=== PATIENT | male | born 1950 | race Caucasian/White ===

== ENCOUNTER → 2024-09-04 | Outpatient (CLI) | payer MEDICARE, SELFPAY ==
[2024-09-04 12:20] LABS: Absolute Lymphocyte Count 1.51 X10^3/uL (0.83-4.51); Absolute Neutrophil Count 3.3 X10^3/uL (2.0-7.7); Basophil# 0.08 X10^3/uL; Basophil% 1.4 % (0-1); Eosinophil# 0.22 X10^3/uL; Eosinophils% 3.9 % (0-5); Hemoglobin 12.1 g/dL (13.0-16.5); Lymphocyte # 1.51 X10^3/ul (0.83-4.51); Mean Corp Hgb Conc 34.6 g/dL (32-36); Mean Corpuscular Hgb 35.8 pg (27.0-32.0); Mean Corpuscular Volume 103.6 fL (80-94); Mean Platelet Vol. 12.2 fl (6.2-12.0); Monocyte# 0.47 X10^3/uL; Monocyte% 8.4 % (0-10); NRBC Flagged by Analyzer 0 % (0-5); Neutrophil # 3.29 X10^3/uL (2.7-7.7); Neutrophil % 58.8 % (47-70); Platelet Count 220 K/mm3 (150-450); RBC Distribution Width CV 12.1 % (11.6-14.6); RBC Distribution Width SD 45.8 fl (35.1-43.9); Red Blood Count 3.38 M/mm3 (4.6-6.2); White Blood Count 5.6 K/mm3 (4.4-11.0)
[2024-09-04 12:48] LABS: AST(SGOT) 24 U/L (15-37); Alanine Aminotransfer ALT/SGPT 25 U/L (16-61); Albumin, Serum 3.3 g/dL (3.2-5.0); Alkaline Phosphatase 37 U/L (45-117); Anion Gap 5 (5-15); BUN 21 mg/dL (7-18); BUN/Creat Ratio 11.6 RATIO (10-20); Chloride 103 mmol/L (98-107); Creatinine, Serum 1.81 mg/dL (0.70-1.30); EST Glomerular Filtration Rate 39 mL/min (>60); Est Glom Filt Rate - Afr Amer 47 mL/min (>60); Globulin 3.4 g/dL (2.2-4.2); Glucose 246 mg/dL (74-106); Potassium 4.7 mmol/L (3.5-5.1); Protein, Total 6.7 g/dL (6.4-8.2); Sodium Level 133 mmol/L (136-145); T4 Free Direct 0.89 ng/dL (0.76-1.46)
[2024-09-04 13:36] LABS: Hemoglobin A1c 7.5 % (3.8-5.6)
== END | disposition home or self-care (01) ==
PROVIDERS: PCP Internal Medicine
DX: E11.22 Type 2 diabetes mellitus with diabetic chronic kidney disease (principal); Z79.4 Long term (current) use of insulin; N18.32 Chronic kidney disease, stage 3b
CPT/HCPCS: 36415; 80053; 83036; 84439; 84443; 85025

== ENCOUNTER → 2024-12-02 | Outpatient (CLI) | payer MEDICARE, MEDICAID, SELFPAY ==
[2024-12-02 13:22] LABS: Absolute Lymphocyte Count 2.44 X10^3/uL (0.83-4.51); Absolute Neutrophil Count 3.9 X10^3/uL (2.0-7.7); Basophil# 0.05 X10^3/uL; Basophil% 0.7 % (0-1); Eosinophils% 4.1 % (0-5); Hematocrit 35.9 % (40-54); Lymphocyte # 2.44 X10^3/ul (0.83-4.51); Lymphocyte % 33.7 % (19-41); Mean Corp Hgb Conc 33.4 g/dL (32-36); Mean Corpuscular Hgb 33.3 pg (27.0-32.0); Mean Corpuscular Volume 99.7 fL (80-94); Mean Platelet Vol. 11.4 fl (6.2-12.0); Monocyte# 0.55 X10^3/uL; Monocyte% 7.6 % (0-10); NRBC Flagged by Analyzer 0 % (0-5); Neutrophil # 3.87 X10^3/uL (2.7-7.7); Neutrophil % 53.3 % (47-70); Platelet Count 277 K/mm3 (150-450); RBC Distribution Width SD 47.8 fl (35.1-43.9); White Blood Count 7.3 K/mm3 (4.4-11.0)
[2024-12-02 13:50] LABS: Vitamin B12 440 pg/mL (211-911)
[2024-12-02 14:12] LABS: Microalbumin:Creatinine Ratio 491.2 mg/g CRE (<30 mg/g CRE)
[2024-12-02 14:29] LABS: ALB/GLOB Ratio 0.9 RATIO (0.9-2.4); AST(SGOT) 33 U/L (15-37); Alanine Aminotransfer ALT/SGPT 31 U/L (16-61); Albumin, Serum 3.6 g/dL (3.2-5.0); Alkaline Phosphatase 42 U/L (45-117); Anion Gap 7 (5-15); BUN 24 mg/dL (7-18); Calcium,Total 9.4 mg/dL (8.5-10.1); Chloride 107 mmol/L (98-107); Creatinine, Serum 1.85 mg/dL (0.70-1.30); EST Glomerular Filtration Rate 38 mL/min (>60); Est Glom Filt Rate - Afr Amer 46 mL/min (>60); Ferritin 190 ng/mL (26-388); Globulin 3.8 g/dL (2.2-4.2); Glucose 156 mg/dL (74-106); Iron 97 ug/dL (65-175); Iron Binding Capacity,Total 377 ug/dL (250-450); Magnesium 2.1 mg/dL (1.6-2.6); Potassium 4.8 mmol/L (3.5-5.1); Protein, Total 7.4 g/dL (6.4-8.2); Sodium Level 139 mmol/L (136-145); T4 Free Direct 0.94 ng/dL (0.76-1.46)
[2024-12-05 13:07] LABS: Zinc, WHOLE BLOOD 632 ug/dL (440-860)
[2024-12-06 14:08] LABS: Methylmalonic Acid Bld 295 nmol/L (0-378)
== END | disposition home or self-care (01) ==
PROVIDERS: PCP Internal Medicine; Referring Provider Internal Medicine; Visit Provider Internal Medicine
DX: E11.59 Type 2 diabetes mellitus with other circulatory complications (principal); E11.65 Type 2 diabetes mellitus with hyperglycemia; Z79.4 Long term (current) use of insulin; R53.82 Chronic fatigue, unspecified; I15.2 Hypertension secondary to endocrine disorders; D64.9 Anemia, unspecified
CPT/HCPCS: 36415; 80053; 82043; 82570; 82607; 82728; 82746; 83540; 83550; 83735; 83921; 84439; 84443; 84630; 85025

== ENCOUNTER → 2024-12-24 | Outpatient (CLI) | payer MEDICARE, MEDICAID, SELFPAY ==
[2024-12-24 20:32] LABS: BUN 35 mg/dL (4-19); BUN/Creat Ratio 17.5 RATIO (10-20); EST Glomerular Filtration Rate 35 (>60); Glucose 158 mg/dL (70-99); Phosphorus 3.3 mg/dL (2.7-4.5)
[2024-12-24 20:42] LABS: Protein, Urine (Random) 35 mg/dL (<=12); Protein:Creat Ratio 383 mg/g CRE (0-200)
[2024-12-25 03:42] LABS: Carbon Dioxide 20.2 mmol/L (21.0-32.0); Chloride 103 mmol/L (98-107); Potassium 4.8 mmol/L (3.5-5.1); Sodium Level 140 mmol/L (136-145)
== END | disposition home or self-care (01) ==
LOC: LAB 13:00
PROVIDERS: PCP Internal Medicine
DX: N18.32 Chronic kidney disease, stage 3b (principal)
CPT/HCPCS: 36415; 80069; 82570; 84156

== ENCOUNTER → 2025-01-27 | Outpatient (REF) | payer MEDICARE, MEDICAID, SELFPAY ==
[2025-01-27 08:38] LABS: Hematocrit 31.4 % (40-54); Hemoglobin 10.7 g/dL (13.0-16.5); Mean Corp Hgb Conc 34.1 g/dL (32-36); Mean Corpuscular Hgb 33.2 pg (27.0-32.0); Mean Corpuscular Volume 97.5 fL (80-94); Mean Platelet Vol. 11.5 fl (6.2-12.0); Platelet Count 339 K/mm3 (150-450); RBC Distribution Width CV 13.4 % (11.6-14.6); RBC Distribution Width SD 47.8 fl (35.1-43.9); Red Blood Count 3.22 M/mm3 (4.6-6.2); White Blood Count 7.4 K/mm3 (4.4-11.0)
[2025-01-27 09:03] LABS: Magnesium 1.7 mg/dL (1.5-2.2); Vitamin B12 536 pg/mL (180-914); Vitamin D,25 Hydroxy 14.8 ng/mL (30-100)
[2025-01-27 09:12] LABS: Hemoglobin A1c 7.7 % (<=5.6)
[2025-01-27 09:22] LABS: Cholesterol 116 mg/dL (<=200); High Density Lipoprotein 28 mg/dL; Low Density Lipoprotein Calc. 37 mg/dL; Triglycerides 255 mg/dL; Very Low Density Lipoprotein 51 mg/dL (5-40); cholesterol:hdl ratio screen 4.11
[2025-01-27 09:23] LABS: ALB/GLOB Ratio 1.3 RATIO (0.9-2.4); AST(SGOT) 20 U/L (<=37); Alanine Aminotransfer ALT/SGPT 17 U/L (<=46); Albumin, Serum 3.5 g/dL (3.4-4.8); Alkaline Phosphatase 44 U/L (40-129); Anion Gap 12 (5-15); BUN 41 mg/dL (4-19); BUN/Creat Ratio 18.5 RATIO (10-20); Calcium,Total 9.5 mg/dL (7.6-11.0); Carbon Dioxide 17.6 mmol/L (21.0-32.0); Chloride 105 mmol/L (98-108); EST Glomerular Filtration Rate 30 (>60); Globulin 2.7 g/dL (2.2-4.2); Glucose 258 mg/dL (70-99); Potassium 5.1 mmol/L (3.3-5.1); Protein, Total 6.3 g/dL (5.9-8.4); Sodium Level 135 mmol/L (133-145); Total Bilirubin < 0.15 mg/dL (0.00-1.30)
== END ==
LOC: OLS.SWAL 04:00
PROVIDERS: PCP Internal Medicine; Referring Provider Internal Medicine; Visit Provider Internal Medicine
DX: D64.9 Anemia, unspecified (principal); I10 Essential (primary) hypertension; E78.5 Hyperlipidemia, unspecified
CPT/HCPCS: 36415; 80053; 80061; 82306; 82607; 83036; 83735; 84443; 85027

== ENCOUNTER → 2025-02-19 | Outpatient (REF) | payer MEDICARE, MEDICAID, SELFPAY ==
[2025-02-19 09:13] LABS: Hematocrit 26.7 % (40-54); Hemoglobin 9.2 g/dL (13.0-16.5); Mean Corp Hgb Conc 34.5 g/dL (32-36); Mean Corpuscular Hgb 33.1 pg (27.0-32.0); Mean Platelet Vol. 11.7 fl (6.2-12.0); Platelet Count 253 K/mm3 (150-450); RBC Distribution Width CV 12.7 % (11.6-14.6); RBC Distribution Width SD 44.9 fl (35.1-43.9); Red Blood Count 2.78 M/mm3 (4.6-6.2); White Blood Count 8.5 K/mm3 (4.4-11.0)
[2025-02-19 09:37] LABS: Albumin, Serum 3.1 g/dL (3.4-4.8); Anion Gap 11 (5-15); BUN 35 mg/dL (4-19); BUN/Creat Ratio 19.4 RATIO (10-20); Calcium,Total 8.7 mg/dL (7.6-11.0); Carbon Dioxide 19.7 mmol/L (21.0-32.0); Chloride 100 mmol/L (98-108); Creatinine, Serum 1.78 mg/dL (0.70-1.20); EST Glomerular Filtration Rate 39 (>60); Glucose 324 mg/dL (70-99); Phosphorus 3.1 mg/dL (2.7-4.5); Potassium 4.3 mmol/L (3.3-5.1); Sodium Level 131 mmol/L (133-145)
== END ==
LOC: OLS.SWAL 08:10
PROVIDERS: PCP Internal Medicine
DX: D64.9 Anemia, unspecified (principal); N18.32 Chronic kidney disease, stage 3b
CPT/HCPCS: 36415; 80069; 85027

== ENCOUNTER → 2025-02-23 17:50 | Outpatient (REF) | payer MEDICARE, MEDICAID, SELFPAY ==
[2025-02-24 09:03] LABS: Bacteria 0 SEEN /hpf (None Seen); Mucous, Urine 0 SEEN /hpf (<or=2+); Red Blood Cells-Urine 0 SEEN /hpf (0-5); Squamous Epithelial Cells - UA 0 SEEN /hpf (0-5); White Blood Cells 0 SEEN /hpf (0-5)
[2025-02-24 09:32] LABS: Color, Urine Yellow (Yellow); Glucose, Dipstick 250 mg/dl (Normal); Ketone-Dipstick Negative (Negative); Leukocyte Esterase-Dipstick Negative /ul (Negative); Nitrite-Dipstick Negative (Negative); Occult Blood-Urine Negative /ul (Negative); Protein-Dipstick 100 mg/dl (Negative); Specific Gravity, Urine 1.015 (1.002-1.030); Urine Bilirubin Dipstick Negative (Negative); Urine Clarity Clear (Clear); Urine Urobilinogen Normal (Normal)
== END ==
LOC: OLS.SWAL 17:50
PROVIDERS: PCP Internal Medicine; Referring Provider Internal Medicine; Visit Provider Internal Medicine
DX: I10 Essential (primary) hypertension (principal); E11.9 Type 2 diabetes mellitus without complications
CPT/HCPCS: 81001

== ENCOUNTER 2025-04-10 15:16 | Emergency (ER) | payer MEDICARE, MEDICAID, SELFPAY ==
[2025-04-10 15:18] VITALS: BP 72/53; PULSE 72; RESP 16; TEMP 36.2; O2SAT 98
[2025-04-10 15:19] VITALS: BMI 21.7
[2025-04-10 15:32] VITALS: BP 101/61; PULSE 62; RESP 16; O2SAT 97
--- NOTE | 2025-04-10 15:53 | RAD_ITS ---
PROCEDURE: ANKLE MIN 3 VIEWS 04/10/2025 REASON FOR EXAM: PAIN, FALL TECHNIQUE: 3 views of the right ankle COMPARISON: None. RAD/Ankle min 3 Views IMPRESSION: An oblique intra-articular fracture of the distal right fibula is seen, mildly displaced, and also involving a portion of the lateral malleolus. Minimal degenerative changes of the ankle joint are otherwise noted. Mild posterior and inferior calcaneal spurring is seen. Reading Location: [address]
[2025-04-10] MEDS: Acetaminophen 325 MG Tablet 650 MG PO (16:00)
--- NOTE | 2025-04-10 16:00 | RAD_ITS ---
PROCEDURE: KNEE 3 VIEWS 04/10/2025 REASON FOR EXAM: PAIN, FALL TECHNIQUE: Four views of the right knee were performed. COMPARISON: None. FINDINGS: There is no evidence of fracture or dislocation. The patellofemoral joint and the medial and lateral joint space compartments of the knee are maintained. There is no knee joint effusion. There is enthesopathy of the patella. There is chondrocalcinosis of the medial and lateral menisci. There are vascular calcifications in the distal thigh. RAD/Knee 3 Views IMPRESSION: 1. No evidence of acute injury. 2. Chondrocalcinosis consistent with CPPD. 3. Other findings as noted. Reading Location: [place] [id number]
[2025-04-10 16:58] VITALS: BP 142/68; PULSE 64; RESP 16; O2SAT 98
--- NOTE | 2025-04-10 17:01 | ED.VIS.LOWEX ---
HPI <ALLAN Marquez - Last Filed: 04/10/25 17:56> History of Present Illness Chief Complaint: Lower Extremity Injury Narrative Narrative: Patient presenting today with concerns for a right ankle fracture. He had a mechanical fall on Monday, he slipped and twisted his ankle and hit his right knee against something. He did not hit his head, there was no LOC. He lives in an assisted living facility, they did come out and do a x-ray of his right ankle and told him it was broken, he is not sure where. He was not placed in a splint or boot. He was given no follow-up information. He has been walking on his ankle. His daughter came to visit today, he continued to complain of pain to his right knee, they did not do any imaging of his right knee, she became concerned and the facility recommended that she bring him here for evaluation. He otherwise denies any injury. PFSH <ALLAN Marquez - Last Filed: 04/10/25 17:56> [facility] Allergy/AdvReac Type Severity Reaction Status Date / Time No Known Allergies Allergy Verified 04/10/25 15:36 Social History Smoking Status: Former smoker ROS <ALLAN Marquez - Last Filed: 04/10/25 17:56> ROS ED Constitutional Constitutional ED: Denies chills or fever(s) Cardiovascular Cardiovascular: Denies chest pain Respiratory/Chest Respiratory/Chest: Denies dyspnea Gastrointestinal Gastrointestinal: Denies abdominal pain, nausea or vomiting Genitourinary Genitourinary ED: Denies dysuria, hematuria or urinary urgency Musculoskeletal Musculoskeletal: Reports arthralgias Integumentary Denies Abrasions Neurologic Neurologic: Denies paresthesias EXAM <ALLAN Marquez - Last Filed: 04/10/25 17:56> Physical Exam Const Vital Signs: 04/10/25 15:18 04/10/25 15:32 04/10/25 15:33 Temperature 97.2 F L Temperature Source Temporal Pulse Rate 72 62 Respiratory Rate 16 16 Respiratory Effort Normal Respiratory Pattern Normal Blood Pressure 72/53 L 101/61 Blood Pressure Mean 59 74 Pulse Ox 98 97 Oxygen Delivery Method Room Air Room Air 04/10/25 16:58 04/10/25 17:27 Temperature 98.0 F Temperature Source Pulse Rate 64 62 Respiratory Rate 16 17 Respiratory Effort Respiratory Pattern Blood Pressure 142/68 H 151/66 H Blood Pressure Mean 92 94 Pulse Ox 98 98 Oxygen Delivery Method Room Air Positive well nourished, well developed and no apparent distress General Appearance ED: well developed HEENT Reports normocephalic and head/scalp atraumatic Mouth ED: Yes moist mucous membranes normal Eyes PERRL and EOMs intact bilaterally Neck full ROM and supple Chest Wall inspection of chest normal Resp normal respiratory effort and clear to auscultation bilaterally Cardio regular rate and regular rhythm Back/Spine normal ROM and normal to inspection Extremity normal to inspection and full ROM Extremity Narrative: No joint effusion, full range of motion to the right knee, no laxity with varus or valgus stress, negative anterior drawer test. Pain to palpation to the medial aspect of the right knee. Pain to the right lateral malleolus with mild bruising. No significant edema. No tenderness to the right foot, no proximal fibular tenderness. Right DP pulse 2+, good cap refill, sensation intact. Neuro oriented x3, CN's II-XII intact bilaterally, moves all extremities, no focal motor deficits and no sensory deficits noted Sensorium / Orientation: awake and alert Psych mental status grossly normal and thought process normal Skin no rashes or lesions noted and no wounds <Dr. Joel Slaughter DO - Last Filed: 04/11/25 21:12> Physical Exam Const Vital Signs: 04/10/25 15:18 04/10/25 15:32 04/10/25 15:33 Temperature 97.2 F L Temperature Source Temporal Pulse Rate 72 62 Respiratory Rate 16 16 Respiratory Effort Normal Respiratory Pattern Normal Blood Pressure 72/53 L 101/61 Blood Pressure Mean 59 74 Pulse Ox 98 97 Oxygen Delivery Method Room Air Room Air 04/10/25 16:58 04/10/25 17:27 Temperature 98.0 F Temperature Source Pulse Rate 64 62 Respiratory Rate 16 17 Respiratory Effort Respiratory Pattern Blood Pressure 142/68 H 151/66 H Blood Pressure Mean 92 94 Pulse Ox 98 98 Oxygen Delivery Method Room Air MDM <ALLAN Marquez - Last Filed: 04/10/25 17:56> [facility] MDM Narrative Medical decision making narrative: Patient presenting today due to concerns for right knee pain and a right ankle fracture. He had a mechanical fall on Monday causing the right ankle and right knee injury. The facility did x-ray his right ankle and told him it was broken but he was not placed in any splint or boot and has no follow-up information with orthopedics or podiatry. He is wanting to have his right knee examined as well. He initially was labeled as hypotension, however his blood pressure was 151/66. He reports that his blood pressure does run low occasionally. He has no symptoms associated with low blood pressure. X-ray of the right ankle shows a oblique intra-articular fracture of the distal right fibula that is mildly displaced and right knee x-ray shows no acute findings. I did speak with Dr. Badillo, he recommends placing patient in a walking boot and having him follow-up in the office. RICE instructions were discussed. He was given Tylenol here for pain and can continue Tylenol at home as needed. He will be discharged home in stable condition. Radiography X-Ray: Read by ED Physician Diagnostic Testing: Clinical Impression(s) from Imaging Studies Ankle X-Ray 04/10/25 15:53 IMPRESSION: An oblique intra-articular fracture of the distal right fibula is seen, mildly displaced, and also involving a portion of the lateral malleolus. Minimal degenerative changes of the ankle joint are otherwise noted. Mild posterior and inferior calcaneal spurring is seen. Reading Location: [id number] Knee X-Ray 04/10/25 16:00 IMPRESSION: 1. No evidence of acute injury. 2. Chondrocalcinosis consistent with CPPD. 3. Other findings as noted. Reading Location: [id number] <Dr. Jole Dickson-Chela, DO - Last Filed: 04/11/25 21:12> [facility] Narrative Medical decision making narrative: Patient presenting today due to concerns for right knee pain and a right ankle fracture. He had a mechanical fall on Monday causing the right ankle and right knee injury. The facility did x-ray his right ankle and told him it was broken but he was not placed in any splint or boot and has no follow-up information with orthopedics or podiatry. He is wanting to have his right knee examined as well. He initially was labeled as hypotension, however his blood pressure was 151/66. He reports that his blood pressure does run low occasionally. He has no symptoms associated with low blood pressure. X-ray of the right ankle shows a oblique intra-articular fracture of the distal right fibula that is mildly displaced and right knee x-ray shows no acute findings. I did speak with Dr. Badillo, he recommends placing patient in a walking boot and having him follow-up in the office. RICE instructions were discussed. He was given Tylenol here for pain and can continue Tylenol at home as needed. He will be discharged home in stable condition. Supervisory Physician Note Patient was seen and examined with the Advanced Practice Provider. Nursing notes and vital signs have been reviewed. Pertinent old records have been reviewed. I agree with the essential elements of the ELGIN's history, physical exam, assessment, and plan. The differential diagnosis and management options were discussed with the ELGIN. I participated in determining and agree with the management, procedures, final impression and disposition as documented. See changes noted by me. Please see addendum or separate note for any additional details. X-ray of the right knee and right ankle were personally reviewed interpreted by me, ED physician. X-ray of the right knee without dislocation or fracture. X-ray of the right ankle with fracture of the distal right fibula. Patient discussed with orthopedics, agree patient is appropriate for boot. Follow-up in their office. Patient discharged home. Impression: 1. Closed right distal fibula fracture 2. Right knee contusion 3. Mechanical fall Radiography Diagnostic Testing: Clinical Impression(s) from Imaging Studies Ankle X-Ray 04/10/25 15:53 IMPRESSION: An oblique intra-articular fracture of the distal right fibula is seen, mildly displaced, and also involving a portion of the lateral malleolus. Minimal degenerative changes of the ankle joint are otherwise noted. Mild posterior and inferior calcaneal spurring is seen. Reading Location: [id number] Knee X-Ray 04/10/25 16:00 IMPRESSION: 1. No evidence of acute injury. 2. Chondrocalcinosis consistent with CPPD. 3. Other findings as noted. Reading Location: [place] [id number] Discharge Plan Triage Chief Complaint: Lower Extremity Injury Other Complaint: Hypotension ED Midlevel Provider: Rakel Landers ED Provider: Joel Slaughter Dx/Rx/DC Orders Clinical Impression: Closed right ankle fracture, Contusion of knee, right Instructions: ED Ankle Fracture Primary Care Provider: Mickie Mae Referrals: Mickie Mae MD [Primary Care Provider] - Raghav Badillo MD [Med Staff - Active Staff] - 5-7 Days Activity Restrictions/Additional Instructions: Follow-up with orthopedics, you can take the boot off whenever you are sitting/lying down, use it for walking. Ice your ankle and knee, take Tylenol as needed for pain. Print Language: Jamaican Disposition Disposition: Home, Self Care Discharge Date/Time: 04/10/25 17:39
--- NOTE | 2025-04-10 17:03 | ED.RN ---
xray read fx to fibula
[2025-04-10 17:27] VITALS: BP 151/66; PULSE 62; RESP 17; TEMP 36.7; O2SAT 98
== END 2025-04-10 17:39 | disposition home or self-care (01) ==
PROVIDERS: Emergency Provider Surgery; PCP Internal Medicine; Visit Provider Surgery
DX: S82.431A Displaced oblique fracture of shaft of right fibula, initial encounter for closed fracture (principal); S80.01XA Contusion of right knee, initial encounter; W01.10XA Fall on same level from slipping, tripping and stumbling with subsequent striking against unspecified object, initial encounter; Y92.099 Unspecified place in other non-institutional residence as the place of occurrence of the external cause; Z87.891 Personal history of nicotine dependence
CPT/HCPCS: 73562; 73610; 99284; A4216

== ENCOUNTER → 2025-04-16 04:00 | Outpatient (REF) | payer MEDICARE, MEDICAID, SELFPAY ==
[2025-04-16 07:52] LABS: Hematocrit 29.1 % (40-54); Hemoglobin 9.8 g/dL (13.0-16.5); Mean Corp Hgb Conc 33.7 g/dL (32-36); Mean Corpuscular Hgb 32.5 pg (27.0-32.0); Mean Corpuscular Volume 96.4 fL (80-94); Platelet Count 302 K/mm3 (150-450); RBC Distribution Width CV 13.2 % (11.6-14.6); RBC Distribution Width SD 46.5 fl (35.1-43.9); Red Blood Count 3.02 M/mm3 (4.6-6.2); White Blood Count 8.3 K/mm3 (4.4-11.0)
== END ==
LOC: OLS.SWAL 04:00
PROVIDERS: PCP Internal Medicine
DX: E78.5 Hyperlipidemia, unspecified (principal); D64.9 Anemia, unspecified; N18.32 Chronic kidney disease, stage 3b
CPT/HCPCS: 36415; 85027

== ENCOUNTER → 2025-04-22 | Outpatient (REF) | payer MEDICARE, MEDICAID, SELFPAY ==
--- OUTSIDE RECORDS SUMMARY | 2025-04-22 04:58 | XMS RPT_ITS | CCD ---
Author Organization [facility] Care Team Providers Care Special Effects Specialist Name Role Phone Sulove, Saksham Unavailable Kamadana, Rochelle Unavailable Cameron Munguia Unavailable Aquiles Herrera Unavailable Claudio, Nancy-Chiew Unavailable PHYLLIS MAE Attending Unavailable CARMELITA, PHYLLIS Referring Unavailable Sulove, Saksham Primary Care Provider Mattadana, Rochelle Unavailable Cameron Munguia Unavailable Aquiles Herrera Unavailable Claudio, Nancy-Chiew Unavailable Unavailable Primary Care Provider Unavailabl e Sulove, Saksham Attending Unavailable Sulove, Saksham Primary Care Unavailable Davi Nelson Attending Unavailable Sulove, Saksham Primary Care Unavailable Davi Nelson Attending Unavailable Sulove, Saksham Referring Unavailable Sulove, Saksham Primary Care Unavailable Davi Nelson Admitting Unavailable Lola Cruz Admitting Unavailable Lola Cruz Attending Unavailable Sulove, Saksham Primary Care Unavailable Sulove, Saksham Attending Unavailable Sulove, Saksham Primary Care Unavailable Sulove, Saksham Primary Care Unavailable Ivanauskas, Saulius Admitting Unavailable Ivanauskas, Saulius Attending Unavailable Sulove, Saksham Attending Unavailable Sulove, Saksham Primary Care Unavailable Sulove, Saksham Admitting Unavailable Sulove, Saksham Attending Unavailable Sulove, Saksham Primary Care Unavailable Zarrabi, Phyllis Attending Unavailable Sulove, Saksham Primary Care Unavailable Zarrabi, Phyllis Attending Unavailable Sulove, Saksham Primary Care Unavailable Zarrabi, Phyllis Admitting Unavailable Zarrabi, Phyllis Attending Unavailable Sulove, Saksham Primary Care Unavailable Kamadana, Rochelle Admitting Unavailable Kamadana, Rochelle Attending Unavailable Lola Cruz Admitting Unavailable Lola Cruz Attending Unavailable Esdras, Guillermo Admitting Unavailabl e Esdras, Guillermo Attending Unavailabl e Togliatti, Josh J Attending Unavailabl e Togliatti Josh J Admitting Unavailabl e Lenehan Aquiles P Admitting Unavailable Camiloehan Aquiles P Attending Unavailable Lenehan, Aquiles P Admitting Unavailable Lenehan Aquiles P Attending Unavailable Lola Cruz Admitting Unavailable Lola Cruz Attending Unavailable Kamadana, Rochelle Admitting Unavailable Kamadana, Rochelle Attending Unavailable Esdras, Guillermo Admitting Unavailabl e Esdras, Guillermo Attending Unavailabl e Menjivar Tristen A Admitting Unavailable Menjivar, Tristen A Attending Unavailable Esdras, Guillermo Admitting Unavailabl e Esdras, Guillermo Attending Unavailabl e [facility], Phyllis Primary Care Provider Kamadana, Rochelle Unavailable Cameron Munguia Unavailable Aquiles Herrera Unavailable [phone] ZARRABI, PHYLLIS Primary Care Unavailable BRET FUENTES Attending Unavailable Zarrabi, Phyllis Primary Care Provider RAY SCHERER Attending Unavailable SUMAYA BRADLEY Consulting Unavailabl e ZARRABI, PHYLLIS Primary Care Unavailable RAY SCHERER Admitting Unavailable RAY SCHERER Referring Unavailable ZARRABI, PHYLLIS Primary Care Unavailable Zarrabi, Phyllis Unavailable Kamadana, Rochelle Unavailable AQUILES HERRERA Admitting Unavailabl e AQUILES HERRERA Referring Unavailabl e YEFRIRRCLEMENCIA, PHYLLIS Primary Care Unavailable Zarrabi, Phyllis Unavailable Unavailable Zarrabi, Phyllis Unavailable Unavailable Sulove, Saksham Unavailable Unavailable Yefrirrclemencia, Phyllis Primary Care Provider Zarrabi, Phyllis Unavailable Claudio, Nancy-Chiew Unavailable Cameron Munguia Unavailable Aquiles Herrera Unavailable Carmelita WILSON, [facility] [place] Primary Care Provider Phyllis Mae MD Unavailable Jonatan WILSON, Rochelle Unavailable [phone] Felice PICKETT DO W. Don Unavailable [phone] Aquiles Herrera MD Unavailable González WILSON, Nancy-Chiew Unavailable Carmelita WILSON [facility] [place] [facility] Primary Care Provider Phyllis Mae MD Unavailable Jonatan WILSON, Rochelle Unavailable Felice PICKETT DO, W. Don Unavailable Aquiles Herrera MD Unavailable González WILSON, Nancy-Chiew Unavailable Zarrabi, Phyllis Unavailable Unavailable Unavailable Felice PICKETT DO W. Don Unavailable Aquiles Herrera MD Unavailable Phyllis Mae MD Unavailable Unavailable Zarrabi, Phyllis Unavailable Unavailable Sulove, Saksham Unavailable Unavailable Carmelita WILSON, [facility] [place] Primary Care Provider Phyllis Mae MD Unavailable Thao Cheung MDapna Unavailable Felice PICKETT DO, W. Don Unavailable Aquiles Herrera MD Unavailable Ellen Claudio MD Unavailable Unavailable Unavailable Juarez Maeanak Unavailable Christopher Galindo Unavailable Phyllis Mae MD Primary Care Provider Phyllis Mae MD Unavailable Rochelle Cheung MD Unavailable Felice PICKETT DO, W. Don Unavailable [phone] Aquiles Herrera MD Unavailable Ellen Claudio MD Unavailable Carmelita, Dr. Corado Attending Unavailable Zarrabi, Dr. Corado Primary Care Unavailable ЕЛЕНА Galindo Attending Unavai lable Carmelita, Dr. Corado Primary Care Unavailable Zarrabi, Dr. Corado Attending Unavailable Zarrabi, Dr. Corado Primary Care Unavailable Zarrabi, Dr. Corado Primary Care Unavailable Zarrabi, Dr. Corado Attending Unavailable Zarrabi, Dr. Corado Attending Unavailable Zarrabi, Dr. Corado Primary Care Unavailable Zarrabi, Dr. Corado Attending Unavailable Zarrabi, Dr. Corado Primary Care Unavailable Phyllis Mae MD Primary Care Provider Ashlie WILSON [facility] Primary Care Provider [phone] Phyllis Mae Primary Care Unavailable Phyllis Mae Attending Unavailable DarcyabiJuarezPhyllis Referring Unavailable Phyllis Mae Primary Care Unavailable Phyllis Mae Attending Unavailable Joao Maek Referring Unavailable Phyllis Mae Primary Care Unavailable Joao Maek Attending Unavailable Yefrirrabi, Phyllis Referring Unavailable Zarrabi, Phyllis Primary Care Unavailable Zarrabi, Phyllis Attending Unavailable Zarrabi, Phyllis Referring Unavailable Zarrabi, Phyllis Primary Care Unavailable Zarrabi, Phyllis Attending Unavailable Zarrabi, Phyllis Referring Unavailable Zarrabi , Phyllis Primary Care Provider Phyllis Mae MD Unavailable [phone] Marley Velarde RN Unavailable Unavailable ZARRABI, PHYLLIS Primary Care Unavailable SCOTT WARREN Attending Unavailable KAMADANA, ROCHELLE Referring Unavailable ZARRABI, PHYLLIS Primary Care Unavailable ZARRABI, PHYLLIS Primary Care Unavailable ZARRABI, PHYLLIS Primary Care Unavailable MATTADANAXU Referring Unavailable ZARRABI, PHYLLIS Primary Care Unavailable BUDDY LIN II Attending Un available BUDDY LIN II Referring Un available ZARRABI, PHYLLIS Primary Care Unavailable ZARRABI, PHYLLIS Primary Care Unavailable ZARRABI, PHYLLIS Primary Care Unavailable AQUILES HERRERA Referring Unavailabl e AQUILES HERRERA Attending Unavailabl e ZARRABI, PHYLLIS Primary Care Unavailable RICARDO DEJESUS Attending Unavailable AQUILES HERRERA Attending Unavailabl e ZARRABI, PHYLLIS Primary Care Unavailable AQUILES HERRERA Referring Unavailabl e AQUILES HERRERA Attending Unavailabl e ZARRABI, PHYLLIS Primary Care Unavailable AQUILES HERRERA Referring Unavailabl e AQUILES HERRERA Attending Unavailabl e ZARRABI, PHYLLIS Primary Care Unavailable AQUILES HERRERA Referring Unavailabl e ZARRABI, PHYLLIS Referring Unavailable ZARRABI, PHYLLIS Primary Care Unavailable ZARRABI, PHYLLIS Referring Unavailable ZARRABI, PHYLLIS Primary Care Unavailable ZARRABI, PHYLLIS Primary Care Unavailable ZARRABI, PHYLLIS Primary Care Unavailable ZARRABI, PHYLLIS Primary Care Unavailable Felice PICKETT, DO, WVito Don Unavailable Aquiles Herrera MD Unavailable [phone] ZARRABI, PHYLLIS Primary Care Unavailable AQUILES HERRERA Attending Unavailabl e FIOR FORBES Attending Unavailable ZARRABI, PHYLLIS Primary Care Unavailable HASSMANN II, BUDDY HERNANDEZ Attending Un available ZARRABI, PHYLLIS Primary Care Unavailable FIOR FORBES Attending Unavailable ZARRABI, PHYLLIS Primary Care Unavailable WATERSDAVID Attending Unavailab le ZARRABI, PHYLLIS Primary Care Unavailable ZARRABI, PHYLLIS Primary Care Unavailable HASSMANN II, BUDDY HERNANDEZ Referring Un available HASSMANN II, BUDDY HERNANDEZ Admitting Un available ZARRABI, PHYLLIS Primary Care Unavailable HASSMANN II, BUDDY HERNANDEZ Attending Un available ZARRABI, PHYLLIS Primary Care Unavailable DAVID WATERS Attending Unavailab le ZARRABI, PHYLLIS Primary Care Unavailable HASSMANN II, BUDDY HERNANDEZ Attending Un available ZARRABI, PHYLLIS Primary Care Unavailable HASSMANN II, BUDDY HERNANDEZ Attending Un available ZARRABI, PHYLLIS Primary Care Unavailable CRASKE III, W. DON Admitting Unavailable CRASKE III, W. DON Attending Unavailable CRASKE III, W. DON Referring Unavailable ZARRABI, PHYLLIS Primary Care Unavailable HASSMANN II, BUDDY HERNANDEZ Attending Un available Dr. Phyllis Mae MD Primary Care Provider Dr. Phyllis Mae MD Attending Provider Dr. Phyllis Mae MD Referring Provider ROCHELLE CHEUNG Attending Provider ROCHELLE CHEUNG Referring Provider Jenni WILSON, Dr. Doll Attending Provider Unavaila Dr. Sharmila Schfaer MD Referring Provider Unavaila dolly ASIFRRABI, PHYLLIS Attending Unavailable ZARRABI, PHYLLIS Primary Care Unavailable ZARRABI, PHYLLIS Attending Unavailable ZARRABI, PHYLLIS Primary Care Unavailable ZARRABI, PHYLLIS Attending Unavailable ZARRABI, PHYLLIS Primary Care Unavailable ZARRABI, PHYLLIS Attending Unavailable ZARRABI, PHYLLIS Primary Care Unavailable Carmelita WILSON, Dr. Corado Primary Care Provider [phone] Manohar Pablo MD Attending Provider Unavailable Dr. Joel Slaughter DO Emergency Provider Dr. Joel Slaughter DO Attending Provider Manohar Pablo MD Referring Provider Unavailable Dr. Phyllis Mae MD Referring Provider Deshaun Salcedo MD Attending Provider [phone] Zarrabi, Phyllis Referring Unavailable Zarrabi, Phyllis Primary Care Unavailable Deshaun Salcedo Attending Unavailable Zarrabi, Phyllis Primary Care Unavailable Manohar Bartholomew Attending Unavailable Samy OLS, Manohar Referring Unavailable Gudla OLS, Sharmila Attending Unavailable Gudla OLS, Sharmila Referring Unavailable Zarrabi, Phyllis Primary Care Unavailable Zarrabi, Phyllis Primary Care Unavailable Samy LOTT, Manohar Attending Unavailable Gudla OLS, Sharmila Attending Unavailable Gudla OLS, Sharmila Referring Unavailable Zarrabi, Phyllis Primary Care Unavailable Zarrabi, Phyllis Primary Care Unavailable SIDELL, CHEYANNE Referring Unavailable SIDELL, CHEYANNE Attending Unavailable Zarrabi, Phyllis Primary Care Unavailable Zarrabi, Phyllis Attending Unavailable Zarrabi, Phyllis Referring Unavailable SIDELL, CHEYANNE Attending Unavailable SIDELL, CHEYANNE Referring Unavailable Zarrabi, Phyllis Primary Care Unavailable Zarrabi, Phyllis Primary Care Unavailable Joel Slaughter Attending Unavailabl e Allergies Allergy Classification Reported Allergen(s) Allergy Type Date of Onset Reaction(s) Facility Quinolones (antibiotic) (16 sources) levoFLOXacin; 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: [Levaquin] Drug Allergy 1 GI Intolerance [facility] varenicline (16 sources) varenicline; 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: [varenicline] Drug Allergy 8 Swelling [facility] (20 sources) varenicline; 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: [Unknown] Drug Allergy 8 Swelling [facility] (20 sources) levoFLOXacin; 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: [Levaquin] Drug Allergy Vomiting [facility] Work Phone: (20 sources) levoFLOXacin; 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: [LEVOFLOXACIN] Drug Allergy 1 GI Intolerance, Other [facility] Comment on above: vomiting Medications Current Medications Medication Drug Class(es) Dates Sig (Normalized) Sig (Original) acetaminophen 500 mg oral tablet (20 sources) Start: 04-17-2025 take 1 tablet by mouth every six hours as needed for pain Acetaminophen 500 mg tablet Active 500 mg PO EVERY 6 HOURS as needed for pain April 17, 2025 12:00am Start: 04-29-2024 take 1 tablet by silviano th every six hours as needed acetaminophen (Tylenol) 500 mg tablet Take 1 tablet (500 mg) by mouth every 6 hours if needed. 04/29/2024 Active Start: 05-04-2021 End: 05-21-2021 acetaminophen (TYLENOL) 325 MG tablet Take 2 (two) tablets (650 mg total) by mouth as needed for pain . 05/11/2021 Active Start: 04-29-2021 End: 05-11-2021 take 1 tablet by mouth every six hours as needed for headache acetaminophen (TYLENOL) tablet 650 mg Start: 03-12-2021 End: 03-22-2021 take 2 tablets by mouth every four hours as needed acetaminophen (TYLENOL) 325 MG tablet Take 2 (two) tablets (650 mg total) by mouth every 4 (four) hours as needed . 30 tablet 0 03/12/2021 03/22/2021 Active End: 04-29-2021 take 2 tablets by mouth every six hours as needed acetaminophen (TYLENOL) 325 MG tablet Take 650 mg by mouth every 6 (six) hours as needed for pain or fever . 0 04/29/2021 Discontinued [id number] actuat albuterol 0.09 mg/actuat metered dose inhaler (20 sources) beta2-Adrenergic Agonist Start: 04-17-2025 Albut alphonse Sulfate 90 mcg/actuation HFA aerosol inhaler Active INHALATION April 17, 2025 12:00am Start: 05-14-2024 End: 12-05-2024 albuterol 2.5 mg /3 mL (0.08 3 %) nebulizer solution USE 1 UNIT DOSE IN NEBULIZER EVERY 6 HOURS NEEDED. 300 mL 3 12/05/2024 12/05/2024 Discontinued (Reorder) Start: 12-26-2023 albuterol 2.5 mg /3 mL (0.083 %) nebulizer solution Indications: Chronic obstructive pulmonary disease, unspecified (Multi) USE 1 UNIT DOSE IN NEBULIZER EVERY 6 HOURS NEEDED. 150 mL 3 12/26/2023 Active Start: 11-02-2023 take 2 puff(s) by in halation every six hours for wheezing albuterol 90 mcg/actuation inhaler Indications: Pulmonary emphysema, unspecified emphysema type (Multi) USE 2 PUFFS EVERY 6 HOURS FOR SHORTNESS OF BREATH OR WHEEZING. 18 g 11 11/02/2023 Active Start: 10-10-2023 albuterol 2.5 mg /3 mL (0.083 %) nebulizer solution Indications: Chronic obstructive pulmonary disease, unspecified (CMS/HCC) USE 1 UNIT DOSE IN NEBULIZER EVERY 6 HOURS NEEDED. 150 mL 3 10/10/2023 Active Start: 05-15-2023 albuterol 2.5 mg /3 mL (0.083 %) nebulizer solution Indications: Chronic obstructive pulmonary disease, unspecified (CMS/HCC) USE 1 UNIT DOSE IN NEBULIZER EVERY 6 HOURS NEEDED. 150 mL 3 05/15/2023 Active Start: 02-15-2023 take 2 puff(s) by in halation every six hours for wheezing Ventolin HFA 90 mcg/actuation inhaler USE 2 PUFFS EVERY 6 HOURS FOR SHORTNESS OF BREATH OR WHEEZING. 02/15/2023 Active Start: 04-27-2021 End: 05-11-2021 take 2.5 mg by inhalation every four hours as needed for wheezing 2.5 mg, Nebulization, Every 4 hours PRN, wheezing, Starting on Mon04/27/21 at 1718 Start: 02-08-2021 take 2 puff(s) by in halation every six hours for wheezing Ventolin HFA 108 (90 Base) MCG/ACT Inhalation Aerosol Solution USE 2 PUFFS EVERY 6 HOURS FOR SHORTNESS OF BREATH OR WHEEZING. Quantity: 1 Refills: 11 Ordered: 29-Mar-2022 Phyllis Mae MD Start : 08-Feb-2021 Active Start: 01-14-2020 take 2 puff(s) by in halation every four hours as needed albuterol (Ventolin HFA) 90 mcg/actuation inhaler Inhale 2 (two) puffs every 4 (four) hours as needed . 18 Inhaler 11 01/14/2020 Active Start: 01-14-2020 End: 04-29-2021 take 2 puff(s) by inhalation every four hours as needed albuterol (Ventolin HFA) 90 mcg/actuation inhaler Inhale 2 (two) puffs every 4 (four) hours as needed . 18 Inhaler 11 01/14/2020 04/20/2020 Discontinued (Duplicate order (Suppress CancelRx Message to Pharmacy)) Start: 01-22-2019 End: 04-20-2020 take 2.5 mg by inhalation every four hours as needed for wheezing and chronic obstructive pulmonary disease and chronic obstructive pulmonary disease albuterol (PROVENTIL) 2.5 mg /3 mL (0.083 %) nebulizer solution Indications: Chronic obstructive pulmonary disease, unspecified COPD type (HCC) Take 3 mL (2.5 mg total) by nebulization every 4 (four) hours as needed for wheezing . 120 mL 11 01/14/2020 04/20/2020 Discontinued (Duplicate order (Suppress CancelRx Message to Pharmacy)) Start: 11-12-2018 take 2 puff(s) by in halation every four hours as needed VENTOLIN HFA 90 mcg/actuation inhaler INHALE 2 PUFFS EVERY 4 HOURS NEEDED 18 Inhaler 11 11/12/2018 Active Start: 11-12-2018 End: 01-14-2020 take 2 puff(s) by inhalation every four hours as needed VENTOLIN HFA 90 mcg/actuation inhaler INHALE 2 PUFFS EVERY 4 HOURS NEEDED 18 Inhaler 11 11/12/2018 01/14/2020 Discontinued (Reorder (Suppress CancelRx Message to Pharmacy)) End: 01-22-2019 take 2.5 mg by inhalation every four hours as needed for wheezing albuterol (PROVENTIL) 2.5 mg /3 mL (0.083 %) nebulizer solution Take 2.5 mg by nebulization every 4 (four) hours as needed for wheezing. 0 01/22/2019 Discontinued (Reorder (Suppress CancelRx Message to Pharmacy)) Albuterol Sulfat e (2.5 MG/3ML) 0.083% Inhalation Nebulization Solution USE 1 UNIT DOSE IN NEBULIZER EVERY 6 HOURS NEEDED. Quantity: 150 Refills: 3 Ordered: 31-Dec-2021 Phyllis Mae MD Active take 3 mL by inhalat ion every four hours as needed ALBUTEROL SUL 2.5 MG/3 ML SOLN ; 3 milliliter(s) inhaled every 4 hours, As Needed Quantity: 0 Refills: 11 Ordered: 10-Jun-2020 Anya Bustillos Generic Substitution Allowed Comments: Source=[place], Medication=ALBUTEROL SUL 2.5 MG/3 ML SOLN, [id number], OriginatingProvider=NANCY LOLA, Duration=30, [id number], Refills=11, Date Last Modified/Filled=14-May-2020 take 2 puff(s) by in halation every four hours as needed ALBUTEROL HFA 90 MCG INHALER ; 2 puff(s) inhaled every 4 hours, As Needed Quantity: 0 Refills: 11 Ordered: 10-Jun-2020 Anya Bustillos Generic Substitution Allowed Comments: Source=[place], Medication=ALBUTEROL HFA 90 MCG INHALER, [facility]Source[facility]/pharmacy #[id number], OriginatingProvider=LOLA CRUZ, Duration=16, Quantity=6.7, Refills=11, Date Last Modified/Filled=15-Apr-2020 take 1 puff(s) by in halation every four hours Albuterol Sulfate HFA 108 (90 Base) MCG/ACT Inhalation Aerosol Solution INHALE 1 PUFFS Every 4 hours Quantity: 0 Refills: 11 Ordered: 03-Sep-2019 DO Active take 1 puff(s) by in halation every four hours Albuterol Sulfate HFA 108 (90 Base) MCG/ACT Inhalation Aerosol Solution INHALE 1 PUFFS Every 4 hours Refills: 11 DO Active 6.7 GM Inhaler albuterol 90 mcg /actuation inhaler Inhale 2 puffs as needed for wheezing. Active Comment on above: Source=[place], Medication=ALBUTEROL HFA 90 MCG INHALER, [facility]Source[facility]/pharmacy #[id number], OriginatingProvider=NANCY LOLA, Duration=16, Quantity=6.7, Refills=11, Date Last Modified/Filled=15-Apr-2020 Source=[facility], Medication=ALBUTEROL SUL 2.5 MG/3 ML SOLN, Orig[facility]Source[facility]/pharmacy #[id number], OriginatingProvider=LOLA CRUZ, Duration=30, [id number], Refills=11, Date Last Modified/Filled=14-May-2020 albuterol 90 mcg/actuation inhaler (13 sources) take 2 puff(s) by inhalation every four hours as needed for wheezing albuterol 90 mcg/actuation inhaler Inhale 2 puffs every 4 (four) hours as needed for wheezing . 0 Active Albuterol Sulfate 2.5 mg /3 mL (0.083 %) solution for nebulization (1 source) Star t: 03-30 25 Albuterol Sulfate 2.5 mg /3 mL (0.083 %) solution for nebulization Active mg INHALATION As Directed April 17, 2025 12:00am amLODIPine 2.5 mg oral tablet (20 sources) Dihydropyridine Calcium Channel Danny Star t: 02-27 End: 02-28 21 take 2 tablets by mouth once daily amLODIPine (NORVASC) 2.5 MG tablet Take 2 (two) tablets (5 mg total) by mouth daily for 14 days . 28 tablet 0 03/12/2021 Active Start: 08-17-2020 take 1 tablet by silviano once daily amLODIPine Besylate 5 MG Oral Tablet TAKE 1 TABLET DAILY. Quantity: 30 Refills: 11 Phyllis Mae MD Start : 17-Aug-2020 Active Start: 10-24-2019 End: 10-23-2020 take 1 tablet by mouth once daily amLODIPine (NORVASC) 2.5 MG tablet Take 1 (one) tablet (2.5 mg total) by mouth daily . 30 tablet 11 10/24/2019 04/20/2020 Discontinued (Duplicate order (Suppress CancelRx Message to Pharmacy)) End: 04-28-2021 take 2 tablets by mouth once daily amLODIPine (NORVASC) 5 MG tablet Take 10 mg by mouth daily . 0 04/28/2021 Discontinued (Stop Taking at Discharge) Comment on above: Source=[facility], Medication=AMLODIPIN E BESYLATE 2.5 MG TAB, [facility] #[id number], OriginatingProvider=AQUILES HERRERA, Duration=90, Quantity=90, Refills=11, Date Last Modified/Filled=15-Nov-2019 aspirin 81 mg delayed release oral tablet (20 sources) Platelet Aggregation Inhibitor, Nonsteroidal Anti-inflammatory Drug Start: 06-19-2 025 take 1 tablet by mouth once daily Aspirin (Adult Aspirin Regimen) 81 mg tablet,delayed release (DR/EC) Active 81 mg PO daily April 17, 2025 12:00am Start: 06-16-2020 End: 09-09-2024 take 1 tablet by mouth once daily aspirin 81 MG EC tablet Take 1 (one) tablet (81 mg total) by mouth daily . 90 tablet 3 09/09/2024 Active atorvastatin 20 mg oral tablet (20 sources) HMG-CoA Reductase Inhibitor Start: 04-17-2025 take 1 tablet by mouth once daily Atorvastatin 20 mg tablet Active 20 mg PO daily April 17, 2025 12:00am Start: 05-28-2024 take 2 tablets by mo ut once daily atorvastatin (Lipitor) 20 mg tablet Indications: Hyperlipidemia, unspecified hyperlipidemia type Take 2 tablets (40 mg) by mouth once daily. 90 tablet 3 05/28/2024 Active Start: 04-13-2021 End: 09-09-2024 take 1 tablet by mouth once daily atorvastatin (Lipitor) 20 mg tablet Indications: Hyperlipidemia, unspecified hyperlipidemia type TAKE 1 TABLET BY MOUTH EVERY DAY 90 tablet 10/07/2024 Active Start: 04-13-2021 Atorvastatin C alcium 10 MG Oral Tablet Quantity: 30 Refills: 0 Ordered: 13-Apr-2021 DO Start : 13-Apr-2021 Active Start: 04-12-2021 End: 06-02-2022 take 1 tablet by mouth once daily atorvastatin (LIPITOR) 10 MG tablet Take 1 (one) tablet (10 mg total) by mouth nightly . 30 tablet 0 04/12/2021 06/02/2022 Discontinued (Formulary change) benzonatate 100 mg oral capsule (20 sources) Non-narcotic Antitussive Start: 06-03-2019 End: 06-13-2019 take 1 capsule by mouth three times daily as needed for cough benzonatate (TESSALON) 100 MG capsule Take 1 (one) capsule (100 mg total) by mouth 3 (three) times a day as needed for cough . 30 capsule 0 06/03/2019 06/13/2019 Active take 1 capsule by mo uth three times daily as needed for cough benzonatate (TESSALON) 200 MG capsule Ta ke 200 mg by mouth 3 (three) times a day as needed for cough . 0 Active betamethasone 0.5 mg/ml / clotrimazole 10 mg/ml topical cream (20 sources) Azole Antifungal, Corticosteroid Start: 07-12-2021 clotrimazole-betamethasone (Lotrisone) cream Apply 1 Application topically 2 times a day. 07/12/2021 Active Start: 07-12-2021 Clotrimazole-B etamethasone 1-0.05 % External Cream APPLY 1 APPLICATION TO AFFECTED AREA TWICE DAILY NEEDED FOR RASH Quantity: 1 Refills: 5 Ordered: 17-May-2022 Phyllis Mae MD Start : 12-Jul-2021 Active bisacodyl 10 mg rectal suppository (12 sources) Stimulant Laxative take 10 mg rectal route once daily as needed for constipation bisacodyL (DULCOLAX) 10 mg suppository Insert 10 mg into the rectum nightly as needed for constipation If no results from Milk of Magnesia. . 0 Active blood-glucose meter kit (20 sources) Start: 12-19-19 blood-glucose meter kit 1 each by Other route Use as instructed to check BG 2x daily. DX code E11.65 . 1 each 12/19/2023 Active Start: 12-19-2023 blood-glucose meter kit 1 each by Other route Use as instructed to check BG 2x daily. DX code E11.65 . 1 each 0 12/19/2023 Active Start: 08-03-2021 End: 08-03-2022 blood-glucose meter kit Martha cations: Type 2 diabetes mellitus with stage 3b chronic kidney disease, with long-term current use of insulin (HCC) Use as instructed . 1 each 0 08/03/2021 08/03/2022 Active End: 12-19-2023 blood-glucose meter kit 1 ea ch by Other route Use as instructed to check BG 2x daily. DX code E11.65 . 0 12/19/2023 Discontinued (Reorder (Suppress CancelRx Message to Pharmacy)) blood-glucose meter Misc (20 sources) Start: 09-09-2024 blood-glucose meter Misc Indications: Type 2 diabetes mellitus with stage 3b chronic kidney disease, with long-term current use of insulin (HCC) Use to check blood sugar as needed to calibrate CGM . 1 each 09/09/2024 Active Start: 12-27-2019 End: 04-06-2021 blood-glucose meter [facility] [place] Ind ications: IDDM (insulin dependent diabetes mellitus) Accu-chek Elli plus meter. Use as directed 4 times daily. . 1 each 0 12/27/2019 04/06/2021 Discontinued Start: 12-27-2019 blood-glucose meter [facility] [place] Indications: IDDM (insulin dependent diabetes mellitus) Accu-chek Leli plus meter. Use as directed 4 times daily. . 1 each 0 12/27/2019 Active Start: 12-27-2019 blood-glucose meter [facility] [place] Indications: IDDM (insulin dependent diabetes mellitus) (HCC) Accu-chek Elli plus meter. Use as directed 4 times daily. . 1 each 0 12/27/2019 Active blood-glucose meter, wireles s Kit (20 sources) blood-glucose me ter, wireless Kit by Miscellaneous route Use to check BG 2x daily. DXc ode E11.76 . Active blood-glucose me ter, wireless Kit by Miscellaneous route Use to check BG 2x daily. DXc ode E11.76 . 0 Active blood-glucose meter,continuo us (FreeStyle Hung 3 [place]) [facility] [place] (2 sources) Start: 11-25-2024 blood-glucose meter,continuous (FreeStyle Hung 3 [place]) [facility] [place] Indications: Type 2 diabetes mellitus with stage 3b chronic kidney disease, with long-term current use of insulin (HCC) Use to monitor BG . 1 each 11/25/2024 Active blood-glucose sensor (Dexcom G7 Sensor) Jhon (11 sources) Start: 09-09-2024 End: 11-25-2024 blood-glucose sensor (Dexcom G7 Sensor) Jhon Indications: Type 2 diabetes mellitus with stage 3b chronic kidney disease, with long-term current use of insulin (HCC) Use to check blood sugar four times daily . 3 each 09/09/2024 11/25/2024 Discontinued Start: 09-09-2024 blood-glucose sensor (Dexcom G7 Sensor) Jhon Indications: Type 2 diabetes mellitus with stage 3b chronic kidney disease, with long-term current use of insulin (HCC) Use to check blood sugar four times daily . 3 each 09/09/2024 Active blood-glucose sensor (FreeStyle Hung 3 Sensor) Jhon (2 sources) Start: 11-25-2024 blood-glucose sensor (FreeStyle Hung 3 Sensor) Jhon Indications: Type 2 diabetes mellitus with stage 3b chronic kidney disease, with long-term current use of insulin (HCC) Use as directed to monitor BG. Change sensor every 10 days. . 3 each 11/25/2024 Active Blood-Glucose,Receive r,Cont (Freestyle Hung 3 [place]) misc (1 source) Start: 04-17-2025 Blood-Glucose,Rece iver,Cont (Freestyle Hung 3 [place]) [facility] [place] Active NMA .ROUTE .MEDSUPPLY April 17, 2025 12:00am As directed calcium carbonate 1250 mg / cholecalciferol 200 unt oral tablet (20 sources) Vitamin D Start: 04-28-2021 End: 12-05-2024 take 1 tablet by mouth twice daily calcium carbonate-vitamin D3 500 mg-5 mcg (200 unit) tablet Indications: Healthcare maintenance Take 1 tablet by mouth 2 times a day. 60 tablet 11 12/05/2024 Active cephalexin 500 mg oral capsule (7 sources) Cephalosporin Antibacterial Start: 04-28-2021 End: 05-18-2021 take 1 capsule by mouth twice daily cephALEXin (KEFLEX) 500 MG capsule Take 1 (one) capsule (500 mg total) by mouth 2 (two) times a day for 7 days . 14 capsule 0 05/11/2021 05/18/2021 Active Start: 06-10-2020 End: 11-23-2020 cephALEXin (KEFLEX) capsule 250 mg Start: 06-10-2020 End: 06-17-2020 take 1 capsule by mouth four times daily cephALEXin (KEFLEX) 500 MG capsule Take 1 (one) capsule (500 mg total) by mouth 4 (four) times a day for 7 days . 28 capsule 0 06/10/2020 06/17/2020 Active cilostazol 50 mg oral tablet (20 sources) Phosphodiesterase 3 Inhibitor Start: 11-22-2017 End: 08-21-2019 take 1 tablet by mouth twice daily cilostazol (PLETAL) 50 MG tablet TAKE 1 (ONE) TABLET (50 MG TOTAL) BY MOUTH 2 (TWO) TIMES A DAY. 180 tablet 3 08/21/2018 08/21/2019 Active clindamycin 300 mg oral capsule (1 source) Lincosamide Antibacterial Start: 11-09-2022 End: 11-18-2022 take 1 capsule by mouth every six hours clindamycin 300 mg oral capsule ; 1 cap(s) orally every 6 hours Quantity: 40 Refills: 0 Ordered: 09-Nov-2022 Christopher Galindo Start: 09-Nov-2022 End: 18-Nov-2022 Generic Substitution Allowed Comments: Finish all this medication unless otherwise directed by prescriber.Medica tion should be taken with plenty of water. Comment on above: Finish all this medi cation unless otherwise directed by prescriber.Medication should be taken with plenty of water. clopidogrel 75 mg oral tablet (20 sources) P2Y12 Platelet Inhibitor Start: 11-27-2019 End: 09-04-2025 take 1 tablet by mouth once daily Clopidogrel 75 mg tablet Active 75 mg PO daily April 17, 2025 12:00am Comment on above: Source=Alexx, Medication=CLOPIDOGREL 75 MG TABLET, [facility] #[id number], OriginatingProvider=PHYLLIS MAE, Duration=90, Quantity=90, Refills=3, Date Last Modified/Filled=16-Nov-2019 diclofenac sodium 0.01 mg/mg topical gel (20 sources) Nonsteroidal Anti-inflammatory Drug Start: 04-17-2025 Diclofenac Sodium (Arthritis Pain (Diclofenac)) 1 % gel Active 2 g TOPICAL EVERY 6 HOURS as needed April 17, 2025 12:00am apply to single elbow, wrist or hand; for hand includes palm/fingers/back of hand Start: 03-07-2023 diclofenac sod ium (Voltaren) 1 % gel gel Indications: Rib pain Apply 1 Application topically 4 times a day as needed (pain). 45 g 1 03/07/2023 Active Start: 06-01-2021 diclofenac sod ium (Voltaren Arthritis Pain) 1 % Gel Apply topically every 6 (six) hours as needed . 06/01/2021 Active Start: 06-01-2021 End: 02-27-2024 diclofenac sodium 1 % kit Ap ply 1 Application topically once daily. 06/01/2021 02/27/2024 Discontinued (Duplicate order) Start: 06-01-2021 Diclofenac Sod ium 1 % External Gel APPLY 2GM TO SKIN UP TO 4 TIMES DAILY NEEDED Quantity: 1 Refills: 5 Ordered: 28-Dec-2021 Phyllis Mae MD Start : 01-Jun-2021 Active docusate sodium 50 mg / sennosides, jail 8.6 mg oral tablet (6 sources) Start: 03-12-2021 End: 04-11-2021 take 1 tablet by mouth once daily senna-docusate (SENNA-S) 8.6-50 mg Take 1 (one) tablet by mouth nightly . 30 tablet 0 03/12/2021 04/11/2021 Active ergocalciferol 1.25 mg oral capsule (1 source) Provitamin D2 Compound Start: 04-17-2025 Ergocalciferol (Vitamin D2) 1,250 mcg (50,000 unit) capsule Active 1250 ug PO EVERY MONTH April 17, 2025 12:00am famotidine 20 mg oral tablet (20 sources) Histamine-2 Receptor Antagonist Start: 04-17-2025 take 1 tablet by mouth twice daily Famotidine 20 mg tablet Active 20 mg PO TWICE A DAY April 17, 2025 12:00am Start: 03-03-2022 End: 03-07-2023 take 1 tablet by mouth twice daily famotidine (Pepcid) 20 mg tablet Indications: Gastro-esophageal reflux disease without esophagitis TAKE 1 TABLET BY MOUTH TWICE A DAY 180 tablet 3 05/09/2024 Active Start: 03-03-2022 End: 04-20-2020 take 1 tablet by mouth twice daily famotidine (PEPCID) 20 MG tablet Take 20 mg by mouth 2 (two) times a day . 0 03/03/2022 Active End: 03-07-2023 take 1 tablet by mouth twice daily famotidine (Pepcid) 20 mg tablet Take 1 tablet (20 mg) by mouth 2 times a day. 0 03/07/2023 Discontinued (Duplicate order) Comment on above: Source=Surescripts, Medication=FAMOTIDIN E 20 MG TABLET, [facility]Source[facility]/pharmacy #[id number], OriginatingProvider=PHYLLIS MAE, Duration=90, Qclwzpzh=463, Refills=11, Date Last Modified/Filled=02-Apr-2020 fenofibrate 145 mg oral tablet (20 sources) Peroxisome Proliferator Receptor alpha Agonist Star t: 06-30 End: 08-30 take 1 tablet by mouth once daily Fenofibrate Nanocrystallized 145 mg tablet Active 145 mg PO daily April 17, 2025 12:00am Start: 10-04-2021 End: 08-22-2023 take 1 tablet by mouth once daily fenofibrate (Tricor) 54 mg tablet Indications: Pure hyperglyceridemia TAKE 1 TABLET BY MOUTH EVERY DAY 90 tablet 3 03/06/2023 03/07/2023 Discontinued (Duplicate order) Fluticasone Propion-Salmeterol (20 sources) Corticosteroid, beta2-Adrenergic Agonist Start: 04-17-2025 Fluticasone Propion-Salmeterol 500-50 mcg/dose blister with device Active INHALATION April 17, 2025 12:00am Start: 03-18-2024 take 1 puff(s) by mo uth twice daily fluticasone propion-salmeteroL (Advair Diskus) 500-50 mcg/dose diskus inhaler Indications: Chronic obstructive pulmonary disease, unspecified INHALE 1 PUFF BY MOUTH TWICE A DAY 60 each 03/18/2024 Active Start: 03-06-2023 take 1 puff(s) by mo uth twice daily Wixela Inhub 500-50 mcg/dose diskus inhaler Indications: Chronic obstructive pulmonary disease, unspecified (Multi) TAKE 1 PUFF BY MOUTH TWICE A DAY 60 each 11 03/06/2023 Active Start: 01-14-2020 End: 04-20-2020 take 1 puff(s) by inhalation twice daily fluticasone propion-salmeteroL (Advair Diskus) 500-50 mcg/dose diskus inhaler One puff twice daily . 3 each 3 01/14/2020 04/20/2020 Discontinued (Duplicate order (Suppress CancelRx Message to Pharmacy)) Start: 01-14-2020 take 1 puff(s) by in halation twice daily fluticasone propion-salmeteroL (Advair Diskus) 500-50 mcg/dose diskus inhaler One puff twice daily . 3 each 3 01/14/2020 Active Start: 11-26-2018 End: 11-29-2019 ADVAIR DISKUS 500-50 mcg/dos e diskus inhaler INHALE TWICE A DAY 1 Inhaler 11 11/26/2018 11/29/2019 Discontinued take 1 puff(s) by in halation twice daily fluticasone propion-salmeteroL (ADVAIR DISKUS) 500-50 mcg/dose diskus inhaler Inhale 1 (one) puff 2 (two) times a day . Active take 1 puff(s) by in halation twice daily fluticasone propion-salmeteroL (ADVAIR DISKUS) 500-50 mcg/dose diskus inhaler Inhale 1 (one) puff 2 (two) times a day . 0 Active End: 03-07-2023 take 1 puff(s) by inhalation twice daily Wixela Inhub 500-50 mcg/dose diskus inhaler Inhale 1 puff 2 times a day. 0 03/07/2023 Discontinued (Duplicate order) End: 11-25-2018 take 1 puff(s) by inhalation twice daily fluticasone-salmeterol (ADVAIR DISKUS) 500-50 mcg/dose diskus inhaler Inhale 1 puff 2 (two) times a day. 0 11/25/2018 Discontinued (Reorder (Suppress CancelRx Message to Pharmacy)) take 1 puff(s) by in halation twice daily fluticasone propion-salmeteroL (ADVAIR DISKUS) 500-50 mcg/dose diskus inhaler Inhale 1 puff 2 (two) times a day . 0 Active take 1 puff(s) by in halation twice daily fluticasone propion-salmeteroL (Wixela Inhub) 500-50 mcg/dose diskus inhaler Inhale 1 puff 2 (two) times a day . 0 Active fluticasone-salm eterol (ADVAIR DISKUS) 500-50 mcg/dose diskus inhaler Inhale 1 puff 2 (two) times a day. Active Comment on above: Source=Surescripts, Medication=WIXELA 500-50 INHUB, [facility]Source[facility]/pharmacy #[id number], OriginatingProvider=LOLA CRUZ, Duration=90, Cvifkwqa=369, Refills=3, Date Last Modified/Filled=28-May-2020 FreeStyle Hung 3 [place] misc (1 source) Start: 5 FreeStyle Hung 3 [place] misc 1 Device. 11/25/2024 Active 3 ml insulin degludec 100 unt/ml pen injector (12 sources) Insulin Analog Start: insulin degludec (Tresiba FlexTouch U-100) 100 unit/mL (3 mL) InPn Indications: Type 2 diabetes mellitus with stage 3b chronic kidney disease, with long-term current use of insulin (HCC) Inject 16 (sixteen) Units under the skin 2 (two) times a day . 30 mL 3 11/05/2024 Active Start: 11-05-2024 End: 12-05-2024 insulin degludec (Tresiba Fl exTouch U-100) 100 unit/mL (3 mL) InPn INJECT 16 (SIXTEEN) UNITS Q AM . 15 mL 11 11/07/2024 Active 3 ml insulin glargine 100 unt/ml pen injector (20 sources) Insulin Analog Start: 04-17-2025 Insulin Glargi ne (Lantus Solostar U-100 Insulin) 100 unit/mL (3 mL) insulin pen Active 5 U SC EVERY MORNING April 17, 2025 12:00am Start: 10-08-2024 Lantus Solosta r U-100 Insulin 100 unit/mL (3 mL) InPn Indications: Type 2 diabetes mellitus with stage 3b chronic kidney disease, with long-term current use of insulin (HCC) INJECT 16 (SIXTEEN) UNITS UNDER THE SKIN 2 (TWO) TIMES A DAY . 15 mL 11 10/08/2024 Active Start: 09-12-2023 End: 11-05-2024 inject 5 [IU] by subcutaneous injection once daily in the morning Lantus Solostar U-100 Insulin 100 unit/mL (3 mL) pen Indications: Type 2 diabetes mellitus with hyperglycemia, with long-term current use of insulin Inject 5 Units under the skin once daily in the morning. Take as directed per insulin instructions. 3 mL 11 11/05/2024 Active Start: 05-15-2023 End: 10-18-2023 Lantus Solostar U-100 Insuli n 100 unit/mL (3 mL) InPn Indications: Type 2 diabetes mellitus with stage 3b chronic kidney disease, with long-term current use of insulin (HCC) Inject 16 (sixteen) Units under the skin 2 (two) times a day . 15 mL 11 05/15/2023 10/18/2023 Discontinued (Reorder (Suppress CancelRx Message to Pharmacy)) Start: 08-03-2021 End: 05-15-2023 Lantus Solostar U-100 Insuli n 100 unit/mL (3 mL) InPn INJECT 16 (SIXTEEN) UNITS UNDER THE SKIN NIGHTLY . 15 mL 11 09/13/2022 05/15/2023 Discontinued (Reorder (Suppress CancelRx Message to Pharmacy)) Start: 04-16-2021 End: 08-03-2021 insulin glargine (LANTUS) 10 0 unit/mL injection Inject 16 (sixteen) Units under the skin nightly . 4.8 mL 0 04/16/2021 08/03/2021 Discontinued Start: 12-27-2019 End: 04-20-2020 inject 10 [IU] by subcutaneous injection once daily Lantus Solostar U-100 Insulin 100 unit/mL (3 mL) InPn Inject 10 (ten) Units under the skin nightly . 15 mL 11 12/27/2019 04/20/2020 Discontinued (Duplicate order (Suppress CancelRx Message to Pharmacy)) Start: 09-24-2016 End: 12-27-2019 LANTUS SOLOSTAR 100 unit/mL (3 mL) InPn INJECT 30 UNITS SUBCUTANEOUSLY TWICE A DAY 09/24/2016 12/27/2019 Discontinued (Reorder (Suppress CancelRx Message to Pharmacy)) Start: 09-24-2016 LANTUS SOLOSTA R 100 unit/mL (3 mL) InPn INJECT 30 UNITS SUBCUTANEOUSLY TWICE A DAY 09/24/2016 Active Start: 09-24-2016 LANTUS SOLOSTA R 100 unit/mL (3 mL) InPn INJECT 30 UNITS SUBCUTANEOUSLY TWICE A DAY 09/24/2016 Active inject 6 [IU] by sub cutaneous injection once daily Lantus 100 units/mL subcutaneous solution ; 6 unit(s) subcutaneous once a day Quantity: 0 Refills: 0 Ordered: 04-Jan-2021 Hauenstein, Eboni Generic Substitution Allowed inject 30 [IU] by barrera bcutaneous injection twice daily insulin glargine (LANTUS) 100 unit/mL injection Inject 30 Units under the skin 2 (two) times a day . 0 Active 3 ml insulin aspart, human 100 unt/ml pen injector (20 sources) Insulin Analog Start: 04-17-2025 Insulin Aspart U-100 100 unit/mL (3 mL) insulin pen Active SC April 17, 2025 12:00am Start: 09-10-2024 inject 5 [IU] by sub cutaneous injection three times daily before mealtime NovoLOG Flexpen U-100 Insulin 100 unit/mL (3 mL) pen Inject 5 Units under the skin 3 times a day before meals. 09/10/2024 Active Start: 09-09-2024 inject 5 [IU] by sub cutaneous injection once daily at mealtime insulin aspart U-100 (NovoLOG Flexpen U-100 Insulin) 100 unit/mL (3 mL) InPn Indications: Type 2 diabetes mellitus with stage 3b chronic kidney disease, with long-term current use of insulin (HCC) Take 5 units subcutaneous every day at meals, up to three times daily. Dx code E11.65. . 15 mL 1 09/09/2024 Active Start: 12-20-2023 End: 09-09-2024 insulin aspart U-100 (NovoLO G Flexpen U-100 Insulin) 100 unit/mL (3 mL) InPn Indications: Type 2 diabetes mellitus with stage 3b chronic kidney disease, with long-term current use of insulin (HCC) Inject sliding scale at breakfast and supper up to 8 units daily total. Dx code E11.65. Fill for NOVOLOG per insurance. . 15 mL 1 02/21/2024 09/09/2024 Discontinued (Reorder (Suppress CancelRx Message to Pharmacy)) Start: 12-28-2019 End: 04-20-2020 insulin aspart U-100 (NovoLO G Flexpen U-100 Insulin) 100 unit/mL (3 mL) InPn Use as directed approx 15 units per day . 15 mL 6 12/28/2019 04/20/2020 Discontinued (Duplicate order (Suppress CancelRx Message to Pharmacy)) End: 04-28-2021 insulin aspart U-100 (NovoLO G) 100 unit/mL injection Inject under the skin 3 (three) times a day before meals . 0 04/28/2021 Discontinued (Stop Taking at Discharge) 24 hr isosorbide mononitrate 30 mg extended release oral tablet (20 sources) Nitrate Vasodilator Start: 06-19-2025 take 1 tablet by mouth once daily, then take 1 tablet by mouth every twenty-four hours Isosorbide Mononitrate 30 mg tablet extended release 24 hr Active 30 mg PO daily April 17, 2025 12:00am Start: 04-28-2021 End: 04-30-2021 take 60 mg by mouth once daily 60 mg, Oral, Daily, Fir st dose on Mon04/28/21 at 0900 Include a nitrate free period DO NOT CRUSH OR CHEW. Start: 04-13-2021 End: 09-04-2025 take 2 tablets by mouth once daily isosorbide mononitrate (IMDUR) 30 MG 24 hr tablet Take 2 (two) tablets (60 mg total) by mouth daily . 180 tablet 3 09/09/2024 09/04/2025 Active Start: 06-27-2020 Isosorbide Mon onitrate ER 30 MG Oral Tablet Extended Release 24 Hour Quantity: 90 Refills: 0 Ordered: 27-Jun-2020 DO Start : 27-Jun-2020 Active End: 04-20-2020 take 1 tablet by mouth once daily before mealtime isosorbide mononitrate ER (Imdur) 30 mg 24 hr tablet Take 1 tablet (30 mg) by mouth once daily in the morning. Take before meals. Active Comment on above: Source=Surescripts, Medication=ISOSORBIDE MONONIT ER 30 MG TB, [facility]/pharm[facility] #[id number], OriginatingProvider=ROCHELLE CHEUNG, Duration=90, Quantity=90, Refills=1, Date Last Modified/Filled=01-Apr-2020 Lantus Solostar 100 Unit/Ml (3 Ml) Subcutaneous Insulin Pen (4 sources) Star t: 08-31 LANTUS SOLOSTAR 100 unit/mL (3 mL) InPn INJECT 30 UNITS SUBCUTANEOUSLY TWICE A DAY 11 09/24/2016 Active loperamide hydrochloride 2 mg oral capsule (1 source) Opioid Agonist Star t: 03-30 take 1 capsule by mouth twice daily as needed Loperamide 2 mg capsule Active 2 mg PO TWICE A DAY as needed April 17, 2025 12:00am loratadine 10 mg oral tablet (20 sources) Star t: 03-30 take 1 tablet by mouth once daily Loratadine (Claritin) 10 mg tablet Active 10 mg PO daily April 17, 2025 12:00am Start: 04-27-2021 End: 05-11-2021 take 10 mg by mouth once daily as needed 10 mg, Oral, Daily PRN, allergies, Starting on Mon04/27/21 at 1718 lovastatin 10 mg oral tablet (20 sources) HMG-CoA Reductase Inhibitor Start: 09-12-2023 End: 02-27-2024 take 1 tablet by mouth once daily lovastatin (MEVACOR) 10 MG tablet Take 1 (one) tablet (10 mg total) by mouth daily . 12/11/2023 Active Start: 11-22-2017 End: 06-02-2022 take 1 tablet by mouth once lovastatin (MEVACOR) 10 MG tablet Take 1 (one) tablet (10 mg total) by mouth nightly. 90 tablet 3 04/13/2018 Active Comment on above: Source=Surescripts, Medication=LOVASTATIN 10 MG TABLET, [facility]/pharmacy #[id number], OriginatingProvider=PHYLLIS MAE, Duration=90, Quantity=90, Refills=11, Date Last Modified/Filled=07-Nov-2019 magnesium oxide 400 mg oral tablet (16 sources) magnesium oxide 400 mg magnesium Tab Take by mouth 2 (two) times a day . 0 Active rtgbkxzi-cjtw-ZC-sheldon cium-mins 9 mg iron-400 mcg Tab (20 sources) bfvmdykg-ctsz-PP -sheldon cium-mins 9 mg iron-400 mcg Tab Take 1 (one) tablet by mouth daily . Active kmkiqfdz-lrcw-EZ -calcium-mins 9 mg iron-400 mcg Tab Take 1 (one) tablet by mouth daily . 0 Active gmsuaowa-vjgi-EX -calcium-mins 9 mg iron-400 mcg Tab Take 1 tablet by mouth daily . 0 Active multivitamin with minerals (urbmskerosyo-gtxh-cgyup acid) tablet (9 sources) Start: 12-05-2024 take 1 tablet by mouth once daily multivitamin with minerals (pfdlhcxrlqjw-zsfm-gdbhm acid) tablet Indications: Healthcare maintenance Take 1 tablet by mouth once daily. 30 tablet 11 12/05/2024 Active End: 12-05-2024 take 1 tablet by mouth once daily multivitamin with minerals (lddqjgkxublk-oaiy-dqkud acid) tablet Take 1 tablet by mouth once daily. 12/05/2024 Discontinued (Reorder) take 1 tablet by silviano th once daily multivitamin with minerals (wntsafpldesm-gsfs-ixwcc acid) tablet Take 1 tablet by mouth once daily. Active take 1 tablet by silviano th once daily multivitamin with minerals (hsnrgqepqaqy-lakr-yauld acid) tablet Take 1 tablet by mouth once daily. 0 Active Multivitamin With Minerals Tablet (12 sources) take 1 tablet by mouth once daily multivitamin with minerals tablet Take 1 tablet by mouth daily. Active Gmobepkhbhry-Rwd-Etoy-Fa- Vit K ([place]) 18 mg iron-400 mcg-25 mcg tablet (1 source) Start: 04-17-2025 take 1 tablet by mouth once daily Yuzmhzbxmpla-Een-Bprm-Fa-V it K (Central-[place]) 18 mg iron-400 mcg-25 mcg tablet Active 1 {tbl} PO daily April 17, 2025 12:00am nebulizer and compressor device (6 sources) Start: 12-20-2023 nebulizer and compressor device Indications: Centrilobular emphysema (Multi) 1 1e11 Vector Genomes every 4 hours if needed (SOB). 1 each 12/20/2023 Active Start: 12-14-2023 nebulizer and compressor device Indications: Centrilobular emphysema (CMS/HCC) 1 1e11 Vector Genomes every 4 hours if needed (SOB). 1 each 0 12/14/2023 Active nebulizers (VixOne Nebulizer-Adult Mask) misc (6 sources) Start: 12-20-2023 nebulizers (Vi xOne Nebulizer-Adult Mask) misc Indications: Centrilobular emphysema (Multi) 1 1e11 Vector Genomes every 4 hours if needed (SOB). 1 each 11 12/20/2023 Active Start: 12-14-2023 nebulizers (Vi xOne Nebulizer-Adult Mask) misc Indications: Centrilobular emphysema (CMS/HCC) 1 1e11 Vector Genomes every 4 hours if needed (SOB). 1 each 11 12/14/2023 Active 24 hr nicotine 0.583 mg/hr transdermal system (16 sources) Cholinergic Nicotinic Agonist Start: 11-05-2024 End: 12-19-2024 apply 1 dose transdermal route every twenty-four hours nicotine (Nicoderm CQ) 14 mg/24 hr patch Indications: Smoker Place 1 patch over 24 hours on the skin once every 24 hours for 14 days. 14 patch 12/05/2024 12/19/2024 Active Start: 11-05-2024 End: 01-19-2025 apply 1 dose transdermal route every twenty-four hours nicotine (Nicoderm CQ) 7 mg/24 hr patch Indications: Smoker Place 1 patch over 24 hours on the skin once every 24 hours. To START AFTER FINISHING THE 2 WEEKS OF 14 MG /DAY. 45 patch 12/05/2024 01/19/2025 Active Start: 03-03-2023 End: 04-02-2023 apply 1 dose transdermal route once daily nicotine (Nicoderm CQ) 21 mg/[address] 1 patch on the skin once daily. 30 patch 03/03/2023 Active Start: 12-28-2020 apply 1 dose transde rmal route once daily Nicotine 14 MG/24HR Transdermal Patch 24 Hour APPLY 1 PATCH DAILY DIRECTED.X 2 WEEKS Quantity: 14 Refills: 0 Ordered: 28-Dec-2020 Phyllis Mae MD Start : 28-Dec-2020 Active Start: 12-28-2020 apply 1 dose transde rmal route once daily Nicotine 7 MG/24HR Transdermal Patch 24 Hour 1 PATCH DAILY X 4 WEEKS Quantity: 28 Refills: 0 Ordered: 28-Dec-2020 Phyllis Mae MD Start : 28-Dec-2020 Active TO START AFTER FINISHING THE 14 MG PATCH. nitroglycerin 0.4 mg sublingual tablet (20 sources) Nitrate Vasodilator Start: 12-18-2019 End: 06-02-2022 nitroGLYCERIN (NITROSTAT) 0.[address] 1 (one) tablet (0.4 mg total) under the tongue every 5 (five) minutes as needed for chest pain . 25 tablet 3 06/02/2022 Active Start: 12-18-2019 nitroGLYCERIN (NITROSTAT) 0.4 MG SL tablet Comment on above: Source=Surescripts, Medication=nitroglycerin 0.4 mg sublingual tablet, OriginatingSource=[facility] [id number], OriginatingProvider=, , Duration=7, Quantity=25, Refills=5, Date Last Modified/Filled=18-Dec-2019 pantoprazole 40 mg delayed release oral tablet (20 sources) Proton Pump Inhibitor Start : 04-13 End: 11-05 take 1 tablet by mouth once daily pantoprazole (PROTONIX) 40 MG tablet Take 1 (one) tablet (40 mg total) by mouth daily Start: 04/13/21. 30 tablet 04/13/2021 Active PARoxetine hydrochloride 20 mg oral tablet (20 sources) Serotonin Reuptake Inhibitor Start : 04-17 take 1 tablet by mouth once daily Paroxetine Hcl 20 mg tablet Active 20 mg PO daily April 17, 2025 12:00am Start: 11-08-2024 take 1 tablet by silviano th in the morning PARoxetine (Paxil) 20 mg tablet Take 1 tablet (20 mg) by mouth early in the morning.. 11/08/2024 Active Start: 05-28-2024 End: 11-05-2024 take 1 tablet by mouth once daily PARoxetine (Paxil) 20 mg tablet Indications: Major depressive disorder, single episode, in full remission (CMS-HCC) Take 1 tablet (20 mg) by mouth once daily. 90 tablet 3 05/28/2024 11/05/2024 Discontinued (Therapy completed) Start: 04-16-2020 End: 07-12-2023 take 1 tablet by mouth once daily PARoxetine (Paxil) 20 mg tablet Indications: Major depressive disorder, single episode, in full remission (CMS-HCC) TAKE 1 TABLET BY MOUTH EVERY DAY 90 tablet 3 05/15/2023 Active Comment on above: Source=Surescripts, Medication=PAROXETIN E HCL 20 MG TABLET, [id number], OriginatingProvider=PHYLLIS MAE, Duration=90, Quantity=90, Refills=4, Date Last Modified/Filled=16-Apr-2020 pregabalin 50 mg oral capsule (20 sources) Start : 03-13 take 1 capsule by mouth twice daily pregabalin (LYRICA) 50 MG capsule Indications: Claudication of lower extremity (HCC) Take 1 (one) capsule (50 mg total) by mouth 2 (two) times a day . 60 capsule 2 2021 Active End: 2021 pregabalin (LYRICA) 75 MG ca psule Take 50 mg by mouth 2 (two) times a day . 0 2021 Discontinued (Reorder (Suppress CancelRx Message to Pharmacy)) take 1 capsule by mo uth twice daily as needed for pain Lyrica 75 MG Oral Capsule 1 cap BID prn pain Quantity: 0 Refills: 0 Ordered: 03-Sep-2019 DO Active primidone 50 mg oral tablet (20 sources) Anti-epileptic Agent Start: 04-17-2025 take 1 tablet by mouth twice daily Primidone 50 mg tablet Active 50 mg PO TWICE A DAY April 17, 2025 12:00am Start: 05-14-2024 End: 11-05-2024 take 1 tablet by mouth twice daily primidone (Mysoline) 50 mg tablet Indications: Essential tremor Take 1 tablet (50 mg) by mouth 2 times a day. 180 tablet 3 11/05/2024 Active Start: 08-22-2023 End: 08-22-2023 take 1 tablet by mouth twice daily primidone (Mysoline) 50 mg tablet Indications: Essential tremor Take 1 tablet (50 mg) by mouth 2 times a day. 60 tablet 11 08/22/2023 Active Start: 08-13-2022 take 2 tablets by mo [facility] once daily primidone (MYSOLINE) 50 MG tablet Indications: Essential tremor Take 2 (two) tablets (100 mg total) by mouth nightly . 60 tablet 11 08/13/2022 Active Start: 05-19-2020 End: 06-16-2022 take 1 tablet by mouth at bedtime Primidone 50 MG Oral Tablet TAKE 1 TABLET AT BEDTIME. Quantity: 30 Refills: 11 Ordered: 20-Sep-2022 Phyllis Mae MD Start : 19-May-2020 Active Comment on above: Source=Surescripts, Medication=PRIMIDONE 50 MG TABLET, Orig[facility]Source[facility]/pharmacy #[id number], OriginatingProvider=PHYLLIS MAE, Duration=30, Quantity=30, Refills=11, Date Last Modified/Filled=19-May-2020 propranolol hydrochloride 20 mg oral tablet (20 sources) beta-Adrenergic Danny Start : 04-17 take 1 tablet by mouth twice daily Propranolol 20 mg tablet Active 20 mg PO TWICE A DAY April 17, 2025 12:00am Start: 02-27-2024 End: 02-26-2025 take 1 tablet by mouth twice daily propranolol (Inderal) 20 mg tablet Indications: Hypertension associated with type 2 diabetes mellitus (Multi) Take 1 tablet (20 mg) by mouth 2 times a day. 60 tablet 11 02/27/2024 02/26/2025 Active Start: 09-09-2022 take 1 capsule by [facility] every twenty-four hours Propranolol HCl ER 120 MG Oral Capsule Extended Release 24 Hour Quantity: 90 Refills: 0 Ordered: 09-Sep-2022 DO Start : 09-Sep-2022 Active Start: 06-02-2022 End: 09-09-2024 take 1 capsule by mouth once daily propranoloL (INDERAL LA) 120 MG 24 hr capsule Take 1 (one) capsule (120 mg total) by mouth daily . 90 capsule 3 09/09/2024 Active Start: 04-01-2019 End: 06-02-2022 take 1 capsule by mouth once daily propranolol (INDERAL LA) 80 MG 24 hr capsule Take 1 (one) capsule (80 mg total) by mouth daily . 30 capsule 11 04/01/2019 03/01/2020 Discontinued (Reorder (Suppress CancelRx Message to Pharmacy)) End: 04-01-2019 take 1 tablet by mouth twice daily propranolol (INDERAL) 20 MG tablet Take 20 mg by mouth 2 (two) times a day. 0 04/01/2019 Discontinued Comment on above: Source=Surescripts, Medication=PROPRANOLOL ER 80 MG CAPSULE, Orig[facility]Source[facility]/pharmacy #[id number], OriginatingProvider=AQUILES HERRERA, Duration=90, Quantity=90, Refills=3, Date Last Modified/Filled=28-May-2020 sildenafil 50 mg oral tablet (1 source) Phosphodiesterase 5 Inhibitor Start : 10-24 End: 10-23 sildenafil (Viagra) 50 MG tablet Take 1 (one) tablet (50 mg total) by mouth as needed for erectile dysfunction . 5 tablet 3 10/24/2019 10/23/2020 Active sodium bicarbonate 650 mg oral tablet (20 sources) Start : 04-17 take 2 tablets by mouth twice daily Sodium Bicarbonate 650 mg tablet Active 1300 mg PO TWICE A DAY April 17, 2025 12:00am Start: 12-11-2022 take 2 tablets by [facility] twice daily sodium bicarbonate 650 mg tablet Take 2 tablets (1,300 mg) by mouth 2 times a day. 12/11/2022 Active Start: 04-27-2021 End: 05-11-2021 take 1300 mg by mouth twice daily 1,300 mg, Oral, 2 times daily, First dose on Mon04/27/21 at 2100 Start: 04-27-2021 End: 04-27-2021 sodium bicarbonate 1 mEq/mL (8.4 %) injection 50 mEq End: 04-20-2020 take 1 tablet by mouth twice daily sodium bicarbonate 650 MG tablet Take 650 mg by mouth 2 (two) times a day. 0 04/20/2020 Discontinued (Duplicate order (Suppress CancelRx Message to Pharmacy)) take 2 tablets by mo ut in the morning, then take 2 tablets by mouth in the evening Sodium Bicarbonate 325 MG Oral Tablet TAKE 2 TABLET IN AM AND 2 IN THE PM Quantity: 0 Refills: 0 Ordered: 29-Mar-2022 DO Active spironolactone 25 mg oral tablet (14 sources) Aldosterone Antagonist take 1 tablet by mouth once daily SPIRONOLACTONE 25 MG TABLET ; 1 tab(s) orally once a day Quantity: 0 Refills: 1 Ordered: 10-Jun-2020 Anya Bustillos Generic Substitution Allowed Comments: Source=Surescripts, Medication=SPIRONOLACTONE 25 MG TABLET, Orig[facility]Source[facility]/pharmacy #[id number], OriginatingProvider=ROCHELLE CHEUNG, Duration=90, Quantity=90, Refills=1, Date Last Modified/Filled=07-Apr-2020 Comment on above: Source=Surescripts, Medication=SPIRONOLACTONE 25 MG TABLET, OriginatingSource=[facility]/pharmacy #[id number], OriginatingProvider=MARCELLA CHEUNGNA, Duration=90, Quantity=90, Refills=1, Date Last Modified/Filled=07-Apr-2020 sucralfate 1000 mg oral tablet (20 sources) Aluminum Complex Star t: 08-31 End: 05-18 take 1 tablet by mouth four times daily before mealtime sucralfate (CARAFATE) 1 gram tablet Take 1 (one) tablet (1 g total) by mouth 4 (four) times a day before meals and nightly . 09/20/2022 Active tamsulosin hydrochloride 0.4 mg oral capsule (20 sources) alpha-Adrenergic Danny Star t: 03-30 Tamsulosin 0.4 mg capsule Ac tive mg PO April 17, 2025 12:00am Start: 12-20-2023 take 1 capsule by mo [facility] once daily tamsulosin (Flomax) 0.4 mg 24 hr capsule Indications: Benign prostatic hyperplasia with lower urinary tract symptoms , Other obstructive and reflux uropathy TAKE 1 CAPSULE BY MOUTH EVERY DAY 90 capsule 3 12/20/2023 Active Start: 06-01-2021 take 1 tablet by [facility] once daily Tamsulosin HCl - 0.4 MG Oral Capsule 1 TAB DAILY Quantity: 90 Refills: 3 Ordered: 29-Mar-2022 Phyllis Mae MD Start : 01-Jun-2021 Active Start: 06-01-2021 End: 05-07-2021 take 1 tablet by mouth once daily Tamsulosin HCl - 0.4 MG Oral Capsule 1 TAB DAILY Quantity: 90 Refills: 3 Ordered: 01-Jun-2021 Phyllis Mae MD Start : 01-Jun-2021 Active Start: 05-07-2021 End: 06-06-2021 take 2 capsules by mouth at bedtime tamsulosin (FLOMAX) 0.4 mg capsule Take 2 (two) capsules (0.8 mg total) by mouth at bedtime . 60 capsule 0 05/07/2021 06/06/2021 Active take 1 capsule by [facility] once daily tamsulosin (FLOMAX) 0.4 mg capsule Take 1 (one) capsule (0.4 mg total) by mouth daily . Active tiotropium 0.018 mg inhalation powder (20 sources) Anticholinergic Start: 04-17-2025 take 1 capsule by inhalation once daily Tiotropium [place] (Spiriva With Handihaler) 18 mcg capsule, w/inhalation device Active 1 NMA INHALATION daily April 17, 2025 12:00am Start: 12-05-2024 take 1 capsule by in halation once daily tiotropium (Spiriva) 18 mcg inhalation capsule Indications: Chronic obstructive pulmonary disease, unspecified COPD type (Multi) Place 1 capsule (18 mcg) into inhaler and inhale once daily. 90 capsule 3 12/05/2024 Active Start: 12-03-2024 End: 02-06-2025 take 1 capsule by inhalation once daily tiotropium (Spiriva) 18 mcg inhalation capsule Indications: Chronic obstructive pulmonary disease, unspecified COPD type (Multi) inhale THE CONTENTS OF ONE CAPSULE IN THE HANDIHALER once daily AT THE SAME TIME EVERY DAY 90 capsule 3 12/03/2024 12/05/2024 Discontinued (Reorder) Start: 01-04-2024 End: 11-05-2024 take 1 capsule by inhalation once daily tiotropium (Spiriva with HandiHaler) 18 mcg inhalation capsule Indications: Chronic obstructive pulmonary disease, unspecified COPD type (Multi) Place 1 capsule (18 mcg) into inhaler and inhale once daily. AT THE SAME TIME EVERY DAY VIA HANDIHALER 30 capsule 11 11/05/2024 Active Start: 04-28-2021 End: 05-11-2021 take 2 puff(s) by inhalation once daily 2 puff, Inhalation, Daily (RT), First dose on Mon04/28/21 at 0900 Start: 02-11-2020 End: 04-20-2020 take 1 capsule by inhalation once daily Spiriva with HandiHaler 18 mcg inhalation capsule INHALE CONTENTS OF 1 CAPSULE WITH DEVICE DAILY 90 capsule 3 02/11/2020 04/20/2020 Discontinued (Duplicate order (Suppress CancelRx Message to Pharmacy)) Start: 09-05-2017 End: 08-22-2023 take 1 capsule by inhalation once daily Spiriva with HandiHaler 18 mcg inhalation capsule Indications: Chronic obstructive pulmonary disease, unspecified COPD type (CMS/HCC) Place 1 capsule (18 mcg) into inhaler and inhale once daily. AT THE SAME TIME EVERY DAY VIA HANDIHALER 90 capsule 3 08/22/2023 Active Start: 09-05-2017 SPIRIVA WITH H ANDIHALER 18 mcg inhalation capsule Start: 09-05-2017 SPIRIVA WITH H ANDIHALER 18 mcg inhalation capsule Comment on above: Source=Surescripts, Medication=SPIRIVA 18 MCG CP-HANDIHALER, Orig[facility]Source[facility]/pharmacy #[id number], OriginatingProvider=LOLA CRUZ, Duration=90, Quantity=90, Refills=3, Date Last Modified/Filled=05-Apr-2020 traMADol hydrochloride 50 mg oral tablet (9 sources) Opioid Agonist Star t: 04-29 End: 04-30 take 1 tablet by mouth every four hours as needed for pain traMADoL (ULTRAM) 50 mg tablet Indications: Closed displaced intertrochanteric fracture of right femur with routine healing, subsequent encounter Take 1 (one) tablet (50 mg total) by mouth every 4 (four) hours as needed for pain . 45 tablet 0 05/11/2021 05/26/2021 Active Start: 05-04-2021 End: 05-07-2021 traMADoL (ULTRAM) 50 mg tabl et Indications: Neck pain Take 1 (one) tablet (50 mg total) by mouth every 4 (four) hours as needed for pain Take twice as needed . 18 tablet 0 05/04/2021 05/07/2021 Start: 03-12-2021 End: 03-15-2021 traMADoL (ULTRAM) 50 mg tabl et Indications: Closed fracture of right hip, initial encounter (HCC) Take 1 (one) tablet (50 mg total) by mouth every 6 (six) hours as needed (Days supply per fill: 3) . 18 tablet 0 03/12/2021 03/15/2021 triamcinolone acetonide 1 mg/ml topical cream (20 sources) Corticosteroid Start: 12-19-2023 End: 03-26-2025 triamcinolone (KENALOG) 0.1 % cream Apply topically 2 (two) times a day . 30 g 03/26/2024 03/26/2025 Active venlafaxine 37.5 mg oral tablet (1 source) Serotonin and Norepinephrine Reuptake Inhibitor Start: 04-17-2025 Venlafaxine 37.5 mg tablet Active mg PO April 17, 2025 12:00am Completed/Discontinued Medications Medication Drug Class(es) Dates Sig (Normalized) Sig (Original) acetaminophen 325 mg / oxyCODONE hydrochloride 7.5 mg oral tablet (20 sources) Opioid Agonist End: 04-20-2020 take 1 tablet by mouth every eight hours as needed oxyCODONE-acetamino phen (PERCOCET) 7.5-325 mg per tablet Take 1 tablet by mouth every 8 (eight) hours as needed Takes 1/2 tab. 0 04/20/2020 Discontinued (Discontinued by another clinician) End: 05-11-2021 take 1 tablet by mouth every eight hours as needed oxyCODONE-acetaminophen (PERCOCET) 5-325 mg per tablet Take 1 tablet by mouth every 8 (eight) hours as needed for pain . 0 05/11/2021 Discontinued (Stop Taking at Discharge) oxyCODONE-Acetam inophen 7.5-325 MG Oral Tablet Refills: 0 DO Active take 3 tablets by mo uth once daily oxyCODONE-acetaminophen (PERCOCET) 7.5-325 mg per tablet Take 3 tablets by mouth daily. Active 30 actuat aclidinium bromide 0.4 mg/actuat dry powder inhaler (20 sources) End: 12-05-2024 take 1 puff(s) by inhalation twice daily aclidinium (Tudorza Pressair) 400 mcg/actuation inhaler Inhale 1 puff 2 times a day. 12/05/2024 Discontinued (Therapy completed) End: 01-22-2019 aclidinium bromide 400 mcg/actuation AePB Inhale 2 (two) times a day Tudorza. 0 01/22/2019 Discontinued take 1 puff(s) by in halation twice daily Tudorza Pressair 400 MCG/ACT Inhalation Aerosol Powder Breath Activated INHALE 1 PUFFS Twice daily Quantity: 0 Refills: 0 Ordered: 20-Sep-2022 DO Active aclidinium bromi de (TUDORZA PRESSAIR INHL) Inhale . 0 Active aclidinium bromi de 400 mcg/actuation AePB Inhale 2 (two) times a day Tudorza. Active albuterol 0.833 mg/ml / ipratropium bromide 0.167 mg/ml inhalant solution (2 sources) Anticholinergic, beta2-Adrenergic Agonist Start: 06-05-2019 End: 06-05-2019 ipratropium-albuterol (DUO-NEB) 0.5-2.5 mg/3 ml nebulizer solution 3 mL Start: 05-27-2019 End: 05-27-2019 ipratropium-albuterol (DUO-N EB) 0.5-2.5 mg/3 ml nebulizer solution 6 mL atropine sulfate 0.025 mg / diphenoxylate hydrochloride 2.5 mg oral tablet (20 sources) Anticholinergic, Cholinergic Muscarinic Antagonist, Antidiarrheal End: 12-04-2019 take 1 tablet by mouth once as needed for diarrhea diphenoxylate-atropine (LOMOTIL) 2.5-0.025 mg per tablet Take 1 tablet by mouth as needed for diarrhea. 0 12/04/2019 Discontinued (Patient's Request) azithromycin 250 mg oral tablet (11 sources) Macrolide Antimicrobial Start: 08-17-2020 Azithromycin 250 MG Oral Tablet TAKE DIRECTED. Quantity: 6 Refills: 0 Phyllis Mae MD Start : 17-Aug-2020 Active Start: 05-19-2020 Azithromycin 2 50 MG Oral Tablet TAKE DIRECTED. Quantity: 6 Refills: 0 Phyllis Mae MD Start : 19-May-2020 Active Start: 02-13-2020 azithromycin ( ZITHROMAX) 250 MG tablet Take two on day one, then one daily for four more days . 6 tablet 0 02/13/2020 Active blood-glucose meter,continuous (Dexcom G7 Data Deliverables Manager) Misc (1 source) Start: 09-09-2024 End: 09-09-2024 blood-glucose meter,continuous (Dexcom G7 Data Deliverables Manager) Misc Indications: Type 2 diabetes mellitus with stage 3b chronic kidney disease, with long-term current use of insulin (HCC) Use to check blood sugar four times daily . 1 each 09/09/2024 09/09/2024 Discontinued Budesonide / formoterol (1 source) Corticosteroid, beta2-Adrenergic Agonist Start: 04-27-2021 End: 05-11-2021 take 2 puff(s) by inhalation twice daily 2 puff, Inhalation, 2 times daily (RT), First dose on Mon04/27/21 at 2200 12 hr buPROPion hydrochloride 150 mg extended release oral tablet (13 sources) Aminoketone Start: 12-31-2020 take 1 tablet by mouth once daily buPROPion HCl ER (SR) 150 MG Oral Tablet Extended Release 12 Hour TAKE 1 TABLET EVERY 12 HOURS DAILY. Quantity: 60 Refills: 5 Ordered: 31-Dec-2020 Phyllis Mae MD Start : 31-Dec-2020 Active take 1 tablet by mouth twice lata ly buPROPion HCl ER (SR) 150 MG Oral Tablet Extended Release 12 Hour TAKE 1 TABLET TWICE DAILY. Quantity: 0 Refills: 0 Ordered: 03-Sep-2019 DO Active take 1 tablet by silviano th every twelve hours buPROPion (WELLBUTRIN SR, ZYBAN) 150 MG 12 hr tablet Take 150 mg by mouth 2 (two) times a day Take one tablet by mouth every 12 hours . 0 Active busPIRone hydrochloride 10 mg oral tablet (20 sources) Start: 04-16-2020 take 1 tablet by mouth three times daily as needed busPIRone HCl - 10 MG Oral Tablet TAKE 1 TABLET 3 times daily PRN Quantity: 90 Refills: 11 Ordered: 30-Nov-2020 Phyllis Mae MD Start : 16-Apr-2020 Active take 2 tablets by mo uth three times daily as needed busPIRone (BUSPAR) 5 MG tablet Take 10 m g by mouth 3 (three) times a day as needed . 0 Active take 1 tablet by mouth three pratibha es daily busPIRone (BUSPAR) 5 MG tablet Take 5 mg by mouth 3 (three) times a day . 0 Active Comment on above: Source=Surescripts, Medication=BUSPIRONE HCL 10 MG TABLET, [facility]/pharm[facility] #[id number], OriginatingProvider=PHYLLIS MAE, Duration=30, Quantity=90, Refills=5, Date Last Modified/Filled=19-May-2020 10 ml calcium gluconate 100 mg/ml injection (1 source) Start : 04-27 End: 04-27 calcium gluconate 100 mg/mL (10%) injection 1 g cefTRIAXone 1000 mg injection (1 source) Cephalosporin Antibacterial Start : 04-27 End: 04-27 cefTRIAXone (ROCEPHIN) IVPB 1 g (premix) Chantix Continuing Month Joe 1 MG Oral Tablet (1 source) Start : 09-09 take 1 tablet by mouth twice daily Chantix Continuing Month Joe 1 MG Oral Tablet TAKE 1 TABLET TWICE DAILY. Quantity: 60 Refills: 1 Ordered: 07-Oct-2020 Phyllis Mae MD Start : 09-Sep-2020 Active TO START AFTER FINISHING THE STARTER MONTH PACK Chantix Starting Month Joe 0.5 MG X 11 & 1 MG X 42 Oral Tablet (1 source) Start : 09-09 Chantix Starting Month Joe 0.5 MG X 11 & 1 MG X 42 Oral Tablet TAKE ONE 0.5MG TABLET DAILY ON DAYS 1-3, THEN ONE 0.5MG TABLET TWICE DAILY ON DAYS 4-7, THEN ONE 1MG TABLET TWICE DAILY THEREAFTER. Quantity: 1 Refills: 0 Ordered: 09-Sep-2020 Phyllis Mae MD Start : 09-Sep-2020 Active Dexcom G6 Sensor device (6 sources) Start : 12-14 End: 12-05 Dexcom G6 Sensor device Indications: Type 2 diabetes mellitus with other circulatory complication, with long-term current use of insulin To check BS QID 1 each 12/14/2023 12/05/2024 Discontinued (Therapy completed) Start: 12-14-2023 Dexcom G6 Sens or device Indications: Type 2 diabetes mellitus with other circulatory complication, with long-term current use of insulin To check BS QID 1 each 12/14/2023 Active Start: 12-14-2023 Dexcom G6 Sens or device Indications: Type 2 diabetes mellitus with other circulatory complication, with long-term current use of insulin (Multi) To check BS QID 1 each 12/14/2023 Active Start: 12-14-2023 Dexcom G6 Sens or device Indications: Type 2 diabetes mellitus with other circulatory complication, with long-term current use of insulin (CMS/HCC) To check BS QID 1 each 0 12/14/2023 Active Dexcom G6 Transmitter device (6 sources) Start: 12-14-2023 End: 12-05-2024 Dexcom G6 Transmitter device Indications: Type 2 diabetes mellitus with other circulatory complication, with long-term current use of insulin Use as instructed 1 each 12/14/2023 12/05/2024 Discontinued (Therapy completed) Start: 12-14-2023 Dexcom G6 Servin smitter device Indications: Type 2 diabetes mellitus with other circulatory complication, with long-term current use of insulin Use as instructed 1 each 12/14/2023 Active Start: 12-14-2023 Dexcom G6 Servin smitter device Indications: Type 2 diabetes mellitus with other circulatory complication, with long-term current use of insulin (Multi) Use as instructed 1 each 12/14/2023 Active Start: 12-14-2023 Dexcom G6 Servin smitter device Indications: Type 2 diabetes mellitus with other circulatory complication, with long-term current use of insulin (CMS/HCC) Use as instructed 1 each 0 12/14/2023 Active Dexcom G7 Sensor device (1 source) Start: 11-20-2024 End: 12-05-2024 Dexcom G7 Sensor device Martha cations: Type 2 diabetes mellitus with other circulatory complication, with long-term current use of insulin CHANGE EVERY 10 DAYS 3 each 11/20/2024 12/05/2024 Discontinued (Therapy completed) Disability Placard (20 sources) Disability Placa rd Duration lifetime Quantity: 1 Refills: 0 Ordered: 10-Jun-2020 Phyllis Mae MD Active Disability Placa rd Duration lifetime Quantity: 1 Refills: 0 Phyllis Mae MD Active doxycycline hyclate 100 mg oral tablet (12 sources) Tetracycline-class Drug Start: 05-07-2024 End: 12-05-2024 take 1 tablet by mouth every twelve hours doxycycline (Vibra-Tabs) 100 mg tablet Take 1 tablet (100 mg) by mouth every 12 hours. 05/07/2024 12/05/2024 Discontinued (Therapy completed) Start: 05-07-2024 End: 09-09-2024 take 1 tablet by mouth twice daily doxycycline hyclate (VIBRA-TABS) 100 MG tablet Take 1 (one) tablet (100 mg total) by mouth 2 (two) times a day . 14 tablet 05/07/2024 09/09/2024 Discontinued Start: 03-02-2023 End: 07-12-2023 take 1 capsule by mouth twice daily doxycycline hyclate (VIBRAMYCIN) 100 MG capsule Take 1 (one) capsule (100 mg total) by mouth 2 (two) times a day . 6 capsule 0 03/02/2023 07/12/2023 Discontinued Start: 05-27-2019 End: 06-06-2019 take 1 tablet by mouth twice daily doxycycline hyclate (VIBRA-TABS) 100 MG tablet Take 1 (one) tablet (100 mg total) by mouth 2 (two) times a day for 10 days . 20 tablet 0 05/27/2019 06/06/2019 Active Start: 05-27-2019 End: 05-27-2019 doxycycline (VIBRAMYCIN) cap stephanie 100 mg empagliflozin 10 mg oral tablet (20 sources) Sodium-Glucose Cotransporter 2 Inhibitor Start: 08-22-2023 End: 12-05-2024 take 1 tablet by mouth once daily empagliflozin (Jardiance) 10 mg Indications: Type 2 diabetes mellitus with hyperglycemic coma Take 1 tablet (10 mg) by mouth once daily. 90 tablet 3 08/22/2023 12/05/2024 Discontinued (Therapy completed) 100 ml fluconazole 2 mg/ml injection (1 source) Azole Antifungal Start: 04-29-2021 End: 05-01-2021 take 200 mg intravenously every twenty-four hours fluconazole (DIFLUCAN) IVPB 200 mg in NaCl (premix) folic acid 1 mg oral tablet (20 sources) Start: 07-25-2024 End: 07-25-2025 take 1 tablet by mouth once daily folic acid (Folvite) 1 mg tablet Indications: Folate deficiency Take 1 tablet (1 mg) by mouth once daily. 90 tablet 3 07/25/2024 12/05/2024 Discontinued (Therapy completed) End: 04-20-2020 take 1 tablet by mouth once daily folic acid (FOLVITE) 1 MG tablet Take 1 mg by mouth daily. 0 04/20/2020 Discontinued (Duplicate order (Suppress CancelRx Message to Pharmacy)) Comment on above: Source=Surescripts, Medication=FOLIC ACID 1 MG TABLET, [facility] #[id number], OriginatingProvider=LANCE PALACIOS, Duration=90, Quantity=90, Refills=11, Date Last Modified/Filled=19-Apr-2020 gemfibrozil 600 mg oral tablet (20 sources) Peroxisome Proliferator Receptor alpha Agonist End: 12-04 take 1 tablet by mouth twice daily gemfibrozil (LOPID) 600 MG tablet Take 600 mg by mouth 2 (two) times a day. 0 12/04/2019 Discontinued (Patient's Request) 50 ml glucose 500 mg/ml prefilled syringe (4 sources) Start : 04-28 End: 04-28 dextrose 50 % in water (D50W) syringe - ADS Override Pull Start: 04-28-2021 End: 04-28-2021 dextrose 50 % in water (D50W ) syringe 50 mL Start: 04-27-2021 End: 04-27-2021 dextrose 50 % in water (D50W ) syringe 25 mL 1 ml heparin sodium, porcine 5000 unt/ml injection (6 sources) Unfractionated Heparin, Anti-coagulant Start: 04-27-2021 End: 05-11-2021 inject 5000 [IU] by subcutaneous injection every eight hours 5,000 Units, Subcutaneous, Every 8 hours scheduled, First dose on Mon04/27/21 at 2200 Notify physician if patient refuses. Start: 03-08-2021 End: 03-29-2021 inject 1 mL by subcutaneous injection every eight hours heparin sodium,porcine (heparin, porcine,) 5,000 unit/mL injection Inject 1 mL (5,000 Units total) under the skin every 8 (eight) hours for 21 days . 63 mL 0 03/08/2021 03/29/2021 Active hydrALAZINE hydrochloride 50 mg oral tablet (11 sources) Arteriolar Vasodilator Start: 03-02-2023 End: 12-05-2024 take 1 tablet by mouth every eight hours hydrALAZINE (Apresoline) 50 mg tablet Take 1 tablet (50 mg) by mouth every 8 hours. 03/02/2023 12/05/2024 Discontinued (Therapy completed) hydroCHLOROthiazide 12.5 mg oral tablet (10 sources) Thiazide Diuretic Start: 03-03-2023 End: 11-05-2024 take 1 tablet by mouth once daily hydroCHLOROthiazide (HYDRODiuril) 12.5 mg tablet Take 1 tablet (12.5 mg) by mouth once daily. 03/03/2023 11/05/2024 Discontinued (Therapy completed) ibuprofen 600 mg oral tablet (1 source) Nonsteroidal Anti-inflammator y Drug Start: 04-29-2024 End: 12-05-2024 take 1 tablet by mouth every six hours as needed ibuprofen 600 mg tablet Take 1 tablet (600 mg) by mouth every 6 hours if needed. 04/29/2024 12/05/2024 Discontinued (Therapy completed) 3 ml insulin lispro 100 unt/ml pen injector (20 sources) Insulin Analog Start: 12-19-2023 End: 05-07-2024 insulin lispro (HumaLOG KwikPen Insulin) 100 unit/mL InPn Inject sliding scale at breakfast and supper up to 8 units daily total. Dx code E11.65 . 15 mL 1 12/19/2023 05/07/2024 Discontinued (Alternate therapy) Start: 04-28-2021 End: 05-11-2021 insulin lispro (HumaLOG) injection 0-30 Units Start: 04-27-2021 End: 05-11-2021 inject 1 dose by subcutaneous injection once daily 0-15 Units, Subcutaneous, At bedtime, First dose on Mon04/27/21 at 2100 For Nightly Insulin Dose Coverage, use: CORRECTIVE (Only) for BG greater than 300 Nightly CORRECTIVE Dose Method: Specific Corrective Dose Nightly Specific CORRECTIVE dose (units of insulin): 2 For Downtime Calculator, use: Insulin SC NIGHTtime Start: 03-12-2021 End: 04-11-2021 insulin lispro (HumaLOG) 100 unit/mL injection Inject 0 (zero) Units to 30 (thirty) Units under the skin 3 (three) times a day before meals . 27 mL 0 03/12/2021 04/11/2021 Active Start: 12-27-2019 End: 12-27-2019 inject 10 [IU] by subcutaneous injection three times daily, then inject 4-10 [IU] by subcutaneous injection three times daily at mealtime insulin lispro (HumaLOG KwikPen Insulin) 100 unit/mL InPn Inject 10 (ten) Units under the skin 3 (three) times a day Use as directed 4-10 units TID with meals. . 3 mL 11 12/27/2019 12/27/2019 Discontinued (Formulary change) End: 12-19-2023 inject 8 [IU] by subcutaneous injection once daily at breakfast insulin lispro (HumaLOG KwikPen Insulin) 100 unit/mL InPn Inject under the skin Inject sliding scale at breakfast and supper up to 8 units daily total. . 0 12/19/2023 Discontinued (Reorder (Suppress CancelRx Message to Pharmacy)) insulin, regular, human 100 unt/ml injectable solution (2 sources) Insulin Start: 04-27-2021 End: 04-27-2021 insulin regular (HumuLIN R, NovoLIN R) injection 10 Units NovoLIN R 100 un its/mL injectable solution ; sliding scale Quantity: 0 Refills: 0 Ordered: 04-Jan-2021 Eboni Fox Generic Substitution Allowed labetalol hydrochloride 100 mg oral tablet (20 sources) beta-Adrenergic Danny Start: 03-06-2023 End: 03-07-2023 labetalol (Normodyne) 100 mg tablet Indications: Type 2 diabetes mellitus with other circulatory complications (CMS/HCC) , Hypertension secondary to endocrine disorders TAKE 1 TABLET EVERY 12 HOURS DAILY 180 tablet 3 03/06/2023 03/07/2023 Discontinued (Duplicate order) Start: 02-19-2023 End: 02-27-2024 take 1 tablet by mouth twice daily labetaloL (NORMODYNE) 100 MG tablet Take 1 (one) tablet (100 mg total) by mouth 2 (two) times a day . 0 02/19/2023 04/05/2023 Discontinued (Patient's Request) Start: 05-04-2021 End: 06-16-2022 take 1 tablet by mouth once daily Labetalol HCl - 100 MG Oral Tablet TAKE 1 TABLET EVERY 12 HOURS DAILY. Quantity: 180 Refills: 3 Ordered: 29-Mar-2022 Phyllis Mae MD Start : 01-Jun-2021 Active Start: 05-01-2021 End: 05-11-2021 labetaloL (NORMODYNE) tablet 100 mg ammonium lactate 120 mg/ml topical cream (20 sources) Start: 12-19-2023 End: 01-02-2026 ammonium lactate (AMLACTIN) 12 % cream Apply topically 2 (two) times a day . 385 g 10/03/2024 01/02/2025 Discontinued (Reorder (Suppress CancelRx Message to Pharmacy)) levETIRAcetam 500 mg oral tablet (15 sources) Start: 06-21-2022 End: 11-05-2024 take 1 tablet by mouth once daily levETIRAcetam (Keppra) 500 mg tablet Take 1 tablet (500 mg) by mouth once daily. 06/21/2022 11/05/2024 Discontinued (Therapy completed) Start: 06-21-2022 levETIRAcetam 500 MG Oral Tablet Quantity: 60 Refills: 0 Ordered: 21-Jun-2022 DO Start : 21-Jun-2022 Active Start: 05-24-2022 End: 06-23-2022 take 1 tablet by mouth twice daily levETIRAcetam (Keppra) 500 MG tablet Take 1 (one) tablet (500 mg total) by mouth 2 (two) times a day . 60 tablet 0 05/24/2022 06/16/2022 Discontinued (Patient's Request) lisinopril 20 mg oral tablet (20 sources) Angiotensin Converting Enzyme Inhibitor End: 04-01-2019 take 2 tablets by mouth once daily lisinopril (PRINIVIL,ZESTRIL) 20 MG tablet Take 40 mg by mouth daily . 0 04/01/2019 Discontinued (Therapy completed) End: 04-20-2020 take 1 tablet by mouth once daily lisinopril (PRINIVIL,ZESTRIL) 40 MG tablet Take 40 mg by mouth daily . 0 04/20/2020 Discontinued (Duplicate order (Suppress CancelRx Message to Pharmacy)) take 1 tablet by silviano th once daily, then take 1 tablet by mouth lisinopril (PRINIVIL,ZESTRIL) 20 MG tablet Take 20 mg by mouth daily. Active Comment on above: Source=Surescripts, Medication=LISINOPRI L 40 MG TABLET, [facility]Source[facility] #[id number], OriginatingProvider=PHYLLIS MAE, Duration=90, Quantity=90, Refills=11, Date Last Modified/Filled=28-May-2020 losartan potassium 50 mg oral tablet (5 sources) Angiotensin 2 Receptor Danny Start : 04-16 End: 05-16 take 1 tablet by mouth twice daily losartan (COZAAR) 50 MG tablet Take 1 (one) tablet (50 mg total) by mouth 2 (two) times a day . 60 tablet 0 04/16/2021 04/28/2021 Discontinued (Stop Taking at Discharge) Magnesium (20 sources) Start : 12-18 take 2 tablets by mouth once daily Magnesium 400 MG Oral Tablet TAKE 2 TABLET Daily Quantity: 60 Refills: 11 Ordered: 08-Feb-2021 Lance Palacios MD Start : 18-Dec-2019 Active Start: 12-18-2019 take 1 tablet by silviano th once daily Magnesium 400 MG Oral Tablet Take 1 tablet daily Quantity: 30 Refills: 11 Phyllis Mae MD Start : 18-Dec-2019 Active magnesium hydroxide 80 mg/ml oral suspension (1 source) End: 04-29-2021 take 30 mL by mouth once as needed magnesium hydroxide (magnesium hydroxide) 400 mg/5 mL Susp Take 30 mL by mouth every third day as needed If no BM in 3 days . 0 04/29/2021 Discontinued 50 ml magnesium sulfate 40 mg/ml injection (1 source) Start: 04-30-2021 End: 05-01-2021 magnesium sulfate 2 g in sterile water (SW) 50 mL IVPB metFORMIN hydrochloride 500 mg oral tablet (20 sources) Biguanide Start: 12-27-2019 End: 04-28-2021 take 1 tablet by mouth twice daily at mealtime metFORMIN (GLUCOPHAGE) 500 MG tablet Take 1 (one) tablet (500 mg total) by mouth 2 (two) times a day with meals . 60 tablet 11 12/27/2019 04/20/2020 Discontinued (Duplicate order (Suppress CancelRx Message to Pharmacy)) Comment on above: Source=Surescripts, Medication=METFORMIN HCL 500 MG TABLET, Orig[facility]Source[facility]/pharmacy #[id number], OriginatingProvider=PHYLLIS MAE, Duration=90, Pfpuvcnl=318, Refills=11, Date Last Modified/Filled=29-Apr-2020 methylPREDNISolone 4 MG Oral Tablet Therapy Pack (6 sources) Start: 07-12-2021 End: 08-24-2021 methylPREDNISolone 4 MG Oral Tablet Therapy Pack as directed Quantity: 21 Refills: 0 Ordered: 12-Jul-2021 Phyllis Mae MD Start : 12-Jul-2021 End : 24-Aug-2021 Complete Start: 07-12-2021 methylPREDNISo lone 4 MG Oral Tablet Therapy Pack as directed Quantity: 21 Refills: 0 Ordered: 12-Jul-2021 Phyllis Mae MD Start : 12-Jul-2021 Active Multi Vitamin Oral Tablet (4 sources) take 1 tablet by silviaon th once daily Multi Vitamin Oral Tablet TAKE 1 TABLET DAILY. Refills: 0 Active take 1 tablet by mouth once rosa y Multi Vitamin Oral Tablet TAKE 1 TABLET DAILY. Refills: 0 DO Active Multi Vitamin Oral Tablet (20 sources) take 1 tablet by silviano th once daily Multi Vitamin Oral Tablet TAKE 1 TABLET DAILY. Quantity: 0 Refills: 0 Ordered: 03-Sep-2019 DO Active take 1 tablet by mouth once rosa y Multi Vitamin Oral Tablet TAKE 1 TABLET DAILY. Refills: 0 DO Active multivitamin with minerals tablet (20 sources) End: 04-17-2021 take 1 tablet by mouth once daily multivitamin with minerals tablet Take 1 tablet by mouth daily. 0 04/17/2021 Discontinued (Stop Taking at Discharge) take 1 tablet by mouth once rosa y multivitamin with minerals tablet Take 1 tablet by mouth daily. 0 Active take 1 tablet by mouth once rosa y multivitamin with minerals tablet Take 1 tablet by mouth daily. Active naloxone (NARCAN) injection 0.1 mg (1 source) Start: 04-29-2021 End: 05-11-2021 naloxone (NARCAN) injection 0.1 mg 24 hr NIFEdipine 30 mg extended release oral tablet (20 sources) Dihydropyridine Calcium Channel Danny Start: 04-30-2021 End: 06-02-2022 take 1 tablet by mouth once daily NIFEdipine ER 30 MG Oral Tablet Extended Release 24 Hour TAKE 1 TABLET DAILY. Quantity: 90 Refills: 3 Ordered: 25-Jul-2022 Phyllis Mae MD Start : 01-Jun-2021 Active Start: 04-13-2021 End: 05-13-2021 take 60 mg by mouth once daily 60 mg, Oral, Daily, Fir st dose on Madeline 04/29/21 at 1630 DO NOT CRUSH OR CHEW. olopatadine 1 mg/ml ophthalmic solution (20 sources) Histamine-1 Receptor Inhibitor Start: 09-14-2021 take 1 drop(s) into the eye(s) twice daily as needed Olopatadine HCl - 0.1 % Ophthalmic Solution INSTILL 1 DROP INTO BOTH EYES TWICE DAILY NEEDED AT 6-8 HOUR INTERVALS. Quantity: 1 Refills: 1 Ordered: 01-Dec-2021 Phyllis Mae MD Start : 14-Sep-2021 Active omeprazole 20 mg delayed release oral capsule (20 sources) Proton Pump Inhibitor End: 04-20-2020 take 1 capsule by mouth once daily omeprazole (PRILOSEC) 20 MG capsule Take 20 mg by mouth daily . 0 04/20/2020 Discontinued (Discontinued by another clinician) Comment on above: Source=Surescripts, Medication=OMEPRAZOLE DR 20 MG CAPSULE, OriginatingSource=[facility]/pharmacy #[id number], OriginatingProvider=PHYLLIS MAE, Duration=90, Quantity=90, Refills=5, Date Last Modified/Filled=02-Nov-2019 ondansetron 4 mg oral tablet (20 sources) Serotonin-3 Receptor Antagonist End: 12-04-2019 take 1 tablet by mouth every four hours as needed for nausea ondansetron (ZOFRAN) 4 MG tablet Take 4 mg by mouth every 4 (four) hours as needed for nausea . 0 12/04/2019 Discontinued (Patient's Request) ondansetron (ZOFRAN-ODT) disintegrating tablet 4 mg (1 source) Start: 04-27-2021 End: 05-11-2021 take 1 tablet by mouth every six hours as needed ondansetron (ZOFRAN-ODT) disintegrating tablet 4 mg Pen [place] (4 sources) Pen [place] USE BID WITH LANTUS Refills: 0 Active Pen [place] USE BID WITH LANTUS Refills: 0 DO Active Pen [place] (1 source) Pen [place] USE BID WITH LANTUS Refills: 0 DO Active piperacillin 3000 mg / tazobactam 375 mg injection (1 source) Penicillin-class Antibacterial, beta Lactamase Inhibitor Start: 04-27-20 End: 04-30-20 21 take 3.375 g intravenously every eight hours piperacillin-tazob actam (ZOSYN) IVPB 3.375 g (premix) Pneumovax 23 25 MCG/0.5ML Injection Injectable (3 sources) Start: 12-29-19 End: 06-01-20 Pneumovax 23 25 MCG/0.5ML Injection Injectable inject 0.5 mL once Quantity: 1 Refills: 0 Ordered: 28-Dec-2020 Lance Palacios MD Start : 28-Dec-2020 End : 01-Jun-2021 Complete Start: 12-28-2020 Pneumovax 23 2 5 MCG/0.5ML Injection Injectable inject 0.5 mL once Quantity: 1 Refills: 0 Ordered: 28-Dec-2020 Lance Palacios MD Start : 28-Dec-2020 Active predniSONE 10 mg oral tablet (19 sources) Start: 04-12-2023 End: 07-12-2023 take 1 tablet by mouth once daily at breakfast predniSONE (DELTASONE) 10 MG tablet TAKE 1 (ONE) TABLET (10 MG TOTAL) BY MOUTH DAILY WITH BREAKFAST START: 03/03/23. 90 tablet 1 04/12/2023 07/12/2023 Discontinued Start: 03-03-2023 End: 03-07-2023 take 1 tablet by mouth once daily at breakfast predniSONE (DELTASONE) 10 MG tablet Take 1 (one) tablet (10 mg total) by mouth daily with breakfast Start: 03/03/23. 100 tablet 0 03/03/2023 Active Start: 10-15-2020 take 1 tablet by mouth once da ambrosio predniSONE 2.5 MG Oral Tablet Take 1 tablet daily Quantity: 30 Refills: 1 Ordered: 05-Apr-2021 Phyllis Mae MD Start : 15-Oct-2020 Active Start: 04-16-2020 take 1 tablet by silviano th four times daily, then take 1 tablet by mouth three times daily, then take 1 tablet by mouth twice daily, then take 1 tablet by mouth once daily, then take 0.5 tablet by mouth once daily predniSONE 10 MG Oral Tablet 1 TAB PO QID X 4 DAYS , THEN 1 PO TID X 4 DAYS , THEN 1 PO BID X 4 DAYS AND THEN 1 PO DAILY X 4 DAYS 1/2 TAB PO DAILY X 4 DAYS Quantity: 42 Refills: 0 Phyllis Mae MD Start : 19-May-2020 Active Start: 02-13-2020 End: 02-28-2020 predniSONE (DELTASONE) 10 MG tablet 3 TABLETS DAILY FOR 5 DAYS, 2 TABLETS DAILY FOR 5 DAYS, 1 TABLET DAILY FOR 5 DAYS. TAKE WITH FOOD . 30 tablet 0 02/13/2020 02/28/2020 Active Start: 05-27-2019 End: 06-01-2019 take 1 tablet by mouth once daily predniSONE (DELTASON E) 50 MG tablet Take 1 (one) tablet (50 mg total) by mouth daily for 5 days . 5 tablet 0 05/27/2019 06/01/2019 Active regadenoson (LEXISCAN) 0.4 m g/5 mL injection - ADS Override Pull (1 source) Start: 04-28-2020 End: 04-28-2020 regadenoson (LEXISCAN) 0.4 m g/5 mL injection - ADS Override Pull sodium bicarbonate 150 mEq i n dextrose 5% 1000 mL infusion (1 source) Start: 04-27-2021 End: 04-27-2021 125 mL/hr, Intravenous, at 1 25 mL/hr, Continuous, Starting on Mon04/27/21 at 1830 1000 ml sodium chloride 9 mg /ml injection (4 sources) Start: 04-27-2021 End: 04-30-2021 sodium chloride 0.9% (NS) Start: 04-27-2021 End: 04-27-2021 1,000 mL, Intravenous, at 1, 935.5 mL/hr, Once, On Mon04/27/21 at 1720, For 1 dose Start: 04-27-2021 End: 05-11-2021 sodium chloride (PF) (NS) fl ush 5 mL Start: 04-27-2021 End: 04-27-2021 sodium chloride 0.9% (NS) jensen nilam 500 mL sodium phosphate, dibasic 59.3 mg/ml / sodium phosphate, monobasic 161 mg/ml enema (1 source) End: 05-11-2021 take 1 dose rectal route once daily as needed sodium phosphates (FLEETS ADULT) 19-7 gram/118 mL Enem Insert 1 each into the rectum daily as needed If no results from Doculax suppository . 0 05/11/2021 Discontinued (Stop Taking at Discharge) sodium zirconium cyclosilicate 86037 mg powder for oral suspension (1 source) Start: 04-27-2021 End: 04-27-2021 10 g, Oral, Once, On Mon04/27/21 at 1720, For 1 dose Empty entire contents of the packet(s) into a glass with minimum of 3 tablespoons (45 mL) of water. Stir well and drink immediately; if powder remains in the glass, add water, stir and drink immediately; repeat until no powder remains. Administer other oral medications greater than or equal to 2 hours before or 2 hours after dose. "NOT for rectal admininstration" technetium (Tc-99m) tetrofosmin (Tc-MYOVIEW) injection 8-25 millicurie (1 source) Start: 04-28-2020 End: 04-28-2020 technetium (Tc-99m) tetrofosmin (Tc-MYOVIEW) injection 8-25 millicurie traMADoL (ULTRAM) 50 mg, acetaminophen (TYLENOL) 325 mg combo dose (1 source) Start: 04-29-2021 End: 05-11-2021 traMADoL (ULTRAM) 50 mg, acetaminophen (TYLENOL) 325 mg combo dose traZODone hydrochloride 50 mg oral tablet (20 sources) Serotonin Reuptake Inhibitor Start: 08-24-2021 take 1 tablet by mouth at bedtime traZODone HCl - 50 MG Oral Tablet TAKE 1 TABLET AT BEDTIME. Quantity: 30 Refills: 11 Ordered: 24-Aug-2021 Phyllis Mae MD Start : 24-Aug-2021 Active 200 ml vancomycin 5 mg/ml injection (2 sources) Glycopeptide Antibacterial Start: 05-03-2021 End: 05-03-2021 vancomycin (VANCOCIN) 1000 mg in sodium chloride 0.9% (NS) 200 mL IVPB Start: 04-29-2021 End: 05-03-2021 vancomycin (VANCOCIN) 1000 m g in sodium chloride 0.9% (NS) 200 mL IVPB Chantix Starting Month Joe 0.5 MG X 11 & 1 MG X 42 Oral Tablet (2 sources) Partial Cholinergic Nicotinic Agonist Start: 09-09-2020 take 1 tablet by mouth twice daily Chantix Continuing Month Joe 1 MG Oral Tablet TAKE 1 TABLET TWICE DAILY. Quantity: 60 Refills: 1 Phyllis Mae MD Start : 09-Sep-2020 Active Start: 09-09-2020 Chantix Starti ng Month Joe 0.5 MG X 11 & 1 MG X 42 Oral Tablet TAKE ONE 0.5MG TABLET DAILY ON DAYS 1-3, THEN ONE 0.5MG TABLET TWICE DAILY ON DAYS 4-7, THEN ONE 1MG TABLET TWICE DAILY THEREAFTER. Quantity: 1 Refills: 0 Phyllis Mae MD Start : 09-Sep-2020 Active 53 Tablet Pack vitamin b12 1 mg oral tablet (20 sources) Vitamin B12 End: 11-23-2020 take 1 tablet by mouth once daily cyanocobalamin (vitamin B-12) 1000 MCG tablet Take 1,000 mcg by mouth daily. 0 11/23/2020 Discontinued Problems Active Problems Problem Classification Problem Date Documented Date Episodic/Chronic Acute and unspecified renal failure (20 sources) Chronic renal failure; 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: [Chronic kidney disease, Stage III (moderate)] Onset: 03-03-2023 03-07-2023 Chronic Alcohol-related disorders (20 sources) Alcohol intoxication; 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: [Alcohol dependence] Onset: 04-14-2020 04-14-2020 Chronic Anxiety disorders (20 sources) Mixed anxiety and depressive disorder; 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: [Dysthymic disorder] Onset: 03-03-2023 03-03-2023 Chronic Aortic; peripheral; and visceral artery aneurysms (20 sources) Aneurysm of thoracic aorta; 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: [Thoracic aneurysm without mention of rupture] Onset: 03-03-2023 03-03-2023 Chronic Chronic kidney disease (20 sources) Chronic kidney disease; 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: [Anemia in chronic kidney disease] Onset: 12-07-2016 Resolved: 12-05-2024 03-03-2023 Chronic Chronic kidney disease (8 sources) Chronic kidney disease; 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: [Chronic kidney disease, stage 3b] Onset: 02-27-2023 Chronic obstructive pulmonary disease and bronchiectasis (20 sources) Chronic obstructive lung disease; 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: [Acute exacerbation of chronic obstructive airways disease] Onset: 07-25-2018 07-25-2018 Chronic Chronic ulcer of skin (9 sources) Chronic ulcer of skin of lower leg; 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: [Non-pressure chronic ulcer of unspecified part of left lower leg limited to breakdown of skin] Onset: 11-09-2022 Resolved: 11-05-2024 Chronic Coagulation and hemorrhagic disorders (7 sources) Thrombocytopenic disorder; 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: [Thrombocytopenia, unspecified] Onset: 07-25-2024 07-25-2024 Chronic Coronary atherosclerosis and other heart disease (20 sources) Stable angina; 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: [Other and unspecified angina pectoris] Onset: 03-03-2023 03-07-2023 Chronic Deficiency and other anemia (5 sources) Anemia of chronic disease; 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: [Anemia of other chronic disease] Chronic Deficiency and other anemia (20 sources) Anemia co-occurrent and due to chronic kidney disease stage 3; 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: [Anemia due to stage 3a chronic kidney disease (HCC)] Onset: 04-14-2021 Chronic Deficiency and other anemia (6 sources) Anemia, unspecified; 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: [Anemia, unspecified] Onset: 04-10-2023 Episodic Diabetes mellitus with complications (20 sources) Diabetic neuropathy; 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: [Type 2 diabetes mellitus] Onset: 04-21-2016 Chronic Diabetes mellitus without complication (20 sources) Diabetes mellitus; 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: [Type 2 diabetes mellitus] Onset: 04-21-2016 04-21-2016 Chronic Disorders of lipid metabolism (20 sources) Hypertriglyceridemia; 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: [Mixed hyperlipidemia] Onset: 02-27-2023 03-07-2023 Chronic Esophageal disorders (20 sources) Gastroesophageal reflux disease; 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: [Esophageal reflux] Onset: 03-03-2023 03-07-2023 Chronic Essential hypertension (20 sources) Hypertensive disorder; 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: [Benign essential hypertension] Onset: 04-16-2021 Chronic External cause codes: Fall (15 sources) Fall; 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: [Fall down stairs] Onset: 04-14-2020 04-14-2020 Fluid and electrolyte disorders (1 source) Hyperkalemia; 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: [Hyperkalemia] Episodic Fracture of lower limb (3 sources) Closed fracture of ankle; 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: [Other fracture of right lower leg, initial encounter for closed fracture] 04-10-2025 Episodic Gastritis and duodenitis (2 sources) Superficial gastritis; 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: [Chronic superficial gastritis without bleeding] 03-07-2023 Chronic Hyperplasia of prostate (20 sources) Hyperplasia of prostate; 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: [Benign localized hyperplasia of prostate with urinary obstruction and other lower urinary tract symptoms (LUTS)] Onset: 03-03-2023 03-03-2023 Chronic Hypertension with complications and secondary hypertension (2 sources) Hypertension secondary to endocrine disorders; 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: [Hypertension secondary to endocrine disorders] Onset: 03-03-2023 Chronic Malaise and fatigue (3 sources) Fatigue; 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: [Chronic fatigue, unspecified] Onset: 11-05-2024 11-05-2024 Chronic Mood disorders (20 sources) Major depression in remission; 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: [Major depressive affective disorder, single episode, in partial or unspecified remission] Onset: 03-03-2023 03-07-2023 Chronic Neoplasms of unspecified nature or uncertain behavior (5 sources) Monoclonal gammopathy (clinical); 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: [Monoclonal gammopathy] Chronic Nonmalignant breast conditions (3 sources) Pain of breast; 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: [Nipple pain] Episodic Occlusion or stenosis of precerebral arteries (20 sources) Occlusion and stenosis of bilateral carotid arteries; 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: [Left carotid artery stenosis] Onset: 03-30-2016 Resolved: 04-06-2021 03-30-2016 Chronic Occlusion or stenosis of precerebral arteries (2 sources) Bilateral carotid artery stenosis; 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: [Bilateral carotid artery stenosis] Onset: 03-30-2016 03-30-2016 Osteoarthritis (14 sources) Arthritis; 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: [Arthropathy, unspecified, site unspecified] Chronic Other aftercare (1 source) Encounter for other specified aftercare; 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: [Encounter for other specified aftercare] Onset: 11-09-2022 Episodic Other circulatory disease (20 sources) Stricture of artery; 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: [Iliac artery stenosis] Onset: 11-28-2018 11-28-2018 Chronic Other circulatory disease (20 sources) History of hypotension; 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: [Personal history of other diseases of circulatory system] Episodic Other circulatory disease (6 sources) H/O: angina pectoris; 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: [Personal history of other diseases of circulatory system] Episodic Other circulatory disease (1 source) Low blood pressure; 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: [Hypotension, unspecified] 02-22-2024 Episodic Other circulatory disease (1 source) Hypotensive episode; 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: [Hypotension, unspecified] 02-27-2024 Episodic Other connective tissue disease (1 source) Impaired ability to transfer location; 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: [Unspecified symptoms and signs involving the musculoskeletal system] Onset: 03-03-2023 03-03-2023 Episodic Other connective tissue disease (3 sources) Pain of toes of bilateral feet; 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: [Pain in right toe(s)] 12-19-2023 Episodic Other connective tissue disease (2 sources) Bilateral weakness of upper limbs; 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: [Other symptoms and signs involving the musculoskeletal system] 11-05-2024 Episodic Other hematologic conditions (4 sources) Macrocytosis; 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: [Macrocytosis] Episodic Other hereditary and degenerative nervous system conditions (20 sources) Essential tremor; 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: [Essential and other specified forms of tremor] Onset: 06-16-2022 Chronic Other hereditary and degenerative nervous system conditions (2 sources) Impaired cognition; 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: [Mild cognitive impairment, so stated] 04-05-2023 Chronic Other hereditary and degenerative nervous system conditions (1 source) Essential tremor; 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: [Essential tremor] Onset: 03-03-2023 Chronic Other inflammatory condition of skin (20 sources) Itching of skin; 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: [Unspecified pruritic disorder] Onset: 03-03-2023 03-03-2023 Episodic Other injuries and conditions due to external causes (20 sources) H/O: hip fracture; 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: [Personal history of traumatic fracture] Episodic Other injuries and conditions due to external causes (1 source) Unspecified injury of unspecified lower leg, initial encounter; 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: [Unspecified injury of unspecified lower leg, initial encounter] Onset: 04-14-2025 Episodic Other liver diseases (9 sources) Steatosis of liver; 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: [Fatty (change of) liver, not elsewhere classified] Onset: 03-07-2023 03-07-2023 Chronic Other lower respiratory disease (1 source) Rib pain; 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: [Pleurodynia] 03-07-2023 Episodic Other nervous system disorders (20 sources) Neurogenic claudication; 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: [Other vascular myelopathies] Onset: 05-24-2017 05-24-2017 Chronic Other nervous system disorders (20 sources) Chronic pain syndrome; 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: [Chronic pain syndrome] Onset: 03-03-2023 Resolved: 12-05-2024 03-03-2023 Chronic Other nervous system disorders (20 sources) Vascular myelopathy; 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: [Vascular myelopathies] Onset: 03-03-2023 03-07-2023 Chronic Other nervous system disorders (1 source) Numbness of face; 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: [Facial numbness] Episodic Other nervous system disorders (1 source) Loss of sense of smell; 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: [Loss of smell] Episodic Other nervous system disorders (1 source) Loss of taste; 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: [Loss of taste] Episodic Other nutritional; endocrine; and metabolic disorders (20 sources) Dyslipidemia; 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: [Hyperlipidemia, unspecified] Onset: 12-03-2017 12-03-2017 Chronic Other nutritional; endocrine; and metabolic disorders (20 sources) Hypomagnesemia; 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: [Disorders of magnesium metabolism] Onset: 03-03-2023 03-03-2023 Chronic Other nutritional; endocrine; and metabolic disorders (10 sources) Weight loss; 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: [Loss of weight] Episodic Other nutritional; endocrine; and metabolic disorders (9 sources) Decrease in appetite; 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: [Anorexia] Episodic Other skin disorders (5 sources) Asteatosis cutis; 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: [Xerosis cutis] 12-19-2023 Episodic Other skin disorders (5 sources) Dystrophia unguium; 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: [Nail dystrophy] 12-19-2023 Episodic Other skin disorders (1 source) Ingrowing toenail; 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: [Ingrowing nail] 05-14-2024 Episodic Paralysis (1 source) Paraparesis 11-05-2024 Chronic Peripheral and visceral atherosclerosis (20 sources) Peripheral vascular disease; 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: [Claudication] Onset: 05-24-2017 05-24-2017 Chronic Pneumonia (except that caused by tuberculosis or sexually transmitted disease) (1 source) Infective pneumonia; 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: [Pneumonia of left lower lobe due to infectious organism (HCC)] Episodic Residual codes; unclassified (20 sources) General finding of observation of patient; 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: [Unspecified problems with limbs and other problems] Episodic Residual codes; unclassified (9 sources) History of clinical finding in subject; 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: [Personal history of other specified diseases] Episodic Residual codes; unclassified (15 sources) Itching of eye; 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: [Other general symptoms] Episodic Spondylosis; intervertebral disc disorders; other back problems (20 sources) Cervical spondylosis; 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: [Cervical spondylosis without myelopathy] Onset: 05-04-2022 03-03-2023 Chronic Substance-related disorders (4 sources) Nicotine dependence, unspecified, uncomplicated; 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: [Nicotine dependence, unspecified, uncomplicated] Onset: 02-22-2024 Chronic Substance-related disorders (3 sources) Cigarette smoker ; 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: [Cigarette Smoker] Episodic Superficial injury; contusion (2 sources) Contusion of right knee; 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: [Contusion of right knee, initial encounter] 04-10-2025 Episodic Syncope (3 sources) Tussive syncope; 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: [Syncope and collapse] Episodic Unclassified (20 sources) Tobacco user; 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: [Tobacco use] Onset: 07-25-2018 07-25-2018 Chronic Unclassified (15 sources) Spinal stenosis, lumbar region with neurogenic claudication; 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: [Neurogenic claudication] Onset: 05-24-2017 05-24-2017 Unclassified (2 sources) Screening status; 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: [Screening for malignant neoplasm of respiratory organ] Unclassified (8 sources) Patient encounter status; 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: [Screening for malignant neoplasm of respiratory organ] 11-05-2024 Unclassified (1 source) Closed fracture of multiple right ribs; 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: [Closed fracture of multiple ribs of right side, initial encounter] Unclassified (9 sources) Closed fracture of multiple left ribs; 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: [Closed fracture of multiple ribs of left side] Onset: 06-10-2020 06-10-2020 Unclassified (1 source) Closed fracture of multiple left and right ribs; 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: [Closed fracture of multiple ribs of both sides, initial encounter] Unclassified (2 sources) RT FOOT SORE 11-09-2022 Comment on above: RT FOOT SORE Unclassified (1 source) 3 MONTH FU 09-20-2022 Comment on above: 3 MONTH FU Unclassified (2 sources) Nail Care Onset: 06-27-2024 Urinary tract infections (1 source) Acute urinary tract infection; 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: [Urinary tract infection, site not specified] Episodic Past or Other Problems Problem Classification Problem Date Documented Date Episodic/Chronic Abdominal pain (20 sources) Abdominal pain; 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: [Epigastric pain] Onset: 03-03-2023 Resolved: 12-05-2024 03-07-2023 Episodic Acute and unspecified renal failure (20 sources) Acute renal failure syndrome; 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: [[id number]-vo-rzpriob renal failure] Onset: 04-06-2021 Resolved: 04-29-2021 04-06-2021 Episodic Administrative/social admission (20 sources) Advance directive discussed with patient; 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: [Other specified counseling] Onset: 05-04-2022 Resolved: 12-05-2024 03-03-2023 Episodic Biliary tract disease (20 sources) Biliary calculus; 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: [Calculus of gallbladder without mention of cholecystitis, without mention of obstruction] Onset: 03-03-2023 03-03-2023 Episodic Complication of device; implant or graft (20 sources) Urinary tract infectious disease; 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: [Infection and inflammatory reaction due to indwelling urethral catheter, initial encounter] Onset: 04-06-2021 Resolved: 04-19-2023 04-06-2021 Episodic Deficiency and other anemia (20 sources) Anemia; 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: [Anemia, unspecified] Onset: 07-06-2017 Resolved: 05-28-2024 03-15-2021 Episodic Deficiency and other anemia (20 sources) Megaloblastic anemia; 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: [Unspecified deficiency anemia] Onset: 03-03-2023 Resolved: 12-05-2024 03-03-2023 Episodic Deficiency and other anemia (2 sources) Other megaloblastic anemias, not elsewhere classified; 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: [Other megaloblastic anemias, not elsewhere classified] Onset: 03-03-2023 Episodic E Codes: Fall (20 sources) Fall (on) (from) other stairs and steps, initial encounter; 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: [Accidental fall on or from other stairs or steps] Onset: 04-14-2020 Resolved: 04-29-2021 04-14-2020 Episodic Fracture of neck of femur (hip) (20 sources) Closed fracture of hip; 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: [Fracture of unspecified part of neck of unspecified femur, initial encounter for closed fracture] Onset: 03-08-2021 Resolved: 02-27-2023 03-08-2021 Episodic Genitourinary symptoms and ill-defined conditions (20 sources) Retention of urine; 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: [Retention of urine, unspecified] Onset: 04-05-2021 Resolved: 05-28-2024 Episodic Immunizations and screening for infectious disease (20 sources) Patient encounter status; 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: [Other specified vaccination] Onset: 12-05-2024 08-22-2023 Episodic Malaise and fatigue (20 sources) Fatigue; 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: [Other malaise and fatigue] Onset: 03-03-2023 Resolved: 12-05-2024 03-07-2023 Episodic Mood disorders (5 sources) Mood disorders Onset: 04-27-2021 04-27-2021 Mycoses (7 sources) Onychomycosis; 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: [Tinea unguium] Onset: 03-26-2024 12-19-2023 Episodic Nonspecific chest pain (20 sources) Chest pain; 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: [Chest pain, unspecified] Onset: 10-18-2018 Resolved: 04-19-2023 10-18-2018 Episodic Nutritional deficiencies (7 sources) Folic acid deficiency; 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: [Deficiency of other specified B group vitamins] Onset: 07-25-2024 07-25-2024 Episodic Other aftercare (8 sources) senior care (current) use of insulin; 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: [senior care (current) use of insulin] Onset: 02-27-2023 Episodic Other circulatory disease (20 sources) History of carotid endarterectomy; 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: [Cardiovascular stress test abnormal] Onset: 03-30-2016 03-30-2016 Episodic Other circulatory disease (20 sources) Aortic pulsation in abdomen; 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: [Other specified symptoms and signs involving the circulatory and respiratory systems] Onset: 10-18-2018 Resolved: 04-29-2021 10-18-2018 Episodic Other circulatory disease (20 sources) History of cerebrovascular accident; 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: [Personal history of transient ischemic attack (TIA), and cerebral infarction without residual deficits] Onset: 04-05-2021 Episodic Other circulatory disease (20 sources) Carotid bruit; 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: [Other symptoms involving cardiovascular system] Onset: 03-03-2023 03-03-2023 Episodic Other circulatory disease (5 sources) Personal history of transient ischemic attack (TIA), and cerebral infarction without residual deficits; 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: [Prsnl hx of TIA (TIA), and cereb infrc w/o resid deficits] Onset: 05-04-2022 Episodic Other circulatory disease (4 sources) Hypotension, unspecified; 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: [Hypotension, unspecified] Onset: 02-22-2024 Episodic Other connective tissue disease (20 sources) Cramp in lower limb; 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: [Cramp of limb] Onset: 03-03-2023 03-03-2023 Episodic Other connective tissue disease (2 sources) Spasm; 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: [Spasm of muscle] Episodic Other connective tissue disease (3 sources) Biceps tendinitis; 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: [Bicipital tenosynovitis] Episodic Other connective tissue disease (20 sources) Muscle weakness of limb; 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: [Muscle weakness (generalized)] Onset: 03-03-2023 03-03-2023 Episodic Other connective tissue disease (1 source) Calcific tendinitis of right shoulder; 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: [Calcifying tendinitis of shoulder] Episodic Other connective tissue disease (1 source) Muscle weakness (generalized); 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: [Muscle weakness (generalized)] Onset: 05-04-2022 Episodic Other connective tissue disease (20 sources) Neurogenic claudication; 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: [Other symptoms and signs involving the nervous system] Onset: 05-24-2017 03-03-2023 Episodic Other connective tissue disease (6 sources) Recurrent falls ; 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: [Repeated falls] Onset: 02-27-2024 12-14-2023 Episodic Other connective tissue disease (5 sources) Muscle weakness of upper limb; 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: [Other symptoms and signs involving the musculoskeletal system] Onset: 03-03-2023 02-27-2024 Episodic Other connective tissue disease (6 sources) Paraparesis; 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: [Other symptoms and signs involving the musculoskeletal system] Onset: 02-27-2024 02-27-2024 Episodic Other connective tissue disease (2 sources) Other symptoms and signs involving the nervous system; 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: [Other symptoms and signs involving the nervous system] Onset: 02-27-2023 Episodic Other connective tissue disease (2 sources) Pain in right foot; 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: [Pain in right foot] Onset: 05-14-2024 Episodic Other connective tissue disease (2 sources) Pain in right toe(s); 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: [Pain in right toe(s)] Onset: 03-26-2024 Episodic Other connective tissue disease (2 sources) Pain in left toe(s); 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: [Pain in left toe(s)] Onset: 03-26-2024 Episodic Other connective tissue disease (2 sources) Other symptoms and signs involving the musculoskeletal system; 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: [Other symptoms and signs involving the musculoskeletal system] Onset: 11-05-2024 Episodic Other connective tissue disease (2 sources) Calcific tendinitis of right shoulder; 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: [Calcific tendinitis of right shoulder] Other disorders of stomach and duodenum (20 sources) Intestinal metaplasia of gastric mucosa; 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: [Other specified disorders of stomach and duodenum] Onset: 03-03-2023 03-03-2023 Episodic Other eye disorders (20 sources) Scleral discoloration; 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: [Other disorders of sclera] Onset: 03-03-2023 Resolved: 12-05-2024 03-03-2023 Episodic Other fractures (20 sources) Closed fracture of multiple left ribs; 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: [Multiple fractures of ribs, left side, initial encounter for closed fracture] Onset: 06-10-2020 Resolved: 04-29-2021 06-10-2020 Episodic Other hematologic conditions (20 sources) Macrocytosis; 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: [Other specified diseases of blood and blood-forming organs] Onset: 03-03-2023 Resolved: 12-05-2024 03-03-2023 Chronic Other inflammatory condition of skin (7 sources) Pruritus, unspecified; 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: [Unspecified pruritic disorder] Onset: 03-03-2023 Resolved: 12-05-2024 03-03-2023 Episodic Other injuries and conditions due to external causes (20 sources) History of fall; 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: [History of falling] Onset: 04-05-2021 Resolved: 04-29-2021 Episodic Other injuries and conditions due to external causes (1 source) Injury of head; 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: [Head injury, unspecified] Episodic Other lower respiratory disease (20 sources) Dyspnea; 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: [Shortness of breath] Onset: 03-03-2023 03-07-2023 Episodic Other lower respiratory disease (20 sources) Chronic cough; 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: [Cough] Onset: 03-03-2023 03-03-2023 Episodic Other lower respiratory disease (2 sources) Cough; 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: [Cough] Episodic Other lower respiratory disease (20 sources) Hypoxemia; 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: [Hypoxemia] Onset: 03-03-2023 03-03-2023 Episodic Other lower respiratory disease (20 sources) Dyspnea on exertion; 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: [Dyspnea, unspecified] Onset: 06-04-2022 Resolved: 02-27-2023 Episodic Other lower respiratory disease (2 sources) Personal history of other diseases of the respiratory system; 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: [Personal history of other diseases of the respiratory system] Onset: 02-22-2024 Episodic Other nervous system disorders (20 sources) Metabolic encephalopathy; 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: [Metabolic encephalopathy] Onset: 04-06-2021 Resolved: 12-05-2024 04-06-2021 Chronic Other nervous system disorders (20 sources) Tremor; 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: [Abnormal involuntary movements] Onset: 03-03-2023 Resolved: 12-05-2024 03-03-2023 Episodic Other nervous system disorders (20 sources) Abnormal gait; 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: [Abnormality of gait] Onset: 03-03-2023 03-03-2023 Episodic Other nervous system disorders (1 source) Unspecified abnormalities of gait and mobility; 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: [Unspecified abnormalities of gait and mobility] Onset: 05-04-2022 Episodic Other non-traumatic joint disorders (20 sources) Hip pain; 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: [Pain in right hip] Onset: 10-18-2016 Resolved: 05-28-2024 10-18-2016 Episodic Other non-traumatic joint disorders (3 sources) Shoulder pain; 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: [Pain in joint, shoulder region] Episodic Other non-traumatic joint disorders (4 sources) Pain in right hip joint; 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: [Pain in right hip] Onset: 03-12-2021 04-10-2023 Episodic Other nutritional; endocrine; and metabolic disorders (20 sources) Weight gain; 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: [Abnormal weight gain] Onset: 03-03-2023 Resolved: 04-19-2023 03-03-2023 Episodic Other nutritional; endocrine; and metabolic disorders (3 sources) Weight increased; 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: [Abnormal weight gain] Onset: 03-03-2023 Resolved: 04-19-2023 04-19-2023 Episodic Other skin disorders (20 sources) Mass of wrist; 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: [Localized superficial swelling, mass, or lump] Onset: 03-03-2023 Resolved: 12-05-2024 03-03-2023 Episodic Other skin disorders (2 sources) Ingrowing nail; 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: [Ingrowing nail] Onset: 05-14-2024 Episodic Other skin disorders (2 sources) Xerosis cutis; 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: [Xerosis cutis] Onset: 05-14-2024 Episodic Other skin disorders (2 sources) Nail dystrophy; 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: [Nail dystrophy] Onset: 03-26-2024 Episodic Other upper respiratory infections (5 sources) Upper respiratory infection; 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: [Acute upper respiratory infection, unspecified] Onset: 02-22-2024 02-22-2024 Episodic Parkinson`s disease (7 sources) Atypical Parkinsonism; 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] Onset: 02-27-2024 Resolved: 11-05-2024 04-05-2023 Chronic Residual codes; unclassified (20 sources) Other specified health status; 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: [Other drug allergy] Onset: 04-01-2019 Resolved: 04-29-2021 04-01-2019 Episodic Residual codes; unclassified (20 sources) Insomnia; 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: [Insomnia, unspecified] Onset: 03-03-2023 03-03-2023 Episodic Residual codes; unclassified (3 sources) Personal history of other specified conditions; 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: [History of chest pain] Episodic Residual codes; unclassified (8 sources) Tobacco user; 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: [Tobacco use] Onset: 07-25-2018 07-25-2018 Episodic Residual codes; unclassified (20 sources) Early satiety; 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: [Early satiety] Onset: 03-03-2023 Resolved: 11-05-2024 03-03-2023 Episodic Residual codes; unclassified (20 sources) Tobacco use and exposure - finding; 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: [Tobacco use] Onset: 07-25-2018 07-25-2018 Episodic Residual codes; unclassified (2 sources) Other specified postprocedural states; 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: [Other specified postprocedural states] Onset: 03-30-2016 Episodic Residual codes; unclassified (1 source) Tobacco use; 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: [Tobacco use] Onset: 07-25-2018 Episodic Respiratory failure; insufficiency; arrest (adult) (20 sources) Acute hypoxemic respiratory failure; 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: [Acute respiratory failure with hypoxia] Onset: 02-27-2023 02-27-2023 Episodic Septicemia (except in labor) (20 sources) Sepsis; 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: [Sepsis, unspecified organism] Onset: 04-06-2021 Resolved: 02-27-2023 04-06-2021 Episodic Skin and subcutaneous tissue infections (4 sources) Cellulitis of right toe; 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: [Paronychia of toe] Onset: 11-09-2022 05-14-2024 Episodic Skull and face fractures (20 sources) Closed fracture of facial bone; 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: [Closed fracture of orbital floor] Onset: 06-10-2020 Resolved: 03-07-2023 06-10-2020 Episodic Spondylosis; intervertebral disc disorders; other back problems (20 sources) Neck pain; 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: [Chronic low back pain] Onset: 11-04-2016 11-04-2016 Episodic Substance-related disorders (20 sources) Smoker; 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: [Tobacco use and exposure - finding] Onset: 04-21-2016 Resolved: 05-24-2017 05-24-2017 Chronic Unclassified (20 sources) Cardiovascular stress test abnormal; 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: [Abnormal result of other cardiovascular function study] Onset: 04-21-2016 Resolved: 05-28-2024 04-12-2017 Episodic Unclassified (8 sources) Onset: 03-07-2023 Resolved: 12-05-2024 03-07-2023 NEGATED: Highlighted row has not occurred!Residual codes; unclassified (20 sources) Disease Episodic Results Test Name Value Interpretation Reference Range Facility Orthopedic Visit Reporton Orthopedic Visit Report [facility] [address] [place] [address] OFFICE VISIT Date of Service: 04/17/25 MR#: [id number] Acct: [id number] Name: STEVO ELIZALDE Rep #: [id number] : 1950 Provider: Dr. Deshaun alcaraz MD Age/Sex: 75/M Location: [facility] Status: Signed Intake Vital Signs 04/10/25 15:18 Height 5 ft 7 in Intake Visit Reasons: RIGHT FIBULA Accompanied by: Self Is patient in pain?: Yes Pain scale (1-10): 3 Allergies No Known Allergies Allergy (Verified 04/17/25 09:18) Medications ???Medication ???Instructions ???Recorded ???Confirmed ???Type acetaminophen 500 mg tablet 500 mg PO Q6 PRN pain 04/17/25 History albuterol sulfate 2.5 mg/3 mL mg inhalation DIRECTED 04/17/25 04/17/25 History (0.083 %) solution for nebulization albuterol sulfate 90 mcg/actuation inhalation 04/17/25 04/17/25 His tory aerosol inhaler aspirin 81 mg tablet,delayed 81 mg PO QDAY 04/17/25 04/17/25 Hi story release (Adult Aspirin Regimen) atorvastatin 20 mg tablet 20 mg PO QDAY 04/17/25 04/17/25 Hi story blood-glucose,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,c ont #1 ea 04/17/25 04/17/25 History (FreeStyle Hung 3 [place]) clopidogrel 75 mg tablet 75 mg PO QDAY 04/17/25 04/17/25 Hi story diclofenac sodium 1 % topical gel 2 g topical Q6H PRN 04/17/2503/30 History (Arthritis Pain (diclofenac)) ergocalciferol (vitamin D2) 1,250 1,250 mcg PO QMONTH 04/17/2503/30 History mcg (50,000 unit) capsule famotidine 20 mg tablet 20 mg PO BID 04/17/25 04/17/25 His tory fenofibrate nanocrystallized 145 145 mg PO QDAY 04/17/25 04/17/25 H istory mg tablet fluticasone 500 mcg-salmeterol 50 inhalation 04/17/25 04/17/25 Hist ory mcg/dose blistr powdr for inhalation insulin aspart U-100 100 unit/mL subcut 04/17/25 04/17/25 History (3 mL) subcutaneous pen insulin glargine 100 unit/mL (3 5 unit subcut QAM 04/17/25 5 History mL) subcutaneous pen (Lantus Solostar U-100 Insulin) isosorbide mononitrate 30 mg 30 mg PO QDAY 04/17/25 04/17/25 Hi story tablet,extended release 24 hr loperamide 2 mg capsule 2 mg PO BID PRN 04/17/25 04/17/25 History loratadine 10 mg tablet (Claritin) 10 mg PO QDAY 04/17/25 04/17/25 History multivit with minerals-iron 18 1 tab PO QDAY 04/17/25 04/17/25 Hi story mg-folic ac 400 mcg-vit K 25 mcg tablet (Central-Timothy) paroxetine HCl 20 mg tablet 20 mg PO QDAY 04/17/25 04/17/25 Hi story primidone 50 mg tablet 50 mg PO BID 04/17/25 04/17/25 His tory propranolol 20 mg tablet 20 mg PO BID 04/17/25 04/17/25 His tory sodium bicarbonate 650 mg tablet 1,300 mg PO BID 04/17/25 04/17/25 History tamsulosin 0.4 mg capsule mg PO 04/17/25 04/17/25 History tiotropium bromide 18 mcg capsule 1 cap inhalation QDAY 04/17/25 History with inhalation device (Spiriva with HandiHaler) venlafaxine 37.5 mg tablet mg PO 04/17/25 04/17/25 History Have you fallen in the past year?: Yes PFSH Social History Smoking Status: Former smoker HPI RIGHT FIBULA Details: This documentation accurately reflects the service provided and the decisions made by me, Dr. Deshaun Salcedo MD 04/17/25 0832. Part of today???s visit was documented by [ ], acting as scribe. STEVO ELIZALDE is a 75 year old M here today for right distal fibula fracture. Was recently in the emergency department for this. About 2 weeks ago. He tripped. He has some mild pain in the lateral aspect of the ankle. He was walking on this for a week before he got x-rays. He uses a 4 wheeled walker. He is an [employer] fan. He tried the orthosis boot but it was too big and awkward and heavy for him he is just been walking in shoes. per ED "Patient presenting today with concerns for a right ankle fracture. He had a mechanical fall on Monday, he slipped and twisted his ankle and hit his right knee against something. He did not hit his head, there was no LOC. He lives in an assisted living facility, they did come out and do a x-ray of his right ankle and told him it was broken, he is not sure where. He was not placed in a splint or boot. He was given no follow-up information. He has been walking on his ankle. His daughter came to visit today, he continued to complain of pain to his right knee, they did not do any imaging of his right knee, she became concerned and the facility recommended that she bring him here for evaluation. He otherwise denies any injury." Supplemental Info [facility] Imaging Services [address] [place], [place] [id number] Ankle min 3 Views MR#: [id number] Acct: [id number] Name: STEVO ELIZALDE Ana Rosa Rep #: [id number] : (more content not included)... Normal [facility] CBC-Complete Blood Cnt No Di ffon 04-16-2025 Erythrocyte distribution width (RBC) [Ratio] 13.2 % Normal 11.6-14.6 [facility] Comment on above: Order Comment: 111 Performed By: #### L 100.0500 ####[facility] [id number] [place], [place], [phone] Hematocrit (Bld) [Volume fraction] 29.1 % Low 40-54 [facility] Comment on above: Order Comment: 111 Performed By: #### L 100.0500 ####[facility] [id number] [facility] [place], [address] Hemoglobin (Bld) [Mass/Vol] 9.8 g/dL Low 13.0-16.5 [facility] Comment on above: Order Comment: 111 Performed By: #### L 100.0500 ####[facility] [id number] [facility] [place], [address]( MCH (RBC) [Entitic mass] 32.5 pg High 27.0-32.0 [facility] Comment on above: Order Comment: 111 Performed By: #### L 100.0500 ####[facility] [id number] [place], [address] MCHC (RBC) [Mass/Vol] 33.7 g/dL Normal 32-36 [facility] Comment on above: Order Comment: 111 Performed By: #### L 100.0500 ####[facility] [id number] [place], [address] MCV (RBC) [Entitic vol] 96.4 fL High 80-94 [facility] Comment on above: Order Comment: 111 Performed By: #### L 100.0500 ####[facility] [id number] [place], [address] Platelet mean volume (Bld) [Entitic vol] 11.0 fL Normal 6.2-12.0 [facility] Comment on above: Order Comment: 111 Performed By: #### L 100.0500 ####[facility] [address] [place], [address] Platelets (Bld) [#/Vol] 302 10*3/uL Normal 150-450 [facility] Comment on above: Order Comment: 111 Performed By: #### L 100.0500 ####[facility] [address] [place], [address] RBC (Bld) [#/Vol] 3.02 10*6/uL Low 4.6-6.2 [facility] Comment on above: Order Comment: 111 Performed By: #### L 100.0500 ####[facility] [address] [place], [address] RDW SD 46.5 fl High 35.1-43.9 [facility] Comment on above: Order Comment: 111 Performed By: #### L 100.0500 ####[facility] [address] [place], [place], [phone] WBC (Bld) [#/Vol] 8.3 10*3/uL Normal 4.4-11.0 [facility] Comment on above: Order Comment: 111 Performed By: #### L 100.0500 ####[facility] [address] [place], [place], [id number] Erythrocyte distribution wid th ratioOrdered By: Manohar Pablo on 04-16-2025 Erythrocyte distribution width (RBC) [Ratio] 13.2 % 11.6-14.6 [facility] Erythrocyte distribution wid th standard deviationOrdered By: Manohar Pablo on 04-16-2025 Erythrocyte distribution width (RBC) [Ratio] 46.5 fl High 35.1-43.9 [facility] Hematocrit Auto (Bld) [Volum e fraction]Ordered By: Manohar Pablo on 04-16-2025 Hematocrit (Bld) [Volume fraction] 29.1 % Low 40-54 [facility] Hemoglobin measurementOrdere d By: Manohar Pablo on 04-16-2025 Hemoglobin (Bld) [Mass/Vol] 9.8 g/dL Low 13.0-16.5 [facility] MCV (mean corpuscular volume ) determinationOrdered By: Manohar Pablo on 04-16-2025 MCV (RBC) [Entitic vol] 96.4 fL High 80-94 [facility] Mean corpuscular hemoglobin (MCH) determinationOrdered By: Manohar Pablo 04-16-2025 MCH (RBC) [Entitic mass] 32.5 pg High 27.0-32.0 [facility] Mean corpuscular hemoglobin concentration (MCHC) determinationOrdered By: Manohar Pablo 04-16-2025 MCHC (RBC) [Mass/Vol] 33.7 g/dL 32-36 [facility] Mean platelet volume determi nationOrdered By: Manohar Pablo on 04-16-2025 Platelet mean volume (Bld) [Entitic vol] 11.0 fL 6.2-12.0 [facility] Platelet countOrdered By: Liane Pablo on 04-16-2025 Platelets (Bld) [#/Vol] 302 10*3/uL 150-450 [facility] RBC Auto (Bld) [#/Vol]Ordere d By: Manohar Pablo on 04-16-2025 RBC (Bld) [#/Vol] 3.02 10*6/uL Low 4.6-6.2 [facility] White blood cell (WBC) count Ordered By: Manohar aPblo on 04-16-2025 WBC (Bld) [#/Vol] 8.3 10*3/uL 4.4-11.0 [facility] Ankle min 3 Viewson 04-10-20 25 Ankle min [address] [facility] Imaging Services [address] [place] [address] Ankle min 3 Views MR#: [id number] Acct: [id number] Name: STEVO ELIZALDE R Rep #: [id number] : 1950 M 75 From: Bib Mcdowell PCP: PHYLLIS MAE Status: REG ER Study: Ankle min 3 Views Date of Exam: 04/10/25 Exam# [id number] Ordering Dr: Rakel Landers PROCEDURE: ANKLE MIN 3 VIEWS 04/10/2025 REASON FOR EXAM: PAIN, FALL TECHNIQUE: 3 views of the right ankle COMPARISON: None. RAD/Ankle min 3 Views IMPRESSION: An oblique intra-articular fracture of the distal right fibula is seen, mildly displaced, and also involving a portion of the lateral malleolus. Minimal degenerative changes of the ankle joint are otherwise noted. Mild posterior and inferior calcaneal spurring is seen. Reading Location: [address] CC: PHYLLIS MAE; ALLAN Marquez Sat Instructor: Signed Normal [facility] Emergency Department Summary on 04-10-2025 Emergency Department Summary [facility] Medical Records Department [address] [place] [address] Emergency Department Summary 04/10/25 MR#: [id number] Acct: [id number] Name: STEVO ELIZALDE R Rep #: [id number] : 1950 75 From: Rakel LEMUS PCP: PHYLLIS MAE Status:DEP ER Location: ED HPI History of Present Illness Chief Complaint: Lower Extremity Injury Narrative Narrative: Patient presenting today with concerns for a right ankle fracture. He had a mechanical fall on Monday, he slipped and twisted his ankle and hit his right knee against something. He did not hit his head, there was no LOC. He lives in an assisted living facility, they did come out and do a x- ray of his right ankle and told him it was broken, he is not sure where. He was not placed in a splint or boot. He was given no follow-up information. He has been walking on his ankle. His daughter came to visit today, he continued to complain of pain to his right knee, they did not do any imaging of his right knee, she became concerned and the facility recommended that she bring him here for evaluation. He otherwise denies any injury. PFSH PFSH Allergy/AdvReac Type Severity Reaction Status Date / Time No Known Allergies Allergy Verified 04/10/25 15:36 Social History Smoking Status: Former smoker ROS ROS ED Constitutional Constitutional ED: Denies chills or fever(s) Cardiovascular Cardiovascular: Denies chest pain Respiratory/Chest Respiratory/Chest: Denies dyspnea Gastrointestinal Gastrointestinal: Denies abdominal pain, nausea or vomiting Genitourinary Genitourinary ED: Denies dysuria, hematuria or urinary urgency Musculoskeletal Musculoskeletal: Reports arthralgias Integumentary Denies Abrasions Neurologic Neurologic: Denies paresthesias EXAM Physical Exam Const Vital Signs: 04/10/25 15:18 04/10/25 15:32 04/10/25 15:33 Temperature 97.2 F L Temperature Source Temporal Pulse Rate 72 62 Respiratory Rate 16 16 Respiratory Effort Normal Respiratory Pattern Normal Blood Pressure 72/53 L 101/61 Blood Pressure Mean 59 74 Pulse Ox 98 97 Oxygen Delivery Method Room Air Room Air 04/10/25 16:58 04/10/25 17:27 Temperature 98.0 F Temperature Source Pulse Rate 64 62 Respiratory Rate 16 17 Respiratory Effort Respiratory Pattern Blood Pressure 142/68 H 151/66 H Blood Pressure Mean 92 94 Pulse Ox 98 98 Oxygen Delivery Method Room Air Positive well nourished, well developed and no apparent distress General Appearance ED: well developed HEENT Reports normocephalic and head/scalp atraumatic Mouth ED: Yes moist mucous membranes normal Eyes PERRL and EOMs intact bilaterally Neck full ROM and supple Chest Wall inspection of chest normal Resp normal respiratory effort and clear to auscultation bilaterally Cardio regular rate and regular rhythm Back/Spine normal ROM and normal to inspection Extremity normal to inspection and full ROM Extremity Narrative: No joint effusion, full range of motion to the right knee, no laxity with varus or valgus stress, negative anterior drawer test. Pain to palpation to the medial aspect of the right knee. Pain to the right lateral malleolus with mild bruising. No significant edema. No tenderness to the right foot, no proximal fibular tenderness. Right DP pulse 2+, good cap refill, sensation intact. Neuro oriented x3, CN's II-XII intact bilaterally, moves all extremities, no focal motor deficits and no sensory deficits noted Sensorium / Orientation: awake and alert Psych mental status grossly normal and thought process normal Skin no rashes or lesions noted and no wounds Physical Exam Const Vital Signs: 04/10/25 15:18 04/10/25 15:32 04/10/25 15:33 Temperature 97.2 F L Temperature Source Temporal Pulse Rate 72 62 Respiratory Rate 16 16 Respiratory Effort Normal Respiratory Pattern Normal Blood Pressure 72/53 L 101/61 Blood Pressure Mean 59 74 Pulse Ox 98 97 Oxygen Delivery Method Room Air Room Air 04/10/25 16:58 04/10/25 17:27 Temperature 98.0 F Temperature Source Pulse Rate 64 62 Respiratory Rate 16 17 Respiratory Effort Respiratory Pattern Blood Pressure 142/68 H 151/66 H Blood Pressure Mean 92 94 Pulse Ox 98 98 Oxygen Delivery Method Room Air MDM MDM MDM Narrative Medical decision making narrative: Patient presenting today due to concerns for right knee pain and a right ankle fracture. He had a mechanical fall on Monday causing the right ankle and right knee injury. The facility did x-ray his right ankle and told him it was broken but he was not placed in any splint or boot and has no fol (more content not included)... Normal [facility] Knee 3 Viewson 04-10-2025 [address] [facility] Imaging Services [address] [place] [address] Knee 3 Views MR#: [id number] Acct: [id number] Name: STEVO ELIZALDE Rep #: [id number] : 1950 M 75 From: Morris Pope MD PCP: PHYLLIS MAE Status: REG ER Study: Knee 3 Views Date of Exam: 04/10/25 Exam# [id number] Ordering Dr: Rakel Landers PROCEDURE: KNEE 3 VIEWS 04/10/2025 REASON FOR EXAM: PAIN, FALL TECHNIQUE: Four views of the right knee were performed. COMPARISON: None. FINDINGS: There is no evidence of fracture or dislocation. The patellofemoral joint and the medial and lateral joint space compartments of the knee are maintained. There is no knee joint effusion. There is enthesopathy of the patella. There is chondrocalcinosis of the medial and lateral menisci. There are vascular calcifications in the distal thigh. RAD/Knee 3 Views IMPRESSION: 1. No evidence of acute injury. 2. Chondrocalcinosis consistent with CPPD. 3. Other findings as noted. Reading Location: [place] [address] CC: PHYLLIS MAE; ALLAN Marquez Sat Instructor: Signed Normal [facility] Urinalysis, Completeon 02-24 BACTERIA 0 SEEN Normal None Seen [facility] Comment on above: Order Comment: UNKNO WN METHOD OF COLLECTIONCLEAN CATCH Performed By: #### L 400.0001 ####[facility] [address] [place], [address] EPI,SQUAMOUS 0 SEEN Normal 0-5 [facility] Comment on above: Order Comment: UNKNO WN METHOD OF COLLECTIONCLEAN CATCH Performed By: #### L 400.0001 ####[facility] [address] [place], [address] Mucus Ql (Urine sed) 0 SEEN Normal [facility] Comment on above: Order Comment: UNKNO WN METHOD OF COLLECTIONCLEAN CATCH Performed By: #### L 400.0001 ####[facility] [address] [place], [address] RBC 0 SEEN Normal 0-5 [facility] Comment on above: Order Comment: UNKNO WN METHOD OF COLLECTIONCLEAN CATCH Performed By: #### L 400.0001 ####[facility] [address] [place], [address] WBC 0 SEEN Normal 0-5 [facility] Comment on above: Order Comment: UNKNO WN METHOD OF COLLECTIONCLEAN CATCH Performed By: #### L 400.0001 ####[facility] [address] [place], [address] Bilirubin Test strip Ql (U)O rdered By: Sharmila Arteaga on 02-23-2025 Bilirubin Ql (U) Negative Negative [facility] Ketones Test strip Ql (U)Ord ered By: Sharmila Arteaga on 02-23-2025 Ketones Ql (U) Negative Negative [facility] Microscopic analysis of urin e for red blood cells (RBC)Ordered By: Sharmila Arteaga on 02-23-2025 Microscopic analysis of urine for red blood cells (RBC) 0 SEEN /hpf 0-5 [facility] Mucus LM Ql (Urine sed)Order ed By: Sharmila Arteaga on 02-23-2025 Mucus Ql (Urine sed) 0 SEEN /hpf [facility] Nitrite Test strip Ql (U)Ord ered By: Sharmila Arteaga on 02-23-2025 Nitrite Ql (U) Negative Negative [facility] Protein Test strip Ql (U)Ord ered By: Sharmila Arteaga on 02-23-2025 Protein Ql (U) 100 mg/dl High Negative [facility] Squamous epithelial cells de tection in urine sediment by light microscopyOrdered By: Sharmila Arteaga on 02-23-2025 Epithelial cells.squamous LM Ql (Urine sed) 0 SEEN /hpf 0-5 [facility] Urine clarityOrdered By: James Arteaga on 02-23-2025 Clarity (U) Clear Clear [facility] Urine color determinationOrd ered By: Sharmila Arteaga on 02-23-2025 Color (U) Yellow Yellow [facility] Urine glucose detectionOrder ed By: Sharmila Arteaga on 02-23-2025 Glucose Ql (U) 250 mg/dl High Normal [facility] Urine leukocyte esterase det ection by dipstickOrdered By: Sharmila Arteaga on 02-23-2025 Leukocyte esterase Test strip Ql (U) Negative Negative [facility] Urine pHOrdered By: Sharmila Morgan udla on 02-23-2025 pH (U) 6.0 [pH] 5.0 - 8.0 [facility] Urine sediment bacteria coun t by microscopy (number/high power field)Ordered By: Sharmila Arteaga on 02-23-2025 Bacteria LM.HPF (Urine sed) [#/Area] 0 /[HPF] None Seen [facility] Urine specific gravity measu rementOrdered By: Sharmila Arteaga on 02-23-2025 Specific gravity (U) [Rel density] 1.015 1.002-1.030 [facility] Urine urobilinogen measureme ntOrdered By: Sharmila Arteaga on 02-23-2025 Urobilinogen Ql (U) Normal mg/dl Normal [facility] White blood cell countOrdere d By: Sharmila Arteaga on 02-23-2025 White blood cell count 0 SEEN /hpf 0-5 [facility] Anion gap in Serum or Plasma Ordered By: Manohar Pablo on 02-19-2025 Anion gap [Moles/Vol] 11 mmol/L 5-15 [facility] BUN/creatinine ratioOrdered By: Manohar Pablo on 02-19-2025 Urea nitrogen/Creatinine [Mass ratio] 19.4 mg/mg 10-20 [facility] CBC-Complete Blood Cnt No Di ffon 02-19-2025 Erythrocyte distribution width (RBC) [Ratio] 12.7 % Normal 11.6-14.6 [facility] Comment on above: Performed By: #### L 100.0500, L500.3600 ####[facility] [address] [place], [place], [id number] Hematocrit (Bld) [Volume fraction] 26.7 % Low 40-54 [facility] Comment on above: Performed By: #### L 100.0500, L500.3600 ####[facility] [address] [place], [address] Hemoglobin (Bld) [Mass/Vol] 9.2 g/dL Low 13.0-16.5 [facility] Comment on above: Performed By: #### L 100.0500, L500.3600 ####[facility] [address] [place], [address] MCH (RBC) [Entitic mass] 33.1 pg High 27.0-32.0 [facility] Comment on above: Performed By: #### L 100.0500, L500.3600 ####[facility] [address] [place], [address] MCHC (RBC) [Mass/Vol] 34.5 g/dL Normal 32-36 [facility] Comment on above: Performed By: #### L 100.0500, L500.3600 ####[facility] [address] [place], [address] MCV (RBC) [Entitic vol] 96.0 fL High 80-94 [facility] Comment on above: Performed By: #### L 100.0500, L500.3600 ####[facility] [address] [place], [address] Platelet mean volume (Bld) [Entitic vol] 11.7 fL Normal 6.2-12.0 [facility] Comment on above: Performed By: #### L 100.0500, L500.3600 ####[facility] [address] [place], [address] Platelets (Bld) [#/Vol] 253 10*3/uL Normal 150-450 [facility] Comment on above: Performed By: #### L 100.0500, L500.3600 ####[facility] [address] [place], [address] RBC (Bld) [#/Vol] 2.78 10*6/uL Low 4.6-6.2 [facility] Comment on above: Performed By: #### L 100.0500, L500.3600 ####[facility] [address] [place], [address] RDW SD 44.9 fl High 35.1-43.9 [facility] Comment on above: Performed By: #### L 100.0500, L500.3600 ####[facility] [address] [place], [address] WBC (Bld) [#/Vol] 8.5 10*3/uL Normal 4.4-11.0 [facility] Comment on above: Performed By: #### L 100.0500, L500.3600 ####[facility] [address] [place], [address] Carbon dioxide, total [Moles /volume] in Central venous bloodOrdered By: Manohar Pablo on 02-19-2025 CO2 [Moles/Vol] 19.7 mmol/L Low 21.0-32.0 [facility] Chloride assayOrdered By: Liane Pbalo on 02-19-2025 Chloride [Moles/Vol] 100 mmol/L 98-108 [facility] Erythrocyte distribution wid th ratioOrdered By: Manohar Pablo on 02-19-2025 Erythrocyte distribution width (RBC) [Ratio] 12.7 % 11.6-14.6 [facility] Erythrocyte distribution wid th standard deviationOrdered By: Manohar Pablo on 02-19-2025 Erythrocyte distribution width (RBC) [Ratio] 44.9 fl High 35.1-43.9 [facility] Glomerular filtration rate ( GFR) estimation/1.73 sq m using serum, plasma, or whole bOrdered By: Manohar Pablo on 02-19-2025 GFR/1.73 sq M.predicted among non-blacks MDRD (S/P/Bld) [Vol rate/Area] 39 mL/min/{1.73_m2} Low >60 [facility] Comment on above: mL/min/1.73m2 CKD-EP I Creatinine Equation (2020) Hematocrit Auto (Bld) [Volum e fraction]Ordered By: Manohar Pablo on 02-19-2025 Hematocrit (Bld) [Volume fraction] 26.7 % Low 40-54 [facility] Hemoglobin measurementOrdere d By: Manohar Pablo on 02-19-2025 Hemoglobin (Bld) [Mass/Vol] 9.2 g/dL Low 13.0-16.5 [facility] MCV (mean corpuscular volume ) determinationOrdered By: Manohar Pablo on 02-19-2025 MCV (RBC) [Entitic vol] 96.0 fL High 80-94 [facility] Mean corpuscular hemoglobin (MCH) determinationOrdered By: Manohar Pablo on 02-19-2025 MCH (RBC) [Entitic mass] 33.1 pg High 27.0-32.0 [facility] Mean corpuscular hemoglobin concentration (MCHC) determinationOrdered By: Manohar Pablo on 02-19-2025 MCHC (RBC) [Mass/Vol] 34.5 g/dL 32-36 [facility] Mean platelet volume determi nationOrdered By: Manohar Pablo on 02-19-2025 Platelet mean volume (Bld) [Entitic vol] 11.7 fL 6.2-12.0 [facility] Platelet countOrdered By: Liane Pablo on 02-19-2025 Platelets (Bld) [#/Vol] 253 10*3/uL 150-450 [facility] Potassium measurement (mass/ volume)Ordered By: Manohar Pablo on 02-19-2025 Potassium (Unsp spec) [Mass/Vol] 4.3 mmol/L 3.3-5.1 [facility] RBC Auto (Bld) [#/Vol]Ordere d By: Manohar Pablo on 02-19-2025 RBC (Bld) [#/Vol] 2.78 10*6/uL Low 4.6-6.2 [facility] Renal Profileon 02-19-2025 Albumin [Mass/Vol] 3.1 g/dL Low 3.4-4.8 [facility] Comment on above: Performed By: #### L 100.0500, L500.3600 ####[facility] [address] [place], [address] BUN/CRE 19.4 RATIO Normal 10-20 [facility] Comment on above: Performed By: #### L 100.0500, L500.3600 ####[facility] [address] [place], [address] Calcium [Mass/Vol] 8.7 mg/dL Normal 7.6-11.0 [facility] Comment on above: Performed By: #### L 100.0500, L500.3600 ####[facility] [address] [place], [address] Chloride [Moles/Vol] 100 mmol/L Normal 98-108 [facility] Comment on above: Performed By: #### L 100.0500, L500.3600 ####[facility] [address] [place], [address] CO2 [Moles/Vol] 19.7 mmol/L Low 21.0-32.0 [facility] Comment on above: Performed By: #### L 100.0500, L500.3600 ####[facility] [address] [place], [address] Creatinine [Mass/Vol] 1.78 mg/dL High 0.70-1.20 [facility] Comment on above: Performed By: #### L 100.0500, L500.3600 ####[facility] [address] [place], [address] GAP 11 Normal 5-15 [facility] Comment on above: Performed By: #### L 100.0500, L500.3600 ####[facility] [address] [place], [address] GFR/1.73 sq M.predicted among non-blacks MDRD (S/P/Bld) [Vol rate/Area] 39 mL/min/{1.73_m2} Low >60 [facility] Comment on above: Result Comment: mL/m in/1.73m2 CKD-EPI Creatinine Equation (2020) Performed By: #### L 100.0500, L500.3600 ####[facility] [address] [place], [address] Glucose [Mass/Vol] 324 mg/dL High 70-99 [facility] Comment on above: Performed By: #### L 100.0500, L500.3600 ####[facility] [address] [place], [address] Phosphate [Mass/Vol] 3.1 mg/dL Normal 2.7-4.5 [facility] Comment on above: Performed By: #### L 100.0500, L500.3600 ####[facility] [address] [place], [address] Potassium [Moles/Vol] 4.3 mmol/L Normal 3.3-5.1 [facility] Comment on above: Performed By: #### L 100.0500, L500.3600 ####[facility] [address] [place], [address] Sodium [Moles/Vol] 131 mmol/L Low 133-145 [facility] Comment on above: Performed By: #### L 100.0500, L500.3600 ####[facility] [address] [place], [address] Urea nitrogen [Mass/Vol] 35 mg/dL High 4-19 [facility] Comment on above: Performed By: #### L 100.0500, L500.3600 ####[facility] [address] [place], [address] Serum creatinine measurement (mass/volume)Ordered By: Manohar Pablo on 02-19-2025 Creatinine [Mass/Vol] 1.78 mg/dL High 0.70-1.20 [facility] Serum glucose measurement (m ass/volume)Ordered By: Manohar Pablo on 02-19-2025 Glucose [Mass/Vol] 324 mg/dL High 70-99 [facility] Serum or plasma albumin quynh urement (mass/volume)Ordered By: Manohar Pablo on 02-19-2025 Albumin [Mass/Vol] 3.1 g/dL Low 3.4-4.8 [facility] Serum or plasma calcium quynh urement (mass/volume)Ordered By: Manohar Pablo on 02-19-2025 Calcium [Mass/Vol] 8.7 mg/dL 7.6-11.0 [facility] Serum or plasma urea nitroge n measurement (mass/volume)Ordered By: Manohar Pablo on 02-19-2025 Urea nitrogen [Mass/Vol] 35 mg/dL High 4-19 [facility] Sodium levelOrdered By: Caity Pablo on 02-19-2025 Sodium [Moles/Vol] 131 mmol/L Low 133-145 [facility] White blood cell (WBC) count Ordered By: Manohar Pablo on 02-19-2025 WBC (Bld) [#/Vol] 8.5 10*3/uL 4.4-11.0 [facility] Anion gap in Serum or Plasma Ordered By: Sharmila Arteaga on 01-27-2025 Anion gap [Moles/Vol] 12 mmol/L 5-15 [facility] BUN/creatinine ratioOrdered By: Sharmila Arteaga on 01-27-2025 Urea nitrogen/Creatinine [Mass ratio] 18.5 mg/mg 10-20 [facility] Bilirubin, totalOrdered By: Sharmila Arteaga on 01-27-2025 Bilirubin [Mass/Vol] mg/dL 0.00-1.30 [facility] CBC-Complete Blood Cnt No Di ffon 01-27-2025 Erythrocyte distribution width (RBC) [Ratio] 13.4 % Normal 11.6-14.6 [facility] Comment on above: Order Comment: 111 Performed By: #### L 501.9928, L503.0106, L500.4100, L506.1001, L501.9520, L501.5200, L500.4050, L100.0500 ####[facility] [address] [place], [address] Hematocrit (Bld) [Volume fraction] 31.4 % Low 40-54 [facility] Comment on above: Order Comment: 111 Performed By: #### L 501.9985, L503.0106, L500.4100, L506.1001, L501.9520, L501.5200, L500.4050, L100.0500 ####[facility] [address] [facility] [place], [address] Hemoglobin (Bld) [Mass/Vol] 10.7 g/dL Low 13.0-16.5 [facility] Comment on above: Order Comment: 111 Performed By: #### L 501.9985, L503.0106, L500.4100, L506.1001, L501.9520, L501.5200, L500.4050, L100.0500 ####[facility] [address] [facility] [place], [address] MCH (RBC) [Entitic mass] 33.2 pg High 27.0-32.0 [facility] Comment on above: Order Comment: 111 Performed By: #### L 501.9985, L503.0106, L500.4100, L506.1001, L501.9520, L501.5200, L500.4050, L100.0500 ####[facility] [address] [facility] [place], [address] MCHC (RBC) [Mass/Vol] 34.1 g/dL Normal 32-36 [facility] Comment on above: Order Comment: 111 Performed By: #### L 501.9985, L503.0106, L500.4100, L506.1001, L501.9520, L501.5200, L500.4050, L100.0500 ####[facility] [address] [place], [address] MCV (RBC) [Entitic vol] 97.5 fL High 80-94 [facility] Comment on above: Order Comment: 111 Performed By: #### L 501.9985, L503.0106, L500.4100, L506.1001, L501.9520, L501.5200, L500.4050, L100.0500 ####[facility] [address] [place], [address] Platelet mean volume (Bld) [Entitic vol] 11.5 fL Normal 6.2-12.0 [facility] Comment on above: Order Comment: 111 Performed By: #### L 501.9985, L503.0106, L500.4100, L506.1001, L501.9520, L501.5200, L500.4050, L100.0500 ####[facility] [address] [place], [address] Platelets (Bld) [#/Vol] 339 10*3/uL Normal 150-450 [facility] Comment on above: Order Comment: 111 Performed By: #### L 501.9985, L503.0106, L500.4100, L506.1001, L501.9520, L501.5200, L500.4050, L100.0500 ####[facility] [address] [place], [address] RBC (Bld) [#/Vol] 3.22 10*6/uL Low 4.6-6.2 [facility] Comment on above: Order Comment: 111 Performed By: #### L 501.9985, L503.0106, L500.4100, L506.1001, L501.9520, L501.5200, L500.4050, L100.0500 ####[facility] [address] [place], [place], [id number] RDW SD 47.8 fl High 35.1-43.9 [facility] [facility] Comment on above: Order Comment: 111 Performed By: #### L 501.9985, L503.0106, L500.4100, L506.1001, L501.9520, L501.5200, L500.4050, L100.0500 ####[facility] [address] [place], [place], [id number] WBC (Bld) [#/Vol] 7.4 10*3/uL Normal 4.4-11.0 [facility] Comment on above: Order Comment: 111 Performed By: #### L 501.9985, L503.0106, L500.4100, L506.1001, L501.9520, L501.5200, L500.4050, L100.0500 ####[facility] [address] [place], [place], [id number] Calculated very low density lipoprotein (VLDL) cholesterol measurementOrdered By: Sharmila Arteaga on 01-27-2025 Calculated very low density lipoprotein (VLDL) cholesterol measurement 51 mg/dL High 5-40 [facility] VLDL Cholesterol 51 mg/dL High 5-40 [facility] Carbon dioxide, total [Moles /volume] in Central venous bloodOrdered By: Sharmila Arteaga on 01-27-2025 CO2 [Moles/Vol] 17.6 mmol/L Low 21.0-32.0 [facility] Chloride assayOrdered By: Boom Arteaga on 01-27-2025 Chloride [Moles/Vol] 105 mmol/L 98-108 [facility] Comprehensive Metabolic Prof ilon 01-27-2025 Albumin [Mass/Vol] 3.5 g/dL Normal 3.4-4.8 [facility] Comment on above: Order Comment: 111 Performed By: #### L 501.9985, L503.0106, L500.4100, L506.1001, L501.9520, L501.5200, L500.4050, L100.0500 ####[facility] [address] [place], [address] Albumin/Globulin [Mass ratio] 1.3 {ratio} Normal 0.9-2.4 [facility] Comment on above: Order Comment: 111 Performed By: #### L 501.9985, L503.0106, L500.4100, L506.1001, L501.9520, L501.5200, L500.4050, L100.0500 ####[facility] [address] [place], [address] ALK PHOS 44 U/L Normal 40-129 [facility] Comment on above: Order Comment: 111 Performed By: #### L 501.9985, L503.0106, L500.4100, L506.1001, L501.9520, L501.5200, L500.4050, L100.0500 ####[facility] [address] [place], [address] ALT [Catalytic activity/Vol] 17 U/L Normal <=46 [facility] Comment on above: Order Comment: 111 Performed By: #### L 501.9985, L503.0106, L500.4100, L506.1001, L501.9520, L501.5200, L500.4050, L100.0500 ####[facility] [address] [place], [address] AST [Catalytic activity/Vol] 20 U/L Normal <=37 [facility] Comment on above: Order Comment: 111 Performed By: #### L 501.9985, L503.0106, L500.4100, L506.1001, L501.9520, L501.5200, L500.4050, L100.0500 ####[facility] [address] [place], [address] BUN/CRE 18.5 RATIO Normal 10-20 [facility] Comment on above: Order Comment: 111 Performed By: #### L 501.9985, L503.0106, L500.4100, L506.1001, L501.9520, L501.5200, L500.4050, L100.0500 ####[facility] [address] [place], [address] Calcium [Mass/Vol] 9.5 mg/dL Normal 7.6-11.0 [facility] Comment on above: Order Comment: 111 Performed By: #### L 501.9985, L503.0106, L500.4100, L506.1001, L501.9520, L501.5200, L500.4050, L100.0500 ####[facility] [address] [place], [address] Chloride [Moles/Vol] 105 mmol/L Normal 98-108 [facility] Comment on above: Order Comment: 111 Performed By: #### L 501.9985, L503.0106, L500.4100, L506.1001, L501.9520, L501.5200, L500.4050, L100.0500 ####[facility] [address] [place], [address] CO2 [Moles/Vol] 17.6 mmol/L Low 21.0-32.0 [facility] Comment on above: Order Comment: 111 Performed By: #### L 501.9985, L503.0106, L500.4100, L506.1001, L501.9520, L501.5200, L500.4050, L100.0500 ####[facility] [address] [place], [address] Creatinine [Mass/Vol] 2.20 mg/dL High 0.70-1.20 [facility] Comment on above: Order Comment: 111 Performed By: #### L 501.9985, L503.0106, L500.4100, L506.1001, L501.9520, L501.5200, L500.4050, L100.0500 ####[facility] [address] [place], [address] GAP 12 Normal 5-15 [facility] Comment on above: Order Comment: 111 Performed By: #### L 501.9985, L503.0106, L500.4100, L506.1001, L501.9520, L501.5200, L500.4050, L100.0500 ####[facility] [address] [place], [address] GFR/1.73 sq M.predicted among non-blacks MDRD (S/P/Bld) [Vol rate/Area] 30 mL/min/{1.73_m2} Low >60 [facility] Comment on above: Order Comment: 111 Result Comment: mL/m in/1.73m2 CKD-EPI Creatinine Equation (2020) Performed By: #### L 501.9985, L503.0106, L500.4100, L506.1001, L501.9520, L501.5200, L500.4050, L100.0500 ####[facility] [address] [place], [address] Globulin (S) [Mass/Vol] 2.7 g/dL Normal 2.2-4.2 [facility] Comment on above: Order Comment: 111 Performed By: #### L 501.9985, L503.0106, L500.4100, L506.1001, L501.9520, L501.5200, L500.4050, L100.0500 ####[facility] [address] [place], [address] Glucose [Mass/Vol] 258 mg/dL High 70-99 [facility] Comment on above: Order Comment: 111 Performed By: #### L 501.9985, L503.0106, L500.4100, L506.1001, L501.9520, L501.5200, L500.4050, L100.0500 ####[facility] [address] [place], [address] Potassium [Moles/Vol] 5.1 mmol/L Normal 3.3-5.1 [facility] Comment on above: Order Comment: 111 Performed By: #### L 501.9985, L503.0106, L500.4100, L506.1001, L501.9520, L501.5200, L500.4050, L100.0500 ####[facility] [address] [place], [address] Sodium [Moles/Vol] 135 mmol/L Normal 133-145 [facility] Comment on above: Order Comment: 111 Performed By: #### L 501.9985, L503.0106, L500.4100, L506.1001, L501.9520, L501.5200, L500.4050, L100.0500 ####[facility] [address] [place], [address] T BILI < 0.15 Normal 0.00-1.30 [facility] Comment on above: Order Comment: 111 Performed By: #### L 501.9985, L503.0106, L500.4100, L506.1001, L501.9520, L501.5200, L500.4050, L100.0500 ####[facility] [address] [place], [address] T PROT 6.3 g/dL Normal 5.9-8.4 [facility] Comment on above: Order Comment: 111 Performed By: #### L 501.9985, L503.0106, L500.4100, L506.1001, L501.9520, L501.5200, L500.4050, L100.0500 ####[facility] [address] [place], [place], [id number] Urea nitrogen [Mass/Vol] 41 mg/dL High 4-19 [facility] Comment on above: Order Comment: 111 Performed By: #### L 501.9985, L503.0106, L500.4100, L506.1001, L501.9520, L501.5200, L500.4050, L100.0500 ####[facility] [address] [place], [address] Erythrocyte distribution wid th (RBC) [Ratio]Ordered By: Sharmila Arteaga on 01-27-2025 Erythrocyte distribution width (RBC) [Entitic vol] 47.8 fL High 35.1-43.9 [facility] Erythrocyte distribution wid th ratioOrdered By: Sharmila Arteaga on 01-27-2025 Erythrocyte distribution width (RBC) [Ratio] 13.4 % 11.6-14.6 [facility] Erythrocyte distribution wid th standard deviationOrdered By: Sharmila Arteaga on 01-27-2025 Erythrocyte distribution width (RBC) [Ratio] 47.8 fl High 35.1-43.9 [facility] GFR/1.73 sq M.predicted roxann g non-blacks MDRD (S/P/Bld) [Vol rate/Area]Ordered By: Sharmila Arteaga on 01-27-2025 Estimated GFR (MDRD) Non-Af Amer 30 Low >60 [facility] Comment on above: mL/min/1.73m2 CKD-EP I Creatinine Equation (2020) Glomerular filtration rate ( GFR) estimation/1.73 sq m using serum, plasma, or whole bOrdered By: Sharmila Arteaga on 01-27-2025 GFR/1.73 sq M.predicted among non-blacks MDRD (S/P/Bld) [Vol rate/Area] 30 mL/min/{1.73_m2} Low >60 [facility] Comment on above: mL/min/1.73m2 CKD-EP I Creatinine Equation (2020) Hematocrit Auto (Bld) [Volum e fraction]Ordered By: Sharmila Arteaga on 01-27-2025 Hematocrit (Bld) [Volume fraction] 31.4 % Low 40-54 [facility] Hemoglobin A1con 01-27-2025 HbA1c (Bld) [Mass fraction] 7.7 % Normal <=5.6 [facility] Comment on above: Order Comment: 111 Performed By: #### L 501.9985, L503.0106, L500.4100, L506.1001, L501.9520, L501.5200, L500.4050, L100.0500 ####[facility] [address] [place], [address] Hemoglobin A1c percentageOrd ered By: Sharmila Arteaga on 01-27-2025 HbA1c (Bld) [Mass fraction] 7.7 % >5.7 [facility] Hemoglobin measurementOrdere d By: Sharmila Arteaga on 01-27-2025 Hemoglobin (Bld) [Mass/Vol] 10.7 g/dL Low 13.0-16.5 [facility] L503.0106on 01-27-2025 Cobalamin (Vitamin B12) [Mass/Vol] 536 pg/mL Normal 180-914 [facility] Comment on above: Order Comment: 111 Performed By: #### L 501.9985, L503.0106, L500.4100, L506.1001, L501.9520, L501.5200, L500.4050, L100.0500 ####[facility] [address] [place], [address] L506.1001on 01-27-2025 Vitamin D 25-OH 14.8 ng/mL Low 30-100 [facility] Comment on above: Order Comment: 111 Result Comment: Celina min D Status Deficiency: <20 ng/mL (50nmol/L) Insufficiency: 20-30 ng/mL (50-75 nmol/L) Sufficiency: 30-100 ng/mL (75-250 nmol/L) Toxicity: >100 ng/mL (>250 nmol/L) Performed By: #### L 501.9985, L503.0106, L500.4100, L506.1001, L501.9520, L501.5200, L500.4050, L100.0500 ####[facility] [address] [place], [address] LDL calc ser/plasOrdered By: Sharmila Arteaga on 01-27-2025 Cholesterol in LDL [Mass/Vol] 37 mg/dL [facility] Comment on above: Xjzcajkjnq=907-967 m g/dL & Higher Lfkq=845 mg/dL or greater LDL Cholesterol, Calculated 37 mg/dL [facility] Comment on above: Eicnskkoxc=845-411 m g/dL & Higher Wota=040 mg/dL or greater Laboratory - Chemistry and C hemistry - challengeOrdered By: Sharmila Arteaga on 01-27-2025 AST [Catalytic activity/Vol] 20 U/L <38 [facility] Lipid Profileon 01-27-2025 CHOL:HDL 4.11 Normal [facility] Comment on above: Order Comment: 111 Performed By: #### L 501.9985, L503.0106, L500.4100, L506.1001, L501.9520, L501.5200, L500.4050, L100.0500 ####[facility] [address] [place], [address] Cholesterol [Mass/Vol] 116 mg/dL Normal <=200 [facility] Comment on above: Order Comment: 111 Result Comment: Chol esterol level, Desirable <200 mg/dL Borderline high cholesterol 200-239 mg/dL High cholesterol >=240 mg/dL Recommendations of the NCEP Adult Treatment Panel for the following risk-cutoff thresholds for the [place] population. Performed By: #### L 501.9985, L503.0106, L500.4100, L506.1001, L501.9520, L501.5200, L500.4050, L100.0500 ####[facility] [address] [place], [address] Cholesterol in HDL [Mass/Vol] 28 mg/dL Low [facility] Comment on above: Order Comment: 111 Result Comment: [place] on[place] Cholesterol Education Program (NCEP) guidelines: <40 mg/dL: Low HDL-cholesterol (major risk factor for CHD) >= 60 mg/dL: High HDL-cholesterol (negative risk factor for CHD) HDL-cholesterol is affected by a number of factors, e.g. smoking, exercise, hormones, sex and age. Performed By: #### L 501.9985, L503.0106, L500.4100, L506.1001, L501.9520, L501.5200, L500.4050, L100.0500 ####[facility] [address] [place], [address] Cholesterol in LDL [Mass/Vol] 37 mg/dL Normal [facility] Comment on above: Order Comment: 111 Result Comment: Bord kpqvqu=719-454 mg/dL Higher Pqee=995 mg/dL or greater Performed By: #### L 501.9985, L503.0106, L500.4100, L506.1001, L501.9520, L501.5200, L500.4050, L100.0500 ####[facility] [address] [place], [address] Cholesterol in VLDL [Mass/Vol] 51 mg/dL High 5-40 [facility] Comment on above: Order Comment: 111 Performed By: #### L 501.9985, L503.0106, L500.4100, L506.1001, L501.9520, L501.5200, L500.4050, L100.0500 ####[facility] [address] [place], [address] Triglyceride [Mass/Vol] 255 mg/dL High [facility] Comment on above: Order Comment: 111 Result Comment: The drugs N-Acetylcysteine and Metamizole may falsely depress this assay. Normal range: <150 mg/dL Borderline High: 150-199 mg/dL High: 200-499 mg/dL Very High: >500 mg/dL Performed By: #### L 501.9985, L503.0106, L500.4100, L506.1001, L501.9520, L501.5200, L500.4050, L100.0500 ####[facility] [address] [facility] [address] [facility] [place], [place], [id number] MCV (mean corpuscular volume ) determinationOrdered By: Sharmila Arteaga on 01-27-2025 MCV (RBC) [Entitic vol] 97.5 fL High 80-94 [facility] Magnesiumon 01-27-2025 Magnesium [Mass/Vol] 1.7 mg/dL Normal 1.5-2.2 [facility] Comment on above: Order Comment: 111 Performed By: #### L 501.9985, L503.0106, L500.4100, L506.1001, L501.9520, L501.5200, L500.4050, L100.0500 ####[facility] [address] [facility]. [place], [place], [id number] Magnesium (Unsp spec) [Mass/ Vol]Ordered By: Sharmila Arteaga on 01-27-2025 Magnesium [Mass/Vol] 1.7 mg/dL 1.5-2.2 [facility] Magnesium measurement (mass/ volume)Ordered By: Sharmila Arteaga on 01-27-2025 Magnesium (Unsp spec) [Mass/Vol] 1.7 mg/dL 1.5-2.2 [facility] Mean corpuscular hemoglobin (MCH) determinationOrdered By: Sharmila Arteaga on 01-27-2025 MCH (RBC) [Entitic mass] 33.2 pg High 27.0-32.0 [facility] Mean corpuscular hemoglobin concentration (MCHC) determinationOrdered By: Sharmila Arteaga on 01-27-2025 MCHC (RBC) [Mass/Vol] 34.1 g/dL 32-36 [facility] Mean platelet volume determi nationOrdered By: Sharmila Arteaga on 01-27-2025 Platelet mean volume (Bld) [Entitic vol] 11.5 fL 6.2-12.0 [facility] Platelet countOrdered By: Boom Arteaga on 01-27-2025 Platelets (Bld) [#/Vol] 339 10*3/uL 150-450 [facility] Potassium (Unsp spec) [Mass/ Vol]Ordered By: Sharmila Arteaga on 01-27-2025 Potassium [Moles/Vol] 5.1 mmol/L 3.3-5.1 [facility] Potassium measurement (mass/ volume)Ordered By: Sharmila Arteaga on 01-27-2025 Potassium (Unsp spec) [Mass/Vol] 5.1 mmol/L 3.3-5.1 [facility] RBC Auto (Bld) [#/Vol]Ordere d By: Sharmila Arteaga on 01-27-2025 RBC (Bld) [#/Vol] 3.22 10*6/uL Low 4.6-6.2 [facility] Screening total cholesterol/ high density lipoprotein (HDL) cholesterol ratioOrdered By: Sharmila Arteaga on 01-27-2025 Cholesterol.total/Caren sterol in HDL [Mass ratio] 4.11 {ratio} [facility] Serum creatinine measurement (mass/volume)Ordered By: Sharmila Arteaga on 01-27-2025 Creatinine [Mass/Vol] 2.20 mg/dL High 0.70-1.20 [facility] Serum globulin measurementOr dered By: Sharmila Arteaga on 01-27-2025 Globulin (S) [Mass/Vol] 2.7 g/dL 2.2-4.2 [facility] Serum glucose measurement (m ass/volume)Ordered By: Sharmila Arteaga on 01-27-2025 Glucose [Mass/Vol] 258 mg/dL High 70-99 [facility] Serum or plasma alanine hutson otransferase (ALT) measurementOrdered By: Sharmila Arteaga on 01-27-2025 ALT [Catalytic activity/Vol] 17 U/L <47 [facility] Serum or plasma albumin quynh urement (mass/volume)Ordered By: Sharmila Arteaga on 01-27-2025 Albumin [Mass/Vol] 3.5 g/dL 3.4-4.8 [facility] Serum or plasma albumin/glob ulin mass ratioOrdered By: Sharmila Arteaga on 01-27-2025 Albumin/Globulin [Mass ratio] 1.3 {ratio} 0.9-2.4 [facility] Serum or plasma alkaline charito sphatase measurementOrdered By: Sharmila Arteaga on 01-27-2025 ALP [Catalytic activity/Vol] 44 U/L 40-129 [facility] Serum or plasma calcium quynh urement (mass/volume)Ordered By: Sharmila Arteaga on 01-27-2025 Calcium [Mass/Vol] 9.5 mg/dL 7.6-11.0 [facility] Serum or plasma cholesterol in HDL measurement (mass/volume)Ordered By: Sharmila Arteaga on 01-27-2025 Cholesterol in HDL [Mass/Vol] 28 mg/dL Low >40 [facility] Comment on above: National Cholesterol Education Program (NCEP) guidelines:<40 mg/dL: Low HDL-cholesterol (major risk factor for CHD)>= 60 mg/dL: High HDL-cholesterol (negative risk factor for CHD)HDL-cholesterol is affected by a number of factors, e.g. smoking, exercise, hormones, sex and age. Serum or plasma cholesterol measurement (mass/volume)Ordered By: Sharmila Arteaga on 01-27-2025 Cholesterol [Mass/Vol] 116 mg/dL <201 [facility] Comment on above: Cholesterol level, D esirable <200 mg/dLBorderline high cholesterol 200-239 mg/dLHigh cholesterol >=240 mg/dLRecommendations of the NCEP Adult Treatment Panel for the following risk-cutoff thresholds for the [place] population. Serum or plasma urea nitroge n measurement (mass/volume)Ordered By: Sharmila Arteaga on 01-27-2025 Urea nitrogen [Mass/Vol] 41 mg/dL High 4-19 [facility] Sodium levelOrdered By: Angel Arteaga on 01-27-2025 Sodium [Moles/Vol] 135 mmol/L 133-145 [facility] TSH DL <= 0.005 mIU/L QnOrde red By: Sharmila Arteaga on 01-27-2025 Thyroid Stimulating Hormone (TSH) 3.110 uIU/mL 0.300-4.200 [facility] TSH Qn 3.110 uIU/mL 0.300-4.200 [facility] Thyroid Stim Hormone (TSH)on 01-27-2025 TSH 3.110 uIU/mL Normal 0.300-4.200 [facility] Comment on above: Order Comment: 111 Performed By: #### L 501.9985, L503.0106, L500.4100, L506.1001, L501.9520, L501.5200, L500.4050, L100.0500 ####[facility] [address] [place], [address] Total proteinOrdered By: James Arteaga on 01-27-2025 Protein [Mass/Vol] 6.3 g/dL 5.9-8.4 [facility] Triglycerides measurementOrd ered By: Sharmila Arteaga on 01-27-2025 Triglyceride [Mass/Vol] 255 mg/dL High <199 [facility] Comment on above: The drugs N-Acetylcy steine and Metamizole may falsely depress this assay. Normal range: <150 mg/dLBorderline High: 150-199 mg/dLHigh: 200-499 mg/dLVery High: >500 mg/dL Vitamin B12 ser/plasOrdered By: Sharmila Arteaga on 01-27-2025 Cobalamin (Vitamin B12) [Mass/Vol] 536 pg/mL 180-914 [facility] Vitamin D, 25-hydroxyOrdered By: Sharmila Arteaga on 01-27-2025 Vitamin D 25-Hydroxy 14.8 ng/mL Low 30-100 [facility] Comment on above: Vitamin D StatusDefi ciency: <20 ng/mL (50nmol/L)Insufficiency: 20-30 ng/mL (50-75 nmol/L)Sufficiency: 30-100 ng/mL (75-250 nmol/L)Toxicity: >100 ng/mL (>250 nmol/L) White blood cell (WBC) count Ordered By: Sharmila Arteaga on 01-27-2025 WBC (Bld) [#/Vol] 7.4 10*3/uL 4.4-11.0 [facility] Renal Profileon 12-25-2024 Calcium [Mass/Vol] 10.0 mg/dL Normal 7.6-11.0 [facility] Comment on above: Performed By: #### L 501.0900, L500.3600 ####[facility] [address] [place], [address] Chloride [Moles/Vol] 103 mmol/L Normal 98-107 [facility] Comment on above: Performed By: #### L 501.0900, L500.3600 ####[facility] [address] [place], [address] CO2 [Moles/Vol] 20.2 mmol/L Low 21.0-32.0 [facility] Comment on above: Performed By: #### L 501.0900, L500.3600 ####[facility] [address] [place], [address] Potassium [Moles/Vol] 4.8 mmol/L Normal 3.5-5.1 [facility] Comment on above: Performed By: #### L 501.0900, L500.3600 ####[facility] [address] [place], [address] Sodium [Moles/Vol] 140 mmol/L Normal 136-145 [facility] Comment on above: Performed By: #### L 501.0900, L500.3600 ####[facility] [address] [place], [address] BUN/creatinine ratioon 12-24 Urea nitrogen/Creatinine [Mass ratio] 17.5 mg/mg 10-20 [facility] Creatinine Unsp time (U) [Ma ss/Vol]on 12-24-2024 Creatinine (U) [Mass/Vol] 90.10 mg/dL NO RANGE EST. [facility] Creatinine [Moles/Vol]on Creatinine [Mass/Vol] 2.0 mg/dL High 0.8-1.3 [facility] GFR/1.73 sq M.predicted roxann g non-blacks MDRD (S/P/Bld) [Vol rate/Area]on 12-24-2024 Estimated GFR (MDRD) Non-Af Amer 35 Low >60 [facility] Comment on above: mL/min/1.73m2 CKD-EP I Creatinine Equation (2020) Glomerular filtration rate ( GFR) estimation/1.73 sq m using serum, plasma, or whole bon 12-24-2024 GFR/1.73 sq M.predicted among non-blacks MDRD (S/P/Bld) [Vol rate/Area] 35 mL/min/{1.73_m2} Low >60 [facility] Comment on above: mL/min/1.73m2 CKD-EP I Creatinine Equation (2020) Potassium measurementon 12-01 Potassium [Moles/Vol] 4.8 mmol/L 3.5-5.1 [facility] Protein+Creatinine Ratio,Uri neon 12-24-2024 PROT:CRE RATIO 383 mg/g CRE High 0-200 [facility] Comment on above: Performed By: #### L 501.0900, L500.3600 ####[facility] [address] [place], [address] Protein (U) [Mass/Vol] 35 mg/dL Normal <=12 [facility] Comment on above: Performed By: #### L 501.0900, L500.3600 ####[facility] [address] [place], [address] UR CREAT 90.10 mg/dL Normal NO RANGE EST. [facility] Comment on above: Performed By: #### L 501.0900, L500.3600 ####[facility] [address] [place], [address] Protein/Creatinine (U) [Mass ratio]on 12-24-2024 Urine Protein/Creatinine Ratio 383 mg/g CRE High 0-200 [facility] Random urine creatinine quynh urement (mass/volume)on 12-24-2024 Creatinine Unsp time (U) [Mass/Vol] 90.10 mg/dL NO RANGE EST. [facility] Serum glucose measurement (m ass/volume)on 12-24-2024 Glucose [Mass/Vol] 158 mg/dL High 70-99 [facility] Serum or plasma albumin quynh urement (mass/volume)on 12-24-2024 Albumin [Mass/Vol] 4.0 g/dL 3.4-4.8 [facility] Serum or plasma calcium quynh urement (mass/volume)on 12-24-2024 Calcium [Mass/Vol] 10.0 mg/dL 7.6-11.0 [facility] Serum or plasma carbon dioxi de measurement (moles/volume)on 12-24-2024 CO2 [Moles/Vol] 20.2 mmol/L Low 21.0-32.0 [facility] Serum or plasma chloride oanh surement (moles/volume)on 12-24-2024 Chloride [Moles/Vol] 103 mmol/L 98-107 [facility] Serum or plasma creatinine m easurement (moles/volume)on 12-24-2024 Creatinine [Moles/Vol] 2.0 mg/dL High 0.8-1.3 [facility] Serum or plasma urea nitroge n measurement (mass/volume)on 12-24-2024 Urea nitrogen [Mass/Vol] 35 mg/dL High 4-19 [facility] Serum phosphorus measurement on 12-24-2024 Phosphorus Level 3.3 mg/dL 2.7-4.5 [facility] Sodium levelon 12-24-2024 Sodium [Moles/Vol] 140 mmol/L 136-145 [facility] Urine protein measurement (m ass/volume)on 12-24-2024 Protein (U) [Mass/Vol] 35 mg/dL <=12 [facility] Urine protein/creatinine mas s ratioon 12-24-2024 Protein/Creatinine (U) [Mass ratio] 383 mg/g CRE High 0-200 [facility] Methylmalonic Acid [place] METHYLMAL ACID 295 nmol/L Normal 0-378 [facility] Comment on above: Order Comment: Test( s) [id number]-Ohqerxembbdsq Acid, Serumwas developed and its performance characteristicsdetermined by [employer]. It has not been cleared or approvedby the Food and Drug Administration. Result Comment: Perf ormed at: - [address] [id number] [employer] Maker: Dilcia Sloan MD, Phone: [phone] Performed By: #### L 502.0250, L501.5200, L3300.9910, L500.4050, L7400.3000, L503.0105, L503.6150, L503.6550, L503.6075, L100.0100, L501.9520, L506.0250, L506.0400 ####[facility] [address] [place], [address] Zinc, WHOLE BLOODon 12-05-19 25 Zinc Whole Bld 632 ug/dL Normal 440-860 [facility] Comment on above: Order Comment: Test( s) [id number]-[id number], Whole Bloodwas developed and its performance characteristicsdetermined by [employer]. It has not been cleared or approvedby the Food and Drug Administration. Result Comment: Perf ormed at: [address] [id number] [employer] Maker: Dilcia Sloan MD, Phone: [phone] Performed By: #### L 502.0250, L501.5200, L3300.9910, L500.4050, L7400.3000, L503.0105, L503.6150, L503.6550, L503.6075, L100.0100, L501.9520, L506.0250, L506.0400 ####[facility] [id number] [place], [place], [id number] L3410.9998on 12-04-2024 [facility]. COMMENT Normal . [facility] Comment on above: Order Comment: [id number] 3HGB A1C Result Comment: Test Ordered: [id number] Hemoglobin A1c Hemoglobin A1c 7.1 [H ] % CB Reference Range: 4.8-5.6 Prediabetes: 5.7 - 6.4 Diabetes: >6.4 Glycemic control for adults with diabetes: <7.0 Performed at: - [facility] [id number] [employer] Maker: Greg Preciado PhD, Phone: [phone] Performed By: #### L 3410.9998 ####[facility] [id number] [facility] [place], [address] Absolute neutrophil countOrd ered By: PHYLLIS MAE on 12-02-2024 Neutrophils (Bld) [#/Vol] 3.9 10*3/uL 2.0-7.7 [facility] Albumin to globulin ratioOrd ered By: PHYLLIS MAE on 12-02-2024 Albumin/Globulin [Mass ratio] 0.9 {ratio} 0.9-2.4 [facility] Basophil percentageOrdered B y: PHYLLIS MAE on 12-02-2024 Basophils/100 WBC (Bld) 0.7 % 0-1 [facility] Bilirubin, totalOrdered By: PHYLLIS MAE on 12-02-2024 Bilirubin [Mass/Vol] 0.40 mg/dL 0.20-1.00 [facility] Comment on above: For patients on eltr ombopag therapy, use of Dimension [place] TBIL is not recommended. Blood urea nitrogen (BUN)/cr eatinine ratioOrdered By: PHYLLIS MAE on 12-02-2024 Urea nitrogen/Creatinine [Mass ratio] 13.0 mg/mg 10-20 [facility] CBC W/Diff, Automatedon Absolute Lymph 2.44 X10 3/uL Normal 0.83-4.51 [facility] Comment on above: Performed By: #### L 502.0250, L501.5200, L3300.9910, L500.4050, L7400.3000, L503.0105, L503.6150, L503.6550, L503.6075, L100.0100, L501.9520, L506.0250, L506.0400 #### [facility] [address] [place], [address] Absolute Neut 3.9 X10 3/uL Normal 2.0-7.7 [facility] Comment on above: Performed By: #### L 502.0250, L501.5200, L3300.9910, L500.4050, L7400.3000, L503.0105, L503.6150, L503.6550, L503.6075, L100.0100, L501.9520, L506.0250, L506.0400 #### [facility] [address] [facility] [place], [address] Basophils/100 WBC (Bld) 0.7 % Normal 0-1 [facility] Comment on above: Performed By: #### L 502.0250, L501.5200, L3300.9910, L500.4050, L7400.3000, L503.0105, L503.6150, L503.6550, L503.6075, L100.0100, L501.9520, L506.0250, L506.0400 #### [facility] [address] [facility] [place], [address] Eosinophils/100 WBC (Bld) 4.1 % Normal 0-5 [facility] Comment on above: Performed By: #### L 502.0250, L501.5200, L3300.9910, L500.4050, L7400.3000, L503.0105, L503.6150, L503.6550, L503.6075, L100.0100, L501.9520, L506.0250, L506.0400 #### [facility] [address] [facility] [place], [address] Erythrocyte distribution width (RBC) [Ratio] 13.0 % Normal 11.6-14.6 [facility] Comment on above: Performed By: #### L 502.0250, L501.5200, L3300.9910, L500.4050, L7400.3000, L503.0105, L503.6150, L503.6550, L503.6075, L100.0100, L501.9520, L506.0250, L506.0400 #### [facility] [address] [place], [address] Hematocrit (Bld) [Volume fraction] 35.9 % Low 40-54 [facility] Comment on above: Performed By: #### L 502.0250, L501.5200, L3300.9910, L500.4050, L7400.3000, L503.0105, L503.6150, L503.6550, L503.6075, L100.0100, L501.9520, L506.0250, L506.0400 #### [facility] [address] [place], [address] Hemoglobin (Bld) [Mass/Vol] 12.0 g/dL Low 13.0-16.5 [facility] Comment on above: Performed By: #### L 502.0250, L501.5200, L3300.9910, L500.4050, L7400.3000, L503.0105, L503.6150, L503.6550, L503.6075, L100.0100, L501.9520, L506.0250, L506.0400 #### [facility] [address] [place], [address] IG% 0.600 Normal 0.0-0.9 [facility] Comment on above: Result Comment: IG% - Immature Granulocytes (promyelocytes, myelocytes and metamyelocytes) > 1% indicates that a LEFT SHIFT is Present. Performed By: #### L 502.0250, L501.5200, L3300.9910, L500.4050, L7400.3000, L503.0105, L503.6150, L503.6550, L503.6075, L100.0100, L501.9520, L506.0250, L506.0400 #### [facility] [address] [place], [address] Lymphocytes/100 WBC (Bld) 33.7 % Normal 19-41 [facility] Comment on above: Performed By: #### L 502.0250, L501.5200, L3300.9910, L500.4050, L7400.3000, L503.0105, L503.6150, L503.6550, L503.6075, L100.0100, L501.9520, L506.0250, L506.0400 #### [facility] [address] [facility] [address] [place], [address] MCH (RBC) [Entitic mass] 33.3 pg High 27.0-32.0 [facility] Comment on above: Performed By: #### L 502.0250, L501.5200, L3300.9910, L500.4050, L7400.3000, L503.0105, L503.6150, L503.6550, L503.6075, L100.0100, L501.9520, L506.0250, L506.0400 #### [facility] [address] [place], [address] MCHC (RBC) [Mass/Vol] 33.4 g/dL Normal 32-36 [facility] Comment on above: Performed By: #### L 502.0250, L501.5200, L3300.9910, L500.4050, L7400.3000, L503.0105, L503.6150, L503.6550, L503.6075, L100.0100, L501.9520, L506.0250, L506.0400 #### [facility] [address] [place], [address] MCV (RBC) [Entitic vol] 99.7 fL High 80-94 [facility] Comment on above: Performed By: #### L 502.0250, L501.5200, L3300.9910, L500.4050, L7400.3000, L503.0105, L503.6150, L503.6550, L503.6075, L100.0100, L501.9520, L506.0250, L506.0400 #### [facility] [address] [place], [address] Monocytes/100 WBC (Bld) 7.6 % Normal 0-10 [facility] Comment on above: Performed By: #### L 502.0250, L501.5200, L3300.9910, L500.4050, L7400.3000, L503.0105, L503.6150, L503.6550, L503.6075, L100.0100, L501.9520, L506.0250, L506.0400 #### [facility] [address] [place], [address] Neutrophils/100 WBC (Bld) 53.3 % Normal 47-70 [facility] Comment on above: Performed By: #### L 502.0250, L501.5200, L3300.9910, L500.4050, L7400.3000, L503.0105, L503.6150, L503.6550, L503.6075, L100.0100, L501.9520, L506.0250, L506.0400 #### [facility] [address] [facility] [place], [address] Nucleated RBC (Bld) [#/Vol] 0 10*3/uL Normal 0-5 [facility] Comment on above: Performed By: #### L 502.0250, L501.5200, L3300.9910, L500.4050, L7400.3000, L503.0105, L503.6150, L503.6550, L503.6075, L100.0100, L501.9520, L506.0250, L506.0400 #### [facility] [address] [place], [address] Platelet mean volume (Bld) [Entitic vol] 11.4 fL Normal 6.2-12.0 [facility] Comment on above: Performed By: #### L 502.0250, L501.5200, L3300.9910, L500.4050, L7400.3000, L503.0105, L503.6150, L503.6550, L503.6075, L100.0100, L501.9520, L506.0250, L506.0400 #### [facility] [address] [place], [address] Platelets (Bld) [#/Vol] 277 10*3/uL Normal 150-450 [facility] Comment on above: Performed By: #### L 502.0250, L501.5200, L3300.9910, L500.4050, L7400.3000, L503.0105, L503.6150, L503.6550, L503.6075, L100.0100, L501.9520, L506.0250, L506.0400 #### [facility] [address] [place], [address] RBC (Bld) [#/Vol] 3.60 10*6/uL Low 4.6-6.2 [facility] Comment on above: Performed By: #### L 502.0250, L501.5200, L3300.9910, L500.4050, L7400.3000, L503.0105, L503.6150, L503.6550, L503.6075, L100.0100, L501.9520, L506.0250, L506.0400 #### [facility] [address] [place], [address] RDW SD 47.8 fl High 35.1-43.9 [facility] Comment on above: Performed By: #### L 502.0250, L501.5200, L3300.9910, L500.4050, L7400.3000, L503.0105, L503.6150, L503.6550, L503.6075, L100.0100, L501.9520, L506.0250, L506.0400 #### [facility] [address] [place], [address] WBC (Bld) [#/Vol] 7.3 10*3/uL Normal 4.4-11.0 [facility] Comment on above: Performed By: #### L 502.0250, L501.5200, L3300.9910, L500.4050, L7400.3000, L503.0105, L503.6150, L503.6550, L503.6075, L100.0100, L501.9520, L506.0250, L506.0400 #### [facility] [address] [place], [place], [id number] Carbon dioxide measurementOr dered By: PHYLLIS MAE on 12-02-2024 CO2 [Moles/Vol] 25.0 mmol/L 21.0-32.0 [facility] Chloride measurementOrdered By: PHYLLIS MAE on 12-02-2024 Chloride [Moles/Vol] 107 mmol/L 98-107 [facility] Comprehensive Metabolic Prof ilon 12-02-2024 Albumin [Mass/Vol] 3.6 g/dL Normal 3.2-5.0 [facility] Comment on above: Performed By: #### L 502.0250, L501.5200, L3300.9910, L500.4050, L7400.3000, L503.0105, L503.6150, L503.6550, L503.6075, L100.0100, L501.9520, L506.0250, L506.0400 #### [facility] [address] [place], [address] Albumin/Globulin [Mass ratio] 0.9 {ratio} Normal 0.9-2.4 [facility] Comment on above: Performed By: #### L 502.0250, L501.5200, L3300.9910, L500.4050, L7400.3000, L503.0105, L503.6150, L503.6550, L503.6075, L100.0100, L501.9520, L506.0250, L506.0400 #### [facility] [address] [place], [address] ALK P 42 U/L Low 45-117 [facility] Comment on above: Performed By: #### L 502.0250, L501.5200, L3300.9910, L500.4050, L7400.3000, L503.0105, L503.6150, L503.6550, L503.6075, L100.0100, L501.9520, L506.0250, L506.0400 #### [facility] [address] [place], [address] ALT [Catalytic activity/Vol] 31 U/L Normal 16-61 [facility] Comment on above: Performed By: #### L 502.0250, L501.5200, L3300.9910, L500.4050, L7400.3000, L503.0105, L503.6150, L503.6550, L503.6075, L100.0100, L501.9520, L506.0250, L506.0400 #### [facility] [address] [place], [address] AST [Catalytic activity/Vol] 33 U/L Normal 15-37 [facility] Comment on above: Performed By: #### L 502.0250, L501.5200, L3300.9910, L500.4050, L7400.3000, L503.0105, L503.6150, L503.6550, L503.6075, L100.0100, L501.9520, L506.0250, L506.0400 #### [facility] [address] [place], [address] Bilirubin [Mass/Vol] 0.40 mg/dL Normal 0.20-1.00 [facility] Comment on above: Result Comment: For patients on eltrombopag therapy, use of Dimension [place] TBIL is not recommended. Performed By: #### L 502.0250, L501.5200, L3300.9910, L500.4050, L7400.3000, L503.0105, L503.6150, L503.6550, L503.6075, L100.0100, L501.9520, L506.0250, L506.0400 #### [facility] [address] [place], [place], [phone] (324) BUN/CRE 13.0 RATIO Normal 10-20 [facility] Comment on above: Performed By: #### L 502.0250, L501.5200, L3300.9910, L500.4050, L7400.3000, L503.0105, L503.6150, L503.6550, L503.6075, L100.0100, L501.9520, L506.0250, L506.0400 #### [facility] [address] [place], [place], [phone] (340) CA,Total 9.4 mg/dL Normal 8.5-10.1 [facility] Comment on above: Performed By: #### L 502.0250, L501.5200, L3300.9910, L500.4050, L7400.3000, L503.0105, L503.6150, L503.6550, L503.6075, L100.0100, L501.9520, L506.0250, L506.0400 #### [facility] [address] [place], [place], [phone] (823) Chloride [Moles/Vol] 107 mmol/L Normal 98-107 [facility] Comment on above: Performed By: #### L 502.0250, L501.5200, L3300.9910, L500.4050, L7400.3000, L503.0105, L503.6150, L503.6550, L503.6075, L100.0100, L501.9520, L506.0250, L506.0400 #### [facility] [address] [place], [address] CO2 [Moles/Vol] 25.0 mmol/L Normal 21.0-32.0 [facility] Comment on above: Performed By: #### L 502.0250, L501.5200, L3300.9910, L500.4050, L7400.3000, L503.0105, L503.6150, L503.6550, L503.6075, L100.0100, L501.9520, L506.0250, L506.0400 #### [facility] [address] [place], [place], [id number] Creatinine [Mass/Vol] 1.85 mg/dL High 0.70-1.30 [facility] Comment on above: Result Comment: The validity of the calculated GFR GFRAA in patients over 70 years has not been determined. Clinical correlation is essential. Performed By: #### L 502.0250, L501.5200, L3300.9910, L500.4050, L7400.3000, L503.0105, L503.6150, L503.6550, L503.6075, L100.0100, L501.9520, L506.0250, L506.0400 #### [facility] [address] [place], [address] EST GFR - AA 46 mL/min Low >60 [facility] Comment on above: Result Comment: Afri can [place] GFR Calc Performed By: #### L 502.0250, L501.5200, L3300.9910, L500.4050, L7400.3000, L503.0105, L503.6150, L503.6550, L503.6075, L100.0100, L501.9520, L506.0250, L506.0400 #### [facility] [address] [place], [place], [phone] (423) GAP 7 Normal 5-15 [facility] Comment on above: Performed By: #### L 502.0250, L501.5200, L3300.9910, L500.4050, L7400.3000, L503.0105, L503.6150, L503.6550, L503.6075, L100.0100, L501.9520, L506.0250, L506.0400 #### [facility] [address] [facility] [place], [address] GFR/1.73 sq M.predicted among non-blacks MDRD (S/P/Bld) [Vol rate/Area] 38 mL/min/{1.73_m2} Low >60 [facility] Comment on above: Result Comment: Non- GFR Calc Performed By: #### L 502.0250, L501.5200, L3300.9910, L500.4050, L7400.3000, L503.0105, L503.6150, L503.6550, L503.6075, L100.0100, L501.9520, L506.0250, L506.0400 #### [facility] [address] [place], [place], [id number] Globulin (S) [Mass/Vol] 3.8 g/dL Normal 2.2-4.2 [facility] Comment on above: Performed By: #### L 502.0250, L501.5200, L3300.9910, L500.4050, L7400.3000, L503.0105, L503.6150, L503.6550, L503.6075, L100.0100, L501.9520, L506.0250, L506.0400 #### [facility] [address] [place], [address] Glucose [Mass/Vol] 156 mg/dL High 74-106 [facility] Comment on above: Result Comment: Fast ing Glucose result greater than or equal to 126 mg/dL suggests DIABETES MELLITUS per A.D.A. criteria. Performed By: #### L 502.0250, L501.5200, L3300.9910, L500.4050, L7400.3000, L503.0105, L503.6150, L503.6550, L503.6075, L100.0100, L501.9520, L506.0250, L506.0400 #### [facility] [address] [place], [address] Potassium [Moles/Vol] 4.8 mmol/L Normal 3.5-5.1 [facility] Comment on above: Performed By: #### L 502.0250, L501.5200, L3300.9910, L500.4050, L7400.3000, L503.0105, L503.6150, L503.6550, L503.6075, L100.0100, L501.9520, L506.0250, L506.0400 #### [facility] [address] [place], [address] Sodium [Moles/Vol] 139 mmol/L Normal 136-145 [facility] Comment on above: Performed By: #### L 502.0250, L501.5200, L3300.9910, L500.4050, L7400.3000, L503.0105, L503.6150, L503.6550, L503.6075, L100.0100, L501.9520, L506.0250, L506.0400 #### [facility] [address] [place], [address] T PROT 7.4 g/dL Normal 6.4-8.2 [facility] Comment on above: Performed By: #### L 502.0250, L501.5200, L3300.9910, L500.4050, L7400.3000, L503.0105, L503.6150, L503.6550, L503.6075, L100.0100, L501.9520, L506.0250, L506.0400 #### [facility] [address] [facility] [place], [place], [id number] Urea nitrogen [Mass/Vol] 24 mg/dL High 7-18 [facility] Comment on above: Performed By: #### L 502.0250, L501.5200, L3300.9910, L500.4050, L7400.3000, L503.0105, L503.6150, L503.6550, L503.6075, L100.0100, L501.9520, L506.0250, L506.0400 #### [facility] [address] [facility] [place], [place], [id number] Direct serum free thyroxine (FT4) measurementOrdered By: PHYLLIS MAE on 12-02-2024 Free T4 [Mass/Vol] 0.94 ng/dL 0.76-1.46 [facility] Eosinophil percentageOrdered By: PHYLLIS MAE 12-02-2024 Eosinophils/100 WBC (Bld) 4.1 % 0-5 [facility] Erythrocyte distribution wid th ratioOrdered By: PHYLLIS MAE on 12-02-2024 Erythrocyte distribution width (RBC) [Ratio] 13.0 % 11.6-14.6 [facility] Erythrocyte distribution wid th standard deviationOrdered By: PHYLLISAllie MAE on 12-02-2024 Erythrocyte distribution width (RBC) [Entitic vol] 47.8 fL High 35.1-43.9 [facility] Estimated glomerular filtrat ion rate (GFR) AmericanOrdered By: PHYLLIS MAE on 12-02-2024 Estimated GFR (MDRD) Amer 46 mL/min Low >60 [facility] Comment on above: GFR Calc Ferritinon 12-02-2024 Ferritin [Mass/Vol] 190 ng/mL Normal 26-388 [facility] Comment on above: Performed By: #### L 502.0250, L501.5200, L3300.9910, L500.4050, L7400.3000, L503.0105, L503.6150, L503.6550, L503.6075, L100.0100, L501.9520, L506.0250, L506.0400 ####[facility] [address] [place], [place], [id number] Ferritin measurementOrdered By: PHYLLIS MAE on 12-02-2024 Ferritin [Mass/Vol] 190 ng/mL 26-388 [facility] Folates, (Folic Acid)on FOLATES 72.50 ng/mL High 3.1-55.4 [facility] Comment on above: Order Comment: N Performed By: #### L 502.0250, L501.5200, L3300.9910, L500.4050, L7400.3000, L503.0105, L503.6150, L503.6550, L503.6075, L100.0100, L501.9520, L506.0250, L506.0400 ####[facility] [address] [place], [place], [id number] Folic acid measurementOrdere d By: PHYLLIS MAE on 12-02-2024 Folate 72.50 ng/mL High 3.1-55.4 [facility] Glomerular filtration rate ( GFR) estimationOrdered By: PHYLLIS MAE on 12-02-2024 Estimated GFR (MDRD) Non-Af Amer 38 mL/min Low >60 [facility] Comment on above: Non- GFR Calc Glucose measurementOrdered B y: PHYLLIS MAE on 12-02-2024 Glucose [Mass/Vol] 156 mg/dL High 74-106 [facility] Comment on above: Fasting Glucose resu lt greater than or equal to 126 mg/dL suggests DIABETES MELLITUS per A.D.A. criteria. Hematocrit Auto (Bld) [Volum e fraction]Ordered By: PHYLLIS MAE on 12-02-2024 Hematocrit (Bld) [Volume fraction] 35.9 % Low 40-54 [facility] Hemoglobin measurementOrdere d By: PHYLLIS MAE on 12-02-2024 Hemoglobin (Bld) [Mass/Vol] 12.0 g/dL Low 13.0-16.5 [facility] Immature granulocytes/100 WB C Auto (Bld)Ordered By: PHYLLIS MAE on 12-02-2024 Immature granulocytes/100 WBC (Bld) 0.600 % 0.0-0.9 [facility] Comment on above: IG% - Immature Granu locytes (promyelocytes, myelocytes and metamyelocytes) > 1% indicates that a LEFT SHIFT is Present. Ironon 12-02-2024 Iron [Mass/Vol] 97 ug/dL Normal 65-175 [facility] Comment on above: Performed By: #### L 502.0250, L501.5200, L3300.9910, L500.4050, L7400.3000, L503.0105, L503.6150, L503.6550, L503.6075, L100.0100, L501.9520, L506.0250, L506.0400 ####[facility] [address] [place], [address] Iron (Unsp spec) [Mass/Mass] Ordered By: PHYLLIS MAE on 12-02-2024 Iron [Mass/Vol] 97 ug/dL 65-175 [facility] Iron Binding Capacity,Totalo n 12-02-2024 TIBC 377 ug/dL Normal 250-450 [facility] Comment on above: Performed By: #### L 502.0250, L501.5200, L3300.9910, L500.4050, L7400.3000, L503.0105, L503.6150, L503.6550, L503.6075, L100.0100, L501.9520, L506.0250, L506.0400 ####[facility] [address] [place], [place], [id number] Laboratory - Chemistry and C hemistry - challengeOrdered By: PHYLLIS MAE on 12-02-2024 AST [Catalytic activity/Vol] 33 U/L 15-37 [facility] Lymphocytes Auto (Unsp spec) [#/Vol]Ordered By: PHYLLIS MAE on 12-02-2024 Lymphocytes (Bld) [#/Vol] 2.44 10*3/uL 0.83-4.51 [facility] Lymphocytes/100 WBC Auto (Un sp spec)Ordered By: PHYLLIS MAE on 12-02-2024 Lymphocytes/100 WBC (Bld) 33.7 % 19-41 [facility] MCV (mean corpuscular volume ) determinationOrdered By: PHYLLIS MAE on 12-02-2024 MCV (RBC) [Entitic vol] 99.7 fL High 80-94 [facility] Magnesiumon 12-02-2024 Magnesium [Mass/Vol] 2.1 mg/dL Normal 1.6-2.6 [facility] Comment on above: Performed By: #### L 502.0250, L501.5200, L3300.9910, L500.4050, L7400.3000, L503.0105, L503.6150, L503.6550, L503.6075, L100.0100, L501.9520, L506.0250, L506.0400 #### [facility] [address] [place], [place], [address] Magnesium measurementOrdered By: PHYLLIS MAE on 12-02-2024 Magnesium [Mass/Vol] 2.1 mg/dL 1.6-2.6 [facility] Mean corpuscular hemoglobin (MCH) determinationOrdered By: PHYLLIS MAE on 12-02-2024 MCH (RBC) [Entitic mass] 33.3 pg High 27.0-32.0 [facility] Mean corpuscular hemoglobin concentration (MCHC) determinationOrdered By: PHYLLIS MAE on 12-02-2024 MCHC (RBC) [Mass/Vol] 33.4 g/dL 32-36 [facility] Mean platelet volume determi nationOrdered By: PHYLLIS MAE on 12-02-2024 Platelet mean volume (Bld) [Entitic vol] 11.4 fL 6.2-12.0 [facility] Methylmalonate [Moles/Vol]Or dered By: PHYLLIS MAE on 12-02-2024 Methylmalonic Acid 295 nmol/L 0-378 [facility] Comment on above: Performed at: - L [address] [id number] Director: Dilcia Sloan MD, Phone: [phone] Microalb:Creat Ratio,Random URon 12-02-2024 Creatinine [Mass/Vol] 114.00 mg/dL Normal NO RAN GE EST. [facility] Comment on above: Performed By: #### L 502.0250, L501.5200, L3300.9910, L500.4050, L7400.3000, L503.0105, L503.6150, L503.6550, L503.6075, L100.0100, L501.9520, L506.0250, L506.0400 #### [facility] [address]. [place], [place], [id number] MALB:CRE 491.2 mg/g CRE High <30 mg/g CRE [facility] Comment on above: Performed By: #### L 502.0250, L501.5200, L3300.9910, L500.4050, L7400.3000, L503.0105, L503.6150, L503.6550, L503.6075, L100.0100, L501.9520, L506.0250, L506.0400 #### [facility] [address] [place], [place], [id number] MICROALBUMIN,UR 560.0 mg/L Normal NO RANGE EST. [facility] Comment on above: Performed By: #### L 502.0250, L501.5200, L3300.9910, L500.4050, L7400.3000, L503.0105, L503.6150, L503.6550, L503.6075, L100.0100, L501.9520, L506.0250, L506.0400 #### [facility] [place], [address] Monocyte percentageOrdered B y: PHYLLIS MAE on 12-02-2024 Monocytes/100 WBC (Bld) 7.6 % 0-10 [facility] Neutrophil percentageOrdered By: PHYLLIS MAE on 12-02-2024 Neutrophils/100 WBC (Bld) 53.3 % 47-70 [facility] Nucleated red blood cell per centageOrdered By: PHYLLIS MAE on 12-02-2024 Nucleated RBC/100 WBC (Bld) [Ratio] 0 % 0-5 [facility] Platelet countOrdered By: HAYLEY MAE on 12-02-2024 Platelets (Bld) [#/Vol] 277 10*3/uL 150-450 [facility] Potassium measurementOrdered By: PHYLLIS MAE on 12-02-2024 Potassium [Moles/Vol] 4.8 mmol/L 3.5-5.1 [facility] RBC Auto (Bld) [#/Vol]Ordere d By: PHYLLIS MAE on 12-02-2024 RBC (Bld) [#/Vol] 3.60 10*6/uL Low 4.6-6.2 [facility] Random urine microalbumin me asurementOrdered By: PHYLLIS MAE on 12-02-2024 Urine Random Microalbumin 560.0 mg/L NO RANGE EST. [facility] Serum anion gap measurementO rdered By: PHYLLIS MAE on 12-02-2024 Anion gap [Moles/Vol] 7 mmol/L 5-15 [facility] Serum globulin measurementOr dered By: PHYLLIS MAE on 12-02-2024 Globulin (S) [Mass/Vol] 3.8 g/dL 2.2-4.2 [facility] Serum or plasma alanine hutson otransferase (ALT) measurementOrdered By: PHYLLIS MAE on 12-02-2024 ALT [Catalytic activity/Vol] 31 U/L 16-61 [facility] Serum or plasma albumin quynh urement (mass/volume)Ordered By: PHYLLIS MAE on 12-02-2024 Albumin [Mass/Vol] 3.6 g/dL 3.2-5.0 [facility] Serum or plasma alkaline charito sphatase measurementOrdered By: PHYLLIS MAE on 12-02-2024 ALP [Catalytic activity/Vol] 42 U/L Low 45-117 [facility] Serum or plasma calcium quynh urement (mass/volume)Ordered By: PHYLLIS MAE on 12-02-2024 Calcium [Mass/Vol] 9.4 mg/dL 8.5-10.1 [facility] Serum or plasma creatinine m easurement (mass/volume)Ordered By: PHYLLIS MAE on 12-02-2024 Creatinine [Mass/Vol] 1.85 mg/dL High 0.70-1.30 [facility] Comment on above: The validity of the calculated GFR & GFRAA in patients over 70 years has not been determined. Clinical correlation is essential. Serum or plasma urea nitroge n measurement (mass/volume)Ordered By: PHYLLIS MAE on 12-02-2024 Urea nitrogen [Mass/Vol] 24 mg/dL High 7-18 [facility] Sodium levelOrdered By: ANTWAN MAE on 12-02-2024 Sodium [Moles/Vol] 139 mmol/L 136-145 [facility] T4 Free Directon 12-02-2024 T4 FREE DIRECT 0.94 ng/dL Normal 0.76-1.46 [facility] Comment on above: Order Comment: N Performed By: #### L 502.0250, L501.5200, L3300.9910, L500.4050, L7400.3000, L503.0105, L503.6150, L503.6550, L503.6075, L100.0100, L501.9520, L506.0250, L506.0400 ####[facility] [address] [place] [place], [id number] TIBCOrdered By: PHYLLIS KHANNA on 12-02-2024 Total Iron Binding Capacity 377 ug/dL 250-450 [facility] TSH QnOrdered By: PHYLLIS GONG on 12-02-2024 Thyroid Stimulating Hormone (TSH) 2.380 uIU/mL 0.358-3.740 [facility] Thyroid Stim Hormone (TSH)on 12-02-2024 TSH 2.380 uIU/mL Normal 0.358-3.740 [facility] Comment on above: Performed By: #### L 502.0250, L501.5200, L3300.9910, L500.4050, L7400.3000, L503.0105, L503.6150, L503.6550, L503.6075, L100.0100, L501.9520, L506.0250, L506.0400 #### [facility] [address], [place], [id number] Total proteinOrdered By: JUAREZ MAE on 12-02-2024 Protein [Mass/Vol] 7.4 g/dL 6.4-8.2 [facility] Urine albumin/creatinine rat io for detection of microalbuminuriaOrdered By: PHYLLIS MAE on 12-02-2024 Urine Microalbumin/Creatinine Ratio 491.2 mg/g CRE High <30 [facility] Urine creatinine measurement (mass/volume)Ordered By: PHYLLIS MAE on 12-02-2024 Creatinine (U) [Mass/Vol] 114.00 mg/dL NO RANGE EST. [facility] Vitamin B12on 12-02-2024 Cobalamin (Vitamin B12) [Mass/Vol] 440 pg/mL Normal 211-911 [facility] Comment on above: Performed By: #### L 502.0250, L501.5200, L3300.9910, L500.4050, L7400.3000, L503.0105, L503.6150, L503.6550, L503.6075, L100.0100, L501.9520, L506.0250, L506.0400 #### [facility] [place], [address] Vitamin B12 measurementOrder ed By: PHYLLIS MAE on 12-02-2024 Cobalamin (Vitamin B12) [Mass/Vol] 440 pg/mL 211-911 [facility] White blood cell (WBC) count Ordered By: PHYLLIS MAE on 12-02-2024 WBC (Bld) [#/Vol] 7.3 10*3/uL 4.4-11.0 [facility] Zinc WBOrdered By: PHYLLIS PAGE on 12-02-2024 Whole Blood Zinc 632 ug/dL 440-860 [facility] Comment on above: Performed at: [address] [id number] Director: Dilcia Sloan MD, Phone: [phone] NM MYOCARDIAL PERFUSION MULT I SPECTon 09-16-2024 NM MYOCARDIAL PERFUSION MULTI SPECT Patient Info Name: STEVO ELIZALDE Age: 74 years : 1950 Gender: Male Ht: 168 cm Wt: 64 kg BSA: 1.74 m2 HR: 56 bpm BP: 155 / 70 mmHg Heart Rhythm: Bradycardia Exam Date: 09/16/2024 9:00 AM Patient Status: Outpatient Bowl Topper: Joelle Holbrook, RT(N), FAINA, LILLIE, Saurabh Holbrook RT(N), NCT Exam Type: NM MYOCARDIAL PERFUSION MULTI SPECT Study Info Indications - chest pain; history of CVA Nuclear Physician: Clarita Galvez MD Referring Physician: JAIDEN; [id number] Primary Nurse: Felicitas Cline RN Supervising Stress Physician: Clarita Galvez MD BMI: 22.82 kg/m2 Summary 1. Normal pharmacologic nuclear SPECT myocardial perfusion study. 2. No diagnostic ECG changes with regadenoson. 3. Perfusion imaging demonstrates no fixed or reversible defects. 4. Gated imaging demonstrates normal left ventricular size, wall motion, and systolic function with post-stress LVEF 67%, rest LVEF 65%. No evidence of transient ischemic dilatation. History/Risk Factors Hypertension: Yes Dyslipidemia: Yes Peripheral Arterial Disease (PAD): Yes Diabetes Mellitus: Type II COPD: On Meds Tobacco Use: Current - Every Day Cerebrovascular Disease: Yes Family History: Coronary Artery Disease History/Risk Factors Patient off home medications prior to study. Asthma: NO Caffeine in Last 24 Hours: No Seizure Disorder: No Radiopharmaceutical: Tc-99m Tetrofosmin Administration Site: IV - right antecubital Administered By: Joelle Holbrook RT(N), AIRLINE SECURITY REPRESENTATIVE, [facility] Camera Used: Adreima D-SPECT Radiopharmaceutical: Tc-99m Tetrofosmin Administration Site: IV - right antecubital Administered By: Saurabh Holbrook RT(N), NCT Camera Used: Adreima D-SPECT Image Protocol Protocol: Stress/Rest 1 Day Rest Radiopharmaceutical Dose: 15.2 mCi Imaging Date AND Time: 09/16/2024 11:00 AM Patient Position: supine Stress Radiopharmaceutical Dose: 5.4 mCi Imaging Date AND Time: 09/16/2024 10:00 AM Patient Position: upright and supine Total Radiation Dose: 4.6 mSv Injection Date AND Time: 09/16/2024 10:30 AM Injection Date AND Time: 09/16/2024 9:00 AM Procedure(s): Gated SPECT images acquired upright and supine post Tetrofosmin injection at peak stress. Gated SPECT images acquired supine post Tetrofosmin injection at rest. Resting SPECT images and Stress Gated SPECT images obtained post Thallium injection. SPECT Results Perfusion Findings Resting images showed no change in the pattern of perfusion compared to stress. Normal left ventricular size. Summed Difference Score: 0 Summed Stress Score: 0 Summed Rest Score: 0 Functional Results Name Value Normal Stress Stress LV Ejection Fraction 67 % 55-70 Stress LV End Diastolic Volume Index 44.00 ml/m2 Stress LV End Systolic Volume Index 15.60 ml/m2 Nuclear Stress Myocardial Mass 112.00 g Stress LV End Diastolic Volume 75.00 ml Stress LV End Systolic Volume 25.00 ml Transient Ischemic Dilatation 0.98 Functional Results Name Value Normal Rest Resting LV Ejection Fraction 65 % 55-70 Resting LV End Diastolic Volume Index 48.60 ml/m2 Resting LV End Systolic Volume Index 16.20 ml/m2 Resting LV End Diastolic Volume 81.00 ml Resting LV End Systolic Volume 28.00 ml Nuclear Rest Myocardial Mass 121.00 g Functional Findings Overall left ventricular systolic function was normal without regional wall motion abnormalities. Gated SPECT imaging reveals normal myocardial wall thickening. Post stress left ventricular ejection fraction is normal, 67 %. Resting left ventricular ejection fraction is normal, 65 %. Left ventricular cavity size is normal. Stress ECG Details Protocol: LEXISCAN Rest HR: 56 bpm Peak HR: 76 bpm Rest Sys BP: 155 mmHg Peak Sys BP: 155 mmHg Max Pred HR: 145 bpm % Max Pred HR: 52 % Target HR: 123 bpm Max RPP: 11,780 bpm*mmHg BP Response: Normal blood pressure response Termination Reason: PER PROTOCOL Cardiac Symptoms: None Total Time: 5 min : 0 sec Rest Diehl BP: 70 mmHg Peak Diehl BP: 70 mmHg Total Dose: 0.4 mg Resting ECG Sinus bradycardia. Stress ECG No diagnostic ECG changes with regadenoson. Arrhythmias Occasional PACs. Occasional PVCs. Stress Summary No diagnostic ECG changes with regadenoson. Report Signatures MPI SPECT Finalized by Clarita Galvez MD on 09/16/2024 11:44 AM Stress Finalized by Clarita Galvez MD on 09/16/2024 11:44 AM Dic (more content not included)... Normal [facility] Comment on above: Order Comment: Injur y/Trauma or Illness?:Illness/Other How long have you had these symptoms (acute/chronic)?:Unknown Reason for exam?:CP, CVA Type of Exam?:Unknown Additional signs and symptoms?:CP, CVA ECG 12 Leadon 09-09-2024 Atrial Rate [facility] P [place] [facility] P-R Interval [facility] Q-T Interval [facility] Q-T Interval (corrected) [facility] QRS Duration [facility] QTC Calculation (Bezet) [facility] [place] [facility] T [place] [facility] Ventricular Rate [facility] CBC W/Diff, Automatedon 11-0 Absolute Lymph 1.51 X10 3/uL Normal 0.83-4.51 [facility] Comment on above: Performed By: #### L 500.4050, L501.9520, L100.0100, L506.0400, L501.9985 ####[facility] [address] [place], [address] Absolute Neut 3.3 X10 3/uL Normal 2.0-7.7 [facility] Comment on above: Performed By: #### L 500.4050, L501.9520, L100.0100, L506.0400, L501.9985 ####[facility] [address] [place], [address] Basophils/100 WBC (Bld) 1.4 % High 0-1 [facility] Comment on above: Performed By: #### L 500.4050, L501.9520, L100.0100, L506.0400, L501.9985 ####[facility] [address] [place], [address] Eosinophils/100 WBC (Bld) 3.9 % Normal 0-5 [facility] Comment on above: Performed By: #### L 500.4050, L501.9520, L100.0100, L506.0400, L501.9985 ####[facility] [address] [place], [address] Erythrocyte distribution width (RBC) [Ratio] 12.1 % Normal 11.6-14.6 [facility] Comment on above: Performed By: #### L 500.4050, L501.9520, L100.0100, L506.0400, L501.9985 ####[facility] [address] [place], [address] Hematocrit (Bld) [Volume fraction] 35.0 % Low 40-54 [facility] Comment on above: Performed By: #### L 500.4050, L501.9520, L100.0100, L506.0400, L501.9985 ####[facility] [address] [place], [address] Hemoglobin (Bld) [Mass/Vol] 12.1 g/dL Low 13.0-16.5 [facility] Comment on above: Performed By: #### L 500.4050, L501.9520, L100.0100, L506.0400, L501.9985 ####[facility] [address] [place], [address] IG% 0.500 Normal 0.0-0.9 [facility] Comment on above: Result Comment: IG% - Immature Granulocytes (promyelocytes, myelocytes and metamyelocytes) > 1% indicates that a LEFT SHIFT is Present. Performed By: #### L 500.4050, L501.9520, L100.0100, L506.0400, L501.9985 ####[facility] [address] [place], [address] Lymphocytes/100 WBC (Bld) 27.0 % Normal 19-41 [facility] Comment on above: Performed By: #### L 500.4050, L501.9520, L100.0100, L506.0400, L501.9985 ####[facility] [address] [place], [address] MCH (RBC) [Entitic mass] 35.8 pg High 27.0-32.0 [facility] Comment on above: Performed By: #### L 500.4050, L501.9520, L100.0100, L506.0400, L501.9985 ####[facility] [address] [place], [address] MCHC (RBC) [Mass/Vol] 34.6 g/dL Normal 32-36 [facility] Comment on above: Performed By: #### L 500.4050, L501.9520, L100.0100, L506.0400, L501.9985 ####[facility] [address] [place], [address] MCV (RBC) [Entitic vol] 103.6 fL High 80-94 [facility] Comment on above: Performed By: #### L 500.4050, L501.9520, L100.0100, L506.0400, L501.9985 ####[facility] [address] [place], [address] Monocytes/100 WBC (Bld) 8.4 % Normal 0-10 [facility] Comment on above: Performed By: #### L 500.4050, L501.9520, L100.0100, L506.0400, L501.9985 ####[facility] [address] [place], [address] Neutrophils/100 WBC (Bld) 58.8 % Normal 47-70 [facility] Comment on above: Performed By: #### L 500.4050, L501.9520, L100.0100, L506.0400, L501.9985 ####[facility] [address] [place], [address] Nucleated RBC (Bld) [#/Vol] 0 10*3/uL Normal 0-5 [facility] Comment on above: Performed By: #### L 500.4050, L501.9520, L100.0100, L506.0400, L501.9985 ####[facility] [address] [place], [address] Platelet mean volume (Bld) [Entitic vol] 12.2 fL High 6.2-12.0 [facility] Comment on above: Performed By: #### L 500.4050, L501.9520, L100.0100, L506.0400, L501.9985 ####[facility] [address] [place], [address] Platelets (Bld) [#/Vol] 220 10*3/uL Normal 150-450 [facility] Comment on above: Performed By: #### L 500.4050, L501.9520, L100.0100, L506.0400, L501.9985 ####[facility] [address] [place], [address] RBC (Bld) [#/Vol] 3.38 10*6/uL Low 4.6-6.2 [facility] Comment on above: Performed By: #### L 500.4050, L501.9520, L100.0100, L506.0400, L501.9985 ####[facility] [address] [place], [address] RDW SD 45.8 fl High 35.1-43.9 [facility] Comment on above: Performed By: #### L 500.4050, L501.9520, L100.0100, L506.0400, L501.9985 ####[facility] [address] [place], [address] WBC (Bld) [#/Vol] 5.6 10*3/uL Normal 4.4-11.0 [facility] Comment on above: Performed By: #### L 500.4050, L501.9520, L100.0100, L506.0400, L501.9985 ####[facility] [address] [place], [address] Comprehensive Metabolic [facility] 09-04-2024 Albumin [Mass/Vol] 3.3 g/dL Normal 3.2-5.0 [facility] Comment on above: Performed By: #### L 500.4050, L501.9520, L100.0100, L506.0400, L501.9985 ####[facility] [address] [place], [address] Albumin/Globulin [Mass ratio] 1.0 {ratio} Normal 0.9-2.4 [facility] Comment on above: Performed By: #### L 500.4050, L501.9520, L100.0100, L506.0400, L501.9985 ####[facility] [address] [place], [address] ALK P 37 U/L Low 45-117 [facility] Comment on above: Performed By: #### L 500.4050, L501.9520, L100.0100, L506.0400, L501.9985 ####[facility] [address] [place], [address] ALT [Catalytic activity/Vol] 25 U/L Normal 16-61 [facility] Comment on above: Performed By: #### L 500.4050, L501.9520, L100.0100, L506.0400, L501.9985 ####[facility] [address] [place], [address] AST [Catalytic activity/Vol] 24 U/L Normal 15-37 [facility] Comment on above: Result Comment: Slig ht Hemolysis, Result may be falsely increased. Performed By: #### L 500.4050, L501.9520, L100.0100, L506.0400, L501.9985 ####[facility] [address] [place], [address] Bilirubin [Mass/Vol] 0.40 mg/dL Normal 0.20-1.00 [facility] Comment on above: Result Comment: For patients on eltrombopag therapy, use of Dimension [place] TBIL is not recommended. Performed By: #### L 500.4050, L501.9520, L100.0100, L506.0400, L501.9985 ####[facility] [address] [place], [address] BUN/CRE 11.6 RATIO Normal 10-20 [facility] Comment on above: Performed By: #### L 500.4050, L501.9520, L100.0100, L506.0400, L501.9985 ####[facility] [address] [place], [address] CA,Total 9.0 mg/dL Normal 8.5-10.1 [facility] Comment on above: Performed By: #### L 500.4050, L501.9520, L100.0100, L506.0400, L501.9985 ####[facility] [address] [place], [address] Chloride [Moles/Vol] 103 mmol/L Normal 98-107 [facility] Comment on above: Performed By: #### L 500.4050, L501.9520, L100.0100, L506.0400, L501.9985 ####[facility] [address] [place], [address] CO2 [Moles/Vol] 25.0 mmol/L Normal 21.0-32.0 [facility] Comment on above: Performed By: #### L 500.4050, L501.9520, L100.0100, L506.0400, L501.9985 ####[facility] [address] [place], [address] Creatinine [Mass/Vol] 1.81 mg/dL High 0.70-1.30 [facility] Comment on above: Result Comment: The validity of the calculated GFR GFRAA in patients over 70 years has not been determined. Clinical correlation is essential. Performed By: #### L 500.4050, L501.9520, L100.0100, L506.0400, L501.9985 ####[facility] [address] [place], [address] EST GFR - AA 47 mL/min Low >60 [facility] Comment on above: Result Comment: Afri can [place] GFR Calc Performed By: #### L 500.4050, L501.9520, L100.0100, L506.0400, L501.9985 ####[facility] [address] [place], [address] GAP 5 Normal 5-15 [facility] Comment on above: Performed By: #### L 500.4050, L501.9520, L100.0100, L506.0400, L501.9985 ####[facility] [address] [place], [address] GFR/1.73 sq M.predicted among non-blacks MDRD (S/P/Bld) [Vol rate/Area] 39 mL/min/{1.73_m2} Low >60 [facility] Comment on above: Result Comment: Non- GFR Calc Performed By: #### L 500.4050, L501.9520, L100.0100, L506.0400, L501.9985 ####[facility] [address] [place], [address] Globulin (S) [Mass/Vol] 3.4 g/dL Normal 2.2-4.2 [facility] Comment on above: Performed By: #### L 500.4050, L501.9520, L100.0100, L506.0400, L501.9985 ####[facility] [address] [place], [address] Glucose [Mass/Vol] 246 mg/dL High 74-106 [facility] Comment on above: Result Comment: Gluc ose result greater than or equal to 200 mg/dL suggests DIABETES MELLITUS per A.D.A. criteria. Performed By: #### L 500.4050, L501.9520, L100.0100, L506.0400, L501.9985 ####[facility] [address] [place], [address] Potassium [Moles/Vol] 4.7 mmol/L Normal 3.5-5.1 [facility] Comment on above: Result Comment: Slig ht Hemolysis, Result may be falsely increased. Performed By: #### L 500.4050, L501.9520, L100.0100, L506.0400, L501.9985 ####[facility] [address] [place], [address] Sodium [Moles/Vol] 133 mmol/L Low 136-145 [facility] Comment on above: Performed By: #### L 500.4050, L501.9520, L100.0100, L506.0400, L501.9985 ####[facility] [address] [place], [address] T PROT 6.7 g/dL Normal 6.4-8.2 [facility] Comment on above: Performed By: #### L 500.4050, L501.9520, L100.0100, L506.0400, L501.9985 ####[facility] [address] [place], [address] Urea nitrogen [Mass/Vol] 21 mg/dL High 7-18 [facility] Comment on above: Performed By: #### L 500.4050, L501.9520, L100.0100, L506.0400, L501.9985 ####[facility] [address] [place], [address] Hemoglobin A1con 09-04-2024 HbA1c (Bld) [Mass fraction] 7.5 % High 3.8-5.6 [facility] Comment on above: Result Comment: Norm al < 5.7 % Prediabetic 5.7 - 6.4 % Diabetic >or= 6.5 % Please note range changes. Performed By: #### L 500.4050, L501.9520, L100.0100, L506.0400, L501.9985 ####[facility] [address] [place], [address] T4 Free Directon 09-04-2024 T4 FREE DIRECT 0.89 ng/dL Normal 0.76-1.46 [facility] Comment on above: Performed By: #### L 500.4050, L501.9520, L100.0100, L506.0400, L501.9985 ####[facility] [address] [place], [address] Thyroid Stim Hormone (TSH)on 09-04-2024 TSH 1.780 uIU/mL Normal 0.358-3.740 [facility] Comment on above: Performed By: #### L 500.4050, L501.9520, L100.0100, L506.0400, L501.9985 ####[facility] [address] [place], [address] CBC W Auto Differential pane l (Bld)on 08-05-2024 Basophils (Bld) [#/Vol] 0.10 x10*3/uL Normal 0.00-0.10 [facility] Comment on above: Performed By: #### 5 7021-8 #### LAYLA MENDOZA ([id number]) [facility] ([facility]) [address] [place] [address] Basophils/100 WBC (Bld) 1.4 % Normal 0.0-2.0 [facility] Comment on above: Performed By: #### 5 7021-8 #### LAYLA MENDOZA ([id number]) [facility] ([facility]) [address] [place] [address] Eosinophils (Bld) [#/Vol] 0.38 x10*3/uL Normal 0.00-0.40 [facility] Comment on above: Performed By: #### 5 7021-8 #### LAYLA MENDOZA ([id number]) [facility] ([facility]) [address] [place] [address] Eosinophils/100 WBC (Bld) 5.4 % Normal 0.0-6.0 [facility] Comment on above: Performed By: #### 5 7021-8 #### LAYLA MENDOZA ([id number]) [facility] ([facility]) [address] [place] [address] Erythrocyte distribution width (RBC) [Ratio] 12.8 % Normal 11.5-14.5 [facility] Comment on above: Performed By: #### 5 7021-8 #### LAYLA MENDOAZ ([id number]) [facility] ([facility]) [address] [place] [address] Hematocrit (Bld) [Volume fraction] 40.5 % Low 41.0-52.0 [facility] Comment on above: Performed By: #### 5 7021-8 #### LAYLA MENDOZA ([id number]) [facility] ([facility]) [address] [place] [address] Hemoglobin (Bld) [Mass/Vol] 13.8 g/dL Normal 13.5-17.5 [facility] Comment on above: Performed By: #### 5 7021-8 #### LAYLA MENDOZA ([id number]) [facility] ([facility]) [address] [place] [address] Immature granulocytes (Bld) [#/Vol] 0.04 x10*3/uL Normal 0.00-0.50 [facility] Comment on above: Performed By: #### 5 7021-8 #### LAYLA MENDOZA ([id number]) [facility] ([facility]) [address] [place] [address] Immature granulocytes/100 WBC (Bld) 0.6 % Normal 0.0-0.9 [facility] Comment on above: Result Comment: Yaquelin ture Granulocyte Count (IG) includes promyelocytes, myelocytes and metamyelocytes but does not include bands. Percent differential counts (%) should be interpreted in the context of the absolute cell counts (cells/UL). Performed By: #### 5 7021-8 #### LAYLA MENDOZA ([id number]) [facility] ([facility]) [address] [place] [address] Lymphocytes (Bld) [#/Vol] 2.22 x10*3/uL Normal 0.80-3.00 [facility] Comment on above: Performed By: #### 5 7021-8 #### LAYLA MENDOZA ([id number]) [facility] ([facility]) [address] [place] [address] Lymphocytes/100 WBC (Bld) 31.5 % Normal 13.0-44.0 [facility] Comment on above: Performed By: #### 5 7021-8 #### LAYLA MENDOZA ([id number]) [facility] ([facility]) [address] [place] [address] MCH (RBC) [Entitic mass] 35.8 pg High 26.0-34.0 [facility] Comment on above: Performed By: #### 5 7021-8 #### LAYLA MENDOZA ([id number]) [facility] ([facility]) [address] [place] [address] 60226 MCHC (RBC) [Mass/Vol] 34.1 g/dL Normal 32.0-36.0 [facility] Comment on above: Performed By: #### 5 7021-8 #### LAYLA MENDOZA ([id number]) [facility] ([facility]) [address] [place] [address] 48479 MCV (RBC) [Entitic vol] 105 fL High 80-100 [facility] Comment on above: Performed By: #### 5 7021-8 #### LAYLA MENDOZA ([id number]) [facility] ([facility]) [address] [place] [address] 19296 Monocytes (Bld) [#/Vol] 0.48 x10*3/uL Normal 0.05-0.80 [facility] Comment on above: Performed By: #### 5 7021-8 #### LAYLA MENDOZA ([id number]) [facility] ([facility]) [address] [place] [address] 82962 Monocytes/100 WBC (Bld) 6.8 % Normal 2.0-10.0 [facility] Comment on above: Performed By: #### 5 7021-8 #### LAYLA MENDOZA ([id number]) [facility] ([facility]) [address] [place] [address] 89526 Neutrophils (Bld) [#/Vol] 3.82 x10*3/uL Normal 1.60-5.50 [facility] Comment on above: Result Comment: Perc ent differential counts (%) should be interpreted in the context of the absolute cell counts (cells/uL). Performed By: #### 5 7021-8 #### LAYLA MENDOZA ([id number]) [facility] ([facility]) [address] [place] [address] 81421 Neutrophils/100 WBC (Bld) 54.3 % Normal 40.0-80.0 [facility] Comment on above: Performed By: #### 5 7021-8 #### LAYLA MENDOZA ([id number]) [facility] ([facility]) [address] [place] [address] 57475 Nucleated RBC/100 WBC (Bld) [Ratio] 0.0 /100 WBCs Normal 0.0-0.0 [facility] Comment on above: Performed By: #### 5 7021-8 #### LAYLA MENDOZA ([id number]) [facility] ([facility]) [address] [place] [address] 68825 Platelets (Bld) [#/Vol] 298 x10*3/uL Normal 150-450 [facility] Comment on above: Result Comment: Plat elet count verified by smear review. Performed By: #### 5 7021-8 #### LAYLA MENDOZA ([id number]) [facility] ([facility]) [address] [place] [address] 37881 RBC (Bld) [#/Vol] 3.86 x10*6/uL Low 4.50-5.90 [facility] Comment on above: Performed By: #### 5 7021-8 #### LAYLA MENDOZA ([id number]) [facility] ([facility]) [address] [place] [address] 36407 WBC (Bld) [#/Vol] 7.0 x10*3/uL Normal 4.4-11.3 [facility] Comment on above: Performed By: #### 5 7021-8 #### LAYLA MENDOZA ([id number]) [facility] ([facility]) [address] [place] [address] 23873 Comprehensive metabolic 2000 panelon 08-05-2024 Albumin BCP dye [Mass/Vol] 4.2 g/dL Normal 3.4-5.0 [facility] Comment on above: Performed By: #### 2 4323-8 #### LAYLA MENDOZA ([id number]) [facility] ([facility]) [address] [place] [address] 17942 ALP [Catalytic activity/Vol] 37 U/L Normal 33-136 [facility] Comment on above: Performed By: #### 2 4323-8 #### LAYLA MENDOZA ([id number]) [facility] ([facility]) [address] [place] [address] ALT With P-5'-P [Catalytic activity/Vol] 11 U/L Normal 10-52 [facility] Comment on above: Result Comment: Shey ents treated with Sulfasalazine may generate falsely decreased results for ALT. Performed By: #### 2 432-8 #### LAYLA MENDOZA ([id number]) [facility] ([facility]) [address] [place] [address] Anion gap [Moles/Vol] 12 mmol/L Normal 10-20 [facility] Comment on above: Performed By: #### 2 4322-8 #### LAYLA MENDOZA ([id number]) [facility] ([facility]) [address] [place] [address] AST With P-5'-P [Catalytic activity/Vol] 17 U/L Normal 9-39 [facility] Comment on above: Performed By: #### 2 432-8 #### LAYLA MENDOZA ([id number]) [facility] ([facility]) [address] [place] [address] Bilirubin [Mass/Vol] 0.5 mg/dL Normal 0.0-1.2 [facility] Comment on above: Performed By: #### 2 4322-8 #### LAYLA MENDOZA ([id number]) [facility] ([facility]) [address] [place] [address] Calcium [Mass/Vol] 9.7 mg/dL Normal 8.6-10.3 [facility] Comment on above: Performed By: #### 2 432-8 #### LAYLA MENDOZA ([id number]) [facility] ([facility]) [address] [place] [address] Chloride [Moles/Vol] 100 mmol/L Normal 98-107 [facility] Comment on above: Performed By: #### 2 4323-8 #### LAYLA MENDOZA ([id number]) [facility] ([facility]) [address] [place] [address] CO2 [Moles/Vol] 27 mmol/L Normal 21-32 [facility] Comment on above: Performed By: #### 2 4323-8 #### LAYLA MENDOZA ([id number]) [facility] ([facility]) [address] [place] [address] 79353 Creatinine [Mass/Vol] 1.55 mg/dL High 0.50-1.30 [facility] Comment on above: Performed By: #### 2 4323-8 #### LAYLA MENDOZA ([id number]) [facility] ([facility]) [address] [place] [address] 93371 Glomerular filtration rate/1.73 sq M.predicted 46 mL/min/1.73m*2 Low >60 [facility] Comment on above: Result Comment: Calc ulations of estimated GFR are performed using the 2020 CKD-EPI Study Refit equation without the race variable for the IDMS-Traceable creatinine methods. https://jasn.asnjournals.org/content//ASN.2020 395061 Performed By: #### 2 4323-8 #### LAYLA MENDOZA ([id number]) [facility] ([facility]) [address] [place] [address] 89998 Glucose [Mass/Vol] 164 mg/dL High 74-99 [facility] Comment on above: Performed By: #### 2 4323-8 #### LAYLA MENDOZA ([id number]) [facility] ([facility]) [address] [place] [address] 73462 Potassium [Moles/Vol] 4.1 mmol/L Normal 3.5-5.3 [facility] Comment on above: Performed By: #### 2 4323-8 #### LAYLA MENDOZA ([id number]) [facility] ([facility]) [address] [place] [address] 57109 Protein [Mass/Vol] 7.3 g/dL Normal 6.4-8.2 [facility] Comment on above: Performed By: #### 2 4323-8 #### LAYLA MENDOZA ([id number]) [facility] ([facility]) [address] [place] [address] 61421 Sodium [Moles/Vol] 135 mmol/L Low 136-145 [facility] Comment on above: Performed By: #### 2 4323-8 #### LAYLA MENDOZA ([id number]) [facility] ([facility]) [address] [place] [address] 02180 Urea nitrogen [Mass/Vol] 20 mg/dL Normal 6-23 [facility] Comment on above: Performed By: #### 2 4323-8 #### LYALA MENDOZA ([id number]) [facility] ([facility]) [address] [place] [address] 98084 HbA1c (Bld) [Mass fraction]o n 08-05-2024 Average glucose Estimated from glycated hemoglobin (Bld) [Mass/Vol] 174 mg/dL Normal Not Established [facility] Comment on above: Order Comment: Diagn osis of Diabetes-Adults Non-Diabetic: < or = 5.6% Increased risk for developing diabetes: 5.7-6.4% Diagnostic of diabetes: > or = 6.5% Performed By: #### 4 548-4 #### MANOHAR Duenas ([id number]) [facility] ([facility]) [address] [place] [address] 66378 Hemoglobin A1c/Hemoglobin.to ada 08-05-2024 HbA1c (Bld) [Mass fraction] 7.7 % High See comment [facility] Comment on above: Order Comment: Diagn osis of Diabetes-Adults Non-Diabetic: < or = 5.6% Increased risk for developing diabetes: 5.7-6.4% Diagnostic of diabetes: > or = 6.5% Performed By: #### 4 548-4 #### MANOHAR Duenas ([id number]) [facility] ([facility]) [address] [place] [address] 15042 Magnesiumon 08-05-2024 Magnesium [Mass/Vol] 1.63 mg/dL Normal 1.60-2.40 [facility] Comment on above: Performed By: #### 1 9123-9 #### LAYLA MENDOZA ([id number]) [facility] ([facility]) [address] [place] [address] 19480 TSH WITH REFLEX TO FREE T4 I F ABNORMALon 08-05-2024 TSH Qn 2.72 m[IU]/L Normal 0.44-3.98 [facility] Comment on above: Order Comment: TSH t esting is performed using different testing methodology at [facility] than at other [facility]. Direct result comparisons should only be made within the same method. Performed By: #### T ANA MARIA #### LAYLA MENDOZA ([id number]) [facility] ([facility]) [address] [place] [address] 67557 CBC W Auto Differential pane l (Bld)on 07-09-2024 Basophils (Bld) [#/Vol] 0.10 x10*3/uL Normal 0.00-0.10 [facility] Comment on above: Performed By: #### 5 7021-8 #### LAYLA MENDOZA ([id number]) [facility] ([facility]) [address] [place] [address] 61336 Basophils/100 WBC (Bld) 1.6 % Normal 0.0-2.0 U [facility] Comment on above: Performed By: #### 5 7021-8 #### LAYLA MENDOZA ([id number]) [facility] ([facility]) [address] [place] [address] 05919 Eosinophils (Bld) [#/Vol] 0.26 x10*3/uL Normal 0.00-0.40 [facility] Comment on above: Performed By: #### 5 7021-8 #### LAYLA MENDOZA ([id number]) [facility] ([facility]) [address] [place] [address] 13972 Eosinophils/100 WBC (Bld) 4.2 % Normal 0.0-6.0 [facility] Comment on above: Performed By: #### 5 7021-8 #### LAYLA MENDOZA ([id number]) [facility] ([facility]) [address] [place] [address] 98143 Erythrocyte distribution width (RBC) [Ratio] 13.3 % Normal 11.5-14.5 [facility] Comment on above: Performed By: #### 5 7021-8 #### LAYLA MENDOZA ([id number]) [facility] ([facility]) [address] [place] [address] 48668 Hematocrit (Bld) [Volume fraction] 38.5 % Low 41.0-52.0 [facility] Comment on above: Performed By: #### 5 7021-8 #### LAYLA MENDOZA ([id number]) [facility] ([facility]) [address] [place], [place] [address] Hemoglobin (Bld) [Mass/Vol] 12.4 g/dL Low 13.5-17.5 [facility] Comment on above: Performed By: #### 5 7021-8 #### LAYLA MENDOZA ([id number]) [facility] ([facility]) [address] [place] [address] 84794 Immature granulocytes (Bld) [#/Vol] 0.04 x10*3/uL Normal 0.00-0.50 [facility] Comment on above: Performed By: #### 5 7021-8 #### LAYLA MENDOZA ([id number]) [facility] ([facility]) [address] [place] [address] 89821 Immature granulocytes/100 WBC (Bld) 0.7 % Normal 0.0-0.9 [facility] Comment on above: Result Comment: Yaquelin ture Granulocyte Count (IG) includes promyelocytes, myelocytes and metamyelocytes but does not include bands. Percent differential counts (%) should be interpreted in the context of the absolute cell counts (cells/UL). Performed By: #### 5 7021-8 #### LAYLA MENDOZA ([id number]) [facility] ([facility]) [address] [place] [address] 41269 Lymphocytes (Bld) [#/Vol] 2.37 x10*3/uL Normal 0.80-3.00 [facility] Comment on above: Performed By: #### 5 7021-8 #### LAYLA MENDOZA ([id number]) [facility] ([facility]) [address] [place] [address] 97008 Lymphocytes/100 WBC (Bld) 38.5 % Normal 13.0-44.0 [facility] Comment on above: Performed By: #### 5 7021-8 #### LAYLA MENDOZA ([id number]) [facility] ([facility]) [address] [place] [address] 98846 MCH (RBC) [Entitic mass] 35.3 pg High 26.0-34.0 [facility] Comment on above: Performed By: #### 5 7021-8 #### LAYLA MENDOZA ([id number]) [facility] ([facility]) [address] [place] [address] 58793 MCHC (RBC) [Mass/Vol] 32.2 g/dL Normal 32.0-36.0 [facility] Comment on above: Performed By: #### 5 7021-8 #### LAYLA MENDOZA ([id number]) [facility] ([facility]) [address] [place] [address] 96514 MCV (RBC) [Entitic vol] 110 fL High 80-100 [facility] Comment on above: Performed By: #### 5 7021-8 #### LAYLA MENDOZA ([id number]) [facility] ([facility]) [address] [place] [address] 86561 Monocytes (Bld) [#/Vol] 0.47 x10*3/uL Normal 0.05-0.80 [facility] Comment on above: Performed By: #### 5 7021-8 #### LAYLA MENDOZA ([id number]) [facility] ([facility]) [address] [place] [address] 89891 Monocytes/100 WBC (Bld) 7.6 % Normal 2.0-10.0 [facility] Comment on above: Performed By: #### 5 7021-8 #### LAYLA MENDOZA ([id number]) [facility] ([facility]) [address] [place] [address] 87858 Neutrophils (Bld) [#/Vol] 2.91 x10*3/uL Normal 1.60-5.50 [facility] Comment on above: Result Comment: Perc ent differential counts (%) should be interpreted in the context of the absolute cell counts (cells/uL). Performed By: #### 5 7021-8 #### LAYLA MENDOZA ([id number]) [facility] ([facility]) [address] [place] [address] 76036 Neutrophils/100 WBC (Bld) 47.4 % Normal 40.0-80.0 [facility] Comment on above: Performed By: #### 5 7021-8 #### LAYLA MENDOZA ([id number]) [facility] ([facility]) [address] [place] [address] 36521 Nucleated RBC/100 WBC (Bld) [Ratio] 0.0 /100 WBCs Normal 0.0-0.0 [facility] Comment on above: Performed By: #### 5 7021-8 #### LAYLA MENDOZA ([id number]) [facility] ([facility]) [address] [place] [address] 77118 Platelets (Bld) [#/Vol] 53 x10*3/uL Low 150-450 [facility] Comment on above: Performed By: #### 5 7021-8 #### LAYLA MENDOZA ([id number]) [facility] ([facility]) [address] [place] [address] 27466 RBC (Bld) [#/Vol] 3.51 x10*6/uL Low 4.50-5.90 [facility] Comment on above: Performed By: #### 5 7021-8 #### LAYLA MENDOZA ([id number]) [facility] ([facility]) [address] [place] [address] 53441 WBC (Bld) [#/Vol] 6.2 x10*3/uL Normal 4.4-11.3 [facility] Comment on above: Performed By: #### 5 7021-8 #### LAYLA MENDOZA ([id number]) [facility] ([facility]) [address] [place] [address] 58078 Cobalaminson 07-09-2024 Cobalamin (Vitamin B12) [Mass/Vol] 289 pg/mL Normal 211-911 [facility] Comment on above: Performed By: #### 2 132-9 #### LAYLA MENDOZA ([id number]) [facility] ([facility]) [address] [place] [address] 88344 Ferritinon 07-09-2024 Ferritin [Mass/Vol] 331 ng/mL High 20-300 [facility] Comment on above: Performed By: #### 2 276-4 #### LAYLA MENDOZA ([id number]) [facility] ([facility]) [address] [place] [address] 82184 Folateon 07-09-2024 Folate [Mass/Vol] 3.5 ng/mL Low >5.0 [facility] Comment on above: Order Comment: Low < 3.4 Borderline 3.4-5.0 Normal >5.0 Patients receiving more than 5 mg/day of biotin may have interference in test results. A sample should be taken no sooner than eight hours after previous dose. Contact the testing laboratory for additional information. Performed By: #### 2 284-8 #### LAYLA MENDOZA ([id number]) [facility] ([facility]) [address] [place] [address] 99743 Iron and Iron binding capaci ty panelon 07-09-2024 Iron [Mass/Vol] 110 ug/dL Normal 35-150 [facility] Comment on above: Performed By: #### 5 0190-8 #### LAYLA MENDOZA ([id number]) [facility] ([facility]) [address] [place] [address] 22032 Iron binding capacity [Mass/Vol] 397 ug/dL Normal 240-445 [facility] Comment on above: Performed By: #### 5 0190-8 #### LAYLA MENDOZA ([id number]) [facility] ([facility]) [address] [place] [address] 75016 Iron binding capacity.unsaturated [Mass/Vol] 287 ug/dL Normal 110-370 [facility] Comment on above: Performed By: #### 5 0190-8 #### LAYLA MENDOZA ([id number]) [facility] ([facility]) [facility] [place] [address] Iron saturation [Mass fraction] 28 % Normal 25-45 [facility] Comment on above: Performed By: #### 5 0190-8 #### LAYLA MENDOZA ([id number]) [facility] ([facility]) [address] [place] [address] 88057 Methylmalonateon 07-09-2024 Methylmalonate [Moles/Vol] 0.24 umol/L Normal 0.00-0.40 [facility] Comment on above: Result Comment: INTE RPRETIVE INFORMATION: MMA Serum/Plasma, Vitamin B12 Status This test was developed and its performance characteristics determined by [employer]. It has not been cleared or approved by the [place] Food and Drug Administration. This test was performed in a CLIA certified laboratory and is intended for clinical purposes. Performed By: [employer] [address] [place] [address] Senior Facilities Manager: Eric Humphrey MD, PhD CLIA Number: [id number] Performed By: #### 4 548-4 #### LAYLA MENDOZA ([id number]) [facility] ([facility]) [address] [place] [address] 62512 PROTEIN / CREATININE RATIO, URINEon 06-27-2024 CREATININE,UR 152.0 mg/dL Normal [facility] Comment on above: Performed By: #### 4 7136 #### [facility] [address] [place], [place] [address] Eric Moser M.D. [id number] Protein (U) [Mass/Vol] 52.5 mg/dL Normal [facility] Comment on above: Performed By: #### 4 7136 #### [facility] [address] [place], [place] [address] Eric Moser M.D. [id number] PROTEIN CREATININE RATIO 0.3 ratio High 0.0-0.2 [facility] Comment on above: Performed By: #### 4 7136 #### [facility] [address] [place], [place] [address] Eric Moser M.D. [id number] PTH INTACT (PROCESSED AT [facility] )on 06-27-2024 Calcium [Mass/Vol] 9.8 mg/dL Normal 8.4-10.2 [facility] Comment on above: Performed By: #### 4 6413 #### [facility] [address] [place] [address] Eric Moser M.D. [id number] Order Comment: [facility] has implemented the eGFR calculation approach that does not have a coefficient for race that conforms to the NKF-ASN Task Force Recommendations. Performed By: #### 4 6449 #### [facility] [address] [place] [address] Eric Moser M.D. [id number] PTH INTACT 15.7 pg/mL Normal 12.0-65.0 [facility] Comment on above: Performed By: #### 4 6413 #### [facility] [address] [place] [address] Eric Moser M.D. [id number] RENAL FUNCTION PANELon 06-27 Albumin [Mass/Vol] 3.9 g/dL Normal 3.2-5.2 [facility] Comment on above: Order Comment: [facility] has implemented the eGFR calculation approach that does not have a coefficient for race that conforms to the NKF-ASN Task Force Recommendations. Performed By: #### 4 6449 #### [facility] [address] [place] [address] Eric Moser M.D. [id number] Anion gap [Moles/Vol] 16 mmol/L Normal 10-20 [facility] Comment on above: Order Comment: [facility] has implemented the eGFR calculation approach that does not have a coefficient for race that conforms to the NKF-ASN Task Force Recommendations. Performed By: #### 4 6449 #### [facility] [address] [place] [address] Eric Moser M.D. [id number] Chloride [Moles/Vol] 102 mmol/L Normal 98-108 [facility] Comment on above: Order Comment: [facility] has implemented the eGFR calculation approach that does not have a coefficient for race that conforms to the NKF-ASN Task Force Recommendations. Performed By: #### 4 6449 #### [facility] [address] [place], [place] [address] Eric Moser M.D. [id number] Creatinine [Mass/Vol] 1.46 mg/dL High 0.80-1.30 [facility] Comment on above: Order Comment: [facility] has implemented the eGFR calculation approach that does not have a coefficient for race that conforms to the NKF-ASN Task Force Recommendations. Performed By: #### 4 6449 #### [facility] [address] [place] [id number] Eric Moser M.D. [id number] EGFR 50 mL/min/1.73 m2 Low >=60 [facility] Comment on above: Order Comment: [facility] has implemented the eGFR calculation approach that does not have a coefficient for race that conforms to the NKF-ASN Task Force Recommendations. Result Comment: Telma mated GFR was calculated using the 2020 CKD-EPI creatinine equation. Performed By: #### 4 6449 #### [facility] [address] [place] [address] Eric Moser M.D. [id number] Glucose [Mass/Vol] 178 mg/dL High 65-99 [facility] Comment on above: Order Comment: [facility] has implemented the eGFR calculation approach that does not have a coefficient for race that conforms to the NKF-ASN Task Force Recommendations. Performed By: #### 4 6449 #### [facility] [address] [place], [place] [address] Eric Moser M.D. [id number] HCO3 (Bld) [Moles/Vol] 25 mmol/L Normal 21-32 [facility] Comment on above: Order Comment: [facility] has implemented the eGFR calculation approach that does not have a coefficient for race that conforms to the NKF-ASN Task Force Recommendations. Performed By: #### 4 6449 #### [facility] [address] [place], [place] [address] Eric Moser M.D. [id number] Phosphate [Mass/Vol] 2.7 mg/dL Normal 2.3-3.7 [facility] Comment on above: Order Comment: [facility] has implemented the eGFR calculation approach that does not have a coefficient for race that conforms to the NKF-ASN Task Force Recommendations. Performed By: #### [id number] #### [facility] [address] [place] [id number] Eric Moser M.D. [id number] Potassium [Moles/Vol] 5.0 mmol/L Normal 3.5-5.1 [facility] Comment on above: Order Comment: [facility] has implemented the eGFR calculation approach that does not have a coefficient for race that conforms to the NKF-ASN Task Force Recommendations. Performed By: #### [id number] #### [facility] [address] [place] [id number] Eric Moser M.D. [id number] Sodium [Moles/Vol] 138 mmol/L Normal 135-145 [facility] Comment on above: Order Comment: [facility] has implemented the eGFR calculation approach that does not have a coefficient for race that conforms to the NKF-ASN Task Force Recommendations. Performed By: #### 4 6449 #### LAB [address] [place], [place] [address] Eric Moser M.D. [id number] Urea nitrogen [Mass/Vol] 13 mg/dL Normal 8-25 [facility] Comment on above: Order Comment: [facility] has implemented the eGFR calculation approach that does not have a coefficient for race that conforms to the NKF-ASN Task Force Recommendations. Performed By: #### 4 6449 #### LAB [address] [place], [place] [address] Eric Moser M.D. [id number] Urea nitrogen/Creatinine [Mass ratio] 8.9 mg/mg Low 10.0-20.0 [facility] Comment on above: Order Comment: [facility] has implemented the eGFR calculation approach that does not have a coefficient for race that conforms to the NKF-ASN Task Force Recommendations. Performed By: #### 4 6449 #### LAB [address] [place], [place] [id number] Eric Moser M.D. [id number] WOUND AEROBIC CULTUREon 04-29 WOUND AEROBIC CULTURE AEROBIC CULTURE Few Growth Normal Skin [place] GRAM STAIN RESULT No Organisms Seen Few WBC Many RBC Normal [facility] Comment on above: Performed By: #### 4 4060 #### [facility] [address] [place] [address] Bob Curran M.D. [id number] WOUND ANAEROBIC CULTUREon WOUND ANAEROBIC CULTURE ANAEROBE CULTURE No Anaerobic Growth at 5 Days Normal [facility] Comment on above: Performed By: #### 4 4287 #### [address] [address] Bob Curran M.D. [id number] XR ORTHO FOOT RIGHTon 2023 XR ORTHO FOOT RIGHT 3 views of the right foot reviewed today AP MO and lateral. No acute fracture or dislocation of note. No evidence of cortical lysis or subcutaneous emphysema. Stable x-ray. Dictated by: BHUMIKA LIN on [place] May 19, 2024 10:27:10 AM EDT Transcribed by: BHUMIKA LIN on [place] May 19, 2024 10:27:10 AM EDT Finalized by: BHUMIKA LIN on [place] May 19, 2024 10:27:10 AM EDT Normal [facility] Comment on above: Order Comment: Injur y/Trauma or Illness?:Illness/Other How long have you had these symptoms (acute/chronic)?:Unknown Reason for exam?:Right great toe History of cancer?:Unknown Surgeries, chemotherapy, or radiation?:Unknown Type of Exam?:Initial Additional signs and symptoms?:Right great toe CBC W Auto Differential pane l (Bld)on 04-25-2024 Basophils (Bld) [#/Vol] 0.10 x10*3/uL Normal 0.00-0.10 [facility] Comment on above: Performed By: #### 5 7021-8 #### LAYLA MENDOZA ([id number]) [facility] ([facility]) [address] [place] [address] 53956 Basophils/100 WBC (Bld) 1.2 % Normal 0.0-2.0 [facility] Comment on above: Performed By: #### 7021-8 #### LAYLA MENDOZA ([id number]) [facility] ([facility]) [address] [place] [address] 02283 Eosinophils (Bld) [#/Vol] 0.36 x10*3/uL Normal 0.00-0.40 [facility] Comment on above: Performed By: #### 7021-8 #### LAYLA MENDOZA ([id number]) [facility] ([facility]) [address] [place] [address] 45915 Eosinophils/100 WBC (Bld) 4.4 % Normal 0.0-6.0 [facility] Comment on above: Performed By: #### 7021-8 #### LAYLA MENDOZA ([id number]) [facility] ([facility]) [address] [place] [address] 28727 Erythrocyte distribution width (RBC) [Ratio] 14.0 % Normal 11.5-14.5 [facility] Comment on above: Performed By: #### 5 7021-8 #### LAYLA MENDOZA ([id number]) [facility] ([facility]) [address] [place] [address] 87203 Hematocrit (Bld) [Volume fraction] 36.8 % Low 41.0-52.0 [facility] Comment on above: Performed By: #### 5 7021-8 #### LAYLA MENDOZA ([id number]) [facility] ([facility]) [address] [place] [address] 42739 Hemoglobin (Bld) [Mass/Vol] 12.2 g/dL Low 13.5-17.5 [facility] Comment on above: Performed By: #### 5 7021-8 #### LAYLA MENDOZA ([id number]) [facility] ([facility]) [address] [place] [address] 27356 Immature granulocytes (Bld) [#/Vol] 0.02 x10*3/uL Normal 0.00-0.50 [facility] Comment on above: Performed By: #### 5 7021-8 #### LAYLA MENDOZA ([id number]) [facility] ([facility]) [address] [place] [address] 89097 Immature granulocytes/100 WBC (Bld) 0.2 % Normal 0.0-0.9 [facility] Comment on above: Result Comment: Yaquelin ture Granulocyte Count (IG) includes promyelocytes, myelocytes and metamyelocytes but does not include bands. Percent differential counts (%) should be interpreted in the context of the absolute cell counts (cells/UL). Performed By: #### 5 7021-8 #### LAYLA MENDOZA ([id number]) [facility] ([facility]) [address] [place] [address] 68118 Lymphocytes (Bld) [#/Vol] 2.88 x10*3/uL Normal 0.80-3.00 [facility] Comment on above: Performed By: #### 5 7021-8 #### LAYLA MENDOZA ([id number]) [facility] ([facility]) [address] [place] [address] 99906 Lymphocytes/100 WBC (Bld) 35.3 % Normal 13.0-44.0 [facility] Comment on above: Performed By: #### 5 7021-8 #### LAYLA MENDOZA ([id number]) [facility] ([facility]) [address] [place] [address] 88102 MCH (RBC) [Entitic mass] 35.0 pg High 26.0-34.0 [facility] Comment on above: Performed By: #### 5 7021-8 #### LAYLA MENDOZA ([id number]) [facility] ([facility]) [address] [place] [address] 91916 MCHC (RBC) [Mass/Vol] 33.2 g/dL Normal 32.0-36.0 [facility] Comment on above: Performed By: #### 5 7021-8 #### LAYLA MENDOZA ([id number]) [facility] ([facility]) [address] [place] [address] 20594 MCV (RBC) [Entitic vol] 105 fL High 80-100 [facility] Comment on above: Performed By: #### 5 7021-8 #### LAYLA MENDOZA ([id number]) [facility] ([facility]) [address] [place] [address] 92512 Monocytes (Bld) [#/Vol] 0.79 x10*3/uL Normal 0.05-0.80 [facility] Comment on above: Performed By: #### 5 7021-8 #### LAYLA MENDOZA ([id number]) [facility] ([facility]) [address] [place] [address] 10437 Monocytes/100 WBC (Bld) 9.7 % Normal 2.0-10.0 [facility] Comment on above: Performed By: #### 5 7021-8 #### LAYLA MENDOZA ([id number]) [facility] ([facility]) [address] [place] [address] 65445 Neutrophils (Bld) [#/Vol] 4.01 x10*3/uL Normal 1.60-5.50 [facility] Comment on above: Result Comment: Perc ent differential counts (%) should be interpreted in the context of the absolute cell counts (cells/uL). Performed By: #### 5 7021-8 #### LAYLA MENDOZA ([id number]) [facility] ([facility]) [address] [place] [address] 58608 Neutrophils/100 WBC (Bld) 49.2 % Normal 40.0-80.0 [facility] Comment on above: Performed By: #### 5 7021-8 #### LAYLA MENDOZA ([id number]) [facility] ([facility]) [address] [place] [address] 11895 Nucleated RBC/100 WBC (Bld) [Ratio] 0.0 /100 WBCs Normal 0.0-0.0 [facility] Comment on above: Performed By: #### 5 7021-8 #### LAYLA MENDOZA ([id number]) [facility] ([facility]) [address] [place] [address] Platelets (Bld) [#/Vol] 282 x10*3/uL Normal 150-450 [facility] Comment on above: Performed By: #### 5 7021-8 #### LAYLA MENDOZA ([id number]) [facility] ([facility]) [address] [place] [address] RBC (Bld) [#/Vol] 3.49 x10*6/uL Low 4.50-5.90 [facility] Comment on above: Performed By: #### 5 7021-8 #### LAYLA MENDOZA ([id number]) [facility] ([facility]) [address] [place] [address] WBC (Bld) [#/Vol] 8.2 x10*3/uL Normal 4.4-11.3 [facility] Comment on above: Performed By: #### 5 7021-8 #### LAYLA MENDOZA ([id number]) [facility] ([facility]) [address] [place] [address] Comprehensive metabolic 2000 panelon 04-25-2024 Albumin BCP dye [Mass/Vol] 4.2 g/dL Normal 3.4-5.0 [facility] Comment on above: Performed By: #### 2 4323-8 #### LAYLA MENDOZA ([id number]) [facility] ([facility]) [address] [place] [address] ALP [Catalytic activity/Vol] 40 U/L Normal 33-136 [facility] Comment on above: Performed By: #### 2 4323-8 #### LAYLA MENDOZA ([id number]) [facility] ([facility]) [address] [place] [address] 82938 ALT With P-5'-P [Catalytic activity/Vol] 14 U/L Normal 10-52 [facility] Comment on above: Result Comment: Shey ents treated with Sulfasalazine may generate falsely decreased results for ALT. Performed By: #### 2 4323-8 #### LAYLA MENDOZA ([id number]) [facility] ([facility]) [address] [place] [address] Anion gap [Moles/Vol] 14 mmol/L Normal 10-20 [facility] Comment on above: Performed By: #### 2 4323-8 #### LAYLA MENDOZA ([id number]) [facility] ([facility]) [address] [place] [address] AST With P-5'-P [Catalytic activity/Vol] 17 U/L Normal 9-39 [facility] Comment on above: Performed By: #### 2 4323-8 #### LAYLA MENDOZA ([id number]) [facility] ([facility]) [address] [place] [address] Bilirubin [Mass/Vol] 0.4 mg/dL Normal 0.0-1.2 [facility] Comment on above: Performed By: #### 2 4322-8 #### LAYLA MENDOZA ([id number]) [facility] ([facility]) [address] [place] [address] 87186 Calcium [Mass/Vol] 9.5 mg/dL Normal 8.6-10.3 [facility] Comment on above: Performed By: #### 2 4322-8 #### LAYLA MENDOZA ([id number]) [facility] ([facility]) [address] [place] [address] 38013 Chloride [Moles/Vol] 103 mmol/L Normal 98-107 [facility] Comment on above: Performed By: #### 2 432-8 #### LAYLA MENDOZA ([id number]) [facility] ([facility]) [address] [place] [address] 07225 CO2 [Moles/Vol] 21 mmol/L Normal 21-32 [facility] Comment on above: Performed By: #### 2 4323-8 #### LAYLA MENDOZA ([id number]) [facility] ([facility]) [address] [place] [address] 64573 Creatinine [Mass/Vol] 1.44 mg/dL High 0.50-1.30 [facility] Comment on above: Performed By: #### 2 4322-8 #### LAYLA MENDOZA ([id number]) [facility] ([facility]) [facility] [place] [address] Glomerular filtration rate/1.73 sq M.predicted 51 mL/min/1.73m*2 Low >60 [facility] Comment on above: Result Comment: Calc ulations of estimated GFR are performed using the 2020 CKD-EPI Study Refit equation without the race variable for the IDMS-Traceable creatinine methods. https://jasn.asnjournals.org/content/early/ASN.2020 571939 Performed By: #### 2 4323-8 #### LAYLA MENDOZA ([id number]) [facility] ([facility]) [address] [place] [address] 21828 Glucose [Mass/Vol] 192 mg/dL High 74-99 [facility] Comment on above: Performed By: #### 2 4322-8 #### LAYLA MENDOZA (26054) [facility] ([facility]) [address] [place] [address] 49905 Potassium [Moles/Vol] 4.3 mmol/L Normal 3.5-5.3 [facility] Comment on above: Performed By: #### 2 4323-8 #### LAYLA MENDOZA ([id number]) [facility] ([facility]) [address] [place] [address] 94328 Protein [Mass/Vol] 6.9 g/dL Normal 6.4-8.2 [facility] Comment on above: Performed By: #### 2 4323-8 #### LAYLA MENDOZA ([id number]) [facility] ([facility]) [address] [place] [address] 75947 Sodium [Moles/Vol] 134 mmol/L Low 136-145 [facility] Comment on above: Performed By: #### 2 4323-8 #### LAYLA MENDOZA ([id number]) [facility] ([facility]) [address] [place] [address] 84500 Urea nitrogen [Mass/Vol] 22 mg/dL Normal 6-23 [facility] Comment on above: Performed By: #### 2 4323-8 #### LAYLA MENDOZA ([id number]) [facility] ([facility]) [address] [place] [address] HbA1c (Bld) [Mass fraction]o n 04-25-2024 Average glucose Estimated from glycated hemoglobin (Bld) [Mass/Vol] 192 mg/dL Normal Not Established [facility] Comment on above: Order Comment: Diagn osis of Diabetes-Adults Non-Diabetic: < or = 5.6% Increased risk for developing diabetes: 5.7-6.4% Diagnostic of diabetes: > or = 6.5% Performed By: #### 4 548-4 #### LAYLA MENDOZA ([id number]) [facility] ([facility]) [address] [place], [place] [address] Hemoglobin A1c/Hemoglobin.to ada 04-25-2024 HbA1c (Bld) [Mass fraction] 8.3 % High see below [facility] Comment on above: Order Comment: Diagn osis of Diabetes-Adults Non-Diabetic: < or = 5.6% Increased risk for developing diabetes: 5.7-6.4% Diagnostic of diabetes: > or = 6.5% Performed By: #### 4 548-4 #### LAYLA MENDOZA ([id number]) [facility] ([facility]) [address] [place], [place] [address] Lipid 1996 panelon 4 Cholesterol [Mass/Vol] 181 mg/dL Normal 0-199 [facility] above: Result Comment: Age Desirable Borderline High High 0-19 Y 0 - 169 170 - 199 >/= 200 20-24 Y 0 - 189 190 - 224 >/= 225 >24 Y 0 - 199 200 - 239 >/= 240 All ranges are based on fasting samples. Specific therapeutic targets will vary based on patient-specific cardiac risk. Pediatric guidelines reference:Pediatrics 2011, 128(S5).Adult guidelines reference: NCEP ATPIII Guidelines,JE 2001, 258:2486-97 Venipuncture immediately after or during the administration of Metamizole may lead to falsely low results. Testing should be performed immediately prior to Metamizole dosing. Performed By: #### 2 4331-1 #### LAYLA MENDOZA ([id number]) [facility] ([facility]) [facility] [place] [address] Cholesterol in HDL [Mass/Vol] 34.0 mg/dL Normal [facility] Comment on above: Result Comment: Age Very Low Low Normal High 0-19 Y < 35 < 40 40-45 ---- 20-24 Y ---- < 40 >45 ---- >24 Y ---- < 40 40-60 >60 Performed By: #### 2 4331-1 #### LAYLA MENDOZA ([id number]) [facility] ([facility]) [address] [place] [address] 42463 Cholesterol in LDL [Mass/Vol] Normal [facility] Comment on above: Result Comment: The calculation of LDL and VLDL are inaccurate when the Triglycerides are greater than 400 mg/dL or when the patient is non-fasting. If LDL measurement is necessary contact the testing laboratory for an alternative LDL assay. Near Borderline AGE Desirable Optimal High High Very High 0-19 Y 0 - 109 --- 110-129 >/= 130 ---- 20-24 Y 0 - 119 --- 120-159 >/= 160 ---- >24 Y 0 - 99 100-129 130-159 160-189 >/=190 Performed By: #### 2 4331-1 #### LAYLA MENDOZA ([id number]) [facility] ([facility]) [address] [place] [address] 89946 CHOLESTEROL/HDL RATIO 5.3 Normal [facility] Comment on above: Result Comment: Ref Values Desirable < 3.4 High Risk > 5.0 Performed By: #### 2 4331-1 #### LAYLA MENDOZA ([id number]) [facility] ([facility]) [facility] [place] [address] NON HDL CHOLESTEROL 147 mg/dL Normal 0-149 [facility] Comment on above: Result Comment: Age Desirable Borderline High High Very High 0-19 Y 0 - 119 120 - 144 >/= 145 >/= 160 20-24 Y 0 - 149 150 - 189 >/= 190 ---- >24 Y 30 mg/dL above LDL Cholesterol goal Performed By: #### 2 4331-1 #### LAYLA MENDOZA ([id number]) [facility] ([facility]) [facility] [place] [address] Triglyceride [Mass/Vol] 546 mg/dL High 0-149 [facility] Comment on above: Result Comment: Age Desirable Borderline High High Very High 0 D-90 D 19 - 174 ---- ---- ---- 91 D- 9 Y 0 - 74 75 - 99 >/= 100 ---- 10-19 Y 0 - 89 90 - 129 >/= 130 ---- 20-24 Y 0 - 114 115 - 149 >/= 150 ---- >24 Y 0 - 149 150 - 199 200- 499 >/= 500 Venipuncture immediately after or during the administration of Metamizole may lead to falsely low results. Testing should be performed immediately prior to Metamizole dosing. Performed By: #### 2 4331-1 #### LAYLA MENDOZA ([id number]) [facility] ([facility]) [address] [place] [address] VLDL Normal [facility] Comment on above: Result Comment: Unab le to calculate VLDL. Performed By: #### 2 4331-1 #### LAYLA MENDOZA ([id number]) [facility] ([facility]) [address] [place] [address] Prostate specific Agon 04-25 Prostate specific Ag [Mass/Vol] 0.95 ng/mL Normal <=4.00 [facility] Comment on above: Order Comment: The DA requires that the method used for PSA assay be reported to the physician. Values obtained with different assay methods must not be used interchangeably. This test was performed at [facility] using the [employer] PSA assay is a two-site immunoenzymatic sandwich assay. The assay is approved for measurement of prostate-specific antigen (PSA)in serum and may be used in conjunction with a digital rectal examination in men 50 years and older as an aid in detection of prostate cancer. 9-Nptbg-bxnxsyhqa inhibitors (e.g. Proscar, Finasteride, Avodart, Dutasteride and Carmenza) for the treatment of BPH have been shown to lower PSA levels by an average of 50% after 6 months of treatment. Performed By: #### 2 857-1 #### RICH REJI ([id number]) [facility] ([facility]) [address] [place] [address] US DOPPLER SEGMENTAL ARTERIA L LEGS BILATERALon 03-21-2024 US DOPPLER SEGMENTAL ARTERIAL LEGS BILATERAL Patient Info Name: STEVO ELIZALDE Age: 74 years : 1950 Gender: Male Exam Date: 03/21/2024 3:08 PM Patient Status: Outpatient Enrollment Representative: Albert Sandra RVT Referring Physician: BUDDY LIN II ; Indications - non palpable pulses, tobacco use I73.9 - Peripheral vascular disease, unspecified Procedure Description 62540 Limited bilateral noninvasive physiologic studies of upper or lower extremity arteries with bidirectional Doppler/PVR waveform analysis at 1-2 levels. Conclusions * Right. * Right ankle brachial index is normal. CLEMENCIA is 0.94. * No evidence of small vessel disease at the transmetatarsal level in the right foot. * Right toe brachial index is normal. * Left. * Left ankle brachial index indicates mild peripheral artery disease noted at the iliofemoral level(s). CLEMENCIA is 0.78. * Mild small vessel disease at the transmetatarsal level in the left foot. * Left toe brachial index is abnormal. * Previous exam : right CLEMENCIA .99 ; left CLEMENCIA .87. Recommendations * Mild arterial insufficiency at rest on the left. Clinical correlation for signs/symptoms of PAD, further delineation with duplex or angiogram if warranted. . Doppler Rt Common Femoral: Triphasic Rt Popliteal: Triphasic Rt Posterior Tibial: Triphasic Rt Dorsalis Pedis: Triphasic Lt Common Femoral: Biphasic Lt Popliteal: Biphasic Lt Posterior Tibial: Biphasic Lt Dorsalis Pedis: Biphasic PVR Rt Thigh: Normal Rt Calf: Normal Rt Ankle: Normal Lt Thigh: Abnormal Lt Calf: Abnormal Lt Ankle: Abnormal Rt Digit: Normal Lt Digit: Abnormal Rt Brachial: 168 Rt Thigh: 156 Rt Calf: 156 Rt Posterior Tibial: 163 Rt Dorsalis Pedis: 159 Rt Digit: 155 0.90 0.90 0.94 0.91 0.89 Lt Brachial: 174 Lt Thigh: 128 Lt Calf: 122 Lt Posterior Tibial: 135 Lt Dorsalis Pedis: 131 Lt Digit: 111 0.74 0.70 0.78 0.75 0.64 Prior Study Date: 03/17/2022 Risk Factors Patient has a history of hypertension, hyperlipidemia, diabetes, tobacco use-current and PAD. COPD. CKD. . Report Signatures Finalized by Maximino Chaparro MD on 03/21/2024 04:04 PM Normal [facility] COMPREHENSIVE METABOLIC PANE Jer 03-08-2024 Albumin [Mass/Vol] 3.9 g/dL Normal 3.2-5.2 [facility] Comment on above: Order Comment: [facility] has implemented the eGFR calculation approach that does not have a coefficient for race that conforms to the NKF-ASN Task Force Recommendations. Performed By: #### 4 6126 #### [facility] [address] [place] [address] 74377 Bob Curran M.D. [id number] ALP [Catalytic activity/Vol] 53 U/L Normal 40-150 [facility] Comment on above: Order Comment: [facility] has implemented the eGFR calculation approach that does not have a coefficient for race that conforms to the NKF-ASN Task Force Recommendations. Performed By: #### 4 6126 #### [facility] [address] [place], [place] [id number] Bob Curran M.D. [id number] ALT [Catalytic activity/Vol] 12 U/L Normal 0-50 U/L [facility] Comment on above: Order Comment: [facility] has implemented the eGFR calculation approach that does not have a coefficient for race that conforms to the NKF-ASN Task Force Recommendations. Performed By: #### 4 6126 #### [facility] [address] [place] [address] 66379 Bob Curran M.D. [id number] Anion gap [Moles/Vol] 17 mmol/L Normal 10-20 [facility] Comment on above: Order Comment: [facility] has implemented the eGFR calculation approach that does not have a coefficient for race that conforms to the NKF-ASN Task Force Recommendations. Performed By: #### 4 6126 #### [facility] [address] [place] [address] 07965 Bob Curran M.D. [id number] AST [Catalytic activity/Vol] 16 U/L Normal 0-50 U/L [facility] Comment on above: Order Comment: [facility] has implemented the eGFR calculation approach that does not have a coefficient for race that conforms to the NKF-ASN Task Force Recommendations. Performed By: #### 4 6126 #### [facility] [address] [place] [address] 46194 Bob Curran M.D. [id number] Bilirubin [Mass/Vol] 0.3 mg/dL Normal 0.0-1.3 [facility] Comment on above: Order Comment: [facility] has implemented the eGFR calculation approach that does not have a coefficient for race that conforms to the NKF-ASN Task Force Recommendations. Performed By: #### 4 6126 #### [facility] [address] [place] [address] 56050 Bob Curran M.D. [id number] Calcium [Mass/Vol] 9.4 mg/dL Normal 8.4-10.2 [facility] Comment on above: Order Comment: [facility] has implemented the eGFR calculation approach that does not have a coefficient for race that conforms to the NKF-ASN Task Force Recommendations. Performed By: #### 4 [id number] #### [facility] [address] [place] [address] Bob Curran M.D. [id number] Chloride [Moles/Vol] 99 mmol/L Normal 98-108 [facility] Comment on above: Order Comment: [facility] has implemented the eGFR calculation approach that does not have a coefficient for race that conforms to the NKF-ASN Task Force Recommendations. Performed By: #### 4 6126 #### [facility] [address] [place] [address] Bob Curran M.D. [id number] Creatinine [Mass/Vol] 1.33 mg/dL High 0.80-1.30 [facility] Comment on above: Order Comment: [facility] has implemented the eGFR calculation approach that does not have a coefficient for race that conforms to the NKF-ASN Task Force Recommendations. Performed By: #### 4 [id number] #### [facility] [address] [place], [place] [id number] Bob Curran M.D. [id number] EGFR 56 mL/min/1.73 m2 Low >=60 [facility] Comment on above: Order Comment: [facility] has implemented the eGFR calculation approach that does not have a coefficient for race that conforms to the NKF-ASN Task Force Recommendations. Result Comment: Telma mated GFR was calculated using the 2020 CKD-EPI creatinine equation. Performed By: #### 4 [id number] #### [facility] [address] [place], [place] [id number] Bob Curran M.D. [id number] Glucose [Mass/Vol] 201 mg/dL High 65-99 [facility] Comment on above: Order Comment: [facility] has implemented the eGFR calculation approach that does not have a coefficient for race that conforms to the NKF-ASN Task Force Recommendations. Performed By: #### 4 [id number] #### [facility] [address] [place], [place] [id number] Bob Curran M.D. [id number] HCO3 (Bld) [Moles/Vol] 22 mmol/L Normal 21-32 [facility] Comment on above: Order Comment: [facility] has implemented the eGFR calculation approach that does not have a coefficient for race that conforms to the NKF-ASN Task Force Recommendations. Performed By: #### 4 6126 #### [facility] [address] [place], [place] [id number] Bob Curran M.D. [id number] Potassium [Moles/Vol] 4.9 mmol/L Normal 3.5-5.1 [facility] Comment on above: Order Comment: [facility] has implemented the eGFR calculation approach that does not have a coefficient for race that conforms to the NKF-ASN Task Force Recommendations. Performed By: #### 4 6126 #### [facility] [address] [place] [address] Bob Curran M.D. [id number] Protein [Mass/Vol] 7.3 g/dL Normal 6.0-8.0 [facility] Comment on above: Order Comment: [facility] has implemented the eGFR calculation approach that does not have a coefficient for race that conforms to the NKF-ASN Task Force Recommendations. Performed By: #### 4 6126 #### [facility] [address] [place] [address] Bob Curran M.D. [id number] Sodium [Moles/Vol] 133 mmol/L Low 135-145 [facility] Comment on above: Order Comment: [facility] has implemented the eGFR calculation approach that does not have a coefficient for race that conforms to the NKF-ASN Task Force Recommendations. Performed By: #### 4 6126 #### [facility] [address] [place] [address] Bob Curran M.D. [id number] Urea nitrogen [Mass/Vol] 23 mg/dL Normal 8-25 [facility] Comment on above: Order Comment: [facility] has implemented the eGFR calculation approach that does not have a coefficient for race that conforms to the NKF-ASN Task Force Recommendations. Performed By: #### 4 6126 #### [facility] [address] [place] [address] Bob Curran M.D. [id number] Urea nitrogen/Creatinine [Mass ratio] 17.3 mg/mg Normal 10.0-20.0 [facility] Comment on above: Order Comment: [facility] has implemented the eGFR calculation approach that does not have a coefficient for race that conforms to the NKF-ASN Task Force Recommendations. Performed By: #### 4 6126 #### [facility] [address] [place] [address] Bob Curran M.D. [id number] HEMOGLOBIN A1Con 03-08-2024 Glucose [Mass/Vol] 214 mg/dL High 74-114 [facility] Comment on above: Order Comment: Keturah l: 4.2% - 5.6% Increased risk for diabetes: 5.7% - 6.4% Diabetes: >= 6.5% Pediatrics: No established reference range Estimated average glucose: 74-114 mg/dL Performed By: #### 4 8202 #### [facility] [address] [place], [place] [id number] Bob Curran M.D. [id number] HbA1c (Bld) [Mass fraction] 9.1 % High 4.2-5.6 [facility] Comment on above: Order Comment: Keturah l: 4.2% - 5.6% Increased risk for diabetes: 5.7% - 6.4% Diabetes: >= 6.5% Pediatrics: No established reference range Estimated average glucose: 74-114 mg/dL Performed By: #### 4 8202 #### [facility] [address] [place], [place] [id number] Bob Curran M.D. [id number] LIPID PANELon 03-08-2024 Cholesterol [Mass/Vol] 161 mg/dL Normal 100-199 [facility] Comment on above: Performed By: #### 4 6087 #### [facility] [address] [place], [place] [id number] Bob Curran M.D. [id number] Cholesterol in HDL [Mass/Vol] 34 mg/dL Low 40-59 [facility] Comment on above: Performed By: #### 4 6069 #### [facility] [address] [place] [address] 13670 Bob Curran M.D. [id number] Cholesterol.total/Caren sterol in HDL [Mass ratio] 4.7 {ratio} Normal [facility] Comment on above: Result Comment: Male s Cholesterol/HDL Ratio: Average risk: 5.0 1/2 average risk: 3.4 2 x average risk: 9.6 Performed By: #### 4 6087 #### [facility] [address] [place], [place] [id number] Bob Curran M.D. [id number] LDL CHOLESTEROL CALCULATED 68 mg/dL Normal 10-130 [facility] Comment on above: Result Comment: [place] Cholesterol Education Program Guidelines: LDL Cholesterol Optimal: <100 mg/dL Near Optimal/above Optimal: 100-129 mg/dL Borderline High: 130-159 mg/dL High: 160-189 mg/dL Very High: greater than or equal to 190 mg/dL Performed By: #### 4 6087 #### [facility] [address] [place] [address] Bob Curran M.D. [id number] NON HDL CHOL 127 mg/dL Normal [facility] Comment on above: Result Comment: [place] [employer] Cholesterol Education Program Guidelines: NON HDL Cholesterol Desirable: <130 mg/dL Borderline High: 130-159 mg/dL High: 160-189 mg/dL Very High: > or = 190 mg/dL Performed By: #### 4 6087 #### [facility] [address] [place], [place] [id number] Bob Curran M.D. [id number] Triglyceride [Mass/Vol] 294 mg/dL High 30-150 [facility] Comment on above: Performed By: #### 4 [id number] #### [facility] [address] [place], [place] [id number] Bob Curran M.D. [id number] MICROALBUMIN/CREATININE RATI O, UR RANDOMon 03-08-2024 Albumin DL <= 20 mg/L (U) [Mass/Vol] 33.6 mg/dL High 0.0-1.8 [facility] Comment on above: Performed By: #### L [id number] #### [facility] [address] [place] [address] Eric Moser M.D. [id number] CREATININE, URINE, RANDOM 79.5 mg/dL Normal [facility] Comment on above: Performed By: #### L [id number] #### LAB [address] [place], [place] [address] Eric Moser M.D. [id number] MICROALBUMIN/CREATININE RATIO 423 mg/g crea High 0-25 [facility] Comment on above: Performed By: #### L [id number] #### [facility] [address] [place] [address] Eric Moser M.D. [id number] T4, FREEon 03-08-2024 Free T4 [Mass/Vol] 1.1 ng/dL Normal 0.7-1.7 [facility] Comment on above: Performed By: #### 4 6567 #### [facility] [address] [place] [address] Bob Curran M.D. [id number] TSHon 03-08-2024 TSH Qn 1.99 m[IU]/L Normal 0.27-4.20 [facility] Comment on above: Performed By: #### 4 6613 #### [facility] [address] [place] [address] Bob Curran M.D. [id number] COVID-19/INFLUENZA A,B MOLEC ULARon 02-22-2024 SARS-CoV-2 (COVID-19) Ab IA Ql SARS-COV-2 (EDITH): Not Detected INFLUENZA A (EDITH): Not Detected INFLUENZA B (EDITH): Not Detected Normal Not Detected [facility] Comment on above: Performed By: #### L [id number] #### [facility] [address] [place] [id number] Eric Moser M.D. [id number] XR CHEST PA/APon 02-22-2024 XR CHEST PA/AP EXAMINATION: XR CHEST PA/AP 02/22/2024 1:41 pm HISTORY: ORDERING SYSTEM PROVIDED HISTORY: cough, TECHNOLOGIST PROVIDED HISTORY: Illness/Other Reason for exam: cough Cancer History: un Surgery, RadiationHistory: un Encounter Type: Initial Additional signs and symptoms: cough x2 days ORDERING SYSTEM PROVIDED DIAGNOSIS CODES: COMPARISON: 02/27/2023 FINDINGS: Heart and vascularity are unremarkable. There is hyperexpansion of the lungs. Lungs are free of focal infiltrates. Early atherosclerotic changes of the thoracic aorta are noted. There is an old healed rib fracture involving the right 4th rib posteriorly and is unchanged. IMPRESSION: No acute heart or lung disease identified. Workstation ID: [id number] Dictated by: BIB CRUZ on MonFeb 22, 2024 1:57:59 PM EDT Transcribed by: BIB CRUZ on MonFeb 22, 2024 1:57:59 PM EDT Finalized by: BIB CRUZ on MonFeb 22, 2024 1:57:59 PM EDT Normal [facility] Comment on above: Order Comment: Injur y/Trauma or Illness?:Illness/OtherHow long have you had these symptoms (acute/chronic)?:AcuteReason for exam?:coughHistory of cancer?:unSurgeries, chemotherapy, or radiation?:unType of Exam?:InitialAdditional signs and symptoms?:cough x2 days Medicare Annual Wellness Vis iton 12-28-2022 Medicare Annual Wellness Visit *Chief Complaint MEDICARE WELLNESS. NIFEDIPINE STOPPED DUE TO LOW BP (STOPPED BY KIDNEY DR). NEEDS MED REFILLS History of Present Illness The patient is being seen for the subsequent annual wellness visit. Past Medical, Surgical and Family History: reviewed and updated in chart. Medications and Supplements: Review of all medications by a prescribing practitioner or clinical pharmacist (such as prescriptions, OTCs, herbal therapies and supplements) documented in the medical record. No, the patient is not using opioids. Patient Self Assessment of Health Status: good. Tobacco use: User Alcohol use: User Illicit drug use: Non-User Current diet: Heart Healthy Diet and Diabetic Diet. Exercise Frequency: regularly. Depression/Suicide Screening: Patient has a current diagnosis of depression. Hearing Impairment: Patient has slight hearing impairment, bilaterally. Cognitive Impairment: No cognitive impairment observed. Bathing: performs independently. Dressing: performs independently. Walking: needs assistance. Managing Finances: performs independently. Shopping: needs assistance. Managing Medications: needs assistance. Housework / Basic Home Maintenance: dependent. Falls Risk Screening:Vito ZAMORA has not fallen in the last 6 months. Home safety risk factors: none. Advance directives:. Advance Care Planning discussed and documented in the medical record, patient did not wish or was not able to name a surrogate decision maker or provide an advance care plan. LAB F/U (WAS ORDERED BY HAND GRINDER), MED REFILL. SORE THROAT SINCE THIS MORNING, NO COUGH . HASN'T DONE THE COVID TEST..NIFEDIPINE WAS D/C FOR CAUSING HYPOTENSION. B/L LEG WEAKNESS, PHYSICAL TX HELPED IN THE PAST, MEDICARE WELLNESS EXAM.. DM2, HTN, CRF , COPD ,DEPRESSION ,AORTIC ANEURYSM , VASCULAR MYELOPATHY AND DIABETIC NEUROPATHY HAVE BEEN STABLE. Review of Systems Constitutional: not feeling poorly, no fever, no recent weight gain and no recent weight loss. Eyes: no blurred vision and no diplopia. ENT: no hearing loss, no tinnitus, no earache, no sore throat, no hoarseness, no swollen glands in the neck and as noted in HPI. Cardiovascular: no chest pain, no tightness or heavy pressure, no shortness of breath, no palpitations and no lower extremity edema. Respiratory: no cough, not coughing up sputum and no wheezing that is consistent with asthma. Gastrointestinal: no change in bowel habits, no diarrhea, no constipation, no bloody stools, no nausea, no vomiting, no abdominal pain, no signs and symptoms of ulcer disease, no leila colored stools and no intolerance to fatty foods. Genitourinary: no urinary frequency, no dysuria, no hematuria, no burning sensation during urination, urinary stream is not smaller and urinary stream does not start and stop. Musculoskeletal: no arthralgias, no joint stiffness, no muscle weakness, no back pain, no difficulty walking and as noted in HPI. Skin: no rashes, no change in skin color and pigmentation, no skin lesions and no skin lumps. Neurological: no headaches, no dizziness, no seizures, no tingling, no numbness, no signs and symptoms of stroke and no limb weakness. Psychiatric: no confusion, no memory lapses or loss, no depression and no sleep disturbances. Endocrine: no goiter, no thyroid disorder, no diabetes mellitus, no excessive thirst, no dry skin, no cold intolerance, no heat intolerance and no increased urinary frequency. Hematologic/Lymphatic: is not slow to heal, does not bleed easily, does not bruise easily, no thrombophlebitis, no anemia and no history of blood transfusion. All other systems have been reviewed and are negative for complaint. *Active Problems Advance directive discussed with patient (V65.49) (Z71.89) Anemia in CKD (chronic kidney disease) (285.21) (N18.9,D63.1) Anxiety (300.00) (F41.9) Benign prostatic hyperplasia with urinary obstruction and other lower urinary tract symptoms (600.21) (N40.1,N13.8) Bruit of left carotid artery (785.9) (R09.89) Cholelithiasis (574.20) (K80.20) Chronic cough (786.2) (R05.3) Chronic low back pain (724.2,338.29) (M54.50,G89.29) Chronic pain disorder (338.4) (G89.4) Chronic shortness of breath (786.05) (R06.02) Chronic stable angina (413.9) (I20.8) COPD (chronic obstructive pulmonary disease) (496) (J44.9) CRF (chronic renal failure), stage 3 (moderate) (585.3) (N18.30) Debility (799.3) (R53.81) Depression, major, in remission (296.25) (F32.5) Diabetic neuropathy (250.60,357.2) (E11.40) DJD (degenerative joint disease), cervical (721.0) (M47.812) DM2 (diabetes mellitus, type 2) (250.00) (E11.9) Early satiety (780.94) (R68.81) Encounter for immunization (V03.89) (Z23) Encounter for Medicare annual wellness exam (V70.0) (Z00.00) Encounter for screening for lung cancer (V76.0) (Z12.2) Essential tremor (333.1) (G25.0) Fatigue (780.79) (R53.83) Gait difficulty (781.2) (R26.9) GERD (gastroesophageal reflux disease) (530.81) (K21. (more content not included)... Normal [place] BASIC METABOLIC PANELon - Anion gap [Moles/Vol] 15 mmol/L Normal 10 - 20 [facility] Comment on above: Performed By: #### B MP #### [address] [address] Calcium [Mass/Vol] 9.4 mg/dL Normal 8.6 - 10.3 [facility] Comment on above: Performed By: #### B MP #### [address] [address] Chloride [Moles/Vol] 97 mmol/L Low 98 - 107 [facility] Comment on above: Performed By: #### B MP #### [address] [address] Creatinine [Mass/Vol] 2.08 mg/dL High 0.50 - 1.30 [facility] Comment on above: Performed By: #### B MP #### [address] [address] GFR/1.73 sq M.predicted among non-blacks MDRD (S/P/Bld) [Vol rate/Area] 33 mL/min/{1.73_m2} Abnormal >90 [facility] Comment on above: Result Comment: CALC ULATIONS OF ESTIMATED GFR ARE PERFORMED USING THE 2020 CKD-EPI STUDY REFIT EQUATION WITHOUT THE RACE VARIABLE FOR THE IDMS-TRACEABLE CREATININE METHODS. https://jasn.asnjournals.org/content/early/ASN.2020 470851 Performed By: #### B MP #### [address] [address] Glucose [Mass/Vol] 260 mg/dL High 74 - 99 [facility] Comment on above: Performed By: #### B MP #### [address] [address] HCO3 (Bld) [Moles/Vol] 24 mmol/L Normal 21 - 32 [facility] Comment on above: Performed By: #### B MP #### [address] [address] Potassium [Moles/Vol] 5.1 mmol/L Normal 3.5 - 5.3 [facility] Comment on above: Performed By: #### B MP #### [address] [address] Sodium [Moles/Vol] 131 mmol/L Low 136 - 145 [facility] Comment on above: Performed By: #### B MP #### [address] [address] Urea nitrogen [Mass/Vol] 38 mg/dL High 6 - 23 [facility] Comment on above: Performed By: #### B MP #### [address] [address] ANION GAP Canceled Normal [facility] Comment on above: Order Comment: TEST BASIC METABOLIC PANEL WAS CANCELLED, 11/09/2022 19:03 DUPLICATE ORDER. Performed By: #### B MP #### [address] [address] BICARBONATE Canceled Normal [facility] Comment on above: Order Comment: TEST BASIC METABOLIC PANEL WAS CANCELLED, 11/09/2022 19:03 DUPLICATE ORDER. Performed By: #### B MP #### [address] [address] CALCIUM Canceled Normal [facility] Comment on above: Order Comment: TEST BASIC METABOLIC PANEL WAS CANCELLED, 11/09/2022 19:03 DUPLICATE ORDER. Performed By: #### B MP #### [address] [address] CHLORIDE Canceled Normal [facility] Comment on above: Order Comment: TEST BASIC METABOLIC PANEL WAS CANCELLED, 11/09/2022 19:03 DUPLICATE ORDER. Performed By: #### B MP #### [address] [address] CREATININE Canceled Normal [facility] Comment on above: Order Comment: TEST BASIC METABOLIC PANEL WAS CANCELLED, 11/09/2022 19:03 DUPLICATE ORDER. Performed By: #### B MP #### [address] [address] eGFR FEMALE Canceled Normal [facility] Comment on above: Order Comment: TEST BASIC METABOLIC PANEL WAS CANCELLED, 11/09/2022 19:03 DUPLICATE ORDER. Result Comment: CALC ULATIONS OF ESTIMATED GFR ARE PERFORMED USING THE 2020 CKD-EPI STUDY REFIT EQUATION WITHOUT THE RACE VARIABLE FOR THE IDMS-TRACEABLE CREATININE METHODS. https://jasn.asnjournals.org/content/earlyASN.2020 633416 Performed By: #### B MP #### [address] [address] eGFR MALE Canceled Normal [facility] Comment on above: Order Comment: TEST BASIC METABOLIC PANEL WAS CANCELLED, 11/09/2022 19:03 DUPLICATE ORDER. Result Comment: CALC ULATIONS OF ESTIMATED GFR ARE PERFORMED USING THE 2020 CKD-EPI STUDY REFIT EQUATION WITHOUT THE RACE VARIABLE FOR THE IDMS-TRACEABLE CREATININE METHODS. https://jasn.asnjournals.org/content/earlyASN.2020 471570 Performed By: #### B MP #### [address] [address] GLUCOSE Canceled Normal [facility] Comment on above: Order Comment: TEST BASIC METABOLIC PANEL WAS CANCELLED, 11/09/2022 19:03 DUPLICATE ORDER. Performed By: #### B MP #### [address] [address] POTASSIUM Canceled Normal [facility] Comment on above: Order Comment: TEST BASIC METABOLIC PANEL WAS CANCELLED, 11/09/2022 19:03 DUPLICATE ORDER. Performed By: #### B MP #### [address] [address] SODIUM Canceled Normal [facility] Comment on above: Order Comment: TEST BASIC METABOLIC PANEL WAS CANCELLED, 11/09/2022 19:03 DUPLICATE ORDER. Performed By: #### B MP #### [address] [address] UREA NITROGEN Canceled Normal [facility] Comment on above: Order Comment: TEST BASIC METABOLIC PANEL WAS CANCELLED, 11/09/2022 19:03 DUPLICATE ORDER. Performed By: #### B MP #### [address] [address] C Reactive Protein, Serumon 11-09-2022 CRP [Mass/Vol] 1.93 mg/dL Abnormal [facility] Work Phone: Comment on above: REF VALUE< 1.00 C-REACTIVE PROTEINon 023 C-REACTIVE PROTEIN 1.93 mg/dL Abnormal [facility] Comment on above: Result Comment: REF VALUE < 1.00 Performed By: #### C RP #### [address] [address] C-REACTIVE PROTEIN Canceled Normal [facility] Comment on above: Order Comment: TEST C-REACTIVE PROTEIN WAS CANCELLED, 11/09/2022 19:03 DUPLICATE ORDER. Performed By: #### C RP #### [address] [address] CBC AND DIFFERENTIALon 11-09 % AUTOMATED IMMATURE GRAN 3.6 % High 0.0 - 0.9 [facility] Comment on above: Result Comment: Yaquelin ture Granulocyte Count (IG) includes promyelocytes, myelocytes and metamyelocytes but does not include bands. Percent differential counts (%) should be interpreted in the context of the absolute cell counts (cells/L). Performed By: #### C BCDF #### [address] [address] Basophils (Bld) [#/Vol] 0.12 10*3/uL High 0.00 - 0.[address] [facility] Comment on above: Performed By: #### C BCDF #### [address] [address] Basophils/100 WBC (Bld) 1.2 % Normal 0.0 - 2.0 [facility] Comment on above: Performed By: #### C BCDF #### [address] [address] Eosinophils (Bld) [#/Vol] 0.12 10*3/uL Normal 0.00 - 0.40 [facility] Comment on above: Performed By: #### C BCDF #### [address] [address] Eosinophils/100 WBC (Bld) 1.2 % Normal 0.0 - 6.0 [facility] Comment on above: Performed By: #### C BCDF #### [address] [address] Erythrocyte distribution width (RBC) [Ratio] 11.8 % Normal 11.5 - 14.5 [facility] Comment on above: Performed By: #### C BCDF #### [address] [address] Hematocrit (Bld) [Volume fraction] 33.8 % Low 41.0 - 52.0 [facility] Comment on above: Performed By: #### C BCDF #### [address] [address] Hemoglobin (Bld) [Mass/Vol] 11.6 g/dL Low 13.5 - 17.5 [facility] Comment on above: Performed By: #### C BCDF #### [address] [address] Lymphocytes (Bld) [#/Vol] 1.58 10*3/uL Normal 0.80 - 3.00 [facility] Comment on above: Performed By: #### C BCDF #### [address] [address] Lymphocytes/100 WBC (Bld) 16.0 % Normal 13.0 - 44.0 [facility] Comment on above: Performed By: #### C BCDF #### [address] [address] MCHC (RBC) [Mass/Vol] 34.3 g/dL Normal 32.0 - 36.0 [facility] Comment on above: Performed By: #### C BCDF #### [address] [address] MCV (RBC) [Entitic vol] 106 fL High 80 - 100 [facility] Comment on above: Performed By: #### C BCDF #### [address] [address] Monocytes (Bld) [#/Vol] 0.65 10*3/uL Normal 0.05 - 0.[address] [facility] Comment on above: Performed By: #### C BCDF #### [address] [address] Monocytes/100 WBC (Bld) 6.6 % Normal 2.0 - 10.0 [facility] Comment on above: Performed By: #### C BCDF #### [address] [address] Neutrophils (Bld) [#/Vol] 7.04 10*3/uL High 1.60 - 5.50 [facility] Comment on above: Result Comment: Perc ent differential counts (%) should be interpreted in the context of the absolute cell counts (cells/L). Performed By: #### C BCDF #### [address] [address] Neutrophils/100 WBC (Bld) 71.4 % Normal 40.0 - 80.0 [facility] Comment on above: Performed By: #### C BCDF #### [address] [address] Platelets (Bld) [#/Vol] 311 10*3/uL Normal 150 - 450 [facility] Comment on above: Performed By: #### C BCDF #### [address] [address] RBC 3.20 x10E12/L Low 4.50 - 5.90 [facility] Comment on above: Performed By: #### C BCDF #### [address] [address] WBC (Bld) [#/Vol] 9.9 10*3/uL Normal 4.4 - 11.3 [facility] Comment on above: Performed By: #### C BCDF #### [address] [address] % AUTOMATED IMMATURE GRAN Canceled Normal [facility] Comment on above: Order Comment: TEST CBC AND DIFFERENTIAL WAS CANCELLED, 11/09/2022 19:03 DUPLICATE ORDER. Result Comment: Yaquelin ture Granulocyte Count (IG) includes promyelocytes, myelocytes and metamyelocytes but does not include bands. Percent differential counts (%) should be interpreted in the context of the absolute cell counts (cells/L). Performed By: #### C BCDF #### [address] [address] % BASOPHIL Canceled Normal [facility] Comment on above: Order Comment: TEST CBC AND DIFFERENTIAL WAS CANCELLED, 11/09/2022 19:03 DUPLICATE ORDER. Performed By: #### C BCDF #### [address] [address] % EOSINOPHIL Canceled Normal [facility] Comment on above: Order Comment: TEST CBC AND DIFFERENTIAL WAS CANCELLED, 11/09/2022 19:03 DUPLICATE ORDER. Performed By: #### C BCDF #### [address] [address] % LYMPHOCYTE Canceled Normal [facility] Comment on above: Order Comment: TEST CBC AND DIFFERENTIAL WAS CANCELLED, 11/09/2022 19:03 DUPLICATE ORDER. Performed By: #### C BCDF #### [address] [address] % MONOCYTE Canceled Normal [facility] Comment on above: Order Comment: TEST CBC AND DIFFERENTIAL WAS CANCELLED, 11/09/2022 19:03 DUPLICATE ORDER. Performed By: #### C BCDF #### [address] [address] % NEUTROPHIL Canceled Normal [facility] Comment on above: Order Comment: TEST CBC AND DIFFERENTIAL WAS CANCELLED, 11/09/2022 19:03 DUPLICATE ORDER. Performed By: #### C BCDF #### [address] [address] BASOPHIL Canceled Normal [facility] Comment on above: Order Comment: TEST CBC AND DIFFERENTIAL WAS CANCELLED, 11/09/2022 19:03 DUPLICATE ORDER. Performed By: #### C BCDF #### [address] [address] DIFFERENTIAL Canceled Normal [facility] Comment on above: Order Comment: TEST CBC AND DIFFERENTIAL WAS CANCELLED, 11/09/2022 19:03 DUPLICATE ORDER. Performed By: #### C BCDF #### [place] [id number] EOSINOPHIL Canceled Normal [facility] Comment on above: Order Comment: TEST CBC AND DIFFERENTIAL WAS CANCELLED, 11/09/2022 19:03 DUPLICATE ORDER. Performed By: #### C BCDF #### [place] [id number] HCT Canceled Normal [facility] Comment on above: Order Comment: TEST CBC AND DIFFERENTIAL WAS CANCELLED, 11/09/2022 19:03 DUPLICATE ORDER. Performed By: #### C BCDF #### [place] [address] HGB Canceled Normal [facility] Comment on above: Order Comment: TEST CBC AND DIFFERENTIAL WAS CANCELLED, 11/09/2022 19:03 DUPLICATE ORDER. Performed By: #### C BCDF #### [place] [id number] LYMPHOCYTE Canceled Normal [facility] Comment on above: Order Comment: TEST CBC AND DIFFERENTIAL WAS CANCELLED, 11/09/2022 19:03 DUPLICATE ORDER. Performed By: #### C BCDF #### [place] [id number] MCHC Canceled Normal [facility] Comment on above: Order Comment: TEST CBC AND DIFFERENTIAL WAS CANCELLED, 11/09/2022 19:03 DUPLICATE ORDER. Performed By: #### C BCDF #### [place] [id number] MCV Canceled Normal [facility] Comment on above: Order Comment: TEST CBC AND DIFFERENTIAL WAS CANCELLED, 11/09/2022 19:03 DUPLICATE ORDER. Performed By: #### C BCDF #### [place] [id number] MONOCYTE Canceled Normal [facility] Comment on above: Order Comment: TEST CBC AND DIFFERENTIAL WAS CANCELLED, 11/09/2022 19:03 DUPLICATE ORDER. Performed By: #### C BCDF #### [place] [id number] NEUTROPHIL Canceled Normal [facility] Comment on above: Order Comment: TEST CBC AND DIFFERENTIAL WAS CANCELLED, 11/09/2022 19:03 DUPLICATE ORDER. Result Comment: Perc ent differential counts (%) should be interpreted in the context of the absolute cell counts (cells/L). Performed By: #### C BCDF #### [place] [address] PLT Canceled Normal [facility] Comment on above: Order Comment: TEST CBC AND DIFFERENTIAL WAS CANCELLED, 11/09/2022 19:03 DUPLICATE ORDER. Performed By: #### C BCDF #### [place] [address] RBC Canceled Normal [facility] Comment on above: Order Comment: TEST CBC AND DIFFERENTIAL WAS CANCELLED, 11/09/2022 19:03 DUPLICATE ORDER. Performed By: #### C BCDF #### [place] [address] RDW-CV Canceled Normal [facility] Comment on above: Order Comment: TEST CBC AND DIFFERENTIAL WAS CANCELLED, 11/09/2022 19:03 DUPLICATE ORDER. Performed By: #### C BCDF #### [place] [address] WBC Canceled Normal [facility] Comment on above: Order Comment: TEST CBC AND DIFFERENTIAL WAS CANCELLED, 11/09/2022 19:03 DUPLICATE ORDER. Performed By: #### C BCDF #### [place] [id number] Complete Blood Count + Diffe rentialon 11-09-2022 Basophils/100 WBC (Bld) 1.2 % 0.0 - 2.0 M [facility] Internal Medicine Work Phone: Erythrocyte distribution width (RBC) [Ratio] 11.8 % See Below [facility] Internal Medicine Work Phone: Comment on above: Reference Range: 11. 5 - 14.5 Hematocrit (Bld) [Volume fraction] 33.8 % below low threshold See Below [facility] Work Phone: Comment on above: Reference Range: 41. 0 - 52.0 Hemoglobin (Bld) [Mass/Vol] 11.6 g/dL below low threshold See Below [facility] Work Phone: Comment on above: Reference Range: 13. 5 - 17.5 Lymphocytes/100 WBC (Bld) 16.0 % See Below [facility] Work Phone: Comment on above: Reference Range: 13. 0 - 44.0 MCHC (RBC) [Mass/Vol] 34.3 g/dL See Below [facility] Work Phone: Comment on above: Reference Range: 32. 0 - 36.0 MCV (RBC) [Entitic vol] 106 fL above hi gh threshold 80 - 100 [facility] Work Phone: Monocytes/100 WBC (Bld) 6.6 % 2.0 - 10.0 M [facility] Work Phone: Neutrophils/100 WBC (Bld) 71.4 % See Below [facility] Work Phone: Comment on above: Reference Range: 40. 0 - 80.0 Platelets (Bld) [#/Vol] 311 10*3/uL 150 - 450 [facility] Work Phone: RBC (Bld) [#/Vol] 3.20 {x10E12/L} below low threshold See Below [facility] Work Phone: Comment on above: Reference Range: 4.5 0 - 5.90 WBC (Bld) [#/Vol] 9.9 10*3/uL 4.4 - 11.3 [facility] Work Phone: Complete Blood Count + Differential 0.12 {x10E9/L} See Below [facility] Work Phone: Comment on above: Reference Range: 0.0 0 - 0.10 Reference Range: 0.0 0 - 0.40 Complete Blood Count + Differential 0.65 {x10E9/L} See Below [facility] Work Phone: Comment on above: Reference Range: 0.0 5 - 0.80 Complete Blood Count + Differential 1.58 {x10E9/L} See Below [facility] Work Phone: Comment on above: Reference Range: 0.8 0 - 3.00 Complete Blood Count + Differential 7.04 {x10E9/L} above high threshold See Below [facility] Work Phone: Comment on above: Reference Range: 1.6 0 - 5.50 Percent differential counts (%) should be interpreted in the context of the absolute cell counts (cells/L). Complete Blood Count + Differential 1.2 % 0.0 - 6.0 [facility] Work Phone: Complete Blood Count + Differential 3.6 % above high threshold 0.0 - 0.9 [facility] Work Phone: Comment on above: Immature Granulocyte Count (IG) includes promyelocytes, myelocytes and metamyelocytes but does not include bands. Percent differential counts (%) should be interpreted in the context of the absolute cell counts (cells/L). Cult, Misc + smearon 023 Bacteria identified Cx Nom (Unsp spec) Abnormal [facility] Work Phone: FOOT COMPLETE, MIN 3 VIEWSon 11-09-2022 FOOT COMPLETE, MIN 3 VIEWS Patient Name: STEVO ELIZALDE STUDY: FOOT; COMPLETE, MIN 3 VIEWS; Right; 11/09/2022 4:09 pm INDICATION: right 2nd toe infection & heel infection, r/o free air . COMPARISON: None. ACCESSION NUMBER(S): [id number] ORDERING CLINICIAN: CHRISTOPHER GALINDO FINDINGS: Minimal superficial curvilinear lucency lateral to the proximal 5th metatarsal shaft AP view which is indeterminate. Attention to this region recommended on clinical assessment. No definite gas overlying the soft tissues is detected. No radiopaque foreign body. No fracture, or bony erosive changes. No suspicious osseous lesions. IMPRESSION: Minimal asymmetric lucency over the soft tissue adjacent to the lateral aspect of the 5th metatarsal which is indeterminate. Attention to this region recommended on clinical assessment. Otherwise no definite gas. No bony erosive changes. Electronically signed by: FRANSISCA POWELL MD Normal [facility] Laboratory - Chemistry and C hemistry - challengeon 11-09-2022 Anion gap [Moles/Vol] 15 mmol/L 10 - 20 [facility] Internal Medicine Work Phone: Calcium [Mass/Vol] 9.4 mg/dL 8.6 - 10.3 [facility] Internal Medicine Work Phone: Chloride [Moles/Vol] 97 mmol/L below low threshold 98 - 107 [facility] Internal Medicine Work Phone: CO2 [Moles/Vol] 24 mmol/L 21 - 32 [facility] Internal Medicine Work Phone: Creatinine [Mass/Vol] 2.08 mg/dL above high threshold See Below [facility] Work Phone: Comment on above: Reference Range: 0.5 0 - 1.30 Glucose [Mass/Vol] 260 mg/dL above high threshold 74 - 99 [facility] Internal Medicine Work Phone: Potassium [Moles/Vol] 5.1 mmol/L 3.5 - 5.3 [facility] Work Phone: [phone] Sodium [Moles/Vol] 131 mmol/L below low threshold 136 - 145 [facility] Internal [facility] Work Phone: Urea nitrogen [Mass/Vol] 38 mg/dL above high threshold 6 - 23 [facility] Medicine Work Phone: MISCELLANEOUS CULT./SM.BACT. on 11-09-2022 MISCELLANEOUS CULT./SM.BACT. GAS Called- RB to FLYNN WILLS MA, 11/10/2022 16:23 PATIENT: STEVO ELIZALDE LOCATION[place] [facility] [place]ILL#: [id number] : 48 AGE: SEX: M ORDERED BY: CHRISTOPHER GALINDO SOURCE: WOUND/ABSCESS COLLECTED: 11/09/22 15:44 ANTIBIOTICS AT RISSA.: RECEIVED : 11/10/22 00:57 SITE: RT SECOND TOE R E S U L T S GRAM STAIN FINAL 11/10/22 13:16 1+ GRANULOCYTES. 3+ GRAM (+) COCCI MISCELLANEOUS CULT./SM.BACT. FINAL 11/12/22 12:46 ISOLATE1 : Group A streptococcus 4+ Normal [facility] Comment on above: Performed By: #### M [facility] #### [facility] [address] [place] [address] No Panel Informationon 11-09 33 {mL/min/1.73m2} Abnormal >90 [facility] Internal Medicine Work Phone: Comment on above: CALCULATIONS OF TELMA MATED GFR ARE PERFORMED USING THE 2020 CKD-EPI STUDY REFIT EQUATION WITHOUT THE RACE VARIABLE FOR THE IDMS-TRACEABLE CREATININE METHODS.https://jasn.asnjournals.org/content/early/ ASN.3566126101 Provider Note - ED v3on 10-30 Provider Note - ED v3 Provider Note: Chart Review HISTORY OF PRESENTING ILLNESS STEVO is a 72 year old Male and was seen by me at 09-Nov-2022 14:50 for a chief complaint of wound check. The historian is the patientsignificant other. Additional Details: Patient indicates he fell 2 weeks ago in his home injuring his right leg he suffered a right toe and anterior leg abrasion now its continued to fester resulting in discharge and ulceration of the dorsal aspect of the second right toe as well as the anterior distal tibia and the posterior aspect of the lower leg involving the Achilles region. He has some pain, some erythema, granddaughter is here with him states that it is a little bit darker in redness as compared to evaluation on . Patient is an insulin-dependent diabetic, he denies any significant pain with ambulation, he has not been taking care of the wound at home given some restrictions with functional care. Triage Information: Most recent Vital Sign Value Date PAST MEDICAL HISTORY ALLERGIES/INTOLERANCES: Allergy Allergen: varenicline Type: Drug Reaction: Swelling/Edema Allergen: levofloxacin Type: Drug Reaction: Other HEALTH HISTORY: Medical History Name:CVA (cerebral vascular accident) Code:I63.9 Name:Diabetes mellitus Code:E11.9 Name:COPD (chronic obstructive pulmonary disease) Code:J44.9 Name:Chronic renal failure Code:N18.9 Name:Anxiety and depression Code:F41.9 Name:Hypertension Code:I10 Name:Colon polyps Code:K63.5 OUTPATIENT MEDICATIONS: Home Medications Review Status for Reconciliation: Complete Med Status: Patient Currently Takes Medications Drug Name: SPIRIVA 18 MCG CP-HANDIHALER Instructions: INHALE CONTENTS OF 1 CAPSULE WITH DEVICE DAILY Drug Name: ALBUTEROL HFA 90 MCG INHALER Instructions: 2 puff(s) inhaled every 4 hours, As Needed Drug Name: ALBUTEROL SUL 2.5 MG/3 ML SOLN Instructions: 3 milliliter(s) inhaled every 4 hours, As Needed Drug Name: AMLODIPINE BESYLATE 2.5 MG TAB Instructions: 1 tab(s) orally once a day Drug Name: BUSPIRONE HCL 10 MG TABLET Instructions: 1 tab(s) orally 3 times a day, As Needed Drug Name: CLOPIDOGREL 75 MG TABLET Instructions: 1 tab(s) orally once a day Drug Name: FAMOTIDINE 20 MG TABLET Instructions: 1 tab(s) orally 2 times a day Drug Name: FOLIC ACID 1 MG TABLET Instructions: 1 tab(s) orally once a day Drug Name: ISOSORBIDE MONONIT ER 30 MG TB Instructions: 1 tab(s) orally once a day (in the morning) Drug Name: LISINOPRIL 40 MG TABLET Instructions: 1 tab(s) orally once a day Drug Name: LOVASTATIN 10 MG TABLET Instructions: 1 tab(s) orally once a day Drug Name: METFORMIN HCL 500 MG TABLET Instructions: 1 tab(s) orally 2 times a day Drug Name: nitroglycerin 0.4 mg sublingual tablet Instructions: 1 tab(s) sublingual every 5 minutes, As Needed for chest pain Drug Name: OMEPRAZOLE DR 20 MG CAPSULE Instructions: 1 cap(s) orally once a day Drug Name: PAROXETINE HCL 20 MG TABLET Instructions: 1 tab(s) orally once a day Drug Name: PRIMIDONE 50 MG TABLET Instructions: 1 tab(s) orally once a day (at bedtime) Drug Name: PROPRANOLOL ER 80 MG CAPSULE Instructions: 1 cap(s) orally once a day Drug Name: SPIRONOLACTONE 25 MG TABLET Instructions: 1 tab(s) orally once a day Drug Name: WIXELA 500-50 INHUB Instructions: 1 puff(s) inhaled 2 times a day Drug Name: Lantus 100 units/mL subcutaneous solution Instructions: 6 unit(s) subcutaneous once a day Drug Name: NovoLIN R 100 units/mL injectable solution Instructions: sliding scale Drug Name: clindamycin 300 mg oral capsule Instructions: 1 cap(s) orally every 6 hours SIGNIFICANT EVENTS: Immunizations Description:Tdap REVIEW OF SYSTEMS CONSTITUTIONAL: Negative for: chills, fever and malaise ENMTNose: Negative for: congestion and discharge Throat/Neck: Negative for: throat pain RESPIRATORY: Negative for: cough GASTROINTESTINAL: Negative for: diarrhea and vomiting; GENITOURINARY: Negative for: dysuria; INTEGUMENTARY: POSITIVE for: lesions (right lower leg and toe ulcers); ENDOCRINE: POSITIVE for: diabetes PHYSICAL EXAM CONSTITUTIONAL: Well appearing, well nourished, awake, alert, oriented to person, place, time/situation and in no apparent distress. HENMT: Airway patent, ears with clear tympanic membranes bilaterally. Nasal mucosa clear. Mouth with normal mucosa. Throat has no vesicles, no oropharyngeal exudates and uvula is midline. Face with no lymph node enlargement. EYES: Clear bilaterally, pupils equal, round and reactive to light. CARDIOVASCULAR: Normal rate, regular rhythm. Heart sounds S1, S2. No murmurs, rubs or gallops. PMI non-displaced. NEUROLOGICAL: Alert and oriented, no focal deficits, no motor or sensory deficits. SKIN: Skin Color: normal for race Skin Temperature: warm Capillary Refill: less than 2 seconds Signs of Infection: DRAI (more content not included)... Normal [facility] Radiologyon 11-09-2022 XR Foot 3 Views Normal [facility] Work Phone: SEDIMENTATION RATE, ERYTHROC YTEon 11-09-2022 SEDIMENTATION RATE, ERYTHROCYTE 46 mm/h High 0 - 20 [facility] Comment on above: Performed By: #### E SRWS #### [facility] [address] [place] [address] SEDIMENTATION RATE, ERYTHROCYTE Canceled Normal [facility] Comment on above: Order Comment: TEST SEDIMENTATION RATE, ERYTHROCYTE WAS CANCELLED, 11/09/2022 19:03 DUPLICATE ORDER. Performed By: #### E SRWS #### [facility] [address] [place] [address] Sedimentation Rate, Erythroc yteon 11-09-2022 ESR (Bld) [Velocity] 46 mm/h above high threshold 0 - 20 [facility] Internal Medicine Work Phone: Office Visit (Internal Medic ine)on 09-20-2022 Follow-up visit Diagnoses/Problems Assessed Intermittent epigastric abdominal pain (789.06) (R10.13) GERD (gastroesophageal reflux disease) (530.81) (K21.9) Encounter for immunization (V03.89) (Z23) DM2 (diabetes mellitus, type 2) (250.00) (E11.9) CRF (chronic renal failure), stage 3 (moderate) (585.3) (N18.30) Hypertension associated with type 2 diabetes mellitus (250.80,401.9) (E11.59,I15.2) Chest pain (786.50) (R07.9) Orders Chronic cough, COPD (chronic obstructive pulmonary disease) Start: Nebulizer Mask Adult; USE DIRECTED Rx By: Phyllis Mae; Dispense: 0 Days ; #:1 Each; Refill: 0; For: Chronic cough, COPD (chronic obstructive pulmonary disease); BANDAR = N; Sent To: [facility]; Last Updated By: LISNR; 09/20/2022 2:23:32 PM Start: Nebulizer/Tubing/Mouthpi araceli KIT; USE DIRECTED Rx By: Phyllis Mae; Dispense: 0 Days ; #:1 Kit; Refill: 3; For: Chronic cough, COPD (chronic obstructive pulmonary disease); BANDAR = N; Sent To: [facility]; Last Updated By: LISNR; 09/20/2022 2:23:33 PM DM2 (diabetes mellitus, type 2) Comprehensive Metabolic Panel; Status:Active; Requested for:21Dec2022; Perform:Lab Services - Lab To Draw (Blood Test); Due:21Mar2023;Ordered; For:DM2 (diabetes mellitus, type 2); Ordered By:Phyllis Mae; Hemoglobin A1C; Status:Active; Requested for:21Dec2022; Perform:Lab Services - Lab To Draw (Blood Test); Due:[id number];Ordered; For:DM2 (diabetes mellitus, type 2); Ordered By:Phyllis Mae; Encounter for immunization Administered: Fluzone High-Dose Quadrivalent 0.7 ML Intramuscular Suspension Prefilled Syringe For: Encounter for immunization; Ordered By:Phyllis Mae; Effective Date:20Sep2022; Administered by: Daiana Cruz LAB HEAD: 09/20/2022 1:43:00 PM; Last Updated By: Daiana Cruz; 09/20/2022 1:43:45 PM Essential tremor Renew: Primidone 50 MG Oral Tablet; TAKE 1 TABLET AT BEDTIME Rx By: Phyllis Mae; Dispense: 30 Days ; #:30 Tablet; Refill: 11; For: Essential tremor; BANDAR = N; Verified Transmission to [id number]; Last Updated By: Andrew Angel Alerts; 09/20/2022 1:28:13 PM GERD (gastroesophageal reflux disease), Intermittent epigastric abdominal pain Start: Sucralfate 1 GM Oral Tablet; TAKE 1 TABLET 4 TIMES DAILY, BEFORE MEALS AND AT BEDTIME Rx By: Phyllis Mae; Dispense: 30 Days ; #:120 Tablet; Refill: 0; For: GERD (gastroesophageal reflux disease), Intermittent epigastric abdominal pain; BANDAR = N; Verified Transmission to [id number]; Last Updated By: Andrew Angel Alerts; 09/20/2022 1:28:13 PM Mixed hyperlipidemia Renew: Lovastatin 10 MG Oral Tablet; TAKE 1 TABLET DAILY Rx By: Phyllis Mae; Dispense: 90 Days ; #:90 Tablet; Refill: 3; For: Mixed hyperlipidemia; BANDAR = N; Verified Transmission to [id number]; Last Updated By: Platfora Angel Alerts; 09/20/2022 1:28:09 PM Patient Discussion/Summary 1/5 MON FOR ABDOMINAL PAIN. 3 MON FOR LABS. 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 CMP, HGBA1C Provider Impressions OFFERED TO DO EKG, CXR , PT REFUSED . PT WANTS TO WAIT FOR [facility] VISIT NEXT WEEK. ADVISED TO GO TO ER IF CHEST PAIN GETS WORSE. ADVISED TO Avoid highly acid foods such as tomatoes, tomato juice, and citrus juices. Avoid eating for at least 3 hours before going to bed. Avoid lying on your left side. Avoid clothes that are tight around the waist and chest. Eat at regular times. Do not skip meals. Avoid overeating. You may want to eat more often and have smaller amounts at each meal instead of having two or three large meals. Cut down on or quit smoking. Avoid fatty foods. Avoid caffeinated beverages and foods, such as coffee, mumtaz, and chocolate. Tilt the head of your bed up about four inches. ADVISED TO MONITOR THE BP AND TO HAVE LOW SALT DIET, FLU SHOT IS GIVE TODAY AT [facility] . 1 1 Amended By: Phyllis Mae; Sep 20 2022 2:36 PM ESTChief Complaint PT HERE TODAY FOR 3 MO F/U. PT C/O CHEST PAIN. PT STATES THEY HAVE BEEN ONGOING FOR A FEW MONTHS. PT STATES HIS LEGS FEEL WEAK FOR MONTHS History of Present IllnessCHEST PAIN B/L WITH RADIATIONS TO L ARM WITH SEVERITY OF 5/10 LASTING AROUND 5 MINUTES ON AND OFF X SEVERAL WEEKS. NOTHING MAKES THE PAIN BETTER OR WORSE. HAS [facility] IN 1 WEEK WITH [facility] AND WANT TO WAIT UNTIL THAT VISIT FOR CARDIAC EVALUATIONS. HAS EPIGASTRIC ABDOMINAL PAIN 4-5/10 ON AND OFF X SEVERAL WEEKS. NEEDS NEBULIZER MASK AND TUBE. NEEDS FLU SHOT TODAY. Review of Systems Constitutional: not feeling poorly, no fever, no recent weight gain and no recent weight loss. Eyes: no blurred vision and no diplopia. ENT: no hearing loss, no tinnitus, no earache, no sore throat, no hoarseness and no swollen glands in the neck. Cardiovascular: no chest pain, no tightness or heavy pressure, no shortness of breath, no palpitations, no lower extremity edema and as noted in HPI. Respiratory: no cough, not coughing up sputum and no wheezing (more content not included)... Normal [facility] PHQ-2 VITALSon 09-20-2022 Adult depression screening assessment No [facility] Internal Medicine Work Phone: Tobacco Screening.on 022 Fall risk assessment a) No falls within the last year [facility] Internal Medicine Work Phone: Tobacco use status [facility] b) No [facility] Work Phone: Therapy Communicationon 04-29 Therapy Communication Message STEVO ELIZALDE was (D/C)- last seen: 05/04/22. Pt self-discharged from skilled Physical Therapy at this time. Pt attended 4 of his scheduled therapy appointments. He called and left a message for this PT that he was doing much better and didn't feel he needed to continue. Pt was not able to be fully re-assessed due to self-discharging and not attending final re-evaluation appointment. Refer back in future if necessary. Signatures Electronically signed by : Lorena Evangelista, PT; May 10 2022 2:25PM EST (Author) [facility] PT Progress Noteon 2 PT Progress Note No report was sent [facility] Therapy Communicationon 04-29 Therapy Communication Message STEVO ELIZALDE no showed today 05/09/22. Patient did not show for appointment this date, called and spoke with she stated she was not aware of appointment due to it was not on her list, confirmed next two appointments. Signatures Electronically signed by : Quin Li PTA; May 09 2022 12:23PM EST (Author) [facility] PT Progress Noteon 2 PT Progress Note No report was sent [facility] Therapy Communicationon 07 Therapy Communication Message STEVO ELIZALDE canceled today 05/06/22. Patient called to cancel no reason provided per front maker lockstitch. Signatures Electronically signed by : Quin Li PTA; May 06 2022 12:08PM EST (Author) [facility] PT Progress Noteon 2 PT Progress Note Therapy Diagnosis Assessed Muscle weakness of lower extremity (728.87) (M62.81) DJD (degenerative joint disease), cervical (721.0) (M47.812) H/O: CVA (cerebrovascular accident) (V12.54) (Z86.73) Gait difficulty (781.2) (R26.9) Impaired transfers (781.99) (Z74.09) Plan Goals: Goals set and discussed today. Pt will demo and report compliance with HEP in order to augment POC goals and progression toward independence with symptom management for better outcomes once D/C from POC. , by week 2 Activity Limitation: Pt will demo improved standing tolerance to >/= 20 min in order to improve ease with ADL?s and IADL?s. , by week 6 Balance: Pt will demo improved functional balance with TUG score decreasing by >/= 2 sec for improved stability with transfers and ambulation., by week 6 Transfers: Pt will demo improved ease with sit<>stand with min UE A and improved eccentric control for decreased fall risk and improved ease with transfers and demo improved STS test with time decreased by , by week 6 LEFS, Pt will report subjective improvement with score on LEFS improved by >/= 5 points for return to PLOF, improved QOL, and improved ease with ADL?s AND IADL?s. , by week 6 Planned interventions include: education/instruction, gait training, home program, manual therapy, neuromuscular re-education, therapeutic exercises and IASTM. Frequency and duration: for 9 visits . Requesting 8 visits: plan for 2xweek x 3 weeks then decrease to 1xweek x 2 weeks if approved (total of 9 with eval). Potential to achieve rehab goals is good Progress core and LE strengthening and add standing balance when tolerates. Progress with POC, as tolerated. Assessment Patient identified by name and date of . Per patient request treatment time reduced this date due to conflict in schedule. Patient was able to progress with standing exercises this date with addition of reps and step ups. He required seated rest breaks due to LE fatigue. Adult Risk Screening There are no spiritual/cultural practices/values/needs that are important to know Initial Fall Risk Screening: STEVO has fallen in the last 6 months. He has fallen due to got up at night . His fall did not result in injury. STEVO does not have a fear of falling. He needs assistance with . Needs assistance walking in his home. He needs assistance in an unfamiliar setting. The patient is using an assistive device. Fall Risk Screening: Patient is identified as a fall risk. Care Plan: Moderate Risk: Low risk interventions plus: do not leave patient on exam table unattended, supervised activity, educate patient/family on falls prevention, review safety initiatives with patient/family, family at bedside as allowed, yellow falls risk band, focus rounding attention, locate patient in area of high visibility, wheelchair, bed, or personal alarm, bedside commode, elevated toilet seat and pharmacy consult for medication concerns. Please identify location of pain: in R hip. Pain Quality: sharp. Domestic Violence Screen: Does not feel threatened or abused physically, emotionally or sexually. Do you feel UNSAFE? The patient feels safe in the home. Depression/Suicide Screening: During the past 2 weeks, the patient has not felt down, depressed or hopeless. During the past 2 weeks, the patient has not felt little interest or pleasure in doing things. Insurance Insurance reviewed Visit number: 4 Approved number of visits: 8 additional Authorization date range: 04/06/22-05/13/22 Authorization not required after evaluation POC: 4/ [employer]/Medicaid-EVAL ONLY Supervising PT: Lorena Evangelista PT, DPT, Luh DN PT Dx: M47.812; Z86.73; M62.81; Onset Date: 2020 Subjective Patient reports:. Patient reported he tripped on a bathroom rug and feel fwd but was able to catch himself and not fall to the floor. Patient reported he and his had a stomach bug the week prior. Patient reported muscle soreness without pain after treatment. Home program performing as directed: Yes. Precautions: Fall Risk: moderate history of stroke;. Treatment Time in clinic started at 01:57 Time in clinic ended at 02:32 Total time in clinic is 35 minutes. Total timed code time is 29 minutes. Therapeutic exercise (75101): timed minutes 29, units 2 . NuStep Lv 1 x4' Standing hip abd with TrA x10 (P) Standing hip ext with TrA 2x10 (P) Standing heel raises 2x10 (P) Standing marching with TrA x10 (P) Mini squats x10 (N) Step ups 4? fwd (green step) x10 ea LE Lead (N) Step ups 4? lateral x10 (green step) (N) Seated ROW with TrA green band 2 x 10 Seated UE ext with TrA green band 2 x 10 Not this date; Seated Glute set 10x5" holds Seated Tra set 10x5" holds Seated TrA with BLE Hip ABD green 2 x 10 3"(P) Seated TrA with Alt Marches (Held band this date) 2 x 10 3" holds Seated TrA with hip add and LAQ 2 x 10 3" holds Seated TrA with HSC Green band 2 x 10 . Neuromuscular Re-education (more content not included)... [facility] Progress Noteon 2 PT Progress Note No report was sent [facility] Therapy Communicationon 07-0 Therapy Communication Message STEVO ELIZALDE canceled today 04/29/22. Patient called to cancel. Signatures Electronically signed by : Quin Li PTA; Apr 29 2022 2:35PM EST (Author) [facility] Therapy Communication Message STEVO ELIZALDE canceled today 04/29/22. Patient called to cancel. Signatures Electronically signed by : Quin Li PTA; Apr 29 2022 2:34PM EST (Author) [facility] Progress Noteon 2 PT Progress Note No report was sent [facility] Therapy Communicationon 06- Therapy Communication Message STEVO ELIZALDE canceled today 04/25/22. Per front maker lockstitch patient called to cancel due to broke her tooth and needs to go to the dentist. Signatures Electronically signed by : Quin Li PTA; Apr 25 2022 9:09AM EST (Author) [facility] Progress Noteon 2 PT Progress Note Therapy Diagnosis Assessed Muscle weakness of lower extremity (728.87) (M62.81) DJD (degenerative joint disease), cervical (721.0) (M47.812) H/O: CVA (cerebrovascular accident) (V12.54) (Z86.73) Gait difficulty (781.2) (R26.9) Impaired transfers (781.99) (Z74.09) Plan Goals: Goals set and discussed today. Pt will demo and report compliance with HEP in order to augment POC goals and progression toward independence with symptom management for better outcomes once D/C from POC. , by week 2 Activity Limitation: Pt will demo improved standing tolerance to >/= 20 min in order to improve ease with ADL?s and IADL?s. , by week 6 Balance: Pt will demo improved functional balance with TUG score decreasing by >/= 2 sec for improved stability with transfers and ambulation., by week 6 Transfers: Pt will demo improved ease with sit<>stand with min UE A and improved eccentric control for decreased fall risk and improved ease with transfers and demo improved STS test with time decreased by , by week 6 LEFS, Pt will report subjective improvement with score on LEFS improved by >/= 5 points for return to PLOF, improved QOL, and improved ease with ADL?s AND IADL?s. , by week 6 Planned interventions include: education/instruction, gait training, home program, manual therapy, neuromuscular re-education, therapeutic exercises and IASTM. Frequency and duration: for 9 visits . Requesting 8 visits: plan for 2xweek x 3 weeks then decrease to 1xweek x 2 weeks if approved (total of 9 with eval). Potential to achieve rehab goals is good Progress core and LE strengthening and add standing balance when tolerates. Progress with POC, as tolerated. Assessment Patient identified by name and date of . Treatment time reduced secondary to patients 's request due to conflict with treatment time. Held band with marching due to increased hip flexion seated. Patient demonstrated quick fatigue but was able to progress with standing exercises this date. Reviewed with patient to decrease with muscle contraction with hip abd/add exercises to decrease with reported increase in Sx. Adult Risk Screening There are no spiritual/cultural practices/values/needs that are important to know Initial Fall Risk Screening: STEVO has fallen in the last 6 months. He has fallen due to got up at night . His fall did not result in injury. STEVO does not have a fear of falling. He needs assistance with . Needs assistance walking in his home. He needs assistance in an unfamiliar setting. The patient is using an assistive device. Fall Risk Screening: Patient is identified as a fall risk. Care Plan: Moderate Risk: Low risk interventions plus: do not leave patient on exam table unattended, supervised activity, educate patient/family on falls prevention, review safety initiatives with patient/family, family at bedside as allowed, yellow falls risk band, focus rounding attention, locate patient in area of high visibility, wheelchair, bed, or personal alarm, bedside commode, elevated toilet seat and pharmacy consult for medication concerns. Pain Scale: On a scale of 0 to 10, the patient rates the pain at 7. Please identify location of pain: in R hip. Pain Quality: sharp. Domestic Violence Screen: Does not feel threatened or abused physically, emotionally or sexually. Do you feel UNSAFE? The patient feels safe in the home. Depression/Suicide Screening: During the past 2 weeks, the patient has not felt down, depressed or hopeless. During the past 2 weeks, the patient has not felt little interest or pleasure in doing things. Insurance Insurance reviewed Visit number: 3 Approved number of visits: 8 additional Authorization date range: 04/06/22-05/13/22 Authorization not required after evaluation POC: 3/ [employer]/Medicaid-EVAL ONLY Supervising PT: Lorena Evangelista PT, DPT, Cert DN PT Dx: M47.812; Z86.73; M62.81; Onset Date: 2020 Subjective Patient reports:. Patient reported he was preforming his HEP two days prior and started experiencing increased R hip pain that has not ceased since. Patient reported increased pain after treatment. Home program performing as directed: Yes. Precautions: Fall Risk: moderate history of stroke;. Treatment Time in clinic started at 01:15 Time in clinic ended at 01:49 Total time in clinic is 34 minutes. Total timed code time is 30 minutes. Therapeutic exercise (24616): timed minutes 30, units 2 . NuStep Lv 1 x6' Seated Glute set 10x5" holds Seated Tra set 10x5" holds Seated TrA with BLE Hip ABD green 2 x 10 3"(P) Seated TrA with Alt Marches (Held band this date) 2 x 10 3" holds Seated TrA with hip add and LAQ 2 x 10 3" holds Seated TrA with HSC Green band 2 x 10 Seated ROW with TrA green band 2 x 10 Seated UE ext with TrA green band 2 x 10 Standing hip abd with TrA x10 (N) Standing hip ext with TrA x10 (N) Standing heel raises x10 (N) Standing marching with TrA x10 (N) Mini squats (more content not included)... [facility] Progress Noteon 2 PT Progress Note Therapy Diagnosis Assessed Muscle weakness of lower extremity (728.87) (M62.81) DJD (degenerative joint disease), cervical (721.0) (M47.812) H/O: CVA (cerebrovascular accident) (V12.54) (Z86.73) Gait difficulty (781.2) (R26.9) Impaired transfers (781.99) (Z74.09) Plan Goals: Goals set and discussed today. Pt will demo and report compliance with HEP in order to augment POC goals and progression toward independence with symptom management for better outcomes once D/C from POC. , by week 2 Activity Limitation: Pt will demo improved standing tolerance to >/= 20 min in order to improve ease with ADL?s and IADL?s. , by week 6 Balance: Pt will demo improved functional balance with TUG score decreasing by >/= 2 sec for improved stability with transfers and ambulation., by week 6 Transfers: Pt will demo improved ease with sit<>stand with min UE A and improved eccentric control for decreased fall risk and improved ease with transfers and demo improved STS test with time decreased by , by week 6 LEFS, Pt will report subjective improvement with score on LEFS improved by >/= 5 points for return to PLOF, improved QOL, and improved ease with ADL?s AND IADL?s. , by week 6 Planned interventions include: education/instruction, gait training, home program, manual therapy, neuromuscular re-education, therapeutic exercises and IASTM. Frequency and duration: for 9 visits . Requesting 8 visits: plan for 2xweek x 3 weeks then decrease to 1xweek x 2 weeks if approved (total of 9 with eval). Potential to achieve rehab goals is good Progress core and LE strengthening and add standing balance when tolerates. Progress with POC, as tolerated. Assessment Patient identified by name and date of . Patient required rest breaks between sets and exercises due to fatigue. He ambulated into clinic with use of S/C with slow nilda. He verbalized good understanding of HEP with review and additional handouts. Adult Risk Screening There are no spiritual/cultural practices/values/needs that are important to know Initial Fall Risk Screening: STEVO has fallen in the last 6 months. He has fallen due to got up at night . His fall did not result in injury. STEVO does not have a fear of falling. He needs assistance with . Needs assistance walking in his home. He needs assistance in an unfamiliar setting. The patient is using an assistive device. Fall Risk Screening: Patient is identified as a fall risk. Care Plan: Moderate Risk: Low risk interventions plus: do not leave patient on exam table unattended, supervised activity, educate patient/family on falls prevention, review safety initiatives with patient/family, family at bedside as allowed, yellow falls risk band, focus rounding attention, locate patient in area of high visibility, wheelchair, bed, or personal alarm, bedside commode, elevated toilet seat and pharmacy consult for medication concerns. Pain Scale: On a scale of 0 to 10, the patient rates the pain at 6. Please identify location of pain: pain not primary c/o. Domestic Violence Screen: Does not feel threatened or abused physically, emotionally or sexually. Do you feel UNSAFE? The patient feels safe in the home. Depression/Suicide Screening: During the past 2 weeks, the patient has not felt down, depressed or hopeless. During the past 2 weeks, the patient has not felt little interest or pleasure in doing things. Insurance Insurance reviewed Visit number: 2 Approved number of visits: 8 additional Authorization date range: 04/06/22-05/13/22 Authorization not required after evaluation POC: 2/ [employer]/Medicaid-EVAL ONLY Supervising PT: Lorena Evangelista PT, DPT, Cert DN PT Dx: M47.812; Z86.73; M62.81; Onset Date: 2020 Subjective Patient reports:. He reported 7/10 pain after treatment. Home program performing as directed: Yes. Precautions: Fall Risk: moderate history of stroke;. Treatment Time in clinic started at 11:30 Time in clinic ended at 12:18 Total time in clinic is 48 minutes. Total timed code time is 42 minutes. Therapeutic exercise (72088): timed minutes 42, units 3 . NuStep Lv 1 x6' Seated Glute set 10x5" holds Seated Tra set 10x5" holds Seated TrA with BLE Hip ABD Green 2 x 10 3"(P) Seated TrA with Alt Marches Green 2 x 10 3" holds Seated TrA with hip add and LAQ 2 x 10 3" holds Seated TrA with HSC Green band 2 x 10 (N) Seated ROW with TrA green band 2 x 10 (N) Seated UE ext with TrA green band 2 x 10 (N) . Provided today:. 04/18/22 [id number] HEP handout provided and reviewed patient demonstrated good understanding. 'Scores and Scales' Signatures Electronically signed by : Quin Li PTA; Apr 18 2022 12:31PM EST (Author) Electronically signed by : Lorena Evangelista, PT; Apr 18 2022 1:57PM EST [facility] Initial Evaluationon - PT Initial Evaluation Therapy Diagnosis Assessed Muscle weakness of lower extremity (728.87) (M62.81) DJD (degenerative joint disease), cervical (721.0) (M47.812) H/O: CVA (cerebrovascular accident) (V12.54) (Z86.73) Gait difficulty (781.2) (R26.9) Impaired transfers (781.99) (Z74.09) Plan of Care Goals: Goals set and discussed today. Pt will demo and report compliance with HEP in order to augment POC goals and progression toward independence with symptom management for better outcomes once D/C from POC. , by week 2 Activity Limitation: Pt will demo improved standing tolerance to >/= 20 min in order to improve ease with ADL?s and IADL?s. , by week 6 Balance: Pt will demo improved functional balance with TUG score decreasing by >/= 2 sec for improved stability with transfers and ambulation., by week 6 Transfers: Pt will demo improved ease with sit<>stand with min UE A and improved eccentric control for decreased fall risk and improved ease with transfers and demo improved STS test with time decreased by , by week 6 LEFS, Pt will report subjective improvement with score on LEFS improved by >/= 5 points for return to PLOF, improved QOL, and improved ease with ADL?s AND IADL?s. , by week 6 Planned interventions include: education/instruction, gait training, home program, manual therapy, neuromuscular re-education, therapeutic exercises and IASTM. Frequency and duration: for 9 visits . Requesting 8 visits: plan for 2xweek x 3 weeks then decrease to 1xweek x 2 weeks if approved (total of 9 with eval). Potential to achieve rehab goals is good Plan of care was developed with input and agreement by the patient and spouse. Assessment Mr. ELIZALDE presents with signs and symptoms consistent with Generalized weakness, primarily in BLE and proximally in core musculature, as well as gait difficulty and balance impairments causing difficulty with functional transfers. He demonstrates impairments/limitations in functional activities as well as household and community distances with history of falls. Pt demonstrated good MMT of distal musculature in BLE's but was weak in more proximal core musculature as well as ankles with decreased ankle DF with gait noted. Pt wanted to focus on referral for strength/balance and not look at cervical spine this date but may add at future date so still added to POC per referral. Pt and pt's noted good understanding of all edu and pt tolerated/performed HEP well. Given green theraband due to pt noting orange was slightly too easy this date. They would benefit from skilled Physical Therapy with combination of manual therapy techniques to decrease myofascial and joint restrictions, as well as progression of exercises for ROM, flexibility, strength, core stabilization, and glute retraining, and body mechanics education throughout POC to progress towards independence with ADL?s/IADL?s and return to PLOF. Clinical Presentation: Stable and/or uncomplicated characteristics. Level of Complexity: low Problem List: activity limitations, ADLs/IADLs/self care skills, balance, coordination, decreased functional level, fall risk, flexibility, gait/locomotion, motor function/control/tone, pain, participation restrictions, posture, range of motion/joint mobility, strength and transfers. Reason For Visit Initial Evaluation . BLE weakness and history of CVA. Adult Risk Screening There are no spiritual/cultural practices/values/needs that are important to know Initial Fall Risk Screening: STEVO has fallen in the last 6 months. He has fallen due to got up at night . His fall did not result in injury. STEVO has a fear of falling. He needs assistance with . Needs assistance walking in his home. He needs assistance in an unfamiliar setting. The patient is using an assistive device. Fall Risk Screening: Patient is identified as a fall risk. Care Plan: Moderate Risk: Low risk interventions plus: do not leave patient on exam table unattended, supervised activity, educate patient/family on falls prevention, review safety initiatives with patient/family, family at bedside as allowed, yellow falls risk band, focus rounding attention, locate patient in area of high visibility, wheelchair, bed, or personal alarm, bedside commode, elevated toilet seat and pharmacy consult for medication concerns. Please identify location of pain: pain not primary c/o. Domestic Violence Screen: Does not feel threatened or abused physically, emotionally or sexually. Do you feel UNSAFE? The patient feels safe in the home. Depression/Suicide Screening: During the past 2 weeks, the patient has not felt down, depressed or hopeless. During the past 2 weeks, the patient has not felt little interest or pleasure in doing things. Insurance Insurance reviewed Visit number: 1 Authorization not required after evaluation POC: 1/ [employer]/Medicaid-EVAL ONLY Supervising PT: Lorena Evangelista PT, DPT, Cert DN PT Dx: M47.812; Z86.73; M62.81; Onset Date: 2020 (more content not included)... [facility] Visit (Internal Medic ine)on 03-29-2022 Follow-up visit Diagnoses/Problems Assessed H/O ETOH abuse (305.03) (F10.11) Essential tremor (333.1) (G25.0) H/O: CVA (cerebrovascular accident) (V12.54) (Z86.73) CRF (chronic renal failure), stage 3 (moderate) (585.3) (N18.30) Hypertension associated with type 2 diabetes mellitus (250.80,401.9) (E11.59,I15.2) DM2 (diabetes mellitus, type 2) (250.00) (E11.9) Bruit of left carotid artery (785.9) (R09.89) Orders Benign prostatic hyperplasia with urinary obstruction and other lower urinary tract symptoms Renew: Tamsulosin HCl - 0.4 MG Oral Capsule; 1 TAB DAILY Rx By: Phyllis Mae; Dispense: 0 Days ; #:90 Capsule; Refill: 3;For: Benign prostatic hyperplasia with urinary obstruction and other lower urinary tract symptoms; BANDAR = N; Verified Transmission to [id number]; Last Updated By: [employer]; 03/29/2022 11:57:57 AM COPD (chronic obstructive pulmonary disease) Renew: Ventolin HFA 108 (90 Base) MCG/ACT Inhalation Aerosol Solution (Albuterol Sulfate HFA); USE 2 PUFFS EVERY 6 HOURS FOR SHORTNESS OF BREATH OR WHEEZING Rx By: Phyllis Mae; Dispense: 0 Days ; #:1 X 8 GM Inhaler; Refill: 11;For: COPD (chronic obstructive pulmonary disease); BANDAR = N; Verified Transmission to [facility] #[id number]; Last Updated By: [employer]; 03/29/2022 11:57:54 AM Essential tremor, H/O ETOH abuse, H/O: CVA (cerebrovascular accident) Neurology - General Referral Evaluation and Treatment Evaluate AND Treat, PT WANTS TO GO TO [facility] Status: Hold For - Scheduling Requested for: [id number] Ordered;For: Essential tremor, H/O ETOH abuse, H/O: CVA (cerebrovascular accident); Ordered By: Phyllis Mae Performed: Due: [id number] H/O: CVA (cerebrovascular accident) Renew: Clopidogrel Bisulfate 75 MG Oral Tablet; Take 1 tablet daily Rx By: Phyllis Mae; Dispense: 0 Days ; #:90 Tablet; Refill: 3;For: H/O: CVA (cerebrovascular accident); BANDAR = N; Verified Transmission to [facility] #[id number]; Last Updated By: [employer]; 03/29/2022 11:57:50 AM Hypertension associated with type 2 diabetes mellitus Renew: Labetalol HCl - 100 MG Oral Tablet; TAKE 1 TABLET EVERY 12 HOURS DAILY Rx By: Phyllis Mae; Dispense: 90 Days ; #:180 Tablet; Refill: 3;For: Hypertension associated with type 2 diabetes mellitus; BANDAR = N; Verified Transmission to [facility] #[id number]; Last Updated By: [employer]; 03/29/2022 11:57:54 AM Hypertriglyceridemia Renew: Fenofibrate 54 MG Oral Tablet; TAKE 1 TABLET DAILY Rx By: Phyllis Mae; Dispense: 90 Days ; #:90 Tablet; Refill: 3;For: Hypertriglyceridemia; BANDAR = N; Verified Transmission to [facility] #[id number]; Last Updated By: [employer]; 03/29/2022 11:57:54 AM Patient Discussion/Summary 3 MON. CMP, HGBA1C(TO [facility]) Provider Impressions ADVISED FOR FALL PRECAUTION, ADVISED TO FINISH THE PHYSICAL TX.. ADVISED TO FOLLOW THE LOW FAT, LOW CALORIE DIET AND TO EAT SMALLER PORTIONS MORE FREQUENT SERVINGS. EXPLAINED THE DIFFERENTIAL DX OF TREMOR , INCLUDING ETOH INDUCED . ADVISED TO MONITOR THE BP AND TO HAVE LOW SALT DIET, ADVISED TO KEEP THE F/U WITH VASCULAR SURGEON . Chief Complaint F/U VASCULAR. PT WANTS RX FOR ISOSORBIDE - ONE DAILY. NEEDS MED REFILLS History of Present IllnessF/U ON LIMB WEAKNESS . HASN'T STARTED THE PHYSICAL TX YET. 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 STILL DRINKS ETOH,BUT PER PT NOT DAILY( HAD ONE DRINK AFTER SEVERAL FEW MONTHS) . Review of Systems Constitutional: not feeling poorly, no fever, no recent weight gain and no recent weight loss. Eyes: no blurred vision and no diplopia. ENT: no hearing loss, no tinnitus, no earache, no sore throat, no hoarseness and no swollen glands in the neck. Cardiovascular: no chest pain, no tightness or heavy pressure, no shortness of breath, no palpitations and no lower extremity edema. Respiratory: no cough, not coughing up sputum and no wheezing that is consistent with asthma. Gastrointestinal: no change in bowel habits, no diarrhea, no constipation, no bloody stools, no nausea, no vomiting, no abdominal pain, no signs and symptoms of ulcer disease, no leila colored stools and no intolerance to fatty foods. Genitourinary: no urinary frequency, no dysuria, no hematuria, no burning sensation during urination, urinary stream is not smaller and urinary stream does not start and stop. Musculoskeletal: no arthralgias, no joint stiffness, no muscle weakness, no back pain, no difficulty walking and as noted in HPI. Skin: no rashes, no change in skin color and pigmentation, no skin lesions and no skin lumps. Neurological: no headaches, no dizziness, no seizures, no tingling, no numbness, no signs and symptoms of stroke, no limb weakness and as noted in HPI. Psychiatric: no confusion, no memory lapses or loss, no depression and no sleep disturbances. Endocrine: no goiter, no thyroid disorder, no diabetes mellitus, no excessive thirst, no dry skin, no cold intolerance, no heat intolerance and no in (more content not included)... [facility] Tobacco Screening.on 022 Fall risk assessment a) No falls within the last year [facility] Internal Medicine Work Phone: Tobacco use status [facility] a) Yes [facility] Internal Medicine Work Phone: Tobacco Screening. Yes [facility] Internal Medicine Work Phone: Therapy Communicationon 05-1 7-2022 Therapy Communication Message STEVO ELIZALDE canceled today . Reason F. 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) (I65.01) Stenosis of left carotid artery (433.10) (I65.22) Iliac artery stenosis, bilateral (447.1) (I77.1) Hypertension associated with type 2 diabetes mellitus (250.80,401.9) (E11.59,I15.2) COPD (chronic obstructive pulmonary disease) (496) (J44.9)1 Vascular myelopathies (336.1) (G95.19)1 EtOH dependence (303.90) (F10.20)1 1 Amended By: Phyllis Mae; Mar 01 2022 6:37 PM ESTOrders DJD (degenerative joint disease), cervical, H/O: CVA (cerebrovascular accident), Muscle weakness of lower extremity Physical Therapy - General Referral Evaluation and Treatment Evaluate AND Treat, PT WANTS IT AT [facility] Status: Complete Done: [id number] Ordered; For: DJD (degenerative joint disease), cervical, H/O: CVA (cerebrovascular accident), Muscle weakness of lower extremity; Ordered By: Phyllis Mae Performed: Due: [id number]; Last Updated By: Jillian Can; 03/01/2022 2:39:34 PM CALL [facility] AND SET UP PT APPOINTMENT Monday03/15/2022 AT 1130AM ARRIVE AT 1115AM. PT WANTS AT [facility] AND WILL CALL BACK TO SCHEDULE AFTER SHE CHECKS HER SCHEDULE Hyperlipemia Renew: Atorvastatin Calcium 20 MG Oral Tablet; TAKE 1 TABLET DAILY Rx By: Phyllis Mae; Dispense: 90 Days ; #:90 Tablet; Refill: 3; For: Hyperlipemia; BANDAR = N; Verified Transmission [id number]; Last Updated By: Alexx Morales; 03/01/2022 1:38:38 PM Patient Discussion/Summary 1 MON FAX THE RESULT OF CAROTID DOPPLER AND U/S OF ABDOMINAL AORTA DR MARTINEZ AT [facility] Provider Impressions TEST RESULTS WERE DISCUSSED. I HIGHLY ADVISED THE PT TO HAVE VISIT WITH HIS VASCULAR SURGEON WITH HAVING MULTIPLE ARTERIAL OCCLUSION. ADVISED TO FOLLOW THE LOW FAT, LOW CALORIE DIET AND TO EAT SMALLER PORTIONS MORE FREQUENT SERVINGS. ADVISED TO MONITOR THE BP AND TO HAVE LOW SALT DIET, ADVISED FOR FALL PRECAUTION, ADVISED TO APPLY WARM COMPRESSION AND TO USE OTC PAIN CREAM PRN. PT IS STRONGLY ADVISED TO DECREASE AND THE STOP THE ETOH . 1 1 Amended By: Phyllis Mae; Mar 01 2022 6:42 PM ESTChief Complaint FU VISIT U/S AORTA NO CONCERNS TODAY History of Present IllnessF/U ON CAROTID DOPPLER AND U/S OF ABDOMINAL AORTA. . DIDN'T FINISH THE PHYSICAL TX LAST YEAR. HAS B/L LEG WEAKNESS . HAD NO RECENT FALLS.. PT IS ASYMPTOMATIC WITH HAVING VASCULAR MYELOPATHY , COPD HAS BEEN STABLE.. STILL DRINKS ETOH, BUT LESS FREQUENT.1 1 Amended By: Phyllis Mae; Mar 01 2022 6:42 PM ESTReview of Systems Constitutional: not feeling poorly, no fever, no recent weight gain and no recent weight loss. Eyes: no blurred vision and no diplopia. ENT: no hearing loss, no tinnitus, no earache, no sore throat, no hoarseness and no swollen glands in the neck. Cardiovascular: no chest pain, no tightness or heavy pressure, no shortness of breath, no palpitations and no lower extremity edema. Respiratory: no cough, not coughing up sputum and no wheezing that is consistent with asthma. Gastrointestinal: no change in bowel habits, no diarrhea, no constipation, no bloody stools, no nausea, no vomiting, no abdominal pain, no signs and symptoms of ulcer disease, no leila colored stools and no intolerance to fatty foods. Genitourinary: no urinary frequency, no dysuria, no hematuria, no burning sensation during urination, urinary stream is not smaller and urinary stream does not start and stop. Musculoskeletal: no arthralgias, no joint stiffness, no muscle weakness, no back pain, no difficulty walking and as noted in HPI. Skin: no rashes, no change in skin color and pigmentation, no skin lesions and no skin lumps. Neurological: no headaches, no dizziness, no seizures, no tingling, no numbness, no signs and symptoms of stroke and no limb weakness. Psychiatric: no confusion, no memory lapses or loss, no depression and no sleep disturbances. Endocrine: no goiter, no thyroid disorder, no diabetes mellitus, no excessive thirst, no dry skin, no cold intolerance, no heat intolerance and no increased urinary frequency. Hematologic/Lymphatic: is not slow to heal, does not bleed easily, does not bruise easily, no thrombophlebitis, no anemia and no history of blood transfusion. All other systems have been reviewed and are negative for complaint. Active Problems Problems Advance directive discussed with patient (V65.49) (Z71.89) Anemia in CKD (chronic kidney disease) (285.21) (N18.9,D63.1) Anxiety (300.00) (F41.9) Benign prostatic hyperplasia with urinary obstruction and other lower urinary tract symptoms (600.21) (N40.1,N13.8) Bruit of left carotid artery (785.9) (R09.89) Cholelithiasis (574.20) (K80.20) Chroni (more content not included)... Normal Touchworks Tobacco Screening.on 022 Fall risk assessment a) No falls within the last year [facility] Internal Medicine Work Phone: Tobacco use status [facility] a) Yes [facility] Internal Medicine Work Phone: Tobacco Screening. Yes [facility] Internal Medicine Work Phone: Medicare Annual Wellness Vis iton 01-04-2022 Medicare Annual Wellness Visit *Chief Complaint MEDICARE WELLNESS AND F/U. NO COMPLAINTS Adult Risk Screening Living Will. Living Will: No living will on file. Healthcare POA: No healthcare proxy on file. Requested patient bring documents again on next visit. History of Present Illness The patient is being seen for the subsequent annual wellness visit. Past Medical, Surgical and Family History: reviewed and updated in chart. Medications and Supplements: Review of all medications by a prescribing practitioner or clinical pharmacist (such as prescriptions, OTCs, herbal therapies and supplements) documented in the medical record. No, the patient is not using opioids. Patient Self Assessment of Health Status: fair. Tobacco use: User Alcohol use: User Illicit drug use: Non-User Current diet: Diabetic Diet. Exercise Frequency: the patient does not exercise. Depression/Suicide Screening: Patient has a current diagnosis of depression. Hearing Impairment: none. Cognitive Impairment: No cognitive impairment observed. Bathing: performs independently. Dressing: performs independently. Walking: needs assistance. Managing Finances: needs assistance. Shopping: dependent. Managing Medications: needs assistance. Housework / Basic Home Maintenance: needs assistance. Falls Risk Screening:. STEVO has not fallen in the last 6 months. His fall did not result in injury. Care Plan Low/Moderate Risk: Regular physical activity such as walking, water aerobics or dora chi to improve strength, balance, coordination and flexibility. Wear appropriate, sensible shoe wear. Remove fall hazards at home such as loose rugs, obstacles, use non-slip surface in bath or shower. Keep living space well lit. Home safety risk factors: none. LAB F/U (DONE BY HAND GRINDER ) . MEDICARE WELLNESS EXAM.. CRF , CHRONIC ANGINA , DIABETIC NEUROPATHY NEUROPATHY ,HTN AND DM2 HAVE BEEN STABLE.. STILL DRINKS ETOH ,BUT LESS FREQUENT.(PER PT). Review of Systems Constitutional: not feeling poorly, no fever, no recent weight gain and no recent weight loss. Eyes: no blurred vision and no diplopia. ENT: no hearing loss, no tinnitus, no earache, no sore throat, no hoarseness and no swollen glands in the neck. Cardiovascular: no chest pain, no tightness or heavy pressure, no shortness of breath, no palpitations and no lower extremity edema. Respiratory: no cough, not coughing up sputum and no wheezing that is consistent with asthma. Gastrointestinal: no change in bowel habits, no diarrhea, no constipation, no bloody stools, no nausea, no vomiting, no abdominal pain, no signs and symptoms of ulcer disease, no leila colored stools and no intolerance to fatty foods. Genitourinary: no urinary frequency, no dysuria, no hematuria, no burning sensation during urination, urinary stream is not smaller and urinary stream does not start and stop. Musculoskeletal: no arthralgias, no joint stiffness, no muscle weakness, no back pain and no difficulty walking. Skin: no rashes, no change in skin color and pigmentation, no skin lesions and no skin lumps. Neurological: no headaches, no dizziness, no seizures, no tingling, no numbness, no signs and symptoms of stroke and no limb weakness. Psychiatric: no confusion, no memory lapses or loss, no depression and no sleep disturbances. Endocrine: no goiter, no thyroid disorder, no diabetes mellitus, no excessive thirst, no dry skin, no cold intolerance, no heat intolerance and no increased urinary frequency. Hematologic/Lymphatic: is not slow to heal, does not bleed easily, does not bruise easily, no thrombophlebitis, no anemia and no history of blood transfusion. All other systems have been reviewed and are negative for complaint. *Active Problems Anemia in CKD (chronic kidney disease) (285.21) (N18.9,D63.1) Benign prostatic hyperplasia with urinary obstruction and other lower urinary tract symptoms (600.21) (N40.1,N13.8) Cholelithiasis (574.20) (K80.20) Chronic cough (786.2) (R05.3) Chronic low back pain (724.2,338.29) (M54.50,G89.29) Chronic pain disorder (338.4) (G89.4) Chronic shortness of breath (786.05) (R06.02) Chronic stable angina (413.9) (I20.8) COPD (chronic obstructive pulmonary disease) (496) (J44.9) CRF (chronic renal failure), stage 3 (moderate) (585.3) (N18.30) Debility (799.3) (R53.81) Diabetic neuropathy (250.60,357.2) (E11.40) DJD (degenerative joint disease), cervical (721.0) (M47.812) DM2 (diabetes mellitus, type 2) (250.00) (E11.9) Early satiety (780.94) (R68.81) Encounter for immunization (V03.89) (Z23) Encounter for Medicare annual wellness exam (V70.0) (Z00.00) Encounter for screening for lung cancer (V76.0) (Z12.2) Essential tremor (333.1) (G25.0) EtOH dependence (303.90) (F10.20) Fatigue (780.79) (R53.83) GERD (gastroesophageal reflux disease) (530.81) (K21.9) H/O: CVA (cerebrovascular accident) (V12.54) (Z86.73) Hyperlipemia (272.4) (E78.5) Hypertension associated with type 2 diabetes mellitus ( (more content not included)... Normal Touchworks Tobacco Screening.on 022 Fall risk assessment b) One or more fall s in the last year [facility] Work Phone: Tobacco use status CP a) Yes [facility] Work Phone: Tobacco Screening. Yes [facility] Work Phone: Tobacco Screening.on 021 Fall risk assessment b) One or more fall s in the last year [facility] Work Phone: Tobacco use status CP a) Yes [facility] Work Phone: Tobacco Screening. Yes [facility] Work Phone: Complete Blood Count + Diffe ilanaon 09-29-2021 Basophils/100 WBC (Bld) 1.7 % 0.0 - 2.0 [facility] Work Phone: Erythrocyte distribution width (RBC) [Ratio] 13.7 % See Below [facility] Work Phone: Comment on above: Reference Range: 11. 5 - 14.5 Hematocrit (Bld) [Volume fraction] 42.5 % See Below [facility] Work Phone: Comment on above: Reference Range: 41. 0 - 52.0 Hemoglobin (Bld) [Mass/Vol] 14.0 g/dL See Below [facility] Work Phone: Comment on above: Reference Range: 13. 5 - 17.5 Lymphocytes/100 WBC (Bld) 38.5 % See Below [facility] Work Phone: Comment on above: Reference Range: 13. 0 - 44.0 MCHC (RBC) [Mass/Vol] 32.9 g/dL See Below [facility] Work Phone: Comment on above: Reference Range: 32. 0 - 36.0 MCV (RBC) [Entitic vol] 110 fL above hi gh threshold 80 - 100 [facility] Work Phone: Monocytes/100 WBC (Bld) 10.2 % 2.0 - 10.0 [facility] Work Phone: Neutrophils/100 WBC (Bld) 45.4 % See Below [facility] Work Phone: Comment on above: Reference Range: 40. 0 - 80.0 Platelets (Bld) [#/Vol] 235 10*3/uL 150 - 450 [facility] Work Phone: RBC (Bld) [#/Vol] 3.86 {x10E12/L} below low threshold See Below [facility] Work Phone: Comment on above: Reference Range: 4.5 0 - 5.90 WBC (Bld) [#/Vol] 7.1 10*3/uL 4.4 - 11.3 [facility] Work Phone: Complete Blood Count + Differential 0.10 {x10E9/L} See Below [facility] Work Phone: Comment on above: Reference Range: 0.0 0 - 0.10 Complete Blood Count + Differential 0.30 {x10E9/L} See Below [facility] Work Phone: Comment on above: Reference Range: 0.0 0 - 0.40 Complete Blood Count + Differential 0.70 {x10E9/L} See Below [facility] Work Phone: Comment on above: Reference Range: 0.0 5 - 0.80 Complete Blood Count + Differential 2.70 {x10E9/L} See Below [facility] Work Phone: Comment on above: Reference Range: 0.8 0 - 3.00 Complete Blood Count + Differential 3.20 {x10E9/L} See Below [facility] Work Phone: Comment on above: Reference Range: 1.6 0 - 5.50 Percent differential counts (%) should be interpreted in the context of the absolute cell counts (cells/L). Complete Blood Count + Differential 4.2 % 0.0 - 6.0 [facility] Work Phone: Complete Blood Count + Differential 0.1 {/100_WBC} [facility] Work Phone: Laboratory - Chemistry and C hemistry - challengeon 09-29-2021 Albumin BCP dye [Mass/Vol] 4.2 g/dL 3.4 - 5.0 [facility] Work Phone: ALP [Catalytic activity/Vol] 82 U/L 33 - 136 [facility] Work Phone: ALT With P-5'-P [Catalytic activity/Vol] 13 U/L 10 - 52 [facility] Work Phone: Comment on above: Patients treated wit h Sulfasalazine may generate falsely decreased results for ALT. Anion gap [Moles/Vol] 18 mmol/L 10 - 20 [facility] Work Phone: AST With P-5'-P [Catalytic activity/Vol] 16 U/L 9 - 39 [facility] Work Phone: Bilirubin [Mass/Vol] 0.4 mg/dL 0.0 - 1.2 [facility] Work Phone: Calcium [Mass/Vol] 9.7 mg/dL 8.6 - 10.3 [facility] Work Phone: Chloride [Moles/Vol] 104 mmol/L 98 - 107 [facility] Work Phone: CO2 [Moles/Vol] 22 mmol/L 21 - 32 [facility] Internal [facility] Work Phone: Creatinine [Mass/Vol] 1.71 mg/dL above high threshold See Below [facility] Work Phone: Comment on above: Reference Range: 0.5 0 - 1.30 Glucose [Mass/Vol] 149 mg/dL above high threshold 74 - 99 [facility] Work Phone: Potassium [Moles/Vol] 4.4 mmol/L 3.5 - 5.3 [facility] Work Phone: Protein [Mass/Vol] 7.3 g/dL 6.4 - 8.2 [facility] Work Phone: Sodium [Moles/Vol] 140 mmol/L 136 - 145 [facility] Work Phone: Urea nitrogen [Mass/Vol] 24 mg/dL above high threshold 6 - 23 [facility] Work Phone: Lipid Panelon 09-29-2021 Cholesterol [Mass/Vol] 217 mg/dL above hig h threshold 0 - 199 [facility] Work Phone: Comment on above: . AGE DESIRABLE BORD THIERRY HIGH HIGH 0-19 Y 0 - 169 170 - 199 >/= 200 20-24 Y 0 - 189 190 - 224 >/= 225 >24 Y 0 - 199 200 - 239 >/= 240 All ranges are based on fasting samples. Specific therapeutic targets will vary based on patient-specific cardiac risk.. Pediatric guidelines reference:Pediatrics 2011, 128(S5). Adult guidelines reference: NCEP ATPIII Guidelines, JE 2001, 258:2486-97. Venipuncture immediately after or during the administration of Metamizole may lead to falsely low results. Testing should be performed immediately prior to Metamizole dosing. Cholesterol in HDL [Mass/Vol] 47.0 mg/dL [facility] Work Phone: Comment on above: . AGE VERY LOW LOW N ORMAL HIGH 0-19 Y < 35 < 40 40-45 ---- 20-24 Y ---- < 40 >45 ---- >24 Y ---- < 40 40-60 >60. Cholesterol in LDL [Mass/Vol] - 0 - 99 [facility] Work Phone: Comment on above: . NEAR BORD AGE KITTY RABLE OPTIMAL HIGH HIGH VERY HIGH 0-19 Y 0 - 109 --- 110-129 >/= 130 ---- 20-24 Y 0 - 119 --- 120-159 >/= 160 ---- >24 Y 0 - 99 100-129 130-159 160-189 >/=190.THE CALCULATION OF LDL AND VLDL ARE INACCURATEWHEN TRIGLYCERIDES ARE GREATER THAN 400 MG/DLOR WHEN THE PATIENT IS NON-FASTING. IF LDLMEASUREMENT IS NECESSARY CONTACT THE TESTINGLABORATORY FOR AN ALTERNATIVE LDL ASSAY. Cholesterol.total/Caren sterol in HDL [Mass ratio] 4.6 {ratio} [facility] Work Phone: Comment on above: REF VALUESDESIRABLE < 3.4HIGH RISK > 5.0 Triglyceride [Mass/Vol] 582 mg/dL above hi gh threshold 0 - 149 [facility] Work Phone: Comment on above: . AGE DESIRABLE BORD THIERRY HIGH HIGH VERY HIGH 0 D-90 D 19 - 174 ---- ---- ----91 D- 9 Y 0 - 74 75 - 99 >/= 100 ---- 10-19 Y 0 - 89 90 - 129 >/= 130 ---- 20-24 Y 0 - 114 115 - 149 >/= 150 ---- >24 Y 0 - 149 150 - 199 200- 499 >/= 500. Venipuncture immediately after or during the administration of Metamizole may lead to falsely low results. Testing should be performed immediately prior to Metamizole dosing. Lipid Panel SEE COMMENT 0 - 40 [facility] Work Phone: Comment on above: Unable to calculate VLDL. No Panel Informationon 09-29 47 {mL/min/1.73m2} Abnormal >60 [facility] Work Phone: Comment on above: CALCULATIONS OF TELMA MATED GFR ARE PERFORMED USING THE MDRD STUDY EQUATION FOR THE IDMS-TRACEABLE CREATININE METHODS. CLIN CHEM 2007;53:766-72 39 {mL/min/1.73m2} Abnormal >60 [facility] Work Phone: NORMAL [facility] Work Phone: Tobacco Screening.on 021 Fall risk assessment b) One or more fall s in the last year [facility] Work Phone: Tobacco use status CP a) Yes [facility] Work Phone: Tobacco Screening. Yes [facility] Work Phone: Folate, Serumon 09-08-2021 Folate [Mass/Vol] 11.3 ng/mL >5.0 [facility] Work Phone: Comment on above: Low <3.4Borderline 3 .4-5.0Normal >5.0. Patients receiving more than 5 mg/day of biotin may have interference in test results. A sample should be taken no sooner than eight hours after previous dose. Contact the testing laboratory for additional information. Magnesium, Serumon Magnesium [Mass/Vol] 2.03 mg/dL See Below [facility] Work Phone: Comment on above: Reference Range: 1.6 0 - 2.40 Vitamin B12, Serumon Cobalamin (Vitamin B12) [Mass/Vol] 397 pg/mL 211 - 911 [facility] Work Phone: Tobacco Screening.on 021 Fall risk assessment b) One or more fall s in the last year [facility] Work Phone: Tobacco use status CPHS a) Yes [facility] Work Phone: Tobacco Screening. Yes [facility] Work Phone: Albumin, Serumon 08-16-2021 Albumin BCP dye [Mass/Vol] 4.2 g/dL 3.4 - 5.0 [facility] [place] Work Phone: Bicarbonate, Serumon 021 CO2 [Moles/Vol] 21 mmol/L 21 - 32 [facility] [address] [place] Work Phone: Blood Urea Nitrogen, Serumon 08-16-2021 Urea nitrogen [Mass/Vol] 33 mg/dL above high threshold 6 - 23 [facility] [address] [place] Work Phone: Calcium, Serumon 08-16-2021 Calcium [Mass/Vol] 9.4 mg/dL 8.6 - 10.3 [facility] [address] [place] Work Phone: Chloride, Serumon 08-16-2021 Chloride [Moles/Vol] 105 mmol/L 98 - 107 [facility] [address] [place] Work Phone: Creatinine, Serumon 08-16-20 21 Creatinine [Mass/Vol] 1.85 mg/dL above high threshold See Below [facility] [address] [place] Work Phone: Comment on above: Reference Range: 0.5 0 - 1.30 Creatinine, Serum 44 {mL/min/1.73m2} Abnormal >60 [facility] [place] Work Phone: Comment on above: CALCULATIONS OF TELMA MATED GFR ARE PERFORMED USING THE MDRD STUDY EQUATION FOR THE IDMS-TRACEABLE CREATININE METHODS. CLIN CHEM 2007;53:766-72 Creatinine, Serum 36 {mL/min/1.73m2} Abnormal >60 [facility] [address] [place] Work Phone: Laboratory - Chemistry and C hemistry - challengeon 08-16-2021 Anion gap [Moles/Vol] 18 mmol/L 10 - 20 [facility] [address] [place] Work Phone: Potassium [Moles/Vol] 4.9 mmol/L 3.5 - 5.3 [facility] [address] [place] Work Phone: Magnesium, Serumon Magnesium [Mass/Vol] 2.04 mg/dL See Below [facility] [address] [place] Work Phone: Comment on above: Reference Range: 1.6 0 - 2.40 Parathormone Intact, Serumon 08-16-2021 Parathyrin.intact [Mass/Vol] 22.3 pg/mL See Below [facility] [address] [place] Work Phone: Comment on above: Reference Range: 18. 5 - 88.0 Phosphorus, Serumon 08-16-20 21 Phosphate [Mass/Vol] 5.0 mg/dL above high threshold 2.5 - 4.9 [facility] [place] [address] [place] Work Phone: Comment on above: The performance cassi acteristics of phosphorus testing in heparinized plasma have been validated by the individual laboratory site where testing is performed. Testing on heparinized plasma is not approved by the FDA; however, such approval is not necessary. Sodium, Serumon 08-16-2021 Sodium [Moles/Vol] 139 mmol/L 136 - 145 [facility] [address] [place] Work Phone: Total Protein, Urine Spoton 08-16-2021 Creatinine (U) [Mass/Vol] Canceled [facility] [place] [address] [place] Work Phone: Protein (U) [Mass/Vol] Canceled [facility] [place] [address] [place] Work Phone: Protein/Creatinine (U) [Ratio] Canceled [facility] [place] [address] [place] Work Phone: HbA1c (Bld) [Mass fraction]O rdered By: kAila Carroll on 08-03-2021 Interpretation and review of laboratory results Normal [facility] POC Hemoglobin [id number] By : Akila Carroll on 08-03-2021 HbA1c (Bld) [Mass fraction] 5.9 % 4.0 - 6.0 % [facility] Tobacco Screening.on 09-13-2 021 Fall risk assessment a) No falls within the last year [facility] Work Phone: Tobacco use status CPHS a) Yes M [facility] Work Phone: Tobacco Screening. Yes [facility] Work Phone: Laboratory - Drug toxicology on 06-24-2021 Amphetamines Screen Ql Negative Cutoff 20 [facility] Work Phone: Barbiturates Screen Ql Negative Cutoff 50 [facility] Work Phone: Benzodiazepines Screen Ql Negative Cutoff 50 [facility] Work Phone: Cannabinoids Screen Ql Negative Cutoff 20 [facility] Work Phone: Cocaine Screen Ql Negative Cutoff 20 [facility] Work Phone: Methadone Screen Ql Negative Cutoff 25 [facility] Work Phone: Methamphetamine Ql Negative Cutoff 20 MP-[facility]ilio n [facility] Work Phone: Opiates Screen Ql Negative Cutoff 20 [facility] Work Phone: oxyCODONE Ql Negative Cutoff 20 [facility] Work Phone: Phencyclidine Screen Ql Negative Cutoff 10 M P[facility] Work Phone: No Panel Informationon 06-24 Annotation comment [Interpretation] Narrative See Note -[facility] Work Phone: Comment on above: INTERPRETIVE INFORMA TION: Drug Screen 9 Panel, Serum or Plasma - Immunoassay Screen with Reflex to Mass Spectrometry Confirmation/Quantitation1. Methodology: Qualitative Immunoassay Screen2. Drugs/Drug classes reported as "Positive" are automatically reflexed to mass spectrometry confirmation/quantitation testing. An immunoassay unconfirmed positive screen result may be useful for medical purposes but does not meet forensic standards. 3. The absence of expected drug(s) and/or drug metabolite(s) may indicate noncompliance, inappropriate timing of specimen collection relative to drug administration, poor drug absorption, or limitations of testing. The concentration at which the screening test can detect a drug or metabolite varies within a drug class. Specimens for which drugs or drug classes are detected by the screen are automatically reflexed to a second, more specific technology (mass spectrometry). The concentration value must be greater than or equal to the cutoff to be reported as positive. Interpretive questions should be directed to the laboratory.4. For medical purposes only; not valid for forensic use.This test was developed and its performance characteristics determined by [employer]. It has not been cleared or approved by the [place] Food and Drug Administration. This test was performed in a CLIA certified laboratory and is intended for clinical purposes.Performed By: [employer] [place] [id number] Director: Laurie Chavez MD Negative Cutoff 1 [facility] Work Phone: Complete Blood Count + Diffe rentialon 06-21-2021 Basophils/100 WBC (Bld) 2.2 % 0.0 - 2.0 [facility] Work Phone: Erythrocyte distribution width (RBC) [Ratio] 17.3 % above high threshold See Below [facility] Work Phone: Comment on above: Reference Range: 11. 5 - 14.5 Hematocrit (Bld) [Volume fraction] 37.6 % below low threshold See Below [facility] Work Phone: Comment on above: Reference Range: 41. 0 - 52.0 Hemoglobin (Bld) [Mass/Vol] 12.4 g/dL below low threshold See Below [facility] Work Phone: Comment on above: Reference Range: 13. 5 - 17.5 Lymphocytes/100 WBC (Bld) 27.3 % See Below [facility] Work Phone: Comment on above: Reference Range: 13. 0 - 44.0 MCHC (RBC) [Mass/Vol] 32.9 g/dL See Below [facility] Work Phone: Comment on above: Reference Range: 32. 0 - 36.0 MCV (RBC) [Entitic vol] 108 fL above hi gh threshold 80 - 100 [facility] Work Phone: Monocytes/100 WBC (Bld) 7.2 % 2.0 - 10.0 [facility] Work Phone: Neutrophils/100 WBC (Bld) 56.5 % See Below [facility] Work Phone: Comment on above: Reference Range: 40. 0 - 80.0 Platelets (Bld) [#/Vol] 282 10*3/uL 150 - 450 [facility] Work Phone: RBC (Bld) [#/Vol] 3.49 {x10E12/L} below low threshold See Below [facility] Work Phone: Comment on above: Reference Range: 4.5 0 - 5.90 WBC (Bld) [#/Vol] 6.4 10*3/uL 4.4 - 11.3 [facility] Work Phone: Complete Blood Count + Differential 0.10 {x10E9/L} See Below [facility] Work Phone: Comment on above: Reference Range: 0.0 0 - 0.10 Complete Blood Count + Differential 0.40 {x10E9/L} See Below [facility] Work Phone: Comment on above: Reference Range: 0.0 0 - 0.40 Complete Blood Count + Differential 0.50 {x10E9/L} See Below [facility] Work Phone: Comment on above: Reference Range: 0.0 5 - 0.80 Complete Blood Count + Differential 1.80 {x10E9/L} See Below [facility] Work Phone: Comment on above: Reference Range: 0.8 0 - 3.00 Complete Blood Count + Differential 3.60 {x10E9/L} See Below [facility] Work Phone: Comment on above: Reference Range: 1.6 0 - 5.50 Percent differential counts (%) should be interpreted in the context of the absolute cell counts (cells/L). Complete Blood Count + Differential 6.8 % 0.0 - 6.0 [facility] Work Phone: Complete Blood Count + Differential 0.1 {/100_WBC} [facility] Work Phone: Ferritin, Serumon 06-21-2021 Ferritin [Mass/Vol] 183 ug/L 20 - 300 [facility] Work Phone: Folate, Serumon 06-21-2021 Folate [Mass/Vol] 10.2 ng/mL >5.0 [facility] Work Phone: Comment on above: Low <3.4Borderline 3 .4-5.0Normal >5.0. Patients receiving more than 5 mg/day of biotin may have interference in test results. A sample should be taken no sooner than eight hours after previous dose. Contact the testing laboratory for additional information. Laboratory - Chemistry and C hemistry - challengeon 06-21-2021 Albumin BCP dye [Mass/Vol] 3.9 g/dL 3.4 - 5.0 [facility] Work Phone: ALP [Catalytic activity/Vol] 103 U/L 33 - 136 [facility] Work Phone: ALT With P-5'-P [Catalytic activity/Vol] 12 U/L 10 - 52 [facility] Work Phone: Comment on above: Patients treated wit h Sulfasalazine may generate falsely decreased results for ALT. Anion gap [Moles/Vol] 13 mmol/L 10 - 20 [facility] Work Phone: AST With P-5'-P [Catalytic activity/Vol] 14 U/L 9 - 39 [facility] Work Phone: Bilirubin [Mass/Vol] 0.3 mg/dL 0.0 - 1.2 [facility] Work Phone: Calcium [Mass/Vol] 9.5 mg/dL 8.6 - 10.3 [facility] Work Phone: Chloride [Moles/Vol] 105 mmol/L 98 - 107 [facility] Work Phone: CO2 [Moles/Vol] 22 mmol/L 21 - 32 [facility] Work Phone: Creatinine [Mass/Vol] 1.38 mg/dL above high threshold See Below [facility] Work Phone: Comment on above: Reference Range: 0.5 0 - 1.30 Glucose [Mass/Vol] 164 mg/dL above high threshold 74 - 99 [facility] Work Phone: Iron [Mass/Vol] 60 ug/dL 35 - 150 [facility] Work Phone: Iron binding capacity [Mass/Vol] 336 ug/dL 240 - 445 [facility] Work Phone: Potassium [Moles/Vol] 4.5 mmol/L 3.5 - 5.3 [facility] Work Phone: Protein [Mass/Vol] 6.9 g/dL 6.4 - 8.2 [facility] Work Phone: Sodium [Moles/Vol] 135 mmol/L below low threshold 136 - 145 [facility] Work Phone: Urea nitrogen [Mass/Vol] 27 mg/dL above high threshold 6 - 23 [facility] Work Phone: Magnesium, Serumon 1 Magnesium [Mass/Vol] 1.94 mg/dL See Below [facility] Work Phone: Comment on above: Reference Range: 1.6 0 - 2.40 No Panel Informationon 06-21 62 {mL/min/1.73m2} >60 [facility] Work Phone: Comment on above: CALCULATIONS OF TELMA MATED GFR ARE PERFORMED USING THE MDRD STUDY EQUATION FOR THE IDMS-TRACEABLE CREATININE METHODS. CLIN CHEM 2007;[id number] 51 {mL/min/1.73m2} Abnormal >60 [facility] Work Phone: 18 % below low threshold 25 - 45 [facility] Work Phone: NORMAL [facility] Work Phone: Radiologyon 06-21-2021 XR Cervical spine 4 Views Normal [facility] Work Phone: No Panel Informationon 06-14 Normal [facility] Work Phone: Tobacco Screening.on 021 Fall risk assessment b) One or more fall s in the last year [facility] Work Phone: Tobacco use status CPHS a) Yes M [facility] Work Phone: Tobacco Screening. Yes [facility] Work Phone: Glucose (Bld) [Mass/Vol]Orde red By: Bryce Alvarez on 05-11-2021 Glucose [Mass/Vol] 156 mg/dL High 65 - 99 mg/dL [facility] Interpretation and review of laboratory results Abnormal [facility] Glucose [Mass/Vol] 64 mg/dL Low 65 - 99 mg/dL [facility] Interpretation and review of laboratory results Abnormal [facility] Glucose [Mass/Vol] 81 mg/dL 65 - 99 mg/dL [facility] Interpretation and review of laboratory results Normal [facility] Glucose (Bld) [Mass/Vol]Orde red By: Bryce Alvarez on 05-10-2021 Glucose [Mass/Vol] 146 mg/dL High 65 - 99 mg/dL [facility] Interpretation and review of laboratory results Abnormal [facility] Glucose [Mass/Vol] 86 mg/dL 65 - 99 mg/dL [facility] Interpretation and review of laboratory results Normal [facility] Glucose [Mass/Vol] 198 mg/dL High 65 - 99 mg/dL [facility] Interpretation and review of laboratory results Abnormal [facility] Glucose [Mass/Vol] 134 mg/dL High 65 - 99 mg/dL [facility] Interpretation and review of laboratory results Abnormal [facility] Glucose [Mass/Vol] 97 mg/dL 65 - 99 mg/dL [facility] Interpretation and review of laboratory results Normal [facility] Basic metabolic 2000 panelOr dered By: Bryce Alvarez on 05-09-2021 Anion gap [Moles/Vol] 10 mmol/L 10 - 2 0 mmol/L [facility] Calcium [Mass/Vol] 8.5 mg/dL 8.4 - 10. 2 mg/dL [facility] Chloride [Moles/Vol] 110 mmol/L High 98 - 10 8 mmol/L [facility] Creatinine [Mass/Vol] 1.57 mg/dL High 0.80 - 1.30 [facility] GFR/1.73 sq M.predicted CKD-EPI (S/P/Bld) [Vol rate/Area] 43 Low >=60 mL/min/1.73 m2 [facility] Glucose [Mass/Vol] 121 mg/dL High 65 - 99 mg/dL [facility] HCO3 [Moles/Vol] 23 mmol/L 21 - 32 mmol/L [facility] Interpretation and review of laboratory results Abnormal [facility] Potassium [Moles/Vol] 4.4 mmol/L 3.5 - 5.1 mmol/L [facility] Sodium [Moles/Vol] 139 mmol/L 135 - 145 mmol/L [facility] Urea nitrogen [Mass/Vol] 26 mg/dL High 8 - 25 mg/dL [facility] Urea nitrogen/Creatinine [Mass ratio] 16.6 mg/mg [facility] The eGFR should be u sed for monitoring renal function only and not for medication dosing. [facility] CBC WITH AUTO DIFFERENTIALOr dered By: Bryce Alvarez on 05-09-2021 Basophils (Bld) [#/Vol] 0.06 10*3/uL [facility] Basophils/100 WBC (Bld) 0.8 % [facility] (Bld[facility] [#/Vol] 0.31 10*3/uL [facility] Eosinophils/100 WBC (Bld) 4.1 % [facility] Erythrocyte distribution width (RBC) [Entitic vol] 14.1 % 11.6 - 14.8 % [facility] Hematocrit (Bld) [Volume fraction] 26.4 % Low 41.0 - 53.0 % [facility] Hemoglobin (Bld) [Mass/Vol] 8.6 g/dL Low 13.5 - 17.5 g/dL [facility] Immature granulocytes (Bld) [#/Vol] 0.09 10*3/uL [facility] Immature granulocytes/100 WBC (Bld) 1.20 % [facility] Comment on above: The IG parameter is the percentage of metamyelocytes, myelocytes and promyelocytes. An immature granulocyte count (IG) of 1% or more suggests the possibility of infection, an IG count of 3% is very likely related to an infection. Interpretation and review of laboratory results Abnormal [facility] Lymphocytes (Bld) [#/Vol] 2.55 10*3/uL [facility] Lymphocytes/100 WBC (Bld) 33.7 % [facility] MCH (RBC) [Entitic mass] 34.0 pg 26.0 - 34.0 pg [facility] MCHC (RBC) [Mass/Vol] 32.6 g/dL 31.0 - 37.0 g/dL [facility] MCV (RBC) [Entitic vol] 104.3 fL High 80.0 - 100.0 fL [facility] Monocytes (Bld) [#/Vol] 0.92 10*3/uL High [facility] Monocytes/100 WBC (Bld) 12.2 % [facility] Neutrophils (Bld) [#/Vol] 3.63 10*3/uL [facility] Neutrophils/100 WBC (Bld) 48.0 % [facility] Nucleated RBC (Bld) [#/Vol] 0.00 10*3/uL [facility] Nucleated RBC/100 WBC (Bld) [Ratio] 0.0 % [facility] Platelet mean volume (Bld) [Entitic vol] 10.9 fL 9.4 - 12.4 fL [facility] Platelets (Bld) [#/Vol] 265 10*3/uL [facility] RBC (Bld) [#/Vol] 2.53 10*6/uL [facility] WBC (Bld) [#/Vol] 7.56 10*3/uL [facility] Glucose (Bld) [Mass/Vol]Orde red By: Bryce Alvarez on 05-09-2021 Glucose [Mass/Vol] 239 mg/dL High 65 - 99 mg/dL [facility] Interpretation and review of laboratory results Abnormal [facility] Glucose [Mass/Vol] 93 mg/dL 65 - 99 mg/dL [facility] Interpretation and review of laboratory results Normal [facility] Glucose [Mass/Vol] 157 mg/dL High 65 - 99 mg/dL [facility] Interpretation and review of laboratory results Abnormal [facility] Glucose [Mass/Vol] 82 mg/dL 65 - 99 mg/dL [facility] Interpretation and review of laboratory results Normal [facility] Hepatic function 2000 panelO rdered By: Bryce Alvarez on 05-09-2021 Albumin [Mass/Vol] 2.5 g/dL Low 3.2 - 5.2 g/dL [facility] ALP [Catalytic activity/Vol] 156 U/L High 40 - 150 U/L [facility] ALT [Catalytic activity/Vol] 29 U/L 14 - 65 U/L [facility] AST [Catalytic activity/Vol] 21 U/L 0 - 45 U/L [facility] Bilirubin [Mass/Vol] 0.1 mg/dL 0.0 - 1 .3 mg/dL [facility] Bilirubin.conjugated [Mass/Vol] mg/dL 0.0 - 0.4 mg/dL [facility] Interpretation and review of laboratory results Abnormal [facility] Protein [Mass/Vol] 6.3 g/dL 6.0 - 8.0 g/dL [facility] Magnesium LevelOrdered By: Elton Alvarez on 05-09-2021 Magnesium [Mass/Vol] 1.8 mg/dL 1.6 - 2 .4 mg/dL [facility] Magnesium [Mass/Vol]Ordered By: Bryce Alvarez on 05-09-2021 Interpretation and review of laboratory results Normal [facility] Basic metabolic 1999 panelOr dered By: Bryce Alvarez on 05-08-2021 Anion gap [Moles/Vol] 15 mmol/L 10 - 2 0 mmol/L [facility] Calcium [Mass/Vol] 8.6 mg/dL 8.4 - 10. 2 mg/dL [facility] Chloride [Moles/Vol] 111 mmol/L High 98 - 10 8 mmol/L [facility] Creatinine [Mass/Vol] 1.66 mg/dL High 0.80 - 1.30 [facility] GFR/1.73 sq M.predicted CKD-EPI (S/P/Bld) [Vol rate/Area] 41 Low >=60 mL/min/1.73 m2 [facility] Glucose [Mass/Vol] 141 mg/dL High 65 - 99 mg/dL [facility] HCO3 [Moles/Vol] 19 mmol/L Low 21 - 32 mmol/L [facility] Interpretation and review of laboratory results Abnormal [facility] Potassium [Moles/Vol] 4.5 mmol/L 3.5 - 5.1 mmol/L [facility] Sodium [Moles/Vol] 140 mmol/L 135 - 145 mmol/L [facility] Urea nitrogen [Mass/Vol] 28 mg/dL High 8 - 25 mg/dL [facility] Urea nitrogen/Creatinine [Mass ratio] 16.9 mg/mg [facility] The eGFR should be u sed for monitoring renal function only and not for medication dosing. [facility] CBC WITH AUTO DIFFERENTIALOr dered By: Bryce Alvarez on 05-08-2021 Basophils (Bld) [#/Vol] 0.10 10*3/uL [facility] Basophils/100 WBC (Bld) 1.1 % [facility] Eosinophils (Bld) [#/Vol] 0.31 10*3/uL [facility] Eosinophils/100 WBC (Bld) 3.5 % [facility] Erythrocyte distribution width (RBC) [Entitic vol] 14.3 % 11.6 - 14.8 % [facility] Hematocrit (Bld) [Volume fraction] 26.7 % Low 41.0 - 53.0 % [facility] Hemoglobin (Bld) [Mass/Vol] 8.5 g/dL Low 13.5 - 17.5 g/dL [facility] Immature granulocytes (Bld) [#/Vol] 0.06 10*3/uL [facility] Immature granulocytes/100 WBC (Bld) 0.70 % [facility] Comment on above: The IG parameter is the percentage of metamyelocytes, myelocytes and promyelocytes. An immature granulocyte count (IG) of 1% or more suggests the possibility of infection, an IG count of 3% is very likely related to an infection. Interpretation and review of laboratory results Abnormal [facility] Lymphocytes (Bld) [#/Vol] 2.37 10*3/uL [facility] Lymphocytes/100 WBC (Bld) 26.7 % [facility] MCH (RBC) [Entitic mass] 34.0 pg 26.0 - 34.0 pg [facility] MCHC (RBC) [Mass/Vol] 31.8 g/dL 31.0 - 37.0 g/dL [facility] MCV (RBC) [Entitic vol] 106.8 fL High 80.0 - 100.0 fL [facility] Monocytes (Bld) [#/Vol] 1.04 10*3/uL High [facility] Monocytes/100 WBC (Bld) 11.7 % [facility] Neutrophils (Bld) [#/Vol] 5.01 10*3/uL [facility] Neutrophils/100 WBC (Bld) 56.3 % [facility] Nucleated RBC (Bld) [#/Vol] 0.00 10*3/uL [facility] Nucleated RBC/100 WBC (Bld) [Ratio] 0.0 % [facility] Platelet mean volume (Bld) [Entitic vol] 11.3 fL 9.4 - 12.4 fL [facility] Platelets (Bld) [#/Vol] 264 10*3/uL [facility] RBC (Bld) [#/Vol] 2.50 10*6/uL Low [facility] WBC (Bld) [#/Vol] 8.89 10*3/uL [facility] Glucose (Bld) [Mass/Vol]Orde red By: Bryce Alvarez on 05-08-2021 Glucose [Mass/Vol] 145 mg/dL High 65 - 99 mg/dL [facility] Interpretation and review of laboratory results Abnormal [facility] Glucose [Mass/Vol] 163 mg/dL High 65 - 99 mg/dL [facility] Interpretation and review of laboratory results Abnormal [facility] Glucose [Mass/Vol] 92 mg/dL 65 - 99 mg/dL [facility] Interpretation and review of laboratory results Normal [facility] Glucose [Mass/Vol] 83 mg/dL 65 - 99 mg/dL [facility] Interpretation and review of laboratory results Normal [facility] Hepatic function 2000 panelO rdered By: Bryce Alvarez on 05-08-2021 Albumin [Mass/Vol] 2.6 g/dL Low 3.2 - 5.2 g/dL [facility] ALP [Catalytic activity/Vol] 168 U/L High 40 - 150 U/L [facility] ALT [Catalytic activity/Vol] 30 U/L 14 - 65 U/L [facility] AST [Catalytic activity/Vol] 18 U/L 0 - 45 U/L [facility] Bilirubin [Mass/Vol] 0.2 mg/dL 0.0 - 1 .3 mg/dL [facility] Bilirubin.conjugated [Mass/Vol] mg/dL 0.0 - 0.4 mg/dL [facility] Interpretation and review of laboratory results Abnormal [facility] Protein [Mass/Vol] 6.5 g/dL 6.0 - 8.0 g/dL [facility] Magnesium LevelOrdered By: Elton Alvarez on 05-08-2021 Magnesium [Mass/Vol] 1.9 mg/dL 1.6 - 2 .4 mg/dL [facility] Magnesium [Mass/Vol]Ordered By: Bryce Alvarez on 05-08-2021 Interpretation and review of laboratory results Normal [facility] Basic metabolic 2000 panelOr dered By: Bryce Alvarez on 05-07-2021 Anion gap [Moles/Vol] 10 mmol/L 10 - 2 0 mmol/L [facility] Calcium [Mass/Vol] 9.0 mg/dL 8.4 - 10. 2 mg/dL [facility] Chloride [Moles/Vol] 111 mmol/L High 98 - 10 8 mmol/L [facility] Creatinine [Mass/Vol] 1.68 mg/dL High 0.80 - 1.30 [facility] GFR/1.73 sq M.predicted CKD-EPI (S/P/Bld) [Vol rate/Area] 40 Low >=60 mL/min/1.73 m2 [facility] Glucose [Mass/Vol] 62 mg/dL Low 65 - 99 mg/dL [facility] Comment on above: [id number] CALLED ATTENT ION RESULT ON 05/07/2021 @ 0521 TO AND READ BACK BY [id number] in A37 HCO3 [Moles/Vol] 25 mmol/L 21 - 32 mmol/L [facility] Interpretation and review of laboratory results Abnormal [facility] Potassium [Moles/Vol] 4.6 mmol/L 3.5 - 5.1 mmol/L [facility] Sodium [Moles/Vol] 141 mmol/L 135 - 145 mmol/L [facility] Urea nitrogen [Mass/Vol] 27 mg/dL High 8 - 25 mg/dL [facility] Urea nitrogen/Creatinine [Mass ratio] 16.1 mg/mg [facility] The eGFR should be u sed for monitoring renal function only and not for medication dosing. [facility] CBC WITH AUTO DIFFERENTIALOr dered By: Bryce Alvarez on 05-07-2021 Basophils (Bld) [#/Vol] 0.08 10*3/uL [facility] Basophils/100 WBC (Bld) 1.1 % [facility] Eosinophils (Bld) [#/Vol] 0.30 10*3/uL [facility] Eosinophils/100 WBC (Bld) 4.1 % [facility] Erythrocyte distribution width (RBC) [Entitic vol] 14.2 % 11.6 - 14.8 % [facility] Hematocrit (Bld) [Volume fraction] 27.8 % Low 41.0 - 53.0 % [facility] Hemoglobin (Bld) [Mass/Vol] 9.0 g/dL Low 13.5 - 17.5 g/dL [facility] Immature granulocytes (Bld) [#/Vol] 0.10 10*3/uL [facility] Immature granulocytes/100 WBC (Bld) 1.40 % [facility] Comment on above: The IG parameter is the percentage of metamyelocytes, myelocytes and promyelocytes. An immature granulocyte count (IG) of 1% or more suggests the possibility of infection, an IG count of 3% is very likely related to an infection. Interpretation and review of laboratory results Abnormal [facility] Lymphocytes (Bld) [#/Vol] 2.65 10*3/uL [facility] Lymphocytes/100 WBC (Bld) 36.4 % [facility] MCH (RBC) [Entitic mass] 33.6 pg 26.0 - 34.0 pg [facility] MCHC (RBC) [Mass/Vol] 32.4 g/dL 31.0 - 37.0 g/dL [facility] MCV (RBC) [Entitic vol] 103.7 fL High 80.0 - 100.0 fL [facility] Monocytes (Bld) [#/Vol] 0.94 10*3/uL High [facility] Monocytes/100 WBC (Bld) 12.9 % [facility] Neutrophils (Bld) [#/Vol] 3.21 10*3/uL [facility] Neutrophils/100 WBC (Bld) 44.1 % [facility] Nucleated RBC (Bld) [#/Vol] 0.00 10*3/uL [facility] Nucleated RBC/100 WBC (Bld) [Ratio] 0.0 % [facility] Platelet mean volume (Bld) [Entitic vol] 10.6 fL 9.4 - 12.4 fL [facility] Platelets (Bld) [#/Vol] 279 10*3/uL [facility] RBC (Bld) [#/Vol] 2.68 10*6/uL [facility] WBC (Bld) [#/Vol] 7.28 10*3/uL [facility] Glucose (Bld) [Mass/Vol]Orde red By: Bryce Alvarez on 05-07-2021 Glucose [Mass/Vol] 145 mg/dL High 65 - 99 mg/dL [facility] Interpretation and review of laboratory results Abnormal [facility] Glucose [Mass/Vol] 72 mg/dL 65 - 99 mg/dL [facility] Interpretation and review of laboratory results Normal [facility] Glucose [Mass/Vol] 170 mg/dL High 65 - 99 mg/dL [facility] Interpretation and review of laboratory results Abnormal [facility] Glucose [Mass/Vol] 82 mg/dL 65 - 99 mg/dL [facility] Interpretation and review of laboratory results Normal [facility] Glucose [Mass/Vol] 93 mg/dL 65 - 99 mg/dL [facility] Interpretation and review of laboratory results Normal [facility] Hepatic function 2000 panelO rdered By: Bryce Alvarez on 05-07-2021 Albumin [Mass/Vol] 2.7 g/dL Low 3.2 - 5.2 g/dL [facility] ALP [Catalytic activity/Vol] 164 U/L High 40 - 150 U/L [facility] ALT [Catalytic activity/Vol] 30 U/L 14 - 65 U/L [facility] AST [Catalytic activity/Vol] 24 U/L 0 - 45 U/L [facility] Bilirubin [Mass/Vol] 0.2 mg/dL 0.0 - 1 .3 mg/dL [facility] Bilirubin.conjugated [Mass/Vol] 0.1 mg/dL 0.0 - 0.4 mg/dL [facility] Interpretation and review of laboratory results Abnormal [facility] Protein [Mass/Vol] 6.7 g/dL 6.0 - 8.0 g/dL [facility] Magnesium LevelOrdered By: Elton Alvarez on 05-07-2021 Magnesium [Mass/Vol] 2.0 mg/dL 1.6 - 2 .4 mg/dL [facility] Magnesium [Mass/Vol]Ordered By: Bryce Alvarez on 05-07-2021 Interpretation and review of laboratory results Normal [facility] RADIOLOGY SCANSOrdered By: Cyndy Morales on 05-07-2021 Ordered by an unspecified provider. [facility] Glucose (Bld) [Mass/Vol]Orde red By: Bryce Alvarez on 05-06-2021 Glucose [Mass/Vol] 96 mg/dL 65 - 99 mg/dL [facility] Interpretation and review of laboratory results Normal [facility] Glucose [Mass/Vol] 107 mg/dL High 65 - 99 mg/dL [facility] Interpretation and review of laboratory results Abnormal [facility] Glucose [Mass/Vol] 104 mg/dL High 65 - 99 mg/dL [facility] Interpretation and review of laboratory results Abnormal [facility] Glucose [Mass/Vol] 73 mg/dL 65 - 99 mg/dL [facility] Interpretation and review of laboratory results Normal [facility] Basic metabolic 2000 panelOr dered By: Bryce Alvarez on 05-05-2021 Anion gap [Moles/Vol] 10 mmol/L 10 - 2 0 mmol/L [facility] Calcium [Mass/Vol] 8.9 mg/dL 8.4 - 10. 2 mg/dL [facility] Chloride [Moles/Vol] 109 mmol/L High 98 - 10 8 mmol/L [facility] Creatinine [Mass/Vol] 1.52 mg/dL High 0.80 - 1.30 [facility] GFR/1.73 sq M.predicted CKD-EPI (S/P/Bld) [Vol rate/Area] 45 Low >=60 mL/min/1.73 m2 [facility] Glucose [Mass/Vol] 122 mg/dL High 65 - 99 mg/dL [facility] HCO3 [Moles/Vol] 26 mmol/L 21 - 32 mmol/L [facility] Interpretation and review of laboratory results Abnormal [facility] Potassium [Moles/Vol] 4.7 mmol/L 3.5 - 5.1 mmol/L [facility] Sodium [Moles/Vol] 140 mmol/L 135 - 145 mmol/L [facility] Urea nitrogen [Mass/Vol] 19 mg/dL 8 - 25 mg/dL [facility] Urea nitrogen/Creatinine [Mass ratio] 12.5 mg/mg [facility] The eGFR should be u sed for monitoring renal function only and not for medication dosing. [facility] CBC WITH AUTO DIFFERENTIALOr dered By: Bryce Alvarez on 05-05-2021 Basophils (Bld) [#/Vol] 0.06 10*3/uL [facility] Basophils/100 WBC (Bld) 0.7 % [facility] Eosinophils (Bld) [#/Vol] 0.34 10*3/uL [facility] Eosinophils/100 WBC (Bld) 3.9 % [facility] Erythrocyte distribution width (RBC) [Entitic vol] 14.4 % 11.6 - 14.8 % [facility] Hematocrit (Bld) [Volume fraction] 28.9 % Low 41.0 - 53.0 % [facility] Hemoglobin (Bld) [Mass/Vol] 9.2 g/dL Low 13.5 - 17.5 g/dL [facility] Immature granulocytes (Bld) [#/Vol] 0.10 10*3/uL [facility] Immature granulocytes/100 WBC (Bld) 1.10 % [facility] Comment on above: The IG parameter is the percentage of metamyelocytes, myelocytes and promyelocytes. An immature granulocyte count (IG) of 1% or more suggests the possibility of infection, an IG count of 3% is very likely related to an infection. Interpretation and review of laboratory results Abnormal [facility] Lymphocytes (Bld) [#/Vol] 2.30 10*3/uL [facility] Lymphocytes/100 WBC (Bld) 26.3 % [facility] MCH (RBC) [Entitic mass] 33.6 pg 26.0 - 34.0 pg [facility] MCHC (RBC) [Mass/Vol] 31.8 g/dL 31.0 - 37.0 g/dL [facility] MCV (RBC) [Entitic vol] 105.5 fL High 80.0 - 100.0 fL [facility] Monocytes (Bld) [#/Vol] 0.93 10*3/uL High [facility] Monocytes/100 WBC (Bld) 10.7 % [facility] Neutrophils (Bld) [#/Vol] 5.00 10*3/uL [facility] Neutrophils/100 WBC (Bld) 57.3 % [facility] Nucleated RBC (Bld) [#/Vol] 0.00 10*3/uL [facility] Nucleated RBC/100 WBC (Bld) [Ratio] 0.0 % [facility] Platelet mean volume (Bld) [Entitic vol] 11.1 fL 9.4 - 12.4 fL [facility] Platelets (Bld) [#/Vol] 294 10*3/uL [facility] RBC (Bld) [#/Vol] 2.74 10*6/uL [facility] WBC (Bld) [#/Vol] 8.73 10*3/uL [facility] Glucose (Bld) [Mass/Vol]Orde red By: Bryce Alvarez on 05-05-2021 Glucose [Mass/Vol] 90 mg/dL 65 - 99 mg/dL [facility] Interpretation and review of laboratory results Normal [facility] Glucose [Mass/Vol] 149 mg/dL High 65 - 99 mg/dL [facility] Interpretation and review of laboratory results Abnormal [facility] Glucose [Mass/Vol] 98 mg/dL 65 - 99 mg/dL [facility] Interpretation and review of laboratory results Normal [facility] Glucose [Mass/Vol] 128 mg/dL High 65 - 99 mg/dL [facility] Interpretation and review of laboratory results Abnormal [facility] US RENAL AND BLADDEROrdered By: Bryce Alvarez on 05-05-2021 No hydronephrosis or nephrolithiasis. Nonspecific trace perinephric fluid. Moderate postvoid residual volume, 107 mL. [employer] Workstation ID: [id number] [facility] EXAMINATION: US RENAL AND BLADDER HISTORY: ORDERING SYSTEM PROVIDED HISTORY: Obstructive uropathy, TECHNOLOGIST PROVIDED HISTORY: Illness/Other Reason for exam: Obstructive uropathy/patient states renal failure Cancer History: un Surgery, RadiationHistory: un Encounter Type: Subsequent/Follow-up Additional signs and symptoms: no ORDERING SYSTEM PROVIDED DIAGNOSIS CODES: M54.2 Neck pain N17.9 Acute renal failure superimposed on chronic kidney disease, unspecified CKD stage, unspecified acute renal failure type (HCC) N18.9 Acute renal failure superimposed on chronic kidney disease, unspecified CKD stage, unspecified acute renal failure type (HCC) E87.5 Hyperkalemia N39.0 Acute UTI Z86.73 H/O: CVA (cerebrovascular accident) G93.41 Metabolic encephalopathy COMPARISON: 04/06/2021. TECHNIQUE: Ultrasound of the kidneys and bladder. FINDINGS: Right kidney: Normal in size and echogenicity. Measures 9.7 x 4.6 x 5.0 cm. Normal cortical thickness of 1.2 cm. Normal cortical medullary differentiation pattern. No hydronephrosis or renal calculus. Nonspecific small amount of perinephric fluid. Left kidney: Normal in size and echogenicity. Measures 9.7 x 4.6 x 4.6 cm. Normal cortical thickness of 1.1 cm. Normal cortical medullary differentiation pattern. No hydronephrosis or renal calculus. Nonspecific trace perinephric fluid. Bladder: Partially distended with volume of 180 mL. Left ureteral jet is not identified. Normal bladder wall thickness is 0.4 cm. Moderate postvoid residual volume of 107 mL. [facility] Interface, Rad In Fu ji Speechq - 05/05/2021 7:57 PM EDT EXAMINATION: US RENAL AND BLADDER HISTORY: ORDERING SYSTEM PROVIDED HISTORY: Obstructive uropathy, TECHNOLOGIST PROVIDED HISTORY: Illness/Other Reason for exam: Obstructive uropathy/patient states renal failure Cancer History: un Surgery, RadiationHistory: un Encounter Type: Subsequent/Follow-up Additional signs and symptoms: no ORDERING SYSTEM PROVIDED DIAGNOSIS CODES: M54.2 Neck pain N17.9 Acute renal failure superimposed on chronic kidney disease, unspecified CKD stage, unspecified acute renal failure type (HCC) N18.9 Acute renal failure superimposed on chronic kidney disease, unspecified CKD stage, unspecified acute renal failure type (HCC) E87.5 Hyperkalemia N39.0 Acute UTI Z86.73 H/O: CVA (cerebrovascular accident) G93.41 Metabolic encephalopathy COMPARISON: 04/06/2021. TECHNIQUE: Ultrasound of the kidneys and bladder. FINDINGS: Right kidney: Normal in size and echogenicity. Measures 9.7 x 4.6 x 5.0 cm. Normal cortical thickness of 1.2 cm. Normal cortical medullary differentiation pattern. No hydronephrosis or renal calculus. Nonspecific small amount of perinephric fluid. Left kidney: Normal in size and echogenicity. Measures 9.7 x 4.6 x 4.6 cm. Normal cortical thickness of 1.1 cm. Normal cortical medullary differentiation pattern. No hydronephrosis or renal calculus. Nonspecific trace perinephric fluid. Bladder: Partially distended with volume of 180 mL. Left ureteral jet is not identified. Normal bladder wall thickness is 0.4 cm. Moderate postvoid residual volume of 107 mL. IMPRESSION: No hydronephrosis or nephrolithiasis. Nonspecific trace perinephric fluid. Moderate postvoid residual volume, [address] Workstation ID: [id number] [facility] Basic metabolic 2000 panelOr dered By: Bryce Alvarez on 05-04-2021 Anion gap [Moles/Vol] 9 mmol/L Low 10 - 2 0 mmol/L [facility] Calcium [Mass/Vol] 9.0 mg/dL 8.4 - 10. 2 mg/dL [facility] Chloride [Moles/Vol] 112 mmol/L High 98 - 10 8 mmol/L [facility] Creatinine [Mass/Vol] 1.56 mg/dL High 0.80 - 1.30 [facility] GFR/1.73 sq M.predicted CKD-EPI (S/P/Bld) [Vol rate/Area] 44 Low >=60 mL/min/1.73 m2 [facility] Glucose [Mass/Vol] 70 mg/dL 65 - 99 mg/dL [facility] Comment on above: [id number] CALLED ATTENT ION RESULT ON 05/04/2021 @ 0620 TO AND READ BACK BY [id number] in [employer] HCO3 [Moles/Vol] 25 mmol/L 21 - 32 mmol/L [facility] Interpretation and review of laboratory results Abnormal [facility] Potassium [Moles/Vol] 4.5 mmol/L 3.5 - 5.1 mmol/L [facility] Sodium [Moles/Vol] 141 mmol/L 135 - 145 mmol/L [facility] Urea nitrogen [Mass/Vol] 19 mg/dL 8 - 25 mg/dL [facility] Urea nitrogen/Creatinine [Mass ratio] 12.2 mg/mg [facility] The eGFR should be u sed for monitoring renal function only and not for medication dosing. [facility] CBC WITH AUTO DIFFERENTIALOr dered By: Bryce Alvarez on 05-04-2021 Basophils (Bld) [#/Vol] 0.07 10*3/uL [facility] Basophils/100 WBC (Bld) 1.0 % [facility] Eosinophils (Bld) [#/Vol] 0.35 10*3/uL [facility] Eosinophils/100 WBC (Bld) 5.0 % [facility] Erythrocyte distribution width (RBC) [Entitic vol] 14.3 % 11.6 - 14.8 % [facility] Hematocrit (Bld) [Volume fraction] 27.9 % Low 41.0 - 53.0 % [facility] Hemoglobin (Bld) [Mass/Vol] 8.9 g/dL Low 13.5 - 17.5 g/dL [facility] Immature granulocytes (Bld) [#/Vol] 0.10 10*3/uL [facility] Immature granulocytes/100 WBC (Bld) 1.40 % [facility] Comment on above: The IG parameter is the percentage of metamyelocytes, myelocytes and promyelocytes. An immature granulocyte count (IG) of 1% or more suggests the possibility of infection, an IG count of 3% is very likely related to an infection. Interpretation and review of laboratory results Abnormal [facility] Lymphocytes (Bld) [#/Vol] 2.57 10*3/uL [facility] Lymphocytes/100 WBC (Bld) 36.7 % [facility] MCH (RBC) [Entitic mass] 33.6 pg 26.0 - 34.0 pg [facility] MCHC (RBC) [Mass/Vol] 31.9 g/dL 31.0 - 37.0 g/dL [facility] MCV (RBC) [Entitic vol] 105.3 fL High 80.0 - 100.0 fL [facility] Monocytes (Bld) [#/Vol] 0.92 10*3/uL High [facility] Monocytes/100 WBC (Bld) 13.1 % [facility] Neutrophils (Bld) [#/Vol] 2.99 10*3/uL [facility] Neutrophils/100 WBC (Bld) 42.8 % [facility] Nucleated RBC (Bld) [#/Vol] 0.00 10*3/uL [facility] Nucleated RBC/100 WBC (Bld) [Ratio] 0.0 % [facility] Platelet mean volume (Bld) [Entitic vol] 10.9 fL 9.4 - 12.4 fL [facility] Platelets (Bld) [#/Vol] 276 10*3/uL [facility] RBC (Bld) [#/Vol] 2.65 10*6/uL [facility] WBC (Bld) [#/Vol] 7.00 10*3/uL [facility] Glucose (Bld) [Mass/Vol]Orde red By: Bryce Alvarez on 05-04-2021 Glucose [Mass/Vol] 180 mg/dL High 65 - 99 mg/dL [facility] Interpretation and review of laboratory results Abnormal [facility] Glucose [Mass/Vol] 121 mg/dL High 65 - 99 mg/dL [facility] Interpretation and review of laboratory results Abnormal [facility] Glucose [Mass/Vol] 76 mg/dL 65 - 99 mg/dL [facility] Interpretation and review of laboratory results Normal [facility] Basic metabolic 2000 panelOr dered By: Bryce Alvarez on 05-03-2021 Anion gap [Moles/Vol] 15 mmol/L 10 - 2 0 mmol/L [facility] Calcium [Mass/Vol] 9.0 mg/dL 8.4 - 10. 2 mg/dL [facility] Chloride [Moles/Vol] 110 mmol/L High 98 - 10 8 mmol/L [facility] Creatinine [Mass/Vol] 1.56 mg/dL High 0.80 - 1.30 [facility] GFR/1.73 sq M.predicted CKD-EPI (S/P/Bld) [Vol rate/Area] 44 Low >=60 mL/min/1.73 m2 [facility] Glucose [Mass/Vol] 76 mg/dL 65 - 99 mg/dL [facility] HCO3 [Moles/Vol] 21 mmol/L 21 - 32 mmol/L [facility] Interpretation and review of laboratory results Abnormal [facility] Potassium [Moles/Vol] 4.7 mmol/L 3.5 - 5.1 mmol/L [facility] Sodium [Moles/Vol] 141 mmol/L 135 - 145 mmol/L [facility] Urea nitrogen [Mass/Vol] 19 mg/dL 8 - 25 mg/dL [facility] Urea nitrogen/Creatinine [Mass ratio] 12.2 mg/mg [facility] The eGFR should be u sed for monitoring renal function only and not for medication dosing. [facility] Creatinine [Mass/Vol]Ordered By: Melissa Collins on 05-03-2021 GFR/1.73 sq M.predicted CKD-EPI (S/P/Bld) [Vol rate/Area] 44 Low >=60 mL/min/1.73 m2 [facility] Interpretation and review of laboratory results Abnormal [facility] The eGFR should be u sed for monitoring renal function only and not for medication dosing. [facility] Creatinine, serumOrdered By: Melissa Collins on 05-03-2021 Creatinine [Mass/Vol] 1.56 mg/dL High 0.80 - 1.30 [facility] Glucose (Bld) [Mass/Vol]Orde red By: Bryce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 urinalysis may also be positive due to hemoglobinuria and myoglobinuria and if red blood cells are present they are quantified by microscopic examination. [facility] Bilirubin Ql (U) Negative Negative [facility] Hemoglobin Auto test strip Ql (U) Negative Negative [facility] Hyaline casts Auto (Urine sed) [#/Area] 0-2 0 - 2 /lpf [facility] Interpretation and review of laboratory results Abnormal [facility] Mucus Auto (Urine sed) [#/Area] Rare None Seen, Rare /lpf [facility] Nitrite Auto test strip Ql (U) Negative Negative [facility] Protein (U) [Mass/Vol] Negative Negat dequan mg/dL [facility] RBC Auto (Urine sed) [#/Area] 1 [facility] Urobilinogen (U) [Mass/Vol] mg/dL <2.0 mg/dL [facility] WBC Auto (Urine sed) [#/Area] 21 High [facility] Yeast.budding Computer assisted (U) [#/Area] Few Abnormal None Seen /hpf [facility] Yeast.hyphae Computer assisted (U) [#/Area] Rare Abnormal None Seen /hpf [facility] Microscopic examinat ion is performed on all urinalysis samples and only positive findings are reported. The test for blood on the chemical analytic portion of urinalysis may also be positive due to hemoglobinuria and myoglobinuria and if red blood cells are present they are quantified by microscopic examination. [facility] Basic metabolic 1998 panelOr dered By: Lev Desai on 04-27-2021 Anion gap [Moles/Vol] 13 mmol/L 10 - 2 0 mmol/L [facility] Chloride [Moles/Vol] 113 mmol/L High 98 - 10 8 mmol/L [facility] Creatinine [Mass/Vol] 2.71 mg/dL High 0.80 - 1.30 [facility] GFR/1.73 sq M.predicted CKD-EPI (S/P/Bld) [Vol rate/Area] 22 Low >=60 mL/min/1.73 m2 [facility] Glucose [Mass/Vol] 118 mg/dL High 65 - 99 mg/dL [facility] HCO3 [Moles/Vol] 17 mmol/L Low 21 - 32 mmol/L [facility] Interpretation and review of laboratory results Abnormal [facility] Potassium [Moles/Vol] 7.5 mmol/L Critically high 3.5 - 5.1 mmol/L [facility] Sodium [Moles/Vol] 135 mmol/L 135 - 145 mmol/L [facility] Urea nitrogen [Mass/Vol] 47 mg/dL High 8 - 25 mg/dL [facility] Urea nitrogen/Creatinine [Mass ratio] 17.3 mg/mg [facility] The eGFR should be u sed for monitoring renal function only and not for medication dosing. [facility] Basic metabolic 2000 panelOr dered By: Geraldine Reilly on 04-27-2021 Anion gap [Moles/Vol] 10 mmol/L 10 - 2 0 mmol/L [facility] Calcium [Mass/Vol] 9.5 mg/dL 8.4 - 10. 2 mg/dL [facility] Chloride [Moles/Vol] 113 mmol/L High 98 - 10 8 mmol/L [facility] Creatinine [Mass/Vol] 2.55 mg/dL High 0.80 - 1.30 [facility] GFR/1.73 sq M.predicted CKD-EPI (S/P/Bld) [Vol rate/Area] 24 Low >=60 mL/min/1.73 m2 [facility] Glucose [Mass/Vol] 36 mg/dL Critically low 65 - 99 mg/dL [facility] HCO3 [Moles/Vol] 21 mmol/L 21 - 32 mmol/L [facility] Interpretation and review of laboratory results Abnormal [facility] Potassium [Moles/Vol] 5.4 mmol/L High 3.5 - 5.1 mmol/L [facility] Sodium [Moles/Vol] 139 mmol/L 135 - 145 mmol/L [facility] Urea nitrogen [Mass/Vol] 50 mg/dL High 8 - 25 mg/dL [facility] Urea nitrogen/Creatinine [Mass ratio] 19.6 mg/mg [facility] The eGFR should be u sed for monitoring renal function only and not for medication dosing. [facility] Beta hydroxybutyrate [Moles/ Vol]Ordered By: Geraldine Reilly on 04-27-2021 Interpretation and review of laboratory results Normal [facility] Beta-HydroxybutyrateOrdered By: Geraldine Reilly on 04-27-2021 Beta hydroxybutyrate [Moles/Vol] <0.1 0.0 - 0.3 mmol/L [facility] CBC WITH AUTO DIFFERENTIALOr dered By: Lev Desai on 04-27-2021 Basophils (Bld) [#/Vol] 0.05 10*3/uL [facility] Basophils/100 WBC (Bld) 0.4 % [facility] Eosinophils (Bld) [#/Vol] 0.37 10*3/uL [facility] Eosinophils/100 WBC (Bld) 3.3 % [facility] Erythrocyte distribution width (RBC) [Entitic vol] 14.6 % 11.6 - 14.8 % [facility] Hematocrit (Bld) [Volume fraction] 28.5 % Low 41.0 - 53.0 % [facility] Hemoglobin (Bld) [Mass/Vol] 9.1 g/dL Low 13.5 - 17.5 g/dL [facility] Immature granulocytes (Bld) [#/Vol] 0.08 10*3/uL [facility] Immature granulocytes/100 WBC (Bld) 0.70 % [facility] Comment on above: The IG parameter is the percentage of metamyelocytes, myelocytes and promyelocytes. An immature granulocyte count (IG) of 1% or more suggests the possibility of infection, an IG count of 3% is very likely related to an infection. Interpretation and review of laboratory results Abnormal [facility] Lymphocytes (Bld) [#/Vol] 1.89 10*3/uL [facility] Lymphocytes/100 WBC (Bld) 16.9 % [facility] MCH (RBC) [Entitic mass] 33.8 pg 26.0 - 34.0 pg [facility] MCHC (RBC) [Mass/Vol] 31.9 g/dL 31.0 - 37.0 g/dL [facility] MCV (RBC) [Entitic vol] 105.9 fL High 80.0 - 100.0 fL [facility] Monocytes (Bld) [#/Vol] 1.28 10*3/uL High [facility] Monocytes/100 WBC (Bld) 11.4 % [facility] Neutrophils (Bld) [#/Vol] 7.54 10*3/uL High [facility] Neutrophils/100 WBC (Bld) 67.3 % [facility] Nucleated RBC (Bld) [#/Vol] 0.00 10*3/uL [facility] Nucleated RBC/100 WBC (Bld) [Ratio] 0.0 % [facility] Platelet mean volume (Bld) [Entitic vol] 11.4 fL 9.4 - 12.4 fL [facility] Platelets (Bld) [#/Vol] 353 10*3/uL [facility] RBC (Bld) [#/Vol] 2.69 10*6/uL Low [facility] ealth WBC (Bld) [#/Vol] 11.21 10*3/uL High [facility] CK [Catalytic activity/Vol]O rdered By: Geraldine Reilly on 04-27-2021 Interpretation and review of laboratory results Abnormal [facility] CPK NO MBOrdered By: Jozef Reilly on 04-27-2021 CK [Catalytic activity/Vol] 26 U/L Low 60 - 225 U/L [facility] CRITICAL CAREOrdered By: Ildefonso Desai on 04-27-2021 Lev Desai MD 04/27/2021 5:33 PM Critical Care Performed by: Lev Desai MD Authorized by: Lev Desai MD Total critical care time: 45 minutes Critical care was necessary to treat or prevent imminent or life-threatening deterioration of the following conditions: metabolic crisis and renal failure. Critical care was time spent personally by me on the following activities: development of treatment plan with patient or surrogate, evaluation of patient's response to treatment, examination of patient, obtaining history from patient or surrogate, ordering and performing treatments and interventions, ordering and review of laboratory studies, ordering and review of radiographic studies, pulse oximetry, re-evaluation of patient's condition and review of old charts. [facility] ECG 12-LEADOrdered By: Lev Desai on 04-27-2021 Atrial Rate 58 BPM [facility] P [place] 65 degrees [facility] P-R Interval 182 ms [facility] Q-T Interval 398 ms [facility] QRS Duration 84 ms [facility] QTC Calculation (Bezet) 390 ms [facility] R [place] 67 degrees [facility] T [place] 77 degrees [facility] Ventricular Rate 58 BPM [facility] Sinus bradycardia Otherwise normal ECG ECG Cart Interpretation see physician note for interpretation. Confirmed by Marita Cheng ([id number]) on 04/27/2021 5:26:31 PM [facility] Lev Desai MD 04/27/2021 5:33 PM ECG 12 Lead Date/Time: 04/27/2021 3:16 PM Performed by: Lev Desai MD Authorized by: Lev Desai MD Interpreted by ED attending physician Comparison: not compared with previous ECG Rhythm: sinus rhythm and sinus bradycardia BPM: 58 Conduction: conduction normal ST Segments: ST segments normal T Waves: T waves normal MT Interval: 182 QRS Interval: 84 QT Interval: 390 Clinical impression: sinus bradycardia [facility] EKGOrdered By: Provider Syst em on 04-27-2021 Ordered by an unspecified provider. [facility] Glucose (Bld) [Mass/Vol]Orde red By: Geraldine Reilly on 04-27-2021 Glucose [Mass/Vol] 135 mg/dL High 65 - 99 mg/dL [facility] Interpretation and review of laboratory results Abnormal [facility] Glucose (Bld) [Mass/Vol]Orde red By: Lev Desai on 04-27-2021 Glucose [Mass/Vol] 50 mg/dL Low 65 - 99 mg/dL [facility] Interpretation and review of laboratory results Abnormal [facility] Lactate [Moles/Vol]Ordered B y: Geraldine Reilly on 04-27-2021 Interpretation and review of laboratory results Abnormal [facility] Lactic Acid, PlasmaOrdered B y: Geraldine Reilly on 04-27-2021 Lactate [Moles/Vol] 2.1 mmol/L High 0.6 - 2. 0 mmol/L [facility] Lavender TopOrdered By: Isaac Desai on 04-27-2021 Extra Tube Hold for add-ons. [facility] Comment on above: Auto resulted. [facility] Magnesium LevelOrdered By: Allie Reilly on 04-27-2021 Magnesium [Mass/Vol] 1.5 mg/dL Low 1.6 - 2 .4 mg/dL [facility] Magnesium [Mass/Vol]Ordered By: Geraldine Reilly on 04-27-2021 Interpretation and review of laboratory results Abnormal [facility] Obtain venous blood gases an d performOrdered By: Lev Desai on 04-27-2021 [facility] POC Venous Blood Gas Panel-P ulmOrdered By: Lev Desai on 04-27-2021 Base excess Calc (BldV) [Moles/Vol] -8.1000 mmol/L Low [facility] Breath rate setting Ventilator synchronized intermittent mandatory 0 [facility] CO2 (BldV) [Partial pressure] 39.2 mm[Hg] Low [facility] HCO3 (Bld) [Moles/Vol] 18.1 mmol/L Low 24.0 - 28.0 mmol/L [facility] Hematocrit (BldA) [Volume fraction] 29.2 % Low 41.0 - 53.0 % [facility] Hemoglobin (Bld) [Mass/Vol] 9.5 g/dL Low 13.5 - 17.5 g/dL [facility] Inhaled oxygen concentration 21 % [facility] Interpretation and review of laboratory results Abnormal [facility] Oxygen (BldV) [Partial pressure] 22 mm[Hg] Low [facility] Comment on above: Caution: pO2 referen ce ranges for some specimen types are lower than the measuring range of the instrument. Oxygen saturation in Venous blood 29.5 % Low 40.0 - 70.0 % [facility] pH (BldV) 7.27 [pH] Low [facility] Specimen source Nom (Unsp spec) Not specified [facility] Tidal volume setting Ventilator 0 [facility] Phosphate [Mass/Vol]Ordered By: Geraldine Reilly on 04-27-2021 Interpretation and review of laboratory results Abnormal [facility] PhosphorusOrdered By: Sheldon Reilly on 04-27-2021 Phosphate [Mass/Vol] 5.7 mg/dL High 2.3 - 3 .7 mg/dL [facility] Reflex Lactic Acid, PlasmaOr dered By: Geraldine Reilly on 04-27-2021 Interpretation and review of laboratory results Normal [facility] Lactate [Moles/Vol] 1.3 mmol/L 0.6 - 2. 0 mmol/L [facility] SARS-CoV-2 (COVID-19) RdRp g olivia BANDAR+probe Ql (Resp)Ordered By: Lev Desai on 04-27-2021 Interpretation and review of laboratory results Normal [facility] SARS-CoV-2 (COVID-19) RNA BANDAR+probe Ql (Resp) Not detected Not Detected [facility] This test was perfor med under the FDA's Emergency Use Authorization (EUA). Testing was performed using the Merlin Ashley SARS-CoV-2 RT-PCR & Influenza A/B Nucleic Acid Test on the Ashley Edith System. This test has not been approved for use in asymptomatic patients and its performance in this patient population has not been evaluated. Negative results do not rule out the presence of SARS-CoV-2, influenza A, and/or influenza B. Fact sheets for the EUA can be found at the following links: For Healthcare Providers: https://www.fda.gov/medi a/368931/download For Patients: https://www.fda.gov/medi a/609210/download [facility] URINALYSISOrdered By: Lev Desai on 04-27-2021 Bacteria Auto Ql (U) Rare Abnormal None Se en /hpf [facility] Clarity Refractometry automated (U) Cloudy Abnormal Clear [facility] Color (U) Yellow Colorless, Yellow [facility] Glucose Auto test strip (U) [Mass/Vol] 50 Abnormal Negative mg/dL [facility] Ketones (U) [Mass/Vol] Negative Negat dequan mg/dL [facility] Leukocyte esterase Auto test strip Ql (U) Large Abnormal Negative [facility] pH (U) 5.5 [pH] [facility] Specific gravity (U) [Rel density] 1.015 [facility] UrinalysisOrdered By: Lev Desai on 04-27-2021 Bilirubin Ql (U) Negative Negative [facility] th Epithelial cells.squamous Auto (Urine sed) [#/Area] <1 [facility] Hemoglobin Auto test strip Ql (U) Negative Negative [facility] Hyaline casts Auto (Urine sed) [#/Area] 6-10 Abnormal 0 - 2 /lpf [facility] Interpretation and review of laboratory results Abnormal [facility] Leukocyte clumps Auto (Urine sed) [#/Area] Rare Abnormal None Seen /hpf [facility] Mucus Auto (Urine sed) [#/Area] Rare None Seen, Rare /lpf [facility] Nitrite Auto test strip Ql (U) Negative Negative [facility] Protein (U) [Mass/Vol] Negative Negat dequan mg/dL [facility] RBC Auto (Urine sed) [#/Area] 4 High [facility] Urobilinogen (U) [Mass/Vol] mg/dL <2.0 mg/dL [facility] WBC Auto (Urine sed) [#/Area] 102 High [facility] Yeast.budding Computer assisted (U) [#/Area] Few Abnormal None Seen /hpf [facility] Microscopic examinat ion is performed on all urinalysis samples and only positive findings are reported. The test for blood on the chemical analytic portion of urinalysis may also be positive due to hemoglobinuria and myoglobinuria and if red blood cells are present they are quantified by microscopic examination. [facility] XR CHEST AP/PA AND LATon Granulocytes/100 WBC (Bld) Changes of COPD and remote granulomatous disease. No acute process identified. JAR/cdr Workstation ID: [id number] [facility] EXAMINATION: XR CHES T AP/PA AND LAT 01/11/2021 12:29 pm HISTORY: ORDERING SYSTEM PROVIDED HISTORY: wt loss, smoker, TECHNOLOGIST PROVIDED HISTORY: Illness/Other Reason for exam: Tobacco use. Weight loss Cancer History: un Surgery, RadiationHistory: un Encounter Type: Initial Additional signs and symptoms: HX HTN ORDERING SYSTEM PROVIDED DIAGNOSIS CODES: F17.200 Tobacco use disorder R63.4 Loss of weight COMPARISON: Chest x-ray 06/10/2020 and 04/14/2020. TECHNIQUE: Frontal and lateral views of the chest on 3 films. FINDINGS: The lungs are hyperinflated with flattening of the diaphragms consistent with COPD. Lungs are expanded with no airspace consolidation, pneumothorax or sizable pleural effusion. A few small calcified lung nodules again noted consistent with remote granulomatous disease. Cardiac silhouette is within normal limits. No mediastinal widening. No obvious acute osseous abnormality. [facility], Rad In Fu ji Speechq - 01/11/2021 3:54 PM EDT EXAMINATION: XR CHEST AP/PA AND LAT 01/11/2021 12:29 pm HISTORY: ORDERING SYSTEM PROVIDED HISTORY: wt loss, smoker, TECHNOLOGIST PROVIDED HISTORY: Illness/Other Reason for exam: Tobacco use. Weight loss Cancer History: un Surgery, RadiationHistory: un Encounter Type: Initial Additional signs and symptoms: HX HTN ORDERING SYSTEM PROVIDED DIAGNOSIS CODES: F17.200 Tobacco use disorder R63.4 Loss of weight COMPARISON: Chest x-ray 06/10/2020 and 04/14/2020. TECHNIQUE: Frontal and lateral views of the chest on 3 films. FINDINGS: The lungs are hyperinflated with flattening of the diaphragms consistent with COPD. Lungs are expanded with no airspace consolidation, pneumothorax or sizable pleural effusion. A few small calcified lung nodules again noted consistent with remote granulomatous disease. Cardiac silhouette is within normal limits. No mediastinal widening. No obvious acute osseous abnormality. IMPRESSION: Changes of COPD and remote granulomatous disease. No acute process identified. [employer]/cdr Workstation ID: [id number] [facility] Coronavirus 2019 RNA by PCR, Symptomaticon 09-10-2020 EMPLOYED IN HEALTHCARE No [facility] Internal Medicine Work Phone: FIRST COVID NASAL SWAB TEST? No [facility] Internal Medicine Work Phone: ICU? No [facility] Internal Medicine Work Phone: Patient was hospitalized because of this condition No [facility] Internal Medicine Work Phone: RESIDENT IN CONGREGATE CARE SETTING? No [facility] Internal Medicine Work Phone: SYMPTOMATIC DEFINED BY CDC Yes [facility] Internal Medicine Work Phone: When did you start to experience these symptoms [Date and time] [PhenX] [id number] [facility] Internal Medicine Work Phone: Coronavirus 2019 RNA by PCR, Symptomatic NOT DETECTED See Below [facility] Medicine Work Phone: Comment on above: SOURCE: Nasal, Nasop haryngealReference Range: Not Detected.This assay is designed to detect the N, ORF1ab and/or S genes of SARS-CoV-2 via nucleic acid amplification. A Negative (NOT DETECTED) result does not preclude 2019-nCoV infection since the adequacy of sample collection and/or low viral burden may result in presence of viral nucleic acids below the clinical sensitivity of this test method. Negative (NOT DETECTED) result should not be used as the sole basis for treatment or other patient management decisions. Rather negative results should be combined with clinical observations, patient history, and epidemiological information to make patient management decisions.Fact sheet for providers: https://www.fda.gov/media/907593/downloadFact sheet for patients: https://www.fda.gov/media/381135/downloadThis test has received FDA Emergency Use Authorization (EUA) and has been verified by [facility] ([facility]). This test is only authorized for the duration of time that circumstances exist to justify the authorization of the emergency use of in vitro diagnostic tests for the detection of SARS-CoV-2 virus and/or diagnosis of COVID-19 infection under section 564(b)(1) of the Act, 21 U.S.C. 360bbb-3(b)(1), unless the authorization is terminated or revoked sooner. [facility] is certified under CLIA-88 as qualified to perform high complexity testing. Testing is performed in the [facility] laboratories located at [address] [place] [address]. Mammography Diagnostic Bilat grace 08-31-[address] than left proliferated retroareolar fibroglandular markings. The appearance is consistent with gynecomastia. BIRADS: BIRADS - CATEGORY 2 Benign, no evidence of malignancy. OVERALL ASSESSMENT - BENIGN These results were discussed with the patient at the time of study completion. A letter of notification will be sent to the patient regarding the results. [employer] Workstation ID: [id number] [facility] EXAMINATION: MM DIAGNOSTIC BILATERAL HISTORY: Nipple pain. COMPARISON: None. FINDINGS: Bilaterally there appear to be proliferated fibroglandular tissues behind the nipple. There are no signs of high density discrete or irregular mass, or suspicious calcification. Changes are more prominent on the right. [facility] Interface, Rad In Fu ji Speechq - 08/31/2020 4:48 PM EST EXAMINATION: MM DIAGNOSTIC BILATERAL HISTORY: Nipple pain. COMPARISON: None. FINDINGS: Bilaterally there appear to be proliferated fibroglandular tissues behind the nipple. There are no signs of high density discrete or irregular mass, or suspicious calcification. Changes are more prominent on the right. IMPRESSION: Bilateral right greater than left proliferated retroareolar fibroglandular markings. The appearance is consistent with gynecomastia. BIRADS: BIRADS - CATEGORY 2 Benign, no evidence of malignancy. OVERALL ASSESSMENT - BENIGN These results were discussed with the patient at the time of study completion. A letter of notification will be sent to the patient regarding the results. [employer] Workstation ID: [id number] [facility] CT COMPARISON IMPORTon 06-10 This order has been auto-finalized and does not contain a result. [facility] This order has been auto-finalized and does not contain a result. [facility] This order has been auto-finalized and does not contain a result. [facility] POC Glucoseon 06-10-2020 Glucose [Mass/Vol] 259 mg/dL High 65 - 99 mg/dL [facility] Interpretation and review of laboratory results Abnormal [facility] Glucose [Mass/Vol] 259 mg/dL Abnormal 65 - 99 mg/dL [facility] Interpretation and review of laboratory results Abnormal [facility] XR COMPARISON IMPORTon 06-10 This order has been auto-finalized and does not contain a result. [facility] Otheron 04-28-2020 Stress Nuc Stress EF 73 % [facility] Patient Info Name: STEVO ELIZALDE Age: 70 years : 1950 Gender: Male Ht: 170 cm Wt: 67 kg BSA: 1.78 m2 HR: 76 bpm BP: 155 / 85 mmHg Heart Rhythm: Sinus Rhythm Exam Date: 04/28/2020 10:00 AM Patient Status: Outpatient Ordering Physician: AQUILES HERRERA Bowl Topper: Joelle Holbrook, RT(N), AIRLINE SECURITY REPRESENTATIVE, [facility] Exam Type: NM MYOCARDIAL PERFUSION MULTI SPECT Study Info Nuclear Physician: Juanis Dumont MD, RPVI Referring Physician: DR. MAE; [id number] Primary Nurse: Felicitas Cline RN Supervising Stress Physician: Silvia Joshua MD BMI: 0.23 kg/m2 Summary 1. Normal stress pharmacologic nuclear study. 2. Stress and rest SPECT images are normal. No evidence of ischemia or infarct. 3. Overall left ventricular systolic function was normal without regional wall motion abnormalities. Gated SPECT imaging reveals normal myocardial wall thickening. Post stress left ventricular ejection fraction is normal, 73 %. Resting left ventricular ejection fraction is normal, 57 %. Left ventricular cavity size is normal. 4. Normal ECG portion of pharmacologic stress test. History/Risk Factors Hypertension: Yes Dyslipidemia: Yes Diabetes Mellitus: Yes COPD: On Meds Tobacco Use: Current - Every Day Cerebrovascular Disease: Yes Family History: Coronary Artery Disease Stress ECG Details Protocol: LEXISCAN Rest HR: 76 bpm Peak HR: 97 bpm Rest Sys BP: 155 mmHg Peak Sys BP: 156 mmHg Max Pred HR: 149 bpm % Max Pred HR: 65 % Target HR: 127 bpm Max RPP: 15,132 bpm*mmHg BP Response: Normal blood pressure response Termination Reason: PER PROTOCOLS Cardiac Symptoms: None Total Time: 5 min : 0 sec Rest Diehl BP: 85 mmHg Peak Diehl BP: 83 mmHg Total Dose: 0.4 mg Resting ECG SR. Normal sinus rhythm - normal ECG. Stress ECG No abnormal ST/T wave changes with exercise. Arrhythmias No arrhythmias were observed during the examination. ------ Stage: PRETEST SUPINE Duration (min): 21 min : 22 sec HR (bpm): 77 SBP (mmHg): 155 DBP (mmHg): 85 ------ Stage: LEXISCAN 1 MIN Duration (min): 1 min : 0 sec HR (bpm): 85 SBP (mmHg): --- DBP (mmHg): --- ------ Stage: LEXISCAN 2 MIN Duration (min): 1 min : 0 sec HR (bpm): 96 SBP (mmHg): 156 DBP (mmHg): 83 ------ Stage: LEXISCAN 3 MIN Duration (min): 1 min : 0 sec HR (bpm): 95 SBP (mmHg): 156 DBP (mmHg): 83 ------ Stage: LEXISCAN 4 MIN Duration (min): 1 min : 0 sec HR (bpm): 93 SBP (mmHg): --- DBP (mmHg): --- ------ Stage: LEXISCAN 5 MIN Duration (min): 1 min : 0 sec HR (bpm): 93 SBP (mmHg): --- DBP (mmHg): --- ------ Stage: RECOVERY Duration (min): 4 min : 35 sec HR (bpm): 88 SBP (mmHg): 154 DBP (mmHg): 85 Exercise Tolerance Unable to exercise due to difficulty walking. Radiopharmaceutical: Tc-99m Tetrofosmin Administration Site: IV - right hand Administered By: Joelle Holbrook RT(N), FAINA, [facility] Camera Used: [employer] D-SPECT Radiopharmaceutical: Tc-99m Tetrofosmin Administration Site: IV - right hand Administered By: Joelle Holbrook RT(N), FAINA, [facility] Camera Used: [employer] D-SPECT Image Protocol Protocol: Stress/Rest 1 Day Rest Radiopharmaceutical Dose: 23.0 mCi Imaging Date & Time: 04/28/2020 12:45 AM Patient Position: supine Stress Radiopharmaceutical Dose: 7.5 mCi Imaging Date & Time: 04/28/2020 12:00 AM Patient Position: upright and supine Injection to Imaging Time: 15 min Injection to Imaging Time: 60 min Total Radiation Dose: 8 mSv Procedure(s): Gated SPECT images acquired upright and gated SPECT images acquired supine post Tetrofosmin injection at peak stress. Resting images were acquired supine post Tetrofosmin injection. [facility] [employer] application was utilized for processing and interpretation. SPECT Results Perfusion Findings Stress and rest SPECT images are normal. No evidence of ischemia or infarct. Study Limitations: GI Activity Summed Difference Score: 0 Summed Stress Score: 0 Summed Rest Score: 0 Perfusion Quantitative Results Stress Extent Global Stress Extent 1 % Rest Extent Global Rest Extent: 0 % Ischemia Extent Global Ischemia Extent: 1 % Functional Results Name Value Normal Stress Stress LV Ejection Fraction 73 % 55-70 Stress LV End Diastolic Volume Index 38.80 ml/m2 Stress LV End Systolic Volume Index 9.00 ml/m2 Nuclear Stress Myocardial Mass 111.00 g Stress LV End Diastolic Volume 56.00 ml Stress LV End Systolic Volume 15.00 ml Transient Ischemic Dilatation 0.73 Functional Results Name Value Normal Rest Resting LV Ejection Fraction 57 % 55-70 Resting LV End Diastolic Volume Index 45.00 ml/m2 Resting LV End Systolic Volume Index 14.10 ml/m2 Resting LV End Diastolic Volume 72.00 ml Resting LV End Systolic Volume 31.00 ml Nuclear Rest Myocardial Mass 118.00 g Functional Findings Overall left ventricular systolic function was normal without regional wall motion abnormalities. Gated SPECT imaging reveals normal myocardial wall thickening. Post stress left ventricular ejection fraction is normal, 73 %. Resting left ventricular ejection fraction is normal, 57 %. Left ventricular cavity size is normal. Report Signatures Amended by Juanis Dumont MD on 04/28/2020 02:14 PM MPI SPECT Finalized by Juanis Dumont MD on 04/28/2020 02:12 PM Stress Finalized by Juanis Dumont MD on 04/28/2020 02:12 PM [facility] Interface, Rad In Heartlab [employer] - 04/28/2020 2:29 PM EDT Patient Info Name: STEVO ELIZALDE Age: 70 years : 1950 Gender: Male Ht: 170 cm Wt: 67 kg BSA: 1.78 m2 HR: 76 bpm BP: 155 / 85 mmHg Heart Rhythm: Sinus Rhythm Exam Date: 04/28/2020 10:00 AM Patient Status: Outpatient Ordering Physician: AQUILES HERRERA Bowl Topper: Joelle Holbrook, RT(N), AIRLINE SECURITY REPRESENTATIVE, RCS Exam Type: NM MYOCARDIAL PERFUSION MULTI SPECT Study Info Nuclear Physician: Juanis Dumont MD, RPVI Referring Physician: DR. MAE; [id number] Primary Nurse: Felicitas Cline RN Supervising Stress Physician: Silvia Joshua MD BMI: 0.23 kg/m2 Summary 1. Normal stress pharmacologic nuclear study. 2. Stress and rest SPECT images are normal. No evidence of ischemia or infarct. 3. Overall left ventricular systolic function was normal without regional wall motion abnormalities. Gated SPECT imaging reveals normal myocardial wall thickening. Post stress left ventricular ejection fraction is normal, 73 %. Resting left ventricular ejection fraction is normal, 57 %. Left ventricular cavity size is normal. 4. Normal ECG portion of pharmacologic stress test. History/Risk Factors Hypertension: Yes Dyslipidemia: Yes Diabetes Mellitus: Yes COPD: On Meds Tobacco Use: Current - Every Day Cerebrovascular Disease: Yes Family History: Coronary Artery Disease Stress ECG Details Protocol: LEXISCAN Rest HR: 76 bpm Peak HR: 97 bpm Rest Sys BP: 155 mmHg Peak Sys BP: 156 mmHg Max Pred HR: 149 bpm % Max Pred HR: 65 % Target HR: 127 bpm Max RPP: 15,132 bpm*mmHg BP Response: Normal blood pressure response Termination Reason: PER PROTOCOLS Cardiac Symptoms: None Total Time: 5 min : 0 sec Rest Diehl BP: 85 mmHg Peak Diehl BP: 83 mmHg Total Dose: 0.4 mg Resting ECG SR. Normal sinus rhythm - normal ECG. Stress ECG No abnormal ST/T wave changes with exercise. Arrhythmias No arrhythmias were observed during the examination. ------ Stage: PRETEST SUPINE Duration (min): 21 min : 22 sec HR (bpm): 77 SBP (mmHg): 155 DBP (mmHg): 85 ------ Stage: LEXISCAN 1 MIN Duration (min): 1 min : 0 sec HR (bpm): 85 SBP (mmHg): --- DBP (mmHg): --- ------ Stage: LEXISCAN 2 MIN Duration (min): 1 min : 0 sec HR (bpm): 96 SBP (mmHg): 156 DBP (mmHg): 83 ------ Stage: LEXISCAN 3 MIN Duration (min): 1 min : 0 sec HR (bpm): 95 SBP (mmHg): 156 DBP (mmHg): 83 ------ Stage: LEXISCAN 4 MIN Duration (min): 1 min : 0 sec HR (bpm): 93 SBP (mmHg): --- DBP (mmHg): --- ------ Stage: LEXISCAN 5 MIN Duration (min): 1 min : 0 sec HR (bpm): 93 SBP (mmHg): --- DBP (mmHg): --- ------ Stage: RECOVERY Duration (min): 4 min : 35 sec HR (bpm): 88 SBP (mmHg): 154 DBP (mmHg): 85 Exercise Tolerance Unable to exercise due to difficulty walking. Radiopharmaceutical: Tc-99m Tetrofosmin Administration Site: IV - right hand Administered By: Joelle Holbrook RT(N), FAINA, RCS Camera Used: Adreima D-SPECT Radiopharmaceutical: Tc-99m Tetrofosmin Administration Site: IV - right hand Administered By: Joelle Holbrook RT(N), FAINA, RCS Camera Used: Adreima D-SPECT Image Protocol Protocol: Stress/Rest 1 Day Rest Radiopharmaceutical Dose: 23.0 mCi Imaging Date & Time: 04/28/2020 12:45 AM Patient Position: supine Stress Radiopharmaceutical Dose: 7.5 mCi Imaging Date & Time: 04/28/2020 12:00 AM Patient Position: upright and supine Injection to Imaging Time: 15 min Injection to Imaging Time: 60 min Total Radiation Dose: 8 mSv Procedure(s): Gated SPECT images acquired upright and gated SPECT images acquired supine post Tetrofosmin injection at peak stress. Resting images were acquired supine post Tetrofosmin injection. [facility] QGS/QPS application was utilized for processing and interpretation. SPECT Results Perfusion Findings Stress and rest SPECT images are normal. No evidence of ischemia or infarct. Study Limitations: GI Activity Summed Difference Score: 0 Summed Stress Score: 0 Summed Rest Score: 0 Perfusion Quantitative Results Stress Extent Global Stress Extent 1 % Rest Extent Global Rest Extent: 0 % Ischemia Extent Global Ischemia Extent: 1 % Functional Results Name Value Normal Stress Stress LV Ejection Fraction 73 % 55-70 Stress LV End Diastolic Volume Index 38.80 ml/m2 Stress LV End Systolic Volume Index 9.00 ml/m2 Nuclear Stress Myocardial Mass 111.00 g Stress LV End Diastolic Volume 56.00 ml Stress LV End Systolic Volume 15.00 ml Transient Ischemic Dilatation 0.73 Functional Results Name Value Normal Rest Resting LV Ejection Fraction 57 % 55-70 Resting LV End Diastolic Volume Index 45.00 ml/m2 Resting LV End Systolic Volume Index 14.10 ml/m2 Resting LV End Diastolic Volume 72.00 ml Resting LV End Systolic Volume 31.00 ml Nuclear Rest Myocardial Mass 118.00 g Functional Findings Overall left ventricular systolic function was normal without regional wall motion abnormalities. Gated SPECT imaging reveals normal myocardial wall thickening. Post stress left ventricular ejection fraction is normal, 73 %. Resting left ventricular ejection fraction is normal, 57 %. Left ventricular cavity size is normal. Report Signatures Amended by Juanis Dumont MD on 04/28/2020 02:14 PM MPI SPECT Finalized by Juanis Dumont MD on 04/28/2020 02:12 PM Stress Finalized by Juanis Dumont MD on 04/28/2020 02:12 PM [facility] APTTon 04-14-2020 aPTT Coag (Bld) [Time] Therapeutic range for APTT's is 68 - 104 seconds [facility] aPTT Coag (Bld) [Time] 23 s [facility] Alcohol, Medicalon 0 Ethanol [Mass/Vol] 259.70 mg/dL High <10.00 [facility] Interpretation and review of laboratory results Abnormal [facility] CBCon 04-14-2020 Erythrocyte distribution width (RBC) [Entitic vol] 12.5 % 11.6 - 14.8 % [facility] Hematocrit (Bld) [Volume fraction] 35.6 % Low 41 - 53 % [facility] Hemoglobin (Bld) [Mass/Vol] 11.9 g/dL Low 13.5 - 17.5 g/dL [facility] MCH (RBC) [Entitic mass] 37.4 pg High 26 - 34 pg [facility] MCHC (RBC) [Mass/Vol] 33.4 g/dL 31 - 37 g/dL [facility] MCV (RBC) [Entitic vol] 111.9 fL High 80 - 100 fL [facility] Nucleated RBC (Bld) [#/Vol] 0.00 10*3/uL [facility] Nucleated RBC/100 WBC (Bld) [Ratio] 0.0 % [facility] Platelet mean volume (Bld) [Entitic vol] 10.9 fL 9.4 - 12.4 fL [facility] Platelets (Bld) [#/Vol] 161 10*3/uL [facility] RBC (Bld) [#/Vol] 3.18 10*6/uL [facility] ealth WBC (Bld) [#/Vol] 9.35 10*3/uL [facility] ealth COVID-19, Molecularon 2019 SARS-CoV-2 Not Detected Not Detected [facility] Comment on above: This test was perfor med under the FDA's Emergency Use Authorization (EUA). Testing was performed using the iOcul[employer] ID NOW COVID-19 assay on the ID NOW platform. This test has not been approved for use in asymptomatic patients and its performance in this patient population has not been evaluated. Negative results do not rule out the presence of SARS-CoV-2/COVID-19. Fact sheets for the EUA can be found at the following links: For Healthcare Providers: https://www.fda.gov/media/528344/download For Patients: https://www.fda.gov/media/356180/download CT CERVICAL SPINE WITHOUT CO NTRASTon 04-14-2020 No acute fracture or traumatic malalignment. Etcdmzcc-tz-qwkple multilevel degenerative changes. [employer] Workstation ID: [id number] [facility] EXAMINATION: CT CERV ICAL SPINE WITHOUT CONTRAST HISTORY: ORDERING SYSTEM PROVIDED HISTORY: trauma, TECHNOLOGIST PROVIDED HISTORY: Injury/Trauma Reason for exam: left sided weakness and left side facial droop, fell down a flight of stairs Encounter Type: Initial Mechanism of injury: left sided weakness and left side facial droop, fell down a flight of stairs ORDERING SYSTEM PROVIDED DIAGNOSIS CODES: COMPARISON: None TECHNIQUE: CT cervical spine without contrast. Dose reduction techniques were achieved by using automated exposure control and/or adjustment of mA and/or kV according to patient size and/or use of iterative reconstruction technique. FINDINGS: No acute fracture or traumatic malalignment. 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 Grade 1 degenerative anterolisthesis of C4 on C5 measures 3 mm. Vertebral body heights are normal. Craniocervical junction is normal in appearance. Atlantodental distance is not widened. Severe multilevel degenerative disc disease involving the mid and lower cervical spine. Severe facet arthropathy of the upper cervical spine. No prevertebral soft tissue swelling. Scattered atherosclerotic calcifications of the carotid arteries, left greater than right. [facility] Interface, Rad In Fu ji Speechq - 04/14/2020 6:48 PM EDT EXAMINATION: CT CERVICAL SPINE WITHOUT CONTRAST HISTORY: ORDERING SYSTEM PROVIDED HISTORY: trauma, TECHNOLOGIST PROVIDED HISTORY: Injury/Trauma Reason for exam: left sided weakness and left side facial droop, fell down a flight of stairs Encounter Type: Initial Mechanism of injury: left sided weakness and left side facial droop, fell down a flight of stairs ORDERING SYSTEM PROVIDED DIAGNOSIS CODES: COMPARISON: None TECHNIQUE: CT cervical spine without contrast. Dose reduction techniques were achieved by using automated exposure control and/or adjustment of mA and/or kV according to patient size and/or use of iterative reconstruction technique. FINDINGS: No acute fracture or traumatic malalignment. 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 Grade 1 degenerative anterolisthesis of C4 on C5 measures 3 mm. Vertebral body heights are normal. Craniocervical junction is normal in appearance. Atlantodental distance is not widened. Severe multilevel degenerative disc disease involving the mid and lower cervical spine. Severe facet arthropathy of the upper cervical spine. No prevertebral soft tissue swelling. Scattered atherosclerotic calcifications of the carotid arteries, left greater than right. IMPRESSION: No acute fracture or traumatic malalignment. Ylooiphm-lr-ldzuie multilevel degenerative changes. [employer] Workstation ID: [id number] [facility] CT CERVICAL SPINE WITHOUT CONTRAST EXAMINATION: CT CERVICAL SPINE WITHOUT CONTRAST HISTORY: ORDERING SYSTEM PROVIDED HISTORY: trauma, TECHNOLOGIST PROVIDED HISTORY: Injury/Trauma Reason for exam: left sided weakness and left side facial droop, fell down a flight of stairs Encounter Type: Initial Mechanism of injury: left sided weakness and left side facial droop, fell down a flight of stairs ORDERING SYSTEM PROVIDED DIAGNOSIS CODES: COMPARISON: None TECHNIQUE: CT cervical spine without contrast. Dose reduction techniques were achieved by using automated exposure control and/or adjustment of mA and/or kV according to patient size and/or use of iterative reconstruction technique. FINDINGS: No acute fracture or traumatic malalignment. 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 Grade 1 degenerative anterolisthesis of C4 on C5 measures 3 mm. Vertebral body heights are normal. Craniocervical junction is normal in appearance. Atlantodental distance is not widened. Severe multilevel degenerative disc disease involving the mid and lower cervical spine. Severe facet arthropathy of the upper cervical spine. No prevertebral soft tissue swelling. Scattered atherosclerotic calcifications of the carotid arteries, left greater than right. IMPRESSION: No acute fracture or traumatic malalignment. Uqllgoxr-mw-rztjso multilevel degenerative changes. /[facility] Workstation ID: [id number] Dictated by: MARIAJOSE ANDERSON on MonApr 14, 2020 2:01:27 PM EDT Transcribed by: CAMILA ESPINAL on MonApr 14, 2020 2:23:34 PM EDT Finalized by: MARIAJOSE ANDERSON on MonApr 14, 2020 6:45:42 PM EDT Normal [facility] Comment on above: Order Comment: Injur y/Trauma or Illness?:Injury/Trauma How long have you had these symptoms (acute/chronic)?:Acute Reason for exam?:left sided weakness and left side facial droop, fell down a flight of stairs Type of Exam?:Initial Mechanism of injury?:left sided weakness and left side facial droop, fell down a flight of stairs CT CHEST ABDOMEN PELVIS WITH OUT CONTRASTon 04-14-2020 No acute findings. N o acute displaced rib fractures. Multiple chronic bilateral healed rib fractures. No acute fracture of the pelvis. Chronic findings of hepatic steatosis, cholelithiasis, mild pancreatic duct dilatation and moderate pulmonary emphysema. Moderately severe atherosclerotic disease. Stable mild fusiform aneurysmal dilatation of the descending thoracic aorta. [facility] Workstation ID: [id number] [facility] EXAMINATION: CT CHES T ABDOMEN PELVIS WITHOUT CONTRAST HISTORY: ORDERING SYSTEM PROVIDED HISTORY: trauma, TECHNOLOGIST PROVIDED HISTORY: Injury/Trauma Reason for exam: left sided weakness and left side facial droop, fell down a flight of stairs Encounter Type: Initial Mechanism of injury: left sided weakness and left side facial droop, fell down a flight of stairs ORDERING SYSTEM PROVIDED DIAGNOSIS CODES: COMPARISON: 01/21/2019 CT chest. TECHNIQUE: CT of the chest, abdomen and pelvis without contrast. Dose reduction techniques were achieved by using automated exposure control and/or adjustment of mA and/or kV according to patient size and/or use of iterative reconstruction technique. CONTRAST: No contrast administered. FINDINGS: CHEST: Mediastinum: Trachea and central airways are patent. Stable fusiform aneurysmal dilatation of the proximal aspect of the descending thoracic aorta measuring up to 3.8 cm. Remaining portion of the thoracic aorta is normal in caliber. Moderate atherosclerotic changes of the ascending aorta and aortic arch. Heart is normal in size. No pericardial effusion. Three-vessel coronary arterial calcifications. No pathologically enlarged lymph nodes. Scattered small calcified mediastinal and hilar lymph nodes. Pleural cavity: No pneumothorax. No pleural effusion. Lungs: Moderate upper lobe predominant centrilobular emphysematous changes. Scattered calcified granulomas. No focal airspace consolidation. Chest wall/axilla: No axillary lymphadenopathy. Bones: No destructive lesions. Chronic bilateral healed rib fractures. No acute displaced rib fractures. ABDOMEN: Liver: Hepatic steatosis. Bile ducts: Normal caliber. Gallbladder: Mild gallbladder distention with cholelithiasis. Pancreas: Atrophic appearing pancreas mild pancreatic ductal dilatation measuring up to 4 mm. Similar findings seen on 10/03/2017 CT abdomen. Coarse calcifications of the pancreatic head measuring 8 mm and uncinate process measuring 1 cm. Calcifications are favored to be parenchymal in location. Spleen: Scattered calcified granulomata. Adrenals: Normal. Kidneys: Normal. PELVIS: Reproductive organs: Prostatomegaly with central coarse calcifications. Ureters: Normal. Bladder: Partially distended with nonspecific wall thickening. OTHER ABDOMEN AND PELVIS: Bowel: Mild diffuse colonic stool without bowel obstruction. No appendicitis. Peritoneum: No free intraperitoneal air. No ascites or fluid collection. Vessels: Normal caliber abdominal aorta. Extensive atherosclerotic calcification of the aorta and iliac arteries. Lymph nodes: No enlarged lymph nodes. Abdominal wall: Normal. Osseous structures: No destructive lesions. No acute fracture of the pelvis. [facility], Rad In Fu ji Speechq - 04/14/2020 6:48 PM EDT EXAMINATION: CT CHEST ABDOMEN PELVIS WITHOUT CONTRAST HISTORY: ORDERING SYSTEM PROVIDED HISTORY: trauma, TECHNOLOGIST PROVIDED HISTORY: Injury/Trauma Reason for exam: left sided weakness and left side facial droop, fell down a flight of stairs Encounter Type: Initial Mechanism of injury: left sided weakness and left side facial droop, fell down a flight of stairs ORDERING SYSTEM PROVIDED DIAGNOSIS CODES: COMPARISON: 01/21/2019 CT chest. TECHNIQUE: CT of the chest, abdomen and pelvis without contrast. Dose reduction techniques were achieved by using automated exposure control and/or adjustment of mA and/or kV according to patient size and/or use of iterative reconstruction technique. CONTRAST: No contrast administered. FINDINGS: CHEST: Mediastinum: Trachea and central airways are patent. Stable fusiform aneurysmal dilatation of the proximal aspect of the descending thoracic aorta measuring up to 3.8 cm. Remaining portion of the thoracic aorta is normal in caliber. Moderate atherosclerotic changes of the ascending aorta and aortic arch. Heart is normal in size. No pericardial effusion. Three-vessel coronary arterial calcifications. No pathologically enlarged lymph nodes. Scattered small calcified mediastinal and hilar lymph nodes. Pleural cavity: No pneumothorax. No pleural effusion. Lungs: Moderate upper lobe predominant centrilobular emphysematous changes. Scattered calcified granulomas. No focal airspace consolidation. Chest wall/axilla: No axillary lymphadenopathy. Bones: No destructive lesions. Chronic bilateral healed rib fractures. No acute displaced rib fractures. ABDOMEN: Liver: Hepatic steatosis. Bile ducts: Normal caliber. Gallbladder: Mild gallbladder distention with cholelithiasis. Pancreas: Atrophic appearing pancreas mild pancreatic ductal dilatation measuring up to 4 mm. Similar findings seen on 10/03/2017 CT abdomen. Coarse calcifications of the pancreatic head measuring 8 mm and uncinate process measuring 1 cm. Calcifications are favored to be parenchymal in location. Spleen: Scattered calcified granulomata. Adrenals: Normal. Kidneys: Normal. PELVIS: Reproductive organs: Prostatomegaly with central coarse calcifications. Ureters: Normal. Bladder: Partially distended with nonspecific wall thickening. OTHER ABDOMEN AND PELVIS: Bowel: Mild diffuse colonic stool without bowel obstruction. No appendicitis. Peritoneum: No free intraperitoneal air. No ascites or fluid collection. Vessels: Normal caliber abdominal aorta. Extensive atherosclerotic calcification of the aorta and iliac arteries. Lymph nodes: No enlarged lymph nodes. Abdominal wall: Normal. Osseous structures: No destructive lesions. No acute fracture of the pelvis. IMPRESSION: No acute findings. No acute displaced rib fractures. Multiple chronic bilateral healed rib fractures. No acute fracture of the pelvis. Chronic findings of hepatic steatosis, cholelithiasis, mild pancreatic duct dilatation and moderate pulmonary emphysema. Moderately severe atherosclerotic disease. Stable mild fusiform aneurysmal dilatation of the descending thoracic aorta. [employer] Workstation ID: [id number] [facility] CT CHEST ABDOMEN PELVIS WITHOUT CONTRAST EXAMINATION: CT CHEST ABDOMEN PELVIS WITHOUT CONTRAST HISTORY: ORDERING SYSTEM PROVIDED HISTORY: trauma, TECHNOLOGIST PROVIDED HISTORY: Injury/Trauma Reason for exam: left sided weakness and left side facial droop, fell down a flight of stairs Encounter Type: Initial Mechanism of injury: left sided weakness and left side facial droop, fell down a flight of stairs ORDERING SYSTEM PROVIDED DIAGNOSIS CODES: COMPARISON: 01/21/2019 CT chest. TECHNIQUE: CT of the chest, abdomen and pelvis without contrast. Dose reduction techniques were achieved by using automated exposure control and/or adjustment of mA and/or kV according to patient size and/or use of iterative reconstruction technique. CONTRAST: No contrast administered. FINDINGS: CHEST: Mediastinum: Trachea and central airways are patent. Stable fusiform aneurysmal dilatation of the proximal aspect of the descending thoracic aorta measuring up to 3.8 cm. Remaining portion of the thoracic aorta is normal in caliber. Moderate atherosclerotic changes of the ascending aorta and aortic arch. Heart is normal in size. No pericardial effusion. Three-vessel coronary arterial calcifications. No pathologically enlarged lymph nodes. Scattered small calcified mediastinal and hilar lymph nodes. Pleural cavity: No pneumothorax. No pleural effusion. Lungs: Moderate upper lobe predominant centrilobular emphysematous changes. Scattered calcified granulomas. No focal airspace consolidation. Chest wall/axilla: No axillary lymphadenopathy. Bones: No destructive lesions. Chronic bilateral healed rib fractures. No acute displaced rib fractures. ABDOMEN: Liver: Hepatic steatosis. Bile ducts: Normal caliber. Gallbladder: Mild gallbladder distention with cholelithiasis. Pancreas: Atrophic appearing pancreas mild pancreatic ductal dilatation measuring up to 4 mm. Similar findings seen on 10/03/2017 CT abdomen. Coarse calcifications of the pancreatic head measuring 8 mm and uncinate process measuring 1 cm. Calcifications are favored to be parenchymal in location. Spleen: Scattered calcified granulomata. Adrenals: Normal. Kidneys: Normal. PELVIS: Reproductive organs: Prostatomegaly with central coarse calcifications. Ureters: Normal. Bladder: Partially distended with nonspecific wall thickening. OTHER ABDOMEN AND PELVIS: Bowel: Mild diffuse colonic stool without bowel obstruction. No appendicitis. Peritoneum: No free intraperitoneal air. No ascites or fluid collection. Vessels: Normal caliber abdominal aorta. Extensive atherosclerotic calcification of the aorta and iliac arteries. Lymph nodes: No enlarged lymph nodes. Abdominal wall: Normal. Osseous structures: No destructive lesions. No acute fracture of the pelvis. IMPRESSION: No acute findings. No acute displaced rib fractures. Multiple chronic bilateral healed rib fractures. No acute fracture of the pelvis. Chronic findings of hepatic steatosis, cholelithiasis, mild pancreatic duct dilatation and moderate pulmonary emphysema. Moderately severe atherosclerotic disease. Stable mild fusiform aneurysmal dilatation of the descending thoracic aorta. /[facility] Workstation ID: [id number] Dictated by: MARIAJOSE ANDERSON on MonApr 14, 2020 2:33:49 PM EDT Transcribed by: ANDRAE DANIEL on MonApr 14, 2020 3:18:30 PM EDT Finalized by: MARIAJOSE ANDERSON on MonApr 14, 2020 6:45:27 PM EDT [facility] Comment on above: Order Comment: Injur y/Trauma or Illness?:Injury/Trauma How long have you had these symptoms (acute/chronic)?:Acute Reason for exam?:left sided weakness and left side facial droop, fell down a flight of stairs Type of Exam?:Initial Mechanism of injury?:left sided weakness and left side facial droop, fell down a flight of stairs CT HEAD OR BRAIN WITHOUT CON TRASTon 04-14-2020 1. No intracranial hemorrhage or mass effect. 2. No depressed calvarial fracture. [employer] Workstation ID: [id number] [facility] Interface, Rad In Abel Mendes - 04/14/2020 6:48 PM EDT EXAMINATION: CT HEAD OR BRAIN WITHOUT CONTRAST HISTORY: ORDERING SYSTEM PROVIDED HISTORY: trauma, TECHNOLOGIST PROVIDED HISTORY: Injury/Trauma Reason for exam: hx of cva, left sided weakness and left side facial droop, fell down a flight of stairs Encounter Type: Initial Mechanism of injury: left sided weakness and left side facial droop, fell down a flight of stairs ORDERING SYSTEM PROVIDED DIAGNOSIS CODES: COMPARISON: 08/01/2010 TECHNIQUE: CT examination of the head without IV contrast. Dose reduction techniques were achieved by using automated exposure control and/or adjustment of mA and/or kV according to patient size and/or use of iterative reconstruction technique. FINDINGS: Prominence of the cortical sulci is compatible with mild cerebral volume loss. Ventricles are normal in size. No extraaxial collection. No intracranial hemorrhage. No mass effect or edema. Mild periventricular white matter low attenuation likely relates to chronic small-vessel ischemic changes. No CT evidence of large territorial infarction. Visualized paranasal sinuses are well aerated. Mastoids are clear. Calvarium is unremarkable. IMPRESSION: 1. No intracranial hemorrhage or mass effect. 2. No depressed calvarial fracture. [employer] Workstation ID: [id number] [facility] EXAMINATION: CT HEAD OR BRAIN WITHOUT CONTRAST HISTORY: ORDERING SYSTEM PROVIDED HISTORY: trauma, TECHNOLOGIST PROVIDED HISTORY: Injury/Trauma Reason for exam: hx of cva, left sided weakness and left side facial droop, fell down a flight of stairs Encounter Type: Initial Mechanism of injury: left sided weakness and left side facial droop, fell down a flight of stairs ORDERING SYSTEM PROVIDED DIAGNOSIS CODES: COMPARISON: 08/01/2010 TECHNIQUE: CT examination of the head without IV contrast. Dose reduction techniques were achieved by using automated exposure control and/or adjustment of mA and/or kV according to patient size and/or use of iterative reconstruction technique.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 Thigh N N Calf N N Ankle N B Transmet N B Rasmussen --------- N = Normal B = Abnormal Toe PPG Waveforms Right Left 1st Digit N B Rasmussen --------- N = Normal B = Abnormal Doppler Waveforms Right Left Common Femoral T T Popliteal T T Posterior Tibial T B Dorsalis Pedis T B Rasmussen --------- T = Triphasic B = Biphasic Measurements Right Pressures/Ratios Name Value Units Brachial 150 mmHg Thigh 156 mmHg Calf 160 mmHg Ankle (Posterior Tibial) 176 mmHg Ankle (Dorsalis Pedis) 166 mmHg Toe 121 mmHg CLEMENCIA 1.17 ratio TBI 0.81 ratio Left Pressures/Ratios Name Value Units Brachial 150 mmHg Thigh 152 mmHg Calf 144 mmHg Ankle (Posterior Tibial) 121 mmHg Ankle (Dorsalis Pedis) 129 mmHg Toe 72 mmHg CLEMENCIA 0.86 ratio TBI 0.48 ratio History CAD. CVA. Diabetes. Endarterectomy. Hypercoagulability. Hyperlipidemia. PAD. Tobacco Use-Current. History Comments:right endarterectomy Electronically signed at 12/04/2019 15:56:33 by: Cameron Munguia DO, RPVI [facility] Interface, [facility] In [facility] Xper Echopacs - 12/04/2019 4:18 PM EST Non-Invasive Vascular Patient: TONIO ZAMORA [facility] Rec#: [id number] (Age): 1950(69y) Study Date: 12/04/2019 Room#: Type: Sex: M Reading: Cameron Munguia DO, RPVI Reading: BRITTANY Referring: Cameron Munguia D.O. Enrollment Representative: Albert Sandra Forrest Procedure Info: [id number] Study Quality: Lower Arterial Doppler: adequate Diagnosis: I77.1 Stricture of artery Lower Arterial Doppler Conclusions Right ankle brachial index is normal. Toe pressure is 121 mmHg. Left ankle brachial index indicates mild peripheral artery disease. Disease noted at the infrapopliteal level(s). Toe pressure is 72 mmHg. No evidence of small vessel disease noted at the transmetatarsal level in the right foot. Toe brachial index is abnormal. Mild small vessel disease noted at the transmetatarsal level in the left foot. Toe brachial index is abnormal. This study indicates normal resting right leg CLEMENCIA and mild left leg vascular disease. Doppler and PVR waveforms show satisfactory amplitude and triphasic patterns to the right ankle, and mild blunting and dampening suggesting tibial disease in the left leg. Clinical correlation advised. Enrollment Representative's Comments:05/07/18 [place] right CLEMENCIA 1.13 ; left CLEMENCIA .84 Findings Exercise testing was not performed due to patient walks with cane if walking distance d/t loss of balance . The procedure was explained to the patient. The patient voiced understanding. Finding Grids Lower PVR Waveforms Right Left Thigh N N Calf N N Ankle N B Transmet N B Rasmussen --------- N = Normal B = Abnormal Toe PPG Waveforms Right Left 1st Digit N B Rasmussen --------- N = Normal B = Abnormal Doppler Waveforms Right Left Common Femoral T T Popliteal T T Posterior Tibial T B Dorsalis Pedis T B Rasmussen --------- T = Triphasic B = Biphasic Measurements Right Pressures/Ratios Name Value Units Brachial 150 mmHg Thigh 156 mmHg Calf 160 mmHg Ankle (Posterior Tibial) 176 mmHg Ankle (Dorsalis Pedis) 166 mmHg Toe 121 mmHg CLEMENCIA 1.17 ratio TBI 0.81 ratio Left Pressures/Ratios Name Value Units Brachial 150 mmHg Thigh 152 mmHg Calf 144 mmHg Ankle (Posterior Tibial) 121 mmHg Ankle (Dorsalis Pedis) 129 mmHg Toe 72 mmHg CLEMENCIA 0.86 ratio TBI 0.48 ratio History CAD. CVA. Diabetes. Endarterectomy. Hypercoagulability. Hyperlipidemia. PAD. Tobacco Use-Current. History Comments:right endarterectomy Electronically signed at 12/04/2019 15:56:33 by: Cameron Munguia DO, RPVI [facility] ECG 12-LEADon 06-05-2019 Bret Fuentes MD 06/05/2019 1:46 PM EKG 12-lead Date/Time: 06/05/2019 1:21 PM Performed by: Bret Fuentes MD Authorized by: Bret Fuentes MD Interpreted by ED attending physician Comparison: not compared with previous ECG Rhythm: sinus rhythm BPM: 72 Conduction: conduction normal T Waves: T waves normal normal MT interval normal QRS interval Clinical impression: normal ECG [facility] POC B-type natriuretic pepti de (BNP)on 06-05-2019 Interpretation and review of laboratory results Normal [facility] Natriuretic peptide B (Bld) [Mass/Vol] 97.3 pg/mL <100 [facility] POC Basic Metabolic Panelon 06-05-2019 Calcium [Mass/Vol] 8.9 mg/dL 8.4 - 10. 2 mg/dL [facility] Chloride [Moles/Vol] 105 mmol/L 98 - 10 8 mmol/L [facility] CO2 [Moles/Vol] 28 mmol/L 21 - 32 mmol/L [facility] Creatinine [Mass/Vol] 1.1 mg/dL 0.8 - 1.3 mg/dL [facility] Glucose [Mass/Vol] 81 mg/dL 65 - 99 mg/dL [facility] Interpretation and review of laboratory results Abnormal [facility] Potassium [Moles/Vol] 3.4 mmol/L Low 3.5 - 5.1 mmol/L [facility] Sodium [Moles/Vol] 141 mmol/L 135 - 145 mmol/L [facility] Urea nitrogen [Mass/Vol] 16 mg/dL 8 - 25 mg/dL [facility] POC CBC and Differentialon 0 06-05-2019 Comment See Comment Critically abnormal (none) [facility] Comment on above: CRITICAL. CBCD reord ered and sent to . Platelet count non reportable due to clumping. Erythrocyte distribution width (RBC) [Entitic vol] 12.3 % 11.6 - 14.8 % [facility] Comment on above: This is a corrected result. Previous result was 12.2 % on 06/05/2019 at 1312 EDT Hematocrit (Bld) [Volume fraction] 38.1 % Low 41 - 53 % [facility] Comment on above: This is a corrected result. Previous result was 36.7 % on 06/05/2019 at 1312 EDT Hemoglobin (Bld) [Mass/Vol] 13.2 g/dL Low 13.5 - 17.5 g/dL [facility] Comment on above: This is a corrected result. Previous result was 12.9 g/dL on 06/05/2019 at 1312 EDT Interpretation and review of laboratory results Abnormal [facility] Lymphocytes (Bld) [#/Vol] 2.2 10*3/uL [facility] Comment on above: This is a corrected result. Previous result was 2.1 K/mcl on 06/05/2019 at 1312 EDT Lymphocytes/100 WBC (Bld) 23.7 % [facility] Comment on above: This is a corrected result. Previous result was 22.6 % on 06/05/2019 at 1312 EDT MCH (RBC) [Entitic mass] 36.4 pg High 26 - 34 pg [facility] Comment on above: This is a corrected result. Previous result was 36.6 pg on 06/05/2019 at 1312 EDT MCHC (RBC) [Mass/Vol] 34.6 g/dL 31 - 37 g/dL [facility] Comment on above: This is a corrected result. Previous result was 35.1 g/dL on 06/05/2019 at 1312 EDT MCV (RBC) [Entitic vol] 105.0 fL High 80 - 100 fL [facility] Comment on above: This is a corrected result. Previous result was 104.3 fL on 06/05/2019 at 1312 EDT Mixed 2.7 % [facility] Comment on above: This is a corrected result. Previous result was 3.1 % on 06/05/2019 at 1312 EDT Mixed Abs 0.3 K/mcl [facility] Neutrophil Abs 6.9 [facility] Comment on above: This is a corrected result. Previous result was 7.1 K/mcl on 06/05/2019 at 1312 EDT Neutrophils/100 WBC (Bld) 73.6 % [facility] Comment on above: This is a corrected result. Previous result was 74.3 % on 06/05/2019 at 1312 EDT Platelet mean volume (Bld) [Entitic vol] 12.2 fL 9 - 15.5 fL [facility] Comment on above: This is an appended report. These results have been appended to a previously final verified report. Platelets (Bld) [#/Vol] 212 10*3/uL [facility] Comment on above: This is an appended report. These results have been appended to a previously final verified report. RBC (Bld) [#/Vol] 3.63 10*6/uL [facility] ealt Comment on above: This is a corrected result. Previous result was 3.52 M/mcL on 06/05/2019 at 1312 EDT WBC (Bld) [#/Vol] 9.40 10*3/uL [facility] Comment on above: This is a corrected result. Previous result was 9.50 K/mcL on 06/05/2019 at 1312 EDT POC Troponin Ion 06-05-2019 Interpretation and review of laboratory results Normal [facility] Troponin I.cardiac [Mass/Vol] ng/mL <0.05 ng/mL [facility] XR CHEST AP/PA AND LATon XR CHEST AP/PA AND LAT EXAMINATION: XR CHEST AP/PA AND LAT HISTORY: ORDERING SYSTEM PROVIDED HISTORY: sob, TECHNOLOGIST PROVIDED HISTORY: Illness/Other Reason for exam: Pt states cxr on 05-27-19 showed pneumonia and provider wanted to admit him but he had plans with family and declined. Pt presents with same symptoms, directed by pcp to ED Cancer History: un Surgery, RadiationHistory: un Encounter Type: Subsequent/Follow-up Additional signs and symptoms: hx htn ORDERING SYSTEM PROVIDED DIAGNOSIS CODES: COMPARISON: Two-view chest from 05/27/2019. FINDINGS: Trachea, mediastinum and heart size are unremarkable. The lungs are clear and well aerated. No effusion or nodule or pneumothorax or infiltrate is noted. The diaphragm and bony elements are intact, osteopenic degenerative changes are noted diffusely. There is an old rib fracture involving the right 4th rib. IMPRESSION: Nonacute two-view chest with mild chronic degenerative changes. Workstation ID: [id number] Dictated by: DESHAUN LANIER on MonJun 05, 2019 12:57:52 PM EDT Transcribed by: DESHAUN LANIER on MonJun 05, 2019 12:57:52 PM EDT Finalized by: DESHAUN LANIER on MonJun 05, 2019 12:57:52 PM EDT [facility] Comment on above: Order Comment: Injur y/Trauma or Illness?:Illness/Other How long have you had these symptoms (acute/chronic)?:Unknown Reason for exam?:Pt states cxr on 05-27-19 showed pneumonia and provider wanted to admit him but he had plans with family and declined. Pt presents with same symptoms, directed by pcp to ED History of cancer?:un Surgeries, chemotherapy, or radiation?:un Type of Exam?:Subsequent/Follow-up Additional signs and symptoms?:hx htn Interface, Rad In Fu ji Speechq - 06/05/2019 1:00 PM EDT EXAMINATION: XR CHEST AP/PA AND LAT HISTORY: ORDERING SYSTEM PROVIDED HISTORY: sob, TECHNOLOGIST PROVIDED HISTORY: Illness/Other Reason for exam: Pt states cxr on 05-27-19 showed pneumonia and provider wanted to admit him but he had plans with family and declined. Pt presents with same symptoms, directed by pcp to ED Cancer History: un Surgery, RadiationHistory: un Encounter Type: Subsequent/Follow-up Additional signs and symptoms: hx htn ORDERING SYSTEM PROVIDED DIAGNOSIS CODES: COMPARISON: Two-view chest from 05/27/2019. FINDINGS: Trachea, mediastinum and heart size are unremarkable. The lungs are clear and well aerated. No effusion or nodule or pneumothorax or infiltrate is noted. The diaphragm and bony elements are intact, osteopenic degenerative changes are noted diffusely. There is an old rib fracture involving the right 4th rib. IMPRESSION: Nonacute two-view chest with mild chronic degenerative changes. Workstation ID: [id number] [facility] EXAMINATION: XR CHES T AP/PA AND LAT HISTORY: ORDERING SYSTEM PROVIDED HISTORY: sob, TECHNOLOGIST PROVIDED HISTORY: Illness/Other Reason for exam: Pt states cxr on 05-27-19 showed pneumonia and provider wanted to admit him but he had plans with family and declined. Pt presents with same symptoms, directed by pcp to ED Cancer History: un Surgery, RadiationHistory: un Encounter Type: Subsequent/Follow-up Additional signs and symptoms: hx htn ORDERING SYSTEM PROVIDED DIAGNOSIS CODES: COMPARISON: Two-view chest from 05/27/2019. FINDINGS: Trachea, mediastinum and heart size are unremarkable. The lungs are clear and well aerated. No effusion or nodule or pneumothorax or infiltrate is noted. The diaphragm and bony elements are intact, osteopenic degenerative changes are noted diffusely. There is an old rib fracture involving the right 4th rib. [facility] Nonacute two-view ch est with mild chronic degenerative changes. Workstation ID: [id number] [facility] CBC WITH AUTO DIFFERENTIALon 05-27-2019 Basophils (Bld) [#/Vol] 0.06 10*3/uL [facility] Basophils/100 WBC (Bld) 0.6 % [facility] Eosinophils (Bld) [#/Vol] 0.01 10*3/uL [facility] Eosinophils/100 WBC (Bld) 0.1 % [facility] Erythrocyte distribution width (RBC) [Entitic vol] 12.4 % 11.6 - 14.8 % [facility] Hematocrit (Bld) [Volume fraction] 35.5 % Low 41 - 53 % [facility] Hemoglobin (Bld) [Mass/Vol] 12.7 g/dL Low 13.5 - 17.5 g/dL [facility] Immature granulocytes (Bld) [#/Vol] 0.05 10*3/uL [facility] Immature granulocytes/100 WBC (Bld) 0.50 % [facility] Comment on above: The IG parameter is the percentage of metamyelocytes, myelocytes, and promyelocytes. Interpretation and review of laboratory results Abnormal [facility] Lymphocytes (Bld) [#/Vol] 1.78 10*3/uL [facility] Lymphocytes/100 WBC (Bld) 18.9 % [facility] MCH (RBC) [Entitic mass] 37.4 pg High 26 - 34 pg [facility] MCHC (RBC) [Mass/Vol] 35.8 g/dL 31 - 37 g/dL [facility] MCV (RBC) [Entitic vol] 104.4 fL High 80 - 100 fL [facility] Monocytes (Bld) [#/Vol] 0.84 10*3/uL [facility] Monocytes/100 WBC (Bld) 8.9 % [facility] Neutrophils (Bld) [#/Vol] 6.68 10*3/uL [facility] Neutrophils/100 WBC (Bld) 71.0 % [facility] Nucleated RBC (Bld) [#/Vol] 0.00 10*3/uL [facility] Nucleated RBC/100 WBC (Bld) [Ratio] 0.0 % [facility] Platelet mean volume (Bld) [Entitic vol] 11.2 fL 9 - 15.5 fL [facility] Platelets (Bld) [#/Vol] 116 10*3/uL Low [facility] RBC (Bld) [#/Vol] 3.40 10*6/uL Low [facility] WBC (Bld) [#/Vol] 9.42 10*3/uL [facility] CMPon 05-27-2019 Albumin [Mass/Vol] 3.2 g/dL 3.2 - 5.2 g/dL [facility] ALP [Catalytic activity/Vol] 42 U/L 40 - 150 U/L [facility] ALT [Catalytic activity/Vol] 28 U/L 14 - 65 U/L [facility] Anion gap [Moles/Vol] 13 mmol/L 10 - 2 0 mmol/L [facility] AST [Catalytic activity/Vol] 26 U/L 0 - 45 U/L [facility] Bilirubin [Mass/Vol] 0.4 mg/dL 0 - 1.3 mg/dL [facility] Calcium [Mass/Vol] 9.4 mg/dL 8.4 - 10. 2 mg/dL [facility] Chloride [Moles/Vol] 106 mmol/L 98 - 10 8 mmol/L [facility] Creatinine [Mass/Vol] 1.18 mg/dL 0.8 - 1.3 mg/dL [facility] GFR/1.73 sq M predicted among non-blacks MDRD (S/P/Bld) [Vol rate/Area] The eGFR should be used for monitoring renal function only and not for medication dosing. [facility] GFR/1.73 sq M.predicted CKD-EPI (S/P/Bld) [Vol rate/Area] 62 >=60 mL/min/1.73 m2 [facility] Glucose [Mass/Vol] 90 mg/dL 65 - 99 mg/dL [facility] HCO3 [Moles/Vol] 25 mmol/L 21 - 32 mmol/L [facility] Interpretation and review of laboratory results Normal [facility] Potassium [Moles/Vol] 3.9 mmol/L 3.5 - 5.1 mmol/L [facility] Protein [Mass/Vol] 6.8 g/dL 6 - 8 g/dL [facility] Sodium [Moles/Vol] 140 mmol/L 135 - 145 mmol/L [facility] Urea nitrogen [Mass/Vol] 16 mg/dL 8 - 25 mg/dL [facility] Urea nitrogen/Creatinine [Mass ratio] 13.6 mg/mg [facility] Light Blue Topon 05-27-2019 Extra Tube Hold for add-ons. [facility] Comment on above: Auto resulted. ECG 12-LEADon 04-01-2019 Atrial Rate [facility] P [place] [facility] P-R Interval [facility] Q-T Interval [facility] Q-T Interval (corrected) [facility] QRS Duration [facility] QTC Calculation (Bezet) [facility] R [place] [facility] T [place] [facility] Ventricular Rate [facility] CT CHEST LOW DOSE LUNG SCREE ANTHONY - LCSPon 01-21-[address] evidence for developing pulmonary malignancy. Lung-RADs 1 Findings: No lung nodules; nodule(s) with specific calcifications: Complete, central, popcorn, concentric rings and fat containing nodules. Management: Continue annual screening with LDCT in 12 months. [employer] Workstation ID: [id number] [facility] EXAMINATION: CT CHES T LOW DOSE LUNG SCREENING - LCSP HISTORY: ORDERING SYSTEM PROVIDED HISTORY: Screening for malignant neoplasm of respiratory organ, TECHNOLOGIST PROVIDED HISTORY: Reason for exam: lowdose lung screen Illness/Other Encounter Type: Initial Additional signs and symptoms: current smoker 30 py yrs ORDERING SYSTEM PROVIDED DIAGNOSIS CODES: Z12.2 Screening for malignant neoplasm of respiratory organ F17.210 Cigarette Smoker COMPARISON: 01/11/2018 at [facility] in [place] and 09/17/2010 from [place]. TECHNIQUE: Dose reduction techniques were achieved by using automated exposure control and/or adjustment of mA and/or kV according to patient size and/or use of iterative reconstruction technique. 21 mA 110 kVp. FINDINGS: There are a couplet of perifissural nodules posterior left upper lobe measuring up to 2 mm. These are stable since 2009. Multiple calcified granulomata are seen left upper lobe and lingula. There are also calcified granulomata in the right lower lobe and right upper lobe and right middle lobe. No developing ground-glass or solid type pulmonary nodules. There is a background of moderate centrilobular pulmonary emphysema. No central endobronchial obstruction or mass. Extensive atherosclerotic calcification is seen in the coronary arteries and thoracic aorta. Thoracic aortic arch is ectatic measuring up to 3.9 cm although unchanged. No mediastinal or hilar lymphadenopathy. Scan into the upper abdomen shows normal-sized adrenal glands. Partial visualization of radiodense material in the gallbladder suggesting gallstones. [facility] US DOPPLER CAROTIDon 019 Non-Invasive Vascula r Patient: TONIO Oseguera [facility] Rec#: [id number] (Age): 1950(68y) Study Date: 11/26/2018 Room#: Type: Sex: M Reading: Dr. Marv Krause MD, RPVI Reading: BRITTANY Referring: AQUILES HERRERA PAUL Enrollment Representative: ALBERT SANDRA Procedure Info: [id number]... Study Quality: Carotid Duplex: adequate Diagnosis: I65.23 Occlusion and stenosis of bilateral carotid arteries Carotid Duplex Conclusions There was no evidence of stenosis of the right common carotid artery. There was no evidence of stenosis in the right internal carotid artery. There was no evidence of stenosis in the right external carotid artery. There was retrograde flow in the right vertebral artery. Stenosis noted in right subclavian artery with vertebral steal. The site of a previous right endarterectomy was patent without restenosis. There was no evidence of stenosis of the left common carotid artery. There was moderate stenosis (50-69%) of the left internal carotid artery. There was no evidence of stenosis in the left external carotid artery. The left vertebral artery was patent with antegrade flow. There was no evidence of stenosis in the left subclavian artery. Enrollment Representative's Comments:05/07/18 Right ICA 0% ; left ICA 50-69% Findings The right common carotid artery contained a small amount of calcified plaque, heterogeneous in consistency. The right internal carotid artery showed no evidence of plaque. The right external carotid artery showed no evidence of plaque. The left common carotid artery contained a small amount of calcified plaque. The left internal carotid artery contained a moderate amount of calcified plaque, heterogeneous in consistency. The left external carotid artery contained a small amount of calcified plaque. The procedure was explained to the patient. The patient voiced understanding. Measurements Right Carotid PSV Name Value Units PCCA 61.8 cm/sec MCCA 67.7 cm/sec DCCA -57.7 cm/sec PICA -75.1 cm/sec SEBASTIAN -58.1 cm/sec DICA -47.6 cm/sec ECA -74.2 cm/sec Rebecca PSV 63 cm/sec PSCA 229 cm/sec Right Carotid EDV Name Value Units PCCA 15.7 cm/sec MCCA 20.3 cm/sec DCCA -15 cm/sec PICA -20.6 cm/sec SEBASTIAN -21 cm/sec DICA -21.7 cm/sec ECA -15.8 cm/sec Left Carotid PSV Name Value Units PCCA 50 cm/sec MCCA 63.8 cm/sec DCCA -48.2 cm/sec PICA -179 cm/sec SEBASTIAN -152 cm/sec DICA -138 cm/sec ECA -76 cm/sec Vertebral 43.3 cm/sec PSCA 96.9 cm/sec Left Carotid EDV Name Value Units PCCA 20 cm/sec MCCA 25 cm/sec DCCA -18.2 cm/sec PICA -65.9 cm/sec SEBASTIAN -60.5 cm/sec DICA -76 cm/sec ECA -23.3 cm/sec Vertebral 15.9 cm/sec Blood Pressures and Ratios Name Value Units R ICA/CCA 1.1 ratio L ICA/CCA 2.81 ratio History CVA. Diabetes. Endarterectomy. Hyperlipidemia. Hypertension. Tobacco Use-Current. History Comments:right endarterectomy Electronically signed at 11/26/2018 10:09:03 by: Dr. Marv Krause MD, YASMIN [facility] Interface, Rad In [facility] Xper Echopacs - 11/26/2018 10:19 AM EST Non-Invasive Vascular Patient: TONIO Oseguera [facility] Rec#: [id number] (Age): 1950(68y) Study Date: 11/26/2018 Room#: Type: Sex: M Reading: Dr. Marv Krause MD, CORWINVI Reading: BRITTANY Referring: AQUILES HERRERA PAUL Enrollment Representative: ALBERT SANDRA Procedure Info: [id number]... Study Quality: Carotid Duplex: adequate Diagnosis: I65.23 Occlusion and stenosis of bilateral carotid arteries Carotid Duplex Conclusions There was no evidence of stenosis of the right common carotid artery. There was no evidence of stenosis in the right internal carotid artery. There was no evidence of stenosis in the right external carotid artery. There was retrograde flow in the right vertebral artery. Stenosis noted in right subclavian artery with vertebral steal. The site of a previous right endarterectomy was patent without restenosis. There was no evidence of stenosis of the left common carotid artery. There was moderate stenosis (50-69%) of the left internal carotid artery. There was no evidence of stenosis in the left external carotid artery. The left vertebral artery was patent with antegrade flow. There was no evidence of stenosis in the left subclavian artery. Enrollment Representative's Comments:05/07/18 Right ICA 0% ; left ICA 50-69% Findings The right common carotid artery contained a small amount of calcified plaque, heterogeneous in consistency. The right internal carotid artery showed no evidence of plaque. The right external carotid artery showed no evidence of plaque. The left common carotid artery contained a small amount of calcified plaque. The left internal carotid artery contained a moderate amount of calcified plaque, heterogeneous in consistency. The left external carotid artery contained a small amount of calcified plaque. The procedure was explained to the patient. The patient voiced understanding. Measurements Right Carotid PSV Name Value Units PCCA 61.8 cm/sec MCCA 67.7 cm/sec DCCA -57.7 cm/sec PICA -75.1 cm/sec SEBASTIAN -58.1 cm/sec DICA -47.6 cm/sec ECA -74.2 cm/sec Rebecca PSV 63 cm/sec PSCA 229 cm/sec Right Carotid EDV Name Value Units PCCA 15.7 cm/sec MCCA 20.3 cm/sec DCCA -15 cm/sec PICA -20.6 cm/sec SEBASTIAN -21 cm/sec DICA -21.7 cm/sec ECA -15.8 cm/sec Left Carotid PSV Name Value Units PCCA 50 cm/sec MCCA 63.8 cm/sec DCCA -48.2 cm/sec PICA -179 cm/sec SEBASTIAN -152 cm/sec DICA -138 cm/sec ECA -76 cm/sec Vertebral 43.3 cm/sec PSCA 96.9 cm/sec Left Carotid EDV Name Value Units PCCA 20 cm/sec MCCA 25 cm/sec DCCA -18.2 cm/sec PICA -65.9 cm/sec SEBASTIAN -60.5 cm/sec DICA -76 cm/sec ECA -23.3 cm/sec Vertebral 15.9 cm/sec Blood Pressures and Ratios Name Value Units R ICA/CCA 1.1 ratio L ICA/CCA 2.81 ratio History CVA. Diabetes. Endarterectomy. Hyperlipidemia. Hypertension. Tobacco Use-Current. History Comments:right endarterectomy Electronically signed at 11/26/2018 10:09:03 by: Dr. Marv Krause MD, RPVI [facility] Ultrasound abdominal aorta d uplex limitedon 11-26-2018 Non-Invasive Vascula r Patient: TONIO Oseguera [facility] Rec#: [id number] (Age): 1950(68y) Study Date: 11/26/2018 Room#: Type: Sex: M Reading: BRITTANY Reading: Dr. Marv Krause MD, RPVI Referring: AQUILES HERRERA PAUL Enrollment Representative: Soraya Floyd, RVT, RDMS Procedure Info: [id number] Study Quality: Aneurysm Duplex: adequate Diagnosis: R09.89 Other specified symptoms and signs involving the circulatory and respiratory systems Aneurysm Duplex Conclusions No evidence of an abdominal aortic aneurysm. No evidence of right or left common iliac artery aneurysm. Incidental note of a velocity of 438cm/s noted in the left common iliac artery suggestive of a stenosis greater than 50%. The procedure was explained to the patient. The patient voiced understanding. Measurements Aorta Name Value Units AP Prox 2.13 cm AP Mid 2.18 cm AP Dist 1.38 cm TRV Prox 2.2 cm TRV Mid 2.23 cm TRV Dist 1.33 cm Aorta PSV Name Value Units Prox Aorta 77 cm/sec Mid Aorta 44 cm/sec Dist Aorta 66 cm/sec Right Name Value Units AP JAYME 0.87 cm TRV JAYME 0.87 cm Right PSV Name Value Units JAYME 92 cm/sec Left Name Value Units AP JAYME 0.71 cm TRV JAYME 0.67 cm Left PSV Name Value Units JAYME 438 cm/sec History Carotid Artery Stenosis. Diabetes. Endarterectomy. Hyperlipidemia. Hypertension. Tobacco Use-Current. History Comments:RCEA Electronically signed at 11/26/2018 10:10:49 by: Dr. Marv Krause MD, VI [facility] Interface, Rad In Heartlab Xper Echopacs - 11/26/2018 10:19 AM EST Non-Invasive Vascular Patient: TONIO Oseguera [facility] Rec#: [id number] (Age): 1950(68y) Study Date: 11/26/2018 Room#: Type: Sex: M Reading: BRITTANY Reading: Dr. Marv Krause MD, RPVI Referring: AQUILES HERRERA PAUL Enrollment Representative: Soraya Floyd, BRISA, ROSANA Procedure Info: [id number] Study Quality: Aneurysm Duplex: adequate Diagnosis: R09.89 Other specified symptoms and signs involving the circulatory and respiratory systems Aneurysm Duplex Conclusions No evidence of an abdominal aortic aneurysm. No evidence of right or left common iliac artery aneurysm. Incidental note of a velocity of 438cm/s noted in the left common iliac artery suggestive of a stenosis greater than 50%. The procedure was explained to the patient. The patient voiced understanding. Measurements Aorta Name Value Units AP Prox 2.13 cm AP Mid 2.18 cm AP Dist 1.38 cm TRV Prox 2.2 cm TRV Mid 2.23 cm TRV Dist 1.33 cm Aorta PSV Name Value Units Prox Aorta 77 cm/sec Mid Aorta 44 cm/sec Dist Aorta 66 cm/sec Right Name Value Units AP JAYME 0.87 cm TRV JAYME 0.87 cm Right PSV Name Value Units JAYME 92 cm/sec Left Name Value Units AP JAYME 0.71 cm TRV JAYME 0.67 cm Left PSV Name Value Units JAYME 438 cm/sec History Carotid Artery Stenosis. Diabetes. Endarterectomy. Hyperlipidemia. Hypertension. Tobacco Use-Current. History Comments:RCEA Electronically signed at 11/26/2018 10:10:49 by: Dr. Marv Krause MD, RPVI [facility] Dobutamine stress echocardio gramon 11-13-2018 Target HR bpm [facility] Stress Echocardiogra m Patient: TONIO Oseguera [facility] Rec#: [id number] (Age): 1950(68y) Height: 170(cm)/66(in) Study Date: 11/13/2018 Weight: 66.7(kg)/147(lb Room#: BSA: 1.77 Type: Loc: Sex: M Reading: Slivia Joshua M.D. [facility] Enrollment Representative: Faith Richey RN RDCS Supervising - Clarita Galvez MD History: COPD. CVA, history. Summary: The patient was identified (pause and confirm, no wristband). Current HP present on patient chart. Patient instructed of procedure and confirmed understanding of test. Consent obtained for procedure. Medication Reconciliation completed. Conclusions: Graded dobutamine infusion to 30cmg/kg/min and 1mg atropine, achieved 43% APMHR. Patient stated he took his inderal the morning of the test. Resting wall motion normal with LVEF 60% with baseline hypertension. Baseline ECG with NSR, no ST/T abnormalities. Rare PACs. Indeterminant dobutamine stress echo due to failure to reach THR. No change in resting HR or maximal dobutamine and atropine post HR. Significantly blunted HR reponse to stress agents. Baseline HTN with worsening HTN with dobutamine. The patient achieved a maximum heart rate of 64. Findings Rest Reason For Study: Chest pain. Left Ventricle: The left ventricular chamber size is normal. Global left ventricular wall motion and contractility are within normal limits. The LV Ejection Fraction is 60%. Right Ventricle: The right ventricular cavity size is normal. The right ventricular global systolic function is normal. Mitral Valve: The mitral valve leaflets appear normal. Tricuspid Valve: The tricuspid valve leaflets are normal. Findings Peak Stress: The target heart rate is 151 bpm. Patient achieved 43% of their maximum predicted heart rate. Patient cannot exercise due to: Difficulty in walking (719.7) The peak dose of Dobutamine infused was 30 ug/kg/min. The patient was administered 1.0 mg of Atropine. The study was terminated because of inability to reach target heart rate. Patient took morning dose of Inderol. Hypertensive resting blood pressure. The blood pressure response is hypertensive. There were rare atrial premature beats. This is an equivocal electrocardiographic stress test. This was an equivocal echocardiographic stress test. Stage HR BP Rest 59 172/92 Peak 64 205/102 Recovery 62 191/93 Electronically Signed at 11/13/2018 13:09:45 by: Silvia Joshua M.D. [facility], Rad In Heartlab Xper Echopacs - 11/13/2018 1:17 PM EST Stress Echocardiogram Patient: TONIO Oseguera [facility] Rec#: [id number] (Age): 1950(68y) Height: 170(cm)/66(in) Study Date: 11/13/2018 Weight: 66.7(kg)/147(lb Room#: BSA: 1.77 Type: Loc: Sex: M Reading: Silvia Joshua M.D. Ordering ProvidDr. Aquiles eHrrera MD Enrollment Representative: Faith Richey RN RDCS Supervising - Clarita Galvez MD History: COPD. CVA, history. Summary: The patient was identified (pause and confirm, no wristband). Current HP present on patient chart. Patient instructed of procedure and confirmed understanding of test. Consent obtained for procedure. Medication Reconciliation completed. Conclusions: Graded dobutamine infusion to 30cmg/kg/min and 1mg atropine, achieved 43% APMHR. Patient stated he took his inderal the morning of the test. Resting wall motion normal with LVEF 60% with baseline hypertension. Baseline ECG with NSR, no ST/T abnormalities. Rare PACs. Indeterminant dobutamine stress echo due to failure to reach THR. No change in resting HR or maximal dobutamine and atropine post HR. Significantly blunted HR reponse to stress agents. Baseline HTN with worsening HTN with dobutamine. The patient achieved a maximum heart rate of 64. Findings Rest Reason For Study: Chest pain. Left Ventricle: The left ventricular chamber size is normal. Global left ventricular wall motion and contractility are within normal limits. The LV Ejection Fraction is 60%. Right Ventricle: The right ventricular cavity size is normal. The right ventricular global systolic function is normal. Mitral Valve: The mitral valve leaflets appear normal. Tricuspid Valve: The tricuspid valve leaflets are normal. Findings Peak Stress: The target heart rate is 151 bpm. Patient achieved 43% of their maximum predicted heart rate. Patient cannot exercise due to: Difficulty in walking (719.7) The peak dose of Dobutamine infused was 30 ug/kg/min. The patient was administered 1.0 mg of Atropine. The study was terminated because of inability to reach target heart rate. Patient took morning dose of Inderol. Hypertensive resting blood pressure. The blood pressure response is hypertensive. There were rare atrial premature beats. This is an equivocal electrocardiographic stress test. This was an equivocal echocardiographic stress test. Stage HR BP Rest 59 172/92 Peak 64 205/102 Recovery 62 191/93 Electronically Signed at 11/13/2018 13:09:45 by: Silvia Joshua M.D. [facility] FASTINGon 11-12-2018 A:G RATIO 1.3 RATIO Normal 1.3-2.2 [facility] Comment on above: Performed By: #### F X, CMPF, LIP2 #### Testing performed at [address] [address] Albumin mass conc 3.5 G/dl Normal 3.5-5.0 [facility] Comment on above: Performed By: #### F X, CMPF, LIP2 #### Testing performed at [address] [address] ALP enzyme act/vol 49 U/L Normal 38-126 [facility] Comment on above: Performed By: #### F X, CMPF, LIP2 #### Testing performed at [address] [address] ALT enzyme act/vol 20 U/L Normal 17-63 [facility] Comment on above: Performed By: #### F X, CMPF, LIP2 #### Testing performed at [address] [address] AST enzyme act/vol 25 U/L Normal 15-41 [facility] Comment on above: Performed By: #### F X, CMPF, LIP2 #### Testing performed at [address] [address] Bilirubin mass conc 0.6 mg/dL Normal 0.2-1.2 [facility] Comment on above: Performed By: #### F X, CMPF, LIP2 #### Testing performed at [address] [address] Creatinine mass conc 1.3 mg/dL High 0.66-1.25 [facility] Comment on above: Performed By: #### F X, CMPF, LIP2 #### Testing performed at [address] [address] EST. GFR, >60 Normal [facility] Comment on above: Performed By: #### F X, CMPF, LIP2 #### Testing performed at [address] [address] EST. GFR,Non 58 ml/min/1.73sq.m Normal [facility] Comment on above: Performed By: #### F X, CMPF, LIP2 #### Testing performed at [address] [address] GFR/1.73 sq M predicted among non-blacks MDRD vol rate/area (S/P/Bld) Average GFR for 60-69 years old = 85. Normal [facility] Comment on above: Result Comment: Detective Supervisor ulises Kidney disease, GFR = <60. Kidney failure, GFR = <15. The GFR estimate is not adjusted for extreme body surface area or acute process, nor has it been validated for women or ethnic groups other than and . Performed By: #### F X, CMPF, LIP2 #### Testing performed at [address] [address] Protein mass conc 6.3 g/dL Normal 6.3-8.2 [facility] Comment on above: Performed By: #### F X, CMPF, LIP2 #### Testing performed at [address] [address] Urea nitrogen mass conc 28 mg/dL High 7-20 [facility] Comment on above: Performed By: #### F X, CMPF, LIP2 #### Testing performed at [address] [address] Calcium mass conc 9.0 mg/dL Normal 8.4-10.2 [facility] Comment on above: Performed By: #### F X, CMPF, LIP2 #### Testing performed at [address] [address] Chloride molar conc 101 mmol/L Normal 98-107 [facility] Comment on above: Performed By: #### F X, CMPF, LIP2 #### Testing performed at [address] [address] CO2 molar conc 27 mmol/L Normal 22-30 [facility] Comment on above: Performed By: #### F X, CMPF, LIP2 #### Testing performed at [address] [address] Glucose mass conc 111 mg/dL High 70-100 [facility] Comment on above: Result Comment: NORMAL <100 mg/dL PREDIABETES 101-126 mg/dL DIABETES 126 mg/dL or higher Performed By: #### F X, CMPF, LIP2 #### Testing performed at [address] [address] Potassium molar conc 4.0 mmol/L Normal 3.5-5.1 [facility] Comment on above: Performed By: #### F X, CMPF, LIP2 #### Testing performed at [address] [address] Sodium molar conc 138 mmol/L Normal 136-145 [facility] Comment on above: Performed By: #### F X, CMPF, LIP2 #### Testing performed at [address] [address] FAX REQUESTon 11-12-2018 FAX TO FAX TO [facility] Comment on above: Performed By: #### F X, PSA #### Testing performed at [address] [address] FAX TO FAX TO [facility] Comment on above: Performed By: #### F X, HA1CT #### Testing performed at [address] [address] FAX TO FAX TO [facility] Comment on above: Performed By: #### F X, CMPF, LIP2 #### Testing performed at [address] [address] HEMOGLOBIN A1Con 11-12-2018 Hemoglobin A1c/Hemoglobin.total mass fraction (Bld) 105 mg/dL Normal [facility] Comment on above: Performed By: #### F X, HA1CT #### Testing performed at [address] [address] Hemoglobin A1c/Hemoglobin.total mass fraction (Bld) 5.3 % Normal <6 [facility] Comment on above: Result Comment: NORMAL <5.7% PREDIABETES 5.7-6.4% DIABETES 6.5% OR HIGHER Performed By: #### F X, HA1CT #### Testing performed at [address] [address] LIPID PROFILEon 11-12-2018 Cholesterol in HDL mass conc 51 mg/dL Normal 40-60 [facility] Comment on above: Performed By: #### F X, CMPF, LIP2 #### Testing performed at [address] [address] Cholesterol in LDL mass conc 81 mg/dL Normal 0-100 [facility] Comment on above: Performed By: #### F X, CMPF, LIP2 #### Testing performed at [address] [address] Cholesterol in VLDL mass conc 38 mg/dL High 5.0-25.0 [facility] Comment on above: Performed By: #### F X, CMPF, LIP2 #### Testing performed at [address] [address] Cholesterol mass conc 170 mg/dL Normal 100-199 [facility] Comment on above: Performed By: #### F X, CMPF, LIP2 #### Testing performed at [address] [address] Cholesterol.total/Caren sterol in HDL mass ratio 3.33 {ratio} Normal [facility] Comment on above: Result Comment: RISK TOTAL/HDL RATIO MEN WOMEN 1/2 AVERAGE 3.43 3.27 AVERAGE 4.97 4.44 2X AVERAGE 9.55 7.05 3X AVERAGE 23.99 11.04 Performed By: #### F X, CMPF, LIP2 #### Testing performed at [address] [address] Triglyceride mass conc 192 mg/dL High <150 [facility] Comment on above: Performed By: #### F X, CMPF, LIP2 #### Testing performed at [address] [place] [address] PSA,TOTALon 11-12-2018 PSA,TOTAL 0.990 NG/ML Normal 0-4 [facility] Comment on above: Result Comment: OBTAIN BASELINE BETWEEN AGES OF 45-75 LESS THAN 1.0 ng/mL REPEAT TESTING AT 2-4 YEARS 1.0-3.0 ng/mL REPEAT TESTING AT 1-2 YEARS GREATER THAN 3.0 ng/mL REPEAT PSA,DANG, AND WORKUP FOR BENIGN DISEASE AGE GREATER THAN 75, PSA LESS THAN 3 ng/mL REPEAT TESTING IN 1-4 YEARS Performed By: #### F X, PSA #### Testing performed at [address] [place] [address] CBC AND DIFFERENTIALon 09-19 Basophils Auto #/vol (Bld) 0.1 10*3/uL Invalid Interpretation Code [facility] Basophils/100 WBC Auto (Bld) 2.0 % Invalid Interpretation Code [facility] Eosinophils Auto #/vol (Bld) 0.2 10*3/uL Invalid Interpretation Code [facility] Eosinophils/100 WBC Auto (Bld) 3.8 % Invalid Interpretation Code [facility] Erythrocyte distribution width Auto Ratio (RBC) 13.4 % Invalid Interpretation Code 10 - 14.3 % [facility] Hematocrit Auto Volume Fraction (Bld) 43.6 % Invalid Interpretation Code 37.9 - 49.2 % [facility] Hemoglobin mass conc (Bld) 14.8 g/dL Invalid Interpretation Code 12.9 - 16.9 g/dL [facility] Interpretation and review of laboratory results Abnormal Invalid Interpretation Code [facility] Lymphocytes Auto #/vol (Bld) 2.4 10*3/uL Invalid Interpretation Code [facility] Lymphocytes/100 WBC Auto (Bld) 38.9 % Invalid Interpretation Code [facility] MCH Auto Entitic mass (RBC) 37.6 pg High 27.7 - 34.[address] [facility] MCHC Auto mass conc (RBC) 34.0 g/dL Invalid Interpretation Code 32.9 - 35.5 g/dL [facility] MCV Auto Entitic volume (RBC) 110.[address] fL [address] [facility] Monocytes Auto #/vol (Bld) 0.5 10*3/uL Invalid Interpretation Code [facility] Monocytes/100 WBC Auto (Bld) 8.1 % Invalid Interpretation Code [facility] Neutrophils Auto #/vol (Bld) 2.9 10*3/uL Invalid Interpretation Code [facility] Platelet mean volume Auto Entitic volume (Bld) 10.2 fL Invalid Interpretation Code [facility] Platelets Auto #/vol (Bld) 169 10*3/uL Invalid Interpretation Code [facility] RBC Auto #/vol (Bld) 3.94 10*6/uL Low [facility] Segmented Neut 47.2 % Invalid Interpretation Code [facility] WBC Auto #/vol (Bld) 6.1 10*3/uL Invalid Interpretation Code [facility] CBC with Diffon 09-19-2018 Basophils #/vol (Bld) 0.1 K/mcL Normal 0-0.2 [facility] Comment on above: Performed By: #### F ERR, LYTES, CALCM, BUNCR, IRON, TFERR, ALB, PHOS, PTHI #### Unless otherwise noted, all testing performed by [place] [address] CLIA: [id number] Drawer In [employer]: Eric Moser M.D. Basophils/100 WBC (Bld) 2.0 % Normal O [facility] Comment on above: Performed By: #### F ERR, LYTES, CALCM, BUNCR, IRON, TFERR, ALB, PHOS, PTHI #### Unless otherwise noted, all testing performed by [place] [address] CLIA: [id number] Drawer In [employer]: Eric Moser M.D. Eosinophils #/vol (Bld) 0.2 K/mcL Normal 0-0.5 [facility] Comment on above: Performed By: #### F ERR, LYTES, CALCM, BUNCR, IRON, TFERR, ALB, PHOS, PTHI #### Unless otherwise noted, all testing performed by [place] [address] CLIA: [id number] Drawer In [employer]: Eric Moser M.D. Eosinophils/100 WBC (Bld) 3.8 % Normal [facility] Comment on above: Performed By: #### F ERR, LYTES, CALCM, BUNCR, IRON, TFERR, ALB, PHOS, PTHI #### Unless otherwise noted, all testing performed by [place] [address] CLIA: [id number] Drawer In [employer]: Eric Moser M.D. Erythrocyte distribution width Ratio (RBC) 13.4 % Normal 10-14.3 [facility] Comment on above: Performed By: #### F ERR, LYTES, CALCM, BUNCR, IRON, TFERR, ALB, PHOS, PTHI #### Unless otherwise noted, all testing performed by [place] [address] CLIA: [id number] Drawer In [employer]: Eric Moser M.D. Hematocrit Volume Fraction (Bld) 43.6 % Normal 37.9-49.2 [facility] Comment on above: Performed By: #### F ERR, LYTES, CALCM, BUNCR, IRON, TFERR, ALB, PHOS, PTHI #### Unless otherwise noted, all testing performed by [place] [address] CLIA: [id number] Drawer In [employer]: Eric Moser M.D. Hemoglobin mass conc (Bld) 14.8 g/dL Normal 12.9-16.9 [facility] Comment on above: Performed By: #### F ERR, LYTES, CALCM, BUNCR, IRON, TFERR, ALB, PHOS, PTHI #### Unless otherwise noted, all testing performed by [place] [address] CLIA: [id number] Drawer In [employer]: Eric Moser M.D. Lymphocytes #/vol (Bld) 2.4 K/mcL Normal 0.9-3.6 [facility] Comment on above: Performed By: #### F ERR, LYTES, CALCM, BUNCR, IRON, TFERR, ALB, PHOS, PTHI #### Unless otherwise noted, all testing performed by [place] [address] CLIA: [id number] Drawer In [employer]: Eric Moser M.D. Lymphocytes/100 WBC (Bld) 38.9 % Normal [facility] Comment on above: Performed By: #### F ERR, LYTES, CALCM, BUNCR, IRON, TFERR, ALB, PHOS, PTHI #### Unless otherwise noted, all testing performed by [place] [address] CLIA: [id number] Drawer In [employer]: Eric Moser M.D. MCH Entitic mass (RBC) 37.6 pg High 27.7-34.6 [facility] Comment on above: Performed By: #### F ERR, LYTES, CALCM, BUNCR, IRON, TFERR, ALB, PHOS, PTHI #### Unless otherwise noted, all testing performed by [place] [address] CLIA: [id number] Drawer In [employer]: Eric Moser M.D. MCHC mass conc (RBC) 34.0 g/dL Normal 32.9-35.5 [facility] Comment on above: Performed By: #### F ERR, LYTES, CALCM, BUNCR, IRON, TFERR, ALB, PHOS, PTHI #### Unless otherwise noted, all testing performed by [place] [address] CLIA: [id number] Drawer In [employer]: Eric Moser M.D. MCV Entitic volume (RBC) 110.7 fL High 82.8-99.3 [facility] Comment on above: Performed By: #### F ERR, LYTES, CALCM, BUNCR, IRON, TFERR, ALB, PHOS, PTHI #### Unless otherwise noted, all testing performed by [place] [phone] CLIA: [id number] Drawer In [employer]: Eric Moser M.D. Monocytes #/vol (Bld) 0.5 K/mcL Normal 0.2-0.6 [facility] Comment on above: Performed By: #### F ERR, LYTES, CALCM, BUNCR, IRON, TFERR, ALB, PHOS, PTHI #### Unless otherwise noted, all testing performed by [place] [phone] CLIA: [id number] Drawer In [employer]: Eric Moser M.D. Monocytes/100 WBC (Bld) 8.1 % Normal [facility] Comment on above: Performed By: #### F ERR, LYTES, CALCM, BUNCR, IRON, TFERR, ALB, PHOS, PTHI #### Unless otherwise noted, all testing performed by [place] [address] CLIA: [id number] Drawer In [employer]: Eric Moser M.D. Neutrophils #/vol (Bld) 2.9 K/mcL Normal 1.4-6.8 [facility] Comment on above: Performed By: #### F ERR, LYTES, CALCM, BUNCR, IRON, TFERR, ALB, PHOS, PTHI #### Unless otherwise noted, all testing performed by [place] [address] CLIA: [id number] Drawer In Dobby Loom: Eric Moser M.D. Platelet mean volume Entitic volume (Bld) 10.2 fL Normal 6.6-10.8 [facility] Comment on above: Performed By: #### F ERR, LYTES, CALCM, BUNCR, IRON, TFERR, ALB, PHOS, PTHI #### Unless otherwise noted, all testing performed by [place] [address] CLIA: [id number] Drawer In D[employer]oom: Eric Moser M.D. Platelets #/vol (Bld) 169 K/mcL Normal 139-354 [facility] Comment on above: Performed By: #### F ERR, LYTES, CALCM, BUNCR, IRON, TFERR, ALB, PHOS, PTHI #### Unless otherwise noted, all testing performed by [place] [address] CLIA: [id number] Drawer In D[employer]oom: Eric Moser M.D. RBC #/vol (Bld) 3.94 M/mcL Low 4.0-5.5 [facility] Comment on above: Performed By: #### F ERR, LYTES, CALCM, BUNCR, IRON, TFERR, ALB, PHOS, PTHI #### Unless otherwise noted, all testing performed by [place] [address] CLIA: [id number] Drawer In [employer]oom: Eric Moser M.D. Segmented Neut % 47.2 % Normal [facility] Comment on above: Performed By: #### F ERR, LYTES, CALCM, BUNCR, IRON, TFERR, ALB, PHOS, PTHI #### Unless otherwise noted, all testing performed by [place] [address] CLIA: [id number] Drawer In [employer]oom: Eric Moser M.D. WBC #/vol (Bld) 6.1 K/mcL Normal 3.6-10.4 [facility] Comment on above: Performed By: #### F ERR, LYTES, CALCM, BUNCR, IRON, TFERR, ALB, PHOS, PTHI #### Unless otherwise noted, all testing performed by [place] [address] CLIA: [id number] Drawer In D[employer]oom: Eric Moser M.D. [facility] Metabolic [facility] 09-19-2018 Albumin mass conc 3.1 g/dL Low 3.2 - 5.2 g/dL [facility] ALP enzyme act/vol 59 U/L Invalid Interpretation Code 40 - 150 U/L [facility] ALT enzyme act/vol 33 U/L Invalid Interpretation Code 14 - 65 U/L [facility] Comment on above: This test result alfredo ht be falsely depressed or falsely elevated on samples drawn from patients taking Sulfasalazine and Sulfapyridine. Venipuncture should occur prior to taking either of these drugs. AST enzyme act/vol 29 U/L Invalid Interpretation Code 0 - 45 U/L [facility] Comment on above: This test result alfredo ht be falsely depressed or falsely elevated on samples drawn from patients taking Sulfasalazine and Sulfapyridine. Venipuncture should occur prior to taking either of these drugs. Bilirubin mass conc 0.3 mg/dL Invalid Interpretation Code 0.3 - 1.2 mg/dL [facility] Calcium mass conc 9.2 mg/dL Invalid Interpretation Code 8.4 - 10.2 mg/dL [facility] Chloride molar conc 106 mmol/L Invalid Interpretation Code 98 - 108 mmol/L [facility] CO2 molar conc 26 mmol/L Invalid Interpretation Code 21 - 32 mmol/L [facility] Creatinine mass conc 1.14 mg/dL Invalid Interpretation Code 0.8 - 1.3 mg/dL [facility] GFR/1.73 sq M predicted among blacks MDRD vol rate/area (S/P/Bld) mL/min/{1.73_m2} Invalid Interpretation Code ml/min/1.73s q.m [facility] Comment on above: GFR Calc GFR/1.73 sq M predicted among non-blacks MDRD vol rate/area (S/P/Bld) mL/min/{1.73_m2} Invalid Interpretation Code ml/min/1.73s q.m [facility] Comment on above: Non- GFR Calc eGFR is an estimated Glomerular Filtration Rate based on the value of the patient's serum creatinine. In outpatients, eGFR should be used as a helpful tool in screening for CKD. In inpatients or patients with acute renal failure, eGFR represents the GFR at the moment of the draw and should be used with caution. Glucose mass conc 105 mg/dL High 70 - 99 mg/dL [facility] Comment on above: This test result alfredo ht be falsely depressed or falsely elevated on samples drawn from patients taking Sulfasalazine and Sulfapyridine. Venipuncture should occur prior to taking either of these drugs. Interpretation and review of laboratory results Abnormal Invalid Interpretation Code [facility] Potassium molar conc 3.9 mmol/L Invalid Interpretation Code 3.5 - 5.1 mmol/L [facility] Protein mass conc 6.8 g/dL Invalid Interpretation Code 6 - 8 g/dL [facility] Sodium molar conc 139 mmol/L Invalid Interpretation Code 135 - 145 mmol/L [facility] Urea nitrogen mass conc 19 mg/dL Invalid Interpretation Code 8 - 25 mg/dL [facility] Albumin mass conc 3.1 g/dL Low 3.2-5.2 [facility] Comment on above: Performed By: #### F ERR, LYTES, CALCM, BUNCR, IRON, TFERR, ALB, PHOS, PTHI #### Unless otherwise noted, all testing performed by [facility] [place] [address] CLIA: [id number] Drawer In [employer]oom: Eric Moser M.D. ALP enzyme act/vol 59 U/L Normal 40-150 [facility] Comment on above: Performed By: #### F ERR, LYTES, CALCM, BUNCR, IRON, TFERR, ALB, PHOS, PTHI #### Unless otherwise noted, all testing performed by [place] [address] CLIA: [id number] Drawer In [employer]: Eric Moser M.D. ALT enzyme act/vol 33 U/L Normal 14-65 [facility] Comment on above: Result Comment: This test result might be falsely depressed or falsely elevated on samples drawn from patients taking Sulfasalazine and Sulfapyridine. Venipuncture should occur prior to taking either of these drugs. Performed By: #### F ERR, LYTES, CALCM, BUNCR, IRON, TFERR, ALB, PHOS, PTHI #### Unless otherwise noted, all testing performed by [place] [phone] CLIA: [id number] Drawer In [employer]oom: Eric Moser M.D. AST enzyme act/vol 29 U/L Normal 0-45 [facility] Comment on above: Result Comment: This test result might be falsely depressed or falsely elevated on samples drawn from patients taking Sulfasalazine and Sulfapyridine. Venipuncture should occur prior to taking either of these drugs. Performed By: #### F ERR, LYTES, CALCM, BUNCR, IRON, TFERR, ALB, PHOS, PTHI #### Unless otherwise noted, all testing performed by [place] [address] CLIA: [id number] Drawer In [employer]: Eric Shanti, M.D. Bilirubin mass conc 0.3 mg/dL Normal 0.3-1.2 [facility] Comment on above: Performed By: #### F ERR, LYTES, CALCM, BUNCR, IRON, TFERR, ALB, PHOS, PTHI #### Unless otherwise noted, all testing performed by [place] [address] CLIA: [id number] Drawer In [employer]: Eric Moser M.D. Calcium mass conc 9.2 mg/dL Normal 8.4-10.2 [facility] Comment on above: Performed By: #### F ERR, LYTES, CALCM, BUNCR, IRON, TFERR, ALB, PHOS, PTHI #### Unless otherwise noted, all testing performed by [place] [address] CLIA: [id number] Drawer In [employer]: Eric Moser M.D. Chloride molar conc 106 mmol/L Normal 98-108 [facility] Comment on above: Performed By: #### F ERR, LYTES, CALCM, BUNCR, IRON, TFERR, ALB, PHOS, PTHI #### Unless otherwise noted, all testing performed by [place] [address] CLIA: [id number] Drawer In [employer]: Eric Moser M.D. CO2 molar conc 26 mmol/L Normal 21-32 [facility] Comment on above: Performed By: #### F ERR, LYTES, CALCM, BUNCR, IRON, TFERR, ALB, PHOS, PTHI #### Unless otherwise noted, all testing performed by [place] [address] CLIA: [id number] Drawer In [employer]: Eric Moser M.D. Creatinine mass conc 1.14 mg/dL Normal 0.80-1.30 [facility] Comment on above: Performed By: #### F ERR, LYTES, CALCM, BUNCR, IRON, TFERR, ALB, PHOS, PTHI #### Unless otherwise noted, all testing performed by [place] [address] CLIA: [id number] Drawer In [employer]: Eric Moser M.D. GFR/1.73 sq M predicted among blacks MDRD vol rate/area (S/P/Bld) mL/min/{1.73_m2} Normal [facility] Comment on above: Result Comment: Afri can [place] GFR Calc Performed By: #### F ERR, LYTES, CALCM, BUNCR, IRON, TFERR, ALB, PHOS, PTHI #### Unless otherwise noted, all testing performed by [place] [address] CLIA: [id number] Drawer In [employer]: Eric Moser M.D. GFR/1.73 sq M predicted among non-blacks MDRD vol rate/area (S/P/Bld) mL/min/{1.73_m2} Normal [facility] Comment on above: Result Comment: Non- GFR Calc eGFR is an estimated Glomerular Filtration Rate based on the value of the patient's serum creatinine. In outpatients, eGFR should be used as a helpful tool in screening for CKD. In inpatients or patients with acute renal failure, eGFR represents the GFR at the moment of the draw and should be used with caution. Performed By: #### F ERR, LYTES, CALCM, BUNCR, IRON, TFERR, ALB, PHOS, PTHI #### Unless otherwise noted, all testing performed by [place] [address] CLIA: [id number] Drawer In [employer]: Eric Moser M.D. Glucose mass conc 105 mg/dL High 70-99 [facility] Comment on above: Result Comment: This test result might be falsely depressed or falsely elevated on samples drawn from patients taking Sulfasalazine and Sulfapyridine. Venipuncture should occur prior to taking either of these drugs. Performed By: #### F ERR, LYTES, CALCM, BUNCR, IRON, TFERR, ALB, PHOS, PTHI #### Unless otherwise noted, all testing performed by [place] [address] CLIA: [id number] Drawer In [employer]: Eric Moser M.D. Potassium molar conc 3.9 mmol/L Normal 3.5-5.1 [facility] Comment on above: Performed By: #### F ERR, LYTES, CALCM, BUNCR, IRON, TFERR, ALB, PHOS, PTHI #### Unless otherwise noted, all testing performed by [place] [address] CLIA: [id number] Drawer In [employer]: Eric Moser M.D. Protein mass conc 6.8 g/dL Normal 6.0-8.0 [facility] Comment on above: Performed By: #### F ERR, LYTES, CALCM, BUNCR, IRON, TFERR, ALB, PHOS, PTHI #### Unless otherwise noted, all testing performed by [place] [address] CLIA: [id number] Drawer In [employer]: Eric Moser M.D. Sodium molar conc 139 mmol/L Normal 135-145 [facility] Comment on above: Performed By: #### F ERR, LYTES, CALCM, BUNCR, IRON, TFERR, ALB, PHOS, PTHI #### Unless otherwise noted, all testing performed by [place] [address] CLIA: [id number] Drawer In Dobby [employer]oom: Eric Moser M.D. Urea nitrogen mass conc 19 mg/dL Normal 8-25 [facility] Comment on above: Performed By: #### F ERR, LYTES, CALCM, BUNCR, IRON, TFERR, ALB, PHOS, PTHI #### Unless otherwise noted, all testing performed by [place] [address] CLIA: [id number] Drawer In [employer]: Eric Moser M.D. Ferritinon 09-19-2018 Ferritin [Mass/volume] in Serum or Plasma 76 ng/mL Invalid Interpretation Code 30 - 400 ng/mL [facility] Comment on above: Samples from patient s routinely receiving high dose biotin therapy (100-300 mg/day) may show falsely decreased results. Please correlate clinically. Ferritin mass conc 76 ng/mL Normal 30-400 [facility] Comment on above: Result Comment: Samp les from patients routinely receiving high dose biotin therapy (100-300 mg/day) may show falsely decreased results. Please correlate clinically. Performed By: #### F ERR, LYTES, CALCM, BUNCR, IRON, TFERR, ALB, PHOS, PTHI #### Unless otherwise noted, all testing performed by [place] [address] CLIA: [id number] Drawer In [employer]: Eric Moser M.D. Reticulocyteon 09-19-2018 Reticulocytes 1.42 % Invalid Interpretation Code 0.5 - 1.7 % [facility] Reticulocyte 1.42 % Normal 0.5-1.7 [facility] Comment on above: Performed By: #### F ERR, LYTES, CALCM, BUNCR, IRON, TFERR, ALB, PHOS, PTHI #### Unless otherwise noted, all testing performed by [place] [address] CLIA: [id number] Drawer In [employer]: Eric Moser M.D. SPINE LUMBAR 2 OR 3 VIEWSon 09-19-2018 SPINE LUMBAR 2 OR 3 VIEWS Final Report Accession No: [id number] Performed: Sep 19 2018 11:51AM Examination: SPINE LUMBAR 2 OR 3 VIEWS LUMBAR SPINE, 09/19/2018: INDICATION: Pain. No known trauma. COMPARISON: None FINDINGS: AP, lateral, and cone down lateral views of the lumbar spine were obtained. 3 radiographs in total. There are 5 nonrib-bearing lumbar-type vertebral bodies. There is no acute fracture or malalignment. There is mild to moderate multilevel degenerative disc disease and degenerative facet arthropathy with marginal osteophytosis at L3-L4. Osseous structures are slightly demineralized. Sacroiliac joints appear unremarkable. There is atherosclerotic disease of the abdominal aorta. IMPRESSION: 1. No acute fracture or malalignment. 2. Mild to moderate multilevel spondylosis. 3. Atherosclerotic disease of the abdominal aorta. Interpreting Physician: JIGNESH DONALD M.D. Trans: istumb : cc: Normal [facility] Albuminon 07-02-2018 Albumin mass conc 3.4 g/dL Normal 3.2-5.2 [facility] Comment on above: Performed By: #### F ERR, LYTES, CALCM, BUNCR, IRON, TFERR, ALB, PHOS, PTHI #### Unless otherwise noted, all testing performed by [address] [address] CLIA: [id number] Drawer In D[employer]oom: Eric Moser M.D. Albumin mass conc 3.4 g/dL Invalid Interpretation Code 3.2 - 5.2 g/dL [facility] BUN and Creatinineon 018 Creatinine mass conc 1.14 mg/dL Normal 0.80-1.30 [facility] Comment on above: Performed By: #### F ERR, LYTES, CALCM, BUNCR, IRON, TFERR, ALB, PHOS, PTHI #### Unless otherwise noted, all testing performed by [place] [address] CLIA: [id number] Drawer In [employer]: Eric Moser M.D. GFR/1.73 sq M predicted among blacks MDRD vol rate/area (S/P/Bld) mL/min/{1.73_m2} [facility] Comment on above: Result Comment: Afri can [place] GFR Calc Performed By: #### F ERR, LYTES, CALCM, BUNCR, IRON, TFERR, ALB, PHOS, PTHI #### Unless otherwise noted, all testing performed by [place] [address] CLIA: [id number] Drawer In D[employer]oom: Eric Moser M.D. GFR/1.73 sq M predicted among non-blacks MDRD vol rate/area (S/P/Bld) mL/min/{1.73_m2} Normal [facility] Comment on above: Result Comment: Non- GFR Calc eGFR is an estimated Glomerular Filtration Rate based on the value of the patient's serum creatinine. In outpatients, eGFR should be used as a helpful tool in screening for CKD. In inpatients or patients with acute renal failure, eGFR represents the GFR at the moment of the draw and should be used with caution. Performed By: #### F ERR, LYTES, CALCM, BUNCR, IRON, TFERR, ALB, PHOS, PTHI #### Unless otherwise noted, all testing performed by [place] [address] CLIA: [id number] Drawer In [employer]: Eric Moser M.D. Urea nitrogen mass conc 21 mg/dL Normal 8-25 [facility] Comment on above: Performed By: #### F ERR, LYTES, CALCM, BUNCR, IRON, TFERR, ALB, PHOS, PTHI #### Unless otherwise noted, all testing performed by [facility] [place] [address] CLIA: [id number] Drawer In D[employer]: Eric Moser M.D. Calciumon 07-02-2018 Calcium mass conc 8.7 mg/dL Normal 8.4-10.2 [facility] Comment on above: Performed By: #### F ERR, LYTES, CALCM, BUNCR, IRON, TFERR, ALB, PHOS, PTHI #### Unless otherwise noted, all testing performed by [place] [address] CLIA: [id number] Drawer In [employer]: Eric Moser M.D. Calcium Levelon 07-02-2018 Calcium mass conc 8.7 mg/dL Invalid Interpretation Code 8.4 - 10.2 mg/dL [facility] Electrolyte Panelon 07-02-20 18 Chloride molar conc 108 mmol/L Invalid Interpretation Code 98 - 108 mmol/L [facility] CO2 molar conc 16 mmol/L Low 21 - 32 mmol/L [facility] Interpretation and review of laboratory results Abnormal Invalid Interpretation Code [facility] Potassium molar conc 4.2 mmol/L Invalid Interpretation Code 3.5 - 5.1 mmol/L [facility] Sodium molar conc 141 mmol/L Invalid Interpretation Code 135 - 145 mmol/L [facility] Electrolyteson 07-02-2018 Chloride molar conc 108 mmol/L Normal 98-108 [facility] Comment on above: Performed By: #### F ERR, LYTES, CALCM, BUNCR, IRON, TFERR, ALB, PHOS, PTHI #### Unless otherwise noted, all testing performed by [place] [address] CLIA: [id number] Drawer In [employer]: Eric Moser M.D. CO2 molar conc 16 mmol/L Low 21-32 [facility] Comment on above: Performed By: #### F ERR, LYTES, CALCM, BUNCR, IRON, TFERR, ALB, PHOS, PTHI #### Unless otherwise noted, all testing performed by [place] [address] CLIA: [id number] Drawer In D[employer]: Eric Moser M.D. Potassium molar conc 4.2 mmol/L Normal 3.5-5.1 [facility] Comment on above: Performed By: #### F ERR, LYTES, CALCM, BUNCR, IRON, TFERR, ALB, PHOS, PTHI #### Unless otherwise noted, all testing performed by [place] [address] CLIA: [id number] Drawer In D[employer]: Eric Moser M.D. Sodium molar conc 141 mmol/L Normal 135-145 [facility] Comment on above: Performed By: #### F ERR, LYTES, CALCM, BUNCR, IRON, TFERR, ALB, PHOS, PTHI #### Unless otherwise noted, all testing performed by [place] [address] CLIA: [id number] Drawer In [employer]: Eric Moser M.D. Hemoglobin and Hematocriton 07-02-2018 Hematocrit Auto Volume Fraction (Bld) 41.0 % Invalid Interpretation Code 37.9 - 49.2 % [facility] Hemoglobin mass conc (Bld) 13.9 g/dL Invalid Interpretation Code 12.9 - 16.9 g/dL [facility] Hgb and Hcton 07-02-2018 Hematocrit Volume Fraction (Bld) 41.0 % Normal 37.9-49.2 [facility] Comment on above: Performed By: #### F ERR, LYTES, CALCM, BUNCR, IRON, TFERR, ALB, PHOS, PTHI #### Unless otherwise noted, all testing performed by [place] [address] CLIA: [id number] Drawer In [employer]: Eric Moser M.D. Hemoglobin mass conc (Bld) 13.9 g/dL Normal 12.9-16.9 [facility] Comment on above: Performed By: #### F ERR, LYTES, CALCM, BUNCR, IRON, TFERR, ALB, PHOS, PTHI #### Unless otherwise noted, all testing performed by [place] [address] CLIA: [id number] Drawer In [employer]: Eric Moser M.D. Magnesiumon 07-02-2018 Magnesium mass conc 1.7 mg/dL Normal 1.6-2.4 [facility] Comment on above: Performed By: #### F ERR, LYTES, CALCM, BUNCR, IRON, TFERR, ALB, PHOS, PTHI #### Unless otherwise noted, all testing performed by [place] [address] CLIA: [id number] Drawer In [employer]: Eric Moser M.D. Magnesium Levelon 07-02-2018 Magnesium mass conc 1.7 mg/dL Invalid Interpretation Code 1.6 - 2.4 mg/dL [facility] Parathyroid Hormoneon 2017 Parathyroid Hormone 15.9 pg/mL Low 18.4-80.1 [facility] Comment on above: Result Comment: Samp les from patients routinely receiving high dose biotin therapy may show falsely depressed results. Additional information may be required for diagnosis. Performed By: #### F ERR, LYTES, CALCM, BUNCR, IRON, TFERR, ALB, PHOS, PTHI #### Unless otherwise noted, all testing performed by [place] [address] CLIA: [id number] Drawer In [employer]: Eric Moser M.D. Interpretation and review of laboratory results Abnormal Invalid Interpretation Code [facility] Parathyroid Hormone 15.9 pg/mL Low 18.4 - 8 0.1 pg/mL [facility] Comment on above: Samples from patient s routinely receiving high dose biotin therapy may show falsely depressed results. Additional information may be required for diagnosis. Phosphoruson 07-02-2018 Phosphate mass conc 3.7 mg/dL Normal 2.3-3.7 [facility] Comment on above: Performed By: #### F ERR, LYTES, CALCM, BUNCR, IRON, TFERR, ALB, PHOS, PTHI #### Unless otherwise noted, all testing performed by [place] [address] CLIA: [id number] Drawer In D[employer]: Eric Moser M.D. Phosphate mass conc 3.7 mg/dL Invalid Interpretation Code 2.3 - 3.7 mg/dL [facility] Protein Panel, Urineon 07-02 Creatinine, Urine Random 161.00 mg/dL Normal [facility] Comment on above: Result Comment: No e stablished reference range. Performed By: #### F ERR, LYTES, CALCM, BUNCR, IRON, TFERR, ALB, PHOS, PTHI #### Unless otherwise noted, all testing performed by [place] [address] CLIA: [id number] Drawer In [employer]: Eric Moser M.D. Protein Creatinine Ratio 3.66 High 0.0-0.2 [facility] Comment on above: Performed By: #### F ERR, LYTES, CALCM, BUNCR, IRON, TFERR, ALB, PHOS, PTHI #### Unless otherwise noted, all testing performed by [place] [address] CLIA: [id number] Drawer In [employer]: Eric Moser M.D. Protein mass conc (U) 589.2 mg/dL Normal [facility] Comment on above: Performed By: #### F ERR, LYTES, CALCM, BUNCR, IRON, TFERR, ALB, PHOS, PTHI #### Unless otherwise noted, all testing performed by [place] [address] CLIA: [id number] Drawer In D[employer]oom: Eric Moser M.D. Creatinine, Urine Random 161.00 mg/dL Invalid Interpretation Code [facility] Comment on above: No established refer ence range. Interpretation and review of laboratory results Abnormal Invalid Interpretation Code [facility] Protein, Urine Random 589.2 mg/dL Invalid Interpretation Code [facility] Protein/Creatinine Ratio, Urine 3.[address] [facility] CBC and Differentialon 05-10 Basophils Auto #/vol (Bld) 0.1 K/mcL Invalid Interpretation Code 0 - 0.[address] [facility] Basophils/100 WBC Auto (Bld) 1.5 % Invalid Interpretation Code [facility] Eosinophils 0.2 K/mcL Invalid Interpretation Code 0 - 0.[address] [facility] Eosinophils/100 leukocytes 3.1 % Invalid Interpretation Code [facility] Erythrocyte distribution width Auto Ratio (RBC) 14.4 % High 10 - 14.3 % [facility] Erythrocytes (RBC) 3.87 M/mcL Low 4.0 - 5.5 [facility] Hematocrit (HCT) 39.9 % Invalid Interpretation Code 37.9 - 49.2 % [facility] Hemoglobin mass conc (Bld) 13.6 g/dL Normal 12.9-16.[address] [facility] Comment on above: Performed By: #### F ERR, LYTES, CALCM, BUNCR, IRON, TFERR, ALB, PHOS, PTHI #### Unless otherwise noted, all testing performed by [address] [place] [address] CLIA: [id number] Drawer In D[employer]oom: Eric Moser M.D. Interpretation and review of laboratory results Abnormal Invalid Interpretation Code [facility] Lymphocytes 2.3 K/mcL Invalid Interpretation Code 0.9 - 3.[address] [facility] Lymphocytes/100 leukocytes 36.0 % Invalid Interpretation Code [facility] MCH 35.1 pg High 27.7 - 34.[address] [facility] MCHC mass conc (RBC) 34.1 g/dL Invalid Interpretation Code 32.9 - 35.5 g/dL [facility] MCV 103 fL High 82.8 - 99.[address] [facility] Monocytes 0.6 K/mcL Invalid Interpretation Code 0.2 - 0.[address] [facility] Monocytes/100 leukocytes 10.3 % Invalid Interpretation Code [facility] Neutrophils 3.1 K/mcL Invalid Interpretation Code 1.4 - 6.[address] [facility] Platelet mean volume (PMV) 9.8 fL Invalid Interpretation Code 6.6 - 10.[address] [facility] Platelets 159 K/mcL Invalid Interpretation Code 139 - [address] [facility] Segmented Neut 49.1 % Invalid Interpretation Code [facility] WBC (Leukocytes) 6.3 K/mcL Invalid Interpretation Code 3.6 - 10.[address] [facility] [facility] CBC with Diffon 05-10-2018 Basophils #/vol (Bld) 0.1 K/mcL Normal 0-0.2 [facility] Comment on above: Performed By: #### F ERR, LYTES, CALCM, BUNCR, IRON, TFERR, ALB, PHOS, PTHI #### Unless otherwise noted, all testing performed by [place] [address] CLIA: [id number] Drawer In Dobby Loom: Eric Moser M.D. Basophils/100 WBC (Bld) 1.5 % Normal O [facility] Comment on above: Performed By: #### F ERR, LYTES, CALCM, BUNCR, IRON, TFERR, ALB, PHOS, PTHI #### Unless otherwise noted, all testing performed by [place] [address] CLIA: [id number] Drawer In Dobby Loom: Eric Shanti, M.D. Eosinophils #/vol (Bld) 0.2 K/mcL Normal 0-0.5 O [facility] Comment on above: Performed By: #### F ERR, LYTES, CALCM, BUNCR, IRON, TFERR, ALB, PHOS, PTHI #### Unless otherwise noted, all testing performed by [place] [address] CLIA: [id number] Drawer In Dobby Loom: Eric Moser M.D. Eosinophils/100 WBC (Bld) 3.1 % Normal [facility] Comment on above: Performed By: #### F ERR, LYTES, CALCM, BUNCR, IRON, TFERR, ALB, PHOS, PTHI #### Unless otherwise noted, all testing performed by [place] [address] CLIA: [id number] Drawer In Dobby Loom: Eric Moser M.D. Erythrocyte distribution width Ratio (RBC) 14.4 % High 10-14.3 [facility] Comment on above: Performed By: #### F ERR, LYTES, CALCM, BUNCR, IRON, TFERR, ALB, PHOS, PTHI #### Unless otherwise noted, all testing performed by [place] [address] CLIA: [id number] Drawer In D[employer] Loom: Eric Moser M.D. Hematocrit Volume Fraction (Bld) 39.9 % Normal 37.9-49.2 [facility] Comment on above: Performed By: #### F ERR, LYTES, CALCM, BUNCR, IRON, TFERR, ALB, PHOS, PTHI #### Unless otherwise noted, all testing performed by [place] [address] CLIA: [id number] Drawer In Dobby Loom: Eric Moser M.D. Lymphocytes #/vol (Bld) 2.3 K/mcL Normal 0.9-3.6 [facility] Comment on above: Performed By: #### F ERR, LYTES, CALCM, BUNCR, IRON, TFERR, ALB, PHOS, PTHI #### Unless otherwise noted, all testing performed by [place] [address] CLIA: [id number] Drawer In Dobby Loom: Eric Moser M.D. Lymphocytes/100 WBC (Bld) 36.0 % Normal [facility] Comment on above: Performed By: #### F ERR, LYTES, CALCM, BUNCR, IRON, TFERR, ALB, PHOS, PTHI #### Unless otherwise noted, all testing performed by [place] [address] CLIA: [id number] Drawer In Dobby Loom: Eric Moser M.D. MCH Entitic mass (RBC) 35.1 pg High 27.7-34.6 [facility] Comment on above: Performed By: #### F ERR, LYTES, CALCM, BUNCR, IRON, TFERR, ALB, PHOS, PTHI #### Unless otherwise noted, all testing performed by [place] [address] CLIA: [id number] Drawer In Dobby Loom: Eric Moser M.D. MCHC mass conc (RBC) 34.1 g/dL Normal 32.9-35.5 [facility] Comment on above: Performed By: #### F ERR, LYTES, CALCM, BUNCR, IRON, TFERR, ALB, PHOS, PTHI #### Unless otherwise noted, all testing performed by [place] [address] CLIA: [id number] Drawer In Dobby Loom: Eric Moser M.D. MCV Entitic volume (RBC) 103.0 fL High 82.8-99.3 [facility] Comment on above: Performed By: #### F ERR, LYTES, CALCM, BUNCR, IRON, TFERR, ALB, PHOS, PTHI #### Unless otherwise noted, all testing performed by [place] [phone] CLIA: [id number] Drawer In Dobby Loom: Eric Moser M.D. Monocytes #/vol (Bld) 0.6 K/mcL Normal 0.2-0.6 [facility] Comment on above: Performed By: #### F ERR, LYTES, CALCM, BUNCR, IRON, TFERR, ALB, PHOS, PTHI #### Unless otherwise noted, all testing performed by [place] [phone] CLIA: [id number] Drawer In Dobby Loom: Eric Moser M.D. Monocytes/100 WBC (Bld) 10.3 % Normal [facility] Comment on above: Performed By: #### F ERR, LYTES, CALCM, BUNCR, IRON, TFERR, ALB, PHOS, PTHI #### Unless otherwise noted, all testing performed by [place] [phone] CLIA: [id number] Drawer In Dobby Loom: Eric Moser M.D. Neutrophils #/vol (Bld) 3.1 K/mcL Normal 1.4-6.8 [facility] Comment on above: Performed By: #### F ERR, LYTES, CALCM, BUNCR, IRON, TFERR, ALB, PHOS, PTHI #### Unless otherwise noted, all testing performed by [place] [address] CLIA: [id number] Drawer In Dobby Loom: Eric Moser M.D. Platelet mean volume Entitic volume (Bld) 9.8 fL Normal 6.6-10.8 [facility] Comment on above: Performed By: #### F ERR, LYTES, CALCM, BUNCR, IRON, TFERR, ALB, PHOS, PTHI #### Unless otherwise noted, all testing performed by [place] [address] CLIA: [id number] Drawer In Dobby Loom: Eric Moser M.D. Platelets #/vol (Bld) 159 K/mcL Normal 139-354 [facility] Comment on above: Performed By: #### F ERR, LYTES, CALCM, BUNCR, IRON, TFERR, ALB, PHOS, PTHI #### Unless otherwise noted, all testing performed by [place] [address] CLIA: [id number] Drawer In Dobby Loom: Eric Moser M.D. RBC #/vol (Bld) 3.87 M/mcL Low 4.0-5.5 [facility] Comment on above: Performed By: #### F ERR, LYTES, CALCM, BUNCR, IRON, TFERR, ALB, PHOS, PTHI #### Unless otherwise noted, all testing performed by [place] [address] CLIA: [id number] Drawer In Dobby Loom: Eric Moser M.D. Segmented Neut % 49.1 % Normal [facility] Comment on above: Performed By: #### F ERR, LYTES, CALCM, BUNCR, IRON, TFERR, ALB, PHOS, PTHI #### Unless otherwise noted, all testing performed by [address] [address] CLIA: [id number] Drawer In Dobby Loom: Eric Moser M.D. WBC #/vol (Bld) 6.3 K/mcL Normal 3.6-10.4 [facility] Comment on above: Performed By: #### F ERR, LYTES, CALCM, BUNCR, IRON, TFERR, ALB, PHOS, PTHI #### Unless otherwise noted, all testing performed by [place] [address] CLIA: [id number] Drawer In Dobby Loom: Eric Moser M.D. [facility] 05-10-2018 Alanine aminotransferase (ALT) 30 U/L Normal 14-65 [facility] Comment on above: This test result alfredo ht be falsely depressed or falsely elevated on samples drawn from patients taking Sulfasalazine and Sulfapyridine. Venipuncture should occur prior to taking either of these drugs. Result Comment: This test result might be falsely depressed or falsely elevated on samples drawn from patients taking Sulfasalazine and Sulfapyridine. Venipuncture should occur prior to taking either of these drugs. Performed By: #### F ERR, LYTES, CALCM, BUNCR, IRON, TFERR, ALB, PHOS, PTHI #### Unless otherwise noted, all testing performed by [place] [address] CLIA: [id number] Drawer In Dobby Loom: Eric Moser M.D. Albumin 3.4 g/dL Normal 3.2-5.[address] [facility] Comment on above: Performed By: #### F ERR, LYTES, CALCM, BUNCR, IRON, TFERR, ALB, PHOS, PTHI #### Unless otherwise noted, all testing performed by [place] [address] CLIA: [id number] Drawer In Dobby Loom: Eric Moser M.D. Alkaline phosphatase (ALP) 48 U/L Normal 40-[address] [facility] Comment on above: Performed By: #### F ERR, LYTES, CALCM, BUNCR, IRON, TFERR, ALB, PHOS, PTHI #### Unless otherwise noted, all testing performed by [place] [address] CLIA: [id number] Drawer In Dobby Loom: Eric Moser M.D. Aspartate aminotransferase (AST) 26 U/L Normal 0-45 [facility] Comment on above: This test result alfredo ht be falsely depressed or falsely elevated on samples drawn from patients taking Sulfasalazine and Sulfapyridine. Venipuncture should occur prior to taking either of these drugs. Result Comment: This test result might be falsely depressed or falsely elevated on samples drawn from patients taking Sulfasalazine and Sulfapyridine. Venipuncture should occur prior to taking either of these drugs. Performed By: #### F ERR, LYTES, CALCM, BUNCR, IRON, TFERR, ALB, PHOS, PTHI #### Unless otherwise noted, all testing performed by [place] [phone] CLIA: [id number] Drawer In Dobby Loom: Eric Moser M.D. Bilirubin (total) 0.6 mg/dL Normal 0.3-1.2 [facility] Comment on above: Performed By: #### F ERR, LYTES, CALCM, BUNCR, IRON, TFERR, ALB, PHOS, PTHI #### Unless otherwise noted, all testing performed by [place] [phone] CLIA: [id number] Drawer In Dobby Loom: Eric Moser M.D. Calcium 9.2 mg/dL Normal 8.4-10.[address] [facility] Comment on above: Performed By: #### F ERR, LYTES, CALCM, BUNCR, IRON, TFERR, ALB, PHOS, PTHI #### Unless otherwise noted, all testing performed by [place] [address] CLIA: [id number] Drawer In Dobby Loom: Eric Moser M.D. Chloride 106 mmol/L Normal 98-[address] [facility] Comment on above: Performed By: #### F ERR, LYTES, CALCM, BUNCR, IRON, TFERR, ALB, PHOS, PTHI #### Unless otherwise noted, all testing performed by [place] [address] CLIA: [id number] Drawer In Dobby Loom: Eric Moser M.D. CO2 24 mmol/L Normal 21-[address] [facility] Comment on above: Performed By: #### F ERR, LYTES, CALCM, BUNCR, IRON, TFERR, ALB, PHOS, PTHI #### Unless otherwise noted, all testing performed by [place] [address] CLIA: [id number] Drawer In Dobby Loom: Eric Moser M.D. Creatinine 1.26 mg/dL Normal 0.80-1.[address] [facility] Comment on above: Performed By: #### F ERR, LYTES, CALCM, BUNCR, IRON, TFERR, ALB, PHOS, PTHI #### Unless otherwise noted, all testing performed by [place] [address] CLIA: [id number] Drawer In Dobby Loom: Eric Moser M.D. eGFR (black) mL/min/{1.73_m2} Normal [facility] Comment on above: GFR Calc Result Comment: Afri can [place] GFR Calc Performed By: #### F ERR, LYTES, CALCM, BUNCR, IRON, TFERR, ALB, PHOS, PTHI #### Unless otherwise noted, all testing performed by [address] [place] [address] CLIA: [id number] Drawer In Dobby Loom: Eric Moser M.D. eGFR (non-black) 57 mL/min/{1.73_m2} Low >[address] [facility] Comment on above: Non- GFR Calc eGFR is an estimated Glomerular Filtration Rate based on the value of the patient's serum creatinine. In outpatients, eGFR should be used as a helpful tool in screening for CKD. In inpatients or patients with acute renal failure, eGFR represents the GFR at the moment of the draw and should be used with caution. Result Comment: Non- GFR Calc eGFR is an estimated Glomerular Filtration Rate based on the value of the patient's serum creatinine. In outpatients, eGFR should be used as a helpful tool in screening for CKD. In inpatients or patients with acute renal failure, eGFR represents the GFR at the moment of the draw and should be used with caution. Performed By: #### F ERR, LYTES, CALCM, BUNCR, IRON, TFERR, ALB, PHOS, PTHI #### Unless otherwise noted, all testing performed by [place] [address] CLIA: [id number] Drawer In Dobby Loom: Eric Moser M.D. Glucose mass conc 81 mg/dL Normal 70-99 [facility] Comment on above: This test result alfredo ht be falsely depressed or falsely elevated on samples drawn from patients taking Sulfasalazine and Sulfapyridine. Venipuncture should occur prior to taking either of these drugs. Result Comment: This test result might be falsely depressed or falsely elevated on samples drawn from patients taking Sulfasalazine and Sulfapyridine. Venipuncture should occur prior to taking either of these drugs. Performed By: #### F ERR, LYTES, CALCM, BUNCR, IRON, TFERR, ALB, PHOS, PTHI #### Unless otherwise noted, all testing performed by [place] [address] CLIA: [id number] Drawer In Dobby Loom: Eric Moser M.D. Potassium molar conc 4.5 mmol/L Normal 3.5-5.1 [facility] Comment on above: Performed By: #### F ERR, LYTES, CALCM, BUNCR, IRON, TFERR, ALB, PHOS, PTHI #### Unless otherwise noted, all testing performed by [place] [address] CLIA: [id number] Drawer In Dobby Loom: Eric Moser M.D. Protein 7.0 g/dL Normal 6.0-8.[address] [facility] Comment on above: Performed By: #### F ERR, LYTES, CALCM, BUNCR, IRON, TFERR, ALB, PHOS, PTHI #### Unless otherwise noted, all testing performed by [place] [address] CLIA: [id number] Drawer In Dobby Loom: Eric Moser M.D. Sodium 140 mmol/L Normal 135-[address] [facility] Comment on above: Performed By: #### F ERR, LYTES, CALCM, BUNCR, IRON, TFERR, ALB, PHOS, PTHI #### Unless otherwise noted, all testing performed by [place] [address] CLIA: [id number] Drawer In Dobby Loom: Eric Moser M.D. Urea nitrogen 19 mg/dL Normal 8-[address] [facility] Comment on above: Performed By: #### F ERR, LYTES, CALCM, BUNCR, IRON, TFERR, ALB, PHOS, PTHI #### Unless otherwise noted, all testing performed by [place] [address] CLIA: [id number] Drawer In Dobby Loom: Eric Moser M.D. Ferritinon 05-10-2018 Ferritin 58 ng/mL Invalid Interpretation Code 30 - 400 ng/mL [facility] Comment on above: Samples from patient s routinely receiving high dose biotin therapy (100-300 mg/day) may show falsely decreased results. Please correlate clinically. Ferritin mass conc 58 ng/mL Normal 30-400 [facility] Comment on above: Result Comment: Samp les from patients routinely receiving high dose biotin therapy (100-300 mg/day) may show falsely decreased results. Please correlate clinically. Performed By: #### F ERR, LYTES, CALCM, BUNCR, IRON, TFERR, ALB, PHOS, PTHI #### Unless otherwise noted, all testing performed by [place] [address] CLIA: [id number] Drawer In Dobby Loom: Eric Moser M.D. Reticulocyteon 05-10-2018 Reticulocyte 1.72 % High 0.5-1.7 [facility] Comment on above: Performed By: #### F ERR, LYTES, CALCM, BUNCR, IRON, TFERR, ALB, PHOS, PTHI #### Unless otherwise noted, all testing performed by [place] [address] CLIA: [id number] Drawer In Dobby Loom: Eric Moser M.D. Reticulocytes 1.72 % High 0.5 - 1.7 % [facility] Segmental doppler lower extr emity arterialon 05-07-2018 Segmental doppler lower extremity arterial Non-Invasive Vascular Patient: TONIO Oseguera [facility] Rec#: [id number] (Age): 1950(68y) Study Date: 05/07/2018 Room#: Type: Outpatient Sex: M Reading: Tristen Menjivar MD, RPVI Referring: Tristen Menjivar MD Enrollment Representative: Michelle Osei RVT Procedure Info: [id number] Study Quality: Lower Arterial Doppler: adequate Diagnosis: I73.9 Peripheral vascular disease, unspecified Lower Arterial Doppler Conclusions Right ankle brachial index is normal. No evidence of small vessel disease at the digital level in the right foot. Left ankle brachial index indicates mild peripheral artery disease. Disease noted at the femoral popliteal level(s). No evidence of small vessel disease at the digital level in the left foot. No evidence of small vessel disease noted at the transmetatarsal level in the right foot. Toe brachial index is normal. Mild small vessel disease noted at the transmetatarsal level in the left foot. Toe brachial index is normal. The procedure was explained to the patient. The patient voiced understanding. Finding Grids Lower PVR Waveforms Right Left Thigh N N Calf N N Ankle N B Transmet N B Rasmussen --------- N = Normal B = Abnormal Toe PPG Waveforms Right Left 1st Digit N N Rasmussen --------- N = Normal Doppler Waveforms Right Left Common Femoral T B Popliteal T B Posterior Tibial T B Dorsalis Pedis T B Rasmussen --------- T = Triphasic B = Biphasic Measurements Right Pressures/Ratios Name Value Units Brachial 172 mmHg Thigh 218 mmHg Calf 208 mmHg Ankle (Posterior Tibial) 194 mmHg Ankle (Dorsalis Pedis) 189 mmHg Toe 184 mmHg CLEMENCIA 1.13 ratio TBI 1.06 ratio Left Pressures/Ratios Name Value Units Brachial 167 mmHg Thigh 166 mmHg Calf 148 mmHg Ankle (Posterior Tibial) 142 mmHg Ankle (Dorsalis Pedis) 144 mmHg Toe 132 mmHg CLEMENCIA 0.84 ratio TBI 0.76 ratio History Carotid Artery Stenosis. Diabetes. Endarterectomy. Hyperlipidemia. Hypertension. PAD. Tobacco Use-Current. Electronically signed at 05/07/2018 17:26:13 by: Tristen Menjivar MD, YASMIN Invalid Interpretation Code [facility] RAD Segmental doppler lower extremity arterial Interface, Rad In [facility] [place] [facility] - 05/07/2018 5:28 PM EDT Non-Invasive Vascular Patient: TONIO Oseguera [facility] Rec#: [id number] (Age): 1950(68y) Study Date: 05/07/2018 Room#: Type: Outpatient Sex: M Reading: Tristen Menjivar MD, RPVI Referring: Tristen Menjivar MD Enrollment Representative: Michelle Osei RVT Procedure Info: [id number] Study Quality: Lower Arterial Doppler: adequate Diagnosis: I73.9 Peripheral vascular disease, unspecified Lower Arterial Doppler Conclusions Right ankle brachial index is normal. No evidence of small vessel disease at the digital level in the right foot. Left ankle brachial index indicates mild peripheral artery disease. Disease noted at the femoral popliteal level(s). No evidence of small vessel disease at the digital level in the left foot. No evidence of small vessel disease noted at the transmetatarsal level in the right foot. Toe brachial index is normal. Mild small vessel disease noted at the transmetatarsal level in the left foot. Toe brachial index is normal. The procedure was explained to the patient. The patient voiced understanding. Finding Grids Lower PVR Waveforms Right Left Thigh N N Calf N N Ankle N B Transmet N B Rasmussen --------- N = Normal B = Abnormal Toe PPG Waveforms Right Left 1st Digit N N Rasmussen --------- N = Normal Doppler Waveforms Right Left Common Femoral T B Popliteal T B Posterior Tibial T B Dorsalis Pedis T B Rasmussen --------- T = Triphasic B = Biphasic Measurements Right Pressures/Ratios Name Value Units Brachial 172 mmHg Thigh 218 mmHg Calf 208 mmHg Ankle (Posterior Tibial) 194 mmHg Ankle (Dorsalis Pedis) 189 mmHg Toe 184 mmHg CLEMENCIA 1.13 ratio TBI 1.06 ratio Left Pressures/Ratios Name Value Units Brachial 167 mmHg Thigh 166 mmHg Calf 148 mmHg Ankle (Posterior Tibial) 142 mmHg Ankle (Dorsalis Pedis) 144 mmHg Toe 132 mmHg CLEMENCIA 0.84 ratio TBI 0.76 ratio History Carotid Artery Stenosis. Diabetes. Endarterectomy. Hyperlipidemia. Hypertension. PAD. Tobacco Use-Current. Electronically signed at 05/07/2018 17:26:13 by: Tristen Menjivar MD, RPVI Invalid Interpretation Code C RAD Auto Diffon 04-25-2018 Basophils #/vol (Bld) 0.0 E3/mcL Normal 0.0-0.2 [facility] Comment on above: Order Comment: Order Added by Discern Expert. Performed By: #### 2 [id number] #### YENNY RemHemo [address] [place] [address] Basophils/100 WBC (Bld) 0.7 % Normal 0.0-2.0 [facility] Comment on above: Order Comment: Order Added by Discern Expert. Performed By: #### 2 [id number] #### YENNY RemHemo [address] [place] [address] Eos Absolute 0.3 E3/mcL Normal 0.0-0.7 [facility] Comment on above: Order Comment: Order Added by Discern Expert. Performed By: #### 2 [id number] #### YENNY RemHemo [address] [place] [address] Eosinophils/100 WBC (Bld) 4.4 % Normal 0.0-11.0 [facility] Comment on above: Order Comment: Order Added by Discern Expert. Performed By: #### 2 [id number] #### YENNY RemHemo [address] [place] [address] Lymphocytes #/vol (Bld) 1.9 E3/mcL Normal 1.2-3.4 [facility] Comment on above: Order Comment: Order Added by Discern Expert. Performed By: #### 2 514013 #### YENNY RemHemo [address] [place] [address] Lymphocytes/100 WBC (Bld) 30.8 % Normal 20.0-55.0 [facility] Comment on above: Order Comment: Order Added by Discern Expert. Performed By: #### 2 515777 #### YENNY RemHemo [address] [place] [address] Frederick Absolute 0.5 E3/mcL Normal 0.0-0.7 [facility] Comment on above: Order Comment: Order Added by Discern Expert. Performed By: #### 2 290024 #### YENNY MoyaHemo [address] [place] [address] Monocytes/100 WBC (Bld) 8.6 % Normal 0.0-10.0 [facility] Comment on above: Order Comment: Order Added by Discern Expert. Performed By: #### 2 [id number] #### YENNY MoyaHemo [address] [place] [address] Neutro Absolute 3.5 E3/mcL Normal 1.4-6.5 [facility] Comment on above: Order Comment: Order Added by Discern Expert. Performed By: #### 2 302130 #### YENNY MoyaHemo [address] [place] [address] Neutro Auto 55.5 % Normal 37.0-75.0 [facility] Comment on above: Order Comment: Order Added by Discern Expert. Performed By: #### 2 [id number] #### YENNY MoyaHemo [address] [place] [address] CBC w/ Auto Diffon 8 Erythrocyte distribution width Ratio (RBC) 14.4 % Normal 11.5-14.5 [facility] Comment on above: Performed By: #### 2 [id number] #### YENNY MoyaHemo [address] [place] [address] Hematocrit Volume Fraction (Bld) 38.9 % Low 42.0-52.0 [facility] Comment on above: Performed By: #### 2 783921 #### YENNY MoyaHemo [address] [place] [address] Hemoglobin mass conc (Bld) 13.2 g/dL Low 13.5-18.0 [facility] Comment on above: Performed By: #### 2 492321 #### YENNY RemHemo [address] [place] [address] MCH Entitic mass (RBC) 34.4 pg High 27.0-31.0 [facility] Comment on above: Performed By: #### 2 [id number] #### YENNY RemHemo [address] [place] [address] MCHC mass conc (RBC) 34.0 g/dL Normal 33.0-37.0 [facility] Comment on above: Performed By: #### 2 [id number] #### YENNY RemHemo [address] [place] [address] MCV Entitic volume (RBC) 101.2 fL High 78.0-100.0 [facility] Comment on above: Performed By: #### 2 [id number] #### YENNY RemHemo [address] [place] [id number] Platelet mean volume Entitic volume (Bld) 9.7 fL Normal 7.4-11.0 [facility] Comment on above: Performed By: #### 2 [id number] #### YENNY RemHemo [address] [place] [id number] Platelets #/vol (Bld) 169 E3/mcL Normal 130-400 [facility] Comment on above: Performed By: #### 2 713061 #### YENNY RemHemo [address] [place] [id number] RBC #/vol (Bld) 3.84 E6/mcL Low 3.90-6.10 [facility] Comment on above: Performed By: #### 2 [id number] #### YENNY RemHemo [address] [place] [address] WBC #/vol (Bld) 6.2 E3/mcL Normal 3.6-11.0 [facility] Comment on above: Performed By: #### 2 368479 #### YENNY RemHemo [address] [place] [address] CMPon 04-25-2018 Albumin mass conc 3.3 g/dL Normal 3.2-5.0 [facility] Comment on above: Performed By: #### 2 365127 #### YENNY [employer] [address] [place] [address] Albumin/Globulin mass ratio 1.1 {ratio} Normal 1.1-1.9 [facility] Comment on above: Performed By: #### 2 286213 #### YENNY [employer] [address] [place] [address] Alk Phos 45 Int._Unit/L Normal 42-121 [facility] Comment on above: Performed By: #### 2 277146 #### YENNY [employer] [address] [place] [address] ALT enzyme act/vol 21 Int._Unit/L Normal 10-40 [facility] Comment on above: Performed By: #### 2 [id number] #### YENNY [employer] [address] [place] [address] AST enzyme act/vol 24 Int._Unit/L Normal 10-42 [facility] Comment on above: Performed By: #### 2 777449 #### YENNY [employer] [address] [place] [address] Bili Total 0.8 mg/dL Normal 0.2-1.0 [facility] Comment on above: Performed By: #### 2 316199 #### YENNY [address] [address] Creatinine mass conc 1.4 mg/dL High 0.6-1.3 [facility] Comment on above: Performed By: #### 2 [id number] #### YENNY MoyaJAZIO [address] [place] [address] Globulin mass conc (S) 2.9 g/dL Normal 2.0-4.0 [facility] Comment on above: Performed By: #### 2 [id number] #### YENNY MoyaJAZIO [address] [place] [address] Protein mass conc 6.2 g/dL Low 6.4-8.3 [facility] Comment on above: Performed By: #### 2 945692 #### YENNY [employer] [address] [place] [address] Urea nitrogen mass conc 25 mg/dL High 7-18 [facility] Comment on above: Performed By: #### 2 [id number] #### YENNY [employer] [address] [place] [address] Urea nitrogen/Creatinine mass ratio 17.9 ratio Normal 5.4-30.0 [facility] [facility] Comment on above: Performed By: #### 2 [id number] #### Y[facility]NY [employer] [address] [place] [address] Calcium mass conc 8.9 mg/dL Normal 8.4-10.2 [facility] Comment on above: Performed By: #### 2 [id number] #### YENNY [employer] [address] [place] [address] Chloride molar conc 105 mmol/L Normal 98-107 [facility] Comment on above: Performed By: #### 2 [id number] #### [facility] [employer] [address] [place] [address] CO2 molar conc 26.1 mmol/L Normal 24.0-30.0 [facility] Comment on above: Performed By: #### 2 [id number] #### [facility] [employer] [address] [place] [address] Glucose mass conc 62 mg/dL Low 70-99 [facility] Comment on above: Performed By: #### 2 [id number] #### [facility] [employer] [address] [place] [address] Potassium molar conc 4.5 mmol/L Normal 3.5-5.1 [facility] Comment on above: Performed By: #### 2 [id number] #### [facility] [employer] [address] [place] [address] Sodium molar conc 139 mmol/L Normal 136-145 [facility] Comment on above: Performed By: #### 2 [id number] #### [facility] [employer] [address] [place] [address] [id number] 04-25-2018 Hemoglobin A1c/Hemoglobin.total mass fraction (Bld) 6.2 % Normal 4.0-6.3 [facility] Comment on above: Performed By: #### 5 [id number] #### YENNY POC Subsection [address] [place] [address] Lipid Profileon 04-25-2018 Cholesterol in HDL mass conc 47 mg/dL Normal >=41 [facility] Comment on above: Performed By: #### 3 [id number] #### [facility] [employer] [address] [place] [address] Cholesterol in LDL mass conc 115 mg/dL Normal 0-130 [facility] Comment on above: Result Comment: <100 OPTIMAL 100-129 NEAR / ABOVE OPTIMAL 130-159 BORDERLINE HIGH 160-189 HIGH >190 VERY HIGH CALC LDL NOT VALID WHEN TRIGLYCERIDE IS >400 MG/DL Performed By: #### 3 [id number] #### [facility] [address] [place] [address] Cholesterol in VLDL mass conc 24 mg/dL Normal [facility] Comment on above: Performed By: #### 3 [id number] #### [facility] [address] [place] [address] Cholesterol mass conc 186 mg/dL Normal 50-200 [facility] Comment on above: Result Comment: TOTA L CHOLEESTEROL: <200 NORMAL 200 - 239 BORDERLINE HIGH >240 HIGH Performed By: #### 3 [id number] #### [facility] [facility] [place] [address] Triglyceride mass conc 118 mg/dL Normal 35-150 [facility] Comment on above: Result Comment: <150 NORMAL 150-199 BORDERLINE HIGH 200-499 HIGH >500 VERY HIGH Performed By: #### 3 [id number] #### [facility] [employer] [address] [place] [address] Magnesiumon 04-25-2018 Magnesium mass conc 1.7 mg/dL Normal 1.7-2.8 [facility] Comment on above: Performed By: #### 2 [id number] #### [facility] [employer] [address] [place] [address] Microalb/Creat Ratioon 04-25 Creatinine mass conc 110.0 mg/dL Normal 20.0-300.0 [facility] Comment on above: Performed By: #### 5 [id number] #### YENNY POC Subsection [address] [place] [address] Creatinine mass conc 1123 ug/mg High 0-30 [facility] Comment on above: Performed By: #### 5 [id number] #### YENNY POC Subsection [address] [place] [address] Ur Microalbumin 123.5 mg/dL High 0.0-1.9 [facility] Comment on above: Performed By: #### 5 [id number] #### YENNY POC Subsection [address] [place] [address] eGFRon 04-25-2018 GFR/1.73 sq M predicted among non-blacks MDRD vol rate/area (S/P/Bld) mL/min/{1.73_m2} [facility] Comment on above: Order Comment: Order added by Discern Expert. Performed By: #### 1 [id number] #### [facility] [employer] [address] [place] [address] GFR/1.73 sq M predicted among non-blacks MDRD vol rate/area (S/P/Bld) 50 mL/min/1.73 m2 [facility] Comment on above: Order Comment: Order added by Discern Expert. Performed By: #### 1 [id number] #### [place] [address] C Woundon 04-10-2018 C Wound Final Report: Modera te Escherichia coli Moderate growth of anaerobe Peptostreptococcus anaerobius ORGANISM: EC Gram Stain Report: Few White Blood Cells Rare Gram Negative Rods Rare Gram Positive Cocci SUSCEPTIBILITY RESULTS Antibiotic CALIN Dilutn CALIN Interp ORGANISM: EC Amox/Cla : <=8/4 S Amp : <=8 S Amp/Sul : <=8/4 S Cefaz : <=8 S Cefo : <=2 S Cipro : <=1 S Gent : <=4 S Levo : <=2 S Katherine : <=1 S Pip/Reji : <=16 S Tetra : <=4 S Tobra : <=4 S SXT : <=2/38 S [facility] Comment on above: Performed By: #### 2 [id number] #### YENNY Microbiology Subsection [address] [place] [address] CT Thorax w/o Contraston CT Thorax w/o Contrast Exam Date/Time: 01/11/2018 11:03 EDT Reason for Exam: SCREENING FOR MALIGNANT NEOPLASM OF RESPITORY ORGANS CURRENT SMOKER LOW DOSE SCREENING Report EXAM: CT Thorax w/o Contrast - screening study. CLINICAL STATEMENT: Chest pain. Current smoker. COMPARISON: 12/30/2016 CT chest. TECHNIQUE: ?CT examination of the chest?without IV contrast. Coronal and sagittal reformations were performed. ? Dose reduction techniques were achieved by using automated exposure control and/or adjustment of mA and/or kV according to patient size and/or use of iterative reconstruction technique. FINDINGS: Dense calcifications are present, in the proximal LAD and circumflex coronary arteries, as well as in the proximal right coronary artery and posterior descending coronary arteries. These are similar to the previous examination of 12/30/2016. No pericardial effusion is seen. The aorta is normal in size. Note is made of gallstones. No hilar or mediastinal lymphadenopathy is present. There are several calcified nodules present in both lungs, unchanged from the previous examination. No cysts are seen. There is no evidence of interstitial fibrosis. The lungs are hyperinflated. The left main pulmonary artery measures about 3 cm in size unchanged from the previous examination. Right main pulmonary artery measures 2.6 cm. The caliber of the bronchi is normal. No lytic or blastic lesion is seen. IMPRESSION: No lung mass. No significant change from the previous examination. Coronary arterial calcifications. Hyperinflation. FINAL REPORT Dictated: 01/11/2018 4:39 pm Seven Garrido MD Signed (Electronic Signature): 01/11/2018 4:39 pm Signed by: Seven Garrido MD Technologist: MAXIM [facility] Albuminon 12-20-2017 Albumin 3.4 g/dL Normal 3.2-5.[address] [facility] Comment on above: Performed By: #### F ERR, LYTES, CALCM, BUNCR, IRON, TFERR, ALB, PHOS, PTHI #### Unless otherwise noted, all testing performed by [place] [address] CLIA: [id number] Drawer In [employer]: Eric Moser M.D. BUN and Creatinineon 018 Creatinine 1.19 mg/dL Normal 0.80-1.[address] [facility] Comment on above: Performed By: #### F ERR, LYTES, CALCM, BUNCR, IRON, TFERR, ALB, PHOS, PTHI #### Unless otherwise noted, all testing performed by [place] [address] CLIA: [id number] [employer]: Eric Moser M.D. eGFR (black) mL/min/{1.73_m2} Normal [facility] Comment on above: Result Comment: Afri can [place] GFR Calc Performed By: #### F ERR, LYTES, CALCM, BUNCR, IRON, TFERR, ALB, PHOS, PTHI #### Unless otherwise noted, all testing performed by [place] [address] CLIA: [id number] Draw[employer] In [employer]: Eric Moser M.D. eGFR (non-black) mL/min/{1.73_m2} Normal [facility] Comment on above: Result Comment: Non- GFR Calc eGFR is an estimated Glomerular Filtration Rate based on the value of the patient's serum creatinine. In outpatients, eGFR should be used as a helpful tool in screening for CKD. In inpatients or patients with acute renal failure, eGFR represents the GFR at the moment of the draw and should be used with caution. Performed By: #### F ERR, LYTES, CALCM, BUNCR, IRON, TFERR, ALB, PHOS, PTHI #### Unless otherwise noted, all testing performed by [place] [address] CLIA: [id number] [employer]: Eric Moser M.D. Urea nitrogen 15 mg/dL Normal 8-[address] [facility] Comment on above: Performed By: #### F ERR, LYTES, CALCM, BUNCR, IRON, TFERR, ALB, PHOS, PTHI #### Unless otherwise noted, all testing performed by [place] [address] CLIA: [id number] [employer]: Eric Moser M.D. CBC and Differentialon 12-20 Basophils 0.7 % Invalid Interpretation Code [facility] Basophils 0.0 K/mcL Invalid Interpretation Code 0 - 0.[address] [facility] Eosinophils 0.2 K/mcL Invalid Interpretation Code 0 - 0.[address] [facility] Erythrocytes (RBC) 3.41 M/mcL Low 4.0 - 5.5 [facility] Hematocrit (HCT) 35.0 % Low 37.9 - 49.2 % [facility] Hemoglobin (HGB) 12.1 g/dL Low 12.9-16.9 [facility] Comment on above: Performed By: #### R ETIC, ELPRS, IMMFRLTC, CBCDIF, IFIXSI #### Unless otherwise noted, all testing performed by [facility] [address] [place] [place] [address] CLIA: [id number] [employer]: Eric Moser M.D. Lymphocytes 2.0 K/mcL Invalid Interpretation Code 0.9 - 3.[address] [facility] MCH 35.4 pg High 27.7 - 34.[address] [facility] MCHC 34.5 g/dL Invalid Interpretation Code 32.9 - 35.5 g/dL [facility] MCV 102.4 fL High 82.8 - 99.[address] [facility] Monocytes 0.5 K/mcL Invalid Interpretation Code 0.2 - 0.[address] [facility] Neutrophils 4.2 K/mcL Invalid Interpretation Code 1.4 - 6.[address] [facility] Platelet mean volume (PMV) 9.6 fL Invalid Interpretation Code 6.6 - 10.[address] [facility] Platelets 201 K/mcL Invalid Interpretation Code 139 - [address] [facility] RDW-CA 12.5 % Invalid Interpretation Code 10 - 14.3 % [facility] Segmented Neut 60.2 % Invalid Interpretation Code [facility] T8 suppressor/100 cells 2.4 10*3/uL Invalid Interpretation Code [facility] T8 suppressor/100 cells 28.9 10*3/uL Invalid Interpretation Code [facility] T8 suppressor/100 cells 7.8 10*3/uL Invalid Interpretation Code [facility] WBC (Leukocytes) 6.9 K/mcL Invalid Interpretation Code 3.6 - 10.[address] [facility] CBC with Diffon 12-20-2017 Basophils #/vol (Bld) 0.0 K/mcL Normal 0-0.2 [facility] Comment on above: Performed By: #### R ETIC, ELPRS, IMMFRLTC, CBCDIF, IFIXSI #### Unless otherwise noted, all testing performed by [place] [address] CLIA: [id number] [employer]: Eric Moser M.D. Basophils/100 WBC (Bld) 0.7 % Normal [facility] Comment on above: Performed By: #### R ETIC, ELPRS, IMMFRLTC, CBCDIF, IFIXSI #### Unless otherwise noted, all testing performed by [place] [address] CLIA: [id number] [employer]: Eric Moser M.D. Eosinophils #/vol (Bld) 0.2 K/mcL Normal 0-0.5 [facility] Comment on above: Performed By: #### R ETIC, ELPRS, IMMFRLTC, CBCDIF, IFIXSI #### Unless otherwise noted, all testing performed by [place] [address] CLIA: [id number] [employer]: Eric Moser M.D. Eosinophils/100 WBC (Bld) 2.4 % Normal [facility] Comment on above: Performed By: #### R ETIC, ELPRS, IMMFRLTC, CBCDIF, IFIXSI #### Unless otherwise noted, all testing performed by [place] [address] CLIA: [id number] [employer]: Eric Moser M.D. Erythrocyte distribution width Ratio (RBC) 12.5 % Normal 10-14.3 [facility] Comment on above: Performed By: #### R ETIC, ELPRS, IMMFRLTC, CBCDIF, IFIXSI #### Unless otherwise noted, all testing performed by [place] [address] CLIA: [id number] [employer]: Eric Moser M.D. Hematocrit Volume Fraction (Bld) 35.0 % Low 37.9-49.2 [facility] Comment on above: Performed By: #### R ETIC, ELPRS, IMMFRLTC, CBCDIF, IFIXSI #### Unless otherwise noted, all testing performed by [place] [phone] CLIA: [id number] [employer]: Eric Moser M.D. Lymphocytes #/vol (Bld) 2.0 K/mcL Normal 0.9-3.6 [facility] Comment on above: Performed By: #### R ETIC, ELPRS, IMMFRLTC, CBCDIF, IFIXSI #### Unless otherwise noted, all testing performed by [place] [phone] CLIA: [id number] [employer]: Eric Moser M.D. Lymphocytes/100 WBC (Bld) 28.9 % Normal [facility] Comment on above: Performed By: #### R ETIC, ELPRS, IMMFRLTC, CBCDIF, IFIXSI #### Unless otherwise noted, all testing performed by [place] [phone] CLIA: [id number] [employer]: Eric Moser M.D. MCH Entitic mass (RBC) 35.4 pg High 27.7-34.6 [facility] Comment on above: Performed By: #### R ETIC, ELPRS, IMMFRLTC, CBCDIF, IFIXSI #### Unless otherwise noted, all testing performed by [place] [address] CLIA: [id number] Draw[employer]: Eric Moser M.D. MCHC mass conc (RBC) 34.5 g/dL Normal 32.9-35.5 [facility] Comment on above: Performed By: #### R ETIC, ELPRS, IMMFRLTC, CBCDIF, IFIXSI #### Unless otherwise noted, all testing performed by [place] [address] CLIA: [id number] [employer]: Eric Moser M.D. MCV Entitic volume (RBC) 102.4 fL High 82.8-99.3 [facility] Comment on above: Performed By: #### R ETIC, ELPRS, IMMFRLTC, CBCDIF, IFIXSI #### Unless otherwise noted, all testing performed by [place] [address] CLIA: [id number] Draw[employer] In [employer]: Eric Moser M.D. Monocytes #/vol (Bld) 0.5 K/mcL Normal 0.2-0.6 [facility] Comment on above: Performed By: #### R ETIC, ELPRS, IMMFRLTC, CBCDIF, IFIXSI #### Unless otherwise noted, all testing performed by [place] [address] CLIA: [id number] Draw[employer]: Eric Moser M.D. Monocytes/100 WBC (Bld) 7.8 % Normal [facility] Comment on above: Performed By: #### R ETIC, ELPRS, IMMFRLTC, CBCDIF, IFIXSI #### Unless otherwise noted, all testing performed by [place] [address] CLIA: [id number] [employer]: Eric Moser M.D. Neutrophils #/vol (Bld) 4.2 K/mcL Normal 1.4-6.8 [facility] Comment on above: Performed By: #### R ETIC, ELPRS, IMMFRLTC, CBCDIF, IFIXSI #### Unless otherwise noted, all testing performed by [place] [address] CLIA: [id number] [employer]: Eric Moser M.D. Platelet mean volume Entitic volume (Bld) 9.6 fL Normal 6.6-10.8 [facility] Comment on above: Performed By: #### R ETIC, ELPRS, IMMFRLTC, CBCDIF, IFIXSI #### Unless otherwise noted, all testing performed by [place] [address] CLIA: [id number] Draw[employer] In [employer]: Eric Moser M.D. Platelets #/vol (Bld) 201 K/mcL Normal 139-354 [facility] Comment on above: Performed By: #### R ETIC, ELPRS, IMMFRLTC, CBCDIF, IFIXSI #### Unless otherwise noted, all testing performed by [place] [address] CLIA: [id number] Draw[employer] In [employer]: Eric Moser M.D. RBC #/vol (Bld) 3.41 M/mcL Low 4.0-5.5 [facility] Comment on above: Performed By: #### R ETIC, ELPRS, IMMFRLTC, CBCDIF, IFIXSI #### Unless otherwise noted, all testing performed by [place] [address] CLIA: [id number] Drawer In [employer]: Eric Moser M.D. Segmented Neut % 60.2 % Normal [facility] Comment on above: Performed By: #### R ETIC, ELPRS, IMMFRLTC, CBCDIF, IFIXSI #### Unless otherwise noted, all testing performed by [place] [address] CLIA: [id number] Drawer In [employer]: Eric Moser M.D. WBC #/vol (Bld) 6.9 K/mcL Normal 3.6-10.4 [facility] Comment on above: Performed By: #### R ETIC, ELPRS, IMMFRLTC, CBCDIF, IFIXSI #### Unless otherwise noted, all testing performed by [place] [address] CLIA: [id number] Draw[employer] In [employer]: Eric Moser M.D. Calcium Levelon 12-20-2017 Calcium 8.7 mg/dL Normal 8.4-10.[address] [facility] Comment on above: Performed By: #### F ERR, LYTES, CALCM, BUNCR, IRON, TFERR, ALB, PHOS, PTHI #### Unless otherwise noted, all testing performed by [place] [address] CLIA: [id number] Draw[employer]: Eric Moser M.D. Electrolyte Panelon 12-20-19 18 Chloride 108 mmol/L Normal 98-[address] [facility] Comment on above: Performed By: #### F ERR, LYTES, CALCM, BUNCR, IRON, TFERR, ALB, PHOS, PTHI #### Unless otherwise noted, all testing performed by [place] [address] CLIA: [id number] Drawer In [employer]: Eric Moser M.D. CO2 26 mmol/L Normal 21-[address] [facility] Comment on above: Performed By: #### F ERR, LYTES, CALCM, BUNCR, IRON, TFERR, ALB, PHOS, PTHI #### Unless otherwise noted, all testing performed by [place] [address] CLIA: [id number] Drawer In [employer]: Eric Moser M.D. Potassium 3.9 mmol/L Normal 3.5-5.[address] [facility] Comment on above: Performed By: #### F ERR, LYTES, CALCM, BUNCR, IRON, TFERR, ALB, PHOS, PTHI #### Unless otherwise noted, all testing performed by [place] [address] CLIA: [id number] Drawer In [employer]: Eric Moser M.D. Sodium 140 mmol/L Normal 135-[address] [facility] Comment on above: Performed By: #### F ERR, LYTES, CALCM, BUNCR, IRON, TFERR, ALB, PHOS, PTHI #### Unless otherwise noted, all testing performed by [place] [address] CLIA: [id number] Draw[employer]: Eric Moser M.D. Ferritinon 12-20-2017 Ferritin 95 ng/mL Invalid Interpretation Code 30 - 400 ng/mL [facility] Ferritin mass conc 95 ng/mL Normal 30-400 [facility] Comment on above: Result Comment: Samp les from patients routinely receiving high dose biotin therapy (100-300 mg/day) may show falsely decreased results. Please correlate clinically. Performed By: #### F ERR, LYTES, CALCM, BUNCR, IRON, TFERR, ALB, PHOS, PTHI #### Unless otherwise noted, all testing performed by [place] [address] CLIA: [id number] Drawer In [employer]: Eric Moser M.D. Immunofixationon 12-20-2017 Comments (IFIXS) Normal [facility] Comment on above: Result Comment: No p araproteins detected. A negative serum immunofixation and/or serum protein electrophoresis is insufficient to rule out a monoclonal protein. Recommend serum free light chains if clinically indicated. Reviewed by Pathologist: Hayes House MD. Test Performed by [facility] [address] [place] [address] Performed By: #### F ERR, LYTES, CALCM, BUNCR, IRON, TFERR, ALB, PHOS, PTHI #### Unless otherwise noted, all testing performed by [place] [address] CLIA: [id number] Drawer In [employer]: Eric Moser M.D. Immunofixation Normal Normal Normal [facility] Comment on above: Performed By: #### F ERR, LYTES, CALCM, BUNCR, IRON, TFERR, ALB, PHOS, PTHI #### Unless otherwise noted, all testing performed by [place] [phone] CLIA: [id number] Drawer [employer]: Eric Moser M.D. Immunoglobulin Free Lt Chain son 12-20-2017 [place] Free Light Chains 2.57 mg/dL High 0.3300-1.94 [facility] Comment on above: Performed By: #### F ERR, LYTES, CALCM, BUNCR, IRON, TFERR, ALB, PHOS, PTHI #### Unless otherwise noted, all testing performed by [address] [place], [place] [address] CLIA: [id number] Drawer In [employer]: Eric Moser M.D. [place]-Lambda Ratio 1.21 Normal 0.2600-1.65 [facility] Comment on above: Result Comment: Test Performed by: [address] [address] Performed By: #### F ERR, LYTES, CALCM, BUNCR, IRON, TFERR, ALB, PHOS, PTHI #### Unless otherwise noted, all testing performed by [place] [address] CLIA: [id number] Drawer In [employer]: Eric Moser M.D. Lambda Free Light Chain 2.13 mg/dL Normal 0.5700-2.63 [facility] Comment on above: Performed By: #### F ERR, LYTES, CALCM, BUNCR, IRON, TFERR, ALB, PHOS, PTHI #### Unless otherwise noted, all testing performed by [place] [address] CLIA: [id number] Drawer In [employer]: Eric Moser M.D. Ironon 12-20-2017 Interpretation and review of laboratory results Abnormal Invalid Interpretation Code [facility] Iron 64 ug/dL Low 65 - [address] [facility] Iron, Totalon 12-20-2017 Iron, Total 64 mcg/dL Low 65-175 [facility] Comment on above: Performed By: #### F ERR, LYTES, CALCM, BUNCR, IRON, TFERR, ALB, PHOS, PTHI #### Unless otherwise noted, all testing performed by [place] [address] CLIA: [id number] Drawer In [employer]: Eric Moser M.D. Parathyroid Hormoneon 2017 Parathyroid Hormone 25.4 pg/mL Normal 18.4-80.1 [facility] Comment on above: Result Comment: Samp les from patients routinely receiving high dose biotin therapy may show falsely depressed results. Additional information may be required for diagnosis. Performed By: #### F ERR, LYTES, CALCM, BUNCR, IRON, TFERR, ALB, PHOS, PTHI #### Unless otherwise noted, all testing performed by [place] [address] CLIA: [id number] Drawer In [employer]: Eric Moser M.D. Phosphoruson 12-20-2017 Phosphate 2.8 mg/dL Normal 2.3-3.[address] [facility] Comment on above: Performed By: #### F ERR, LYTES, CALCM, BUNCR, IRON, TFERR, ALB, PHOS, PTHI #### Unless otherwise noted, all testing performed by [place] [address] CLIA: [id number] Drawer In [employer]: Eric Moser M.D. Protein Electrophoresis, [facility] 12-20-2017 Albumin mass conc 3.5 g/dL Normal 3.1-5.5 [facility] Comment on above: Performed By: #### F ERR, LYTES, CALCM, BUNCR, IRON, TFERR, ALB, PHOS, PTHI #### Unless otherwise noted, all testing performed by [place] [address] CLIA: [id number] Drawer In [employer]: Eric Moser M.D. Alpha-1 0.3 g/dL Normal 0.2-0.5 [facility] Comment on above: Performed By: #### F ERR, LYTES, CALCM, BUNCR, IRON, TFERR, ALB, PHOS, PTHI #### Unless otherwise noted, all testing performed by [address] [place] [address] CLIA: [id number] Drawer In [employer]: Eric Moser M.D. Alpha-2 0.8 g/dL Normal 0.4-1.1 [facility] Comment on above: Performed By: #### F ERR, LYTES, CALCM, BUNCR, IRON, TFERR, ALB, PHOS, PTHI #### Unless otherwise noted, all testing performed by [place] [address] CLIA: [id number] Drawer In [employer]: Eric Moser M.D. Beta 1.2 g/dL Normal 0.6-1.3 [facility] Comment on above: Performed By: #### F ERR, LYTES, CALCM, BUNCR, IRON, TFERR, ALB, PHOS, PTHI #### Unless otherwise noted, all testing performed by [place] [address] CLIA: [id number] Draw[employer]: Eric Moser M.D. Comment (SPE) Reviewed by patholog ist: Hayes House M.D. [facility] Comment on above: Performed By: #### F ERR, LYTES, CALCM, BUNCR, IRON, TFERR, ALB, PHOS, PTHI #### Unless otherwise noted, all testing performed by [place] [address] CLIA: [id number] Drawer In [employer]: Eric Moser M.D. Gamma 0.9 g/dL Normal 0.6-1.8 [facility] Comment on above: Performed By: #### F ERR, LYTES, CALCM, BUNCR, IRON, TFERR, ALB, PHOS, PTHI #### Unless otherwise noted, all testing performed by [place] [id number] CLIA: [id number] Drawer In [employer]: Eric Moser M.D. Interpretation ([facility]) Normal [facility] Comment on above: Result Comment: Norm al pattern. Serum protein electrophoresis is insufficient to rule out a monoclonal protein. Recommend serum immunofixation and serum free light chains if clinically indicated. Test Performed by [facility] [address] [place] [address] Performed By: #### F ERR, LYTES, CALCM, BUNCR, IRON, TFERR, ALB, PHOS, PTHI #### Unless otherwise noted, all testing performed by [place] [phone] CLIA: [id number] Draw[employer] In [employer]: Eric Moser M.D. Protein mass conc 6.6 g/dL Normal 6.0-8.0 [facility] Comment on above: Performed By: #### F ERR, LYTES, CALCM, BUNCR, IRON, TFERR, ALB, PHOS, PTHI #### Unless otherwise noted, all testing performed by [place] [address] CLIA: [id number] Drawer In [employer]: Eric Moser M.D. Protein Panel, Urineon 12-20 Creatinine, Urine Random 74.00 mg/dL Normal [facility] Comment on above: Result Comment: No e stablished reference range. Performed By: #### F ERR, LYTES, CALCM, BUNCR, IRON, TFERR, ALB, PHOS, PTHI #### Unless otherwise noted, all testing performed by [place] [id number] CLIA: [id number] Drawer In [employer] Loom: Eric Moser M.D. Interpretation and review of laboratory results Abnormal Invalid Interpretation Code [facility] Protein Creatinine Ratio 2.26 High 0.0-0.2 [facility] Comment on above: Performed By: #### F ERR, LYTES, CALCM, BUNCR, IRON, TFERR, ALB, PHOS, PTHI #### Unless otherwise noted, all testing performed by [place] [id number] CLIA: [id number] Drawer In [employer]oom: Eric Moser M.D. Protein mass conc (U) 167.4 mg/dL Normal [facility] Comment on above: Performed By: #### F ERR, LYTES, CALCM, BUNCR, IRON, TFERR, ALB, PHOS, PTHI #### Unless otherwise noted, all testing performed by [place] [id number] CLIA: [id number] Drawer In [employer]oom: Eric Moser M.D. Protein, Urine Random 167.4 mg/dL Invalid Interpretation Code [facility] Protein/Creatinine Ratio, Urine 2.26 1 High 0.0 - 0.[address] [facility] Reticulocyteon 12-20-2017 Interpretation and review of laboratory results Abnormal Invalid Interpretation Code [facility] Reticulocyte 1.85 % High 0.5-1.7 [facility] Comment on above: Performed By: #### F ERR, LYTES, CALCM, BUNCR, IRON, TFERR, ALB, PHOS, PTHI #### Unless otherwise noted, all testing performed by [place] [id number] CLIA: [id number] Drawer In [employer]: Eric Moser M.D. Reticulocytes 1.85 % High 0.5 - 1.7 % [facility] Transferrinon 12-20-2017 Transferrin 257.0 mg/dL Normal 212.0-360.[address] [facility] Comment on above: Performed By: #### F ERR, LYTES, CALCM, BUNCR, IRON, TFERR, ALB, PHOS, PTHI #### Unless otherwise noted, all testing performed by [facility] [address] [place] [address] CLIA: [id number] Drawer In [employer]: Eric Moser M.D. SMITH Teston 12-19-2017 SMITH Test Negative Normal Negative [facility] Comment on above: Performed By: #### [id number] #### YENNY Misc Micro SubSection , Glucose POCon 12-18-2017 Glucose mass conc 99 mg/dL Normal 70-99 [facility] Comment on above: Performed By: #### [id number] #### YENNY POC Subsection [facility] [place] [address] Comprehensive Metabolic Pane jer 08-17-2017 Albumin mass conc 3.6 g/dL Invalid Interpretation Code 3.2 - 5.2 g/dL [facility] ALP enzyme act/vol 77 U/L Invalid Interpretation Code 40 - 150 U/L [facility] ALT enzyme act/vol 28 U/L Invalid Interpretation Code 14 - 65 U/L [facility] Comment on above: This test result alfredo ht be falsely depressed or falsely elevated on samples drawn from patients taking Sulfasalazine and Sulfapyridine. Venipuncture should occur prior to taking either of these drugs. AST enzyme act/vol 22 U/L Invalid Interpretation Code 0 - 45 U/L [facility] Comment on above: This test result alfredo ht be falsely depressed or falsely elevated on samples drawn from patients taking Sulfasalazine and Sulfapyridine. Venipuncture should occur prior to taking either of these drugs. Bilirubin mass conc 0.2 mg/dL Low 0.3 - 1. 2 mg/dL [facility] Calcium mass conc 9.0 mg/dL Invalid Interpretation Code 8.4 - 10.2 mg/dL [facility] Chloride molar conc 113 mmol/L High 98 - 108 mmol/L [facility] CO2 molar conc 17 mmol/L Low 21 - 32 mmol/L [facility] Creatinine mass conc 1.36 mg/dL High 0.8 - 1 .3 mg/dL [facility] GFR/1.73 sq M predicted among blacks MDRD vol rate/area (S/P/Bld) mL/min/{1.73_m2} Invalid Interpretation Code ml/min/1.73s q.m [facility] Comment on above: GFR Calc GFR/1.73 sq M predicted among non-blacks MDRD vol rate/area (S/P/Bld) 52 mL/min/{1.73_m2} Low >60 [facility] Comment on above: Non- GFR Calc eGFR is an estimated Glomerular Filtration Rate based on the value of the patient's serum creatinine. In outpatients, eGFR should be used as a helpful tool in screening for CKD. In inpatients or patients with acute renal failure, eGFR represents the GFR at the moment of the draw and should be used with caution. Glucose mass conc 85 mg/dL Invalid Interpretation Code 70 - 99 mg/dL [facility] Comment on above: This test result alfredo ht be falsely depressed or falsely elevated on samples drawn from patients taking Sulfasalazine and Sulfapyridine. Venipuncture should occur prior to taking either of these drugs. Interpretation and review of laboratory results Abnormal Invalid Interpretation Code [facility] Potassium molar conc 4.4 mmol/L Invalid Interpretation Code 3.5 - 5.1 mmol/L [facility] Protein mass conc 7.7 g/dL Invalid Interpretation Code 6 - 8 g/dL [facility] Sodium molar conc 141 mmol/L Invalid Interpretation Code 135 - 145 mmol/L [facility] Urea nitrogen mass conc 28 mg/dL High 8 - 25 mg/dL [facility] Ferritinon 08-17-2017 Ferritin [Mass/volume] in Serum or Plasma 87 ng/mL Invalid Interpretation Code 30 - 400 ng/mL [facility] Reticulocyteon 08-17-2017 Reticulocytes 1.44 % Invalid Interpretation Code 0.5 - 1.7 % [facility] Vitamin B12 and Folateson Cobalamin (Vitamin B12) mass conc 825 pg/mL Invalid Interpretation Code 193 - 986 pg/mL [facility] Folate >20.0 High 3.1 - 17.5 ng/mL [facility] Vital Signs Date Time Vital Sign Value Performing Clinician Facility 04-10-2025 17:27-0400 Body temperature 98 [degF] Dr. Phyllis Mae MD Work Phone: [facility] 04-10-2025 17:27-0400 Diastolic blood pressure 66 mm[Hg] Dr. Phyllis Mae MD Work Phone: [facility] 04-10-2025 17:27-0400 Heart rate 62 /min Dr. Phyllis Mae MD Work Phone: [facility] 04-10-2025 17:27-0400 Respiratory rate 17 /min Dr. Phyllis Mae MD Work Phone: [facility] 04-10-2025 17:27-0400 SaO2% (BldA) [Mass fraction] 98 % Dr. Phyllis Mae MD Work Phone: [facility] 04-10-2025 17:27-0400 Systolic blood pressure 151 mm[Hg] Dr. Phyllis Mae MD Work Phone: [facility] 04-10-2025 15:19-0400 Body mass index (BMI) [Ratio] 21.7 kg/m2 Dr. Phyllis Mae MD Work Phone: [facility] 04-10-2025 15:19-0400 Body weight 62.[address] Phyllis Mae MD Work Phone: [facility] 04-10-2025 15:18-0400 Body height 170.[address] Phyllis Mae MD Work Phone: [facility] 01-02-2025 13:34-0500 Diastolic blood pressure 50 mm[Hg] BHMUIKA Lin DPM Work Phone: [facility] 01-02-2025 13:34-0500 Heart rate 75 /min BHUMIKA Lin DPM Work Phone: [facility] 01-02-2025 13:34-0500 Systolic blood pressure 95 mm[Hg] BHUMIKA Duquemann DPM Work Phone: [facility] 01-02-2025 13:31-0500 Body height 167.6 cm BHUMIKA Lin DPM Work Phone: [facility] 01-02-2025 13:31-0500 Body mass index (BMI) [Ratio] 22.92 kg/m2 BHUMIKA Lin DPM Work Phone: [facility] 01-02-2025 13:31-0500 Body temperature 97 [degF] CJ Netomann DPM Work Phone: [facility] 01-02-2025 13:31-0500 Body weight 64.41 kg CJ Riley DPM Work Phone: [facility] 01-02-2025 13:31-0500 Respiratory rate 16 /min CJ Netomann DPM Work Phone: [facility] 01-02-2025 13:31-0500 SaO2% (BldA) [Mass fraction] 97 % CJ Riley DPM Work Phone: [facility] 12-05-2024 12:45-0500 Body height 167.6 cm Phyllis Mae MD Work Phone: [facility] 12-05-2024 12:45-0500 Body mass index (BMI) [Ratio] 23.05 kg/m2 Phyllis Mae MD Work Phone: [facility] 12-05-2024 12:45-0500 Body weight 64.77 kg Phyllis Mae MD Work Phone: [facility] 12-05-2024 12:45-0500 Diastolic blood pressure 58 mm[Hg] Phyllis Mae MD Work Phone: [facility] 12-05-2024 12:45-0500 Heart rate 67 /min Phyllis Mae MD Work Phone: [facility] 12-05-2024 12:45-0500 SaO2% (BldA) [Mass fraction] 94 % Phyllis Mae MD Work Phone: [facility] 12-05-2024 12:45-0500 Systolic blood pressure 87 mm[Hg] Phyllis Mae MD Work Phone: [facility] 11-05-2024 13:04-0500 Body height 167.6 cm Phyllis Mae MD Work Phone: [facility] 11-05-2024 13:04-0500 Body mass index (BMI) [Ratio] 23.27 kg/m2 Phyllis Mae MD Work Phone: [facility] 11-05-2024 13:04-0500 Body weight 65.41 kg Phyllis Mae MD Work Phone: [facility] 11-05-2024 13:04-0500 Diastolic blood pressure 74 mm[Hg] Phyllis Mae MD Work Phone: [facility] 11-05-2024 13:04-0500 Heart rate 74 /min Phyllis Mae MD Work Phone: [facility] 11-05-2024 13:04-0500 SaO2% (BldA) [Mass fraction] 93 % Phyllis Mae MD Work Phone: [facility] 11-05-2024 13:04-0500 Systolic blood pressure 136 mm[Hg] Phyllis Mae MD Work Phone: [facility] 10-03-2024 14:48-0500 Diastolic blood pressure 79 mm[Hg] W. Craske III, DO Work Phone: [facility] 10-03-2024 14:48-0500 Heart rate 60 /min W. Pauske III, DO Work Phone: [facility] 10-03-2024 14:48-0500 Systolic blood pressure 155 mm[Hg] W. Craske III, DO Work Phone: [facility] 10-03-2024 14:42-0500 Body height 167.6 cm W. Pauske III, DO Work Phone: [facility] 10-03-2024 14:42-0500 Body mass index (BMI) [Ratio] 22.92 kg/m2 WVito Tiptone III, DO Work Phone: [facility] 10-03-2024 14:42-0500 Body weight 64.41 kg W. Danutae III, DO Work Phone: [facility] 10-03-2024 13:14-0500 Body temperature 98.71 [degF] CJ Hassmann DPM Work Phone: [facility] 10-03-2024 13:14-0500 Diastolic blood pressure 72 mm[Hg] CJ Hassmann DPM Work Phone: [facility] 10-03-2024 13:14-0500 Heart rate 63 /min CJ Hassmann DPM Work Phone: [facility] 10-03-2024 13:14-0500 Systolic blood pressure 115 mm[Hg] CJ Hassmann DPM Work Phone: [facility] 09-09-2024 15:18-0500 Body height 167.6 cm Aquiles Herrera MD Work Phone: [facility] 09-09-2024 15:18-0500 Body mass index (BMI) [Ratio] 22.92 kg/m2 Aquiles Herrera MD Work Phone: [facility] 09-09-2024 15:18-0500 Body weight 64.41 kg Aquiles Herrera MD Work Phone: [facility] 09-09-2024 15:18-0500 Diastolic blood pressure 69 mm[Hg] Aquiles Herrera MD Work Phone: [facility] 09-09-2024 15:18-0500 Heart rate 59 /min Aquiles Herrera MD Work Phone: [facility] 09-09-2024 15:18-0500 SaO2% (BldA) [Mass fraction] 96 % Aquiles Herrera MD Work Phone: [facility] 09-09-2024 15:18-0500 Systolic blood pressure 129 mm[Hg] Aquiles Herrera MD Work Phone: [facility] 09-09-2024 13:51-0500 Body mass index (BMI) [Ratio] 22.92 kg/m2 Fior Forbes CNP Work Phone: [facility] 09-09-2024 13:51-0500 Body weight 64.41 kg Fior Forbes CNP Work Phone: [facility] 09-09-2024 13:51-0500 Diastolic blood pressure 69 mm[Hg] Fior Forbes CNP Work Phone: [facility] 09-09-2024 13:51-0500 Heart rate 59 /min Fior Forbes CNP Work Phone: [facility] 09-09-2024 13:51-0500 Systolic blood pressure 129 mm[Hg] Fior Forbes CNP Work Phone: [facility] 07-25-2024 12:52-0400 Body height 167.6 cm Phyllis Mae MD Work Phone: [facility] 07-25-2024 12:52-0400 Body mass index (BMI) [Ratio] 23.73 kg/m2 Phyllis Mae MD Work Phone: [facility] 07-25-2024 12:52-0400 Body weight 66.68 kg Phyllis Mae MD Work Phone: [facility] 07-25-2024 12:52-0400 Diastolic blood pressure 69 mm[Hg] Phyllis Mae MD Work Phone: [facility] 07-25-2024 12:52-0400 Heart rate 82 /min Phyllis Mae MD Work Phone: [facility] 07-25-2024 12:52-0400 Systolic blood pressure 105 mm[Hg] Phyllis Mae MD Work Phone: [facility] 06-27-2024 14:08-0400 Body temperature 98.4 [degF] CJ Hassmann DPM Work Phone: [facility] 06-27-2024 14:08-0400 Diastolic blood pressure 59 mm[Hg] CJ Hassmann DPM Work Phone: [facility] 06-27-2024 14:08-0400 Heart rate 71 /min CJ Hassmann DPM Work Phone: [facility] 06-27-2024 14:08-0400 SaO2% (BldA) [Mass fraction] 94 % CJ Hassmann DPM Work Phone: [facility] 06-27-2024 14:08-0400 Systolic blood pressure 96 mm[Hg] CJ Hassmann DPM Work Phone: [facility] 05-14-2024 10:25-0400 Body temperature 98.49 [degF] CJ Hassmann DPM Work Phone: [facility] 05-14-2024 10:25-0400 Diastolic blood pressure 71 mm[Hg] CJ Hassmann DPM Work Phone: [facility] 05-14-2024 10:25-0400 Heart rate 93 /min CJ Hassmann DPM Work Phone: [facility] 05-14-2024 10:25-0400 SaO2% (BldA) [Mass fraction] 92 % CJ Hassmann DPM Work Phone: [facility] 05-14-2024 10:25-0400 Systolic blood pressure 108 mm[Hg] CJ Hassmann DPM Work Phone: [facility] 05-07-2024 14:32-0400 Body mass index (BMI) [Ratio] 23.86 kg/m2 David Waters RN INVASIVE Work Phone: [facility] 05-07-2024 14:32-0400 Body weight 67.04 kg David Waters RN INVASIVE Work Phone: [facility] 05-07-2024 14:32-0400 Diastolic blood pressure 71 mm[Hg] David Waters RN INVASIVE Work Phone: [facility] 05-07-2024 14:32-0400 Heart rate 78 /min David Jt RN INVASIVE Work Phone: [facility] 05-07-2024 14:32-0400 SaO2% (BldA) [Mass fraction] 94 % David Waters RN INVASIVE Work Phone: [facility] 05-07-2024 14:32-0400 Systolic blood pressure 121 mm[Hg] David Waters RN INVASIVE Work Phone: [facility] 03-26-2024 13:31-0400 Body temperature 98.4 [degF] CJ Hassmann DPM Work Phone: [facility] 03-26-2024 13:31-0400 Diastolic blood pressure 73 mm[Hg] CJ Hassmann DPM Work Phone: [facility] 03-26-2024 13:31-0400 Heart rate 68 /min CJ Hassmann DPM Work Phone: [facility] 03-26-2024 13:31-0400 SaO2% (BldA) [Mass fraction] 94 % CJ Hassmann DPM Work Phone: [facility] 03-26-2024 13:31-0400 Systolic blood pressure 110 mm[Hg] CJ Hassmann DPM Work Phone: [facility] 02-27-2024 13:37-0400 Body height 167.6 cm Phyllis Mae MD Work Phone: [facility] 02-27-2024 13:37-0400 Body mass index (BMI) [Ratio] 23.57 kg/m2 Phyllis Mae MD Work Phone: [facility] 02-27-2024 13:37-0400 Body weight 66.22 kg Phyllis Mae MD Work Phone: [facility] 02-27-2024 13:37-0400 Diastolic blood pressure 51 mm[Hg] Phyllis Mae MD Work Phone: [facility] 02-27-2024 13:37-0400 Heart rate 70 /min Phyllis Mae MD Work Phone: [facility] 02-27-2024 13:37-0400 Systolic blood pressure 93 mm[Hg] Phyllis Mae MD Work Phone: [facility] 02-22-2024 12:44-0400 Body height 167.6 cm Scott Lambert PA-C Work Phone: [facility] 02-22-2024 12:44-0400 Body mass index (BMI) [Ratio] 22.76 kg/m2 Scott Lambert PA-C Work Phone: [facility] 02-22-2024 12:44-0400 Body temperature 98.01 [degF] Scott Lambert PA-C Work Phone: [phone] [place] [address] 02-22-2024 12:44-0400 Body weight 63.96 kg Scott Lambert PA-C Work Phone: [facility] 02-22-2024 12:44-0400 Diastolic blood pressure 44 mm[Hg] Scott Lambert PA-C Work Phone: [facility] 02-22-2024 12:44-0400 Heart rate 80 /min Scott Lambert PA-C Work Phone: [facility] 02-22-2024 12:44-0400 Respiratory rate 19 /min Scott Lambert PA-C Work Phone: [facility] 02-22-2024 12:44-0400 SaO2% (BldA) [Mass fraction] 96 % Scott Lambert PA-C Work Phone: [facility] 02-22-2024 12:44-0400 Systolic blood pressure 65 mm[Hg] Scott Lambert PA-C Work Phone: [phone] [place] [address] 12-19-2023 14:02-0500 Body temperature 98.4 [degF] CJ Hassmann DPM Work Phone: [facility] 12-19-2023 14:02-0500 Diastolic blood pressure 61 mm[Hg] BHUMIKA Duquemann DPM Work Phone: [facility] 12-19-2023 14:02-0500 Heart rate 79 /min BHUMIKA Lin DPM Work Phone: [facility] 12-19-2023 14:02-0500 Systolic blood pressure 105 mm[Hg] BHUMIKA Lin DPM Work Phone: [facility] 12-14-2023 12:52-0500 Body height 167.6 cm Phyllis Mae MD Work Phone: [facility] 12-14-2023 12:52-0500 Body mass index (BMI) [Ratio] 22.76 kg/m2 Phyllis Mae MD Work Phone: [facility] 12-14-2023 12:52-0500 Body weight 63.96 kg Phyllis Mae MD Work Phone: [facility] 12-14-2023 12:52-0500 Diastolic blood pressure 67 mm[Hg] Phyllis Mae MD Work Phone: [facility] 12-14-2023 12:52-0500 Heart rate 62 /min Phyllis Mae MD Work Phone: [facility] 12-14-2023 12:52-0500 Systolic blood pressure 112 mm[Hg] Phyllis Mae MD Work Phone: [facility] 10-18-2023 12:56-0500 Diastolic blood pressure 83 mm[Hg] Fior Forbes CNP Work Phone: [facility] 10-18-2023 12:56-0500 Heart rate 88 /min Fior Forbes CNP Work Phone: [facility] 10-18-2023 12:56-0500 Systolic blood pressure 135 mm[Hg] Fior Forbes CNP Work Phone: [facility] 10-18-2023 12:49-0500 Body mass index (BMI) [Ratio] 23.98 kg/m2 Fior Forbes RN INVASIVE Work Phone: [facility] 10-18-2023 12:49-0500 Body weight 67.41 kg Fior Forbes RN INVASIVE Work Phone: [facility] 10-11-2023 12:52-0500 Body height 167.6 cm Deshaun Rodrigues MD Work Phone: [facility] 10-11-2023 12:52-0500 Body mass index (BMI) [Ratio] 23.89 kg/m2 Deshaun Rodrigues MD Work Phone: [facility] 10-11-2023 12:52-0500 Body weight 67.13 kg Deshaun Rodrigues MD Work Phone: [facility] 10-11-2023 12:52-0500 Diastolic blood pressure 70 mm[Hg] Deshaun Rodrigues MD Work Phone: [facility] 10-11-2023 12:52-0500 Heart rate 75 /min Deshaun Rodrigues MD Work Phone: [facility] 10-11-2023 12:52-0500 Respiratory rate 16 /min Deshaun Rodrigues MD Work Phone: [facility] 10-11-2023 12:52-0500 SaO2% (BldA) [Mass fraction] 97 % Deshaun Rodrigues MD Work Phone: [facility] 10-11-2023 12:52-0500 Systolic blood pressure 105 mm[Hg] Deshaun Rodrigues MD Work Phone: [facility] 08-22-2023 13:22-0400 Body height 167.6 cm Phyllis Mae MD Work Phone: [facility] 08-22-2023 13:22-0400 Body mass index (BMI) [Ratio] 24.21 kg/m2 Phyllis Mae MD Work Phone: [facility] 08-22-2023 13:22-0400 Body weight 68.04 kg Phyllis Mae MD Work Phone: [facility] 08-22-2023 13:22-0400 Diastolic blood pressure 62 mm[Hg] Phyllis Mae MD Work Phone: [facility] 08-22-2023 13:22-0400 Heart rate 67 /min Phyllis Mae MD Work Phone: [facility] 08-22-2023 13:22-0400 SaO2% (BldA) [Mass fraction] 92 % Phyllis Mae MD Work Phone: [facility] 08-22-2023 13:22-0400 Systolic blood pressure 114 mm[Hg] Phyllis Mae MD Work Phone: [facility] 07-12-2023 12:49-0400 Body height 167.6 cm Arianna Ream RN INVASIVE Work Phone: [facility] 07-12-2023 12:49-0400 Body mass index (BMI) [Ratio] 24.37 kg/m2 Arianna Ream RN INVASIVE Work Phone: [facility] 07-12-2023 12:49-0400 Body weight 68.49 kg Arianna Ream RN INVASIVE Work Phone: [facility] 07-12-2023 12:49-0400 Diastolic blood pressure 65 mm[Hg] Arianna Ream RN INVASIVE Work Phone: [facility] 07-12-2023 12:49-0400 Heart rate 70 /min Arianna Ream RN INVASIVE Work Phone: [facility] 07-12-2023 12:49-0400 SaO2% (BldA) [Mass fraction] 95 % Arianna Ream RN INVASIVE Work Phone: [facility] 07-12-2023 12:49-0400 Systolic blood pressure 119 mm[Hg] Arianna Ream RN INVASIVE Work Phone: [facility] 04-05-2023 14:10-0400 Body height 167.6 cm Deshaun Rodrigues MD Work Phone: [facility] 04-05-2023 14:10-0400 Body mass index (BMI) [Ratio] 25.82 kg/m2 Deshaun Rodrigues MD Work Phone: [facility] 04-05-2023 14:10-0400 Body weight 72.58 kg Deshaun Rodrigues MD Work Phone: [facility] 04-05-2023 14:10-0400 Diastolic blood pressure 58 mm[Hg] Deshaun Rodrigues MD Work Phone: [facility] 04-05-2023 14:10-0400 Heart rate 62 /min Deshaun Rodrigues MD Work Phone: [facility] 04-05-2023 14:10-0400 Respiratory rate 16 /min Deshaun Rodrigues MD Work Phone: [facility] 04-05-2023 14:10-0400 SaO2% (BldA) [Mass fraction] 96 % Deshaun Rodrigues MD Work Phone: [facility] 04-05-2023 14:10-0400 Systolic blood pressure 101 mm[Hg] Deshaun Rodrigues MD Work Phone: [facility] 03-07-2023 13:42-0400 Body height 167.6 cm Phyllis Mae MD Work Phone: [facility] 03-07-2023 13:42-0400 Body mass index (BMI) [Ratio] 23.89 kg/m2 Phyllis Mae MD Work Phone: [facility] 03-07-2023 13:42-0400 Body weight 67.13 kg Phyllis Mae MD Work Phone: [facility] 03-07-2023 13:42-0400 Diastolic blood pressure 78 mm[Hg] Phyllis Mae MD Work Phone: [facility] 03-07-2023 13:42-0400 Heart rate 60 /min Phyllis Mae MD Work Phone: [facility] 03-07-2023 13:42-0400 Systolic blood pressure 132 mm[Hg] Phyllis Mae MD Work Phone: [facility] 11-09-2022 17:01-0500 Body height 170.1 cm Phyllis Mae Other Phone: [facility] 11-09-2022 17:01-0500 Body temperature 98.06 [degF] Phyllis Mae Other Phone: [facility] 11-09-2022 17:01-0500 Diastolic blood pressure 61 mm[Hg] Phyllis Mae Other Phone: [facility] 11-09-2022 17:01-0500 Heart rate 68 /min Phyllis Mae Other Phone: [facility] 11-09-2022 17:01-0500 Respiratory rate 23 /min Phyllis Mae Other Phone: [facility] 11-09-2022 17:01-0500 SaO2% (BldA) [Mass fraction] 96 % Phyllis Mae Other Phone: [facility] 11-09-2022 17:01-0500 Systolic blood pressure 97 mm[Hg] Phyllis Mae Other Phone: [facility] 09-20-2022 12:54-0500 Body height 167.64 cm Phyllis Mae Work Phone: [facility] Work Phone: 09-20-2022 12:54-0500 Body mass index (BMI) [Ratio] 24.37 kg/m2 Phyllis Mae Work Phone: [facility] Work Phone: 09-20-2022 12:54-0500 Body surface area Derived from formula 1.77 m2 Phyllis Mae Work Phone: [facility] Work Phone: 09-20-2022 12:54-0500 Body weight 68.49 kg Phyllis Mae Work Phone: [facility] Work Phone: 09-20-2022 12:54-0500 Diastolic blood pressure 76 mm[Hg] Phyllis Mae Work Phone: [facility] [facility] Work Phone: 09-20-2022 12:54-0500 Heart rate 84 /min Phyllis Mae Work Phone: [facility] Work Phone: 09-20-2022 12:54-0500 Systolic blood pressure 110 mm[Hg] Phyllis Mae Work Phone: [facility] Work Phone: 06-16-2022 12:41-0400 Diastolic blood pressure 72 mm[Hg] Deshaun Rodrigues MD Work Phone: [facility] 06-16-2022 12:41-0400 Heart rate 78 /min Deshaun Rodrigues MD Work Phone: [facility] 06-16-2022 12:41-0400 Respiratory rate 16 /min Deshaun Rodrigues MD Work Phone: [facility] 06-16-2022 12:41-0400 SaO2% (BldA) [Mass fraction] 95 % Deshaun Rodrigues MD Work Phone: [facility] 06-16-2022 12:41-0400 Systolic blood pressure 129 mm[Hg] Deshaun Rodrigues MD Work Phone: [facility] 06-10-2022 11:10-0400 Body height 170.2 cm Erica Gardner PA-C Work Phone: [facility] 06-10-2022 11:10-0400 Body mass index (BMI) [Ratio] 23.96 kg/m2 Erica Gardner PA-C Work Phone: [facility] 06-10-2022 11:10-0400 Body weight 69.4 kg Erica Ajey PA-C Work Phone: [facility] 06-10-2022 11:10-0400 Diastolic blood pressure 66 mm[Hg] Erica Gardner PA-C Work Phone: [facility] 06-10-2022 11:10-0400 Heart rate 79 /min Erica Gardner PA-C Work Phone: [facility] 06-10-2022 11:10-0400 Systolic blood pressure 116 mm[Hg] Erica Kendra PA-C Work Phone: [facility] 06-02-2022 15:31-0400 Body height 170.2 cm Aquiles Herrera MD Work Phone: [facility] 06-02-2022 15:31-0400 Body mass index (BMI) [Ratio] 24.28 kg/m2 Aquiles Herrera MD Work Phone: [facility] 06-02-2022 15:31-0400 Body weight 70.31 kg Aquiles Herrera MD Work Phone: [facility] 06-02-2022 15:31-0400 Diastolic blood pressure 72 mm[Hg] Aquiles Herrera MD Work Phone: [facility] 06-02-2022 15:31-0400 Heart rate 85 /min Aquiles Herrera MD Work Phone: [facility] 06-02-2022 15:31-0400 SaO2% (BldA) [Mass fraction] 93 % Aquiles Herrera MD Work Phone: [facility] 06-02-2022 15:31-0400 Systolic blood pressure 122 mm[Hg] Aquiles Herrera MD Work Phone: [facility] 03-29-2022 11:38-0400 Body height 167.64 cm Phyllis Mae Work Phone: [facility] Work Phone: 03-29-2022 11:38-0400 Body mass index (BMI) [Ratio] 24.37 kg/m2 Phyllis Mae Work Phone: [facility] Work Phone: 03-29-2022 11:38-0400 Body surface area Derived from formula 1.77 m2 Phyllis Mae Work Phone: [facility] Work Phone: 03-29-2022 11:38-0400 Body weight 68.49 kg Phyllisallie Mae Work Phone: [facility] Work Phone: 03-29-2022 11:38-0400 Diastolic blood pressure 74 mm[Hg] Phyllis Mae Work Phone: [facility] Work Phone: 03-29-2022 11:38-0400 Heart rate 79 /min Phyllis Mae Work Phone: [facility] Work Phone: 03-29-2022 11:38-0400 SaO2% (BldA) [Mass fraction] 97 % Phyllisallie Mae Work Phone: [facility] Work Phone: 03-29-2022 11:38-0400 Systolic blood pressure 108 mm[Hg] Phyllis Mae Work Phone: [facility] Work Phone: 03-01-2022 12:58-0400 Body height 167.64 cm Phyllis Mae Work Phone: [facility] Work Phone: 03-01-2022 12:58-0400 Body mass index (BMI) [Ratio] 24.29 kg/m2 Phyllis Taverasabi Work Phone: [facility] Work Phone: 03-01-2022 12:58-0400 Body surface area Derived from formula 1.77 m2 Phyllis Mae Work Phone: [facility] Work Phone: 03-01-2022 12:58-0400 Body weight 68.26 kg Phyllis Mae Work Phone: [facility] Work Phone: 03-01-2022 12:58-0400 Diastolic blood pressure 80 mm[Hg] Phyllis Mae Work Phone: [facility] Work Phone: 03-01-2022 12:58-0400 Heart rate 91 /min Phyllis Mae Work Phone: [facility] Work Phone: 03-01-2022 12:58-0400 Systolic blood pressure 130 mm[Hg] Phyllis Mae Work Phone: [facility] Work Phone: 01-10-2022 11:22-0400 Body height 170.2 cm Santana Orosco PA-C Work Phone: [facility] 01-10-2022 11:22-0400 Body mass index (BMI) [Ratio] 23.18 kg/m2 Santana Orosco PA-C Work Phone: [facility] 01-10-2022 11:22-0400 Body weight 67.13 kg Santana Orosco PA-C Work Phone: [facility] 01-10-2022 11:22-0400 Diastolic blood pressure 78 mm[Hg] Santana Orosco PA-C Work Phone: [facility] 01-10-2022 11:22-0400 Heart rate 81 /min Santana Orosco PA-C Work Phone: [facility] 01-10-2022 11:22-0400 Systolic blood pressure 123 mm[Hg] Santana Orosco PA-C Work Phone: [facility] 01-04-2022 13:46-0500 Body height 167.64 cm Phyllis Mae Work Phone: [facility] Work Phone: 01-04-2022 13:46-0500 Body mass index (BMI) [Ratio] 23.73 kg/m2 Phyllis Taverasabi Work Phone: [facility] Work Phone: 01-04-2022 13:46-0500 Body surface area Derived from formula 1.75 m2 Phyllis Mae Work Phone: [facility] Work Phone: 01-04-2022 13:46-0500 Body weight 66.68 kg Phyllis Mae Work Phone: [facility] Work Phone: 01-04-2022 13:46-0500 Diastolic blood pressure 92 mm[Hg] Phyllis Taverasabi Work Phone: [facility] Work Phone: 01-04-2022 13:46-0500 Heart rate 85 /min Phyllis Mae Work Phone: [facility] Work Phone: 01-04-2022 13:46-0500 Systolic blood pressure 108 mm[Hg] Phyllis Taverasabi Work Phone: [facility] Work Phone: 10-04-2021 11:35-0500 Body height 167.64 cm Phyllis Mae Work Phone: [facility] Work Phone: 10-04-2021 11:35-0500 Body mass index (BMI) [Ratio] 23.43 kg/m2 Phyllis Taverasabi Work Phone: [facility] Work Phone: 10-04-2021 11:35-0500 Body surface area Derived from formula 1.75 m2 Phyllis Taverasabi Work Phone: [facility] Work Phone: 10-04-2021 11:35-0500 Body weight 65.85 kg Phyllis Taverasabi Work Phone: [facility] Work Phone: 10-04-2021 11:35-0500 Diastolic blood pressure 60 mm[Hg] Phyllis Taverasabi Work Phone: [facility] Work Phone: 10-04-2021 11:35-0500 Systolic blood pressure 100 mm[Hg] Phyllis Taverasabi Work Phone: [facility] Work Phone: 09-14-2021 13:55-0500 Body height 167.64 cm Phyllis Taverasabi Work Phone: [facility] Work Phone: 09-14-2021 13:55-0500 Body mass index (BMI) [Ratio] 23.24 kg/m2 Phyllis Taverasabi Work Phone: [facility] Work Phone: 09-14-2021 13:55-0500 Body surface area Derived from formula 1.74 m2 Phyllis Taverasabi Work Phone: [facility] Work Phone: 09-14-2021 13:55-0500 Body weight 65.31 kg Phyllis Taverasabi Work Phone: [facility] Work Phone: 09-14-2021 13:55-0500 Diastolic blood pressure 80 mm[Hg] Phyllis Asifrrabi Work Phone: [facility] Work Phone: 09-14-2021 13:55-0500 Heart rate 80 /min Phyllis Mae Work Phone: [facility] Work Phone: 09-14-2021 13:55-0500 Systolic blood pressure 128 mm[Hg] Phyllis Taverasabi Work Phone: [facility] Work Phone: 08-24-2021 11:15-0400 Body height 167.64 cm Phyllis Mae Work Phone: [facility] Work Phone: 08-24-2021 11:15-0400 Body mass index (BMI) [Ratio] 22.6 kg/m2 Phyllisallie Mae Work Phone: [facility] Work Phone: 08-24-2021 11:15-0400 Body surface area Derived from formula 1.72 m2 Phyllis Mae Work Phone: [facility] Work Phone: 08-24-2021 11:15-0400 Body weight 63.5 kg Phyllis Mae Work Phone: [facility] Work Phone: 08-24-2021 11:15-0400 Diastolic blood pressure 70 mm[Hg] Phyllis Mae Work Phone: [facility] Work Phone: 08-24-2021 11:15-0400 Heart rate 94 /min Phyllis Mae Work Phone: [facility] Work Phone: 08-24-2021 11:15-0400 SaO2% (BldA) [Mass fraction] 97 % Phyllis Taverasabi Work Phone: [facility] Work Phone: 08-24-2021 11:15-0400 Systolic blood pressure 102 mm[Hg] Phyllis Zarrabi Work Phone: [facility] Work Phone: 08-03-2021 11:25-0400 Body height 170.2 cm David Waters RN INVASIVE Work Phone: [facility] 08-03-2021 11:25-0400 Body mass index (BMI) [Ratio] 21.77 kg/m2 David Waters RN INVASIVE Work Phone: [facility] 08-03-2021 11:25-0400 Body weight 63.05 kg David Waters RN INVASIVE Work Phone: [facility] 08-03-2021 11:25-0400 Diastolic blood pressure 81 mm[Hg] David Waters RN INVASIVE Work Phone: [facility] 08-03-2021 11:25-0400 Heart rate 97 /min David Waters RN INVASIVE Work Phone: [facility] 08-03-2021 11:25-0400 Systolic blood pressure 155 mm[Hg] David Waters RN INVASIVE Work Phone: [facility] 07-12-2021 11:30-0400 Body height 167.64 cm Phyllis Mae Work Phone: [facility] Work Phone: 07-12-2021 11:30-0400 Body mass index (BMI) [Ratio] 21.63 kg/m2 Phyllis Mae Work Phone: [facility] Work Phone: 07-12-2021 11:30-0400 Body surface area Derived from formula 1.69 m2 Phyllis Mae Work Phone: [facility] Work Phone: 07-12-2021 11:30-0400 Body weight 60.78 kg Phyllis Taverasabi Work Phone: [facility] Work Phone: 07-12-2021 11:30-0400 Diastolic blood pressure 60 mm[Hg] Phyllis Mae Work Phone: [facility] Work Phone: 07-12-2021 11:30-0400 Heart rate 76 /min Phyllis Mae Work Phone: [facility] Work Phone: 07-12-2021 11:30-0400 Systolic blood pressure 100 mm[Hg] Phyllis Mae Work Phone: [facility] Work Phone: 06-24-2021 11:16-0400 Body height 170.18 cm Phyllis Mae Work Phone: [facility] Work Phone: 06-24-2021 11:16-0400 Body mass index (BMI) [Ratio] 20.36 kg/m2 Phyllis Mae Work Phone: [facility] Work Phone: 06-24-2021 11:16-0400 Body surface area Derived from formula 1.68 m2 Phyllis Mae Work Phone: [facility] Work Phone: 06-24-2021 11:16-0400 Body temperature 98.2 [degF] Phyllis Mae Work Phone: [facility] Work Phone: 06-24-2021 11:16-0400 Body weight 58.97 kg Phyllis Mae Work Phone: [facility] Work Phone: 06-24-2021 11:16-0400 Diastolic blood pressure 55 mm[Hg] Phyllis Mae Work Phone: [facility] Work Phone: 06-24-2021 11:16-0400 Heart rate 87 /min Phyllis Mae Work Phone: [facility] Work Phone: 06-24-2021 11:16-0400 Respiratory rate 16 /min Phyllis Mae Work Phone: [facility] Work Phone: 06-24-2021 11:16-0400 Systolic blood pressure 83 mm[Hg] Phyllis Mae Work Phone: [facility] Work Phone: 06-01-2021 14:11-0400 Body height 170.18 cm Phyllis Mae Work Phone: [facility] Work Phone: 06-01-2021 14:11-0400 Body mass index (BMI) [Ratio] 19.89 kg/m2 Phyllis Mae Work Phone: [facility] Work Phone: 06-01-2021 14:11-0400 Body surface area Derived from formula 1.67 m2 Phyllis Mae Work Phone: [facility] Work Phone: 06-01-2021 14:11-0400 Body weight 57.61 kg Phyllis Mae Work Phone: [facility] Work Phone: 06-01-2021 14:11-0400 Diastolic blood pressure 70 mm[Hg] Phyllis Mae Work Phone: [facility] Work Phone: 06-01-2021 14:11-0400 Heart rate 88 /min Phyllis Mae Work Phone: [facility] Work Phone: 06-01-2021 14:11-0400 Systolic blood pressure 108 mm[Hg] Phyllis Mae Work Phone: [facility] Work Phone: 05-11-2021 07:47-0400 Body temperature 97.3 [degF] Lev Desai MD Work Phone: [facility] 05-11-2021 07:47-0400 Diastolic blood pressure 66 mm[Hg] Lev Desai MD Work Phone: [facility] 05-11-2021 07:47-0400 Heart rate 66 /min Lev Desai MD Work Phone: [facility] 05-11-2021 07:47-0400 Respiratory rate 16 /min Lev Desai MD Work Phone: [facility] 05-11-2021 07:47-0400 SaO2% (BldA) [Mass fraction] 95 % Lev Desai MD Work Phone: [facility] 05-11-2021 07:47-0400 Systolic blood pressure 125 mm[Hg] Lev Desai MD Work Phone: [facility] 05-11-2021 05:00-0400 Body mass index (BMI) [Ratio] 22.76 kg/m2 Lev Desai MD Work Phone: [facility] 05-11-2021 05:00-0400 Body weight 66.9 kg Lev Desai MD Work Phone: [facility] 04-27-2021 16:03-0400 Respiratory rate 0 /min Lev Desai MD Work Phone: [facility] 04-27-2021 15:12-0400 Body height 171.5 cm Lev Desai MD Work Phone: [facility] 03-24-2021 15:28-0400 Body height 154.1 cm Dylon Galindo MD Work Phone: [facility] 03-24-2021 15:28-0400 Body mass index (BMI) [Ratio] 25.42 kg/m2 Dylon Galindo MD Work Phone: [facility] 03-24-2021 15:28-0400 Body weight 60.33 kg Dylon Galindo MD Work Phone: [facility] 11-23-2020 13:51-0500 BP Diastolic 63 mm[Hg] Aquiles Pagenathalie [facility] 11-23-2020 13:51-0500 BP Systolic 122 mm[Hg] [facility] 11-23-2020 13:51-0500 Pulse (Heart Rate) 97 /min [facility] 11-23-2020 13:01-0500 BMI (Body Mass Index) 22.08 kg/m2 [facility] 11-23-2020 13:0500 Body weight 63.96 kg [facility] 11-23-2020 13:0500 Height 170.2 cm [facility] 08-17-2020 12:36-0400 BMI (Body Mass Index) 22.87 kg/m2 Phyllis Mae [facility] Work Phone: 08-17-2020 12:36-0400 Body weight 66.23 kg Phyllischer Mae [facility] Work Phone: 08-17-2020 12:36-0400 BP Diastolic 92 mm[Hg] Phyllischer Mae [facility] Work Phone: 08-17-2020 12:36-0400 BP Systolic 158 mm[Hg] Phyllischer Mae [facility] Work Phone: 08-17-2020 12:36-0400 BSA (Body Surface Area) 1.77 m2 Phyllis Mae [facility] Work Phone: 08-17-2020 12:36-0400 Height 170.18 cm Phyllischer Mae [facility] Work Phone: 08-17-2020 12:36-0400 Pulse (Heart Rate) 64 /min Phyllischer Mae [facility] Work Phone: 08-03-2020 12:54-0400 BMI (Body Mass Index) 22.87 kg/m2 Erica Gardner [facility] 08-03-2020 12:54-0400 Body weight 66.22 kg Erica Gardner [facility] 08-03-2020 12:54-0400 BP Diastolic 78 mm[Hg] Erica Gardner [facility] 08-03-2020 12:54-0400 BP Systolic 135 mm[Hg] Erica Gardner [facility] 08-03-2020 12:54-0400 Height 170.2 cm Erica Gardner [facility] 08-03-2020 12:54-0400 Pulse (Heart Rate) 81 /min Erica Gardner [facility] 07-20-2020 13:19-0400 BMI (Body Mass Index) 22.71 kg/m2 Phyllis Mae [facility] Work Phone: 07-20-2020 13:19-0400 Body weight 65.77 kg Phyllis Mae [facility] Work Phone: 07-20-2020 13:19-0400 BP Diastolic 82 mm[Hg] Phyllis Mae [facility] Work Phone: Comment on above: Location: [facility]; Position: Sitting 07-20-2020 13:19-0400 BP Systolic 144 mm[Hg] Phyllis Mae [facility] Work Phone: Comment on above: Location: [place]; Position: Sitting 07-20-2020 13:19-0400 BSA (Body Surface Area) 1.76 m2 Phyllis Mae [facility] Work Phone: 07-20-2020 13:19-0400 Height 170.18 cm Phyllischer Mae [facility] Work Phone: 07-20-2020 13:19-0400 Pulse (Heart Rate) 84 /min Phyllis Mae [facility] Work Phone: 06-10-2020 19:01-0400 BP Diastolic 81 mm[Hg] Ray Scherer [facility] 06-10-2020 19:01-0400 BP Systolic 176 mm[Hg] Ray Scherer [facility] 06-10-2020 19:01-0400 Pulse (Heart Rate) 74 /min [facility] 06-10-2020 19:01-0400 Pulse Oximetry 97 % Ray [facility] 06-10-2020 17:29-0400 BMI (Body Mass Index) 23.49 kg/m2 Ray [facility] 06-10-2020 17:29-0400 Body Temperature 98.4 [degF] Ray [facility] 06-10-2020 17:29-0400 Body weight 68.04 kg Ray [facility] 06-10-2020 17:29-0400 Height 170.2 cm Ray [facility] 06-10-2020 17:29-0400 Respiratory Rate 16 /min Ray [facility] 05-19-2020 14:42-0400 BMI (Body Mass Index) 23.06 kg/m2 Phyllis Mae [facility] Work Phone: 05-19-2020 14:42-0400 Body weight 66.79 kg Phyllis Mae [facility] Work Phone: 05-19-2020 14:42-0400 BP Diastolic 80 mm[Hg] Phyllis Mae [facility] Work Phone: Comment on above: Location: [facility]; Position: Sitting 05-19-2020 14:42-0400 BP Systolic 140 mm[Hg] Phyllis Mae [facility] Work Phone: Comment on above: Location: [facility]; Position: Sitting 05-19-2020 14:42-0400 BSA (Body Surface Area) 1.78 m2 Phyllis Mae [facility] Work Phone: 05-19-2020 14:42-0400 Height 170.18 cm Phyllis Mae [facility] Work Phone: 05-19-2020 14:42-0400 Pulse (Heart Rate) 82 /min Phyllis Mae [facility] Work Phone: 04-28-2020 14:29-0400 Diastolic blood pressure 56 ml Aquiles Herrera [facility] 04-28-2020 14:29-0400 Systolic blood pressure 15 ml Aquiles Herrera [facility] 04-28-2020 10:25-0400 BMI (Body Mass Index) 23.47 kg/m2 Aquiles Herrera [facility] 04-28-2020 10:25-0400 Body weight 68 kg Aquiles Herrera [facility] 04-28-2020 10:25-0400 BP Diastolic 85 mm[Hg] Aquiles Lennathalie [facility] 04-28-2020 10:25-0400 BP Systolic 155 mm[Hg] Aquiles Pagenathalie [facility] 04-28-2020 10:25-0400 Height 170.2 cm Aquiles Pagenathalie [facility] 04-28-2020 10:25-0400 Pulse (Heart Rate) 76 /min Aquiles Pagenathalie [facility] 04-14-2020 16:00-0400 Pulse (Heart Rate) 72 /min Ray [facility] 04-14-2020 16:00-0400 Pulse Oximetry 93 % [facility] 04-14-2020 15:45-0400 BP Diastolic 59 mm[Hg] [facility] 04-14-2020 15:45-0400 BP Systolic 91 mm[Hg] [facility] 04-14-2020 14:43-0400 Body Temperature 98.8 [degF] [facility] 04-14-2020 13:44-0400 Respiratory Rate 18 /min [facility] 04-14-2020 13:36-0400 Respiratory rate 0 /min [facility] 12-27-2019 10:54-0500 BMI (Body Mass Index) 23.49 kg/m2 David Waters [facility] 12-27-2019 10:54-0500 Body weight 68.04 kg David Waters [facility] 12-27-2019 10:54-0500 BP Diastolic 84 mm[Hg] Davidandrew Waters [facility] 12-27-2019 10:54-0500 BP Systolic 171 mm[Hg] Davidandrew Waters [facility] 12-27-2019 10:54-0500 Height 170.2 cm David Waters [facility] 12-27-2019 10:54-0500 Pulse (Heart Rate) 73 /min David Waters [facility] 12-04-2019 15:20-0500 BP Diastolic 84 mm[Hg] Cameron Munguia [facility] Comment on above: L 12-04-2019 15:20-0500 BP Systolic 163 mm[Hg] Cameron Munguia [facility] Comment on above: 12-04-2019 14:58-0500 BMI (Body Mass Index) 23.02 kg/m2 Cameron Munguia [facility] 12-04-2019 14:58-0500 Body weight 66.68 kg Cameron Munguia [facility] 12-04-2019 14:58-0500 Height 170.2 cm Cameron Maiashish [facility] 12-04-2019 14:58-0500 Pulse (Heart Rate) 56 /min Cameron Munguia [facility] 10-24-2019 15:44-0500 BP Diastolic 93 mm[Hg] Aquiles Herrera [facility] 10-24-2019 15:44-0500 BP Systolic 170 mm[Hg] Aquiles Lennathalie [facility] 10-24-2019 15:42-0500 BMI (Body Mass Index) 23.02 kg/m2 [facility] 10-24-2019 15:42-0500 Body weight 66.68 kg Aquiles Lennathalie [facility] 10-24-2019 15:42-0500 Pulse (Heart Rate) 78 /min Aquiles Lennathalie [facility] 10-24-2019 15:42-0500 Pulse Oximetry 96 % Aquiles Pagenathalie [facility] 06-05-2019 13:30-0400 BP Diastolic 80 mm[Hg] damián [facility] 06-05-2019 13:30-0400 BP Systolic 162 mm[Hg] [facility] 06-05-2019 13:30-0400 Pulse (Heart Rate) 60 /min [facility] 06-05-2019 13:30-0400 Pulse Oximetry 95 % [facility] 06-05-2019 13:30-0400 Respiratory Rate 19 /min [facility] 06-05-2019 12:21-0400 BMI (Body Mass Index) 22.87 kg/m2 [facility] 06-05-2019 12:21-0400 Body Temperature 97.9 [degF] [facility] 06-05-2019 12:21-0400 Body weight 66.22 kg Bret Fuentes [facility] 06-05-2019 12:21-0400 Height 170.2 cm Bret Fuentes [facility] 05-27-2019 12:33-0400 BP Diastolic 97 mm[Hg] Cornelia Martin [facility] 05-27-2019 12:33-0400 BP Systolic 148 mm[Hg] Cornelia Martin [facility] 05-27-2019 12:33-0400 Pulse Oximetry 99 % Cornelia [facility] 05-27-2019 11:25-0400 BMI (Body Mass Index) 22.87 kg/m2 Cornelia Martin [facility] 05-27-2019 11:25-0400 Body Temperature 98.2 [degF] Cornelia Martin [facility] 05-27-2019 11:25-0400 Body weight 66.22 kg Cornelia Martin [facility] 05-27-2019 11:25-0400 Height 170.2 cm Cornelia Martin [facility] 05-27-2019 11:25-0400 Pulse (Heart Rate) 84 /min [facility]elia [facility] 05-27-2019 11:25-0400 Respiratory Rate 18 /min Cornelia [facility] 05-27-2019 10:55-0400 BMI (Body Mass Index) 22.87 kg/m2 [facility] 10:55-0400 Body Temperature 98.29 [degF] Guillermo [facility] 05-27-2019 10:55-0400 Body weight 66.22 kg [facility] 05-27-2019 10:55-0400 BP Diastolic 83 mm[Hg] [facility] 05-27-2019 10:55-0400 BP Systolic 146 mm[Hg] [facility] 05-27-2019 10:55-0400 Pulse (Heart Rate) 92 /min [facility] 05-27-2019 10:55-0400 Pulse Oximetry 84 % [facility]2019 13:19-0400 BMI (Body Mass Index) 23.02 kg/m2 Aquiles Herrera [facility] 04-01-2019 13:19-0400 BP Diastolic 92 mm[Hg] Aquiles Herrera [facility] 04-01-2019 13:19-0400 BP Systolic 165 mm[Hg] Aquiles Herrera [facility] 04-01-2019 13:190400 Height 170.2 cm Aquiles Herrera [facility] 04-01-2019 13:19-0400 Pulse (Heart Rate) 81 /min Aquiles Pagenathalie [facility] 04-01-2019 13:19-0400 Pulse Oximetry 98 % Aquiles Herrera [facility] 04-01-2019 13:19-0400 Weight 66.68 kg Aquiles Pagenathalie [facility] 01-25-2019 09:09-0400 BMI (Body Mass Index) 23.65 kg/m2 [facility]illermo [facility] 01-25-2019 09:09-0400 Body Temperature 97.81 [degF] [facility] 01-25-2019 09:09-0400 Body weight 68.49 kg Guill[facility] 01-25-2019 09:09-0400 BP Diastolic 90 mm[Hg] [facility] 01-25-2019 09:09-0400 BP Systolic 183 mm[Hg] [facility]illermo [facility] 01-25-2019 09:09-0400 Height 170.2 cm [facility] 01-25-2019 09:09-0400 Pulse (Heart Rate) 83 /min [facility] 01-22-2019 13:-0400 BMI (Body Mass Index) 23.15 [facility]-22-2019 13:26-0400 BP Di[facility] 60 mm[Hg[facility] 01-22-2019 13:26-0400 BP Systolic 140 mm[Hg[facility] 01-22-2019 13:26-0400 Pulse (Heart Rate) 92 /[facility] 01-22-2019 13:26-0400 Pulse Oximetry 92 % Lola [facility] 01-22-2019 13:26-0400 Weight 67.04 kg [facility] 11-28-2018 12:53-0500 BP Diastolic 79 mm[Hg] [facility] 11-28-2018 12:53-0500 BP Systolic 121 mm[Hg] [facility] 11-28-2018 12:50-0500 BMI (Body Mass Index) 23.34 kg/m2 [facility] 11-28-2018 12:50-0500 Body weight 67.59 kg [facility] 11-28-2018 12:50-0500 Height 170.2 cm [facility] 11-28-2018 12:50-0500 Pulse (Heart Rate) 83 /min [facility] 09-28-2018 09:25-0500 BMI (Body Mass Index) 23.71 kg/m2 [facility] 09-28-2018 09:25-0500 Body Temperature 97.81 [degF] [facility] 09-28-2018 09:25-0500 BP Diastolic 76 mm[Hg] [facility] 09-28-2018 09:25-0500 BP Systolic 169 mm[Hg] [facility] 09-28-2018 09:25-0500 Height 170.2 cm [facility] 09-28-2018 09:25-0500 Pulse (Heart Rate) 77 /min [facility] 09-28-2018 09:25-0500 Pulse Oximetry 90 % [facility]ill[facility] 09-28-2018 09:25-0500 Weight 68.67 kg [facility]ill[facility] 01-04-2018 10:46-0500 BMI (Body Mass Index) 23.87 kg/m2 [facility] 01-04-2018 10:46-0500 Body Temperature 97.5 [degF] [facility] 01-04-2018 10:46-0500 BP Diastolic 94 mm[Hg] [facility] 01-04-2018 10:46-0500 BP Systolic 154 mm[Hg] [facility] 01-04-2018 10:46-0500 Height 172.7 cm Guillermo Westnathan [facility] 01-04-2018 10:46-0500 Pulse (Heart Rate) 85 /min Guillermo Yipwanathan [facility] 01-04-2018 10:46-0500 Pulse Oximetry 93 % [facility] 01-04-2018 10:46-0500 Weight 71.22 kg [facility] 11-22-2017 10:15-0500 BMI (Body Mass Index) 24.37 kg/m2 Tristen Menjivar [facility] Work Phone: 11-22-2017 10:15-0500 BP Diastolic 76 mm[Hg] Tristenrachid Morganhta [facility] Work Phone: 11-22-2017 10:15-0500 BP Systolic 137 mm[Hg] Tristenrachid Menjivar [facility] Work Phone: 11-22-2017 10:15-0500 Height 167.6 cm Tristen Menjivar [facility] Work Phone: 11-22-2017 10:15-0500 Pulse (Heart Rate) 63 /min Tristen Menjivar [facility] Work Phone: 11-22-2017 10:15-0500 Pulse Oximetry 97 % Tristen Menjivar [facility] Work Phone: 11-22-2017 10:15-0500 Weight 68.49 kg Tristenrachid Menjivar [facility] Work Phone: 10-16-2017 15:35-0500 BMI (Body Mass Index) 24.21 kg/m2 Aquiles Herrera [facility] Work Phone: 10-16-2017 15:35-0500 BP Diastolic 74 mm[Hg] Aquiles Herrera [facility] Work Phone: 10-16-2017 15:35-0500 BP Systolic 135 mm[Hg] Aquiles Herrera [facility] Work Phone: 10-16-2017 15:35-0500 Height 167.6 cm Aquiles Herrera [facility] Work Phone: 10-16-2017 15:35-0500 Pulse (Heart Rate) 65 /min Aquiles Herrera [facility] Work Phone: 10-16-2017 15:35-0500 Pulse Oximetry 94 % Aquiles Herrera [facility] Work Phone: 10-16-2017 15:35-0500 Weight 68.04 kg Aquiles Herrera [facility] Work Phone: 09-07-2017 11:18-0500 BMI (Body Mass Index) 25.29 kg/m2 Guillermo Dweitt [facility] Work Phone: 09-07-2017 11:18-0500 BP Diastolic 85 mm[Hg] Guillermo Dewitt [facility] Work Phone: 09-07-2017 11:18-0500 BP Systolic 117 mm[Hg] Guillermo Dewitt [facility] Work Phone: 09-07-2017 11:18-0500 Height 167.6 cm Guillermo Westnathan [facility] Work Phone: 09-07-2017 11:18-0500 Pulse (Heart Rate) 100 /min Guillermo Dewitt [facility] Work Phone: 09-07-2017 11:18-0500 Weight 71.08 kg Guillermo Dewitt [facility] Work Phone: 08-17-2017 09:01-0400 BMI (Body Mass Index) 26.05 kg/m2 Guillermo Dewitt [facility] Work Phone: 08-17-2017 09:01-0400 BP Diastolic 67 mm[Hg] Guillermo Dewitt [facility] Work Phone: 08-17-2017 09:01-0400 BP Systolic 118 mm[Hg] Guillermo Westnathan [facility] Work Phone: 08-17-2017 09:010400 Height 167.6 cm Guillermo Dewitt [facility] Work Phone: 08-17-2017 09:01-0400 Pulse (Heart Rate) 68 /min Guillermo Dewitt [facility] Work Phone: 08-17-2017 09:010400 Weight 73.21 kg Guillermo Westnathan [facility] Work Phone: Encounters Encounter Date Encounter Type Care Provider Facility Start: 04-17-2025 End: 04-17-[address] Deshaun Salcedo MD -[facility] Work Phone: Start: 04-17-2025 End: 04-17-[address] Phyllis Mae MD Work Phone: [facility] Work Phone: Start: 04-16-2025 [facility] Start: 04-16-2025 Registered Referred Manohar Pablo MD -[facility] Work Phone: Start: 04-10-2025 End: 04-10-2025 Emergency department patient visit Dr. Phyllis Mae MD Work Phone: -Emergency Department Work Phone: Start: 02-23-2025 ambulatory Sharmila Agarwal ty:[facility] Start: 02-23-[address] Sharmila Arteaga MD -[facility] Work Phone: Start: 02-19-2025 End: 02-19-2025 Departed Referred Manohar Pablo MD -[facility] Work Phone: Start: 02-19-2025 End: 02-19-2025 ambulatory Phyllis Mae Facility:[facility] Start: 01-27-2025 End: 01-27-[address] Phyllis Mae MD Work Phone: [facility] Work Phone: Start: 01-27-2025 End: 01-27-[address] Sharmila Arteaga MD [facility] Work Phone: Start: 01-27-2025 End: 01-27-2025 ambulatory Sharmila LOTT Facility:[facility] Start: 01-02-2025 End: 01-02-2025 [facility] Start: 01-02-2025 End: 01-02-2025 Office outpatient visit 15 minutes Etelvina Lin DPM Work Phone: [facility] Comment on above: Onychodystrophy (Linda juanis Dx); Onychomycosis; PVD (peripheral vascular disease); Diabetic foot (HCC); Xerosis of skin Start: 12-24-2024 End: 12-24-[address] Phyllis Mae MD Work Phone: [facility] Work Phone: Start: 12-24-2024 End: 12-24-[address] Phyllis Mae MD Work Phone: -Laboratory Work Phone: Start: 12-24-2024 End: 12-24-2024 ambulatory [facility] Facility:[facility] Start: 12-05-2024 End: 12-05-2024 Office outpatient visit 25 minutes Phyllis Mae MD Work Phone: [facility] Comment on above: Fatigue, unspecified type (Primary Dx); Chronic obstructive pulmonary disease, unspecified COPD type (Multi); Healthcare maintenance; Smoker; Type 2 diabetes mellitus with hyperglycemia, with long-term current use of insulin; Mixed hyperlipidemia; Anemia, unspecified type; Prostate cancer screening; High serum folic acid level; CRF (chronic renal failure), stage 3 (moderate) (Multi); Need for influenza vaccination; Centrilobular emphysema (Multi) Start: 12-05-2024 End: 12-05-2024 Patient encounter status Phyllis Mae MD Work Phone: [facility] Work Phone: Start: 12-05-2024 End: 12-05-2024 ambulatory [facility] Ambulatory Start: 12-02-2024 End: 12-02-2024 [facility] Work Phone: Start: 12-02-2024 End: 12-02-2024 ambulatory [facility] Facility:[facility] Start: 11-25-2024 End: 11-25-2024 Refill Fior Forbes CNP Work Phone: [facility] [place] Comment on above: 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, with long-term current use of insulin (HCC) (Primary Dx) Start: 11-21-2024 End: 11-21-2024 Documentation procedure Fior Forbes CNP Work Phone: [facility] Start: 11-12-2024 End: 11-12-2024 Refill Fior Forbes CNP Work Phone: [facility] Start: 11-07-2024 End: 11-07-2024 Refill Fior Forbes CNP Work Phone: [facility] Start: 11-05-2024 End: 11-05-2024 Assay of hemosiderin, quant Phyllis Mae MD Work Phone: [facility] Work Phone: Start: 11-05-2024 End: 11-05-2024 Patient encounter procedure Phyllis Mae MD Work Phone: [facility] Comment on above: Routine general medi sheldon examination at health care facility (Primary Dx); Chronic obstructive pulmonary disease, unspecified COPD type (Multi); Essential tremor; Type 2 diabetes mellitus with hyperglycemia, with long-term current use of insulin; Hypertension associated with type 2 diabetes mellitus (Multi); Mixed hyperlipidemia; Thrombocytopenia ([facility]); Folate deficiency; CRF (chronic renal failure), stage 3 (moderate) ([facility]); Chronic fatigue; Anemia, unspecified type; Weakness of both arms; Weakness of both legs; Smoker Start: 11-05-2024 End: 11-05-2024 Encounter for general adult medical examination without abnormal findings [facility] Ambulatory Start: 11-05-2024 End: 11-05-2024 Refill Fior Forbes CNP Work Phone: [facility] Comment on above: 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, with long-term current use of insulin (HCC) (Primary Dx) Start: 10-07-2024 End: 10-08-2024 Refill David Waters CNP Work Phone: [facility] Comment on above: 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, with long-term current use of insulin (HCC) Start: 10-03-2024 End: 10-03-2024 Office outpatient visit 25 minutes Cameron Munguia DO Work Phone: [facility] Comment on above: History of carotid e ndarterectomy (Primary Dx); Stenosis of left carotid artery; Neurogenic claudication; PAD (peripheral artery disease) (HCC); Type 2 diabetes mellitus with stage 3b chronic kidney disease, with long-term current use of insulin (HCC); Tobacco use Start: 10-03-2024 End: 10-03-2024 Office outpatient visit 10 minutes BHUMIKA Lin DPM Work Phone: [facility] Comment on above: Onychodystrophy (Linda juanis Dx); Onychomycosis; PVD (peripheral vascular disease) ([facility]); Tobacco use; Diabetic foot (HCC); Xerosis of skin Start: 10-03-2024 End: 10-03-2024 ambulatory [facility] Start: 09-16-2024 End: 09-16-2024 ambulatory [facility] Start: 09-10-2024 End: 09-11-2024 Refill Fior Forbes CNP Work Phone: [facility] Comment on above: 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, with long-term current use of insulin (HCC) (Primary Dx) Start: 09-09-2024 End: 09-09-2024 Office outpatient visit 25 minutes Fior Forbes CNP Work Phone: [facility] Comment on above: 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, with long-term current use of insulin (HCC) (Primary Dx); Dyslipidemia; Essential hypertension Chest pain, unspecif ied type (Primary Dx); History of CVA (cerebrovascular accident); Essential hypertension; PVD (peripheral vascular disease) (HCC) Start: 09-09-2024 End: 09-09-2024 ambulatory [facility] Start: 09-04-2024 End: 09-04-2024 ambulatory [facility] Ambulatory Start: 07-25-2024 End: 07-25-2024 ambulatory [facility] Ambulatory Start: 07-25-2024 End: 07-25-2024 Office outpatient visit 25 minutes Phyllis Mae MD Work Phone: [facility] Comment on above: Thrombocytopenia ([facility] S-HCC) (Primary Dx); Chronic obstructive pulmonary disease, unspecified (Multi); Megaloblastic anemia; Folate deficiency; Fatigue, unspecified type; CRF (chronic renal failure), stage 3 (moderate) (Multi); Type 2 diabetes mellitus with hyperglycemia, with long-term current use of insulin (Multi) Start: 07-09-2024 End: 07-09-2024 ambulatory [facility] Start: 06-27-2024 End: 06-27-2024 Patient encounter procedure BHUMIKA Lin DPM Work Phone: [facility] Comment on above: Onychodystrophy (Linda juanis Dx); Onychomycosis; PVD (peripheral vascular disease) (HCC); Tobacco use; Diabetic foot (HCC); Toe pain, bilateral Start: 06-27-2024 End: 07-01-2024 ambulatory [facility] Start: 05-28-2024 End: 05-28-2024 ambulatory [facility] Ambulatory Start: 05-14-2024 End: 05-18-2024 ambulatory [facility] Start: 05-14-2024 End: 05-14-2024 Office outpatient visit 25 minutes BHUMIKA Lin DPM Work Phone: [facility] Comment on above: Ingrown toenail (Linda juanis Dx); Paronychia of great toe; PVD (peripheral vascular disease) (HCC); Tobacco use; Xerosis of skin; Diabetic foot (HCC) Start: 05-07-2024 End: 05-07-2024 Office outpatient visit 25 minutes David Waters CNP Work Phone: [facility] Comment on above: 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, with long-term current use of insulin (HCC) (Primary Dx) Start: 05-07-2024 End: 05-07-2024 ambulatory [facility] Start: 04-25-2024 End: 04-25-2024 ambulatory [facility] Start: 03-26-2024 End: 03-26-2024 Office outpatient visit 15 minutes BHUMIKA Lin DPM Work Phone: [facility] Comment on above: Diabetic foot (HCC) (Primary Dx); PVD (peripheral vascular disease) (HCC); Type 2 diabetes mellitus with stage 3b chronic kidney disease, with long-term current use of insulin (HCC); Claudication of lower extremity (HCC); Tobacco use; Xerosis of skin; Onychodystrophy; Onychomycosis; Toe pain, bilateral Start: 03-26-2024 End: 03-26-2024 ambulatory [facility] Start: 03-21-2024 End: 03-21-2024 ambulatory [facility] Start: 03-11-2024 ambulatory FIOR FORBES [facility] Start: 03-08-2024 End: 03-12-2024 ambulatory [facility] Start: 02-29-2024 ambulatory [facility] Start: 02-27-2024 End: 02-27-2024 Assay of hemosiderin, quant Phyllis Mae MD Work Phone: [facility] Work Phone: Start: 02-27-2024 End: 02-27-2024 Patient encounter procedure Phyllis Mae MD Work Phone: [facility] Comment on above: Routine general medi sheldon examination at health care facility (Primary Dx); Superficial gastritis without hemorrhage, unspecified chronicity; Weakness of upper extremity; Weakness of both lower extremities; Recurrent falls; Neck pain; H/O: CVA (cerebrovascular accident); Essential tremor; Neurogenic claudication; Stable angina pectoris ([facility]-HCC); Hypertension associated with type 2 diabetes mellitus (Multi); Encounter for vaccination; 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Multi); Hypotensive episode Start: 02-22-2024 End: 02-22-2024 Emergency department patient visit [facility] Start: 02-22-2024 End: 02-22-2024 Patient encounter procedure Scott Warren PA-C Work Phone: [facility] Comment on above: Hypotension, unspeci fied hypotension type (Primary Dx); Upper respiratory tract infection, unspecified type Start: 02-22-2024 End: 02-22-2024 ambulatory [facility] Start: 02-21-2024 Telephone encounter Fior Forbes CNP Work Phone: [facility] Comment on above: Medication Refill 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, with long-term current use of insulin (HCC) Start: 02-14-2024 Refill Fior cee RN INVASIVE Work Phone: [facility] Comment on above: 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, with long-term current use of insulin (HCC) (Primary Dx) Start: 01-04-2024 End: 01-08-2024 Refill Jing Leon RN INVASIVE Work Phone: [facility] Start: 12-25-2023 ambulatory PHYLLIS MAE [facility] Start: 12-20-2023 Refill Fior Gamino ee RN INVASIVE Work Phone: [facility] Start: 12-19-2023 End: 12-19-2023 Office outpatient new 30 minutes BHUMIKA Lin DPM Work Phone: [facility] Comment on above: Diabetic foot (HCC) (Primary Dx); PVD (peripheral vascular disease) (HCC); Type 2 diabetes mellitus with stage 3b chronic kidney disease, with long-term current use of insulin (HCC); Claudication of lower extremity (HCC); Tobacco use; Xerosis of skin; Onychodystrophy; Onychomycosis; Toe pain, bilateral Start: 12-19-2023 End: 12-23-2023 Refill Susan Baptiste MD Work Phone: [facility] Start: 12-19-2023 Refill Susan Burrell MD Work Phone: [facility] Start: 12-14-2023 End: 12-14-2023 Office outpatient visit 25 minutes Phyllis Mae MD Work Phone: [facility] Comment on above: Hypertension associa tray with type 2 diabetes mellitus (CMS/HCC) (Primary Dx); Type 2 diabetes mellitus with other circulatory complication, with long-term current use of insulin (CMS/HCC); Gait difficulty; Muscle weakness of lower extremity; Recurrent falls; Centrilobular emphysema (CMS/HCC); Screening for prostate cancer; Hypertriglyceridemia; Anemia, unspecified type; Non-pressure chronic ulcer of other part of right foot with fat layer exposed (CMS/HCC); Vascular myelopathies (CMS/HCC); Depression, major, in remission (CMS/HCC); Thoracic aortic aneurysm without rupture, unspecified part (CMS/HCC); Stage 3b chronic kidney disease (CMS/HCC); Stable angina pectoris; Calculus of gallbladder without cholecystitis without obstruction Start: 10-18-2023 End: 10-18-2023 Office outpatient visit 25 minutes Fior Forbes RN INVASIVE Work Phone: [facility] Comment on above: 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, with long-term current use of insulin (HCC) (Primary Dx); Dyslipidemia; Essential hypertension Start: 10-11-2023 End: 10-11-2023 Office outpatient visit 40 minutes Deshaun Rodrigues MD Work Phone: [facility] Comment on above: Atypical parkinsonis m (Primary Dx); Diabetic polyneuropathy associated with type 2 diabetes mellitus (HCC); Essential tremor; Mild cognitive impairment Start: 10-11-2023 End: 10-15-2023 [facility] Start: 08-22-2023 End: 08-22-2023 Office outpatient visit 25 minutes Phyllis Mae MD Work Phone: [facility] Comment on above: Type 2 diabetes silvino itus with hyperglycemic coma (CMS/HCC) (Primary Dx); Hyperlipidemia, unspecified hyperlipidemia type; Need for influenza vaccination; Chronic obstructive pulmonary disease, unspecified COPD type (CMS/HCC); H/O: CVA (cerebrovascular accident); Essential tremor; Encounter for vaccination; Hypertriglyceridemia Start: 07-12-2023 End: 07-12-2023 Office outpatient visit 15 minutes Arianna Rayne Lashawn Alfaro RN INVASIVE Work Phone: [facility] Comment on above: Essential hypertensi on (Primary Dx); Tobacco use; Dyslipidemia; History of cerebrovascular accident; Chronic obstructive pulmonary disease, unspecified COPD type (HCC); Musculoskeletal chest pain; Essential tremor Start: 05-15-2023 Refill David Waters RN INVASIVE Work Phone: [facility] Comment on above: 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, with long-term current use of insulin (HCC) (Primary Dx) Start: 04-05-2023 End: 04-05-2023 Office outpatient visit 40 minutes Deshaun Rodrigues MD Work Phone: [facility] Comment on above: Atypical parkinsonis m (HCC) (Primary Dx); Essential tremor; Cough syncope; Mild cognitive impairment Start: 03-26-2023 Tamy Pennington MD Work Phone: [facility] Start: 03-07-2023 End: 03-07-2023 Office outpatient visit 25 minutes Phyllis Mae MD Work Phone: [facility] Comment on above: Rib pain (Primary Dx ); Stenosis of left carotid artery; Hyperlipidemia, unspecified hyperlipidemia type; Gastro-esophageal reflux disease without esophagitis; Superficial gastritis without hemorrhage, unspecified chronicity; Pulmonary emphysema, unspecified emphysema type (CMS/HCC); CRF (chronic renal failure), stage 3 (moderate) ([facility]); Hypertension associated with type 2 diabetes mellitus ([facility]); Type 2 diabetes mellitus without complication, with long-term current use of insulin ([facility]); Other fatigue; Screening for prostate cancer; Vascular myelopathies ([facility]); Depression, major, in remission ([facility]); Chronic stable angina ([facility]); Chronic shortness of breath; Hepatic steatosis; H/O fall; Abdominal pain, LUQ; Abdominal pain, RUQ Start: 12-28-2022 ambulatory Phyllis Mae Facilit [id number] Start: 11-15-2022 Chart Update Phyllis Ho i Work Phone: [facility] Work Phone: Start: 11-10-2022 Transcribe Orders Donovan Chiang [facility] Comment on above: Non-pressure chronic ulcer of left lower leg, limited to breakdown of skin ([facility]) (Primary Dx) Start: 11-09-2022 End: 11-09-2022 Emergency department patient visit Christopher Galindo [facility] 02 Start: 11-07-2022 AUDIT Phyllis Ho i Work Phone: [facility] Work Phone: Start: 09-20-2022 Office outpatient vi sit 25 minutes Phyllis Mae Work Phone: [facility] Work Phone: Start: 09-20-2022 ambulatory Phyllis Mae Facilit [id number] Start: 09-13-2022 Refill David Waters CNP Work Phone: [facility] Start: 06-16-2022 End: 06-16-2022 Office outpatient new 60 minutes Deshaun Rodrigues MD Work Phone: [facility] Neurological Phys[facility] Comment on above: Essential tremor (Pr imary Dx); Cough syncope Start: 06-15-2022 AUDIT Phyllis Taverasab i Work Phone: [facility] Internal Medicine Work Phone: Start: 06-10-2022 End: 06-10-2022 Office outpatient visit 25 minutes Erica Gardner PA-C Work Phone: [facility] Comment on above: 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, with long-term current use of insulin (HCC) (Primary Dx); Essential hypertension Start: 06-02-2022 End: 06-02-2022 Office outpatient visit 25 minutes Aquiles Herrera MD Work Phone: [facility] Comment on above: GREEN (dyspnea on exer tion) (Primary Dx) Start: 05-18-2022 AUDIT Phyllis Taverasab i Work Phone: [facility] Work Phone: Start: 05-16-2022 AUDIT Phyllis Taverasab i Work Phone: [facility] Work Phone: Start: 05-11-2022 PTRECHECKA, Provider : Lorena Evangelista, Status: Pen, Time: 11:15 AM Phyllischer Mae Work Phone: [facility] [address] [place] Work Phone: Start: 05-10-2022 Patient encounter procedure Phyllis Mae Work Phone: [facility] Work Phone: Start: 05-09-2022 Patient encounter procedure Phyllis Yefritommy [facility] Phone: [facility] [address] [place] Work Phone: Start: 05-09-[address] Phyllis Mae Fac ility:[id number] Start: 05-06-2022 PTFUADULT4, Provider : Quin Li, Status: Pen, Time: 2:00 PM Phyllis Yefritommy Work Phone: [facility] [address] [place] Work Phone: Start: 05-06-2022 Patient encounter procedure Phyllischer Mae Work Phone: [facility] [address] [place] Work Phone: Start: 05-04-2022 Patient encounter procedure Phyllis Mae Work Phone: [facility] [address] [place] Work Phone: Start: 05-04-[address] Phyllis Mae Fac ility:[id number] Start: 04-29-2022 Patient encounter procedure Phyllis Yefritommy Work Phone: [facility] [address] [place] Work Phone: Start: 04-25-2022 Patient encounter procedure Phyllis Mae Work Phone: [facility] [address] [place] Work Phone: Start: 04-22-[address] Phyllis Mae Fac ility:[id number] Start: 04-22-2022 Patient encounter procedure Phyllis Mae Work [facility]: [facility] [address] [place] Work Phone: Start: 04-18-2022 Patient encounter procedure Phyllis Mae Work Phone: [facility] [address] [place] Work Phone: Start: 04-18-[address] Phyllis Byrnes ility:[id number] Start: 04-06-2022 Patient encounter procedure [facility]yllis Mae [facility] Work [facility]: Start: 04-06-[address] Phyllis Mae Fac ility:[id number] Start: 03-29-2022 Office outpatient vi sit 25 minutes Phyllis Mae Work Phone: [facility] Work Phone: Start: 03-29-2022 ambulatory Phyllis Taverasabi Facilit [id number] Start: 03-15-2022 Patient encounter procedure [facility] Start: 03-01-2022 Office outpatient vi sit 25 minutes Phyllis Mae Work Phone: [facility] Work Phone: Start: 03-01-2022 ambulatory Phyllis Mae Facilit [id number] Start: 02-16-2022 AUDIT Phyllis Taverasab i Work Phone: [facility] Work Phone: Start: 01-10-2022 End: 01-10-2022 Office outpatient visit 25 minutes Santana Orosco PA-C Work Phone: [facility] Comment on above: 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, with long-term current use of insulin (HCC) (Primary Dx) Start: 01-09-2022 Refill David Waters CNP Work Phone: [facility] Comment on above: Type 2 diabetes silvino itus without complications (HCC) Start: 01-04-2022 Office outpatient vi sit 15 minutes Phyllis Yefrirrabi Work Phone: [facility] Work Phone: Start: 01-04-2022 ambulatory Phyllis Mae Facilit [id number] Start: 12-30-2021 AUDIT Phyllis Taverasab i Work Phone: [facility] Work Phone: Start: 12-28-2021 AUDIT Phyllis Taverasab i Work Phone: [facility] Work Phone: Start: 12-01-2021 AUDIT Phyllis Taverasab i Work Phone: [facility] Work Phone: Start: 10-18-2021 Patient encounter procedure Phyllis Mae Work Phone: [facility] [address] [place] Work Phone: Start: 10-12-2021 AUDIT Phyllis Taverasab i Work Phone: [facility] Work Phone: Start: 10-04-2021 Office outpatient vi sit 25 minutes Phyllis Mae Work Phone: [facility] Work Phone: Start: 09-30-2021 Chart Update Phyllis Taverasab i Work Phone: [facility] Work Phone: Start: 09-29-2021 Patient encounter procedure [facility]yllis [facility]averasabi [facility] [address] [place] Work Phone: Start: 09-20-2021 Patient encounter procedure Phyllis Taverasabi [facility] Phone: [facility] [address] [place] Work Phone: Start: 09-17-2021 Patient encounter procedure Phyllis Asifrrabi Work Phone: [facility] [address] [place] Work Phone: Start: 09-17-2021 PTFUADULT4, Provider : Bib Payne, Status: Pen, Time: 12:30 PM Phyllis Zarrabi Work Phone: [facility] Work Phone: Start: 09-15-2021 AUDIT Phyllis Yefrirrab i Work Phone: [facility] Work Phone: Start: 09-15-2021 PTFUADULT4, Provider : Bib Payne, Status: Pen, Time: 1:15 PM Phyllis Zarrabi Work Phone: [facility] Work Phone: Start: 09-14-2021 Office outpatient vi sit 25 minutes Phyllis Zarrabi Work Phone: [facility] Work Phone: Start: 09-14-2021 Patient encounter procedure Phyllis Zarrabi Work Phone: [facility] Work Phone: Start: 09-10-2021 Patient encounter procedure Phyllis Zarrabi Work Phone: [facility] [address] [place] Work Phone: Start: 09-10-2021 PTFUADULT4, Provider : Bib Payne, Status: Pen, Time: 12:30 PM Phyllis Zarrabi Work Phone: [facility] Work Phone: Start: 09-09-2021 End: 09-09-2021 Office outpatient visit 10 minutes Dylon Galindo MD Work Phone: [facility] Sports Medicine Phys[facility] Comment on above: Closed displaced fra cture of greater trochanter of right femur with routine healing, subsequent encounter (Primary Dx) Start: 09-09-2021 Chart Update Phyllis Zarrab i Work Phone: [facility] Work Phone: Start: 09-08-2021 Patient encounter procedure Phyllis Taverasabi Work Phone: [facility] Work Phone: Start: 09-06-2021 Patient encounter procedure Phyllis Asifrrabi Work Phone: [facility] [address] [place] Work Phone: Start: 09-03-2021 Patient encounter procedure Phyllis Taverasabi Work Phone: [facility] [address] [place] Work Phone: Start: 08-27-2021 Patient encounter procedure Phyllis Asifrrabi Work Phone: [facility] [address] [place] Work Phone: Start: 08-25-2021 PTFUADULT4, Provider : Bib Payne, Status: Pen, Time: 12:30 PM Phyllis Taverasabi Work Phone: [facility] [address] [place] Work Phone: Start: 08-24-2021 EPV, Provider: Phyllis Mae, Status: Pen, Time: 11:15 AM Phyllis Taverasabi Work Phone: [facility] [address] [place] Work Phone: Start: 08-24-2021 Office outpatient vi sit 25 minutes Phyllis Taverasabi Work Phone: [facility] Work Phone: Start: 08-23-2021 Patient encounter procedure Phyllis Asifrrabi Work Phone: [facility] [address] [place] Work Phone: Start: 08-11-2021 Patient encounter procedure Phyllis Asifrrabi Work Phone: [facility] Work Phone: Start: 08-03-2021 End: 08-03-2021 Office outpatient visit 25 minutes David Waters CNP Work Phone: [facility] Comment on above: 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, with long-term current use of insulin (HCC) (Primary Dx); Essential hypertension Start: 07-19-2021 AUDIT Phyllis Darcyab i Work Phone: [facility] Work Phone: Start: 07-12-2021 Office outpatient vi sit 40 minutes Phyllis Zarrabi Work Phone: [facility] Work Phone: Start: 07-01-2021 Chart Update Phyllis Yefrirrab i Work Phone: [facility] Work Phone: Start: 06-17-2021 FUV, Provider: Jin Robbins II, Status: Pen, Time: 11:00 AM Phyllis Yefrirrabi Work Phone: [facility] Work Phone: Start: 06-16-2021 Chart Update Phyllis Asifrrab i Work Phone: [facility] Work Phone: Start: 06-01-2021 Office outpatient vi sit 40 minutes Phyllis Zarrabi Work Phone: [facility] Work Phone: Start: 05-21-2021 End: 05-21-2021 Postop follow up visit related to original px Dylon Galindo MD Work Phone: [facility] Phys[facility] Comment on above: Closed displaced fra cture of greater trochanter of right femur with routine healing, subsequent encounter (Primary Dx) Start: 04-27-2021 Critical care ill/in jured patient init 30-74 min Lev Desai MD Work Phone: [facility] Start: 04-27-2021 End: 05-11-2021 Evaluation and management of inpatient Lev Desai MD Work Phone: [facility] Start: 04-26-2021 End: 04-26-2021 Documentation procedure Kateryna Yeboah RN INVASIVE Work Phone: [facility] Physician [facility] Cardiology [facility] Primary [facility] Start: 04-22-2021 End: 04-22-2021 Orders Only Kateryna Yeboah RN INVASIVE Work Phone: [facility] Cardiology and Primary Care Comment on above: Urinary retention (P rimary Dx) Start: 04-19-2021 End: 04-19-2021 Documentation procedure Kateryna Yeboah RN INVASIVE Work Phone: [facility] Physician [facility] Start: 04-05-2021 End: 04-05-2021 Documentation procedure Kateryna Yeboah RN INVASIVE Work Phone: [facility] Cardiology [facility] Primary [facility] Start: 04-01-2021 AUDIT Phyllis Yefrikita i Work Phone: [facility] Work Phone: Start: 03-24-2021 End: 03-24-2021 Office outpatient visit 10 minutes Dylon Galindo MD Work Phone: [facility] Comment on above: Closed displaced fra cture of greater trochanter of right femur with routine healing, subsequent encounter (Primary Dx) Start: 03-22-2021 End: 03-22-2021 Documentation procedure Kateryna Yebaoh RN INVASIVE Work Phone: [facility] Physician [facility] Start: 03-16-2021 End: 03-16-2021 Orders Only Kateryna Yeboah RN INVASIVE Work Phone: [facility] Start: 03-15-2021 End: 03-15-2021 Documentation procedure Kateryna Yeboah RN INVASIVE Work Phone: [facility] Start: 2021 End: 2021 Orders Only Kateryna Gregorygeorge Yeboah CNP Work Phone: [facility] Cardiology [facility] Primary Care Comment on above: Claudication of lowe r extremity (HCC) (Primary Dx) Start: 01-13-2021 End: 01-13-2021 Refill David Waters Work Phone: [facility]in[facility] Phys[facility] Comment on above: Type 2 diabetes silvino itus without complications (HCC) Start: 01-11-2021 End: 01-11-2021 Subsequent hospital visit by physician Lance Palacios Work Phone: [facility] Comment on above: Arrived Start: 01-01-2021 End: 01-01-2021 Patient encounter procedure Tosha Barreraashish Mosher Work Phone: [facility] Start: 12-05-2020 End: 12-05-2020 Orders Only Tosha Crossmarlin Work Phone: [facility] Start: 11-23-2020 End: 11-23-2020 Phys/qhp telephone evaluation 21-30 min Aquiles Herrera Work Phone: [facility] Comment on above: Abnormal stress test (Primary Dx); PAD (peripheral artery disease) (HCC); PVD (peripheral vascular disease) (HCC) Start: 09-16-2020 Patient encounter procedure Phyllis [facility] Work Phone: Start: 09-09-2020 Patient encounter procedure Phyllis Taverasabi [facility] Work Phone: Start: 09-08-2020 Patient encounter procedure Phyllis Mae [facility] Work Phone: Start: 08-31-2020 End: 08-31-2020 Subsequent hospital visit by physician Phyllis Mae Work Phone: [facility] Comment on above: Nipple pain Start: 08-17-2020 Patient encounter procedure Phyllis Mae [facility] Work Phone: Start: 08-03-2020 End: 08-03-2020 Office outpatient visit 25 minutes Erica Gardner Work Phone: [facility] Comment on above: Inadequately control led diabetes mellitus (HCC) (Primary Dx); Dyslipidemia Start: 07-20-2020 Patient encounter procedure Phyllis Mae [facility] Work Phone: Start: 06-10-2020 End: 06-10-2020 Emergency department patient visit Ray Scherer Work Phone: [facility] Comment on above: Closed fracture of m ultiple ribs of right side, initial encounter (Primary Dx); Closed fracture of multiple ribs of left side, initial encounter; Closed extensive facial fractures, initial encounter (HCC); Closed fracture of multiple ribs of both sides, initial encounter; Closed fracture of left orbital floor, initial encounter (HCC) Start: 06-10-2020 Patient encounter procedure Phyllis Mae MD [facility] Work Phone: Start: 06-08-2020 Patient encounter procedure Phyllis Mae MD [facility] Work Phone: Start: 05-25-2020 End: 05-25-2020 Subsequent hospital visit by physician Lola Cruz Work Phone: [facility] Comment on above: Screening for malign ant neoplasm of respiratory organ; Cigarette Smoker Start: 05-19-2020 Patient encounter procedure Phyllis Mae [facility] Work Phone: Start: 05-18-2020 Patient encounter procedure Phyllis Mae [facility] Work Phone: Start: 05-07-2020 Patient encounter procedure Phyllis Mae [facility] Work Phone: Start: 04-28-2020 End: 04-28-2020 Subsequent hospital visit by physician Aquiles Herrera Work Phone: [facility] Comment on above: Chest pain, unspecif ied type; PVD (peripheral vascular disease) (HCC) Arrived Start: 04-25-2020 End: 04-25-2020 [facility] Start: 04-16-2020 Patient encounter procedure Phyllis Mae [facility] Work Phone: Start: 04-14-2020 End: 04-14-2020 Emergency department patient visit RAY SCHERER [facility] Start: 04-14-2020 End: 04-14-2020 Emergency department patient visit [facility] Work Phone: [facility] Comment on above: Fall, initial encoun ter (Primary Dx); Alcoholic intoxication with complication (HCC) Start: 04-02-2020 Patient encounter procedure Phyllis Mae [facility] Work Phone: Start: 02-17-2020 End: 02-17-2020 Patient encounter procedure Jasmyn Kat [facility] Comment on above: proactive outreach Start: 02-11-2020 Tamy Cruz MD Work Phone: [facility] Phys[facility] Start: 12-27-2019 End: 12-27-2019 Office outpatient new 30 minutes David Waters Work Phone: [facility]in[facility] Comment on above: IDDM (insulin depend ent diabetes mellitus) (HCC) (Primary Dx); Inadequately controlled diabetes mellitus (HCC); Dyslipidemia Start: 12-18-2019 Patient encounter procedure Phyllis Asiftommy [facility] Work Phone: Start: 12-04-2019 End: 12-04-2019 Office outpatient visit 25 minutes Cameron Munguia Work Phone: [facility] Comment on above: Left carotid artery stenosis (Primary Dx); Stenosis of left iliac artery (HCC); History of carotid endarterectomy; Neurogenic claudication Start: 12-04-2019 End: 12-04-2019 Subsequent hospital visit by physician Cameron Munguia Work Phone: [facility] Comment on above: Stenosis of left car otid artery; History of right-sided carotid endarterectomy Stenosis of left lorenzo ac artery (HCC) Start: 10-24-2019 End: 10-24-2019 Office outpatient visit 25 minutes Aquiles Herrera Work Phone: [facility] Comment on above: Abnormal stress test Start: 06-05-2019 End: 06-05-2019 [facility] Start: 06-05-2019 End: 06-05-2019 Emergency department patient visit Bret Feuntes Work Phone: [facility] Emergency Department Comment on above: COPD exacerbation (H CC) (Primary Dx) Start: 05-27-2019 End: 05-27-2019 Emergency department patient visit Cornelia Martin Work Phone: [facility] Emergency Department Comment on above: Pneumonia of left lo wer lobe due to infectious organism (HCC) (Primary Dx) Start: 05-27-2019 End: 05-27-2019 Office outpatient visit 25 minutes Guillermo Dewitt Work Phone: [facility] Physicians Comment on above: Anemia, unspecified type (Primary Dx); Monoclonal gammopathy; Fatigue, unspecified type; SOB (shortness of breath) Start: 05-07-2019 Refill Tristen bray MD Work Phone: [facility] Comment on above: Medication Refill (L ovastatin ) Start: 04-01-2019 End: 04-01-2019 Office outpatient visit 25 minutes Aquiles Herrera Work Phone: [facility] Comment on above: Facial numbness (Linda juanis Dx); Statin intolerance; Abnormal stress test Start: 01-25-2019 End: 01-25-2019 Office outpatient visit 25 minutes CrowdSlingwanathan Work Phone: [facility] Comment on above: Anemia, unspecified type (Primary Dx); Monoclonal gammopathy Start: 01-22-2019 End: 01-22-2019 Office outpatient visit 15 minutes Lola Cruz Work Phone: [facility] Phys[facility] Comment on above: Chronic obstructive pulmonary disease, unspecified COPD type (HCC) (Primary Dx); Cigarette Smoker; Screening for malignant neoplasm of respiratory organ Start: 01-21-2019 End: 01-21-2019 Patient encounter procedure Lola Cruz Facility:[facility] Comment on above: Screening for malign ant neoplasm of respiratory organ; Cigarette Smoker Start: 11-28-2018 End: 11-28-2018 Office outpatient visit 25 minutes Aquiles Herrera Work Phone: [facility] Comment on above: Stenosis of left car otid artery (Primary Dx); History of right-sided carotid endarterectomy; Stenosis of left iliac artery (HCC); Neurogenic claudication Start: 11-26-2018 Patient encounter procedure Aquiles Herrera Facility:[facility] Start: 11-26-2018 End: 11-26-2018 Patient encounter procedure Aquiles Herrera Work Phone: [facility] Comment on above: Bilateral carotid ar francisco stenosis Start: 11-26-2018 End: 11-26-2018 Subsequent hospital visit by physician Aquiles Herrera Work Phone: [facility] Comment on above: Prominent abdominal aortic pulse Start: 11-25-2018 Refill Lola Cruz MD Work Phone: [facility] Start: 11-15-2018 Patient encounter procedure Phyllis Mae Facility:[facility] Start: 11-15-2018 End: 11-16-2018 Patient encounter procedure Phyllis Mae Facility:[facility] Start: 11-13-2018 Patient encounter procedure Aquiles Herrera Facility:[facility] Start: 11-13-2018 End: 11-13-2018 Patient encounter procedure Aquiles Herrera Work Phone: [facility] Comment on above: Chest pain, unspecif ied type Start: 11-12-2018 End: 11-12-2018 Patient encounter procedure PHYLLIS MAE [facility] Start: 10-16-2018 End: 10-17-2018 Patient encounter procedure Phyllis Mae Facility:[facility] Start: 09-28-2018 End: 09-28-2018 Office outpatient visit 25 minutes Guillermo Dewitt Work Phone: [facility] Comment on above: Anemia, unspecified type (Primary Dx); Monoclonal gammopathy; Fatigue, unspecified type Start: 09-19-2018 Patient encounter procedure Josh Moura Facility:[facility] Start: 09-19-2018 End: 09-19-2018 Patient encounter procedure Josh Moura Work Phone: [facility] Start: 07-17-2018 End: 07-18-2018 Patient encounter procedure Latashasham Ashlie Facility:[facility] Start: 07-02-2018 Patient encounter procedure Rochelle Kamadana Facility:[facility] Start: 07-02-2018 End: 07-02-2018 Patient encounter Rochelle Jonatan Work Phone: [facility] Start: 05-10-2018 Patient encounter procedure Guillermo Dewitt Facility:[facility] Start: 05-10-2018 End: 05-10-2018 Patient encounter Guillermo Dewitt Work Phone: [facility] Start: 05-07-2018 Patient encounter procedure Tristenrachid Menjivar Facility:[facility] Start: 05-07-2018 End: 05-07-2018 Ambulatory Tristen Morganhta Work Phone: [facility] Start: 04-25-2018 End: 04-26-2018 Patient encounter procedure Latashashaleks Dailey Facility:[facility] Start: 04-17-2018 End: 04-18-2018 Patient encounter procedure Jose Dailey Facility:[facility] Start: 04-08-2018 End: 04-08-2018 Emergency department patient visit Jose Dailey Facility:[facility] Start: 01-17-2018 Patient encounter procedure Lola Cruz Facility:[facility] Start: 01-17-2018 End: 01-17-2018 Ambulatory Lola Cruz Work Phone: [facility] Start: 01-11-2018 End: 01-12-2018 Patient encounter procedure Lola Cruz Facility:[facility] Start: 01-10-2018 End: 01-11-2018 Patient encounter procedure Davi Nelson Facility:Davi Nelson DO Start: 01-04-2018 Office/outpatient vi sit, est, level 4 Guillermo Esdras Work Phone: [facility] Start: 12-21-2017 End: 12-22-2017 Patient encounter procedure Fletcheraleks Dailey Facility:[facility] Start: 12-20-2017 Patient encounter procedure Guillermo Dewitt Facility:[facility] Start: 12-20-2017 End: 12-20-2017 Ambulatory Rochellenishi Cheung Work Phone: [facility] Start: 12-18-2017 End: 12-18-2017 Patient encounter procedure Davi Nelson Facility:[facility] Start: 11-22-2017 Office/outpatient vi sit, est, level 4 Tristen Menjivar Work Phone: [facility] Start: 10-16-2017 Office/outpatient vi sit, est, level 3 Aquiles Herrera Work Phone: [facility] Start: 09-07-2017 Office outpatient vi sit 25 minutes Guillermo Esdras Work Phone: [facility] Start: 09-06-2017 End: 09-06-2017 Ambulatory Lola Cruz Work Phone: [facility] Start: 08-30-2017 End: 08-30-2017 Ambulatory Guillermo Esdras Work Phone: [facility] Start: 08-17-2017 End: 08-17-2017 Patient encounter procedure Guillermo Esdras Work Phone: [facility] Start: 08-17-2017 Office outpatient ne w 30 minutes Guillermo Esdras Work Phone: [facility] Start: 07-07-2017 Ophthalmic examinati on and evaluation Phyllis Mae Work Phone: [facility] Work Phone: Ophthalmic examinati on and evaluation Phyllis Mae MD [facility] Work Phone: Patient encounter procedure Phyllis Mae Work Phone: [facility] Work Phone: Procedures Date Procedure Procedure Detail Performing Clinician Start: 04-10-2025 XR knee, [address] Phyllis Mae MD Work Phone: Start: 04-10-2025 X-ray of ankle, three or more views Dr. Phyllis Mae MD Work Phone: Start: 02-23-2025 Urnls dip stick/tablet reagent auto microscopy Dr. Phyllis Mae MD Work Phone: Start: 02-19-2025 Serum inorganic phosphate measurement Dr. Phyllis Mae MD Work Phone: Start: 01-27-2025 Vitamin D, 25-hydroxy measurement Dr. Phyllis Mae MD Work Phone: Comment on above: Vitamin D StatusDeficiency: <20 ng/mL (5 0nmol/L)Insufficiency: 20-30 ng/mL (50-75 nmol/L)Sufficiency: 30-100 ng/mL (75-250 nmol/L)Toxicity: >100 ng/mL (>250 nmol/L) Start: 12-24-2024 Serum inorganic phosphate measurement Dr. Phyllis Mae MD Work Phone: Start: 09-09-2024 Ecg routine ecg w/least 12 lds w/i&r Aquiles Herrera MD Work Phone: Start: 06-27-2024 Microalbumin [Mass/volume] in Urine by Test strip BHUMIKA Lin DPM Work Phone: Start: 04-25-2024 Lipid 1996 panel - Serum or Plasma Phyllis Mae MD Work Phone: Start: 03-08-2024 Microalbumin [Mass/volume] in Urine by Test strip BHUMIKA Lin DPM Work Phone: Start: 12-19-2023 Microalbumin [Mass/volume] in Urine by Test strip BHUMIKA Lin DPM Work Phone: Start: 07-11-2023 Microalbumin [Mass/volume] in Urine by Test strip Arianna Askewaleks [facility] Work Phone: Start: 01-31-2023 Ophthalmic examination and evaluation Don Pennington MD Work Phone: Start: 12-01-2022 3 comp foot exam completed Don patterson MD Work Phone: Start: 12-01-2022 Microalbumin [Mass/volume] in Urine by Test strip Don Pennington MD Work Phone: Start: 06-10-2022 3 comp foot exam completed Erica Gardner PA-C Work Phone: Start: 01-10-2022 3 comp foot exam completed Santana goldsmith PA-C Work Phone: Start: 12-14-2021 Microalbumin [Mass/volume] in Urine by Test strip David Waters [facility] Work Phone: Start: 09-29-2021 Lipid 1996 panel - Serum or Plasma Phyllis Mae MD Work Phone: Start: 08-03-2021 Hemoglobin glycosylated a1c David Waters [facility] Work Phone: Start: 08-03-2021 3 comp foot exam completed David vazquez RN INVASIVE Work Phone: Start: 05-11-2021 End: 05-11-2021 Glucose measurement Bryce Alvarez MD Work Phone: Start: 05-11-2021 Glucose measurement Bryce Alvarez MD Work Phone: Start: 05-10-2021 Glucose measurement Bryce Alvarez MD Work Phone: Start: 05-10-2021 Glucose measurement Bryce Alvarez MD Work Phone: Start: 05-10-2021 Glucose measurement Bryce Alvarez MD Work Phone: Start: 05-10-2021 Glucose measurement Bryce Alvarez MD Work Phone: Start: 05-10-2021 Glucose measurement Bryce Alvarez MD Work Phone: Start: 05-09-2021 Glucose measurement Bryce Alvarez MD Work Phone: Start: 05-09-2021 Glucose measurement Bryce Alvarez MD Work Phone: Start: 05-09-2021 Glucose measurement Bryce Alvarez MD Work Phone: Start: 05-09-2021 Glucose measurement Bryce Alvarez MD Work Phone: Start: 05-09-2021 Comprehensive metabolic panel Bryce Alvarez MD Work Phone: Start: 05-09-2021 Hepatic function panel Bryce Alvarez MD Work Phone: Start: 05-08-2021 Glucose measurement Bryce Alvarez MD Work Phone: Start: 05-08-2021 Glucose measurement Bryce Alvarez MD Work Phone: Start: 05-08-2021 Glucose measurement Bryce Alvarez MD Work Phone: Start: 05-08-2021 Glucose measurement Bryce Alvarez MD Work Phone: Start: 05-08-2021 Basic metabolic panel calcium total Bryce Alvarez MD Work Phone: Start: 05-07-2021 Glucose measurement Bryce Alvarez MD Work Phone: Start: 05-07-2021 Glucose measurement Bryce Alvarez MD Work Phone: Start: 05-07-2021 RADIOLOGY SCANS Provider Not In System Start: 05-07-2021 Glucose measurement Bryce Alvarez MD Work Phone: Start: 05-07-2021 Glucose measurement Bryce Alvarez MD Work Phone: Start: 05-07-2021 Glucose measurement Bryce Alvarez MD Work Phone: Start: 05-07-2021 End: 05-07-2021 Basic metabolic panel calcium total Bryce Alvarez MD Work Phone: Start: 05-06-2021 Glucose measurement Bryce Alvarez MD Work Phone: Start: 05-06-2021 Glucose measurement Bryce Alvarez MD Work Phone: Start: 05-06-2021 Glucose measurement Bryce Alvarez MD Work Phone: Start: 05-06-2021 Glucose measurement Bryce Alvarez MD Work Phone: Start: 05-05-2021 Glucose measurement Bryce Alvarez MD Work Phone: Start: 05-05-2021 Glucose measurement Bryce Alvarez MD Work Phone: Start: 05-05-2021 Glucose measurement Bryce Alvarez MD Work Phone: Start: 05-05-2021 Us retroperitoneal real time w/image complete Bryce Alvarez MD Work Phone: Start: 05-05-2021 Glucose measurement Bryce Alvarez MD Work Phone: Start: 05-05-2021 Basic metabolic panel calcium total Bryce Alvarez MD Work Phone: Start: 05-04-2021 Glucose measurement Bryce Alvarez MD Work Phone: Start: 05-04-2021 Glucose measurement Bryce Alvarez MD Work Phone: Start: 05-04-2021 Glucose measurement Bryce Alvarez MD Work Phone: Start: 05-04-2021 Basic metabolic panel calcium total Bryce Alvarez MD Work Phone: Start: 05-03-2021 Glucose measurement Bryce Alvarez MD Work Phone: Start: 05-03-2021 Glucose measurement Bryce Alvarez MD Work Phone: Start: 05-03-2021 Glucose measurement Bryce Alvarez MD Work Phone: Start: 05-03-2021 RADIOLOGY SCANS Provider Not In System Start: 05-03-2021 Glucose measurement Bryce Alvarez MD Work Phone: Start: 05-03-2021 Basic metabolic panel calcium total Bryce Alvarez MD Work Phone: Start: 05-02-2021 Drug screen quantitative vancomycin Manuelito Durand [facility],PharmD Start: 05-02-2021 Glucose measurement Bryce Alvarez MD Work Phone: Start: 07-04-2021 RADIOLOGY SCANS Provider Not In System Start: 05-02-2021 Glucose measurement Bryce Alvarez MD Work Phone: Start: 05-02-2021 Glucose measurement Bryce Alvarez MD Work Phone: Start: 05-02-2021 Glucose measurement Bryce Alvarez MD Work Phone: Start: 05-02-2021 End: 05-02-2021 Radiologic examination femur 1 view Don Pennington MD Work Phone: Start: 05-02-2021 Creatinine blood Kenna uQintero [facility],PharmD Start: 05-01-2021 Glucose measurement Bryce Alvarez MD Work Phone: Start: 05-01-2021 Glucose measurement Bryce Alvarez MD Work Phone: Start: 05-01-2021 Glucose measurement Bryce Alvarez MD Work Phone: Start: 05-01-2021 Glucose measurement Bryce Alvarez MD Work Phone: Start: 05-01-2021 Basic metabolic panel calcium total Bryce Alvarez MD Work Phone: Start: 04-30-2021 End: 04-30-2021 Glucose measurement Bryce Alvarez MD Work Phone: Start: 04-30-2021 Culture bacterial quanttative colony count urine Bryce Alvarez MD Work Phone: Start: 04-30-2021 Glucose measurement Bryce Alvarez MD Work Phone: Start: 04-30-2021 Glucose measurement Bryce Alvarez MD Work Phone: Start: 04-30-2021 Comprehensive metabolic panel Bryce Alvarez MD Work Phone: Start: 04-30-2021 Hepatic function panel Bryce Alvarez MD Work Phone: Start: 04-29-2021 Glucose measurement Bryce Alvarez MD Work Phone: Start: 04-29-2021 Glucose measurement Bryce Alvarez MD Work Phone: Start: 04-29-2021 Glucose measurement Bryce Alvarez MD Work Phone: Start: 04-29-2021 Creatinine blood Melissa Collins MD Work Phone: Start: 04-29-2021 Glucose measurement Geraldine Reilly MD Work Phone: Start: 04-28-2021 End: 04-28-2021 Glucose measurement Geraldine Reilly MD Work Phone: Start: 04-28-2021 Glucose measurement Geraldine Reilly MD Work Phone: Start: 04-28-2021 Glucose measurement Geraldine Reilly MD Work Phone: Start: 04-28-2021 Urnls dip stick/tablet reagent auto microscopy Geraldine Reilly MD Work Phone: Start: 04-28-2021 Glucose measurement Geraldine Reilly MD Work Phone: Start: 04-28-2021 Culture bacterial quanttative colony count urine Geraldine Reilly MD Work Phone: Start: 04-28-2021 Renal function panel Geraldine Reilly MD Work Phone: Start: 04-27-2021 Glucose measurement Geraldine Reilly MD Work Phone: Start: 04-27-2021 Glucose measurement Lev Desai MD Work Phone: Start: 04-27-2021 Basic metabolic panel calcium total Geraldine Reilly MD Work Phone: Start: 04-27-2021 Electrocardiogram Provider Not In System Start: 04-27-2021 End: 04-27-2021 Culture bacterial quanttative colony count urine Lev Desai MD Work Phone: Start: 04-27-2021 SARS-CoV-2 (COVID-19) RdRp gene [Presence] in Respiratory specimen by BANDAR with probe detection Lev Desai MD Work Phone: Start: 04-27-2021 Gases blood ph direct quynh xcpt pulse oximitry Lev Desai MD Work Phone: Start: 04-27-2021 OBTAIN VENOUS BLOOD GASES AND PERFORM Lev Desai MD Work Phone: Start: 04-27-2021 End: 04-27-2021 Ecg routine ecg w/least 12 lds w/i&r Lev Desai MD Work Phone: Start: 04-27-2021 End: 04-27-2021 Assay of magnesium Geraldine Reilly MD Work Phone: Start: 04-27-2021 LAVENDER TOP Lev Desai MD Work Phone: Start: 04-27-2021 MINT GREEN TOP Lev Desai MD Work Phone: Start: 04-27-2021 RAINBOW DRAW Lev Desai MD Work Phone: Start: 04-27-2021 Adult depression screening assessment Dylon Galindo MD Work Phone: Start: 04-06-2021 Microalbumin [Mass/volume] in Urine by Test strip Kateryna Yeboah CNP Work Phone: Start: 03-16-2021 Microalbumin [Mass/volume] in Urine by Test strip Kateryna Yeboah CNP Work Phone: Start: 01-11-2021 Standard chest X-ray External Transcribed Start: 08-31-2020 MG Breast - bilateral diagnostic Externa l Transcribed Start: 08-03-2020 3 comp foot exam completed [facility] Nathen Start: 07-28-2020 Microalbumin [Mass/volume] in Urine by Test strip Eriac Gardner Start: 06-10-2020 Incentive spirometry Amanda Gorman Work Phone: Start: 06-10-2020 Radiographic imaging procedure Ray Scherer Work Phone: Start: 06-10-2020 End: 06-10-2020 Computerized tomography, limited studies Ray Scherer Work Phone: Start: 06-10-2020 End: 06-10-2020 Glucose [Mass/volume] in Blood Amanda Gorman Work Phone: Start: 05-25-2020 Low dose computed tomography of thorax Lola Cruz Work Phone: Start: 05-19-2020 Xray Chest 2 View PA + Lateral Phyllis page Start: 05-07-2020 Ct thorax w/o contrast material Phyllis Mae Start: 05-07-2020 VASC LAB PVR (Arterial Physiologic) w/ Exercise Phyllis Mae Start: 04-28-2020 Radionuclide myocardial perfusion study Aquiles Herrera Work Phone: Start: 04-14-2020 End: 04-14-2020 Ct thoracic spine w/o contrast material Rachel Horowitz Work Phone: Start: 04-14-2020 CT of chest, abdomen and pelvis without contrast Rachel Horowitz Work Phone: Start: 04-14-2020 CT cervical spine without contrast Rachel Horowitz Work Phone: Start: 04-14-2020 CT of head without contrast Rachel Horowitz Work Phone: Start: 04-14-2020 Radiologic exam chest single view Ray Scherer Work Phone: Start: 04-14-2020 Gases blood ph direct quynh xcpt pulse oximitry Ray Scherer Work Phone: Start: 04-14-2020 Prothrombin time [facility] Start: 04-14-2020 COVID-19, MOLECULAR Ray Scherer Work Phone: Start: 04-14-2020 Ethanol [Mass/volume] in Serum or Plasma Ray Scherer Work Phone: Start: 04-14-2020 Activated partial thromboplastin time ratio Ray Scherer Work Phone: Start: 04-14-2020 aPTT in Blood by Coagulation assay Ray Scherer Work Phone: Start: 04-14-2020 Blood type and Indirect antibody screen panel - Blood Ray Scherer Work Phone: Start: 04-14-2020 Complete blood count (hemogram) panel - Blood by Automated count Ray Scherer Work Phone: Start: 04-14-2020 Comprehensive metabolic 2000 panel - Serum or Plasma Ray Scherer Work Phone: Start: 04-14-2020 INR in Platelet poor plasma by Coagulation assay Ray Scherer Work Phone: Start: 04-14-2020 LIGHT GREEN TOP Ray Scherer Work Phone: Start: 04-14-2020 Magnesium [Mass/volume] in Serum or Plasma Ray Scherer Work Phone: Start: 04-14-2020 Phosphate [Mass/volume] in Serum or Plasma Ray Scherer Work Phone: Start: 04-14-2020 RAINBOW DRAW Ray Scherer Work Phone: Start: 12-27-2019 3 comp foot exam completed Jasmyn Kat Start: 12-11-2019 Microalbumin [Mass/volume] in Urine by Test strip David Waters Start: 12-04-2019 Measurement of segmental blood pressure of artery of lower limb using doppler ultrasonography Cameron Munguia Work Phone: Start: 12-04-2019 Carotid artery doppler assessment Cameron Munguia Work Phone: Start: 06-05-2019 Natriuretic peptide [facility] Start: 06-05-2019 Assay of troponin quantitative [facility] Start: 06-05-2019 12 lead ECG Bret Fuentes Work Phone: Start: 06-05-2019 Basic metabolic panel calcium total [facility] Start: 06-05-2019 POC CBC AND DIFFERENTIAL Bret Fuentes Work Phone: Start: 06-05-2019 Standard chest X-ray Bret Fuentes Work Phone: Start: 05-27-2019 Standard chest X-ray Wendy Ernst Work Phone: Start: 05-27-2019 Complete blood count with white cell differential, automated Wendy Ernst Work Phone: Start: 05-27-2019 Complete blood count with white cell differential, manual Wendy Ernst Work Phone: Start: 05-27-2019 Comprehensive metabolic 2000 panel - Serum or Plasma Wendy Ernst Work Phone: Start: 05-27-2019 LIGHT BLUE TOP Cornelia Martin Work Phone: Start: 05-27-2019 RAINBOW DRAW Cornelia Martin Work Phone: Start: 04-01-2019 12 lead ECG Aquiles Arriaga Shanique Work Phone: Start: 01-21-2019 Low dose computed tomography of thorax Lola Cruz Work Phone: Start: 11-26-2018 Carotid artery doppler assessment Aquiles Arriaga Shanique Work Phone: Start: 11-26-2018 Dup-scan aorta ivc iliac vascl/bpgs uni/lmtd Aquiles Arriaga Shanique Work Phone: Start: 11-13-2018 Cv strs tst xers&/or rx cont ecg w/o i&r Aquilse Herrera Work Phone: Start: 11-12-2018 Lipid 1996 panel - Serum or Plasma Historical Provider Start: 11-12-2018 End: 11-12-2018 ORDERS (OUTSIDE) Historical Provider Start: 09-19-2018 End: 09-19-2018 Complete blood count with white cell differential, manual Guillermo Dewitt Work Phone: Start: 09-19-2018 End: 09-19-2018 Comprehensive metabolic 2000 panel - Serum or Plasma Guillermo Dewitt Work Phone: Start: 09-19-2018 End: 09-19-2018 Ferritin [Mass/volume] in Serum or Plasma Guillermo Dewitt Work Phone: Start: 09-19-2018 End: 09-19-2018 Reticulocytes panel - Blood Guillermo Dewitt Work Phone: Start: 07-02-2018 End: 07-02-2018 Albumin serum plasma/whole blood Rochelle Cheung Work Phone: Start: 07-02-2018 End: 07-02-2018 Assay of magnesium Rochelle Jonatan Work Phone: Start: 07-02-2018 End: 07-02-2018 Assay of phosphorus inorganic Rochelle espinosa Work Phone: Start: 07-02-2018 End: 07-02-2018 Calcium total Rochelle Odettena Work Phone: Start: 07-02-2018 End: 07-02-2018 Electrolyte panel Rochelle Odettena Work Phone: Start: 07-02-2018 End: 07-02-2018 Hemoglobin and Hematocrit panel - Blood Rochelle Mattadana Work Phone: Start: 07-02-2018 End: 07-02-2018 [facility] - PARATHYROID HORMONE Rochelle blackburn Work Phone: Start: 07-02-2018 End: 07-02-2018 [facility] - PROTEIN PANEL, URINE Rochelle chavez Work Phone: Start: 07-02-2018 Microalbumin [Mass/volume] in Urine by Test strip Bret Fuentes Start: 04-25-2018 Microalbumin [Mass/volume] in Urine by Test strip Aquiles Herrera Start: 12-18-2017 Colonoscopy Phyllis Mae MD Work Phone: Start: 06-30-2016 Esophagogastroduodenoscopy Phyllis Taverasa bi Work Phone: Start: 03-30-2016 History of carotid endarterectomy History of carotid endarterectomy Kateryna Yeboah CNP Work Phone: Start: 07-10-2015 Repair of musculotendinous cuff of shoulder Phyllis Mae Work Phone: Comment on above: LT; Start: 10-30-2013 Colonoscopy Dylon Galindo MD Work Phone: Start: 10-30-2013 Colonoscopy Phyllis Mae Work Phone: Comment on above: POLYPS; Start: 08-30-2010 Procedure on neck Phyllis Yefrirrabi Work Phone: Start: 10-30-2006 Operative procedure on hand Phyllis Asifrr clemencia Work Phone: Colonoscopy Phyllis Asifrrabi Comment on above: Completed: 2013 End: 06-30-2016 Esophagogastroduodenoscopy Phyllis Sena bi History of carotid endarterectomy History of carotid endarterectomy Cameron Munguia DO Work Phone: Operative procedure on hand Phyllis Zarrabi Comment on above: Completed: 2006 Operative procedure on hip F marinaallie Taverasabi Work Phone: End: 08-30-2010 Procedure on neck Phyllis Zarrabi End: 07-10-2015 Repair of musculotendinous cuff of shoulder Phyllis Zarrabi Plan of Treatment Date Care Activity Detail Author Start: 06-10-2030 DTaP/Tdap/Td Vaccines (2 - Td or Tdap) DTaP/Tdap/Td Vaccines (2 - Td or Tdap) [facility] Start: 06-10-2030 Tetanus vaccination Tetanus: Every 10yrs [facility] Start: 12-18-2027 Screening for malignant neoplasm of colon [facility] Start: 03-08-2026 Glaucoma screening Diabetes: Retinopathy Screening [facility] Start: 11-06-2025 Medicare Annual Wellness Visit Medicare Annual Wellness Visit (AWV) [facility] Start: 11-05-2025 Medicare Wellness Visit Medicare Wellness Visit [facility] Start: 11-05-2025 End: 11-05-2025 Patient encounter procedure 11/05/2025 12:45 PM EST Office Visit [facility] [address] [place] [phone] Phyllis Mae MD [address] [place] [id number] [facility] Start: 09-09-2025 Diabetic foot examination Diabetic Foot Exam [facility] Start: 05-07-2025 Diabetic foot examination Diabetic Foot Exam [facility] Start: 04-25-2025 Lipid panel Lipid Panel [facility] Start: 04-10-2025 [facility] Start: 04-08-2025 End: 04-08-2025 Patient encounter procedure 04/08/2025 1:15 PM EDT Office Visit [facility] [address] [phone] BHUMIKA Lin, DPM [address] [place] [address] [facility] Start: 04-05-2025 Prostate specific antigen measurement PSA Level [facility] Start: 03-08-2025 Glaucoma screening [facility] Start: 03-08-2025 Urine screening for protein [facility] Start: 03-04-2025 Urine screening for protein eGFR Diabetes [facility] Start: 03-04-2025 End: 03-04-2025 Patient encounter procedure 03/04/2025 12:45 PM EDT Office Visit [facility] [address] [place] [phone] Phyllis Mae MD [address] [place] [address] [facility] Start: 02-27-2025 Medicare Annual Wellness Visit Medicare Annual Wellness Visit (AWV) [facility] Start: 02-26-2025 History and physical examination, annual for health maintenance Wellness Visit [facility] Start: 02-26-2025 Medicare Wellness Visit Medicare Wellness Visit [facility] Start: 01-02-2025 End: 01-02-2025 Patient encounter procedure 01/02/2025 1:15 PM EST Office Visit [facility] [address] [place] [phone] BHUMIKA Lin, DPM [address] [place] [address] [facility] Start: 12-27-2024 Urine screening for protein Urine (micro)albumin/creatinine ratio - Diabetes [facility] Start: 12-19-2024 Diabetic foot examination Diabetic Foot Exam [facility] Start: 12-19-2024 Urine screening for protein Urine Microalbumin [facility] Start: 12-11-2024 End: 12-11-2024 Patient encounter procedure 12/11/2024 2:15 PM EST Office Visit [facility] [address] [place] [address] [place] [phone] Fior Forbes, RN INVASIVE [address] [place] [address] [facility] Start: 12-10-2024 End: 09-09-2025 Comprehensive metabolic 2000 panel - Serum or Plasma Comprehensive Metabolic Panel Lab Routine Type 2 diabetes mellitus with stage 3b chronic kidney disease, with long-term current use of insulin (HCC) Expected: 12/10/2024, Expires: 09/09/2025 [facility] Work Phone: Comment on above: Expected: 12/10/2024, Expires: Start: 12-10-2024 End: 09-09-2025 Hemoglobin A1c/Hemoglobin.total in Blood Hemoglobin A1c Lab Routine Type 2 diabetes mellitus with stage 3b chronic kidney disease, with long-term current use of insulin (HCC) Expected: 12/10/2024, Expires: 09/09/2025 [facility] Comment on above: Expected: 12/10/2024, Expires: Start: 12-10-2024 End: 09-09-2025 Lipid 1996 panel - Serum or Plasma Lipid Panel Lab Routine Dyslipidemia Expected: 12/10/2024, Expires: 09/09/2025 [facility] Comment on above: Expected: 12/10/2024, Expires: Start: 12-10-2024 End: 09-09-2025 Microalbumin measurement, urine, quantitative Microalbumin/Creatinine Ratio, UR Random Lab Routine Type 2 diabetes mellitus with stage 3b chronic kidney disease, with long-term current use of insulin (HCC) Expected: 12/10/2024, Expires: 09/09/2025 [facility] Comment on above: Expected: 12/10/2024, Expires: Start: 12-10-2024 End: 09-09-2025 Thyrotropin [Units/volume] in Serum or Plasma TSH Lab Routine Type 2 diabetes mellitus with stage 3b chronic kidney disease, with long-term current use of insulin (HCC) Expected: 12/10/2024, Expires: 09/09/2025 [facility] Comment on above: Expected: 12/10/2024, Expires: Start: 12-10-2024 End: 09-09-2025 Thyroxine (T4) free [Mass/volume] in Serum or Plasma T4, Free Lab Routine Type 2 diabetes mellitus with stage 3b chronic kidney disease, with long-term current use of insulin (HCC) Expected: 12/10/2024, Expires: 09/09/2025 [facility] Comment on above: Expected: 12/10/2024, Expires: Start: 12-05-2024 End: 12-05-2025 Comprehensive metabolic 2000 panel - Serum or Plasma Comprehensive Metabolic Panel Lab Routine Type 2 diabetes mellitus with hyperglycemia, with long-term current use of insulin CRF (chronic renal failure), stage 3 (moderate) (Multi) Expected: 12/05/2024 (Approximate), Expires: 12/05/2025 [facility] Service Area Work Phone: Comment on above: Expected: 12/05/2024 (Approximate), Expi res: 12/05/2025 Start: 12-05-2024 End: 12-05-2025 Folate [Mass/volume] in Serum or Plasma Folate Lab Routine High serum folic acid level Expected: 12/05/2024 (Approximate), Expires: 12/05/2025 [facility] Work Phone: Comment on above: Expected: 12/05/2024 (Approximate), Expi res: 12/05/2025 Start: 12-05-2024 Hemoglobin A1c measurement A1C [facility] Start: 12-05-2024 End: 12-05-2025 Hemoglobin A1c/Hemoglobin.total in Blood Hemoglobin A1C Lab Routine Type 2 diabetes mellitus with hyperglycemia, with long-term current use of insulin Expected: 12/05/2024 (Approximate), Expires: 12/05/2025 [facility] Work Phone: Comment on above: Expected: 12/05/2024 (Approximate), Expi res: 12/05/2025 Start: 12-05-2024 End: 12-05-2025 Lipid 1996 panel - Serum or Plasma Lipid Panel Lab Routine Mixed hyperlipidemia Expected: 12/05/2024 (Approximate), Expires: 12/05/2025 [facility] Work Phone: Comment on above: Expected: 12/05/2024 (Approximate), Expi res: 12/05/2025 Start: 12-05-2024 End: 12-05-2025 Magnesium [Mass/volume] in Serum or Plasma Magnesium Lab Routine Anemia, unspecified type Expected: 12/05/2024 (Approximate), Expires: 12/05/2025 [facility] Work Phone: Comment on above: Expected: 12/05/2024 (Approximate), Expi res: 12/05/2025 Start: 12-05-2024 End: 12-05-2025 Prostate specific Ag [Mass/volume] in Serum or Plasma Prostate Specific Antigen, Screen Lab Routine Prostate cancer screening Expected: 12/05/2024 (Approximate), Expires: 12/05/2025 [facility] Work Phone: Comment on above: Expected: 12/05/2024 (Approximate), Expi res: 12/05/2025 Start: 12-05-2024 End: 12-05-2025 Zinc [Mass/volume] in Serum or Plasma Zinc Lab Routine Anemia, unspecified type Expected: 12/05/2024 (Approximate), Expires: 12/05/2025 [facility] Work Phone: Comment on above: Expected: 12/05/2024 (Approximate), Expi res: 12/05/2025 Start: 12-05-2024 End: 12-05-2024 Patient encounter procedure 12/05/2024 12:45 PM EST Office Visit [facility] [address] [place] [address] Phyllis Mae MD [address] [place] [address] [facility] Start: 11-26-2024 End: 11-26-2024 Patient encounter procedure 11/26/2024 1:15 PM EST Office Visit [facility] [address] [place] [address] [facility] Start: 11-19-2024 End: 11-19-2024 Patient encounter procedure 11/19/2024 10:15 AM EST Office Visit [facility] [address] [place] [address] [facility] Start: 11-05-2024 End: 11-05-2025 CBC W Auto Differential panel - Blood CBC and Auto Differential Lab Routine Anemia, unspecified type Expected: 11/05/2024 (Approximate), Expires: 11/05/2025 [facility] Work Phone: Comment on above: Expected: 11/05/2024 (Approximate), Expi res: 11/05/2025 Start: 11-05-2024 End: 11-05-2025 Cobalamin (Vitamin B12) [Mass/volume] in Serum or Plasma Vitamin B12 Lab Routine Anemia, unspecified type Expected: 11/05/2024 (Approximate), Expires: 11/05/2025 [facility] Work Phone: Comment on above: Expected: 11/05/2024 (Approximate), Expi res: 11/05/2025 Start: 11-05-2024 End: 11-05-2025 Comprehensive metabolic 2000 panel - Serum or Plasma Comprehensive Metabolic Panel Lab Routine Type 2 diabetes mellitus with hyperglycemia, with long-term current use of insulin Hypertension associated with type 2 diabetes mellitus (Multi) Chronic fatigue Expected: 11/05/2024 (Approximate), Expires: 11/05/2025 [facility] Service Area Work Phone: Comment on above: Expected: 11/05/2024 (Approximate), Expi res: 11/05/2025 Start: 11-05-2024 End: 11-05-2025 Ferritin [Mass/volume] in Serum or Plasma Ferritin Lab Routine Anemia, unspecified type Expected: 11/05/2024 (Approximate), Expires: 11/05/2025 [facility] Work Phone: Comment on above: Expected: 11/05/2024 (Approximate), Expi res: 11/05/2025 Start: 11-05-2024 End: 11-05-2025 Folate [Mass/volume] in Serum or Plasma Folate Lab Routine Anemia, unspecified type Expected: 11/05/2024 (Approximate), Expires: 11/05/2025 [facility] Work Phone: Comment on above: Expected: 11/05/2024 (Approximate), Expi res: 11/05/2025 Start: 11-05-2024 Hemoglobin A1c measurement Diabetes: Hemoglobin A1C [facility] Start: 11-05-2024 End: 11-05-2025 Hemoglobin A1c/Hemoglobin.total in Blood Hemoglobin A1C Lab Routine Type 2 diabetes mellitus with hyperglycemia, with long-term current use of insulin Expected: 11/05/2024 (Approximate), Expires: 11/05/2025 [facility] Work Phone: Comment on above: Expected: 11/05/2024 (Approximate), Expi res: 11/05/2025 Start: 11-05-2024 End: 11-05-2025 Iron and Iron binding capacity panel - Serum or Plasma Iron and TIBC Lab Routine Anemia, unspecified type Expected: 11/05/2024 (Approximate), Expires: 11/05/2025 [facility] Work Phone: Comment on above: Expected: 11/05/2024 (Approximate), Expi res: 11/05/2025 Start: 11-05-2024 End: 11-05-2025 Magnesium [Mass/volume] in Serum or Plasma Magnesium Lab Routine Chronic fatigue Expected: 11/05/2024 (Approximate), Expires: 11/05/2025 [facility] Work Phone: Comment on above: Expected: 11/05/2024 (Approximate), Expi res: 11/05/2025 Start: 11-05-2024 End: 11-05-2025 Methylmalonate [Moles/volume] in Serum or Plasma Methylmalonic Acid Lab Routine Anemia, unspecified type Expected: 11/05/2024 (Approximate), Expires: 11/05/2025 [facility] Work Phone: Comment on above: Expected: 11/05/2024 (Approximate), Expi res: 11/05/2025 Start: 11-05-2024 End: 11-05-2025 Microalbumin/Creatini ne [Mass Ratio] in Urine Albumin-Creatinine Ratio, Urine Random Lab Routine Type 2 diabetes mellitus with hyperglycemia, with long-term current use of insulin Expected: 11/05/2024 (Approximate), Expires: 11/05/2025 [facility] Work Phone: Comment on above: Expected: 11/05/2024 (Approximate), Expi res: 11/05/2025 Start: 11-05-2024 End: 11-05-2025 TSH with reflex to Free T4 if abnormal TSH with reflex to Free T4 if abnormal Lab Routine Chronic fatigue Expected: 11/05/2024 (Approximate), Expires: 11/05/2025 [facility] Work Phone: Comment on above: Expected: 11/05/2024 (Approximate), Expi res: 11/05/2025 Start: 11-05-2024 End: 11-05-2025 Zinc [Mass/volume] in Serum or Plasma Zinc Lab Routine Chronic fatigue Expected: 11/05/2024 (Approximate), Expires: 11/05/2025 [facility] Work Phone: Comment on above: Expected: 11/05/2024 (Approximate), Expi res: 11/05/2025 Start: 10-18-2024 Diabetic foot examination Diabetic Foot Exam [facility] Start: 10-03-2024 End: 10-03-2024 Patient encounter procedure 10/03/2024 3:40 PM EST Office Visit [facility] [address] [place] [address], 3rd floor [place] [phone] Cameron Munguia III, DO [address] [place] [address] [facility] Start: 10-03-2024 End: 10-03-2024 Patient encounter procedure [facility] Start: 09-23-2024 End: 09-23-2024 Patient encounter procedure [facility] Start: 09-16-2024 End: 09-16-2024 Patient encounter procedure [facility] Start: 09-09-2024 End: 09-09-2024 Patient encounter procedure 09/09/2024 2:30 PM EST Office Visit [facility] [address] [place] [address] [place] [phone] Fior Forbes, RAQUEL [address] [place] [address] [facility] Start: 09-08-2024 Urine screening for protein Urine (micro)albumin/creatinine ratio - Diabetes [facility] Start: 07-26-2024 Hemoglobin A1c measurement [facility] Start: 07-25-2024 End: 07-25-2025 CBC W Auto Differential panel - Blood CBC and Auto Differential Lab Routine Thrombocytopenia (CMS-HCC) Fatigue, unspecified type Expected: 07/25/2024 (Approximate), Expires: 07/25/2025 [facility] Work Phone: Comment on above: Expected: 07/25/2024 (Approximate), Expi res: 07/25/2025 Start: 07-25-2024 End: 07-25-2025 Comprehensive metabolic 2000 panel - Serum or Plasma Comprehensive Metabolic Panel Lab Routine Fatigue, unspecified type CRF (chronic renal failure), stage 3 (moderate) (Multi) Type 2 diabetes mellitus with hyperglycemia, with long-term current use of insulin (Multi) Expected: 07/25/2024 (Approximate), Expires: 07/25/2025 [facility] Work Phone: Comment on above: Expected: 07/25/2024 (Approximate), Expi res: 07/25/2025 Start: 07-25-2024 End: 07-25-2025 Hemoglobin A1c/Hemoglobin.total in Blood Hemoglobin A1C Lab Routine Type 2 diabetes mellitus with hyperglycemia, with long-term current use of insulin (Multi) Expected: 07/25/2024 (Approximate), Expires: 07/25/2025 [facility] Work Phone: Comment on above: Expected: 07/25/2024 (Approximate), Expi res: 07/25/2025 Start: 07-25-2024 End: 07-25-2025 Magnesium [Mass/volume] in Serum or Plasma Magnesium Lab Routine Fatigue, unspecified type Expected: 07/25/2024 (Approximate), Expires: 07/25/2025 [facility] Work Phone: Comment on above: Expected: 07/25/2024 (Approximate), Expi res: 07/25/2025 Start: 07-25-2024 End: 07-25-2025 TSH with reflex to Free T4 if abnormal TSH with reflex to Free T4 if abnormal Lab Routine Fatigue, unspecified type Expected: 07/25/2024 (Approximate), Expires: 07/25/2025 [facility] Work Phone: Comment on above: Expected: 07/25/2024 (Approximate), Expi res: 07/25/2025 Start: 07-25-2024 End: 07-25-2025 US Liver limited US abdomen limited liver Imaging Routine Thrombocytopenia (CMS-HCC) Expected: 07/25/2024, Expires: 07/25/2025 [facility] Service Area Work Phone: Comment on above: Expected: 07/25/2024, Expires: Start: 07-25-2024 End: 07-25-2025 Zinc [Mass/volume] in Serum or Plasma Zinc Lab Routine Fatigue, unspecified type Expected: 07/25/2024 (Approximate), Expires: 07/25/2025 [facility] Work Phone: Comment on above: Expected: 07/25/2024 (Approximate), Expi res: 07/25/2025 Start: 07-11-2024 Urine screening for protein Urine Microalbumin [facility] Start: 07-09-2024 End: 07-09-2024 Patient encounter procedure 07/09/2024 2:15 PM EDT Office Visit [facility] [address] [place] [address] [facility] Start: 06-30-2024 COVID-19 Vaccine ( season) COVID-19 Vaccine ( season) [facility] Start: 06-30-2024 COVID-19 Vaccine ( season) COVID-19 Vaccine ( season) [facility] Start: 06-30-2024 Influenza vaccination Influenza Vaccine (#1) [facility] Start: 06-27-2024 End: 06-27-2024 Patient encounter procedure 06/27/2024 2:00 PM EDT Office Visit [facility] [address] [place] [address] BHUMIKA Lin, DPM [address] [place] [address] [facility] Start: 06-08-2024 Hemoglobin A1c measurement A1C [facility] Start: 05-21-2024 End: 05-21-2024 Patient encounter procedure 05/21/2024 8:15 AM EDT Office Visit [facility] [address] [place], [place] [address] [phone] BHUMIKA Lin, DPM [address] [place] [address] [facility] Start: 05-14-2024 End: 05-14-2025 Wound Anaerobic Culture Wound Anaerobic Culture Microbiology Routine Ingrown toenail Paronychia of great toe PVD (peripheral vascular disease) ([facility]) Tobacco use Xerosis of skin Diabetic foot ([facility]) Expected: 05/14/2024, Expires: 05/14/2025 [facility] Comment on above: Expected: 05/14/2024, Expires: Start: 03-26-2024 End: 03-26-2024 Patient encounter procedure 03/26/2024 1:30 PM EDT Office Visit [facility] [address] [place] [phone] BHUMIKA Lin, DPM [facility] [place] [address] [facility] Start: 03-19-2024 End: 03-19-2024 Patient encounter procedure 03/19/2024 1:45 PM EDT Office Visit [facility] [address] [place] [address] [place] [address] David Waters, RN INVASIVE [address] [place] [address] [facility] Start: 2024 Respiratory Syncytial Virus Immunization: Risk, 60-74 Risk, or 75+ (1 - 1-dose 75+ series) Respiratory Syncytial Virus Immunization: Risk, 60-74 Risk, or 75+ (1 - 1-dose 75+ series) [facility] Start: 2024 RSV High Risk: (Elderly (60+) or Population) (1 - 1-dose 75+ series) RSV High Risk: (Elderly (60+) or Population) (1 - 1-dose 75+ series) [facility] Start: 02-28-2024 Screening for malignant neoplasm of lung Low-dose CT Lung Cancer Screen [facility] Start: 02-27-2024 End: 02-27-2024 Patient encounter procedure 02/27/2024 1:30 PM EDT Office Visit [facility] [address] [place] [phone] Phyllis Mae MD [address] [place] [address] [facility] Start: 02-21-2024 End: 02-21-2024 Patient encounter procedure 02/21/2024 3:00 PM EDT Appointment [facility] [address] [place] [address] [place] [phone] BHUMIKA Lin, DPM [address] [place] [phone] [facility] Start: 02-17-2024 End: 10-18-2024 Comprehensive metabolic 2000 panel - Serum or Plasma Comprehensive Metabolic Panel Lab Routine Type 2 diabetes mellitus with stage 3b chronic kidney disease, with long-term current use of insulin (HCC) Expected: 02/17/2024, Expires: 10/18/2024 [facility] Work Phone: Comment on above: Expected: 02/17/2024, Expires: Start: 02-17-2024 End: 10-18-2024 Hemoglobin A1c/Hemoglobin.total in Blood Hemoglobin A1c Lab Routine Type 2 diabetes mellitus with stage 3b chronic kidney disease, with long-term current use of insulin (HCC) Expected: 02/17/2024, Expires: 10/18/2024 [facility] Comment on above: Expected: 02/17/2024, Expires: 4 Start: 02-17-2024 End: 10-18-2024 Lipid 1996 panel - Serum or Plasma Lipid Panel Lab Routine Dyslipidemia Expected: 02/17/2024, Expires: 10/18/2024 [facility] Comment on above: Expected: 02/17/2024, Expires: Start: 02-17-2024 End: 10-18-2024 Microalbumin measurement, urine, quantitative Microalbumin/Creatinine Ratio, UR Random Lab Routine Type 2 diabetes mellitus with stage 3b chronic kidney disease, with long-term current use of insulin (HCC) Expected: 02/17/2024, Expires: 10/18/2024 [facility] Comment on above: Expected: 02/17/2024, Expires: Start: 02-17-2024 End: 10-18-2024 Thyrotropin [Units/volume] in Serum or Plasma TSH Lab Routine Type 2 diabetes mellitus with stage 3b chronic kidney disease, with long-term current use of insulin (HCC) Expected: 02/17/2024, Expires: 10/18/2024 [facility] Comment on above: Expected: 02/17/2024, Expires: Start: 02-17-2024 End: 10-18-2024 Thyroxine (T4) free [Mass/volume] in Serum or Plasma T4, Free Lab Routine Type 2 diabetes mellitus with stage 3b chronic kidney disease, with long-term current use of insulin (HCC) Expected: 02/17/2024, Expires: 10/18/2024 [facility] Comment on above: Expected: 02/17/2024, Expires: Start: 02-01-2024 Glaucoma screening [facility] Start: 01-29-2024 End: 01-29-2024 Patient encounter procedure 01/29/2024 3:00 PM EDT Appointment [facility] [address] [place] [address] [place] [address] BHUMIKA Lin, DPM [address] [place] [address] [facility] Start: 01-10-2024 Hemoglobin A1c measurement [facility] Start: 12-30-2023 Medicare Annual Wellness Visit Medicare Annual Wellness Visit (AWV) [facility] Start: 12-14-2023 End: 12-14-2024 CBC W Auto Differential panel - Blood CBC and Auto Differential Lab Routine Anemia, unspecified type Expected: 12/14/2023 (Approximate), Expires: 12/14/2024 [facility] Work Phone: Comment on above: Expected: 12/14/2023 (Approximate), Expi res: 12/14/2024 Start: 12-14-2023 End: 12-14-2024 Comprehensive metabolic 2000 panel - Serum or Plasma Comprehensive Metabolic Panel Lab Routine Type 2 diabetes mellitus with other circulatory complication, with long-term current use of insulin (CMS/HCC) Expected: 12/14/2023 (Approximate), Expires: 12/14/2024 [facility] Service Area Work Phone: Comment on above: Expected: 12/14/2023 (Approximate), Expi res: 12/14/2024 Start: 12-14-2023 End: 12-14-2024 Hemoglobin A1c/Hemoglobin.total in Blood Hemoglobin A1C Lab Routine Type 2 diabetes mellitus with other circulatory complication, with long-term current use of insulin (CMS/HCC) Expected: 12/14/2023 (Approximate), Expires: 12/14/2024 [facility] Work Phone: Comment on above: Expected: 12/14/2023 (Approximate), Expi res: 12/14/2024 Start: 12-14-2023 End: 12-14-2024 Lipid 1996 panel - Serum or Plasma Lipid Panel Lab Routine Hypertriglyceridemia Expected: 12/14/2023 (Approximate), Expires: 12/14/2024 [facility] Work Phone: Comment on above: Expected: 12/14/2023 (Approximate), Expi res: 12/14/2024 Start: 12-14-2023 End: 12-14-2024 Prostate specific Ag [Mass/volume] in Serum or Plasma Prostate Specific Antigen, Screen Lab Routine Screening for prostate cancer Expected: 12/14/2023 (Approximate), Expires: 12/14/2024 [facility] Work Phone: Comment on above: Expected: 12/14/2023 (Approximate), Expi res: 12/14/2024 Start: 12-01-2023 Diabetic foot examination [facility] Start: 12-01-2023 Urine screening for protein Urine Microalbumin [facility] Start: 11-12-2023 Fasting lipid profile LIPID SCREENING [facility] Work Phone: Start: 10-30-2023 Screening for malignant neoplasm of colon [facility] Start: 10-18-2023 End: 10-18-2023 Patient encounter procedure 10/18/2023 1:00 PM EST Office Visit [facility] [address] [facility] [place] [phone] Fior Forbes CNP [address] [place] [address] [facility] Start: 10-11-2023 End: 10-11-2023 Patient encounter procedure 10/11/2023 1:00 PM EST Office Visit [facility] [address] [facility] Office [facility], 2nd [place] [phone] Deshaun Rodrigues MD [address] [address] [facility] Start: 10-09-2023 Hemoglobin A1c measurement [facility] Start: 07-19-2023 End: 07-19-2023 Patient encounter procedure 07/19/2023 3:20 PM EDT Office Visit [facility] [address] [facility] [place] [place] [address] Aquiles Herrera MD [address] [place] [address] [facility] Start: 06-30-2023 COVID-19 Vaccine () COVID-19 Vaccine () [facility] Start: 06-30-2023 Influenza vaccination Sequential Influenza Vaccine (#1) [facility] Start: 06-16-2023 End: 06-16-2023 Patient encounter procedure 06/16/2023 2:15 PM EDT Office Visit [facility] [address] [facility] [place] [place] [phone] Fior Forbes CNP [address] [place], [place] [phone] [facility] Start: 06-10-2023 Diabetic foot examination Foot Exam [facility] Start: 04-21-2023 End: 04-21-2023 Patient encounter procedure 04/21/2023 11:30 AM EDT Office Visit [facility] [address] [place] [address] [place] [phone] Santana Orosco PA-C [address] [place] [address] [facility] Start: 04-05-2023 End: 04-05-2023 Patient encounter procedure 04/05/2023 2:30 PM EDT Office Visit [facility] [address] [place] [address] Office [facility], 2nd [place] [address] Deshaun Rodrigues MD [address] [place] [address] [address] [place] [address] [facility] Start: 03-07-2023 End: 03-07-2024 CBC W Auto Differential panel - Blood CBC and Auto Differential Lab Routine Other fatigue Expected: 03/07/2023 (Approximate), Expires: 03/07/2024 [facility] Work Phone: Comment on above: Expected: 03/07/2023 (Approximate), Expi res: 03/07/2024 Start: 03-07-2023 End: 03-07-2024 Cobalamin (Vitamin B12) [Mass/volume] in Serum or Plasma Vitamin B12 Lab Routine Other fatigue Expected: 03/07/2023 (Approximate), Expires: 03/07/2024 [facility] Work Phone: Comment on above: Expected: 03/07/2023 (Approximate), Expi res: 03/07/2024 Start: 03-07-2023 End: 03-07-2024 Comprehensive metabolic 2000 panel - Serum or Plasma Comprehensive Metabolic Panel Lab Routine Hypertension associated with type 2 diabetes mellitus (CMS/HCC) Type 2 diabetes mellitus without complication, with long-term current use of insulin (CMS/[facility]) Expected: 03/07/2023 (Approximate), Expires: 03/07/2024 [facility] Service Area Work Phone: Comment on above: Expected: 03/07/2023 (Approximate), Expi res: 03/07/2024 Start: 03-07-2023 End: 03-07-2024 Folate [Mass/volume] in Serum or Plasma Folate Lab Routine Other fatigue Expected: 03/07/2023 (Approximate), Expires: 03/07/2024 [facility] Work Phone: Comment on above: Expected: 03/07/2023 (Approximate), Expi res: 03/07/2024 Start: 03-07-2023 End: 03-07-2024 Hemoglobin A1c/Hemoglobin.total in Blood Hemoglobin A1C Lab Routine Type 2 diabetes mellitus without complication, with long-term current use of insulin ([facility]) Expected: 03/07/2023 (Approximate), Expires: 03/07/2024 [facility] Work Phone: Comment on above: Expected: 03/07/2023 (Approximate), Expi res: 03/07/2024 Start: 03-07-2023 End: 03-07-2024 Magnesium [Mass/volume] in Serum or Plasma Magnesium Lab Routine Other fatigue Expected: 03/07/2023 (Approximate), Expires: 03/07/2024 [facility] Work Phone: Comment on above: Expected: 03/07/2023 (Approximate), Expi res: 03/07/2024 Start: 03-07-2023 End: 03-07-2024 Methylmalonate [Moles/volume] in Serum or Plasma Methylmalonic Acid Lab Routine Other fatigue Expected: 03/07/2023 (Approximate), Expires: 03/07/2024 [facility] Work Phone: Comment on above: Expected: 03/07/2023 (Approximate), Expi res: 03/07/2024 Start: 03-07-2023 End: 03-07-2024 Prostate specific Ag [Mass/volume] in Serum or Plasma Prostate Specific Antigen, Screen Lab Routine Screening for prostate cancer Expected: 03/07/2023 (Approximate), Expires: 03/07/2024 [facility] Work Phone: Comment on above: Expected: 03/07/2023 (Approximate), Expi res: 03/07/2024 Start: 01-11-2023 Prostate specific antigen measurement PSA Level [facility] Start: 01-10-2023 Diabetic foot examination Foot Exam [facility] Start: 01-02-2023 Hemoglobin A1c measurement A1C [facility] Start: 12-22-2022 Hemoglobin A1c measurement A1C [facility] Start: 12-20-2022 FUV, Provider: Phyllis Mae, Status: Pen, Time: 1:00 PM FUV, Provider: Phyllis Mae, Status: Pen, Time: 1:00 PM [facility] Internal Medicine Work Phone: Start: 12-20-2022 Patient encounter procedure [facility] Start: 12-14-2022 Microalbumin measurement, urine, quantitative Urine Microalbumin [facility] Start: 12-14-2022 Urine screening for protein Urine Microalbumin [facility] Start: 12-07-2022 End: 12-07-2022 Patient encounter procedure 12/07/2022 Office Visit Neurology Deshaun Rodrigues MD [address] [place] [id number] [facility] Start: 12-05-2022 End: 12-05-2022 Patient encounter procedure 12/05/2022 Office Visit Cardiology Aquiles Herrera MD [address] [place] [id number] [facility] Start: 12-01-2022 End: 12-01-2022 Patient encounter procedure 12/01/2022 Office Visit Endocrinology David Waters, RAQUEL [address] [place] [address] [facility] Start: 11-23-2022 End: 11-23-2022 Patient encounter procedure 11/23/2022 Office Visit Wound Care Maureen Brown MD [address] [facility] [address] [place] [address] [facility] Start: 11-12-2022 Hemoglobin A1c measurement A1C [facility] Start: 11-01-2022 FUV, Provider: Phyllis Mae, Status: Pen, Time: 12:45 PM FUV, Provider: Phyllis Mae, Status: Pen, Time: 12:45 PM [facility] Internal Medicine Work Phone: Start: 10-11-2022 End: 10-11-2022 Patient encounter procedure 10/11/2022 Office Visit Endocrinology David Waters CNP [address] [place] [address] [facility] Start: 10-10-2022 End: 06-10-2023 Complete blood count with white cell differential, manual CBC and Differential Lab Routine Type 2 diabetes mellitus with stage 3b chronic kidney disease, with long-term current use of insulin (HCC) Expected: 10/10/2022 (Approximate), Expires: 06/10/2023 [facility] Comment on above: Expected: 10/10/2022 (Approximate), Expi res: 06/10/2023 Start: 10-10-2022 End: 06-10-2023 Comprehensive metabolic 2000 panel - Serum or Plasma Comprehensive Metabolic Panel Lab Routine Type 2 diabetes mellitus with stage 3b chronic kidney disease, with long-term current use of insulin (HCC) Expected: 10/10/2022 (Approximate), Expires: 06/10/2023 [facility] Comment on above: Expected: 10/10/2022 (Approximate), Expi res: 06/10/2023 Start: 10-10-2022 End: 06-10-2023 Hemoglobin A1c/Hemoglobin.total in Blood Hemoglobin A1c Lab Routine Type 2 diabetes mellitus with stage 3b chronic kidney disease, with long-term current use of insulin (HCC) Expected: 10/10/2022 (Approximate), Expires: 06/10/2023 [facility] Work Phone: Comment on above: Expected: 10/10/2022 (Approximate), Expi res: 06/10/2023 Start: 10-10-2022 End: 06-10-2023 Lipid 1996 panel - Serum or Plasma Lipid Panel Lab Routine Type 2 diabetes mellitus with stage 3b chronic kidney disease, with long-term current use of insulin (HCC) Expected: 10/10/2022 (Approximate), Expires: 06/10/2023 [facility] Comment on above: Expected: 10/10/2022 (Approximate), Expi res: 06/10/2023 Start: 10-10-2022 End: 06-10-2023 Thyrotropin [Units/volume] in Serum or Plasma TSH Lab Routine Type 2 diabetes mellitus with stage 3b chronic kidney disease, with long-term current use of insulin (HCC) Expected: 10/10/2022 (Approximate), Expires: 06/10/2023 [facility] Comment on above: Expected: 10/10/2022 (Approximate), Expi res: 06/10/2023 Start: 10-10-2022 End: 06-10-2023 Thyroxine (T4) free [Mass/volume] in Serum or Plasma T4, Free Lab Routine Type 2 diabetes mellitus with stage 3b chronic kidney disease, with long-term current use of insulin (HCC) Expected: 10/10/2022 (Approximate), Expires: 06/10/2023 [facility] Comment on above: Expected: 10/10/2022 (Approximate), Expi res: 06/10/2023 Start: 10-04-2022 End: 10-04-2022 Patient encounter procedure 10/04/2022 Appointment Cardiology Aquiles Herrera MD [address] [place] [id number] [facility] Start: 09-29-2022 Lipid panel Lipid Panel [facility] Start: 08-15-2022 End: 08-15-2022 Patient encounter procedure 08/15/2022 Appointment Cardiology Aquiles Herrera MD [address] [address] [facility] Start: 08-03-2022 Diabetic foot examination Foot Exam [facility] Start: 07-29-2022 End: 07-29-2022 Patient encounter procedure 07/29/2022 Appointment Cardiology Aquiles Herrera MD [address] [address] [facility] Start: 07-28-2022 Prostate specific antigen measurement PSA Level [facility] Start: 07-05-2022 FUV, Provider: Phyllis Mae, Status: Pen, Time: 1:45 PM FUV, Provider: Phyllis Mae, Status: Pen, Time: 1:45 PM [facility] Work [facility]: Start: 06-30-2022 Influenza vaccination Sequential Influenza Vaccine (#1) [facility] Start: 06-28-2022 FUV, Provider: Phyllis Mae, Status: Pen, Time: 11:30 AM FUV, Provider: Phyllis Mae, Status: Pen, Time: 11:30 AM [facility] Internal Medicine Work Phone: Start: 06-16-2022 End: 06-16-2022 Patient encounter procedure 06/16/2022 Office Visit Neurology Deshaun Rodrigues MD [facility] [address] [address] [facility] Start: 06-13-2022 Hemoglobin A1c measurement A1C [facility] Start: 06-10-2022 End: 06-10-2022 Patient encounter procedure 06/10/2022 Office Visit Endocrinology Erica Gardner PA-C [address] [place] [address] [facility] Start: 05-17-2022 End: 05-17-2022 Patient encounter procedure 05/17/2022 Office Visit Endocrinology David Waters, RAQUEL [address] [place] [address] [facility] Start: 05-13-2022 PTFUADULT4, Provider: Quin Li, Status: Pen, Time: 11:45 AM PTFUADULT4, Provider: Quin Li, Status: Pen, Time: 11:45 AM [facility] [place] [address] [place] Work Phone: Start: 05-11-2022 PTRECHECKA, Provider: Lorena Evangelista, Status: Pen, Time: 11:15 AM PTRECHECKA, Provider: Lorena Evangelista, Status: Pen, Time: 11:15 AM [facility] [place] [address] [place] Work Phone: Start: 05-09-2022 PTFUADULT4, Provider: Quin Li, Status: Pen, Time: 12:15 PM PTFUADULT4, Provider: Quin Li, Status: Pen, Time: 12:15 PM [facility] [place] [address] [place] Work Phone: Start: 05-06-2022 PTFUADULT4, Provider: Quin Li, Status: Pen, Time: 2:00 PM PTFUADULT4, Provider: Quin Li, Status: Pen, Time: 2:00 PM [facility] [place] [address] [place] Work Phone: Start: 05-04-2022 PTFUADULT4, Provider: Quin iL, Status: Pen, Time: 2:00 PM PTFUADULT4, Provider: Quin Li, Status: Pen, Time: 2:00 PM Rehab [address] Work Phone: Start: 04-29-2022 PTFUADULT4, Provider: Quin Li, Status: Pen, Time: 2:00 PM PTFUADULT4, Provider: Quin Li, Status: Pen, Time: 2:00 PM [facility] [address] Work Phone: Start: 04-27-2022 Depression screening using PHQ-9 (Patient Health Questionnaire 9) score [facility] Start: 04-25-2022 End: 04-25-2022 Patient encounter procedure 04/25/2022 Office Visit Cardiology Aquiles Herrera MD [address] [place] [id number] [facility] Start: 04-25-2022 PTFUADULT4, Provider: Quin Li, Status: Pen, Time: 11:30 AM PTFUADULT4, Provider: Quin Li, Status: Pen, Time: 11:30 AM [facility] [address] Work Phone: Start: 04-22-2022 PTFUADULT4, Provider: Quin Li, Status: Pen, Time: 1:15 PM PTFUADULT4, Provider: Quin Li, Status: Pen, Time: 1:15 PM [facility] [address] Work Phone: Start: 04-06-2022 Microalbumin measurement, urine, quantitative Urine Microalbumin [facility] Start: 04-06-2022 PTEVALADUL, Provider: Lorena Evangelista, Status: Pen, Time: 9:30 AM PTEVALADUL, Provider: Lorena Evangelista, Status: Pen, Time: 9:30 AM [facility] Work Phone: Start: 03-16-2022 Microalbumin measurement, urine, quantitative Urine Microalbumin [facility] Start: 03-15-2022 PTEVALADUL, Provider: Rayo Herrera, Status: Pen, Time: 11:30 AM PTEVARIELLE, Provider: Rayo Herrera, Status: Giacomo, Time: 11:30 AM [facility] Internal [facility] Work Phone: Start: 03-12-2022 Pneumococcal vaccination [facility] Start: 03-12-2022 Pneumococcal Vaccine: 65+ Years (2 - PCV) Pneumococcal Vaccine: 65+ Years (2 - PCV) [facility] Start: 03-12-2022 Pneumococcal Vaccine: 65+ Years (2 of 2 - PCV) Pneumococcal Vaccine: 65+ Years (2 of 2 - PCV) [facility] Start: 03-12-2022 Pneumococcal Vaccine: Age 50+ (2 of 2 - PCV) Pneumococcal Vaccine: Age 50+ (2 of 2 - PCV) [facility] Start: 03-12-2022 Pneumococcal Vaccine: Age 65+ (2 - PCV) Pneumococcal Vaccine: Age 65+ (2 - PCV) [facility] Start: 03-12-2022 Pneumococcal Vaccine: Age 65+ (2 of 2 - PCV) Pneumococcal Vaccine: Age 65+ (2 of 2 - PCV) [facility] Start: 03-12-2022 Pneumococcal Vaccine: Age 65+ (2 of 2 - PCV13) Pneumococcal Vaccine: Age 65+ (2 of 2 - PCV13) [facility] Start: 02-01-2022 Hemoglobin A1c measurement A1C [facility] Start: 01-25-2022 FUV, Provider: Phyllis Mae, Status: Giacomo, Time: 1:30 PM FUV, Provider: Phyllis Mae, Status: Giacomo, Time: 1:30 PM [facility] Internal [facility] Work Phone: Start: 01-04-2022 Patient encounter procedure MCRANNUAL, Provider: Phyllis Mae, Status: Giacomo, Time: 1:30 PM [facility] Work Phone: Start: 12-29-2021 COVID-19 Vaccine (3 - Booster for Ryan series) COVID-19 Vaccine (3 - Booster for Ryan series) [facility] Start: 11-03-2021 PTRECHADUL, Provider: Lorena Evangelista, Status: Giacomo, Time: 12:30 PM GURU, Provider: Lorena Evangelista, Status: Giacomo, Time: 12:30 PM [facility] [address] [place] Work Phone: Start: 11-01-2021 End: 11-01-2021 Patient encounter procedure 11/01/2021 Office Visit Endocrinology Santana Orosco PA-C [address] [place], [place] [phone] [facility] Start: 10-28-2021 End: 08-04-2022 Complete blood count with white cell differential, manual CBC and Differential Lab Routine Type 2 diabetes mellitus with stage 3b chronic kidney disease, with long-term current use of insulin (HCC) Expected: 10/28/2021, Expires: 08/04/2022 [facility] Comment on above: Expected: 10/28/2021, Expires: 2 Start: 10-28-2021 End: 08-04-2022 Comprehensive metabolic 2000 panel - Serum or Plasma Comprehensive Metabolic Panel Lab Routine Type 2 diabetes mellitus with stage 3b chronic kidney disease, with long-term current use of insulin (HCC) Expected: 10/28/2021, Expires: 08/04/2022 [facility] Work Phone: Comment on above: Expected: 10/28/2021, Expires: 2 Start: 10-28-2021 Hemoglobin A1c measurement A1C [facility] Start: 10-28-2021 End: 08-04-2022 Hemoglobin A1c/Hemoglobin.total in Blood Hemoglobin A1c Lab Routine Type 2 diabetes mellitus with stage 3b chronic kidney disease, with long-term current use of insulin (HCC) Expected: 10/28/2021, Expires: 08/04/2022 [facility] Comment on above: Expected: 10/28/2021, Expires: 2 Start: 10-28-2021 End: 08-04-2022 Lipid 1996 panel - Serum or Plasma Lipid Panel Lab Routine Type 2 diabetes mellitus with stage 3b chronic kidney disease, with long-term current use of insulin (HCC) Expected: 10/28/2021, Expires: 08/04/2022 [facility] Comment on above: Expected: 10/28/2021, Expires: 2 Start: 10-28-2021 End: 08-03-2022 Microalbumin measurement, urine, quantitative Microalbumin/Creatinine Ratio, UR Random Lab Routine Type 2 diabetes mellitus with stage 3b chronic kidney disease, with long-term current use of insulin (HCC) Expected: 10/28/2021, Expires: 08/03/2022 [facility] Comment on above: Expected: 10/28/2021, Expires: 2 Start: 10-28-2021 End: 08-04-2022 Thyrotropin [Units/volume] in Serum or Plasma TSH Lab Routine Type 2 diabetes mellitus with stage 3b chronic kidney disease, with long-term current use of insulin (HCC) Expected: 10/28/2021, Expires: 08/04/2022 [facility] Comment on above: Expected: 10/28/2021, Expires: 2 Start: 10-28-2021 End: 08-04-2022 Thyroxine (T4) free [Mass/volume] in Serum or Plasma T4, Free Lab Routine Type 2 diabetes mellitus with stage 3b chronic kidney disease, with long-term current use of insulin (HCC) Expected: 10/28/2021, Expires: 08/04/2022 [facility] Comment on above: Expected: 10/28/2021, Expires: 2 Start: 10-26-2021 COVID-19 Vaccine (3 - Booster for Ryan series) COVID-19 Vaccine (3 - Booster for Ryan series) [facility] Start: 10-25-2021 PTFUADULT4, Provider: Bib Payne, Status: Pen, Time: 11:30 AM PTFUADULT4, Provider: Bib Payne, Status: Pen, Time: 11:30 AM [facility] [place] [address] [place] Work Phone: Start: 10-18-2021 PTFUADULT4, Provider: Bib Payne, Status: Pen, Time: 11:30 AM PTFUADULT4, Provider: Bib Payne, Status: Pen, Time: 11:30 AM [place] [address] [place] Work Phone: Start: 10-15-2021 PTFUADULT4, Provider: Bib Payne, Status: Pen, Time: 1:15 PM PTFUADULT4, Provider: Bib Payne, Status: Pen, Time: 1:15 PM [facility] [place] [address] [place] Work Phone: Start: 10-08-2021 PTFUADULT4, Provider: Bib Payne, Status: Pen, Time: 12:30 PM PTFUADULT4, Provider: Bib Payne, Status: Pen, Time: 12:30 PM [facility] [place] [address] [place] Work Phone: Start: 10-04-2021 FUV, Provider: Phyllis Mae, Status: Pen, Time: 11:30 AM FUV, Provider: Phyllis Mae, Status: Pen, Time: 11:30 AM [place] [address] [place] Work Phone: Start: 09-29-2021 PTRECHECKA, Provider: Kirstie Bernal, Status: Pen, Time: 11:15 AM PTRECHECKA, Provider: Kirstie Bernal, Status: Pen, Time: 11:15 AM [facility] [place] [address] [place] Work Phone: Start: 09-27-2021 End: 09-27-2021 Patient encounter procedure 09/27/2021 Office Visit Pulmonology Tosha Prescott, RN INVASIVE [address] [email or web address] [place] [address] [facility] Start: 09-24-2021 PTFUADULT4, Provider: Bbi Payne, Status: Pen, Time: 12:30 PM PTFUADULT4, Provider: Bib Payne, Status: Pen, Time: 12:30 PM [facility] Work Phone: Start: 09-22-2021 PTFUADULT4, Provider: Bib Payne, Status: Pen, Time: 12:30 PM PTFUADULT4, Provider: Bib Payne, Status: Pen, Time: 12:30 PM [facility] Work Phone: Start: 09-20-2021 PTFUADULT4, Provider: Bib Payne, Status: Pen, Time: 12:15 PM PTFUADULT4, Provider: Bib Payne, Status: Pen, Time: 12:15 PM [facility] Work Phone: Start: 09-17-2021 PTFUADULT4, Provider: Bib Payne, Status: Pen, Time: 12:30 PM PTFUADULT4, Provider: Bib Payne, Status: Pen, Time: 12:30 PM [facility] Work Phone: Start: 09-16-2021 Hemoglobin A1c measurement [address] Start: 09-15-2021 PTFUADULT4, Provider: Bib Payne, Status: Pen, Time: 1:15 PM PTFUADULT4, Provider: Bib Payne, Status: Pen, Time: 1:15 PM [facility] Work Phone: Start: 09-14-2021 FUV, Provider: Phyllis Mae, Status: Pen, Time: 1:15 PM FUV, Provider: Phyllis Mae, Status: Pen, Time: 1:15 PM [facility] Work Phone: Start: 09-13-2021 PTFUADULT4, Provider: Bib Payne, Status: Pen, Time: 12:15 PM PTFUADULT4, Provider: Bib Payne, Status: Pen, Time: 12:15 PM [facility] Work Phone: Start: 09-10-2021 PTFUADULT4, Provider: Bib Payne, Status: Pen, Time: 12:30 PM PTFUADULT4, Provider: Bib Payne, Status: Pen, Time: 12:30 PM [facility] Work Phone: Start: 09-08-2021 PTFUADULT4, Provider: Bib Payne, Status: Pen, Time: 1:15 PM PTFUADULT4, Provider: Bib Payne, Status: Pen, Time: 1:15 PM [facility] Work Phone: Start: 09-06-2021 PTFUADULT4, Provider: Bib Payne, Status: Pen, Time: 12:15 PM PTFUADULT4, Provider: Bib Payne, Status: Pen, Time: 12:15 PM [facility] Work Phone: Start: 09-03-2021 PTFUADULT4, Provider: Bib Payne, Status: Pen, Time: 12:30 PM PTFUADULT4, Provider: Bib Payne, Status: Pen, Time: 12:30 PM [facility] Work Phone: Start: 09-01-2021 PTFUADULT4, Provider: Bib Payne, Status: Pen, Time: 12:30 PM PTFUADULT4, Provider: Bib Payne, Status: Pen, Time: 12:30 PM [facility] Work Phone: Start: 08-30-2021 PTFUADULT4, Provider: Bib Payne, Status: Pen, Time: 12:15 PM PTFUADULT4, Provider: Bib Payne, Status: Pen, Time: 12:15 PM [facility] Work Phone: Start: 08-27-2021 PTFUADULT4, Provider: Bib Payne, Status: Pen, Time: 10:45 AM PTFUADULT4, Provider: Bib Payne, Status: Pen, Time: 10:45 AM [facility] Work Phone: Start: 08-25-2021 PTFUADULT4, Provider: Bib Payne, Status: Pen, Time: 12:30 PM PTFUADULT4, Provider: Bib Payne, Status: Pen, Time: 12:30 PM [facility] Work Phone: Start: 08-23-2021 PTFUADULT4, Provider: Bib Payne, Status: Pen, Time: 12:00 PM PTFUADULT4, Provider: Bib Payne, Status: Pen, Time: 12:00 PM [facility] Work Phone: Start: 08-20-2021 PTFUADULT4, Provider: Bib Payne, Status: Pen, Time: 10:00 AM PTFUADULT4, Provider: Bib Payne, Status: Pen, Time: 10:00 AM [facility] Work Phone: Start: 08-17-2021 EPV, Provider: Phyllis Mae, Status: Pen, Time: 12:30 PM EPV, Provider: Phyllis Mae, Status: Pen, Time: 12:30 PM [facility] Work Phone: Start: 08-16-2021 PTFUADULT4, Provider: Bib Payne, Status: Pen, Time: 12:15 PM PTFUADULT4, Provider: Bib Payne, Status: Pen, Time: 12:15 PM [facility] Work Phone: Start: 08-04-2021 PTEVALADUL, Provider: Arturo Galvez, Status: Pen, Time: 1:15 PM PTEVALADUL, Provider: Arturo Galvez, Status: Pen, Time: 1:15 PM [facility] Internal [facility] Work Phone: Start: 08-03-2021 Diabetic foot examination Foot Exam [facility] Start: 07-28-2021 Albumin DL <= 20 mg/L (U) [Mass/Vol] Urine Microalbumin [facility] Start: 07-28-2021 Microalbumin measurement, urine, quantitative Urine Microalbumin [facility] Start: 07-14-2021 HbA1c (Bld) [Mass fraction] A1C [facility] Start: 07-14-2021 Hemoglobin A1c measurement A1C [facility] Start: 07-12-2021 FUV, Provider: Phyllis Mae, Status: Pen, Time: 11:30 AM FUV, Provider: Phyllis Mae, Status: Pen, Time: 11:30 AM [facility] Work Phone: Start: 07-06-2021 FUV, Provider: Phyllis Mae, Status: Pen, Time: 2:00 PM FUV, Provider: Phyllis Mae, Status: Pen, Time: 2:00 PM [facility] Work Phone: Start: 07-01-2021 End: 07-01-2021 Follow-up encounter 07/01/2021 Follow-Up Sports Medicine Dylon Galindo MD [address] [place], [place] [id number] [facility] Start: 06-30-2021 Influenza vaccination Sequential Influenza Vaccine (#1) [facility] Start: 06-24-2021 NPV, Provider: Anya Greenwood, Status: Pen, Time: 11:00 AM NPV, Provider: Anya Greenwood, Status: Pen, Time: 11:[address] [facility] Work Phone: Start: 06-17-2021 FUV, Provider: Jin Robbins II, Status: Pen, Time: 11:00 AM FUV, Provider: Jin Robbins II, Status: Pen, Time: 11:00 AM [facility] Work Phone: Start: 05-25-2021 Low dose computed tomography of chest without contrast Low-dose CT Lung Cancer Screen [facility] Start: 05-25-2021 Screening for malignant neoplasm of lung Low-dose CT Lung Cancer Screen [facility] Start: 05-13-2021 End: 05-13-2021 Follow-up encounter 05/13/2021 Follow-Up Sports Medicine Dylon Galindo MD [address] [place] [address] [place] [address] [phone] [facility] Start: 04-19-2021 NPV, Provider: Jin Robbins II, Status: Pen, Time: 2:45 PM NPV, Provider: Jin Robbins II, Status: Pen, Time: 2:45 PM [facility] Work Phone: Start: 04-19-2021 HbA1c (Bld) [Mass fraction] A1C [facility] Start: 04-14-2021 Screening for malignant neoplasm of lung Low-dose CT Lung Cancer Screen [facility] Start: 03-24-2021 End: 03-24-2021 Patient encounter procedure 03/24/2021 Office Visit Sports Medicine Dylon Galindo MD [address] [place] [address] [phone] [facility] Start: 02-02-2021 End: 02-02-2021 Office Visit 02/02/2021 Office Visit Endocrinology Erica Gardner PA-C [address] [place] [address] [phone] [facility] Start: 01-29-2021 COVID-19 Vaccine (Ryan SARS-CoV-2 Vaccination) COVID-19 Vaccine (Ryan SARS-CoV-2 Vaccination) [facility] Start: 01-25-2021 HbA1c (Bld) [Mass fraction] A1C [facility] Start: 12-27-2020 Diabetic foot examination Foot Exam [facility] Start: 12-11-2020 Albumin DL <= 20 mg/L (U) [Mass/Vol] URINE MICROALBUMIN [facility] Start: 12-08-2020 End: 12-08-2020 Appointment [facility] Start: 11-03-2020 End: 08-03-2021 Comprehensive metabolic 2000 panel Comprehensive Metabolic Panel Lab Routine Inadequately controlled diabetes mellitus (HCC) Expected: 11/03/2020 (Approximate), Expires: 08/03/2021 [facility] Comment on above: Expected: 11/03/2020 (Approximate), Expi res: 08/03/2021 Start: 11-03-2020 End: 08-03-2021 HbA1c (Bld) [Mass fraction] Hemoglobin A1c Lab Routine Inadequately controlled diabetes mellitus (HCC) Expected: 11/03/2020 (Approximate), Expires: 08/03/2021 [facility] Comment on above: Expected: 11/03/2020 (Approximate), Expi res: 08/03/2021 Start: 11-03-2020 End: 08-03-2021 Lipid 1996 panel Lipid Panel Lab Routine Inadequately controlled diabetes mellitus (HCC) Dyslipidemia Expected: 11/03/2020 (Approximate), Expires: 08/03/2021 [facility] Comment on above: Expected: 11/03/2020 (Approximate), Expi res: 08/03/2021 Start: 11-03-2020 End: 11-03-2020 Office Visit 11/03/2020 Office Visit Endocrinology David Waters, RAQUEL [address] Beth Dumont [address] [address] [phone] [facility] Phys[facility] Start: 10-01-2020 HbA1c (Bld) [Mass fraction] A1C [facility] Start: 07-03-2020 End: 07-03-2020 Office Visit 07/03/2020 Office Visit Endocrinology Erica Gardner PA-C [address] [address] [phone] [facility] Start: 06-30-2020 Influenza vaccination given [facility] Start: 06-10-2020 HbA1c (Bld) [Mass fraction] A1C [facility] Start: 05-25-2020 End: 05-25-2020 Appointment 05/25/2020 Appointment Radiology Lola Cruz MD [address] [place] [address] [phone] [facility] CT Scan Start: 05-19-2020 Xray Chest 2 View PA + Lateral [facility] Work Phone: Start: 04-20-2020 End: 04-20-2020 Office Visit 04/20/2020 Office Visit Cardiology Aquiles Herrera MD [address] [address] [phone] [facility] Start: 03-31-2020 End: 03-31-2020 Office Visit 03/31/2020 Office Visit Endocrinology David Waters, RAQUEL [address] [address] [phone] [facility] Start: 02-26-2020 End: 02-26-2020 Office Visit 02/26/2020 Office Visit Cardiology Aquiles Herrera MD [address] [address] [phone] [facility] Start: 01-23-2020 End: 01-23-2020 Low dose computed tomography of thorax CT Lung Cancer Screening Routine Cigarette Smoker Screening for malignant neoplasm of respiratory organ Expected: 01/23/2020, Expires: 01/23/2020 [facility] Comment on above: Expected: 01/23/2020, Expires: 0 Start: 01-23-2020 End: 01-23-2020 Office Visit 01/23/2020 Office Visit Pulmonology Lola Cruz MD [address] Cab[address] [place] [address] [phone] [facility] Start: 01-22-2020 Screening for malignant neoplasm of lung Low-dose CT Lung Cancer Screen [facility] Start: 01-20-2020 End: 01-20-2020 Appointment 01/20/2020 Appointment Radiology Lola Cruz MD [address] [place] [address] [phone] [facility] CT Scan Start: 12-27-2019 End: 12-27-2019 Office Visit 12/27/2019 Office Visit Endocrinology David Waters CNP [address] [address] [phone] [facility] Start: 12-04-2019 End: 12-04-2019 Appointment [facility] Start: 12-03-2019 End: 12-03-2019 Appointment [facility] Start: 11-12-2019 Prostate specific antigen measurement PROSTATE CANCER SCREENING DISCUSSION [facility] Work Phone: Start: 07-25-2019 End: 07-25-2019 Office Visit 07/25/2019 Office Visit Pulmonology Lola Cruz MD [address] [place] [address] [place] [address] [phone] [facility] Start: 07-02-2019 Albumin DL <= 20 mg/L (U) [Mass/Vol] URINE MICROALBUMIN [facility] Start: 06-30-2019 Influenza vaccination given SEQUENTIAL INFLUENZA VACCINE (#1) [facility] Start: 05-27-2019 End: 01-26-2020 Complete blood count with white cell differential, manual CBC and Differential Routine Anemia, unspecified type Monoclonal gammopathy Expected: 05/27/2019 (Approximate), Expires: 01/26/2020 [facility] Comment on above: Expected: 05/27/2019 (Approximate), Expi res: 01/26/2020 Start: 05-27-2019 End: 01-25-2020 Reticulocytes panel - Blood Reticulocyte Routine Anemia, unspecified type Monoclonal gammopathy Expected: 05/27/2019 (Approximate), Expires: 01/25/2020 [facility] Comment on above: Expected: 05/27/2019 (Approximate), Expi res: 01/25/2020 Start: 05-27-2019 End: 05-27-2019 Office Visit 05/27/2019 Office Visit Oncology Guillermo Dewitt MD [facility] [place] [address] [phone] [facility] Cancer Physicians Start: 05-12-2019 Hemoglobin A1c/Hemoglobin.total mass fraction (Bld) [facility] Start: 04-25-2019 Albumin DL <= 20 mg/L mass conc (U) URINE MICROALBUMIN [facility] Start: 01-26-2019 End: 09-29-2019 Cobalamin (Vitamin B12) mass conc Vitamin B12 Routine Anemia, unspecified type Monoclonal gammopathy Fatigue, unspecified type Expected: 01/26/2019 (Approximate), Expires: 09/29/2019 [facility] Comment on above: Expected: 01/26/2019 (Approximate), Expi res: 09/29/2019 Start: 01-26-2019 End: 09-29-2019 Complete blood count with white cell differential, manual CBC and Differential Routine Anemia, unspecified type Monoclonal gammopathy Fatigue, unspecified type Expected: 01/26/2019 (Approximate), Expires: 09/29/2019 [facility] Comment on above: Expected: 01/26/2019 (Approximate), Expi res: 09/29/2019 Start: 01-26-2019 End: 09-28-2019 Reticulocytes panel - Blood Reticulocyte Routine Anemia, unspecified type Monoclonal gammopathy Fatigue, unspecified type Expected: 01/26/2019 (Approximate), Expires: 09/28/2019 [facility] Comment on above: Expected: 01/26/2019 (Approximate), Expi res: 09/28/2019 Start: 01-26-2019 End: 09-29-2019 Thyrotropin Qn TSH Routine Anemia, unspecif ied type Monoclonal gammopathy Fatigue, unspecified type Expected: 01/26/2019 (Approximate), Expires: 09/29/2019 [facility] Comment on above: Expected: 01/26/2019 (Approximate), Expi res: 09/29/2019 Start: 01-25-2019 End: 01-25-2019 Ambulatory 01/25/2019 Office Visit Oncology Guillermo Dewitt MD [facility] [place] [address] [facility] Cancer Physicians Start: 01-22-2019 End: 01-22-2019 Ambulatory 01/22/2019 Office Visit Pulmonology Lola Cruz MD [address] [place] [address] [phone] [facility] Start: 01-21-2019 Hospital Encounter 01/21/2019 [facility] Lola Belcher MD [address] [place] [address] [phone] [facility] Start: 01-14-2019 Ambulatory 01/14/2019 [facility] Lola Belcher MD [address] [place] [address] [phone] [facility] Start: 11-28-2018 End: 11-28-2018 Office Visit 11/28/2018 Office Visit Cardiology Aquiles Herrera MD [address] [address] [phone] Cameron Munguia III, DO [address] [place] [address] [phone] [facility] Start: 11-26-2018 End: 11-26-2018 Appointment 11/26/2018 Appointment Cardiology Aquiles Herrera MD [address] [place] [address] [phone] [facility] Start: 10-18-2018 End: 10-18-2018 Ambulatory 10/18/2018 Office Visit Cardiology Aquiles Herrera MD [address] [place] [address] [phone] [facility] Start: 09-28-2018 End: 09-28-2018 Ambulatory 09/28/2018 Office Visit Oncology Guillermo Dewitt MD [address] [place] [address] [facility] Start: 07-25-2018 End: 07-25-2018 Ambulatory 07/25/2018 Office Visit Pulmonology Lola Cruz MD [facility] [place] [address] [phone] [facility] Start: 07-12-2018 End: 07-12-2018 Ambulatory 07/12/2018 Office Visit Oncology Guillermo Dewitt MD [address] [place] [address] [facility] Start: 06-30-2018 Influenza vaccination SEQUENTIAL INFLUENZA VACCINE (#1) [facility] Start: 05-29-2018 End: 05-29-2018 Ambulatory [facility] Start: 05-10-2018 End: 05-10-2018 Ambulatory 05/10/2018 Office Visit Oncology Guillermo Dewitt MD [address] [place] [address] [facility] Start: 05-06-2018 End: 01-05-2019 CBC and Differential CBC and Differential Routine Anemia, unspecified type Monoclonal gammopathy Expected: 05/06/2018 (Approximate), Expires: 01/05/2019 [facility] Start: 05-06-2018 End: 01-04-2019 Ferritin Ferritin Routine Anemia, unspecified type Monoclonal gammopathy Expected: 05/06/2018 (Approximate), Expires: 01/04/2019 [facility] Start: 05-06-2018 End: 01-04-2019 Reticulocytes panel - Blood Reticulocyte Routine Anemia, unspecified type Monoclonal gammopathy Expected: 05/06/2018 (Approximate), Expires: 01/04/2019 [facility] Start: 01-17-2018 [facility] Start: 01-04-2018 Ambulatory 01/04/2018 Office Visit Oncology Guillermo Dewitt MD [address] [place] [address] [phone] [facility] Phys[facility] Start: 12-08-2017 End: 09-08-2018 CBC and Differential CBC and Differential Routine Monoclonal gammopathy Abdominal pain, unspecified abdominal location Expected: 12/08/2017 (Approximate), Expires: 09/08/2018 [facility] Work Phone: Start: 12-08-2017 End: 09-07-2018 Immunofixation, Serum Immunofixation, Serum Routin e Monoclonal gammopathy Abdominal pain, unspecified abdominal location Expected: 12/08/2017 (Approximate), Expires: 09/07/2018 [facility] Work Phone: Start: 12-08-2017 End: 09-07-2018 Immunoglobulin Free Light Chains,Blood Immunoglobulin Free Light Chains,Blood Routine Monoclonal gammopathy Abdominal pain, unspecified abdominal location Expected: 12/08/2017 (Approximate), Expires: 09/07/2018 [facility] Work Phone: Start: 12-08-2017 End: 09-07-2018 Protein Electrophoresis, Blood Protein Electrophoresis, Blood Routine Monoclonal gammopathy Abdominal pain, unspecified abdominal location Expected: 12/08/2017 (Approximate), Expires: 09/07/2018 [facility] Work Phone: Start: 12-08-2017 End: 09-07-2018 Reticulocytes panel - Blood Reticulocyte Routine Monoclonal gammopathy Abdominal pain, unspecified abdominal location Expected: 12/08/2017 (Approximate), Expires: 09/07/2018 [facility] Work Phone: Start: 12-07-2017 Ambulatory 12/07/2017 Office Visit Oncology Guillermo Dewitt MD [address] [facility] [address] [phone] [facility] Start: 10-16-2017 Ambulatory 10/16/2017 Office Visit Cardiology Aquiles Herrera MD [address] [place] [address] [facility] Start: 09-07-2017 Ambulatory 09/07/2017 Office Visit Oncology Guillermo Dewitt MD [address] [place] [address] [facility] Start: 09-06-2017 Ambulatory 09/06/2017 [facility] Lola Belcher MD [address] [place] [address] [phone] [facility] Start: 08-17-2017 End: 08-18-2018 Cobalamins (Vitamin B12) Vitamin B12 Routine Anemia, unspecified type Monoclonal gammopathy Expected: 08/17/2017, Expires: 08/18/2018 [facility] Work Phone: Start: 08-17-2017 End: 08-18-2018 Comprehensive metabolic panel [AGGREGATE] Comprehensive Metabolic Panel Routine Anemia, unspecified type Monoclonal gammopathy Expected: 08/17/2017, Expires: 08/18/2018 [facility] Work Phone: Start: 08-17-2017 End: 08-17-2018 Ferritin Ferritin Routine Anemia, unspecified type Monoclonal gammopathy Expected: 08/17/2017, Expires: 08/17/2018 [facility] Phone: Start: 08-17-2017 End: 08-18-2018 Folate Folate Routine Anemia, unspecified type Monoclonal gammopathy Expected: 08/17/2017, Expires: 08/18/2018 [facility] Phone: Start: 08-17-2017 End: 08-17-2018 Hemoglobin presence in stool Occult Blood Stool Routine Anemia, unspecified type Monoclonal gammopathy Expected: 08/17/2017, Expires: 08/17/2018 [facility] Phone: Start: 08-17-2017 End: 08-17-2018 Immunofixation, Serum Immunofixation, Serum Routin e Anemia, unspecified type Monoclonal gammopathy Expected: 08/17/2017, Expires: 08/17/2018 [facility] Phone: Start: 08-17-2017 End: 08-17-2018 Immunoglobulin Free Light Chains,Blood Immunoglobulin Free Light Chains,Blood Routine Anemia, unspecified type Monoclonal gammopathy Expected: 08/17/2017, Expires: 08/17/2018 [facility] Phone: Start: 08-17-2017 End: 08-17-2018 Protein Electrophoresis, Blood Protein Electrophoresis, Blood Routine Anemia, unspecified type Monoclonal gammopathy Expected: 08/17/2017, Expires: 08/17/2018 [facility] Phone: Start: 08-17-2017 End: 08-18-2018 Reticulocytes panel - Blood Reticulocyte Routine Anemia, unspecified type Monoclonal gammopathy Expected: 08/17/2017, Expires: 08/18/2018 [facility] Phone: Start: 08-17-2017 End: 08-17-2018 XR Bone Survey Complete XR Bone Survey Complete Routine Anemia, unspecified type Monoclonal gammopathy Expected: 08/17/2017, Expires: 08/17/2018 [facility] Phone: Start: 06-30-2017 Influenza vaccination SEQUENTIAL INFLUENZA VACCINE (#1) [facility] Work Phone: Start: 2014 Abdominal aortic aneurysm screening Abdominal Aortic Aneurysm (AAA) Screening [facility] Start: 2014 Fall risk assessment [facility] Start: 2014 Pneumococcal vaccination [facility] Work Phone: Start: 2014 Ultrasound scan of abdominal aorta ABDOMINAL AORTIC ULTRASOUND [facility] Work Phone: Start: 2009 Hepatitis B Vaccines (1 of 3 - Risk 3-dose series) Hepatitis B Vaccines (1 of 3 - Risk 3-dose series) [facility] Start: 2009 RSV patients and/or patients aged 60+ years (1 - 1-dose 60+ series) RSV patients and/or patients aged 60+ years (1 - 1-dose 60+ series) [facility] Start: 2009 Zoster vacc, sc ZOSTER VACCINE [facility] Work Phone: Start: 1999 Administration of herpes zoster vaccine ZOSTER VACCINES (1 of 2) [facility] Start: 1999 Protein mass conc COLON CANCER SCREENING DISCUSSION [facility] Work Phone: Start: 1999 Screening for malignant neoplasm of colon [facility] Start: 1999 ZOSTER VACCINES (1 of 2) ZOSTER VACCINES (1 of 2) [facility] Start: 1968 Administration of herpes zoster vaccine Zoster Vaccines (1 of 2) [facility] Start: 1968 Hepatitis A Vaccines (1 of 2 - Risk 2-dose series) Hepatitis A Vaccines (1 of 2 - Risk 2-dose series) [facility] Start: 1968 Third diphtheria, tetanus and acellular pertussis (DTaP) vaccination TDAP (ADULT) [facility] Work Phone: Start: 1968 Urine screening for protein Diabetes: Urine Protein Screening [facility] Start: 1968 Zoster Vaccines (1 of 2) Zoster Vaccines (1 of 2) [facility] Start: 1967 Hepatitis C antibody, confirmatory test Hepatitis C Screening [facility] Start: 1967 Hepatitis C screening Hepatitis C Screening [facility] Start: 1967 Tetanus vaccination TETANUS [facility] Work Phone: Start: 1965 COVID-19 Vaccine (1 of 2) COVID-19 Vaccine (1 of 2) [facility] Start: 1961 Adolescent depression screening assessment Depression Screening (PHQ9) [facility] Start: 1961 Depression screening using PHQ-9 (Patient Health Questionnaire 9) score Depression Screening (PHQ9) [facility] Start: 1959 Glaucoma screening [facility] Start: 1959 End: 1959 Diabetic foot examination (regime/therapy) [facility] Start: 1959 End: 1959 Ophthalmic examination and evaluation [facility] Start: 1959 End: 1959 Urine, microalbumin URINE MICROALBUMIN [facility] Work Phone: Start: 1955 Pneumococcal Vaccine: Age 65+ (1 of 4 - PCV13) Pneumococcal Vaccine: Age 65+ (1 of 4 - PCV13) [facility] Start: 1952 History and physical examination, annual for health maintenance Wellness Visit [facility] Start: 1950 Hepatitis A Vaccines (1 of 2 - Risk 2-dose series) Hepatitis A Vaccines (1 of 2 - Risk 2-dose series) [facility] Start: 1949 Colonoscopy COLONOSCOPY [facility] Start: 1949 Depression screening using PHQ-9 (Patient Health Questionnaire 9) score DEPRESSION SCREENING (PHQ9) [facility] Start: 1949 Fall risk assessment Falls Risk Assessment [facility] Start: 1949 Hemoglobin A1c measurement Diabetes: Hemoglobin A1C [facility] Start: 1949 Hepatitis C antibody, confirmatory test [facility] Start: 1949 Medicare Annual Wellness Visit Medicare Annual Wellness Visit (AWV) [facility] Start: 1949 Prostate specific antigen measurement PSA Level [facility] Start: 1949 Protein mass conc COLONOSCOPY [facility] Start: 1949 Screening for malignant neoplasm of colon [facility] Start: 1949 Screening for malignant neoplasm of lung Low-dose CT Lung Cancer Screen [facility] Start: 1949 US scan of abdominal aorta Abdominal Aortic Ultrasound [facility] Start: 1949 End: 1949 HbA1c [facility] Work Phone: Start: 1949 HEPATITIS C SCREENING HEPATITIS C SCREENING [facility] Work Phone: Start: 1949 Low-dose CT Lung Cancer Screen Low-dose CT Lung Cancer Screen [facility] Work Phone: Start: 1949 Screening colonoscopy COLONOSCOPY [facility] Work Phone: Start: 1949 End: 1949 Tetanus vaccination [facility] Work Phone: Aerobic microbial culture Wound Aerobic Culture Microbiology Routine Ingrown toenail Paronychia of great toe PVD (peripheral vascular disease) ([facility]) Tobacco use Xerosis of skin Diabetic foot ([facility]) Ordered: 05/14/2024 [facility] Work Phone: Comment on above: Ordered: 05/14/2024 End: 02-01-2021 Carotid artery doppler assessment Carotid Duplex Vascular Ultrasound Routine Left carotid artery stenosis History of carotid endarterectomy 1 Occurrences starting 12/04/2019 until 02/01/2021 [facility] Comment on above: 1 Occurrences starting 12/04/2019 until 02/01/2021 End: 01-27-2020 Carotid artery doppler assessment Carotid Duplex Routine Stenosis of left carotid artery History of right-sided carotid endarterectomy 1 Occurrences starting 11/28/2018 until 01/27/2020 [facility] Comment on above: 1 Occurrences starting 11/28/2018 until 01/27/2020 End: 12-27-2020 Complete blood count with white cell differential, manual CBC and Differential Lab Routine IDDM (insulin dependent diabetes mellitus) (HCC) 1 Occurrences starting 12/27/2019 until 12/27/2020 [facility] Comment on above: 1 Occurrences starting 12/27/2019 until 12/27/2020 End: 05-08-2025 Complete blood count with white cell differential, manual CBC and Differential Lab Routine Type 2 diabetes mellitus with stage 3b chronic kidney disease, with long-term current use of insulin (HCC) 1 Occurrences starting 05/07/2024 until 05/08/2025 [facility] Work Phone: Comment on above: 1 Occurrences starting 05/07/2024 until 05/08/2025 End: 12-27-2020 Comprehensive metabolic 2000 panel Comprehensive Metabolic Panel Lab Routine IDDM (insulin dependent diabetes mellitus) ([facility]) 1 Occurrences starting 12/27/2019 until 12/27/2020 [facility] Comment on above: 1 Occurrences starting 12/27/2019 until 12/27/2020 End: 01-10-2023 Comprehensive metabolic 2000 panel - Serum or Plasma Comprehensive Metabolic Panel Lab Routine Type 2 diabetes mellitus with stage 3b chronic kidney disease, with long-term current use of insulin ([facility]) 1 Occurrences starting 01/10/2022 until 01/10/2023 [facility] Work Phone: Comment on above: 1 Occurrences starting 01/10/2022 until 01/10/2023 End: 05-08-2025 Comprehensive metabolic 2000 panel - Serum or Plasma Comprehensive Metabolic Panel Lab Routine Type 2 diabetes mellitus with stage 3b chronic kidney disease, with long-term current use of insulin ([facility]) 1 Occurrences starting 05/07/2024 until 05/08/2025 [facility] Comment on above: 1 Occurrences starting 05/07/2024 until 05/08/2025 Doppler ultrasonography of artery of lower limb Segmental Doppler Lower Extremity Arterial Vascular Ultrasound Routine Diabetic foot ([facility]) PVD (peripheral vascular disease) (HCC) Type 2 diabetes mellitus with stage 3b chronic kidney disease, with long-term current use of insulin ([facility]) Claudication of lower extremity ([facility]) Tobacco use Xerosis of skin Onychodystrophy Ordered: 12/19/2023 [facility] Work Phone: Comment on above: Ordered: 12/19/2023 End: 06-03-2023 Echocardiography Echocardiogram complete Echocardiography Routine GREEN (dyspnea on exertion) 1 Occurrences starting 06/02/2022 until 06/03/2023 [facility] Work Phone: Comment on above: 1 Occurrences starting 06/02/2022 until 06/03/2023 End: 12-27-2020 Free T4 [Mass/Vol] T4, Free Lab Routine IDDM (insulin dependent diabetes mellitus) ([facility]) 1 Occurrences starting 12/27/2019 until 12/27/2020 [facility] Comment on above: 1 Occurrences starting 12/27/2019 until 12/27/2020 H/O: surgery History of hand surgery [facility] End: 12-27-2020 HbA1c (Bld) [Mass fraction] Hemoglobin A1c Lab Routine IDDM (insulin dependent diabetes mellitus) (HCC) 1 Occurrences starting 12/27/2019 until 12/27/2020 [facility] Comment on above: 1 Occurrences starting 12/27/2019 until 12/27/2020 End: 01-10-2023 Hemoglobin A1c/Hemoglobin.total in Blood Hemoglobin A1c Lab Routine Type 2 diabetes mellitus with stage 3b chronic kidney disease, with long-term current use of insulin (HCC) 1 Occurrences starting 01/10/2022 until 01/10/2023 [facility] Comment on above: 1 Occurrences starting 01/10/2022 until 01/10/2023 End: 05-08-2025 Hemoglobin A1c/Hemoglobin.total in Blood Hemoglobin A1c Lab Routine Type 2 diabetes mellitus with stage 3b chronic kidney disease, with long-term current use of insulin (HCC) 1 Occurrences starting 05/07/2024 until 05/08/2025 [facility] Comment on above: 1 Occurrences starting 05/07/2024 until 05/08/2025 History of cardiovascular surgery History of endarterectomy [facility] History of colonoscopy History of colonoscopy [facility] History of repair of musculotendinous cuff of shoulder History of repair of rotator cuff [facility] End: 06-10-2021 Incentive spirometry Incentive spirometry Respiratory Care Routine Closed fracture of multiple ribs of left side, initial encounter 1 Occurrences starting 06/10/2020 until 06/10/2021 [facility] Comment on above: 1 Occurrences starting 06/10/2020 until 06/10/2021 End: 12-27-2020 Lipid 1996 panel Lipid Panel Lab Routine IDDM (insulin dependent diabetes mellitus) (HCC) 1 Occurrences starting 12/27/2019 until 12/27/2020 [facility] [facility] Comment on above: 1 Occurrences starting 12/27/2019 until 12/27/2020 Low dose computed tomography of thorax CT Lung Cancer Screening Imaging Routine Screening for malignant neoplasm of respiratory organ Cigarette Smoker 05/25/2020 12:53 PM EDT [facility] End: 01-29-2020 Measurement of segmental blood pressure of artery of lower limb using doppler ultrasonography Segmental Doppler Lower Extremity Arterial W Exercise Routine Stenosis of left iliac artery (HCC) 1 Occurrences starting 11/28/2018 until 01/29/2020 [facility] Comment on above: 1 Occurrences starting 11/28/2018 until 01/29/2020 End: 04-05-2024 NM Brain Datscan SPECT CT Single Area Single Day NM Brain Datscan SPECT CT Single Area Single Day Imaging Routine 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HCC) 1 Occurrences starting 04/05/2023 until 04/05/2024 [facility] Work Phone: Comment on above: 1 Occurrences starting 04/05/2023 until 04/05/2024 Past history of procedure History of esophagogastroduodenoscopy (EGD) [facility] Patient Education ED Ankle Fracture [facility] Work Phone: Patient referral [facility] Work Phone: End: 09-09-2025 SPECT Heart perfusion NM Myocardial Perfusion Multiple SPECT Imaging Routine Chest pain, unspecified type History of CVA (cerebrovascular accident) 1 Occurrences starting 09/09/2024 until 09/09/2025 [facility] Work Phone: Comment on above: 1 Occurrences starting 09/09/2024 until 09/09/2025 Standard chest X-ray XR Chest AP /PA and LAT Imaging APOLINAR 05/27/2019 11:50 AM EDT [facility] End: 05-08-2025 Thyrotropin [Units/volume] in Serum or Plasma TSH Lab Routine Type 2 diabetes mellitus with stage 3b chronic kidney disease, with long-term current use of insulin ([facility]) 1 Occurrences starting 05/07/2024 until 05/08/2025 [facility] Comment on above: 1 Occurrences starting 05/07/2024 until 05/08/2025 End: 05-08-2025 Thyroxine (T4) free [Mass/volume] in Serum or Plasma T4, Free Lab Routine Type 2 diabetes mellitus with stage 3b chronic kidney disease, with long-term current use of insulin ([facility]) 1 Occurrences starting 05/07/2024 until 05/08/2025 [facility] Comment on above: 1 Occurrences starting 05/07/2024 until 05/08/2025 End: 12-27-2020 TSH Qn TSH Lab Routine IDDM (insuli n dependent diabetes mellitus) ([facility]) 1 Occurrences starting 12/27/2019 until 12/27/2020 [facility] Comment on above: 1 Occurrences starting 12/27/2019 until 12/27/2020 Urinalysis Urinalysis Routi ne Anemia, unspecified type Monoclonal gammopathy Ordered: 01/04/2018 [facility] End: 04-14-2020 ED Fast Scan US ED Fast Scan Imaging STAT One time imaging One time imaging for 1 Occurrences starting 04/14/2020 until 04/14/2020 [facility] Comment on above: One time imaging One time imaging for 1 Occurrences starting 04/14/2020 until 04/14/2020 ED Fast Scan US ED Fast Scan Imaging STAT 04/14/2020 1:16 PM EDT [facility] NEGATED: Highlighted row has been ruled out! Planned Goals not documented [facility] Work Phone: Immunizations Immunization Date Immunization Notes Care Provider [facility] 12-05-2024 influenza, high dose seasonal, preservative-free Phyllis Mae MD Work Phone: [facility] Work Phone: 02-27-2024 zoster vaccine-recombinant adjuvanted (Shingrix, PF,) 50 mcg/0.5 mL vaccine Phyllis Mae MD Work Phone: [facility] Work Phone: 02-27-2024 pneumoc 20-chris conj- dip cr,PF, (Prevnar 20, PF,) 0.5 mL vaccine Phyllis Mae MD Work Phone: [facility] Work Phone: 02-27-2024 respiratory syncytia l virus, RSV, vaccine, adjuvanted, age 60y+ (Arexvy, PF,) 120 mcg/0.5 mL suspension for reconstitution Phyllis Mae MD Work Phone: [facility] Work Phone: 08-22-2023 Flu vaccine, quadrivalent, high-dose, preservative free, age 65y+ (FLUZONE) Phyllis Mae MD Work Phone: [facility] Work Phone: 08-22-2023 pneumoc 20-chris conj- dip cr,PF, (Prevnar 20, PF,) 0.5 mL vaccine Phyllis Mae MD Work Phone: [facility] Work Phone: 08-22-2023 influenza virus vacc ine, unspecified formulation David Jt [facility] Work Phone: [facility] 09-20-2022 Fluzone High-Dose Quadrivalent 0.7 ML Intramuscular Suspension Prefilled Syringe; 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: [Fluzone High-Dose Quadrivalent 0.7 ML Intramuscular Suspension Prefilled Syringe] Phyllis Mae Work Phone: [facility] Medicine Work Phone: Comment on above: Series: 09-20-2022 influenza, high dose seasonal, preservative-free Phyllis Mae MD Work Phone: [facility] Work Phone: 08-31-2021 Ryan COVID-19 Vac cine 0.5 ML Intramuscular Suspension Phyllis Mae Work Phone: [facility] Internal [facility] Work Phone: Comment on above: Series: 08-31-2021 Moderna COVID-19 Vac cine 100 MCG/0.5ML Intramuscular Suspension Phyllis Mae Work Phone: [facility] Work Phone: 08-24-2021 Fluzone High-Dose Quadrivalent 0.7 ML Intramuscular Suspension Prefilled Syringe; 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: [Fluzone High-Dose Quadrivalent 0.7 ML Intramuscular Suspension Prefilled Syringe] Phyllis Mae Work Phone: [facility] Work Phone: Comment on above: Series: 08-24-2021 influenza, high dose seasonal, preservative-free Pyhllis Mae MD Work Phone: [facility] Work Phone: 03-22-2021 tuberculin skin test ; purified protein derivative solution, intradermal Phyllis Mae MD Work Phone: [facility] Work Phone: 03-12-2021 pneumococcal polysaccharide vaccine, 23 valent Kateryna Yeboah RN INVASIVE Work Phone: [facility] 03-12-2021 pneumococcal vaccine , unspecified formulation Kateryna Yeboah RN INVASIVE Work Phone: [facility] 03-12-2021 tuberculin skin test ; purified protein derivative solution, intradermal Phyllis Mae MD Work Phone: [facility] Work Phone: 01-01-2021 Ryan SARS-CoV-2 Vaccination Jesus Toribio [facility] 07-20-2020 influenza, injectabl e, quadrivalent, contains preservative Phyllis Mae MD Work Phone: [facility] Work Phone: 07-20-2020 influenza, injectabl e, quadrivalent, preservative free; 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: [Flulaval Quadrivalent 0.5 ML Intramuscular Suspension Prefilled Syringe] Phyllis Mae [facility] Work Phone: Comment on above: Series: 06-10-2020 tetanus toxoid, redu marcelina diphtheria toxoid, and acellular pertussis vaccine, adsorbed Phyllis Mae Work Phone: [facility] Work Phone: 07-25-2019 influenza, high dose seasonal, preservative-free Aquiles Herrera [facility] 11-12-2018 HEMOGLOBIN A1C Aquiles Herrera [facility] 07-25-2018 influenza, injectable,quadrivalent, preservative free, pediatric Josh Togliatti [facility] 11-23-2000 influenza virus vacc ine, whole virus Phyllis Mae Work Phone: [facility] Work Phone: Payers Date Payer Category Payer Dual Eligibility Medicare/Medicaid Organization [employer] DUAL ADVANTAGE [id number] 2024 Medicare HMO [employer]M MEDIBLUE ESSENTIAL/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/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/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 HMO [id number] 2024 Medicare [id number] 2024 Self-pay 2019 Medicare HUMANA MANAGED M EDICARE HUMANA [facility] ADVANTAGE CHOICE PPO xxxxxxxxx 2019-Present xxxxxxxxx [id number] .[id number] 2019 Medicare [id number] 1.2.840.381047.1.13.385.2 .[id number] 2019 Medicare PPO HUMANA M[employer] ADVAN TAGE CHOICE PPO [id number] .[id number] 2019 Unknown 2019 Medicare [id number] 2018 Medicaid [id number] 2.16.840.1.431530.3.249.1 3 2018 Medicaid [id number] 1.2.840.861332.1.13.385.2 .7.3.714930.315 2017 Medicaid 2017 Medicaid [id number] 2.16.840.1.387710.3.249.1 3 2014 Medicare [id number] 2.16.840.1.022463.3.249.1 3 2014 Medicare MEDICARE MEDICAR E PART A & B xxxxxxxxxxx 2014-Present [place] xxxxxxxxxxx 1.2.840.606990.1.13.385.2 .[id number] 2014 Medicare 2014 Medicare [id number] 1950 Unknown [id number] 2.16840.1.601180.3.579.2 1950 Unknown [id number] 2.16.840.1.025665.3.579.2 .1950 Unknown [id number] 2.16.840.1.657641.3.579.2 1950 Unknown [id number] 2.16.840.1.980637.3.579.2 .1950 Unknown [id number] 2.16.840.1.998371.3.579.2 1950 Unknown [id number] 2.16.840.1.956244.3.579.2 .1950 Unknown [id number] 2.16.840.1.221904.3.579.2 .1950 Unknown [id number] 2.16.840.1.030810.3.579.2 .1950 Unknown [id number] 2.16.840.1.387547.3.579.2 .1950 Unknown [id number] 2.16.840.1.457375.3.579.2 .1950 Unknown [id number] 2.16.840.1.378139.3.579.2 .1950 Unknown [id number] 2.16.840.1.346316.3.579.2 .1950 Unknown [id number] 2.16.840.1.939592.3.579.2 .1950 Unknown [id number] 2.16.840.1.378805.3.579.2 .1950 Unknown [id number] 2.16.840.1.954931.3.579.2 .900 1950 Unknown [id number] 2.16.840.1.374723.3.579.2 .1068 1949 Unknown [id number] 2.16.840.1.360540.3.579.2 .1068 1949 Unknown [id number] 2.16.840.1.241070.3.579.2 .1068 1949 Unknown [id number] 2.16.840.1.512199.3.579.2 .1068 1949 Unknown [id number] 2.16.840.1.363495.3.579.2 .1068 1949 Unknown [id number] 2.16.840.1.554017.3.579.2 .1069 1949 Unknown [id number] 2.16.840.1.269217.3.579.2 .356 1949 Unknown [id number] 2.16.840.1.999946.3.579.2 .356 1949 Unknown [id number] 2.16.840.1.220101.3.579.2 .356 1949 Unknown [id number] 2.16.840.1.637255.3.579.2 .356 1949 Unknown [id number] 2.16.840.1.341376.3.579.2 .356 1949 Unknown [id number] 2.16.840.1.478615.3.579.2 .1243 1949 Unknown [id number] 2.16.840.1.515413.3.579.2 .1950 Unknown [id number] 2.16.840.1.279878.3.579.2 .90 1950 Unknown [id number] 2.16.840.1.680319.3.579.2 .1949 Unknown [id number] 2.16.840.1.994627.3.579.2 .903 1949 Unknown [id number] 2.16.840.1.353027.3.579.2 .1949 Unknown [id number] 2.16.840.1.415742.3.579.2 .90 1949 Unknown [id number] 2.16.840.1.492146.3.579.2 .1949 Unknown [id number] 2.16.840.1.202300.3.579.2 .90 1949 Unknown [id number] 2.16.840.1.937365.3.579.2 1949 Unknown [id number] 2.16.840.1.199111.3.579.2 .1950 Unknown [id number] 2.840.1.180698.3.579.2 .1949 Unknown [id number] 2.16840.1.441998.3.579.2 .1244 1949 Unknown [id number] 2.840.1.936581.3.579.2 .1244 1949 Unknown [id number] 2.840.1.226549.3.579.2 .1244 1949 Unknown [id number] 2.840.1.626483.3.579.2 .1244 1949 Unknown [id number] 2.840.1.009926.3.579.2 .1244 1949 Unknown [id number] 2.840.1.154373.3.579.2 1949 Unknown [id number] 2.840.1.310057.3.579.2 1949 Unknown [id number] 2.840.1.953968.3.579.2 1949 Unknown [id number] 2.840.1.988091.3.579.2 1949 Unknown [id number] 2.840.1.049865.3.579.2 .1950 Unknown [id number] 2.16840.1.241275.3.579.2 1949 Unknown [id number] 2.16840.1.792444.3.579.2 1949 Unknown [id number] 2.16840.1.424220.3.579.2 1949 Unknown [id number] 2.840.1.793460.3.579.2 .903 1949 Unknown [id number] .840.1.952942.3.579.2 .90 1949 Unknown [id number] 2.840.1.134763.3.579.2 .1950 Unknown [id number] 840.1.785942.3.579.2 .1949 Unknown [id number] .840.1.866022.3.579.2 .124 1949 Unknown [id number] 12.15.830.1.886715.3.579.2 .1243 1949 Unknown [id number] 12.15.830.1.438766.3.579.2 .1243 1949 Unknown [id number] 12.15.830.1.030952.3.579.2 .1244 Medicare xxxxxxxxxx 84.1.365790.3.249.1 3 Unknown [id number] 12.15.830.1.029777.3.579.2 .462 Unknown [id number] 840.1.956542.3.579.2 .462 Unknown [id number] 840.1.198445.3.579.2 .462 Unknown [id number] 840.1.527303.3.579.2 .462 Unknown [id number] 840.1.395120.3.579.2 .462 Unknown [id number] 840.1.185821.3.579.2 .462 Unknown [id number] 840.1.054047.3.579.2 .462 Unknown [id number] 2840.1.808743.3.579.2 .462 Unknown [id number] 840.1.520341.3.579.2 .462 Social History Date Type Detail Facility Start: 10-30-1954 End: 10-03-2024 Tobacco smoking status NHIS Current every day smoker [facility] Work Phone: Start: 01-04-2018 End: 02-28-2023 Cigarettes smoked current (pack per day) - Reported [facility] Work Phone: Start: 1950 Sex Assigned At Not on file O [facility] Work Phone: Start: 10-30-1954 History of tobacco use Cigarette Smoker [facility] Start: 07-10-2018 End: 03-17-2022 Tobacco Comment Former 3-4 ppd 40 years [facility] Start: 05-24-2017 Alcohol Comment occasional [facility] Start: 10-25-2019 End: 01-02-2025 Alcohol intake Current drinker of alcohol (finding) [facility] Exposure to SARS-CoV-2 (event) Unable to assess [facility] Start: 12-31-2021 End: 12-05-2024 Exposure to SARS-CoV-2 (event) Not sure [facility] Start: 08-31-2020 End: 10-03-2024 Tobacco use and exposure Never used [facility] Tobacco smoking consumption unknown [facility] Start: 04-01-2019 End: 03-07-2023 Alcohol intake Ex-drinker (finding) [facility] Start: 02-28-2023 End: 03-07-2023 Tobacco use panel [facility] Work Phone: Within the last year , have you been afraid of your partner or ex-partner? No [facility] Are you now , , , , never or living with a partner? [facility] How often to you hav e a drink containing alcohol? Monthly or less [facility] How many standard drinks containing alcohol do you have on a typical day? 1 or 2 [facility] How often do you hav e 6 or more drinks on 1 occasion? Never [facility] How hard is it for you to pay for the very basics like food, housing, medical care, and heating Not hard at all [facility] Do you feel stress - tense, restless, nervous, or anxious, or unable to sleep at night because your mind is troubled all the time - these days [OSQ] Only a little [facility] (I/We) worried whether (my/our) food would run out before (I/we) got money to buy more. Never true [facility] Start: 09-28-2018 Gender identity Identifies as male gender (finding) [facility] Start: 09-28-2018 Sexual orientation Heterosexual (fin ding) [facility] Start: 08-22-2023 Alcohol Comment [facility] Work Phone: Start: 01-07-2025 End: 01-29-2025 Sex Male (finding) [facility] Start: 1950 Sex Assigned At Male [facility] Start: 04-10-2025 Tobacco smoking status NHIS Ex-smoker (finding) [facility] NEGATED: Highlighted row - - [facility] Work Phone: Medical Equipment Procedure Code Equipment Code Equipment Origin al Text Equipment Identifier Dates [id number] Start: 10-29-2018 End: 12-05-2024 USE DIRECTED TWICE DAILY WITH LANTUS DX: DMII/E11.9 [id number] Start: 10-28-2018 End: 12-27-2019 1 (one) strip by Miscellaneous route 4 (four) times a day . [id number] Start: 12-27-2019 Use as directed, 4 times daily. . [id number] Start: 12-27-2019 End: 04-06-2021 Use to check BG 3x daily. DX code E11.9 on insulin . [id number] Start: 01-01-2020 End: 01-13-2021 Accu-Chek Elli Plus In Vitro Strip TEST TWICE DAILY. Refills: 0 Active Lancets Ultra Th in use to check glucose bid Refills: 0 Active Accu-Chek Elli Plus In Vitro Strip TEST TWICE DAILY. Refills: 0 DO Active Lancets Ultra Th in use to check glucose bid Refills: 0 DO Active Accu-Chek Elli Plus In Vitro Strip TEST TWICE DAILY. Refills: 0 Active Lancets Ultra Th in use to check glucose bid Refills: 0 Active Accu-Chek Elli Plus In Vitro Strip TEST TWICE DAILY. Refills: 0 DO Active Lancets Ultra Th in use to check glucose bid Refills: 0 DO Active USE TO CHECK BG 3X DAILY. DX CODE E11.9 ON INSULIN . [id number] Start: 01-13-2021 Nail 11 X 170mm 130deg Fem Short Hilaria Ti Sterl Tfna - [id number] Start: 04-07-2021 Screw 105mm Fen Helical Ti Sterl Tfna - [id number], [id number] FDA Start: 04-07-2021 Screw 5 X 36mm T i Locking T25 Strdrv Im Nail - [id number] Start: 04-07-2021 by Miscellaneous route 4 (four) times a day E11.65 on insulin . [id number] Start: 08-03-2021 End: 09-02-2021 Use as directed QID. E11.65 on QID insulin regimen . [id number] Start: 08-03-2021 Use as directed 4 times daily . [id number] Start: 08-03-2021 Accu-Chek Elli Plus In Vitro Strip TEST TWICE DAILY. Refills: 0 DO Active Lancets Ultra Th in use to check glucose bid Refills: 0 DO Active USE TO CHECK BG 3X DAILY. DX CODE E11.9 ON INSULIN . [id number] Start: 01-10-2022 USE DIRECTED TO CHECK BLOOD SUGAR THREE TIMES DAILY [id number] Start: 02-06-2023 USE DIRECTED 4 TIMES A DAY E11.65 ON INSULIN REGIMEN . [id number] Start: 05-22-2022 Check blood gluc ose 4 times daily . [id number] Start: 11-01-2023 Use to check 2 x daily. DX code E11.65 . [id number] Start: 12-19-2023 by Miscellaneous route Use to check 2 x daily. DX code E11.65 . [id number] End: 12-19-2023 Use to check BG 3 x daily. DX code E11.65 inulin dependent DM (Accu-check Guide strips.) . [id number] Start: 01-04-2024 by Miscellaneous route Use to check BG 3 x daily. DX code E11.65 inulin dependent DM Accu-check Guide strips. . [id number] End: 01-04-2024 Use as directed to inject insulin 5 times per day . [id number] Start: 09-11-2024 Functional Status Date Assessment Result Facility NEGATED: Highlighted row Functional performance Functional status health issues are not documented Disease [facility] Work Phone: Mental Status Date Assessment Result Facility 04-10-2025 Cognitive function Level Of Cons ciousness Awake;Alert;Appropriate ;Follows Commands [facility] Work Phone: NEGATED: Highlighted row Cognitive function [Interpretation] Cognitive status health issues are not documented Disease [facility] Work Phone: Clinical Notes 02-01-2010 to 04-10-2025 BHUMIKA Lin, DPM - 01/02/2025 3:22 PM Jeanette Hankins MA - 12/05/2024 12:45 PM Nuha Mae MD - 12/05/2024 12:45 PM Radha Robertson RN - 11/21/2024 3:57 PM ESTPatient Instructions Note Date & Type Note Facility 04-10-2025 Radiology Diagnostic study note [facility] Imaging Services [address] [place] [address] [id number] Ankle min 3 Views MR#: [id number] Acct: [id number] Name: STEVO ELIZALDE Rep #: [id number] : 1950 M 75 From: Bradford Mcarthur MD PCP: PHYLLIS MAE Status: REG ER Study:Ankle min 3 Views Date of Exam: Exam# [id number] Ordering Dr: Rakel Willard PROCEDURE: ANKLE MIN 3 VIEWS 04/10/2025 REASON FOR EXAM: PAIN, FALL TECHNIQUE: 3 views of the right ankle COMPARISON: None. RAD/Ankle min 3 Views IMPRESSION: An oblique intra-articular fracture of the distal right fibula is seen, mildly displaced, and also involving a portion of the lateral malleolus. Minimal degenerative changes of the ankle joint are otherwise noted. Mild posterior and inferior calcaneal spurring is seen. Reading Location: [id number] CC: PHYLLIS MAE; ALLAN Marquez ~ Sat Instructor: Signed [facility] 04-10-2025 Radiology Diagnostic study note [facility] Imaging Services [address] [place] [address] Knee 3 Views MR#: [id number] Acct: [id number] Name: STEVO ELIZALDE Rep #: [id number] : 1950 M 75 From: Pratibha Pope MD PCP: PHYLLIS MAE Status: REG ER Study:Knee 3 Views Date of Exam: 5 Exam# [id number] Ordering Dr: Rakel Willard PROCEDURE: KNEE 3 VIEWS 04/10/2025 REASON FOR EXAM: PAIN, FALL TECHNIQUE: Four views of the right knee were performed. COMPARISON: None. FINDINGS: There is no evidence of fracture or dislocation. The patellofemoral joint and the medial and lateral joint space compartments of the knee are maintained. There is no knee joint effusion. There is enthesopathy of the patella. There is chondrocalcinosis of the medial and lateral menisci. There are vascular calcifications in the distalthigh. RAD/Knee 3 Views IMPRESSION: 1. No evidence of acute injury. 2. Chondrocalcinosis consistent with CPPD. 3. Other findings as noted. Reading Location: [place] [address] CC: PHYLLIS MAE; ALLAN Marquez ~ Sat Instructor: Signed [facility] Work Phone: 01-02-2025 Note Established Patient Visit BHUMIKA Lin DPM Patient Name: Stevo Elizalde. . Date of : 1950, 74 y.o.. Gender: male. Subjective: Patient is a pleasant 74-year-old male who presents to clinic today for high risk nail care . Patient stopped smoking because he moved into an assisted living that does not allow it. He is doing quite well with this and is only been non-smoking for 3 days. Patient relates that nails are thickened elongated and tender for him to cut. They are painful in his shoes when they are elongated. Patient has been using his lotion incision quite well for him. He would like some more as he is running out. He denies any current fever, chills, nausea, vomit, chest pain calf pain or shortness of breath. Patient has no other pedal complaints at this time peer Physical Examination: BP (!) 95/50 (BP Location: Left arm, Patient Position: Sitting, BP Cuff Size: Adult) Pulse 75 Temp 97 degrees F (36.1 degrees C) (Temporal) Resp 16 Ht 5' 6" Wt 64.4 kg (142 lb) SpO2 97% BMI 22.92 kg/m General Appearance: Alert, cooperative, no distress, appears stated age. Podiatric Exam Vascular: DP and PT pulses are nonpalpable. CFT is brisk to exposed digits. Absent hair growth the bilateral feet. Skin temperature is warm to cool from proximal tibial tuberosity to distal digits. Neurological: Epicritic and protopathic sensation intact to bilateral lower extremities. Dermatologic: Skin is diffusely xerotic and flaky, substantially improved. Patient does have superficial abrasions noted to bilateral lower extremities from itching, improved. No erythema discharge or malodor. Nails 1-3 4 5 on the left and 1-3 4 5 on the right are elongated dystrophic with evidence of subungual debris. Upon debridement these are quite brittle as well. Musculoskeletal: Bilateral foot and ankle overall rectus alignment. Muscle strength testing 5 out of 5 all tested muscular. Ankle range of motion limited with knee extended and slightly increased knee flexed. Diagnoses: 1. Onychodystrophy 2. Onychomycosis 3. PVD (peripheral vascular disease) 4. Diabetic foot (HCC) 5. Xerosis of skin Imaging: Reviewed noninvasive vascular studies in detail with patient today. Impression below. Segmental Doppler Lower Extremity Arterial Result Date: 03/21/2024 Patient Info Name: STEVO ELIZALDE Age: 74 years : 1950 Gender: Male Exam Date: 03/21/2024 3:08 PM Patient Status: Outpatient Enrollment Representative: Albert Sandra RVT Referring Physician: BUDDY LIN II ; Indications - non palpable pulses, tobacco use I73.9 - Peripheral vascular disease, unspecified Procedure Description 41408 Limited bilateral noninvasive physiologic studies of upper or lower extremity arteries with bidirectional Doppler/PVR waveform analysis at 1-2 levels. Conclusions * Right. * Right ankle brachial index is normal. CLEMENCIA is 0.94. * No evidence of small vessel disease at the transmetatarsal level in the right foot. * Right toe brachial index is normal. * Left. * Left ankle brachial index indicates mild peripheral artery disease noted at the iliofemoral level(s). CLEMENCIA is 0.78. * Mild small vessel disease at the transmetatarsal level in the left foot. * Left toe brachial index is abnormal. * Previous exam : right CLEMENCIA .99 ; left CLEMENCIA .87. Recommendations * Mild arterial insufficiency at rest on the left. Clinical correlation for signs/symptoms of PAD, further delineation with duplex or angiogram if warranted. . Doppler Rt Common Femoral: Triphasic Rt Popliteal: Triphasic Rt Posterior Tibial: Triphasic Rt Dorsalis Pedis: Triphasic Lt Common Femoral: Biphasic Lt Popliteal: Biphasic Lt Posterior Tibial: Biphasic Lt Dorsalis Pedis: Biphasic PVR Rt Thigh: Normal Rt Calf: Normal Rt Ankle: Normal Lt Thigh: Abnormal Lt Calf: Abnormal Lt Ankle: Abnormal Rt Digit: Normal Lt Digit: Abnormal Rt Brachial: 168 Rt Thigh: 156 Rt Calf: 156 Rt Posterior Tibial: 163 Rt Dorsalis Pedis: 159 Rt Digit: 155 0.90 0.90 0.94 0.91 0.89 Lt Brachial: 174 Lt Thigh: 128 Lt Calf: 122 Lt Posterior Tibial: 135 Lt Dorsalis Pedis: 131 Lt Digit: 111 0.74 0.70 0.78 0.75 0.64 Prior Study Date: 03/17/2022 Risk Factors Patient has a history of hypertension, hyperlipidemia, diabetes, tobacco use-current and PAD. COPD. CKD. . Report Signatures Finalized by Maximino Chaparro MD on 03/21/2024 04:04 PM Assessment/Plan: Patient was seen and evaluated. Discussed all clinical findings Procedure:After timeout consent was performed, and alcohol prep, sharply debrided and debulked in height and length 10 onychomycotic nails with a sharp around nail nippers consistent with a q8 modifier. New Rx for ammonium lactate Low medical complexity decision making based on her arterial disease separate than her nail care. Follow-up in 3 months for nail care This note was partially created using voice (more content not included)... [facility] 01-02-2025 History of Present illness Narrative Images from the original note were not included. Established Patient Visit BHUMIKA Lin DPM Patient Name: Stevo Elizalde. . Date of : 1950, 74 y.o.. Gender: male. Subjective: Patient is a pleasant 74-year-old male who presents to clinic today for high risk nail care . Patient stopped smoking because he moved into an assisted living that does not allow it. He is doing quite well with this and is only been non-smoking for 3 days. Patient relates that nails are thickened elongated and tender for him to cut. They are painful in his shoes when they are elongated. Patient has been using his lotion incision quite well for him. He would like some more as he is running out. He denies any current fever, chills, nausea, vomit, chest pain calf pain or shortness of breath. Patient has no other pedal complaints at this time peer Physical Examination: BP (!) 95/50 (BP Location: Left arm, Patient Position: Sitting, BP Cuff Size: Adult) Pulse 75 Temp 97 F (36.1 C) (Temporal) Resp 16 Ht 5' 6" Wt 64.4 kg (142 lb) SpO2 97% BMI 22.92 kg/m General Appearance: Alert, cooperative, no distress, appears stated age. Podiatric Exam Vascular: DP and PT pulses are nonpalpable. CFT is brisk to exposed digits. Absent hair growth the bilateral feet. Skin temperature is warm to cool from proximal tibial tuberosity to distal digits. Neurological: Epicritic and protopathic sensation intact to bilateral lower extremities. Dermatologic: Skin is diffusely xerotic and flaky, substantially improved. Patient does have superficial abrasions noted to bilateral lower extremities from itching, improved. No erythema discharge or malodor. Nails 1-3 4 5 on the left and 1-3 4 5 on the right are elongated dystrophic with evidence of subungual debris. Upon debridement these are quite brittle as well. Musculoskeletal: Bilateral foot and ankle overall rectus alignment. Muscle strength testing 5 out of 5 all tested muscular. Ankle range of motion limited with knee extended and slightly increased knee flexed. Diagnoses: 1. Onychodystrophy 2. Onychomycosis 3. PVD (peripheral vascular disease) 4. Diabetic foot (HCC) 5. Xerosis of skin Imaging: Reviewed noninvasive vascular studies in detail with patient today. Impression below. Segmental Doppler Lower Extremity Arterial Result Date: 03/21/2024 Patient Info Name: STEVO ELIZALDE Age: 74 years : 1950 Gender: Male Exam Date: 03/21/2024 3:08 PM Patient Status: Outpatient Enrollment Representative: Albert Sandra RVT Referring Physician: BUDDY LIN II ; Indications - non palpable pulses, tobacco use I73.9 - Peripheral vascular disease, unspecified Procedure Description 95341 Limited bilateral noninvasive physiologic studies of upper or lower extremity arteries with bidirectional Doppler/PVR waveform analysis at 1-2 levels. Conclusions * Right. * Right ankle brachial index is normal. CLEMENCIA is 0.94. * No evidence of small vessel disease at the transmetatarsal level in the right foot. * Right toe brachial index is normal. * Left. * Left ankle brachial index indicates mild peripheral artery disease noted at the iliofemoral level(s). CLEMENCIA is 0.78. * Mild small vessel disease at the transmetatarsal level in the left foot. * Left toe brachial index is abnormal. * Previous exam : right CLEMENCIA .99 ; left CLEMENCIA .87. Recommendations * Mild arterial insufficiency at rest on the left. Clinical correlation for signs/symptoms of PAD, further delineation with duplex or angiogram if warranted. . Doppler Rt Common Femoral: Triphasic Rt Popliteal: Triphasic Rt Posterior Tibial: Triphasic Rt Dorsalis Pedis: Triphasic Lt Common Femoral: Biphasic Lt Popliteal: Biphasic Lt Posterior Tibial: Biphasic Lt Dorsalis Pedis: Biphasic PVR Rt Thigh: Normal Rt Calf: Normal Rt Ankle: Normal Lt Thigh: Abnormal Lt Calf: Abnormal Lt Ankle: Abnormal Rt Digit: Normal Lt Digit: Abnormal Rt Brachial: 168 Rt Thigh: 156 Rt Calf: 156 Rt Posterior Tibial: 163 Rt Dorsalis Pedis: 159 Rt Digit: 155 0.90 0.90 0.94 0.91 0.89 Lt Brachial: 174 Lt Thigh: 128 Lt Calf: 122 Lt Posterior Tibial: 135 Lt Dorsalis Pedis: 131 Lt Digit: 111 0.74 0.70 0.78 0.75 0.64 Prior Study Date: 03/17/2022 Risk Factors Patient has a history of hypertension, hyperlipidemia, diabetes, tobacco use-current and PAD. COPD. CKD. . Report Signatures Finalized by Maximino Chaparro MD on 03/21/2024 04:04 PM Assessment/Plan: Patient was seen and evaluated. Discussed all clinical findings Procedure:After timeout consent was performed, and alcohol prep, sharply debrided and debulked in height and length 10 onychomycotic nails with a sharp around nail nippers consistent with a q8 modifier. New Rx for ammonium lactate Low medical complexity decision making based on her arterial disease separate than her nail care. Follow-up in 3 months for nail care This note was partially created using voice recognition software and is inherently subject to errors including those of syntax and "sound-alike" substitutions which may escape proofreading. In such instances, original meaning may be extrapolated by contextual derivation. BHUMIKA Lin DPM Podiatric Foot & Ankle Surgery documented in this encounter [facility] 12-05-2024 History of Present illness Narrative Pt needing refills for nub solution and spiriva Subjective Patient ID: Stevo Elizalde is a 74 y.o. male who presents for Follow-up (Follow up 1 month ). HPI LAB F/U . CURRENTLY IS GETTING PHYSICAL TX WHICH HELPS WITH BALANCE .SMOKES TOBACCO 1/2 PPD ,HASN'T STARTED THE NICOTINE PATCH YET. FORM FOR ASSISTED LIVING TO BE DONE. HYPOTENSIVE EPISODE TODAY, BUT IS ASYMPTOMATIC. NEEDS FLU VACCINE TODAY. Review of Systems Constitutional: Negative for chills and fever. HENT: Negative. Negative for congestion, postnasal drip and rhinorrhea. Eyes: Negative. Negative for visual disturbance. Respiratory: Negative for cough, shortness of breath and wheezing. Cardiovascular: Negative. Negative for chest pain, palpitations and leg swelling. Gastrointestinal: Negative. Negative for abdominal distention, abdominal pain, constipation, diarrhea, nausea and vomiting. Endocrine: Negative. Genitourinary: Negative for dysuria and urgency. Musculoskeletal: Negative. Negative for back pain. Skin: Negative. Negative for rash. Allergic/Immunologic: Negative for immunocompromised state. Neurological: Negative. Negative for dizziness, weakness, light-headedness and headaches. Psychiatric/Behavioral: Negative. Negative for agitation. Objective Physical Exam Constitutional: General: He is not in acute distress. HENT: Head: Normocephalic. Nose: Nose normal. Mouth/Throat: Mouth: Mucous membranes are moist. Eyes: Conjunctiva/sclera: Conjunctivae normal. Pupils: Pupils are equal, round, and reactive to light. Cardiovascular: Rate and Rhythm: Normal rate and regular rhythm. Pulses: Normal pulses. Heart sounds: Normal heart sounds. Pulmonary: Effort: No respiratory distress. Breath sounds: No wheezing. Chest: Chest wall: No tenderness. Abdominal: General: Abdomen is flat. Bowel sounds are normal. Palpations: Abdomen is soft. Tenderness: There is no abdominal tenderness. Musculoskeletal: General: No tenderness. Normal range of motion. Cervical back: Normal range of motion. Lymphadenopathy: Cervical: No cervical adenopathy. Skin: General: Skin is warm and dry. Findings: No rash. Neurological: General: No focal deficit present. Mental Status: He is alert and oriented to person, place, and time. Mental status is at baseline. Psychiatric: Mood and Affect: Mood normal. Behavior: Behavior normal. Assessment/Plan 1. Fatigue, unspecified type 2. Chronic obstructive pulmonary disease, unspecified COPD type (Multi) tiotropium (Spiriva) 18 mcg inhalation capsule 3. Healthcare maintenance calcium carbonate-vitamin D3 500 mg-5 mcg (200 unit) tablet multivitamin with minerals (ynyhrjlsksra-ftws-amgwg acid) tablet 4. Smoker nicotine (Nicoderm CQ) 14 mg/24 hr patch nicotine (Nicoderm CQ) 7 mg/24 hr patch 5. Type 2 diabetes mellitus with hyperglycemia, with long-term current use of insulin Comprehensive Metabolic Panel Hemoglobin A1C Comprehensive Metabolic Panel Hemoglobin A1C 6. Mixed hyperlipidemia Lipid Panel Lipid Panel 7. Anemia, unspecified type Magnesium Zinc Magnesium Zinc 8. Prostate cancer screening Prostate Specific Antigen, Screen Prostate Specific Antigen, Screen 9. High serum folic acid level Folate Folate 10. CRF (chronic renal failure), stage 3 (moderate) (Multi) Comprehensive Metabolic Panel Comprehensive Metabolic Panel 11. Need for influenza vaccination Flu vaccine, trivalent, preservative free, HIGH-DOSE, age 65y+ (Fluzone) 12. Centrilobular emphysema (Multi) albuterol 2.5 mg /3 mL (0.083 %) nebulizer solution ALL ASSESSED CHRONIC CONDITIONS ARE STABLE OR ADDRESSED. TEST RESULTS WERE DISCUSSED. Diabetes Mellitus addressed as follow: [address] HGA1C GOAL LESS THAN 7 LOSE WT EXERCISE DAILY, FALL PRECAUTION. FORM FOR ASSISTED LIVING IS DONE. WILL CONTINUE THE PHYSICAL TX . ADVISED TO QUIT SMOKING AND FINISH THE COURSE OF NICOTINE PATCH. MDM 1) COMPLEXITY: MORE THAN 1 STABLE CHRONIC CONDITION ADDRESSED 2)DATA: TESTS INTERPRETED AND OR ORDERED, TOOK INDEPENDENT HISTORY OR RECORDS REVIEWED 3)RISK: MODERATE RISK DUE TO NATURE OF MEDICAL CONDITIONS/COMORBIDITY OR MEDICATIONS ORDERED OR SURGICAL OR PROCEDURE REFERRAL, . 3 mon documented in this encounter [facility] Work Phone: 11-21-2024 History of Present illness Narrative PA requested for Dexcom G7 Sensor [place]: [id number] Status: Eligibility could not be verified for this patient - patient not found. Please review patient information and re-submit. documented in this encounter [facility] 11-05-2024 Evaluation + Plan note Associated Problem(s): COPD (chronic obstructive pulmonary disease) (Multi) Orders: tiotropium (Spiriva with HandiHaler) 18 mcg inhalation capsule; Place 1 capsule (18 mcg) into inhaler and inhale once daily. AT THE SAME TIME EVERY DAY VIA HANDIHALER [facility] Work Phone: 11-05-2024 Evaluation + Plan note Associated Problem(s): Essential tremor Orders: primidone (Mysoline) 50 mg tablet; Take 1 tablet (50 mg) by mouth 2 times a day. [facility] Work Phone: 11-05-2024 Evaluation + Plan note Associated Problem(s): DM2 (diabetes mellitus, type 2) (Multi) Orders: Lantus Solostar U-100 Insulin 100 unit/mL (3 mL) pen; Inject 5 Units under the skin once daily in the morning. Take as directed per insulin instructions. Comprehensive Metabolic Panel; Future Hemoglobin A1C; Future Albumin-Creatinine Ratio, Urine Random; Future [facility] Work Phone: 11-05-2024 Evaluation + Plan note Associated Problem(s): Hypertension associated with type 2 diabetes mellitus (Multi) Orders: Comprehensive Metabolic Panel; Future [facility] Work Phone: 11-05-2024 Evaluation + Plan note Associated Problem(s): Hyperlipemia [facility] Work Phone: 11-05-2024 Evaluation + Plan note Associated Problem(s): Thrombocytopenia (CMS-HCC) [facility] Work Phone: 11-05-2024 Evaluation + Plan note Associated Problem(s): Folate deficiency [facility] Work Phone: 11-05-2024 Evaluation + Plan note Associated Problem(s): CRF (chronic renal failure), stage 3 (moderate) (Multi) [facility] Work Phone: 11-05-2024 Evaluation + Plan note Associated Problem(s): Fatigue (Resolved 11/05/2024) Orders: Comprehensive Metabolic Panel; Future Magnesium; Future Zinc; Future TSH with reflex to Free T4 if abnormal; Future [facility] Work Phone: 11-05-2024 History of Present illness Narrative Subjective Reason for Visit: Stevo Elizalde is an 74 y.o. male here for a Medicare Wellness visit. Past Medical, Surgical, and Family History reviewed and updated in chart. Reviewed all medications by prescribing practitioner or clinical pharmacist (such as prescriptions, OTCs, herbal therapies and supplements) and documented in the medical record. HPI LAB F/U (DONE 3 MONTHS AGO), MED REFILL. GRIEF , HAD SUDDEN . PT LIVES WITH SON'S FAMILY AND IS PLANNING TO GO TO ASSISTED LIVING . FINISHED THE COURSE OF PHYSICAL TX, WHICH HELPED , WONDERS IF CAN HAVE MORE TX (WITH HAVING WEAKNESS) . IS ON LANTUS 16 UNITS DAILY WITH HYPOGLYCEMIC EPISODES (HAS TO HOLD LANTUS MOST OF THE TIMES) DRINKS ETOH Q HS (FAMILY IS TRYING TO WEAN HIM OFF). CHRONIC FATIGUE, CHRONIC SMOKER (SMOKES TOBACCO 1PPD), FAMILY WANTS HIM TO QUIT. PT IS HERE WITH DAUGHTER IN LAW. MEDICARE WELLNESS EXAM. Patient Care Team: Phyllis Mae MD as PCP - General Phyllis Mae MD as PCP - [employer] PCP Review of Systems Constitutional: Positive for fatigue. Negative for chills and fever. HENT: Negative. Negative for congestion, postnasal drip and rhinorrhea. Eyes: Negative. Negative for visual disturbance. Respiratory: Negative for cough, shortness of breath and wheezing. Cardiovascular: Negative. Negative for chest pain, palpitations and leg swelling. Gastrointestinal: Negative. Negative for abdominal distention, abdominal pain, constipation, diarrhea, nausea and vomiting. Endocrine: Negative. Genitourinary: Negative for dysuria and urgency. Musculoskeletal: Negative. Negative for back pain. Skin: Negative. Negative for rash. Allergic/Immunologic: Negative for immunocompromised state. Neurological: Negative. Negative for dizziness, weakness, light-headedness and headaches. Psychiatric/Behavioral: Negative for agitation. PER HPI Objective Vitals: BP 136/74 Pulse 74 Ht 1.676 m (5' 6") Wt 65.4 kg (144 lb 3.2 oz) SpO2 93% BMI 23.27 kg/m Physical Exam Constitutional: General: He is not in acute distress. HENT: Head: Normocephalic. Nose: Nose normal. Mouth/Throat: Mouth: Mucous membranes are moist. Eyes: Conjunctiva/sclera: Conjunctivae normal. Pupils: Pupils are equal, round, and reactive to light. Cardiovascular: Rate and Rhythm: Normal rate and regular rhythm. Pulses: Normal pulses. Heart sounds: Normal heart sounds. Pulmonary: Effort: No respiratory distress. Breath sounds: No wheezing. Chest: Chest wall: No tenderness. Abdominal: General: Abdomen is flat. Bowel sounds are normal. Palpations: Abdomen is soft. Tenderness: There is no abdominal tenderness. Musculoskeletal: General: No tenderness. Normal range of motion. Cervical back: Normal range of motion. Comments: 4/5 STRENGTH IN BOTH ARMS ,AND L LEG. 3/5 OF R LEG. Lymphadenopathy: Cervical: No cervical adenopathy. Skin: General: Skin is warm and dry. Findings: No rash. Neurological: General: No focal deficit present. Mental Status: He is alert. Mental status is at baseline. Psychiatric: Mood and Affect: Mood normal. Behavior: Behavior normal. Assessment & Plan Chronic obstructive pulmonary disease, unspecified COPD type (Multi) Orders: tiotropium (Spiriva with HandiHaler) 18 mcg inhalation capsule; Place 1 capsule (18 mcg) into inhaler and inhale once daily. AT THE SAME TIME EVERY DAY VIA HANDIHALER Routine general medical examination at health care facility Orders: 1 Year Follow Up In Primary Care - Wellness Exam; Future Essential tremor Orders: primidone (Mysoline) 50 mg tablet; Take 1 tablet (50 mg) by mouth 2 times a day. Type 2 diabetes mellitus with hyperglycemia, with long-term current use of insulin Orders: Lantus Solostar U-100 Insulin 100 unit/mL (3 mL) pen; Inject 5 Units under the skin once daily in the morning. Take as directed per insulin instructions. Comprehensive Metabolic Panel; Future Hemoglobin A1C; Future Albumin-Creatinine Ratio, Urine Random; Future Hypertension associated with type 2 diabetes mellitus (Multi) Orders: Comprehensive Metabolic Panel; Future Mixed hyperlipidemia Thrombocytopenia (CMS-HCC) Folate deficiency CRF (chronic renal failure), stage 3 (moderate) (Multi) Chronic fatigue Orders: Comprehensive Metabolic Panel; Future Magnesium; Future Zinc; Future TSH with reflex to Free T4 if abnormal; Future Anemia, unspecified type Orders: CBC and Auto Differential; Future Vitamin B12; Future Methylmalonic Acid; Future Folate; Future Iron and TIBC; Future Ferritin; Future Weakness of both arms Orders: Referral to Home Health; Future Weakness of both legs Orders: Referral to Home Health; Future Smoker Orders: nicotine (Nicoderm CQ) 14 mg/24 hr patch; Place 1 patch over 24 hours on the skin once every 24 hours for 14 days. nicotine (Nicoderm CQ) 7 mg/24 hr patch; Place 1 patch over 24 hours on the skin once every 24 hours. To START AFTER FINISHING THE 2 WEEKS OF 14 MG /DAY. Advanced Care planning discussed with patient,diagnosis , treatment and prognosis discussed with pt for 16 minutes,pt has capacity to make own decision, pt does not have an AD, advised to set one up and bring a copy for the chart. TEST RESULTS WERE DISCUSSED. ADVISED TO HAVE LOW FAT AND LOW CALORIE DIET , DAILY EXERCISE, FALL PRECAUTION. WILL DO PHYSICAL TX BY HOME HEALTH. Diabetes Mellitus/IFG addressed as follow: [address] HGA1C GOAL LESS THAN 7 EXERCISE DAILY. WILL REDUCE THE LANTUS TO 5 UNITS DAILY ,CONTINUE THE NOVOLOG. MDM 1) COMPLEXITY: 1 UNDIAGNOSED NEW PROBLEM WITH UNCERTAIN PROGNOSIS 2)DATA: TESTS INTERPRETED AND OR ORDERED, TOOK INDEPENDENT HISTORY OR RECORDS REVIEWED 3)RISK: MODERATE RISK DUE TO NATURE OF MEDICAL CONDITIONS/COMORBIDITY OR MEDICATIONS ORDERED OR SURGICAL OR PROCEDURE REFERRAL, . 1 mon Labs to [facility]. documented in this encounter [facility] Work Phone: 11-05-2024 Miscellaneous Notes Associated Problem(s): COPD (chronic obstructive pulmonary disease) (Multi) Orders: tiotropium (Spiriva with HandiHaler) 18 mcg inhalation capsule; Place 1 capsule (18 mcg) into inhaler and inhale once daily. AT THE SAME TIME EVERY DAY VIA HANDIHALER Associated Problem(s): Essential tremor Orders: primidone (Mysoline) 50 mg tablet; Take 1 tablet (50 mg) by mouth 2 times a day. Associated Problem(s): DM2 (diabetes mellitus, type 2) (Multi) Orders: Lantus Solostar U-100 Insulin 100 unit/mL (3 mL) pen; Inject 5 Units under the skin once daily in the morning. Take as directed per insulin instructions. Comprehensive Metabolic Panel; Future Hemoglobin A1C; Future Albumin-Creatinine Ratio, Urine Random; Future Associated Problem(s): Hypertension associated with type 2 diabetes mellitus (Multi) Orders: Comprehensive Metabolic Panel; Future Associated Problem(s): Hyperlipemia Associated Problem(s): Thrombocytopenia (CMS-HCC) Associated Problem(s): Folate deficiency Associated Problem(s): CRF (chronic renal failure), stage 3 (moderate) (Multi) Associated Problem(s): Fatigue (Resolved 11/05/2024) Orders: Comprehensive Metabolic Panel; Future Magnesium; Future Zinc; Future TSH with reflex to Free T4 if abnormal; Future documented in this encounter [facility] Work Phone: 10-03-2024 Instructions Jesus Adkins MA - 10/03/2024 2:43 PM EST How to contact your Care Team: Providers: Cameron Munguia III, RAQUEL Amaro PA Nurse: Lien Zheng To reschedule office appointments call Scheduling [phone] In case of an emergency please call 911. When in need of refills please call the phone number listed above. Please include medication name, pharmacy name and specify 30 or 90 day supply Please check with your pharmacy within 24 hours of your request for refill. You must follow up as directed to continue current refills. Thank you! documented in this encounter [facility] 10-03-2024 Note Assessment & Plan: 1. History of carotid endarterectomy Carotid Duplex 2. Stenosis of left carotid artery Carotid Duplex 3. Neurogenic claudication 4. PAD (peripheral artery disease) ([facility]) 5. Type 2 diabetes mellitus with stage 3b chronic kidney disease, with long-term current use of insulin ([facility]) 6. Tobacco use Plan: At the present time, Mr. Elizalde continues to do well with regards to his carotid disease. His carotid duplex scan today continues to show left ICA stenosis in the 50 to 69% range. The velocities are essentially unchanged compared to his previous study from 2 years ago. As result, I strongly feel that continued conservative course is indicated and follow-up in 2 years is appropriate. His right carotid site is stable and doing well from his previous surgery. He does have some issues with balance, but he is using a rollator and is doing well with his activity level. Overall and pleased with his clinical condition. We will keep you informed after his next visit in 2 years. If you have any questions, please feel free to contact me. Follow Up Ordered: Return in about 2 years (around 10/03/2026) for Recheck with testing. Subjective: Stevo Elizalde is a 74 y.o. male seen in the office today for follow up regarding carotid artery disease. Mr. Elizalde (birthday 1950) was seen in the office on October 03, 2024. It has been approximately 2-1/2 years since he was seen last. He states he is done fairly well over the past timeframe. He does use a walker/rollator for ambulation due to balance disturbances and strength issues. He does have significant diabetes mellitus with neuropathy, but denies any new evidence of strokes or TIAs or amaurosis or active carotid issues. He did undergo carotid duplex scan in the office today prior to seeing me. He continues to tolerate his medications satisfactorily. Unfortunately, he continues to smoke small amounts intermittently during the week. He denies any rest pain or night pain or gangrene or symptoms consistent with critical limb ischemia though his activity level is somewhat diminished secondary to balance and neuropathy issues. Histories: Past Medical History: Diagnosis Date Arthritis Carotid artery occlusion CKD (chronic kidney disease) Stage III Closed displaced intertrochanteric fracture of right femur ([facility]) 03/08/2021 Closed fracture of left orbital floor ([facility]) 06/10/2020 Closed fracture of multiple ribs of left side 06/10/2020 COPD (chronic obstructive pulmonary disease) ([facility]) Diabetes mellitus ([facility]) TYPE 2 Essential tremor Fall down stairs 04/14/2020 History of pneumonia Hyperlipidemia Hypertension Left carotid artery stenosis 03/30/2016 Leg cramps Leg heaviness MGUS (monoclonal gammopathy of unknown significance) Peptic ulcer disease PVD (peripheral vascular disease) ([facility]) Rhabdomyolysis 2009 Statin intolerance 04/01/2019 ??? Rhabdomyolysis in past. Stroke ([facility]) 2010 R side Past Surgical History: Procedure Laterality Date carotid angio 2010 HAND SURGERY Right 2009 IM NAILING FEMUR Right 04/07/2021 Procedure: RIGHT TFN; Surgeon: Dylon Galindo MD; Location: Main OR; Service: Orthopedic MT TEAEC W/PATCH GRF CAROTID VERTB SUBCLAV NECK INC Right 2010 SHOULDER OPEN ROTATOR CUFF REPAIR Left 2015 Family History Problem Relation Age of Onset Heart attack Father Diabetes Sister Heart attack Sister Stroke Sister Hypertension Sister Deep vein thrombosis Sister leg Ovarian cancer Sister Heart attack Brother Other (Old age) Mother Cancer Maternal Grandfather Cancer Paternal Grandmother Cancer Maternal Uncle Heart disease Sister Heart disease Sister Breast cancer Neg Hx Social History Tobacco Use Smoking status: Every Day Current packs/day: 1.00 Average packs/day: 1 pack/day for 69.9 years (69.9 ttl pk-yrs) Types: Cigarettes Start date: 1955 Smokeless tobacco: Never Vaping Use Vaping status: Never Used Substance Use Topics Alcohol use: Yes Comment: occasional Drug use: No Current Outpatient Medications Medication Sig Dispense Refill acetaminophen (TYLENOL) 325 MG tablet Take 2 (two) tablets (650 mg total) by mouth as needed for pain . ammonium lactate (AMLACTIN) 12 % cream Apply topically 2 (two) times a day . 385 g 0 aspirin 81 MG EC tablet Take 1 (one) tablet (81 mg total) by mouth daily . 90 tablet 3 atorvastatin (LIPITOR) 20 MG tablet Take 1 (one) tablet (20 mg total) by mouth daily . 90 tablet 3 calcium-vitamin D (OS-SHELDON +D) 500 mg-5 mcg (200 unit) per tablet Take 1 (one) tablet by mouth 2 (two) times a day with meals . clopidogreL (PLAVIX) 75 mg tablet Take 1 (one) tablet (75 mg total) by mouth daily . 90 tablet 3 diclofenac sodium (Voltaren Arthritis Pain) 1 % Gel Apply topically every 6 (six) hours as needed . famotidine (PEPCID) 20 MG tablet Take 1 (one) tablet (20 mg total) by mouth 2 (two) times a day . fe (more content not included)... [facility] 10-03-2024 History of Present illness Narrative Assessment & Plan: 1. History of carotid endarterectomy Carotid Duplex 2. Stenosis of left carotid artery Carotid Duplex 3. Neurogenic claudication 4. PAD (peripheral artery disease) (HCC) 5. Type 2 diabetes mellitus with stage 3b chronic kidney disease, with long-term current use of insulin ([facility]) 6. Tobacco use Plan: At the present time, Mr. Elizalde continues to do well with regards to his carotid disease. His carotid duplex scan today continues to show left ICA stenosis in the 50 to 69% range. The velocities are essentially unchanged compared to his previous study from 2 years ago. As result, I strongly feel that continued conservative course is indicated and follow-up in 2 years is appropriate. His right carotid site is stable and doing well from his previous surgery. He does have some issues with balance, but he is using a rollator and is doing well with his activity level. Overall and pleased with his clinical condition. We will keep you informed after his next visit in 2 years. If you have any questions, please feel free to contact me. Follow Up Ordered: Return in about 2 years (around 10/03/2026) for Recheck with testing. Subjective: Stevo Elizalde is a 74 y.o. male seen in the office today for follow up regarding carotid artery disease. Mr. Elizalde (birthday 1950) was seen in the office on October 03, 2024. It has been approximately 2-1/2 years since he was seen last. He states he is done fairly well over the past timeframe. He does use a walker/rollator for ambulation due to balance disturbances and strength issues. He does have significant diabetes mellitus with neuropathy, but denies any new evidence of strokes or TIAs or amaurosis or active carotid issues. He did undergo carotid duplex scan in the office today prior to seeing me. He continues to tolerate his medications satisfactorily. Unfortunately, he continues to smoke small amounts intermittently during the week. He denies any rest pain or night pain or gangrene or symptoms consistent with critical limb ischemia though his activity level is somewhat diminished secondary to balance and neuropathy issues. Histories: Past Medical History: Diagnosis Date Arthritis Carotid artery occlusion CKD (chronic kidney disease) Stage III Closed displaced intertrochanteric fracture of right femur ([facility]) 03/08/2021 Closed fracture of left orbital floor ([facility]) 06/10/2020 Closed fracture of multiple ribs of left side 06/10/2020 COPD (chronic obstructive pulmonary disease) ([facility]) Diabetes mellitus ([facility]) TYPE 2 Essential tremor Fall down stairs 04/14/2020 History of pneumonia Hyperlipidemia Hypertension Left carotid artery stenosis 03/30/2016 Leg cramps Leg heaviness MGUS (monoclonal gammopathy of unknown significance) Peptic ulcer disease PVD (peripheral vascular disease) (HCC) Rhabdomyolysis 2009 Statin intolerance 04/01/2019 ??? Rhabdomyolysis in past. Stroke (HCC) 2010 R side Past Surgical History: Procedure Laterality Date carotid angio 2010 HAND SURGERY Right 2009 IM NAILING FEMUR Right 04/07/2021 Procedure: RIGHT TFN; Surgeon: Dylon Galindo MD; Location: Main OR; Service: Orthopedic MT TEAEC W/PATCH GRF CAROTID VERTB SUBCLAV NECK INC Right 2010 SHOULDER OPEN ROTATOR CUFF REPAIR Left 2015 Family History Problem Relation Age of Onset Heart attack Father Diabetes Sister Heart attack Sister Stroke Sister Hypertension Sister Deep vein thrombosis Sister leg Ovarian cancer Sister Heart attack Brother Other (Old age) Mother Cancer Maternal Grandfather Cancer Paternal Grandmother Cancer Maternal Uncle Heart disease Sister Heart disease Sister Breast cancer Neg Hx Social History Tobacco Use Smoking status: Every Day Current packs/day: 1.00 Average packs/day: 1 pack/day for 69.9 years (69.9 ttl pk-yrs) Types: Cigarettes Start date: 1955 Smokeless tobacco: Never Vaping Use Vaping status: Never Used Substance Use Topics Alcohol use: Yes Comment: occasional Drug use: No Current Outpatient Medications Medication Sig Dispense Refill acetaminophen (TYLENOL) 325 MG tablet Take 2 (two) tablets (650 mg total) by mouth as needed for pain . ammonium lactate (AMLACTIN) 12 % cream Apply topically 2 (two) times a day . 385 g 0 aspirin 81 MG EC tablet Take 1 (one) tablet (81 mg total) by mouth daily . 90 tablet 3 atorvastatin (LIPITOR) 20 MG tablet Take 1 (one) tablet (20 mg total) by mouth daily . 90 tablet 3 calcium-vitamin D (OS-SHELDON +D) 500 mg-5 mcg (200 unit) per tablet Take 1 (one) tablet by mouth 2 (two) times a day with meals . clopidogreL (PLAVIX) 75 mg tablet Take 1 (one) tablet (75 mg total) by mouth daily . 90 tablet 3 diclofenac sodium (Voltaren Arthritis Pain) 1 % Gel Apply topically every 6 (six) hours as needed . famotidine (PEPCID) 20 MG tablet Take 1 (one) tablet (20 mg total) by mouth 2 (two) times a day . fenofibrate (TRICOR) 145 MG tablet Take 1 (one) tablet (145 mg total) by mouth daily Give with food . 90 tablet 3 fluticasone propion-salmeteroL (ADVAIR DISKUS) 500-50 mcg/dose diskus inhaler Inhale 1 (one) puff 2 (two) times a day . insulin aspart U-100 (NovoLOG Flexpen U-100 Insulin) 100 unit/mL (3 mL) InPn Take 5 units subcutaneous every day at meals, up to three times daily. Dx code E11.65. . 15 mL 1 isosorbide mononitrate (IMDUR) 30 MG 24 hr tablet Take 2 (two) tablets (60 mg total) by mouth daily . 180 tablet 3 Lantus Solostar U-100 Insulin 100 unit/mL (3 mL) InPn Inject 16 (sixteen) Units under the skin every morning . 15 mL 11 loratadine (CLARITIN) 10 mg tablet Take 1 (one) tablet (10 mg total) by mouth daily as needed for allergies . lovastatin (MEVACOR) 10 MG tablet Take 1 (one) tablet (10 mg total) by mouth daily . thmkmtev-typh-WW-calcium-mins 9 mg iron-400 mcg Tab Take 1 (one) tablet by mouth daily . nitroGLYCERIN (NITROSTAT) 0.[address] 1 (one) tablet (0.4 mg total) under the tongue every 5 (five) minutes as needed for chest pain . 25 tablet 3 PARoxetine (PAXIL) 20 MG tablet Take 1 (one) tablet (20 mg total) by mouth daily . primidone (MYSOLINE) 50 MG tablet Take 2 (two) tablets (100 mg total) by mouth nightly . 60 tablet 11 propranoloL (INDERAL LA) 120 MG 24 hr capsule Take 1 (one) capsule (120 mg total) by mouth daily . 90 capsule 3 sodium bicarbonate 650 MG tablet Take 2 (two) tablets (1,300 mg total) by mouth 2 (two) times a day . sucralfate (CARAFATE) 1 gram tablet Take 1 (one) tablet (1 g total) by mouth 4 (four) times a day before meals and nightly . tamsulosin (FLOMAX) 0.4 mg capsule Take 1 (one) capsule (0.4 mg total) by mouth daily . tiotropium (SPIRIVA) [address] 1 (one) capsule (18 mcg total) into inhaler and inhale daily . triamcinolone (KENALOG) 0.1 % cream Apply topically 2 (two) times a day . 30 g 0 Ventolin HFA 90 mcg/actuation inhaler USE 2 PUFFS EVERY 6 HOURS FOR SHORTNESS OF BREATH OR WHEEZING. blood sugar diagnostic (Accu-Chek Guide test strips) strips Use to check BG 3 x daily. DX code E11.65 inulin dependent DM (Accu-check Guide strips.) . 100 strip 11 blood-glucose meter kit 1 each by Other route Use as instructed to check BG 2x daily. DX code E11.65 . 1 each 0 blood-glucose meter Misc Use to check blood sugar as needed to calibrate CGM . 1 each 0 blood-glucose meter, wireless Kit by Miscellaneous route Use to check BG 2x daily. DXc ode E11.76 . blood-glucose sensor (Dexcom G7 Sensor) Jhon Use to check blood sugar four times daily . 3 each 11 lancets Misc Check blood glucose 4 times daily . 400 each 3 lancing device with lancets (Accu-Chek Soft Dev Lancets) Kit Use to check 2 x daily. DX code E11.65 . 1 kit 0 pantoprazole (PROTONIX) 40 MG tablet Take 1 (one) tablet (40 mg total) by mouth daily Start: 04/13/21. 30 tablet 0 pen needle, diabetic 31 gauge x 5/16" Ndle Use as directed to inject insulin 5 times per day . 150 each 11 No current facility-administered medications for this visit. Allergies Allergen Reactions Levofloxacin GI Intolerance Varenicline Swelling ROS Objective: Vitals: Vitals: 10/03/24 1442 10/03/24 1448 BP: (!) 146/76 (!) 155/79 BP Location: Left arm Right arm Patient Position: Sitting Sitting Pulse: 61 60 Weight: 64.4 kg (142 lb) Height: 5' 6" Physical Exam Vitals reviewed. Constitutional: General: He is awake. Appearance: Normal appearance. He is well-developed and normal weight. He is not diaphoretic. HENT: Head: Normocephalic. Right Ear: External ear normal. Left Ear: External ear normal. Eyes: General: Lids are normal. Neck: Vascular: Normal carotid pulses. No carotid bruit or JVD. Comments: Right neck incision is healed well. No signs of infection or cellulitis is noted. Cardiovascular: Rate and Rhythm: Normal rate and regular rhythm. Pulses: Intact distal pulses. Carotid pulses are 2+ on the right side and 2+ on the left side. Femoral pulses are 2+ on the right side and 1+ on the left side. Popliteal pulses are 2+ on the right side and 1+ on the left side. Dorsalis pedis pulses are 2+ on the right side and 1+ on the left side. Posterior tibial pulses are 2+ on the right side and 0 on the left side. Heart sounds: Normal heart sounds. No murmur heard. Comments: Good capillary filling is noted bilateral feet and toes. Pulmonary: Effort: Pulmonary effort is normal. Abdominal: General: Abdomen is protuberant. Musculoskeletal: Cervical back: Normal range of motion and neck supple. Thoracic back: Decreased range of motion. Lumbar back: Decreased range of motion. Right hip: Tenderness present. Decreased range of motion. Decreased strength. Right foot: Normal capillary refill. Normal pulse. Left foot: Normal capillary refill. Normal pulse. Skin: General: Skin is warm and dry. Capillary Refill: Capillary refill takes 2 to 3 seconds. Comments: Hair loss pattern changes are noted bilateral upper and lower extremities. Neurological: General: No focal deficit present. Mental Status: He is alert and oriented to person, place, and time. He is not disoriented. Sensory: Sensory deficit (Decreased sensations noted bilateral feet and toes consistent with diabetic neuropathy.) present. Motor: Weakness and tremor present. Coordination: Coordination abnormal (Due to significant resting tremor). Gait: Gait abnormal. Psychiatric: Attention and Perception: Attention and perception normal. Mood and Affect: Mood and affect normal. Speech: Speech normal. Behavior: Behavior normal. Behavior is cooperative. Thought Content: Thought content normal. Lab Review: The following labs were reviewed and within the chart Bilateral carotid artery duplex scan performed in the office on October 03, 2024 indicates a widely patent right internal carotid artery with no evidence of restenosis at the endarterectomy site. The left carotid artery shows 50 to 69% narrowing though there is significant calcific shadowing. The left ICA peak systolic velocity is 207 cm/s, and the left ICA peak end-diastolic velocity is 55 cm/s. Left ICA/CCA systolic ratio 3.0. This is essentially unchanged compared to his previous study from January 2022. Bilateral lower extremity arterial Doppler study with segmental pressures, Doppler waveforms and PVR waveforms performed in the office on March 21, 2024 indicate a normal resting right ankle CLEMENCIA of 0.94, and mild left leg arterial disease with an CLEMENCIA of 0.78. Left leg segmental pressures, Doppler waveforms and PVR waveforms suggest iliofemoral stenotic disease. This indicates mild left leg deterioration when compared to previous study from February 2022. Bilateral carotid artery duplex scan performed on February 22, 2022 indicates right carotid endarterectomy site is patent without restenosis. The left carotid artery shows 50 to 69% left ICA stenosis. The left ICA peak systolic velocity is 212 cm/s, left ICA peak end-diastolic velocity 65 cm/s. Left ICA/CCA systolic ratio is 2.9. documented in this encounter [facility] 10-03-2024 Note Established Patient Visit BHUMIKA Lin DPM Patient Name: Stevo Elizalde. . Date of : 1950, 74 y.o.. Gender: male. Subjective: Patient is a pleasant 74-year-old male who presents to clinic today for high risk nail care . Patient is a current half pack a day smoker. Patient relates that nails are thickened elongated and tender for him to cut. They are painful in his shoes when they are elongated. Patient has been using his lotion incision quite well for him. He would like some more as he is running out. He denies any current fever, chills, nausea, vomit, chest pain calf pain or shortness of breath. Patient has no other pedal complaints at this time peer Physical Examination: BP 115/72 (BP Location: Right arm, Patient Position: Sitting, BP Cuff Size: Adult) Pulse 63 Temp 98.7 degrees F (37.1 degrees C) (Infrared) General Appearance: Alert, cooperative, no distress, appears stated age. Podiatric Exam Vascular: DP and PT pulses are nonpalpable. CFT is brisk to exposed digits. Absent hair growth the bilateral feet. Skin temperature is warm to cool from proximal tibial tuberosity to distal digits. Neurological: Epicritic and protopathic sensation intact to bilateral lower extremities. Dermatologic: Skin is diffusely xerotic and flaky, substantially improved. Patient does have superficial abrasions noted to bilateral lower extremities from itching, improved. No erythema discharge or malodor. Nails 1-3 4 5 on the left and 1-3 4 5 on the right are elongated dystrophic with evidence of subungual debris. Upon debridement these are quite brittle as well. Musculoskeletal: Bilateral foot and ankle overall rectus alignment. Muscle strength testing 5 out of 5 all tested muscular. Ankle range of motion limited with knee extended and slightly increased knee flexed. Diagnoses: 1. Onychodystrophy 2. Onychomycosis 3. PVD (peripheral vascular disease) ([facility]) 4. Tobacco use 5. Diabetic foot ([facility]) 6. Xerosis of skin Imaging: Reviewed noninvasive vascular studies in detail with patient today. Impression below. Segmental Doppler Lower Extremity Arterial Result Date: 03/21/2024 Patient Info Name: STEVO ELIZALDE Age: 74 years : 1950 Gender: Male Exam Date: 03/21/2024 3:08 PM Patient Status: Outpatient Enrollment Representative: Albert Sandra RVT Referring Physician: BUDDY LIN II ; Indications - non palpable pulses, tobacco use I73.9 - Peripheral vascular disease, unspecified Procedure Description 36607 Limited bilateral noninvasive physiologic studies of upper or lower extremity arteries with bidirectional Doppler/PVR waveform analysis at 1-2 levels. Conclusions * Right. * Right ankle brachial index is normal. CLEMENCIA is 0.94. * No evidence of small vessel disease at the transmetatarsal level in the right foot. * Right toe brachial index is normal. * Left. * Left ankle brachial index indicates mild peripheral artery disease noted at the iliofemoral level(s). CLEMENCIA is 0.78. * Mild small vessel disease at the transmetatarsal level in the left foot. * Left toe brachial index is abnormal. * Previous exam : right CLEMENCIA .99 ; left CLEMENCIA .87. Recommendations * Mild arterial insufficiency at rest on the left. Clinical correlation for signs/symptoms of PAD, further delineation with duplex or angiogram if warranted. . Doppler Rt Common Femoral: Triphasic Rt Popliteal: Triphasic Rt Posterior Tibial: Triphasic Rt Dorsalis Pedis: Triphasic Lt Common Femoral: Biphasic Lt Popliteal: Biphasic Lt Posterior Tibial: Biphasic Lt Dorsalis Pedis: Biphasic PVR Rt Thigh: Normal Rt Calf: Normal Rt Ankle: Normal Lt Thigh: Abnormal Lt Calf: Abnormal Lt Ankle: Abnormal Rt Digit: Normal Lt Digit: Abnormal Rt Brachial: 168 Rt Thigh: 156 Rt Calf: 156 Rt Posterior Tibial: 163 Rt Dorsalis Pedis: 159 Rt Digit: 155 0.90 0.90 0.94 0.91 0.89 Lt Brachial: 174 Lt Thigh: 128 Lt Calf: 122 Lt Posterior Tibial: 135 Lt Dorsalis Pedis: 131 Lt Digit: 111 0.74 0.70 0.78 0.75 0.64 Prior Study Date: 03/17/2022 Risk Factors Patient has a history of hypertension, hyperlipidemia, diabetes, tobacco use-current and PAD. COPD. CKD. . Report Signatures Finalized by Maximino Chaparro MD on 03/21/2024 04:04 PM Assessment/Plan: Patient was seen and evaluated. Discussed all clinical findings Procedure:After timeout consent was performed, and alcohol prep, sharply debrided and debulked in height and length 10 onychomycotic nails with a sharp around nail nippers consistent with a q8 modifier. New Rx for ammonium lactate Low medical complexity decision making based on her arterial disease separate than her nail care. Follow-up in 3 months for nail care This note was partially created using voice recognition software and is inherently subject to errors including those of syntax and sound-alike substitutions which may escape proofreading. In such instances, [email or web address] (more content not included)... [facility] 10-03-2024 History of Present illness Narrative Images from the original note were not included. Established Patient Visit BHUMIKA Lin DPM Patient Name: Stevo Elizalde. . Date of : 1950, 74 y.o.. Gender: male. Subjective: Patient is a pleasant 74-year-old male who presents to clinic today for high risk nail care . Patient is a current half pack a day smoker. Patient relates that nails are thickened elongated and tender for him to cut. They are painful in his shoes when they are elongated. Patient has been using his lotion incision quite well for him. He would like some more as he is running out. He denies any current fever, chills, nausea, vomit, chest pain calf pain or shortness of breath. Patient has no other pedal complaints at this time peer Physical Examination: BP 115/72 (BP Location: Right arm, Patient Position: Sitting, BP Cuff Size: Adult) Pulse 63 Temp 98.7 F (37.1 C) (Infrared) General Appearance: Alert, cooperative, no distress, appears stated age. Podiatric Exam Vascular: DP and PT pulses are nonpalpable. CFT is brisk to exposed digits. Absent hair growth the bilateral feet. Skin temperature is warm to cool from proximal tibial tuberosity to distal digits. Neurological: Epicritic and protopathic sensation intact to bilateral lower extremities. Dermatologic: Skin is diffusely xerotic and flaky, substantially improved. Patient does have superficial abrasions noted to bilateral lower extremities from itching, improved. No erythema discharge or malodor. Nails 1-3 4 5 on the left and 1-3 4 5 on the right are elongated dystrophic with evidence of subungual debris. Upon debridement these are quite brittle as well. Musculoskeletal: Bilateral foot and ankle overall rectus alignment. Muscle strength testing 5 out of 5 all tested muscular. Ankle range of motion limited with knee extended and slightly increased knee flexed. Diagnoses: 1. Onychodystrophy 2. Onychomycosis 3. PVD (peripheral vascular disease) ([facility]) 4. Tobacco use 5. Diabetic foot ([facility]) 6. Xerosis of skin Imaging: Reviewed noninvasive vascular studies in detail with patient today. Impression below. Segmental Doppler Lower Extremity Arterial Result Date: 03/21/2024 Patient Info Name: STEVO ELIZALDE Age: 74 years : 1950 Gender: Male Exam Date: 03/21/2024 3:08 PM Patient Status: Outpatient Enrollment Representative: Albert Sandra RVT Referring Physician: BUDDY LIN II ; Indications - non palpable pulses, tobacco use I73.9 - Peripheral vascular disease, unspecified Procedure Description 28625 Limited bilateral noninvasive physiologic studies of upper or lower extremity arteries with bidirectional Doppler/PVR waveform analysis at 1-2 levels. Conclusions * Right. * Right ankle brachial index is normal. CLEMENCIA is 0.94. * No evidence of small vessel disease at the transmetatarsal level in the right foot. * Right toe brachial index is normal. * Left. * Left ankle brachial index indicates mild peripheral artery disease noted at the iliofemoral level(s). CLEMENCIA is 0.78. * Mild small vessel disease at the transmetatarsal level in the left foot. * Left toe brachial index is abnormal. * Previous exam : right CLEMENCIA .99 ; left CLEMENCIA .87. Recommendations * Mild arterial insufficiency at rest on the left. Clinical correlation for signs/symptoms of PAD, further delineation with duplex or angiogram if warranted. . Doppler Rt Common Femoral: Triphasic Rt Popliteal: Triphasic Rt Posterior Tibial: Triphasic Rt Dorsalis Pedis: Triphasic Lt Common Femoral: Biphasic Lt Popliteal: Biphasic Lt Posterior Tibial: Biphasic Lt Dorsalis Pedis: Biphasic PVR Rt Thigh: Normal Rt Calf: Normal Rt Ankle: Normal Lt Thigh: Abnormal Lt Calf: Abnormal Lt Ankle: Abnormal Rt Digit: Normal Lt Digit: Abnormal Rt Brachial: 168 Rt Thigh: 156 Rt Calf: 156 Rt Posterior Tibial: 163 Rt Dorsalis Pedis: 159 Rt Digit: 155 0.90 0.90 0.94 0.91 0.89 Lt Brachial: 174 Lt Thigh: 128 Lt Calf: 122 Lt Posterior Tibial: 135 Lt Dorsalis Pedis: 131 Lt Digit: 111 0.74 0.70 0.78 0.75 0.64 Prior Study Date: 03/17/2022 Risk Factors Patient has a history of hypertension, hyperlipidemia, diabetes, tobacco use-current and PAD. COPD. CKD. . Report Signatures Finalized by Maximino Chaparro MD on 03/21/2024 04:04 PM Assessment/Plan: Patient was seen and evaluated. Discussed all clinical findings Procedure:After timeout consent was performed, and alcohol prep, sharply debrided and debulked in height and length 10 onychomycotic nails with a sharp around nail nippers consistent with a q8 modifier. New Rx for ammonium lactate Low medical complexity decision making based on her arterial disease separate than her nail care. Follow-up in 3 months for nail care This note was partially created using voice recognition software and is inherently subject to errors including those of syntax and "sound-alike" substitutions which may escape proofreading. In such instances, original meaning may be extrapolated by contextual derivation. BHUMIKA Lin DPM Podiatric Foot & Ankle Surgery documented in this encounter [facility] 09-10-2024 Evaluation + Plan note Associated Problem(s): PVD (peripheral vascular disease) (HCC) Reviewed. [facility] 09-10-2024 Evaluation + Plan note Associated Problem(s): Essential hypertension Reviewed. [facility] 09-10-2024 Miscellaneous Notes Associated Problem(s): PVD (peripheral vascular disease) (HCC) Reviewed. Associated Problem(s): Essential hypertension Reviewed. documented in this encounter [facility] 09-09-2024 Note [facility] [address] (11) [facility] [address] [facility] [id number] Subjective: Stevo Elizalde is a 74 y.o. male seen in the office today for Chief Complaint Patient presents with Follow-up Yearly/ Ream - chest pain across his chest, last episode this morning. Happens a couple times a day. Patient with history of CVA who continues to smoke a pack of cigarettes a day. History of nonspecific chest pain still complains of that. Have not been seen in a couple years here. History of diabetes. Continues on dual antiplatelet therapy which he tolerates well. Continues to smoke as noted history of CVA. Laboratory reviewed. EKG unremarkable cardiac exam unremarkable. Previous testing ultrasound abdominal aorta noted. Plan will check Lexiscan nuclear stress test patient cannot walk on treadmill history of CVA uses a walker. Seen today with her [id number]. No changes see back in 6 months. No history of SD. Normal nuclear stress test in 2019. Overview of Problems Addressed: Problem Essential Hypertension Chest Pain Pvd (Peripheral Vascular Disease) ([facility]) Assessment & Plan: Reviewed Essential hypertension Reviewed. PVD (peripheral vascular disease) ([facility]) Reviewed. Histories: Past Medical History: Diagnosis Date Arthritis Carotid artery occlusion CKD (chronic kidney disease) Stage III Closed displaced intertrochanteric fracture of right femur ([facility]) 03/08/2021 Closed fracture of left orbital floor ([facility]) 06/10/2020 Closed fracture of multiple ribs of left side 06/10/2020 COPD (chronic obstructive pulmonary disease) ([facility]) Diabetes mellitus ([facility]) TYPE 2 Essential tremor Fall down stairs 04/14/2020 History of pneumonia Hyperlipidemia Hypertension Left carotid artery stenosis 03/30/2016 Leg cramps Leg heaviness MGUS (monoclonal gammopathy of unknown significance) Peptic ulcer disease PVD (peripheral vascular disease) ([facility]) Rhabdomyolysis 2009 Statin intolerance 04/01/2019 ??? Rhabdomyolysis in past. Stroke ([facility]) 2010 R side Past Surgical History: Procedure Laterality Date carotid angio 2010 HAND SURGERY Right 2009 IM NAILING FEMUR Right 04/07/2021 Procedure: RIGHT TFN; Surgeon: Dylon Galindo MD; Location: Main OR; Service: Orthopedic MT TEAEC W/PATCH GRF CAROTID VERTB SUBCLAV NECK INC Right 2009 SHOULDER OPEN ROTATOR CUFF REPAIR Left 2014 Family History Problem Relation Age of Onset Heart attack Father Diabetes Sister Heart attack Sister Stroke Sister Hypertension Sister Deep vein thrombosis Sister leg Ovarian cancer Sister Heart attack Brother Other (Old age) Mother Cancer Maternal Grandfather Cancer Paternal Grandmother Cancer Maternal Uncle Heart disease Sister Heart disease Sister Breast cancer Neg Hx Social History Tobacco Use Smoking status: Every Day Current packs/day: 1.00 Types: Cigarettes Smokeless tobacco: Never Vaping Use Vaping status: Never Used Substance Use Topics Alcohol use: Yes Comment: occasional Drug use: No Patient's Medications New Prescriptions No medications on file Previous Medications ACETAMINOPHEN (TYLENOL) 325 MG TABLET Take 2 (two) tablets (650 mg total) by mouth as needed for pain . AMMONIUM LACTATE (AMLACTIN) 12 % CREAM Apply topically 2 (two) times a day . BLOOD SUGAR DIAGNOSTIC (ACCU-CHEK GUIDE TEST STRIPS) STRIPS Use to check BG 3 x daily. DX code E11.65 inulin dependent DM (Accu-check Guide strips.) . BLOOD-GLUCOSE METER KIT 1 each by Other route Use as instructed to check BG 2x daily. DX code E11.65 . BLOOD-GLUCOSE METER MISC Use to check blood sugar as needed to calibrate CGM . BLOOD-GLUCOSE METER, WIRELESS KIT by Miscellaneous route Use to check BG 2x daily. DXc ode E11.76 . BLOOD-GLUCOSE SENSOR (DEXCOM G7 SENSOR) JHON Use to check blood sugar four times daily . CALCIUM-VITAMIN D (OS-SHELDON +D) 500 MG-5 MCG (200 UNIT) PER TABLET Take 1 (one) tablet by mouth 2 (two) times a day with meals . DICLOFENAC SODIUM (VOLTAREN ARTHRITIS PAIN) 1 % GEL Apply topically every 6 (six) hours as needed . FAMOTIDINE (PEPCID) 20 MG TABLET Take 1 (one) tablet (20 mg total) by mouth 2 (two) times a day . FLUTICASONE PROPION-SALMETEROL (ADVAIR DISKUS) 500-50 MCG/DOSE DISKUS INHALER Inhale 1 (one) puff 2 (two) times a day . INSULIN ASPART U-100 (NOVOLOG FLEXPEN U-100 INSULIN) 100 UNIT/ML (3 ML) INPN Take 5 units subcutaneous every day at meals, up to three times daily. Dx code E11.65. . LANCETS MIS Check blood glucose 4 times daily . LANCING DEVICE WITH LANCETS (ACCU-CHEK SOFT DEV LANCETS) KIT Use to check 2 x daily. DX code E11.65 . LANTUS SOLOSTAR U-100 INSULIN 100 UNIT/ML (3 ML) INPN Inject 16 (sixteen) Units under the skin every morning . LORATADINE (CLARITIN) 10 MG TABLET Take 1 (one) tablet (10 mg total) by mouth daily as needed for allergies . LOVASTATIN (MEVACOR) 10 MG TABLET (more content not included)... [facility] 09-09-2024 History of Present illness Narrative [facility] [address] ([address]) [facility] [address] [facility] [id number] Subjective: Stevo Elizalde is a 74 y.o. male seen in the office today for Chief Complaint Patient presents with Follow-up Yearly/ Ream - chest pain across his chest, last episode this morning. Happens a couple times a day. Patient with history of CVA who continues to smoke a pack of cigarettes a day. History of nonspecific chest pain still complains of that. Have not been seen in a couple years here. History of diabetes. Continues on dual antiplatelet therapy which he tolerates well. Continues to smoke as noted history of CVA. Laboratory reviewed. EKG unremarkable cardiac exam unremarkable. Previous testing ultrasound abdominal aorta noted. Plan will check Lexiscan nuclear stress test patient cannot walk on treadmill history of CVA uses a walker. Seen today with her [id number]. No changes see back in 6 months. No history of SD. Normal nuclear stress test in 2019. Overview of Problems Addressed: Problem Essential Hypertension Chest Pain Pvd (Peripheral Vascular Disease) (Former[facility]) Assessment & Plan: Reviewed Essential hypertension Reviewed. PVD (peripheral vascular disease) ([facility]) Reviewed. Histories: Past Medical History: Diagnosis Date Arthritis Carotid artery occlusion CKD (chronic kidney disease) Stage III Closed displaced intertrochanteric fracture of right femur ([facility]) 03/08/2021 Closed fracture of left orbital floor ([facility]) 06/10/2020 Closed fracture of multiple ribs of left side 06/10/2020 COPD (chronic obstructive pulmonary disease) ([facility]) Diabetes mellitus ([facility]) TYPE 2 Essential tremor Fall down stairs 04/14/2020 History of pneumonia Hyperlipidemia Hypertension Left carotid artery stenosis 03/30/2016 Leg cramps Leg heaviness MGUS (monoclonal gammopathy of unknown significance) Peptic ulcer disease PVD (peripheral vascular disease) ([facility]) Rhabdomyolysis 2010 Statin intolerance 04/01/2019 ??? Rhabdomyolysis in past. Stroke ([facility]) 2010 R side Past Surgical History: Procedure Laterality Date carotid angio 2010 HAND SURGERY Right 2009 IM NAILING FEMUR Right 04/07/2021 Procedure: RIGHT TFN; Surgeon: Dylon Galindo MD; Location: Main OR; Service: Orthopedic MT TEAEC W/PATCH GRF CAROTID VERTB SUBCLAV NECK INC Right 2009 SHOULDER OPEN ROTATOR CUFF REPAIR Left 2014 Family History Problem Relation Age of Onset Heart attack Father Diabetes Sister Heart attack Sister Stroke Sister Hypertension Sister Deep vein thrombosis Sister leg Ovarian cancer Sister Heart attack Brother Other (Old age) Mother Cancer Maternal Grandfather Cancer Paternal Grandmother Cancer Maternal Uncle Heart disease Sister Heart disease Sister Breast cancer Neg Hx Social History Tobacco Use Smoking status: Every Day Current packs/day: 1.00 Types: Cigarettes Smokeless tobacco: Never Vaping Use Vaping status: Never Used Substance Use Topics Alcohol use: Yes Comment: occasional Drug use: No Patient's Medications New Prescriptions No medications on file Previous Medications ACETAMINOPHEN (TYLENOL) 325 MG TABLET Take 2 (two) tablets (650 mg total) by mouth as needed for pain . AMMONIUM LACTATE (AMLACTIN) 12 % CREAM Apply topically 2 (two) times a day . BLOOD SUGAR DIAGNOSTIC (ACCU-CHEK GUIDE TEST STRIPS) STRIPS Use to check BG 3 x daily. DX code E11.65 inulin dependent DM (Accu-check Guide strips.) . BLOOD-GLUCOSE METER KIT 1 each by Other route Use as instructed to check BG 2x daily. DX code E11.65 . BLOOD-GLUCOSE METER [facility] Use to check blood sugar as needed to calibrate CGM . BLOOD-GLUCOSE METER, WIRELESS KIT by Miscellaneous route Use to check BG 2x daily. DXc ode E11.76 . BLOOD-GLUCOSE SENSOR (DEXCOM G7 SENSOR) JHON Use to check blood sugar four times daily . CALCIUM-VITAMIN D (OS-SHELDON +D) 500 MG-5 MCG (200 UNIT) PER TABLET Take 1 (one) tablet by mouth 2 (two) times a day with meals . DICLOFENAC SODIUM (VOLTAREN ARTHRITIS PAIN) 1 % GEL Apply topically every 6 (six) hours as needed . FAMOTIDINE (PEPCID) 20 MG TABLET Take 1 (one) tablet (20 mg total) by mouth 2 (two) times a day . FLUTICASONE PROPION-SALMETEROL (ADVAIR DISKUS) 500-50 MCG/DOSE DISKUS INHALER Inhale 1 (one) puff 2 (two) times a day . INSULIN ASPART U-100 (NOVOLOG FLEXPEN U-100 INSULIN) 100 UNIT/ML (3 ML) INPN Take 5 units subcutaneous every day at meals, up to three times daily. Dx code E11.65. . LANCETS [facility] Check blood glucose 4 times daily . LANCING DEVICE WITH LANCETS (ACCU-CHEK SOFT DEV LANCETS) KIT Use to check 2 x daily. DX code E11.65 . LANTUS SOLOSTAR U-100 INSULIN 100 UNIT/ML (3 ML) INPN Inject 16 (sixteen) Units under the skin every morning . LORATADINE (CLARITIN) 10 MG TABLET Take 1 (one) tablet (10 mg total) by mouth daily as needed for allergies . LOVASTATIN (MEVACOR) 10 MG TABLET Take 1 (one) tablet (10 mg total) by mouth daily . [id number]-ZQLD-EF-CALCIUM-MINS 9 MG IRON-400 MCG TAB Take 1 (one) tablet by mouth daily . NITROGLYCERIN (NITROSTAT) 0.[address] 1 (one) tablet (0.4 mg total) under the tongue every 5 (five) minutes as needed for chest pain . PANTOPRAZOLE (PROTONIX) 40 MG TABLET Take 1 (one) tablet (40 mg total) by mouth daily Start: 04/13/21. PAROXETINE (PAXIL) 20 MG TABLET Take 1 (one) tablet (20 mg total) by mouth daily . PRIMIDONE (MYSOLINE) 50 MG TABLET Take 2 (two) tablets (100 mg total) by mouth nightly . SODIUM BICARBONATE 650 MG TABLET Take 2 (two) tablets (1,300 mg total) by mouth 2 (two) times a day . SUCRALFATE (CARAFATE) 1 GRAM TABLET Take 1 (one) tablet (1 g total) by mouth 4 (four) times a day before meals and nightly . TAMSULOSIN (FLOMAX) 0.4 MG CAPSULE Take 1 (one) capsule (0.4 mg total) by mouth daily . TIOTROPIUM (SPIRIVA) [address] 1 (one) capsule (18 mcg total) into inhaler and inhale daily . TRIAMCINOLONE (KENALOG) 0.1 % CREAM Apply topically 2 (two) times a day . VENTOLIN HFA 90 MCG/ACTUATION INHALER USE 2 PUFFS EVERY 6 HOURS FOR SHORTNESS OF BREATH OR WHEEZING. Modified Medications Modified Medication Previous Medication ASPIRIN 81 MG EC TABLET aspirin 81 MG EC tablet Take 1 (one) tablet (81 mg total) by mouth daily . Take 1 (one) tablet (81 mg total) by mouth daily . ATORVASTATIN (LIPITOR) 20 MG TABLET atorvastatin (LIPITOR) 20 MG tablet Take 1 (one) tablet (20 mg total) by mouth daily . Take 1 (one) tablet (20 mg total) by mouth daily . CLOPIDOGREL (PLAVIX) 75 MG TABLET clopidogreL (PLAVIX) 75 mg tablet Take 1 (one) tablet (75 mg total) by mouth daily . Take 1 (one) tablet (75 mg total) by mouth daily . FENOFIBRATE (TRICOR) 145 MG TABLET fenofibrate (TRICOR) 145 MG tablet Take 1 (one) tablet (145 mg total) by mouth daily Give with food . Take 1 (one) tablet (145 mg total) by mouth daily Give with food . ISOSORBIDE MONONITRATE (IMDUR) 30 MG 24 HR TABLET isosorbide mononitrate (IMDUR) 30 MG 24 hr tablet Take 2 (two) tablets (60 mg total) by mouth daily . Take 2 (two) tablets (60 mg total) by mouth daily . PROPRANOLOL (INDERAL LA) 120 MG 24 HR CAPSULE propranoloL (INDERAL LA) 120 MG 24 hr capsule Take 1 (one) capsule (120 mg total) by mouth daily . Take 1 (one) capsule (120 mg total) by mouth daily . Discontinued Medications No medications on file Allergies Allergen Reactions Levofloxacin GI Intolerance Varenicline Swelling Review of Systems Constitutional: Negative for malaise/fatigue. Cardiovascular: Positive for chest pain. Negative for dyspnea on exertion, leg swelling and palpitations. Atypical features. Neurological: Negative for dizziness. Objective: Physical Exam Vitals and nursing note reviewed. Constitutional: General: He is not in acute distress. Appearance: He is well-developed. He is not diaphoretic. Comments: No acute distress HENT: Head: Normocephalic. Eyes: General: No scleral icterus. Comments: Pupils equal. Neck: Vascular: No JVD. Cardiovascular: Rate and Rhythm: Regular rhythm. Pulses: Radial pulses are 2+ on the right side and 2+ on the left side. Heart sounds: S1 normal and S2 normal. No murmur heard. No gallop. No S3 or S4 sounds. Comments: Feet warm bilateral. No murmur heard today Pulmonary: Effort: No respiratory distress. Breath sounds: Normal breath sounds. No stridor. No wheezing or rales. Abdominal: General: There is no distension. Palpations: Abdomen is soft. Tenderness: There is no abdominal tenderness. There is no guarding. Musculoskeletal: General: No tenderness. Comments: Walking with a walker. Skin: General: Skin is warm and dry. Neurological: Mental Status: He is alert and oriented to person, place, and time. Psychiatric: Behavior: Behavior normal. Vitals: Vitals: 09/09/24 1518 BP: 129/69 BP Location: Left arm Patient Position: Sitting BP Cuff Size: X-large Adult Pulse: (!) 59 SpO2: 96% Weight: 64.4 kg (142 lb) Height: 5' 6" Body mass index is 22.92 kg/m . Orders Placed This Encounter Procedures NM Myocardial Perfusion Multiple SPECT Standing Status: Future Standing Expiration Date: 09/09/2025 Scheduling Instructions: Do Not Schedule more than one Nuc Med procedure for a patient per day!!!! (Contact Nuc Med for exceptions) If it is after 12:00pm and procedure is for tomorrow, contact Nuclear Medicine for approval to schedule the procedure. Fax Order/Script to: [phone] for Central Scheduling scripts [phone] for [place] Scheduling scripts DO NOT USE R/O A DIAGNOSIS Order Specific Question: What type of stressing agent do you want to be used? Answer: Regadenoson (Lexiscan) Order Specific Question: Release to patient Answer: Immediate Order Specific Question: Administer radiopharmaceutical according to [facility] Nuclear Medicine policy? Answer: Yes ECG 12 Lead Order Specific Question: Release to patient Answer: Immediate Follow Up Ordered: Return in about 6 months (around 03/09/2025). Aquiles Herrera MD Review of Systems Constitutional: Negative for malaise/fatigue. Cardiovascular: Positive for chest pain. Negative for dyspnea on exertion, leg swelling and palpitations. Neurological: Negative for dizziness. documented in this encounter [facility] 09-09-2024 Instructions Fior Forbes CNP - 09/09/2024 2:19 PM EST Dose adjustments: Lantus-long acting insulin 16 units every morning Novolog-fast acting 5 units TID with meals Use as directed with Novolog insulin before meals and at bedtime. 151-200: 1 units fast acting insulin 201-250: 2 units fast acting insulin 251-300: 3 units fast acting insulin 301-350: 4 units fast acting insulin 351-400: 5 units fast acting insulin Call the office in 1 week with Blood sugar readings for dose adjustments to your insulin, if needed. The goal hemoglobin A1C is 7%-8%, closer to 7%, which is an average BG of 150 Please call the office sooner for episodes of hypoglycemia, BG < 70. Please remember to check your blood sugar 4x per day. Bring your blood sugar meter with you to appointments for review/download. It is important for us to prove you are checking your blood sugar, in order for us to renew/prescribe testing supplies. *Get updated labs done prior to your follow up appointment with us. If you do not get updated labs done, that are requested, please consider rescheduling your appointment until those are done * If you do not have labs or blood sugar readings for review at your visit please consider rescheduling your appointment as it is difficult for us to make changes to your diabetes regimen without sufficient information. documented in this encounter [facility] 09-09-2024 Note Patient ID: Stevo Elizalde is a 74 y.o. male 1950 Subjective: Stevo Elizalde presents for evaluation of Type 2 diabetes Diagnosed in 2004 Patient has taken Insulin for 10-11 years. Metformin stopped due to CRI. Mr. Elizalde is a 74 year-old male patient that presents today for follow-up in regards to his type 2 diabetes. Patient currently takes basal insulin and novolog sliding scale. They are not exactly sure if they're doing his insulin the correct way. He states that he checks blood sugars approximately once or twice daily. Glucometer was not available today. Hemoglobin A1c is 7.5%. Updated labs were reviewed below. He is now living with family as his . They are trying to get his medications sorted out and help to manage his medical stuff for him now Outpatient Medications Marked as Taking for the 09/09/24 encounter (Office Visit) with Fior Forbes CNP: acetaminophen (TYLENOL) 325 MG tablet, Take 2 (two) tablets (650 mg total) by mouth as needed for pain . ammonium lactate (AMLACTIN) 12 % cream, Apply topically 2 (two) times a day . aspirin 81 MG EC tablet, Take 1 (one) tablet (81 mg total) by mouth daily . atorvastatin (LIPITOR) 20 MG tablet, Take 1 (one) tablet (20 mg total) by mouth daily . blood sugar diagnostic (Accu-Chek Guide test strips) strips, Use to check BG 3 x daily. DX code E11.65 inulin dependent DM (Accu-check Guide strips.) . blood-glucose meter kit, 1 each by Other route Use as instructed to check BG 2x daily. DX code E11.65 . blood-glucose meter, wireless Kit, by Miscellaneous route Use to check BG 2x daily. DXc ode E11.76 . calcium-vitamin D (OS-SHELDON +D) 500 mg-5 mcg (200 unit) per tablet, Take 1 (one) tablet by mouth 2 (two) times a day with meals . clopidogreL (PLAVIX) 75 mg tablet, Take 1 (one) tablet (75 mg total) by mouth daily . diclofenac sodium (Voltaren Arthritis Pain) 1 % Gel, Apply topically every 6 (six) hours as needed . famotidine (PEPCID) 20 MG tablet, Take 1 (one) tablet (20 mg total) by mouth 2 (two) times a day . fenofibrate (TRICOR) 145 MG tablet, Take 1 (one) tablet (145 mg total) by mouth daily Give with food . fluticasone propion-salmeteroL (ADVAIR DISKUS) 500-50 mcg/dose diskus inhaler, Inhale 1 (one) puff 2 (two) times a day . lancets Misc, Check blood glucose 4 times daily . lancing device with lancets (Accu-Chek Soft Dev Lancets) Kit, Use to check 2 x daily. DX code E11.65 . loratadine (CLARITIN) 10 mg tablet, Take 1 (one) tablet (10 mg total) by mouth daily as needed for allergies . lovastatin (MEVACOR) 10 MG tablet, Take 1 (one) tablet (10 mg total) by mouth daily . mawsexgh-bohr-TQ-calcium-mins 9 mg iron-400 mcg Tab, Take 1 (one) tablet by mouth daily . nitroGLYCERIN (NITROSTAT) 0.4 MG SL tablet, Place 1 (one) tablet (0.4 mg total) under the tongue every 5 (five) minutes as needed for chest pain . pantoprazole (PROTONIX) 40 MG tablet, Take 1 (one) tablet (40 mg total) by mouth daily Start: 04/13/21. PARoxetine (PAXIL) 20 MG tablet, Take 1 (one) tablet (20 mg total) by mouth daily . primidone (MYSOLINE) 50 MG tablet, Take 2 (two) tablets (100 mg total) by mouth nightly . propranoloL (INDERAL LA) 120 MG 24 hr capsule, Take 1 (one) capsule (120 mg total) by mouth daily . sodium bicarbonate 650 MG tablet, Take 2 (two) tablets (1,300 mg total) by mouth 2 (two) times a day . sucralfate (CARAFATE) 1 gram tablet, Take 1 (one) tablet (1 g total) by mouth 4 (four) times a day before meals and nightly . tamsulosin (FLOMAX) 0.4 mg capsule, Take 1 (one) capsule (0.4 mg total) by mouth daily . tiotropium (SPIRIVA) 18 mcg inhalation capsule, Place 1 (one) capsule (18 mcg total) into inhaler and inhale daily . triamcinolone (KENALOG) 0.1 % cream, Apply topically 2 (two) times a day . Ventolin HFA 90 mcg/actuation inhaler, USE 2 PUFFS EVERY 6 HOURS FOR SHORTNESS OF BREATH OR WHEEZING. [DISCONTINUED] Lantus Solostar U-100 Insulin 100 unit/mL (3 mL) InPn, Inject 16 (sixteen) Units under the skin every morning . (Patient taking differently: Inject 16 (sixteen) Units under the skin every morning Only takes if BS isn't too low .) Review of Systems: Review of Systems Constitutional: Positive for fatigue. Negative for unexpected weight change. HENT: Negative for trouble swallowing. Eyes: Negative for visual disturbance. Respiratory: Positive for shortness of breath (chronic). Negative for cough. Cardiovascular: Positive for chest pain Negative for leg swelling. Gastrointestinal: Negative for abdominal pain, constipation, diarrhea, nausea and vomiting. Endocrine: Negative for polydipsia, polyphagia and polyuria. Genitourinary: Negative for frequency and urgency. Musculoskeletal: Positive for arthralgias. Negative for back pain. Skin: Negative for wound. No rash, reports generalized pruritis. Legs, arms, feet, etc Neurological: Positive for tremors (per baseline), weakness and nu (more content not included)... [facility] 09-09-2024 History of Present illness Narrative Images from the original note were not included. Patient ID: Stevo Elizalde is a 74 y.o. male 1950 Subjective: Stevo Elizalde presents for evaluation of Type 2 diabetes Diagnosed in 2004 Patient has taken Insulin for 10-11 years. Metformin stopped due to CRI. Mr. Elizalde is a 74 year-old male patient that presents today for follow-up in regards to his type 2 diabetes. Patient currently takes basal insulin and novolog sliding scale. They are not exactly sure if they're doing his insulin the correct way. He states that he checks blood sugars approximately once or twice daily. Glucometer was not available today. Hemoglobin A1c is 7.5%. Updated labs were reviewed below. He is now living with family as his . They are trying to get his medications sorted out and help to manage his medical stuff for him now Outpatient Medications Marked as Taking for the 09/09/24 encounter (Office Visit) with Fior Forbes CNP: acetaminophen (TYLENOL) 325 MG tablet, Take 2 (two) tablets (650 mg total) by mouth as needed for pain . ammonium lactate (AMLACTIN) 12 % cream, Apply topically 2 (two) times a day . aspirin 81 MG EC tablet, Take 1 (one) tablet (81 mg total) by mouth daily . atorvastatin (LIPITOR) 20 MG tablet, Take 1 (one) tablet (20 mg total) by mouth daily . blood sugar diagnostic (Accu-Chek Guide test strips) strips, Use to check BG 3 x daily. DX code E11.65 inulin dependent DM (Accu-check Guide strips.) . blood-glucose meter kit, 1 each by Other route Use as instructed to check BG 2x daily. DX code E11.65 . blood-glucose meter, wireless Kit, by Miscellaneous route Use to check BG 2x daily. DX ode E11.76 . calcium-vitamin D (OS-SHELDON +D) 500 mg-5 mcg (200 unit) per tablet, Take 1 (one) tablet by mouth 2 (two) times a day with meals . clopidogreL (PLAVIX) 75 mg tablet, Take 1 (one) tablet (75 mg total) by mouth daily . diclofenac sodium (Voltaren Arthritis Pain) 1 % Gel, Apply topically every 6 (six) hours as needed . famotidine (PEPCID) 20 MG tablet, Take 1 (one) tablet (20 mg total) by mouth 2 (two) times a day . fenofibrate (TRICOR) 145 MG tablet, Take 1 (one) tablet (145 mg total) by mouth daily Give with food . fluticasone propion-salmeteroL (ADVAIR DISKUS) 500-50 mcg/dose diskus inhaler, Inhale 1 (one) puff 2 (two) times a day . lancets [facility], Check blood glucose 4 times daily . lancing device with lancets (Accu-Chek Soft Dev Lancets) Kit, Use to check 2 x daily. DX code E11.65 . loratadine (CLARITIN) 10 mg tablet, Take 1 (one) tablet (10 mg total) by mouth daily as needed for allergies . lovastatin (MEVACOR) 10 MG tablet, Take 1 (one) tablet (10 mg total) by mouth daily . wzmwumtw-tyur-AY-calcium-mins 9 mg iron-400 mcg Tab, Take 1 (one) tablet by mouth daily . nitroGLYCERIN (NITROSTAT) 0.4 MG SL tablet, Place 1 (one) tablet (0.4 mg total) under the tongue every 5 (five) minutes as needed for chest pain . pantoprazole (PROTONIX) 40 MG tablet, Take 1 (one) tablet (40 mg total) by mouth daily Start: 04/13/21. PARoxetine (PAXIL) 20 MG tablet, Take 1 (one) tablet (20 mg total) by mouth daily . primidone (MYSOLINE) 50 MG tablet, Take 2 (two) tablets (100 mg total) by mouth nightly . propranoloL (INDERAL LA) 120 MG 24 hr capsule, Take 1 (one) capsule (120 mg total) by mouth daily . sodium bicarbonate 650 MG tablet, Take 2 (two) tablets (1,300 mg total) by mouth 2 (two) times a day . sucralfate (CARAFATE) 1 gram tablet, Take 1 (one) tablet (1 g total) by mouth 4 (four) times a day before meals and nightly . tamsulosin (FLOMAX) 0.4 mg capsule, Take 1 (one) capsule (0.4 mg total) by mouth daily . tiotropium (SPIRIVA) [address] m[address] inhalation capsule, Place 1 (one) capsule (18 mcg total) into inhaler and inhale daily . triamcinolone (KENALOG) 0.1 % cream, Apply topically 2 (two) times a day . Ventolin HFA 90 mcg/actuation inhaler, USE 2 PUFFS EVERY 6 HOURS FOR SHORTNESS OF BREATH OR WHEEZING. [DISCONTINUED] Lantus Solostar U-100 Insulin 100 unit/mL (3 mL) InPn, Inject 16 (sixteen) Units under the skin every morning . (Patient taking differently: Inject 16 (sixteen) Units under the skin every morning Only takes if BS isn't too low .) Review of Systems: Review of Systems Constitutional: Positive for fatigue. Negative for unexpected weight change. HENT: Negative for trouble swallowing. Eyes: Negative for visual disturbance. Respiratory: Positive for shortness of breath (chronic). Negative for cough. Cardiovascular: Positive for chest pain Negative for leg swelling. Gastrointestinal: Negative for abdominal pain, constipation, diarrhea, nausea and vomiting. Endocrine: Negative for polydipsia, polyphagia and polyuria. Genitourinary: Negative for frequency and urgency. Musculoskeletal: Positive for arthralgias. Negative for back pain. Skin: Negative for wound. No rash, reports generalized pruritis. Legs, arms, feet, etc Neurological: Positive for tremors (per baseline), weakness and numbness. Negative for headaches. Psychiatric/Behavioral: Negative for agitation and sleep disturbance. The patient is not nervous/anxious. The following portions of the patient's history were reviewed and updated as appropriate: allergies, current medications, past family history, past medical history, past social history, past surgical history and problem list. Objective: BP 129/69 (BP Location: Right arm, Patient Position: Sitting, BP Cuff Size: Adult) Pulse (!) 59 Wt 64.4 kg (142 lb) BMI 22.92 kg/m Wt Readings from Last 3 Encounters: 09/09/24 64.4 kg (142 lb) 05/07/24 67 kg (147 lb 12.8 oz) 10/18/23 67.4 kg (148 lb 9.6 oz) Physical Exam: General: alert, appears stated age and cooperative Eyes: conjunctivae/corneas clear. PERRL, EOM's intact. Neck: no adenopathy, supple, symmetrical, trachea midline. Thyroid: No thyromegaly appreciated Lung: clear to auscultation bilaterally Heart: regular rate and rhythm, S1, S2 normal, no murmur, click, rub or gallop Extremities: extremities normal, atraumatic, no cyanosis or edema Feet: Dry skin, wound to right great toe, below the nail bed. Purulent drainage noted. Bilateral Feet: warm, good capillary refill and normal DP. Monofilament exam Normal , bilateral lower extremities. Neuro: normal without focal findings, mental status, speech normal, alert and oriented x3 and CHERYL Laboratory Review: BP 129/69 (BP Location: Right arm, Patient Position: Sitting, BP Cuff Size: Adult) Pulse (!) 59 Wt 64.4 kg (142 lb) BMI 22.92 kg/m 09/04/2024 Hemoglobin A1C 7.5% Creatinine 1.81 GFR 39 AST 24 ALT 25 TSH 1.780 FT4 0.89 WBC 5.6 Hemoglobin 12.1 hematocrit 35 platelets 220 03/08/24 *labs reviewed 09/09/24 Hgb A1c: 9.1% Creat: 1.33; eGFR: 56 AST: 16; ALT: 12 K: 4.9 Tchol: 161; Tri ; HDL: 34 ; LDL: 68 TSH: 1.99 ; FreeT4: 1.1 Microalbumin/creatinine Ratio: 423 10/11/2023 Hemoglobin A1c 8.6% Creatinine 1.85 GFR 38 AST 14 ALT 27 10/04/22 *labs reviewed 09/09/24 Hgb A1c: 7.9% Creat: 1.91; eGFR: 37 AST: 20; ALT: 28 K: 4.6 CBC: WBC:7.93; Hgb: 11.7; Hct: 33.7; Plt: 262 Tchol: 178; Tri ; HDL: 46 ; LDL: 59 TSH: 2.97 ; FreeT4: 0.8 Microalbumin/creatinine Ratio: 05/12/2022 Hemoglobin A1c 6.9% Creatinine 1.82, estimated GFR 39, K4.6 AST 21, ALT 25 12/14/2021 Hemoglobin A1c 7.2% Creatinine 1.62, estimated GFR 42, K4.3 AST 20, ALT 30 T cholesterol 216, TG 247, HDL 39, LDL 128 TSH 2.51, free T4: 0.9 Microalbumin/creatinine ratio: 213 08/03/21 Hgb A1c: 5.9% 05/09/21 Creat: 1.57; eGFR: 43 K: 4.4 CBC: WBC:7356; Hgb: 8.6; Hct: 26.4.; Plt: 265 07/28/2020 Hemoglobin A1c: 5.9% Creat: 1.68, eGFR: 40 K: 4.6 AST: 20, ALT: 24 Tot chol: 178, T, HDL: 40, LDL: 75 WBC: 5.30, Hgb: 13.6, Hct: 39.6, Plt: 170 TSH: 1.07, Free T4: 1.0 Micro/creat: 380 Assessment/Plan: Dx: 1. Type 2 diabetes mellitus with stage 3b chronic kidney disease, with long-term current use of insulin (HCC) Lantus Solostar U-100 Insulin 100 unit/mL (3 mL) InPn insulin aspart U-100 (NovoLOG Flexpen U-100 Insulin) 100 unit/mL (3 mL) InPn blood-glucose sensor (Dexcom G7 Sensor) Jhon Comprehensive Metabolic Panel Hemoglobin A1c Microalbumin/Creatinine Ratio, UR Random T4, Free TSH blood-glucose meter Misc DISCONTINUED: blood-glucose meter,continuous (Dexcom G7 Data Deliverables Manager) Misc 2. Dyslipidemia Lipid Panel 3. Essential hypertension Type 2 diabetes, under good control Currently taking: Lantus insulin: 18 units at breakfast; 0 units at bedtime Novolog 5 units at meals + SSI at meals Current Hemoglobin A1C= Lab Results Component Value Date HGBA1C 7.5 (H) 09/04/2024 HGBA1C 9.1 (H) 03/08/2024 HGBA1C 8.6 (H) 10/11/2023 Weight trend: is stable Current diet: carb controlled Current exercise: none Current monitoring regimen: home blood tests - 1-2 times daily Home blood sugar records: See scanned readings Any episodes of hypoglycemia? On occasion not often NOTES: Retinopathy: Negative Exam within last 12 months: yes Refund Specialist/Technical Editor: [facility] Other Ophthalmologic Conditions: S/P Right cataract extraction with IOLI and S/P Left cataract extraction with IOLI Nephropathy: Positive -- Creatinine 1.81 GFR 39 09/04/[address] Clif Cheung every 6 months Lab Results Component Value Date CREATININE 1.81 (H) 09/04/2024 EXTEGFR 39 (L) 09/04/2024 EXTEGFRAFAME >=60 09/19/2018 Microalbumin/creatinine ratio: 423 03/08/2024 Is patient on MADELYN inhibitor or angiotensin II receptor danny? no Peripheral Neuropathy: Positive Reports bilateral numbness and tingling in feet, Stable from previous, currently taking Lyrica 75 mg 2 times daily Autonomic Neuropathy: Negative Hypoglycemia unawareness. Senses low BG at <80 mg/dl. Other: not using a sensor but would be a good candidate for one as he is taking QID insulin. Hyperlipidemia: Positive Currently taking: atorvastatin and fenofibrate. LFT's WNL Plan: CPM Hypertension: Positive. Currently taking: propanolol BP: 129/69 Cardiac: Positive on Isosorbide Experiencing chest pain No . Experiencing shortness of breath No History of CAD, PVD Follows routinely with: Dr. Herrera Respiratory: Positive History of COPD Vascular: Positive history of Left carotid endarterectomy History of CVA 2009 Feet: deferred today Follows with Podiatry: Yes Decision Science Analyst: Dr Patel saw 06/27/2024 History of foot ulceration: Yes. Right 4thrd toe. History of amputation: No Thyroid: Lab Results Component Value Date TSH 1.780 09/04/2024 Negative Other: Diagnosed with Parkinsons disease. Chronic tremor and difficulty ambulating. Plan: 1. Rx changes: See insulin dose adjustments below Lantus insulin 16 units every morning Novolog 5 units TID with meals Use as directed with Novolog insulin before meals and at bedtime. 151-200: 1 units fast acting insulin 201-250: 2 units fast acting insulin 251-300: 3 units fast acting insulin 301-350: 4 units fast acting insulin 351-400: 5 units fast acting insulin The patient was provided with a Dexcom G7 sample sensor, and we assisted him on how to put that on. I was able to download the Dexcom ramsey on his phone and set up an account for him to get that started today. I have asked him to call us to download his CGM data in about 1 week so that we can make adjustments to his insulin regimen if needed. We discussed the difference between Lantus and NovoLog insulin. We also briefly discussed how to treat a low blood sugar should that occur with the patient's family. 2. Education: Reviewed ABCs of diabetes management (respective goals in parentheses): A1C (7.0-8.0), blood pressure (<130/80), and cholesterol (LDL <100). 3. Compliance at present is estimated to be good. Efforts to improve compliance (if necessary) will be directed at increased exercise and regular blood sugar monitorin times daily. Also, will be directed at dietary modifications: Limit portion sizes and Limit starches, carbohydrates and concentrated sugar sources 4. Follow up: 4 months 5. Record blood sugar readings as instructed. Call if BG consistently <70 or >250. [phone] 6. Bring blood sugar meter to follow up appointment. Orders Placed This Encounter Procedures Comprehensive Metabolic Panel Hemoglobin A1c Lipid Panel Microalbumin/Creatinine Ratio, UR Random T4, Free TSH Electronically signed by Fior BAIRES 242:18 PM documented in this encounter [facility] 09-05-2024 Instructions Urszula Aragon RN - 09/05/2024 2:54 PM EST How to Contact your Care Team: Provider: Dr. Aquiles Herrera MD [facility]: Urszula Aragon RN NUCLEAR MEDICINE CARDIAC STRESS TEST THIS IS A 3-4 HOUR TEST Instructions: Appointment Time: , ____/____/____ at ____:____ Prep: NO CAFFEINE FOR 24 HOURS prior to your test. This includes drinks labeled decaffeinated. Nothing to eat 4 hours prior to your test. A small snack will be provided (crackers, granola bar, juice), or you may bring your own snack for after your stress test. You may drink fluids leading up to your test as long as they are caffeine-free. Decaffeinated drinks still contain some caffeine, please do not drink anything containing caffeine for 24 hours. NO SMOKING the day of your test. Wear comfortable shoes and clothing for exercising. Please wear short sleeves. No metal buttons or snaps. Procedure: Check-in/Registration. Please bring photo ID, insurance cards, and any physician orders. Test explained in detail and IV started. Stress test performed, nuclear medicine will be injected through your IV during the stress test. Stress test recovery period. Heart scan performed. The doctor will review the pictures of your heart and decide if more pictures are needed before you leave. If more are needed you will get another injection of nuclear medicine and this will take an additional hour. The total time for this test is 3-4 hours. There are medications that interfere with this test. You may be instructed to hold medications. If so that will be listed here: _ If you have any further questions please contact your care team or [phone]. documented in this encounter [facility] 07-25-2024 History of Present illness Narrative Subjective Patient ID: Stevo Elizalde is a 74 y.o. male who presents for Follow-up (F/U LABS; NO COMPLAINTS TODAY). HPI LAB F/U, chronic FATIGUE. WEAKNESS .STILL DRINKS THE ETOH ,BUT IS CUTTING DOWN (NOT DAILY PER ). 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 Review of Systems Constitutional: Positive for fatigue. Negative for chills and fever. HENT: Negative. Negative for congestion, postnasal drip and rhinorrhea. Eyes: Negative. Negative for visual disturbance. Respiratory: Negative for cough, shortness of breath and wheezing. Cardiovascular: Negative. Negative for chest pain, palpitations and leg swelling. Gastrointestinal: Negative. Negative for abdominal distention, abdominal pain, constipation, diarrhea, nausea and vomiting. Endocrine: Negative. Genitourinary: Negative for dysuria and urgency. Musculoskeletal: Negative for back pain. WEAKNESS Skin: Negative. Negative for rash. Allergic/Immunologic: Negative for immunocompromised state. Neurological: Negative. Negative for dizziness, weakness, light-headedness and headaches. Psychiatric/Behavioral: Negative. Negative for agitation. Objective Physical Exam Constitutional: General: He is not in acute distress. HENT: Head: Normocephalic. Nose: Nose normal. Mouth/Throat: Mouth: Mucous membranes are moist. Eyes: Conjunctiva/sclera: Conjunctivae normal. Pupils: Pupils are equal, round, and reactive to light. Cardiovascular: Rate and Rhythm: Normal rate and regular rhythm. Pulses: Normal pulses. Heart sounds: Normal heart sounds. Pulmonary: Effort: No respiratory distress. Breath sounds: No wheezing. Chest: Chest wall: No tenderness. Abdominal: General: Abdomen is flat. Bowel sounds are normal. Palpations: Abdomen is soft. Tenderness: There is no abdominal tenderness. Musculoskeletal: General: No tenderness. Normal range of motion. Cervical back: Normal range of motion. Comments: 3/5 STRENGTH IN ALL LIMBS Lymphadenopathy: Cervical: No cervical adenopathy. Skin: General: Skin is warm and dry. Findings: No rash. Neurological: General: No focal deficit present. Mental Status: He is alert. Mental status is at baseline. Psychiatric: Mood and Affect: Mood normal. Behavior: Behavior normal. Assessment/Plan 1. Thrombocytopenia (CMS-HCC) US abdomen limited liver CBC and Auto Differential Referral to Hematology and Oncology 2. Chronic obstructive pulmonary disease, unspecified (Multi) albuterol 2.5 mg /3 mL (0.083 %) nebulizer solution Referral to Home Health 3. Megaloblastic anemia 4. Folate deficiency folic acid (Folvite) 1 mg tablet 5. Fatigue, unspecified type Comprehensive Metabolic Panel Magnesium Zinc CBC and Auto Differential TSH with reflex to Free T4 if abnormal 6. CRF (chronic renal failure), stage 3 (moderate) (Multi) Comprehensive Metabolic Panel 7. Type 2 diabetes mellitus with hyperglycemia, with long-term current use of insulin (Multi) Comprehensive Metabolic Panel Hemoglobin A1C TEST RESULTS WERE DISCUSSED. ADVISED TO HAVE LOW FAT AND LOW CALORIE , HIGH PROTEIN DIET , FALL PRECAUTION. ADVISED TO CUT DOWN CAFFEINE, TO QUIT ETOH. EXPLAINED ETOH CAN MAKE THE THROMBOCYTOPENIA WORSE. PT HAS LIMITED MOBILITY DUE TO MEDICAL CONDITIONS , IS HOMEBOUND AND APPROPRIATE FOR HOME CARE. MDM 1) COMPLEXITY: 1 UNDIAGNOSED NEW PROBLEM WITH UNCERTAIN PROGNOSIS 2)DATA: TESTS INTERPRETED AND OR ORDERED, TOOK INDEPENDENT HISTORY OR RECORDS REVIEWED 3)RISK: MODERATE RISK DUE TO NATURE OF MEDICAL CONDITIONS/COMORBIDITY OR MEDICATIONS ORDERED OR SURGICAL OR PROCEDURE REFERRAL, . 2 WEEKS Pt's WANTS CENTER [facility]. LABS TO BE DONE BY HOME HEALTH. documented in this encounter [facility] Work Phone: 06-27-2024 Note Established Patient Visit BHUMIKA Lin DPM Patient Name: Stevo Elizalde. . Date of : 1950, 74 y.o.. Gender: male. Subjective: Patient is a pleasant 74-year-old male who presents to clinic today for high risk nail care . Patient is a current half pack a day smoker. Patient relates that nails are thickened elongated and tender for him to cut. They are painful in his shoes when they are elongated. He denies any current fever, chills, nausea, vomit, chest pain calf pain or shortness of breath. Patient has no other pedal complaints at this time peer Physical Examination: BP (!) 96/59 (BP Location: Left arm, Patient Position: Sitting, BP Cuff Size: Adult) Pulse 71 Temp 98.4 degrees F (36.9 degrees C) (Infrared) SpO2 94% General Appearance: Alert, cooperative, no distress, appears stated age. Podiatric Exam Vascular: DP and PT pulses are nonpalpable. CFT is brisk to exposed digits. Absent hair growth the bilateral feet. Skin temperature is warm to cool from proximal tibial tuberosity to distal digits. Neurological: Epicritic and protopathic sensation intact to bilateral lower extremities. Dermatologic: Skin is diffusely xerotic and flaky, substantially improved. Patient does have superficial abrasions noted to bilateral lower extremities from itching, improved. No erythema discharge or malodor. Nails 1-3 4 5 on the left and 1-3 4 5 on the right are elongated dystrophic with evidence of subungual debris. Upon debridement these are quite brittle as well. Musculoskeletal: Bilateral foot and ankle overall rectus alignment. Muscle strength testing 5 out of 5 all tested muscular. Ankle range of motion limited with knee extended and slightly increased knee flexed. Diagnoses: 1. Onychodystrophy 2. Onychomycosis 3. PVD (peripheral vascular disease) ([facility]) 4. Tobacco use 5. Diabetic foot ([facility]) 6. Toe pain, bilateral Imaging: Reviewed noninvasive vascular studies in detail with patient today. Impression below. Segmental Doppler Lower Extremity Arterial Result Date: 03/21/2024 Patient Info Name: STEVO ELIZALDE Age: 74 years : 1950 Gender: Male Exam Date: 03/21/2024 3:08 PM Patient Status: Outpatient Enrollment Representative: Albert Sandra RVT Referring Physician: BUDDY LIN II ; Indications - non palpable pulses, tobacco use I73.9 - Peripheral vascular disease, unspecified Procedure Description 68831 Limited bilateral noninvasive physiologic studies of upper or lower extremity arteries with bidirectional Doppler/PVR waveform analysis at 1-2 levels. Conclusions * Right. * Right ankle brachial index is normal. CLEMENCIA is 0.94. * No evidence of small vessel disease at the transmetatarsal level in the right foot. * Right toe brachial index is normal. * Left. * Left ankle brachial index indicates mild peripheral artery disease noted at the iliofemoral level(s). CLEMENCIA is 0.78. * Mild small vessel disease at the transmetatarsal level in the left foot. * Left toe brachial index is abnormal. * Previous exam : right CLEMENCIA .99 ; left CLEMENCIA .87. Recommendations * Mild arterial insufficiency at rest on the left. Clinical correlation for signs/symptoms of PAD, further delineation with duplex or angiogram if warranted. . Doppler Rt Common Femoral: Triphasic Rt Popliteal: Triphasic Rt Posterior Tibial: Triphasic Rt Dorsalis Pedis: Triphasic Lt Common Femoral: Biphasic Lt Popliteal: Biphasic Lt Posterior Tibial: Biphasic Lt Dorsalis Pedis: Biphasic PVR Rt Thigh: Normal Rt Calf: Normal Rt Ankle: Normal Lt Thigh: Abnormal Lt Calf: Abnormal Lt Ankle: Abnormal Rt Digit: Normal Lt Digit: Abnormal Rt Brachial: 168 Rt Thigh: 156 Rt Calf: 156 Rt Posterior Tibial: 163 Rt Dorsalis Pedis: 159 Rt Digit: 155 0.90 0.90 0.94 0.91 0.89 Lt Brachial: 174 Lt Thigh: 128 Lt Calf: 122 Lt Posterior Tibial: 135 Lt Dorsalis Pedis: 131 Lt Digit: 111 0.74 0.70 0.78 0.75 0.64 Prior Study Date: 03/17/2022 Risk Factors Patient has a history of hypertension, hyperlipidemia, diabetes, tobacco use-current and PAD. COPD. CKD. . Report Signatures Finalized by Maximino Chaparro MD on 03/21/2024 04:04 PM Assessment/Plan: Patient was seen and evaluated. Discussed all clinical findings Procedure:After timeout consent was performed, and alcohol prep, sharply debrided and debulked in height and length 10 onychomycotic nails with a sharp around nail nippers consistent with a q8 modifier. Low medical complexity decision making based on her arterial disease separate than her nail care. Follow-up in 3 months for nail care This note was partially created using voice recognition software and is inherently subject to errors including those of syntax and sound-alike substitutions which may escape proofreading. In such instances, original meaning may be extrapolated by contextual derivation. BHUMIKA Lin DPM Podiatric Foot & Ankle Surgery [facility] (more content not included)... [facility] 06-27-2024 History of Present illness Narrative Images from the original note were not included. Established Patient Visit BHUMIKA Lin DPM Patient Name: Stevo Elizalde. . Date of : 1950, 74 y.o.. Gender: male. Subjective: Patient is a pleasant 74-year-old male who presents to clinic today for high risk nail care . Patient is a current half pack a day smoker. Patient relates that nails are thickened elongated and tender for him to cut. They are painful in his shoes when they are elongated. He denies any current fever, chills, nausea, vomit, chest pain calf pain or shortness of breath. Patient has no other pedal complaints at this time peer Physical Examination: BP (!) 96/59 (BP Location: Left arm, Patient Position: Sitting, BP Cuff Size: Adult) Pulse 71 Temp 98.4 F (36.9 C) (Infrared) SpO2 94% General Appearance: Alert, cooperative, no distress, appears stated age. Podiatric Exam Vascular: DP and PT pulses are nonpalpable. CFT is brisk to exposed digits. Absent hair growth the bilateral feet. Skin temperature is warm to cool from proximal tibial tuberosity to distal digits. Neurological: Epicritic and protopathic sensation intact to bilateral lower extremities. Dermatologic: Skin is diffusely xerotic and flaky, substantially improved. Patient does have superficial abrasions noted to bilateral lower extremities from itching, improved. No erythema discharge or malodor. Nails 1-3 4 5 on the left and 1-3 4 5 on the right are elongated dystrophic with evidence of subungual debris. Upon debridement these are quite brittle as well. Musculoskeletal: Bilateral foot and ankle overall rectus alignment. Muscle strength testing 5 out of 5 all tested muscular. Ankle range of motion limited with knee extended and slightly increased knee flexed. Diagnoses: 1. Onychodystrophy 2. Onychomycosis 3. PVD (peripheral vascular disease) ([facility]) 4. Tobacco use 5. Diabetic foot (HCC) 6. Toe pain, bilateral Imaging: Reviewed noninvasive vascular studies in detail with patient today. Impression below. Segmental Doppler Lower Extremity Arterial Result Date: 03/21/2024 Patient Info Name: STEVO ELIZALDE Age: 74 years : 1950 Gender: Male Exam Date: 03/21/2024 3:08 PM Patient Status: Outpatient Enrollment Representative: Albert Sandra Forrest Referring Physician: BUDDY LIN II ; Indications - non palpable pulses, tobacco use I73.9 - Peripheral vascular disease, unspecified Procedure Description [id number] Limited bilateral noninvasive physiologic studies of upper or lower extremity arteries with bidirectional Doppler/PVR waveform analysis at 1-2 levels. Conclusions * Right. * Right ankle brachial index is normal. CLEMENCIA is 0.94. * No evidence of small vessel disease at the transmetatarsal level in the right foot. * Right toe brachial index is normal. * Left. * Left ankle brachial index indicates mild peripheral artery disease noted at the iliofemoral level(s). CLEMENCIA is 0.78. * Mild small vessel disease at the transmetatarsal level in the left foot. * Left toe brachial index is abnormal. * Previous exam : right CLEMENCIA .99 ; left CLEMENCIA .87. Recommendations * Mild arterial insufficiency at rest on the left. Clinical correlation for signs/symptoms of PAD, further delineation with duplex or angiogram if warranted. . Doppler Rt Common Femoral: Triphasic Rt Popliteal: Triphasic Rt Posterior Tibial: Triphasic Rt Dorsalis Pedis: Triphasic Lt Common Femoral: Biphasic Lt Popliteal: Biphasic Lt Posterior Tibial: Biphasic Lt Dorsalis Pedis: Biphasic PVR Rt Thigh: Normal Rt Calf: Normal Rt Ankle: Normal Lt Thigh: Abnormal Lt Calf: Abnormal Lt Ankle: Abnormal Rt Digit: Normal Lt Digit: Abnormal Rt Brachial: 168 Rt Thigh: 156 Rt Calf: 156 Rt Posterior Tibial: 163 Rt Dorsalis Pedis: 159 Rt Digit: 155 0.90 0.90 0.94 0.91 0.89 Lt Brachial: 174 Lt Thigh: 128 Lt Calf: 122 Lt Posterior Tibial: 135 Lt Dorsalis Pedis: 131 Lt Digit: 111 0.74 0.70 0.78 0.75 0.64 Prior Study Date: 03/17/2022 Risk Factors Patient has a history of hypertension, hyperlipidemia, diabetes, tobacco use-current and PAD. COPD. CKD. . Report Signatures Finalized by Maximino Chaparro MD on 03/21/2024 04:04 PM Assessment/Plan: Patient was seen and evaluated. Discussed all clinical findings Procedure:After timeout consent was performed, and alcohol prep, sharply debrided and debulked in height and length 10 onychomycotic nails with a sharp around nail nippers consistent with a q8 modifier. Low medical complexity decision making based on her arterial disease separate than her nail care. Follow-up in 3 months for nail care This note was partially created using voice recognition software and is inherently subject to errors including those of syntax and "sound-alike" substitutions which may escape proofreading. In such instances, original meaning may be extrapolated by contextual derivation. BHUMIKA Lin DPM Podiatric Foot & Ankle Surgery documented in this encounter [facility] 05-14-2024 Note Established Patient Visit BHUMIKA Lin DPM Patient Name: Stevo Elizalde. . Date of : 1950, 74 y.o.. Gender: male. Subjective: Patient is a pleasant 74-year-old male who presents to clinic today for concerns of right great toe infection. Patient was placed on doxycycline and has been on it for about a week. Patient continues to smoke about a half a pack a day. Patient relates that the drainage is improving but it is still quite tender to the area. Patient denies does not remember any trauma. Patient is a diabetic with last known hemoglobin A1c of 8.32 weeks ago. He denies any current fever, chills, nausea, vomit, chest pain calf pain or shortness of breath. Patient has no other pedal complaints at this time peer Physical Examination: BP 108/71 (BP Location: Left arm, Patient Position: Sitting, BP Cuff Size: Adult) Pulse 93 Temp 98.5 degrees F (36.9 degrees C) (Infrared) SpO2 92% General Appearance: Alert, cooperative, no distress, appears stated age. Podiatric Exam Vascular: DP and PT pulses are nonpalpable. CFT is brisk to exposed digits. Absent hair growth the bilateral feet. Skin temperature is warm to cool from proximal tibial tuberosity to distal digits. Neurological: Epicritic and protopathic sensation intact to bilateral lower extremities. Dermatologic: Skin is diffusely xerotic and flaky, substantially improved. Nails 1 on the right has evidence of paronychia and substantial dry flaky drainage. Upon clearing of this there is small abscess noted to the proximal medial nail fold. There is some incurvation of nail to the lateralmost aspect. No streaking lymphangitis. No malodor. Upon expression there is a small amount of purulence. Musculoskeletal: Bilateral foot and ankle overall rectus alignment. Muscle strength testing 5 out of 5 all tested muscular. Ankle range of motion limited with knee extended and slightly increased knee flexed. Tenderness on palpation to right hallux nail. Diagnoses: 1. Ingrown toenail Wound Aerobic Culture Wound Anaerobic Culture Wound Anaerobic Culture 2. Paronychia of great toe Wound Aerobic Culture Wound Anaerobic Culture Wound Anaerobic Culture 3. PVD (peripheral vascular disease) ([facility]) Wound Aerobic Culture Wound Anaerobic Culture Wound Anaerobic Culture 4. Tobacco use Wound Aerobic Culture Wound Anaerobic Culture Wound Anaerobic Culture 5. Xerosis of skin Wound Aerobic Culture Wound Anaerobic Culture Wound Anaerobic Culture 6. Diabetic foot (HCC) Wound Aerobic Culture Wound Anaerobic Culture Wound Anaerobic Culture Imagin views of the right foot reviewed today AP MO and lateral. No acute fracture or dislocation of note. No evidence of cortical lysis or subcutaneous emphysema. Stable x-ray. Assessment/Plan: Patient was seen and evaluated. Discussed all clinical and radiographic findings Educated patient on etiology and pathophysiology associated with various foot maladies. Discussed various treatment options build patient. Given clinical depiction of wound and toe this necessitates debridement. Upon doing so most of it is superficial slough that is from dried drainage. Overlying is some paronychia. With the sharp podiatric dermal curette the medial nail fold was teased away from the nail plate and a small amount of purulence was expressed. Slant back was performed to the lateral border of the right great toe and appears to have resolved the ingrown. This was irrigated with copious amounts of irrigation aerobic and anaerobic culture was taken today Patient to continue with the doxycycline Patient does have appropriate flow to this right side with little to no deficits secondary to his vascular studies. Patient to soak this toe in Dial antibacterial soap and warm water twice a day for 30 minutes apiece Patient to follow-up in 1 week for reevaluation Discussed with patient secondary to his diabetes he is at risk of loss of this toe. Patient understands this. This note was partially created using voice recognition software and is inherently subject to errors including those of syntax and sound-alike substitutions which may escape proofreading. In such instances, original meaning may be extrapolated by contextual derivation. BHUMIKA Lin DPM Podiatric Foot & Ankle Surgery AUTHENTICATED BY BUDDY LIN [place], [place] 05/14/2024 11:11:59 [facility] 05-14-2024 History of Present illness Narrative Images from the original note were not included. Established Patient Visit BHUMIKA Lin DPM Patient Name: Stevo Elizalde. . Date of : 1950, 74 y.o.. Gender: male. Subjective: Patient is a pleasant 74-year-old male who presents to clinic today for concerns of right great toe infection. Patient was placed on doxycycline and has been on it for about a week. Patient continues to smoke about a half a pack a day. Patient relates that the drainage is improving but it is still quite tender to the area. Patient denies does not remember any trauma. Patient is a diabetic with last known hemoglobin A1c of 8.32 weeks ago. He denies any current fever, chills, nausea, vomit, chest pain calf pain or shortness of breath. Patient has no other pedal complaints at this time peer Physical Examination: BP 108/71 (BP Location: Left arm, Patient Position: Sitting, BP Cuff Size: Adult) Pulse 93 Temp 98.5 F (36.9 C) (Infrared) SpO2 92% General Appearance: Alert, cooperative, no distress, appears stated age. Podiatric Exam Vascular: DP and PT pulses are nonpalpable. CFT is brisk to exposed digits. Absent hair growth the bilateral feet. Skin temperature is warm to cool from proximal tibial tuberosity to distal digits. Neurological: Epicritic and protopathic sensation intact to bilateral lower extremities. Dermatologic: Skin is diffusely xerotic and flaky, substantially improved. Nails 1 on the right has evidence of paronychia and substantial dry flaky drainage. Upon clearing of this there is small abscess noted to the proximal medial nail fold. There is some incurvation of nail to the lateralmost aspect. No streaking lymphangitis. No malodor. Upon expression there is a small amount of purulence. Musculoskeletal: Bilateral foot and ankle overall rectus alignment. Muscle strength testing 5 out of 5 all tested muscular. Ankle range of motion limited with knee extended and slightly increased knee flexed. Tenderness on palpation to right hallux nail. Diagnoses: 1. Ingrown toenail Wound Aerobic Culture Wound Anaerobic Culture Wound Anaerobic Culture 2. Paronychia of great toe Wound Aerobic Culture Wound Anaerobic Culture Wound Anaerobic Culture 3. PVD (peripheral vascular disease) (HCC) Wound Aerobic Culture Wound Anaerobic Culture Wound Anaerobic Culture 4. Tobacco use Wound Aerobic Culture Wound Anaerobic Culture Wound Anaerobic Culture 5. Xerosis of skin Wound Aerobic Culture Wound Anaerobic Culture Wound Anaerobic Culture 6. Diabetic foot (HCC) Wound Aerobic Culture Wound Anaerobic Culture Wound Anaerobic Culture Imagin views of the right foot reviewed today AP MO and lateral. No acute fracture or dislocation of note. No evidence of cortical lysis or subcutaneous emphysema. Stable x-ray. Assessment/Plan: Patient was seen and evaluated. Discussed all clinical and radiographic findings Educated patient on etiology and pathophysiology associated with various foot maladies. Discussed various treatment options build patient. Given clinical depiction of wound and toe this necessitates debridement. Upon doing so most of it is superficial slough that is from dried drainage. Overlying is some paronychia. With the sharp podiatric dermal curette the medial nail fold was teased away from the nail plate and a small amount of purulence was expressed. Slant back was performed to the lateral border of the right great toe and appears to have resolved the ingrown. This was irrigated with copious amounts of irrigation aerobic and anaerobic culture was taken today Patient to continue with the doxycycline Patient does have appropriate flow to this right side with little to no deficits secondary to his vascular studies. Patient to soak this toe in Dial antibacterial soap and warm water twice a day for 30 minutes apiece Patient to follow-up in 1 week for reevaluation Discussed with patient secondary to his diabetes he is at risk of loss of this toe. Patient understands this. This note was partially created using voice recognition software and is inherently subject to errors including those of syntax and "sound-alike" substitutions which may escape proofreading. In such instances, original meaning may be extrapolated by contextual derivation. BHUMIKA Lin DPM Podiatric Foot & Ankle Surgery documented in this encounter [facility] 05-09-2024 Note Patient ID: Stevo Elizalde is a 74 y.o. male 1950 Subjective: Stevo Elizalde presents for evaluation of Type 2 diabetes Patient has had diabetes for 16 years. Diagnosed in 2004 Patient has taken Insulin for 10-11 years. Patient has been following with Dr. Carmelita MD. Metformin stopped due to CRI. Mr. Elizalde is a 74 year-old male patient that presents today for follow-up in regards to his type 2 diabetes. Patient currently takes basal insulin and novolog sliding scale, he states that he checks blood sugars approximately once daily. Glucometer reviewed today. Hemoglobin A1c has remained stable at 9.1%. Outpatient Medications Marked as Taking for the 05/07/24 encounter (Office Visit) with David Waters, RAQUEL: acetaminophen (TYLENOL) 325 MG tablet, Take 2 (two) tablets (650 mg total) by mouth as needed for pain . ammonium lactate (AMLACTIN) 12 % cream, Apply topically 2 (two) times a day . aspirin 81 MG EC tablet, Take 1 (one) tablet (81 mg total) by mouth daily . atorvastatin (LIPITOR) 20 MG tablet, Take 1 (one) tablet (20 mg total) by mouth daily . blood sugar diagnostic (Accu-Chek Guide test strips) strips, Use to check BG 3 x daily. DX code E11.65 inulin dependent DM (Accu-check Guide strips.) . blood-glucose meter kit, 1 each by Other route Use as instructed to check BG 2x daily. DX code E11.65 . blood-glucose meter, wireless Kit, by Miscellaneous route Use to check BG 2x daily. DXc ode E11.76 . calcium-vitamin D (OS-SHELDON +D) 500 mg-5 mcg (200 unit) per tablet, Take 1 (one) tablet by mouth 2 (two) times a day with meals . clopidogreL (PLAVIX) 75 mg tablet, Take 1 (one) tablet (75 mg total) by mouth daily . diclofenac sodium (Voltaren Arthritis Pain) 1 % Gel, Apply topically every 6 (six) hours as needed . famotidine (PEPCID) 20 MG tablet, Take 1 (one) tablet (20 mg total) by mouth 2 (two) times a day . fenofibrate (TRICOR) 145 MG tablet, Take 1 (one) tablet (145 mg total) by mouth daily Give with food . fluticasone propion-salmeteroL (ADVAIR DISKUS) 500-50 mcg/dose diskus inhaler, Inhale 1 (one) puff 2 (two) times a day . insulin aspart U-100 (NovoLOG Flexpen U-100 Insulin) 100 unit/mL (3 mL) InPn, Inject sliding scale at breakfast and supper up to 8 units daily total. Dx code E11.65. Fill for NOVOLOG per insurance. . isosorbide mononitrate (IMDUR) 30 MG 24 hr tablet, Take 2 (two) tablets (60 mg total) by mouth daily . lancets [facility] [place], Check blood glucose 4 times daily . lancing device with lancets (Accu-Chek Soft Dev Lancets) Kit, Use to check 2 x daily. DX code E11.65 . Lantus Solostar U-100 Insulin 100 unit/mL (3 mL) InPn, Inject 16 (sixteen) Units under the skin every morning . loratadine (CLARITIN) 10 mg tablet, Take 1 (one) tablet (10 mg total) by mouth daily as needed for allergies . mcofjrma-xpxy-DN-calcium-mins 9 mg iron-400 mcg Tab, Take 1 (one) tablet by mouth daily . nitroGLYCERIN (NITROSTAT) 0.4 MG SL tablet, Place 1 (one) tablet (0.4 mg total) under the tongue every 5 (five) minutes as needed for chest pain . pantoprazole (PROTONIX) 40 MG tablet, Take 1 (one) tablet (40 mg total) by mouth daily Start: 04/13/21. PARoxetine (PAXIL) 20 MG tablet, Take 1 (one) tablet (20 mg total) by mouth daily . primidone (MYSOLINE) 50 MG tablet, Take 2 (two) tablets (100 mg total) by mouth nightly . propranoloL (INDERAL LA) 120 MG 24 hr capsule, Take 1 (one) capsule (120 mg total) by mouth daily . sodium bicarbonate 650 MG tablet, Take 2 (two) tablets (1,300 mg total) by mouth 2 (two) times a day . sucralfate (CARAFATE) 1 gram tablet, Take 1 (one) tablet (1 g total) by mouth 4 (four) times a day before meals and nightly . tamsulosin (FLOMAX) 0.4 mg capsule, Take 1 (one) capsule (0.4 mg total) by mouth daily . tiotropium (SPIRIVA) 18 mcg inhalation capsule, Place 1 (one) capsule (18 mcg total) into inhaler and inhale daily . triamcinolone (KENALOG) 0.1 % cream, Apply topically 2 (two) times a day . Ventolin HFA 90 mcg/actuation inhaler, USE 2 PUFFS EVERY 6 HOURS FOR SHORTNESS OF BREATH OR WHEEZING. Review of Systems: Review of Systems Constitutional: Positive for fatigue. Negative for unexpected weight change. HENT: Negative for trouble swallowing. Eyes: Negative for visual disturbance. Respiratory: Positive for shortness of breath (chronic). Negative for cough. Cardiovascular: Positive for chest pain (at times.). Negative for leg swelling. Gastrointestinal: Negative for abdominal pain, constipation, diarrhea, nausea and vomiting. Endocrine: Negative for polydipsia, polyphagia and polyuria. Genitourinary: Negative for frequency and urgency. Musculoskeletal: Positive for arthralgias. Negative for back pain. Skin: Negative for wound. No rash, reports generalized pruritis. Legs, arms, feet, etc Neurological: Positive for tremors (per baseline), weakness and numbness. Negative for headaches. Psychiatric/Behavioral: Negative for (more content not included)... [facility] 05-09-2024 History of Present illness Narrative Images from the original note were not included. Patient ID: Stevo Elizalde is a 74 y.o. male 1950 Subjective: Stevo Elizalde presents for evaluation of Type 2 diabetes Patient has had diabetes for 16 years. Diagnosed in 2004 Patient has taken Insulin for 10-11 years. Patient has been following with Dr. Carmelita MD. Metformin stopped due to CRI. Mr. Elizalde is a 74 year-old male patient that presents today for follow-up in regards to his type 2 diabetes. Patient currently takes basal insulin and novolog sliding scale, he states that he checks blood sugars approximately once daily. Glucometer reviewed today. Hemoglobin A1c has remained stable at 9.1%. Outpatient Medications Marked as Taking for the 05/07/24 encounter (Office Visit) with David Waters CNP: acetaminophen (TYLENOL) 325 MG tablet, Take 2 (two) tablets (650 mg total) by mouth as needed for pain . ammonium lactate (AMLACTIN) 12 % cream, Apply topically 2 (two) times a day . aspirin 81 MG EC tablet, Take 1 (one) tablet (81 mg total) by mouth daily . atorvastatin (LIPITOR) 20 MG tablet, Take 1 (one) tablet (20 mg total) by mouth daily . blood sugar diagnostic (Accu-Chek Guide test strips) strips, Use to check BG 3 x daily. DX code E11.65 inulin dependent DM (Accu-check Guide strips.) . blood-glucose meter kit, 1 each by Other route Use as instructed to check BG 2x daily. DX code E11.65 . blood-glucose meter, wireless Kit, by Miscellaneous route Use to check BG 2x daily. DXc ode E11.76 . calcium-vitamin D (OS-SHELDON +D) 500 mg-5 mcg (200 unit) per tablet, Take 1 (one) tablet by mouth 2 (two) times a day with meals . clopidogreL (PLAVIX) 75 mg tablet, Take 1 (one) tablet (75 mg total) by mouth daily . diclofenac sodium (Voltaren Arthritis Pain) 1 % Gel, Apply topically every 6 (six) hours as needed . famotidine (PEPCID) 20 MG tablet, Take 1 (one) tablet (20 mg total) by mouth 2 (two) times a day . fenofibrate (TRICOR) 145 MG tablet, Take 1 (one) tablet (145 mg total) by mouth daily Give with food . fluticasone propion-salmeteroL (ADVAIR DISKUS) 500-50 mcg/dose diskus inhaler, Inhale 1 (one) puff 2 (two) times a day . insulin aspart U-100 (NovoLOG Flexpen U-100 Insulin) 100 unit/mL (3 mL) InPn, Inject sliding scale at breakfast and supper up to 8 units daily total. Dx code E11.65. Fill for NOVOLOG per insurance. . isosorbide mononitrate (IMDUR) 30 MG 24 hr tablet, Take 2 (two) tablets (60 mg total) by mouth daily . lancets Mis, Check blood glucose 4 times daily . lancing device with lancets (Accu-Chek Soft Dev Lancets) Kit, Use to check 2 x daily. DX code E11.65 . Lantus Solostar U-100 Insulin 100 unit/mL (3 mL) InPn, Inject 16 (sixteen) Units under the skin every morning . loratadine (CLARITIN) 10 mg tablet, Take 1 (one) tablet (10 mg total) by mouth daily as needed for allergies . obmbnutl-kbrf-RX-calcium-mins 9 mg iron-400 mcg Tab, Take 1 (one) tablet by mouth daily . nitroGLYCERIN (NITROSTAT) 0.4 MG SL tablet, Place 1 (one) tablet (0.4 mg total) under the tongue every 5 (five) minutes as needed for chest pain . pantoprazole (PROTONIX) 40 MG tablet, Take 1 (one) tablet (40 mg total) by mouth daily Start: 04/13/21. PARoxetine (PAXIL) 20 MG tablet, Take 1 (one) tablet (20 mg total) by mouth daily . primidone (MYSOLINE) 50 MG tablet, Take 2 (two) tablets (100 mg total) by mouth nightly . propranoloL (INDERAL LA) 120 MG 24 hr capsule, Take 1 (one) capsule (120 mg total) by mouth daily . sodium bicarbonate 650 MG tablet, Take 2 (two) tablets (1,300 mg total) by mouth 2 (two) times a day . sucralfate (CARAFATE) 1 gram tablet, Take 1 (one) tablet (1 g total) by mouth 4 (four) times a day before meals and nightly . tamsulosin (FLOMAX) 0.4 mg capsule, Take 1 (one) capsule (0.4 mg total) by mouth daily . tiotropium (SPIRIVA) 18 mcg inhalation capsule, Place 1 (one) capsule (18 mcg total) into inhaler and inhale daily . triamcinolone (KENALOG) 0.1 % cream, Apply topically 2 (two) times a day . Ventolin HFA 90 mcg/actuation inhaler, USE 2 PUFFS EVERY 6 HOURS FOR SHORTNESS OF BREATH OR WHEEZING. Review of Systems: Review of Systems Constitutional: Positive for fatigue. Negative for unexpected weight change. HENT: Negative for trouble swallowing. Eyes: Negative for visual disturbance. Respiratory: Positive for shortness of breath (chronic). Negative for cough. Cardiovascular: Positive for chest pain (at times.). Negative for leg swelling. Gastrointestinal: Negative for abdominal pain, constipation, diarrhea, nausea and vomiting. Endocrine: Negative for polydipsia, polyphagia and polyuria. Genitourinary: Negative for frequency and urgency. Musculoskeletal: Positive for arthralgias. Negative for back pain. Skin: Negative for wound. No rash, reports generalized pruritis. Legs, arms, feet, etc Neurological: Positive for tremors (per baseline), weakness and numbness. Negative for headaches. Psychiatric/Behavioral: Negative for agitation and sleep disturbance. The patient is not nervous/anxious. The following portions of the patient's history were reviewed and updated as appropriate: allergies, current medications, past family history, past medical history, past social history, past surgical history and problem list. Objective: BP 121/71 (BP Location: Right arm) Pulse 78 Wt 67 kg (147 lb 12.8 oz) SpO2 94% BMI 23.86 kg/m Wt Readings from Last 3 Encounters: 05/07/24 67 kg (147 lb 12.8 oz) 10/18/23 67.4 kg (148 lb 9.6 oz) 10/11/23 67.1 kg (148 lb) Physical Exam: General: alert, appears stated age and cooperative Eyes: conjunctivae/corneas clear. PERRL, EOM's intact. Neck: no adenopathy, supple, symmetrical, trachea midline. Thyroid: No thyromegaly appreciated Lung: clear to auscultation bilaterally Heart: regular rate and rhythm, S1, S2 normal, no murmur, click, rub or gallop Extremities: extremities normal, atraumatic, no cyanosis or edema Feet: Dry skin, wound to right great toe, below the nail bed. Purulent drainage noted. Bilateral Feet: warm, good capillary refill and normal DP. Monofilament exam Normal , bilateral lower extremities. Neuro: normal without focal findings, mental status, speech normal, alert and oriented x3 and CHERYL Laboratory Review: BP 121/71 (BP Location: Right arm) Pulse 78 Wt 67 kg (147 lb 12.8 oz) SpO2 94% BMI 23.86 kg/m 03/08/24 *labs reviewed 05/09/24 Hgb A1c: 9.1% Creat: 1.33; eGFR: 56 AST: 16; ALT: 12 K: 4.9 Tchol: 161; Tri ; HDL: 34 ; LDL: 68 TSH: 1.99 ; FreeT4: 1.1 Microalbumin/creatinine Ratio: 423 10/11/2023 Hemoglobin A1c 8.6% Creatinine 1.85 GFR 38 AST 14 ALT 27 10/04/22 *labs reviewed 05/09/24 Hgb A1c: 7.9% Creat: 1.91; eGFR: 37 AST: 20; ALT: 28 K: 4.6 CBC: WBC:7.93; Hgb: 11.7; Hct: 33.7; Plt: 262 Tchol: 178; Tri ; HDL: 46 ; LDL: 59 TSH: 2.97 ; FreeT4: 0.8 Microalbumin/creatinine Ratio: 05/12/2022 Hemoglobin A1c 6.9% Creatinine 1.82, estimated GFR 39, K4.6 AST 21, ALT 25 12/14/2021 Hemoglobin A1c 7.2% Creatinine 1.62, estimated GFR 42, K4.3 AST 20, ALT 30 T cholesterol 216, TG 247, HDL 39, LDL 128 TSH 2.51, free T4: 0.9 Microalbumin/creatinine ratio: 213 08/03/21 Hgb A1c: 5.9% 05/09/21 Creat: 1.57; eGFR: 43 K: 4.4 CBC: WBC:7356; Hgb: 8.6; Hct: 26.4.; Plt: 265 07/28/2020 Hemoglobin A1c: 5.9% Creat: 1.68, eGFR: 40 K: 4.6 AST: 20, ALT: 24 Tot chol: 178, T, HDL: 40, LDL: 75 WBC: 5.30, Hgb: 13.6, Hct: 39.6, Plt: 170 TSH: 1.07, Free T4: 1.0 Micro/creat: 380 Assessment/Plan: Dx: 1. Type 2 diabetes mellitus with stage 3b chronic kidney disease, with long-term current use of insulin ([facility]) CBC and Differential Comprehensive Metabolic Panel Hemoglobin A1c T4, Free TSH Type 2 diabetes, under fair control Currently taking: Lantus insulin: 12 units at breakfast; 0 units at bedtime Jardiance 10 mg oral daily Current Hemoglobin A1C= Lab Results Component Value Date HGBA1C 9.1 (H) 03/08/2024 HGBA1C 8.6 (H) 10/11/2023 HGBA1C 8.8 (H) 07/10/2023 Weight trend: is stable Current diet: carb controlled Current exercise: none Current monitoring regimen: home blood tests - 1 times daily Home blood sugar records: See scanned readings Any episodes of hypoglycemia? None as of recently NOTES: Retinopathy: Negative Exam within last 12 months: yes Refund Specialist/Technical Editor: [facility] Other Ophthalmologic Conditions: S/P Right cataract extraction with IOLI and S/P Left cataract extraction with IOLI Nephropathy: Positive -- Creatinine 1.85 GFR 38 10/11/[address] Clif Cheung every 6 months Lab Results Component Value Date CREATININE 1.33 (H) 03/08/2024 EXTEGFR >=60 09/19/2018 EXTEGFRAFAME >=60 09/19/2018 Microalbumin/creatinine ratio: 213 Is patient on MADELYN inhibitor or angiotensin II receptor danny? no Peripheral Neuropathy: Positive Reports bilateral numbness and tingling in feet, Stable from previous, currently taking Lyrica 75 mg 2 times daily Autonomic Neuropathy: Negative Hypoglycemia unawareness. Senses low BG at <80 mg/dl. Other: Hyperlipidemia: Positive Currently taking: atorvastatin and fenofibrate. LFT's WNL Plan: Patient was instructed to consume a heart healthy low-cholesterol diet Hypertension: Positive. Currently taking: propanolol BP: 121/71 Cardiac: Positive on Isosorbide Experiencing chest pain No . Experiencing shortness of breath No History of CAD, PVD Follows routinely with: Dr. Herrera, Biannual follow-up, saw RESEARCH MICROBIOLOGIST 07/12/2023 Respiratory: Positive History of COPD, continues to smoke 1 ppd. Previously followed with Dr. Jesus Cruz, will be seeing Dr. Michele or [place]. Vascular: Positive History of CVA 2009 Feet: 10/18/2023 Follows with Podiatry: No Decision Science Analyst: History of foot ulceration: Yes. Right 4thrd toe. Will be seeing podiatry soon, going to call with an appointment, with Dr Patel Newly developed lesion to right great toe at the base of the nail. Rx sent to pharmacy for doxycyline 100 mg BID. Instructed to call Dr. Patel [facility] for appointment this week for further evaluation and treatment. Patient offered that our office would call for appointment, however he refused and states they would call later today. History of amputation: No Thyroid: Lab Results Component Value Date TSH 1.99 03/08/2024 Negative Other: Follows with Dr. Dewitt for chronic anemia. Right hip fracture, repair with TFN nail 04/07/21. Diagnosed with Parkinsons disease. Chronic tremor and difficulty ambulating. Plan: 1. Rx changes: See insulin dose adjustments below Lantus insulin 18 units every morning Novolog 5 units TID with meals Use as directed with Novolog insulin before meals and at bedtime. 151-200: 1 units fast acting insulin 201-250: 2 units fast acting insulin 251-300: 3 units fast acting insulin 301-350: 4 units fast acting insulin 351-400: 5 units fast acting insulin Call podiatry office today for earlier follow up. Discussed risks associated with diabetic foot wound and osteomyelitis. Patient was advised to make sure he is checking his blood sugar not only in the morning but in the evening prior to supper. We may need to make some adjustments to his medication regimen based on his evening readings. He was reminded his goal hemoglobin A1c is between 7-8% closer to 7%. 2. Education: Reviewed ABCs of diabetes management (respective goals in parentheses): A1C (7.0-8.0), blood pressure (<130/80), and cholesterol (LDL <100). 3. Compliance at present is estimated to be fair. Efforts to improve compliance (if necessary) will be directed at increased exercise and regular blood sugar monitorin times daily. Also, will be directed at dietary modifications: Limit portion sizes and Limit starches, carbohydrates and concentrated sugar sources 4. Follow up: 4 months 5. Record blood sugar readings as instructed. Call if BG consistently <70 or >250. [phone] Patient has been checking blood glucoses 2 times daily for the past 90 days. Patient needs to continue checking blood glucoses 2 times daily. Blood glucose readings are used to adjust medication or insulin doses for meals, monitor dietary compliance, and adjust for high or low blood glucoses by patient on a daily basis. Blood glucose readings are reviewed at office visits for adjustment in medication regimen and assistance with dietary management, and other self-management issues including exercise, etc. Prognosis: Good. Duration of need for diabetes testing equipment: Permanent #150 strips/month prescribed. 6. Bring blood sugar meter to follow up appointment. Orders Placed This Encounter Procedures CBC and Differential Comprehensive Metabolic Panel Hemoglobin A1c T4, Free TSH Electronically Signed by: David Waters CNP 05/09/24 9:40 AM documented in this encounter [facility] 03-26-2024 Note Established Patient Visit BHUMIKA iLn DPM Patient Name: Stevo Elizalde. . Date of : 1950, 74 y.o.. Gender: male. Subjective: Patient is a pleasant 74-year-old male who presents to clinic today for high risk nail care and reevaluation of EMG/NCV. Patient is a current half pack a day smoker. Patient relates that nails are thickened elongated and tender for him to cut. Patient is here for reevaluation as he had noninvasive vascular studies. He denies any current fever, chills, nausea, vomit, chest pain calf pain or shortness of breath. Patient has no other pedal complaints at this time peer Physical Examination: BP 110/73 (BP Location: Left arm, Patient Position: Sitting, BP Cuff Size: Adult) Pulse 68 Temp 98.4 degrees F (36.9 degrees C) (Infrared) SpO2 94% General Appearance: Alert, cooperative, no distress, appears stated age. Podiatric Exam Vascular: DP and PT pulses are nonpalpable. CFT is brisk to exposed digits. Absent hair growth the bilateral feet. Skin temperature is warm to cool from proximal tibial tuberosity to distal digits. Neurological: Epicritic and protopathic sensation intact to bilateral lower extremities. Dermatologic: Skin is diffusely xerotic and flaky, substantially improved. Patient does have superficial abrasions noted to bilateral lower extremities from itching, improved. No erythema discharge or malodor. Nails 1-3 4 5 on the left and 1-3 4 5 on the right are elongated dystrophic with evidence of subungual debris. Upon debridement these are quite brittle as well. Musculoskeletal: Bilateral foot and ankle overall rectus alignment. Muscle strength testing 5 out of 5 all tested muscular. Ankle range of motion limited with knee extended and slightly increased knee flexed. Diagnoses: 1. Diabetic foot (HCC) 2. PVD (peripheral vascular disease) ([facility]) 3. Type 2 diabetes mellitus with stage 3b chronic kidney disease, with long-term current use of insulin ([facility]) 4. Claudication of lower extremity ([facility]) 5. Tobacco use 6. Xerosis of skin 7. Onychodystrophy 8. Onychomycosis 9. Toe pain, bilateral Imaging: Reviewed noninvasive vascular studies in detail with patient today. Impression below. Segmental Doppler Lower Extremity Arterial Result Date: 03/21/2024 Patient Info Name: STEVO ELIZALDE Age: 74 years : 1950 Gender: Male Exam Date: 03/21/2024 3:08 PM Patient Status: Outpatient Enrollment Representative: Albert Sandra RVT Referring Physician: BUDDY LIN II ; Indications - non palpable pulses, tobacco use I73.9 - Peripheral vascular disease, unspecified Procedure Description 93266 Limited bilateral noninvasive physiologic studies of upper or lower extremity arteries with bidirectional Doppler/PVR waveform analysis at 1-2 levels. Conclusions * Right. * Right ankle brachial index is normal. CLEMENCIA is 0.94. * No evidence of small vessel disease at the transmetatarsal level in the right foot. * Right toe brachial index is normal. * Left. * Left ankle brachial index indicates mild peripheral artery disease noted at the iliofemoral level(s). CLEMENCIA is 0.78. * Mild small vessel disease at the transmetatarsal level in the left foot. * Left toe brachial index is abnormal. * Previous exam : right CLEMENCIA .99 ; left CLEMENCIA .87. Recommendations * Mild arterial insufficiency at rest on the left. Clinical correlation for signs/symptoms of PAD, further delineation with duplex or angiogram if warranted. . Doppler Rt Common Femoral: Triphasic Rt Popliteal: Triphasic Rt Posterior Tibial: Triphasic Rt Dorsalis Pedis: Triphasic Lt Common Femoral: Biphasic Lt Popliteal: Biphasic Lt Posterior Tibial: Biphasic Lt Dorsalis Pedis: Biphasic PVR Rt Thigh: Normal Rt Calf: Normal Rt Ankle: Normal Lt Thigh: Abnormal Lt Calf: Abnormal Lt Ankle: Abnormal Rt Digit: Normal Lt Digit: Abnormal Rt Brachial: 168 Rt Thigh: 156 Rt Calf: 156 Rt Posterior Tibial: 163 Rt Dorsalis Pedis: 159 Rt Digit: 155 0.90 0.90 0.94 0.91 0.89 Lt Brachial: 174 Lt Thigh: 128 Lt Calf: 122 Lt Posterior Tibial: 135 Lt Dorsalis Pedis: 131 Lt Digit: 111 0.74 0.70 0.78 0.75 0.64 Prior Study Date: 03/17/2022 Risk Factors Patient has a history of hypertension, hyperlipidemia, diabetes, tobacco use-current and PAD. COPD. CKD. . Report Signatures Finalized by Maximino Chaparro MD on 03/21/2024 04:04 PM Assessment/Plan: Patient was seen and evaluated. Discussed all clinical findings Reviewed noninvasive vascular studies in detail with patient today. Should patient continue to be symptomatic or worsen we can get him established with vascular. Patient does relate that he already sees Dr. Munguia and will make mention of this to him. Patient would like to have new prescription for ammonium lactate and triamcinolone as this will substantially help with his itching and dryness. Patient has gotten fit for his diabetic shoes with inser (more content not included)... [facility] 03-26-2024 History of Present illness Narrative Images from the original note were not included. Established Patient Visit BHUMIKA Lin DPM Patient Name: Stevo Elizalde. . Date of : 1950, 74 y.o.. Gender: male. Subjective: Patient is a pleasant 74-year-old male who presents to clinic today for high risk nail care and reevaluation of EMG/NCV. Patient is a current half pack a day smoker. Patient relates that nails are thickened elongated and tender for him to cut. Patient is here for reevaluation as he had noninvasive vascular studies. He denies any current fever, chills, nausea, vomit, chest pain calf pain or shortness of breath. Patient has no other pedal complaints at this time peer Physical Examination: BP 110/73 (BP Location: Left arm, Patient Position: Sitting, BP Cuff Size: Adult) Pulse 68 Temp 98.4 F (36.9 C) (Infrared) SpO2 94% General Appearance: Alert, cooperative, no distress, appears stated age. Podiatric Exam Vascular: DP and PT pulses are nonpalpable. CFT is brisk to exposed digits. Absent hair growth the bilateral feet. Skin temperature is warm to cool from proximal tibial tuberosity to distal digits. Neurological: Epicritic and protopathic sensation intact to bilateral lower extremities. Dermatologic: Skin is diffusely xerotic and flaky, substantially improved. Patient does have superficial abrasions noted to bilateral lower extremities from itching, improved. No erythema discharge or malodor. Nails 1-3 4 5 on the left and 1-3 4 5 on the right are elongated dystrophic with evidence of subungual debris. Upon debridement these are quite brittle as well. Musculoskeletal: Bilateral foot and ankle overall rectus alignment. Muscle strength testing 5 out of 5 all tested muscular. Ankle range of motion limited with knee extended and slightly increased knee flexed. Diagnoses: 1. Diabetic foot ([facility]) 2. PVD (peripheral vascular disease) ([facility]) 3. Type 2 diabetes mellitus with stage 3b chronic kidney disease, with long-term current use of insulin ([facility]) 4. Claudication of lower extremity ([facility]) 5. Tobacco use 6. Xerosis of skin 7. Onychodystrophy 8. Onychomycosis 9. Toe pain, bilateral Imaging: Reviewed noninvasive vascular studies in detail with patient today. Impression below. Segmental Doppler Lower Extremity Arterial Result Date: 03/21/2024 Patient Info Name: STEVO ELIZALDE Age: 74 years : 1950 Gender: Male Exam Date: 03/21/2024 3:08 PM Patient Status: Outpatient Enrollment Representative: Albert Sandra Forrest Referring Physician: BUDDY LIN II ; Indications - non palpable pulses, tobacco use I73.9 - Peripheral vascular disease, unspecified Procedure Description 00500 Limited bilateral noninvasive physiologic studies of upper or lower extremity arteries with bidirectional Doppler/PVR waveform analysis at 1-2 levels. Conclusions * Right. * Right ankle brachial index is normal. CLEMENCIA is 0.94. * No evidence of small vessel disease at the transmetatarsal level in the right foot. * Right toe brachial index is normal. * Left. * Left ankle brachial index indicates mild peripheral artery disease noted at the iliofemoral level(s). CLEMENCIA is 0.78. * Mild small vessel disease at the transmetatarsal level in the left foot. * Left toe brachial index is abnormal. * Previous exam : right CLEMENCIA .99 ; left CLEMENCIA .87. Recommendations * Mild arterial insufficiency at rest on the left. Clinical correlation for signs/symptoms of PAD, further delineation with duplex or angiogram if warranted. . Doppler Rt Common Femoral: Triphasic Rt Popliteal: Triphasic Rt Posterior Tibial: Triphasic Rt Dorsalis Pedis: Triphasic Lt Common Femoral: Biphasic Lt Popliteal: Biphasic Lt Posterior Tibial: Biphasic Lt Dorsalis Pedis: Biphasic PVR Rt Thigh: Normal Rt Calf: Normal Rt Ankle: Normal Lt Thigh: Abnormal Lt Calf: Abnormal Lt Ankle: Abnormal Rt Digit: Normal Lt Digit: Abnormal Rt Brachial: 168 Rt Thigh: 156 Rt Calf: 156 Rt Posterior Tibial: 163 Rt Dorsalis Pedis: 159 Rt Digit: 155 0.90 0.90 0.94 0.91 0.89 Lt Brachial: 174 Lt Thigh: 128 Lt Calf: 122 Lt Posterior Tibial: 135 Lt Dorsalis Pedis: 131 Lt Digit: 111 0.74 0.70 0.78 0.75 0.64 Prior Study Date: 03/17/2022 Risk Factors Patient has a history of hypertension, hyperlipidemia, diabetes, tobacco use-current and PAD. COPD. CKD. . Report Signatures Finalized by Maximino Chaparro MD on 03/21/2024 04:04 PM Assessment/Plan: Patient was seen and evaluated. Discussed all clinical findings Reviewed noninvasive vascular studies in detail with patient today. Should patient continue to be symptomatic or worsen we can get him established with vascular. Patient does relate that he already sees Dr. Munguia and will make mention of this to him. Patient would like to have new prescription for ammonium lactate and triamcinolone as this will substantially help with his itching and dryness. Patient has gotten fit for his diabetic shoes with inserts but has not received them yet. Discussed possible treatment options with regards to patient's fungal toenails. Patient will is elected to move forward with mechanical debridement. Procedure:After timeout consent was performed, and alcohol prep, sharply debrided and debulked in height and length 10 onychomycotic nails with a sharp around nail nippers consistent with a q8 modifier. Low medical complexity decision making based on her arterial disease separate than her nail care. Follow-up in 3 months for nail care This note was partially created using voice recognition software and is inherently subject to errors including those of syntax and "sound-alike" substitutions which may escape proofreading. In such instances, original meaning may be extrapolated by contextual derivation. 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 male here for a Medicare Wellness visit. Past Medical, Surgical, and Family History reviewed and updated in chart. Reviewed all medications by prescribing practitioner or clinical pharmacist (such as prescriptions, OTCs, herbal therapies and supplements) and documented in the medical record. HPI Lab F/U WHICH WASN'T DONE .F/U AFTER ER VISIT FOR URI AND HYPOTENSION/ DIZZINESS . UNSTEADY GAIT , WEAKNESS of limbs CLAUDICATION, NECK PAIN 5/10 ON AND OFF ,WONDERS IF CAN HAVE ANOTHER COURSE OF PHYSICAL TX. IS CUTTING DOWN ON ETOH AND TOBACCO. MEDICARE WELLNESS EXAM. Patient Care Team: Phyllis Mae MD as PCP - General Phyllis Mae MD as PCP - [employer] PCP Review of Systems Constitutional: Negative for chills and fever. HENT: Negative. Negative for congestion, postnasal drip and rhinorrhea. Eyes: Negative. Negative for visual disturbance. Respiratory: Negative for cough, shortness of breath and wheezing. Cardiovascular: Negative. Negative for chest pain, palpitations and leg swelling. Gastrointestinal: Negative. Negative for abdominal distention, abdominal pain, constipation, diarrhea, nausea and vomiting. Endocrine: Negative. Genitourinary: Negative for dysuria and urgency. Musculoskeletal: Positive for neck pain. Negative for back pain. WEAKNESS OF LIMBS Skin: Negative. Negative for rash. Allergic/Immunologic: Negative for immunocompromised state. Neurological: Negative for dizziness, weakness, light-headedness and headaches. PER HPI Psychiatric/Behavioral: Negative. Negative for agitation. Objective Vitals: BP 93/51 Pulse 70 Ht 1.676 m (5' 6") Wt 66.2 kg (146 lb) BMI 23.57 kg/m Physical Exam Constitutional: General: He is not in acute distress. HENT: Head: Normocephalic. Nose: Nose normal. Mouth/Throat: Mouth: Mucous membranes are moist. Eyes: Conjunctiva/sclera: Conjunctivae normal. Pupils: Pupils are equal, round, and reactive to light. Cardiovascular: Rate and Rhythm: Normal rate and regular rhythm. Pulses: Normal pulses. Heart sounds: Normal heart sounds. Pulmonary: Effort: No respiratory distress. Breath sounds: No wheezing. Chest: Chest wall: No tenderness. Abdominal: General: Abdomen is flat. Bowel sounds are normal. Palpations: Abdomen is soft. Tenderness: There is no abdominal tenderness. Musculoskeletal: General: Tenderness present. Normal range of motion. Cervical back: Normal range of motion. Comments: 3/5 STRENGTH OF ALL LIMBS. Lymphadenopathy: Cervical: No cervical adenopathy. Skin: General: Skin is warm and dry. Findings: No rash. Neurological: General: No focal deficit present. Mental Status: He is alert. Mental status is at baseline. Psychiatric: Mood and Affect: Mood normal. Behavior: Behavior normal. Assessment/Plan 1. Routine general medical examination at health care facility 2. Superficial gastritis without hemorrhage, unspecified chronicity 3. Weakness of upper extremity Referral to Home Health 4. Weakness of both lower extremities Referral to Home Health 5. Recurrent falls Referral to Home Health 6. Neck pain Referral to Home Health 7. H/O: CVA (cerebrovascular accident) Referral to Home Health 8. Essential tremor Referral to Home Health 9. Neurogenic claudication Referral to Home Health 10. Stable angina pectoris ([facility]) 11. Hypertension associated with type 2 diabetes mellitus (Multi) propranolol (Inderal) 20 mg tablet 12. Encounter for vaccination pneumoc 20-chris conj-dip cr,PF, (Prevnar 20, PF,) 0.5 mL vaccine zoster vaccine-recombinant adjuvanted (Shingrix, PF,) 50 mcg/0.5 mL vaccine respiratory syncytial virus, RSV, vaccine, adjuvanted, age 60y+ (Arexvy, PF,) 120 mcg/0.5 mL suspension for reconstitution 13. 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Multi) Advanced Care Planing discussed, diagnosis , treatment and prognosis discussed with pt for 16 minutes ,pt has capacity to make own decision, pt has a living will, to bring a copy for the chart. ALL ASSESSED CHRONIC CONDITIONS ARE STABLE OR ADDRESSED. ADVISED TO APPLY WARM COMPRESSION AND OTC PAIN CREAM PRN FOR PAIN, FALL PRECAUTION. ADVISED TO QUIT ETOH ND TOBACCO AND TO DO THE LABS FOR NEXT VISIT. HTN addressed as follow: MONITOR BP GOAL BP LOWER THAN 130/80 WILL DECREASE PROPRANOLOL FROM 10 MG DAILY TO 20 MG BID. MDM 1) COMPLEXITY: 1 UNDIAGNOSED NEW PROBLEM WITH UNCERTAIN PROGNOSIS 2)DATA: TESTS INTERPRETED AND OR ORDERED, TOOK INDEPENDENT HISTORY OR RECORDS REVIEWED 3)RISK: MODERATE RISK DUE TO NATURE OF MEDICAL CONDITIONS/COMORBIDITY OR MEDICATIONS ORDERED OR SURGICAL OR PROCEDURE REFERRAL, . 2 weeks. Insert SmartText documented in this encounter [facility] Work Phone: 02-22-2024 History of Present illness Narrative [facility] NOTE: Name: Stevo Elizalde, 73 y.o. CSN:[id number] PCP: Phyllis Mae MD ALL: Allergies Allergen Reactions Levofloxacin Other vomiting Varenicline Swelling History: Chief Complaint: URI (Sore throat, cough, congest) Encounter Date: 02/22/2024 HPI: The history was obtained from the patient and . Stevo is a 73 y.o. male, who presents with a chief complaint of URI (Sore throat, cough, congest). He states his symptoms have been going on for a few days. He is concerned and does not want anything to move further down into his lungs as he states he has a long history. It does appear he does have COPD. He states he has been more fatigued as of lately. Has not taken any gnlr-wvw-eagpvwk medications at this time. Denies fever, nausea, vomiting, chest pain, shortness of breath, abdominal pain. Blood pressure of the right arm was 65/44 with multiple repeats being about the same. Present at the visit I retook his blood pressure and it was 92/58. Patient does state he has been much more fatigued the last few days. States he he does take blood pressure medication and he took his normal doses this morning. They did state that his lathe puller was trying to wean him off some of his blood pressure medications. He denies headache, nausea, vomiting, changes in vision, chest pain, shortness of breath. PMHx: Past Medical History: Diagnosis Date Encounter for examination of eyes and vision without abnormal findings Eye exam, routine Current Outpatient Medications Medication Sig Dispense Refill Accu-Chek Elli Plus test strp strip USE DIRECTED TO CHECK BLOOD SUGAR THREE TIMES DAILY Accu-Chek Softclix Lancets misc USE DIRECTED 4 TIMES A DAY E11.65 ON INSULIN REGIMEN . aclidinium (Tudorza Pressair) 400 mcg/actuation inhaler Inhale 1 puff 2 times a day. albuterol 2.5 mg /3 mL (0.083 %) nebulizer solution USE 1 UNIT DOSE IN NEBULIZER EVERY 6 HOURS NEEDED. 150 mL 3 albuterol 90 mcg/actuation inhaler USE 2 PUFFS EVERY 6 HOURS FOR SHORTNESS OF BREATH OR WHEEZING. 18 g 11 aspirin 81 mg EC tablet Take 1 tablet (81 mg) by mouth once daily. atorvastatin (Lipitor) 20 mg tablet Take 1 tablet (20 mg) by mouth once daily. 90 tablet 3 calcium carbonate-vitamin D3 500 mg-5 mcg (200 unit) tablet Take 1 tablet by mouth 2 times a day. clopidogrel (Plavix) 75 mg tablet Take 1 tablet (75 mg) by mouth once daily. 30 tablet 11 clotrimazole-betamethasone (Lotrisone) cream Apply 1 Application topically 2 times a day. [employer] Software G6 Sensor device To check BS QID 1 each 0 Dexcom G6 Transmitter device Use as instructed 1 each 0 diclofenac sodium (Voltaren) 1 % gel gel Apply 1 Application topically 4 times a day as needed (pain). (Patient not taking: Reported on 04/19/2023) 45 g 1 diclofenac sodium 1 % kit Apply 1 Application topically once daily. empagliflozin (Jardiance) 10 mg Take 1 tablet (10 mg) by mouth once daily. 90 tablet 3 famotidine (Pepcid) 20 mg tablet Take 1 tablet (20 mg) by mouth 2 times a day. 180 tablet 3 fenofibrate (Tricor) 145 mg tablet Take 1 tablet (145 mg) by mouth once daily. hydrALAZINE (Apresoline) 50 mg tablet Take 1 tablet (50 mg) by mouth every 8 hours. hydroCHLOROthiazide (HYDRODiuril) 12.5 mg tablet Take 1 tablet (12.5 mg) by mouth once daily. isosorbide mononitrate ER (Imdur) 30 mg 24 hr tablet Take 1 tablet (30 mg) by mouth once daily in the morning. Take before meals. labetalol (Normodyne) 100 mg tablet Take 1 tablet (100 mg) by mouth 2 times a day. Lantus Solostar U-100 Insulin 100 unit/mL (3 mL) pen INJECT 16 (SIXTEEN) UNITS UNDER THE SKIN NIGHTLY . levETIRAcetam (Keppra) 500 mg tablet Take 1 tablet (500 mg) by mouth once daily. loratadine (Claritin) 10 mg tablet Take 1 tablet (10 mg) by mouth once daily. lovastatin (Mevacor) 10 mg tablet TAKE 1 TABLET BY MOUTH EVERY DAY 90 tablet 3 multivitamin with minerals (ecvdkpjwzsem-woqe-gjiap acid) tablet Take 1 tablet by mouth once daily. nebulizer and compressor device 1 1e11 Vector Genomes every 4 hours if needed (SOB). 1 each 0 nebulizers (VixOne Nebulizer-Adult Mask) misc 1 1e11 Vector Genomes every 4 hours if needed (SOB). 1 each 11 nicotine (Nicoderm CQ) 21 mg/[address] 1 patch on the skin once daily. 30 patch 0 pantoprazole (ProtoNix) 40 mg EC tablet Take 1 tablet (40 mg) by mouth once daily in the morning. Take before meals. Do not crush, chew, or split. PARoxetine (Paxil) 20 mg tablet TAKE 1 TABLET BY MOUTH EVERY DAY 90 tablet 3 primidone (Mysoline) 50 mg tablet Take 1 tablet (50 mg) by mouth 2 times a day. 60 tablet 11 propranolol LA (Inderal LA) 120 mg 24 hr capsule Take 1 capsule (120 mg) by mouth once daily. sodium bicarbonate 650 mg tablet Take 2 tablets (1,300 mg) by mouth 2 times a day. Spiriva with HandiHaler 18 mcg inhalation capsule INHALE 1 CAPSULE VIA HANDIHALER ONCE DAILY AT THE SAME TIME EVERY DAY 30 capsule 11 sucralfate (Carafate) 1 gram tablet TAKE 1 TABLET (1 G) BY MOUTH 4 TIMES A DAY BEFORE MEALS. 120 tablet 0 tamsulosin (Flomax) 0.4 mg 24 hr capsule TAKE 1 CAPSULE BY MOUTH EVERY DAY 90 capsule 3 Wixela Inhub 500-50 mcg/dose diskus inhaler TAKE 1 PUFF BY MOUTH TWICE A DAY 60 each 11 No current facility-administered medications for this visit. PMSx: Past Surgical History: Procedure Laterality Date COLONOSCOPY 12/18/2017 OTHER SURGICAL HISTORY 09/03/2019 Esophagogastroduodenoscopy OTHER SURGICAL HISTORY 09/03/2019 Hand surgery OTHER SURGICAL HISTORY 09/03/2019 Rotator cuff repair OTHER SURGICAL HISTORY 09/03/2019 Neck surgery OTHER SURGICAL HISTORY 06/24/2021 Hip surgery Fam Hx: Family History Problem Relation Name Age of Onset Hypertension Father Heart attack Father Asthma Sister COPD Sister Emphysema Sister Hypertension Sister Diabetes type II Sister Lung cancer Other UNCLE Stomach cancer Other [employer]PAR[employer]. Hx: Social History Socioeconomic History Marital status: Spouse name: Not on file Number of children: Not on file Years of education: Not on file Highest education level: Not on file Occupational History Not on file Tobacco Use Smoking status: Every Day Current packs/day: 1.00 Types: Cigarettes Smokeless tobacco: Never Vaping Use Vaping status: Never Used Substance and Sexual Activity Alcohol use: Yes Comment: RARE Drug use: Never Sexual activity: Not on file Other Topics Concern Not on file Social History Narrative Not on file Social Determinants of Health Financial Resource Strain: Low Risk (02/28/2023) Received from [facility] Overall Financial Resource Strain (CARDIA) Difficulty of Paying Living Expenses: Not hard at all Food Insecurity: No Food Insecurity (02/28/2023) Received from [facility] Hunger Vital Sign Worried About Running Out of Food in the Last Year: Never true Ran Out of Food in the Last Year: Never true Transportation Needs: No Transportation Needs (02/28/2023) Received from [facility] PRAPARE - Transportation Lack of Transportation (Medical): No Lack of Transportation (Non-Medical): No Physical Activity: Inactive (02/28/2023) Received from [facility] Exercise Vital Sign Days of Exercise per Week: 0 days Minutes of Exercise per Session: 0 min Stress: No Stress Concern Present (02/28/2023) Received from [facility] [place] [employer] - Occupational Stress Questionnaire Feeling of Stress : Only a little Social Connections: Moderately Isolated (02/28/2023) Received from [facility] Social Connection and Isolation Panel [NHANES] Frequency of Communication with Friends and Family: More than three times a week Frequency of Social Gatherings with Friends and Family: Once a week Attends Restorationism Services: Never Active Member of Clubs or Organizations: No Attends Club or Organization Meetings: Never Marital Status: Intimate Partner Violence: Not At Risk (02/28/2023) Received from [facility] Humiliation, Afraid, Rape, and Kick questionnaire Fear of Current or Ex-Partner: No Emotionally Abused: No Physically Abused: No Sexually Abused: No Housing Stability: Low Risk (02/28/2023) Received from [facility] Stability Vital Sign Unable to Pay for Housing in the Last Year: No Number of Places Lived in the Last Year: 1 Unstable Housing in the Last Year: No Vitals: 02/22/24 1244 BP: (!) 65/44 Pulse: 80 Resp: 19 Temp: 36.7 C (98 F) SpO2: 96% 64 kg (141 lb) Physical Exam Vitals reviewed. Constitutional: Appearance: Normal appearance. HENT: Right Ear: Tympanic membrane normal. Left Ear: Tympanic membrane normal. Nose: Nose normal. Mouth/Throat: Mouth: Mucous membranes are moist. Pharynx: Oropharynx is clear. Posterior oropharyngeal erythema present. Eyes: Conjunctiva/sclera: Conjunctivae normal. Pupils: Pupils are equal, round, and reactive to light. Cardiovascular: Rate and Rhythm: Normal rate and regular rhythm. Pulses: Normal pulses. Heart sounds: Normal heart sounds. Pulmonary: Effort: Pulmonary effort is normal. Breath sounds: Normal breath sounds. No decreased breath sounds, wheezing, rhonchi or rales. Abdominal: General: Abdomen is flat. Palpations: Abdomen is soft. Skin: General: Skin is warm. Neurological: General: No focal deficit present. Mental Status: He is alert and oriented to person, place, and time. Psychiatric: Mood and Affect: Mood normal. Behavior: Behavior normal. I did personally review Stevo's past medical history, surgical history, social history, as well as family history (when relevant). In this case, I also oversaw the his drug management by reviewing his medication list, allergy list, as well as the medications that I prescribed during the UC course and/or recommended as an out-patient (including possible OTC medications such as acetaminophen, NSAIDs , etc). After reviewing the items above, I did look at previous medical documentation, such as recent hospitalizations, office visits, and/or recent consultations with PCP/specialist. SDOH: Another factor that I considered in Stevo's care was his Social Determinants of Health (SDOH). During this UC encounter, he did not have social determinants of health. Those SDOH influencing Stevo's care are: none LABORATORY @ RADIOLOGICAL IMAGING (if done): No results found for this or any previous visit (from the past 24 hour(s)). UC COURSE/MEDICAL DECISION MAKING: Stevo is a 73 y.o., who presents with a working diagnosis of 1. Hypotension, unspecified hypotension type 2. Upper respiratory tract infection, unspecified type Stevo was seen today for uri. Diagnoses and all orders for this visit: Hypotension, unspecified hypotension type (Primary) Upper respiratory tract infection, unspecified type Due to patient being hypotensive I felt it was best he report to the ER for further workup. Etiology may be from unnecessary blood pressure medication, although I am not able to confirm this. Discussed that he likely needs IV fluids and lab work to attempt to find the etiology. Patient was agreeable to this plan and will report to [facility] immediately. Roberta Warren PA-C Advanced Practice Provider [facility] documented in this encounter [facility] Work Phone: 02-21-2024 Telephone encounter Note Danette could you see the above message and pend me an order for novolog on this patient. Thanks [facility] 02-21-2024 Miscellaneous Notes Danette could you see the above message and pend me an order for novolog on this patient. Thanks Alternative requested for aspart. Insurance prefers Novolog. documented in this encounter [facility] 02-21-2024 Telephone encounter Note Alternative requested for aspart. Insurance prefers Novolog. [facility] 01-04-2024 Telephone encounter Note After conversation with regarding "testing and high BG readings without symptoms." Discovered test strips were out dated by years." New rx for meter and strips given. With instructions to start apolinar for more accurate readings. [facility] 01-04-2024 Miscellaneous Notes After conversation with regarding "testing and high BG readings without symptoms." Discovered test strips were out dated by years." New rx for meter and strips given. With instructions to start apolinar for more accurate readings. documented in this encounter [facility] 12-25-2023 Telephone encounter Note Pt stated that he just picked up insulin and has no readings . Will call office back Monday with readings [facility] 12-25-2023 Miscellaneous Notes Pt stated that he just picked up insulin and has no readings . Will call office back Monday with readings LVM to called office Please call and see if you can get any current BG readings from him Calling with BG of 509 per lab today. Is taking 16 units of Lantus q am and Jardiance. BG was 200-300's for the past few days.Per Dr Baptiste increase Lantus to 20 units and start sliding scale low dose of Humalog with breakfast and supper meal. To call in readings at the end of the week for more adjustments. Explained these changes carefully 2 x to two different ladies. documented in this encounter [facility] 12-25-2023 Telephone encounter Note LVM to called office [facility] 12-25-2023 Telephone encounter Note Please call and see if you can get any current BG readings from him [facility] 12-19-2023 Telephone encounter Note Calling with BG of 509 per lab today. Is taking 16 units of Lantus q am and Jardiance. BG was 200-300's for the past few days.Per Dr Baptiste increase Lantus to 20 units and start sliding scale low dose of Humalog with breakfast and supper meal. To call in readings at the end of the week for more adjustments. Explained these changes carefully 2 x to two different ladies. [facility] 12-19-2023 Miscellaneous Notes Calling with BG of 509 per lab today. Is taking 16 units of Lantus q am and Jardiance. BG was 200-300's for the past few days.Per Dr Baptiste increase Lantus to 20 units and start sliding scale low dose of Humalog with breakfast and supper meal. To call in readings at the end of the week for more adjustments. Explained these changes carefully 2 x to two different ladies. documented in this encounter [facility] 12-19-2023 History of Present illness Narrative Images from the original note were not included. NEW Patient Visit BHUMIKA Lin DPM Patient Name: Stevo Elizalde. . Date of : 1950, 73 y.o.. Gender: male. Subjective: Patient is a pleasant 73-year-old male who presents to clinic today for comprehensive diabetic foot check. Patient has seen a foot doctor many years ago but is not in recent years. Patient has multiple medical comorbidities and has followed with the vascular team some number of years ago. Patient has not had a follow-up in recent years. Patient is a current every day half a pack a day smoker. He is present today in a wheelchair but does relate he is ambulatory. He does admit to some pain in his calves when he walks for duration of time. Patient never had any stenting to his legs but did have a procedure for stenting to his carotid artery. Patient's most recent hemoglobin A1c is 8.6. Patient relates that this is quite high for him. He denies any numbness burning or tingling to his feet. He denies any current fever, chills, nausea, vomiting, chest pain calf pain or shortness of breath outside of his baseline. Patient has no other pedal complaints at this time. Past Medical History: Diagnosis Date Arthritis Carotid artery occlusion CKD (chronic kidney disease) Stage III Closed displaced intertrochanteric fracture of right femur ([facility]) 03/08/2021 Closed fracture of left orbital floor ([facility]) 06/10/2020 Closed fracture of multiple ribs of left side 06/10/2020 COPD (chronic obstructive pulmonary disease) ([facility]) Diabetes mellitus ([facility]) TYPE 2 Essential tremor Fall down stairs 04/14/2020 History of pneumonia Hyperlipidemia Hypertension Left carotid artery stenosis 03/30/2016 Leg cramps Leg heaviness MGUS (monoclonal gammopathy of unknown significance) Peptic ulcer disease PVD (peripheral vascular disease) ([facility]) Rhabdomyolysis 2010 Statin intolerance 04/01/2019 ??? Rhabdomyolysis in past. Stroke ([facility]) 2010 R side Past Surgical History: Procedure Laterality Date carotid angio 2010 HAND SURGERY Right 2009 IM NAILING FEMUR Right 04/07/2021 Procedure: RIGHT TFN; Surgeon: Dylon Galindo MD; Location: Main OR; Service: Orthopedic MT TEAEC W/PATCH GRF CAROTID VERTB SUBCLAV NECK INC Right 2009 SHOULDER OPEN ROTATOR CUFF REPAIR Left 2014 Social History Socioeconomic History Marital status: Occupational History Occupation: Disability Comment: [employer] Tobacco Use Smoking status: Every Day Packs/day: 0.50 Years: 55.00 Additional pack years: 0.00 Total pack years: 27.50 Types: Cigarettes Smokeless tobacco: Never Tobacco comments: Former 3-4 ppd 40 years Vaping Use Vaping Use: Never used Substance and Sexual Activity Alcohol use: Yes Comment: occasional Drug use: No Social History Narrative Pets: cat Positive PPD- 1976 Lives in two story home, takes care of mother in law. All ADL on one story, upstairs to go outside of home. Cane use. Social Determinants of Health Financial Resource Strain: Low Risk (02/28/2023) Overall Financial Resource Strain (CARDIA) Difficulty of Paying Living Expenses: Not hard at all Food Insecurity: No Food Insecurity (02/28/2023) Hunger Vital Sign Worried About Running Out of Food in the Last Year: Never true Ran Out of Food in the Last Year: Never true Transportation Needs: No Transportation Needs (02/28/2023) PRAPARE - Transportation Lack of Transportation (Medical): No Lack of Transportation (Non-Medical): No Physical Activity: Inactive (02/28/2023) Exercise Vital Sign Days of Exercise per Week: 0 days Minutes of Exercise per Session: 0 min Stress: No Stress Concern Present (02/28/2023) [place] [employer] - Occupational Stress Questionnaire Feeling of Stress : Only a little Social Connections: Moderately Isolated (02/28/2023) Social Connection and Isolation Panel [NHANES] Frequency of Communication with Friends and Family: More than three times a week Frequency of Social Gatherings with Friends and Family: Once a week Attends Restorationism Services: Never Active Member of Clubs or Organizations: No Attends Club or Organization Meetings: Never Marital Status: Housing Stability: Low Risk (02/28/2023) Housing Stability Vital Sign Unable to Pay for Housing in the Last Year: No Number of Places Lived in the Last Year: 1 Unstable Housing in the Last Year: No Physical Examination: BP 105/61 (BP Location: Right arm, Patient Position: Sitting, BP Cuff Size: Adult) Pulse 79 Temp 98.4 F (36.9 C) (Infrared) General Appearance: Alert, cooperative, no distress, appears stated age. Podiatric Exam Vascular: DP and PT pulses are nonpalpable. CFT is brisk to exposed digits. Absent hair growth the bilateral feet. Skin temperature is warm to cool from proximal tibial tuberosity to distal digits. Neurological: Epicritic and protopathic sensation intact to bilateral lower extremities. Dermatologic: Skin is diffusely xerotic and flaky. Patient does have superficial abrasions noted to bilateral lower extremities from itching. No erythema discharge or malodor. Nails 1-3 4 5 on the left and 1-3 4 5 on the right are elongated dystrophic with evidence of subungual debris. Upon debridement these are quite brittle as well. Musculoskeletal: Bilateral foot and ankle overall rectus alignment. Muscle strength testing 5 out of 5 all tested muscular. Ankle range of motion limited with knee extended and slightly increased knee flexed. Diagnoses: 1. Diabetic foot ([facility]) Segmental Doppler Lower Extremity Arterial 2. PVD (peripheral vascular disease) ([facility]) Segmental Doppler Lower Extremity Arterial 3. Type 2 diabetes mellitus with stage 3b chronic kidney disease, with long-term current use of insulin ([facility]) Segmental Doppler Lower Extremity Arterial 4. Claudication of lower extremity ([facility]) Segmental Doppler Lower Extremity Arterial 5. Tobacco use Segmental Doppler Lower Extremity Arterial 6. Xerosis of skin Segmental Doppler Lower Extremity Arterial 7. Onychodystrophy Segmental Doppler Lower Extremity Arterial 8. Onychomycosis 9. Toe pain, bilateral Imaging: Not indicated for today's visit. Assessment/Plan: Patient was seen and evaluated. Discussed all clinical findings. Educated patient on etiology and pathophysiology associated with various foot maladies. Discussed various treatment options available to patient. We will acquire updated noninvasive vascular studies as he has had increased intermittent claudication type pain. With regards to diffuse the xerosis and itching to his legs we will order some triamcinolone for patient to use over the course of the next couple weeks and as needed for when her itch. Rx for ammonium lactate for general hydration to the feet. Educated patient on this and not to apply to the interdigital spaces. Rx for diabetic shoes with custom inserts. Given patient's peripheral vascular disease he will greatly benefit from this. Discussed possible treatment options with regards to patient's fungal toenails. Patient will is elected to move forward with mechanical debridement. Procedure:After timeout consent was performed, and alcohol prep, sharply debrided and debulked in height and length 10 onychomycotic nails with a sharp around nail nippers consistent with a q8 modifier. Low medical complexity decision making based on her arterial disease separate than her nail care. Follow-up in 3 months for nail care This note was partially created using voice recognition software and is inherently subject to errors including those of syntax and "sound-alike" substitutions which may escape proofreading. In such instances, original meaning may be extrapolated by contextual derivation. BHUMIKA Lin DPM Podiatric Foot & Ankle Surgery documented in this encounter [facility] 12-14-2023 Evaluation + Plan note Associated Problem(s): Non-pressure chronic ulcer of other part of right foot with fat layer exposed (CMS/HCC) Doing fine and stable with current management, continue same HAS F/U WITH TRAIN DISPATCHER. [facility] Work Phone: 12-14-2023 Evaluation + Plan note Associated Problem(s): Vascular myelopathies (CMS/HCC) stable with current management, continue same [facility] Work Phone: 12-14-2023 Evaluation + Plan note Associated Problem(s): Depression, major, in remission (CMS/HCC) Doing fine and stable with current management, continue same [facility] Work Phone: 12-14-2023 Evaluation + Plan note Associated Problem(s): Thoracic aortic aneurysm (TAA) (CMS/HCC) Doing fine and stable with current management, continue same [facility] Work Phone: 12-14-2023 Evaluation + Plan note Associated Problem(s): Stage 3b chronic kidney disease (CMS/HCC) Doing fine and stable with current management, continue same HAS HAND GRINDER F/U. [facility] Work Phone: 12-14-2023 Miscellaneous Notes Associated Problem(s): Non-pressure chronic ulcer of other part of right foot with fat layer exposed (CMS/HCC) Doing fine and stable with current management, continue same HAS F/U WITH TRAIN DISPATCHER. Associated Problem(s): Vascular myelopathies (CMS/HCC) stable with current management, continue same Associated Problem(s): Depression, major, in remission (CMS/HCC) Doing fine and stable with current management, continue same Associated Problem(s): Thoracic aortic aneurysm (TAA) (CMS/HCC) Doing fine and stable with current management, continue same Associated Problem(s): Stage 3b chronic kidney disease (CMS/HCC) Doing fine and stable with current management, continue same HAS HAND GRINDER F/U. documented in this encounter [facility] Work Phone: 12-14-2023 History of Present illness Narrative Subjective Patient ID: Stevo Elizalde is a 73 y.o. male who presents for Follow-up (GENERAL CHECK UP. WANTS THERAPY). HPI RECURRENT FALLS ,MUSCLE WEAKNESS .WONDERS IF CAN HAVE PHYSICAL TX AT HOME. Review of Systems Constitutional: Positive for fatigue. Negative for chills and fever. HENT: Negative. Negative for congestion, postnasal drip and rhinorrhea. Eyes: Negative. Negative for visual disturbance. Respiratory: Negative for cough, shortness of breath and wheezing. Cardiovascular: Negative. Negative for chest pain, palpitations and leg swelling. Gastrointestinal: Negative. Negative for abdominal distention, abdominal pain, constipation, diarrhea, nausea and vomiting. Endocrine: Negative. Genitourinary: Negative for dysuria and urgency. Musculoskeletal: Negative. Negative for back pain. Skin: Negative. Negative for rash. Allergic/Immunologic: Negative for immunocompromised state. Neurological: Positive for weakness. Negative for dizziness, light-headedness and headaches. Psychiatric/Behavioral: Negative. Negative for agitation. Objective Physical Exam Constitutional: General: He is not in acute distress. HENT: Head: Normocephalic. Nose: Nose normal. Mouth/Throat: Mouth: Mucous membranes are moist. Eyes: Conjunctiva/sclera: Conjunctivae normal. Pupils: Pupils are equal, round, and reactive to light. Cardiovascular: Rate and Rhythm: Normal rate and regular rhythm. Pulses: Normal pulses. Heart sounds: Normal heart sounds. Pulmonary: Effort: No respiratory distress. Breath sounds: No wheezing. Chest: Chest wall: No tenderness. Abdominal: General: Abdomen is flat. Bowel sounds are normal. Palpations: Abdomen is soft. Tenderness: There is no abdominal tenderness. Musculoskeletal: General: No tenderness. Normal range of motion. Cervical back: Normal range of motion. Lymphadenopathy: Cervical: No cervical adenopathy. Skin: General: Skin is warm and dry. Findings: No rash. Neurological: General: No focal deficit present. Mental Status: He is alert. Mental status is at baseline. Comments: 3/5 STRENGTH IN BOTH LEGS Psychiatric: Mood and Affect: Mood normal. Behavior: Behavior normal. Assessment/Plan 1. Hypertension associated with type 2 diabetes mellitus (CMS/HCC) 2. Type 2 diabetes mellitus with other circulatory complication, with long-term current use of insulin (CMS/HCC) Dexcom G6 Sensor device Dexcom G6 Transmitter device Comprehensive Metabolic Panel Hemoglobin A1C 3. Gait difficulty Referral to Home Health 4. Muscle weakness of lower extremity Referral to Home Health 5. Recurrent falls Referral to Home Health 6. Centrilobular emphysema (CMS/HCC) nebulizer and compressor device nebulizers (VixOne Nebulizer-Adult Mask) [facility] [place] 7. Screening for prostate cancer Prostate Specific Antigen, Screen 8. Hypertriglyceridemia Lipid Panel 9. Anemia, unspecified type CBC and Auto Differential 10. Non-pressure chronic ulcer of other part of right foot with fat layer exposed (CMS/HCC) 11. Vascular myelopathies (CMS/HCC) 12. Depression, major, in remission (CMS/HCC) 13. Thoracic aortic aneurysm without rupture, unspecified part (CMS/HCC) 14. Stage 3b chronic kidney disease (CMS/HCC) 15. Stable angina pectoris 16. Calculus of gallbladder without cholecystitis without obstruction ALL ASSESSED CHRONIC CONDITIONS ARE STABLE OR ADDRESSED. 1800 [address] ADA HGA1C GOAL LESS THAN 7 LOSE WT EXERCISE DAILY. ADVISED FOR FALL PRECAUTION. MONITOR BP GOAL BP LOWER THAN 130/80 LOW SALT WILL DO PHYSICAL TX BY HOME HEALTH. MDM 1) COMPLEXITY: 1 UNDIAGNOSED NEW PROBLEM WITH UNCERTAIN PROGNOSIS 2)DATA: TESTS INTERPRETED AND OR ORDERED, TOOK INDEPENDENT HISTORY OR RECORDS REVIEWED 3)RISK: MODERATE RISK DUE TO NATURE OF MEDICAL CONDITIONS/COMORBIDITY OR MEDICATIONS ORDERED OR SURGICAL OR PROCEDURE REFERRAL, . 2 MON documented in this encounter [facility] Work Phone: 10-18-2023 Instructions Fior Forbes CNP - 10/18/2023 1:09 PM EST Call the office with Blood sugar readings in 1 week for dose adjustments to your insulin, if needed. The goal hemoglobin A1C is 7%-8%, closer to 7%, which is an average BG of 150 Please call the office sooner for episodes of hypoglycemia, BG < 70. Please remember to check your blood sugar 2-3x per day. Bring your blood sugar meter with you to appointments for review/download. It is important for us to prove you are checking your blood sugar, in order for us to renew/prescribe testing supplies. *Get updated labs done prior to your follow up appointment with us. If you do not get updated labs done, that are requested, please consider rescheduling your appointment until those are done * Dose adjustments: Lantus insulin 16units every morning Jardiance 10mg oral daily documented in this encounter [facility] 10-18-2023 History of Present illness Narrative Images from the original note were not included. Patient ID: Stevo Elizalde is a 73 y.o. male 1950 Subjective: Stevo Elizalde presents for evaluation of Type 2 diabetes Patient has had diabetes for 16 years. Diagnosed in 2004 Patient has taken Insulin for 10-11 years. Patient has been following with Dr. Carmelita MD. Metformin stopped due to CRI. Mr. Elizalde is a 73-year-old male patient that presents today for follow-up in regards to his type 2 diabetes. Patient currently takes basal insulin, he states that he checks blood sugars approximately once daily. Glucometer reviewed today. Hemoglobin A1c has remained stable at 8.6%. He was started on jardiance by his PCP since his last visit with us. Outpatient Medications Marked as Taking for the 10/18/23 encounter (Office Visit) with Fior Forbes CNP: acetaminophen (TYLENOL) 325 MG tablet, Take 2 (two) tablets (650 mg total) by mouth as needed for pain . aspirin 81 MG EC tablet, Take 1 (one) tablet (81 mg total) by mouth daily . atorvastatin (LIPITOR) 20 MG tablet, Take 1 (one) tablet (20 mg total) by mouth daily . calcium-vitamin D (OS-SHELDON +D) 500 mg-5 mcg (200 unit) per tablet, Take 1 (one) tablet by mouth 2 (two) times a day with meals . clopidogreL (PLAVIX) 75 mg tablet, Take 1 (one) tablet (75 mg total) by mouth daily . famotidine (PEPCID) 20 MG tablet, Take 1 (one) tablet (20 mg total) by mouth 2 (two) times a day . fenofibrate (TRICOR) 145 MG tablet, Take 1 (one) tablet (145 mg total) by mouth daily Give with food . fluticasone propion-salmeteroL (ADVAIR DISKUS) 500-50 mcg/dose diskus inhaler, Inhale 1 (one) puff 2 (two) times a day . isosorbide mononitrate (IMDUR) 30 MG 24 hr tablet, Take 2 (two) tablets (60 mg total) by mouth daily . Jardiance 10 mg Tab, Take 1 (one) tablet (10 mg total) by mouth daily . loratadine (CLARITIN) 10 mg tablet, Take 1 (one) tablet (10 mg total) by mouth daily as needed for allergies . omcyfqrs-hadh-SD-calcium-mins 9 mg iron-400 mcg Tab, Take 1 (one) tablet by mouth daily . nitroGLYCERIN (NITROSTAT) 0.4 MG SL tablet, Place 1 (one) tablet (0.4 mg total) under the tongue every 5 (five) minutes as needed for chest pain . pantoprazole (PROTONIX) 40 MG tablet, Take 1 (one) tablet (40 mg total) by mouth daily Start: 04/13/21. primidone (MYSOLINE) 50 MG tablet, Take 2 (two) tablets (100 mg total) by mouth nightly . propranoloL (INDERAL LA) 120 MG 24 hr capsule, Take 1 (one) capsule (120 mg total) by mouth daily . sodium bicarbonate 650 MG tablet, Take 2 (two) tablets (1,300 mg total) by mouth 2 (two) times a day . tamsulosin (FLOMAX) 0.4 mg capsule, Take 1 (one) capsule (0.4 mg total) by mouth daily . tiotropium (SPIRIVA) [address] capsule, Place 1 (one) capsule (18 mcg total) into inhaler and inhale daily . Ventolin HFA 90 mcg/actuation inhaler, USE 2 PUFFS EVERY 6 HOURS FOR SHORTNESS OF BREATH OR WHEEZING. [DISCONTINUED] Lantus Solostar U-100 Insulin 100 unit/mL (3 mL) InPn, Inject 16 (sixteen) Units under the skin 2 (two) times a day . Review of Systems: Review of Systems Constitutional: Positive for fatigue. Negative for unexpected weight change. HENT: Negative for trouble swallowing. Eyes: Negative for visual disturbance. Respiratory: Positive for shortness of breath (chronic). Negative for cough. Cardiovascular: Negative for chest pain and leg swelling. Gastrointestinal: Negative for abdominal pain, constipation, diarrhea, nausea and vomiting. Endocrine: Negative for polydipsia, polyphagia and polyuria. Genitourinary: Negative for frequency and urgency. Musculoskeletal: Positive for arthralgias. Negative for back pain. Skin: Negative for wound. No rash, reports generalized pruritis. Legs, arms, feet, etc Neurological: Positive for tremors (per baseline), weakness and numbness. Negative for headaches. Psychiatric/Behavioral: Negative for agitation and sleep disturbance. The patient is not nervous/anxious. The following portions of the patient's history were reviewed and updated as appropriate: allergies, current medications, past family history, past medical history, past social history, past surgical history and problem list. Objective: BP 135/83 Pulse 88 Wt 67.4 kg (148 lb 9.6 oz) BMI 23.98 kg/m Wt Readings from Last 3 Encounters: 10/18/23 67.4 kg (148 lb 9.6 oz) 10/11/23 67.1 kg (148 lb) 07/12/23 68.5 kg (151 lb) Physical Exam: General: alert, appears stated age and cooperative Eyes: conjunctivae/corneas clear. PERRL, EOM's intact. Neck: no adenopathy, supple, symmetrical, trachea midline. Thyroid: No thyromegaly appreciated Lung: clear to auscultation bilaterally Heart: regular rate and rhythm, S1, S2 normal, no murmur, click, rub or gallop Extremities: extremities normal, atraumatic, no cyanosis or edema Feet: Dry skin,right 2nd toe with scabbed area noted, previous ulcer to that toe had been healed. No significant redness/drainage or swelling noted. Bilateral Feet: warm, good capillary refill and normal DP. Monofilament exam Normal , bilateral lower extremities. Neuro: normal without focal findings, mental status, speech normal, alert and oriented x3 and CHERYL Laboratory Review: BP 135/83 Pulse 88 Wt 67.4 kg (148 lb 9.6 oz) BMI 23.98 kg/m 10/11/2023 Hemoglobin A1c 8.6% Creatinine 1.85 GFR 38 AST 14 ALT 27 10/04/22 *labs reviewed 10/18/23 Hgb A1c: 7.9% Creat: 1.91; eGFR: 37 AST: 20; ALT: 28 K: 4.6 CBC: WBC:7.93; Hgb: 11.7; Hct: 33.7; Plt: 262 Tchol: 178; Tri ; HDL: 46 ; LDL: 59 TSH: 2.97 ; FreeT4: 0.8 Microalbumin/creatinine Ratio: 05/12/2022 Hemoglobin A1c 6.9% Creatinine 1.82, estimated GFR 39, K4.6 AST 21, ALT 25 12/14/2021 Hemoglobin A1c 7.2% Creatinine 1.62, estimated GFR 42, K4.3 AST 20, ALT 30 T cholesterol 216, TG 247, HDL 39, LDL 128 TSH 2.51, free T4: 0.9 Microalbumin/creatinine ratio: 213 08/03/21 Hgb A1c: 5.9% 05/09/21 Creat: 1.57; eGFR: 43 K: 4.4 CBC: WBC:7356; Hgb: 8.6; Hct: 26.4.; Plt: 265 07/28/2020 Hemoglobin A1c: 5.9% Creat: 1.68, eGFR: 40 K: 4.6 AST: 20, ALT: 24 Tot chol: 178, T, HDL: 40, LDL: 75 WBC: 5.30, Hgb: 13.6, Hct: 39.6, Plt: 170 TSH: 1.07, Free T4: 1.0 Micro/creat: 380 Assessment/Plan: Dx: 1. Type 2 diabetes mellitus with stage 3b chronic kidney disease, with long-term current use of insulin (HCC) Lantus Solostar U-100 Insulin 100 unit/mL (3 mL) InPn Comprehensive Metabolic Panel Hemoglobin A1c Microalbumin/Creatinine Ratio, UR Random T4, Free TSH 2. Dyslipidemia Lipid Panel 3. Essential hypertension Type 2 diabetes, under fair control Currently taking: Lantus insulin: 12 units at breakfast; 0 units at bedtime Jardiance 10 mg oral daily Current Hemoglobin A1C= Lab Results Component Value Date HGBA1C 8.6 (H) 10/11/2023 HGBA1C 8.8 (H) 07/10/2023 HGBA1C 7.9 (H) 10/04/2022 Weight trend: is stable Current diet: carb controlled Current exercise: none Current monitoring regimen: home blood tests - 1 times daily Home blood sugar records: See scanned readings Any episodes of hypoglycemia? None as of recently NOTES: Retinopathy: Negative Exam within last 12 months: yes Refund Specialist/Technical Editor: [facility] Other Ophthalmologic Conditions: S/P Right cataract extraction with IOLI and S/P Left cataract extraction with IOLI Nephropathy: Positive -- Creatinine 1.85 GFR 38 10/11/[address] Clif Cheung every 6 months Lab Results Component Value Date CREATININE 1.85 (H) 10/11/2023 EXTEGFR >=60 09/19/2018 EXTEGFRAFAME >=60 09/19/2018 Microalbumin/creatinine ratio: 213 Is patient on MADELYN inhibitor or angiotensin II receptor danny? no Peripheral Neuropathy: Positive Reports bilateral numbness and tingling in feet, Stable from previous, currently taking Lyrica 75 mg 2 times daily Autonomic Neuropathy: Negative Hypoglycemia unawareness. Senses low BG at <80 mg/dl. Other: Hyperlipidemia: Positive Currently taking: atorvastatin and fenofibrate. LFT's WNL Plan: Patient was instructed to consume a heart healthy low-cholesterol diet Hypertension: Positive. Currently taking: propanolol BP: 135/83 Cardiac: Positive on Isosorbide Experiencing chest pain No . Experiencing shortness of breath No History of CAD, PVD Follows routinely with: Dr. Herrera, Biannual follow-up, saw RESEARCH MICROBIOLOGIST 07/12/2023 Respiratory: Positive History of COPD, continues to smoke 1 ppd. Previously followed with Dr. Jesus Cruz, will be seeing Dr. Michele or [facility]. Vascular: Positive History of CVA 2009 Feet: 10/18/2023 Follows with Podiatry: No Decision Science Analyst: History of foot ulceration: Yes. Right 4thrd toe. Will be seeing podiatry soon, going to call with an appointment, with Dr Patel History of amputation: No right 2nd toe with scabbed area noted, previous ulcer to that toe had been healed. No significant redness/drainage or swelling noted. Thyroid: Lab Results Component Value Date TSH 2.97 10/04/2022 Negative Other: Follows with Dr. Dewitt for chronic anemia. Right hip fracture, repair with TFN nail 04/07/21. Diagnosed with Parkinsons disease. Chronic tremor and difficulty ambulating. Plan: 1. Rx changes: Continue current regimen Lantus insulin 16 units every morning Jardiance 10 mg oral daily Patient was advised to make sure he is checking his blood sugar not only in the morning but in the evening prior to supper. We may need to make some adjustments to his medication regimen based on his evening readings. He was reminded his goal hemoglobin A1c is between 7-8% closer to 7%. 2. Education: Reviewed ABCs of diabetes management (respective goals in parentheses): A1C (7.0-8.0), blood pressure (<130/80), and cholesterol (LDL <100). 3. Compliance at present is estimated to be fair. Efforts to improve compliance (if necessary) will be directed at increased exercise and regular blood sugar monitorin times daily. Also, will be directed at dietary modifications: Limit portion sizes and Limit starches, carbohydrates and concentrated sugar sources 4. Follow up: 4 months 5. Record blood sugar readings as instructed. Call if BG consistently <70 or >250. [phone] Patient has been checking blood glucoses 2 times daily for the past 90 days. Patient needs to continue checking blood glucoses 2 times daily. Blood glucose readings are used to adjust medication or insulin doses for meals, monitor dietary compliance, and adjust for high or low blood glucoses by patient on a daily basis. Blood glucose readings are reviewed at office visits for adjustment in medication regimen and assistance with dietary management, and other self-management issues including exercise, etc. Prognosis: Good. Duration of need for diabetes testing equipment: Permanent #150 strips/month prescribed. 6. Bring blood sugar meter to follow up appointment. Orders Placed This Encounter Procedures Comprehensive Metabolic Panel Lipid Panel Hemoglobin A1c Microalbumin/Creatinine Ratio, UR Random T4, Free TSH Electronically signed by Fior BAIRES 231:00 PM documented in this encounter [facility] 10-11-2023 Instructions Deshaun Rodrigues MD - 10/11/2023 1:23 PM EST Mr. Elizalde, We are going to get that CLIFFORD scan we talked about last time before we make any changes to help the tremors. Keep everything else the same for now. I did put a referral in for a barrel marker here in our office building to check the foot. It was a pleasure taking care of you, and we all wish you the best of health. For concerns regarding medicines, adjusting doses or other questions: Call : [phone] (direct phone line to neurology staff) - leave a message if no one is available. (Note that [phone] is still listed on most of our paperwork and is a general line to the call pool in [place]; the number above is a faster way to get in touch with our staff here in [place]) Marcyt Ramsey - the best way to send messages directly to your doctors, or request Drug Refills. Call [phone] to set up [employer] on your smart phone or computer. Mailing Address: Attn: Dr. Deshaun Rodrigues [id number], [place] [address] Our documented in this encounter [facility] 10-11-2023 History of Present illness Narrative Neurology Follow Up Note [facility] Date of Service: 10/11/23 Service Type: Follow up, neurology Patient: Stevo Elizalde Date of : 1950 (73 y.o.) PCP: Phyllis Mae MD ASSESSMENT: Stevo Elizalde is a 73 y.o. man who presents for follow up of possible seizure episodes, tremor, and memory loss Seizure-like episodes: Reportedly had 2 lifetime possible seizures. One was just after a stroke, 10-15 years ago; the circumstances were unclear but it sounds like he was in severe renal failure at that time and was in the ICU for several weeks on sedation so it could well have been provoked. Was never placed on AED at that time. He was referred to me after another more recent episode where he had intense coughing, followed by transient decreased responsiveness and generalized low-amplitude shaking lasting 20 seconds without any incontinence, oral trauma, or post-ictal period. This sounds much more consistent with cough syncope rather than seizure. He has not had one since he started seeing me so we will just monitor. Tremor: His main concern is tremor. He has tremors of both hands and the head stretching back a few years now. His tremors initially were predominantly essential tremor in pattern but over time he has developed more parkinsonian features. His exam is clouded somewhat by other issues (stroke, prior fractures, peripheral neuropathy, etc) so we are going to obtain a CLIFFORD scan before starting treatment to avoid unnecessary polypharmacy. We opted previously to try using essential tremor meds to help. He has failed propranolol at an adequate dose. Primidone did help the action tremor component which may be why the resting tremor portion is more noticeable now. We could consider gabapentin, which may also help with his chronic pain. Will continue the primidone for now pending CLIFFORD scan results. Mild cognitive impairment: His is concerned about worsening memory. This is likely from combination of polypharmacy, prior heavy alcohol use, and chronic pain, but a component of additional neurodegenerative pathology is not impossible. Testing has thus far been consistent with mild cognitive impairment rather than full dementia; we will continue to monitor. Given concerns for polypharmacy, and lack of impairment in function from the memory issues, holding off on cholinesterase inhibitor for now. History of stroke/carotid stenosis: He has generally recovered from prior stroke. Is on DAPT and statin appropriately. Follows with Dr. Munguia for carotid stenosis. Neuropathy: Mild to moderate painless peripheral neuropathy which is likely multifactorial from prior heavy alcohol use, diabetes, and renal disease. Stable; likely contributes to imbalance. He does note an ulcer on the right 2nd toe which is currently healing but was at one point very swollen and bad enough his took him to the ER thinking it might have gangrene. It is doing better but his requested a referral to podiatry which is reasonable. Problems addressed in this visit: 1. Atypical parkinsonism 2. Diabetic polyneuropathy associated with type 2 diabetes mellitus (HCC) 3. Essential tremor 4. Mild cognitive impairment PLAN: Medication changes: primidone 100mg nightly. No other new meds for now Labs: none Imaging: CLIFFORD scan Other: podiatry referral Follow Up: 6 months in person, will discuss CLIFFORD scan results with them when test is done Attestation: Discussed risks, benefits and alternatives regarding treatment options, and diagnoses with Mr Elizalde and his and daughter. Answered questions and we discussed plan at length. I independently reviewed past history, previous clinic notes, lab results, allergies, medications and radiology images which are summarized in this note with annotations wherever appropriate. Time statement: A total of 41 minutes were spent on this encounter. This includes the following patient-centered activities: 1. Preparation for patient's visit (reviewing previous chart, current medical records, previous history, exam, test, procedure, and medications) 2. Face to face encounter obtaining history from the patient/family/caregivers; performing evaluation and examination; ordering medications, tests, or procedures; referring and communicating with other healthcare professionals; counseling and education of the patient/family/caregiver; independently interpreting results (tests, labs, procedures, imaging) and communicating and explaining results to the patient/family/caregiver 3. Coordination of care; preparing and printing discharge instruction and any educational material for the patient and caregivers. Documenting clinical information in the electronic and other health records. Reviewing OARRS as needed. Deshaun Rodrigues MD Staff Neurologist [facility] [address], [id number], [facility] [address] [facility] Fax: [phone] 10/11/23 Subjective Chief Complaint/Reason for Consult: seizure Informant(s): self, Initial History of Present Illness 06/16/22: Stevo Elizalde is a 73 y.o. man who reports a pertinent history of stroke (2009), prior alcoholism, COPD, CKD, T2DM, ?essential tremor, carotid stenosis, HTN, and HLD, who presents to the office today for seizure-like episode. Spell vs seizure: reports that he had one seizure 10-15 years ago after a small stroke. He cannot recall the circumstances or the semiology exactly, however he was hospitalized at the time for renal failure and was unresponsive for 13 days according to his who says it was a miracle he woke up. I am unclear what the seizure had to do with this exactly but he was never placed on antiepileptics at that time. He was seizure free after this until he had an episode on 05/24/22. He was sitting with family and started coughing severely. He briefly lost awareness and had generalized shaking lasting less than 20 seconds followed by immediate return to full awareness. No incontinence, no oral trauma. He has had similar smaller events, always due to severe coughing, but those previous ones were usually only a couple seconds long. No issues since that episode; he was given Keppra by the ED but never took it. Tremor: major complaint is tremor. He has a tremor of both hands going back several years which is steadily worsening. It also involves the head. It is predominantly bothersome when he is eating or writing; his has to do the writing for him now. He has a history of prior stroke in 2009 or so, with no significant residual deficits. Etiology presumably due to carotid artery disease. He seemed unsure what side the stroke was on. He has a prior R hip fracture which causes significant pain; this limits his walking. He uses a cane now due to this hip pain. He is quite unsteady. Some numbness in both feet consistent with neuropathy. He has a history of prior alcohol use that was heavy at times but none recently. Does not know if alcohol affects the tremor. + tremors - presumably Parkinson's - in mother and sister. Interval history 10/11/23: Memory continues to worsen, mostly just short term/attention things. Not really that much worse, just a little decline. No falls, though balance still not great. Stable low back/neck pain and neuropathy. Tremor seems, if anything, a little better rather than worse. Unable to get CLIFFORD scan due to some insurance issues, they are going to call and set up soon now that those are fixed. No seizure like episodes or syncope. Review of Systems: All systems reviewed and negative except those documented in the History of Present Illness (HPI). Pertinent positives are documented below: See HPI Medical/Surgical/Social/Family Histories: Pertinent Family Hx: + ?Parkinson's disease in his mother and sister Social situation: former smoker and prior heavy alcohol use. Lives with . He has a past medical history of Arthritis, Carotid artery occlusion, CKD (chronic kidney disease), Closed displaced intertrochanteric fracture of right femur ([facility]) (03/08/2021), Closed fracture of left orbital floor ([facility]) (06/10/2020), Closed fracture of multiple ribs of left side (06/10/2020), COPD (chronic obstructive pulmonary disease) ([facility]), Diabetes mellitus ([facility]), Essential tremor, Fall down stairs (04/14/2020), History of pneumonia, Hyperlipidemia, Hypertension, Left carotid artery stenosis (03/30/2016), Leg cramps, Leg heaviness, MGUS (monoclonal gammopathy of unknown significance), Peptic ulcer disease, PVD (peripheral vascular disease) ([facility]), Rhabdomyolysis (2010), Statin intolerance (04/01/2019), and Stroke ([facility]) (2009). He has a past surgical history that includes Hand surgery (Right, 2008); carotid angio (2009); pr teaec w/patch grf carotid vertb subclav neck inc (Right, 2009); Shoulder open rotator cuff repair (Left, 2014); and Im Nailing Femur (Right, 04/07/2021). He family history includes Cancer in his maternal grandfather, maternal uncle, and paternal grandmother; Deep vein thrombosis in his sister; Diabetes in his sister; Heart attack in his brother, father, and sister; Heart disease in his sister and sister; Hypertension in his sister; Old age in his mother; Ovarian cancer in his sister; Stroke in his sister. He reports that he has been smoking cigarettes. He has a 55.00 pack-year smoking history. He has never used smokeless tobacco. He reports current alcohol use. He reports that he does not use drugs. Allergies: Allergies: Levofloxacin and Varenicline HOME Medications: Current Outpatient Medications Medication Instructions acetaminophen (TYLENOL) 650 mg, Oral, As needed aspirin 81 mg, Oral, Daily atorvastatin (LIPITOR) 20 mg, Oral, Daily calcium-vitamin D (OS-SHELDON +D) 500 mg-5 mcg (200 unit) per tablet 1 tablet, Oral, 2 times daily with meals clopidogreL (PLAVIX) 75 mg, Oral, Daily famotidine (PEPCID) 20 mg, Oral, 2 times daily fenofibrate (TRICOR) 145 mg, Oral, Daily, Give with food fluticasone propion-salmeteroL (ADVAIR DISKUS) 500-50 mcg/dose diskus inhaler 1 puff, Inhalation, 2 times daily isosorbide mononitrate (IMDUR) 60 mg, Oral, Daily Jardiance 10 mg Tab 1 tablet, Oral, Daily Lantus Solostar U-100 Insulin 16 Units, Subcutaneous, 2 times daily loratadine (CLARITIN) 10 mg, Oral, Daily PRN efsymxek-ucte-BR-calcium-mins 9 mg iron-400 mcg Tab 1 tablet, Oral, Daily nitroGLYCERIN (NITROSTAT) 0.4 mg, Sublingual, Every 5 min PRN pantoprazole (PROTONIX) 40 mg, Oral, Daily primidone (MYSOLINE) 100 mg, Oral, Nightly propranoloL (INDERAL LA) 120 mg, Oral, Daily sodium bicarbonate 1,300 mg, Oral, 2 times daily tamsulosin (FLOMAX) 0.4 mg, Oral, Daily tiotropium (SPIRIVA) 18 mcg, Inhalation, Daily Ventolin HFA 90 mcg/actuation inhaler USE 2 PUFFS EVERY 6 HOURS FOR SHORTNESS OF BREATH OR WHEEZING. Objective OBJECTIVE: Physical Examination: BP 105/70 (BP Location: Right arm, Patient Position: Sitting, BP Cuff Size: Adult) Pulse 75 Resp 16 Ht 5' 6" Wt 67.1 kg (148 lb) SpO2 97% BMI 23.89 kg/m GENERAL: General Appearance: In NAD HEENT: Normocephalic. No conjunctival injection. Ears appear normal. No substantial sinus drainage. See below for vision/hearing Neck: Supple, no tenderness, preserved ROM. Respiratory Effort: easily winded on exertion Extremities: No edema Skin: No rashes visualized MSK: R hip pain with limited ROM at the hip both active and passive. MENTAL STATUS: Alertness, Attention Span & Concentration: awake, alert. Serial 7s with 1 error. Counts months backward without issues Language: fluent, but with fairly significant difficulty in naming (only 2/6 correct; said "leaf" for feather, "hand" for glove, "porcupine" for cactus, and "hack" for hammock, though he later corrected that last one). Speech: Normal Orientation: Oriented to person, place, time/date, and situation Memory, Recent & Remote: 3/3 recall at 5 minutes this time without prompting. Fund of Knowledge: Normal No apraxia on simple motor tasks. CRANIAL NERVES: II - Visual Murphy: Normal II, III: Pupils: PERRL, no RAPD III, IV, : Eye Movements: Normal (EOMI, No ptosis, No nystagmus) V - Facial Sensation: Normal VII: Face Symmetry & Strength: Normal VIII - Hearing: decreased to finger rub bilaterally IX, X - Palate: Normal, elevates symmetrically XI - Shoulder Shrug: Normal XII - Tongue Protrusion: Normal, symmetric MOTOR: Muscle Strength Right Left 5 Shoulder Abduction (Deltoid) 5 5 Elbow Flexion (Biceps) 5 5 Elbow Extension (Triceps) 5 5 Wrist Flexion 5 5 Wrist Extension 5 4+ Finger Abduction (Interossei) 5 Right Left 4+ Hip Extension 5 4 Hip Flexion (Iliopsoas) 5 4+ Knee Extension (Quads) 5 4+ Knee Flexion (Hamstrings) 5 5 Dorsiflexion (Anterior Tibialis) 5 5 Plantar Flexion (Gastrocnemius) 5 Normal Bulk and Tone, no atrophy MOTOR RASMUSSEN: 5 Normal (Normal Power) 4 Mild Weakness (Movement against moderate resistance over a full range of motion) 3 Moderate Weakness (Movement against gravity only over almost full range of motion) 2 Severe Weakness (Movement with gravity eliminated over almost full range of motion) 1 Trace Movement (Contraction visible or palpable without effective movement of the joint) 0 No Movement (No contraction visible or palpable) NILESH Unable to Assess SENSATION: Fine Touch: Decreased feet bilaterally Pinprick: Decreased feet bilaterally up to ankle Proprioception: Normal Vibration: Decreased near absent at toes and decreased at ankles Temperature: Decreased feet bilaterally REFLEXES: Right Reflexes Left 1+ Biceps 1+ 1+ Triceps 1+ 1+ Brachioradialis 1+ 1+ Patellar 1+ 0 Achilles 0 Down Plantar Response (Babinski) Down REFLEXES RASMUSSEN: 4+ Sustained Clonus 3+ Brisk 2+ Normal 1+ Diminished 0 Absent NILESH Unable to Assess COORDINATION: Coordination Hlumex-qe-Vpsj: No obvious ataxia; possibly some mild intention tremor on top of existing action tremor Valdovinos Finger taps: Slightly clumsy bilaterally but worse on the left Coordination Cccw-Exne-Lbdr: Limited by hip pain STANCE AND GAIT: Base/Stance: Mildly widened base, takes several steps back on pull testing, required me to catch him the first attempt, able to correct the second try. Gait: Very irregular with antalgic gait limited by hip stiffness and weakness. Slightly decreased arm swing bilaterally. Right leg steps are much shorter than left. Gait Aid Used During Exam: Straight cane Gait Assistance Required During Exam: Significant MOVEMENT DISORDERS EXAMINATION: Tremor - The action/postural component is much improved, present in hands and head intermittently. However a pill-rolling resting tremor has become more noticeable in L>R hand. Bradykinesia - Decreased amplitude and speed of fast hand/finger movements bilaterally though without real decrement. Foot tapping and heel movements on the right limited in speed, possibly by hip pain. Rigidity - Some in the neck; the left hand now has some subtle cogwheeling with contralateral activation Dyskinesia/Choreoathetosis - None Dystonia/Myoclonus/Tics - None PRIOR TESTING: Imaging: CT head 05/24/22 shows moderate white matter changes and at least moderate generalized atrophy, well out of proportion to age but consistent with a history of heavy alcohol use. Carotid duplex 02/22/22 shows chronic R vertebral artery occlusion, prior R CEA patent, L ICA 50-69% stenosis, and an occlusion of the ostium of the left ECA with more distal reconstitution. Labs: CMP with stable CKD, Cr 1.7 (GFR 37). CBC with macrocytic anemia (Hgb 13.0), otherwise both studies unremarkable. LDL 67. Trig 509. B12 364. MMA WNL. A1c 8.8. documented in this encounter [facility] 08-22-2023 History of Present illness Narrative Subjective Patient ID: Stevo Elizalde is a 73 y.o. male who presents for Follow-up ( LABS AND REFILLS). HPI Lab (DONE LAST MONTH). MED REFILL. NEEDS FLU VACCINE TODAY. Review of Systems Constitutional: Negative for chills and fever. HENT: Negative. Negative for congestion, postnasal drip and rhinorrhea. Eyes: Negative. Negative for visual disturbance. Respiratory: Negative for cough, shortness of breath and wheezing. Cardiovascular: Negative. Negative for chest pain, palpitations and leg swelling. Gastrointestinal: Negative. Negative for abdominal distention, abdominal pain, constipation, diarrhea, nausea and vomiting. Endocrine: Negative. Genitourinary: Negative for dysuria and urgency. Musculoskeletal: Negative. Negative for back pain. Skin: Negative. Negative for rash. Allergic/Immunologic: Negative for immunocompromised state. Neurological: Negative. Negative for dizziness, weakness, light-headedness and headaches. Psychiatric/Behavioral: Negative. Negative for agitation. Objective Physical Exam Constitutional: General: He is not in acute distress. HENT: Head: Normocephalic. Nose: Nose normal. Mouth/Throat: Mouth: Mucous membranes are moist. Eyes: Conjunctiva/sclera: Conjunctivae normal. Pupils: Pupils are equal, round, and reactive to light. Cardiovascular: Rate and Rhythm: Normal rate and regular rhythm. Pulses: Normal pulses. Heart sounds: Normal heart sounds. Pulmonary: Effort: No respiratory distress. Breath sounds: No wheezing. Chest: Chest wall: No tenderness. Abdominal: General: Abdomen is flat. Bowel sounds are normal. Palpations: Abdomen is soft. Tenderness: There is no abdominal tenderness. Musculoskeletal: General: No tenderness. Normal range of motion. Cervical back: Normal range of motion. Lymphadenopathy: Cervical: No cervical adenopathy. Skin: General: Skin is warm and dry. Findings: No rash. Neurological: General: No focal deficit present. Mental Status: He is alert. Mental status is at baseline. Psychiatric: Mood and Affect: Mood normal. Behavior: Behavior normal. Assessment/Plan 1. Type 2 diabetes mellitus with hyperglycemic coma (CMS/HCC) empagliflozin (Jardiance) 10 mg 2. Hyperlipidemia, unspecified hyperlipidemia type atorvastatin (Lipitor) 20 mg tablet 3. Need for influenza vaccination Flu vaccine, quadrivalent, high-dose, preservative free, age 65y+ (FLUZONE) 4. Chronic obstructive pulmonary disease, unspecified COPD type (CMS/HCC) Spiriva with HandiHaler 18 mcg inhalation capsule DISCONTINUED: Spiriva with HandiHaler 18 mcg inhalation capsule 5. H/O: CVA (cerebrovascular accident) clopidogrel (Plavix) 75 mg tablet 6. Essential tremor primidone (Mysoline) 50 mg tablet 7. Encounter for vaccination pneumoc 20-chris conj-dip cr,PF, (Prevnar 20, PF,) 0.5 mL vaccine 8. Hypertriglyceridemia TEST RESULTS WERE DISCUSSED. 1800 SHELDON ADA HGA1C GOAL LESS THAN 7. ADVISED TO CHECK BS BID AND BRING THE LOG FOR NEXT VISIT. LOSE WT EXERCISE DAILY ADVISED TO HAVE LOW FAT AND LOW CALORIE DIET AND TO LOOSE WEIGHT, DAILY EXERCISE. WILL START JARDIANCE FOR NETTER CONTROL OF DM2. MONITOR BP GOAL BP LOWER THAN 130/80 LOW SALT EXERCISE DAILY ADVISED TO CUT BACK AND STOP THE ETOH. MDM 1) COMPLEXITY: MORE THAN 1 STABLE CHRONIC CONDITION ADDRESSED 2)DATA: TESTS INTERPRETED AND OR ORDERED, TOOK INDEPENDENT HISTORY OR RECORDS REVIEWED 3)RISK: MODERATE RISK DUE TO NATURE OF MEDICAL CONDITIONS/COMORBIDITY OR MEDICATIONS ORDERED OR SURGICAL OR PROCEDURE REFERRAL, . 1 mon documented in this encounter [facility] Work Phone: 07-12-2023 Instructions Katalina Marie MA - 07/12/2023 1:15 PM EDT How to Contact your Care Team: Provider: Dr. Aquiles Herrera MD Farmer General: Urszula Aragon RN documented in this encounter [facility] 07-12-2023 History of Present illness Narrative General Cardiology Clinic Follow up Heart & Vascular [facility] 07/12/2023 Arianna Alfaro, RN INVASIVE [address] [facility] [id number] Patient: Stevo Elizalde Date of : 1950 (73 y.o.) PCP: Phyllis Mae MD Chief Complaint: Routine follow up History of Present Illness: Stevo Elizalde is a 73 y.o. male with a PMH of CVA, seizure, CKD stage III, COPD, DM T2, HLD, HTN, PVD, carotid stenosis who follows with Dr Herrera and last saw him May 2022. At that time he was seen after his eye doctor encouraged him to follow up for noted plaque in his eye. Patient had also c/o GREEN, fatigue, atypical CP. Patient was not a good candidate for treadmill stress for he was in wheelchair and was felt to be high risk for Lexiscan nuclear stress given his recent history of seizure at that time. He had a Lexiscan nuclear back in 2019 which was negative for ischemia. Dr. Herrera increased his propranolol dosing and updated an ECHO which showed EF 59%, normal RV function, normal diastolic function. Moderate aortic valve leaflet thickening without stenosis with trace insufficiency and mild MR. He is being seen in the office today for routine follow up. Today in the office Mike presents with his . He reports doing well from a cardiovascular standpoint. He states he occasionally gets chest discomfort which he attributes to musculoskeletal versus indigestion. He states it is the same pain that he has had for years. Denies any new or worsening chest discomfort. Has not had to use any nitroglycerin. Denies any worsening SOB or GREEN, he does have COPD and unfortunately continues to smoke. He is wheezy on exam, does have a nebulizer and inhalers at home. Does not require any oxygen use. He denies any lightheadedness, dizziness, palpitations, peripheral edema, weight gain or syncope. We reviewed his most recent cardiac testing. Patient denies any acute questions or concerns on exam. Refills were sent to his pharmacy. I opted to make no changes to his regimen. See below for plan/detail. Assessment & Plan Atypical chest pain -Denies c/o significant CP -Has not had to use any Nitroglycerin -Continue Imdur, BB, DAPT, statin therapy without change -We will hold off on further testing at this time however encouraged patient to call our office should he have any new or worsening symptoms for then we could consider updating chemical stress test. Patient and in agreement with this plan. HTN -BP in office today is 119/65 -Continue Imdur, Propranolol dosing without change Mixed HLD -Continue on statin -Lipid panel from June 2023 showed Total cholesterol 150, triglycerides 509, HDL 43, LDL 67 -Increase fenofibrate dose to 145 mg daily -Encourage diet modifications to improve triglyceride level Hx CVA, PVD/carotid artery stenosis -On DAPT and statin therapy -Follows with neuro and vascular -Denies strokelike symptoms Tremors -Being worked up for possible Parkinsonism, may have component of early dementia per neurology's recent office note -On Propranolol -Continue to follow with Neurology Smoking COPD -Patient smokes half a pack to 3/4 pack/day -We discussed smoking cessation -Patient wheezy on exam, is on several inhalers and has a nebulizer at home. Denies feeling short of breath. Management per PCP Follow-up: Dr Herrera 6 months or sooner PRN Review of Systems: All systems reviewed and are negative except for the pertinent positives stated above Physical Examination: BP 119/65 (BP Location: Left arm, Patient Position: Sitting, BP Cuff Size: Adult) Pulse 70 Ht 5' 6" Wt 68.5 kg (151 lb) SpO2 95% BMI 24.37 kg/m Constitutional: Alert in no obvious distress Head: Normocephalic and atraumatic. Eyes: Conjunctivae and EOM are normal. No scleral icterus. Neck: Normal range of motion. Cardiovascular: Normal rate and regular rhythm. Heart sounds distant but no obvious murmur. No peripheral edema. Radial pulses 2+ B/L Pulmonary/Chest: Effort normal, diffuse wheezes on expiration. O2 normal. Does not require oxygen. Abdominal: Soft. Bowel sounds are normal. There is no abdominal tenderness. Musculoskeletal: Normal range of motion. Neurological: AOx3, moving all ext. Tremors noted to upper extremities. Skin: Skin is warm and dry. No rash noted. Psychiatric: Normal mood and affect. Past Medical History: Diagnosis Date Arthritis Carotid artery occlusion CKD (chronic kidney disease) Stage III Closed displaced intertrochanteric fracture of right femur ([facility]) 03/08/2021 Closed fracture of left orbital floor ([facility]) 06/10/2020 Closed fracture of multiple ribs of left side 06/10/2020 COPD (chronic obstructive pulmonary disease) ([facility]) Diabetes mellitus ([facility]) TYPE 2 Essential tremor Fall down stairs 04/14/2020 History of pneumonia Hyperlipidemia Hypertension Left carotid artery stenosis 03/30/2016 Leg cramps Leg heaviness MGUS (monoclonal gammopathy of unknown significance) Peptic ulcer disease PVD (peripheral vascular disease) ([facility]) Rhabdomyolysis 2010 Statin intolerance 04/01/2019 ??? Rhabdomyolysis in past. Stroke ([facility]) 2010 R side Past Surgical History: Procedure Laterality Date carotid angio 2010 HAND SURGERY Right 2009 IM NAILING FEMUR Right 04/07/2021 Procedure: RIGHT TFN; Surgeon: Dylon Galindo MD; Location: Main OR; Service: Orthopedic MT TEAEC W/PATCH GRF CAROTID VERTB SUBCLAV NECK INC Right 2009 SHOULDER OPEN ROTATOR CUFF REPAIR Left 2014 Family History Problem Relation Age of Onset Heart attack Father Diabetes Sister Heart attack Sister Stroke Sister Hypertension Sister Deep vein thrombosis Sister leg Ovarian cancer Sister Heart attack Brother Other (Old age) Mother Cancer Maternal Grandfather Cancer Paternal Grandmother Cancer Maternal Uncle Heart disease Sister Heart disease Sister Breast cancer Neg Hx Social History Tobacco Use Smoking Status Every Day Packs/day: 1.00 Years: 55.00 Additional pack years: 0.00 Total pack years: 55.00 Types: Cigarettes Smokeless Tobacco Never Tobacco Comments Former 3-4 ppd 40 years Allergies: Levofloxacin and Varenicline HOME Medications: Current Outpatient Medications on File Prior to Visit Medication Sig acetaminophen (TYLENOL) 325 MG tablet Take 2 (two) tablets (650 mg total) by mouth as needed for pain . calcium-vitamin D (OS-SHELDON +D) 500 mg-5 mcg (200 unit) per tablet Take 1 (one) tablet by mouth 2 (two) times a day with meals . famotidine (PEPCID) 20 MG tablet Take 1 (one) tablet (20 mg total) by mouth 2 (two) times a day . fluticasone propion-salmeteroL (ADVAIR DISKUS) 500-50 mcg/dose diskus inhaler Inhale 1 (one) puff 2 (two) times a day . Lantus Solostar U-100 Insulin 100 unit/mL (3 mL) InPn Inject 16 (sixteen) Units under the skin 2 (two) times a day . loratadine (CLARITIN) 10 mg tablet Take 1 (one) tablet (10 mg total) by mouth daily as needed for allergies . owxaftpc-yqga-GJ-calcium-mins 9 mg iron-400 mcg Tab Take 1 (one) tablet by mouth daily . nitroGLYCERIN (NITROSTAT) 0.[address] 1 (one) tablet (0.4 mg total) under the tongue every 5 (five) minutes as needed for chest pain . pantoprazole (PROTONIX) 40 MG tablet Take 1 (one) tablet (40 mg total) by mouth daily Start: 04/13/21. primidone (MYSOLINE) 50 MG tablet Take 2 (two) tablets (100 mg total) by mouth nightly . sodium bicarbonate 650 MG tablet Take 2 (two) tablets (1,300 mg total) by mouth 2 (two) times a day . tamsulosin (FLOMAX) 0.4 mg capsule Take 1 (one) capsule (0.4 mg total) by mouth daily . tiotropium (SPIRIVA) [address] 1 (one) capsule (18 mcg total) into inhaler and inhale daily . Ventolin HFA 90 mcg/actuation inhaler USE 2 PUFFS EVERY 6 HOURS FOR SHORTNESS OF BREATH OR WHEEZING. [DISCONTINUED] aspirin 81 MG EC tablet Take 1 (one) tablet (81 mg total) by mouth daily . [DISCONTINUED] atorvastatin (LIPITOR) 20 MG tablet Take 1 (one) tablet (20 mg total) by mouth daily . [DISCONTINUED] clopidogreL (PLAVIX) 75 mg tablet Take 1 (one) tablet (75 mg total) by mouth daily . [DISCONTINUED] fenofibrate 54 MG tablet Take 1 (one) tablet (54 mg total) by mouth daily Give with food . [DISCONTINUED] isosorbide mononitrate (IMDUR) 30 MG 24 hr tablet Take 2 (two) tablets (60 mg total) by mouth daily . [DISCONTINUED] propranoloL (INDERAL LA) 120 MG 24 hr capsule TAKE 1 (ONE) CAPSULE (120 MG TOTAL) BY MOUTH DAILY . [DISCONTINUED] doxycycline hyclate (VIBRAMYCIN) 100 MG capsule Take 1 (one) capsule (100 mg total) by mouth 2 (two) times a day . (Patient not taking: Reported on 07/12/2023 .) [DISCONTINUED] PARoxetine (PAXIL) 20 MG tablet Take 1 (one) tablet (20 mg total) by mouth daily . [DISCONTINUED] predniSONE (DELTASONE) 10 MG tablet TAKE 1 (ONE) TABLET (10 MG TOTAL) BY MOUTH DAILY WITH BREAKFAST START: 03/03/23. (Patient not taking: Reported on 07/12/2023 .) No current facility-administered medications on file prior to visit. documented in this encounter [facility] 04-05-2023 Instructions Deshaun Rodrigues MD - 04/05/2023 2:57 PM EDT Mr. Elizalde, Stop the labetalol. Decrease the Paxil to half tab for 2 weeks, then stop - it can cause a withdrawal syndrome involving anxiety, shaking, confusion, or mood changes, so let me know if that is too fast of a reduction and we can adjust the wean accordingly. We are going to get a scan of your brain called a CLIFFORD scan. This can tell what is affecting people's balance. It is a CT scan, so nothing difficult. It was a pleasure taking care of you, and we all wish you the best of health. For concerns regarding medicines, adjusting doses or other questions: Call : [phone] (direct phone line to neurology staff) - leave a message if no one is available. (Note that [phone] is still listed on most of our paperwork and is a general line to the call pool in [place]; the number above is a faster way to get in touch with our staff here in [place]) [facility] [employer] - the best way to send messages directly to your doctors, or request Drug Refills. Call [phone] to set up [employer] on your smart phone or computer. Mailing Address: Attn: Dr. Deshaun Rodrigues [id number], [place] [address] Our documented in this encounter [facility] 04-05-2023 History of Present illness Narrative Neurology Follow Up Note [facility] Date of Service: 04/05/23 Service Type: Follow up, neurology Patient: Stevo Elizalde Date of : 1950 (73 y.o.) PCP: Phyllis Mae MD ASSESSMENT: Stevo Elizalde is a 73 y.o. man who presents for follow up of possible seizure episodes, tremor, and memory loss Seizure-like episodes: Reportedly had 2 lifetime possible seizures. One was just after a stroke, 10-15 years ago; the circumstances were unclear but it sounds like he was in severe renal failure at that time and was in the ICU for several weeks on sedation so it could well have been provoked. Was never placed on AED at that time. He had another more recent episode where he had intense coughing, followed by transient decreased responsiveness and generalized low-amplitude shaking lasting 20 seconds without any incontinence, oral trauma, or post-ictal period. He has had similar episodes of similar symptoms in the setting of intense coughing before but usually they are not as bad. The recent episode sounds most consistent with cough syncope. In particular the history of similar brief episodes in setting of cough, and the lack of any post-ictal period, makes epileptic seizure very unlikely. He does technically have risk factor for seizures but was not interested in AED and did not really want an MRI or EEG. He has not had one since he started seeing me so we will just monitor. Tremor: His main concern is tremor. He has tremors of both hands and the head stretching back a few years now. On exam he has an action>postural>resting tremor of both hands as well as a no-no pattern head tremor. This appears more consistent with essential tremor. There are some mixed signs of parkinsonism on exam. He has slight slowness and stiffness on the R hand, and has significant imbalance and slow gait. However these could be explained by minor findings from his prior stroke on the right side and by his right hip fracture and resultant hip pain which is clearly causing a severe impairment in his gait. He also has a history of alcoholism and has evidence of a mild peripheral neuropathy (diabetic vs renal vs alcohol-related in etiology) which can be affecting his balance. Given the mixed features we opted to try obtaining a CLIFFORD scan which may help reveal underlying parkinsonism and help guide treatment. We opted previously to try using essential tremor meds to help. He has failed propranolol at an adequate dose. Primidone did help actually. We could consider gabapentin, which may also help with his chronic pain. Will continue the primidone for now. Mild cognitive impairment: His is concerned about worsening memory. This is likely from combination of polypharmacy, prior heavy alcohol use, and chronic pain, but a component of dementia is not impossible. Testing today was consistent with mild cognitive impairment. Somehow he ended up on both labetalol and propranolol at one point, so we are going to stop the labetalol which could be contributing to excess fatigue and cognitive slowing. History of stroke/carotid stenosis: He has generally recovered from prior stroke. Is on DAPT and statin appropriately. Follows with Dr. Munguia for carotid stenosis. Neuropathy: Mild to moderate painless peripheral neuropathy which is likely multifactorial from prior heavy alcohol use, diabetes, and renal disease. Stable; likely contributes to imbalance. Problems addressed in this visit: 1. 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HCC) 2. Essential tremor 3. Cough syncope 4. Mild cognitive impairment PLAN: Medication changes: primidone 50mg nightly. STOP labetalol. Monitor BP at home. Labs: none Imaging: CLIFFORD scan Other: none Follow Up: 6 months in person, call sooner with update Attestation: Discussed risks, benefits and alternatives regarding treatment options, and diagnoses with Mr Elizalde and his and daughter. Answered questions and we discussed plan at length. I independently reviewed past history, previous clinic notes, lab results, allergies, medications and radiology images which are summarized in this note with annotations wherever appropriate. Time statement: A total of 41 minutes were spent on this encounter. This includes the following patient-centered activities: 1. Preparation for patient's visit (reviewing previous chart, current medical records, previous history, exam, test, procedure, and medications) 2. Face to face encounter obtaining history from the patient/family/caregivers; performing evaluation and examination; ordering medications, tests, or procedures; referring and communicating with other healthcare professionals; counseling and education of the patient/family/caregiver; independently interpreting results (tests, labs, procedures, imaging) and communicating and explaining results to the patient/family/caregiver 3. Coordination of care; preparing and printing discharge instruction and any educational material for the patient and caregivers. Documenting clinical information in the electronic and other health records. Reviewing OARRS as needed. Deshaun Rodrigues MD Staff Neurologist [facility] [address] [id number], [place] [phone] Clinic Fax: [phone] 04/05/23 Subjective Chief Complaint/Reason for Consult: seizure Informant(s): self Initial History of Present Illness 06/16/22: Stevo Elizalde is a 73 y.o. man who reports a pertinent history of stroke (2009), prior alcoholism, COPD, CKD, T2DM, ?essential tremor, carotid stenosis, HTN, and HLD, who presents to the office today for seizure-like episode. Spell vs seizure: reports that he had one seizure 10-15 years ago after a small stroke. He cannot recall the circumstances or the semiology exactly, however he was hospitalized at the time for renal failure and was unresponsive for 13 days according to his who says it was a miracle he woke up. I am unclear what the seizure had to do with this exactly but he was never placed on antiepileptics at that time. He was seizure free after this until he had an episode on 05/24/22. He was sitting with family and started coughing severely. He briefly lost awareness and had generalized shaking lasting less than 20 seconds followed by immediate return to full awareness. No incontinence, no oral trauma. He has had similar smaller events, always due to severe coughing, but those previous ones were usually only a couple seconds long. No issues since that episode; he was given Keppra by the ED but never took it. Tremor: major complaint is tremor. He has a tremor of both hands going back several years which is steadily worsening. It also involves the head. It is predominantly bothersome when he is eating or writing; his has to do the writing for him now. He has a history of prior stroke in 2009 or so, with no significant residual deficits. Etiology presumably due to carotid artery disease. He seemed unsure what side the stroke was on. He has a prior R hip fracture which causes significant pain; this limits his walking. He uses a cane now due to this hip pain. He is quite unsteady. Some numbness in both feet consistent with neuropathy. He has a history of prior alcohol use that was heavy at times but none recently. Does not know if alcohol affects the tremor. + tremors - presumably Parkinson's - in mother and sister. Interval history 04/05/23: Tremors improved with primidone. No new stroke or seizure-like episodes. Hip pain is about the same, still impacts the walking. Has had a couple of falls without injury. says memory is worsening. He gets confused easily, forgets short-term issues. No hallucinations. No agitation/aggression. He feels tired a lot, very low energy. concerned he is overmedicated. Review of Systems: All systems reviewed and negative except those documented in the History of Present Illness (HPI). Pertinent positives are documented below: See HPI Medical/Surgical/Social/Family Histories: Pertinent Family Hx: + ?Parkinson's disease in his mother and sister Social situation: former smoker and prior heavy alcohol use. Lives with . He has a past medical history of Arthritis, Carotid artery occlusion, CKD (chronic kidney disease), Closed displaced intertrochanteric fracture of right femur (HCC) (03/08/2021), Closed fracture of left orbital floor ([facility]) (06/10/2020), Closed fracture of multiple ribs of left side (06/10/2020), COPD (chronic obstructive pulmonary disease) ([facility]), Diabetes mellitus ([facility]), Essential tremor, Fall down stairs (04/14/2020), History of pneumonia, Hyperlipidemia, Hypertension, Left carotid artery stenosis (03/30/2016), Leg cramps, Leg heaviness, MGUS (monoclonal gammopathy of unknown significance), Peptic ulcer disease, PVD (peripheral vascular disease) ([facility]), Rhabdomyolysis (2009), Statin intolerance (04/01/2019), and Stroke ([facility]) (2009). He has a past surgical history that includes Hand surgery (Right, 2008); carotid angio (2009); pr teaec w/patch grf carotid vertb subclav neck inc (Right, 2009); Shoulder open rotator cuff repair (Left, 2014); and Im Nailing Femur (Right, 04/07/2021). He family history includes Cancer in his maternal grandfather, maternal uncle, and paternal grandmother; Deep vein thrombosis in his sister; Diabetes in his sister; Heart attack in his brother, father, and sister; Heart disease in his sister and sister; Hypertension in his sister; Old age in his mother; Ovarian cancer in his sister; Stroke in his sister. He reports that he has been smoking cigarettes. He has a 55.00 pack-year smoking history. He has never used smokeless tobacco. He reports current alcohol use. He reports that he does not use drugs. Allergies: Allergies: Levofloxacin and Varenicline HOME Medications: Current Outpatient Medications Medication Instructions acetaminophen (TYLENOL) 650 mg, Oral, As needed aspirin 81 mg, Oral, Daily atorvastatin (LIPITOR) 20 mg, Oral, Daily calcium-vitamin D (OS-SHELDON +D) 500 mg-5 mcg (200 unit) per tablet 1 tablet, Oral, 2 times daily with meals clopidogreL (PLAVIX) 75 mg, Oral, Daily doxycycline hyclate (VIBRAMYCIN) 100 mg, Oral, 2 times daily famotidine (PEPCID) 20 mg, Oral, 2 times daily fenofibrate 54 mg, Oral, Daily, Give with food fluticasone propion-salmeteroL (ADVAIR DISKUS) 500-50 mcg/dose diskus inhaler 1 puff, Inhalation, 2 times daily isosorbide mononitrate (IMDUR) 60 mg, Oral, Daily Lantus Solostar U-100 Insulin 16 Units, Subcutaneous, Nightly loratadine (CLARITIN) 10 mg, Oral, Daily PRN iaozztqp-ictz-AB-calcium-mins 9 mg iron-400 mcg Tab 1 tablet, Oral, Daily nitroGLYCERIN (NITROSTAT) 0.4 mg, Sublingual, Every 5 min PRN pantoprazole (PROTONIX) 40 mg, Oral, Daily PARoxetine (PAXIL) 20 mg, Oral, Daily predniSONE (DELTASONE) 10 mg, Oral, Daily with breakfast primidone (MYSOLINE) 100 mg, Oral, Nightly propranoloL (INDERAL LA) 120 mg, Oral, Daily sodium bicarbonate 1,300 mg, Oral, 2 times daily tamsulosin (FLOMAX) 0.4 mg, Oral, Daily tiotropium (SPIRIVA) 18 mcg, Inhalation, Daily Ventolin HFA 90 mcg/actuation inhaler USE 2 PUFFS EVERY 6 HOURS FOR SHORTNESS OF BREATH OR WHEEZING. Objective OBJECTIVE: Physical Examination: BP (!) 101/58 (BP Location: Right arm, Patient Position: Sitting, BP Cuff Size: Adult) Pulse 62 Resp 16 Ht 5' 6" Wt 72.6 kg (160 lb) SpO2 96% BMI 25.82 kg/m GENERAL: General Appearance: In NAD HEENT: Normocephalic. No conjunctival injection. Ears appear normal. No substantial sinus drainage. See below for vision/hearing Neck: Supple, no tenderness, preserved ROM. Respiratory Effort: easily winded on exertion Extremities: No edema Skin: No rashes visualized MSK: R hip pain with limited ROM at the hip both active and passive. MENTAL STATUS: Alertness, Attention Span & Concentration: awake, alert. Serial 7s with 1 error. Counts months backward quickly, with single error (skipped December). Trails B correct. Struggles somewhat with cube but clock drawing correct. Language: fluent, naming, reading, repetition were normal Speech: Normal Orientation: Oriented to person, place, time/date, and situation Memory, Recent & Remote: 1/3 recall at 5 minutes, gets last 2 with prompts. Fund of Knowledge: Normal CRANIAL NERVES: II - Visual Murphy: Normal II, III: Pupils: PERRL, no RAPD III, IV, : Eye Movements: Normal (EOMI, No ptosis, No nystagmus) V - Facial Sensation: Normal VII: Face Symmetry & Strength: Normal VIII - Hearing: decreased to finger rub bilaterally IX, X - Palate: Normal, elevates symmetrically XI - Shoulder Shrug: Normal XII - Tongue Protrusion: Normal, symmetric MOTOR: Muscle Strength Right Left 5 Shoulder Abduction (Deltoid) 5 5 Elbow Flexion (Biceps) 5 5 Elbow Extension (Triceps) 5 5 Wrist Flexion 5 5 Wrist Extension 5 4+ Finger Abduction (Interossei) 5 Right Left 4+ Hip Extension 5 4 Hip Flexion (Iliopsoas) 5 4+ Knee Extension (Quads) 5 4+ Knee Flexion (Hamstrings) 5 5 Dorsiflexion (Anterior Tibialis) 5 5 Plantar Flexion (Gastrocnemius) 5 Normal Bulk and Tone, no atrophy MOTOR RASMUSSEN: 5 Normal (Normal Power) 4 Mild Weakness (Movement against moderate resistance over a full range of motion) 3 Moderate Weakness (Movement against gravity only over almost full range of motion) 2 Severe Weakness (Movement with gravity eliminated over almost full range of motion) 1 Trace Movement (Contraction visible or palpable without effective movement of the joint) 0 No Movement (No contraction visible or palpable) NILESH Unable to Assess SENSATION: Fine Touch: Decreased feet bilaterally Pinprick: Decreased feet bilaterally up to ankle Proprioception: Normal Vibration: Decreased near absent at toes and decreased at ankles Temperature: Decreased feet bilaterally REFLEXES: Right Reflexes Left 1+ Biceps 1+ 1+ Triceps 1+ 1+ Brachioradialis 1+ 1+ Patellar 1+ 0 Achilles 0 Down Plantar Response (Babinski) Down REFLEXES RASMUSSEN: 4+ Sustained Clonus 3+ Brisk 2+ Normal 1+ Diminished 0 Absent NILESH Unable to Assess COORDINATION: Coordination Xhlmvw-cf-Aqko: No obvious ataxia; possibly some mild intention tremor on top of existing action tremor Valdovinos Finger taps: Slightly clumsy bilaterally but worse on the left Coordination Oumb-Pubo-Bidw: Limited by hip pain STANCE AND GAIT: Base/Stance: Mildly widened base, takes several steps back on pull testing, required me to catch him the first attempt, able to correct the second try. Gait: Very irregular with antalgic gait limited by hip stiffness and weakness. Slightly decreased arm swing bilaterally. Right leg steps are much shorter than left. Gait Aid Used During Exam: Straight cane Gait Assistance Required During Exam: Significant MOVEMENT DISORDERS EXAMINATION: Tremor - Considerable reduction in tremor. Still some action>postural>resting tremor but lower amplitude, present only in hands and not in the head like last time. Bradykinesia - Decreased amplitude with finger movements in both hands, but good speed. Foot tapping and heel movements on the right limited in speed, possibly by hip pain. Rigidity - Some in the neck but no marked rigidity of the hands Dyskinesia/Choreoathetosis - None Dystonia/Myoclonus/Tics - None PRIOR TESTING: Imaging: CT head 05/24/22 shows moderate white matter changes and at least moderate generalized atrophy, well out of proportion to age but consistent with a history of heavy alcohol use. Carotid duplex 02/22/22 shows chronic R vertebral artery occlusion, prior R CEA patent, L ICA 50-69% stenosis, and an occlusion of the ostium of the left ECA with more distal reconstitution. Labs: CMP with stable CKD, Cr 1.9 (GFR 37). CBC with macrocytic anemia (Hgb 11.7), last A1c 6.9. documented in this encounter [facility] 03-07-2023 Evaluation + Plan note Associated Problem(s): Other fracture of base of skull, initial encounter for closed fracture (CMS/HCC) (Resolved 03/07/2023) STABLE. [facility] Work Phone: 03-07-2023 Evaluation + Plan note Associated Problem(s): Vascular myelopathies (CMS/HCC) Doing fine and stable with current management, continue same [facility] Work Phone: 03-07-2023 Evaluation + Plan note Associated Problem(s): Depression, major, in remission (CMS/HCC) Stable, continue same [facility] Work Phone: 03-07-2023 Evaluation + Plan note Associated Problem(s): Chronic stable angina (CMS/HCC) Doing fine and stable with current management, continue same [facility] Work Phone: 03-07-2023 Miscellaneous Notes Associated Problem(s): Other fracture of base of skull, initial encounter for closed fracture (CMS/HCC) (Resolved 03/07/2023) STABLE. Associated Problem(s): Vascular myelopathies (CMS/HCC) Doing fine and stable with current management, continue same Associated Problem(s): Depression, major, in remission (CMS/HCC) Stable, continue same Associated Problem(s): Chronic stable angina (CMS/HCC) Doing fine and stable with current management, continue same documented in this encounter [facility] Work Phone: 03-07-2023 History of Present illness Narrative Subjective Patient ID: Stevo Elizalde is a 72 y.o. male who presents for Hospital Follow-up (F/U HOSPITAL DISCHARGE [facility] 02/27/23 - COPD EXACERBATION, LEFT RIB PAIN. ). HPI F/U AFTER 4 DAYS OF HOSPITAL STAY LAST WEEK FOR COPD EXACERBATIONS, B/L RIB PAIN , S/P FALL (WHILE WAS GOING TO BATHROOM DURING SLEEP). COPD IS IMPROVING BUT STILL HAS B/L RIB PAIN 4-5/10. HAD LABS , CXR , CT ANGIO OF CHEST AND EKG DONE AT ER VISIT. WAS PUT ON PO PREDNISONE 10 MG DAILY FOR 3 MON UPON HOSPITAL DISCHARGE. DM2 IS GETTING WORSE (BS OF 200-300) . CHRONIC FATIGUE. COPD IS IMPROVED AND IS BACK TO BASELINE. PT CUT BACK ON ETOH BUT STILL DRINKS . Review of Systems Constitutional: Positive for fatigue. Negative for chills and fever. HENT: Negative. Negative for congestion, postnasal drip and rhinorrhea. Eyes: Negative. Negative for visual disturbance. Respiratory: Negative for cough, shortness of breath and wheezing. Cardiovascular: Negative. Negative for chest pain, palpitations and leg swelling. Gastrointestinal: Negative. Negative for abdominal distention, abdominal pain, constipation, diarrhea, nausea and vomiting. Endocrine: Negative. Genitourinary: Negative for dysuria and urgency. Musculoskeletal: Negative for back pain. B/L RIB PAIN Skin: Negative. Negative for rash. Allergic/Immunologic: Negative for immunocompromised state. Neurological: Negative. Negative for dizziness, weakness, light-headedness and headaches. Psychiatric/Behavioral: Negative. Negative for agitation. Objective Physical Exam Constitutional: General: He is not in acute distress. HENT: Head: Normocephalic. Nose: Nose normal. Mouth/Throat: Mouth: Mucous membranes are moist. Eyes: Conjunctiva/sclera: Conjunctivae normal. Pupils: Pupils are equal, round, and reactive to light. Cardiovascular: Rate and Rhythm: Normal rate and regular rhythm. Pulses: Normal pulses. Heart sounds: Normal heart sounds. Pulmonary: Effort: No respiratory distress. Breath sounds: No wheezing. Chest: Chest wall: No tenderness. Abdominal: General: Abdomen is flat. Bowel sounds are normal. Palpations: Abdomen is soft. Tenderness: There is abdominal tenderness. Comments: RUQ AND EPIGASTRIC , LUQ TENDERNESS Musculoskeletal: General: No tenderness. Normal range of motion. Cervical back: Normal range of motion. Comments: MILD B/L RIB TENDERNESS , NO BRUISES Lymphadenopathy: Cervical: No cervical adenopathy. Skin: General: Skin is warm and dry. Findings: No rash. Neurological: General: No focal deficit present. Mental Status: He is alert. Mental status is at baseline. Psychiatric: Mood and Affect: Mood normal. Behavior: Behavior normal. Assessment/Plan 1. Rib pain diclofenac sodium (Voltaren) 1 % gel gel 2. Stenosis of left carotid artery 3. Hyperlipidemia, unspecified hyperlipidemia type atorvastatin (Lipitor) 20 mg tablet 4. Gastro-esophageal reflux disease without esophagitis famotidine (Pepcid) 20 mg tablet 5. Superficial gastritis without hemorrhage, unspecified chronicity sucralfate (Carafate) 1 gram tablet 6. Pulmonary emphysema, unspecified emphysema type (CMS/HCC) 7. CRF (chronic renal failure), stage 3 (moderate) (CMS/HCC) 8. Hypertension associated with type 2 diabetes mellitus (CMS/HCC) Comprehensive Metabolic Panel 9. Type 2 diabetes mellitus without complication, with long-term current use of insulin (CMS/HCC) Comprehensive Metabolic Panel Hemoglobin A1C 10. Other fatigue CBC and Auto Differential Vitamin B12 Methylmalonic Acid Folate Magnesium 11. Screening for prostate cancer Prostate Specific Antigen, Screen 12. Vascular myelopathies (CMS/HCC) 13. Depression, major, in remission (CMS/HCC) 14. Chronic stable angina (CMS/HCC) 15. Chronic shortness of breath 16. Hepatic steatosis 17. H/O fall 18. Abdominal pain, LUQ 19. Abdominal pain, RUQ TEST RESULTS WERE DISCUSSED. ALL ASSESSED CHRONIC CONDITIONS ARE STABLE OR ADDRESSED. ADVISED TO STOP THE PREDNISONE SINCE ACUTE SOB AND COPD EXACERBATIONS ARE RESOLVED. ADVISED TO HAVE LOW FAT AND LOW CALORIE DIET AND TO LOOSE WEIGHT, DAILY EXERCISE. ADVISED FOR FALL PRECAUTION. [address] ADA HGA1C GOAL LESS THAN 7 EXERCISE DAILY MDM 1) COMPLEXITY: 1 UNDIAGNOSED NEW PROBLEM WITH UNCERTAIN PROGNOSIS 2)DATA: TESTS INTERPRETED AND OR ORDERED, TOOK INDEPENDENT HISTORY OR RECORDS REVIEWED 3)RISK: MODERATE RISK DUE TO NATURE OF MEDICAL CONDITIONS/COMORBIDITY OR MEDICATIONS ORDERED OR SURGICAL OR PROCEDURE REFERRAL, . 2 WEEKS documented in this encounter [facility] Work Phone: 06-16-2022 Instructions Deshaun Rodrigues MD - 06/16/2022 1:30 PM EDT Mr. Elizalde, We are seeing you for a possible seizure event. This event was unlikely to represent a true seizure, sounding more like what we refer to as "cough syncope", a reaction to heavy coughing. The tremors are most likely what we call essential tremor. This is a benign tremor condition. We will try a medication called primidone. This is initially an anti-seizure medication but is usually used for tremor now. Take 1/2 tablet (25mg) nightly for 1 week or so. If not effective you can increase to 1 tablet (50mg) nightly. Each week you can increase by half a tablet if you need until we find a dose that works. Watch for drowsiness or dizziness on the medication. It was a pleasure taking care of you, and we all wish you the best of health. For concerns regarding medicines, adjusting doses or other questions: Call : [phone] (direct phone line to neurology staff) - leave a message if no one is available. (Note that [phone] is still listed on most of our paperwork and is a general line to the call pool in [place]; the number above is a faster way to get in touch with our staff here in [place]) [employer] [place] - the best way to send messages directly to your doctors, or request Drug Refills. Call [phone] to set up [employer] on your smart phone or computer. Mailing Address: Attn: Dr. Deshaun Rodrigues [address] [place] [address]# [phone], [facility] [address] Our documented in this encounter [facility] 06-16-2022 History of Present illness Narrative Neurology New Consult Note [facility] Date of Service: 06/16/22 Service Type: New Patient consultation Patient: Stevo Elizalde Date of : 1950 (72 y.o.) Referring Provider: Refer to consult order in electronic medical record PCP: Phyllis Mae MD ASSESSMENT: Stevo Elizalde is a 72 y.o. man who presents for possible seizure; primary concern is tremors. Reportedly had 2 lifetime possible seizures. One was just after a stroke, 10-15 years ago; the circumstances were unclear but it sounds like he was in severe renal failure at that time and was in the ICU for several weeks on sedation so it could well have been provoked. Was never placed on AED at that time. He had another more recent episode where he had intense coughing, followed by transient decreased responsiveness and generalized low-amplitude shaking lasting 20 seconds without any incontinence, oral trauma, or post-ictal period. He has had similar episodes of similar symptoms in the setting of intense coughing before but usually they are similar. The recent episode sounds most consistent with cough syncope. In particular the history of similar brief episodes in setting of cough, and the lack of any post-ictal period, makes epileptic seizure very unlikely. He does technically have risk factor for seizures but was not interested in AED and did not really want an MRI or EEG. He does not drive anyway. I would focus on management of his COPD and reduction in coughing. If episodes recur we can pursue the MRI and EEG again at that point. His main concern is tremor. He has tremors of both hands and the head stretching back a few years now. On exam he has an action>postural>resting tremor of both hands as well as a no-no pattern head tremor. This appears more consistent with essential tremor. There are some mixed signs of parkinsonism on exam. He has slight slowness and stiffness on the R hand, and has significant imbalance and slow gait. However these could be explained by minor findings from his prior stroke on the right side and by his right hip fracture and resultant hip pain which is clearly causing a severe impairment in his gait. He also has a history of alcoholism and has evidence of a mild peripheral neuropathy (diabetic vs renal vs alcohol-related in etiology) which can be affecting his balance. Parkinson's disease plus ET is possible but as the tremor is his predominant symptom we will start with a try of treating that. Overall I think based on the pattern of the tremor it is reasonable to start with treatment using primidone, which was ordered at one point in the past but they deny ever trying. Will have to renally dose carefully. He has failed propranolol at an adequate dose. We could consider gabapentin, which may also help with his chronic pain. If these agents fail, it may be reasonable to pursue a CLIFFORD scan given the partial parkinsonian features on exam. This could help avoid unnecessary treatments for him. He has generally recovered from prior stroke. Is on DAPT and statin appropriately. Follows with Dr. Munguia for carotid stenosis. Problems addressed in this visit: 1. Essential tremor 2. Cough syncope PLAN: Medication changes: primidone 25mg nightly x 1 week, then increase to 50mg nightly. Can uptitrate by 25mg weekly after up to 100mg if need be. Labs: none Imaging: none for now Other: none Follow Up: 6 months in person, call sooner with update Attestation: Discussed risks, benefits and alternatives regarding treatment options, and diagnoses with Mr Elizalde and his and daughter. Answered questions and we discussed plan at length. I independently reviewed past history, previous clinic notes, lab results, allergies, medications and radiology images which are summarized in this note with annotations wherever appropriate. Time statement: A total of 66 minutes were spent on this encounter. This includes the following patient-centered activities: 1. Preparation for patient's visit (reviewing previous chart, current medical records, previous history, exam, test, procedure, and medications) 2. Face to face encounter obtaining history from the patient/family/caregivers; performing evaluation and examination; ordering medications, tests, or procedures; referring and communicating with other healthcare professionals; counseling and education of the patient/family/caregiver; independently interpreting results (tests, labs, procedures, imaging) and communicating and explaining results to the patient/family/caregiver 3. Coordination of care; preparing and printing discharge instruction and any educational material for the patient and caregivers. Documenting clinical information in the electronic and other health records. Reviewing OARRS as needed. Deshaun Rodrigues MD Staff Neurologist [facility] [address] [id number], [place] [phone] Clinic Fax: [phone] 06/16/22 Subjective Chief Complaint/Reason for Consult: seizure Informant(s): self History of Present Illness: Stevo Elizalde is a 72 y.o. man who reports a pertinent history of stroke (2009), prior alcoholism, COPD, CKD, T2DM, ?essential tremor, carotid stenosis, HTN, and HLD, who presents to the office today for seizure-like episode. Spell vs seizure: reports that he had one seizure 10-15 years ago after a small stroke. He cannot recall the circumstances or the semiology exactly, however he was hospitalized at the time for renal failure and was unresponsive for 13 days according to his who says it was a miracle he woke up. I am unclear what the seizure had to do with this exactly but he was never placed on antiepileptics at that time. He was seizure free after this until he had an episode on 05/24/22. He was sitting with family and started coughing severely. He briefly lost awareness and had generalized shaking lasting less than 20 seconds followed by immediate return to full awareness. No incontinence, no oral trauma. He has had similar smaller events, always due to severe coughing, but those previous ones were usually only a couple seconds long. No issues since that episode; he was given Keppra by the ED but never took it. Tremor: major complaint is tremor. He has a tremor of both hands going back several years which is steadily worsening. It also involves the head. It is predominantly bothersome when he is eating or writing; his has to do the writing for him now. He has a history of prior stroke in 2009 or so, with no significant residual deficits. Etiology presumably due to carotid artery disease. He seemed unsure what side the stroke was on. He has a prior R hip fracture which causes significant pain; this limits his walking. He uses a cane now due to this hip pain. He is quite unsteady. Some numbness in both feet consistent with neuropathy. He has a history of prior alcohol use that was heavy at times but none recently. Does not know if alcohol affects the tremor. + tremors - presumably Parkinson's - in mother and sister. Review of Systems: All systems reviewed and negative except those documented in the History of Present Illness (HPI). Pertinent positives are documented below: See HPI Medical/Surgical/Social/Family Histories: Pertinent Family Hx: + ?Parkinson's disease in his mother and sister Social situation: former smoker and prior heavy alcohol use. Lives with . He has a past medical history of Arthritis, Carotid artery occlusion, CKD (chronic kidney disease), Closed fracture of left orbital floor ([facility]) (06/10/2020), Closed fracture of multiple ribs of left side (06/10/2020), COPD (chronic obstructive pulmonary disease) ([facility]), Diabetes mellitus ([facility]), Essential tremor, Fall down stairs (04/14/2020), History of pneumonia, Hyperlipidemia, Hypertension, Left carotid artery stenosis (03/30/2016), Leg cramps, Leg heaviness, MGUS (monoclonal gammopathy of unknown significance), Peptic ulcer disease, PVD (peripheral vascular disease) (HCC), Rhabdomyolysis (2009), Statin intolerance (04/01/2019), and Stroke ([facility]) (2009). He has a past surgical history that includes Hand surgery (Right, 2008); carotid angio (2009); pr thromboendartectmy neck,neck incis (Right, 2009); Shoulder open rotator cuff repair (Left, 2014); and Im Nailing Femur (Right, 04/07/2021). He family history includes Cancer in his maternal grandfather, maternal uncle, and paternal grandmother; Deep vein thrombosis in his sister; Diabetes in his sister; Heart attack in his brother, father, and sister; Heart disease in his sister and sister; Hypertension in his sister; Old age in his mother; Ovarian cancer in his sister; Stroke in his sister. He reports that he has been smoking cigarettes. He has a 55.00 pack-year smoking history. He has never used smokeless tobacco. He reports current alcohol use. He reports that he does not use drugs. Allergies: Allergies: Levofloxacin and Varenicline HOME Medications: Current Outpatient Medications Medication Instructions Accu-Chek Elli Plus test strp strips USE TO CHECK BG 3X DAILY. DX CODE E11.9 ON INSULIN . aclidinium bromide (TUDORZA PRESSAIR INHL) Inhalation albuterol (PROVENTIL) 2.5 mg, Nebulization, Every 4 hours PRN aspirin 81 mg, Oral, Daily atorvastatin (LIPITOR) 20 mg, Oral, Daily bisacodyL (DULCOLAX) 10 mg, Rectal, Nightly PRN, If no results from Milk of Magnesia. blood-glucose meter kit Use as instructed calcium-vitamin D (OS-SHELDON +D) 500 mg-5 mcg (200 unit) per tablet 1 tablet, Oral, 2 times daily with meals clopidogreL (PLAVIX) 75 mg, Oral, Daily famotidine (PEPCID) 20 mg, Oral, 2 times daily fenofibrate 54 mg, Oral, Daily, Give with food fluticasone propion-salmeteroL (ADVAIR DISKUS) 500-50 mcg/dose diskus inhaler 1 puff, Inhalation, 2 times daily isosorbide mononitrate (IMDUR) 60 mg, Oral, Daily lancets Misc Use as directed QID. E11.65 on QID insulin regimen Lantus Solostar U-100 Insulin 16 Units, Subcutaneous, Nightly loratadine (CLARITIN) 10 mg, Oral, Daily PRN bqtcxrog-cnzu-FD-calcium-mins 9 mg iron-400 mcg Tab 1 tablet, Oral, Daily nitroGLYCERIN (NITROSTAT) 0.4 mg, Sublingual, Every 5 min PRN pantoprazole (PROTONIX) 40 mg, Oral, Daily PARoxetine (PAXIL) 20 mg, Oral, Daily pen needle, diabetic 31 gauge x 5/16" Ndle Use as directed 4 times daily primidone (MYSOLINE) 50 mg, Oral, Nightly propranoloL (INDERAL LA) 120 mg, Oral, Daily sodium bicarbonate 1,300 mg, Oral, 2 times daily tamsulosin (FLOMAX) 0.4 mg, Oral, Daily tiotropium (SPIRIVA) 18 mcg, Inhalation, Daily Objective OBJECTIVE: Physical Examination: BP 129/72 (BP Location: Right arm, Patient Position: Sitting, BP Cuff Size: Adult) Pulse 78 Resp 16 SpO2 95% GENERAL: General Appearance: In NAD HEENT: Normocephalic. No conjunctival injection. Ears appear normal. No substantial sinus drainage. See below for vision/hearing Neck: Supple, no tenderness, preserved ROM. Respiratory Effort: easily winded on exertion Extremities: No edema Skin: No rashes visualized MSK: R hip pain with limited ROM at the hip both active and passive. MENTAL STATUS: Alertness, Attention Span & Concentration: Normal Language: Normal Speech: Normal Orientation: Oriented to person, place, time/date, and situation Memory, Recent & Remote: 1/3 recall at 5 minutes Fund of Knowledge: Normal CRANIAL NERVES: II - Visual Murphy: Normal II, III: Pupils: PERRL, no RAPD III, IV, : Eye Movements: Normal (EOMI, No ptosis, No nystagmus) V - Facial Sensation: Normal VII: Face Symmetry & Strength: Normal VIII - Hearing: decreased to finger rub bilaterally IX, X - Palate: Normal, elevates symmetrically XI - Shoulder Shrug: Normal XII - Tongue Protrusion: Normal, symmetric MOTOR: Muscle Strength Right Left 5 Shoulder Abduction (Deltoid) 5 5 Elbow Flexion (Biceps) 5 5 Elbow Extension (Triceps) 5 5 Wrist Flexion 5 5 Wrist Extension 5 4+ Finger Abduction (Interossei) 5 Right Left 4+ Hip Extension 5 4 Hip Flexion (Iliopsoas) 5 4+ Knee Extension (Quads) 5 4+ Knee Flexion (Hamstrings) 5 5 Dorsiflexion (Anterior Tibialis) 5 5 Plantar Flexion (Gastrocnemius) 5 Normal Bulk and Tone, no atrophy MOTOR RASMUSSEN: 5 Normal (Normal Power) 4 Mild Weakness (Movement against moderate resistance over a full range of motion) 3 Moderate Weakness (Movement against gravity only over almost full range of motion) 2 Severe Weakness (Movement with gravity eliminated over almost full range of motion) 1 Trace Movement (Contraction visible or palpable without effective movement of the joint) 0 No Movement (No contraction visible or palpable) NILESH Unable to Assess SENSATION: Fine Touch: Decreased feet bilaterally Pinprick: Decreased feet bilaterally up to ankle Proprioception: Normal Vibration: Decreased near absent at toes and decreased at ankles Temperature: Decreased feet bilaterally REFLEXES: Right Reflexes Left 1+ Biceps 1+ 1+ Triceps 1+ 1+ Brachioradialis 1+ 1+ Patellar 1+ 0 Achilles 0 Down Plantar Response (Babinski) Down REFLEXES RASMUSSEN: 4+ Sustained Clonus 3+ Brisk 2+ Normal 1+ Diminished 0 Absent NILESH Unable to Assess COORDINATION: Coordination [id number]-ot-Fmja: No obvious ataxia; possibly some mild intention tremor on top of existing action tremor Valdovinos Finger taps: Slightly clumsy bilaterally Coordination Mdjs-Lhcu-Cokx: Limited by hip pain STANCE AND GAIT: Base/Stance: Mildly widened base, takes several steps back on pull testing, required me to catch him the first attempt, able to correct the second try. Gait: Very irregular with antalgic gait limited by hip stiffness and weakness. Decreased arm movement but had to hold on to me during gait exam. Strides quite short on the right leg but better on the left. Gait Aid Used During Exam: Straight cane Gait Assistance Required During Exam: Significant MOVEMENT DISORDERS EXAMINATION: Tremor - Mixed action and resting tremor, which is amplitude about 1 cm or less, fairly high frequency, roughly symmetric in both hands. There is a frequent no-no head tremor as well. Bradykinesia - Decreased amplitude with finger movements in both hands, but good speed. Foot tapping and heel movements on the right limited in speed, possibly by hip pain. Rigidity - Some in the neck but no marked rigidity of the hands Dyskinesia/Choreoathetosis - None Dystonia/Myoclonus/Tics - None PRIOR TESTING: Imaging: CT head 05/24/22 shows moderate white matter changes and at least moderate generalized atrophy, well out of proportion to age but consistent with a history of heavy alcohol use. Carotid duplex 02/22/22 shows chronic R vertebral artery occlusion, prior R CEA patent, L ICA 50-69% stenosis, and an occlusion of the ostium of the left ECA with more distal reconstitution. Labs: CMP with stable CKD, Cr 1.9 (GFR 37). CBC with macrocytic anemia (Hgb 11.7), last A1c 6.9. documented in this encounter [facility] 06-10-2022 History of Present illness Narrative Images from the original note were not included. Patient ID: Stevo Elizalde is a 72 y.o. male 1950 Subjective: Stevo Elizalde presents for evaluation of Type 2 diabetes Patient has had diabetes for 16 years. Diagnosed in 2004 Patient has taken Insulin for 10-11 years. Patient has been following with Dr. Carmelita MD. Mr. Elizalde is a 72-year-old male patient that presents today for follow-up in regards to his type 2 diabetes. Patient currently takes basal insulin, he states that he checks blood sugars approximately twice daily. Glucometer reviewed today. He denies any blood sugars less than 80 at this time. Patient's hemoglobin A1c has remained stable at 6.9%. Of note, patient states he recently had seizure-like activity that sent him to the ED on 05/24/2022. Patient states they found no acute findings as to what caused the seizure. He states he did previously have a seizure after his CVA but has not had one since. His BG was not low at the time. Patient in ECF in the last year secondary to hip fracture and COPD. Metformin stopped due to CRI. Currently taking: Lantus insulin: 10-16 units at bedtime Outpatient Medications Marked as Taking for the 06/10/22 encounter (Office Visit) with Erica Gardner PA-C: Accu-Chek Elli Plus test strp strips, USE TO CHECK BG 3X DAILY. DX CODE E11.9 ON INSULIN . aclidinium bromide (TUDORZA PRESSAIR INHL), Inhale . albuterol (PROVENTIL) 2.5 mg /3 mL (0.083 %) nebulizer solution, Take 2.5 mg by nebulization every 4 (four) hours as needed for wheezing . aspirin 81 MG EC tablet, Take 81 mg by mouth daily . atorvastatin (LIPITOR) 20 MG tablet, Take 20 mg by mouth daily . bisacodyL (DULCOLAX) 10 mg suppository, Insert 10 mg into the rectum nightly as needed for constipation If no results from Milk of Magnesia. . blood-glucose meter kit, Use as instructed . calcium-vitamin D (OS-SHELDON +D) 500 mg-5 mcg (200 unit) per tablet, Take 1 tablet by mouth 2 (two) times a day with meals . famotidine (PEPCID) 20 MG tablet, Take 20 mg by mouth 2 (two) times a day . fenofibrate 54 MG tablet, Take 54 mg by mouth daily Give with food . fluticasone propion-salmeteroL (ADVAIR DISKUS) 500-50 mcg/dose diskus inhaler, Inhale 1 puff 2 (two) times a day . lancets Misc, Use as directed QID. E11.65 on QID insulin regimen . Lantus Solostar U-100 Insulin 100 unit/mL (3 mL) InPn, Inject 16 (sixteen) Units under the skin nightly . levETIRAcetam (Keppra) 500 MG tablet, Take 1 (one) tablet (500 mg total) by mouth 2 (two) times a day . loratadine (CLARITIN) 10 mg tablet, Take 10 mg by mouth daily as needed for allergies. lnykxfbw-rjfh-EL-calcium-mins 9 mg iron-400 mcg Tab, Take 1 tablet by mouth daily . nitroGLYCERIN (NITROSTAT) 0.4 MG SL tablet, Place 1 (one) tablet (0.4 mg total) under the tongue every 5 (five) minutes as needed for chest pain . PARoxetine (PAXIL) 20 MG tablet, Take 20 mg by mouth daily . pen needle, diabetic 31 gauge x 5/16" Ndle, Use as directed 4 times daily . primidone (MYSOLINE) 50 MG tablet, Take 50 mg by mouth nightly . propranoloL (INDERAL LA) 120 MG 24 hr capsule, Take 1 (one) capsule (120 mg total) by mouth daily . sodium bicarbonate 650 MG tablet, Take 1,300 mg by mouth 2 (two) times a day . tamsulosin (FLOMAX) 0.4 mg capsule, Take 0.4 mg by mouth daily . tiotropium (SPIRIVA) 18 mcg inhalation capsule, Place 18 mcg into inhaler and inhale daily . Review of Systems: Review of Systems Constitutional: Positive for fatigue. Negative for unexpected weight change. HENT: Negative for trouble swallowing. Eyes: Negative for visual disturbance. Respiratory: Positive for shortness of breath (chronic). Negative for cough. Cardiovascular: Negative for chest pain and leg swelling. Gastrointestinal: Negative for abdominal pain, constipation, diarrhea, nausea and vomiting. Endocrine: Negative for polydipsia, polyphagia and polyuria. Genitourinary: Negative for frequency and urgency. Musculoskeletal: Positive for arthralgias. Negative for back pain. Skin: Negative for wound. Neurological: Positive for tremors (per baseline), weakness and numbness. Negative for headaches. Psychiatric/Behavioral: Negative for agitation and sleep disturbance. The patient is not nervous/anxious. The following portions of the patient's history were reviewed and updated as appropriate: allergies, current medications, past family history, past medical history, past social history, past surgical history and problem list. Objective: BP 116/66 Pulse 79 Ht 5' 7" Wt 69.4 kg (153 lb) BMI 23.96 kg/m Wt Readings from Last 3 Encounters: 06/10/22 69.4 kg (153 lb) 06/02/22 70.3 kg (155 lb) 05/24/22 70.3 kg (155 lb) Physical Exam: General: alert, appears stated age and cooperative Eyes: conjunctivae/corneas clear. PERRL, EOM's intact. Neck: no adenopathy, supple, symmetrical, trachea midline. Thyroid: No thyromegaly appreciated Lung: clear to auscultation bilaterally Heart: regular rate and rhythm, S1, S2 normal, no murmur, click, rub or gallop Extremities: extremities normal, atraumatic, no cyanosis or edema Feet: Dry skin, Bilateral Feet: warm, good capillary refill and normal DP. Monofilament exam Normal , bilateral lower extremities. Neuro: normal without focal findings, mental status, speech normal, alert and oriented x3 and CHERYL Laboratory Review: BP 116/66 Pulse 79 Ht 5' 7" Wt 69.4 kg (153 lb) BMI 23.96 kg/m 05/12/2022 Hemoglobin A1c 6.9% Creatinine 1.82, estimated GFR 39, K4.6 AST 21, ALT 25 12/14/2021 Hemoglobin A1c 7.2% Creatinine 1.62, estimated GFR 42, K4.3 AST 20, ALT 30 T cholesterol 216, TG 247, HDL 39, LDL 128 TSH 2.51, free T4: 0.9 Microalbumin/creatinine ratio: 213 08/03/21 Hgb A1c: 5.9% 05/09/21 Creat: 1.57; eGFR: 43 K: 4.4 CBC: WBC:7356; Hgb: 8.6; Hct: 26.4.; Plt: 265 07/28/2020 Hemoglobin A1c: 5.9% Creat: 1.68, eGFR: 40 K: 4.6 AST: 20, ALT: 24 Tot chol: 178, T, HDL: 40, LDL: 75 WBC: 5.30, Hgb: 13.6, Hct: 39.6, Plt: 170 TSH: 1.07, Free T4: 1.0 Micro/creat: 380 Assessment/Plan: Dx: 1. Type 2 diabetes mellitus with stage 3b chronic kidney disease, with long-term current use of insulin ([facility]) Hemoglobin A1c Comprehensive Metabolic Panel TSH T4, Free Lipid Panel CBC and Differential 2. Essential hypertension Type 2 diabetes, under good control Currently taking: Lantus insulin: 10-16 units at bedtime Current Hemoglobin A1C= Lab Results Component Value Date HGBA1C 6.9 (H) 05/12/2022 HGBA1C 7.2 (H) 12/14/2021 HGBA1C 5.9 08/03/2021 Weight trend: is stable Current diet: carb controlled Current exercise: none Current monitoring regimen: home blood tests - 1 times daily Home blood sugar records: See scanned readings Fasting BG: Pre-lunch BG: Pre-supper BG: Bedtime BG: Any episodes of hypoglycemia? None as of recently NOTES: Retinopathy: Negative Exam within last 12 months: yes Refund Specialist/Technical Editor: Dr. Lepe Other Ophthalmologic Conditions: S/P Right cataract extraction with IOLI and S/P Left cataract extraction with IOLI Nephropathy: Positive -- Follows with Dr. Clif Cheung every 6 months, has appointment next week Lab Results Component Value Date CREATININE 1.88 (H) 05/24/2022 CREATININE 1.88 (H) 05/24/2022 EXTEGFR >=60 09/19/2018 EXTEGFRAFAME >=60 09/19/2018 Microalbumin/creatinine ratio: 213 Is patient on MADELYN inhibitor or angiotensin II receptor danny? yes Lisinopril Peripheral Neuropathy: Positive Reports bilateral numbness and tingling in feet, Stable from previous, currently taking Lyrica 75 mg 2 times daily Autonomic Neuropathy: Negative Hypoglycemia unawareness. Senses low BG at <80 mg/dl. Other: Hyperlipidemia: Positive Currently taking: lovastatin (Mevacore). LFT's WNL T cholesterol 216, TG 247, HDL 39, LDL 128 - 11/2021 Plan: Patient was instructed to consume a heart healthy low-cholesterol diet to help with triglycerides at this time. Will avoid high potency statin at this time. Hypertension: Positive. Currently taking: amlodipine (Norvasc) and lisinopril (Prinivil) BP: 116/66 Cardiac: Positive Experiencing chest pain No . Experiencing shortness of breath No History of CAD, PVD Follows routinely with: Dr. Herrera, last seen in 03/2020. Biannual follow-up Respiratory: Positive History of COPD, continues to smoke 1 ppd. Previously followed with Dr. Jesus Cruz, will be seeing Dr. Michele or [place]. Vascular: Positive History of CVA 2009 Feet: Follows with Podiatry: No Decision Science Analyst: History of foot ulceration: No History of amputation: No Thyroid: Lab Results Component Value Date TSH 2.51 12/14/2021 Negative Other: Follows with Dr. Dewitt for chronic anemia. Right hip fracture, repair with TFN nail 04/07/21. Plan: 1. Rx changes: Continue current regimen Lantus insulin: 12 units at bedtime Spoke about utilizing a set dose of basal insulin rather than sliding scale. HgbA1c stable on current regimen otherwise. He was instructed to call in BG should he begin to experience any consistent hyperglycemia or hypoglycemia so that further adjustments can be made as necessary. 2. Education: Reviewed ABCs of diabetes management (respective goals in parentheses): A1C (7.0-8.0), blood pressure (<130/80), and cholesterol (LDL <100). Discussed disease process of type 2 DM Treatment of hypoglycemia Eating plans Insulin administrate, along with sliding scale usage. 3. Compliance at present is estimated to be fair. Efforts to improve compliance (if necessary) will be directed at increased exercise and regular blood sugar monitorin times daily. Also, will be directed at dietary modifications: Limit portion sizes and Limit starches, carbohydrates and concentrated sugar sources 4. Follow up: 4 months 5. Record blood sugar readings as instructed. Call if BG consistently <70 or >250. [phone] Patient has been checking blood glucoses 2 times daily for the past 90 days. Patient needs to continue checking blood glucoses 4 times daily. Blood glucose readings are used to adjust medication or insulin doses for meals, monitor dietary compliance, and adjust for high or low blood glucoses by patient on a daily basis. Blood glucose readings are reviewed at office visits for adjustment in medication regimen and assistance with dietary management, and other self-management issues including exercise, etc. Prognosis: Good. Duration of need for diabetes testing equipment: Permanent #150 strips/month prescribed. 6. Bring blood sugar meter to follow up appointment. Orders Placed This Encounter Procedures Hemoglobin A1c Comprehensive Metabolic Panel TSH T4, Free Lipid Panel CBC and Differential Electronically signed by Erica Gardner PA-C 06/10/22 12:25 PM documented in this encounter [facility] 06-04-2022 Evaluation + Plan note Associated Problem(s): GREEN (dyspnea on exertion) Reviewed. [facility] 06-04-2022 Miscellaneous Notes Associated Problem(s): GREEN (dyspnea on exertion) Reviewed. documented in this encounter [facility] 06-02-2022 History of Present illness Narrative [facility] [address] ([address]) [facility] [address] [facility] [id number] Subjective: Stevo Elizalde is a 72 y.o. male seen in the office today for Chief Complaint Patient presents with Follow-up Overdue -last seen 11/23/20 -Eye Noticed plague in eye Per GREEN/ Fatigue, Chest pain across chest History of somewhat atypical chest discomfort. Seen in a portable wheelchair today history of stroke. Pulse regular recent ER visit reviewed EKG laboratory troponin unremarkable. It was thought that he had a seizure. Has been started back on Keppra apparently had a remote seizures in the past seeing neurology in the near future. Patient alert oriented conversant today. Unable to walk on a treadmill. No history of myocardial infarction carotid Doppler reviewed tells me is on aspirin baby aspirin as well as the Plavix. Overview of Problems Addressed: Problem Green (Dyspnea On Exertion) Assessment & Plan: Patient cannot do a treadmill stress test and is higher risk for a Lexiscan nuclear stress test with his history of recent seizure on seizure medicines. In the past dobutamine stress test was submaximal. At this point we will check echocardiogram and increase his Inderal LA to 120 mg daily heart rate in the 80s today. Regular. Continue other medications see back in 6 months. Recent EKG normal. Troponin negative nuclear stress test with Lexiscan in 2019 negative for ischemia. GREEN (dyspnea on exertion) Reviewed. Histories: Past Medical History: Diagnosis Date Arthritis Carotid artery occlusion CKD (chronic kidney disease) Stage III Closed fracture of left orbital floor ([facility]) 06/10/2020 Closed fracture of multiple ribs of left side 06/10/2020 COPD (chronic obstructive pulmonary disease) ([facility]) Diabetes mellitus ([facility]) TYPE 2 Essential tremor Fall down stairs 04/14/2020 History of pneumonia Hyperlipidemia Hypertension Left carotid artery stenosis 03/30/2016 Leg cramps Leg heaviness MGUS (monoclonal gammopathy of unknown significance) Peptic ulcer disease PVD (peripheral vascular disease) ([facility]) Rhabdomyolysis 2009 Statin intolerance 04/01/2019 ??? Rhabdomyolysis in past. Stroke ([facility]) 2010 R side Past Surgical History: Procedure Laterality Date carotid angio 2010 HAND SURGERY Right 2009 IM NAILING FEMUR Right 04/07/2021 Procedure: RIGHT TFN; Surgeon: Dylon Galindo MD; Location: Main OR; Service: Orthopedic [place] THROMBOENDARTECTMY NECK,NECK INCIS Right 2009 SHOULDER OPEN ROTATOR CUFF REPAIR Left 2015 Family History Problem Relation Age of Onset Heart attack Father Diabetes Sister Heart attack Sister Stroke Sister Hypertension Sister Deep vein thrombosis Sister leg Ovarian cancer Sister Heart attack Brother Other (Old age) Mother Cancer Maternal Grandfather Cancer Paternal Grandmother Cancer Maternal Uncle Heart disease Sister Heart disease Sister Breast cancer Neg Hx Social History Tobacco Use Smoking status: Every Day Packs/day: 1.00 Years: 55.00 Pack years: 55.00 Types: Cigarettes Smokeless tobacco: Never Tobacco comments: Former 3-4 ppd 40 years Vaping Use Vaping Use: Never used Substance Use Topics Alcohol use: Yes Comment: occasional Drug use: No Patient's Medications New Prescriptions No medications on file Previous Medications ACCU-CHEK ELLI PLUS TEST STRP STRIPS USE TO CHECK BG 3X DAILY. DX CODE E11.9 ON INSULIN . ACLIDINIUM BROMIDE (TUDORZA PRESSAIR INHL) Inhale . ALBUTEROL (PROVENTIL) 2.5 MG /3 ML (0.083 %) NEBULIZER SOLUTION Take 2.5 mg by nebulization every 4 (four) hours as needed for wheezing . ASPIRIN 81 MG EC TABLET Take 81 mg by mouth daily . ATORVASTATIN (LIPITOR) 20 MG TABLET Take 20 mg by mouth daily . BISACODYL (DULCOLAX) 10 MG SUPPOSITORY Insert 10 mg into the rectum nightly as needed for constipation If no results from Milk of Magnesia. . BLOOD-GLUCOSE METER KIT Use as instructed . CALCIUM-VITAMIN D (OS-SHELDON +D) 500 MG-5 MCG (200 UNIT) PER TABLET Take 1 tablet by mouth 2 (two) times a day with meals . CLOPIDOGREL (PLAVIX) 75 MG TABLET Take 1 (one) tablet (75 mg total) by mouth daily . FAMOTIDINE (PEPCID) 20 MG TABLET Take 20 mg by mouth 2 (two) times a day . FENOFIBRATE 54 MG TABLET Take 54 mg by mouth daily Give with food . FLUTICASONE PROPION-SALMETEROL (ADVAIR DISKUS) 500-50 MCG/DOSE DISKUS INHALER Inhale 1 puff 2 (two) times a day . ISOSORBIDE MONONITRATE (IMDUR) 30 MG 24 HR TABLET Take 2 (two) tablets (60 mg total) by mouth daily . LABETALOL (NORMODYNE) 100 MG TABLET Take 1 (one) tablet (100 mg total) by mouth every 12 (twelve) hours . LANCETS MISC Use as directed QID. E11.65 on QID insulin regimen . LANTUS SOLOSTAR U-100 INSULIN 100 UNIT/ML (3 ML) INPN Inject 16 (sixteen) Units under the skin nightly . LEVETIRACETAM (KEPPRA) 500 MG TABLET Take 1 (one) tablet (500 mg total) by mouth 2 (two) times a day . LORATADINE (CLARITIN) 10 MG TABLET Take 10 mg by mouth daily as needed for allergies. YZKNLTSN-PYUP-GP-CALCIUM-MINS 9 MG IRON-400 MCG TAB Take 1 tablet by mouth daily . PANTOPRAZOLE (PROTONIX) 40 MG TABLET Take 1 (one) tablet (40 mg total) by mouth daily Start: 04/13/21. PAROXETINE (PAXIL) 20 MG TABLET Take 20 mg by mouth daily . PEN NEEDLE, DIABETIC 31 GAUGE X 5/16" NDLE Use as directed 4 times daily . PRIMIDONE (MYSOLINE) 50 MG TABLET Take 50 mg by mouth nightly . SODIUM BICARBONATE 650 MG TABLET Take 1,300 mg by mouth 2 (two) times a day . TAMSULOSIN (FLOMAX) 0.4 MG CAPSULE Take 0.4 mg by mouth daily . TIOTROPIUM (SPIRIVA) [address] 18 mcg into inhaler and inhale daily . Modified Medications Modified Medication Previous Medication NITROGLYCERIN (NITROSTAT) 0.4 MG SL TABLET nitroGLYCERIN (NITROSTAT) 0.[address] 1 (one) tablet (0.4 mg total) under the tongue every 5 (five) minutes as needed for chest pain . Place 0.4 mg under the tongue every 5 (five) minutes as needed for chest pain . PROPRANOLOL (INDERAL LA) 120 MG 24 HR CAPSULE propranoloL (INDERAL LA) 80 MG 24 hr capsule Take 1 (one) capsule (120 mg total) by mouth daily . Take 1 (one) capsule (80 mg total) by mouth daily . Discontinued Medications ATORVASTATIN (LIPITOR) 10 MG TABLET Take 1 (one) tablet (10 mg total) by mouth nightly . LOVASTATIN (MEVACOR) 10 MG TABLET Take 10 mg by mouth nightly . NIFEDIPINE (ADALAT CC) 30 MG 24 HR TABLET Take 1 (one) tablet (30 mg total) by mouth daily . Allergies Allergen Reactions Levofloxacin GI Intolerance Varenicline Swelling Review of Systems Constitutional: Positive for malaise/fatigue. Cardiovascular: Positive for chest pain and dyspnea on exertion. Negative for leg swelling and palpitations. Sharp atypical. Neurological: Negative for dizziness. Objective: Physical Exam Vitals and nursing note reviewed. Constitutional: General: He is not in acute distress. Appearance: He is well-developed. He is not diaphoretic. Comments: No acute distress HENT: Head: Normocephalic. Eyes: General: No scleral icterus. Comments: Pupils equal. Neck: Vascular: No JVD. Cardiovascular: Rate and Rhythm: Regular rhythm. Pulses: Radial pulses are 2+ on the right side and 2+ on the left side. Heart sounds: S1 normal and S2 normal. No murmur heard. No gallop. No S3 or S4 sounds. Comments: Feet warm bilateral. No murmur heard today Pulmonary: Effort: No respiratory distress. Breath sounds: Normal breath sounds. No stridor. No wheezing or rales. Abdominal: General: There is no distension. Palpations: Abdomen is soft. Tenderness: There is no abdominal tenderness. There is no guarding. Musculoskeletal: General: No tenderness. Comments: Seen in a portable wheelchair. Skin: General: Skin is warm and dry. Neurological: Mental Status: He is alert and oriented to person, place, and time. Psychiatric: Behavior: Behavior normal. Vitals: Vitals: 06/02/22 1531 BP: 122/72 BP Location: Left arm Patient Position: Sitting BP Cuff Size: Adult Pulse: 85 SpO2: 93% Weight: 70.3 kg (155 lb) Height: 5' 7" Body mass index is 24.28 kg/m . Orders Placed This Encounter Procedures Echocardiogram complete Standing Status: Future Standing Expiration Date: 06/03/2023 Order Specific Question: Reason for exam Answer: Dyspnea Order Specific Question: Release to patient Answer: Immediate Follow Up Ordered: Return in about 6 months (around 12/03/2022). Aquiles Herrera MD Review of Systems Constitutional: Positive for malaise/fatigue. Cardiovascular: Positive for chest pain and dyspnea on exertion. Negative for leg swelling and palpitations. Neurological: Negative for dizziness. documented in this encounter [facility] 06-02-2022 Instructions Kiana Cheatham MA - 06/02/2022 3:31 PM EDT How to Contact your Care Team: Provider: Dr. Aquiles Herrera MD Farmer General: Urszula Aragon RN REFILLS: When in need for refills please call your care team or the office at [phone]. Please include medication name, pharmacy name, and specify 30-day or 90-day supply. Please check with your pharmacy within 24 hours of request for your refill. You must follow up as directed to continue current refills. Thank you! documented in this encounter [facility] 01-10-2022 History of Present illness Narrative Images from the original note were not included. Patient ID: Stevo Elizalde is a 71 y.o. male 1950 Subjective: Stevo Elizalde presents for evaluation of Type 2 diabetes Patient has had diabetes for 16 years. Diagnosed in 2004 Patient has taken Insulin for 10-11 years. Patient has been following with Dr. Carmelita MD. Mr. Elizalde is a 71-year-old male patient that presents today for follow-up in regards to his type 2 diabetes. Patient currently takes basal insulin, he states that he checks blood sugars approximately twice daily. Glucometer reviewed today. He denies any blood sugars less than 80 at this time. Patient's hemoglobin A1c has remained stable at 7.2%. Patient in ECF in the last year secondary to hip fracture and COPD. Metformin stopped due to CRI. Currently taking: Lantus insulin: 10-16 units at bedtime Outpatient Medications Marked as Taking for the 01/10/22 encounter (Office Visit) with Santana Orosco PA-C: Accu-Chek Elli Plus test strp strips, USE TO CHECK BG 3X DAILY. DX CODE E11.9 ON INSULIN . albuterol (PROVENTIL) 2.5 mg /3 mL (0.083 %) nebulizer solution, Take 2.5 mg by nebulization every 4 (four) hours as needed for wheezing . atorvastatin (LIPITOR) 10 MG tablet, Take 1 (one) tablet (10 mg total) by mouth nightly . bisacodyL (DULCOLAX) 10 mg suppository, Insert 10 mg into the rectum nightly as needed for constipation If no results from Milk of Magnesia. . blood-glucose meter kit, Use as instructed . calcium-vitamin D (OS-SHELDON +D) 500 mg-5 mcg (200 unit) per tablet, Take 1 tablet by mouth 2 (two) times a day with meals . clopidogreL (PLAVIX) 75 mg tablet, Take 1 (one) tablet (75 mg total) by mouth daily . fluticasone propion-salmeteroL (ADVAIR DISKUS) 500-50 mcg/dose diskus inhaler, Inhale 1 puff 2 (two) times a day . isosorbide mononitrate (IMDUR) 30 MG 24 hr tablet, Take 2 (two) tablets (60 mg total) by mouth daily . labetaloL (NORMODYNE) 100 MG tablet, Take 1 (one) tablet (100 mg total) by mouth every 12 (twelve) hours . lancets Misc, Use as directed QID. E11.65 on QID insulin regimen . Lantus Solostar U-100 Insulin 100 unit/mL (3 mL) InPn, Inject 16 (sixteen) Units under the skin nightly . loratadine (CLARITIN) 10 mg tablet, Take 10 mg by mouth daily as needed for allergies. nygsliox-ovhl-SW-calcium-mins 9 mg iron-400 mcg Tab, Take 1 tablet by mouth daily . nitroGLYCERIN (NITROSTAT) 0.4 MG SL tablet, Place 0.4 mg under the tongue every 5 (five) minutes as needed for chest pain . pantoprazole (PROTONIX) 40 MG tablet, Take 1 (one) tablet (40 mg total) by mouth daily Start: 06/15/21. PARoxetine (PAXIL) 20 MG tablet, Take 20 mg by mouth daily . pen needle, diabetic 31 gauge x 5/16" Ndle, Use as directed 4 times daily . propranoloL (INDERAL LA) 80 MG 24 hr capsule, Take 1 (one) capsule (80 mg total) by mouth daily . sodium bicarbonate 650 MG tablet, Take 1,300 mg by mouth 2 (two) times a day . tamsulosin (FLOMAX) 0.4 mg capsule, Take 0.4 mg by mouth daily . tiotropium (SPIRIVA) 18 mcg inhalation capsule, Place 18 mcg into inhaler and inhale daily . Review of Systems: Review of Systems Constitutional: Positive for fatigue. Negative for unexpected weight change. HENT: Negative for trouble swallowing. Eyes: Negative for visual disturbance. Respiratory: Positive for shortness of breath (chronic). Negative for cough. Cardiovascular: Negative for chest pain and leg swelling. Gastrointestinal: Negative for abdominal pain, constipation, diarrhea, nausea and vomiting. Endocrine: Negative for polydipsia, polyphagia and polyuria. Genitourinary: Negative for frequency and urgency. Musculoskeletal: Positive for arthralgias. Negative for back pain. Skin: Negative for wound. Neurological: Positive for tremors (per baseline), weakness and numbness. Negative for headaches. Psychiatric/Behavioral: Negative for agitation and sleep disturbance. The patient is not nervous/anxious. The following portions of the patient's history were reviewed and updated as appropriate: allergies, current medications, past family history, past medical history, past social history, past surgical history and problem list. Objective: BP 123/78 Pulse 81 Ht 5' 7" Wt 67.1 kg (148 lb) BMI 23.18 kg/m Wt Readings from Last 3 Encounters: 01/10/22 67.1 kg (148 lb) 08/03/21 63 kg (139 lb) 05/11/21 66.9 kg (147 lb 7.8 oz) Physical Exam: General: alert, appears stated age and cooperative Eyes: conjunctivae/corneas clear. PERRL, EOM's intact. Neck: no adenopathy, supple, symmetrical, trachea midline. Thyroid: No thyromegaly appreciated Lung: clear to auscultation bilaterally Heart: regular rate and rhythm, S1, S2 normal, no murmur, click, rub or gallop Extremities: extremities normal, atraumatic, no cyanosis or edema Feet: Dry skin, Bilateral Feet: warm, good capillary refill and normal DP. Monofilament exam Normal , bilateral lower extremities. Neuro: normal without focal findings, mental status, speech normal, alert and oriented x3 and CHERYL Laboratory Review: BP 123/78 Pulse 81 Ht 5' 7" Wt 67.1 kg (148 lb) BMI 23.18 kg/m 12/14/2021 Hemoglobin A1c 7.2% Creatinine 1.62, estimated GFR 42, K4.3 AST 20, ALT 30 T cholesterol 216, TG 247, HDL 39, LDL 128 TSH 2.51, free T4: 0.9 Microalbumin/creatinine ratio: 213 08/03/21 Hgb A1c: 5.9% 05/09/21 Creat: 1.57; eGFR: 43 K: 4.4 CBC: WBC:7356; Hgb: 8.6; Hct: 26.4.; Plt: 265 07/28/2020 Hemoglobin A1c: 5.9% Creat: 1.68, eGFR: 40 K: 4.6 AST: 20, ALT: 24 Tot chol: 178, T, HDL: 40, LDL: 75 WBC: 5.30, Hgb: 13.6, Hct: 39.6, Plt: 170 TSH: 1.07, Free T4: 1.0 Micro/creat: 380 Assessment/Plan: Dx: 1. Type 2 diabetes mellitus with stage 3b chronic kidney disease, with long-term current use of insulin ([facility]) Comprehensive Metabolic Panel Hemoglobin A1c Type 2 diabetes, under good control Currently taking: Lantus insulin: 16 units at bedtime Current Hemoglobin A1C= Lab Results Component Value Date HGBA1C 7.2 (H) 12/14/2021 HGBA1C 5.9 08/03/2021 HGBA1C 6.4 (H) 04/28/2021 Weight trend: is stable Current diet: carb controlled Current exercise: none Current monitoring regimen: home blood tests - 2 times daily Home blood sugar records: See scanned readings Fasting BG: Pre-lunch BG: Pre-supper BG: Bedtime BG: Any episodes of hypoglycemia? None as of recently NOTES: Retinopathy: Negative Exam within last 12 months: yes Refund Specialist/Technical Editor: Dr. Lepe Other Ophthalmologic Conditions: S/P Right cataract extraction with IOLI and S/P Left cataract extraction with IOLI Nephropathy: Positive -- Follows with Dr. Clif Cheung every 6 months. Lab Results Component Value Date CREATININE 1.62 (H) 12/14/2021 EXTEGFR >=60 09/19/2018 EXTEGFRAFAME >=60 09/19/2018 Microalbumin/creatinine ratio: 213 Is patient on MADELYN inhibitor or angiotensin II receptor danny? yes Lisinopril Peripheral Neuropathy: Positive Reports bilateral numbness and tingling in feet, Stable from previous, currently taking Lyrica 75 mg 2 times daily Autonomic Neuropathy: Negative Hypoglycemia unawareness. Senses low BG at <80 mg/dl. Other: Hyperlipidemia: Positive Currently taking: lovastatin (Mevacore). LFT's WNL 06/2020: Tot chol: 178, T, HDL: 40, LDL: 75 Plan: Patient was instructed to consume a heart healthy low-cholesterol diet to help with triglycerides at this time. Will avoid high potency statin at this time. Hypertension: Positive. Currently taking: amlodipine (Norvasc) and lisinopril (Prinivil) BP: 123/78 Cardiac: Positive Experiencing chest pain No . Experiencing shortness of breath No History of CAD, PVD Follows routinely with: Dr. Herrera, last seen in 03/2020. Biannual follow-up Respiratory: Positive History of COPD, continues to smoke 1 ppd. Previously followed with Dr. Jesus Cruz, will be seeing Dr. Michele or [facility]. Vascular: Positive History of CVA 2009 Feet: Follows with Podiatry: No Decision Science Analyst: History of foot ulceration: No History of amputation: No Thyroid: Lab Results Component Value Date TSH 2.51 12/14/2021 Negative Other: Follows with Dr. Dewitt for chronic anemia. Right hip fracture, repair with TFN nail 04/07/21. Plan: 1. Rx changes: Continue current regimen Lantus insulin: 16 units at bedtime Spoke about utilizing a set dose of basal insulin rather than sliding scale. HgbA1c stable on current regimen otherwise. 2. Education: Reviewed ABCs of diabetes management (respective goals in parentheses): A1C (7.0-8.0), blood pressure (<130/80), and cholesterol (LDL <100). Discussed disease process of type 2 DM Treatment of hypoglycemia Eating plans Insulin administrate, along with sliding scale usage. 3. Compliance at present is estimated to be fair. Efforts to improve compliance (if necessary) will be directed at increased exercise and regular blood sugar monitorin times daily. Also, will be directed at dietary modifications: Limit portion sizes and Limit starches, carbohydrates and concentrated sugar sources 4. Follow up: 4 months 5. Record blood sugar readings as instructed. Call if BG consistently <70 or >250. [phone] Patient has been checking blood glucoses 2 times daily for the past 90 days. Patient needs to continue checking blood glucoses 4 times daily. Blood glucose readings are used to adjust medication or insulin doses for meals, monitor dietary compliance, and adjust for high or low blood glucoses by patient on a daily basis. Blood glucose readings are reviewed at office visits for adjustment in medication regimen and assistance with dietary management, and other self-management issues including exercise, etc. Prognosis: Good. Duration of need for diabetes testing equipment: Permanent #150 strips/month prescribed. 6. Bring blood sugar meter to follow up appointment. Orders Placed This Encounter Procedures Comprehensive Metabolic Panel Hemoglobin A1c Electronically signed by: Santana Orosco PA-C, [facility] 01/10/22 12:55 PM documented in this encounter [facility] 09-09-2021 History of Present illness Narrative This note is in progress. Dictation on: 09/09/2021 6:10 PM by: DYLON GALINDO [[id number]] documented in this encounter [facility] 08-03-2021 History of Present illness Narrative Images from the original note were not included. Patient ID: Stevo Elizalde is a 71 y.o. male 1950 Subjective: Stevo Elizalde presents for evaluation of Type 2 diabetes Patient has had diabetes for 16 years. Diagnosed in 2004 Patient has taken Insulin for 10-11 years. Patient has been following with Dr. Carmelita MD. Mr. Elizalde is a 70-year-old male patient that presents today for follow-up in regards to his type 2 diabetes. Patient currently takes basal insulin, He states that he checks blood sugars approximately twice daily but did not bring BG logs in to be reviewed today. He denies any blood sugars less than 80 at this time. Patient states that his appetite has decreased and thus he only checks blood sugars when he is going to eat something. He reports needing sliding scale Humalog approximately once daily. Patient's hemoglobin A1c has remained stable at 5.9%. Patient in ECF in the last year secondary to hip fracture and COPD. Metformin stopped due to CRI. Currently taking: Lantus insulin: 16 units at bedtime Outpatient Medications Marked as Taking for the 08/03/21 encounter (Office Visit) with David Waters CNP: albuterol (PROVENTIL) 2.5 mg /3 mL (0.083 %) nebulizer solution, Take 2.5 mg by nebulization every 4 (four) hours as needed for wheezing . atorvastatin (LIPITOR) 10 MG tablet, Take 1 (one) tablet (10 mg total) by mouth nightly . bisacodyL (DULCOLAX) 10 mg suppository, Insert 10 mg into the rectum nightly as needed for constipation If no results from Milk of Magnesia. . calcium-vitamin D (calcium-vitamin D) 500 mg(1,250mg) -200 unit per tablet, Take 1 tablet by mouth 2 (two) times a day with meals . clopidogreL (PLAVIX) 75 mg tablet, Take 1 (one) tablet (75 mg total) by mouth daily . insulin glargine (LANTUS) 100 unit/mL injection, Inject 16 (sixteen) Units under the skin nightly . isosorbide mononitrate (IMDUR) 30 MG 24 hr tablet, Take 2 (two) tablets (60 mg total) by mouth daily . labetaloL (NORMODYNE) 100 MG tablet, Take 1 (one) tablet (100 mg total) by mouth every 12 (twelve) hours . loratadine (CLARITIN) 10 mg tablet, Take 10 mg by mouth daily as needed for allergies. dvzlqenu-gnnj-ZK-calcium-mins 9 mg iron-400 mcg Tab, Take 1 tablet by mouth daily . NIFEdipine (ADALAT CC) 30 MG 24 hr tablet, Take 1 (one) tablet (30 mg total) by mouth daily . nitroGLYCERIN (NITROSTAT) 0.4 MG SL tablet, Place 0.4 mg under the tongue every 5 (five) minutes as needed for chest pain . pantoprazole (PROTONIX) 40 MG tablet, Take 1 (one) tablet (40 mg total) by mouth daily Start: 04/13/21. PARoxetine (PAXIL) 20 MG tablet, Take 20 mg by mouth daily . propranoloL (INDERAL LA) 80 MG 24 hr capsule, Take 1 (one) capsule (80 mg total) by mouth daily . sodium bicarbonate 650 MG tablet, Take 1,300 mg by mouth 2 (two) times a day . tamsulosin (FLOMAX) 0.4 mg capsule, Take 0.4 mg by mouth daily . tiotropium (SPIRIVA) 18 mcg inhalation capsule, Place 18 mcg into inhaler and inhale daily . traMADoL (ULTRAM) 50 mg tablet, Take 50 mg by mouth every 4 (four) hours as needed for pain prn . Review of Systems: Review of Systems Constitutional: Positive for fatigue. Negative for unexpected weight change. HENT: Negative for trouble swallowing. Eyes: Negative for visual disturbance. Respiratory: Positive for cough (productive ) and shortness of breath (chronic). Cardiovascular: Negative for chest pain and leg swelling. Gastrointestinal: Negative for abdominal pain, constipation, diarrhea, nausea and vomiting. Endocrine: Negative for polydipsia, polyphagia and polyuria. Genitourinary: Negative for frequency and urgency. Musculoskeletal: Positive for arthralgias. Negative for back pain. Skin: Negative for wound. Neurological: Positive for weakness and numbness. Negative for headaches. Psychiatric/Behavioral: Negative for agitation and sleep disturbance. The patient is not nervous/anxious. The following portions of the patient's history were reviewed and updated as appropriate: allergies, current medications, past family history, past medical history, past social history, past surgical history and problem list. Objective: BP (!) 155/81 Pulse 97 Ht 5' 7" Wt 63 kg (139 lb) BMI 21.77 kg/m Wt Readings from Last 3 Encounters: 08/03/21 63 kg (139 lb) 05/11/21 66.9 kg (147 lb 7.8 oz) 04/07/21 57.2 kg (126 lb 1.7 oz) Physical Exam: General: alert, appears stated age and cooperative Eyes: conjunctivae/corneas clear. PERRL, EOM's intact. Neck: no adenopathy, supple, symmetrical, trachea midline. Thyroid: No thyromegaly appreciated Lung: clear to auscultation bilaterally Heart: regular rate and rhythm, S1, S2 normal, no murmur, click, rub or gallop Extremities: extremities normal, atraumatic, no cyanosis or edema Feet: Dry skin, Bilateral Feet: warm, good capillary refill and normal DP. Monofilament exam Normal , bilateral lower extremities. Neuro: normal without focal findings, mental status, speech normal, alert and oriented x3 and CHERYL Laboratory Review: BP (!) 155/81 Pulse 97 Ht 5' 7" Wt 63 kg (139 lb) BMI 21.77 kg/m Lab Results Component Value Date HGBA1C 5.9 08/03/2021 Glucose (mg/dL) Date Value 05/09/2021 121 (H) Creatinine (mg/dL) Date Value 05/09/2021 1.57 (H) 06/05/2019 1.1 09/19/2018 1.14 Lab Results Component Value Date CHOL 109 03/16/2021 TRIG 139 03/16/2021 HDL 37 (L) 03/16/2021 LDLCALC 44 03/16/2021 Lab Results Component Value Date TSH 1.56 04/28/2021 Lab Results Component Value Date WBC 7.56 05/09/2021 HGB 8.6 (L) 05/09/2021 HCT 26.4 (L) 05/09/2021 MCV 104.3 (H) 05/09/2021 PLT 265 05/09/2021 Component Latest Ref Rng & Units 06/12/2019 07/05/2019 12/11/2019 WBC 4.50 - 11.00 K/mcL 6.09 HGB 13.5 - 17.5 g/dL 11.4 (L) 12.2 (L) 12.7 (L) HCT 41.0 - 53.0 % 33.9 (L) 35.6 (L) 36.4 (L) Platelets 150 - 400 K/mcL 193 POTASSIUM 3.5 - 5.1 mmol/L 3.9 4.1 3.8 CREATININE 0.80 - 1.30 mg/dL 1.26 1.12 1.04 eGFR >=60 mL/min/1.73 m2 57 (L) 66 72 AST 0 - 45 U/L 27 31 ALT 14 - 65 U/L 38 33 CHOLESTEROL 100 - 199 mg/dL 181 169 Triglycerides 30 - 150 mg/dL 190 (H) 198 (H) HDL 40 - 59 mg/dL 50 58 CHOL/HDL RATIO ratio 3.6 2.9 LDL Calculated 10 - 130 mg/dL 93 71 Non HDL Chol. (LDL+VLDL) mg/dL 131 111 Creatinine, Ur mg/dL 56.8 64.9 Protein Creatinine Ratio 0.0 - 0.2 ratio 3.3 (H) 3.6 (H) Protein Urine Random mg/dL 185.9 230.8 Microalb, Ur 0.0 - 1.8 mg/dL 209.0 (H) Microalbumin/Creat Ratio 0 - 25 mg/g crea 3,220 (H) Creatinine, Ur, Random mg/dL 64.9 Hemoglobin A1C 4.0 - 5.6 % 5.7 (H) Estimated Average Glucose 68 - 114 mg/dL 117 (H) MAGNESIUM 1.6 - 2.4 mg/dL 1.5 (L) 1.2 (L) PHOSPHORUS 2.3 - 3.7 mg/dL 3.0 3.5 08/03/21 *labs reviewed 08/03/21 Hgb A1c: 5.9% 05/09/21 Creat: 1.57; eGFR: 43 K: 4.4 CBC: WBC:7356; Hgb: 8.6; Hct: 26.4.; Plt: 265 07/28/2020 Hemoglobin A1c: 5.9% Creat: 1.68, eGFR: 40 K: 4.6 AST: 20, ALT: 24 Tot chol: 178, T, HDL: 40, LDL: 75 WBC: 5.30, Hgb: 13.6, Hct: 39.6, Plt: 170 TSH: 1.07, Free T4: 1.0 Micro/creat: 380 Assessment/Plan: Dx: 1. Type 2 diabetes mellitus with stage 3b chronic kidney disease, with long-term current use of insulin ([facility]) 2. Essential hypertension Type 2 diabetes, under fair control Currently taking: Lantus insulin: 16 units at bedtime Current Hemoglobin A1C= Lab Results Component Value Date HGBA1C 5.9 08/03/2021 HGBA1C 6.4 (H) 04/28/2021 HGBA1C 6.2 (H) 03/16/2021 Weight trend: is stable Current diet: carb controlled Current exercise: none Current monitoring regimen: home blood tests - 2 times daily Home blood sugar records: None to be reviewed Fasting B-139 Pre-lunch BG: Pre-supper BG: Bedtime BG: Any episodes of hypoglycemia? None as of recently NOTES: Patient's last hgb A1c was 5.8% on basal insulin, sliding scale with meal, metformin. PLAN: See below Retinopathy: Negative Exam within last 12 months: yes Date: 11/18 Refund Specialist/Technical Editor: Dr. Lepe Other Ophthalmologic Conditions: S/P Right cataract extraction with IOLI and S/P Left cataract extraction with IOLI Nephropathy: Positive Creat: 1.57, eGFR: 43 05/09/21. Follows with Dr. Clif Cheung every 6 months. Lab Results Component Value Date CREATININE 1.57 (H) 05/09/2021 EXTEGFR >=60 09/19/2018 EXTEGFRAFAME >=60 09/19/2018 Microlbumin/creat ratio: No results found for: EXTMICROALBC Is patient on MADELYN inhibitor or angiotensin II receptor danny? yes Lisinopril Peripheral Neuropathy: Positive Reports bilateral numbness and tingling in feet, Stable from previous, currently taking Lyrica 75 mg 2 times daily Autonomic Neuropathy: Negative Hypoglycemia unawareness. Senses low BG at <80 mg/dl. Other: Hyperlipidemia: Positive Currently taking: lovastatin (Mevacore). LFT's WNL 06/2020: Tot chol: 178, T, HDL: 40, LDL: 75 Plan: Patient was instructed to consume a heart healthy low-cholesterol diet to help with triglycerides at this time. We will recheck lipid panel prior to next appointment. Lab Results Component Value Date AST 21 05/09/2021 ALT 29 05/09/2021 No results found for: EXTCHOL, EXTTRIG, EXTHDL, EXTLDLCALC Hypertension: Positive. Currently taking: amlodipine (Norvasc) and lisinopril (Prinivil) BP: (!) 155/81 Cardiac: Positive Experiencing chest pain No . Experiencing shortness of breath No History of CAD, PVD Follows routinely with: Dr. Herrera, last seen in 03/2020. Biannual follow-up Respiratory: Positive History of COPD, continues to smoke 1 ppd. Previously followed with Dr. Jesus Cruz, will be seeing Dr. Michele or [facility]. Vascular: Positive History of CVA 2009 Feet: Last foot exam: 08/03/21 Follows with Podiatry: No Decision Science Analyst: History of foot ulceration: No History of amputation: No Thyroid: Lab Results Component Value Date TSH 1.56 04/28/2021 Negative Other: Follows with Dr. Dewitt for chronic anemia. Right hip fracture, repair with TFN nail 04/07/21. Plan: 1. Rx changes: Continue current regimen Lantus insulin: 16 units at bedtime Patient denies any recent hypoglycemia but based off his hemoglobin A1c I am concerned he is having any without knowing. Patient was instructed to continue to check blood sugars approximately 3-4 times daily and report them to our office once weekly so that further adjustments can be made as necessary. 2. Education: Reviewed ABCs of diabetes management (respective goals in parentheses): A1C (7.0-8.0), blood pressure (<130/80), and cholesterol (LDL <100). Discussed disease process of type 2 DM Treatment of hypoglycemia Eating plans Insulin administrate, along with sliding scale usage. 3. Compliance at present is estimated to be fair. Efforts to improve compliance (if necessary) will be directed at increased exercise and regular blood sugar monitorin times daily. Also, will be directed at dietary modifications: Limit portion sizes and Limit starches, carbohydrates and concentrated sugar sources 4. Follow up: 3 months 5. Record blood sugar readings as instructed. Call if BG consistently <70 or >250. [phone] Patient has been checking blood glucoses 2 times daily for the past 90 days. Patient needs to continue checking blood glucoses 4 times daily. Blood glucose readings are used to adjust medication or insulin doses for meals, monitor dietary compliance, and adjust for high or low blood glucoses by patient on a daily basis. Blood glucose readings are reviewed at office visits for adjustment in medication regimen and assistance with dietary management, and other self-management issues including exercise, etc. Prognosis: Good. Duration of need for diabetes testing equipment: Permanent #150 strips/month prescribed. 6. Bring blood sugar meter to follow up appointment. Orders Placed This Encounter Procedures Comprehensive Metabolic Panel CBC and Differential Hemoglobin A1c Microalbumin/Creatinine Ratio, UR Random Lipid Panel TSH T4, Free POC Hemoglobin A1C Electronically Signed by: David Waters CNP 08/03/21 11:44 AM documented in this encounter [facility] 05-21-2021 History of Present illness Narrative Dictation on: 05/21/2021 6:00 PM by: DYLON GALINDO [[id number]] documented in this encounter [facility] 05-11-2021 Miscellaneous Notes Reviewing AVS and patients . Stated pharmacy incorrect. Called Dr. Alvarez to edit medications and pharmacy. Made adjustments while on the phone with this RN. Will wait for updated AVS and review with patient and . OCCUPATIONAL THERAPY VISIT VARIANCE NOTE Attempted to see patient at this time, but unable secondary to: Refused. Pt reported he was discharging home this date and denied any needs. Will follow up as appropriate. Encouraged patient to sit at side of bed and or get in chair to eat breakfast. Patient declined at this time. Problem: Actual or potential alteration in health Goal: Absence of healthcare acquired conditions Outcome: Partially Met Goal: Knowledge of Interdisciplinary Plan of Care Outcome: Partially Met Goal: Knowledge of Enviroment Outcome: Partially Met Problem: Pressure Ulcer - Risk of Goal: Absence of pressure ulcer Outcome: Partially Met Problem: Pain Goal: Manage acute pain Outcome: Partially Met Goal: Manage chronic pain Outcome: Partially Met Goal: Reduced pain sensation Outcome: Partially Met Goal: Achievement of comfort function goal Outcome: Partially Met Problem: Falls, Risk of Goal: Absence of falls Outcome: Partially Met Problem: Actual or potential alteration in health Goal: Absence of healthcare acquired conditions Outcome: Partially Met Goal: Knowledge of Interdisciplinary Plan of Care Outcome: Partially Met Goal: Knowledge of Enviroment Outcome: Partially Met Problem: Pressure Ulcer - Risk of Goal: Absence of pressure ulcer Outcome: Partially Met Problem: Pain Goal: Manage acute pain Outcome: Partially Met Goal: Manage chronic pain Outcome: Partially Met Goal: Reduced pain sensation Outcome: Partially Met Goal: Achievement of comfort function goal Outcome: Partially Met Problem: Falls, Risk of Goal: Absence of falls Outcome: Partially Met Problem: Actual or potential alteration in health Goal: Knowledge of Interdisciplinary Plan of Care Outcome: Met Goal: Knowledge of Enviroment Outcome: Met Problem: Actual or potential alteration in health Goal: Absence of healthcare acquired conditions Outcome: Partially Met Problem: Pressure Ulcer - Risk of Goal: Absence of pressure ulcer Outcome: Partially Met Problem: Pain Goal: Manage acute pain Outcome: Partially Met Goal: Manage chronic pain Outcome: Partially Met Goal: Reduced pain sensation Outcome: Partially Met Goal: Achievement of comfort function goal Outcome: Partially Met Problem: Falls, Risk of Goal: Absence of falls Outcome: Partially Met Problem: Actual or potential alteration in health Goal: Absence of healthcare acquired conditions Outcome: Partially Met Goal: Knowledge of Interdisciplinary Plan of Care Outcome: Partially Met Goal: Knowledge of Enviroment Outcome: Partially Met Problem: Pressure Ulcer - Risk of Goal: Absence of pressure ulcer Outcome: Partially Met Problem: Pain Goal: Manage acute pain Outcome: Partially Met Goal: Manage chronic pain Outcome: Partially Met Goal: Reduced pain sensation Outcome: Partially Met Goal: Achievement of comfort function goal Outcome: Partially Met Problem: Falls, Risk of Goal: Absence of falls Outcome: Partially Met Problem: Actual or potential alteration in health Goal: Absence of healthcare acquired conditions Outcome: Partially Met Goal: Knowledge of Interdisciplinary Plan of Care Outcome: Partially Met Goal: Knowledge of Enviroment Outcome: Partially Met Problem: Pressure Ulcer - Risk of Goal: Absence of pressure ulcer Outcome: Partially Met Problem: Pain Goal: Manage acute pain Outcome: Partially Met Goal: Manage chronic pain Outcome: Partially Met Goal: Reduced pain sensation Outcome: Partially Met Goal: Achievement of comfort function goal Outcome: Partially Met Problem: Falls, Risk of Goal: Absence of falls Outcome: Partially Met Problem: Actual or potential alteration in health Goal: Absence of healthcare acquired conditions Outcome: Partially Met Goal: Knowledge of Interdisciplinary Plan of Care Outcome: Partially Met Goal: Knowledge of Enviroment Outcome: Partially Met Problem: Pressure Ulcer - Risk of Goal: Absence of pressure ulcer Outcome: Partially Met Problem: Pain Goal: Manage acute pain Outcome: Partially Met Goal: Manage chronic pain Outcome: Partially Met Goal: Reduced pain sensation Outcome: Partially Met Goal: Achievement of comfort function goal Outcome: Partially Met Problem: Falls, Risk of Goal: Absence of falls Outcome: Partially Met Problem: Actual or potential alteration in health Goal: Absence of healthcare acquired conditions Outcome: Partially Met Goal: Knowledge of Interdisciplinary Plan of Care Outcome: Partially Met Goal: Knowledge of Enviroment Outcome: Partially Met Problem: Pressure Ulcer - Risk of Goal: Absence of pressure ulcer Outcome: Partially Met Problem: Pain Goal: Manage acute pain Outcome: Partially Met Goal: Manage chronic pain Outcome: Partially Met Goal: Reduced pain sensation Outcome: Partially Met Goal: Achievement of comfort function goal Outcome: Partially Met Problem: Actual or potential alteration in health Goal: Absence of healthcare acquired conditions Outcome: Partially Met Goal: Knowledge of Interdisciplinary Plan of Care Outcome: Partially Met Goal: Knowledge of Enviroment Outcome: Partially Met Problem: Pressure Ulcer - Risk of Goal: Absence of pressure ulcer Outcome: Partially Met Problem: Pain Goal: Manage acute pain Outcome: Partially Met Goal: Manage chronic pain Outcome: Partially Met Goal: Reduced pain sensation Outcome: Partially Met Goal: Achievement of comfort function goal Outcome: Partially Met Problem: Actual or potential alteration in health Goal: Absence of healthcare acquired conditions Outcome: Partially Met Goal: Knowledge of Interdisciplinary Plan of Care Outcome: Partially Met Goal: Knowledge of Enviroment Outcome: Partially Met Problem: Actual or potential alteration in health Goal: Absence of healthcare acquired conditions Outcome: Met Goal: Knowledge of Interdisciplinary Plan of Care Outcome: Met Problem: Pressure Ulcer - Risk of Goal: Absence of pressure ulcer Outcome: Met Problem: Falls, Risk of Goal: Absence of falls Outcome: Met Problem: Pain Goal: Manage acute pain Outcome: Partially Met Goal: Manage chronic pain Outcome: Partially Met Goal: Reduced pain sensation Outcome: Partially Met Goal: Achievement of comfort function goal Outcome: Partially Met Problem: Actual or potential alteration in health Goal: Absence of healthcare acquired conditions Outcome: Partially Met Goal: Knowledge of Interdisciplinary Plan of Care Outcome: Partially Met Goal: Knowledge of Enviroment Outcome: Partially Met Problem: Pressure Ulcer - Risk of Goal: Absence of pressure ulcer Outcome: Partially Met Problem: Pain Goal: Manage acute pain Outcome: Partially Met Goal: Manage chronic pain Outcome: Partially Met Goal: Reduced pain sensation Outcome: Partially Met Goal: Achievement of comfort function goal Outcome: Partially Met Problem: Actual or potential alteration in health Goal: Absence of healthcare acquired conditions Outcome: Partially Met Goal: Knowledge of Interdisciplinary Plan of Care Outcome: Partially Met Goal: Knowledge of Enviroment Outcome: Partially Met Problem: Pressure Ulcer - Risk of Goal: Absence of pressure ulcer Outcome: Partially Met Problem: Pain Goal: Manage acute pain Outcome: Partially Met Goal: Manage chronic pain Outcome: Partially Met Goal: Reduced pain sensation Outcome: Partially Met Goal: Achievement of comfort function goal Outcome: Partially Met Problem: Falls, Risk of Goal: Absence of falls Outcome: Partially Met Problem: Actual or potential alteration in health Goal: Absence of healthcare acquired conditions Outcome: Partially Met Goal: Knowledge of Interdisciplinary Plan of Care Outcome: Partially Met Goal: Knowledge of Enviroment Outcome: Partially Met Problem: Actual or potential alteration in health Goal: Absence of healthcare acquired conditions Outcome: Met Goal: Knowledge of Interdisciplinary Plan of Care Outcome: Met Goal: Knowledge of Enviroment Outcome: Met Problem: Pressure Ulcer - Risk of Goal: Absence of pressure ulcer Outcome: Met Problem: Pain Goal: Manage acute pain Outcome: Met Goal: Manage chronic pain Outcome: Met Goal: Reduced pain sensation Outcome: Met Goal: Achievement of comfort function goal Outcome: Met Problem: Falls, Risk of Goal: Absence of falls Outcome: Met Problem: Actual or potential alteration in health Goal: Absence of healthcare acquired conditions Outcome: Partially Met Goal: Knowledge of Interdisciplinary Plan of Care Outcome: Partially Met Goal: Knowledge of Enviroment Outcome: Partially Met Problem: Pressure Ulcer - Risk of Goal: Absence of pressure ulcer Outcome: Partially Met Problem: Pain Goal: Manage acute pain Outcome: Partially Met Goal: Manage chronic pain Outcome: Partially Met Goal: Reduced pain sensation Outcome: Partially Met Goal: Achievement of comfort function goal Outcome: Partially Met Problem: Falls, Risk of Goal: Absence of falls Outcome: Partially Met Associated Problem(s): Acute renal failure superimposed on stage 3a chronic kidney disease (HCC) Patient's ultrasound showed only modest post residual urine. Patient's renal functions remained stable potassium is stable Problem: Actual or potential alteration in health Goal: Absence of healthcare acquired conditions Outcome: Partially Met Goal: Knowledge of Interdisciplinary Plan of Care Outcome: Partially Met Goal: Knowledge of Enviroment Outcome: Partially Met Problem: Pressure Ulcer - Risk of Goal: Absence of pressure ulcer Outcome: Partially Met Problem: Pain Goal: Manage acute pain Outcome: Partially Met Goal: Manage chronic pain Outcome: Partially Met Goal: Reduced pain sensation Outcome: Partially Met Goal: Achievement of comfort function goal Outcome: Partially Met Problem: Falls, Risk of Goal: Absence of falls Outcome: Partially Met Encouraged patient to get up in chair. Declines wanting to get in chair. States "maybe later". Problem: Actual or potential alteration in health Goal: Absence of healthcare acquired conditions Outcome: Partially Met Goal: Knowledge of Interdisciplinary Plan of Care Outcome: Partially Met Goal: Knowledge of Enviroment Outcome: Partially Met Problem: Actual or potential alteration in health Goal: Absence of healthcare acquired conditions Outcome: Partially Met Goal: Knowledge of Interdisciplinary Plan of Care Outcome: Partially Met Goal: Knowledge of Enviroment Outcome: Partially Met Problem: Pressure Ulcer - Risk of Goal: Absence of pressure ulcer Outcome: Partially Met Problem: Pain Goal: Manage acute pain Outcome: Partially Met Goal: Manage chronic pain Outcome: Partially Met Goal: Reduced pain sensation Outcome: Partially Met Goal: Achievement of comfort function goal Outcome: Partially Met Problem: Falls, Risk of Goal: Absence of falls Outcome: Partially Met Problem: Actual or potential alteration in health Goal: Absence of healthcare acquired conditions Outcome: Partially Met Goal: Knowledge of Interdisciplinary Plan of Care Outcome: Partially Met Goal: Knowledge of Enviroment Outcome: Partially Met Problem: Pressure Ulcer - Risk of Goal: Absence of pressure ulcer Outcome: Partially Met Problem: Pain Goal: Manage acute pain Outcome: Partially Met Goal: Manage chronic pain Outcome: Partially Met Goal: Reduced pain sensation Outcome: Partially Met Goal: Achievement of comfort function goal Outcome: Partially Met Problem: Falls, Risk of Goal: Absence of falls Outcome: Partially Met Pt's medina removed per order. Associated Problem(s): Chronic obstructive pulmonary disease (HCC) Stable Problem: Actual or potential alteration in health Goal: Absence of healthcare acquired conditions Outcome: Partially Met Goal: Knowledge of Interdisciplinary Plan of Care Outcome: Partially Met Goal: Knowledge of Enviroment Outcome: Partially Met Problem: Pressure Ulcer - Risk of Goal: Absence of pressure ulcer Outcome: Partially Met Problem: Pain Goal: Manage acute pain Outcome: Partially Met Goal: Manage chronic pain Outcome: Partially Met Goal: Reduced pain sensation Outcome: Partially Met Goal: Achievement of comfort function goal Outcome: Partially Met Occupational Therapy Plan of Care Certification Note Coded Admission Diagnosis Metabolic encephalopathy [G93.41] Hyperkalemia [E87.5] Acute UTI [N39.0] ELBA (acute kidney injury) ([facility]) [N17.9] H/O: CVA (cerebrovascular accident) [Z86.73] Acute renal failure superimposed on chronic kidney disease, unspecified CKD stage, unspecified acute renal failure type ([facility]) [N17.9, N18.9] OT Functional Diagnosis: Z73.6 Disability affecting daily living OT Goals Encounter Problems (Active) Problem: Impaired Strength Dates: Start: 04/30/21 Disciplines: OT Goal: OT- Strength Other Dates: Start: 04/30/21 Expected End: 05/07/21 Description: OT-Pt will demonstrate mod I with HEP targeting BUE strengthening for increased independence and safety with I/ADL and mobility tasks. Disciplines: OT Intervention: EDUCATION, THERAPEUTIC EXERCISE Frequency: PRN Dates: Start: 04/30/21 Problem: Mobility - Impaired Dates: Start: 04/30/21 Disciplines: OT Goal: OT- bed mobility Dates: Start: 04/30/21 Expected End: 05/07/21 Description: OT - Patient will complete bed mobility with stand by assist in preparation of ADL's. Disciplines: OT Goal: OT- toilet transfer Dates: Start: 04/30/21 Expected End: 05/07/21 Description: OT - Patient will complete toilet transfer with contact guard in preparation for ADL's. Disciplines: OT Goal: OT- navigation Dates: Start: 04/30/21 Expected End: 05/07/21 Description: OT - Patient will navigate environment with contact guard for safe return to home/community. Disciplines: OT Goal: OT- Mobility Other Dates: Start: 04/30/21 Expected End: 05/07/21 Description: OT- Pt will perform sit to stand with CGA. Disciplines: OT Intervention: EDUCATION, FUNCTIONAL MOBILITY TRAINING Frequency: PRN Dates: Start: 04/30/21 Problem: Self-care Deficit Dates: Start: 04/30/21 Disciplines: OT Goal: OT- LB dressing Dates: Start: 04/30/21 Expected End: 05/07/21 Description: OT - Patient will complete LB dressing with minimal assist to improve self care function. Disciplines: OT Goal: OT- toileting Dates: Start: 04/30/21 Expected End: 05/07/21 Description: OT - Patient will complete toileting with minimal assist to improve self care function. Disciplines: OT Intervention: EDUCATION, ADAPTIVE EQUIPMENT TRAINING Frequency: PRN Dates: Start: 04/30/21 Description: REMINDER(s): Provide instruction on adaptive equipment. Intervention: EDUCATION, ADL/IADL RETRAINING Frequency: PRN Dates: Start: 04/30/21 Intervention: EDUCATION, COMPENSATORY TECHNIQUE TRAINING Frequency: PRN Dates: Start: 04/30/21 Frequency of Treatment (times per week): 5x/week This Occupational Therapy Plan of Care will be carried out until: 1.) The OT plan has been resolved or 2.) The patient is discharged from the acute care hospital Problem: Actual or potential alteration in health Goal: Absence of healthcare acquired conditions Outcome: Partially Met Goal: Knowledge of Interdisciplinary Plan of Care Outcome: Partially Met Goal: Knowledge of Enviroment Outcome: Partially Met Problem: Pressure Ulcer - Risk of Goal: Absence of pressure ulcer Outcome: Partially Met Problem: Pain Goal: Manage acute pain Outcome: Partially Met Goal: Manage chronic pain Outcome: Partially Met Goal: Reduced pain sensation Outcome: Partially Met Goal: Achievement of comfort function goal Outcome: Partially Met Problem: Falls, Risk of Goal: Absence of falls Outcome: Partially Met Physical Therapy Plan of Care Certification Note Coded Admission Diagnosis Metabolic encephalopathy [G93.41] Hyperkalemia [E87.5] Acute UTI [N39.0] ELBA (acute kidney injury) (HCC) [N17.9] H/O: CVA (cerebrovascular accident) [Z86.73] Acute renal failure superimposed on chronic kidney disease, unspecified CKD stage, unspecified acute renal failure type (HCC) [N17.9, N18.9] PT Functional Diagnosis: R26.2 Difficulty in walking, not elsewhere classified PT Goals Encounter Problems (Active) Problem: Impaired Strength Dates: Start: 04/30/21 Disciplines: PT Goal: PT- strengthening Dates: Start: 04/30/21 Expected End: 05/07/21 Description: PT - Pt will increase B LE Strength to 4+/5 to increase safety with gait and transfers Disciplines: PT Problem: Mobility - Impaired Dates: Start: 04/30/21 Disciplines: PT Goal: PT- sit to stand transfer Dates: Start: 04/30/21 Expected End: 05/07/21 Description: PT - Patient will perform sit to/from stand transfer with stand by assist to improve functional mobility and safety. Disciplines: PT Goal: PT- dynamic balance Dates: Start: 04/30/21 Expected End: 05/07/21 Description: PT - Patient will perform standing dynamic balance activities with device with stand by assist to improve functional mobility and safety. Disciplines: PT Goal: PT- ambulation Dates: Start: 04/30/21 Expected End: 05/07/21 Description: PT - Patient will ambulate 25 feet with device with stand by assist to improve functional mobility and safety. Disciplines: PT Intervention: EDUCATION, ASSISTIVE DEVICE TRAINING Frequency: PRN Dates: Start: 04/30/21 Intervention: EDUCATION, BALANCE TRAINING Frequency: PRN Dates: Start: 04/30/21 Description: REMINDER(s): Reinforce education provided by Physical Therapy related to balance training. Intervention: EDUCATION, GAIT TRAINING Frequency: PRN Dates: Start: 04/30/21 Intervention: EDUCATION, THERAPEUTIC EXERCISE Frequency: PRN Dates: Start: 04/30/21 Intervention: EDUCATION, TRANSFER TRAINING Frequency: PRN Dates: Start: 04/30/21 Intervention: EDUCATION, PRECAUTIONS Frequency: PRN Dates: Start: 04/30/21 Frequency of Treatment (times per week): up to 5 day sper week This physical Therapy Plan of Care will be carried out until: 1.) The PT plan has been resolved or 2.) The patient is discharged from the acute care hospital Problem: Actual or potential alteration in health Goal: Absence of healthcare acquired conditions Outcome: Partially Met Goal: Knowledge of Interdisciplinary Plan of Care Outcome: Partially Met Goal: Knowledge of Enviroment Outcome: Partially Met Problem: Pressure Ulcer - Risk of Goal: Absence of pressure ulcer Outcome: Partially Met Problem: Pain Goal: Manage acute pain Outcome: Partially Met Goal: Manage chronic pain Outcome: Partially Met Goal: Reduced pain sensation Outcome: Partially Met Goal: Achievement of comfort function goal Outcome: Partially Met Problem: Falls, Risk of Goal: Absence of falls Outcome: Partially Met Associated Problem(s): Type 2 diabetes mellitus with stage 3b chronic kidney disease, with long-term current use of insulin (HCC) Blood sugar is stable. Associated Problem(s): Urinary retention Confirmed by post void residual. As Medina is out now we will check post residual volume by ultrasound. Associated Problem(s): Urinary tract infection associated with indwelling urethral catheter (HCC) Resolved. Associated Problem(s): Anemia due to stage 3a chronic kidney disease (HCC) Hemoglobin stable. Associated Problem(s): Essential hypertension Blood pressure is better. Associated Problem(s): Sepsis with acute renal failure without septic shock (HCC) Present on admission now resolved. Off of antibiotics. Problem: Actual or potential alteration in health Goal: Absence of healthcare acquired conditions Outcome: Partially Met Goal: Knowledge of Interdisciplinary Plan of Care Outcome: Partially Met Goal: Knowledge of Enviroment Outcome: Partially Met Problem: Pressure Ulcer - Risk of Goal: Absence of pressure ulcer Outcome: Partially Met Problem: Pain Goal: Manage acute pain Outcome: Partially Met Goal: Manage chronic pain Outcome: Partially Met Goal: Reduced pain sensation Outcome: Partially Met Goal: Achievement of comfort function goal Outcome: Partially Met Problem: Falls, Risk of Goal: Absence of falls Outcome: Partially Met Noted urine culture 04/27 growing MRSA- will add vancomycin Continue IV zosyn onemore day till blood and urine cultures finalized Noted patient's PCP is dr Pennington, will notify him to assume care. [facility] state group will sign off. Problem: Actual or potential alteration in health Goal: Absence of healthcare acquired conditions Outcome: Partially Met Goal: Knowledge of Interdisciplinary Plan of Care Outcome: Partially Met Goal: Knowledge of Enviroment Outcome: Partially Met Problem: Pressure Ulcer - Risk of Goal: Absence of pressure ulcer Outcome: Partially Met Problem: Pain Goal: Manage acute pain Outcome: Partially Met Goal: Manage chronic pain Outcome: Partially Met Goal: Reduced pain sensation Outcome: Partially Met Goal: Achievement of comfort function goal Outcome: Partially Met Problem: Falls, Risk of Goal: Absence of falls Outcome: Partially Met Problem: Actual or potential alteration in health Goal: Knowledge of Enviroment Outcome: Met Problem: Actual or potential alteration in health Goal: Absence of healthcare acquired conditions Outcome: Partially Met Goal: Knowledge of Interdisciplinary Plan of Care Outcome: Partially Met Problem: Pressure Ulcer - Risk of Goal: Absence of pressure ulcer Outcome: Partially Met Problem: Pain Goal: Manage acute pain Outcome: Partially Met Goal: Manage chronic pain Outcome: Partially Met Goal: Reduced pain sensation Outcome: Partially Met Goal: Achievement of comfort function goal Outcome: Partially Met VBG handed to dr desai documented in this encounter [facility] 05-11-2021 History of Present illness Narrative COMPLEX DISCHARGE Date: 05/11/2021 Time: 10:46 AM Patient Name: Stevo Elizalde Date of : 1950 Sex: Male Patient Information Primary Caregiver: Other (Comment) ([facility] [place] [facility]) Patient and spouse wanting patient discharged home today with home health care. Set up with [facility] by wash tank tender Anya. Ambulatory orders in and signed, updated nursing Source of Information: Patient, Significant Other Living Arrangements: Facility Support Systems: Spouse/significant other Assistance Needed: Moderate Type of Residence: shelter Care Facility Name: [facility] Prior to Admission Home Care Services: Yes Type of Current Home Care Services: Home health care Patient expects to be discharged to:: [facility] [place] Does the patient need discharge transport arranged?: Yes [facility] Disposition D/C Disposition: Prison Facility Agency/Destination: [facility] Estimated Length of Stay (ELOS): 16 ELOS Discussed with Patient / Family?: Yes Post-Acute Patient Choice 1: [facility] Post-Acute Patient Choice 2: [facility] How did you provide the Post Acute Choices: Electronically sent Regulatory Documentation: Medicare Regulatory Documentation Status: Signed Signed: Self DISCHARGE PLAN PROGRESS NOTE Date: 05/11/2021 Time: 10:16 AM Patient Name: Stevo Elizalde Date of : 1950 Sex: Male Communicated with patient's spouse Isabelle, who chose 1-[facility], 2-[facility]. Referral(s) sent, awaiting follow-up. [employer] Set Staff Fitter communicated with Raegan with [facility] who reports acceptance. No pre-cert required. Elementary School Teacher and Farmer General, JAYDEN Juan and Kiran STACK CM, updated via Secure Chat. [facility] Disposition D/C Disposition: Prison Facility Agency/Destination: [facility] Estimated Length of Stay (ELOS): 16 ELOS Discussed with Patient / Family?: Yes Post-Acute Patient Choice 1: [facility] Post-Acute Patient Choice 2: Your Choice How did you provide the Post Acute Choices: Electronically sent Regulatory Documentation: Medicare Regulatory Documentation Status: Signed Signed: Self Anticipated Discharge Plan Anticipated HME: None Anticipated Home Care Needs: None Anticipated Facility Type[facility] Occupational Therapy OCCUPATIONAL THERAPY TREATMENT NOTE Based on current status, anticipate need for new goal(s) to be created. Will communicate with OTR/L for updated POC. Skilled Therapy Needs After Discharge Anticipate Resolution of Current Assessment Limitations Including: Pain, Mechanical Barriers, Social Support Are Skilled Therapy Services Needed After Discharge: Yes Intensity of Skilled Therapy: Up to 5 days per week (progressing ) Anticipated Duration of Skilled Therapy: Duration 10 - 30 days DME Recommendation: To be determined at next level of care Rehab Potential: Good Family requesting pt to go home with pt demonstrating improvements since OT evaluation. If pt would discharge home 22/05 supervision recommended. Outcomes Measures Prior Function Daily Activity Raw Score: 24 Prior Function Daily Activity % Impaired: 0% AM-PAC Daily Activity Raw Score: 20 AM-PAC Daily Activity % Impaired: 38.32% Therapy Precautions Orthotic Devices: No Weight Bearing Status: WFL General Rehab Precautions: Fall risk Cognition Overall Cognitive Status: Within Functional Limits Arousal/Alertness: Appropriate responses to stimuli Orientation Level: Oriented to person, Oriented to time, Oriented to place, With choices, With cues, Disoriented to situation Executive functioning: Insight, Min impairment Safety Judgment: Decreased awareness of need for safety Problem Solving: Assistance required to implement solutions Attention: Attends to quiet environment Hearing Status: WFL Social Interaction: Appropriate, Cooperative Comments: Followed all commands throughout tx session. ADL Grooming: Stand by assist (standing at sink ) Grooming - Skilled Intervention Provided: monitored patient's safety and tolerance Grooming - For: compensatory strategies Grooming - Resulting In: improved activity tolerance LE Dressing: Stand by assist, Maximal assist (SBA for LLE; Max RLE ) LE Dressing - Skilled Intervention Provided: verbal cues LE Dressing - For: LE management LE Dressing - Resulting In: improved performance with ADLs Bed Mobility Supine to Sit: Stand by assist Sit to Supine: Stand by assist Glass Blower Helper: bedrails Functional Transfers Sit to Stand: Stand by assist Bed to Chair Transfers: Stand by assist Toilet Transfers: Stand by assist Glass Blower Helper: wheeled walker Skilled Intervention Provided: verbal cues, monitoring patient response with activity For: controlled descent Resulting In: improved performance Exercise Supine Exercises: HOB elevated ~15 degrees completed BUE AROM exercises 1x10 in all planes to increase joint ROM and maximize muscle integrity for independence in ADLs and fxl mobility. Education on completing daily with pt and spouse verbalizing understanding. Additional Treatment Details Completed ambulation from EOB to bathroom utilizing w/w. Cues for proper hand placement during descent of transfers. Stood at sink ~3 minutes completing simple grooming tasks. Pt reports utilizing sock aide for RLE to don socks with pt demonstrating difficulty with task. Home Living Obtained Home Living and PLOF info from: Patient Lives With: Spouse Type of Home: House Home Layout: One level, Laundry in basement Steps to enter home: Ramped entrance Bathroom Shower/Tub: Tub/shower unit Bathroom Toilet: Standard Bathroom Equipment: Grab bars in shower, Shower chair, Hand-held showerhead, Grab bars around toilet Mobility Equipment: Cane, Wheelchair - manual, Wheeled walker Additional Objective Details - Home Living: pt was at rehab in [place] for a hip fracture sustained ~ 1 month ago. pt came to [facility] from [facility] Prior Level of Function Receives Help From: Spouse Level of [place] - Transfers/Ambulation/Mobility: Independent with functional transfers, Independent with household ambulation, Independent with community ambulation Level of [place] - ADLs: Independent Level of [place] - Homemaking: Independent Driving: Patient does not drive For complete objective data, detailed plan of care and patient education refer to: OT Evaluation flowsheet, OT Evaluation and Treatment flowsheet, OT Treatment flowsheet, patient Plan of Care, Plan of Care progress note, and Patient Education. This note stands as the current Discharge Summary upon patient discharge from the hospital or completion of Occupational Therapy Plan of Care. Physical Therapy PHYSICAL THERAPY TREATMENT NOTE Skilled Therapy Needs After Discharge Anticipate Resolution of Current Assessment Limitations Including: Mechanical Barriers, Social Support Are Skilled Therapy Services Needed After Discharge: Yes Intensity of Skilled Therapy: Up to 5 days per week Anticipated Duration of Skilled Therapy: Duration 10 - 30 days Rehab Potential: Good PT Caregiver Readiness Working toward discharge home: Yes PT Caregiver Training: Completed Who was trained?: Spouse Provided training for: Assistive device use - completed, Precautions - completed, Overall home safety - completed Outcomes Measures Prior Function - Basic Mobility Raw Score: 24 Points Prior Function - Basic Mobility % Impaired: 0% AM-PAC Basic Mobility Raw Score: 17 Points AM-PAC Basic Mobility % Impaired: 43.83% Activity Tolerance Activity Tolerance: Tolerates 20 - 30 min activity with multiple rests Therapy Precautions Orthotic Devices: No Weight Bearing Status: WFL General Rehab Precautions: Fall risk (up with 1 assist with walker ) Bed Mobility Rolling: Contact guard assist, Minimal assist Supine to Sit: Minimal assist Sit to Supine: Modified independent Skilled Intervention Provided: verbal cues For: UE management, LE positioning, sequencing of movement Resulting in: improved functional independence Transfers Sit to Stand: Contact guard assist Bed to Chair: Contact guard assist Stand Pivot Transfers: Contact guard assist Glass Blower Helper: wheeled walker Pt educated on safe transfer tech with good carryover Gait/Locomotion Gait Assistance: Contact guard assist Assistive Device: wheeled walker Distance: 40 Feet Rest Breaks: Yes Rest Break Position: seated Rest Break Duration: 1-2 mins Additional Gait Trial 2: Yes Gait Assistance Trial 2: Contact guard assist Assistive Device Trial 2: wheeled walker Distance Trial 2: 40 Pattern: step through, R decreased stance time, R impaired heel strike, L impaired heel strike, R decreased step length, L decreased step length, antalgic Weight Bearing Status: able to maintain Environment/Terrain: open/community environment, multiple distractions Skilled Intervention Provided: verbal cues For: gait sequence, gait technique, LE positioning, fall prevention Resulting in: decreased gait impairments, improved performance, improved activity tolerance, improved safety Exercise Additional Treatment Details Home Living Obtained Home Living and PLOF info from: Patient Lives With: Spouse Type of Home: House Home Layout: One level, Laundry in basement Steps to enter home: Ramped entrance Bathroom Shower/Tub: Tub/shower unit Bathroom Toilet: Standard Bathroom Equipment: Grab bars in shower, Shower chair, Hand-held showerhead, Grab bars around toilet Mobility Equipment: Cane, Wheelchair - manual, Wheeled walker Additional Objective Details - Home Living: pt was at rehab in [place] for a hip fracture sustained ~ 1 month ago. pt came to [facility] from [facility] Prior Level of Function Receives Help From: Spouse Level of [place] - Transfers/Ambulation/Mobility: Independent with functional transfers, Independent with household ambulation, Independent with community ambulation Level of [place] - ADLs: Independent Level of [place] - Homemaking: Independent Driving: Patient does not drive For complete objective data, detailed plan of care and patient education refer to: PT Evaluation flowsheet, PT Evaluation and Treatment flowsheet, PT Treatment flowsheet, patient Plan of Care, Plan of Care progress note, and Patient Education. This note stands as the current Discharge Summary upon patient discharge from the hospital or completion of Physical Therapy Plan of Care. DISCHARGE PLAN PROGRESS NOTE Date: 05/10/2021 Time: 12:54 PM Precert remains pending for [facility]. No updated therapy notes to send at this time. [id number]- Spoke with spouse Isabelle. Isabelle confirmed plan will be for home with home health care. Overview of home health care and frequency discussed. Isbaelle stepped out so [facility] list was texted to her. This worker's contact number listed for return call. Secure chat sent to Dr. Alvarez with an update. Updated Kirna, day care home mother, via secure chat. Brii with [facility] notified. Patient Name: Stevo Elizalde Date of : 1950 Sex: Male [facility] Disposition D/C Disposition: [facility] Agency/Destination: [facility] Estimated Length of Stay (ELOS): 16 ELOS Discussed with Patient / Family?: Yes Regulatory Documentation: Medicare IM Regulatory Documentation Status: Certified (LETTER LEFT FOR SLEEPING PT) Anticipated Discharge Plan Anticipated HME: None Anticipated Home Care Needs: None Anticipated Facility Type: [facility] facility Patient was admitted from the local senior care with urinary tract infection treated and stable Waiting to go to back to the senior care for recertification Patient is a posterior right hip fracture repair underwent physical therapy and patient is says he is going to bathroom but uses urinals at the bedside Hypertension under reasonable control on Procardia and labetalol Hyperlipidemia on treatment Physical examination findings unchanged Stable overall no new findings Plan waiting to go to senior care. Internal medicine Inpatient Follow-up 05/09/2021 Bryce Alvarez MD [facility] Patient: Stevo Elizalde Date of : 1950 (71 y.o.) PCP: Phyllis Mae MD ASSESSMENT/PLAN: Stevo Elizalde 71 y.o. male Sepsis with acute renal failure without septic shock ([facility]) Assessment & Plan Present on admission now resolved. Off of antibiotics. * Acute renal failure superimposed on stage 3a chronic kidney disease ([facility]) Assessment & Plan Patient's ultrasound showed only modest post residual urine. Patient's renal functions remained stable potassium is stable Type 2 diabetes mellitus with stage 3b chronic kidney disease, with long-term current use of insulin ([facility]) Assessment & Plan Blood sugar is stable. Essential hypertension Assessment & Plan Blood pressure is better. Anemia due to stage 3a chronic kidney disease ([facility]) Assessment & Plan Hemoglobin stable. Urinary tract infection associated with indwelling urethral catheter ([facility]) Assessment & Plan Resolved. Urinary retention Assessment & Plan Confirmed by post void residual. As [place] is out now we will check post residual volume by ultrasound. Chronic obstructive pulmonary disease ([facility]) Assessment & Plan Stable Summary of assessment and Plan patient's renal functions remained stable overall patient is stable. Plan whenever bed is available/insurance pre-CERT goes through patient will be discharged to senior care for physical therapy. SUBJECTIVE: History Since Last Visit: Patient has no complaints. Review of Systems: Review of Systems Constitutional: Negative for activity change, appetite change, chills, diaphoresis, fatigue, fever and unexpected weight change. HENT: Negative for congestion. Eyes: Negative for visual disturbance. Respiratory: Negative for apnea, cough, choking, chest tightness, shortness of breath, wheezing and stridor. Cardiovascular: Negative for chest pain, palpitations and leg swelling. Gastrointestinal: Negative for abdominal pain, constipation, diarrhea and nausea. Genitourinary: Negative for difficulty urinating. Musculoskeletal: Negative for arthralgias. Skin: Negative for rash. Neurological: Negative for weakness. Psychiatric/Behavioral: The patient is not nervous/anxious. OBJECTIVE: Physical Examination: BP 137/63 (BP Location: Left arm, Patient Position: Lying) Pulse 67 Temp 97.7 F (36.5 C) (Oral) Resp 16 Ht 5' 7.5" Wt 65.4 kg (144 lb 2.9 oz) SpO2 95% BMI 22.25 kg/m Physical Exam Vitals reviewed. Constitutional: Appearance: Normal appearance. He is normal weight. HENT: Head: Normocephalic. Right Ear: External ear normal. Left Ear: External ear normal. Nose: Nose normal. Mouth/Throat: Mouth: Mucous membranes are moist. Pharynx: Oropharynx is clear. Eyes: Extraocular Movements: Extraocular movements intact. Conjunctiva/sclera: Conjunctivae normal. Pupils: Pupils are equal, round, and reactive to light. Cardiovascular: Rate and Rhythm: Normal rate. Pulses: Normal pulses. Heart sounds: Normal heart sounds. Pulmonary: Effort: Pulmonary effort is normal. Breath sounds: Normal breath sounds. Abdominal: General: Bowel sounds are normal. Musculoskeletal: General: Normal range of motion. Cervical back: Neck supple. Skin: General: Skin is warm. Neurological: General: No focal deficit present. Mental Status: He is alert. Psychiatric: Mood and Affect: Mood normal. Laboratory and Additional Data Reviewed: Reviewed 05/09/21 10:27 AM: Laboratory, Medications and Transcriptions Patient was treated for urinary sepsis and remained stable Continues to receive physical therapy able to go to restroom according to his history Has a stage II chronic renal failure Blood sugar being monitored and covered with regular insulin Hypertension under control Hyperlipidemia on treatment Post right hip fracture repair had added physical therapy Subjective no complaints wants to know when he will be able to go back to senior care hopefully by Monday Denies any other issues On examination vital signs blood pressure 126 x 49 mmHg heart rate is 68 temperature normal remains in room air Rest of the examination remained stable and unchanged there is a pallor. Lab works hemoglobin 8.9 creatinine 1.66 Occupational Therapy OCCUPATIONAL THERAPY PROGRESS REPORT Pt's current OT POC is due to be updated this date. Will notify OTR/L of need to review POC and discuss continuation of unmet goals as appropriate. Skilled Therapy Needs After Discharge Anticipate Resolution of Current Assessment Limitations Including: Pain, Mechanical Barriers, Social Support Are Skilled Therapy Services Needed After Discharge: Yes Intensity of Skilled Therapy: Up to 5 days per week Anticipated Duration of Skilled Therapy: Duration 10 - 30 days DME Recommendation: To be determined at next level of care Rehab Potential: Good Outcomes Measures Prior Function Daily Activity Raw Score: 24 Prior Function Daily Activity % Impaired: 0% AM-PAC Daily Activity Raw Score: 18 AM-PAC Daily Activity % Impaired: 46.65% Activity Tolerance Activity Tolerance: Tolerates 20 - 30 min activity with multiple rests Therapy Precautions Orthotic Devices: No Weight Bearing Status: [facility] General Rehab Precautions: Fall risk Cognition Overall Cognitive Status: Within Functional Limits Arousal/Alertness: Appropriate responses to stimuli Orientation Level: Oriented X4 Executive functioning: Insight Safety Judgment: Decreased awareness of need for assistance, Decreased awareness of need for safety Problem Solving: Assistance required to identify errors made Attention: Attends to quiet environment Hearing Status: [facility] Social Interaction: [facility] Comments: Followed all commands during session. ADL Grooming: Minimal assist (standing for face washing) Grooming - Skilled Intervention Provided: monitored patient's safety and tolerance Grooming - For: fall prevention Grooming - Resulting In: improved activity tolerance, improved participation in ADL task, improved performance with ADLs Functional Mobility: Contact guard assist (amb to and from bathroom sink ) Functional Mobility - Skilled Intervention Provided: monitoring patient response with activity Functional Mobility - For: fall prevention, attention to task, LE management Functional Mobility - Resulting In: improved activity tolerance, improved safety, increased initiation/participation in mobility task(s) Bed Mobility Sit to Supine: Stand by assist, Head of bed flat Skilled Intervention Provided: monitoring patient response with activity For: fall prevention, safety during functional task(s) Resulting In: improved activity tolerance, improved performance, improved safety Functional Transfers Sit to Stand: Contact guard assist Bed to Chair Transfers: Contact guard assist Toilet Transfers: (declined to practice) Glass Blower Helper: wheeled walker Skilled Intervention Provided: monitoring patient response with activity For: fall prevention Resulting In: improved activity tolerance, increased initiation/participation in mobility task(s), improved performance, improved safety Exercise Seated Exercises: Participated in 5 B UE light resistive theraband exs x10 reps, while seated in chair. Ther exs addressed to promote increased B UE strength and activity toleracne for I ADL performance. Skilled intervention provided: verbal cues, instruction on proper technique/alignment, monitoring patient response with exercise, demonstration For: frequency of exercise(s), proper positioning of extremity Resulting In: improved activity tolerance, improved functional strength / ROM Balance Treatment Standing Balance - Dynamic: Minimal assist, 1+ to 3 minutes, with device, with unilateral LUE support, with unilateral RUE support, without UE support, retropulsive Glass Blower Helper - Standing Dynamic: wheeled walker Loss of Balance- Standing Dynamic: posterior Standing Balance Treatment: reaching within base of support Skilled Intervention Provided: tactile cues For: fall prevention Resulting in: improved activity tolerance, improved performance Home Living Obtained Home Living and PLOF info from: Patient Lives With: Spouse Type of Home: House Home Layout: One level, Laundry in basement Steps to enter home: Ramped entrance Bathroom Shower/Tub: Tub/shower unit Bathroom Toilet: Standard Bathroom Equipment: Grab bars in shower, Shower chair, Hand-held showerhead, Grab bars around toilet Mobility Equipment: Cane, Wheelchair - manual, Wheeled walker Additional Objective Details - Home Living: pt was at rehab in [place] for a hip fracture sustained ~ 1 month ago. pt came to [facility] from [facility] Prior Level of Function Receives Help From: Spouse Level of [place] - Transfers/Ambulation/Mobility: Independent with functional transfers, Independent with household ambulation, Independent with community ambulation Level of [place] - ADLs: Independent Level of [place] - Homemaking: Independent Driving: Patient does not drive For complete objective data, detailed plan of care and patient education refer to: OT Evaluation flowsheet, OT Evaluation and Treatment flowsheet, OT Treatment flowsheet, patient Plan of Care, Plan of Care progress note, and Patient Education. This note stands as the current Discharge Summary upon patient discharge from the hospital or completion of Occupational Therapy Plan of Care. Physical Therapy PHYSICAL THERAPY TREATMENT NOTE Skilled Therapy Needs After Discharge Anticipate Resolution of Current Assessment Limitations Including: Mechanical Barriers, Social Support Are Skilled Therapy Services Needed After Discharge: Yes Intensity of Skilled Therapy: Up to 5 days per week Anticipated Duration of Skilled Therapy: Duration 10 - 30 days Rehab Potential: Good Outcomes Measures Prior Function - Basic Mobility Raw Score: 24 Points Prior Function - Basic Mobility % Impaired: 0% AM-PAC Basic Mobility Raw Score: 17 Points AM-PAC Basic Mobility % Impaired: 43.83% Activity Tolerance Therapy Precautions General Rehab Precautions: Fall risk (1 person pivot only) Balance Sitting Balance - Static: Stand by assist Loss of Balance - Sitting Static: left Sitting Balance Treatment: weight shifting right Skilled Intervention Provided: verbal cues For: balance recovery Resulting in: improved balance reactions Standing Balance - Static: Contact guard assist Glass Blower Helper - Standing Static: wheeled walker Bed Mobility Rolling: Minimal assist, Modified independent Supine to Sit: Minimal assist Skilled Intervention Provided: verbal cues For: UE management, LE management Transfers Sit to Stand: Stand by assist Bed to Chair: Contact guard assist Stand Pivot Transfers: Contact guard assist Glass Blower Helper: wheeled walker Skilled Intervention Provided: verbal cues For: controlled descent Resulting in: improved safety Gait/Locomotion Gait Assistance: Contact guard assist Assistive Device: wheeled walker Distance: (40' x 2) Rest Breaks: Yes Rest Break Position: seated Rest Break Duration: 2-3 min Pattern: step to, step through, R decreased stance time, L decreased stance time, L decreased step length, R decreased step length Skilled Intervention Provided: verbal cues For: breathing techniques, efficient movement Resulting in: improved performance Exercise Additional Treatment Details Home Living Obtained Home Living and PLOF info from: Patient Lives With: Spouse Type of Home: House Home Layout: One level, Laundry in basement Steps to enter home: Ramped entrance Bathroom Shower/Tub: Tub/shower unit Bathroom Toilet: Standard Bathroom Equipment: Grab bars in shower, Shower chair, Hand-held showerhead, Grab bars around toilet Mobility Equipment: Cane, Wheelchair - manual, Wheeled walker Additional Objective Details - Home Living: pt was at rehab in [place] for a hip fracture sustained ~ 1 month ago. pt came to [facility] from [facility] Prior Level of Function Receives Help From: Spouse Level of [place] - Transfers/Ambulation/Mobility: Independent with functional transfers, Independent with household ambulation, Independent with community ambulation Level of [place] - ADLs: Independent Level of [place] - Homemaking: Independent Driving: Patient does not drive For complete objective data, detailed plan of care and patient education refer to: PT Evaluation flowsheet, PT Evaluation and Treatment flowsheet, PT Treatment flowsheet, patient Plan of Care, Plan of Care progress note, and Patient Education. This note stands as the current Discharge Summary upon patient discharge from the hospital or completion of Physical Therapy Plan of Care. Spiritual Care Progress Note Completed by: Akhil Ventura Person(s) Present During this Visit: Patient, Spouse Time Spent in Direct Patient Care: 30 Narrative: Upon rounding, Stevo's spouse motions decorating equipment setter to come into the room. [employer] Counter Person entered and listened while the spouse shared her concerns with Stevo's eventual departure and discharge from the hospital. The transition piece from the hospital to the senior care gives both spouse and Stevo anxiety. Spouse requested prayer for healing and for a smooth transition once leaving the hospital. [employer] Counter Person provided prayer and emotional/spiritual support while spouse gave her narrative which included her aspirations of travel with Stevo upon his departure. Both expressed their gratitude for the medical team and their hospitality. [employer] Counter Person provided an empathetic ear for Setvo as he also expressed his past medical history in the ED. In that story, Stevo emphasized the strong support system derived from his children. If still present until tomorrow, he looks forward to seeing his son, who has come in the past. The pastoral care team will continue to provide emotional/spiritual support as needed while Stevo is at the hospital. Patient's Response to Pastoral Care: Appeared to be well-engaged, Expressed Gratitude for Visit, Visit said to have been helpful Planning for Future Visits: PRN, Pt aware to contact [employer] Counter Person as needed 05/07/21 1220 Visit Background Visit With Patient;Spouse Visit By Student [employer] Counter Person Visit Progression Follow-Up Visit Requested By [employer] Counter Person Initiated Visit Source [employer] Counter Person Initiated Visit Type Inpatient;Rounding Visit Circumstances and Events Routine Visit;Family Support Visit Length (minutes) 30 Patient's Response to Pastoral Care Appeared to be well-engaged;Expressed Gratitude for Visit;Visit said to have been helpful Visit Planning PRN;Pt aware to contact [employer] Counter Person as needed Spiritual Assessment Not assessed during visit Restorationism Assessment Assessed during this visit Family assessment provided? Assessed during this visit Patient Restorationism Needs Assessment Restorationism Connection Not Discussed Restorationism Home [employer] [facility] Connection Yazdanism Family Assessment Relationship to Patient Spouse Affect at Time of Visit Anxious;Open to Discussion;Tearful;Talkative;Pleas ant;Worried Emotions Expressed During Visit Coping;Hopeful;Overwhelmed;Relies on Pia;Tired;Worried Expressed Concerns Regarding Patient Illness Additional Responsibilities;Concern about Patient/Outcome;[id number];[place] th of Stay;Life Review;Transition in Care Sources of Hope and Strength Comfort;Pia;Praying for Healing;Supportive of One Another Family / Friend's Support and Participation Active (Their children play a considerable part in their support) Grief Assessment Appropriately Coping Spiritual Assessment Seeking Healing/Wholeness Interventions - Family / Friend [employer] Counter Person Support;Affirmation;Empathic Listening;Facilitated Story-Telling;Provided Comfort;Provided Prayer;Provided Spiritual Support Family / Friend Outcomes Expressed Gratitude;Open to [employer] Counter Person Visit;Processed Tearfully;Processed Verbally;Reduced Anxiety;Verbalized Feelings Akhil Ventura [employer] Counter Person Product Sales Representative [facility] 22/05 On-Call DISCHARGE PLAN PROGRESS NOTE Date: 05/07/2021 Time: 10:41 AM Patient is ready for discharge once precert is received. Precert remains pending at this time. Most recent therapy note from 05/06 was sent to [facility]. Patient Name: Stevo Elizalde Date of : 1950 Sex: Male [facility] Disposition D/C Disposition: [facility] Facility Agency/Destination: [facility] Estimated Length of Stay (ELOS): 16 ELOS Discussed with Patient / Family?: Yes Anticipated Discharge Plan Anticipated HME: None Anticipated Home Care Needs: None Anticipated Facility Type[facility] facility Internal medicine Inpatient Follow-up 05/07/2021 Bryce Alvarez MD [facility] Patient: Stevo Elizalde Date of : 1950 (71 y.o.) PCP: Phyllis Mae MD ASSESSMENT/PLAN: Stevo Elizalde 71 y.o. male Sepsis with acute renal failure without septic shock (HCC) Assessment & Plan Present on admission now resolved. Off of antibiotics. * Acute renal failure superimposed on stage 3a chronic kidney disease (HCC) Assessment & Plan Patient's ultrasound showed only modest post residual urine however with increasing creatinine with possible patient may need a Medina placed back and needs to be followed up with urology as outpatient. Will check postvoid residual again today. Type 2 diabetes mellitus with stage 3b chronic kidney disease, with long-term current use of insulin ([facility]) Assessment & Plan Blood sugar is stable. Essential hypertension Assessment & Plan Blood pressure is better. Anemia due to stage 3a chronic kidney disease ([facility]) Assessment & Plan Hemoglobin stable. Urinary tract infection associated with indwelling urethral catheter ([facility]) Assessment & Plan Resolved. Urinary retention Assessment & Plan Confirmed by post void residual. As Medina is out now we will check post residual volume by ultrasound. Chronic obstructive pulmonary disease ([facility]) Assessment & Plan Stable Summary of assessment and Plan patient overall stable after checking post void urine will discharge the patient to senior care. SUBJECTIVE: History Since Last Visit: Patient has no new complaints Review of Systems: Review of Systems Constitutional: Negative for activity change, appetite change, chills, diaphoresis, fatigue, fever and unexpected weight change. HENT: Negative for congestion. Eyes: Negative for visual disturbance. Respiratory: Negative for apnea, cough, choking, chest tightness, shortness of breath, wheezing and stridor. Cardiovascular: Negative for chest pain, palpitations and leg swelling. Gastrointestinal: Negative for abdominal pain, constipation, diarrhea and nausea. Genitourinary: Negative for difficulty urinating. Musculoskeletal: Negative for arthralgias. Skin: Negative for rash. Neurological: Negative for weakness. Psychiatric/Behavioral: The patient is not nervous/anxious. OBJECTIVE: Physical Examination: BP (!) 154/71 Pulse 64 Temp 97.2 F (36.2 C) (Oral) Resp 16 Ht 5' 7.5" Wt 65.5 kg (144 lb 6.4 oz) SpO2 97% BMI 22.28 kg/m Physical Exam Vitals reviewed. Constitutional: Appearance: Normal appearance. He is normal weight. HENT: Head: Normocephalic. Right Ear: External ear normal. Left Ear: External ear normal. Nose: Nose normal. Mouth/Throat: Mouth: Mucous membranes are moist. Pharynx: Oropharynx is clear. Eyes: Extraocular Movements: Extraocular movements intact. Conjunctiva/sclera: Conjunctivae normal. Pupils: Pupils are equal, round, and reactive to light. Cardiovascular: Rate and Rhythm: Normal rate. Pulses: Normal pulses. Heart sounds: Normal heart sounds. Pulmonary: Effort: Pulmonary effort is normal. Breath sounds: Normal breath sounds. Abdominal: General: Bowel sounds are normal. Musculoskeletal: General: Normal range of motion. Cervical back: Neck supple. Skin: General: Skin is warm. Neurological: General: No focal deficit present. Mental Status: He is alert. Psychiatric: Mood and Affect: Mood normal. Laboratory and Additional Data Reviewed: Reviewed 05/07/21 9:15 AM: Laboratory, Medications and Transcriptions Physical Therapy PHYSICAL THERAPY TREATMENT NOTE Skilled Therapy Needs After Discharge Anticipate Resolution of Current Assessment Limitations Including: Mechanical Barriers, Social Support Are Skilled Therapy Services Needed After Discharge: Yes Intensity of Skilled Therapy: Up to 5 days per week Anticipated Duration of Skilled Therapy: Duration 10 - 30 days Rehab Potential: Good Outcomes Measures Prior Function - Basic Mobility Raw Score: 24 Points Prior Function - Basic Mobility % Impaired: 0% AM-PAC Basic Mobility Raw Score: 17 Points AM-PAC Basic Mobility % Impaired: 43.83% Activity Tolerance Activity Tolerance: Tolerates 20 - 30 min activity with multiple rests Therapy Precautions General Rehab Precautions: Fall risk (1 person pivot only) Balance Bed Mobility Rolling: Modified independent Supine to Sit: Modified independent Skilled Intervention Provided: verbal cues, tactile cues, monitoring patient response with activity Transfers Sit to Stand: Stand by assist, Contact guard assist Stand Pivot Transfers: Contact guard assist Glass Blower Helper: wheeled walker Skilled Intervention Provided: verbal cues, monitoring patient response with activity For: UE positioning, LE management, controlled descent Resulting in: improved performance, improved safety Gait/Locomotion Gait Assistance: Contact guard assist Assistive Device: wheeled walker Distance: 50 Feet Rest Breaks: Yes Rest Break Position: seated Rest Break Duration: 2-3 min Additional Gait Trial 2: Yes Gait Assistance Trial 2: Contact guard assist Assistive Device Trial 2: wheeled walker Distance Trial 2: 50 Rest Breaks Trial 2: Yes Rest Break Position Trial 2: seated Rest Break Duration Trial 2: 2-3 min Pattern: antalgic, step to, decreased nilda (steps per minute) Skilled Intervention Provided: verbal cues, monitoring patient response with activity For: breathing techniques Resulting in: improved performance, improved safety Exercise Standing Exercises: sit to stands x5 from armed chair with VCs for UE positioning and controlled descent Breathing Training: Diaphragmatic breathing Skilled Intervention Provided: verbal cues, demonstration, instruction on proper technique/alignment, monitoring patient response with exercise, patient education For: breath control/breathing pattern with exercise, fall prevention Resulting in: improved performance, improved safety Additional Treatment Details Pt c/o SOB with ambulation. SpO2 >93% on room air after walking 50ft x2 with 2 seated rests. Pt education provided for diaphragmatic breathing to decrease feeling of SOB. Encouraged pt to stay sitting up in recliner for at least 30 minutes at end of session to improve breathing with pt agreeable to try. Home Living Obtained Home Living and PLOF info from: Patient Lives With: Spouse Type of Home: House Home Layout: One level, Laundry in basement Steps to enter home: Ramped entrance Bathroom Shower/Tub: Tub/shower unit Bathroom Toilet: Standard Bathroom Equipment: Grab bars in shower, Shower chair, Hand-held showerhead, Grab bars around toilet Mobility Equipment: Cane, Wheelchair - manual, Wheeled walker Additional Objective Details - Home Living: pt was at rehab in [place] for a hip fracture sustained ~ 1 month ago. pt came to [facility] from [facility] Prior Level of Function Receives Help From: Spouse Level of [place] - Transfers/Ambulation/Mobility: Independent with functional transfers, Independent with household ambulation, Independent with community ambulation Level of [place] - ADLs: Independent Level of [place] - Homemaking: Independent Driving: Patient does not drive For complete objective data, detailed plan of care and patient education refer to: PT Evaluation flowsheet, PT Evaluation and Treatment flowsheet, PT Treatment flowsheet, patient Plan of Care, Plan of Care progress note, and Patient Education. This note stands as the current Discharge Summary upon patient discharge from the hospital or completion of Physical Therapy Plan of Care. Patient admitted with a urinary sepsis urine culture growing staph and enterococci received IV antibiotic and completed Patient is waiting to be discharged to senior care and verifying certification Patient is here in bed all the time complains of leg pain patient remains inactive Is supposed recent right hip fracture repaired and physically not motivated to be active Subjective complains of leg pain on pain management No urinary symptoms On examination the HEENT no abnormal finding, pallor noted Neck examination normal Cardiopulmonary examination unremarkable abdominal examination negative There is arthralgia Vital signs stable blood pressure 130 x 66 mmHg at rate 69 sinus rhythm. Waiting discharge DISCHARGE PLAN PROGRESS NOTE Date: 05/05/2021 Time: 1:30 PM Updated therapy notes sent to [facility] for precert. Contacted [facility] and notified Brii that notes were sent. Patient Name: Stevo Elizalde Date of : 1950 Sex: Male [facility] Disposition D/C Disposition: Prison Facility Agency/Destination: [facility] Estimated Length of Stay (ELOS): 16 ELOS Discussed with Patient / Family?: Yes Anticipated Discharge Plan Anticipated HME: None Anticipated Home Care Needs: None Anticipated Facility Type: [facility] facility Occupational Therapy OCCUPATIONAL THERAPY TREATMENT NOTE Skilled Therapy Needs After Discharge Anticipate Resolution of Current Assessment Limitations Including: Pain, Mechanical Barriers, Social Support Are Skilled Therapy Services Needed After Discharge: Yes Intensity of Skilled Therapy: Up to 5 days per week Anticipated Duration of Skilled Therapy: Duration 10 - 30 days DME Recommendation: To be determined at next level of care Rehab Potential: Good Outcomes Measures Prior Function Daily Activity Raw Score: 24 Prior Function Daily Activity % Impaired: 0% AM-PAC Daily Activity Raw Score: 18 AM-PAC Daily Activity % Impaired: 46.65% Activity Tolerance Activity Tolerance: Tolerates 20 - 30 min activity with multiple rests Therapy Precautions Orthotic Devices: No Weight Bearing Status: WFL General Rehab Precautions: Fall risk Cognition Overall Cognitive Status: Within Functional Limits Arousal/Alertness: Appropriate responses to stimuli Orientation Level: Oriented X4 Executive functioning: Insight Safety Judgment: Decreased awareness of need for assistance, Decreased awareness of need for safety Problem Solving: Assistance required to identify errors made Attention: Attends to quiet environment Hearing Status: WFL Social Interaction: WFL Comments: Followed all commands during session. ADL Grooming: Contact guard assist (oral care in standing @ sink for 2 min) Grooming - Skilled Intervention Provided: monitored patient's safety and tolerance Grooming - For: fall prevention Grooming - Resulting In: improved activity tolerance, improved overall self care, improved participation in ADL task, improved performance with ADLs LE Dressing: Contact guard assist, Use of adaptive equipment, Increased time to complete LE Dressing - Skilled Intervention Provided: verbal cues, demonstration LE Dressing - For: LE management, LE positioning, adaptive equipment use, fall prevention, efficient movement LE Dressing - Resulting In: improved participation in ADL task, improved performance with ADLs, improved overall self care Functional Mobility: Contact guard assist (to and from bathroom sink with FWW) Functional Mobility - Skilled Intervention Provided: monitoring patient response with activity, verbal cues Functional Mobility - For: fall prevention, increased participation in mobility task Functional Mobility - Resulting In: improved activity tolerance, improved functional independence, increased initiation/participation in mobility task(s), improved performance, improved safety Bed Mobility Supine to Sit: Contact guard assist, Head of bed elevated Glass Blower Helper: bedrails Skilled Intervention Provided: monitoring patient response with activity For: fall prevention, efficient movement, safe use of bedrails and/or equipment Resulting In: improved activity tolerance, improved performance, improved functional independence, improved safety, increased initiation in mobility task(s) Functional Transfers Sit to Stand: Minimal assist (from EOB) Glass Blower Helper: wheeled walker Skilled Intervention Provided: monitoring patient response with activity For: fall prevention Resulting In: improved activity tolerance, improved functional independence, improved performance Home Living Obtained Home Living and PLOF info from: Patient Lives With: Spouse Type of Home: House Home Layout: One level, Laundry in basement Steps to enter home: Ramped entrance Bathroom Shower/Tub: Tub/shower unit Bathroom Toilet: Standard Bathroom Equipment: Grab bars in shower, Shower chair, Hand-held showerhead, Grab bars around toilet Mobility Equipment: Cane, Wheelchair - manual, Wheeled walker Additional Objective Details - Home Living: pt was at rehab in [place] for a hip fracture sustained ~ 1 month ago. pt came to [facility] from [facility] Prior Level of Function Receives Help From: Spouse Level of [place] - Transfers/Ambulation/Mobility: Independent with functional transfers, Independent with household ambulation, Independent with community ambulation Level of [place] - ADLs: Independent Level of [place] - Homemaking: Independent Driving: Patient does not drive For complete objective data, detailed plan of care and patient education refer to: OT Evaluation flowsheet, OT Evaluation and Treatment flowsheet, OT Treatment flowsheet, patient Plan of Care, Plan of Care progress note, and Patient Education. This note stands as the current Discharge Summary upon patient discharge from the hospital or completion of Occupational Therapy Plan of Care. Spiritual Care Progress Note Completed by: Akhil Ventura Person(s) Present During this Visit: Patient Time Spent in Direct Patient Care: 30 Narrative: While rounding, visited with Steov. He shared the nature of his visit in that he fell on his hip. He further shared his lengthy stay in multiple hospitals as of late (2 months). Still, he applauded and expressed gratitude toward the medical team for their kind hospitality. 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 Stevo explained that he was thankful for the good Lord keeping him during his life. He emphasized that if it had not been for the Lord his medical condition would be worse. Stevo's support system includes: his spouse, and two sons who according to Stevo are very close and still come around. The immediate family has come by to see him multiple times since his stay. Stevo also shared the hobbies he wishes he could return to post his medical stay (fishing). providing a listening ear while Stevo shared his anxiety of the unknown of what was going on with his kidney's. [employer] Counter Person continued to provide emotional/spiritual support while Stevo requested prayer. [employer] Counter Person prayed and let Stevo know that the pastoral care team was ready and available to help with emotional/spiritual support during his visit. Pastoral Care team will remain available to support patient and family PRN. No family was present during the visit. Patient's Response to Pastoral Care: Planning for Future Visits: PRN, Pt aware to contact [employer] Counter Person as needed 05/05/21 1125 Visit Background Visit With Patient Visit By Student [employer] Counter Person Visit Progression Introduction Visit Requested By [employer] Counter Person Initiated Visit Source [employer] Counter Person Initiated Visit Type Inpatient;Rounding Visit Circumstances and Events Routine Visit Visit Length (minutes) 30 Visit Planning PRN;Pt aware to contact [employer] Counter Person as needed Spiritual Assessment Assessed during this visit Restorationism Assessment Unable to Assess during this visit Family assessment provided? Unable to asess during this visit Patient Spiritual Needs Assessment Sources of Connection Son;Spouse (Son(s) - two of them ) Belief Practices Prayer Image of the Quality Assurance Supervisor Body;Love (The Good Lord) Role of the Divine in Pt's Illness Other (Did not fully discuss ) Spiritual Wellness Activies and Resources Prayer Grief Assessment Anticipatory Grief;Life Review Expressed / Stated Feelings Anxiety;Fear;Expressed Hope Attitude Toward Illness Hope;Tentative / Waiting Understanding of (Did not discuss ) Coping Mechanisms Expressing Feelings (Watching TV) Spiritual Diagnosis Awareness of the Sacred Facilitated Interventions Active Listening;Affirmation;Life Review;Meaning Making;Normalized Feelings;Prayer;Use of Storytelling;Validated Emotions/Feelings Spiritual/Emotional Outcomes Acceptance;Encouragement;Spiritual Comfort;Story shared or processed Resources Provided (None Provided ) Bereavement Resources (None Provided ) Spiritual Plan of Care Receive Prayer;Receive Spiritual Support;Receive Comfort;Regain Sense of Normalcy Akhil Ventura [employer] Counter Person Product Sales Representative [facility] 22/05 On-Call Physical Therapy PHYSICAL THERAPY TREATMENT NOTE Skilled Therapy Needs After Discharge Anticipate Resolution of Current Assessment Limitations Including: Mechanical Barriers, Social Support Are Skilled Therapy Services Needed After Discharge: Yes Intensity of Skilled Therapy: Up to 5 days per week Anticipated Duration of Skilled Therapy: Duration 10 - 30 days Rehab Potential: Good Outcomes Measures Prior Function - Basic Mobility Raw Score: 24 Points Prior Function - Basic Mobility % Impaired: 0% AM-PAC Basic Mobility Raw Score: 16 Points AM-PAC Basic Mobility % Impaired: 47.12% Activity Tolerance Activity Tolerance: Tolerates 10 - 20 min activity with multiple rests Therapy Precautions General Rehab Precautions: Fall risk (1 person pivot only.) Balance Standing Balance - Static: Contact guard assist Glass Blower Helper - Standing Static: wheeled walker Standing Balance - Dynamic: Contact guard assist Glass Blower Helper - Standing Dynamic: wheeled walker Standing Balance Treatment: weight shifting anterior, weight shifting posterior, weight shifting left, weight shifting right, reaching across midline, reaching outside base of support Skilled Intervention Provided: verbal cues, tactile cues For: LE management, LE positioning, UE management, UE positioning, balance recovery, efficient movement, fall prevention Resulting in: improved functional independence, improved motor control, improved performance Bed Mobility Rolling: Modified independent Supine to Sit: Modified independent Sit to Supine: Modified independent Transfers Sit to Stand: Contact guard assist Bed to Chair: Contact guard assist Stand Pivot Transfers: Contact guard assist Glass Blower Helper: wheeled walker Skilled Intervention Provided: verbal cues, tactile cues For: LE management, LE positioning, UE management, UE positioning, efficient movement, fall prevention Resulting in: improved functional independence, improved performance, improved safety Gait/Locomotion Gait Assistance: Contact guard assist Assistive Device: wheeled walker Distance: 120 Feet Pattern: step to, step through Skilled Intervention Provided: verbal cues, tactile cues For: efficient movement, fall prevention, gait sequence, gait technique Resulting in: improved performance, improved safety, improved efficiency, improved functional independence Home Living Obtained Home Living and PLOF info from: Patient Lives With: Spouse Type of Home: House Home Layout: One level, Laundry in basement Steps to enter home: Ramped entrance Bathroom Shower/Tub: Tub/shower unit Bathroom Toilet: Standard Bathroom Equipment: Grab bars in shower, Shower chair, Hand-held showerhead, Grab bars around toilet Mobility Equipment: Cane, Wheelchair - manual, Wheeled walker Additional Objective Details - Home Living: pt was at rehab in [place] for a hip fracture sustained ~ 1 month ago. pt came to [facility] from [facility] Prior Level of Function Receives Help From: Spouse Level of [place] - Transfers/Ambulation/Mobility: Independent with functional transfers, Independent with household ambulation, Independent with community ambulation Level of [place] - ADLs: Independent Level of [place] - Homemaking: Independent Driving: Patient does not drive For complete objective data, detailed plan of care and patient education refer to: PT Evaluation flowsheet, PT Evaluation and Treatment flowsheet, PT Treatment flowsheet, patient Plan of Care, Plan of Care progress note, and Patient Education. This note stands as the current Discharge Summary upon patient discharge from the hospital or completion of Physical Therapy Plan of Care. Internal medicine Inpatient Follow-up 05/05/2021 Bryce Alvarez MD [facility] Patient: Stevo Elizalde Date of : 1950 (71 y.o.) PCP: Phyllis Mae MD ASSESSMENT/PLAN: Stevo Elizalde 71 y.o. male Sepsis with acute renal failure without septic shock (HCC) Assessment & Plan Present on admission now resolved. Off of antibiotics. * Acute renal failure superimposed on stage 3a chronic kidney disease (HCC) Assessment & Plan Medina has been removed for last 24 hours. Renal function back to baseline. Plan do ultrasound to check for any post void residual and obstruction. Type 2 diabetes mellitus with stage 3b chronic kidney disease, with long-term current use of insulin ([facility]) Assessment & Plan Blood sugar is stable. Essential hypertension Assessment & Plan Blood pressure is better. Anemia due to stage 3a chronic kidney disease (HCC) Assessment & Plan Hemoglobin stable. Urinary tract infection associated with indwelling urethral catheter (HCC) Assessment & Plan Resolved. Urinary retention Assessment & Plan Confirmed by post void residual. As Medina is out now we will check post residual volume by ultrasound. Chronic obstructive pulmonary disease (HCC) Assessment & Plan Stable Summary of assessment and Plan patient's Medina is out waiting for insurance pre-CERT for discharge. SUBJECTIVE: History Since Last Visit: Patient has no new complaints Review of Systems: Review of Systems Constitutional: Negative for activity change, appetite change, chills, diaphoresis, fatigue, fever and unexpected weight change. HENT: Negative for congestion. Eyes: Negative for visual disturbance. Respiratory: Negative for apnea, cough, choking, chest tightness, shortness of breath, wheezing and stridor. Cardiovascular: Negative for chest pain, palpitations and leg swelling. Gastrointestinal: Negative for abdominal pain, constipation, diarrhea and nausea. Genitourinary: Negative for difficulty urinating. Musculoskeletal: Negative for arthralgias. Skin: Negative for rash. Neurological: Negative for weakness. Psychiatric/Behavioral: The patient is not nervous/anxious. OBJECTIVE: Physical Examination: BP 134/80 (BP Location: Left arm, Patient Position: Lying) Pulse 68 Temp 97.7 F (36.5 C) (Oral) Resp (!) 20 Ht 5' 7.5" Wt 66 kg (145 lb 8.1 oz) SpO2 93% BMI 22.45 kg/m Physical Exam Vitals reviewed. Constitutional: Appearance: Normal appearance. He is normal weight. HENT: Head: Normocephalic. Right Ear: External ear normal. Left Ear: External ear normal. Nose: Nose normal. Mouth/Throat: Mouth: Mucous membranes are moist. Pharynx: Oropharynx is clear. Eyes: Extraocular Movements: Extraocular movements intact. Conjunctiva/sclera: Conjunctivae normal. Pupils: Pupils are equal, round, and reactive to light. Cardiovascular: Rate and Rhythm: Normal rate. Pulses: Normal pulses. Heart sounds: Normal heart sounds. Pulmonary: Effort: Pulmonary effort is normal. Breath sounds: Normal breath sounds. Abdominal: General: Bowel sounds are normal. Musculoskeletal: General: Normal range of motion. Cervical back: Neck supple. Skin: General: Skin is warm. Neurological: General: No focal deficit present. Mental Status: He is alert. Psychiatric: Mood and Affect: Mood normal. Laboratory and Additional Data Reviewed: Reviewed 05/05/21 9:28 AM: Laboratory, Medications and Transcriptions DISCHARGE PLAN PROGRESS NOTE Date: 05/04/2021 Time: 3:10 PM Updated therapy notes sent to [employer]. A message was left for Brii with [facility] at [facility]. Patient Name: Stevo Elizalde Date of : 1950 Sex: Male [facility] Disposition D/C Disposition: Prison Facility Agency/Destination: [facility] Estimated Length of Stay (ELOS): 16 ELOS Discussed with Patient / Family?: Yes Anticipated Discharge Plan Anticipated HME: None Anticipated Home Care Needs: None Anticipated Facility Type: [facility] facility Physical Therapy PHYSICAL THERAPY TREATMENT NOTE Skilled Therapy Needs After Discharge Anticipate Resolution of Current Assessment Limitations Including: Mechanical Barriers, Social Support Are Skilled Therapy Services Needed After Discharge: Yes Intensity of Skilled Therapy: Up to 5 days per week Anticipated Duration of Skilled Therapy: Duration 10 - 30 days Rehab Potential: Good Outcomes Measures Prior Function - Basic Mobility Raw Score: 24 Points Prior Function - Basic Mobility % Impaired: 0% AM-PAC Basic Mobility Raw Score: 16 Points AM-PAC Basic Mobility % Impaired: 47.12% Activity Tolerance Activity Tolerance: Tolerates 10 - 20 min activity with multiple rests Therapy Precautions General Rehab Precautions: Fall risk (1 person pivot only.) Balance Standing Balance - Dynamic: Contact guard assist Glass Blower Helper - Standing Dynamic: wheeled walker Standing Balance Treatment: weight shifting anterior, weight shifting posterior, weight shifting left, weight shifting right, reaching across midline, reaching outside base of support Skilled Intervention Provided: verbal cues, tactile cues For: LE management, LE positioning, UE management, UE positioning, fall prevention, efficient movement Resulting in: improved functional independence, improved motor control, improved performance Bed Mobility Rolling: Modified independent Supine to Sit: Modified independent Sit to Supine: Modified independent Transfers Sit to Stand: Contact guard assist Bed to Chair: Contact guard assist Glass Blower Helper: wheeled walker Skilled Intervention Provided: verbal cues, tactile cues For: fall prevention, efficient movement Resulting in: improved performance, improved functional independence, improved safety Gait/Locomotion Gait Assistance: Contact guard assist Assistive Device: wheeled walker Distance: 60 Feet Pattern: step to, step through Skilled Intervention Provided: verbal cues, tactile cues For: efficient movement, energy conservation techniques, fall prevention, gait sequence, gait technique Resulting in: improved efficiency, improved functional independence, improved performance, improved safety Exercise Seated Exercises: Pt engaged in seated BLE ther ex x20 reps ea with mod cues for technique and form all to improve strength and activity tolerance for improved functional outcomes all to improve transfers and gait. Skilled Intervention Provided: verbal cues, tactile cues For: achieving full ROM as tolerated, frequency of exercise(s), number of repetitions Resulting in: improved functional strength / ROM Home Living Obtained Home Living and PLOF info from: Patient Lives With: Spouse Type of Home: House Home Layout: One level, Laundry in basement Steps to enter home: Ramped entrance Bathroom Shower/Tub: Tub/shower unit Bathroom Toilet: Standard Bathroom Equipment: Grab bars in shower, Shower chair, Hand-held showerhead, Grab bars around toilet Mobility Equipment: Cane, Wheelchair - manual, Wheeled walker Additional Objective Details - Home Living: pt was at rehab in [place] for a hip fracture sustained ~ 1 month ago. pt came to [facility] from [facility] Prior Level of Function Receives Help From: Spouse Level of [place] - Transfers/Ambulation/Mobility: Independent with functional transfers, Independent with household ambulation, Independent with community ambulation Level of [place] - ADLs: Independent Level of [place] - Homemaking: Independent Driving: Patient does not drive For complete objective data, detailed plan of care and patient education refer to: PT Evaluation flowsheet, PT Evaluation and Treatment flowsheet, PT Treatment flowsheet, patient Plan of Care, Plan of Care progress note, and Patient Education. This note stands as the current Discharge Summary upon patient discharge from the hospital or completion of Physical Therapy Plan of Care. COMPLEX DISCHARGE Date: 05/04/2021 Time: 10:04 AM Patient Name: Stevo Elizalde Date of : 1950 Sex: Male Patient Information Primary Caregiver: Other (Comment) ([facility]) Per Dr Alvarez, precert can be started to return to [facility]. Source of Information: Patient, Significant Other Living Arrangements: Facility Support Systems: Spouse/significant other Assistance Needed: Moderate Type of Residence: shelter Care Facility Name: [facility] Prior to Admission Home Care Services: Yes Type of Current Home Care Services: Home health care Patient expects to be discharged to:: [facility] Does the patient need discharge transport arranged?: Yes [facility] Disposition D/C Disposition: Prison Facility Agency/Destination: [facility] Estimated Length of Stay (ELOS): 16 ELOS Discussed with Patient / Family?: Yes Nutrition Care Initial Assessment Reason for visit: Dietitian Screen Nutrition Diagnosis: Inadequate energy intake related to inability to consume sufficient energy as evidenced by variable po intakes recorded. Nutrition Intervention: continue Meal and Snacks Nutrition Prescription: Diet: diabetic, renal, 60 gm/meal Nutrition Goals: PO intake > 75% most meals Start Date:05/04/2021 Expected End Date:05/10/2021 Nutrition Education: No needs at this time Assessment: Pertinent clinical information: patient admit from ECF, ARF, urinary seosis Past Medical History: Diagnosis Date Abnormal stress test 04/21/2016 Dobutamine stress echo October 2018 negative for ischemia at a very low submaximal heart rate reviewed. Normal LV function No history of SD. Stage III renal insufficiency Remote history of CVA Follows with vascular. hospitalized in January of 2017 at [facility] in [place]. He had nausea and some abdominal pain, warm feeling from his head down through his body, perhaps some chest discomfo Arthritis Carotid artery occlusion CKD (chronic kidney disease) Stage III Closed fracture of left orbital floor ([facility]) 06/10/2020 Closed fracture of multiple ribs of left side 06/10/2020 COPD (chronic obstructive pulmonary disease) ([facility]) Diabetes mellitus ([facility]) TYPE 2 Essential tremor Fall down stairs 04/14/2020 History of pneumonia Hyperlipidemia Hypertension Left carotid artery stenosis 03/30/2016 Leg cramps Leg heaviness MGUS (monoclonal gammopathy of unknown significance) Peptic ulcer disease PVD (peripheral vascular disease) ([facility]) Rhabdomyolysis 2009 Statin intolerance 04/01/2019 ??? Rhabdomyolysis in past. Stroke ([facility]) 2009 R side Height: 5' 7.5" Current weight: 66.6 kg (146 lb 13.2 oz) BMI Body mass index is 22.66 kg/m . Weight hx: Wt Readings from Last 5 Encounters: 05/03/21 66.6 kg (146 lb 13.2 oz) 04/07/21 57.2 kg (126 lb 1.7 oz) 03/24/21 60.3 kg (133 lb) 03/08/21 60.3 kg (133 lb) 11/23/20 64 kg (141 lb) Current diet order: Diabetic, renal, ALEXSANDRA 60 gm/meal Recent intake: varies. Current intake Likely does not meet estimated needs. Patient/family comments: able to feed self Difficulty Chewing/Swallowing: No Skin Integrity: Intact GI Function: LBM 05/03/21 Physical Appearance: no signs or symptoms of malnutrition Labs: Recent Labs 05/03/21 0523 05/04/21 0519 NA 141 141 K 4.7 4.5 BICARB 21 25 CL 110* 112* GLUCOSE 76 70 BUN 19 19 CREATININE 1.56* 1.56* 1.56* MG 1.8 -- Scheduled Meds: atorvastatin 10 mg Oral Nightly budesonide-formoteroL 2 puff Inhalation BID calcium-vitamin D 1 tablet Oral BID with meals clopidogreL 75 mg Oral Daily heparin (porcine) 5,000 Units Subcutaneous Q8H GM insulin glargine 16 Units Subcutaneous Nightly lispro insulin 0-15 Units Subcutaneous at bedtime insulin lispro 0-30 Units Subcutaneous TID AC labetalol 100 mg Oral Q12H GM NIFEdipine 30 mg Oral Daily pantoprazole 40 mg Oral Daily PARoxetine 20 mg Oral Daily sodium bicarbonate 1,300 mg Oral BID sodium chloride (PF) 5 mL Intravenous Q8H GM tiotropium bromide 2 puff Inhalation Daily Continuous Infusions: sodium chloride 0.9 % Stopped (05/03/21 0413) Estimated Energy Needs Total Energy Estimated Needs: 1900 kcal Method for Estimating Needs: @ 28 kcal/kg Total Protein Estimated Needs: 65 gm Method for Estimating Needs: @ 1 gm/kg Will continue to follow as needed., while in-house. Patient admitted with urinary sepsis, urine culture grows staph and enterococci received IV vancomycin Patient is a post recent hip fracture repair on the right patient is physically not so active Has remained stable feels he can well ambulate with the walker. Chronic anemia stable at this time, hemoglobin is at 8.9 Subjective no complaints patient has remained inactive Talked about discharge plans and discontinuing Medina Patient feels he can walk or ambulate with assistance or walker On examination the HEENT Except for pallor no abnormal finding Chest is symmetric and clear cardiac examination normal first and second heart sound Abdomen examination negative stable rest of the examination DISCHARGE PLAN PROGRESS NOTE Date: 05/03/2021 Time: 1:03 PM Plan remains in place for patient to return to [facility] at discharge. Patient will require new precert. Patient Name: Stevo Elizalde Date of : 1950 Sex: Male [facility] Disposition D/C Disposition: Prison Facility Agency/Destination: [facility] Estimated Length of Stay (ELOS): 16 ELOS Discussed with Patient / Family?: Yes Internal medicine Inpatient Follow-up 05/03/2021 Bryce Alvarez MD [facility] Patient: Stevo Elizalde Date of : 1950 (71 y.o.) PCP: Phyllis Mae MD ASSESSMENT/PLAN: Stevo Elizalde 71 y.o. male Sepsis with acute renal failure without septic shock (HCC) Assessment & Plan Present on admission now resolved. Repeat urine culture no growth. Will discontinue antibiotics. * Acute renal failure superimposed on stage 3a chronic kidney disease ([facility]) Assessment & Plan Acute component more than likely obstructive. A trial of discontinuing Medina catheter was tried. Patient still could not void much yesterday post void residual was 330 mL. Medina was reinserted noted that creatinine increased after the Medina was discontinued. Repeat lab ordered for tomorrow Type 2 diabetes mellitus with stage 3b chronic kidney disease, with long-term current use of insulin ([facility]) Assessment & Plan Blood sugar is stable. Essential hypertension Assessment & Plan Blood pressure is better. Anemia due to stage 3a chronic kidney disease (HCC) Assessment & Plan Repeat lab ordered for tomorrow Urinary tract infection associated with indwelling urethral catheter ([facility]) Assessment & Plan Resolved. Urinary retention Assessment & Plan Confirmed by post void residual. Chronic obstructive pulmonary disease (HCC) Assessment & Plan Stable Summary of assessment and Plan patient clinically stable patient did have post void residual significant with increased creatinine. Now Medina is placed back will discontinue IV fluids and IV antibiotic if BUN/creatinine is stable will plan discharge to senior care tomorrow. SUBJECTIVE: History Since Last Visit: Patient continues to deny any complaints. Poor historian. Review of Systems: Review of Systems Constitutional: Negative for activity change, appetite change, chills, diaphoresis, fatigue, fever and unexpected weight change. HENT: Negative for congestion. Eyes: Negative for visual disturbance. Respiratory: Negative for apnea, cough, choking, chest tightness, shortness of breath, wheezing and stridor. Cardiovascular: Negative for chest pain, palpitations and leg swelling. Gastrointestinal: Negative for abdominal pain, constipation, diarrhea and nausea. Genitourinary: Negative for difficulty urinating. Musculoskeletal: Negative for arthralgias. Skin: Negative for rash. Neurological: Negative for weakness. Psychiatric/Behavioral: The patient is not nervous/anxious. OBJECTIVE: Physical Examination: BP 139/76 (BP Location: Left arm, Patient Position: Lying) Pulse 68 Temp 97.8 F (36.6 C) (Oral) Resp (!) 20 Ht 5' 7.5" Wt 66.6 kg (146 lb 13.2 oz) SpO2 98% BMI 22.66 kg/m Physical Exam Vitals reviewed. Constitutional: Appearance: Normal appearance. He is normal weight. HENT: Head: Normocephalic. Right Ear: External ear normal. Left Ear: External ear normal. Nose: Nose normal. Mouth/Throat: Mouth: Mucous membranes are moist. Pharynx: Oropharynx is clear. Eyes: Extraocular Movements: Extraocular movements intact. Conjunctiva/sclera: Conjunctivae normal. Pupils: Pupils are equal, round, and reactive to light. Cardiovascular: Rate and Rhythm: Normal rate. Pulses: Normal pulses. Heart sounds: Normal heart sounds. Pulmonary: Effort: Pulmonary effort is normal. Breath sounds: Normal breath sounds. Abdominal: General: Bowel sounds are normal. Genitourinary: Comments: Medina in place. Musculoskeletal: General: Normal range of motion. Cervical back: Neck supple. Skin: General: Skin is warm. Neurological: General: No focal deficit present. Mental Status: He is alert. Psychiatric: Mood and Affect: Mood normal. Laboratory and Additional Data Reviewed: Reviewed 05/03/21 10:26 AM: Laboratory, Microbiology, Cardiology, Medications and Transcriptions PHARMACOTHERAPY NOTE: Antimicrobial Therapy Follow-up Assessment / Plan: Stevo Elizalde is a 71 y.o. male initiated on vancomycin for UTI. Vancomycin trough goal is 10-15 mcg/mL. Based on drug level of 11.6, will continue with q36h interval going forward. Will monitor serum creatinine levels and urine output (if available) daily. Pharmacy will continue to follow, order levels, and make adjustments/recommendations as needed. Subjective: Current antibiotic regimen includes: Vancomycin Objective: Labs include: WBC (K/mcL) Date Value 05/01/2021 5.86 09/19/2018 6.1 Creatinine (mg/dL) Date Value 05/02/2021 1.30 06/05/2019 1.1 09/19/2018 1.14 Estimated Creatinine Clearance: 45.6 mL/min (by C-G formula based on SCr of 1.3 mg/dL). Patient Tmax (last 24 hours): 98.2 F Micro: Therapeutic Drug Monitoring: Date 05/03/21 Vancomycin Serum Concentration 11.6 Vancomycin Dose Administered ch. To q36h Pharmacist: Fransisca Johnson RPh,PharmD Contact Number: [phone] [facility] Medicine Inpatient Follow-up 05/02/2021 Don Pennington MD [facility] Patient: Stevo Elizalde Date of : 1950 (71 y.o.) PCP: Phyllis Mae MD ASSESSMENT/PLAN: Principal Problem: Sepsis with acute renal failure without septic shock (HCC) Active Problems: Type 2 diabetes mellitus with stage 3b chronic kidney disease, with long-term current use of insulin (HCC) Chronic obstructive pulmonary disease (HCC) Urinary retention Urinary tract infection associated with indwelling urethral catheter (HCC) Anemia due to stage 3a chronic kidney disease (HCC) Essential hypertension Admitted with a urinary sepsis urine culture grew staph and enterococci on IV antibiotics Doing stable oriented no further issues Stable vital signs Type 2 diabetes mellitus on treatment and blood sugars being monitored Stable chronic lung disease Patient complains of right hip and right thigh pain want x-rays x-rays ordered Stable overall stable vital signs Blood pressure controlled Chronic anemia stable SUBJECTIVE: History Since Last Visit: Wants an x-ray done on his right hip and right thigh no other issues wants his IV access out Tests results: None new Review of Systems: All systems negative except the following: HEENT no encephalopathy appropriate oriented no issues with speech rest of the system review negative on above Pulmonary stable no issues Cardiovascular stable GI stable no complaints creatinine 1.3 OBJECTIVE: Physical Examination: BP 144/64 Pulse 67 Temp 97.6 F (36.4 C) (Oral) Resp 14 Ht 5' 7.5" Wt 62.7 kg (138 lb 3.7 oz) SpO2 94% BMI 21.33 kg/m On examination the HEENT no abnormal findings chest is clear cardiac examination normal first and second heart sound vital signs as above abdomen soft extremities reveal no edema Laboratory and Additional Data Reviewed: Reviewed 05/02/21 8:34 AM: Abnormal labs: Creatinine 1.3, hemoglobin 8. 7 Patient has been urinating with no issues since removal of medina. Upon post void residual at 3:30am patient had bladder scan done with 118ML left in bladder after urinating 250ml Talked to Dr Alvarez, told him patient had voided. Orders to bladder scan after next void, call him back if patient has post void residual more than 300ml Internal medicine Inpatient Follow-up 05/01/2021 Bryce Alvarez MD [facility] Patient: Stevo Elizalde Date of : 1950 (71 y.o.) PCP: Phyllis Mae MD ASSESSMENT/PLAN: Stevo Elizalde 71 y.o. male * Sepsis with acute renal failure without septic shock (HCC) Assessment & Plan Probable source of infection urinary tract infection. Urine culture growing Staph aureus,yeast and enterococci Plan continue vancomycin and Diflucan. Repeat urine culture sent. Type 2 diabetes mellitus with stage 3b chronic kidney disease, with long-term current use of insulin ([facility]) Assessment & Plan Blood sugar is stable. Essential hypertension Assessment & Plan Blood pressure is better. Anemia due to stage 3a chronic kidney disease ([facility]) Assessment & Plan Monitor hemoglobin. Urinary tract infection associated with indwelling urethral catheter ([facility]) Assessment & Plan Source of sepsis. Plan continue IV antibiotic and antifungal treatment. Urinary retention Assessment & Plan Plan bladder training and discontinue Medina monitor for difficulty in urinating and residual urine. May repeat ultrasound of kidney and bladder without Medina before discharge. Chronic obstructive pulmonary disease ([facility]) Assessment & Plan Stable Summary of assessment and Plan plan continue IV antibiotic and antifungal. DC Medina look for any evidence of obstruction or difficulty urinating if none will do ultrasound of the kidney and bladder before discharging back to senior care. Called his and updated the plan. SUBJECTIVE: History Since Last Visit: Patient is a poor historian denies any complaints denies chest pain no shortness of breath no abdominal pain. Pending Lab and Radiology Results Order Current Status Blood Culture #1 Preliminary result Blood Culture #2 Preliminary result Urine Aerobic Culture Preliminary result Review of Systems: Review of Systems Constitutional: Negative for activity change, appetite change, chills, diaphoresis, fatigue, fever and unexpected weight change. HENT: Negative for congestion. Eyes: Negative for visual disturbance. Respiratory: Negative for apnea, cough, choking, chest tightness, shortness of breath, wheezing and stridor. Cardiovascular: Negative for chest pain, palpitations and leg swelling. Gastrointestinal: Negative for abdominal pain, constipation, diarrhea and nausea. Genitourinary: Negative for difficulty urinating. Musculoskeletal: Negative for arthralgias. Skin: Negative for rash. Neurological: Negative for weakness. Psychiatric/Behavioral: The patient is not nervous/anxious. OBJECTIVE: Physical Examination: BP (!) 152/65 (BP Location: Left arm, Patient Position: Lying) Pulse 79 Temp 97.9 F (36.6 C) (Oral) Resp 14 Ht 5' 7.5" Wt 62.7 kg (138 lb 3.7 oz) SpO2 97% BMI 21.33 kg/m Physical Exam Vitals reviewed. Constitutional: Appearance: Normal appearance. He is normal weight. HENT: Head: Normocephalic. Right Ear: External ear normal. Left Ear: External ear normal. Nose: Nose normal. Mouth/Throat: Mouth: Mucous membranes are moist. Pharynx: Oropharynx is clear. Eyes: Extraocular Movements: Extraocular movements intact. Conjunctiva/sclera: Conjunctivae normal. Pupils: Pupils are equal, round, and reactive to light. Cardiovascular: Rate and Rhythm: Normal rate. Pulses: Normal pulses. Heart sounds: Normal heart sounds. Pulmonary: Effort: Pulmonary effort is normal. Breath sounds: Normal breath sounds. Abdominal: General: Bowel sounds are normal. Musculoskeletal: General: Normal range of motion. Cervical back: Neck supple. Skin: General: Skin is warm. Neurological: General: No focal deficit present. Mental Status: He is alert. Psychiatric: Mood and Affect: Mood normal. Laboratory and Additional Data Reviewed: Reviewed 05/01/21 8:54 AM: Laboratory, Microbiology, Radiology, Cardiology, Medications and Transcriptions [facility] Medicine Inpatient Follow-up 04/30/2021 Don Pennington MD [facility] Patient: Stevo Elizalde Date of : 1950 (71 y.o.) PCP: Phyllis Mae MD ASSESSMENT/PLAN: Principal Problem: Sepsis with acute renal failure without septic shock (HCC) Active Problems: Type 2 diabetes mellitus with stage 3b chronic kidney disease, with long-term current use of insulin (HCC) Chronic obstructive pulmonary disease (HCC) Urinary retention Urinary tract infection associated with indwelling urethral catheter (HCC) Anemia due to stage 3a chronic kidney disease (HCC) Essential hypertension 71-year-old white gentleman admitted with the urinary sepsis urine culture grow 50-100,000 staph aureus and enterococci on IV Zosyn and vancomycin, Blood cultures are negative so far. Patient has mild hyperkalemia corrected Has stage II-III chronic renal failure creatinine is at 1.58 Patient is a status post recent right hip intertrochanteric fracture repair during the hospital stay did he did have urinary sepsis with acute renal failure and released to the senior care. Stable type 2 diabetes mellitus Stable chronic lung disease Patient does not have a proven chronic coronary artery disease last nuclear stress test March 2020 was normal Hypertension under control Chronic anemia hemoglobin at 8.4 Patient denies any complaints we will plan physical therapy SUBJECTIVE: History Since Last Visit: No complaints no issues does not appear confused but usually does not react always normal. Tests results: None done. Review of Systems: All systems negative except the following: HEENT denies any headache any issues no difficulty in swallowing speech appeared normal. Pulmonary has a COPD no cough no shortness of breath Cardiovascular no issues GI no nausea no bowel issues Genitourinary has urinary tract infection OBJECTIVE: Physical Examination: BP 104/63 (BP Location: Left arm, Patient Position: Lying) Pulse 87 Temp 97.3 F (36.3 C) (Oral) Resp 16 Ht 5' 7.5" Wt 62.1 kg (137 lb) SpO2 97% BMI 21.14 kg/m On examination patient is resting well no distress HEENT no abnormal finding Chest is clear anteriorly and lateral chest with mild emphysematous changes cardiac examination normal first and second heart sound abdomen full nontender extremities no edema Laboratory and Additional Data Reviewed: Reviewed 04/30/21 8:18 AM: Abnormal labs: Potassium 3.9. Creatinine 1.58 hemoglobin 8.4 WBC 6.59 04/29/21 1404 General Care Management Assessment completed with: Patient;Spouse or significant other Living arrangement: Facility (currently at [facility]) Support system: Significant other Type of residence: shelter Was Home Health ordered? No Was Durable Medical Equipment (DME) ordered? No Bed or wheelchair confined: No Diet: Diabetic diet Inadequate nutrition: No Medication adherence problem: No Experiencing side effects from current medications: No History of falls in last 6 months: (!) Yes Difficulty keeping appointments: No Family aware of the patient's advance care planning wishes: Yes Restorationism or spiritual beliefs that impact treatment: No Chronic pain: No Symptoms Screening Which of the following symptoms do you have? Weakness ADL/ IADL: Patients can perform the following activities without help: Dressing (!) No Bathing (!) No Toileting (!) No Grooming (!) No Housekeeping (!) No Preparing meals (!) No Climbing a flight of stairs (!) No Walking briskly (!) No Moderate exercise (!) No Met with patient and spouse. Admitted from [facility] [place] where he is currently receiving therapy with plan to return home when stronger. CHART REVIEW Reason for visit: Dietitian Screen d/t BMI of 21.14. Current diet order: ALEXSANDRA, renal Diet Current oral nutrition supplement: n/a Recent intake: 75%-100%X, 25%-50%X1. Dx/Pertinent clinical information: Past Medical History: Diagnosis Date Arthritis Carotid artery occlusion CKD (chronic kidney disease) Stage III COPD (chronic obstructive pulmonary disease) ([facility]) Diabetes mellitus ([facility]) TYPE 2 Essential tremor History of pneumonia Hyperlipidemia Hypertension Left carotid artery stenosis 03/30/2016 Leg cramps Leg heaviness MGUS (monoclonal gammopathy of unknown significance) Peptic ulcer disease PVD (peripheral vascular disease) ([facility]) Rhabdomyolysis 2009 Stroke ([facility]) 2009 R side Height: 5' 7.5" Current weight: 62.1 kg (137 lb) BMI Body mass index is 21.14 kg/m . Weight hx: Pt had a 10# weight gain. ? Fluid related, will monitor weights. NO edema per flowsheet. Wt Readings from Last 5 Encounters: 04/27/21 62.1 kg (137 lb) 04/07/21 57.2 kg (126 lb 1.7 oz) 03/24/21 60.3 kg (133 lb) 03/08/21 60.3 kg (133 lb) 11/23/20 64 kg (141 lb) Labs: Recent Labs 04/28/21 0134 04/29/21 0935 NA 138 142 K 4.8 4.4 BICARB 23 21 CL 109* 113* GLUCOSE 98 83 BUN 41* 25 CREATININE 1.94* 1.77* MG 1.4* -- PHOS 4.2* -- Pt is at moderate nutritional risk at this time. An assessment will be completed within 6 days. GIAN Estrella, RDN, LD PHARMACOTHERAPY NOTE: Antimicrobial Therapy Initiation Assessment / Plan: Stevo Elizalde is a 71 y.o. male initiated on antimicrobial therapy for UTI. Patient initiated on vancomycin 1000mg q48h Vancomycin trough goal is 10-15 mcg/mL. Will obtain level when at steady state or when clinically appropriate. Will monitor serum creatinine levels and urine output (if available) daily. Pharmacy will continue to follow, order levels, and make adjustments as needed. Please call pharmacy with questions. Current antibiotic regimen includes: piperacillin-tazobactam 3.375g q8h vancomycin 1000mg q48h Objective: Ht Readings from Last 1 Encounters: 04/27/21 5' 7.5" (171.5 cm) Wt Readings from Last 1 Encounters: 04/27/21 62.1 kg (137 lb) [place] body weight: 67.2 kg (148 lb 4.1 oz) Labs include: WBC (K/mcL) Date Value 04/28/2021 8.86 09/19/2018 6.1 Creatinine (mg/dL) Date Value 04/28/2021 1.94 (H) 06/05/2019 1.1 09/19/2018 1.14 Estimated Creatinine Clearance: 30.2 mL/min (A) (by C-G formula based on SCr of 1.94 mg/dL (H)). Patient Tmax (last 24 hours): 98 F . Micro: 04/27/21 (Urine - Catheter) - MRSA, Enterococcus, Yeast 04/27/21 (Urine - Clean Catch) = NGTD 04/27/21 (Blood) = NGTD 04/28/21 (Urine) = Pending Pharmacist: Kenna Quintero RPh,PharmD Contact Number: [phone] [facility] Medicine Inpatient Follow-up 04/28/2021 Brenda Peña MD [facility] Patient: Stevo Elizalde Date of : 1950 (71 y.o.) PCP: Phyllis Mae MD ASSESSMENT/PLAN: Stevo Elizalde 71 y.o. male residing in a senior care is known for chronic kidney disease stage III with baseline creatinine of 1.1-1.2 history of peripheral vascular disease and carotid artery occlusion COPD history of diabetes mellitus hypertension the hyperlipidemia essential tremor MGUS and peptic ulcer disease previous stroke and rhabdomyolysis is here due to weakness has chronic Medina catheter, Principal Problem: ELBA (acute kidney injury) ([facility]) PLAN: Urinary tract infection Urine culture growing Staph aureus Continue IV Zosyn awaiting final sensitivity Acute kidney injury Serum creatinine improved continue IV fluidRepeat Chem-7 in the morning SUBJECTIVE: Confused pleasantly denies any certain distress All other systems reviewed and negative other than noted above. OBJECTIVE: Physical Examination: BP (!) 166/84 (BP Location: Right arm, Patient Position: Lying) Pulse 82 Temp 98 F (36.7 C) (Oral) Resp 12 Ht 5' 7.5" Wt 62.1 kg (137 lb) SpO2 97% BMI 21.14 kg/m General Appearance: Alert, well appearing, and in no acute distress. HEENT: Head - Normocephalic, atraumatic. Eyes - CHERYL bilaterally and EOMI. Ears - normal external appearance, hearing intact. Nose - normal, no erythema. Throat - mucous membranes moist, pharynx without lesions. Neck: Supple, trachea midline. Cardiovascular: S1, S2 normal. No murmurs, rubs, clicks or gallops appreciated. No pedal edema. Respiratory: Lungs clear to auscultation, no wheezes, rales or rhonchi heard. Abdomen: Soft, non-tender, normal bowel sounds, non-distended, no masses or organomegaly appreciated. Neurological: Grossly normal motor and sensory exam. No focal deficits. Musculoskeletal: No joint tenderness, deformity or swelling. Skin: Normal coloration and turgor. No rashes. Psych: Alert, oriented x 1. Normal mood and affect. CURRENT MEDICATIONS: atorvastatin 10 mg Oral Nightly budesonide-formoteroL 2 puff Inhalation BID calcium-vitamin D 1 tablet Oral BID with meals clopidogreL 75 mg Oral Daily heparin (porcine) 5,000 Units Subcutaneous Q8H [facility] insulin glargine 16 Units Subcutaneous Nightly lispro insulin 0-15 Units Subcutaneous at bedtime insulin lispro 0-30 Units Subcutaneous TID AC isosorbide mononitrate 60 mg Oral Daily pantoprazole 40 mg Oral Daily PARoxetine 20 mg Oral Daily piperacillin-tazobactam (ZOSYN) extended infusion 3.375 g Intravenous Q8H sodium bicarbonate 1,300 mg Oral BID sodium chloride (PF) 5 mL Intravenous Q8H GM tiotropium bromide 2 puff Inhalation Daily Results/Medications Reviewed 04/28/21 1:42 PM: Results from last 7 days Lab Units 04/28/21 0134 04/27/21 1813 04/27/21 1516 04/27/21 1251 SODIUM mmol/L 138 139 135 136 POTASSIUM mmol/L 4.8 5.4* 7.5* 6.8* CHLORIDE mmol/L 109* 113* 113* 112* BUN mg/dL 41* 50* 47* 47* CREATININE mg/dL 1.94* 2.55* 2.71* 2.42* GLUCOSE mg/dL 98 36* 118* 105* CALCIUM mg/dL 9.0 9.5 -- 9.6 Results from last 7 days Lab Units 04/28/21 0134 04/27/21 1603 04/27/21 1516 04/23/21 0344 WBC K/mcL 8.86 -- 11.21* 9.69 HGB g/dL 9.0* -- 9.1* 9.4* HEMOGLOBIN BG g/dL -- 9.5* -- -- HEMATOCRIT, CALCULATED % -- 29.2* -- -- HCT % 28.0* -- 28.5* 29.9* PLT K/mcL 318 -- 353 408* Results from last 7 days Lab Units 04/27/21 1251 ALK PHOS U/L 188* BILIRUBIN TOTAL mg/dL 0.3 TOTAL PROTEIN g/dL 7.3 ALTR U/L 20 AST U/L 12 CULTURES: Reviewed 1:42 PM IMAGING: Reviewed 1:42 PM documented in this encounter [facility] 05-05-2021 Hospital Discharge instructions Vonda Herrera OTA - 05/05/2021 1:12 PM EDT Please issue sock aid at discharge. documented in this encounter [facility] 04-30-2021 Consult note Occupational Therapy OCCUPATIONAL THERAPY EVALUATION Dx: Sepsis with acute renal failure without septic shock Skilled Therapy Needs After Discharge Anticipate Resolution of Current Assessment Limitations Including: Pain, Mechanical Barriers, Social Support Are Skilled Therapy Services Needed After Discharge: Yes Intensity of Skilled Therapy: Up to 5 days per week Anticipated Duration of Skilled Therapy: Duration 10 - 30 days DME Recommendation: To be determined at next level of care Rehab Potential: Good Outcomes Measures Prior Function Daily Activity Raw Score: 24 Prior Function Daily Activity % Impaired: 0% AM-PAC Daily Activity Raw Score: 17 AM-PAC Daily Activity % Impaired: 50.11% Occupational Therapy Assessment The patient's current functional participation deficits are grooming, UE dressing, LE dressing, bathing, toileting, home management, functional mobility. This reduced independence will limit their life roles of premorbid level individual, spouse. The patient's co morbidities do significantly affect patient performance in the above activities and roles. The performance deficits are a result of musculoskeletal impairment(s) in right, lower extremity, generalized debility including strength, range of motion, balance, acitvity tolerance, pain, insight, safety, and knowledge deficit, pain intolerance. The patient's family / caregiver support is a ar manager for return to prior level of function. The patient's compliance is a ar manager to return to prior level of function. During the assessment, minimal to moderate modification of task was required and several treatment options were identified in the plan of care. This consultation required expanded review of the medical and therapy history. Activity Tolerance Activity Tolerance: Tolerates 10 - 20 min activity with multiple rests Therapy Precautions Orthotic Devices: No Weight Bearing Status: WFL General Rehab Precautions: Fall risk Cognition Overall Cognitive Status: Within Functional Limits Arousal/Alertness: Appropriate responses to stimuli Orientation Level: Oriented X4 Executive functioning: Insight Safety Judgment: Decreased awareness of need for assistance, Decreased awareness of need for safety Problem Solving: Assistance required to identify errors made Attention: Attends to quiet environment Hearing Status: WFL Social Interaction: WFL ADL LE Dressing: Moderate assist (Manages L sock with supervision, dep for R sock) Functional Mobility: Minimal assist, Adaptive equipment, Additional time (Taking a few steps from chair to bed) Bed Mobility Sit to Supine: Minimal assist (To elevate LEs over EOB) Functional Transfers Sit to Stand: Minimal assist (From chair to FWW x2) Bed to Chair Transfers: Minimal assist Glass Blower Helper: wheeled walker Home Living Obtained Home Living and PLOF info from: Patient Lives With: Spouse Type of Home: House Home Layout: One level, Laundry in basement Steps to enter home: Ramped entrance Bathroom Shower/Tub: Tub/shower unit Bathroom Toilet: Standard Bathroom Equipment: Grab bars in shower, Shower chair, Hand-held showerhead, Grab bars around toilet Mobility Equipment: Cane, Wheelchair - manual, Wheeled walker Additional Objective Details - Home Living: pt was at rehab in [place] for a hip fracture sustained ~ 1 month ago. 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 For the past ~1 month, pt has been at [facility] for rehab for hip fx. Past Medical History: Diagnosis Date Abnormal stress test 04/21/2016 Dobutamine stress echo October 2018 negative for ischemia at a very low submaximal heart rate reviewed. Normal LV function No history of SD. Stage III renal insufficiency Remote history of CVA Follows with vascular. hospitalized in January of 2017 at [facility] in [place]. He had nausea and some abdominal pain, warm feeling from his head down through his body, perhaps some chest discomfo Arthritis Carotid artery occlusion CKD (chronic kidney disease) Stage III Closed fracture of left orbital floor ([facility]) 06/10/2020 Closed fracture of multiple ribs of left side 06/10/2020 COPD (chronic obstructive pulmonary disease) ([facility]) Diabetes mellitus ([facility]) TYPE 2 Essential tremor Fall down stairs 04/14/2020 History of pneumonia Hyperlipidemia Hypertension Left carotid artery stenosis 03/30/2016 Leg cramps Leg heaviness MGUS (monoclonal gammopathy of unknown significance) Peptic ulcer disease PVD (peripheral vascular disease) ([facility]) Rhabdomyolysis 2009 Statin intolerance 04/01/2019 ??? Rhabdomyolysis in past. Stroke ([facility]) 2010 R side Past Surgical History: Procedure Laterality Date carotid angio 2010 HAND SURGERY Right 2009 IM NAILING FEMUR Right 04/07/2021 Procedure: RIGHT TFN; Surgeon: Dylon Galindo MD; Location: [facility] Main OR; Service: Orthopedic MT THROMBOENDARTECTMY NECK,NECK INCIS Right 2009 SHOULDER OPEN ROTATOR CUFF REPAIR Left 2014 For complete objective data, detailed plan of care and patient education refer to: OT Evaluation flowsheet, OT Evaluation and Treatment flowsheet, OT Treatment flowsheet, patient Plan of Care, Plan of Care progress note, and Patient Education. This note stands as the current Discharge Summary upon patient discharge from the hospital or completion of Occupational Therapy Plan of Care. Physical Therapy PHYSICAL THERAPY EVALUATION and TREATMENT NOTE PHYSICAL THERAPY EVALUATION Skilled Therapy Needs After Discharge Anticipate Resolution of Current Assessment Limitations Including: Mechanical Barriers, Social Support Are Skilled Therapy Services Needed After Discharge: Yes Intensity of Skilled Therapy: Up to 5 days per week Anticipated Duration of Skilled Therapy: Duration 10 - 30 days Rehab Potential: Good Outcomes Measures Prior Function - Basic Mobility Raw Score: 24 Points Prior Function - Basic Mobility % Impaired: 0% AM-PAC Basic Mobility Raw Score: 16 Points AM-PAC Basic Mobility % Impaired: 47.12% Physical Therapy Assessment History: Stevo Elizalde is a 71 y.o. male presenting from senior care with complaint of decreased level of consciousness and abnormal lab. The following factors influence the patient's participation in the PT plan of care: Personal Factors: Age Environmental Factors: Family unavailable to assist The following co-morbidities (from this admission or prior) influence the patient's participation in this plan of care: fall with hip fracture, DM, HTN, anemia,UTI, unrinary retention Number of History elements affecting this patient's PT plan of care: 3 or more Examination of Body Systems: The patient presents with: Musculoskeletal impairments: Strength, Pain, Functional Endurance Neurologic Impairments: Balance, Coordination, Pain Cardiopulmonary Impairments: Activity Tolerance, Edema Integumentary Impairments: Skin Integrity (pt has a surgical incision that is healing). These impairments result in limitations of Gait, Functional Transfers, Stair-Climbing, Safety, Safety Awareness, Activity Tolerance, Insight. These impairments result in restrictions of Household mobility, Community mobility. Number of Body Systems elements affecting this patient's PT plan of care: 3 or more. Clinical Presentation: The patient's clinical presentation for this PT evaluation is evolving with changing characteristics as evidenced by current PT documentation. Activity Tolerance Activity Tolerance: Tolerates 10 - 20 min activity with multiple rests Therapy Precautions General Rehab Precautions: Fall risk (1 person pivot only.) Balance Assessment Sitting Balance - Static: Modified independent Standing Balance - Static: Contact guard assist Glass Blower Helper - Standing Static: wheeled walker Bed Mobility Rolling: Modified independent Supine to Sit: Modified independent Sit to Supine: Modified independent Transfers Sit to Stand: Minimal assist Bed to Chair: Minimal assist Stand Pivot Transfers: Minimal assist Glass Blower Helper: wheeled walker Gait/Locomotion Gait Assistance: Minimal assist Assistive Device: wheeled walker Distance: 3 Feet Pattern: step to Home Living Obtained Home Living and PLOF info from: Patient Lives With: Spouse Type of Home: House Home Layout: One level, Laundry in basement Steps to enter home: Ramped entrance Additional Objective Details - Home Living: pt was at rehab in [place] for a hip fracture sustained ~ 1 month ago. pt came to [facility] from [facility] Prior Level of Function Receives Help From: Spouse Level of [place] - Transfers/Ambulation/Mobility: Independent with functional transfers, Independent with household ambulation, Independent with community ambulation Level of [place] - ADLs: Independent Level of [place] - Homemaking: Independent Driving: Patient does not drive Subjective Impression - Prior Function: pt ambulates with cane at home PHYSICAL THERAPY TREATMENT NOTE Total Treatment Time (Total Session Time): 25 Minutes Timed Code Treatment Minutes: 8 Minutes Neuromuscular Reeducation Gait Training Skilled Intervention Provided: verbal cues, tactile cues For: device management and safe use of device, LE management Resulting in: decreasing fall risk Therapeutic Activities Bed Mobility Transfers Skilled Intervention Provided: verbal cues, tactile cues For: fall prevention, necessary precautions Resulting in: improved balance Functional Transfers (Car and/or Toilet Transfers) Therapeutic Exercises Additional Treatment DetailsPt. educated on precautions, discharge planning, and mobility through verbal instruction and demonstration. Pt demonstrated understanding of education and billed 1 unit therapeutic activity for education. Past Medical History: Diagnosis Date Abnormal stress test 04/21/2016 Dobutamine stress echo October 2018 negative for ischemia at a very low submaximal heart rate reviewed. Normal LV function No history of SD. Stage III renal insufficiency Remote history of CVA Follows with vascular. hospitalized in January of 2017 at [facility] in [place]. He had nausea and some abdominal pain, warm feeling from his head down through his body, perhaps some chest discomfo Arthritis Carotid artery occlusion CKD (chronic kidney disease) Stage III Closed fracture of left orbital floor ([facility]) 06/10/2020 Closed fracture of multiple ribs of left side 06/10/2020 COPD (chronic obstructive pulmonary disease) ([facility]) Diabetes mellitus ([facility]) TYPE 2 Essential tremor Fall down stairs 04/14/2020 History of pneumonia Hyperlipidemia Hypertension Left carotid artery stenosis 03/30/2016 Leg cramps Leg heaviness MGUS (monoclonal gammopathy of unknown significance) Peptic ulcer disease PVD (peripheral vascular disease) ([facility]) Rhabdomyolysis 2009 Statin intolerance 04/01/2019 ??? Rhabdomyolysis in past. Stroke ([facility]) 2010 R side Past Surgical History: Procedure Laterality Date carotid angio 2010 HAND SURGERY Right 2009 IM NAILING FEMUR Right 04/07/2021 Procedure: RIGHT TFN; Surgeon: Dylon Galindo MD; Location: Main OR; Service: Orthopedic MT THROMBOENDARTECTMY NECK,NECK INCIS Right 2009 SHOULDER OPEN ROTATOR CUFF REPAIR Left 2014 For complete objective data, detailed plan of care and patient education refer to: PT Evaluation flowsheet, PT Evaluation and Treatment flowsheet, PT Treatment flowsheet, patient Plan of Care, Plan of Care progress note, and Patient Education. This note stands as the current Discharge Summary upon patient discharge from the hospital or completion of Physical Therapy Plan. COMPLEX DISCHARGE Date: 04/29/2021 Time: 2:08 PM Patient Name: Stevo Elizalde Date of : 1950 Sex: Male Patient Information Primary Caregiver: Other (Comment) ([facility] [place] [facility]) Admitted from [facility], positive for UTI, started on IV antibiotics. Plan is to return there at discharge. Spoke with admissions at [facility], he will need precert to return. PT/OT ordered. Source of Information: Patient, Significant Other Living Arrangements: Facility Support Systems: Spouse/significant other Assistance Needed: Moderate Type of Residence: shelter Care Facility Name: [facility] Prior to Admission Home Care Services: Yes Type of Current Home Care Services: Home health care Patient expects to be discharged to:: [facility] Does the patient need discharge transport arranged?: Yes [facility] Disposition D/C Disposition: [facility] Agency/Destination: [facility] Estimated Length of Stay (ELOS): 16 ELOS Discussed with Patient / Family?: Yes Associated Order(s): ED 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 Elizalde was recently a patient here at [facility]. He was admitted on 04/05 and returned to [facility] [place] for continued rehab on 04/16. He has been at their facility since March 12. He has a history of a recent hip fracture, peripheral vascular disease, hypertension, diabetes mellitus, stroke, chronic kidney disease and urinary tract infections with a chronic medina that was replaced in the ED. He presented to the emergency department (ED) yesterday with a potassium of 7.5 and BUN of 47 and creatinine of 2.71. Today it is down to 4.8 with a BUN of 41 and creatinine of 1.94. The plan is to send off another urine and discharge him back to his facility. Mr. Elizalde is confused and there is no family at bedside, so a chart review was completed. No other needs identified at this time. Care Coordination will continue to follow while he remains in the ED. documented in this encounter [facility] 04-29-2021 History and physical note Internal Medicine Inpatient H&P 04/29/2021 Bryce Alvarez MD [facility] Patient: Stevo Elizalde Date of : 1950 (71 y.o.) PCP: Phyllis Mae MD ASSESSMENT/PLAN: * Sepsis with acute renal failure without septic shock (HCC) Assessment & Plan Probable source of infection urinary tract infection. Urine culture growing E. coli, East and enterococci Plan continue vancomycin and Zosyn pending the final culture results. Type 2 diabetes mellitus with stage 3b chronic kidney disease, with long-term current use of insulin ([facility]) Assessment & Plan Monitor blood sugar. Essential hypertension Assessment & Plan Blood pressure not under control added nifedipine. Anemia due to stage 3a chronic kidney disease (HCC) Assessment & Plan Monitor hemoglobin. Urinary tract infection associated with indwelling urethral catheter (HCC) Assessment & Plan Source of sepsis. Plan continue IV antibiotic and antifungal treatment. Urinary retention Assessment & Plan Patient has indwelling Medina catheter. Summary of assessment and plan; Stevo Elizalde 71 y.o. male with history of chronic kidney disease admitted for acute on chronic renal failure with severe hyperkalemia. Because of acute renal failure thought to be secondary to urinary tract infection and sepsis. Patient's chart reviewed patient's hyper kalemia resolved. Renal function improving. Patient's urine culture growing multiple organisms as patient has clinical signs of endorgan damage we will treat the patient with antibiotic and antifungal treatment. Follow-up culture results for sensitivity. SUBJECTIVE: Chief Complaint/Reason for Visit: Decreased level of consciousness and abnormal lab. History of Present Illness: Stevo Elizalde is a 71 y.o. male presenting from senior care with complaint of decreased level of consciousness and abnormal lab. Patient recently was discharged after meeting treatment for sepsis secondary to urinary tract infection that admission was complicated by a fall and femur fracture. Patient had surgery for the same and prolonged hospital course. On discharge patient was doing well at the senior care had urology follow-up for urinary obstruction as clinically patient was doing better. Upon his follow-up urology appointment patient Medina catheter were is removed. When he came back to the facility repeat lab did show acute worsening of renal functions Medina was placed back in overnight IV hydration was given even with that creatinine jumped to 2.85 along with severe hyperkalemia in view of hyperkalemia patient was thought to have obstructive uropathy and patient was sent to the emergency room. Patient is confused unable to give any history. Most of the history obtained from the chart. Pending Lab and Radiology Results Order Current Status Blood Culture #1 Preliminary result Blood Culture #2 Preliminary result Urine Aerobic Culture Preliminary result Urine Aerobic Culture Preliminary result Review of Systems: Review of Systems Unable to perform ROS: Mental status change Past Medical History: Diagnosis Date Abnormal stress test 04/21/2016 Dobutamine stress echo October 2018 negative for ischemia at a very low submaximal heart rate reviewed. Normal LV function No history of SD. Stage III renal insufficiency Remote history of CVA Follows with vascular. hospitalized in January of 2017 at [facility] in [place]. He had nausea and some abdominal pain, warm feeling from his head down through his body, perhaps some chest discomfo Arthritis Carotid artery occlusion CKD (chronic kidney disease) Stage III Closed fracture of left orbital floor ([facility]) 06/10/2020 Closed fracture of multiple ribs of left side 06/10/2020 COPD (chronic obstructive pulmonary disease) ([facility]) Diabetes mellitus ([facility]) TYPE 2 Essential tremor Fall down stairs 04/14/2020 History of pneumonia Hyperlipidemia Hypertension Left carotid artery stenosis 03/30/2016 Leg cramps Leg heaviness MGUS (monoclonal gammopathy of unknown significance) Peptic ulcer disease PVD (peripheral vascular disease) ([facility]) Rhabdomyolysis 2009 Statin intolerance 04/01/2019 ??? Rhabdomyolysis in past. Stroke ([facility]) 2009 R side Past Surgical History: Procedure Laterality Date carotid angio 2010 HAND SURGERY Right 2009 IM NAILING FEMUR Right 04/07/2021 Procedure: RIGHT TFN; Surgeon: Dylon Galindo MD; Location: Main OR; Service: Orthopedic MT THROMBOENDARTECTMY NECK,NECK INCIS Right 2009 SHOULDER OPEN ROTATOR CUFF REPAIR Left 2014 Family History Problem Relation Age of Onset Heart attack Father Diabetes Sister Heart attack Sister Stroke Sister Hypertension Sister Deep vein thrombosis Sister leg Ovarian cancer Sister Heart attack Brother Other (Old age) Mother Cancer Maternal Grandfather Cancer Paternal Grandmother Cancer Maternal Uncle Heart disease Sister Heart disease Sister Breast cancer Neg Hx Social History Tobacco Use Smoking Status Current Every Day Smoker Packs/day: 0.50 Years: 55.00 Pack years: 27.50 Types: Cigarettes Smokeless Tobacco Never Used Tobacco Comment Former 3-4 ppd 40 years Additional History Comments: None Allergies: Levofloxacin and Varenicline Current HOME Medications: Outpatient Medications Marked as Taking for the 04/27/21 encounter (Hospital Encounter): albuterol (PROVENTIL) 2.5 mg /3 mL (0.083 %) nebulizer solution, Take 2.5 mg by nebulization every 4 (four) hours as needed for wheezing . atorvastatin (LIPITOR) 10 MG tablet, Take 1 (one) tablet (10 mg total) by mouth nightly . bisacodyL (DULCOLAX) 10 mg suppository, Insert 10 mg into the rectum nightly as needed for constipation If no results from Milk of Magnesia. . calcium-vitamin D (calcium-vitamin D) 500 mg(1,250mg) -200 unit per tablet, Take 1 tablet by mouth 2 (two) times a day with meals . clopidogreL (PLAVIX) 75 mg tablet, Take 1 (one) tablet (75 mg total) by mouth daily . fluticasone propion-salmeteroL (Wixela Inhub) 500-50 mcg/dose diskus inhaler, Inhale 1 puff 2 (two) times a day . insulin glargine (LANTUS) 100 unit/mL injection, Inject 16 (sixteen) Units under the skin nightly . isosorbide mononitrate (IMDUR) 30 MG 24 hr tablet, Take 2 (two) tablets (60 mg total) by mouth daily . ghoeldcp-yvuq-HT-calcium-mins 9 mg iron-400 mcg Tab, Take 1 tablet by mouth daily . NIFEdipine (ADALAT CC) 60 MG 24 hr tablet, Take 1 (one) tablet (60 mg total) by mouth daily . nitroGLYCERIN (NITROSTAT) 0.4 MG SL tablet, Place 0.4 mg under the tongue every 5 (five) minutes as needed for chest pain . oxyCODONE-acetaminophen (PERCOCET) 5-325 mg per tablet, Take 1 tablet by mouth every 8 (eight) hours as needed for pain . pantoprazole (PROTONIX) 40 MG tablet, Take 1 (one) tablet (40 mg total) by mouth daily Start: 04/13/21. PARoxetine (PAXIL) 20 MG tablet, Take 20 mg by mouth daily . propranoloL (INDERAL LA) 80 MG 24 hr capsule, Take 1 (one) capsule (80 mg total) by mouth daily . sodium bicarbonate 650 MG tablet, Take 1,300 mg by mouth 2 (two) times a day . sodium phosphates (FLEETS ADULT) 19-7 gram/118 mL Enem, Insert 1 each into the rectum daily as needed If no results from Doculax suppository . tamsulosin (FLOMAX) 0.4 mg capsule, Take 0.4 mg by mouth at bedtime . tiotropium (SPIRIVA) 18 mcg inhalation capsule, Place 18 mcg into inhaler and inhale daily . [DISCONTINUED] acetaminophen (TYLENOL) 325 MG tablet, Take 650 mg by mouth every 6 (six) hours as needed for pain or fever . [DISCONTINUED] albuterol 90 mcg/actuation inhaler, Inhale 2 puffs every 4 (four) hours as needed for wheezing . [DISCONTINUED] magnesium hydroxide (magnesium hydroxide) 400 mg/5 mL Susp, Take 30 mL by mouth every third day as needed If no BM in 3 days . [DISCONTINUED] metFORMIN (GLUCOPHAGE) 500 MG tablet, Take 500 mg by mouth 2 (two) times a day with meals . Current HOSPITAL Medications: acetaminophen (TYLENOL) tablet 650 mg, 650 mg, Oral, Q6H PRN albuterol (PROVENTIL) 2.5 mg /3 mL (0.083 %) nebulizer solution 2.5 mg, 2.5 mg, Nebulization, Q4H PRN atorvastatin (LIPITOR) tablet 10 mg, 10 mg, Oral, Nightly budesonide-formoteroL (SYMBICORT) 160-4.5 mcg/actuation inhaler 2 puff, 2 puff, Inhalation, BID calcium-vitamin D (OS-SHELDON +D) 500 mg(1,250mg) -200 unit per tablet 1 tablet, 1 tablet, Oral, BID with meals clopidogreL (PLAVIX) tablet 75 mg, 75 mg, Oral, Daily heparin (porcine) injection 5,000 Units, 5,000 Units, Subcutaneous, Q8H GM insulin glargine (LANTUS) injection 16 Units, 16 Units, Subcutaneous, Nightly insulin lispro (HumaLOG) injection 0-15 Units, 0-15 Units, Subcutaneous, at bedtime insulin lispro (HumaLOG) injection 0-30 Units, 0-30 Units, Subcutaneous, TID AC isosorbide mononitrate (IMDUR) 24 hr tablet 60 mg, 60 mg, Oral, Daily loratadine (CLARITIN) tablet 10 mg, 10 mg, Oral, Daily PRN NIFEdipine (ADALAT CC) 24 hr tablet 60 mg, 60 mg, Oral, Daily nitroGLYCERIN (NITROSTAT) SL tablet 0.4 mg, 0.4 mg, Sublingual, Q5 Min PRN ondansetron (ZOFRAN-ODT) disintegrating tablet 4 mg, 4 mg, Oral, Q6H PRN OR ondansetron (ZOFRAN) injection 4 mg, 4 mg, Intravenous, Q6H PRN pantoprazole (PROTONIX) EC tablet 40 mg, 40 mg, Oral, Daily PARoxetine (PAXIL) tablet 20 mg, 20 mg, Oral, Daily piperacillin-tazobactam (ZOSYN) IVPB 3.375 g (premix), 3.375 g, Intravenous, Q8H sodium bicarbonate tablet 1,300 mg, 1,300 mg, Oral, BID Saline lock IV, , , Continuous AND sodium chloride (PF) (NS) flush 5 mL, 5 mL, Intravenous, PRN AND sodium chloride (PF) (NS) flush 5 mL, 5 mL, Intravenous, Q8H GM AND sodium chloride 0.9% (NS), 0-150 mL/hr, Intravenous, PRN sodium chloride 0.9% (NS), 50 mL/hr, Intravenous, Continuous tiotropium bromide (SPIRIVA RESPIMAT) 2.5 mcg/actuation inhaler 2 puff, 2 puff, Inhalation, Daily vancomycin (VANCOCIN) 1000 mg in sodium chloride 0.9% (NS) 200 mL IVPB, 1,000 mg, Intravenous, Q48H vancomycin per pharmacy 1 each, 1 each, Intravenous, as indicated by pharmacokinetics OBJECTIVE: Physical Examination: BP 142/64 (BP Location: Left arm, Patient Position: Lying) Pulse 95 Temp 98 F (36.7 C) (Axillary) Resp 14 Ht 5' 7.5" Wt 62.1 kg (137 lb) SpO2 96% BMI 21.14 kg/m Physical Exam Vitals reviewed. Constitutional: General: He is awake. Appearance: Normal appearance. He is underweight. HENT: Head: Normocephalic. Right Ear: External ear normal. Left Ear: External ear normal. Nose: Nose normal. Mouth/Throat: Mouth: Mucous membranes are moist. Pharynx: Oropharynx is clear. Eyes: Extraocular Movements: Extraocular movements intact. Conjunctiva/sclera: Conjunctivae normal. Pupils: Pupils are equal, round, and reactive to light. Cardiovascular: Rate and Rhythm: Normal rate. Pulses: Normal pulses. Heart sounds: Normal heart sounds. Pulmonary: Effort: Pulmonary effort is normal. Breath sounds: Normal breath sounds. Abdominal: General: Bowel sounds are normal. Musculoskeletal: General: Normal range of motion. Cervical back: Neck supple. Skin: General: Skin is warm. Neurological: General: No focal deficit present. Psychiatric: Attention and Perception: He is inattentive. Mood and Affect: Affect is flat. Behavior: Behavior is cooperative. Cognition and Memory: Cognition is impaired. Memory is impaired. Laboratory and Additional Data Reviewed: Reviewed 04/29/21 6:43 PM: Laboratory, Microbiology, Radiology, Cardiology, Medications and Transcriptions [facility] Medicine Inpatient H&P 04/27/2021 Geraldine Reilly MD [facility] Patient: Stevo Elizalde Date of : 1950 (71 y.o.) PCP: Phyllis Mae MD Assessment Stevo Elizalde is a 71 y.o. male residing in a senior care is known for chronic kidney disease stage III with baseline creatinine of 1.1-1.2 history of peripheral vascular disease and carotid artery occlusion COPD history of diabetes mellitus hypertension the hyperlipidemia essential tremor MGUS and peptic ulcer disease previous stroke and rhabdomyolysis is here due to weakness has chronic Medina catheter, noticed rising creatinine and potassium level concern of UTI low blood pressure and bradycardia -Acute kidney injury prerenal azotemia hemodynamic related -Hyperkalemia of renal failure and acidemia on the top of ARB use -Hypotension hypovolemia and concern of sepsis mediated Has functioning Medina catheter septic work-up in process we will keep the patient broad-spectrum antibiotics for now given IV fluids good responder, we will keep the patient on telemetry given potassium lowering cocktail and we will keep the patient on sodium bicarb drip low potassium diet will hold on propranolol Norvasc nifedipine losartan and Metformin. Check the CK level lactic acid and ketones SUBJECTIVE: Chief Complaint: Weakness History of Presenting Illness: Stevo Elizalde is a 71 y.o. male residing in a senior care is known for chronic kidney disease stage III with baseline creatinine of 1.1-1.2 history of peripheral vascular disease and carotid artery occlusion COPD history of diabetes mellitus hypertension the hyperlipidemia essential tremor MGUS and peptic ulcer disease previous stroke and rhabdomyolysis is here due to weakness has chronic Medina catheter, noticed rising creatinine and potassium level concern of UTI low blood pressure and bradycardia, Patient presents by EMS squad for elevated potassium yesterday was 5.7. Patient did have a liter of fluid today and it declined to 6.5. Patient denies any history of chest pain shortness breath fevers or chills. The patient was recently treated for UTI on an outpatient basis. There is no history of any traumas or falls. The patient denies any abdominal pain or vomiting. Again the patient's at the senior care for rehab. Patient presents with abnormal potassium Review of Systems: 10 systems reviewed and negative other than noted in HPI History: Past Medical History: Diagnosis Date Arthritis Carotid artery occlusion CKD (chronic kidney disease) Stage III COPD (chronic obstructive pulmonary disease) ([facility]) Diabetes mellitus ([facility]) TYPE 2 Essential tremor History of pneumonia Hyperlipidemia Hypertension Left carotid artery stenosis 03/30/2016 Leg cramps Leg heaviness MGUS (monoclonal gammopathy of unknown significance) Peptic ulcer disease PVD (peripheral vascular disease) ([facility]) Rhabdomyolysis 2010 Stroke ([facility]) 2010 R side Past Surgical History: Procedure Laterality Date carotid angio 2010 HAND SURGERY Right 2009 IM NAILING FEMUR Right 04/07/2021 Procedure: RIGHT TFN; Surgeon: Dylon Galindo MD; Location: Main OR; Service: Orthopedic MT THROMBOENDARTECTMY NECK,NECK INCIS Right 2009 SHOULDER OPEN ROTATOR CUFF REPAIR Left 2014 Family History Problem Relation Age of Onset Heart attack Father Diabetes Sister Heart attack Sister Stroke Sister Hypertension Sister Deep vein thrombosis Sister leg Ovarian cancer Sister Heart attack Brother Other (Old age) Mother Cancer Maternal Grandfather Cancer Paternal Grandmother Cancer Maternal Uncle Heart disease Sister Heart disease Sister Breast cancer Neg Hx Social History Tobacco Use Smoking Status Current Every Day Smoker Packs/day: 0.50 Years: 55.00 Pack years: 27.50 Types: Cigarettes Smokeless Tobacco Never Used Tobacco Comment Former 3-4 ppd 40 years Social History Substance and Sexual Activity Alcohol Use Yes Comment: occasional Family and Social History reviewed and non-pertinent to this visit Allergies: Levofloxacin and Varenicline Home Medications: Outpatient Medications as of 04/27/2021 Medication Sig albuterol (PROVENTIL) 2.5 mg /3 mL (0.083 %) nebulizer solution Take 2.5 mg by nebulization every 4 (four) hours as needed for wheezing . atorvastatin (LIPITOR) 10 MG tablet Take 1 (one) tablet (10 mg total) by mouth nightly . calcium-vitamin D (calcium-vitamin D) 500 mg(1,250mg) -200 unit per tablet Take 1 tablet by mouth 2 (two) times a day with meals . clopidogreL (PLAVIX) 75 mg tablet Take 1 (one) tablet (75 mg total) by mouth daily . fluticasone propion-salmeteroL (Wixela Inhub) 500-50 mcg/dose diskus inhaler Inhale 1 puff 2 (two) times a day . insulin glargine (LANTUS) 100 unit/mL injection Inject 16 (sixteen) Units under the skin nightly . isosorbide mononitrate (IMDUR) 30 MG 24 hr tablet Take 2 (two) tablets (60 mg total) by mouth daily . metFORMIN (GLUCOPHAGE) 500 MG tablet Take 500 mg by mouth 2 (two) times a day with meals . dvvvsaex-wosd-WU-calcium-mins 9 mg iron-400 mcg Tab Take 1 tablet by mouth daily . NIFEdipine (ADALAT CC) 60 MG 24 hr tablet Take 1 (one) tablet (60 mg total) by mouth daily . nitroGLYCERIN (NITROSTAT) 0.[address] 0.4 mg under the tongue every 5 (five) minutes as needed for chest pain . pantoprazole (PROTONIX) 40 MG tablet Take 1 (one) tablet (40 mg total) by mouth daily Start: 04/13/21. PARoxetine (PAXIL) 20 MG tablet Take 20 mg by mouth daily . propranoloL (INDERAL LA) 80 MG 24 hr capsule Take 1 (one) capsule (80 mg total) by mouth daily . sodium bicarbonate 650 MG tablet Take 1,300 mg by mouth 2 (two) times a day . tiotropium (SPIRIVA) [address] 18 mcg into inhaler and inhale daily . amLODIPine (NORVASC) 5 MG tablet Take 10 mg by mouth daily . insulin aspart U-100 (NovoLOG) 100 unit/mL injection Inject under the skin 3 (three) times a day before meals . loratadine (CLARITIN) 10 mg tablet Take 10 mg by mouth daily as needed for allergies. losartan (COZAAR) 50 MG tablet Take 1 (one) tablet (50 mg total) by mouth 2 (two) times a day . OBJECTIVE: Physical Examination: BP 141/68 Pulse 76 Temp 98.1 F (36.7 C) (Oral) Resp (!) 96 Ht 5' 7.5" Wt 62.1 kg (137 lb) SpO2 96% BMI 21.14 kg/m General Appearance: Alert, well appearing, and in no acute distress. HEENT: Head - Normocephalic, atraumatic. Eyes - CHERYL bilaterally and EOMI. Ears - normal external appearance, hearing intact. Nose - normal, no erythema. Throat - mucous membranes moist, pharynx without lesions. Neck: Supple, trachea midline. Cardiovascular: S1, S2 normal. No murmurs, rubs, clicks or gallops appreciated. No pedal edema. Respiratory: Lungs clear to auscultation, no wheezes, rales or rhonchi heard. Abdomen: Soft, non-tender, normal bowel sounds, non-distended, no masses or organomegaly appreciated. Neurological: Grossly normal motor and sensory exam. No focal deficits. Musculoskeletal: No joint tenderness, deformity or swelling. Skin: Normal coloration and turgor. No rashes. Psych: Alert, oriented x 3. Normal mood and affect. Laboratory and Additional Data Reviewed: Results/Medications Reviewed 04/27/21 9:48 PM: Results from last 7 days Lab Units 04/27/21 1813 04/27/21 1516 04/27/21 1251 04/23/21 0344 SODIUM mmol/L 139 135 136 140 POTASSIUM mmol/L 5.4* 7.5* 6.8* 5.8* CHLORIDE mmol/L 113* 113* 112* 114* BUN mg/dL 50* 47* 47* 43* CREATININE mg/dL 2.55* 2.71* 2.42* 1.77* GLUCOSE mg/dL 36* 118* 105* 136* CALCIUM mg/dL 9.5 -- 9.6 9.1 Results from last 7 days Lab Units 04/27/21 1603 04/27/21 1516 04/23/21 0344 WBC K/mcL -- 11.21* 9.69 HGB g/dL -- 9.1* 9.4* HEMOGLOBIN BG g/dL 9.5* -- -- HEMATOCRIT, CALCULATED % 29.2* -- -- HCT % -- 28.5* 29.9* PLT K/mcL -- 353 408* Results from last 7 days Lab Units 04/27/21 1251 ALK PHOS U/L 188* BILIRUBIN TOTAL mg/dL 0.3 TOTAL PROTEIN g/dL 7.3 ALTR U/L 20 AST U/L 12 CULTURES: Reviewed 9:48 PM IMAGING: Reviewed 9:48 PM documented in this encounter [facility] 04-28-2021 Emergency department Note Provided update to [facility]. Returned to bed, medina changed per VO Dr. Peña. Emptied 900 ml slightly cloudy yellow urine from cath bag prior to changing. PT RIPPED OUT HIS IV AND TOOK HIMSELF OFF CARDIAC AND V/S MONITORING AGAIN, THIS RN REAPPLIED CARDIAC AND V/S MONITOR, REMINDED PT TO PLEASE LEAVE THAT ON AGAIN REAPPLIED MENTAL HEALTH CONSULTANT PT TOOK OFF, THIS RN AND GORDO RN REPOSITIONED PT ON CART, PT REMAINS WITH ATB INFUSING PER PUMP AND IV FLUIDS PT TOOK HIMSELF OFF CARDIAC AND V/S MONITORING, THIS RN BACK CARTSIDE AND REMINDED PT NEED TO KEEP THAT ON, PT REMAINS RESTING ON CART AT THIS TIME Meal tray provided to patient Associated Order(s): ECG 12 Lead; Critical Care Images from the original note were not included. [facility] EMERGENCY DEPARTMENT PCP - Phyllis Mae MD Please excuse grammar and misspelling secondary to Dragon dictation use Chief Complaint Patient presents with Abnormal Lab HPI Chief complaint abnormal potassium This is a 71-year-old male with past medical history significant for CVA chronic indwelling Medina COPD diabetes kidney disease presenting to the emerge department for concern of abnormal potassium. Patient is residing at the [facility]. Patient presents by EMS squad for elevated potassium yesterday was 5.7. Patient did have a liter of fluid today and it declined to 6.5. Patient denies any history of chest pain shortness breath fevers or chills. The patient was recently treated for UTI on an outpatient basis. There is no history of any traumas or falls. The patient denies any abdominal pain or vomiting. Again the patient's at the senior care for rehab. Patient presents with abnormal potassium MEDICAL DECISION MAKING This is a 71-year-old male from a senior care multiple medical problems including history of CVA chronic kidney disease COPD diabetes chronic kidney problems presents here with hyperkalemia. Potassium repeat in the emerge department it was noted to be 7.5. Patient is given IV calcium sodium bicarbonate insulin and dextrose. The patient is given IV fluids. Patient also ordered for IV antibiotics for recent UTI with Rocephin he has no indication of acute sepsis. He does have underlying confusion likely due to metabolic encephalopathy. The patient at this time will be admitted to stepdown unit I did discuss the case with admitting hospitalist who agrees with current management. He does have a indwelling Medina that is draining at this time. Again the patient does have acute life-threatening hyperkalemia with acute on chronic kidney failure . . Results for orders placed or performed during the hospital encounter of 04/27/21 Chem 7 Result Value Ref Range Sodium 135 135 - 145 mmol/L Potassium 7.5 (CH) 3.5 - 5.1 mmol/L Chloride 113 (H) 98 - 108 mmol/L Bicarbonate 17 (L) 21 - 32 mmol/L Creatinine 2.71 (H) 0.80 - 1.30 mg/dL Glucose 118 (H) 65 - 99 mg/dL BUN 47 (H) 8 - 25 mg/dL eGFR 22 (L) >=60 mL/min/1.73 m2 BUN/Creatinine Ratio 17.3 10.0 - 20.0 Anion Gap 13 10 - 20 mmol/L EKG 12-lead Result Value Ref Range Ventricular Rate 58 BPM Atrial Rate 58 BPM P-R Interval 182 ms QRS Duration 84 ms Q-T Interval 398 ms QTC Calculation (Bezet) 390 ms P [place] 65 degrees R [place] 67 degrees T [place] 77 degrees POC Venous Blood Gas Panel-Pulm Result Value Ref Range pH, Venous 7.27 (L) 7.32 - 7.42 pCO2, Eric 39.2 (L) 41.0 - 51.0 mm Hg pO2, Eric 22 (L) 25 - 40 mm Hg Base Excess, Eric -8.1 (L) -2.0 - 2.0 HCO3, Eric 18.1 (L) 24.0 - 28.0 mmol/L Hemoglobin, Blood Gas 9.5 (L) 13.5 - 17.5 g/dL Hematocrit, Calculated 29.2 (L) 41.0 - 53.0 % O2 Sat, Eric 29.5 (L) 40.0 - 70.0 % FIO2 21 Specimen Source Not specified IMV 0 TIDAL VOLUME 0 RESP RATE 0 CBC Auto Differential Result Value Ref Range WBC 11.21 (H) 4.50 - 11.00 K/mcL RBC 2.69 (L) 4.50 - 5.90 M/mcL Hemoglobin 9.1 (L) 13.5 - 17.5 g/dL Hematocrit 28.5 (L) 41.0 - 53.0 % MCV 105.9 (H) 80.0 - 100.0 fL MCH 33.8 26.0 - 34.0 pg MCHC 31.9 31.0 - 37.0 g/dL Platelets 353 150 - 400 K/mcL RDW - CV 14.6 11.6 - 14.8 % MPV 11.4 9.4 - 12.4 fL Neutrophils 67.3 % Lymphocytes 16.9 % Monocytes 11.4 % Eosinophils 3.3 % Basophils 0.4 % IG Percent 0.70 % Neutrophils Abs 7.54 (H) 1.70 - 7.00 K/mcL Lymphocytes Abs 1.89 0.90 - 4.00 K/mcL Monocytes Abs 1.28 (H) 0.30 - 0.90 K/mcL Eosinophils Abs 0.37 0.00 - 0.50 K/mcL Basophils Abs 0.05 0.00 - 0.30 K/mcL IG Absolute 0.08 0.00 - 0.30 K/mcL Nucleated RBC 0.0 % Nucleated RBC Abs 0.00 0.00 - 0.00 K/mcL Radiographic Imaging (if any) During ED Visit All Radiographic Imaging (if any) were read by Radiologist and reviewed and viewed by myself I have also reviewed narcotic score prior to giving any narcotic pain medications No orders to display Medications Ordered/Given During ED Visit Medications sodium chloride 0.9% (NS) bolus 500 mL (500 mL Intravenous New Bag 04/27/211723) sodium chloride 0.9% (NS) (has no administration in time range) cefTRIAXone (ROCEPHIN) IVPB 1 g (premix) (1,000 mg Intravenous New Bag 04/27/211723) loratadine (CLARITIN) tablet 10 mg (has no administration in time range) nitroGLYCERIN (NITROSTAT) SL tablet 0.4 mg (has no administration in time range) PARoxetine (PAXIL) tablet 20 mg (has no administration in time range) tiotropium bromide (SPIRIVA RESPIMAT) 2.5 mcg/actuation inhaler 2 puff (has no administration in time range) insulin lispro (HumaLOG) injection 3 Units (has no administration in time range) sodium bicarbonate tablet 1,300 mg (has no administration in time range) albuterol (PROVENTIL) 2.5 mg /3 mL (0.083 %) nebulizer solution 2.5 mg (has no administration in time range) budesonide-formoteroL (SYMBICORT) 160-4.5 mcg/actuation inhaler 2 puff (has no administration in time range) clopidogreL (PLAVIX) tablet 75 mg (has no administration in time range) calcium-vitamin D (OS-SHELDON +D) 500 mg(1,250mg) -200 unit per tablet 1 tablet (has no administration in time range) atorvastatin (LIPITOR) tablet 10 mg (has no administration in time range) pantoprazole (PROTONIX) EC tablet 40 mg (has no administration in time range) isosorbide mononitrate (IMDUR) 24 hr tablet 60 mg (has no administration in time range) insulin glargine (LANTUS) injection 16 Units (has no administration in time range) sodium chloride (PF) (NS) flush 5 mL (has no administration in time range) And sodium chloride (PF) (NS) flush 5 mL (has no administration in time range) And sodium chloride 0.9% (NS) (has no administration in time range) insulin lispro (HumaLOG) injection 0-15 Units (has no administration in time range) heparin (porcine) injection 5,000 Units (has no administration in time range) insulin lispro (HumaLOG) injection 0-30 Units (has no administration in time range) ondansetron (ZOFRAN-ODT) disintegrating tablet 4 mg (has no administration in time range) Or ondansetron (ZOFRAN) injection 4 mg (has no administration in time range) sodium bicarbonate 150 mEq in dextrose 5% 1000 mL infusion (has no administration in time range) sodium zirconium cyclosilicate (LOKELMA) packet 10 g (has no administration in time range) sodium chloride 0.9% (NS) bolus 1,000 mL (has no administration in time range) sodium bicarbonate 1 mEq/mL (8.4 %) injection 50 mEq (50 mEq Intravenous Given 04/27/211657) calcium gluconate 100 mg/mL (10%) injection 1 g (1 g Intravenous Given 04/27/211655) dextrose 50 % in water (D50W) syringe 50 mL (50 mL Intravenous Given 04/27/211656) insulin regular (HumuLIN R, NovoLIN R) injection 10 Units (10 Units Intravenous Given 04/27/211657) ECG 12 Lead Date/Time: 04/27/2021 3:16 PM Performed by: Lev Desai MD Authorized by: Lev Desai MD Interpreted by ED attending physician Comparison: not compared with previous ECG Rhythm: sinus rhythm and sinus bradycardia BPM: 58 Conduction: conduction normal ST Segments: ST segments normal T Waves: T waves normal MT Interval: 182 QRS Interval: 84 QT Interval: 390 Clinical impression: sinus bradycardia Critical Care Performed by: Lev Desai MD Authorized by: Lev Desai MD Total critical care time: 45 minutes Critical care was necessary to treat or prevent imminent or life-threatening deterioration of the following conditions: metabolic crisis and renal failure. Critical care was time spent personally by me on the following activities: development of treatment plan with patient or surrogate, evaluation of patient's response to treatment, examination of patient, obtaining history from patient or surrogate, ordering and performing treatments and interventions, ordering and review of laboratory studies, ordering and review of radiographic studies, pulse oximetry, re-evaluation of patient's condition and review of old charts. Review of Systems Review of Systems Unable to perform ROS: Mental status change All systems reviewed negative except as mentioned above. Physical Exam Vital Signs During ED Visit (as charted by nursing) Patient Vitals for the past 24 hrs: BP Temp Temp src Pulse Resp SpO2 Height Weight 04/27/21 1630 119/63 (!) 59 16 95 % 04/27/21 1512 (!) 95/50 98.1 F (36.7 C) Oral (!) 57 16 99 % 5' 7.5" 62.1 kg (137 lb) Physical Exam Vitals and nursing note reviewed. Constitutional: General: He is not in acute distress. Appearance: He is well-developed. He is not diaphoretic. Comments: Somewhat chronically ill 71-year-old male awake alert but confused appears to be in no acute distress HENT: Head: Normocephalic and atraumatic. Right Ear: External ear normal. Left Ear: External ear normal. Nose: Nose normal. Eyes: General: Right eye: No discharge. Left eye: No discharge. Conjunctiva/sclera: Conjunctivae normal. Pupils: Pupils are equal, round, and reactive to light. Neck: Vascular: No JVD. Trachea: Phonation normal. Cardiovascular: Rate and Rhythm: Normal rate and regular rhythm. Heart sounds: Normal heart sounds, S1 normal and S2 normal. No murmur heard. No friction rub. No gallop. Pulmonary: Effort: Pulmonary effort is normal. No respiratory distress. Breath sounds: Normal breath sounds. No wheezing. Chest: Chest wall: No tenderness. Abdominal: General: Bowel sounds are normal. There is no distension. Palpations: Abdomen is soft. Tenderness: There is no abdominal tenderness. There is no guarding or rebound. Negative signs include Newsome's sign and McBurney's sign. Hernia: No hernia is present. There is no hernia in the ventral area. Genitourinary: Comments: Medina catheter is in place and is draining Musculoskeletal: General: Normal range of motion. Cervical back: Neck supple. Lymphadenopathy: Cervical: No cervical adenopathy. Skin: General: Skin is warm and dry. Capillary Refill: Capillary refill takes less than 2 seconds. Neurological: Mental Status: He is alert. He is disoriented. Cranial Nerves: Cranial nerves are intact. No cranial nerve deficit. Past Medical History Past Medical History: Diagnosis Date Arthritis Carotid artery occlusion CKD (chronic kidney disease) Stage III COPD (chronic obstructive pulmonary disease) (HCC) Diabetes mellitus (HCC) TYPE 2 Essential tremor History of pneumonia Hyperlipidemia Hypertension Left carotid artery stenosis 03/30/2016 Leg cramps Leg heaviness MGUS (monoclonal gammopathy of unknown significance) Peptic ulcer disease PVD (peripheral vascular disease) (HCC) Rhabdomyolysis 2010 Stroke (HCC) 2010 R side Past Surgical History Past Surgical History: Procedure Laterality Date carotid angio 2010 HAND SURGERY Right 2009 IM NAILING FEMUR Right 04/07/2021 Procedure: RIGHT TFN; Surgeon: Dylon Galindo MD; Location: Main OR; Service: Orthopedic MT THROMBOENDARTECTMY NECK,NECK INCIS Right 2009 SHOULDER OPEN ROTATOR CUFF REPAIR Left 2014 Family History Family History Problem Relation Age of Onset Heart attack Father Diabetes Sister Heart attack Sister Stroke Sister Hypertension Sister Deep vein thrombosis Sister leg Ovarian cancer Sister Heart attack Brother Other (Old age) Mother Cancer Maternal Grandfather Cancer Paternal Grandmother Cancer Maternal Uncle Heart disease Sister Heart disease Sister Breast cancer Neg Hx Social History Social History Socioeconomic History Marital status: Spouse name: Not on file Number of children: Not on file Years of education: Not on file Highest education level: Not on file Occupational History Occupation: Disability Comment: [employer] Tobacco Use Smoking status: Current Every Day Smoker Packs/day: 0.50 Years: 55.00 Pack years: 27.50 Types: Cigarettes Smokeless tobacco: Never Used Tobacco comment: Former 3-4 ppd 40 years Vaping Use Vaping Use: Never used Substance and Sexual Activity Alcohol use: Yes Comment: occasional Drug use: No Sexual activity: Not on file Other Topics Concern Not on file Social History Narrative Pets: cat Positive PPD- 1976 Lives in two story home, takes care of mother in law. All ADL on one story, upstairs to go outside of home. Cane use. Social Determinants of Health Financial Resource Strain: Difficulty of Paying Living Expenses: Food Insecurity: Worried About Running Out of Food in the Last Year: Ran Out of Food in the Last Year: Transportation Needs: Lack of Transportation (Medical): Lack of Transportation (Non-Medical): Physical Activity: Days of Exercise per Week: Minutes of Exercise per Session: Stress: Feeling of Stress : Social Connections: Frequency of Communication with Friends and Family: Frequency of Social Gatherings with Friends and Family: Attends [employer] Services: Active Member of Clubs or Organizations: Attends Club or Organization Meetings: Marital Status: Allergies Allergies Allergen Reactions Levofloxacin GI Intolerance Varenicline Swelling Medications Patient's Medications New Prescriptions No medications on file Previous Medications ALBUTEROL (PROVENTIL) 2.5 MG /3 ML (0.083 %) NEBULIZER SOLUTION Take 2.5 mg by nebulization every 4 (four) hours as needed for wheezing . AMLODIPINE (NORVASC) 5 MG TABLET Take 5 mg by mouth daily . ATORVASTATIN (LIPITOR) 10 MG TABLET Take 1 (one) tablet (10 mg total) by mouth nightly . CALCIUM-VITAMIN D (CALCIUM-VITAMIN D) 500 MG(1,250MG) -200 UNIT PER TABLET Take 1 tablet by mouth 2 (two) times a day with meals . CLOPIDOGREL (PLAVIX) 75 MG TABLET Take 1 (one) tablet (75 mg total) by mouth daily . FLUTICASONE PROPION-SALMETEROL (WIXELA INHUB) 500-50 MCG/DOSE DISKUS INHALER Inhale 1 puff 2 (two) times a day . INSULIN ASPART U-100 (NOVOLOG) 100 UNIT/ML INJECTION Inject under the skin 3 (three) times a day before meals . INSULIN GLARGINE (LANTUS) 100 UNIT/ML INJECTION Inject 16 (sixteen) Units under the skin nightly . ISOSORBIDE MONONITRATE (IMDUR) 30 MG 24 HR TABLET Take 2 (two) tablets (60 mg total) by mouth daily . LORATADINE (CLARITIN) 10 MG TABLET Take 10 mg by mouth daily as needed for allergies. LOSARTAN (COZAAR) 50 MG TABLET Take 1 (one) tablet (50 mg total) by mouth 2 (two) times a day . METFORMIN (GLUCOPHAGE) 500 MG TABLET Take 500 mg by mouth 2 (two) times a day with meals . NIFEDIPINE (ADALAT CC) 60 MG 24 HR TABLET Take 1 (one) tablet (60 mg total) by mouth daily . NITROGLYCERIN (NITROSTAT) 0.[address] 0.4 mg under the tongue every 5 (five) minutes as needed for chest pain . PANTOPRAZOLE (PROTONIX) 40 MG TABLET Take 1 (one) tablet (40 mg total) by mouth daily Start: 04/13/21. PAROXETINE (PAXIL) 20 MG TABLET Take 20 mg by mouth daily . PROPRANOLOL (INDERAL LA) 80 MG 24 HR CAPSULE Take 1 (one) capsule (80 mg total) by mouth daily . SODIUM BICARBONATE 650 MG TABLET Take 1,300 mg by mouth 2 (two) times a day . TIOTROPIUM (SPIRIVA) [address] 18 mcg into inhaler and inhale daily . Modified Medications No medications on file Discontinued Medications No medications on file Lev Desai MD 04/27/21 1733 Patient presents per EMS for abnormal labs. Per EMS K+ was 5.7 yesterday, had a liter fluid and today level was 6.5. Denies any chest pain or SOB. Bed: 10 Expected date: Expected time: Means of arrival: Comments: [place] documented in this encounter [facility] 04-26-2021 History of Present illness Narrative Images from the original note were not included. Progress Note [facility] [address] [place] [address] [facility] [address] [place] [address] Physician Group 04/26/2021 Kateryna Yeboah CNP Provider Location:[facility] Patient Location Field Mechanic/Site Lead: None Patient Location: [facility] ([place]) Patient: Stevo Elizalde Date of : 1950 (71 y.o. male) PCP: Phyllis Mae MD HPI Stevo is a 71-year-old patient with a history of type 2 diabetes mellitus, stage III chronic kidney disease, long-term current use of insulin, COPD, PVD, hypertension, urinary retention, indwelling urinary catheter, history of ETOH dependence, anemia, history of CVA, history of fall. Stevo is being seen today for abnormal labs. Stevo was seen by urology who completed trial of removal of indwelling urinary catheter with bladder scan. Urinary bladder results as follows: Prevoid volume 416 cc and the postvoid volume is 297 cc. Conclusion markedly increased urinary bladder postvoid residual. Patient had labs obtained on 04/23/2021 which showed elevated creatinine and potassium. Order given to reinsert indwelling medina catheter, notify urology, stop losartan, repeat labs on 04/26/2021. 04/26/2021: Labs reviewed with slight improvement in potassium. Creatinine remains unchanged. New orders given to floor staff; see below. The following portions of the patient's history were reviewed and updated as appropriate: allergies, current medications, past family history, past medical history, past social history, past surgical history and problem list. Past Medical History: Diagnosis Date Arthritis Carotid artery occlusion CKD (chronic kidney disease) Stage III COPD (chronic obstructive pulmonary disease) ([facility]) Diabetes mellitus ([facility]) TYPE 2 Essential tremor History of pneumonia Hyperlipidemia Hypertension Left carotid artery stenosis 03/30/2016 Leg cramps Leg heaviness MGUS (monoclonal gammopathy of unknown significance) Peptic ulcer disease PVD (peripheral vascular disease) ([facility]) Rhabdomyolysis 2010 Stroke ([facility]) 2010 R side Review of Systems Positives and pertinent negatives as per HPI. All other systems were reviewed and are negative. Physical Exam Constitutional: General: He is not in acute distress. Appearance: He is ill-appearing (chronically ill appearing). He is not toxic-appearing or diaphoretic. HENT: Head: Normocephalic and atraumatic. Right Ear: There is no impacted cerumen. Left Ear: There is no impacted cerumen. Nose: Nose normal. No congestion or rhinorrhea. Mouth/Throat: Mouth: Mucous membranes are moist. Pharynx: No oropharyngeal exudate or posterior oropharyngeal erythema. Eyes: General: Right eye: No discharge. Left eye: No discharge. Extraocular Movements: Extraocular movements intact. Conjunctiva/sclera: Conjunctivae normal. Neck: Vascular: No carotid bruit. Cardiovascular: Rate and Rhythm: Normal rate and regular rhythm. Pulses: Normal pulses. Heart sounds: Normal heart sounds. No murmur heard. No friction rub. No gallop. Pulmonary: Effort: Pulmonary effort is normal. No respiratory distress. Breath sounds: Normal breath sounds. No wheezing, rhonchi or rales. Chest: Chest wall: No tenderness. Abdominal: General: Bowel sounds are normal. There is no distension. Palpations: Abdomen is soft. Tenderness: There is no abdominal tenderness. There is no right CVA tenderness, left CVA tenderness, guarding or rebound. Musculoskeletal: General: No swelling or deformity. Normal range of motion. Cervical back: Normal range of motion. No rigidity or tenderness. Right lower leg: No edema. Left lower leg: No edema. Lymphadenopathy: Cervical: No cervical adenopathy. Skin: General: Skin is warm and dry. Coloration: Skin is not jaundiced. Findings: No bruising, erythema, lesion or rash. Neurological: Mental Status: He is alert. Motor: Weakness (generalized muscle weakness) present. Psychiatric: Comments: Patient states he feels intermittently confused. Assessment/Plan: #1 discontinue loratadine #2 discontinue amlodipine #3 Monitor BP readings Q shift #4 Begin 0.9% NS at 50ml/hr x 10 hours #5 Repeat CBC and CMP in AM #6 obtain urinalysis. Staff reports that patient had decrease in intake - Dietary currently looking at patient weekly. Weight from 135 lbs on admission to 131 lbs Problem List Items Addressed This Visit Endocrine Type 2 diabetes mellitus with stage 3b chronic kidney disease, with long-term current use of insulin (HCC) - Primary Genitourinary Urinary retention Other Visit Diagnoses Elevated serum creatinine Patient's allergies, current medications, past family history, past medical history, past social history, past surgical history and problem list have been reviewed on Chart and in [facility]. Kateryna Yeboah CNP This note is created with the assistance of a speech-recognition program. While intending to generate a document that actually reflects the content of the visit, the document can still have some errors including those of syntax and sound a- like substitutions which may escape proofreading. In such instances, actual meaning can be extrapolated by contextual derivation. documented in this encounter [facility] 04-20-2021 History of Present illness Narrative Images from the original note were not included. Progress Note [facility] [address] [place] [address] [facility] [address] [place] [address] Physician Group 04/19/2021 Kateryna Yeboah CNP Provider Location:[facility] Patient Location Field Mechanic/Site Lead: None Patient Location: [facility] ([place]) Patient: Stevo Elizalde Date of : 1950 (71 y.o. male) PCP: Phyllis Mae MD HPI Stevo is a 71-year-old patient with a history of type 2 diabetes mellitus, stage III chronic kidney disease, long-term current use of insulin, COPD, PVD, hypertension, urinary retention, indwelling urinary catheter, history of EtOH dependence, anemia, history of CVA, history of fall. Stevo is being seen today for readmission into the SNF. Patient had fall at facility with acute change in LOC patient was transferred to ER found to have urosepsis, metabolic encephalopathy secondary to renal failure, closed displaced intertrochanteric fracture of right femur. Stevo is sitting up in his wheelchair he is answering all questions appropriately for me. He admits to some discomfort to the right hip. States as needed medication is effective in treating his pain/discomfort. Blood pressures reviewed with good control. Blood sugars reviewed given current blood sugar readings will discontinue Humalog and monitor continue Lantus as ordered. Continue with indwelling Medina catheter secondary to urinary retention patient will need outpatient urology follow-up secondary to urinary retention. The following portions of the patient's history were reviewed and updated as appropriate: allergies, current medications, past family history, past medical history, past social history, past surgical history and problem list. Past Medical History: Diagnosis Date Arthritis Carotid artery occlusion CKD (chronic kidney disease) Stage III COPD (chronic obstructive pulmonary disease) ([facility]) Diabetes mellitus (HCC) TYPE 2 Essential tremor History of pneumonia Hyperlipidemia Hypertension Left carotid artery stenosis 03/30/2016 Leg cramps Leg heaviness MGUS (monoclonal gammopathy of unknown significance) Peptic ulcer disease PVD (peripheral vascular disease) ([facility]) Rhabdomyolysis 2010 Stroke ([facility]) 2010 R side Review of Systems Positives and pertinent negatives as per HPI. All other systems were reviewed and are negative. Physical Exam Constitutional: General: He is not in acute distress. Appearance: He is ill-appearing (chronically ill appearing). He is not toxic-appearing or diaphoretic. HENT: Head: Normocephalic and atraumatic. Right Ear: There is no impacted cerumen. Left Ear: There is no impacted cerumen. Nose: Nose normal. No congestion or rhinorrhea. Mouth/Throat: Mouth: Mucous membranes are moist. Pharynx: No oropharyngeal exudate or posterior oropharyngeal erythema. Eyes: General: Right eye: No discharge. Left eye: No discharge. Extraocular Movements: Extraocular movements intact. Conjunctiva/sclera: Conjunctivae normal. Abdominal: General: Bowel sounds are normal. There is no distension. Palpations: Abdomen is soft. Tenderness: There is no abdominal tenderness. There is no right CVA tenderness, left CVA tenderness, guarding or rebound. Skin: Neurological: Mental Status: He is alert. Mental status is at baseline. Motor: Weakness (generalized muscle weakness) present. Assessment/Plan: Patient will need CBC with differential, CMP, magnesium level, vitamin b12/folate. Discontinue Humalog insulin. Continue Lantus as ordered. Patient needs OP follow up with urology secondary to urinary retention. Blood pressure review with good control noted. Problem List Items Addressed This Visit Endocrine Type 2 diabetes mellitus with stage 3b chronic kidney disease, with long-term current use of insulin (HCC) Respiratory Chronic obstructive pulmonary disease (HCC) Cardiovascular and Mediastinum Essential hypertension Genitourinary Urinary retention Anemia due to stage 3a chronic kidney disease (HCC) - Primary Other History of cerebrovascular accident History of fall Patient's allergies, current medications, past family history, past medical history, past social history, past surgical history and problem list have been reviewed on Chart and in [facility]. Kateryna Yeboah CNP This note is created with the assistance of a speech-recognition program. While intending to generate a document that actually reflects the content of the visit, the document can still have some errors including those of syntax and sound a- like substitutions which may escape proofreading. In such instances, actual meaning can be extrapolated by contextual derivation. documented in this encounter [facility] 04-20-2021 Evaluation note Diagnosis Anemia due to stage 3a chronic kidney disease (HCC)- Primary Type 2 diabetes mellitus with stage 3b chronic kidney disease, with long-term current use of insulin (HCC) Essential hypertension Unspecified essential hypertension Chronic obstructive pulmonary disease, unspecified COPD type (HCC) Urinary retention Unspecified retention of urine History of cerebrovascular accident Transient ischemic attack (TIA), and cerebral infarction without residual deficits History of fall Personal history of fall documented in this encounter [id number] History of Present illness Narrative* Kateryna Yeboah CNP - 04/05/2021 2:18 PM EDT Progress Note [facility] [address] [facility] [address] [place] [phone] [facility] Physician Group 04/05/2021 Kateryna Yeboah CNP Provider Location:[facility] Patient Location Field Mechanic/Site Lead: None Patient Location: [facility] ([place]) Patient: Stevo Elizalde Date of : 1950 (71 y.o. male) PCP: Phyllis Mae MD CODE STATUS full code HPI Stevo is a 71-year-old male with a history of MGUS, PUD, PVD, history of stroke in 2009, COPD, CKD, DM, essential tremor, hyperlipidemia, HTN being seen today per request/routine monthly visit. Staff reports that patient had fall recently without obvious noted injury. Neuro checks are WNL. is concerned today that patient does complain of right hip pain. wanted sent to ER for x-rays - I did explain to family member that x-rays could be obtained at the facility, which she was unaware of and she is in agreement with this plan. Of note patient did admit to the facility for right hip greater trochanter fracture. During last visit with Dr. Galindo his impression of the x-ray showed "2 views of the right hip reveal a minimally displaced greater trochanter fracture. Otherwise, noevidence of a fracture in the femoral neck or lesser trochanter." Right hip discomfort was noted in orthopedic visit on 03/24. Continues as needed tramadol for same. He is able to move right lower extremity, toes, good cap refill noted. Patient was to continue weightbearing as tolerated and he is to follow-up with orthopedics in 1 month for repeat x-rays. I did discuss with today who is [facility] have [facility] completed. X-ray of right hip was ordered patient is tender to to palpation over the right greater trochanter. No gross abnormalities noted to right hip. Aside from above-noted patient currently denies any concerns. He is sitting up in the recliner he follows simple commands. PERRLA intact. He has bilateral equal grasps. Patient was treated previously [facility] for acute rising creatinine. Creatinine elevated to 3.17 was noted that patient was unable to void Medina catheter was placed with greater than 500 mL output. Creatinine has subsequently improved we will continue to monitor. Patient will need referral to urology. Staff did notify later in day patient was pointing at things that were not present. [facility]. Labs and UA C&S ordered stat. - Shortly after orders given son arrived at facility and requested that patient go to ED for further evaluation. The following portions of the patient's history were reviewed and updated as appropriate: allergies, current medications, past family history, past medical history, past social history, past surgicalhistory and problem list. Past Medical History: Diagnosis Date Arthritis Carotid artery occlusion CKD (chronic kidney disease) Stage III COPD (chronic obstructive pulmonary disease) ([facility]) Diabetes mellitus ([facility]) TYPE 2 Essential tremor History of pneumonia Hyperlipidemia Hypertension Leg cramps Leg heaviness MGUS (monoclonal gammopathy of unknown significance) Peptic ulcer disease PVD (peripheral vascular disease) ([facility]) Rhabdomyolysis 2010 Stroke ([facility]) 2010 R side Review of Systems Positives and pertinent negatives as per HPI. All other systems were reviewed and are negative. Physical Exam Constitutional: General: He is not in acute distress. Appearance: He is normal weight. He is ill-appearing (chronically ill appearing). He is not toxic-appearing or diaphoretic. HENT: Head: Normocephalic and atraumatic. Right Ear: External ear normal. Left Ear: External ear normal. Nose: Nose normal. No congestion or rhinorrhea. Mouth/Throat: Mouth: Mucous membranes are moist. Pharynx: Oropharynx is clear. No oropharyngeal exudate or posterior oropharyngeal erythema. Eyes: General: Right eye: No discharge. Left eye: No discharge. Conjunctiva/sclera: Conjunctivae normal. Cardiovascular: Rate and Rhythm: Normal rate and regular rhythm. Pulses: Normal pulses. Heart sounds: Normal heart sounds. No murmur heard. No friction rub. No gallop. Pulmonary: Effort: Pulmonary effort is normal. No respiratory distress. Breath sounds: Normal breath sounds. No stridor. No wheezing, rhonchi or rales. Chest: Chest wall: No tenderness. Abdominal: General: Bowel sounds are normal. There is no distension. Tenderness: There is no abdominal tenderness. There is no right CVA tenderness, left CVA tenderness, guarding or rebound. Genitourinary: Comments: Indwelling medina catheter Musculoskeletal: General: Tenderness (TTP right hip) and signs of injury (right hip) present. No swelling or deformity. Cervical back: Normal range of motion and neck supple. No rigidity or tenderness. Right lower leg: No edema. Left lower leg: No edema. Lymphadenopathy: Cervical: No cervical adenopathy. Skin: Capillary Refill: Capillary refill takes less than 2 seconds. Neurological: Mental Status: He is alert. Psychiatric: Mood and Affect: Mood normal. Behavior: Behavior normal. Assessment/Plan: Patient to have referral to urology secondary to urinary retention/ indwelling medina catheter. Decrease Lantus insulin to 16 units BID. BS checks AC and HS to continue. Place on list to re-evaluation of BS readings in x 1 week CBC and CMP stat. Obtain UA C&S XR right hip as ordered. Okay to send to ED per family request. Problem List Items Addressed This Visit Endocrine Type 2 diabetes mellitus (HCC) - Primary Respiratory Chronic obstructive pulmonary disease (HCC) Musculoskeletal and Integument Closed fracture of hip (HCC) Genitourinary Urinary retention Other History of cerebrovascular accident History of fall Patient's allergies, current medications, past family history, past medical history, past social history, past surgical history and problem list have been reviewed on Chart and in [facility]. Kateryna Yeboah CNP This note is created with the assistance of a speech-recognition program. While intending to generate a document that actually reflects the content of the visit, the document can still have some errors including those of syntax and sound a- like substitutions which may escape proofreading. In such instances, actual meaning can be extrapolated by contextual derivation. documented in this [id number] History of Present illness Narrative* Dylon Galindo MD - 03/24/2021 6:02 PM EDT Dictation on: 03/24/2021 6:02 PM by: DYLON GALIDNO [[id number]] documented in this [id number] History of Present illness Narrative* Kateryna Yeboah CNP - 03/22/2021 3:46 PM EDT Progress Note [facility] [address] [facility] [address] [place], [place] [id number] [place] [address] Physician Group 03/22/2021 Kateryna Yeboah CNP Provider Location:[facility] Patient Location Field Mechanic/Site Lead: None Patient Location: [facility] ([place]) Patient: Stevo Elizalde Date of : 1950 (71 y.o. male) PCP: Phyllis Mae MD CODE STATUS full code HPI Stevo is a 71-year-old male with a history of MGUS, PUD, PVD, history of stroke in 2009, COPD, CKD, DM, essential tremor, hyperlipidemia, HTN being seen today for review of BS since AC HS checks were instituted. 02/27/2021: Upon review of BS readings patient has several BS readings in 80 to 90 range. Given patient age and current guidelines will adjust insulin and re-evaluate. : BS remain below 100 - Insulin decreased will re-evaluate for effectiveness The following portions of the patient's history were reviewed and updated as appropriate: allergies, current medications, past family history, past medical history, past social history, past surgicalhistory and problem list. Past Medical History: Diagnosis Date Arthritis Carotid artery occlusion CKD (chronic kidney disease) Stage III COPD (chronic obstructive pulmonary disease) (HCC) Diabetes mellitus (HCC) TYPE 2 Essential tremor History of pneumonia Hyperlipidemia Hypertension Leg cramps Leg heaviness MGUS (monoclonal gammopathy of unknown significance) Peptic ulcer disease PVD (peripheral vascular disease) ([facility]) Rhabdomyolysis 2010 Stroke ([facility]) 2010 R side Review of Systems Positives and pertinent negatives as per HPI. All other systems were reviewed and are negative. Physical Exam Constitutional: General: He is not in acute distress. Appearance: He is normal weight. He is ill-appearing (chronically ill appearing). He is not toxic-appearing or diaphoretic. HENT: Head: Normocephalic and atraumatic. Right Ear: External ear normal. Left Ear: External ear normal. Nose: Nose normal. No congestion or rhinorrhea. Mouth/Throat: Mouth: Mucous membranes are moist. Pharynx: Oropharynx is clear. No oropharyngeal exudate or posterior oropharyngeal erythema. Eyes: General: Right eye: No discharge. Left eye: No discharge. Conjunctiva/sclera: Conjunctivae normal. Cardiovascular: Rate and Rhythm: Normal rate and regular rhythm. Pulses: Normal pulses. Heart sounds: Normal heart sounds. No murmur heard. No friction rub. No gallop. Pulmonary: Effort: Pulmonary effort is normal. No respiratory distress. Breath sounds: Normal breath sounds. No stridor. No wheezing, rhonchi or rales. Chest: Chest wall: No tenderness. Abdominal: General: Bowel sounds are normal. There is no distension. Tenderness: There is no abdominal tenderness. There is no right CVA tenderness, left CVA tenderness, guarding or rebound. Musculoskeletal: General: Tenderness (TTP right hip) and signs of injury (right hip) present. No swelling or deformity. Cervical back: Normal range of motion and neck supple. No rigidity or tenderness. Right lower leg: No edema. Left lower leg: No edema. Lymphadenopathy: Cervical: No cervical adenopathy. Skin: Capillary Refill: Capillary refill takes less than 2 seconds. Neurological: Mental Status: He is alert. Psychiatric: Mood and Affect: Mood normal. Behavior: Behavior normal. Assessment/Plan: Decrease Lantus insulin to 20 units BID. BS checks AC and HS to continue. Place on list to re-evaluate x 1 week Problem List Items Addressed This Visit Endocrine Type 2 diabetes mellitus (HCC) - Primary Patient's allergies, current medications, past family history, past medical history, past social history, past surgical history and problem list have been reviewed on Chart and in [facility]. Kateryna Yeboah CNP This note is created with the assistance of a speech-recognition program. While intending to generate a document that actually reflects the content of the visit, the document can still have some errors including those of syntax and sound a- like substitutions which may escape proofreading. In such instances, actual meaning can be extrapolated by contextual derivation. documented in this [id number] History of Present illness Narrative* Kateryna Yeboah CNP - 03/15/2021 9:21 PM EDT Progress Note [facility] [address] [facility] [address] [place] [id number] [facility] Physician Group 03/15/2021 Kateryna Yeboah CNP Provider Location:[facility] Patient Location Field Mechanic/Site Lead: None Patient Location: [facility] ([place]) Patient: Stevo Elizalde Date of : 1950 (71 y.o. male) PCP: Phyllis Mae MD CODE STATUS full code HPI Stevo is a 71-year-old male with a history of MGUS, PUD, PVD, history of stroke in 2009, COPD, CKD, DM, essential tremor, hyperlipidemia, HTN being seen today for admission into the SNF. Patient sustained a fall at home and presented to ED 7 to 10 days later. Patient sustained right greater trochanter fracture. Orthopedics consult with recommendations to bear weight as tolerated with a walker and recommendations to proceed with SNF placement if patient is unable to transition home due to pain. Patient is to follow-up with orthopedics in 2 weeks for repeat x-rays. CT exam was completed in ED which showed : FINDINGS: Parenchyma: The brain parenchyma demonstrates normal cash-white differentiation. There is periventricular hypodensity consistent with ischemic changes from small vessel disease. There is no mass or areas of increased density to suggest an acute bleed. Ventricles and extra-axial spaces: The CSF-containing spaces are enlarged, consistent with volume loss. No extraaxial fluid collections are identified. Visualized paranasal sinuses: Clear. Mastoid air cells: Clear. Orbits: Normal. Bones: No focal abnormality. Soft tissues: Normal. IMPRESSION: No acute intracranial abnormality. Speech therapy did stop me upon initial evaluation of patient stating that patient did have some delirium when presenting to senior care. After review of hospital records it does appear as though patient had delirium at hospital as well. Considered multifactorial we will continue to monitor CT head was clear we will repeat lab work. Patient was not confused during my assessment I did not note any delirium acutely while evaluating the patient. The following portions of the patient's history were reviewed and updated as appropriate: allergies, current medications, past family history, past medical history, past social history, past surgicalhistory and problem list. Past Medical History: Diagnosis Date Arthritis Carotid artery occlusion CKD (chronic kidney disease) Stage III COPD (chronic obstructive pulmonary disease) ([facility]) Diabetes mellitus ([facility]) TYPE 2 Essential tremor History of pneumonia Hyperlipidemia Hypertension Leg cramps Leg heaviness MGUS (monoclonal gammopathy of unknown significance) Peptic ulcer disease PVD (peripheral vascular disease) ([facility]) Rhabdomyolysis 2010 Stroke ([facility]) 2010 R side Review of Systems Positives and pertinent negatives as per HPI. All other systems were reviewed and are negative. Physical Exam Constitutional: General: He is not in acute distress. Appearance: He is normal weight. He is ill-appearing (chronically ill appearing). He is not toxic-appearing or diaphoretic. HENT: Head: Normocephalic and atraumatic. Right Ear: External ear normal. Left Ear: External ear normal. Nose: Nose normal. No congestion or rhinorrhea. Mouth/Throat: Mouth: Mucous membranes are moist. Pharynx: Oropharynx is clear. No oropharyngeal exudate or posterior oropharyngeal erythema. Eyes: General: Right eye: No discharge. Left eye: No discharge. Conjunctiva/sclera: Conjunctivae normal. Cardiovascular: Rate and Rhythm: Normal rate and regular rhythm. Pulses: Normal pulses. Heart sounds: Normal heart sounds. No murmur heard. No friction rub. No gallop. Pulmonary: Effort: Pulmonary effort is normal. No respiratory distress. Breath sounds: Normal breath sounds. No stridor. No wheezing, rhonchi or rales. Chest: Chest wall: No tenderness. Abdominal: General: Bowel sounds are normal. There is no distension. Tenderness: There is no abdominal tenderness. There is no right CVA tenderness, left CVA tenderness, guarding or rebound. Musculoskeletal: General: Tenderness (TTP right hip) and signs of injury (right hip) present. No swelling or deformity. Cervical back: Normal range of motion and neck supple. No rigidity or tenderness. Right lower leg: No edema. Left lower leg: No edema. Lymphadenopathy: Cervical: No cervical adenopathy. Skin: Capillary Refill: Capillary refill takes less than 2 seconds. Neurological: Mental Status: He is alert. Psychiatric: Mood and Affect: Mood normal. Behavior: Behavior normal. Assessment/Plan: Blood pressure reviewed with overall stable findings. X 1 outlier on 03/14 - Continue to monitor andnotify if BP below 100/60. Patient's labs from hospital reviewed. Baseline creatinine around 1.3-1.6. Per hospital notes patient did have delirium in the hospital. Heparin stop date is 21 days after admission into half-way facility. Obtain CBC, CMP, magnesium, hemoglobin A1c, fasting lipids with next lab draw. Blood sugars to be checked AC and HS. Problem List Items Addressed This Visit Endocrine Type 2 diabetes mellitus (HCC) Respiratory Chronic obstructive pulmonary disease (HCC) - Primary Cardiovascular and Mediastinum PVD (peripheral vascular disease) (HCC) PAD (peripheral artery disease) (HCC) Musculoskeletal and Integument Closed fracture of hip (HCC) Other Tobacco use Patient's allergies, current medications, past family history, past medical history, past social history, past surgical history and problem list have been reviewed on Chart and in [facility]. Kateryna Yeboah CNP This note is created with the assistance of a speech-recognition program. While intending to generate a document that actually reflects the content of the visit, the document can still have some errors including those of syntax and sound a- like substitutions which may escape proofreading. In such instances, actual meaning can be extrapolated by contextual derivation. documented in this [id number] History of Present illness NarrativeMED REFILL. F/U AFTER HOSPITAL STAY ([facility] , 4 TIMES WITHIN LAST 3 MONTHS ) AND HAD NH STAY BETWEEN HOSPITAL STAYS . S/P R HIP REPLACEMENT ( HAD R HIP FRACTURE ,RECURRENT FALLS ). MEDICATIONS WERE CHANGED DURING THE HOSPITAL STAY. COMPLAINS OF LOW BACK PAIN 6/10 ,WITH RADICULOPATHY . STILL HAS R HIP PAIN 4/10 ON AND OFF AND NECK PAIN 5/10 .WONDERS IF CAN HAVE PERCOCET OR TRAMADOL FOR PAIN .HAS F/U WITH [facility] [employer] AND ENDO AND ORTHOPEDICS . .PER PT AND HE QUIT ETOH SINCE HOSPITAL STAY.AND CUT BACK ON SMOKING . HAS POOR APPETITE, WEIGHT LOSS , CHRONIC FATIGUE. STOPPED USING THE O2FOR HYPOXEMIA HOME HEALTH EVALUATIONS (WAS D/C FROM [place] [facility]) .CURRENTLY HAS HOME HEALTH AND GETS PHYSICAL TX AT HOME. AORTIC ANEURYSM AND DEPRESSION/ ANXIETY HAVE BEEN STABLE. [employer] Work Phone: [phone]) 379-675305-04-2021 History of Present illness NarrativeMED REFILL. F/U AFTER HOSPITAL STAY ([facility] , 4 TIMES WITHIN LAST 3 MONTHS ) AND HAD NH STAY BETWEEN HOSPITAL STAYS . S/P R HIP REPLACEMENT ( HAD R HIP FRACTURE ,RECURRENT FALLS ). MEDICATIONS WERE CHANGED DURING THE HOSPITAL STAY. COMPLAINS OF LOW BACK PAIN 6/10 ,WITH RADICULOPATHY . STILL HAS R HIP PAIN 4/10 ON AND OFF AND NECK PAIN 5/10 .WONDERS IF CAN HAVE PERCOCET OR TRAMADOL FOR PAIN .HAS F/U WITH [employer] [facility] AND ENDO AND ORTHOPEDICS . .PER PT AND HE QUIT ETOH SINCE HOSPITAL STAY.AND CUT BACK ON SMOKING . HAS POOR APPETITE, WEIGHT LOSS , CHRONIC FATIGUE. STOPPED USING THE O2FOR HYPOXEMIA HOME HEALTH EVALUATIONS (WAS D/C FROM [place] [facility]) .CURRENTLY HAS HOME HEALTH AND GETS PHYSICAL TX AT HOME. AORTIC ANEURYSM AND DEPRESSION/ ANXIETY HAVE BEEN STABLE. [facility] Internal [facility] Work Phone: [phone] 110-850805-03-2021 History of Present illness NarrativeF/U ON CAROTID DOPPLER AND U/S OF ABDOMINAL AORTA. . DIDN'T FINISH THE PHYSICAL TX LAST YEAR. HAS B/L LEG WEAKNESS . HAD NO RECENT FALLS.. PT IS ASYMPTOMATIC WITH HAVING VASCULAR MYELOPATHY , COPD HAS BEEN STABLE.. STILL DRINKS ETOH, BUT LESS FREQUENT.[facility] Medicine Work Phone: [phone] Telephone encounter Note* Telephone Encounter - Armand Can MA - 05/07/2019 8:05 AM EDT This medication was d/c 10/2017. Refused this medication. [id number] Miscellaneous Notes* Telephone Encounter - Armand Can MA - 05/07/2019 8:05 AM EDT This medication was d/c 10/2017. Refused this medication. documented in this [id number] History of Present illness NarrativeXR AND LAB F/U. HAS CHRONIC LOW BACK PAIN AND NECK PAIN 6-7/10 ON AND OFF.(WAS REFERRED TO PAIN SPECIALIST EARLIER). PRURITUS OF SKIN OF LEGS X SEVERAL WEEKS . WEAKNESS OF LEGS . LIMPS OF R WRIST ANDR FOREARM W/O PAIN (PT NOTICED HAVING THEM SEVERAL WEEKS AGO). CHRONIC FATIGUE .HAS F/U WITH CARDIOL OGIST FOR CHRONIC STABLE ANGINA AND WITH VASCULAR SURGEON FOR THORACIC ARTERY ANEURYSM ,WHICH HAVE BEEN STABLE .HAS H/O ETOH ABUSE , QUIT SINCE LAST HOSPITAL STAY.[facility] Internal Medicine Work Phone: [phone] History of Present illness Narrative INSOMNIA , OTC MELATONIN DOESN'T HELP.. TREMOR OF HANDS .CHRONIC LOW BACK PAIN 5-6/10 , WAS REFERRED TO PAIN SPECIALIST EARLIER . CURRENTLY GETS PHYSICAL TX . WEIGHT GAIN, APPETITE IS IMPROVING .PT FEELS MUCH BETTER COMPARED TO LAST VISIT. HAS CHRONIC STABLE ANGINA AND HAS CARDIO F/U. THORACIC ARTERY ANEURYSM AND PVD HAVE BEEN STABLE . CLAUDICATION IS IMPROVING. 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 PT CUT BACK ON ETOH AND SMOKING , BUT HASN'T COMPLETELY STOPPED THEM YET .PT IS HERE WITH .[facility] Internal [facility] Work Phone: [phone] History of Present illness NarrativeCHEST PAIN B/L WITH RADIATIONS TO L ARM WITH SEVERITY OF 5/10 LASTING AROUND 5 MINUTES ON AND OFF XSEVERAL WEEKS. NOTHING MAKES THE PAIN BETTER OR WORSE. HAS OC IN 1 WEEK WITH [employer] AND WANT TO WAIT UNTIL THAT VISIT FOR CARDIAC EVALUATIONS. HAS EPIGASTRIC ABDOMINAL PAIN 4-5/10 ON AND OFF X SEVERAL WEEKS. NEEDS NEBULIZER MASK AND TUBE. NEEDS FLU SHOT TODAY.[facility] Internal Medicine Work Phone: Evaluation note* Diagnosis Claudication of lower extremity (HCC)- [facility] Diagnosis Chronic obstructive pulmonary disease, unspecified COPD type ([facility])- Primary PVD (peripheral vascular disease) ([facility]) Unspecified peripheral vascular disease PAD (peripheral artery disease) ([facility]) Unspecified peripheral vascular disease Closed fracture of right hip with routine healing, subsequent encounter Tobacco use Type 2 diabetes mellitus with other specified complication, with long-term current use of insulin ([facility]) [facility]* Diagnosis Type 2 diabetes mellitus with other specified complication, with long-term current use of insulin ([facility])- Primary [facility]* Diagnosis Closed displaced fracture of greater trochanter of right femur with routine healing, subsequent encounter- Primary [facility] Type 2 diabetes mellitus with other specified complication, with long-term current use of insulin ([facility])- Primary Chronic obstructive pulmonary disease, unspecified COPD type ([facility]) Closed fracture of right hip with routine healing, subsequent encounter Urinary retention Unspecified retention of urine History of fall Personal history of fall History of cerebrovascular accident Transient ischemic attack (TIA), and cerebral infarction without residual deficits [facility]* Diagnosis Urinary retention- Primary Unspecified retention of urine [facility] Diagnosis Type 2 diabetes mellitus with stage 3b chronic kidney disease, with long-term current use of insulin ([facility])- Primary Elevated serum creatinine Other nonspecific findings on examination of blood Urinary retention Unspecified retention of urine [facility] Diagnosis Acute renal failure superimposed on chronic kidney disease, unspecified CKD stage, unspecified acute renal failure type ([facility]) Hyperkalemia Hyperpotassemia Acute UTI Urinary tract infection, site not specified H/O: CVA (cerebrovascular accident) Metabolic encephalopathy Neck pain Cervicalgia PAD (peripheral artery disease) ([facility]) Unspecified peripheral vascular disease PVD (peripheral vascular disease) ([facility]) Unspecified peripheral vascular disease Type 2 diabetes mellitus with stage 3b chronic kidney disease, with long-term current use of insulin ([facility]) Essential hypertension Unspecified essential hypertension ELBA (acute kidney injury) ([facility]) Closed displaced intertrochanteric fracture of right femur with routine healing, subsequent encounter Sepsis with acute renal failure without septic shock ([facility]) Anemia due to stage 3a chronic kidney disease ([facility]) Urinary tract infection associated with indwelling urethral catheter ([facility]) Urinary retention Unspecified retention of urine Chronic obstructive pulmonary disease ([facility]) [facility] Diagnosis Closed displaced fracture of greater trochanter of right femur with routine healing, subsequent encounter- Primary [facility] Diagnosis Type 2 diabetes mellitus with stage 3b chronic kidney disease, with long-term current use of insulin ([facility])- Primary Essential hypertension Unspecified essential hypertension [facility]* Diagnosis Closed displaced fracture of greater trochanter of right femur with routine healing, subsequent encounter- Primary [facility]* Diagnosis Type 2 diabetes mellitus without complications (HCC) [facility] Diagnosis Type 2 diabetes mellitus with stage 3b chronic kidney disease, with long-term current use of insulin (HCC)- Primary [facility]* Diagnosis GREEN (dyspnea on exertion)- Primary Other dyspnea and respiratory abnormality [facility]* Diagnosis Type 2 diabetes mellitus with stage 3b chronic kidney disease, with long-term current use of insulin (HCC)- Primary Essential hypertension Unspecified essential hypertension [facility]* Diagnosis Essential tremor- Primary Cough syncope Cough [facility]* Diagnosis Non-pressure chronic ulcer of left lower leg, 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)- Primary [facility]* Diagnosis Rib pain- Primary Unspecified chest pain Stenosis of left carotid artery Occlusion and stenosis of carotid artery without mention of cerebral infarction Hyperlipidemia, unspecified hyperlipidemia type Gastro-esophageal reflux disease without esophagitis Superficial gastritis without hemorrhage, unspecified chronicity Pulmonary emphysema, unspecified emphysema type (CMS/HCC) CRF (chronic renal failure), stage 3 (moderate) (CMS/HCC) Hypertension associated with type 2 diabetes mellitus (CMS/HCC) Type 2 diabetes mellitus without complication, with long-term current use of insulin (CMS/HCC) Other fatigue Screening for prostate cancer Special screening for malignant neoplasm of prostate Vascular myelopathies (CMS/HCC) Vascular myelopathies Depression, major, in remission (CMS/HCC) Chronic stable angina (CMS/HCC) Chronic shortness of breath Hepatic steatosis Other chronic nonalcoholic liver disease H/O fall Abdominal pain, LUQ Abdominal pain, RUQ documented in this encounter [facility] Work Phone: Evaluation note* Diagnosis 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HCC)- Primary Essential tremor Cough syncope Cough Mild cognitive impairment Mild cognitive impairment, so stated [facility] Diagnosis Type 2 diabetes mellitus with stage 3b chronic kidney disease, with long-term current use of insulin (HCC)- Primary [facility] Diagnosis Essential hypertension- Primary Unspecified essential hypertension Tobacco use Dyslipidemia Other and unspecified hyperlipidemia History of cerebrovascular accident Transient ischemic attack (TIA), and cerebral infarction without residual deficits Chronic obstructive pulmonary disease, unspecified COPD type (HCC) Musculoskeletal chest pain Other chest pain Essential tremor [facility] Diagnosis Type 2 diabetes mellitus with hyperglycemic coma ([facility])- Primary Hyperlipidemia, unspecified hyperlipidemia type Need for influenza vaccination Need for prophylactic vaccination and inoculation against influenza Chronic obstructive pulmonary disease, unspecified COPD type ([facility]) H/O: CVA (cerebrovascular accident) Essential tremor Encounter for vaccination Hypertriglyceridemia Pure hyperglyceridemia documented in this encounter [facility] Work Phone: Evaluation note* Diagnosis Atypical parkinsonism- Primary Diabetic polyneuropathy associated with type 2 diabetes mellitus ([facility]) Essential tremor Mild cognitive impairment Mild cognitive impairment, so stated [facility] Diagnosis Type 2 diabetes mellitus with stage 3b chronic kidney disease, with long-term current use of insulin ([facility])- Primary Dyslipidemia Other and unspecified hyperlipidemia Essential hypertension Unspecified essential hypertension [facility] Diagnosis Hypertension associated with type 2 diabetes mellitus ([facility])- Primary Type 2 diabetes mellitus with other circulatory complication, with long-term current use of insulin ([facility]) Gait difficulty Abnormality of gait Muscle weakness of lower extremity Muscle weakness (generalized) Recurrent falls Centrilobular emphysema ([facility]) Screening for prostate cancer Special screening for malignant neoplasm of prostate Hypertriglyceridemia Pure hyperglyceridemia Anemia, unspecified type Non-pressure chronic ulcer of other part of right foot with fat layer exposed ([facility]) Vascular myelopathies ([facility]) Vascular myelopathies Depression, major, in remission ([facility]) Thoracic aortic aneurysm without rupture, unspecified part ([facility]) Stage 3b chronic kidney disease ([facility]) Stable angina pectoris Calculus of gallbladder without cholecystitis without obstruction documented in this encounter [facility] Work Phone: Evaluation note* Diagnosis Diabetic foot ([facility])- Primary Type II or unspecified type diabetes mellitus with other specified manifestations, not stated as uncontrolled PVD (peripheral vascular disease) ([facility]) Unspecified peripheral vascular disease Type 2 diabetes mellitus with stage 3b chronic kidney disease, with long-term current use of insulin ([facility]) Claudication of lower extremity ([facility]) Tobacco use Xerosis of skin Onychodystrophy Other specified disease of nail Onychomycosis Dermatophytosis of nail Toe pain, bilateral [facility] Diagnosis Type 2 diabetes mellitus with stage 3b chronic kidney disease, with long-term current use of insulin (HCC)- Primary [facility] Diagnosis Type 2 diabetes mellitus with stage 3b chronic kidney disease, with long-term current use of insulin (HCC) [facility] Diagnosis Hypotension, unspecified hypotension type- Primary Upper respiratory tract infection, unspecified type documented in this encounter [facility] Work Phone: Evaluation note* Diagnosis Routine general medical examination at health care facility- Primary Routine general medical examination at a health care facility Superficial gastritis without hemorrhage, unspecified chronicity Weakness of upper extremity Weakness of both lower extremities Recurrent falls Neck pain Cervicalgia H/O: CVA (cerebrovascular accident) Essential tremor Neurogenic claudication Spinal stenosis of lumbar region Stable angina pectoris ([facility]) Hypertension associated with type 2 diabetes mellitus (Multi) Encounter for vaccination 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Multi) Hypotensive episode documented in this encounter [facility] Work Phone: Evaluation note* Diagnosis Diabetic foot (HCC)- Primary Type II or unspecified type diabetes mellitus with other specified manifestations, not stated as uncontrolled PVD (peripheral vascular disease) ([facility]) Unspecified peripheral vascular disease Type 2 diabetes mellitus with stage 3b chronic kidney disease, with long-term current use of insulin (HCC) Claudication of lower extremity (HCC) Tobacco use Xerosis of skin Onychodystrophy Other specified disease of nail Onychomycosis Dermatophytosis of nail Toe pain, bilateral [facility] Diagnosis Type 2 diabetes mellitus with stage 3b chronic kidney disease, with long-term current use of insulin (HCC)- Primary [facility] Diagnosis Ingrown toenail- Primary Ingrowing nail Paronychia of great toe PVD (peripheral vascular disease) (HCC) Unspecified peripheral vascular disease Tobacco use Xerosis of skin Diabetic foot (HCC) Type II or unspecified type diabetes mellitus with other specified manifestations, not stated as uncontrolled [facility] Diagnosis Onychodystrophy- Primary Other specified disease of nail Onychomycosis Dermatophytosis of nail PVD (peripheral vascular disease) (HCC) Unspecified peripheral vascular disease Tobacco use Diabetic foot ([facility]) Type II or unspecified type diabetes mellitus with other specified manifestations, not stated as uncontrolled Toe pain, bilateral documented in this encounter [facility] note* Diagnosis Bilateral carotid artery stenosis- Primary Occlusion and stenosis of carotid artery without mention of cerebral infarction PAD (peripheral artery disease) ([facility]) Unspecified peripheral vascular disease History of carotid endarterectomy Other postprocedural status Dyslipidemia Other and unspecified hyperlipidemia Claudication of lower extremity ([facility]) Neurogenic claudication- Primary Spinal stenosis of lumbar region PAD (peripheral artery disease) ([facility]) Unspecified peripheral vascular disease Claudication of lower extremity ([facility]) Bilateral carotid artery stenosis Occlusion and stenosis of carotid artery without mention of cerebral infarction History of carotid endarterectomy Other postprocedural status Occlusion and stenosis of right carotid artery Dyslipidemia Other and unspecified hyperlipidemia Fall, initial encounter- Primary Alcoholic intoxication with complication ([facility]) EtOH dependence ([facility]) Hyperkalemia Hyperpotassemia Acute renal failure superimposed on stage 4 chronic kidney disease, unspecified acute renal failure type ([facility]) Acute UTI Urinary tract infection, site not specified Closed displaced intertrochanteric fracture of right femur with routine healing, subsequent encounter Type 2 diabetes mellitus with stage 3b chronic kidney disease, with long-term current use of insulin ([facility]) Bilateral hip pain Pain in joint, pelvic region and thigh PVD (peripheral vascular disease) ([facility]) Unspecified peripheral vascular disease PAD (peripheral artery disease) ([facility]) Unspecified peripheral vascular disease Chronic obstructive pulmonary disease, unspecified COPD type ([facility]) Alcohol dependence with unspecified alcohol-induced disorder ([facility]) History of cerebrovascular accident Transient ischemic attack (TIA), and cerebral infarction without residual deficits History of fall Personal history of fall Acute renal failure superimposed on chronic kidney disease, unspecified CKD stage, unspecified acute renal failure type Hyperkalemia Hyperpotassemia Acute UTI Urinary tract infection, site not specified H/O: CVA (cerebrovascular accident) Metabolic encephalopathy Neck pain Cervicalgia PAD (peripheral artery disease) ([facility]) Unspecified peripheral vascular disease PVD (peripheral vascular disease) ([facility]) Unspecified peripheral vascular disease Type 2 diabetes mellitus with stage 3b chronic kidney disease, with long-term current use of insulin ([facility]) Essential hypertension Unspecified essential hypertension ELBA (acute kidney injury) ([facility]) Closed displaced intertrochanteric fracture of right femur with routine healing, subsequent encounter ELBA (acute kidney injury) (HCC) Urinary tract infection associated with indwelling urethral catheter (HCC) Urinary retention Unspecified retention of urine COPD exacerbation (HCC)- Primary Obstructive chronic bronchitis with exacerbation Acute exacerbation of chronic obstructive pulmonary disease (COPD) (HCC) Obstructive chronic bronchitis with exacerbation Chronic kidney disease, unspecified CKD stage Fall Unspecified fall Rib pain on left side Acute hypoxemic respiratory failure (HCC) Stage 3b chronic kidney disease (HCC) Type 2 diabetes mellitus with stage 3b chronic kidney disease, with long-term current use of insulin ([facility]) PVD (peripheral vascular disease) ([facility]) Unspecified peripheral vascular disease Neurogenic claudication Spinal stenosis of lumbar region Dyslipidemia Other and unspecified hyperlipidemia Anemia due to stage 3a chronic kidney disease (HCC) Essential hypertension Unspecified essential hypertension Essential tremor Musculoskeletal chest pain Other chest pain Type 2 diabetes mellitus with stage 3b chronic kidney disease, with long-term current use of insulin ([facility])- Primary Dyslipidemia Other and unspecified hyperlipidemia Essential hypertension Unspecified essential hypertension [facility] Bilateral carotid artery stenosis- Primary Occlusion and stenosis of carotid artery without mention of cerebral infarction PAD (peripheral artery disease) ([facility]) Unspecified peripheral vascular disease History of carotid endarterectomy Other postprocedural status Dyslipidemia Other and unspecified hyperlipidemia Claudication of lower extremity ([facility]) Neurogenic claudication- Primary Spinal stenosis of lumbar region PAD (peripheral artery disease) ([facility]) Unspecified peripheral vascular disease Claudication of lower extremity ([facility]) Bilateral carotid artery stenosis Occlusion and stenosis of carotid artery without mention of cerebral infarction History of carotid endarterectomy Other postprocedural status Occlusion and stenosis of right carotid artery Dyslipidemia Other and unspecified hyperlipidemia Fall, initial encounter- Primary Alcoholic intoxication with complication ([facility]) EtOH dependence ([facility]) Hyperkalemia Hyperpotassemia Acute renal failure superimposed on stage 4 chronic kidney disease, unspecified acute renal failure type ([facility]) Acute UTI Urinary tract infection, site not specified Closed displaced intertrochanteric fracture of right femur with routine healing, subsequent encounter Type 2 diabetes mellitus with stage 3b chronic kidney disease, with long-term current use of insulin (HCC) Bilateral hip pain Pain in joint, pelvic region and thigh PVD (peripheral vascular disease) ([facility]) Unspecified peripheral vascular disease PAD (peripheral artery disease) ([facility]) Unspecified peripheral vascular disease Chronic obstructive pulmonary disease, unspecified COPD type ([facility]) Alcohol dependence with unspecified alcohol-induced disorder ([facility]) History of cerebrovascular accident Transient ischemic attack (TIA), and cerebral infarction without residual deficits History of fall Personal history of fall Acute renal failure superimposed on chronic kidney disease, unspecified CKD stage, unspecified acute renal failure type Hyperkalemia Hyperpotassemia Acute UTI Urinary tract infection, site not specified H/O: CVA (cerebrovascular accident) Metabolic encephalopathy Neck pain Cervicalgia PAD (peripheral artery disease) ([facility]) Unspecified peripheral vascular disease PVD (peripheral vascular disease) ([facility]) Unspecified peripheral vascular disease Type 2 diabetes mellitus with stage 3b chronic kidney disease, with long-term current use of insulin ([facility]) Essential hypertension Unspecified essential hypertension ELBA (acute kidney injury) ([facility]) Closed displaced intertrochanteric fracture of right femur with routine healing, subsequent encounter ELBA (acute kidney injury) ([facility]) Urinary tract infection associated with indwelling urethral catheter ([facility]) Urinary retention Unspecified retention of urine COPD exacerbation ([facility])- Primary Obstructive chronic bronchitis with exacerbation Acute exacerbation of chronic obstructive pulmonary disease (COPD) ([facility]) Obstructive chronic bronchitis with exacerbation Chronic kidney disease, unspecified CKD stage Fall Unspecified fall Rib pain on left side Acute hypoxemic respiratory failure ([facility]) Stage 3b chronic kidney disease ([facility]) Type 2 diabetes mellitus with stage 3b chronic kidney disease, with long-term current use of insulin ([facility]) PVD (peripheral vascular disease) ([facility]) Unspecified peripheral vascular disease Neurogenic claudication Spinal stenosis of lumbar region Dyslipidemia Other and unspecified hyperlipidemia Anemia due to stage 3a chronic kidney disease ([facility]) Essential hypertension Unspecified essential hypertension Essential tremor Chest pain, unspecified type- Primary History of CVA (cerebrovascular accident) Transient ischemic attack (TIA), and cerebral infarction without residual deficits Essential hypertension Unspecified essential hypertension PVD (peripheral vascular disease) ([facility]) Unspecified peripheral vascular disease documented in this encounter [facility] note* Diagnosis Bilateral carotid artery stenosis- Primary Occlusion and stenosis of carotid artery without mention of cerebral infarction PAD (peripheral artery disease) ([facility]) Unspecified peripheral vascular disease History of carotid endarterectomy Other postprocedural status Dyslipidemia Other and unspecified hyperlipidemia Claudication of lower extremity ([facility]) Neurogenic claudication- Primary Spinal stenosis of lumbar region PAD (peripheral artery disease) ([facility]) Unspecified peripheral vascular disease Claudication of lower extremity ([facility]) Bilateral carotid artery stenosis Occlusion and stenosis of carotid artery without mention of cerebral infarction History of carotid endarterectomy Other postprocedural status Occlusion and stenosis of right carotid artery Dyslipidemia Other and unspecified hyperlipidemia Fall, initial encounter- Primary Alcoholic intoxication with complication ([facility]) EtOH dependence ([facility]) Hyperkalemia Hyperpotassemia Acute renal failure superimposed on stage 4 chronic kidney disease, unspecified acute renal failure type ([facility]) Acute UTI Urinary tract infection, site not specified Closed displaced intertrochanteric fracture of right femur with routine healing, subsequent encounter Type 2 diabetes mellitus with stage 3b chronic kidney disease, with long-term current use of insulin ([facility]) Bilateral hip pain Pain in joint, pelvic region and thigh PVD (peripheral vascular disease) ([facility]) Unspecified peripheral vascular disease PAD (peripheral artery disease) ([facility]) Unspecified peripheral vascular disease Chronic obstructive pulmonary disease, unspecified COPD type ([facility]) Alcohol dependence with unspecified alcohol-induced disorder ([facility]) History of cerebrovascular accident Transient ischemic attack (TIA), and cerebral infarction without residual deficits History of fall Personal history of fall Acute renal failure superimposed on chronic kidney disease, unspecified CKD stage, unspecified acute renal failure type Hyperkalemia Hyperpotassemia Acute UTI Urinary tract infection, site not specified H/O: CVA (cerebrovascular accident) Metabolic encephalopathy Neck pain Cervicalgia PAD (peripheral artery disease) ([facility]) Unspecified peripheral vascular disease PVD (peripheral vascular disease) ([facility]) Unspecified peripheral vascular disease Type 2 diabetes mellitus with stage 3b chronic kidney disease, with long-term current use of insulin ([facility]) Essential hypertension Unspecified essential hypertension ELBA (acute kidney injury) ([facility]) Closed displaced intertrochanteric fracture of right femur with routine healing, subsequent encounter ELBA (acute kidney injury) ([facility]) Urinary tract infection associated with indwelling urethral catheter ([facility]) Urinary retention Unspecified retention of urine COPD exacerbation ([facility])- Primary Obstructive chronic bronchitis with exacerbation Acute exacerbation of chronic obstructive pulmonary disease (COPD) ([facility]) Obstructive chronic bronchitis with exacerbation Chronic kidney disease, unspecified CKD stage Fall Unspecified fall Rib pain on left side Acute hypoxemic respiratory failure ([facility]) Stage 3b chronic kidney disease ([facility]) Type 2 diabetes mellitus with stage 3b chronic kidney disease, with long-term current use of insulin ([facility]) PVD (peripheral vascular disease) ([facility]) Unspecified peripheral vascular disease Neurogenic claudication Spinal stenosis of lumbar region Dyslipidemia Other and unspecified hyperlipidemia Anemia due to stage 3a chronic kidney disease ([facility]) Essential hypertension Unspecified essential hypertension Essential tremor Chest pain, unspecified type- Primary History of CVA (cerebrovascular accident) Transient ischemic attack (TIA), and cerebral infarction without residual deficits Essential hypertension Unspecified essential hypertension PVD (peripheral vascular disease) ([facility]) Unspecified peripheral vascular disease Type 2 diabetes mellitus with stage 3b chronic kidney disease, with long-term current use of insulin ([facility])- Primary documented in this encounter [facility] note* Diagnosis Bilateral carotid artery stenosis- Primary Occlusion and stenosis of carotid artery without mention of cerebral infarction PAD (peripheral artery disease) ([facility]) Unspecified peripheral vascular disease History of carotid endarterectomy Other postprocedural status Dyslipidemia Other and unspecified hyperlipidemia Claudication of lower extremity ([facility]) Neurogenic claudication- Primary Spinal stenosis of lumbar region PAD (peripheral artery disease) ([facility]) Unspecified peripheral vascular disease Claudication of lower extremity ([facility]) Bilateral carotid artery stenosis Occlusion and stenosis of carotid artery without mention of cerebral infarction History of carotid endarterectomy Other postprocedural status Occlusion and stenosis of right carotid artery Dyslipidemia Other and unspecified hyperlipidemia Fall, initial encounter- Primary Alcoholic intoxication with complication ([facility]) EtOH dependence ([facility]) Hyperkalemia Hyperpotassemia Acute renal failure superimposed on stage 4 chronic kidney disease, unspecified acute renal failure type ([facility]) Acute UTI Urinary tract infection, site not specified Closed displaced intertrochanteric fracture of right femur with routine healing, subsequent encounter Type 2 diabetes mellitus with stage 3b chronic kidney disease, with long-term current use of insulin ([facility]) Bilateral hip pain Pain in joint, pelvic region and thigh PVD (peripheral vascular disease) ([facility]) Unspecified peripheral vascular disease PAD (peripheral artery disease) ([facility]) Unspecified peripheral vascular disease Chronic obstructive pulmonary disease, unspecified COPD type ([facility]) Alcohol dependence with unspecified alcohol-induced disorder ([facility]) History of cerebrovascular accident Transient ischemic attack (TIA), and cerebral infarction without residual deficits History of fall Personal history of fall Acute renal failure superimposed on chronic kidney disease, unspecified CKD stage, unspecified acute renal failure type Hyperkalemia Hyperpotassemia Acute UTI Urinary tract infection, site not specified H/O: CVA (cerebrovascular accident) Metabolic encephalopathy Neck pain Cervicalgia PAD (peripheral artery disease) ([facility]) Unspecified peripheral vascular disease PVD (peripheral vascular disease) ([facility]) Unspecified peripheral vascular disease Type 2 diabetes mellitus with stage 3b chronic kidney disease, with long-term current use of insulin ([facility]) Essential hypertension Unspecified essential hypertension ELBA (acute kidney injury) ([facility]) Closed displaced intertrochanteric fracture of right femur with routine healing, subsequent encounter ELBA (acute kidney injury) ([facility]) Urinary tract infection associated with indwelling urethral catheter ([facility]) Urinary retention Unspecified retention of urine COPD exacerbation ([facility])- Primary Obstructive chronic bronchitis with exacerbation Acute exacerbation of chronic obstructive pulmonary disease (COPD) ([facility]) Obstructive chronic bronchitis with exacerbation Chronic kidney disease, unspecified CKD stage Fall Unspecified fall Rib pain on left side Acute hypoxemic respiratory failure ([facility]) Stage 3b chronic kidney disease ([facility]) Type 2 diabetes mellitus with stage 3b chronic kidney disease, with long-term current use of insulin ([facility]) PVD (peripheral vascular disease) ([facility]) Unspecified peripheral vascular disease Neurogenic claudication Spinal stenosis of lumbar region Dyslipidemia Other and unspecified hyperlipidemia Anemia due to stage 3a chronic kidney disease ([facility]) Essential hypertension Unspecified essential hypertension Essential tremor Chest pain, unspecified type- Primary History of CVA (cerebrovascular accident) Transient ischemic attack (TIA), and cerebral infarction without residual deficits Essential hypertension Unspecified essential hypertension PVD (peripheral vascular disease) ([facility]) Unspecified peripheral vascular disease Onychodystrophy- Primary Other specified disease of nail Onychomycosis Dermatophytosis of nail PVD (peripheral vascular disease) ([facility]) Unspecified peripheral vascular disease Tobacco use Diabetic foot ([facility]) Type II or unspecified type diabetes mellitus with other specified manifestations, not stated as uncontrolled Xerosis of skin documented in this encounter [facility]* Diagnosis Bilateral carotid artery stenosis- Primary Occlusion and stenosis of carotid artery without mention of cerebral infarction PAD (peripheral artery disease) ([facility]) Unspecified peripheral vascular disease History of carotid endarterectomy Other postprocedural status Dyslipidemia Other and unspecified hyperlipidemia Claudication of lower extremity ([facility]) Neurogenic claudication- Primary Spinal stenosis of lumbar region PAD (peripheral artery disease) ([facility]) Unspecified peripheral vascular disease Claudication of lower extremity ([facility]) Bilateral carotid artery stenosis Occlusion and stenosis of carotid artery without mention of cerebral infarction History of carotid endarterectomy Other postprocedural status Occlusion and stenosis of right carotid artery Dyslipidemia Other and unspecified hyperlipidemia Fall, initial encounter- Primary Alcoholic intoxication with complication ([facility]) EtOH dependence ([facility]) Hyperkalemia Hyperpotassemia Acute renal failure superimposed on stage 4 chronic kidney disease, unspecified acute renal failure type ([facility]) Acute UTI Urinary tract infection, site not specified Closed displaced intertrochanteric fracture of right femur with routine healing, subsequent encounter Type 2 diabetes mellitus with stage 3b chronic kidney disease, with long-term current use of insulin ([facility]) Bilateral hip pain Pain in joint, pelvic region and thigh PVD (peripheral vascular disease) ([facility]) Unspecified peripheral vascular disease PAD (peripheral artery disease) ([facility]) Unspecified peripheral vascular disease Chronic obstructive pulmonary disease, unspecified COPD type ([facility]) Alcohol dependence with unspecified alcohol-induced disorder ([facility]) History of cerebrovascular accident Transient ischemic attack (TIA), and cerebral infarction without residual deficits History of fall Personal history of fall Acute renal failure superimposed on chronic kidney disease, unspecified CKD stage, unspecified acute renal failure type Hyperkalemia Hyperpotassemia Acute UTI Urinary tract infection, site not specified H/O: CVA (cerebrovascular accident) Metabolic encephalopathy Neck pain Cervicalgia PAD (peripheral artery disease) ([facility]) Unspecified peripheral vascular disease PVD (peripheral vascular disease) ([facility]) Unspecified peripheral vascular disease Type 2 diabetes mellitus with stage 3b chronic kidney disease, with long-term current use of insulin ([facility]) Essential hypertension Unspecified essential hypertension ELBA (acute kidney injury) ([facility]) Closed displaced intertrochanteric fracture of right femur with routine healing, subsequent encounter ELBA (acute kidney injury) ([facility]) Urinary tract infection associated with indwelling urethral catheter ([facility]) Urinary retention Unspecified retention of urine COPD exacerbation ([facility])- Primary Obstructive chronic bronchitis with exacerbation Acute exacerbation of chronic obstructive pulmonary disease (COPD) ([facility]) Obstructive chronic bronchitis with exacerbation Chronic kidney disease, unspecified CKD stage Fall Unspecified fall Rib pain on left side Acute hypoxemic respiratory failure ([facility]) Stage 3b chronic kidney disease ([facility]) Type 2 diabetes mellitus with stage 3b chronic kidney disease, with long-term current use of insulin ([facility]) PVD (peripheral vascular disease) ([facility]) Unspecified peripheral vascular disease Neurogenic claudication Spinal stenosis of lumbar region Dyslipidemia Other and unspecified hyperlipidemia Anemia due to stage 3a chronic kidney disease ([facility]) Essential hypertension Unspecified essential hypertension Essential tremor Chest pain, unspecified type- Primary History of CVA (cerebrovascular accident) Transient ischemic attack (TIA), and cerebral infarction without residual deficits Essential hypertension Unspecified essential hypertension PVD (peripheral vascular disease) ([facility]) Unspecified peripheral vascular disease History of carotid endarterectomy- Primary Other postprocedural status Stenosis of left carotid artery Occlusion and stenosis of carotid artery without mention of cerebral infarction Neurogenic claudication Spinal stenosis of lumbar region PAD (peripheral artery disease) ([facility]) Unspecified peripheral vascular disease Type 2 diabetes mellitus with stage 3b chronic kidney disease, with long-term current use of insulin ([facility]) Tobacco use documented in this encounter [facility] note* Diagnosis Bilateral carotid artery stenosis- Primary Occlusion and stenosis of carotid artery without mention of cerebral infarction PAD (peripheral artery disease) ([facility]) Unspecified peripheral vascular disease History of carotid endarterectomy Other postprocedural status Dyslipidemia Other and unspecified hyperlipidemia Claudication of lower extremity ([facility]) Neurogenic claudication- Primary Spinal stenosis of lumbar region PAD (peripheral artery disease) ([facility]) Unspecified peripheral vascular disease Claudication of lower extremity ([facility]) Bilateral carotid artery stenosis Occlusion and stenosis of carotid artery without mention of cerebral infarction History of carotid endarterectomy Other postprocedural status Occlusion and stenosis of right carotid artery Dyslipidemia Other and unspecified hyperlipidemia Fall, initial encounter- Primary Alcoholic intoxication with complication ([facility]) EtOH dependence ([facility]) Hyperkalemia Hyperpotassemia Acute renal failure superimposed on stage 4 chronic kidney disease, unspecified acute renal failure type ([facility]) Acute UTI Urinary tract infection, site not specified Closed displaced intertrochanteric fracture of right femur with routine healing, subsequent encounter Type 2 diabetes mellitus with stage 3b chronic kidney disease, with long-term current use of insulin ([facility]) Bilateral hip pain Pain in joint, pelvic region and thigh PVD (peripheral vascular disease) ([facility]) Unspecified peripheral vascular disease PAD (peripheral artery disease) ([facility]) Unspecified peripheral vascular disease Chronic obstructive pulmonary disease, unspecified COPD type ([facility]) Alcohol dependence with unspecified alcohol-induced disorder ([facility]) History of cerebrovascular accident Transient ischemic attack (TIA), and cerebral infarction without residual deficits History of fall Personal history of fall Acute renal failure superimposed on chronic kidney disease, unspecified CKD stage, unspecified acute renal failure type Hyperkalemia Hyperpotassemia Acute UTI Urinary tract infection, site not specified H/O: CVA (cerebrovascular accident) Metabolic encephalopathy Neck pain Cervicalgia PAD (peripheral artery disease) ([facility]) Unspecified peripheral vascular disease PVD (peripheral vascular disease) ([facility]) Unspecified peripheral vascular disease Type 2 diabetes mellitus with stage 3b chronic kidney disease, with long-term current use of insulin ([facility]) Essential hypertension Unspecified essential hypertension ELBA (acute kidney injury) ([facility]) Closed displaced intertrochanteric fracture of right femur with routine healing, subsequent encounter ELBA (acute kidney injury) ([facility]) Urinary tract infection associated with indwelling urethral catheter (HCC) Urinary retention Unspecified retention of urine COPD exacerbation (HCC)- Primary Obstructive chronic bronchitis with exacerbation Acute exacerbation of chronic obstructive pulmonary disease (COPD) (HCC) Obstructive chronic bronchitis with exacerbation Chronic kidney disease, unspecified CKD stage Fall Unspecified fall Rib pain on left side Acute hypoxemic respiratory failure (HCC) Stage 3b chronic kidney disease (HCC) Type 2 diabetes mellitus with stage 3b chronic kidney disease, with long-term current use of insulin (HCC) PVD (peripheral vascular disease) (HCC) Unspecified peripheral vascular disease Neurogenic claudication Spinal stenosis of lumbar region Dyslipidemia Other and unspecified hyperlipidemia Anemia due to stage 3a chronic kidney disease (HCC) Essential hypertension Unspecified essential hypertension Essential tremor Chest pain, unspecified type- Primary History of CVA (cerebrovascular accident) Transient ischemic attack (TIA), and cerebral infarction without residual deficits Essential hypertension Unspecified essential hypertension PVD (peripheral vascular disease) (HCC) Unspecified peripheral vascular disease Type 2 diabetes mellitus with stage 3b chronic kidney disease, with long-term current use of insulin (HCC) [facility] Diagnosis Rib pain- Primary Unspecified chest pain Stenosis of left carotid artery Occlusion and stenosis of carotid artery without mention of cerebral infarction Hyperlipidemia, unspecified hyperlipidemia type Gastro-esophageal reflux disease without esophagitis Superficial gastritis without hemorrhage, unspecified chronicity Pulmonary emphysema, unspecified emphysema type ([facility]) CRF (chronic renal failure), stage 3 (moderate) ([facility]) Hypertension associated with type 2 diabetes mellitus (Multi) Type 2 diabetes mellitus without complication, with long-term current use of insulin ([facility]) Other fatigue Screening for prostate cancer Special screening for malignant neoplasm of prostate Vascular myelopathies Depression, major, in remission (CMS-HCC) Chronic stable angina (CMS-HCC) Chronic shortness of breath Hepatic steatosis Other chronic nonalcoholic liver disease H/O fall Abdominal pain, LUQ Abdominal pain, RUQ Hypertension associated with type 2 diabetes mellitus (Multi)- Primary Type 2 diabetes mellitus with other circulatory complication, with long-term current use of insulin Gait difficulty Abnormality of gait Muscle weakness of lower extremity Muscle weakness (generalized) Recurrent falls Centrilobular emphysema ([facility]) Screening for prostate cancer Special screening for malignant neoplasm of prostate Hypertriglyceridemia Pure hyperglyceridemia Anemia, unspecified type Non-pressure chronic ulcer of other part of right foot with fat layer exposed Vascular myelopathies Depression, major, in remission (CMS-HCC) Thoracic aortic aneurysm without rupture, unspecified part ([facility]) Stage 3b chronic kidney disease ([facility]) Stable angina pectoris ([facility]) Calculus of gallbladder without cholecystitis without obstruction Routine general medical examination at health care facility- Primary Routine general medical examination at a health care facility Superficial gastritis without hemorrhage, unspecified chronicity Weakness of upper extremity Weakness of both lower extremities Recurrent falls Neck pain Cervicalgia H/O: CVA (cerebrovascular accident) Essential tremor Neurogenic claudication Spinal stenosis of lumbar region Stable angina pectoris ([facility]) Hypertension associated with type 2 diabetes mellitus (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) Hypotensive episode Thrombocytopenia ([facility])- Primary Unspecified thrombocytopenia Chronic obstructive pulmonary disease, unspecified Megaloblastic anemia Unspecified deficiency anemia Folate deficiency Other B-complex deficiencies Fatigue, unspecified type CRF (chronic renal failure), stage 3 (moderate) ([facility]) Type 2 diabetes mellitus with hyperglycemia, with long-term current use of insulin documented in this encounter [facility] Work Phone: Evaluation note* Diagnosis Bilateral carotid artery stenosis- Primary Occlusion and stenosis of carotid artery without mention of cerebral infarction PAD (peripheral artery disease) ([facility]) Unspecified peripheral vascular disease History of carotid endarterectomy Other postprocedural status Dyslipidemia Other and unspecified hyperlipidemia Claudication of lower extremity ([facility]) Neurogenic claudication- Primary Spinal stenosis of lumbar region PAD (peripheral artery disease) ([facility]) Unspecified peripheral vascular disease Claudication of lower extremity ([facility]) Bilateral carotid artery stenosis Occlusion and stenosis of carotid artery without mention of cerebral infarction History of carotid endarterectomy Other postprocedural status Occlusion and stenosis of right carotid artery Dyslipidemia Other and unspecified hyperlipidemia Fall, initial encounter- Primary Alcoholic intoxication with complication ([facility]) EtOH dependence ([facility]) Hyperkalemia Hyperpotassemia Acute renal failure superimposed on stage 4 chronic kidney disease, unspecified acute renal failure type ([facility]) Acute UTI Urinary tract infection, site not specified Closed displaced intertrochanteric fracture of right femur with routine healing, subsequent encounter Type 2 diabetes mellitus with stage 3b chronic kidney disease, with long-term current use of insulin ([facility]) Bilateral hip pain Pain in joint, pelvic region and thigh PVD (peripheral vascular disease) Unspecified peripheral vascular disease PAD (peripheral artery disease) ([facility]) Unspecified peripheral vascular disease Chronic obstructive pulmonary disease, unspecified COPD type (HCC) Alcohol dependence with unspecified alcohol-induced disorder (HCC) History of cerebrovascular accident Transient ischemic attack (TIA), and cerebral infarction without residual deficits History of fall Personal history of fall Acute renal failure superimposed on chronic kidney disease, unspecified CKD stage, unspecified acute renal failure type Hyperkalemia Hyperpotassemia Acute UTI Urinary tract infection, site not specified H/O: CVA (cerebrovascular accident) Metabolic encephalopathy Neck pain Cervicalgia PAD (peripheral artery disease) (HCC) Unspecified peripheral vascular disease PVD (peripheral vascular disease) Unspecified peripheral vascular disease Type 2 diabetes mellitus with stage 3b chronic kidney disease, with long-term current use of insulin (HCC) Essential hypertension Unspecified essential hypertension ELBA (acute kidney injury) Closed displaced intertrochanteric fracture of right femur with routine healing, subsequent encounter ELBA (acute kidney injury) Urinary tract infection associated with indwelling urethral catheter ([facility]) Urinary retention Unspecified retention of urine COPD exacerbation ([facility])- Primary Obstructive chronic bronchitis with exacerbation Acute exacerbation of chronic obstructive pulmonary disease (COPD) (HCC) Obstructive chronic bronchitis with exacerbation Chronic kidney disease, unspecified CKD stage Fall Unspecified fall Rib pain on left side Acute hypoxemic respiratory failure (HCC) Stage 3b chronic kidney disease (HCC) Type 2 diabetes mellitus with stage 3b chronic kidney disease, with long-term current use of insulin (HCC) PVD (peripheral vascular disease) Unspecified peripheral vascular disease Neurogenic claudication Spinal stenosis of lumbar region Dyslipidemia Other and unspecified hyperlipidemia Anemia due to stage 3a chronic kidney disease (HCC) Essential hypertension Unspecified essential hypertension Essential tremor Chest pain, unspecified type- Primary History of CVA (cerebrovascular accident) Transient ischemic attack (TIA), and cerebral infarction without residual deficits Essential hypertension Unspecified essential hypertension PVD (peripheral vascular disease) Unspecified peripheral vascular disease Type 2 diabetes mellitus with stage 3b chronic kidney disease, with long-term current use of insulin (HCC)- Primary documented in this encounter [facility] note* Diagnosis Rib pain- Primary Unspecified chest pain Stenosis of left carotid artery Occlusion and stenosis of carotid artery without mention of cerebral infarction Hyperlipidemia, unspecified hyperlipidemia type Gastro-esophageal reflux disease without esophagitis Superficial gastritis without hemorrhage, unspecified chronicity Pulmonary emphysema, unspecified emphysema type ([facility]) CRF (chronic renal failure), stage 3 (moderate) ([facility]) Hypertension associated with type 2 diabetes mellitus ([facility]) Type 2 diabetes mellitus without complication, with long-term current use of insulin ([facility]) Other fatigue Screening for prostate cancer Special screening for malignant neoplasm of prostate Vascular myelopathies Depression, major, in remission ([facility]) Chronic stable angina ([facility]) Chronic shortness of breath Hepatic steatosis Other chronic nonalcoholic liver disease H/O fall Abdominal pain, LUQ Abdominal pain, RUQ Hypertension associated with type 2 diabetes mellitus ([facility])- Primary Type 2 diabetes mellitus with other circulatory complication, with long-term current use of insulin Gait difficulty Abnormality of gait Muscle weakness of lower extremity Muscle weakness (generalized) Recurrent falls Centrilobular emphysema ([facility]) Screening for prostate cancer Special screening for malignant neoplasm of prostate Hypertriglyceridemia Pure hyperglyceridemia Anemia, unspecified type Non-pressure chronic ulcer of other part of right foot with fat layer exposed Vascular myelopathies Depression, major, in remission ([facility]) Thoracic aortic aneurysm without rupture, unspecified part ([facility]) Stage 3b chronic kidney disease ([facility]) Stable angina pectoris ([facility]) Calculus of gallbladder without cholecystitis without obstruction Routine general medical examination at health care facility- Primary Routine general medical examination at a health care facility Superficial gastritis without hemorrhage, unspecified chronicity Weakness of upper extremity Weakness of both lower extremities Recurrent falls Neck pain Cervicalgia H/O: CVA (cerebrovascular accident) Essential tremor Neurogenic claudication Spinal stenosis of lumbar region Stable angina pectoris ([facility]) Hypertension associated with type 2 diabetes mellitus (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) Hypotensive episode Routine general medical examination at health care facility- Primary Routine general medical examination at a health care facility Chronic obstructive pulmonary disease, unspecified COPD type ([facility]) Essential tremor Type 2 diabetes mellitus with hyperglycemia, with long-term current use of insulin Hypertension associated with type 2 diabetes mellitus ([facility]) Mixed hyperlipidemia Thrombocytopenia ([facility]) Unspecified thrombocytopenia Folate deficiency Other B-complex deficiencies CRF (chronic renal failure), stage 3 (moderate) ([facility]) Chronic fatigue Other malaise and fatigue Anemia, unspecified type Weakness of both arms Other musculoskeletal symptoms referable to limbs Weakness of both legs Muscle weakness (generalized) Smoker Tobacco use disorder documented in this encounter [facility] Work Phone: Evaluation note* Diagnosis Bilateral carotid artery stenosis- Primary Occlusion and stenosis of carotid artery without mention of cerebral infarction PAD (peripheral artery disease) (HCC) Unspecified peripheral vascular disease History of carotid endarterectomy Other postprocedural status Dyslipidemia Other and unspecified hyperlipidemia Claudication of lower extremity ([facility]) Neurogenic claudication- Primary Spinal stenosis of lumbar region PAD (peripheral artery disease) ([facility]) Unspecified peripheral vascular disease Claudication of lower extremity ([facility]) Bilateral carotid artery stenosis Occlusion and stenosis of carotid artery without mention of cerebral infarction History of carotid endarterectomy Other postprocedural status Occlusion and stenosis of right carotid artery Dyslipidemia Other and unspecified hyperlipidemia Fall, initial encounter- Primary Alcoholic intoxication with complication ([facility]) EtOH dependence ([facility]) Hyperkalemia Hyperpotassemia Acute renal failure superimposed on stage 4 chronic kidney disease, unspecified acute renal failure type ([facility]) Acute UTI Urinary tract infection, site not specified Closed displaced intertrochanteric fracture of right femur with routine healing, subsequent encounter Type 2 diabetes mellitus with stage 3b chronic kidney disease, with long-term current use of insulin ([facility]) Bilateral hip pain Pain in joint, pelvic region and thigh PVD (peripheral vascular disease) Unspecified peripheral vascular disease PAD (peripheral artery disease) ([facility]) Unspecified peripheral vascular disease Chronic obstructive pulmonary disease, unspecified COPD type ([facility]) Alcohol dependence with unspecified alcohol-induced disorder ([facility]) History of cerebrovascular accident Transient ischemic attack (TIA), and cerebral infarction without residual deficits History of fall Personal history of fall Acute renal failure superimposed on chronic kidney disease, unspecified CKD stage, unspecified acute renal failure type Hyperkalemia Hyperpotassemia Acute UTI Urinary tract infection, site not specified H/O: CVA (cerebrovascular accident) Metabolic encephalopathy Neck pain Cervicalgia PAD (peripheral artery disease) ([facility]) Unspecified peripheral vascular disease PVD (peripheral vascular disease) Unspecified peripheral vascular disease Type 2 diabetes mellitus with stage 3b chronic kidney disease, with long-term current use of insulin ([facility]) Essential hypertension Unspecified essential hypertension ELBA (acute kidney injury) Closed displaced intertrochanteric fracture of right femur with routine healing, subsequent encounter ELBA (acute kidney injury) Urinary tract infection associated with indwelling urethral catheter ([facility]) Urinary retention Unspecified retention of urine COPD exacerbation ([facility])- Primary Obstructive chronic bronchitis with exacerbation Acute exacerbation of chronic obstructive pulmonary disease (COPD) ([facility]) Obstructive chronic bronchitis with exacerbation Chronic kidney disease, unspecified CKD stage Fall Unspecified fall Rib pain on left side Acute hypoxemic respiratory failure ([facility] [facility] Stage 3b chronic kidney disease ([facility]) Type 2 diabetes mellitus with stage 3b chronic kidney disease, with long-term current use of insulin (HCC) PVD (peripheral vascular disease) Unspecified peripheral vascular disease Neurogenic claudication Spinal stenosis of lumbar region Dyslipidemia Other and unspecified hyperlipidemia Anemia due to stage 3a chronic kidney disease (HCC) Essential hypertension Unspecified essential hypertension Essential tremor Chest pain, unspecified type- Primary History of CVA (cerebrovascular accident) Transient ischemic attack (TIA), and cerebral infarction without residual deficits Essential hypertension Unspecified essential hypertension PVD (peripheral vascular disease) Unspecified peripheral vascular disease Type 2 diabetes mellitus with stage 3b chronic kidney disease, with long-term current use of insulin (HCC)- Primary [facility]* Diagnosis Rib pain- Primary Unspecified chest pain Stenosis of left carotid artery Occlusion and stenosis of carotid artery without mention of cerebral infarction Hyperlipidemia, unspecified hyperlipidemia type Gastro-esophageal reflux disease without esophagitis Superficial gastritis without hemorrhage, unspecified chronicity Pulmonary emphysema, unspecified emphysema type (Multi) CRF (chronic renal failure), stage 3 (moderate) (Multi) Hypertension associated with type 2 diabetes mellitus (Multi) Type 2 diabetes mellitus without complication, with long-term current use of insulin (Multi) Other fatigue Screening for prostate cancer Special screening for malignant neoplasm of prostate Vascular myelopathies Depression, major, in remission ([facility]) Chronic stable angina ([facility]) Chronic shortness of breath Hepatic steatosis Other chronic nonalcoholic liver disease H/O fall Abdominal pain, LUQ Abdominal pain, RUQ Hypertension associated with type 2 diabetes mellitus (Multi)- Primary Type 2 diabetes mellitus with other circulatory complication, with long-term current use of insulin Gait difficulty Abnormality of gait Muscle weakness of lower extremity Muscle weakness (generalized) Recurrent falls Centrilobular emphysema (Multi) Screening for prostate cancer Special screening for malignant neoplasm of prostate Hypertriglyceridemia Pure hyperglyceridemia Anemia, unspecified type Non-pressure chronic ulcer of other part of right foot with fat layer exposed Vascular myelopathies Depression, major, in remission ([facility]) Thoracic aortic aneurysm without rupture, unspecified part ([facility] Stage 3b chronic kidney disease (Multi) Stable angina pectoris ([facility]) Calculus of gallbladder without cholecystitis without obstruction Routine general medical examination at health care facility- Primary Routine general medical examination at a health care facility Chronic obstructive pulmonary disease, unspecified COPD type (Multi) Essential tremor Type 2 diabetes mellitus with hyperglycemia, with long-term current use of insulin Hypertension associated with type 2 diabetes mellitus (Multi) Mixed hyperlipidemia Thrombocytopenia ([facility]) Unspecified thrombocytopenia Folate deficiency Other B-complex deficiencies CRF (chronic renal failure), stage 3 (moderate) (Multi) Chronic fatigue Other malaise and fatigue Anemia, unspecified type Weakness of both arms Other musculoskeletal symptoms referable to limbs Weakness of both legs Muscle weakness (generalized) Smoker Tobacco use disorder Alcohol dependence, in remission Vascular myelopathies Stage 3b chronic kidney disease (Multi) Fatigue, unspecified type- Primary Chronic obstructive pulmonary disease, unspecified COPD type (Multi) Healthcare maintenance Smoker Tobacco use disorder Type 2 diabetes mellitus with hyperglycemia, with long-term current use of insulin Mixed hyperlipidemia Anemia, unspecified type Prostate cancer screening Special screening for malignant neoplasm of prostate High serum folic acid level CRF (chronic renal failure), stage 3 (moderate) (Multi) Need for influenza vaccination Need for prophylactic vaccination and inoculation against influenza Centrilobular emphysema (Multi) documented in this encounter [facility] Work Phone: Evaluation note* Diagnosis Bilateral carotid artery stenosis- Primary Occlusion and stenosis of carotid artery without mention of cerebral infarction PAD (peripheral artery disease) (HCC) Unspecified peripheral vascular disease History of carotid endarterectomy Other postprocedural status Dyslipidemia Other and unspecified hyperlipidemia Claudication of lower extremity (HCC) Neurogenic claudication- Primary Spinal stenosis of lumbar region PAD (peripheral artery disease) (HCC) Unspecified peripheral vascular disease Claudication of lower extremity (HCC) Bilateral carotid artery stenosis Occlusion and stenosis of carotid artery without mention of cerebral infarction History of carotid endarterectomy Other postprocedural status Occlusion and stenosis of right carotid artery Dyslipidemia Other and unspecified hyperlipidemia Fall, initial encounter- Primary Alcoholic intoxication with complication (HCC) EtOH dependence (HCC) Hyperkalemia Hyperpotassemia Acute renal failure superimposed on stage 4 chronic kidney disease, unspecified acute renal failure type (HCC) Acute UTI Urinary tract infection, site not specified Closed displaced intertrochanteric fracture of right femur with routine healing, subsequent encounter Type 2 diabetes mellitus with stage 3b chronic kidney disease, with long-term current use of insulin (HCC) Bilateral hip pain Pain in joint, pelvic region and thigh PVD (peripheral vascular disease) Unspecified peripheral vascular disease PAD (peripheral artery disease) (HCC) Unspecified peripheral vascular disease Chronic obstructive pulmonary disease, unspecified COPD type (HCC) Alcohol dependence with unspecified alcohol-induced disorder (HCC) History of cerebrovascular accident Transient ischemic attack (TIA), and cerebral infarction without residual deficits History of fall Personal history of fall Acute renal failure superimposed on chronic kidney disease, unspecified CKD stage, unspecified acute renal failure type Hyperkalemia Hyperpotassemia Acute UTI Urinary tract infection, site not specified H/O: CVA (cerebrovascular accident) Metabolic encephalopathy Neck pain Cervicalgia PAD (peripheral artery disease) (HCC) Unspecified peripheral vascular disease PVD (peripheral vascular disease) Unspecified peripheral vascular disease Type 2 diabetes mellitus with stage 3b chronic kidney disease, with long-term current use of insulin (HCC) Essential hypertension Unspecified essential hypertension ELBA (acute kidney injury) Closed displaced intertrochanteric fracture of right femur with routine healing, subsequent encounter ELBA (acute kidney injury) Urinary tract infection associated with indwelling urethral catheter ([facility]) Urinary retention Unspecified retention of urine COPD exacerbation ([facility])- Primary Obstructive chronic bronchitis with exacerbation Acute exacerbation of chronic obstructive pulmonary disease (COPD) ([facility]) Obstructive chronic bronchitis with exacerbation Chronic kidney disease, unspecified CKD stage Fall Unspecified fall Rib pain on left side Acute hypoxemic respiratory failure ([facility]) Stage 3b chronic kidney disease (HCC) Type 2 diabetes mellitus with stage 3b chronic kidney disease, with long-term current use of insulin ([facility]) PVD (peripheral vascular disease) Unspecified peripheral vascular disease Neurogenic claudication Spinal stenosis of lumbar region Dyslipidemia Other and unspecified hyperlipidemia Anemia due to stage 3a chronic kidney disease (HCC) Essential hypertension Unspecified essential hypertension Essential tremor Chest pain, unspecified type- Primary History of CVA (cerebrovascular accident) Transient ischemic attack (TIA), and cerebral infarction without residual deficits Essential hypertension Unspecified essential hypertension PVD (peripheral vascular disease) Unspecified peripheral vascular disease Onychodystrophy- Primary Other specified disease of nail Onychomycosis Dermatophytosis of nail PVD (peripheral vascular disease) Unspecified peripheral vascular disease Diabetic foot (HCC) Type II or unspecified type diabetes mellitus with other specified manifestations, not stated as uncontrolled Xerosis of skin documented in this encounter [facility] noteNo assessment information availableWWVUMedicine [facility] Work Phone: Evaluation note* Diagnosis Onset Date Resolution Status Admit Date Closed right ankle fracture acute April 17, 2025 9:12am [place] [facility] Work Phone: History of Present illness Narrative* STEVO ELIZALDE was seen for PT initial evaluation today s/p R hip fracture and weakness of lower extremities. Patient demonstrates significant pain with active movement and functional mobility, R knee and hip ROM limited, weakness in R hip and knee with poor quad and gluteal strength, gait and balance deficits. Patient appears appropriate for continued skilled PT at 3x/week for 6 weeks to improve R knee/hip ROM, R hip/knee strength as well as core and LLE strength to improve gait and functionalmobility and reduce recurrent falls. * Clinical Presentation: Stable and/or uncomplicated characteristics. * Level of Complexity: low * Problem List: activity limitations, ADLs/IADLs/self care skills, balance, decreased functional level, decreased knowledge of HEP, fall risk, flexibility, gait/locomotion, motor function/control/tone,pain, participation restrictions, posture, range of motion/joint mobility, strength and transfers. [facility]: History of Present illness NarrativeSBA with ambulation into clinic. Weakness noted with LE strengthening. Continued STM to decrease muscular tightness. SOB following sci-fit stepper. Fair quad eccentric control with STS transfers. 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 [place] [place] [id number] [place] Work Phone: History of Present illness NarrativeCGA with added neuro re-ed. Breaks and quick fatigue noted with Ambulation with cane in clinic. Continued palpable tenderness along R glute and hip flexor. Reviewed HEP. [facility] [place] [address] [place] Work Phone: History of Present illness NarrativeWeakness noted with quad and hip strengthening. Breaks required with standing ther ex d/t fatigue and SOB. continued tightness R knee ext. Ambulated with cane through out Tx. C/o fatigue at end of Tx. [facility] [place] [address] [place] Work Phone: History of Present illness NarrativePt. arrived 12 mins late to appt. Held neuro re-ed this visit. Fair quad eccentric control with step ups and STS. Quick fatigue with standing ther ex. LOB with tandem stance. Palpable tenderness R glute and hip flexor. [facility] [address] [place] Work Phone: History of Present illness NarrativeFair tolerance to ther ex. Weakness noted with hip strengthening. Continued lacking full R knee extension AROM. Palpable tenderness along R glute and hip flexor. Increased fatigue and SOB with all ofther ex compared to previous visits. Reviewed HEP. [facility] [address] [place] Work Phone: History of Present illness NarrativeLAB F/U.. CLEAR WATERY EYES WITH ITCHY EYES X SEVERAL WEEKS , NO CHANGE IN VISION. , WORSENING CHRONIC TREMOR . HASN'T BEEN TAKING THE PRIMIDONE ( FORGET TO TAKE IT) . HAS F/U WITH ENDO FOR DM2 .[facility] Work Phone: History of Present illness Narrative* Fair tolerance to ther ex. Weakness noted with step ups requiring B UE assist. SOB and fatigue noted with standing ther ex. Continued Difficulty with ambulation sing cane with CGA. * Lorena Evangelista, PT, DPT, Cert DN updated goals this date with pt making good progress towards all stated POC goals. [facility] Work Phone: History of Present illness NarrativePt continues to have tightness with knee ext. Fair quad control wth step ups using UE assist. SBA with ambulation in clinic with cane. Improved gait pattern with cane this visit. No time for neuro re-ed this visit. Increased SOB this visit. [facility] [address] [place] Work Phone: History of Present illness NarrativeBreaks required with all standing ther ex. SOB following step ups. LOB with tandem stance. Continued tightness with L knee ext. Improved gait pattern with cane. Reviewed HEP. [facility] [address] [place] Work Phone: History of Present illness Narrative* Patient has made significant improvement in R hip AROM and strength, and has progressed towards more independent mobility. He is now using a cane for most household mobility, is able to get up and down independently without 's supervision. 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 * He would benefit from continued skilled PT, will continue with remaining 1 visit next week; then will recommend 1x/week for 4 more weeks to focus on balance and gait training to improve independence and safety with functional mobility within his home and progression to community mobility. * Response to treatment: no change in pain, improved flexibility and improved gait. * Patient was able to complete today's treatment with some difficulty. [facility] [address] [place] Work Phone: History of Present illness NarrativeLAB F/U. PT QUIT ETOH AFTER HOSPITAL AND NH DISCHARGE, BUT STARTED TO DRINK AGAIN . ITCHY EYES , OLOPATADINE EYE DROP HELPED WITH CLEAR DISCHARGE FROM EYES , BUT NOT MUCH FOR ITCHY EYES . CAN'T AFFORD TO SEE THE BOARD CERTIFIED ARTS THERAPIST SOONER THAN ONE YEAR.. HAS ROUTINE F/U WITH ENDO FOR DM2. HAD NO ANGINASINCE LAST VISIT WITH H/O ANGINA PECTORIS. PVD HAS BEEN STABLE.[facility] Work Phone: History of Present illness Narrative* The patient is being seen for the subsequent annual wellness visit. * Past Medical, Surgical and Family History: reviewed and updated in chart. * Medications and Supplements: Review of all medications by a prescribing practitioner or clinical pharmacist (such as prescriptions, OTCs, herbal therapies and supplements) documented in the medical record. * No, the patient is not using opioids. * Patient Self Assessment of Health Status: fair. * Tobacco use: User * Alcohol use: User * Illicit drug use: Non-User * Current diet: Diabetic Diet. * Exercise Frequency: the patient does not exercise. * Depression/Suicide Screening: Patient has a current diagnosis of depression. * Hearing Impairment: none. * Cognitive Impairment: No cognitive impairment observed. * Bathing: performs independently. * Dressing: performs independently. * Walking: needs assistance. * Managing Finances: needs assistance. * Shopping: dependent. * Managing Medications: needs assistance. * Housework / Basic Home Maintenance: needs assistance. * Falls Risk Screening:. STEVO has not fallen in the last 6 months. His fall did not result in injury. * Care Plan Low/Moderate Risk: Regular physical activity such as walking, water aerobics or dora chi to improve strength, balance, coordination and flexibility. Wear appropriate, sensible shoe wear. Remove fall hazards at home such as loose rugs, obstacles, use non-slip surface in bath or shower. Keep living space well lit. * Home safety risk factors: none. * LAB F/U (DONE BY HAND GRINDER ) . MEDICARE WELLNESS EXAM.. CRF , CHRONIC ANGINA , DIABETIC NEUROPATHY NEUROPATHY ,HTN AND DM2 HAVE BEEN STABLE.. STILL DRINKS ETOH ,BUT LESS FREQUENT.(PER PT). [facility] Work Phone: History of Present illness Narrative* The patient is being seen for the subsequent annual wellness visit. * Past Medical, Surgical and Family History: reviewed and updated in chart. * Medications and Supplements: Review of all medications by a prescribing practitioner or clinical pharmacist (such as prescriptions, OTCs, herbal therapies and supplements) documented in the medical record. * No, the patient is not using opioids. * Patient Self Assessment of Health Status: fair. * Tobacco use: User * Alcohol use: User * Illicit drug use: Non-User * Current diet: Diabetic Diet. * Exercise Frequency: the patient does not exercise. * Depression/Suicide Screening: Patient has a current diagnosis of depression. * Hearing Impairment: none. * Cognitive Impairment: No cognitive impairment observed. * Bathing: performs independently. * Dressing: performs independently. * Walking: needs assistance. * Managing Finances: needs assistance. * Shopping: dependent. * Managing Medications: needs assistance. * Housework / Basic Home Maintenance: needs assistance. * Falls Risk Screening:. STEVO has not fallen in the last 6 months. His fall did not result in injury. * Care Plan Low/Moderate Risk: Regular physical activity such as walking, water aerobics or dora chi to improve strength, balance, coordination and flexibility. Wear appropriate, sensible shoe wear. Remove fall hazards at home such as loose rugs, obstacles, use non-slip surface in bath or shower. Keep living space well lit. * Home safety risk factors: none. * LAB F/U (DONE BY HAND GRINDER ) . MEDICARE WELLNESS EXAM.. CRF , CHRONIC ANGINA , DIABETIC NEUROPATHY NEUROPATHY ,HTN AND DM2 HAVE BEEN STABLE.. STILL DRINKS ETOH ,BUT LESS FREQUENT.(PER PT). [facility] Work Phone: History of Present illness NarrativeF/U ON LIMB WEAKNESS . HASN'T STARTED THE PHYSICAL TX YET. 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 STILL DRINKS ETOH,BUT PER PT NOT DAILY( HAD ONE DRINK AFTER SEVERAL FEW MONTHS) .[facility] Work Phone: History of Present illness NarrativeF/U ON LIMB WEAKNESS . HASN'T STARTED THE PHYSICAL TX YET. 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 STILL DRINKS ETOH,BUT PER PT NOT DAILY( HAD ONE DRINK AFTER SEVERAL FEW MONTHS) .[facility] Work Phone: History of Present illness NarrativePatient identified by name and date of . Patient required rest breaks between sets and exercises due to fatigue. He ambulated into clinic with use of S/C with slow nilda. He verbalized good understanding of HEP with review and additional handouts. [facility]-[address] Work Phone: History of Present illness NarrativePatient identified by name and date of . Treatment time reduced secondary to patients 's request due to conflict with treatment time. Held band with marching due to increased hip flexion seated. Patient demonstrated quick fatigue but was able to progress with standing exercises this date. Reviewed with patient to decrease with muscle contraction with hip abd/add exercises to decrease with reported increase in Sx. [facility] Work Phone: History of Present illness NarrativePatient identified by name and date of . [facility]-[address] Work Phone: History of Present illness NarrativePatient identified by name and date of . Per patient request treatment time reduced this date due to conflict in schedule. Patient was able to progress with standing exercises this date with addition of reps and step ups. He required seated rest breaks due to LE fatigue. [facility] Work Phone: History of Present illness Narrative* Mr. ELIZALDE presents with signs and symptoms consistent with Generalized weakness, primarily in BLE and proximally in core musculature, as well as gait difficulty and balance impairments causing difficulty with functional transfers. He demonstrates impairments/limitations in functional activities as well as household and community distances with history of falls. Pt demonstrated good MMT of distalmusculature in BLE's but was weak in more proximal core musculature as well as ankles with decreased ankle DF with gait noted. Pt wanted to focus on referral for strength/balance and not look at cervical spine this date but may add at future date so still added to POC per referral. Pt and pt's wifenoted good understanding of all edu and pt tolerated/performed HEP well. Given green theraband due to pt noting orange was slightly too easy this date. They would benefit from skilled Physical Therapy with combination of manual therapy techniques to decrease myofascial and joint restrictions, as well as progression of exercises for ROM, flexibility, strength, core stabilization, and glute retraining, and body mechanics education throughout POC to progress towards independence with ADL s/IADL s and return to PLOF. * Clinical Presentation: Stable and/or uncomplicated characteristics. * Level of Complexity: low * Problem List: activity limitations, ADLs/IADLs/self care skills, balance, coordination, decreased functional level, fall risk, flexibility, gait/locomotion, motor function/control/tone, pain, participation restrictions, posture, range of motion/joint mobility, strength and transfers. [facility] Work Phone: Hospital Discharge instructions Additional Instructions Follow-up with orthopedics, you can take the boot off whenever you are sitting/lying down, use it for walking. Ice your ankle and knee, take Tylenol as needed for pain.[facility] Work Phone: Instructions* Name Dates Details Instructions not documented [facility] Work Phone: Instructions* Attachments The following attachments cannot be sent through Care Everywhere. * Diabetes: Foot Care ([place]i) documented in this encounterOhioHealthReason for referral (narrative)No reason for referral information availableWWVUMedicine [facility] Work Phone: Reason for visit Narrative* Initial Evaluation . muscle weakness of lower extremity M62.81, s/p R hip fracture Z87.81. * Referred by: Phyllis Mae MD [facility] Work Phone: Reason for visit NarrativeInitial Evaluation . BLE weakness and history of CVA. [facility] Work Phone: Instructions Name Dates Details Instructions not documented Name Dates Details Instructions not documented Name Dates Details Instructions not documented Name Dates Details Instructions not documented Assessments Diagnosis Anemia, unspecified type - P rimary Monoclonal gammopathy Monoclonal paraproteinemia Diagnosis Bilateral carotid artery rick nosis - Primary Occlusion and stenosis of carotid artery without mention of cerebral infarction PAD (peripheral artery disea se) ([facility]) Unspecified peripheral vascular disease History of carotid endartere ctomy Other postprocedural status Dyslipidemia Other and unspecified hyperlipidemia Claudication of lower extrem ity ([facility]) Diagnosis Abnormal stress test Other nonspecific abnormal cardiovascular system function study Diagnosis Anemia, unspecified type - P rimary Monoclonal gammopathy Monoclonal paraproteinemia Abdominal pain, unspecified abdominal location Diagnosis Anemia, unspecified type - P rimary Monoclonal gammopathy Monoclonal paraproteinemia Tobacco use disorder Diagnosis Neurogenic claudication Spinal stenosis of lumbar region PAD (peripheral artery disea se) ([facility]) Unspecified peripheral vascular disease Claudication of lower extrem ity ([facility]) Diagnosis Anemia, unspecified type - P rimary Monoclonal gammopathy Monoclonal paraproteinemia Fatigue, unspecified type Diagnosis Chest pain, unspecified type Diagnosis Bilateral carotid artery stenosis Occlusion and stenosis of carotid artery without mention of cerebral infarction Diagnosis Screening for malignant neoplasm of respiratory organ Special screening for malignant neoplasm of the respiratory organs Cigarette Smoker Tobacco use disorder Diagnosis Chronic obstructive pulmonary disease, unspecified COPD type ([facility])- Primary Cigarette Smoker Tobacco use disorder Screening for malignant neoplasm of respiratory organ Special screening for malignant neoplasm of the respiratory organs Diagnosis Facial numbness- Primary Disturbance of skin sensation Statin intolerance Abnormal stress test Other nonspecific abnormal cardiovascular system function study Diagnosis Pneumonia of left lower lobe due to infectious organism ([facility])- Primary Diagnosis Anemia, unspecified type- Primary Monoclonal gammopathy Monoclonal paraproteinemia Fatigue, unspecified type SOB (shortness of breath) Shortness of breath Diagnosis COPD exacerbation ([facility])- Primary Obstructive chronic bronchitis with exacerbation Diagnosis Abnormal stress test Other nonspecific abnormal cardiovascular system function study Diagnosis Stenosis of left carotid artery Occlusion and stenosis of carotid artery without mention of cerebral infarction History of right-sided carotid endarterectomy Diagnosis Stenosis of left iliac artery ([facility]) Atherosclerosis of [place] arteries of the extremities, unspecified Diagnosis Inadequately controlled diabetes mellitus ([facility]) Type II or unspecified type diabetes mellitus without mention of complication, not stated as uncontrolled IDDM (insulin dependent diabetes mellitus) ([facility]) Dyslipidemia Other and unspecified hyperlipidemia Diagnosis Fall, initial encounter Alcoholic intoxication with complication ([facility]) Fall down stairs Accidental fall on or from other stairs or steps EtOH dependence ([facility]) Diagnosis Chest pain, unspecified type PVD (peripheral vascular disease) ([facility]) Unspecified peripheral vascular disease Diagnosis Screening for malignant neoplasm of respiratory organ Special screening for malignant neoplasm of the respiratory organs Cigarette Smoker Tobacco use disorder Diagnosis Closed fracture of multiple ribs of right side, initial encounter Closed fracture of multiple ribs of left side, initial encounter Closed extensive facial fractures, initial encounter ([facility]) Closed fracture of multiple ribs of both sides, initial encounter Closed fracture of left orbital floor, initial encounter ([facility]) Diagnosis Nipple pain Other sign and symptom in breast Diagnosis Abnormal stress test- Primary Other nonspecific abnormal cardiovascular system function study PAD (peripheral artery disease) ([facility]) Unspecified peripheral vascular disease PVD (peripheral vascular disease) ([facility]) Unspecified peripheral vascular disease Diagnosis Inadequately controlled diabetes mellitus ([facility])- Primary Type II or unspecified type diabetes mellitus without mention of complication, not stated as uncontrolled Dyslipidemia Other and unspecified hyperlipidemia Diagnosis Left carotid artery stenosis Stenosis of left iliac artery ([facility]) Atherosclerosis of [place] arteries of the extremities, unspecified History of carotid endarterectomy Other postprocedural status Neurogenic claudication Spinal stenosis of lumbar region Diagnosis Tobacco use disorder Loss of weight Diagnosis Stenosis of left carotid artery- Primary Occlusion and stenosis of carotid artery without mention of cerebral infarction History of right-sided carotid endarterectomy Stenosis of left iliac artery ([facility]) Atherosclerosis of [place] arteries of the extremities, unspecified Neurogenic claudication Spinal stenosis of lumbar region Diagnosis Type 2 diabetes mellitus without complications ([facility]) Diagnosis Anemia, unspecified type- Primary Monoclonal gammopathy Monoclonal paraproteinemia Diagnosis Prominent abdominal aortic pulse History of Present Illness * Guillermo Dewitt MD - 09/28/2018 9:42 AM EST Formatting of this note may be different from the original. CLINIC FOLLOW UP PATIENT: Stevo Elizalde : 1950 AGE: 68 y.o. SEX: male RACE: [1] PCP: Jose Dailey MD REFERRAL: No ref. provider found HPI Reports anxiety secondary to recent diagnosis of ovarian malignancy in a sister who is being discharged to hospice and another sister post PEA/ hypoxic encephalopathy both at [facility]. HEMATOLOGIC HX Has been a diabetic for 10 years, under control for the most part ,followed by Dr Rochelle Cheung for chronic renal insufficiency. Has also been noted to have anemia with macrocytosis. 08/17/2017 BUN/creatinine 28/1.36 calcium 9 vitamin B12 825, folate more than 20, serum free light chains elevated however ratio is completely normal, normal serum protein electrophoresis pattern noted, serum immunofixation is normal. Reticulocyte count 1.44 08/30/2017 skeletal survey indicates healed fractures involving the bilateral ribs. ( h/o remote trauma) 12/18/2017 endoscopy performed at [facility] by indicates no abnormality, colonoscopy demonstrates the prostate to be 2+ non nodular, sessile 3 mm polyp within the proximal ascending colon. 12/20/2017 H&H is 12.1/35, MCV is 102.4, serum protein electrophoresis demonstrates a normal pattern, serum kappa free light chain is elevated however ratio is normal, serum immunofixation does not demonstrate any evidence of paraprotein. ALLERGIES Allergies Allergen Reactions Chantix [Varenicline] [facility] has a current medication list which includes the following prescription(s): aclidinium bromide, albuterol, albuterol, clopidogrel, cyanocobalamin, famotidine, fluticasone-salmeterol, folic acid,gemfibrozil, lantus solostar u- 100 insulin, lisinopril, loratadine, metformin, multivitamin with minerals, ondansetron, pantoprazole, pregabalin, propranolol, sodium bicarbonate, spiriva with handihaler, cilostazol, diphenoxylate-atropine, lovastatin, and oxycodone-acetaminophen. PMH/PSH Past Medical History: Diagnosis Date Arthritis Carotid artery occlusion CKD (chronic kidney disease) Stage III Claudication ([facility]) COPD (chronic obstructive pulmonary disease) ([facility]) Diabetes mellitus (HCC) Essential tremor History of pneumonia Hyperlipidemia Hypertension Leg cramps MGUS (monoclonal gammopathy of unknown significance) Peptic ulcer disease PVD (peripheral vascular disease) ([facility]) Rhabdomyolysis 2010 Stroke (HCC) 2010 R side Past Surgical History: Procedure Laterality Date carotid angio 2010 HAND SURGERY Right 2009 MT THROMBOENDARTECTMY NECK,NECK INCIS Right 2009 SHOULDER OPEN ROTATOR CUFF REPAIR Left 2014 FH Family History Problem Relation Age of Onset Heart attack Father Diabetes Sister Heart attack Sister Stroke Sister Hypertension Sister Deep vein thrombosis Sister leg Heart attack Brother Cancer Maternal Grandfather Cancer Paternal Grandmother Cancer Maternal Uncle Heart disease Sister SH Social History Social History Marital status: Spouse name: N/A Number of children: N/A Years of education: N/A Occupational History Disability [employer] Social History Main Topics Smoking status: Current Every Day Smoker Packs/day: 1.00 Years: 55.00 Types: Cigarettes Smokeless tobacco: Never Used Comment: Former 3-4 ppd 40 years Alcohol use Yes Comment: occasional Drug use: No Sexual activity: Not Asked Other Topics Concern None Social History Narrative Pets: cat Positive PPD ROS Review of Systems Constitutional: Negative. HENT: Negative. Eyes: Negative. Cardiovascular: Negative. Endocrine: Negative. Genitourinary: Negative. Musculoskeletal: Negative. Skin: Negative. Neurological: Negative. Hematological: Negative. Psychiatric/Behavioral: Negative. Depressed mood EXAM BP (!) 169/76 (BP Location: Right arm, Patient Position: Sitting) Pulse 77 Temp 97.8 F (36.6 C) (Oral) Ht 5' 7" Wt 68.7 kg (151 lb 6.4 oz) SpO2 90% BMI 23.71 kg/m Physical Exam Constitutional: He is oriented to person, place, and time. He appears well- developed and well-nourished. HENT: Head: Normocephalic and atraumatic. Eyes: Pupils are equal, round, and reactive to light. Conjunctivae and EOM are normal. Neck: Normal range of motion. Neck supple. Cardiovascular: Normal rate and regular rhythm. Pulmonary/Chest: Effort normal and breath sounds normal. Abdominal: Soft. Bowel sounds are normal. Musculoskeletal: Normal range of motion. Neurological: He is alert and oriented to person, place, and time. He has normal reflexes. Skin: Skin is warm and dry. Psychiatric: He has a normal mood and affect. His behavior is normal. Judgment and thought content normal. LABS / IMAGING Reviewed labs obtained after the visit- anemia resolved, persistent progressive macrocytosis IMPRESSION 67-year-old male with history of chronic renal insufficiency, diabetes mellitus, noted to have macrocytosis. ASSESSMENT / PLAN Anemia with macrocytosis : Noted counts normalised, persistent macrocytosis, on vitamin B12 and folate supplementation, asymptomatic, rule out evolving myelodysplastic syndrome or hypothyroidism, recommend reevaluation in 4 months with counts prior to visit. I became aware regarding his sister's conditions today, have followed his sister for the ovarian carcinoma at the hospital, emotional support was provided. Thank you for the privilege of allowing me to participate in the care of Stevo Elizalde. GUILLERMO DEWITT MD [employer] in this encounter* Lola Cruz MD - 01/22/2019 2:41 PM EDT HPI: Stevo Elizalde is a 68 y.o. male [id number] smoker currently smoking half pack a day with COPD, peripheral artery disease, diabetes, hypertension, chronic kidney disease, MGUS and history ofstroke who presents today for follow- up of his low-dose chest CT. His imaging does not show any evidence of malignancy. From a respiratory standpoint has been doing fairly well. For some reason he has been using both Spiriva and Tudorza Pressair. I explained to Mr. Elizalde that he can only use 1 form of anticholinergic inhaler. He chooses Spiriva. He has not had any upper respiratory infections nor required hospitalization. He has been unable to quit smoking. He is somewhat depressed today due to numerous deaths within his family in the last few months. EXAMINATION: CT CHEST LOW DOSE LUNG SCREENING - [facility]SP HISTORY: ORDERING SYSTEM PROVIDED HISTORY: Screening for malignant neoplasm of respiratory organ, TECHNOLOGIST PROVIDED HISTORY: Reason for exam: lowdose lung screen ORDERING SYSTEM PROVIDED DIAGNOSIS CODES: Z12.2 Screening for malignant neoplasm of respiratory organ F17.210 Cigarette Smoker COMPARISON: 01/11/2018 at [facility] in [place] and 09/17/2010 from [place]. FINDINGS: There are a couplet of perifissural nodules posterior left upper lobe measuring up to 2 mm. These are stable since 2009. Multiple calcified granulomata are seen left upper lobe and lingula. There arealso calcified granulomata in the right lower lobe and right upper lobe and right middle lobe. No developing ground- glass or solid type pulmonary nodules. There is a background of moderate centrilobular pulmonary emphysema. No central endobronchial obstruction or mass. Extensive atherosclerotic calcification is seen in the coronary arteries and thoracic aorta. Thoracic aortic arch is ectatic measuring up to 3.9 cm although unchanged. No mediastinal or hilar lymphadenopathy. Scan into the upper abdomen shows normal-sized adrenal glands. Partial visualization of radiodense material in the gallbladder suggesting gallstones. IMPRESSION: No CT evidence for developing pulmonary malignancy. Lung-RADs 1 Management: Continue annual screening with LDCT in 12 months. Current Outpatient Medications Medication Sig Dispense Refill ADVAIR DISKUS 500-50 mcg/dose diskus inhaler INHALE TWICE A DAY 1 Inhaler 11 albuterol (PROVENTIL) 2.5 mg /3 mL (0.083 %) nebulizer solution Take 3 mL (2.5 mg total) by nebulization every 4 (four) hours as needed for wheezing . 120 mL 11 calcium-vitamin D (calcium-vitamin D) 500 mg(1,250mg) -200 unit per tablet Take 1 tablet by mouth 2(two) times a day with meals . clopidogrel (PLAVIX) 75 mg tablet Take 75 mg by mouth daily. cyanocobalamin (vitamin B-12) 1000 MCG tablet Take 1,000 mcg by mouth daily. diphenoxylate-atropine (LOMOTIL) 2.5-0.025 mg per tablet Take 1 tablet by mouth as needed for diarrhea. famotidine (PEPCID) 20 MG tablet Take 20 mg by mouth 2 (two) times a day. folic acid (FOLVITE) 1 MG tablet Take 1 mg by mouth daily. gemfibrozil (LOPID) 600 MG tablet Take 600 mg by mouth 2 (two) times a day. LANTUS SOLOSTAR 100 unit/mL (3 mL) InPn INJECT 30 UNITS SUBCUTANEOUSLY TWICE A DAY 11 lisinopril (PRINIVIL,ZESTRIL) 20 MG tablet Take 40 mg by mouth daily . loratadine (CLARITIN) 10 mg tablet Take 10 mg by mouth daily as needed for allergies. metFORMIN (GLUCOPHAGE) 500 MG tablet Take 500 mg by mouth 2 (two) times a day with meals. multivitamin with minerals tablet Take 1 tablet by mouth daily. ondansetron (ZOFRAN) 4 MG tablet Take 4 mg by mouth every 4 (four) hours as needed for nausea . oxyCODONE-acetaminophen (PERCOCET) 7.5-325 mg per tablet Take 1 tablet by mouth every 8 (eight) hours as needed Takes 1/2 tab. pantoprazole (PROTONIX) 40 MG tablet Take 40 mg by mouth daily. pregabalin (LYRICA) 75 MG capsule Take 50 mg by mouth 2 (two) times a day . propranolol (INDERAL) 20 MG tablet Take 20 mg by mouth 2 (two) times a day. sodium bicarbonate 650 MG tablet Take 650 mg by mouth 2 (two) times a day. SPIRIVA WITH HANDIHALER 18 mcg inhalation capsule VENTOLIN HFA 90 mcg/actuation inhaler INHALE 2 PUFFS EVERY 4 HOURS NEEDED 18 Inhaler 11 No current facility-administered medications for this visit. PMH, surgical history, family history, social history: Reviewed, unchanged except where noted. Review of Systems - History obtained from the patient General ROS: negative for - chills, fatigue, fever or weight loss ENT ROS: negative Respiratory ROS: positive for - shortness of breath negative for - cough, hemoptysis, pleuritic pain, sputum changes or wheezing Cardiovascular ROS: positive for - dyspnea on exertion negative for - chest pain, edema or palpitations Gastrointestinal ROS: no abdominal pain, change in bowel habits, or black or bloody stools BP 140/60 Pulse 92 Wt 67 kg (147 lb 12.8 oz) SpO2 92% BMI 23.15 kg/m General appearance: alert, appears stated age, cooperative and no distress Head: Normocephalic, without obvious abnormality Nose: Lesion on nose may be basal cell Throat: no thrush Neck: no adenopathy, no JVD and thyroid not enlarged, symmetric, no tenderness/mass/nodules Lungs: diminished breath sounds Heart: regular rate and rhythm, S1, S2 normal, no murmur, click, rub or gallop Extremities: extremities normal, atraumatic, no cyanosis or edema or clubbing Neurologic: tremor ASSESMENT/PLAN: COPD Tobacco use His inhaled regimen will consist of Spiriva and Advair. He absolutely needs to stop smoking. He will be due for low-dose chest CT in 1 year. I will see him back for routine follow-up in 6 months or sooner if he develops problems. in this encounter* Aquiles Herrera MD - 04/01/2019 1:48 PM EDT [facility] [address] ([address]) [facility] [address] [facility] [id number] Subjective: Stevo Elizalde is a 69 y.o. male seen in the office today for Chief Complaint Patient presents with Follow-up pt states he has had numbness on the Left side of his face for 3 months Chest Pain Overview of Problems Addressed: Problem Statin Intolerance ??? Rhabdomyolysis in past. Abnormal Stress Test Dobutamine stress echo October 2018- for ischemia at a very low submaximal heart rate reviewed. Normal LV function No history of SD. Stage III-IV renal insufficiency Remote history of CVA Follows with vascular hospitalized in January of 2017 at [facility] in [place]. He had nausea and some abdominal pain, warm feeling from his head down through his body, perhaps some chest discomfort. Difficult historian. Troponins were negative. Underwent a nuclear stress test in [place] on February 22, 2017. Again noted was a medium size mild intensity partially reversible defect involving the apical mid and basalinferior wall thought probably due to a secondary diaphragmatic attenuation artifact. Ejection fraction was intact 72%. Some septal hypokinesis was noted. This is similar to the nuclear stress test he had back in 2014 at [facility]. History of CVA, ambulates slowly. History of insulin diabetes and right carotid endarterectomy following a CVA remotely. History of atypical chest discomfort underwent a nuclear stress test in December 2014 which was mildly abnormal small reversible proximal inferior defect cannot ask ischemia with significant artifact was noted. Global left ventricular systolic function was normal. At that time recommended continued medical therapy holding off a left heart catheterization. Smoker History of COPD. Assessment & Plan: Abnormal stress test Chronic dyspnea on exertion continues to smoke. Follows with nephrology, pulmonary hematology. Is on Lyrica per PCP complains of chronic numbness left side of his body. No clear-cut anginal symptoms.Very atypical chest discomfort at times. Heart rate 81 blood pressure 165/92 we will try to get him on a long-acting beta-danny instead ofthe short acting propranolol 20 mg twice a day try Inderal LA 80 mg daily if not approved by pharmacy we will go with metoprolol XL. Otherwise continues on dual antiplatelet therapy apparently came back to his history of stroke. No history of any coronary intervention. Continue to follow. Certainly he had clear-cut progressive anginal symptoms would consider repeat nuclear stress testing now little over 2 years we will hold off on at present time. Histories: Past Medical History: Diagnosis Date Arthritis Carotid artery occlusion CKD (chronic kidney disease) Stage III Claudication (HCC) COPD (chronic obstructive pulmonary disease) (HCC) Diabetes mellitus (HCC) Essential tremor History of pneumonia Hyperlipidemia Hypertension Leg cramps MGUS (monoclonal gammopathy of unknown significance) Peptic ulcer disease PVD (peripheral vascular disease) (HCC) Rhabdomyolysis 2010 Stroke (HCC) 2010 R side Past Surgical History: Procedure Laterality Date carotid angio 2010 HAND SURGERY Right 2009 MT THROMBOENDARTECTMY NECK,NECK INCIS Right 2010 SHOULDER OPEN ROTATOR CUFF REPAIR Left 2015 Family History Problem Relation Age of Onset Heart attack Father Diabetes Sister Heart attack Sister Stroke Sister Hypertension Sister Deep vein thrombosis Sister leg Ovarian cancer Sister Heart attack Brother Cancer Maternal Grandfather Cancer Paternal Grandmother Cancer Maternal Uncle Heart disease Sister Heart disease Sister Social History Tobacco Use Smoking status: Current Every Day Smoker Packs/day: 1.00 Years: 55.00 Pack years: 55.00 Types: Cigarettes Smokeless tobacco: Never Used Tobacco comment: Former 3-4 ppd 40 years Substance Use Topics Alcohol use: Not Currently Comment: occasional Drug use: No Patient's Medications New Prescriptions PROPRANOLOL (INDERAL LA) 80 MG 24 HR CAPSULE Take 1 (one) capsule (80 mg total) by mouth daily . Previous Medications ACCU-CHEK ELLI PLUS TEST STRP STRIPS by Miscellaneous route 2 (two) times a day TEST BLOOD SUGAR TWICE A DAY . ADVAIR DISKUS 500-50 MCG/DOSE DISKUS INHALER INHALE TWICE A DAY ALBUTEROL (PROVENTIL) 2.5 MG /3 ML (0.083 %) NEBULIZER SOLUTION Take 3 mL (2.5 mg total) by nebulization every 4 (four) hours as needed for wheezing . ASPIRIN 81 MG EC TABLET Take 81 mg by mouth daily . BD ULTRA-FINE SHORT PEN NEEDLE 31 GAUGE X 5/16" NDLE USE DIRECTED TWICE DAILY WITH LANTUS DX: DMII/E11.9 CALCIUM-VITAMIN D (CALCIUM-VITAMIN D) 500 MG(1,250MG) -200 UNIT PER TABLET Take 1 tablet by mouth 2(two) times a day with meals . CLOPIDOGREL (PLAVIX) 75 MG TABLET Take 75 mg by mouth daily. CYANOCOBALAMIN (VITAMIN B-12) 1000 MCG TABLET Take 1,000 mcg by mouth daily. DIPHENOXYLATE-ATROPINE (LOMOTIL) 2.5-0.025 MG PER TABLET Take 1 tablet by mouth as needed for diarrhea. FAMOTIDINE (PEPCID) 20 MG TABLET Take 20 mg by mouth 2 (two) times a day. FOLIC ACID (FOLVITE) 1 MG TABLET Take 1 mg by mouth daily. GEMFIBROZIL (LOPID) 600 MG TABLET Take 600 mg by mouth 2 (two) times a day. LANTUS SOLOSTAR 100 UNIT/ML (3 ML) INPN INJECT 30 UNITS SUBCUTANEOUSLY TWICE A DAY LISINOPRIL (PRINIVIL,ZESTRIL) 40 MG TABLET Take 40 mg by mouth daily . LORATADINE (CLARITIN) 10 MG TABLET Take 10 mg by mouth daily as needed for allergies. METFORMIN (GLUCOPHAGE) 500 MG TABLET Take 500 mg by mouth 2 (two) times a day with meals. MULTIVITAMIN WITH MINERALS TABLET Take 1 tablet by mouth daily. ONDANSETRON (ZOFRAN) 4 MG TABLET Take 4 mg by mouth every 4 (four) hours as needed for nausea . OXYCODONE-ACETAMINOPHEN (PERCOCET) 7.5-325 MG PER TABLET Take 1 tablet by mouth every 8 (eight) hours as needed Takes 1/2 tab. PANTOPRAZOLE (PROTONIX) 40 MG TABLET Take 40 mg by mouth daily. PREGABALIN (LYRICA) 75 MG CAPSULE Take 50 mg by mouth 2 (two) times a day . SODIUM BICARBONATE 650 MG TABLET Take 650 mg by mouth 2 (two) times a day. SPIRIVA WITH HANDIHALER 18 MCG INHALATION CAPSULE VENTOLIN HFA 90 MCG/ACTUATION INHALER INHALE 2 PUFFS EVERY 4 HOURS NEEDED Modified Medications No medications on file Discontinued Medications LISINOPRIL (PRINIVIL,ZESTRIL) 20 MG TABLET Take 40 mg by mouth daily . PROPRANOLOL (INDERAL) 20 MG TABLET Take 20 mg by mouth 2 (two) times a day. Allergies Allergen Reactions Chantix [Varenicline] Swelling Review of Systems Constitution: Negative for diaphoresis, malaise/fatigue, weight gain and weight loss. HENT: Negative for hearing loss, nosebleeds and tinnitus. Eyes: Negative for blurred vision and visual disturbance. Cardiovascular: Positive for chest pain and dyspnea on exertion. Negative for claudication, cyanosis, irregular heartbeat, leg swelling, near-syncope, orthopnea, palpitations, paroxysmal nocturnal dyspnea and syncope. Atypical chest discomfort Respiratory: Negative for hemoptysis, shortness of breath and snoring. Endocrine: Negative for cold intolerance and heat intolerance. Hematologic/Lymphatic: Does not bruise/bleed easily. Skin: Negative for flushing, poor wound healing and rash. Musculoskeletal: Negative for back pain, muscle weakness and myalgias. Gastrointestinal: Negative for abdominal pain, change in bowel habit, melena, nausea and vomiting. Genitourinary: Negative for decreased libido and hematuria. Neurological: Negative for loss of balance and numbness. Psychiatric/Behavioral: Negative for memory loss. The patient is not nervous/anxious. Objective: Physical Exam Constitutional: He is oriented to person, place, and time. He appears well- developed. No distress. HENT: Head: Normocephalic. Eyes: Pupils are equal, round, and reactive to light. No scleral icterus. Neck: No JVD present. Cardiovascular: Regular rhythm, S1 normal and S2 normal. Exam reveals decreased pulses. Exam reveals no gallop, no S3 and no S4. No murmur heard. Pulses: Radial pulses are 2+ on the right side, and 2+ on the left side. Pulmonary/Chest: Breath sounds normal. No stridor. No respiratory distress. He has no wheezes. He has no rales. Abdominal: Soft. He exhibits no distension. There is no tenderness. There is no guarding. Musculoskeletal: He exhibits no edema or tenderness. Neurological: He is alert and oriented to person, place, and time. Coordination normal. Walks with cane. Skin: Skin is warm and dry. He is not diaphoretic. Psychiatric: He has a normal mood and affect. Nursing note and vitals reviewed. Vitals: Vitals: 04/01/19 1319 BP: (!) 165/92 BP Location: Left arm Patient Position: Sitting BP Cuff Size: X-large Adult Pulse: 81 SpO2: 98% Weight: 66.7 kg (147 lb) Height: 5' 7" Body mass index is 23.02 kg/m . Orders Placed This Encounter Procedures ECG 12 Lead Follow Up Ordered: Return in about 6 months (around 10/01/2019). Aquiles Herrera MD * Kiana Cheatham MA - 04/01/2019 1:26 PM EDT Review of Systems Constitution: Negative for diaphoresis, malaise/fatigue, weight gain and weight loss. HENT: Negative for hearing loss, nosebleeds and tinnitus. Eyes: Negative for blurred vision and visual disturbance. Cardiovascular: Positive for chest pain. Negative for claudication, cyanosis, dyspnea on exertion, irregular heartbeat, leg swelling, near-syncope, orthopnea, palpitations, paroxysmal nocturnal dyspnea and syncope. Respiratory: Negative for hemoptysis, shortness of breath and snoring. Endocrine: Negative for cold intolerance and heat intolerance. Hematologic/Lymphatic: Does not bruise/bleed easily. Skin: Negative for flushing, poor wound healing and rash. Musculoskeletal: Negative for back pain, muscle weakness and myalgias. Gastrointestinal: Negative for abdominal pain, change in bowel habit, melena, nausea and vomiting. Genitourinary: Negative for decreased libido and hematuria. Neurological: Negative for loss of balance and numbness. Psychiatric/Behavioral: Negative for memory loss. The patient is not nervous/anxious. documented in this encounter* Guillermo Dewitt MD - 05/27/2019 11:23 AM EDT CLINIC FOLLOW UP PATIENT: Stevo Elizalde : 1950 AGE: 69 y.o. SEX: male RACE: [1] PCP: Phyllis Mae MD REFERRAL: No ref. provider found HPI Returns in f/u. Has not been feeling well for several days now, increasing cough with mucoid sputum, multiple family members sick, felt feverish last night. Shortness of breath on exertion no pain on deep inspiration. Chronic smoker. HEMATOLOGIC HX Has been a diabetic for 10 years, under control for the most part ,followed by Dr Rochelle Cheung for chronic renal insufficiency. Has also been noted to have anemia with macrocytosis. 08/17/2017 BUN/creatinine 28/1.36 calcium 9 vitamin B12 825, folate more than 20, serum free light chains elevated however ratio is completely normal, normal serum protein electrophoresis pattern noted, serum immunofixation is normal. Reticulocyte count 1.44 08/30/2017 skeletal survey indicates healed fractures involving the bilateral ribs. ( h/o remote trauma) 12/18/2017 endoscopy performed at [facility] by indicates no abnormality, colonoscopy demonstrates the prostate to be 2+ non nodular, sessile 3 mm polyp within the proximal ascending colon. 12/20/2017 H&H is 12.1/35, MCV is 102.4, serum protein electrophoresis demonstrates a normal pattern, serum kappa free light chain is elevated however ratio is normal, serum immunofixation does not demonstrate any evidence of paraprotein. ALLERGIES Allergies Allergen Reactions Chantix [Varenicline] [facility] has a current medication list which includes the following prescription(s): accu-chek elli plus test strp, advair diskus, albuterol, aspirin, bd ultra- fine short pen needle, calcium-vitamin d, clopidogrel, cyanocobalamin, diphenoxylate-atropine, famotidine, folic acid, gemfibrozil, lantus solostar u- 100 insulin, lisinopril, loratadine, metformin, multivitamin with minerals, ondansetron, oxycodone-acetaminophen, pantoprazole, pregabalin, propranolol, sodium bicarbonate, spiriva with handihaler, and ventolin hfa. PMH/PSH Past Medical History: Diagnosis Date Arthritis Carotid artery occlusion CKD (chronic kidney disease) Stage III Claudication ([facility]) COPD (chronic obstructive pulmonary disease) ([facility]) Diabetes mellitus ([facility]) Essential tremor History of pneumonia Hyperlipidemia Hypertension Leg cramps MGUS (monoclonal gammopathy of unknown significance) Peptic ulcer disease PVD (peripheral vascular disease) ([facility]) Rhabdomyolysis 2010 Stroke ([facility]) 2010 R side Past Surgical History: Procedure Laterality Date carotid angio 2010 HAND SURGERY Right 2009 MT THROMBOENDARTECTMY NECK,NECK INCIS Right 2009 SHOULDER OPEN ROTATOR CUFF REPAIR Left 2014 FH Family History Problem Relation Age of Onset Heart attack Father Diabetes Sister Heart attack Sister Stroke Sister Hypertension Sister Deep vein thrombosis Sister leg Ovarian cancer Sister Heart attack Brother Cancer Maternal Grandfather Cancer Paternal Grandmother Cancer Maternal Uncle Heart disease Sister Heart disease Sister SH Social History Socioeconomic History Marital status: Spouse name: Not on file Number of children: Not on file Years of education: Not on file Highest education level: Not on file Occupational History Occupation: Disability Comment: [employer] Social Needs Financial resource strain: Not on file Food insecurity: Worry: Not on file Inability: Not on file Transportation needs: Medical: Not on file Non-medical: Not on file Tobacco Use Smoking status: Current Every Day Smoker Packs/day: 1.00 Years: 55.00 Pack years: 55.00 Types: Cigarettes Smokeless tobacco: Never Used Tobacco comment: Former 3-4 ppd 40 years Substance and Sexual Activity Alcohol use: Not Currently Comment: occasional Drug use: No Sexual activity: Not on file Lifestyle Physical activity: Days per week: Not on file Minutes per session: Not on file Stress: Not on file Relationships Social connections: Talks on phone: Not on file Gets together: Not on file Attends mormonism service: Not on file Active member of club or organization: Not on file Attends meetings of clubs or organizations: Not on file Relationship status: Not on file Other Topics Concern Not on file Social History Narrative Pets: cat Positive PPD ROS Review of Systems Constitutional: Negative. HENT: Negative. Eyes: Negative. Respiratory: Positive for cough and shortness of breath. Cardiovascular: Negative. Endocrine: Negative. Genitourinary: Negative. Skin: Negative. Neurological: Negative. Insomnia Hematological: Negative. Psychiatric/Behavioral: Negative. Depressed mood EXAM BP 146/83 (BP Location: Right arm) Pulse 92 Temp 98.3 F (36.8 C) (Oral) Wt 66.2 kg (146 lb) SpO2 (!) 84% BMI 22.87 kg/m Physical Exam Constitutional: He is oriented to person, place, and time. He appears well- developed and well-nourished. HENT: Head: Normocephalic and atraumatic. Eyes: Pupils are equal, round, and reactive to light. Conjunctivae and EOM are normal. Neck: Normal range of motion. Neck supple. Cardiovascular: Normal rate and regular rhythm. Pulmonary/Chest: Effort normal and breath sounds normal. Crackles over the left base with occasional expiratory wheeze. Abdominal: Soft. Bowel sounds are normal. Musculoskeletal: Normal range of motion. Neurological: He is alert and oriented to person, place, and time. He has normal reflexes. Skin: Skin is warm and dry. Psychiatric: He has a normal mood and affect. His behavior is normal. Judgment and thought content normal. LABS / IMAGING Reviewed labs obtained after the visit- anemia mild, persistent macrocytosis IMPRESSION 69-year-old male with history of chronic renal insufficiency, diabetes mellitus, noted to have macrocytosis. ASSESSMENT / PLAN Anemia with macrocytosis : Noted mild anemia, persistent macrocytosis. Reviewed the recent extensive workup, no evidence of nutritional deficiency, thyroid functions within normal limits, no evidence of reticulocytosis. Differential diagnosis includes macrocytosis secondary to alco hol use versus evolving myelodysplastic syndrome, encouraged to consider quitting use of alcohol, H&H very stable, continue to monitor counts Rule out pneumonia, sent to ER for further evaluation and management. Thank you for the privilege of allowing me to participate in the care of Stevo Elizalde. GUILLERMO DEWITT MD [employer] [place] documented in this encounter* Aquiles Herrera MD - 10/24/2019 4:11 PM EST [facility] [address] ([address]) [facility] [address] [facility] [id number] Subjective: Stevo Elizalde is a 69 y.o. male seen in the office today for Chief Complaint Patient presents with Follow-up 6 mo ov Overview of Problems Addressed: Problem Abnormal Stress Test Dobutamine stress echo October 2018 negative for ischemia at a very low submaximal heart rate reviewed. Normal LV function No history of SD. Stage III renal insufficiency Remote history of CVA Follows with vascular. hospitalized in January of 2017 at [facility] in [place]. He had nausea and some abdominal pain, warm feeling from his head down through his body, perhaps some chest discomfort. Difficult historian. Troponins were negative. Underwent a nuclear stress test in [place] on February 22, 2017. Again noted was a medium size mild intensity partially reversible defect involving the apical mid and basalinferior wall thought probably due to a secondary diaphragmatic attenuation artifact. Ejection fraction was intact 72%. Some septal hypokinesis was noted. This is similar to the nuclear stress test he had back in 2014 at [facility]. History of CVA, ambulates slowly. History of insulin diabetes and right carotid endarterectomy following a CVA remotely. History of atypical chest discomfort underwent a nuclear stress test in December 2014 which was mildly abnormal small reversible proximal inferior defect cannot ask ischemia with significant artifact was noted. Global left ventricular systolic function was normal. At that time recommended continued medical therapy holding off a left heart catheterization. Smoker History of COPD. Assessment & Plan: Abnormal stress test Denies any significant chest pains. Said he recently stated a cecilia [place] had to walk up 2 flights of stairs on a regular basis. Denies significant shortness of breath with that. Does have some discomfort in his legs calves bilaterally polyneuropathy no clear-cut claudication symptoms will be following up with vascular near future cardiac exam unremarkable. Blood pressure is elevated [id number] pulse 78 and regular O2 sat 96%. We will go ahead and add amlodipine 2.5 mg daily for his blood pressure. Previous stress testing reviewed no history of SD no history of heart catheterization. History of PAD and history of stroke. Patient is asking for Viagra he is on no nitroglycerin products trial of the 50 mg size if no ill effects and poor response could go with the 100 mg total. Reviewed that he cannot take nitroglycerin which he is not been on or have available with that medication. Histories: Past Medical History: Diagnosis Date Arthritis Carotid artery occlusion CKD (chronic kidney disease) Stage III Claudication ([facility]) COPD (chronic obstructive pulmonary disease) ([facility]) Diabetes mellitus ([facility]) Essential tremor History of pneumonia Hyperlipidemia Hypertension Leg cramps MGUS (monoclonal gammopathy of unknown significance) Peptic ulcer disease PVD (peripheral vascular disease) ([facility]) Rhabdomyolysis 2010 Stroke ([facility]) 2010 R side Past Surgical History: Procedure Laterality Date carotid angio 2010 HAND SURGERY Right 2009 MT THROMBOENDARTECTMY NECK,NECK INCIS Right 2009 SHOULDER OPEN ROTATOR CUFF REPAIR Left 2014 Family History Problem Relation Age of Onset Heart attack Father Diabetes Sister Heart attack Sister Stroke Sister Hypertension Sister Deep vein thrombosis Sister leg Ovarian cancer Sister Heart attack Brother Cancer Maternal Grandfather Cancer Paternal Grandmother Cancer Maternal Uncle Heart disease Sister Heart disease Sister Social History Tobacco Use Smoking status: Current Every Day Smoker Packs/day: 1.00 Years: 55.00 Pack years: 55.00 Types: Cigarettes Smokeless tobacco: Never Used Tobacco comment: Former 3-4 ppd 40 years Substance Use Topics Alcohol use: Yes Comment: occasional Drug use: No Patient's Medications New Prescriptions AMLODIPINE (NORVASC) 2.5 MG TABLET Take 1 (one) tablet (2.5 mg total) by mouth daily . SILDENAFIL (VIAGRA) 50 MG TABLET Take 1 (one) tablet (50 mg total) by mouth as needed for erectile dysfunction . Previous Medications ACCU-CHEK ELLI PLUS TEST STRP STRIPS by Miscellaneous route 2 (two) times a day TEST BLOOD SUGAR TWICE A DAY . ADVAIR DISKUS 500-50 MCG/DOSE DISKUS INHALER INHALE TWICE A DAY ALBUTEROL (PROVENTIL) 2.5 MG /3 ML (0.083 %) NEBULIZER SOLUTION Take 3 mL (2.5 mg total) by nebulization every 4 (four) hours as needed for wheezing . ASPIRIN 81 MG EC TABLET Take 81 mg by mouth daily . BD ULTRA-FINE SHORT PEN NEEDLE 31 GAUGE X 5/16" NDLE USE DIRECTED TWICE DAILY WITH LANTUS DX: DMII/E11.9 CALCIUM-VITAMIN D (CALCIUM-VITAMIN D) 500 MG(1,250MG) -200 UNIT PER TABLET Take 1 tablet by mouth 2(two) times a day with meals . CLOPIDOGREL (PLAVIX) 75 MG TABLET Take 75 mg by mouth daily. CYANOCOBALAMIN (VITAMIN B-12) 1000 MCG TABLET Take 1,000 mcg by mouth daily. DIPHENOXYLATE-ATROPINE (LOMOTIL) 2.5-0.025 MG PER TABLET Take 1 tablet by mouth as needed for diarrhea. FAMOTIDINE (PEPCID) 20 MG TABLET Take 20 mg by mouth 2 (two) times a day. FOLIC ACID (FOLVITE) 1 MG TABLET Take 1 mg by mouth daily. GEMFIBROZIL (LOPID) 600 MG TABLET Take 600 mg by mouth 2 (two) times a day. LANTUS SOLOSTAR 100 UNIT/ML (3 ML) INPN INJECT 30 UNITS SUBCUTANEOUSLY TWICE A DAY LISINOPRIL (PRINIVIL,ZESTRIL) 40 MG TABLET Take 40 mg by mouth daily . LORATADINE (CLARITIN) 10 MG TABLET Take 10 mg by mouth daily as needed for allergies. METFORMIN (GLUCOPHAGE) 500 MG TABLET Take 500 mg by mouth 2 (two) times a day with meals. MULTIVITAMIN WITH MINERALS TABLET Take 1 tablet by mouth daily. ONDANSETRON (ZOFRAN) 4 MG TABLET Take 4 mg by mouth every 4 (four) hours as needed for nausea . OXYCODONE-ACETAMINOPHEN (PERCOCET) 7.5-325 MG PER TABLET Take 1 tablet by mouth every 8 (eight) hours as needed Takes 1/2 tab. PANTOPRAZOLE (PROTONIX) 40 MG TABLET Take 40 mg by mouth daily. PREGABALIN (LYRICA) 75 MG CAPSULE Take 50 mg by mouth 2 (two) times a day . PROPRANOLOL (INDERAL LA) 80 MG 24 HR CAPSULE Take 1 (one) capsule (80 mg total) by mouth daily . SODIUM BICARBONATE 650 MG TABLET Take 650 mg by mouth 2 (two) times a day. SPIRIVA WITH HANDIHALER 18 MCG INHALATION CAPSULE VENTOLIN HFA 90 MCG/ACTUATION INHALER INHALE 2 PUFFS EVERY 4 HOURS NEEDED Modified Medications No medications on file Discontinued Medications No medications on file Allergies Allergen Reactions Chantix [Varenicline] Swelling Review of Systems Constitution: Negative for diaphoresis, malaise/fatigue, weight gain and weight loss. HENT: Negative for hearing loss, nosebleeds and tinnitus. Eyes: Negative for blurred vision and visual disturbance. Cardiovascular: Negative for chest pain, claudication, cyanosis, dyspnea on exertion, irregular heartbeat, leg swelling, near-syncope, orthopnea, palpitations, paroxysmal nocturnal dyspnea and syncope. Respiratory: Negative for hemoptysis, shortness of breath and snoring. Endocrine: Negative for cold intolerance and heat intolerance. Hematologic/Lymphatic: Does not bruise/bleed easily. Skin: Negative for flushing, poor wound healing and rash. Musculoskeletal: Negative for back pain, muscle weakness and myalgias. Gastrointestinal: Negative for abdominal pain, change in bowel habit, melena, nausea and vomiting. Genitourinary: Negative for decreased libido and hematuria. Neurological: Negative for loss of balance and numbness. Psychiatric/Behavioral: Negative for memory loss. The patient is not nervous/anxious. Objective: Physical Exam Constitutional: He is oriented to person, place, and time. He appears well- developed. No distress. HENT: Head: Normocephalic. Eyes: Pupils are equal, round, and reactive to light. No scleral icterus. Neck: No JVD present. Cardiovascular: Regular rhythm, S1 normal and S2 normal. Exam reveals decreased pulses. Exam reveals no gallop, no S3 and no S4. No murmur heard. Pulses: Radial pulses are 2+ on the right side and 2+ on the left side. Pulmonary/Chest: Breath sounds normal. No stridor. No respiratory distress. He has no wheezes. He has no rales. Abdominal: Soft. He exhibits no distension. There is no abdominal tenderness. There is no guarding. Musculoskeletal: General: No tenderness or edema. Neurological: He is alert and oriented to person, place, and time. Coordination normal. Walks with cane. Skin: Skin is warm and dry. He is not diaphoretic. Psychiatric: He has a normal mood and affect. Nursing note and vitals reviewed. Vitals: Vitals: 10/24/19 1542 10/24/19 1544 BP: (!) 165/87 (!) 170/93 BP Location: Right arm Right arm Patient Position: Sitting Sitting BP Cuff Size: Adult Adult Pulse: 78 SpO2: 96% Weight: 66.7 kg (147 lb) Body mass index is 23.02 kg/m . No orders of the defined types were placed in this encounter. Follow Up Ordered: Return in about 4 months (around 02/23/2020). Aquiles Herrera MD * Katalina Marie MA - 10/24/2019 3:37 PM EST Review of Systems Constitution: Negative for diaphoresis, malaise/fatigue, weight gain and weight loss. HENT: Negative for hearing loss, nosebleeds and tinnitus. Eyes: Negative for blurred vision and visual disturbance. Cardiovascular: Negative for chest pain, claudication, cyanosis, dyspnea on exertion, irregular heartbeat, leg swelling, near-syncope, orthopnea, palpitations, paroxysmal nocturnal dyspnea and syncope. Respiratory: Negative for hemoptysis, shortness of breath and snoring. Endocrine: Negative for cold intolerance and heat intolerance. Hematologic/Lymphatic: Does not bruise/bleed easily. Skin: Negative for flushing, poor wound healing and rash. Musculoskeletal: Negative for back pain, muscle weakness and myalgias. Gastrointestinal: Negative for abdominal pain, change in bowel habit, melena, nausea and vomiting. Genitourinary: Negative for decreased libido and hematuria. Neurological: Negative for loss of balance and numbness. Psychiatric/Behavioral: Negative for memory loss. The patient is not nervous/anxious. documented in this encounter* David Waters CNP - 12/27/2019 11:03 AM EST Patient ID: Stevo Elizalde is a 69 y.o. male 1950 Subjective: Stevo Elizalde presents for evaluation of Type 2 diabetes Patient has had diabetes for 15 years. Diagnosed in 2004 Patient has taken Insulin for 10 years. Patient has been following with Dr. Carmelita MD. Patient has been taking Lantus 10-30 units 1-3 times daily. He reports his blood sugars increase and decrease throughout the day. Patient reports hyperglycemia and hypoglycemia due to oral intake andtaking doses of lantus between 0-30 units 1-3 times daily. Outpatient Medications Marked as Taking for the 12/27/19 encounter (Office Visit) with David Waters CNP: ACCU-CHEK ELLI PLUS TEST STRP strips, by Miscellaneous route 2 (two) times a day TEST BLOOD SUGAR TWICE A DAY . albuterol (PROVENTIL) 2.5 mg /3 mL (0.083 %) nebulizer solution, Take 3 mL (2.5 mg total) by nebulization every 4 (four) hours as needed for wheezing . amLODIPine (NORVASC) 2.5 MG tablet, Take 1 (one) tablet (2.5 mg total) by mouth daily . aspirin 81 MG EC tablet, Take 81 mg by mouth daily . BD ULTRA-FINE SHORT PEN NEEDLE 31 gauge x 5/16" Ndle, USE DIRECTED TWICE DAILY WITH LANTUS DX: DMII/E11.9 calcium-vitamin D (calcium-vitamin D) 500 mg(1,250mg) -200 unit per tablet, Take 1 tablet by mouth 2 (two) times a day with meals . clopidogrel (PLAVIX) 75 mg tablet, Take 75 mg by mouth daily. cyanocobalamin (vitamin B-12) 1000 MCG tablet, Take 1,000 mcg by mouth daily. famotidine (PEPCID) 20 MG tablet, Take 20 mg by mouth 2 (two) times a day. fluticasone propion-salmeterol (Advair Diskus) 500-50 mcg/dose diskus inhaler, INHALE TWICE A DAY folic acid (FOLVITE) 1 MG tablet, Take 1 mg by mouth daily. isosorbide mononitrate (IMDUR) 30 MG 24 hr tablet, Take 30 mg by mouth daily . LANTUS SOLOSTAR 100 unit/mL (3 mL) InPn, INJECT 30 UNITS SUBCUTANEOUSLY TWICE A DAY lisinopril (PRINIVIL,ZESTRIL) 40 MG tablet, Take 40 mg by mouth daily . loratadine (CLARITIN) 10 mg tablet, Take 10 mg by mouth daily as needed for allergies. lovastatin (MEVACOR) 10 MG tablet, Take 10 mg by mouth nightly . metFORMIN (GLUCOPHAGE) 500 MG tablet, Take 500 mg by mouth 2 (two) times a day with meals. multivitamin with minerals tablet, Take 1 tablet by mouth daily. nitroGLYCERIN (NITROSTAT) 0.4 MG SL tablet, omeprazole (PRILOSEC) 20 MG capsule, Take 20 mg by mouth daily . oxyCODONE-acetaminophen (PERCOCET) 7.5-325 mg per tablet, Take 1 tablet by mouth every 8 (eight) hours as needed Takes 1/2 tab. pregabalin (LYRICA) 75 MG capsule, Take 50 mg by mouth 2 (two) times a day . propranolol (INDERAL LA) 80 MG 24 hr capsule, Take 1 (one) capsule (80 mg total) by mouth daily . sodium bicarbonate 650 MG tablet, Take 650 mg by mouth 2 (two) times a day. SPIRIVA WITH HANDIHALER 18 mcg inhalation capsule, Place 18 mcg into inhaler and inhale daily . VENTOLIN HFA 90 mcg/actuation inhaler, INHALE 2 PUFFS EVERY 4 HOURS NEEDED Review of Systems: Review of Systems Constitutional: Positive for fatigue. Negative for unexpected weight change. HENT: Negative for trouble swallowing. Eyes: Negative for visual disturbance. Respiratory: Negative for cough and shortness of breath. Cardiovascular: Negative for chest pain and leg swelling. Gastrointestinal: Negative for abdominal pain, constipation, diarrhea, nausea and vomiting. Endocrine: Negative for polydipsia, polyphagia and polyuria. Genitourinary: Negative for frequency and urgency. Musculoskeletal: Negative for arthralgias and back pain. Skin: Negative for wound. Neurological: Positive for weakness and numbness. Negative for headaches. Psychiatric/Behavioral: Negative for agitation and sleep disturbance. The patient is not nervous/anxious. The following portions of the patient's history were reviewed and updated as appropriate: allergies, current medications, past family history, past medical history, past social history, past surgicalhistory and problem list. Objective: BP (!) 171/84 Pulse 73 Ht 5' 7" Wt 68 kg (150 lb) BMI 23.49 kg/m Wt Readings from Last 3 Encounters: 12/27/19 68 kg (150 lb) 12/04/19 66.7 kg (147 lb) 10/24/19 66.7 kg (147 lb) Physical Exam: General: alert, appears stated age and cooperative Eyes: conjunctivae/corneas clear. PERRL, EOM's intact. Neck: no adenopathy, supple, symmetrical, trachea midline. Thyroid: No thyromegaly appreciated Lung: clear to auscultation bilaterally Heart: regular rate and rhythm, S1, S2 normal, no murmur, click, rub or gallop Extremities: extremities normal, atraumatic, no cyanosis or edema Feet: Dry skin, Bilateral Feet: warm, good capillary refill and normal DP. Monofilament exam Normal, bilateral lower extremities. Neuro: normal without focal findings, mental status, speech normal, alert and oriented x3 and HCERYL Laboratory Review: BP (!) 171/84 Pulse 73 Ht 5' 7" Wt 68 kg (150 lb) BMI 23.49 kg/m Lab Results Component Value Date HGBA1C 5.7 (H) 12/11/2019 Glucose (mg/dL) Date Value 12/11/2019 111 (H) Creatinine (mg/dL) Date Value 12/11/2019 1.04 06/05/2019 1.1 09/19/2018 1.14 Lab Results Component Value Date CHOL 169 12/11/2019 TRIG 198 (H) 12/11/2019 HDL 58 12/11/2019 LDLCALC 71 12/11/2019 Lab Results Component Value Date TSH 1.77 01/17/2019 Lab Results Component Value Date WBC 6.09 06/12/2019 HGB 12.7 (L) 12/11/2019 HCT 36.4 (L) 12/11/2019 MCV 106.3 (H) 06/12/2019 PLT 193 06/12/2019 Component Latest Ref Rng & Units 06/12/2019 07/05/2019 12/11/2019 WBC 4.50 - 11.00 K/mcL 6.09 HGB 13.5 - 17.5 g/dL 11.4 (L) 12.2 (L) 12.7 (L) HCT 41.0 - 53.0 % 33.9 (L) 35.6 (L) 36.4 (L) Platelets 150 - 400 K/mcL 193 POTASSIUM 3.5 - 5.1 mmol/L 3.9 4.1 3.8 CREATININE 0.80 - 1.30 mg/dL 1.26 1.12 1.04 eGFR >=60 mL/min/1.73 m2 57 (L) 66 72 BUN/Creatinine Ratio 10.0 - 20.0 15.9 9.6 (L) AST 0 - 45 U/L 27 31 ALT 14 - 65 U/L 38 33 CHOLESTEROL 100 - 199 mg/dL 181 169 Triglycerides 30 - 150 mg/dL 190 (H) 198 (H) HDL 40 - 59 mg/dL 50 58 CHOL/HDL RATIO ratio 3.6 2.9 LDL Calculated 10 - 130 mg/dL 93 71 Non HDL Chol. (LDL+VLDL) mg/dL 131 111 Creatinine, Ur mg/dL 56.8 64.9 Protein Creatinine Ratio 0.0 - 0.2 ratio 3.3 (H) 3.6 (H) Protein Urine Random mg/dL 185.9 230.8 Microalb, Ur 0.0 - 1.8 mg/dL 209.0 (H) Microalbumin/Creat Ratio 0 - 25 mg/g crea 3,220 (H) Creatinine, Ur, Random mg/dL 64.9 Hemoglobin A1C 4.0 - 5.6 % 5.7 (H) Estimated Average Glucose 68 - 114 mg/dL 117 (H) MAGNESIUM 1.6 - 2.4 mg/dL 1.5 (L) 1.2 (L) PHOSPHORUS 2.3 - 3.7 mg/dL 3.0 3.5 Assessment/Plan: Dx: 1. IDDM (insulin dependent diabetes mellitus) (HCC) BD Ultra-Fine Short Pen Needle 31 gauge x 5/16"Ndle Accu-Chek Elli Plus test strp strips blood-glucose meter Misc Comprehensive Metabolic Panel Hemoglobin A1c CBC and Differential Lipid Panel TSH T4, Free 2. Inadequately controlled diabetes mellitus (HCC) Ambulatory referral to Endocrinology 3. Dyslipidemia Type 2 diabetes, under fair control Currently taking: Metformin 500 mg twice daily Lantus insulin: 0-30 units at breakfast; 10-30 units at bedtime Current Hemoglobin A1C= Lab Results Component Value Date HGBA1C 5.7 (H) 12/11/2019 Weight trend: is stable Current diet: carb controlled Current exercise: none Current monitoring regimen: home blood tests - 2 times daily Home blood sugar records: Fasting B-412 Pre-lunch BG: Pre-supper B-400 Bedtime BG: Any episodes of hypoglycemia? yes - intermittently, especially if taking lantus >30 units daily. NOTES: Patient's last hgb A1c was 5.7%. Patient is currently on lantus he misses some doses. He takes between 10-30 units 1-3 times daily. PLAN: See below Retinopathy: Negative Exam within last 12 months: yes Date: 11/18 Refund Specialist/Technical Editor: Dr. Lepe Other Ophthalmologic Conditions: S/P Right cataract extraction with IOLI and S/P Left cataract extraction with IOLI Nephropathy: Positive Creat: 1.04 12/11/19. Follows with Dr. Clif Cheung every 6 months. Lab Results Component Value Date CREATININE 1.04 12/11/2019 EXTEGFR >=60 09/19/2018 EXTEGFRAFAME >=60 09/19/2018 Microlbumin/creat ratio: No results found for: EXTMICROALBC Is patient on MADELYN inhibitor or angiotensin II receptor danny? yes Lisinopril Peripheral Neuropathy: Positive Reports bilateral numbness and tingling in feet, Stable from previous, currently taking Lyrica 75 mg 2 times daily Autonomic Neuropathy: Negative Hypoglycemia unawareness. Senses low BG at <80 mg/dl. Other: Hyperlipidemia: Positive Currently taking: lovastatin (Mevacore). LFT's WNL Lab Results Component Value Date AST 31 12/11/2019 ALT 33 12/11/2019 No results found for: EXTCHOL, EXTTRIG, EXTHDL, EXTLDLCALC Hypertension: Positive. Currently taking: amlodipine (Norvasc) and lisinopril (Prinivil) BP: (!) 171/84 Cardiac: Positive Experiencing chest pain No . Experiencing shortness of breath No History of CAD, PVD Follows routinely with: Dr. Herrera Respiratory: Positive History of COPD, continues to smoke [address] Jesus Cruz. Vascular: Positive History of CVA 2009 Feet: Last foot exam: 12/27/19 Follows with Podiatry: No Decision Science Analyst: History of foot ulceration: No History of amputation: No Thyroid: Lab Results Component Value Date TSH 1.77 01/17/2019 Negative Other: Follows with Dr. Dewitt for chronic anemia. Plan: 1. Rx changes: Adjust medications as below Humalog insulin: 4 units at breakfast; 0 units at lunch; 4 units at supper Lantus insulin: 10 units at bedtime Sliding scale: Use as directed with humalog insulin before meals and at bedtime. 151-200: 1 units fast acting insulin 201-250: 2 units fast acting insulin 251-300: 3 units fast acting insulin 301-350: 4 units fast acting insulin 351-400: 5 units fast acting insulin above 400: 5 units fast acting insulin Metformin 500 mg twice daily 2. Education: Reviewed ABCs of diabetes management (respective goals in parentheses): A1C (7.0-8.0), blood pressure (<130/80), and cholesterol (LDL <100). Discussed disease process of type 2 DM Treatment of hypoglycemia Eating plans Insulin administrate, along with sliding scale usage. 3. Compliance at present is estimated to be fair. Efforts to improve compliance (if necessary) willbe directed at increased exercise and regular blood sugar monitorin times daily. Also, will be directed at dietary modifications: Limit portion sizes and Limit starches, carbohydrates and concentrated sugar sources 4. Follow up: 3 months 5. Record blood sugar readings as instructed. Call if BG consistently <70 or >250. [phone] Patient has been checking blood glucoses 2 times daily for the past 90 days. Patient needs to continue checking blood glucoses 4 times daily. Blood glucose readings are used to adjust medication or insulin doses for meals, monitor dietary compliance, and adjust for high or low blood glucoses by patient on a daily basis. Blood glucose readings are reviewed at office visits for adjustment in medication regimen and assistance with dietary management, and other self- management issues including exercise, etc. Prognosis: Good. Duration of need for diabetes testing equipment: Permanent #150 strips/month prescribed. 6. Bring blood sugar meter to follow up appointment. Orders Placed This Encounter Procedures Comprehensive Metabolic Panel Hemoglobin A1c CBC and Differential Lipid Panel TSH T4, Free documented in this encounter* Clair Joaquin - 04/14/2020 1:10 PM EDT [employer]otive [employer] Counter Person Care Note: [employer]otive [employer] Counter Person responded to Level 2 Trauma. Medical staff attending to patient upon arrival. No family present. Pastoral Care Team will remain available to support patient and family PRN. Chaplain Clair Joaquin MDiv [facility] Pastoral Care Department [phone] office [phone] pager [phone] on-call pager (after 5pm and weekends) 04/14/20 1310 Clinical Encounter Type Visit Type Crisis Crisis Visit Trauma 2;Stroke Alert Visited With Patient not available Visited By Other (comment) () Visit Length (minutes) 5 Referral From Trauma documented in this encounter* Aquiles Herrera MD - 11/23/2020 1:43 PM EST Telephone Visit Via Phone Call [facility] [address] ([address]) [facility] [address] [facility] [id number] Telephone Visit [facility] 11/23/2020 Aquiles Herrera MD Provider Location: [place] Patient Location Field Mechanic/Site Lead: None Patient Location: Patient's Home Patient: Stevo Elizalde Date of : 1950 (70 y.o. male) PCP: Phyllis Mae MD I discussed risks, benefits and alternatives of a telephone visit telemedicine consultation with the patient (and any accompanying persons) including the risks that the patient's personal health details and medical records will be discussed over real-time, synchronous, interactive audio technology,the visit will not be recorded without the express consent of both the provider and the patient, and that there are inherent diagnostic limitations compared to [id number] evaluations. We elected toproceed with the telephone visit telemedicine consultation. HPI Patient generally doing well. Unclear what his blood pressure and pulse are doing at home usually 140/79 heart rate of 70 today. Recheck to get 137/79 with a pulse of 109 shortly later. Denies any palpitations denies any chest pain sounds legs not getting much activity was due to the Covid. But no obvious chest pains. Medications reviewed. Did discuss caffeine try limited to 1 caffeinated beverage per day. Recent GFR improved to 55. Other laboratory reviewed. We will renew the Plavix. Continueson a very low-dose of a statin. Unclear if he could tolerate other statins. Cholesterol has gone up some since the Covid pandemic. We will continue the Mevacor for now. Certainly the future may consider more intense cholesterol medication. No known allergies listed. No change medication denies any chest pain stress test was normal in summer 2019. Repeat heart ratedown to 97. [place] any palpitation tachycardia repeat blood pressure 122/63. No changes follow-up in 6 months. The following portions of the patient's history were reviewed and updated as appropriate: He has a past medical history of Arthritis, Carotid artery occlusion, CKD (chronic kidney disease), COPD (chronic obstructive pulmonary disease) ([facility]), Diabetes mellitus ([facility]), Essential tremor, History of pneumonia, Hyperlipidemia, Hypertension, Leg cramps, Leg heaviness, MGUS (monoclonal gammopathy of unknown significance), Peptic ulcer disease, PVD (peripheral vascular disease) ([facility]), Rhabdomyolysis (2009), and Stroke ([facility]) (2009). He has a past surgical history that includes Hand surgery (Right, 2008); carotid angio (2009); pr thromboendartectmy neck,neck incis (Right, 2009); and Shoulder open rotator cuff repair (Left, 2014). He reports that he has been smoking cigarettes. He has a 27.50 pack-year smoking history. He has never used smokeless tobacco. He reports current alcohol use. He reports that he does not use drugs.. Review of Systems Patient's Medications New Prescriptions No medications on file Previous Medications ACCU-CHEK ELLI PLUS TEST STRP STRIPS Use to check BG 3x daily. DX code E11.9 on insulin . ALBUTEROL (PROVENTIL) 2.5 MG /3 ML (0.083 %) NEBULIZER SOLUTION Take 2.5 mg by nebulization every 4(four) hours as needed for wheezing . ALBUTEROL 90 MCG/ACTUATION INHALER Inhale 2 puffs every 4 (four) hours as needed for wheezing . AMLODIPINE (NORVASC) 2.5 MG TABLET Take 2.5 mg by mouth daily . BD ULTRA-FINE SHORT PEN NEEDLE 31 GAUGE X 5/16" NDLE Use as directed, 4 times daily. . BENZONATATE (TESSALON) 200 MG CAPSULE Take 200 mg by mouth 3 (three) times a day as needed for cough . BLOOD-GLUCOSE METER [facility] Accu-chek Elli plus meter. Use as directed 4 times daily. . BUSPIRONE (BUSPAR) 5 MG TABLET Take 5 mg by mouth 3 (three) times a day . CALCIUM-VITAMIN D (CALCIUM-VITAMIN D) 500 MG(1,250MG) -200 UNIT PER TABLET Take 1 tablet by mouth 2(two) times a day with meals . FAMOTIDINE (PEPCID) 20 MG TABLET Take 20 mg by mouth 2 (two) times a day . FLUTICASONE PROPION-SALMETEROL (WIXELA INHUB) 500-50 MCG/DOSE DISKUS INHALER Inhale 1 puff 2 (two) times a day . FOLIC ACID (FOLVITE) 1 MG TABLET Take 1 mg by mouth daily . INSULIN ASPART U-100 (NOVOLOG) 100 UNIT/ML INJECTION Inject under the skin 3 (three) times a day before meals . INSULIN GLARGINE (LANTUS) 100 UNIT/ML INJECTION Inject 30 Units under the skin 2 (two) times a day . ISOSORBIDE MONONITRATE (IMDUR) 30 MG 24 HR TABLET Take 30 mg by mouth daily . LISINOPRIL (PRINIVIL,ZESTRIL) 40 MG TABLET Take 40 mg by mouth daily . LORATADINE (CLARITIN) 10 MG TABLET Take 10 mg by mouth daily as needed for allergies. LOVASTATIN (MEVACOR) 10 MG TABLET Take 10 mg by mouth nightly . MAGNESIUM OXIDE 400 MG MAGNESIUM TAB Take by mouth 2 (two) times a day . METFORMIN (GLUCOPHAGE) 500 MG TABLET Take 500 mg by mouth 2 (two) times a day with meals . MULTIVITAMIN WITH MINERALS TABLET Take 1 tablet by mouth daily. NITROGLYCERIN (NITROSTAT) 0.4 MG SL TABLET OMEPRAZOLE (PRILOSEC) 20 MG CAPSULE Take 20 mg by mouth daily . PAROXETINE (PAXIL) 20 MG TABLET Take 20 mg by mouth daily . PREGABALIN (LYRICA) 75 MG CAPSULE Take 50 mg by mouth 2 (two) times a day . SODIUM BICARBONATE 650 MG TABLET Take 1,300 mg by mouth 2 (two) times a day . SPIRONOLACTONE (ALDACTONE) 25 MG TABLET Take 25 mg by mouth daily . TIOTROPIUM (SPIRIVA) [address] 18 mcg into inhaler and inhale daily . Modified Medications Modified Medication Previous Medication CLOPIDOGREL (PLAVIX) 75 MG TABLET clopidogreL (PLAVIX) 75 mg tablet Take 1 (one) tablet (75 mg total) by mouth daily . Take 1 (one) tablet (75 mg total) by mouth dailyStart: 06/16/20. PROPRANOLOL (INDERAL LA) 80 MG 24 HR CAPSULE propranoloL (INDERAL LA) 80 MG 24 hr capsule Take 1 (one) capsule (80 mg total) by mouth daily . Take 80 mg by mouth daily . Discontinued Medications CYANOCOBALAMIN (VITAMIN B-12) 1000 MCG TABLET Take 1,000 mcg by mouth daily. Assessment/Plan: Diagnoses and all orders for this visit: Abnormal stress test PAD (peripheral artery disease) ([facility]) PVD (peripheral vascular disease) ([facility]) Other orders - clopidogreL (PLAVIX) 75 mg tablet; Take 1 (one) tablet (75 mg total) by mouth daily . - propranoloL (INDERAL LA) 80 MG 24 hr capsule; Take 1 (one) capsule (80 mg total) by mouth daily . We have spent 21 minutes with the patient reviewing the HPI and Plan of Care. documented in this encounter* Erica Gardner PA-C - 08/03/2020 11:15 AM EDT Patient ID: Stevo Elizalde is a 70 y.o. male 1950 Subjective: Stevo Elizalde presents for evaluation of Type 2 diabetes Patient has had diabetes for 15 years. Diagnosed in 2004 Patient has taken Insulin for 10 years. Patient has been following with Dr. Carmelita MD. Mr. Elizalde is a 70-year-old male patient that presents today for follow-up in regards to his type 2diabetes. Patient was last seen in our office in November 2019 where his hemoglobin A1c was 5.7%. Patient did have a telehealth appointment with our office in March 2020. Patient currently takes basalinsulin, SS with meals, and metformin. He reports that BG are higher when he eats something high incarbohydrates. However, he states that they typically run within goal range. He states that he checks blood sugars approximately twice daily but did not bring BG logs in to be reviewed today. He denies any blood sugars less than 80 at this time. Patient states that his appetite has decreased and thus he only checks blood sugars when he is going to eat something. He reports needing sliding scale Humalog approximately once daily. Patient's hemoglobin A1c has remained stable at 5.9%. Currently taking: Metformin 500 mg twice daily Lantus insulin: 10 units at bedtime Sliding scale: Use as directed with Humalog insulin before meals and at bedtime. 151-200: 1 units fast acting insulin 201-250: 2 units fast acting insulin 251-300: 3 units fast acting insulin 301-350: 4 units fast acting insulin 351-400: 5 units fast acting insulin above 400: 5 units fast acting insulin *Patient only takes meal time insulin approx once a day. Outpatient Medications Marked as Taking for the 08/03/20 encounter (Office Visit) with Erica Gardner PA-C: Accu-Chek Elli Plus test strp strips, Use to check BG 3x daily. DX code E11.9 on insulin . albuterol (PROVENTIL) 2.5 mg /3 mL (0.083 %) nebulizer solution, Take 2.5 mg by nebulization every 4 (four) hours as needed for wheezing . albuterol 90 mcg/actuation inhaler, Inhale 2 puffs every 4 (four) hours as needed for wheezing . amLODIPine (NORVASC) 2.5 MG tablet, Take 2.5 mg by mouth daily . azithromycin (ZITHROMAX) 250 MG tablet, Take two on day one, then one daily for four more days . BD Ultra-Fine Short Pen Needle 31 gauge x 5/16" Ndle, Use as directed, 4 times daily. . blood-glucose meter Misc, Accu-chek Elli plus meter. Use as directed 4 times daily. . busPIRone (BUSPAR) 5 MG tablet, Take 5 mg by mouth 3 (three) times a day . clopidogreL (PLAVIX) 75 mg tablet, Take 1 (one) tablet (75 mg total) by mouth daily Start: 06/16/20. cyanocobalamin (vitamin B-12) 1000 MCG tablet, Take 1,000 mcg by mouth daily. famotidine (PEPCID) 20 MG tablet, Take 20 mg by mouth 2 (two) times a day . fluticasone propion-salmeteroL (Wixela Inhub) 500-50 mcg/dose diskus inhaler, Inhale 1 puff 2 (two)times a day . folic acid (FOLVITE) 1 MG tablet, Take 1 mg by mouth daily . insulin aspart U-100 (NovoLOG) 100 unit/mL injection, Inject under the skin 3 (three) times a day before meals . insulin glargine (LANTUS) 100 unit/mL injection, Inject 30 Units under the skin 2 (two) times a day. isosorbide mononitrate (IMDUR) 30 MG 24 hr tablet, Take 30 mg by mouth daily . lisinopriL (PRINIVIL,ZESTRIL) 40 MG tablet, Take 40 mg by mouth daily . loratadine (CLARITIN) 10 mg tablet, Take 10 mg by mouth daily as needed for allergies. lovastatin (MEVACOR) 10 MG tablet, Take 10 mg by mouth nightly . magnesium oxide 400 mg magnesium Tab, Take by mouth 2 (two) times a day . metFORMIN (GLUCOPHAGE) 500 MG tablet, Take 500 mg by mouth 2 (two) times a day with meals . multivitamin with minerals tablet, Take 1 tablet by mouth daily. nitroGLYCERIN (NITROSTAT) 0.4 MG SL tablet, omeprazole (PRILOSEC) 20 MG capsule, Take 20 mg by mouth daily . PARoxetine (PAXIL) 20 MG tablet, Take 20 mg by mouth daily . pregabalin (LYRICA) 75 MG capsule, Take 50 mg by mouth 2 (two) times a day . propranoloL (INDERAL LA) 80 MG 24 hr capsule, Take 80 mg by mouth daily . sodium bicarbonate 650 MG tablet, Take 1,300 mg by mouth 2 (two) times a day . spironolactone (ALDACTONE) 25 MG tablet, Take 25 mg by mouth daily . tiotropium (SPIRIVA) 18 mcg inhalation capsule, Place 18 mcg into inhaler and inhale daily . Review of Systems: Review of Systems Constitutional: Positive for fatigue. Negative for unexpected weight change. HENT: Negative for trouble swallowing. Eyes: Negative for visual disturbance. Respiratory: Negative for cough and shortness of breath. Cardiovascular: Negative for chest pain and leg swelling. Gastrointestinal: Negative for abdominal pain, constipation, diarrhea, nausea and vomiting. Endocrine: Negative for polydipsia, polyphagia and polyuria. Genitourinary: Negative for frequency and urgency. Musculoskeletal: Negative for arthralgias and back pain. Skin: Negative for wound. Neurological: Positive for weakness and numbness. Negative for headaches. Psychiatric/Behavioral: Negative for agitation and sleep disturbance. The patient is not nervous/anxious. The following portions of the patient's history were reviewed and updated as appropriate: allergies, current medications, past family history, past medical history, past social history, past surgicalhistory and problem list. Objective: BP 135/78 Pulse 81 Ht 5' 7" Wt 66.2 kg (146 lb) BMI 22.87 kg/m Wt Readings from Last 3 Encounters: 08/03/20 66.2 kg (146 lb) 06/10/20 68 kg (150 lb) 04/28/20 68 kg (149 lb 14.6 oz) Physical Exam: General: alert, appears stated age and cooperative Eyes: conjunctivae/corneas clear. PERRL, EOM's intact. Neck: no adenopathy, supple, symmetrical, trachea midline. Thyroid: No thyromegaly appreciated Lung: clear to auscultation bilaterally Heart: regular rate and rhythm, S1, S2 normal, no murmur, click, rub or gallop Extremities: extremities normal, atraumatic, no cyanosis or edema Feet: Dry skin, Bilateral Feet: warm, good capillary refill and normal DP. Monofilament exam Normal, bilateral lower extremities. Neuro: normal without focal findings, mental status, speech normal, alert and oriented x3 and CHERYL Laboratory Review: BP 135/78 Pulse 81 Ht 5' 7" Wt 66.2 kg (146 lb) BMI 22.87 kg/m Lab Results Component Value Date HGBA1C 5.9 (H) 07/28/2020 Glucose (mg/dL) Date Value 07/28/2020 116 (H) Creatinine (mg/dL) Date Value 07/28/2020 1.68 (H) 06/05/2019 1.1 09/19/2018 1.14 Lab Results Component Value Date CHOL 178 07/28/2020 TRIG 317 (H) 07/28/2020 HDL 40 07/28/2020 LDLCALC 75 07/28/2020 Lab Results Component Value Date TSH 1.07 07/28/2020 Lab Results Component Value Date WBC 5.30 07/28/2020 HGB 13.6 07/28/2020 HCT 39.6 (L) 07/28/2020 MCV 111.5 (H) 07/28/2020 PLT 170 07/28/2020 Component Latest Ref Rng & Units 06/12/2019 07/05/2019 12/11/2019 WBC 4.50 - 11.00 K/mcL 6.09 HGB 13.5 - 17.5 g/dL 11.4 (L) 12.2 (L) 12.7 (L) HCT 41.0 - 53.0 % 33.9 (L) 35.6 (L) 36.4 (L) Platelets 150 - 400 K/mcL 193 POTASSIUM 3.5 - 5.1 mmol/L 3.9 4.1 3.8 CREATININE 0.80 - 1.30 mg/dL 1.26 1.12 1.04 eGFR >=60 mL/min/1.73 m2 57 (L) 66 72 BUN/Creatinine Ratio 10.0 - 20.0 15.9 9.6 (L) AST 0 - 45 U/L 27 31 ALT 14 - 65 U/L 38 33 CHOLESTEROL 100 - 199 mg/dL 181 169 Triglycerides 30 - 150 mg/dL 190 (H) 198 (H) HDL 40 - 59 mg/dL 50 58 CHOL/HDL RATIO ratio 3.6 2.9 LDL Calculated 10 - 130 mg/dL 93 71 Non HDL Chol. (LDL+VLDL) mg/dL 131 111 Creatinine, Ur mg/dL 56.8 64.9 Protein Creatinine Ratio 0.0 - 0.2 ratio 3.3 (H) 3.6 (H) Protein Urine Random mg/dL 185.9 230.8 Microalb, Ur 0.0 - 1.8 mg/dL 209.0 (H) Microalbumin/Creat Ratio 0 - 25 mg/g crea 3,220 (H) Creatinine, Ur, Random mg/dL 64.9 Hemoglobin A1C 4.0 - 5.6 % 5.7 (H) Estimated Average Glucose 68 - 114 mg/dL 117 (H) MAGNESIUM 1.6 - 2.4 mg/dL 1.5 (L) 1.2 (L) PHOSPHORUS 2.3 - 3.7 mg/dL 3.0 3.5 07/28/2020 Hemoglobin A1c: 5.9% Creat: 1.68, eGFR: 40 K: 4.6 AST: 20, ALT: 24 Tot chol: 178, T, HDL: 40, LDL: 75 WBC: 5.30, Hgb: 13.6, Hct: 39.6, Plt: 170 TSH: 1.07, Free T4: 1.0 Micro/creat: 380 Assessment/Plan: Dx: 1. Inadequately controlled diabetes mellitus (HCC) Hemoglobin A1c Comprehensive Metabolic Panel Lipid Panel 2. Dyslipidemia Lipid Panel Type 2 diabetes, under fair control Currently taking: Metformin 500 mg twice daily Lantus insulin: 10 units at bedtime Sliding scale: Use as directed with Humalog insulin before meals and at bedtime. 151-200: 1 units fast acting insulin 201-250: 2 units fast acting insulin 251-300: 3 units fast acting insulin 301-350: 4 units fast acting insulin 351-400: 5 units fast acting insulin above 400: 5 units fast acting insulin *Patient only takes meal time insulin approx once a day. Current Hemoglobin A1C= Lab Results Component Value Date HGBA1C 5.9 (H) 07/28/2020 HGBA1C 5.9 (H) 04/01/2020 HGBA1C 5.7 (H) 12/11/2019 Weight trend: is stable Current diet: carb controlled Current exercise: none Current monitoring regimen: home blood tests - 2 times daily Home blood sugar records: None to be reviewed Fasting BG: Pre-lunch BG: Pre-supper BG: Bedtime BG: Any episodes of hypoglycemia? None as of recently NOTES: Patient's last hgb A1c was 5.9% on basal insulin, sliding scale with meal, metformin. PLAN: See below Retinopathy: Negative Exam within last 12 months: yes Date: 11/18 Refund Specialist/Technical Editor: Dr. Lepe Other Ophthalmologic Conditions: S/P Right cataract extraction with IOLI and S/P Left cataract extraction with IOLI Nephropathy: Positive Creat: 1.68, eGFR: 40 06/2020. Follows with Dr. Clif Cheung every 6 months. Lab Results Component Value Date CREATININE 1.68 (H) 07/28/2020 EXTEGFR >=60 09/19/2018 EXTEGFRAFAME >=60 09/19/2018 Microlbumin/creat ratio: No results found for: EXTMICROALBC Is patient on MADELYN inhibitor or angiotensin II receptor danny? yes Lisinopril Peripheral Neuropathy: Positive Reports bilateral numbness and tingling in feet, Stable from previous, currently taking Lyrica 75 mg 2 times daily Autonomic Neuropathy: Negative Hypoglycemia unawareness. Senses low BG at <80 mg/dl. Other: Hyperlipidemia: Positive Currently taking: lovastatin (Mevacore). LFT's WNL 06/2020: Tot chol: 178, T, HDL: 40, LDL: 75 Plan: Patient was instructed to consume a heart healthy low-cholesterol diet to help with triglycerides at this time. We will recheck lipid panel prior to next appointment. Lab Results Component Value Date AST 07/28/2020 ALT 24 07/28/2020 No results found for: EXTCHOL, EXTTRIG, EXTHDL, EXTLDLCALC Hypertension: Positive. Currently taking: amlodipine (Norvasc) and lisinopril (Prinivil) BP: 135/78 Cardiac: Positive Experiencing chest pain No . Experiencing shortness of breath No History of CAD, PVD Follows routinely with: Dr. Herrera, last seen in 03/2020. Biannual follow-up Respiratory: Positive History of COPD, continues to smoke [address] Jesus Cruz. Vascular: Positive History of CVA 2009 Feet: Last foot exam: 08/03/20 Follows with Podiatry: No Decision Science Analyst: History of foot ulceration: No History of amputation: No Thyroid: Lab Results Component Value Date TSH 1.07 07/28/2020 Negative Other: Follows with Dr. Dewitt for chronic anemia. Plan: 1. Rx changes: Adjust medications as below Lantus insulin: 6 units at bedtime Sliding scale: Use as directed with humalog insulin before meals and at bedtime. 151-200: 1 units fast acting insulin 201-250: 2 units fast acting insulin 251-300: 3 units fast acting insulin 301-350: 4 units fast acting insulin 351-400: 5 units fast acting insulin Metformin 500 mg twice daily The above changes were made to patient's current insulin regimen as his hemoglobin A1c is 5.9%. Patient denies any recent hypoglycemia but based off his hemoglobin A1c I am concerned he is having anywithout knowing. Patient was instructed to continue to check blood sugars approximately 3-4 times daily and report them to our office once weekly so that further adjustments can be made as necessary. 2. Education: Reviewed ABCs of diabetes management (respective goals in parentheses): A1C (7.0-8.0), blood pressure (<130/80), and cholesterol (LDL <100). Discussed disease process of type 2 DM Treatment of hypoglycemia Eating plans Insulin administrate, along with sliding scale usage. 3. Compliance at present is estimated to be fair. Efforts to improve compliance (if necessary) willbe directed at increased exercise and regular blood sugar monitorin times daily. Also, will be directed at dietary modifications: Limit portion sizes and Limit starches, carbohydrates and concentrated sugar sources 4. Follow up: 3 months 5. Record blood sugar readings as instructed. Call if BG consistently <70 or >250. [phone] Patient has been checking blood glucoses 2 times daily for the past 90 days. Patient needs to continue checking blood glucoses 4 times daily. Blood glucose readings are used to adjust medication or insulin doses for meals, monitor dietary compliance, and adjust for high or low blood glucoses by patient on a daily basis. Blood glucose readings are reviewed at office visits for adjustment in medication regimen and assistance with dietary management, and other self- management issues including exercise, etc. Prognosis: Good. Duration of need for diabetes testing equipment: Permanent #150 strips/month prescribed. 6. Bring blood sugar meter to follow up appointment. Orders Placed This Encounter Procedures Hemoglobin A1c Comprehensive Metabolic Panel Lipid Panel Electronically signed by Erica Gardner PA-C 08/03/2020 1:45 PM documented in this encounter* Cameron Munguia III, - 12/04/2019 12:59 PM EST Assessment & Plan: 1. Left carotid artery stenosis Carotid Duplex 2. Stenosis of left iliac artery (HCC) 3. History of carotid endarterectomy Carotid Duplex 4. Neurogenic claudication Plan: At the present time, Mr. Elizalde is stable regarding his carotid disease and lower extremity arterial (left iliac) stenosis. I think his symptomatology of claudication is much more attributable to neurogenic etiology since his Doppler study shows only minimal left-sided disease. His left carotid stenosis is stable from his previous study, and I feel continued follow-up in 1 year is appropriate. Abiola keep you informed and see him after his next visit in 1 year with carotid duplex scans at thattime. If there are any questions or problems, he is to contact us. We will keep you informed, and we appreciate the opportunity to participate in his care. Follow Up Ordered: Return in about 1 year (around 12/04/2020) for Recheck with testing with Jo Montenegro NP. Subjective: Stevo Elizalde is a 69 y.o. male seen in the office today for follow up regarding carotid artery disease and left iliac artery stenosis. Mr. Elizalde (birthday 1950) was seen in the office on December 04, 2019. It has been approximately 1 year since he was seen last. He has a known history of carotid disease. He underwent right carotid endarterectomy in 2009, and has had moderate left carotid disease is since that time. He deniesany TIAs or amaurosis or evidence of neurologic symptoms. He does complain of occasional leg cramping in both legs. He says both legs seem to be heavy especially during the day. He denies any ulcers or tissue loss or gangrene of the lower extremities. He does have a known history of left iliac artery stenosis identified on aortic duplex scan which showed no evidence of aneurysmal disease. He did undergo carotid duplex scan in the office today prior to seeing me, as well as undergoing a lower extremity arterial Doppler study for baseline vascular evaluation prior to seeing me today. He continues to tolerate his medication satisfactorily (including statins and antiplatelet therapy). Histories: Past Medical History: Diagnosis Date Arthritis Carotid artery occlusion CKD (chronic kidney disease) Stage III Claudication ([facility]) COPD (chronic obstructive pulmonary disease) ([facility]) Diabetes mellitus ([facility]) Essential tremor History of pneumonia Hyperlipidemia Hypertension Leg cramps Leg heaviness MGUS (monoclonal gammopathy of unknown significance) Peptic ulcer disease PVD (peripheral vascular disease) ([facility]) Rhabdomyolysis 2010 Stroke ([facility]) 2010 R side Past Surgical History: Procedure Laterality Date carotid angio 2010 HAND SURGERY Right 2009 MT THROMBOENDARTECTMY NECK,NECK INCIS Right 2009 SHOULDER OPEN ROTATOR CUFF REPAIR Left 2015 Family History Problem Relation Age of Onset Heart attack Father Diabetes Sister Heart attack Sister Stroke Sister Hypertension Sister Deep vein thrombosis Sister leg Ovarian cancer Sister Heart attack Brother Cancer Maternal Grandfather Cancer Paternal Grandmother Cancer Maternal Uncle Heart disease Sister Heart disease Sister Social History Tobacco Use Smoking status: Current Every Day Smoker Packs/day: 1.00 Years: 55.00 Pack years: 55.00 Types: Cigarettes Smokeless tobacco: Never Used Tobacco comment: Former 3-4 ppd 40 years Substance Use Topics Alcohol use: Yes Comment: occasional Drug use: No Current Outpatient Medications Medication Sig Dispense Refill ACCU-CHEK ELLI PLUS TEST STRP strips by Miscellaneous route 2 (two) times a day TEST BLOOD SUGAR TWICE A DAY . 11 albuterol (PROVENTIL) 2.5 mg /3 mL (0.083 %) nebulizer solution Take 3 mL (2.5 mg total) by nebulization every 4 (four) hours as needed for wheezing . 120 mL 11 amLODIPine (NORVASC) 2.5 MG tablet Take 1 (one) tablet (2.5 mg total) by mouth daily . 30 tablet 11 aspirin 81 MG EC tablet Take 81 mg by mouth daily . BD ULTRA-FINE SHORT PEN NEEDLE 31 gauge x 5/16" Ndle USE DIRECTED TWICE DAILY WITH LANTUS DX: DMII/E11.9 11 calcium-vitamin D (calcium-vitamin D) 500 mg(1,250mg) -200 unit per tablet Take 1 tablet by mouth 2(two) times a day with meals . clopidogrel (PLAVIX) 75 mg tablet Take 75 mg by mouth daily. cyanocobalamin (vitamin B-12) 1000 MCG tablet Take 1,000 mcg by mouth daily. famotidine (PEPCID) 20 MG tablet Take 20 mg by mouth 2 (two) times a day. fluticasone propion-salmeterol (Advair Diskus) 500-50 mcg/dose diskus inhaler INHALE TWICE A DAY 3 each 3 folic acid (FOLVITE) 1 MG tablet Take 1 mg by mouth daily. isosorbide mononitrate (IMDUR) 30 MG 24 hr tablet Take 30 mg by mouth daily . LANTUS SOLOSTAR 100 unit/mL (3 mL) InPn INJECT 30 UNITS SUBCUTANEOUSLY TWICE A DAY 11 lisinopril (PRINIVIL,ZESTRIL) 40 MG tablet Take 40 mg by mouth daily . loratadine (CLARITIN) 10 mg tablet Take 10 mg by mouth daily as needed for allergies. lovastatin (MEVACOR) 10 MG tablet Take 10 mg by mouth nightly . metFORMIN (GLUCOPHAGE) 500 MG tablet Take 500 mg by mouth 2 (two) times a day with meals. multivitamin with minerals tablet Take 1 tablet by mouth daily. omeprazole (PRILOSEC) 20 MG capsule Take 20 mg by mouth daily . oxyCODONE-acetaminophen (PERCOCET) 7.5-325 mg per tablet Take 1 tablet by mouth every 8 (eight) hours as needed Takes 1/2 tab. pregabalin (LYRICA) 75 MG capsule Take 50 mg by mouth 2 (two) times a day . propranolol (INDERAL LA) 80 MG 24 hr capsule Take 1 (one) capsule (80 mg total) by mouth daily . 30capsule 11 sodium bicarbonate 650 MG tablet Take 650 mg by mouth 2 (two) times a day. SPIRIVA WITH HANDIHALER [address] 18 mcg into inhaler and inhale daily . VENTOLIN HFA 90 mcg/actuation inhaler INHALE 2 PUFFS EVERY 4 HOURS NEEDED 18 Inhaler 11 No current facility-administered medications for this visit. Allergies Allergen Reactions Chantix [Varenicline] Swelling ROS Objective: Vitals: Vitals: 12/04/19 1458 12/04/19 1511 12/04/19 1520 BP: (!) 173/84 (!) 180/83 (!) 163/84 BP Location: Right arm Patient Position: Sitting Pulse: (!) 56 Weight: 66.7 kg (147 lb) Height: 5' 7" Physical Exam Constitutional: He is oriented to person, place, and time. He appears well- developed and well-nourished. He is cooperative. HENT: Head: Normocephalic and atraumatic. Right Ear: External ear normal. Left Ear: External ear normal. Eyes: Lids are normal. Neck: Normal range of motion. Neck supple. Normal carotid pulses and no JVD present. Carotid bruit is not present. Right neck incision is healed well. No signs of infection or cellulitis is noted. Cardiovascular: Normal rate, regular rhythm and normal heart sounds. No murmur heard. Pulses: Carotid pulses are 2+ on the right side and 2+ on the left side. Femoral pulses are 2+ on the right side and 1+ on the left side. Popliteal pulses are 2+ on the right side and 1+ on the left side. Dorsalis pedis pulses are 2+ on the right side and 1+ on the left side. Posterior tibial pulses are 2+ on the right side and 0 on the left side. Good capillary filling is noted bilateral feet and toes. Pulmonary/Chest: Effort normal. Chest wall is not dull to percussion. He exhibits no mass. Abdominal: Soft. Normal appearance and bowel sounds are normal. Musculoskeletal: Thoracic back: He exhibits decreased range of motion. Lumbar back: He exhibits decreased range of motion. Neurological: He is alert and oriented to person, place, and time. He has normal strength. He is not disoriented. A sensory deficit (Decreased sensations noted bilateral feet and toes consistent withdiabetic neuropathy.) is present. No cranial nerve deficit. Gait normal. Skin: Skin is warm, dry and intact. He is not diaphoretic. No cyanosis. No pallor. Nails show no clubbing. Hair loss pattern changes are noted bilateral extremities. Psychiatric: He has a normal mood and affect. His speech is normal and behavior is normal. Thought content normal. Lab Review: The following labs were reviewed and within the chart Carotid duplex scan performed in the office on December 04, 2019 indicates no evidence of right carotid artery stenosis (0%) and moderate left carotid artery stenosis (50-69%). The left ICA peak systolic velocity is 162 cm/s, in the left ICA peak end-diastolic velocity is 57 cm/s. The left ICA/CCA systolic ratio 2.22. This is essentially unchanged from his previous study in October 2018. Lower extremity arterial Doppler study with segmental pressures and PVR waveforms performed in the office on December 04, 2019 indicates normal resting right leg CLEMENCIA (1.17) and mild left leg arterial disease with an CLEMENCIA of 0.86. Waveform patterns suggest left iliofemoral stenotic disease, with normal right leg waveforms to the foot.. documented in this encounter* Cameron Munguia III, DO - 11/28/2018 12:54 PM EST Assessment & Plan: SNOMED CT(R) 1. Stenosis of left carotid artery LEFT CAROTID ARTERY STENOSIS Ambulatory referral to Vascular Surgery 2. History of right-sided carotid endarterectomy HISTORY OF CAROTID ENDARTERECTOMY Ambulatory referral to Vascular Surgery 3. Claudication of lower extremity (HCC) INTERMITTENT CLAUDICATION Segmental Doppler Lower Extremity Arterial W Exercise 4. Stenosis of left iliac artery (HCC) ILIAC ARTERY STENOSIS Segmental Doppler Lower Extremity Arterial W Exercise Plan: At the present time, Mr. Elizalde is stable with regards to his carotid disease as well as lower extremity arterial disease. I reviewed the carotid duplex scan and abdominal duplex scan results with him today. From my perspective his biggest effort needs to be working towards quitting smoking. I think his symptoms of claudication are more attributable neurologic and musculoskeletal issues (bilateral hip symptoms) rather than unilateral iliac disease. There is no evidence of critical limb ischemia. He is lifestyle is not significantly limited based upon his claudication symptoms. Therefore, (since he is still smoking) we will hold off any aggressive surgical or interventional therapies at the present time. We will see him back in 1 year with a carotid duplex scan at that time. We will also obtain lower extremity atrial Doppler study to help monitor his vascular status. If symptoms deteriorate, or he has questions or he wants to pursue a more aggressive approach, he is to contact us. We will keep you informed after his next visit in 1 year (my PA (Lashonda Jules)). If you have any questions please contact us. We appreciate the opportunity to participate in his care. Follow Up Ordered: Return in about 1 year (around 11/28/2019) for Recheck with testing. Subjective: Stevo Elizalde is a 68 y.o. male seen in the office today for follow up regarding carotid artery disease. Mr. Elizalde (birthday 1950) was seen in the office today on November 28, 2018. 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 Herrera). He had undergone a carotid duplex scan and abdominal aortic duplex scan on November 18, 2018. Mr. Elizalde had been seen in our office in the past. He was last seen in April 2017. He was scheduled to be seen in March 2018, but canceled that visit. He is a long-term smoker (1 pack a day). He had been seen by Dr. Menjivar in the [place] office, but that is been several months if not years since he was last seen by the physician. He is approximately 9 years status post right carotid endarterectomy. He denies any new TIAs or amaurosis. He does state that both h ips bother him when he walks distances (equally). He does have a history of back and degenerative disc disease as well as arthritis. He states that if he thinks about it and looks that his ambulationsymptoms more closely, he feels that his left leg is probably slightly more severe than his right leg. He denies any ulcers, tissue loss, gangrene, evidence of critical limb ischemia. He denies any significant limitations of his lifestyle or activities. Histories: Past Medical History: Diagnosis Date Arthritis Carotid artery occlusion CKD (chronic kidney disease) Stage III Claudication ([facility]) COPD (chronic obstructive pulmonary disease) ([facility]) Diabetes mellitus ([facility]) Essential tremor History of pneumonia Hyperlipidemia Hypertension Leg cramps MGUS (monoclonal gammopathy of unknown significance) Peptic ulcer disease PVD (peripheral vascular disease) ([facility]) Rhabdomyolysis 2010 Stroke ([facility]) 2010 R side Past Surgical History: Procedure Laterality Date carotid angio 2010 HAND SURGERY Right 2009 MT THROMBOENDARTECTMY NECK,NECK INCIS Right 2009 SHOULDER OPEN ROTATOR CUFF REPAIR Left 2014 Family History Problem Relation Age of Onset Heart attack Father Diabetes Sister Heart attack Sister Stroke Sister Hypertension Sister Deep vein thrombosis Sister leg Heart attack Brother Cancer Maternal Grandfather Cancer Paternal Grandmother Cancer Maternal Uncle Heart disease Sister Social History Tobacco Use Smoking status: Current Every Day Smoker Packs/day: 1.00 Years: 55.00 Pack years: 55.00 Types: Cigarettes Smokeless tobacco: Never Used Tobacco comment: Former 3-4 ppd 40 years Substance Use Topics Alcohol use: Yes Comment: occasional Drug use: No Current Outpatient Medications Medication Sig Dispense Refill aclidinium bromide 400 mcg/actuation AePB Inhale 2 (two) times a day Ozzy. ADVAIR DISKUS 500-50 mcg/dose diskus inhaler INHALE TWICE A DAY 1 Inhaler 11 albuterol (PROVENTIL) 2.5 mg /3 mL (0.083 %) nebulizer solution Take 2.5 mg by nebulization every 4(four) hours as needed for wheezing. calcium-vitamin D (calcium-vitamin D) 500 mg(1,250mg) -200 unit per tablet Take 1 tablet by mouth 2(two) times a day with meals . clopidogrel (PLAVIX) 75 mg tablet Take 75 mg by mouth daily. cyanocobalamin (vitamin B-12) 1000 MCG tablet Take 1,000 mcg by mouth daily. diphenoxylate-atropine (LOMOTIL) 2.5-0.025 mg per tablet Take 1 tablet by mouth as needed for diarrhea. famotidine (PEPCID) 20 MG tablet Take 20 mg by mouth 2 (two) times a day. folic acid (FOLVITE) 1 MG tablet Take 1 mg by mouth daily. gemfibrozil (LOPID) 600 MG tablet Take 600 mg by mouth 2 (two) times a day. LANTUS SOLOSTAR 100 unit/mL (3 mL) InPn INJECT 30 UNITS SUBCUTANEOUSLY TWICE A DAY 11 lisinopril (PRINIVIL,ZESTRIL) 20 MG tablet Take 40 mg by mouth daily . loratadine (CLARITIN) 10 mg tablet Take 10 mg by mouth daily as needed for allergies. metFORMIN (GLUCOPHAGE) 500 MG tablet Take 500 mg by mouth 2 (two) times a day with meals. multivitamin with minerals tablet Take 1 tablet by mouth daily. ondansetron (ZOFRAN) 4 MG tablet Take 4 mg by mouth every 4 (four) hours as needed for nausea . oxyCODONE-acetaminophen (PERCOCET) 7.5-325 mg per tablet Take 1 tablet by mouth every 8 (eight) hours as needed Takes 1/2 tab. pantoprazole (PROTONIX) 40 MG tablet Take 40 mg by mouth daily. pregabalin (LYRICA) 75 MG capsule Take 50 mg by mouth 2 (two) times a day . propranolol (INDERAL) 20 MG tablet Take 20 mg by mouth 2 (two) times a day. sodium bicarbonate 650 MG tablet Take 650 mg by mouth 2 (two) times a day. SPIRIVA WITH HANDIHALER 18 mcg inhalation capsule VENTOLIN HFA 90 mcg/actuation inhaler INHALE 2 PUFFS EVERY 4 HOURS NEEDED 18 Inhaler 11 No current facility-administered medications for this visit. Allergies Allergen Reactions Chantix [Varenicline] Swelling ROS Objective: Vitals: Vitals: 11/28/18 1250 11/28/18 1253 BP: 132/82 121/79 BP Location: Right arm Left arm Patient Position: Sitting Sitting BP Cuff Size: Adult Pulse: 83 Weight: 67.6 kg (149 lb) Height: 5' 7" Physical Exam Constitutional: He is oriented to person, place, and time. Vital signs are normal. He appears well-developed and well-nourished. He is cooperative. No distress. HENT: Head: Normocephalic and atraumatic. Right Ear: External ear normal. Left Ear: External ear normal. Eyes: Lids are normal. Neck: Normal range of motion. Neck supple. Normal carotid pulses and no JVD present. Carotid bruit is not present. Right neck incision is healed well. No signs of infection or cellulitis is noted. Cardiovascular: Normal rate, regular rhythm and normal heart sounds. No murmur heard. Pulses: Carotid pulses are 2+ on the right side, and 2+ on the left side. Femoral pulses are 2+ on the right side, and 1+ on the left side. Popliteal pulses are 2+ on the right side, and 0 on the left side. Dorsalis pedis pulses are 2+ on the right side, and 0 on the left side. Posterior tibial pulses are 2+ on the right side, and 0 on the left side. Good capillary filling is noted bilateral feet and toes. Pulmonary/Chest: Effort normal. He has decreased breath sounds in the right lower field and the left lower field. He has no wheezes. He has no rhonchi. He has no rales. Chest wall is not dull to percussion. He exhibits no mass. Abdominal: Soft. Normal appearance and bowel sounds are normal. Musculoskeletal: Thoracic back: He exhibits decreased range of motion. Lumbar back: He exhibits decreased range of motion. Neurological: He is alert and oriented to person, place, and time. He has normal strength. He is not disoriented. A sensory deficit (Decreased sensations noted bilateral feet and toes consistent withdiabetic neuropathy.) is present. No cranial nerve deficit. Skin: Skin is warm, dry and intact. He is not diaphoretic. No cyanosis. No pallor. Nails show no clubbing. Hair loss pattern changes are noted bilateral extremities. Psychiatric: He has a normal mood and affect. His speech is normal and behavior is normal. Thought content normal. Lab Review: The following labs were reviewed and within the chart Carotid duplex scan performed on November 18, 2018 indicates no evidence of right internal carotid stenosis (0%) and moderate left carotid artery stenosis (50- 69%). This is unchanged from his previousstudy in April 2018. Abdominal aortic duplex scan performed on November 18, 2018 shows no evidence of infrarenal abdominal aortic aneurysm or iliac aneurysm (bilaterally). Incidental finding of high-grade left common iliac stenosis is identified (greater than 50%) with a peak systolic velocity of 438 cm/s. in this encounter* Guillermo Dewitt MD - 01/25/2019 9:17 AM EDT CLINIC FOLLOW UP PATIENT: Stevo Elizalde : 1950 AGE: 68 y.o. SEX: male RACE: [1] PCP: Phyllis Mae MD REFERRAL: No ref. provider found HPI Returns in f/u. Reports multiple joint pains especially neck and lower back and is being evaluated by Dr Moura and has received epidural shots. Reports continuing to smoke cigarettes , uses alcohol several times a week. Denies any evidence of blood in the stool or black stool HEMATOLOGIC HX Has been a diabetic for 10 years, under control for the most part ,followed by Dr Rochelle Cheung for chronic renal insufficiency. Has also been noted to have anemia with macrocytosis. 08/17/2017 BUN/creatinine 28/1.36 calcium 9 vitamin B12 825, folate more than 20, serum free light chains elevated however ratio is completely normal, normal serum protein electrophoresis pattern noted, serum immunofixation is normal. Reticulocyte count 1.44 08/30/2017 skeletal survey indicates healed fractures involving the bilateral ribs. ( h/o remote trauma) 12/18/2017 endoscopy performed at [facility] by indicates no abnormality, colonoscopy demonstrates the prostate to be 2+ non nodular, sessile 3 mm polyp within the proximal ascending colon. 12/20/2017 H&H is 12.1/35, MCV is 102.4, serum protein electrophoresis demonstrates a normal pattern, serum kappa free light chain is elevated however ratio is normal, serum immunofixation does not demonstrate any evidence of paraprotein. ALLERGIES Allergies Allergen Reactions Chantix [Varenicline] Swelling MEDS has a current medication list which includes the following prescription(s): accu-chek elli plus test strp, advair diskus, albuterol, bd ultra-fine short pen needle, calcium-vitamin d, clopidogrel, cyanocobalamin, diphenoxylate- atropine, famotidine, folic acid, gemfibrozil, lantus solostar u-100 insulin, lisinopril, loratadine, metformin, multivitamin with minerals, ondansetron, oxycodone-acetaminophen, pantoprazole, pregabalin, propranolol, sodium bicarbonate, spiriva with handihaler, andventolin hfa. PMH/PSH Past Medical History: Diagnosis Date Arthritis Carotid artery occlusion CKD (chronic kidney disease) Stage III Claudication (HCC) COPD (chronic obstructive pulmonary disease) (HCC) Diabetes mellitus (HCC) Essential tremor History of pneumonia Hyperlipidemia Hypertension Leg cramps MGUS (monoclonal gammopathy of unknown significance) Peptic ulcer disease PVD (peripheral vascular disease) (HCC) Rhabdomyolysis 2010 Stroke (HCC) 2010 R side Past Surgical History: Procedure Laterality Date carotid angio 2010 HAND SURGERY Right 2009 MT THROMBOENDARTECTMY NECK,NECK INCIS Right 2009 SHOULDER OPEN ROTATOR CUFF REPAIR Left 2014 FH Family History Problem Relation Age of Onset Heart attack Father Diabetes Sister Heart attack Sister Stroke Sister Hypertension Sister Deep vein thrombosis Sister leg Ovarian cancer Sister Heart attack Brother Cancer Maternal Grandfather Cancer Paternal Grandmother Cancer Maternal Uncle Heart disease Sister Heart disease Sister SH Social History Socioeconomic History Marital status: Spouse name: None Number of children: None Years of education: None Highest education level: None Social Needs Financial resource strain: None Food insecurity - worry: None Food insecurity - inability: None Transportation needs - medical: None Transportation needs - non-medical: None Occupational History Occupation: Disability Comment: [employer] Tobacco Use Smoking status: Current Every Day Smoker Packs/day: 1.00 Years: 55.00 Pack years: 55.00 Types: Cigarettes Smokeless tobacco: Never Used Tobacco comment: Former 3-4 ppd 40 years Substance and Sexual Activity Alcohol use: Yes Comment: occasional Drug use: No Sexual activity: None Other Topics Concern None Social History Narrative Pets: cat Positive PPD ROS Review of Systems Constitutional: Negative. HENT: Negative. Eyes: Negative. Respiratory: Positive for shortness of breath. Cardiovascular: Negative. Endocrine: Negative. Genitourinary: Negative. Musculoskeletal: Positive for back pain and neck pain. Skin: Negative. Neurological: Negative. Insomnia Hematological: Negative. Psychiatric/Behavioral: Negative. Depressed mood EXAM BP (!) 183/90 (BP Location: Left arm) Pulse 83 Temp 97.8 F (36.6 C) (Oral) Ht 5' 7" Wt68.5 kg (151 lb) BMI 23.65 kg/m Physical Exam Constitutional: He is oriented to person, place, and time. He appears well- developed and well-nourished. HENT: Head: Normocephalic and atraumatic. Eyes: Pupils are equal, round, and reactive to light. Conjunctivae and EOM are normal. Neck: Normal range of motion. Neck supple. Cardiovascular: Normal rate and regular rhythm. Pulmonary/Chest: Effort normal and breath sounds normal. Abdominal: Soft. Bowel sounds are normal. Musculoskeletal: Normal range of motion. Neurological: He is alert and oriented to person, place, and time. He has normal reflexes. Skin: Skin is warm and dry. Psychiatric: He has a normal mood and affect. His behavior is normal. Judgment and thought content normal. LABS / IMAGING Reviewed labs obtained after the visit- anemia mild, persistent progressive macrocytosis IMPRESSION 67-year-old male with history of chronic renal insufficiency, diabetes mellitus, noted to have macrocytosis. ASSESSMENT / PLAN Anemia with macrocytosis : Noted mild anemia, persistent macrocytosis. Reviewed the recent extensive workup, no evidence of nutritional deficiency, thyroid functions within normal limits, no evidence of reticulocytosis. Differential diagnosis includes macrocytosis secondary to alco hol use versus evolving myelodysplastic syndrome, encouraged to consider quitting use of alcohol moreover concerned about drug interactions with alcohol, recommend continuing to monitor counts. Thank you for the privilege of allowing me to participate in the care of Stevo Elizalde. GUILLERMO DEWITT MD [employer] [place] in this encounter* Jasmyn Kat MSW LSW - 02/17/2020 2:16 PM EDT SW proactive outreach call this date. Result of Contact: Spoke via phone 1. Do you have any NEW concerns about your health at this time?: No If yes, list needs: 2. Have you been able to obtain necessary medications?: Yes If no, list needs: 3. Do you have essentials needed to remain in your home at this time? e.g. food: Yes If no, list needs: Resources Recommended: none Further Action Completed: none KRISTI Callahan, [employer] Teacher Primary Care [facility] documented in this encounter Summary Purpose Family History No Family History Records Found Grandparent Name Dates Details Family history of malignant neoplasm of stomach(V16.0, Z80.0) Status:Active uncle Name Dates Details Family history of lung cance r(V16.1, Z80.1) Status:Active Father Name Dates Details Family history of hypertensi on(V17.49, Z82.49) Status:Active Family history of myocardial infarction(V17.3, Z82.49) Status:Active Sister Name Dates Details Family history of hypertensi on(V17.49, Z82.49) Status:Active Family history of chronic ob structive pulmonary disease(V17.6, Z82.5) Status:Active Family history of asthma(V17 .5, Z82.5) Status:Active Family history of type 2 sunshine betes mellitus(V18.0, Z83.3) Status:Active Family history of emphysema( V17.6, Z82.5) Status:Active Grandparent Name Dates Details Family history of malignant neoplasm of stomach(V16.0, Z80.0) Status:Active uncle Name Dates Details Family history of lung cance r(V16.1, Z80.1) Status:Active Father Name Dates Details Family history of hypertensi on(V17.49, Z82.49) Status:Active Family history of myocardial infarction(V17.3, Z82.49) Status:Active Sister Name Dates Details Family history of hypertensi on(V17.49, Z82.49) Status:Active Family history of chronic ob structive pulmonary disease(V17.6, Z82.5) Status:Active Family history of asthma(V17 .5, Z82.5) Status:Active Family history of type 2 sunshine betes mellitus(V18.0, Z83.3) Status:Active Family history of emphysema( V17.6, Z82.5) Status:Active Grandparent Name Dates Details Family history of malignant neoplasm of stomach(V16.0, Z80.0) Status:Active uncle Name Dates Details Family history of lung cance r(V16.1, Z80.1) Status:Active Father Name Dates Details Family history of hypertensi on(V17.49, Z82.49) Status:Active Family history of myocardial infarction(V17.3, Z82.49) Status:Active Sister Name Dates Details Family history of hypertensi on(V17.49, Z82.49) Status:Active Family history of chronic ob structive pulmonary disease(V17.6, Z82.5) Status:Active Family history of asthma(V17 .5, Z82.5) Status:Active Family history of type 2 sunshine betes mellitus(V18.0, Z83.3) Status:Active Family history of emphysema( V17.6, Z82.5) Status:Active Grandparent Name Dates Details Family history of malignant neoplasm of stomach(V16.0, Z80.0) Status:Active uncle Name Dates Details Family history of lung cance r(V16.1, Z80.1) Status:Active Father Name Dates Details Family history of hypertensi on(V17.49, Z82.49) Status:Active Family history of myocardial infarction(V17.3, Z82.49) Status:Active Sister Name Dates Details Family history of hypertensi on(V17.49, Z82.49) Status:Active Family history of chronic ob structive pulmonary disease(V17.6, Z82.5) Status:Active Family history of asthma(V17 .5, Z82.5) Status:Active Family history of type 2 sunshine betes mellitus(V18.0, Z83.3) Status:Active Family history of emphysema( V17.6, Z82.5) Status:Active Unknown Family Member Name Dates Details Family history of hypertensi on: Father, Sister(V17.49, Z82.49) Status:Active Family history of myocardial infarction: Father(V17.3, Z82.49) Status:Active Family history of chronic ob structive pulmonary disease: Sister(V17.6, Z82.5) Status:Active Family history of asthma: Si ster(V17.5, Z82.5) Status:Active Family history of type 2 sunshine betes mellitus: Sister(V18.0, Z83.3) Status:Active Family history of emphysema: Sister(V17.6, Z82.5) Status:Active Family history of malignant neoplasm of stomach: Grandparent(V16.0, Z80.0) Status:Active Family history of lung cance r: Uncle(V16.1, Z80.1) Status:Active Unknown Family Member Name Dates Details Family history of hypertensi on: Father, Sister(V17.49, Z82.49) Status:Active Family history of myocardial infarction: Father(V17.3, Z82.49) Status:Active Family history of chronic ob structive pulmonary disease: Sister(V17.6, Z82.5) Status:Active Family history of asthma: Si ster(V17.5, Z82.5) Status:Active Family history of type 2 sunshine betes mellitus: Sister(V18.0, Z83.3) Status:Active Family history of emphysema: Sister(V17.6, Z82.5) Status:Active Family history of malignant neoplasm of stomach: Grandparent(V16.0, Z80.0) Status:Active Family history of lung cance r: Uncle(V16.1, Z80.1) Status:Active Unknown Family Member Name Dates Details Family history of hypertensi on: Father, Sister(V17.49, Z82.49) Status:Active Family history of myocardial infarction: Father(V17.3, Z82.49) Status:Active Family history of chronic ob structive pulmonary disease: Sister(V17.6, Z82.5) Status:Active Family history of asthma: Si ster(V17.5, Z82.5) Status:Active Family history of type 2 sunshine betes mellitus: Sister(V18.0, Z83.3) Status:Active Family history of emphysema: Sister(V17.6, Z82.5) Status:Active Family history of malignant neoplasm of stomach: Grandparent(V16.0, Z80.0) Status:Active Family history of lung cance r: Uncle(V16.1, Z80.1) Status:Active Unknown Family Member Name Dates Details Family history of hypertensi on: Father, Sister(V17.49, Z82.49) Status:Active Family history of myocardial infarction: Father(V17.3, Z82.49) Status:Active Family history of chronic ob structive pulmonary disease: Sister(V17.6, Z82.5) Status:Active Family history of asthma: Si ster(V17.5, Z82.5) Status:Active Family history of type 2 sunshine betes mellitus: Sister(V18.0, Z83.3) Status:Active Family history of emphysema: Sister(V17.6, Z82.5) Status:Active Family history of malignant neoplasm of stomach: Grandparent(V16.0, Z80.0) Status:Active Family history of lung cance r: Uncle(V16.1, Z80.1) Status:Active Unknown Family Member Name Dates Details Family history of hypertensi on: Father, Sister(V17.49, Z82.49) Status:Active Family history of myocardial infarction: Father(V17.3, Z82.49) Status:Active Family history of chronic ob structive pulmonary disease: Sister(V17.6, Z82.5) Status:Active Family history of asthma: Si ster(V17.5, Z82.5) Status:Active Family history of type 2 sunshine betes mellitus: Sister(V18.0, Z83.3) Status:Active Family history of emphysema: Sister(V17.6, Z82.5) Status:Active Family history of malignant neoplasm of stomach: Grandparent(V16.0, Z80.0) Status:Active Family history of lung cance r: Uncle(V16.1, Z80.1) Status:Active Unknown Family Member Name Dates Details Family history of hypertensi on: Father, Sister(V17.49, Z82.49) Status:Active Family history of myocardial infarction: Father(V17.3, Z82.49) Status:Active Family history of chronic ob structive pulmonary disease: Sister(V17.6, Z82.5) Status:Active Family history of asthma: Si ster(V17.5, Z82.5) Status:Active Family history of type 2 sunshine betes mellitus: Sister(V18.0, Z83.3) Status:Active Family history of emphysema: Sister(V17.6, Z82.5) Status:Active Family history of malignant neoplasm of stomach: Grandparent(V16.0, Z80.0) Status:Active Family history of lung cance r: Uncle(V16.1, Z80.1) Status:Active Unknown Family Member Name Dates Details Family history of hypertensi on: Father, Sister(V17.49, Z82.49) Status:Active Family history of myocardial infarction: Father(V17.3, Z82.49) Status:Active Family history of chronic ob structive pulmonary disease: Sister(V17.6, Z82.5) Status:Active Family history of asthma: Si ster(V17.5, Z82.5) Status:Active Family history of type 2 sunshine betes mellitus: Sister(V18.0, Z83.3) Status:Active Family history of emphysema: Sister(V17.6, Z82.5) Status:Active Family history of malignant neoplasm of stomach: Grandparent(V16.0, Z80.0) Status:Active Family history of lung cance r: Uncle(V16.1, Z80.1) Status:Active Unknown Family Member Name Dates Details Family history of hypertensi on: Father, Sister(V17.49, Z82.49) Status:Active Family history of myocardial infarction: Father(V17.3, Z82.49) Status:Active Family history of chronic ob structive pulmonary disease: Sister(V17.6, Z82.5) Status:Active Family history of asthma: Si ster(V17.5, Z82.5) Status:Active Family history of type 2 sunshine betes mellitus: Sister(V18.0, Z83.3) Status:Active Family history of emphysema: Sister(V17.6, Z82.5) Status:Active Family history of malignant neoplasm of stomach: Grandparent(V16.0, Z80.0) Status:Active Family history of lung cance r: Uncle(V16.1, Z80.1) Status:Active Unknown Family Member Name Dates Details Family history of hypertensi on: Father, Sister(V17.49, Z82.49) Status:Active Family history of myocardial infarction: Father(V17.3, Z82.49) Status:Active Family history of chronic ob structive pulmonary disease: Sister(V17.6, Z82.5) Status:Active Family history of asthma: Si ster(V17.5, Z82.5) Status:Active Family history of type 2 sunshine betes mellitus: Sister(V18.0, Z83.3) Status:Active Family history of emphysema: Sister(V17.6, Z82.5) Status:Active Family history of malignant neoplasm of stomach: Grandparent(V16.0, Z80.0) Status:Active Family history of lung cance r: Uncle(V16.1, Z80.1) Status:Active Unknown Family Member Name Dates Details Family history of hypertensi on: Father, Sister(V17.49, Z82.49) Status:Active Family history of myocardial infarction: Father(V17.3, Z82.49) Status:Active Family history of chronic ob structive pulmonary disease: Sister(V17.6, Z82.5) Status:Active Family history of asthma: Si ster(V17.5, Z82.5) Status:Active Family history of type 2 sunshine betes mellitus: Sister(V18.0, Z83.3) Status:Active Family history of emphysema: Sister(V17.6, Z82.5) Status:Active Family history of malignant neoplasm of stomach: Grandparent(V16.0, Z80.0) Status:Active Family history of lung cance r: Uncle(V16.1, Z80.1) Status:Active Unknown Family Member Name Dates Details Family history of hypertensi on: Father, Sister(V17.49, Z82.49) Status:Active Family history of myocardial infarction: Father(V17.3, Z82.49) Status:Active Family history of chronic ob structive pulmonary disease: Sister(V17.6, Z82.5) Status:Active Family history of asthma: Si ster(V17.5, Z82.5) Status:Active Family history of type 2 sunshine betes mellitus: Sister(V18.0, Z83.3) Status:Active Family history of emphysema: Sister(V17.6, Z82.5) Status:Active Family history of malignant neoplasm of stomach: Grandparent(V16.0, Z80.0) Status:Active Family history of lung cance r: Uncle(V16.1, Z80.1) Status:Active Unknown Family Member Name Dates Details Family history of hypertensi on: Father, Sister(V17.49, Z82.49) Status:Active Family history of myocardial infarction: Father(V17.3, Z82.49) Status:Active Family history of chronic ob structive pulmonary disease: Sister(V17.6, Z82.5) Status:Active Family history of asthma: Si ster(V17.5, Z82.5) Status:Active Family history of type 2 sunshine betes mellitus: Sister(V18.0, Z83.3) Status:Active Family history of emphysema: Sister(V17.6, Z82.5) Status:Active Family history of malignant neoplasm of stomach: Grandparent(V16.0, Z80.0) Status:Active Family history of lung cance r: Uncle(V16.1, Z80.1) Status:Active Unknown Family Member Name Dates Details Family history of hypertensi on: Father, Sister(V17.49, Z82.49) Status:Active Family history of myocardial infarction: Father(V17.3, Z82.49) Status:Active Family history of chronic ob structive pulmonary disease: Sister(V17.6, Z82.5) Status:Active Family history of asthma: Si ster(V17.5, Z82.5) Status:Active Family history of type 2 sunshine betes mellitus: Sister(V18.0, Z83.3) Status:Active Family history of emphysema: Sister(V17.6, Z82.5) Status:Active Family history of malignant neoplasm of stomach: Grandparent(V16.0, Z80.0) Status:Active Family history of lung cance r: Uncle(V16.1, Z80.1) Status:Active Unknown Family Member Name Dates Details Family history of hypertensi on: Father, Sister(V17.49, Z82.49) Status:Active Family history of myocardial infarction: Father(V17.3, Z82.49) Status:Active Family history of chronic ob structive pulmonary disease: Sister(V17.6, Z82.5) Status:Active Family history of asthma: Si ster(V17.5, Z82.5) Status:Active Family history of type 2 sus[place] betes mellitus: Sister(V18.0, Z83.3) Status:Active Family history of emphysema: Sister(V17.6, Z82.5) Status:Active Family history of malignant neoplasm of stomach: Grandparent(V16.0, Z80.0) Status:Active Family history of lung cance r: Uncle(V16.1, Z80.1) Status:Active Unknown Family Member Name Dates Details Family history of hypertensi on: Father, Sister(V17.49, Z82.49) Status:Active Family history of myocardial infarction: Father(V17.3, Z82.49) Status:Active Family history of chronic ob structive pulmonary disease: Sister(V17.6, Z82.5) Status:Active Family history of asthma: Si ster(V17.5, Z82.5) Status:Active Family history of type 2 sunshine betes mellitus: Sister(V18.0, Z83.3) Status:Active Family history of emphysema: Sister(V17.6, Z82.5) Status:Active Family history of malignant neoplasm of stomach: Grandparent(V16.0, Z80.0) Status:Active Family history of lung cance r: Uncle(V16.1, Z80.1) Status:Active Unknown Family Member Name Dates Details Family history of hypertensi on: Father, Sister(V17.49, Z82.49) Status:Active Family history of myocardial infarction: Father(V17.3, Z82.49) Status:Active Family history of chronic ob structive pulmonary disease: Sister(V17.6, Z82.5) Status:Active Family history of asthma: Si ster(V17.5, Z82.5) Status:Active Family history of type 2 sunshine betes mellitus: Sister(V18.0, Z83.3) Status:Active Family history of emphysema: Sister(V17.6, Z82.5) Status:Active Family history of malignant neoplasm of stomach: Grandparent(V16.0, Z80.0) Status:Active Family history of lung cance r: Uncle(V16.1, Z80.1) Status:Active Unknown Family Member Name Dates Details Family history of hypertensi on: Father, Sister(V17.49, Z82.49) Status:Active Family history of myocardial infarction: Father(V17.3, Z82.49) Status:Active Family history of chronic ob structive pulmonary disease: Sister(V17.6, Z82.5) Status:Active Family history of asthma: Si ster(V17.5, Z82.5) Status:Active Family history of type 2 sunshine betes mellitus: Sister(V18.0, Z83.3) Status:Active Family history of emphysema: Sister(V17.6, Z82.5) Status:Active Family history of malignant neoplasm of stomach: Grandparent(V16.0, Z80.0) Status:Active Family history of lung cance r: Uncle(V16.1, Z80.1) Status:Active Unknown Family Member Name Dates Details Family history of hypertensi on: Father, Sister(V17.49, Z82.49) Status:Active Family history of myocardial infarction: Father(V17.3, Z82.49) Status:Active Family history of chronic ob structive pulmonary disease: Sister(V17.6, Z82.5) Status:Active Family history of asthma: Si ster(V17.5, Z82.5) Status:Active Family history of type 2 sunshine betes mellitus: Sister(V18.0, Z83.3) Status:Active Family history of emphysema: Sister(V17.6, Z82.5) Status:Active Family history of malignant neoplasm of stomach: Grandparent(V16.0, Z80.0) Status:Active Family history of lung cance r: Uncle(V16.1, Z80.1) Status:Active Unknown Family Member Name Dates Details Family history of hypertensi on: Father, Sister(V17.49, Z82.49) Status:Active Family history of myocardial infarction: Father(V17.3, Z82.49) Status:Active Family history of chronic ob structive pulmonary disease: Sister(V17.6, Z82.5) Status:Active Family history of asthma: Si ster(V17.5, Z82.5) Status:Active Family history of type 2 sunshine betes mellitus: Sister(V18.0, Z83.3) Status:Active Family history of emphysema: Sister(V17.6, Z82.5) Status:Active Family history of malignant neoplasm of stomach: Grandparent(V16.0, Z80.0) Status:Active Family history of lung cance r: Uncle(V16.1, Z80.1) Status:Active Unknown Family Member Name Dates Details Family history of hypertensi on: Father, Sister(V17.49, Z82.49) Status:Active Family history of myocardial infarction: Father(V17.3, Z82.49) Status:Active Family history of chronic ob structive pulmonary disease: Sister(V17.6, Z82.5) Status:Active Family history of asthma: Si ster(V17.5, Z82.5) Status:Active Family history of type 2 sunshine betes mellitus: Sister(V18.0, Z83.3) Status:Active Family history of emphysema: Sister(V17.6, Z82.5) Status:Active Family history of malignant neoplasm of stomach: Grandparent(V16.0, Z80.0) Status:Active Family history of lung cance r: Uncle(V16.1, Z80.1) Status:Active Unknown Family Member Name Dates Details Family history of hypertensi on: Father, Sister(V17.49, Z82.49) Status:Active Family history of myocardial infarction: Father(V17.3, Z82.49) Status:Active Family history of chronic ob structive pulmonary disease: Sister(V17.6, Z82.5) Status:Active Family history of asthma: Si ster(V17.5, Z82.5) Status:Active Family history of type 2 sunshine betes mellitus: Sister(V18.0, Z83.3) Status:Active Family history of emphysema: Sister(V17.6, Z82.5) Status:Active Family history of malignant neoplasm of stomach: Grandparent(V16.0, Z80.0) Status:Active Family history of lung cance r: Uncle(V16.1, Z80.1) Status:Active Unknown Family Member Name Dates Details Family history of lung cance r: Uncle(V16.1, Z80.1) Status:Active Family history of malignant neoplasm of stomach: Grandparent(V16.0, Z80.0) Status:Active Family history of emphysema: Sister(V17.6, Z82.5) Status:Active Family history of type 2 sunshine betes mellitus: Sister(V18.0, Z83.3) Status:Active Family history of asthma: Si ster(V17.5, Z82.5) Status:Active Family history of chronic ob structive pulmonary disease: Sister(V17.6, Z82.5) Status:Active Family history of myocardial infarction: Father(V17.3, Z82.49) Status:Active Family history of hypertensi on: Father, Sister(V17.49, Z82.49) Status:Active Unknown Family Member Name Dates Details Family history of hypertensi on: Father, Sister(V17.49, Z82.49) Status:Active Family history of myocardial infarction: Father(V17.3, Z82.49) Status:Active Family history of chronic ob structive pulmonary disease: Sister(V17.6, Z82.5) Status:Active Family history of asthma: Si ster(V17.5, Z82.5) Status:Active Family history of type 2 sunshine betes mellitus: Sister(V18.0, Z83.3) Status:Active Family history of emphysema: Sister(V17.6, Z82.5) Status:Active Family history of malignant neoplasm of stomach: Grandparent(V16.0, Z80.0) Status:Active Family history of lung cance r: Uncle(V16.1, Z80.1) Status:Active Unknown Family Member Name Dates Details Family history of hypertensi on: Father, Sister(V17.49, Z82.49) Status:Active Family history of myocardial infarction: Father(V17.3, Z82.49) Status:Active Family history of chronic ob structive pulmonary disease: Sister(V17.6, Z82.5) Status:Active Family history of asthma: Si ster(V17.5, Z82.5) Status:Active Family history of type 2 sunshine betes mellitus: Sister(V18.0, Z83.3) Status:Active Family history of emphysema: Sister(V17.6, Z82.5) Status:Active Family history of malignant neoplasm of stomach: Grandparent(V16.0, Z80.0) Status:Active Family history of lung cance r: Uncle(V16.1, Z80.1) Status:Active Unknown Family Member Name Dates Details Family history of lung cance r: Uncle(V16.1, Z80.1) Status:Active Family history of malignant neoplasm of stomach: Grandparent(V16.0, Z80.0) Status:Active Family history of emphysema: Sister(V17.6, Z82.5) Status:Active Family history of type 2 sunshine betes mellitus: Sister(V18.0, Z83.3) Status:Active Family history of asthma: Si ster(V17.5, Z82.5) Status:Active Family history of chronic ob structive pulmonary disease: Sister(V17.6, Z82.5) Status:Active Family history of myocardial infarction: Father(V17.3, Z82.49) Status:Active Family history of hypertensi on: Father, Sister(V17.49, Z82.49) Status:Active Unknown Family Member Name Dates Details Family history of hypertensi on: Father, Sister(V17.49, Z82.49) Status:Active Family history of myocardial infarction: Father(V17.3, Z82.49) Status:Active Family history of chronic ob structive pulmonary disease: Sister(V17.6, Z82.5) Status:Active Family history of asthma: Si ster(V17.5, Z82.5) Status:Active Family history of type 2 sunshine betes mellitus: Sister(V18.0, Z83.3) Status:Active Family history of emphysema: Sister(V17.6, Z82.5) Status:Active Family history of malignant neoplasm of stomach: Grandparent(V16.0, Z80.0) Status:Active Family history of lung cance r: Uncle(V16.1, Z80.1) Status:Active Grandparent Name Dates Details Family history of malignant neoplasm of stomach(V16.0, Z80.0) Status:Active uncle Name Dates Details Family history of lung cance r(V16.1, Z80.1) Status:Active Father Name Dates Details Family history of hypertensi on(V17.49, Z82.49) Status:Active Family history of myocardial infarction(V17.3, Z82.49) Status:Active Sister Name Dates Details Family history of hypertensi on(V17.49, Z82.49) Status:Active Family history of chronic ob structive pulmonary disease(V17.6, Z82.5) Status:Active Family history of asthma(V17 .5, Z82.5) Status:Active Family history of type 2 sunshine betes mellitus(V18.0, Z83.3) Status:Active Family history of emphysema( V17.6, Z82.5) Status:Active Unknown Family Member Name Dates Details Family history of lung cance r: Uncle(V16.1, Z80.1) Status:Active Family history of malignant neoplasm of stomach: Grandparent(V16.0, Z80.0) Status:Active Family history of emphysema: Sister(V17.6, Z82.5) Status:Active Family history of type 2 sunshine betes mellitus: Sister(V18.0, Z83.3) Status:Active Family history of asthma: Si ster(V17.5, Z82.5) Status:Active Family history of chronic ob structive pulmonary disease: Sister(V17.6, Z82.5) Status:Active Family history of myocardial infarction: Father(V17.3, Z82.49) Status:Active Family history of hypertensi on: Father, Sister(V17.49, Z82.49) Status:Active Unknown Family Member Name Dates Details Family history of hypertensi on: Father, Sister(V17.49, Z82.49) Status:Active Family history of myocardial infarction: Father(V17.3, Z82.49) Status:Active Family history of chronic ob structive pulmonary disease: Sister(V17.6, Z82.5) Status:Active Family history of asthma: Si ster(V17.5, Z82.5) Status:Active Family history of type 2 sunshine betes mellitus: Sister(V18.0, Z83.3) Status:Active Family history of emphysema: Sister(V17.6, Z82.5) Status:Active Family history of malignant neoplasm of stomach: Grandparent(V16.0, Z80.0) Status:Active Family history of lung cance r: Uncle(V16.1, Z80.1) Status:Active Unknown Family Member Name Dates Details Family history of hypertensi on: Father, Sister(V17.49, Z82.49) Status:Active Family history of myocardial infarction: Father(V17.3, Z82.49) Status:Active Family history of chronic ob structive pulmonary disease: Sister(V17.6, Z82.5) Status:Active Family history of asthma: Si ster(V17.5, Z82.5) Status:Active Family history of type 2 sunshine betes mellitus: Sister(V18.0, Z83.3) Status:Active Family history of emphysema: Sister(V17.6, Z82.5) Status:Active Family history of malignant neoplasm of stomach: Grandparent(V16.0, Z80.0) Status:Active Family history of lung cance r: Uncle(V16.1, Z80.1) Status:Active Unknown Family Member Name Dates Details Family history of hypertensi on: Father, Sister(V17.49, Z82.49) Status:Active Family history of myocardial infarction: Father(V17.3, Z82.49) Status:Active Family history of chronic ob structive pulmonary disease: Sister(V17.6, Z82.5) Status:Active Family history of asthma: Si ster(V17.5, Z82.5) Status:Active Family history of type 2 sunshine betes mellitus: Sister(V18.0, Z83.3) Status:Active Family history of emphysema: Sister(V17.6, Z82.5) Status:Active Family history of malignant neoplasm of stomach: Grandparent(V16.0, Z80.0) Status:Active Family history of lung cance r: Uncle(V16.1, Z80.1) Status:Active Unknown Family Member Name Dates Details Family history of hypertensi on: Father, Sister(V17.49, Z82.49) Status:Active Family history of myocardial infarction: Father(V17.3, Z82.49) Status:Active Family history of chronic ob structive pulmonary disease: Sister(V17.6, Z82.5) Status:Active Family history of asthma: Si ster(V17.5, Z82.5) Status:Active Family history of type 2 sunshine betes mellitus: Sister(V18.0, Z83.3) Status:Active Family history of emphysema: Sister(V17.6, Z82.5) Status:Active Family history of malignant neoplasm of stomach: Grandparent(V16.0, Z80.0) Status:Active Family history of lung cance r: Uncle(V16.1, Z80.1) Status:Active Unknown Family Member Name Dates Details Family history of hypertensi on: Father, Sister(V17.49, Z82.49) Status:Active Family history of myocardial infarction: Father(V17.3, Z82.49) Status:Active Family history of chronic ob structive pulmonary disease: Sister(V17.6, Z82.5) Status:Active Family history of asthma: Si ster(V17.5, Z82.5) Status:Active Family history of type 2 sunshine betes mellitus: Sister(V18.0, Z83.3) Status:Active Family history of emphysema: Sister(V17.6, Z82.5) Status:Active Family history of malignant neoplasm of stomach: Grandparent(V16.0, Z80.0) Status:Active Family history of lung cance r: Uncle(V16.1, Z80.1) Status:Active Unknown Family Member Name Dates Details Family history of hypertensi on: Father, Sister(V17.49, Z82.49) Status:Active Family history of myocardial infarction: Father(V17.3, Z82.49) Status:Active Family history of chronic ob structive pulmonary disease: Sister(V17.6, Z82.5) Status:Active Family history of asthma: Si ster(V17.5, Z82.5) Status:Active Family history of type 2 sunshine betes mellitus: Sister(V18.0, Z83.3) Status:Active Family history of emphysema: Sister(V17.6, Z82.5) Status:Active Family history of malignant neoplasm of stomach: Grandparent(V16.0, Z80.0) Status:Active Family history of lung cance r: Uncle(V16.1, Z80.1) Status:Active Unknown Family Member Name Dates Details Family history of hypertensi on: Father, Sister(V17.49, Z82.49) Status:Active Family history of myocardial infarction: Father(V17.3, Z82.49) Status:Active Family history of chronic ob structive pulmonary disease: Sister(V17.6, Z82.5) Status:Active Family history of asthma: Si ster(V17.5, Z82.5) Status:Active Family history of type 2 sunshine betes mellitus: Sister(V18.0, Z83.3) Status:Active Family history of emphysema: Sister(V17.6, Z82.5) Status:Active Family history of malignant neoplasm of stomach: Grandparent(V16.0, Z80.0) Status:Active Family history of lung cance r: Uncle(V16.1, Z80.1) Status:Active Unknown Family Member Name Dates Details Family history of hypertensi on: Father, Sister(V17.49, Z82.49) Status:Active Family history of myocardial infarction: Father(V17.3, Z82.49) Status:Active Family history of chronic ob structive pulmonary disease: Sister(V17.6, Z82.5) Status:Active Family history of asthma: Si ster(V17.5, Z82.5) Status:Active Family history of type 2 sunshine betes mellitus: Sister(V18.0, Z83.3) Status:Active Family history of emphysema: Sister(V17.6, Z82.5) Status:Active Family history of malignant neoplasm of stomach: Grandparent(V16.0, Z80.0) Status:Active Family history of lung cance r: Uncle(V16.1, Z80.1) Status:Active Unknown Family Member Name Dates Details Family history of hypertensi on: Father, Sister(V17.49, Z82.49) Status:Active Family history of myocardial infarction: Father(V17.3, Z82.49) Status:Active Family history of chronic ob structive pulmonary disease: Sister(V17.6, Z82.5) Status:Active Family history of asthma: Si ster(V17.5, Z82.5) Status:Active Family history of type 2 sunshine betes mellitus: Sister(V18.0, Z83.3) Status:Active Family history of emphysema: Sister(V17.6, Z82.5) Status:Active Family history of malignant neoplasm of stomach: Grandparent(V16.0, Z80.0) Status:Active Family history of lung cance r: Uncle(V16.1, Z80.1) Status:Active Unknown Family Member Name Dates Details Family history of hypertensi on: Father, Sister(V17.49, Z82.49) Status:Active Family history of myocardial infarction: Father(V17.3, Z82.49) Status:Active Family history of chronic ob structive pulmonary disease: Sister(V17.6, Z82.5) Status:Active Family history of asthma: Si ster(V17.5, Z82.5) Status:Active Family history of type 2 sunshine betes mellitus: Sister(V18.0, Z83.3) Status:Active Family history of emphysema: Sister(V17.6, Z82.5) Status:Active Family history of malignant neoplasm of stomach: Grandparent(V16.0, Z80.0) Status:Active Family history of lung cance r: Uncle(V16.1, Z80.1) Status:Active Unknown Family Member Name Dates Details Family history of hypertensi on: Father, Sister(V17.49, Z82.49) Status:Active Family history of myocardial infarction: Father(V17.3, Z82.49) Status:Active Family history of chronic ob structive pulmonary disease: Sister(V17.6, Z82.5) Status:Active Family history of asthma: Si ster(V17.5, Z82.5) Status:Active Family history of type 2 sunshine betes mellitus: Sister(V18.0, Z83.3) Status:Active Family history of emphysema: Sister(V17.6, Z82.5) Status:Active Family history of malignant neoplasm of stomach: Grandparent(V16.0, Z80.0) Status:Active Family history of lung cance r: Uncle(V16.1, Z80.1) Status:Active Unknown Family Member Name Dates Details Family history of hypertensi on: Father, Sister(V17.49, Z82.49) Status:Active Family history of myocardial infarction: Father(V17.3, Z82.49) Status:Active Family history of chronic ob structive pulmonary disease: Sister(V17.6, Z82.5) Status:Active Family history of asthma: Si ster(V17.5, Z82.5) Status:Active Family history of type 2 sunshine betes mellitus: Sister(V18.0, Z83.3) Status:Active Family history of emphysema: Sister(V17.6, Z82.5) Status:Active Family history of malignant neoplasm of stomach: Grandparent(V16.0, Z80.0) Status:Active Family history of lung cance r: Uncle(V16.1, Z80.1) Status:Active Unknown Family Member Name Dates Details Family history of hypertensi on: Father, Sister(V17.49, Z82.49) Status:Active Family history of myocardial infarction: Father(V17.3, Z82.49) Status:Active Family history of chronic ob structive pulmonary disease: Sister(V17.6, Z82.5) Status:Active Family history of asthma: Si ster(V17.5, Z82.5) Status:Active Family history of type 2 sunshine betes mellitus: Sister(V18.0, Z83.3) Status:Active Family history of emphysema: Sister(V17.6, Z82.5) Status:Active Family history of malignant neoplasm of stomach: Grandparent(V16.0, Z80.0) Status:Active Family history of lung cance r: Uncle(V16.1, Z80.1) Status:Active Unknown Family Member Name Dates Details Family history of hypertensi on: Father, Sister(V17.49, Z82.49) Status:Active Family history of myocardial infarction: Father(V17.3, Z82.49) Status:Active Family history of chronic ob structive pulmonary disease: Sister(V17.6, Z82.5) Status:Active Family history of asthma: Si ster(V17.5, Z82.5) Status:Active Family history of type 2 sunshine betes mellitus: Sister(V18.0, Z83.3) Status:Active Family history of emphysema: Sister(V17.6, Z82.5) Status:Active Family history of malignant neoplasm of stomach: Grandparent(V16.0, Z80.0) Status:Active Family history of lung cance r: Uncle(V16.1, Z80.1) Status:Active Unknown Family Member Name Dates Details Family history of lung cance r: Uncle(V16.1, Z80.1) Status:Active Family history of malignant neoplasm of stomach: Grandparent(V16.0, Z80.0) Status:Active Family history of emphysema: Sister(V17.6, Z82.5) Status:Active Family history of type 2 sunshine betes mellitus: Sister(V18.0, Z83.3) Status:Active Family history of asthma: Si ster(V17.5, Z82.5) Status:Active Family history of chronic ob structive pulmonary disease: Sister(V17.6, Z82.5) Status:Active Family history of myocardial infarction: Father(V17.3, Z82.49) Status:Active Family history of hypertensi on: Father, Sister(V17.49, Z82.49) Status:Active Unknown Family Member Name Dates Details Family history of lung cance r: Uncle(V16.1, Z80.1) Status:Active Family history of malignant neoplasm of stomach: Grandparent(V16.0, Z80.0) Status:Active Family history of emphysema: Sister(V17.6, Z82.5) Status:Active Family history of type 2 sunshine betes mellitus: Sister(V18.0, Z83.3) Status:Active Family history of asthma: Si ster(V17.5, Z82.5) Status:Active Family history of chronic ob structive pulmonary disease: Sister(V17.6, Z82.5) Status:Active Family history of myocardial infarction: Father(V17.3, Z82.49) Status:Active Family history of hypertensi on: Father, Sister(V17.49, Z82.49) Status:Active Unknown Family Member Name Dates Details Family history of lung cance r: Uncle(V16.1, Z80.1) Status:Active Family history of malignant neoplasm of stomach: Grandparent(V16.0, Z80.0) Status:Active Family history of emphysema: Sister(V17.6, Z82.5) Status:Active Family history of type 2 sunshine betes mellitus: Sister(V18.0, Z83.3) Status:Active Family history of asthma: Si ster(V17.5, Z82.5) Status:Active Family history of chronic ob structive pulmonary disease: Sister(V17.6, Z82.5) Status:Active Family history of myocardial infarction: Father(V17.3, Z82.49) Status:Active Family history of hypertensi on: Father, Sister(V17.49, Z82.49) Status:Active Unknown Family Member Name Dates Details Family history of hypertensi on: Father, Sister(V17.49, Z82.49) Status:Active Family history of myocardial infarction: Father(V17.3, Z82.49) Status:Active Family history of chronic ob structive pulmonary disease: Sister(V17.6, Z82.5) Status:Active Family history of asthma: Si ster(V17.5, Z82.5) Status:Active Family history of type 2 sunshine betes mellitus: Sister(V18.0, Z83.3) Status:Active Family history of emphysema: Sister(V17.6, Z82.5) Status:Active Family history of malignant neoplasm of stomach: Grandparent(V16.0, Z80.0) Status:Active Family history of lung cance r: Uncle(V16.1, Z80.1) Status:Active Unknown Family Member Name Dates Details Family history of malignant neoplasm of stomach: Grandparent(V16.0, Z80.0) Status:Active Family history of lung cance r: Uncle(V16.1, Z80.1) Status:Active Family history of emphysema: Sister(V17.6, Z82.5) Status:Active Family history of type 2 sunshine betes mellitus: Sister(V18.0, Z83.3) Status:Active Family history of asthma: Si ster(V17.5, Z82.5) Status:Active Family history of chronic ob structive pulmonary disease: Sister(V17.6, Z82.5) Status:Active Family history of myocardial infarction: Father(V17.3, Z82.49) Status:Active Family history of hypertensi on: Father, Sister(V17.49, Z82.49) Status:Active Unknown Family Member Name Dates Details Family history of malignant neoplasm of stomach: Grandparent(V16.0, Z80.0) Status:Active Family history of lung cance r: Uncle(V16.1, Z80.1) Status:Active Family history of emphysema: Sister(V17.6, Z82.5) Status:Active Family history of type 2 sunshine betes mellitus: Sister(V18.0, Z83.3) Status:Active Family history of asthma: Si ster(V17.5, Z82.5) Status:Active Family history of chronic ob structive pulmonary disease: Sister(V17.6, Z82.5) Status:Active Family history of myocardial infarction: Father(V17.3, Z82.49) Status:Active Family history of hypertensi on: Father, Sister(V17.49, Z82.49) Status:Active Unknown Family Member Name Dates Details Family history of hypertensi on: Father, Sister(V17.49, Z82.49) Status:Active Family history of myocardial infarction: Father(V17.3, Z82.49) Status:Active Family history of chronic ob structive pulmonary disease: Sister(V17.6, Z82.5) Status:Active Family history of asthma: Si ster(V17.5, Z82.5) Status:Active Family history of type 2 sunshine betes mellitus: Sister(V18.0, Z83.3) Status:Active Family history of emphysema: Sister(V17.6, Z82.5) Status:Active Family history of malignant neoplasm of stomach: Grandparent(V16.0, Z80.0) Status:Active Family history of lung cance r: Uncle(V16.1, Z80.1) Status:Active Unknown Family Member Name Dates Details Family history of malignant neoplasm of stomach: Grandparent(V16.0, Z80.0) Status:Active Family history of lung cance r: Uncle(V16.1, Z80.1) Status:Active Family history of emphysema: Sister(V17.6, Z82.5) Status:Active Family history of type 2 sunshine betes mellitus: Sister(V18.0, Z83.3) Status:Active Family history of asthma: Si ster(V17.5, Z82.5) Status:Active Family history of chronic ob structive pulmonary disease: Sister(V17.6, Z82.5) Status:Active Family history of myocardial infarction: Father(V17.3, Z82.49) Status:Active Family history of hypertensi on: Father, Sister(V17.49, Z82.49) Status:Active Unknown Family Member Name Dates Details Family history of hypertensi on: Father, Sister(V17.49, Z82.49) Status:Active Family history of myocardial infarction: Father(V17.3, Z82.49) Status:Active Family history of chronic ob structive pulmonary disease: Sister(V17.6, Z82.5) Status:Active Family history of asthma: Si ster(V17.5, Z82.5) Status:Active Family history of type 2 sunshine betes mellitus: Sister(V18.0, Z83.3) Status:Active Family history of emphysema: Sister(V17.6, Z82.5) Status:Active Family history of malignant neoplasm of stomach: Grandparent(V16.0, Z80.0) Status:Active Family history of lung cance r: Uncle(V16.1, Z80.1) Status:Active Advance Directives No Advanced Directives Records FoundDocuments on File Type Date Recorded Patient Senior Regulatory Affairs Specialist Expl anation Advance Directives and Livin g Will 11/13/2018 12:00 AM Documents on File Type Date Recorded Patient Senior Regulatory Affairs Specialist Expl anation Advance Directives and Livin g Will 05/27/2019 11:55 AM Documents on File Type Date Recorded Patient Senior Regulatory Affairs Specialist Expl anation Advance Directives and Livin g Will 06/05/2019 12:41 PM Documents on File Type Date Recorded Patient Senior Regulatory Affairs Specialist Expl anation Advance Directives and Livin g Will 12/04/2019 12:47 PM Documents on File Type Date Recorded Patient Senior Regulatory Affairs Specialist Expl anation Advance Directives and Livin g Will 12/04/2019 12:47 PM Documents on File Type Date Recorded Patient Senior Regulatory Affairs Specialist Expl anation Advance Directives and Livin g Will 04/14/2020 1:37 PM Documents on File Type Date Recorded Patient Senior Regulatory Affairs Specialist Expl anation Advance Directives and Livin g Will 12/04/2019 12:47 PM Advance Directives and Livin g Will 04/14/2020 1:37 PM Documents on File Type Date Recorded Patient Senior Regulatory Affairs Specialist Expl anation Advance Directives and Livin g Will 12/04/2019 12:47 PM Advance Directives and Livin g Will 05/25/2020 12:00 AM Documents on File Type Date Recorded Patient Senior Regulatory Affairs Specialist Expl anation Advance Directives and Livin g Will 12/04/2019 12:47 PM Advance Directives and Livin g Will 06/10/2020 6:41 PM Documents on File Type Date Recorded Patient Senior Regulatory Affairs Specialist Expl anation Advance Directives and Livin g Will 12/04/2019 12:47 PM Advance Directives and Livin g Will 08/31/2020 6:41 PM Documents on File Type Date Recorded Patient Senior Regulatory Affairs Specialist Expl anation Advance Directives and Livin g Will 12/04/2019 12:47 PM Advance Directives and Livin g Will 08/31/2020 6:41 PM Documents on File Type Date Recorded Patient Senior Regulatory Affairs Specialist Expl anation Advance Directives and Livin g Will 12/04/2019 12:47 PM Advance Directives and Livin g Will 01/11/2021 12:23 PM Documents on File Type Date Recorded Patient Senior Regulatory Affairs Specialist Expl anation Advance Directives and Livin g Will 12/04/2019 12:47 PM Advance Directives and Livin g Will 03/08/2021 12:23 PM Latest Code Status on File Code Status Date Activated Date Inactivated Comments Full Code 03/08/2021 5:11 PM 03/12/2021 8:19 PM Documents on File Type Date Recorded Patient Senior Regulatory Affairs Specialist Expl anation Advance Directives and Livin g Will 03/08/2021 12:23 PM Advance Directives and Livin g Will 12/04/2019 12:47 PM Documents on File Type Date Recorded Patient Senior Regulatory Affairs Specialist Expl anation Advance Directives and Livin g Will 04/05/2021 6:57 PM Advance Directives and Livin g Will 12/04/2019 12:47 PM Latest Code Status on File Code Status Date Activated Date Inactivated Comments Full Code 04/06/2021 8:19 AM 04/17/2021 3:27 PM Full Code 04/06/2021 12:08 AM 04/06/2021 8:18 AM Full Code 04/05/2021 11:54 PM 04/06/2021 12:08 AM Full Code 03/08/2021 5:11 PM 03/12/2021 8:19 PM Documents on File Type Date Recorded Patient Senior Regulatory Affairs Specialist Expl anation Advance Directives and Livin g Will 04/27/2021 4:07 PM Advance Directives and Livin g Will 12/04/2019 12:47 PM Latest Code Status on File Code Status Date Activated Date Inactivated Comments Full Code - Unverified 04/27/2021 5:18 PM 05/11/2021 5:4 0 PM Full Code 04/06/2021 8:19 AM 04/17/2021 3:27 PM Full Code 04/06/2021 12:08 AM 04/06/2021 8:18 AM Full Code 04/05/2021 11:54 PM 04/06/2021 12:08 AM Full Code 03/08/2021 5:11 PM 03/12/2021 8:19 PM Documents on File Type Date Recorded Patient Senior Regulatory Affairs Specialist Expl anation Advance Directives and Livin g Will 04/27/2021 4:07 PM Advance Directives and Livin g Will 12/04/2019 12:47 PM Latest Code Status on File Code Status Date Activated Date Inactivated Comments Full Code - Unverified 04/27/2021 5:18 PM 05/11/2021 5:4 0 PM Full Code 04/06/2021 8:19 AM 04/17/2021 3:27 PM Latest Code Status on File Date Activated Date Inactivated Comments 04/27/2021 5:18 PM 05/11/2021 5:40 PM Full Code Date Activated Date Inactivated Comments 04/06/2021 8:19 AM 04/17/2021 3:27 PM Full Code Date Activated Date Inactivated Comments 04/06/2021 12:08 AM 04/06/2021 8:18 AM Full Code Date Activated Date Inactivated Comments 04/05/2021 11:54 PM 04/06/2021 12:08 AM Full Code Date Activated Date Inactivated Comments 03/08/2021 5:11 PM 03/12/2021 8:19 PM Latest Code Status on File Code Status Date Activated Date Inactivated Comments Full Code - Unverified 04/27/2021 5:18 PM 05/11/2021 5:4 0 PM Code Status History Code Status Date Activated Date Inactivated Comments Full Code 04/06/2021 8:19 AM 04/17/2021 3:27 PM Full Code 04/06/2021 12:08 AM 04/06/2021 8:18 AM Full Code 04/05/2021 11:54 PM 04/06/2021 12:08 AM Full Code 03/08/2021 5:11 PM 03/12/2021 8:19 PM Latest Code Status on File Code Status Date Activated Date Inactivated Comments Full Code - Unverified 04/27/2021 5:18 PM 05/11/2021 5:4 0 PM Code Status History Code Status Date Activated Date Inactivated Comments Full Code 04/06/2021 8:19 AM 04/17/2021 3:27 PM Full Code 04/06/2021 12:08 AM 04/06/2021 8:18 AM Full Code 04/05/2021 11:54 PM 04/06/2021 12:08 AM Full Code 03/08/2021 5:11 PM 03/12/2021 8:19 PM Latest Code Status on File Code Status Date Activated Date Inactivated Comments Full Code 02/27/2023 4:02 PM 03/02/2023 7:40 PM Code Status History Code Status Date Activated Date Inactivated Comments Full Code - Unverified 04/27/2021 5:18 PM 05/11/2021 5:4 0 PM Full Code 04/06/2021 8:19 AM 04/17/2021 3:27 PM Full Code 04/06/2021 12:08 AM 04/06/2021 8:18 AM Full Code 04/05/2021 11:54 PM 04/06/2021 12:08 AM Latest Code Status on File Code Status Date Activated Date Inactivated Comments Full Code 02/27/2023 4:02 PM 03/02/2023 7:40 PM Code Status History Code Status Date Activated Date Inactivated Comments Full Code - Unverified 04/27/2021 5:18 PM 05/11/2021 5:4 0 PM Full Code 04/06/2021 8:19 AM 04/17/2021 3:27 PM Full Code 04/06/2021 12:08 AM 04/06/2021 8:18 AM Full Code 04/05/2021 11:54 PM 04/06/2021 12:08 AM Date Activated Date Inactivated Comments 02/27/2023 4:02 PM 03/02/2023 7:40 PM Date Activated Date Inactivated Comments 04/27/2021 5:18 PM 05/11/2021 5:40 PM Date Activated Date Inactivated Comments 04/06/2021 8:19 AM 04/17/2021 3:27 PM Date Activated Date Inactivated Comments 04/06/2021 12:08 AM 04/06/2021 8:18 AM Date Activated Date Inactivated Comments 04/05/2021 11:54 PM 04/06/2021 12:08 AM Date Activated Date Inactivated Comments 02/27/2023 4:02 PM 03/02/2023 7:40 PM Date Activated Date Inactivated Comments 04/27/2021 5:18 PM 05/11/2021 5:40 PM Date Activated Date Inactivated Comments 04/06/2021 8:19 AM 04/17/2021 3:27 PM Date Activated Date Inactivated Comments 04/06/2021 12:08 AM 04/06/2021 8:18 AM Date Activated Date Inactivated Comments 04/05/2021 11:54 PM 04/06/2021 12:08 AM Healthcare Agents on File Name Relationship Healthcare Agent Abigail p Communication Isabelle Dunham Spouse Health Care Agent Healthcare Agents on File Name Relationship Healthcare Agent Abigail p Communication Isabelle Dunham Spouse Health Care Agent Advance Directive Response Recorded Date/ Time Do you have a Healthcare Power of Reinforced Ironworker? Yes April 10, 2025 3:33pm Name of Medical Power of Reinforced Ironworker DAUGHTER ANIKET April 10, 2025 3:33pm Reason for Referral Status Reason Specialty Diagnoses / Procedures Re ferred By Contact Referred To Contact Closed Cardiology Diagnoses Chest pain, unspecified type Procedures Dobutamine stress echocardiogram Aquiles Herrera MD [address] [address] Status Reason Specialty Diagnoses / Procedures Referre d By Contact Referred To Contact Closed Cardiology Diagnoses Bilateral carotid artery stenosis Procedures Carotid Duplex Aquiles Herrera MD [address] [address] Status Reason Specialty Diagnoses / Procedures Referre d By Contact Referred To Contact Closed Radiology Diagnoses Screening for malignant neoplasm of respiratory organ Cigarette Smoker Procedures CT Lung Cancer Screening Lola Cruz MD [address] [place] [address] Status Reason Specialty Diagnoses / Procedures Referred By Contact Referred To Contact Pending Review Radiology Diagnoses Cigarette Smoker Screening for malignant neoplasm of respiratory organ Procedures CT Lung Cancer Screening Lola Cruz MD [address] [place] [id number] Status Reason Specialty Diagnoses / Procedures Re ferred By Contact Referred To Contact Closed Cardiology Diagnoses Stenosis of left carotid artery History of right-sided carotid endarterectomy Procedures Carotid Duplex Cameron Munguia III, DO [address] [place] [address] Status Reason Specialty Diagnoses / Procedures Referre d By Contact Referred To Contact Closed Cardiology Diagnoses Stenosis of left iliac artery (HCC) Procedures Segmental Doppler Lower Extremity Arterial W Exercise Cameron Munguia III, DO [address] [place] [address] Status Reason Specialty Diagnoses / Procedures Referre d By Contact Referred To Contact Closed Radiology Diagnoses Chest pain, unspecified type PVD (peripheral vascular disease) (HCC) Procedures NM Myocardial Perfusion Multiple SPECT Aquiles Herrera MD [address] [address] Status Reason Specialty Diagnoses / Procedures Referre d By Contact Referred To Contact Closed Radiology Diagnoses Screening for malignant neoplasm of respiratory organ Cigarette Smoker Procedures CT Lung Cancer Screening Lola Cruz MD [address] [place] [id number] Status Reason Specialty Diagnoses / Procedures Referre d By Contact Referred To Contact Closed Radiology Diagnoses Nipple pain Procedures Mammography Diagnostic Bilateral Phyllis Mae MD [address] [place] [address] Status Reason Specialty Diagnoses / Procedures Re ferred By Contact Referred To Contact Pending Review Cardiology Diagnoses Left carotid artery stenosis History of carotid endarterectomy Procedures Carotid Duplex Cameron Munguia III, DO [address] [place] [address] Status Reason Specialty Diagnoses / Procedures Re ferred By Contact Referred To Contact Authorized Cardiology Diagnoses Stenosis of left carotid artery History of right-sided carotid endarterectomy Procedures Carotid Duplex Cameron Munguia III, DO [address] [place] [address] Status Reason Specialty Diagnoses / Procedures Referred By Contact Referred To Contact Authorized Cardiology Diagnoses Stenosis of left iliac artery (HCC) Procedures Segmental Doppler Lower Extremity Arterial W Exercise Cameron Munguia III, DO [address] [place] [address] Status Reason Specialty Diagnoses / Procedures Referred By Contact Referred To Contact Closed Vascular Surgery / Cardiology Diagnoses Chest pain, unspecified type Bilateral carotid artery stenosis Aquiles Herrera MD [address] [address] Cameron Munguia III, DO [address] [place] [address] Status Reason Specialty Diagnoses / Procedures Referre d By Contact Referred To Contact Closed Cardiology Diagnoses Prominent abdominal aortic pulse Procedures Ultrasound abdominal aorta duplex limited Aquiles Herrera MD [address] [place] [phone] Status Reason Specialty Diagnoses / Procedures Referred By Contact Referred To Contact Pending Review Patient Preference Home Health Services Diagnoses Acute UTI Metabolic encephalopathy Neck pain PAD (peripheral artery disease) ([facility]) PVD (peripheral vascular disease) ([facility]) Type 2 diabetes mellitus with stage 3b chronic kidney disease, with long-term current use of insulin ([facility]) Essential hypertension ELBA (acute kidney injury) ([facility]) Bryce Alvarez MD [address] [place] [address] Specialty Diagnoses / Procedures Referred By Contac t Referred To Contact Cardiology Diagnoses GREEN (dyspnea on exertion) Procedures Echocardiogram complete Aquiles Herrera MD [address] [address] Referral ID Status Reason Start Date Expiration Date V isits Requested Visits Authorized [id number] Pending Review 06/02/2022 06/02/2023 1 1 Specialty Diagnoses / Procedures Referred By Contac t Referred To Contact Wound Care Diagnoses Non-pressure chronic ulcer of left lower leg, 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) Christopher Galindo PA-C [address] [place] [address] Maureen Brown MD [address] [email or web address] [address] [place] [address] Referral ID Status Reason Start Date Expiration Date Visits Requested Visits Authorized [id number] Authorized Specialty Services Required/Pat jose ramonzeus's Best Interest 11/10/2022 11/10/2023 1 1 Specialty Diagnoses / Procedures Referred By Contac t Referred To Contact Radiology Diagnoses 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HCC) Procedures NM Brain Datscan SPECT CT Single Area Single Day Deshaun Rodrigues MD [address] [address] Nuclear Medicine [address] [place] [phone] Referral ID Status Reason Start Date Expiration Date V isits Requested Visits Authorized [id number] New Request 04/05/2023 04/04/2024 4 4 Specialty Diagnoses / Procedures Referred By Contac t Referred To Contact Podiatry Diagnoses Diabetic polyneuropathy associated with type 2 diabetes mellitus (HCC) Deshaun Rodrigues MD [address] [place] [phone] BHUMIKA Lin, DPM [address] [facility] [address] [place] [phone] Referral ID Status Reason Start Date Expiration Date V isits Requested Visits Authorized [id number] Pending Review 10/11/2023 10/10/2024 1 1 Specialty Diagnoses / Procedures Referred By Contac t Referred To Contact Home Health Services Diagnoses Gait difficulty Muscle weakness of lower extremity Recurrent falls Phyllis Mae MD [address] [place] [address] [place] [phone] [place] [address] Referral ID Status Reason Start Date Expiration Date Visits Requested Visits Authorized [id number] Pending Review Specialty Services Required 12/14/2023 12/13/2024 [id number] Specialty Diagnoses / Procedures Referred By Contac t Referred To Contact Cardiology Diagnoses Diabetic foot (HCC) PVD (peripheral vascular disease) (HCC) Type 2 diabetes mellitus with stage 3b chronic kidney disease, with long-term current use of insulin (HCC) Claudication of lower extremity (HCC) Tobacco use Xerosis of skin Onychodystrophy Procedures Segmental Doppler Lower Extremity Arterial BHUMIKA Lin, DPM [address] [place] [address] [facility] 335 [facility] [place] [address] Referral ID Status Reason Start Date Expiration Date V isits Requested Visits Authorized [id number] Authorized 12/19/2023 12/18/2024 1 1 Specialty Diagnoses / Procedures Referred By Contac t Referred To Contact Home Health Services Diagnoses Weakness of upper extremity Weakness of both lower extremities Recurrent falls Neck pain H/O: CVA (cerebrovascular accident) Essential tremor Neurogenic claudication Phyllis Mae MD [address] [place] [address] [phone] Referral ID Status Reason Start Date Expiration Date Visits Requested Visits Authorized [id number] Pending Review Specialty Services Required 02/27/2024 02/26/2025 [id number] Specialty Diagnoses / Procedures Referred By Contac t Referred To Contact Hematology and Oncology Diagnoses Thrombocytopenia ([facility]) Phyllis Mae MD [address] [place] [address] Referral ID Status Reason Start Date Expiration Date Visits Requested Visits Authorized [id number] Authorized Specialty Services Required 07/25/2024 07/25/2025 1 1 Specialty Diagnoses / Procedures Referred By Contac t Referred To Contact Radiology Diagnoses Thrombocytopenia ([facility]) Procedures US abdomen limited liver Phyllis Mae MD [address] [place] [address] Referral ID Status Reason Start Date Expiration Date Visits Requested Visits Authorized [id number] Authorized Perform Procedure 07/25/2024 07/25/2025 1 1 Specialty Diagnoses / Procedures Referred By Adrianna iqbal Referred To Contact Home Health Services Diagnoses Chronic obstructive pulmonary disease, unspecified Phyllis Mae MD [address] [place] [address] Referral ID Status Reason Start Date Expiration Date Visits Requested Visits Authorized [id number] Authorized Specialty Services Required 07/25/2024 07/25/2025 [id number] Discharge Instructions * Discharge Instr - Other Orders* Faith Richey RN - 11/13/2018 1:[address] Galvez assessed the IV site post Dobutamine infusion. Patient had no complaints. Patient instructed to watch the site and return to the ER or call the office if symptoms occur. Jeremias Richey RN in this encounter* Instructions* Wendy Ernst PA-C - 05/27/2019 Please take medication as prescribed. Recommend doing your breathing treatments throughout the day.Follow-up with your primary care doctor within 1 to 2 days. If symptoms worsen or persist please present back to the emergency department. * Attachments The following attachments cannot be sent through Care Everywhere. * Pneumonia (Israeli) documented in this encounter* Instructions* Silvia Ken RN - 06/05/2019 Using a Metered-Dose Inhaler: Care Instructions Your Care Instructions A metered-dose inhaler lets you breathe medicine into your lungs quickly. Inhaled medicine works faster than the same medicine in a pill. An inhaler allows you to take less medicine than you would need if you took it as a pill. "Metered-dose" means that the inhaler gives a measured amount of medicine each time you use it. A metered-dose inhaler gives medicine in the form of a liquid mist. Your doctor may want you to use a spacer with your inhaler. A spacer is a chamber that you attach to the inhaler. The chamber holds the medicine before you inhale it. That way, you can inhale the medicine in as many breaths as you need. Doctors recommend using a spacer with most metered-dose inhalers, especially those with corticosteroid medicines. Follow-up care is a rasmussen part of your treatment and safety. Be sure to make and go to all appointments, and call your doctor if you are having problems. It's also a good idea to know your test resultsand keep a list of the medicines you take. How can you care for yourself at home? To get started using your inhaler Talk with your health care provider to be sure you are using your inhaler the right way. It might help if you practice using it in front of a mirror. Use the inhaler exactly as prescribed. Check that you have the correct medicine. If you use more than one inhaler, put a label on each one. This will let you know which one to use at the right time. Keep track of how much medicine is in the inhaler. Check the label to see how many doses are in thecontainer. If you know how many puffs you can take, you can replace the inhaler before you run out.Ask your health care provider how you can keep track of how much medicine is left. Use a spacer if you have problems pressing the inhaler and breathing in at the same time. You also may need a spacer if you are using corticosteroid medicines. If you are using a corticosteroid inhaler, gargle and rinse out your mouth with water after use. Donot swallow the water. Swallowing the water will increase the chance that the medicine will get into your bloodstream. This may make it more likely that you will have side effects. To use a spacer with an inhaler 1. Shake the inhaler. Remove the inhaler cap, and place the mouthpiece of the inhaler into the spacer. Check the inhaler instructions to see if you need to prime your inhaler before you use it. If itneeds priming, follow the instructions on how to prime your inhaler. 2. Remove the cap from the spacer. 3. Hold the inhaler upright with the mouthpiece at the bottom. 4. Tilt your head back a little, and breathe out slowly and completely. 5. Place the spacer's mouthpiece in your mouth. 6. Press down on the inhaler to spray one puff of medicine into the spacer, and then start breathing in slowly. Wait to inhale until after you have pressed down on the inhaler. Some spacers have a whistle. If you hear it, you should breathe in more slowly. 7. Hold your breath for 10 seconds. This will let the medicine settle in your lungs. 8. If you need to take a second dose, wait 30 to 60 seconds to allow the inhaler valve to refill. To use an inhaler without a spacer 1. Shake the inhaler as directed. Remove the cap. Check the instructions to see if you need to prime your inhaler before you use it. If it needs priming, follow the instructions on how to prime your inhaler. 2. Hold the inhaler upright with the mouthpiece at the bottom. 3. Tilt your head back a little, and breathe out slowly and completely. 4. Position the inhaler in one of two ways: ? You can place the inhaler in your mouth. This is easier for most people. And it lowers the risk that any of the medicine will get into your eyes. ? Or you can place the inhaler 1 to 2 inches in front of your open mouth, without closing your lipsover it. Try to open your mouth as wide as you can. Placing the inhaler in front of your open mouthmay be better for getting the medicine into your lungs. But some people may find this too hard to do. 5. Start taking slow, even breaths through your mouth. Press down on the inhaler once, then inhale fully. 6. Hold your breath for 10 seconds. This will let the medicine settle in your lungs. 7. If you need to take a second dose, wait 30 to 60 seconds to allow the inhaler valve to refill. Where can you learn more? Log into your personal health record on [email or web address] and enter K111 in the "Education" box to learn more about "Using a Metered-Dose Inhaler: Care Instructions." Current as of: July 04, 2018 Content Version: [id number] [employer]. Care instructions adapted under license by your healthcare professional. If you have questions about a medical condition or this instruction, always ask your healthcare professional. [employer] disclaims any warranty or liability for your use of this information. Avoiding COPD Triggers (01:49) Your health professional recommends that you watch this short online health video. Learn how to avoid the things that make your COPD symptoms worse. How to watch the video Scan the QR code OR Visit the website [email or web address]://[email or web address] Current as of: July 04, 2018 Content Version: . [employer]. Care instructions adapted under license by your healthcare professional. If you have questions about a medical condition or this instruction, always ask your healthcare professional. [employer] disclaims any warranty or liability for your use of this information. Breathing treatments as prescribed. Continue antibiotics. * Attachments The following attachments cannot be sent through Care Everywhere. * COPD Exacerbation Plan (Israeli) documented in this encounter* Attachments The following attachments cannot be sent through Care Everywhere. * Alcohol Use Disorder: General Info (Israeli) * Fall Prevention (Israeli) documented in this encounter* Instructions* Ray Scherer MD - 06/10/2020 Hold ASA and Plavix til the * Attachments The following attachments cannot be sent through Care Everywhere. * Rib Fracture (Israeli) * Facial Fracture (Israeli) documented in this encounter Chief Complaint F/U HOSPITAL/CARE HOME. HAS BEEN B/P MEDS X [address] AT HOSPITAL CALLED IN TRAMADOL BUT IT ISNOT CONTROLLING THE PAIN. THE HOSPITAL D/C A LOT OF HIS MEDS AND PT AND HIS WANTS TO DISCUSS TO YOU.F/U HOSPITAL/CARE HOME. HAS BEEN B/P MEDS X 2 WEEKS. AT HOSPITAL CALLED IN TRAMADOL BUT IT ISNOT CONTROLLING THE PAIN. THE HOSPITAL D/C A LOT OF HIS MEDS AND PT AND HIS WANTS TO DISCUSS TO YOU.1 MO FU SPINE AND NECK XRAYS1 MONTH F/U. DOING PT 3 TIMES A WEEK1 MONTH F/U. DOING PT 3 TIMES A WEEK3 WEEK F/U WITH LABS. HAND GRINDER D/C NIFEDIPINE LAST WEEK DUE TO LOW B/P. PATIENT CONTINUES PHYSICAL THERAPY FOR LOW BACK PAIN WHICH HAS BEEN BENEFICIAL. STILL HAS TROUBLE SLEEPING AT NIGHT BUT TRAZODONE DOES HELP. C/O ITCHY AND WATERY EYES FOR THE LAST COUPLE WEEKS - VISINE TX WITH NO RELIEF.3 WEEK F/U WITH LABS. HAND GRINDER D/C NIFEDIPINE LAST WEEK DUE TO LOW B/P. PATIENT CONTINUES PHYSICAL THERAPY FOR LOW BACK PAIN WHICH HAS BEEN BENEFICIAL. STILL HAS TROUBLE SLEEPING AT NIGHT BUT TRAZODONE DOES HELP. C/O ITCHY AND WATERY EYES FOR THE LAST COUPLE WEEKS - VISINE TX WITH NO RELIEF.3 WEEK F/U WITH LABS. HAND GRINDER D/C NIFEDIPINE LAST WEEK DUE TO LOW B/P. PATIENT CONTINUES PHYSICAL THERAPY FOR LOW BACK PAIN WHICH HAS BEEN BENEFICIAL. STILL HAS TROUBLE SLEEPING AT NIGHT BUT TRAZODONE DOES HELP. C/O ITCHY AND WATERY EYES FOR THE LAST COUPLE WEEKS - VISINE TX WITH NO RELIEF. F/U LABS.MEDICARE WELLNESS AND F/U. NO COMPLAINTSMEDICARE WELLNESS AND F/U. NO COMPLAINTSMEDICARE WELLNESS AND F/U. NO COMPLAINTSFU VISIT U/S AORTA NO CONCERNS TODAYF/U VASCULAR. PT WANTS RX FOR ISOSORBIDE - ONE DAILY. NEEDS MED REFILLSF/U VASCULAR. PT WANTS RX FOR ISOSORBIDE - ONE DAILY. NEEDS MED REFILLSPT HERE TODAY FOR 3 MO F/U. PT C/O CHEST PAIN. PT STATES THEY HAVE BEEN ONGOING FOR A FEW MONTHS. PT STATES HIS LEGS FEEL WEAK FOR MONTHS Chief Complaint and Reason for Visit Chief Complaint Admit Date CARE HOME LAB WORK January 27, 2025 4 :00am Chief Complaint Admit Date CARE HOME LAB WORK January 27, 2025 4 :00am CARE HOME LAB WORK February 19, 2025 8 :10am CARE HOME LAB WORK February 23, 2025 5 :50pm R KNEE AND ANKLE PAIN, HYPOTENSION April 10, 2025 3:16pm Chief Complaint Admit Date CARE HOME LAB WORK January 27, 2025 4 :00am CARE HOME LAB WORK February 19, 2025 8 :10am CARE HOME LAB WORK February 23, 2025 5 :50pm R KNEE AND ANKLE PAIN, HYPOTENSION April 10, 2025 3:16pm CARE HOME LAB WORK April 16, 2025 4: 00am RIGHT FIBULA April 17, 2025 9:12 am Reason for Visit Admit Date Closed right ankle fracture April 17, 2 025 9:12am Additional Source Comments Assessment & Plan Note - Tristen Menjivar MD - 12/03/2017 11:55 AM ESTAssessment & Plan Note - Tristen Menjivar MD - 12/03/2017 11:54 AM EST Miscellaneous Notes (unrecog nized section and content) Associated Problem(s): Claudication of lower extremity (HCC) He has complaints of leg pain that are a mixed bag. I do think he has some sort of neurologic cause but he also has symptoms that may be related to peripheral arterial disease given the fact that his left leg is worse with exertion and this correlates with his noninvasive testing. I will have him continue Plavix 75 mg daily and start a statin as well as a trial of Pletal 50 mg twice daily. I will see him back in 3 months to see how he responds Associated Problem(s): Dyslipidemia He is a diabetic and a smoker with multiple beds vascular disease, regardless of his LDL, he should be on a statin with a target LDL of 70, I started him on lovastatin 10 mg daily and we will see how his lipids respond to this Associated Problem(s): PAD (peripheral artery disease) (HCC) Abnormal lower extremity arterial duplex with symptoms suggestive of left calf claudication, continue antiplatelet therapy and I will add lovastatin 10 mg daily as well as a trial of Pletal 50 mg twice daily. Associated Problem(s): Bilateral carotid artery stenosis History of right carotid endarterectomy, continue antiplatelet therapy. Last carotid duplex was March 2016 which shows patent endarterectomy and mild disease in the left. Surprisingly he is not on statin so I will add that today.in this encounter Associated Problem(s): Abnormal stress test Atypical left lateral chest pain beneath the left breast. Nonexertional no change. Certainly when he had for the last few years. No particular shortness of breath. He is bothered by claudication lower extremities continue to follow with vascular. History of known peripheral vascular disease per forcing continues to smoke we discussed that. No change medication to cardiac standpoint. Keep regular follow-up 1 year. Told him to let us know he has any change or progression in his chest pain pattern.in this encounter Associated Problem(s): Abnormal stress test Chronic dyspnea on exertion continues to smoke. Follows with nephrology, pulmonary hematology. Is on Lyrica per PCP complains of chronic numbness left side of his body. No clear-cut anginal symptoms. Very atypical chest discomfort at times. Heart rate 81 blood pressure 165/92 we will try to get him on a long-acting beta-danny instead of the short acting propranolol 20 mg twice a day try Inderal LA 80 mg daily if not approved by pharmacy we will go with metoprolol XL. Otherwise continues on dual antiplatelet therapy apparently came back to his history of stroke. No history of any coronary intervention. Continue to follow. Certainly he had clear-cut progressive anginal symptoms would consider repeat nuclear stress testing now little over 2 years we will hold off on at present time. documented in this encounter Associated Problem(s): Abnormal stress test Denies any significant chest pains. Said he recently stated a [place] had to walk up 2 flights of stairs on a regular basis. Denies significant shortness of breath with that. Does have some discomfort in his legs calves bilaterally polyneuropathy no clear-cut claudication symptoms will be following up with vascular near future cardiac exam unremarkable. Blood pressure is elevated today 170/93 pulse 78 and regular O2 sat 96%. We will go ahead and add amlodipine 2.5 mg daily for his blood pressure. Previous stress testing reviewed no history of SD no history of heart catheterization. History of PAD and history of stroke. Patient is asking for Viagra he is on no nitroglycerin products trial of the 50 mg size if no ill effects and poor response could go with the 100 mg total. Reviewed that he cannot take nitroglycerin which he is not been on or have available with that medication. documented in this encounter Associated Problem(s): EtOH dependence (HCC) See note Associated Problem(s): Fall down stairs Intoxication Trauma quick Note: CT images reviewed without traumatic injury. Patient reassessed, tertiary assessment completed. Verified that the patient only takes Plavix at home. Patient is clinically sober, c-collar cleared per protocol. Has f/u appointment scheduled with his PCP . 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 documented in this encounter Associated Problem(s): Closed fracture of multiple ribs of left side Left rib 7 and 8 fracture noted on chest xray. RA, pain well controlled. IS Associated Problem(s): Closed fracture of left orbital floor (HCC) Impacted comminuted fracture lateral and anterior wall of left maxillary sinus, latter extending to the infraorbital rim Minimally displaced fracture of orbit floor. Left lateral wall of orbit. Left maxillary air cell attenuation consistent with hemorrhage. Transfer from [place] for Trauma tertiary evaluation. Loading CT head, maxface, cervical spine. Left eye edema and ecchymosis, no visual deficit, no noted entrapment. Consult to ENT Will discuss antibiotics with ENT. documented in this encounter Reason for Visit (unrecogniz ed section and content) Reason Comments Anemia Status Reason Specialty Diagnoses / Procedures Re ferred By Contact Referred To Contact Closed Cardiology Diagnoses Chest pain, unspecified type Procedures Dobutamine stress echocardiogram Aquiles Herrera MD [address] [address] Status Reason Specialty Diagnoses / Procedures Referre d By Contact Referred To Contact Closed Cardiology Diagnoses Bilateral carotid artery stenosis Procedures Carotid Duplex Aquiles Herrera MD [address] [address] Status Reason Specialty Diagnoses / Procedures Referre d By Contact Referred To Contact Closed Radiology Diagnoses Screening for malignant neoplasm of respiratory organ Cigarette Smoker Procedures CT Lung Cancer Screening Lola Cruz MD [facility] [place] [address] Reason Comments Follow-up LDCT chest Reason Comments Follow-up pt states he has had numbness on the Left side of his face for 3 months Chest Pain Reason Comments Cough Nasal Congestion Reason Comments monoclonal gammopathy Reason Comments Pneumonia Diagnosed w/PNA. Wan ts to be checked to make sure he is getting better. Reason Comments Follow-up 6 mo ov Reason Comments Diabetes Mellitus Status Reason Specialty Diagnoses / Procedures Referred By Contact Referred To Contact Closed Specialty Services Required/Patient 's Best Interest Endocrinology Diagnoses Inadequately controlled diabetes mellitus (HCC) Phyllis Mae MD [address] [place] [phone] Susan Baptiste MD [address] [address] Reason Comments Trauma Stroke Alert Status Reason Specialty Diagnoses / Procedures Referre d By Contact Referred To Contact Closed Radiology Diagnoses Chest pain, unspecified type PVD (peripheral vascular disease) (HCC) Procedures NM Myocardial Perfusion Multiple SPECT Aquiles Herrera MD [address] [place] [phone] Status Reason Specialty Diagnoses / Procedures Referre d By Contact Referred To Contact Closed Radiology Diagnoses Screening for malignant neoplasm of respiratory organ Cigarette Smoker Procedures CT Lung Cancer Screening Lola Cruz MD [address] [place], [place] [phone] Reason Comments Trauma Status Reason Specialty Diagnoses / Procedures Referre d By Contact Referred To Contact Closed Radiology Diagnoses Nipple pain Procedures Mammography Diagnostic Bilateral Phyllis Mae MD [address] [place] [phone] Reason Comments TELEHEALTH PH. [phone] -6M O Shortness of Breath W/ EXERTION lightheaded upon standing Fatigue Reason Comments Follow-up seg, car Reason Comments Follow-up review abd/carotid Status Reason Specialty Diagnoses / Procedures Referred By Contact Referred To Contact Closed Vascular Surgery / Cardiology Diagnoses Chest pain, unspecified type Bilateral carotid artery stenosis Aquiles Herrera MD [address] [address] Cameron Munguia III, DO [address] [place] [id number] Reason Comments Medication Refill Reason Comments proactive outreach Status Reason Specialty Diagnoses / Procedures Referre d By Contact Referred To Contact Closed Cardiology Diagnoses Prominent abdominal aortic pulse Procedures Ultrasound abdominal aorta duplex limited Aquiles Herrera MD [address] [address] Reason Comments Follow-up Reason Comments Abnormal Lab Status Reason Specialty Diagnoses / Procedures Referre d By Contact Referred To Contact Diagnoses ELBA (acute kidney injury) (HCC) Reason Comments Follow-up Suture / Staple Removal Reason Comments Follow-up Overdue -last seen -Eye Noticed 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 Hi s states his mom and sister shakes pretty bad with parkinson. She states she is unsure he had a seizure. stated she has not been giving him the seizure medication for she was unsure if he needs it. Reason Comments Medication Refill Lovastatin Reason Comments Hospital Follow-up F/U HOSPITAL DISCHAR [facility] 02/27/23 - COPD EXACERBATION, LEFT RIB PAIN. Reason Comments Tremors Patient states that his tremors are doing okay. states that they are doing better. Reason Onset Date Comments Medication Refill 05/15/2023 Reason Comments Follow-up Overdue ov Reason Comments Follow-up LABS AND REFILLS Reason Comments Tremors Patient states that things have been going well. states that he has not had any falls, but she is concerned about his memory. Reason Comments Diabetes Mellitus There are no prevent dequan care reminders to display for this patient. Reason Comments Follow-up GENERAL CHECK UP. WA NTS THERAPY Reason Onset Date Comments Hyperglycemia 12/19/2023 Medication Refill 12/19/2023 Reason Comments Diabetic Foot Exam A1c: 8.6DLS: 10/11/ 3 Wound Check Right foot wound clement ck on toes. They state he also has dry feet bad. Reason Onset Date Comments Medication Refill 12/20/2023 Reason Onset Date Comments Medication Refill 01/04/2024 Reason Comments Med Change Request Reason Onset Date Comments Medication Refill 02/14/2024 Reason Onset Date Comments Medication Refill 02/21/2024 Reason Comments URI Sore throat, cough, congest Reason Comments Medicare Annual Wellness Visit Subsequen t Medicare wellness. Did not do labs Reason Comments Nail Care Go over doppler resu lts Reason Comments Diabetes Mellitus Gap Closure (Health Maintenance) There a re no preventive care reminders to display for this patient. Reason Comments Foot Problem Right great toe pain ful sore at base of the great toenail Reason Comments Nail Care Reason Comments Diabetes Mellitus Gap Closure (Health Maintenance) There a re no preventive care reminders to display for this patient. Reason Comments Follow-up Yearly/ Ream - chest pain across his chest, last episode this morning. Happens a couple times a day. Reason Onset Date Comments Medication Refill 09/10/2024 Reason Comments Nail Care Diabetic Nail CareDL S: 09/04/2024A1C: 7.6 Medication Refill Ammonium Lactate cre am Reason Comments Follow-up Reason Comments Follow-up F/U LABS; NO COMPLAI NTS TODAY Reason Onset Date Comments Medication Refill 11/05/2024 Reason Comments Medicare Annual Wellness Visit Subsequen t MEDICARE WELLNESS. PATIENT'S IN JULY 2024 AND HE HAS BEEN LIVING WITH SON AND [id number] BUT ATTEMPTED ADMISSION TO [facility]. C/O EPISODES OF HYPOGLYCEMIA - DOESN'T TAKE LANTUS EVERY MORNING IF GLUCOSE IS LOW. REQUESTING NICOTINE PATCH FOR SMOKING CESSATION. Reason Onset Date Comments Medication Refill 11/07/2024 Reason Onset Date Comments Medication Refill 11/12/2024 Reason Onset Date Comments Medication Refill 11/25/2024 Reason Comments Follow-up Follow up 1 month Reason Comments Nail Care nail care (unrecognized sect ion and content) No Status Records FoundNo Status Records FoundNo Status Records FoundNo Status Records FoundNo Status Records FoundNo Status Records FoundNo Status Records FoundNo Status Records FoundNo Status Records FoundNo Status Records FoundNo Status Records FoundNo Status Records FoundNo Status Records FoundNo Status Records FoundNo Status Records Found INFORMATION SOURCE (unrecogn ized section and content) DATE CREATED AUTHOR 11/16/2018 [facility] DATE CREATED AUTHOR AUTHOR'S ORGANIZ ATION 11/23/2018 [facility] DATE CREATED AUTHOR AUTHOR'S ORGANIZ ATION 12/11/2018 [facility] DATE CREATED AUTHOR AUTHOR'S ORGANIZ ATION 07/05/2019 [facility] DATE CREATED AUTHOR AUTHOR'S ORGANIZ ATION 04/14/2020 [facility] DATE CREATED AUTHOR AUTHOR'S ORGANIZ ATION 05/21/2020 [facility] DATE CREATED AUTHOR AUTHOR'S ORGANIZ ATION 11/11/2022 [facility] DATE CREATED AUTHOR AUTHOR'S ORGANIZ ATION 12/30/2022 [facility] DATE CREATED AUTHOR AUTHOR'S ORGANIZ ATION 12/30/2022 [facility] DATE CREATED AUTHOR AUTHOR'S ORGANIZ ATION 08/07/2024 [facility] DATE CREATED AUTHOR AUTHOR'S ORGANIZ ATION 09/27/2024 [facility] DATE CREATED AUTHOR AUTHOR'S ORGANIZ ATION 11/15/2024 [facility] DATE CREATED AUTHOR AUTHOR'S ORGANIZ ATION 01/04/2025 [facility] DATE CREATED AUTHOR AUTHOR'S ORGANIZ ATION 03/11/2025 [facility] DATE CREATED AUTHOR AUTHOR'S ORGANIZ ATION 04/20/2025 [facility] Esmer Cheng RN - 05/27/2019 12:40 PM Esmer Ramirez RN - 05/27/2019 12:31 PM Esmer Ramirez RN - 05/27/2019 12:27 PM Esmer Ramirez RN - 05/27/2019 12:20 PM EDT ED Notes (unrecognized secti on and content) Pt 96% on room air, pt denies wheelchair out to waiting room, pt ambulatory with cane, no s/s of distress, resp =/unlabored, pt instructed to finish atbx as prescribed and follow up with PCP, pt encouraged to come back here if new or worsening s/s occur, pt verbalizes understanding RT AT BEDSIDE FOR BREATHING TREATMENT Wendy LEMUS states she talked to pt recommending admission, pt states he does not want to stay, risks and benefits of staying vs leaving discussed by pt and Wendy LEMUS, pt still wants to leave, agrees to sign out AMA, pt A&Ox4 Called RT for breathing treatment ED PROVIDER NOTE [facility] EMERGENCY DEPARTMENT NAME: Stevo Elizalde AGE: 69 y.o. : 1950 VISIT DATE: 05/27/2019 CSN: [id number] PCP: Phyllis Mae MD Chief Complaint Patient presents with Cough Nasal Congestion Patient with a history of COPD presents to the emergency department for complaint of cough and congestion started yesterday. States that cough is productive and producing yellow sputum. Denies fever and chills. Explains that his chest only hurts when he is coughing or taking a really deep breath. Denies shortness of breath. Patient explains that he did not even take his breathing treatment this morning. States that he was at Dr. Dewitt's office for a follow-up for his anemia they noted that his oxygen was low at 89% on room air. Patient is on 2 L of oxygen here but does not wear oxygen at home. Patient is a current smoker. Denies history of blood clots. Denies recent hospital admissions. Past Medical History: Diagnosis Date Arthritis Carotid artery occlusion CKD (chronic kidney disease) Stage III Claudication (HCC) COPD (chronic obstructive pulmonary disease) (HCC) Diabetes mellitus (HCC) Essential tremor History of pneumonia Hyperlipidemia Hypertension Leg cramps MGUS (monoclonal gammopathy of unknown significance) Peptic ulcer disease PVD (peripheral vascular disease) (HCC) Rhabdomyolysis 2010 Stroke (HCC) 2010 R side Past Surgical History: Procedure Laterality Date carotid angio 2010 HAND SURGERY Right 2009 MT THROMBOENDARTECTMY NECK,NECK INCIS Right 2010 SHOULDER OPEN ROTATOR CUFF REPAIR Left 2015 Family History Problem Relation Age of Onset Heart attack Father Diabetes Sister Heart attack Sister Stroke Sister Hypertension Sister Deep vein thrombosis Sister leg Ovarian cancer Sister Heart attack Brother Cancer Maternal Grandfather Cancer Paternal Grandmother Cancer Maternal Uncle Heart disease Sister Heart disease Sister Social History Socioeconomic History Marital status: Spouse name: Not on file Number of children: Not on file Years of education: Not on file Highest education level: Not on file Occupational History Occupation: Disability Comment: [employer] Social Needs Financial resource strain: Not on file Food insecurity: Worry: Not on file Inability: Not on file Transportation needs: Medical: Not on file Non-medical: Not on file Tobacco Use Smoking status: Current Every Day Smoker Packs/day: 1.00 Years: 55.00 Pack years: 55.00 Types: Cigarettes Smokeless tobacco: Never Used Tobacco comment: Former 3-4 ppd 40 years Substance and Sexual Activity Alcohol use: Yes Comment: occasional Drug use: No Sexual activity: Not on file Lifestyle Physical activity: Days per week: Not on file Minutes per session: Not on file Stress: Not on file Relationships Social connections: Talks on phone: Not on file Gets together: Not on file Attends mormonism service: Not on file Active member of club or organization: Not on file Attends meetings of clubs or organizations: Not on file Relationship status: Not on file Other Topics Concern Not on file Social History Narrative Pets: cat Positive PPD Previous Medications Medication Sig ACCU-CHEK ELLI PLUS TEST STRP strips by Miscellaneous route 2 (two) times a day TEST BLOOD SUGAR TWICE A DAY . ADVAIR DISKUS 500-50 mcg/dose diskus inhaler INHALE TWICE A DAY albuterol (PROVENTIL) 2.5 mg /3 mL (0.083 %) nebulizer solution Take 3 mL (2.5 mg total) by nebulization every 4 (four) hours as needed for wheezing . aspirin 81 MG EC tablet Take 81 mg by mouth daily . BD ULTRA-FINE SHORT PEN NEEDLE 31 gauge x 5/16" Ndle USE DIRECTED TWICE DAILY WITH LANTUS DX: DMII/E11.9 calcium-vitamin D (calcium-vitamin D) 500 mg(1,250mg) -200 unit per tablet Take 1 tablet by mouth 2 (two) times a day with meals . clopidogrel (PLAVIX) 75 mg tablet Take 75 mg by mouth daily. cyanocobalamin (vitamin B-12) 1000 MCG tablet Take 1,000 mcg by mouth daily. diphenoxylate-atropine (LOMOTIL) 2.5-0.025 mg per tablet Take 1 tablet by mouth as needed for diarrhea. famotidine (PEPCID) 20 MG tablet Take 20 mg by mouth 2 (two) times a day. folic acid (FOLVITE) 1 MG tablet Take 1 mg by mouth daily. gemfibrozil (LOPID) 600 MG tablet Take 600 mg by mouth 2 (two) times a day. LANTUS SOLOSTAR 100 unit/mL (3 mL) InPn INJECT 30 UNITS SUBCUTANEOUSLY TWICE A DAY lisinopril (PRINIVIL,ZESTRIL) 40 MG tablet Take 40 mg by mouth daily . loratadine (CLARITIN) 10 mg tablet Take 10 mg by mouth daily as needed for allergies. metFORMIN (GLUCOPHAGE) 500 MG tablet Take 500 mg by mouth 2 (two) times a day with meals. multivitamin with minerals tablet Take 1 tablet by mouth daily. ondansetron (ZOFRAN) 4 MG tablet Take 4 mg by mouth every 4 (four) hours as needed for nausea . oxyCODONE-acetaminophen (PERCOCET) 7.5-325 mg per tablet Take 1 tablet by mouth every 8 (eight) hours as needed Takes 1/2 tab. pantoprazole (PROTONIX) 40 MG tablet Take 40 mg by mouth daily. pregabalin (LYRICA) 75 MG capsule Take 50 mg by mouth 2 (two) times a day . propranolol (INDERAL LA) 80 MG 24 hr capsule Take 1 (one) capsule (80 mg total) by mouth daily . sodium bicarbonate 650 MG tablet Take 650 mg by mouth 2 (two) times a day. SPIRIVA WITH HANDIHALER 18 mcg inhalation capsule VENTOLIN HFA 90 mcg/actuation inhaler INHALE 2 PUFFS EVERY 4 HOURS NEEDED Allergies Allergen Reactions Chantix [Varenicline] Swelling Review of Systems Constitutional: Negative for activity change, chills, fatigue and fever. HENT: Positive for congestion. Negative for ear pain, hearing loss, postnasal drip, rhinorrhea, sore throat and trouble swallowing. Eyes: Negative for photophobia, pain, redness and visual disturbance. Respiratory: Positive for cough. Negative for chest tightness, shortness of breath and wheezing. Cardiovascular: Negative for chest pain, palpitations and leg swelling. Gastrointestinal: Negative for abdominal pain, constipation, diarrhea, nausea and vomiting. Genitourinary: Negative for difficulty urinating, dysuria, hematuria and urgency. Musculoskeletal: Negative for arthralgias, back pain, myalgias, neck pain and neck stiffness. Skin: Negative for color change and rash. Neurological: Negative for dizziness, speech difficulty, weakness, numbness and headaches. Psychiatric/Behavioral: Negative for agitation and suicidal ideas. The patient is not nervous/anxious. Patient Vitals for the past 24 hrs: BP Temp Temp src Pulse Resp SpO2 Height Weight 05/27/19 1224 95 % 07/29/19 1128 94 % 05/27/19 1125 145/87 98.2 F (36.8 C) Oral 84 18 (!) 89 % 5' 7" 66.2 kg (146 lb) Physical Exam Constitutional: He is oriented to person, place, and time. He appears well- developed and well-nourished. HENT: Head: Normocephalic and atraumatic. Mouth/Throat: Oropharynx is clear and moist. Eyes: Conjunctivae and EOM are normal. Pupils are equal, round, and reactive to light. Neck: Normal range of motion. Neck supple. Cardiovascular: Normal rate, regular rhythm, normal heart sounds and intact distal pulses. Pulmonary/Chest: Effort normal. He has wheezes. He exhibits tenderness. Abdominal: Soft. Bowel sounds are normal. He exhibits no distension. There is no tenderness. Musculoskeletal: Normal range of motion. He exhibits no edema or tenderness. Neurological: He is alert and oriented to person, place, and time. Skin: Skin is warm and dry. Capillary refill takes less than 2 seconds. No rash noted. Psychiatric: He has a normal mood and affect. Nursing note and vitals reviewed. Laboratory & Radiographic Imaging (if done): Results for orders placed or performed during the hospital encounter of 05/27/19 CMP Result Value Ref Range Sodium 140 135 - 145 mmol/L Potassium 3.9 3.5 - 5.1 mmol/L Chloride 106 98 - 108 mmol/L Bicarbonate 25 21 - 32 mmol/L Anion Gap 13 10 - 20 mmol/L Glucose 90 65 - 99 mg/dL BUN 16 8 - 25 mg/dL Creatinine 1.18 0.80 - 1.30 mg/dL eGFR 62 >=60 mL/min/1.73 m2 BUN/Creatinine Ratio 13.6 10.0 - 20.0 Total Protein 6.8 6.0 - 8.0 g/dL Albumin 3.2 3.2 - 5.2 g/dL Calcium 9.4 8.4 - 10.2 mg/dL Alkaline Phosphatase 42 40 - 150 U/L AST 26 0 - 45 U/L Total Bilirubin 0.4 0.0 - 1.3 mg/dL ALT 28 14 - 65 U/L CBC Auto Differential Result Value Ref Range WBC 9.42 4.50 - 11.00 K/mcL RBC 3.40 (L) 4.50 - 5.90 M/mcL Hemoglobin 12.7 (L) 13.5 - 17.5 g/dL Hematocrit 35.5 (L) 41.0 - 53.0 % MCV 104.4 (H) 80.0 - 100.0 fL MCH 37.4 (H) 26.0 - 34.0 pg MCHC 35.8 31.0 - 37.0 g/dL Platelets 116 (L) 150 - 400 K/mcL RDW - CV 12.4 11.6 - 14.8 % MPV 11.2 9.0 - 15.5 fL Neutrophils 71.0 % Lymphocytes 18.9 % Monocytes 8.9 % Eosinophils 0.1 % Basophils 0.6 % IG Percent 0.50 % Neutrophils Abs 6.68 1.70 - 7.00 K/mcL Lymphocytes Abs 1.78 0.90 - 4.00 K/mcL Monocytes Abs 0.84 0.30 - 0.90 K/mcL Eosinophils Abs 0.01 0.00 - 0.50 K/mcL Basophils Abs 0.06 0.00 - 0.30 K/mcL IG Absolute 0.05 0.00 - 0.30 K/mcL Nucleated RBC 0.0 % Nucleated RBC Abs 0.00 0.00 - 0.00 K/mcL XR Chest AP/PA and LAT Preliminary Result 1. New faint opacity in the left lower lobe concerning for early pneumonia/pneumonitis versus some atelectasis. 2. Minimal blunting of the left posterior costophrenic sulcus may be due to a tiny left pleural effusion. 3. Evidence of old granulomas disease redemonstrated. Lungs otherwise clear. 4. Normal heart size. 5. Multilevel degenerative changes of the [id number] thoracic spine are redemonstrated. [facility] Workstation ID: [id number] Procedures MDM Number of Diagnoses or Management Options Pneumonia of left lower lobe due to infectious organism (HCC): Diagnosis management comments: Patient's chest x-ray reveals early lower lobe pneumonia. This in addition to patient's pulse ox being low, I did recommend admission for further evaluation and treatment. Patient refuses and states that he would like to go home as he states that he is fine and is only the cough that is bothering him. I did explain risks versus benefits and discuss patient with Dr. Martin. Patient states that he will sign out AGAINST MEDICAL ADVICE. Amount and/or Complexity of Data Reviewed Clinical lab tests: ordered and reviewed Tests in the radiology section of CPT : ordered and reviewed Risk of Complications, Morbidity, and/or Mortality Presenting problems: moderate Diagnostic procedures: moderate Management options: low Patient Progress Patient progress: stable . Clinical Impression: SNOMED CT(R) 1. Pneumonia of left lower lobe due to infectious organism (HCC) INFECTIVE PNEUMONIA ED Disposition ED Disposition Condition Comment Discharge Stable Stevo Elizalde discharged to home/self care in stable condition. Follow-up Information 1. Phyllis Mae MD. Specialty: Internal Medicine [address] [facility] [id number] Contact information for after-discharge care Follow-up information has not been specified. New Prescriptions doxycycline hyclate (VIBRA-TABS) 100 MG tablet Take 1 (one) tablet (100 mg total) by mouth 2 (two) times a day for 10 days . predniSONE (DELTASONE) 50 MG tablet Take 1 (one) tablet (50 mg total) by mouth daily for 5 days . Wendy Ernst PA-C 05/27/19 1233 Xray at bedside Wendy LEMUS at bedside to evaluate pt Pt c/o cough that started yesterday, states the cough is productive, clear and sometimes yellowish, pt states CP with deep breathing, pt 89% on room air, pt placed on 2 L O2 at this time documented in this encounter Associated Order(s): EKG 12-lead ED PROVIDER NOTE [facility] EMERGENCY DEPARTMENT NAME: Stevo Elizalde AGE: 69 y.o. : 1950 VISIT DATE: 06/05/2019 CSN: [id number] PCP: Phyllis Mae MD Chief Complaint Patient presents with Pneumonia Diagnosed w/PNA. Wants to be checked to make sure he is getting better. Patient is here because of cough and congestion. Recently diagnosed with pneumonia. Went to be reevaluated to make sure he is not getting worse. Patient does have some cough and shortness of breath. However this is not significantly worse than his baseline. Patient says he does have COPD. Patient continues to improve in the ED. Once he was told he did not have pneumonia he feels much better. Patient is already on doxycycline will be discharged home in stable condition. Patient has recently completed a course of prednisone. Past Medical History: Diagnosis Date Arthritis Carotid artery occlusion CKD (chronic kidney disease) Stage III Claudication ([facility]) COPD (chronic obstructive pulmonary disease) ([facility]) Diabetes mellitus ([facility]) Essential tremor History of pneumonia Hyperlipidemia Hypertension Leg cramps MGUS (monoclonal gammopathy of unknown significance) Peptic ulcer disease PVD (peripheral vascular disease) ([facility]) Rhabdomyolysis 2010 Stroke ([facility]) 2010 R side Past Surgical History: Procedure Laterality Date carotid angio 2010 HAND SURGERY Right 2009 MT THROMBOENDARTECTMY NECK,NECK INCIS Right 2009 SHOULDER OPEN ROTATOR CUFF REPAIR Left 2015 Family History Problem Relation Age of Onset Heart attack Father Diabetes Sister Heart attack Sister Stroke Sister Hypertension Sister Deep vein thrombosis Sister leg Ovarian cancer Sister Heart attack Brother Cancer Maternal Grandfather Cancer Paternal Grandmother Cancer Maternal Uncle Heart disease Sister Heart disease Sister Social History Socioeconomic History Marital status: Spouse name: Not on file Number of children: Not on file Years of education: Not on file Highest education level: Not on file Occupational History Occupation: Disability Comment: [employer] Social Needs Financial resource strain: Not on file Food insecurity: Worry: Not on file Inability: Not on file Transportation needs: Medical: Not on file Non-medical: Not on file Tobacco Use Smoking status: Current Every Day Smoker Packs/day: 1.00 Years: 55.00 Pack years: 55.00 Types: Cigarettes Smokeless tobacco: Never Used Tobacco comment: Former 3-4 ppd 40 years Substance and Sexual Activity Alcohol use: Yes Comment: occasional Drug use: No Sexual activity: Not on file Lifestyle Physical activity: Days per week: Not on file Minutes per session: Not on file Stress: Not on file Relationships Social connections: Talks on phone: Not on file Gets together: Not on file Attends mormonism service: Not on file Active member of club or organization: Not on file Attends meetings of clubs or organizations: Not on file Relationship status: Not on file Other Topics Concern Not on file Social History Narrative Pets: cat Positive PPD Previous Medications Medication Sig predniSONE (DELTASONE) 50 MG tablet Take 50 mg by mouth daily . ACCU-CHEK ELLI PLUS TEST STRP strips by Miscellaneous route 2 (two) times a day TEST BLOOD SUGAR TWICE A DAY . ADVAIR DISKUS 500-50 mcg/dose diskus inhaler INHALE TWICE A DAY albuterol (PROVENTIL) 2.5 mg /3 mL (0.083 %) nebulizer solution Take 3 mL (2.5 mg total) by nebulization every 4 (four) hours as needed for wheezing . aspirin 81 MG EC tablet Take 81 mg by mouth daily . BD ULTRA-FINE SHORT PEN NEEDLE 31 gauge x 5/16" Ndle USE DIRECTED TWICE DAILY WITH LANTUS DX: DMII/E11.9 benzonatate (TESSALON) 100 MG capsule Take 1 (one) capsule (100 mg total) by mouth 3 (three) times a day as needed for cough . calcium-vitamin D (calcium-vitamin D) 500 mg(1,250mg) -200 unit per tablet Take 1 tablet by mouth 2 (two) times a day with meals . clopidogrel (PLAVIX) 75 mg tablet Take 75 mg by mouth daily. cyanocobalamin (vitamin B-12) 1000 MCG tablet Take 1,000 mcg by mouth daily. diphenoxylate-atropine (LOMOTIL) 2.5-0.025 mg per tablet Take 1 tablet by mouth as needed for diarrhea. doxycycline hyclate (VIBRA-TABS) 100 MG tablet Take 1 (one) tablet (100 mg total) by mouth 2 (two) times a day for 10 days . famotidine (PEPCID) 20 MG tablet Take 20 mg by mouth 2 (two) times a day. folic acid (FOLVITE) 1 MG tablet Take 1 mg by mouth daily. gemfibrozil (LOPID) 600 MG tablet Take 600 mg by mouth 2 (two) times a day. LANTUS SOLOSTAR 100 unit/mL (3 mL) InPn INJECT 30 UNITS SUBCUTANEOUSLY TWICE A DAY lisinopril (PRINIVIL,ZESTRIL) 40 MG tablet Take 40 mg by mouth daily . loratadine (CLARITIN) 10 mg tablet Take 10 mg by mouth daily as needed for allergies. metFORMIN (GLUCOPHAGE) 500 MG tablet Take 500 mg by mouth 2 (two) times a day with meals. multivitamin with minerals tablet Take 1 tablet by mouth daily. ondansetron (ZOFRAN) 4 MG tablet Take 4 mg by mouth every 4 (four) hours as needed for nausea . oxyCODONE-acetaminophen (PERCOCET) 7.5-325 mg per tablet Take 1 tablet by mouth every 8 (eight) hours as needed Takes 1/2 tab. pantoprazole (PROTONIX) 40 MG tablet Take 40 mg by mouth daily. pregabalin (LYRICA) 75 MG capsule Take 50 mg by mouth 2 (two) times a day . propranolol (INDERAL LA) 80 MG 24 hr capsule Take 1 (one) capsule (80 mg total) by mouth daily . sodium bicarbonate 650 MG tablet Take 650 mg by mouth 2 (two) times a day. SPIRIVA WITH HANDIHALER 18 mcg inhalation capsule VENTOLIN HFA 90 mcg/actuation inhaler INHALE 2 PUFFS EVERY 4 HOURS NEEDED Allergies Allergen Reactions Chantix [Varenicline] Swelling Review of Systems HENT: Positive for congestion, sinus pressure and sneezing. Respiratory: Positive for cough and shortness of breath. All other systems reviewed and are negative. Patient Vitals for the past 24 hrs: BP Temp Temp src Pulse Resp SpO2 Height Weight 06/05/19 1330 (!) 162/80 60 (!) 19 95 % 06/05/19 1232 (!) 175/93 06/05/19 1221 (!) 192/93 97.9 F (36.6 C) Oral 70 18 96 % 5' 7" 66.2 kg (146 lb) Physical Exam Constitutional: He appears well-developed. HENT: Head: Normocephalic. Eyes: Pupils are equal, round, and reactive to light. Neck: Normal range of motion. Cardiovascular: Regular rhythm and normal heart sounds. Pulmonary/Chest: Effort normal and breath sounds normal. Abdominal: Soft. Bowel sounds are normal. Musculoskeletal: Normal range of motion. Neurological: He is alert. Skin: Skin is warm. Capillary refill takes less than 2 seconds. Psychiatric: His behavior is normal. Thought content normal. Laboratory & Radiographic Imaging (if done): Results for orders placed or performed during the hospital encounter of 06/05/19 POC CBC and Differential Result Value Ref Range WBC 9.50 4.50 - 11.00 K/mcL RBC 3.52 (L) 4.50 - 5.90 M/mcL Hemoglobin 12.9 (L) 13.5 - 17.5 g/dL Hematocrit 36.7 (L) 41.0 - 53.0 % MCV 104.3 (H) 80.0 - 100.0 fL MCH 36.6 (H) 26.0 - 34.0 pg MCHC 35.1 31.0 - 37.0 g/dL RDW - CV 12.2 11.6 - 14.8 % Neutrophils 74.3 % Lymphocytes 22.6 % Mixed 3.1 % Neutrophil Abs 7.1 (H) 1.7 - 7.0 K/mcl Lymphocyte Abs 2.1 0.9 - 4.0 K/mcl Mixed Abs 0.3 K/mcl Comment See Comment (CR) (none) POC Basic Metabolic Panel Result Value Ref Range Glucose 81 65 - 99 mg/dL BUN 16 8 - 25 mg/dL Creatinine 1.1 0.8 - 1.3 mg/dL Sodium 141 135 - 145 mmol/L Potassium 3.4 (L) 3.5 - 5.1 mmol/L Chloride 105 98 - 108 mmol/L TCO2 28 21 - 32 mmol/L Calcium 8.9 8.4 - 10.2 mg/dL POC Troponin I Result Value Ref Range Troponin I <0.05 <0.05 ng/mL POC B-type natriuretic peptide (BNP) Result Value Ref Range BNP 97.3 <100 pg/mL XR Chest AP/PA and LAT Final Result Nonacute two-view chest with mild chronic degenerative changes. Workstation ID: [id number] EKG 12-lead Date/Time: 06/05/2019 1:21 PM Performed by: Bret Fuentes MD Authorized by: Bret Fuentes MD Interpreted by ED attending physician Comparison: not compared with previous ECG Rhythm: sinus rhythm BPM: 72 Conduction: conduction normal T Waves: T waves normal normal MT interval normal QRS interval Clinical impression: normal ECG MDM Number of Diagnoses or Management Options Diagnosis management comments: We will evaluate patient for pneumonia and see. Clinically the patient looks fairly good. . Clinical Impression: SNOMED CT(R) 1. COPD exacerbation (HCC) ACUTE EXACERBATION OF CHRONIC OBSTRUCTIVE AIRWAYS DISEASE ED Disposition ED Disposition Condition Comment Discharge Stable Stevo Elizalde discharged to home/self care in stable condition. Follow-up Information 1. Phyllis Mae MD. Specialty: Internal Medicine Why: If symptoms worsen [address] [place] [address] Contact information for after-discharge care Follow-up information has not been specified. Bret Fuentes MD 06/05/19 1346 Patient to room from x-ray. Patient to x-ray. Diagnosed w/PNA. Wants to do a follow-up to make sure it is getting better. Physician at bedside. documented in this encounter Bed: 17 Expected date: Expected time: Means of arrival: Comments: First pt when clean bedside provided update, pt stable at this time awaiting test results Ems reports that pt had left sided weakness on scene after fall, pt is now reporting bilateral weakness for dr mathis Back to room form ct, dr mathis is on stroke network monitor [facility] ED Attending Note: NAME: Stevo Elizalde 70 y.o. CSN: [id number] PCP: Phyllis Mae MD History: Chief Complaint: Trauma and Stroke Alert HPI: The history was obtained from the EMS. Stevo is a 70 y.o. male who presents with a chief complaint of Trauma and Stroke Alert. Patient fell down an entire flight of stairs into the basement at home. EMS noted left facial drooping and weakness on left side. Family and patient unable to verify onset of drooping or weakness. Patient complains of pain in back. Trauma team present airway intact. PMHx: No past medical history on file. PMSx: No past surgical history on file. FAM. Hx: No family history on file. SOC. Hx: Social History Socioeconomic History Marital status: Spouse name: Not on file Number of children: Not on file Years of education: Not on file Highest education level: Not on file Occupational History Not on file Social Needs Financial resource strain: Not on file Food insecurity Worry: Not on file Inability: Not on file Transportation needs Medical: Not on file Non-medical: Not on file Tobacco Use Smoking status: Not on file Substance and Sexual Activity Alcohol use: Not on file Drug use: Not on file Sexual activity: Not on file Lifestyle Physical activity Days per week: Not on file Minutes per session: Not on file Stress: Not on file Relationships Social connections Talks on phone: Not on file Gets together: Not on file Attends mormonism service: Not on file Active member of club or organization: Not on file Attends meetings of clubs or organizations: Not on file Relationship status: Not on file Other Topics Concern Not on file Social History Narrative Not on file MEDs: Previous Medications Medication Sig albuterol (PROVENTIL) 2.5 mg /3 mL (0.083 %) nebulizer solution Take 2.5 mg by nebulization every 4 (four) hours as needed for wheezing . albuterol 90 mcg/actuation inhaler Inhale 2 puffs every 4 (four) hours as needed for wheezing . amLODIPine (NORVASC) 2.5 MG tablet Take 2.5 mg by mouth daily . benzonatate (TESSALON) 200 MG capsule Take 200 mg by mouth 3 (three) times a day as needed for cough . clopidogreL (PLAVIX) 75 mg tablet Take 75 mg by mouth daily . famotidine (PEPCID) 20 MG tablet Take 20 mg by mouth 2 (two) times a day . fluticasone propion-salmeteroL (Wixela Inhub) 500-50 mcg/dose diskus inhaler Inhale 1 puff 2 (two) times a day . folic acid (FOLVITE) 1 MG tablet Take 1 mg by mouth daily . insulin aspart U-100 (NovoLOG) 100 unit/mL injection Inject under the skin 3 (three) times a day before meals . insulin glargine (LANTUS) 100 unit/mL injection Inject 30 Units under the skin 2 (two) times a day . isosorbide mononitrate (IMDUR) 30 MG 24 hr tablet Take 30 mg by mouth daily . lisinopriL (PRINIVIL,ZESTRIL) 40 MG tablet Take 40 mg by mouth daily . lovastatin (MEVACOR) 10 MG tablet Take 10 mg by mouth nightly . metFORMIN (GLUCOPHAGE) 500 MG tablet Take 500 mg by mouth 2 (two) times a day with meals . omeprazole (PRILOSEC) 20 MG capsule Take 20 mg by mouth daily . propranoloL (INDERAL LA) 80 MG 24 hr capsule Take 80 mg by mouth daily . sodium bicarbonate 650 MG tablet Take 1,300 mg by mouth 2 (two) times a day . spironolactone (ALDACTONE) 25 MG tablet Take 25 mg by mouth daily . tiotropium (SPIRIVA) [address] 18 mcg into inhaler and inhale daily . ALL: Allergies not on file ROS: Positives and pertinent negatives as per HPI. All other systems were reviewed and are negative. Physical Exam: Patient Vitals for the past 24 hrs: BP Temp Temp src Pulse Resp SpO2 04/14/20 1515 (!) 95/50 74 92 % 04/14/20 1500 (!) 162/82 (!) 102 99 % 04/14/20 1445 (!) 102/57 70 90 % 04/14/20 1443 98.8 F (37.1 C) Oral 04/14/20 1430 (!) 97/53 69 93 % 04/14/20 1415 (!) 91/43 66 93 % 04/14/20 1400 (!) 92/47 65 96 % 04/14/20 1345 106/62 65 04/14/20 1345 106/62 99 % 04/14/20 1344 65 18 04/14/20 1325 64 04/14/20 1324 (!) 133/109 04/14/20 1324 (!) 133/109 64 04/14/20 1322 64 18 95 % 04/14/20 1319 64 04/14/20 1315 106/64 66 18 95 % 04/14/20 1315 106/64 67 Physical Exam Constitutional: Appearance: He is well-developed. HENT: Head: Normocephalic and atraumatic. Nose: Nose normal. Eyes: General: No scleral icterus. Conjunctiva/sclera: Conjunctivae normal. Cardiovascular: Rate and Rhythm: Regular rhythm. Heart sounds: No murmur. Pulmonary: Effort: Pulmonary effort is normal. No respiratory distress. Musculoskeletal: Comments: No obvious long bone fractures Skin: General: Skin is warm. Findings: No rash. Neurological: Mental Status: He is alert and oriented to person, place, and time. Comments: No focal deficit noted Psychiatric: Behavior: Behavior normal. Laboratory & Radiological Imaging (if done): Labs Reviewed CBC - Abnormal; Notable for the following components: Result Value RBC 3.18 (*) Hemoglobin 11.9 (*) Hematocrit 35.6 (*) MCV 111.9 (*) MCH 37.4 (*) All other components within normal limits COMPREHENSIVE METABOLIC PANEL - Abnormal; Notable for the following components: Bicarbonate 18 (*) BUN 37 (*) Creatinine 1.66 (*) eGFR 41 (*) BUN/Creatinine Ratio 22.3 (*) All other components within normal limits Narrative: The eGFR should be used for monitoring renal function only and not for medication dosing. PHOSPHORUS - Abnormal; Notable for the following components: Phosphorus 3.9 (*) All other components within normal limits ALCOHOL, MEDICAL - Abnormal; Notable for the following components: Alcohol (Medical) 259.70 (*) All other components within normal limits POC VENOUS BLOOD GAS PANEL-PULM - RALS - Abnormal; Notable for the following components: pH, Venous 7.26 (*) pO2, Eric 43 (*) Base Excess, Eric -8.1 (*) HCO3, Eric 18.6 (*) Hemoglobin, Blood Gas 12.1 (*) Hematocrit, Calculated 37.2 (*) O2 Sat, Eric 73.7 (*) All other components within normal limits COVID-19, MOLECULAR - Normal MAGNESIUM LEVEL - Normal PT/INR - Normal Narrative: During the induction phase of oral anticoagulation, the INR may not reflect the anticoagulation status of the patient. Therapeutic ranges for INR's are: Most clinical situations: INR 2.0-3.0 Mechanical Prosthetic Valve: INR 2.5-3.5 Critical: INR >5.0 APTT - Normal Narrative: Therapeutic range for APTT's is 68 - 104 seconds POC PT-INR - RALS - Normal PT/INR AND APTT Narrative: The following orders were created for panel order PT/INR and APTT. Procedure Abnormality Status --------- ------ PT/INR[[id number]] Normal Final result APTT[[id number]] Normal Final result Please view results for these tests on the individual orders. OBTAIN VENOUS BLOOD GASES AND PERFORM TYPE AND SCREEN CT Lumbar Spine Without Contrast Reconstructed Preliminary Result No acute fracture or traumatic malalignment. /jd Workstation ID: [id number] CT Thoracic Spine Without Contrast Reconstructed Preliminary Result No acute fracture or traumatic malalignment. ST/rachid Workstation ID: [id number] CT Chest Abdomen Pelvis Without Contrast Preliminary Result No acute findings. No acute displaced rib fractures. Multiple chronic bilateral healed rib fractures. No acute fracture of the pelvis. Chronic findings of hepatic steatosis, cholelithiasis, mild pancreatic duct dilatation and moderate pulmonary emphysema. Moderately severe atherosclerotic disease. Stable mild fusiform aneurysmal dilatation of the descending thoracic aorta. ST/rachid Workstation ID: [id number] CT Cervical Spine Without Contrast Preliminary Result No acute fracture or traumatic malalignment. [id number] multilevel degenerative changes. ST/s Workstation ID: [id number] CT Head Or Brain Without Contrast Preliminary Result 1. No intracranial hemorrhage or mass effect. 2. No depressed calvarial fracture. ST/[facility] Workstation ID: [id number] XR Chest 1 View Preliminary Result 1. No acute cardiopulmonary process. 2. No acute displaced rib fractures. ST/[facility] Workstation ID: [id number] US ED Fast Scan (Results Pending) Indicates that patient unharmed by fall. to take him home. Clinical Impression: 1. Fall, initial encounter 2. Alcoholic intoxication with complication (HCC) Disposition: Patient is being discharged to home BRANDIE SCHERER MD [facility] (Please note that portions of this note have been completed with a voice recognition software. Efforts were made to correct any errors, but occasionally words are mis-transcribed.) Ray Scherer MD 04/14/[address] XRAY CARTSIDE ROLLED TO EVAL BACK, C SPINE MAINTAINED BY MARIANO STACK Alert called to Stroke Network to activate Cart at this time documented in this encounter [facility] ED Attending Note: NAME: Stevo Elizalde 70 y.o. CSN: [id number] PCP: Phyllis Mae MD History: Chief Complaint: Trauma HPI: The history was obtained from the patient. Stevo is a 70 y.o. male who presents with a chief complaint of Trauma. Very pleasant 70-year-old white male transfe Masha he has broken ribs and some facial fractures and is on blood thinner .denies loss of consciousness denies inability to walk .rred from another facility for trauma evaluation after a fall last night. PMHx: Past Medical History: Diagnosis Date Arthritis Carotid artery occlusion CKD (chronic kidney disease) Stage III COPD (chronic obstructive pulmonary disease) ([facility]) Diabetes mellitus ([facility]) TYPE 2 Essential tremor History of pneumonia Hyperlipidemia Hypertension Leg cramps Leg heaviness MGUS (monoclonal gammopathy of unknown significance) Peptic ulcer disease PVD (peripheral vascular disease) ([facility]) Rhabdomyolysis 2010 Stroke ([facility]) 2010 R side PMSx: Past Surgical History: Procedure Laterality Date carotid angio 2010 HAND SURGERY Right 2009 MT THROMBOENDARTECTMY NECK,NECK INCIS Right 2010 SHOULDER OPEN ROTATOR CUFF REPAIR Left 2014 FAM. Hx: Family History Problem Relation Age of Onset Heart attack Father Diabetes Sister Heart attack Sister Stroke Sister Hypertension Sister Deep vein thrombosis Sister leg Ovarian cancer Sister Heart attack Brother Other (Old age) Mother Cancer Maternal Grandfather Cancer Paternal Grandmother Cancer Maternal Uncle Heart disease Sister Heart disease Sister SOC. Hx: Social History Socioeconomic History Marital status: Spouse name: Not on file Number of children: Not on file Years of education: Not on file Highest education level: Not on file Occupational History Occupation: Disability Comment: [employer] Social Needs Financial resource strain: Not on file Food insecurity Worry: Not on file Inability: Not on file Transportation needs Medical: Not on file Non-medical: Not on file Tobacco Use Smoking status: Current Every Day Smoker Packs/day: 1.00 Years: 55.00 Pack years: 55.00 Types: Cigarettes Smokeless tobacco: Never Used Tobacco comment: Former 3-4 ppd 40 years Substance and Sexual Activity Alcohol use: Yes Comment: occasional Drug use: No Sexual activity: Not on file Lifestyle Physical activity Days per week: Not on file Minutes per session: Not on file Stress: Not on file Relationships Social connections Talks on phone: Not on file Gets together: Not on file Attends mormonism service: Not on file Active member of club or organization: Not on file Attends meetings of clubs or organizations: Not on file Relationship status: Not on file Other Topics Concern Not on file Social History Narrative Pets: cat Positive PPD- 1976 Lives in two story home, takes care of mother in law. All ADL on one story, upstairs to go outside of home. Cane use. MEDs: Previous Medications Medication Sig Accu-Chek Elli Plus test strp strips Use to check BG 3x daily. DX code E11.9 on insulin . albuterol (PROVENTIL) 2.5 mg /3 mL (0.083 %) nebulizer solution Take 2.5 mg by nebulization every 4 (four) hours as needed for wheezing . albuterol 90 mcg/actuation inhaler Inhale 2 puffs every 4 (four) hours as needed for wheezing . amLODIPine (NORVASC) 2.5 MG tablet Take 2.5 mg by mouth daily . azithromycin (ZITHROMAX) 250 MG tablet Take two on day one, then one daily for four more days . BD Ultra-Fine Short Pen Needle 31 gauge x 5/16" Ndle Use as directed, 4 times daily. . benzonatate (TESSALON) 200 MG capsule Take 200 mg by mouth 3 (three) times a day as needed for cough . blood-glucose meter Misc Accu-chek Elli plus meter. Use as directed 4 times daily. . busPIRone (BUSPAR) 5 MG tablet Take 5 mg by mouth 3 (three) times a day . calcium-vitamin D (calcium-vitamin D) 500 mg(1,250mg) -200 unit per tablet Take 1 tablet by mouth 2 (two) times a day with meals . cyanocobalamin (vitamin B-12) 1000 MCG tablet Take 1,000 mcg by mouth daily. famotidine (PEPCID) 20 MG tablet Take 20 mg by mouth 2 (two) times a day . fluticasone propion-salmeteroL (Wixela Inhub) 500-50 mcg/dose diskus inhaler Inhale 1 puff 2 (two) times a day . folic acid (FOLVITE) 1 MG tablet Take 1 mg by mouth daily . insulin aspart U-100 (NovoLOG) 100 unit/mL injection Inject under the skin 3 (three) times a day before meals . insulin glargine (LANTUS) 100 unit/mL injection Inject 30 Units under the skin 2 (two) times a day . isosorbide mononitrate (IMDUR) 30 MG 24 hr tablet Take 30 mg by mouth daily . lisinopriL (PRINIVIL,ZESTRIL) 40 MG tablet Take 40 mg by mouth daily . loratadine (CLARITIN) 10 mg tablet Take 10 mg by mouth daily as needed for allergies. lovastatin (MEVACOR) 10 MG tablet Take 10 mg by mouth nightly . magnesium oxide 400 mg magnesium Tab Take by mouth 2 (two) times a day . metFORMIN (GLUCOPHAGE) 500 MG tablet Take 500 mg by mouth 2 (two) times a day with meals . multivitamin with minerals tablet Take 1 tablet by mouth daily. nitroGLYCERIN (NITROSTAT) 0.4 MG SL tablet omeprazole (PRILOSEC) 20 MG capsule Take 20 mg by mouth daily . PARoxetine (PAXIL) 20 MG tablet Take 20 mg by mouth daily . pregabalin (LYRICA) 75 MG capsule Take 50 mg by mouth 2 (two) times a day . propranoloL (INDERAL LA) 80 MG 24 hr capsule Take 80 mg by mouth daily . sodium bicarbonate 650 MG tablet Take 1,300 mg by mouth 2 (two) times a day . spironolactone (ALDACTONE) 25 MG tablet Take 25 mg by mouth daily . tiotropium (SPIRIVA) [address] 18 mcg into inhaler and inhale daily . [DISCONTINUED] aspirin 81 MG EC tablet Take 81 mg by mouth daily . [DISCONTINUED] clopidogreL (PLAVIX) 75 mg tablet Take 75 mg by mouth daily . ALL: Allergies Allergen Reactions Chantix [Varenicline] Swelling ROS: Positives and pertinent negatives as per HPI. All other systems were reviewed and are negative. Physical Exam: Patient Vitals for the past 24 hrs: BP Temp Pulse Resp SpO2 Height Weight 06/10/20 1730 (!) 160/99 95 % 06/10/20 1729 (!) 160/99 98.4 F (36.9 C) 87 16 93 % 5' 7" 68 kg (150 lb) Physical Exam Constitutional: Appearance: He is well-developed. HENT: Head: Comments: Ecchymosis around left eye Nose: Nose normal. Eyes: General: No scleral icterus. Conjunctiva/sclera: Conjunctivae normal. Cardiovascular: Rate and Rhythm: Regular rhythm. Heart sounds: No murmur. Pulmonary: Effort: Pulmonary effort is normal. No respiratory distress. Musculoskeletal: Comments: No obvious long bone fractures Skin: General: Skin is warm. Findings: No rash. Neurological: Mental Status: He is alert and oriented to person, place, and time. Psychiatric: Behavior: Behavior normal. GCS 15 Laboratory & Radiological Imaging (if done): Labs Reviewed POC GLUCOSE - Abnormal; Notable for the following components: Result Value Glucose 259 (*) All other components within normal limits POC GLUCOSE - RALS - Abnormal; Notable for the following components: Glucose 259 (*) All other components within normal limits CT Comparison Import Final Result XR Comparison Import Final Result CT Comparison Import Final Result CT Comparison Import Final Result Trauma is aware of patient and has already seen him Clinical Impression: 1. Closed fracture of multiple ribs of right side, initial encounter 2. Closed fracture of multiple ribs of left side, initial encounter 3. Closed extensive facial fractures, initial encounter ([facility]) 4. Closed fracture of multiple ribs of both sides, initial encounter Disposition: Patient is being discharged to home These Medications Have Changed Change Disp Refills Start End Stop aspirin 81 MG EC tablet (Discontinued) 06/10/2020 Class: Historical Med Reason for Discontinue: Reorder Start aspirin 81 MG EC tablet 30 tablet 0 06/16/2020 07/16/2020 Sig: Take 1 (one) tablet (81 mg total) by mouth daily Start: 06/16/20. Route: Oral Stop clopidogreL (PLAVIX) 75 mg tablet (Discontinued) 06/10/2020 Class: Historical Med Reason for Discontinue: Reorder Start clopidogreL (PLAVIX) 75 mg tablet 30 tablet 0 06/16/2020 07/16/2020 Sig: Take 1 (one) tablet (75 mg total) by mouth daily Start: 06/16/20. Route: Oral BRANDIE SCHERER MD [facility] (Please note that portions of this note have been completed with a voice recognition software. Efforts were made to correct any errors, but occasionally words are mis-transcribed.) Ray Scherer MD 06/10/201851 [facility] TRAUMA RESEARCH MICROBIOLOGIST, COMPLETING [facility]. documented in this encounter Amanda Gorman, RAQUEL - 06/10/2020 5:57 PM EDT H&P Notes (unrecognized sect ion and content) [facility] [place] TRAUMA TRAUMA EVALUATION / HISTORY AND PHYSICAL Closed fracture of multiple ribs of left side Assessment & Plan Left rib 7 and 8 fracture noted on chest xray. RA, pain well controlled. IS Closed fracture of left orbital floor (HCC) Assessment & Plan Impacted comminuted fracture lateral and anterior wall of left maxillary sinus, latter extending to the infra-orbital rim Minimally displaced fracture of orbit floor. Left lateral wall of orbit. Left maxillary air cell attenuation consistent with hemorrhage. Transfer from [place] for Trauma tertiary evaluation. Loading CT head, maxface, cervical spine. Left eye edema and ecchymosis, no visual deficit, no noted entrapment. Consult to ENT Spoke with Dr. Minaya, will see in office on Friday 06/15, start Keflex, hold aspirin and plavix till follow up with ENT. MECHANISM OF INJURY: Fall 2 days ago. LOC (yes/no?): Denies Anticoagulant / Anti-platelet Rx? (for what dx?): Daily aspirin and Plavix. CHIEF COMPLAINT: Fall with mild left chest discomfort with deep breath and left eye edema and ecchymosis HISTORY OF PRESENT ILLNESS / INJURY (HPI): [include Pain, Quality, Radiation, Severity, Duration, Timing] Mr. Elizalde is a 70 year old male with significant medical history of CKD, COPD, DM type 2, HTN, Stroke with right sided deficit and surgical history of carotid endarterectomy that was transferred from [facility] after being evaluated s/p fall 2 days ago with noted facial fracture and rib fracture. Pt states 2 nights ago he got out of bed and tripped and fell onto his left face and side. Today he had a yearly PCP appointment and his PCP felt he needed to be evaluated for fracture. [place] completed a CT head and cervical spine that was negative and CT max face showed fractures with max sinus hemorrhage, xray chest notes rib 7-8 fractures. On exam pt GCS of 15, lung sounds bilaterally clear, chest wall and pelvis are stable, pulses + 2 throughout. Left orbit with + edema and ecchymosis with scleral hemorrhage, no visual deficit, no entrapment. Spoke with ENT, plan as above. Will discharge to home. PAST MEDICAL HISTORY (PMH): Past Medical History: Diagnosis Date Arthritis Carotid artery occlusion CKD (chronic kidney disease) Stage III COPD (chronic obstructive pulmonary disease) ([facility]) Diabetes mellitus ([facility]) TYPE 2 Essential tremor History of pneumonia Hyperlipidemia Hypertension Leg cramps Leg heaviness MGUS (monoclonal gammopathy of unknown significance) Peptic ulcer disease PVD (peripheral vascular disease) ([facility]) Rhabdomyolysis 2010 Stroke ([facility]) 2010 R side Past Surgical History: Procedure Laterality Date carotid angio 2010 HAND SURGERY Right 2009 [place] THROMBOENDARTECTMY NECK,NECK INCIS Right 2010 SHOULDER OPEN ROTATOR CUFF REPAIR Left 2015 Social History Pt lives on the first floor of a two story home, steps to exit home. Uses a cane for LDA. Tobacco Use Smoking status: Current Every Day Smoker Packs/day: 1.00 Years: 55.00 Pack years: 55.00 Types: Cigarettes Smokeless tobacco: Never Used Tobacco comment: Former 3-4 ppd 40 years Substance Use Topics Alcohol use: Yes Comment: occasional Drug use: No Family History Problem Relation Age of Onset Heart attack Father Diabetes Sister Heart attack Sister Stroke Sister Hypertension Sister Deep vein thrombosis Sister leg Ovarian cancer Sister Heart attack Brother Other (Old age) Mother Cancer Maternal Grandfather Cancer Paternal Grandmother Cancer Maternal Uncle Heart disease Sister Heart disease Sister MEDICATIONS: Outpatient Medications as of 06/10/2020 Medication Sig Accu-Chek Elli Plus test strp strips Use to check BG 3x daily. DX code E11.9 on insulin . albuterol (PROVENTIL) 2.5 mg /3 mL (0.083 %) nebulizer solution Take 2.5 mg by nebulization every 4 (four) hours as needed for wheezing . albuterol 90 mcg/actuation inhaler Inhale 2 puffs every 4 (four) hours as needed for wheezing . amLODIPine (NORVASC) 2.5 MG tablet Take 2.5 mg by mouth daily . aspirin 81 MG EC tablet Take 81 mg by mouth daily . azithromycin (ZITHROMAX) 250 MG tablet Take two on day one, then one daily for four more days . BD Ultra-Fine Short Pen Needle 31 gauge x 5/16" Ndle Use as directed, 4 times daily. . benzonatate (TESSALON) 200 MG capsule Take 200 mg by mouth 3 (three) times a day as needed for cough . blood-glucose meter Misc Accu-chek Elli plus meter. Use as directed 4 times daily. . busPIRone (BUSPAR) 5 MG tablet Take 5 mg by mouth 3 (three) times a day . calcium-vitamin D (calcium-vitamin D) 500 mg(1,250mg) -200 unit per tablet Take 1 tablet by mouth 2 (two) times a day with meals . clopidogreL (PLAVIX) 75 mg tablet Take 75 mg by mouth daily . cyanocobalamin (vitamin B-12) 1000 MCG tablet Take 1,000 mcg by mouth daily. famotidine (PEPCID) 20 MG tablet Take 20 mg by mouth 2 (two) times a day . fluticasone propion-salmeteroL (Wixela Inhub) 500-50 mcg/dose diskus inhaler Inhale 1 puff 2 (two) times a day . folic acid (FOLVITE) 1 MG tablet Take 1 mg by mouth daily . insulin aspart U-100 (NovoLOG) 100 unit/mL injection Inject under the skin 3 (three) times a day before meals . insulin glargine (LANTUS) 100 unit/mL injection Inject 30 Units under the skin 2 (two) times a day . isosorbide mononitrate (IMDUR) 30 MG 24 hr tablet Take 30 mg by mouth daily . lisinopriL (PRINIVIL,ZESTRIL) 40 MG tablet Take 40 mg by mouth daily . loratadine (CLARITIN) 10 mg tablet Take 10 mg by mouth daily as needed for allergies. lovastatin (MEVACOR) 10 MG tablet Take 10 mg by mouth nightly . magnesium oxide 400 mg magnesium Tab Take by mouth 2 (two) times a day . metFORMIN (GLUCOPHAGE) 500 MG tablet Take 500 mg by mouth 2 (two) times a day with meals . multivitamin with minerals tablet Take 1 tablet by mouth daily. nitroGLYCERIN (NITROSTAT) 0.4 MG SL tablet omeprazole (PRILOSEC) 20 MG capsule Take 20 mg by mouth daily . PARoxetine (PAXIL) 20 MG tablet Take 20 mg by mouth daily . pregabalin (LYRICA) 75 MG capsule Take 50 mg by mouth 2 (two) times a day . propranoloL (INDERAL LA) 80 MG 24 hr capsule Take 80 mg by mouth daily . sodium bicarbonate 650 MG tablet Take 1,300 mg by mouth 2 (two) times a day . spironolactone (ALDACTONE) 25 MG tablet Take 25 mg by mouth daily . tiotropium (SPIRIVA) [address] 18 mcg into inhaler and inhale daily . ALLERGIES: Allergies Allergen Reactions Chantix [Varenicline] Swelling REVIEW OF SYSTEMS is normal as below YES [] NO [] Constitutional Symptoms: Negative for unexplained falls, weight loss COVID19 Screen: Negative for fever, cough, SOB, exposure. Eyes: Negative for eye pain or vision changes Ears, Nose, Mouth, Throat: Negative for rhinorrhea, nasal pain, dysphagia, hoarseness Cardiovascular: Negative for chest pain, orthopnea, edema Respiratory: Negative for cough, shortness of breath Gastrointestinal: Negative for abdominal pain, nausea, vomiting, diarrhea Genitourinary: Negative for dysuria, hematuria Musculoskeletal: Negative for pain, joint edema Skin/Breast: Negative for rash, itching, lesions Neurological: Negative for paresthesia, paralysis, loss of bowel or bladder control, loss of consciousness Psychiatric: Negative for depression, anxiety, or suicidal ideations Endocrine: Negative for heat/cold intolerance, polydipsia, polyphagia, polyuria Hematologic/Lymphatic: Negative for anticoagulant use, family hx of clotting or bleeding disorders. Daily Plavix and aspirin dosing. Allergic/Immunologic: Allergies reviewed, no use of immunosuppressants or active chemotherapy Other than the above items, the remainder of a complete review of systems is otherwise negative. [must have at least one positive or negative to validate this statement] PHYSICAL EXAM: BP (!) 160/99 Pulse 87 Temp 98.4 F (36.9 C) Resp 16 Ht 5' 7" Wt 68 kg (150 lb) SpO2 95% BMI 23.49 kg/m Body mass index is 23.49 kg/m . PRIMARY SURVEY Airway Patent, trachea midline. Phonation is normal. Breathing Symmetric chest rise and fall. Breath sounds present bilaterally. Circulation Pulses 2+ throughout. Disability Moves extremities normally x 4. No lateralizing neurologic signs. Pupils 3 mm equal and reactive bilaterally. Gilchrist Coma Scale EYES (4-spont, 3-to verb stim, 2-to pain, 1-none) 4 VERBAL (5-oriented, 4-confused, 3-inappropriate, 2-incomprehensible, 1-none) 5 MOTOR (6-follows, 5-localizes, 4-withdraws, 3-flexion, 2-extension, 1-none) 6 GCS: 15 SECONDARY SURVEY General Appears age appropriate. In distress, complaining of fall 2 days ago. HEENT Left eye edema with ecchymosis, scleral hemorrage, PERRL, EOMI, mid face stable, tympanic membranes intact, no subconjunctival hemorrhage, nares patent bilaterally, no epistaxis, mouth clear of foreign bodies, no lacerations or abrasions. Neck No midline tenderness to palpation, no step offs, crepitus, or deformities. Chest/Respiratory Lungs clear bilaterally. Breathing is non-labored. Chest wall with mild tenderness to palpation to left side. No crepitus, deformities, lacerations, or abrasions. Cardiovascular RRR. No murmur, rub, gallop. Abdomen Soft, nontender to palpation, non-peritoneal. No lacerations, abrasions or ecchymosis. Pelvis Stable, no crepitance. Non-tender. Rectal No gross blood. No signs of trauma. Genitalia normal for age. No lesions noted. No blood at meatus. Back/Spine TLS spine non-tender to palpation. No step-offs, deformities, lacerations or abrasions. Musculoskeletal Extremities without clubbing, cyanosis, edema. No obvious bony deformity, full ROM. Skin Warm and dry. No lesions of concern. Not jaundiced. No abrasions/contusions. Neurologic A&Ox3. Strength, sensation, proprioception normal. No cerebellar signs. Psychiatric Normal mood. Normal affect. Appropriate insight into current situation. FAST Exam: Pericardial: Negative RUQ: Negative LUQ: Negative Pelvic: Negative EFAST (PTX): N/A FAST Completed and Interpreted by: Jaz Garza CNP IMAGING STUDIES: [brief summary of results, in your own words] CXR: Awaiting import Pelvis Xray: Did not perform CT Head: Awaiting import CT C-Spine: Awaiting import. CT T&L-Spine: Did not perform CTA Neck: Did not perform CTA Chest/Abd/Pelvis: Did not perform CT Maxillofacial: Did not perform Other: Did not perform LABORATORY STUDIES: Results from trauma bay labs were reviewed. Pertinent findings may be listed below, no dot phrases. No labs, POC glucose ordered. TRAUMA [place] / ED PROCEDURES: [requires separate procedure note/dication] Procedure Provider Location/Site/Description Suture closure of laceration: N/A Chest Tube: N/A Intubation: N/A CVC: N/A Arterial catheter: N/A Diagnostic Peritoneal Aspiration: N/A The evaluation was completed according to ATLS guidelines the attending physician, Dr. Nichole was briefed on my assessment findings, plan, and medical decision management of this patient. documented in this encounter Felicitas Cline RN - 04/28/2020 10:00 AM EDT Nursing Notes (unrecognized section and content) C/o nausea with Lexiscan, but subsided at 4min after Kylee given. SR. HR/BP appropriate. Pt denied cp. documented in this encounter Scheduled Active and Recently Administ ered Medications (unrecognized section and content) Medication Order 05/09/2021 05/10/2021 05/11/2021 atorvastatin (LIPITOR) tablet 10 mg 10 mg, Oral, Nightly, First dose on Mon04/27/21 at 2099 2025 (Given - Provider: Radha Cruz RN) 2051 (Given - Provider: Rocío Matthews RN) budesonide-formoteroL (SYMBICORT) 160-4.5 mcg/actuation inhaler 2 puff 2 puff, Inhalation, 2 times daily (RT), First dose on Mon04/27/21 at 2200 0824 (Given - Provider: Judi Sorto, RN)2024 (Given - Provider: Radha Cruz RN) 0900 (Given - Provider: Rachel Cash, RN)1999 (Not Given - Provider: Rocío Matthews RN - Reason: Patient/family refused) 0944 (Given - Provider: Richardson Lema, RN) calcium-vitamin D (OS-SHELDON +D) 500 mg(1,250mg) -200 unit per tablet 1 tablet 1 tablet, Oral, 2 times daily with meals, First dose on Mon04/28/21 at 0800, Give with Food 0824 (Given - Provider: Judi Sorto, SEDA)1735 (Given - Provider: Judi Sorto RN) 0928 (Given - Provider: Rachel Cash RN)1743 (Given - Provider: Rachel Cash, SEDA) 0944 (Given - Provider: Richardson Lema, RN) clopidogreL (PLAVIX) tablet 75 mg 75 mg, Oral, Daily, First dose on Mon04/28/21 at 0900 0824 (Given - Provider: Judi Sorto RN) 0928 (Given - Provider: Rachel Cash, SEDA) 0944 (Given - Provider: Richardson Lema, RN) heparin (porcine) injection 5,000 Units 5,000 Units, Subcutaneous, Every 8 hours scheduled, First dose on Mon04/27/21 at 2200, Notify physician if patient refuses. 0600 (Given - Provider: Radha Cruz RN)1437 (Given - Provider: Judi Sorto RN)2200 (Given - Provider: Radha Cruz RN) 0600 (Given - Provider: Radha Cruz RN)1743 (Given - Provider: Rachel Cash RN)2101 (Given - Provider: Rocío Matthews, RN) 0533 (Given - Provider: Rocío Matthews, RN)1400 (Due) insulin glargine (LANTUS) injection 16 Units 16 Units, Subcutaneous, Nightly, First dose on Mon04/27/21 at 2230, Do not mix with other insulins in a syringe. Do NOT hold basal insulin without notifying physician" 2027 (Given - Provider: Radha Cruz RN) 2257 (Given - Provider: Rocío Matthews, SEDA) insulin lispro (HumaLOG) injection 0-15 Units 0-15 Units, Subcutaneous, At bedtime, First dose on Mon04/27/21 at 2100, For Nightly Insulin Dose Coverage, use: CORRECTIVE (Only) for BG greater than 300, Nightly CORRECTIVE Dose Method: Specific Corrective Dose, Nightly Specific CORRECTIVE dose (units of insulin): 2, For Downtime Calculator, use: "Insulin SC NIGHTtime" 2027 (Not Given - Provider: Radha Cruz RN - Reason: Order parameters not met - Comment: sugar 239) 2099 (Not Given - Provider: Rocío Matthews RN - Reason: Order parameters not met) insulin lispro (HumaLOG) injection 0-30 Units 0-30 Units, Subcutaneous, 3 times daily before meals, First dose (after last modification) on Mon04/28/21 at 1830, Dose should be given 10-15 minutes before a meal. If poor oral intake, nausea or blood glucose value < 80 before meal, give of the dose (rounded up to nearest unit) immediately after meal completed. If patient skipping meal, hold base prandial dose and continue to use corrective insulin as ordered. Once diet resumed, total base prandial + corrective doses may be given., Prandial Insulin Dosing Method: Specific Prandial Doses, Specific Prandial Dose (units of Insulin): 3, Corrective Insulin Regimen (select desired scale to cover BG result): Normal Sensitivity Scale, For Downtime Calculator, use: "Insulin SC MEALtime PREprandial" 0730 (Not Given - Provider: Judi Sorto, SEDA - Reason: Order parameters not met)1434 (Given - Provider: Judi Sorto RN)1735 (Given - Provider: Judi Sorto RN) 0928 (Given - Provider: Rachel Cash, RN)1130 (Given - Provider: Rachel Cash, RN)1743 (Given - Provider: Rachel Cash, RN) 0944 (Given - Provider: Richardson Lema RN)1130 (Not Given - Provider: Richardson Lema RN - Reason: Order parameters not met) labetaloL (NORMODYNE) tablet 100 mg 100 mg, Oral, Every 12 hours scheduled, First dose on Mon05/01/21 at 1100 0824 (Given - Provider: Judi Sorto RN)2025 (Given - Provider: Radha Cruz, RN) 927 (Given - Provider: Rachel Cash, RN)2050 (Given - Provider: Rocío Matthews, RN) 943 (Given - Provider: Richardson Lema, SEDA) NIFEdipine 24 hr tablet 30 mg 30 mg, Oral, Daily, First dose (after last modification) on Mon04/30/21 at 0915 0823 (Given - Provider: Judi Sorto RN) 926 (Given - Provider: Rachel Cash RN) 943 (Given - Provider: Richardson Lema, SEDA) pantoprazole (PROTONIX) EC tablet 40 mg 40 mg, Oral, Daily, First dose on Mon04/28/21 at 0900, DO NOT CRUSH OR CHEW. 08 (Given - Provider: Judi Sorto RN) 926 (Given - Provider: Rachel Cash RN) 942 (Given - Provider: Richardson Lema, SEDA) PARoxetine (PAXIL) tablet 20 mg 20 mg, Oral, Daily, First dose on Mon04/28/21 at 0900, CATEGORY D HAZARDOUS DRUG use safe handling precautions. Use reference link to view PPE guidelines. Minimize crushing/splitting only to situations where clinically necessary. 0826 (Given - Provider: Judi Sorto RN) 926 (Given - Provider: Rachel Cash RN) 943 (Given - Provider: Richardson Lema, SEDA) sodium bicarbonate tablet 1,300 mg 1,300 mg, Oral, 2 times daily, First dose on Mon04/27/21 at 2100 0823 (Given - Provider: Judi Sorto RN)2025 (Given - Provider: Radha Curz, RN) 926 (Given - Provider: Rachel Cash RN)2050 (Given - Provider: Rocío Matthews, RN) 09 (Given - Provider: Richardson Lema, SEDA) sodium chloride (PF) (NS) flush 5 mL(Linked Group 1) 5 mL, Intravenous, Every 8 hours scheduled, First dose on Mon04/27/21 at 1720, Saline lock 0600 (Given - Provider: Radha Cruz RN)1400 (Not Given - Provider: Judi Sorto RN - Reason: Order parameters not met)2200 (Given - Provider: Radha Cruz RN) 0600 (Not Given - Provider: Radha Cruz RN - Reason: Other - Comment: pt okay to DC IV)1400 (Given - Provider: Rachel Cash RN)2103 (Given - Provider: Rocío Matthews RN) 0533 (Given - Provider: Rocío Matthews RN)1400 (Not Given - Provider: Richardson Lema, SEDA - Reason: Loss of IV access) tiotropium bromide (SPIRIVA RESPIMAT) 2.5 mcg/actuation inhaler 2 puff 2 puff, Inhalation, Daily (RT), First dose on Mon04/28/21 at 0900 0829 (Given - Provider: Judi Sorto RN) 0927 (Given - Provider: Rachel Cash RN) 0944 (Given - Provider: Richardson Lema, RN) PRN Medication Order 05/09/2021 05/10/2021 05/11/2021 acetaminophen (TYLENOL) tablet 650 mg 650 mg, Oral, Every 6 hours PRN, headaches, Starting on Mon04/29/21 at 1747 0407 (Return to Cabinet - Provider: Radha Cruz RN) 0213 (Given - Provider: Rayo Jara, RN) 1354 (Due) albuterol (PROVENTIL) 2.5 mg /3 mL (0.083 %) nebulizer solution 2.5 mg 2.5 mg, Nebulization, Every 4 hours PRN, wheezing, Starting on Mon04/27/21 at 1718 loratadine (CLARITIN) tablet 10 mg 10 mg, Oral, Daily PRN, allergies, Starting on Mon04/27/21 at 1718 naloxone (NARCAN) injection 0.1 mg(Linked Group 2) 0.1 mg, Intravenous, As needed, opioid reversal, For respiratory rate less than or equal to 8 per minute., Starting on Mon04/29/21 at 2128, Mix nalOXone (NARCAN) 0.4 mg (1ml) with 9 mL of Normal Saline to total 10 mL. Administer 0.1 mg (2.5ml) IV Push every 2 minutes until respiratory rate is 10 or greater. naloxone (NARCAN) injection 0.4 mg(Linked Group 2) 0.4 mg, Intravenous, As needed, opioid reversal, patient is pulseless, breathless, and unresponsive, Starting on Madeline 04/29/21 at 2128, Call a code first, then administer naloxone dose undiluted IV Push over 30 seconds. nitroGLYCERIN (NITROSTAT) SL tablet 0.4 mg 0.4 mg, Sublingual, Every 5 min PRN, chest pain, Starting on 04/27/21 at 1718, Anginal pain, may repeat [id number] x3, then notify physician. DO NOT CRUSH OR CHEW. ondansetron (ZOFRAN) injection 4 mg(Linked Group 3) 4 mg, Intravenous, Every 6 hours PRN, nausea, vomiting, Starting on 04/27/21 at 1718, Use oral route first, if tolerated. ondansetron (ZOFRAN-ODT) disintegrating tablet 4 mg(Linked Group 3) 4 mg, Oral, Every 6 hours PRN, nausea, vomiting, Starting on 04/27/21 at 1718, Use oral route first, if tolerated. Formulation requires tablet remain in sealed package until immediately prior to dose being administered. sodium chloride (PF) (NS) flush 5 mL(Linked Group 1) 5 mL, Intravenous, As needed, line care, Starting on 04/27/21 at 1718 sodium chloride 0.9% (NS)(Linked Group 1) 0-150 mL/hr, Intravenous, As needed, To flush line after IV infusions when no maintenance IV ordered or a compatibility issue. Infuse 20ml at the same rate as the secondary infusion, Starting on 04/27/21 at 1718, Run as Primary IV. NOT intended for KVO. traMADoL (ULTRAM) 50 mg, acetaminophen (TYLENOL) 325 mg combo dose Oral, Every 6 hours PRN, pain, Starting on Madeline 04/29/21 at 2128 0417 (Given - Provider: Radha Cruz RN)1107 (Given - Provider: Judi Sorto RN)1746 (Given - Provider: Judi Sorto RN) 0213 (Given - Provider: Rayo Jara RN)1038 (Given - Provider: Rachel Cash RN)2056 (Given - Provider: Rocío Matthews, SEDA) 0538 (Given - Provider: Rocío Matthews RN)1356 (Given - Provider: Darrin Thompson RN) Linked Groups Order Group 1: Saline lock IV (CANCELED) Routine, Continuous, Starting on Mon04/27/21 at 1719, Until Specified And sodium chloride (PF) (NS) flush 5 mLJump to med 5 mL, Intravenous, As needed, line care, Starting on Mon04/27/21 at 1718 And sodium chloride (PF) (NS) flush 5 mLJump to med 5 mL, Intravenous, Every 8 hours scheduled, First dose on Mon04/27/21 at 1720
Saline lock
And sodium chloride 0.9% (NS)Jump to med 0-150 mL/hr, Intravenous, As needed, To flush line after IV infusions when no maintenance IV ordered or a compatibility issue. Infuse 20ml at the same rate as the secondary infusion, Starting on Mon04/27/21 at 1718
Run as Primary IV. NOT intended for KVO.
Group 2: naloxone (NARCAN) injection 0.1 mgJump to med 0.1 mg, Intravenous, As needed, opioid reversal, For respiratory rate less than or equal to 8 per minute., Starting on Madeline 04/29/21 at 2128
Mix nalOXone (NARCAN) 0.4 mg (1ml) with 9 mL of Normal Saline to total 10 mL. Administer 0.1 mg (2.5ml) IV Push every 2 minutes until respiratory rate is 10 or greater.
And Notify physician (CANCELED) STAT, Until discontinued, Starting on Madeline 04/29/21 at 2129, Until Specified
Respiratory rate less than: 8
For respiratory rate less than or equal to 8, notify physician and/or appropriate staff for additional orders. And naloxone (NARCAN) injection 0.4 mgJump to med 0.4 mg, Intravenous, As needed, opioid reversal, patient is pulseless, breathless, and unresponsive, Starting on Madeline 04/29/21 at 2128
Call a code first, then administer naloxone dose undiluted IV Push over 30 seconds.
Group 3: ondansetron (ZOFRAN-ODT) disintegrating tablet 4 mgJump to med 4 mg, Oral, Every 6 hours PRN, nausea, vomiting, Starting on Mon04/27/21 at 1718
Use oral route first, if tolerated. Formulation requires tablet remain in sealed package until immediately prior to dose being administered.
Or ondansetron (ZOFRAN) injection 4 mgJump to med 4 mg, Intravenous, Every 6 hours PRN, nausea, vomiting, Starting on Mon04/27/21 at 1718
Use oral route first, if tolerated.
Care Teams (unrecognized sec tion and content) Special Effects Specialist Relationship Specialty Start Date End Date Phyllis Mae MD [address] [place] [address] PCP - General Internal Medicine 04/14/20 Phyllis Mae MD [address] [place] [address] Internal Medicine 04/14/20 Rochelle Cheung MD [address] [place] [address] Consulting Physician Nephrology 04/12/17 Cameron Munugia III, DO [address] [place] [address] Consulting Physician Vascular Surgery 05/24/17 Aquiles Herrera MD [address] [address] Consulting Physician Cardiovascular Disease 05/24/17 Ellen Claudio MD [address] [place] [address] Consulting Physician Physical Medicine/Rehabilitation 05/24/17 Special Effects Specialist Relationship Specialty Start Date End Date Phyllis Mae MD [address] [place] [address] PCP - General Internal Medicine 04/14/20 Phyllis Mae MD [address] [place] [address] Internal Medicine 04/14/20 Rochelle Cheung MD [address] [place] [address] Consulting Physician Nephrology 04/12/17 Cameron Munguia III, DO [address] [place] [address] Consulting Physician Vascular Surgery 05/24/17 Aquiles Herrera MD [address] [phone] Consulting Physician Cardiovascular Disease 05/24/17 Ellen Claudio MD [address] [place] [address] [phone] Consulting Physician Physical Medicine/Rehabilitation 05/24/17 Special Effects Specialist Relationship Specialty Start Date End Date Phyllis Mae MD [address] [place] [address] PCP - General Internal Medicine 04/14/20 Phyllis Mae MD [address] [place] [address] Internal Medicine 04/14/20 Rochelle Cheung MD [address] [place] [address] Consulting Physician Nephrology 04/12/17 Cameron Munguia III, DO [address] [facility] [place] [address] Consulting Physician Vascular Surgery 05/24/17 Aquiles Herrera MD [address] [address] Consulting Physician Cardiovascular Disease 05/24/17 Ellen Claudio MD [address] [place] [address] Consulting Physician Physical Medicine/Rehabilitation 05/24/17 Special Effects Specialist Relationship Specialty Start Date End Date Phyllis Mea MD [address] [place] [address] PCP - General Internal Medicine 04/14/20 Phyllis Mae MD [address] [place] [address] Internal Medicine 04/14/20 Rochelle Cheung MD [address] [place] [address] Consulting Physician Nephrology 04/12/17 Cameron Munguia III, DO [address] [place] [address] Consulting Physician Vascular Surgery 05/24/17 Aquiles Herrera MD [address] [address] Consulting Physician Cardiovascular Disease 05/24/17 Ellen Claudio MD 293 [facility] [place] [address] Consulting Physician Physical Medicine/Rehabilitation 05/24/17 Special Effects Specialist Relationship Specialty Start Date End Date Phyllis Mae MD [address] [place] [address] PCP - General Internal Medicine 04/14/20 Phyllis Mae MD [address] [place] [address] Internal Medicine 04/14/20 Rochelle Cheung MD [address] [place] [address] Consulting Physician Nephrology 04/12/17 Cameron Munguia III, DO [address] [place] [address] Consulting Physician Vascular Surgery 05/24/17 Aquiles Herrera MD [address] [address] Consulting Physician Cardiovascular Disease 05/24/17 Ellen Claudio MD [address] [place] [address] Consulting Physician Physical Medicine/Rehabilitation 05/24/17 Special Effects Specialist Relationship Specialty Start Date End Date Phyllis Mae MD [address] [place] [address] PCP - General Internal Medicine 04/14/20 Phyllis Mae MD [address] [place] [address] Internal Medicine 04/14/20 Rochelle Cheung MD [address] [place] [address] Consulting Physician Nephrology 04/12/17 Cameron Munguia III, DO [address] [place] [address] Consulting Physician Vascular Surgery 05/24/17 Aquiles Herrera MD [address] [address] Consulting Physician Cardiovascular Disease 05/24/17 Ellen Claudio MD [address] [place] [address] Consulting Physician Physical Medicine/Rehabilitation 05/24/17 Special Effects Specialist Relationship Specialty Start Date End Date Phyllis Mae MD [address] [place] [place] [address] PCP - General Internal Medicine 04/14/20 Phyllis Mae MD [address] [place] [address] Internal Medicine 04/14/20 Rochelle Cheung MD [address] [place] [address] Consulting Physician Nephrology 04/12/17 Cameron Munguia III, DO [address] [facility] [place] [address] Consulting Physician Vascular Surgery 05/24/17 Aquiles Herrera MD [address] [phone] Consulting Physician Cardiovascular Disease 05/24/17 Ellen Claudio MD [address] [place] [address] [phone] Consulting Physician Physical Medicine/Rehabilitation 05/24/17 Special Effects Specialist Relationship Specialty Start Date End Date Phyllis Mae MD [address] [place] [address] PCP - General Internal Medicine 04/14/20 Phyllis Mae MD [address] [place] [address] Internal Medicine 04/14/20 Rochelle Cheung MD [address] [place] [address] Consulting Physician Nephrology 04/12/17 Cameron Munguia III, DO [address] [place] [address] Consulting Physician Vascular Surgery 05/24/17 Aquiles Herrera MD [address] [address] Consulting Physician Cardiovascular Disease 05/24/17 Ellen Claudio MD 293 [place] [address] Consulting Physician Physical Medicine/Rehabilitation 05/24/17 Special Effects Specialist Relationship Specialty Start Date End Date Phyllis Mae MD [address] [place] [address] PCP - General Internal Medicine 04/14/20 Phyllis Mae MD [address] [place] [address] Internal Medicine 04/14/20 Rochelle Cheung MD [address] [place] [address] Consulting Physician Nephrology 04/12/17 Cameron Munguia III, DO [address] [place] [address] Consulting Physician Vascular Surgery 05/24/17 Aquiles Herrera MD [address] [address] Consulting Physician Cardiovascular Disease 05/24/17 Ellen Claudio MD 293 [facility] [place] [address] Consulting Physician Physical Medicine/Rehabilitation 05/24/17 Special Effects Specialist Relationship Specialty Start Date End Date Phyllis Mae MD [address] [place] [address] PCP - General Internal Medicine 11/28/18 04/13/20 Phyllis Mae MD [address] [place] [address] PCP - General Internal Medicine 04/14/20 Phyllis Mae MD [address] [place] [address] Internal Medicine 04/14/20 Rochelle Cheung MD [address] [place] [address] Consulting Physician Nephrology 04/12/17 Cameron Munguia III, DO [address] [facility] [place], [place] [id number] Consulting Physician Vascular Surgery 05/24/17 Aquiles Herrera MD [address] [phone] Consulting Physician Cardiovascular Disease 05/24/17 Ellen Claudio MD [address] [place] [id number] Consulting Physician Physical Medicine/Rehabilitation 05/24/17 Special Effects Specialist Relationship Specialty Start Date End Date Phyllis Mae MD [address] [place] [address] PCP - General Internal Medicine 11/28/18 04/13/20 Phyllis Mae MD [address] [place] [address] PCP - General Internal Medicine 04/14/20 Phyllis Mae MD [address] [place] [address] Internal Medicine 04/14/20 Rochelle Cheung MD [address] [place] [address] Consulting Physician Nephrology 04/12/17 Cameron Munguia III, DO [address] [place] [address] Consulting Physician Vascular Surgery 05/24/17 Aquiles Herrera MD [address] [address] Consulting Physician Cardiovascular Disease 05/24/17 Ellen Claudio MD [address] [place] [address], [place] [phone] Consulting Physician Physical Medicine/Rehabilitation 05/24/17 Special Effects Specialist Relationship Specialty Start Date End Date Jose Dailey MD [address] [place] [address] PCP - General Internal Medicine 09/23/16 11/27/18 Phyllis Mae MD [address] [place] [address] PCP - General Internal Medicine 11/28/18 04/13/20 Phyllis Mae MD [address] [place] [address] PCP - General Internal Medicine 04/14/20 Phyllis Mae MD [address] [place] [address] Internal Medicine 04/14/20 Rochelle Cheung MD [address] [place] [address] Consulting Physician Nephrology 04/12/17 Cameron Munguia III, DO [address] [place] [address] Consulting Physician Vascular Surgery 05/24/17 Aquiles Herrera MD [address] [address] Consulting Physician Cardiovascular Disease 05/24/17 Ellen Claudio MD [address] [place] [address] [place] [address] Consulting Physician Physical Medicine/Rehabilitation 05/24/17 Special Effects Specialist Relationship Specialty Start Date End Date Phyllis Mae MD [address] [place] [address] PCP - General 07/02/19 Phyllis Mae MD [address] [place] [address] PCP - [employer] Medicare Advantage PCP 10/30/21 Marley Velarde, certified pharmacist assistantDental Secretary 03/03/23 Special Effects Specialist Relationship Specialty Start Date End Date Phyllis Mae MD [address] [place] [address] PCP - General Internal Medicine 04/14/20 Phyllis Mae MD [address] [place] [address] Internal Medicine 04/14/20 Rochelle Cheung MD [address] [place] [address] Consulting Physician Nephrology 04/12/17 Cameron Munguia III, DO [address] [place] [address] Consulting Physician Vascular Surgery 05/24/17 Aquiles Herrera MD [address] [address] Consulting Physician Cardiovascular Disease 05/24/17 Ellen Claudio MD [address] [place] [address] Consulting Physician Physical Medicine/Rehabilitation 05/24/17 Special Effects Specialist Relationship Specialty Start Date End Date Phyllis Mae MD [address] [place] [address] PCP - General Internal Medicine 04/14/20 Phyllis Mae MD [address] [place] [address] Internal Medicine 04/14/20 Rochelle Cheung MD [address] [place] [address] Consulting Physician Nephrology 04/12/17 Cameron Munguia III, DO [facility] [place] [address] Consulting Physician Vascular Surgery 05/24/17 Aquiles Herrera MD [address] [address] Consulting Physician Cardiovascular Disease 05/24/17 Ellen Claudio MD [address] [place] [address] Consulting Physician Physical Medicine/Rehabilitation 05/24/17 Special Effects Specialist Relationship Specialty Start Date End Date Phyllis Mae MD [address] [place] [address] PCP - General Internal Medicine 04/14/20 Phyllis Mae MD [address] [place] [address] Internal Medicine 04/14/20 Rochelle Cheung MD [address] [place] [address] Consulting Physician Nephrology 04/12/17 Cameron Munguia III, DO [address] [facility] [place] [address] Consulting Physician Vascular Surgery 05/24/17 Aquiles Herrera MD [address] [address] Consulting Physician Cardiovascular Disease 05/24/17 Ellen Claudio MD [address] [place] [address] [phone] Consulting Physician Physical Medicine/Rehabilitation 05/24/17 Special Effects Specialist Relationship Specialty Start Date End Date Phyllis Mae MD [address] [place] [address] PCP - General 07/02/19 Phyllis Mae MD [address] [place] [address] PCP - [employer] Medicare Advantage PCP 10/30/21 Special Effects Specialist Relationship Specialty Start Date End Date Phyllis Mae MD 2020 [place] [address] PCP - General Internal Medicine 04/14/20 Phyllis Mae MD [address] [place] [address] Internal Medicine 04/14/20 Rochelle Cheung MD [address] [place] [address] Consulting Physician Nephrology 04/12/17 Cameron Munguia III, DO [address] [place] [address] Consulting Physician Vascular Surgery 05/24/17 Aquiles Herrera MD [address] [place] [address] Consulting Physician Cardiovascular Disease 05/24/17 Ellen Claudio MD [address] [place] [address] Consulting Physician Physical Medicine/Rehabilitation 05/24/17 Special Effects Specialist Relationship Specialty Start Date End Date Phyllis Mae MD [address] [place] [place] [address] PCP - General Internal Medicine 04/14/20 Phyllis Mae MD 2020 [place] [address] Internal Medicine 04/14/20 Rochelle Cheung MD [address] [place] [place] [address] Consulting Physician Nephrology 04/12/17 Cameron Munguia III, [address] [place] [address] Consulting Physician Vascular Surgery 05/24/17 Aquiles Herrera MD [address] [address] Consulting Physician Cardiovascular Disease 05/24/17 Ellen Claudio MD [address] [place] [address] [phone] Consulting Physician Physical Medicine/Rehabilitation 05/24/17 Special Effects Specialist Relationship Specialty Start Date End Date Phyllis Mae MD [address] [place] [address] PCP - General 07/02/19 Phyllis Mae MD [address] [place] [address] PCP - [employer] Medicare Advantage PCP 10/30/21 Special Effects Specialist Relationship Specialty Start Date End Date Phyllis Mae MD [address] [place] [address] PCP - General Internal Medicine 04/14/20 Phyllis Mae MD 2020 [place] [address] Internal Medicine 04/14/20 Rochelle Cheung MD [address] [place] [address] Consulting Physician Nephrology 04/12/17 Cameron Munguia III, DO 335 [place] [address] Consulting Physician Vascular Surgery 05/24/17 Aquiles Herrera MD [address] [address] Consulting Physician Cardiovascular Disease 05/24/17 Ellen Claudio MD [address] [place] [address] Consulting Physician Physical Medicine/Rehabilitation 05/24/17 Special Effects Specialist Relationship Specialty Start Date End Date Phyllis Mae MD [address] [place] [address] PCP - General Internal Medicine 04/14/20 Phyllis Mae MD [address] [place] [address] Internal Medicine 04/14/20 Rochelle Cheung MD [address] [place] [address] Consulting Physician Nephrology 04/12/17 Cameron Munguia III, DO [address] [place], [place] [address] [address] Consulting Physician Vascular Surgery 05/24/17 Aquiles Herrera MD [address] [address] Consulting Physician Cardiovascular Disease 05/24/17 Ellen Claudio MD [address] [place] [address] Consulting Physician Physical Medicine/Rehabilitation 05/24/17 Special Effects Specialist Relationship Specialty Start Date End Date Phyllis Mae MD [address] [place] [place] [address] PCP - General Internal Medicine 04/14/20 Phyllis Mae MD [address] [place] [address] Internal Medicine 04/14/20 Rochelle Cheung MD [address] [place] [address] Consulting Physician Nephrology 04/12/17 Cameron Munguia III, DO [facility] [place] [address] Consulting Physician Vascular Surgery 05/24/17 Aquiles Herrera MD [address] [place] [address] Consulting Physician Cardiovascular Disease 05/24/17 Ellen Claudio MD [address] [place], [place] [address] [address] Consulting Physician Physical Medicine/Rehabilitation 05/24/17 Special Effects Specialist Relationship Specialty Start Date End Date Phyllis Mae MD [address] [place] [place] [address] PCP - General Internal Medicine 04/14/20 Phyllis Mae MD 2020 [place] [address] Internal Medicine 04/14/20 Rochelle Cheung MD [address] [place] [address] Consulting Physician Nephrology 04/12/17 Cameron Munguia III, DO [address] [place], [place] [phone] Consulting Physician Vascular Surgery 05/24/17 Aquiles Herrera MD [address] [phone] Consulting Physician Cardiovascular Disease 05/24/17 Ellen Claudio MD [address] [place] [address] Yelena [place], [place] [phone] Consulting Physician Physical Medicine/Rehabilitation 05/24/17 Special Effects Specialist Relationship Specialty Start Date End Date Phyllis Mae MD [address] [place] [address] PCP - General 07/02/19 Phyllis aMe MD [address] [place] [address] PCP - [employer] Medicare Advantage PCP 10/30/21 Special Effects Specialist Relationship Specialty Start Date End Date Phyllis Mae MD [address] [place] [address] PCP - General 07/02/19 Phyllis Mae MD [address] [place] [address] PCP - [employer] Medicare Advantage PCP 10/30/21 Special Effects Specialist Relationship Specialty Start Date End Date Phyllis Mae MD 2020 [place] [address] PCP - General Internal Medicine 04/14/20 Phyllis Mae MD [address] [place] [address] Internal Medicine 04/14/20 Rochelle Cheung MD [address] [place] [address] Consulting Physician Nephrology 04/12/17 Cameron Munguia III, DO [address] [place] [address] Consulting Physician Vascular Surgery 05/24/17 Aquiles Herrera MD [address] [place] [address] Consulting Physician Cardiovascular Disease 05/24/17 Ellen Claudio MD [address] [place], [place] [address] [place], [place] [phone] Consulting Physician Physical Medicine/Rehabilitation 05/24/17 Special Effects Specialist Relationship Specialty Start Date End Date Phyllis Mae MD [address] [place] [address] PCP - General Internal Medicine 04/14/20 Phyllis Mae MD 2020 [place] [address] Internal Medicine 04/14/20 Rochelle Cheung MD [address] [place] [address] Consulting Physician Nephrology 04/12/17 Cameron Munguia III, [address] [place] [address] Consulting Physician Vascular Surgery 05/24/17 Aquiles Herrera MD [address] [address] Consulting Physician Cardiovascular Disease 05/24/17 Ellen Claudio MD [address] [place] [address] Consulting Physician Physical Medicine/Rehabilitation 05/24/17 Special Effects Specialist Relationship Specialty Start Date End Date Phyllis Mae MD [address] [place] [address] PCP - General Internal Medicine 04/14/20 Phyllis Mae MD [address] [place] [address] Internal Medicine 04/14/20 Rochelle Cheung MD [address] [place] [address] Consulting Physician Nephrology 04/12/17 Cameron Munguia III, DO [address] [facility] [place] [address] Consulting Physician Vascular Surgery 05/24/17 Aquiles Herrera MD [address] [address] Consulting Physician Cardiovascular Disease 05/24/17 Ellen Claudio MD [address] [place] [address] Consulting Physician Physical Medicine/Rehabilitation 05/24/17 Special Effects Specialist Relationship Specialty Start Date End Date Phyllis Mae MD [address] [place] [address] PCP - General Internal Medicine 04/14/20 Phyllis Mae MD [address] [place] [address] Internal Medicine 04/14/20 Rochelle Cheung MD [address] [place] [address] Consulting Physician Nephrology 04/12/17 Cameron Munguia III, DO [facility] [place] [address] Consulting Physician Vascular Surgery 05/24/17 Aquiles Herrera MD [address] [address] Consulting Physician Cardiovascular Disease 05/24/17 Ellen Claudio MD [address] [place] [address] Consulting Physician Physical Medicine/Rehabilitation 05/24/17 Special Effects Specialist Relationship Specialty Start Date End Date Phyllis Mae MD [address] [place] [address] PCP - General Internal Medicine 04/14/20 Phyllis Mea MD [address] [place] [address] Internal Medicine 04/14/20 Rochelle Cheung MD [address] [place] [address] Consulting Physician Nephrology 04/12/17 Cameron Munguia III, DO 335 [place] [address] Consulting Physician Vascular Surgery 05/24/17 Aquiles Herrera MD [address] [address] Consulting Physician Cardiovascular Disease 05/24/17 Ellen Claudio MD [address] [place] [address] [place] [address] Consulting Physician Physical Medicine/Rehabilitation 05/24/17 Special Effects Specialist Relationship Specialty Start Date End Date Phyllis Mae MD [address] [place] [address] PCP - General Internal Medicine 04/14/20 Phyllis Mae MD [address] [place] [address] Internal Medicine 04/14/20 Rochelle Cehung MD [address] [place] [address] Consulting Physician Nephrology 04/12/17 Cameron Munguia III, DO 335 [place] [address] Consulting Physician Vascular Surgery 05/24/17 Aquiles Herrera MD [address] [address] Consulting Physician Cardiovascular Disease 05/24/17 Ellen Claudio MD [address] [place] [address] Consulting Physician Physical Medicine/Rehabilitation 05/24/17 Special Effects Specialist Relationship Specialty Start Date End Date Phyllis Mae MD [address] [place] [address] PCP - General Internal Medicine 04/14/20 Phyllis Mae MD [address] [place] [address] Internal Medicine 04/14/20 Rochelle Cheung MD [address] [place] [address] Consulting Physician Nephrology 04/12/17 Cameron Munguia III, DO [address] [place], [place] [phone] Consulting Physician Vascular Surgery 05/24/17 Aquiles Herrera MD [address] [address] Consulting Physician Cardiovascular Disease 05/24/17 Ellen Claudio MD [address] [place] [address] Consulting Physician Physical Medicine/Rehabilitation 05/24/17 Special Effects Specialist Relationship Specialty Start Date End Date Phyllis Mae MD [address] [place] [address] PCP - General Internal Medicine 04/14/20 Phyllis Mae MD [address] [place] [address] Internal Medicine 04/14/20 Rochelle Cheung MD [address] [place] [address] Consulting Physician Nephrology 04/12/17 Cameron Munguia III, DO 335 [place] [address] Consulting Physician Vascular Surgery 05/24/17 Aquiles Herrera MD [address] [place] [address] Consulting Physician Cardiovascular Disease 05/24/17 Ellen Claudio MD [address] [place] [address] Consulting Physician Physical Medicine/Rehabilitation 05/24/17 Special Effects Specialist Relationship Specialty Start Date End Date Phyllis Mae MD [address] [place] [place] [address] PCP - General Internal Medicine 04/14/20 Phyllis Mae MD 2020 [place] [address] Internal Medicine 04/14/20 Rochelle Cheung MD [address] [place] [place] [address] Consulting Physician Nephrology 04/12/17 Cameron Munguia III, [address] [place] [address] Consulting Physician Vascular Surgery 05/24/17 Aquiles Herrera MD [address] [place] [address] Consulting Physician Cardiovascular Disease 05/24/17 Ellen Claudio MD [address] [place] [address] Consulting Physician Physical Medicine/Rehabilitation 05/24/17 Special Effects Specialist Relationship Specialty Start Date End Date Phyllis Mae MD [address] [place] [address] PCP - General Internal Medicine 04/14/20 Phyllis Mae MD [address] [place] [address] Internal Medicine 04/14/20 Rochelle Cheung MD [address] [place] [address] Consulting Physician Nephrology 04/12/17 Cameron Munguia III, DO [facility] [place] [address] Consulting Physician Vascular Surgery 05/24/17 Aquiles Herrera MD [address] [address] Consulting Physician Cardiovascular Disease 05/24/17 Ellen Claudio MD [address] [place] [address] Consulting Physician Physical Medicine/Rehabilitation 05/24/17 Special Effects Specialist Relationship Specialty Start Date End Date Phyllis Mae MD [address] [place] [address] PCP - General 07/02/19 Phyllis Mae MD [address] [place] [address] PCP - [employer] Medicare Advantage PCP 10/30/21 Special Effects Specialist Relationship Specialty Start Date End Date Phyllis Mae MD [address] [place] [address] PCP - General Internal Medicine 04/14/20 Phyllis Mae MD [address] [place] [address] Internal Medicine 04/14/20 Rochelle Cheung MD [address] [place] [address] Consulting Physician Nephrology 04/12/17 Cameron Munguia III, DO [address] [place] [address] Consulting Physician Vascular Surgery 05/24/17 Aquiles Herrera MD [address] [address] Consulting Physician Cardiovascular Disease 05/24/17 Ellen Claudio MD [address] [place], [place] [address] [address] Consulting Physician Physical Medicine/Rehabilitation 05/24/17 Special Effects Specialist Relationship Specialty Start Date End Date Phyllis Mae MD [address] [place] [address] PCP - General 07/02/19 Phylils Mae MD [address] [place] [address] PCP - Human Medicare Advantage PCP 10/30/21 Special Effects Specialist Relationship Specialty Start Date End Date Phyllis Mae MD [address] [place] [place] [address] PCP - General Internal Medicine 04/14/20 Phyllis Mae MD [address] [place] [address] Internal Medicine 04/14/20 Rochelle Cheung MD [address] [place] [address] Consulting Physician Nephrology 04/12/17 Cameron Munguia III, DO [address] [place] [address] Consulting Physician Vascular Surgery 05/24/17 Aquiles Herrera MD [address] [address] Consulting Physician Cardiovascular Disease 05/24/17 Ellen Claudio MD [address] [place] [address] [place] [address] Consulting Physician Physical Medicine/Rehabilitation 05/24/17 Special Effects Specialist Relationship Specialty Start Date End Date Phyllis Mae MD 2020 [place] [address] PCP - General Internal Medicine 04/14/20 Phyllis Mae MD [address] [place] [place] [address] Internal Medicine 04/14/20 Rochelle Cheung MD [address] [place] [address] Consulting Physician Nephrology 04/12/17 Cameron Munguia III, DO [address] [place] [address] Consulting Physician Vascular Surgery 05/24/17 Aquiles Herrera MD [address] [place] [address] Consulting Physician Cardiovascular Disease 05/24/17 Ellen Claudio MD [address] [place] [address] Consulting Physician Physical Medicine/Rehabilitation 05/24/17 Special Effects Specialist Relationship Specialty Start Date End Date Phyllis Mae MD [address] [place] [address] PCP - General 07/02/19 Phyllis Mae MD [address] [place] [address] PCP - [employer] Medicare Advantage PCP 10/30/21 Special Effects Specialist Relationship Specialty Start Date End Date Phyllis Mae MD [address] [place] [address] PCP - General Internal Medicine 04/14/20 Phyllis Mae MD [address] [place] [address] Internal Medicine 04/14/20 Rochelle Cheung MD [address] [place] [address] Consulting Physician Nephrology 04/12/17 Cameron Munguia III, DO [address] [place] [address] Consulting Physician Vascular Surgery 05/24/17 Aquiles Herrera MD [address] [address] Consulting Physician Cardiovascular Disease 05/24/17 Ellen Claudio MD [address] [place] [address] Consulting Physician Physical Medicine/Rehabilitation 05/24/17 Team Status: Active Member Role Status Dates Dr. Phyllis Mae MD Primary Care Provider Active Team Status: Inactive Member Role Status Dates Dr. Phyllis Mae MD Primary Care Provider Active Start: December 02, 2024 End: December 02, 2024 Dr. Phyllis Mae MD Attending Provider Active Start: December 02, 2024 End: December 02, 2024 Dr. Phyllis Mae MD Referring Provider Active Start: December 02, 2024 End: December 02, 2024 Team Status: Inactive Member Role Status Dates Dr. Phyllis Mae MD Primary Care Provider Active Start: December 24, 2024 End: December 24, 2024 JONATAN LANGLEY Attending Provider Active Start : December 24, 2024 End: December 24, 2024 JONATAN LANGLEY Referring Provider Active Start : December 24, 2024 End: December 24, 2024 Team Status: Inactive Member Role Status Dates Dr. Phyllis Mae MD Primary Care Provider Active Start: January 27, 2025 End: January 27, 2025 Dr. Sharmila LOTT MD Attending Provider Active Start: January 27, 2025 End: January 27, 2025 Dr. Sharmila LOTT MD Referring Provider Active Start: January 27, 2025 End: January 27, 2025 Team Status: Inactive Member Role Status Dates Dr. Phyllis Mae MD Primary Care Provider Active Start: February 19, 2025 End: February 19, 2025 Manohar LOTT MD Attending Provider Active Start: February 19, 2025 End: February 19, 2025 Team Status: Active Member Role Status Dates Dr. Phyllis Mae MD Primary Care Provider Active Start: February 23, 2025 Dr. Sharmila LOTT MD Attending Provider Active Start: February 23, 2025 Dr. Sharmila LOTT MD Referring Provider Active Start: February 23, 2025 Team Status: Inactive Member Role Status Dates Dr. Phyllis Mae MD Primary Care Provider Active Start: April 10, 2025 End: April 10, 2025 Dr. Joel Slaughter DO Emergency Provider Activ e Start: April 10, 2025 End: April 10, 2025 Team Status: Inactive Member Role Status Dates Dr. Phyllis Mae MD Primary Care Provider Active Start: April 10, 2025 End: April 10, 2025 Dr. Joel Slaughter DO Attending Provider Activ e Start: April 10, 2025 End: April 10, 2025 Dr. Joel Slaughter DO Emergency Provider Activ e Start: April 10, 2025 End: April 10, 2025 Team Status: Active Member Role Status Dates Dr. Phyllis Mae MD Primary Care Provider Active Start: April 16, 2025 Manohar LOTT MD Attending Provider Active Start: April 16, 2025 Manohar LOTT MD Referring Provider Active Start: April 16, 2025 Team Status: Inactive Member Role Status Dates Dr. Phyllis Mae MD Primary Care Provider Active Start: April 17, 2025 End: April 17, 2025 Dr. Phyllis Mae MD Referring Provider Active Start: April 17, 2025 End: April 17, 2025 Deshaun Salcedo MD Attending Provider Active St art: April 17, 2025 End: April 17, 2025 <item> Privacy Markings (unrecogniz ed section and content) Section Author: Chari Naranjo PROHIBITION ON REDISCLOSURE OF CONFIDENTIAL INFORMATION This notice accompanies a disclosure of information concerning a client made to you with the consent of such client. Goals (unrecognized section and content) Goals may be documented in a n alternate sectionGoals may be documented in an alternate sectionGoals may be documented in an alternate sectionGoals may be documented in an alternate section FOR RECORDS PERTAINING TO PATIENTS WHO ARE OR HAVE BEEN ENROLLED IN A CHEMICAL DEPENDENCY/SUBSTANCEABUSE PROGRAM, SOME INFORMATION MAY BE OMITTED. This clinical summary was aggregated from multiple sources. Caution should be exercised in using it in the provision of clinical care. This summary normalizes information from multiple sources, and as a consequence, information in this document may materially change the coding, format and clinical context of patient data. In addition, data may be omitted in some cases. CLINICAL DECISIONS SHOULD BE BASED ON THE PRIMARY CLINICAL RECORDS. [employer] provides no warranty or guarantee [id number] the accuracy or completeness of information in this document.
[2025-04-22 08:22] LABS: PTHIN 21 pg/mL (11-61)
[2025-04-22 08:25] LABS: Ferritin 578 ng/mL (37-417); Iron 67 ug/dL (65-175); Iron Binding Capacity,Total 340 ug/dL (250-450); Iron Binding Capacity,Unsat 273 ug/dL (228-428)
[2025-04-22 10:19] LABS: Albumin, Serum 3.6 g/dL (3.4-4.8); Anion Gap 11 (5-15); BUN 30 mg/dL (4-19); BUN/Creat Ratio 15.6 RATIO (10-20); Calcium,Total 9.3 mg/dL (7.6-11.0); Carbon Dioxide 22.2 mmol/L (21.0-32.0); Chloride 105 mmol/L (98-108); Creatinine, Serum 1.91 mg/dL (0.70-1.20); EST Glomerular Filtration Rate 36 (>60); Glucose 173 mg/dL (70-99); Phosphorus 3.1 mg/dL (2.7-4.5); Potassium 4.6 mmol/L (3.3-5.1); Sodium Level 139 mmol/L (133-145)
== END ==
LOC: OLS.SWAL 05:00
PROVIDERS: PCP Internal Medicine
DX: N18.32 Chronic kidney disease, stage 3b (principal); D64.9 Anemia, unspecified
CPT/HCPCS: 36415; 80069; 82728; 83540; 83550; 83970

== ENCOUNTER → 2025-05-28 05:00 | Outpatient (REF) | payer MEDICARE, MEDICAID, SELFPAY ==
[2025-05-28 07:42] LABS: Hematocrit 30.7 % (40-54); Hemoglobin 10.2 g/dL (13.0-16.5); Mean Corp Hgb Conc 33.2 g/dL (32-36); Mean Corpuscular Volume 96.2 fL (80-94); Mean Platelet Vol. 11.3 fl (6.2-12.0); Platelet Count 279 K/mm3 (150-450); RBC Distribution Width CV 13.6 % (11.6-14.6); RBC Distribution Width SD 47.9 fl (35.1-43.9); Red Blood Count 3.19 M/mm3 (4.6-6.2); White Blood Count 8.3 K/mm3 (4.4-11.0)
[2025-05-28 08:01] LABS: BUN 32 mg/dL (4-19); BUN/Creat Ratio 17.2 RATIO (10-20); Calcium,Total 9.1 mg/dL (7.6-11.0); Carbon Dioxide 21.4 mmol/L (21.0-32.0); Chloride 100 mmol/L (98-108); Glucose 407 mg/dL (70-99); Potassium 4.9 mmol/L (3.3-5.1)
[2025-05-28 08:02] LABS: Anion Gap 11 (5-15)
== END ==
LOC: OLS.SWAL 05:00
PROVIDERS: PCP Internal Medicine; Visit Provider Internal Medicine
DX: E11.9 Type 2 diabetes mellitus without complications (principal); I10 Essential (primary) hypertension
CPT/HCPCS: 36415; 80048; 83036; 85027

== ENCOUNTER → 2025-05-30 | Outpatient (REF) | payer MEDICARE, MEDICAID, SELFPAY ==
[2025-05-30 07:32] LABS: Mucous, Urine 0 SEEN /hpf (<or=2+); Red Blood Cells-Urine 0 SEEN /hpf (0-5)
[2025-05-30 08:37] LABS: Color, Urine Yellow (Yellow); Glucose, Dipstick 250 mg/dl (Normal); Ketone-Dipstick Negative (Negative); Leukocyte Esterase-Dipstick Negative /ul (Negative); Nitrite-Dipstick Negative (Negative); Occult Blood-Urine Negative /ul (Negative); Protein-Dipstick 100 mg/dl (Negative); Specific Gravity, Urine 1.010 (1.002-1.030); Urine Bilirubin Dipstick Negative (Negative)
[2025-05-30 08:59] LABS: Squamous Epithelial Cells - UA 0-5 SEEN /hpf (0-5)
== END ==
LOC: OLS.SWAL 05:00
PROVIDERS: PCP Internal Medicine; Visit Provider Internal Medicine
DX: N39.0 Urinary tract infection, site not specified (principal)
CPT/HCPCS: 81001; 87086; 87088

== ENCOUNTER → 2025-06-11 05:00 | Outpatient (REF) | payer MEDICARE, MEDICAID, SELFPAY ==
--- OUTSIDE RECORDS SUMMARY | 2025-06-11 04:00 | XMS RPT_ITS | CCD ---
Author Organization [facility] Care Team Providers Care Supervisor [employer] Name Role Phone Sulove, Saksham Unavailable Kamadana, Rochelle Unavailable Cameron Munguia Unavailable Aquiles Herrera Unavailable [phone] Claudio, Nancy-Chiew Unavailable PHYLLIS MAE Attending Unavailable CARMELITA, PHYLLIS Referring Unavailable Sulove, Saksham Primary Care Provider [phone] Mattadana, Rochelle Unavailable Cameron Munguia Unavailable Aquiles [...] Unavailabl e Esdras, Guillermo Attending Unavailabl e [facility], Phyllis Primary Care Provider Kamadana, Rochelle Unavailable Cameron Munguia Unavailable Aquiles Herrera Unavailable [phone] ZARRABI, PHYLLIS Primary Care Unavailable BRET FUENTES [...] Munguia Unavailable Aquiles Herrera Unavailable Carmelita WILSON, [facility] Primary Care Provider Phyllis Mae MD Unavailable Jonatan WILSON, Rochelle Unavailable Felice PICKETT DO W. Don Unavailable [phone] Aquiles Herrera MD Unavailable González WILSON, Nancy-Chiew Unavailable Carmelita WILSON [facility] Primary Care Provider Phyllis Mae MD Unavailable Jonatan WILSON, Rochelle Unavailable Felice PICKETT DO, W. Don Unavailable Aquiles Herrera MD Unavailable González WILSON, Nancy-Chiew Unavailable Zarrabi, Phyllis Unavailable Unavailable Unavailable Felice PICKETT DO W. Don Unavailable Aquiles Herrera MD Unavailable Phyllis Mae MD Unavailable Unavailable Zarrabi, Phyllis Unavailable Unavailable Sulove, Saksham Unavailable Unavailable Carmelita WILSON, [facility] Primary Care Provider Phyllis Mae MD Unavailable Thao Cheung MDapna Unavailable [phone] Felice PICKETT DO, W. Don Unavailable Aquiles [...] Mae MD Primary Care Provider Ashlie WILSON [facility] Primary Care Provider [phone] Phyllis Mae Primary Care Unavailable Phyllis Mae [...] Primary Care Provider Phyllis Mae MD Unavailable Marley Velarde RN Unavailable Unavailable ZARRABI, PHYLLIS [...] WVito Don Unavailable Aquiles Herrera MD Unavailable ZARRABI, PHYLLIS Primary Care Unavailable AQUILES [...] Provider Dr. Phyllis Mae MD Referring Provider [phone] ROCHELLE CHEUNG Attending Provider ROCHELLE CHEUNG Referring Provider Jenni WILSON, Dr. Doll Attending Provider Unavaila Dr. Sharmila Schafer MD Referring Provider Unavaila dolly ASIFRRABI, PHYLLIS Attending Unavailable ZARRABI, PHYLLIS Primary Care Unavailable ZARRABI, PHYLLIS Attending Unavailable ZARRABI, PHYLLIS Primary Care Unavailable ZARRABI, PHYLLIS Attending Unavailable ZARRABI, PHYLLIS Primary Care Unavailable ZARRABI, PHYLLIS Attending Unavailable ZARRABI, PHYLLIS Primary Care Unavailable Carmelita WILSON, Dr. Corado Primary Care Provider Manohar Pablo MD Attending Provider Unavailable Dr. Joel Slaughter DO Emergency Provider Dr. Joel Slaughter DO Attending Provider Manohar Pablo MD Referring Provider Unavailable Dr. Phyllis Mae MD Referring Provider [phone] Deshaun Salcedo MD Attending Provider Gudla OLS, Sharmila Attending Unavailable Gudla OLS, Sharmila Referring Unavailable Zarrabi, Phyllis Primary Care Unavailable Zarrabi, Phyllis Primary Care Unavailable Samy OLS, Manohar Attending Unavailable Gudla OLS, Sharmila Attending Unavailable Gudla OLS, Sharmila Referring Unavailable Zarrabi, Phyllis Primary Care Unavailable Zarrabi, Phyllis Primary Care Unavailable Samy OLS, Manohar Attending Unavailable Samy OLS, Manohar Referring Unavailable Zarrabi, Phyllis Primary Care Unavailable Samy OLS, Manohar Attending Unavailable Zarrabi, Phyllis Primary Care Unavailable Gudla OLS, Sharmila Attending Unavailable Gudla OLS, Sharmila Attending Unavailable Zarrabi, Phyllis Primary Care Unavailable Zarrabi, Phyllis Primary Care Unavailable Deshaun Salcedo Attending Unavailable Zarrabi, Phyllis Referring Unavailable QUERESHY, JAQUI Attending Unavailable QUERESHY, JAQUI Referring Unavailable Zarrabi, Phyllis Primary Care Unavailable QUERESHY, JAQUI Attending Unavailable QUERESHY, JAQUI Referring Unavailable Zarrabi, Phyllis Primary Care Unavailable Zarrabi, Phyllis Primary Care Unavailable Zarrabi, Phyllis Attending Unavailable Zarrabi, Phyllis Referring Unavailable Zarrabi, Phyllis Primary Care Unavailable Joel Slaughter Attending Unavailabl e Allergies Allergy Classification Reported Allergen(s) Allergy Type Date of Onset Reaction(s) Facility Quinolones (antibiotic) (16 sources) levoFLOXacin; 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: [Levaquin] Drug Allergy 1 GI Intolerance [facility] varenicline (16 sources) varenicline; 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: [varenicline] Drug Allergy 8 [facility] (20 sources) varenicline; 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: [Unknown] Drug Allergy 8 [facility] (20 sources) levoFLOXacin; 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: [Levaquin] Drug Allergy Vomiting [facility] Work Phone: (20 sources) levoFLOXacin; 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: [LEVOFLOXACIN] Drug Allergy GI Intolerance, Other [facility] Comment on above: vomiting Medications Current Medications [...] pain or fever . 0 04/29/2021 Discontinued [id number] 200 actuat albuterol 0.09 mg/actuat metered dose [...] Anya Bustillos Generic Substitution Allowed Comments: Source=Surescripts, Medication=ALBUTEROL SUL 2.5 MG/3 ML SOLN, OriginatingSource=[facility]/pharmacy #[id number], OriginatingProvider=LOLA CRUZ, Duration=30, Mdgrexfu=544, Refills=11, Date Last Modified/Filled=14-May-2020 take 2 puff(s) by in halation every four hours as needed ALBUTEROL HFA 90 MCG INHALER ; 2 puff(s) inhaled every 4 hours, As Needed Quantity: 0 Refills: 11 Ordered: 10-Jun-2020 Anya Bustillos Generic Substitution Allowed Comments: Source=Surescripts, Medication=ALBUTEROL HFA 90 MCG INHALER, OriginatingSource=[facility]/pharmacy #[id number], OriginatingProvider=LOLA CRUZ, Duration=16, Quantity=6.7, Refills=11, Date [...] needed for wheezing. Active Comment on above: Source=Surescripts, Medication=ALBUTEROL HFA 90 MCG INHALER, OriginatingSource=[facility]/pharmacy #[id number], OriginatingProvider=LOLA CRUZ, Duration=16, Quantity=6.7, Refills=11, Date Last Modified/Filled=15-Apr-2020 Source=Surescripts, Medication=ALBUTEROL SUL 2.5 MG/3 ML SOLN, OriginatingSource=[facility]/pharmacy #[id number], OriginatingProvider=LOLA CRUZ, Duration=30, Aguqaxuz=062, Refills=11, Date Last Modified/Filled=14-May-2020 albuterol 90 mcg/actuation [...] Dihydropyridine Calcium Channel Danny Star t: 02-27 21 End: 02-28 21 take 2 tablets by mouth once daily amLODIPine (NORVASC) 2.5 MG tablet Take 2 (two) tablets (5 mg total) by mouth daily for 14 days . 28 tablet 0 03/12/2021 Active Start: 08-17-2020 take 1 tablet by silviano th once daily amLODIPine Besylate 5 MG Oral [...] Source=Surescripts, Medication=AMLODIPIN E BESYLATE 2.5 MG TAB, OriginatingSource=[facility]/pharmacy #[id number], OriginatingProvider=AQUILES HERRERA, Duration=90, Quantity=90, Refills=11, Date Last Modified/Filled=15-Nov-2019 aspirin 81 mg delayed release oral tablet (20 sources) Platelet Aggregation Inhibitor, Nonsteroidal Anti-inflammatory Drug Start: take 1 tablet by mouth once daily [...] Start: 05-28-2024 take 2 tablets by mo [facility] once daily atorvastatin (Lipitor) 20 mg tablet [...] blood-glucose meter kit (20 sources) Start: 12-19-19 24 blood-glucose meter kit 1 each by Other [...] Active Start: 12-27-2019 End: 04-06-2021 blood-glucose meter [facility] Ind ications: IDDM (insulin dependent diabetes mellitus) Accu-chek Elli plus meter. Use as directed 4 times daily. . 1 each 0 12/27/2019 04/06/2021 Discontinued Start: 12-27-2019 blood-glucose meter Mis Indications: IDDM (insulin dependent diabetes mellitus) Accu-chek Elli plus meter. Use as directed 4 times daily. . 1 each 0 12/27/2019 Active Start: 12-27-2019 blood-glucose meter [facility] Indications: IDDM (insulin dependent diabetes mellitus) (HCC) [...] Active blood-glucose meter,continuo us (FreeStyle Hung 3 [place]) [facility] (2 sources) Start: 11-25-2024 blood-glucose meter,continuous (FreeStyle Hung 3 [place]) [facility] Indications: Type 2 diabetes mellitus with stage [...] 11/25/2024 Active Blood-Glucose,Receive r,Cont (Freestyle Hung 3 [place]) misc (1 source) Start: 04-17-2025 Blood-Glucose,Rece iver,Cont (Freestyle Hung 3 [place]) misc Active NMA .ROUTE .MEDSUPPLY April 17, 2025 [...] April 17, 2025 12:00am Comment on above: Source=XOG, Medication=CLOPIDOGREL 75 MG TABLET, OriginatingSource=[facility]/pharmacy #[id number], OriginatingProvider=PHYLLIS MAE, Duration=90, Quantity=90, Refills=3, Date [...] Active docusate sodium 50 mg / sennosides, senior living 8.6 mg oral tablet (6 sources) Start: [...] above: Source=Surescripts, Medication=FAMOTIDIN E 20 MG TABLET, OriginatingSource=[facility]/pharmacy #[id number], OriginatingProvider=ZARRABI, PHYLLIS, Duration=90, Chalohvt=805, Refills=11, Date Last Modified/Filled=02-Apr-2020 fenofibrate 145 mg [...] Comment on above: Source=Surescripts, Medication=WIXELA 500-50 INHUB, OriginatingSource=[facility]/pharmacy #[id number], OriginatingProvider=LOLA CRUZ, Duration=90, Lfgrkyih=515, Refills=3, Date Last Modified/Filled=28-May-2020 FreeStyle Hung 3 [place] misc (1 source) Start: FreeStyle Hung 3 [place] misc 1 Device. 11/25/2024 Active 3 ml [...] day Quantity: 0 Refills: 0 Ordered: 04-Jan-2021 Ruddy, Eboni Generic Substitution Allowed inject 30 [IU] by danielson bcutaneous injection twice daily insulin glargine (LANTUS) [...] oral tablet (20 sources) Nitrate Vasodilator Start: 04-17-2025 take 1 tablet by mouth once daily, [...] Source=Surescripts, Medication=ISOSORBIDE MONONIT ER 30 MG TB, OriginatingSource=[facility]/pharmacy #[id number], OriginatingProvider=ROCHELLE CHEUNG, Duration=90, Quantity=90, Refills=1, Date Last Modified/Filled=01-Apr-2020 Lantus Solostar 100 Unit/Ml (3 Ml) Subcutaneous Insulin Pen (4 sources) Star t: 08-31 16 LANTUS SOLOSTAR 100 unit/mL (3 mL) InPn [...] on above: Source=Surescripts, Medication=LOVASTATIN 10 MG TABLET, OriginatingSource=[facility]/pharmacy #[id number], OriginatingProvider=PHYLLIS MAE, Duration=90, Quantity=90, Refills=11, Date Last Modified/Filled=07-Nov-2019 magnesium oxide 400 mg oral tablet (16 sources) magnesium oxide 400 mg magnesium Tab Take by mouth 2 (two) times a day . 0 Active wdsnnrda-eduk-VA-sheldon cium-mins 9 mg iron-400 mcg Tab (20 sources) igyjnaic-taxq-AB -sheldon cium-mins 9 mg iron-400 mcg Tab Take 1 (one) tablet by mouth daily . Active dtjqpkpl-yupg-OL -calcium-mins 9 mg iron-400 mcg Tab Take 1 (one) tablet by mouth daily . 0 Active ceiemhgq-nopi-UM -calcium-mins 9 mg iron-400 mcg Tab Take 1 tablet by mouth daily . 0 Active multivitamin with minerals (ncsyfkgvtacp-ksoh-favnq acid) tablet (9 sources) Start: 12-05-2024 take 1 tablet by mouth once daily multivitamin with minerals (mwvgwxehecdh-qmqv-ttqir acid) tablet Indications: Healthcare maintenance Take 1 tablet by mouth once daily. 30 tablet 11 12/05/2024 Active End: 12-05-2024 take 1 tablet by mouth once daily multivitamin with minerals (xocpzmkebssp-ezcj-dvboc acid) tablet Take 1 tablet by mouth once daily. 12/05/2024 Discontinued (Reorder) take 1 tablet by silviano th once daily multivitamin with minerals (lbdhanrfsgra-bcnz-nxglh acid) tablet Take 1 tablet by mouth once daily. Active take 1 tablet by silviano th once daily multivitamin with minerals (oyvspfupfeui-ufif-niemc acid) tablet Take 1 tablet by mouth once daily. 0 Active Multivitamin With Minerals Tablet (12 sources) take 1 tablet by mouth once daily multivitamin with minerals tablet Take 1 tablet by mouth daily. Active Gnnoafvuvbtc-Jri-Lttk-Fa- Vit K ([place]) 18 mg iron-400 mcg-25 mcg tablet (1 source) Start: 04-17-2025 take 1 tablet by mouth once daily Sjozhkdigwwk-Isj-Bufc-Fa-V it K ([place]) 18 mg iron-400 mcg-25 [...] above: Source=Surescripts, Medication=nitroglycerin 0.4 mg sublingual tablet, OriginatingSource=[id number], OriginatingProvider=, , Duration=7, Quantity=25, Refills=5, Date Last [...] Source=Surescripts, Medication=PAROXETIN E HCL 20 MG TABLET, OriginatingSource=[facility]/pharmacy #[id number], OriginatingProvider=PHYLLIS MAE, Duration=90, Quantity=90, Refills=4, Date Last [...] Start: 08-13-2022 take 2 tablets by mo uth once daily primidone (MYSOLINE) 50 MG tablet [...] on above: Source=Surescripts, Medication=PRIMIDONE 50 MG TABLET, OriginatingSource=[facility]/pharmacy #[id number], OriginatingProvider=PHYLLIS MAE, Duration=30, Quantity=30, Refills=11, Date [...] Active Start: 09-09-2022 [address] [facility] every twenty-four hours Propranolol HCl ER 120 [...] above: Source=Surescripts, Medication=PROPRANOLOL ER 80 MG CAPSULE, OriginatingSource=[facility]/pharmacy #[id number], OriginatingProvider=AQUILES HERRERA, Duration=90, Quantity=90, Refills=3, Date Last [...] 12:00am Start: 12-11-2022 take 2 tablets by mo [facility] twice daily sodium bicarbonate 650 mg tablet [...] to Pharmacy)) take 2 tablets by mo [facility] in the morning, then take 2 tablets [...] Allowed Comments: Source=Surescripts, Medication=SPIRONOLACTONE 25 MG TABLET, OriginatingSource=[facility]/pharmacy #[id number], OriginatingProvider=MARCELLA CHEUNGNA, Duration=90, Quantity=90, Refills=1, Date Last Modified/Filled=07-Apr-2020 Comment on above: Source=Surescripts, Medication=SPIRONOLACTONE 25 MG TABLET, OriginatingSource=[facility]/pharmacy #[id number], OriginatingProvider=KAMADANA, ROCHELLE, Duration=90, Quantity=90, Refills=1, Date Last Modified/Filled=07-Apr-2020 sucralfate [...] 12:00am Start: 12-20-2023 take [address] [facility] once daily tamsulosin (Flomax) 0.4 mg 24 hr capsule Indications: Benign prostatic hyperplasia with lower urinary tract symptoms , Other obstructive and reflux uropathy TAKE 1 CAPSULE BY MOUTH EVERY DAY 90 capsule 3 12/20/2023 Active Start: 06-01-2021 take 1 tablet by [facility] once daily Tamsulosin HCl - 0.4 MG [...] 05/07/2021 06/06/2021 Active take [address] [facility] once daily tamsulosin (FLOMAX) 0.4 mg capsule Take 1 (one) capsule (0.4 mg total) by mouth daily . Active tiotropium 0.018 mg inhalation powder (20 sources) Anticholinergic Start: 04-17-2025 take 1 capsule by inhalation once daily Tiotropium [place] (Spiriva With Handihaler) 18 mcg capsule, w/inhalation device Active 1 NMA INHALATION daily April 17, 2025 12:00am Start: 12-05-2024 take 1 capsule by in halation once daily tiotropium (Spiriva) 18 mcg inhalation capsule Indications: Chronic obstructive pulmonary disease, unspecified COPD type (Multi) Place 1 capsule (18 mcg) into inhaler and inhale once daily. 90 capsule 3 12/05/2024 Active Start: 12-03-2024 End: 12-05-2024 take 1 capsule by inhalation once daily [...] Chronic obstructive pulmonary disease, unspecified COPD type ([facility]) Place 1 capsule (18 mcg) into inhaler and inhale once daily. AT THE SAME TIME EVERY DAY VIA HANDIHALER 90 capsule 3 08/22/2023 Active Start: 09-05-2017 SPIRIVA WITH H ANDIHALER 18 mcg inhalation capsule Start: 09-05-2017 SPIRIVA WITH H ANDIHALER 18 mcg inhalation capsule Comment on above: Source=Surescripts, Medication=SPIRIVA 18 MCG CP-HANDIHALER, OriginatingSource=[facility]/pharmacy #[id number], OriginatingProvider=LOLA CRUZ, Duration=90, Quantity=90, Refills=3, Date [...] Closed fracture of right hip, initial encounter ([facility]) Take 1 (one) tablet (50 mg total) [...] 0 02/13/2020 Active blood-glucose meter,continuous (Dexcom G7 Executive Vice President) Misc (1 source) Start: 09-09-2024 End: 09-09-2024 blood-glucose meter,continuous (Dexcom G7 Executive Vice President) Misc Indications: Type 2 diabetes mellitus with [...] above: Source=Surescripts, Medication=BUSPIRONE HCL 10 MG TABLET, OriginatingSource=[facility]/pharmacy #[id number], OriginatingProvider=PHYLLIS MAE, Duration=30, Quantity=90, Refills=5, Date [...] complication, with long-term current use of insulin ([facility]) Use as instructed 1 each 0 12/14/2023 Active Dexcom G7 Sensor device (1 source) Start: 11-20-2024 End: 12-05-2024 Dexcom G7 Sensor device Martha cations: Type 2 diabetes mellitus with other circulatory complication, with long-term current use of insulin CHANGE EVERY 10 DAYS 3 each 11 11/20/2024 12/05/2024 Discontinued (Therapy completed) Disability Placard [...] above: Source=Surescripts, Medication=FOLIC ACID 1 MG TABLET, OriginatingSource=[facility]/pharmacy #[id number], OriginatingProvider=LANCE PALACIOS, Duration=90, Quantity=90, Refills=11, Date Last [...] above: Source=Surescripts, Medication=LISINOPRI L 40 MG TABLET, OriginatingSource=[facility]/pharmacy #[id number], OriginatingProvider=PHYLLIS MAE, Duration=90, Quantity=90, Refills=11, Date [...] above: Source=Surescripts, Medication=METFORMIN HCL 500 MG TABLET, OriginatingSource=[facility]/pharmacy #[id number], OriginatingProvider=PHYLLIS MAE, Duration=90, Rgljzvgv=132, Refills=11, Date Last Modified/Filled=29-Apr-2020 methylPREDNISolone 4 MG [...] Tablet (4 sources) take 1 tablet by silviano th [...] above: Source=Surescripts, Medication=OMEPRAZOLE DR 20 MG CAPSULE, OriginatingSource=[facility]/pharmacy #[id number], OriginatingProvider=PHYLLIS MAE, Duration=90, Quantity=90, Refills=5, Date Last [...] ondansetron (ZOFRAN-ODT) disintegrating tablet 4 mg Pen Seymour (4 sources) Pen Seymour USE BID WITH LANTUS Refills: 0 Active Pen Seymour USE BID WITH LANTUS Refills: 0 DO Active Pen Seymour (1 source) Pen Seymour USE BID WITH LANTUS Refills: 0 DO Active piperacillin 3000 mg / tazobactam 375 mg injection (1 source) Penicillin-class Antibacterial, beta Lactamase Inhibitor Start: 04-27-20 End: 04-30-20 take 3.375 g intravenously every eight hours [...] (Stop Taking at Discharge) sodium zirconium cyclosilicate 01112 mg powder for oral suspension (1 source) [...] Resolved: 12-05-2024 03-03-2023 Chronic Chronic kidney disease (9 sources) Chronic kidney disease; 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: [Chronic kidney [...] Nail Care Onset: 06-27-2024 Urinary tract infections (2 sources) Acute urinary tract infection; 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: [Urinary tract infection, site not specified] Onset: 05-30-2025 Episodic Past or Other Problems Problem Classification Problem Date Documented Date Episodic/Chronic Abdominal pain (20 sources) Abdominal pain; 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: [Epigastric pain] Onset: 03-03-2023 Resolved: 12-05-2024 03-07-2023 Episodic Acute and unspecified renal failure (20 sources) Acute renal failure syndrome; 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: [Kijbs-la-gizxqgg renal failure] Onset: 04-06-2021 Resolved: 04-29-2021 04-06-2021 [...] 07-25-2024 07-25-2024 Episodic Other aftercare (8 sources) care home (current) use of insulin; 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: [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 Urine Culture GNR lactose chairman of the board [place] Count 1000-10,000 Mixed Gram Positive Organisms Mixed Gram Positive Organisms MIXC Mixed contaminants. Submit a new specimen if indicated. GNR lactose chairman of the board [place] Count <1000 Normal [facility] Comment on above: Performed By: #### L [id number], L501.5200, L501.9985, L503.0106, L500.4100, L506.1001, L500.4050, L100.0500 #### [facility] [address] [place], [address] Urinalysis, Completeon 05-30 EPI,SQUAMOUS 0-5 SEEN Normal 0-5 [facility] Comment on above: Order Comment: 111 Performed By: #### L [id number], L501.5200, L501.9985, L503.0106, L500.4100, L506.1001, L500.4050, L100.0500 #### [facility] [address] [place], [place], [id number] (653) BACTERIA 0 SEEN Normal None Seen [facility] Comment on above: Order Comment: 111 Performed By: #### L [id number], L501.5200, L501.9985, L503.0106, L500.4100, L506.1001, L500.4050, L100.0500 #### [facility] [address] [place], [place], [id number] (798) Mucus Ql (Urine sed) 0 SEEN Normal [facility] Comment on above: Order Comment: 111 Performed By: #### L [id number], L501.5200, L501.9985, L503.0106, L500.4100, L506.1001, L500.4050, L100.0500 #### [facility] [address] [place], [address] RBC 0 SEEN Normal 0-5 [facility] Comment on above: Order Comment: 111 Performed By: #### L [id number], L501.5200, L501.9985, L503.0106, L500.4100, L506.1001, L500.4050, L100.0500 #### [facility] [address] [place], [address] WBC 0 SEEN Normal 0-5 [facility] Comment on above: Order Comment: 111 Performed By: #### L [id number], L501.5200, L501.9985, L503.0106, L500.4100, L506.1001, L500.4050, L100.0500 #### [facility] [address] [place], [address] Basic Metabolic Profile (BMP )on 05-28-2024 GAP 11 Normal 5-15 [facility] Comment on above: Order Comment: 111 Performed By: #### L 100.0500 #### [facility] [address] [place], [address] BUN/CRE 17.2 RATIO Normal 10-20 [facility] Comment on above: Order Comment: 111 Performed By: #### L 100.0500 #### [facility] [address] [place], [address] Calcium [Mass/Vol] 9.1 mg/dL Normal 7.6-11.0 [facility] Comment on above: Order Comment: 111 Performed By: #### L 100.0500 #### [facility] [address] [place], [address] Chloride [Moles/Vol] 100 mmol/L Normal 98-108 [facility] Comment on above: Order Comment: 111 Performed By: #### L 100.0500 #### [facility] [address] [place], [address] CO2 [Moles/Vol] 21.4 mmol/L Normal 21.0-32.0 [facility] Comment on above: Order Comment: 111 Performed By: #### L 100.0500 #### [facility] [address] [place], [address] Creatinine [Mass/Vol] 1.86 mg/dL High 0.70-1.20 [facility] Comment on above: Order Comment: 111 Performed By: #### L 100.0500 #### [facility] [address] [place], [address] GFR/1.73 sq M.predicted among non-blacks MDRD (S/P/Bld) [Vol rate/Area] 37 mL/min/{1.73_m2} Low >60 [facility] Comment on above: Order Comment: 111 Result Comment: mL/m in/1.73m2 CKD-EPI Creatinine Equation (2020) Performed By: #### L 100.0500 #### [facility] [address] [place], [address] Glucose [Mass/Vol] 407 mg/dL High 70-99 [facility] Comment on above: Order Comment: 111 Performed By: #### L 100.0500 #### [facility] [address] [place], [address] Potassium [Moles/Vol] 4.9 mmol/L Normal 3.3-5.1 [facility] Comment on above: Order Comment: 111 Performed By: #### L 100.0500 #### [facility] [address] [place], [address] Sodium [Moles/Vol] 133 mmol/L Normal 133-145 [facility] Comment on above: Order Comment: 111 Performed By: #### L 100.0500 #### [facility] [address] [place], [address] Urea nitrogen [Mass/Vol] 32 mg/dL High 4-19 [facility] Comment on above: Order Comment: 111 Performed By: #### L 100.0500 #### [facility] [address] [place], [address] CBC-Complete Blood Cnt No Phyllis morse 05-28-2025 Erythrocyte distribution width (RBC) [Ratio] 13.6 % Normal 11.6-14.6 [facility] Comment on above: Order Comment: 111 Performed By: #### L 100.0500 #### [facility] [address] [place], [address] Hematocrit (Bld) [Volume fraction] 30.7 % Low 40-54 [facility] Comment on above: Order Comment: 111 Performed By: #### L 100.0500 #### [facility] [address] [place], [address] Hemoglobin (Bld) [Mass/Vol] 10.2 g/dL Low 13.0-16.5 [facility] Comment on above: Order Comment: 111 Performed By: #### L 100.0500 #### [facility] [address] [place], [address] MCH (RBC) [Entitic mass] 32.0 pg Normal 27.0-32.0 [facility] Comment on above: Order Comment: 111 Performed By: #### L 100.0500 #### [facility] [address] [place], [address] MCHC (RBC) [Mass/Vol] 33.2 g/dL Normal 32-36 [facility] Comment on above: Order Comment: 111 Performed By: #### L 100.0500 #### [facility] [address] [place], [address] MCV (RBC) [Entitic vol] 96.2 fL High 80-94 [facility] Comment on above: Order Comment: 111 Performed By: #### L 100.0500 #### [facility] [address] [place], [address] Platelet mean volume (Bld) [Entitic vol] 11.3 fL Normal 6.2-12.0 [facility] Comment on above: Order Comment: 111 Performed By: #### L 100.0500 #### [facility] [address] [place], [address] Platelets (Bld) [#/Vol] 279 10*3/uL Normal 150-450 [facility] Comment on above: Order Comment: 111 Performed By: #### L 100.0500 #### [facility] [address] [place], [address] RBC (Bld) [#/Vol] 3.19 10*6/uL Low 4.6-6.2 [facility] Comment on above: Order Comment: 111 Performed By: #### L 100.0500 #### [facility] [address] [place], [address] RDW SD 47.9 fl High 35.1-43.9 [facility] Comment on above: Order Comment: 111 Performed By: #### L 100.0500 #### [facility] [address] [place], [address] WBC (Bld) [#/Vol] 8.3 10*3/uL Normal 4.4-11.0 [facility] Comment on above: Order Comment: 111 Performed By: #### L 100.0500 #### [facility] [address] [place], [address] Hemoglobin A1con 05-28-2025 HbA1c (Bld) [Mass fraction] 10.8 % High <=5.6 [facility] Comment on above: Order Comment: 111 Result Comment: Norm al < 5.7 % Prediabetic 5.7 - 6.4 % Diabetic >or= 6.5 % Please note range changes. Performed By: #### L 100.0500 #### [facility] [address] [place], [address] Ferritinon 04-22-2025 Ferritin [Mass/Vol] 578 ng/mL High 37-417 [facility] Comment on above: Order Comment: 111 Performed By: #### L 501.9520, L501.5200, L501.9985, L503.0106, L500.4100, L506.1001, L500.4050, L100.0500 #### [facility] [address] [place], [address] Iron+Iron Binding Capacityon 04-22-2025 Iron [Mass/Vol] 67 ug/dL Normal 65-175 [facility] Comment on above: Order Comment: 111 Performed By: #### L 501.9520, L501.5200, L501.9985, L503.0106, L500.4100, L506.1001, L500.4050, L100.0500 #### [facility] [address] [place], [address] IRON SATURATION 20.0 Normal 9-55 [facility] Comment on above: Order Comment: 111 Performed By: #### L 501.9520, L501.5200, L501.9985, L503.0106, L500.4100, L506.1001, L500.4050, L100.0500 #### [facility] [address] [place], [address] TIBC 340 ug/dL Normal 250-450 [facility] Comment on above: Order Comment: 111 Performed By: #### L 501.9520, L501.5200, L501.9985, L503.0106, L500.4100, L506.1001, L500.4050, L100.0500 #### [facility] [address] [place], [address] UIBC 273 ug/dL Normal 228-428 [facility] Comment on above: Order Comment: 111 Performed By: #### L 501.9520, L501.5200, L501.9985, L503.0106, L500.4100, L506.1001, L500.4050, L100.0500 #### [facility] [address] [place], [address] PTHINon 04-22-2025 PTH 21 pg/mL Normal 11-61 [facility] Comment on above: Order Comment: 111 Performed By: #### L 501.9520, L501.5200, L501.9985, L503.0106, L500.4100, L506.1001, L500.4050, L100.0500 #### [facility] [address] [place], [address] Renal Profileon 04-22-2025 Albumin [Mass/Vol] 3.6 g/dL Normal 3.4-4.8 [facility] Comment on above: Order Comment: 111 Performed By: #### L 501.9520, L501.5200, L501.9985, L503.0106, L500.4100, L506.1001, L500.4050, L100.0500 #### [facility] [address] [place], [address] BUN/CRE 15.6 RATIO Normal 10-20 [facility] Comment on above: Order Comment: 111 Performed By: #### L 501.9520, L501.5200, L501.9985, L503.0106, L500.4100, L506.1001, L500.4050, L100.0500 #### [facility] [address] [place], [address] Calcium [Mass/Vol] 9.3 mg/dL Normal 7.6-11.0 [facility] Comment on above: Order Comment: 111 Performed By: #### L 501.9520, L501.5200, L501.9985, L503.0106, L500.4100, L506.1001, L500.4050, L100.0500 #### [facility] [address] [place], [address] Chloride [Moles/Vol] 105 mmol/L Normal 98-108 [facility] Comment on above: Order Comment: 111 Performed By: #### L 501.9520, L501.5200, L501.9985, L503.0106, L500.4100, L506.1001, L500.4050, L100.0500 #### [facility] [address] [place], [address] (130) CO2 [Moles/Vol] 22.2 mmol/L Normal 21.0-32.0 [facility] Comment on above: Order Comment: 111 Performed By: #### L 501.9520, L501.5200, L501.9985, L503.0106, L500.4100, L506.1001, L500.4050, L100.0500 #### [facility] [address] [place], [address] (557) Creatinine [Mass/Vol] 1.91 mg/dL High 0.70-1.20 [facility] Comment on above: Order Comment: 111 Performed By: #### L 501.9520, L501.5200, L501.9985, L503.0106, L500.4100, L506.1001, L500.4050, L100.0500 #### [facility] [address] [place], [address] GAP 11 Normal 5-15 [facility] Comment on above: Order Comment: 111 Performed By: #### L 501.9520, L501.5200, L501.9985, L503.0106, L500.4100, L506.1001, L500.4050, L100.0500 #### [facility] [address] [place], [address] (637) GFR/1.73 sq M.predicted among non-blacks MDRD (S/P/Bld) [Vol rate/Area] 36 mL/min/{1.73_m2} Low >60 [facility] Comment on above: Order Comment: 111 Result Comment: mL/m in/1.73m2 CKD-EPI Creatinine Equation (2020) Performed By: #### L 501.9520, L501.5200, L501.9985, L503.0106, L500.4100, L506.1001, L500.4050, L100.0500 #### [facility] [address] [place], [address] Glucose [Mass/Vol] 173 mg/dL High 70-99 [facility] Comment on above: Order Comment: 111 Performed By: #### L 501.9520, L501.5200, L501.9985, L503.0106, L500.4100, L506.1001, L500.4050, L100.0500 #### [facility] [address] [place], [address] Phosphate [Mass/Vol] 3.1 mg/dL Normal 2.7-4.5 [facility] Comment on above: Order Comment: 111 Performed By: #### L 501.9520, L501.5200, L501.9985, L503.0106, L500.4100, L506.1001, L500.4050, L100.0500 #### [facility] [address] [place], [address] Potassium [Moles/Vol] 4.6 mmol/L Normal 3.3-5.1 [facility] Comment on above: Order Comment: 111 Performed By: #### L 501.9520, L501.5200, L501.9985, L503.0106, L500.4100, L506.1001, L500.4050, L100.0500 #### [facility] [address] [place], [address] Sodium [Moles/Vol] 139 mmol/L Normal 133-145 [facility] Comment on above: Order Comment: 111 Performed By: #### L 501.9520, L501.5200, L501.9985, L503.0106, L500.4100, L506.1001, L500.4050, L100.0500 #### [facility] [address] [place], [place], [address] Urea nitrogen [Mass/Vol] 30 mg/dL High 02-15 [facility] Comment on above: Order Comment: 111 Performed By: #### L 501.9520, L501.5200, L501.9985, L503.0106, L500.4100, L506.1001, L500.4050, L100.0500 #### [facility] [address] [place], [place], [address] Orthopedic Visit Reporton Orthopedic Visit Report [facility] [address] [place] [address] [address] [place], [place] [address] OFFICE VISIT Date of Service: 04/17/25 MR#: [id number] Acct: [id number] Name: STEVO ELIZALDE Rep #: [id number] : 1950 Provider: Dr. Deshaun alcaraz MD Age/Sex: 75/M Location: [facility] Status: Signed Intake Vital Signs 04/10/25 15:18 [...] mg PO QDAY 04/17/25 04/17/25 Hi story blood-glucose,sampler tester,c ont #1 ea 04/17/25 04/17/25 History (FreeStyle Hung 3 [place]) clopidogrel 75 mg tablet 75 mg PO [...] by me, Dr. Deshaun Salcedo MD 04/17/25 2016. Part of today???s visit was documented by [...] He otherwise denies any injury." Supplemental Info [facility] [address] [place] [address] Ankle min 3 Views MR#: [id number] Acct: [id number] Name: STEVO ELIZALDE Rep #: [id number] : (more content not included)... Normal [facility] CBC-Complete Blood Cnt No Di ffon 04-16-2025 Erythrocyte distribution width (RBC) [Ratio] 13.2 % Normal 11.6-14.6 [facility] Comment on above: Order Comment: 111 Performed By: #### L 100.0500 #### [facility] [address] [place], [address] Hematocrit (Bld) [Volume fraction] 29.1 % Low 40-54 [facility] Comment on above: Order Comment: 111 Performed By: #### L 100.0500 #### [facility] [address] [place], [address] Hemoglobin (Bld) [Mass/Vol] 9.8 g/dL Low 13.0-16.5 [facility] Comment on above: Order Comment: 111 Performed By: #### L 100.0500 #### [facility] [address] [place], [address] MCH (RBC) [Entitic mass] 32.5 pg High 27.0-32.0 [facility] Comment on above: Order Comment: 111 Performed By: #### L 100.0500 #### [facility] [address] [place], [address] MCHC (RBC) [Mass/Vol] 33.7 g/dL Normal 32-36 [facility] Comment on above: Order Comment: 111 Performed By: #### L 100.0500 #### [facility] [address] [place], [address] MCV (RBC) [Entitic vol] 96.4 fL High 80-94 [facility] Comment on above: Order Comment: 111 Performed By: #### L 100.0500 #### [facility] [address] [place], [address] Platelet mean volume (Bld) [Entitic vol] 11.0 fL Normal 6.2-12.0 [facility] Comment on above: Order Comment: 111 Performed By: #### L 100.0500 #### [facility] [address] [place], [address] Platelets (Bld) [#/Vol] 302 10*3/uL Normal 150-450 [facility] Comment on above: Order Comment: 111 Performed By: #### L 100.0500 #### [facility] [address] [place], [address] RBC (Bld) [#/Vol] 3.02 10*6/uL Low 4.6-6.2 [facility] Comment on above: Order Comment: 111 Performed By: #### L 100.0500 #### [facility] [address] [place], [address] RDW SD 46.5 fl High 35.1-43.9 [facility] Comment on above: Order Comment: 111 Performed By: #### L 100.0500 #### [facility] [address] [place], [address] WBC (Bld) [#/Vol] 8.3 10*3/uL Normal 4.4-11.0 [facility] Comment on above: Order Comment: 111 Performed By: #### L 100.0500 #### [facility] [address] [place], [address] Erythrocyte distribution wid th ratioOrdered By: Manohar Pablo on 04-16-2025 Erythrocyte distribution width (RBC) [Ratio] 13.2 % 11.6-14.6 [facility] Erythrocyte distribution wid th standard deviationOrdered By: Manohar Pablo on 04-16-2025 Erythrocyte distribution width (RBC) [Ratio] 46.5 fl High 35.1-43.9 [facility] Hematocrit Auto (Bld) [Volum e fraction]Ordered By: Manohar Pablo on 04-16-2025 Hematocrit (Bld) [Volume fraction] 29.1 % Low 40-54 [facility] Hemoglobin measurementOrdere d By: Manohar Pablo on 04-16-2025 Hemoglobin (Bld) [Mass/Vol] 9.8 g/dL Low 13.0-16.5 [facility] MCV (mean corpuscular volume ) determinationOrdered By: Manohar Pablo on 04-16-2025 MCV (RBC) [Entitic vol] 96.4 fL High 80-94 [facility] Mean corpuscular hemoglobin (MCH) determinationOrdered By: Manohar Pablo on 04-16-2025 MCH (RBC) [Entitic mass] 32.5 pg High 27.0-32.0 [facility] Mean corpuscular hemoglobin concentration (MCHC) determinationOrdered By: Manohar Pablo on 04-16-2025 MCHC (RBC) [Mass/Vol] 33.7 g/dL 32-36 [facility] Mean platelet volume determi nationOrdered By: Manohar Pablo on 04-16-2025 Platelet mean volume (Bld) [Entitic vol] 11.0 fL 6.2-12.0 [facility] Platelet countOrdered By: Liane Pablo on 04-16-2025 Platelets (Bld) [#/Vol] 302 10*3/uL 150-450 [facility] RBC Auto (Bld) [#/Vol]Ordere d By: Manohar Pablo on 04-16-2025 RBC (Bld) [#/Vol] 3.02 10*6/uL Low 4.6-6.2 [facility] White blood cell (WBC) count Ordered By: Manohar Pablo on 04-16-2025 WBC (Bld) [#/Vol] 8.3 10*3/uL 4.4-11.0 [facility] Ankle min 3 Viewson 04-10-20 25 Ankle min 3 Views [facility] [address] [place], [place] [id number] (543) Ankle min 3 Views MR#: [id number] Acct: [id number] Name: TONIOSTEVO R Rep #: [id number] : 1950 M 75 From: Bib Mcdowell PCP: PHYLLIS MAE Status: REG ER Study: Ankle min 3 Views Date of Exam: 04/10/25 Exam# [id number] Ordering Dr: Rakel Landers PROCEDURE: ANKLE MIN [...] inferior calcaneal spurring is seen. Reading Location: [address] CC: PHYLLIS MAE; ALLAN Marquez Software Technician: Signed Normal [facility] Emergency Department Summary on 04-10-2025 Emergency Department Summary [facility] Medical Records Department [address] [place] [address] Emergency Department Summary 04/10/25 MR#: [id number] Acct: [id number] Name: STEVO ELIZALDE Rep #: [id number] : 1950 75 From: Rakel LEMUS PCP: [...] evaluation. He otherwise denies any injury. PFSH PFS Allergy/AdvReac Type Severity Reaction Status Date / [...] no fol (more content not included)... Normal [facility] Knee 3 Viewson 04-10-2025 Knee 3 Views [facility] Services [address] [place], [place] [address] Knee 3 Views MR#: [id number] Acct: [id number] Name: STEVO ELIZALDE Rep #: [id number] : 1950 M 75 From: Morris Pope MD PCP: PHYLLIS MAE Status: REG ER Study: Knee 3 Views Date of Exam: 04/10/25 Exam# [id number] Ordering Dr: Rakel Landers PROCEDURE: KNEE 3 [...] 3. Other findings as noted. Reading Location: [place] [address] CC: PHYLLIS MAE; ALLAN Maqruez Software Technician: Signed Normal [facility] Urinalysis, Completeon 02-24 BACTERIA 0 SEEN Normal None Seen [facility] Comment on above: Order Comment: 111 Performed By: #### L 501.9520, L501.5200, L501.9985, L503.0106, L500.4100, L506.1001, L500.4050, L100.0500 #### [facility] [address] [place], [place], [id number] EPI,SQUAMOUS 0 SEEN Normal 0-5 [facility] Comment on above: Order Comment: 111 Performed By: #### L 501.9520, L501.5200, L501.9985, L503.0106, L500.4100, L506.1001, L500.4050, L100.0500 #### [facility] [address] [place], [place], [id number] Mucus Ql (Urine sed) 0 SEEN Normal [facility] Comment on above: Order Comment: 111 Performed By: #### L 501.9520, L501.5200, L501.9985, L503.0106, L500.4100, L506.1001, L500.4050, L100.0500 #### [facility] [address] [place], [address] RBC 0 SEEN Normal 0-5 [facility] Comment on above: Order Comment: 111 Performed By: #### L 501.9520, L501.5200, L501.9985, L503.0106, L500.4100, L506.1001, L500.4050, L100.0500 #### [facility] [address] [place], [place], [address] WBC 0 SEEN Normal 0-5 [facility] Comment on above: Order Comment: 111 Performed By: #### L 501.9520, L501.5200, L501.9985, L503.0106, L500.4100, L506.1001, L500.4050, L100.0500 #### [facility] [address] [place], [place], [address] Bilirubin Test strip Ql (U)O rdered By: Sharmila Arteaga on 02-23-2025 Bilirubin Ql (U) Negative Negative [facility] Ketones Test strip Ql (U)Ord ered By: Sharmila Arteaga on 02-23-2025 Ketones Ql (U) Negative Negative [facility] Microscopic analysis of urin e for red blood cells (RBC)Ordered By: Sharmila Arteaga on 02-23-2025 Microscopic analysis of urine for red blood cells (RBC) 0 SEEN /hpf 0-5 [facility] Mucus LM Ql (Urine sed)Order ed By: Sharmila Arteaga on 02-23-2025 Mucus Ql (Urine sed) 0 SEEN /hpf [facility] Nitrite Test strip Ql (U)Ord ered By: Sharmila Arteaga on 02-23-2025 Nitrite Ql (U) Negative Negative [facility] Protein Test strip Ql (U)Ord ered By: Sharmila Arteaga on 02-23-2025 Protein Ql (U) 100 mg/dl High Negative [facility] Squamous epithelial cells de tection in urine sediment by light microscopyOrdered By: Sharmila Arteaga on 02-23-2025 Epithelial cells.squamous LM Ql (Urine sed) 0 SEEN /hpf 0-5 [facility] Urine clarityOrdered By: James Arteaga on 02-23-2025 Clarity (U) Clear Clear [facility] Urine color determinationOrd ered By: Sharmila Arteaga on 02-23-2025 Color (U) Yellow Yellow [facility] Urine glucose detectionOrder ed By: Sharmila Arteaga on 02-23-2025 Glucose Ql (U) 250 mg/dl High Normal [facility] Urine leukocyte esterase det ection by dipstickOrdered By: Sharmila Arteaga on 02-23-2025 Leukocyte esterase Test strip Ql (U) Negative Negative [facility] Urine pHOrdered By: Sharmila Morgan udla on 02-23-2025 pH (U) 6.0 [pH] 5.0 - 8.0 [facility] Urine sediment bacteria coun t by microscopy (number/high power field)Ordered By: Sharmila Arteaga on 02-23-2025 Bacteria LM.HPF (Urine sed) [#/Area] 0 /[HPF] None Seen [facility] Urine specific gravity measu rementOrdered By: Sharmila Arteaga on 02-23-2025 Specific gravity (U) [Rel density] 1.015 1.002-1.030 [facility] Urine urobilinogen measureme ntOrdered By: Sharmila Arteaga on 02-23-2025 Urobilinogen Ql (U) Normal mg/dl Normal [facility] White blood cell countOrdere d By: Sharmila Arteaga on 02-23-2025 White blood cell count 0 SEEN /hpf 0-5 [facility] Anion gap in Serum or Plasma Ordered By: Manohar Pablo on 02-19-2025 Anion gap [Moles/Vol] 11 mmol/L 5-15 [facility] BUN/creatinine ratioOrdered By: Manohar Pablo on 02-19-2025 Urea nitrogen/Creatinine [Mass ratio] 19.4 mg/mg 10-20 [facility] CBC-Complete Blood Cnt No Di ffon 02-19-2025 Erythrocyte distribution width (RBC) [Ratio] 12.7 % Normal 11.6-14.6 [facility] Comment on above: Performed By: #### L 501.9520, L501.5200, L501.9985, L503.0106, L500.4100, L506.1001, L500.4050, L100.0500 #### [facility] [address] [place], [place] [address] [place], [address] Hematocrit (Bld) [Volume fraction] 26.7 % Low 40-54 [facility] Comment on above: Performed By: #### L 501.9520, L501.5200, L501.9985, L503.0106, L500.4100, L506.1001, L500.4050, L100.0500 #### [facility] [address] [place], [address] Hemoglobin (Bld) [Mass/Vol] 9.2 g/dL Low 13.0-16.5 [facility] Comment on above: Performed By: #### L 501.9520, L501.5200, L501.9985, L503.0106, L500.4100, L506.1001, L500.4050, L100.0500 #### [facility] [address] [facility] [place], [address] MCH (RBC) [Entitic mass] 33.1 pg High 27.0-32.0 [facility] Comment on above: Performed By: #### L 501.9520, L501.5200, L501.9985, L503.0106, L500.4100, L506.1001, L500.4050, L100.0500 #### [facility] [address] [facility] [place], [address] MCHC (RBC) [Mass/Vol] 34.5 g/dL Normal 32-36 [facility] Comment on above: Performed By: #### L 501.9520, L501.5200, L501.9985, L503.0106, L500.4100, L506.1001, L500.4050, L100.0500 #### [facility] [address] [place], [address] MCV (RBC) [Entitic vol] 96.0 fL High 80-94 [facility] Comment on above: Performed By: #### L 501.9520, L501.5200, L501.9985, L503.0106, L500.4100, L506.1001, L500.4050, L100.0500 #### [facility] [address] [place], [address] Platelet mean volume (Bld) [Entitic vol] 11.7 fL Normal 6.2-12.0 [facility] Comment on above: Performed By: #### L 501.9520, L501.5200, L501.9985, L503.0106, L500.4100, L506.1001, L500.4050, L100.0500 #### [facility] [address] [place], [address] Platelets (Bld) [#/Vol] 253 10*3/uL Normal 150-450 [facility] Comment on above: Performed By: #### L 501.9520, L501.5200, L501.9985, L503.0106, L500.4100, L506.1001, L500.4050, L100.0500 #### [facility] [address] [place], [address] RBC (Bld) [#/Vol] 2.78 10*6/uL Low 4.6-6.2 [facility] Comment on above: Performed By: #### L 501.9520, L501.5200, L501.9985, L503.0106, L500.4100, L506.1001, L500.4050, L100.0500 #### [facility] [address] [place], [address] RDW SD 44.9 fl High 35.1-43.9 [facility] Comment on above: Performed By: #### L 501.9520, L501.5200, L501.9985, L503.0106, L500.4100, L506.1001, L500.4050, L100.0500 #### [facility] [address] [place], [place], [address] WBC (Bld) [#/Vol] 8.5 10*3/uL Normal 4.4-11.0 [facility] Comment on above: Performed By: #### L 501.9520, L501.5200, L501.9985, L503.0106, L500.4100, L506.1001, L500.4050, L100.0500 #### [facility] [address] [place], [place], [address] Carbon dioxide, total [Moles /volume] in Central venous bloodOrdered By: Manohar Pablo on 02-19-2025 CO2 [Moles/Vol] 19.7 mmol/L Low 21.0-32.0 [facility] Chloride assayOrdered By: Liane Pablo on 02-19-2025 Chloride [Moles/Vol] 100 mmol/L 98-108 [facility] Erythrocyte distribution wid th ratioOrdered By: Manohar Pablo on 02-19-2025 Erythrocyte distribution width (RBC) [Ratio] 12.7 % 11.6-14.6 [facility] Erythrocyte distribution wid th standard deviationOrdered By: Manohar Pablo on 02-19-2025 Erythrocyte distribution width (RBC) [Ratio] 44.9 fl High 35.1-43.9 [facility] Glomerular filtration rate ( GFR) estimation/1.73 sq m using serum, plasma, or whole bOrdered By: Manohar Pablo on 02-19-2025 GFR/1.73 sq M.predicted among non-blacks MDRD (S/P/Bld) [Vol rate/Area] 39 mL/min/{1.73_m2} Low >60 [facility] Comment on above: mL/min/1.73m2 CKD-EP I Creatinine Equation (2020) Hematocrit Auto (Bld) [Volum e fraction]Ordered By: Manohar Pablo on 02-19-2025 Hematocrit (Bld) [Volume fraction] 26.7 % Low 40-54 [facility] Hemoglobin measurementOrdere d By: Manohar Pablo on 02-19-2025 Hemoglobin (Bld) [Mass/Vol] 9.2 g/dL Low 13.0-16.5 [facility] MCV (mean corpuscular volume ) determinationOrdered By: Manohar Pablo on 02-19-2025 MCV (RBC) [Entitic vol] 96.0 fL High 80-94 [facility] Mean corpuscular hemoglobin (MCH) determinationOrdered By: Manohar Pablo on 02-19-2025 MCH (RBC) [Entitic mass] 33.1 pg High 27.0-32.0 [facility] Mean corpuscular hemoglobin concentration (MCHC) determinationOrdered By: Manohar Pablo on 02-19-2025 MCHC (RBC) [Mass/Vol] 34.5 g/dL 32-36 [facility] Mean platelet volume determi nationOrdered By: Manohar Pablo on 02-19-2025 Platelet mean volume (Bld) [Entitic vol] 11.7 fL 6.2-12.0 [facility] Platelet countOrdered By: Liane Pablo on 02-19-2025 Platelets (Bld) [#/Vol] 253 10*3/uL 150-450 [facility] Potassium measurement (mass/ volume)Ordered By: Manohar Pablo on 02-19-2025 Potassium (Unsp spec) [Mass/Vol] 4.3 mmol/L 3.3-5.1 [facility] RBC Auto (Bld) [#/Vol]Ordere d By: Manohar Pablo on 02-19-2025 RBC (Bld) [#/Vol] 2.78 10*6/uL Low 4.6-6.2 [facility] Renal Profileon 02-19-2025 Albumin [Mass/Vol] 3.1 g/dL Low 3.4-4.8 [facility] Comment on above: Performed By: #### L [id number], L501.5200, L501.9985, L503.0106, L500.4100, L506.1001, L500.4050, L100.0500 #### [facility] [address] [place], [place], [id number] BUN/CRE 19.4 RATIO Normal 10-20 [facility] Comment on above: Performed By: #### L [id number], L501.5200, L501.9985, L503.0106, L500.4100, L506.1001, L500.4050, L100.0500 #### [facility] [address] [place], [address] Calcium [Mass/Vol] 8.7 mg/dL Normal 7.6-11.0 [facility] Comment on above: Performed By: #### L [id number], L501.5200, L501.9985, L503.0106, L500.4100, L506.1001, L500.4050, L100.0500 #### [facility] [address] [place], [address] Chloride [Moles/Vol] 100 mmol/L Normal 98-108 [facility] Comment on above: Performed By: #### L [id number], L501.5200, L501.9985, L503.0106, L500.4100, L506.1001, L500.4050, L100.0500 #### [facility] [address] [place], [address] CO2 [Moles/Vol] 19.7 mmol/L Low 21.0-32.0 [facility] Comment on above: Performed By: #### L [id number], L501.5200, L501.9985, L503.0106, L500.4100, L506.1001, L500.4050, L100.0500 #### [facility] [address] [place], [address] Creatinine [Mass/Vol] 1.78 mg/dL High 0.70-1.20 [facility] Comment on above: Performed By: #### L [id number], L501.5200, L501.9985, L503.0106, L500.4100, L506.1001, L500.4050, L100.0500 #### [facility] [address] [place], [address] GAP 11 Normal 5-15 [facility] Comment on above: Performed By: #### L [id number], L501.5200, L501.9985, L503.0106, L500.4100, L506.1001, L500.4050, L100.0500 #### [facility] [address] [place], [address] GFR/1.73 sq M.predicted among non-blacks MDRD (S/P/Bld) [Vol rate/Area] 39 mL/min/{1.73_m2} Low >60 [facility] Comment on above: Result Comment: mL/m in/1.73m2 CKD-EPI Creatinine Equation (2020) Performed By: #### L 501.9520, L501.5200, L501.9985, L503.0106, L500.4100, L506.1001, L500.4050, L100.0500 #### [facility] [address] [place], [address] Glucose [Mass/Vol] 324 mg/dL High 70-99 [facility] Comment on above: Performed By: #### L [id number], L501.5200, L501.9985, L503.0106, L500.4100, L506.1001, L500.4050, L100.0500 #### [facility] [address] [place], [address] Phosphate [Mass/Vol] 3.1 mg/dL Normal 2.7-4.5 [facility] Comment on above: Performed By: #### L [id number], L501.5200, L501.9985, L503.0106, L500.4100, L506.1001, L500.4050, L100.0500 #### [facility] [address] [place], [address] Potassium [Moles/Vol] 4.3 mmol/L Normal 3.3-5.1 [facility] Comment on above: Performed By: #### L [id number], L501.5200, L501.9985, L503.0106, L500.4100, L506.1001, L500.4050, L100.0500 #### [facility] [address] [place], [place], [id number] Sodium [Moles/Vol] 131 mmol/L Low 133-145 [facility] Comment on above: Performed By: #### L 501.9520, L501.5200, L501.9985, L503.0106, L500.4100, L506.1001, L500.4050, L100.0500 #### [facility] [address] [facility] [place], [place], [id number] Urea nitrogen [Mass/Vol] 35 mg/dL High 4-19 [facility] Comment on above: Performed By: #### L 501.9520, L501.5200, L501.9985, L503.0106, L500.4100, L506.1001, L500.4050, L100.0500 #### [facility] [address], [place], [id number] Serum creatinine measurement (mass/volume)Ordered By: Manohar Pablo on 02-19-2025 Creatinine [Mass/Vol] 1.78 mg/dL High 0.70-1.20 [facility] Serum glucose measurement (m ass/volume)Ordered By: Manohar Pablo on 02-19-2025 Glucose [Mass/Vol] 324 mg/dL High 70-99 [facility] Serum or plasma albumin quynh urement (mass/volume)Ordered By: Manohar Pablo on 02-19-2025 Albumin [Mass/Vol] 3.1 g/dL Low 3.4-4.8 [facility] Serum or plasma calcium quynh urement (mass/volume)Ordered By: Manohar Pablo on 02-19-2025 Calcium [Mass/Vol] 8.7 mg/dL 7.6-11.0 [facility] Serum or plasma urea nitroge n measurement (mass/volume)Ordered By: Manohar Pablo on 02-19-2025 Urea nitrogen [Mass/Vol] 35 mg/dL High 4-19 [facility] Sodium levelOrdered By: Caity Pablo on 02-19-2025 Sodium [Moles/Vol] 131 mmol/L Low 133-145 [facility] White blood cell (WBC) count Ordered By: Manohar Pablo on 02-19-2025 WBC (Bld) [#/Vol] 8.5 10*3/uL 4.4-11.0 [facility] Anion gap in Serum or Plasma Ordered By: Sharmila Arteaga on 01-27-2025 Anion gap [Moles/Vol] 12 mmol/L 5-15 [facility] BUN/creatinine ratioOrdered By: Sharmila Arteaga on 01-27-2025 Urea nitrogen/Creatinine [Mass ratio] 18.5 mg/mg 10-20 [facility] Bilirubin, totalOrdered By: Sharmila Arteaga on 01-27-2025 Bilirubin [Mass/Vol] mg/dL 0.00-1.30 [facility] CBC-Complete Blood Cnt No Di ffon 01-27-2025 Erythrocyte distribution width (RBC) [Ratio] 13.4 % Normal 11.6-14.6 [facility] Comment on above: Order Comment: 111 Performed By: #### L 501.9520, L501.5200, L501.9985, L503.0106, L500.4100, L506.1001, L500.4050, L100.0500 #### [facility] [address] [place], [place], [id number] Hematocrit (Bld) [Volume fraction] 31.4 % Low 40-54 [facility] Comment on above: Order Comment: 111 Performed By: #### L 501.9520, L501.5200, L501.9985, L503.0106, L500.4100, L506.1001, L500.4050, L100.0500 #### [facility] [address] [place], [address] Hemoglobin (Bld) [Mass/Vol] 10.7 g/dL Low 13.0-16.5 [facility] Comment on above: Order Comment: 111 Performed By: #### L [id number], L501.5200, L501.9985, L503.0106, L500.4100, L506.1001, L500.4050, L100.0500 #### [facility] [address] [facility] [address] [place], [place], [id number] (212) MCH (RBC) [Entitic mass] 33.2 pg High 27.0-32.0 [facility] Comment on above: Order Comment: 111 Performed By: #### L 501.9520, L501.5200, L501.9985, L503.0106, L500.4100, L506.1001, L500.4050, L100.0500 #### [facility] [address] [facility] [place], [address] (028) MCHC (RBC) [Mass/Vol] 34.1 g/dL Normal 32-36 [facility] Comment on above: Order Comment: 111 Performed By: #### L 501.9520, L501.5200, L501.9985, L503.0106, L500.4100, L506.1001, L500.4050, L100.0500 #### [facility] [address] [facility] [address] [place], [place], [id number] (025) MCV (RBC) [Entitic vol] 97.5 fL High 80-94 [facility] Comment on above: Order Comment: 111 Performed By: #### L 501.9520, L501.5200, L501.9985, L503.0106, L500.4100, L506.1001, L500.4050, L100.0500 #### [facility] [address] [facility] [place], [address] (344) Platelet mean volume (Bld) [Entitic vol] 11.5 fL Normal 6.2-12.0 [facility] Comment on above: Order Comment: 111 Performed By: #### L 501.9520, L501.5200, L501.9985, L503.0106, L500.4100, L506.1001, L500.4050, L100.0500 #### [facility] [address] [place], [address] Platelets (Bld) [#/Vol] 339 10*3/uL Normal 150-450 [facility] Comment on above: Order Comment: 111 Performed By: #### L 501.9520, L501.5200, L501.9985, L503.0106, L500.4100, L506.1001, L500.4050, L100.0500 #### [facility] [address] [place], [address] RBC (Bld) [#/Vol] 3.22 10*6/uL Low 4.6-6.2 [facility] Comment on above: Order Comment: 111 Performed By: #### L 501.9520, L501.5200, L501.9985, L503.0106, L500.4100, L506.1001, L500.4050, L100.0500 #### [facility] [address] [place], [address] RDW SD 47.8 fl High 35.1-43.9 [facility] Comment on above: Order Comment: 111 Performed By: #### L [id number], L501.5200, L501.9985, L503.0106, L500.4100, L506.1001, L500.4050, L100.0500 #### [facility] [address] [place], [address] WBC (Bld) [#/Vol] 7.4 10*3/uL Normal 4.4-11.0 [facility] Comment on above: Order Comment: 111 Performed By: #### L 501.9520, L501.5200, L501.9985, L503.0106, L500.4100, L506.1001, L500.4050, L100.0500 #### [facility] [address] [place], [place], [id number] Calculated very low density lipoprotein (VLDL) cholesterol measurementOrdered By: Sharmila Arteaga on 01-27-2025 Calculated very low density lipoprotein (VLDL) cholesterol measurement 51 mg/dL High 5-40 [facility] VLDL Cholesterol 51 mg/dL High 5-40 [facility] Carbon dioxide, total [Moles /volume] in Central venous bloodOrdered By: Sharmila Arteaga on 01-27-2025 CO2 [Moles/Vol] 17.6 mmol/L Low 21.0-32.0 [facility] Chloride assayOrdered By: Boom Arteaga on 01-27-2025 Chloride [Moles/Vol] 105 mmol/L 98-108 [facility] Comprehensive Metabolic Prof ilon 01-27-2025 Albumin [Mass/Vol] 3.5 g/dL Normal 3.4-4.8 [facility] Comment on above: Order Comment: 111 Performed By: #### L 501.9520, L501.5200, L501.9985, L503.0106, L500.4100, L506.1001, L500.4050, L100.0500 #### [facility] [address] [place], [place], [id number] Albumin/Globulin [Mass ratio] 1.3 {ratio} Normal 0.9-2.4 [facility] Comment on above: Order Comment: 111 Performed By: #### L 501.9520, L501.5200, L501.9985, L503.0106, L500.4100, L506.1001, L500.4050, L100.0500 #### [facility] [address] [place], [address] ALK PHOS 44 U/L Normal 40-129 [facility] Comment on above: Order Comment: 111 Performed By: #### L 501.9520, L501.5200, L501.9985, L503.0106, L500.4100, L506.1001, L500.4050, L100.0500 #### [facility] [address] [place], [address] ALT [Catalytic activity/Vol] 17 U/L Normal <=46 [facility] Comment on above: Order Comment: 111 Performed By: #### L 501.9520, L501.5200, L501.9985, L503.0106, L500.4100, L506.1001, L500.4050, L100.0500 #### [facility] [address] [place], [address] AST [Catalytic activity/Vol] 20 U/L Normal <=37 [facility] Comment on above: Order Comment: 111 Performed By: #### L 501.9520, L501.5200, L501.9985, L503.0106, L500.4100, L506.1001, L500.4050, L100.0500 #### [facility] [address] [place], [address] BUN/CRE 18.5 RATIO Normal 10-20 [facility] Comment on above: Order Comment: 111 Performed By: #### L 501.9520, L501.5200, L501.9985, L503.0106, L500.4100, L506.1001, L500.4050, L100.0500 #### [facility] [address] [place], [address] Calcium [Mass/Vol] 9.5 mg/dL Normal 7.6-11.0 [facility] Comment on above: Order Comment: 111 Performed By: #### L 501.9520, L501.5200, L501.9985, L503.0106, L500.4100, L506.1001, L500.4050, L100.0500 #### [facility] [address] [place], [address] Chloride [Moles/Vol] 105 mmol/L Normal 98-108 [facility] Comment on above: Order Comment: 111 Performed By: #### L 501.9520, L501.5200, L501.9985, L503.0106, L500.4100, L506.1001, L500.4050, L100.0500 #### [facility] [address] [place], [address] CO2 [Moles/Vol] 17.6 mmol/L Low 21.0-32.0 [facility] Comment on above: Order Comment: 111 Performed By: #### L 501.9520, L501.5200, L501.9985, L503.0106, L500.4100, L506.1001, L500.4050, L100.0500 #### [facility] [address] [place], [address] Creatinine [Mass/Vol] 2.20 mg/dL High 0.70-1.20 [facility] Comment on above: Order Comment: 111 Performed By: #### L 501.9520, L501.5200, L501.9985, L503.0106, L500.4100, L506.1001, L500.4050, L100.0500 #### [facility] [address] [place], [address] GAP 12 Normal 5-15 [facility] Comment on above: Order Comment: 111 Performed By: #### L 501.9520, L501.5200, L501.9985, L503.0106, L500.4100, L506.1001, L500.4050, L100.0500 #### [facility] [address] [place], [address] GFR/1.73 sq M.predicted among non-blacks MDRD (S/P/Bld) [Vol rate/Area] 30 mL/min/{1.73_m2} Low >60 [facility] Comment on above: Order Comment: 111 Result Comment: mL/m in/1.73m2 CKD-EPI Creatinine Equation (2020) Performed By: #### L 501.9520, L501.5200, L501.9985, L503.0106, L500.4100, L506.1001, L500.4050, L100.0500 #### [facility] [address] [place], [place], [phone] (357) Globulin (S) [Mass/Vol] 2.7 g/dL Normal 2.2-4.2 [facility] Comment on above: Order Comment: 111 Performed By: #### L 501.9520, L501.5200, L501.9985, L503.0106, L500.4100, L506.1001, L500.4050, L100.0500 #### [facility] [address] [place], [place], [phone] (405) Glucose [Mass/Vol] 258 mg/dL High 70-99 [facility] Comment on above: Order Comment: 111 Performed By: #### L 501.9520, L501.5200, L501.9985, L503.0106, L500.4100, L506.1001, L500.4050, L100.0500 #### [facility] [address] [place], [address] Potassium [Moles/Vol] 5.1 mmol/L Normal 3.3-5.1 [facility] Comment on above: Order Comment: 111 Performed By: #### L 501.9520, L501.5200, L501.9985, L503.0106, L500.4100, L506.1001, L500.4050, L100.0500 #### [facility] [address] [place], [address] Sodium [Moles/Vol] 135 mmol/L Normal 133-145 [facility] Comment on above: Order Comment: 111 Performed By: #### L 501.9520, L501.5200, L501.9985, L503.0106, L500.4100, L506.1001, L500.4050, L100.0500 #### [facility] [address] [place], [address] T BILI < 0.15 Normal 0.00-1.30 [facility] Comment on above: Order Comment: 111 Performed By: #### L 501.9520, L501.5200, L501.9985, L503.0106, L500.4100, L506.1001, L500.4050, L100.0500 #### [facility] [address] [place], [place], [phone] (685) T PROT 6.3 g/dL Normal 5.9-8.4 [facility] Comment on above: Order Comment: 111 Performed By: #### L 501.9520, L501.5200, L501.9985, L503.0106, L500.4100, L506.1001, L500.4050, L100.0500 #### [facility] [address] [place], [place], [id number] Urea nitrogen [Mass/Vol] 41 mg/dL High 4-19 [facility] Comment on above: Order Comment: 111 Performed By: #### L 501.9520, L501.5200, L501.9985, L503.0106, L500.4100, L506.1001, L500.4050, L100.0500 #### [facility] [address] [place], [address] Erythrocyte distribution wid th (RBC) [Ratio]Ordered By: Sharmila Arteaga on 01-27-2025 Erythrocyte distribution width (RBC) [Entitic vol] 47.8 fL High 35.1-43.9 [facility] Erythrocyte distribution wid th ratioOrdered By: Sharmila Arteaga on 01-27-2025 Erythrocyte distribution width (RBC) [Ratio] 13.4 % 11.6-14.6 [facility] Erythrocyte distribution wid th standard deviationOrdered By: Sharmila Arteaga on 01-27-2025 Erythrocyte distribution width (RBC) [Ratio] 47.8 fl High 35.1-43.9 [facility] GFR/1.73 sq M.predicted roxann g non-blacks MDRD (S/P/Bld) [Vol rate/Area]Ordered By: Sharmila Arteaga on 01-27-2025 Estimated GFR (MDRD) Non-Af Amer 30 Low >60 [facility] Comment on above: mL/min/1.73m2 CKD-EP I Creatinine Equation (2020) Glomerular filtration rate ( GFR) estimation/1.73 sq m using serum, plasma, or whole bOrdered By: Sharmila Arteaga on 01-27-2025 GFR/1.73 sq M.predicted among non-blacks MDRD (S/P/Bld) [Vol rate/Area] 30 mL/min/{1.73_m2} Low >60 [facility] Comment on above: mL/min/1.73m2 CKD-EP I Creatinine Equation (2020) Hematocrit Auto (Bld) [Volum e fraction]Ordered By: Sharmila Arteaga on 01-27-2025 Hematocrit (Bld) [Volume fraction] 31.4 % Low 40-54 [facility] Hemoglobin A1con 01-27-2025 HbA1c (Bld) [Mass fraction] 7.7 % Normal <=5.6 [facility] Comment on above: Order Comment: 111 Performed By: #### L 501.9584, L501.5200, L501.9985, L503.0106, L500.4100, L506.1001, L500.4050, L100.0500 #### [facility] [place], [address] Hemoglobin A1c percentageOrd ered By: Sharmila Arteaga on 01-27-2025 HbA1c (Bld) [Mass fraction] 7.7 % >5.7 [facility] Hemoglobin measurementOrdere d By: Sharmila Arteaga on 01-27-2025 Hemoglobin (Bld) [Mass/Vol] 10.7 g/dL Low 13.0-16.5 [facility] L503.0106on 01-27-2025 Cobalamin (Vitamin B12) [Mass/Vol] 536 pg/mL Normal 180-914 [facility] Comment on above: Order Comment: 111 Performed By: #### L 501.9520, L501.5200, L501.9985, L503.0106, L500.4100, L506.1001, L500.4050, L100.0500 #### [facility] [address] [place], [place], [id number] L506.1001on 01-27-2025 Vitamin D 25-OH 14.8 ng/mL Low 30-100 [facility] Comment on above: Order Comment: 111 Result Comment: Celina min D Status Deficiency: <20 ng/mL (50nmol/L) Insufficiency: 20-30 ng/mL (50-75 nmol/L) Sufficiency: 30-100 ng/mL (75-250 nmol/L) Toxicity: >100 ng/mL (>250 nmol/L) Performed By: #### L 501.9520, L501.5200, L501.9985, L503.0106, L500.4100, L506.1001, L500.4050, L100.0500 #### [facility] [address] [place], [place], [id number] LDL calc ser/plasOrdered By: Sharmila Arteaga on 01-27-2025 Cholesterol in LDL [Mass/Vol] 37 mg/dL [facility] Comment on above: Ppuzpxewul=923-129 m g/dL & Higher Zbgt=647 mg/dL or greater LDL Cholesterol, Calculated 37 mg/dL [facility] Comment on above: Wqcipufbut=936-537 m g/dL & Higher Vmzt=834 mg/dL or greater Laboratory - Chemistry and C hemistry - challengeOrdered By: Sharmila Arteaga on 01-27-2025 AST [Catalytic activity/Vol] 20 U/L <38 [facility] Lipid Profileon 01-27-2025 CHOL:HDL 4.11 Normal [facility] Comment on above: Order Comment: 111 Performed By: #### L 501.9520, L501.5200, L501.9985, L503.0106, L500.4100, L506.1001, L500.4050, L100.0500 #### [facility] [address] [place], [address] Cholesterol [Mass/Vol] 116 mg/dL Normal <=200 [facility] Comment on above: Order Comment: 111 Result Comment: Chol esterol level, Desirable <200 mg/dL Borderline high cholesterol 200-239 mg/dL High cholesterol >=240 mg/dL Recommendations of the NCEP Adult Treatment Panel for the following risk-cutoff thresholds for the [place] population. Performed By: #### L 501.9520, L501.5200, L501.9985, L503.0106, L500.4100, L506.1001, L500.4050, L100.0500 #### [facility] [address] [place], [address] Cholesterol in HDL [Mass/Vol] 28 mg/dL Low [facility] Comment on above: Order Comment: 111 Result Comment: [place] onal Cholesterol Education Program (NCEP) guidelines: <40 mg/dL: Low HDL-cholesterol (major risk factor for CHD) >= 60 mg/dL: High HDL-cholesterol (negative risk factor for CHD) HDL-cholesterol is affected by a number of factors, e.g. smoking, exercise, hormones, sex and age. Performed By: #### L [id number], L501.5200, L501.9985, L503.0106, L500.4100, L506.1001, L500.4050, L100.0500 #### [facility] [address] [place], [address] Cholesterol in LDL [Mass/Vol] 37 mg/dL Normal [facility] Comment on above: Order Comment: 111 Result Comment: Bord gygqdp=211-133 mg/dL Higher Capb=208 mg/dL or greater Performed By: #### L 501.9520, L501.5200, L501.9985, L503.0106, L500.4100, L506.1001, L500.4050, L100.0500 #### [facility] [address] [place], [address] Cholesterol in VLDL [Mass/Vol] 51 mg/dL High 5-40 [facility] Comment on above: Order Comment: 111 Performed By: #### L 501.9520, L501.5200, L501.9985, L503.0106, L500.4100, L506.1001, L500.4050, L100.0500 #### [facility] [address] [place], [address] Triglyceride [Mass/Vol] 255 mg/dL High [facility] Comment on above: Order Comment: 111 Result Comment: The drugs N-Acetylcysteine and Metamizole may falsely depress this assay. Normal range: <150 mg/dL Borderline High: 150-199 mg/dL High: 200-499 mg/dL Very High: >500 mg/dL Performed By: #### L 501.9520, L501.5200, L501.9985, L503.0106, L500.4100, L506.1001, L500.4050, L100.0500 #### [facility] [address] [place], [address] MCV (mean corpuscular volume ) determinationOrdered By: Sharmila Arteaga on 01-27-2025 MCV (RBC) [Entitic vol] 97.5 fL High 80-94 [facility] Magnesiumon 01-27-2025 Magnesium [Mass/Vol] 1.7 mg/dL Normal 1.5-2.2 [facility] Comment on above: Order Comment: 111 Performed By: #### L [id number], L501.5200, L501.9985, L503.0106, L500.4100, L506.1001, L500.4050, L100.0500 #### [facility] [address] [place], [address] Magnesium (Unsp spec) [Mass/ Vol]Ordered By: Sharmila Arteaga on 01-27-2025 Magnesium [Mass/Vol] 1.7 mg/dL 1.5-2.2 [facility] Magnesium measurement (mass/ volume)Ordered By: Sharmila Arteaga on 01-27-2025 Magnesium (Unsp spec) [Mass/Vol] 1.7 mg/dL 1.5-2.2 [facility] Mean corpuscular hemoglobin (MCH) determinationOrdered By: Sharmila Arteaga on 01-27-2025 MCH (RBC) [Entitic mass] 33.2 pg High 27.0-32.0 [facility] Mean corpuscular hemoglobin concentration (MCHC) determinationOrdered By: Sharmila Arteaga on 01-27-2025 MCHC (RBC) [Mass/Vol] 34.1 g/dL 32-36 [facility] Mean platelet volume determi nationOrdered By: Sharmila Arteaga on 01-27-2025 Platelet mean volume (Bld) [Entitic vol] 11.5 fL 6.2-12.0 [facility] Platelet countOrdered By: Boom Arteaga on 01-27-2025 Platelets (Bld) [#/Vol] 339 10*3/uL 150-450 [facility] Potassium (Unsp spec) [Mass/ Vol]Ordered By: Sharmila Arteaga on 01-27-2025 Potassium [Moles/Vol] 5.1 mmol/L 3.3-5.1 [facility] Potassium measurement (mass/ volume)Ordered By: Sharmila Arteaga on 01-27-2025 Potassium (Unsp spec) [Mass/Vol] 5.1 mmol/L 3.3-5.1 [facility] RBC Auto (Bld) [#/Vol]Ordere d By: Sharmila Arteaga on 01-27-2025 RBC (Bld) [#/Vol] 3.22 10*6/uL Low 4.6-6.2 [facility] Screening total cholesterol/ high density lipoprotein (HDL) cholesterol ratioOrdered By: Sharmila Arteaga on 01-27-2025 Cholesterol.total/Caren sterol in HDL [Mass ratio] 4.11 {ratio} [facility] Serum creatinine measurement (mass/volume)Ordered By: Sharmila Arteaga on 01-27-2025 Creatinine [Mass/Vol] 2.20 mg/dL High 0.70-1.20 [facility] Serum globulin measurementOr dered By: Sharmila Arteaga on 01-27-2025 Globulin (S) [Mass/Vol] 2.7 g/dL 2.2-4.2 [facility] Serum glucose measurement (m ass/volume)Ordered By: Sharmila Arteaga on 01-27-2025 Glucose [Mass/Vol] 258 mg/dL High 70-99 [facility] Serum or plasma alanine hutson otransferase (ALT) measurementOrdered By: Sharmila Arteaga on 01-27-2025 ALT [Catalytic activity/Vol] 17 U/L <47 [facility] Serum or plasma albumin quynh urement (mass/volume)Ordered By: Sharmila Arteaga on 01-27-2025 Albumin [Mass/Vol] 3.5 g/dL 3.4-4.8 [facility] Serum or plasma albumin/glob ulin mass ratioOrdered By: Sharmila Arteaga on 01-27-2025 Albumin/Globulin [Mass ratio] 1.3 {ratio} 0.9-2.4 [facility] Serum or plasma alkaline charito sphatase measurementOrdered By: Sharmila Arteaga on 01-27-2025 ALP [Catalytic activity/Vol] 44 U/L 40-129 [facility] Serum or plasma calcium quynh urement (mass/volume)Ordered By: Sharmila Arteaga on 01-27-2025 Calcium [Mass/Vol] 9.5 mg/dL 7.6-11.0 [facility] Serum or plasma cholesterol in HDL measurement (mass/volume)Ordered By: Sharmila Arteaga on 01-27-2025 Cholesterol in HDL [Mass/Vol] 28 mg/dL Low >40 [facility] Comment on above: National Cholesterol Education Program (NCEP) guidelines:<40 mg/dL: Low HDL-cholesterol (major risk factor for CHD)>= 60 mg/dL: High HDL-cholesterol (negative risk factor for CHD)HDL-cholesterol is affected by a number of factors, e.g. smoking, exercise, hormones, sex and age. Serum or plasma cholesterol measurement (mass/volume)Ordered By: Sharmila Arteaga on 01-27-2025 Cholesterol [Mass/Vol] 116 mg/dL <201 [facility] Comment on above: Cholesterol level, D esirable <200 mg/dLBorderline high cholesterol 200-239 mg/dLHigh cholesterol >=240 mg/dLRecommendations of the NCEP Adult Treatment Panel for the following risk-cutoff thresholds for the [place] population. Serum or plasma urea nitroge n measurement (mass/volume)Ordered By: Sharmila Arteaga on 01-27-2025 Urea nitrogen [Mass/Vol] 41 mg/dL High 4-19 [facility] Sodium levelOrdered By: Angel Arteaga on 01-27-2025 Sodium [Moles/Vol] 135 mmol/L 133-145 [facility] TSH DL <= 0.005 mIU/L QnOrde red By: Sharmila Arteaga on 01-27-2025 Thyroid Stimulating Hormone (TSH) 3.110 uIU/mL 0.300-4.200 [facility] TSH Qn 3.110 uIU/mL 0.300-4.200 [facility] Thyroid Stim Hormone (TSH)on 01-27-2025 TSH 3.110 uIU/mL Normal 0.300-4.200 [facility] Comment on above: Order Comment: 111 Performed By: #### L [id number], L501.5200, L501.9985, L503.0106, L500.4100, L506.1001, L500.4050, L100.0500 #### [facility] [address] [place], [address] Total proteinOrdered By: James Arteaga on 01-27-2025 Protein [Mass/Vol] 6.3 g/dL 5.9-8.4 [facility] Triglycerides measurementOrd ered By: Sharmila Arteaga on 01-27-2025 Triglyceride [Mass/Vol] 255 mg/dL High <199 [facility] Comment on above: The drugs N-Acetylcy steine and Metamizole may falsely depress this assay. Normal range: <150 mg/dLBorderline High: 150-199 mg/dLHigh: 200-499 mg/dLVery High: >500 mg/dL Vitamin B12 ser/plasOrdered By: Sharmila Arteaga on 01-27-2025 Cobalamin (Vitamin B12) [Mass/Vol] 536 pg/mL 180-914 [facility] Vitamin D, 25-hydroxyOrdered By: Sharmila Arteaga on 01-27-2025 Vitamin D 25-Hydroxy 14.8 ng/mL Low 30-100 [facility] Comment on above: Vitamin D StatusDefi ciency: <20 ng/mL (50nmol/L)Insufficiency: 20-30 ng/mL (50-75 nmol/L)Sufficiency: 30-100 ng/mL (75-250 nmol/L)Toxicity: >100 ng/mL (>250 nmol/L) White blood cell (WBC) count Ordered By: Sharmila Arteaga on 01-27-2025 WBC (Bld) [#/Vol] 7.4 10*3/uL 4.4-11.0 [facility] Renal Profileon 12-25-2024 Calcium [Mass/Vol] 10.0 mg/dL Normal 7.6-11.0 [facility] Comment on above: Performed By: #### L 100.0500 #### [facility] [address] [place], [address] Chloride [Moles/Vol] 103 mmol/L Normal 98-107 [facility] Comment on above: Performed By: #### L 100.0500 #### [facility] [address] [place], [address] CO2 [Moles/Vol] 20.2 mmol/L Low 21.0-32.0 [facility] Comment on above: Performed By: #### L 100.0500 #### [facility] [address] [place], [address] Potassium [Moles/Vol] 4.8 mmol/L Normal 3.5-5.1 [facility] Comment on above: Performed By: #### L 100.0500 #### [facility] [address] [place], [address] Sodium [Moles/Vol] 140 mmol/L Normal 136-145 [facility] Comment on above: Performed By: #### L 100.0500 #### [facility] [address] [place], [place], [id number] BUN/creatinine ratioon 12-24 Urea nitrogen/Creatinine [Mass ratio] 17.5 mg/mg 10-20 [facility] Creatinine Unsp time (U) [Ma ss/Vol]on 12-24-2024 Creatinine (U) [Mass/Vol] 90.10 mg/dL NO RANGE EST. [facility] Creatinine [Moles/Vol]on Creatinine [Mass/Vol] 2.0 mg/dL High 0.8-1.3 [facility] GFR/1.73 sq M.predicted roxann g non-blacks MDRD (S/P/Bld) [Vol rate/Area]on 12-24-2024 Estimated GFR (MDRD) Non-Af Amer 35 Low >60 [facility] Comment on above: mL/min/1.73m2 CKD-EP I Creatinine Equation (2020) Glomerular filtration rate ( GFR) estimation/1.73 sq m using serum, plasma, or whole bon 12-24-2024 GFR/1.73 sq M.predicted among non-blacks MDRD (S/P/Bld) [Vol rate/Area] 35 mL/min/{1.73_m2} Low >60 [facility] Comment on above: mL/min/1.73m2 CKD-EP I Creatinine Equation (2020) Potassium measurementon 12-01 Potassium [Moles/Vol] 4.8 mmol/L 3.5-5.1 [facility] Protein+Creatinine Ratio,Uri neon 12-24-2024 PROT:CRE RATIO 383 mg/g CRE High 0-200 [facility] Comment on above: Performed By: #### L 100.0500 #### [facility] [address] [place], [address] Protein (U) [Mass/Vol] 35 mg/dL Normal <=12 [facility] Comment on above: Performed By: #### L 100.0500 #### [facility] [address] [place], [address] UR CREAT 90.10 mg/dL Normal NO RANGE EST. [facility] Comment on above: Performed By: #### L 100.0500 #### [facility] [address] [place], [address] Protein/Creatinine (U) [Mass ratio]on 12-24-2024 Urine Protein/Creatinine Ratio 383 mg/g CRE High 0-200 [facility] Random urine creatinine quynh urement (mass/volume)on 12-24-2024 Creatinine Unsp time (U) [Mass/Vol] 90.10 mg/dL NO RANGE EST. [facility] Serum glucose measurement (m ass/volume)on 12-24-2024 Glucose [Mass/Vol] 158 mg/dL High 70-99 [facility] Serum or plasma albumin quynh urement (mass/volume)on 12-24-2024 Albumin [Mass/Vol] 4.0 g/dL 3.4-4.8 [facility] Serum or plasma calcium quynh urement (mass/volume)on 12-24-2024 Calcium [Mass/Vol] 10.0 mg/dL 7.6-11.0 [facility] Serum or plasma carbon dioxi de measurement (moles/volume)on 12-24-2024 CO2 [Moles/Vol] 20.2 mmol/L Low 21.0-32.0 [facility] Serum or plasma chloride oanh surement (moles/volume)on 12-24-2024 Chloride [Moles/Vol] 103 mmol/L 98-107 [facility] Serum or plasma creatinine m easurement (moles/volume)on 12-24-2024 Creatinine [Moles/Vol] 2.0 mg/dL High 0.8-1.3 [facility] Serum or plasma urea nitroge n measurement (mass/volume)on 12-24-2024 Urea nitrogen [Mass/Vol] 35 mg/dL High 4-19 [facility] Serum phosphorus measurement on 12-24-2024 Phosphorus Level 3.3 mg/dL 2.7-4.5 [facility] Sodium levelon 12-24-2024 Sodium [Moles/Vol] 140 mmol/L 136-145 [facility] Urine protein measurement (m ass/volume)on 12-24-2024 Protein (U) [Mass/Vol] 35 mg/dL <=12 [facility] Urine protein/creatinine mas s ratioon 12-24-2024 Protein/Creatinine (U) [Mass ratio] 383 mg/g CRE High 0-200 [facility] Methylmalonic Acid [place] METHYLMAL ACID 295 nmol/L Normal 0-378 [facility] Comment on above: Order Comment: 111 Result Comment: Perf ormed at: [facility] [address] [id number] Real Estate Administrator: Dilcia Sloan MD, Phone: [phone] Performed By: #### L 501.3459, L501.5200, L501.9985, L503.0106, L500.4100, L506.1001, L500.4050, L100.0500 #### [facility] [address] [place], [address] Zinc, WHOLE BLOODon 12-05-19 Zinc Whole Bld 632 ug/dL Normal 440-860 [facility] Comment on above: Order Comment: 111 Result Comment: Perf ormed at: [facility] [address] [id number] Real Estate Administrator: Dilcia Sloan MD, Phone: [phone] Performed By: #### L [id number], L501.5200, L501.9985, L503.0106, L500.4100, L506.1001, L500.4050, L100.0500 #### [facility] [address] [place], [place], [id number] 12-04-2024 [facility] Misc. COMMENT Normal . [facility] Comment on above: Order Comment: 111 Result Comment: Test Ordered: [id number] Hemoglobin A1c Hemoglobin A1c 7.1 [H ] % Reference Range: 4.8-5.6 Prediabetes: 5.7 - 6.4 Diabetes: >6.4 Glycemic control for adults with diabetes: <7.0 Performed at: - [address] [id number] Real Estate Administrator: Greg Preciado PhD, Phone: [phone] Performed By: #### L [id number], L501.5200, L501.9985, L503.0106, L500.4100, L506.1001, L500.4050, L100.0500 #### [facility] [address] [place], [place], [id number] Absolute neutrophil countOrd ered By: PHYLLIS MAE on 12-02-2024 Neutrophils (Bld) [#/Vol] 3.9 10*3/uL 2.0-7.7 [facility] Albumin to globulin ratioOrd ered By: PHYLLIS MAE on 12-02-2024 Albumin/Globulin [Mass ratio] 0.9 {ratio} 0.9-2.4 [facility] Basophil percentageOrdered B y: PHYLLIS MAE on 12-02-2024 Basophils/100 WBC (Bld) 0.7 % 0-1 [facility] Bilirubin, totalOrdered By: PHYLLIS MAE on 12-02-2024 Bilirubin [Mass/Vol] 0.40 mg/dL 0.20-1.00 [facility] Comment on above: For patients on eltr ombopag therapy, use of Dimension [place] TBIL is not recommended. Blood urea nitrogen (BUN)/cr eatinine ratioOrdered By: PHYLLIS MAE on 12-02-2024 Urea nitrogen/Creatinine [Mass ratio] 13.0 mg/mg 10-20 [facility] CBC W/Diff, Automatedon Absolute Lymph 2.44 X10 3/uL Normal 0.83-4.51 [facility] Comment on above: Performed By: #### L [id number], L501.5200, L501.9985, L503.0106, L500.4100, L506.1001, L500.4050, L100.0500 #### [facility] [address] [place], [address] Absolute Neut 3.9 X10 3/uL Normal 2.0-7.7 [facility] Comment on above: Performed By: #### L [id number], L501.5200, L501.9985, L503.0106, L500.4100, L506.1001, L500.4050, L100.0500 #### [facility] [address] [place], [address] Basophils/100 WBC (Bld) 0.7 % Normal 0-1 [facility] Comment on above: Performed By: #### L 501.9520, L501.5200, L501.9985, L503.0106, L500.4100, L506.1001, L500.4050, L100.0500 #### [facility] [address] [place], [address] Eosinophils/100 WBC (Bld) 4.1 % Normal 0-5 [facility] Comment on above: Performed By: #### L [id number], L501.5200, L501.9985, L503.0106, L500.4100, L506.1001, L500.4050, L100.0500 #### [facility] [address] [place], [address] Erythrocyte distribution width (RBC) [Ratio] 13.0 % Normal 11.6-14.6 [facility] Comment on above: Performed By: #### L 501.9520, L501.5200, L501.9985, L503.0106, L500.4100, L506.1001, L500.4050, L100.0500 #### [facility] [address] [place], [address] Hematocrit (Bld) [Volume fraction] 35.9 % Low 40-54 [facility] Comment on above: Performed By: #### L 501.9520, L501.5200, L501.9985, L503.0106, L500.4100, L506.1001, L500.4050, L100.0500 #### [facility] [address] [place], [address] ( Hemoglobin (Bld) [Mass/Vol] 12.0 g/dL Low 13.0-16.5 [facility] Comment on above: Performed By: #### L 501.9520, L501.5200, L501.9985, L503.0106, L500.4100, L506.1001, L500.4050, L100.0500 #### [facility] [address] [place], [address] IG% 0.600 Normal 0.0-0.9 [facility] Comment on above: Result Comment: IG% - Immature Granulocytes (promyelocytes, myelocytes and metamyelocytes) > 1% indicates that a LEFT SHIFT is Present. Performed By: #### L 501.9520, L501.5200, L501.9985, L503.0106, L500.4100, L506.1001, L500.4050, L100.0500 #### [facility] [address] [place], [address] Lymphocytes/100 WBC (Bld) 33.7 % Normal 19-41 [facility] Comment on above: Performed By: #### L 501.9520, L501.5200, L501.9985, L503.0106, L500.4100, L506.1001, L500.4050, L100.0500 #### [facility] [address] [place], [address] MCH (RBC) [Entitic mass] 33.3 pg High 27.0-32.0 [facility] Comment on above: Performed By: #### L 501.9520, L501.5200, L501.9985, L503.0106, L500.4100, L506.1001, L500.4050, L100.0500 #### [facility] [address] [place], [address] MCHC (RBC) [Mass/Vol] 33.4 g/dL Normal 32-36 [facility] Comment on above: Performed By: #### L 501.9520, L501.5200, L501.9985, L503.0106, L500.4100, L506.1001, L500.4050, L100.0500 #### [facility] [address] [place], [address] MCV (RBC) [Entitic vol] 99.7 fL High 80-94 [facility] Comment on above: Performed By: #### L 501.9520, L501.5200, L501.9985, L503.0106, L500.4100, L506.1001, L500.4050, L100.0500 #### [facility] [address] [place], [address] Monocytes/100 WBC (Bld) 7.6 % Normal 0-10 [facility] Comment on above: Performed By: #### L 501.9520, L501.5200, L501.9985, L503.0106, L500.4100, L506.1001, L500.4050, L100.0500 #### [facility] [address] [place], [address] Neutrophils/100 WBC (Bld) 53.3 % Normal 47-70 [facility] Comment on above: Performed By: #### L 501.9520, L501.5200, L501.9985, L503.0106, L500.4100, L506.1001, L500.4050, L100.0500 #### [facility] [address] [place], [address] Nucleated RBC (Bld) [#/Vol] 0 10*3/uL Normal 0-5 [facility] Comment on above: Performed By: #### L 501.9520, L501.5200, L501.9985, L503.0106, L500.4100, L506.1001, L500.4050, L100.0500 #### [facility] [address] [place], [address] Platelet mean volume (Bld) [Entitic vol] 11.4 fL Normal 6.2-12.0 [facility] Comment on above: Performed By: #### L 501.9520, L501.5200, L501.9985, L503.0106, L500.4100, L506.1001, L500.4050, L100.0500 #### [facility] [address] [place], [address] Platelets (Bld) [#/Vol] 277 10*3/uL Normal 150-450 [facility] Comment on above: Performed By: #### L 501.9520, L501.5200, L501.9985, L503.0106, L500.4100, L506.1001, L500.4050, L100.0500 #### [facility] [address] [place], [address] RBC (Bld) [#/Vol] 3.60 10*6/uL Low 4.6-6.2 [facility] Comment on above: Performed By: #### L 501.9520, L501.5200, L501.9985, L503.0106, L500.4100, L506.1001, L500.4050, L100.0500 #### [facility] [address] [place], [address] RDW SD 47.8 fl High 35.1-43.9 [facility] Comment on above: Performed By: #### L 501.9520, L501.5200, L501.9985, L503.0106, L500.4100, L506.1001, L500.4050, L100.0500 #### [facility] [address] [place], [address] WBC (Bld) [#/Vol] 7.3 10*3/uL Normal 4.4-11.0 [facility] Comment on above: Performed By: #### L 501.9520, L501.5200, L501.9985, L503.0106, L500.4100, L506.1001, L500.4050, L100.0500 #### [facility] [address] [place], [place], [phone] ([phone] Carbon dioxide measurementOr dered By: PHYLLIS MAE on 12-02-2024 CO2 [Moles/Vol] 25.0 mmol/L 21.0-32.0 [facility] Chloride measurementOrdered By: PHYLLIS MAE on 12-02-2024 Chloride [Moles/Vol] 107 mmol/L 98-107 [facility] Comprehensive Metabolic Prof ilon 12-02-2024 Albumin [Mass/Vol] 3.6 g/dL Normal 3.2-5.0 [facility] Comment on above: Performed By: #### L 501.9520, L501.5200, L501.9985, L503.0106, L500.4100, L506.1001, L500.4050, L100.0500 #### [facility] [address] [place], [address] Albumin/Globulin [Mass ratio] 0.9 {ratio} Normal 0.9-2.4 [facility] Comment on above: Performed By: #### L 501.9520, L501.5200, L501.9985, L503.0106, L500.4100, L506.1001, L500.4050, L100.0500 #### [facility] [address] [place], [address] ALK P 42 U/L Low 45-117 [facility] Comment on above: Performed By: #### L 501.9520, L501.5200, L501.9985, L503.0106, L500.4100, L506.1001, L500.4050, L100.0500 #### [facility] [address] [place], [address] ALT [Catalytic activity/Vol] 31 U/L Normal 16-61 [facility] Comment on above: Performed By: #### L 501.9520, L501.5200, L501.9985, L503.0106, L500.4100, L506.1001, L500.4050, L100.0500 #### [facility] [address] [place], [address] AST [Catalytic activity/Vol] 33 U/L Normal 15-37 [facility] Comment on above: Performed By: #### L 501.9520, L501.5200, L501.9985, L503.0106, L500.4100, L506.1001, L500.4050, L100.0500 #### [facility] [address] [place], [address] Bilirubin [Mass/Vol] 0.40 mg/dL Normal 0.20-1.00 [facility] Comment on above: Result Comment: For patients on eltrombopag therapy, use of Dimension [place] TBIL is not recommended. Performed By: #### L 501.9520, L501.5200, L501.9985, L503.0106, L500.4100, L506.1001, L500.4050, L100.0500 #### [facility] [address] [place], [address] BUN/CRE 13.0 RATIO Normal 10-20 [facility] Comment on above: Performed By: #### L 501.9520, L501.5200, L501.9985, L503.0106, L500.4100, L506.1001, L500.4050, L100.0500 #### [facility] [address] [place], [address] CA,Total 9.4 mg/dL Normal 8.5-10.1 [facility] Comment on above: Performed By: #### L 501.9520, L501.5200, L501.9985, L503.0106, L500.4100, L506.1001, L500.4050, L100.0500 #### [facility] [address] [place], [address] Chloride [Moles/Vol] 107 mmol/L Normal 98-107 [facility] Comment on above: Performed By: #### L 501.9520, L501.5200, L501.9985, L503.0106, L500.4100, L506.1001, L500.4050, L100.0500 #### [facility] [address] [place], [address] CO2 [Moles/Vol] 25.0 mmol/L Normal 21.0-32.0 [facility] Comment on above: Performed By: #### L 501.9520, L501.5200, L501.9985, L503.0106, L500.4100, L506.1001, L500.4050, L100.0500 #### [facility] [address] [place] [place], [address] Creatinine [Mass/Vol] 1.85 mg/dL High 0.70-1.30 [facility] Comment on above: Result Comment: The validity of the calculated GFR GFRAA in patients over 70 years has not been determined. Clinical correlation is essential. Performed By: #### L 501.9520, L501.5200, L501.9985, L503.0106, L500.4100, L506.1001, L500.4050, L100.0500 #### [facility] [address] [place], [place], [id number] (089 EST GFR - AA 46 mL/min Low >60 [facility] Comment on above: Result Comment: Afri can Brazilian GFR Calc Performed By: #### L 501.9520, L501.5200, L501.9985, L503.0106, L500.4100, L506.1001, L500.4050, L100.0500 #### [facility] [address] [place], [place], [phone] (389) GAP 7 Normal 5-15 [facility] Comment on above: Performed By: #### L 501.9520, L501.5200, L501.9985, L503.0106, L500.4100, L506.1001, L500.4050, L100.0500 #### [facility] [address] [place], [address] GFR/1.73 sq M.predicted among non-blacks MDRD (S/P/Bld) [Vol rate/Area] 38 mL/min/{1.73_m2} Low >60 [facility] Comment on above: Result Comment: Non- GFR Calc Performed By: #### L 501.9520, L501.5200, L501.9985, L503.0106, L500.4100, L506.1001, L500.4050, L100.0500 #### [facility] [address] [place] [place], [address] Globulin (S) [Mass/Vol] 3.8 g/dL Normal 2.2-4.2 [facility] Comment on above: Performed By: #### L 501.9520, L501.5200, L501.9985, L503.0106, L500.4100, L506.1001, L500.4050, L100.0500 #### [facility] [address] [place], [address] Glucose [Mass/Vol] 156 mg/dL High 74-106 [facility] Comment on above: Result Comment: Fast ing Glucose result greater than or equal to 126 mg/dL suggests DIABETES MELLITUS per A.D.A. criteria. Performed By: #### L 501.9520, L501.5200, L501.9985, L503.0106, L500.4100, L506.1001, L500.4050, L100.0500 #### [facility] [address] [place] [place], [address] Potassium [Moles/Vol] 4.8 mmol/L Normal 3.5-5.1 [facility] Comment on above: Performed By: #### L 501.9520, L501.5200, L501.9985, L503.0106, L500.4100, L506.1001, L500.4050, L100.0500 #### [facility] [address] [place], [address] Sodium [Moles/Vol] 139 mmol/L Normal 136-145 [facility] Comment on above: Performed By: #### L 501.9520, L501.5200, L501.9985, L503.0106, L500.4100, L506.1001, L500.4050, L100.0500 #### [facility] [address] [place], [place], [id number] T PROT 7.4 g/dL Normal 6.4-8.2 [facility] Comment on above: Performed By: #### L 501.9520, L501.5200, L501.9985, L503.0106, L500.4100, L506.1001, L500.4050, L100.0500 #### [facility] [address] [place] [place], [address] Urea nitrogen [Mass/Vol] 24 mg/dL High 7-18 [facility] Comment on above: Performed By: #### L 501.9520, L501.5200, L501.9985, L503.0106, L500.4100, L506.1001, L500.4050, L100.0500 #### [facility] [address] [place], [place], [id number] Direct serum free thyroxine (FT4) measurementOrdered By: PHYLLIS MAE on 12-02-2024 Free T4 [Mass/Vol] 0.94 ng/dL 0.76-1.46 [facility] Eosinophil percentageOrdered By: PHYLLIS MAE on 12-02-2024 Eosinophils/100 WBC (Bld) 4.1 % 0-5 [facility] Erythrocyte distribution wid th ratioOrdered By: PHYLLIS MAE on 12-02-2024 Erythrocyte distribution width (RBC) [Ratio] 13.0 % 11.6-14.6 [facility] Erythrocyte distribution wid th standard deviationOrdered By: PHYLLIS MAE on 12-02-2024 Erythrocyte distribution width (RBC) [Entitic vol] 47.8 fL High 35.1-43.9 [facility] Estimated glomerular filtrat ion rate (GFR) AmericanOrdered By: PHYLLIS MAE on 12-02-2024 Estimated GFR (MDRD) Amer 46 mL/min Low >60 [facility] Comment on above: GFR Calc Ferritinon 12-02-2024 Ferritin [Mass/Vol] 190 ng/mL Normal 26-388 [facility] Comment on above: Performed By: #### L 501.9520, L501.5200, L501.9985, L503.0106, L500.4100, L506.1001, L500.4050, L100.0500 #### [facility] [address] [place], [place], [id number] Ferritin measurementOrdered By: PHYLLIS MAE on 12-02-2024 Ferritin [Mass/Vol] 190 ng/mL 26-388 [facility] Folates, (Folic Acid)on FOLATES 72.50 ng/mL High 3.1-55.4 [facility] Comment on above: Order Comment: 111 Performed By: #### L [id number], L501.5200, L501.9985, L503.0106, L500.4100, L506.1001, L500.4050, L100.0500 #### [facility] [address] [place], [place], [id number] Folic acid measurementOrdere d By: PHYLLIS MAE on 12-02-2024 Folate 72.50 ng/mL High 3.1-55.4 [facility] Glomerular filtration rate ( GFR) estimationOrdered By: PHYLLIS MAE on 12-02-2024 Estimated GFR (MDRD) Non-Af Amer 38 mL/min Low >60 [facility] Comment on above: Non- GFR Calc Glucose measurementOrdered B y: PHYLLIS MAE on 12-02-2024 Glucose [Mass/Vol] 156 mg/dL High 74-106 [facility] - [place] Comment on above: Fasting Glucose resu lt greater than or equal to 126 mg/dL suggests DIABETES MELLITUS per A.D.A. criteria. Hematocrit Auto (Bld) [Volum e fraction]Ordered By: PHYLLIS MAE on 12-02-2024 Hematocrit (Bld) [Volume fraction] 35.9 % Low 40-54 [facility] Hemoglobin measurementOrdere d By: PHYLLIS MAE on 12-02-2024 Hemoglobin (Bld) [Mass/Vol] 12.0 g/dL Low 13.0-16.5 [facility] Immature granulocytes/100 WB C Auto (Bld)Ordered By: PHYLLIS MAE on 12-02-2024 Immature granulocytes/100 WBC (Bld) 0.600 % 0.0-0.9 [facility] Comment on above: IG% - Immature Granu locytes (promyelocytes, myelocytes and metamyelocytes) > 1% indicates that a LEFT SHIFT is Present. Ironon 12-02-2024 Iron [Mass/Vol] 97 ug/dL Normal 65-175 [facility] Comment on above: Performed By: #### L 501.9520, L501.5200, L501.9985, L503.0106, L500.4100, L506.1001, L500.4050, L100.0500 #### [facility] [address] [place], [place], [id number] Iron (Unsp spec) [Mass/Mass] Ordered By: PHYLLISMAX MAE on 12-02-2024 Iron [Mass/Vol] 97 ug/dL 65-175 [facility] Iron Binding Capacity,Totalo n 12-02-2024 TIBC 377 ug/dL Normal 250-450 [facility] Comment on above: Performed By: #### L 501.9520, L501.5200, L501.9985, L503.0106, L500.4100, L506.1001, L500.4050, L100.0500 #### [facility] [address] [place], [place], [id number] Laboratory - Chemistry and C hemistry - challengeOrdered By: PHYLLIS MAE on 12-02-2024 AST [Catalytic activity/Vol] 33 U/L 15-37 [facility] Lymphocytes Auto (Unsp spec) [#/Vol]Ordered By: PHYLLIS MAE on 12-02-2024 Lymphocytes (Bld) [#/Vol] 2.44 10*3/uL 0.83-4.51 [facility] Lymphocytes/100 WBC Auto (Un sp spec)Ordered By: PHYLLIS MAE on 12-02-2024 Lymphocytes/100 WBC (Bld) 33.7 % 19-41 [facility] MCV (mean corpuscular volume ) determinationOrdered By: PHYLLIS MAE on 12-02-2024 MCV (RBC) [Entitic vol] 99.7 fL High 80-94 [facility] Magnesiumon 12-02-2024 Magnesium [Mass/Vol] 2.1 mg/dL Normal 1.6-2.6 [facility] Comment on above: Performed By: #### L 501.9520, L501.5200, L501.9985, L503.0106, L500.4100, L506.1001, L500.4050, L100.0500 #### [facility] [address] [facility] [place], [address] Magnesium measurementOrdered By: PHYLLIS MAE on 12-02-2024 Magnesium [Mass/Vol] 2.1 mg/dL 1.6-2.6 [facility] Mean corpuscular hemoglobin (MCH) determinationOrdered By: PHYLLIS MAE on 12-02-2024 MCH (RBC) [Entitic mass] 33.3 pg High 27.0-32.0 [facility] Mean corpuscular hemoglobin concentration (MCHC) determinationOrdered By: PHYLLIS MAE on 12-02-2024 MCHC (RBC) [Mass/Vol] 33.4 g/dL 32-36 [facility] Mean platelet volume determi nationOrdered By: PHYLLIS MAE on 12-02-2024 Platelet mean volume (Bld) [Entitic vol] 11.4 fL 6.2-12.0 [facility] Methylmalonate [Moles/Vol]Or dered By: PHYLLIS MAE on 12-02-2024 Methylmalonic Acid 295 nmol/L 0-378 [facility] [place] Comment on above: Performed at: [facility] Henrique latham [address] [id number] Director: Dilcia Sloan MD, Phone: [phone] Microalb:Creat Ratio,Random URon 12-02-2024 Creatinine [Mass/Vol] 114.00 mg/dL Normal NO RAN GE EST. [facility] Comment on above: Performed By: #### L 501.9520, L501.5200, L501.9985, L503.0106, L500.4100, L506.1001, L500.4050, L100.0500 #### [facility] [address] [place], [place], [id number] MALB:CRE 491.2 mg/g CRE High <30 mg/g CRE [facility] Comment on above: Performed By: #### L 501.9520, L501.5200, L501.9985, L503.0106, L500.4100, L506.1001, L500.4050, L100.0500 #### [facility] [address] [facility]. [place], [place], [id number] MICROALBUMIN,UR 560.0 mg/L Normal NO RANGE EST. [facility] Comment on above: Performed By: #### L 501.9520, L501.5200, L501.9985, L503.0106, L500.4100, L506.1001, L500.4050, L100.0500 #### [facility] [address] [facility] [place], [address] Monocyte percentageOrdered B y: PHYLLIS MAE on 12-02-2024 Monocytes/100 WBC (Bld) 7.6 % 0-10 [facility] Neutrophil percentageOrdered By: PHYLLIS MAE on 12-02-2024 Neutrophils/100 WBC (Bld) 53.3 % 47-70 [facility] Nucleated red blood cell per centageOrdered By: PHYLLIS MAE on 12-02-2024 Nucleated RBC/100 WBC (Bld) [Ratio] 0 % 0-5 [facility] Platelet countOrdered By: HAYLEY MAE on 12-02-2024 Platelets (Bld) [#/Vol] 277 10*3/uL 150-450 [facility] Potassium measurementOrdered By: PHYLLIS MAE on 12-02-2024 Potassium [Moles/Vol] 4.8 mmol/L 3.5-5.1 [facility] RBC Auto (Bld) [#/Vol]Ordere d By: PHYLLIS MAE on 12-02-2024 RBC (Bld) [#/Vol] 3.60 10*6/uL Low 4.6-6.2 [facility] Random urine microalbumin me asurementOrdered By: PHYLLIS MAE on 12-02-2024 Urine Random Microalbumin 560.0 mg/L NO RANGE EST. [facility] Serum anion gap measurementO rdered By: PHYLLIS MAE on 12-02-2024 Anion gap [Moles/Vol] 7 mmol/L 5-15 [facility] Serum globulin measurementOr dered By: PHYLLIS MAE on 12-02-2024 Globulin (S) [Mass/Vol] 3.8 g/dL 2.2-4.2 [facility] Serum or plasma alanine hutson otransferase (ALT) measurementOrdered By: PHYLLIS MAE on 12-02-2024 ALT [Catalytic activity/Vol] 31 U/L 16-61 [facility] Serum or plasma albumin quynh urement (mass/volume)Ordered By: PHYLLIS MAE on 12-02-2024 Albumin [Mass/Vol] 3.6 g/dL 3.2-5.0 [facility] Serum or plasma alkaline charito sphatase measurementOrdered By: PHYLLIS MAE on 12-02-2024 ALP [Catalytic activity/Vol] 42 U/L Low 45-117 [facility] Serum or plasma calcium quynh urement (mass/volume)Ordered By: PHYLLIS MAE on 12-02-2024 Calcium [Mass/Vol] 9.4 mg/dL 8.5-10.1 [facility] Serum or plasma creatinine m easurement (mass/volume)Ordered By: PHYLLIS MAE on 12-02-2024 Creatinine [Mass/Vol] 1.85 mg/dL High 0.70-1.30 [facility] Comment on above: The validity of the calculated GFR & GFRAA in patients over 70 years has not been determined. Clinical correlation is essential. Serum or plasma urea nitroge n measurement (mass/volume)Ordered By: PHYLLIS MAE on 12-02-2024 Urea nitrogen [Mass/Vol] 24 mg/dL High 7-18 [facility] Sodium levelOrdered By: ANTWAN MAE on 12-02-2024 Sodium [Moles/Vol] 139 mmol/L 136-145 [facility] T4 Free Directon 12-02-2024 T4 FREE DIRECT 0.94 ng/dL Normal 0.76-1.46 [facility] Comment on above: Order Comment: 111 Performed By: #### L 501.9520, L501.5200, L501.9985, L503.0106, L500.4100, L506.1001, L500.4050, L100.0500 #### [facility] [address] [place], [address] TIBCOrdered By: PHYLLIS GRAMAJO on 12-02-2024 Total Iron Binding Capacity 377 ug/dL 250-450 [facility] TSH QnOrdered By: PHYLLIS GONG on 12-02-2024 Thyroid Stimulating Hormone (TSH) 2.380 uIU/mL 0.358-3.740 [facility] Thyroid Stim Hormone (TSH)on 12-02-2024 TSH 2.380 uIU/mL Normal 0.358-3.740 [facility] Comment on above: Performed By: #### L 501.9520, L501.5200, L501.9985, L503.0106, L500.4100, L506.1001, L500.4050, L100.0500 #### [facility] [address] [place], [address] Total proteinOrdered By: JUAREZ MAE on 12-02-2024 Protein [Mass/Vol] 7.4 g/dL 6.4-8.2 [facility] Urine albumin/creatinine rat io for detection of microalbuminuriaOrdered By: PHYLLIS MAE on 12-02-2024 Urine Microalbumin/Creatinine Ratio 491.2 mg/g CRE High <30 [facility] Urine creatinine measurement (mass/volume)Ordered By: PHYLLIS MAE on 12-02-2024 Creatinine (U) [Mass/Vol] 114.00 mg/dL NO RANGE EST. [facility] Vitamin B12on 12-02-2024 Cobalamin (Vitamin B12) [Mass/Vol] 440 pg/mL Normal 211-911 [facility] Comment on above: Performed By: #### L 501.9520, L501.5200, L501.9985, L503.0106, L500.4100, L506.1001, L500.4050, L100.0500 #### [facility] [address] [place], [address] Vitamin B12 measurementOrder ed By: PHYLLIS MAE on 12-02-2024 Cobalamin (Vitamin B12) [Mass/Vol] 440 pg/mL 211-911 [facility] White blood cell (WBC) count Ordered By: PHYLLIS MAE on 12-02-2024 WBC (Bld) [#/Vol] 7.3 10*3/uL 4.4-11.0 [facility] Zinc WBOrdered By: PHYLLIS PAGE on 12-02-2024 Whole Blood Zinc 632 ug/dL 440-860 [facility] Comment on above: Performed at: [address] [id number] Director: Dilcia Sloan MD, Phone: [phone] NM MYOCARDIAL PERFUSION MULT I SPECTon 09-16-2024 NM MYOCARDIAL PERFUSION MULTI SPECT Patient Info Name: STEVO ELIZALDE Age: 74 years : 1950 Gender: Male Ht: 168 cm Wt: 64 kg BSA: 1.74 m2 HR: 56 bpm BP: 155 / 70 mmHg Heart Rhythm: Bradycardia Exam Date: 09/16/2024 9:00 AM Patient Status: Outpatient Information Services Consultant: Joelle Holbrook, RT(N), FAINA, LILLIE, Saurabh Holbrook RT(N), NCT Exam Type: NM MYOCARDIAL PERFUSION MULTI SPECT Study Info Indications - chest pain; history of CVA Nuclear Physician: Clarita Galvez MD Referring Physician: JAIDEN; [id number] Primary Nurse: Felicitas Cline RN Supervising Stress [...] right antecubital Administered By: Joelle Holbrook RT(N), LILLIE EISENBERG Camera Used: [employer] D-SPECT Radiopharmaceutical: Tc-99m Tetrofosmin Administration Site: IV - right antecubital Administered By: Saurabh Holbrook RT(N), NCT Camera Used: [employer] D-SPECT Image Protocol Protocol: Stress/Rest 1 Day [...] AM Dic (more content not included)... Normal [facility] Comment on above: Order Comment: Injur y/Trauma or Illness?:Illness/Other How long have you had these symptoms (acute/chronic)?:Unknown Reason for exam?:CP, CVA Type of Exam?:Unknown Additional signs and symptoms?:CP, CVA ECG 12 Leadon 09-09-2024 Atrial Rate [facility] P-R Interval [facility] Q-T Interval [facility] Q-T Interval (corrected) [facility] QRS Duration [facility] QTC Calculation (Bezet) [facility] T [facility] Ventricular Rate [facility] CBC W/Diff, Automatedon 11-0 Absolute Lymph 1.51 X10 3/uL Normal 0.83-4.51 [facility] Comment on above: Performed By: #### L 100.0500 #### [facility] [address] [place], [address] Absolute Neut 3.3 X10 3/uL Normal 2.0-7.7 [facility] Comment on above: Performed By: #### L 100.0500 #### [facility] [address] [place], [address] Basophils/100 WBC (Bld) 1.4 % High 0-1 [facility] Comment on above: Performed By: #### L 100.0500 #### [facility] [address] [place], [address] Eosinophils/100 WBC (Bld) 3.9 % Normal 0-5 [facility] Comment on above: Performed By: #### L 100.0500 #### [facility] [address] [place], [address] Erythrocyte distribution width (RBC) [Ratio] 12.1 % Normal 11.6-14.6 [facility] Comment on above: Performed By: #### L 100.0500 #### [facility] [address] [place], [address] Hematocrit (Bld) [Volume fraction] 35.0 % Low 40-54 [facility] Comment on above: Performed By: #### L 100.0500 #### [facility] [address] [place], [address] Hemoglobin (Bld) [Mass/Vol] 12.1 g/dL Low 13.0-16.5 [facility] Comment on above: Performed By: #### L 100.0500 #### [facility] [address] [place], [address] IG% 0.500 Normal 0.0-0.9 [facility] Comment on above: Result Comment: IG% - Immature Granulocytes (promyelocytes, myelocytes and metamyelocytes) > 1% indicates that a LEFT SHIFT is Present. Performed By: #### L 100.0500 #### [facility] [address] [place], [address] Lymphocytes/100 WBC (Bld) 27.0 % Normal 19-41 [facility] Comment on above: Performed By: #### L 100.0500 #### [facility] [address] [place], [address] MCH (RBC) [Entitic mass] 35.8 pg High 27.0-32.0 [facility] Comment on above: Performed By: #### L 100.0500 #### [facility] [address] [place], [address] MCHC (RBC) [Mass/Vol] 34.6 g/dL Normal 32-36 [facility] Comment on above: Performed By: #### L 100.0500 #### [facility] [address] [place], [address] MCV (RBC) [Entitic vol] 103.6 fL High 80-94 [facility] Comment on above: Performed By: #### L 100.0500 #### [facility] [address] [place], [address] Monocytes/100 WBC (Bld) 8.4 % Normal 0-10 [facility] Comment on above: Performed By: #### L 100.0500 #### [facility] [address] [place], [address] Neutrophils/100 WBC (Bld) 58.8 % Normal 47-70 [facility] Comment on above: Performed By: #### L 100.0500 #### [facility] [address] [place], [address] Nucleated RBC (Bld) [#/Vol] 0 10*3/uL Normal 0-5 [facility] Comment on above: Performed By: #### L 100.0500 #### [facility] [address] [place], [address] Platelet mean volume (Bld) [Entitic vol] 12.2 fL High 6.2-12.0 [facility] Comment on above: Performed By: #### L 100.0500 #### [facility] [address] [place], [address] Platelets (Bld) [#/Vol] 220 10*3/uL Normal 150-450 [facility] Comment on above: Performed By: #### L 100.0500 #### [facility] [address] [place], [address] RBC (Bld) [#/Vol] 3.38 10*6/uL Low 4.6-6.2 [facility] Comment on above: Performed By: #### L 100.0500 #### [facility] [address] [place], [address] RDW SD 45.8 fl High 35.1-43.9 [facility] Comment on above: Performed By: #### L 100.0500 #### [facility] [address] [place], [address] WBC (Bld) [#/Vol] 5.6 10*3/uL Normal 4.4-11.0 [facility] Comment on above: Performed By: #### L 100.0500 #### [facility] [address] [place], [address] Comprehensive Metabolic Prof njon 09-04-2024 Albumin [Mass/Vol] 3.3 g/dL Normal 3.2-5.0 [facility] Comment on above: Performed By: #### L 100.0500 #### [facility] [address] [place], [address] Albumin/Globulin [Mass ratio] 1.0 {ratio} Normal 0.9-2.4 [facility] Comment on above: Performed By: #### L 100.0500 #### [facility] [address] [place], [address] ALK P 37 U/L Low 45-117 [facility] Comment on above: Performed By: #### L 100.0500 #### [facility] [address] [place], [address] ALT [Catalytic activity/Vol] 25 U/L Normal 16-61 [facility] Comment on above: Performed By: #### L 100.0500 #### [facility] [address] [place], [address] AST [Catalytic activity/Vol] 24 U/L Normal 15-37 [facility] Comment on above: Result Comment: Slig ht Hemolysis, Result may be falsely increased. Performed By: #### L 100.0500 #### [facility] [address] [place], [address] Bilirubin [Mass/Vol] 0.40 mg/dL Normal 0.20-1.00 [facility] Comment on above: Result Comment: For patients on eltrombopag therapy, use of Dimension [place]ver TBIL is not recommended. Performed By: #### L 100.0500 #### [facility] [address] [place], [address] BUN/CRE 11.6 RATIO Normal 10-20 [facility] Comment on above: Performed By: #### L 100.0500 #### [facility] [address] [place], [address] CA,Total 9.0 mg/dL Normal 8.5-10.1 [facility] Comment on above: Performed By: #### L 100.0500 #### [facility] [address] [place], [address] Chloride [Moles/Vol] 103 mmol/L Normal 98-107 [facility] Comment on above: Performed By: #### L 100.0500 #### [facility] [address] [place], [address] CO2 [Moles/Vol] 25.0 mmol/L Normal 21.0-32.0 [facility] Comment on above: Performed By: #### L 100.0500 #### [facility] [address] [place], [address] Creatinine [Mass/Vol] 1.81 mg/dL High 0.70-1.30 [facility] Comment on above: Result Comment: The validity of the calculated GFR GFRAA in patients over 70 years has not been determined. Clinical correlation is essential. Performed By: #### L 100.0500 #### [facility] [address] [place], [address] EST GFR - AA 47 mL/min Low >60 [facility] Comment on above: Result Comment: Afri can Brazilian GFR Calc Performed By: #### L 100.0500 #### [facility] [address] [place], [address] GAP 5 Normal 5-15 [facility] Comment on above: Performed By: #### L 100.0500 #### [facility] [address] [place], [address] GFR/1.73 sq M.predicted among non-blacks MDRD (S/P/Bld) [Vol rate/Area] 39 mL/min/{1.73_m2} Low >60 [facility] Comment on above: Result Comment: Non- GFR Calc Performed By: #### L 100.0500 #### [facility] [address] [place], [address] Globulin (S) [Mass/Vol] 3.4 g/dL Normal 2.2-4.2 [facility] Comment on above: Performed By: #### L 100.0500 #### [facility] [address] [place], [address] Glucose [Mass/Vol] 246 mg/dL High 74-106 [facility] Comment on above: Result Comment: Gluc ose result greater than or equal to 200 mg/dL suggests DIABETES MELLITUS per A.D.A. criteria. Performed By: #### L 100.0500 #### [facility] [address] [place], [address] Potassium [Moles/Vol] 4.7 mmol/L Normal 3.5-5.1 [facility] Comment on above: Result Comment: Slig ht Hemolysis, Result may be falsely increased. Performed By: #### L 100.0500 #### [facility] [address] [place], [address] Sodium [Moles/Vol] 133 mmol/L Low 136-145 [facility] Comment on above: Performed By: #### L 100.0500 #### [facility] [address] [place], [address] T PROT 6.7 g/dL Normal 6.4-8.2 [facility] Comment on above: Performed By: #### L 100.0500 #### [facility] [address] [place], [address] Urea nitrogen [Mass/Vol] 21 mg/dL High 7-18 [facility] Comment on above: Performed By: #### L 100.0500 #### [facility] [address] [place], [address] Hemoglobin A1con 09-04-2024 HbA1c (Bld) [Mass fraction] 7.5 % High 3.8-5.6 [facility] Comment on above: Result Comment: Norm al < 5.7 % Prediabetic 5.7 - 6.4 % Diabetic >or= 6.5 % Please note range changes. Performed By: #### L 100.0500 #### [facility] [address] [place], [place], [address] T4 Free Directon 09-04-2024 T4 FREE DIRECT 0.89 ng/dL Normal 0.76-1.46 [facility] Comment on above: Performed By: #### L 100.0500 #### [facility] [address] [place], [place], [address] Thyroid Stim Hormone (TSH)on 09-04-2024 TSH 1.780 uIU/mL Normal 0.358-3.740 [facility] Comment on above: Performed By: #### L 100.0500 #### [facility] [address] [place], [place], [id number] CBC W Auto Differential pane l (Bld)on 08-05-2024 Basophils (Bld) [#/Vol] 0.10 x10*3/uL Normal 0.00-0.10 [facility] Comment on above: Performed By: #### 5 7021-8 #### LAYLA MENDOZA ([id number]) [facility] ([facility]) [address] [place] [address] Basophils/100 WBC (Bld) 1.4 % Normal 0.0-2.0 [facility] Comment on above: Performed By: #### 5 7021-8 #### LAYLA MENDOZA ([id number]) [facility] ([facility]) [address] [place] [address] Eosinophils (Bld) [#/Vol] 0.38 x10*3/uL Normal 0.00-0.40 [facility] Comment on above: Performed By: #### 5 7021-8 #### LAYLA MENDOZA ([id number]) [facility] ([facility]) [address] [place] [address] Eosinophils/100 WBC (Bld) 5.4 % Normal 0.0-6.0 [facility] Comment on above: Performed By: #### 5 7021-8 #### LAYLA MENDOZA ([id number]) [facility] ([facility]) [address] [place] [address] Erythrocyte distribution width (RBC) [Ratio] 12.8 % Normal 11.5-14.5 [facility] Comment on above: Performed By: #### 5 7021-8 #### LAYLA MENDOZA ([id number]) [facility] ([facility]) [address] [place] [address] Hematocrit (Bld) [Volume fraction] 40.5 % Low 41.0-52.0 [facility] Comment on above: Performed By: #### 5 7021-8 #### LAYLA MENDOZA ([id number]) [facility] ([facility]) [address] [place] [address] Hemoglobin (Bld) [Mass/Vol] 13.8 g/dL Normal 13.5-17.5 [facility] Comment on above: Performed By: #### 5 7021-8 #### LAYLA MENDOZA ([id number]) [facility] ([facility]) [address] [place], [place] [id number] Immature granulocytes (Bld) [#/Vol] 0.04 x10*3/uL Normal 0.00-0.50 [facility] Comment on above: Performed By: #### 5 7021-8 #### LAYLA MENDOZA ([id number]) [facility] ([facility]) [address] [place], [place] [id number] Immature granulocytes/100 WBC (Bld) 0.6 % Normal 0.0-0.9 [facility] Comment on above: Result Comment: Yaquelin ture Granulocyte Count (IG) includes promyelocytes, myelocytes and metamyelocytes but does not include bands. Percent differential counts (%) should be interpreted in the context of the absolute cell counts (cells/UL). Performed By: #### 5 7021-8 #### LAYLA MENDOZA ([id number]) [facility] ([facility]) [address] [place] [address] Lymphocytes (Bld) [#/Vol] 2.22 x10*3/uL Normal 0.80-3.00 [facility] Comment on above: Performed By: #### 5 7021-8 #### LAYLA MENDOZA ([id number]) [facility] ([facility]) [address] [place] [address] Lymphocytes/100 WBC (Bld) 31.5 % Normal 13.0-44.0 [facility] Comment on above: Performed By: #### 5 7021-8 #### LAYLA MENDOZA ([id number]) [facility] ([facility]) [address] [place] [address] MCH (RBC) [Entitic mass] 35.8 pg High 26.0-34.0 [facility] Comment on above: Performed By: #### 5 7021-8 #### LAYLA MENDOZA ([id number]) [facility] ([facility]) [address] [place] [address] MCHC (RBC) [Mass/Vol] 34.1 g/dL Normal 32.0-36.0 [facility] Comment on above: Performed By: #### 5 7021-8 #### LAYLA MENDOZA ([id number]) [facility] ([facility]) [address] [place] [address] MCV (RBC) [Entitic vol] 105 fL High 80-100 [facility] Comment on above: Performed By: #### 5 7021-8 #### LAYLA MENDOZA ([id number]) [facility] ([facility]) [address] [place] [address] Monocytes (Bld) [#/Vol] 0.48 x10*3/uL Normal 0.05-0.80 [facility] Comment on above: Performed By: #### 5 7021-8 #### LAYLA MENDOZA ([id number]) [facility] ([facility]) [address] [place] [address] 34783 Monocytes/100 WBC (Bld) 6.8 % Normal 2.0-10.0 [facility] Comment on above: Performed By: #### 5 7021-8 #### LAYLA MENDOZA ([id number]) [facility] ([facility]) [address] [place] [address] 35485 Neutrophils (Bld) [#/Vol] 3.82 x10*3/uL Normal 1.60-5.50 [facility] Comment on above: Result Comment: Perc ent differential counts (%) should be interpreted in the context of the absolute cell counts (cells/uL). Performed By: #### 5 7021-8 #### LAYLA MENDOZA ([id number]) [facility] ([facility]) [address] [place] [address] 25176 Neutrophils/100 WBC (Bld) 54.3 % Normal 40.0-80.0 [facility] Comment on above: Performed By: #### 5 7021-8 #### LAYLA MENDOZA ([id number]) [facility] ([facility]) [address] [place] [address] 99830 Nucleated RBC/100 WBC (Bld) [Ratio] 0.0 /100 WBCs Normal 0.0-0.0 [facility] Comment on above: Performed By: #### 5 7021-8 #### LAYLA MENDOZA ([id number]) [facility] ([facility]) [address] [place] [address] 60333 Platelets (Bld) [#/Vol] 298 x10*3/uL Normal 150-450 [facility] Comment on above: Result Comment: Plat elet count verified by smear review. Performed By: #### 5 7021-8 #### LAYLA MENDOZA ([id number]) [facility] ([facility]) [address] [place] [address] 63020 RBC (Bld) [#/Vol] 3.86 x10*6/uL Low 4.50-5.90 [facility] Comment on above: Performed By: #### 5 7021-8 #### LAYLA MENDOZA ([id number]) [facility] ([facility]) [address] [place] [address] 41713 WBC (Bld) [#/Vol] 7.0 x10*3/uL Normal 4.4-11.3 [facility] Comment on above: Performed By: #### 5 7021-8 #### LAYLA MENDOZA ([id number]) [facility] ([facility]) [address] [place] [address] Comprehensive metabolic 2000 panelon 08-05-2024 Albumin BCP dye [Mass/Vol] 4.2 g/dL Normal 3.4-5.0 [facility] Comment on above: Performed By: #### 2 4323-8 #### LAYLA MENDOZA ([id number]) [facility] ([facility]) [address] [place] [address] ALP [Catalytic activity/Vol] 37 U/L Normal 33-136 [facility] Comment on above: Performed By: #### 2 4323-8 #### LAYLA MENDOZA ([id number]) [facility] ([facility]) [address] [place] [address] ALT With P-5'-P [Catalytic activity/Vol] 11 U/L Normal 10-52 [facility] Comment on above: Result Comment: Shey ents treated with Sulfasalazine may generate falsely decreased results for ALT. Performed By: #### 2 4323-8 #### LAYLA MENDOZA ([id number]) [facility] ([facility]) [address] [place] [address] Anion gap [Moles/Vol] 12 mmol/L Normal 10-20 [facility] Comment on above: Performed By: #### 2 4323-8 #### LAYLA MENDOZA ([id number]) [facility] ([facility]) [address] [place], [place] [id number] AST With P-5'-P [Catalytic activity/Vol] 17 U/L Normal 9-39 [facility] Comment on above: Performed By: #### 2 4323-8 #### LAYLA MENDOZA ([id number]) [facility] ([facility]) [address] [place] [address] Bilirubin [Mass/Vol] 0.5 mg/dL Normal 0.0-1.2 [facility] Comment on above: Performed By: #### 2 4323-8 #### LAYLA MENDOZA ([id number]) [facility] ([facility]) [address] [place] [address] Calcium [Mass/Vol] 9.7 mg/dL Normal 8.6-10.3 [facility] Comment on above: Performed By: #### 2 4323-8 #### LAYLA MENDOZA ([id number]) [facility] ([facility]) [facility] [place] [address] Chloride [Moles/Vol] 100 mmol/L Normal 98-107 [facility] Comment on above: Performed By: #### 2 4323-8 #### LAYLA MENDOZA ([id number]) [facility] ([facility]) [address] [place] [address] 67134 CO2 [Moles/Vol] 27 mmol/L Normal 21-32 [facility] Comment on above: Performed By: #### 2 432-8 #### LAYLA MENDOZA ([id number]) [facility] ([facility]) [address] [place] [address] 12261 Creatinine [Mass/Vol] 1.55 mg/dL High 0.50-1.30 [facility] Comment on above: Performed By: #### 2 4323-8 #### LAYLA MENDOZA ([id number]) [facility] ([facility]) [address] [place] [address] 31250 Glomerular filtration rate/1.73 sq M.predicted 46 mL/min/1.73m*2 Low >60 [facility] Comment on above: Result Comment: Calc ulations of estimated GFR are performed using the 2020 CKD-EPI Study Refit equation without the race variable for the IDMS-Traceable creatinine methods. https://jasn.asnjournals.org/content/early/ASN.2020 040689 Performed By: #### 2 4323-8 #### LAYLA MENDOZA ([id number]) [facility] ([facility]) [facility] [place] [address] Glucose [Mass/Vol] 164 mg/dL High 74-99 [facility] Comment on above: Performed By: #### 2 4323-8 #### LAYLA MENDOZA ([id number]) [facility] ([facility]) [address] [place] [address] Potassium [Moles/Vol] 4.1 mmol/L Normal 3.5-5.3 [facility] Comment on above: Performed By: #### 2 4323-8 #### LAYLA MENDOZA ([id number]) [facility] ([facility]) [address] [place] [address] 96235 Protein [Mass/Vol] 7.3 g/dL Normal 6.4-8.2 [facility] Comment on above: Performed By: #### 2 4323-8 #### LAYLA MENDOZA ([id number]) [facility] ([facility]) [address] [place] [address] 11071 Sodium [Moles/Vol] 135 mmol/L Low 136-145 [facility] Comment on above: Performed By: #### 2 4323-8 #### LAYLA MENDOZA ([id number]) [facility] ([facility]) [address] [place] [address] Urea nitrogen [Mass/Vol] 20 mg/dL Normal 6-23 [facility] Comment on above: Performed By: #### 2 4323-8 #### LAYLA MENDOZA ([id number]) [facility] ([facility]) [address] [place] [address] 72494 HbA1c (Bld) [Mass fraction]o n 08-05-2024 Average glucose Estimated from glycated hemoglobin (Bld) [Mass/Vol] 174 mg/dL Normal Not Established [facility] Comment on above: Order Comment: Diagn osis of Diabetes-Adults Non-Diabetic: < or = 5.6% Increased risk for developing diabetes: 5.7-6.4% Diagnostic of diabetes: > or = 6.5% Performed By: #### 4 548-4 #### MANOHAR Duenas ([id number]) [facility] ([facility]) [id number] [place] [address] 00944 Hemoglobin A1c/Hemoglobin.to ada 08-05-2024 HbA1c (Bld) [Mass fraction] 7.7 % High See comment [facility] Comment on above: Order Comment: Diagn osis of Diabetes-Adults Non-Diabetic: < or = 5.6% Increased risk for developing diabetes: 5.7-6.4% Diagnostic of diabetes: > or = 6.5% Performed By: #### 4 548-4 #### MANOHAR Duenas ([id number]) [facility] ([facility]) [address] [place] [address] Magnesiumon 08-05-2024 Magnesium [Mass/Vol] 1.63 mg/dL Normal 1.60-2.40 [facility] Comment on above: Performed By: #### 1 9123-9 #### LAYLA MENDOZA ([id number]) [facility] ([facility]) [address] [place] [address] TSH WITH REFLEX TO FREE T4 I F ABNORMALon 08-05-2024 TSH Qn 2.72 m[IU]/L Normal 0.44-3.98 [facility] Comment on above: Order Comment: TSH t esting is performed using different testing methodology at [facility] than at other [facility]. Direct result comparisons should only be made within the same method. Performed By: #### T HYDS #### LAYLA MENDOZA ([id number]) [facility] ([facility]) [address] [place] [address] CBC W Auto Differential pane l (Bld)on 07-09-2024 Basophils (Bld) [#/Vol] 0.10 x10*3/uL Normal 0.00-0.10 [facility] Comment on above: Performed By: #### 5 7021-8 #### LAYLA MENDOZA ([id number]) [facility] ([facility]) [address] [place] [address] Basophils/100 WBC (Bld) 1.6 % Normal 0.0-2.0 [facility] Comment on above: Performed By: #### 5 7021-8 #### LAYLA MENDOZA ([id number]) [facility] ([facility]) [address] [place] [address] Eosinophils (Bld) [#/Vol] 0.26 x10*3/uL Normal 0.00-0.40 [facility] Comment on above: Performed By: #### 5 7021-8 #### LAYLA MENDOZA ([id number]) [facility] ([facility]) [address] [place] [address] 93570 Eosinophils/100 WBC (Bld) 4.2 % Normal 0.0-6.0 [facility] Comment on above: Performed By: #### 5 7021-8 #### LAYLA MENDOZA ([id number]) [facility] ([facility]) [address] [place] [address] 34509 Erythrocyte distribution width (RBC) [Ratio] 13.3 % Normal 11.5-14.5 [facility] Comment on above: Performed By: #### 5 7021-8 #### LAYLA MENDOZA ([id number]) [facility] ([facility]) [address] [place], [place] [id number] Hematocrit (Bld) [Volume fraction] 38.5 % Low 41.0-52.0 [facility] Comment on above: Performed By: #### 5 7021-8 #### LAYLA MENDOZA ([id number]) [facility] ([facility]) [address] [place] [address] 19394 Hemoglobin (Bld) [Mass/Vol] 12.4 g/dL Low 13.5-17.5 [facility] Comment on above: Performed By: #### 5 7021-8 #### LAYLA MENDOZA ([id number]) [facility] ([facility]) [address] [place] [address] 65715 Immature granulocytes (Bld) [#/Vol] 0.04 x10*3/uL Normal 0.00-0.50 [facility] Comment on above: Performed By: #### 5 7021-8 #### LAYLA MENDOZA ([id number]) [facility] ([facility]) [address] [place] [address] 85696 Immature granulocytes/100 WBC (Bld) 0.7 % Normal 0.0-0.9 [facility] Comment on above: Result Comment: Yaquelin ture Granulocyte Count (IG) includes promyelocytes, myelocytes and metamyelocytes but does not include bands. Percent differential counts (%) should be interpreted in the context of the absolute cell counts (cells/UL). Performed By: #### 5 7021-8 #### LAYLA MENDOZA ([id number]) [facility] ([facility]) [address] [place] [address] 64090 Lymphocytes (Bld) [#/Vol] 2.37 x10*3/uL Normal 0.80-3.00 [facility] Comment on above: Performed By: #### 5 7021-8 #### LAYLA MENDOZA ([id number]) [facility] ([facility]) [address] [place] [address] 64013 Lymphocytes/100 WBC (Bld) 38.5 % Normal 13.0-44.0 [facility] Comment on above: Performed By: #### 5 7021-8 #### LAYLA MENDOZA ([id number]) [facility] ([facility]) [address] [place] [address] 24787 MCH (RBC) [Entitic mass] 35.3 pg High 26.0-34.0 [facility] Comment on above: Performed By: #### 5 7021-8 #### LAYLA MENDOZA ([id number]) [facility] ([facility]) [address] [place] [address] 19549 MCHC (RBC) [Mass/Vol] 32.2 g/dL Normal 32.0-36.0 [facility] Comment on above: Performed By: #### 5 7021-8 #### LAYLA MENDOZA ([id number]) [facility] ([facility]) [address] [place] [address] 98916 MCV (RBC) [Entitic vol] 110 fL High 80-100 [facility] Comment on above: Performed By: #### 5 7021-8 #### LAYLA MENDOZA ([id number]) [facility] ([facility]) [address] [place] [address] 03958 Monocytes (Bld) [#/Vol] 0.47 x10*3/uL Normal 0.05-0.80 [facility] Comment on above: Performed By: #### 5 7021-8 #### LAYLA MENDOZA ([id number]) [facility] ([facility]) [address] [place] [address] 80227 Monocytes/100 WBC (Bld) 7.6 % Normal 2.0-10.0 [facility] Comment on above: Performed By: #### 5 7021-8 #### LAYLA MENDOZA ([id number]) [facility] ([facility]) [address] [place] [address] 54984 Neutrophils (Bld) [#/Vol] 2.91 x10*3/uL Normal 1.60-5.50 [facility] Comment on above: Result Comment: Perc ent differential counts (%) should be interpreted in the context of the absolute cell counts (cells/uL). Performed By: #### 5 7021-8 #### LAYLA MENDOZA ([id number]) [facility] ([facility]) [address] [place] [address] 93540 Neutrophils/100 WBC (Bld) 47.4 % Normal 40.0-80.0 [facility] Comment on above: Performed By: #### 5 7021-8 #### LAYLA MENDOZA ([id number]) [facility] ([facility]) [address] [place] [address] 17005 Nucleated RBC/100 WBC (Bld) [Ratio] 0.0 /100 WBCs Normal 0.0-0.0 [facility] Comment on above: Performed By: #### 5 7021-8 #### LAYLA MENDOZA ([id number]) [facility] ([facility]) [address] [place] [address] 28291 Platelets (Bld) [#/Vol] 53 x10*3/uL Low 150-450 [facility] Comment on above: Performed By: #### 5 7021-8 #### LAYLA MENDOZA ([id number]) [facility] ([facility]) [address] [place] [address] 49725 RBC (Bld) [#/Vol] 3.51 x10*6/uL Low 4.50-5.90 [facility] Comment on above: Performed By: #### 5 7021-8 #### LAYLA MENDOZA ([id number]) [facility] ([facility]) [address] [place] [address] 96901 WBC (Bld) [#/Vol] 6.2 x10*3/uL Normal 4.4-11.3 [facility] Comment on above: Performed By: #### 5 7021-8 #### LAYLA MENDOZA ([id number]) [facility] ([facility]) [address] [place] [address] 08209 Cobalaminson 07-09-2024 Cobalamin (Vitamin B12) [Mass/Vol] 289 pg/mL Normal 211-911 [facility] Comment on above: Performed By: #### 2 132-9 #### LAYLA MENDOZA ([id number]) [facility] ([facility]) [address] [place] [address] 20406 Ferritinon 07-09-2024 Ferritin [Mass/Vol] 331 ng/mL High 20-300 [facility] Comment on above: Performed By: #### 2 276-4 #### LAYLA MENDOZA ([id number]) [facility] ([facility]) [address] [place] [address] 00091 Folateon 07-09-2024 Folate [Mass/Vol] 3.5 ng/mL Low >5.0 [facility] Comment on above: Order Comment: Low < 3.4 Borderline 3.4-5.0 Normal >5.0 Patients receiving more than 5 mg/day of biotin may have interference in test results. A sample should be taken no sooner than eight hours after previous dose. Contact the testing laboratory for additional information. Performed By: #### 2 284-8 #### LAYLA MENDOZA ([id number]) [facility] ([facility]) [address] [place] [address] 16500 Iron and Iron binding capaci ty panelon 07-09-2024 Iron [Mass/Vol] 110 ug/dL Normal 35-150 [facility] Comment on above: Performed By: #### 5 0190-8 #### LAYLA MENDOZA ([id number]) [facility] ([facility]) [facility] [place] [address] Iron binding capacity [Mass/Vol] 397 ug/dL Normal 240-445 [facility] Comment on above: Performed By: #### 5 0190-8 #### LAYLA MENDOZA ([id number]) [facility] ([facility]) [address] [place] [address] 21898 Iron binding capacity.unsaturated [Mass/Vol] 287 ug/dL Normal 110-370 [facility] Comment on above: Performed By: #### 5 0190-8 #### LAYLA MENDOZA ([id number]) [facility] ([facility]) [address] [place] [address] 62613 Iron saturation [Mass fraction] 28 % Normal 25-45 [facility] Comment on above: Performed By: #### 5 0190-8 #### LAYLA MENDOZA ([id number]) [facility] ([facility]) [address] [place] [address] 60708 Methylmalonateon 07-09-2024 Methylmalonate [Moles/Vol] 0.24 umol/L Normal 0.00-0.40 [facility] Comment on above: Result Comment: INTE RPRETIVE INFORMATION: MMA Serum/Plasma, Vitamin B12 Status This test was developed and its performance characteristics determined by [employer]. It has not been cleared or approved by the [place] Food and Drug Administration. This test was performed in a CLIA certified laboratory and is intended for clinical purposes. Performed By: [employer] [address] [place] [address] Tannery Gummer: Eric Humphrey MD, PhD CLIA Number: [id number] Performed By: #### 4 548-4 #### LAYLA MENDOZA ([id number]) [facility] ([facility]) [address] [place] [address] 27330 PROTEIN / CREATININE RATIO, URINEon 06-27-2024 CREATININE,UR 152.0 mg/dL Normal [facility] Comment on above: Performed By: #### 4 7136 #### [address] [address] Eric Moser M.D. [id number] Protein (U) [Mass/Vol] 52.5 mg/dL Normal [facility] Comment on above: Performed By: #### 4 7136 #### [facility] [address] [place] [place] [address] Eric Moser M.D. [id number] PROTEIN CREATININE RATIO 0.3 ratio High 0.0-0.2 [facility] Comment on above: Performed By: #### 4 7136 #### [facility] [address] [place] [place] [address] Eric Moser M.D. [id number] PTH INTACT (PROCESSED AT [facility] )on 06-27-2024 Calcium [Mass/Vol] 9.8 mg/dL Normal 8.4-10.2 [facility] Comment on above: Performed By: #### 4 6413 #### [facility] [address] [place] [address] Eric Moser M.D. [id number] Order Comment: [facility] has implemented the eGFR calculation approach that does not have a coefficient for race that conforms to the NKF-ASN Task Force Recommendations. Performed By: #### 4 6449 #### [facility] [address] [place] [place] [address] Eric Moser M.D. [id number] PTH INTACT 15.7 pg/mL Normal 12.0-65.0 [facility] Comment on above: Performed By: #### 4 6413 #### [facility] [address] [place] [address] Eric Moser M.D. [id number] RENAL FUNCTION PANELon 06-27 Albumin [Mass/Vol] 3.9 g/dL Normal 3.2-5.2 [facility] Comment on above: Order Comment: [facility] has implemented the eGFR calculation approach that does not have a coefficient for race that conforms to the NKF-ASN Task Force Recommendations. Performed By: #### 4 6449 #### [facility] [address] [place] [address] Eric Moser M.D. [id number] Anion gap [Moles/Vol] 16 mmol/L Normal 10-20 [facility] Comment on above: Order Comment: [facility] has implemented the eGFR calculation approach that does not have a coefficient for race that conforms to the NKF-ASN Task Force Recommendations. Performed By: #### 4 6449 #### [facility] [address] [place], [place] [address] Eric Moser M.D. [id number] Chloride [Moles/Vol] 102 mmol/L Normal 98-108 [facility] Comment on above: Order Comment: [facility] has implemented the eGFR calculation approach that does not have a coefficient for race that conforms to the NKF-ASN Task Force Recommendations. Performed By: #### 4 6449 #### [facility] [address] [place], [place] [address] Eric Moser M.D. [id number] Creatinine [Mass/Vol] 1.46 mg/dL High 0.80-1.30 [facility] Comment on above: Order Comment: [facility] has implemented the eGFR calculation approach that does not have a coefficient for race that conforms to the NKF-ASN Task Force Recommendations. Performed By: #### 4 6449 #### [facility] [address] [place] [address] Eric Moser M.D. [id number] EGFR 50 mL/min/1.73 m2 Low >=60 [facility] Comment on above: Order Comment: [facility] has implemented the eGFR calculation approach that does not have a coefficient for race that conforms to the NKF-ASN Task Force Recommendations. Result Comment: Telma mated GFR was calculated using the 2020 CKD-EPI creatinine equation. Performed By: #### 4 6449 #### [facility] [address] [place], [place] [address] Eric Moser M.D. [id number] Glucose [Mass/Vol] 178 mg/dL High 65-99 [facility] Comment on above: Order Comment: [facility] has implemented the eGFR calculation approach that does not have a coefficient for race that conforms to the NKF-ASN Task Force Recommendations. Performed By: #### 4 6449 #### [facility] [address] [place], [place] [address] Eric Moser M.D. [id number] HCO3 (Bld) [Moles/Vol] 25 mmol/L Normal 21-32 [facility] Comment on above: Order Comment: [facility] has implemented the eGFR calculation approach that does not have a coefficient for race that conforms to the NKF-ASN Task Force Recommendations. Performed By: #### 4 6449 #### [facility] [address] [place] [address] Eric Moser M.D. [id number] Phosphate [Mass/Vol] 2.7 mg/dL Normal 2.3-3.7 [facility] Comment on above: Order Comment: [facility] has implemented the eGFR calculation approach that does not have a coefficient for race that conforms to the NKF-ASN Task Force Recommendations. Performed By: #### 4 6449 #### [facility] [address] [place] [address] Eric Moser M.D. [id number] Potassium [Moles/Vol] 5.0 mmol/L Normal 3.5-5.1 [facility] Comment on above: Order Comment: [facility] has implemented the eGFR calculation approach that does not have a coefficient for race that conforms to the NKF-ASN Task Force Recommendations. Performed By: #### 4 6449 #### [facility] [address] [place] [address] Eric Moser M.D. [id number] Sodium [Moles/Vol] 138 mmol/L Normal 135-145 [facility] Comment on above: Order Comment: [facility] has implemented the eGFR calculation approach that does not have a coefficient for race that conforms to the NKF-ASN Task Force Recommendations. Performed By: #### 4 6449 #### [facility] [address] [address] Eric Moser M.D. [id number] Urea nitrogen [Mass/Vol] 13 mg/dL Normal 8-25 [facility] Comment on above: Order Comment: [facility] has implemented the eGFR calculation approach that does not have a coefficient for race that conforms to the NKF-ASN Task Force Recommendations. Performed By: #### 4 6449 #### LAB [address] [place], [place] [address] Eric Moser M.D. [id number] Urea nitrogen/Creatinine [Mass ratio] 8.9 mg/mg Low 10.0-20.0 [facility] Comment on above: Order Comment: [facility] has implemented the eGFR calculation approach that does not have a coefficient for race that conforms to the NKF-ASN Task Force Recommendations. Performed By: #### 4 6449 #### LAB [address] [place], [place] [address] Eric Moser M.D. [id number] WOUND AEROBIC CULTUREon 04-29 WOUND AEROBIC CULTURE AEROBIC CULTURE Few Growth Normal Skin [place] GRAM STAIN RESULT No Organisms Seen Few WBC Many RBC Normal [facility] Comment on above: Performed By: #### 4 4060 #### [facility] [address] [place] [address] Bob Curran M.D. [id number] WOUND ANAEROBIC CULTUREon WOUND ANAEROBIC CULTURE ANAEROBE CULTURE No Anaerobic Growth at 5 Days Normal [facility] Comment on above: Performed By: #### 4 4287 #### [facility] [address] [place] [address] Bob Curran M.D. [id number] XR ORTHO FOOT RIGHTon 2023 XR ORTHO FOOT RIGHT 3 views of the right foot reviewed today AP MO and lateral. No acute fracture or dislocation of note. No evidence of cortical lysis or subcutaneous emphysema. Stable x-ray. Dictated by: BHUMIKA LIN on MonMay 19, 2024 10:27:10 AM EDT Transcribed by: BHUMIKA LIN on MonMay 19, 2024 10:27:10 AM EDT Finalized by: BHUMIKA LIN on MonMay 19, 2024 10:27:10 AM EDT Normal [facility] Comment on above: Order Comment: Injur y/Trauma or Illness?:Illness/Other How long have you had these symptoms (acute/chronic)?:Unknown Reason for exam?:Right great toe History of cancer?:Unknown Surgeries, chemotherapy, or radiation?:Unknown Type of Exam?:Initial Additional signs and symptoms?:Right great toe CBC W Auto Differential pane l (Bld)on 04-25-2024 Basophils (Bld) [#/Vol] 0.10 x10*3/uL Normal 0.00-0.10 [facility] Comment on above: Performed By: #### 5 7021-8 #### LAYLA MENDOZA ([id number]) [facility] ([facility]) [address] [place] [address] 88966 Basophils/100 WBC (Bld) 1.2 % Normal 0.0-2.0 [facility] Comment on above: Performed By: #### 5 7021-8 #### LAYLA MENDOZA ([id number]) [facility] ([facility]) [address] [place] [address] 13797 Eosinophils (Bld) [#/Vol] 0.36 x10*3/uL Normal 0.00-0.40 [facility] Comment on above: Performed By: #### 5 7021-8 #### LAYLA MENDOZA ([id number]) [facility] ([facility]) [address] [place] [address] 69317 Eosinophils/100 WBC (Bld) 4.4 % Normal 0.0-6.0 [facility] Comment on above: Performed By: #### 5 7021-8 #### LAYLA MENDOZA ([id number]) [facility] ([facility]) [address] [place] [address] 54188 Erythrocyte distribution width (RBC) [Ratio] 14.0 % Normal 11.5-14.5 [facility] Comment on above: Performed By: #### 5 7021-8 #### LAYLA MENDOZA ([id number]) [facility] ([facility]) [address] [place] [address] 83723 Hematocrit (Bld) [Volume fraction] 36.8 % Low 41.0-52.0 [facility] Comment on above: Performed By: #### 5 7021-8 #### LAYLA MENDOZA ([id number]) [facility] ([facility]) [address] [place] [address] 39369 Hemoglobin (Bld) [Mass/Vol] 12.2 g/dL Low 13.5-17.5 [facility] Comment on above: Performed By: #### 5 7021-8 #### LAYLA MENDOZA ([id number]) [facility] ([facility]) [address] [place] [address] 36574 Immature granulocytes (Bld) [#/Vol] 0.02 x10*3/uL Normal 0.00-0.50 [facility] Comment on above: Performed By: #### 5 7021-8 #### LAYLA MENDOZA ([id number]) [facility] ([facility]) [address] [place] [address] 07751 Immature granulocytes/100 WBC (Bld) 0.2 % Normal 0.0-0.9 [facility] Comment on above: Result Comment: Yaquelin ture Granulocyte Count (IG) includes promyelocytes, myelocytes and metamyelocytes but does not include bands. Percent differential counts (%) should be interpreted in the context of the absolute cell counts (cells/UL). Performed By: #### 5 7021-8 #### LAYLA MENDOZA ([id number]) [facility] ([facility]) [address] [place] [address] 82929 Lymphocytes (Bld) [#/Vol] 2.88 x10*3/uL Normal 0.80-3.00 [facility] Comment on above: Performed By: #### 5 7021-8 #### LAYLA MENDOZA ([id number]) [facility] ([facility]) [address] [place] [address] 03813 Lymphocytes/100 WBC (Bld) 35.3 % Normal 13.0-44.0 [facility] Comment on above: Performed By: #### 5 7021-8 #### LAYLA MENDOZA ([id number]) [facility] ([facility]) [address] [place] [address] 76655 MCH (RBC) [Entitic mass] 35.0 pg High 26.0-34.0 [facility] Comment on above: Performed By: #### 5 7021-8 #### LAYLA MENDOZA ([id number]) [facility] ([facility]) [address] [place] [address] 71045 MCHC (RBC) [Mass/Vol] 33.2 g/dL Normal 32.0-36.0 [facility] Comment on above: Performed By: #### 5 7021-8 #### LAYLA MENDOZA ([id number]) [facility] ([facility]) [address] [place] [address] 49157 MCV (RBC) [Entitic vol] 105 fL High 80-100 [facility] Comment on above: Performed By: #### 5 7021-8 #### LAYLA MENDOZA ([id number]) [facility] ([facility]) [address] [place] [address] 41878 Monocytes (Bld) [#/Vol] 0.79 x10*3/uL Normal 0.05-0.80 [facility] Comment on above: Performed By: #### 5 7021-8 #### LAYLA MENDOZA ([id number]) [facility] ([facility]) [address] [place] [address] 21818 Monocytes/100 WBC (Bld) 9.7 % Normal 2.0-10.0 [facility] Comment on above: Performed By: #### 5 7021-8 #### LAYLA MENDOZA ([id number]) [facility] ([facility]) [address] [place] [address] 87959 Neutrophils (Bld) [#/Vol] 4.01 x10*3/uL Normal 1.60-5.50 [facility] Comment on above: Result Comment: Perc ent differential counts (%) should be interpreted in the context of the absolute cell counts (cells/uL). Performed By: #### 5 7021-8 #### LAYLA MENDOZA ([id number]) [facility] ([facility]) [address] [place] [address] 75054 Neutrophils/100 WBC (Bld) 49.2 % Normal 40.0-80.0 [facility] Comment on above: Performed By: #### 5 7021-8 #### LAYLA MENDOZA ([id number]) [facility] ([facility]) [address] [place] [address] 65971 Nucleated RBC/100 WBC (Bld) [Ratio] 0.0 /100 WBCs Normal 0.0-0.0 [facility] Comment on above: Performed By: #### 5 7021-8 #### LAYLA MENDOZA ([id number]) [facility] ([facility]) [address] [place] [address] 16223 Platelets (Bld) [#/Vol] 282 x10*3/uL Normal 150-450 [facility] Comment on above: Performed By: #### 5 7021-8 #### LAYLA MENDOZA ([id number]) [facility] ([facility]) [address] [place] [address] 61598 RBC (Bld) [#/Vol] 3.49 x10*6/uL Low 4.50-5.90 [facility] [place] [facility] Comment on above: Performed By: #### 5 7021-8 #### LAYLA MENDOZA ([id number]) [facility] ([facility]) [address] [place] [address] 88281 WBC (Bld) [#/Vol] 8.2 x10*3/uL Normal 4.4-11.3 [facility] Comment on above: Performed By: #### 5 7021-8 #### LAYLA MENDOZA ([id number]) [facility] ([facility]) [address] [place] [address] 66103 Comprehensive metabolic 2000 panelon 04-25-2024 Albumin BCP dye [Mass/Vol] 4.2 g/dL Normal 3.4-5.0 [facility] Comment on above: Performed By: #### 2 4323-8 #### LAYLA MENDOZA ([id number]) [facility] ([facility]) [address] [place] [address] 88210 ALP [Catalytic activity/Vol] 40 U/L Normal 33-136 [facility] Comment on above: Performed By: #### 2 4323-8 #### LAYLA MENDOZA ([id number]) [facility] ([facility]) [address] [place] [address] ALT With P-5'-P [Catalytic activity/Vol] 14 U/L Normal 10-52 [facility] Comment on above: Result Comment: Shey ents treated with Sulfasalazine may generate falsely decreased results for ALT. Performed By: #### 2 4323-8 #### LAYLA MENDOZA ([id number]) [facility] ([facility]) [address] [place] [address] Anion gap [Moles/Vol] 14 mmol/L Normal 10-20 [facility] Comment on above: Performed By: #### 2 4322-8 #### LAYLA MENDOZA ([id number]) [facility] ([facility]) [address] [place] [address] AST With P-5'-P [Catalytic activity/Vol] 17 U/L Normal 9-39 [facility] Comment on above: Performed By: #### 2 4322-8 #### LAYLA MENDOZA ([id number]) [facility] ([facility]) [address] [place] [address] Bilirubin [Mass/Vol] 0.4 mg/dL Normal 0.0-1.2 [facility] [place] [facility] Comment on above: Performed By: #### 2 432-8 #### LAYLA MENDOZA ([id number]) [facility] ([facility]) [address] [place] [address] Calcium [Mass/Vol] 9.5 mg/dL Normal 8.6-10.3 [facility] Comment on above: Performed By: #### 2 4322-8 #### LAYLA MENDOZA ([id number]) [facility] ([facility]) [address] [place] [address] Chloride [Moles/Vol] 103 mmol/L Normal 98-107 [facility] [place] [facility] Comment on above: Performed By: #### 2 4323-8 #### LAYLA MENDOZA ([id number]) [facility] ([facility]) [address] [place] [address] 65403 CO2 [Moles/Vol] 21 mmol/L Normal 21-32 [facility] Comment on above: Performed By: #### 2 4323-8 #### LAYLA MENDOZA ([id number]) [facility] ([facility]) [address] [place] [address] 52448 Creatinine [Mass/Vol] 1.44 mg/dL High 0.50-1.30 [facility] Comment on above: Performed By: #### 2 4323-8 #### LAYLA MENDOZA ([id number]) [facility] ([facility]) [address] [place] [address] 91015 Glomerular filtration rate/1.73 sq M.predicted 51 mL/min/1.73m*2 Low >60 [facility] Comment on above: Result Comment: Calc ulations of estimated GFR are performed using the 2020 CKD-EPI Study Refit equation without the race variable for the IDMS-Traceable creatinine methods. https://jasn.asnjournals.org/content/early//ASN.2020 516830 Performed By: #### 2 432-8 #### LAYLA MENDOZA ([id number]) [facility] ([facility]) [address] [place] [address] 15289 Glucose [Mass/Vol] 192 mg/dL High 74-99 [facility] Comment on above: Performed By: #### 2 432-8 #### LAYLA MENDOZA ([id number]) [facility] ([facility]) [address] [place] [address] 11616 Potassium [Moles/Vol] 4.3 mmol/L Normal 3.5-5.3 [facility] Comment on above: Performed By: #### 2 4323-8 #### LAYLA MENDOZA ([id number]) [facility] ([facility]) [address] [place] [address] 56444 Protein [Mass/Vol] 6.9 g/dL Normal 6.4-8.2 [facility] Comment on above: Performed By: #### 2 4323-8 #### LAYLA MENDOZA ([id number]) [facility] ([facility]) [address] [place] [address] Sodium [Moles/Vol] 134 mmol/L Low 136-145 [facility] Comment on above: Performed By: #### 2 4323-8 #### LAYLA MENDOZA ([id number]) [facility] ([facility]) [address] [place] [address] 56475 Urea nitrogen [Mass/Vol] 22 mg/dL Normal 6-23 [facility] Comment on above: Performed By: #### 2 4323-8 #### LAYLA MENDOZA ([id number]) [facility] ([facility]) [address] [place] [address] 13503 HbA1c (Bld) [Mass fraction]o n 04-25-2024 Average glucose Estimated from glycated hemoglobin (Bld) [Mass/Vol] 192 mg/dL Normal Not Established [facility] Comment on above: Order Comment: Diagn osis of Diabetes-Adults Non-Diabetic: < or = 5.6% Increased risk for developing diabetes: 5.7-6.4% Diagnostic of diabetes: > or = 6.5% Performed By: #### 4 548-4 #### LAYLA MENDOZA ([id number]) [facility] ([facility]) [address] [place], [place] [address] Hemoglobin A1c/Hemoglobin.to ada 04-25-2024 HbA1c (Bld) [Mass fraction] 8.3 % High see below [facility] Comment on above: Order Comment: Diagn osis of Diabetes-Adults Non-Diabetic: < or = 5.6% Increased risk for developing diabetes: 5.7-6.4% Diagnostic of diabetes: > or = 6.5% Performed By: #### 4 548-4 #### LAYLA MENDOZA ([id number]) [facility] ([facility]) [address] [place] [address] 58167 Lipid 1996 panelon 4 Cholesterol [Mass/Vol] 181 mg/dL Normal 0-199 [facility] Comment on above: Result Comment: Age Desirable [...] By: #### 2 4331-1 #### LAYLA MENDOZA ([id number]) [facility] ([facility]) [address] [place] [address] 51182 Cholesterol in HDL [Mass/Vol] 34.0 mg/dL Normal [facility] Comment on above: Result Comment: Age Very Low Low Normal High 0-19 Y < 35 < 40 40-45 ---- 20-24 Y ---- < 40 >45 ---- >24 Y ---- < 40 40-60 >60 Performed By: #### 2 4331-1 #### LAYLA MENDOZA ([id number]) [facility] ([facility]) [address] [place] [address] 71721 Cholesterol in LDL [Mass/Vol] Normal [facility] Comment on above: Result Comment: The [...] By: #### 2 4331-1 #### LAYLA MENDOZA ([id number]) [facility] ([facility]) [address] [place] [address] 62371 CHOLESTEROL/HDL RATIO 5.3 Normal [facility] Comment on above: Result Comment: Ref Values Desirable < 3.4 High Risk > 5.0 Performed By: #### 2 4331-1 #### LAYLA MENDOZA ([id number]) [facility] ([facility]) [address] [place] [address] NON HDL CHOLESTEROL 147 mg/dL Normal 0-149 [facility] Comment on above: Result Comment: Age Desirable Borderline High High Very High 0-19 Y 0 - 119 120 - 144 >/= 145 >/= 160 20-24 Y 0 - 149 150 - 189 >/= 190 ---- >24 Y 30 mg/dL above LDL Cholesterol goal Performed By: #### 2 4331-1 #### LAYLA MENDOZA ([id number]) [facility] ([facility]) [address] [place] [address] Triglyceride [Mass/Vol] 546 mg/dL High 0-149 U [facility] Comment on above: Result Comment: Age Desirable [...] By: #### 2 4331-1 #### LAYLA MENDOZA ([id number]) [facility] ([facility]) [address] [place], [place] [address] VLDL Normal [facility] Comment on above: Result Comment: Unab le to calculate VLDL. Performed By: #### 2 4331-1 #### LAYLA MENDOZA ([id number]) [facility] ([facility]) [address] [place] [address] Prostate specific Agon 04-25 Prostate specific Ag [Mass/Vol] 0.95 ng/mL Normal <=4.00 [facility] Comment on above: Order Comment: The DA requires that the method used for PSA assay be reported to the physician. Values obtained with different assay methods must not be used interchangeably. This test was performed at [facility] using the Access Qianxs.combriteArkmicro PSA assay is a two-site immunoenzymatic sandwich assay. The assay is approved for measurement of prostate-specific antigen (PSA)in serum and may be used in conjunction with a digital rectal examination in men 50 years and older as an aid in detection of prostate cancer. 7-Arpun-gsuxaguso inhibitors (e.g. Proscar, Finasteride, Avodart, Dutasteride and Carmenza) for the treatment of BPH have been shown to lower PSA levels by an average of 50% after 6 months of treatment. Performed By: #### 2 857-1 #### RICH REJI ([id number]) [facility] ([facility]) [address] [place] [address] US DOPPLER SEGMENTAL ARTERIA L LEGS BILATERALon 03-21-2024 US DOPPLER SEGMENTAL ARTERIAL LEGS BILATERAL Patient Info Name: STEVO ELIZALDE Age: 74 years : 1950 Gender: Male Exam Date: 03/21/2024 3:08 PM Patient Status: Outpatient Telephone Repairer: Albert Sandra RVT Referring Physician: BUDDY LIN II ; Indications - non palpable pulses, tobacco use I73.9 - Peripheral vascular disease, unspecified Procedure Description [id number] Limited bilateral noninvasive physiologic studies of upper [...] Chaparro MD on 03/21/2024 04:04 PM Normal [facility] COMPREHENSIVE METABOLIC PANE Jer 03-08-2024 Albumin [Mass/Vol] 3.9 g/dL Normal 3.2-5.2 [facility] Comment on above: Order Comment: [facility] has implemented the eGFR calculation approach that does not have a coefficient for race that conforms to the NKF-ASN Task Force Recommendations. Performed By: #### 4 6126 #### [facility] [address] [place], [place] [id number] Bob Curran M.D. [id number] ALP [Catalytic activity/Vol] 53 U/L Normal 40-150 [facility] Comment on above: Order Comment: [facility] has implemented the eGFR calculation approach that does not have a coefficient for race that conforms to the NKF-ASN Task Force Recommendations. Performed By: #### 4 6126 #### [facility] [address] [place] [address] 29080 Bob Curran M.D. [id number] ALT [Catalytic activity/Vol] 12 U/L Normal 0-50 U/L [facility] Comment on above: Order Comment: [facility] has implemented the eGFR calculation approach that does not have a coefficient for race that conforms to the NKF-ASN Task Force Recommendations. Performed By: #### 4 6126 #### [facility] [address] [place] [address] 62996 Bob Curran M.D. [id number] Anion gap [Moles/Vol] 17 mmol/L Normal 10-20 [facility] Comment on above: Order Comment: [facility] has implemented the eGFR calculation approach that does not have a coefficient for race that conforms to the NKF-ASN Task Force Recommendations. Performed By: #### 4 6126 #### [facility] [address] [place] [address] 89729 Bob Curran M.D. [id number] AST [Catalytic activity/Vol] 16 U/L Normal 0-50 U/L [facility] Comment on above: Order Comment: [facility] has implemented the eGFR calculation approach that does not have a coefficient for race that conforms to the NKF-ASN Task Force Recommendations. Performed By: #### 4 6126 #### [facility] [address] [place] [address] 19871 Bob Curran M.D. [id number] Bilirubin [Mass/Vol] 0.3 mg/dL Normal 0.0-1.3 [facility] Comment on above: Order Comment: [facility] has implemented the eGFR calculation approach that does not have a coefficient for race that conforms to the NKF-ASN Task Force Recommendations. Performed By: #### 4 6126 #### [facility] [address] [place] [address] 31371 Bob Curran M.D. [id number] Calcium [Mass/Vol] 9.4 mg/dL Normal 8.4-10.2 [facility] Comment on above: Order Comment: [facility] has implemented the eGFR calculation approach that does not have a coefficient for race that conforms to the NKF-ASN Task Force Recommendations. Performed By: #### 4 6126 #### [facility] [address] [place] [address] 99489 Bob Curran M.D. [id number] Chloride [Moles/Vol] 99 mmol/L Normal 98-108 [facility] Comment on above: Order Comment: [facility] has implemented the eGFR calculation approach that does not have a coefficient for race that conforms to the NKF-ASN Task Force Recommendations. Performed By: #### 4 6126 #### [facility] [address] [place] [address] 53167 Bob Curran M.D. [id number] Creatinine [Mass/Vol] 1.33 mg/dL High 0.80-1.30 [facility] Comment on above: Order Comment: [facility] has implemented the eGFR calculation approach that does not have a coefficient for race that conforms to the NKF-ASN Task Force Recommendations. Performed By: #### 4 6126 #### [facility] [address] [place] [address] 84713 Bob Curran M.D. [id number] EGFR 56 mL/min/1.73 m2 Low >=60 [facility] Comment on above: Order Comment: [facility] has implemented the eGFR calculation approach that does not have a coefficient for race that conforms to the NKF-ASN Task Force Recommendations. Result Comment: Telma mated GFR was calculated using the 2020 CKD-EPI creatinine equation. Performed By: #### 4 6126 #### [facility] [address] [place] [address] 17832 Bob Curran M.D. [id number] Glucose [Mass/Vol] 201 mg/dL High 65-99 [facility] Comment on above: Order Comment: [facility] has implemented the eGFR calculation approach that does not have a coefficient for race that conforms to the NKF-ASN Task Force Recommendations. Performed By: #### 4 6126 #### [facility] [address] [place] [address] 97135 Bob Curran M.D. [id number] HCO3 (Bld) [Moles/Vol] 22 mmol/L Normal 21-32 [facility] Comment on above: Order Comment: [facility] has implemented the eGFR calculation approach that does not have a coefficient for race that conforms to the NKF-ASN Task Force Recommendations. Performed By: #### 4 6126 #### [facility] [address] [place] [address] 55467 Bob Curran M.D. [id number] Potassium [Moles/Vol] 4.9 mmol/L Normal 3.5-5.1 [facility] Comment on above: Order Comment: [facility] has implemented the eGFR calculation approach that does not have a coefficient for race that conforms to the NKF-ASN Task Force Recommendations. Performed By: #### 4 6126 #### [facility] [address] [place] [address] Bob Curran M.D. [id number] Protein [Mass/Vol] 7.3 g/dL Normal 6.0-8.0 [facility] Comment on above: Order Comment: [facility] has implemented the eGFR calculation approach that does not have a coefficient for race that conforms to the NKF-ASN Task Force Recommendations. Performed By: #### 4 6126 #### [facility] [address] [place], [place] [id number] Bob Curran M.D. [id number] Sodium [Moles/Vol] 133 mmol/L Low 135-145 [facility] Comment on above: Order Comment: [facility] has implemented the eGFR calculation approach that does not have a coefficient for race that conforms to the NKF-ASN Task Force Recommendations. Performed By: #### 4 6126 #### [facility] [address] [place] [address] Bob Curran M.D. [id number] Urea nitrogen [Mass/Vol] 23 mg/dL Normal 8-25 [facility] Comment on above: Order Comment: [facility] has implemented the eGFR calculation approach that does not have a coefficient for race that conforms to the NKF-ASN Task Force Recommendations. Performed By: #### 4 6126 #### [facility] [address] [place] [address] Bob Curran M.D. [id number] Urea nitrogen/Creatinine [Mass ratio] 17.3 mg/mg Normal 10.0-20.0 [facility] Comment on above: Order Comment: [facility] has implemented the eGFR calculation approach that does not have a coefficient for race that conforms to the NKF-ASN Task Force Recommendations. Performed By: #### 4 6126 #### [facility] [address] [place] [address] Bob Curran M.D. [id number] HEMOGLOBIN A1Con 03-08-2024 Glucose [Mass/Vol] 214 mg/dL High 74-114 [facility] Comment on above: Order Comment: Keturah l: 4.2% - 5.6% Increased risk for diabetes: 5.7% - 6.4% Diabetes: >= 6.5% Pediatrics: No established reference range Estimated average glucose: 74-114 mg/dL Performed By: #### 4 8202 #### [facility] [address] [place] [address] Bob Curran M.D. [id number] HbA1c (Bld) [Mass fraction] 9.1 % High 4.2-5.6 [facility] Comment on above: Order Comment: Keturah l: 4.2% - 5.6% Increased risk for diabetes: 5.7% - 6.4% Diabetes: >= 6.5% Pediatrics: No established reference range Estimated average glucose: 74-114 mg/dL Performed By: #### 4 8202 #### [facility] [address] [place] [address] Bob Curran M.D. [id number] LIPID PANELon 03-08-2024 Cholesterol [Mass/Vol] 161 mg/dL Normal 100-199 [facility] Comment on above: Performed By: #### 4 6087 #### [facility] [address] [place], [place] [id number] Bob Curran M.D. [id number] Cholesterol in HDL [Mass/Vol] 34 mg/dL Low 40-59 [facility] Comment on above: Performed By: #### 4 6087 #### [facility] [address] [place] [address] Bob Curran M.D. [id number] Cholesterol.total/Caren sterol in HDL [Mass ratio] 4.7 {ratio} Normal [facility] Comment on above: Result Comment: Male s Cholesterol/HDL Ratio: Average risk: 5.0 1/2 average risk: 3.4 2 x average risk: 9.6 Performed By: #### 4 6087 #### [facility] [address] [place], [place] [id number] Bob Curran M.D. [id number] LDL CHOLESTEROL CALCULATED 68 mg/dL Normal 10-130 [facility] Comment on above: Result Comment: [facility] onal Cholesterol Education Program Guidelines: LDL Cholesterol Optimal: <100 mg/dL Near Optimal/above Optimal: 100-129 mg/dL Borderline High: 130-159 mg/dL High: 160-189 mg/dL Very High: greater than or equal to 190 mg/dL Performed By: #### 4 6087 #### [facility] [address] [place], [place] [id number] Bob Curran M.D. [id number] NON HDL CHOL 127 mg/dL Normal [facility] Comment on above: Result Comment: [facility] onal Cholesterol Education Program Guidelines: NON HDL Cholesterol Desirable: <130 mg/dL Borderline High: 130-159 mg/dL High: 160-189 mg/dL Very High: > or = 190 mg/dL Performed By: #### 4 6029 #### [facility] [address] [place], [place] [address] Bob Curran M.D. [id number] Triglyceride [Mass/Vol] 294 mg/dL High 30-150 [facility] Comment on above: Performed By: #### 4 6096 #### [facility] [address] [place] [address] Bob Curran M.D. [id number] MICROALBUMIN/CREATININE RATI O, UR RANDOMon 03-08-2024 Albumin DL <= 20 mg/L (U) [Mass/Vol] 33.6 mg/dL High 0.0-1.8 [facility] Comment on above: Performed By: #### L [id number] #### LAB [address] [address] Eric Moser M.D. [id number] CREATININE, URINE, RANDOM 79.5 mg/dL Normal [facility] Comment on above: Performed By: #### L [id number] #### LAB [address] [address] Eric Moser M.D. [id number] MICROALBUMIN/CREATININE RATIO 423 mg/g crea High [facility] Comment on above: Performed By: #### L [id number] #### LAB [address] [address] Eric Moser M.D. [id number] T4, FREEon 03-08-2024 Free T4 [Mass/Vol] 1.1 ng/dL Normal 0.7-1.7 [facility] Comment on above: Performed By: #### 4 6567 #### [facility] [address] [place] [address] Bob Curran M.D. [id number] TSHon 03-08-2024 TSH Qn 1.99 m[IU]/L Normal 0.27-4.20 [facility] Comment on above: Performed By: #### 4 6613 #### [facility] [address] [place], [place] [address] Bob Curran M.D. [id number] COVID-19/INFLUENZA A,B MOLEC ULARon 02-22-2024 SARS-CoV-2 (COVID-19) Ab IA Ql SARS-COV-2 (EDITH): Not Detected INFLUENZA A (EDITH): Not Detected INFLUENZA B (EDITH): Not Detected Normal Not Detected [facility] Comment on above: Performed By: #### L [id number] #### [facility] [address] [place], [place] [address] Eric Moser M.D. [id number] XR CHEST PA/APon 02-22-2024 XR CHEST PA/AP [...] ID: [id number] Dictated by: BIB CRUZ on [facility] Feb 22, 2024 1:57:59 PM EDT Transcribed by: BIB CRUZ on [facility] Feb 22, 2024 1:57:59 PM EDT Finalized by: BIB CRUZ on [facility] Feb 22, 2024 1:57:59 PM EDT Normal [facility] Comment on above: Order Comment: Injur [...] / Basic Home Maintenance: dependent. Falls Risk Screening:. STEVO has not fallen in the last 6 months. Home safety risk factors: none. Advance directives:. Advance Care Planning discussed and documented in the medical record, patient did not wish or was not able to name a surrogate decision maker or provide an advance care plan. 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 SORE THROAT SINCE THIS MORNING, [...] (530.81) (K21. (more content not included)... Normal [employer] BASIC METABOLIC PANELon 10-30 Anion gap [Moles/Vol] 15 mmol/L Normal 10 - 20 [facility] Comment on above: Performed By: #### B MP #### [address] [address] Calcium [Mass/Vol] 9.4 mg/dL Normal 8.6 - 10.3 [facility] Comment on above: Performed By: #### B MP #### [address] [address] Chloride [Moles/Vol] 97 mmol/L Low 98 - 107 [facility] Comment on above: Performed By: #### B MP #### [address] [address] Creatinine [Mass/Vol] 2.08 mg/dL High 0.50 - 1.30 [facility] Comment on above: Performed By: #### B MP #### [address] [address] GFR/1.73 sq M.predicted among non-blacks MDRD (S/P/Bld) [Vol rate/Area] 33 mL/min/{1.73_m2} Abnormal >90 [facility] Comment on above: Result Comment: CALC ULATIONS OF ESTIMATED GFR ARE PERFORMED USING THE 2020 CKD-EPI STUDY REFIT EQUATION WITHOUT THE RACE VARIABLE FOR THE IDMS-TRACEABLE CREATININE METHODS. https://jasn.asnjournals.org/content/early/ASN.2020 928012 Performed By: #### B MP #### [address] [address] Glucose [Mass/Vol] 260 mg/dL High 74 - 99 [facility] Comment on above: Performed By: #### B MP #### [address] [address] HCO3 (Bld) [Moles/Vol] 24 mmol/L Normal 21 - 32 [facility] Comment on above: Performed By: #### B MP #### [address] [address] Potassium [Moles/Vol] 5.1 mmol/L Normal 3.5 - 5.3 [facility] Comment on above: Performed By: #### B MP #### [address] [address] Sodium [Moles/Vol] 131 mmol/L Low 136 - 145 [facility] Comment on above: Performed By: #### B MP #### [address] [address] Urea nitrogen [Mass/Vol] 38 mg/dL High 6 - 23 [facility] Comment on above: Performed By: #### B MP #### [address] [address] ANION GAP Canceled Normal [facility] Comment on above: Order Comment: TEST BASIC METABOLIC PANEL WAS CANCELLED, 11/09/2022 19:03 DUPLICATE ORDER. Performed By: #### B MP #### [address] [address] BICARBONATE Canceled Normal [facility] Comment on above: Order Comment: TEST BASIC METABOLIC PANEL WAS CANCELLED, 11/09/2022 19:03 DUPLICATE ORDER. Performed By: #### B MP #### [address] [address] CALCIUM Canceled Normal [facility] Comment on above: Order Comment: TEST BASIC METABOLIC PANEL WAS CANCELLED, 11/09/2022 19:03 DUPLICATE ORDER. Performed By: #### B MP #### [address] [address] CHLORIDE Canceled Normal [facility] Comment on above: Order Comment: TEST BASIC METABOLIC PANEL WAS CANCELLED, 11/09/2022 19:03 DUPLICATE ORDER. Performed By: #### B MP #### [address] [address] CREATININE Canceled Normal [facility] Comment on above: Order Comment: TEST BASIC METABOLIC PANEL WAS CANCELLED, 11/09/2022 19:03 DUPLICATE ORDER. Performed By: #### B MP #### [place] [id number] eGFR FEMALE Canceled Normal [facility] Comment on above: Order Comment: TEST BASIC METABOLIC PANEL WAS CANCELLED, 11/09/2022 19:03 DUPLICATE ORDER. Result Comment: CALC ULATIONS OF ESTIMATED GFR ARE PERFORMED USING THE 2020 CKD-EPI STUDY REFIT EQUATION WITHOUT THE RACE VARIABLE FOR THE IDMS-TRACEABLE CREATININE METHODS. https://jasn.asnjournals.org/content/early/ASN.2020 585575 Performed By: #### B MP #### [place] [id number] eGFR MALE Canceled Normal [facility] Comment on above: Order Comment: TEST BASIC METABOLIC PANEL WAS CANCELLED, 11/09/2022 19:03 DUPLICATE ORDER. Result Comment: CALC ULATIONS OF ESTIMATED GFR ARE PERFORMED USING THE 2020 CKD-EPI STUDY REFIT EQUATION WITHOUT THE RACE VARIABLE FOR THE IDMS-TRACEABLE CREATININE METHODS. https://jasn.asnjournals.org/content/earlyASN.2020 890771 Performed By: #### B MP #### [address] [address] GLUCOSE Canceled Normal [facility] Comment on above: Order Comment: TEST BASIC METABOLIC PANEL WAS CANCELLED, 11/09/2022 19:03 DUPLICATE ORDER. Performed By: #### B MP #### [address] [address] POTASSIUM Canceled Normal [facility] Comment on above: Order Comment: TEST BASIC METABOLIC PANEL WAS CANCELLED, 11/09/2022 19:03 DUPLICATE ORDER. Performed By: #### B MP #### [place] [id number] SODIUM Canceled Normal [facility] Comment on above: Order Comment: TEST BASIC METABOLIC PANEL WAS CANCELLED, 11/09/2022 19:03 DUPLICATE ORDER. Performed By: #### B MP #### [address] [address] UREA NITROGEN Canceled Normal [facility] Comment on above: Order Comment: TEST BASIC METABOLIC PANEL WAS CANCELLED, 11/09/2022 19:03 DUPLICATE ORDER. Performed By: #### B MP #### [address] [address] C Reactive Protein, Serumon 11-09-2022 CRP [Mass/Vol] 1.93 mg/dL Abnormal [facility] Work Phone: Comment on above: REF VALUE< 1.00 C-REACTIVE PROTEINon 023 C-REACTIVE PROTEIN 1.93 mg/dL Abnormal [facility] Comment on above: Result Comment: REF VALUE < 1.00 Performed By: #### C RP #### [address] [address] C-REACTIVE PROTEIN Canceled Normal [facility] Comment on above: Order Comment: TEST C-REACTIVE PROTEIN WAS CANCELLED, 11/09/2022 19:03 DUPLICATE ORDER. Performed By: #### C RP #### [address] [address] CBC AND DIFFERENTIALon 11-09 % AUTOMATED IMMATURE GRAN 3.6 % High 0.0 - 0.9 [facility] Comment on above: Result Comment: Yaquelin ture Granulocyte Count (IG) includes promyelocytes, myelocytes and metamyelocytes but does not include bands. Percent differential counts (%) should be interpreted in the context of the absolute cell counts (cells/L). Performed By: #### C BCDF #### [address] [address] Basophils (Bld) [#/Vol] 0.12 10*3/uL High 0.00 - 0.1 0 [facility] Comment on above: Performed By: #### C BCDF #### [address] [address] Basophils/100 WBC (Bld) 1.2 % Normal 0.0 - 2.0 [facility] Comment on above: Performed By: #### C BCDF #### [address] [address] Eosinophils (Bld) [#/Vol] 0.12 10*3/uL Normal 0.00 - 0.40 [facility] Comment on above: Performed By: #### C BCDF #### [address] [address] Eosinophils/100 WBC (Bld) 1.2 % Normal 0.0 - 6.0 [facility] Comment on above: Performed By: #### C BCDF #### [address] [address] Erythrocyte distribution width (RBC) [Ratio] 11.8 % Normal 11.5 - 14.5 [facility] Comment on above: Performed By: #### C BCDF #### [address] [address] Hematocrit (Bld) [Volume fraction] 33.8 % Low 41.0 - 52.0 [facility] Comment on above: Performed By: #### C BCDF #### [address] [address] Hemoglobin (Bld) [Mass/Vol] 11.6 g/dL Low 13.5 - 17.5 [facility] Comment on above: Performed By: #### C BCDF #### [address] [address] Lymphocytes (Bld) [#/Vol] 1.58 10*3/uL Normal 0.80 - 3.00 [facility] Comment on above: Performed By: #### C BCDF #### [address] [address] Lymphocytes/100 WBC (Bld) 16.0 % Normal 13.0 - 44.0 [facility] Comment on above: Performed By: #### C BCDF #### [address] [address] MCHC (RBC) [Mass/Vol] 34.3 g/dL Normal 32.0 - 36.0 [facility] Comment on above: Performed By: #### C BCDF #### [address] [address] MCV (RBC) [Entitic vol] 106 fL High 80 - 100 [facility] Comment on above: Performed By: #### C BCDF #### [address] [address] Monocytes (Bld) [#/Vol] 0.65 10*3/uL Normal 0.05 - 0.8 0 [facility] Comment on above: Performed By: #### C BCDF #### [address] [address] Monocytes/100 WBC (Bld) 6.6 % Normal 2.0 - 10.0 [facility] Comment on above: Performed By: #### C BCDF #### [address] [address] Neutrophils (Bld) [#/Vol] 7.04 10*3/uL High 1.60 - 5.50 [facility] Comment on above: Result Comment: Perc ent differential counts (%) should be interpreted in the context of the absolute cell counts (cells/L). Performed By: #### C BCDF #### [address] [address] Neutrophils/100 WBC (Bld) 71.4 % Normal 40.0 - 80.0 [facility] Comment on above: Performed By: #### C BCDF #### [address] [address] Platelets (Bld) [#/Vol] 311 10*3/uL Normal 150 - 450 [facility] Comment on above: Performed By: #### C BCDF #### [address] [address] RBC 3.20 x10E12/L Low 4.50 - 5.90 [facility] Comment on above: Performed By: #### C BCDF #### [address] [address] WBC (Bld) [#/Vol] 9.9 10*3/uL Normal 4.4 - 11.3 [facility] Comment on above: Performed By: #### C BCDF #### [address] [address] % AUTOMATED IMMATURE GRAN Canceled Normal [facility] Comment on above: Order Comment: TEST CBC AND DIFFERENTIAL WAS CANCELLED, 11/09/2022 19:03 DUPLICATE ORDER. Result Comment: Yaquelin ture Granulocyte Count (IG) includes promyelocytes, myelocytes and metamyelocytes but does not include bands. Percent differential counts (%) should be interpreted in the context of the absolute cell counts (cells/L). Performed By: #### C BCDF #### [address] [address] % BASOPHIL Canceled Normal [facility] Comment on above: Order Comment: TEST CBC AND DIFFERENTIAL WAS CANCELLED, 11/09/2022 19:03 DUPLICATE ORDER. Performed By: #### C BCDF #### [address] [address] % EOSINOPHIL Canceled Normal [facility] Comment on above: Order Comment: TEST CBC AND DIFFERENTIAL WAS CANCELLED, 11/09/2022 19:03 DUPLICATE ORDER. Performed By: #### C BCDF #### [address] [address] % LYMPHOCYTE Canceled Normal [facility] Comment on above: Order Comment: TEST CBC AND DIFFERENTIAL WAS CANCELLED, 11/09/2022 19:03 DUPLICATE ORDER. Performed By: #### C BCDF #### [address] [address] % MONOCYTE Canceled Normal [facility] Comment on above: Order Comment: TEST CBC AND DIFFERENTIAL WAS CANCELLED, 11/09/2022 19:03 DUPLICATE ORDER. Performed By: #### C BCDF #### [address] [address] % NEUTROPHIL Canceled Normal [facility] Comment on above: Order Comment: TEST CBC AND DIFFERENTIAL WAS CANCELLED, 11/09/2022 19:03 DUPLICATE ORDER. Performed By: #### C BCDF #### [place] [address] BASOPHIL Canceled Normal [facility] Comment on above: Order Comment: TEST CBC AND DIFFERENTIAL WAS CANCELLED, 11/09/2022 19:03 DUPLICATE ORDER. Performed By: #### C BCDF #### [place] [address] DIFFERENTIAL Canceled Normal [facility] Comment on above: Order Comment: TEST CBC AND DIFFERENTIAL WAS CANCELLED, 11/09/2022 19:03 DUPLICATE ORDER. Performed By: #### C BCDF #### [place] [address] EOSINOPHIL Canceled Normal [facility] Comment on above: Order Comment: TEST CBC AND DIFFERENTIAL WAS CANCELLED, 11/09/2022 19:03 DUPLICATE ORDER. Performed By: #### C BCDF #### [place] [address] HCT Canceled Normal [facility] Comment on above: Order Comment: TEST CBC AND DIFFERENTIAL WAS CANCELLED, 11/09/2022 19:03 DUPLICATE ORDER. Performed By: #### C BCDF #### [place] [address] HGB Canceled Normal [facility] Comment on above: Order Comment: TEST CBC AND DIFFERENTIAL WAS CANCELLED, 11/09/2022 19:03 DUPLICATE ORDER. Performed By: #### C BCDF #### [place] [address] LYMPHOCYTE Canceled Normal [facility] Comment on above: Order Comment: TEST CBC AND DIFFERENTIAL WAS CANCELLED, 11/09/2022 19:03 DUPLICATE ORDER. Performed By: #### C BCDF #### [place] [address] MCHC Canceled Normal [facility] Comment on above: Order Comment: TEST CBC AND DIFFERENTIAL WAS CANCELLED, 11/09/2022 19:03 DUPLICATE ORDER. Performed By: #### C BCDF #### [address] [address] MCV Canceled Normal [facility] Comment on above: Order Comment: TEST CBC AND DIFFERENTIAL WAS CANCELLED, 11/09/2022 19:03 DUPLICATE ORDER. Performed By: #### C BCDF #### [address] [address] MONOCYTE Canceled Normal [facility] Comment on above: Order Comment: TEST CBC AND DIFFERENTIAL WAS CANCELLED, 11/09/2022 19:03 DUPLICATE ORDER. Performed By: #### C BCDF #### [address] [address] NEUTROPHIL Canceled Normal [facility] Comment on above: Order Comment: TEST CBC AND DIFFERENTIAL WAS CANCELLED, 11/09/2022 19:03 DUPLICATE ORDER. Result Comment: Perc ent differential counts (%) should be interpreted in the context of the absolute cell counts (cells/L). Performed By: #### C BCDF #### [place] [address] PLT Canceled Normal [facility] Comment on above: Order Comment: TEST CBC AND DIFFERENTIAL WAS CANCELLED, 11/09/2022 19:03 DUPLICATE ORDER. Performed By: #### C BCDF #### [place] [id number] RBC Canceled Normal [facility] Comment on above: Order Comment: TEST CBC AND DIFFERENTIAL WAS CANCELLED, 11/09/2022 19:03 DUPLICATE ORDER. Performed By: #### C BCDF #### [place] [id number] RDW-CV Canceled Normal [facility] Comment on above: Order Comment: TEST CBC AND DIFFERENTIAL WAS CANCELLED, 11/09/2022 19:03 DUPLICATE ORDER. Performed By: #### C BCDF #### [place] [id number] WBC Canceled Normal [facility] Comment on above: Order Comment: TEST CBC AND DIFFERENTIAL WAS CANCELLED, 11/09/2022 19:03 DUPLICATE ORDER. Performed By: #### C BCDF #### [address] [place] [address] [place] [address] Complete Blood Count + Diffashish beltran 11-09-2022 Basophils/100 WBC (Bld) 1.2 % 0.0 - 2.0 [facility] Work Phone: Erythrocyte distribution width (RBC) [Ratio] 11.8 % See Below [facility] Work Phone: Comment on above: Reference Range: 11. 5 - 14.5 Hematocrit (Bld) [Volume fraction] 33.8 % below low threshold See Below [facility] Work Phone: Comment on above: Reference Range: 41. 0 - 52.0 Hemoglobin (Bld) [Mass/Vol] 11.6 g/dL below low threshold See Below [facility] Work Phone: Comment on above: Reference Range: 13. 5 - 17.5 Lymphocytes/100 WBC (Bld) 16.0 % See Below [facility] Work Phone: Comment on above: Reference Range: 13. 0 - 44.0 MCHC (RBC) [Mass/Vol] 34.3 g/dL See Below [facility] Work Phone: Comment on above: Reference Range: 32. 0 - 36.0 MCV (RBC) [Entitic vol] 106 fL above hi gh threshold 80 - 100 [facility] Work Phone: Monocytes/100 WBC (Bld) 6.6 % 2.0 - 10.0 M [facility] Work Phone: Neutrophils/100 WBC (Bld) 71.4 % See Below [facility] Work Phone: Comment on above: Reference Range: 40. 0 - 80.0 Platelets (Bld) [#/Vol] 311 10*3/uL 150 - 450 [facility] Work Phone: RBC (Bld) [#/Vol] 3.20 {x10E12/L} below low threshold See Below [facility] Work Phone: Comment on above: Reference Range: 4.5 0 - 5.90 WBC (Bld) [#/Vol] 9.9 10*3/uL 4.4 - 11.3 [facility] Work Phone: Complete Blood Count + Differential 0.12 {x10E9/L} See Below [facility] Work Phone: Comment on above: Reference Range: 0.0 0 - 0.10 Reference Range: 0.0 0 - 0.40 Complete Blood Count + Differential 0.65 {x10E9/L} See Below [facility] Work Phone: Comment on above: Reference Range: 0.0 5 - 0.80 Complete Blood Count + Differential 1.58 {x10E9/L} See Below [facility] Work Phone: Comment on above: Reference Range: 0.8 0 - 3.00 Complete Blood Count + Differential 7.04 {x10E9/L} above high threshold See Below [facility] Work Phone: Comment on above: Reference Range: 1.6 0 - 5.50 Percent differential counts (%) should be interpreted in the context of the absolute cell counts (cells/L). Complete Blood Count + Differential 1.2 % 0.0 - 6.0 [facility] Work Phone: Complete Blood Count + Differential 3.6 % above high threshold 0.0 - 0.9 [facility] Work Phone: Comment on above: Immature Granulocyte Count (IG) includes promyelocytes, myelocytes and metamyelocytes but does not include bands. Percent differential counts (%) should be interpreted in the context of the absolute cell counts (cells/L). Cult, Misc + smearon 023 Bacteria identified Cx Nom (Unsp spec) Abnormal [facility] Work Phone: FOOT COMPLETE, MIN 3 VIEWSon 11-09-2022 FOOT COMPLETE, MIN 3 VIEWS Patient Name: STEVO ELIZALDE STUDY: FOOT; COMPLETE, MIN 3 VIEWS; Right; 11/09/2022 4:09 pm INDICATION: right 2nd toe infection & heel infection, r/o free air . COMPARISON: None. ACCESSION NUMBER(S): [id number] ORDERING CLINICIAN: CHRISTOPHER GALINDO FINDINGS: Minimal superficial [...] changes. Electronically signed by: FRANSISCA POWELL MD [facility] - Chemistry and C hemistry - challengeon 11-09-2022 Anion gap [Moles/Vol] 15 mmol/L 10 - 20 [facility] Work Phone: Calcium [Mass/Vol] 9.4 mg/dL 8.6 - 10.3 [facility] Work Phone: Chloride [Moles/Vol] 97 mmol/L below low threshold 98 - 107 [facility] Work Phone: CO2 [Moles/Vol] 24 mmol/L 21 - 32 [facility] Internal Medicine Work Phone: Creatinine [Mass/Vol] 2.08 mg/dL above high threshold See Below [facility] Internal [facility] Work Phone: Comment on above: Reference Range: 0.5 0 - 1.30 Glucose [Mass/Vol] 260 mg/dL above high threshold 74 - 99 [facility] Internal Medicine Work Phone: Potassium [Moles/Vol] 5.1 mmol/L 3.5 - 5.3 [facility] Work Phone: Sodium [Moles/Vol] 131 mmol/L below low threshold 136 - 145 [facility] Work Phone: Urea nitrogen [Mass/Vol] 38 mg/dL above high threshold 6 - 23 [facility] Work Phone: MISCELLANEOUS CULT./SM.BACT. on 11-09-2022 MISCELLANEOUS CULT./SM.BACT. GAS Called- RB to FLYNN WILLS [place], 11/10/2022 16:23 PATIENT: STEVO ELIZALDE LOCATION: [address]#: [id number] : 48 AGE: SEX: M ORDERED BY: CHRISTOPHER GALINDO SOURCE: WOUND/ABSCESS COLLECTED: 11/09/22 15:44 ANTIBIOTICS AT RISSA.: RECEIVED : 11/10/22 00:57 SITE: RT SECOND TOE R E S U L T S GRAM STAIN FINAL 11/10/22 13:16 1+ GRANULOCYTES. 3+ GRAM (+) COCCI MISCELLANEOUS CULT./SM.BACT. FINAL 11/12/22 12:46 ISOLATE1 : Group A streptococcus 4+ Normal [facility] Comment on above: Performed By: #### M [facility] #### [facility] [address] [place] [address] No Panel Informationon 11-09 33 {mL/min/1.73m2} Abnormal >90 [facility] Internal Medicine Work Phone: Comment on above: CALCULATIONS OF TELMA MATED GFR ARE PERFORMED USING THE 2020 CKD-EPI STUDY REFIT EQUATION WITHOUT THE RACE VARIABLE FOR THE IDMS-TRACEABLE CREATININE METHODS.https://jasn.asnjournals.org/content// ASN.8897778564 Provider Note - ED v3on 10-30 Provider [...] Infection: DRAI (more content not included)... Normal [facility] Radiologyon 11-09-2022 XR Foot 3 Views Normal [facility] Internal Medicine Work Phone: SEDIMENTATION RATE, ERYTHROC YTEon 11-09-2022 SEDIMENTATION RATE, ERYTHROCYTE 46 mm/h High 0 - 20 [facility] Comment on above: Performed By: #### E SRWS #### [id number] [place] [address] SEDIMENTATION RATE, ERYTHROCYTE Canceled Normal [facility] Comment on above: Order Comment: TEST SEDIMENTATION RATE, ERYTHROCYTE WAS CANCELLED, 11/09/2022 19:03 DUPLICATE ORDER. Performed By: #### E SRWS #### [address] [address] Sedimentation Rate, Erythroc yteon 11-09-2022 ESR (Bld) [Velocity] 46 mm/h above high threshold 0 - 20 [facility] Internal Medicine Work Phone: Office Visit [...] pulmonary disease); BANDAR = N; Sent To: [facility]; Last Updated By: System, DigePrinter; 09/20/2022 2:23:32 PM Start: Nebulizer/Tubing/Mouthpi araceli KIT; USE DIRECTED Rx By: Phyllis Mae; Dispense: 0 Days ; #:1 Kit; Refill: 3; For: Chronic cough, COPD (chronic obstructive pulmonary disease); BANDAR = N; Sent To: [facility]; Last Updated By: AndrewDayMen [employer].S; 09/20/2022 2:23:33 PM DM2 (diabetes mellitus, type 2) Comprehensive Metabolic Panel; Status:Active; Requested for:[id number]; Perform:Lab Services - Lab To Draw (Blood Test); Due:[id number];Ordered; For:DM2 (diabetes mellitus, type 2); Ordered By:Phyllis aMe; Hemoglobin A1C; Status:Active; Requested for:[id number]; Perform:Lab Services - Lab To Draw (Blood Test); Due:[id number];Ordered; For:DM2 (diabetes mellitus, type 2); Ordered By:Phyllis Mae; Encounter for immunization Administered: Fluzone High-Dose Quadrivalent 0.7 ML Intramuscular Suspension Prefilled Syringe For: Encounter for immunization; Ordered By:Phyllis Mae; Effective Date:20Sep2022; Administered by: Daiana Cruz COAL WEIGHER: 09/20/2022 1:43:00 PM; Last Updated By: Daiana Cruz; 09/20/2022 1:43:45 PM Essential tremor Renew: Primidone 50 MG Oral Tablet; TAKE 1 TABLET AT BEDTIME Rx By: Phyllis Mae; Dispense: 30 Days ; #:30 Tablet; Refill: 11; For: Essential tremor; BANDAR = N; Verified Transmission to [id number]; Last Updated By: AndrewTheCrowd; 09/20/2022 1:28:13 PM GERD (gastroesophageal reflux disease), Intermittent epigastric abdominal pain Start: Sucralfate 1 GM Oral Tablet; TAKE 1 TABLET 4 TIMES DAILY, BEFORE MEALS AND AT BEDTIME Rx By: Phyllis Mae; Dispense: 30 Days ; #:120 Tablet; Refill: 0; For: GERD (gastroesophageal reflux disease), Intermittent epigastric abdominal pain; BANDAR = N; Verified Transmission to [id number]; Last Updated By: Andrew DNAnexus; 09/20/2022 1:28:13 PM Mixed hyperlipidemia Renew: Lovastatin 10 MG Oral Tablet; TAKE 1 TABLET DAILY Rx By: Phyllis Mae; Dispense: 90 Days ; #:90 Tablet; Refill: 3; For: Mixed hyperlipidemia; BANDAR = N; Verified Transmission to [facility]; Last Updated By: Alexx Morales; 09/20/2022 1:28:09 PM Patient Discussion/Summary 1/5 MON FOR ABDOMINAL PAIN. 3 MON FOR LABS. 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 CMP, HGBA1C Provider Impressions OFFERED TO DO EKG, CXR , PT REFUSED . 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 ADVISED TO GO TO [...] WORSE. 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 Normal [facility] PHQ-2 VITALSon 09-20-2022 Adult depression screening assessment No [facility] Internal Medicine Work Phone: Tobacco Screening.on 022 Fall risk assessment a) No falls within the last year [facility] Internal Medicine Work Phone: Tobacco use status CPHS b) No [facility] Internal Medicine Work Phone: Therapy Communicationon 04-29 [...] report was sent Normal [facility] Therapy Communicationon 07 Therapy Communication Message STEVO ELIZALDE no showed [...] report was sent Normal [facility] Therapy Communicationon 07- Therapy Communication Message STEVO ELIZALDE canceled today 05/06/22. Patient called to cancel no reason provided per front desk clerk. Signatures Electronically signed by : Quin Li [...] code time is 29 minutes. Therapeutic exercise (94119): timed minutes 29, units 2 . NuStep [...] Neuromuscular Re-education (more content not included)... Normal [facility] PT Progress Noteon 2 PT Progress Note No report was sent Normal [facility] Therapy Communicationon 07-0 Therapy Communication Message STEVO ELIZALDE canceled today 04/29/22. Patient called to cancel. Signatures Electronically signed by : Quin Li PTA; Apr 29 2022 2:35PM EST (Author) Normal [facility] Therapy Communication Message STEVO LANIERONE canceled today 04/29/22. Patient called to cancel. Signatures Electronically signed by : Quin Li PTA; Apr 29 2022 2:34PM EST (Author) Normal [facility] PT Progress Noteon 2 PT Progress Note No report was sent Normal [facility] Therapy Communicationon 06 Therapy Communication Message STEVO ELIZALDE canceled today 04/25/22. Per front desk clerk patient called to cancel due to broke [...] code time is 30 minutes. Therapeutic exercise (74030): timed minutes 30, units 2 . NuStep [...] Mini squats (more content not included)... Normal [facility] PT Progress Noteon 2 PT [...] code time is 42 minutes. Therapeutic exercise (00947): timed minutes 42, units 3 . NuStep [...] x 10 (N) . Provided today:. 04/18/22 [id number] handout provided and reviewed patient demonstrated good understanding. 'Scores and Scales' Signatures Electronically signed by : Quin Li, SUSTAINABILITY SPECIALIST; Apr 18 2022 12:31PM EST (Author) Electronically signed by : Lorena Evangelista, PT; Apr 18 2022 1:57PM EST Normal [facility] PT Initial Evaluationon PT Initial Evaluation Therapy Diagnosis Assessed Muscle [...] Date: 2020 (more content not included)... [facility] ([facility] ine)on 03-29-2022 Follow-up [...] symptoms; BANDAR = N; Verified Transmission to [id number]; Last Updated By: Cinegif; 03/29/2022 11:57:57 AM COPD (chronic obstructive pulmonary disease) Renew: Ventolin HFA 108 (90 Base) MCG/ACT Inhalation Aerosol Solution (Albuterol Sulfate HFA); USE 2 PUFFS EVERY 6 HOURS FOR SHORTNESS OF BREATH OR WHEEZING Rx By: Phyllis Mae; Dispense: 0 Days ; #:1 X 8 GM Inhaler; Refill: 11;For: COPD (chronic obstructive pulmonary disease); BANDAR = N; Verified Transmission to [id number]; Last Updated By: Alexx Morales; 03/29/2022 11:57:54 AM Essential tremor, H/O ETOH abuse, H/O: CVA (cerebrovascular accident) Neurology - General Referral Evaluation and Treatment Evaluate AND Treat, PT WANTS TO GO TO [facility] Status: Hold For - Scheduling Requested for: [id number] Ordered;For: Essential tremor, H/O ETOH abuse, H/O: CVA (cerebrovascular accident); Ordered By: Phyllis Mae Performed: Due: [id number] H/O: CVA (cerebrovascular accident) Renew: Clopidogrel Bisulfate 75 MG Oral Tablet; Take 1 tablet daily Rx By: Phyllis Mae; Dispense: 0 Days ; #:90 Tablet; Refill: 3;For: H/O: CVA (cerebrovascular accident); BANDAR = N; Verified Transmission to [id number]; Last Updated By: Nicole MoralesUltracell; 03/29/2022 11:57:50 AM Hypertension associated with type 2 diabetes mellitus Renew: Labetalol HCl - 100 MG Oral Tablet; TAKE 1 TABLET EVERY 12 HOURS DAILY Rx By: Phyllis Mae; Dispense: 90 Days ; #:180 Tablet; Refill: 3;For: Hypertension associated with type 2 diabetes mellitus; BANDAR = N; Verified Transmission to [id number]; Last Updated By: Nicole MoralesUltracell; 03/29/2022 11:57:54 AM Hypertriglyceridemia Renew: Fenofibrate 54 MG Oral Tablet; TAKE 1 TABLET DAILY Rx By: Phyllis Mae; Dispense: 90 Days ; #:90 Tablet; Refill: 3;For: Hypertriglyceridemia; BANDAR = N; Verified Transmission to [id number]; Last Updated By: Alexx Morales; 03/29/2022 11:57:54 AM Patient Discussion/Summary 3 MON. CMP, HGBA1C(TO [facility]) Provider Impressions ADVISED FOR FALL PRECAUTION, [...] no in (more content not included)... Normal [facility] Tobacco Screening.on Fall risk assessment a) No falls within the last year [facility] Internal Medicine Work Phone: Tobacco use status CPHS a) Yes [facility] Work Phone: Tobacco Screening. Yes [facility] Internal Medicine Work Phone: Therapy Communicationon 02-27 Therapy Communication Message STEVO ELIZALDE canceled today . Reason F. Signatures Electronically signed by : Rayo Herrera, PT; Mar 15 2022 12:07PM EST (Author) Normal [facility] Office Visit (Internal Medic ine)on 03-01-2022 Follow-up [...] Evaluate AND Treat, PT WANTS IT AT [facility] Status: Complete Done: [id number] Ordered; For: DJD (degenerative joint disease), cervical, H/O: CVA (cerebrovascular accident), Muscle weakness of lower extremity; Ordered By: Phyllis Mae Performed: Due: [id number]; Last Updated By: Jillian Can; 03/01/2022 2:39:[address] [facility] [address] AND SET UP PT APPOINTMENT Monday03/15/2022 AT 1130AM ARRIVE AT 1115AM. PT WANTS AT [facility] AND WILL CALL BACK TO SCHEDULE AFTER SHE CHECKS HER SCHEDULE Hyperlipemia Renew: Atorvastatin Calcium 20 MG Oral Tablet; TAKE 1 TABLET DAILY Rx By: Phyllis Mae; Dispense: 90 Days ; #:90 Tablet; Refill: 3; For: Hyperlipemia; BANDAR = N; Verified Transmission to [facility]; Last Updated By: Alexx Morales; 03/01/2022 1:38:38 PM Patient Discussion/Summary 1 MON FAX THE RESULT OF CAROTID DOPPLER AND U/S OF ABDOMINAL AORTA DR MARTINEZ AT [facility] Provider Impressions TEST RESULTS [...] (K80.20) Chroni (more content not included)... Normal [facility] Tobacco Screening.on 022 Fall risk assessment a) No falls within the last year [facility] Internal Medicine Work Phone: Tobacco use status CPHS a) Yes [facility] Internal Medicine Work Phone: Tobacco Screening. Yes [facility] Internal [facility] Work Phone: Medicare Annual Wellness Vis belkisn 01-04-2022 Medicare Annual Wellness Visit *Chief Complaint [...] risk factors: none. 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 MEDICARE WELLNESS EXAM.. CRF , [...] more fall s in the last year [facility] Work Phone: Tobacco use status CP a) Yes [facility] Work Phone: Tobacco Screening. Yes [facility] Work Phone: Tobacco Screening.on 021 Fall risk assessment b) One or more fall s in the last year [facility] Work Phone: Tobacco use status CP a) Yes [facility] Work Phone: Tobacco Screening. Yes [facility] Work Phone: Complete Blood Count + Diffe ilana 09-29-2021 Basophils/100 WBC (Bld) 1.7 % 0.0 - 2.0 [facility] Work Phone: Erythrocyte distribution width (RBC) [Ratio] 13.7 % See Below [facility] Work Phone: Comment on above: Reference Range: 11. 5 - 14.5 Hematocrit (Bld) [Volume fraction] 42.5 % See Below [facility] Work Phone: Comment on above: Reference Range: 41. 0 - 52.0 Hemoglobin (Bld) [Mass/Vol] 14.0 g/dL See Below [facility] Work Phone: Comment on above: Reference Range: 13. 5 - 17.5 Lymphocytes/100 WBC (Bld) 38.5 % See Below [facility] Work Phone: Comment on above: Reference Range: 13. 0 - 44.0 MCHC (RBC) [Mass/Vol] 32.9 g/dL See Below [facility] Work Phone: Comment on above: Reference Range: 32. 0 - 36.0 MCV (RBC) [Entitic vol] 110 fL above ks gh threshold 80 - 100 [facility] Work Phone: [phone] Monocytes/100 WBC (Bld) 10.2 % 2.0 - 10.0 [facility] Work Phone: Neutrophils/100 WBC (Bld) 45.4 % See Below [facility] Work Phone: Comment on above: Reference Range: 40. 0 - 80.0 Platelets (Bld) [#/Vol] 235 10*3/uL 150 - 450 [facility] Work Phone: RBC (Bld) [#/Vol] 3.86 {x10E12/L} below low threshold See Below [facility] Work Phone: Comment on above: Reference Range: 4.5 0 - 5.90 WBC (Bld) [#/Vol] 7.1 10*3/uL 4.4 - 11.3 [facility] Work Phone: Complete Blood Count + Differential 0.10 {x10E9/L} See Below [facility] Work Phone: Comment on above: Reference Range: 0.0 0 - 0.10 Complete Blood Count + Differential 0.30 {x10E9/L} See Below [facility] Work Phone: Comment on above: Reference Range: 0.0 0 - 0.40 Complete Blood Count + Differential 0.70 {x10E9/L} See Below [facility] Work Phone: Comment on above: Reference Range: 0.0 5 - 0.80 Complete Blood Count + Differential 2.70 {x10E9/L} See Below [facility] Work Phone: Comment on above: Reference Range: 0.8 0 - 3.00 Complete Blood Count + Differential 3.20 {x10E9/L} See Below [facility] Work Phone: Comment on above: Reference Range: 1.6 0 - 5.50 Percent differential counts (%) should be interpreted in the context of the absolute cell counts (cells/L). Complete Blood Count + Differential 4.2 % 0.0 - 6.0 [facility] Work Phone: Complete Blood Count + Differential 0.1 {/100_WBC} [facility] Work Phone: Laboratory - Chemistry and C hemistry - challengeon 09-29-2021 Albumin BCP dye [Mass/Vol] 4.2 g/dL 3.4 - 5.0 [facility] Work Phone: ALP [Catalytic activity/Vol] 82 U/L 33 - 136 [facility] Work Phone: ALT With P-5'-P [Catalytic activity/Vol] 13 U/L 10 - 52 [facility] Work Phone: Comment on above: Patients treated wit h Sulfasalazine may generate falsely decreased results for ALT. Anion gap [Moles/Vol] 18 mmol/L 10 - 20 [facility] Work Phone: AST With P-5'-P [Catalytic activity/Vol] 16 U/L 9 - 39 [facility] Work Phone: Bilirubin [Mass/Vol] 0.4 mg/dL 0.0 - 1.2 [facility] Work Phone: Calcium [Mass/Vol] 9.7 mg/dL 8.6 - 10.3 [facility] Work Phone: Chloride [Moles/Vol] 104 mmol/L 98 - 107 [facility] Work Phone: CO2 [Moles/Vol] 22 mmol/L 21 - 32 [facility] Work Phone: Creatinine [Mass/Vol] 1.71 mg/dL above high threshold See Below [facility] Work Phone: Comment on above: Reference Range: 0.5 0 - 1.30 Glucose [Mass/Vol] 149 mg/dL above high threshold 74 - 99 [facility] Work Phone: Potassium [Moles/Vol] 4.4 mmol/L 3.5 - 5.3 [facility] Work Phone: Protein [Mass/Vol] 7.3 g/dL 6.4 - 8.2 [facility] Work Phone: Sodium [Moles/Vol] 140 mmol/L 136 - 145 [facility] Work Phone: Urea nitrogen [Mass/Vol] 24 mg/dL above high threshold 6 - 23 [facility] Work Phone: Lipid Panelon 09-29-2021 Cholesterol [Mass/Vol] 217 mg/dL above hig h threshold 0 - 199 [facility] Work Phone: Comment on above: . AGE [...] dosing. Cholesterol in HDL [Mass/Vol] 47.0 mg/dL [facility] Work Phone: Comment on above: . AGE VERY LOW LOW N ORMAL HIGH 0-19 Y < 35 < 40 40-45 ---- 20-24 Y ---- < 40 >45 ---- >24 Y ---- < 40 40-60 >60. Cholesterol in LDL [Mass/Vol] - 0 - 99 [facility] Work Phone: Comment on above: . NEAR [...] sterol in HDL [Mass ratio] 4.6 {ratio} [facility] Work Phone: Comment on above: REF VALUESDESIRABLE < 3.4HIGH RISK > 5.0 Triglyceride [Mass/Vol] 582 mg/dL above hi gh threshold 0 - 149 [facility] Work Phone: Comment on above: . AGE [...] Lipid Panel SEE COMMENT 0 - 40 [facility] Work Phone: Comment on above: Unable to calculate VLDL. No Panel Informationon 09-29 47 {mL/min/1.73m2} Abnormal >60 [facility] Work Phone: Comment on above: CALCULATIONS OF TELMA MATED GFR ARE PERFORMED USING THE MDRD STUDY EQUATION FOR THE IDMS-TRACEABLE CREATININE METHODS. CLIN CHEM 2007;53:766-72 39 {mL/min/1.73m2} Abnormal >60 [facility] Work Phone: NORMAL [facility] Work Phone: Tobacco Screening.on Fall risk assessment b) One or more fall s in the last year [facility] Work Phone: Tobacco use status CPHS a) Yes [facility] Work Phone: Tobacco Screening. Yes [facility] Work Phone: Folate, Serumon 09-08-2021 Folate [Mass/Vol] 11.3 ng/mL >5.0 [facility] Work Phone: Comment on above: Low <3.4Borderline 3 .4-5.0Normal >5.0. Patients receiving more than 5 mg/day of biotin may have interference in test results. A sample should be taken no sooner than eight hours after previous dose. Contact the testing laboratory for additional information. Magnesium, Serumon Magnesium [Mass/Vol] 2.03 mg/dL See Below [facility] Work Phone: Comment on above: Reference Range: 1.6 0 - 2.40 Vitamin B12, Serumon Cobalamin (Vitamin B12) [Mass/Vol] 397 pg/mL 211 - 911 [facility] Work Phone: Tobacco Screening.on 021 Fall risk assessment b) One or more fall s in the last year [facility] Work Phone: Tobacco use status [facility] a) Yes [facility] Work Phone: Tobacco Screening. Yes [facility] Work Phone: Albumin, Serumon 08-16-2021 Albumin BCP dye [Mass/Vol] 4.2 g/dL 3.4 - 5.0 [facility] [place] [address] [place] Work Phone: Bicarbonate, Serumon 021 CO2 [Moles/Vol] 21 mmol/L 21 - 32 [facility] [place] [address] [place] Work Phone: Blood Urea Nitrogen, Serumon 08-16-2021 Urea nitrogen [Mass/Vol] 33 mg/dL above high threshold 6 - 23 [place] [address] [place] Work Phone: Calcium, Serumon 08-16-2021 Calcium [Mass/Vol] 9.4 mg/dL 8.6 - 10.3 [facility] [address] [address] [place] Work Phone: Chloride, Serumon 08-16-2021 Chloride [Moles/Vol] 105 mmol/L 98 - 107 [facility] [place] [address] [place] Work Phone: Creatinine, Serumon 08-16-20 21 Creatinine [Mass/Vol] 1.85 mg/dL above high threshold See Below [facility] [place] [address] [place] Work Phone: Comment on above: Reference Range: 0.5 0 - 1.30 Creatinine, Serum 44 {mL/min/1.73m2} Abnormal >60 [place] [address] [place] Work Phone: Comment on above: CALCULATIONS OF TELMA MATED GFR ARE PERFORMED USING THE MDRD STUDY EQUATION FOR THE IDMS-TRACEABLE CREATININE METHODS. CLIN CHEM 2007;53:766-72 Creatinine, Serum 36 {mL/min/1.73m2} Abnormal >60 [facility] [place] Work Phone: Laboratory - Chemistry and C hemistry - challengeon 08-16-2021 Anion gap [Moles/Vol] 18 mmol/L 10 - 20 [facility] [place] Work Phone: Potassium [Moles/Vol] 4.9 mmol/L 3.5 - 5.3 [facility] [place] Work Phone: Magnesium, Serumon 1 Magnesium [Mass/Vol] 2.04 mg/dL See Below [facility] [address] [place] Work Phone: Comment on above: Reference Range: 1.6 0 - 2.40 Parathormone Intact, Serumon 08-16-2021 Parathyrin.intact [Mass/Vol] 22.3 pg/mL See Below [facility] [place] Work Phone: Comment on above: Reference Range: 18. 5 - 88.0 Phosphorus, Serumon 08-16-20 21 Phosphate [Mass/Vol] 5.0 mg/dL above high threshold 2.5 - 4.9 [facility] [address] [place] Work Phone: Comment on above: The performance cassi acteristics of phosphorus testing in heparinized plasma have been validated by the individual laboratory site where testing is performed. Testing on heparinized plasma is not approved by the FDA; however, such approval is not necessary. Sodium, Serumon 08-16-2021 Sodium [Moles/Vol] 139 mmol/L 136 - 145 [facility] [address] [place] Work Phone: Total Protein, Urine Spoton 08-16-2021 Creatinine (U) [Mass/Vol] Canceled [facility] [place] Work Phone: Protein (U) [Mass/Vol] Canceled [facility] [place] Work Phone: Protein/Creatinine (U) [Ratio] Canceled [facility] [place] Work Phone: HbA1c (Bld) [Mass fraction]O rdered By: Akila Carroll on 08-03-2021 Interpretation and review of laboratory results Normal [facility] POC Hemoglobin [id number] By : Akila Carroll on 08-03-2021 HbA1c (Bld) [Mass fraction] 5.9 % 4.0 - 6.0 % [facility] Tobacco Screening.on 021 Fall risk assessment a) No falls within the last year [facility] Work Phone: Tobacco use status CPHS a) Yes [facility] Work Phone: Tobacco Screening. Yes [facility] Work Phone: Laboratory - Drug toxicology on 06-24-2021 Amphetamines Screen Ql Negative Cutoff 20 [facility] Work Phone: Barbiturates Screen Ql Negative Cutoff 50 [facility] Work Phone: Benzodiazepines Screen Ql Negative Cutoff 50 [facility] Work Phone: Cannabinoids Screen Ql Negative Cutoff 20 [facility] Work Phone: Cocaine Screen Ql Negative Cutoff 20 [facility] Work Phone: Methadone Screen Ql Negative Cutoff 25 [facility] Work Phone: Methamphetamine Ql Negative Cutoff 20 [facility] Work Phone: Opiates Screen Ql Negative Cutoff 20 [facility] Work Phone: oxyCODONE Ql Negative Cutoff 20 [facility] Work Phone: Phencyclidine Screen Ql Negative Cutoff 10 [facility] Work Phone: No Panel Informationon 06-24 Annotation comment [Interpretation] Narrative See Note [facility] Work Phone: Comment on above: INTERPRETIVE INFORMA [...] developed and its performance characteristics determined by [employer]. It has not been cleared or approved by the [place] Food and Drug Administration. This test was performed in a CLIA certified laboratory and is intended for clinical purposes.Performed By: [employer] [place] [id number] Director: Laurie Chavez MD Negative Cutoff 1 [facility] Work Phone: Complete Blood Count + [facility] Basophils/100 WBC (Bld) 2.2 % 0.0 - 2.0 [facility] Work Phone: Erythrocyte distribution width (RBC) [Ratio] 17.3 % above high threshold See Below [facility] Medicine Work Phone: Comment on above: Reference Range: 11. 5 - 14.5 Hematocrit (Bld) [Volume fraction] 37.6 % below low threshold See Below [facility] Work Phone: Comment on above: Reference Range: 41. 0 - 52.0 Hemoglobin (Bld) [Mass/Vol] 12.4 g/dL below low threshold See Below [facility] Work Phone: Comment on above: Reference Range: 13. 5 - 17.5 Lymphocytes/100 WBC (Bld) 27.3 % See Below [facility] Work Phone: Comment on above: Reference Range: 13. 0 - 44.0 MCHC (RBC) [Mass/Vol] 32.9 g/dL See Below [facility] Work Phone: Comment on above: Reference Range: 32. 0 - 36.0 MCV (RBC) [Entitic vol] 108 fL above hi gh threshold 80 - 100 [facility] Work Phone: Monocytes/100 WBC (Bld) 7.2 % 2.0 - 10.0 M [facility] Work Phone: Neutrophils/100 WBC (Bld) 56.5 % See Below [facility] Work Phone: Comment on above: Reference Range: 40. 0 - 80.0 Platelets (Bld) [#/Vol] 282 10*3/uL 150 - 450 [facility] Work Phone: RBC (Bld) [#/Vol] 3.49 {x10E12/L} below low threshold See Below [facility] Work Phone: Comment on above: Reference Range: 4.5 0 - 5.90 WBC (Bld) [#/Vol] 6.4 10*3/uL 4.4 - 11.3 [facility] Work Phone: Complete Blood Count + Differential 0.10 {x10E9/L} See Below [facility] Work Phone: Comment on above: Reference Range: 0.0 0 - 0.10 Complete Blood Count + Differential 0.40 {x10E9/L} See Below [facility] Work Phone: Comment on above: Reference Range: 0.0 0 - 0.40 Complete Blood Count + Differential 0.50 {x10E9/L} See Below [facility] Work Phone: Comment on above: Reference Range: 0.0 5 - 0.80 Complete Blood Count + Differential 1.80 {x10E9/L} See Below [facility] Work Phone: Comment on above: Reference Range: 0.8 0 - 3.00 Complete Blood Count + Differential 3.60 {x10E9/L} See Below [facility] Work Phone: Comment on above: Reference Range: 1.6 0 - 5.50 Percent differential counts (%) should be interpreted in the context of the absolute cell counts (cells/L). Complete Blood Count + Differential 6.8 % 0.0 - 6.0 [facility] Work Phone: Complete Blood Count + Differential 0.1 {/100_WBC} [facility] Work Phone: Ferritin, Serumon 06-21-2021 Ferritin [Mass/Vol] 183 ug/L 20 - 300 [facility] Work Phone: Folate, Serumon 06-21-2021 Folate [Mass/Vol] 10.2 ng/mL >5.0 [facility] Work Phone: Comment on above: Low <3.4Borderline 3 .4-5.0Normal >5.0. Patients receiving more than 5 mg/day of biotin may have interference in test results. A sample should be taken no sooner than eight hours after previous dose. Contact the testing laboratory for additional information. Laboratory - Chemistry and C hemistry - challengeon 06-21-2021 Albumin BCP dye [Mass/Vol] 3.9 g/dL 3.4 - 5.0 [facility] Work Phone: ALP [Catalytic activity/Vol] 103 U/L 33 - 136 [facility] Work Phone: ALT With P-5'-P [Catalytic activity/Vol] 12 U/L 10 - 52 [facility] Work Phone: Comment on above: Patients treated wit h Sulfasalazine may generate falsely decreased results for ALT. Anion gap [Moles/Vol] 13 mmol/L 10 - 20 [facility] Internal Medicine Work Phone: AST With P-5'-P [Catalytic activity/Vol] 14 U/L 9 - 39 [facility] Work Phone: Bilirubin [Mass/Vol] 0.3 mg/dL 0.0 - 1.2 [facility] Internal Medicine Work Phone: Calcium [Mass/Vol] 9.5 mg/dL 8.6 - 10.3 [facility] Work Phone: Chloride [Moles/Vol] 105 mmol/L 98 - 107 [facility] Internal [facility] Work Phone: CO2 [Moles/Vol] 22 mmol/L 21 - 32 [facility] Internal Medicine Work Phone: Creatinine [Mass/Vol] 1.38 mg/dL above high threshold See Below [facility] Work Phone: Comment on above: Reference Range: 0.5 0 - 1.30 Glucose [Mass/Vol] 164 mg/dL above high threshold 74 - 99 [facility] Medicine Work Phone: Iron [Mass/Vol] 60 ug/dL 35 - 150 [facility] Internal Medicine Work Phone: Iron binding capacity [Mass/Vol] 336 ug/dL 240 - 445 [facility] Medicine Work Phone: Potassium [Moles/Vol] 4.5 mmol/L 3.5 - 5.3 [facility] Work Phone: Protein [Mass/Vol] 6.9 g/dL 6.4 - 8.2 [facility] Work Phone: Sodium [Moles/Vol] 135 mmol/L below low threshold 136 - 145 [facility] Work Phone: Urea nitrogen [Mass/Vol] 27 mg/dL above high threshold 6 - 23 [facility] Medicine Work Phone: Magnesium, Serumon Magnesium [Mass/Vol] 1.94 mg/dL See Below -[facility] Internal Medicine Work Phone: Comment on above: Reference Range: 1.6 0 - 2.40 No Panel Informationon 06-21 62 {mL/min/1.73m2} >60 [facility] Medicine Work Phone: Comment on above: CALCULATIONS OF TELMA MATED GFR ARE PERFORMED USING THE MDRD STUDY EQUATION FOR THE IDMS-TRACEABLE CREATININE METHODS. CLIN CHEM 2007;[id number] 51 {mL/min/1.73m2} Abnormal >60 [facility] Work Phone: 18 % below low threshold 25 - 45 [facility] Work Phone: NORMAL [facility] Work Phone: Radiologyon 06-21-2021 XR Cervical spine 4 Views Normal [facility] Medicine Work Phone: No Panel Informationon 06-14 Normal [facility] Medicine Work Phone: Tobacco Screening.on 021 Fall risk assessment b) One or more fall s in the last year [facility] Work Phone: Tobacco use status CPHS a) Yes [facility] Medicine Work Phone: Tobacco Screening. Yes [facility] Medicine Work Phone: Glucose (Bld) [Mass/Vol]Orde red By: Bryce Alvarez on 05-11-2021 Glucose [Mass/Vol] 156 mg/dL High 65 - 99 mg/dL [facility] Interpretation and review of laboratory results Abnormal [facility] Glucose [Mass/Vol] 64 mg/dL Low 65 - 99 mg/dL [facility] Interpretation and review of laboratory results Abnormal [facility] Glucose [Mass/Vol] 81 mg/dL 65 - 99 mg/dL [facility] Interpretation and review of laboratory results Normal [facility] Glucose (Bld) [Mass/Vol]Orde red By: Bryce Alvarez on 05-10-2021 Glucose [Mass/Vol] 146 mg/dL High 65 - 99 mg/dL [facility] Interpretation and review of laboratory results Abnormal [facility] Glucose [Mass/Vol] 86 mg/dL 65 - 99 mg/dL [facility] Interpretation and review of laboratory results Normal [facility] Glucose [Mass/Vol] 198 mg/dL High 65 - 99 mg/dL [facility] Interpretation and review of laboratory results Abnormal [facility] Glucose [Mass/Vol] 134 mg/dL High 65 - 99 mg/dL [facility] Interpretation and review of laboratory results Abnormal [facility] Glucose [Mass/Vol] 97 mg/dL 65 - 99 mg/dL [facility] Interpretation and review of laboratory results Normal [facility] Basic metabolic 2000 panelOr dered By: Bryce Alvarez on 05-09-2021 Anion gap [Moles/Vol] 10 mmol/L 10 - 2 0 mmol/L [facility] Calcium [Mass/Vol] 8.5 mg/dL 8.4 - 10. 2 mg/dL [facility] Chloride [Moles/Vol] 110 mmol/L High 98 - 10 8 mmol/L [facility] Creatinine [Mass/Vol] 1.57 mg/dL High 0.80 - 1.30 [facility] GFR/1.73 sq M.predicted CKD-EPI (S/P/Bld) [Vol rate/Area] 43 Low >=60 mL/min/1.73 m2 [facility] Glucose [Mass/Vol] 121 mg/dL High 65 - 99 mg/dL [facility] HCO3 [Moles/Vol] 23 mmol/L 21 - 32 mmol/L [facility] Interpretation and review of laboratory results Abnormal [facility] Potassium [Moles/Vol] 4.4 mmol/L 3.5 - 5.1 mmol/L [facility] Sodium [Moles/Vol] 139 mmol/L 135 - 145 mmol/L [facility] Urea nitrogen [Mass/Vol] 26 mg/dL High 8 - 25 mg/dL [facility] Urea nitrogen/Creatinine [Mass ratio] 16.6 mg/mg [facility] The eGFR should be u sed for monitoring renal function only and not for medication dosing. [facility] CBC WITH AUTO DIFFERENTIALOr dered By: Bryce Alvarez on 05-09-2021 Basophils (Bld) [#/Vol] 0.06 10*3/uL [facility] Basophils/100 WBC (Bld) 0.8 % [facility] Eosinophils (Bld) [#/Vol] 0.31 10*3/uL [facility] Eosinophils/100 WBC (Bld) 4.1 % [facility] Erythrocyte distribution width (RBC) [Entitic vol] 14.1 % 11.6 - 14.8 % [facility] Hematocrit (Bld) [Volume fraction] 26.4 % Low 41.0 - 53.0 % [facility] Hemoglobin (Bld) [Mass/Vol] 8.6 g/dL Low 13.5 - 17.5 g/dL [facility] Immature granulocytes (Bld) [#/Vol] 0.09 10*3/uL [facility] Immature granulocytes/100 WBC (Bld) 1.20 % [facility] Comment on above: The IG parameter is the percentage of metamyelocytes, myelocytes and promyelocytes. An immature granulocyte count (IG) of 1% or more suggests the possibility of infection, an IG count of 3% is very likely related to an infection. Interpretation and review of laboratory results Abnormal [facility] Lymphocytes (Bld) [#/Vol] 2.55 10*3/uL [facility] Lymphocytes/100 WBC (Bld) 33.7 % [facility] MCH (RBC) [Entitic mass] 34.0 pg 26.0 - 34.0 pg [facility] MCHC (RBC) [Mass/Vol] 32.6 g/dL 31.0 - 37.0 g/dL [facility] MCV (RBC) [Entitic vol] 104.3 fL High 80.0 - 100.0 fL [facility] Monocytes (Bld) [#/Vol] 0.92 10*3/uL High [facility] Monocytes/100 WBC (Bld) 12.2 % [facility] Neutrophils (Bld) [#/Vol] 3.63 10*3/uL [facility] Neutrophils/100 WBC (Bld) 48.0 % [facility] Nucleated RBC (Bld) [#/Vol] 0.00 10*3/uL [facility] Nucleated RBC/100 WBC (Bld) [Ratio] 0.0 % [facility] Platelet mean volume (Bld) [Entitic vol] 10.9 fL 9.4 - 12.4 fL [facility] Platelets (Bld) [#/Vol] 265 10*3/uL [facility] RBC (Bld) [#/Vol] 2.53 10*6/uL Low [facility] WBC (Bld) [#/Vol] 7.56 10*3/uL [facility] Glucose (Bld) [Mass/Vol]Orde red By: Bryce Alvarez on 05-09-2021 Glucose [Mass/Vol] 239 mg/dL High 65 - 99 mg/dL [facility] Interpretation and review of laboratory results Abnormal [facility] Glucose [Mass/Vol] 93 mg/dL 65 - 99 mg/dL [facility] Interpretation and review of laboratory results Normal [facility] Glucose [Mass/Vol] 157 mg/dL High 65 - 99 mg/dL [facility] Interpretation and review of laboratory results Abnormal [facility] Glucose [Mass/Vol] 82 mg/dL 65 - 99 mg/dL [facility] Interpretation and review of laboratory results Normal [facility] Hepatic function 2000 panelO rdered By: Bryce Alvarez on 05-09-2021 Albumin [Mass/Vol] 2.5 g/dL Low 3.2 - 5.2 g/dL [facility] ALP [Catalytic activity/Vol] 156 U/L High 40 - 150 U/L [facility] ALT [Catalytic activity/Vol] 29 U/L 14 - 65 U/L [facility] AST [Catalytic activity/Vol] 21 U/L 0 - 45 U/L [facility] Bilirubin [Mass/Vol] 0.1 mg/dL 0.0 - 1 .3 mg/dL [facility] Bilirubin.conjugated [Mass/Vol] mg/dL 0.0 - 0.4 mg/dL [facility] Interpretation and review of laboratory results Abnormal [facility] Protein [Mass/Vol] 6.3 g/dL 6.0 - 8.0 g/dL [facility] Magnesium LevelOrdered By: Elton Alvarez on 05-09-2021 Magnesium [Mass/Vol] 1.8 mg/dL 1.6 - 2 .4 mg/dL [facility] Magnesium [Mass/Vol]Ordered By: Bryce Alvarez on 05-09-2021 Interpretation and review of laboratory results Normal [facility] Basic metabolic 2000 panelOr dered By: Bryce Alvarez on 05-08-2021 Anion gap [Moles/Vol] 15 mmol/L 10 - 2 0 mmol/L [facility] Calcium [Mass/Vol] 8.6 mg/dL 8.4 - 10. 2 mg/dL [facility] Chloride [Moles/Vol] 111 mmol/L High 98 - 10 8 mmol/L [facility] Creatinine [Mass/Vol] 1.66 mg/dL High 0.80 - 1.30 [facility] GFR/1.73 sq M.predicted CKD-EPI (S/P/Bld) [Vol rate/Area] 41 Low >=60 mL/min/1.73 m2 [facility] Glucose [Mass/Vol] 141 mg/dL High 65 - 99 mg/dL [facility] HCO3 [Moles/Vol] 19 mmol/L Low 21 - 32 mmol/L [facility] Interpretation and review of laboratory results Abnormal [facility] Potassium [Moles/Vol] 4.5 mmol/L 3.5 - 5.1 mmol/L [facility] Sodium [Moles/Vol] 140 mmol/L 135 - 145 mmol/L [facility] Urea nitrogen [Mass/Vol] 28 mg/dL High 8 - 25 mg/dL [facility] Urea nitrogen/Creatinine [Mass ratio] 16.9 mg/mg [facility] The eGFR should be u sed for monitoring renal function only and not for medication dosing. [facility] CBC WITH AUTO DIFFERENTIALOr dered By: Bryce Alvarez on 05-08-2021 Basophils (Bld) [#/Vol] 0.10 10*3/uL [facility] Basophils/100 WBC (Bld) 1.1 % [facility] Eosinophils (Bld) [#/Vol] 0.31 10*3/uL [facility] Eosinophils/100 WBC (Bld) 3.5 % [facility] Erythrocyte distribution width (RBC) [Entitic vol] 14.3 % 11.6 - 14.8 % [facility] Hematocrit (Bld) [Volume fraction] 26.7 % Low 41.0 - 53.0 % [facility] Hemoglobin (Bld) [Mass/Vol] 8.5 g/dL Low 13.5 - 17.5 g/dL [facility] Immature granulocytes (Bld) [#/Vol] 0.06 10*3/uL [facility] Immature granulocytes/100 WBC (Bld) 0.70 % [facility] Comment on above: The IG parameter is the percentage of metamyelocytes, myelocytes and promyelocytes. An immature granulocyte count (IG) of 1% or more suggests the possibility of infection, an IG count of 3% is very likely related to an infection. Interpretation and review of laboratory results Abnormal [facility] Lymphocytes (Bld) [#/Vol] 2.37 10*3/uL [facility] Lymphocytes/100 WBC (Bld) 26.7 % [facility] MCH (RBC) [Entitic mass] 34.0 pg 26.0 - 34.0 pg [facility] MCHC (RBC) [Mass/Vol] 31.8 g/dL 31.0 - 37.0 g/dL [facility] MCV (RBC) [Entitic vol] 106.8 fL High 80.0 - 100.0 fL [facility] Monocytes (Bld) [#/Vol] 1.04 10*3/uL High [facility] Monocytes/100 WBC (Bld) 11.7 % [facility] Neut[facility]ils (Bld) [#/Vol] 5.01 10*3/uL [facility] Neutrophils/100 WBC (Bld) 56.3 % [facility] Nucleated RBC (Bld) [#/Vol] 0.00 10*3/uL [facility] Nucleated RBC/100 WBC (Bld) [Ratio] 0.0 % [facility] Platelet mean volume (Bld) [Entitic vol] 11.3 fL 9.4 - 12.4 fL [facility] Platelets (Bld) [#/Vol] 264 10*3/uL [facility] RBC (Bld) [#/Vol] 2.50 10*6/uL Low [facility]alth WBC (Bld) [#/Vol] 8.89 10*3/uL [facility] eah [facility] Glucose (Bld) [Mass/Vol]Orde red By: Bryce Alvarez on 05-08-2021 Glucose [Mass/Vol] 145 mg/dL High 65 - 99 mg/dL [facility] Interpretation and review of laboratory results Abnormal [facility] Glucose [Mass/Vol] 163 mg/dL High 65 - 99 mg/dL [facility] Interpretation and review of laboratory results Abnormal [facility] Glucose [Mass/Vol] 92 mg/dL 65 - 99 mg/dL [facility] Interpretation and review of laboratory results Normal [facility] Glucose [Mass/Vol] 83 mg/dL 65 - 99 mg/dL [facility] Interpretation and review of laboratory results Normal [facility] Hepatic function 2000 panelO rdered By: Bryce Alvarez on 05-08-2021 Albumin [Mass/Vol] 2.6 g/dL Low 3.2 - 5.2 g/dL [facility] ALP [Catalytic activity/Vol] 168 U/L High 40 - 150 U/L [facility] ALT [Catalytic activity/Vol] 30 U/L 14 - 65 U/L [facility] AST [Catalytic activity/Vol] 18 U/L 0 - 45 U/L [facility] Bilirubin [Mass/Vol] 0.2 mg/dL 0.0 - 1 .3 mg/dL [facility] Bilirubin.conjugated [Mass/Vol] mg/dL 0.0 - 0.4 mg/dL [facility] Interpretation and review of laboratory results Abnormal [facility] Protein [Mass/Vol] 6.5 g/dL 6.0 - 8.0 g/dL [facility] Magnesium LevelOrdered By: Elton Alvarez on 05-08-2021 Magnesium [Mass/Vol] 1.9 mg/dL 1.6 - 2 .4 mg/dL [facility] Magnesium [Mass/Vol]Ordered By: Bryce Alvarez on 05-08-2021 Interpretation and review of laboratory results Normal [facility] Basic metabolic 2000 panelOr dered By: Bryce Alvarez on 05-07-2021 Anion gap [Moles/Vol] 10 mmol/L 10 - 2 0 mmol/L [facility] Calcium [Mass/Vol] 9.0 mg/dL 8.4 - 10. 2 mg/dL [facility] Chloride [Moles/Vol] 111 mmol/L High 98 - 10 8 mmol/L [facility] Creatinine [Mass/Vol] 1.68 mg/dL High 0.80 - 1.30 [facility] GFR/1.73 sq M.predicted CKD-EPI (S/P/Bld) [Vol rate/Area] 40 Low >=60 mL/min/1.73 m2 [facility] Glucose [Mass/Vol] 62 mg/dL Low 65 - 99 mg/dL [facility] Comment on above: [id number] CALLED ATTENT ION RESULT ON 05/07/2021 @ 0521 TO AND READ BACK BY [id number] in A37 HCO3 [Moles/Vol] 25 mmol/L 21 - 32 mmol/L [facility] Interpretation and review of laboratory results Abnormal [facility] Potassium [Moles/Vol] 4.6 mmol/L 3.5 - 5.1 mmol/L [facility] Sodium [Moles/Vol] 141 mmol/L 135 - 145 mmol/L [facility] Urea nitrogen [Mass/Vol] 27 mg/dL High 8 - 25 mg/dL [facility] Urea nitrogen/Creatinine [Mass ratio] 16.1 mg/mg [facility] The eGFR should be u sed for monitoring renal function only and not for medication dosing. [facility] CBC WITH AUTO DIFFERENTIALOr dered By: Bryce Alvarez on 05-07-2021 Basophils (Bld) [#/Vol] 0.08 10*3/uL [facility] Basophils/100 WBC (Bld) 1.1 % [facility] Eosinophils (Bld) [#/Vol] 0.30 10*3/uL [facility] Eosinophils/100 WBC (Bld) 4.1 % [facility] Erythrocyte distribution width (RBC) [Entitic vol] 14.2 % 11.6 - 14.8 % [facility] Hematocrit (Bld) [Volume fraction] 27.8 % Low 41.0 - 53.0 % [facility] Hemoglobin (Bld) [Mass/Vol] 9.0 g/dL Low 13.5 - 17.5 g/dL [facility] Immature granulocytes (Bld) [#/Vol] 0.10 10*3/uL [facility] Immature granulocytes/100 WBC (Bld) 1.40 % [facility] Comment on above: The IG parameter is the percentage of metamyelocytes, myelocytes and promyelocytes. An immature granulocyte count (IG) of 1% or more suggests the possibility of infection, an IG count of 3% is very likely related to an infection. Interpretation and review of laboratory results Abnormal [facility] Lymphocytes (Bld) [#/Vol] 2.65 10*3/uL [facility] Lymphocytes/100 WBC (Bld) 36.4 % [facility] MCH (RBC) [Entitic mass] 33.6 pg 26.0 - 34.0 pg [facility] MCHC (RBC) [Mass/Vol] 32.4 g/dL 31.0 - 37.0 g/dL [facility] MCV (RBC) [Entitic vol] 103.7 fL High 80.0 - 100.0 fL [facility] Monocytes (Bld) [#/Vol] 0.94 10*3/uL High [facility] Monocytes/100 WBC (Bld) 12.9 % [facility] Neutrophils (Bld) [#/Vol] 3.21 10*3/uL [facility] Neutrophils/100 WBC (Bld) 44.1 % [facility] Nucleated RBC (Bld) [#/Vol] 0.00 10*3/uL [facility] Nucleated RBC/100 WBC (Bld) [Ratio] 0.0 % [facility] Platelet mean volume (Bld) [Entitic vol] 10.6 fL 9.4 - 12.4 fL [facility] Platelets (Bld) [#/Vol] 279 10*3/uL [facility] RBC (Bld) [#/Vol] 2.68 10*6/uL Low [facility] eah WBC (Bld) [#/Vol] 7.28 10*3/uL [facility] Glucose (Bld) [Mass/Vol]Orde red By: Bryce Alvarez on 05-07-2021 Glucose [Mass/Vol] 145 mg/dL High 65 - 99 mg/dL [facility] Interpretation and review of laboratory results Abnormal [facility] Glucose [Mass/Vol] 72 mg/dL 65 - 99 mg/dL [facility] Interpretation and review of laboratory results Normal [facility] Glucose [Mass/Vol] 170 mg/dL High 65 - 99 mg/dL [facility] Interpretation and review of laboratory results Abnormal [facility] Glucose [Mass/Vol] 82 mg/dL 65 - 99 mg/dL [facility] Interpretation and review of laboratory results Normal [facility] Glucose [Mass/Vol] 93 mg/dL 65 - 99 mg/dL [facility] Interpretation and review of laboratory results Normal [facility] Hepatic function 2000 panelO rdered By: Bryce Alvarez on 05-07-2021 Albumin [Mass/Vol] 2.7 g/dL Low 3.2 - 5.2 g/dL [facility] ALP [Catalytic activity/Vol] 164 U/L High 40 - 150 U/L [facility] ALT [Catalytic activity/Vol] 30 U/L 14 - 65 U/L [facility] AST [Catalytic activity/Vol] 24 U/L 0 - 45 U/L [facility] Bilirubin [Mass/Vol] 0.2 mg/dL 0.0 - 1 .3 mg/dL [facility] Bilirubin.conjugated [Mass/Vol] 0.1 mg/dL 0.0 - 0.4 mg/dL [facility] Interpretation and review of laboratory results Abnormal [facility] Protein [Mass/Vol] 6.7 g/dL 6.0 - 8.0 g/dL [facility] Magnesium LevelOrdered By: Elton Alvarez on 05-07-2021 Magnesium [Mass/Vol] 2.0 mg/dL 1.6 - 2 .4 mg/dL [facility] Magnesium [Mass/Vol]Ordered By: Bryce Alvarez on 05-07-2021 Interpretation and review of laboratory results Normal [facility] RADIOLOGY SCANSOrdered By: Cyndy Morales on 05-07-2021 Ordered by an unspecified provider. [facility] Glucose (Bld) [Mass/Vol]Orde red By: Bryce Alvarez on 05-06-2021 Glucose [Mass/Vol] 96 mg/dL 65 - 99 mg/dL [facility] Interpretation and review of laboratory results Normal [facility] Glucose [Mass/Vol] 107 mg/dL High 65 - 99 mg/dL [facility] Interpretation and review of laboratory results Abnormal [facility] Glucose [Mass/Vol] 104 mg/dL High 65 - 99 mg/dL [facility] Interpretation and review of laboratory results Abnormal [facility] Glucose [Mass/Vol] 73 mg/dL 65 - 99 mg/dL [facility] Interpretation and review of laboratory results Normal [facility] Basic metabolic 2000 panelOr dered By: Bryce Alvarez on 05-05-2021 Anion gap [Moles/Vol] 10 mmol/L 10 - 2 0 mmol/L [facility] Calcium [Mass/Vol] 8.9 mg/dL 8.4 - 10. 2 mg/dL [facility] Chloride [Moles/Vol] 109 mmol/L High 98 - 10 8 mmol/L [facility] Creatinine [Mass/Vol] 1.52 mg/dL High 0.80 - 1.30 [facility] GFR/1.73 sq M.predicted CKD-EPI (S/P/Bld) [Vol rate/Area] 45 Low >=60 mL/min/1.73 m2 [facility] Glucose [Mass/Vol] 122 mg/dL High 65 - 99 mg/dL [facility] HCO3 [Moles/Vol] 26 mmol/L 21 - 32 mmol/L [facility] Interpretation and review of laboratory results Abnormal [facility] Potassium [Moles/Vol] 4.7 mmol/L 3.5 - 5.1 mmol/L [facility] Sodium [Moles/Vol] 140 mmol/L 135 - 145 mmol/L [facility] Urea nitrogen [Mass/Vol] 19 mg/dL 8 - 25 mg/dL [facility] Urea nitrogen/Creatinine [Mass ratio] 12.5 mg/mg [facility] The eGFR should be u sed for monitoring renal function only and not for medication dosing. [facility] CBC WITH AUTO DIFFERENTIALOr dered By: Bryce Alvarez on 05-05-2021 Basophils (Bld) [#/Vol] 0.06 10*3/uL [facility] Basophils/100 WBC (Bld) 0.7 % [facility] Eosinophils (Bld) [#/Vol] 0.34 10*3/uL [facility] Eosinophils/100 WBC (Bld) 3.9 % [facility] Erythrocyte distribution width (RBC) [Entitic vol] 14.4 % 11.6 - 14.8 % [facility] Hematocrit (Bld) [Volume fraction] 28.9 % Low 41.0 - 53.0 % [facility] Hemoglobin (Bld) [Mass/Vol] 9.2 g/dL Low 13.5 - 17.5 g/dL [facility] Immature granulocytes (Bld) [#/Vol] 0.10 10*3/uL [facility] Immature granulocytes/100 WBC (Bld) 1.10 % [facility] Comment on above: The IG parameter is the percentage of metamyelocytes, myelocytes and promyelocytes. An immature granulocyte count (IG) of 1% or more suggests the possibility of infection, an IG count of 3% is very likely related to an infection. Interpretation and review of laboratory results Abnormal [facility] Lymphocytes (Bld) [#/Vol] 2.30 10*3/uL [facility] Lymphocytes/100 WBC (Bld) 26.3 % [facility] MCH (RBC) [Entitic mass] 33.6 pg 26.0 - 34.0 pg [facility] MCHC (RBC) [Mass/Vol] 31.8 g/dL 31.0 - 37.0 g/dL [facility] MCV (RBC) [Entitic vol] 105.5 fL High 80.0 - 100.0 fL [facility] Monocytes (Bld) [#/Vol] 0.93 10*3/uL High [facility] Monocytes/100 WBC (Bld) 10.7 % [facility] Neutrophils (Bld) [#/Vol] 5.00 10*3/uL [facility] Neutrophils/100 WBC (Bld) 57.3 % [facility] Nucleated RBC (Bld) [#/Vol] 0.00 10*3/uL [facility] Nucleated RBC/100 WBC (Bld) [Ratio] 0.0 % [facility] Platelet mean volume (Bld) [Entitic vol] 11.1 fL 9.4 - 12.4 fL [facility] Platelets (Bld) [#/Vol] 294 10*3/uL [facility] RBC (Bld) [#/Vol] 2.74 10*6/uL Low [facility] WBC (Bld) [#/Vol] 8.73 10*3/uL [facility] Glucose (Bld) [Mass/Vol]Orde red By: Bryce Alvarez on 05-05-2021 Glucose [Mass/Vol] 90 mg/dL 65 - 99 mg/dL [facility] Interpretation and review of laboratory results Normal [facility] Glucose [Mass/Vol] 149 mg/dL High 65 - 99 mg/dL [facility] Interpretation and review of laboratory results Abnormal [facility] Glucose [Mass/Vol] 98 mg/dL 65 - 99 mg/dL [facility] Interpretation and review of laboratory results Normal [facility] Glucose [Mass/Vol] 128 mg/dL High 65 - 99 mg/dL [facility] Interpretation and review of laboratory results Abnormal [facility] US RENAL AND BLADDEROrdered By: Bryce Alvarez on 05-05-2021 No hydronephrosis or nephrolithiasis. Nonspecific trace perinephric fluid. Moderate postvoid residual volume, 107 mL. [facility] Workstation ID: [id number] [facility] EXAMINATION: US RENAL AND BLADDER HISTORY: ORDERING [...] Moderate postvoid residual volume of 107 mL. [facility], Rad In Fu ji Speechq - 05/05/2021 [...] fluid. Moderate postvoid residual volume, 107 mL. [facility] Workstation ID: [id number] [facility] Basic metabolic 2000 panelOr dered By: Bryce Alvarez on 05-04-2021 Anion gap [Moles/Vol] 9 mmol/L Low 10 - 2 0 mmol/L [facility] Calcium [Mass/Vol] 9.0 mg/dL 8.4 - 10. 2 mg/dL [facility] Chloride [Moles/Vol] 112 mmol/L High 98 - 10 8 mmol/L [facility] Creatinine [Mass/Vol] 1.56 mg/dL High 0.80 - 1.30 [facility] GFR/1.73 sq M.predicted CKD-EPI (S/P/Bld) [Vol rate/Area] 44 Low >=60 mL/min/1.73 m2 [facility] Glucose [Mass/Vol] 70 mg/dL 65 - 99 mg/dL [facility] Comment on above: [id number] CALLED ATTENT ION RESULT ON 05/04/2021 @ 0620 TO AND READ BACK BY [id number] in [facility] HCO3 [Moles/Vol] 25 mmol/L 21 - 32 mmol/L [facility] Interpretation and review of laboratory results Abnormal [facility] Potassium [Moles/Vol] 4.5 mmol/L 3.5 - 5.1 mmol/L [facility] Sodium [Moles/Vol] 141 mmol/L 135 - 145 mmol/L [facility] Urea nitrogen [Mass/Vol] 19 mg/dL 8 - 25 mg/dL [facility] Urea nitrogen/Creatinine [Mass ratio] 12.2 mg/mg [facility] The eGFR should be u sed for monitoring renal function only and not for medication dosing. [facility] CBC WITH AUTO DIFFERENTIALOr dered By: Bryce Alvarez on 05-04-2021 Basophils (Bld) [#/Vol] 0.07 10*3/uL [facility] Basophils/100 WBC (Bld) 1.0 % [facility] Eosinophils (Bld) [#/Vol] 0.35 10*3/uL [facility] Eosinophils/100 WBC (Bld) 5.0 % [facility] Erythrocyte distribution width (RBC) [Entitic vol] 14.3 % 11.6 - 14.8 % [facility] Hematocrit (Bld) [Volume fraction] 27.9 % Low 41.0 - 53.0 % [facility] Hemoglobin (Bld) [Mass/Vol] 8.9 g/dL Low 13.5 - 17.5 g/dL [facility] Immature granulocytes (Bld) [#/Vol] 0.10 10*3/uL [facility] Immature granulocytes/100 WBC (Bld) 1.40 % [facility] Comment on above: The IG parameter is the percentage of metamyelocytes, myelocytes and promyelocytes. An immature granulocyte count (IG) of 1% or more suggests the possibility of infection, an IG count of 3% is very likely related to an infection. Interpretation and review of laboratory results Abnormal [facility] Lymphocytes (Bld) [#/Vol] 2.57 10*3/uL [facility] Lymphocytes/100 WBC (Bld) 36.7 % [facility] MCH (RBC) [Entitic mass] 33.6 pg 26.0 - 34.0 pg [facility] MCHC (RBC) [Mass/Vol] 31.9 g/dL 31.0 - 37.0 g/dL [facility] MCV (RBC) [Entitic vol] 105.3 fL High 80.0 - 100.0 fL [facility] Monocytes (Bld) [#/Vol] 0.92 10*3/uL High [facility] Monocytes/100 WBC (Bld) 13.1 % [facility] Neutrophils (Bld) [#/Vol] 2.99 10*3/uL [facility] Neutrophils/100 WBC (Bld) 42.8 % [facility] Nucleated RBC (Bld) [#/Vol] 0.00 10*3/uL [facility] Nucleated RBC/100 WBC (Bld) [Ratio] 0.0 % [facility] Platelet mean volume (Bld) [Entitic vol] 10.9 fL 9.4 - 12.4 fL [facility] Platelets (Bld) [#/Vol] 276 10*3/uL [facility] RBC (Bld) [#/Vol] 2.65 10*6/uL Low [facility] WBC (Bld) [#/Vol] 7.00 10*3/uL [facility] Glucose (Bld) [Mass/Vol]Orde red By: Bryce Alvarez on 05-04-2021 Glucose [Mass/Vol] 180 mg/dL High 65 - 99 mg/dL [facility] Interpretation and review of laboratory results Abnormal [facility] Glucose [Mass/Vol] 121 mg/dL High 65 - 99 mg/dL [facility] Interpretation and review of laboratory results Abnormal [facility] Glucose [Mass/Vol] 76 mg/dL 65 - 99 mg/dL [facility] Interpretation and review of laboratory results Normal [facility] Basic metabolic 2000 panelOr dered By: Bryce Alvarez on 05-03-2021 Anion gap [Moles/Vol] 15 mmol/L 10 - 2 0 mmol/L [facility] Calcium [Mass/Vol] 9.0 mg/dL 8.4 - 10. 2 mg/dL [facility] Chloride [Moles/Vol] 110 mmol/L High 98 - 10 8 mmol/L [facility] Creatinine [Mass/Vol] 1.56 mg/dL High 0.80 - 1.30 [facility] GFR/1.73 sq M.predicted CKD-EPI (S/P/Bld) [Vol rate/Area] 44 Low >=60 mL/min/1.73 m2 [facility] Glucose [Mass/Vol] 76 mg/dL 65 - 99 mg/dL [facility] HCO3 [Moles/Vol] 21 mmol/L 21 - 32 mmol/L [facility] Interpretation and review of laboratory results Abnormal [facility] Potassium [Moles/Vol] 4.7 mmol/L 3.5 - 5.1 mmol/L [facility] Sodium [Moles/Vol] 141 mmol/L 135 - 145 mmol/L [facility] Urea nitrogen [Mass/Vol] 19 mg/dL 8 - 25 mg/dL [facility] Urea nitrogen/Creatinine [Mass ratio] 12.2 mg/mg [facility] The eGFR should be u sed for monitoring renal function only and not for medication dosing. [facility] Creatinine [Mass/Vol]Ordered By: Melissa Collins on 05-03-2021 GFR/1.73 sq M.predicted CKD-EPI (S/P/Bld) [Vol rate/Area] 44 Low >=60 mL/min/1.73 m2 [facility] Interpretation and review of laboratory results Abnormal [facility] The eGFR should be u sed for monitoring renal function only and not for medication dosing. [facility] Creatinine, serumOrdered By: Melissa Collins on 05-03-2021 Creatinine [Mass/Vol] 1.56 mg/dL High 0.80 - 1.30 [facility] Glucose (Bld) [Mass/Vol]Orde red By: Bryce Alvarez on 05-03-2021 Glucose [Mass/Vol] 139 mg/dL High 65 - 99 mg/dL [facility] Interpretation and review of laboratory results Abnormal [facility] Glucose [Mass/Vol] 178 mg/dL High 65 - 99 mg/dL [facility] Interpretation and review of laboratory results Abnormal [facility] Glucose [Mass/Vol] 108 mg/dL High 65 - 99 mg/dL [facility] Interpretation and review of laboratory results Abnormal [facility] Glucose [Mass/Vol] 82 mg/dL 65 - 99 mg/dL [facility] Interpretation and review of laboratory results Normal [facility] Magnesium LevelOrdered By: Elton Alvarez on 05-03-2021 Magnesium [Mass/Vol] 1.8 mg/dL 1.6 - 2 .4 mg/dL [facility] Magnesium [Mass/Vol]Ordered By: Bryce Alvarez on 05-03-2021 Interpretation and review of laboratory results Normal [facility] RADIOLOGY SCANSOrdered By: Cyndy [employer] on 05-03-2021 Ordered by an unspecified provider. [facility] Vancomycin Level, RandomOrde red By: Melissa Collins on 05-03-2021 Vancomycin [Mass/Vol] 11.6 mcg/mL [facility] Vancomycin [Mass/Vol]Ordered By: Ahgisella Mosalem on 05-03-2021 No established refer ence range. [facility] Bacteria identified Aer cx N om (Unsp spec)Ordered By: Bryce Alvarez on 05-02-2021 [facility] Bacteria identified Cx Nom ( Bld)Ordered By: Geraldine Reilly on 05-02-2021 [facility] Blood Culture #1Ordered By: Geraldine Reilly on 05-02-2021 Bacteria identified Cx Nom (Bld) No Growth After 5 [facility] Blood Culture #2Ordered By: Geraldine Reilly on 05-02-2021 Bacteria identified Cx Nom (Bld) No Growth After 5 Days [facility] Creatinine [Mass/Vol]Ordered By: Melissa Collins on 05-02-2021 GFR/1.73 sq M.predicted CKD-EPI (S/P/Bld) [Vol rate/Area] 55 Low >=60 mL/min/1.73 m2 [facility] Interpretation and review of laboratory results Abnormal [facility] The eGFR should be u sed for monitoring renal function only and not for medication dosing. [facility] Creatinine, serumOrdered By: Melissa Collins on 05-02-2021 Creatinine [Mass/Vol] 1.30 mg/dL 0.80 - 1.30 [facility] Glucose (Bld) [Mass/Vol]Orde red By: Bryce Alvarez on 05-02-2021 Glucose [Mass/Vol] 137 mg/dL High 65 - 99 mg/dL [facility] Interpretation and review of laboratory results Abnormal [facility] Glucose [Mass/Vol] 111 mg/dL High 65 - 99 mg/dL [facility] Interpretation and review of laboratory results Abnormal [facility] Glucose [Mass/Vol] 84 mg/dL 65 - 99 mg/dL [facility] Interpretation and review of laboratory results Normal [facility] Glucose [Mass/Vol] 78 mg/dL 65 - 99 mg/dL [facility] Interpretation and review of laboratory results Normal [facility] Magnesium LevelOrdered By: Bere Collins on 05-02-2021 Magnesium [Mass/Vol] 1.7 mg/dL 1.6 - 2 .4 mg/dL [facility] Magnesium [Mass/Vol]Ordered By: Melissa Collins on 05-02-2021 Interpretation and review of laboratory results Normal [facility] No Panel InformationOrdered By: Don Pennington on 05-02-2021 1. Open reduction an d internal fixation of acute comminuted right-sided intertrochanteric fracture with short intramedullary zeb and screws with satisfactory alignment. 2. 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 3. Negative for distal femoral fracture deformity. [facility] Workstation ID: [id number] [facility] EXAMINATION: XR HIP RIGHT 2-3 VIEWS (ROUTINE); [...] well profiled. There are changes from atherosclerosis. [facility], Rad In Fu ji Speechq - 05/02/2021 [...] 3. Negative for distal femoral fracture deformity. [employer] Workstation ID: [id number] [facility] RADIOLOGY SCANSOrdered By: [employer] on 05-02-2021 Ordered by an unspecified provider. [facility] Urine Aerobic CultureOrdered By: Bryce Alvarez on 05-02-2021 Bacteria identified Aer cx Nom (Unsp spec) No Growth (<1,000 CFU/mL) [facility] Basic metabolic 2000 panelOr dered By: Bryce Alvarez on 05-01-2021 Anion gap [Moles/Vol] 10 mmol/L 10 - 2 0 mmol/L [facility] Calcium [Mass/Vol] 9.0 mg/dL 8.4 - 10. 2 mg/dL [facility] Chloride [Moles/Vol] 112 mmol/L High 98 - 10 8 mmol/L [facility] Creatinine [Mass/Vol] 1.42 mg/dL High 0.80 - 1.30 [facility] GFR/1.73 sq M.predicted CKD-EPI (S/P/Bld) [Vol rate/Area] 49 Low >=60 mL/min/1.73 m2 [facility] Glucose [Mass/Vol] 90 mg/dL 65 - 99 mg/dL [facility] HCO3 [Moles/Vol] 25 mmol/L 21 - 32 mmol/L [facility] Interpretation and review of laboratory results Abnormal [facility] Potassium [Moles/Vol] 4.5 mmol/L 3.5 - 5.1 mmol/L [facility] Sodium [Moles/Vol] 142 mmol/L 135 - 145 mmol/L [facility] Urea nitrogen [Mass/Vol] 14 mg/dL 8 - 25 mg/dL [facility] Urea nitrogen/Creatinine [Mass ratio] 9.9 mg/mg Low [facility] The eGFR should be u sed for monitoring renal function only and not for medication dosing. [facility] CBC WITH AUTO DIFFERENTIALOr dered By: Bryce Alvarez on 05-01-2021 Basophils (Bld) [#/Vol] 0.04 10*3/uL [facility] Basophils/100 WBC (Bld) 0.7 % [facility] Eosinophils (Bld) [#/Vol] 0.48 10*3/uL [facility] Eosinophils/100 WBC (Bld) 8.2 % [facility] Erythrocyte distribution width (RBC) [Entitic vol] 14.0 % 11.6 - 14.8 % [facility] Hematocrit (Bld) [Volume fraction] 27.4 % Low 41.0 - 53.0 % [facility] Hemoglobin (Bld) [Mass/Vol] 8.7 g/dL Low 13.5 - 17.5 g/dL [facility] Immature granulocytes (Bld) [#/Vol] 0.05 10*3/uL [facility] Immature granulocytes/100 WBC (Bld) 0.90 % [facility] Comment on above: The IG parameter is the percentage of metamyelocytes, myelocytes and promyelocytes. An immature granulocyte count (IG) of 1% or more suggests the possibility of infection, an IG count of 3% is very likely related to an infection. Interpretation and review of laboratory results Abnormal [facility] Lymphocytes (Bld) [#/Vol] 2.13 10*3/uL [facility] Lymphocytes/100 WBC (Bld) 36.3 % [facility] MCH (RBC) [Entitic mass] 33.5 pg 26.0 - 34.0 pg [facility] MCHC (RBC) [Mass/Vol] 31.8 g/dL 31.0 - 37.0 g/dL [facility] MCV (RBC) [Entitic vol] 105.4 fL High 80.0 - 100.0 fL [facility] Monocytes (Bld) [#/Vol] 0.78 10*3/uL [facility] Monocytes/100 WBC (Bld) 13.3 % [facility] Neutrophils (Bld) [#/Vol] 2.38 10*3/uL [facility] Neutrophils/100 WBC (Bld) 40.6 % [facility] Nucleated RBC (Bld) [#/Vol] 0.00 10*3/uL [facility] Nucleated RBC/100 WBC (Bld) [Ratio] 0.0 % [facility] Platelet mean volume (Bld) [Entitic vol] 10.5 fL 9.4 - 12.4 fL [facility] Platelets (Bld) [#/Vol] 298 10*3/uL [facility] RBC (Bld) [#/Vol] 2.60 10*6/uL Low [facility] WBC (Bld) [#/Vol] 5.86 10*3/uL [facility] Glucose (Bld) [Mass/Vol]Orde red By: Bryce Alvarez on 05-01-2021 Glucose [Mass/Vol] 212 mg/dL High 65 - 99 mg/dL [facility] Interpretation and review of laboratory results Abnormal [facility] Glucose [Mass/Vol] 151 mg/dL High 65 - 99 mg/dL [facility] Interpretation and review of laboratory results Abnormal [facility] Glucose [Mass/Vol] 220 mg/dL High 65 - 99 mg/dL [facility] Interpretation and review of laboratory results Abnormal [facility] Glucose [Mass/Vol] 95 mg/dL 65 - 99 mg/dL [facility] Interpretation and review of laboratory results Normal [facility] Hepatic function 2000 panelO rdered By: Bryce Alvarez on 05-01-2021 Albumin [Mass/Vol] 2.6 g/dL Low 3.2 - 5.2 g/dL [facility] ALP [Catalytic activity/Vol] 190 U/L High 40 - 150 U/L [facility] ALT [Catalytic activity/Vol] 39 U/L 14 - 65 U/L [facility] AST [Catalytic activity/Vol] 22 U/L 0 - 45 U/L [facility] Bilirubin [Mass/Vol] 0.3 mg/dL 0.0 - 1 .3 mg/dL [facility] Bilirubin.conjugated [Mass/Vol] mg/dL 0.0 - 0.4 mg/dL [facility] Interpretation and review of laboratory results Abnormal [facility] Protein [Mass/Vol] 6.7 g/dL 6.0 - 8.0 g/dL [facility] Magnesium LevelOrdered By: Bere [employer] on 05-01-2021 Magnesium [Mass/Vol] 2.1 mg/dL 1.6 - 2 .4 mg/dL [facility] Magnesium [Mass/Vol]Ordered By: Melissa Collins on 05-01-2021 Interpretation and review of laboratory results Normal [facility] Bacteria identified Aer cx N om (Unsp spec)Ordered By: Geraldine Reilly on 04-30-2021 Interpretation and review of laboratory results Abnormal [facility] See susceptibility f rom same source/different date: 04/27/21 [facility] Bacteria identified Aer cx N om (Unsp spec)Ordered By: Lev Desai on 04-30-2021 Interpretation and review of laboratory results Abnormal [facility] See susceptibility f rom same source/same date. [facility] Basic metabolic 2000 panelOr dered By: Bryce Alvarez on 04-30-2021 Anion gap [Moles/Vol] 13 mmol/L 10 - 2 0 mmol/L [facility] Calcium [Mass/Vol] 8.8 mg/dL 8.4 - 10. 2 mg/dL [facility] Chloride [Moles/Vol] 115 mmol/L High 98 - 10 8 mmol/L [facility] Creatinine [Mass/Vol] 1.58 mg/dL High 0.80 - 1.30 [facility] GFR/1.73 sq M.predicted CKD-EPI (S/P/Bld) [Vol rate/Area] 43 Low >=60 mL/min/1.73 m2 [facility] Glucose [Mass/Vol] 84 mg/dL 65 - 99 mg/dL [facility] HCO3 [Moles/Vol] 20 mmol/L Low 21 - 32 mmol/L [facility] Interpretation and review of laboratory results Abnormal [facility] Potassium [Moles/Vol] 3.9 mmol/L 3.5 - 5.1 mmol/L [facility] Sodium [Moles/Vol] 144 mmol/L 135 - 145 mmol/L [facility] Urea nitrogen [Mass/Vol] 18 mg/dL 8 - 25 mg/dL [facility] Urea nitrogen/Creatinine [Mass ratio] 11.4 mg/mg [facility] The eGFR should be u sed for monitoring renal function only and not for medication dosing. [facility] CBC WITH AUTO DIFFERENTIALOr dered By: Bryce Alvarez on 04-30-2021 Basophils (Bld) [#/Vol] 0.05 10*3/uL [facility] Basophils/100 WBC (Bld) 0.8 % [facility] Eosinophils (Bld) [#/Vol] 0.38 10*3/uL [facility] Eosinophils/100 WBC (Bld) 5.8 % [facility] Erythrocyte distribution width (RBC) [Entitic vol] 13.8 % 11.6 - 14.8 % [facility] Hematocrit (Bld) [Volume fraction] 25.3 % Low 41.0 - 53.0 % [facility] Hemoglobin (Bld) [Mass/Vol] 8.4 g/dL Low 13.5 - 17.5 g/dL [facility] Immature granulocytes (Bld) [#/Vol] 0.06 10*3/uL [facility] Immature granulocytes/100 WBC (Bld) 0.90 % [facility] Comment on above: The IG parameter is the percentage of metamyelocytes, myelocytes and promyelocytes. An immature granulocyte count (IG) of 1% or more suggests the possibility of infection, an IG count of 3% is very likely related to an infection. Interpretation and review of laboratory results Abnormal [facility] Lymphocytes (Bld) [#/Vol] 2.00 10*3/uL [facility] Lymphocytes/100 WBC (Bld) 30.3 % [facility] MCH (RBC) [Entitic mass] 34.3 pg High 26.0 - 34.0 pg [facility] MCHC (RBC) [Mass/Vol] 33.2 g/dL 31.0 - 37.0 g/dL [facility] MCV (RBC) [Entitic vol] 103.3 fL High 80.0 - 100.0 fL [facility] Monocytes (Bld) [#/Vol] 0.85 10*3/uL [facility] Monocytes/100 WBC (Bld) 12.9 % [facility] Neutrophils (Bld) [#/Vol] 3.25 10*3/uL [facility] Neutrophils/100 WBC (Bld) 49.3 % [facility] Nucleated RBC (Bld) [#/Vol] 0.00 10*3/uL [facility] Nucleated RBC/100 WBC (Bld) [Ratio] 0.0 % [facility] Platelet mean volume (Bld) [Entitic vol] 10.9 fL 9.4 - 12.4 fL [facility] Platelets (Bld) [#/Vol] 287 10*3/uL [facility] RBC (Bld) [#/Vol] 2.45 10*6/uL Low [facility] WBC (Bld) [#/Vol] 6.59 10*3/uL [facility] Glucose (Bld) [Mass/Vol]Orde red By: Bryce Alvarez on 04-30-2021 Glucose [Mass/Vol] 175 mg/dL High 65 - 99 mg/dL [facility] Interpretation and review of laboratory results Abnormal [facility] Glucose [Mass/Vol] 73 mg/dL 65 - 99 mg/dL [facility] Interpretation and review of laboratory results Normal [facility] Glucose [Mass/Vol] 211 mg/dL High 65 - 99 mg/dL [facility] Interpretation and review of laboratory results Abnormal [facility] Glucose [Mass/Vol] 97 mg/dL 65 - 99 mg/dL [facility] Interpretation and review of laboratory results Normal [facility] Hepatic function 2000 panelO rdered By: Bryce Alvarez on 04-30-2021 Albumin [Mass/Vol] 2.5 g/dL Low 3.2 - 5.2 g/dL [facility] ALP [Catalytic activity/Vol] 178 U/L High 40 - 150 U/L [facility] ALT [Catalytic activity/Vol] 42 U/L 14 - 65 U/L [facility] AST [Catalytic activity/Vol] 38 U/L 0 - 45 U/L [facility] Bilirubin [Mass/Vol] 0.3 mg/dL 0.0 - 1 .3 mg/dL [facility] Bilirubin.conjugated [Mass/Vol] mg/dL 0.0 - 0.4 mg/dL [facility] Interpretation and review of laboratory results Abnormal [facility] Protein [Mass/Vol] 6.4 g/dL 6.0 - 8.0 g/dL [facility] Magnesium LevelOrdered By: Elton Alvarez on 04-30-2021 Magnesium [Mass/Vol] 1.4 mg/dL Low 1.6 - 2 .4 mg/dL [facility] Magnesium [Mass/Vol]Ordered By: Bryce Alvarez on 04-30-2021 Interpretation and review of laboratory results Abnormal [facility] Urine Aerobic CultureOrdered By: Geraldine Reilly on 04-30-2021 Bacteria identified Aer cx Nom (Unsp spec) 50,000-100,000 CFU/mL Staphylococcus aureus Abnormal [facility] Bacteria identified Aer cx Nom (Unsp spec) 50,000-100,000 CFU/mL Enterococcus faecalis Abnormal [facility] Comment on above: Cephalosporins as a class do not have activity against Enterococcus species Bacteria identified Aer cx Nom (Unsp spec) 10,000-49,000 CFU/mL Presumptive Nia albicans Abnormal [facility] Urine Aerobic CultureOrdered By: Lev Desai on 04-30-2021 Bacteria identified Aer cx Nom (Unsp spec) >100,000 CFU/mL Staphylococcus aureus Abnormal [facility] Bacteria identified Aer cx Nom (Unsp spec) 50,000-100,000 CFU/mL Enterococcus faecalis Abnormal [facility] Comment on above: Cephalosporins as a class do not have activity against Enterococcus species Bacteria identified Aer cx Nom (Unsp spec) 50,000-100,000 CFU/mL Presumptive Nia albicans Abnormal [facility] Basic metabolic 1998 panelOr dered By: Melissa Collins on 04-29-2021 Anion gap [Moles/Vol] 12 mmol/L 10 - 2 0 mmol/L [facility] Chloride [Moles/Vol] 113 mmol/L High 98 - 10 8 mmol/L [facility] Creatinine [Mass/Vol] 1.77 mg/dL High 0.80 - 1.30 [facility] GFR/1.73 sq M.predicted CKD-EPI (S/P/Bld) [Vol rate/Area] 38 Low >=60 mL/min/1.73 m2 [facility] Glucose [Mass/Vol] 83 mg/dL 65 - 99 mg/dL [facility] HCO3 [Moles/Vol] 21 mmol/L 21 - 32 mmol/L [facility] Interpretation and review of laboratory results Abnormal [facility] Potassium [Moles/Vol] 4.4 mmol/L 3.5 - 5.1 mmol/L [facility] Sodium [Moles/Vol] 142 mmol/L 135 - 145 mmol/L [facility] Urea nitrogen [Mass/Vol] 25 mg/dL 8 - 25 mg/dL [facility] Urea nitrogen/Creatinine [Mass ratio] 14.1 mg/mg [facility] The eGFR should be u sed for monitoring renal function only and not for medication dosing. [facility] Glucose (Bld) [Mass/Vol]Orde red By: Bryce Alvarez on 04-29-2021 Glucose [Mass/Vol] 126 mg/dL High 65 - 99 mg/dL [facility] Interpretation and review of laboratory results Abnormal [facility] Glucose [Mass/Vol] 232 mg/dL High 65 - 99 mg/dL [facility] Interpretation and review of laboratory results Abnormal [facility] Glucose [Mass/Vol] 84 mg/dL 65 - 99 mg/dL [facility] Interpretation and review of laboratory results Normal [facility] Glucose (Bld) [Mass/Vol]Orde red By: Geraldine Reilly on 04-29-2021 Glucose [Mass/Vol] 99 mg/dL 65 - 99 mg/dL [facility] Interpretation and review of laboratory results Normal [facility] CBC WITH AUTO DIFFERENTIALOr dered By: Geraldine Reilly on 04-28-2021 Basophils (Bld) [#/Vol] 0.04 10*3/uL [facility] Basophils/100 WBC (Bld) 0.5 % [facility] Eosinophils (Bld) [#/Vol] 0.37 10*3/uL [facility] Eosinophils/100 WBC (Bld) 4.2 % [facility] Erythrocyte distribution width (RBC) [Entitic vol] 14.4 % 11.6 - 14.8 % [facility] Hematocrit (Bld) [Volume fraction] 28.0 % Low 41.0 - 53.0 % [facility] Hemoglobin (Bld) [Mass/Vol] 9.0 g/dL Low 13.5 - 17.5 g/dL [facility] Immature granulocytes (Bld) [#/Vol] 0.06 10*3/uL [facility] Immature granulocytes/100 WBC (Bld) 0.70 % [facility] Comment on above: The IG parameter is the percentage of metamyelocytes, myelocytes and promyelocytes. An immature granulocyte count (IG) of 1% or more suggests the possibility of infection, an IG count of 3% is very likely related to an infection. Interpretation and review of laboratory results Abnormal [facility] Lymphocytes (Bld) [#/Vol] 1.95 10*3/uL [facility] Lymphocytes/100 WBC (Bld) 22.0 % [facility] MCH (RBC) [Entitic mass] 34.1 pg High 26.0 - 34.0 pg [facility] MCHC (RBC) [Mass/Vol] 32.1 g/dL 31.0 - 37.0 g/dL [facility] MCV (RBC) [Entitic vol] 106.1 fL High 80.0 - 100.0 fL [facility] Monocytes (Bld) [#/Vol] 0.99 10*3/uL High [facility] Monocytes/100 WBC (Bld) 11.2 % [facility] Neutrophils (Bld) [#/Vol] 5.45 10*3/uL [facility] Neutrophils/100 WBC (Bld) 61.4 % [facility] Nucleated RBC (Bld) [#/Vol] 0.00 10*3/uL [facility] Nucleated RBC/100 WBC (Bld) [Ratio] 0.0 % [facility] Platelet mean volume (Bld) [Entitic vol] 10.7 fL 9.4 - 12.4 fL [facility] Platelets (Bld) [#/Vol] 318 10*3/uL [facility] RBC (Bld) [#/Vol] 2.64 10*6/uL Low [facility] eah WBC (Bld) [#/Vol] 8.86 10*3/uL [facility] Glucose (Bld) [Mass/Vol]Orde red By: Geraldine Reilly on 04-28-2021 Glucose [Mass/Vol] 181 mg/dL High 65 - 99 mg/dL [facility] Interpretation and review of laboratory results Abnormal [facility] Glucose [Mass/Vol] 62 mg/dL Low 65 - 99 mg/dL [facility] Interpretation and review of laboratory results Abnormal [facility] Glucose [Mass/Vol] 201 mg/dL High 65 - 99 mg/dL [facility] Interpretation and review of laboratory results Abnormal [facility] Glucose [Mass/Vol] 132 mg/dL High 65 - 99 mg/dL [facility] Interpretation and review of laboratory results Abnormal [facility] Glucose [Mass/Vol] 114 mg/dL High 65 - 99 mg/dL [facility] Interpretation and review of laboratory results Abnormal [facility] HbA1c (Bld) [Mass fraction]O rdered By: Geraldine Reilly on 04-28-2021 Average glucose Estimated from glycated hemoglobin (Bld) [Mass/Vol] 137 mg/dL High 68 - 114 mg/dL [facility] Interpretation and review of laboratory results Abnormal [facility] Normal: 4.0% - 5.6% Increased risk for diabetes: 5.7% - 6.4% Diabetes: >= 6.5% Pediatrics: No established reference range Estimated average glucose: 68-114 mg/dL [facility] Hemoglobin [id number] By: Estephania Reilly on 04-28-2021 HbA1c (Bld) [Mass fraction] 6.4 % High 4.0 - 5.6 % [facility] MagnesiumOrdered By: Jozef Reilly on 04-28-2021 Magnesium [Mass/Vol] 1.4 mg/dL Low 1.6 - 2 .4 mg/dL [facility] Magnesium [Mass/Vol]Ordered By: Geraldine Reilly on 04-28-2021 Interpretation and review of laboratory results Abnormal [facility] [place] TopOrdered By: Estephania Desai on 04-28-2021 Extra Tube Hold for add-ons. [facility] Comment on above: Auto resulted. [facility] Renal function 2000 panelOrd ered By: Geraldine Reilly on 04-28-2021 Albumin [Mass/Vol] 2.6 g/dL Low 3.2 - 5.2 g/dL [facility] Anion gap [Moles/Vol] 11 mmol/L 10 - 2 0 mmol/L [facility] Calcium [Mass/Vol] 9.0 mg/dL 8.4 - 10. 2 mg/dL [facility] Chloride [Moles/Vol] 109 mmol/L High 98 - 10 8 mmol/L [facility] Creatinine [Mass/Vol] 1.94 mg/dL High 0.80 - 1.30 [facility] GFR/1.73 sq M.predicted CKD-EPI (S/P/Bld) [Vol rate/Area] 34 Low >=60 mL/min/1.73 m2 [facility] Glucose [Mass/Vol] 98 mg/dL 65 - 99 mg/dL [facility] HCO3 [Moles/Vol] 23 mmol/L 21 - 32 mmol/L [facility] Interpretation and review of laboratory results Abnormal [facility] Phosphate [Mass/Vol] 4.2 mg/dL High 2.3 - 3 .7 mg/dL [facility] Potassium [Moles/Vol] 4.8 mmol/L 3.5 - 5.1 mmol/L [facility] Sodium [Moles/Vol] 138 mmol/L 135 - 145 mmol/L [facility] Urea nitrogen [Mass/Vol] 41 mg/dL High 8 - 25 mg/dL [facility] Urea nitrogen/Creatinine [Mass ratio] 21.1 mg/mg High [facility] The eGFR should be u sed for monitoring renal function only and not for medication dosing. [facility] TSH DL <= 0.005 mIU/L QnOrde red By: Geraldine Reilly on 04-28-2021 Interpretation and review of laboratory results Normal [facility] TSH Qn 1.56 m[IU]/L [facility] URINALYSISOrdered By: Sheldon Husaineen on 04-28-2021 Bacteria Auto Ql (U) Rare Abnormal None Se en /hpf [facility] Clarity Refractometry automated (U) Cloudy Abnormal Clear [facility] Color (U) Yellow Colorless, Yellow [facility] Glucose Auto test strip (U) [Mass/Vol] Negative Negative mg/dL [facility] Ketones (U) [Mass/Vol] Negative Negat dequan mg/dL [facility] Leukocyte esterase Auto test strip Ql (U) Large Abnormal Negative [facility] pH (U) 7.0 [pH] [facility] Specific gravity (U) [Rel density] 1.014 [facility] Bacteria Auto Ql (U) Rare Abnormal None Se en /hpf [facility] Clarity Refractometry automated (U) Clear Clear [facility] Color (U) Colorless Colorless, Yellow [facility] Glucose Auto test strip (U) [Mass/Vol] Negative Negative mg/dL [facility] Ketones (U) [Mass/Vol] Negative Negat dequan mg/dL [facility] Leukocyte esterase Auto test strip Ql (U) Small Abnormal Negative [facility] pH (U) 7.0 [pH] [facility] Specific gravity (U) [Rel density] 1.010 [facility] UrinalysisOrdered By: Sheldon alcaraz Tommie on 04-28-2021 Bilirubin Ql (U) Negative Negative [facility] th Epithelial cells.squamous Auto (Urine sed) [#/Area] <1 [facility] Hemoglobin Auto test strip Ql (U) Small Abnormal Negative [facility] Interpretation and review of laboratory results Abnormal [facility] Leukocyte clumps Auto (Urine sed) [#/Area] Many Abnormal None Seen /hpf [facility] Mucus Auto (Urine sed) [#/Area] Rare None Seen, Rare /lpf [facility] Nitrite Auto test strip Ql (U) Negative Negative [facility] Protein (U) [Mass/Vol] 30 mg/dL Abnormal Negat dequan mg/dL [facility] Comment on above: False positive resul ts may occur in urines with large amounts of hemoglobin, pH greater than 8.0, contrast medium, or disinfectants including ammonium compounds. RBC Auto (Urine sed) [#/Area] 35 High [facility] Urobilinogen (U) [Mass/Vol] mg/dL <2.0 mg/dL [facility] WBC Auto (Urine sed) [#/Area] 170 High [facility] Microscopic examinat ion is performed on all urinalysis samples and only positive findings are reported. The test for blood on the chemical analytic portion of urinalysis may also be positive due to hemoglobinuria and myoglobinuria and if red blood cells are present they are quantified by microscopic examination. [facility] Bilirubin Ql (U) Negative Negative [facility] Hemoglobin Auto test strip Ql (U) Negative Negative [facility] Hyaline casts Auto (Urine sed) [#/Area] 0-2 0 - 2 /lpf [facility] Interpretation and review of laboratory results Abnormal [facility] Mucus Auto (Urine sed) [#/Area] Rare None Seen, Rare /lpf [facility] Nitrite Auto test strip Ql (U) Negative Negative [facility] Protein (U) [Mass/Vol] Negative Negat dequan mg/dL [facility] RBC Auto (Urine sed) [#/Area] 1 [facility] Urobilinogen (U) [Mass/Vol] mg/dL <2.0 mg/dL [facility] WBC Auto (Urine sed) [#/Area] 21 High [facility] Yeast.budding Computer assisted (U) [#/Area] Few Abnormal None Seen /hpf [facility] Yeast.hyphae Computer assisted (U) [#/Area] Rare Abnormal None Seen /hpf [facility] Microscopic examinat ion is performed on all urinalysis samples and only positive findings are reported. The test for blood on the chemical analytic portion of urinalysis may also be positive due to hemoglobinuria and myoglobinuria and if red blood cells are present they are quantified by microscopic examination. [facility] Basic metabolic 1998 panelOr dered By: Lev Desai on 04-27-2021 Anion gap [Moles/Vol] 13 mmol/L 10 - 2 0 mmol/L [facility] Chloride [Moles/Vol] 113 mmol/L High 98 - 10 8 mmol/L [facility] Creatinine [Mass/Vol] 2.71 mg/dL High 0.80 - 1.30 [facility] GFR/1.73 sq M.predicted CKD-EPI (S/P/Bld) [Vol rate/Area] 22 Low >=60 mL/min/1.73 m2 [facility] Glucose [Mass/Vol] 118 mg/dL High 65 - 99 mg/dL [facility] HCO3 [Moles/Vol] 17 mmol/L Low 21 - 32 mmol/L [facility] Interpretation and review of laboratory results Abnormal [facility] Potassium [Moles/Vol] 7.5 mmol/L Critically high 3.5 - 5.1 mmol/L [facility] Sodium [Moles/Vol] 135 mmol/L 135 - 145 mmol/L [facility] Urea nitrogen [Mass/Vol] 47 mg/dL High 8 - 25 mg/dL [facility] Urea nitrogen/Creatinine [Mass ratio] 17.3 mg/mg [facility] The eGFR should be u sed for monitoring renal function only and not for medication dosing. [facility] Basic metabolic 2000 panelOr dered By: Geraldine Reilly on 04-27-2021 Anion gap [Moles/Vol] 10 mmol/L 10 - 2 0 mmol/L [facility] Calcium [Mass/Vol] 9.5 mg/dL 8.4 - 10. 2 mg/dL [facility] Chloride [Moles/Vol] 113 mmol/L High 98 - 10 8 mmol/L [facility] Creatinine [Mass/Vol] 2.55 mg/dL High 0.80 - 1.30 [facility] GFR/1.73 sq M.predicted CKD-EPI (S/P/Bld) [Vol rate/Area] 24 Low >=60 mL/min/1.73 m2 [facility] Glucose [Mass/Vol] 36 mg/dL Critically low 65 - 99 mg/dL [facility] HCO3 [Moles/Vol] 21 mmol/L 21 - 32 mmol/L [facility] Interpretation and review of laboratory results Abnormal [facility] Potassium [Moles/Vol] 5.4 mmol/L High 3.5 - 5.1 mmol/L [facility] Sodium [Moles/Vol] 139 mmol/L 135 - 145 mmol/L [facility] Urea nitrogen [Mass/Vol] 50 mg/dL High 8 - 25 mg/dL [facility] Urea nitrogen/Creatinine [Mass ratio] 19.6 mg/mg [facility] The eGFR should be u sed for monitoring renal function only and not for medication dosing. [facility] Beta hydroxybutyrate [Moles/ Vol]Ordered By: Geraldine Reilly on 04-27-2021 Interpretation and review of laboratory results Normal [facility] Beta-HydroxybutyrateOrdered By: Geraldine Reilly on 04-27-2021 Beta hydroxybutyrate [Moles/Vol] <0.1 0.0 - 0.3 mmol/L [facility] CBC WITH AUTO DIFFERENTIALOr dered By: Lev Desai on 04-27-2021 Basophils (Bld) [#/Vol] 0.05 10*3/uL [facility] Basophils/100 WBC (Bld) 0.4 % [facility] Eosinophils (Bld) [#/Vol] 0.37 10*3/uL [facility] Eosinophils/100 WBC (Bld) 3.3 % [facility] Erythrocyte distribution width (RBC) [Entitic vol] 14.6 % 11.6 - 14.8 % [facility] Hematocrit (Bld) [Volume fraction] 28.5 % Low 41.0 - 53.0 % [facility] Hemoglobin (Bld) [Mass/Vol] 9.1 g/dL Low 13.5 - 17.5 g/dL [facility] Immature granulocytes (Bld) [#/Vol] 0.08 10*3/uL [facility] Immature granulocytes/100 WBC (Bld) 0.70 % [facility] Comment on above: The IG parameter is the percentage of metamyelocytes, myelocytes and promyelocytes. An immature granulocyte count (IG) of 1% or more suggests the possibility of infection, an IG count of 3% is very likely related to an infection. Interpretation and review of laboratory results Abnormal [facility] Lymphocytes (Bld) [#/Vol] 1.89 10*3/uL [facility] Lymphocytes/100 WBC (Bld) 16.9 % [facility] MCH (RBC) [Entitic mass] 33.8 pg 26.0 - 34.0 pg [facility] MCHC (RBC) [Mass/Vol] 31.9 g/dL 31.0 - 37.0 g/dL [facility] MCV (RBC) [Entitic vol] 105.9 fL High 80.0 - 100.0 fL [facility] Monocytes (Bld) [#/Vol] 1.28 10*3/uL High [facility] Monocytes/100 WBC (Bld) 11.4 % [facility] Neutrophils (Bld) [#/Vol] 7.54 10*3/uL High [facility] Neutrophils/100 WBC (Bld) 67.3 % [facility] Nucleated RBC (Bld) [#/Vol] 0.00 10*3/uL [facility] Nucleated RBC/100 WBC (Bld) [Ratio] 0.0 % [facility] Platelet mean volume (Bld) [Entitic vol] 11.4 fL 9.4 - 12.4 fL [facility] Platelets (Bld) [#/Vol] 353 10*3/uL [facility] RBC (Bld) [#/Vol] 2.69 10*6/uL Low [facility] ealth WBC (Bld) [#/Vol] 11.21 10*3/uL High [facility] CK [Catalytic activity/Vol]O rdered By: Geraldine Reilly on 04-27-2021 Interpretation and review of laboratory results Abnormal [facility] CPK NO MBOrdered By: Jozef Reilly on 04-27-2021 CK [Catalytic activity/Vol] 26 U/L Low 60 - 225 U/L [facility] CRITICAL CAREOrdered By: Ildefonso Desai on 04-27-2021 [...] patient's condition and review of old charts. [facility] ECG 12-LEADOrdered By: Lev Desai on 04-27-2021 Atrial Rate 58 BPM [facility] P Mes[place] 65 degrees [facility] P-R Interval 182 ms [facility] Q-T Interval 398 ms [facility] QRS Duration 84 ms [facility] QTC Calculation (Bezet) 390 ms [facility] R [place] 67 degrees [facility] T [place] 77 degrees [facility] Ventricular Rate 58 BPM [facility] th Sinus bradycardia Otherwise normal ECG ECG Cart Interpretation see physician note for interpretation. Confirmed by Marita Cheng ([id number]) on 04/27/2021 5:26:31 PM [facility] Lev Desai MD 04/27/2021 5:33 PM ECG 12 Lead Date/Time: 04/27/2021 3:16 PM Performed by: Lev Desai MD Authorized by: Lev Desai MD Interpreted by ED attending physician Comparison: not compared with previous ECG Rhythm: sinus rhythm and sinus bradycardia BPM: 58 Conduction: conduction normal ST Segments: ST segments normal T Waves: T waves normal NE Interval: 182 QRS Interval: 84 QT Interval: 390 Clinical impression: sinus bradycardia [facility] EKGOrdered By: Chava Syst em on 04-27-2021 Ordered by an unspecified provider. [facility] Glucose (Bld) [Mass/Vol]Orde red By: Geraldine Reilly on 04-27-2021 Glucose [Mass/Vol] 135 mg/dL High 65 - 99 mg/dL [facility] Interpretation and review of laboratory results Abnormal [facility] Glucose (Bld) [Mass/Vol]Orde red By: Lev Desai on 04-27-2021 Glucose [Mass/Vol] 50 mg/dL Low 65 - 99 mg/dL [facility] Interpretation and review of laboratory results Abnormal [facility] Lactate [Moles/Vol]Ordered B y: Geraldine Reilly on 04-27-2021 Interpretation and review of laboratory results Abnormal [facility] Lactic Acid, PlasmaOrdered B y: Geraldine Reilly on 04-27-2021 Lactate [Moles/Vol] 2.1 mmol/L High 0.6 - 2. 0 mmol/L [facility] Lavender TopOrdered By: Isaac Desai on 04-27-2021 Extra Tube Hold for add-ons. [facility] Comment on above: Auto resulted. [facility] Magnesium LevelOrdered By: Allie Reilly on 04-27-2021 Magnesium [Mass/Vol] 1.5 mg/dL Low 1.6 - 2 .4 mg/dL [facility] Magnesium [Mass/Vol]Ordered By: Geraldine Reilly on 04-27-2021 Interpretation and review of laboratory results Abnormal [facility] Obtain venous blood gases an d performOrdered By: Lev Desai on 04-27-2021 [facility] POC Venous Blood Gas Panel-P ulmOrdered By: Lev Desai on 04-27-2021 Base excess Calc (BldV) [Moles/Vol] -8.1000 mmol/L Low [facility] Breath rate setting Ventilator synchronized intermittent mandatory 0 [facility] h CO2 (BldV) [Partial pressure] 39.2 mm[Hg] Low [facility] HCO3 (Bld) [Moles/Vol] 18.1 mmol/L Low 24.0 - 28.0 mmol/L [facility] Hematocrit (BldA) [Volume fraction] 29.2 % Low 41.0 - 53.0 % [facility] Hemoglobin (Bld) [Mass/Vol] 9.5 g/dL Low 13.5 - 17.5 g/dL [facility] Inhaled oxygen concentration 21 % [facility] Interpretation and review of laboratory results Abnormal [facility] Oxygen (BldV) [Partial pressure] 22 mm[Hg] Low [facility] Comment on above: Caution: pO2 referen ce ranges for some specimen types are lower than the measuring range of the instrument. Oxygen saturation in Venous blood 29.5 % Low 40.0 - 70.0 % [facility] pH (BldV) 7.27 [pH] Low [facility] Specimen source Nom (Unsp spec) Not specified [facility] Tidal volume setting Ventilator 0 [facility] Phosphate [Mass/Vol]Ordered By: Geraldine Reilly on 04-27-2021 Interpretation and review of laboratory results Abnormal [facility] PhosphorusOrdered By: Sheldon Reilly on 04-27-2021 Phosphate [Mass/Vol] 5.7 mg/dL High 2.3 - 3 .7 mg/dL [facility] Reflex Lactic Acid, PlasmaOr dered By: Geraldine Reilly on 04-27-2021 Interpretation and review of laboratory results Normal [facility] Lactate [Moles/Vol] 1.3 mmol/L 0.6 - 2. 0 mmol/L [facility] SARS-CoV-2 (COVID-19) RdRp g olivia BANDAR+probe Ql (Resp)Ordered By: Lev Desai on 04-27-2021 Interpretation and review of laboratory results Normal [facility] SARS-CoV-2 (COVID-19) RNA BANDAR+probe Ql (Resp) Not detected Not Detected [facility] This test was perfor med under the [...] the following links: For Healthcare Providers: https://www.fda.gov/medi a/920191/download For Patients: https://www.fda.gov/medi a/557323/download [facility] URINALYSISOrdered By: Lev Desai on 04-27-2021 Bacteria Auto Ql (U) Rare Abnormal None Se en /hpf [facility] Clarity Refractometry automated (U) Cloudy Abnormal Clear [facility] Color (U) Yellow Colorless, Yellow [facility] Glucose Auto test strip (U) [Mass/Vol] 50 Abnormal Negative mg/dL [facility] Ketones (U) [Mass/Vol] Negative Negat dequan mg/dL [facility] Leukocyte esterase Auto test strip Ql (U) Large Abnormal Negative [facility] pH (U) 5.5 [pH] [facility] Specific gravity (U) [Rel density] 1.015 [facility] UrinalysisOrdered By: Lev Desai on 04-27-2021 Bilirubin Ql (U) Negative Negative [facility] Epithelial cells.squamous Auto (Urine sed) [#/Area] <1 [facility] Hemoglobin Auto test strip Ql (U) Negative Negative [facility] Hyaline casts Auto (Urine sed) [#/Area] 6-10 Abnormal 0 - 2 /lpf [facility] Interpretation and review of laboratory results Abnormal [facility] Leukocyte clumps Auto (Urine sed) [#/Area] Rare Abnormal None Seen /hpf [facility] Mucus Auto (Urine sed) [#/Area] Rare None Seen, Rare /lpf [facility] Nitrite Auto test strip Ql (U) Negative Negative [facility] Protein (U) [Mass/Vol] Negative Negat dequan mg/dL [facility] RBC Auto (Urine sed) [#/Area] 4 High [facility] Urobilinogen (U) [Mass/Vol] mg/dL <2.0 mg/dL [facility] WBC Auto (Urine sed) [#/Area] 102 High [facility] Yeast.budding Computer assisted (U) [#/Area] Few Abnormal None Seen /hpf [facility] Microscopic examinat ion is performed on all urinalysis samples and only positive findings are reported. The test for blood on the chemical analytic portion of urinalysis may also be positive due to hemoglobinuria and myoglobinuria and if red blood cells are present they are quantified by microscopic examination. [facility] XR CHEST AP/PA AND LATon Granulocytes/100 WBC (Bld) Changes of COPD and remote granulomatous disease. No acute process identified. [employer] Workstation ID: [id number] [facility] EXAMINATION: XR CHES T AP/PA AND LAT [...] mediastinal widening. No obvious acute osseous abnormality. [facility] Interface, Rad In Fu ji Speechq - 01/11/2021 [...] remote granulomatous disease. No acute process identified. [employer] Workstation ID: [id number] [facility] Coronavirus 2019 RNA by PCR, Symptomaticon 09-10-2020 EMPLOYED IN HEALTHCARE No [facility] Internal Medicine Work Phone: FIRST COVID NASAL SWAB TEST? No [facility] Medicine Work Phone: ICU? No [facility] Work Phone: Patient was hospitalized because of this condition No [facility] Internal Medicine Work Phone: RESIDENT IN CONGREGATE CARE SETTING? No [facility] Medicine Work Phone: SYMPTOMATIC DEFINED BY [facility] Yes [facility] Work Phone: When did you start to experience these symptoms [Date and time] [PhenX] [id number] [facility] Work Phone: Coronavirus 2019 RNA by PCR, Symptomatic NOT DETECTED See Below [facility] Work Phone: Comment on above: SOURCE: Nasal, [...] make patient management decisions.Fact sheet for providers: https://www.fda.gov/media/696071/downloadFact sheet for patients: https://www.fda.gov/media/632014/downloadThis test has received FDA Emergency Use Authorization (EUA) and has been verified by [facility] ([facility]). This test is only authorized for the duration of time that circumstances exist to justify the authorization of the emergency use of in vitro diagnostic tests for the detection of SARS-CoV-2 virus and/or diagnosis of COVID-19 infection under section 564(b)(1) of the Act, 21 U.S.C. 360bbb-3(b)(1), unless the authorization is terminated or revoked sooner. [facility] is certified under CLIA-88 as qualified to perform high complexity testing. Testing is performed in the [facility] laboratories located at [address] [place] [address]. Mammography Diagnostic Bilat eralon 08-31-[address] than left proliferated retroareolar fibroglandular markings. The appearance is consistent with gynecomastia. BIRADS: BIRADS - CATEGORY 2 Benign, no evidence of malignancy. OVERALL ASSESSMENT - BENIGN These results were discussed with the patient at the time of study completion. A letter of notification will be sent to the patient regarding the results. [employer] Workstation ID: [id number] [facility] EXAMINATION: MM DIAGNOSTIC BILATERAL HISTORY: Nipple pain. COMPARISON: None. FINDINGS: Bilaterally there appear to be proliferated fibroglandular tissues behind the nipple. There are no signs of high density discrete or irregular mass, or suspicious calcification. Changes are more prominent on the right. [facility] Interface, Rad In Fu ji Speechq - [...] sent to the patient regarding the results. [employer] Workstation ID: [id number] [facility] CT COMPARISON IMPORTon 06-10 This order has been auto-finalized and does not contain a result. [facility] This order has been auto-finalized and does not contain a result. [facility] This order has been auto-finalized and does not contain a result. [facility] POC Glucoseon 06-10-2020 Glucose [Mass/Vol] 259 mg/dL High 65 - 99 mg/dL [facility] Interpretation and review of laboratory results Abnormal [facility] Glucose [Mass/Vol] 259 mg/dL Abnormal 65 - 99 mg/dL [facility] Interpretation and review of laboratory results Abnormal [facility] XR COMPARISON IMPORTon 06-10 This order has been auto-finalized and does not contain a result. [facility] Otheron 04-28-2020 Stress Nuc Stress EF 73 % [facility] Patient Info Name: STEVO ELIZALDE Age: 70 years : 1950 Gender: Male Ht: 170 cm Wt: 67 kg BSA: 1.78 m2 HR: 76 bpm BP: 155 / 85 mmHg Heart Rhythm: Sinus Rhythm Exam Date: 04/28/2020 10:00 AM Patient Status: Outpatient Ordering Physician: AQUILES HERRERA Information Services Consultant: Joelle Holbrook, RT(N), PEST CONTROLLER, RCS Exam Type: NM MYOCARDIAL PERFUSION MULTI SPECT Study Info Nuclear Physician: Juanis Dumont MD, RPVI Referring Physician: DR. MAE; [id number] Primary Nurse: Felicitas Cline RN Supervising Stress [...] Joelle Holbrook RT(N), FAINA, RCS Camera Used: [employer] D-SPECT Radiopharmaceutical: Tc-99m Tetrofosmin Administration Site: IV [...] images were acquired supine post Tetrofosmin injection. [facility] [employer] application was utilized for processing and interpretation. [...] Juanis Dumont MD on 04/28/2020 02:12 PM [facility] Interface, Rad In [employer] - 04/28/2020 2:29 PM EDT Patient Info Name: STEVO ELIZALDE Age: 70 years : 1950 Gender: Male Ht: 170 cm Wt: 67 kg BSA: 1.78 m2 HR: 76 bpm BP: 155 / 85 mmHg Heart Rhythm: Sinus Rhythm Exam Date: 04/28/2020 10:00 AM Patient Status: Outpatient Ordering Physician: AQUILES HERRERA Information Services Consultant: Joelle Holbrook, RT(N), PEST CONTROLLER, RCS Exam Type: NM MYOCARDIAL PERFUSION MULTI SPECT Study Info Nuclear Physician: Juanis Dumont MD, RPVI Referring Physician: DR. MAE; [id number] Primary Nurse: Felicitas Cline RN Supervising Stress [...] Joelle Holbrook RT(N), FAINA, RCS Camera Used: [employer] D-SPECT Radiopharmaceutical: Tc-99m Tetrofosmin Administration Site: IV - right hand Administered By: Joelle Holbrook RT(N), FAINA, RCS Camera Used: [employer] D-SPECT Image Protocol Protocol: Stress/Rest 1 Day [...] images were acquired supine post Tetrofosmin injection. [facility] [employer] application was utilized for processing and interpretation. [...] Juanis Dumont MD on 04/28/2020 02:12 PM [facility] APTTon 04-14-2020 aPTT Coag (Bld) [Time] Therapeutic range for APTT's is 68 - 104 seconds [facility] aPTT Coag (Bld) [Time] 23 s [facility] Alcohol, Medicalon 0 Ethanol [Mass/Vol] 259.70 mg/dL High <10.00 [facility] Interpretation and review of laboratory results Abnormal [facility] CBCon 04-14-2020 Erythrocyte distribution width (RBC) [Entitic vol] 12.5 % 11.6 - 14.8 % [facility] Hematocrit (Bld) [Volume fraction] 35.6 % Low 41 - 53 % [facility] Hemoglobin (Bld) [Mass/Vol] 11.9 g/dL Low 13.5 - 17.5 g/dL [facility] MCH (RBC) [Entitic mass] 37.4 pg High 26 - 34 pg [facility] MCHC (RBC) [Mass/Vol] 33.4 g/dL 31 - 37 g/dL [facility] MCV (RBC) [Entitic vol] 111.9 fL High 80 - 100 fL [facility] Nucleated RBC (Bld) [#/Vol] 0.00 10*3/uL [facility] Nucleated RBC/100 WBC (Bld) [Ratio] 0.0 % [facility] Platelet mean volume (Bld) [Entitic vol] 10.9 fL 9.4 - 12.4 fL [facility] Platelets (Bld) [#/Vol] 161 10*3/uL [facility] RBC (Bld) [#/Vol] 3.18 10*6/uL Low [facility] WBC (Bld) [#/Vol] 9.35 10*3/uL [facility] COVID-19, Molecularon 2019 SARS-CoV-2 Not Detected Not Detected [facility] Comment on above: This test was perfor med under the FDA's Emergency Use Authorization (EUA). Testing was performed using the Meléndez ID NOW COVID-19 assay on the ID NOW platform. This test has not been approved for use in asymptomatic patients and its performance in this patient population has not been evaluated. Negative results do not rule out the presence of SARS-CoV-2/COVID-19. Fact sheets for the EUA can be found at the following links: For Healthcare Providers: https://www.fda.gov/media/663436/download For Patients: https://www.fda.gov/media/814929/download CT CERVICAL SPINE WITHOUT CO NTRASTon 04-14-2020 No acute fracture or traumatic malalignment. Zphbvkwz-fn-xddehx multilevel degenerative changes. [employer] Workstation ID: [id number] [facility] EXAMINATION: CT CERV ICAL SPINE WITHOUT CONTRAST [...] the carotid arteries, left greater than right. [facility] Interface, Rad In Fu ji Speechq - [...] IMPRESSION: No acute fracture or traumatic malalignment. Kcufsxai-uo-trgtrw multilevel degenerative changes. ST/kls Workstation ID: [id number] [facility] CT CERVICAL SPINE WITHOUT CONTRAST EXAMINATION: CT [...] IMPRESSION: No acute fracture or traumatic malalignment. Vnxoksnz-ld-pgtrkp multilevel degenerative changes. [employer] Workstation ID: [id number] Dictated by: MARIAJOSE ANDERSON on MonApr 14, 2020 2:01:27 PM EDT Transcribed by: CAMILA ESPINAL on MonApr 14, 2020 2:23:34 PM EDT Finalized by: MARIAJOSE ANDERSON on MonApr 14, 2020 6:45:42 PM EDT [facility] Comment on above: Order Comment: Injur [...] aneurysmal dilatation of the descending thoracic aorta. [employer] Workstation ID: [id number] [facility] EXAMINATION: CT CHES T ABDOMEN PELVIS WITHOUT [...] lesions. No acute fracture of the pelvis. [facility], Rad In Fu ji Speechq - 04/14/2020 [...] aneurysmal dilatation of the descending thoracic aorta. [employer] Workstation ID: [id number] [facility] CT CHEST ABDOMEN PELVIS WITHOUT CONTRAST EXAMINATION: [...] aneurysmal dilatation of the descending thoracic aorta. /[facility] Workstation ID: [id number] Dictated by: MARIAJOSE ANDERSON on MonApr 14, 2020 2:33:49 PM EDT Transcribed by: ANDRAE DANIEL on MonApr 14, 2020 3:18:30 PM EDT Finalized by: MARIAJOSE ANDERSON on MonApr 14, 2020 6:45:27 PM EDT [facility] Comment on above: Order Comment: Injur y/Trauma [...] mass effect. 2. No depressed calvarial fracture. /[facility] Workstation ID: [id number] [facility], [facility] In Abel ji Speechq - 04/14/2020 6:48 [...] mass effect. 2. No depressed calvarial fracture. /[facility] Workstation ID: [id number] [facility] EXAMINATION: CT HEAD OR BRAIN WITHOUT CONTRAST [...] aerated. Mastoids are clear. Calvarium is unremarkable. [facility] CT HEAD OR BRAIN WITHOUT CONTRAST EXAMINATION: [...] mass effect. 2. No depressed calvarial fracture. /[facility] Workstation ID: [id number] Dictated by: MARIAJOSE ANDERSON on MonApr 14, 2020 1:50:35 PM EDT Transcribed by: NATALI CORDERO on MonApr 14, 2020 2:17:10 PM EDT Finalized by: MARIAJOSE ANDERSON on MonApr 14, 2020 6:46:19 PM EDT [facility] Comment on above: Order Comment: Injur [...] IMPRESSION: No acute fracture or traumatic malalignment. /[facility] Workstation ID: [id number] Dictated by: MARIAJOSE ANDERSON on MonApr 14, 2020 2:12:15 PM EDT Transcribed by: SITA STEINER on MonApr 14, 2020 2:40:33 PM EDT Finalized by: MARIAJOSE ANDERSON on MonApr 14, 2020 6:45:38 PM EDT [facility] Comment on above: Order Comment: Injur [...] facet arthropathy of the lower lumbar spine. [facility] No acute fracture or traumatic malalignment. ST/martha Workstation ID: [id number] [facility] Interface, Rad In Fu ji Speechq - [...] IMPRESSION: No acute fracture or traumatic malalignment. [employer] Workstation ID: [id number] [facility] CT THORACIC SPINE WITHOUT CO NTRAST RECONSTRUCTEDon [...] loss. Remaining vertebral body heights are normal. Vxip-xy-mxsjrvrc multilevel degenerative disc changes. IMPRESSION: No acute fracture or traumatic malalignment. [employer] Workstation ID: [id number] Dictated by: MARIAJOSE ANDERSON on MonApr 14, 2020 2:18:39 PM EDT Transcribed by: ANDRAE DANIEL on MonApr 14, 2020 3:01:09 PM EDT Finalized by: MARIAJOSE ANDERSON on MonApr 14, 2020 6:45:32 PM EDT [facility] Comment on above: Order Comment: Injur [...] Co ntrast Reconstructedon 04-14-2020 Interface, Rad In Fu ji Speechq [...] loss. Remaining vertebral body heights are normal. Bqnl-tn-qqlmuiup multilevel degenerative disc changes. IMPRESSION: No acute fracture or traumatic malalignment. [employer] Workstation ID: [id number] [facility] No acute fracture or traumatic malalignment. [employer] Workstation ID: [id number] [facility] EXAMINATION: CT THOR ACIC SPINE WITHOUT CONTRAST [...] loss. Remaining vertebral body heights are normal. Tyxt-vx-lxysvfis multilevel degenerative disc changes. [facility] Comprehensive Metabolic Pane jer 04-14-2020 Albumin [Mass/Vol] 3.2 g/dL 3.2 - 5.2 g/dL [facility] ALP [Catalytic activity/Vol] 56 U/L 40 - 150 U/L [facility] ALT [Catalytic activity/Vol] 49 U/L 14 - 65 U/L [facility] Anion gap [Moles/Vol] 20 mmol/L 10 - 2 0 mmol/L [facility] AST [Catalytic activity/Vol] 45 U/L 0 - 45 U/L [facility] Bilirubin [Mass/Vol] 0.3 mg/dL 0 - 1.3 mg/dL [facility] Calcium [Mass/Vol] 8.7 mg/dL 8.4 - 10. 2 mg/dL [facility] Chloride [Moles/Vol] 108 mmol/L 98 - 10 8 mmol/L [facility] Creatinine [Mass/Vol] 1.66 mg/dL High 0.80 - 1.30 [facility] GFR/1.73 sq M predicted among non-blacks MDRD (S/P/Bld) [Vol rate/Area] The eGFR should be used for monitoring renal function only and not for medication dosing. [facility] GFR/1.73 sq M.predicted CKD-EPI (S/P/Bld) [Vol rate/Area] 41 Low >=60 mL/min/1.73 m2 [facility] Glucose [Mass/Vol] 88 mg/dL 65 - 99 mg/dL [facility] HCO3 [Moles/Vol] 18 mmol/L Low 21 - 32 mmol/L [facility] Potassium [Moles/Vol] 4.5 mmol/L 3.5 - 5.1 mmol/L [facility] Protein [Mass/Vol] 6.7 g/dL 6 - 8 g/dL [facility] alth Sodium [Moles/Vol] 141 mmol/L 135 - 145 mmol/L [facility] Urea nitrogen [Mass/Vol] 37 mg/dL High 8 - 25 mg/dL [facility] Urea nitrogen/Creatinine [Mass ratio] 22.3 mg/mg High [facility] Gold Topon 04-14-2020 Extra Tube Hold for add-ons. [facility] Comment on above: Auto resulted. Magnesium Levelon 04-14-2020 Magnesium [Mass/Vol] 2.0 mg/dL 1.6 - 2 .4 mg/dL [facility] Otheron 04-14-2020 Interpretation and review of laboratory results Abnormal [facility] Interpretation and review of laboratory results Normal [facility] POC PT/INRon 04-14-2020 INR Coag (Bld) [Relative time] 1.0 {INR} [facility] POC Venous Blood Gas Panel-P ulmon 04-14-2020 Base excess Calc (BldV) [Moles/Vol] -8.1 mmol/L Low [facility] Breath rate setting Ventilator synchronized intermittent mandatory 0 [facility] h CO2 (BldV) [Partial pressure] 41.3 mm[Hg] [facility] HCO3 (Bld) [Moles/Vol] 18.6 mmol/L Low 24 - 28 mmol/L [facility] Hematocrit (BldA) [Volume fraction] 37.2 % Low 41 - 53 % [facility] Hemoglobin (Bld) [Mass/Vol] 12.1 g/dL Low 13.5 - 18 g/dL [facility] Inhaled oxygen concentration 21 % [facility] Interpretation and review of laboratory results Abnormal [facility] Oxygen (BldV) [Partial pressure] 43 mm[Hg] High [facility] Oxygen saturation in Venous blood 73.7 % High 40 - 70 % [facility] pH (BldV) 7.26 [pH] Low [facility] Specimen source Nom (Unsp spec) Not specified [facility] Tidal volume setting Ventilator 0 [facility] PT/INRon 04-14-2020 INR Coag (PPP) [Relative time] 1.0 {INR} [facility] PT Coag (PPP) [Time] 12.9 s [facility] During the induction phase of oral anticoagulation, the INR may not reflect the anticoagulation status of the patient. Therapeutic ranges for INR's are: Most clinical situations: INR 2.0-3.0 Mechanical Prosthetic Valve: INR 2.5-3.5 Critical: INR >5.0 [facility] Phosphoruson 04-14-2020 Phosphate [Mass/Vol] 3.9 mg/dL High 2.3 - 3 .7 mg/dL [facility] Type and Screenon 04-14-2020 ABO and Rh group Nom (Bld) A Positive [facility] Blood group antibody screen Ql Negative [facility] Specimen Expires 04/17/2020 23:59 EST [facility] XR CHEST PA/APon 04-14-2020 XR CHEST PA/AP [...] base not completely included in the imaging uxwkx-ur-okbk. No pneumothorax, pleural effusion or focal air dense airspace consolidation. Scattered calcified pulmonary granulomas. Normal heart size. Scattered atherosclerotic changes of the aorta. Remote healed right posterior 4th rib fracture. No acute displaced rib fractures. IMPRESSION: 1. No acute cardiopulmonary process. 2. No acute displaced rib fractures. [employer] Workstation ID: [id number] Dictated by: MARIAJOSE ANDERSON on MonApr 14, 2020 1:42:57 PM EDT Transcribed by: IRISH KAT on MonApr 14, 2020 2:11:28 PM EDT Finalized by: MARIAJOSE ANDERSON on MonApr 14, 2020 6:46:24 PM EDT [facility] Comment on above: Order Comment: Injur y/Trauma [...] base not completely included in the imaging ymtam-qf-lsin. No pneumothorax, pleural effusion or focal air dense airspace consolidation. Scattered calcified pulmonary granulomas. Normal heart size. Scattered atherosclerotic changes of the aorta. Remote healed right posterior 4th rib fracture. No acute displaced rib fractures. IMPRESSION: 1. No acute cardiopulmonary process. 2. No acute displaced rib fractures. [employer] Workstation ID: [id number] [facility] EXAMINATION: XR CHES T PA/AP HISTORY: ORDERING SYSTEM PROVIDED HISTORY: Trauma Level 2, TECHNOLOGIST PROVIDED HISTORY: Injury/Trauma Reason for exam: level 2 trauma Cancer History: u Surgery, RadiationHistory: u Encounter Type: Initial Mechanism of injury: fall ORDERING SYSTEM PROVIDED DIAGNOSIS CODES: COMPARISON: 06/05/2019. FINDINGS: One view of the chest. Costophrenic sulci at the lung base not completely included in the imaging lqmfq-yp-trfv. No pneumothorax, pleural effusion or focal air dense airspace consolidation. Scattered calcified pulmonary granulomas. Normal heart size. Scattered atherosclerotic changes of the aorta. Remote healed right posterior 4th rib fracture. No acute displaced rib fractures. [facility] 1. No acute cardiopulmonary process. 2. No acute displaced rib fractures. /banner Workstation ID: [id number] [facility] US DOPPLER CAROTIDon 020 Non-Invasive Vascula r Patient: TONIO Oseguera [facility] Rec#: [id number] (Age): 1950(69y) Study Date: 12/04/2019 Room#: Type: Sex: M Reading: BRITTANY Reading: Cameron Munguia DO, RPVI Referring: FELICE JHAVERI Care Connector: ALBERT SANDRA Procedure Info: Study Quality: Carotid [...] appear to be warranted. Clinical correlation advised. Care Connector's Comments:11/26/18 right ICA 0% ; left ICA [...] 12/04/2019 15:54:04 by: Cameron Munguia DO, RPVI [facility] Interface, Rad In [facility] Xper Echopacs - 12/04/2019 4:18 PM EST Non-Invasive Vascular Patient: TONIO WHITESIDE [facility] Rec#: [id number] (Age): 1950(69y) Study Date: 12/04/2019 Room#: Type: Sex: M Reading: BRITTANY Reading: Cameron Munguia DO, RPVI Referring: FELICE JHAVERI Care Connector: ALBERT SANDRA Procedure Info: Study Quality: Carotid [...] appear to be warranted. Clinical correlation advised. Care Connector's Comments:11/26/18 right ICA 0% ; left ICA [...] 12/04/2019 15:54:04 by: Cameron Munguia DO, RPVI [facility] DOPPLER SEGMENTAL ARTERIA L LEGS W EXERCISEon 12-04-2019 Non-Invasive Vascula r Patient: TONIO WHITESIDE [facility] Rec#: [id number] (Age): 1950(69y) Study Date: 12/04/2019 Room#: Type: Sex: M Reading: Cameron Munguia DO, RPVI Reading: BRITTANY Referring: Cameron Munguia D.O. Care Connector: Albert Sandra RVT Procedure Info: [id number] Study Quality: Lower Arterial Doppler: adequate Diagnosis: [...] in the left leg. Clinical correlation advised. Care Connector's Comments:05/07/18 [place] right CLEMENCIA 1.13 ; left CLEMENCIA .84 [...] 12/04/2019 15:56:33 by: Cameron Munguia DO, RPVI [facility], Rick In Heartlab Xper Echopacs - 12/04/2019 4:18 PM EST Non-Invasive Vascular Patient: TONIO Oseguera [facility] Rec#: [id number] (Age): 1950(69y) Study Date: 12/04/2019 Room#: Type: Sex: M Reading: Cameron Munguia DO, RPVI Reading: BRITTANY Referring: Cameron Munguia D.O. Care Connector: Albert Sandra Forrest Procedure Info: [id number] Study Quality: Lower Arterial Doppler: adequate Diagnosis: [...] in the left leg. Clinical correlation advised. Care Connector's Comments:05/07/18 [place] right CLEMENCIA 1.13 ; left CLEMENCIA .84 [...] 12/04/2019 15:56:33 by: Cameron Munguia DO, RPVI [facility] ECG 12-LEADon 06-05-2019 Bret Fuentes MD 06/05/2019 1:46 PM EKG 12-lead Date/Time: 06/05/2019 1:21 PM Performed by: Bret Fuentes MD Authorized by: Bret Fuentes MD Interpreted by ED attending physician Comparison: not compared with previous ECG Rhythm: sinus rhythm BPM: 72 Conduction: conduction normal T Waves: T waves normal normal NE interval normal QRS interval Clinical impression: normal ECG [facility] POC B-type natriuretic pepti de (BNP)on 06-05-2019 Interpretation and review of laboratory results Normal [facility] Natriuretic peptide B (Bld) [Mass/Vol] 97.3 pg/mL <100 [facility] POC Basic Metabolic Panelon 06-05-2019 Calcium [Mass/Vol] 8.9 mg/dL 8.4 - 10. 2 mg/dL [facility] Chloride [Moles/Vol] 105 mmol/L 98 - 10 8 mmol/L [facility] CO2 [Moles/Vol] 28 mmol/L 21 - 32 mmol/L [facility] Creatinine [Mass/Vol] 1.1 mg/dL 0.8 - 1.3 mg/dL [facility] Glucose [Mass/Vol] 81 mg/dL 65 - 99 mg/dL [facility] Interpretation and review of laboratory results Abnormal [facility] Potassium [Moles/Vol] 3.4 mmol/L Low 3.5 - 5.1 mmol/L [facility] Sodium [Moles/Vol] 141 mmol/L 135 - 145 mmol/L [facility] Urea nitrogen [Mass/Vol] 16 mg/dL 8 - 25 mg/dL [facility] POC CBC and Differentialon 0 06-05-2019 Comment See Comment Critically abnormal (none) [facility] Comment on above: CRITICAL. CBCD reord ered and sent to . Platelet count non reportable due to clumping. Erythrocyte distribution width (RBC) [Entitic vol] 12.3 % 11.6 - 14.8 % [facility] Comment on above: This is a corrected result. Previous result was 12.2 % on 06/05/2019 at 1312 EDT Hematocrit (Bld) [Volume fraction] 38.1 % Low 41 - 53 % [facility] Comment on above: This is a corrected result. Previous result was 36.7 % on 06/05/2019 at 1312 EDT Hemoglobin (Bld) [Mass/Vol] 13.2 g/dL Low 13.5 - 17.5 g/dL [facility] Comment on above: This is a corrected result. Previous result was 12.9 g/dL on 06/05/2019 at 1312 EDT Interpretation and review of laboratory results Abnormal [facility] Lymphocytes (Bld) [#/Vol] 2.2 10*3/uL [facility] Comment on above: This is a corrected result. Previous result was 2.1 K/mcl on 06/05/2019 at 1312 EDT Lymphocytes/100 WBC (Bld) 23.7 % [facility] Comment on above: This is a corrected result. Previous result was 22.6 % on 06/05/2019 at 1312 EDT MCH (RBC) [Entitic mass] 36.4 pg High 26 - 34 pg [facility] Comment on above: This is a corrected result. Previous result was 36.6 pg on 06/05/2019 at 1312 EDT MCHC (RBC) [Mass/Vol] 34.6 g/dL 31 - 37 g/dL [facility] Comment on above: This is a corrected result. Previous result was 35.1 g/dL on 06/05/2019 at 1312 EDT MCV (RBC) [Entitic vol] 105.0 fL High 80 - 100 fL [facility] Comment on above: This is a corrected result. Previous result was 104.3 fL on 06/05/2019 at 1312 EDT Mixed 2.7 % [facility] Comment on above: This is a corrected result. Previous result was 3.1 % on 06/05/2019 at 1312 EDT Mixed Abs 0.3 K/mcl [facility] Neutrophil Abs 6.9 [facility] Comment on above: This is a corrected result. Previous result was 7.1 K/mcl on 06/05/2019 at 1312 EDT Neutrophils/100 WBC (Bld) 73.6 % [facility] Comment on above: This is a corrected result. Previous result was 74.3 % on 06/05/2019 at 1312 EDT Platelet mean volume (Bld) [Entitic vol] 12.2 fL 9 - 15.5 fL [facility] Comment on above: This is an appended report. These results have been appended to a previously final verified report. Platelets (Bld) [#/Vol] 212 10*3/uL [facility] Comment on above: This is an appended report. These results have been appended to a previously final verified report. RBC (Bld) [#/Vol] 3.63 10*6/uL Low [facility] Comment on above: This is a corrected result. Previous result was 3.52 M/mcL on 06/05/2019 at 1312 EDT WBC (Bld) [#/Vol] 9.40 10*3/uL [facility] Comment on above: This is a corrected result. Previous result was 9.50 K/mcL on 06/05/2019 at 1312 EDT POC Troponin Ion 06-05-2019 Interpretation and review of laboratory results Normal [facility] Troponin I.cardiac [Mass/Vol] ng/mL <0.05 ng/mL [facility] XR CHEST AP/PA AND LATon XR CHEST [...] on MonJun 05, 2019 12:57:52 PM EDT [facility] Comment on above: Order Comment: Injur y/Trauma [...] signs and symptoms?:hx htn Interface, [facility] 06/05/2019 1:00 PM EDT EXAMINATION: XR [...] mild chronic degenerative changes. Workstation ID: [id number] [facility] EXAMINATION: XR CHES T AP/PA AND LAT [...] rib fracture involving the right 4th rib. [facility] Nonacute two-view ch est with mild chronic degenerative changes. Workstation ID: [id number] [facility] CBC WITH AUTO DIFFERENTIALon 05-27-2019 Basophils (Bld) [#/Vol] 0.06 10*3/uL [facility] Basophils/100 WBC (Bld) 0.6 % [facility] Eosinophils (Bld) [#/Vol] 0.01 10*3/uL [facility] Eosinophils/100 WBC (Bld) 0.1 % [facility] Erythrocyte distribution width (RBC) [Entitic vol] 12.4 % 11.6 - 14.8 % [facility] Hematocrit (Bld) [Volume fraction] 35.5 % Low 41 - 53 % [facility] Hemoglobin (Bld) [Mass/Vol] 12.7 g/dL Low 13.5 - 17.5 g/dL [facility] Immature granulocytes (Bld) [#/Vol] 0.05 10*3/uL [facility] Immature granulocytes/100 WBC (Bld) 0.50 % [facility] Comment on above: The IG parameter is the percentage of metamyelocytes, myelocytes, and promyelocytes. Interpretation and review of laboratory results Abnormal [facility] Lymphocytes (Bld) [#/Vol] 1.78 10*3/uL [facility] Lymphocytes/100 WBC (Bld) 18.9 % [facility] MCH (RBC) [Entitic mass] 37.4 pg High 26 - 34 pg [facility] MCHC (RBC) [Mass/Vol] 35.8 g/dL 31 - 37 g/dL [facility] MCV (RBC) [Entitic vol] 104.4 fL High 80 - 100 fL [facility] Monocytes (Bld) [#/Vol] 0.84 10*3/uL [facility] Monocytes/100 WBC (Bld) 8.9 % [facility] Neutrophils (Bld) [#/Vol] 6.68 10*3/uL [facility] Neutrophils/100 WBC (Bld) 71.0 % [facility] Nucleated RBC (Bld) [#/Vol] 0.00 10*3/uL [facility] Nucleated RBC/100 WBC (Bld) [Ratio] 0.0 % [facility] Platelet mean volume (Bld) [Entitic vol] 11.2 fL 9 - 15.5 fL [facility] Platelets (Bld) [#/Vol] 116 10*3/uL Low [facility] RBC (Bld) [#/Vol] 3.40 10*6/uL Low [facility] WBC (Bld) [#/Vol] 9.42 10*3/uL [facility] eah CMPon 05-27-2019 Albumin [Mass/Vol] 3.2 g/dL 3.2 - 5.2 g/dL [facility] ALP [Catalytic activity/Vol] 42 U/L 40 - 150 U/L [facility] ALT [Catalytic activity/Vol] 28 U/L 14 - 65 U/L [facility] Anion gap [Moles/Vol] 13 mmol/L 10 - 2 0 mmol/L [facility] AST [Catalytic activity/Vol] 26 U/L 0 - 45 U/L [facility] Bilirubin [Mass/Vol] 0.4 mg/dL 0 - 1.3 mg/dL [facility] Calcium [Mass/Vol] 9.4 mg/dL 8.4 - 10. 2 mg/dL [facility] Chloride [Moles/Vol] 106 mmol/L 98 - 10 8 mmol/L [facility] Creatinine [Mass/Vol] 1.18 mg/dL 0.8 - 1.3 mg/dL [facility] GFR/1.73 sq M predicted among non-blacks MDRD (S/P/Bld) [Vol rate/Area] The eGFR should be used for monitoring renal function only and not for medication dosing. [facility] GFR/1.73 sq M.predicted CKD-EPI (S/P/Bld) [Vol rate/Area] 62 >=60 mL/min/1.73 m2 [facility] Glucose [Mass/Vol] 90 mg/dL 65 - 99 mg/dL [facility] HCO3 [Moles/Vol] 25 mmol/L 21 - 32 mmol/L [facility] Interpretation and review of laboratory results Normal [facility] Potassium [Moles/Vol] 3.9 mmol/L 3.5 - 5.1 mmol/L [facility] Protein [Mass/Vol] 6.8 g/dL 6 - 8 g/dL [facility] alth Sodium [Moles/Vol] 140 mmol/L 135 - 145 mmol/L [facility] Urea nitrogen [Mass/Vol] 16 mg/dL 8 - 25 mg/dL [facility] Urea nitrogen/Creatinine [Mass ratio] 13.6 mg/mg [facility] Light Blue Topon 05-27-2019 Extra Tube Hold for add-ons. [facility] Comment on above: Auto resulted. ECG 12-LEADon 04-01-2019 Atrial Rate [facility] [place] [facility] P-R Interval [facility] Q-T Interval [facility] Q-T Interval (corrected) [facility] QRS Duration [facility] QTC Calculation (Bezet) [facility] R [facility] T [place] [facility] Ventricular Rate [facility] CT CHEST LOW DOSE LUNG SCREE ANTHONY - LCSPon 01-21-[address] evidence for developing pulmonary malignancy. Lung-RADs 1 Findings: No lung nodules; nodule(s) with specific calcifications: Complete, central, popcorn, concentric rings and fat containing nodules. Management: Continue annual screening with LDCT in 12 months. [facility]/hb Workstation ID: [id number] [facility] EXAMINATION: CT CHES T LOW DOSE LUNG SCREENING - LCSP HISTORY: ORDERING SYSTEM PROVIDED HISTORY: Screening for malignant neoplasm of respiratory organ, TECHNOLOGIST PROVIDED HISTORY: Reason for exam: lowdose lung screen Illness/Other Encounter Type: Initial Additional signs and symptoms: current smoker 30 py yrs ORDERING SYSTEM PROVIDED DIAGNOSIS CODES: Z12.2 Screening for malignant neoplasm of respiratory organ F17.210 Cigarette Smoker COMPARISON: 01/11/2018 at [facility] in [place] and 09/17/2010 from [place]. TECHNIQUE: Dose reduction techniques were achieved by [...] radiodense material in the gallbladder suggesting gallstones. [facility] US DOPPLER CAROTIDon 019 Non-Invasive Vascula r Patient: TONIO Oseguera [facility] Rec#: [id number] (Age): 1950(68y) Study Date: 11/26/2018 Room#: Type: Sex: M Reading: Dr. Marv Krause MD, RPVI Reading: BRITTANY Referring: AQUILES HERRERA PAUL Care Connector: ALBERT SANDRA Procedure Info: [id number]... Study Quality: Carotid Duplex: adequate Diagnosis: I65.23 [...] of stenosis in the left subclavian artery. Care Connector's Comments:05/07/18 Right ICA 0% ; left ICA [...] 10:09:03 by: Dr. Marv Krause MD, YASMIN [facility] Interface, Rad In Heartlab [facility] - 11/26/2018 10:19 AM EST Non-Invasive Vascular Patient: TONIO Oseguera [facility] Rec#: [id number] (Age): 1950(68y) Study Date: 11/26/2018 Room#: Type: Sex: M Reading: Dr. Marv Krause MD, CORWINVI Reading: BRITTANY Referring: AQUILES HERRERA PAUL Care Connector: ALBERT SANDRA Procedure Info: [id number]... Study Quality: Carotid Duplex: adequate Diagnosis: I65.23 [...] of stenosis in the left subclavian artery. Care Connector's Comments:05/07/18 Right ICA 0% ; left ICA [...] 11/26/2018 10:09:03 by: Dr. Marv Krause MD, [facility] Ultrasound abdominal aorta d uplex limitedon 11-26-2018 Non-Invasive Vascula r Patient: TONIO Oseguera [facility] Rec#: [id number] (Age): 1950(68y) Study Date: 11/26/2018 Room#: Type: Sex: M Reading: BRITTANY Reading: Dr. Marv Krause MD, RPVI Referring: AQUILES HERRERA PAUL Care Connector: Soraya Floyd, RVT, RDMS Procedure Info: [id number] Study Quality: Aneurysm Duplex: adequate Diagnosis: R09.89 [...] 11/26/2018 10:10:49 by: Dr. Marv Krause MD, RPCHRIS [facility] Interface, Rad In Heartlab [facility] - 11/26/2018 10:19 AM EST Non-Invasive Vascular Patient: TONIO Oseguera [facility] Rec#: [id number] (Age): 1950(68y) Study Date: 11/26/2018 Room#: Type: Sex: M Reading: BRITTANY Reading: Dr. Marv Krause MD, RPVI Referring: AQUILES HERRERA PAUL Care Connector: Soraya Floyd, RVT, RDMS Procedure Info: [id number] Study Quality: Aneurysm Duplex: adequate Diagnosis: R09.89 [...] 10:10:49 by: Dr. Marv Krause MD, RPVI [facility] Dobutamine stress echocardio gramon 11-13-2018 Target HR bpm [facility] Stress Echocardiogra m Patient: TONIO Oseguera [facility] Rec#: [id number] (Age): 1950(68y) Height: 170(cm)/66(in) Study Date: 11/13/2018 Weight: 66.7(kg)/147(lb Room#: BSA: 1.77 Type: Loc: Sex: M Reading: Silvia Joshua M.D. Ordering ProvidDr. Aquiles Herrera MD Care Connector: Faith Richey RN RDCS Supervising - Clarita [...] at 11/13/2018 13:09:45 by: Silvia Joshua M.D. [facility] Interface, Rad In Heartlab [facility] - 11/13/2018 1:17 PM EST Stress Echocardiogram Patient: TONIO Oseguera [facility] Rec#: [id number] (Age): 1950(68y) Height: 170(cm)/66(in) Study Date: 11/13/2018 Weight: 66.7(kg)/147(lb Room#: BSA: 1.77 Type: Loc: Sex: M Reading: Silvia Joshua M.D. Ordering ProvidDr. Aquiles Herrera MD Care Connector: Faith Richey RN RDCS Supervising - Clarita [...] at 11/13/2018 13:09:45 by: Silvia Joshua M.D. [facility] CMP FASTINGon 11-12-2018 A:G RATIO 1.3 RATIO Normal 1.3-2.2 [facility] Comment on above: Performed By: #### F X, CMPF, LIP2 #### Testing performed at [address] [address] Albumin mass conc 3.5 G/dl Normal 3.5-5.0 [facility] Comment on above: Performed By: #### F X, CMPF, LIP2 #### Testing performed at [address] [address] ALP enzyme act/vol 49 U/L Normal 38-126 [facility] Comment on above: Performed By: #### F X, CMPF, LIP2 #### Testing performed at [address] [address] ALT enzyme act/vol 20 U/L Normal 17-63 [facility] Comment on above: Performed By: #### F X, CMPF, LIP2 #### Testing performed at [place] [id number] AST enzyme act/vol 25 U/L Normal 15-41 [facility] Comment on above: Performed By: #### F X, CMPF, LIP2 #### Testing performed at [place] [id number] Bilirubin mass conc 0.6 mg/dL Normal 0.2-1.2 [facility] Comment on above: Performed By: #### F X, CMPF, LIP2 #### Testing performed at [place] [id number] Creatinine mass conc 1.3 mg/dL High 0.66-1.25 [facility] Comment on above: Performed By: #### F X, CMPF, LIP2 #### [place] [address] EST. GFR, >60 Normal [facility] Comment on above: Performed By: #### F X, CMPF, LIP2 #### [place] [address] EST. GFR,Non 58 ml/min/1.73sq.m Normal [facility] Comment on above: Performed By: #### F X, CMPF, LIP2 #### [place] [address] GFR/1.73 sq M predicted among non-blacks MDRD vol rate/area (S/P/Bld) Average GFR for 60-69 years old = 85. Normal [facility] Comment on above: Result Comment: [employer] Player ulises Kidney disease, GFR = <60. Kidney failure, GFR = <15. The GFR estimate is not adjusted for extreme body surface area or acute process, nor has it been validated for women or ethnic groups other than and . Performed By: #### F X, CMPF, LIP2 #### [place] [address] Protein mass conc 6.3 g/dL Normal 6.3-8.2 [facility] Comment on above: Performed By: #### F X, CMPF, LIP2 #### Testing performed at [address] [place] [address] Urea nitrogen mass conc 28 mg/dL High 7-20 [facility] Comment on above: Performed By: #### F X, CMPF, LIP2 #### Testing performed at [address] [address] Calcium mass conc 9.0 mg/dL Normal 8.4-10.2 [facility] Comment on above: Performed By: #### F X, CMPF, LIP2 #### Testing performed at [address] [address] Chloride molar conc 101 mmol/L Normal 98-107 [facility] Comment on above: Performed By: #### F X, CMPF, LIP2 #### Testing performed at [address] [address] CO2 molar conc 27 mmol/L Normal 22-30 [facility] Comment on above: Performed By: #### F X, CMPF, LIP2 #### Testing performed at [address] [address] Glucose mass conc 111 mg/dL High 70-100 [facility] Comment on above: Result Comment: NORMAL <100 mg/dL PREDIABETES 101-126 mg/dL DIABETES 126 mg/dL or higher Performed By: #### F X, CMPF, LIP2 #### Testing performed at [address] [address] Potassium molar conc 4.0 mmol/L Normal 3.5-5.1 [facility] Comment on above: Performed By: #### F X, CMPF, LIP2 #### Testing performed at [address] [address] Sodium molar conc 138 mmol/L Normal 136-145 [facility] Comment on above: Performed By: #### F X, CMPF, LIP2 #### Testing performed at [address] [address] FAX REQUESTon 11-12-2018 FAX TO FAX TO [facility] Comment on above: Performed By: #### F X, PSA #### Testing performed at [address] [address] FAX TO FAX TO [facility] Comment on above: Performed By: #### F X, HA1CT #### Testing performed at [address] [address] FAX TO FAX TO [facility] Comment on above: Performed By: #### F X, CMPF, LIP2 #### Testing performed at [address] [address] HEMOGLOBIN A1Con 11-12-2018 Hemoglobin A1c/Hemoglobin.total mass fraction (Bld) 105 mg/dL Normal [facility] Comment on above: Performed By: #### F X, HA1CT #### Testing performed at [address] [address] Hemoglobin A1c/Hemoglobin.total mass fraction (Bld) 5.3 % Normal <6 [facility] Comment on above: Result Comment: NORMAL <5.7% PREDIABETES 5.7-6.4% DIABETES 6.5% OR HIGHER Performed By: #### F X, HA1CT #### Testing performed at [address] [address] LIPID PROFILEon 11-12-2018 Cholesterol in HDL mass conc 51 mg/dL Normal 40-60 [facility] Comment on above: Performed By: #### F X, CMPF, LIP2 #### Testing performed at [address] [address] Cholesterol in LDL mass conc 81 mg/dL Normal 0-100 [facility] Comment on above: Performed By: #### F X, CMPF, LIP2 #### Testing performed at [address] [address] Cholesterol in VLDL mass conc 38 mg/dL High 5.0-25.0 [facility] Comment on above: Performed By: #### F X, CMPF, LIP2 #### Testing performed at [address] [address] Cholesterol mass conc 170 mg/dL Normal 100-199 [facility] Comment on above: Performed By: #### F X, CMPF, LIP2 #### Testing performed at [address] [address] Cholesterol.total/Caren sterol in HDL mass ratio 3.33 {ratio} Normal [facility] Comment on above: Result Comment: RISK TOTAL/HDL RATIO MEN WOMEN 1/2 AVERAGE 3.43 3.27 AVERAGE 4.97 4.44 2X AVERAGE 9.55 7.05 3X AVERAGE 23.99 11.04 Performed By: #### F X, CMPF, LIP2 #### [place] [address] Triglyceride mass conc 192 mg/dL High <150 [facility] Comment on above: Performed By: #### F X, CMPF, LIP2 #### [place] [address] PSA,TOTALon 11-12-2018 PSA,TOTAL 0.990 NG/ML Normal 0-4 [facility] Comment on above: Result Comment: OBTAIN BASELINE BETWEEN AGES OF 45-75 LESS THAN 1.0 ng/mL REPEAT TESTING AT 2-4 YEARS 1.0-3.0 ng/mL REPEAT TESTING AT 1-2 YEARS GREATER THAN 3.0 ng/mL REPEAT PSA,DANG, AND WORKUP FOR BENIGN DISEASE AGE GREATER THAN 75, PSA LESS THAN 3 ng/mL REPEAT TESTING IN 1-4 YEARS Performed By: #### F X, PSA #### [place] [address] CBC AND DIFFERENTIALon 09-19 Basophils Auto #/vol (Bld) 0.1 10*3/uL Invalid Interpretation Code [facility] Basophils/100 WBC Auto (Bld) 2.0 % Invalid Interpretation Code [facility] Eosinophils Auto #/vol (Bld) 0.2 10*3/uL Invalid Interpretation Code [facility] Eosinophils/100 WBC Auto (Bld) 3.8 % Invalid Interpretation Code [facility] Erythrocyte distribution width Auto Ratio (RBC) 13.4 % Invalid Interpretation Code 10 - 14.3 % [facility] Hematocrit Auto Volume Fraction (Bld) 43.6 % Invalid Interpretation Code 37.9 - 49.2 % [facility] Hemoglobin mass conc (Bld) 14.8 g/dL Invalid Interpretation Code 12.9 - 16.9 g/dL [facility] Interpretation and review of laboratory results Abnormal Invalid Interpretation Code [facility] Lymphocytes Auto #/vol (Bld) 2.4 10*3/uL Invalid Interpretation Code [facility] Lymphocytes/100 WBC Auto (Bld) 38.9 % Invalid Interpretation Code [facility] MCH Auto Entitic mass (RBC) 37.6 pg High 27.7 - 34.6 pg [facility] MCHC Auto mass conc (RBC) 34.0 g/dL Invalid Interpretation Code 32.9 - 35.5 g/dL [facility] MCV Auto Entitic volume (RBC) 110.7 fL High [facility] Monocytes Auto #/vol (Bld) 0.5 10*3/uL Invalid Interpretation Code [facility] Monocytes/100 WBC Auto (Bld) 8.1 % Invalid Interpretation Code [facility] Neutrophils Auto #/vol (Bld) 2.9 10*3/uL Invalid Interpretation Code [facility] Platelet mean volume Auto Entitic volume (Bld) 10.2 fL Invalid Interpretation Code [facility] Platelets Auto #/vol (Bld) 169 10*3/uL Invalid Interpretation Code [facility] RBC Auto #/vol (Bld) 3.94 10*6/uL Low [facility] Segmented Neut 47.2 % Invalid Interpretation Code [facility] WBC Auto #/vol (Bld) 6.1 10*3/uL Invalid Interpretation Code [facility] CBC with Diffon 09-19-2018 Basophils #/vol (Bld) 0.1 K/mcL Normal 0-0.2 [facility] Comment on above: Performed By: #### F ERR, LYTES, CALCM, BUNCR, IRON, TFERR, ALB, PHOS, PTHI #### Unless otherwise noted, all testing performed by [place] [address] CLIA: [id number] Gum Machine Operator: Eric Moser M.D. Basophils/100 WBC (Bld) 2.0 % Normal [facility] Comment on above: Performed By: #### F ERR, LYTES, CALCM, BUNCR, IRON, TFERR, ALB, PHOS, PTHI #### Unless otherwise noted, all testing performed by [place] [phone] CLIA: [id number] Gum Machine Operator: Eric Moser M.D. Eosinophils #/vol (Bld) 0.2 K/mcL Normal 0-0.5 [facility] Comment on above: Performed By: #### F ERR, LYTES, CALCM, BUNCR, IRON, TFERR, ALB, PHOS, PTHI #### Unless otherwise noted, all testing performed by [place] [phone] CLIA: [id number] Gum Machine Operator: Eric Moser M.D. Eosinophils/100 WBC (Bld) 3.8 % Normal [facility] Comment on above: Performed By: #### F ERR, LYTES, CALCM, BUNCR, IRON, TFERR, ALB, PHOS, PTHI #### Unless otherwise noted, all testing performed by [place] [phone] CLIA: [id number] Gum Machine Operator: Eric Moser M.D. Erythrocyte distribution width Ratio (RBC) 13.4 % Normal 10-14.3 [facility] Comment on above: Performed By: #### F ERR, LYTES, CALCM, BUNCR, IRON, TFERR, ALB, PHOS, PTHI #### Unless otherwise noted, all testing performed by [place] [phone] CLIA: [id number] Gum Machine Operator: Eric Moser M.D. Hematocrit Volume Fraction (Bld) 43.6 % Normal 37.9-49.2 [facility] Comment on above: Performed By: #### F ERR, LYTES, CALCM, BUNCR, IRON, TFERR, ALB, PHOS, PTHI #### Unless otherwise noted, all testing performed by [place] [address] CLIA: [id number] Gum Machine Operator: Eric Moser M.D. Hemoglobin mass conc (Bld) 14.8 g/dL Normal 12.9-16.9 [facility] Comment on above: Performed By: #### F ERR, LYTES, CALCM, BUNCR, IRON, TFERR, ALB, PHOS, PTHI #### Unless otherwise noted, all testing performed by [place] [address] CLIA: [id number] Gum Machine Operator: Eric Moser M.D. Lymphocytes #/vol (Bld) 2.4 K/mcL Normal 0.9-3.6 [facility] Comment on above: Performed By: #### F ERR, LYTES, CALCM, BUNCR, IRON, TFERR, ALB, PHOS, PTHI #### Unless otherwise noted, all testing performed by [place] [address] CLIA: [id number] Gum Machine Operator: Eric Moser M.D. Lymphocytes/100 WBC (Bld) 38.9 % Normal [facility] Comment on above: Performed By: #### F ERR, LYTES, CALCM, BUNCR, IRON, TFERR, ALB, PHOS, PTHI #### Unless otherwise noted, all testing performed by [place] [address] CLIA: [id number] Gum Machine Operator: Eric Moser M.D. MCH Entitic mass (RBC) 37.6 pg High 27.7-34.6 [facility] Comment on above: Performed By: #### F ERR, LYTES, CALCM, BUNCR, IRON, TFERR, ALB, PHOS, PTHI #### Unless otherwise noted, all testing performed by [place] [address] CLIA: [id number] Gum Machine Operator: Eric Moser M.D. MCHC mass conc (RBC) 34.0 g/dL Normal 32.9-35.5 [facility] Comment on above: Performed By: #### F ERR, LYTES, CALCM, BUNCR, IRON, TFERR, ALB, PHOS, PTHI #### Unless otherwise noted, all testing performed by [place] [phone] CLIA: [id number] Gum Machine Operator: Eric Moser M.D. MCV Entitic volume (RBC) 110.7 fL High 82.8-99.3 [facility] Comment on above: Performed By: #### F ERR, LYTES, CALCM, BUNCR, IRON, TFERR, ALB, PHOS, PTHI #### Unless otherwise noted, all testing performed by [place] [address] CLIA: [id number] Gum Machine Operator: Eric Moser M.D. Monocytes #/vol (Bld) 0.5 K/mcL Normal 0.2-0.6 [facility] Comment on above: Performed By: #### F ERR, LYTES, CALCM, BUNCR, IRON, TFERR, ALB, PHOS, PTHI #### Unless otherwise noted, all testing performed by [place] [address] CLIA: [id number] Gum Machine Operator: Eric Moser M.D. Monocytes/100 WBC (Bld) 8.1 % Normal [facility] Comment on above: Performed By: #### F ERR, LYTES, CALCM, BUNCR, IRON, TFERR, ALB, PHOS, PTHI #### Unless otherwise noted, all testing performed by [place] [address] CLIA: [id number] Gum Machine Operator: Eric Moser M.D. Neutrophils #/vol (Bld) 2.9 K/mcL Normal 1.4-6.8 [facility] Comment on above: Performed By: #### F ERR, LYTES, CALCM, BUNCR, IRON, TFERR, ALB, PHOS, PTHI #### Unless otherwise noted, all testing performed by [place] [address] CLIA: [id number] Gum Machine Operator: Eric Moser M.D. Platelet mean volume Entitic volume (Bld) 10.2 fL Normal 6.6-10.8 [facility] Comment on above: Performed By: #### F ERR, LYTES, CALCM, BUNCR, IRON, TFERR, ALB, PHOS, PTHI #### Unless otherwise noted, all testing performed by [place] [address] CLIA: [id number] Gum Machine Operator: Eric Moser M.D. Platelets #/vol (Bld) 169 K/mcL Normal 139-354 [facility] Comment on above: Performed By: #### F ERR, LYTES, CALCM, BUNCR, IRON, TFERR, ALB, PHOS, PTHI #### Unless otherwise noted, all testing performed by [place] [address] CLIA: [id number] Gum Machine Operator: Eric Moser M.D. RBC #/vol (Bld) 3.94 M/mcL Low 4.0-5.5 [facility] Comment on above: Performed By: #### F ERR, LYTES, CALCM, BUNCR, IRON, TFERR, ALB, PHOS, PTHI #### Unless otherwise noted, all testing performed by [place] [address] CLIA: [id number] Gum Machine Operator: Eric Moser M.D. Segmented Neut % 47.2 % Normal [facility] Comment on above: Performed By: #### F ERR, LYTES, CALCM, BUNCR, IRON, TFERR, ALB, PHOS, PTHI #### Unless otherwise noted, all testing performed by [place] [address] CLIA: [id number] Gum Machine Operator: Eric Moser M.D. WBC #/vol (Bld) 6.1 K/mcL Normal 3.6-10.4 [facility] Comment on above: Performed By: #### F ERR, LYTES, CALCM, BUNCR, IRON, TFERR, ALB, PHOS, PTHI #### Unless otherwise noted, all testing performed by [place] [address] CLIA: [id number] Gum Machine Operator: Eric Moser M.D. Comprehensive Metabolic Pane [facility] 09-19-2018 Albumin mass conc 3.1 g/dL Low 3.2 - 5.2 g/dL [facility] ALP enzyme act/vol 59 U/L Invalid Interpretation Code 40 - 150 U/L [facility] ALT enzyme act/vol 33 U/L Invalid Interpretation Code 14 - 65 U/L [facility] Comment on above: This test result alfredo ht be falsely depressed or falsely elevated on samples drawn from patients taking Sulfasalazine and Sulfapyridine. Venipuncture should occur prior to taking either of these drugs. AST enzyme act/vol 29 U/L Invalid Interpretation Code 0 - 45 U/L [facility] Comment on above: This test result alfredo ht be falsely depressed or falsely elevated on samples drawn from patients taking Sulfasalazine and Sulfapyridine. Venipuncture should occur prior to taking either of these drugs. Bilirubin mass conc 0.3 mg/dL Invalid Interpretation Code 0.3 - 1.2 mg/dL [facility] Calcium mass conc 9.2 mg/dL Invalid Interpretation Code 8.4 - 10.2 mg/dL [facility] Chloride molar conc 106 mmol/L Invalid Interpretation Code 98 - 108 mmol/L [facility] CO2 molar conc 26 mmol/L Invalid Interpretation Code 21 - 32 mmol/L [facility] Creatinine mass conc 1.14 mg/dL Invalid Interpretation Code 0.8 - 1.3 mg/dL [facility] GFR/1.73 sq M predicted among blacks MDRD vol rate/area (S/P/Bld) mL/min/{1.73_m2} Invalid Interpretation Code ml/min/1.73s q.m [facility] Comment on above: GFR Calc GFR/1.73 sq M predicted among non-blacks MDRD vol rate/area (S/P/Bld) mL/min/{1.73_m2} Invalid Interpretation Code ml/min/1.73s q.m [facility] Comment on above: Non- GFR Calc [...] 105 mg/dL High 70 - 99 mg/dL [facility] Comment on above: This test result alfredo ht be falsely depressed or falsely elevated on samples drawn from patients taking Sulfasalazine and Sulfapyridine. Venipuncture should occur prior to taking either of these drugs. Interpretation and review of laboratory results Abnormal Invalid Interpretation Code [facility] Potassium molar conc 3.9 mmol/L Invalid Interpretation Code 3.5 - 5.1 mmol/L [facility] Protein mass conc 6.8 g/dL Invalid Interpretation Code 6 - 8 g/dL [facility] Sodium molar conc 139 mmol/L Invalid Interpretation Code 135 - 145 mmol/L [facility] Urea nitrogen mass conc 19 mg/dL Invalid Interpretation Code 8 - 25 mg/dL [facility] Albumin mass conc 3.1 g/dL Low 3.2-5.2 [facility] Comment on above: Performed By: #### F ERR, LYTES, CALCM, BUNCR, IRON, TFERR, ALB, PHOS, PTHI #### Unless otherwise noted, all testing performed by [place] [address] CLIA: [id number] Gum Machine Operator: Eric Moser M.D. ALP enzyme act/vol 59 U/L Normal 40-150 [facility] Comment on above: Performed By: #### F ERR, LYTES, CALCM, BUNCR, IRON, TFERR, ALB, PHOS, PTHI #### Unless otherwise noted, all testing performed by [place] [address] CLIA: [id number] Gum Machine Operator: Eric Moser M.D. ALT enzyme act/vol 33 U/L Normal 14-65 [facility] Comment on above: Result Comment: This test result might be falsely depressed or falsely elevated on samples drawn from patients taking Sulfasalazine and Sulfapyridine. Venipuncture should occur prior to taking either of these drugs. Performed By: #### F ERR, LYTES, CALCM, BUNCR, IRON, TFERR, ALB, PHOS, PTHI #### Unless otherwise noted, all testing performed by [place] [address] CLIA: [id number] Gum Machine Operator: Eric Moser M.D. AST enzyme act/vol 29 U/L Normal 0-45 [facility] Comment on above: Result Comment: This test result might be falsely depressed or falsely elevated on samples drawn from patients taking Sulfasalazine and Sulfapyridine. Venipuncture should occur prior to taking either of these drugs. Performed By: #### F ERR, LYTES, CALCM, BUNCR, IRON, TFERR, ALB, PHOS, PTHI #### Unless otherwise noted, all testing performed by [place] [address] CLIA: [id number] Gum Machine Operator: Eric Moser M.D. Bilirubin mass conc 0.3 mg/dL Normal 0.3-1.2 [facility] Comment on above: Performed By: #### F ERR, LYTES, CALCM, BUNCR, IRON, TFERR, ALB, PHOS, PTHI #### Unless otherwise noted, all testing performed by [place] [phone] CLIA: [id number] Gum Machine Operator: Eric Moser M.D. Calcium mass conc 9.2 mg/dL Normal 8.4-10.2 [facility] Comment on above: Performed By: #### F ERR, LYTES, CALCM, BUNCR, IRON, TFERR, ALB, PHOS, PTHI #### Unless otherwise noted, all testing performed by [place] [address] CLIA: [id number] Gum Machine Operator: Eric Moser M.D. Chloride molar conc 106 mmol/L Normal 98-108 [facility] Comment on above: Performed By: #### F ERR, LYTES, CALCM, BUNCR, IRON, TFERR, ALB, PHOS, PTHI #### Unless otherwise noted, all testing performed by [place] [address] CLIA: [id number] Gum Machine Operator: Eric Moser M.D. CO2 molar conc 26 mmol/L Normal 21-32 [facility] Comment on above: Performed By: #### F ERR, LYTES, CALCM, BUNCR, IRON, TFERR, ALB, PHOS, PTHI #### Unless otherwise noted, all testing performed by [place] [address] CLIA: [id number] Gum Machine Operator: Eric Moser M.D. Creatinine mass conc 1.14 mg/dL Normal 0.80-1.30 [facility] Comment on above: Performed By: #### F ERR, LYTES, CALCM, BUNCR, IRON, TFERR, ALB, PHOS, PTHI #### Unless otherwise noted, all testing performed by [place] [address] CLIA: [id number] Gum Machine Operator: Eric Moser M.D. GFR/1.73 sq M predicted among blacks MDRD vol rate/area (S/P/Bld) mL/min/{1.73_m2} Normal [facility] Comment on above: Result Comment: Afri can Brazilian GFR Calc Performed By: #### F ERR, LYTES, CALCM, BUNCR, IRON, TFERR, ALB, PHOS, PTHI #### Unless otherwise noted, all testing performed by [place] [address] CLIA: [id number] Gum Machine Operator: Eric Moser M.D. GFR/1.73 sq M predicted among non-blacks MDRD vol rate/area (S/P/Bld) mL/min/{1.73_m2} Normal [facility] Comment on above: Result Comment: Non- [...] Unless otherwise noted, all testing performed by [place] [address] CLIA: [id number] Gum Machine Operator: Eric Moser M.D. Glucose mass conc 105 mg/dL High 70-99 [facility] Comment on above: Result Comment: This test result might be falsely depressed or falsely elevated on samples drawn from patients taking Sulfasalazine and Sulfapyridine. Venipuncture should occur prior to taking either of these drugs. Performed By: #### F ERR, LYTES, CALCM, BUNCR, IRON, TFERR, ALB, PHOS, PTHI #### Unless otherwise noted, all testing performed by [place] [address] CLIA: [id number] Gum Machine Operator: Eric Moser M.D. Potassium molar conc 3.9 mmol/L Normal 3.5-5.1 [facility] Comment on above: Performed By: #### F ERR, LYTES, CALCM, BUNCR, IRON, TFERR, ALB, PHOS, PTHI #### Unless otherwise noted, all testing performed by [place] [address] CLIA: [id number] Gum Machine Operator: Eric Moser M.D. Protein mass conc 6.8 g/dL Normal 6.0-8.0 [facility] Comment on above: Performed By: #### F ERR, LYTES, CALCM, BUNCR, IRON, TFERR, ALB, PHOS, PTHI #### Unless otherwise noted, all testing performed by [place] [address] CLIA: [id number] Gum Machine Operator: Eric Moser M.D. Sodium molar conc 139 mmol/L Normal 135-145 [facility] Comment on above: Performed By: #### F ERR, LYTES, CALCM, BUNCR, IRON, TFERR, ALB, PHOS, PTHI #### Unless otherwise noted, all testing performed by [place] [address] CLIA: [id number] Gum Machine Operator: Eric Moser M.D. Urea nitrogen mass conc 19 mg/dL Normal 8-25 [facility] Comment on above: Performed By: #### F ERR, LYTES, CALCM, BUNCR, IRON, TFERR, ALB, PHOS, PTHI #### Unless otherwise noted, all testing performed by [place] [address] CLIA: [id number] Gum Machine Operator: Eric Moser M.D. Ferritinon 09-19-2018 Ferritin [Mass/volume] in Serum or Plasma 76 ng/mL Invalid Interpretation Code 30 - 400 ng/mL [facility] Comment on above: Samples from patient s routinely receiving high dose biotin therapy (100-300 mg/day) may show falsely decreased results. Please correlate clinically. Ferritin mass conc 76 ng/mL Normal 30-400 [facility] Comment on above: Result Comment: Samp les from patients routinely receiving high dose biotin therapy (100-300 mg/day) may show falsely decreased results. Please correlate clinically. Performed By: #### F ERR, LYTES, CALCM, BUNCR, IRON, TFERR, ALB, PHOS, PTHI #### Unless otherwise noted, all testing performed by [place] [address] CLIA: [id number] Gum Machine Operator: Eric Moser M.D. Reticulocyteon 09-19-2018 Reticulocytes 1.42 % Invalid Interpretation Code 0.5 - 1.7 % [facility] Reticulocyte 1.42 % Normal 0.5-1.7 [facility] Comment on above: Performed By: #### F ERR, LYTES, CALCM, BUNCR, IRON, TFERR, ALB, PHOS, PTHI #### Unless otherwise noted, all testing performed by [address] [place] [address] CLIA: [id number] Gum Machine Operator: Eric Moser M.D. SPINE LUMBAR 2 OR 3 VIEWSon 09-19-2018 SPINE LUMBAR 2 OR 3 VIEWS Final Report Accession No: [id number] Performed: Sep 19 2018 11:51AM Examination: [...] DONALD M.D. Trans: istumb : cc: Normal [facility] Albuminon 07-02-2018 Albumin mass conc 3.4 g/dL Normal 3.2-5.2 [facility] Comment on above: Performed By: #### F ERR, LYTES, CALCM, BUNCR, IRON, TFERR, ALB, PHOS, PTHI #### Unless otherwise noted, all testing performed by [address] [place] [address] CLIA: [id number] Gum Machine Operator: Eric Moser M.D. Albumin mass conc 3.4 g/dL Invalid Interpretation Code 3.2 - 5.2 g/dL [facility] BUN and Creatinineon 018 Creatinine mass conc 1.14 mg/dL Normal 0.80-1.30 [facility] Comment on above: Performed By: #### F ERR, LYTES, CALCM, BUNCR, IRON, TFERR, ALB, PHOS, PTHI #### Unless otherwise noted, all testing performed by [place] [address] CLIA: [id number] Gum Machine Operator: Eric Moser M.D. GFR/1.73 sq M predicted among blacks MDRD vol rate/area (S/P/Bld) mL/min/{1.73_m2} Normal [facility] Comment on above: Result Comment: Afri can Brazilian GFR Calc Performed By: #### F ERR, LYTES, CALCM, BUNCR, IRON, TFERR, ALB, PHOS, PTHI #### Unless otherwise noted, all testing performed by [place] [address] CLIA: [id number] Gum Machine Operator: Eric Moser M.D. GFR/1.73 sq M predicted among non-blacks MDRD vol rate/area (S/P/Bld) mL/min/{1.73_m2} Normal [facility] Comment on above: Result Comment: Non- [...] Unless otherwise noted, all testing performed by [place] [address] CLIA: [id number] Gum Machine Operator: Eric Moser M.D. Urea nitrogen mass conc 21 mg/dL Normal 8-25 [facility] Comment on above: Performed By: #### F ERR, LYTES, CALCM, BUNCR, IRON, TFERR, ALB, PHOS, PTHI #### Unless otherwise noted, all testing performed by [place] [address] CLIA: [id number] Gum Machine Operator: Eric Moser M.D. Calciumon 07-02-2018 Calcium mass conc 8.7 mg/dL Normal 8.4-10.2 [facility] Comment on above: Performed By: #### F ERR, LYTES, CALCM, BUNCR, IRON, TFERR, ALB, PHOS, PTHI #### Unless otherwise noted, all testing performed by [place] [address] CLIA: [id number] Gum Machine Operator: Eric Moser M.D. Calcium Levelon 07-02-2018 Calcium mass conc 8.7 mg/dL Invalid Interpretation Code 8.4 - 10.2 mg/dL [facility] Electrolyte Panelon 07-02-20 18 Chloride molar conc 108 mmol/L Invalid Interpretation Code 98 - 108 mmol/L [facility] CO2 molar conc 16 mmol/L Low 21 - 32 mmol/L [facility] Interpretation and review of laboratory results Abnormal Invalid Interpretation Code [facility] Potassium molar conc 4.2 mmol/L Invalid Interpretation Code 3.5 - 5.1 mmol/L [facility] Sodium molar conc 141 mmol/L Invalid Interpretation Code 135 - 145 mmol/L [facility] Electrolyteson 07-02-2018 Chloride molar conc 108 mmol/L Normal 98-108 [facility] Comment on above: Performed By: #### F ERR, LYTES, CALCM, BUNCR, IRON, TFERR, ALB, PHOS, PTHI #### Unless otherwise noted, all testing performed by [place] [address] CLIA: [id number] Gum Machine Operator: Eric Moser M.D. CO2 molar conc 16 mmol/L Low 21-32 [facility] Comment on above: Performed By: #### F ERR, LYTES, CALCM, BUNCR, IRON, TFERR, ALB, PHOS, PTHI #### Unless otherwise noted, all testing performed by [place] [address] CLIA: [id number] Gum Machine Operator: Eric Moser M.D. Potassium molar conc 4.2 mmol/L Normal 3.5-5.1 [facility] Comment on above: Performed By: #### F ERR, LYTES, CALCM, BUNCR, IRON, TFERR, ALB, PHOS, PTHI #### Unless otherwise noted, all testing performed by [place] [address] CLIA: [id number] Gum Machine Operator: Eric Moser M.D. Sodium molar conc 141 mmol/L Normal 135-145 [facility] Comment on above: Performed By: #### F ERR, LYTES, CALCM, BUNCR, IRON, TFERR, ALB, PHOS, PTHI #### Unless otherwise noted, all testing performed by [place] [address] CLIA: [id number] Gum Machine Operator: Eric Moser M.D. Hemoglobin and Hematocriton 07-02-2018 Hematocrit Auto Volume Fraction (Bld) 41.0 % Invalid Interpretation Code 37.9 - 49.2 % [facility] Hemoglobin mass conc (Bld) 13.9 g/dL Invalid Interpretation Code 12.9 - 16.9 g/dL [facility] Hgb and Hcton 07-02-2018 Hematocrit Volume Fraction (Bld) 41.0 % Normal 37.9-49.2 [facility] Comment on above: Performed By: #### F ERR, LYTES, CALCM, BUNCR, IRON, TFERR, ALB, PHOS, PTHI #### Unless otherwise noted, all testing performed by [place] [address] CLIA: [id number] Gum Machine Operator: Eric Moser M.D. Hemoglobin mass conc (Bld) 13.9 g/dL Normal 12.9-16.9 [facility] Comment on above: Performed By: #### F ERR, LYTES, CALCM, BUNCR, IRON, TFERR, ALB, PHOS, PTHI #### Unless otherwise noted, all testing performed by [place] [address] CLIA: [id number] Gum Machine Operator: Eric Moser M.D. Magnesiumon 07-02-2018 Magnesium mass conc 1.7 mg/dL Normal 1.6-2.4 [facility] Comment on above: Performed By: #### F ERR, LYTES, CALCM, BUNCR, IRON, TFERR, ALB, PHOS, PTHI #### Unless otherwise noted, all testing performed by [place] [address] CLIA: [id number] Gum Machine Operator: Eric Moser M.D. Magnesium Levelon 07-02-2018 Magnesium mass conc 1.7 mg/dL Invalid Interpretation Code 1.6 - 2.4 mg/dL [facility] Parathyroid Hormoneon 2017 Parathyroid Hormone 15.9 pg/mL Low 18.4-80.1 [facility] Comment on above: Result Comment: Samp les from patients routinely receiving high dose biotin therapy may show falsely depressed results. Additional information may be required for diagnosis. Performed By: #### F ERR, LYTES, CALCM, BUNCR, IRON, TFERR, ALB, PHOS, PTHI #### Unless otherwise noted, all testing performed by [place] [address] CLIA: [id number] Gum Machine Operator: Eric Moser M.D. Interpretation and review of laboratory results Abnormal Invalid Interpretation Code [facility] Parathyroid Hormone 15.9 pg/mL Low 18.4 - 8 0.1 pg/mL [facility] Comment on above: Samples from patient s routinely receiving high dose biotin therapy may show falsely depressed results. Additional information may be required for diagnosis. Phosphoruson 07-02-2018 Phosphate mass conc 3.7 mg/dL Normal 2.3-3.7 [facility] Comment on above: Performed By: #### F ERR, LYTES, CALCM, BUNCR, IRON, TFERR, ALB, PHOS, PTHI #### Unless otherwise noted, all testing performed by [place] [address] CLIA: [id number] Gum Machine Operator: Eric Moser M.D. Phosphate mass conc 3.7 mg/dL Invalid Interpretation Code 2.3 - 3.7 mg/dL [facility] Protein Panel, Urineon 07-02 Creatinine, Urine Random 161.00 mg/dL Normal [facility] Comment on above: Result Comment: No e stablished reference range. Performed By: #### F ERR, LYTES, CALCM, BUNCR, IRON, TFERR, ALB, PHOS, PTHI #### Unless otherwise noted, all testing performed by [place] [address] CLIA: [id number] Gum Machine Operator: Eric Moser M.D. Protein Creatinine Ratio 3.66 High 0.0-0.2 [facility] Comment on above: Performed By: #### F ERR, LYTES, CALCM, BUNCR, IRON, TFERR, ALB, PHOS, PTHI #### Unless otherwise noted, all testing performed by [address] [place] [address] CLIA: [id number] Gum Machine Operator: Eric Moser M.D. Protein mass conc (U) 589.2 mg/dL Normal [facility] Comment on above: Performed By: #### F ERR, LYTES, CALCM, BUNCR, IRON, TFERR, ALB, PHOS, PTHI #### Unless otherwise noted, all testing performed by [place] [address] CLIA: [id number] Gum Machine Operator: Eric Moser M.D. Creatinine, Urine Random 161.00 mg/dL Invalid Interpretation Code [facility] Comment on above: No established refer ence range. Interpretation and review of laboratory results Abnormal Invalid Interpretation Code [facility] Protein, Urine Random 589.2 mg/dL Invalid Interpretation Code [facility] Protein/Creatinine Ratio, Urine 3.66 High [facility] CBC and Differentialon 05-10 Basophils Auto #/vol (Bld) 0.1 K/mcL Invalid Interpretation Code 0 - 0.2 [facility] Basophils/100 WBC Auto (Bld) 1.5 % Invalid Interpretation Code [facility] Eosinophils 0.2 K/mcL Invalid Interpretation Code 0 - 0.5 [facility] Eosinophils/100 leukocytes 3.1 % Invalid Interpretation Code [facility] Erythrocyte distribution width Auto Ratio (RBC) 14.4 % High 10 - 14.3 % [facility] Erythrocytes (RBC) 3.87 M/mcL Low 4.0 - 5.5 [facility] Hematocrit (HCT) 39.9 % Invalid Interpretation Code 37.9 - 49.2 % [facility] Hemoglobin mass conc (Bld) 13.6 g/dL Normal 12.9-16.9 [facility] Comment on above: Performed By: #### F ERR, LYTES, CALCM, BUNCR, IRON, TFERR, ALB, PHOS, PTHI #### Unless otherwise noted, all testing performed by [place] [address] CLIA: [id number] Gum Machine Operator: Eric Moser M.D. Interpretation and review of laboratory results Abnormal Invalid Interpretation Code [facility] Lymphocytes 2.3 K/mcL Invalid Interpretation Code 0.9 - 3.6 [facility] Lymphocytes/100 leukocytes 36.0 % Invalid Interpretation Code [facility] MCH 35.1 pg High 27.7 - 34.6 pg [facility] MCHC mass conc (RBC) 34.1 g/dL Invalid Interpretation Code 32.9 - 35.5 g/dL [facility] MCV 103 fL High 82.8 - 99.3 [facility] Monocytes 0.6 K/mcL Invalid Interpretation Code 0.2 - 0.6 [facility] Monocytes/100 leukocytes 10.3 % Invalid Interpretation Code [facility] Neutrophils 3.1 K/mcL Invalid Interpretation Code 1.4 - 6.8 [facility] Platelet mean volume (PMV) 9.8 fL Invalid Interpretation Code 6.6 - 10.8 [facility] Platelets 159 K/mcL Invalid Interpretation Code 139 - 354 [facility] Segmented Neut 49.1 % Invalid Interpretation Code [facility] WBC (Leukocytes) 6.3 K/mcL Invalid Interpretation Code 3.6 - 10.4 [facility] CBC with Diffon 05-10-2018 Basophils #/vol (Bld) 0.1 K/mcL Normal 0-0.2 [facility] Comment on above: Performed By: #### F ERR, LYTES, CALCM, BUNCR, IRON, TFERR, ALB, PHOS, PTHI #### Unless otherwise noted, all testing performed by [place] [address] CLIA: [id number] Gum Machine Operator: Eric Moser M.D. Basophils/100 WBC (Bld) 1.5 % Normal [facility] Comment on above: Performed By: #### F ERR, LYTES, CALCM, BUNCR, IRON, TFERR, ALB, PHOS, PTHI #### Unless otherwise noted, all testing performed by [place] [address] CLIA: [id number] Gum Machine Operator: Eric Moser M.D. Eosinophils #/vol (Bld) 0.2 K/mcL Normal 0-0.5 [facility] Comment on above: Performed By: #### F ERR, LYTES, CALCM, BUNCR, IRON, TFERR, ALB, PHOS, PTHI #### Unless otherwise noted, all testing performed by [place] [address] CLIA: [id number] Gum Machine Operator: Eric Moser M.D. Eosinophils/100 WBC (Bld) 3.1 % Normal [facility] Comment on above: Performed By: #### F ERR, LYTES, CALCM, BUNCR, IRON, TFERR, ALB, PHOS, PTHI #### Unless otherwise noted, all testing performed by [place] [address] CLIA: [id number] Gum Machine Operator: Eric Moser M.D. Erythrocyte distribution width Ratio (RBC) 14.4 % High 10-14.3 [facility] Comment on above: Performed By: #### F ERR, LYTES, CALCM, BUNCR, IRON, TFERR, ALB, PHOS, PTHI #### Unless otherwise noted, all testing performed by [place] [address] CLIA: [id number] Gum Machine Operator: Eric Moser M.D. Hematocrit Volume Fraction (Bld) 39.9 % Normal 37.9-49.2 [facility] Comment on above: Performed By: #### F ERR, LYTES, CALCM, BUNCR, IRON, TFERR, ALB, PHOS, PTHI #### Unless otherwise noted, all testing performed by [place] [phone] CLIA: [id number] Gum Machine Operator: Eric Moser M.D. Lymphocytes #/vol (Bld) 2.3 K/mcL Normal 0.9-3.6 [facility] Comment on above: Performed By: #### F ERR, LYTES, CALCM, BUNCR, IRON, TFERR, ALB, PHOS, PTHI #### Unless otherwise noted, all testing performed by [place] [phone] CLIA: [id number] Gum Machine Operator: Eric Moser M.D. Lymphocytes/100 WBC (Bld) 36.0 % Normal [facility] Comment on above: Performed By: #### F ERR, LYTES, CALCM, BUNCR, IRON, TFERR, ALB, PHOS, PTHI #### Unless otherwise noted, all testing performed by [place] [phone] CLIA: [id number] Gum Machine Operator: Eric Moser M.D. MCH Entitic mass (RBC) 35.1 pg High 27.7-34.6 [facility] Comment on above: Performed By: #### F ERR, LYTES, CALCM, BUNCR, IRON, TFERR, ALB, PHOS, PTHI #### Unless otherwise noted, all testing performed by [place] [phone] CLIA: [id number] Gum Machine Operator: Eric Moser M.D. MCHC mass conc (RBC) 34.1 g/dL Normal 32.9-35.5 [facility] Comment on above: Performed By: #### F ERR, LYTES, CALCM, BUNCR, IRON, TFERR, ALB, PHOS, PTHI #### Unless otherwise noted, all testing performed by [place] [address] CLIA: [id number] Gum Machine Operator: Eric Moser M.D. MCV Entitic volume (RBC) 103.0 fL High 82.8-99.3 [facility] Comment on above: Performed By: #### F ERR, LYTES, CALCM, BUNCR, IRON, TFERR, ALB, PHOS, PTHI #### Unless otherwise noted, all testing performed by [place] [address] CLIA: [id number] Gum Machine Operator: Eric Moser M.D. Monocytes #/vol (Bld) 0.6 K/mcL Normal 0.2-0.6 [facility] Comment on above: Performed By: #### F ERR, LYTES, CALCM, BUNCR, IRON, TFERR, ALB, PHOS, PTHI #### Unless otherwise noted, all testing performed by [place] [address] CLIA: [id number] Gum Machine Operator: Eric Moser M.D. Monocytes/100 WBC (Bld) 10.3 % Normal [facility] Comment on above: Performed By: #### F ERR, LYTES, CALCM, BUNCR, IRON, TFERR, ALB, PHOS, PTHI #### Unless otherwise noted, all testing performed by [place] [address] CLIA: [id number] Gum Machine Operator: Eric Moser M.D. Neutrophils #/vol (Bld) 3.1 K/mcL Normal 1.4-6.8 [facility] Comment on above: Performed By: #### F ERR, LYTES, CALCM, BUNCR, IRON, TFERR, ALB, PHOS, PTHI #### Unless otherwise noted, all testing performed by [place] [address] CLIA: [id number] Gum Machine Operator: Eric Moser M.D. Platelet mean volume Entitic volume (Bld) 9.8 fL Normal 6.6-10.8 [facility] Comment on above: Performed By: #### F ERR, LYTES, CALCM, BUNCR, IRON, TFERR, ALB, PHOS, PTHI #### Unless otherwise noted, all testing performed by [place] [address] CLIA: [id number] Gum Machine Operator: Eric Moser M.D. Platelets #/vol (Bld) 159 K/mcL Normal 139-354 [facility] Comment on above: Performed By: #### F ERR, LYTES, CALCM, BUNCR, IRON, TFERR, ALB, PHOS, PTHI #### Unless otherwise noted, all testing performed by [place] [address] CLIA: [id number] Gum Machine Operator: Eric Moser M.D. RBC #/vol (Bld) 3.87 M/mcL Low 4.0-5.5 [facility] Comment on above: Performed By: #### F ERR, LYTES, CALCM, BUNCR, IRON, TFERR, ALB, PHOS, PTHI #### Unless otherwise noted, all testing performed by [place] [address] CLIA: [id number] Gum Machine Operator: Eric Moser M.D. Segmented Neut % 49.1 % Normal [facility] Comment on above: Performed By: #### F ERR, LYTES, CALCM, BUNCR, IRON, TFERR, ALB, PHOS, PTHI #### Unless otherwise noted, all testing performed by [place] [address] CLIA: [id number] Gum Machine Operator: Eric Moser M.D. WBC #/vol (Bld) 6.3 K/mcL Normal 3.6-10.4 [facility] Comment on above: Performed By: #### F ERR, LYTES, CALCM, BUNCR, IRON, TFERR, ALB, PHOS, PTHI #### Unless otherwise noted, all testing performed by [place] [address] CLIA: [id number] Gum Machine Operator: Eric Moser M.D. [facility] Metabolic [facility] 05-10-2018 Alanine aminotransferase (ALT) 30 U/L Normal 14-65 [facility] Comment on above: This test result alfredo [...] Unless otherwise noted, all testing performed by [place] [address] CLIA: [id number] Gum Machine Operator: Eric Moser M.D. Albumin 3.4 g/dL Normal 3.2-5.2 [facility] Comment on above: Performed By: #### F ERR, LYTES, CALCM, BUNCR, IRON, TFERR, ALB, PHOS, PTHI #### Unless otherwise noted, all testing performed by [place] [address] CLIA: [id number] Gum Machine Operator: Eric Moser M.D. Alkaline phosphatase (ALP) 48 U/L Normal 40-150 [facility] Comment on above: Performed By: #### F ERR, LYTES, CALCM, BUNCR, IRON, TFERR, ALB, PHOS, PTHI #### Unless otherwise noted, all testing performed by [place] [address] CLIA: [id number] Gum Machine Operator: Eric Moser M.D. Aspartate aminotransferase (AST) 26 U/L Normal 0-45 [facility] Comment on above: This test result alfredo [...] Unless otherwise noted, all testing performed by [place] [address] CLIA: [id number] Gum Machine Operator: Eric Moser M.D. Bilirubin (total) 0.6 mg/dL Normal 0.3-1.2 [facility] Comment on above: Performed By: #### F ERR, LYTES, CALCM, BUNCR, IRON, TFERR, ALB, PHOS, PTHI #### Unless otherwise noted, all testing performed by [place] [address] CLIA: [id number] Gum Machine Operator: Eric Moser M.D. Calcium 9.2 mg/dL Normal 8.4-10.2 [facility] Comment on above: Performed By: #### F ERR, LYTES, CALCM, BUNCR, IRON, TFERR, ALB, PHOS, PTHI #### Unless otherwise noted, all testing performed by [place] [address] CLIA: [id number] Gum Machine Operator: Eric Moser M.D. Chloride 106 mmol/L Normal 98-108 [facility] Comment on above: Performed By: #### F ERR, LYTES, CALCM, BUNCR, IRON, TFERR, ALB, PHOS, PTHI #### Unless otherwise noted, all testing performed by [place] [address] CLIA: [id number] Gum Machine Operator: Eric Moser M.D. CO2 24 mmol/L Normal 21-32 [facility] Comment on above: Performed By: #### F ERR, LYTES, CALCM, BUNCR, IRON, TFERR, ALB, PHOS, PTHI #### Unless otherwise noted, all testing performed by [place] [address] CLIA: [id number] Gum Machine Operator: Eric Moser M.D. Creatinine 1.26 mg/dL Normal 0.80-1.30 [facility] Comment on above: Performed By: #### F ERR, LYTES, CALCM, BUNCR, IRON, TFERR, ALB, PHOS, PTHI #### Unless otherwise noted, all testing performed by [facility] [place] [address] CLIA: [id number] Gum Machine Operator: Eric Moser M.D. eGFR (black) mL/min/{1.73_m2} Normal [facility] Comment on above: GFR Calc Result Comment: Afri can Brazilian GFR Calc Performed By: #### F ERR, LYTES, CALCM, BUNCR, IRON, TFERR, ALB, PHOS, PTHI #### Unless otherwise noted, all testing performed by [place] [address] CLIA: [id number] Gum Machine Operator: Eric Moser M.D. eGFR (non-black) 57 mL/min/{1.73_m2} Low >60 [facility] Comment on above: Non- GFR Calc [...] Unless otherwise noted, all testing performed by [place] [address] CLIA: [id number] Gum Machine Operator: Eric Moser M.D. Glucose mass conc 81 mg/dL Normal 70-99 [facility] Comment on above: This test result [...] Unless otherwise noted, all testing performed by [place] [address] CLIA: [id number] Gum Machine Operator: Eric Moser M.D. Potassium molar conc 4.5 mmol/L Normal 3.5-5.1 [facility] Comment on above: Performed By: #### F ERR, LYTES, CALCM, BUNCR, IRON, TFERR, ALB, PHOS, PTHI #### Unless otherwise noted, all testing performed by [place] [address] CLIA: [id number] Gum Machine Operator: Eric Moser M.D. Protein 7.0 g/dL Normal 6.0-8.0 [facility] Comment on above: Performed By: #### F ERR, LYTES, CALCM, BUNCR, IRON, TFERR, ALB, PHOS, PTHI #### Unless otherwise noted, all testing performed by [place] [address] CLIA: [id number] Gum Machine Operator: Eric Moser M.D. Sodium 140 mmol/L Normal 135-145 [facility] Comment on above: Performed By: #### F ERR, LYTES, CALCM, BUNCR, IRON, TFERR, ALB, PHOS, PTHI #### Unless otherwise noted, all testing performed by [place] [address] CLIA: [id number] Gum Machine Operator: Eric Moser M.D. Urea nitrogen 19 mg/dL Normal 8-25 [facility] Comment on above: Performed By: #### F ERR, LYTES, CALCM, BUNCR, IRON, TFERR, ALB, PHOS, PTHI #### Unless otherwise noted, all testing performed by [place] [address] CLIA: [id number] Gum Machine Operator: Eric Moser M.D. Ferritinon 05-10-2018 Ferritin 58 ng/mL Invalid Interpretation Code 30 - 400 ng/mL [facility] Comment on above: Samples from patient s routinely receiving high dose biotin therapy (100-300 mg/day) may show falsely decreased results. Please correlate clinically. Ferritin mass conc 58 ng/mL Normal 30-400 [facility] Comment on above: Result Comment: Samp les from patients routinely receiving high dose biotin therapy (100-300 mg/day) may show falsely decreased results. Please correlate clinically. Performed By: #### F ERR, LYTES, CALCM, BUNCR, IRON, TFERR, ALB, PHOS, PTHI #### Unless otherwise noted, all testing performed by [place] [address] CLIA: [id number] Gum Machine Operator: Eric Moser M.D. Reticulocyteon 05-10-2018 Reticulocyte 1.72 % High 0.5-1.7 [facility] Comment on above: Performed By: #### F ERR, LYTES, CALCM, BUNCR, IRON, TFERR, ALB, PHOS, PTHI #### Unless otherwise noted, all testing performed by [place] [address] CLIA: [id number] Gum Machine Operator: Eric Moser M.D. Reticulocytes 1.72 % High 0.5 - 1.7 % [facility] Segmental doppler lower extr emity arterialon 05-07-2018 Segmental doppler lower extremity arterial Non-Invasive Vascular Patient: TONIO Oseguera [facility] Rec#: [id number] (Age): 1950(68y) Study Date: 05/07/2018 Room#: Type: Outpatient Sex: M Reading: Tristen Menjivar MD, RPVI Referring: Tristen Menjivar MD Care Connector: Michelle Osie RVForrest Procedure Info: [id number] Study Quality: Lower Arterial Doppler: adequate Diagnosis: [...] Tristen Menjivar MD, RPVI Invalid Interpretation Code [facility] Segmental doppler lower extremity arterial Interface, Rad In [facility] 05/07/2018 5:28 PM EDT Non-Invasive Vascular Patient: TONIO Oseguera [facility] Rec#: [id number] (Age): 1950(68y) Study Date: 05/07/2018 Room#: Type: Outpatient Sex: M Reading: Tristen Menjivar MD, RPVI Referring: Tristen Menjivar MD Care Connector: Michelle Osei RVT Procedure Info: [id number] Study Quality: Lower Arterial Doppler: adequate Diagnosis: [...] Basophils #/vol (Bld) 0.0 E3/mcL Normal 0.0-0.2 [facility] Comment on above: Order Comment: Order Added by Discern Expert. Performed By: #### 2 [id number] #### YENNY MoyaHemo [address] [place] [address] Basophils/100 WBC (Bld) 0.7 % Normal 0.0-2.0 [facility] Comment on above: Order Comment: Order Added by Discern Expert. Performed By: #### 2 [id number] #### YENNY MoyaHemo [address] [place] [address] Eos Absolute 0.3 E3/mcL Normal 0.0-0.7 [facility] Comment on above: Order Comment: Order Added by Discern Expert. Performed By: #### 2 [id number] #### YENNY MoyaHemo [address] [place] [address] Eosinophils/100 WBC (Bld) 4.4 % Normal 0.0-11.0 [facility] Comment on above: Order Comment: Order Added by Discern Expert. Performed By: #### 2 [id number] #### YENNY RemHemo [address] [place] [address] Lymphocytes #/vol (Bld) 1.9 E3/mcL Normal 1.2-3.4 [facility] Comment on above: Order Comment: Order Added by Discern Expert. Performed By: #### 2 [id number] #### YENNY RemHemo [address] [place] [address] Lymphocytes/100 WBC (Bld) 30.8 % Normal 20.0-55.0 [facility] Comment on above: Order Comment: Order Added by Discern Expert. Performed By: #### 2 [id number] #### YENNY RemHemo [address] [place] [address] Pl[place] Absolute 0.5 E3/mcL Normal 0.0-0.7 [facility] Comment on above: Order Comment: Order Added by [place]iles Expert. Performed By: #### 2 [id number] #### YENNY RemHemo [address] [place] [address] Monocytes/100 WBC (Bld) 8.6 % Normal 0.0-10.0 [facility] Comment on above: Order Comment: Order Added by Discern Expert. Performed By: #### 2 [id number] #### YENNY RemHemo [address] [place] [address] Neutro Absolute 3.5 E3/mcL Normal 1.4-6.5 [facility] Comment on above: Order Comment: Order Added by Giles Expert. Performed By: #### 2 [id number] #### YENNY RemHemo [address] [place] [address] Neutro Auto 55.5 % Normal 37.0-75.0 [facility] Comment on above: Order Comment: Order Added by Giles Expert. Performed By: #### 2 630775 #### YENNY RemHemo [address] [place] [address] CBC w/ Auto Diffon 8 Erythrocyte distribution width Ratio (RBC) 14.4 % Normal 11.5-14.5 [facility] Comment on above: Performed By: #### 2 863668 #### YENNY RemHemo [address] [place] [address] Hematocrit Volume Fraction (Bld) 38.9 % Low 42.0-52.0 [facility] Comment on above: Performed By: #### 2 503990 #### YENNY RemHemo [address] [place] [address] Hemoglobin mass conc (Bld) 13.2 g/dL Low 13.5-18.0 [facility] Comment on above: Performed By: #### 2 [id number] #### YENNY RemHemo [address] [place] [address] MCH Entitic mass (RBC) 34.4 pg High 27.0-31.0 [facility] Comment on above: Performed By: #### 2 510679 #### YENNY RemHemo [address] [place] [address] MCHC mass conc (RBC) 34.0 g/dL Normal 33.0-37.0 [facility] Comment on above: Performed By: #### 2 368820 #### YENNY RemHemo [address] [place] [address] MCV Entitic volume (RBC) 101.2 fL High 78.0-100.0 [facility] Comment on above: Performed By: #### 2 713064 #### YENNY RemHemo [address] [place] [address] Platelet mean volume Entitic volume (Bld) 9.7 fL Normal 7.4-11.0 [facility] Comment on above: Performed By: #### 2 596570 #### YENNY RemHemo [address] [place] [address] Platelets #/vol (Bld) 169 E3/mcL Normal 130-400 [facility] Comment on above: Performed By: #### 2 288659 #### YENNY RemHemo [address] [place] [address] RBC #/vol (Bld) 3.84 E6/mcL Low 3.90-6.10 [facility] Comment on above: Performed By: #### 2 637792 #### YENNY RemHemo [address] [place] [address] WBC #/vol (Bld) 6.2 E3/mcL Normal 3.6-11.0 [facility] Comment on above: Performed By: #### 2 058063 #### YENNY MoyaHemo [address] [place] [address] CMPon 04-25-2018 Albumin mass conc 3.3 g/dL Normal 3.2-5.0 [facility] Comment on above: Performed By: #### 2 503000 #### YENNY MoyaChem [address] [place] [address] Albumin/Globulin mass ratio 1.1 {ratio} Normal 1.1-1.9 [facility] Comment on above: Performed By: #### 2 400404 #### YENNY MoyaChem [address] [place] [address] Alk Phos 45 Int._Unit/L Normal 42-121 [facility] Comment on above: Performed By: #### 2 680711 #### YENNY MoyaChem [address] [place] [address] ALT enzyme act/vol 21 Int._Unit/L Normal 10-40 [facility] Comment on above: Performed By: #### 2 590907 #### YENNY [facility] [place] [address] AST enzyme act/vol 24 Int._Unit/L Normal 10-42 [facility] Comment on above: Performed By: #### 2 698665 #### YENNY [facility] [address] [place] [address] Bili Total 0.8 mg/dL Normal 0.2-1.0 [facility] Comment on above: Performed By: #### 2 207999 #### YENNY MoyaChem [address] [place] [address] Creatinine mass conc 1.4 mg/dL High 0.6-1.3 [facility] Comment on above: Performed By: #### 2 713461 #### YENNY MoyaChem [address] [place] [address] Globulin mass conc (S) 2.9 g/dL Normal 2.0-4.0 [facility] Comment on above: Performed By: #### 2 194147 #### YENNY MoyaChem [address] [place] [address] Protein mass conc 6.2 g/dL Low 6.4-8.3 [facility] Comment on above: Performed By: #### 2 627922 #### YENNY RemChem [address] [place] [address] Urea nitrogen mass conc 25 mg/dL High 7-18 [facility] Comment on above: Performed By: #### 2 074315 #### YENNY RemChem [address] [place] [address] Urea nitrogen/Creatinine mass ratio 17.9 ratio Normal 5.4-30.0 [facility] Comment on above: Performed By: #### 2 505514 #### YENNY RemChem [address] [place] [address] Calcium mass conc 8.9 mg/dL Normal 8.4-10.2 [facility] Comment on above: Performed By: #### 2 735228 #### YENNY Rem[facility] [address] [place] [address] Chloride molar conc 105 mmol/L Normal 98-107 [facility] Comment on above: Performed By: #### 2 760362 #### YENNY Rem[facility] [address] [place] [address] CO2 molar conc 26.1 mmol/L Normal 24.0-30.0 [facility] Comment on above: Performed By: #### 2 124585 #### YENNY Rem[employer] [address] [place] [address] Glucose mass conc 62 mg/dL Low 70-99 [facility] Comment on above: Performed By: #### 2 146197 #### YENNY Rem[facility] [address] [place] [address] Potassium molar conc 4.5 mmol/L Normal 3.5-5.1 [facility] Comment on above: Performed By: #### 2 653326 #### YENNY RemChem [address] [place] [address] Sodium molar conc 139 mmol/L Normal 136-145 [facility] Comment on above: Performed By: #### 2 209011 #### YENNY Rem[facility] [address] [place] [address] StbE4vid 04-25-2018 Hemoglobin A1c/Hemoglobin.total mass fraction (Bld) 6.2 % Normal 4.0-6.3 [facility] Comment on above: Performed By: #### 5 [id number] #### YENNY POC Subsection [address] [place] [address] Lipid Profileon 04-25-2018 Cholesterol in HDL mass conc 47 mg/dL Normal >=41 [facility] Comment on above: Performed By: #### 3 [id number] #### YENNY Rem[employer] [address] [place] [address] Cholesterol in LDL mass conc 115 mg/dL Normal 0-130 [facility] Comment on above: Result Comment: <100 OPTIMAL 100-129 NEAR / ABOVE OPTIMAL 130-159 BORDERLINE HIGH 160-189 HIGH >190 VERY HIGH CALC LDL NOT VALID WHEN TRIGLYCERIDE IS >400 MG/DL Performed By: #### 3 [id number] #### YENNY [facility] [address] [place] [address] Cholesterol in VLDL mass conc 24 mg/dL Normal [facility] Comment on above: Performed By: #### 3 [id number] #### YENNY Rem[employer] [address] [place] [address] Cholesterol mass conc 186 mg/dL Normal 50-200 [facility] Comment on above: Result Comment: TOTA L CHOLEESTEROL: <200 NORMAL 200 - 239 BORDERLINE HIGH >240 HIGH Performed By: #### 3 [id number] #### YENNY [employer] [address] [place] [address] Triglyceride mass conc 118 mg/dL Normal 35-150 [facility] Comment on above: Result Comment: <150 NORMAL 150-199 BORDERLINE HIGH 200-499 HIGH >500 VERY HIGH Performed By: #### 3 [id number] #### YENNY [facility] [address] [place] [address] Magnesiumon 04-25-2018 Magnesium mass conc 1.7 mg/dL Normal 1.7-2.8 [facility] Comment on above: Performed By: #### 2 068120 #### YENNY RemChem [address] [place] [address] Microalb/Creat Ratioon 04-25 Creatinine mass conc 110.0 mg/dL Normal 20.0-300.0 [facility] Comment on above: Performed By: #### 5 [id number] #### YENNY POC Subsection [address] [place] [address] Creatinine mass conc 1123 ug/mg High 0-30 [facility] Comment on above: Performed By: #### 5 [id number] #### YENNY POC Subsection [address] [place] [address] Ur Microalbumin 123.5 mg/dL High 0.0-1.9 [facility] Comment on above: Performed By: #### 5 [id number] #### YENNY POC Subsection [address] [place] [address] eGFRon 04-25-2018 GFR/1.73 sq M predicted among non-blacks MDRD vol rate/area (S/P/Bld) mL/min/{1.73_m2} [facility] Comment on above: Order Comment: Order added by Discern Expert. Performed By: #### 1 [id number] #### YENNY [employer] [address] [place] [address] GFR/1.73 sq M predicted among non-blacks MDRD vol rate/area (S/P/Bld) 50 mL/min/1.73 m2 [facility] Comment on above: Order Comment: Order added by Discern Expert. Performed By: #### 1 [id number] #### YENNY Rem[employer] [address] [place] [address] C Woundon 04-10-2018 C Wound Final Report: [...] : <=4 S SXT : <=2/38 [facility] Comment on above: Performed By: #### 2 [id number] #### YENNY Microbiology Subsection [address] [place] [address] CT Thorax w/o Contraston CT Thorax w/o [...] pm Signed by: Seven Garrido MD Technologist: MLL Normal [facility] Albuminon 12-20-2017 Albumin 3.4 g/dL Normal 3.2-5.2 [facility] Comment on above: Performed By: #### F ERR, LYTES, CALCM, BUNCR, IRON, TFERR, ALB, PHOS, PTHI #### Unless otherwise noted, all testing performed by [facility] [address] [place], [place] [address] CLIA: [id number] Gum Machine Operator: Eric Moser M.D. BUN and Creatinineon 018 Creatinine 1.19 mg/dL Normal 0.80-1.30 [facility] Comment on above: Performed By: #### F ERR, LYTES, CALCM, BUNCR, IRON, TFERR, ALB, PHOS, PTHI #### Unless otherwise noted, all testing performed by [place] [address] CLIA: [id number] Gum Machine Operator: Eric Moser M.D. eGFR (black) mL/min/{1.73_m2} Normal [facility] Comment on above: Result Comment: Afri can Brazilian GFR Calc Performed By: #### F ERR, LYTES, CALCM, BUNCR, IRON, TFERR, ALB, PHOS, PTHI #### Unless otherwise noted, all testing performed by [place] [address] CLIA: [id number] Gum Machine Operator: Eric Moser M.D. eGFR (non-black) mL/min/{1.73_m2} Normal [facility] Comment on above: Result Comment: Non- GFR [...] Unless otherwise noted, all testing performed by [place] [address] CLIA: [id number] Gum Machine Operator: Eric Moser M.D. Urea nitrogen 15 mg/dL Normal 8-25 [facility] Comment on above: Performed By: #### F ERR, LYTES, CALCM, BUNCR, IRON, TFERR, ALB, PHOS, PTHI #### Unless otherwise noted, all testing performed by [place] [address] CLIA: [id number] Gum Machine Operator: Eric Moser M.D. CBC and Differentialon 12-20 Basophils 0.7 % Invalid Interpretation Code [facility] Basophils 0.0 K/mcL Invalid Interpretation Code 0 - 0.2 [facility] Eosinophils 0.2 K/mcL Invalid Interpretation Code 0 - 0.5 [facility] Erythrocytes (RBC) 3.41 M/mcL Low 4.0 - 5.5 [facility] Hematocrit (HCT) 35.0 % Low 37.9 - 49.2 % [facility] Hemoglobin (HGB) 12.1 g/dL Low 12.9-16.9 [facility] Comment on above: Performed By: #### R ETIC, ELPRS, IMMFRLTC, CBCDIF, IFIXSI #### Unless otherwise noted, all testing performed by [place] [address] CLIA: [id number] Gum Machine Operator: Eric Moser M.D. Lymphocytes 2.0 K/mcL Invalid Interpretation Code 0.9 - 3.6 [facility] MCH 35.4 pg High 27.7 - 34.6 pg [facility] MCHC 34.5 g/dL Invalid Interpretation Code 32.9 - 35.5 g/dL [facility] MCV 102.4 fL High 82.8 - 99.3 [facility] Monocytes 0.5 K/mcL Invalid Interpretation Code 0.2 - 0.6 [facility] Neutrophils 4.2 K/mcL Invalid Interpretation Code 1.4 - 6.8 [facility] Platelet mean volume (PMV) 9.6 fL Invalid Interpretation Code 6.6 - 10.8 [facility] Platelets 201 K/mcL Invalid Interpretation Code 139 - 354 [facility] RDW-CA 12.5 % Invalid Interpretation Code 10 - 14.3 % [facility] Segmented Neut 60.2 % Invalid Interpretation Code [facility] T8 suppressor/100 cells 2.4 10*3/uL Invalid Interpretation Code [facility] T8 suppressor/100 cells 28.9 10*3/uL Invalid Interpretation Code [facility] T8 suppressor/100 cells 7.8 10*3/uL Invalid Interpretation Code [facility] WBC (Leukocytes) 6.9 K/mcL Invalid Interpretation Code 3.6 - 10.4 [facility] CBC with Diffon 12-20-2017 Basophils #/vol (Bld) 0.0 K/mcL Normal 0-0.2 [facility] Comment on above: Performed By: #### R ETIC, ELPRS, IMMFRLTC, CBCDIF, IFIXSI #### Unless otherwise noted, all testing performed by [place] [address] CLIA: [id number] Gum Machine Operator: Eric Moser M.D. Basophils/100 WBC (Bld) 0.7 % Normal [facility] Comment on above: Performed By: #### R ETIC, ELPRS, IMMFRLTC, CBCDIF, IFIXSI #### Unless otherwise noted, all testing performed by [place] [address] CLIA: [id number] Gum Machine Operator: Eric Moser M.D. Eosinophils #/vol (Bld) 0.2 K/mcL Normal 0-0.5 [facility] Comment on above: Performed By: #### R ETIC, ELPRS, IMMFRLTC, CBCDIF, IFIXSI #### Unless otherwise noted, all testing performed by [place] [address] CLIA: [id number] Gum Machine Operator: Eric Moser M.D. Eosinophils/100 WBC (Bld) 2.4 % Normal [facility] Comment on above: Performed By: #### R ETIC, ELPRS, IMMFRLTC, CBCDIF, IFIXSI #### Unless otherwise noted, all testing performed by [place] [address] CLIA: [id number] Gum Machine Operator: Eric Moser M.D. Erythrocyte distribution width Ratio (RBC) 12.5 % Normal 10-14.3 [facility] Comment on above: Performed By: #### R ETIC, ELPRS, IMMFRLTC, CBCDIF, IFIXSI #### Unless otherwise noted, all testing performed by [place] [address] CLIA: [id number] Gum Machine Operator: Eric Moser M.D. Hematocrit Volume Fraction (Bld) 35.0 % Low 37.9-49.2 [facility] Comment on above: Performed By: #### R ETIC, ELPRS, IMMFRLTC, CBCDIF, IFIXSI #### Unless otherwise noted, all testing performed by [place] [address] CLIA: [id number] Gum Machine Operator: Eric Moser M.D. Lymphocytes #/vol (Bld) 2.0 K/mcL Normal 0.9-3.6 [facility] Comment on above: Performed By: #### R ETIC, ELPRS, IMMFRLTC, CBCDIF, IFIXSI #### Unless otherwise noted, all testing performed by [place] [address] CLIA: [id number] Gum Machine Operator: Eric Moser M.D. Lymphocytes/100 WBC (Bld) 28.9 % Normal [facility] Comment on above: Performed By: #### R ETIC, ELPRS, IMMFRLTC, CBCDIF, IFIXSI #### Unless otherwise noted, all testing performed by [place] [address] CLIA: [id number] Gum Machine Operator: Eric Moser M.D. MCH Entitic mass (RBC) 35.4 pg High 27.7-34.6 [facility] Comment on above: Performed By: #### R ETIC, ELPRS, IMMFRLTC, CBCDIF, IFIXSI #### Unless otherwise noted, all testing performed by [place] [address] CLIA: [id number] Gum Machine Operator: Eric Moser M.D. MCHC mass conc (RBC) 34.5 g/dL Normal 32.9-35.5 [facility] Comment on above: Performed By: #### R ETIC, ELPRS, IMMFRLTC, CBCDIF, IFIXSI #### Unless otherwise noted, all testing performed by [place] [address] CLIA: [id number] Gum Machine Operator: Eric Moser M.D. MCV Entitic volume (RBC) 102.4 fL High 82.8-99.3 [facility] Comment on above: Performed By: #### R ETIC, ELPRS, IMMFRLTC, CBCDIF, IFIXSI #### Unless otherwise noted, all testing performed by [place] [address] CLIA: [id number] Gum Machine Operator: Eric Moser M.D. Monocytes #/vol (Bld) 0.5 K/mcL Normal 0.2-0.6 [facility] Comment on above: Performed By: #### R ETIC, ELPRS, IMMFRLTC, CBCDIF, IFIXSI #### Unless otherwise noted, all testing performed by [place] [address] CLIA: [id number] Gum Machine Operator: Eric Moser M.D. Monocytes/100 WBC (Bld) 7.8 % Normal [facility] Comment on above: Performed By: #### R ETIC, ELPRS, IMMFRLTC, CBCDIF, IFIXSI #### Unless otherwise noted, all testing performed by [place] [address] CLIA: [id number] Gum Machine Operator: Eric Moser M.D. Neutrophils #/vol (Bld) 4.2 K/mcL Normal 1.4-6.8 [facility] Comment on above: Performed By: #### R ETIC, ELPRS, IMMFRLTC, CBCDIF, IFIXSI #### Unless otherwise noted, all testing performed by [place] [address] CLIA: [id number] Gum Machine Operator: Eric Moser M.D. Platelet mean volume Entitic volume (Bld) 9.6 fL Normal 6.6-10.8 [facility] Comment on above: Performed By: #### R ETIC, ELPRS, IMMFRLTC, CBCDIF, IFIXSI #### Unless otherwise noted, all testing performed by [place] [address] CLIA: [id number] Gum Machine Operator: Eric Moser M.D. Platelets #/vol (Bld) 201 K/mcL Normal 139-354 [facility] Comment on above: Performed By: #### R ETIC, ELPRS, IMMFRLTC, CBCDIF, IFIXSI #### Unless otherwise noted, all testing performed by [place] [address] CLIA: [id number] Gum Machine Operator: Eric Moser M.D. RBC #/vol (Bld) 3.41 M/mcL Low 4.0-5.5 [facility] Comment on above: Performed By: #### R ETIC, ELPRS, IMMFRLTC, CBCDIF, IFIXSI #### Unless otherwise noted, all testing performed by [place] [address] CLIA: [id number] Gum Machine Operator: Eric Moser M.D. Segmented Neut % 60.2 % Normal [facility] Comment on above: Performed By: #### R ETIC, ELPRS, IMMFRLTC, CBCDIF, IFIXSI #### Unless otherwise noted, all testing performed by [place] [address] CLIA: [id number] Gum Machine Operator: Eric Moser M.D. WBC #/vol (Bld) 6.9 K/mcL Normal 3.6-10.4 [facility] Comment on above: Performed By: #### R ETIC, ELPRS, IMMFRLTC, CBCDIF, IFIXSI #### Unless otherwise noted, all testing performed by [place] [address] CLIA: [id number] Gum Machine Operator: Eric Moser M.D. Calcium Levelon 12-20-2017 Calcium 8.7 mg/dL Normal 8.4-10.2 [facility] Comment on above: Performed By: #### F ERR, LYTES, CALCM, BUNCR, IRON, TFERR, ALB, PHOS, PTHI #### Unless otherwise noted, all testing performed by [place] [address] CLIA: [id number] Gum Machine Operator: Eric Moser M.D. Electrolyte Panelon 12-20-19 18 Chloride 108 mmol/L Normal 98-108 [facility] Comment on above: Performed By: #### F ERR, LYTES, CALCM, BUNCR, IRON, TFERR, ALB, PHOS, PTHI #### Unless otherwise noted, all testing performed by [place] [address] CLIA: [id number] Gum Machine Operator: Eric Moser M.D. CO2 26 mmol/L Normal 21-32 [facility] Comment on above: Performed By: #### F ERR, LYTES, CALCM, BUNCR, IRON, TFERR, ALB, PHOS, PTHI #### Unless otherwise noted, all testing performed by [place] [address] CLIA: [id number] Gum Machine Operator: Eric Moser M.D. Potassium 3.9 mmol/L Normal 3.5-5.1 [facility] Comment on above: Performed By: #### F ERR, LYTES, CALCM, BUNCR, IRON, TFERR, ALB, PHOS, PTHI #### Unless otherwise noted, all testing performed by [place] [address] CLIA: [id number] Gum Machine Operator: Eric Moser M.D. Sodium 140 mmol/L Normal 135-145 [facility] Comment on above: Performed By: #### F ERR, LYTES, CALCM, BUNCR, IRON, TFERR, ALB, PHOS, PTHI #### Unless otherwise noted, all testing performed by [address] [place], [place] [address] CLIA: [id number] Gum Machine Operator: Eric Moser M.D. Ferritinon 12-20-2017 Ferritin 95 ng/mL Invalid Interpretation Code 30 - 400 ng/mL [facility] Ferritin mass conc 95 ng/mL Normal 30-400 [facility] Comment on above: Result Comment: Samp les from patients routinely receiving high dose biotin therapy (100-300 mg/day) may show falsely decreased results. Please correlate clinically. Performed By: #### F ERR, LYTES, CALCM, BUNCR, IRON, TFERR, ALB, PHOS, PTHI #### Unless otherwise noted, all testing performed by [place] [phone] CLIA: [id number] Gum Machine Operator: Eric Moser M.D. Immunofixationon 12-20-2017 Comments (IFIXS) Normal [facility] Comment on above: Result Comment: No p araproteins detected. A negative serum immunofixation and/or serum protein electrophoresis is insufficient to rule out a monoclonal protein. Recommend serum free light chains if clinically indicated. Reviewed by Pathologist: Hayes House MD. Test Performed by [facility] [address] [place] [address] Performed By: #### F ERR, LYTES, CALCM, BUNCR, IRON, TFERR, ALB, PHOS, PTHI #### Unless otherwise noted, all testing performed by [place] [address] CLIA: [id number] Gum Machine Operator: Eric Moser M.D. Immunofixation Normal Normal Normal [facility] Comment on above: Performed By: #### F ERR, LYTES, CALCM, BUNCR, IRON, TFERR, ALB, PHOS, PTHI #### Unless otherwise noted, all testing performed by [place] [address] CLIA: [id number] Gum Machine Operator: Eric Moser M.D. Immunoglobulin Free Lt Chain son 12-20-2017 [place] Free Light Chains 2.57 mg/dL High 0.3300-1.94 [facility] Comment on above: Performed By: #### F ERR, LYTES, CALCM, BUNCR, IRON, TFERR, ALB, PHOS, PTHI #### Unless otherwise noted, all testing performed by [place] [address] CLIA: [id number] Gum Machine Operator: Eric Moser M.D. [place]-Lambda Ratio 1.21 Normal 0.2600-1.65 [facility] Comment on above: Result Comment: Test Performed by: [place] [address] Performed By: #### F ERR, LYTES, CALCM, BUNCR, IRON, TFERR, ALB, PHOS, PTHI #### Unless otherwise noted, all testing performed by [place] [address] CLIA: [id number] Gum Machine Operator: Eric Moser M.D. Lambda Free Light Chain 2.13 mg/dL Normal 0.5700-2.63 [facility] Comment on above: Performed By: #### F ERR, LYTES, CALCM, BUNCR, IRON, TFERR, ALB, PHOS, PTHI #### Unless otherwise noted, all testing performed by [place] [address] CLIA: [id number] Gum Machine Operator: Eric Moser M.D. Ironon 12-20-2017 Interpretation and review of laboratory results Abnormal Invalid Interpretation Code [facility] Iron 64 ug/dL Low 65 - 175 [facility] Iron, Totalon 12-20-2017 Iron, Total 64 mcg/dL Low 65-175 [facility] Comment on above: Performed By: #### F ERR, LYTES, CALCM, BUNCR, IRON, TFERR, ALB, PHOS, PTHI #### Unless otherwise noted, all testing performed by [place] [address] CLIA: [id number] Gum Machine Operator: Eric Moser M.D. Parathyroid Hormoneon 2017 Parathyroid Hormone 25.4 pg/mL Normal 18.4-80.1 [facility] Comment on above: Result Comment: Samp les from patients routinely receiving high dose biotin therapy may show falsely depressed results. Additional information may be required for diagnosis. Performed By: #### F ERR, LYTES, CALCM, BUNCR, IRON, TFERR, ALB, PHOS, PTHI #### Unless otherwise noted, all testing performed by [place] [address] CLIA: [id number] Gum Machine Operator: Eric Moser M.D. Phosphoruson 12-20-2017 Phosphate 2.8 mg/dL Normal 2.3-3.7 [facility] Comment on above: Performed By: #### F ERR, LYTES, CALCM, BUNCR, IRON, TFERR, ALB, PHOS, PTHI #### Unless otherwise noted, all testing performed by [place] [address] CLIA: [id number] Gum Machine Operator: Eric Moser M.D. Protein Electrophoresis, Ser umon 12-20-2017 Albumin mass conc 3.5 g/dL Normal 3.1-5.5 [facility] Comment on above: Performed By: #### F ERR, LYTES, CALCM, BUNCR, IRON, TFERR, ALB, PHOS, PTHI #### Unless otherwise noted, all testing performed by [address] [place], [place] [address] CLIA: [id number] Gum Machine Operator: Eric Moser M.D. Alpha-1 0.3 g/dL Normal 0.2-0.5 [facility] Comment on above: Performed By: #### F ERR, LYTES, CALCM, BUNCR, IRON, TFERR, ALB, PHOS, PTHI #### Unless otherwise noted, all testing performed by [place] [address] CLIA: [id number] Gum Machine Operator: Eric Moser M.D. Alpha-2 0.8 g/dL Normal 0.4-1.1 [facility] Comment on above: Performed By: #### F ERR, LYTES, CALCM, BUNCR, IRON, TFERR, ALB, PHOS, PTHI #### Unless otherwise noted, all testing performed by [place] [address] CLIA: [id number] Gum Machine Operator: Eric Moser M.D. Beta 1.2 g/dL Normal 0.6-1.3 [facility] Comment on above: Performed By: #### F ERR, LYTES, CALCM, BUNCR, IRON, TFERR, ALB, PHOS, PTHI #### Unless otherwise noted, all testing performed by [place] [address] CLIA: [id number] Gum Machine Operator: Eric Moser M.D. Comment (SPE) Reviewed by patholog ist: Hayes House M.D. [facility] Comment on above: Performed By: #### F ERR, LYTES, CALCM, BUNCR, IRON, TFERR, ALB, PHOS, PTHI #### Unless otherwise noted, all testing performed by [address] [place], [place] [address] CLIA: [id number] Gum Machine Operator: Eric Moser M.D. Gamma 0.9 g/dL Normal 0.6-1.8 [facility] Comment on above: Performed By: #### F ERR, LYTES, CALCM, BUNCR, IRON, TFERR, ALB, PHOS, PTHI #### Unless otherwise noted, all testing performed by [place] [phone] CLIA: [id number] Gum Machine Operator: Eric Moser M.D. Interpretation ([facility]) Normal [facility] Comment on above: Result Comment: Norm al pattern. Serum protein electrophoresis is insufficient to rule out a monoclonal protein. Recommend serum immunofixation and serum free light chains if clinically indicated. Test Performed by [facility] [address] [place] [address] Performed By: #### F ERR, LYTES, CALCM, BUNCR, IRON, TFERR, ALB, PHOS, PTHI #### Unless otherwise noted, all testing performed by [place] [phone] CLIA: [id number] Gum Machine Operator: Eric Moser M.D. Protein mass conc 6.6 g/dL Normal 6.0-8.0 [facility] Comment on above: Performed By: #### F ERR, LYTES, CALCM, BUNCR, IRON, TFERR, ALB, PHOS, PTHI #### Unless otherwise noted, all testing performed by [place] [phone] CLIA: [id number] Gum Machine Operator: Eric Moser M.D. Protein Panel, Urineon 12-20 Creatinine, Urine Random 74.00 mg/dL Normal [facility] Comment on above: Result Comment: No e stablished reference range. Performed By: #### F ERR, LYTES, CALCM, BUNCR, IRON, TFERR, ALB, PHOS, PTHI #### Unless otherwise noted, all testing performed by [place] [address] CLIA: [id number] Gum Machine Operator: Eric Moser M.D. Interpretation and review of laboratory results Abnormal Invalid Interpretation Code [facility] Protein Creatinine Ratio 2.26 High 0.0-0.2 [facility] Comment on above: Performed By: #### F ERR, LYTES, CALCM, BUNCR, IRON, TFERR, ALB, PHOS, PTHI #### Unless otherwise noted, all testing performed by [place] [address] CLIA: [id number] Gum Machine Operator: Eric Moser M.D. Protein mass conc (U) 167.4 mg/dL Normal [facility] Comment on above: Performed By: #### F ERR, LYTES, CALCM, BUNCR, IRON, TFERR, ALB, PHOS, PTHI #### Unless otherwise noted, all testing performed by [place] [address] CLIA: [id number] Gum Machine Operator: Eric Moser M.D. Protein, Urine Random 167.4 mg/dL Invalid Interpretation Code [facility] Protein/Creatinine Ratio, Urine 2.26 1 High 0.0 - 0.2 [facility] Reticulocyteon 12-20-2017 Interpretation and review of laboratory results Abnormal Invalid Interpretation Code [facility] Reticulocyte 1.85 % High 0.5-1.7 [facility] Comment on above: Performed By: #### F ERR, LYTES, CALCM, BUNCR, IRON, TFERR, ALB, PHOS, PTHI #### Unless otherwise noted, all testing performed by [address] [place], [place] [address] CLIA: [id number] Gum Machine Operator: Eric Moser M.D. Reticulocytes 1.85 % High 0.5 - 1.7 % [facility] Transferrinon 12-20-2017 Transferrin 257.0 mg/dL Normal 212.0-360.0 [facility] Comment on above: Performed By: #### F ERR, LYTES, CALCM, BUNCR, IRON, TFERR, ALB, PHOS, PTHI #### Unless otherwise noted, all testing performed by [place] [address] CLIA: [id number] Gum Machine Operator: Eric Moser M.D. SMITH Teston 12-19-2017 SMITH Test Negative Normal Negative [facility] Comment on above: Performed By: #### [id number] #### YENNY Misc Micro SubSection , Glucose POCon 12-18-2017 Glucose mass conc 99 mg/dL Normal 70-99 [facility] Comment on above: Performed By: #### [id number] #### YENNY POC Subsection [address] [place] [address] Comprehensive Metabolic Pane [facility] 08-17-2017 Albumin mass conc 3.6 g/dL Invalid Interpretation Code 3.2 - 5.2 g/dL [facility] ALP enzyme act/vol 77 U/L Invalid Interpretation Code 40 - 150 U/L [facility] ALT enzyme act/vol 28 U/L Invalid Interpretation Code 14 - 65 U/L [facility] Comment on above: This test result alfredo ht be falsely depressed or falsely elevated on samples drawn from patients taking Sulfasalazine and Sulfapyridine. Venipuncture should occur prior to taking either of these drugs. AST enzyme act/vol 22 U/L Invalid Interpretation Code 0 - 45 U/L [facility] Comment on above: This test result alfredo ht be falsely depressed or falsely elevated on samples drawn from patients taking Sulfasalazine and Sulfapyridine. Venipuncture should occur prior to taking either of these drugs. Bilirubin mass conc 0.2 mg/dL Low 0.3 - 1. 2 mg/dL [facility] Calcium mass conc 9.0 mg/dL Invalid Interpretation Code 8.4 - 10.2 mg/dL [facility] Chloride molar conc 113 mmol/L High 98 - 108 mmol/L [facility] CO2 molar conc 17 mmol/L Low 21 - 32 mmol/L [facility] Creatinine mass conc 1.36 mg/dL High 0.8 - 1 .3 mg/dL [facility] GFR/1.73 sq M predicted among blacks MDRD vol rate/area (S/P/Bld) mL/min/{1.73_m2} Invalid Interpretation Code ml/min/1.73s q.m [facility] Comment on above: GFR Calc GFR/1.73 sq M predicted among non-blacks MDRD vol rate/area (S/P/Bld) 52 mL/min/{1.73_m2} Low >60 [facility] Comment on above: Non- GFR Calc eGFR [...] Invalid Interpretation Code 70 - 99 mg/dL [facility] Comment on above: This test result alfredo ht be falsely depressed or falsely elevated on samples drawn from patients taking Sulfasalazine and Sulfapyridine. Venipuncture should occur prior to taking either of these drugs. Interpretation and review of laboratory results Abnormal Invalid Interpretation Code [facility] Potassium molar conc 4.4 mmol/L Invalid Interpretation Code 3.5 - 5.1 mmol/L [facility] Protein mass conc 7.7 g/dL Invalid Interpretation Code 6 - 8 g/dL [facility] Sodium molar conc 141 mmol/L Invalid Interpretation Code 135 - 145 mmol/L [facility] Urea nitrogen mass conc 28 mg/dL High 8 - 25 mg/dL [facility] Ferritinon 08-17-2017 Ferritin [Mass/volume] in Serum or Plasma 87 ng/mL Invalid Interpretation Code 30 - 400 ng/mL [facility] Reticulocyteon 08-17-2017 Reticulocytes 1.44 % Invalid Interpretation Code 0.5 - 1.7 % [facility] Vitamin B12 and Folateson Cobalamin (Vitamin B12) mass conc 825 pg/mL Invalid Interpretation Code 193 - 986 pg/mL [facility] Folate >20.0 High 3.1 - 17.5 ng/mL [facility] Vital Signs Date Time Vital Sign Value Performing Clinician Facility 04-10-2025 17:27-0400 Body temperature 98 [degF] Dr. Phyllis Mae MD Work Phone: 3(412)117-655266 [place] [address] 04-10-2025 17:27-0400 Diastolic blood pressure 66 mm[Hg] Dr. Phyllis Mae MD Work Phone: 0(582)[phone] [place] [address] 04-10-2025 17:27-0400 Heart rate 62 /min Dr. Phyllis Mae MD Work Phone: 3(466)342-580622 [place] [address] 04-10-2025 17:27-0400 Respiratory rate 17 /min Dr. Phyllis Mae MD Work Phone: 2(829)344-877366 [place] [address] 04-10-2025 17:27-0400 SaO2% (BldA) [Mass fraction] 98 % Dr. Phyllis Mae MD Work Phone: 2(668)548-678966 [place] [address] 04-10-2025 17:27-0400 Systolic blood pressure 151 mm[Hg] Dr. Phyllis Mae MD Work Phone: 8(300)756-001966 [place] [address] 04-10-2025 15:19-0400 Body mass index (BMI) [Ratio] 21.7 kg/m2 Dr. Phyllis Mae MD Work Phone: 3(420)937-000966 [place] [address] 04-10-2025 15:19-0400 Body weight 62.[address] Phyllis Mae MD Work Phone: 8(106)669-176322 [place] [address] 04-10-2025 15:18-0400 Body height 170.[address] Phyllis Mae MD Work Phone: 2(319)234-059766 [place] [address] 01-02-2025 13:34-0500 Diastolic blood pressure 50 mm[Hg] CJ Hassmann DPM Work Phone: [facility] 01-02-2025 13:34-0500 Heart rate 75 /min CJ Hassmann DPM Work Phone: [facility] 01-02-2025 13:34-0500 Systolic blood pressure 95 mm[Hg] CJ Hassmann DPM Work Phone: [facility] 01-02-2025 13:31-0500 Body height 167.6 cm CJ Hassmann DPM Work Phone: [facility] 01-02-2025 13:31-0500 Body mass index (BMI) [Ratio] 22.92 kg/m2 CJ Hassmann DPM Work Phone: [facility] 01-02-2025 13:31-0500 Body temperature 97 [degF] CJ Hassmann DPM Work Phone: [facility] 01-02-2025 13:31-0500 Body weight 64.41 kg CJ Hassmann DPM Work Phone: [facility] 01-02-2025 13:31-0500 Respiratory rate 16 /min CJ Hassmann DPM Work Phone: [facility] 01-02-2025 13:31-0500 SaO2% (BldA) [Mass fraction] 97 % CJ Hassmann DPM Work Phone: [facility] 12-05-2024 12:45-0500 Body height 167.6 cm Phyllis Mae MD Work Phone: [facility] 12-05-2024 12:45-0500 Body mass index (BMI) [Ratio] 23.05 kg/m2 Phyllis Mae MD Work Phone: [facility] 12-05-2024 12:45-0500 Body weight 64.77 kg Phyllis Mae MD Work Phone: [facility] 12-05-2024 12:45-0500 Diastolic blood pressure 58 mm[Hg] Phyllis Mae MD Work Phone: [facility] 12-05-2024 12:45-0500 Heart rate 67 /min Phyllis Mae MD Work Phone: [facility] 12-05-2024 12:45-0500 SaO2% (BldA) [Mass fraction] 94 % Phyllis Mae MD Work Phone: [facility] 12-05-2024 12:45-0500 Systolic blood pressure 87 mm[Hg] Phyllis Mae MD Work Phone: [facility] 11-05-2024 13:04-0500 Body height 167.6 cm Phyllis Mae MD Work Phone: [facility] 11-05-2024 13:04-0500 Body mass index (BMI) [Ratio] 23.27 kg/m2 Phyllis Mae MD Work Phone: 1(707)172-935144 [place] [address] 11-05-2024 13:04-0500 Body weight 65.41 kg Phyllis Mae MD Work Phone: [facility] 11-05-2024 13:04-0500 Diastolic blood pressure 74 mm[Hg] Phyllis Mae MD Work Phone: [facility] 11-05-2024 13:04-0500 Heart rate 74 /min Phyllis Mae MD Work Phone: [facility] 11-05-2024 13:04-0500 SaO2% (BldA) [Mass fraction] 93 % Phyllis Mae MD Work Phone: [facility] 11-05-2024 13:04-0500 Systolic blood pressure 136 mm[Hg] Phyllis Mae MD Work Phone: [facility] 10-03-2024 14:48-0500 Diastolic blood pressure 79 mm[Hg] Cameron Munguia III, DO Work Phone: [facility] 10-03-2024 14:48-0500 Heart rate 60 /min WVito Maiske III, DO Work Phone: [facility] 10-03-2024 14:48-0500 Systolic blood pressure 155 mm[Hg] WVito Craske III, DO Work Phone: [facility] 10-03-2024 14:42-0500 Body height 167.6 cm WVito Maiske III, DO Work Phone: [facility] 10-03-2024 14:42-0500 Body mass index (BMI) [Ratio] 22.92 kg/m2 WVito Maiske III, DO Work Phone: [facility] 10-03-2024 14:42-0500 Body weight 64.41 kg WVito Maiske III, DO Work Phone: [facility] 10-03-2024 13:14-0500 Body temperature 98.71 [degF] CJ Hassmann DPM Work Phone: [facility] 10-03-2024 13:14-0500 Diastolic blood pressure 72 mm[Hg] CJ Hassmann DPM Work Phone: [facility] 10-03-2024 13:14-0500 Heart rate 63 /min CJ Hassmann DPM Work Phone: [facility] 10-03-2024 13:14-0500 Systolic blood pressure 115 mm[Hg] CJ Hassmann DPM Work Phone: [facility] 09-09-2024 15:18-0500 Body height 167.6 cm Aquiles Herrera MD Work Phone: [facility] 09-09-2024 15:18-0500 Body mass index (BMI) [Ratio] 22.92 kg/m2 Aquiles Herrera MD Work Phone: [facility] 09-09-2024 15:18-0500 Body weight 64.41 kg Aquiles Herrera MD Work Phone: [facility] 09-09-2024 15:18-0500 Diastolic blood pressure 69 mm[Hg] Aquiles Herrera MD Work Phone: [facility] 09-09-2024 15:18-0500 Heart rate 59 /min Aquiles Herrera MD Work Phone: [facility] 09-09-2024 15:18-0500 SaO2% (BldA) [Mass fraction] 96 % Aquiles Herrera MD Work Phone: [facility] 09-09-2024 15:18-0500 Systolic blood pressure 129 mm[Hg] Aquiles Herrera MD Work Phone: [facility] 09-09-2024 13:51-0500 Body mass index (BMI) [Ratio] 22.92 kg/m2 Fior Forbes CNP Work Phone: [facility] 09-09-2024 13:51-0500 Body weight 64.41 kg Fior Forbes CNP Work Phone: [facility] 09-09-2024 13:51-0500 Diastolic blood pressure 69 mm[Hg] Fior Forbes CNP Work Phone: [facility] 09-09-2024 13:51-0500 Heart rate 59 /min Fior Forbes CNP Work Phone: [facility] 09-09-2024 13:51-0500 Systolic blood pressure 129 mm[Hg] Fior Forbes CNP Work Phone: [facility] 07-25-2024 12:52-0400 Body height 167.6 cm Phyllis Mae MD Work Phone: [facility] 07-25-2024 12:52-0400 Body mass index (BMI) [Ratio] 23.73 kg/m2 Phyllis Mae MD Work Phone: [facility] 07-25-2024 12:52-0400 Body weight 66.68 kg Phyllis Mae MD Work Phone: [facility] 07-25-2024 12:52-0400 Diastolic blood pressure 69 mm[Hg] Phyllis Mae MD Work Phone: [facility] 07-25-2024 12:52-0400 Heart rate 82 /min Phyllis Mae MD Work Phone: [facility] 07-25-2024 12:52-0400 Systolic blood pressure 105 mm[Hg] Phyllis Mae MD Work Phone: [facility] 06-27-2024 14:08-0400 Body temperature 98.4 [degF] CJ Hassmann DPM Work Phone: [facility] 06-27-2024 14:08-0400 Diastolic blood pressure 59 mm[Hg] CJ Hassmann DPM Work Phone: [facility] 06-27-2024 14:08-0400 Heart rate 71 /min CJ Hassmann DPM Work Phone: [facility] 06-27-2024 14:08-0400 SaO2% (BldA) [Mass fraction] 94 % CJ Hassmann DPM Work Phone: [facility] 06-27-2024 14:08-0400 Systolic blood pressure 96 mm[Hg] CJ Hassmann DPM Work Phone: [facility] 05-14-2024 10:25-0400 Body temperature 98.49 [degF] CJ Hassmann DPM Work Phone: [facility] 05-14-2024 10:25-0400 Diastolic blood pressure 71 mm[Hg] CJ Hassmann DPM Work Phone: [facility] 05-14-2024 10:25-0400 Heart rate 93 /min CJ Hassmann DPM Work Phone: [facility] 05-14-2024 10:25-0400 SaO2% (BldA) [Mass fraction] 92 % CJ Hassmann DPM Work Phone: [facility] 05-14-2024 10:25-0400 Systolic blood pressure 108 mm[Hg] CJ Hassmann DPM Work Phone: [facility] 05-07-2024 14:32-0400 Body mass index (BMI) [Ratio] 23.86 kg/m2 David Waters TELEPHONE MECHANIC Work Phone: [facility] 05-07-2024 14:32-0400 Body weight 67.04 kg David Waters TELEPHONE MECHANIC Work Phone: [facility] 05-07-2024 14:32-0400 Diastolic blood pressure 71 mm[Hg] David Waters TELEPHONE MECHANIC Work Phone: [facility] 05-07-2024 14:32-0400 Heart rate 78 /min David Waters TELEPHONE MECHANIC Work Phone: [facility] 05-07-2024 14:32-0400 SaO2% (BldA) [Mass fraction] 94 % David Waters TELEPHONE MECHANIC Work Phone: [facility] 05-07-2024 14:32-0400 Systolic blood pressure 121 mm[Hg] David Waters TELEPHONE MECHANIC Work Phone: [facility] 03-26-2024 13:31-0400 Body temperature 98.4 [degF] CJ Hassmann DPM Work Phone: [facility] 03-26-2024 13:31-0400 Diastolic blood pressure 73 mm[Hg] CJ Hassmann DPM Work Phone: [facility] 03-26-2024 13:31-0400 Heart rate 68 /min CJ Hassmann DPM Work Phone: [facility] 03-26-2024 13:31-0400 SaO2% (BldA) [Mass fraction] 94 % CJ Hassmann DPM Work Phone: [facility] 03-26-2024 13:31-0400 Systolic blood pressure 110 mm[Hg] CJ Hassmann DPM Work Phone: [facility] 02-27-2024 13:37-0400 Body height 167.6 cm Phyllis Mae MD Work Phone: [facility] 02-27-2024 13:37-0400 Body mass index (BMI) [Ratio] 23.57 kg/m2 Phyllis Mae MD Work Phone: [facility] 02-27-2024 13:37-0400 Body weight 66.22 kg Phyllis Mae MD Work Phone: [facility] 02-27-2024 13:37-0400 Diastolic blood pressure 51 mm[Hg] Phyllis Mae MD Work Phone: [facility] 02-27-2024 13:37-0400 Heart rate 70 /min Phyllis Mae MD Work Phone: [facility] 02-27-2024 13:37-0400 Systolic blood pressure 93 mm[Hg] Phyllis Mae MD Work Phone: [facility] 02-22-2024 12:44-0400 Body height 167.6 cm Scott Lambert PA-C Work Phone: 3(941)[phone] [place] [address] 02-22-2024 12:44-0400 Body mass index (BMI) [Ratio] 22.76 kg/m2 Scott Lambert PA-C Work Phone: [facility] 02-22-2024 12:44-0400 Body temperature 98.01 [degF] Scott Lambert PA-C Work Phone: [facility] 02-22-2024 12:44-0400 Body weight 63.96 kg Scott Lambert PA-C Work Phone: [facility] 02-22-2024 12:44-0400 Diastolic blood pressure 44 mm[Hg] Scott Lambert PA-C Work Phone: [facility] 02-22-2024 12:44-0400 Heart rate 80 /min Scott Lambert PA-C Work Phone: [facility] 02-22-2024 12:44-0400 Respiratory rate 19 /min Scott Lambert PA-C Work Phone: [facility] 02-22-2024 12:44-0400 SaO2% (BldA) [Mass fraction] 96 % Scott Warren PA-C Work Phone: [facility] 02-22-2024 12:44-0400 Systolic blood pressure 65 mm[Hg] Scott Warren PA-C Work Phone: [facility] 12-19-2023 14:02-0500 Body temperature 98.4 [degF] CJ Hassmann DPM Work Phone: [facility] 12-19-2023 14:02-0500 Diastolic blood pressure 61 mm[Hg] CJ Hassmann DPM Work Phone: [facility] 12-19-2023 14:02-0500 Heart rate 79 /min CJ Hassmann DPM Work Phone: [facility] 12-19-2023 14:02-0500 Systolic blood pressure 105 mm[Hg] CJ Hassmann DPM Work Phone: [facility] 12-14-2023 12:52-0500 Body height 167.6 cm Phyllis Mae MD Work Phone: [facility] 12-14-2023 12:52-0500 Body mass index (BMI) [Ratio] 22.76 kg/m2 Phyllis Mae MD Work Phone: [facility] 12-14-2023 12:52-0500 Body weight 63.96 kg Phyllis Mae MD Work Phone: [facility] 12-14-2023 12:52-0500 Diastolic blood pressure 67 mm[Hg] Phyllis Mae MD Work Phone: [facility] 12-14-2023 12:52-0500 Heart rate 62 /min Phyllis Mae MD Work Phone: [facility] 12-14-2023 12:52-0500 Systolic blood pressure 112 mm[Hg] Phyllis Mae MD Work Phone: [facility] 10-18-2023 12:56-0500 Diastolic blood pressure 83 mm[Hg] Fior Forbes CNP Work Phone: [facility] 10-18-2023 12:56-0500 Heart rate 88 /min Fior Forbes TELEPHONE MECHANIC Work Phone: [facility] 10-18-2023 12:56-0500 Systolic blood pressure 135 mm[Hg] Fior Forbes CNP Work Phone: [facility] 10-18-2023 12:49-0500 Body mass index (BMI) [Ratio] 23.98 kg/m2 Fior Forbes CNP Work Phone: [facility] 10-18-2023 12:49-0500 Body weight 67.41 kg Fior Forbes CNP Work Phone: [facility] 10-11-2023 12:52-0500 Body height 167.6 cm Deshaun Rodrigues MD Work Phone: [facility] 10-11-2023 12:52-0500 Body mass index (BMI) [Ratio] 23.89 kg/m2 Deshaun Rodrigues MD Work Phone: [facility] 10-11-2023 12:52-0500 Body weight 67.13 kg Deshaun Rodrigues MD Work Phone: [facility] 10-11-2023 12:52-0500 Diastolic blood pressure 70 mm[Hg] Deshaun Rodrigues MD Work Phone: [facility] 10-11-2023 12:52-0500 Heart rate 75 /min Deshaun Rodrigues MD Work Phone: [facility] 10-11-2023 12:52-0500 Respiratory rate 16 /min Deshaun Rodrigues MD Work Phone: [facility] 10-11-2023 12:52-0500 SaO2% (BldA) [Mass fraction] 97 % Deshaun Rodrigues MD Work Phone: [facility] 10-11-2023 12:52-0500 Systolic blood pressure 105 mm[Hg] Deshaun Rodrigues MD Work Phone: [facility] 08-22-2023 13:22-0400 Body height 167.6 cm Phyllis Mae MD Work Phone: [facility] 08-22-2023 13:22-0400 Body mass index (BMI) [Ratio] 24.21 kg/m2 Phyllis Mae MD Work Phone: [facility] 08-22-2023 13:22-0400 Body weight 68.04 kg Phyllis Mae MD Work Phone: [facility] 08-22-2023 13:22-0400 Diastolic blood pressure 62 mm[Hg] Phyllis Mae MD Work Phone: [facility] 08-22-2023 13:22-0400 Heart rate 67 /min Phyllis Mae MD Work Phone: [facility] 08-22-2023 13:22-0400 SaO2% (BldA) [Mass fraction] 92 % Phyllis Mae MD Work Phone: [facility] 08-22-2023 13:22-0400 Systolic blood pressure 114 mm[Hg] Phyllis Mae MD Work Phone: [facility] 07-12-2023 12:49-0400 Body height 167.6 cm Arianna Ream TELEPHONE MECHANIC Work Phone: [facility] 07-12-2023 12:49-0400 Body mass index (BMI) [Ratio] 24.37 kg/m2 Arianna Ream TELEPHONE MECHANIC Work Phone: [facility] 07-12-2023 12:49-0400 Body weight 68.49 kg Arianna Ream TELEPHONE MECHANIC Work Phone: [facility] 07-12-2023 12:49-0400 Diastolic blood pressure 65 mm[Hg] Arianna Ream TELEPHONE MECHANIC Work Phone: [facility] 07-12-2023 12:49-0400 Heart rate 70 /min Arianna Ream TELEPHONE MECHANIC Work Phone: [facility] 07-12-2023 12:49-0400 SaO2% (BldA) [Mass fraction] 95 % Arianna Ream TELEPHONE MECHANIC Work Phone: [facility] 07-12-2023 12:49-0400 Systolic blood pressure 119 mm[Hg] Arianna Askewam TELEPHONE MECHANIC Work Phone: [facility] 04-05-2023 14:10-0400 Body height 167.6 cm Deshaun Rodrigues MD Work Phone: [facility] 04-05-2023 14:10-0400 Body mass index (BMI) [Ratio] 25.82 kg/m2 Deshaun Rodrigues MD Work Phone: [facility] 04-05-2023 14:10-0400 Body weight 72.58 kg Deshaun Rodrigues MD Work Phone: [facility] 04-05-2023 14:10-0400 Diastolic blood pressure 58 mm[Hg] Deshaun Rodrigues MD Work Phone: [facility] 04-05-2023 14:10-0400 Heart rate 62 /min Deshaun Rodrigues MD Work Phone: [facility] 04-05-2023 14:10-0400 Respiratory rate 16 /min Deshaun Rodrigues MD Work Phone: [facility] 04-05-2023 14:10-0400 SaO2% (BldA) [Mass fraction] 96 % Deshaun Rodrigues MD Work Phone: [facility] 04-05-2023 14:10-0400 Systolic blood pressure 101 mm[Hg] Deshaun Rodrigues MD Work Phone: [facility] 03-07-2023 13:42-0400 Body height 167.6 cm Phyllis Mae MD Work Phone: [facility] 03-07-2023 13:42-0400 Body mass index (BMI) [Ratio] 23.89 kg/m2 Phyllis Mae MD Work Phone: [facility] 03-07-2023 13:42-0400 Body weight 67.13 kg Phyllis Mae MD Work Phone: [facility] 03-07-2023 13:42-0400 Diastolic blood pressure 78 mm[Hg] Phyllis Mae MD Work Phone: [facility] 03-07-2023 13:42-0400 Heart rate 60 /min Phyllis Mae MD Work Phone: [facility] 03-07-2023 13:42-0400 Systolic blood pressure 132 mm[Hg] Phyllis Mae MD Work Phone: [facility] 11-09-2022 17:01-0500 Body height 170.1 cm Phyllis Mae Other Phone: [facility] 11-09-2022 17:01-0500 Body temperature 98.06 [degF] Phyllis Mae Other Phone: [facility] 11-09-2022 17:01-0500 Diastolic blood pressure 61 mm[Hg] Phyllis Mae Other Phone: [facility] 11-09-2022 17:01-0500 Heart rate 68 /min Phyllis Mae Other Phone: [facility] 11-09-2022 17:01-0500 Respiratory rate 23 /min Phyllis Mae Other Phone: [facility] 11-09-2022 17:01-0500 SaO2% (BldA) [Mass fraction] 96 % Phyllis Mae Other Phone: [facility] 11-09-2022 17:01-0500 Systolic blood pressure 97 mm[Hg] Phyllis Mae Other Phone: [facility] 09-20-2022 12:54-0500 Body height 167.64 cm Phyllis Mae Work Phone: [facility] Work Phone: 09-20-2022 12:54-0500 Body mass index (BMI) [Ratio] 24.37 kg/m2 Phyllis Mae Work Phone: [facility] Work Phone: 09-20-2022 12:54-0500 Body surface area Derived from formula 1.77 m2 Phyllis Mae Work Phone: [facility] Work Phone: 09-20-2022 12:54-0500 Body weight 68.49 kg Phyllis Mae Work Phone: [facility] Work Phone: 09-20-2022 12:54-0500 Diastolic blood pressure 76 mm[Hg] Phyllis Mae Work Phone: [facility] Work Phone: 09-20-2022 12:54-0500 Heart rate 84 /min Phyllis Mae Work Phone: [facility] Work Phone: 09-20-2022 12:54-0500 Systolic blood pressure 110 mm[Hg] Phyllis Mae Work Phone: [facility] Work Phone: 06-16-2022 12:41-0400 Diastolic blood pressure 72 mm[Hg] Deshaun Rodrigues MD Work Phone: [facility] 06-16-2022 12:41-0400 Heart rate 78 /min Deshaun Rodrigues MD Work Phone: [facility] 06-16-2022 12:41-0400 Respiratory rate 16 /min Deshaun Rodrigues MD Work Phone: [facility] 06-16-2022 12:41-0400 SaO2% (BldA) [Mass fraction] 95 % Deshaun Rodrigues MD Work Phone: [facility] 06-16-2022 12:41-0400 Systolic blood pressure 129 mm[Hg] Deshaun Rodrigues MD Work Phone: [facility] 06-10-2022 11:10-0400 Body height 170.2 cm Erica Kendra PA-C Work Phone: [facility] 06-10-2022 11:10-0400 Body mass index (BMI) [Ratio] 23.96 kg/m2 Erica Kendra PA-C Work Phone: [facility] 06-10-2022 11:10-0400 Body weight 69.4 kg Erica Kendra PA-C Work Phone: [facility] 06-10-2022 11:10-0400 Diastolic blood pressure 66 mm[Hg] Erica Kendra PA-C Work Phone: [facility] 06-10-2022 11:10-0400 Heart rate 79 /min Erica Kendra PA-C Work Phone: [facility] 06-10-2022 11:10-0400 Systolic blood pressure 116 mm[Hg] Erica Kendra PA-C Work Phone: [facility] 06-02-2022 15:31-0400 Body height 170.2 cm Aquiles Herrera MD Work Phone: [facility] 06-02-2022 15:31-0400 Body mass index (BMI) [Ratio] 24.28 kg/m2 Aquiles Herrera MD Work Phone: [facility] 06-02-2022 15:31-0400 Body weight 70.31 kg Aquiles Herrera MD Work Phone: [facility] 06-02-2022 15:31-0400 Diastolic blood pressure 72 mm[Hg] Aquiles Herrera MD Work Phone: [facility] 06-02-2022 15:31-0400 Heart rate 85 /min Aquiles Herrera MD Work Phone: [facility] 06-02-2022 15:31-0400 SaO2% (BldA) [Mass fraction] 93 % Aquiles Herrera MD Work Phone: [facility] 06-02-2022 15:31-0400 Systolic blood pressure 122 mm[Hg] Aquiles Herrera MD Work Phone: [facility] 03-29-2022 11:38-0400 Body height 167.64 cm Phyllis Taverasabi Work Phone: [facility] Work Phone: 03-29-2022 11:38-0400 Body mass index (BMI) [Ratio] 24.37 kg/m2 Phyllis Zarrabi Work Phone: [facility] Work Phone: 03-29-2022 11:38-0400 Body surface area Derived from formula 1.77 m2 Phyllisallie Mae Work Phone: [facility] Work Phone: 03-29-2022 11:38-0400 Body weight 68.49 kg Phyllis Mae Work Phone: [facility] Work Phone: 03-29-2022 11:38-0400 Diastolic blood pressure 74 mm[Hg] Phyllis Taverasabi Work Phone: [facility] Work Phone: 03-29-2022 11:38-0400 Heart rate 79 /min Phyllis Zarrabi Work Phone: [facility] Work Phone: 03-29-2022 11:38-0400 SaO2% (BldA) [Mass fraction] 97 % Phyllis Zarrabi Work Phone: [facility] Work Phone: 03-29-2022 11:38-0400 Systolic blood pressure 108 mm[Hg] Phyllis Zarrabi Work Phone: [facility] Work Phone: 03-01-2022 12:58-0400 Body height 167.64 cm Phyllis Mae Work Phone: [facility] Work Phone: 03-01-2022 12:58-0400 Body mass index (BMI) [Ratio] 24.29 kg/m2 Phyllis Mae Work Phone: [facility] Work Phone: 03-01-2022 12:58-0400 Body surface area Derived from formula 1.77 m2 Phyllis Mae Work Phone: [facility] Work Phone: 03-01-2022 12:58-0400 Body weight 68.26 kg Phyllis Taverasabi Work Phone: [facility] Work Phone: 03-01-2022 12:58-0400 Diastolic blood pressure 80 mm[Hg] Phyllis Mae Work Phone: [facility] Work Phone: 03-01-2022 12:58-0400 Heart rate 91 /min Phyllis Mae Work Phone: [facility] Work Phone: 03-01-2022 12:58-0400 Systolic blood pressure 130 mm[Hg] Phyllis Taverasabi Work Phone: [facility] Work Phone: 01-10-2022 11:22-0400 Body height 170.2 cm Santana Orosco PA-C Work Phone: [facility] 01-10-2022 11:22-0400 Body mass index (BMI) [Ratio] 23.18 kg/m2 Santana Orosco PA-C Work Phone: [facility] 01-10-2022 11:22-0400 Body weight 67.13 kg Santana Orosco PA-C Work Phone: [facility] 01-10-2022 11:22-0400 Diastolic blood pressure 78 mm[Hg] Santana Orosco PA-C Work Phone: [facility] 01-10-2022 11:22-0400 Heart rate 81 /min Santana Orosco PA-C Work Phone: [facility] 01-10-2022 11:22-0400 Systolic blood pressure 123 mm[Hg] Santana Orosco PA-C Work Phone: [facility] 01-04-2022 13:46-0500 Body height 167.64 cm Phyllis Taverasabi Work Phone: [facility] Work Phone: 01-04-2022 13:46-0500 Body mass index (BMI) [Ratio] 23.73 kg/m2 Phyllis Asifrrabi Work Phone: [facility] Work Phone: 01-04-2022 13:46-0500 Body surface area Derived from formula 1.75 m2 Phyllis Taverasabi Work Phone: [facility] Work Phone: 01-04-2022 13:46-0500 Body weight 66.68 kg Phyllis Taverasabi Work Phone: [facility] Work Phone: 01-04-2022 13:46-0500 Diastolic blood pressure 92 mm[Hg] Phyllis Zarrabi Work Phone: [facility] Work Phone: 01-04-2022 13:46-0500 Heart rate 85 /min Phyllis Yefrirrabi Work Phone: [facility] Work Phone: 01-04-2022 13:46-0500 Systolic blood pressure 108 mm[Hg] Phyllis Zarrabi Work Phone: [facility] Work Phone: 10-04-2021 11:35-0500 Body height 167.64 cm Phyllis Asifrrabi Work Phone: [facility] Work Phone: 10-04-2021 11:35-0500 Body mass index (BMI) [Ratio] 23.43 kg/m2 Phyllis Zarrabi Work Phone: [facility] Work Phone: 10-04-2021 11:35-0500 Body surface area Derived from formula 1.75 m2 Phyllis Zarrabi Work Phone: [facility] Work Phone: 10-04-2021 11:35-0500 Body weight 65.85 kg Phyllis Asifrrabi Work Phone: [facility] Work Phone: 10-04-2021 11:35-0500 Diastolic blood pressure 60 mm[Hg] Phyllis Zarrabi Work Phone: [facility] Work Phone: 10-04-2021 11:35-0500 Systolic blood pressure 100 mm[Hg] Phyllis Zarrabi Work Phone: [facility] Work Phone: 09-14-2021 13:55-0500 Body height 167.64 cm Phyllis Zarrabi Work Phone: [facility] Work Phone: 09-14-2021 13:55-0500 Body mass index (BMI) [Ratio] 23.24 kg/m2 Phyllis Zarrabi Work Phone: [facility] Work Phone: 09-14-2021 13:55-0500 Body surface area Derived from formula 1.74 m2 Phyllis Zarrabi Work Phone: [facility] Work Phone: 09-14-2021 13:55-0500 Body weight 65.31 kg Phyllis Mae Work Phone: [facility] Work Phone: 09-14-2021 13:55-0500 Diastolic blood pressure 80 mm[Hg] Phyllis Taverasabi Work Phone: [facility] Work Phone: 09-14-2021 13:55-0500 Heart rate 80 /min Phyllis Zarrabi Work Phone: [facility] Work Phone: 09-14-2021 13:55-0500 Systolic blood pressure 128 mm[Hg] Phyllis Taverasabi Work Phone: [facility] Work Phone: 08-24-2021 11:15-0400 Body height 167.64 cm Phyllis Taverasabi Work Phone: [facility] Work Phone: 08-24-2021 11:15-0400 Body mass index (BMI) [Ratio] 22.6 kg/m2 Phyllis Taverasabi Work Phone: [facility] Work Phone: 08-24-2021 11:15-0400 Body surface area Derived from formula 1.72 m2 Phyllis Taverasabi Work Phone: [facility] Work Phone: 08-24-2021 11:15-0400 Body weight 63.5 kg Phyllis Taverasabi Work Phone: [facility] Work Phone: 08-24-2021 11:15-0400 Diastolic blood pressure 70 mm[Hg] Phyllis Asifrrabi Work Phone: [facility] Work Phone: 08-24-2021 11:15-0400 Heart rate 94 /min Phyllis Mae Work Phone: [facility] Work Phone: 08-24-2021 11:15-0400 SaO2% (BldA) [Mass fraction] 97 % Phyllis Taverasabi Work Phone: [facility] Work Phone: 08-24-2021 11:15-0400 Systolic blood pressure 102 mm[Hg] Phyllis Taverasabi Work Phone: [facility] Work Phone: 08-03-2021 11:25-0400 Body height 170.2 cm Davidandrew Waters [employer] Work Phone: [facility] 08-03-2021 11:25-0400 Body mass index (BMI) [Ratio] 21.77 kg/m2 David Waters TE[employer] ME[employer] Work Phone: [facility] 08-03-2021 11:25-0400 Body weight 63.05 kg David Waters TE[employer] MECH[employer]IC Work Phone: [facility] 08-03-2021 11:25-0400 Diastolic blood pressure 81 mm[Hg] Davidkandi Waters TELE[employer] MECHANIC Work Phone: [facility] 08-03-2021 11:25-0400 Heart rate 97 /min Davidandrew Waters TELEPH[employer] MECHANIC Work Phone: [facility] 08-03-2021 11:25-0400 Systolic blood pressure 155 mm[Hg] Davidandrew Waters TELEPH[employer] MECHANIC Work Phone: [facility] 07-12-2021 11:30-0400 Body height 167.64 cm Phyllis Taverasabi Work Phone: [facility] Work Phone: 07-12-2021 11:30-0400 Body mass index (BMI) [Ratio] 21.63 kg/m2 Phyllis Asifrrabi Work Phone: [facility] Work Phone: 07-12-2021 11:30-0400 Body surface area Derived from formula 1.69 m2 Phyllis Mae Work Phone: [facility] Work Phone: 07-12-2021 11:30-0400 Body weight 60.78 kg Phyllis Mae Work Phone: [facility] Work Phone: 07-12-2021 11:30-0400 Diastolic blood pressure 60 mm[Hg] Phyllis Mae Work Phone: [facility] Work Phone: 07-12-2021 11:30-0400 Heart rate 76 /min Phyllis Mae Work Phone: [facility] Work Phone: 07-12-2021 11:30-0400 Systolic blood pressure 100 mm[Hg] Phyllis Mae Work Phone: [facility] Work Phone: 06-24-2021 11:16-0400 Body height 170.18 cm Phyllis Mae Work Phone: [facility] Work Phone: 06-24-2021 11:16-0400 Body mass index (BMI) [Ratio] 20.36 kg/m2 Phyllis Taverasabi Work Phone: [facility] Work Phone: 06-24-2021 11:16-0400 Body surface area Derived from formula 1.68 m2 Phyllis Taverasabi Work Phone: [facility] Work Phone: 06-24-2021 11:16-0400 Body temperature 98.2 [degF] Phyllis Taverasabi Work Phone: [facility] Work Phone: 06-24-2021 11:16-0400 Body weight 58.97 kg Phyllis Mae Work Phone: [facility] Work Phone: 06-24-2021 11:16-0400 Diastolic blood pressure 55 mm[Hg] Phyllis Taverasabi Work Phone: [facility] Work Phone: 06-24-2021 11:16-0400 Heart rate 87 /min Phyllis Taverasabi Work Phone: [facility] Work Phone: 06-24-2021 11:16-0400 Respiratory rate 16 /min Phyllis Mae Work Phone: [facility] Work Phone: 06-24-2021 11:16-0400 Systolic blood pressure 83 mm[Hg] Phyllis Mae Work Phone: [facility] Work Phone: 06-01-2021 14:11-0400 Body height 170.18 cm Phyllis Mae Work Phone: [facility] Work Phone: 06-01-2021 14:11-0400 Body mass index (BMI) [Ratio] 19.89 kg/m2 Phyllisallie Mae Work Phone: [facility] Work Phone: 06-01-2021 14:11-0400 Body surface area Derived from formula 1.67 m2 Phyllisallie Mae Work Phone: [facility] Work Phone: 06-01-2021 14:11-0400 Body weight 57.61 kg Phyllisallie Mae Work Phone: [facility] Work Phone: 06-01-2021 14:11-0400 Diastolic blood pressure 70 mm[Hg] Phyllis Mae Work Phone: [facility] Work Phone: 06-01-2021 14:11-0400 Heart rate 88 /min Phyllis Taverasabi Work Phone: [facility] Work Phone: 06-01-2021 14:11-0400 Systolic blood pressure 108 mm[Hg] Phyllis Mae Work Phone: [facility] Work Phone: 05-11-2021 07:47-0400 Body temperature 97.3 [degF] Lev Desai MD Work Phone: [facility] 05-11-2021 07:47-0400 Diastolic blood pressure 66 mm[Hg] Lev Desai MD Work Phone: [facility] 05-11-2021 07:47-0400 Heart rate 66 /min Lev Desai MD Work Phone: [facility] 05-11-2021 07:47-0400 Respiratory rate 16 /min Lev Desai MD Work Phone: [facility] 05-11-2021 07:47-0400 SaO2% (BldA) [Mass fraction] 95 % Lev Desai MD Work Phone: [facility] 05-11-2021 07:47-0400 Systolic blood pressure 125 mm[Hg] Lev Desai MD Work Phone: [facility] 05-11-2021 05:00-0400 Body mass index (BMI) [Ratio] 22.76 kg/m2 Lev Desai MD Work Phone: [facility] 05-11-2021 05:00-0400 Body weight 66.9 kg Lev Desai MD Work Phone: [facility] 04-27-2021 16:03-0400 Respiratory rate 0 /min Lev Desai MD Work Phone: [facility] 04-27-2021 15:120400 Body height 171.5 cm Lev Desai MD Work Phone: [facility] 03-24-2021 15:28-0400 Body height 154.1 cm Dylon Galindo MD Work Phone: [facility] 03-24-2021 15:28-0400 Body mass index (BMI) [Ratio] 25.42 kg/m2 Dylon Galindo MD Work Phone: [facility] 03-24-2021 [id number] Body weight 60.33 kg Dylon Galindo MD Work Phone: [facility] 11-23-2020 13:51-0500 BP Diastolic 63 mm[Hg] Aquiles [facility] 11-23-2020 13:51-0500 BP Systolic 122 mm[Hg] [facility] 11-23-2020 13:51-0500 Pulse (Heart Rate) 97 /min [facility] 11-23-2020 13:01-0500 BMI (Body Mass Index) 22.08 kg/m2 [facility] 11-23-2020 13:01-0500 Body weight 63.96 kg [facility] 11-23-2020 13:01-0500 Height 170.2 cm [facility] 08-17-2020 12:36-0400 BMI (Body Mass Index) 22.87 kg/m2 Phyllis Mae [facility] Work Phone: 08-17-2020 12:36-0400 Body weight 66.23 kg Phyllis Mae [facility] Work Phone: 08-17-2020 12:36-0400 BP Diastolic 92 mm[Hg] Phyllis Mae [facility] Work Phone: 08-17-2020 12:36-0400 BP Systolic 158 mm[Hg] Phyllis Taverasclemencia [facility] Work Phone: 08-17-2020 12:36-0400 BSA (Body Surface Area) 1.77 m2 Phyllis Mae [facility] Work Phone: 08-17-2020 12:36-0400 Height 170.18 cm Phyllis Mae [facility] Work Phone: 08-17-2020 12:36-0400 Pulse (Heart Rate) 64 /min Phyllis Mae [facility] Work Phone: 08-03-2020 12:54-0400 BMI (Body Mass Index) 22.87 kg/m2 [facility] 08-03-2020 12:54-0400 Body weight 66.22 kg [facility] 08-03-2020 12:54-0400 BP Diastolic 78 mm[Hg] [facility] 08-03-2020 12:54-0400 BP Systolic 135 mm[Hg] [facility] 08-03-2020 12:54-0400 Height 170.2 cm [facility] 08-03-2020 12:54-0400 Pulse (Heart Rate) 81 /min [facility] 07-20-2020 13:19-0400 BMI (Body Mass Index) 22.71 kg/m2 Phyllismax Mae [facility] Work Phone: 07-20-2020 13:19-0400 Body weight 65.77 kg Phyllis Mae [facility] Work Phone: 07-20-2020 13:19-0400 BP Diastolic 82 mm[Hg] Phyllis Mae [facility] Work Phone: Comment on above: Location: LUE; Position: Sitting 07-20-2020 13:19-0400 BP Systolic 144 mm[Hg] Phyllis Mae [facility] Work Phone: Comment on above: Location: LUE; Position: Sitting 07-20-2020 13:19-0400 BSA (Body Surface Area) 1.76 m2 Phyllismax Mae [facility] Work Phone: 07-20-2020 13:19-0400 Height 170.18 cm Phyllis Mae [facility] Work Phone: 07-20-2020 13:19-0400 Pulse (Heart Rate) 84 /min Phyllis Mae [facility] Work Phone: 06-10-2020 19:01-0400 BP Diastolic 81 mm[Hg] [facility] 06-10-2020 19:01-0400 BP Systolic 176 mm[Hg] [facility] 06-10-2020 19:01-0400 Pulse (Heart Rate) 74 /min [facility] 06-10-2020 19:01-0400 Pulse Oximetry 97 % [facility] 06-10-2020 17:29-0400 BMI (Body Mass Index) 23.49 kg/m2 [facility] 06-10-2020 17:29-0400 Body Temperature 98.4 [degF] [facility] 06-10-2020 17:29-0400 Body weight 68.04 kg [facility] 06-10-2020 17:29-0400 Height 170.2 cm [facility] 06-10-2020 17:29-0400 Respiratory Rate 16 /min [facility] 05-19-2020 14:42-0400 BMI (Body Mass Index) 23.06 kg/m2 Phyllis Mae [facility] Work Phone: 05-19-2020 14:42-0400 Body weight 66.79 kg Phyllis Mae [facility] Work Phone: 05-19-2020 14:42-0400 BP Diastolic 80 mm[Hg] Phyllis Mae [facility] Work Phone: Comment on above: Location: LUE; Position: Sitting 05-19-2020 14:42-0400 BP Systolic 140 mm[Hg] Phyllis Mae [facility] Work Phone: Comment on above: Location: LUE; Position: Sitting 05-19-2020 14:42-0400 BSA (Body Surface Area) 1.78 m2 [facility] 05-19-2020 14:42-0400 Height 170.18 [facility] 05-19-2020 14:42-0400 Pulse (Heart Rate) 82 /min [facility] 04-28-2020 14:29-0400 Diastolic blood pressure 56 ml [facility] 04-28-2020 14:29-0400 Systolic blood pressure 15 ml [facility] 04-28-2020 10:25-0400 BMI (Body Mass Index) 23.47 kg/m2 [facility] 04-28-2020 10:25-0400 Body weight 68 kg [facility] 04-28-2020 10:25-0400 BP Diastolic 85 mm[Hg] [facility] 04-28-2020 10:25-0400 BP Systolic 155 mm[Hg] [facility] 04-28-2020 10:25-0400 Height 170.2 cm [facility] 04-28-2020 10:25-0400 Pulse (Heart Rate) 76 /min [facility] 04-14-2020 16:00-0400 Pulse (Heart Rate) 72 /min [facility] 04-14-2020 16:00-0400 Pulse Oximetry 93 % [facility] 04-14-2020 15:45-0400 BP Diastolic 59 mm[Hg] [facility] 04-14-2020 15:45-0400 BP Systolic 91 mm[Hg] [facility] 04-14-2020 14:43-0400 Body Temperature 98.8 [degF] [facility] 04-14-2020 13:44-0400 Respiratory Rate 18 /min [facility] 04-14-2020 13:36-0400 Respiratory rate 0 /min [facility] 12-27-2019 10:54-0500 BMI (Body Mass Index) 23.49 kg/m2 David Waters [facility] 12-27-2019 10:54-0500 Body weight 68.04 kg David Waters [facility] 12-27-2019 10:54-0500 BP Diastolic 84 mm[Hg] David [facility] 12-27-2019 10:54-0500 BP Systolic 171 mm[Hg] David [facility] 12-27-2019 10:54-0500 Height 170.2 cm David [facility] 12-27-2019 10:54-0500 Pulse (Heart Rate) 73 /min David [facility] 12-04-2019 15:20-0500 BP Diastolic 84 mm[Hg] Cameron [facility] Comment on above: 12-04-2019 15:20-0500 BP Systolic 163 mm[Hg] Cameron [facility] Comment on above: 12-04-2019 14:58-0500 BMI (Body Mass Index) 23.02 kg/m2 Cameron [facility] 12-04-2019 14:58-0500 Body weight 66.68 kg Cameron [facility] 12-04-2019 14:58-0500 [facility] [facility] 12-04-2019 14:58-0500 Pulse (Heart Rate) 56 /min Cameron [facility] 10-24-2019 15:44-0500 BP Diastolic 93 mm[Hg] Aquiles [facility] 10-24-2019 15:44-0500 BP Systolic 170 mm[Hg] [facility] 10-24-2019 15:42-0500 BMI (Body Mass Index) 23.02 kg/m2 Aquiles [facility] 10-24-2019 15:42-0500 Body weight 66.68 kg Aquiles [facility] 10-24-2019 15:42-0500 Pulse (Heart Rate) 78 /min Aquiles [facility] 10-24-2019 15:42-0500 Pulse Oximetry 96 % Aquiles Pagenathalie [facility] 06-05-2019 13:30-0400 BP Diastolic 80 mm[Hg] Bret Fuentes [facility] 06-05-2019 13:30-0400 BP Systolic 162 mm[Hg] Bret Fuentes [facility] 06-05-2019 13:30-0400 Pulse (Heart Rate) 60 /min Bret Fuentes [facility] 06-05-2019 13:30-0400 Pulse Oximetry 95 % Bret Fuentes [facility] 06-05-2019 13:30-0400 Respiratory Rate 19 /min Bret Fuentes [facility] 06-05-2019 12:21-0400 BMI (Body Mass Index) 22.87 kg/m2 Bret [facility] 06-05-2019 12:21-0400 Body Temperature 97.9 [degF] [facility] 12:21-0400 Body weight 66.22 kg [facility]-05-[facility] 12:21-0400 Height 170.2 cm [facility] 05-27-2019 12:33-0400 BP Diastolic 97 mm[Hg] Cornelia Martin [facility] 05-27-2019 12:33-0400 BP Systolic 148 mm[Hg] Cornelia [facility] 05-27-2019 12:33-0400 Pulse Oximetry 99 % Cornelia [facility] 05-27-2019 11:25-0400 BMI (Body Mass Index) 22.87 kg/m2 Cornelia [facility] 05-27-2019 11:25-0400 Body Temperature 98.2 [degF] Cornelia [facility] 05-27-2019 11:25-0400 Body weight 66.22 kg Cornelia Martin [facility] 05-27-2019 11:25-0400 Height 170.2 cm Cornelia [facility] 05-27-2019 11:25-0400 Pulse (Heart Rate) 84 /min Cornelia [facility] 05-27-2019 11:25-0400 Respiratory Rate 18 /min Cornelia [facility] 05-27-2019 10:55-0400 BMI (Body Mass Index) 22.87 kg/m2 [facility] 05-27-2019 10:55-0400 Body Temperature 98.29 [degF] [facility] 05-27-2019 10:55-0400 Body weight 66.22 kg [facility] 05-27-2019 10:55-0400 BP Diastolic 83 mm[Hg] [facility] 05-27-2019 10:55-0400 BP Systolic 146 mm[Hg] Guillermo Yipwanathan [facility] 05-27-2019 10:55-0400 Pulse (Heart Rate) 92 /min Guillermo Yipwanathan [facility] 05-27-2019 10:55-0400 Pulse Oximetry 84 % [facility] 04-01-2019 13:19-0400 BMI (Body Mass Index) 23.02 kg/m2 Aquiles [facility] 04-01-2019 13:19-0400 BP Diastolic 92 mm[Hg] Aquiles [facility] 04-01-2019 13:19-0400 BP Systolic 165 mm[Hg] [facility] 04-01-2019 13:19-0400 Height 170.2 cm [facility] 04-01-2019 13:19-0400 Pulse (Heart Rate) 81 /min [facility] 04-01-2019 13:19-0400 Pulse Oximetry 98 % [facility] 04-01-2019 13:19-0400 Weight 66.68 kg Aquiles [facility] 01-25-2019 09:09-0400 BMI (Body Mass Index) 23.65 kg/m2 [facility] 01-25-2019 09:09-0400 Body Temperature 97.81 [degF] [facility] 01-25-2019 09:09-0400 Body weight 68.49 kg [facility] 01-25-2019 09:09-0400 BP Diastolic 90 mm[Hg] [facility] 01-25-2019 09:09-0400 BP Systolic 183 mm[Hg] [facility] 01-25-2019 09:09-0400 Height 170.2 cm [facility] 01-25-2019 09:09-0400 Pulse (Heart Rate) 83 /min [facility] 01-22-2019 13:-0400 BMI (Body Mass Index) 23.15 kg/m2 Lola Cruz [facility] 01-22-2019 13:26-0400 BP Diastolic 60 mm[Hg] Lola [facility] 01-22-2019 13:26-0400 BP Systolic 140 mm[Hg] Lola [facility] 01-22-2019 13:26-0400 Pulse (Heart Rate) 92 /min [facility] 01-22-2019 13:26-0400 Pulse Oximetry 92 % [facility] 01-22-2019 13:26-0400 Weight 67.04 kg [facility] 11-28-2018 12:53-0500 BP Diastolic 79 mm[Hg] [facility] 11-28-2018 12:53-0500 BP Systolic 121 mm[Hg] [facility] 11-28-2018 12:50-0500 BMI (Body Mass Index) 23.34 kg/m2 [facility] 11-28-2018 12:50-0500 Body weight 67.59 kg [facility] 11-28-2018 12:50-0500 Height 170.2 cm [facility] 11-28-2018 12:50-0500 Pulse (Heart Rate) 83 /min [facility] 09-28-2018 09:25-0500 BMI (Body Mass Index) 23.71 kg/m2 [facility] 09-28-2018 09:25-0500 Body Temperature 97.81 [degF] [facility] 09-28-2018 09:25-0500 BP Diastolic 76 mm[Hg] [facility] 09-28-2018 09:25-0500 BP Systolic 169 mm[Hg] [facility] 09-28-2018 09:25-0500 Height 170.2 cm [facility] 09-28-2018 09:25-0500 Pulse (Heart Rate) 77 /min [facility] 09-28-2018 09:25-0500 Pulse Oximetry 90 % [facility] 09-28-2018 09:25-0500 Weight 68.67 kg [facility] 01-04-2018 10:46-0500 BMI (Body Mass Index) 23.87 kg/m2 [facility] 01-04-2018 10:46-0500 Body Temperature 97.5 [degF] [facility] 01-04-2018 10:46-0500 BP Diastolic 94 mm[Hg] [facility] 01-04-2018 10:46-0500 BP Systolic 154 mm[Hg] [facility] 01-04-2018 10:46-0500 Height 172.7 cm [facility] 01-04-2018 10:46-0500 Pulse (Heart Rate) 85 /min [facility] 01-04-2018 10:46-0500 Pulse Oximetry 93 % [facility] 01-04-2018 10:46-0500 Weight 71.22 kg [facility] 11-22-2017 10:15-0500 BMI (Body Mass Index) 24.37 kg/m2 [facility] Work Phone: 11-22-2017 10:15-0500 BP Diastolic 76 mm[Hg] [facility] Work Phone: 11-22-2017 10:15-0500 BP Systolic 137 mm[Hg] [facility] Work Phone: 11-22-2017 10:15-0500 Height 167.6 cm [facility] Work Phone: 11-22-2017 10:15-0500 Pulse (Heart Rate) 63 /min [facility] Work Phone: 11-22-2017 10:15-0500 Pulse Oximetry 97 % [facility] Work Phone: 11-22-2017 10:15-0500 Weight 68.49 kg [facility] Work Phone: 10-16-2017 15:35-0500 BMI (Body Mass Index) 24.21 kg/m2 [facility] Work Phone: 10-16-2017 15:35-0500 BP Diastolic 74 mm[Hg] [facility] Work Phone: 10-16-2017 15:35-0500 BP Systolic 135 mm[Hg] [facility] Work Phone: 10-16-2017 15:35-0500 Height 167.6 cm [facility] Work Phone: 10-16-2017 15:35-0500 Pulse (Heart Rate) 65 /min [facility] Work Phone: 10-16-2017 15:35-0500 Pulse Oximetry 94 % [facility] Work Phone: 10-16-2017 15:35-0500 Weight 68.04 kg [facility] Work Phone: 09-07-2017 11:18-0500 BMI (Body Mass Index) 25.29 kg/m2 [facility] Work Phone: 09-07-2017 11:18-0500 BP Diastolic 85 mm[Hg] [facility] 09-07-2017 11:18-0500 BP Systolic 117 mm[Hg] [facility] Work Phone: 09-07-2017 11:18-0500 Height 167.6 cm [facility] Work Phone: 09-07-2017 11:18-0500 Pulse (Heart Rate) 100 /min [facility] Work Phone: 09-07-2017 11:18-0500 Weight 71.08 kg [facility] Work Phone: 08-17-2017 09:01-0400 BMI (Body Mass Index) 26.05 kg/m2 [facility] Work Phone: 08-17-2017 09:01-0400 BP Diastolic 67 mm[Hg] [facility] Work Phone: 08-17-2017 09:01-0400 BP Systolic 118 mm[Hg] [facility] Work Phone: 08-17-2017 09:01-0400 Height 167.6 cm [facility] Work Phone: 08-17-2017 09:01-0400 Pulse (Heart Rate) 68 /min [facility] Work Phone: 08-17-2017 09:01-0400 Weight 73.21 kg [facility] Work Phone: Encounters Encounter Date Encounter Type Care Provider Facility Start: 05-30-2025 ambulatory Sharmila Velozi ty:[facility] Start: 05-28-2025 ambulatory Phyllis Mae Facilit y:[facility] Start: 04-22-2025 ambulatory Phyllis Zatommy Facilit y:[facility] Start: 04-17-2025 End: 04-17-[address] Deshaun Salcedo MD -[facility] Work Phone: Start: 04-17-2025 End: 04-17-[address] Phyllis Mae MD Work Phone: [facility] Work Phone: Start: 04-16-2025 ambulatory Phyllis Mae Facilit y:[facility] Start: 04-16-2025 Registered Referred Manohar Pablo MD -[facility] Work Phone: Start: 04-10-2025 End: 04-10-2025 Emergency department patient visit Dr. Phyllis Mae MD Work Phone: -Emergency Department Work Phone: Start: 02-23-2025 ambulatory Sharmila LOTT Facili ty:[facility] Start: 02-23-[address] Sharmila Arteaga MD -[facility] Work Phone: Start: 02-19-2025 End: 02-19-2025 Departed Referred Manohar Pablo MD -[facility] Work Phone: Start: 02-19-2025 End: 02-19-2025 ambulatory [facility] Facility:[facility] Start: 01-27-2025 End: 01-27-[address] Phyllis Mae MD Work Phone: [facility] Work Phone: Start: 01-27-2025 End: 01-27-[address] Sharmila Arteaga MD -[facility] Work Phone: Start: 01-27-2025 End: 01-27-2025 ambulatory Sharmila LOTT Facility:[facility] Start: 01-02-2025 End: 01-02-2025 ambulatory [facility] Start: 01-02-2025 End: 01-02-2025 Office outpatient visit 15 minutes BHUMIKA ADAMS Work Phone: [facility] Comment on above: Onychodystrophy (Linda olivarez Dx); Onychomycosis; PVD (peripheral vascular disease); Diabetic foot (HCC); Xerosis of skin Start: 12-24-2024 End: 12-24-[address] Phyllis Mae MD Work Phone: [facility] Work Phone: Start: 12-24-2024 End: 12-24-[address] Phyllis Mae MD Work Phone: -Laboratory Work Phone: Start: 12-24-2024 End: 12-24-2024 ambulatory [facility] Facility:[facility] Start: 12-05-2024 End: 12-05-2024 Office outpatient visit 25 minutes Phyllis Mae MD Work Phone: [facility] Comment on above: Fatigue, unspecified [...] encounter status Phyllis Mae MD Work Phone: [facility] Work Phone: Start: 12-05-2024 End: 12-05-2024 ambulatory [facility] Ambulatory Start: 12-02-2024 End: 12-02-2024 Patient encounter procedure PHYLLIS MAE -Laboratory Work Phone: Start: 12-02-2024 End: 12-02-2024 ambulatory [facility] Facility:[facility] Start: 11-25-2024 End: 11-25-2024 Refill Fior Forbes CNP Work Phone: [facility] [place] Comment on above: 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, with long-term current use of insulin (HCC) (Primary Dx) Start: 11-21-2024 End: 11-21-2024 Documentation procedure Fior Forbes CNP Work Phone: [facility] Start: 11-12-2024 End: 11-12-2024 Refill Fior Forbes CNP Work Phone: [facility] Start: 11-07-2024 End: 11-07-2024 Refill Fior Forbes CNP Work Phone: [facility] Start: 11-05-2024 End: 11-05-2024 Assay of hemosiderin, quant Phyllis Mae MD Work Phone: [facility] Work Phone: Start: 11-05-2024 End: 11-05-2024 Patient encounter procedure Phyllis Mae MD Work Phone: [facility] Comment on above: Routine general medi sheldon examination at health care facility (Primary Dx); Chronic obstructive pulmonary disease, unspecified COPD type (Multi); Essential tremor; Type 2 diabetes mellitus with hyperglycemia, with long-term current use of insulin; Hypertension associated with type 2 diabetes mellitus (Multi); Mixed hyperlipidemia; Thrombocytopenia ([facility]-HCC); Folate deficiency; CRF (chronic renal failure), stage 3 (moderate) (Multi); Chronic fatigue; Anemia, unspecified type; Weakness of both arms; Weakness of both legs; Smoker Start: 11-05-2024 End: 11-05-2024 Encounter for general adult medical examination without abnormal findings PHYLLIS MAE [facility] Ambulatory Start: 11-05-2024 End: 11-05-2024 Refill Fior Forbes CNP Work Phone: [facility] Comment on above: 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, with long-term current use of insulin (HCC) (Primary Dx) Start: 10-07-2024 End: 10-08-2024 Refill David Waters CNP Work Phone: [facility] Comment on above: 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, with long-term current use of insulin (HCC) Start: 10-03-2024 End: 10-03-2024 Office outpatient visit 25 minutes Cameron Munguia DO Work Phone: [facility] Comment on above: History of carotid e ndarterectomy (Primary Dx); Stenosis of left carotid artery; Neurogenic claudication; PAD (peripheral artery disease) (HCC); Type 2 diabetes mellitus with stage 3b chronic kidney disease, with long-term current use of insulin (HCC); Tobacco use Start: 10-03-2024 End: 10-03-2024 Office outpatient visit 10 minutes BHUMIKA Lin DPM Work Phone: [facility] Comment on above: Onychodystrophy (Linda juanis Dx); Onychomycosis; PVD (peripheral vascular disease) (HCC); Tobacco use; Diabetic foot (HCC); Xerosis of skin Start: 10-03-2024 End: 10-03-2024 [facility] Start: 09-16-2024 End: 09-16-2024 ambulatory [facility] Start: 09-10-2024 End: 09-11-2024 Refill Fior Forbes CNP Work Phone: [facility] Comment on above: 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, with long-term current use of insulin (HCC) (Primary Dx) Start: 09-09-2024 End: 09-09-2024 Office outpatient visit 25 minutes Fior Forbes CNP Work Phone: [facility] Comment on above: 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, with long-term current use of insulin (HCC) (Primary Dx); Dyslipidemia; Essential hypertension Chest pain, unspecif ied type (Primary Dx); History of CVA (cerebrovascular accident); Essential hypertension; PVD (peripheral vascular disease) (HCC) Start: 09-09-2024 End: 09-09-2024 [facility] Start: 09-04-2024 End: 09-04-2024 ambulatory DAVID PALOMA [facility] Ambulatory Start: 07-25-2024 End: 07-25-2024 ambulatory [facility] Ambulatory Start: 07-25-2024 End: 07-25-2024 Office outpatient visit 25 minutes Phyllis Mae MD Work Phone: [facility] Comment on above: Thrombocytopenia (CM S-HCC) (Primary Dx); Chronic obstructive pulmonary disease, unspecified (Multi); Megaloblastic anemia; Folate deficiency; Fatigue, unspecified type; CRF (chronic renal failure), stage 3 (moderate) (Multi); Type 2 diabetes mellitus with hyperglycemia, with long-term current use of insulin (Multi) Start: 07-09-2024 End: 07-09-2024 [facility] Start: 06-27-2024 End: 06-27-2024 Patient encounter procedure BHUMIKA Lin DPM Work Phone: [facility] Comment on above: Onychodystrophy (Linda juanis Dx); Onychomycosis; PVD (peripheral vascular disease) ([facility]); Tobacco use; Diabetic foot (HCC); Toe pain, bilateral Start: 06-27-2024 End: 07-01-2024 [facility] Start: 05-28-2024 End: 05-28-2024 [facility] Ambulatory Start: 05-14-2024 End: 05-18-2024 ambulatory [facility] Start: 05-14-2024 End: 05-14-2024 Office outpatient visit 25 minutes BHUMIKA Lin DPM Work Phone: [facility] Comment on above: Ingrown toenail (Linda juanis Dx); Paronychia of great toe; PVD (peripheral vascular disease) ([facility]); Tobacco use; Xerosis of skin; Diabetic foot (HCC) Start: 05-07-2024 End: 05-07-2024 Office outpatient visit 25 minutes David Waters CNP Work Phone: [facility] Comment on above: 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, with long-term current use of insulin (HCC) (Primary Dx) Start: 05-07-2024 End: 05-07-2024 ambulatory [facility] Start: 04-25-2024 End: 04-25-2024 ambulatory [facility] Start: 03-26-2024 End: 03-26-2024 Office outpatient visit 15 minutes BHUMIKA Lin DPM Work Phone: [facility] Comment on above: Diabetic foot (HCC) (Primary Dx); PVD (peripheral vascular disease) (HCC); Type 2 diabetes mellitus with stage 3b chronic kidney disease, with long-term current use of insulin (HCC); Claudication of lower extremity (HCC); Tobacco use; Xerosis of skin; Onychodystrophy; Onychomycosis; Toe pain, bilateral Start: 03-26-2024 End: 03-26-2024 ambulatory [facility] Start: 03-21-2024 End: 03-21-2024 ambulatory [facility] Start: 03-11-2024 ambulatory FIOR RAGLAND [facility] Ambulatory Start: 03-08-2024 End: 03-12-2024 ambulatory [facility] Start: 02-29-[address] [facility] Start: 02-27-2024 End: 02-27-2024 Assay of hemosiderin, quant Phyllis Mae MD Work Phone: [facility] Work Phone: Start: 02-27-2024 End: 02-27-2024 Patient encounter procedure Phyllis Mae MD Work Phone: [facility] Comment on above: Routine general medi sheldon examination at health care facility (Primary Dx); Superficial gastritis without hemorrhage, unspecified chronicity; Weakness of upper extremity; Weakness of both lower extremities; Recurrent falls; Neck pain; H/O: CVA (cerebrovascular accident); Essential tremor; Neurogenic claudication; Stable angina pectoris ([facility]-HCC); Hypertension associated with type 2 diabetes mellitus (Multi); Encounter for vaccination; 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Multi); Hypotensive episode Start: 02-22-2024 End: 02-22-2024 Emergency department patient visit [facility] Start: 02-22-2024 End: 02-22-2024 Patient encounter procedure Scott Warren PA-C Work Phone: [facility] Comment on above: Hypotension, unspeci fied hypotension type (Primary Dx); Upper respiratory tract infection, unspecified type Start: 02-22-2024 End: 02-22-2024 ambulatory [facility] Start: 02-21-2024 Telephone encounter Fior Forbes CNP Work Phone: [facility] Comment on above: Medication Refill 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, with long-term current use of insulin (HCC) Start: 02-14-2024 Refill Fior Gamino ee TELEPHONE MECHANIC Work Phone: [facility] Comment on above: 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, with long-term current use of insulin (HCC) (Primary Dx) Start: 01-04-2024 End: 01-08-2024 Refill Jing Leon TELEPHONE MECHANIC Work Phone: [facility] Start: 12-25-[address] [facility] Start: 12-20-2023 Refill Fior Gamino ee TELEPHONE MECHANIC Work Phone: [facility] Start: 12-19-2023 End: 12-19-2023 Office outpatient new 30 minutes BHUMIKA Lin DPM Work Phone: [facility] Comment on above: Diabetic foot (HCC) (Primary Dx); PVD (peripheral vascular disease) (HCC); Type 2 diabetes mellitus with stage 3b chronic kidney disease, with long-term current use of insulin (HCC); Claudication of lower extremity (HCC); Tobacco use; Xerosis of skin; Onychodystrophy; Onychomycosis; Toe pain, bilateral Start: 12-19-2023 End: 12-23-2023 Refill Susan Baptiste MD Work Phone: [facility] Start: 12-19-2023 Refill Susan Burrell MD Work Phone: [facility] Start: 12-14-2023 End: 12-14-2023 Office outpatient visit 25 minutes Phyllis Mae MD Work Phone: [facility] Comment on above: Hypertension associa [...] 25 minutes Fior Forbes CNP Work Phone: [facility] Comment on above: 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, with long-term current use of insulin (HCC) (Primary Dx); Dyslipidemia; Essential hypertension Start: 10-11-2023 End: 10-11-2023 Office outpatient visit 40 minutes Deshaun Rodrigues MD Work Phone: [facility] Comment on above: Atypical parkinsonis m (Primary Dx); Diabetic polyneuropathy associated with type 2 diabetes mellitus (HCC); Essential tremor; Mild cognitive impairment Start: 10-11-2023 End: 10-15-2023 ambulatory [facility] Start: 08-22-2023 End: 08-22-2023 Office outpatient visit 25 minutes Phyllis Mae MD Work Phone: [facility] Comment on above: Type 2 diabetes silvino itus with hyperglycemic coma (CMS/HCC) (Primary Dx); Hyperlipidemia, unspecified hyperlipidemia type; Need for influenza vaccination; Chronic obstructive pulmonary disease, unspecified COPD type (CMS/HCC); H/O: CVA (cerebrovascular accident); Essential tremor; Encounter for vaccination; Hypertriglyceridemia Start: 07-12-2023 End: 07-12-2023 Office outpatient visit 15 minutes Arianna Alfaro TELEPHONE MECHANIC Work Phone: [facility] Comment on above: Essential hypertensi on (Primary Dx); Tobacco use; Dyslipidemia; History of cerebrovascular accident; Chronic obstructive pulmonary disease, unspecified COPD type (HCC); Musculoskeletal chest pain; Essential tremor Start: 05-15-2023 Refill David Waters TELEPHONE MECHANIC Work Phone: [facility] Comment on above: 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, with long-term current use of insulin (HCC) (Primary Dx) Start: 04-05-2023 End: 04-05-2023 Office outpatient visit 40 minutes Deshaun Rodrigues MD Work Phone: [facility] Comment on above: Atypical parkinsonis m (HCC) (Primary Dx); Essential tremor; Cough syncope; Mild cognitive impairment Start: 03-26-2023 Refill Don Pennington MD Work Phone: [facility] Start: 03-07-2023 End: 03-07-2023 Office outpatient visit 25 minutes Phyllis Mae MD Work Phone: [facility] Comment on above: Rib pain (Primary Dx ); Stenosis of left carotid artery; Hyperlipidemia, unspecified hyperlipidemia type; Gastro-esophageal reflux disease without esophagitis; Superficial gastritis without hemorrhage, unspecified chronicity; Pulmonary emphysema, unspecified emphysema type (CMS/HCC); CRF (chronic renal failure), stage 3 (moderate) (CMS/HCC); Hypertension associated with type 2 diabetes mellitus (CMS/HCC); Type 2 diabetes mellitus without complication, with long-term current use of insulin (CMS/HCC); Other fatigue; Screening for prostate cancer; Vascular myelopathies (CMS/HCC); Depression, major, in remission (CMS/HCC); Chronic stable angina (CMS/HCC); Chronic shortness of breath; Hepatic steatosis; H/O fall; Abdominal pain, LUQ; Abdominal pain, RUQ Start: 12-28-2022 ambulatory Phyllis Mae Facilit y:[id number] Start: 11-15-2022 Chart Update Phyllis Zarrab i Work Phone: [facility] Work Phone: Start: 11-10-2022 Transcribe Orders Donovan Chiang [facility] Comment on above: Non-pressure chronic ulcer of left lower leg, 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) (Primary Dx) Start: 11-09-2022 End: 11-09-2022 Emergency department patient visit Christopher Galindo [facility] 02 Start: 11-07-2022 AUDIT Phyllis Taverasab i Work Phone: [facility] Work Phone: Start: 09-20-2022 Office outpatient vi sit 25 minutes Phyllis Yefrijeramyclemencia Work Phone: [facility] Work Phone: Start: 09-20-2022 ambulatory Phyllis Mae Facilit y:[id number] Start: 09-13-2022 Refill David Waters CNP Work Phone: [facility] Start: 06-16-2022 End: 06-16-2022 Office outpatient new 60 minutes Deshaun Rodrigues MD Work Phone: [facility] Comment on above: Essential tremor (Pr imary Dx); Cough syncope Start: 06-15-2022 AUDIT Phyllis Taverasab i Work Phone: [facility] Work Phone: Start: 06-10-2022 End: 06-10-2022 Office outpatient visit 25 minutes Erica Gardner PA-C Work Phone: [facility] Comment on above: 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, with long-term current use of insulin (HCC) (Primary Dx); Essential hypertension Start: 06-02-2022 End: 06-02-2022 Office outpatient visit 25 minutes Aquiles Herrera MD Work Phone: [facility] Comment on above: GREEN (dyspnea on exer tion) (Primary Dx) Start: 05-18-2022 AUDIT Phyllis Ho i Work Phone: [facility] Work Phone: Start: 05-16-2022 AUDIT Phyllis Taverasab i Work Phone: [facility] Work Phone: Start: 05-11-2022 PTRECHECKA, Provider : Lorena Evangelista, Status: Pen, Time: 11:15 AM Phyllis Mae Work Phone: [facility] [address] [place] Work Phone: Start: 05-10-2022 Patient encounter procedure [facility] Mae [facility] Work Phone: Start: 05-09-2022 Patient encounter procedure Phyllis Mae Work Phone: [facility] [address] [place] Work Phone: Start: 05-09-[address] Phyllis Byrnes ility:[id number] Start: 05-06-2022 [id number], Provider : Quin Li, Status: Pen, Time: 2:00 PM [facility]yllis Mae [facility] [place] Work Phone: Start: 05-06-2022 Patient encounter procedure [facility] [place] Work Phone: Start: 05-04-2022 Patient encounter procedure [facility]yllis Mae [facility] [place] Work Phone: Start: 05-04-[address] Phyllis Mae Fac ility:[id number] Start: 04-29-2022 Patient encounter procedure [facility] Mae [facility] [place] Work Phone: Start: 04-25-2022 Patient encounter procedure [facility] Mae [facility] [place] Work Phone: Start: 04-22-[address] Phyllis Mae Fac ility:[id number] Start: 04-22-2022 Patient encounter procedure Phyllis Taverasclemencia Work [facility] [place] Work Phone: Start: 04-18-2022 Patient encounter procedure Phyllis Taverasclemencia Work Phone[facility] [place] Work Phone: Start: 04-18-[address] Phyllis Mae Fac ility:[id number] Start: 04-06-2022 Patient encounter procedure [facility]yllis Mae [facility] Work Phone: Start: 04-06-[address] Phyllis Mae Fac ility:[id number] Start: 03-29-2022 Office outpatient vi sit 25 minutes Phyllis Zarrclemencia Work Phone: [facility] Work Phone: Start: 03-29-2022 ambulatory Phyllis Carmelita Facilit y:[id number] Start: 03-15-2022 Patient encounter procedure Phyllsi Taverasclemencia Work Phone: [facility] Work Phone: Start: 03-01-2022 Office outpatient vi sit 25 minutes Phyllis Mae Work Phone: [facility] Work Phone: Start: 03-01-2022 ambulatory Phyllis Mae Facilit y:[id number] Start: 02-16-2022 AUDIT Phyllis Zarrab i Work Phone: [facility] Work Phone: Start: 01-10-2022 End: 01-10-2022 Office outpatient visit 25 minutes Santana Orosco PA-C Work Phone: [facility] Comment on above: 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, with long-term current use of insulin (HCC) ([facility] Dx) Start: 01-09-2022 Refill David Waters CNP Work Phone: [facility] Comment on above: Type 2 diabetes silvino itus without complications (HCC) Start: 01-04-2022 Office outpatient vi sit 15 minutes Phyllis Yefrirrabi Work Phone: [facility] Work Phone: Start: 01-04-2022 ambulatory Phyllis Asifrrabi Facilit [id number] Start: 12-30-2021 AUDIT Phyllis Zarrab i Work Phone: [facility] Work Phone: Start: 12-28-2021 AUDIT Phyllis Zarrab i Work Phone: [facility] Work Phone: Start: 12-01-2021 AUDIT Phyllis Zarrab i Work Phone: [facility] Work Phone: Start: 10-18-2021 Patient encounter procedure Phyllis Zarrabi Work Phone: [facility] [address] [place] Work Phone: Start: 10-12-2021 AUDIT Phyllis Zarrab i Work Phone: [facility] Work Phone: Start: 10-04-2021 Office outpatient vi sit 25 minutes Phyllis Zarrabi Work Phone: [facility] Work Phone: Start: 09-30-2021 Chart Update Phyllis Zarrab i Work Phone: [facility] Work Phone: Start: 09-29-2021 Patient encounter procedure [facility] [place] Work Phone: Start: 09-20-2021 Patient encounter procedure [facility]abi [facility] [place] Work Phone: Start: 09-17-2021 Patient encounter procedure [facility]yllis [facility]arrabi [facility] [place] Work Phone: Start: 09-17-2021 PTFUADULT4, Provider : Bib Payne, Status: Pen, Time: 12:30 PM Phyllis Zarrabi Work Phone: [facility] Work Phone: Start: 09-15-2021 AUDIT Phyllis Yefrirrab i Work Phone: [facility] Work Phone: Start: 09-15-2021 PTFUADULT4, Provider : Bib Payne, Status: Pen, Time: 1:15 PM Phyllis Zarrabi Work Phone: [facility] Work Phone: Start: 09-14-2021 Office outpatient vi sit 25 minutes Phyllis Zarrabi Work Phone: [facility] Work Phone: Start: 09-14-2021 Patient encounter procedure Phyllis Zarrabi Work Phone: [facility] Work Phone: Start: 09-10-2021 Patient encounter procedure [facility]yllis [facility]arrabi [facility] [place] Work Phone: Start: 09-10-2021 PTFUADULT4, Provider : Bib Payne, Status: Pen, Time: 12:30 PM Phyllis Taverasabi Work Phone: [facility] Work Phone: Start: 09-09-2021 End: 09-09-2021 Office outpatient visit 10 minutes Dylon Galindo MD Work Phone: [facility] Comment on above: Closed displaced fra cture of greater trochanter of right femur with routine healing, subsequent encounter (Primary Dx) Start: 09-09-2021 Chart Update Phyllis Taverasab i Work Phone: [facility] Work Phone: Start: 09-08-2021 Patient encounter procedure [facility]is Mae Work [facility]: [facility] Work Phone: Start: 09-06-2021 Patient encounter procedure [facility]yllis Mae [facility] [place] Work Phone: Start: 09-03-2021 Patient encounter procedure Phyllis Taverasabi Work Phone: [facility] [address] [place] Work Phone: Start: 08-27-2021 Patient encounter procedure Phyllis Taverasabi [facility] [place] Work Phone: Start: 08-25-2021 PTFUADULT4, Provider : Bib Payne, Status: Pen, Time: 12:30 PM Phyllis Taverasabi Work [facility]: [facility] [place] Work Phone: Start: 08-24-2021 EPV, Provider: Phyllis Mae, Status: Pen, Time: 11:15 AM Phyllis Mae [facility] [place] Work Phone: Start: 08-24-2021 Office outpatient vi sit 25 minutes Phyllis Mae Work Phone: [facility] Work Phone: Start: 08-23-2021 Patient encounter procedure [facility]yllis Mae [facility] [place] Work Phone: Start: 08-11-2021 Patient encounter procedure Phyllis Mae Work [facility] Work Phone: Start: 08-03-2021 End: 08-03-2021 Office outpatient visit 25 minutes David Waters [facility] Work Phone: [facility] Comment on above: 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, with long-term current use of insulin (HCC) (Primary Dx); Essential hypertension Start: 07-19-2021 AUDIT Phyllis Taverasab i Work Phone: [facility] Work Phone: Start: 07-12-2021 Office outpatient vi sit 40 minutes Phyllis Mae Work Phone: [facility] Work Phone: Start: 07-01-2021 Chart Update Phyllis Taverasab i [facility] Phone: [facility] Work Phone: Start: 06-17-2021 FUV, Provider: Jin Robbins II, Status: Giacomo, Time: 11:00 AM Phyllis Mae Work Phone: [facility] Work Phone: Start: 06-16-2021 Chart Update Phyllis Taverasab i Work Phone: [facility] Work Phone: Start: 06-01-2021 Office outpatient vi sit 40 minutes Phyllis Mae Work Phone: [facility] Work Phone: Start: 05-21-2021 End: 05-21-2021 Postop follow up visit related to original px Dylon Galindo MD Work Phone: [facility] Comment on above: Closed displaced fra cture of greater trochanter of right femur with routine healing, subsequent encounter (Primary Dx) Start: 04-27-2021 Critical care ill/in jured patient init 30-74 min Lev Desai MD Work Phone: [facility] Start: 04-27-2021 End: 05-11-2021 Evaluation and management of inpatient Lev Desai MD Work Phone: [facility] Start: 04-26-2021 End: 04-26-2021 Documentation procedure Kateryna Yeboah CNP Work Phone: [facility] Start: 04-22-2021 End: 04-22-2021 Orders Only Kateryna Yeboah CNP Work Phone: [facility] Comment on above: Urinary retention (P rimary Dx) Start: 04-19-2021 End: 04-19-2021 Documentation procedure Kateryna Yeboah CNP Work Phone: [facility] Start: 04-05-2021 End: 04-05-2021 Documentation procedure Kateryna Yeboah [employer]CH[employer] Work Phone: [facility] Start: 04-01-2021 AUDIT Phyllis Taverasab i Work Phone: [facility] Work Phone: Start: 03-24-2021 End: 03-24-2021 Office outpatient visit 10 minutes Dylon Galindo MD Work Phone: [facility] Comment on above: Closed displaced fra cture of greater trochanter of right femur with routine healing, subsequent encounter (Primary Dx) Start: 03-22-2021 End: 03-22-2021 Documentation procedure Kateryna Yeboah TELEPHONE MECHANIC Work Phone: [facility] Start: 03-16-2021 End: 03-16-2021 Orders Only Kateryna Yeboah TELEPHONE MECHANIC Work Phone: [facility] Start: 03-15-2021 End: 03-15-2021 Documentation procedure Kateryna Yeboah TELEPH[employer] MECHANIC Work Phone: [facility] Start: 2021 End: 2021 Orders Only Kateryna Yeboah TELEPHONE MECHANIC Work Phone: [facility] Comment on above: Claudication of lowe r extremity (HCC) (Primary Dx) Start: 01-13-2021 End: 01-13-2021 Refill David Waters Work Phone: [facility] Comment on above: Type 2 diabetes silvino itus without complications (HCC) Start: 01-11-2021 End: 01-11-2021 Subsequent hospital visit by physician Lance Palacios Work Phone: [facility] Comment on above: Arrived Start: 01-01-2021 End: 01-01-2021 Patient encounter procedure Tosha Mosher Work Phone: [facility] Start: 12-05-2020 End: 12-05-2020 Orders Only Tosha Mosher Work Phone: [facility] Start: 11-23-2020 End: 11-23-2020 Phys/qhp telephone evaluation 21-30 min Aquiles Herrera Work Phone: [facility] Comment on above: Abnormal stress test (Primary Dx); PAD (peripheral artery disease) (HCC); PVD (peripheral vascular disease) (HCC) Start: 09-16-2020 Patient encounter procedure Phyllis Mae [facility] Work Phone: Start: 09-09-2020 Patient encounter procedure Phyllis Mae [facility] Work Phone: Start: 09-08-2020 Patient encounter procedure Phyllis Mae [facility] Work Phone: Start: 08-31-2020 End: 08-31-2020 Subsequent hospital visit by physician Phyllis Mae Work Phone: [facility] Comment on above: Nipple pain Start: 08-17-2020 Patient encounter procedure Phyllis Mae [facility] Work Phone: Start: 08-03-2020 End: 08-03-2020 Office outpatient visit 25 minutes Erica Gardner Work Phone: [facility] Comment on above: Inadequately control led diabetes mellitus (HCC) (Primary Dx); Dyslipidemia Start: 07-20-2020 Patient encounter procedure Phyllis Mae [facility] Work Phone: Start: 06-10-2020 End: 06-10-2020 Emergency department patient visit Ray Hernandez Juan Work Phone: [facility] Comment on above: Closed fracture of m ultiple ribs of right side, initial encounter (Primary Dx); Closed fracture of multiple ribs of left side, initial encounter; Closed extensive facial fractures, initial encounter (HCC); Closed fracture of multiple ribs of both sides, initial encounter; Closed fracture of left orbital floor, initial encounter (HCC) Start: 06-10-2020 Patient encounter procedure Phyllis Mae MD [facility] Work Phone: Start: 06-08-2020 Patient encounter procedure Phyllis Mae MD [facility] Work Phone: Start: 05-25-2020 End: 05-25-2020 Subsequent hospital visit by physician Lola Cruz Work Phone: [facility] Scan Comment on above: Screening for malign ant neoplasm of respiratory organ; Cigarette Smoker Start: 05-19-2020 Patient encounter procedure Phyllis Mae [facility] Work Phone: Start: 05-18-2020 Patient encounter procedure Phyllis Mae [facility] Work Phone: Start: 05-07-2020 Patient encounter procedure Phyllis Mae [facility] Work Phone: Start: 04-28-2020 End: 04-28-2020 Subsequent hospital visit by physician Aquiles Herrera Work Phone: [facility] Comment on above: Chest pain, unspecif ied type; PVD (peripheral vascular disease) (HCC) Arrived Start: 04-25-2020 End: 04-25-2020 Patient encounter procedure AQUILES HERRERA [facility] Start: 04-16-2020 Patient encounter procedure Phyllis Mae [facility] Work Phone: Start: 04-14-2020 End: 04-14-2020 Emergency department patient visit [facility] Start: 04-14-2020 End: 04-14-2020 Emergency department patient visit [facility] Work Phone: [facility] Comment on above: Fall, initial encoun ter (Primary Dx); Alcoholic intoxication with complication (HCC) Start: 04-02-2020 Patient encounter procedure Phyllis Mae [facility] Work Phone: Start: 02-17-2020 End: 02-17-2020 Patient encounter procedure Jasmyn Castillo [employer] Comment on above: proactive outreach Start: 02-11-2020 Refill Lola Cruz MD Work Phone: [facility] Start: 12-27-2019 End: 12-27-2019 Office outpatient new 30 minutes David Waters Work Phone: [facility] Comment on above: IDDM (insulin depend ent diabetes mellitus) (HCC) (Primary Dx); Inadequately controlled diabetes mellitus (HCC); Dyslipidemia Start: 12-18-2019 Patient encounter procedure Phyllis Mae [facility] Work Phone: Start: 12-04-2019 End: 12-04-2019 Office outpatient visit 25 minutes Cameron Munguia Work Phone: [facility] Comment on above: Left carotid artery stenosis (Primary Dx); Stenosis of left iliac artery (HCC); History of carotid endarterectomy; Neurogenic claudication Start: 12-04-2019 End: 12-04-2019 Subsequent hospital visit by physician Cameron Munguia Work Phone: [facility] Comment on above: Stenosis of left car otid artery; History of right-sided carotid endarterectomy 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 Start: 06-05-2019 End: 06-05-2019 Emergency department patient visit Tommydamián Fuentes Work Phone: [facility] Comment on above: COPD exacerbation (H CC) (Primary Dx) Start: 05-27-2019 End: 05-27-2019 Emergency department patient visit Cornelia Mario Work Phone: [facility] Comment on above: Pneumonia of left lo wer lobe due to infectious organism (HCC) (Primary Dx) Start: 05-27-2019 End: 05-27-2019 Office outpatient visit 25 minutes Guillermo Dewitt Work Phone: [facility] Comment on above: Anemia, unspecified type (Primary Dx); Monoclonal gammopathy; Fatigue, unspecified type; SOB (shortness of breath) Start: 05-07-2019 Tamy bray MD Work Phone: [facility] Comment on above: Medication Refill (L ovastatin ) Start: 04-01-2019 End: 04-01-2019 Office outpatient visit 25 minutes Aquiles Herrera Work Phone: [facility] Comment on above: Facial numbness (Linda juanis Dx); Statin intolerance; Abnormal stress test Start: 01-25-2019 End: 01-25-2019 Office outpatient visit 25 minutes Guillermo Dewitt Work Phone: [facility] Comment on above: Anemia, unspecified type (Primary Dx); Monoclonal gammopathy Start: 01-22-2019 End: 01-22-2019 Office outpatient visit 15 minutes Lola Cruz Work Phone: [facility] Comment on above: Chronic obstructive pulmonary disease, unspecified COPD type (HCC) (Primary Dx); Cigarette Smoker; Screening for malignant neoplasm of respiratory organ Start: 01-21-2019 End: 01-21-2019 Patient encounter procedure Lola Cruz Facility:[facility] Comment on above: Screening for malign ant neoplasm of respiratory organ; Cigarette Smoker Start: 11-28-2018 End: 11-28-2018 Office outpatient visit 25 minutes Aquiles Herrera Work Phone: [facility] Comment on above: Stenosis of left car otid artery (Primary Dx); History of right-sided carotid endarterectomy; Stenosis of left iliac artery (HCC); Neurogenic claudication Start: 11-26-2018 Patient encounter procedure Aquiles Herrera Facility:[facility] Start: 11-26-2018 End: 11-26-2018 Patient encounter procedure Aquiles Herrera Work Phone: [facility] Comment on above: Bilateral carotid ar francisco stenosis Start: 11-26-2018 End: 11-26-2018 Subsequent hospital visit by physician Aquiles Herrera Work Phone: [facility] Comment on above: Prominent abdominal aortic pulse Start: 11-25-2018 Refill Lola Cruz MD Work Phone: [facility] Start: 11-15-2018 Patient encounter procedure Phyllis Mae Facility[facility] Start: 11-15-2018 End: 11-16-2018 Patient encounter procedure Phyllis Mae Facility:[facility] Start: 11-13-2018 Patient encounter procedure Aquiles Herrera Facility:[place] Start: 11-13-2018 End: 11-13-2018 Patient encounter procedure Aquiles Herrera Work Phone: [facility] Comment on above: Chest pain, unspecif ied type Start: 11-12-2018 End: 11-12-2018 Patient encounter procedure PHYLLIS MAE [facility] Start: 10-16-2018 End: 10-17-2018 Patient encounter procedure Phyllis Mae Facility:[facility] Start: 09-28-2018 End: 09-28-2018 Office outpatient visit 25 minutes Guillermo Dewitt Work Phone: [facility] Comment on above: Anemia, unspecified type (Primary Dx); Monoclonal gammopathy; Fatigue, unspecified type Start: 09-19-2018 Patient encounter procedure Josh J Andreiattmohit Facility:[place] Start: 09-19-2018 End: 09-19-2018 Patient encounter procedure Josh Santana Moura Work Phone: [facility] Start: 07-17-2018 End: 07-18-2018 Patient encounter procedure Saksham Sulove Facility:[facility] Start: 07-02-2018 Patient encounter procedure Rochelle Kamadana Facility:[place] Start: 07-02-2018 End: 07-02-2018 Patient encounter Rochelle Kamadana Work Phone: [facility] Start: 05-10-2018 Patient encounter procedure Guillermo Esdras Facility:[place] Start: 05-10-2018 End: 05-10-2018 Patient encounter Guillermo Esdras Work Phone: [facility] Start: 05-07-2018 Patient encounter procedure Tristen Bere Menjivar Facility:[place] Start: 05-07-2018 End: 05-07-2018 Ambulatory Tristen Arash Menjivar Work Phone: [facility] Start: 04-25-2018 End: 04-26-2018 Patient encounter procedure Latashaaleks Dailey Facility:[facility] Start: 04-17-2018 End: 04-18-2018 Patient encounter procedure Jose Dailey Facility[facility] Start: 04-08-2018 End: 04-08-2018 Emergency department patient visit Latashaaleks Dailey Facility:[facility] Start: 01-17-2018 Patient encounter procedure Lola Cruz Facility:[place] Start: 01-17-2018 End: 01-17-2018 Ambulatory Lola Cruz Work Phone: [facility] Start: 01-11-2018 End: 01-12-2018 Patient encounter procedure Lola Cruz Facility:[facility] Start: 01-10-2018 End: 01-11-2018 Patient encounter procedure Davi R Omar Facility:Davi Nelson DO Start: 01-04-2018 Office/outpatient vi sit, est, level 4 Guillermo Esdras Work Phone: [facility] Start: 12-21-2017 End: 12-22-2017 Patient encounter procedure Jose Dailey Facility:[facility] Start: 12-20-2017 Patient encounter procedure Guillermo Dewitt Facility:[place] Start: 12-20-2017 End: 12-20-2017 Ambulatory Rochelle Cheung Work Phone: [facility] Start: 12-18-2017 End: 12-18-2017 Patient encounter procedure Davi R Joseselvin Facility:[facility] Start: 11-22-2017 Office/outpatient vi sit, est, level 4 Tristen Menjivar Work Phone: [facility] Start: 10-16-2017 Office/outpatient vi sit, est, level 3 Aquiles Herrera Work Phone: [facility] Start: 09-07-2017 Office outpatient vi sit 25 minutes Guillermo Dewitt Work Phone: [facility] Start: 09-06-2017 End: 09-06-2017 Ambulatory Lola Cruz Work Phone: [facility] Start: 08-30-2017 End: 08-30-2017 Ambulatory Guillermo Dewitt Work Phone: [facility] Start: 08-17-2017 End: 08-17-2017 Patient encounter procedure Guillermo Dewitt Work Phone: [facility] Start: 08-17-2017 Office outpatient ne w 30 minutes Guillermo Dewitt Work Phone: [facility] Start: 07-07-2017 Ophthalmic examinati on and evaluation Phyllis Mae Work Phone: [facility] Work Phone: Ophthalmic examinati on and evaluation Phyllis Mae MD [facility] Work Phone: Patient encounter procedure Phyllis Mae Work Phone: [facility] Work Phone: Procedures Date [...] Microalbumin [Mass/volume] in Urine by Test strip CJ Riley DPM Work Phone: Start: 12-19-2023 Microalbumin [Mass/volume] in Urine by Test strip CJ Riley DPM Work Phone: Start: 07-11-2023 Microalbumin [Mass/volume] in Urine by Test strip Arianna Alfaro TELEPHONE MECHANIC Work Phone: Start: 01-31-2023 Ophthalmic examination and evaluation Don Pennington MD Work Phone: Start: 12-01-2022 3 comp foot exam completed Don patterson MD Work Phone: Start: 12-01-2022 Microalbumin [Mass/volume] in Urine by Test strip Don Pennington MD Work Phone: Start: 06-10-2022 3 comp foot exam completed Erica Gardner PA-C Work Phone: Start: 01-10-2022 3 comp foot exam completed Santana GAGEC Work Phone: Start: 12-14-2021 Microalbumin [Mass/volume] in Urine by Test strip David Waters TELEPHONE MECHANIC Work Phone: Start: 09-29-2021 Lipid 1996 panel - Serum or Plasma Phyllis Mae MD Work Phone: Start: 08-03-2021 Hemoglobin glycosylated a1c David Guerinchrissy Waters TELEPHONE MECHANIC Work Phone: Start: 08-03-2021 3 comp foot exam completed David Leigh Ann vazquez TELEPHONE MECHANIC Work Phone: Start: 05-11-2021 End: 05-11-2021 Glucose [...] MD Work Phone: Start: 05-03-2021 Glucose measurement rByce Alvarez MD Work Phone: Start: 05-03-2021 Glucose measurement Bryce Alvarez MD Work Phone: Start: 05-03-2021 Glucose measurement Bryce Alvarez MD Work Phone: Start: 05-03-2021 RADIOLOGY SCANS Provider Not In System Start: 05-03-2021 Glucose measurement Bryce Alvarez MD Work Phone: Start: 05-03-2021 Basic metabolic panel calcium total Bryce Alvarez MD Work Phone: Start: 05-02-2021 Drug screen quantitative vancomycin Manuelito Durand [facility],PharmD Start: 05-02-2021 Glucose measurement Bryce Alvarez MD Work Phone: Start: 05-02-2021 RADIOLOGY SCANS Provider Not In System Start: 05-02-2021 Glucose measurement Bryce Alvarez MD Work Phone: Start: 05-02-2021 Glucose measurement Bryce Alvarez MD Work Phone: Start: 05-02-2021 Glucose measurement Bryce Alvarez MD Work Phone: Start: 05-02-2021 End: 05-02-2021 Radiologic examination femur 1 view Don Pennington MD Work Phone: Start: 05-02-2021 Creatinine blood Kenna Quintero [facility],PharmD Start: 05-01-2021 Glucose measurement Bryce Alvarez MD [...] Work Phone: Start: 04-29-2021 Glucose measurement Geraldine eRilly MD Work Phone: Start: 2 End: 04-28-2021 Glucose measurement Geraldine Reilly MD [...] Start: 08-03-2020 3 comp foot exam completed Phyllis Nathen Start: 07-28-2020 Microalbumin [Mass/volume] in Urine by Test strip Erica Gardner Start: 06-10-2020 Incentive spirometry Amanda Gorman [...] Chest 2 View PA + Lateral Phyllis Z arrclemencia Start: 05-07-2020 Ct thorax w/o contrast material Phyllis Zarrabi Start: 05-07-2020 VASC LAB PVR (Arterial Physiologic) w/ Exercise Phyllis Mae Start: 04-28-2020 Radionuclide myocardial perfusion study Aquiles Herrera Work Phone: Start: 04-14-2020 End: 04-14-2020 Ct thoracic spine w/o contrast material Rachel Kasie Horowitz Work Phone: Start: 04-14-2020 CT of chest, abdomen and pelvis without contrast Rachel Kasie Horowitz Work Phone: Start: 04-14-2020 CT cervical spine without contrast Rachel Kasie Horoiwtz Work Phone: Start: 04-14-2020 CT of head without contrast Rachel Kasie Horowitz Work Phone: Start: 04-14-2020 Radiologic exam chest single view Ray Scherer Work Phone: Start: 04-14-2020 Gases blood ph direct quynh xcpt pulse oximitry Ray Scherer Work Phone: Start: 04-14-2020 Prothrombin time [place] [facility] Start: 04-14-2020 COVID-19, MOLECULAR Ray [...] Start: 12-27-2019 3 comp foot exam completed Jasmyncarrillo Kat Start: 12-11-2019 Microalbumin [Mass/volume] in Urine by Test strip Dvaid Waters Start: 12-04-2019 Measurement of segmental blood pressure of artery of lower limb using doppler ultrasonography Cameron Munguia Work Phone: Start: 12-04-2019 Carotid artery doppler assessment KikoVito Munguia Work Phone: Start: 06-05-2019 Natriuretic peptide [facility] Start: 06-05-2019 Assay of troponin quantitative [facility] Start: 06-05-2019 12 lead ECG Bret Guykathy Work Phone: Start: 06-05-2019 Basic metabolic panel calcium total [facility] Start: 06-05-2019 POC CBC AND [...] Phone: Start: 04-01-2019 12 lead ECG Aquiles Herrera Work Phone: Start: 01-21-2019 Low dose computed tomography of thorax Lola Shaniqua Shamir Work Phone: Start: 11-26-2018 Carotid artery doppler assessment Aquiles Herrera Work Phone: Start: 11-26-2018 Dup-scan aorta ivc iliac vascl/bpgs uni/lmtd Aquiles Herrera Work Phone: Start: 11-13-2018 Cv strs tst xers&/or rx cont ecg w/o i&r Aquiles Herrera Work Phone: Start: 11-12-2018 Lipid 1996 [...] 07-02-2018 End: 07-02-2018 Assay of magnesium Rochelle Cheung Work Phone: Start: 07-02-2018 End: 07-02-2018 Assay of phosphorus inorganic Rochelle espinosa Work Phone: Start: 07-02-2018 End: 07-02-2018 Calcium total Rochelle Cheung Work Phone: Start: 07-02-2018 End: 07-02-2018 Electrolyte panel Rochelle Cheung Work Phone: Start: 07-02-2018 End: 07-02-2018 Hemoglobin and Hematocrit panel - Blood Rochelle Cheung Work Phone: Start: 07-02-2018 End: 07-02-2018 [facility] - PARATHYROID HORMONE Rochelle blackburn Work Phone: Start: 07-02-2018 End: 07-02-2018 [facility] - PROTEIN PANEL, URINE Rochelle chavez Work Phone: Start: 07-02-2018 Microalbumin [Mass/volume] in Urine by Test strip Bret Fuentes Start: 04-25-2018 Microalbumin [Mass/volume] in Urine by Test strip Aquiles Herrera Start: 12-18-2017 Colonoscopy Phyllis Mae MD Work Phone: Start: 06-30-2016 Esophagogastroduodenoscopy Phyllis cantu Work Phone: Start: 03-30-2016 History of carotid endarterectomy History of carotid endarterectomy Kateryna Yeboah CNP Work Phone: Start: 07-10-2015 Repair of musculotendinous cuff of shoulder Phyllis Mae Work Phone: Comment on above: LT; Start: 10-30-2013 Colonoscopy Dylon Galindo MD Work Phone: Start: 10-30-2013 Colonoscopy Phyllis Taverasclemencia Work Phone: Comment on above: POLYPS; Start: 08-30-2010 Procedure on neck Phyllis Mae Work Phone: Start: 10-30-2006 Operative procedure on hand Phyllis gramajo Work Phone: Colonoscopy Phyllis Mae Comment on above: Completed: 2013 End: 06-30-2016 Esophagogastroduodenoscopy Phyllis cantu History of carotid endarterectomy History of carotid endarterectomy Cameron Munguia DO Work Phone: Operative procedure on hand Phyllis Mae Comment on above: Completed: 2006 Operative procedure on hip F mirian Mae Work Phone: End: 08-30-2010 Procedure on neck Phyllis Mae End: 07-10-2015 Repair of musculotendinous cuff of shoulder Phyllis Mae Plan of Treatment Date Care Activity Detail Author Start: 06-10-2030 DTaP/Tdap/Td Vaccines (2 - Td or Tdap) DTaP/Tdap/Td Vaccines (2 - Td or Tdap) [facility] Start: 06-10-2030 Tetanus vaccination Tetanus: Every 10yrs [facility] Start: 12-18-2027 Screening for malignant neoplasm of colon [facility] Start: 03-08-2026 Glaucoma screening Diabetes: Retinopathy Screening [facility] Start: 11-06-2025 Medicare Annual Wellness Visit Medicare Annual Wellness Visit (AWV) [facility] Start: 11-05-2025 Medicare Wellness Visit Medicare Wellness Visit [facility] Start: 11-05-2025 End: 11-05-2025 Patient encounter procedure 11/05/2025 12:45 PM EST Office Visit [facility] [address] [place] [phone] Phyllis Mae MD [address] [place] [address] [facility] Start: 09-09-2025 Diabetic foot examination Diabetic Foot Exam [facility] Start: 05-07-2025 Diabetic foot examination Diabetic Foot Exam [facility] Start: 04-25-2025 Lipid panel Lipid Panel [facility] Start: 04-10-2025 [facility] Start: 04-08-2025 End: 04-08-2025 Patient encounter procedure 04/08/2025 1:15 PM EDT Office Visit [facility] [address] [place] [address] BHUMIKA Lin, DPRemedios [address] [place] [address] [facility] Start: 04-05-2025 Prostate specific antigen measurement PSA Level [facility] Start: 03-08-2025 Glaucoma screening [facility] Start: 03-08-2025 Urine screening for protein [facility] Start: 03-04-2025 Urine screening for protein eGFR Diabetes [facility] Start: 03-04-2025 End: 03-04-2025 Patient encounter procedure 03/04/2025 12:45 PM EDT Office Visit [facility] [address] [place] [address] Phyllis Mae MD [address] [place] [address] [facility] Start: 02-27-2025 Medicare Annual Wellness Visit Medicare Annual Wellness Visit (AWV) [facility] Start: 02-26-2025 History and physical examination, annual for health maintenance Wellness Visit [facility] Start: 02-26-2025 Medicare Wellness Visit Medicare Wellness Visit [facility] Start: 01-02-2025 End: 01-02-2025 Patient encounter procedure 01/02/2025 1:15 PM EST Office Visit [facility] [address] [place] [address] BHUMIKA Lin, VENESSA [address] [place] [address] [facility] Start: 12-27-2024 Urine screening for protein Urine (micro)albumin/creatinine ratio - Diabetes [facility] Start: 12-19-2024 Diabetic foot examination Diabetic Foot Exam [facility] Start: 12-19-2024 Urine screening for protein Urine Microalbumin [facility] Start: 12-11-2024 End: 12-11-2024 Patient encounter procedure 12/11/2024 2:15 PM EST Office Visit [facility] [address] [facility] [place] [address] Fior Forbes, RAQUEL [address] [place] [address] [facility] Start: 12-10-2024 End: 09-09-2025 Comprehensive metabolic 2000 panel - Serum or Plasma Comprehensive Metabolic Panel Lab Routine Type 2 diabetes mellitus with stage 3b chronic kidney disease, with long-term current use of insulin (HCC) Expected: 12/10/2024, Expires: 09/09/2025 [facility] Work Phone: Comment on above: Expected: 12/10/2024, Expires: Start: 12-10-2024 End: 09-09-2025 Hemoglobin A1c/Hemoglobin.total in Blood Hemoglobin A1c Lab Routine Type 2 diabetes mellitus with stage 3b chronic kidney disease, with long-term current use of insulin (HCC) Expected: 12/10/2024, Expires: 09/09/2025 [facility] Comment on above: Expected: 12/10/2024, Expires: Start: 12-10-2024 End: 09-09-2025 Lipid 1996 panel - Serum or Plasma Lipid Panel Lab Routine Dyslipidemia Expected: 12/10/2024, Expires: 09/09/2025 [facility] Comment on above: Expected: 12/10/2024, Expires: Start: 12-10-2024 End: 09-09-2025 Microalbumin measurement, urine, quantitative Microalbumin/Creatinine Ratio, UR Random Lab Routine Type 2 diabetes mellitus with stage 3b chronic kidney disease, with long-term current use of insulin (HCC) Expected: 12/10/2024, Expires: 09/09/2025 [facility] Comment on above: Expected: 12/10/2024, Expires: Start: 12-10-2024 End: 09-09-2025 Thyrotropin [Units/volume] in Serum or Plasma TSH Lab Routine Type 2 diabetes mellitus with stage 3b chronic kidney disease, with long-term current use of insulin (HCC) Expected: 12/10/2024, Expires: 09/09/2025 [facility] Comment on above: Expected: 12/10/2024, Expires: Start: 12-10-2024 End: 09-09-2025 Thyroxine (T4) free [Mass/volume] in Serum or Plasma T4, Free Lab Routine Type 2 diabetes mellitus with stage 3b chronic kidney disease, with long-term current use of insulin (HCC) Expected: 12/10/2024, Expires: 09/09/2025 [facility] Comment on above: Expected: 12/10/2024, Expires: Start: [...] acid level Expected: 12/05/2024 (Approximate), Expires: 12/05/2025 [facility] Work Phone: Comment on above: Expected: 12/05/2024 (Approximate), Expi res: 12/05/2025 Start: 12-05-2024 Hemoglobin A1c measurement A1C [facility] Start: 12-05-2024 End: 12-05-2025 Hemoglobin A1c/Hemoglobin.total in Blood Hemoglobin A1C Lab Routine Type 2 diabetes mellitus with hyperglycemia, with long-term current use of insulin Expected: 12/05/2024 (Approximate), Expires: 12/05/2025 [facility] Work Phone: Comment on above: Expected: 12/05/2024 (Approximate), Expi res: 12/05/2025 Start: 12-05-2024 End: 12-05-2025 Lipid 1996 panel - Serum or Plasma Lipid Panel Lab Routine Mixed hyperlipidemia Expected: 12/05/2024 (Approximate), Expires: 12/05/2025 [facility] Work Phone: Comment on above: Expected: 12/05/2024 (Approximate), Expi res: 12/05/2025 Start: 12-05-2024 End: 12-05-2025 Magnesium [Mass/volume] in Serum or Plasma Magnesium Lab Routine Anemia, unspecified type Expected: 12/05/2024 (Approximate), Expires: 12/05/2025 [facility] Work Phone: Comment on above: Expected: 12/05/2024 (Approximate), Expi res: 12/05/2025 Start: 12-05-2024 End: 12-05-2025 Prostate specific Ag [Mass/volume] in Serum or Plasma Prostate Specific Antigen, Screen Lab Routine Prostate cancer screening Expected: 12/05/2024 (Approximate), Expires: 12/05/2025 [facility] Work Phone: Comment on above: Expected: 12/05/2024 (Approximate), Expi res: 12/05/2025 Start: 12-05-2024 End: 12-05-2025 Zinc [Mass/volume] in Serum or Plasma Zinc Lab Routine Anemia, unspecified type Expected: 12/05/2024 (Approximate), Expires: 12/05/2025 [facility] Work Phone: Comment on above: Expected: 12/05/2024 (Approximate), Expi res: 12/05/2025 Start: 12-05-2024 End: 12-05-2024 Patient encounter procedure 12/05/2024 12:45 PM EST Office Visit [facility] [address] [place] [phone] Phyllis Mae MD [address] [place] [address] [facility] Start: 11-26-2024 End: 11-26-2024 Patient encounter procedure 11/26/2024 1:15 PM EST Office Visit [facility] [address] [place] [address] [facility] Start: 11-19-2024 End: 11-19-2024 Patient encounter procedure 11/19/2024 10:15 AM EST Office Visit [facility] [address] [place] [address] [facility] Start: 11-05-2024 End: 11-05-2025 CBC W Auto Differential panel - Blood CBC and Auto Differential Lab Routine Anemia, unspecified type Expected: 11/05/2024 (Approximate), Expires: 11/05/2025 [facility] Work Phone: Comment on above: Expected: 11/05/2024 (Approximate), Expi res: 11/05/2025 Start: 11-05-2024 End: 11-05-2025 Cobalamin (Vitamin B12) [Mass/volume] in Serum or Plasma Vitamin B12 Lab Routine Anemia, unspecified type Expected: 11/05/2024 (Approximate), Expires: 11/05/2025 [facility] Work Phone: Comment on above: Expected: [...] unspecified type Expected: 11/05/2024 (Approximate), Expires: 11/05/2025 [facility] Work Phone: Comment on above: Expected: 11/05/2024 (Approximate), Expi res: 11/05/2025 Start: 11-05-2024 End: 11-05-2025 Folate [Mass/volume] in Serum or Plasma Folate Lab Routine Anemia, unspecified type Expected: 11/05/2024 (Approximate), Expires: 11/05/2025 [facility] Work Phone: Comment on above: Expected: 11/05/2024 (Approximate), Expi res: 11/05/2025 Start: 11-05-2024 Hemoglobin A1c measurement Diabetes: Hemoglobin A1C [facility] Start: 11-05-2024 End: 11-05-2025 Hemoglobin A1c/Hemoglobin.total in Blood Hemoglobin A1C Lab Routine Type 2 diabetes mellitus with hyperglycemia, with long-term current use of insulin Expected: 11/05/2024 (Approximate), Expires: 11/05/2025 [facility] Work Phone: Comment on above: Expected: 11/05/2024 (Approximate), Expi res: 11/05/2025 Start: 11-05-2024 End: 11-05-2025 Iron and Iron binding capacity panel - Serum or Plasma Iron and TIBC Lab Routine Anemia, unspecified type Expected: 11/05/2024 (Approximate), Expires: 11/05/2025 [facility] Work Phone: Comment on above: Expected: 11/05/2024 (Approximate), Expi res: 11/05/2025 Start: 11-05-2024 End: 11-05-2025 Magnesium [Mass/volume] in Serum or Plasma Magnesium Lab Routine Chronic fatigue Expected: 11/05/2024 (Approximate), Expires: 11/05/2025 [facility] Work Phone: Comment on above: Expected: 11/05/2024 (Approximate), Expi res: 11/05/2025 Start: 11-05-2024 End: 11-05-2025 Methylmalonate [Moles/volume] in Serum or Plasma Methylmalonic Acid Lab Routine Anemia, unspecified type Expected: 11/05/2024 (Approximate), Expires: 11/05/2025 [facility] Work Phone: Comment on above: Expected: 11/05/2024 (Approximate), Expi res: 11/05/2025 Start: 11-05-2024 End: 11-05-2025 Microalbumin/Creatini ne [Mass Ratio] in Urine Albumin-Creatinine Ratio, Urine Random Lab Routine Type 2 diabetes mellitus with hyperglycemia, with long-term current use of insulin Expected: 11/05/2024 (Approximate), Expires: 11/05/2025 [facility] Work Phone: Comment on above: Expected: 11/05/2024 (Approximate), Expi res: 11/05/2025 Start: 11-05-2024 End: 11-05-2025 TSH with reflex to Free T4 if abnormal TSH with reflex to Free T4 if abnormal Lab Routine Chronic fatigue Expected: 11/05/2024 (Approximate), Expires: 11/05/2025 [facility] Work Phone: Comment on above: Expected: 11/05/2024 (Approximate), Expi res: 11/05/2025 Start: 11-05-2024 End: 11-05-2025 Zinc [Mass/volume] in Serum or Plasma Zinc Lab Routine Chronic fatigue Expected: 11/05/2024 (Approximate), Expires: 11/05/2025 [facility] Work Phone: Comment on above: Expected: 11/05/2024 (Approximate), Expi res: 11/05/2025 Start: 10-18-2024 Diabetic foot examination Diabetic Foot Exam [facility] Start: 10-03-2024 End: 10-03-2024 Patient encounter procedure 10/03/2024 3:40 PM EST Office Visit [facility] [address] 3rd [place] [phone] Cameron Munguia III, DO [address] [place] [address] [facility] Start: 10-03-2024 End: 10-03-2024 Patient encounter procedure [facility] Start: 09-23-2024 End: 09-23-2024 Patient encounter procedure [facility] Start: 09-16-2024 End: 09-16-2024 Patient encounter procedure [facility] Start: 09-09-2024 End: 09-09-2024 Patient encounter procedure 09/09/2024 2:30 PM EST Office Visit [facility] [address] [facility] [place] [address] Fior Forbes, TELEPHONE MECHANIC [address] [place] [address] [facility] Start: 09-08-2024 Urine screening for protein Urine (micro)albumin/creatinine ratio - Diabetes [facility] Start: 07-26-2024 Hemoglobin A1c measurement [facility] Start: 07-25-2024 End: 07-25-2025 CBC W Auto Differential panel - Blood CBC and Auto Differential Lab Routine Thrombocytopenia ([facility]) Fatigue, unspecified type Expected: 07/25/2024 (Approximate), Expires: 07/25/2025 [facility] Work Phone: Comment on above: Expected: 07/25/2024 (Approximate), Expi res: 07/25/2025 Start: 07-25-2024 End: 07-25-2025 Comprehensive metabolic 2000 panel - Serum or Plasma Comprehensive Metabolic Panel Lab Routine Fatigue, unspecified type CRF (chronic renal failure), stage 3 (moderate) (Multi) Type 2 diabetes mellitus with hyperglycemia, with long-term current use of insulin (Multi) Expected: 07/25/2024 (Approximate), Expires: 07/25/2025 [facility] Work Phone: Comment on above: Expected: 07/25/2024 (Approximate), Expi res: 07/25/2025 Start: 07-25-2024 End: 07-25-2025 Hemoglobin A1c/Hemoglobin.total in Blood Hemoglobin A1C Lab Routine Type 2 diabetes mellitus with hyperglycemia, with long-term current use of insulin (Multi) Expected: 07/25/2024 (Approximate), Expires: 07/25/2025 [facility] Work Phone: Comment on above: Expected: 07/25/2024 (Approximate), Expi res: 07/25/2025 Start: 07-25-2024 End: 07-25-2025 Magnesium [Mass/volume] in Serum or Plasma Magnesium Lab Routine Fatigue, unspecified type Expected: 07/25/2024 (Approximate), Expires: 07/25/2025 [facility] Work Phone: Comment on above: Expected: 07/25/2024 (Approximate), Expi res: 07/25/2025 Start: 07-25-2024 End: 07-25-2025 TSH with reflex to Free T4 if abnormal TSH with reflex to Free T4 if abnormal Lab Routine Fatigue, unspecified type Expected: 07/25/2024 (Approximate), Expires: 07/25/2025 [facility] Work Phone: Comment on above: Expected: [...] unspecified type Expected: 07/25/2024 (Approximate), Expires: 07/25/2025 [facility] Work Phone: Comment on above: Expected: 07/25/2024 (Approximate), Expi res: 07/25/2025 Start: 07-11-2024 Urine screening for protein Urine Microalbumin [facility] Start: 07-09-2024 End: 07-09-2024 Patient encounter procedure 07/09/2024 2:15 PM EDT Office Visit [address] [address] [facility] Start: 06-30-2024 COVID-19 Vaccine ( season) COVID-19 Vaccine () [facility] Start: 06-30-2024 COVID-19 Vaccine () COVID-19 Vaccine () [facility] Start: 06-30-2024 Influenza vaccination Influenza Vaccine (#1) [facility] Start: 06-27-2024 End: 06-27-2024 Patient encounter procedure 06/27/2024 2:00 PM EDT Office Visit [facility] [address] [facility] [place] [phone] BHUMIKA Lni, DPM [facility] [place] [address] [facility] Start: 06-08-2024 Hemoglobin A1c measurement A1C [facility] Start: 05-21-2024 End: 05-21-2024 Patient encounter procedure 05/21/2024 8:15 AM EDT Office Visit [facility] [address] [facility] [place] [phone] BHUMIKA Lin, DPM [facility] [place] [address] [facility] Start: 05-14-2024 End: 05-14-2025 Wound Anaerobic Culture Wound Anaerobic Culture Microbiology Routine Ingrown toenail Paronychia of great toe PVD (peripheral vascular disease) (HCC) Tobacco use Xerosis of skin Diabetic foot (HCC) Expected: 05/14/2024, Expires: 05/14/2025 [facility] Comment on above: Expected: 05/14/2024, Expires: Start: 03-26-2024 End: 03-26-2024 Patient encounter procedure 03/26/2024 1:30 PM EDT Office Visit [facility] [address] [facility] [place] [phone] BHUMIKA Lin, DPM [address] [place] [address] [facility] Start: 03-19-2024 End: 03-19-2024 Patient encounter procedure 03/19/2024 1:45 PM EDT Office Visit [facility] [address] [facility] [place] [phone] David Waters, RAQUEL [address] [place] [address] [facility] Start: 2024 Respiratory Syncytial Virus Immunization: Risk, 60-74 Risk, or 75+ (1 - 1-dose 75+ series) Respiratory Syncytial Virus Immunization: Risk, 60-74 Risk, or 75+ (1 - 1-dose 75+ series) [facility] Start: 2024 RSV High Risk: (Elderly (60+) or Population) (1 - 1-dose 75+ series) RSV High Risk: (Elderly (60+) or Population) (1 - 1-dose 75+ series) [facility] Start: 02-28-2024 Screening for malignant neoplasm of lung Low-dose CT Lung Cancer Screen [facility] Start: 02-27-2024 End: 02-27-2024 Patient encounter procedure 02/27/2024 1:30 PM EDT Office Visit [facility] [address] [place] [address] Phyllis Mae MD [address] [place] [address] [facility] Start: 02-21-2024 End: 02-21-2024 Patient encounter procedure 02/21/2024 3:00 PM EDT Appointment [facility] [address] [facility] [place] [phone] BHUMIKA Lin, DPM [address] [place] [address] [facility] Start: 02-17-2024 End: 10-18-2024 Comprehensive metabolic 2000 panel - Serum or Plasma Comprehensive Metabolic Panel Lab Routine Type 2 diabetes mellitus with stage 3b chronic kidney disease, with long-term current use of insulin (HCC) Expected: 02/17/2024, Expires: 10/18/2024 [facility] Work Phone: Comment on above: Expected: 02/17/2024, Expires: Start: 02-17-2024 End: 10-18-2024 Hemoglobin A1c/Hemoglobin.total in Blood Hemoglobin A1c Lab Routine Type 2 diabetes mellitus with stage 3b chronic kidney disease, with long-term current use of insulin (HCC) Expected: 02/17/2024, Expires: 10/18/2024 [facility] Comment on above: Expected: 02/17/2024, Expires: Start: 02-17-2024 End: 10-18-2024 Lipid 1996 panel - Serum or Plasma Lipid Panel Lab Routine Dyslipidemia Expected: 02/17/2024, Expires: 10/18/2024 [facility] Comment on above: Expected: 02/17/2024, Expires: Start: 02-17-2024 End: 10-18-2024 Microalbumin measurement, urine, quantitative Microalbumin/Creatinine Ratio, UR Random Lab Routine Type 2 diabetes mellitus with stage 3b chronic kidney disease, with long-term current use of insulin (HCC) Expected: 02/17/2024, Expires: 10/18/2024 [facility] Comment on above: Expected: 02/17/2024, Expires: Start: 02-17-2024 End: 10-18-2024 Thyrotropin [Units/volume] in Serum or Plasma TSH Lab Routine Type 2 diabetes mellitus with stage 3b chronic kidney disease, with long-term current use of insulin (HCC) Expected: 02/17/2024, Expires: 10/18/2024 [facility] Comment on above: Expected: 02/17/2024, Expires: Start: 02-17-2024 End: 10-18-2024 Thyroxine (T4) free [Mass/volume] in Serum or Plasma T4, Free Lab Routine Type 2 diabetes mellitus with stage 3b chronic kidney disease, with long-term current use of insulin (HCC) Expected: 02/17/2024, Expires: 10/18/2024 [facility] Comment on above: Expected: 02/17/2024, Expires: Start: 02-01-2024 Glaucoma screening [facility] Start: 01-29-2024 End: 01-29-2024 Patient encounter procedure 01/29/2024 3:00 PM EDT Appointment [facility] [address] [facility] [place] [address] BHUMIKA Lin, DPM [address] [place] [address] [facility] Start: 01-10-2024 Hemoglobin A1c measurement [facility] Start: 12-30-2023 Medicare Annual Wellness Visit Medicare Annual Wellness Visit (AWV) [facility] Start: 12-14-2023 End: 12-14-2024 CBC W Auto Differential panel - Blood CBC and Auto Differential Lab Routine Anemia, unspecified type Expected: 12/14/2023 (Approximate), Expires: 12/14/2024 [facility] Work Phone: Comment on above: Expected: [...] insulin (CMS/HCC) Expected: 12/14/2023 (Approximate), Expires: 12/14/2024 [facility] Work Phone: Comment on above: Expected: 12/14/2023 (Approximate), Expi res: 12/14/2024 Start: 12-14-2023 End: 12-14-2024 Lipid 1996 panel - Serum or Plasma Lipid Panel Lab Routine Hypertriglyceridemia Expected: 12/14/2023 (Approximate), Expires: 12/14/2024 [facility] [facility] Work Phone: Comment on above: Expected: 12/14/2023 (Approximate), Expi res: 12/14/2024 Start: 12-14-2023 End: 12-14-2024 Prostate specific Ag [Mass/volume] in Serum or Plasma Prostate Specific Antigen, Screen Lab Routine Screening for prostate cancer Expected: 12/14/2023 (Approximate), Expires: 12/14/2024 [facility] Work Phone: Comment on above: Expected: 12/14/2023 (Approximate), Expi res: 12/14/2024 Start: 12-01-2023 Diabetic foot examination [facility] Start: 12-01-2023 Urine screening for protein Urine Microalbumin [facility] Start: 11-12-2023 Fasting lipid profile LIPID SCREENING [facility] Work Phone: Start: 10-30-2023 Screening for malignant neoplasm of colon [facility] Start: 10-18-2023 End: 10-18-2023 Patient encounter procedure 10/18/2023 1:00 PM EST Office Visit [facility] [address] [facility] [place] [address] Fior Forbes, RAQUEL [address] [place] [address] [facility] Start: 10-11-2023 End: 10-11-2023 Patient encounter procedure 10/11/2023 1:00 PM EST Office Visit [facility] [address] [facility] [address], 2nd [place] [address] Deshaun Rodrigues MD [address] [address] [facility] Start: 10-09-2023 Hemoglobin A1c measurement [facility] Start: 07-19-2023 End: 07-19-2023 Patient encounter procedure 07/19/2023 3:20 PM EDT Office Visit [facility] [address] [facility] [place] [address] Aquiles Herrera MD [address] [place] [address] [facility] Start: 06-30-2023 COVID-19 Vaccine ( season) COVID-19 Vaccine () [facility] Start: 06-30-2023 Influenza vaccination Sequential Influenza Vaccine (#1) [facility] Start: 06-16-2023 End: 06-16-2023 Patient encounter procedure 06/16/2023 2:15 PM EDT Office Visit [facility] [address] [facility] [place] [address] Fior Forbes CNP [address] [place] [address] [facility] Start: 06-10-2023 Diabetic foot examination Foot Exam [facility] Start: 04-21-2023 End: 04-21-2023 Patient encounter procedure 04/21/2023 11:30 AM EDT Office Visit [facility] [address] [facility] [place] [address] Santana Orosco PA-C [address] [place] [address] [facility] Start: 04-05-2023 End: 04-05-2023 Patient encounter procedure 04/05/2023 2:30 PM EDT Office Visit [facility] [address] [facility] Office Building, 2nd [place] [id number] Deshaun Rodrigues MD [address] [facility] [place] [address] [place] [address] [facility] Start: 03-07-2023 End: 03-07-2024 CBC W Auto Differential panel - Blood CBC and Auto Differential Lab Routine Other fatigue Expected: 03/07/2023 (Approximate), Expires: 03/07/2024 [facility] Work Phone: Comment on above: Expected: 03/07/2023 (Approximate), Expi res: 03/07/2024 Start: 03-07-2023 End: 03-07-2024 Cobalamin (Vitamin B12) [Mass/volume] in Serum or Plasma Vitamin B12 Lab Routine Other fatigue Expected: 03/07/2023 (Approximate), Expires: 03/07/2024 [facility] Work Phone: Comment on above: Expected: 03/07/2023 (Approximate), Expi res: 03/07/2024 Start: 03-07-2023 End: 03-07-2024 Comprehensive metabolic 2000 panel - Serum or Plasma Comprehensive Metabolic Panel Lab Routine Hypertension associated with type 2 diabetes mellitus (CMS/HCC) Type 2 diabetes mellitus without complication, with long-term current use of insulin (CMS/HCC) Expected: 03/07/2023 (Approximate), Expires: 03/07/2024 [facility] Service Area Work Phone: Comment on above: Expected: 03/07/2023 (Approximate), Expi res: 03/07/2024 Start: 03-07-2023 End: 03-07-2024 Folate [Mass/volume] in Serum or Plasma Folate Lab Routine Other fatigue Expected: 03/07/2023 (Approximate), Expires: 03/07/2024 [facility] Work Phone: Comment on above: Expected: 03/07/2023 (Approximate), Expi res: 03/07/2024 Start: 03-07-2023 End: 03-07-2024 Hemoglobin A1c/Hemoglobin.total in Blood Hemoglobin A1C Lab Routine Type 2 diabetes mellitus without complication, with long-term current use of insulin ([facility]) Expected: 03/07/2023 (Approximate), Expires: 03/07/2024 [facility] Work Phone: Comment on above: Expected: 03/07/2023 (Approximate), Expi res: 03/07/2024 Start: 03-07-2023 End: 03-07-2024 Magnesium [Mass/volume] in Serum or Plasma Magnesium Lab Routine Other fatigue Expected: 03/07/2023 (Approximate), Expires: 03/07/2024 [facility] Work Phone: Comment on above: Expected: 03/07/2023 (Approximate), Expi res: 03/07/2024 Start: 03-07-2023 End: 03-07-2024 Methylmalonate [Moles/volume] in Serum or Plasma Methylmalonic Acid Lab Routine Other fatigue Expected: 03/07/2023 (Approximate), Expires: 03/07/2024 [facility] Work Phone: Comment on above: Expected: 03/07/2023 (Approximate), Expi res: 03/07/2024 Start: 03-07-2023 End: 03-07-2024 Prostate specific Ag [Mass/volume] in Serum or Plasma Prostate Specific Antigen, Screen Lab Routine Screening for prostate cancer Expected: 03/07/2023 (Approximate), Expires: 03/07/2024 [facility] Work Phone: Comment on above: Expected: 03/07/2023 (Approximate), Expi res: 03/07/2024 Start: 01-11-2023 Prostate specific antigen measurement PSA Level [facility] Start: 01-10-2023 Diabetic foot examination Foot Exam [facility] Start: 01-02-2023 Hemoglobin A1c measurement A1C [facility] Start: 12-22-2022 Hemoglobin A1c measurement A1C [facility] Start: 12-20-2022 FUV, Provider: Phyllis Mae, Status: Pen, Time: 1:00 PM FUV, Provider: Phyllis Mae, Status: Pen, Time: 1:00 PM [facility] Work Phone: Start: 12-20-2022 Patient encounter procedure [facility] Start: 12-14-2022 Microalbumin measurement, urine, quantitative Urine Microalbumin [facility] Start: 12-14-2022 Urine screening for protein Urine Microalbumin [facility] Start: 12-07-2022 End: 12-07-2022 Patient encounter procedure 12/07/2022 Office Visit Neurology Deshaun Rodrigues MD 335 Beth Dumont [address] [address] [facility] Start: 12-05-2022 End: 12-05-2022 Patient encounter procedure 12/05/2022 Office Visit Cardiology Aquiles Herrera MD [address] [address] [facility] Start: 12-01-2022 End: 12-01-2022 Patient encounter procedure 12/01/2022 Office Visit Endocrinology David Waters CNP [address] [place] [address] [facility] Start: 11-23-2022 End: 11-23-2022 Patient encounter procedure 11/23/2022 Office Visit Wound Care Maureen Brown MD [address] [facility] [address] [place] [address] [facility] Start: 11-12-2022 Hemoglobin A1c measurement A1C [facility] Start: 11-01-2022 FUV, Provider: Phyllis Mae, Status: Pen, Time: 12:45 PM FUV, Provider: Phyllis Mae, Status: Giacomo, Time: 12:45 PM [facility] Work Phone: Start: 10-11-2022 End: 10-11-2022 Patient encounter procedure 10/11/2022 Office Visit Endocrinology David Waters CNP [address] [place] [address] [facility] Start: 10-10-2022 End: 06-10-2023 Complete blood count with white cell differential, manual CBC and Differential Lab Routine Type 2 diabetes mellitus with stage 3b chronic kidney disease, with long-term current use of insulin (HCC) Expected: 10/10/2022 (Approximate), Expires: 06/10/2023 [facility] Comment on above: Expected: 10/10/2022 (Approximate), Expi res: 06/10/2023 Start: 10-10-2022 End: 06-10-2023 Comprehensive metabolic 2000 panel - Serum or Plasma Comprehensive Metabolic Panel Lab Routine Type 2 diabetes mellitus with stage 3b chronic kidney disease, with long-term current use of insulin (HCC) Expected: 10/10/2022 (Approximate), Expires: 06/10/2023 [facility] Comment on above: Expected: 10/10/2022 (Approximate), Expi res: 06/10/2023 Start: 10-10-2022 End: 06-10-2023 Hemoglobin A1c/Hemoglobin.total in Blood Hemoglobin A1c Lab Routine Type 2 diabetes mellitus with stage 3b chronic kidney disease, with long-term current use of insulin (HCC) Expected: 10/10/2022 (Approximate), Expires: 06/10/2023 [facility] Work Phone: Comment on above: Expected: 10/10/2022 (Approximate), Expi res: 06/10/2023 Start: 10-10-2022 End: 06-10-2023 Lipid 1996 panel - Serum or Plasma Lipid Panel Lab Routine Type 2 diabetes mellitus with stage 3b chronic kidney disease, with long-term current use of insulin (HCC) Expected: 10/10/2022 (Approximate), Expires: 06/10/2023 [facility] Comment on above: Expected: 10/10/2022 (Approximate), Expi res: 06/10/2023 Start: 10-10-2022 End: 06-10-2023 Thyrotropin [Units/volume] in Serum or Plasma TSH Lab Routine Type 2 diabetes mellitus with stage 3b chronic kidney disease, with long-term current use of insulin (HCC) Expected: 10/10/2022 (Approximate), Expires: 06/10/2023 [facility] Comment on above: Expected: 10/10/2022 (Approximate), Expi res: 06/10/2023 Start: 10-10-2022 End: 06-10-2023 Thyroxine (T4) free [Mass/volume] in Serum or Plasma T4, Free Lab Routine Type 2 diabetes mellitus with stage 3b chronic kidney disease, with long-term current use of insulin (HCC) Expected: 10/10/2022 (Approximate), Expires: 06/10/2023 [facility] Comment on above: Expected: 10/10/2022 (Approximate), Expi res: 06/10/2023 Start: 10-04-2022 End: 10-04-2022 Patient encounter procedure 10/04/2022 Appointment Cardiology Aquiles Herrera MD [address] [place] [address] [facility] Start: 09-29-2022 Lipid panel Lipid Panel [facility] Start: 08-15-2022 End: 08-15-2022 Patient encounter procedure 08/15/2022 Appointment Cardiology Aquiles Herrera MD [address] [place] [address] [facility] Start: 08-03-2022 Diabetic foot examination Foot Exam [facility] Start: 07-29-2022 End: 07-29-2022 Patient encounter procedure 07/29/2022 Appointment Cardiology Aquiles Herrera MD [address] [place] [address] [facility] Start: 07-28-2022 Prostate specific antigen measurement PSA Level [facility] Start: 07-05-2022 FUV, Provider: Phyllis Mae, Status: Pen, Time: 1:45 PM FUV, Provider: Phyllis Mae, Status: Pen, Time: 1:45 PM [facility] Work Phone: Start: 06-30-2022 Influenza vaccination Sequential Influenza Vaccine (#1) [facility] Start: 06-28-2022 FUV, Provider: Phyllis Mae, Status: Pen, Time: 11:30 AM FUV, Provider: Phyllis Mae, Status: Pen, Time: 11:30 AM [facility] Work Phone: Start: 06-16-2022 End: 06-16-2022 Patient encounter procedure 06/16/2022 Office Visit Neurology Des[facility]un Rodrigues MD 335 [facility] [address] [address] [facility] Start: 06-13-2022 Hemoglobin A1c measurement A1C [facility] Start: 06-10-2022 End: 06-10-2022 Patient encounter procedure 06/10/2022 Office Visit Endocrinology Erica Gardner PA-C [address] [place] [address] [facility] Start: 05-17-2022 End: 05-17-2022 Patient encounter procedure 05/17/2022 Office Visit Endocrinology David Waters CNP [address] [place] [address] [facility] Start: 05-13-2022 [email or web address], Provider: Quin Li, Status: Pen, Time: 11:45 AM PTFUADULT4, Provider: Quin Li, Status: Pen, Time: 11:45 AM [facility] [address] [place] Work Phone: Start: 05-11-2022 PTRECHECKA, Provider: Lorena Evangelista, Status: Pen, Time: 11:15 AM PTRECHECKA, Provider: Lorena Evangelista, Status: Pen, Time: 11:15 AM [facility] [place] Work Phone: Start: 05-09-2022 PTFUADULT4, Provider: Quin Li, Status: Pen, Time: 12:15 PM PTFUADULT4, Provider: Quin Li, Status: Pen, Time: 12:15 PM [facility] [place] [address] [place] Work Phone: Start: 05-06-2022 PTFUADULT4, Provider: Quin Li, Status: Pen, Time: 2:00 PM PTFUADULT4, Provider: Quin Li, Status: Pen, Time: 2:00 PM [facility] [place] [address] [place] Work Phone: Start: 05-04-2022 PTFUADULT4, Provider: Quin Li, Status: Pen, Time: 2:00 PM PTFUADULT4, Provider: Quin Li, Status: Pen, Time: 2:00 PM [facility] [place] [address] [place] Work Phone: Start: 04-29-2022 PTFUADULT4, Provider: Quin Li, Status: Pen, Time: 2:00 PM PTFUADULT4, Provider: Quin Li, Status: Pen, Time: 2:00 PM [facility] [place] [address] [place] Work Phone: Start: 04-27-2022 Depression screening using PHQ-9 (Patient Health Questionnaire 9) score [facility] Start: 04-25-2022 End: 04-25-2022 Patient encounter procedure 04/25/2022 Office Visit Cardiology Aquiles Herrera MD [address] [address] [facility] Start: 04-25-2022 PTFUADULT4, Provider: Quin Li, Status: Pen, Time: 11:30 AM PTFUADULT4, Provider: Quin Li, Status: Pen, Time: 11:30 AM [facility] [place] [address] [place] Work Phone: Start: 04-22-2022 PTFUADULT4, Provider: Quin Li, Status: Pen, Time: 1:15 PM PTFUADULT4, Provider: Quin Li, Status: Pen, Time: 1:15 PM [facility] 119 [place] Work Phone: Start: 04-06-2022 Microalbumin measurement, urine, quantitative Urine [facility]albumin [facility] Start: 04-06-2022 PTEVALADUL, Provider: Lorena Evangelista, Status: Pen, Time: 9:30 AM PTEVALADUL, Provider: Lorena Evangelista, Status: Pen, Time: 9:30 AM [facility] [place] Work Phone: Start: 03-16-2022 Microalbumin measurement, urine, quantitative Urine Microalbumin [facility] Start: 03-15-2022 PTEVALADUL, Provider: Rayo Herrera, Status: Pen, Time: 11:30 AM PTEVALADUL, Provider: Rayo Herrera, Status: Pen, Time: 11:30 AM [facility] Work Phone: Start: 03-12-2022 Pneumococcal vaccination [facility] Start: 03-12-2022 Pneumococcal Vaccine: 65+ Years (2 - PCV) Pneumococcal Vaccine: 65+ Years (2 - PCV) [facility] Start: 03-12-2022 Pneumococcal Vaccine: 65+ Years (2 of 2 - PCV) Pneumococcal Vaccine: 65+ Years (2 of 2 - PCV) [facility] Start: 03-12-2022 Pneumococcal Vaccine: Age 50+ (2 of 2 - PCV) Pneumococcal Vaccine: Age 50+ (2 of 2 - PCV) [facility] Start: 03-12-2022 Pneumococcal Vaccine: Age 65+ (2 - PCV) Pneumococcal Vaccine: Age 65+ (2 - PCV) [facility] Start: 03-12-2022 Pneumococcal Vaccine: Age 65+ (2 of 2 - PCV) Pneumococcal Vaccine: Age 65+ (2 of 2 - PCV) [facility] Start: 03-12-2022 Pneumococcal Vaccine: Age 65+ (2 of 2 - PCV13) Pneumococcal Vaccine: Age 65+ (2 of 2 - PCV13) [facility] Start: 02-01-2022 Hemoglobin A1c measurement A1C [facility] Start: 01-25-2022 FUV, Provider: Phyllis Mae, Status: Pen, Time: 1:30 PM FUV, Provider: Phyllis Mae, Status: Pen, Time: 1:30 PM [facility] Work Phone: Start: 01-04-2022 Patient encounter procedure MCRANNUAL, Provider: Phyllis Mae, Status: Pen, Time: 1:30 PM [facility] Work Phone: Start: 12-29-2021 COVID-19 Vaccine (3 - Booster for Ryan series) COVID-19 Vaccine (3 - Booster for Ryan series) [facility] Start: 11-03-2021 PTRECHADRANDY, Provider: Lorena Evangelista, Status: Pen, Time: 12:30 PM JUAN PABLOECHDILLAN, Provider: Lorena Evangelista, Status: Pen, Time: 12:30 PM [facility] [place] Work Phone: Start: 11-01-2021 End: 11-01-2021 Patient encounter procedure 11/01/2021 Office Visit Endocrinology Santana Orosco PA-C [address] [place] [address] [facility] Start: 10-28-2021 End: 08-04-2022 Complete blood count with white cell differential, manual CBC and Differential Lab Routine Type 2 diabetes mellitus with stage 3b chronic kidney disease, with long-term current use of insulin (HCC) Expected: 10/28/2021, Expires: 08/04/2022 [facility] Comment on above: Expected: 10/28/2021, Expires: Start: 10-28-2021 End: 08-04-2022 Comprehensive metabolic 2000 panel - Serum or Plasma Comprehensive Metabolic Panel Lab Routine Type 2 diabetes mellitus with stage 3b chronic kidney disease, with long-term current use of insulin (HCC) Expected: 10/28/2021, Expires: 08/04/2022 [facility] Work Phone: Comment on above: Expected: 10/28/2021, Expires: 2 Start: 10-28-2021 Hemoglobin A1c measurement A1C [facility] Start: 10-28-2021 End: 08-04-2022 Hemoglobin A1c/Hemoglobin.total in Blood Hemoglobin A1c Lab Routine Type 2 diabetes mellitus with stage 3b chronic kidney disease, with long-term current use of insulin (HCC) Expected: 10/28/2021, Expires: 08/04/2022 [facility] Comment on above: Expected: 10/28/2021, Expires: 2 Start: 10-28-2021 End: 08-04-2022 Lipid 1996 panel - Serum or Plasma Lipid Panel Lab Routine Type 2 diabetes mellitus with stage 3b chronic kidney disease, with long-term current use of insulin (HCC) Expected: 10/28/2021, Expires: 08/04/2022 [facility] Comment on above: Expected: 10/28/2021, Expires: 2 Start: 10-28-2021 End: 08-03-2022 Microalbumin measurement, urine, quantitative Microalbumin/Creatinine Ratio, UR Random Lab Routine Type 2 diabetes mellitus with stage 3b chronic kidney disease, with long-term current use of insulin (HCC) Expected: 10/28/2021, Expires: 08/03/2022 [facility] Comment on above: Expected: 10/28/2021, Expires: 2 Start: 10-28-2021 End: 08-04-2022 Thyrotropin [Units/volume] in Serum or Plasma TSH Lab Routine Type 2 diabetes mellitus with stage 3b chronic kidney disease, with long-term current use of insulin (HCC) Expected: 10/28/2021, Expires: 08/04/2022 [facility] Comment on above: Expected: 10/28/2021, Expires: 2 Start: 10-28-2021 End: 08-04-2022 Thyroxine (T4) free [Mass/volume] in Serum or Plasma T4, Free Lab Routine Type 2 diabetes mellitus with stage 3b chronic kidney disease, with long-term current use of insulin (HCC) Expected: 10/28/2021, Expires: 08/04/2022 [facility] Comment on above: Expected: 10/28/2021, Expires: Start: 10-26-2021 COVID-19 Vaccine (3 - Booster for Ryan series) COVID-19 Vaccine (3 - Booster for Ryan series) [facility] Start: 10-25-2021 [email or web address], Provider: Bib Payne, Status: Pen, Time: 11:30 AM PTFUADULT4, Provider: Bib Payne, Status: Pen, Time: 11:30 AM [facility] [place] [address] [place] Work Phone: Start: 10-18-2021 PTFUADULT4, Provider: Bib Payne, Status: Pen, Time: 11:30 AM PTFUADULT4, Provider: Bib Payne, Status: Pen, Time: 11:30 AM [facility] [place] [address] [place] Work Phone: Start: 10-15-2021 PTFUADULT4, Provider: Bib Payne, Status: Pen, Time: 1:15 PM PTFUADULT4, Provider: Bib Payne, Status: Pen, Time: 1:15 PM [facility] [place] [address] [place] Work Phone: Start: 10-08-2021 PTFUADULT4, Provider: Bib Payne, Status: Pen, Time: 12:30 PM PTFUADULT4, Provider: Bib Payne, Status: Pen, Time: 12:30 PM [facility] [place] [address] [place] Work Phone: Start: 10-04-2021 FUV, Provider: Phyllis Mae, Status: Pen, Time: 11:30 AM FUV, Provider: Phyllis Mae, Status: Pen, Time: 11:30 AM [facility] [place] [address] [place] Work Phone: Start: 09-29-2021 PTRECHECKA, Provider: Kirstie Bernal, Status: Pen, Time: 11:15 AM PTRECHECKA, Provider: Kirstie Bernal, Status: Pen, Time: 11:15 AM [facility] 119 [place] Work Phone: Start: 09-27-2021 End: 09-27-2021 Patient encounter procedure 09/27/2021 Office Visit Pulmonology Tosha Prescott, TELEPHONE MECHANIC [address] [place] [address] [facility] Start: 09-24-2021 PTFUADULT4, Provider: Bib Payne, Status: Pen, Time: 12:30 PM PTFUADULT4, Provider: Bib Payne, Status: Pen, Time: 12:30 PM [facility] [place] Work Phone: Start: 09-22-2021 PTFUADULT4, Provider: Bib Payne, Status: Pen, Time: 12:30 PM PTFUADULT4, Provider: Bib Payne, Status: Pen, Time: 12:30 PM [facility] [place] Work Phone: Start: 09-20-2021 PTFUADULT4, Provider: Bib Payne, Status: Pen, Time: 12:15 PM PTFUADULT4, Provider: Bib Payne, Status: Pen, Time: 12:15 PM [facility] [place] Work Phone: Start: 09-17-2021 PTFUADULT4, Provider: Bib Payne, Status: Pen, Time: 12:30 PM PTFUADULT4, Provider: Bib Payne, Status: Pen, Time: 12:30 PM [facility] [place] Work Phone: Start: 09-16-2021 Hemoglobin A1c measurement A1C [facility] Start: 09-15-2021 PTFUADULT4, Provider: Bib Payne, Status: Pen, Time: 1:15 PM PTFUADULT4, Provider: Bib Payne, Status: Pen, Time: 1:15 PM [facility] [place] Work Phone: Start: 09-14-2021 FUV, Provider: Phyllis Mae, Status: Pen, Time: 1:15 PM FUV, Provider: Phyllis Mae, Status: Pen, Time: 1:15 PM [facility] Work Phone: Start: 09-13-2021 PTFUADULT4, Provider: Bib Payne, Status: Pen, Time: 12:15 PM PTFUADULT4, Provider: Bib Payne, Status: Pen, Time: 12:15 PM [facility] [place] Work Phone: Start: 09-10-2021 PTFUADULT4, Provider: Bib Payne, Status: Pen, Time: 12:30 PM PTFUADULT4, Provider: Bib Payne, Status: Pen, Time: 12:30 PM [facility] [place] Work Phone: Start: 09-08-2021 PTFUADULT4, Provider: Bib Payne, Status: Pen, Time: 1:15 PM PTFUADULT4, Provider: Bib Payne, Status: Pen, Time: 1:15 PM [facility] [place] Work Phone: Start: 09-06-2021 PTFUADULT4, Provider: Bib Payne, Status: Pen, Time: 12:15 PM PTFUADULT4, Provider: Bib Payne, Status: Pen, Time: 12:15 PM [facility] [place] Work Phone: Start: 09-03-2021 PTFUADULT4, Provider: Bib Payne, Status: Pen, Time: 12:30 PM PTFUADULT4, Provider: Bib Payne, Status: Pen, Time: 12:30 PM [facility] [place] Work Phone: Start: 09-01-2021 PTFUADULT4, Provider: Bib Payne, Status: Pen, Time: 12:30 PM PTFUADULT4, Provider: Bib Payne, Status: Pen, Time: 12:30 PM [facility] [place] Work Phone: Start: 08-30-2021 PTFUADULT4, Provider: Bib Payne, Status: Pen, Time: 12:15 PM PTFUADULT4, Provider: Bib Payne, Status: Pen, Time: 12:15 PM [facility] [place] Work Phone: Start: 08-27-2021 PTFUADULT4, Provider: Bib Panye, Status: Pen, Time: 10:45 AM PTFUADULT4, Provider: Bib Payne, Status: Pen, Time: 10:45 AM [facility] [place] Work Phone: Start: 08-25-2021 PTFUADULT4, Provider: Bib Payne, Status: Pen, Time: 12:30 PM PTFUADULT4, Provider: Bib Payne, Status: Pen, Time: 12:30 PM [facility] [place] Work Phone: Start: 08-23-2021 PTFUADULT4, Provider: Bib Payne, Status: Pen, Time: 12:00 PM PTFUADULT4, Provider: Bib Payne, Status: Pen, Time: 12:00 PM [facility] [place] Work Phone: Start: 08-20-2021 PTFUADULT4, Provider: Bib Payne, Status: Pen, Time: 10:00 AM PTFUADULT4, Provider: Bib Payne, Status: Pen, Time: 10:00 AM [facility] [place] Work Phone: Start: 08-17-2021 EPV, Provider: Phyllis Mae, Status: Pen, Time: 12:30 PM EPV, Provider: Phyllis Mae, Status: Pen, Time: 12:30 PM [facility] [facility] Work Phone: Start: 08-16-2021 PTFUADULT4, Provider: Bib Payne, Status: Pen, Time: 12:15 PM PTFUADULT4, Provider: Bib Payne, Status: Pen, Time: 12:15 PM [facility] Work Phone: Start: 08-04-2021 PTEVALADUL, Provider: Arturo Galvez, Status: Pen, Time: 1:15 PM PTEVALADUL, Provider: Arturo Galvez, Status: Pen, Time: 1:15 PM [facility] [place] [facility] Work Phone: Start: 08-03-2021 Diabetic foot examination Foot Exam [facility] Start: 07-28-2021 Albumin DL <= 20 mg/L (U) [Mass/Vol] Urine Microalbumin [facility] Start: 07-28-2021 Microalbumin measurement, urine, quantitative Urine Microalbumin [facility] Start: 07-14-2021 HbA1c (Bld) [Mass fraction] A1C [facility] Start: 07-14-2021 Hemoglobin A1c measurement A1C [facility] Start: 07-12-2021 FUV, Provider: Phyllis Mae, Status: Giacomo, Time: 11:30 AM FUV, Provider: Phyllis Mae, Status: Giacomo, Time: 11:30 AM [facility] Work Phone: Start: 07-06-2021 FUV, Provider: Phyllis Mae, Status: Giacomo, Time: 2:00 PM FUV, Provider: Phyllis Mae, Status: Giacomo, Time: 2:00 PM [facility] [place] [facility] Work Phone: Start: 07-01-2021 End: 07-01-2021 Follow-up encounter 07/01/2021 Follow-Up Sports Medicine Dylon Galindo MD [address] [place] [id number] [facility] Start: 06-30-2021 Influenza vaccination Sequential Influenza Vaccine (#1) [facility] Start: 06-24-2021 NPV, Provider: Anya [place], Status: Pen, Time: 11:00 AM NPV, Provider: Anya [place], Status: Pen, Time: 11:00 AM [facility] Work Phone: Start: 06-17-2021 FUV, Provider: Jin Robbins II, Status: Pen, Time: 11:00 AM FUV, Provider: Jin Robbins II, Status: Pen, Time: 11:00 AM [facility] Work Phone: Start: 05-25-2021 Low dose computed tomography of chest without contrast Low-dose CT Lung Cancer Screen [facility] Start: 05-25-2021 Screening for malignant neoplasm of lung Low-dose CT Lung Cancer Screen [facility] Start: 05-13-2021 End: 05-13-2021 Follow-up encounter 05/13/2021 Follow-Up Sports Medicine Dylon Galindo [place], [place] [id number] [facility] Start: 04-19-2021 NPV, Provider: Jin Robbins II, Status: Pen, Time: 2:45 PM NPV, Provider: Jin Robbins II, Status: Pen, Time: 2:45 PM [facility] Work Phone: Start: 04-19-2021 HbA1c (Bld) [Mass fraction] A1C [facility] Start: 04-14-2021 Screening for malignant neoplasm of lung Low-dose CT Lung Cancer Screen [facility] Start: 03-24-2021 End: 03-24-2021 Patient encounter procedure 03/24/2021 Office Visit Sports Medicine Dylon Galindo MD [address] [place] [address] [phone] [facility] Start: 02-02-2021 End: 02-02-2021 Office Visit 02/02/2021 Office Visit Endocrinology Erica Gardner PA-C [address] [place] [address] [phone] [facility] Start: 01-29-2021 COVID-19 Vaccine (Ryan SARS-CoV-2 Vaccination) COVID-19 Vaccine (Ryan SARS-CoV-2 Vaccination) [facility] Start: 01-25-2021 HbA1c (Bld) [Mass fraction] A1C [facility] Start: 12-27-2020 Diabetic foot examination Foot Exam [facility] Start: 12-11-2020 Albumin DL <= 20 mg/L (U) [Mass/Vol] URINE MICROALBUMIN [facility] Start: 12-08-2020 End: 12-08-2020 Appointment [facility] Start: 11-03-2020 End: 08-03-2021 Comprehensive metabolic 2000 panel Comprehensive Metabolic Panel Lab Routine Inadequately controlled diabetes mellitus (HCC) Expected: 11/03/2020 (Approximate), Expires: 08/03/2021 [facility] Comment on above: Expected: 11/03/2020 (Approximate), Expi res: 08/03/2021 Start: 11-03-2020 End: 08-03-2021 HbA1c (Bld) [Mass fraction] Hemoglobin A1c Lab Routine Inadequately controlled diabetes mellitus (HCC) Expected: 11/03/2020 (Approximate), Expires: 08/03/2021 [facility] Comment on above: Expected: 11/03/2020 (Approximate), Expi res: 08/03/2021 Start: 11-03-2020 End: 08-03-2021 Lipid 1996 panel Lipid Panel Lab Routine Inadequately controlled diabetes mellitus (HCC) Dyslipidemia Expected: 11/03/2020 (Approximate), Expires: 08/03/2021 [facility] Comment on above: Expected: 11/03/2020 (Approximate), Expi res: 08/03/2021 Start: 11-03-2020 End: 11-03-2020 Office Visit 11/03/2020 Office Visit Endocrinology David Waters, RAQUEL [address] [address] [phone] [facility] Start: 10-01-2020 HbA1c (Bld) [Mass fraction] A1C [facility] Start: 07-03-2020 End: 07-03-2020 Office Visit 07/03/2020 Office Visit Endocrinology Erica Gardner PA-C [address] [address] [phone] [facility] Start: 06-30-2020 Influenza vaccination given [facility] Start: 06-10-2020 HbA1c (Bld) [Mass fraction] A1C [facility] Start: 05-25-2020 End: 05-25-2020 Appointment 05/25/2020 Appointment Radiology Lola Cruz MD [address] [place] [address] [phone] [facility] [place] Start: 05-19-2020 Xray Chest 2 View PA + Lateral [facility] Work Phone: Start: 04-20-2020 End: 04-20-2020 Office Visit 04/20/2020 Office Visit Cardiology Aquiles Herrera MD [address] [address] [phone] [facility] Start: 03-31-2020 End: 03-31-2020 Office Visit 03/31/2020 Office Visit Endocrinology David Waters, TELEPHONE MECHANIC [address] [address] [phone] [facility] Start: 02-26-2020 End: 02-26-2020 Office Visit 02/26/2020 Office Visit Cardiology Aquiles Herrera MD [address] [address] [phone] [facility] Start: 01-23-2020 End: 01-23-2020 Low dose computed tomography of thorax CT Lung Cancer Screening Routine Cigarette Smoker Screening for malignant neoplasm of respiratory organ Expected: 01/23/2020, Expires: 01/23/2020 [facility] Comment on above: Expected: 01/23/2020, Expires: 0 Start: 01-23-2020 End: 01-23-2020 Office Visit 01/23/2020 Office Visit Pulmonology Lola Cruz MD [address] [address] [phone] [facility] Start: 01-22-2020 Screening for malignant neoplasm of lung Low-dose CT Lung Cancer Screen [facility] Start: 01-20-2020 End: 01-20-2020 Appointment 01/20/2020 Appointment Radiology Lola Cruz MD [address] [place] [address] [phone] [facility] [place] Start: 12-27-2019 End: 12-27-2019 Office Visit 12/27/2019 Office Visit Endocrinology David Waters, TELEPHONE MECHANIC [address] [place] [address] [phone] [facility] Start: 12-04-2019 End: 12-04-2019 Appointment [facility] Start: 12-03-2019 End: 12-03-2019 Appointment [facility] Start: 11-12-2019 Prostate specific antigen measurement PROSTATE CANCER SCREENING DISCUSSION [facility] Work Phone: Start: 07-25-2019 End: 07-25-2019 Office Visit 07/25/2019 Office Visit Pulmonology Lola Cruz MD [address] [place] [address] [phone] [facility] Start: 07-02-2019 Albumin DL <= 20 mg/L (U) [Mass/Vol] URINE MICROALBUMIN [facility] Start: 06-30-2019 Influenza vaccination given SEQUENTIAL INFLUENZA VACCINE (#1) [facility] Start: 05-27-2019 End: 01-26-2020 Complete blood count with white cell differential, manual CBC and Differential Routine Anemia, unspecified type Monoclonal gammopathy Expected: 05/27/2019 (Approximate), Expires: 01/26/2020 [facility] Comment on above: Expected: 05/27/2019 (Approximate), Expi res: 01/26/2020 Start: 05-27-2019 End: 01-25-2020 Reticulocytes panel - Blood Reticulocyte Routine Anemia, unspecified type Monoclonal gammopathy Expected: 05/27/2019 (Approximate), Expires: 01/25/2020 [facility] Comment on above: Expected: 05/27/2019 (Approximate), Expi res: 01/25/2020 Start: 05-27-2019 End: 05-27-2019 Office Visit 05/27/2019 Office Visit Oncology Guillermo Dewitt MD [address] [place] [address] [phone] [facility] Start: 05-12-2019 Hemoglobin A1c/Hemoglobin.total mass fraction (Bld) [facility] Start: 04-25-2019 Albumin DL <= 20 mg/L mass conc (U) URINE MICROALBUMIN [facility] Start: 01-26-2019 End: 09-29-2019 Cobalamin (Vitamin B12) mass conc Vitamin B12 Routine Anemia, unspecified type Monoclonal gammopathy Fatigue, unspecified type Expected: 01/26/2019 (Approximate), Expires: 09/29/2019 [facility] Comment on above: Expected: 01/26/2019 (Approximate), Expi res: 09/29/2019 Start: 01-26-2019 End: 09-29-2019 Complete blood count with white cell differential, manual CBC and Differential Routine Anemia, unspecified type Monoclonal gammopathy Fatigue, unspecified type Expected: 01/26/2019 (Approximate), Expires: 09/29/2019 [facility] Comment on above: Expected: 01/26/2019 (Approximate), Expi res: 09/29/2019 Start: 01-26-2019 End: 09-28-2019 Reticulocytes panel - Blood Reticulocyte Routine Anemia, unspecified type Monoclonal gammopathy Fatigue, unspecified type Expected: 01/26/2019 (Approximate), Expires: 09/28/2019 [facility] Comment on above: Expected: 01/26/2019 (Approximate), Expi res: 09/28/2019 Start: 01-26-2019 End: 09-29-2019 Thyrotropin Qn TSH Routine Anemia, unspecif ied type Monoclonal gammopathy Fatigue, unspecified type Expected: 01/26/2019 (Approximate), Expires: 09/29/2019 [facility] Comment on above: Expected: 01/26/2019 (Approximate), Expi res: 09/29/2019 Start: 01-25-2019 End: 01-25-2019 Ambulatory 01/25/2019 Office Visit Oncology Guillermo Dewitt MD [address] [place] [address] [facility] Start: 01-22-2019 End: 01-22-2019 Ambulatory 01/22/2019 Office Visit Pulmonology Lola Cruz MD [address] [place] [address] [phone] [facility] Start: 01-21-2019 Hospital Encounter 01/21/2019 [facility] Lola Belcher MD [address] [place] [address] [phone] [facility] Start: 01-14-2019 Ambulatory 01/14/2019 [facility] Lola Belcher MD [address] [place] [address] [phone] [facility] Start: 11-28-2018 End: 11-28-2018 Office Visit 11/28/2018 Office Visit Cardiology Aquiles Herrera MD [address] [address] [phone] Cameron Munguia III, DO [address] [place] [address] [phone] [facility] Start: 11-26-2018 End: 11-26-2018 Appointment 11/26/2018 Appointment Cardiology Aquiles Herrera MD [address] [address] [phone] [facility] Start: 10-18-2018 End: 10-18-2018 Ambulatory 10/18/2018 Office Visit Cardiology Aquiles Herrera MD [address] [address] [phone] [facility] Start: 09-28-2018 End: 09-28-2018 Ambulatory 09/28/2018 Office Visit Oncology Guillermo Dewitt MD [address] [place] [address] [facility] Start: 07-25-2018 End: 07-25-2018 Ambulatory 07/25/2018 Office Visit Pulmonology Lola Cruz MD [address] [place] [address] [place] [address] [phone] [facility] Start: 07-12-2018 End: 07-12-2018 Ambulatory 07/12/2018 Office Visit Oncology Guillermo Dewitt MD [address] [facility] [place] [address] [facility] Start: 06-30-2018 Influenza vaccination SEQUENTIAL INFLUENZA VACCINE (#1) [facility] Start: 05-29-2018 End: 05-29-2018 Ambulatory [facility] Start: 05-10-2018 End: 05-10-2018 Ambulatory 05/10/2018 Office Visit Oncology Guillermo Dewitt MD [address] [facility] [place] [address] [facility] Start: 05-06-2018 End: 01-05-2019 CBC and Differential CBC and Differential Routine Anemia, unspecified type Monoclonal gammopathy Expected: 05/06/2018 (Approximate), Expires: 01/05/2019 [facility] Start: 05-06-2018 End: 01-04-2019 Ferritin Ferritin Routine Anemia, unspecified type Monoclonal gammopathy Expected: 05/06/2018 (Approximate), Expires: 01/04/2019 [facility] Start: 05-06-2018 End: 01-04-2019 Reticulocytes panel - Blood Reticulocyte Routine Anemia, unspecified type Monoclonal gammopathy Expected: 05/06/2018 (Approximate), Expires: 01/04/2019 [facility] Start: 01-17-2018 Ambulatory [facility] Start: 01-04-2018 Ambulatory 01/04/2018 Office Visit Oncology Guillermo Dewitt MD [address] [place] [address] [facility] Start: 12-08-2017 End: 09-08-2018 CBC and Differential CBC and Differential Routine Monoclonal gammopathy Abdominal pain, unspecified abdominal location Expected: 12/08/2017 (Approximate), Expires: 09/08/2018 [facility] Work Phone: Start: 12-08-2017 End: 09-07-2018 Immunofixation, Serum Immunofixation, Serum Routin e Monoclonal gammopathy Abdominal pain, unspecified abdominal location Expected: 12/08/2017 (Approximate), Expires: 09/07/2018 [facility] Work Phone: Start: 12-08-2017 End: 09-07-2018 Immunoglobulin Free Light Chains,Blood Immunoglobulin Free Light Chains,Blood Routine Monoclonal gammopathy Abdominal pain, unspecified abdominal location Expected: 12/08/2017 (Approximate), Expires: 09/07/2018 [facility] Work Phone: Start: 12-08-2017 End: 09-07-2018 Protein Electrophoresis, Blood Protein Electrophoresis, Blood Routine Monoclonal gammopathy Abdominal pain, unspecified abdominal location Expected: 12/08/2017 (Approximate), Expires: 09/07/2018 [facility] Work Phone: Start: 12-08-2017 End: 09-07-2018 Reticulocytes panel - Blood Reticulocyte Routine Monoclonal gammopathy Abdominal pain, unspecified abdominal location Expected: 12/08/2017 (Approximate), Expires: 09/07/2018 [facility] Work Phone: Start: 12-07-2017 Ambulatory 12/07/2017 Office Visit Oncology Guillermo Dewitt MD [address] [place] [address] [facility] Start: 10-16-2017 Ambulatory 10/16/2017 Office Visit Cardiology qAuiles Herrera MD [address] [address] [facility] Start: 09-07-2017 Ambulatory 09/07/2017 Office Visit Oncology Guillermo Dewitt MD [address] [facility] [place] [address] [facility] Start: 09-06-2017 Ambulatory 09/06/2017 [facility] Lola Belcher MD [address] [place] [address] [place], [place] [address] [phone] [facility] Start: 08-17-2017 End: 08-18-2018 Cobalamins (Vitamin B12) Vitamin B12 Routine Anemia, unspecified type Monoclonal gammopathy Expected: 08/17/2017, Expires: 08/18/2018 [facility] Work Phone: Start: 08-17-2017 End: 08-18-2018 Comprehensive metabolic panel [AGGREGATE] Comprehensive Metabolic Panel Routine Anemia, unspecified type Monoclonal gammopathy Expected: 08/17/2017, Expires: 08/18/2018 [facility] Work Phone: Start: 08-17-2017 End: 08-17-2018 Ferritin Ferritin Routine Anemia, unspecified type Monoclonal gammopathy Expected: 08/17/2017, Expires: 08/17/2018 [facility] Work Phone: Start: 08-17-2017 End: 08-18-2018 Folate Folate Routine Anemia, unspecified type Monoclonal gammopathy Expected: 08/17/2017, Expires: 08/18/2018 [facility] Work Phone: Start: 08-17-2017 End: 08-17-2018 Hemoglobin presence in stool Occult Blood Stool Routine Anemia, unspecified type Monoclonal gammopathy Expected: 08/17/2017, Expires: 08/17/2018 [facility] Work Phone: Start: 08-17-2017 End: 08-17-2018 Immunofixation, Serum Immunofixation, Serum Routin e Anemia, unspecified type Monoclonal gammopathy Expected: 08/17/2017, Expires: 08/17/2018 [facility] Work Phone: Start: 08-17-2017 End: 08-17-2018 Immunoglobulin Free Light Chains,Blood Immunoglobulin Free Light Chains,Blood Routine Anemia, unspecified type Monoclonal gammopathy Expected: 08/17/2017, Expires: 08/17/2018 [facility] Work Phone: Start: 08-17-2017 End: 08-17-2018 Protein Electrophoresis, Blood Protein Electrophoresis, Blood Routine Anemia, unspecified type Monoclonal gammopathy Expected: 08/17/2017, Expires: 08/17/2018 [facility] Work Phone: Start: 08-17-2017 End: 08-18-2018 Reticulocytes panel - Blood Reticulocyte Routine Anemia, unspecified type Monoclonal gammopathy Expected: 08/17/2017, Expires: 08/18/2018 [facility] Work Phone: Start: 08-17-2017 End: 08-17-2018 XR Bone Survey Complete XR Bone Survey Complete Routine Anemia, unspecified type Monoclonal gammopathy Expected: 08/17/2017, Expires: 08/17/2018 [facility] Work Phone: Start: 06-30-2017 Influenza vaccination SEQUENTIAL INFLUENZA VACCINE (#1) [facility] Work Phone: Start: 2014 Abdominal aortic aneurysm screening Abdominal Aortic Aneurysm (AAA) Screening [facility] Start: 2014 Fall risk assessment [facility] Start: 2014 Pneumococcal vaccination [facility] Work Phone: Start: 2014 Ultrasound scan of abdominal aorta ABDOMINAL AORTIC ULTRASOUND [facility] Work Phone: Start: 2009 Hepatitis B Vaccines (1 of 3 - Risk 3-dose series) Hepatitis B Vaccines (1 of 3 - Risk 3-dose series) [facility] Start: 2009 RSV patients and/or patients aged 60+ years (1 - 1-dose 60+ series) RSV patients and/or patients aged 60+ years (1 - 1-dose 60+ series) [facility] Start: 2009 Zoster vacc, sc ZOSTER VACCINE [facility] Work Phone: Start: 1999 Administration of herpes zoster vaccine ZOSTER VACCINES (1 of 2) [facility] Start: 1999 Protein mass conc COLON CANCER SCREENING DISCUSSION [facility] Work Phone: Start: 1999 Screening for malignant neoplasm of colon [facility] Start: 1999 ZOSTER VACCINES (1 of 2) ZOSTER VACCINES (1 of 2) [facility] Start: 1968 Administration of herpes zoster vaccine Zoster Vaccines (1 of 2) [facility] Start: 1968 Hepatitis A Vaccines (1 of 2 - Risk 2-dose series) Hepatitis A Vaccines (1 of 2 - Risk 2-dose series) [facility] Start: 1968 Third diphtheria, tetanus and acellular pertussis (DTaP) vaccination TDAP (ADULT) [facility] Work Phone: Start: 1968 Urine screening for protein Diabetes: Urine Protein Screening [facility] Start: 1968 Zoster Vaccines (1 of 2) Zoster Vaccines (1 of 2) [facility] Start: 1967 Hepatitis C antibody, confirmatory test Hepatitis C Screening [facility] Start: 1967 Hepatitis C screening Hepatitis C Screening [facility] Start: 1967 Tetanus vaccination TETANUS [facility] Work Phone: Start: 1965 COVID-19 Vaccine (1 of 2) COVID-19 Vaccine (1 of 2) [facility] Start: 1961 Adolescent depression screening assessment Depression Screening (PHQ9) [facility] Start: 1961 Depression screening using PHQ-9 (Patient Health Questionnaire 9) score Depression Screening (PHQ9) [facility] Start: 1959 Glaucoma screening [facility] Start: 1959 End: 1959 Diabetic foot examination (regime/therapy) [facility] Start: 1959 End: 1959 Ophthalmic examination and evaluation [facility] Start: 1959 End: 1959 Urine, microalbumin URINE MICROALBUMIN [facility] Work Phone: Start: 1955 Pneumococcal Vaccine: Age 65+ (1 of 4 - PCV13) Pneumococcal Vaccine: Age 65+ (1 of 4 - PCV13) [facility] Start: 1952 History and physical examination, annual for health maintenance Wellness Visit [facility] Start: 1950 Hepatitis A Vaccines (1 of 2 - Risk 2-dose series) Hepatitis A Vaccines (1 of 2 - Risk 2-dose series) [facility] Start: 1949 Colonoscopy COLONOSCOPY [facility] Start: 1949 Depression screening using PHQ-9 (Patient Health Questionnaire 9) score DEPRESSION SCREENING (PHQ9) [facility] Start: 1949 Fall risk assessment Falls Risk Assessment [facility] Start: 1949 Hemoglobin A1c measurement Diabetes: Hemoglobin A1C [facility] Start: 1949 Hepatitis C antibody, confirmatory test [facility] Start: 1949 Medicare Annual Wellness Visit Medicare Annual Wellness Visit (AWV) [facility] Start: 1949 Prostate specific antigen measurement PSA Level [facility] Start: 1949 Protein mass conc COLONOSCOPY [facility] Start: 1949 Screening for malignant neoplasm of colon [facility] Start: 1949 Screening for malignant neoplasm of lung Low-dose CT Lung Cancer Screen [facility] Start: 1949 US scan of abdominal aorta Abdominal Aortic Ultrasound [facility] Start: 1949 End: 1949 HbA1c [facility] Work Phone: Start: 1949 HEPATITIS C SCREENING HEPATITIS C SCREENING [facility] Work Phone: Start: 1949 Low-dose CT Lung Cancer Screen Low-dose CT Lung Cancer Screen [facility] Work Phone: Start: 1949 Screening colonoscopy COLONOSCOPY [facility] Work Phone: Start: 1949 End: 1949 Tetanus vaccination [facility] Work Phone: Aerobic microbial culture Wound Aerobic Culture Microbiology Routine Ingrown toenail Paronychia of great toe PVD (peripheral vascular disease) (HCC) Tobacco use Xerosis of skin Diabetic foot (HCC) Ordered: 05/14/2024 [facility] Work Phone: Comment on above: Ordered: 05/14/2024 End: 02-01-2021 Carotid artery doppler assessment Carotid Duplex Vascular Ultrasound Routine Left carotid artery stenosis History of carotid endarterectomy 1 Occurrences starting 12/04/2019 until 02/01/2021 [facility] Comment on above: 1 Occurrences starting 12/04/2019 until 02/01/2021 End: 01-27-2020 Carotid artery doppler assessment Carotid Duplex Routine Stenosis of left carotid artery History of right-sided carotid endarterectomy 1 Occurrences starting 11/28/2018 until 01/27/2020 [facility] Comment on above: 1 Occurrences starting 11/28/2018 until 01/27/2020 End: 12-27-2020 Complete blood count with white cell differential, manual CBC and Differential Lab Routine IDDM (insulin dependent diabetes mellitus) (HCC) 1 Occurrences starting 12/27/2019 until 12/27/2020 [facility] Comment on above: 1 Occurrences starting 12/27/2019 until 12/27/2020 End: 05-08-2025 Complete blood count with white cell differential, manual CBC and Differential Lab Routine Type 2 diabetes mellitus with stage 3b chronic kidney disease, with long-term current use of insulin (HCC) 1 Occurrences starting 05/07/2024 until 05/08/2025 [facility] Work Phone: Comment on above: 1 Occurrences starting 05/07/2024 until 05/08/2025 End: 12-27-2020 Comprehensive metabolic 2000 panel Comprehensive Metabolic Panel Lab Routine IDDM (insulin dependent diabetes mellitus) (HCC) 1 Occurrences starting 12/27/2019 until 12/27/2020 [facility] Comment on above: 1 Occurrences starting 12/27/2019 until 12/27/2020 End: 01-10-2023 Comprehensive metabolic 2000 panel - Serum or Plasma Comprehensive Metabolic Panel Lab Routine Type 2 diabetes mellitus with stage 3b chronic kidney disease, with long-term current use of insulin ([facility]) 1 Occurrences starting 01/10/2022 until 01/10/2023 [facility] Work Phone: Comment on above: 1 Occurrences starting 01/10/2022 until 01/10/2023 End: 05-08-2025 Comprehensive metabolic 2000 panel - Serum or Plasma Comprehensive Metabolic Panel Lab Routine Type 2 diabetes mellitus with stage 3b chronic kidney disease, with long-term current use of insulin (HCC) 1 Occurrences starting 05/07/2024 until 05/08/2025 [facility] Comment on above: 1 Occurrences starting 05/07/2024 until 05/08/2025 Doppler ultrasonography of artery of lower limb Segmental Doppler Lower Extremity Arterial Vascular Ultrasound Routine Diabetic foot ([facility]) PVD (peripheral vascular disease) ([facility]) Type 2 diabetes mellitus with stage 3b chronic kidney disease, with long-term current use of insulin ([facility]) Claudication of lower extremity ([facility]) Tobacco use Xerosis of skin Onychodystrophy Ordered: 12/19/2023 [facility] Work Phone: Comment on above: Ordered: 12/19/2023 End: 06-03-2023 Echocardiography Echocardiogram complete Echocardiography Routine GREEN (dyspnea on exertion) 1 Occurrences starting 06/02/2022 until 06/03/2023 [facility] Work Phone: Comment on above: 1 Occurrences starting 06/02/2022 until 06/03/2023 End: 12-27-2020 Free T4 [Mass/Vol] T4, Free Lab Routine IDDM (insulin dependent diabetes mellitus) ([facility]) 1 Occurrences starting 12/27/2019 until 12/27/2020 [facility] Comment on above: 1 Occurrences starting 12/27/2019 until 12/27/2020 H/O: surgery History of hand surgery [facility] End: 12-27-2020 HbA1c (Bld) [Mass fraction] Hemoglobin A1c Lab Routine IDDM (insulin dependent diabetes mellitus) ([facility]) 1 Occurrences starting 12/27/2019 until 12/27/2020 [facility] Comment on above: 1 Occurrences starting 12/27/2019 until 12/27/2020 End: 01-10-2023 Hemoglobin A1c/Hemoglobin.total in Blood Hemoglobin A1c Lab Routine Type 2 diabetes mellitus with stage 3b chronic kidney disease, with long-term current use of insulin ([facility]) 1 Occurrences starting 01/10/2022 until 01/10/2023 [facility] Comment on above: 1 Occurrences starting 01/10/2022 until 01/10/2023 End: 05-08-2025 Hemoglobin A1c/Hemoglobin.total in Blood Hemoglobin A1c Lab Routine Type 2 diabetes mellitus with stage 3b chronic kidney disease, with long-term current use of insulin ([facility]) 1 Occurrences starting 05/07/2024 until 05/08/2025 [facility] Comment on above: 1 Occurrences starting 05/07/2024 until 05/08/2025 History of cardiovascular surgery History of endarterectomy [facility] History of colonoscopy History of colonoscopy [facility] History of repair of musculotendinous cuff of shoulder History of repair of rotator cuff [facility] End: 06-10-2021 Incentive spirometry Incentive spirometry Respiratory Care Routine Closed fracture of multiple ribs of left side, initial encounter 1 Occurrences starting 06/10/2020 until 06/10/2021 [facility] Comment on above: 1 Occurrences starting 06/10/2020 until 06/10/2021 End: 12-27-2020 Lipid 1996 panel Lipid Panel Lab Routine IDDM (insulin dependent diabetes mellitus) (HCC) 1 Occurrences starting 12/27/2019 until 12/27/2020 [facility] Comment on above: 1 Occurrences starting 12/27/2019 until 12/27/2020 Low dose computed tomography of thorax CT Lung Cancer Screening Imaging Routine Screening for malignant neoplasm of respiratory organ Cigarette Smoker 05/25/2020 12:53 PM EDT [facility] End: 01-29-2020 Measurement of segmental blood pressure of artery of lower limb using doppler ultrasonography Segmental Doppler Lower Extremity Arterial W Exercise Routine Stenosis of left iliac artery (HCC) 1 Occurrences starting 11/28/2018 until 01/29/2020 [facility] Comment on above: 1 Occurrences starting 11/28/2018 until 01/29/2020 End: 04-05-2024 NM Brain Datscan SPECT CT Single Area Single Day NM Brain Datscan SPECT CT Single Area Single Day Imaging Routine 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HCC) 1 Occurrences starting 04/05/2023 until 04/05/2024 [facility] Work Phone: Comment on above: 1 Occurrences starting 04/05/2023 until 04/05/2024 Past history of procedure History of esophagogastroduodenoscopy (EGD) [facility] Patient Education ED Ankle Fracture [facility] Work Phone: [facility] Work Phone: End: 09-09-2025 SPECT Heart perfusion NM Myocardial Perfusion Multiple SPECT Imaging Routine Chest pain, unspecified type History of CVA (cerebrovascular accident) 1 Occurrences starting 09/09/2024 until 09/09/2025 [facility] Work Phone: Comment on above: 1 Occurrences starting 09/09/2024 until 09/09/2025 Standard chest X-ray XR Chest AP /PA and LAT Imaging APOLINAR 05/27/2019 11:50 AM EDT [facility] End: 05-08-2025 Thyrotropin [Units/volume] in Serum or Plasma TSH Lab Routine Type 2 diabetes mellitus with stage 3b chronic kidney disease, with long-term current use of insulin (HCC) 1 Occurrences starting 05/07/2024 until 05/08/2025 [facility] Comment on above: 1 Occurrences starting 05/07/2024 until 05/08/2025 End: 05-08-2025 Thyroxine (T4) free [Mass/volume] in Serum or Plasma T4, Free Lab Routine Type 2 diabetes mellitus with stage 3b chronic kidney disease, with long-term current use of insulin (HCC) 1 Occurrences starting 05/07/2024 until 05/08/2025 [facility] Comment on above: 1 Occurrences starting 05/07/2024 until 05/08/2025 End: 12-27-2020 TSH Qn TSH Lab Routine IDDM (insuli n dependent diabetes mellitus) ([facility]) 1 Occurrences starting 12/27/2019 until 12/27/2020 [facility] Comment on above: 1 Occurrences starting 12/27/2019 until 12/27/2020 Urinalysis Urinalysis Routi ne Anemia, unspecified type Monoclonal gammopathy Ordered: 01/04/2018 [facility] End: 04-14-2020 US ED Fast Scan US ED Fast Scan Imaging STAT One time imaging One time imaging for 1 Occurrences starting 04/14/2020 until 04/14/2020 [facility] Comment on above: One time imaging One time imaging for 1 Occurrences starting 04/14/2020 until 04/14/2020 US ED Fast Scan US ED Fast Scan Imaging STAT 04/14/2020 1:16 PM EDT [facility] NEGATED: Highlighted row has been ruled out! Planned Goals not documented -[facility] Work Phone: Immunizations Immunization Date Immunization Notes Care Provider [facility] 12-05-2024 influenza, high dose seasonal, preservative-free Phyllis Mae MD Work Phone: [facility] Work Phone: 02-27-2024 zoster vaccine-recombinant adjuvanted (Shingrix, PF,) 50 mcg/0.5 mL vaccine Phyllis Mae MD Work Phone: [facility] Work Phone: 02-27-2024 pneumoc 20-chris conj- dip cr,PF, (Prevnar 20, PF,) 0.5 mL vaccine Phyllis Mae MD Work Phone: [facility] Work Phone: 02-27-2024 respiratory syncytia l virus, RSV, vaccine, adjuvanted, age 60y+ (Arexvy, PF,) 120 mcg/0.5 mL suspension for reconstitution Phyllis Mae MD Work Phone: [facility] Work Phone: 08-22-2023 Flu vaccine, quadrivalent, high-dose, preservative free, age 65y+ (FLUZONE) Phyllis Mae MD Work Phone: [facility] Work Phone: 08-22-2023 pneumoc 20-chris conj- dip cr,PF, (Prevnar 20, PF,) 0.5 mL vaccine Phyllis Mae MD Work Phone: [facility] Work Phone: 08-22-2023 influenza virus vacc ine, unspecified formulation David Waters [facility] Work Phone: [facility] 09-20-2022 Fluzone High-Dose Quadrivalent 0.7 ML Intramuscular Suspension Prefilled Syringe; 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: [Fluzone High-Dose Quadrivalent 0.7 ML Intramuscular Suspension Prefilled Syringe] Phyllis Mae Work Phone: [facility] Work Phone: Comment on above: Series: 09-20-2022 influenza, high dose seasonal, preservative-free Phyllis Mae MD Work Phone: [facility] Work Phone: 08-31-2021 Ryan COVID-19 Vac cine 0.5 ML Intramuscular Suspension Phyllis Mae Work Phone: [facility] Work Phone: Comment on above: Series: 08-31-2021 Moderna COVID-19 Vac cine 100 MCG/0.5ML Intramuscular Suspension Phyllis Mae Work Phone: [facility] Work Phone: 08-24-2021 Fluzone High-Dose Quadrivalent 0.7 ML Intramuscular Suspension Prefilled Syringe; 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: [Fluzone High-Dose Quadrivalent 0.7 ML Intramuscular Suspension Prefilled Syringe] Phyllis Mae Work Phone: [facility] Work Phone: Comment on above: Series: 08-24-2021 influenza, high dose seasonal, preservative-free Phyllis Mae MD Work Phone: [facility] Work Phone: 03-22-2021 tuberculin skin test ; purified protein derivative solution, intradermal Phyllis Mae MD Work Phone: [facility] Work Phone: 03-12-2021 pneumococcal polysaccharide vaccine, 23 valent Kateryna Yeboah [facility] Work Phone: [facility] 03-12-2021 pneumococcal vaccine , unspecified formulation Kateryna Yeboah [employer] Work Phone: [facility] 03-12-2021 tuberculin skin test ; purified protein derivative solution, intradermal Phyllis Mae MD Work Phone: [facility] Work Phone: 01-01-2021 Ryan SARS-CoV-2 Vaccination Jesus oTribio [facility] 07-20-2020 influenza, injectabl e, quadrivalent, contains preservative Phyllis Mae MD Work Phone: [facility] Work Phone: 07-20-2020 influenza, injectabl e, quadrivalent, preservative free; 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: [Flulaval Quadrivalent 0.5 ML Intramuscular Suspension Prefilled Syringe] Phyllis Mae [facility] Work Phone: Comment on above: Series: 06-10-2020 tetanus toxoid, redu marcelina diphtheria toxoid, and acellular pertussis vaccine, adsorbed Phyllis Mae Work Phone: [facility] Work Phone: 07-25-2019 influenza, high dose seasonal, preservative-free Aquiles Lennathalie [facility] 11-12-2018 HEMOGLOBIN A1C Aquiles Pagenathalie [facility] 07-25-2018 influenza, injectable,quadrivalent, preservative free, pediatric Josh Togliatti [facility] 11-23-2000 influenza virus vacc ine, whole virus Phyllis Taverasabi Work Phone: [facility] Work Phone: Payers Date Payer Category Payer Dual Eligibility Medicare/Medicaid Organization [facility] DUAL ADVANTAGE [id number] 2024 Medicare HMO [employer] 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 [id number] 2024 Medicare [id number] 2024 Self-pay 2019 Medicare HUMANA MANAGED M [place]AR[place] HUMANA MCR ADVANTAGE CHOICE PPO xxxxxxxxx 2019-Present xxxxxxxxx [id number] .[id number] 2019 Medicare [id number] 1.2.840.809571.1.13.385.2 .[id number] 2019 Medicare PPO HUMANA MCR ADVAN TAGE CHOICE PPO [id number] .[id number] 2019 Unknown 2019 Medicare [id number] 2018 Medicaid [id number] 2.16.840.1.368294.3.249.1 3 2018 Medicaid [id number] 1.2.840.760382.1.13.385.2 .7.3.785312.315 2017 Medicaid 2017 Medicaid [id number] 2.16.840.1.740144.3.249.1 3 2014 Medicare [id number] 2.16.840.1.753798.3.249.1 3 2014 Medicare MEDICARE MEDICAR E PART A & B xxxxxxxxxxx 2014-Present [place] xxxxxxxxxxx 1.2.840.241077.1.13.385.2 .[id number] 2014 Medicare 2014 Medicare [id number] 1950 Unknown [id number] 2.16.840.1.927644.3.579.2 .1950 Unknown [id number] 2.16.840.1.658393.3.579.2 .1949 Unknown [id number] 2.16.840.1.100727.3.579.2 .1949 Unknown [id number] 2.16.840.1.757463.3.579.2 .1949 Unknown [id number] 2.16.840.1.367794.3.579.2 .1949 Unknown [id number] 2.16.840.1.071941.3.579.2 .1949 Unknown [id number] 2.16.840.1.366090.3.579.2 .1949 Unknown [id number] 2.16.840.1.544413.3.579.2 .1949 Unknown [id number] 2.16.840.1.397835.3.579.2 .1949 Unknown [id number] 2.16.840.1.066318.3.579.2 .1949 Unknown [id number] 2.16.840.1.768792.3.579.2 .1949 Unknown [id number] 2.16.840.1.126110.3.579.2 .1949 Unknown [id number] 2.16.840.1.285663.3.579.2 .1949 Unknown [id number] 2.16.840.1.588101.3.579.2 .1949 Unknown [id number] 2.16.840.1.138881.3.579.2 .900 1950 Unknown [id number] 2.16.840.1.106454.3.579.2 .1068 1949 Unknown [id number] 2.16.840.1.831377.3.579.2 .9 1949 Unknown [id number] 2.16.840.1.610634.3.579.2 .1068 1949 Unknown [id number] 2.16.840.1.394942.3.579.2 .1068 1949 Unknown [id number] 2.16.840.1.110280.3.579.2 .1068 1949 Unknown [id number] 2.16.840.1.396696.3.579.2 .1068 1949 Unknown [id number] 2.16.840.1.221807.3.579.2 .356 1949 Unknown [id number] 2.16.840.1.345445.3.579.2 .356 1949 Unknown [id number] 2.16.840.1.478448.3.579.2 .356 1949 Unknown [id number] 2.16.840.1.006852.3.579.2 .356 1949 Unknown [id number] 2.16.840.1.391274.3.579.2 .356 1949 Unknown [id number] 2.16.840.1.411597.3.579.2 .1243 1949 Unknown [id number] 2.16.840.1.836383.3.579.2 .903 1949 Unknown [id number] 2.16.840.1.815731.3.579.2 .903 1949 Unknown [id number] 2.16.840.1.172295.3.579.2 .903 1949 Unknown [id number] 2.16840.1.840483.3.579.2 .1949 Unknown [id number] 2.840.1.482881.3.579.2 .1949 Unknown [id number] 2.840.1.920196.3.579.2 .1949 Unknown [id number] 2.840.1.179454.3.579.2 .1949 Unknown [id number] 2.840.1.416577.3.579.2 .1949 Unknown [id number] 2.840.1.904644.3.579.2 1949 Unknown [id number] 2.840.1.386024.3.579.2 .1949 Unknown [id number] 2.840.1.636337.3.579.2 .1949 Unknown [id number] 2.840.1.831688.3.579.2 .1244 1949 Unknown [id number] .840.1.218232.3.579.2 .1244 1949 Unknown [id number] .840.1.272063.3.579.2 .1244 1949 Unknown [id number] 2.840.1.707531.3.579.2 .1244 1949 Unknown [id number] 2.840.1.377737.3.579.2 .1244 1949 Unknown [id number] 2.840.1.390873.3.579.2 .1949 Unknown [id number] 2.840.1.877835.3.579.2 .1949 Unknown [id number] 2.840.1.032569.3.579.2 .1949 Unknown [id number] 2.840.1.609679.3.579.2 .1949 Unknown [id number] 2.16.840.1.373114.3.579.2 .1949 Unknown [id number] 2.840.1.005373.3.579.2 .1949 Unknown [id number] 2.840.1.130240.3.579.2 .1949 Unknown [id number] 2.840.1.424882.3.579.2 1949 Unknown [id number] 2.840.1.223908.3.579.2 1949 Unknown [id number] 2.840.1.276871.3.579.2 1949 Unknown [id number] 2840.1.321790.3.579.2 1949 Unknown [id number] 2.840.1.392179.3.579.2 .1949 Unknown [id number] 2.840.1.992585.3.579.2 .1243 1949 Unknown [id number] 840.1.935969.3.579.2 .1243 1949 Unknown [id number] .840.1.011523.3.579.2 .1243 1949 Unknown [id number] 2.840.1.098421.3.579.2 .124 Medicare xxxxxxxxxx 2.840.1.445889.3.249.1 3 Unknown [id number] 2840.1.883789.3.579.2 .462 Unknown [id number] 2.16.840.1.866906.3.579.2 .462 Unknown [id number] 2.16.840.1.657534.3.579.2 .462 Unknown [id number] 2.16.840.1.354431.3.579.2 .462 Unknown [id number] 2.16.840.1.864752.3.579.2 .462 Unknown [id number] 2.16.840.1.387810.3.579.2 .462 Unknown [id number] 2.16.840.1.831576.3.579.2 .462 Unknown [id number] 2.16.840.1.147444.3.579.2 .462 Unknown [id number] 2.16.840.1.757383.3.579.2 .462 Unknown [id number] 2.16.840.1.878816.3.579.2 .462 Unknown [id number] 2.16.840.1.124081.3.579.2 .462 Unknown [id number] 2.16.840.1.328721.3.579.2 .462 Social History Date Type Detail Facility Start: 10-30-1954 End: 10-03-2024 Tobacco smoking status ORIS Current every day smoker [facility] Work Phone: Start: 01-04-2018 End: 02-28-2023 Cigarettes smoked current (pack per day) - Reported [facility] Work Phone: Start: 1950 Sex Assigned At Not on file [facility] Work Phone: Start: 10-30-1954 History of tobacco use Cigarette Smoker [facility] Start: 07-10-2018 End: 03-17-2022 Tobacco Comment Former 3-4 ppd 40 years [facility] Start: 05-24-2017 Alcohol Comment occasional [facility] Start: 10-25-2019 End: 01-02-2025 Alcohol intake Current drinker of alcohol (finding) [facility] Exposure to SARS-CoV-2 (event) Unable to assess [facility] Start: 12-31-2021 End: 12-05-2024 Exposure to SARS-CoV-2 (event) Not sure [facility] Start: 08-31-2020 End: 10-03-2024 Tobacco use and exposure Never used [facility] Tobacco smoking consumption unknown [facility] Start: 04-01-2019 End: 03-07-2023 Alcohol intake Ex-drinker (finding) [facility] Start: 02-28-2023 End: 03-07-2023 Tobacco use panel [facility] Work Phone: Within the last year , have you been afraid of your partner or ex-partner? No [facility] Are you now , , , , never or living with a partner? [facility] How often to you hav e a drink containing alcohol? Monthly or less [facility] How many standard drinks containing alcohol do you have on a typical day? 1 or 2 [facility] How often do you hav e 6 or more drinks on 1 occasion? Never [facility] How hard is it for you to pay for the very basics like food, housing, medical care, and heating Not hard at all [facility] Do you feel stress - tense, restless, nervous, or anxious, or unable to sleep at night because your mind is troubled all the time - these days [OSQ] Only a little [facility] (I/We) worried whether (my/our) food would run out before (I/we) got money to buy more. Never true [facility] Start: 09-28-2018 Gender identity Identifies as male gender (finding) [facility] Start: 09-28-2018 Sexual orientation Heterosexual (fin ding) [facility] Start: 08-22-2023 Alcohol Comment RARE [facility] Work Phone: Start: 01-07-2025 End: 01-29-2025 Sex Male (finding) [facility] Start: 1950 Sex Assigned At Male [facility] Start: 04-10-2025 Tobacco smoking status NHIS Ex-smoker (finding) [facility] NEGATED: Highlighted row - - [facility] Work Phone: Medical Equipment Procedure Code Equipment Code Equipment Origin al Text Equipment Identifier Dates [id number] Start: 10-29-2018 End: 12-05-2024 USE DIRECTED TWICE DAILY WITH LANTUS DX: DMII/E11.9 [id number] Start: 10-28-2018 End: 12-27-2019 1 (one) strip by Miscellaneous route 4 (four) times a day . [id number] Start: 12-27-2019 Use as directed, 4 times daily. . [id number] Start: 12-27-2019 End: 04-06-2021 Use to check BG 3x daily. DX code E11.9 on insulin . [id number] Start: 01-01-2020 End: 01-13-2021 Accu-Chek Elli Plus [...] DAILY. DX CODE E11.9 ON INSULIN . [id number] Start: 01-13-2021 Nail 11 X 170mm 130deg Fem Short Hilaria Ti Sterl Tfna - [id number] Start: 04-07-2021 Screw 105mm Fen Helical Ti Sterl Tfna - [id number], [id number] FDA Start: 04-07-2021 Screw 5 X 36mm T i Locking T25 Strdrv Im Nail - [id number] Start: 04-07-2021 by Miscellaneous route 4 (four) times a day E11.65 on insulin . [id number] Start: 08-03-2021 End: 09-02-2021 Use as directed QID. E11.65 on QID insulin regimen . [id number] Start: 08-03-2021 Use as directed 4 times daily . [id number] Start: 08-03-2021 Accu-Chek Elli Plus In Vitro Strip TEST TWICE DAILY. Refills: 0 DO Active Lancets Ultra Th in use to check glucose bid Refills: 0 DO Active USE TO CHECK BG 3X DAILY. DX CODE E11.9 ON INSULIN . [id number] Start: 01-10-2022 USE DIRECTED TO CHECK BLOOD SUGAR THREE TIMES DAILY [id number] Start: 02-06-2023 USE DIRECTED 4 TIMES A DAY E11.65 ON INSULIN REGIMEN . [id number] Start: 05-22-2022 Check blood gluc ose 4 times daily . [id number] Start: 11-01-2023 Use to check 2 x daily. DX code E11.65 . [id number] Start: 12-19-2023 by Miscellaneous route Use to check 2 x daily. DX code E11.65 . [id number] End: 12-19-2023 Use to check BG 3 x daily. DX code E11.65 inulin dependent DM (Accu-check Guide strips.) . [id number] Start: 01-04-2024 by Miscellaneous route Use to check BG 3 x daily. DX code E11.65 inulin dependent DM Accu-check Guide strips. . [id number] End: 01-04-2024 Use as directed to inject insulin 5 times per day . [id number] Start: 09-11-2024 Functional Status Date Assessment Result Facility NEGATED: Highlighted row Functional performance Functional status health issues are not documented Disease [facility] Work Phone: Mental Status Date Assessment Result Facility 04-10-2025 Cognitive function Level Of Cons ciousness Awake;Alert;Appropriate ;Follows Commands [facility] Work Phone: NEGATED: Highlighted row Cognitive function [Interpretation] Cognitive status health issues are not documented Disease [facility] Work Phone: Clinical Notes 02-01-2010 to 04-10-2025 BHUMIKA Lin, DPRemedios - 01/02/2025 3:22 PM Jeanette Hankins MA - 12/05/2024 12:45 PM Nuha Mae MD - 12/05/2024 12:45 PM JJWurtRadha carlson RN - 11/21/2024 3:57 PM ESTPatient Instructions Note Date & Type Note Facility 04-10-2025 Radiology Diagnostic study note [facility] Imaging Services [address] [place], [place] [address] Ankle min 3 Views MR#: [id number] Acct: [id number] Name: STEVO ELIZALDE R Rep #: [id number] : 1950 M 75 From: Bradford Mcarthur MD PCP: PHYLLIS MAE Status: REG ER Study:Ankle min 3 Views Date of Exam: Exam# [id number] Ordering Dr: Rakel Willard PROCEDURE: ANKLE MIN [...] inferior calcaneal spurring is seen. Reading Location: [address] CC: PHYLLIS MAE; ALLAN Marquez ~ Software Technician: Signed [facility] 04-10-2025 Radiology Diagnostic study note [facility] Imaging Services [address] [place] [address] Knee 3 Views MR#: [id number] Acct: [id number] Name: STEVO ELIZALDE R Rep #: [id number] : 1950 M 75 From: Pratibha Pope MD PCP: PHYLLIS MAE Status: REG ER Study:Knee 3 Views Date of Exam: 5 Exam# [id number] Ordering Dr: Rakel Willard PROCEDURE: KNEE 3 [...] 3. Other findings as noted. Reading Location: [place] [address] CC: PHYLLIS MAE; ALLAN Marquez ~ Software Technician: Signed [facility] Work Phone: 01-02-2025 Note Established Patient Visit [...] Date: 03/21/2024 3:08 PM Patient Status: Outpatient Telephone Repairer: Albert Sandra RVT Referring Physician: BUDDY LIN II ; Indications - non palpable pulses, tobacco use I73.9 - Peripheral vascular disease, unspecified Procedure Description 96430 Limited bilateral noninvasive physiologic studies of upper [...] created using voice (more content not included)... [facility] 01-02-2025 History of Present illness Narrative Images [...] Date: 03/21/2024 3:08 PM Patient Status: Outpatient Telephone Repairer: Albert Sandra RVT Referring Physician: BUDDY LIN II ; Indications - non palpable pulses, tobacco use I73.9 - Peripheral vascular disease, unspecified Procedure Description 32192 Limited bilateral noninvasive physiologic studies of upper [...] & Ankle Surgery documented in this encounter [facility] 12-05-2024 History of Present illness Narrative Pt [...] mcg (200 unit) tablet multivitamin with minerals (xvzcatxqdsvg-txpz-guytp acid) tablet 4. Smoker nicotine (Nicoderm CQ) [...] . 3 mon documented in this encounter [facility] Work Phone: 11-21-2024 History of Present illness Narrative ALLAN requested for Dexcom G7 Sensor [place]asmussen: [id number] Status: Eligibility could not be verified for this patient - patient not found. Please review patient information and re-submit. documented in this encounter [facility] 11-05-2024 Evaluation + Plan note Associated Problem(s): COPD (chronic obstructive pulmonary disease) (Multi) Orders: tiotropium (Spiriva with HandiHaler) 18 mcg inhalation capsule; Place 1 capsule (18 mcg) into inhaler and inhale once daily. AT THE SAME TIME EVERY DAY VIA HANDIHALER [facility] Work Phone: 11-05-2024 Evaluation + Plan note Associated Problem(s): Essential tremor Orders: primidone (Mysoline) 50 mg tablet; Take 1 tablet (50 mg) by mouth 2 times a day. [facility] Work Phone: 11-05-2024 Evaluation + Plan note Associated Problem(s): DM2 (diabetes mellitus, type 2) (Multi) Orders: Lantus Solostar U-100 Insulin 100 unit/mL (3 mL) pen; Inject 5 Units under the skin once daily in the morning. Take as directed per insulin instructions. Comprehensive Metabolic Panel; Future Hemoglobin A1C; Future Albumin-Creatinine Ratio, Urine Random; Future [facility] Work Phone: 11-05-2024 Evaluation + Plan note Associated Problem(s): Hypertension associated with type 2 diabetes mellitus (Multi) Orders: Comprehensive Metabolic Panel; Future [facility] Work Phone: 11-05-2024 Evaluation + Plan note Associated Problem(s): Hyperlipemia [facility] Work Phone: 11-05-2024 Evaluation + Plan note Associated Problem(s): Thrombocytopenia (CMS-HCC) [facility] Work Phone: 11-05-2024 Evaluation + Plan note Associated Problem(s): Folate deficiency [facility] Work Phone: 11-05-2024 Evaluation + Plan note Associated Problem(s): CRF (chronic renal failure), stage 3 (moderate) (Multi) [facility] Work Phone: 11-05-2024 Evaluation + Plan note Associated Problem(s): Fatigue (Resolved 11/05/2024) Orders: Comprehensive Metabolic Panel; Future Magnesium; Future Zinc; Future TSH with reflex to Free T4 if abnormal; Future [facility] Work Phone: 11-05-2024 History of [...] Comprehensive Metabolic Panel; Future Mixed hyperlipidemia Thrombocytopenia ([facility]) Folate deficiency CRF (chronic renal failure), stage [...] REFERRAL, . 1 mon Labs to [facility]. documented in this encounter [facility] Work Phone: 11-05-2024 Miscellaneous Notes Associated [...] if abnormal; Future documented in this encounter [facility] Work Phone: 10-03-2024 Instructions Jesus Adkins MA - 10/03/2024 2:43 PM EST How to contact your Care Team: Providers: DO Oniel Rich III, CNP Jill Bender, PA Nurse: Lien Zheng To reschedule office appointments call Scheduling [phone] In case of an emergency please call 911. When in need of refills please call the phone number listed above. Please include medication name, pharmacy name and specify 30 or 90 day supply Please check with your pharmacy within 24 hours of your request for refill. You must follow up as directed to continue current refills. Thank you! documented in this encounter [facility] 10-03-2024 Note Assessment & Plan: 1. History of carotid endarterectomy Carotid Duplex 2. Stenosis of left carotid artery Carotid Duplex 3. Neurogenic claudication 4. PAD (peripheral artery disease) ([facility]) 5. Type 2 diabetes mellitus with stage 3b chronic kidney disease, with long-term current use of insulin ([facility]) 6. Tobacco use Plan: At the present [...] Closed displaced intertrochanteric fracture of right femur ([facility]) 03/08/2021 Closed fracture of left orbital floor ([facility]) 06/10/2020 Closed fracture of multiple ribs of left side 06/10/2020 COPD (chronic obstructive pulmonary disease) ([facility]) Diabetes mellitus ([facility]) TYPE 2 Essential tremor Fall down stairs 04/14/2020 History of pneumonia Hyperlipidemia Hypertension Left carotid artery stenosis 03/30/2016 Leg cramps Leg heaviness MGUS (monoclonal gammopathy of unknown significance) Peptic ulcer disease PVD (peripheral vascular disease) ([facility]) Rhabdomyolysis 2010 Statin intolerance 04/01/2019 ??? Rhabdomyolysis in past. Stroke ([facility]) 2010 R side Past Surgical History: Procedure Laterality Date carotid angio 2010 HAND SURGERY Right 2009 IM NAILING FEMUR Right 04/07/2021 Procedure: RIGHT TFN; Surgeon: Dylon Galindo MD; Location: Main OR; Service: Orthopedic NE TEAEC W/PATCH GRF CAROTID VERTB SUBCLAV NECK [...] day . fe (more content not included)... [facility] 10-03-2024 History of Present illness Narrative Assessment & Plan: 1. History of carotid endarterectomy Carotid Duplex 2. Stenosis of left carotid artery Carotid Duplex 3. Neurogenic claudication 4. PAD (peripheral artery disease) ([facility]) 5. Type 2 diabetes mellitus with stage 3b chronic kidney disease, with long-term current use of insulin ([facility]) 6. Tobacco use Plan: At the present [...] follow up regarding carotid artery disease. Mr. lEizalde (birthday 1950) was seen in the office [...] Closed displaced intertrochanteric fracture of right femur ([facility]) 03/08/2021 Closed fracture of left orbital floor ([facility]) 06/10/2020 Closed fracture of multiple ribs of left side 06/10/2020 COPD (chronic obstructive pulmonary disease) ([facility]) Diabetes mellitus ([facility]) TYPE 2 Essential tremor Fall down stairs 04/14/2020 History of pneumonia Hyperlipidemia Hypertension Left carotid artery stenosis 03/30/2016 Leg cramps Leg heaviness MGUS (monoclonal gammopathy of unknown significance) Peptic ulcer disease PVD (peripheral vascular disease) ([facility]) Rhabdomyolysis 2010 Statin intolerance 04/01/2019 ??? Rhabdomyolysis in past. Stroke ([facility]) 2010 R side Past Surgical History: Procedure Laterality Date carotid angio 2010 HAND SURGERY Right 2009 IM NAILING FEMUR Right 04/07/2021 Procedure: RIGHT TFN; Surgeon: Dylon Galindo MD; Location: Main OR; Service: Orthopedic NE TEAEC W/PATCH GRF CAROTID VERTB SUBCLAV NECK [...] (10 mg total) by mouth daily . dubqjona-fwdc-VF-calcium-mins 9 mg iron-400 mcg Tab Take 1 [...] E11.65 . 1 each 0 blood-glucose meter [facility] Use to check blood sugar as needed to calibrate CGM . 1 each 0 blood-glucose meter, wireless Kit by Miscellaneous route Use to check BG 2x daily. DXc ode E11.76 . blood-glucose sensor ([employer] G7 Sensor) Jhon Use to check blood sugar four times daily . 3 each 11 lancets [facility] Check blood glucose 4 times daily . [...] ratio is 2.9. documented in this encounter [facility] 10-03-2024 Note Established Patient Visit BHUMIKA Lin [...] 2. Onychomycosis 3. PVD (peripheral vascular disease) (HCC) 4. Tobacco use 5. Diabetic foot (HCC) 6. Xerosis of skin Imaging: Reviewed noninvasive vascular studies in detail with patient today. Impression below. Segmental Doppler Lower Extremity Arterial Result Date: 03/21/2024 Patient Info Name: STEVO ELIZALDE Age: 74 years : 1950 Gender: Male Exam Date: 03/21/2024 3:08 PM Patient Status: Outpatient Telephone Repairer: Albert Sandra RVT Referring Physician: BUDDY LIN II ; Indications - non palpable pulses, tobacco use I73.9 - Peripheral vascular disease, unspecified Procedure Description 13806 Limited bilateral noninvasive physiologic studies of upper [...] such instances, kenyetta (more content not included)... [facility] 10-03-2024 History of Present illness Narrative Images [...] 2. Onychomycosis 3. PVD (peripheral vascular disease) ([facility]) 4. Tobacco use 5. Diabetic foot ([facility]) 6. Xerosis of skin Imaging: Reviewed noninvasive vascular studies in detail with patient today. Impression below. Segmental Doppler Lower Extremity Arterial Result Date: 03/21/2024 Patient Info Name: STEVO ELIZALDE Age: 74 years : 1950 Gender: Male Exam Date: 03/21/2024 3:08 PM Patient Status: Outpatient Telephone Repairer: Albert Sandra RVT Referring Physician: BUDDY LIN II ; Indications - non palpable pulses, tobacco use I73.9 - Peripheral vascular disease, unspecified Procedure Description 52038 Limited bilateral noninvasive physiologic studies of upper [...] & Ankle Surgery documented in this encounter [facility] 09-10-2024 Evaluation + Plan note Associated Problem(s): PVD (peripheral vascular disease) (HCC) Reviewed. [facility] 09-10-2024 Evaluation + Plan note Associated Problem(s): Essential hypertension Reviewed. [facility] 09-10-2024 Miscellaneous Notes Associated Problem(s): PVD (peripheral vascular disease) (HCC) Reviewed. Associated Problem(s): Essential hypertension Reviewed. documented in this encounter [facility] 09-09-2024 Note [facility] [address] ([address]) [facility] [address] [facility] [id number] Subjective: Stevo Elizalde is a [...] uses a walker. Seen today with her kkphsnwu-tx-zph. No changes see back in 6 months. No history of CA. Normal nuclear stress test in 2019. Overview of Problems Addressed: Problem Essential Hypertension Chest Pain Pvd (Peripheral Vascular Disease) ([facility]) Assessment & Plan: Reviewed Essential hypertension Reviewed. PVD (peripheral vascular disease) ([facility]) Reviewed. Histories: Past Medical History: Diagnosis Date Arthritis Carotid artery occlusion CKD (chronic kidney disease) Stage III Closed displaced intertrochanteric fracture of right femur ([facility]) 03/08/2021 Closed fracture of left orbital floor ([facility]) 06/10/2020 Closed fracture of multiple ribs of left side 06/10/2020 COPD (chronic obstructive pulmonary disease) ([facility]) Diabetes mellitus ([facility]) TYPE 2 Essential tremor Fall down stairs 04/14/2020 History of pneumonia Hyperlipidemia Hypertension Left carotid artery stenosis 03/30/2016 Leg cramps Leg heaviness MGUS (monoclonal gammopathy of unknown significance) Peptic ulcer disease PVD (peripheral vascular disease) ([facility]) Rhabdomyolysis 2010 Statin intolerance 04/01/2019 ??? Rhabdomyolysis in past. Stroke ([facility]) 2010 R side Past Surgical History: Procedure Laterality Date carotid angio 2010 HAND SURGERY Right 2009 IM NAILING FEMUR Right 04/07/2021 Procedure: RIGHT TFN; Surgeon: Dylon Galindo MD; Location: Main OR; Service: Orthopedic NE TEAEC W/PATCH GRF CAROTID VERTB SUBCLAV NECK [...] times daily. Dx code E11.65. . [facility] Check blood glucose 4 times daily . [...] 10 MG TABLET (more content not included)... [facility] 09-09-2024 History of Present illness Narrative [facility] [address] (11) [facility] [address] [facility] [id number] Subjective: Stevo Elizalde is a [...] uses a walker. Seen today with her ekrjeghc-yt-sbd. No changes see back in 6 months. No history of CA. Normal nuclear stress test in 2019. Overview of Problems Addressed: Problem Essential Hypertension Chest Pain Pvd (Peripheral Vascular Disease) ([facility]) Assessment & Plan: Reviewed Essential hypertension Reviewed. PVD (peripheral vascular disease) ([facility]) Reviewed. Histories: Past Medical History: Diagnosis Date Arthritis Carotid artery occlusion CKD (chronic kidney disease) Stage III Closed displaced intertrochanteric fracture of right femur ([facility]) 03/08/2021 Closed fracture of left orbital floor ([facility]) 06/10/2020 Closed fracture of multiple ribs of left side 06/10/2020 COPD (chronic obstructive pulmonary disease) ([facility]) Diabetes mellitus ([facility]) TYPE 2 Essential tremor Fall down stairs 04/14/2020 History of pneumonia Hyperlipidemia Hypertension Left carotid artery stenosis 03/30/2016 Leg cramps Leg heaviness MGUS (monoclonal gammopathy of unknown significance) Peptic ulcer disease PVD (peripheral vascular disease) ([facility]) Rhabdomyolysis 2009 Statin intolerance 04/01/2019 ??? Rhabdomyolysis in past. Stroke ([facility]) 2010 R side Past Surgical History: Procedure Laterality Date carotid angio 2010 HAND SURGERY Right 2009 IM NAILING FEMUR Right 04/07/2021 Procedure: RIGHT TFN; Surgeon: Dylon Galindo MD; Location: Main OR; Service: Orthopedic NE TEAEC W/PATCH GRF CAROTID VERTB SUBCLAV NECK [...] daily. DX code E11.65 . BLOOD-GLUCOSE METER MIS Use to check blood sugar as needed [...] times daily. Dx code E11.65. . LANCETS [facility] Check blood glucose 4 times daily . [...] (10 mg total) by mouth daily . RBQXORGQ-OMHZ-LD-CALCIUM-MINS 9 MG IRON-400 MCG TAB Take 1 [...] to schedule the procedure. Fax Order/Script to: [phone] for Central Scheduling scripts [phone] for [place] Scheduling scripts DO NOT USE R/O A DIAGNOSIS Order Specific Question: What type of stressing agent do you want to be used? Answer: Regadenoson (Lexiscan) Order Specific Question: Release to patient Answer: Immediate Order Specific Question: Administer radiopharmaceutical according to [facility] Nuclear Medicine policy? Answer: Yes ECG 12 Lead Order Specific Question: Release to patient Answer: Immediate Follow Up Ordered: Return in about 6 months (around 03/09/2025). Aquiles Herrera MD Review of Systems Constitutional: Negative for malaise/fatigue. Cardiovascular: Positive for chest pain. Negative for dyspnea on exertion, leg swelling and palpitations. Neurological: Negative for dizziness. documented in this encounter [facility] 09-09-2024 Instructions Fior Forbes CNP - 09/09/2024 [...] without sufficient information. documented in this encounter [facility] 09-09-2024 Note Patient ID: Stevo Elizalde is [...] 2 (two) times a day . lancets Mis, Check blood glucose 4 [...] (10 mg total) by mouth daily . tooisali-uwps-FT-calcium-mins 9 mg iron-400 mcg Tab, Take 1 [...] weakness and nu (more content not included)... [facility] 09-09-2024 History of Present illness Narrative Images [...] (10 mg total) by mouth daily . znnbpjmx-mebh-OL-calcium-mins 9 mg iron-400 mcg Tab, Take 1 [...] FOR SHORTNESS OF BREATH OR WHEEZING. [DISCONTINUED] Amrik Etienne U-100 Insulin 100 unit/mL (3 mL) InPn, [...] meter Misc DISCONTINUED: blood-glucose meter,continuous ([employer] G7 Executive Vice President) Misc 2. Dyslipidemia Lipid Panel 3. 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 [phone] 6. Bring blood sugar meter to follow up appointment. Orders Placed This Encounter Procedures Comprehensive Metabolic Panel Hemoglobin A1c Lipid Panel Microalbumin/Creatinine Ratio, UR Random T4, Free TSH Electronically signed by Fior BAIRES 242:18 PM documented in this encounter [facility] 09-05-2024 Instructions Urszula Aragon RN - 09/05/2024 2:54 PM EST How to Contact your Care Team: Provider: Dr. Aquiles Herrera MD Small Business Representative: Urszula Aragon RN NUCLEAR MEDICINE CARDIAC STRESS [...] questions please contact your care team or [phone]. documented in this encounter [facility] 07-25-2024 History of Present illness Narrative Subjective [...] REFERRAL, . 2 WEEKS Pt's [facility]. LABS TO BE DONE BY HOME HEALTH. documented in this encounter [facility] Work Phone: 06-27-2024 Note Established Patient [...] 2. Onychomycosis 3. PVD (peripheral vascular disease) ([facility]) 4. Tobacco use 5. Diabetic foot ([facility]) 6. Toe pain, bilateral Imaging: Reviewed noninvasive vascular studies in detail with patient today. Impression below. Segmental Doppler Lower Extremity Arterial Result Date: 03/21/2024 Patient Info Name: STEVO ELIZALDE Age: 74 years : 1950 Gender: Male Exam Date: 03/21/2024 3:08 PM Patient Status: Outpatient Telephone Repairer: Sandra, Albert RVT Referring Physician: BUDDY LIN II ; Indications - non palpable pulses, tobacco use I73.9 - Peripheral vascular disease, unspecified Procedure Description 66029 Limited bilateral noninvasive physiologic studies of upper [...] Lin DPM Podiatric Foot & Ankle Surgery HENRIQUE (more content not included)... [facility] 06-27-2024 History of Present illness Narrative Images [...] 2. Onychomycosis 3. PVD (peripheral vascular disease) ([facility]) 4. Tobacco use 5. Diabetic foot (HCC) 6. Toe pain, bilateral Imaging: Reviewed noninvasive vascular studies in detail with patient today. Impression below. Segmental Doppler Lower Extremity Arterial Result Date: 03/21/2024 Patient Info Name: STEVO ELIZALDE Age: 74 years : 1950 Gender: Male Exam Date: 03/21/2024 3:08 PM Patient Status: Outpatient Telephone Repairer: Albert Sandra Forrest Referring Physician: BUDDY LIN II ; Indications - non palpable pulses, tobacco use I73.9 - Peripheral vascular disease, unspecified Procedure Description 54472 Limited bilateral noninvasive physiologic studies of upper [...] & Ankle Surgery documented in this encounter [facility] 05-14-2024 Note Established Patient Visit BHUMIKA Lin [...] BY BUDDY LIN II, ON 05/14/2024 11:11:59 [facility] 05-14-2024 History of Present illness Narrative Images [...] & Ankle Surgery documented in this encounter [facility] 05-09-2024 Note Patient ID: Stevo Elizalde is [...] mg total) by mouth daily . lancets Misc, Check blood glucose 4 [...] mouth daily as needed for allergies . byccvnxm-bcpy-RS-calcium-mins 9 mg iron-400 mcg Tab, Take 1 [...] Psychiatric/Behavioral: Negative for (more content not included)... [facility] 05-09-2024 History of Present illness Narrative Images [...] mouth daily as needed for allergies . 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 Herrera, Biannual follow-up, saw SALES NEGOTIATOR 07/12/2023 Respiratory: Positive History of COPD, continues to smoke 1 ppd. Previously followed with Dr. Jesus Cruz, will be seeing Dr. Michele or [place]. Vascular: Positive History of CVA 2010 Feet: 10/18/2023 Follows with Podiatry: No Financial Wellness Coach: History of foot ulceration: Yes. Right 4thrd toe. Will be seeing podiatry soon, going to call with an appointment, with Dr Patel Newly developed lesion to right great toe at the base of the nail. Rx sent to pharmacy for doxycyline 100 mg BID. Instructed to call Dr. Jorge JIANG for appointment this week for further evaluation [...] Call if BG consistently <70 or >250. [phone] Patient has been checking blood glucoses 2 [...] 05/09/24 9:40 AM documented in this encounter [facility] 03-26-2024 Note Established Patient Visit BHUMIKA Lin DPM [...] increased knee flexed. Diagnoses: 1. Diabetic foot ([facility]) 2. PVD (peripheral vascular disease) ([facility]) 3. Type 2 diabetes mellitus with stage 3b chronic kidney disease, with long-term current use of insulin ([facility]) 4. Claudication of lower extremity ([facility]) 5. Tobacco use 6. Xerosis of skin 7. Onychodystrophy 8. Onychomycosis 9. Toe pain, bilateral Imaging: Reviewed noninvasive vascular studies in detail with patient today. Impression below. Segmental Doppler Lower Extremity Arterial Result Date: 03/21/2024 Patient Info Name: STEVO ELIZALDE Age: 74 years : 1950 Gender: Male Exam Date: 03/21/2024 3:08 PM Patient Status: Outpatient Telephone Repairer: Albert Sandra RVT Referring Physician: BUDDY LIN II ; Indications - non palpable pulses, tobacco use I73.9 - Peripheral vascular disease, unspecified Procedure Description 24316 Limited bilateral noninvasive physiologic studies of upper [...] shoes with inser (more content not included)... [facility] 03-26-2024 History of Present illness Narrative Images [...] increased knee flexed. Diagnoses: 1. Diabetic foot ([facility]) 2. PVD (peripheral vascular disease) ([facility]) 3. Type 2 diabetes mellitus with stage 3b chronic kidney disease, with long-term current use of insulin ([facility]) 4. Claudication of lower extremity ([facility]) 5. Tobacco use 6. Xerosis of skin 7. Onychodystrophy 8. Onychomycosis 9. Toe pain, bilateral Imaging: Reviewed noninvasive vascular studies in detail with patient today. Impression below. 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 Stable angina pectoris ([facility]) 11. Hypertension associated with type 2 diabetes [...] weeks. Insert SmartText documented in this encounter [facility] Work Phone: 02-22-2024 History of Present illness Narrative [facility] NOTE: Name: Setvo Elizalde, 73 y.o. CSN:[id number] PCP: Phyllis Mae MD ALL: Allergies Allergen [...] as of lately. Has not taken any kmbk-dvi-uecaekh medications at this time. Denies fever, nausea, [...] this morning. They did state that his java web developer was trying to wean him off some [...] 1 Application topically 2 times a day. Dexcom G6 Sensor device To check BS QID [...] DAY 90 tablet 3 multivitamin with minerals (svbznqkouvtn-gibu-uvgvv acid) tablet Take 1 tablet by mouth [...] Resource Strain: Low Risk (02/28/2023) Received from [facility] Overall Financial Resource Strain (CARDIA) Difficulty of Paying Living Expenses: Not hard at all Food Insecurity: No Food Insecurity (02/28/2023) Received from [facility] Hunger Vital Sign Worried About Running Out of Food in the Last Year: Never true Ran Out of Food in the Last Year: Never true Transportation Needs: No Transportation Needs (02/28/2023) Received from [facility] PRAPARE - Transportation Lack of Transportation (Medical): No Lack of Transportation (Non-Medical): No Physical Activity: Inactive (02/28/2023) Received from [facility] Exercise Vital Sign Days of Exercise per Week: 0 days Minutes of Exercise per Session: 0 min Stress: No Stress Concern Present (02/28/2023) Received from [facility] [employer] [place] [facility] [employer] [facility] - Occupational Stress Questionnaire Feeling of Stress : Only a little Social Connections: Moderately Isolated (02/28/2023) Received from [facility] Social Connection and Isolation Panel [NHANES] Frequency of Communication with Friends and Family: More than three times a week Frequency of Social Gatherings with Friends and Family: Once a week Attends Rastafari Services: Never Active Member of Clubs or Organizations: No Attends Club or Organization Meetings: Never Marital Status: Intimate Partner Violence: Not At Risk (02/28/2023) Received from [facility] Humiliation, Afraid, Rape, and Kick questionnaire Fear of Current or Ex-Partner: No Emotionally Abused: No Physically Abused: No Sexually Abused: No Housing Stability: Low Risk (02/28/2023) Received from [facility] Housing Stability Vital Sign Unable to Pay [...] to this plan and will report to [facility] [facility] immediately. Roberta Warren PA-C Advanced Practice Provider [facility] documented in this encounter [facility] Work Phone: 02-21-2024 Telephone encounter Note Danette could you see the above message and pend me an order for novolog on this patient. Thanks [facility] 02-21-2024 Miscellaneous Notes Danette could you see the above message and pend me an order for novolog on this patient. Thanks Alternative requested for aspart. Insurance prefers Novolog. documented in this encounter [facility] 02-21-2024 Telephone encounter Note Alternative requested for aspart. Insurance prefers Novolog. [facility] 01-04-2024 Telephone encounter Note After conversation with regarding "testing and high BG readings without symptoms." Discovered test strips were out dated by years." New rx for meter and strips given. With instructions to start apolinar for more accurate readings. [facility] 01-04-2024 Miscellaneous Notes After conversation with regarding "testing and high BG readings without symptoms." Discovered test strips were out dated by years." New rx for meter and strips given. With instructions to start apolinar for more accurate readings. documented in this encounter [facility] 12-25-2023 Telephone encounter Note Pt stated that he just picked up insulin and has no readings . Will call office back Monday with readings [facility] 12-25-2023 Miscellaneous Notes Pt stated that he [...] two different ladies. documented in this encounter [facility] 12-25-2023 Telephone encounter Note LVM to called office [facility] 12-25-2023 Telephone encounter Note Please call and see if you can get any current BG readings from him [facility] 12-19-2023 Telephone encounter Note Calling with BG [...] carefully 2 x to two different ladies. [facility] 12-19-2023 Miscellaneous Notes Calling with BG of [...] two different ladies. documented in this encounter [facility] 12-19-2023 History of Present illness Narrative Images [...] Closed displaced intertrochanteric fracture of right femur ([facility]) 03/08/2021 Closed fracture of left orbital floor ([facility]) 06/10/2020 Closed fracture of multiple ribs of left side 06/10/2020 COPD (chronic obstructive pulmonary disease) ([facility]) Diabetes mellitus ([facility]) TYPE 2 Essential tremor Fall down stairs 04/14/2020 History of pneumonia Hyperlipidemia Hypertension Left carotid artery stenosis 03/30/2016 Leg cramps Leg heaviness MGUS (monoclonal gammopathy of unknown significance) Peptic ulcer disease PVD (peripheral vascular disease) ([facility]) Rhabdomyolysis 2010 Statin intolerance 04/01/2019 ??? Rhabdomyolysis in past. Stroke ([facility]) 2010 R side Past Surgical History: Procedure Laterality Date carotid angio 2010 HAND SURGERY Right 2009 IM NAILING FEMUR Right 04/07/2021 Procedure: RIGHT TFN; Surgeon: Dylon Galindo MD; Location: Main OR; Service: Orthopedic NE TEAEC W/PATCH GRF CAROTID VERTB SUBCLAV NECK INC Right 2009 SHOULDER OPEN ROTATOR CUFF REPAIR Left 2014 Social History Socioeconomic History Marital status: Occupational History Occupation: Disability Comment: [employer] Tobacco Use Smoking status: Every Day Packs/day: [...] min Stress: No Stress Concern Present (02/28/2023) [employer] - Occupational Stress Questionnaire Feeling of Stress : Only a little Social Connections: Moderately Isolated (02/28/2023) Social Connection and Isolation Panel [NHANES] Frequency of Communication with Friends and Family: More than three times a week Frequency of Social Gatherings with Friends and Family: Once a week Attends Rastafari Services: Never Active Member of Clubs or [...] knee flexed. Diagnoses: 1. Diabetic foot (HCC) Segmental Doppler Lower Extremity Arterial 2. PVD (peripheral vascular disease) ([facility]) Segmental Doppler Lower Extremity Arterial 3. Type 2 diabetes mellitus with stage 3b chronic kidney disease, with long-term current use of insulin ([facility]) Segmental Doppler Lower Extremity Arterial 4. Claudication of lower extremity ([facility]) Segmental Doppler Lower Extremity Arterial 5. Tobacco [...] & Ankle Surgery documented in this encounter [facility] 12-14-2023 Evaluation + Plan note Associated Problem(s): Non-pressure chronic ulcer of other part of right foot with fat layer exposed (CMS/HCC) Doing fine and stable with current management, continue same HAS F/U WITH PRODUCT MANAGEMENT INTERN. [facility] Work Phone: 12-14-2023 Evaluation + Plan note Associated Problem(s): Vascular myelopathies (CMS/HCC) stable with current management, continue same [facility] Work Phone: 12-14-2023 Evaluation + Plan note Associated Problem(s): Depression, major, in remission (CMS/HCC) Doing fine and stable with current management, continue same [facility] Work Phone: 12-14-2023 Evaluation + Plan note Associated Problem(s): Thoracic aortic aneurysm (TAA) (CMS/HCC) Doing fine and stable with current management, continue same [facility] Work Phone: 12-14-2023 Evaluation + Plan note Associated Problem(s): Stage 3b chronic kidney disease (CMS/HCC) Doing fine and stable with current management, continue same HAS UTILITY WORKER DRIVER F/U. [facility] Work Phone: 12-14-2023 Miscellaneous Notes Associated Problem(s): Non-pressure chronic ulcer of other part of right foot with fat layer exposed (CMS/HCC) Doing fine and stable with current management, continue same HAS F/U WITH PRODUCT MANAGEMENT INTERN. Associated Problem(s): Vascular myelopathies (CMS/HCC) stable with current management, continue same Associated Problem(s): Depression, major, in remission (CMS/HCC) Doing fine and stable with current management, continue same Associated Problem(s): Thoracic aortic aneurysm (TAA) ([facility]) Doing fine and stable with current management, continue same Associated Problem(s): Stage 3b chronic kidney disease (CMS/HCC) Doing fine and stable with current management, continue same HAS UTILITY WORKER DRIVER F/U. documented in this encounter [facility] Work Phone: 12-14-2023 History of Present [...] and compressor device nebulizers (VixOne Nebulizer-Adult Mask) mis 7. Screening for prostate cancer Prostate Specific [...] . 2 MON documented in this encounter [facility] Work Phone: 10-18-2023 Instructions Fior Forbes [...] 10mg oral daily documented in this encounter [facility] 10-18-2023 History of Present illness Narrative Images [...] mouth daily as needed for allergies . ckopycdw-mngz-UU-calcium-mins 9 mg iron-400 mcg Tab, Take 1 [...] Negative Exam within last 12 months: yes Mat Cutter/Forest Ecology Professor: [facility] Other Ophthalmologic Conditions: S/P Right cataract extraction [...] routinely with: Dr. Herrera, Biannual follow-up, saw SALES NEGOTIATOR 07/12/2023 Respiratory: Positive History of COPD, continues to smoke 1 ppd. Previously followed with Dr. Jesus Cruz, will be seeing Dr. Michele or [place]. Vascular: Positive History of CVA 2009 Feet: 10/18/2023 Follows with Podiatry: No Financial Wellness Coach: History of foot ulceration: Yes. Right 4thrd [...] Call if BG consistently <70 or >250. [phone] Patient has been checking blood glucoses 2 [...] BAIRES 231:00 PM documented in this encounter [facility] 10-11-2023 Instructions Deshaun Rodrigues MD - 10/11/2023 1:23 PM EST Mr. Elizalde, We are going to get that CLIFFORD scan we talked about last time before we make any changes to help the tremors. Keep everything else the same for now. I did put a referral in for a manager of school here in our office building to check the foot. It was a pleasure taking care of you, and we all wish you the best of health. For concerns regarding medicines, adjusting doses or other questions: Call : [phone] (direct phone line to neurology staff) - leave a message if no one is available. (Note that [phone] is still listed on most of our paperwork and is a general line to the call pool in [place]; the number above is a faster way to get in touch with our staff here in [place]) [employer] - the best way to send messages directly to your doctors, or request Drug Refills. Call [phone] to set up Playner[employer] on your smart phone or computer. Mailing Address: Attn: Dr. Deshaun Rodrigues [address] [place] [address] [facility] [id number], [facility] [id number] Our documented in this encounter [facility] 10-11-2023 History of Present illness Narrative Neurology Follow Up Note [facility] Date of Service: 10/11/23 Service [...] as needed. Deshaun Rodrigues MD Staff Neurologist [facility] [address] [id number], [facility] [address] [facility] Fax: [phone] 10/11/23 Subjective Chief Complaint/Reason for Consult: seizure [...] Closed displaced intertrochanteric fracture of right femur ([facility]) (03/08/2021), Closed fracture of left orbital floor ([facility]) (06/10/2020), Closed fracture of multiple ribs of left side (06/10/2020), COPD (chronic obstructive pulmonary disease) ([facility]), Diabetes mellitus ([facility]), Essential tremor, Fall down stairs (04/14/2020), History of pneumonia, Hyperlipidemia, Hypertension, Left carotid artery stenosis (03/30/2016), Leg cramps, Leg heaviness, MGUS (monoclonal gammopathy of unknown significance), Peptic ulcer disease, PVD (peripheral vascular disease) ([facility]), Rhabdomyolysis (2009), Statin intolerance (04/01/2019), and Stroke ([facility]) (2009). He has a past surgical history [...] loratadine (CLARITIN) 10 mg, Oral, Daily PRN ciearuju-nwxx-NU-calcium-mins 9 mg iron-400 mcg Tab 1 tablet, [...] Absent NILESH Unable to Assess COORDINATION: Coordination Lquqke-dg-Shcw: No obvious ataxia; possibly some mild intention tremor on top of existing action tremor Valdovinos Finger taps: Slightly clumsy bilaterally but worse on the left Coordination Zqmx-Fkya-Lozx: Limited by hip pain STANCE AND GAIT: [...] WNL. A1c 8.8. documented in this encounter [facility] 08-22-2023 History of Present illness Narrative Subjective [...] . 1 mon documented in this encounter [facility] Work Phone: 07-12-2023 Instructions Katalina Marie MA - 07/12/2023 1:15 PM EDT How to Contact your Care Team: Provider: Dr. Aquiles Herrera MD Small Business Representative: Urszula Aragon RN documented in this encounter [facility] 07-12-2023 History of Present illness Narrative General Cardiology Clinic Follow up Heart & Vascular [facility] 07/12/2023 Arianna Alfaro, TELEPHONE MECHANIC [address] [facility] Medical Office [facility] [address] Patient: Stevo Elizalde Date of : [...] Closed displaced intertrochanteric fracture of right femur ([facility]) 03/08/2021 Closed fracture of left orbital floor ([facility]) 06/10/2020 Closed fracture of multiple ribs of left side 06/10/2020 COPD (chronic obstructive pulmonary disease) ([facility]) Diabetes mellitus ([facility]) TYPE 2 Essential tremor Fall down stairs 04/14/2020 History of pneumonia Hyperlipidemia Hypertension Left carotid artery stenosis 03/30/2016 Leg cramps Leg heaviness MGUS (monoclonal gammopathy of unknown significance) Peptic ulcer disease PVD (peripheral vascular disease) ([facility]) Rhabdomyolysis 2010 Statin intolerance 04/01/2019 ??? Rhabdomyolysis in past. Stroke (HCC) 2010 R side Past Surgical History: Procedure Laterality Date carotid angio 2010 HAND SURGERY Right 2009 IM NAILING FEMUR Right 04/07/2021 Procedure: RIGHT TFN; Surgeon: Dylon Galindo MD; Location: Main OR; Service: Orthopedic NE TEAEC W/PATCH GRF CAROTID VERTB SUBCLAV NECK [...] mouth daily as needed for allergies . fkwjkntc-vvoc-WR-calcium-mins 9 mg iron-400 mcg Tab Take 1 [...] prior to visit. documented in this encounter [facility] 04-05-2023 Instructions Deshaun Rodrigues MD - 04/05/2023 [...] adjusting doses or other questions: Call : [phone] (direct phone line to neurology staff) - leave a message if no one is available. (Note that [phone] is still listed on most of our paperwork and is a general line to the call pool in [place]; the number above is a faster way to get in touch with our staff here in [place]) [employer] - the best way to send messages directly to your doctors, or request Drug Refills. Call [phone] to set up Playnery on your smart phone or computer. Mailing Address: Attn: Dr. Deshaun Rodrigues [address] [place] [address] [facility] [id number], [facility] [id number] Our documented in this encounter [facility] 04-05-2023 History of Present illness Narrative Neurology Follow Up Note [facility] Date of Service: 04/05/23 Service [...] as needed. Deshaun Rodrigues MD Staff Neurologist [facility] [address] [facility] [address] [place] [address] [facility] Fax: [phone] 04/05/23 Subjective Chief Complaint/Reason for Consult: seizure [...] Closed displaced intertrochanteric fracture of right femur ([facility]) (03/08/2021), Closed fracture of left orbital floor ([facility]) (06/10/2020), Closed fracture of multiple ribs of left side (06/10/2020), COPD (chronic obstructive pulmonary disease) ([facility]), Diabetes mellitus ([facility]), Essential tremor, Fall down stairs (04/14/2020), History of pneumonia, Hyperlipidemia, Hypertension, Left carotid artery stenosis (03/30/2016), Leg cramps, Leg heaviness, MGUS (monoclonal gammopathy of unknown significance), Peptic ulcer disease, PVD (peripheral vascular disease) ([facility]), Rhabdomyolysis (2009), Statin intolerance (04/01/2019), and Stroke ([facility]) (2009). He has a past surgical history [...] loratadine (CLARITIN) 10 mg, Oral, Daily PRN ourhsmxm-dcvz-SA-calcium-mins 9 mg iron-400 mcg Tab 1 tablet, [...] Absent NILESH Unable to Assess COORDINATION: Coordination Xkzywe-gw-Ikqf: No obvious ataxia; possibly some mild intention tremor on top of existing action tremor Valdovinos Finger taps: Slightly clumsy bilaterally but worse on the left Coordination Bnno-Lxao-Sfil: Limited by hip pain STANCE AND GAIT: [...] last A1c 6.9. documented in this encounter [facility] 03-07-2023 Evaluation + Plan note Associated Problem(s): Other fracture of base of skull, initial encounter for closed fracture (CMS/HCC) (Resolved 03/07/2023) STABLE. T [facility] Work Phone: 03-07-2023 Evaluation + Plan note Associated Problem(s): Vascular myelopathies (CMS/HCC) Doing fine and stable with current management, continue same [facility] Work Phone: 03-07-2023 Evaluation + Plan note Associated Problem(s): Depression, major, in remission (CMS/HCC) Stable, continue same [facility] Work Phone: 03-07-2023 Evaluation + Plan note Associated Problem(s): Chronic stable angina (CMS/HCC) Doing fine and stable with current management, continue same T [facility] Work Phone: 03-07-2023 Miscellaneous Notes Associated [...] management, continue same documented in this encounter [facility] Work Phone: 03-07-2023 History of Present illness Narrative Subjective Patient ID: Stevo Elizalde is a 72 y.o. male who presents for Hospital Follow-up (F/U HOSPITAL DISCHARGE [facility] 02/27/23 - COPD EXACERBATION, LEFT RIB PAIN. ). HPI F/U AFTER 4 DAYS OF HOSPITAL STAY LAST WEEK FOR COPD EXACERBATIONS, B/L RIB PAIN , S/P FALL (WHILE WAS GOING TO BATHROOM DURING SLEEP). COPD IS IMPROVING BUT STILL HAS B/L RIB PAIN 4-03/08. HAD LABS , CXR , CT ANGIO [...] Hypertension associated with type 2 diabetes mellitus ([facility]/HCC) Comprehensive Metabolic Panel 9. Type 2 diabetes mellitus without complication, with long-term current use of insulin ([facility]/HCC) Comprehensive Metabolic Panel Hemoglobin A1C 10. Other [...] . 2 WEEKS documented in this encounter [facility] Work Phone: 06-16-2022 Instructions Deshaun Rodrigues [...] adjusting doses or other questions: Call : [phone] (direct phone line to neurology staff) - leave a message if no one is available. (Note that [phone] is still listed on most of our paperwork and is a general line to the call pool in [place]; the number above is a faster way to get in touch with our staff here in [place]) [employer] - the best way to send messages directly to your doctors, or request Drug Refills. Call [phone] to set up [employer]ner[employer] on your smart phone or computer. Mailing Address: Attn: Dr. Deshaun Rodrigues [facility] [address] [id number], [place] [address] Our documented in this encounter [facility] 06-16-2022 History of Present illness Narrative Neurology New Consult Note [facility] Date of Service: 06/16/22 Service [...] as needed. Deshaun Rodrigues MD Staff Neurologist [facility] [address] [facility] [id number], [facility] [address] [facility] Fax: [phone] 06/16/22 Subjective Chief Complaint/Reason for Consult: seizure [...] disease), Closed fracture of left orbital floor ([facility]) (06/10/2020), Closed fracture of multiple ribs of left side (06/10/2020), COPD (chronic obstructive pulmonary disease) ([facility]), Diabetes mellitus ([facility]), Essential tremor, Fall down stairs (04/14/2020), History of pneumonia, Hyperlipidemia, Hypertension, Left carotid artery stenosis (03/30/2016), Leg cramps, Leg heaviness, MGUS (monoclonal gammopathy of unknown significance), Peptic ulcer disease, PVD (peripheral vascular disease) ([facility]), Rhabdomyolysis (2009), Statin intolerance (04/01/2019), and Stroke ([facility]) (2009). He has a past surgical history [...] loratadine (CLARITIN) 10 mg, Oral, Daily PRN vjnazkkp-ubnj-SC-calcium-mins 9 mg iron-400 mcg Tab 1 tablet, [...] Absent NILESH Unable to Assess COORDINATION: Coordination Qqpsmf-is-Tpfz: No obvious ataxia; possibly some mild intention tremor on top of existing action tremor Valdovinos Finger taps: Slightly clumsy bilaterally Coordination Kamm-Elvb-Zbaf: Limited by hip pain STANCE AND GAIT: [...] last A1c 6.9. documented in this encounter [facility] 06-10-2022 History of Present illness Narrative Images [...] by mouth daily as needed for allergies. uvrapvax-ssyh-ZT-calcium-mins 9 mg iron-400 mcg Tab, Take 1 [...] disease, with long-term current use of insulin ([facility]) Hemoglobin A1c Comprehensive Metabolic Panel TSH T4, [...] Negative Exam within last 12 months: yes Mat Cutter/Forest Ecology Professor: Dr. Lepe Other Ophthalmologic Conditions: S/P Right [...] CVA 2009 Feet: Follows with Podiatry: No Financial Wellness Coach: History of foot ulceration: No History of [...] Call if BG consistently <70 or >250. [phone] Patient has been checking blood glucoses 2 [...] 06/10/22 12:25 PM documented in this encounter [facility] 06-04-2022 Evaluation + Plan note Associated Problem(s): GREEN (dyspnea on exertion) Reviewed. [facility] 06-04-2022 Miscellaneous Notes Associated Problem(s): GREEN (dyspnea on exertion) Reviewed. documented in this encounter [facility] 06-02-2022 History of Present illness Narrative [facility] [address] [facility] [address] [facility] [id number] Subjective: Stevo Elizalde is a 72 y.o. [...] III Closed fracture of left orbital floor ([facility]) 06/10/2020 Closed fracture of multiple ribs of left side 06/10/2020 COPD (chronic obstructive pulmonary disease) ([facility]) Diabetes mellitus ([facility]) TYPE 2 Essential tremor Fall down stairs 04/14/2020 History of pneumonia Hyperlipidemia Hypertension Left carotid artery stenosis 03/30/2016 Leg cramps Leg heaviness MGUS (monoclonal gammopathy of unknown significance) Peptic ulcer disease PVD (peripheral vascular disease) ([facility]) Rhabdomyolysis 2010 Statin intolerance 04/01/2019 ??? Rhabdomyolysis in past. Stroke ([facility]) 2010 R side Past Surgical History: Procedure Laterality Date carotid angio 2010 HAND SURGERY Right 2009 IM NAILING FEMUR Right 04/07/2021 Procedure: RIGHT TFN; Surgeon: Dylon Galindo MD; Location: Main OR; Service: Orthopedic NE THROMBOENDARTECTMY NECK,NECK INCIS Right 2009 SHOULDER OPEN [...] by mouth daily as needed for allergies. UVPYUOYU-QHIA-KC-CALCIUM-MINS 9 MG IRON-400 MCG TAB Take 1 [...] Negative for dizziness. documented in this encounter [facility] 06-02-2022 Instructions Kiana Cheatham MA - 06/02/2022 3:31 PM EDT How to Contact your Care Team: Provider: Dr. Aquiles Herrera MD Small Business Representative: Urszula Aragon RN REFILLS: When in need for refills please call your care team or the office at [phone]. Please include medication name, pharmacy name, and specify 30-day or 90-day supply. Please check with your pharmacy within 24 hours of request for your refill. You must follow up as directed to continue current refills. Thank you! documented in this encounter [facility] 01-10-2022 History of Present illness Narrative Images [...] by mouth daily as needed for allergies. stekpwpb-hqme-IT-calcium-mins 9 mg iron-400 mcg Tab, Take 1 [...] disease, with long-term current use of insulin ([facility]) Comprehensive Metabolic Panel Hemoglobin A1c Type 2 [...] Negative Exam within last 12 months: yes Mat Cutter/Forest Ecology Professor: Dr. Lepe Other Ophthalmologic Conditions: S/P Right [...] CVA 2009 Feet: Follows with Podiatry: No Financial Wellness Coach: History of foot ulceration: No History of [...] Call if BG consistently <70 or >250. [phone] Patient has been checking blood glucoses 2 [...] A1c Electronically signed by: Santana Orosco PA-C, MPAS 01/10/22 12:55 PM documented in this encounter [facility] 09-09-2021 History of Present illness Narrative This note is in progress. Dictation on: 09/09/2021 6:10 PM by: DYLON GALINDO [[id number]] documented in this encounter [facility] 08-03-2021 History of Present illness Narrative Images [...] by mouth daily as needed for allergies. tvlqrpxq-fxvk-JK-calcium-mins 9 mg iron-400 mcg Tab, Take 1 [...] with long-term current use of insulin (HCC) 2. Essential hypertension Type 2 diabetes, under [...] within last 12 months: yes Date: 11/18 Mat Cutter/Forest Ecology Professor: Dr. Lepe Other Ophthalmologic Conditions: S/P Right [...] appointment. Lab Results Component Value Date AST 05/09/2021 ALT 05/09/2021 No results found for: EXTCHOL, EXTTRIG, [...] foot exam: 08/03/21 Follows with Podiatry: No Financial Wellness Coach: History of foot ulceration: No History of [...] Call if BG consistently <70 or >250. [phone] Patient has been checking blood glucoses 2 [...] 08/03/21 11:44 AM documented in this encounter [facility] 05-21-2021 History of Present illness Narrative Dictation on: 05/21/2021 6:00 PM by: DYLON GALINDO [[id number]] documented in this encounter [facility] 05-11-2021 Miscellaneous Notes Reviewing AVS and patients [...] acute renal failure type (HCC) [N17.9, N18.9] OT Functional Diagnosis: Z73.6 Disability [...] 2.) The patient is discharged from the [facility] Problem: Actual or potential alteration in health [...] [place], will notify him to assume care. [facility] group will sign off. Problem: Actual or [...] to dr desai documented in this encounter [facility] 05-11-2021 History of Present illness Narrative COMPLEX DISCHARGE Date: 05/11/2021 Time: 10:46 AM Patient Name: Stevo Elizalde Date of : 1950 Sex: Male Patient Information Primary Caregiver: Other (Comment) ([facility]) Patient and spouse wanting patient discharged home today with home health care. Set up with [facility] by box spring maker Anya. Ambulatory orders in and signed, updated nursing Source of Information: Patient, Significant Other Living Arrangements: Facility Support Systems: Spouse/significant other Assistance Needed: Moderate Type of Residence: [facility] Care Facility Name: [facility] Prior to Admission Home Care Services: Yes Type of Current Home Care Services: Home health care Patient expects to be discharged to:: [facility] Does the patient need discharge transport arranged?: Yes [facility] Disposition D/C Disposition: Care Home Facility Agency/Destination: [facility] Estimated Length of Stay (ELOS): 16 ELOS Discussed with Patient / Family?: Yes Post-Acute Patient Choice 1: [facility] Post-Acute Patient Choice 2: [facility] How did you provide the Post Acute Choices: Electronically sent Regulatory Documentation: Medicare IM Regulatory Documentation Status: Signed Signed: Self DISCHARGE PLAN PROGRESS NOTE Date: 05/11/2021 Time: 10:16 AM Patient Name: Stevo Elizalde Date of : 1950 Sex: Male Communicated with patient's spouse Isabelle, who chose 1-[facility], 2-[facility]. Referral(s) sent, awaiting follow-up. Small Business Representative Sawmill Worker communicated with Raegan with [facility] who reports acceptance. No pre-cert required. Re Dye Hand and Small Business Representative, JAYDEN Juan and Kiran STACK CM, updated via Secure Chat. [facility] Disposition D/C Disposition: Care Home Facility Agency/Destination: [facility] Estimated Length of Stay (ELOS): 16 ELOS Discussed with Patient / Family?: Yes Post-Acute Patient Choice 1: [facility] Post-Acute Patient Choice 2: [facility] How did you provide the Post Acute Choices: Electronically sent Regulatory Documentation: Medicare IM Regulatory Documentation Status: Signed Signed: Self Anticipated Discharge Plan Anticipated HME: None Anticipated Home Care Needs: None Anticipated Facility Type: long term facility Occupational Therapy OCCUPATIONAL THERAPY TREATMENT NOTE [...] assist Sit to Supine: Stand by assist Insurance Healthcare Consultant: bedrails Functional Transfers Sit to Stand: Stand by assist Bed to Chair Transfers: Stand by assist Toilet Transfers: Stand by assist Insurance Healthcare Consultant: wheeled walker Skilled Intervention Provided: verbal cues, [...] Home Living: pt was at rehab in [place] for a hip fracture sustained ~ 1 month ago. pt came to [facility] from [facility] Prior Level of Function Receives Help From: Spouse Level of [place] - Transfers/Ambulation/Mobility: Independent with functional transfers, Independent with household ambulation, Independent with community ambulation Level of [place] - ADLs: Independent Level of [place] - Homemaking: Independent Driving: Patient does not [...] assist Stand Pivot Transfers: Contact guard assist Insurance Healthcare Consultant: wheeled walker Pt educated on safe transfer [...] Home Living: pt was at rehab in [place] for a hip fracture sustained ~ 1 month ago. pt came to [facility] from [facility] Prior Level of Function Receives Help From: Spouse Level of [place] - Transfers/Ambulation/Mobility: Independent with functional transfers, Independent with household ambulation, Independent with community ambulation Level of [place] - ADLs: Independent Level of [place] - Homemaking: Independent Driving: Patient does not [...] PM Precert remains pending for [facility] [place] [facility]. No updated therapy notes to send at this time. 1443- Spoke with spouse Isabelle. Isabelle confirmed plan will be for home with home health care. Overview of home health care and frequency discussed. Isabelle stepped out so [facility] list was texted to her. This worker's contact number listed for return call. Secure chat sent to Dr. Alvarez with an update. Updated Kiran, care worker, via secure chat. Brii with [facility] [place] notified. Patient Name: Stevo Elizalde Date of : 1950 Sex: Male [facility] Disposition D/C Disposition: Care Home Facility Agency/Destination: [facility] Estimated Length of Stay (ELOS): 16 ELOS Discussed with Patient / Family?: Yes Regulatory Documentation: Medicare IM Regulatory Documentation Status: Certified (LETTER LEFT FOR SLEEPING PT) Anticipated Discharge Plan Anticipated HME: None Anticipated Home Care Needs: None Anticipated Facility Type: long term facility [facility] with urinary tract infection treated and stable Waiting to go to back to the [facility] for recertification Patient is a posterior right hip fracture repair underwent physical therapy and patient is says he is going to bathroom but uses urinals at the bedside Hypertension under reasonable control on Procardia and labetalol Hyperlipidemia on treatment Physical examination findings unchanged Stable overall no new findings Plan waiting to go to [facility]. Internal medicine Inpatient Follow-up 05/09/2021 Bryce Alvarez MD [facility] Patient: Stevo Elizalde Date of : [...] with long-term current use of insulin (HCC) Assessment & Plan Blood sugar is stable. [...] goes through patient will be discharged to [facility] for physical therapy. SUBJECTIVE: History Since Last [...] will be able to go back to [facility] hopefully by Monday Denies any other issues [...] quiet environment Hearing Status: WFL Social Interaction: WF Comments: Followed all commands during session. ADL [...] guard assist Toilet Transfers: (declined to practice) Insurance Healthcare Consultant: wheeled walker Skilled Intervention Provided: monitoring patient [...] unilateral RUE support, without UE support, retropulsive Insurance Healthcare Consultant - Standing Dynamic: wheeled walker Loss of [...] Home Living: pt was at rehab in [place] for a hip fracture sustained ~ 1 month ago. pt came to [facility] from [facility] Prior Level of Function Receives Help From: Spouse Level of [place] - Transfers/Ambulation/Mobility: Independent with functional transfers, Independent with household ambulation, Independent with community ambulation Level of [place] - ADLs: Independent Level of [place] - Homemaking: Independent Driving: Patient does not [...] Standing Balance - Static: Contact guard assist Insurance Healthcare Consultant - Standing Static: wheeled walker Bed Mobility Rolling: Minimal assist, Modified independent Supine to Sit: Minimal assist Skilled Intervention Provided: verbal cues For: UE management, LE management Transfers Sit to Stand: Stand by assist Bed to Chair: Contact guard assist Stand Pivot Transfers: Contact guard assist Insurance Healthcare Consultant: wheeled walker Skilled Intervention Provided: verbal cues [...] Home Living: pt was at rehab in [place] for a hip fracture sustained ~ 1 month ago. pt came to [facility] from [facility] Prior Level of Function Receives Help From: Spouse Level of [place] - Transfers/Ambulation/Mobility: Independent with functional transfers, Independent with household ambulation, Independent with community ambulation Level of [place] - ADLs: Independent Level of [place] - Homemaking: Independent Driving: Patient does not [...] 30 Narrative: Upon rounding, Stevo's spouse motions road cleaner to come into the room. Sandwich And Drink Cart Operator entered and listened while the spouse shared her concerns with Stevo's eventual departure and discharge from the hospital. The transition piece from the hospital to the [facility] gives both spouse and Stevo anxiety. Spouse requested prayer for healing and for a smooth transition once leaving the hospital. Sandwich And Drink Cart Operator provided prayer and emotional/spiritual support while spouse gave her narrative which included her aspirations of travel with Stevo upon his departure. Both expressed their gratitude for the medical team and their hospitality. Sandwich And Drink Cart Operator provided an empathetic ear for Stevo as he also expressed his past medical [...] Future Visits: PRN, Pt aware to contact Sandwich And Drink Cart Operator as needed 05/07/21 1220 Visit Background Visit With Patient;Spouse Visit By Student Sandwich And Drink Cart Operator Visit Progression Follow-Up Visit Requested By Sandwich And Drink Cart Operator Initiated Visit Source Sandwich And Drink Cart Operator Initiated Visit Type Inpatient;Rounding Visit Circumstances and Events Routine Visit;Family Support Visit Length (minutes) 30 Patient's Response to Pastoral Care Appeared to be well-engaged;Expressed Gratitude for Visit;Visit said to have been helpful Visit Planning PRN;Pt aware to contact Sandwich And Drink Cart Operator as needed Spiritual Assessment Not assessed during visit Rastafari Assessment Assessed during this visit Family assessment provided? Assessed during this visit Patient Rastafari Needs Assessment Rastafari Connection Not Discussed Rastafari Home Rastafarian Taoism Connection Judaism Family Assessment Relationship to Patient Spouse Affect at Time of Visit Anxious;Open to Discussion;Tearful;Talkative;Pleas ant;Worried Emotions Expressed During Visit Coping;Hopeful;Overwhelmed;Relies on Pia;Tired;Worried Expressed Concerns Regarding Patient Illness Additional Responsibilities;Concern about Patient/Outcome;[id number];Meche th of Stay;Life Review;Transition in Care Sources of Hope and Strength Comfort;Pia;Praying for Healing;Supportive of One Another Family / Friend's Support and Participation Active (Their children play a considerable part in their support) Grief Assessment Appropriately Coping Spiritual Assessment Seeking Healing/Wholeness Interventions - Family / Friend Sandwich And Drink Cart Operator Support;Affirmation;Empathic Listening;Facilitated Story-Telling;Provided Comfort;Provided Prayer;Provided Spiritual Support Family / Friend Outcomes Expressed Gratitude;Open to Sandwich And Drink Cart Operator Visit;Processed Tearfully;Processed Verbally;Reduced Anxiety;Verbalized Feelings Akhil Ventura Sandwich And Drink Cart Operator Assembling Inspector [facility] 22/05 On-Call DISCHARGE PLAN PROGRESS NOTE Date: 05/07/2021 Time: 10:41 AM Patient is ready for discharge once precert is received. Precert remains pending at this time. Most recent therapy note from 05/06 was sent to [place]. Patient Name: Stevo Elizalde Date of : 1950 Sex: Male [facility] Disposition D/C Disposition: Care Home Facility Agency/Destination: [facility] Estimated Length of Stay (ELOS): 16 ELOS Discussed with Patient / Family?: Yes Anticipated Discharge Plan Anticipated HME: None Anticipated Home Care Needs: None Anticipated Facility Type: long term facility Internal medicine Inpatient Follow-up 05/07/2021 Bryce Alvarez MD [facility] Patient: Stevo Elizalde Date of : [...] disease, with long-term current use of insulin ([facility]) Assessment & Plan Blood sugar is stable. Essential hypertension Assessment & Plan Blood pressure is better. Anemia due to stage 3a chronic kidney disease (HCC) Assessment & Plan Hemoglobin stable. Urinary tract infection associated with indwelling urethral catheter ([facility]) Assessment & Plan Resolved. Urinary retention Assessment & Plan Confirmed by post void residual. As Medina is out now we will check post residual volume by ultrasound. Chronic obstructive pulmonary disease (HCC) Assessment & Plan Stable Summary of assessment and Plan patient overall stable after checking post void urine will discharge the [facility] to [facility]. SUBJECTIVE: History Since Last Visit: Patient has [...] AM-PAC Basic Mobility Raw Score: 17 Points [facility] Basic Mobility % Impaired: 43.83% Activity Tolerance [...] assist Stand Pivot Transfers: Contact guard assist Insurance Healthcare Consultant: wheeled walker Skilled Intervention Provided: verbal cues, [...] Home Living: pt was at rehab in [place] for a hip fracture sustained ~ 1 month ago. pt came to [facility] from [facility] Prior Level of Function Receives Help From: Spouse Level of [place] - Transfers/Ambulation/Mobility: Independent with functional transfers, Independent with household ambulation, Independent with community ambulation Level of [place] - ADLs: Independent Level of [place] - Homemaking: Independent Driving: Patient does not [...] Patient is [facility] to be [facility] to [facility] and verifying certification Patient is here in [...] 1:30 PM Updated therapy notes sent to [facility] for precert. Contacted [facility] and notified Brii that notes were sent. Patient Name: Stevo Elizalde Date of : 1950 Sex: Male [facility] Disposition D/C Disposition: Care Home Facility Agency/Destination: [facility] Estimated Length of Stay (ELOS): 16 ELOS Discussed with Patient / Family?: Yes Anticipated Discharge Plan Anticipated HME: None Anticipated Home Care Needs: None Anticipated Facility Type: long term facility Occupational Therapy OCCUPATIONAL THERAPY TREATMENT NOTE [...] quiet environment Hearing Status: WFL Social Interaction: [facility] Comments: Followed all commands during session. ADL [...] Contact guard assist, Head of bed elevated Insurance Healthcare Consultant: bedrails Skilled Intervention Provided: monitoring patient response with activity For: fall prevention, efficient movement, safe use of bedrails and/or equipment Resulting In: improved activity tolerance, improved performance, improved functional independence, improved safety, increased initiation in mobility task(s) Functional Transfers Sit to Stand: Minimal assist (from EOB) Insurance Healthcare Consultant: wheeled walker Skilled Intervention Provided: monitoring patient [...] Home Living: pt was at rehab in [place] for a hip fracture sustained ~ 1 month ago. pt came to [facility] from [facility] Prior Level of Function Receives Help From: Spouse Level of [place] - Transfers/Ambulation/Mobility: Independent with functional transfers, Independent with household ambulation, Independent with community ambulation Level of [place] - ADLs: Independent Level of [place] - Homemaking: Independent Driving: Patient does not [...] Direct Patient Care: 30 Narrative: While rounding, road cleaner visited with Stevo. He shared the nature of his visit [...] return to post his medical stay (fishing). Sandwich And Drink Cart Operator providing a listening ear while Stevo shared his anxiety of the unknown of what was going on with his kidney's. Sandwich And Drink Cart Operator continued to provide emotional/spiritual support while Stevo requested prayer. Sandwich And Drink Cart Operator prayed and let Stevo know that the pastoral care team was ready and available to help with emotional/spiritual support during his visit. Pastoral Care team will remain available to support patient and family PRN. No family was present during the visit. Patient's Response to Pastoral Care: Planning for Future Visits: PRN, Pt aware to contact Sandwich And Drink Cart Operator as needed 05/05/21 1125 Visit Background Visit With Patient Visit By Student Sandwich And Drink Cart Operator Visit Progression Introduction Visit Requested By Sandwich And Drink Cart Operator Initiated Visit Source Sandwich And Drink Cart Operator Initiated Visit Type Inpatient;Rounding Visit Circumstances and Events Routine Visit Visit Length (minutes) 30 Visit Planning PRN;Pt aware to contact Sandwich And Drink Cart Operator as needed Spiritual Assessment Assessed during this visit Rastafari Assessment Unable to Assess during this visit Family assessment provided? Unable to asess during this visit Patient Spiritual Needs Assessment Sources of Connection Son;Spouse (Son(s) - two of them ) Belief Practices Prayer Image of the Glass Cutter Hand;Love (The Good Lord) Role of the Divine [...] Support;Receive Comfort;Regain Sense of Normalcy Akhil Ventura Sandwich And Drink Cart Operator Assembling Inspector [facility] 22/05 On-Call Physical Therapy PHYSICAL THERAPY TREATMENT [...] Standing Balance - Static: Contact guard assist Insurance Healthcare Consultant - Standing Static: wheeled walker Standing Balance - Dynamic: Contact guard assist Insurance Healthcare Consultant - Standing Dynamic: wheeled walker Standing Balance [...] assist Stand Pivot Transfers: Contact guard assist Insurance Healthcare Consultant: wheeled walker Skilled Intervention Provided: verbal cues, [...] Home Living: pt was at rehab in [place] for a hip fracture sustained ~ 1 month ago. pt came to [facility] from [facility] Prior Level of Function Receives Help From: Spouse Level of [place] - Transfers/Ambulation/Mobility: Independent with functional transfers, Independent with household ambulation, Independent with community ambulation Level of [place] - ADLs: Independent Level of [place] - Homemaking: Independent Driving: Patient does not [...] medicine Inpatient Follow-up 05/05/2021 Bryce Alvarez MD [facility] Patient: Stevo Elizalde Date of : [...] disease, with long-term current use of insulin ([facility]) Assessment & Plan Blood sugar is stable. [...] 3:10 PM Updated therapy notes sent to in-basket. A message was left for Brii with [facility] [place]. Patient Name: Stevo Elizalde Date of : 1950 Sex: Male [facility] Disposition D/C Disposition: Care Home Facility Agency/Destination: [facility] Estimated Length of Stay (ELOS): 16 ELOS Discussed with Patient / Family?: Yes Anticipated Discharge Plan Anticipated HME: None Anticipated Home Care Needs: None Anticipated Facility Type: long term facility Physical Therapy PHYSICAL THERAPY TREATMENT NOTE [...] Standing Balance - Dynamic: Contact guard assist Insurance Healthcare Consultant - Standing Dynamic: wheeled walker Standing Balance [...] assist Bed to Chair: Contact guard assist Insurance Healthcare Consultant: wheeled walker Skilled Intervention Provided: verbal cues, [...] Home Living: pt was at rehab in [place] for a hip fracture sustained ~ 1 month ago. pt came to [facility] from [facility] Prior Level of Function Receives Help From: Spouse Level of [place] - Transfers/Ambulation/Mobility: Independent with functional transfers, Independent with household ambulation, Independent with community ambulation Level of [place] - ADLs: Independent Level of [place] - Homemaking: Independent Driving: Patient does not [...] Male Patient Information Primary Caregiver: Other (Comment) ([facility] [place]) Per Dr Alvarez, precert can be started to return to [place]. Source of Information: Patient, Significant Other Living Arrangements: Facility Support Systems: Spouse/significant other Assistance Needed: Moderate Type of Residence: [facility] Care Facility Name: [facility] Prior to Admission Home Care Services: Yes Type of Current Home Care Services: Home health care Patient expects to be discharged to:: [facility] Does the patient need discharge transport arranged?: Yes [facility] Disposition D/C Disposition: Care Home Facility Agency/Destination: [facility] Estimated Length of Stay (ELOS): 16 ELOS [...] reviewed. Normal LV function No history of CA. Stage III renal insufficiency Remote history of CVA Follows with vascular. hospitalized in January of 2017 at [facility]. He had nausea and some abdominal pain, warm feeling from his head down through his body, perhaps some chest discomfo Arthritis Carotid artery occlusion CKD (chronic kidney disease) Stage III Closed fracture of left orbital floor (HCC) 06/10/2020 Closed fracture of multiple ribs of left side 06/10/2020 COPD (chronic obstructive pulmonary disease) ([facility]) Diabetes mellitus ([facility]) TYPE 2 Essential tremor Fall down stairs 04/14/2020 History of pneumonia Hyperlipidemia Hypertension Left carotid artery stenosis 03/30/2016 Leg cramps Leg heaviness MGUS (monoclonal gammopathy of unknown significance) Peptic ulcer disease PVD (peripheral vascular disease) ([facility]) Rhabdomyolysis 2009 Statin intolerance 04/01/2019 ??? Rhabdomyolysis in past. Stroke ([facility]) 2009 R side Height: 5' 7.5" Current [...] in place for patient to return to [facility] at discharge. Patient will require new precert. Patient Name: Stevo Elizalde Date of : 1950 Sex: Male [facility] Disposition D/C Disposition: Care Home Facility Agency/Destination: [facility] Estimated Length of Stay (ELOS): 16 ELOS Discussed with Patient / Family?: Yes Internal medicine Inpatient Follow-up 05/03/2021 Bryce Alvarez MD [facility] Patient: Stevo Elizalde Date of : 1950 (71 y.o.) PCP: Phyllis Mae MD ASSESSMENT/PLAN: Stevo Elizalde 71 y.o. male Sepsis with acute renal failure without septic shock ([facility]) Assessment & Plan Present on admission now resolved. Repeat urine culture no growth. Will discontinue antibiotics. * Acute renal failure superimposed on stage 3a chronic kidney disease ([facility]) Assessment & Plan Acute component more than likely obstructive. A trial of discontinuing Medina catheter was tried. Patient still could not void much yesterday post void residual was 330 mL. Medina was reinserted noted that creatinine increased after the Medina was discontinued. Repeat lab ordered for tomorrow Type 2 diabetes mellitus with stage 3b chronic kidney disease, with long-term current use of insulin ([facility]) Assessment & Plan Blood sugar is stable. Essential hypertension Assessment & Plan Blood pressure is better. Anemia due to stage 3a chronic kidney disease ([facility]) Assessment & Plan Repeat lab ordered for tomorrow Urinary tract infection associated with indwelling urethral catheter ([facility]) Assessment & Plan Resolved. Urinary retention Assessment & Plan Confirmed by post void residual. Chronic obstructive pulmonary disease ([facility]) Assessment & Plan Stable Summary of assessment and Plan patient clinically stable patient did have post void residual significant with increased creatinine. Now Medina is placed back will discontinue IV fluids and IV antibiotic if BUN/creatinine is stable will plan discharge to [facility] tomorrow. SUBJECTIVE: History Since Last Visit: Patient [...] Pharmacist: Fransisca Johnson RPh,PharmD Contact Number: [phone] [facility] Medicine Inpatient Follow-up 05/02/2021 Don Pennington MD [facility] Patient: Stevo Elizalde Date of : [...] medicine Inpatient Follow-up 05/01/2021 Bryce Alvarez MD [facility] Patient: Stevo Elizalde Date of : 1950 (71 y.o.) PCP: Phyllis Mae MD ASSESSMENT/PLAN: Stevo Elizalde 71 y.o. male * Sepsis with acute renal failure without septic shock ([facility]) Assessment & Plan Probable source of infection urinary tract infection. Urine culture growing Staph aureus,yeast and enterococci Plan continue vancomycin and Diflucan. Repeat urine culture sent. Type 2 diabetes mellitus with stage 3b chronic kidney disease, with long-term current use of insulin ([facility]) Assessment & Plan Blood sugar is stable. Essential hypertension Assessment & Plan Blood pressure is better. Anemia due to stage 3a chronic kidney disease ([facility]) Assessment & Plan Monitor hemoglobin. Urinary tract infection associated with indwelling urethral catheter ([facility]) Assessment & Plan Source of sepsis. Plan continue IV antibiotic and antifungal treatment. Urinary retention Assessment & Plan Plan bladder training and discontinue Medina monitor for difficulty in urinating and residual urine. May repeat ultrasound of kidney and bladder without Medina before discharge. Chronic obstructive pulmonary disease ([facility]) Assessment & Plan Stable Summary of assessment and Plan plan continue IV antibiotic and antifungal. DC Medina look for any evidence of obstruction or difficulty urinating if none will do ultrasound of the kidney and bladder before discharging back to [facility]. Called his and updated the plan. SUBJECTIVE: [...] Laboratory, Microbiology, Radiology, Cardiology, Medications and Transcriptions [facility] Medicine Inpatient Follow-up 04/30/2021 Don Pennington MD [facility] Patient: Stevo Elizalde Date of : [...] acute renal failure and released to the [facility]. Stable type 2 diabetes mellitus Stable chronic [...] significant other Living arrangement: [facility] Support system: Significant other Type of residence: [facility] Was Home Health ordered? No Was Durable Medical Equipment (DME) ordered? No Bed or wheelchair confined: No Diet: Diabetic diet Inadequate nutrition: No Medication adherence problem: No Experiencing side effects from current medications: No History of falls in last 6 months: (!) Yes Difficulty keeping appointments: No Family aware of the patient's advance care planning wishes: Yes Rastafari or spiritual beliefs that impact treatment: No [...] Met with patient and spouse. Admitted from [facility] where he is currently receiving therapy with plan to return home when stronger. CHART REVIEW Reason for visit: Dietitian Screen d/t BMI of 21.14. Current diet order: ALEXSANDRA, renal Diet Current oral nutrition supplement: n/a Recent intake: 75%-100%X, 25%-50%X1. Dx/Pertinent clinical information: Past Medical History: Diagnosis Date Arthritis Carotid artery occlusion CKD (chronic kidney disease) Stage III COPD (chronic obstructive pulmonary disease) ([facility]) Diabetes mellitus (HCC) TYPE 2 Essential tremor History of pneumonia Hyperlipidemia Hypertension Left carotid artery stenosis 03/30/2016 Leg cramps Leg heaviness MGUS (monoclonal gammopathy of unknown significance) Peptic ulcer disease PVD (peripheral vascular disease) ([facility]) Rhabdomyolysis 2010 Stroke (HCC) 2010 R side Height: 5' 7.5" Current weight: [...] 1 Encounters: 04/27/21 62.1 kg (137 lb) [place] body weight: 67.2 kg (148 lb 4.1 [...] Pending Pharmacist: Kenna Quintero RPh,PharmD Contact Number: [phone] [facility] Medicine Inpatient Follow-up 04/28/2021 Brenda Peña MD [facility] Patient: Stevo Elizalde Date of : 1950 (71 y.o.) PCP: Phyllis Mae MD ASSESSMENT/PLAN: Stevo Elizalde 71 y.o. male [facility] in a [facility] is known for chronic kidney disease stage III with baseline creatinine of 1.1-1.2 history of peripheral vascular disease and carotid artery occlusion COPD history of diabetes mellitus hypertension the hyperlipidemia essential tremor MGUS and peptic ulcer disease previous stroke and rhabdomyolysis is here due to weakness has chronic Medina catheter, Principal Problem: ELBA (acute kidney injury) ([facility]) PLAN: Urinary tract infection Urine culture growing [...] Reviewed 1:42 PM documented in this encounter [facility] 05-05-2021 Hospital Discharge instructions Vonda Herrera OTA - 05/05/2021 1:12 PM EDT Please issue sock aid at discharge. documented in this encounter [facility] 04-30-2021 Consult note Occupational Therapy OCCUPATIONAL THERAPY [...] patient's family / caregiver support is a coater slate for return to prior level of function. The patient's compliance is a coater slate to return to prior level of function. [...] Attention: Attends to quiet environment Hearing Status: WF Social Interaction: WF ADL LE Dressing: Moderate assist (Manages L sock with supervision, dep for R sock) Functional Mobility: Minimal assist, Adaptive equipment, Additional time (Taking a few steps from chair to bed) Bed Mobility Sit to Supine: Minimal assist (To elevate LEs over EOB) Functional Transfers Sit to Stand: Minimal assist (From chair to FWW x2) Bed to Chair Transfers: Minimal assist Insurance Healthcare Consultant: wheeled walker Home Living Obtained Home Living [...] Home Living: pt was at rehab in [place] for a hip fracture sustained ~ 1 month ago. pt came to [facility] from [facility] Prior Level of Function Receives Help From: Spouse Level of [place] - Transfers/Ambulation/Mobility: Independent with functional transfers, Independent with household ambulation, Independent with community ambulation Level of [place] - ADLs: Independent Level of [place] - Homemaking: Independent Driving: Patient does not drive Subjective Impression - Prior Function: Pt's spouse works rn ante part[employer] outside of the home. For the past ~1 month, pt has been at [facility] for rehab for hip fx. Past Medical History: Diagnosis Date Abnormal stress test 04/21/2016 Dobutamine stress echo October 2018 negative for ischemia at a very low submaximal heart rate reviewed. Normal LV function No history of CA. Stage III renal insufficiency Remote history of CVA Follows with vascular. hospitalized in January of 2017 at [facility] in [place]. He had nausea and some abdominal pain, warm feeling from his head down through his body, perhaps some chest discomfo Arthritis Carotid artery occlusion CKD (chronic kidney disease) Stage III Closed fracture of left orbital floor ([facility]) 06/10/2020 Closed fracture of multiple ribs of left side 06/10/2020 COPD (chronic obstructive pulmonary disease) ([facility]) Diabetes mellitus ([facility]) TYPE 2 Essential tremor Fall down stairs 04/14/2020 History of pneumonia Hyperlipidemia Hypertension Left carotid artery stenosis 03/30/2016 Leg cramps Leg heaviness MGUS (monoclonal gammopathy of unknown significance) Peptic ulcer disease PVD (peripheral vascular disease) ([facility]) Rhabdomyolysis 2010 Statin intolerance 04/01/2019 ??? Rhabdomyolysis in past. Stroke ([facility]) 2010 R side Past Surgical History: Procedure Laterality Date carotid angio 2010 HAND SURGERY Right 2009 IM NAILING FEMUR Right 04/07/2021 Procedure: RIGHT TFN; Surgeon: Dylon Galindo MD; Location: Main OR; Service: Orthopedic NE THROMBOENDARTECTMY NECK,NECK INCIS Right 2009 SHOULDER OPEN [...] AM-PAC Basic Mobility Raw Score: 16 Points AM-[facility] Basic Mobility % Impaired: 47.12% Physical Therapy Assessment History: Stevo Elizalde is a 71 y.o. male presenting from [facility] with complaint of decreased level of consciousness [...] Standing Balance - Static: Contact guard assist Insurance Healthcare Consultant - Standing Static: wheeled walker Bed Mobility Rolling: Modified independent Supine to Sit: Modified independent Sit to Supine: Modified independent Transfers Sit to Stand: Minimal assist Bed to Chair: Minimal assist Stand Pivot Transfers: Minimal assist Insurance Healthcare Consultant: wheeled walker Gait/Locomotion Gait Assistance: Minimal assist Assistive Device: wheeled walker Distance: 3 Feet Pattern: step to Home Living Obtained Home Living and PLOF info from: Patient Lives With: Spouse Type of Home: House Home Layout: One level, Laundry in basement Steps to enter home: Ramped entrance Additional Objective Details - Home Living: pt was at rehab in [place] for a hip fracture sustained ~ 1 month ago. pt came to [facility] from [facility] Prior Level of Function Receives Help From: Spouse Level of [place] - Transfers/Ambulation/Mobility: Independent with functional transfers, Independent with household ambulation, Independent with community ambulation Level of [place] - ADLs: Independent Level of [place] - Homemaking: Independent Driving: Patient does not [...] reviewed. Normal LV function No history of CA. Stage III renal insufficiency Remote history of CVA Follows with vascular. hospitalized in January of 2017 at [facility]. He had nausea and some abdominal pain, warm feeling from his head down through his body, perhaps some chest discomfo Arthritis Carotid artery occlusion CKD (chronic kidney disease) Stage III Closed fracture of left orbital floor ([facility]) 06/10/2020 Closed fracture of multiple ribs of left side 06/10/2020 COPD (chronic obstructive pulmonary disease) ([facility]) Diabetes mellitus ([facility]) TYPE 2 Essential tremor Fall down stairs 04/14/2020 History of pneumonia Hyperlipidemia Hypertension Left carotid artery stenosis 03/30/2016 Leg cramps Leg heaviness MGUS (monoclonal gammopathy of unknown significance) Peptic ulcer disease PVD (peripheral vascular disease) ([facility]) Rhabdomyolysis 2010 Statin intolerance 04/01/2019 ??? Rhabdomyolysis in past. Stroke ([facility]) 2010 R side Past Surgical History: Procedure Laterality Date carotid angio 2010 HAND SURGERY Right 2009 IM NAILING FEMUR Right 04/07/2021 Procedure: RIGHT TFN; Surgeon: Dylon Galindo MD; Location: Main OR; Service: Orthopedic NE THROMBOENDARTECTMY NECK,NECK INCIS Right 2009 SHOULDER OPEN [...] Male Patient Information Primary Caregiver: Other (Comment) ([facility]) Admitted from [facility], positive for UTI, started on IV antibiotics. Plan is to return there at discharge. Spoke with admissions at [facility], he will need precert to return. PT/OT ordered. Source of Information: Patient, Significant Other Living Arrangements: Facility Support Systems: Spouse/significant other Assistance Needed: Moderate Type of Residence: [facility] Care Facility Name: [facility] Prior to Admission Home Care Services: Yes Type of Current Home Care Services: Home health care Patient expects to be discharged to:: [facility] Does the patient need discharge transport arranged?: Yes [facility] Disposition D/C Disposition: Care Home Facility Agency/Destination: [facility] Estimated Length of Stay (ELOS): 16 ELOS Discussed with Patient / Family?: Yes Associated Order(s): ED CONSULT TO MEDICAL - PLANT HEALTH CARE TECHNICIAN Mr. Elizalde was recently a patient here at [facility]. He was admitted on 04/[address] [facility] for continued rehab on 04/16. He has [...] in the ED. documented in this encounter [facility] 04-29-2021 History and physical note Internal Medicine Inpatient H&P 04/29/2021 Bryce Alvarez MD [facility] Patient: Stevo Elizalde Date of : [...] disease, with long-term current use of insulin ([facility]) Assessment & Plan Monitor blood sugar. Essential hypertension Assessment & Plan Blood pressure not under control added nifedipine. Anemia due to stage 3a chronic kidney disease ([facility]) Assessment & Plan Monitor hemoglobin. Urinary tract infection associated with indwelling urethral catheter ([facility]) Assessment & Plan Source of sepsis. Plan [...] is a 71 y.o. male presenting from [facility] with complaint of decreased level of consciousness and abnormal lab. Patient recently was discharged after meeting treatment for sepsis secondary to urinary tract infection that admission was complicated by a fall and femur fracture. Patient had surgery for the same and prolonged hospital course. On discharge patient was doing well at the [facility] had urology follow-up for urinary obstruction as [...] reviewed. Normal LV function No history of CA. Stage III renal insufficiency Remote history of CVA Follows with vascular. hospitalized in January of 2017 at [facility] in [place]. He had nausea and some abdominal pain, warm feeling from his head down through his body, perhaps some chest discomfo Arthritis Carotid artery occlusion CKD (chronic kidney disease) Stage III Closed fracture of left orbital floor ([facility]) 06/10/2020 Closed fracture of multiple ribs of left side 06/10/2020 COPD (chronic obstructive pulmonary disease) ([facility]) Diabetes mellitus ([facility]) TYPE 2 Essential tremor Fall down stairs 04/14/2020 History of pneumonia Hyperlipidemia Hypertension Left carotid artery stenosis 03/30/2016 Leg cramps Leg heaviness MGUS (monoclonal gammopathy of unknown significance) Peptic ulcer disease PVD (peripheral vascular disease) ([facility]) Rhabdomyolysis 2009 Statin intolerance 04/01/2019 ??? Rhabdomyolysis in past. Stroke ([facility]) 2010 R side Past Surgical History: Procedure Laterality Date carotid angio 2010 HAND SURGERY Right 2009 IM NAILING FEMUR Right 04/07/2021 Procedure: RIGHT TFN; Surgeon: Dylon Galindo MD; Location: Main OR; Service: Orthopedic NE THROMBOENDARTECTMY NECK,NECK INCIS Right 2009 SHOULDER OPEN [...] (60 mg total) by mouth daily . thirxgrg-yxcj-BR-calcium-mins 9 mg iron-400 mcg Tab, Take 1 [...] Laboratory, Microbiology, Radiology, Cardiology, Medications and Transcriptions [facility] Medicine Inpatient H&P 04/27/2021 Geraldine Reilly MD [facility] Patient: Stevo Elizalde Date of : 1950 (71 y.o.) PCP: Phyllis Mae MD Assessment Stevo Elizalde is a 71 y.o. male [facility] a [facility] is known for chronic kidney disease stage [...] a 71 y.o. male residing in a [facility] is known for chronic kidney disease stage [...] or vomiting. Again the patient's at the [facility] for [facility]. Patient presents with abnormal potassium [...] Peptic ulcer disease PVD (peripheral vascular disease) ([facility]) Rhabdomyolysis 2009 Stroke ([facility]) 2010 R side Past Surgical History: Procedure Laterality Date carotid angio 2010 HAND SURGERY Right 2009 IM NAILING FEMUR Right 04/07/2021 Procedure: RIGHT TFN; Surgeon: Dylon Galindo MD; Location: Main OR; Service: Orthopedic NE THROMBOENDARTECTMY NECK,NECK INCIS Right 2009 SHOULDER OPEN [...] (two) times a day with meals . aluyjdqm-zxij-NX-calcium-mins 9 mg iron-400 mcg Tab Take 1 [...] Reviewed 9:48 PM documented in this encounter [facility] 04-28-2021 Emergency department Note Provided update to [facility]. Returned to bed, medina changed per VO Dr. Peña. Emptied 900 ml slightly cloudy yellow urine from cath bag prior to changing. PT RIPPED OUT HIS IV AND TOOK HIMSELF OFF CARDIAC AND V/S MONITORING AGAIN, THIS RN REAPPLIED CARDIAC AND V/S MONITOR, REMINDED PT TO PLEASE LEAVE THAT ON AGAIN REAPPLIED RADIATION / CHEMISTRY TECHNICIAN PT TOOK OFF, THIS RN AND GORDO [...] from the original note were not included. [facility] EMERGENCY DEPARTMENT PCP - Phyllis Mae [...] abnormal potassium. Patient is residing at the [facility]. Patient presents by EMS squad for [...] or vomiting. Again the [facility]'s at the [facility] for [facility]. Patient presents with abnormal potassium MEDICAL DECISION MAKING This is a 71-year-old male from a [facility] multiple medical problems including history of CVA [...] ms QTC Calculation (Bezet) 390 ms P Mesa 65 degrees R Mesa 67 degrees T Mesa 77 degrees POC Venous Blood Gas Panel-Pulm [...] segments normal T Waves: T waves normal NE Interval: 182 QRS Interval: 84 QT Interval: [...] Stage III COPD (chronic obstructive pulmonary disease) ([facility]) Diabetes mellitus ([facility]) TYPE 2 Essential tremor History of pneumonia Hyperlipidemia Hypertension Left carotid artery stenosis 03/30/2016 Leg cramps Leg heaviness MGUS (monoclonal gammopathy of unknown significance) Peptic ulcer disease PVD (peripheral vascular disease) ([facility]) Rhabdomyolysis 2010 Stroke ([facility]) 2010 R side Past Surgical History Past Surgical History: Procedure Laterality Date carotid angio 2010 HAND SURGERY Right 2009 IM NAILING FEMUR Right 04/07/2021 Procedure: RIGHT TFN; Surgeon: Dylon Galindo MD; Location: Main OR; Service: Orthopedic NE THROMBOENDARTECTMY NECK,NECK INCIS Right 2009 SHOULDER OPEN [...] on file Occupational History Occupation: Disability Comment: [employer] Tobacco Use Smoking status: Current Every Day [...] Social History Narrative Pets: cat Positive PPD- 1976 Lives in two story home, takes care [...] Social Gatherings with Friends and Family: Attends Rastafari Services: Active Member of Clubs or Organizations: [...] date: Expected time: Means of arrival: Comments: [place] documented in this encounter [facility] 04-26-2021 History of Present illness Narrative Images from the original note were not included. Progress Note [facility] [address] [facility] [address] [place] [id number] [facility] 04/26/2021 Kateryna Yeboah CNP Provider Location:[facility] Patient Location Smoke Chaser: None Patient Location: [facility] (OR) Patient: Stevo Elizalde Date of : 1950 (71 y.o. male) PCP: Phyllis Mae MD [facility] [place] is a 71-year-old patient with a history [...] Peptic ulcer disease PVD (peripheral vascular disease) ([facility]) Rhabdomyolysis 2010 Stroke ([facility]) 2010 R side Review of Systems Positives [...] by contextual derivation. documented in this encounter [facility] 04-20-2021 History of Present illness Narrative Images from the original note were not included. Progress Note [facility] [address] [facility] [address] [place] [address] Physician Group 04/19/2021 Kateryna Yeboah CNP Provider Location:[facility] Patient Location Smoke Chaser: None Patient Location: [facility] (OR) Patient: Stevo Elizalde Date of : 1950 [...] Stage III COPD (chronic obstructive pulmonary disease) ([facility]) Diabetes mellitus ([facility]) TYPE 2 Essential tremor History of pneumonia Hyperlipidemia Hypertension Left carotid artery stenosis 03/30/2016 Leg cramps Leg heaviness MGUS (monoclonal gammopathy of unknown significance) Peptic ulcer disease PVD (peripheral vascular disease) ([facility]) Rhabdomyolysis 2010 Stroke ([facility]) 2010 R side Review of Systems Positives [...] disease, with long-term current use of insulin ([facility]) Respiratory Chronic obstructive pulmonary disease (HCC) Cardiovascular [...] by contextual derivation. documented in this encounter [facility] 04-20-2021 Evaluation note Diagnosis Anemia due to [...] history of fall documented in this encounter [id number] History of Present illness Narrative* Kateryna Yeboah CNP - 04/05/2021 2:18 PM EDT Progress Note [address] [facility] [address] [place] [address] Physician Group 04/05/2021 Kateryna Yeboah CNP Provider Location:[facility] Patient Location Smoke Chaser: None Patient Location: [facility] (OR) Patient: Stevo Elizalde Date of : 1950 [...] is requesting that patient either be sent [facility] or have x-rays completed. X-ray of right hip was ordered patient is tender to to palpation over the right greater trochanter. No gross abnormalities noted to right hip. Aside from above-noted patient currently denies any concerns. He is sitting up in the recliner he follows simple commands. PERRLA intact. He has bilateral equal grasps. Patient was treated previously at OR for acute rising creatinine. Creatinine elevated to 3.17 was noted that patient was unable to void Medina catheter was placed with greater than 500 mL output. Creatinine has subsequently improved we will continue to monitor. Patient will need referral to urology. Staff did notify later in day patient was pointing at things that were not present. I did call intofacility where staff reports that VS are stable. [...] Peptic ulcer disease PVD (peripheral vascular disease) ([facility]) Rhabdomyolysis 2010 Stroke ([facility]) 2010 R side Review of Systems Positives [...] extrapolated by contextual derivation. documented in this [id number] History of Present illness Narrative* Dylon Galindo MD - 03/24/2021 6:02 PM EDT Dictation on: 03/24/2021 6:02 PM by: DYLON GALINDO [[id number]] documented in this [id number] History of Present illness Narrative* Kateryna Yeboah CNP - 03/22/2021 3:46 PM EDT Progress Note [facility] [address] [place] [address] [facility] [address] [place] [address] Physician Group 03/22/2021 Kateryna Yeboah CNP Provider Location:[facility] Patient Location Smoke Chaser: None Patient Location: [facility] (OR) Patient: Stevo Elizalde Date of : 1950 [...] Stage III COPD (chronic obstructive pulmonary disease) ([facility]) Diabetes mellitus ([facility]) TYPE 2 Essential tremor History of pneumonia Hyperlipidemia Hypertension Leg cramps Leg heaviness MGUS (monoclonal gammopathy of unknown significance) Peptic ulcer disease PVD (peripheral vascular disease) ([facility]) Rhabdomyolysis 2010 Stroke ([facility]) 2010 R side Review of Systems Positives [...] extrapolated by contextual derivation. documented in this [id number] History of Present illness Narrative* Kateryna Yeboah CNP - 03/15/2021 9:21 PM EDT Progress Note [address] [facility] [address] [place] [address] Physician Group 03/15/2021 Kateryna Yeboah CNP Provider Location:[facility] Patient Location Smoke Chaser: None Patient Location: [facility] ([place]) Patient: Stevo Elizalde Date of : 1950 [...] did have some delirium when presenting to [facility]. After review of hospital records it does [...] Stage III COPD (chronic obstructive pulmonary disease) ([facility]) Diabetes mellitus ([facility]) TYPE 2 Essential tremor History of pneumonia Hyperlipidemia Hypertension Leg cramps Leg heaviness MGUS (monoclonal gammopathy of unknown significance) Peptic ulcer disease PVD (peripheral vascular disease) ([facility]) Rhabdomyolysis 2010 Stroke ([facility]) 2010 R side Review of Systems Positives [...] date is 21 days [facility]. Obtain CBC, CMP, magnesium, hemoglobin A1c, [...] Chart and in [facility]. Kateryna Yeboah, TELEPHONE MECHANIC This note is created with the assistance of a speech-recognition program. While intending to generate a document that actually reflects the content of the visit, the document can still have some errors including those of syntax and sound a- like substitutions which may escape proofreading. In such instances, actual meaning can be extrapolated by contextual derivation. documented in this [id number] History of Present illness NarrativeMED REFILL. F/U AFTER HOSPITAL STAY ([facility] , 4 TIMES WITHIN LAST 3 MONTHS [...] OR TRAMADOL FOR PAIN .HAS F/U WITH [facility] AND ENDO AND ORTHOPEDICS . .PER PT AND HE QUIT ETOH SINCE HOSPITAL STAY.AND CUT BACK ON SMOKING . HAS POOR APPETITE, WEIGHT LOSS , CHRONIC FATIGUE. STOPPED USING THE O2FOR HYPOXEMIA HOME HEALTH EVALUATIONS (WAS D/C FROM OR ON HOME HEALTH) .CURRENTLY HAS HOME HEALTH AND GETS PHYSICAL TX AT HOME. AORTIC ANEURYSM AND DEPRESSION/ ANXIETY HAVE BEEN STABLE. [facility] Work Phone: [phone] History of Present illness NarrativeMED REFILL. F/U AFTER HOSPITAL STAY ([facility] , 4 TIMES WITHIN LAST 3 MONTHS [...] OR TRAMADOL FOR PAIN .HAS F/U WITH [facility] AND ENDO AND ORTHOPEDICS . .PER PT AND HE QUIT ETOH SINCE HOSPITAL STAY.AND CUT BACK ON SMOKING . HAS POOR APPETITE, WEIGHT LOSS , CHRONIC FATIGUE. STOPPED USING THE O2FOR HYPOXEMIA HOME HEALTH EVALUATIONS (WAS D/C FROM OR ON HOME HEALTH) .CURRENTLY HAS HOME HEALTH AND GETS PHYSICAL TX AT HOME. AORTIC ANEURYSM AND DEPRESSION/ ANXIETY HAVE BEEN STABLE. [facility] Work Phone: [phone] History of Present illness NarrativeF/U ON CAROTID DOPPLER AND U/S OF ABDOMINAL AORTA. . DIDN'T FINISH THE PHYSICAL TX LAST YEAR. HAS B/L LEG WEAKNESS . HAD NO RECENT FALLS.. PT IS ASYMPTOMATIC WITH HAVING VASCULAR MYELOPATHY , COPD HAS BEEN STABLE.. STILL DRINKS ETOH, BUT LESS FREQUENT.[facility] Work Phone: [phone] Telephone encounter Note* Telephone Encounter - Armand Can MA - 05/07/2019 8:05 AM EDT This medication was d/c 10/2017. Refused this medication. [id number] Miscellaneous Notes* Telephone Encounter - Armand Can MA - 05/07/2019 8:05 AM EDT This medication was d/c 10/2017. Refused this medication. documented in this [id number] History of Present illness NarrativeXR AND LAB F/U. HAS CHRONIC LOW BACK PAIN AND NECK PAIN 6-05/08 ON AND OFF.(WAS REFERRED TO PAIN SPECIALIST [...] ETOH ABUSE , QUIT SINCE LAST HOSPITAL STAY.[facility] Work Phone: [phone] History of Present illness Narrative INSOMNIA , OTC MELATONIN DOESN'T HELP.. TREMOR OF HANDS .CHRONIC LOW BACK PAIN 5-6 , WAS REFERRED TO PAIN SPECIALIST EARLIER . CURRENTLY GETS PHYSICAL TX . WEIGHT GAIN, APPETITE IS IMPROVING .PT FEELS MUCH BETTER COMPARED TO LAST VISIT. HAS CHRONIC STABLE ANGINA AND HAS CARDIO F/U. THORACIC ARTERY ANEURYSM AND PVD HAVE BEEN STABLE . CLAUDICATION IS IMPROVING. 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 PT CUT BACK ON ETOH AND SMOKING , BUT HASN'T COMPLETELY STOPPED THEM YET .PT IS HERE WITH .-[facility] Work Phone: [phone] History of Present illness NarrativeCHEST PAIN B/L WITH RADIATIONS TO L ARM WITH SEVERITY OF 5/10 LASTING AROUND 5 MINUTES ON AND OFF XSEVERAL WEEKS. NOTHING MAKES THE PAIN BETTER OR WORSE. HAS OC IN 1 WEEK WITH [facility] AND WANT TO WAIT UNTIL THAT VISIT FOR CARDIAC EVALUATIONS. HAS EPIGASTRIC ABDOMINAL PAIN 4-5/10 ON AND OFF X SEVERAL WEEKS. NEEDS NEBULIZER MASK AND TUBE. NEEDS FLU SHOT TODAY.[facility] Work Phone: Evaluation note* Diagnosis Claudication of lower extremity ([facility])- [facility] Diagnosis Chronic obstructive pulmonary disease, unspecified COPD type ([facility])- Primary PVD (peripheral vascular disease) ([facility]) Unspecified peripheral vascular disease PAD (peripheral artery disease) ([facility]) Unspecified peripheral vascular disease Closed fracture of right hip with routine healing, subsequent encounter Tobacco use Type 2 diabetes mellitus with other specified complication, with long-term current use of insulin ([facility]) [facility] Diagnosis Type 2 diabetes mellitus with other specified complication, with long-term current use of insulin ([facility])- Primary [facility]* Diagnosis Closed displaced fracture of greater trochanter of right femur with routine healing, subsequent encounter- Primary [facility]* Diagnosis Type 2 diabetes mellitus with other specified complication, with long-term current use of insulin ([facility])- Primary Chronic obstructive pulmonary disease, unspecified COPD type ([facility]) Closed fracture of right hip with routine healing, subsequent encounter Urinary retention Unspecified retention of urine History of fall Personal history of fall History of cerebrovascular accident Transient ischemic attack (TIA), and cerebral infarction without residual deficits [facility] Diagnosis Urinary retention- Primary Unspecified retention of urine [facility] Diagnosis Type 2 diabetes mellitus with stage 3b chronic kidney disease, with long-term current use of insulin ([facility])- Primary Elevated serum creatinine Other nonspecific findings on examination of blood Urinary retention Unspecified retention of urine [facility]* Diagnosis Acute renal failure superimposed on chronic kidney disease, unspecified CKD stage, unspecified acute renal failure type ([facility]) Hyperkalemia Hyperpotassemia Acute UTI Urinary tract infection, site not specified H/O: CVA (cerebrovascular accident) Metabolic encephalopathy Neck pain Cervicalgia PAD (peripheral artery disease) ([facility]) Unspecified peripheral vascular disease PVD (peripheral vascular disease) ([facility]) Unspecified peripheral vascular disease Type 2 diabetes mellitus with stage 3b chronic kidney disease, with long-term current use of insulin ([facility]) Essential hypertension Unspecified essential hypertension ELBA (acute kidney injury) ([facility]) Closed displaced intertrochanteric fracture of right femur with routine healing, subsequent encounter Sepsis with acute renal failure without septic shock ([facility]) Anemia due to stage 3a chronic kidney disease ([facility]) Urinary tract infection associated with indwelling urethral catheter ([facility]) Urinary retention Unspecified retention of urine Chronic obstructive pulmonary disease ([facility]) [facility] Diagnosis Closed displaced fracture of greater trochanter of right femur with routine healing, subsequent encounter- Primary [facility]* Diagnosis Type 2 diabetes mellitus with stage 3b chronic kidney disease, with long-term current use of insulin ([facility])- Primary Essential hypertension Unspecified essential hypertension [facility]* Diagnosis Closed displaced fracture of greater trochanter of right femur with routine healing, subsequent encounter- Primary [facility]* Diagnosis Type 2 diabetes mellitus without complications ([facility]) [facility] Diagnosis Type 2 diabetes mellitus with stage 3b chronic kidney disease, with long-term current use of insulin ([facility])- Primary [facility]* Diagnosis GREEN (dyspnea on exertion)- Primary Other dyspnea and respiratory abnormality [facility]* Diagnosis Type 2 diabetes mellitus with stage 3b chronic kidney disease, with long-term current use of insulin ([facility])- Primary Essential hypertension Unspecified essential hypertension [facility]* Diagnosis Essential tremor- Primary Cough syncope Cough [facility]* Diagnosis Non-pressure chronic ulcer of left lower leg, limited to breakdown of skin ([facility])- Primary [facility]* Diagnosis Rib pain- Primary Unspecified chest pain Stenosis of left carotid artery Occlusion and stenosis of carotid artery without mention of cerebral infarction Hyperlipidemia, unspecified hyperlipidemia type Gastro-esophageal reflux disease without esophagitis Superficial gastritis without hemorrhage, unspecified chronicity Pulmonary emphysema, unspecified emphysema type ([facility]/HCC) CRF (chronic renal failure), stage 3 (moderate) ([facility]/HCC) Hypertension associated with type 2 diabetes mellitus ([facility]/HCC) Type 2 diabetes mellitus without complication, with long-term current use of insulin (CMS/HCC) Other fatigue Screening for prostate cancer Special screening for malignant neoplasm of prostate Vascular myelopathies ([facility]/HCC) Vascular myelopathies Depression, major, in remission (CMS/HCC) Chronic stable angina ([facility]/HCC) Chronic shortness of breath Hepatic steatosis Other chronic nonalcoholic liver disease H/O fall Abdominal pain, LUQ Abdominal pain, RUQ documented in this encounter [facility] Work Phone: Evaluation note* Diagnosis 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HCC)- Primary Essential tremor Cough syncope Cough Mild cognitive impairment Mild cognitive impairment, so stated [facility]* Diagnosis Type 2 diabetes mellitus with stage 3b chronic kidney disease, with long-term current use of insulin ([facility])- Primary [facility]* Diagnosis Essential hypertension- Primary Unspecified essential hypertension Tobacco use Dyslipidemia Other and unspecified hyperlipidemia History of cerebrovascular accident Transient ischemic attack (TIA), and cerebral infarction without residual deficits Chronic obstructive pulmonary disease, unspecified COPD type ([facility]) Musculoskeletal chest pain Other chest pain Essential tremor [facility]* Diagnosis Type 2 diabetes mellitus with hyperglycemic coma ([facility])- Primary Hyperlipidemia, unspecified hyperlipidemia type Need for influenza vaccination Need for prophylactic vaccination and inoculation against influenza Chronic obstructive pulmonary disease, unspecified COPD type ([facility]/HCC) H/O: CVA (cerebrovascular accident) Essential tremor Encounter for vaccination Hypertriglyceridemia Pure hyperglyceridemia documented in this [facility] Work Phone: Evaluation note* Diagnosis Atypical parkinsonism- Primary Diabetic polyneuropathy associated with type 2 diabetes mellitus (HCC) Essential tremor Mild cognitive impairment Mild cognitive impairment, so stated [facility]* Diagnosis Type 2 diabetes mellitus with stage 3b chronic kidney disease, with long-term current use of insulin ([facility])- Primary Dyslipidemia Other and unspecified hyperlipidemia Essential hypertension Unspecified essential hypertension [facility]* Diagnosis Hypertension associated with type 2 diabetes mellitus ([facility]/HCC)- Primary Type 2 diabetes mellitus with other circulatory complication, with long-term current use of insulin ([facility]/HCC) Gait difficulty Abnormality of gait Muscle weakness of lower extremity Muscle weakness (generalized) Recurrent falls Centrilobular emphysema ([facility]) Screening for prostate cancer Special screening for malignant neoplasm of prostate Hypertriglyceridemia Pure hyperglyceridemia Anemia, unspecified type Non-pressure chronic ulcer of other part of right foot with fat layer exposed ([facility]) Vascular myelopathies ([facility]/HCC) Vascular myelopathies Depression, major, in remission ([facility]) Thoracic aortic aneurysm without rupture, unspecified part ([facility]) Stage 3b chronic kidney disease ([facility]) Stable angina pectoris Calculus of gallbladder without cholecystitis without obstruction documented in this encounter [facility] Work Phone: Evaluation note* Diagnosis Diabetic foot (HCC)- Primary Type II or unspecified type diabetes mellitus with other specified manifestations, not stated as uncontrolled PVD (peripheral vascular disease) ([facility]) Unspecified peripheral vascular disease Type 2 diabetes mellitus with stage 3b chronic kidney disease, with long-term current use of insulin ([facility]) Claudication of lower extremity ([facility]) Tobacco use Xerosis of skin Onychodystrophy Other specified disease of nail Onychomycosis Dermatophytosis of nail Toe pain, bilateral [facility]* Diagnosis Type 2 diabetes mellitus with stage 3b chronic kidney disease, with long-term current use of insulin ([facility])- Primary [facility]* Diagnosis Type 2 diabetes mellitus with stage 3b chronic kidney disease, with long-term current use of insulin ([facility]) [facility] Diagnosis Hypotension, unspecified hypotension type- Primary Upper respiratory tract infection, unspecified type documented in this encounter [facility] Work Phone: Evaluation note* Diagnosis Routine general medical examination at health care facility- Primary Routine general medical examination at a health care facility Superficial gastritis without hemorrhage, unspecified chronicity Weakness of upper extremity Weakness of both lower extremities Recurrent falls Neck pain Cervicalgia H/O: CVA (cerebrovascular accident) Essential tremor Neurogenic claudication Spinal stenosis of lumbar region Stable angina pectoris ([facility]) Hypertension associated with type 2 diabetes mellitus (Multi) Encounter for vaccination 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Multi) Hypotensive episode documented in this encounter [facility] Work Phone: Evaluation note* Diagnosis Diabetic foot (HCC)- Primary Type II or unspecified type diabetes mellitus with other specified manifestations, not stated as uncontrolled PVD (peripheral vascular disease) ([facility]) Unspecified peripheral vascular disease Type 2 diabetes mellitus with stage 3b chronic kidney disease, with long-term current use of insulin ([facility]) Claudication of lower extremity ([facility]) Tobacco use Xerosis of skin Onychodystrophy Other specified disease of nail Onychomycosis Dermatophytosis of nail Toe pain, bilateral [facility]* Diagnosis Type 2 diabetes mellitus with stage 3b chronic kidney disease, with long-term current use of insulin ([facility])- Primary [facility] Diagnosis Ingrown toenail- Primary Ingrowing nail Paronychia of great toe PVD (peripheral vascular disease) ([facility]) Unspecified peripheral vascular disease Tobacco use Xerosis of skin Diabetic foot ([facility]) Type II or unspecified type diabetes mellitus with other specified manifestations, not stated as uncontrolled [facility] Diagnosis Onychodystrophy- Primary Other specified disease of nail Onychomycosis Dermatophytosis of nail PVD (peripheral vascular disease) ([facility]) Unspecified peripheral vascular disease Tobacco use Diabetic foot (HCC) Type II or unspecified type diabetes mellitus with other specified manifestations, not stated as uncontrolled Toe pain, bilateral [facility]* Diagnosis Bilateral carotid artery stenosis- Primary Occlusion and stenosis of carotid artery without mention of cerebral infarction PAD (peripheral artery disease) ([facility]) Unspecified peripheral vascular disease History of carotid endarterectomy Other postprocedural status Dyslipidemia Other and unspecified hyperlipidemia Claudication of lower extremity ([facility]) Neurogenic claudication- Primary Spinal stenosis of lumbar region PAD (peripheral artery disease) ([facility]) Unspecified peripheral vascular disease Claudication of lower extremity ([facility]) Bilateral carotid artery stenosis Occlusion and stenosis of carotid artery without mention of cerebral infarction History of carotid endarterectomy Other postprocedural status Occlusion and stenosis of right carotid artery Dyslipidemia Other and unspecified hyperlipidemia Fall, initial encounter- Primary Alcoholic intoxication with complication ([facility]) EtOH dependence ([facility]) Hyperkalemia Hyperpotassemia Acute renal failure superimposed on stage 4 chronic kidney disease, unspecified acute renal failure type ([facility]) Acute UTI Urinary tract infection, site not specified Closed displaced intertrochanteric fracture of right femur with routine healing, subsequent encounter Type 2 diabetes mellitus with stage 3b chronic kidney disease, with long-term current use of insulin ([facility]) Bilateral hip pain Pain in joint, pelvic region and thigh PVD (peripheral vascular disease) ([facility]) Unspecified peripheral vascular disease PAD (peripheral artery disease) ([facility]) Unspecified peripheral vascular disease Chronic obstructive pulmonary disease, unspecified COPD type ([facility]) Alcohol dependence with unspecified alcohol-induced disorder ([facility]) History of cerebrovascular accident Transient ischemic attack (TIA), and cerebral infarction without residual deficits History of fall Personal history of fall Acute renal failure superimposed on chronic kidney disease, unspecified CKD stage, unspecified acute renal failure type Hyperkalemia Hyperpotassemia Acute UTI Urinary tract infection, site not specified H/O: CVA (cerebrovascular accident) Metabolic encephalopathy Neck pain Cervicalgia PAD (peripheral artery disease) ([facility]) Unspecified peripheral vascular disease PVD (peripheral vascular disease) ([facility]) Unspecified peripheral vascular disease Type 2 diabetes mellitus with stage 3b chronic kidney disease, with long-term current use of insulin ([facility]) Essential hypertension Unspecified essential hypertension ELBA (acute kidney injury) ([facility]) Closed displaced intertrochanteric fracture of right femur with routine healing, subsequent encounter ELBA (acute kidney injury) ([facility]) Urinary tract infection associated with indwelling urethral catheter ([facility]) Urinary retention Unspecified retention of urine COPD exacerbation ([facility])- Primary Obstructive chronic bronchitis with exacerbation Acute exacerbation of chronic obstructive pulmonary disease (COPD) ([facility]) Obstructive chronic bronchitis with exacerbation Chronic kidney disease, unspecified CKD stage Fall Unspecified fall Rib pain on left side Acute hypoxemic respiratory failure ([facility]) Stage 3b chronic kidney disease ([facility]) Type 2 diabetes mellitus with stage 3b chronic kidney disease, with long-term current use of insulin ([facility]) PVD (peripheral vascular disease) ([facility]) Unspecified peripheral vascular disease Neurogenic claudication Spinal stenosis of lumbar region Dyslipidemia Other and unspecified hyperlipidemia Anemia due to stage 3a chronic kidney disease ([facility]) Essential hypertension Unspecified essential hypertension Essential tremor Musculoskeletal chest pain Other chest pain Type 2 diabetes mellitus with stage 3b chronic kidney disease, with long-term current use of insulin ([facility])- Primary Dyslipidemia Other and unspecified hyperlipidemia Essential hypertension Unspecified essential hypertension [facility] Bilateral carotid artery stenosis- Primary Occlusion and stenosis of carotid artery without mention of cerebral infarction PAD (peripheral artery disease) ([facility]) Unspecified peripheral vascular disease History of carotid endarterectomy Other postprocedural status Dyslipidemia Other and unspecified hyperlipidemia Claudication of lower extremity ([facility]) Neurogenic claudication- Primary Spinal stenosis of lumbar region PAD (peripheral artery disease) ([facility]) Unspecified peripheral vascular disease Claudication of lower extremity ([facility]) Bilateral carotid artery stenosis Occlusion and stenosis of carotid artery without mention of cerebral infarction History of carotid endarterectomy Other postprocedural status Occlusion and stenosis of right carotid artery Dyslipidemia Other and unspecified hyperlipidemia Fall, initial encounter- Primary Alcoholic intoxication with complication ([facility]) EtOH dependence ([facility]) Hyperkalemia Hyperpotassemia Acute renal failure superimposed on stage 4 chronic kidney disease, unspecified acute renal failure type ([facility]) Acute UTI Urinary tract infection, site not specified Closed displaced intertrochanteric fracture of right femur with routine healing, subsequent encounter Type 2 diabetes mellitus with stage 3b chronic kidney disease, with long-term current use of insulin ([facility]) Bilateral hip pain Pain in joint, pelvic region and thigh PVD (peripheral vascular disease) ([facility]) Unspecified peripheral vascular disease PAD (peripheral artery disease) ([facility]) Unspecified peripheral vascular disease Chronic obstructive pulmonary disease, unspecified COPD type ([facility]) Alcohol dependence with unspecified alcohol-induced disorder ([facility]) History of cerebrovascular accident Transient ischemic attack (TIA), and cerebral infarction without residual deficits History of fall Personal history of fall Acute renal failure superimposed on chronic kidney disease, unspecified CKD stage, unspecified acute renal failure type Hyperkalemia Hyperpotassemia Acute UTI Urinary tract infection, site not specified H/O: CVA (cerebrovascular accident) Metabolic encephalopathy Neck pain Cervicalgia PAD (peripheral artery disease) ([facility]) Unspecified peripheral vascular disease PVD (peripheral vascular disease) ([facility]) Unspecified peripheral vascular disease Type 2 diabetes mellitus with stage 3b chronic kidney disease, with long-term current use of insulin ([facility]) Essential hypertension Unspecified essential hypertension ELBA (acute kidney injury) ([facility]) Closed displaced intertrochanteric fracture of right femur with routine healing, subsequent encounter ELBA (acute kidney injury) ([facility]) Urinary tract infection associated with indwelling urethral catheter ([facility]) Urinary retention Unspecified retention of urine COPD exacerbation ([facility])- Primary Obstructive chronic bronchitis with exacerbation Acute exacerbation of chronic obstructive pulmonary disease (COPD) ([facility]) Obstructive chronic bronchitis with exacerbation Chronic kidney [...] Unspecified essential hypertension PVD (peripheral vascular disease) ([facility]) Unspecified peripheral vascular disease documented in this encounter [facility] note* Diagnosis Bilateral carotid artery stenosis- Primary Occlusion and stenosis of carotid artery without mention of cerebral infarction PAD (peripheral artery disease) ([facility]) Unspecified peripheral vascular disease History of carotid endarterectomy Other postprocedural status Dyslipidemia Other and unspecified hyperlipidemia Claudication of lower extremity ([facility]) Neurogenic claudication- Primary Spinal stenosis of lumbar region PAD (peripheral artery disease) ([facility]) Unspecified peripheral vascular disease Claudication of lower extremity ([facility]) Bilateral carotid artery stenosis Occlusion and stenosis of carotid artery without mention of cerebral infarction History of carotid endarterectomy Other postprocedural status Occlusion and stenosis of right carotid artery Dyslipidemia Other and unspecified hyperlipidemia Fall, initial encounter- Primary Alcoholic intoxication with complication (HCC) EtOH dependence ([facility]) Hyperkalemia Hyperpotassemia Acute renal failure superimposed on [...] region and thigh PVD (peripheral vascular disease) (HCC) Unspecified peripheral vascular disease PAD (peripheral artery disease) ([facility]) Unspecified peripheral vascular disease Chronic obstructive pulmonary disease, unspecified COPD type ([facility]) Alcohol dependence with unspecified alcohol-induced disorder ([facility]) History of cerebrovascular accident Transient ischemic attack (TIA), and cerebral infarction without residual deficits History of fall Personal history of fall Acute renal failure superimposed on chronic kidney disease, unspecified CKD stage, unspecified acute renal failure type Hyperkalemia Hyperpotassemia Acute UTI Urinary tract infection, site not specified H/O: CVA (cerebrovascular accident) Metabolic encephalopathy Neck pain Cervicalgia PAD (peripheral artery disease) ([facility]) Unspecified peripheral vascular disease PVD (peripheral vascular disease) ([facility]) Unspecified peripheral vascular disease Type 2 diabetes mellitus with stage 3b chronic kidney disease, with long-term current use of insulin ([facility]) Essential hypertension Unspecified essential hypertension ELBA (acute kidney injury) ([facility]) Closed displaced intertrochanteric fracture of right femur with routine healing, subsequent encounter ELBA (acute kidney injury) ([facility]) Urinary tract infection associated with indwelling urethral catheter ([facility]) Urinary retention Unspecified retention of urine COPD exacerbation ([facility])- Primary Obstructive chronic bronchitis with exacerbation Acute exacerbation of chronic obstructive pulmonary disease (COPD) ([facility]) Obstructive chronic bronchitis with exacerbation Chronic kidney disease, unspecified CKD stage Fall Unspecified fall Rib pain on left side Acute hypoxemic respiratory failure ([facility]) Stage 3b chronic kidney disease ([facility]) Type 2 diabetes mellitus with stage 3b chronic kidney disease, with long-term current use of insulin ([facility]) PVD (peripheral vascular disease) ([facility]) Unspecified peripheral vascular disease Neurogenic claudication Spinal stenosis of lumbar region Dyslipidemia Other and unspecified hyperlipidemia Anemia due to stage 3a chronic kidney disease ([facility]) Essential hypertension Unspecified essential hypertension Essential tremor Chest pain, unspecified type- Primary History of CVA (cerebrovascular accident) Transient ischemic attack (TIA), and cerebral infarction without residual deficits Essential hypertension Unspecified essential hypertension PVD (peripheral vascular disease) ([facility]) Unspecified peripheral vascular disease Type 2 diabetes mellitus with stage 3b chronic kidney disease, with long-term current use of insulin ([facility])- [facility] Diagnosis Bilateral carotid artery stenosis- Primary Occlusion and stenosis of carotid artery without mention of cerebral infarction PAD (peripheral artery disease) ([facility]) Unspecified peripheral vascular disease History of carotid endarterectomy Other postprocedural status Dyslipidemia Other and unspecified hyperlipidemia Claudication of lower extremity ([facility]) Neurogenic claudication- Primary Spinal stenosis of lumbar region PAD (peripheral artery disease) ([facility]) Unspecified peripheral vascular disease Claudication of lower extremity ([facility]) Bilateral carotid artery stenosis Occlusion and stenosis of carotid artery without mention of cerebral infarction History of carotid endarterectomy Other postprocedural status Occlusion and stenosis of right carotid artery Dyslipidemia Other and unspecified hyperlipidemia Fall, initial encounter- Primary Alcoholic intoxication with complication ([facility]) EtOH dependence ([facility]) Hyperkalemia Hyperpotassemia Acute renal failure superimposed on stage 4 chronic kidney disease, unspecified acute renal failure type (HCC) Acute UTI Urinary tract infection, site not specified Closed displaced intertrochanteric fracture of right femur with routine healing, subsequent encounter Type 2 diabetes mellitus with stage 3b chronic kidney disease, with long-term current use of insulin ([facility]) Bilateral hip pain Pain in joint, pelvic region and thigh PVD (peripheral vascular disease) ([facility]) Unspecified peripheral vascular disease PAD (peripheral artery disease) ([facility]) Unspecified peripheral vascular disease Chronic obstructive pulmonary disease, unspecified COPD type ([facility]) Alcohol dependence with unspecified alcohol-induced disorder ([facility]) History of cerebrovascular accident Transient ischemic attack (TIA), and cerebral infarction without residual deficits History of fall Personal history of fall Acute renal failure superimposed on chronic kidney disease, unspecified CKD stage, unspecified acute renal failure type Hyperkalemia Hyperpotassemia Acute UTI Urinary tract infection, site not specified H/O: CVA (cerebrovascular accident) Metabolic encephalopathy Neck pain Cervicalgia PAD (peripheral artery disease) ([facility]) Unspecified peripheral vascular disease PVD (peripheral vascular disease) ([facility]) Unspecified peripheral vascular disease Type 2 diabetes mellitus with stage 3b chronic kidney disease, with long-term current use of insulin ([facility]) Essential hypertension Unspecified essential hypertension ELBA (acute kidney injury) ([facility]) Closed displaced intertrochanteric fracture of right femur with routine healing, subsequent encounter ELBA (acute kidney injury) ([facility]) Urinary tract infection associated with indwelling urethral catheter ([facility]) Urinary retention Unspecified retention of urine COPD exacerbation ([facility])- Primary Obstructive chronic bronchitis with exacerbation Acute exacerbation of chronic obstructive pulmonary disease (COPD) ([facility]) Obstructive chronic bronchitis with exacerbation Chronic kidney disease, unspecified CKD stage Fall Unspecified fall Rib pain on left side Acute hypoxemic respiratory failure ([facility]) Stage 3b chronic kidney disease ([facility]) Type 2 diabetes mellitus with stage 3b chronic kidney disease, with long-term current use of insulin ([facility]) PVD (peripheral vascular disease) ([facility]) Unspecified peripheral vascular disease Neurogenic claudication Spinal stenosis of lumbar region Dyslipidemia Other and unspecified hyperlipidemia Anemia due to stage 3a chronic kidney disease ([facility]) Essential hypertension Unspecified essential hypertension Essential tremor Chest pain, unspecified type- Primary History of CVA (cerebrovascular accident) Transient ischemic attack (TIA), and cerebral infarction without residual deficits Essential hypertension Unspecified essential hypertension PVD (peripheral vascular disease) ([facility]) Unspecified peripheral vascular disease Onychodystrophy- Primary Other specified disease of nail Onychomycosis Dermatophytosis of nail PVD (peripheral vascular disease) ([facility]) Unspecified peripheral vascular disease Tobacco use Diabetic foot ([facility]) Type II or unspecified type diabetes mellitus with other specified manifestations, not stated as uncontrolled Xerosis of skin documented in this encounter [facility] note* Diagnosis Bilateral carotid artery stenosis- Primary Occlusion and stenosis of carotid artery without mention of cerebral infarction PAD (peripheral artery disease) ([facility]) Unspecified peripheral vascular disease History of carotid endarterectomy Other postprocedural status Dyslipidemia Other and unspecified hyperlipidemia Claudication of lower extremity ([facility]) Neurogenic claudication- Primary Spinal stenosis of lumbar region PAD (peripheral artery disease) ([facility]) Unspecified peripheral vascular disease Claudication of lower extremity ([facility]) Bilateral carotid artery stenosis Occlusion and stenosis of carotid artery without mention of cerebral infarction History of carotid endarterectomy Other postprocedural status Occlusion and stenosis of right carotid artery Dyslipidemia Other and unspecified hyperlipidemia Fall, initial encounter- Primary Alcoholic intoxication with complication ([facility]) EtOH dependence ([facility]) Hyperkalemia Hyperpotassemia Acute renal failure superimposed on stage 4 chronic kidney disease, unspecified acute renal failure type ([facility]) Acute UTI Urinary tract infection, site not specified Closed displaced intertrochanteric fracture of right femur with routine healing, subsequent encounter Type 2 diabetes mellitus with stage 3b chronic kidney disease, with long-term current use of insulin ([facility]) Bilateral hip pain Pain in joint, pelvic region and thigh PVD (peripheral vascular disease) ([facility]) Unspecified peripheral vascular disease PAD (peripheral artery disease) ([facility]) Unspecified peripheral vascular disease Chronic obstructive pulmonary disease, unspecified COPD type ([facility]) Alcohol dependence with unspecified alcohol-induced disorder ([facility]) History of cerebrovascular accident Transient ischemic attack (TIA), and cerebral infarction without residual deficits History of fall Personal history of fall Acute renal failure superimposed on chronic kidney disease, unspecified CKD stage, unspecified acute renal failure type Hyperkalemia Hyperpotassemia Acute UTI Urinary tract infection, site not specified H/O: CVA (cerebrovascular accident) Metabolic encephalopathy Neck pain Cervicalgia PAD (peripheral artery disease) ([facility]) Unspecified peripheral vascular disease PVD (peripheral vascular disease) ([facility]) Unspecified peripheral vascular disease Type 2 diabetes mellitus with stage 3b chronic kidney disease, with long-term current use of insulin ([facility]) Essential hypertension Unspecified essential hypertension ELBA (acute kidney injury) ([facility]) Closed displaced intertrochanteric fracture of right femur with routine healing, subsequent encounter ELBA (acute kidney injury) ([facility]) Urinary tract infection associated with indwelling urethral catheter ([facility]) Urinary retention Unspecified retention of urine COPD exacerbation ([facility])- Primary Obstructive chronic bronchitis with exacerbation Acute exacerbation of chronic obstructive pulmonary disease (COPD) ([facility]) Obstructive chronic bronchitis with exacerbation Chronic kidney disease, unspecified CKD stage Fall Unspecified fall Rib pain on left side Acute hypoxemic respiratory failure ([facility]) Stage 3b chronic kidney disease ([facility]) Type 2 diabetes mellitus with stage 3b chronic kidney disease, with long-term current use of insulin ([facility]) PVD (peripheral vascular disease) ([facility]) Unspecified peripheral vascular disease Neurogenic claudication Spinal stenosis of lumbar region Dyslipidemia Other and unspecified hyperlipidemia Anemia due to stage 3a chronic kidney disease ([facility]) Essential hypertension Unspecified essential hypertension Essential tremor Chest pain, unspecified type- Primary History of CVA (cerebrovascular accident) Transient ischemic attack (TIA), and cerebral infarction without residual deficits Essential hypertension Unspecified essential hypertension PVD (peripheral vascular disease) ([facility]) Unspecified peripheral vascular disease History of carotid endarterectomy- Primary Other postprocedural status Stenosis of left carotid artery Occlusion and stenosis of carotid artery without mention of cerebral infarction Neurogenic claudication Spinal stenosis of lumbar region PAD (peripheral artery disease) ([facility]) Unspecified peripheral vascular disease Type 2 diabetes mellitus with stage 3b chronic kidney disease, with long-term current use of insulin ([facility]) Tobacco use [facility] Diagnosis Bilateral carotid artery stenosis- Primary Occlusion and stenosis of carotid artery without mention of cerebral infarction PAD (peripheral artery disease) ([facility]) Unspecified peripheral vascular disease History of carotid endarterectomy Other postprocedural status Dyslipidemia Other and unspecified hyperlipidemia Claudication of lower extremity ([facility]) Neurogenic claudication- Primary Spinal stenosis of lumbar region PAD (peripheral artery disease) ([facility]) Unspecified peripheral vascular disease Claudication of lower extremity ([facility]) Bilateral carotid artery stenosis Occlusion and stenosis of carotid artery without mention of cerebral infarction History of carotid endarterectomy Other postprocedural status Occlusion and stenosis of right carotid artery Dyslipidemia Other and unspecified hyperlipidemia Fall, initial encounter- Primary Alcoholic intoxication with complication ([facility]) EtOH dependence ([facility]) Hyperkalemia Hyperpotassemia Acute renal failure superimposed on stage 4 chronic kidney disease, unspecified acute renal failure type ([facility]) Acute UTI Urinary tract infection, site not specified Closed displaced intertrochanteric fracture of right femur with routine healing, subsequent encounter Type 2 diabetes mellitus with stage 3b chronic kidney disease, with long-term current use of insulin ([facility]) Bilateral hip pain Pain in joint, pelvic region and thigh PVD (peripheral vascular disease) ([facility]) Unspecified peripheral vascular disease PAD (peripheral artery disease) ([facility]) Unspecified peripheral vascular disease Chronic obstructive pulmonary disease, unspecified COPD type ([facility]) Alcohol dependence with unspecified alcohol-induced disorder ([facility]) History of cerebrovascular accident Transient ischemic attack (TIA), and cerebral infarction without residual deficits History of fall Personal history of fall Acute renal failure superimposed on chronic kidney disease, unspecified CKD stage, unspecified acute renal failure type Hyperkalemia Hyperpotassemia Acute UTI Urinary tract infection, site not specified H/O: CVA (cerebrovascular accident) Metabolic encephalopathy Neck pain Cervicalgia PAD (peripheral artery disease) ([facility]) Unspecified peripheral vascular disease PVD (peripheral vascular disease) ([facility]) Unspecified peripheral vascular disease Type 2 diabetes mellitus with stage 3b chronic kidney disease, with long-term current use of insulin ([facility]) Essential hypertension Unspecified essential hypertension ELBA (acute kidney injury) ([facility]) Closed displaced intertrochanteric fracture of right femur with routine healing, subsequent encounter ELBA (acute kidney injury) ([facility]) Urinary tract infection associated with indwelling urethral catheter ([facility]) Urinary retention Unspecified retention of urine COPD exacerbation ([facility])- Primary Obstructive chronic bronchitis with exacerbation Acute exacerbation of chronic obstructive pulmonary disease (COPD) ([facility]) Obstructive chronic bronchitis with exacerbation Chronic kidney disease, unspecified CKD stage Fall Unspecified fall Rib pain on left side Acute hypoxemic respiratory failure ([facility]) Stage 3b chronic kidney disease ([facility]) Type 2 diabetes mellitus with stage 3b chronic kidney disease, with long-term current use of insulin ([facility]) PVD (peripheral vascular disease) ([facility]) Unspecified peripheral vascular disease Neurogenic claudication Spinal stenosis of lumbar region Dyslipidemia Other and unspecified hyperlipidemia Anemia due to stage 3a chronic kidney disease ([facility]) Essential hypertension Unspecified essential hypertension Essential tremor Chest pain, unspecified type- Primary History of CVA (cerebrovascular accident) Transient ischemic attack (TIA), and cerebral infarction without residual deficits Essential hypertension Unspecified essential hypertension PVD (peripheral vascular disease) ([facility]) Unspecified peripheral vascular disease Type 2 diabetes mellitus with stage 3b chronic kidney disease, with long-term current use of insulin ([facility]) [facility] [...] prostate Vascular myelopathies Depression, major, in remission ([facility]) Chronic stable angina ([facility]) Chronic shortness of breath Hepatic steatosis Other [...] exposed Vascular myelopathies Depression, major, in remission ([facility]) Thoracic aortic aneurysm without rupture, unspecified part ([facility]) Stage 3b chronic kidney disease (Multi) Stable angina pectoris ([facility]) Calculus of gallbladder without cholecystitis without obstruction Routine general medical examination at health care facility- Primary Routine general medical examination at a health care facility Superficial gastritis without hemorrhage, unspecified chronicity Weakness of upper extremity Weakness of both lower extremities Recurrent falls Neck pain Cervicalgia H/O: CVA (cerebrovascular accident) Essential tremor Neurogenic claudication Spinal stenosis of lumbar region Stable angina pectoris ([facility]) Hypertension associated with type 2 diabetes mellitus ([facility]) Encounter for vaccination 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[facility]) Hypotensive episode Thrombocytopenia ([facility])- Primary Unspecified thrombocytopenia Chronic obstructive pulmonary disease, unspecified Megaloblastic anemia Unspecified deficiency anemia Folate deficiency Other B-complex deficiencies Fatigue, unspecified type CRF (chronic renal failure), stage 3 (moderate) ([facility]) Type 2 diabetes mellitus with hyperglycemia, with long-term current use of insulin documented in this encounter [facility] Work Phone: Evaluation note* Diagnosis Bilateral carotid artery stenosis- Primary Occlusion and stenosis of carotid artery without mention of cerebral infarction PAD (peripheral artery disease) ([facility]) Unspecified peripheral vascular disease History of carotid endarterectomy Other postprocedural status Dyslipidemia Other and unspecified hyperlipidemia Claudication of lower extremity ([facility]) Neurogenic claudication- Primary Spinal stenosis of lumbar region PAD (peripheral artery disease) ([facility]) Unspecified peripheral vascular disease Claudication of lower extremity ([facility]) Bilateral carotid artery stenosis Occlusion and stenosis of carotid artery without mention of cerebral infarction History of carotid endarterectomy Other postprocedural status Occlusion and stenosis of right carotid artery Dyslipidemia Other and unspecified hyperlipidemia Fall, initial encounter- Primary Alcoholic intoxication with complication ([facility]) EtOH dependence ([facility]) Hyperkalemia Hyperpotassemia Acute renal failure superimposed on stage 4 chronic kidney disease, unspecified acute renal failure type ([facility]) Acute UTI Urinary tract infection, site not specified Closed displaced intertrochanteric fracture of right femur with routine healing, subsequent encounter Type 2 diabetes mellitus with stage 3b chronic kidney disease, with long-term current use of insulin ([facility]) Bilateral hip pain Pain in joint, pelvic region and thigh PVD (peripheral vascular disease) Unspecified peripheral vascular disease PAD (peripheral artery disease) ([facility]) Unspecified peripheral vascular disease Chronic obstructive pulmonary disease, unspecified COPD type ([facility]) Alcohol dependence with unspecified alcohol-induced disorder ([facility]) History of cerebrovascular accident Transient ischemic attack (TIA), and cerebral infarction without residual deficits History of fall Personal history of fall Acute renal failure superimposed on chronic kidney disease, unspecified CKD stage, unspecified acute renal failure type Hyperkalemia Hyperpotassemia Acute UTI Urinary tract infection, site not specified H/O: CVA (cerebrovascular accident) Metabolic encephalopathy Neck pain Cervicalgia PAD (peripheral artery disease) ([facility]) Unspecified peripheral vascular disease PVD (peripheral vascular disease) Unspecified peripheral vascular disease Type 2 diabetes mellitus with stage 3b chronic kidney disease, with long-term current use of insulin ([facility]) Essential hypertension Unspecified essential hypertension ELBA (acute kidney injury) Closed displaced intertrochanteric fracture of right femur with routine healing, subsequent encounter ELBA (acute kidney injury) Urinary tract infection associated with indwelling urethral catheter ([facility]) Urinary retention Unspecified retention of urine COPD exacerbation ([facility])- Primary Obstructive chronic bronchitis with exacerbation Acute exacerbation of chronic obstructive pulmonary disease (COPD) ([facility]) Obstructive chronic bronchitis with exacerbation Chronic kidney [...] Thoracic aortic aneurysm without rupture, unspecified part (CMS-HCC) Stage 3b chronic kidney disease (Multi) Stable angina pectoris (CMS-HCC) Calculus of gallbladder without cholecystitis without obstruction Routine general medical examination at health care facility- Primary Routine general medical examination at a health care facility Superficial gastritis without hemorrhage, unspecified chronicity Weakness of upper extremity Weakness of both lower extremities Recurrent falls Neck pain Cervicalgia H/O: CVA (cerebrovascular accident) Essential tremor Neurogenic claudication Spinal stenosis of lumbar region Stable angina pectoris ([facility]) Hypertension associated with type 2 diabetes mellitus (Multi) Encounter for vaccination 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[facility]) Hypotensive episode Routine general medical examination at health care facility- Primary Routine general medical examination at a health care facility Chronic obstructive pulmonary disease, unspecified COPD type (Multi) Essential tremor Type 2 diabetes mellitus with hyperglycemia, with long-term current use of insulin Hypertension associated with type 2 diabetes mellitus (Multi) Mixed hyperlipidemia Thrombocytopenia ([facility]) Unspecified thrombocytopenia Folate deficiency Other B-complex deficiencies CRF (chronic renal failure), stage 3 (moderate) ([facility]) Chronic fatigue Other malaise and fatigue Anemia, unspecified type Weakness of both arms Other musculoskeletal symptoms referable to limbs Weakness of both legs Muscle weakness (generalized) Smoker Tobacco use disorder documented in this encounter [facility] Work Phone: Evaluation note* Diagnosis Bilateral carotid artery stenosis- Primary Occlusion and stenosis of carotid artery without mention of cerebral infarction PAD (peripheral artery disease) ([facility]) Unspecified peripheral vascular disease History of carotid endarterectomy Other postprocedural status Dyslipidemia Other and unspecified hyperlipidemia Claudication of lower extremity ([facility]) Neurogenic claudication- Primary Spinal stenosis of lumbar region PAD (peripheral artery disease) ([facility]) Unspecified peripheral vascular disease Claudication of lower extremity ([facility]) Bilateral carotid artery stenosis Occlusion and stenosis of carotid artery without mention of cerebral infarction History of carotid endarterectomy Other postprocedural status Occlusion and stenosis of right carotid artery Dyslipidemia Other and unspecified hyperlipidemia Fall, initial encounter- Primary Alcoholic intoxication with complication ([facility]) EtOH dependence ([facility]) Hyperkalemia Hyperpotassemia Acute renal failure superimposed on stage 4 chronic kidney disease, unspecified acute renal failure type ([facility]) Acute UTI Urinary tract infection, site not specified Closed displaced intertrochanteric fracture of right femur with routine healing, subsequent encounter Type 2 diabetes mellitus with stage 3b chronic kidney disease, with long-term current use of insulin ([facility]) Bilateral hip pain Pain in joint, pelvic region and thigh PVD (peripheral vascular disease) Unspecified peripheral vascular disease PAD (peripheral artery disease) ([facility]) Unspecified peripheral vascular disease Chronic obstructive pulmonary [...] tract infection associated with indwelling urethral catheter ([facility]) Urinary retention Unspecified retention of urine COPD exacerbation ([facility])- Primary Obstructive chronic bronchitis with exacerbation Acute exacerbation of chronic obstructive pulmonary disease (COPD) (HCC) Obstructive chronic bronchitis with exacerbation Chronic kidney disease, unspecified CKD stage Fall Unspecified fall Rib pain on left side Acute hypoxemic respiratory failure (HCC) Stage 3b chronic kidney disease (HCC) Type 2 diabetes mellitus with stage 3b chronic kidney disease, with long-term current use of insulin ([facility]) PVD (peripheral vascular disease) Unspecified peripheral vascular [...] insulin (HCC)- Primary [facility] Diagnosis [...] prostate Vascular myelopathies Depression, major, in remission ([facility]) Chronic stable angina ([facility]) Chronic shortness of breath Hepatic steatosis Other [...] exposed Vascular myelopathies Depression, major, in remission ([facility]) Thoracic aortic aneurysm without rupture, unspecified part ([facility]) Stage 3b chronic kidney disease (Multi) Stable angina pectoris ([facility]) Calculus of gallbladder without cholecystitis without obstruction Routine general medical examination at health care facility- Primary Routine general medical examination at a health care facility Chronic obstructive pulmonary disease, unspecified COPD type (Multi) Essential tremor Type 2 diabetes mellitus with hyperglycemia, with long-term current use of insulin Hypertension associated with type 2 diabetes mellitus (Multi) Mixed hyperlipidemia Thrombocytopenia ([facility]) Unspecified thrombocytopenia Folate deficiency Other B-complex deficiencies [...] Centrilobular emphysema (Multi) documented in this encounter [facility] Work Phone: Evaluation note* Diagnosis Bilateral carotid artery stenosis- Primary Occlusion and stenosis of carotid artery without mention of cerebral infarction PAD (peripheral artery disease) ([facility]) Unspecified peripheral vascular disease History of carotid endarterectomy Other postprocedural status Dyslipidemia Other and unspecified hyperlipidemia Claudication of lower extremity ([facility]) Neurogenic claudication- Primary Spinal stenosis of lumbar region PAD (peripheral artery disease) ([facility]) Unspecified peripheral vascular disease Claudication of lower extremity ([facility]) Bilateral carotid artery stenosis Occlusion and stenosis of carotid artery without mention of cerebral infarction History of carotid endarterectomy Other postprocedural status Occlusion and stenosis of right carotid artery Dyslipidemia Other and unspecified hyperlipidemia Fall, initial encounter- Primary Alcoholic intoxication with complication ([facility]) EtOH dependence ([facility]) Hyperkalemia Hyperpotassemia Acute renal failure superimposed on stage 4 chronic kidney disease, unspecified acute renal failure type ([facility]) Acute UTI Urinary tract infection, site not specified Closed displaced intertrochanteric fracture of right femur with routine healing, subsequent encounter Type 2 diabetes mellitus with stage 3b chronic kidney disease, with long-term current use of insulin ([facility]) Bilateral hip pain Pain in joint, pelvic region and thigh PVD (peripheral vascular disease) Unspecified peripheral vascular disease PAD (peripheral artery disease) ([facility]) Unspecified peripheral vascular disease Chronic obstructive pulmonary disease, unspecified COPD type ([facility]) Alcohol dependence with unspecified alcohol-induced disorder ([facility]) History of cerebrovascular accident Transient ischemic attack (TIA), and cerebral infarction without residual deficits History of fall Personal history of fall Acute renal failure superimposed on chronic kidney disease, unspecified CKD stage, unspecified acute renal failure type Hyperkalemia Hyperpotassemia Acute UTI Urinary tract infection, site not specified H/O: CVA (cerebrovascular accident) Metabolic encephalopathy Neck pain Cervicalgia PAD (peripheral artery disease) ([facility]) Unspecified peripheral vascular disease PVD (peripheral vascular disease) Unspecified peripheral vascular disease Type 2 diabetes mellitus with stage 3b chronic kidney disease, with long-term current use of insulin ([facility]) Essential hypertension Unspecified essential hypertension ELBA (acute kidney injury) Closed displaced intertrochanteric fracture of right femur with routine healing, subsequent encounter ELBA (acute kidney injury) Urinary tract infection associated with indwelling urethral catheter ([facility]) Urinary retention Unspecified retention of urine COPD exacerbation ([facility])- Primary Obstructive chronic bronchitis with exacerbation Acute exacerbation of chronic obstructive pulmonary disease (COPD) ([facility]) Obstructive chronic bronchitis with exacerbation Chronic kidney [...] Xerosis of skin [facility] assessment information availableWMedina [facility] Work Phone: Evaluation note* Diagnosis Onset Date Resolution Status Admit Date Closed right ankle fracture acute April 17, 2025 9:12am [facility] Work Phone: History of Present illness [...] of motion/joint mobility, strength and transfers. [facility] Work Phone: History of Present illness NarrativeSBA with ambulation into clinic. Weakness noted with LE strengthening. Continued STM to decrease muscular tightness. SOB following sci-fit stepper. Fair quad eccentric control with STS transfers. V/furniture inspector correct form with standing ther ex. Re[facility] Services-[address] Work Phone: History of Present illness NarrativeCGA with added neuro re-ed. Breaks and quick fatigue noted with Ambulation with cane in clinic. Continued palpable tenderness along R glute and hip flexor. [facility] Work Phone: History of Present illness NarrativeWeakness noted with quad and hip strengthening. Breaks required with standing ther ex d/t fatigue and SOB. continued tightness R knee ext. Ambulated with cane through out Tx. C/o fatigue at end of Tx.[facility] [address] Work Phone: History of Present illness NarrativePt. arrived 12 mins late to appt. Held neuro re-ed this visit. Fair quad eccentric control with step ups and STS. Quick fatigue with standing ther ex. LOB with tandem stance. Palpable tenderness R glute and hip flexor.[facility] Work Phone: History of Present illness NarrativeFair tolerance to ther ex. Weakness noted with hip strengthening. Continued lacking full R knee extension AROM. Palpable tenderness along R glute and hip flexor. Increased fatigue and SOB with all ofther ex compared to previous visits. Reviewed HEP.[facility] [place] [address] [place] Work Phone: History of Present illness NarrativeLAB F/U.. CLEAR WATERY EYES WITH ITCHY EYES X SEVERAL WEEKS , NO CHANGE IN VISION. , WORSENING CHRONIC TREMOR . HASN'T BEEN TAKING THE PRIMIDONE ( FORGET TO TAKE IT) . HAS F/U WITH ENDO FOR DM2 .-[facility] Work Phone: History of Present illness Narrative* Fair tolerance to ther ex. Weakness noted with step ups requiring B UE assist. SOB and fatigue noted with standing ther ex. Continued Difficulty with ambulation sing cane with CGA. * Lorena Evangelista, PT, DPT, Cert DN updated goals this date with pt making good progress towards all stated POC goals. [facility] Work Phone: History of Present illness NarrativePt continues to have tightness with knee ext. Fair quad control wth step ups using UE assist. SBA with ambulation in clinic with cane. Improved gait pattern with cane this visit. No time for neuro re-ed this visit. Increased SOB this visit. [facility]-[address] Work Phone: History of Present illness NarrativeBreaks required with all standing ther ex. SOB following step ups. LOB with tandem stance. Continued tightness with L knee ext. Improved gait pattern with cane. Reviewed HEP.[facility] Work Phone: History of Present illness Narrative* Patient has made significant improvement in R hip AROM and strength, and has progressed towards more independent mobility. He is now using a cane for most household mobility, is able to get up and down independently without 's supervision. 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 [facility]-[address] Work Phone: History of Present illness NarrativeLAB F/U. PT QUIT ETOH AFTER HOSPITAL AND OR DISCHARGE, BUT STARTED TO DRINK AGAIN . ITCHY EYES , OLOPATADINE EYE DROP HELPED WITH CLEAR DISCHARGE FROM EYES , BUT NOT MUCH FOR ITCHY EYES . CAN'T AFFORD TO SEE THE PROTEIN SPECIALIST SOONER THAN ONE YEAR.. HAS ROUTINE F/U WITH ENDO FOR DM2. HAD NO ANGINASINCE LAST VISIT WITH H/O ANGINA PECTORIS. PVD HAS BEEN STABLE.-[facility] Work Phone: History of [...] factors: none. * LAB F/U (DONE BY UTILITY WORKER DRIVER ) . MEDICARE WELLNESS EXAM.. CRF , CHRONIC ANGINA , DIABETIC NEUROPATHY NEUROPATHY ,HTN AND DM2 HAVE BEEN STABLE.. STILL DRINKS ETOH ,BUT LESS FREQUENT.(PER PT). [facility] Work Phone: History of [...] factors: none. * LAB F/U (DONE BY UTILITY WORKER DRIVER ) . MEDICARE WELLNESS EXAM.. CRF , CHRONIC ANGINA , DIABETIC NEUROPATHY NEUROPATHY ,HTN AND DM2 HAVE BEEN STABLE.. STILL DRINKS ETOH ,BUT LESS FREQUENT.(PER PT). [facility] Work Phone: History of Present illness NarrativeF/U ON LIMB WEAKNESS . HASN'T STARTED THE PHYSICAL TX YET. 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 STILL DRINKS ETOH,BUT PER PT NOT DAILY( HAD ONE DRINK AFTER SEVERAL FEW MONTHS) .[facility] Work Phone: History of Present illness NarrativeF/U ON LIMB WEAKNESS . HASN'T STARTED THE PHYSICAL TX YET. 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 STILL DRINKS ETOH,BUT PER PT NOT DAILY( HAD ONE DRINK AFTER SEVERAL FEW MONTHS) .[facility] Work Phone: History of Present illness NarrativePatient identified by name and date of . Patient required rest breaks between sets and exercises due to fatigue. He ambulated into clinic with use of S/C with slow nilda. He verbalized good understanding of HEP with review and additional handouts. [facility] [address] [place] Work Phone: History of Present illness NarrativePatient [...] decrease with reported increase in Sx. [facility] [address] [place] Work Phone: History of Present illness NarrativePatient identified by name and date of . [facility] [address] [place] Work Phone: History of Present illness NarrativePatient identified by name and date of . Per patient request treatment time reduced this date due to conflict in schedule. Patient was able to progress with standing exercises this date with addition of reps and step ups. He required seated rest breaks due to LE fatigue. [facility]-[address] Work Phone: History of Present illness [...] of motion/joint mobility, strength and transfers. [facility] Work Phone: Hospital Discharge instructions Additional Instructions Follow-up with orthopedics, you can take the boot off whenever you are sitting/lying down, use it for walking. Ice your ankle and knee, take Tylenol as needed for pain.[facility] Work Phone: Instructions* Name Dates Details Instructions not documented [facility] Work Phone: Instructions* Attachments The following attachments cannot be sent through Care Everywhere. * Diabetes: Foot Care (Singaporean) documented in this encounterOhioHealthReason for referral (narrative)No reason for referral information availableWMedina Hospital Work Phone: Reason for visit Narrative* Initial Evaluation . muscle weakness of lower extremity M62.81, s/p R hip fracture Z87.81. * Referred by: Phyllis Mae MD [facility] Work Phone: Reason for visit NarrativeInitial Evaluation . BLE weakness and history of CVA. [facility] Work Phone: Instructions Name Dates Details Instructions not documented Name Dates Details Instructions not documented Name Dates Details Instructions not documented Name Dates Details Instructions not documented Assessments Diagnosis Anemia, unspecified type - P rimary Monoclonal gammopathy Monoclonal paraproteinemia Diagnosis Bilateral carotid artery rick nosis - Primary Occlusion and stenosis of carotid artery without mention of cerebral infarction PAD (peripheral artery disea se) ([facility]) Unspecified peripheral vascular disease History of carotid endartere ctomy Other postprocedural status Dyslipidemia Other and unspecified hyperlipidemia Claudication of lower extrem ity ([facility]) Diagnosis Abnormal stress test Other nonspecific abnormal cardiovascular system function study Diagnosis Anemia, unspecified type - P rimary Monoclonal gammopathy Monoclonal paraproteinemia Abdominal pain, unspecified abdominal location Diagnosis Anemia, unspecified type - P rimary Monoclonal gammopathy Monoclonal paraproteinemia Tobacco use disorder Diagnosis Neurogenic claudication Spinal stenosis of lumbar region PAD (peripheral artery disea se) ([facility]) Unspecified peripheral vascular disease Claudication of lower extrem ity ([facility]) Diagnosis Anemia, unspecified type - P rimary [...] Chronic obstructive pulmonary disease, unspecified COPD type (HCC)- Primary Cigarette Smoker Tobacco use disorder Screening for malignant neoplasm of respiratory organ Special screening for malignant neoplasm of the respiratory organs Diagnosis Facial numbness- Primary Disturbance of skin sensation Statin intolerance Abnormal stress test Other nonspecific abnormal cardiovascular system function study Diagnosis Pneumonia of left lower lobe due to infectious organism ([facility])- Primary Diagnosis Anemia, unspecified type- Primary Monoclonal gammopathy Monoclonal paraproteinemia Fatigue, unspecified type SOB (shortness of breath) Shortness of breath Diagnosis COPD exacerbation ([facility])- Primary Obstructive chronic bronchitis with exacerbation Diagnosis Abnormal stress test Other nonspecific abnormal cardiovascular system function study Diagnosis Stenosis of left carotid artery Occlusion and stenosis of carotid artery without mention of cerebral infarction History of right-sided carotid endarterectomy Diagnosis Stenosis of left iliac artery ([facility]) Atherosclerosis of [place] arteries of the extremities, unspecified Diagnosis Inadequately controlled diabetes mellitus ([facility]) Type II or unspecified type diabetes mellitus without mention of complication, not stated as uncontrolled IDDM (insulin dependent diabetes mellitus) ([facility]) Dyslipidemia Other and unspecified hyperlipidemia Diagnosis Fall, initial encounter Alcoholic intoxication with complication ([facility]) Fall down stairs Accidental fall on or from other stairs or steps EtOH dependence ([facility]) Diagnosis Chest pain, unspecified type PVD (peripheral vascular disease) ([facility]) Unspecified peripheral vascular disease Diagnosis Screening for malignant neoplasm of respiratory organ Special screening for malignant neoplasm of the respiratory organs Cigarette Smoker Tobacco use disorder Diagnosis Closed fracture of multiple ribs of right side, initial encounter Closed fracture of multiple ribs of left side, initial encounter Closed extensive facial fractures, initial encounter ([facility]) Closed fracture of multiple ribs of both sides, initial encounter Closed fracture of left orbital floor, initial encounter ([facility]) Diagnosis Nipple pain Other sign and symptom in breast Diagnosis Abnormal stress test- Primary Other nonspecific abnormal cardiovascular system function study PAD (peripheral artery disease) ([facility]) Unspecified peripheral vascular disease PVD (peripheral vascular disease) ([facility]) Unspecified peripheral vascular disease Diagnosis Inadequately controlled diabetes mellitus ([facility])- Primary Type II or unspecified type diabetes mellitus without mention of complication, not stated as uncontrolled Dyslipidemia Other and unspecified hyperlipidemia Diagnosis Left carotid artery stenosis Stenosis of left iliac artery ([facility]) Atherosclerosis of mi[place] arteries of the extremities, unspecified History of carotid endarterectomy Other postprocedural status Neurogenic claudication Spinal stenosis of lumbar region Diagnosis Tobacco use disorder Loss of weight Diagnosis Stenosis of left carotid artery- Primary Occlusion and stenosis of carotid artery without mention of cerebral infarction History of right-sided carotid endarterectomy Stenosis of left iliac artery (HCC) Atherosclerosis of [place]ami arteries of the extremities, unspecified Neurogenic claudication Spinal stenosis of lumbar region Diagnosis Type 2 diabetes mellitus without complications (HCC) Diagnosis Anemia, unspecified type- Primary Monoclonal gammopathy [...] sister post PEA/ hypoxic encephalopathy both at [facility]. HEMATOLOGIC HX Has been a diabetic for [...] h/o remote trauma) 12/18/2017 endoscopy performed at [facility] by indicates no abnormality, colonoscopy demonstrates the prostate to be 2+ non nodular, sessile 3 mm polyp within the proximal ascending colon. 12/20/2017 H&H is 12.1/35, MCV is 102.4, serum protein electrophoresis demonstrates a normal pattern, serum kappa free light chain is elevated however ratio is normal, serum immunofixation does not demonstrate any evidence of paraprotein. ALLERGIES Allergies Allergen Reactions Chantix [Varenicline] [facility] has a current medication list which [...] Peptic ulcer disease PVD (peripheral vascular disease) ([facility]) Rhabdomyolysis 2010 Stroke ([facility]) 2010 R side Past Surgical History: Procedure Laterality Date carotid angio 2010 HAND SURGERY Right 2009 NE THROMBOENDARTECTMY NECK,NECK INCIS Right 2009 SHOULDER OPEN [...] Years of education: N/A Occupational History Disability [employer] Social History Main Topics Smoking status: Current [...] Stevo Elizalde is a 68 y.o. male 29-yvvt-xsuo smoker currently smoking half pack a day [...] organ F17.210 Cigarette Smoker COMPARISON: 01/11/2018 at [facility] in [place] and 09/17/2010 from [place]. FINDINGS: There are a couplet of perifissural [...] PM EDT [facility] [address] (11) [facility] [address] [facility] [id number] Subjective: Stevo Elizalde is a 69 y.o. [...] reviewed. Normal LV function No history of CA. Stage III-IV renal insufficiency Remote history of CVA Follows with vascular hospitalized in January of 2017 at [facility] in [place]. He had nausea and some abdominal pain, warm feeling from his head down through his body, perhaps some chest discomfort. Difficult historian. Troponins were negative. Underwent a nuclear stress test in [place] on February 22, 2017. Again noted was a medium size mild intensity partially reversible defect involving the apical mid and basalinferior wall thought probably due to a secondary diaphragmatic attenuation artifact. Ejection fraction was intact 72%. Some septal hypokinesis was noted. This is similar to the nuclear stress test he had back in 2014 at [facility]. History of CVA, ambulates slowly. History [...] CKD (chronic kidney disease) Stage III Claudication ([facility]) COPD (chronic obstructive pulmonary disease) ([facility]) Diabetes mellitus ([facility]) Essential tremor History of pneumonia Hyperlipidemia Hypertension Leg cramps MGUS (monoclonal gammopathy of unknown significance) Peptic ulcer disease PVD (peripheral vascular disease) ([facility]) Rhabdomyolysis 2010 Stroke ([facility]) 2010 R side Past Surgical History: Procedure Laterality Date carotid angio 2010 HAND SURGERY Right 2009 NE THROMBOENDARTECTMY NECK,NECK INCIS Right 2009 SHOULDER OPEN [...] h/o remote trauma) 12/18/2017 endoscopy performed at [facility] by indicates no abnormality, colonoscopy demonstrates the prostate to be 2+ non nodular, sessile 3 mm polyp within the proximal ascending colon. 12/20/2017 H&H is 12.1/35, MCV is 102.4, serum protein electrophoresis demonstrates a normal pattern, serum kappa free light chain is elevated however ratio is normal, serum immunofixation does not demonstrate any evidence of paraprotein. ALLERGIES Allergies Allergen Reactions Chantix [Varenicline] [facility] has a current medication list which [...] carotid angio 2010 HAND SURGERY Right 2009 NE THROMBOENDARTECTMY NECK,NECK INCIS Right 2009 SHOULDER OPEN ROTATOR CUFF REPAIR Left 2015 FH Family History Problem Relation Age of [...] on file Occupational History Occupation: Disability Comment: [employer] Social Needs Financial resource strain: Not on [...] file Gets together: Not on file Attends religion service: Not on file Active member of [...] PM EST [facility] [address] ([address]) [facility] [address] [facility] [id number] Subjective: Stevo Elizalde is a 69 y.o. male seen in the office today for Chief Complaint Patient presents with Follow-up 6 mo ov Overview of Problems Addressed: Problem Abnormal Stress Test Dobutamine stress echo October 2018 negative for ischemia at a very low submaximal heart rate reviewed. Normal LV function No history of CA. Stage III renal insufficiency Remote history of CVA Follows with vascular. hospitalized in January of 2017 at [facility] in [place]. He had nausea and some abdominal pain, warm feeling from his head down through his body, perhaps some chest discomfort. Difficult historian. Troponins were negative. Underwent a nuclear stress test in [place] on February 22, 2017. Again noted was a medium size mild intensity partially reversible defect involving the apical mid and basalinferior wall thought probably due to a secondary diaphragmatic attenuation artifact. Ejection fraction was intact 72%. Some septal hypokinesis was noted. This is similar to the nuclear stress test he had back in 2014 at [facility]. History of CVA, ambulates slowly. History [...] chest pains. Said he recently stated a [facility] had to walk up 2 flights of stairs on a regular basis. Denies significant shortness of breath with that. Does have some discomfort in his legs calves bilaterally polyneuropathy no clear-cut claudication symptoms will be following up with vascular near future cardiac exam unremarkable. Blood pressure is elevated [id number]/93 pulse 78 and regular O2 sat 96%. We will go ahead and add amlodipine 2.5 mg daily for his blood pressure. Previous stress testing reviewed no history of CA no history of heart catheterization. History of [...] Peptic ulcer disease PVD (peripheral vascular disease) ([facility]) Rhabdomyolysis 2010 Stroke ([facility]) 2010 R side Past Surgical History: Procedure Laterality Date carotid angio 2010 HAND SURGERY Right 2009 NE THROMBOENDARTECTMY NECK,NECK INCIS Right 2010 SHOULDER OPEN [...] x3 and CHERYL Laboratory Review: BP (!) 171/84 Pulse 73 [...] Dx: 1. IDDM (insulin dependent diabetes mellitus) ([facility]) BD Ultra-Fine Short Pen Needle 31 gauge x 5/16"Ndle Accu-Chek Elli Plus test strp strips blood-glucose meter [facility] Comprehensive Metabolic Panel Hemoglobin A1c CBC and Differential Lipid Panel TSH T4, Free 2. Inadequately controlled diabetes mellitus ([facility]) Ambulatory referral to Endocrinology 3. Dyslipidemia Type [...] within last 12 months: yes Date: 11/18 Mat Cutter/Forest Ecology Professor: Dr. Lepe Other Ophthalmologic Conditions: S/P Right [...] foot exam: 12/27/19 Follows with Podiatry: No Financial Wellness Coach: History of foot ulceration: No History of [...] Call if BG consistently <70 or >250. [phone] Patient has been checking blood glucoses 2 [...] Clair Joaquin - 04/14/2020 1:10 PM EDT [employer]ink Cart Operator Care Note: Sandwich And Drink Cart Operator responded to Level 2 Trauma. Medical staff attending to patient upon arrival. No family present. Pastoral Care Team will remain available to support patient and family PRN. Chaplain Clair Joaquin MDiv [facility] Pastoral Care Department [phone] office [phone] pager [phone] on-call pager (after 5pm and weekends) 04/14/20 1310 Clinical Encounter Type Visit Type Crisis Crisis Visit Trauma 2;Stroke Alert Visited With Patient not available Visited By Other (comment) (Sandwich And Drink Cart Operator) Visit Length (minutes) 5 Referral From Trauma documented in this encounter* Aquiles Herrera MD - 11/23/2020 1:43 PM EST Telephone Visit Via Phone Call [address] (11) [facility] [address] [facility] [phone] Telephone Visit [facility] 11/23/2020 Aquiles Herrera MD Provider Location: [place] Patient Location Smoke Chaser: None Patient Location: Patient's Home Patient: Stevo [...] there are inherent diagnostic limitations compared to [id number] evaluations. We elected toproceed with the telephone [...] kidney disease), COPD (chronic obstructive pulmonary disease) ([facility]), Diabetes mellitus (HCC), Essential tremor, History of pneumonia, Hyperlipidemia, Hypertension, Leg cramps, Leg heaviness, MGUS (monoclonal gammopathy of unknown significance), Peptic ulcer disease, PVD (peripheral vascular disease) ([facility]), Rhabdomyolysis (2010), and Stroke ([facility]) (2010). He has a past surgical history that includes Hand surgery (Right, 2008); carotid angio (2010); pr thromboendartectmy neck,neck incis (Right, 2010); and Shoulder open rotator cuff repair (Left, 2015). He reports that he has been smoking [...] as needed for cough . BLOOD-GLUCOSE METER MISC Accu-chek Elli plus meter. Use as directed [...] Abnormal stress test PAD (peripheral artery disease) ([facility]) PVD (peripheral vascular disease) ([facility]) Other orders - clopidogreL (PLAVIX) 75 mg [...] within last 12 months: yes Date: 11/18 Mat Cutter/Forest Ecology Professor: Dr. Lepe Other Ophthalmologic Conditions: S/P Right [...] appointment. Lab Results Component Value Date AST 20 07/28/2020 ALT 24 07/28/2020 No results found [...] foot exam: 08/03/20 Follows with Podiatry: No Financial Wellness Coach: History of foot ulceration: No History of [...] Call if BG consistently <70 or >250. [phone] Patient has been checking blood glucoses 2 [...] this encounter* Cameron Munguia III, DO - 12/04/2019 12:59 PM EST Assessment & [...] continued follow-up in 1 year is appropriate. Wewill keep you informed and see him after [...] CKD (chronic kidney disease) Stage III Claudication ([facility]) COPD (chronic obstructive pulmonary disease) ([facility]) Diabetes mellitus (HCC) Essential tremor History of pneumonia Hyperlipidemia Hypertension Leg cramps Leg heaviness MGUS (monoclonal gammopathy of unknown significance) Peptic ulcer disease PVD (peripheral vascular disease) ([facility]) Rhabdomyolysis 2010 Stroke ([facility]) 2010 R side Past Surgical History: Procedure Laterality Date carotid angio 2010 HAND SURGERY Right 2009 NE THROMBOENDARTECTMY NECK,NECK INCIS Right 2009 SHOULDER OPEN [...] He presents at the request of his resource agent (Dr. Herrera). He had undergone a carotid [...] been seen by Dr. Menjivar in the [place] office, but that is been several months [...] CKD (chronic kidney disease) Stage III Claudication ([facility]) COPD (chronic obstructive pulmonary disease) ([facility]) Diabetes mellitus (HCC) Essential tremor History of pneumonia Hyperlipidemia Hypertension Leg cramps MGUS (monoclonal gammopathy of unknown significance) Peptic ulcer disease PVD (peripheral vascular disease) ([facility]) Rhabdomyolysis 2010 Stroke ([facility]) 2010 R side Past Surgical History: Procedure Laterality Date carotid angio 2010 HAND SURGERY Right 2009 NE THROMBOENDARTECTMY NECK,NECK INCIS Right 2009 SHOULDER OPEN [...] Inhale 2 (two) times a day Tudorza. ADVAIR DISKUS 500-50 mcg/dose diskus inhaler INHALE [...] h/o remote trauma) 12/18/2017 endoscopy performed at [facility] by indicates no abnormality, colonoscopy demonstrates the prostate to be 2+ non nodular, sessile 3 mm polyp within the proximal ascending colon. 12/20/2017 H&H is 12.1/35, MCV is 102.4, serum protein electrophoresis demonstrates a normal pattern, serum kappa free light chain is elevated however ratio is normal, serum immunofixation does not demonstrate any evidence of paraprotein. ALLERGIES Allergies Allergen Reactions [facility] [V[facility]ic[facility]] [facility] has a current medication list which [...] Peptic ulcer disease PVD (peripheral vascular disease) ([facility]) Rhabdomyolysis 2010 Stroke (HCC) 2010 R side Past Surgical History: Procedure Laterality Date carotid angio 2010 HAND SURGERY Right 2009 NE THROMBOENDARTECTMY NECK,NECK INCIS Right 2010 SHOULDER OPEN ROTATOR CUFF REPAIR Left 2015 FH Family History Problem Relation Age of [...] non-medical: None Occupational History Occupation: Disability Comment: [employer] Tobacco Use Smoking status: Current Every Day [...] none Further Action Completed: none KRISTI Callahan, DIE CASTING MACHINE SETTER Re Dye Hand [facility] documented in this encounter Summary [...] Z82.5) Status:Active Family history of type 2 sunshnie betes mellitus: Sister(V18.0, Z83.3) Status:Active Family history [...] FoundDocuments on File Type Date Recorded Patient Talent Program Manager Expl anation Advance Directives and Livin g Will 11/13/2018 12:00 AM Documents on File Type Date Recorded Patient Talent Program Manager Expl anation Advance Directives and Livin g Will 05/27/2019 11:55 AM Documents on File Type Date Recorded Patient Talent Program Manager Expl anation Advance Directives and Livin g Will 06/05/2019 12:41 PM Documents on File Type Date Recorded Patient Talent Program Manager Expl anation Advance Directives and Livin g Will 12/04/2019 12:47 PM Documents on File Type Date Recorded Patient Talent Program Manager Expl anation Advance Directives and Livin g Will 12/04/2019 12:47 PM Documents on File Type Date Recorded Patient Talent Program Manager Expl anation Advance Directives and Livin g Will 04/14/2020 1:37 PM Documents on File Type Date Recorded Patient Talent Program Manager Expl anation Advance Directives and Livin g Will 12/04/2019 12:47 PM Advance Directives and Livin g Will 04/14/2020 1:37 PM Documents on File Type Date Recorded Patient Talent Program Manager Expl anation Advance Directives and Livin g Will 12/04/2019 12:47 PM Advance Directives and Livin g Will 05/25/2020 12:00 AM Documents on File Type Date Recorded Patient Talent Program Manager Expl anation Advance Directives and Livin g Will 12/04/2019 12:47 PM Advance Directives and Livin g Will 06/10/2020 6:41 PM Documents on File Type Date Recorded Patient Talent Program Manager Expl anation Advance Directives and Livin g Will 12/04/2019 12:47 PM Advance Directives and Livin g Will 08/31/2020 6:41 PM Documents on File Type Date Recorded Patient Talent Program Manager Expl anation Advance Directives and Livin g Will 12/04/2019 12:47 PM Advance Directives and Livin g Will 08/31/2020 6:41 PM Documents on File Type Date Recorded Patient Talent Program Manager Expl anation Advance Directives and Livin g Will 12/04/2019 12:47 PM Advance Directives and Livin g Will 01/11/2021 12:23 PM Documents on File Type Date Recorded Patient Talent Program Manager Expl anation Advance Directives and Livin g Will 12/04/2019 12:47 PM Advance Directives and Livin g Will 03/08/2021 12:23 PM Latest Code Status on File Code Status Date Activated Date Inactivated Comments Full Code 03/08/2021 5:11 PM 03/12/2021 8:19 PM Documents on File Type Date Recorded Patient Talent Program Manager Expl anation Advance Directives and Livin g Will 03/08/2021 12:23 PM Advance Directives and Livin g Will 12/04/2019 12:47 PM Documents on File Type Date Recorded Patient Talent Program Manager Expl anation Advance Directives and Livin g [...] Documents on File Type Date Recorded Patient Talent Program Manager Expl anation Advance Directives and Livin g [...] Documents on File Type Date Recorded Patient Talent Program Manager Expl anation Advance Directives and Livin g [...] Agents on File Name Relationship Healthcare Agent Relationshi p Communication Isabelleashish Dunham Spouse Health Care Agent Healthcare Agents on File Name Relationship Healthcare Agent Relationshi p Communication Isabelleashish Dunham Spouse Health Care Agent Advance Directive Response Recorded Date/ Time Do you have a Healthcare Power of Advertising Rep? Yes April 10, 2025 3:33pm Name of Medical Power of Advertising Rep CESAR MARCIAL April 10, 2025 3:33pm Reason for Referral Status Reason Specialty Diagnoses / Procedures Re ferred By Contact Referred To Contact Closed Cardiology Diagnoses Chest pain, unspecified type Procedures Dobutamine stress echocardiogram Aquiles Herrera MD [address] [address] Status Reason Specialty Diagnoses / Procedures Referre d By Contact Referred To Contact Closed Cardiology Diagnoses Bilateral carotid artery stenosis Procedures Carotid Duplex Aquiles Herrera MD [address] [address] Status Reason Specialty Diagnoses / Procedures Referre d By Contact Referred To Contact Closed Radiology Diagnoses Screening for malignant neoplasm of respiratory organ Cigarette Smoker Procedures CT Lung Cancer Screening Lola Cruz MD [address] [place], [place] [phone] Status Reason Specialty Diagnoses / Procedures Referred By Contact Referred To Contact Pending Review Radiology Diagnoses Cigarette Smoker Screening for malignant neoplasm of respiratory organ Procedures CT Lung Cancer Screening Lola Cruz MD [address] [place], [place] [phone] Status Reason Specialty Diagnoses / Procedures Re ferred By Contact Referred To Contact Closed Cardiology Diagnoses Stenosis of left carotid artery History of right-sided carotid endarterectomy Procedures Carotid Duplex Cameron Munguia III, DO [address] [place] [address] Status Reason Specialty Diagnoses / Procedures Referre d By Contact Referred To Contact Closed Cardiology Diagnoses Stenosis of left iliac artery (HCC) Procedures Segmental Doppler Lower Extremity Arterial W Exercise Cameron Munguia III, DO [address] [place] [address] Status Reason Specialty Diagnoses / Procedures Referre d By Contact Referred To Contact Closed Radiology Diagnoses Chest pain, unspecified type PVD (peripheral vascular disease) (HCC) Procedures NM Myocardial Perfusion Multiple SPECT Aquiles Herrera MD [address] [address] Status Reason Specialty Diagnoses / Procedures Referre d By Contact Referred To Contact Closed Radiology Diagnoses Screening for malignant neoplasm of respiratory organ Cigarette Smoker Procedures CT Lung Cancer Screening Lola Cruz MD [address] [place], [place] [phone] Status Reason Specialty Diagnoses / Procedures Referre d By Contact Referred To Contact Closed Radiology Diagnoses Nipple pain Procedures Mammography Diagnostic Bilateral Phyllis Mae MD [address] [place] [id number] Status Reason Specialty Diagnoses / Procedures Re ferred By Contact Referred To Contact Pending Review Cardiology Diagnoses Left carotid artery stenosis History of carotid endarterectomy Procedures Carotid Duplex Cameron Munguia III, DO [address] [place] [address] Status Reason Specialty Diagnoses / Procedures Re ferred By Contact Referred To Contact Authorized Cardiology Diagnoses Stenosis of left carotid artery History of right-sided carotid endarterectomy Procedures Carotid Duplex Cameron Munguia III, DO [address] [place] [address] Status Reason Specialty Diagnoses / Procedures Referred By Contact Referred To Contact Authorized Cardiology Diagnoses Stenosis of left iliac artery (HCC) Procedures Segmental Doppler Lower Extremity Arterial W Exercise Cameron Munguia III, DO [address] [place] [address] Status Reason Specialty Diagnoses / Procedures Referred By Contact Referred To Contact Closed Vascular Surgery / Cardiology Diagnoses Chest pain, unspecified type Bilateral carotid artery stenosis Aquiles Herrera MD [address] [address] Cameron Munguia III, DO [address] [place] [address] Status Reason Specialty Diagnoses / Procedures Referre d By Contact Referred To Contact Closed Cardiology Diagnoses Prominent abdominal aortic pulse Procedures Ultrasound abdominal aorta duplex limited Aquiles Herrera MD [address] [address] Status Reason Specialty Diagnoses / Procedures Referred By Contact Referred To Contact Pending Review Patient Preference Home Health Services Diagnoses Acute UTI Metabolic encephalopathy Neck pain PAD (peripheral artery disease) ([facility]) PVD (peripheral vascular disease) ([facility]) Type 2 diabetes mellitus with stage 3b chronic kidney disease, with long-term current use of insulin (HCC) Essential hypertension ELBA (acute kidney injury) ([facility]) Bryce Alvarez MD [address] [place] [address] Specialty Diagnoses / Procedures Referred By Contac t Referred To Contact Cardiology Diagnoses GREEN (dyspnea on exertion) Procedures Echocardiogram complete Aquiles Herrera MD [address] [address] Referral ID Status Reason Start Date Expiration Date V isits Requested Visits Authorized [id number] Pending Review 06/02/2022 06/02/2023 1 1 Specialty Diagnoses / Procedures Referred By Contac t Referred To Contact Wound Care Diagnoses Non-pressure chronic ulcer of left lower leg, limited to breakdown of skin ([facility]) Christopher Galindo PA-C [address] [place] [address] Maureen Brown MD [address] [place] [address] Referral ID Status Reason Start Date Expiration Date Visits Requested Visits Authorized [id number] Authorized Specialty Services Required/Pat ient's Best Interest 11/10/2022 11/10/2023 1 1 Specialty Diagnoses / Procedures Referred By Contac t Referred To Contact Radiology Diagnoses 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[facility]) Procedures NM Brain Datscan SPECT CT Single Area Single Day Deshaun Rodrigues MD [address] [facility] [address] [place] [address] Nuclear Medicine [address] [place] [id number] Referral ID Status Reason Start Date Expiration Date V isits Requested Visits Authorized [id number] New Request 04/05/2023 04/04/2024 4 4 Specialty Diagnoses / Procedures Referred By Contac t Referred To Contact Podiatry Diagnoses Diabetic polyneuropathy associated with type 2 diabetes mellitus (HCC) Deshaun Rodrigues MD [address] [address] BHUMIKA Lin, DPM [address] [address] Referral ID Status Reason Start Date Expiration Date V isits Requested Visits Authorized [id number] Pending Review 10/11/2023 10/10/2024 1 1 Specialty Diagnoses / Procedures Referred By Contac t Referred To Contact Home Health Services Diagnoses Gait difficulty Muscle weakness of lower extremity Recurrent falls Phyllis Mae MD [address] [place] [address] [place] [address] [place] [address] Referral ID Status Reason Start Date Expiration Date Visits Requested Visits Authorized [id number] Pending Review Specialty Services Required 12/14/2023 12/13/2024 [...] Extremity Arterial BHUMIKA Lin, DPM [address] [place] [address] [facility] [address] [place] [address] Referral ID Status Reason Start Date Expiration Date V isits Requested Visits Authorized [id number] Authorized 12/19/2023 12/18/2024 1 1 Specialty Diagnoses / Procedures Referred By Contac t Referred To Contact Home Health Services Diagnoses Weakness of upper extremity Weakness of both lower extremities Recurrent falls Neck pain H/O: CVA (cerebrovascular accident) Essential tremor Neurogenic claudication Phyllis Mae MD [address] [place] [address] [facility] [address] [place] [place] [address] Referral ID Status Reason Start Date Expiration Date Visits Requested Visits Authorized [id number] Pending Review Specialty Services Required 02/27/2024 02/26/2025 999 999 Specialty Diagnoses / Procedures Referred By Contac t Referred To Contact Hematology and Oncology Diagnoses Thrombocytopenia ([facility]) Phyllis Mae MD [address] [place] [address] Referral ID Status Reason Start Date Expiration Date Visits Requested Visits Authorized [id number] Authorized Specialty Services Required 07/25/2024 07/25/2025 1 1 Specialty Diagnoses / Procedures Referred By Contac t Referred To Contact Radiology Diagnoses Thrombocytopenia ([facility]) Procedures US abdomen limited liver Phyllis Mae MD [address] [place] [address] Referral ID Status Reason Start Date Expiration Date Visits Requested Visits Authorized [id number] Authorized Perform Procedure 07/25/2024 07/25/2025 1 1 Specialty Diagnoses / Procedures Referred By Contac t Referred To Contact Home Health Services Diagnoses Chronic obstructive pulmonary disease, unspecified Phyllis Mae MD [address] [place] [address] Referral ID Status Reason Start Date Expiration Date Visits Requested Visits Authorized [id number] Authorized Specialty Services Required 07/25/2024 07/25/2025 999 [...] be sent through Care Everywhere. * Pneumonia (Singaporean) documented in this encounter* Instructions* Silvia Ken [...] Log into your personal health record on [email or web address] and enter K111 in the "Education" box to learn more about "Using a Metered-Dose Inhaler: Care Instructions." Current as of: July 04, 2018 Content Version: 09.29 [email or web address]. Care instructions adapted under license by your healthcare professional. If you have questions about a medical condition or this instruction, always ask your healthcare professional. [email or web address] disclaims any warranty or liability for your use of this information. Avoiding COPD Triggers (01:49) Your health professional recommends that you watch this short online health video. Learn how to avoid the things that make your COPD symptoms worse. How to watch the video Scan the QR code OR Visit the website [email or web address] Current as of: July 04, 2018 Content Version: 09.29 [email or web address]. Care instructions adapted under license by your healthcare professional. If you have questions about a medical condition or this instruction, always ask your healthcare professional. [email or web address] disclaims any warranty or liability for your use of this information. Breathing treatments as prescribed. Continue antibiotics. * Attachments The following attachments cannot be sent through Care Everywhere. * COPD Exacerbation Plan (Singaporean) documented in this encounter* Attachments The following attachments cannot be sent through Care Everywhere. * Alcohol Use Disorder: General Info (Singaporean) * Fall Prevention (Singaporean) documented in this encounter* Instructions* Ray Scherer MD - 06/10/2020 Hold ASA and Plavix til the * Attachments The following attachments cannot be sent through Care Everywhere. * Rib Fracture (Singaporean) * Facial Fracture (Singaporean) documented in this encounter Chief Complaint F/U HOSPITAL/LONGTERM. HAS BEEN B/P MEDS X [address] AT HOSPITAL CALLED IN TRAMADOL BUT IT ISNOT CONTROLLING THE PAIN. THE HOSPITAL D/C A LOT OF HIS MEDS AND PT AND HIS WANTS TO DISCUSS TO YOU.F/U HOSPITAL/LONGTERM. HAS BEEN B/P MEDS X [address] AT HOSPITAL CALLED IN TRAMADOL BUT IT ISNOT CONTROLLING THE PAIN. THE HOSPITAL D/C A LOT OF HIS MEDS AND PT AND HIS WANTS TO DISCUSS TO YOU.1 MO FU SPINE AND NECK XRAYS1 MONTH F/U. DOING PT 3 TIMES A WEEK1 MONTH F/U. DOING PT 3 TIMES A WEEK3 WEEK F/U WITH LABS. 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 PATIENT CONTINUES PHYSICAL THERAPY FOR LOW BACK PAIN WHICH HAS BEEN BENEFICIAL. STILL HAS TROUBLE SLEEPING AT NIGHT BUT TRAZODONE DOES HELP. C/O ITCHY AND WATERY EYES FOR THE LAST COUPLE WEEKS - VISINE TX WITH NO RELIEF.3 WEEK F/U WITH LABS. 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 PATIENT CONTINUES PHYSICAL THERAPY FOR LOW BACK PAIN WHICH HAS BEEN BENEFICIAL. STILL HAS TROUBLE SLEEPING AT NIGHT BUT TRAZODONE DOES HELP. C/O ITCHY AND WATERY EYES FOR THE LAST COUPLE WEEKS - VISINE TX WITH NO RELIEF.3 WEEK F/U WITH LABS. 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 LAST WEEK DUE TO LOW [...] Reason for Visit Chief Complaint Admit Date LONGTERM LAB WORK January 27, 2025 4 :00am Chief Complaint Admit Date LONGTERM LAB WORK January 27, 2025 4 :00am LONGTERM LAB WORK February 19, 2025 8 :10am LONGTERM LAB WORK February 23, 2025 5 :50pm R KNEE AND ANKLE PAIN, HYPOTENSION April 10, 2025 3:16pm Chief Complaint Admit Date LONGTERM LAB WORK January 27, 2025 4 :00am LONGTERM LAB WORK February 19, 2025 8 :10am LONGTERM LAB WORK February 23, 2025 5 :50pm R KNEE AND ANKLE PAIN, HYPOTENSION April 10, 2025 3:16pm LONGTERM LAB WORK April 16, 2025 4: 00am RIGHT FIBULA April 17, 2025 9:12 am Reason for Visit Admit Date Closed right ankle fracture April 17, 9:12am Additional Source Comments Assessment & Plan [...] chest pains. Said he recently stated a [employer] had to walk up 2 flights [...] Previous stress testing reviewed no history of CA no history of heart catheterization. History of [...] PCP . 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 documented in this encounter Associated Problem(s): Closed [...] cell attenuation consistent with hemorrhage. Transfer from [facility] for Trauma tertiary evaluation. Loading CT head, [...] stress echocardiogram Aquiles Herrera MD [address] [address] Status Reason Specialty Diagnoses / Procedures Referre d By Contact Referred To Contact Closed Cardiology Diagnoses Bilateral carotid artery stenosis Procedures Carotid Duplex Aquiles Herrera MD [address] [address] Status Reason Specialty Diagnoses / Procedures Referre d By Contact Referred To Contact Closed Radiology Diagnoses Screening for malignant neoplasm of respiratory organ Cigarette Smoker Procedures CT Lung Cancer Screening Lola Cruz MD [address] [address] Reason Comments Follow-up LDCT chest Reason Comments [...] (HCC) Phyllis Mae MD [address] [place] [address] Susan Baptiste MD [address] [address] Reason Comments Trauma Stroke Alert Status Reason Specialty Diagnoses / Procedures Referre d By Contact Referred To Contact Closed Radiology Diagnoses Chest pain, unspecified type PVD (peripheral vascular disease) (HCC) Procedures NM Myocardial Perfusion Multiple SPECT Aquiles Herrera MD [address] [address] Status Reason Specialty Diagnoses / Procedures Referre d By Contact Referred To Contact Closed Radiology Diagnoses Screening for malignant neoplasm of respiratory organ Cigarette Smoker Procedures CT Lung Cancer Screening Lola Cruz MD [address] [place] [address] Reason Comments Trauma Status Reason Specialty Diagnoses / Procedures Referre d By Contact Referred To Contact Closed Radiology Diagnoses Nipple pain Procedures Mammography Diagnostic Bilateral Phyllis Mae MD [address] [place] [address] Reason Comments TELEHEALTH PH. [phone] -6M O Shortness of Breath W/ EXERTION lightheaded upon standing Fatigue Reason Comments Follow-up seg, car Reason Comments Follow-up review abd/carotid Status Reason Specialty Diagnoses / Procedures Referred By Contact Referred To Contact Closed Vascular Surgery / Cardiology Diagnoses Chest pain, unspecified type Bilateral carotid artery stenosis Aquiles Hrerera MD [address] [address] Cameron Munguia Don III, DO [address] [place] [address] Reason Comments Medication Refill Reason Comments proactive outreach Status Reason Specialty Diagnoses / Procedures Referre d By Contact Referred To Contact Closed Cardiology Diagnoses Prominent abdominal aortic pulse Procedures Ultrasound abdominal aorta duplex limited Aquiles Herrera MD [address] [address] Reason Comments Follow-up Reason Comments Abnormal Lab [...] Reason Comments Hospital Follow-up F/U HOSPITAL DISCHAR [facility] 02/27/23 - COPD EXACERBATION, LEFT [...] Reason Comments Diabetic Foot Exam A1c: 8.6DLS: 3 Wound Check Right foot wound clement [...] HE HAS BEEN LIVING WITH SON AND [id number] BUT ATTEMPTED ADMISSION TO [facility]. C/O EPISODES OF HYPOGLYCEMIA - DOESN'T TAKE [...] section and content) DATE CREATED AUTHOR 11/16/2018 [facility] DATE CREATED AUTHOR AUTHOR'S ORGANIZ ATION 11/23/2018 [facility] DATE CREATED AUTHOR AUTHOR'S ORGANIZ ATION 12/11/2018 [facility] DATE CREATED AUTHOR AUTHOR'S ORGANIZ ATION 07/05/2019 [facility] DATE CREATED AUTHOR AUTHOR'S ORGANIZ ATION 04/14/2020 [facility] DATE CREATED AUTHOR AUTHOR'S ORGANIZ ATION 05/21/2020 [facility] DATE CREATED AUTHOR AUTHOR'S ORGANIZ ATION 11/11/2022 [facility] DATE CREATED AUTHOR AUTHOR'S ORGANIZ ATION 12/30/2022 [facility] [place] DATE CREATED AUTHOR AUTHOR'S ORGANIZ ATION 12/30/2022 [facility] DATE CREATED AUTHOR AUTHOR'S ORGANIZ ATION 08/07/2024 [facility] DATE CREATED AUTHOR AUTHOR'S ORGANIZ ATION 09/27/2024 [facility] DATE CREATED AUTHOR AUTHOR'S ORGANIZ ATION 11/15/2024 [facility] DATE CREATED AUTHOR AUTHOR'S ORGANIZ ATION 01/04/2025 [facility] DATE CREATED AUTHOR AUTHOR'S ORGANIZ ATION 03/11/2025 [facility] DATE CREATED AUTHOR AUTHOR'S ORGANIZ ATION 06/02/2025 [facility] Esmer Cheng RN - 05/27/2019 12:40 PM [...] RT for breathing treatment ED PROVIDER NOTE [facility] EMERGENCY DEPARTMENT NAME: Stevo Elizalde AGE: 69 y.o. : 1950 VISIT DATE: 05/27/2019 CSN: [id number] PCP: Phyllis Mae MD Chief Complaint Patient [...] Peptic ulcer disease PVD (peripheral vascular disease) ([facility]) Rhabdomyolysis 2010 Stroke ([facility]) 2010 R side Past Surgical History: Procedure Laterality Date carotid angio 2010 HAND SURGERY Right 2009 NE THROMBOENDARTECTMY NECK,NECK INCIS Right 2010 SHOULDER OPEN [...] on file Occupational History Occupation: Disability Comment: [employer] Financial resource strain: Not on [...] file Gets together: Not on file Attends religion service: Not on file Active member of [...] SpO2 Height Weight 05/27/19 1224 95 % 05/27/19 1128 94 % 05/27/19 1125 145/87 98.2 [...] size. 5. Multilevel degenerative changes of the war-ko-wpyje thoracic spine are redemonstrated. [facility] Workstation ID: [id number] Procedures MDM Number [...] MD. Specialty: Internal Medicine [address] [place] [id number] Contact information for after-discharge care Follow-up information [...] Associated Order(s): EKG 12-lead ED PROVIDER NOTE [facility] EMERGENCY DEPARTMENT NAME: Stevo Elizalde AGE: 69 y.o. : 1950 VISIT DATE: 06/05/2019 CSN: [id number] PCP: Phyllis Mae MD Chief Complaint Patient [...] carotid angio 2010 HAND SURGERY Right 2009 NE THROMBOENDARTECTMY NECK,NECK INCIS Right 2010 SHOULDER OPEN [...] on file Occupational History Occupation: Disability Comment: [employer] Financial resource strain: Not on [...] file Gets together: Not on file Attends religion service: Not on file Active member of [...] normal T Waves: T waves normal normal NE interval normal QRS interval Clinical impression: normal [...] Why: If symptoms worsen [address] [place] [facility] [address] Contact information for after-discharge care Follow-up information [...] dr mathis is on stroke network monitor [facility] ED Attending Note: NAME: Stevo Elizalde 70 y.o. CSN: [id number] PCP: Phyllis Mae MD History: Chief Complaint: [...] file Gets together: Not on file Attends religion service: Not on file Active member of [...] and APTT. Procedure Abnormality Status --------- ------ PT/INR[[id number]] Normal Final result APTT[[id number]] Normal Final result Please view results for these tests on the individual orders. OBTAIN VENOUS BLOOD GASES AND PERFORM TYPE AND SCREEN CT Lumbar Spine Without Contrast Reconstructed Preliminary Result No acute fracture or traumatic malalignment. ST/[facility] [employer] Workstation ID: [id number] CT Thoracic Spine Without [...] Result No acute fracture or traumatic malalignment. Wknuzubp-ba-cdwwbl multilevel degenerative changes. ST/kls Workstation ID: [id number] CT Head Or Brain Without Contrast Preliminary Result 1. No intracranial hemorrhage or mass effect. 2. No depressed calvarial fracture. ST/cdr Workstation ID: [id number] XR Chest 1 View Preliminary Result 1. No acute cardiopulmonary process. 2. No acute displaced rib fractures. ST/banner Workstation ID: [id number] US ED Fast Scan (Results Pending) Indicates that patient unharmed by fall. to take him home. Clinical Impression: 1. Fall, initial encounter 2. Alcoholic intoxication with complication (HCC) Disposition: Patient is being discharged to home BRANDIE SCHERER MD [facility] Emergency Department (Please note that portions of this note have been completed with a voice recognition software. Efforts were made to correct any errors, but occasionally words are mis-transcribed.) Ray Scherer MD 04/14/[address] XRAY CARTSIDE ROLLED TO EVAL BACK, C SPINE MAINTAINED BY MARIANO STACK Alert called to Stroke Network to activate Cart at this time documented in this encounter [facility] ED Attending Note: NAME: Stevo Elizalde 70 y.o. CSN: [id number] PCP: Phyllis Mae MD History: Chief Complaint: Trauma HPI: The history was obtained from the patient. Stevo is a 70 y.o. male who presents with a chief complaint of Trauma. Very pleasant 70-year-old white male anil Flanagan he has broken ribs and some facial fractures and is on blood thinner .denies loss of consciousness denies inability to walk .rred from another facility for trauma evaluation after a fall last night. PMHx: Past Medical History: Diagnosis Date Arthritis Carotid artery occlusion CKD (chronic kidney disease) Stage III COPD (chronic obstructive pulmonary disease) ([facility]) Diabetes mellitus ([facility]) TYPE 2 Essential tremor History of pneumonia Hyperlipidemia Hypertension Leg cramps Leg heaviness MGUS (monoclonal gammopathy of unknown significance) Peptic ulcer disease PVD (peripheral vascular disease) ([facility]) Rhabdomyolysis 2010 Stroke ([facility]) 2010 R side PMSx: Past Surgical History: Procedure Laterality Date carotid angio 2010 HAND SURGERY Right 2009 NE THROMBOENDARTECTMY NECK,NECK INCIS Right 2009 SHOULDER OPEN [...] on file Occupational History Occupation: Disability Comment: [employer] Financial resource strain: Not on [...] file Gets together: Not on file Attends religion service: Not on file Active member of [...] 3. Closed extensive facial fractures, initial encounter ([facility]) 4. Closed fracture of multiple ribs of [...] Start: 06/16/20. Route: Oral BRANDIE SCHERER MD [facility] Emergency Department (Please note that portions of this note have been completed with a voice recognition software. 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 documented in this encounter Amanda Gorman CNP - 06/10/2020 5:57 PM EDT H&P Notes (unrecognized sect ion and content) [place] TRAUMA TRAUMA EVALUATION / HISTORY AND PHYSICAL [...] cell attenuation consistent with hemorrhage. Transfer from [facility] for Trauma tertiary evaluation. Loading CT head, maxface, cervical spine. Left eye edema and ecchymosis, no visual deficit, no noted entrapment. Consult to ENT Spoke with Dr. iMnaya, will see in office on Friday 06/15, [...] of carotid endarterectomy that was transferred from [facility] after being evaluated s/p fall 2 days ago with noted facial fracture and rib fracture. Pt states 2 nights ago he got out of bed and tripped and fell onto his left face and side. Today he had a yearly PCP appointment and his PCP felt he needed to be evaluated for fracture. [facility] completed a CT head and cervical spine [...] Stage III COPD (chronic obstructive pulmonary disease) ([facility]) Diabetes mellitus ([facility]) TYPE 2 Essential tremor History of pneumonia Hyperlipidemia Hypertension Leg cramps Leg heaviness MGUS (monoclonal gammopathy of unknown significance) Peptic ulcer disease PVD (peripheral vascular disease) ([facility]) Rhabdomyolysis 2010 Stroke ([facility]) 2010 R side Past Surgical History: Procedure Laterality Date carotid angio 2010 HAND SURGERY Right 2009 NE THROMBOENDARTECTMY NECK,NECK INCIS Right 2010 SHOULDER OPEN [...] as needed for cough . blood-glucose meter [facility] Accu-chek Elli plus meter. Use as directed [...] Pupils 3 mm equal and reactive bilaterally. [place] Coma Scale EYES (4-spont, 3-to verb stim, [...] Oral, Nightly, First dose on Mon04/27/21 at 2100 2025 (Given - Provider: Radha Cruz, RN) 2050 (Given - Provider: Rocío Matthews, RN) budesonide-formoteroL (SYMBICORT) 160-4.5 mcg/actuation inhaler 2 puff 2 puff, Inhalation, 2 times daily (RT), First dose on Mon04/27/21 at 2200 0824 (Given - Provider: Judi Sorto RN)2024 (Given - Provider: Radha Cruz RN) 0900 (Given - Provider: Rachel Cash, RN)1999 (Not Given - Provider: Rocío Matthews, RN - Reason: Patient/family refused) 0944 (Given - Provider: Richardson Lema, SEDA) calcium-vitamin D (OS-SHELDON +D) 500 mg(1,250mg) -200 unit per tablet 1 tablet 1 tablet, Oral, 2 times daily with meals, First dose on Mon04/28/21 at 0800, Give with Food 0824 (Given - Provider: Judi Sorto, SEDA)1735 (Given - Provider: Patesha Macario, RN) 0928 (Given - Provider: Rachel Cash RN)1743 (Given - Provider: Rachel Cash RN) 0944 (Given - Provider: Richardson Lema, RN) clopidogreL (PLAVIX) tablet 75 mg 75 mg, Oral, Daily, First dose on Mon04/28/21 at 0900 0824 (Given - Provider: Judi Sorto RN) 0928 (Given - Provider: Rachel Cash RN) 0944 (Given - Provider: Richardson Lema, SEDA) heparin (porcine) injection 5,000 Units 5,000 Units, Subcutaneous, Every 8 hours scheduled, First dose on Mon04/27/21 at 2200, Notify physician if patient refuses. 0600 (Given - Provider: Rdaha Cruz RN)1437 (Given - Provider: Judi Sorto RN)2200 (Given - Provider: Radha Cruz RN) 0600 (Given - Provider: Radha Cruz RN)1743 (Given - Provider: Rachel Cash RN)210 (Given - Provider: Rocío Matthews RN) 0533 (Given - Provider: Rocío Matthews RN)1400 (Due) insulin glargine (LANTUS) injection 16 Units 16 Units, Subcutaneous, Nightly, First dose on Mon04/27/21 at 2230, Do not mix with other insulins in a syringe. Do NOT hold basal insulin without notifying physician" 2027 (Given - Provider: Radha Cruz RN) 2257 (Given - Provider: Rocío Matthews, RN) insulin lispro (HumaLOG) injection 0-15 Units 0-15 [...] parameters not met - Comment: sugar 239) 2100 (Not Given - Provider: Rocío Matthews RN [...] PREprandial" 0730 (Not Given - Provider: Judi Sorto RN - Reason: Order parameters not met)1434 (Given - Provider: Judi Sorto RN)1735 (Given - Provider: Judi Sorto, SEDA) 0928 (Given - Provider: Rachel Cash RN)1130 (Given - Provider: Rachel Cash RN)1743 (Given - Provider: Rachel Cash RN) 0944 (Given - Provider: Richardson Lema, SEDA)1130 (Not Given - Provider: Richardson Lema RN - Reason: Order parameters not met) labetaloL (NORMODYNE) tablet 100 mg 100 mg, Oral, Every 12 hours scheduled, First dose on Mon05/01/21 at 1100 0824 (Given - Provider: Judi Sorto, SEDA)2026 (Given - Provider: Radha Cruz RN) 0928 (Given - Provider: Rachel Cash RN)205 (Given - Provider: Rocío Matthews, SEDA) 0944 (Given - Provider: Richardson Lema, SEDA) NIFEdipine 24 hr tablet 30 mg 30 mg, Oral, Daily, First dose (after last modification) on Mon04/30/21 at 0915 0823 (Given - Provider: Judi Sorto RN) 0927 (Given - Provider: Rachel Cash RN) 0944 (Given - Provider: Richardson Lema, SEDA) pantoprazole (PROTONIX) EC tablet 40 mg 40 mg, Oral, Daily, First dose on Mon04/28/21 at 0900, DO NOT CRUSH OR CHEW. 0823 (Given - Provider: Judi Sorto, RN) 09 (Given - Provider: Rachel Cash, RN) 0943 (Given - Provider: Richardson Lema, RN) PARoxetine (PAXIL) tablet 20 mg 20 mg, Oral, Daily, First dose on Mon04/28/21 at 0900, CATEGORY D HAZARDOUS DRUG use safe handling precautions. Use reference link to view PPE guidelines. Minimize crushing/splitting only to situations where clinically necessary. 0826 (Given - Provider: Judi Sorto RN) 09 (Given - Provider: Rachel Cash, RN) 0944 (Given - Provider: Richardson Lema, RN) sodium bicarbonate tablet 1,300 mg 1,300 mg, Oral, 2 times daily, First dose on Mon04/27/21 at 2100 0823 (Given - Provider: Judi Sorto RN)2025 (Given - Provider: Radha Cruz RN) 09 (Given - Provider: Rachel Cash RN)2050 (Given - Provider: Rocío Matthews, SEDA) 0943 (Given - Provider: Richardson Lema, SEDA) sodium [...] to DC IV)1400 (Given - Provider: Rachel Cash, RN)2103 (Given - Provider: Rocío Matthews, RN) 0533 (Given - Provider: Rocío Matthews, RN)1400 (Not Given - Provider: Richardson Lema, SEDA - Reason: Loss of IV access) tiotropium bromide (SPIRIVA RESPIMAT) 2.5 mcg/actuation inhaler 2 puff 2 puff, Inhalation, Daily (RT), First dose on Mon04/28/21 at 0900 0829 (Given - Provider: Judi Sorto RN) 09 (Given - Provider: Rachel Cash RN) 8556 (Given - Provider: Richardson Lema RN) PRN Medication Order 05/09/2021 05/10/2021 05/11/2021 acetaminophen (TYLENOL) tablet 650 mg 650 mg, Oral, Every 6 hours PRN, headaches, Starting on Madeline 04/29/21 at 1747 0407 (Return to Cabinet - Provider: Radha Cruz RN) 0213 (Given - Provider: Rayo Jara RN) 1354 (Due) albuterol (PROVENTIL) 2.5 mg [...] per minute., Starting on Madeline 04/29/21 at 2128, Mix nalOXone (NARCAN) 0.4 mg [...] 5 min PRN, chest pain, Starting on Mon04/27/21 at 1718, Anginal pain, may repeat [id number] x3, then notify physician. DO NOT CRUSH OR CHEW. ondansetron (ZOFRAN) injection 4 mg(Linked Group 3) 4 mg, Intravenous, Every 6 hours PRN, nausea, vomiting, Starting on Mon04/27/21 at 1718, Use oral route first, if tolerated. ondansetron (ZOFRAN-ODT) disintegrating tablet 4 mg(Linked Group 3) 4 mg, Oral, Every 6 hours PRN, nausea, vomiting, Starting on Mon04/27/21 at 1718, Use oral route first, if tolerated. Formulation requires tablet remain in sealed package until immediately prior to dose being administered. sodium chloride (PF) (NS) flush 5 mL(Linked Group 1) 5 mL, Intravenous, As needed, line care, Starting on Mon04/27/21 at 1718 sodium chloride 0.9% (NS)(Linked Group 1) 0-150 mL/hr, Intravenous, As needed, To flush line after IV infusions when no maintenance IV ordered or a compatibility issue. Infuse 20ml at the same rate as the secondary infusion, Starting on Mon04/27/21 at 1718, Run as Primary IV. NOT intended for KVO. traMADoL (ULTRAM) 50 mg, acetaminophen (TYLENOL) 325 mg combo dose Oral, Every 6 hours PRN, pain, Starting on Mon04/29/21 at 2128 0417 (Given - Provider: Radha Cruz RN)1107 (Given - Provider: Judi Sorto, SEDA)1746 (Given - Provider: Judi Sorto, RN) 0213 (Given - Provider: Rayo Jara, RN)1038 (Given - Provider: Rachel Cash, RN)2057 (Given - Provider: Rocío Matthews, RN) 0538 (Given - Provider: Rocío Matthews, RN)1356 (Given - Provider: Darrin Thompson, RN) Linked Groups Order Group 1: Saline [...] per minute., Starting on Madeline 04/29/21 at 8
Mix nalOXone (NARCAN) 0.4 mg (1ml) with [...] and unresponsive, Starting on Madeline 04/29/21 at 8
Call a code first, then administer naloxone [...]
Care Teams (unrecognized sec tion and content) 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 Specialty Start Date End Date Phyllis Mae MD [address] [place] [address] PCP - General Internal Medicine 04/14/20 Phyllis Mae MD [address] [place] [address] Internal Medicine 04/14/20 Rochelle Cheung MD [address] [place] [address] Consulting Physician Nephrology 04/12/17 Cameron Munguia III, DO [address] [facility] [place] [address] Consulting Physician Vascular Surgery 05/24/17 Aquiles Herrera MD [address] [phone] Consulting Physician Cardiovascular Disease 05/24/17 Ellen Claudio MD [address] [place] [address] [phone] Consulting Physician Physical Medicine/Rehabilitation 05/24/17 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 Specialty Start Date End Date Phyllis Mae MD [address] [place] [address] PCP - General Internal Medicine 04/14/20 Phyllis Mae MD [address] [place] [address] Internal Medicine 04/14/20 Rochelle Cheung MD [address] [place] [address] Consulting Physician Nephrology 04/12/17 Cameron Munguia III, DO 335 [facility] [place] [address] Consulting Physician Vascular Surgery 05/24/17 Aquiles Herrera MD [address] [phone] Consulting Physician Cardiovascular Disease 05/24/17 Ellen Claudio MD 293 [facility], [place] [phone] Consulting Physician Physical Medicine/Rehabilitation 05/24/17 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 Specialty Start Date End Date Phyllis Mae MD [address] [place] [address] PCP - General Internal Medicine 04/14/20 Phyllis Mae MD [address] [place] [address] Internal Medicine 04/14/20 Rochelle Cheung MD [address] [place] [address] Consulting Physician Nephrology 04/12/17 Cameron Munguia III, DO [address] [place] [address] Consulting Physician Vascular Surgery 05/24/17 Aquiles Herrera MD [address] [phone] Consulting Physician Cardiovascular Disease 05/24/17 Ellen Claudio MD 293 [place] [address] Consulting Physician Physical Medicine/Rehabilitation 05/24/17 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 Specialty Start Date End Date Phyllis Mae MD [address] [place] [address] PCP - General Internal Medicine 04/14/20 Phyllis Mae MD [address] [place] [address] Internal Medicine 04/14/20 Rochelle Cheung MD [address] [place] [address] Consulting Physician Nephrology 04/12/17 Cameron Munguia III, DO [address] [place] [address] Consulting Physician Vascular Surgery 05/24/17 Aquiles Herrera MD [address] [address] Consulting Physician Cardiovascular Disease 05/24/17 Ellen Claudio MD [address] [place] [address] Consulting Physician Physical Medicine/Rehabilitation 05/24/17 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 Specialty Start Date End Date Phyllis Mae MD [address] [place] [address] PCP - General Internal Medicine 04/14/20 Phyllis Mae MD [address] [place] [address] Internal Medicine 04/14/20 Rochelle Cheung MD [address] [place] [address] Consulting Physician Nephrology 04/12/17 Cameron Munguia III, DO [address] [place] [address] Consulting Physician Vascular Surgery 05/24/17 Aquiles Herrera MD [address] [address] Consulting Physician Cardiovascular Disease 05/24/17 Ellen Claudio MD [address] [place] [address] Consulting Physician Physical Medicine/Rehabilitation 05/24/17 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 Specialty Start Date End Date Phyllis Mae MD [address] [place] [address] PCP - General Internal Medicine 04/14/20 Phyllis Mae MD [address] [place] [address] Internal Medicine 04/14/20 Rochelle Cheung MD [address] [place] [address] Consulting Physician Nephrology 04/12/17 Caemron Munguia III, DO [address] [facility] [place] [address] Consulting Physician Vascular Surgery 05/24/17 Aquiles Herrera MD [address] [address] Consulting Physician Cardiovascular Disease 05/24/17 Ellen Claudio MD [address] [place] [address] [phone] Consulting Physician Physical Medicine/Rehabilitation 05/24/17 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 Specialty Start Date End Date Phyllis Mae MD [address] [place] [address] PCP - General Internal Medicine 04/14/20 Phyllis Mae MD [address] [place] [address] Internal Medicine 04/14/20 Rochelle Cheung MD [address] [place] [address] Consulting Physician Nephrology 04/12/17 Cameron Munguia III, DO 335 [facility] [place] [address] Consulting Physician Vascular Surgery 05/24/17 Aquiles Herrera MD [address] [phone] Consulting Physician Cardiovascular Disease 05/24/17 Ellen Claudio MD [address] [place] [address] Consulting Physician Physical Medicine/Rehabilitation 05/24/17 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 Specialty Start Date End Date Phyllis Mae MD [address] [place] [address] PCP - General Internal Medicine 04/14/20 Phyllis Mae MD [address] [place] [address] Internal Medicine 04/14/20 Rochelle Cheung MD [address] [place] [address] Consulting Physician Nephrology 04/12/17 Cameron Munguia III, DO [address] [place] [address] Consulting Physician Vascular Surgery 05/24/17 Aquiles Herrera MD [address] [phone] Consulting Physician Cardiovascular Disease 05/24/17 Ellen Claudio MD [address] [place] [address] Consulting Physician Physical Medicine/Rehabilitation 05/24/17 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 Specialty Start Date End Date Phyllis Mae MD [address] [place] [address] PCP - General Internal Medicine 04/14/20 Phyllis Mae MD [address] [place] [address] Internal Medicine 04/14/20 Rochelle Cheung MD [address] [place] [address] Consulting Physician Nephrology 04/12/17 Cameron Munguia III, DO 335 [facility] [place] [address] Consulting Physician Vascular Surgery 05/24/17 Aquiles Herrera MD [address] [address] Consulting Physician Cardiovascular Disease 05/24/17 Ellen Claudio MD [address] [place] [address] [phone] Consulting Physician Physical Medicine/Rehabilitation 05/24/17 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 Specialty Start Date End Date Phyllis Mae MD [address] [place] [address] PCP - General Internal Medicine 11/28/18 04/13/20 Phyllis Mae MD [address] [place] [address] PCP - General Internal Medicine 04/14/20 Phyllis Mae MD [address] [place] [address] Internal Medicine 04/14/20 Rochelle Cheung MD [address] [place] [address] Consulting Physician Nephrology 04/12/17 Cameron Munguia III, DO 335 [facility] [place] [address] Consulting Physician Vascular Surgery 05/24/17 Aquiles Herrera MD [address] [address] Consulting Physician Cardiovascular Disease 05/24/17 Ellen Claudio MD 293 [place] [address] Consulting Physician Physical Medicine/Rehabilitation 05/24/17 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 Specialty Start Date End Date Phyllis Mae MD [address] [place] [address] PCP - General Internal Medicine 11/28/18 04/13/20 Phyllis Mae MD [address] [place] [address] PCP - General Internal Medicine 04/14/20 Phyllis Mae MD [address] [place] [address] Internal Medicine 04/14/20 Rochelle Cheung MD [address] [place] [address] Consulting Physician Nephrology 04/12/17 Cameron Munguia III, DO 335 [place] [address] Consulting Physician Vascular Surgery 05/24/17 Aquiles Herrera MD [address] [address] Consulting Physician Cardiovascular Disease 05/24/17 Ellen Claudio MD 293 [place] [address] Consulting Physician Physical Medicine/Rehabilitation 05/24/17 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 Specialty Start Date End Date Jose Dailey MD [address] [place] [address] PCP - General Internal Medicine 09/23/16 11/27/18 Phyllis Mae MD [address] [place] [address] PCP - General Internal Medicine 11/28/18 04/13/20 Phyllis Mae MD [address] [place] [address] PCP - General Internal Medicine 04/14/20 Phyllis Mae MD [address] [place] [address] Internal Medicine 04/14/20 Rochelle Cheung MD [address] [place] [address] Consulting Physician Nephrology 04/12/17 Cameron Munguia III, DO [address] [place] [address] Consulting Physician Vascular Surgery 05/24/17 Aquiles Herrera MD [address] [address] Consulting Physician Cardiovascular Disease 05/24/17 Ellen Claudio MD [address] [place] [address] Consulting Physician Physical Medicine/Rehabilitation 05/24/17 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 Specialty Start Date End Date Phyllis Mae MD [address] [place] [address] PCP - General 07/02/19 Phyllis Mae MD [address] [place] [address] PCP - [employer] Medicare Advantage PCP 10/30/21 Marley Velarde, freight brakemanInsurance Executive 03/03/23 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 Specialty Start Date End Date Phyllis Mae MD [address] [place] [address] PCP - General Internal Medicine 04/14/20 Phyllis Mae MD [address] [place] [address] Internal Medicine 04/14/20 Rochelle Cheung MD [address] [place] [address] Consulting Physician Nephrology 04/12/17 Cameron Munguia III, DO [address] [place] [address] Consulting Physician Vascular Surgery 05/24/17 Aquiles Herrera MD [address] [address] Consulting Physician Cardiovascular Disease 05/24/17 Ellen Claudio MD [address] [place] [address] Consulting Physician Physical Medicine/Rehabilitation 05/24/17 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 Specialty Start Date End Date Phyllis Mae MD [address] [place] [address] PCP - General Internal Medicine 04/14/20 Phyllis Mae MD [address] [place] [address] Internal Medicine 04/14/20 Rochelle Cheung MD [address] [place] [address] Consulting Physician Nephrology 04/12/17 Cameron Munguia III, 335 [place] [address] Consulting Physician Vascular Surgery 05/24/17 Aquiles Herrera MD [address] [address] Consulting Physician Cardiovascular Disease 05/24/17 Ellen Claudio MD [address] [place] [address] [address] [place], [place] [phone] Consulting Physician Physical Medicine/Rehabilitation 05/24/17 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 Specialty Start Date End Date Phyllis Mae MD [address] [place] [address] PCP - General Internal Medicine 04/14/20 Phyllis Mae MD [address] [place] [address] Internal Medicine 04/14/20 Rochelle Cheung MD [address] [place] [address] Consulting Physician Nephrology 04/12/17 Cameron Munguia III, 335 [place] [address] Consulting Physician Vascular Surgery 05/24/17 Aquiles Herrera MD [address] [address] Consulting Physician Cardiovascular Disease 05/24/17 Ellen Claudio MD [facility] [place] [address] Consulting Physician Physical Medicine/Rehabilitation 05/24/17 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 Specialty Start Date End Date Phyllis Mae MD [address] [place] [address] PCP - General 07/02/19 Phyllis Mae MD [address] [place] [address] PCP - [employer] Medicare Advantage PCP 10/30/21 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 Specialty Start Date End Date Phyllis Mae MD [address] [place] [address] PCP - General Internal Medicine 04/14/20 Phyllis Mae MD [address] [place] [address] Internal Medicine 04/14/20 Rochelle Cheung MD [address] [place] [address] Consulting Physician Nephrology 04/12/17 Cameron Munguia III, DO [address] [place] [address] Consulting Physician Vascular Surgery 05/24/17 Aquiles Herrera MD [address] [address] Consulting Physician Cardiovascular Disease 05/24/17 Ellen Claudio MD [address] [place] [address] Consulting Physician Physical Medicine/Rehabilitation 05/24/17 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 Specialty Start Date End Date Phyllis Mae MD [address] [place] [address] PCP - General Internal Medicine 04/14/20 Phyllis Mae MD [address] [place] [address] Internal Medicine 04/14/20 Rochelle Cheung MD [address] [place] [address] Consulting Physician Nephrology 04/12/17 Cameron Munguia III, DO [facility] [place] [address] Consulting Physician Vascular Surgery 05/24/17 Aquiles Herrera MD [address] [address] Consulting Physician Cardiovascular Disease 05/24/17 Ellen Claudio MD [address] [place] [address] Consulting Physician Physical Medicine/Rehabilitation 05/24/17 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 Specialty Start Date End Date Phyllis Mae MD [address] [place] [address] PCP - General 07/02/19 Phyllis Mae MD [address] [place] [address] PCP - [employer] Medicare Advantage PCP 10/30/21 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 Specialty Start Date End Date Phyllis Mae MD [address] [place] [address] PCP - General Internal Medicine 04/14/20 Phyllis Mae MD [address] [place] [address] Internal Medicine 04/14/20 Rochelle Cheung MD [address] [place] [address] Consulting Physician Nephrology 04/12/17 Cameron Munguia III, DO [facility] [place] [address] Consulting Physician Vascular Surgery 05/24/17 Aquiles Herrera MD [address] [address] Consulting Physician Cardiovascular Disease 05/24/17 Ellen Claudio MD [address] [place] [address] Consulting Physician Physical Medicine/Rehabilitation 05/24/17 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 Specialty Start Date End Date Phyllis Mae MD [address] [place] [address] PCP - General Internal Medicine 04/14/20 Phyllis Mae MD [address] [place] [address] Internal Medicine 04/14/20 Rochelle Cheung MD [address] [place] [address] Consulting Physician Nephrology 04/12/17 Cameron Munguia III, DO [address] [place] [address] Consulting Physician Vascular Surgery 05/24/17 Aquiles Herrera MD [address] [place] [id number] Consulting Physician Cardiovascular Disease 05/24/17 Ellen Claudio MD [address] [place] [address] 4000227 Consulting Physician Physical Medicine/Rehabilitation 05/24/17 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 Specialty Start Date End Date Phyllis Mae MD [address] [place] [address] PCP - General Internal Medicine 04/14/20 Phyllis Mae MD [address] [place] [address] Internal Medicine 04/14/20 Rochelle Cheung MD [address] [place] [address] Consulting Physician Nephrology 04/12/17 Cameron Munguia III, [address] [place] [address] Consulting Physician Vascular Surgery 05/24/17 qAuiles Herrera MD [address] [address] Consulting Physician Cardiovascular Disease 05/24/17 Ellen Claudio MD [address] [place] [address] Consulting Physician Physical Medicine/Rehabilitation 05/24/17 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 Specialty Start Date End Date Phyllis Mae MD [address] [place] [address] PCP - General Internal Medicine 04/14/20 Phyllis Mae MD [address] [place] [address] Internal Medicine 04/14/20 Rochelle Cheung MD [address] [place] [address] Consulting Physician Nephrology 04/12/17 Cameron Munguia III, DO [facility] [place] [address] Consulting Physician Vascular Surgery 05/24/17 Aquiles Herrera MD [address] [address] Consulting Physician Cardiovascular Disease 05/24/17 Ellen Claudio MD [address] [place] [address] Consulting Physician Physical Medicine/Rehabilitation 05/24/17 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 Specialty Start Date End Date Phyllis Mae MD [address] [place] [address] PCP - General 07/02/19 Phyllis Mae MD [address] [place] [address] PCP - [employer] Medicare Advantage PCP 10/30/21 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 Specialty Start Date End Date Phyllis Mae MD [address] [place] [address] PCP - General 07/02/19 Phyllis Mae MD [address] [place] [address] PCP - [employer] Medicare Advantage PCP 10/30/21 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 Specialty Start Date End Date Phyllis Mae MD [address] [place] [address] PCP - General Internal Medicine 04/14/20 Phyllis Mae MD [address] [place] [address] Internal Medicine 04/14/20 Rochelle Cheung MD [address] [place] [address] Consulting Physician Nephrology 04/12/17 Cameron Munguia III, DO [address] [place] [address] Consulting Physician Vascular Surgery 05/24/17 Aquiles Herrera MD [address] [address] Consulting Physician Cardiovascular Disease 05/24/17 Ellen Claudio MD [address] [place], [place] [phone] Consulting Physician Physical Medicine/Rehabilitation 05/24/17 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 Specialty Start Date End Date Phyllis Mae MD [address] [place] [address] PCP - General Internal Medicine 04/14/20 Phyllis Mae MD [address] [place] [address] Internal Medicine 04/14/20 Rochelle Cheung MD [address] [place] [address] Consulting Physician Nephrology 04/12/17 Cameron Munguia III, DO [facility] [place], [place] [address] Consulting Physician Vascular Surgery 05/24/17 Aquiles Herrera MD [address] [address] Consulting Physician Cardiovascular Disease 05/24/17 Ellen Claudio MD [place] [address] Consulting Physician Physical Medicine/Rehabilitation 05/24/17 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 Specialty Start Date End Date Phyllis Mae MD [address] [place] [address] PCP - General Internal Medicine 04/14/20 Phyllis Mae MD [address] [place] [address] Internal Medicine 04/14/20 Rochelle Cheung MD [address] [place] [address] Consulting Physician Nephrology 04/12/17 Cameron Munguia III, DO [address] [place] [address] Consulting Physician Vascular Surgery 05/24/17 Aquiles Herrera MD [address] [address] Consulting Physician Cardiovascular Disease 05/24/17 Ellen Claudio MD [address] [place], [place] [address]ash[place] [address] Consulting Physician Physical Medicine/Rehabilitation 05/24/17 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 Specialty Start Date End Date Phyllis Mae MD [address] [place] [address] PCP - General Internal Medicine 04/14/20 Phyllis Mae MD [address] [place] [address] Internal Medicine 04/14/20 Rochelle Cheung MD [address] [place] [address] Consulting Physician Nephrology 04/12/17 Cameron Munguia III, 335 [place] [address] Consulting Physician Vascular Surgery 05/24/17 Aquiles Herrera MD [address] [address] Consulting Physician Cardiovascular Disease 05/24/17 Ellen Claudio MD [address] [place] [address] Consulting Physician Physical Medicine/Rehabilitation 05/24/17 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 Specialty Start Date End Date Phylils Mae MD [address] [place] [address] PCP - General Internal Medicine 04/14/20 Phyllis Mae MD [address] [place] [address] Internal Medicine 04/14/20 Rochelle Cheung MD [address] [place] [address] Consulting Physician Nephrology 04/12/17 Cameron Munguia III, DO [facility] [place] [address] Consulting Physician Vascular Surgery 05/24/17 Aquiles Herrera MD [address] [address] Consulting Physician Cardiovascular Disease 05/24/17 Ellen Claudio MD [address] [place] [address] Consulting Physician Physical Medicine/Rehabilitation 05/24/17 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 Specialty Start Date End Date Phyllis Mae MD [address] [place] [address] PCP - General Internal Medicine 04/14/20 Phyllis Mae MD [address] [place] [address] Internal Medicine 04/14/20 Rochelle Cheung MD [address] [place] [address] Consulting Physician Nephrology 04/12/17 Cameron Munguia III, DO [facility] [place] [address] Consulting Physician Vascular Surgery 05/24/17 Aquiles Herrera MD [address] [address] Consulting Physician Cardiovascular Disease 05/24/17 Ellen Claudio MD [address] [place] [address] Consulting Physician Physical Medicine/Rehabilitation 05/24/17 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 Specialty Start Date End Date Phyllis Mae MD [address] [place] [address] PCP - General Internal Medicine 04/14/20 Phyllis Mae MD [address] [place] [address] Internal Medicine 04/14/20 Rochelle Cheung MD [address] [place] [address] Consulting Physician Nephrology 04/12/17 Cameron Munguia III, DO [address] [place] [address] Consulting Physician Vascular Surgery 05/24/17 Aquiles Herrera MD [address] [address] Consulting Physician Cardiovascular Disease 05/24/17 Ellen Claudio MD [address] [place] [address] [place] [address] Consulting Physician Physical Medicine/Rehabilitation 05/24/17 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 Specialty Start Date End Date Phyllis Mae MD [address] [place] [address] PCP - General Internal Medicine 04/14/20 Phyllis Mae MD [address] [place] [address] Internal Medicine 04/14/20 Rochelle Cheung MD [address] [place] [address] Consulting Physician Nephrology 04/12/17 Cameron Munguia III, [address] [place] [address] Consulting Physician Vascular Surgery 05/24/17 Aquiles Herrera MD [address] [address] Consulting Physician Cardiovascular Disease 05/24/17 Ellen Claudio MD [address] [place] [address] Consulting Physician Physical Medicine/Rehabilitation 05/24/17 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 Specialty Start Date End Date Phyllis Mae MD [address] [place] [address] PCP - General Internal Medicine 04/14/20 Phyllis Mae MD [address] [place] [address] Internal Medicine 04/14/20 Rochelle Cheung MD [address] [place] [address] Consulting Physician Nephrology 04/12/17 Cameron Munguia III, DO [facility] [place] [place] [address] Consulting Physician Vascular Surgery 05/24/17 Aquilse Herrera MD [address] [address] Consulting Physician Cardiovascular Disease 05/24/17 Ellen Claudio MD [address] [place] [address] Consulting Physician Physical Medicine/Rehabilitation 05/24/17 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 Specialty Start Date End Date Phyllis Mae MD [address] [place] [address] PCP - General Internal Medicine 04/14/20 Phyllis Mae MD [address] [place] [address] Internal Medicine 04/14/20 Rochelle Cheung MD [address] [place] [address] Consulting Physician Nephrology 04/12/17 Cameron Munguia III, DO [address] [place], [place] [address] [place] [address] Consulting Physician Vascular Surgery 05/24/17 Aquiles Herrera MD [address] [address] Consulting Physician Cardiovascular Disease 05/24/17 Ellen Claudio MD [address] [place] [id number] Consulting Physician Physical Medicine/Rehabilitation 05/24/17 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 Specialty Start Date End Date Phyllis Mae MD [address] [place] [address] PCP - General 07/02/19 Phyllis Mae MD [address] [place] [address] PCP - [employer]age PCP 10/30/21 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 Specialty Start Date End Date Phyllis Mae MD [address] [place] [address] PCP - General Internal Medicine 04/14/20 Phyllis Mae MD [address] [place] [address] Internal Medicine 04/14/20 Rochelle Cheung MD [address] [place] [address] Consulting Physician Nephrology 04/12/17 Cameron Munguia III, DO [address] [facility] [place] [address] Consulting Physician Vascular Surgery 05/24/17 Aquiles Herrera MD [address] [phone] Consulting Physician Cardiovascular Disease 05/24/17 Ellen Claudio MD [address] [place] [address] [phone] Consulting Physician Physical Medicine/Rehabilitation 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/17 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 Specialty Start Date End Date Phyllis Mae MD [address] [place] [address] PCP - General 07/02/19 Phyllis Mae MD [address] [place] [address] PCP - [employer]vantage PCP 10/30/21 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 Specialty Start Date End Date Phyllis Mae MD [address] [place] [address] PCP - General Internal Medicine 04/14/20 Phyllis Mae MD [address] [place] [address] Internal Medicine 04/14/20 Rochelle Cheung MD [address] [place] [address] Consulting Physician Nephrology 04/12/17 Cameron Munguia III, [address] [place] [address] Consulting Physician Vascular Surgery 05/24/17 Aquiles Herrera MD [address] [address] Consulting Physician Cardiovascular Disease 05/24/17 Ellen Claudio MD [address] [place] [address] [phone] Consulting Physician Physical Medicine/Rehabilitation 05/24/17 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 Specialty Start Date End Date Phyllis Mae MD [address] [place] [address] PCP - General Internal Medicine 04/14/20 Phyllis Mae MD [address] [place] [address] Internal Medicine 04/14/20 Rochelle Cheung MD [address] [place] [address] Consulting Physician Nephrology 04/12/17 Cameron Munguia III, [address] [place] [address] Consulting Physician Vascular Surgery 05/24/17 Aquiles Herrera MD [address] [address] Consulting Physician Cardiovascular Disease 05/24/17 [place] [address] Consulting Physician Physical Medicine/Rehabilitation 05/24/17 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 Specialty Start Date End Date Phyllis Mae MD [address] [place] [address] PCP - General 07/02/19 Phyllis Mae MD [address] [place] [place] [address] PCP - [employer] Medicare Advantage PCP 10/30/21 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 Start Date End Date Phyllis Mae MD [address] [place] [address] PCP - General Internal Medicine 04/14/20 Phyllis Mae MD [address] [place] [address] Internal Medicine 04/14/20 Rochelle Cheung MD [address] [place] [address] Consulting Physician Nephrology 04/12/17 Cameron Munguia III, DO [address] [place] [address] Consulting Physician Vascular Surgery 05/24/17 Aquiles Herrera MD [address] [address] Consulting Physician Cardiovascular Disease 05/24/17 Ellen Claudio [place] [address] Consulting Physician Physical Medicine/Rehabilitation 05/24/17 Team Status: [...] BE BASED ON THE PRIMARY CLINICAL RECORDS. [facility] [employer] [facility]. provides no warranty or guarantee of the accuracy or completeness of information in this document.
[2025-06-11 08:10] LABS: Hematocrit 31.3 % (40-54); Hemoglobin 10.5 g/dL (13.0-16.5); Mean Corp Hgb Conc 33.5 g/dL (32-36); Mean Corpuscular Volume 95.4 fL (80-94); Mean Platelet Vol. 11.2 fl (6.2-12.0); Platelet Count 276 K/mm3 (150-450); RBC Distribution Width CV 13.9 % (11.6-14.6); RBC Distribution Width SD 48.7 fl (35.1-43.9); Red Blood Count 3.28 M/mm3 (4.6-6.2); White Blood Count 7.6 K/mm3 (4.4-11.0)
[2025-06-11 08:57] LABS: Albumin, Serum 3.5 g/dL (3.4-4.8); Anion Gap 12 (5-15); BUN 27 mg/dL (4-19); BUN/Creat Ratio 15.0 RATIO (10-20); Calcium,Total 9.3 mg/dL (7.6-11.0); Carbon Dioxide 20.6 mmol/L (21.0-32.0); Chloride 107 mmol/L (98-108); Glucose 143 mg/dL (70-99); Potassium 4.3 mmol/L (3.3-5.1)
== END ==
LOC: OLS.SWAL 05:00
PROVIDERS: PCP Internal Medicine
DX: N18.32 Chronic kidney disease, stage 3b (principal); D64.9 Anemia, unspecified
CPT/HCPCS: 36415; 80069; 85027

== ENCOUNTER → 2025-08-06 | Outpatient (CLI) | payer MEDICARE, MEDICAID, SELFPAY ==
[2025-08-06 11:10] LABS: Hematocrit 34.6 % (40-54); Hemoglobin 11.5 g/dL (13.0-16.5); Mean Corp Hgb Conc 33.2 g/dL (32-36); Mean Corpuscular Volume 96.6 fL (80-94); Mean Platelet Vol. 10.8 fl (6.2-12.0); Platelet Count 360 K/mm3 (150-450); RBC Distribution Width CV 14.3 % (11.6-14.6); RBC Distribution Width SD 51.2 fl (35.1-43.9); Red Blood Count 3.58 M/mm3 (4.6-6.2); White Blood Count 9.2 K/mm3 (4.4-11.0)
[2025-08-06 11:33] LABS: Albumin, Serum 3.8 g/dL (3.4-4.8); Anion Gap 11 (5-15); BUN 24 mg/dL (4-19); BUN/Creat Ratio 12.9 RATIO (10-20); Calcium,Total 9.5 mg/dL (7.6-11.0); Carbon Dioxide 23.2 mmol/L (21.0-32.0); Chloride 105 mmol/L (98-108); Glucose 146 mg/dL (70-99); Potassium 4.9 mmol/L (3.3-5.1)
== END | disposition home or self-care (01) ==
LOC: LAB 10:43
PROVIDERS: PCP Internal Medicine; Referring Provider Internal Medicine Nephrology; Visit Provider Internal Medicine Nephrology
DX: D64.9 Anemia, unspecified (principal); N18.32 Chronic kidney disease, stage 3b
CPT/HCPCS: 36415; 80069; 85027

== ENCOUNTER 2025-08-22 11:56 | Emergency (ER) | payer MEDICARE, MEDICAID, SELFPAY ==
[2025-08-22 11:58] VITALS: BP 155/88; PULSE 72; RESP 17; TEMP 36.6; O2SAT 93; BMI 21.9
[2025-08-22 12:05] VITALS: O2SAT 88
[2025-08-22 12:10] VITALS: O2SAT 92
--- NOTE | 2025-08-22 12:23 | CT_ITS ---
PROCEDURE: CHEST WITHOUT CONTRAST 08/22/2025 REASON FOR EXAM: RIB ANTERIOR CHEST WALL INJURY TECHNIQUE: Chest CT without contrast. Coronal and Sagittal reconstruction series were provided. One or more dose reduction techniques were used (e.g., Automated exposure control, adjustment of the mA and/or kV according to patient size, use of iterative reconstruction technique RADIATION DOSE SUMMARY: CTDlvol: 7.77 mGy DLP: 309.59 mGycm COMPARISON: None FINDINGS: Hardware: Monitor electrodes overlie the chest. Lymph nodes: No lymphadenopathy. Heart and Vasculature: Mild cardiomegaly. Coronary Artery Calcifications: Atherosclerotic calcifications of the coronary arteries. Lungs and Airways: Airspace opacities in the left lower lobe and lingula consistent with pneumonia. Pleura: No pleural effusion or pneumothorax. Upper Abdomen: Perinephric fat stranding. Cholelithiasis. Bones: Acute nondisplaced fracture of the anterior right 6th and 7th ribs. Old left rib fractures. CT/Chest without Contrast IMPRESSION: Coronary artery calcification (CAC) is is present Acute nondisplaced fracture of the anterior right 6th and 7th ribs. Airspace opacities in the left lower lobe and lingula consistent with pneumonia . Perinephric fat stranding. Cholelithiasis. Reading Location: [id number]
--- NOTE | 2025-08-22 12:25 | EX.ED.GENINJ ---
HPI History of Present Illness Chief Complaint: Chest Other Informant: patient, EMS and SNF Narrative Narrative: 75-year-old male with history of COPD presenting to the emergency room with chest pain. Patient states that on Monday he was coming out of the bathroom when he tripped over the bar on the ground falling forward and injuring his chest. Per [facility] he had rib x-rays that were negative but he has continued discomfort and was sent to the emergency room for further evaluation. Patient denies any shortness of breath. He notes a chronic cough due to COPD. He states he does not normally wear oxygen. He denies any head injury. He denies any new back pain since the fall. He states that they put a lidocaine patch on his right chest. He notes generalized soreness. PFSH PFS Home Medications ?Medication ?Instructions ?Recorded ?Last Taken ?Type acetaminophen 500 mg tablet 500 mg PO Q6 PRN pain 04/17/25 Unknown History albuterol sulfate 2.5 mg/3 mL mg inhalation DIRECTED 04/17/25 Unknown History (0.083 %) solution for nebulization albuterol sulfate 90 mcg/actuation inhalation 04/17/25 Unknown History aerosol inhaler aspirin 81 mg tablet,delayed 81 mg PO QDAY 04/17/25 Unknown History release (Adult Aspirin Regimen) atorvastatin 20 mg tablet 20 mg PO QDAY 04/17/25 Unknown History blood-glucose,lathe operator contact lens,cont #1 ea 04/17/25 Unknown History (FreeStyle Hung 3 Newton) clopidogrel 75 mg tablet 75 mg PO QDAY 04/17/25 Unknown History diclofenac sodium 1 % topical gel 2 g topical Q6H PRN 04/17/25 Unknown History (Arthritis Pain (diclofenac)) ergocalciferol (vitamin D2) 1,250 1,250 mcg PO QMONTH 04/17/25 Unknown History mcg (50,000 unit) capsule famotidine 20 mg tablet 20 mg PO BID 04/17/25 Unknown History fenofibrate nanocrystallized 145 145 mg PO QDAY 04/17/25 Unknown History mg tablet fluticasone 500 mcg-salmeterol 50 inhalation 04/17/25 Unknown History mcg/dose blistr powdr for inhalation insulin aspart U-100 100 unit/mL subcut 04/17/25 Unknown History (3 mL) subcutaneous pen insulin glargine 100 unit/mL (3 5 unit subcut QAM 04/17/25 Unknown History mL) subcutaneous pen (Lantus Solostar U-100 Insulin) isosorbide mononitrate 30 mg 30 mg PO QDAY 04/17/25 Unknown History tablet,extended release 24 hr loperamide 2 mg capsule 2 mg PO BID PRN 04/17/25 Unknown History loratadine 10 mg tablet (Claritin) 10 mg PO QDAY 04/17/25 Unknown History multivit with minerals-iron 18 1 tab PO QDAY 04/17/25 Unknown History mg-folic ac 400 mcg-vit K 25 mcg tablet (Central-Timothy) paroxetine HCl 20 mg tablet 20 mg PO QDAY 04/17/25 Unknown History primidone 50 mg tablet 50 mg PO BID 04/17/25 Unknown History propranolol 20 mg tablet 20 mg PO BID 04/17/25 Unknown History sodium bicarbonate 650 mg tablet 1,300 mg PO BID 04/17/25 Unknown History tamsulosin 0.4 mg capsule mg PO 04/17/25 Unknown History tiotropium bromide 18 mcg capsule 1 cap inhalation QDAY 04/17/25 Unknown History with inhalation device (Spiriva with HandiHaler) venlafaxine 37.5 mg tablet mg PO 04/17/25 Unknown History doxycycline monohydrate 100 mg 100 mg PO BID #14 CAPSULES 08/22/25 Unknown Rx capsule Allergy/AdvReac Type Severity Reaction Status Date / Time No Known Allergies Allergy Verified 08/22/25 11:57 Social History housing: [facility] Smoking Status: Former smoker ROS ROS ED Constitutional Constitutional ED: Denies chills, fever(s) or weight loss Eyes Eyes: Denies change in vision or diplopia ENT ENT ED: Denies ear pain, rhinorrhea or sore throat Cardiovascular Cardiovascular: Reports chest pain; Denies orthopnea, palpitations or racing heartbeat Respiratory/Chest Respiratory/Chest: Reports cough; Denies dyspnea or orthopnea Gastrointestinal Gastrointestinal: Denies abdominal pain, diarrhea, nausea or vomiting Genitourinary Genitourinary ED: Denies dysuria, hematuria or urinary frequency Musculoskeletal Musculoskeletal: Denies arthralgias or myalgias Integumentary Denies abscess or rash Neurologic Neurologic: Denies headache(s) or weakness Psychiatric Psychiatric: Denies anxiety, depression, suicidal ideation or suicidal thoughts Endocrine Endocrinology: Denies polydipsia, polyphagia or polyuria Allergic/Immunologic Allergic/Immunologic ED: Denies mouth swelling, tongue swelling or urticaria EXAM Physical Exam Const Vital Signs: 08/22/25 11:58 08/22/25 12:02 08/22/25 12:05 Temperature 97.8 F Temperature Source Oral Pulse Rate 72 Respiratory Rate 17 Respiratory Effort Normal Non-Labored Blood Pressure 155/88 H Blood Pressure Mean 110 Pulse Ox 93 88 Oxygen Delivery Method Room Air Room Air Oxygen Flow Rate (L/min) 08/22/25 12:10 Temperature Temperature Source Pulse Rate Respiratory Rate Respiratory Effort Blood Pressure Blood Pressure Mean Pulse Ox 92 Oxygen Delivery Method Nasal Cannula Oxygen Flow Rate (L/min) 2 Positive well nourished and well developed General Appearance ED: well developed and NAD HEENT Reports normocephalic, head/scalp atraumatic and moist mucous membranes Eyes PERRL and EOMs intact bilaterally Neck no lymphadenopathy, supple and no JVD Chest Wall Chest Narrative: General tenderness over the anterior chest wall. There is no subcutaneous emphysema. No palpable bony deformities. No significant ecchymosis is seen. Resp normal respiratory effort and clear to auscultation bilaterally Cardio regular rate, regular rhythm and no murmurs GI normal to inspection, nondistended, normoactive bowel sounds and non-tender Palpation: soft Back/Spine no CVA tenderness and normal ROM Extremity normal to inspection General Extremety ED: Negative for edema General Extremity: Negative for edema Neuro oriented x3 and CN's II-XII intact bilaterally Sensorium / Orientation: alert Motor Exam: strength 5/5 throughout Psych mental status grossly normal Mood & Affect: Negative for depressed or tearful Skin no rashes or lesions noted and no wounds MDM MDM MDM Narrative Medical decision making narrative: Differential diagnosis includes pneumothorax hemothorax rib fracture sternal fracture chest contusion pneumonia pleural effusion Patient appears stable and at baseline. He is in no acute distress he is not febrile and has no increased work of breathing at this time. CT of the chest was obtained which demonstrates a nondisplaced fracture of the right anterior 6th and 7th ribs. There are some opacities noted in the left lower lobe/lingula that could be consistent with anemia. Clinically however he does not appear to have pneumonia. I think it is reasonable to prescribe a short course of doxycycline. Supportive care for the rib fractures return if worsening or concerns History & Record Review Discussion w/independent historian: Patient Additional record(s) reviewed:: Prior outpatient record Radiography Diagnostic Testing: Clinical Impression(s) from Imaging Studies Chest CT 08/22/25 12:23 IMPRESSION: Coronary artery calcification (CAC) is is present Acute nondisplaced fracture of the anterior right 6th and 7th ribs. Airspace opacities in the left lower lobe and lingula consistent with pneumonia. Perinephric fat stranding. Cholelithiasis. Reading Location: [facility] Discharge Plan Triage Chief Complaint: Chest Other ED Provider: Rayo Fitch Dx/Rx/DC Orders Clinical Impression: COPD (chronic obstructive pulmonary disease), Fracture, ribs Instructions: ED Rib Fracture Prescriptions: New doxycycline monohydrate 100 mg capsule 100 mg PO BID Qty: 14 0RF No Action fluticasone propion-salmeterol 500-50 mcg/dose blister with device inhalation Patient Comments: [NO ORIGINAL SIG] albuterol sulfate 90 mcg/actuation HFA aerosol inhaler inhalation albuterol sulfate 2.5 mg /3 mL (0.083 %) solution for nebulization inhalation DIRECTED aspirin [Adult Aspirin Regimen] 81 mg tablet,delayed release (DR/EC) 81 mg PO QDAY atorvastatin 20 mg tablet 20 mg PO QDAY Central-Timothy 18 mg iron-400 mcg-25 mcg tablet 1 tab PO QDAY loratadine [Claritin] 10 mg tablet 10 mg PO QDAY venlafaxine 37.5 mg tablet PO ergocalciferol (vitamin D2) 1,250 mcg (50,000 unit) capsule 1,250 mcg PO QMONTH famotidine 20 mg tablet 20 mg PO BID (DME) FreeStyle Hung 3 Newton Misc See Rx Instructions .ROUTE .MEDSUPPLY Qty: 1 Patient Comments: [NO ORIGINAL SIG] Rx Instructions: As directed loperamide 2 mg capsule 2 mg PO BID PRN insulin aspart U-100 100 unit/mL (3 mL) insulin pen subcut Patient Comments: [NO ORIGINAL SIG] isosorbide mononitrate 30 mg tablet extended release 24 hr 30 mg PO QDAY insulin glargine [Lantus Solostar U-100 Insulin] 100 unit/mL (3 mL) insulin pen 5 unit subcut QAM paroxetine HCl 20 mg tablet 20 mg PO QDAY clopidogrel 75 mg tablet 75 mg PO QDAY primidone 50 mg tablet 50 mg PO BID propranolol 20 mg tablet 20 mg PO BID sodium bicarbonate 650 mg tablet 1,300 mg PO BID tiotropium bromide [Spiriva with HandiHaler] 18 mcg capsule, w/inhalation device 1 cap inhalation QDAY tamsulosin 0.4 mg capsule PO fenofibrate nanocrystallized 145 mg tablet 145 mg PO QDAY acetaminophen 500 mg tablet 500 mg PO Q6 PRN (Reason: pain) diclofenac sodium [Arthritis Pain (diclofenac)] 1 % gel 2 g topical Q6H PRN Rx Instructions: apply to single elbow, wrist or hand; for hand includes palm/fingers/back of hand Primary Care Provider: Mickie Mae Referrals: Mickie Mae MD [Primary Care Provider, Medical] - 1 Week Print Language: Kiswahili Disposition Disposition: Home, Self Care
[2025-08-22 14:00] VITALS: BP 129/61; PULSE 71; RESP 18; O2SAT 97
[2025-08-22 14:10] VITALS: BP 129/61; PULSE 71; RESP 18; TEMP 36.6; O2SAT 97
== END 2025-08-22 18:05 | disposition home or self-care (01) ==
PROVIDERS: Emergency Provider Emergency Medicine; PCP Internal Medicine; Visit Provider Emergency Medicine
DX: R07.9 Chest pain, unspecified (principal); J44.9 Chronic obstructive pulmonary disease, unspecified; S22.41XA Multiple fractures of ribs, right side, initial encounter for closed fracture; Z87.891 Personal history of nicotine dependence; W01.0XXA Fall on same level from slipping, tripping and stumbling without subsequent striking against object, initial encounter; Z79.51 Long term (current) use of inhaled steroids
CPT/HCPCS: 71250; 99284; A4216

== ENCOUNTER → 2025-08-26 05:00 | Outpatient (REF) | payer MEDICARE, MEDICAID, SELFPAY ==
--- OUTSIDE RECORDS SUMMARY | 2025-08-26 04:08 | XMS RPT_ITS | CCD ---
Author Organization [facility] Care Team Providers Care Scrum Project Manager Name Role Phone Sulove, Saksham Unavailable Kamadana, Rochelle Unavailable Cameron Munguia Unavailable [place] Unavailable Claudio, Nancy-Chiew Unavailable PHYLLIS MAE Attending Unavailable CARMELITA, PHYLLIS Referring Unavailable Sulove, Saksham Primary Care Provider Mattadana, Rochelle Unavailable Cameron Munguia Unavailable [place] Unavailable Claudio, Nancy-Chiew Unavailable Unavailable Primary Care Provider Unavailabl e Sulove, Saksham Attending Unavailable Sulove, Saksham Primary Care Unavailable Davi Nelson Attending Unavailable Sulove, Saksham Primary Care Unavailable Davi Nelson Attending Unavailable Sulove, Saksham Referring Unavailable Sulove, Saksham Primary Care Unavailable Davi Nelson Admitting Unavailable Lola Barksdale Admitting Unavailable Lola Barksdale Attending Unavailable Sulove, Saksham Primary Care Unavailable [...] Admitting Unavailable Kamadana, Rochelle Attending Unavailable Lola Barksdale Admitting Unavailable Lola Barksdale Attending Unavailable Esdras, Guillermo Admitting Unavailabl e Esdras, Guillermo Attending Unavailabl e Togliatti, Josh J Attending Unavailabl e Togliatti Josh J Admitting Unavailabl e Lenehan Aquiles P Admitting Unavailable Camiloehan Aquiles P Attending Unavailable Lenehan, Aquiles P Admitting Unavailable Lenehan Aquiles P Attending Unavailable Lola Barksdale Admitting Unavailable Lola Barksdale Attending Unavailable Kamadana, Rochelle Admitting Unavailable Kamadana, Rochelle Attending Unavailable Esdras, Guillermo Admitting Unavailabl e Esdras, Guillermo Attending Unavailabl e Menjivar Tristen A Admitting Unavailable Menjivar, Tristen A Attending Unavailable Esdras, Guillermo Admitting Unavailabl e Esdras, Guillermo Attending Unavailabl e [facility], Phyllis Primary Care Provider [phone] Kamadana, Rochelle Unavailable Cameron Munguia Unavailable [place] Unavailable [phone] ZARRABI, PHYLLIS Primary Care Unavailable BRET FUENTES Attending Unavailable Zarrabi, Phyllis Primary Care Provider RAY SCHERER Attending Unavailable SUMAYA BRADLEY Consulting Unavailabl e ZARRABI, PHYLLIS Primary Care Unavailable RAY SCHERER Admitting Unavailable RAY SCHERER Referring Unavailable ZARRABI, PHYLLIS Primary Care Unavailable Zarrabi, Phyllis Unavailable Kamadana, Rochelle Unavailable AQUILES BAY Admitting Unavailabl e AQUILES [place]AY Referring Unavailabl e YEFRIRRCLEMENCIA, PHYLLIS Primary Care Unavailable Zarrabi, Phyllis Unavailable Unavailable Zarrabi, Phyllis Unavailable Unavailable Sulove, Saksham Unavailable Unavailable Yefrirrclemencia, Phyllis Primary Care Provider Zarrabi, Phyllis Unavailable Claudio, Nancy-Chiew Unavailable Cameron Munguia Unavailable [place] Unavailable Carmelita WILSON, [facility] Primary Care Provider Phyllis Mae MD Unavailable Jonatan WILSON, Rochelle Unavailable Felice PICKETT DO W. Don Unavailable [phone] [place] MD Unavailable González WILSON, Nancy-Chiew Unavailable Carmelita WILSON [facility] Primary Care Provider Phyllis Mae MD Unavailable Jonatan WILSON, Rochelle Unavailable Felice PICKETT DO, W. Don Unavailable [place] MD Unavailable González WILSON, Nancy-Chiew Unavailable Zarrabi, Phyllis Unavailable Unavailable Unavailable Felice PICKETT DO W. Don Unavailable [place] MD Unavailable Phyllis Mae MD Unavailable Unavailable Zarrabi, Phyllis Unavailable Unavailable Sulove, Saksham Unavailable Unavailable Carmelita WILSON, [facility] Primary Care Provider Phyllis Mae MD Unavailable [phone] Thao Cheung MDapna Unavailable [phone] Felice PICKETT DO, W. Don Unavailable [place] MD Unavailable Ellen Claudio MD Unavailable Unavailable Unavailable Juarez Maeanak Unavailable Christopher Galindo Unavailable Phyllis Mae MD Primary Care Provider Phyllis Mae MD Unavailable Rochelle Cheung MD Unavailable [phone] Felice PICKETT DO, W. Don Unavailable [place] MD Unavailable [phone] Ellen Claudio MD Unavailable Carmelita, Dr. Corado [...] Mae MD Primary Care Provider Ashlie WILSON [facility] Primary Care Provider Phyllis Mae Primary Care Unavailable Phyllis Mae [...] Primary Care Provider Phyllis Mae MD Unavailable [phone] Marley Velarde RN Unavailable Unavailable ZARRABI, [...] Unavailable ZARRABI, PHYLLIS Primary Care Unavailable AQU[place] Referring Unavailabl e AQUILES [place] Attending Unavailabl e ZARRABI, PHYLLIS Primary Care Unavailable RICARDO DEJESUS Attending Unavailable [place] Attending Unavailabl e ZARRABI, PHYLLIS Primary Care Unavailable [place] Referring Unavailabl e AQUILES [place] Attending Unavailabl e ZARRABI, PHYLLIS Primary Care Unavailable [place] Referring Unavailabl e AQUILES [place] Attending Unavailabl e ZARRABI, PHYLLIS Primary Care Unavailable [place] Referring Unavailabl e ZARRABI, PHYLLIS Referring Unavailable ZARRABI, PHYLLIS Primary Care Unavailable ZARRABI, PHYLLIS Referring Unavailable ZARRABI, PHYLLIS Primary Care Unavailable ZARRABI, PHYLLIS Primary Care Unavailable ZARRABI, PHYLLIS Primary Care Unavailable ZARRABI, PHYLLIS Primary Care Unavailable Felice PICKETT, DO, WVito Don Unavailable [place] MD Unavailable [phone] ZARRABI, PHYLLIS Primary Care Unavailable [place] Attending Unavailabl e FIOR FORBES Attending Unavailable ZARRABI, PHYLLIS Primary Care Unavailable HASSMANN II, BUDDY ABDI Attending Un available ZARRABI, PHYLLIS Primary Care Unavailable FIOR FORBES Attending Unavailable ZARRABI, PHYLLIS Primary Care Unavailable WATERSDAVID Attending Unavailab le ZARRABI, PHYLLIS Primary Care Unavailable ZARRABI, PHYLLIS Primary Care Unavailable HASSMANN II, BUDDY ABDI Referring Un available HASSMANN II, BUDDY ABDI Admitting Un available ZARRABI, PHYLLIS Primary Care Unavailable HASSMANN II, BUDDY ABDI Attending Un available ZARRABI, PHYLLIS Primary Care Unavailable DAVID WATERS Attending Unavailab le ZARRABI, PHYLLIS Primary Care Unavailable HASSMANN II, BUDDY ABDI Attending Un available ZARRABI, PHYLLIS Primary Care Unavailable HASSMANN II, BUDDY ABDI Attending Un available ZARRABI, PHYLLIS Primary Care Unavailable CRASKE III, W. DON Admitting Unavailable CRASKE III, W. DON Attending Unavailable CRASKE III, W. DON Referring Unavailable ZARRABI, PHYLLIS Primary Care Unavailable HASSMANN II, BUDDY ABDI Attending Un available Dr. Phyllis Mae MD Primary Care Provider [phone] Dr. Phyllis Mae MD Attending Provider Dr. Phyllis Mae MD Referring Provider [phone] ROCHELLE CHEUNG Attending Provider ROCHELLE CHEUNG Referring [...] Unavailable Dr. Joel Slaughter DO Emergency Provider [facility] DO, Dr. Maldonado Attending Provider Samy WILSON, Manohar Referring Provider Unavailable Carmelita WILSON, Dr. Corado Referring Provider [phone] Denisse WILSON, Deshaun Attending Provider Carmelita WILSON, Dr. Corado [facility] Dr. Maldonado Attending Physician [facility], Dr[facility] Maldonado [facility] Samy WILSON, Manohar Attending Physician Unavailgatito Salcedo MD, Deshaun Attending Physician Jenni WILSON, Dr. Doll Attending Physician Unavail able Zarrabi, Phyllis Primary Care Unavailable Joel Slaughter Attending Unavailabl Rayo Gimenez Attending Unavailable Zarrabi, Phyllis Primary Care Unavailable QUEZADA, SEVEN Attending Unavailable QUEZADA, SEVEN Referring Unavailable Zarrabi, Phyllis Primary Care Unavailable Zarrabi, Phyllis Primary Care Unavailable Deshaun Salcedo Attending Unavailable Zarrabi, Phyllis Referring Unavailable Zarrabi, Phyllis Primary Care Unavailable Zarrabi, Phyllis Attending Unavailable Zarrabi, Phyllis Referring Unavailable QUEZADA, SEVEN Attending Unavailable QUEZADA, SEVEN Referring Unavailable Zarrabi, Phyllis Primary Care Unavailable Gudla OLS, Sharmila Attending Unavailable Zarrabi, Phyllis Primary Care Unavailable Zarrabi, Phyllis Primary Care Unavailable Samy OLS, Manohar Attending Unavailable Zarrabi, Phyllis Primary Care Unavailable Samy OLS, Manohar Attending Unavailable Samy OLS, Manohar Referring Unavailable Gudla OLS, Sharmila Attending Unavailable Gudla OLS, Sharmila Referring Unavailable Zarrabi, Phyllis Primary Care Unavailable Zarrabi, Phyllis Primary Care Unavailable Samy OLS, Manohar Attending Unavailable Gudla OLS, Sharmila Attending Unavailable Gudla OLS, Sharmila Referring Unavailable Zarrabi, Phyllis Primary Care Unavailable Samy, Manohar Attending Unavailable Samy, Manohar Referring Unavailable Zarrabi, Phyllis Primary Care Unavailable Samy OLS, Manohar Attending Unavailable Zarrabi, Phyllis Primary Care Unavailable Gudla OLS, Sharmila Attending Unavailable [facility] Unavailable Allergies Allergy Classification Reported Allergen(s) Allergy Type Date of Onset Reaction(s) Facility Quinolones (antibiotic) (16 sources) levoFLOXacin; 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: [Levaquin] Drug Allergy 1 GI Intolerance [facility] varenicline (16 sources) varenicline; 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: [varenicline] Drug Allergy 8 Swelling [facility] (20 sources) varenicline; 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: [Unknown] Drug Allergy 8 Swelling [facility] (20 sources) levoFLOXacin; 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: [Levaquin] Drug Allergy Vomiting [facility] Work Phone: (20 sources) levoFLOXacin; 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: [LEVOFLOXACIN] Drug Allergy 1 GI Intolerance, Other [facility] Comment on above: vomiting Medications Current Medications Medication Drug Class(es) Dates Sig (Normalized) Sig (Original) acetaminophen 500 mg oral tablet (20 sources) Start: 04-17-2025 take 1 tablet by mouth every six hours as needed for pain Start: 04-29-2024 take 1 tablet by silviano [...] pain or fever . 0 04/29/2021 Discontinued [id number] 200 actuat albuter ol 0.09 mg/actuat metered dose inhaler (20 sources) beta2-Adrenergic Agonist Start: 04-17-2025 Start: 04-17-2025 Start: 05-14-2024 End: 12-05-2024 albuterol 2.5 mg [...] Every 4 hours PRN, wheezing, Starting on 6/29/21 at 1718 Start: 02-08-2021 take 2 puff(s) [...] Source=Surescripts, Medication=ALBUTEROL SUL 2.5 MG/3 ML SOLN, OriginatingSource=[facility]/pharmacy #[id number], OriginatingProvider=SHAMIR LOLA, Duration=30, Ukxazdib=313, Refills=11, Date Last Modified/Filled=14-May-2020 take 2 puff(s) by in halation every four hours as needed ALBUTEROL HFA 90 MCG INHALER ; 2 puff(s) inhaled every 4 hours, As Needed Quantity: 0 Refills: 11 Ordered: 10-Jun-2020 Anya Bustillos Generic Substitution Allowed Comments: Source=Surescripts, Medication=ALBUTEROL HFA 90 MCG INHALER, OriginatingSource=[facility]/pharmacy #[id number], OriginatingProvider=SHAMIR LOLA, Duration=16, Quantity=6.7, Refills=11, Date Last Modified/Filled=15-Apr-2020 take [...] above: Source=Surescripts, Medication=ALBUTEROL HFA 90 MCG INHALER, OriginatingSource=[facility]/pharmacy #[id number], OriginatingProvider=LOLA BARKSDALE, Duration=16, Quantity=6.7, Refills=11, Date Last Modified/Filled=15-Apr-2020 Source=Surescripts, Medication=ALBUTEROL SUL 2.5 MG/3 ML SOLN, OriginatingSource=[facility]/pharmacy #[id number], OriginatingProvider=LOLA BARKSDALE, Duration=30, Iejgvbmx=875, Refills=11, Date Last Modified/Filled=14-May-2020 albuterol 90 mcg/actuation [...] Taking at Discharge) Comment on above: Source=Surescripts, Medication=AMLODIPINE BESYLATE 2.5 MG TAB, OriginatingSource=[facility]/pharmacy #[id number], OriginatingProvider=AQUILES BAY, Duration=90, Quantity=90, Refills=11, Date Last Modified/Filled=15-Nov-2019 aspirin 81 mg delayed release oral tablet (20 sources) Platelet Aggregation Inhibitor, Nonsteroidal Anti-inflammatory Drug Start: 04-17-2025 take 1 tablet by mouth once daily Start: 06-16-2020 End: 09-09-2024 take 1 tablet by mouth once daily aspirin 81 MG EC tablet Take 1 (one) tablet (81 mg total) by mouth daily . 90 tablet 3 09/09/2024 Active atorvastatin 20 mg oral tablet (20 sources) HMG-CoA Reductase Inhibitor Start: 04-17-2025 take 1 tablet by mouth once daily Start: 05-28-2024 take 2 tablets by mo uth once daily atorvastatin (Lipitor) 20 mg tablet [...] (Suppress CancelRx Message to Pharmacy)) blood-glucose meter Mis (20 sources) Start: 09-09-2024 blood-glucose meter [facility] Indications: Type 2 diabetes mellitus with stage 3b chronic kidney disease, with long-term current use of insulin (HCC) Use to check blood sugar as needed to calibrate CGM . 1 each 09/09/2024 Active Start: 12-27-2019 End: 04-06-2021 blood-glucose meter [facility] Ind ications: IDDM (insulin dependent diabetes mellitus) Accu-chek Elli plus meter. Use as directed 4 times daily. . 1 each 0 12/27/2019 04/06/2021 Discontinued Start: 12-27-2019 blood-glucose meter [facility] Indications: IDDM (insulin dependent diabetes mellitus) Accu-chek Elli plus meter. Use as directed 4 times daily. . 1 each 0 12/27/2019 Active Start: 12-27-2019 blood-glucose meter [facility] Indications: IDDM (insulin dependent diabetes mellitus) (HCC) Accu-chek Elli plus meter. Use as directed 4 times daily. . 1 each 0 12/27/2019 Active blood-glucose meter, wireles s Kit (20 sources) blood-glucose me ter, wireless Kit by Miscellaneous route Use to check BG 2x daily. DX ode E11.76 . Active blood-glucose me ter, wireless Kit by Miscellaneous route Use to check BG 2x daily. DX ode E11.76 . 0 Active blood-glucose meter,continuo us (FreeStyle Hung 3 [place]) [facility] (2 sources) Start: 11-25-2024 blood-glucose meter,continuous (FreeStyle Hung 3 [place]) [facility] Indications: Type 2 diabetes mellitus with stage [...] 11/25/2024 Active Blood-Glucose,Receive r,Cont (Freestyle Hung 3 [place]) misc (2 sources) Start: 04-17-2025 Blood-Glucose,Rece iver,Cont (Freestyle Hung 3 [place]) misc Active NMA .ROUTE .MEDSUPPLY April 17, [...] take 1 tablet by mouth once daily Comment on above: Source=Alexx, Medication=CLOPIDOGREL 75 MG TABLET, OriginatingSource=[facility]/pharmacy #[id number], OriginatingProvider=CARMELITA PHYLLIS, Duration=90, Quantity=90, Refills=3, Date Last Modified/Filled=16-Nov-2019 diclofenac sodium 0.01 mg/mg topical gel (20 sources) Nonsteroidal Anti-inflammatory Drug Start: 04-17-2025 Start: 03-07-2023 diclofenac sod ium (Voltaren) 1 [...] Active docusate sodium 50 mg / sennosides, assisted 8.6 mg oral tablet (6 sources) Start: 03-12-2021 End: 04-11-2021 take 1 tablet by mouth once daily senna-docusate (SENNA-S) 8.6-50 mg Take 1 (one) tablet by mouth nightly . 30 tablet 0 03/12/2021 04/11/2021 Active ergocalciferol 1.25 mg oral capsule (2 sources) Provitamin D2 Compound Start: 04-17-2025 famotidine 20 mg oral tablet (20 sources) Histamine-2 Receptor Antagonist Start: 04-17-2025 take 1 tablet by mouth twice daily Start: 03-03-2022 End: 03-07-2023 take 1 tablet [...] Discontinued (Duplicate order) Comment on above: Source=Surescripts, Medication=FAMOTIDINE 20 MG TABLET, OriginatingSource=[facility]/pharmacy #[id number], OriginatingProvider=PHYLLIS MAE, Duration=90, Gpfpldsa=295, Refills=11, Date Last Modified/Filled=02-Apr-2020 fenofibrate 145 mg oral tablet (20 sources) Peroxisome Proliferator Receptor alpha Agonist Start: 3 End: 5 take 1 tablet by mouth once daily Start: 10-04-2021 End: 08-22-2023 take 1 tablet by mouth once daily fenofibrate (Tricor) 54 mg tablet Indications: Pure hyperglyceridemia TAKE 1 TABLET BY MOUTH EVERY DAY 90 tablet 3 03/06/2023 03/07/2023 Discontinued (Duplicate order) Fluticasone Propion-Salmeter ol (20 sources) Corticosteroid, beta2-Adrenergic Agonist Start: 04-17-2025 Start: 04-17-2025 Fluticasone Pr opion-Salmeterol 500-50 mcg/dose blister with device Active INHALATION April 17, 2025 12:00am Start: 03-18-2024 take 1 puff(s) by mo uth twice daily fluticasone propion-salmeteroL (Advair Diskus) 500-50 mcg/dose diskus inhaler Indications: Chronic obstructive pulmonary disease, unspecified INHALE 1 PUFF BY MOUTH TWICE A DAY 60 each 11 03/18/2024 Active Start: 03-06-2023 take 1 puff(s) [...] Comment on above: Source=Surescripts, Medication=WIXELA 500-50 INHUB, OriginatingSource=[facility]/pharmacy #[id number], OriginatingProvider=LOLA BARKSDALE, Duration=90, Pjfufesd=496, Refills=3, Date Last Modified/Filled=28-May-2020 FreeStyle Hung 3 [place] misc (1 source) Start: FreeStyle Hung 3 [place] misc 1 Device. 11/25/2024 Active 3 ml [...] 11/07/2024 Active 3 ml insulin glargine 100 un t/ml pen injector (20 sources) Insulin Analog Start: 04-17-2025 Start: 10-08-2024 Lantus Solosta r U-100 Insulin [...] day Quantity: 0 Refills: 0 [facility]: [facility] Generic Substitution Allowed inject 30 [IU] by danielson bcutaneous injection twice daily insulin glargine (LANTUS) 100 unit/mL injection Inject 30 Units under the skin 2 (two) times a day . 0 Active 3 ml insulin aspart, human 1 00 unt/ml pen injector (20 sources) Insulin Analog Start: 04-17-2025 Start: 09-10-2024 inject 5 [IU] by sub [...] Vasodilator Start: 04-17-2025 take 1 tablet by silviano th once daily, then take 1 tablet by mouth every twenty-four hours Start: 04-28-2021 End: 04-30-2021 take 60 mg [...] Source=Surescripts, Medication=ISOSORBIDE MONONIT ER 30 MG TB, OriginatingSource=[facility]/pharmacy #[id number], OriginatingProvider=ROCHELLE CHEUNG, Duration=90, Quantity=90, Refills=1, Date Last Modified/Filled=01-Apr-2020 Lantus Solostar 100 Unit/Ml (3 Ml) Subcutaneous Insulin Pen (4 sources) Star t: 08-31 16 LANTUS SOLOSTAR 100 unit/mL (3 mL) InPn INJECT 30 UNITS SUBCUTANEOUSLY TWICE A DAY 11 09/24/2016 Active loperamide hydrochloride 2 mg oral capsule (2 sources) Opioid Agonist Star t: 03-30 25 take 1 capsule by mouth twice daily as needed loratadine 10 mg oral tablet (20 sources) Star t: 03-30 take 1 tablet by mouth once daily Start: 04-27-2021 End: 05-11-2021 take 10 mg [...] on above: Source=Surescripts, Medication=LOVASTATIN 10 MG TABLET, OriginatingSource=[facility]/pharmacy #[id number], OriginatingProvider=PHYLLIS MAE, Duration=90, Quantity=90, Refills=11, Date Last Modified/Filled=07-Nov-2019 magnesium oxide 400 mg oral tablet (16 sources) magnesium oxide 400 mg magnesium Tab Take by mouth 2 (two) times a day . 0 Active vzcixemy-qndn-SP-sheldon cium-mins 9 mg iron-400 mcg Tab (20 sources) kteybssq-jjgx-IH -sheldon cium-mins 9 mg iron-400 mcg Tab Take 1 (one) tablet by mouth daily . Active wzjqatfj-twqp-JI -calcium-mins 9 mg iron-400 mcg Tab Take 1 (one) tablet by mouth daily . 0 Active kbrngbrn-juov-QR -calcium-mins 9 mg iron-400 mcg Tab Take 1 tablet by mouth daily . 0 Active multivitamin with minerals (ddsdsfytkatx-lgiu-bpqrt acid) tablet (9 sources) Start: 12-05-2024 take 1 tablet by mouth once daily multivitamin with minerals (uxqonquvboas-owyv-fqolp acid) tablet Indications: Healthcare maintenance Take 1 tablet by mouth once daily. 30 tablet 11 12/05/2024 Active End: 12-05-2024 take 1 tablet by mouth once daily multivitamin with minerals (ybqzutajawms-giht-bfdvo acid) tablet Take 1 tablet by mouth once daily. 12/05/2024 Discontinued (Reorder) take 1 tablet by silviano th once daily multivitamin with minerals (cyiudpysgkqq-pbsi-nidww acid) tablet Take 1 tablet by mouth once daily. Active take 1 tablet by silviano th once daily multivitamin with minerals (zsclclwenijl-nyhk-lecfl acid) tablet Take 1 tablet by mouth once daily. 0 Active Multivitamin With Minerals Tablet (12 sources) take 1 tablet by mouth once daily multivitamin with minerals tablet Take 1 tablet by mouth daily. Active Ckesglmigtyg-Jdu-Xogb-Fa-V it K (Central-Timothy) 18 mg iron-400 mcg-25 mcg tablet (2 sources) Start: 04-17-2025 take 1 tablet by mouth once daily Start: 04-17-2025 take 1 tablet by silviano th once daily Jcqxweiingfe-Bjm-Wjim-Fa-Vit K (Central-Timothy) 18 mg iron-400 mcg-25 mcg [...] above: Source=Surescripts, Medication=nitroglycerin 0.4 mg sublingual tablet, OriginatingSource=[id number], OriginatingProvider=, , Duration=7, Quantity=25, Refills=5, Date Last [...] take 1 tablet by mouth once daily Start: 11-08-2024 take 1 tablet by silviano [...] Source=Surescripts, Medication=PAROXETIN E HCL 20 MG TABLET, OriginatingSource=[facility]/pharmacy #[id number], OriginatingProvider=PHYLLIS MAE, Duration=90, Quantity=90, Refills=4, Date [...] Message to Pharmacy)) take 1 capsule by [facility] twice daily as needed for pain Lyrica 75 MG Oral Capsule 1 cap BID prn pain Quantity: 0 Refills: 0 Ordered: 03-Sep-2019 DO Active primidone 50 mg oral tablet (20 sources) Anti-epileptic Agent Start: 04-17-2025 take 1 tablet by mouth twice daily Start: 05-14-2024 End: 11-05-2024 take 1 tablet [...] Active Start: 08-13-2022 take 2 tablets by [facility] once daily primidone (MYSOLINE) 50 MG tablet [...] on above: Source=Surescripts, Medication=PRIMIDONE 50 MG TABLET, OriginatingSource=[facility]/pharmacy #[id number], OriginatingProvider=PHYLLIS MAE, Duration=30, Quantity=30, Refills=11, Date Last Modified/Filled=19-May-2020 propranolol hydrochloride 20 mg oral tablet (20 sources) beta-Adrenergic Danny Start: 04-17-20 take 1 tablet by mouth twice daily Start: 02-27-2024 End: 02-26-2025 take 1 tablet by mouth twice daily propranolol (Inderal) 20 mg tablet Indications: Hypertension associated with type 2 diabetes mellitus (Multi) Take 1 tablet (20 mg) by mouth 2 times a day. 60 tablet 11 02/27/2024 02/26/2025 Active Start: 09-09-2022 take 1 capsule by [facility] every twenty-four hours Propranolol HCl [...] above: Source=Surescripts, Medication=PROPRANOLOL ER 80 MG CAPSULE, OriginatingSource=[facility]/pharmacy #[id number], OriginatingProvider=AQUILES BAY, Duration=90, Quantity=90, Refills=3, Date Last Modified/Filled=28-May-2020 sildenafil [...] take 2 tablets by mouth twice daily Start: 12-11-2022 take 2 tablets by mo uth twice daily sodium bicarbonate 650 mg tablet [...] to Pharmacy)) take 2 tablets by mo uth in the morning, then take 2 tablets [...] Allowed Comments: Source=Surescripts, Medication=SPIRONOLACTONE 25 MG TABLET, OriginatingSource=[facility]/pharmacy #[id number], OriginatingProvider=ROCHELLE CHEUNG, Duration=90, Quantity=90, Refills=1, Date Last Modified/Filled=07-Apr-2020 Comment on above: Source=Surescripts, Medication=SPIRONOLACTONE 25 MG TABLET, OriginatingSource=[facility]/pharmacy #[id number], OriginatingProvider=JONATAN, ROCHELLE, Duration=90, Quantity=90, Refills=1, Date Last Modified/Filled=07-Apr-2020 [...] (20 sources) alpha-Adrenergic Danny Star t: 03-30 Start: 12-20-2023 take 1 capsule by mo [facility] once daily tamsulosin (Flomax) 0.4 mg 24 hr capsule Indications: Benign prostatic hyperplasia with lower urinary tract symptoms , Other obstructive and reflux uropathy TAKE 1 CAPSULE BY MOUTH EVERY DAY 90 capsule 3 12/20/2023 Active Start: 06-01-2021 take 1 tablet by silviano once daily Tamsulosin HCl - 0.4 MG [...] 05/07/2021 06/06/2021 Active take 1 capsule by [facility] once daily tamsulosin (FLOMAX) 0.4 mg capsule Take 1 (one) capsule (0.4 mg total) by mouth daily . Active tiotropium 0.018 mg inhalation powder (20 sources) Anticholinergic Start: 04-17-2025 take 1 capsule by inhalation once daily Start: 12-05-2024 take 1 capsule by in [...] Chronic obstructive pulmonary disease, unspecified COPD type ([facility]) Place 1 capsule (18 mcg) into inhaler and inhale once daily. AT THE SAME TIME EVERY DAY VIA HANDIHALER 90 capsule 3 08/22/2023 Active Start: 09-05-2017 SPIRIVA WITH H ANDIHALER 18 mcg inhalation capsule Start: 09-05-2017 SPIRIVA WITH H ANDIHALER 18 mcg inhalation capsule Comment on above: Source=SurescriElectronifie, Medication=SPIRIVA 18 MCG CP-HANDIHALER, OriginatingSource=[facility]/pharmacy #[id number], OriginatingProvider=SHAMIR LOLA, Duration=90, Quantity=90, Refills=3, Date Last Modified/Filled=05-Apr-2020 traMADol [...] Closed fracture of right hip, initial encounter ([facility]) Take 1 (one) tablet (50 mg total) by mouth every 6 (six) hours as needed (Days supply per fill: 3) . 18 tablet 0 03/12/2021 03/15/2021 triamcinolone acetonide 1 mg/ml topical cream (20 sources) Corticosteroid Start: 12-19-2023 End: 03-26-2025 triamcinolone (KENALOG) 0.1 % cream Apply topically 2 (two) times a day . 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/pharmacy #[id number], OriginatingProvider=PHYLLIS MAE, Duration=30, Quantity=90, Refills=5, Date [...] complication, with long-term current use of insulin ([facility]) To check BS QID 1 each 0 [...] above: Source=Surescripts, Medication=FOLIC ACID 1 MG TABLET, OriginatingSource=[facility]/pharmacy #[id number], OriginatingProvider=LANCE MODI, Duration=90, Quantity=90, Refills=11, Date Last Modified/Filled=19-Apr-2020 gemfibrozil [...] scale Quantity: 0 Refills: 0 Ordered: 04-Jan-2021 Hauenstein, Eboni Generic Substitution Allowed labetalol hydrochloride 100 mg [...] above: Source=Surescripts, Medication=LISINOPRI L 40 MG TABLET, OriginatingSource=[facility]/pharmacy #[id number], OriginatingProvider=PHYLLIS MAE, Duration=90, Quantity=90, Refills=11, Date Last [...] Quantity: 60 Refills: 11 Ordered: 08-Feb-2021 Lance Modi MD Start : 18-Dec-2019 Active Start: 12-18-2019 [...] above: Source=Surescripts, Medication=METFORMIN HCL 500 MG TABLET, OriginatingSource=[facility]/pharmacy #[id number], OriginatingProvider=PHYLLIS MAE, Duration=90, Cnidxvgi=199, Refills=11, Date Last Modified/Filled=29-Apr-2020 methylPREDNISolone 4 MG [...] (Discontinued by another clinician) Comment on above: Source=Surescrieddie, Medication=OMEPRAZOLE DR 20 MG CAPSULE, OriginatingSource=[facility]/pharmacy #[id number], OriginatingProvider=PHYLLIS MAE, Duration=90, Quantity=90, Refills=5, Date Last [...] ondansetron (ZOFRAN-ODT) disintegrating tablet 4 mg [place] (4 sources) [place] USE BID WITH LANTUS Refills: 0 Active [place] USE BID WITH LANTUS Refills: 0 DO Active [place] (1 source) [place] USE BID WITH LANTUS Refills: 0 DO [...] Quantity: 1 Refills: 0 Ordered: 28-Dec-2020 Lance Modi MD Start : 28-Dec-2020 End : 01-Jun-2021 Complete Start: 12-28-2020 Pneumovax 23 2 5 MCG/0.5ML Injection Injectable inject 0.5 mL once Quantity: 1 Refills: 0 Ordered: 28-Dec-2020 Lance Modi MD Start : 28-Dec-2020 Active predniSONE 10 [...] (Stop Taking at Discharge) sodium zirconium cyclosilicate 99645 mg powder for oral suspension (1 source) [...] Onset: 04-14-2021 Chronic Deficiency and other anemia (20 sources) Anemia; 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: [Anemia, unspecified] Onset: 07-06-2017 Resolved: 05-28-2024 03-15-2021 Episodic Deficiency and other anemia (6 sources) Anemia, [...] 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: [Hyperkalemia] Episodic Fracture of lower limb (5 sources) Closed fracture of ankle; 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: [Other [...] [Personal history of traumatic fracture] Episodic Other liver diseases (9 sources) Steatosis [...] 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: [Cigarette Smoker] Episodic Superficial injury; contusion (3 sources) Contusion of right knee; 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: [Contusion [...] (20 sources) Acute renal failure syndrome; 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: [Hpnks-de-jdqlnlm renal failure] Onset: 04-06-2021 Resolved: 04-29-2021 04-06-2021 [...] 07-25-2024 07-25-2024 Episodic Other aftercare (8 sources) [facility] (current) use of insulin; 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: [ocean transportation intermediary (current) use of insulin] Onset: 02-27-2023 Episodic [...] head; 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: [Head injury, unspecified] Episodic Other injuries and conditions due to external causes (1 source) Unspecified injury of unspecified lower leg, initial encounter; 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: [Unspecified injury of unspecified lower leg, initial encounter] Onset: 04-14-2025 Episodic Other lower respiratory disease (20 sources) [...] Test Name Value Interpretation Reference Range Facility Chest without Contraston Chest without Contrast [facility] Imaging Services [address] [place], [place] [address] Chest without Contrast MR#: [id number] Acct: [id number] Name: STEVO GERMAIN Rep #: [id number] : 1950 M 75 From: Gianluca Hale MD PCP: PHYLLIS MAE Status: REG ER Study: Chest without Contrast Date of Exam: 08/22/25 Exam# [id number] Ordering Dr: Rayo Fitch DO PROCEDURE: CHEST WITHOUT CONTRAST 08/22/2025 REASON FOR EXAM: RIB ANTERIOR CHEST WALL INJURY TECHNIQUE: Chest CT without contrast. Coronal and Sagittal reconstruction series were provided. One or more dose reduction techniques were used (e.g., Automated exposure control, adjustment of the mA and/or kV according to patient size, use of iterative reconstruction technique RADIATION DOSE SUMMARY: CTDlvol: 7.77 mGy DLP: 309.59 mGycm COMPARISON: None FINDINGS: Hardware: Monitor electrodes overlie the chest. Lymph nodes: No lymphadenopathy. Heart and Vasculature: Mild cardiomegaly. Coronary Artery Calcifications: Atherosclerotic calcifications of the coronary arteries. Lungs and Airways: Airspace opacities in the left lower lobe and lingula consistent with pneumonia. Pleura: No pleural effusion or pneumothorax. Upper Abdomen: Perinephric fat stranding. Cholelithiasis. Bones: Acute nondisplaced fracture of the anterior right 6th and 7th ribs. Old left rib fractures. CT/Chest without Contrast IMPRESSION: Coronary artery calcification (CAC) is is present Acute nondisplaced fracture of the anterior right 6th and 7th ribs. Airspace opacities in the left lower lobe and lingula consistent with pneumonia. Perinephric fat stranding. Cholelithiasis. Reading Location: [facility] CC: Dr. Rayo Fitch DO; PHYLLIS MAE Table Games Dual Rate Supervisor: Signed Normal [facility] Emergency Department Summary on 08-22-2025 Emergency Department Summary [facility] Medical Records Department [address] [place] [address] Emergency Department Summary 08/22/25 MR#: [id number] Acct: [id number] Name: STEVO GERMAIN Rep #: [id number] : 1950 75 From: Rayo Fitch DO PCP: PHYLLIS MAE Status:REG ER Location: ED HPI History of Present Illness Chief Complaint: Chest Other Informant: patient, EMS and SNF Narrative Narrative: 75-year-old male with history of COPD presenting to the emergency room with chest pain. Patient states that on Monday he was coming out of the bathroom when he tripped over the bar on the ground falling forward and injuring his chest. Per retirement he had rib x-rays that were negative but he has continued discomfort and was sent to the emergency room for further evaluation. Patient denies any shortness of breath. He notes a chronic cough due to COPD. He states he does not normally wear oxygen. He denies any head injury. He denies any new back pain since the fall. He states that they put a lidocaine patch on his right chest. He notes generalized soreness. [facility] Home Medications ???Medication ???Instructions ???Recorded ???Last Taken ???Type acetaminophen 500 mg tablet 500 mg PO Q6 PRN pain 04/17/25 Unk nown History albuterol sulfate 2.5 mg/3 mL mg inhalation DIRECTED 04/17/25 Unknown History (0.083 %) solution for nebulization albuterol sulfate 90 mcg/actuation inhalation 04/17/25 Unknown Hist ory aerosol inhaler aspirin 81 mg tablet,delayed 81 mg PO QDAY 04/17/25 Unknown His tory release (Adult Aspirin Regimen) atorvastatin 20 mg tablet 20 mg PO QDAY 04/17/25 Unknown His tory blood-glucose,foreign student adviser,c ont #1 ea 04/17/25 Unknown History (FreeStyle Hung 3 [place]) clopidogrel 75 mg tablet 75 mg PO QDAY 04/17/25 Unknown His tory diclofenac sodium 1 % topical gel 2 g topical Q6H PRN 04/17/25 Unkn own History (Arthritis Pain (diclofenac)) ergocalciferol (vitamin D2) 1,250 1,250 mcg PO QMONTH 04/17/25 Unkn own History mcg (50,000 unit) capsule famotidine 20 mg tablet 20 mg PO BID 04/17/25 Unknown Hist ory fenofibrate nanocrystallized 145 145 mg PO QDAY 04/17/25 Unknown Hi story mg tablet fluticasone 500 mcg-salmeterol 50 inhalation 04/17/25 Unknown Histo ry mcg/dose blistr powdr for inhalation insulin aspart U-100 100 unit/mL subcut 04/17/25 Unknown History (3 mL) subcutaneous pen insulin glargine 100 unit/mL (3 5 unit subcut QAM 04/17/25 Unknown History mL) subcutaneous pen (Lantus Solostar U-100 Insulin) isosorbide mononitrate 30 mg 30 mg PO QDAY 04/17/25 Unknown His tory tablet,extended release 24 hr loperamide 2 mg capsule 2 mg PO BID PRN 04/17/25 Unknown H istory loratadine 10 mg tablet (Claritin) 10 mg PO QDAY 04/17/25 Unknown H istory multivit with minerals-iron 18 1 tab PO QDAY 04/17/25 Unknown His tory mg-folic ac 400 mcg-vit K 25 mcg tablet (Central-Timothy) paroxetine HCl 20 mg tablet 20 mg PO QDAY 04/17/25 Unknown His tory primidone 50 mg tablet 50 mg PO BID 04/17/25 Unknown Hist ory propranolol 20 mg tablet 20 mg PO BID 04/17/25 Unknown Hist ory sodium bicarbonate 650 mg tablet 1,300 mg PO BID 04/17/25 Unknown H istory tamsulosin 0.4 mg capsule mg PO 04/17/25 Unknown History tiotropium bromide 18 mcg capsule 1 cap inhalation QDAY 04/17/25 Un known History with inhalation device (Spiriva with HandiHaler) venlafaxine 37.5 mg tablet mg PO 04/17/25 Unknown History doxycycline monohydrate 100 mg 100 mg PO BID #14 CAPSULES 5 Unknown Rx capsule Allergy/AdvReac Type Severity Reaction Status Date / Time No Known Allergies Allergy Verified 08/22/25 11:57 Social History housing: retirement Smoking Status: Former smoker ROS ROS ED Constitutional Constitutional ED: Denies chills, fever(s) or weight loss Eyes Eyes: Denies change in vision or diplopia ENT ENT ED: Denies ear pain, rhinorrhea or sore throat Cardiovascular Cardiovascular: Reports chest pain; Denies orthopnea, palpitations or racing heartbeat Respiratory/Chest Respiratory/Chest: Reports cough; Denies dyspnea or orthopnea Gastrointestinal Gastrointestinal: Denies abdominal pain, diarrhea, nausea or vomiting Genitourinary Genitourinary ED: Denies dysuria, hematuria or urinary frequency Musculoskeletal Musculoskeletal: Denies arthralgias or myalgias Integumentary Denies abscess or rash Neurologic Neurologic: Denies headache(s) or weakness Psychiatric Psychiatric: Denies anxiety, depression, suicidal ideation or suicidal thoughts Endocrine Endocrinology: Denies polydipsia, polyphagia or polyuria Allergic/Immunologic Allergic/Immunologic ED: Denies mouth swelling, tongue swelling or urticaria EXAM (more content not included)... Normal [facility] CBC-Complete Blood Cnt No Di ffon 08-06-2025 Erythrocyte distribution width (RBC) [Ratio] 14.3 % Normal 11.6-14.6 [facility] Comment on above: Performed By: #### L 501.9520, L506.0250, L502.0250, L501.5200, L3300.9910, L500.4050, L7400.3000, L503.0105, L503.6150, L503.6550, L503.6075, L100.0100, L506.0400 #### [facility] Laboratory [address] [place], [address] Hematocrit (Bld) [Volume fraction] 34.6 % Low 40-54 [facility] Comment on above: Performed By: #### L 501.9520, L506.0250, L502.0250, L501.5200, L3300.9910, L500.4050, L7400.3000, L503.0105, L503.6150, L503.6550, L503.6075, L100.0100, L506.0400 #### [facility] [address] [place], [address] Hemoglobin (Bld) [Mass/Vol] 11.5 g/dL Low 13.0-16.5 [facility] Comment on above: Performed By: #### L 501.9520, L506.0250, L502.0250, L501.5200, L3300.9910, L500.4050, L7400.3000, L503.0105, L503.6150, L503.6550, L503.6075, L100.0100, L506.0400 #### [facility] [address] [place], [address] MCH (RBC) [Entitic mass] 32.1 pg High 27.0-32.0 [facility] Comment on above: Performed By: #### L 501.9520, L506.0250, L502.0250, L501.5200, L3300.9910, L500.4050, L7400.3000, L503.0105, L503.6150, L503.6550, L503.6075, L100.0100, L506.0400 #### [facility] [address] [place], [address] MCHC (RBC) [Mass/Vol] 33.2 g/dL Normal 32-36 [facility] Comment on above: Performed By: #### L 501.9520, L506.0250, L502.0250, L501.5200, L3300.9910, L500.4050, L7400.3000, L503.0105, L503.6150, L503.6550, L503.6075, L100.0100, L506.0400 #### [facility] [address] [place], [address] MCV (RBC) [Entitic vol] 96.6 fL High 80-94 [facility] Comment on above: Performed By: #### L 501.9520, L506.0250, L502.0250, L501.5200, L3300.9910, L500.4050, L7400.3000, L503.0105, L503.6150, L503.6550, L503.6075, L100.0100, L506.0400 #### [facility] [address] [place], [address] Platelet mean volume (Bld) [Entitic vol] 10.8 fL Normal 6.2-12.0 [facility] Comment on above: Performed By: #### L 501.9520, L506.0250, L502.0250, L501.5200, L3300.9910, L500.4050, L7400.3000, L503.0105, L503.6150, L503.6550, L503.6075, L100.0100, L506.0400 #### [facility] [address] [place], [address] Platelets (Bld) [#/Vol] 360 10*3/uL Normal 150-450 [facility] Comment on above: Performed By: #### L 501.9520, L506.0250, L502.0250, L501.5200, L3300.9910, L500.4050, L7400.3000, L503.0105, L503.6150, L503.6550, L503.6075, L100.0100, L506.0400 #### [facility] [address] [place], [address] RBC (Bld) [#/Vol] 3.58 10*6/uL Low 4.6-6.2 [facility] Comment on above: Performed By: #### L 501.9520, L506.0250, L502.0250, L501.5200, L3300.9910, L500.4050, L7400.3000, L503.0105, L503.6150, L503.6550, L503.6075, L100.0100, L506.0400 #### [facility] [address] [place], [address] RDW SD 51.2 fl High 35.1-43.9 [facility] Comment on above: Performed By: #### L 501.9520, L506.0250, L502.0250, L501.5200, L3300.9910, L500.4050, L7400.3000, L503.0105, L503.6150, L503.6550, L503.6075, L100.0100, L506.0400 #### [facility] [address] [place], [address] WBC (Bld) [#/Vol] 9.2 10*3/uL Normal 4.4-11.0 [facility] Comment on above: Performed By: #### L 501.9520, L506.0250, L502.0250, L501.5200, L3300.9910, L500.4050, L7400.3000, L503.0105, L503.6150, L503.6550, L503.6075, L100.0100, L506.0400 #### [facility] [address] [facility] [place], [place], [id number] Renal Profileon 08-06-2025 Albumin [Mass/Vol] 3.8 g/dL Normal 3.4-4.8 [facility] Comment on above: Performed By: #### L 501.9520, L506.0250, L502.0250, L501.5200, L3300.9910, L500.4050, L7400.3000, L503.0105, L503.6150, L503.6550, L503.6075, L100.0100, L506.0400 #### [facility] [address] [place], [address] BUN/CRE 12.9 RATIO Normal 10-20 [facility] Comment on above: Performed By: #### L 501.9520, L506.0250, L502.0250, L501.5200, L3300.9910, L500.4050, L7400.3000, L503.0105, L503.6150, L503.6550, L503.6075, L100.0100, L506.0400 #### [facility] [address] [place], [address] Calcium [Mass/Vol] 9.5 mg/dL Normal 7.6-11.0 [facility] Comment on above: Performed By: #### L 501.9520, L506.0250, L502.0250, L501.5200, L3300.9910, L500.4050, L7400.3000, L503.0105, L503.6150, L503.6550, L503.6075, L100.0100, L506.0400 #### [facility] [address] [place], [address] Chloride [Moles/Vol] 105 mmol/L Normal 98-108 [facility] Comment on above: Performed By: #### L 501.9520, L506.0250, L502.0250, L501.5200, L3300.9910, L500.4050, L7400.3000, L503.0105, L503.6150, L503.6550, L503.6075, L100.0100, L506.0400 #### [facility] [address] [place], [address] CO2 [Moles/Vol] 23.2 mmol/L Normal 21.0-32.0 [facility] Comment on above: Performed By: #### L 501.9520, L506.0250, L502.0250, L501.5200, L3300.9910, L500.4050, L7400.3000, L503.0105, L503.6150, L503.6550, L503.6075, L100.0100, L506.0400 #### [facility] [address] [facility] [place], [place], [id number] Creatinine [Mass/Vol] 1.84 mg/dL High 0.70-1.20 [facility] Comment on above: Performed By: #### L 501.9520, L506.0250, L502.0250, L501.5200, L3300.9910, L500.4050, L7400.3000, L503.0105, L503.6150, L503.6550, L503.6075, L100.0100, L506.0400 #### [facility] [address] [place], [place], [id number] GAP 11 Normal 5-15 [facility] Comment on above: Performed By: #### L 501.9520, L506.0250, L502.0250, L501.5200, L3300.9910, L500.4050, L7400.3000, L503.0105, L503.6150, L503.6550, L503.6075, L100.0100, L506.0400 #### [facility] [address] [facility] [place], [address] GFR/1.73 sq M.predicted among non-blacks MDRD (S/P/Bld) [Vol rate/Area] 38 mL/min/{1.73_m2} Low >60 [facility] Comment on above: Result Comment: mL/m in/1.73m2 CKD-EPI Creatinine Equation (2020) Performed By: #### L 501.9520, L506.0250, L502.0250, L501.5200, L3300.9910, L500.4050, L7400.3000, L503.0105, L503.6150, L503.6550, L503.6075, L100.0100, L506.0400 #### [facility] [address] [place], [address] Glucose [Mass/Vol] 146 mg/dL High 70-99 [facility] Comment on above: Performed By: #### L 501.9520, L506.0250, L502.0250, L501.5200, L3300.9910, L500.4050, L7400.3000, L503.0105, L503.6150, L503.6550, L503.6075, L100.0100, L506.0400 #### [facility] [address] [place], [address] Phosphate [Mass/Vol] 3.9 mg/dL Normal 2.7-4.5 [facility] Comment on above: Performed By: #### L 501.9520, L506.0250, L502.0250, L501.5200, L3300.9910, L500.4050, L7400.3000, L503.0105, L503.6150, L503.6550, L503.6075, L100.0100, L506.0400 #### [facility] [address] [place], [address] Potassium [Moles/Vol] 4.9 mmol/L Normal 3.3-5.1 [facility] Comment on above: Performed By: #### L 501.9520, L506.0250, L502.0250, L501.5200, L3300.9910, L500.4050, L7400.3000, L503.0105, L503.6150, L503.6550, L503.6075, L100.0100, L506.0400 #### [facility] [address] [place], [address] Sodium [Moles/Vol] 140 mmol/L Normal 133-145 [facility] Comment on above: Performed By: #### L 501.9520, L506.0250, L502.0250, L501.5200, L3300.9910, L500.4050, L7400.3000, L503.0105, L503.6150, L503.6550, L503.6075, L100.0100, L506.0400 #### [facility] [address] [place], [address] Urea nitrogen [Mass/Vol] 24 mg/dL High - [facility] Comment on above: Performed By: #### L 501.9520, L506.0250, L502.0250, L501.5200, L3300.9910, L500.4050, L7400.3000, L503.0105, L503.6150, L503.6550, L503.6075, L100.0100, L506.0400 #### [facility] [address] [place], [place], [id number] Anion gap in Serum or Plasma Ordered By: Manohar Pablo on 06-11-2025 Anion gap [Moles/Vol] 12 mmol/L 03-13 [facility] BUN/creatinine ratioOrdered By: Manohar Pablo on 06-11-2025 Urea nitrogen/Creatinine [Mass ratio] 15.0 mg/mg 08-18 [facility] CBC-Complete Blood Cnt No Di ffon 06-11-2025 Erythrocyte distribution width (RBC) [Ratio] 13.9 % Normal 11.6-14.6 [facility] Comment on above: Order Comment: 111 Performed By: #### L 501.9520, L506.0250, L502.0250, L501.5200, L3300.9910, L500.4050, L7400.3000, L503.0105, L503.6150, L503.6550, L503.6075, L100.0100, L506.0400 #### [facility] [address] [place], [address] Hematocrit (Bld) [Volume fraction] 31.3 % Low 40-54 [facility] Comment on above: Order Comment: 111 Performed By: #### L 501.9520, L506.0250, L502.0250, L501.5200, L3300.9910, L500.4050, L7400.3000, L503.0105, L503.6150, L503.6550, L503.6075, L100.0100, L506.0400 #### [facility] [address] [place], [address] Hemoglobin (Bld) [Mass/Vol] 10.5 g/dL Low 13.0-16.5 [facility] Comment on above: Order Comment: 111 Performed By: #### L 501.9520, L506.0250, L502.0250, L501.5200, L3300.9910, L500.4050, L7400.3000, L503.0105, L503.6150, L503.6550, L503.6075, L100.0100, L506.0400 #### [facility] [address] [place], [address] MCH (RBC) [Entitic mass] 32.0 pg Normal 27.0-32.0 [facility] Comment on above: Order Comment: 111 Performed By: #### L 501.9520, L506.0250, L502.0250, L501.5200, L3300.9910, L500.4050, L7400.3000, L503.0105, L503.6150, L503.6550, L503.6075, L100.0100, L506.0400 #### [facility] [address] [place], [address] MCHC (RBC) [Mass/Vol] 33.5 g/dL Normal 32-36 [facility] Comment on above: Order Comment: 111 Performed By: #### L 501.9520, L506.0250, L502.0250, L501.5200, L3300.9910, L500.4050, L7400.3000, L503.0105, L503.6150, L503.6550, L503.6075, L100.0100, L506.0400 #### [facility] [address] [place], [address] MCV (RBC) [Entitic vol] 95.4 fL High 80-94 [facility] Comment on above: Order Comment: 111 Performed By: #### L 501.9520, L506.0250, L502.0250, L501.5200, L3300.9910, L500.4050, L7400.3000, L503.0105, L503.6150, L503.6550, L503.6075, L100.0100, L506.0400 #### [facility] [address] [place], [address] Platelet mean volume (Bld) [Entitic vol] 11.2 fL Normal 6.2-12.0 [facility] Comment on above: Order Comment: 111 Performed By: #### L 501.9520, L506.0250, L502.0250, L501.5200, L3300.9910, L500.4050, L7400.3000, L503.0105, L503.6150, L503.6550, L503.6075, L100.0100, L506.0400 #### [facility] [address] [place], [address] Platelets (Bld) [#/Vol] 276 10*3/uL Normal 150-450 [facility] Comment on above: Order Comment: 111 Performed By: #### L 501.9520, L506.0250, L502.0250, L501.5200, L3300.9910, L500.4050, L7400.3000, L503.0105, L503.6150, L503.6550, L503.6075, L100.0100, L506.0400 #### [facility] [address] [place], [address] RBC (Bld) [#/Vol] 3.28 10*6/uL Low 4.6-6.2 [facility] Comment on above: Order Comment: 111 Performed By: #### L 501.9520, L506.0250, L502.0250, L501.5200, L3300.9910, L500.4050, L7400.3000, L503.0105, L503.6150, L503.6550, L503.6075, L100.0100, L506.0400 #### [facility] [address] [place], [address] RDW SD 48.7 fl High 35.1-43.9 [facility] Comment on above: Order Comment: 111 Performed By: #### L 501.9520, L506.0250, L502.0250, L501.5200, L3300.9910, L500.4050, L7400.3000, L503.0105, L503.6150, L503.6550, L503.6075, L100.0100, L506.0400 #### [facility] [address] [place], [address] WBC (Bld) [#/Vol] 7.6 10*3/uL Normal 4.4-11.0 [facility] Comment on above: Order Comment: 111 Performed By: #### L 501.9520, L506.0250, L502.0250, L501.5200, L3300.9910, L500.4050, L7400.3000, L503.0105, L503.6150, L503.6550, L503.6075, L100.0100, L506.0400 #### [facility] [address] [place], [address] Carbon dioxide, total [Moles /volume] in Central venous bloodOrdered By: Manohar Pablo on 06-11-2025 CO2 [Moles/Vol] 20.6 mmol/L Low 21.0-32.0 [facility] Chloride assayOrdered By: Liane Pablo on 06-11-2025 Chloride [Moles/Vol] 107 mmol/L 98-108 [facility] Erythrocyte distribution wid th ratioOrdered By: Manohar Pablo on 06-11-2025 Erythrocyte distribution width (RBC) [Ratio] 13.9 % 11.6-14.6 [facility] Erythrocyte distribution wid th standard deviationOrdered By: Manohar Pablo on 06-11-2025 Erythrocyte distribution width (RBC) [Ratio] 48.7 fl High 35.1-43.9 [facility] Glomerular filtration rate ( GFR) estimation/1.73 sq m using serum, plasma, or whole bOrdered By: Manohar Pablo on 06-11-2025 GFR/1.73 sq M.predicted among non-blacks MDRD (S/P/Bld) [Vol rate/Area] 38 mL/min/{1.73_m2} Low >60 [facility] Comment on above: mL/min/1.73m2 CKD-EP I Creatinine Equation (2020) Hematocrit Auto (Bld) [Volum e fraction]Ordered By: Manohar Palbo on 06-11-2025 Hematocrit (Bld) [Volume fraction] 31.3 % Low 40-54 [facility] Hemoglobin measurementOrdere d By: Manohar Pablo on 06-11-2025 Hemoglobin (Bld) [Mass/Vol] 10.5 g/dL Low 13.0-16.5 [facility] MCV (mean corpuscular volume ) determinationOrdered By: Manohar Pablo 06-11-2025 MCV (RBC) [Entitic vol] 95.4 fL High 80-94 [facility] Mean corpuscular hemoglobin (MCH) determinationOrdered By: Manohar Pablo 06-11-2025 MCH (RBC) [Entitic mass] 32.0 pg 27.0-32.0 [facility] Mean corpuscular hemoglobin concentration (MCHC) determinationOrdered By: Manohar Pablo 06-11-2025 MCHC (RBC) [Mass/Vol] 33.5 g/dL 32-36 [facility] Mean platelet volume determi nationOrdered By: Manohar Pablo 06-11-2025 Platelet mean volume (Bld) [Entitic vol] 11.2 fL 6.2-12.0 [facility] Platelet countOrdered By: Liane conchishan Pablo on 06-11-2025 Platelets (Bld) [#/Vol] 276 10*3/uL 150-450 [facility] Potassium measurement (mass/ volume)Ordered By: Manohar Pablo on 06-11-2025 Potassium (Unsp spec) [Mass/Vol] 4.3 mmol/L 3.3-5.1 [facility] RBC Auto (Bld) [#/Vol]Ordere d By: Manohar Pablo on 06-11-2025 RBC (Bld) [#/Vol] 3.28 10*6/uL Low 4.6-6.2 [facility] Renal Profileon 06-11-2025 Albumin [Mass/Vol] 3.5 g/dL Normal 3.4-4.8 [facility] Comment on above: Order Comment: 111 Performed By: #### L 501.9520, L506.0250, L502.0250, L501.5200, L3300.9910, L500.4050, L7400.3000, L503.0105, L503.6150, L503.6550, L503.6075, L100.0100, L506.0400 #### [facility] [address] [place], [address] BUN/CRE 15.0 RATIO Normal 10-20 [facility] Comment on above: Order Comment: 111 Performed By: #### L 501.9520, L506.0250, L502.0250, L501.5200, L3300.9910, L500.4050, L7400.3000, L503.0105, L503.6150, L503.6550, L503.6075, L100.0100, L506.0400 #### [facility] [address] [place], [address] Calcium [Mass/Vol] 9.3 mg/dL Normal 7.6-11.0 [facility] Comment on above: Order Comment: 111 Performed By: #### L 501.9520, L506.0250, L502.0250, L501.5200, L3300.9910, L500.4050, L7400.3000, L503.0105, L503.6150, L503.6550, L503.6075, L100.0100, L506.0400 #### [facility] [address] [place], [place], [id number] (350) Chloride [Moles/Vol] 107 mmol/L Normal 98-108 [facility] Comment on above: Order Comment: 111 Performed By: #### L 501.9520, L506.0250, L502.0250, L501.5200, L3300.9910, L500.4050, L7400.3000, L503.0105, L503.6150, L503.6550, L503.6075, L100.0100, L506.0400 #### [facility] [address] [place], [place], [phone] (155) CO2 [Moles/Vol] 20.6 mmol/L Low 21.0-32.0 [facility] Comment on above: Order Comment: 111 Performed By: #### L 501.9520, L506.0250, L502.0250, L501.5200, L3300.9910, L500.4050, L7400.3000, L503.0105, L503.6150, L503.6550, L503.6075, L100.0100, L506.0400 #### [facility] [address] [place], [place], [id number] Creatinine [Mass/Vol] 1.81 mg/dL High 0.70-1.20 [facility] Comment on above: Order Comment: 111 Performed By: #### L 501.9520, L506.0250, L502.0250, L501.5200, L3300.9910, L500.4050, L7400.3000, L503.0105, L503.6150, L503.6550, L503.6075, L100.0100, L506.0400 #### [facility] [address] [place], [place], [id number] GAP 12 Normal 5-15 [facility] Comment on above: Order Comment: 111 Performed By: #### L 501.9520, L506.0250, L502.0250, L501.5200, L3300.9910, L500.4050, L7400.3000, L503.0105, L503.6150, L503.6550, L503.6075, L100.0100, L506.0400 #### [facility] [address] [place], [place], [id number] GFR/1.73 sq M.predicted among non-blacks MDRD (S/P/Bld) [Vol rate/Area] 38 mL/min/{1.73_m2} Low >60 [facility] Comment on above: Order Comment: 111 Result Comment: mL/m in/1.73m2 CKD-EPI Creatinine Equation (2020) Performed By: #### L 501.9520, L506.0250, L502.0250, L501.5200, L3300.9910, L500.4050, L7400.3000, L503.0105, L503.6150, L503.6550, L503.6075, L100.0100, L506.0400 #### [facility] [address] [place], [place], [id number] Glucose [Mass/Vol] 143 mg/dL High 70-99 [facility] Comment on above: Order Comment: 111 Performed By: #### L 501.9520, L506.0250, L502.0250, L501.5200, L3300.9910, L500.4050, L7400.3000, L503.0105, L503.6150, L503.6550, L503.6075, L100.0100, L506.0400 #### [facility] [address] [place], [address] Phosphate [Mass/Vol] 3.4 mg/dL Normal 2.7-4.5 [facility] Comment on above: Order Comment: 111 Performed By: #### L 501.9520, L506.0250, L502.0250, L501.5200, L3300.9910, L500.4050, L7400.3000, L503.0105, L503.6150, L503.6550, L503.6075, L100.0100, L506.0400 #### [facility] [address] [place], [address] Potassium [Moles/Vol] 4.3 mmol/L Normal 3.3-5.1 [facility] Comment on above: Order Comment: 111 Performed By: #### L 501.9520, L506.0250, L502.0250, L501.5200, L3300.9910, L500.4050, L7400.3000, L503.0105, L503.6150, L503.6550, L503.6075, L100.0100, L506.0400 #### [facility] [address] [place], [address] Sodium [Moles/Vol] 140 mmol/L Normal 133-145 [facility] Comment on above: Order Comment: 111 Performed By: #### L 501.9520, L506.0250, L502.0250, L501.5200, L3300.9910, L500.4050, L7400.3000, L503.0105, L503.6150, L503.6550, L503.6075, L100.0100, L506.0400 #### [facility] [address] [place], [address] Urea nitrogen [Mass/Vol] 27 mg/dL High 4-19 [facility] Comment on above: Order Comment: 111 Performed By: #### L 501.9520, L506.0250, L502.0250, L501.5200, L3300.9910, L500.4050, L7400.3000, L503.0105, L503.6150, L503.6550, L503.6075, L100.0100, L506.0400 #### [facility] [address] [place], [address] Serum creatinine measurement (mass/volume)Ordered By: Manohar Pablo on 06-11-2025 Creatinine [Mass/Vol] 1.81 mg/dL High 0.70-1.20 [facility] Serum glucose measurement (m ass/volume)Ordered By: Manohar Pablo on 06-11-2025 Glucose [Mass/Vol] 143 mg/dL High 70-99 [facility] Serum or plasma albumin quynh urement (mass/volume)Ordered By: Manohar Pablo on 06-11-2025 Albumin [Mass/Vol] 3.5 g/dL 3.4-4.8 [facility] Serum or plasma calcium quynh urement (mass/volume)Ordered By: Manohar Pablo on 06-11-2025 Calcium [Mass/Vol] 9.3 mg/dL 7.6-11.0 [facility] Serum or plasma urea nitroge n measurement (mass/volume)Ordered By: Manohar Pablo on 06-11-2025 Urea nitrogen [Mass/Vol] 27 mg/dL High 4-19 [facility] Sodium levelOrdered By: Caity Pablo on 06-11-2025 Sodium [Moles/Vol] 140 mmol/L 133-145 [facility] White blood cell (WBC) count Ordered By: Manohar Pablo on 06-11-2025 WBC (Bld) [#/Vol] 7.6 10*3/uL 4.4-11.0 [facility] Urine Cultureon 06-01-2025 URC 111 #1, 2, 3 Below infection level. Urine Culture GNR lactose broach trouble shooter [place] Count 1000-10,000 Mixed Gram Positive Organisms Mixed Gram Positive Organisms MIXC Mixed contaminants. Submit a new specimen if indicated. GNR lactose broach trouble shooter [place] Count <1000 Normal [facility] Comment on above: Performed By: #### L 501.9520, L506.0250, L502.0250, L501.5200, L3300.9910, L500.4050, L7400.3000, L503.0105, L503.6150, L503.6550, L503.6075, L100.0100, L506.0400 #### [facility] [place], [address] Bilirubin Test strip Ql (U)O rdered By: Sharmila Arteaga on 05-30-2025 Bilirubin Ql (U) Negative Negative [facility] Ketones Test strip Ql (U)Ord ered By: Sharmila Arteaga on 05-30-2025 Ketones Ql (U) Negative Negative [facility] Microscopic analysis of urin e for red blood cells (RBC)Ordered By: Sharmila Arteaga on 05-30-2025 Microscopic analysis of urine for red blood cells (RBC) 0 SEEN /hpf 0-5 [facility] Mucus LM Ql (Urine sed)Order ed By: Sharmila Arteaga on 05-30-2025 Mucus Ql (Urine sed) 0 SEEN /hpf [facility] Nitrite Test strip Ql (U)Ord ered By: Sharmila Arteaga on 05-30-2025 Nitrite Ql (U) Negative Negative [facility] Protein Test strip Ql (U)Ord ered By: Sharmila Artegaa on 05-30-2025 Protein Ql (U) 100 mg/dl High Negative [facility] Squamous epithelial cells de tection in urine sediment by light microscopyOrdered By: Sharmila Arteaga on 05-30-2025 Epithelial cells.squamous LM Ql (Urine sed) 0-5 SEEN /hpf 0-5 [facility] Urinalysis, Completeon 05-30 EPI,SQUAMOUS 0-5 SEEN Normal 0-5 [facility] Comment on above: Order Comment: 111CL JAMA CATCH Performed By: #### L 501.9520, L506.0250, L502.0250, L501.5200, L3300.9910, L500.4050, L7400.3000, L503.0105, L503.6150, L503.6550, L503.6075, L100.0100, L506.0400 #### [facility] [address] [place], [address] BACTERIA 0 SEEN Normal None Seen [facility] Comment on above: Order Comment: 111CL JAMA CATCH Performed By: #### L 501.9520, L506.0250, L502.0250, L501.5200, L3300.9910, L500.4050, L7400.3000, L503.0105, L503.6150, L503.6550, L503.6075, L100.0100, L506.0400 #### [facility] [address] [place], [address] Mucus Ql (Urine sed) 0 SEEN Normal [facility] Comment on above: Order Comment: 111CL JAMA CATCH Performed By: #### L 501.9520, L506.0250, L502.0250, L501.5200, L3300.9910, L500.4050, L7400.3000, L503.0105, L503.6150, L503.6550, L503.6075, L100.0100, L506.0400 #### [facility] [address] [place], [address] RBC 0 SEEN Normal 0-5 [facility] Comment on above: Order Comment: 111CL JAMA CATCH Performed By: #### L 501.9520, L506.0250, L502.0250, L501.5200, L3300.9910, L500.4050, L7400.3000, L503.0105, L503.6150, L503.6550, L503.6075, L100.0100, L506.0400 #### [facility] [address] [place], [address] WBC 0 SEEN Normal 0-5 [facility] Comment on above: Order Comment: 111CL JAMA CATCH Performed By: #### L 501.9520, L506.0250, L502.0250, L501.5200, L3300.9910, L500.4050, L7400.3000, L503.0105, L503.6150, L503.6550, L503.6075, L100.0100, L506.0400 #### [facility] [place], [address] Urine clarityOrdered By: James Arteaga on 05-30-2025 Clarity (U) Sl. Cloudy Clear [facility] Urine color determinationOrd ered By: Sharmila Arteaga on 05-30-2025 Color (U) Yellow Yellow [facility] Urine cultureOrdered By: James Arteaga on 05-30-2025 Bacteria identified Cx Nom (U) GNR lactose broach trouble shooter Abnormal [facility] Bacteria identified Cx Nom (U) Positive Abnormal [facility] Bacteria identified Cx Nom (U) GNR lactose broach trouble shooter#2 Abnormal [facility] Urine glucose detectionOrder ed By: Sharmila Arteaga on 05-30-2025 Glucose Ql (U) 250 mg/dl High Normal [facility] Urine leukocyte esterase det ection by dipstickOrdered By: Sharmila Arteaga on 05-30-2025 Leukocyte esterase Test strip Ql (U) Negative Negative [facility] Urine pHOrdered By: Sharmila Morgan udla on 05-30-2025 pH (U) 7.0 [pH] 5.0 - 8.0 [facility] Urine sediment bacteria coun t by microscopy (number/high power field)Ordered By: Sharmila Arteaga on 05-30-2025 Bacteria LM.HPF (Urine sed) [#/Area] 0 /[HPF] None Seen [facility] Urine specific gravity measu rementOrdered By: Sharmila Arteaga on 05-30-2025 Specific gravity (U) [Rel density] 1.010 1.002-1.030 [facility] Urine urobilinogen measureme ntOrdered By: Sharmila Arteaga on 05-30-2025 Urobilinogen Ql (U) Normal mg/dl Normal [facility] White blood cell countOrdere d By: Sharmila Arteaga on 05-30-2025 White blood cell count 0 SEEN /hpf 0-5 [facility] Anion gap in Serum or Plasma Ordered By: Sharmila Arteaga on 05-28-2025 Anion gap [Moles/Vol] 11 mmol/L 03-13 [facility] BUN/creatinine ratioOrdered By: Sharmila Arteaga on 05-28-2025 Urea nitrogen/Creatinine [Mass ratio] 17.2 mg/mg 08-18 [facility] Basic Metabolic Profile (BMP )on 05-28-2025 GAP 11 Normal 03-13 [facility] Comment on above: Order Comment: 111 Performed By: #### L 501.9520, L506.0250, L502.0250, L501.5200, L3300.9910, L500.4050, L7400.3000, L503.0105, L503.6150, L503.6550, L503.6075, L100.0100, L506.0400 #### [facility] [address] [place], [place], [id number] BUN/CRE 17.2 RATIO Normal 08-18 [facility] Comment on above: Order Comment: 111 Performed By: #### L 501.9520, L506.0250, L502.0250, L501.5200, L3300.9910, L500.4050, L7400.3000, L503.0105, L503.6150, L503.6550, L503.6075, L100.0100, L506.0400 #### [facility] [address] [place], [place], [id number] Calcium [Mass/Vol] 9.1 mg/dL Normal 7.6-11.0 [facility] Comment on above: Order Comment: 111 Performed By: #### L 501.9520, L506.0250, L502.0250, L501.5200, L3300.9910, L500.4050, L7400.3000, L503.0105, L503.6150, L503.6550, L503.6075, L100.0100, L506.0400 #### [facility] [address] [place], [place], [phone] (641) Chloride [Moles/Vol] 100 mmol/L Normal 98-108 [facility] Comment on above: Order Comment: 111 Performed By: #### L 501.9520, L506.0250, L502.0250, L501.5200, L3300.9910, L500.4050, L7400.3000, L503.0105, L503.6150, L503.6550, L503.6075, L100.0100, L506.0400 #### [facility] [address] [place], [address] ([address] CO2 [Moles/Vol] 21.4 mmol/L Normal 21.0-32.0 [facility] Comment on above: Order Comment: 111 Performed By: #### L 501.9520, L506.0250, L502.0250, L501.5200, L3300.9910, L500.4050, L7400.3000, L503.0105, L503.6150, L503.6550, L503.6075, L100.0100, L506.0400 #### [facility] [address] [place], [address] (787) Creatinine [Mass/Vol] 1.86 mg/dL High 0.70-1.20 [facility] Comment on above: Order Comment: 111 Performed By: #### L 501.9520, L506.0250, L502.0250, L501.5200, L3300.9910, L500.4050, L7400.3000, L503.0105, L503.6150, L503.6550, L503.6075, L100.0100, L506.0400 #### [facility] [address] [place], [place], [phone] (587) GFR/1.73 sq M.predicted among non-blacks MDRD (S/P/Bld) [Vol rate/Area] 37 mL/min/{1.73_m2} Low >60 [facility] Comment on above: Order Comment: 111 Result Comment: mL/m in/1.73m2 CKD-EPI Creatinine Equation (2020) Performed By: #### L 501.9520, L506.0250, L502.0250, L501.5200, L3300.9910, L500.4050, L7400.3000, L503.0105, L503.6150, L503.6550, L503.6075, L100.0100, L506.0400 #### [facility] [address] [place], [address] Glucose [Mass/Vol] 407 mg/dL High 70-99 [facility] Comment on above: Order Comment: 111 Performed By: #### L 501.9520, L506.0250, L502.0250, L501.5200, L3300.9910, L500.4050, L7400.3000, L503.0105, L503.6150, L503.6550, L503.6075, L100.0100, L506.0400 #### [facility] [address] [place], [address] Potassium [Moles/Vol] 4.9 mmol/L Normal 3.3-5.1 [facility] Comment on above: Order Comment: 111 Performed By: #### L 501.9520, L506.0250, L502.0250, L501.5200, L3300.9910, L500.4050, L7400.3000, L503.0105, L503.6150, L503.6550, L503.6075, L100.0100, L506.0400 #### [facility] [address] [place], [address] Sodium [Moles/Vol] 133 mmol/L Normal 133-145 [facility] Comment on above: Order Comment: 111 Performed By: #### L 501.9520, L506.0250, L502.0250, L501.5200, L3300.9910, L500.4050, L7400.3000, L503.0105, L503.6150, L503.6550, L503.6075, L100.0100, L506.0400 #### [facility] [address] [place], [place], [id number] Urea nitrogen [Mass/Vol] 32 mg/dL High 4-19 [facility] Comment on above: Order Comment: 111 Performed By: #### L 501.9520, L506.0250, L502.0250, L501.5200, L3300.9910, L500.4050, L7400.3000, L503.0105, L503.6150, L503.6550, L503.6075, L100.0100, L506.0400 #### [facility] [address] [facility] [place], [place], [id number] CBC-Complete Blood Cnt No Di ffon 05-28-2025 Erythrocyte distribution width (RBC) [Ratio] 13.6 % Normal 11.6-14.6 [facility] Comment on above: Order Comment: 111 Performed By: #### L 501.9520, L506.0250, L502.0250, L501.5200, L3300.9910, L500.4050, L7400.3000, L503.0105, L503.6150, L503.6550, L503.6075, L100.0100, L506.0400 #### [facility] [address] [place], [place], [id number] Hematocrit (Bld) [Volume fraction] 30.7 % Low 40-54 [facility] Comment on above: Order Comment: 111 Performed By: #### L 501.9520, L506.0250, L502.0250, L501.5200, L3300.9910, L500.4050, L7400.3000, L503.0105, L503.6150, L503.6550, L503.6075, L100.0100, L506.0400 #### [facility] [address] [place], [address] Hemoglobin (Bld) [Mass/Vol] 10.2 g/dL Low 13.0-16.5 [facility] Comment on above: Order Comment: 111 Performed By: #### L 501.9520, L506.0250, L502.0250, L501.5200, L3300.9910, L500.4050, L7400.3000, L503.0105, L503.6150, L503.6550, L503.6075, L100.0100, L506.0400 #### [facility] [address] [place], [address] MCH (RBC) [Entitic mass] 32.0 pg Normal 27.0-32.0 [facility] Comment on above: Order Comment: 111 Performed By: #### L 501.9520, L506.0250, L502.0250, L501.5200, L3300.9910, L500.4050, L7400.3000, L503.0105, L503.6150, L503.6550, L503.6075, L100.0100, L506.0400 #### [facility] [address] [place], [address] ([address] MCHC (RBC) [Mass/Vol] 33.2 g/dL Normal 32-36 [facility] Comment on above: Order Comment: 111 Performed By: #### L 501.9520, L506.0250, L502.0250, L501.5200, L3300.9910, L500.4050, L7400.3000, L503.0105, L503.6150, L503.6550, L503.6075, L100.0100, L506.0400 #### [facility] [address] [place], [address] MCV (RBC) [Entitic vol] 96.2 fL High 80-94 [facility] Comment on above: Order Comment: 111 Performed By: #### L 501.9520, L506.0250, L502.0250, L501.5200, L3300.9910, L500.4050, L7400.3000, L503.0105, L503.6150, L503.6550, L503.6075, L100.0100, L506.0400 #### [facility] [address] [place], [address] Platelet mean volume (Bld) [Entitic vol] 11.3 fL Normal 6.2-12.0 [facility] Comment on above: Order Comment: 111 Performed By: #### L 501.9520, L506.0250, L502.0250, L501.5200, L3300.9910, L500.4050, L7400.3000, L503.0105, L503.6150, L503.6550, L503.6075, L100.0100, L506.0400 #### [facility] [address] [place], [address] Platelets (Bld) [#/Vol] 279 10*3/uL Normal 150-450 [facility] [facility] Comment on above: Order Comment: 111 Performed By: #### L 501.9520, L506.0250, L502.0250, L501.5200, L3300.9910, L500.4050, L7400.3000, L503.0105, L503.6150, L503.6550, L503.6075, L100.0100, L506.0400 #### [facility] [address] [place], [address] RBC (Bld) [#/Vol] 3.19 10*6/uL Low 4.6-6.2 [facility] Comment on above: Order Comment: 111 Performed By: #### L 501.9520, L506.0250, L502.0250, L501.5200, L3300.9910, L500.4050, L7400.3000, L503.0105, L503.6150, L503.6550, L503.6075, L100.0100, L506.0400 #### [facility] [address] [place], [place], [id number] (592) RDW SD 47.9 fl High 35.1-43.9 [facility] Comment on above: Order Comment: 111 Performed By: #### L 501.9520, L506.0250, L502.0250, L501.5200, L3300.9910, L500.4050, L7400.3000, L503.0105, L503.6150, L503.6550, L503.6075, L100.0100, L506.0400 #### [facility] [address] [place], [address] WBC (Bld) [#/Vol] 8.3 10*3/uL Normal 4.4-11.0 [facility] Comment on above: Order Comment: 111 Performed By: #### L 501.9520, L506.0250, L502.0250, L501.5200, L3300.9910, L500.4050, L7400.3000, L503.0105, L503.6150, L503.6550, L503.6075, L100.0100, L506.0400 #### [facility] [address] [place], [place], [id number] Carbon dioxide, total [Moles /volume] in Central venous bloodOrdered By: Sharmila Arteaga on 05-28-2025 CO2 [Moles/Vol] 21.4 mmol/L 21.0-32.0 [facility] Chloride assayOrdered By: Boom Arteaga on 05-28-2025 Chloride [Moles/Vol] 100 mmol/L 98-108 [facility] Erythrocyte distribution wid th ratioOrdered By: Sharmila Arteaga on 05-28-2025 Erythrocyte distribution width (RBC) [Ratio] 13.6 % 11.6-14.6 [facility] Erythrocyte distribution wid th standard deviationOrdered By: Sharmila Arteaga on 05-28-2025 Erythrocyte distribution width (RBC) [Ratio] 47.9 fl High 35.1-43.9 [facility] Glomerular filtration rate ( GFR) estimation/1.73 sq m using serum, plasma, or whole bOrdered By: Sharmila Arteaga on 05-28-2025 GFR/1.73 sq M.predicted among non-blacks MDRD (S/P/Bld) [Vol rate/Area] 37 mL/min/{1.73_m2} Low >60 [facility] Comment on above: mL/min/1.73m2 CKD-EP I Creatinine Equation (2020) Hematocrit Auto (Bld) [Volum e fraction]Ordered By: Sharmila Arteaga on 05-28-2025 Hematocrit (Bld) [Volume fraction] 30.7 % Low 40-54 [facility] Hemoglobin A1con 05-28-2025 HbA1c (Bld) [Mass fraction] 10.8 % High <=5.6 [facility] Comment on above: Order Comment: 111 Result Comment: Norm al < 5.7 % Prediabetic 5.7 - 6.4 % Diabetic >or= 6.5 % Please note range changes. Performed By: #### L 501.9520, L506.0250, L502.0250, L501.5200, L3300.9910, L500.4050, L7400.3000, L503.0105, L503.6150, L503.6550, L503.6075, L100.0100, L506.0400 #### [facility] [address] [place], [place], [id number] Hemoglobin A1c percentageOrd ered By: Sharmila Arteaga on 05-28-2025 HbA1c (Bld) [Mass fraction] 10.8 % High <5.7 [facility] Comment on above: Normal < 5.7 % Predi abetic 5.7 - 6.4 % Diabetic >or= 6.5 % Please note range changes. Hemoglobin measurementOrdere d By: Sharmila Arteaga on 05-28-2025 Hemoglobin (Bld) [Mass/Vol] 10.2 g/dL Low 13.0-16.5 [facility] MCV (mean corpuscular volume ) determinationOrdered By: Sharmila Arteaga on 05-28-2025 MCV (RBC) [Entitic vol] 96.2 fL High 80-94 [facility] Mean corpuscular hemoglobin (MCH) determinationOrdered By: Sharmila Arteaga on 05-28-2025 MCH (RBC) [Entitic mass] 32.0 pg 27.0-32.0 [facility] Mean corpuscular hemoglobin concentration (MCHC) determinationOrdered By: Sharmila Arteaga on 05-28-2025 MCHC (RBC) [Mass/Vol] 33.2 g/dL 32-36 [facility] Mean platelet volume determi nationOrdered By: Sharmila Arteaga on 05-28-2025 Platelet mean volume (Bld) [Entitic vol] 11.3 fL 6.2-12.0 [facility] Platelet countOrdered By: Boom Arteaga on 05-28-2025 Platelets (Bld) [#/Vol] 279 10*3/uL 150-450 [facility] Potassium measurement (mass/ volume)Ordered By: Sharmila Arteaga on 05-28-2025 Potassium (Unsp spec) [Mass/Vol] 4.9 mmol/L 3.3-5.1 [facility] RBC Auto (Bld) [#/Vol]Ordere d By: Sharmila Arteaga on 05-28-2025 RBC (Bld) [#/Vol] 3.19 10*6/uL Low 4.6-6.2 [facility] Serum creatinine measurement (mass/volume)Ordered By: Sharmila Arteaga on 05-28-2025 Creatinine [Mass/Vol] 1.86 mg/dL High 0.70-1.20 [facility] Serum glucose measurement (m ass/volume)Ordered By: Sharmila Arteaga on 05-28-2025 Glucose [Mass/Vol] 407 mg/dL High 70-99 [facility] Serum or plasma calcium quynh urement (mass/volume)Ordered By: Sharmila Arteaga on 05-28-2025 Calcium [Mass/Vol] 9.1 mg/dL 7.6-11.0 [facility] Serum or plasma urea nitroge n measurement (mass/volume)Ordered By: Sharmila Arteaga on 05-28-2025 Urea nitrogen [Mass/Vol] 32 mg/dL High 4-19 [facility] Sodium levelOrdered By: Angel Arteaga on 05-28-2025 Sodium [Moles/Vol] 133 mmol/L 133-145 [facility] White blood cell (WBC) count Ordered By: Sharmila Arteaga on 05-28-2025 WBC (Bld) [#/Vol] 8.3 10*3/uL 4.4-11.0 [facility] Anion gap in Serum or Plasma Ordered By: Manohar Pablo on 04-22-2025 Anion gap [Moles/Vol] 11 mmol/L 5-15 [facility] BUN/creatinine ratioOrdered By: Manohar Pablo on 04-22-2025 Urea nitrogen/Creatinine [Mass ratio] 15.6 mg/mg 10-20 [facility] Carbon dioxide, total [Moles /volume] in Central venous bloodOrdered By: Manohar Pablo on 04-22-2025 CO2 [Moles/Vol] 22.2 mmol/L 21.0-32.0 [facility] Chloride assayOrdered By: Liane Pablo on 04-22-2025 Chloride [Moles/Vol] 105 mmol/L 98-108 [facility] Ferritinon 04-22-2025 Ferritin [Mass/Vol] 578 ng/mL High 37-417 [facility] Comment on above: Order Comment: 111 Performed By: #### L 501.9520, L506.0250, L502.0250, L501.5200, L3300.9910, L500.4050, L7400.3000, L503.0105, L503.6150, L503.6550, L503.6075, L100.0100, L506.0400 #### [facility] [address] [place], [address] Glomerular filtration rate ( GFR) estimation/1.73 sq m using serum, plasma, or whole bOrdered By: Manohar Pablo on 04-22-2025 GFR/1.73 sq M.predicted among non-blacks MDRD (S/P/Bld) [Vol rate/Area] 36 mL/min/{1.73_m2} Low >60 [facility] Comment on above: mL/min/1.73m2 CKD-EP I Creatinine Equation (2020) Iron measurement (mass/mass) Ordered By: Manohar Pablo on 04-22-2025 Iron (Unsp spec) [Mass/Mass] 67 ug/dL 65-175 [facility] Iron+Iron Binding Capacityon 04-22-2025 Iron [Mass/Vol] 67 ug/dL Normal 65-175 [facility] Comment on above: Order Comment: 111 Performed By: #### L 501.9520, L506.0250, L502.0250, L501.5200, L3300.9910, L500.4050, L7400.3000, L503.0105, L503.6150, L503.6550, L503.6075, L100.0100, L506.0400 #### [facility] [address] [place], [address] IRON SATURATION 20.0 Normal 9-55 [facility] Comment on above: Order Comment: 111 Performed By: #### L 501.9520, L506.0250, L502.0250, L501.5200, L3300.9910, L500.4050, L7400.3000, L503.0105, L503.6150, L503.6550, L503.6075, L100.0100, L506.0400 #### [facility] [address] [place], [address] TIBC 340 ug/dL Normal 250-450 [facility] Comment on above: Order Comment: 111 Performed By: #### L 501.9520, L506.0250, L502.0250, L501.5200, L3300.9910, L500.4050, L7400.3000, L503.0105, L503.6150, L503.6550, L503.6075, L100.0100, L506.0400 #### [facility] [address] [place], [address] UIBC 273 ug/dL Normal 228-428 [facility] Comment on above: Order Comment: 111 Performed By: #### L 501.9520, L506.0250, L502.0250, L501.5200, L3300.9910, L500.4050, L7400.3000, L503.0105, L503.6150, L503.6550, L503.6075, L100.0100, L506.0400 #### [facility] [address] [place], [address] No Panel InformationOrdered By: Manohar Pablo on 04-22-2025 Unsaturated Iron Binding Capacity 273 ug/dL 228-428 [facility] PTHINon 04-22-2025 PTH 21 pg/mL Normal 11-61 [facility] Comment on above: Order Comment: 111 Performed By: #### L 501.9520, L506.0250, L502.0250, L501.5200, L3300.9910, L500.4050, L7400.3000, L503.0105, L503.6150, L503.6550, L503.6075, L100.0100, L506.0400 #### [facility] [address] [place], [address] Potassium measurement (mass/ volume)Ordered By: Manohar Pablo on 04-22-2025 Potassium (Unsp spec) [Mass/Vol] 4.6 mmol/L 3.3-5.1 [facility] Renal Profileon 04-22-2025 Albumin [Mass/Vol] 3.6 g/dL Normal 3.4-4.8 [facility] Comment on above: Order Comment: 111 Performed By: #### L 501.9520, L506.0250, L502.0250, L501.5200, L3300.9910, L500.4050, L7400.3000, L503.0105, L503.6150, L503.6550, L503.6075, L100.0100, L506.0400 #### [facility] [address] [place], [address] BUN/CRE 15.6 RATIO Normal 10-20 [facility] Comment on above: Order Comment: 111 Performed By: #### L 501.9520, L506.0250, L502.0250, L501.5200, L3300.9910, L500.4050, L7400.3000, L503.0105, L503.6150, L503.6550, L503.6075, L100.0100, L506.0400 #### [facility] [address] [place], [place], [phone] (995) Calcium [Mass/Vol] 9.3 mg/dL Normal 7.6-11.0 [facility] Comment on above: Order Comment: 111 Performed By: #### L 501.9520, L506.0250, L502.0250, L501.5200, L3300.9910, L500.4050, L7400.3000, L503.0105, L503.6150, L503.6550, L503.6075, L100.0100, L506.0400 #### [facility] [address] [place], [address] Chloride [Moles/Vol] 105 mmol/L Normal 98-108 [facility] Comment on above: Order Comment: 111 Performed By: #### L 501.9520, L506.0250, L502.0250, L501.5200, L3300.9910, L500.4050, L7400.3000, L503.0105, L503.6150, L503.6550, L503.6075, L100.0100, L506.0400 #### [facility] [address] [place], [place], [phone] (202) CO2 [Moles/Vol] 22.2 mmol/L Normal 21.0-32.0 [facility] Comment on above: Order Comment: 111 Performed By: #### L 501.9520, L506.0250, L502.0250, L501.5200, L3300.9910, L500.4050, L7400.3000, L503.0105, L503.6150, L503.6550, L503.6075, L100.0100, L506.0400 #### [facility] [address] [place], [address] (930) Creatinine [Mass/Vol] 1.91 mg/dL High 0.70-1.20 [facility] Comment on above: Order Comment: 111 Performed By: #### L 501.9520, L506.0250, L502.0250, L501.5200, L3300.9910, L500.4050, L7400.3000, L503.0105, L503.6150, L503.6550, L503.6075, L100.0100, L506.0400 #### [facility] [address] [place], [place], [phone] GAP 11 Normal 5-15 [facility] Comment on above: Order Comment: 111 Performed By: #### L 501.9520, L506.0250, L502.0250, L501.5200, L3300.9910, L500.4050, L7400.3000, L503.0105, L503.6150, L503.6550, L503.6075, L100.0100, L506.0400 #### [facility] [address] [place], [place], [phone] (949) GFR/1.73 sq M.predicted among non-blacks MDRD (S/P/Bld) [Vol rate/Area] 36 mL/min/{1.73_m2} Low >60 [facility] Comment on above: Order Comment: 111 Result Comment: mL/m in/1.73m2 CKD-EPI Creatinine Equation (2020) Performed By: #### L 501.9520, L506.0250, L502.0250, L501.5200, L3300.9910, L500.4050, L7400.3000, L503.0105, L503.6150, L503.6550, L503.6075, L100.0100, L506.0400 #### [facility] [address] [place], [address] Glucose [Mass/Vol] 173 mg/dL High 70-99 [facility] Comment on above: Order Comment: 111 Performed By: #### L 501.9520, L506.0250, L502.0250, L501.5200, L3300.9910, L500.4050, L7400.3000, L503.0105, L503.6150, L503.6550, L503.6075, L100.0100, L506.0400 #### [facility] [address] [place], [address] Phosphate [Mass/Vol] 3.1 mg/dL Normal 2.7-4.5 [facility] Comment on above: Order Comment: 111 Performed By: #### L 501.9520, L506.0250, L502.0250, L501.5200, L3300.9910, L500.4050, L7400.3000, L503.0105, L503.6150, L503.6550, L503.6075, L100.0100, L506.0400 #### [facility] [address] [place], [address] Potassium [Moles/Vol] 4.6 mmol/L Normal 3.3-5.1 [facility] Comment on above: Order Comment: 111 Performed By: #### L 501.9520, L506.0250, L502.0250, L501.5200, L3300.9910, L500.4050, L7400.3000, L503.0105, L503.6150, L503.6550, L503.6075, L100.0100, L506.0400 #### [facility] [address] [place], [place], [id number] Sodium [Moles/Vol] 139 mmol/L Normal 133-145 [facility] Comment on above: Order Comment: 111 Performed By: #### L 501.9520, L506.0250, L502.0250, L501.5200, L3300.9910, L500.4050, L7400.3000, L503.0105, L503.6150, L503.6550, L503.6075, L100.0100, L506.0400 #### [facility] [address] [place], [place], [id number] Urea nitrogen [Mass/Vol] 30 mg/dL High 4-19 [facility] Comment on above: Order Comment: 111 Performed By: #### L 501.9520, L506.0250, L502.0250, L501.5200, L3300.9910, L500.4050, L7400.3000, L503.0105, L503.6150, L503.6550, L503.6075, L100.0100, L506.0400 #### [facility] [address] [place], [place], [id number] Serum creatinine measurement (mass/volume)Ordered By: Manohar Pablo on 04-22-2025 Creatinine [Mass/Vol] 1.91 mg/dL High 0.70-1.20 [facility] Serum glucose measurement (m ass/volume)Ordered By: Manohar Pablo on 04-22-2025 Glucose [Mass/Vol] 173 mg/dL High 70-99 [facility] Serum or plasma albumin quynh urement (mass/volume)Ordered By: Manohar Pablo on 04-22-2025 Albumin [Mass/Vol] 3.6 g/dL 3.4-4.8 [facility] Serum or plasma calcium quynh urement (mass/volume)Ordered By: Manohar Pablo on 04-22-2025 Calcium [Mass/Vol] 9.3 mg/dL 7.6-11.0 [facility] Serum or plasma ferritin oanh surement (mass/volume)Ordered By: Manohar Pablo on 04-22-2025 Ferritin [Mass/Vol] 578 ng/mL High 37-417 [facility] Serum or plasma iron saturat ion measurement (mass fraction)Ordered By: Manohar Pablo on 04-22-2025 Iron saturation [Mass fraction] 20.0 % 9-55 [facility] Serum or plasma urea nitroge n measurement (mass/volume)Ordered By: Manohar Pablo on 04-22-2025 Urea nitrogen [Mass/Vol] 30 mg/dL High 4-19 [facility] Sodium levelOrdered By: Caity Pablo on 04-22-2025 Sodium [Moles/Vol] 139 mmol/L 133-145 [facility] Orthopedic Visit Reporton Orthopedic Visit Report [facility] [place] [address] OFFICE VISIT Date of Service: 04/17/25 MR#: [id number] Acct: [id number] Name: STEVO GERMAIN Rep #: [id number] : 1950 Provider: Dr. 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 Deshaun Salcedo MD 04/17/25 4801. Part of today???s visit was documented by [ ], acting as scribe. STEVO GERMAIN is a 75 year old M here [...] He otherwise denies any injury." Supplemental Info [facility] Imaging Services [address] [place], [place] [id number] [phone] Ankle min 3 Views MR#: [id number] Acct: [id number] Name: STEVO GERMAIN Rep #: [id number] : (more content not included)... Normal [facility] CBC-Complete Blood Cnt No Di ffon 04-16-2025 Erythrocyte distribution width (RBC) [Ratio] 13.2 % Normal 11.6-14.6 [facility] Comment on above: Order Comment: 111 Performed By: #### L 501.9520, L506.0250, L502.0250, L501.5200, L3300.9910, L500.4050, L7400.3000, L503.0105, L503.6150, L503.6550, L503.6075, L100.0100, L506.0400 #### [facility] [address] [place], [address] Hematocrit (Bld) [Volume fraction] 29.1 % Low 40-54 [facility] Comment on above: Order Comment: 111 Performed By: #### L 501.9520, L506.0250, L502.0250, L501.5200, L3300.9910, L500.4050, L7400.3000, L503.0105, L503.6150, L503.6550, L503.6075, L100.0100, L506.0400 #### [facility] [address] [place], [address] Hemoglobin (Bld) [Mass/Vol] 9.8 g/dL Low 13.0-16.5 [facility] Comment on above: Order Comment: 111 Performed By: #### L 501.9520, L506.0250, L502.0250, L501.5200, L3300.9910, L500.4050, L7400.3000, L503.0105, L503.6150, L503.6550, L503.6075, L100.0100, L506.0400 #### [facility] [address] [place], [address] ([phone]) MCH (RBC) [Entitic mass] 32.5 pg High 27.0-32.0 [facility] Comment on above: Order Comment: 111 Performed By: #### L 501.9520, L506.0250, L502.0250, L501.5200, L3300.9910, L500.4050, L7400.3000, L503.0105, L503.6150, L503.6550, L503.6075, L100.0100, L506.0400 #### [facility] [address] [place], [place], [phone] (898) MCHC (RBC) [Mass/Vol] 33.7 g/dL Normal 32-36 [facility] Comment on above: Order Comment: 111 Performed By: #### L 501.9520, L506.0250, L502.0250, L501.5200, L3300.9910, L500.4050, L7400.3000, L503.0105, L503.6150, L503.6550, L503.6075, L100.0100, L506.0400 #### [facility] [address] [place], [place], [phone] MCV (RBC) [Entitic vol] 96.4 fL High 80-94 [facility] Comment on above: Order Comment: 111 Performed By: #### L 501.9520, L506.0250, L502.0250, L501.5200, L3300.9910, L500.4050, L7400.3000, L503.0105, L503.6150, L503.6550, L503.6075, L100.0100, L506.0400 #### [facility] [address] [place], [address] ([phone]) Platelet mean volume (Bld) [Entitic vol] 11.0 fL Normal 6.2-12.0 [facility] Comment on above: Order Comment: 111 Performed By: #### L 501.9520, L506.0250, L502.0250, L501.5200, L3300.9910, L500.4050, L7400.3000, L503.0105, L503.6150, L503.6550, L503.6075, L100.0100, L506.0400 #### [facility] [address] [place], [address] Platelets (Bld) [#/Vol] 302 10*3/uL Normal 150-450 [facility] Comment on above: Order Comment: 111 Performed By: #### L 501.9520, L506.0250, L502.0250, L501.5200, L3300.9910, L500.4050, L7400.3000, L503.0105, L503.6150, L503.6550, L503.6075, L100.0100, L506.0400 #### [facility] [address] [place], [address] RBC (Bld) [#/Vol] 3.02 10*6/uL Low 4.6-6.2 [facility] Comment on above: Order Comment: 111 Performed By: #### L 501.9520, L506.0250, L502.0250, L501.5200, L3300.9910, L500.4050, L7400.3000, L503.0105, L503.6150, L503.6550, L503.6075, L100.0100, L506.0400 #### [facility] [address] [place], [address] RDW SD 46.5 fl High 35.1-43.9 [facility] Comment on above: Order Comment: 111 Performed By: #### L 501.9520, L506.0250, L502.0250, L501.5200, L3300.9910, L500.4050, L7400.3000, L503.0105, L503.6150, L503.6550, L503.6075, L100.0100, L506.0400 #### [facility] [address] [place], [place], [id number] WBC (Bld) [#/Vol] 8.3 10*3/uL Normal 4.4-11.0 [facility] Comment on above: Order Comment: 111 Performed By: #### L 501.9520, L506.0250, L502.0250, L501.5200, L3300.9910, L500.4050, L7400.3000, L503.0105, L503.6150, L503.6550, L503.6075, L100.0100, L506.0400 #### [facility] [address] [facility] [place], [place], [id number] Erythrocyte distribution wid th ratioOrdered By: Manohar Pablo on 04-16-2025 Erythrocyte distribution width (RBC) [Ratio] 13.2 % 11.6-14.6 [facility] Erythrocyte distribution wid th standard deviationOrdered By: Manohar Pablo on 04-16-2025 Erythrocyte distribution width (RBC) [Ratio] 46.5 fl High 35.1-43.9 [facility] Hematocrit Auto (Bld) [Volum e fraction]Ordered By: Manohar Pablo on 04-16-2025 Hematocrit (Bld) [Volume fraction] 29.1 % Low 40-54 [facility] Hemoglobin measurementOrdere d By: Manohar Pablo on 04-16-2025 Hemoglobin (Bld) [Mass/Vol] 9.8 g/dL Low 13.0-16.5 [facility] MCV (mean corpuscular volume ) determinationOrdered By: Manohar Pablo on 04-16-2025 MCV (RBC) [Entitic vol] 96.4 fL High 80-94 [facility] Mean corpuscular hemoglobin (MCH) determinationOrdered By: Manohar Pablo on 04-16-2025 MCH (RBC) [Entitic mass] 32.5 pg High 27.0-32.0 [facility] Mean corpuscular hemoglobin concentration (MCHC) determinationOrdered By: Manohar Pablo on 04-16-2025 MCHC (RBC) [Mass/Vol] 33.7 g/dL 32-36 [facility] Mean platelet volume determi nationOrdered By: Manohar Pablo on 04-16-2025 Platelet mean volume (Bld) [Entitic vol] 11.0 fL 6.2-12.0 [facility] Platelet countOrdered By: Liane Pablo on 04-16-2025 Platelets (Bld) [#/Vol] 302 10*3/uL 150-450 [facility] RBC Auto (Bld) [#/Vol]Ordere d By: Manohar Pablo on 04-16-2025 RBC (Bld) [#/Vol] 3.02 10*6/uL Low 4.6-6.2 [facility] White blood cell (WBC) count Ordered By: Manohar Pablo on 04-16-2025 WBC (Bld) [#/Vol] 8.3 10*3/uL 4.4-11.0 [facility] Ankle min 3 Viewson 04-10-20 25 Ankle min 3 Views [facility] Services [address], [place] [id number] Ankle min 3 Views MR#: [id number] Acct: [id number] Name: STEVO GERMAIN Rep #: [id number] : 1950 M 75 From: [facility] PCP: PHYLLIS MAE Status: [facility] ER Study: Ankle min 3 Views Date of Exam: 04/10/25 Exam# [id number] Ordering Dr: Rakel Landers PROCEDURE: ANKLE MIN [...] inferior calcaneal spurring is seen. Reading Location: [address] CC: PHYLLIS MAE; ALLAN Marquez [employer] Dual Rate Supervisor: Signed Normal [facility] Emergency Department Summary on 04-10-2025 Emergency Department Summary [facility] Medical Records Department [address] [place] [address] Emergency Department Summary 04/10/25 MR#: [id number] Acct: [id number] Name: STEVO GERMAIN Rep #: [id number] : 1950 75 From: Rakel LEMUS PCP: [...] Physical Exam Const Vital Signs: 04/10/25 15:18 06/12/25 15:32 04/10/25 15:33 Temperature 97.2 F L [...] no fol (more content not included)... Normal [facility] Knee 3 Viewson 04-10-2025 Knee 3 Views [facility] Imaging Services [address] [place] [address] Knee 3 Views MR#: [id number] Acct: [id number] Name: STEVO GERMAIN Rep #: [id number] : 1950 M 75 From: Morris Pope MD PCP: PHYLLIS MAE Status: REG ER Study: Knee 3 Views Date of Exam: 04/10/25 Exam# [id number] Ordering Dr: Rakel Landers PROCEDURE: KNEE 3 [...] 3. Other findings as noted. Reading Location: [place] [address] CC: PHYLLIS MAE; ALLAN Marquez [employer] Supervisor: Signed Normal [facility] Urinalysis, Completeon 02-24 BACTERIA 0 SEEN Normal None Seen [facility] Comment on above: Order Comment: UNKNO WN METHOD OF COLLECTIONCLEAN CATCH Performed By: #### L 501.2120, L506.0250, L502.0250, L501.5200, L3300.9910, L500.4050, L7400.3000, L503.0105, L503.6150, L503.6550, L503.6075, L100.0100, L506.0400 #### [facility] Laboratory [address] [place], [place], [address] EPI,SQUAMOUS 0 SEEN Normal 0-5 [facility] Comment on above: Order Comment: UNKNO WN METHOD OF COLLECTIONCLEAN CATCH Performed By: #### L 501.9520, L506.0250, L502.0250, L501.5200, L3300.9910, L500.4050, L7400.3000, L503.0105, L503.6150, L503.6550, L503.6075, L100.0100, L506.0400 #### [facility] Laboratory [address] [place], [place], [id number] Mucus Ql (Urine sed) 0 SEEN Normal [facility] Comment on above: Order Comment: UNKNO WN METHOD OF COLLECTIONCLEAN CATCH Performed By: #### L 501.9520, L506.0250, L502.0250, L501.5200, L3300.9910, L500.4050, L7400.3000, L503.0105, L503.6150, L503.6550, L503.6075, L100.0100, L506.0400 #### [facility] Laboratory [address] [place], [address] RBC 0 SEEN Normal 0-5 [facility] Comment on above: Order Comment: UNKNO WN METHOD OF COLLECTIONCLEAN CATCH Performed By: #### L 501.9520, L506.0250, L502.0250, L501.5200, L3300.9910, L500.4050, L7400.3000, L503.0105, L503.6150, L503.6550, L503.6075, L100.0100, L506.0400 #### [facility] Laboratory [address] [place], [place], [address] WBC 0 SEEN Normal 0-5 [facility] Comment on above: Order Comment: UNKNO WN METHOD OF COLLECTIONCLEAN CATCH Performed By: #### L 501.9520, L506.0250, L502.0250, L501.5200, L3300.9910, L500.4050, L7400.3000, L503.0105, L503.6150, L503.6550, L503.6075, L100.0100, L506.0400 #### [facility] Laboratory [address] [place], [place], [id number] Bilirubin Test strip Ql (U)O rdered By: Sharmila Arteaga on 02-23-2025 Bilirubin Ql (U) Negative Negative [facility] Ketones Test strip Ql (U)Ord ered By: Sharmila Arteaga on 02-23-2025 Ketones Ql (U) Negative Negative [facility] Microscopic analysis of urin e for red blood cells (RBC)Ordered By: Sharmila Arteaga on 02-23-2025 Microscopic analysis of urine for red blood cells (RBC) 0 SEEN /hpf 0-5 [facility] Mucus LM Ql (Urine sed)Order ed By: Sharmila Arteaga on 02-23-2025 Mucus Ql (Urine sed) 0 SEEN /hpf [facility] Nitrite Test strip Ql (U)Ord ered By: Sharmila Arteaga on 02-23-2025 Nitrite Ql (U) Negative Negative [facility] Protein Test strip Ql (U)Ord ered By: Sharmila Arteaga on 02-23-2025 Protein Ql (U) 100 mg/dl High Negative [facility] Squamous epithelial cells de tection in urine sediment by light microscopyOrdered By: Sharmila Arteaga on 02-23-2025 Epithelial cells.squamous LM Ql (Urine sed) 0 SEEN /hpf 0-5 [facility] Urine clarityOrdered By: James Arteaga on 02-23-2025 Clarity (U) Clear Clear [facility] Urine color determinationOrd ered By: Sharmila Arteaga on 02-23-2025 Color (U) Yellow Yellow [facility] Urine glucose detectionOrder ed By: Sharmila Arteaga on 02-23-2025 Glucose Ql (U) 250 mg/dl High Normal [facility] Urine leukocyte esterase det ection by dipstickOrdered By: Sharmila Arteaga on 02-23-2025 Leukocyte esterase Test strip Ql (U) Negative Negative [facility] Urine pHOrdered By: Sharmila Morgan udla on 02-23-2025 pH (U) 6.0 [pH] 5.0 - 8.0 [facility] Urine sediment bacteria coun t by microscopy (number/high power field)Ordered By: Sharmila Arteaga on 02-23-2025 Bacteria LM.HPF (Urine sed) [#/Area] 0 /[HPF] None Seen [facility] Urine specific gravity measu rementOrdered By: Sharmila Arteaga on 02-23-2025 Specific gravity (U) [Rel density] 1.015 1.002-1.030 [facility] Urine urobilinogen measureme ntOrdered By: Sharmila Arteaga on 02-23-2025 Urobilinogen Ql (U) Normal mg/dl Normal [facility] White blood cell countOrdere d By: Sharmila Arteaga on 02-23-2025 White blood cell count 0 SEEN /hpf 0-5 [facility] Anion gap in Serum or Plasma Ordered By: Manohar Pablo on 02-19-2025 Anion gap [Moles/Vol] 11 mmol/L 5-15 [facility] BUN/creatinine ratioOrdered By: Manohar Pablo on 02-19-2025 Urea nitrogen/Creatinine [Mass ratio] 19.4 mg/mg 10-20 [facility] CBC-Complete Blood Cnt No Di ffon 02-19-2025 Erythrocyte distribution width (RBC) [Ratio] 12.7 % Normal 11.6-14.6 [facility] Comment on above: Performed By: #### L 501.9520, L506.0250, L502.0250, L501.5200, L3300.9910, L500.4050, L7400.3000, L503.0105, L503.6150, L503.6550, L503.6075, L100.0100, L506.0400 #### [facility] Laboratory [address] [place], [address] Hematocrit (Bld) [Volume fraction] 26.7 % Low 40-54 [facility] Comment on above: Performed By: #### L 501.9520, L506.0250, L502.0250, L501.5200, L3300.9910, L500.4050, L7400.3000, L503.0105, L503.6150, L503.6550, L503.6075, L100.0100, L506.0400 #### [facility] Laboratory [address] [facility] [place], [address] Hemoglobin (Bld) [Mass/Vol] 9.2 g/dL Low 13.0-16.5 [facility] Comment on above: Performed By: #### L 501.9520, L506.0250, L502.0250, L501.5200, L3300.9910, L500.4050, L7400.3000, L503.0105, L503.6150, L503.6550, L503.6075, L100.0100, L506.0400 #### [facility] Laboratory [address] [facility] [place], [address] MCH (RBC) [Entitic mass] 33.1 pg High 27.0-32.0 [facility] Comment on above: Performed By: #### L 501.9520, L506.0250, L502.0250, L501.5200, L3300.9910, L500.4050, L7400.3000, L503.0105, L503.6150, L503.6550, L503.6075, L100.0100, L506.0400 #### [facility] Laboratory [address] [place], [address] MCHC (RBC) [Mass/Vol] 34.5 g/dL Normal 32-36 [facility] Comment on above: Performed By: #### L 501.9520, L506.0250, L502.0250, L501.5200, L3300.9910, L500.4050, L7400.3000, L503.0105, L503.6150, L503.6550, L503.6075, L100.0100, L506.0400 #### [facility] Laboratory [address] [place], [address] MCV (RBC) [Entitic vol] 96.0 fL High 80-94 [facility] Comment on above: Performed By: #### L 501.9520, L506.0250, L502.0250, L501.5200, L3300.9910, L500.4050, L7400.3000, L503.0105, L503.6150, L503.6550, L503.6075, L100.0100, L506.0400 #### [facility] Laboratory [address] [place], [address] Platelet mean volume (Bld) [Entitic vol] 11.7 fL Normal 6.2-12.0 [facility] Comment on above: Performed By: #### L 501.9520, L506.0250, L502.0250, L501.5200, L3300.9910, L500.4050, L7400.3000, L503.0105, L503.6150, L503.6550, L503.6075, L100.0100, L506.0400 #### [facility] Laboratory [address] [place], [address] Platelets (Bld) [#/Vol] 253 10*3/uL Normal 150-450 [facility] Comment on above: Performed By: #### L 501.9520, L506.0250, L502.0250, L501.5200, L3300.9910, L500.4050, L7400.3000, L503.0105, L503.6150, L503.6550, L503.6075, L100.0100, L506.0400 #### [facility] Laboratory [address] [place], [place], [phone] (258) RBC (Bld) [#/Vol] 2.78 10*6/uL Low 4.6-6.2 [facility] Comment on above: Performed By: #### L 501.9520, L506.0250, L502.0250, L501.5200, L3300.9910, L500.4050, L7400.3000, L503.0105, L503.6150, L503.6550, L503.6075, L100.0100, L506.0400 #### [facility] Laboratory [address] [place], [place], [phone] (757) RDW SD 44.9 fl High 35.1-43.9 [facility] Comment on above: Performed By: #### L 501.9520, L506.0250, L502.0250, L501.5200, L3300.9910, L500.4050, L7400.3000, L503.0105, L503.6150, L503.6550, L503.6075, L100.0100, L506.0400 #### [facility] Laboratory [address] [place], [place], [phone] (182) WBC (Bld) [#/Vol] 8.5 10*3/uL Normal 4.4-11.0 [facility] Comment on above: Performed By: #### L 501.9520, L506.0250, L502.0250, L501.5200, L3300.9910, L500.4050, L7400.3000, L503.0105, L503.6150, L503.6550, L503.6075, L100.0100, L506.0400 #### [facility] Laboratory [address] [place], [place], [phone] (477) Carbon dioxide, total [Moles /volume] in Central venous bloodOrdered By: Manohar alcaraz 02-19-2025 CO2 [Moles/Vol] 19.7 mmol/L Low 21.0-32.0 [facility] Chloride assayOrdered By: Liane Pablo on 02-19-2025 Chloride [Moles/Vol] 100 mmol/L 98-108 [facility] Erythrocyte distribution wid th ratioOrdered By: Manohar Pablo on 02-19-2025 Erythrocyte distribution width (RBC) [Ratio] 12.7 % 11.6-14.6 [facility] Erythrocyte distribution wid th standard deviationOrdered By: Manohar Pablo on 02-19-2025 Erythrocyte distribution width (RBC) [Ratio] 44.9 fl High 35.1-43.9 [facility] Glomerular filtration rate ( GFR) estimation/1.73 sq m using serum, plasma, or whole bOrdered By: Manhoar Pablo on 02-19-2025 GFR/1.73 sq M.predicted among non-blacks MDRD (S/P/Bld) [Vol rate/Area] 39 mL/min/{1.73_m2} Low >60 [facility] Comment on above: mL/min/1.73m2 CKD-EP I Creatinine Equation (2020) Hematocrit Auto (Bld) [Volum e fraction]Ordered By: Manohar Pablo on 02-19-2025 Hematocrit (Bld) [Volume fraction] 26.7 % Low 40-54 [facility] Hemoglobin measurementOrdere d By: Manohar Pablo 02-19-2025 Hemoglobin (Bld) [Mass/Vol] 9.2 g/dL Low 13.0-16.5 [facility] MCV (mean corpuscular volume ) determinationOrdered By: Manohar Pablo on 02-19-2025 MCV (RBC) [Entitic vol] 96.0 fL High 80-94 [facility] Mean corpuscular hemoglobin (MCH) determinationOrdered By: Manohar Pablo 02-19-2025 MCH (RBC) [Entitic mass] 33.1 pg High 27.0-32.0 [facility] Mean corpuscular hemoglobin concentration (MCHC) determinationOrdered By: Manohar Pablo 02-19-2025 MCHC (RBC) [Mass/Vol] 34.5 g/dL 32-36 [facility] Mean platelet volume determi nationOrdered By: Manohar Pablo on 02-19-2025 Platelet mean volume (Bld) [Entitic vol] 11.7 fL 6.2-12.0 [facility] Platelet countOrdered By: Liane Pablo on 02-19-2025 Platelets (Bld) [#/Vol] 253 10*3/uL 150-450 [facility] Potassium measurement (mass/ volume)Ordered By: Manohar Pablo on 02-19-2025 Potassium (Unsp spec) [Mass/Vol] 4.3 mmol/L 3.3-5.1 [facility] RBC Auto (Bld) [#/Vol]Ordere d By: Manohar Pablo on 02-19-2025 RBC (Bld) [#/Vol] 2.78 10*6/uL Low 4.6-6.2 [facility] Renal Profileon 02-19-2025 Albumin [Mass/Vol] 3.1 g/dL Low 3.4-4.8 [facility] Comment on above: Performed By: #### L 501.9520, L506.0250, L502.0250, L501.5200, L3300.9910, L500.4050, L7400.3000, L503.0105, L503.6150, L503.6550, L503.6075, L100.0100, L506.0400 #### [facility] Laboratory [address] [place], [place], [id number] BUN/CRE 19.4 RATIO Normal 10-20 [facility] Comment on above: Performed By: #### L 501.9520, L506.0250, L502.0250, L501.5200, L3300.9910, L500.4050, L7400.3000, L503.0105, L503.6150, L503.6550, L503.6075, L100.0100, L506.0400 #### [facility] Laboratory [address] [place], [place], [id number] Calcium [Mass/Vol] 8.7 mg/dL Normal 7.6-11.0 [facility] Comment on above: Performed By: #### L 501.9520, L506.0250, L502.0250, L501.5200, L3300.9910, L500.4050, L7400.3000, L503.0105, L503.6150, L503.6550, L503.6075, L100.0100, L506.0400 #### [facility] Laboratory [address] [place], [address] Chloride [Moles/Vol] 100 mmol/L Normal 98-108 [facility] Comment on above: Performed By: #### L 501.9520, L506.0250, L502.0250, L501.5200, L3300.9910, L500.4050, L7400.3000, L503.0105, L503.6150, L503.6550, L503.6075, L100.0100, L506.0400 #### [facility] Laboratory [address] [place], [address] CO2 [Moles/Vol] 19.7 mmol/L Low 21.0-32.0 [facility] Comment on above: Performed By: #### L 501.9520, L506.0250, L502.0250, L501.5200, L3300.9910, L500.4050, L7400.3000, L503.0105, L503.6150, L503.6550, L503.6075, L100.0100, L506.0400 #### [facility] Laboratory [address] [place], [address] Creatinine [Mass/Vol] 1.78 mg/dL High 0.70-1.20 [facility] Comment on above: Performed By: #### L 501.9520, L506.0250, L502.0250, L501.5200, L3300.9910, L500.4050, L7400.3000, L503.0105, L503.6150, L503.6550, L503.6075, L100.0100, L506.0400 #### [facility] Laboratory [address] [place], [address] GAP 11 Normal 5-15 [facility] Comment on above: Performed By: #### L 501.9520, L506.0250, L502.0250, L501.5200, L3300.9910, L500.4050, L7400.3000, L503.0105, L503.6150, L503.6550, L503.6075, L100.0100, L506.0400 #### [facility] Laboratory [address] [place], [place], [phone] (314) GFR/1.73 sq M.predicted among non-blacks MDRD (S/P/Bld) [Vol rate/Area] 39 mL/min/{1.73_m2} Low >60 [facility] Comment on above: Result Comment: mL/m in/1.73m2 CKD-EPI Creatinine Equation (2020) Performed By: #### L 501.9520, L506.0250, L502.0250, L501.5200, L3300.9910, L500.4050, L7400.3000, L503.0105, L503.6150, L503.6550, L503.6075, L100.0100, L506.0400 #### [facility] Laboratory [address] [place], [place], [phone] (776) Glucose [Mass/Vol] 324 mg/dL High 70-99 [facility] Comment on above: Performed By: #### L 501.9520, L506.0250, L502.0250, L501.5200, L3300.9910, L500.4050, L7400.3000, L503.0105, L503.6150, L503.6550, L503.6075, L100.0100, L506.0400 #### [facility] Laboratory [address] [place], [address] Phosphate [Mass/Vol] 3.1 mg/dL Normal 2.7-4.5 [facility] Comment on above: Performed By: #### L 501.9520, L506.0250, L502.0250, L501.5200, L3300.9910, L500.4050, L7400.3000, L503.0105, L503.6150, L503.6550, L503.6075, L100.0100, L506.0400 #### [facility] Laboratory [address] [place], [address] Potassium [Moles/Vol] 4.3 mmol/L Normal 3.3-5.1 [facility] Comment on above: Performed By: #### L 501.9520, L506.0250, L502.0250, L501.5200, L3300.9910, L500.4050, L7400.3000, L503.0105, L503.6150, L503.6550, L503.6075, L100.0100, L506.0400 #### [facility] Laboratory [address] [place], [address] Sodium [Moles/Vol] 131 mmol/L Low 133-145 [facility] Comment on above: Performed By: #### L 501.9520, L506.0250, L502.0250, L501.5200, L3300.9910, L500.4050, L7400.3000, L503.0105, L503.6150, L503.6550, L503.6075, L100.0100, L506.0400 #### [facility] Laboratory [address] [place], [address] Urea nitrogen [Mass/Vol] 35 mg/dL High 4-19 [facility] Comment on above: Performed By: #### L 501.9520, L506.0250, L502.0250, L501.5200, L3300.9910, L500.4050, L7400.3000, L503.0105, L503.6150, L503.6550, L503.6075, L100.0100, L506.0400 #### [facility] [place], [address] Serum creatinine measurement (mass/volume)Ordered By: Manohar Pablo on 02-19-2025 Creatinine [Mass/Vol] 1.78 mg/dL High 0.70-1.20 [facility] Serum glucose measurement (m ass/volume)Ordered By: Manohar Pablo on 02-19-2025 Glucose [Mass/Vol] 324 mg/dL High 70-99 [facility] Serum or plasma albumin quynh urement (mass/volume)Ordered By: Manohar Pablo on 02-19-2025 Albumin [Mass/Vol] 3.1 g/dL Low 3.4-4.8 [facility] Serum or plasma calcium quynh urement (mass/volume)Ordered By: Manohar Pablo on 02-19-2025 Calcium [Mass/Vol] 8.7 mg/dL 7.6-11.0 [facility] Serum or plasma urea nitroge n measurement (mass/volume)Ordered By: Manohar Pablo on 02-19-2025 Urea nitrogen [Mass/Vol] 35 mg/dL High 4-19 [facility] Sodium levelOrdered By: Caity Pablo on 02-19-2025 Sodium [Moles/Vol] 131 mmol/L Low 133-145 [facility] White blood cell (WBC) count Ordered By: Manohar Pablo on 02-19-2025 WBC (Bld) [#/Vol] 8.5 10*3/uL 4.4-11.0 [facility] Anion gap in Serum or Plasma Ordered By: Sharmila Arteaga on 01-27-2025 Anion gap [Moles/Vol] 12 mmol/L 5-15 [facility] BUN/creatinine ratioOrdered By: Sharmila Arteaga on 01-27-2025 Urea nitrogen/Creatinine [Mass ratio] 18.5 mg/mg 10-20 [facility] Bilirubin, totalOrdered By: Sharmila Arteaga on 01-27-2025 Bilirubin [Mass/Vol] mg/dL 0.00-1.30 [facility] CBC-Complete Blood Cnt No Di ffon 01-27-2025 Erythrocyte distribution width (RBC) [Ratio] 13.4 % Normal 11.6-14.6 [facility] Comment on above: Order Comment: 111 Performed By: #### L 501.9520, L506.0250, L502.0250, L501.5200, L3300.9910, L500.4050, L7400.3000, L503.0105, L503.6150, L503.6550, L503.6075, L100.0100, L506.0400 #### [facility] Laboratory [address] [place], [address] Hematocrit (Bld) [Volume fraction] 31.4 % Low 40-54 [facility] Comment on above: Order Comment: 111 Performed By: #### L 501.9520, L506.0250, L502.0250, L501.5200, L3300.9910, L500.4050, L7400.3000, L503.0105, L503.6150, L503.6550, L503.6075, L100.0100, L506.0400 #### [facility] [address] [place], [address] Hemoglobin (Bld) [Mass/Vol] 10.7 g/dL Low 13.0-16.5 [facility] Comment on above: Order Comment: 111 Performed By: #### L 501.9520, L506.0250, L502.0250, L501.5200, L3300.9910, L500.4050, L7400.3000, L503.0105, L503.6150, L503.6550, L503.6075, L100.0100, L506.0400 #### [facility] Laboratory [address] [place], [address] MCH (RBC) [Entitic mass] 33.2 pg High 27.0-32.0 [facility] Comment on above: Order Comment: 111 Performed By: #### L 501.9520, L506.0250, L502.0250, L501.5200, L3300.9910, L500.4050, L7400.3000, L503.0105, L503.6150, L503.6550, L503.6075, L100.0100, L506.0400 #### [facility] [address] [place], [address] MCHC (RBC) [Mass/Vol] 34.1 g/dL Normal 32-36 [facility] Comment on above: Order Comment: 111 Performed By: #### L 501.9520, L506.0250, L502.0250, L501.5200, L3300.9910, L500.4050, L7400.3000, L503.0105, L503.6150, L503.6550, L503.6075, L100.0100, L506.0400 #### [facility] [address] [place], [address] MCV (RBC) [Entitic vol] 97.5 fL High 80-94 [facility] Comment on above: Order Comment: 111 Performed By: #### L 501.9520, L506.0250, L502.0250, L501.5200, L3300.9910, L500.4050, L7400.3000, L503.0105, L503.6150, L503.6550, L503.6075, L100.0100, L506.0400 #### [facility] Laboratory [address] [place], [address] Platelet mean volume (Bld) [Entitic vol] 11.5 fL Normal 6.2-12.0 [facility] Comment on above: Order Comment: 111 Performed By: #### L 501.9520, L506.0250, L502.0250, L501.5200, L3300.9910, L500.4050, L7400.3000, L503.0105, L503.6150, L503.6550, L503.6075, L100.0100, L506.0400 #### [facility] Laboratory [address] [place], [place], [id number] (123) Platelets (Bld) [#/Vol] 339 10*3/uL Normal 150-450 [facility] Comment on above: Order Comment: 111 Performed By: #### L 501.9520, L506.0250, L502.0250, L501.5200, L3300.9910, L500.4050, L7400.3000, L503.0105, L503.6150, L503.6550, L503.6075, L100.0100, L506.0400 #### [facility] Laboratory [address] [place], [place], [phone] (244) RBC (Bld) [#/Vol] 3.22 10*6/uL Low 4.6-6.2 [facility] Comment on above: Order Comment: 111 Performed By: #### L 501.9520, L506.0250, L502.0250, L501.5200, L3300.9910, L500.4050, L7400.3000, L503.0105, L503.6150, L503.6550, L503.6075, L100.0100, L506.0400 #### [facility] Laboratory [address] [place], [place], [phone] (475) RDW SD 47.8 fl High 35.1-43.9 [facility] Comment on above: Order Comment: 111 Performed By: #### L 501.9520, L506.0250, L502.0250, L501.5200, L3300.9910, L500.4050, L7400.3000, L503.0105, L503.6150, L503.6550, L503.6075, L100.0100, L506.0400 #### [facility] [address] [place], [address] WBC (Bld) [#/Vol] 7.4 10*3/uL Normal 4.4-11.0 [facility] Comment on above: Order Comment: 111 Performed By: #### L 501.9520, L506.0250, L502.0250, L501.5200, L3300.9910, L500.4050, L7400.3000, L503.0105, L503.6150, L503.6550, L503.6075, L100.0100, L506.0400 #### [facility] [address] [place], [address] Calculated very low density lipoprotein (VLDL) cholesterol measurementOrdered By: Sharmila Arteaga on 01-27-2025 Calculated very low density lipoprotein (VLDL) cholesterol measurement 51 mg/dL High 5-40 [facility] VLDL Cholesterol 51 mg/dL High 5-40 [facility] Carbon dioxide, total [Moles /volume] in Central venous bloodOrdered By: Sharmila Arteaga on 01-27-2025 CO2 [Moles/Vol] 17.6 mmol/L Low 21.0-32.0 [facility] Chloride assayOrdered By: Boom Arteaga on 01-27-2025 Chloride [Moles/Vol] 105 mmol/L 98-108 [facility] Comprehensive Metabolic Prof ilon 01-27-2025 Albumin [Mass/Vol] 3.5 g/dL Normal 3.4-4.8 [facility] Comment on above: Order Comment: 111 Performed By: #### L [id number], L506.0250, L502.0250, L501.5200, L3300.9910, L500.4050, L7400.3000, L503.0105, L503.6150, L503.6550, L503.6075, L100.0100, L506.0400 #### [facility] [address] [place], [address] Albumin/Globulin [Mass ratio] 1.3 {ratio} Normal 0.9-2.4 [facility] Comment on above: Order Comment: 111 Performed By: #### L [id number], L506.0250, L502.0250, L501.5200, L3300.9910, L500.4050, L7400.3000, L503.0105, L503.6150, L503.6550, L503.6075, L100.0100, L506.0400 #### [facility] [address] [place], [place], [id number] ALK PHOS 44 U/L Normal 40-129 [facility] Comment on above: Order Comment: 111 Performed By: #### L [id number], L506.0250, L502.0250, L501.5200, L3300.9910, L500.4050, L7400.3000, L503.0105, L503.6150, L503.6550, L503.6075, L100.0100, L506.0400 #### [facility] [address] [place], [place], [id number] ALT [Catalytic activity/Vol] 17 U/L Normal <=46 [facility] Comment on above: Order Comment: 111 Performed By: #### L 501.9520, L506.0250, L502.0250, L501.5200, L3300.9910, L500.4050, L7400.3000, L503.0105, L503.6150, L503.6550, L503.6075, L100.0100, L506.0400 #### [facility] [address] [place], [place], [phone] (494) AST [Catalytic activity/Vol] 20 U/L Normal <=37 [facility] Comment on above: Order Comment: 111 Performed By: #### L 501.9520, L506.0250, L502.0250, L501.5200, L3300.9910, L500.4050, L7400.3000, L503.0105, L503.6150, L503.6550, L503.6075, L100.0100, L506.0400 #### [facility] [address] [place], [address] BUN/CRE 18.5 RATIO Normal 10-20 [facility] Comment on above: Order Comment: 111 Performed By: #### L [id number], L506.0250, L502.0250, L501.5200, L3300.9910, L500.4050, L7400.3000, L503.0105, L503.6150, L503.6550, L503.6075, L100.0100, L506.0400 #### [facility] [address] [place], [address] Calcium [Mass/Vol] 9.5 mg/dL Normal 7.6-11.0 [facility] Comment on above: Order Comment: 111 Performed By: #### L 501.9520, L506.0250, L502.0250, L501.5200, L3300.9910, L500.4050, L7400.3000, L503.0105, L503.6150, L503.6550, L503.6075, L100.0100, L506.0400 #### [facility] [address] [place], [address] Chloride [Moles/Vol] 105 mmol/L Normal 98-108 [facility] Comment on above: Order Comment: 111 Performed By: #### L 501.9520, L506.0250, L502.0250, L501.5200, L3300.9910, L500.4050, L7400.3000, L503.0105, L503.6150, L503.6550, L503.6075, L100.0100, L506.0400 #### [facility] [address] [place], [address] CO2 [Moles/Vol] 17.6 mmol/L Low 21.0-32.0 [facility] Comment on above: Order Comment: 111 Performed By: #### L 501.9520, L506.0250, L502.0250, L501.5200, L3300.9910, L500.4050, L7400.3000, L503.0105, L503.6150, L503.6550, L503.6075, L100.0100, L506.0400 #### [facility] [address] [place], [place], [id number] Creatinine [Mass/Vol] 2.20 mg/dL High 0.70-1.20 [facility] Comment on above: Order Comment: 111 Performed By: #### L 501.9520, L506.0250, L502.0250, L501.5200, L3300.9910, L500.4050, L7400.3000, L503.0105, L503.6150, L503.6550, L503.6075, L100.0100, L506.0400 #### [facility] [address] [place], [place], [id number] GAP 12 Normal 5-15 [facility] Comment on above: Order Comment: 111 Performed By: #### L 501.9520, L506.0250, L502.0250, L501.5200, L3300.9910, L500.4050, L7400.3000, L503.0105, L503.6150, L503.6550, L503.6075, L100.0100, L506.0400 #### [facility] [address] [place], [place], [id number] GFR/1.73 sq M.predicted among non-blacks MDRD (S/P/Bld) [Vol rate/Area] 30 mL/min/{1.73_m2} Low >60 [facility] Comment on above: Order Comment: 111 Result Comment: mL/m in/1.73m2 CKD-EPI Creatinine Equation (2020) Performed By: #### L 501.9520, L506.0250, L502.0250, L501.5200, L3300.9910, L500.4050, L7400.3000, L503.0105, L503.6150, L503.6550, L503.6075, L100.0100, L506.0400 #### [facility] [address] [place], [address] Globulin (S) [Mass/Vol] 2.7 g/dL Normal 2.2-4.2 [facility] Comment on above: Order Comment: 111 Performed By: #### L 501.9520, L506.0250, L502.0250, L501.5200, L3300.9910, L500.4050, L7400.3000, L503.0105, L503.6150, L503.6550, L503.6075, L100.0100, L506.0400 #### [facility] [address] [place], [address] Glucose [Mass/Vol] 258 mg/dL High 70-99 [facility] Comment on above: Order Comment: 111 Performed By: #### L 501.9520, L506.0250, L502.0250, L501.5200, L3300.9910, L500.4050, L7400.3000, L503.0105, L503.6150, L503.6550, L503.6075, L100.0100, L506.0400 #### [facility] [address] [place], [address] Potassium [Moles/Vol] 5.1 mmol/L Normal 3.3-5.1 [facility] Comment on above: Order Comment: 111 Performed By: #### L 501.9520, L506.0250, L502.0250, L501.5200, L3300.9910, L500.4050, L7400.3000, L503.0105, L503.6150, L503.6550, L503.6075, L100.0100, L506.0400 #### [facility] [address] [place], [address] Sodium [Moles/Vol] 135 mmol/L Normal 133-145 [facility] Comment on above: Order Comment: 111 Performed By: #### L 501.9520, L506.0250, L502.0250, L501.5200, L3300.9910, L500.4050, L7400.3000, L503.0105, L503.6150, L503.6550, L503.6075, L100.0100, L506.0400 #### [facility] [address] [place], [address] T BILI < 0.15 Normal 0.00-1.30 [facility] Comment on above: Order Comment: 111 Performed By: #### L 501.9520, L506.0250, L502.0250, L501.5200, L3300.9910, L500.4050, L7400.3000, L503.0105, L503.6150, L503.6550, L503.6075, L100.0100, L506.0400 #### [facility] [address] [place], [address] T PROT 6.3 g/dL Normal 5.9-8.4 [facility] Comment on above: Order Comment: 111 Performed By: #### L 501.9520, L506.0250, L502.0250, L501.5200, L3300.9910, L500.4050, L7400.3000, L503.0105, L503.6150, L503.6550, L503.6075, L100.0100, L506.0400 #### [facility] [address] [place], [address] Urea nitrogen [Mass/Vol] 41 mg/dL High 4-19 [facility] Comment on above: Order Comment: 111 Performed By: #### L 501.9520, L506.0250, L502.0250, L501.5200, L3300.9910, L500.4050, L7400.3000, L503.0105, L503.6150, L503.6550, L503.6075, L100.0100, L506.0400 #### [facility] [place], [address] Erythrocyte distribution wid th (RBC) [Ratio]Ordered By: Sharmila Arteaga on 01-27-2025 Erythrocyte distribution width (RBC) [Entitic vol] 47.8 fL High 35.1-43.9 [facility] Erythrocyte distribution wid th ratioOrdered By: Sharmila Arteaga on 01-27-2025 Erythrocyte distribution width (RBC) [Ratio] 13.4 % 11.6-14.6 [facility] Erythrocyte distribution wid th standard deviationOrdered By: Sharmila Arteaga on 01-27-2025 Erythrocyte distribution width (RBC) [Ratio] 47.8 fl High 35.1-43.9 [facility] GFR/1.73 sq M.predicted roxann g non-blacks MDRD (S/P/Bld) [Vol rate/Area]Ordered By: Sharmila Arteaga on 01-27-2025 Estimated GFR (MDRD) Non-Af Amer 30 Low >60 [facility] Comment on above: mL/min/1.73m2 CKD-EP I Creatinine Equation (2020) Glomerular filtration rate ( GFR) estimation/1.73 sq m using serum, plasma, or whole bOrdered By: Sharmila Arteaga on 01-27-2025 GFR/1.73 sq M.predicted among non-blacks MDRD (S/P/Bld) [Vol rate/Area] 30 mL/min/{1.73_m2} Low >60 [facility] Comment on above: mL/min/1.73m2 CKD-EP I Creatinine Equation (2020) Hematocrit Auto (Bld) [Volum e fraction]Ordered By: Sharmila Arteaga on 01-27-2025 Hematocrit (Bld) [Volume fraction] 31.4 % Low 40-54 [facility] Hemoglobin A1con 01-27-2025 HbA1c (Bld) [Mass fraction] 7.7 % Normal <=5.6 [facility] Comment on above: Order Comment: 111 Performed By: #### L 501.9520, L506.0250, L502.0250, L501.5200, L3300.9910, L500.4050, L7400.3000, L503.0105, L503.6150, L503.6550, L503.6075, L100.0100, L506.0400 #### [facility] [address] [place], [address] Hemoglobin A1c percentageOrd ered By: Sharmila Arteaga on 01-27-2025 HbA1c (Bld) [Mass fraction] 7.7 % >5.7 [facility] Hemoglobin measurementOrdere d By: Sharmila Arteaga on 01-27-2025 Hemoglobin (Bld) [Mass/Vol] 10.7 g/dL Low 13.0-16.5 [facility] L503.0106on 01-27-2025 Cobalamin (Vitamin B12) [Mass/Vol] 536 pg/mL Normal 180-914 [facility] Comment on above: Order Comment: 111 Performed By: #### L [id number], L506.0250, L502.0250, L501.5200, L3300.9910, L500.4050, L7400.3000, L503.0105, L503.6150, L503.6550, L503.6075, L100.0100, L506.0400 #### [facility] [address] [place], [address] L506.1001on 01-27-2025 Vitamin D 25-OH 14.8 ng/mL Low 30-100 [facility] Comment on above: Order Comment: 111 Result Comment: Celina min D Status Deficiency: <20 ng/mL (50nmol/L) Insufficiency: 20-30 ng/mL (50-75 nmol/L) Sufficiency: 30-100 ng/mL (75-250 nmol/L) Toxicity: >100 ng/mL (>250 nmol/L) Performed By: #### L [id number], L506.0250, L502.0250, L501.5200, L3300.9910, L500.4050, L7400.3000, L503.0105, L503.6150, L503.6550, L503.6075, L100.0100, L506.0400 #### [facility] [address] [place], [place], [id number] LDL calc ser/plasOrdered By: Sharmila Arteaga on 01-27-2025 Cholesterol in LDL [Mass/Vol] 37 mg/dL [facility] Comment on above: Vqfgoasdpd=752-029 m g/dL & Higher Bcak=806 mg/dL or greater LDL Cholesterol, Calculated 37 mg/dL [facility] Comment on above: Dtjvihcyte=584-422 m g/dL & Higher Zlxt=751 mg/dL or greater Laboratory - Chemistry and C hemistry - challengeOrdered By: Sharmila Arteaga on 01-27-2025 AST [Catalytic activity/Vol] 20 U/L <38 [facility] Lipid Profileon 01-27-2025 CHOL:HDL 4.11 Normal [facility] Comment on above: Order Comment: 111 Performed By: #### L 501.9520, L506.0250, L502.0250, L501.5200, L3300.9910, L500.4050, L7400.3000, L503.0105, L503.6150, L503.6550, L503.6075, L100.0100, L506.0400 #### [facility] [address] [place], [address] Cholesterol [Mass/Vol] 116 mg/dL Normal <=200 [facility] Comment on above: Order Comment: 111 Result Comment: Chol esterol level, Desirable <200 mg/dL Borderline high cholesterol 200-239 mg/dL High cholesterol >=240 mg/dL Recommendations of the NCEP Adult Treatment Panel for the following risk-cutoff thresholds for the [place] population. Performed By: #### L 501.9520, L506.0250, L502.0250, L501.5200, L3300.9910, L500.4050, L7400.3000, L503.0105, L503.6150, L503.6550, L503.6075, L100.0100, L506.0400 #### [facility] [address] [place], [address] Cholesterol in HDL [Mass/Vol] 28 mg/dL Low [facility] Comment on above: Order Comment: 111 Result Comment: [place] on[place] Cholesterol Education Program (NCEP) guidelines: <40 mg/dL: Low HDL-cholesterol (major risk factor for CHD) >= 60 mg/dL: High HDL-cholesterol (negative risk factor for CHD) HDL-cholesterol is affected by a number of factors, e.g. smoking, exercise, hormones, sex and age. Performed By: #### L 501.9520, L506.0250, L502.0250, L501.5200, L3300.9910, L500.4050, L7400.3000, L503.0105, L503.6150, L503.6550, L503.6075, L100.0100, L506.0400 #### [facility] [address] [place], [address] Cholesterol in LDL [Mass/Vol] 37 mg/dL Normal [facility] Comment on above: Order Comment: 111 Result Comment: Bord jcdgwt=246-907 mg/dL Higher Ihze=910 mg/dL or greater Performed By: #### L 501.9520, L506.0250, L502.0250, L501.5200, L3300.9910, L500.4050, L7400.3000, L503.0105, L503.6150, L503.6550, L503.6075, L100.0100, L506.0400 #### [facility] [address] [place], [address] Cholesterol in VLDL [Mass/Vol] 51 mg/dL High 5-40 [facility] Comment on above: Order Comment: 111 Performed By: #### L 501.9520, L506.0250, L502.0250, L501.5200, L3300.9910, L500.4050, L7400.3000, L503.0105, L503.6150, L503.6550, L503.6075, L100.0100, L506.0400 #### [facility] [address] [place], [place], [id number] Triglyceride [Mass/Vol] 255 mg/dL High [facility] Comment on above: Order Comment: 111 Result Comment: The drugs N-Acetylcysteine and Metamizole may falsely depress this assay. Normal range: <150 mg/dL Borderline High: 150-199 mg/dL High: 200-499 mg/dL Very High: >500 mg/dL Performed By: #### L 501.9520, L506.0250, L502.0250, L501.5200, L3300.9910, L500.4050, L7400.3000, L503.0105, L503.6150, L503.6550, L503.6075, L100.0100, L506.0400 #### [facility] [address] [place], [place], [id number] MCV (mean corpuscular volume ) determinationOrdered By: Sharmila Arteaga on 01-27-2025 MCV (RBC) [Entitic vol] 97.5 fL High 80-94 [facility] Magnesiumon 01-27-2025 Magnesium [Mass/Vol] 1.7 mg/dL Normal 1.5-2.2 [facility] Comment on above: Order Comment: 111 Performed By: #### L 501.9520, L506.0250, L502.0250, L501.5200, L3300.9910, L500.4050, L7400.3000, L503.0105, L503.6150, L503.6550, L503.6075, L100.0100, L506.0400 #### [facility] [address] [place], [address] Magnesium (Unsp spec) [Mass/ Vol]Ordered By: Sharmila Arteaga on 01-27-2025 Magnesium [Mass/Vol] 1.7 mg/dL 1.5-2.2 [facility] Magnesium measurement (mass/ volume)Ordered By: Sharmila Arteaga on 01-27-2025 Magnesium (Unsp spec) [Mass/Vol] 1.7 mg/dL 1.5-2.2 [facility] Mean corpuscular hemoglobin (MCH) determinationOrdered By: Sharmila Arteaga on 01-27-2025 MCH (RBC) [Entitic mass] 33.2 pg High 27.0-32.0 [facility] Mean corpuscular hemoglobin concentration (MCHC) determinationOrdered By: Sharmila Arteaga on 01-27-2025 MCHC (RBC) [Mass/Vol] 34.1 g/dL 32-36 [facility] Mean platelet volume determi nationOrdered By: Sharmila Arteaga on 01-27-2025 Platelet mean volume (Bld) [Entitic vol] 11.5 fL 6.2-12.0 [facility] Platelet countOrdered By: Boom Arteaga on 01-27-2025 Platelets (Bld) [#/Vol] 339 10*3/uL 150-450 [facility] Potassium (Unsp spec) [Mass/ Vol]Ordered By: Sharmila Arteaga on 01-27-2025 Potassium [Moles/Vol] 5.1 mmol/L 3.3-5.1 [facility] Potassium measurement (mass/ volume)Ordered By: Sharmila Arteaga on 01-27-2025 Potassium (Unsp spec) [Mass/Vol] 5.1 mmol/L 3.3-5.1 [facility] RBC Auto (Bld) [#/Vol]Ordere d By: Sharmila Arteaga on 01-27-2025 RBC (Bld) [#/Vol] 3.22 10*6/uL Low 4.6-6.2 [facility] Screening total cholesterol/ high density lipoprotein (HDL) cholesterol ratioOrdered By: Sharmila Arteaga on 01-27-2025 Cholesterol.total/Caren sterol in HDL [Mass ratio] 4.11 {ratio} [facility] Serum creatinine measurement (mass/volume)Ordered By: Sharmila Arteaga on 01-27-2025 Creatinine [Mass/Vol] 2.20 mg/dL High 0.70-1.20 [facility] Serum globulin measurementOr dered By: Sharmila Arteaga on 01-27-2025 Globulin (S) [Mass/Vol] 2.7 g/dL 2.2-4.2 [facility] Serum glucose measurement (m ass/volume)Ordered By: Sharmila Arteaga on 01-27-2025 Glucose [Mass/Vol] 258 mg/dL High 70-99 [facility] Serum or plasma alanine hutson otransferase (ALT) measurementOrdered By: Sharmila Arteaga on 01-27-2025 ALT [Catalytic activity/Vol] 17 U/L <47 [facility] Serum or plasma albumin quynh urement (mass/volume)Ordered By: Sharmila Arteaga on 01-27-2025 Albumin [Mass/Vol] 3.5 g/dL 3.4-4.8 [facility] Serum or plasma albumin/glob ulin mass ratioOrdered By: Sharmila Arteaga on 01-27-2025 Albumin/Globulin [Mass ratio] 1.3 {ratio} 0.9-2.4 [facility] Serum or plasma alkaline charito sphatase measurementOrdered By: Sharmila Arteaga on 01-27-2025 ALP [Catalytic activity/Vol] 44 U/L 40-129 [facility] Serum or plasma calcium quynh urement (mass/volume)Ordered By: Sharmila Arteaga on 01-27-2025 Calcium [Mass/Vol] 9.5 mg/dL 7.6-11.0 [facility] Serum or plasma cholesterol in HDL measurement (mass/volume)Ordered By: Sharmila Arteaga on 01-27-2025 Cholesterol in HDL [Mass/Vol] 28 mg/dL Low >40 [facility] Comment on above: National Cholesterol Education Program (NCEP) guidelines:<40 mg/dL: Low HDL-cholesterol (major risk factor for CHD)>= 60 mg/dL: High HDL-cholesterol (negative risk factor for CHD)HDL-cholesterol is affected by a number of factors, e.g. smoking, exercise, hormones, sex and age. Serum or plasma cholesterol measurement (mass/volume)Ordered By: Sharmila Arteaga on 01-27-2025 Cholesterol [Mass/Vol] 116 mg/dL <201 [facility] Comment on above: Cholesterol level, D esirable <200 mg/dLBorderline high cholesterol 200-239 mg/dLHigh cholesterol >=240 mg/dLRecommendations of the NCEP Adult Treatment Panel for the following risk-cutoff thresholds for the [place] population. Serum or plasma urea nitroge n measurement (mass/volume)Ordered By: Sharmila Arteaga on 01-27-2025 Urea nitrogen [Mass/Vol] 41 mg/dL High 4-19 [facility] Sodium levelOrdered By: Angel Arteaga on 01-27-2025 Sodium [Moles/Vol] 135 mmol/L 133-145 [facility] TSH DL <= 0.005 mIU/L QnOrde red By: Sharmila Arteaga on 01-27-2025 Thyroid Stimulating Hormone (TSH) 3.110 uIU/mL 0.300-4.200 [facility] TSH Qn 3.110 uIU/mL 0.300-4.200 [facility] Thyroid Stim Hormone (TSH)on 01-27-2025 TSH 3.110 uIU/mL Normal 0.300-4.200 [facility] Comment on above: Order Comment: 111 Performed By: #### L [id number], L506.0250, L502.0250, L501.5200, L3300.9910, L500.4050, L7400.3000, L503.0105, L503.6150, L503.6550, L503.6075, L100.0100, L506.0400 #### [facility] [address] [place], [place], [id number] Total proteinOrdered By: James Arteaga on 01-27-2025 Protein [Mass/Vol] 6.3 g/dL 5.9-8.4 [facility] Triglycerides measurementOrd ered By: Sharmila Arteaga on 01-27-2025 Triglyceride [Mass/Vol] 255 mg/dL High <199 [facility] Comment on above: The drugs N-Acetylcy steine and Metamizole may falsely depress this assay. Normal range: <150 mg/dLBorderline High: 150-199 mg/dLHigh: 200-499 mg/dLVery High: >500 mg/dL Vitamin B12 ser/plasOrdered By: Sharmila Arteaga on 01-27-2025 Cobalamin (Vitamin B12) [Mass/Vol] 536 pg/mL 180-914 [facility] Vitamin D, 25-hydroxyOrdered By: Sharmila Arteaga on 01-27-2025 Vitamin D 25-Hydroxy 14.8 ng/mL Low 30-100 [facility] Comment on above: Vitamin D StatusDefi ciency: <20 ng/mL (50nmol/L)Insufficiency: 20-30 ng/mL (50-75 nmol/L)Sufficiency: 30-100 ng/mL (75-250 nmol/L)Toxicity: >100 ng/mL (>250 nmol/L) White blood cell (WBC) count Ordered By: Sharmila Arteaga on 01-27-2025 WBC (Bld) [#/Vol] 7.4 10*3/uL 4.4-11.0 [facility] Renal Profileon 12-25-2024 Calcium [Mass/Vol] 10.0 mg/dL Normal 7.6-11.0 [facility] Comment on above: Performed By: #### L 501.9520, L506.0250, L502.0250, L501.5200, L3300.9910, L500.4050, L7400.3000, L503.0105, L503.6150, L503.6550, L503.6075, L100.0100, L506.0400 #### [facility] [address] [place], [address] Chloride [Moles/Vol] 103 mmol/L Normal 98-107 [facility] Comment on above: Performed By: #### L 501.9520, L506.0250, L502.0250, L501.5200, L3300.9910, L500.4050, L7400.3000, L503.0105, L503.6150, L503.6550, L503.6075, L100.0100, L506.0400 #### [facility] [address] [place], [address] CO2 [Moles/Vol] 20.2 mmol/L Low 21.0-32.0 [facility] Comment on above: Performed By: #### L [id number], L506.0250, L502.0250, L501.5200, L3300.9910, L500.4050, L7400.3000, L503.0105, L503.6150, L503.6550, L503.6075, L100.0100, L506.0400 #### [facility] [address] [place], [place], [phone] ([phone]) Potassium [Moles/Vol] 4.8 mmol/L Normal 3.5-5.1 [facility] Comment on above: Performed By: #### L 501.9520, L506.0250, L502.0250, L501.5200, L3300.9910, L500.4050, L7400.3000, L503.0105, L503.6150, L503.6550, L503.6075, L100.0100, L506.0400 #### [facility] [address] [place], [place], [phone] (147) Sodium [Moles/Vol] 140 mmol/L Normal 136-145 [facility] Comment on above: Performed By: #### L [id number], L506.0250, L502.0250, L501.5200, L3300.9910, L500.4050, L7400.3000, L503.0105, L503.6150, L503.6550, L503.6075, L100.0100, L506.0400 #### [facility] [address] [place], [place], [address] BUN/creatinine ratioon 12-24 Urea nitrogen/Creatinine [Mass ratio] 17.5 mg/mg 10-20 [facility] Creatinine Unsp time (U) [Ma ss/Vol]on 12-24-2024 Creatinine (U) [Mass/Vol] 90.10 mg/dL NO RANGE EST. [facility] Creatinine [Moles/Vol]on Creatinine [Mass/Vol] 2.0 mg/dL High 0.8-1.3 [facility] GFR/1.73 sq M.predicted roxann g non-blacks MDRD (S/P/Bld) [Vol rate/Area]on 12-24-2024 Estimated GFR (MDRD) Non-Af Amer 35 Low >60 [facility] Comment on above: mL/min/1.73m2 CKD-EP I Creatinine Equation (2020) Glomerular filtration rate ( GFR) estimation/1.73 sq m using serum, plasma, or whole bon 12-24-2024 GFR/1.73 sq M.predicted among non-blacks MDRD (S/P/Bld) [Vol rate/Area] 35 mL/min/{1.73_m2} Low >60 [facility] Comment on above: mL/min/1.73m2 CKD-EP I Creatinine Equation (2020) Potassium measurementon 12-01 Potassium [Moles/Vol] 4.8 mmol/L 3.5-5.1 [facility] Protein+Creatinine Ratio,Uri neon 12-24-2024 PROT:CRE RATIO 383 mg/g CRE High 0-200 [facility] Comment on above: Performed By: #### L 501.9520, L506.0250, L502.0250, L501.5200, L3300.9910, L500.4050, L7400.3000, L503.0105, L503.6150, L503.6550, L503.6075, L100.0100, L506.0400 #### [facility] [address] [place], [address] Protein (U) [Mass/Vol] 35 mg/dL Normal <=12 [facility] Comment on above: Performed By: #### L 501.9520, L506.0250, L502.0250, L501.5200, L3300.9910, L500.4050, L7400.3000, L503.0105, L503.6150, L503.6550, L503.6075, L100.0100, L506.0400 #### [facility] [address] [place], [address] UR CREAT 90.10 mg/dL Normal NO RANGE EST. [facility] Comment on above: Performed By: #### L 501.9520, L506.0250, L502.0250, L501.5200, L3300.9910, L500.4050, L7400.3000, L503.0105, L503.6150, L503.6550, L503.6075, L100.0100, L506.0400 #### [facility] [address] [facility] [place], [place], [id number] (792) Protein/Creatinine (U) [Mass ratio]on 12-24-2024 Urine Protein/Creatinine Ratio 383 mg/g CRE High 0-200 [facility] Random urine creatinine quynh urement (mass/volume)on 12-24-2024 Creatinine Unsp time (U) [Mass/Vol] 90.10 mg/dL NO RANGE EST. [facility] Serum glucose measurement (m ass/volume)on 12-24-2024 Glucose [Mass/Vol] 158 mg/dL High 70-99 [facility] Serum or plasma albumin quynh urement (mass/volume)on 12-24-2024 Albumin [Mass/Vol] 4.0 g/dL 3.4-4.8 [facility] Serum or plasma calcium quynh urement (mass/volume)on 12-24-2024 Calcium [Mass/Vol] 10.0 mg/dL 7.6-11.0 [facility] Serum or plasma carbon dioxi de measurement (moles/volume)on 12-24-2024 CO2 [Moles/Vol] 20.2 mmol/L Low 21.0-32.0 [facility] Serum or plasma chloride oanh surement (moles/volume)on 12-24-2024 Chloride [Moles/Vol] 103 mmol/L 98-107 [facility] Serum or plasma creatinine m easurement (moles/volume)on 12-24-2024 Creatinine [Moles/Vol] 2.0 mg/dL High 0.8-1.3 [facility] Serum or plasma urea nitroge n measurement (mass/volume)on 12-24-2024 Urea nitrogen [Mass/Vol] 35 mg/dL High 4-19 [facility] Serum phosphorus measurement on 12-24-2024 Phosphorus Level 3.3 mg/dL 2.7-4.5 [facility] Sodium levelon 12-24-2024 Sodium [Moles/Vol] 140 mmol/L 136-145 [facility] Urine protein measurement (m ass/volume)on 12-24-2024 Protein (U) [Mass/Vol] 35 mg/dL <=12 [facility] Urine protein/creatinine mas s ratioon 12-24-2024 Protein/Creatinine (U) [Mass ratio] 383 mg/g CRE High 0-200 [facility] Methylmalonic Acid [place] METHYLMAL ACID 295 nmol/L Normal 0-378 [facility] Comment on above: Order Comment: Test( s) 516354-Kywivannzabyo Acid, Serumwas developed and its performance characteristicsdetermined by [facility]. It has not been cleared or approvedby the Food and Drug Administration. Result Comment: Perf ormed at: - [facility] [id number] Threader Operator: Dilcia Sloan MD, Phone: [phone] Performed By: #### L 501.9520, L506.0250, L502.0250, L501.5200, L3300.9910, L500.4050, L7400.3000, L503.0105, L503.6150, L503.6550, L503.6075, L100.0100, L506.0400 #### [facility] [address] [place], [place], [address] Zinc, WHOLE BLOODon 12-05-19 25 Zinc Whole Bld 632 ug/dL Normal 440-860 [facility] Comment on above: Order Comment: Test( s) 640486-Zjpo, Whole Bloodwas developed and its performance characteristicsdetermined by [facility]. It has not been cleared or approvedby the Food and Drug Administration. Result Comment: Perf ormed at: BN - [facility] [id number] Threader Operator: Dilcia Sloan MD, Phone: [phone] Performed By: #### L 501.9520, L506.0250, L502.0250, L501.5200, L3300.9910, L500.4050, L7400.3000, L503.0105, L503.6150, L503.6550, L503.6075, L100.0100, L506.0400 #### [facility] [address] [place], [place], [address] L3410.9998on 12-04-2024 [facility]. COMMENT Normal . [facility] Comment on above: Order Comment: [id number] 3 HGB A1C Result Comment: Test Ordered: [id number] Hemoglobin A1c Hemoglobin A1c 7.1 [H ] % Reference Range: 4.8-5.6 Prediabetes: 5.7 - 6.4 Diabetes: >6.4 Glycemic control for adults with diabetes: <7.0 Performed at: - [facility] [id number] Threader Operator: Greg Preciado PhD, Phone: [phone] Performed By: #### L 3410.9998 #### [facility] [address] [place], [place], [id number] Absolute neutrophil countOrd ered By: PHYLLIS MAE on 12-02-2024 Neutrophils (Bld) [#/Vol] 3.9 10*3/uL 2.0-7.7 [facility] Albumin to globulin ratioOrd ered By: PHYLLIS YEFRIBELTRAN on 12-02-2024 Albumin/Globulin [Mass ratio] 0.9 {ratio} 0.9-2.4 [facility] Basophil percentageOrdered B y: PHYLLISMAX MAE on 12-02-2024 Basophils/100 WBC (Bld) 0.7 % 0-1 [facility] Bilirubin, totalOrdered By: PHYLLISMAX MAE on 12-02-2024 Bilirubin [Mass/Vol] 0.40 mg/dL 0.20-1.00 [facility] Comment on above: For patients on eltr ombopag therapy, use of Dimension [place] TBIL is not recommended. Blood urea nitrogen (BUN)/cr eatinine ratioOrdered By: PHYLLISMAX MAE on 12-02-2024 Urea nitrogen/Creatinine [Mass ratio] 13.0 mg/mg 10-20 [facility] CBC W/Diff, Automatedon 02 Absolute Lymph 2.44 X10 3/uL Normal 0.83-4.51 [facility] Comment on above: Performed By: #### L 501.9520, L506.0250, L502.0250, L501.5200, L3300.9910, L500.4050, L7400.3000, L503.0105, L503.6150, L503.6550, L503.6075, L100.0100, L506.0400 #### [facility] [address] [place], [place], [id number] Absolute Neut 3.9 X10 3/uL Normal 2.0-7.7 [facility] Comment on above: Performed By: #### L 501.9520, L506.0250, L502.0250, L501.5200, L3300.9910, L500.4050, L7400.3000, L503.0105, L503.6150, L503.6550, L503.6075, L100.0100, L506.0400 #### [facility] [address] [place], [address] Basophils/100 WBC (Bld) 0.7 % Normal 0-1 [facility] Comment on above: Performed By: #### L 501.9520, L506.0250, L502.0250, L501.5200, L3300.9910, L500.4050, L7400.3000, L503.0105, L503.6150, L503.6550, L503.6075, L100.0100, L506.0400 #### [facility] [address] [place], [address] Eosinophils/100 WBC (Bld) 4.1 % Normal 0-5 [facility] Comment on above: Performed By: #### L 501.9520, L506.0250, L502.0250, L501.5200, L3300.9910, L500.4050, L7400.3000, L503.0105, L503.6150, L503.6550, L503.6075, L100.0100, L506.0400 #### [facility] [address] [place], [place], [phone] (281) Erythrocyte distribution width (RBC) [Ratio] 13.0 % Normal 11.6-14.6 [facility] Comment on above: Performed By: #### L 501.9520, L506.0250, L502.0250, L501.5200, L3300.9910, L500.4050, L7400.3000, L503.0105, L503.6150, L503.6550, L503.6075, L100.0100, L506.0400 #### [facility] [address] [place], [place], [phone] (705) Hematocrit (Bld) [Volume fraction] 35.9 % Low 40-54 [facility] Comment on above: Performed By: #### L 501.9520, L506.0250, L502.0250, L501.5200, L3300.9910, L500.4050, L7400.3000, L503.0105, L503.6150, L503.6550, L503.6075, L100.0100, L506.0400 #### [facility] [address] [facility] [place], [address] Hemoglobin (Bld) [Mass/Vol] 12.0 g/dL Low 13.0-16.5 [facility] Comment on above: Performed By: #### L 501.9520, L506.0250, L502.0250, L501.5200, L3300.9910, L500.4050, L7400.3000, L503.0105, L503.6150, L503.6550, L503.6075, L100.0100, L506.0400 #### [facility] [address] [facility] [place], [address] IG% 0.600 Normal 0.0-0.9 [facility] Comment on above: Result Comment: IG% - Immature Granulocytes (promyelocytes, myelocytes and metamyelocytes) > 1% indicates that a LEFT SHIFT is Present. Performed By: #### L 501.9520, L506.0250, L502.0250, L501.5200, L3300.9910, L500.4050, L7400.3000, L503.0105, L503.6150, L503.6550, L503.6075, L100.0100, L506.0400 #### [facility] [address] [place], [address] Lymphocytes/100 WBC (Bld) 33.7 % Normal 19-41 [facility] Comment on above: Performed By: #### L 501.9520, L506.0250, L502.0250, L501.5200, L3300.9910, L500.4050, L7400.3000, L503.0105, L503.6150, L503.6550, L503.6075, L100.0100, L506.0400 #### [facility] [address] [facility] [place], [address] MCH (RBC) [Entitic mass] 33.3 pg High 27.0-32.0 [facility] Comment on above: Performed By: #### L 501.9520, L506.0250, L502.0250, L501.5200, L3300.9910, L500.4050, L7400.3000, L503.0105, L503.6150, L503.6550, L503.6075, L100.0100, L506.0400 #### [facility] [address] [facility] [place], [address] MCHC (RBC) [Mass/Vol] 33.4 g/dL Normal 32-36 [facility] Comment on above: Performed By: #### L 501.9520, L506.0250, L502.0250, L501.5200, L3300.9910, L500.4050, L7400.3000, L503.0105, L503.6150, L503.6550, L503.6075, L100.0100, L506.0400 #### [facility] [address] [facility] [place], [address] MCV (RBC) [Entitic vol] 99.7 fL High 80-94 [facility] Comment on above: Performed By: #### L 501.9520, L506.0250, L502.0250, L501.5200, L3300.9910, L500.4050, L7400.3000, L503.0105, L503.6150, L503.6550, L503.6075, L100.0100, L506.0400 #### [facility] [address] [facility] [place], [address] Monocytes/100 WBC (Bld) 7.6 % Normal 0-10 [facility] Comment on above: Performed By: #### L 501.9520, L506.0250, L502.0250, L501.5200, L3300.9910, L500.4050, L7400.3000, L503.0105, L503.6150, L503.6550, L503.6075, L100.0100, L506.0400 #### [facility] [address] [place], [address] Neutrophils/100 WBC (Bld) 53.3 % Normal 47-70 [facility] Comment on above: Performed By: #### L 501.9520, L506.0250, L502.0250, L501.5200, L3300.9910, L500.4050, L7400.3000, L503.0105, L503.6150, L503.6550, L503.6075, L100.0100, L506.0400 #### [facility] [address] [facility] [place], [place], [phone] (712) Nucleated RBC (Bld) [#/Vol] 0 10*3/uL Normal 0-5 [facility] Comment on above: Performed By: #### L 501.9520, L506.0250, L502.0250, L501.5200, L3300.9910, L500.4050, L7400.3000, L503.0105, L503.6150, L503.6550, L503.6075, L100.0100, L506.0400 #### [facility] [address] [place], [address] Platelet mean volume (Bld) [Entitic vol] 11.4 fL Normal 6.2-12.0 [facility] Comment on above: Performed By: #### L 501.9520, L506.0250, L502.0250, L501.5200, L3300.9910, L500.4050, L7400.3000, L503.0105, L503.6150, L503.6550, L503.6075, L100.0100, L506.0400 #### [facility] [address] [facility] [place], [address] Platelets (Bld) [#/Vol] 277 10*3/uL Normal 150-450 [facility] Comment on above: Performed By: #### L 501.9520, L506.0250, L502.0250, L501.5200, L3300.9910, L500.4050, L7400.3000, L503.0105, L503.6150, L503.6550, L503.6075, L100.0100, L506.0400 #### [facility] [address] [place], [address] RBC (Bld) [#/Vol] 3.60 10*6/uL Low 4.6-6.2 [facility] Comment on above: Performed By: #### L 501.9520, L506.0250, L502.0250, L501.5200, L3300.9910, L500.4050, L7400.3000, L503.0105, L503.6150, L503.6550, L503.6075, L100.0100, L506.0400 #### [facility] [address] [facility] [place], [address] RDW SD 47.8 fl High 35.1-43.9 [facility] Comment on above: Performed By: #### L 501.9520, L506.0250, L502.0250, L501.5200, L3300.9910, L500.4050, L7400.3000, L503.0105, L503.6150, L503.6550, L503.6075, L100.0100, L506.0400 #### [facility] [address] [facility] [place], [address] WBC (Bld) [#/Vol] 7.3 10*3/uL Normal 4.4-11.0 [facility] Comment on above: Performed By: #### L 501.9520, L506.0250, L502.0250, L501.5200, L3300.9910, L500.4050, L7400.3000, L503.0105, L503.6150, L503.6550, L503.6075, L100.0100, L506.0400 #### [facility] [address] [facility] [place], [place], [id number] Carbon dioxide measurementOr dered By: PHYLLIS MAE on 12-02-2024 CO2 [Moles/Vol] 25.0 mmol/L 21.0-32.0 [facility] Chloride measurementOrdered By: PHYLLIS MAE on 12-02-2024 Chloride [Moles/Vol] 107 mmol/L 98-107 [facility] Comprehensive Metabolic Prof ilon 12-02-2024 Albumin [Mass/Vol] 3.6 g/dL Normal 3.2-5.0 [facility] Comment on above: Performed By: #### L 501.9520, L506.0250, L502.0250, L501.5200, L3300.9910, L500.4050, L7400.3000, L503.0105, L503.6150, L503.6550, L503.6075, L100.0100, L506.0400 #### [facility] [address] [place], [place], [id number] Albumin/Globulin [Mass ratio] 0.9 {ratio} Normal 0.9-2.4 [facility] Comment on above: Performed By: #### L 501.9520, L506.0250, L502.0250, L501.5200, L3300.9910, L500.4050, L7400.3000, L503.0105, L503.6150, L503.6550, L503.6075, L100.0100, L506.0400 #### [facility] [address] [place], [place], [phone] ALK P 42 U/L Low 45-117 [facility] Comment on above: Performed By: #### L 501.9520, L506.0250, L502.0250, L501.5200, L3300.9910, L500.4050, L7400.3000, L503.0105, L503.6150, L503.6550, L503.6075, L100.0100, L506.0400 #### [facility] [address] [place], [place], [id number] ALT [Catalytic activity/Vol] 31 U/L Normal 16-61 [facility] Comment on above: Performed By: #### L 501.9520, L506.0250, L502.0250, L501.5200, L3300.9910, L500.4050, L7400.3000, L503.0105, L503.6150, L503.6550, L503.6075, L100.0100, L506.0400 #### [facility] [address] [place], [place], [id number] AST [Catalytic activity/Vol] 33 U/L Normal 15-37 [facility] Comment on above: Performed By: #### L 501.9520, L506.0250, L502.0250, L501.5200, L3300.9910, L500.4050, L7400.3000, L503.0105, L503.6150, L503.6550, L503.6075, L100.0100, L506.0400 #### [facility] [address] [place], [place], [phone] Bilirubin [Mass/Vol] 0.40 mg/dL Normal 0.20-1.00 [facility] Comment on above: Result Comment: For patients on eltrombopag therapy, use of Dimension [place] TBIL is not recommended. Performed By: #### L 501.9520, L506.0250, L502.0250, L501.5200, L3300.9910, L500.4050, L7400.3000, L503.0105, L503.6150, L503.6550, L503.6075, L100.0100, L506.0400 #### [facility] [address] [place], [place], [phone] (542) BUN/CRE 13.0 RATIO Normal 10-20 [facility] Comment on above: Performed By: #### L 501.9520, L506.0250, L502.0250, L501.5200, L3300.9910, L500.4050, L7400.3000, L503.0105, L503.6150, L503.6550, L503.6075, L100.0100, L506.0400 #### [facility] [address] [place], [place], [phone] (713) CA,Total 9.4 mg/dL Normal 8.5-10.1 [facility] Comment on above: Performed By: #### L 501.9520, L506.0250, L502.0250, L501.5200, L3300.9910, L500.4050, L7400.3000, L503.0105, L503.6150, L503.6550, L503.6075, L100.0100, L506.0400 #### [facility] [address] [place], [place], [phone] (506) Chloride [Moles/Vol] 107 mmol/L Normal 98-107 [facility] Comment on above: Performed By: #### L 501.9520, L506.0250, L502.0250, L501.5200, L3300.9910, L500.4050, L7400.3000, L503.0105, L503.6150, L503.6550, L503.6075, L100.0100, L506.0400 #### [facility] [address] [place], [place], [phone] (028) CO2 [Moles/Vol] 25.0 mmol/L Normal 21.0-32.0 [facility] Comment on above: Performed By: #### L 501.9520, L506.0250, L502.0250, L501.5200, L3300.9910, L500.4050, L7400.3000, L503.0105, L503.6150, L503.6550, L503.6075, L100.0100, L506.0400 #### [facility] [address] [place], [place], [id number] Creatinine [Mass/Vol] 1.85 mg/dL High 0.70-1.30 [facility] Comment on above: Result Comment: The validity of the calculated GFR GFRAA in patients over 70 years has not been determined. Clinical correlation is essential. Performed By: #### L 501.9520, L506.0250, L502.0250, L501.5200, L3300.9910, L500.4050, L7400.3000, L503.0105, L503.6150, L503.6550, L503.6075, L100.0100, L506.0400 #### [facility] [address] [place], [address] EST GFR - AA 46 mL/min Low >60 [facility] Comment on above: Result Comment: Afri can Gambian GFR Calc Performed By: #### L 501.9520, L506.0250, L502.0250, L501.5200, L3300.9910, L500.4050, L7400.3000, L503.0105, L503.6150, L503.6550, L503.6075, L100.0100, L506.0400 #### [facility] [address] [place], [place], [id number] GAP 7 Normal 5-15 [facility] Comment on above: Performed By: #### L 501.9520, L506.0250, L502.0250, L501.5200, L3300.9910, L500.4050, L7400.3000, L503.0105, L503.6150, L503.6550, L503.6075, L100.0100, L506.0400 #### [facility] [address] [place], [address] GFR/1.73 sq M.predicted among non-blacks MDRD (S/P/Bld) [Vol rate/Area] 38 mL/min/{1.73_m2} Low >60 [facility] Comment on above: Result Comment: Non- GFR Calc Performed By: #### L 501.9520, L506.0250, L502.0250, L501.5200, L3300.9910, L500.4050, L7400.3000, L503.0105, L503.6150, L503.6550, L503.6075, L100.0100, L506.0400 #### [facility] [address] [place], [address] Globulin (S) [Mass/Vol] 3.8 g/dL Normal 2.2-4.2 [facility] Comment on above: Performed By: #### L 501.9520, L506.0250, L502.0250, L501.5200, L3300.9910, L500.4050, L7400.3000, L503.0105, L503.6150, L503.6550, L503.6075, L100.0100, L506.0400 #### [facility] [address] [place], [place], [id number] Glucose [Mass/Vol] 156 mg/dL High 74-106 [facility] Comment on above: Result Comment: Fast ing Glucose result greater than or equal to 126 mg/dL suggests DIABETES MELLITUS per A.D.A. criteria. Performed By: #### L 501.9520, L506.0250, L502.0250, L501.5200, L3300.9910, L500.4050, L7400.3000, L503.0105, L503.6150, L503.6550, L503.6075, L100.0100, L506.0400 #### [facility] [address] [place], [address] Potassium [Moles/Vol] 4.8 mmol/L Normal 3.5-5.1 [facility] Comment on above: Performed By: #### L 501.9520, L506.0250, L502.0250, L501.5200, L3300.9910, L500.4050, L7400.3000, L503.0105, L503.6150, L503.6550, L503.6075, L100.0100, L506.0400 #### [facility] [address] [place], [address] Sodium [Moles/Vol] 139 mmol/L Normal 136-145 [facility] Comment on above: Performed By: #### L 501.9520, L506.0250, L502.0250, L501.5200, L3300.9910, L500.4050, L7400.3000, L503.0105, L503.6150, L503.6550, L503.6075, L100.0100, L506.0400 #### [facility] [address] [place], [address] T PROT 7.4 g/dL Normal 6.4-8.2 [facility] Comment on above: Performed By: #### L 501.9520, L506.0250, L502.0250, L501.5200, L3300.9910, L500.4050, L7400.3000, L503.0105, L503.6150, L503.6550, L503.6075, L100.0100, L506.0400 #### [facility] [address] [place], [address] Urea nitrogen [Mass/Vol] 24 mg/dL High 7-18 [facility] Comment on above: Performed By: #### L 501.9520, L506.0250, L502.0250, L501.5200, L3300.9910, L500.4050, L7400.3000, L503.0105, L503.6150, L503.6550, L503.6075, L100.0100, L506.0400 #### [facility] [address] [facility] [facility] [place], [address] Direct serum free thyroxine (FT4) measurementOrdered By: PHYLLIS MAE on 12-02-2024 Free T4 [Mass/Vol] 0.94 ng/dL 0.76-1.46 [facility] Eosinophil percentageOrdered By: PHYLLIS MAE on 12-02-2024 Eosinophils/100 WBC (Bld) 4.1 % 0-5 [facility] Erythrocyte distribution wid th ratioOrdered By: PHYLLISAllie MAE on 12-02-2024 Erythrocyte distribution width (RBC) [Ratio] 13.0 % 11.6-14.6 [facility] Erythrocyte distribution wid th standard deviationOrdered By: PHYLLISAllie MAE on 12-02-2024 Erythrocyte distribution width (RBC) [Entitic vol] 47.8 fL High 35.1-43.9 [facility] Estimated glomerular filtrat ion rate (GFR) AmericanOrdered By: PHYLLIS MAE on 12-02-2024 Estimated GFR (MDRD) Amer 46 mL/min Low >60 [facility] Comment on above: GFR Calc Ferritinon 12-02-2024 Ferritin [Mass/Vol] 190 ng/mL Normal 26-388 [facility] Comment on above: Performed By: #### L [id number], L506.0250, L502.0250, L501.5200, [id number], L500.4050, [id number], L503.0105, L503.6150, L503.6550, L503.6075, L100.0100, L506.0400 #### [facility] [address] [place], [address] Ferritin measurementOrdered By: PHYLLIS MAE on 12-02-2024 Ferritin [Mass/Vol] 190 ng/mL 26-388 [facility] Folates, (Folic Acid)on FOLATES 72.50 ng/mL High 3.1-55.4 [facility] Comment on above: Order Comment: N Performed By: #### L 501.9520, L506.0250, L502.0250, L501.5200, L3300.9910, L500.4050, L7400.3000, L503.0105, L503.6150, L503.6550, L503.6075, L100.0100, L506.0400 #### [facility] [address] [place], [address] Folic acid measurementOrdere d By: PHYLLIS MAE on 12-02-2024 Folate 72.50 ng/mL High 3.1-55.4 [facility] Glomerular filtration rate ( GFR) estimationOrdered By: PHYLLIS MAE on 12-02-2024 Estimated GFR (MDRD) Non-Af Amer 38 mL/min Low >60 [facility] Comment on above: Non- GFR Calc Glucose measurementOrdered B y: PHYLLIS MAE on 12-02-2024 Glucose [Mass/Vol] 156 mg/dL High 74-106 [facility] Comment on above: Fasting Glucose resu lt greater than or equal to 126 mg/dL suggests DIABETES MELLITUS per A.D.A. criteria. Hematocrit Auto (Bld) [Volum e fraction]Ordered By: PHYLLIS MAE on 12-02-2024 Hematocrit (Bld) [Volume fraction] 35.9 % Low 40-54 [facility] Hemoglobin measurementOrdere d By: PHYLLIS MAE on 12-02-2024 Hemoglobin (Bld) [Mass/Vol] 12.0 g/dL Low 13.0-16.5 [facility] Immature granulocytes/100 WB C Auto (Bld)Ordered By: PHYLLIS MAE on 12-02-2024 Immature granulocytes/100 WBC (Bld) 0.600 % 0.0-0.9 [facility] Comment on above: IG% - Immature Granu locytes (promyelocytes, myelocytes and metamyelocytes) > 1% indicates that a LEFT SHIFT is Present. Ironon 12-02-2024 Iron [Mass/Vol] 97 ug/dL Normal 65-175 [facility] Comment on above: Performed By: #### L 501.9520, L506.0250, L502.0250, L501.5200, L3300.9910, L500.4050, L7400.3000, L503.0105, L503.6150, L503.6550, L503.6075, L100.0100, L506.0400 #### [facility] [address] [place], [address] Iron (Unsp spec) [Mass/Mass] Ordered By: PHYLLIS MAE on 12-02-2024 Iron [Mass/Vol] 97 ug/dL 65-175 [facility] Iron Binding Capacity,Totalo n 12-02-2024 TIBC 377 ug/dL Normal 250-450 [facility] Comment on above: Performed By: #### L 501.9520, L506.0250, L502.0250, L501.5200, L3300.9910, L500.4050, L7400.3000, L503.0105, L503.6150, L503.6550, L503.6075, L100.0100, L506.0400 #### [facility] [address] [facility] [facility] [place], [address] Laboratory - Chemistry and C hemistry - challengeOrdered By: PHYLLIS MAE on 12-02-2024 AST [Catalytic activity/Vol] 33 U/L 15-37 [facility] Lymphocytes Auto (Unsp spec) [#/Vol]Ordered By: PHYLLIS MAE on 12-02-2024 Lymphocytes (Bld) [#/Vol] 2.44 10*3/uL 0.83-4.51 [facility] Lymphocytes/100 WBC Auto (Un sp spec)Ordered By: PHYLLIS MAE on 12-02-2024 Lymphocytes/100 WBC (Bld) 33.7 % 19-41 [facility] MCV (mean corpuscular volume ) determinationOrdered By: PHYLLIS MAE on 12-02-2024 MCV (RBC) [Entitic vol] 99.7 fL High 80-94 [facility] Magnesiumon 12-02-2024 Magnesium [Mass/Vol] 2.1 mg/dL Normal 1.6-2.6 [facility] Comment on above: Performed By: #### L 501.9520, L506.0250, L502.0250, L501.5200, L3300.9910, L500.4050, L7400.3000, L503.0105, L503.6150, L503.6550, L503.6075, L100.0100, L506.0400 #### [facility] [address] [place] [address], [address] Magnesium measurementOrdered By: PHYLLIS MAE on 12-02-2024 Magnesium [Mass/Vol] 2.1 mg/dL 1.6-2.6 [facility] Mean corpuscular hemoglobin (MCH) determinationOrdered By: PHYLLIS MAE on 12-02-2024 MCH (RBC) [Entitic mass] 33.3 pg High 27.0-32.0 [facility] Mean corpuscular hemoglobin concentration (MCHC) determinationOrdered By: PHYLLIS MAE on 12-02-2024 MCHC (RBC) [Mass/Vol] 33.4 g/dL 32-36 [facility] Mean platelet volume determi nationOrdered By: PHYLLIS MAE on 12-02-2024 Platelet mean volume (Bld) [Entitic vol] 11.4 fL 6.2-12.0 [facility] Methylmalonate [Moles/Vol]Or dered By: PHYLLIS MAE on 12-02-2024 Methylmalonic Acid 295 nmol/L 0-378 [facility] Comment on above: Performed at: [address] [id number] Director: Dilcia Sloan MD, Phone: [phone] Microalb:Creat Ratio,Random URon 12-02-2024 Creatinine [Mass/Vol] 114.00 mg/dL Normal NO RAN GE EST. [facility] Comment on above: Performed By: #### L 501.9520, L506.0250, L502.0250, L501.5200, L3300.9910, L500.4050, L7400.3000, L503.0105, L503.6150, L503.6550, L503.6075, L100.0100, L506.0400 #### [facility] [address] [facility]. [place], [place], [id number] MALB:CRE 491.2 mg/g CRE High <30 mg/g CRE [facility] Comment on above: Performed By: #### L 501.9520, L506.0250, L502.0250, L501.5200, L3300.9910, L500.4050, L7400.3000, L503.0105, L503.6150, L503.6550, L503.6075, L100.0100, L506.0400 #### [facility] [address] [facility] [place], [address] MICROALBUMIN,UR 560.0 mg/L Normal NO RANGE EST. [facility] Comment on above: Performed By: #### L 501.9520, L506.0250, L502.0250, L501.5200, L3300.9910, L500.4050, L7400.3000, L503.0105, L503.6150, L503.6550, L503.6075, L100.0100, L506.0400 #### [facility] [address] [facility]. [place], [place], [id number] Monocyte percentageOrdered B y: PHYLLIS MAE on 12-02-2024 Monocytes/100 WBC (Bld) 7.6 % 0-10 [facility] Neutrophil percentageOrdered By: PHYLLIS MAE on 12-02-2024 Neutrophils/100 WBC (Bld) 53.3 % 47-70 [facility] Nucleated red blood cell per centageOrdered By: PHYLLIS MAE on 12-02-2024 Nucleated RBC/100 WBC (Bld) [Ratio] 0 % 0-5 [facility] Platelet countOrdered By: HAYLEY MAE on 12-02-2024 Platelets (Bld) [#/Vol] 277 10*3/uL 150-450 [facility] Potassium measurementOrdered By: PHYLLIS MAE on 12-02-2024 Potassium [Moles/Vol] 4.8 mmol/L 3.5-5.1 [facility] RBC Auto (Bld) [#/Vol]Ordere d By: PHYLLIS MAE on 12-02-2024 RBC (Bld) [#/Vol] 3.60 10*6/uL Low 4.6-6.2 [facility] Random urine microalbumin me asurementOrdered By: PHYLLIS MAE on 12-02-2024 Urine Random Microalbumin 560.0 mg/L NO RANGE EST. [facility] Serum anion gap measurementO rdered By: PHYLLIS MAE on 12-02-2024 Anion gap [Moles/Vol] 7 mmol/L 5-15 [facility] Serum globulin measurementOr dered By: PHYLLIS MAE on 12-02-2024 Globulin (S) [Mass/Vol] 3.8 g/dL 2.2-4.2 [facility] Serum or plasma alanine hutson otransferase (ALT) measurementOrdered By: PHYLLIS MAE on 12-02-2024 ALT [Catalytic activity/Vol] 31 U/L 16-61 [facility] Serum or plasma albumin quynh urement (mass/volume)Ordered By: PHYLLIS MAE on 12-02-2024 Albumin [Mass/Vol] 3.6 g/dL 3.2-5.0 [facility] Serum or plasma alkaline charito sphatase measurementOrdered By: PHYLLIS MAE on 12-02-2024 ALP [Catalytic activity/Vol] 42 U/L Low 45-117 [facility] Serum or plasma calcium quynh urement (mass/volume)Ordered By: PHYLLIS MAE on 12-02-2024 Calcium [Mass/Vol] 9.4 mg/dL 8.5-10.1 [facility] Serum or plasma creatinine m easurement (mass/volume)Ordered By: PHYLLIS MAE on 12-02-2024 Creatinine [Mass/Vol] 1.85 mg/dL High 0.70-1.30 [facility] Comment on above: The validity of the calculated GFR & GFRAA in patients over 70 years has not been determined. Clinical correlation is essential. Serum or plasma urea nitroge n measurement (mass/volume)Ordered By: PHYLLIS MAE on 12-02-2024 Urea nitrogen [Mass/Vol] 24 mg/dL High 7-18 [facility] Sodium levelOrdered By: NEDA MAE on 12-02-2024 Sodium [Moles/Vol] 139 mmol/L 136-145 [facility] T4 Free Directon 12-02-2024 T4 FREE DIRECT 0.94 ng/dL Normal 0.76-1.46 [facility] Comment on above: Order Comment: N Performed By: #### L 501.9520, L506.0250, L502.0250, L501.5200, L3300.9910, L500.4050, L7400.3000, L503.0105, L503.6150, L503.6550, L503.6075, L100.0100, L506.0400 #### [facility] [address] [place] [address]. [place], [address] TIBCOrdered By: PHYLLIS KHANNA on 12-02-2024 Total Iron Binding Capacity 377 ug/dL 250-450 [facility] TSH QnOrdered By: PHYLLIS GONG on 12-02-2024 Thyroid Stimulating Hormone (TSH) 2.380 uIU/mL 0.358-3.740 [facility] Thyroid Stim Hormone (TSH)on 12-02-2024 TSH 2.380 uIU/mL Normal 0.358-3.740 [facility] Comment on above: Performed By: #### L 501.9520, L506.0250, L502.0250, L501.5200, L3300.9910, L500.4050, L7400.3000, L503.0105, L503.6150, L503.6550, L503.6075, L100.0100, L506.0400 #### [facility] [address] [place], [address] Total proteinOrdered By: JUAREZ MAE on 12-02-2024 Protein [Mass/Vol] 7.4 g/dL 6.4-8.2 [facility] Urine albumin/creatinine rat io for detection of microalbuminuriaOrdered By: PHYLLIS MAE on 12-02-2024 Urine Microalbumin/Creatinine Ratio 491.2 mg/g CRE High <30 [facility] Urine creatinine measurement (mass/volume)Ordered By: PHYLLIS MAE on 12-02-2024 Creatinine (U) [Mass/Vol] 114.00 mg/dL NO RANGE EST. [facility] Vitamin B12on 12-02-2024 Cobalamin (Vitamin B12) [Mass/Vol] 440 pg/mL Normal 211- [facility] Comment on above: Performed By: #### L 501.9520, L506.0250, L502.0250, L501.5200, L3300.9910, L500.4050, L7400.3000, L503.0105, L503.6150, L503.6550, L503.6075, L100.0100, L506.0400 #### [facility] [address] [facility]. [place], [place], [id number] Vitamin B12 measurementOrder ed By: PHYLLIS MAE on 12-02-2024 Cobalamin (Vitamin B12) [Mass/Vol] 440 pg/mL - [facility] White blood cell (WBC) count Ordered By: PHYLLIS MAE on 12-02-2024 WBC (Bld) [#/Vol] 7.3 10*3/uL 4.4-11.0 [facility] Zinc WBOrdered By: PHYLLIS PAGE on 12-02-2024 Whole Blood Zinc 632 ug/dL 440-860 [facility] Comment on above: Performed at: [address] [id number] Director: Dilcia Sloan MD, Phone: [phone] NM MYOCARDIAL PERFUSION MULT I SPECTon 09-16-2024 NM MYOCARDIAL PERFUSION MULTI SPECT Patient Info Name: STEVO GERMAIN Age: 74 years : 1950 Gender: Male Ht: 168 cm Wt: 64 kg BSA: 1.74 m2 HR: 56 bpm BP: 155 / 70 mmHg Heart Rhythm: Bradycardia Exam Date: 09/16/2024 9:00 AM Patient Status: Outpatient Customer Sales Advisor: Joelle Holbrook RT(N), LILLIE EISENBERG, Saurabh Holbrook RT(N), NCT Exam Type: NM MYOCARDIAL PERFUSION MULTI SPECT Study Info Indications - chest pain; history of CVA Nuclear Physician: Clarita Galvez MD Referring Physician: JAIDEN; [id number] Primary Nurse: Felicitas Cline RN Supervising Stress [...] right antecubital Administered By: Joelle Holbrook RT(N), FAINA, LILLIE Camera Used: [employer] D-SPECT Radiopharmaceutical: Tc-99m Tetrofosmin Administration Site: IV - right antecubital Administered By: Saurabh Holbrook RT(N), NCT Camera Used: [employer] D-SPECT Image Protocol [...] AM Dic (more content not included)... Normal [facility] Comment on above: Order Comment: Injur y/Trauma or Illness?:Illness/Other How long have you had these symptoms (acute/chronic)?:Unknown Reason for exam?:CP, CVA Type of Exam?:Unknown Additional signs and symptoms?:CP, CVA ECG 12 Leadon 09-09-2024 Atrial Rate [facility] P [place] [facility] P-R Interval [facility] Q-T Interval [facility] Q-T Interval (corrected) [facility] QRS Duration [facility] QTC Calculation (Bezet) [facility] [place] [facility] T [place] [facility] Ventricular Rate [facility] CBC W/Diff, Automatedon 11-0 Absolute Lymph 1.51 X10 3/uL Normal 0.83-4.51 [facility] Comment on above: Performed By: #### L 501.9520, L506.0250, L502.0250, L501.5200, L3300.9910, L500.4050, L7400.3000, L503.0105, L503.6150, L503.6550, L503.6075, L100.0100, L506.0400 #### [facility] [address] [place], [address] Absolute Neut 3.3 X10 3/uL Normal 2.0-7.7 [facility] Comment on above: Performed By: #### L 501.9520, L506.0250, L502.0250, L501.5200, L3300.9910, L500.4050, L7400.3000, L503.0105, L503.6150, L503.6550, L503.6075, L100.0100, L506.0400 #### [facility] [address] [place], [address] Basophils/100 WBC (Bld) 1.4 % High 0-1 [facility] Comment on above: Performed By: #### L 501.9520, L506.0250, L502.0250, L501.5200, L3300.9910, L500.4050, L7400.3000, L503.0105, L503.6150, L503.6550, L503.6075, L100.0100, L506.0400 #### [facility] [address] [place], [place], [phone] (596) Eosinophils/100 WBC (Bld) 3.9 % Normal 0-5 [facility] Comment on above: Performed By: #### L 501.9520, L506.0250, L502.0250, L501.5200, L3300.9910, L500.4050, L7400.3000, L503.0105, L503.6150, L503.6550, L503.6075, L100.0100, L506.0400 #### [facility] [address] [place], [address] Erythrocyte distribution width (RBC) [Ratio] 12.1 % Normal 11.6-14.6 [facility] Comment on above: Performed By: #### L 501.9520, L506.0250, L502.0250, L501.5200, L3300.9910, L500.4050, L7400.3000, L503.0105, L503.6150, L503.6550, L503.6075, L100.0100, L506.0400 #### [facility] [address] [place], [address] Hematocrit (Bld) [Volume fraction] 35.0 % Low 40-54 [facility] Comment on above: Performed By: #### L 501.9520, L506.0250, L502.0250, L501.5200, L3300.9910, L500.4050, L7400.3000, L503.0105, L503.6150, L503.6550, L503.6075, L100.0100, L506.0400 #### [facility] [address] [place], [address] (540) Hemoglobin (Bld) [Mass/Vol] 12.1 g/dL Low 13.0-16.5 [facility] Comment on above: Performed By: #### L 501.9520, L506.0250, L502.0250, L501.5200, L3300.9910, L500.4050, L7400.3000, L503.0105, L503.6150, L503.6550, L503.6075, L100.0100, L506.0400 #### [facility] [address] [place], [address] IG% 0.500 Normal 0.0-0.9 [facility] Comment on above: Result Comment: IG% - Immature Granulocytes (promyelocytes, myelocytes and metamyelocytes) > 1% indicates that a LEFT SHIFT is Present. Performed By: #### L 501.9520, L506.0250, L502.0250, L501.5200, L3300.9910, L500.4050, L7400.3000, L503.0105, L503.6150, L503.6550, L503.6075, L100.0100, L506.0400 #### [facility] [address] [facility] [place], [address] Lymphocytes/100 WBC (Bld) 27.0 % Normal 19-41 [facility] Comment on above: Performed By: #### L 501.9520, L506.0250, L502.0250, L501.5200, L3300.9910, L500.4050, L7400.3000, L503.0105, L503.6150, L503.6550, L503.6075, L100.0100, L506.0400 #### [facility] [address] [place], [address] MCH (RBC) [Entitic mass] 35.8 pg High 27.0-32.0 [facility] Comment on above: Performed By: #### L 501.9520, L506.0250, L502.0250, L501.5200, L3300.9910, L500.4050, L7400.3000, L503.0105, L503.6150, L503.6550, L503.6075, L100.0100, L506.0400 #### [facility] [address] [place], [address] MCHC (RBC) [Mass/Vol] 34.6 g/dL Normal 32-36 [facility] Comment on above: Performed By: #### L 501.9520, L506.0250, L502.0250, L501.5200, L3300.9910, L500.4050, L7400.3000, L503.0105, L503.6150, L503.6550, L503.6075, L100.0100, L506.0400 #### [facility] [address] [place], [address] MCV (RBC) [Entitic vol] 103.6 fL High 80-94 [facility] Comment on above: Performed By: #### L 501.9520, L506.0250, L502.0250, L501.5200, L3300.9910, L500.4050, L7400.3000, L503.0105, L503.6150, L503.6550, L503.6075, L100.0100, L506.0400 #### [facility] [address] [place], [address] Monocytes/100 WBC (Bld) 8.4 % Normal 0-10 [facility] Comment on above: Performed By: #### L 501.9520, L506.0250, L502.0250, L501.5200, L3300.9910, L500.4050, L7400.3000, L503.0105, L503.6150, L503.6550, L503.6075, L100.0100, L506.0400 #### [facility] [address] [place], [address] Neutrophils/100 WBC (Bld) 58.8 % Normal 47-70 [facility] Comment on above: Performed By: #### L 501.9520, L506.0250, L502.0250, L501.5200, L3300.9910, L500.4050, L7400.3000, L503.0105, L503.6150, L503.6550, L503.6075, L100.0100, L506.0400 #### [facility] [address] [facility] [place], [address] Nucleated RBC (Bld) [#/Vol] 0 10*3/uL Normal 0-5 [facility] Comment on above: Performed By: #### L 501.9520, L506.0250, L502.0250, L501.5200, L3300.9910, L500.4050, L7400.3000, L503.0105, L503.6150, L503.6550, L503.6075, L100.0100, L506.0400 #### [facility] [address] [facility] [place], [address] Platelet mean volume (Bld) [Entitic vol] 12.2 fL High 6.2-12.0 [facility] Comment on above: Performed By: #### L 501.9520, L506.0250, L502.0250, L501.5200, L3300.9910, L500.4050, L7400.3000, L503.0105, L503.6150, L503.6550, L503.6075, L100.0100, L506.0400 #### [facility] [address] [facility] [place], [address] Platelets (Bld) [#/Vol] 220 10*3/uL Normal 150-450 [facility] Comment on above: Performed By: #### L 501.9520, L506.0250, L502.0250, L501.5200, L3300.9910, L500.4050, L7400.3000, L503.0105, L503.6150, L503.6550, L503.6075, L100.0100, L506.0400 #### [facility] [address] [place], [address] RBC (Bld) [#/Vol] 3.38 10*6/uL Low 4.6-6.2 [facility] Comment on above: Performed By: #### L 501.9520, L506.0250, L502.0250, L501.5200, L3300.9910, L500.4050, L7400.3000, L503.0105, L503.6150, L503.6550, L503.6075, L100.0100, L506.0400 #### [facility] [address] [facility] [place], [address] RDW SD 45.8 fl High 35.1-43.9 [facility] Comment on above: Performed By: #### L 501.9520, L506.0250, L502.0250, L501.5200, L3300.9910, L500.4050, L7400.3000, L503.0105, L503.6150, L503.6550, L503.6075, L100.0100, L506.0400 #### [facility] [address] [place], [address] WBC (Bld) [#/Vol] 5.6 10*3/uL Normal 4.4-11.0 [facility] Comment on above: Performed By: #### L 501.9520, L506.0250, L502.0250, L501.5200, L3300.9910, L500.4050, L7400.3000, L503.0105, L503.6150, L503.6550, L503.6075, L100.0100, L506.0400 #### [facility] [address] [place], [address] Comprehensive Metabolic Prof ilon 09-04-2024 Albumin [Mass/Vol] 3.3 g/dL Normal 3.2-5.0 [facility] Comment on above: Performed By: #### L 501.9520, L506.0250, L502.0250, L501.5200, L3300.9910, L500.4050, L7400.3000, L503.0105, L503.6150, L503.6550, L503.6075, L100.0100, L506.0400 #### [facility] [address] [place], [address] Albumin/Globulin [Mass ratio] 1.0 {ratio} Normal 0.9-2.4 [facility] Comment on above: Performed By: #### L 501.9520, L506.0250, L502.0250, L501.5200, L3300.9910, L500.4050, L7400.3000, L503.0105, L503.6150, L503.6550, L503.6075, L100.0100, L506.0400 #### [facility] [address] [place], [address] ALK P 37 U/L Low 45-117 [facility] Comment on above: Performed By: #### L 501.9520, L506.0250, L502.0250, L501.5200, L3300.9910, L500.4050, L7400.3000, L503.0105, L503.6150, L503.6550, L503.6075, L100.0100, L506.0400 #### [facility] [address] [place], [address] ALT [Catalytic activity/Vol] 25 U/L Normal 16-61 [facility] Comment on above: Performed By: #### L 501.9520, L506.0250, L502.0250, L501.5200, L3300.9910, L500.4050, L7400.3000, L503.0105, L503.6150, L503.6550, L503.6075, L100.0100, L506.0400 #### [facility] [address] [place], [place], [phone] (802) AST [Catalytic activity/Vol] 24 U/L Normal 15-37 [facility] Comment on above: Result Comment: Slig ht Hemolysis, Result may be falsely increased. Performed By: #### L 501.9520, L506.0250, L502.0250, L501.5200, L3300.9910, L500.4050, L7400.3000, L503.0105, L503.6150, L503.6550, L503.6075, L100.0100, L506.0400 #### [facility] [address] [place], [place], [id number] Bilirubin [Mass/Vol] 0.40 mg/dL Normal 0.20-1.00 [facility] Comment on above: Result Comment: For patients on eltrombopag therapy, use of Dimension [place] TBIL is not recommended. Performed By: #### L 501.9520, L506.0250, L502.0250, L501.5200, L3300.9910, L500.4050, L7400.3000, L503.0105, L503.6150, L503.6550, L503.6075, L100.0100, L506.0400 #### [facility] [address] [place], [place], [phone] (368) BUN/CRE 11.6 RATIO Normal 10-20 [facility] Comment on above: Performed By: #### L 501.9520, L506.0250, L502.0250, L501.5200, L3300.9910, L500.4050, L7400.3000, L503.0105, L503.6150, L503.6550, L503.6075, L100.0100, L506.0400 #### [facility] [address] [place], [place], [phone] (913) CA,Total 9.0 mg/dL Normal 8.5-10.1 [facility] Comment on above: Performed By: #### L 501.9520, L506.0250, L502.0250, L501.5200, L3300.9910, L500.4050, L7400.3000, L503.0105, L503.6150, L503.6550, L503.6075, L100.0100, L506.0400 #### [facility] [address] [place], [place], [id number] (207) Chloride [Moles/Vol] 103 mmol/L Normal 98-107 [facility] Comment on above: Performed By: #### L 501.9520, L506.0250, L502.0250, L501.5200, L3300.9910, L500.4050, L7400.3000, L503.0105, L503.6150, L503.6550, L503.6075, L100.0100, L506.0400 #### [facility] [address] [place], [address] CO2 [Moles/Vol] 25.0 mmol/L Normal 21.0-32.0 [facility] Comment on above: Performed By: #### L 501.9520, L506.0250, L502.0250, L501.5200, L3300.9910, L500.4050, L7400.3000, L503.0105, L503.6150, L503.6550, L503.6075, L100.0100, L506.0400 #### [facility] [address] [place], [address] Creatinine [Mass/Vol] 1.81 mg/dL High 0.70-1.30 [facility] Comment on above: Result Comment: The validity of the calculated GFR GFRAA in patients over 70 years has not been determined. Clinical correlation is essential. Performed By: #### L 501.9520, L506.0250, L502.0250, L501.5200, L3300.9910, L500.4050, L7400.3000, L503.0105, L503.6150, L503.6550, L503.6075, L100.0100, L506.0400 #### [facility] [address] [place], [place], [id number] EST GFR - AA 47 mL/min Low >60 [facility] Comment on above: Result Comment: Afri can Gambian GFR Calc Performed By: #### L 501.9520, L506.0250, L502.0250, L501.5200, L3300.9910, L500.4050, L7400.3000, L503.0105, L503.6150, L503.6550, L503.6075, L100.0100, L506.0400 #### [facility] [address] [place], [place], [id number] GAP 5 Normal 5-15 [facility] Comment on above: Performed By: #### L 501.9520, L506.0250, L502.0250, L501.5200, L3300.9910, L500.4050, L7400.3000, L503.0105, L503.6150, L503.6550, L503.6075, L100.0100, L506.0400 #### [facility] [address] [place], [address] GFR/1.73 sq M.predicted among non-blacks MDRD (S/P/Bld) [Vol rate/Area] 39 mL/min/{1.73_m2} Low >60 [facility] Comment on above: Result Comment: Non- GFR Calc Performed By: #### L 501.9520, L506.0250, L502.0250, L501.5200, L3300.9910, L500.4050, L7400.3000, L503.0105, L503.6150, L503.6550, L503.6075, L100.0100, L506.0400 #### [facility] [address] [place], [address] Globulin (S) [Mass/Vol] 3.4 g/dL Normal 2.2-4.2 [facility] Comment on above: Performed By: #### L 501.9520, L506.0250, L502.0250, L501.5200, L3300.9910, L500.4050, L7400.3000, L503.0105, L503.6150, L503.6550, L503.6075, L100.0100, L506.0400 #### [facility] [address] [place], [address] Glucose [Mass/Vol] 246 mg/dL High 74-106 [facility] Comment on above: Result Comment: Gluc ose result greater than or equal to 200 mg/dL suggests DIABETES MELLITUS per A.D.A. criteria. Performed By: #### L 501.9520, L506.0250, L502.0250, L501.5200, L3300.9910, L500.4050, L7400.3000, L503.0105, L503.6150, L503.6550, L503.6075, L100.0100, L506.0400 #### [facility] [address] [place], [address] Potassium [Moles/Vol] 4.7 mmol/L Normal 3.5-5.1 [facility] Comment on above: Result Comment: Slig ht Hemolysis, Result may be falsely increased. Performed By: #### L 501.9520, L506.0250, L502.0250, L501.5200, L3300.9910, L500.4050, L7400.3000, L503.0105, L503.6150, L503.6550, L503.6075, L100.0100, L506.0400 #### [facility] [address] [place], [address] Sodium [Moles/Vol] 133 mmol/L Low 136-145 [facility] Comment on above: Performed By: #### L 501.9520, L506.0250, L502.0250, L501.5200, L3300.9910, L500.4050, L7400.3000, L503.0105, L503.6150, L503.6550, L503.6075, L100.0100, L506.0400 #### [facility] [address] [place], [address] T PROT 6.7 g/dL Normal 6.4-8.2 [facility] Comment on above: Performed By: #### L 501.9520, L506.0250, L502.0250, L501.5200, L3300.9910, L500.4050, L7400.3000, L503.0105, L503.6150, L503.6550, L503.6075, L100.0100, L506.0400 #### [facility] [address] [place], [address] Urea nitrogen [Mass/Vol] 21 mg/dL High 7-18 [facility] Comment on above: Performed By: #### L 501.9520, L506.0250, L502.0250, L501.5200, L3300.9910, L500.4050, L7400.3000, L503.0105, L503.6150, L503.6550, L503.6075, L100.0100, L506.0400 #### [facility] [address] [place], [address] Hemoglobin A1con 09-04-2024 HbA1c (Bld) [Mass fraction] 7.5 % High 3.8-5.6 [facility] Comment on above: Result Comment: Norm al < 5.7 % Prediabetic 5.7 - 6.4 % Diabetic >or= 6.5 % Please note range changes. Performed By: #### L 501.9520, L506.0250, L502.0250, L501.5200, L3300.9910, L500.4050, L7400.3000, L503.0105, L503.6150, L503.6550, L503.6075, L100.0100, L506.0400 #### [facility] [address] [place], [address] (621) T4 Free Directon 09-04-2024 T4 FREE DIRECT 0.89 ng/dL Normal 0.76-1.46 [facility] Comment on above: Performed By: #### L 501.9520, L506.0250, L502.0250, L501.5200, L3300.9910, L500.4050, L7400.3000, L503.0105, L503.6150, L503.6550, L503.6075, L100.0100, L506.0400 #### [facility] [address] [facility] [place], [place], [id number] Thyroid Stim Hormone (TSH)on 09-04-2024 TSH 1.780 uIU/mL Normal 0.358-3.740 [facility] Comment on above: Performed By: #### L 501.9520, L506.0250, L502.0250, L501.5200, L3300.9910, L500.4050, L7400.3000, L503.0105, L503.6150, L503.6550, L503.6075, L100.0100, L506.0400 #### [facility] [address] [place], [place], [phone] CBC W Auto Differential pane l (Bld)on 08-05-2024 Basophils (Bld) [#/Vol] 0.10 x10*3/uL Normal 0.00-0.10 [facility] Comment on above: Performed By: #### 5 7021-8 #### LAYLA MENDOZA ([id number]) [facility] ([facility]) [address] [place] [address] Basophils/100 WBC (Bld) 1.4 % Normal 0.0-2.0 [facility] Comment on above: Performed By: #### 5 7021-8 #### LAYLA MENDOZA ([id number]) [facility] ([facility]) [address] [place] [address] Eosinophils (Bld) [#/Vol] 0.38 x10*3/uL Normal 0.00-0.40 [facility] Comment on above: Performed By: #### 5 7021-8 #### LAYLA MENDOZA ([id number]) [facility] ([facility]) [address] [place] [address] Eosinophils/100 WBC (Bld) 5.4 % Normal 0.0-6.0 [facility] Comment on above: Performed By: #### 5 7021-8 #### LAYLA MENDOZA ([id number]) [facility] ([facility]) [address] [place] [address] 64773 Erythrocyte distribution width (RBC) [Ratio] 12.8 % Normal 11.5-14.5 [facility] Comment on above: Performed By: #### 5 7021-8 #### LAYLA MENDOZA ([id number]) [facility] ([facility]) [address] [place] [address] 13926 Hematocrit (Bld) [Volume fraction] 40.5 % Low 41.0-52.0 [facility] Comment on above: Performed By: #### 5 7021-8 #### LAYLA MENDOZA ([id number]) [facility] ([facility]) [address] [place] [address] Hemoglobin (Bld) [Mass/Vol] 13.8 g/dL Normal 13.5-17.5 [facility] Comment on above: Performed By: #### 5 7021-8 #### LAYLA MENDOZA ([id number]) [facility] ([facility]) [address] [place] [address] 10881 Immature granulocytes (Bld) [#/Vol] 0.04 x10*3/uL Normal 0.00-0.50 [facility] Comment on above: Performed By: #### 5 7021-8 #### LAYLA MENDOZA ([id number]) [facility] ([facility]) [address] [place] [address] 25905 Immature granulocytes/100 WBC (Bld) 0.6 % Normal 0.0-0.9 [facility] Comment on above: Result Comment: Yaquelin ture Granulocyte Count (IG) includes promyelocytes, myelocytes and metamyelocytes but does not include bands. Percent differential counts (%) should be interpreted in the context of the absolute cell counts (cells/UL). Performed By: #### 5 7021-8 #### LAYLA MENDOZA ([id number]) [facility] ([facility]) [address] [place] [address] 17010 Lymphocytes (Bld) [#/Vol] 2.22 x10*3/uL Normal 0.80-3.00 [facility] Comment on above: Performed By: #### 5 7021-8 #### LAYLA MENDOZA ([id number]) [facility] ([facility]) [address] [place] [address] 06111 Lymphocytes/100 WBC (Bld) 31.5 % Normal 13.0-44.0 [facility] Comment on above: Performed By: #### 5 7021-8 #### LAYLA MENDOZA ([id number]) [facility] ([facility]) [address] [place] [address] 38002 MCH (RBC) [Entitic mass] 35.8 pg High 26.0-34.0 [facility] Comment on above: Performed By: #### 5 7021-8 #### LAYLA MENDOZA ([id number]) [facility] ([facility]) [address] [place] [address] 16425 MCHC (RBC) [Mass/Vol] 34.1 g/dL Normal 32.0-36.0 [facility] Comment on above: Performed By: #### 5 7021-8 #### LAYLA MENDOZA ([id number]) [facility] ([facility]) [address] [place] [address] 60346 MCV (RBC) [Entitic vol] 105 fL High 80-100 [facility] Comment on above: Performed By: #### 5 7021-8 #### LAYLA MENDOZA ([id number]) [facility] ([facility]) [address] [place] [address] 36191 Monocytes (Bld) [#/Vol] 0.48 x10*3/uL Normal 0.05-0.80 [facility] Comment on above: Performed By: #### 5 7021-8 #### LAYLA MENDOZA ([id number]) [facility] ([facility]) [address] [place] [address] 22167 Monocytes/100 WBC (Bld) 6.8 % Normal 2.0-10.0 [facility] Comment on above: Performed By: #### 5 7021-8 #### LAYLA MENDOZA ([id number]) [facility] ([facility]) [address] [place] [address] 62090 Neutrophils (Bld) [#/Vol] 3.82 x10*3/uL Normal 1.60-5.50 [facility] Comment on above: Result Comment: Perc ent differential counts (%) should be interpreted in the context of the absolute cell counts (cells/uL). Performed By: #### 5 7021-8 #### LAYLA MENDOZA ([id number]) [facility] ([facility]) [address] [place] [address] 25551 Neutrophils/100 WBC (Bld) 54.3 % Normal 40.0-80.0 [facility] Comment on above: Performed By: #### 5 7021-8 #### LAYLA MENDOZA ([id number]) [facility] ([facility]) [address] [place] [address] 25568 Nucleated RBC/100 WBC (Bld) [Ratio] 0.0 /100 WBCs Normal 0.0-0.0 [facility] Comment on above: Performed By: #### 5 7021-8 #### LAYLA MENDOZA ([id number]) [facility] ([facility]) [address] [place] [address] Platelets (Bld) [#/Vol] 298 x10*3/uL Normal 150-450 [facility] Comment on above: Result Comment: Plat elet count verified by smear review. Performed By: #### 5 7021-8 #### LAYLA MENDOZA ([id number]) [facility] ([facility]) [address] [place] [address] RBC (Bld) [#/Vol] 3.86 x10*6/uL Low 4.50-5.90 [facility] Comment on above: Performed By: #### 5 7021-8 #### LAYLA MENDOZA ([id number]) [facility] ([facility]) [address] [place] [address] WBC (Bld) [#/Vol] 7.0 x10*3/uL Normal 4.4-11.3 [facility] Comment on above: Performed By: #### 5 7021-8 #### LAYLA MENDOZA ([id number]) [facility] ([facility]) [address] [place] [address] Comprehensive metabolic 2000 panelon 08-05-2024 Albumin BCP dye [Mass/Vol] 4.2 g/dL Normal 3.4-5.0 [facility] Comment on above: Performed By: #### 2 4323-8 #### LAYLA MENDOZA ([id number]) [facility] ([facility]) [address] [place] [address] 45773 ALP [Catalytic activity/Vol] 37 U/L Normal 33-136 [facility] Comment on above: Performed By: #### 2 4323-8 #### LAYLA MENDOZA ([id number]) [facility] ([facility]) [address] [place] [address] 31286 ALT With P-5'-P [Catalytic activity/Vol] 11 U/L Normal 10-52 [facility] Comment on above: Result Comment: Shey ents treated with Sulfasalazine may generate falsely decreased results for ALT. Performed By: #### 2 4323-8 #### LAYLA MENDOZA ([id number]) [facility] ([facility]) [address] [place] [address] Anion gap [Moles/Vol] 12 mmol/L Normal 10-20 [facility] Comment on above: Performed By: #### 2 4323-8 #### LAYLA MENDOZA ([id number]) [facility] ([facility]) [address] [place] [address] AST With P-5'-P [Catalytic activity/Vol] 17 U/L Normal 9-39 [facility] Comment on above: Performed By: #### 2 432-8 #### LAYLA MENDOZA ([id number]) [facility] ([facility]) [address] [place] [address] Bilirubin [Mass/Vol] 0.5 mg/dL Normal 0.0-1.2 [facility] Comment on above: Performed By: #### 2 432-8 #### LAYLA MENDOZA ([id number]) [facility] ([facility]) [facility] [place] [address] Calcium [Mass/Vol] 9.7 mg/dL Normal 8.6-10.3 [facility] Comment on above: Performed By: #### 2 4323-8 #### LAYLA MENDOZA ([id number]) [facility] ([facility]) [address] [place] [address] Chloride [Moles/Vol] 100 mmol/L Normal 98-107 [facility] Comment on above: Performed By: #### 2 4323-8 #### LAYLA MENDOZA ([id number]) [facility] ([facility]) [address] [place] [address] CO2 [Moles/Vol] 27 mmol/L Normal 21-32 [facility] Comment on above: Performed By: #### 2 4323-8 #### LAYLA MENDOZA ([id number]) [facility] ([facility]) [address] [place] [address] Creatinine [Mass/Vol] 1.55 mg/dL High 0.50-1.30 [facility] Comment on above: Performed By: #### 2 4323-8 #### LAYLA MENDOZA ([id number]) [facility] ([facility]) [address] [place] [address] 37574 Glomerular filtration rate/1.73 sq M.predicted 46 mL/min/1.73m*2 Low >60 [facility] Comment on above: Result Comment: Calc ulations of estimated GFR are performed using the 2020 CKD-EPI Study Refit equation without the race variable for the IDMS-Traceable creatinine methods. https://jasn.asnjournals.org/content/early//ASN.2020 295331 Performed By: #### 2 4323-8 #### LAYLA MENDOZA ([id number]) [facility] ([facility]) [address] [place] [address] 32170 Glucose [Mass/Vol] 164 mg/dL High 74-99 [facility] Comment on above: Performed By: #### 2 4323-8 #### LAYLA MENDOZA ([id number]) [facility] ([facility]) [facility] [place] [address] Potassium [Moles/Vol] 4.1 mmol/L Normal 3.5-5.3 [facility] Comment on above: Performed By: #### 2 4323-8 #### LAYLA MENDOZA ([id number]) [facility] ([facility]) [facility] [place] [address] Protein [Mass/Vol] 7.3 g/dL Normal 6.4-8.2 [facility] Comment on above: Performed By: #### 2 4323-8 #### LAYLA MENDOZA ([id number]) [facility] ([facility]) [address] [place] [address] 03567 Sodium [Moles/Vol] 135 mmol/L Low 136-145 [facility] Comment on above: Performed By: #### 2 4323-8 #### LAYLA MENDOZA ([id number]) [facility] ([facility]) [address] [place], [place] [address] Urea nitrogen [Mass/Vol] 20 mg/dL Normal 6-23 [facility] Comment on above: Performed By: #### 2 4323-8 #### LAYLA MENDOZA ([id number]) [facility] ([facility]) [address] [place] [address] HbA1c (Bld) [Mass fraction]o n 08-05-2024 Average glucose Estimated from glycated hemoglobin (Bld) [Mass/Vol] 174 mg/dL Normal Not Established [facility] Comment on above: Order Comment: Diagn osis of Diabetes-Adults Non-Diabetic: < or = 5.6% Increased risk for developing diabetes: 5.7-6.4% Diagnostic of diabetes: > or = 6.5% Performed By: #### 4 548-4 #### MANOHAR Duenas ([id number]) [facility] ([facility]) [address] [place], [place] [address] Hemoglobin A1c/Hemoglobin.to daa 08-05-2024 HbA1c (Bld) [Mass fraction] 7.7 % High See comment [facility] Comment on above: Order Comment: Diagn osis of Diabetes-Adults Non-Diabetic: < or = 5.6% Increased risk for developing diabetes: 5.7-6.4% Diagnostic of diabetes: > or = 6.5% Performed By: #### 4 548-4 #### MANOHAR Duenas ([id number]) [facility] ([facility]) [address] [place] [address] 73148 Magnesiumon 08-05-2024 Magnesium [Mass/Vol] 1.63 mg/dL Normal 1.60-2.40 [facility] Comment on above: Performed By: #### 1 9123-9 #### LAYLA MENDOZA ([id number]) [facility] ([facility]) [address] [place], [place] [address] TSH WITH REFLEX TO FREE T4 I F ABNORMALon 08-05-2024 TSH Qn 2.72 m[IU]/L Normal 0.44-3.98 [facility] Comment on above: Order Comment: TSH t esting is performed using different testing methodology at [facility] than at other [facility]. Direct result comparisons should only be made within the same method. Performed By: #### T OMAYRAS #### LAYLA MENDOZA ([id number]) [facility] ([facility]) [address] [place] [address] 02416 CBC W Auto Differential pane l (Bld)on 07-09-2024 Basophils (Bld) [#/Vol] 0.10 x10*3/uL Normal 0.00-0.10 [facility] Comment on above: Performed By: #### 5 7021-8 #### LAYLA MENDOZA ([id number]) [facility] ([facility]) [address] [place] [address] 39682 Basophils/100 WBC (Bld) 1.6 % Normal 0.0-2.0 [facility] Comment on above: Performed By: #### 5 7021-8 #### LAYLA MENDOZA ([id number]) [facility] ([facility]) [address] [place] [address] 70454 Eosinophils (Bld) [#/Vol] 0.26 x10*3/uL Normal 0.00-0.40 [facility] Comment on above: Performed By: #### 5 7021-8 #### LAYLA MENDOZA ([id number]) [facility] ([facility]) [address] [place] [address] 27916 Eosinophils/100 WBC (Bld) 4.2 % Normal 0.0-6.0 [facility] Comment on above: Performed By: #### 5 7021-8 #### LAYLA MENDOZA ([id number]) [facility] ([facility]) [address] [place] [address] 46945 Erythrocyte distribution width (RBC) [Ratio] 13.3 % Normal 11.5-14.5 [facility] Comment on above: Performed By: #### 5 7021-8 #### LAYLA MENDOZA ([id number]) [facility] ([facility]) [address] [place] [address] 07616 Hematocrit (Bld) [Volume fraction] 38.5 % Low 41.0-52.0 [facility] Comment on above: Performed By: #### 5 7021-8 #### LAYLA MENDOZA ([id number]) [facility] ([facility]) [address] [place] [address] 74938 Hemoglobin (Bld) [Mass/Vol] 12.4 g/dL Low 13.5-17.5 [facility] Comment on above: Performed By: #### 5 7021-8 #### LAYLA MENDOZA ([id number]) [facility] ([facility]) [address] [place] [address] 44927 Immature granulocytes (Bld) [#/Vol] 0.04 x10*3/uL Normal 0.00-0.50 [facility] Comment on above: Performed By: #### 5 7021-8 #### LAYLA MENDOZA ([id number]) [facility] ([facility]) [address] [place] [address] 76536 Immature granulocytes/100 WBC (Bld) 0.7 % Normal 0.0-0.9 [facility] Comment on above: Result Comment: Yaquelin ture Granulocyte Count (IG) includes promyelocytes, myelocytes and metamyelocytes but does not include bands. Percent differential counts (%) should be interpreted in the context of the absolute cell counts (cells/UL). Performed By: #### 5 7021-8 #### LAYLA MENDOZA ([id number]) [facility] ([facility]) [address] [place] [address] 89331 Lymphocytes (Bld) [#/Vol] 2.37 x10*3/uL Normal 0.80-3.00 [facility] Comment on above: Performed By: #### 5 7021-8 #### LAYLA MENDOZA ([id number]) [facility] ([facility]) [address] [place] [address] 83903 Lymphocytes/100 WBC (Bld) 38.5 % Normal 13.0-44.0 [facility] Comment on above: Performed By: #### 5 7021-8 #### LAYLA MENDOZA ([id number]) [facility] ([facility]) [facility] [place] [address] MCH (RBC) [Entitic mass] 35.3 pg High 26.0-34.0 [facility] Comment on above: Performed By: #### 5 7021-8 #### LAYLA MENDOZA ([id number]) [facility] ([facility]) [address] [place] [address] 52141 MCHC (RBC) [Mass/Vol] 32.2 g/dL Normal 32.0-36.0 [facility] Comment on above: Performed By: #### 5 7021-8 #### LAYLA MENDOZA ([id number]) [facility] ([facility]) [address] [place] [address] [phone] MCV (RBC) [Entitic vol] 110 fL High 80-100 [facility] Comment on above: Performed By: #### 5 7021-8 #### LAYLA MENDOZA ([id number]) [facility] ([facility]) [address] [place] [address] [phone] Monocytes (Bld) [#/Vol] 0.47 x10*3/uL Normal 0.05-0.80 [facility] Comment on above: Performed By: #### 5 7021-8 #### LAYLA MENDOZA ([id number]) [facility] ([facility]) [address] [place] [address] [phone] Monocytes/100 WBC (Bld) 7.6 % Normal 2.0-10.0 [facility] Comment on above: Performed By: #### 5 7021-8 #### LAYLA MENDOZA ([id number]) [facility] ([facility]) [address] [place] [address] [id number] Neutrophils (Bld) [#/Vol] 2.91 x10*3/uL Normal 1.60-5.50 [facility] Comment on above: Result Comment: Perc ent differential counts (%) should be interpreted in the context of the absolute cell counts (cells/uL). Performed By: #### 5 7021-8 #### LAYLA MENDOZA ([id number]) [facility] ([facility]) [address] [place] [address] [phone] Neutrophils/100 WBC (Bld) 47.4 % Normal 40.0-80.0 [facility] Comment on above: Performed By: #### 5 7021-8 #### LAYLA MENDOZA ([id number]) [facility] ([facility]) [address] [place] [address] 47685 Nucleated RBC/100 WBC (Bld) [Ratio] 0.0 /100 WBCs Normal 0.0-0.0 [facility] Comment on above: Performed By: #### 5 7021-8 #### LAYLA MENDOZA ([id number]) [facility] ([facility]) [address] [place] [address] 41829 Platelets (Bld) [#/Vol] 53 x10*3/uL Low 150-450 [facility] Comment on above: Performed By: #### 5 7021-8 #### LAYLA MENDOZA ([id number]) [facility] ([facility]) [address] [place] [address] 95613 RBC (Bld) [#/Vol] 3.51 x10*6/uL Low 4.50-5.90 [facility] Comment on above: Performed By: #### 5 7021-8 #### LAYLA MENDOZA ([id number]) [facility] ([facility]) [address] [place] [address] 30336 WBC (Bld) [#/Vol] 6.2 x10*3/uL Normal 4.4-11.3 [facility] Comment on above: Performed By: #### 5 7021-8 #### LAYLA MENDOZA ([id number]) [facility] ([facility]) [address] [place] [address] 47787 Cobalaminson 07-09-2024 Cobalamin (Vitamin B12) [Mass/Vol] 289 pg/mL Normal 211-911 [facility] Comment on above: Performed By: #### 2 132-9 #### LAYLA MENDOZA ([id number]) [facility] ([facility]) [address] [place] [address] 39383 Ferritinon 07-09-2024 Ferritin [Mass/Vol] 331 ng/mL High 20-300 [facility] Comment on above: Performed By: #### 2 276-4 #### LAYLA MENDOZA ([id number]) [facility] ([facility]) [address] [place] [address] 21775 Folateon 07-09-2024 Folate [Mass/Vol] 3.5 ng/mL Low >5.0 [facility] Comment on above: Order Comment: Low < 3.4 Borderline 3.4-5.0 Normal >5.0 Patients receiving more than 5 mg/day of biotin may have interference in test results. A sample should be taken no sooner than eight hours after previous dose. Contact the testing laboratory for additional information. Performed By: #### 2 284-8 #### LAYLA MENDOZA ([id number]) [facility] ([facility]) [address] [place] [address] 45314 Iron and Iron binding capaci ty panelon 07-09-2024 Iron [Mass/Vol] 110 ug/dL Normal 35-150 [facility] Comment on above: Performed By: #### 5 0190-8 #### LAYLA MENDOZA ([id number]) [facility] ([facility]) [address] [place] [address] 25097 Iron binding capacity [Mass/Vol] 397 ug/dL Normal 240-445 [facility] Comment on above: Performed By: #### 5 0190-8 #### LAYLA MENDOZA ([id number]) [facility] ([facility]) [address] [place] [address] 88722 Iron binding capacity.unsaturated [Mass/Vol] 287 ug/dL Normal 110-370 [facility] Comment on above: Performed By: #### 5 0190-8 #### LAYLA MENDOZA ([id number]) [facility] ([facility]) [address] [place] [address] 79898 Iron saturation [Mass fraction] 28 % Normal 25-45 [facility] Comment on above: Performed By: #### 5 0190-8 #### LAYLA MENDOZA ([id number]) [facility] ([facility]) [address] [place] [address] Methylmalonateon 07-09-2024 Methylmalonate [Moles/Vol] 0.24 umol/L Normal 0.00-0.40 [facility] Comment on above: Result Comment: INTE RPRETIVE INFORMATION: MMA Serum/Plasma, Vitamin B12 Status This test was developed and its performance characteristics determined by [facility]. It has not been cleared or approved by the [place] Food and Drug Administration. This test was performed in a CLIA certified laboratory and is intended for clinical purposes. Performed By: [facility] [address] [place] [address] 16245 Electrical Lineman: Eric Humphrey MD, PhD CLIA Number: [id number] Performed By: #### 4 548-4 #### RICH REJI ([id number]) [facility] ([facility]) [facility] [place] [address] PROTEIN / CREATININE RATIO, URINEon 06-27-2024 CREATININE,UR 152.0 mg/dL Normal [facility] Comment on above: Performed By: #### 4 7136 #### [facility] [address] [place], [place] [address] Eric Moser M.D. [id number] Protein (U) [Mass/Vol] 52.5 mg/dL Normal [facility] Comment on above: Performed By: #### 4 7136 #### [facility] [address] [place], [place] [address] Eric Moser M.D. [id number] PROTEIN CREATININE RATIO 0.3 ratio High 0.0-0.2 [facility] Comment on above: Performed By: #### 4 7136 #### [facility] [address] [place], [place] [address] Eric Moser M.D. [id number] PTH INTACT (PROCESSED AT [facility] )on 06-27-2024 Calcium [Mass/Vol] 9.8 mg/dL Normal 8.4-10.2 [facility] Comment on above: Performed By: #### 4 6413 #### [facility] [address] [place] [address] Eric Moser M.D. [id number] Order Comment: [facility] has implemented the eGFR calculation approach that does not have a coefficient for race that conforms to the NKF-ASN Task Force Recommendations. Performed By: #### 4 6449 #### [facility] [address] [place], [place] [address] Eric Moser M.D. [id number] PTH INTACT 15.7 pg/mL Normal 12.0-65.0 [facility] Comment on above: Performed By: #### 4 6413 #### LAB [address] [place] [id number] Eric Moser M.D. [id number] RENAL FUNCTION PANELon 06-27 Albumin [Mass/Vol] 3.9 g/dL Normal 3.2-5.2 [facility] Comment on above: Order Comment: [facility] has implemented the eGFR calculation approach that does not have a coefficient for race that conforms to the NKF-ASN Task Force Recommendations. Performed By: #### 4 6449 #### [facility] [address] [place] [address] Eric Moser M.D. [id number] Anion gap [Moles/Vol] 16 mmol/L Normal 10-20 [facility] Comment on above: Order Comment: [facility] has implemented the eGFR calculation approach that does not have a coefficient for race that conforms to the NKF-ASN Task Force Recommendations. Performed By: #### 4 6449 #### [facility] [address] [place] [address] Eric Moser M.D. [id number] Chloride [Moles/Vol] 102 mmol/L Normal 98-108 [facility] Comment on above: Order Comment: [facility] has implemented the eGFR calculation approach that does not have a coefficient for race that conforms to the NKF-ASN Task Force Recommendations. Performed By: #### 4 6449 #### [facility] [address] [place] [address] Eric Moser M.D. [id number] Creatinine [Mass/Vol] 1.46 mg/dL High 0.80-1.30 [facility] Comment on above: Order Comment: [facility] has implemented the eGFR calculation approach that does not have a coefficient for race that conforms to the NKF-ASN Task Force Recommendations. Performed By: #### 4 6449 #### [facility] [address] [place], [place] [address] Eric Moser M.D. [id number] EGFR 50 mL/min/1.73 m2 Low >=60 [facility] Comment on above: Order Comment: [facility] has implemented the eGFR calculation approach that does not have a coefficient for race that conforms to the NKF-ASN Task Force Recommendations. Result Comment: Telma mated GFR was calculated using the 2020 CKD-EPI creatinine equation. Performed By: #### 4 6449 #### [facility] [address] [place] [address] Eric Moser M.D. [id number] Glucose [Mass/Vol] 178 mg/dL High 65-99 [facility] Comment on above: Order Comment: [facility] has implemented the eGFR calculation approach that does not have a coefficient for race that conforms to the NKF-ASN Task Force Recommendations. Performed By: #### 4 6449 #### [facility] [address] [place] [address] Eric Moser M.D. [id number] HCO3 (Bld) [Moles/Vol] 25 mmol/L Normal 21-32 [facility] Comment on above: Order Comment: [facility] has implemented the eGFR calculation approach that does not have a coefficient for race that conforms to the NKF-ASN Task Force Recommendations. Performed By: #### 4 6449 #### [facility] [address] [place] [address] Eric Moser M.D. [id number] Phosphate [Mass/Vol] 2.7 mg/dL Normal 2.3-3.7 [facility] Comment on above: Order Comment: [facility] has implemented the eGFR calculation approach that does not have a coefficient for race that conforms to the NKF-ASN Task Force Recommendations. Performed By: #### 4 6449 #### [facility] [address] [place], [place] [address] Eric Moser M.D. [id number] Potassium [Moles/Vol] 5.0 mmol/L Normal 3.5-5.1 [facility] Comment on above: Order Comment: [facility] has implemented the eGFR calculation approach that does not have a coefficient for race that conforms to the NKF-ASN Task Force Recommendations. Performed By: #### 4 6449 #### [facility] [address] [place], [place] [address] Eric Moser M.D. [id number] Sodium [Moles/Vol] 138 mmol/L Normal 135-145 [facility] Comment on above: Order Comment: [facility] has implemented the eGFR calculation approach that does not have a coefficient for race that conforms to the NKF-ASN Task Force Recommendations. Performed By: #### 4 6449 #### [facility] [address] [place] [address] Eric Moser M.D. [id number] Urea nitrogen [Mass/Vol] 13 mg/dL Normal 8-25 [facility] Comment on above: Order Comment: [facility] has implemented the eGFR calculation approach that does not have a coefficient for race that conforms to the NKF-ASN Task Force Recommendations. Performed By: #### 4 6449 #### [facility] [address] [place], [place] [address] Eric Moser M.D. [id number] Urea nitrogen/Creatinine [Mass ratio] 8.9 mg/mg Low 10.0-20.0 [facility] Comment on above: Order Comment: [facility] has implemented the eGFR calculation approach that does not have a coefficient for race that conforms to the NKF-ASN Task Force Recommendations. Performed By: #### 4 6449 #### [facility] [address] [place], [place] [address] Eric Moser M.D. [id number] WOUND AEROBIC CULTUREon 04-29 WOUND AEROBIC CULTURE AEROBIC CULTURE Few Growth Normal Skin [place] GRAM STAIN RESULT No Organisms Seen Few WBC Many RBC Normal [facility] Comment on above: Performed By: #### 4 4060 #### [facility] [address] [place] [address] Bob Curran M.D. [id number] WOUND ANAEROBIC CULTUREon WOUND ANAEROBIC CULTURE ANAEROBE CULTURE No Anaerobic Growth at 5 Days Normal [facility] Comment on above: Performed By: #### 4 4287 #### [facility] [address] [place] [address] Bob Curran M.D. [id number] XR ORTHO FOOT RIGHTon 2023 XR ORTHO FOOT RIGHT 3 views of the right foot reviewed today AP MO and lateral. No acute fracture or dislocation of note. No evidence of cortical lysis or subcutaneous emphysema. Stable x-ray. Dictated by: BHUMIKA LIN on [place] May 19, 2024 10:27:10 AM EDT Transcribed by: BHUMIKA LIN on [place] May 19, 2024 10:27:10 AM EDT Finalized by: BHUMIKA LIN on [place] May 19, 2024 10:27:10 AM EDT Normal [facility] Comment on above: Order Comment: Injur y/Trauma or Illness?:Illness/Other How long have you had these symptoms (acute/chronic)?:Unknown Reason for exam?:Right great toe History of cancer?:Unknown Surgeries, chemotherapy, or radiation?:Unknown Type of Exam?:Initial Additional signs and symptoms?:Right great toe CBC W Auto Differential pane l (Bld)on 04-25-2024 Basophils (Bld) [#/Vol] 0.10 x10*3/uL Normal 0.00-0.10 [facility] Comment on above: Performed By: #### 5 7021-8 #### LAYLA MENDOZA ([id number]) [facility] ([facility]) [address] [place] [address] Basophils/100 WBC (Bld) 1.2 % Normal 0.0-2.0 [facility] Comment on above: Performed By: #### 5 7021-8 #### LAYLA MENDOZA ([id number]) [facility] ([facility]) [address] [place] [address] 41542 Eosinophils (Bld) [#/Vol] 0.36 x10*3/uL Normal 0.00-0.40 [facility] Comment on above: Performed By: #### 5 7021-8 #### LAYLA MENDOZA ([id number]) [facility] ([facility]) [address] [place] [address] 71382 Eosinophils/100 WBC (Bld) 4.4 % Normal 0.0-6.0 [facility] Comment on above: Performed By: #### 7021-8 #### LAYLA MENDOZA ([id number]) [facility] ([facility]) [address] [place] [address] 50103 Erythrocyte distribution width (RBC) [Ratio] 14.0 % Normal 11.5-14.5 [facility] Comment on above: Performed By: #### 5 7021-8 #### LAYLA MENDOZA ([id number]) [facility] ([facility]) [address] [place], [place] [address] Hematocrit (Bld) [Volume fraction] 36.8 % Low 41.0-52.0 [facility] Comment on above: Performed By: #### 5 7021-8 #### LAYLA MENDOZA ([id number]) [facility] ([facility]) [address] [place] [address] 93039 Hemoglobin (Bld) [Mass/Vol] 12.2 g/dL Low 13.5-17.5 [facility] Comment on above: Performed By: #### 5 7021-8 #### LAYLA MENDOZA ([id number]) [facility] ([facility]) [address] [place] [address] 56480 Immature granulocytes (Bld) [#/Vol] 0.02 x10*3/uL Normal 0.00-0.50 [facility] Comment on above: Performed By: #### 5 7021-8 #### LAYLA MENDOZA ([id number]) [facility] ([facility]) [address] [place] [address] 43288 Immature granulocytes/100 WBC (Bld) 0.2 % Normal 0.0-0.9 [facility] Comment on above: Result Comment: Yaquelin ture Granulocyte Count (IG) includes promyelocytes, myelocytes and metamyelocytes but does not include bands. Percent differential counts (%) should be interpreted in the context of the absolute cell counts (cells/UL). Performed By: #### 5 7021-8 #### LAYLA MENDOZA ([id number]) [facility] ([facility]) [address] [place] [address] Lymphocytes (Bld) [#/Vol] 2.88 x10*3/uL Normal 0.80-3.00 [facility] Comment on above: Performed By: #### 5 7021-8 #### LAYLA MENDOZA ([id number]) [facility] ([facility]) [address] [place] [address] Lymphocytes/100 WBC (Bld) 35.3 % Normal 13.0-44.0 [facility] Comment on above: Performed By: #### 5 7021-8 #### LAYLA MENDOZA ([id number]) [facility] ([facility]) [address] [place] [address] 08674 MCH (RBC) [Entitic mass] 35.0 pg High 26.0-34.0 [facility] Comment on above: Performed By: #### 5 7021-8 #### LAYLA MENDOZA ([id number]) [facility] ([facility]) [address] [place] [address] 79459 MCHC (RBC) [Mass/Vol] 33.2 g/dL Normal 32.0-36.0 [facility] Comment on above: Performed By: #### 5 7021-8 #### LAYLA MENDOZA ([id number]) [facility] ([facility]) [address] [place] [address] 00692 MCV (RBC) [Entitic vol] 105 fL High 80-100 [facility] Comment on above: Performed By: #### 5 7021-8 #### LAYLA MENDOZA ([id number]) [facility] ([facility]) [address] [place] [address] 23675 Monocytes (Bld) [#/Vol] 0.79 x10*3/uL Normal 0.05-0.80 [facility] Comment on above: Performed By: #### 5 7021-8 #### LAYLA MENDOZA ([id number]) [facility] ([facility]) [address] [place] [address] 38522 Monocytes/100 WBC (Bld) 9.7 % Normal 2.0-10.0 [facility] Comment on above: Performed By: #### 5 7021-8 #### LAYLA MENDOZA ([id number]) [facility] ([facility]) [address] [place] [address] 40885 Neutrophils (Bld) [#/Vol] 4.01 x10*3/uL Normal 1.60-5.50 [facility] Comment on above: Result Comment: Perc ent differential counts (%) should be interpreted in the context of the absolute cell counts (cells/uL). Performed By: #### 5 7021-8 #### LAYLA MENDOZA ([id number]) [facility] ([facility]) [address] [place] [address] 33133 Neutrophils/100 WBC (Bld) 49.2 % Normal 40.0-80.0 [facility] Comment on above: Performed By: #### 5 7021-8 #### LAYLA MENDOZA ([id number]) [facility] ([facility]) [address] [place] [address] 76612 Nucleated RBC/100 WBC (Bld) [Ratio] 0.0 /100 WBCs Normal 0.0-0.0 [facility] Comment on above: Performed By: #### 5 7021-8 #### LAYLA MENDOZA ([id number]) [facility] ([facility]) [address] [place] [address] 51262 Platelets (Bld) [#/Vol] 282 x10*3/uL Normal 150-450 [facility] Comment on above: Performed By: #### 5 7021-8 #### LAYLA MENDOZA ([id number]) [facility] ([facility]) [address] [place] [address] 18476 RBC (Bld) [#/Vol] 3.49 x10*6/uL Low 4.50-5.90 [facility] Comment on above: Performed By: #### 5 7021-8 #### LAYLA MENDOZA ([id number]) [facility] ([facility]) [address] [place] [address] WBC (Bld) [#/Vol] 8.2 x10*3/uL Normal 4.4-11.3 [facility] Comment on above: Performed By: #### 5 7021-8 #### LAYLA MENDOZA ([id number]) [facility] ([facility]) [address] [place] [address] Comprehensive metabolic 2000 panelon 04-25-2024 Albumin BCP dye [Mass/Vol] 4.2 g/dL Normal 3.4-5.0 [facility] Comment on above: Performed By: #### 2 4323-8 #### LAYLA MENDOZA ([id number]) [facility] ([facility]) [address] [place] [address] ALP [Catalytic activity/Vol] 40 U/L Normal 33-136 [facility] Comment on above: Performed By: #### 2 4323-8 #### LAYLA MENDOZA ([id number]) [facility] ([facility]) [address] [place] [address] 52845 ALT With P-5'-P [Catalytic activity/Vol] 14 U/L Normal 10-52 [facility] Comment on above: Result Comment: Shey ents treated with Sulfasalazine may generate falsely decreased results for ALT. Performed By: #### 2 4323-8 #### LAYLA MENDOZA ([id number]) [facility] ([facility]) [address] [place] [address] 14099 Anion gap [Moles/Vol] 14 mmol/L Normal 10-20 [facility] Comment on above: Performed By: #### 2 4323-8 #### LAYLA MENDOZA ([id number]) [facility] ([facility]) [address] [place] [address] 35709 AST With P-5'-P [Catalytic activity/Vol] 17 U/L Normal 9-39 [facility] Comment on above: Performed By: #### 2 4323-8 #### LAYLA MENDOZA ([id number]) [facility] ([facility]) [address] [place] [address] Bilirubin [Mass/Vol] 0.4 mg/dL Normal 0.0-1.2 [facility] Comment on above: Performed By: #### 2 4323-8 #### LAYLA MENDOZA ([id number]) [facility] ([facility]) [address] [place] [address] 11144 Calcium [Mass/Vol] 9.5 mg/dL Normal 8.6-10.3 [facility] Comment on above: Performed By: #### 2 4323-8 #### LAYLA MENDOZA ([id number]) [facility] ([facility]) [address] [place] [address] 56046 Chloride [Moles/Vol] 103 mmol/L Normal 98-107 [facility] Comment on above: Performed By: #### 2 4323-8 #### LAYLA MENDOZA ([id number]) [facility] ([facility]) [address] [place] [address] CO2 [Moles/Vol] 21 mmol/L Normal 21-32 [facility] Comment on above: Performed By: #### 2 4323-8 #### LAYLA MENDOZA ([id number]) [facility] ([facility]) [address] [place] [address] 43942 Creatinine [Mass/Vol] 1.44 mg/dL High 0.50-1.30 [facility] Comment on above: Performed By: #### 2 4323-8 #### LAYLA MENDOZA ([id number]) [facility] ([facility]) [address] [place] [address] 48680 Glomerular filtration rate/1.73 sq M.predicted 51 mL/min/1.73m*2 Low >60 [facility] Comment on above: Result Comment: Calc ulations of estimated GFR are performed using the 2020 CKD-EPI Study Refit equation without the race variable for the IDMS-Traceable creatinine methods. https://jasn.asnjournals.org/content//ASN.2020 267339 Performed By: #### 2 4323-8 #### LAYLA MENDOZA ([id number]) [facility] ([facility]) [address] [place] [address] 01069 Glucose [Mass/Vol] 192 mg/dL High 74-99 [facility] Comment on above: Performed By: #### 2 4323-8 #### LAYLA MENDOZA ([id number]) [facility] ([facility]) [address] [place] [address] 47995 Potassium [Moles/Vol] 4.3 mmol/L Normal 3.5-5.3 [facility] Comment on above: Performed By: #### 2 4323-8 #### LAYLA MENDOZA ([id number]) [facility] ([facility]) [address] [place] [address] 46346 Protein [Mass/Vol] 6.9 g/dL Normal 6.4-8.2 [facility] Comment on above: Performed By: #### 2 4323-8 #### LAYLA MENDOZA ([id number]) [facility] ([facility]) [address] [place] [address] 28050 Sodium [Moles/Vol] 134 mmol/L Low 136-145 [facility] Comment on above: Performed By: #### 2 4323-8 #### LAYLA MENDOZA ([id number]) [facility] ([facility]) [address] [place] [address] 25008 Urea nitrogen [Mass/Vol] 22 mg/dL Normal 6-23 [facility] Comment on above: Performed By: #### 2 4323-8 #### LAYLA MENDOZA ([id number]) [facility] ([facility]) [address] [place] [address] 17497 HbA1c (Bld) [Mass fraction]o n 04-25-2024 Average glucose Estimated from glycated hemoglobin (Bld) [Mass/Vol] 192 mg/dL Normal Not Established [facility] Comment on above: Order Comment: Diagn osis of Diabetes-Adults Non-Diabetic: < or = 5.6% Increased risk for developing diabetes: 5.7-6.4% Diagnostic of diabetes: > or = 6.5% Performed By: #### 4 548-4 #### LAYLA MENDOZA ([id number]) [facility] ([facility]) [address] [place] [address] 66915 Hemoglobin A1c/Hemoglobin.to ada 04-25-2024 HbA1c (Bld) [Mass fraction] 8.3 % High see below [facility] Comment on above: Order Comment: Diagn osis of Diabetes-Adults Non-Diabetic: < or = 5.6% Increased risk for developing diabetes: 5.7-6.4% Diagnostic of diabetes: > or = 6.5% Performed By: #### 4 548-4 #### LAYLA MENDOZA ([id number]) [facility] ([facility]) [address] [place] [address] 67216 Lipid 1996 panelon Cholesterol [Mass/Vol] 181 mg/dL Normal 0-199 Un [facility] Comment on above: Result Comment: Age [...] By: #### 2 4331-1 #### LAYLA MENDOZA ([id number]) [facility] ([facility]) [address] [place] [address] 45175 Cholesterol in HDL [Mass/Vol] 34.0 mg/dL Normal [facility] Comment on above: Result Comment: Age Very Low Low Normal High 0-19 Y < 35 < 40 40-45 ---- 20-24 Y ---- < 40 >45 ---- >24 Y ---- < 40 40-60 >60 Performed By: #### 2 4331-1 #### LAYLA MENDOZA ([id number]) [facility] ([facility]) [address] [place] [address] 74363 Cholesterol in LDL [Mass/Vol] Normal [facility] Comment on above: Result Comment: The calculation [...] By: #### 2 4331-1 #### LAYLA MENDOZA ([id number]) [facility] ([facility]) [address] [place] [address] 34499 CHOLESTEROL/HDL RATIO 5.3 Normal [facility] Comment on above: Result Comment: Ref Values Desirable < 3.4 High Risk > 5.0 Performed By: #### 2 4331-1 #### LAYLA MENDOZA ([id number]) [facility] ([facility]) [address] [place] [address] 88866 NON HDL CHOLESTEROL 147 mg/dL Normal 0-149 [facility] Comment on above: Result Comment: Age Desirable Borderline High High Very High 0-19 Y 0 - 119 120 - 144 >/= 145 >/= 160 20-24 Y 0 - 149 150 - 189 >/= 190 ---- >24 Y 30 mg/dL above LDL Cholesterol goal Performed By: #### 2 4331-1 #### LAYLA MENDOZA ([id number]) [facility] ([facility]) [address] [place] [address] 81480 Triglyceride [Mass/Vol] 546 mg/dL High 0-149 U [facility] Comment on above: Result Comment: Age Desirable [...] By: #### 2 4331-1 #### LAYLA MENDOZA ([id number]) [facility] ([facility]) [address] [place] [address] VLDL Normal [facility] Comment on above: Result Comment: Unab le to calculate VLDL. Performed By: #### 2 4331-1 #### LAYLA MENDOZA ([id number]) [facility] ([facility]) [address] [place] [address] Prostate specific Agon 04-25 Prostate specific Ag [Mass/Vol] 0.95 ng/mL Normal <=4.00 [facility] Comment on above: Order Comment: The F DA requires that the method used for PSA assay be reported to the physician. Values obtained with different assay methods must not be used interchangeably. This test was performed at [facility] using the Nubefy PSA assay is a two-site immunoenzymatic sandwich assay. The assay is approved for measurement of prostate-specific antigen (PSA)in serum and may be used in conjunction with a digital rectal examination in men 50 years and older as an aid in detection of prostate cancer. 8-Ysagj-saffwyntk inhibitors (e.g. Proscar, Finasteride, Avodart, Dutasteride and Carmenza) for the treatment of BPH have been shown to lower PSA levels by an average of 50% after 6 months of treatment. Performed By: #### 2 857-1 #### LAYLA MENDOZA ([id number]) [facility] ([facility]) [address] [place] [address] US DOPPLER SEGMENTAL ARTERIA L LEGS BILATERALon 03-21-2024 US DOPPLER SEGMENTAL ARTERIAL LEGS BILATERAL Patient Info Name: STEVO GERMAIN Age: 74 years : 1950 Gender: Male Exam Date: 03/21/2024 3:08 PM Patient Status: Outpatient Material Checker: Albert Inman RVT Referring Physician: BUDDY LIN II ; Indications - non palpable pulses, tobacco use I73.9 - Peripheral vascular disease, unspecified Procedure Description 10606 Limited bilateral noninvasive physiologic studies of upper [...] Chaparro MD on 03/21/2024 04:04 PM Normal [facility] Ambulatory COMPREHENSIVE METABOLIC PANE [facility] 03-08-2024 Albumin [Mass/Vol] 3.9 g/dL Normal 3.2-5.2 [facility] Comment on above: Order Comment: [facility] has implemented the eGFR calculation approach that does not have a coefficient for race that conforms to the NKF-ASN Task Force Recommendations. Performed By: #### 4 6126 #### [facility] [address] [place], [place] [address] Bob Curran M.D. [id number] ALP [Catalytic activity/Vol] 53 U/L Normal 40-150 [facility] Comment on above: Order Comment: [facility] has implemented the eGFR calculation approach that does not have a coefficient for race that conforms to the NKF-ASN Task Force Recommendations. Performed By: #### 4 6126 #### [facility] [address] [place], [place] [address] Bob Curran M.D. [id number] ALT [Catalytic activity/Vol] 12 U/L Normal 0-50 U/L [facility] Comment on above: Order Comment: [facility] has implemented the eGFR calculation approach that does not have a coefficient for race that conforms to the NKF-ASN Task Force Recommendations. Performed By: #### 4 6126 #### [facility] [address] [place], [place] [address] Bob Curran M.D. [id number] Anion gap [Moles/Vol] 17 mmol/L Normal 10-20 [facility] Comment on above: Order Comment: [facility] has implemented the eGFR calculation approach that does not have a coefficient for race that conforms to the NKF-ASN Task Force Recommendations. Performed By: #### 4 6126 #### [facility] [address] [place] [address] Bob Curran M.D. [id number] AST [Catalytic activity/Vol] 16 U/L Normal 0-50 U/L [facility] Comment on above: Order Comment: [facility] has implemented the eGFR calculation approach that does not have a coefficient for race that conforms to the NKF-ASN Task Force Recommendations. Performed By: #### 4 6126 #### [facility] [address] [place] [address] Bob Curran M.D. [id number] Bilirubin [Mass/Vol] 0.3 mg/dL Normal 0.0-1.3 [facility] Comment on above: Order Comment: [facility] has implemented the eGFR calculation approach that does not have a coefficient for race that conforms to the NKF-ASN Task Force Recommendations. Performed By: #### 4 6126 #### [facility] [address] [place] [address] Bob Curran M.D. [id number] Calcium [Mass/Vol] 9.4 mg/dL Normal 8.4-10.2 [facility] Comment on above: Order Comment: [facility] has implemented the eGFR calculation approach that does not have a coefficient for race that conforms to the NKF-ASN Task Force Recommendations. Performed By: #### 4 6126 #### [facility] [address] [place] [address] Bob Curran M.D. [id number] Chloride [Moles/Vol] 99 mmol/L Normal 98-108 [facility] Comment on above: Order Comment: [facility] has implemented the eGFR calculation approach that does not have a coefficient for race that conforms to the NKF-ASN Task Force Recommendations. Performed By: #### 4 6126 #### [facility] [address] [place] [address] Bob Curran M.D. [id number] Creatinine [Mass/Vol] 1.33 mg/dL High 0.80-1.30 [facility] Comment on above: Order Comment: [facility] has implemented the eGFR calculation approach that does not have a coefficient for race that conforms to the NKF-ASN Task Force Recommendations. Performed By: #### 4 6126 #### [facility] [address] [place] [address] Bob Curran M.D. [id number] EGFR 56 mL/min/1.73 m2 Low >=60 [facility] Comment on above: Order Comment: [facility] has implemented the eGFR calculation approach that does not have a coefficient for race that conforms to the NKF-ASN Task Force Recommendations. Result Comment: Telma mated GFR was calculated using the 2020 CKD-EPI creatinine equation. Performed By: #### 4 6126 #### [facility] [address] [place], [place] [address] Bob Curran M.D. [id number] Glucose [Mass/Vol] 201 mg/dL High 65-99 [facility] Comment on above: Order Comment: [facility] has implemented the eGFR calculation approach that does not have a coefficient for race that conforms to the NKF-ASN Task Force Recommendations. Performed By: #### 4 6126 #### [facility] [address] [place], [place] [address] Bob Curran M.D. [id number] HCO3 (Bld) [Moles/Vol] 22 mmol/L Normal 21-32 [facility] Comment on above: Order Comment: [facility] has implemented the eGFR calculation approach that does not have a coefficient for race that conforms to the NKF-ASN Task Force Recommendations. Performed By: #### 4 6126 #### [facility] [address] [place], [place] [address] Bob Curran M.D. [id number] Potassium [Moles/Vol] 4.9 mmol/L Normal 3.5-5.1 [facility] Comment on above: Order Comment: [facility] has implemented the eGFR calculation approach that does not have a coefficient for race that conforms to the NKF-ASN Task Force Recommendations. Performed By: #### 4 6126 #### [facility] [address] [place] [address] Bob Curran M.D. [id number] Protein [Mass/Vol] 7.3 g/dL Normal 6.0-8.0 [facility] Comment on above: Order Comment: [facility] has implemented the eGFR calculation approach that does not have a coefficient for race that conforms to the NKF-ASN Task Force Recommendations. Performed By: #### 4 6126 #### [facility] [address] [place] [address] Bob Curran M.D. [id number] Sodium [Moles/Vol] 133 mmol/L Low 135-145 [facility] Comment on above: Order Comment: [facility] has implemented the eGFR calculation approach that does not have a coefficient for race that conforms to the NKF-ASN Task Force Recommendations. Performed By: #### 4 6126 #### [facility] [address] [place] [address] 624[address] Bob Curran M.D. [id number] Urea nitrogen [Mass/Vol] 23 mg/dL Normal 8-25 [facility] Comment on above: Order Comment: [facility] has implemented the eGFR calculation approach that does not have a coefficient for race that conforms to the NKF-ASN Task Force Recommendations. Performed By: #### 4 6126 #### [facility] [address] [place] [address]6037 Bob Curran M.D. [id number] Urea nitrogen/Creatinine [Mass ratio] 17.3 mg/mg Normal 10.0-20.0 [facility] Comment on above: Order Comment: [facility] has implemented the eGFR calculation approach that does not have a coefficient for race that conforms to the NKF-ASN Task Force Recommendations. Performed By: #### 4 6126 #### [facility] [address] [place] [address] 37731 Bob Curran M.D. [id number] HEMOGLOBIN A1Con 03-08-2024 Glucose [Mass/Vol] 214 mg/dL High 74-114 [facility] Comment on above: Order Comment: [place] l: 4.2% - 5.6% Increased risk for diabetes: 5.7% - 6.4% Diabetes: >= 6.5% Pediatrics: No established reference range Estimated average glucose: 74-114 mg/dL Performed By: #### 4 8202 #### [facility] [address] [place], [place] [address] Bob Curran M.D. [id number] HbA1c (Bld) [Mass fraction] 9.1 % High 4.2-5.6 [facility] Comment on above: Order Comment: Keturah l: 4.2% - 5.6% Increased risk for diabetes: 5.7% - 6.4% Diabetes: >= 6.5% Pediatrics: No established reference range Estimated average glucose: 74-114 mg/dL Performed By: #### 4 8202 #### [facility] [address] [place] [address] Bob Curran M.D. [id number] LIPID PANELon 03-08-2024 Cholesterol [Mass/Vol] 161 mg/dL Normal 100-199 [facility] Comment on above: Performed By: #### 4 6087 #### [facility] [address] [place], [place] [address]Marty Curran M.D. [id number] Cholesterol in HDL [Mass/Vol] 34 mg/dL Low 40-59 [facility] Comment on above: Performed By: #### 4 6087 #### [facility] [address] [place], [place] [address] Bob Curran M.D. [id number] Cholesterol.total/Caren sterol in HDL [Mass ratio] 4.7 {ratio} Normal [facility] Comment on above: Result Comment: Male s Cholesterol/HDL Ratio: Average risk: 5.0 1/2 average risk: 3.4 2 x average risk: 9.6 Performed By: #### 4 6081 #### [facility] [address] [place], [place] [address] Bob Curran M.D. [id number] LDL CHOLESTEROL CALCULATED 68 mg/dL Normal 10-130 [facility] Comment on above: Result Comment: [place] Cholesterol Education Program Guidelines: LDL Cholesterol Optimal: <100 mg/dL Near Optimal/above Optimal: 100-129 mg/dL Borderline High: 130-159 mg/dL High: 160-189 mg/dL Very High: greater than or equal to 190 mg/dL Performed By: #### 4 6087 #### [facility] [address] [place] [address]71 Bob Curran M.D. [id number] NON HDL CHOL 127 mg/dL Normal [facility] Comment on above: Result Comment: [place] [employer] Cholesterol Education [employer] Guidelines: NON HDL Cholesterol Desirable: <130 mg/dL Borderline High: 130-159 mg/dL High: 160-189 mg/dL Very High: > or = 190 mg/dL Performed By: #### 4 6087 #### [facility] [address] [place] [address] Bob Curran M.D. [id number] Triglyceride [Mass/Vol] 294 mg/dL High 30-150 M [facility] Comment on above: Performed By: #### 4 6087 #### [facility] [address] [place] [address] 81009 Bob Curran M.D. [id number] MICROALBUMIN/CREATININE RATI O, UR RANDOMon 03-08-2024 Albumin DL <= 20 mg/L (U) [Mass/Vol] 33.6 mg/dL High 0.0-1.8 [facility] Comment on above: Performed By: #### L [id number] #### [facility] [address] [place], [place] [address] Eric Moser M.D. [id number] CREATININE, URINE, RANDOM 79.5 mg/dL Normal [facility] Comment on above: Performed By: #### L [id number] #### [facility] [address] [place], [place] [address] Eric Moser M.D. [id number] MICROALBUMIN/CREATININE RATIO 423 mg/g crea High 0-25 [facility] Comment on above: Performed By: #### L [id number] #### [facility] [address] [place], [place] [address] Eric Moser M.D. [id number] T4, FREEon 03-08-2024 Free T4 [Mass/Vol] 1.1 ng/dL Normal 0.7-1.7 [facility] Comment on above: Performed By: #### 4 6567 #### [facility] [address] [place] [address] Bob Curran M.D. [id number] TSHon 03-08-2024 TSH Qn 1.99 m[IU]/L Normal 0.27-4.20 [facility] Comment on above: Performed By: #### 4 6613 #### [facility] [address] [place] [address] Bob Curran M.D. [id number] COVID-19/INFLUENZA A,B MOLEC ULARon 02-22-2024 SARS-CoV-2 (COVID-19) Ab IA Ql SARS-COV-2 (EDITH): Not Detected INFLUENZA A (EDITH): Not Detected INFLUENZA B (EDITH): Not Detected Normal Not Detected [facility] Comment on above: Performed By: #### L [id number] #### LAB [address] [place] [id number] Eric Moser M.D. [id number] XR CHEST PA/APon 02-22-2024 XR CHEST PA/AP [...] identified. Workstation ID: [id number] Dictated by: BIB BARKSDALE on MonFeb 22, 2024 1:57:59 PM EDT Transcribed by: BIB BARKSDALE on MonFeb 22, 2024 1:57:59 PM EDT Finalized by: BIB BARKSDALE on MonFeb 22, 2024 1:57:59 PM EDT Normal [facility] Comment on above: Order [...] care plan. LAB F/U (WAS ORDERED BY SAFETY ASSOCIATE), MED REFILL. SORE THROAT SINCE THIS MORNING, [...] (530.81) (K21. (more content not included)... Normal [employer] BASIC METABOLIC PANELon 10-30 Anion gap [Moles/Vol] 15 mmol/L Normal 10 - [address] [facility] Comment on above: Performed By: #### B MP #### [facility] [address] [place] [address] Calcium [Mass/Vol] 9.4 mg/dL Normal 8.6 - 10.3 [facility] Comment on above: Performed By: #### B MP #### [address] [address] Chloride [Moles/Vol] 97 mmol/L Low 98 - 107 [facility] Comment on above: Performed By: #### B MP #### [address] [address] Creatinine [Mass/Vol] 2.08 mg/dL High 0.50 - 1.30 [facility] Comment on above: Performed By: #### B MP #### [address] [address] GFR/1.73 sq M.predicted among non-blacks MDRD (S/P/Bld) [Vol rate/Area] 33 mL/min/{1.73_m2} Abnormal >90 [facility] Comment on above: Result Comment: CALC ULATIONS OF ESTIMATED GFR ARE PERFORMED USING THE 2020 CKD-EPI STUDY REFIT EQUATION WITHOUT THE RACE VARIABLE FOR THE IDMS-TRACEABLE CREATININE METHODS. https://jasn.asnjournals.org/content/early/ASN.2020 113663 Performed By: #### B MP #### [address] [address] Glucose [Mass/Vol] 260 mg/dL High 74 - 99 [facility] Comment on above: Performed By: #### B MP #### [address] [address] HCO3 (Bld) [Moles/Vol] 24 mmol/L Normal 21 - 32 [facility] Comment on above: Performed By: #### B MP #### [address] [address] Potassium [Moles/Vol] 5.1 mmol/L Normal 3.5 - 5.[address] [facility] Comment on above: Performed By: #### B MP #### [address] [address] Sodium [Moles/Vol] 131 mmol/L Low 136 - 145 [facility] Comment on above: Performed By: #### B MP #### [address] [address] Urea nitrogen [Mass/Vol] 38 mg/dL High 6 - 23 [facility] Comment on above: Performed By: #### B MP #### [address] [address] ANION GAP Canceled Normal [facility] Comment on above: Order Comment: TEST BASIC METABOLIC PANEL WAS CANCELLED, 11/09/2022 19:03 DUPLICATE ORDER. Performed By: #### B MP #### [address] [address] BICARBONATE Canceled Normal [facility] Comment on above: Order Comment: TEST BASIC METABOLIC PANEL WAS CANCELLED, 11/09/2022 19:03 DUPLICATE ORDER. Performed By: #### B MP #### [address] [address] CALCIUM Canceled Normal [facility] Comment on above: Order Comment: TEST BASIC METABOLIC PANEL WAS CANCELLED, 11/09/2022 19:03 DUPLICATE ORDER. Performed By: #### B MP #### [address] [address] CHLORIDE Canceled Normal [facility] Comment on above: Order Comment: TEST BASIC METABOLIC PANEL WAS CANCELLED, 11/09/2022 19:03 DUPLICATE ORDER. Performed By: #### B MP #### [address] [address] CREATININE Canceled Normal [facility] Comment on above: Order Comment: TEST BASIC METABOLIC PANEL WAS CANCELLED, 11/09/2022 19:03 DUPLICATE ORDER. Performed By: #### B MP #### [address] [address] eGFR FEMALE Canceled Normal [facility] Comment on above: Order Comment: TEST BASIC METABOLIC PANEL WAS CANCELLED, 11/09/2022 19:03 DUPLICATE ORDER. Result Comment: CALC ULATIONS OF ESTIMATED GFR ARE PERFORMED USING THE 2020 CKD-EPI STUDY REFIT EQUATION WITHOUT THE RACE VARIABLE FOR THE IDMS-TRACEABLE CREATININE METHODS. https://jasn.asnjournals.org/content/early/ASN.2020 232122 Performed By: #### B MP #### [address] [address] eGFR MALE Canceled Normal [facility] Comment on above: Order Comment: TEST BASIC METABOLIC PANEL WAS CANCELLED, 11/09/2022 19:03 DUPLICATE ORDER. Result Comment: CALC ULATIONS OF ESTIMATED GFR ARE PERFORMED USING THE 2020 CKD-EPI STUDY REFIT EQUATION WITHOUT THE RACE VARIABLE FOR THE IDMS-TRACEABLE CREATININE METHODS. https://jasn.asnjournals.org/content/early//ASN.2020 265915 Performed By: #### B MP #### [address] [address] GLUCOSE Canceled Normal [facility] Comment on above: Order Comment: TEST BASIC METABOLIC PANEL WAS CANCELLED, 11/09/2022 19:03 DUPLICATE ORDER. Performed By: #### B MP #### [address] [address] POTASSIUM Canceled Normal [facility] Comment on above: Order Comment: TEST BASIC METABOLIC PANEL WAS CANCELLED, 11/09/2022 19:03 DUPLICATE ORDER. Performed By: #### B MP #### [address] [address] SODIUM Canceled Normal [facility] Comment on above: Order Comment: TEST BASIC METABOLIC PANEL WAS CANCELLED, 11/09/2022 19:03 DUPLICATE ORDER. Performed By: #### B MP #### [address] [address] UREA NITROGEN Canceled Normal [facility] Comment on above: Order Comment: TEST BASIC METABOLIC PANEL WAS CANCELLED, 11/09/2022 19:03 DUPLICATE ORDER. Performed By: #### B MP #### [address] [address] C Reactive Protein, Serumon 11-09-2022 CRP [Mass/Vol] 1.93 mg/dL Abnormal -[facility] Work Phone: Comment on above: REF VALUE< 1.00 C-REACTIVE PROTEINon 023 C-REACTIVE PROTEIN 1.93 mg/dL Abnormal [facility] Comment on above: Result Comment: REF VALUE < 1.00 Performed By: #### C RP #### [address] [address] C-REACTIVE PROTEIN Canceled Normal [facility] Comment on above: Order Comment: TEST C-REACTIVE PROTEIN WAS CANCELLED, 11/09/2022 19:03 DUPLICATE ORDER. Performed By: #### C RP #### [address] [address] CBC AND DIFFERENTIALon 11-09 % AUTOMATED IMMATURE GRAN 3.6 % High 0.0 - 0.9 [facility] Comment on above: Result Comment: Yaquelin ture Granulocyte Count (IG) includes promyelocytes, myelocytes and metamyelocytes but does not include bands. Percent differential counts (%) should be interpreted in the context of the absolute cell counts (cells/L). Performed By: #### C BCDF #### [address] [address] Basophils (Bld) [#/Vol] 0.12 10*3/uL High 0.00 - 0.1 0 [facility] Comment on above: Performed By: #### C BCDF #### [address] [address] Basophils/100 WBC (Bld) 1.2 % Normal 0.0 - 2.0 [facility] Comment on above: Performed By: #### C BCDF #### [address] [address] Eosinophils (Bld) [#/Vol] 0.12 10*3/uL Normal 0.00 - 0.40 [facility] Comment on above: Performed By: #### C BCDF #### [address] [address] Eosinophils/100 WBC (Bld) 1.2 % Normal 0.0 - 6.0 [facility] Comment on above: Performed By: #### C BCDF #### [address] [address] Erythrocyte distribution width (RBC) [Ratio] 11.8 % Normal 11.5 - 14.5 [facility] Comment on above: Performed By: #### C BCDF #### [address] [address] Hematocrit (Bld) [Volume fraction] 33.8 % Low 41.0 - 52.0 [facility] Comment on above: Performed By: #### C BCDF #### [address] [address] Hemoglobin (Bld) [Mass/Vol] 11.6 g/dL Low 13.5 - 17.5 [facility] Comment on above: Performed By: #### C BCDF #### [address] [address] Lymphocytes (Bld) [#/Vol] 1.58 10*3/uL Normal 0.80 - 3.00 [facility] Comment on above: Performed By: #### C BCDF #### [address] [address] Lymphocytes/100 WBC (Bld) 16.0 % Normal 13.0 - 44.0 [facility] Comment on above: Performed By: #### C BCDF #### [address] [address] MCHC (RBC) [Mass/Vol] 34.3 g/dL Normal 32.0 - 36.0 [facility] Comment on above: Performed By: #### C BCDF #### [address] [address] MCV (RBC) [Entitic vol] 106 fL High 80 - 100 [facility] Comment on above: Performed By: #### C BCDF #### [address] [address] Monocytes (Bld) [#/Vol] 0.65 10*3/uL Normal 0.05 - 0.8 0 [facility] Comment on above: Performed By: #### C BCDF #### [address] [address] Monocytes/100 WBC (Bld) 6.6 % Normal 2.0 - 10.0 [facility] Comment on above: Performed By: #### C BCDF #### [address] [address] Neutrophils (Bld) [#/Vol] 7.04 10*3/uL High 1.60 - 5.50 [facility] Comment on above: Result Comment: Perc ent differential counts (%) should be interpreted in the context of the absolute cell counts (cells/L). Performed By: #### C BCDF #### [address] [address] Neutrophils/100 WBC (Bld) 71.4 % Normal 40.0 - 80.0 [facility] Comment on above: Performed By: #### C BCDF #### [address] [address] Platelets (Bld) [#/Vol] 311 10*3/uL Normal 150 - 450 [facility] Comment on above: Performed By: #### C BCDF #### [address] [address] RBC 3.20 x10E12/L Low 4.50 - 5.90 [facility] Comment on above: Performed By: #### C BCDF #### [address] [address] WBC (Bld) [#/Vol] 9.9 10*3/uL Normal 4.4 - 11.3 [facility] Comment on above: Performed By: #### C BCDF #### [address] [address] % AUTOMATED IMMATURE GRAN Canceled Normal [facility] Comment on above: Order Comment: TEST CBC AND DIFFERENTIAL WAS CANCELLED, 11/09/2022 19:03 DUPLICATE ORDER. Result Comment: Yaquelin ture Granulocyte Count (IG) includes promyelocytes, myelocytes and metamyelocytes but does not include bands. Percent differential counts (%) should be interpreted in the context of the absolute cell counts (cells/L). Performed By: #### C BCDF #### [address] [address] % BASOPHIL Canceled Normal [facility] Comment on above: Order Comment: TEST CBC AND DIFFERENTIAL WAS CANCELLED, 11/09/2022 19:03 DUPLICATE ORDER. Performed By: #### C BCDF #### [address] [address] % EOSINOPHIL Canceled Normal [facility] Comment on above: Order Comment: TEST CBC AND DIFFERENTIAL WAS CANCELLED, 11/09/2022 19:03 DUPLICATE ORDER. Performed By: #### C BCDF #### [address] [address] % LYMPHOCYTE Canceled Normal [facility] Comment on above: Order Comment: TEST CBC AND DIFFERENTIAL WAS CANCELLED, 11/09/2022 19:03 DUPLICATE ORDER. Performed By: #### C BCDF #### [address] [address] % MONOCYTE Canceled Normal [facility] Comment on above: Order Comment: TEST CBC AND DIFFERENTIAL WAS CANCELLED, 11/09/2022 19:03 DUPLICATE ORDER. Performed By: #### C BCDF #### [address] [address] % NEUTROPHIL Canceled Normal [facility] Comment on above: Order Comment: TEST CBC AND DIFFERENTIAL WAS CANCELLED, 11/09/2022 19:03 DUPLICATE ORDER. Performed By: #### C BCDF #### [address] [address] BASOPHIL Canceled Normal [facility] Comment on above: Order Comment: TEST CBC AND DIFFERENTIAL WAS CANCELLED, 11/09/2022 19:03 DUPLICATE ORDER. Performed By: #### C BCDF #### [address] [address] DIFFERENTIAL Canceled Normal [facility] Comment on above: Order Comment: TEST CBC AND DIFFERENTIAL WAS CANCELLED, 11/09/2022 19:03 DUPLICATE ORDER. Performed By: #### C BCDF #### [address] [address] EOSINOPHIL Canceled Normal [facility] Comment on above: Order Comment: TEST CBC AND DIFFERENTIAL WAS CANCELLED, 11/09/2022 19:03 DUPLICATE ORDER. Performed By: #### C BCDF #### [address] [address] HCT Canceled Normal [facility] Comment on above: Order Comment: TEST CBC AND DIFFERENTIAL WAS CANCELLED, 11/09/2022 19:03 DUPLICATE ORDER. Performed By: #### C BCDF #### [address] [address] HGB Canceled Normal [facility] Comment on above: Order Comment: TEST CBC AND DIFFERENTIAL WAS CANCELLED, 11/09/2022 19:03 DUPLICATE ORDER. Performed By: #### C BCDF #### [address] [address] LYMPHOCYTE Canceled Normal [facility] Comment on above: Order Comment: TEST CBC AND DIFFERENTIAL WAS CANCELLED, 11/09/2022 19:03 DUPLICATE ORDER. Performed By: #### C BCDF #### [place] [address] MCHC Canceled Normal [facility] Comment on above: Order Comment: TEST CBC AND DIFFERENTIAL WAS CANCELLED, 11/09/2022 19:03 DUPLICATE ORDER. Performed By: #### C BCDF #### [address] [address] MCV Canceled Normal [facility] Comment on above: Order Comment: TEST CBC AND DIFFERENTIAL WAS CANCELLED, 11/09/2022 19:03 DUPLICATE ORDER. Performed By: #### C BCDF #### [place] [id number] MONOCYTE Canceled Normal [facility] Comment on above: Order Comment: TEST CBC AND DIFFERENTIAL WAS CANCELLED, 11/09/2022 19:03 DUPLICATE ORDER. Performed By: #### C BCDF #### [place] [id number] NEUTROPHIL Canceled Normal [facility] Comment on above: Order Comment: TEST CBC AND DIFFERENTIAL WAS CANCELLED, 11/09/2022 19:03 DUPLICATE ORDER. Result Comment: Perc ent differential counts (%) should be interpreted in the context of the absolute cell counts (cells/L). Performed By: #### C BCDF #### [address] [address] PLT Canceled Normal [facility] Comment on above: Order Comment: TEST CBC AND DIFFERENTIAL WAS CANCELLED, 11/09/2022 19:03 DUPLICATE ORDER. Performed By: #### C BCDF #### [address] [address] RBC Canceled Normal [facility] Comment on above: Order Comment: TEST CBC AND DIFFERENTIAL WAS CANCELLED, 11/09/2022 19:03 DUPLICATE ORDER. Performed By: #### C BCDF #### [address] [address] RDW-CV Canceled Normal [facility] Comment on above: Order Comment: TEST CBC AND DIFFERENTIAL WAS CANCELLED, 11/09/2022 19:03 DUPLICATE ORDER. Performed By: #### C BCDF #### [address] [address] WBC Canceled Normal [facility] Comment on above: Order Comment: TEST CBC AND DIFFERENTIAL WAS CANCELLED, 11/09/2022 19:03 DUPLICATE ORDER. Performed By: #### C BCDF #### [address] [address] Complete Blood Count + Diffe rentialon 11-09-2022 Basophils/100 WBC (Bld) 1.2 % 0.0 - 2.0 [facility] Work Phone: Erythrocyte distribution width (RBC) [Ratio] 11.8 % See Below [facility] Work Phone: Comment on above: Reference Range: 11. 5 - 14.5 Hematocrit (Bld) [Volume fraction] 33.8 % below low threshold See Below [facility] Work Phone: Comment on above: Reference Range: 41. 0 - 52.0 Hemoglobin (Bld) [Mass/Vol] 11.6 g/dL below low threshold See Below [facility] Work Phone: Comment on above: Reference Range: 13. 5 - 17.5 Lymphocytes/100 WBC (Bld) 16.0 % See Below [facility] Work Phone: Comment on above: Reference Range: 13. 0 - 44.0 MCHC (RBC) [Mass/Vol] 34.3 g/dL See Below [facility] Work Phone: Comment on above: Reference Range: 32. 0 - 36.0 MCV (RBC) [Entitic vol] 106 fL above ms gh threshold 80 - 100 [facility] Work Phone: Monocytes/100 WBC (Bld) 6.6 % 2.0 - 10.0 [facility] Work Phone: Neutrophils/100 WBC (Bld) 71.4 % See Below [facility] Work Phone: Comment on above: Reference Range: 40. 0 - 80.0 Platelets (Bld) [#/Vol] 311 10*3/uL 150 - 450 [facility] Work Phone: RBC (Bld) [#/Vol] 3.20 {x10E12/L} below low threshold See Below [facility] Work Phone: Comment on above: Reference Range: 4.5 0 - 5.90 WBC (Bld) [#/Vol] 9.9 10*3/uL 4.4 - 11.3 [facility] Work Phone: Complete Blood Count + Differential 0.12 {x10E9/L} See Below [facility] Work Phone: Comment on above: Reference Range: 0.0 0 - 0.10 Reference Range: 0.0 0 - 0.40 Complete Blood Count + Differential 0.65 {x10E9/L} See Below [facility] Work Phone: Comment on above: Reference Range: 0.0 5 - 0.80 Complete Blood Count + Differential 1.58 {x10E9/L} See Below [facility] Work Phone: Comment on above: Reference Range: 0.8 0 - 3.00 Complete Blood Count + Differential 7.04 {x10E9/L} above high threshold See Below [facility] Work Phone: Comment on above: Reference Range: 1.6 0 - 5.50 Percent differential counts (%) should be interpreted in the context of the absolute cell counts (cells/L). Complete Blood Count + Differential 1.2 % 0.0 - 6.0 [facility] Work Phone: Complete Blood Count + Differential 3.6 % above high threshold 0.0 - 0.9 [facility] Work Phone: Comment on above: Immature Granulocyte Count (IG) includes promyelocytes, myelocytes and metamyelocytes but does not include bands. Percent differential counts (%) should be interpreted in the context of the absolute cell counts (cells/L). Cult, Misc + smearon 023 Bacteria identified Cx Nom (Unsp spec) Abnormal [facility] Work Phone: FOOT COMPLETE, MIN 3 VIEWSon 11-09-2022 FOOT COMPLETE, MIN 3 VIEWS Patient Name: STEVO GERMAIN STUDY: FOOT; COMPLETE, MIN 3 VIEWS; Right; 11/09/2022 4:09 pm INDICATION: right 2nd toe infection & heel infection, r/o free air . COMPARISON: None. ACCESSION NUMBER(S): [id number] ORDERING CLINICIAN: CHRISTOPHER GALINDO FINDINGS: Minimal superficial [...] Electronically signed by: FRANSISCA POWELL MD Normal [facility] Laboratory - Chemistry and C hemistry - challengeon 11-09-2022 Anion gap [Moles/Vol] 15 mmol/L 10 - 20 [facility] Work Phone: Calcium [Mass/Vol] 9.4 mg/dL 8.6 - 10.3 [facility] Work Phone: Chloride [Moles/Vol] 97 mmol/L below low threshold 98 - 107 [facility] Work Phone: CO2 [Moles/Vol] 24 mmol/L 21 - 32 [facility] Work Phone: Creatinine [Mass/Vol] 2.08 mg/dL above high threshold See Below [facility] Work Phone: Comment on above: Reference Range: 0.5 0 - 1.30 Glucose [Mass/Vol] 260 mg/dL above high threshold 74 - 99 [facility] Work Phone: Potassium [Moles/Vol] 5.1 mmol/L 3.5 - 5.3 [facility] Work Phone: Sodium [Moles/Vol] 131 mmol/L below low threshold 136 - 145 [facility] Work Phone: Urea nitrogen [Mass/Vol] 38 mg/dL above high threshold 6 - 23 [facility] Work Phone: MISCELLANEOUS CULT./SM.BACT. on 11-09-2022 MISCELLANEOUS CULT./SM.BACT. GAS Called- RB to FLYNN WILLS MA, 11/10/2022 16:23 PATIENT: STEVO GERMAIN LOCATION: [address]#: [id number] : 48 AGE: SEX: M ORDERED BY: CHRISTOPHER GALINDO SOURCE: WOUND/ABSCESS COLLECTED: 11/09/22 15:44 ANTIBIOTICS AT RISSA.: RECEIVED : 11/10/22 00:57 SITE: RT SECOND TOE R E S U L T S GRAM STAIN FINAL 11/10/22 13:16 1+ GRANULOCYTES. 3+ GRAM (+) COCCI MISCELLANEOUS CULT./SM.BACT. FINAL 11/12/22 12:46 ISOLATE1 : Group A streptococcus 4+ Normal [facility] Comment on above: Performed By: #### M [facility] #### [facility] [address] [place] [address] No Panel Informationon 11-09 33 {mL/min/1.73m2} Abnormal >90 [facility] Work Phone: Comment on above: CALCULATIONS OF TELMA MATED GFR ARE PERFORMED USING THE 2020 CKD-EPI STUDY REFIT EQUATION WITHOUT THE RACE VARIABLE FOR THE IDMS-TRACEABLE CREATININE METHODS.https://jasn.asnjournals.org/content/early// ASN.8960984270 Provider Note - ED v3on 10-30 Provider [...] Infection: DRAI (more content not included)... Normal [facility] Radiologyon 11-09-2022 XR Foot 3 Views Normal [facility] Work Phone: SEDIMENTATION RATE, ERYTHROC YTEon 11-09-2022 SEDIMENTATION RATE, ERYTHROCYTE 46 mm/h High 0 - 20 [facility] Comment on above: Performed By: #### E SRWS #### [address] [address] SEDIMENTATION RATE, ERYTHROCYTE Canceled Normal [facility] Comment on above: Order Comment: TEST SEDIMENTATION RATE, ERYTHROCYTE WAS CANCELLED, 11/09/2022 19:03 DUPLICATE ORDER. Performed By: #### E SRWS #### [address] [address] Sedimentation Rate, Erythroc yteon 11-09-2022 ESR (Bld) [...] pulmonary disease); BANDAR = N; Sent To: [employer]; Last Updated By: HITbills; 09/20/2022 2:23:32 PM Start: Nebulizer/Tubing/Mouthpi araceli KIT; USE DIRECTED Rx By: Phyllis Mae; Dispense: 0 Days ; #:1 Kit; Refill: 3; For: Chronic cough, COPD (chronic obstructive pulmonary disease); BANDAR = N; Sent To: [employer]; Last Updated By: HIT[employer]ills; 09/20/2022 2:23:33 PM DM2 (diabetes mellitus, type [...] By:Phyllis Mae; Effective Date:20Sep2022; Administered by: Daiana Barksdale CURBSTONE SETTER: 09/20/2022 1:43:00 PM; Last Updated By: Daiana Barksdale; 09/20/2022 1:43:45 PM Essential tremor Renew: Primidone 50 MG Oral Tablet; TAKE 1 TABLET AT BEDTIME Rx By: Phyllis Mae; Dispense: 30 Days ; #:30 Tablet; Refill: 11; For: Essential tremor; BANDAR = N; Verified Transmission to [facility] #[id number]; Last Updated By: Nicole MoralesElectronifie; 09/20/2022 1:28:13 PM GERD (gastroesophageal reflux disease), Intermittent epigastric abdominal pain Start: Sucralfate 1 GM Oral Tablet; TAKE 1 TABLET 4 TIMES DAILY, BEFORE MEALS AND AT BEDTIME Rx By: Phyllis Mae; Dispense: 30 Days ; #:120 Tablet; Refill: 0; For: GERD (gastroesophageal reflux disease), Intermittent epigastric abdominal pain; BANDAR = N; [id number]; Last Updated By: Alexx Morales; 09/20/2022 1:28:13 PM Mixed hyperlipidemia Renew: Lovastatin 10 MG Oral Tablet; TAKE 1 TABLET DAILY Rx By: Phyllis Mae; Dispense: 90 Days ; #:90 Tablet; Refill: 3; For: Mixed hyperlipidemia; BANDAR = N; [id number]; Last Updated By: Andrew [employer]; 09/20/2022 1:28:09 PM Patient Discussion/Summary 1/5 MON FOR ABDOMINAL PAIN. 3 MON FOR LABS. 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 CMP, HGBA1C Provider Impressions OFFERED TO DO EKG, CXR , PT REFUSED . PT WANTS TO WAIT FOR [facility] VISIT NEXT WEEK. ADVISED TO GO TO [...] WORSE. HAS OC IN 1 WEEK WITH [facility] AND WANT TO WAIT UNTIL THAT VISIT [...] no wheezing (more content not included)... Normal [facility] PHQ-2 VITALSon 09-20-2022 Adult depression screening assessment No [facility] Work Phone: Tobacco Screening.on 022 Fall risk assessment a) No falls within the last year [facility] Work Phone: Tobacco use status CP b) No [facility] Work Phone: Therapy Communicationon 04-29 Therapy Communication Message STEVO LANIERONE was (D/C)- last seen: 05/04/22. Pt self-discharged [...] necessary. Signatures Electronically signed by : Lorena Ochoa, PT; May 10 2022 2:25PM EST (Author) Normal [facility] PT Progress Noteon 2 PT Progress Note No report was sent Normal [facility] Therapy Communicationon 07-1 Therapy Communication Message STEVO GERMAIN no showed today 05/09/22. Patient did not show for appointment this date, called and spoke with she stated she was not aware of appointment due to it was not on her list, confirmed next two appointments. Signatures Electronically signed by : Quin Li PTA; May 09 2022 12:23PM EST (Author) Normal [facility] PT Progress Noteon 2 PT Progress Note No report was sent Normal [facility] Therapy Communicationon 07-0 Therapy Communication Message STEVO GERMAIN canceled today 05/06/22. Patient called to cancel no reason provided per manager front. Signatures Electronically signed by : Quin Li PTA; May 06 2022 12:08PM EST (Author) Normal [facility] PT Progress [...] POC: 4/ [employer]/Medicaid-EVAL ONLY Supervising PT: Lorena Ochoa PT, DPT, Cert DN PT Dx: M47.812; [...] code time is 29 minutes. Therapeutic exercise (18460): timed minutes 29, units 2 . NuStep [...] not included)... Normal [facility] Progress Noteon PT Progress Note No report was sent Normal [facility] Therapy Communicationon 07- Therapy Communication Message STEVO TONIO canceled today 04/29/22. Patient called to cancel. Signatures Electronically signed by : Quin Li PTA; Apr 29 2022 2:35PM EST (Author) Normal [facility] Therapy Communication Message STEVO GERMAIN canceled today 04/29/22. Patient called to cancel. Signatures Electronically signed by : Quin Li PTA; Apr 29 2022 2:34PM EST (Author) Normal [facility] PT Progress Noteon 2 PT Progress Note No report was sent [facility] Therapy Communicationon 03-31 Therapy Communication Message STEVO GERMAIN canceled today 04/25/22. Per manager front patient called to cancel due to broke [...] POC: 3/ [employer]/Medicaid-EVAL ONLY Supervising PT: Lorena Ochoa PT, DPT, Cert DN PT Dx: M47.812; [...] code time is 30 minutes. Therapeutic exercise (59728): timed minutes 30, units 2 . NuStep [...] Mini squats (more content not included)... Normal [facility] Progress Noteon 2 PT Progress Note [...] POC: 2/ [employer]/Medicaid-EVAL ONLY Supervising PT: Lorena Ochoa PT, DPT, Cert DN PT Dx: M47.812; Z86.73; M62.81; Onset Date: 2020 Subjective Patient reports:. He reported 7/10 pain after treatment. Home program performing as directed: Yes. Precautions: Fall Risk: moderate history of stroke;. Treatment Time in clinic started at 11:30 Time in clinic ended at 12:18 Total time in clinic is 48 minutes. Total timed code time is 42 minutes. Therapeutic exercise (77207): timed minutes 42, units 3 . NuStep [...] x 10 (N) . Provided today:. 04/18/22 [id number] HEP handout provided and reviewed patient demonstrated good understanding. 'Scores and Scales' Signatures Electronically signed by : Quin Li LINING REPAIRER; Apr 18 2022 12:31PM EST (Author) Electronically signed by : Lorena Ochoa PT; Apr 18 2022 1:57PM EST Normal [facility] PT Initial Evaluationon PT Initial Evaluation Therapy [...] by the patient and spouse. Assessment Mr. GERMAIN presents with signs and symptoms consistent with [...] POC: 1/ [employer]/Medicaid-EVAL ONLY Supervising PT: Lorena Ochoa PT, DPT, Cert DN PT Dx: M47.812; [...] symptoms; BANDAR = N; Verified Transmission to [facility] #6175; Last Updated By: [employer]In; 03/29/2022 11:57:57 AM COPD (chronic obstructive pulmonary disease) Renew: Ventolin HFA 108 (90 Base) MCG/ACT Inhalation Aerosol Solution (Albuterol Sulfate HFA); USE 2 PUFFS EVERY 6 HOURS FOR SHORTNESS OF BREATH OR WHEEZING Rx By: Phyllis Mae; Dispense: 0 Days ; #:1 X 8 GM Inhaler; Refill: 11;For: COPD (chronic obstructive pulmonary disease); BANDAR = N; Verified Transmission to [facility] #6175; Last Updated By: [employer]In; 03/29/2022 11:57:54 AM Essential tremor, H/O ETOH abuse, H/O: CVA (cerebrovascular accident) Neurology - General Referral Evaluation and Treatment Evaluate AND Treat, PT WANTS TO GO TO [facility] Status: Hold For - Scheduling Requested for: 29Mar2022 Ordered;For: Essential tremor, H/O ETOH abuse, H/O: CVA (cerebrovascular accident); Ordered By: Phyllis Mae Performed: Due: [id number] H/O: CVA (cerebrovascular accident) Renew: Clopidogrel Bisulfate 75 MG Oral Tablet; Take 1 tablet daily Rx By: Phyllis Mae; Dispense: 0 Days ; #:90 Tablet; Refill: 3;For: H/O: CVA (cerebrovascular accident); BANDAR = N; Verified Transmission to [facility] #6175; Last Updated By: Andrew [employer]; 03/29/2022 11:57:50 AM Hypertension associated with type 2 diabetes mellitus Renew: Labetalol HCl - 100 MG Oral Tablet; TAKE 1 TABLET EVERY 12 HOURS DAILY Rx By: Phyllis Mae; Dispense: 90 Days ; #:180 Tablet; Refill: 3;For: Hypertension associated with type 2 diabetes mellitus; BANDAR = N; Verified Transmission to [facility] #6175; Last Updated By: Andrew [employer]; 03/29/2022 11:57:54 AM Hypertriglyceridemia Renew: Fenofibrate 54 MG Oral Tablet; TAKE 1 TABLET DAILY Rx By: Phyllis Mae; Dispense: 90 Days ; #:90 Tablet; Refill: 3;For: Hypertriglyceridemia; BANDAR = N; Verified Transmission to [facility] #6175; Last Updated By: [employer]In; 03/29/2022 11:57:54 AM Patient Discussion/Summary 3 MON. CMP, HGBA1C(TO [facility]) Provider Impressions ADVISED FOR FALL PRECAUTION, ADVISED [...] no in (more content not included)... Normal [employer] Tobacco Screening.on 022 Fall risk assessment a) No falls within the last year [facility] Work Phone: Tobacco use status [facility] a) Yes [facility] Work Phone: Tobacco Screening. Yes [facility] Work Phone: Therapy Communicationon 02-27 Therapy Communication Message STEVO GERMAIN canceled today . Reason F. Signatures Electronically signed by : Rayo Herrera, PT; Mar 15 2022 12:07PM EST (Author) Normal [employer] Office Visit (Internal Medic ine)on 03-01-2022 Follow-up [...] Evaluate AND Treat, PT WANTS IT AT [facility] Status: Complete Done: [id number] Ordered; For: DJD (degenerative joint disease), cervical, H/O: CVA (cerebrovascular accident), Muscle weakness of lower extremity; Ordered By: Phyllis Mae Performed: Due: [id number]; Last Updated By: Jillian Can; 03/01/2022 2:39:34 PM CALL [facility] AND SET UP PT APPOINTMENT Monday03/15/2022 AT 1130AM ARRIVE AT 1115AM. PT WANTS AT [facility] AND WILL CALL BACK TO SCHEDULE AFTER SHE CHECKS HER SCHEDULE Hyperlipemia Renew: Atorvastatin Calcium 20 MG Oral Tablet; TAKE 1 TABLET DAILY Rx By: Phyllis Mae; Dispense: 90 Days ; #:90 Tablet; Refill: 3; For: Hyperlipemia; BANDAR = N; Verified Transmission to [facility] #7844; Last Updated By: Alexx Morales; 03/01/2022 1:38:38 PM Patient Discussion/Summary 1 MON FAX THE RESULT OF CAROTID DOPPLER AND U/S OF ABDOMINAL AORTA DR MARTINEZ AT [facility] Provider Impressions TEST RESULTS [...] (K80.20) Chroni (more content not included)... Normal [employer] Tobacco Screening.on 022 Fall risk assessment a) No falls within the last year [facility] Work Phone: Tobacco use status [facility] a) Yes [facility] Work Phone: Tobacco Screening. Yes [facility] Work Phone: Medicare Annual [...] risk factors: none. LAB F/U (DONE BY SAFETY ASSOCIATE ) . MEDICARE WELLNESS EXAM.. CRF , [...] mellitus ( (more content not included)... Normal [facility] Tobacco Screening.on Fall risk assessment b) One or more fall s in the last year [facility] Work Phone: Tobacco use status [facility] a) Yes [facility] Work Phone: Tobacco Screening. Yes [facility] Work Phone: Tobacco Screening.on 021 Fall risk assessment b) One or more fall s in the last year [facility] Work Phone: Tobacco use status [facility] a) Yes [facility] Work Phone: Tobacco Screening. Yes [facility] Work Phone: Complete Blood Count + Paty beltran 09-29-2021 Basophils/100 WBC (Bld) 1.7 % 0.0 - 2.0 [facility] Work Phone: Erythrocyte distribution width (RBC) [Ratio] 13.7 % See Below [facility] Work Phone: Comment on above: Reference Range: 11. 5 - 14.5 Hematocrit (Bld) [Volume fraction] 42.5 % See Below [facility] Work Phone: Comment on above: Reference Range: 41. 0 - 52.0 Hemoglobin (Bld) [Mass/Vol] 14.0 g/dL See Below [facility] [facility] Work Phone: Comment on above: Reference Range: 13. 5 - 17.5 Lymphocytes/100 WBC (Bld) 38.5 % See Below [facility] Work Phone: Comment on above: Reference Range: 13. 0 - 44.0 MCHC (RBC) [Mass/Vol] 32.9 g/dL See Below [facility] Work Phone: Comment on above: Reference Range: 32. 0 - 36.0 MCV (RBC) [Entitic vol] 110 fL above hi gh threshold 80 - 100 [facility] Work Phone: Monocytes/100 WBC (Bld) 10.2 % 2.0 - 10.0 [facility] Work Phone: Neutrophils/100 WBC (Bld) 45.4 % See Below [facility] Work Phone: Comment on above: Reference Range: 40. 0 - 80.0 Platelets (Bld) [#/Vol] 235 10*3/uL 150 - 450 [facility] Work Phone: RBC (Bld) [#/Vol] 3.86 {x10E12/L} below low threshold See Below [facility] Work Phone: Comment on above: Reference Range: 4.5 0 - 5.90 WBC (Bld) [#/Vol] 7.1 10*3/uL 4.4 - 11.3 [facility] Work Phone: Complete Blood Count + Differential 0.10 {x10E9/L} See Below [facility] Work Phone: Comment on above: Reference Range: 0.0 0 - 0.10 Complete Blood Count + Differential 0.30 {x10E9/L} See Below [facility] Work Phone: Comment on above: Reference Range: 0.0 0 - 0.40 Complete Blood Count + Differential 0.70 {x10E9/L} See Below [facility] Work Phone: Comment on above: Reference Range: 0.0 5 - 0.80 Complete Blood Count + Differential 2.70 {x10E9/L} See Below [facility] Work Phone: Comment on above: Reference Range: 0.8 0 - 3.00 Complete Blood Count + Differential 3.20 {x10E9/L} See Below [facility] Work Phone: Comment on above: Reference Range: 1.6 0 - 5.50 Percent differential counts (%) should be interpreted in the context of the absolute cell counts (cells/L). Complete Blood Count + Differential 4.2 % 0.0 - 6.0 [facility] Work Phone: Complete Blood Count + Differential 0.1 {/100_WBC} [facility] Work Phone: Laboratory - Chemistry and C hemistry - challengeon 09-29-2021 Albumin BCP dye [Mass/Vol] 4.2 g/dL 3.4 - 5.0 [facility] Work Phone: ALP [Catalytic activity/Vol] 82 U/L 33 - 136 [facility] Work Phone: ALT With P-5'-P [Catalytic activity/Vol] 13 U/L 10 - 52 [facility] Work Phone: Comment on above: Patients treated wit h Sulfasalazine may generate falsely decreased results for ALT. Anion gap [Moles/Vol] 18 mmol/L 10 - 20 [facility] Work Phone: AST With P-5'-P [Catalytic activity/Vol] 16 U/L 9 - 39 [facility] Work Phone: Bilirubin [Mass/Vol] 0.4 mg/dL 0.0 - 1.2 [facility] Work Phone: Calcium [Mass/Vol] 9.7 mg/dL 8.6 - 10.3 [facility] Work Phone: Chloride [Moles/Vol] 104 mmol/L 98 - 107 [facility] Work Phone: CO2 [Moles/Vol] 22 mmol/L 21 - 32 [facility] Work Phone: Creatinine [Mass/Vol] 1.71 mg/dL above high threshold See Below [facility] Work Phone: Comment on above: Reference Range: 0.5 0 - 1.30 Glucose [Mass/Vol] 149 mg/dL above high threshold 74 - 99 [facility] Work Phone: Potassium [Moles/Vol] 4.4 mmol/L 3.5 - 5.3 [facility] Work Phone: Protein [Mass/Vol] 7.3 g/dL 6.4 - 8.2 [facility] Work Phone: Sodium [Moles/Vol] 140 mmol/L 136 - 145 [facility] Work Phone: Urea nitrogen [Mass/Vol] 24 mg/dL above high threshold 6 - 23 [facility] Work Phone: Lipid Panelon 09-29-2021 Cholesterol [Mass/Vol] 217 mg/dL above hig h threshold 0 - 199 [facility] Work Phone: Comment on above: . AGE [...] dosing. Cholesterol in HDL [Mass/Vol] 47.0 mg/dL [facility] Work Phone: Comment on above: . AGE VERY LOW LOW N ORMAL HIGH 0-19 Y < 35 < 40 40-45 ---- 20-24 Y ---- < 40 >45 ---- >24 Y ---- < 40 40-60 >60. Cholesterol in LDL [Mass/Vol] - 0 - 99 [facility] Work Phone: Comment on above: . NEAR [...] sterol in HDL [Mass ratio] 4.6 {ratio} [facility] Work Phone: Comment on above: REF VALUESDESIRABLE < 3.4HIGH RISK > 5.0 Triglyceride [Mass/Vol] 582 mg/dL above hi gh threshold 0 - 149 [facility] Work Phone: Comment on above: . AGE [...] Lipid Panel SEE COMMENT 0 - 40 [facility] Work Phone: Comment on above: Unable to calculate VLDL. No Panel Informationon 09-29 47 {mL/min/1.73m2} Abnormal >60 [facility] Work Phone: Comment on above: CALCULATIONS OF TELMA MATED GFR ARE PERFORMED USING THE MDRD STUDY EQUATION FOR THE IDMS-TRACEABLE CREATININE METHODS. CLIN CHEM 2007;53:766-72 39 {mL/min/1.73m2} Abnormal >60 [facility] Work Phone: NORMAL [facility] Work Phone: Tobacco Screening.on 021 Fall risk assessment b) One or more fall s in the last year [facility] Work Phone: Tobacco use status [facility] a) Yes [facility] Work Phone: Tobacco Screening. Yes [facility] Work Phone: Folate, Serumon 09-08-2021 Folate [Mass/Vol] 11.3 ng/mL >5.0 [facility] Work Phone: Comment on above: Low <3.4Borderline 3 .4-5.0Normal >5.0. Patients receiving more than 5 mg/day of biotin may have interference in test results. A sample should be taken no sooner than eight hours after previous dose. Contact the testing laboratory for additional information. Magnesium, Serumon Magnesium [Mass/Vol] 2.03 mg/dL See Below [facility] Work Phone: Comment on above: Reference Range: 1.6 0 - 2.40 Vitamin B12, Serumon 021 Cobalamin (Vitamin B12) [Mass/Vol] 397 pg/mL 211 - 911 [facility] Work Phone: Tobacco Screening.on Fall risk assessment b) One or more fall s in the last year [facility] Work Phone: Tobacco use status [facility] a) Yes [facility] Work Phone: Tobacco Screening. Yes [facility] Work Phone: Albumin, Serumon 08-16-2021 Albumin BCP dye [Mass/Vol] 4.2 g/dL 3.4 - 5.0 [facility] [address] [place] Work Phone: Bicarbonate, Serumon 021 CO2 [Moles/Vol] 21 mmol/L 21 - 32 [facility] [address] [place] Work Phone: Blood Urea Nitrogen, Serumon 08-16-2021 Urea nitrogen [Mass/Vol] 33 mg/dL above high threshold 6 - 23 [facility] [address] [place] Work Phone: Calcium, Serumon 08-16-2021 Calcium [Mass/Vol] 9.4 mg/dL 8.6 - 10.3 [facility] [address] [place] Work Phone: Chloride, Serumon 08-16-2021 Chloride [Moles/Vol] 105 mmol/L 98 - 107 [facility] [address] [place] Work Phone: Creatinine, Serumon 08-16-20 21 Creatinine [Mass/Vol] 1.85 mg/dL above high threshold See Below [facility] [address] [place] Work Phone: Comment on above: Reference Range: 0.5 0 - 1.30 Creatinine, Serum 44 {mL/min/1.73m2} Abnormal >60 [facility] [address] [place] Work Phone: Comment on above: CALCULATIONS OF TELMA MATED GFR ARE PERFORMED USING THE MDRD STUDY EQUATION FOR THE IDMS-TRACEABLE CREATININE METHODS. CLIN CHEM 2007;53:766-72 Creatinine, Serum 36 {mL/min/1.73m2} Abnormal >60 [facility] [address] [place] Work Phone: Laboratory - Chemistry and C hemistry - challengeon 08-16-2021 Anion gap [Moles/Vol] 18 mmol/L 10 - 20 [facility] [address] [place] Work Phone: Potassium [Moles/Vol] 4.9 mmol/L 3.5 - 5.3 [facility] [address] [place] Work Phone: Magnesium, Serumon 1 Magnesium [Mass/Vol] 2.04 mg/dL See Below [facility] [address] [place] Work Phone: Comment on above: Reference Range: 1.6 0 - 2.40 Parathormone Intact, Serumon 08-16-2021 Parathyrin.intact [Mass/Vol] 22.3 pg/mL See Below [facility] [address] [place] Work Phone: Comment on above: Reference Range: 18. 5 - 88.0 Phosphorus, Serumon 08-16-20 21 Phosphate [Mass/Vol] 5.0 mg/dL above high threshold 2.5 - 4.9 [facility] [address] [place] Work Phone: Comment on above: The performance cassi acteristics of phosphorus testing in heparinized plasma have been validated by the individual laboratory site where testing is performed. Testing on heparinized plasma is not approved by the FDA; however, such approval is not necessary. Sodium, Serumon 08-16-2021 Sodium [Moles/Vol] 139 mmol/L 136 - 145 [facility] [address] [place] Work Phone: Total Protein, Urine Spoton 08-16-2021 Creatinine (U) [Mass/Vol] Canceled [facility] [address] [place] Work Phone: Protein (U) [Mass/Vol] Canceled [facility] [address] [place] Work Phone: Protein/Creatinine (U) [Ratio] Canceled [facility] [address] [place] Work Phone: HbA1c (Bld) [Mass fraction]O rdered By: Akila Carroll on 08-03-2021 Interpretation and review of laboratory results Normal [facility] POC Hemoglobin [id number] By : Akila Carroll on 08-03-2021 HbA1c (Bld) [Mass fraction] 5.9 % 4.0 - 6.0 % [facility] Tobacco Screening.on 021 Fall risk assessment a) No falls within the last year [facility] Work Phone: Tobacco use status [facility] a) Yes M [facility] Work Phone: Tobacco Screening. Yes [facility] Work Phone: Laboratory - Drug toxicology on 06-24-2021 Amphetamines Screen Ql Negative Cutoff 20 [facility] Work Phone: Barbiturates Screen Ql Negative Cutoff 50 [facility] Work Phone: Benzodiazepines Screen Ql Negative Cutoff 50 [facility] Work Phone: Cannabinoids Screen Ql Negative Cutoff 20 [facility] Work Phone: Cocaine Screen Ql Negative Cutoff 20 [facility] Work Phone: Methadone Screen Ql Negative Cutoff 25 [facility] Work Phone: Methamphetamine Ql Negative Cutoff 20 [facility] Work Phone: Opiates Screen Ql Negative Cutoff 20 [facility] Work Phone: oxyCODONE Ql Negative Cutoff 20 [facility] Work Phone: Phencyclidine Screen Ql Negative Cutoff 10 M [facility] Work Phone: No Panel Informationon 06-24 Annotation comment [Interpretation] Narrative See Note [facility] Work Phone: Comment on above: INTERPRETIVE INFORMA [...] developed and its performance characteristics determined by [facility]. It has not been cleared or approved by the [place] Food and Drug Administration. This test was performed in a CLIA certified laboratory and is intended for clinical purposes.Performed By: [facility] [place] [id number] Director: Laurie Chavez MD Negative Cutoff 1 [facility] Work Phone: Complete Blood Count + Diffe devin 06-21-2021 Basophils/100 WBC (Bld) 2.2 % 0.0 - 2.0 [facility] Work Phone: Erythrocyte distribution width (RBC) [Ratio] 17.3 % above high threshold See Below [facility] Work Phone: Comment on above: Reference Range: 11. 5 - 14.5 Hematocrit (Bld) [Volume fraction] 37.6 % below low threshold See Below [facility] Work Phone: Comment on above: Reference Range: 41. 0 - 52.0 Hemoglobin (Bld) [Mass/Vol] 12.4 g/dL below low threshold See Below [facility] Work Phone: Comment on above: Reference Range: 13. 5 - 17.5 Lymphocytes/100 WBC (Bld) 27.3 % See Below [facility] Work Phone: Comment on above: Reference Range: 13. 0 - 44.0 MCHC (RBC) [Mass/Vol] 32.9 g/dL See Below [facility] Work Phone: Comment on above: Reference Range: 32. 0 - 36.0 MCV (RBC) [Entitic vol] 108 fL above hi gh threshold 80 - 100 [facility] Work Phone: Monocytes/100 WBC (Bld) 7.2 % 2.0 - 10.0 [facility] Work Phone: Neutrophils/100 WBC (Bld) 56.5 % See Below [facility] Work Phone: Comment on above: Reference Range: 40. 0 - 80.0 Platelets (Bld) [#/Vol] 282 10*3/uL 150 - 450 [facility] Work Phone: RBC (Bld) [#/Vol] 3.49 {x10E12/L} below low threshold See Below [facility] Work Phone: Comment on above: Reference Range: 4.5 0 - 5.90 WBC (Bld) [#/Vol] 6.4 10*3/uL 4.4 - 11.3 [facility] Work Phone: Complete Blood Count + Differential 0.10 {x10E9/L} See Below [facility] Work Phone: Comment on above: Reference Range: 0.0 0 - 0.10 Complete Blood Count + Differential 0.40 {x10E9/L} See Below [facility] Work Phone: Comment on above: Reference Range: 0.0 0 - 0.40 Complete Blood Count + Differential 0.50 {x10E9/L} See Below [facility] Work Phone: Comment on above: Reference Range: 0.0 5 - 0.80 Complete Blood Count + Differential 1.80 {x10E9/L} See Below [facility] Work Phone: Comment on above: Reference Range: 0.8 0 - 3.00 Complete Blood Count + Differential 3.60 {x10E9/L} See Below [facility] Work Phone: Comment on above: Reference Range: 1.6 0 - 5.50 Percent differential counts (%) should be interpreted in the context of the absolute cell counts (cells/L). Complete Blood Count + Differential 6.8 % 0.0 - 6.0 [facility] Work Phone: Complete Blood Count + Differential 0.1 {/100_WBC} [facility] Work Phone: Ferritin, Serumon 08-23-2021 Ferritin [Mass/Vol] 183 ug/L 20 - 300 [facility] Work Phone: Folate, Serumon 06-21-2021 Folate [Mass/Vol] 10.2 ng/mL >5.0 [facility] Work Phone: Comment on above: Low <3.4Borderline 3 .4-5.0Normal >5.0. Patients receiving more than 5 mg/day of biotin may have interference in test results. A sample should be taken no sooner than eight hours after previous dose. Contact the testing laboratory for additional information. Laboratory - Chemistry and C hemistry - challengeon 06-21-2021 Albumin BCP dye [Mass/Vol] 3.9 g/dL 3.4 - 5.0 [facility] Work Phone: ALP [Catalytic activity/Vol] 103 U/L 33 - 136 [facility] Work Phone: ALT With P-5'-P [Catalytic activity/Vol] 12 U/L 10 - 52 [facility] Work Phone: Comment on above: Patients treated wit h Sulfasalazine may generate falsely decreased results for ALT. Anion gap [Moles/Vol] 13 mmol/L 10 - 20 [facility] Work Phone: AST With P-5'-P [Catalytic activity/Vol] 14 U/L 9 - 39 [facility] Work Phone: Bilirubin [Mass/Vol] 0.3 mg/dL 0.0 - 1.2 [facility] Work Phone: Calcium [Mass/Vol] 9.5 mg/dL 8.6 - 10.3 [facility] Work Phone: Chloride [Moles/Vol] 105 mmol/L 98 - 107 [facility] Work Phone: CO2 [Moles/Vol] 22 mmol/L 21 - 32 [facility] Work Phone: Creatinine [Mass/Vol] 1.38 mg/dL above high threshold See Below [facility] Work Phone: Comment on above: Reference Range: 0.5 0 - 1.30 Glucose [Mass/Vol] 164 mg/dL above high threshold 74 - 99 [facility] Work Phone: Iron [Mass/Vol] 60 ug/dL 35 - 150 [facility] Work Phone: Iron binding capacity [Mass/Vol] 336 ug/dL 240 - 445 [facility] Work Phone: Potassium [Moles/Vol] 4.5 mmol/L 3.5 - 5.3 [facility] Work Phone: Protein [Mass/Vol] 6.9 g/dL 6.4 - 8.2 [facility] Work Phone: Sodium [Moles/Vol] 135 mmol/L below low threshold 136 - 145 [facility] Work Phone: Urea nitrogen [Mass/Vol] 27 mg/dL above high threshold 6 - 23 [facility] Work Phone: Magnesium, Serumon 1 Magnesium [Mass/Vol] 1.94 mg/dL See Below [facility] Work Phone: Comment on above: Reference Range: 1.6 0 - 2.40 No Panel Informationon 06-21 62 {mL/min/1.73m2} >60 [facility] Work Phone: Comment on above: CALCULATIONS OF TELMA MATED GFR ARE PERFORMED USING THE MDRD STUDY EQUATION FOR THE IDMS-TRACEABLE CREATININE METHODS. CLIN CHEM 2007;53:766-72 51 {mL/min/1.73m2} Abnormal >60 [facility] Work Phone: 18 % below low threshold 25 - 45 [facility] Work Phone: NORMAL [facility] Work Phone: Radiologyon 06-21-2021 XR Cervical spine 4 Views Normal [facility] Work Phone: No Panel Informationon 06-14 Normal [facility] Work Phone: Tobacco Screening.on 021 Fall risk assessment b) One or more fall s in the last year [facility] Work Phone: Tobacco use status [facility] a) Yes M [facility] Work Phone: Tobacco Screening. Yes [facility] Work Phone: Glucose (Bld) [Mass/Vol]Orde red By: Bryce Alvarez on 05-11-2021 Glucose [Mass/Vol] 156 mg/dL High 65 - 99 mg/dL [facility] Interpretation and review of laboratory results Abnormal [facility] Glucose [Mass/Vol] 64 mg/dL Low 65 - 99 mg/dL [facility] Interpretation and review of laboratory results Abnormal [facility] Glucose [Mass/Vol] 81 mg/dL 65 - 99 mg/dL [facility] Interpretation and review of laboratory results Normal [facility] Glucose (Bld) [Mass/Vol]Orde red By: Bryce Alvarez on 05-10-2021 Glucose [Mass/Vol] 146 mg/dL High 65 - 99 mg/dL [facility] Interpretation and review of laboratory results Abnormal [facility] Glucose [Mass/Vol] 86 mg/dL 65 - 99 mg/dL [facility] Interpretation and review of laboratory results Normal [facility] Glucose [Mass/Vol] 198 mg/dL High 65 - 99 mg/dL [facility] Interpretation and review of laboratory results Abnormal [facility] Glucose [Mass/Vol] 134 mg/dL High 65 - 99 mg/dL [facility] Interpretation and review of laboratory results Abnormal [facility] Glucose [Mass/Vol] 97 mg/dL 65 - 99 mg/dL [facility] Interpretation and review of laboratory results Normal [facility] Basic metabolic 2000 panelOr dered By: Bryce Alvarez on 05-09-2021 Anion gap [Moles/Vol] 10 mmol/L 10 - 2 0 mmol/L [facility] Calcium [Mass/Vol] 8.5 mg/dL 8.4 - 10. 2 mg/dL [facility] Chloride [Moles/Vol] 110 mmol/L High 98 - 10 8 mmol/L [facility] Creatinine [Mass/Vol] 1.57 mg/dL High 0.80 - 1.30 [facility] GFR/1.73 sq M.predicted CKD-EPI (S/P/Bld) [Vol rate/Area] 43 Low >=60 mL/min/1.73 m2 [facility] Glucose [Mass/Vol] 121 mg/dL High 65 - 99 mg/dL [facility] HCO3 [Moles/Vol] 23 mmol/L 21 - 32 mmol/L [facility] Interpretation and review of laboratory results Abnormal [facility] Potassium [Moles/Vol] 4.4 mmol/L 3.5 - 5.1 mmol/L [facility] Sodium [Moles/Vol] 139 mmol/L 135 - 145 mmol/L [facility] Urea nitrogen [Mass/Vol] 26 mg/dL High 8 - 25 mg/dL [facility] Urea nitrogen/Creatinine [Mass ratio] 16.6 mg/mg [facility] The eGFR should be u sed for monitoring renal function only and not for medication dosing. [facility] CBC WITH AUTO DIFFERENTIALOr dered By: Bryce Alvarez on 05-09-2021 Basophils (Bld) [#/Vol] 0.06 10*3/uL [facility] Basophils/100 WBC (Bld) 0.8 % [facility] Eosinophils (Bld) [#/Vol] 0.31 10*3/uL [facility] Eosinophils/100 WBC (Bld) 4.1 % [facility] Erythrocyte distribution width (RBC) [Entitic vol] 14.1 % 11.6 - 14.8 % [facility] Hematocrit (Bld) [Volume fraction] 26.4 % Low 41.0 - 53.0 % [facility] Hemoglobin (Bld) [Mass/Vol] 8.6 g/dL Low 13.5 - 17.5 g/dL [facility] Immature granulocytes (Bld) [#/Vol] 0.09 10*3/uL [facility] Immature granulocytes/100 WBC (Bld) 1.20 % [facility] Comment on above: The IG parameter is the percentage of metamyelocytes, myelocytes and promyelocytes. An immature granulocyte count (IG) of 1% or more suggests the possibility of infection, an IG count of 3% is very likely related to an infection. Interpretation and review of laboratory results Abnormal [facility] Lymphocytes (Bld) [#/Vol] 2.55 10*3/uL [facility] Lymphocytes/100 WBC (Bld) 33.7 % [facility] MCH (RBC) [Entitic mass] 34.0 pg 26.0 - 34.0 pg [facility] MCHC (RBC) [Mass/Vol] 32.6 g/dL 31.0 - 37.0 g/dL [facility] MCV (RBC) [Entitic vol] 104.3 fL High 80.0 - 100.0 fL [facility] Monocytes (Bld) [#/Vol] 0.92 10*3/uL High [facility] Monocytes/100 WBC (Bld) 12.2 % [facility] Neutrophils (Bld) [#/Vol] 3.63 10*3/uL [facility] Neutrophils/100 WBC (Bld) 48.0 % [facility] Nucleated RBC (Bld) [#/Vol] 0.00 10*3/uL [facility] Nucleated RBC/100 WBC (Bld) [Ratio] 0.0 % [facility] Platelet mean volume (Bld) [Entitic vol] 10.9 fL 9.4 - 12.4 fL [facility] Platelets (Bld) [#/Vol] 265 10*3/uL [facility] RBC (Bld) [#/Vol] 2.53 10*6/uL Low [facility] WBC (Bld) [#/Vol] 7.56 10*3/uL [facility] Glucose (Bld) [Mass/Vol]Orde red By: Bryce Alvarez on 05-09-2021 Glucose [Mass/Vol] 239 mg/dL High 65 - 99 mg/dL [facility] Interpretation and review of laboratory results Abnormal [facility] Glucose [Mass/Vol] 93 mg/dL 65 - 99 mg/dL [facility] Interpretation and review of laboratory results Normal [facility] Glucose [Mass/Vol] 157 mg/dL High 65 - 99 mg/dL [facility] Interpretation and review of laboratory results Abnormal [facility] Glucose [Mass/Vol] 82 mg/dL 65 - 99 mg/dL [facility] Interpretation and review of laboratory results Normal [facility] Hepatic function 2000 panelO rdered By: Bryce Alvarez on 05-09-2021 Albumin [Mass/Vol] 2.5 g/dL Low 3.2 - 5.2 g/dL [facility] ALP [Catalytic activity/Vol] 156 U/L High 40 - 150 U/L [facility] ALT [Catalytic activity/Vol] 29 U/L 14 - 65 U/L [facility] AST [Catalytic activity/Vol] 21 U/L 0 - 45 U/L [facility] Bilirubin [Mass/Vol] 0.1 mg/dL 0.0 - 1 .3 mg/dL [facility] Bilirubin.conjugated [Mass/Vol] mg/dL 0.0 - 0.4 mg/dL [facility] Interpretation and review of laboratory results Abnormal [facility] Protein [Mass/Vol] 6.3 g/dL 6.0 - 8.0 g/dL [facility] Magnesium LevelOrdered By: Elton Alvarez on 05-09-2021 Magnesium [Mass/Vol] 1.8 mg/dL 1.6 - 2 .4 mg/dL [facility] Magnesium [Mass/Vol]Ordered By: Bryce Alvarez on 05-09-2021 Interpretation and review of laboratory results Normal [facility] Basic metabolic 2000 panelOr dered By: Bryce Alvarez on 05-08-2021 Anion gap [Moles/Vol] 15 mmol/L 10 - 2 0 mmol/L [facility] Calcium [Mass/Vol] 8.6 mg/dL 8.4 - 10. 2 mg/dL [facility] Chloride [Moles/Vol] 111 mmol/L High 98 - 10 8 mmol/L [facility] Creatinine [Mass/Vol] 1.66 mg/dL High 0.80 - 1.30 [facility] GFR/1.73 sq M.predicted CKD-EPI (S/P/Bld) [Vol rate/Area] 41 Low >=60 mL/min/1.73 m2 [facility] Glucose [Mass/Vol] 141 mg/dL High 65 - 99 mg/dL [facility] HCO3 [Moles/Vol] 19 mmol/L Low 21 - 32 mmol/L [facility] Interpretation and review of laboratory results Abnormal [facility] Potassium [Moles/Vol] 4.5 mmol/L 3.5 - 5.1 mmol/L [facility] Sodium [Moles/Vol] 140 mmol/L 135 - 145 mmol/L [facility] Urea nitrogen [Mass/Vol] 28 mg/dL High 8 - 25 mg/dL [facility] Urea nitrogen/Creatinine [Mass ratio] 16.9 mg/mg [facility] The eGFR should be u sed for monitoring renal function only and not for medication dosing. [facility] CBC WITH AUTO DIFFERENTIALOr dered By: Bryce Alvarez on 05-08-2021 Basophils (Bld) [#/Vol] 0.10 10*3/uL [facility] Basophils/100 WBC (Bld) 1.1 % [facility] Eosinophils (Bld) [#/Vol] 0.31 10*3/uL [facility] Eosinophils/100 WBC (Bld) 3.5 % [facility] Erythrocyte distribution width (RBC) [Entitic vol] 14.3 % 11.6 - 14.8 % [facility] Hematocrit (Bld) [Volume fraction] 26.7 % Low 41.0 - 53.0 % [facility] Hemoglobin (Bld) [Mass/Vol] 8.5 g/dL Low 13.5 - 17.5 g/dL [facility] Immature granulocytes (Bld) [#/Vol] 0.06 10*3/uL [facility] Immature granulocytes/100 WBC (Bld) 0.70 % [facility] Comment on above: The IG parameter is the percentage of metamyelocytes, myelocytes and promyelocytes. An immature granulocyte count (IG) of 1% or more suggests the possibility of infection, an IG count of 3% is very likely related to an infection. Interpretation and review of laboratory results Abnormal [facility] Lymphocytes (Bld) [#/Vol] 2.37 10*3/uL [facility] Lymphocytes/100 WBC (Bld) 26.7 % [facility] MCH (RBC) [Entitic mass] 34.0 pg 26.0 - 34.0 pg [facility] MCHC (RBC) [Mass/Vol] 31.8 g/dL 31.0 - 37.0 g/dL [facility] MCV (RBC) [Entitic vol] 106.8 fL High 80.0 - 100.0 fL [facility] Monocytes (Bld) [#/Vol] 1.04 10*3/uL High [facility] Monocytes/100 WBC (Bld) 11.7 % [facility] Neutrophils (Bld) [#/Vol] 5.01 10*3/uL [facility] Neutrophils/100 WBC (Bld) 56.3 % [facility] Nucleated RBC (Bld) [#/Vol] 0.00 10*3/uL [facility] Nucleated RBC/100 WBC (Bld) [Ratio] 0.0 % [facility] Platelet mean volume (Bld) [Entitic vol] 11.3 fL 9.4 - 12.4 fL [facility] Platelets (Bld) [#/Vol] 264 10*3/uL [facility] RBC (Bld) [#/Vol] 2.50 10*6/uL Low [facility] WBC (Bld) [#/Vol] 8.89 10*3/uL [facility] Glucose (Bld) [Mass/Vol]Orde red By: Bryce Alvarez on 05-08-2021 Glucose [Mass/Vol] 145 mg/dL High 65 - 99 mg/dL [facility] Interpretation and review of laboratory results Abnormal [facility] Glucose [Mass/Vol] 163 mg/dL High 65 - 99 mg/dL [facility] Interpretation and review of laboratory results Abnormal [facility] Glucose [Mass/Vol] 92 mg/dL 65 - 99 mg/dL [facility] Interpretation and review of laboratory results Normal [facility] Glucose [Mass/Vol] 83 mg/dL 65 - 99 mg/dL [facility] Interpretation and review of laboratory results Normal [facility] Hepatic function 2000 panelO rdered By: Bryce Alvarez on 05-08-2021 Albumin [Mass/Vol] 2.6 g/dL Low 3.2 - 5.2 g/dL [facility] ALP [Catalytic activity/Vol] 168 U/L High 40 - 150 U/L [facility] ALT [Catalytic activity/Vol] 30 U/L 14 - 65 U/L [facility] AST [Catalytic activity/Vol] 18 U/L 0 - 45 U/L [facility] Bilirubin [Mass/Vol] 0.2 mg/dL 0.0 - 1 .3 mg/dL [facility] Bilirubin.conjugated [Mass/Vol] mg/dL 0.0 - 0.4 mg/dL [facility] Interpretation and review of laboratory results Abnormal [facility] Protein [Mass/Vol] 6.5 g/dL 6.0 - 8.0 g/dL [facility] Magnesium LevelOrdered By: Elton Alvarez on 05-08-2021 Magnesium [Mass/Vol] 1.9 mg/dL 1.6 - 2 .4 mg/dL [facility] Magnesium [Mass/Vol]Ordered By: Bryce Alvarez on 05-08-2021 Interpretation and review of laboratory results Normal [facility] Basic metabolic 2000 panelOr dered By: Bryce Alvarez on 05-07-2021 Anion gap [Moles/Vol] 10 mmol/L 10 - 2 0 mmol/L [facility] Calcium [Mass/Vol] 9.0 mg/dL 8.4 - 10. 2 mg/dL [facility] Chloride [Moles/Vol] 111 mmol/L High 98 - 10 8 mmol/L [facility] Creatinine [Mass/Vol] 1.68 mg/dL High 0.80 - 1.30 [facility] GFR/1.73 sq M.predicted CKD-EPI (S/P/Bld) [Vol rate/Area] 40 Low >=60 mL/min/1.73 m2 [facility] Glucose [Mass/Vol] 62 mg/dL Low 65 - 99 mg/dL [facility] Comment on above: [id number] CALLED ATTENT ION RESULT ON 05/07/2021 @ 0521 TO AND READ BACK BY [id number] in A37 HCO3 [Moles/Vol] 25 mmol/L 21 - 32 mmol/L [facility] Interpretation and review of laboratory results Abnormal [facility] Potassium [Moles/Vol] 4.6 mmol/L 3.5 - 5.1 mmol/L [facility] Sodium [Moles/Vol] 141 mmol/L 135 - 145 mmol/L [facility] Urea nitrogen [Mass/Vol] 27 mg/dL High 8 - 25 mg/dL [facility] Urea nitrogen/Creatinine [Mass ratio] 16.1 mg/mg [facility] The eGFR should be u sed for monitoring renal function only and not for medication dosing. [facility] CBC WITH AUTO DIFFERENTIALOr dered By: Bryce Alvarez on 05-07-2021 Basophils (Bld) [#/Vol] 0.08 10*3/uL [facility] Basophils/100 WBC (Bld) 1.1 % [facility] Eosinophils (Bld) [#/Vol] 0.30 10*3/uL [facility] Eosinophils/100 WBC (Bld) 4.1 % [facility] Erythrocyte distribution width (RBC) [Entitic vol] 14.2 % 11.6 - 14.8 % [facility] Hematocrit (Bld) [Volume fraction] 27.8 % Low 41.0 - 53.0 % [facility] Hemoglobin (Bld) [Mass/Vol] 9.0 g/dL Low 13.5 - 17.5 g/dL [facility] Immature granulocytes (Bld) [#/Vol] 0.10 10*3/uL [facility] Immature granulocytes/100 WBC (Bld) 1.40 % [facility] Comment on above: The IG parameter is the percentage of metamyelocytes, myelocytes and promyelocytes. An immature granulocyte count (IG) of 1% or more suggests the possibility of infection, an IG count of 3% is very likely related to an infection. Interpretation and review of laboratory results Abnormal [facility] Lymphocytes (Bld) [#/Vol] 2.65 10*3/uL [facility] Lymphocytes/100 WBC (Bld) 36.4 % [facility] MCH (RBC) [Entitic mass] 33.6 pg 26.0 - 34.0 pg [facility] MCHC (RBC) [Mass/Vol] 32.4 g/dL 31.0 - 37.0 g/dL [facility] MCV (RBC) [Entitic vol] 103.7 fL High 80.0 - 100.0 fL [facility] Monocytes (Bld) [#/Vol] 0.94 10*3/uL High [facility] Monocytes/100 WBC (Bld) 12.9 % [facility] Neutrophils (Bld) [#/Vol] 3.21 10*3/uL [facility] Neutrophils/100 WBC (Bld) 44.1 % [facility] Nucleated RBC (Bld) [#/Vol] 0.00 10*3/uL [facility] Nucleated RBC/100 WBC (Bld) [Ratio] 0.0 % [facility] Platelet mean volume (Bld) [Entitic vol] 10.6 fL 9.4 - 12.4 fL [facility] Platelets (Bld) [#/Vol] 279 10*3/uL [facility] RBC (Bld) [#/Vol] 2.68 10*6/uL Low [facility] WBC (Bld) [#/Vol] 7.28 10*3/uL [facility] Glucose (Bld) [Mass/Vol]Orde red By: Bryce Alvarez on 05-07-2021 Glucose [Mass/Vol] 145 mg/dL High 65 - 99 mg/dL [facility] Interpretation and review of laboratory results Abnormal [facility] Glucose [Mass/Vol] 72 mg/dL 65 - 99 mg/dL [facility] Interpretation and review of laboratory results Normal [facility] Glucose [Mass/Vol] 170 mg/dL High 65 - 99 mg/dL [facility] Interpretation and review of laboratory results Abnormal [facility] Glucose [Mass/Vol] 82 mg/dL 65 - 99 mg/dL [facility] Interpretation and review of laboratory results Normal [facility] Glucose [Mass/Vol] 93 mg/dL 65 - 99 mg/dL [facility] Interpretation and review of laboratory results Normal [facility] Hepatic function 2000 panelO rdered By: Bryce Alvarez on 05-07-2021 Albumin [Mass/Vol] 2.7 g/dL Low 3.2 - 5.2 g/dL [facility] ALP [Catalytic activity/Vol] 164 U/L High 40 - 150 U/L [facility] ALT [Catalytic activity/Vol] 30 U/L 14 - 65 U/L [facility] AST [Catalytic activity/Vol] 24 U/L 0 - 45 U/L [facility] Bilirubin [Mass/Vol] 0.2 mg/dL 0.0 - 1 .3 mg/dL [facility] Bilirubin.conjugated [Mass/Vol] 0.1 mg/dL 0.0 - 0.4 mg/dL [facility] Interpretation and review of laboratory results Abnormal [facility] Protein [Mass/Vol] 6.7 g/dL 6.0 - 8.0 g/dL [facility] Magnesium LevelOrdered By: Elton Alvarez on 05-07-2021 Magnesium [Mass/Vol] 2.0 mg/dL 1.6 - 2 .4 mg/dL [facility] Magnesium [Mass/Vol]Ordered By: Bryce Alvarez on 05-07-2021 Interpretation and review of laboratory results Normal [facility] RADIOLOGY SCANSOrdered By: Cyndy Morales on 05-07-2021 Ordered by an unspecified provider. [facility] Glucose (Bld) [Mass/Vol]Orde red By: Bryce Alvarez on 05-06-2021 Glucose [Mass/Vol] 96 mg/dL 65 - 99 mg/dL [facility] Interpretation and review of laboratory results Normal [facility] Glucose [Mass/Vol] 107 mg/dL High 65 - 99 mg/dL [facility] Interpretation and review of laboratory results Abnormal [facility] Glucose [Mass/Vol] 104 mg/dL High 65 - 99 mg/dL [facility] Interpretation and review of laboratory results Abnormal [facility] Glucose [Mass/Vol] 73 mg/dL 65 - 99 mg/dL [facility] Interpretation and review of laboratory results Normal [facility] Basic metabolic 2000 panelOr dered By: Bryce Alvarez on 05-05-2021 Anion gap [Moles/Vol] 10 mmol/L 10 - 2 0 mmol/L [facility] Calcium [Mass/Vol] 8.9 mg/dL 8.4 - 10. 2 mg/dL [facility] Chloride [Moles/Vol] 109 mmol/L High 98 - 10 8 mmol/L [facility] Creatinine [Mass/Vol] 1.52 mg/dL High 0.80 - 1.30 [facility] GFR/1.73 sq M.predicted CKD-EPI (S/P/Bld) [Vol rate/Area] 45 Low >=60 mL/min/1.73 m2 [facility] Glucose [Mass/Vol] 122 mg/dL High 65 - 99 mg/dL [facility] HCO3 [Moles/Vol] 26 mmol/L 21 - 32 mmol/L [facility] Interpretation and review of laboratory results Abnormal [facility] Potassium [Moles/Vol] 4.7 mmol/L 3.5 - 5.1 mmol/L [facility] Sodium [Moles/Vol] 140 mmol/L 135 - 145 mmol/L [facility] Urea nitrogen [Mass/Vol] 19 mg/dL 8 - 25 mg/dL [facility] Urea nitrogen/Creatinine [Mass ratio] 12.5 mg/mg [facility] The eGFR should be u sed for monitoring renal function only and not for medication dosing. [facility] CBC WITH AUTO DIFFERENTIALOr dered By: Bryce Alvarez on 05-05-2021 Basophils (Bld) [#/Vol] 0.06 10*3/uL [facility] Basophils/100 WBC (Bld) 0.7 % [facility] Eosinophils (Bld) [#/Vol] 0.34 10*3/uL [facility] Eosinophils/100 WBC (Bld) 3.9 % [facility] Erythrocyte distribution width (RBC) [Entitic vol] 14.4 % 11.6 - 14.8 % [facility] Hematocrit (Bld) [Volume fraction] 28.9 % Low 41.0 - 53.0 % [facility] Hemoglobin (Bld) [Mass/Vol] 9.2 g/dL Low 13.5 - 17.5 g/dL [facility] Immature granulocytes (Bld) [#/Vol] 0.10 10*3/uL [facility] Immature granulocytes/100 WBC (Bld) 1.10 % [facility] Comment on above: The IG parameter is the percentage of metamyelocytes, myelocytes and promyelocytes. An immature granulocyte count (IG) of 1% or more suggests the possibility of infection, an IG count of 3% is very likely related to an infection. Interpretation and review of laboratory results Abnormal [facility] Lymphocytes (Bld) [#/Vol] 2.30 10*3/uL [facility] Lymphocytes/100 WBC (Bld) 26.3 % [facility] MCH (RBC) [Entitic mass] 33.6 pg 26.0 - 34.0 pg [facility] MCHC (RBC) [Mass/Vol] 31.8 g/dL 31.0 - 37.0 g/dL [facility] MCV (RBC) [Entitic vol] 105.5 fL High 80.0 - 100.0 fL [facility] Monocytes (Bld) [#/Vol] 0.93 10*3/uL High [facility] Monocytes/100 WBC (Bld) 10.7 % [facility] Neutrophils (Bld) [#/Vol] 5.00 10*3/uL [facility] Neutrophils/100 WBC (Bld) 57.3 % [facility] Nucleated RBC (Bld) [#/Vol] 0.00 10*3/uL [facility] Nucleated RBC/100 WBC (Bld) [Ratio] 0.0 % [facility] Platelet mean volume (Bld) [Entitic vol] 11.1 fL 9.4 - 12.4 fL [facility] Platelets (Bld) [#/Vol] 294 10*3/uL [facility] RBC (Bld) [#/Vol] 2.74 10*6/uL Low [facility] WBC (Bld) [#/Vol] 8.73 10*3/uL [facility] Glucose (Bld) [Mass/Vol]Orde red By: Bryce Alvarez on 05-05-2021 Glucose [Mass/Vol] 90 mg/dL 65 - 99 mg/dL [facility] Interpretation and review of laboratory results Normal [facility] Glucose [Mass/Vol] 149 mg/dL High 65 - 99 mg/dL [facility] Interpretation and review of laboratory results Abnormal [facility] Glucose [Mass/Vol] 98 mg/dL 65 - 99 mg/dL [facility] Interpretation and review of laboratory results Normal [facility] Glucose [Mass/Vol] 128 mg/dL High 65 - 99 mg/dL [facility] Interpretation and review of laboratory results Abnormal [facility] RENAL AND BLADDEROrdered By: Bryce Alvarez on 05-05-2021 No hydronephrosis or nephrolithiasis. Nonspecific trace perinephric fluid. Moderate postvoid residual volume, 107 mL. [employer] Workstation ID: [id number] [facility] EXAMINATION: US RENAL AND BLADDER HISTORY: [...] Moderate postvoid residual volume of 107 mL. [facility] Interface, Rad In Fu ji Speechq [...] fluid. Moderate postvoid residual volume, [address] Workstation ID: [id number] [facility] Basic metabolic 2000 panelOr dered By: Bryce Alvarez on 05-04-2021 Anion gap [Moles/Vol] 9 mmol/L Low 10 - 2 0 mmol/L [facility] Calcium [Mass/Vol] 9.0 mg/dL 8.4 - 10. 2 mg/dL [facility] Chloride [Moles/Vol] 112 mmol/L High 98 - 10 8 mmol/L [facility] Creatinine [Mass/Vol] 1.56 mg/dL High 0.80 - 1.30 [facility] GFR/1.73 sq M.predicted CKD-EPI (S/P/Bld) [Vol rate/Area] 44 Low >=60 mL/min/1.73 m2 [facility] Glucose [Mass/Vol] 70 mg/dL 65 - 99 mg/dL [facility] Comment on above: [id number] CALLED ATTENT ION RESULT ON 05/04/2021 @ 0620 TO AND READ BACK BY [id number] in TOWER3 HCO3 [Moles/Vol] 25 mmol/L 21 - 32 mmol/L [facility] Interpretation and review of laboratory results Abnormal [facility] Potassium [Moles/Vol] 4.5 mmol/L 3.5 - 5.1 mmol/L [facility] Sodium [Moles/Vol] 141 mmol/L 135 - 145 mmol/L [facility] Urea nitrogen [Mass/Vol] 19 mg/dL 8 - 25 mg/dL [facility] Urea nitrogen/Creatinine [Mass ratio] 12.2 mg/mg [facility] The eGFR should be u sed for monitoring renal function only and not for medication dosing. [facility] CBC WITH AUTO DIFFERENTIALOr dered By: Bryce Alvarez on 05-04-2021 Basophils (Bld) [#/Vol] 0.07 10*3/uL [facility] Basophils/100 WBC (Bld) 1.0 % [facility] Eosinophils (Bld) [#/Vol] 0.35 10*3/uL [facility] Eosinophils/100 WBC (Bld) 5.0 % [facility] Erythrocyte distribution width (RBC) [Entitic vol] 14.3 % 11.6 - 14.8 % [facility] Hematocrit (Bld) [Volume fraction] 27.9 % Low 41.0 - 53.0 % [facility] Hemoglobin (Bld) [Mass/Vol] 8.9 g/dL Low 13.5 - 17.5 g/dL [facility] Immature granulocytes (Bld) [#/Vol] 0.10 10*3/uL [facility] Immature granulocytes/100 WBC (Bld) 1.40 % [facility] Comment on above: The IG parameter is the percentage of metamyelocytes, myelocytes and promyelocytes. An immature granulocyte count (IG) of 1% or more suggests the possibility of infection, an IG count of 3% is very likely related to an infection. Interpretation and review of laboratory results Abnormal [facility] Lymphocytes (Bld) [#/Vol] 2.57 10*3/uL [facility] Lymphocytes/100 WBC (Bld) 36.7 % [facility] MCH (RBC) [Entitic mass] 33.6 pg 26.0 - 34.0 pg [facility] MCHC (RBC) [Mass/Vol] 31.9 g/dL 31.0 - 37.0 g/dL [facility] MCV (RBC) [Entitic vol] 105.3 fL High 80.0 - 100.0 fL [facility] Monocytes (Bld) [#/Vol] 0.92 10*3/uL High [facility] Monocytes/100 WBC (Bld) 13.1 % [facility] Neutrophils (Bld) [#/Vol] 2.99 10*3/uL [facility] Neutrophils/100 WBC (Bld) 42.8 % [facility] Nucleated RBC (Bld) [#/Vol] 0.00 10*3/uL [facility] Nucleated RBC/100 WBC (Bld) [Ratio] 0.0 % [facility] Platelet mean volume (Bld) [Entitic vol] 10.9 fL 9.4 - 12.4 fL [facility] Platelets (Bld) [#/Vol] 276 10*3/uL [facility] RBC (Bld) [#/Vol] 2.65 10*6/uL Low [facility] WBC (Bld) [#/Vol] 7.00 10*3/uL [facility] Glucose (Bld) [Mass/Vol]Orde red By: Bryce Alvarez on 05-04-2021 Glucose [Mass/Vol] 180 mg/dL High 65 - 99 mg/dL [facility] Interpretation and review of laboratory results Abnormal [facility] Glucose [Mass/Vol] 121 mg/dL High 65 - 99 mg/dL [facility] Interpretation and review of laboratory results Abnormal [facility] Glucose [Mass/Vol] 76 mg/dL 65 - 99 mg/dL [facility] Interpretation and review of laboratory results Normal [facility] Basic metabolic 2000 panelOr dered By: Bryce Alvarez on 05-03-2021 Anion gap [Moles/Vol] 15 mmol/L 10 - 2 0 mmol/L [facility] Calcium [Mass/Vol] 9.0 mg/dL 8.4 - 10. 2 mg/dL [facility] Chloride [Moles/Vol] 110 mmol/L High 98 - 10 8 mmol/L [facility] Creatinine [Mass/Vol] 1.56 mg/dL High 0.80 - 1.30 [facility] GFR/1.73 sq M.predicted CKD-EPI (S/P/Bld) [Vol rate/Area] 44 Low >=60 mL/min/1.73 m2 [facility] Glucose [Mass/Vol] 76 mg/dL 65 - 99 mg/dL [facility] HCO3 [Moles/Vol] 21 mmol/L 21 - 32 mmol/L [facility] Interpretation and review of laboratory results Abnormal [facility] Potassium [Moles/Vol] 4.7 mmol/L 3.5 - 5.1 mmol/L [facility] Sodium [Moles/Vol] 141 mmol/L 135 - 145 mmol/L [facility] Urea nitrogen [Mass/Vol] 19 mg/dL 8 - 25 mg/dL [facility] Urea nitrogen/Creatinine [Mass ratio] 12.2 mg/mg [facility] The eGFR should be u sed for monitoring renal function only and not for medication dosing. [facility] Creatinine [Mass/Vol]Ordered By: Melissa Collins on 05-03-2021 GFR/1.73 sq M.predicted CKD-EPI (S/P/Bld) [Vol rate/Area] 44 Low >=60 mL/min/1.73 m2 [facility] Interpretation and review of laboratory results Abnormal [facility] The eGFR should be u sed for monitoring renal function only and not for medication dosing. [facility] Creatinine, serumOrdered By: Melissa Collins on 05-03-2021 Creatinine [Mass/Vol] 1.56 mg/dL High 0.80 - 1.30 [facility] Glucose (Bld) [Mass/Vol]Orde red By: Bryce Alvarez on 05-03-2021 Glucose [Mass/Vol] 139 mg/dL High 65 - 99 mg/dL [facility] Interpretation and review of laboratory results Abnormal [facility] Glucose [Mass/Vol] 178 mg/dL High 65 - 99 mg/dL [facility] Interpretation and review of laboratory results Abnormal [facility] Glucose [Mass/Vol] 108 mg/dL High 65 - 99 mg/dL [facility] Interpretation and review of laboratory results Abnormal [facility] Glucose [Mass/Vol] 82 mg/dL 65 - 99 mg/dL [facility] Interpretation and review of laboratory results Normal [facility] Magnesium LevelOrdered By: Elton Alvarez on 05-03-2021 Magnesium [Mass/Vol] 1.8 mg/dL 1.6 - 2 .4 mg/dL [facility] Magnesium [Mass/Vol]Ordered By: Bryce Alvarez on 05-03-2021 Interpretation and review of laboratory results Normal [facility] RADIOLOGY SCANSOrdered By: Cyndy [employer] on 05-03-2021 Ordered by an unspecified provider. [facility] Vancomycin Level, RandomOrde red By: Melissa Collins on 05-03-2021 Vancomycin [Mass/Vol] 11.6 mcg/mL [facility] Vancomycin [Mass/Vol]Ordered By: Melissa Collins on 05-03-2021 No established refer ence range. [facility] Bacteria identified Aer cx N om (Unsp spec)Ordered By: Bryce Alvarez on 05-02-2021 [facility] Bacteria identified Cx Nom ( Bld)Ordered By: Geraldine Reilly on 05-02-2021 [facility] Blood Culture #1Ordered By: Geraldine Reilly on 05-02-2021 Bacteria identified Cx Nom (Bld) [facility] #[facility]Ordered By: Geraldine Reilly on 05-02-2021 Bacteria identified Cx Nom (Bld) [facility] Creatinine [Mass/Vol]Ordered By: Melissa Collins on 05-02-2021 GFR/1.73 sq M.predicted CKD-EPI (S/P/Bld) [Vol rate/Area] 55 Low >=60 mL/min/1.73 m2 [facility] Interpretation and review of laboratory results Abnormal [facility] The eGFR should be u sed for monitoring renal function only and not for medication dosing. [facility] Creatinine, serumOrdered By: Melissa Collins on 05-02-2021 Creatinine [Mass/Vol] 1.30 mg/dL 0.80 - 1.30 [facility] Glucose (Bld) [Mass/Vol]Orde red By: Bryce Alvarez on 05-02-2021 Glucose [Mass/Vol] 137 mg/dL High 65 - 99 mg/dL [facility] Interpretation and review of laboratory results Abnormal [facility] Glucose [Mass/Vol] 111 mg/dL High 65 - 99 mg/dL [facility] Interpretation and review of laboratory results Abnormal [facility] Glucose [Mass/Vol] 84 mg/dL 65 - 99 mg/dL [facility] Interpretation and review of laboratory results Normal [facility] Glucose [Mass/Vol] 78 mg/dL 65 - 99 mg/dL [facility] Interpretation and review of laboratory results Normal [facility] Magnesium LevelOrdered By: Bere Collins on 05-02-2021 Magnesium [Mass/Vol] 1.7 mg/dL 1.6 - 2 .4 mg/dL [facility] Magnesium [Mass/Vol]Ordered By: Melissa Collins on 05-02-2021 Interpretation and review of laboratory results Normal [facility] No Panel InformationOrdered By: Don Pennington on 05-02-2021 1. Open reduction an d internal fixation of acute comminuted right-sided intertrochanteric fracture with short intramedullary zeb and screws with satisfactory alignment. 2. 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 3. Negative for distal femoral fracture deformity. [employer] Workstation ID: [id number] [facility] EXAMINATION: XR HIP RIGHT 2-3 VIEWS [...] well profiled. There are changes from atherosclerosis. [facility] Todd, Rick In Abel ji Speech[employer] - 05/02/2021 3:51 PM EDT [...] 3. Negative for distal femoral fracture deformity. [employer] Workstation ID: [id number] [facility] RADIOLOGY SCANSOrdered By: [employer] on 05-02-2021 Ordered by an unspecified provider. [facility] Urine Aerobic CultureOrdered By: Bryce Alvarez on 05-02-2021 Bacteria identified Aer cx Nom (Unsp spec) No Growth (<1,000 CFU/mL) [facility] Basic metabolic 2000 panelOr dered By: Bryce Alvarez on 05-01-2021 Anion gap [Moles/Vol] 10 mmol/L 10 - 2 0 mmol/L [facility] Calcium [Mass/Vol] 9.0 mg/dL 8.4 - 10. 2 mg/dL [facility] Chloride [Moles/Vol] 112 mmol/L High 98 - 10 8 mmol/L [facility] Creatinine [Mass/Vol] 1.42 mg/dL High 0.80 - 1.30 [facility] GFR/1.73 sq M.predicted CKD-EPI (S/P/Bld) [Vol rate/Area] 49 Low >=60 mL/min/1.73 m2 [facility] Glucose [Mass/Vol] 90 mg/dL 65 - 99 mg/dL [facility] HCO3 [Moles/Vol] 25 mmol/L 21 - 32 mmol/L [facility] Interpretation and review of laboratory results Abnormal [facility] Potassium [Moles/Vol] 4.5 mmol/L 3.5 - 5.1 mmol/L [facility] Sodium [Moles/Vol] 142 mmol/L 135 - 145 mmol/L [facility] Urea nitrogen [Mass/Vol] 14 mg/dL 8 - 25 mg/dL [facility] Urea nitrogen/Creatinine [Mass ratio] 9.9 mg/mg Low [facility] The eGFR should be u sed for monitoring renal function only and not for medication dosing. [facility] CBC WITH AUTO DIFFERENTIALOr dered By: Bryce Alvarez on 05-01-2021 Basophils (Bld) [#/Vol] 0.04 10*3/uL [facility] Basophils/100 WBC (Bld) 0.7 % [facility] Eosinophils (Bld) [#/Vol] 0.48 10*3/uL [facility] Eosinophils/100 WBC (Bld) 8.2 % [facility] Erythrocyte distribution width (RBC) [Entitic vol] 14.0 % 11.6 - 14.8 % [facility] Hematocrit (Bld) [Volume fraction] 27.4 % Low 41.0 - 53.0 % [facility] Hemoglobin (Bld) [Mass/Vol] 8.7 g/dL Low 13.5 - 17.5 g/dL [facility] Immature granulocytes (Bld) [#/Vol] 0.05 10*3/uL [facility] Immature granulocytes/100 WBC (Bld) 0.90 % [facility] Comment on above: The IG parameter is the percentage of metamyelocytes, myelocytes and promyelocytes. An immature granulocyte count (IG) of 1% or more suggests the possibility of infection, an IG count of 3% is very likely related to an infection. Interpretation and review of laboratory results Abnormal [facility] Lymphocytes (Bld) [#/Vol] 2.13 10*3/uL [facility] Lymphocytes/100 WBC (Bld) 36.3 % [facility] MCH (RBC) [Entitic mass] 33.5 pg 26.0 - 34.0 pg [facility] MCHC (RBC) [Mass/Vol] 31.8 g/dL 31.0 - 37.0 g/dL [facility] MCV (RBC) [Entitic vol] 105.4 fL High 80.0 - 100.0 fL [facility] Monocytes (Bld) [#/Vol] 0.78 10*3/uL [facility] Monocytes/100 WBC (Bld) 13.3 % [facility] Neutrophils (Bld) [#/Vol] 2.38 10*3/uL [facility] Neutrophils/100 WBC (Bld) 40.6 % [facility] Nucleated RBC (Bld) [#/Vol] 0.00 10*3/uL [facility] Nucleated RBC/100 WBC (Bld) [Ratio] 0.0 % [facility] Platelet mean volume (Bld) [Entitic vol] 10.5 fL 9.4 - 12.4 fL [facility] Platelets (Bld) [#/Vol] 298 10*3/uL [facility] RBC (Bld) [#/Vol] 2.60 10*6/uL Low [facility] WBC (Bld) [#/Vol] 5.86 10*3/uL [facility] Glucose (Bld) [Mass/Vol]Orde red By: Bryce Alvarez on 05-01-2021 Glucose [Mass/Vol] 212 mg/dL High 65 - 99 mg/dL [facility] Interpretation and review of laboratory results Abnormal [facility] Glucose [Mass/Vol] 151 mg/dL High 65 - 99 mg/dL [facility] Interpretation and review of laboratory results Abnormal [facility] Glucose [Mass/Vol] 220 mg/dL High 65 - 99 mg/dL [facility] Interpretation and review of laboratory results Abnormal [facility] Glucose [Mass/Vol] 95 mg/dL 65 - 99 mg/dL [facility] Interpretation and review of laboratory results Normal [facility] Hepatic function 2000 panelO rdered By: Bryce Alvarez on 05-01-2021 Albumin [Mass/Vol] 2.6 g/dL Low 3.2 - 5.2 g/dL [facility] ALP [Catalytic activity/Vol] 190 U/L High 40 - 150 U/L [facility] ALT [Catalytic activity/Vol] 39 U/L 14 - 65 U/L [facility] AST [Catalytic activity/Vol] 22 U/L 0 - 45 U/L [facility] Bilirubin [Mass/Vol] 0.3 mg/dL 0.0 - 1 .3 mg/dL [facility] Bilirubin.conjugated [Mass/Vol] mg/dL 0.0 - 0.4 mg/dL [facility] Interpretation and review of laboratory results Abnormal [facility] Protein [Mass/Vol] 6.7 g/dL 6.0 - 8.0 g/dL [facility] Magnesium LevelOrdered By: Bere Collins on 05-01-2021 Magnesium [Mass/Vol] 2.1 mg/dL 1.6 - 2 .4 mg/dL [facility] Magnesium [Mass/Vol]Ordered By: Melissa Collins on 05-01-2021 Interpretation and review of laboratory results Normal [facility] Bacteria identified Aer cx N om (Unsp spec)Ordered By: Geraldine Reilly on 04-30-2021 Interpretation and review of laboratory results Abnormal [facility] See susceptibility f rom same source/different date: 04/27/21 [facility] Bacteria identified Aer cx N om (Unsp spec)Ordered By: Lev Stockton on 04-30-2021 Interpretation and review of laboratory results Abnormal [facility] See susceptibility f rom same source/same date. [facility] Basic metabolic 2000 panelOr dered By: Bryce Alvarez on 04-30-2021 Anion gap [Moles/Vol] 13 mmol/L 10 - 2 0 mmol/L [facility] Calcium [Mass/Vol] 8.8 mg/dL 8.4 - 10. 2 mg/dL [facility] Chloride [Moles/Vol] 115 mmol/L High 98 - 10 8 mmol/L [facility] Creatinine [Mass/Vol] 1.58 mg/dL High 0.80 - 1.30 [facility] GFR/1.73 sq M.predicted CKD-EPI (S/P/Bld) [Vol rate/Area] 43 Low >=60 mL/min/1.73 m2 [facility] Glucose [Mass/Vol] 84 mg/dL 65 - 99 mg/dL [facility] HCO3 [Moles/Vol] 20 mmol/L Low 21 - 32 mmol/L [facility] Interpretation and review of laboratory results Abnormal [facility] Potassium [Moles/Vol] 3.9 mmol/L 3.5 - 5.1 mmol/L [facility] Sodium [Moles/Vol] 144 mmol/L 135 - 145 mmol/L [facility] Urea nitrogen [Mass/Vol] 18 mg/dL 8 - 25 mg/dL [facility] Urea nitrogen/Creatinine [Mass ratio] 11.4 mg/mg [facility] The eGFR should be u sed for monitoring renal function only and not for medication dosing. [facility] CBC WITH AUTO DIFFERENTIALOr dered By: Bryce Alvarez on 04-30-2021 Basophils (Bld) [#/Vol] 0.05 10*3/uL [facility] Basophils/100 WBC (Bld) 0.8 % [facility] Eosinophils (Bld) [#/Vol] 0.38 10*3/uL [facility] Eosinophils/100 WBC (Bld) 5.8 % [facility] Erythrocyte distribution width (RBC) [Entitic vol] 13.8 % 11.6 - 14.8 % [facility] Hematocrit (Bld) [Volume fraction] 25.3 % Low 41.0 - 53.0 % [facility] Hemoglobin (Bld) [Mass/Vol] 8.4 g/dL Low 13.5 - 17.5 g/dL [facility] Immature granulocytes (Bld) [#/Vol] 0.06 10*3/uL [facility] Immature granulocytes/100 WBC (Bld) 0.90 % [facility] Comment on above: The IG parameter is the percentage of metamyelocytes, myelocytes and promyelocytes. An immature granulocyte count (IG) of 1% or more suggests the possibility of infection, an IG count of 3% is very likely related to an infection. Interpretation and review of laboratory results Abnormal [facility] Lymphocytes (Bld) [#/Vol] 2.00 10*3/uL [facility] Lymphocytes/100 WBC (Bld) 30.3 % [facility] MCH (RBC) [Entitic mass] 34.3 pg High 26.0 - 34.0 pg [facility] MCHC (RBC) [Mass/Vol] 33.2 g/dL 31.0 - 37.0 g/dL [facility] MCV (RBC) [Entitic vol] 103.3 fL High 80.0 - 100.0 fL [facility] Monocytes (Bld) [#/Vol] 0.85 10*3/uL [facility] Monocytes/100 WBC (Bld) 12.9 % [facility] Neutrophils (Bld) [#/Vol] 3.25 10*3/uL [facility] Neutrophils/100 WBC (Bld) 49.3 % [facility] Nucleated RBC (Bld) [#/Vol] 0.00 10*3/uL [facility] Nucleated RBC/100 WBC (Bld) [Ratio] 0.0 % [facility] Platelet mean volume (Bld) [Entitic vol] 10.9 fL 9.4 - 12.4 fL [facility] Platelets (Bld) [#/Vol] 287 10*3/uL [facility] RBC (Bld) [#/Vol] 2.45 10*6/uL Low [facility] WBC (Bld) [#/Vol] 6.59 10*3/uL [facility] Glucose (Bld) [Mass/Vol]Orde red By: Bryce Alvarez on 04-30-2021 Glucose [Mass/Vol] 175 mg/dL High 65 - 99 mg/dL [facility] Interpretation and review of laboratory results Abnormal [facility] Glucose [Mass/Vol] 73 mg/dL 65 - 99 mg/dL [facility] Interpretation and review of laboratory results Normal [facility] Glucose [Mass/Vol] 211 mg/dL High 65 - 99 mg/dL [facility] Interpretation and review of laboratory results Abnormal [facility] Glucose [Mass/Vol] 97 mg/dL 65 - 99 mg/dL [facility] Interpretation and review of laboratory results Normal [facility] Hepatic function 2000 panelO rdered By: Bryce Alvarez on 04-30-2021 Albumin [Mass/Vol] 2.5 g/dL Low 3.2 - 5.2 g/dL [facility] ALP [Catalytic activity/Vol] 178 U/L High 40 - 150 U/L [facility] ALT [Catalytic activity/Vol] 42 U/L 14 - 65 U/L [facility] AST [Catalytic activity/Vol] 38 U/L 0 - 45 U/L [facility] Bilirubin [Mass/Vol] 0.3 mg/dL 0.0 - 1 .3 mg/dL [facility] Bilirubin.conjugated [Mass/Vol] mg/dL 0.0 - 0.4 mg/dL [facility] Interpretation and review of laboratory results Abnormal [facility] Protein [Mass/Vol] 6.4 g/dL 6.0 - 8.0 g/dL [facility] Magnesium LevelOrdered By: Elton Alvarez on 04-30-2021 Magnesium [Mass/Vol] 1.4 mg/dL Low 1.6 - 2 .4 mg/dL [facility] Magnesium [Mass/Vol]Ordered By: Bryce Alvarez on 04-30-2021 Interpretation and review of laboratory results Abnormal [facility] Urine Aerobic CultureOrdered By: Geraldine Reilly on 04-30-2021 Bacteria identified Aer cx Nom (Unsp spec) 50,000-100,000 CFU/mL Staphylococcus aureus Abnormal [facility] Bacteria identified Aer cx Nom (Unsp spec) 50,000-100,000 CFU/mL Enterococcus faecalis Abnormal [facility] Comment on above: Cephalosporins as a class do not have activity against Enterococcus species Bacteria identified Aer cx Nom (Unsp spec) 10,000-49,000 CFU/mL Presumptive Nia albicans Abnormal [facility] Urine Aerobic CultureOrdered By: Lev Stockton on 04-30-2021 Bacteria identified Aer cx Nom (Unsp spec) >100,000 CFU/mL Staphylococcus aureus Abnormal [facility] Bacteria identified Aer cx Nom (Unsp spec) 50,000-100,000 CFU/mL Enterococcus faecalis Abnormal [facility] Comment on above: Cephalosporins as a class do not have activity against Enterococcus species Bacteria identified Aer cx Nom (Unsp spec) 50,000-100,000 CFU/mL Presumptive Nia albicans Abnormal [facility] Basic metabolic 1998 panelOr dered By: Melissa Collins on 04-29-2021 Anion gap [Moles/Vol] 12 mmol/L 10 - 2 0 mmol/L [facility] Chloride [Moles/Vol] 113 mmol/L High 98 - 10 8 mmol/L [facility] Creatinine [Mass/Vol] 1.77 mg/dL High 0.80 - 1.30 [facility] GFR/1.73 sq M.predicted CKD-EPI (S/P/Bld) [Vol rate/Area] 38 Low >=60 mL/min/1.73 m2 [facility] Glucose [Mass/Vol] 83 mg/dL 65 - 99 mg/dL [facility] HCO3 [Moles/Vol] 21 mmol/L 21 - 32 mmol/L [facility] Interpretation and review of laboratory results Abnormal [facility] Potassium [Moles/Vol] 4.4 mmol/L 3.5 - 5.1 mmol/L [facility] Sodium [Moles/Vol] 142 mmol/L 135 - 145 mmol/L [facility] Urea nitrogen [Mass/Vol] 25 mg/dL 8 - 25 mg/dL [facility] Urea nitrogen/Creatinine [Mass ratio] 14.1 mg/mg [facility] The eGFR should be u sed for monitoring renal function only and not for medication dosing. [facility] Glucose (Bld) [Mass/Vol]Orde red By: Bryce Alvarez on 04-29-2021 Glucose [Mass/Vol] 126 mg/dL High 65 - 99 mg/dL [facility] Interpretation and review of laboratory results Abnormal [facility] Glucose [Mass/Vol] 232 mg/dL High 65 - 99 mg/dL [facility] Interpretation and review of laboratory results Abnormal [facility] Glucose [Mass/Vol] 84 mg/dL 65 - 99 mg/dL [facility] Interpretation and review of laboratory results Normal [facility] Glucose (Bld) [Mass/Vol]Orde red By: Geraldine Reilly on 04-29-2021 Glucose [Mass/Vol] 99 mg/dL 65 - 99 mg/dL [facility] Interpretation and review of laboratory results Normal [facility] CBC WITH AUTO DIFFERENTIALOr dered By: Geraldine Reilly on 04-28-2021 Basophils (Bld) [#/Vol] 0.04 10*3/uL [facility] Basophils/100 WBC (Bld) 0.5 % [facility] Eosinophils (Bld) [#/Vol] 0.37 10*3/uL [facility] Eosinophils/100 WBC (Bld) 4.2 % [facility] Erythrocyte distribution width (RBC) [Entitic vol] 14.4 % 11.6 - 14.8 % [facility] Hematocrit (Bld) [Volume fraction] 28.0 % Low 41.0 - 53.0 % [facility] Hemoglobin (Bld) [Mass/Vol] 9.0 g/dL Low 13.5 - 17.5 g/dL [facility] Immature granulocytes (Bld) [#/Vol] 0.06 10*3/uL [facility] Immature granulocytes/100 WBC (Bld) 0.70 % [facility] Comment on above: The IG parameter is the percentage of metamyelocytes, myelocytes and promyelocytes. An immature granulocyte count (IG) of 1% or more suggests the possibility of infection, an IG count of 3% is very likely related to an infection. Interpretation and review of laboratory results Abnormal [facility] Lymphocytes (Bld) [#/Vol] 1.95 10*3/uL [facility] Lymphocytes/100 WBC (Bld) 22.0 % [facility] MCH (RBC) [Entitic mass] 34.1 pg High 26.0 - 34.0 pg [facility] MCHC (RBC) [Mass/Vol] 32.1 g/dL 31.0 - 37.0 g/dL [facility] MCV (RBC) [Entitic vol] 106.1 fL High 80.0 - 100.0 fL [facility] Monocytes (Bld) [#/Vol] 0.99 10*3/uL High [facility] Monocytes/100 WBC (Bld) 11.2 % [facility] Neutrophils (Bld) [#/Vol] 5.45 10*3/uL [facility] Neutrophils/100 WBC (Bld) 61.4 % [facility] Nucleated RBC (Bld) [#/Vol] 0.00 10*3/uL [facility] Nucleated RBC/100 WBC (Bld) [Ratio] 0.0 % [facility] Platelet mean volume (Bld) [Entitic vol] 10.7 fL 9.4 - 12.4 fL [facility] Platelets (Bld) [#/Vol] 318 10*3/uL [facility] RBC (Bld) [#/Vol] 2.64 10*6/uL Low [facility] WBC (Bld) [#/Vol] 8.86 10*3/uL [facility] Glucose (Bld) [Mass/Vol]Orde red By: Geraldine Reilly on 04-28-2021 Glucose [Mass/Vol] 181 mg/dL High 65 - 99 mg/dL [facility] Interpretation and review of laboratory results Abnormal [facility] Glucose [Mass/Vol] 62 mg/dL Low 65 - 99 mg/dL [facility] Interpretation and review of laboratory results Abnormal [facility] Glucose [Mass/Vol] 201 mg/dL High 65 - 99 mg/dL [facility] Interpretation and review of laboratory results Abnormal [facility] Glucose [Mass/Vol] 132 mg/dL High 65 - 99 mg/dL [facility] Interpretation and review of laboratory results Abnormal [facility] Glucose [Mass/Vol] 114 mg/dL High 65 - 99 mg/dL [facility] Interpretation and review of laboratory results Abnormal [facility] HbA1c (Bld) [Mass fraction]O rdered By: Geraldine Reilly on 04-28-2021 Average glucose Estimated from glycated hemoglobin (Bld) [Mass/Vol] 137 mg/dL High 68 - 114 mg/dL [facility] Interpretation and review of laboratory results Abnormal [facility] Normal: 4.0% - 5.6% Increased risk for diabetes: 5.7% - 6.4% Diabetes: >= 6.5% Pediatrics: No established reference range Estimated average glucose: 68-114 mg/dL [facility] Hemoglobin [id number] By: Estephania Reilly on 04-28-2021 HbA1c (Bld) [Mass fraction] 6.4 % High 4.0 - 5.6 % [facility] MagnesiumOrdered By: Jozef Reilly on 04-28-2021 Magnesium [Mass/Vol] 1.4 mg/dL Low 1.6 - 2 .4 mg/dL [facility] Magnesium [Mass/Vol]Ordered By: Geraldine Reilly on 04-28-2021 Interpretation and review of laboratory results Abnormal [facility] [place] TopOrdered By: Estephania Stockton on 04-28-2021 Extra Tube Hold for add-ons. [facility] Comment on above: Auto resulted. [facility] Renal function 2000 panelOrd ered By: Geraldine Reilly on 04-28-2021 Albumin [Mass/Vol] 2.6 g/dL Low 3.2 - 5.2 g/dL [facility] Anion gap [Moles/Vol] 11 mmol/L 10 - 2 0 mmol/L [facility] Calcium [Mass/Vol] 9.0 mg/dL 8.4 - 10. 2 mg/dL [facility] Chloride [Moles/Vol] 109 mmol/L High 98 - 10 8 mmol/L [facility] Creatinine [Mass/Vol] 1.94 mg/dL High 0.80 - 1.30 [facility] GFR/1.73 sq M.predicted CKD-EPI (S/P/Bld) [Vol rate/Area] 34 Low >=60 mL/min/1.73 m2 [facility] Glucose [Mass/Vol] 98 mg/dL 65 - 99 mg/dL [facility] HCO3 [Moles/Vol] 23 mmol/L 21 - 32 mmol/L [facility] Interpretation and review of laboratory results Abnormal [facility] Phosphate [Mass/Vol] 4.2 mg/dL High 2.3 - 3 .7 mg/dL [facility] Potassium [Moles/Vol] 4.8 mmol/L 3.5 - 5.1 mmol/L [facility] Sodium [Moles/Vol] 138 mmol/L 135 - 145 mmol/L [facility] Urea nitrogen [Mass/Vol] 41 mg/dL High 8 - 25 mg/dL [facility] Urea nitrogen/Creatinine [Mass ratio] 21.1 mg/mg High [facility] The eGFR should be u sed for monitoring renal function only and not for medication dosing. [facility] TSH DL <= 0.005 mIU/L QnOrde red By: Geraldine Reilly on 04-28-2021 Interpretation and review of laboratory results Normal [facility] TSH Qn 1.56 m[IU]/L [facility] URINALYSISOrdered By: Sheldon Reilly on 04-28-2021 Bacteria Auto Ql (U) Rare Abnormal None Se en /hpf [facility] Clarity Refractometry automated (U) Cloudy Abnormal Clear [facility] Color (U) Yellow Colorless, Yellow [facility] Glucose Auto test strip (U) [Mass/Vol] Negative Negative mg/dL [facility] Ketones (U) [Mass/Vol] Negative Negat dequan mg/dL [facility] Leukocyte esterase Auto test strip Ql (U) Large Abnormal Negative [facility] pH (U) 7.0 [pH] [facility] Specific gravity (U) [Rel density] 1.014 [facility] Bacteria Auto Ql (U) Rare Abnormal None Se en /hpf [facility] Clarity Refractometry automated (U) Clear Clear [facility] Color (U) Colorless Colorless, Yellow [facility] Glucose Auto test strip (U) [Mass/Vol] Negative Negative mg/dL [facility] Ketones (U) [Mass/Vol] Negative Negat dequan mg/dL [facility] Leukocyte esterase Auto test strip Ql (U) Small Abnormal Negative [facility] pH (U) 7.0 [pH] [facility] Specific gravity (U) [Rel density] 1.010 [facility] UrinalysisOrdered By: Sheldon lissa Reilly on 04-28-2021 Bilirubin Ql (U) Negative Negative [facility] Epithelial cells.squamous Auto (Urine sed) [#/Area] <1 [facility] Hemoglobin Auto test strip Ql (U) Small Abnormal Negative [facility] Interpretation and review of laboratory results Abnormal [facility] Leukocyte clumps Auto (Urine sed) [#/Area] Many Abnormal None Seen /hpf [facility] Mucus Auto (Urine sed) [#/Area] Rare None Seen, Rare /lpf [facility] Nitrite Auto test strip Ql (U) Negative Negative [facility] Protein (U) [Mass/Vol] 30 mg/dL Abnormal Negat dequan mg/dL [facility] Comment on above: False positive resul ts may occur in urines with large amounts of hemoglobin, pH greater than 8.0, contrast medium, or disinfectants including ammonium compounds. RBC Auto (Urine sed) [#/Area] 35 High [facility] Urobilinogen (U) [Mass/Vol] mg/dL <2.0 mg/dL [facility] WBC Auto (Urine sed) [#/Area] 170 High [facility] Microscopic examinat ion is performed on all urinalysis samples and only positive findings are reported. The test for blood on the chemical analytic portion of urinalysis may also be positive due to hemoglobinuria and myoglobinuria and if red blood cells are present they are quantified by microscopic examination. [facility] Bilirubin Ql (U) Negative Negative [facility] Hemoglobin Auto test strip Ql (U) Negative Negative [facility] Hyaline casts Auto (Urine sed) [#/Area] 0-2 0 - 2 /lpf [facility] Interpretation and review of laboratory results Abnormal [facility] Mucus Auto (Urine sed) [#/Area] Rare None Seen, Rare /lpf [facility] Nitrite Auto test strip Ql (U) Negative Negative [facility] Protein (U) [Mass/Vol] Negative Negat dequan mg/dL [facility] RBC Auto (Urine sed) [#/Area] 1 [facility] Urobilinogen (U) [Mass/Vol] mg/dL <2.0 mg/dL [facility] WBC Auto (Urine sed) [#/Area] 21 High [facility] Yeast.budding Computer assisted (U) [#/Area] Few Abnormal None Seen /hpf [facility] Yeast.hyphae Computer assisted (U) [#/Area] Rare Abnormal None Seen /hpf [facility] Microscopic examinat ion is performed on all urinalysis samples and only positive findings are reported. The test for blood on the chemical analytic portion of urinalysis may also be positive due to hemoglobinuria and myoglobinuria and if red blood cells are present they are quantified by microscopic examination. [facility] Basic metabolic 1997 panelOr dered By: Lev Stockton on 04-27-2021 Anion gap [Moles/Vol] 13 mmol/L 10 - 2 0 mmol/L [facility] Chloride [Moles/Vol] 113 mmol/L High 98 - 10 8 mmol/L [facility] Creatinine [Mass/Vol] 2.71 mg/dL High 0.80 - 1.30 [facility] GFR/1.73 sq M.predicted CKD-EPI (S/P/Bld) [Vol rate/Area] 22 Low >=60 mL/min/1.73 m2 [facility] Glucose [Mass/Vol] 118 mg/dL High 65 - 99 mg/dL [facility] HCO3 [Moles/Vol] 17 mmol/L Low 21 - 32 mmol/L [facility] Interpretation and review of laboratory results Abnormal [facility] Potassium [Moles/Vol] 7.5 mmol/L Critically high 3.5 - 5.1 mmol/L [facility] Sodium [Moles/Vol] 135 mmol/L 135 - 145 mmol/L [facility] Urea nitrogen [Mass/Vol] 47 mg/dL High 8 - 25 mg/dL [facility] Urea nitrogen/Creatinine [Mass ratio] 17.3 mg/mg [facility] The eGFR should be u sed for monitoring renal function only and not for medication dosing. [facility] Basic metabolic 1999 panelOr dered By: Geraldine Reilly on 04-27-2021 Anion gap [Moles/Vol] 10 mmol/L 10 - 2 0 mmol/L [facility] Calcium [Mass/Vol] 9.5 mg/dL 8.4 - 10. 2 mg/dL [facility] Chloride [Moles/Vol] 113 mmol/L High 98 - 10 8 mmol/L [facility] Creatinine [Mass/Vol] 2.55 mg/dL High 0.80 - 1.30 [facility] GFR/1.73 sq M.predicted CKD-EPI (S/P/Bld) [Vol rate/Area] 24 Low >=60 mL/min/1.73 m2 [facility] Glucose [Mass/Vol] 36 mg/dL Critically low 65 - 99 mg/dL [facility] HCO3 [Moles/Vol] 21 mmol/L 21 - 32 mmol/L [facility] Interpretation and review of laboratory results Abnormal [facility] Potassium [Moles/Vol] 5.4 mmol/L High 3.5 - 5.1 mmol/L [facility] Sodium [Moles/Vol] 139 mmol/L 135 - 145 mmol/L [facility] Urea nitrogen [Mass/Vol] 50 mg/dL High 8 - 25 mg/dL [facility] Urea nitrogen/Creatinine [Mass ratio] 19.6 mg/mg [facility] The eGFR should be u sed for monitoring renal function only and not for medication dosing. [facility] Beta hydroxybutyrate [Moles/ Vol]Ordered By: Geraldine Reilly on 04-27-2021 Interpretation and review of laboratory results Normal [facility] Beta-HydroxybutyrateOrdered By: Geraldine Reilly on 04-27-2021 Beta hydroxybutyrate [Moles/Vol] <0.1 0.0 - 0.3 mmol/L [facility] CBC WITH AUTO DIFFERENTIALOr dered By: Lev Stockton on 04-27-2021 Basophils (Bld) [#/Vol] 0.05 10*3/uL [facility] Basophils/100 WBC (Bld) 0.4 % [facility] Eosinophils (Bld) [#/Vol] 0.37 10*3/uL [facility] Eosinophils/100 WBC (Bld) 3.3 % [facility] Erythrocyte distribution width (RBC) [Entitic vol] 14.6 % 11.6 - 14.8 % [facility] Hematocrit (Bld) [Volume fraction] 28.5 % Low 41.0 - 53.0 % [facility] Hemoglobin (Bld) [Mass/Vol] 9.1 g/dL Low 13.5 - 17.5 g/dL [facility] Immature granulocytes (Bld) [#/Vol] 0.08 10*3/uL [facility] Immature granulocytes/100 WBC (Bld) 0.70 % [facility] Comment on above: The IG parameter is the percentage of metamyelocytes, myelocytes and promyelocytes. An immature granulocyte count (IG) of 1% or more suggests the possibility of infection, an IG count of 3% is very likely related to an infection. Interpretation and review of laboratory results Abnormal [facility] Lymphocytes (Bld) [#/Vol] 1.89 10*3/uL [facility] Lymphocytes/100 WBC (Bld) 16.9 % [facility] MCH (RBC) [Entitic mass] 33.8 pg 26.0 - 34.0 pg [facility] MCHC (RBC) [Mass/Vol] 31.9 g/dL 31.0 - 37.0 g/dL [facility] MCV (RBC) [Entitic vol] 105.9 fL High 80.0 - 100.0 fL [facility] Monocytes (Bld) [#/Vol] 1.28 10*3/uL High [facility] Monocytes/100 WBC (Bld) 11.4 % [facility] Neutrophils (Bld) [#/Vol] 7.54 10*3/uL High [facility] Neutrophils/100 WBC (Bld) 67.3 % [facility] Nucleated RBC (Bld) [#/Vol] 0.00 10*3/uL [facility] Nucleated RBC/100 WBC (Bld) [Ratio] 0.0 % [facility] Platelet mean volume (Bld) [Entitic vol] 11.4 fL 9.4 - 12.4 fL [facility] Platelets (Bld) [#/Vol] 353 10*3/uL [facility] RBC (Bld) [#/Vol] 2.69 10*6/uL Low [facility]alth WBC (Bld) [#/Vol] 11.21 10*3/uL High [facility] CK [Catalytic activity/Vol]O rdered By: Geraldine Reilly on 04-27-2021 Interpretation and review of laboratory results Abnormal [facility] CPK NO MBOrdered By: Jozef Reilly on 04-27-2021 CK [Catalytic activity/Vol] 26 U/L Low 60 - 225 U/L [facility] CRITICAL CAREOrdered By: Ildefonso Stockton on 04-27-2021 Lev Stockton MD 04/27/2021 5:33 PM Critical Care Performed by: Lev Stockton MD Authorized by: Lev Stockton MD Total critical care time: 45 minutes [...] patient's condition and review of old charts. [facility] ECG 12-LEADOrdered By: Lev Stockton on 04-27-2021 Atrial Rate 58 BPM [facility] P [place] 65 degrees [facility] P-R Interval 182 ms [facility] Q-T Interval 398 ms [facility] QRS Duration 84 ms [facility] QTC Calculation (Bezet) 390 ms [facility] R [place] 67 degrees [facility] T [place] 77 degrees [facility] Ventricular Rate 58 BPM [facility] Sinus bradycardia Otherwise normal ECG ECG Cart Interpretation see physician note for interpretation. Confirmed by Marita Cheng ([id number]) on 04/27/2021 5:26:31 PM [facility] Lev Stockton MD 04/27/2021 5:33 PM ECG 12 Lead Date/Time: 04/27/2021 3:16 PM Performed by: Lev Stockton MD Authorized by: Lev Stockton MD Interpreted by ED attending physician Comparison: not compared with previous ECG Rhythm: sinus rhythm and sinus bradycardia BPM: 58 Conduction: conduction normal ST Segments: ST segments normal T Waves: T waves normal NE Interval: 182 QRS Interval: 84 QT Interval: 390 Clinical impression: sinus bradycardia [facility] EKGOrdered By: Provider Syst em on 04-27-2021 Ordered by an unspecified provider. [facility] Glucose (Bld) [Mass/Vol]Orde red By: Geraldine Reilly on 04-27-2021 Glucose [Mass/Vol] 135 mg/dL High 65 - 99 mg/dL [facility] Interpretation and review of laboratory results Abnormal [facility] Glucose (Bld) [Mass/Vol]Orde red By: Lev Stockton on 04-27-2021 Glucose [Mass/Vol] 50 mg/dL Low 65 - 99 mg/dL [facility] Interpretation and review of laboratory results Abnormal [facility] Lactate [Moles/Vol]Ordered B y: Geraldine Reilly on 04-27-2021 Interpretation and review of laboratory results Abnormal [facility] Lactic Acid, PlasmaOrdered B y: Geraldine Reilly on 04-27-2021 Lactate [Moles/Vol] 2.1 mmol/L High 0.6 - 2. 0 mmol/L [facility] Lavender TopOrdered By: Isaac Stockton on 04-27-2021 Extra Tube Hold for add-ons. [facility] Comment on above: Auto resulted. [facility] Magnesium LevelOrdered By: Allie Reilly on 04-27-2021 Magnesium [Mass/Vol] 1.5 mg/dL Low 1.6 - 2 .4 mg/dL [facility] Magnesium [Mass/Vol]Ordered By: Geraldine Reilly on 04-27-2021 Interpretation and review of laboratory results Abnormal [facility] Obtain venous blood gases an d performOrdered By: Lev Stockton on 04-27-2021 [facility] POC Venous Blood Gas Panel-P ulmOrdered By: Lev Stockton on 04-27-2021 Base excess Calc (BldV) [Moles/Vol] -8.1000 mmol/L Low [facility] Breath rate setting Ventilator synchronized intermittent mandatory 0 [facility] h CO2 (BldV) [Partial pressure] 39.2 mm[Hg] Low [facility] HCO3 (Bld) [Moles/Vol] 18.1 mmol/L Low 24.0 - 28.0 mmol/L [facility] Hematocrit (BldA) [Volume fraction] 29.2 % Low 41.0 - 53.0 % [facility] Hemoglobin (Bld) [Mass/Vol] 9.5 g/dL Low 13.5 - 17.5 g/dL [facility] Inhaled oxygen concentration 21 % [facility] Interpretation and review of laboratory results Abnormal [facility] Oxygen (BldV) [Partial pressure] 22 mm[Hg] Low [facility] Comment on above: Caution: pO2 referen ce ranges for some specimen types are lower than the measuring range of the instrument. Oxygen saturation in Venous blood 29.5 % Low 40.0 - 70.0 % [facility] pH (BldV) 7.27 [pH] Low [facility] Specimen source Nom (Unsp spec) Not specified [facility] Tidal volume setting Ventilator 0 [facility] Phosphate [Mass/Vol]Ordered By: Geraldine Reilly on 04-27-2021 Interpretation and review of laboratory results Abnormal [facility] PhosphorusOrdered By: Sheldon Reilly on 04-27-2021 Phosphate [Mass/Vol] 5.7 mg/dL High 2.3 - 3 .7 mg/dL [facility] Reflex Lactic Acid, PlasmaOr dered By: Geraldine Reilly on 04-27-2021 Interpretation and review of laboratory results Normal [facility] Lactate [Moles/Vol] 1.3 mmol/L 0.6 - 2. 0 mmol/L [facility] SARS-CoV-2 (COVID-19) RdRp g olivia BANDAR+probe Ql (Resp)Ordered By: Lev Stockton on 04-27-2021 Interpretation and review of laboratory results Normal [facility] SARS-CoV-2 (COVID-19) RNA BANDAR+probe Ql (Resp) Not detected Not Detected [facility] This test was perfor med under the FDA's Emergency Use Authorization (EUA). Testing was performed using the Mer[employer] [facility] SARS-CoV-2 RT-PCR & Influenza A/B Nucleic Acid Test on the [employer] System. This test has not been approved for use in asymptomatic patients and its performance in this patient population has not been evaluated. Negative results do not rule out the presence of SARS-CoV-2, influenza A, and/or influenza B. Fact sheets for the EUA can be found at the following links: For Healthcare Providers: https://www.fda.gov/medi a/486102/download For Patients: https://www.fda.gov/medi a/818306/download [facility] URINALYSISOrdered By: Lev Stockton on 04-27-2021 Bacteria Auto Ql (U) Rare Abnormal None Se en /hpf [facility] Clarity Refractometry automated (U) Cloudy Abnormal Clear [facility] Color (U) Yellow Colorless, Yellow [facility] Glucose Auto test strip (U) [Mass/Vol] 50 Abnormal Negative mg/dL [facility] Ketones (U) [Mass/Vol] Negative Negat dequan mg/dL [facility] Leukocyte esterase Auto test strip Ql (U) Large Abnormal Negative [facility] pH (U) 5.5 [pH] [facility] Specific gravity (U) [Rel density] 1.015 [facility] UrinalysisOrdered By: Lev Stockton on 04-27-2021 Bilirubin Ql (U) Negative Negative [facility] th Epithelial cells.squamous Auto (Urine sed) [#/Area] <1 [facility] Hemoglobin Auto test strip Ql (U) Negative Negative [facility] Hyaline casts Auto (Urine sed) [#/Area] 6-10 Abnormal 0 - 2 /lpf [facility] Interpretation and review of laboratory results Abnormal [facility] Leukocyte clumps Auto (Urine sed) [#/Area] Rare Abnormal None Seen /hpf [facility] Mucus Auto (Urine sed) [#/Area] Rare None Seen, Rare /lpf [facility] Nitrite Auto test strip Ql (U) Negative Negative [facility] Protein (U) [Mass/Vol] Negative Negat dequan mg/dL [facility] RBC Auto (Urine sed) [#/Area] 4 High [facility] Urobilinogen (U) [Mass/Vol] mg/dL <2.0 mg/dL [facility] WBC Auto (Urine sed) [#/Area] 102 High [facility] Yeast.budding Computer assisted (U) [#/Area] Few Abnormal None Seen /hpf [facility] Microscopic examinat ion is performed on all urinalysis samples and only positive findings are reported. The test for blood on the chemical analytic portion of urinalysis may also be positive due to hemoglobinuria and myoglobinuria and if red blood cells are present they are quantified by microscopic examination. [facility] XR CHEST AP/PA AND LATon Granulocytes/100 WBC (Bld) Changes of COPD and remote granulomatous disease. No acute process identified. [employer] Workstation ID: [id number] [facility] EXAMINATION: XR CHES T AP/PA AND [...] mediastinal widening. No obvious acute osseous abnormality. [facility] Interface, Rad In Fu ji Speechq [...] remote granulomatous disease. No acute process identified. [employer]/cdr Workstation ID: [id number] [facility] Coronavirus 2019 RNA by PCR, Symptomaticon 09-10-2020 EMPLOYED IN HEALTHCARE No [facility] Work Phone: FIRST COVID NASAL SWAB TEST? No [facility] Work Phone: ICU? No [facility] Work Phone: Patient was hospitalized because of this condition No [facility] Work Phone: RESIDENT IN CONGREGATE CARE SETTING? No [facility] Work Phone: SYMPTOMATIC DEFINED BY CDC Yes [facility] Medicine Work Phone: When did you start to experience these symptoms [Date and time] [PhenX] [id number] [facility] Medicine Work Phone: Coronavirus 2019 RNA by PCR, Symptomatic NOT DETECTED See Below [facility] Work Phone: Comment on above: SOURCE: [...] make patient management decisions.Fact sheet for providers: https://www.fda.gov/media/673727/downloadFact sheet for patients: https://www.fda.gov/media/609769/downloadThis test has received FDA Emergency Use Authorization (EUA) and has been verified by [facility] ([facility]). This test is only authorized for the duration of time that circumstances exist to justify the authorization of the emergency use of in vitro diagnostic tests for the detection of SARS-CoV-2 virus and/or diagnosis of COVID-19 infection under section 564(b)(1) of the Act, 21 U.S.C. 360bbb-3(b)(1), unless the authorization is terminated or revoked sooner. [facility] is certified under CLIA-88 as qualified to perform high complexity testing. Testing is performed in the [facility] laboratories located at [address] [place] [address]. Mammography Diagnostic Bilat eran 08-31-[address] than left proliferated retroareolar fibroglandular markings. The appearance is consistent with gynecomastia. BIRADS: BIRADS - CATEGORY 2 Benign, no evidence of malignancy. OVERALL ASSESSMENT - BENIGN These results were discussed with the patient at the time of study completion. A letter of notification will be sent to the patient regarding the results. [employer] Workstation ID: [id number] [facility] EXAMINATION: MM DIAGNOSTIC BILATERAL HISTORY: Nipple pain. COMPARISON: None. FINDINGS: Bilaterally there appear to be proliferated fibroglandular tissues behind the nipple. There are no signs of high density discrete or irregular mass, or suspicious calcification. Changes are more prominent on the right. [facility] Interface, Rad In Fu ji Speechq [...] sent to the patient regarding the results. [employer] Workstation ID: [id number] [facility] CT COMPARISON IMPORTon 06-10 This order has been auto-finalized and does not contain a result. [facility] This order has been auto-finalized and does not contain a result. [facility] This order has been auto-finalized and does not contain a result. [facility] POC Glucoseon 06-10-2020 Glucose [Mass/Vol] 259 mg/dL High 65 - 99 mg/dL [facility] Interpretation and review of laboratory results Abnormal [facility] Glucose [Mass/Vol] 259 mg/dL Abnormal 65 - 99 mg/dL [facility] Interpretation and review of laboratory results Abnormal [facility] XR COMPARISON IMPORTon 06-10 This order has been auto-finalized and does not contain a result. [facility] Otheron 04-28-2020 Stress Nuc Stress EF 73 % [facility] Patient Info Name: STEVO GERMAIN Age: 70 years : 1950 Gender: Male Ht: 170 cm Wt: 67 kg BSA: 1.78 m2 HR: 76 bpm BP: 155 / 85 mmHg Heart Rhythm: Sinus Rhythm Exam Date: 04/28/2020 10:00 AM Patient Status: Outpatient Ordering Physician: AQUILES BAY Customer Sales Advisor: Joelle Holbrook, RT(N), TELEGRAPH REPEATER INSTALLER, RCS Exam Type: NM MYOCARDIAL PERFUSION MULTI SPECT Study Info Nuclear Physician: Juanis Dumont MD, RPVI Referring Physician: DR. MAE; [id number] Primary Nurse: Felicitas Cline RN Supervising Stress [...] Joelle Holbrook RT(N), FAINA, RCS Camera Used: [employer] D-SPECT Radiopharmaceutical: Tc-99m Tetrofosmin Administration Site: IV - right hand Administered By: Joelle Holbrook RT(N), FAINA, RCS Camera Used: [employer] D-SPECT Image Protocol Protocol: Stress/Rest 1 Day [...] images were acquired supine post Tetrofosmin injection. [facility] QGS/QPS application was utilized for processing and [...] Juanis Dumont MD on 04/28/2020 02:12 PM [facility] Interface, Rad In Heartlab Xper Echopacs - 04/28/2020 2:29 PM EDT Patient Info Name: STEVO GERMAIN Age: 70 years : 1950 Gender: Male Ht: 170 cm Wt: 67 kg BSA: 1.78 m2 HR: 76 bpm BP: 155 / 85 mmHg Heart Rhythm: Sinus Rhythm Exam Date: 04/28/2020 10:00 AM Patient Status: Outpatient Ordering Physician: AQUILES BAY Customer Sales Advisor: Joelle Holbrook, RT(N), TELEGRAPH REPEATER INSTALLER, [facility] Exam Type: NM MYOCARDIAL PERFUSION MULTI SPECT Study Info Nuclear Physician: Juanis Dumont MD, RPVI Referring Physician: DR. MAE; [id number] Primary Nurse: Felicitas Cline RN Supervising Stress [...] right hand Administered By: Joelle Holbrook RT(N), TELEGRAPH REPEATER INSTALLER, RCS Camera Used: [employer] D-SPECT Radiopharmaceutical: Tc-99m Tetrofosmin Administration Site: IV - right hand Administered By: Joelle Holbrook RT(N), TELEGRAPH REPEATER INSTALLER, RCS Camera Used: [employer] D-SPECT Image Protocol Protocol: Stress/Rest 1 Day [...] images were acquired supine post Tetrofosmin injection. [facility] QGS/QPS application was utilized for processing and [...] Juanis Dumont MD on 04/28/2020 02:12 PM [facility] APTTon 04-14-2020 aPTT Coag (Bld) [Time] Therapeutic range for APTT's is 68 - 104 seconds [facility] aPTT Coag (Bld) [Time] 23 s [facility] Alcohol, Medicalon 0 Ethanol [Mass/Vol] 259.70 mg/dL High <10.00 [facility] Interpretation and review of laboratory results Abnormal [facility] CBCon 04-14-2020 Erythrocyte distribution width (RBC) [Entitic vol] 12.5 % 11.6 - 14.8 % [facility] Hematocrit (Bld) [Volume fraction] 35.6 % Low 41 - 53 % [facility] Hemoglobin (Bld) [Mass/Vol] 11.9 g/dL Low 13.5 - 17.5 g/dL [facility] MCH (RBC) [Entitic mass] 37.4 pg High 26 - 34 pg [facility] MCHC (RBC) [Mass/Vol] 33.4 g/dL 31 - 37 g/dL O msoHeal MCV (RBC) [Entitic vol] 111.9 fL High 80 - 100 fL [facility] Nucleated RBC (Bld) [#/Vol] 0.00 10*3/uL [facility] Nucleated RBC/100 WBC (Bld) [Ratio] 0.0 % [facility] Platelet mean volume (Bld) [Entitic vol] 10.9 fL 9.4 - 12.4 fL [facility] Platelets (Bld) [#/Vol] 161 10*3/uL [facility] RBC (Bld) [#/Vol] 3.18 10*6/uL Low [facility] WBC (Bld) [#/Vol] 9.35 10*3/uL [facility] ealth COVID-19, Molecularon 2019 SARS-CoV-2 Not Detected Not Detected [facility] Comment on above: This test was [...] at the following links: For Healthcare Providers: https://www.COFCO.gov/media/323527/download For Patients: https://www.fda.gov/[employer]/002836/download CT CERVICAL SPINE WITHOUT CO NTRASTon 04-14-2020 No acute fracture or traumatic malalignment. Amnzhomw-qk-qbvujn multilevel degenerative changes. [employer] Workstation ID: [id number] [facility] EXAMINATION: CT CERV ICAL SPINE WITHOUT [...] the carotid arteries, left greater than right. [facility] Interface, Rad In Fu ji Speechq [...] IMPRESSION: No acute fracture or traumatic malalignment. Ilyxzcun-mt-rwuhsv multilevel degenerative changes. [employer] Workstation ID: [id number] [facility] CT CERVICAL SPINE WITHOUT CONTRAST EXAMINATION: [...] IMPRESSION: No acute fracture or traumatic malalignment. Budjysvp-ec-wkwrff multilevel degenerative changes. [employer] Workstation ID: [id number] Dictated by: MARIAJOSE ANDERSON on MonApr 14, 2020 2:01:27 PM EDT Transcribed by: CAMILA ESPINAL on MonApr 14, 2020 2:23:34 PM EDT Finalized by: MARIAJOSE ANDERSON on MonApr 14, 2020 6:45:42 PM EDT Normal [facility] Comment on above: Order [...] aneurysmal dilatation of the descending thoracic aorta. [employer] Workstation ID: [id number] [facility] EXAMINATION: CT CHES T ABDOMEN PELVIS [...] lesions. No acute fracture of the pelvis. [facility] Interface, Rad In Fu ji Speechq [...] aneurysmal dilatation of the descending thoracic aorta. [employer] Workstation ID: [id number] [facility] CT CHEST ABDOMEN PELVIS WITHOUT CONTRAST [...] aneurysmal dilatation of the descending thoracic aorta. [email or web address] Workstation ID: [id number] Dictated by: MARIAJOSE ANDERSON on MonApr 14, 2020 2:33:49 PM EDT Transcribed by: ANDRAE DANIEL on MonApr 14, 2020 3:18:30 PM EDT Finalized by: MARIAJOSE ANDERSON on MonApr 14, 2020 6:45:27 PM EDT Normal [facility] Comment on above: Order [...] mass effect. 2. No depressed calvarial fracture. [employer] Workstation ID: [id number] [facility] Interface, Rad In Abel Mendesq - 04/14/2020 6:48 PM EDT EXAMINATION: CT [...] mass effect. 2. No depressed calvarial fracture. [employer] Workstation ID: [id number] [facility] EXAMINATION: CT HEAD OR BRAIN WITHOUT [...] aerated. Mastoids are clear. Calvarium is unremarkable. [facility] CT HEAD OR BRAIN WITHOUT CONTRAST [...] mass effect. 2. No depressed calvarial fracture. /[facility][note 3] Workstation ID: [id number] Dictated by: MARIAJOSE ANDERSON on MonApr 14, 2020 1:50:35 PM EDT Transcribed by: NATALI CORDERO on MonApr 14, 2020 2:17:10 PM EDT Finalized by: MARIAJOSE ANDERSON on MonApr 14, 2020 6:46:19 PM EDT [facility] Comment on above: [...] IMPRESSION: No acute fracture or traumatic malalignment. [employer] Workstation ID: [id number] Dictated by: MARIAJOSE ANDERSON on MonApr 14, 2020 2:12:15 PM EDT Transcribed by: SITA STEINER on MonApr 14, 2020 2:40:33 PM EDT Finalized by: MARIAJOSE ANDERSON on MonApr 14, 2020 6:45:38 PM EDT [facility] Comment on above: [...] facet arthropathy of the lower lumbar spine. [facility] No acute fracture or traumatic malalignment. [employer] Workstation ID: [id number] [facility] Rick Brooks ji Speechq - 04/14/2020 6:48 PM EDT [...] IMPRESSION: No acute fracture or traumatic malalignment. [employer] Workstation ID: [id number] [facility] CT THORACIC SPINE WITHOUT CO NTRAST [...] loss. Remaining vertebral body heights are normal. Mcyh-dr-nhmvcpyj multilevel degenerative disc changes. IMPRESSION: No acute fracture or traumatic malalignment. [email or web address] Workstation ID: [id number] Dictated by: MARIAJOSE ANDERSON on MonApr 14, 2020 2:18:39 PM EDT Transcribed by: ANDRAE DANIEL on MonApr 14, 2020 3:01:09 PM EDT Finalized by: MARIAJOSE ANDERSON on MonApr 14, 2020 6:45:32 PM EDT [facility] Comment on above: [...] Co ntrast Reconstructedon 04-14-2020 Interface, Rad In [facility] - 04/14/2020 6:48 PM EDT EXAMINATION: CT [...] loss. Remaining vertebral body heights are normal. Vgoi-fd-weadqepg multilevel degenerative disc changes. IMPRESSION: No acute fracture or traumatic malalignment. [email or web address] Workstation ID: [id number] [facility] No acute fracture or traumatic malalignment. [email or web address] Workstation ID: [id number] [facility] EXAMINATION: CT THOR ACIC SPINE WITHOUT [...] loss. Remaining vertebral body heights are normal. Xbxk-bi-xrfhsihe multilevel degenerative disc changes. [facility] Comprehensive Metabolic Pane shelby 04-14-2020 Albumin [Mass/Vol] 3.2 g/dL 3.2 - 5.2 g/dL [facility] ALP [Catalytic activity/Vol] 56 U/L 40 - 150 U/L [facility] ALT [Catalytic activity/Vol] 49 U/L 14 - 65 U/L [facility] Anion gap [Moles/Vol] 20 mmol/L 10 - 2 0 mmol/L [facility] AST [Catalytic activity/Vol] 45 U/L 0 - 45 U/L [facility] Bilirubin [Mass/Vol] 0.3 mg/dL 0 - 1.3 mg/dL [facility] Calcium [Mass/Vol] 8.7 mg/dL 8.4 - 10. 2 mg/dL [facility] Chloride [Moles/Vol] 108 mmol/L 98 - 10 8 mmol/L [facility] Creatinine [Mass/Vol] 1.66 mg/dL High 0.80 - 1.30 [facility] GFR/1.73 sq M predicted among non-blacks MDRD (S/P/Bld) [Vol rate/Area] The eGFR should be used for monitoring renal function only and not for medication dosing. [facility] GFR/1.73 sq M.predicted CKD-EPI (S/P/Bld) [Vol rate/Area] 41 Low >=60 mL/min/1.73 m2 [facility] Glucose [Mass/Vol] 88 mg/dL 65 - 99 mg/dL [facility] HCO3 [Moles/Vol] 18 mmol/L Low 21 - 32 mmol/L [facility] Potassium [Moles/Vol] 4.5 mmol/L 3.5 - 5.1 mmol/L [facility] Protein [Mass/Vol] 6.7 g/dL 6 - 8 g/dL [facility] alth Sodium [Moles/Vol] 141 mmol/L 135 - 145 mmol/L [facility] Urea nitrogen [Mass/Vol] 37 mg/dL High 8 - 25 mg/dL [facility] Urea nitrogen/Creatinine [Mass ratio] 22.3 mg/mg High [facility] Gold Topon 04-14-2020 Extra Tube Hold for add-ons. [facility] Comment on above: Auto resulted. Magnesium Levelon 04-14-2020 Magnesium [Mass/Vol] 2.0 mg/dL 1.6 - 2 .4 mg/dL [facility] Otheron 04-14-2020 Interpretation and review of laboratory results Abnormal [facility] Interpretation and review of laboratory results Normal [facility] POC PT/INRon 04-14-2020 INR Coag (Bld) [Relative time] 1.0 {INR} [facility] POC Venous Blood Gas Panel-P ulmon 04-14-2020 Base excess Calc (BldV) [Moles/Vol] -8.1 mmol/L Low [facility] Breath rate setting Ventilator synchronized intermittent mandatory 0 [facility] h CO2 (BldV) [Partial pressure] 41.3 mm[Hg] [facility] HCO3 (Bld) [Moles/Vol] 18.6 mmol/L Low 24 - 28 mmol/L [facility] Hematocrit (BldA) [Volume fraction] 37.2 % Low 41 - 53 % [facility] Hemoglobin (Bld) [Mass/Vol] 12.1 g/dL Low 13.5 - 18 g/dL [facility] Inhaled oxygen concentration 21 % [facility] Interpretation and review of laboratory results Abnormal [facility] Oxygen (BldV) [Partial pressure] 43 mm[Hg] High [facility] Oxygen saturation in Venous blood 73.7 % High 40 - 70 % [facility] pH (BldV) 7.26 [pH] Low [facility] Specimen source Nom (Unsp spec) Not specified [facility] Tidal volume setting Ventilator 0 [facility] PT/INRon 04-14-2020 INR Coag (PPP) [Relative time] 1.0 {INR} [facility] PT Coag (PPP) [Time] 12.9 s [facility] During the induction phase of oral anticoagulation, the INR may not reflect the anticoagulation status of the patient. Therapeutic ranges for INR's are: Most clinical situations: INR 2.0-3.0 Mechanical Prosthetic Valve: INR 2.5-3.5 Critical: INR >5.0 [facility] Phosphoruson 04-14-2020 Phosphate [Mass/Vol] 3.9 mg/dL High 2.3 - 3 .7 mg/dL [facility] Type and Screenon 04-14-2020 ABO and Rh group Nom (Bld) A Positive [facility] Blood group antibody screen Ql Negative [facility] Specimen Expires 04/17/2020 23:59 EST [facility] XR CHEST PA/APon 04-14-2020 XR CHEST [...] base not completely included in the imaging [id number]. No pneumothorax, pleural effusion or focal air dense airspace consolidation. Scattered calcified pulmonary granulomas. Normal heart size. Scattered atherosclerotic changes of the aorta. Remote healed right posterior 4th rib fracture. No acute displaced rib fractures. IMPRESSION: 1. No acute cardiopulmonary process. 2. No acute displaced rib fractures. [employer] Workstation ID: [id number] Dictated by: MARIAJOSE ANDERSON on MonApr 14, 2020 1:42:57 PM EDT Transcribed by: IRISH BARNES on MonApr 14, 2020 2:11:28 PM EDT Finalized by: MARIAJOSE ANDERSON on MonApr 14, 2020 6:46:24 PM EDT Normal [facility] Comment on above: Order [...] base not completely included in the imaging [id number]. No pneumothorax, pleural effusion or focal air dense airspace consolidation. Scattered calcified pulmonary granulomas. Normal heart size. Scattered atherosclerotic changes of the aorta. Remote healed right posterior 4th rib fracture. No acute displaced rib fractures. IMPRESSION: 1. No acute cardiopulmonary process. 2. No acute displaced rib fractures. [employer] [id number]: XR CHES T PA/AP HISTORY: ORDERING SYSTEM PROVIDED HISTORY: Trauma Level 2, TECHNOLOGIST PROVIDED HISTORY: Injury/Trauma Reason for exam: level 2 trauma Cancer History: u Surgery, RadiationHistory: u Encounter Type: Initial Mechanism of injury: fall ORDERING SYSTEM PROVIDED DIAGNOSIS CODES: COMPARISON: 06/05/2019. FINDINGS: One view of the chest. Costophrenic sulci at the lung base not completely included in the imaging cfcwa-pf-ules. No pneumothorax, pleural effusion or focal air dense airspace consolidation. Scattered calcified pulmonary granulomas. Normal heart size. Scattered atherosclerotic changes of the aorta. Remote healed right posterior 4th rib fracture. No acute displaced rib fractures. [facility] 1. No acute cardiopulmonary process. 2. No acute displaced rib fractures. [employer] Workstation ID: [id number] [facility] US DOPPLER CAROTIDon 020 Non-Invasive Vascula r Patient: TONIO Oseguera [facility] Rec#: [id number] (Age): 1950(69y) Study Date: 12/04/2019 Room#: Type: Sex: M Reading: BRITTANY Reading: Cameron Munguia DO, RPVI Referring: FELICE JHAVERI Diesel Engineer: ALBERT INMAN Procedure Info: Study Quality: Carotid Duplex: adequate [...] appear to be warranted. Clinical correlation advised. Diesel Engineer's Comments:11/26/18 right ICA 0% ; left ICA [...] 15:54:04 by: Cameron Munguia DO, RPVI [facility], Rad In Heartlab Xper Echopacs - 12/04/2019 4:18 PM EST Non-Invasive Vascular Patient: TONIO Oseguera [facility] Rec#: [id number] (Age): 1950(69y) Study Date: 12/04/2019 Room#: Type: Sex: M Reading: BRITTANY Reading: Cameron Munguia DO, RPVI Referring: FELICE JHAVERI Diesel Engineer: ALBERT INMAN Procedure Info: Study Quality: Carotid Duplex: adequate [...] appear to be warranted. Clinical correlation advised. Diesel Engineer's Comments:11/26/18 right ICA 0% ; left ICA [...] 12/04/2019 15:54:04 by: Cameron Munguia DO, RPVI [facility] DOPPLER SEGMENTAL ARTERIA L LEGS W EXERCISEon 12-04-2019 Non-Invasive Vascula r Patient: TONIO Oseguera [facility] Rec#: [id number] (Age): 1950(69y) Study Date: 12/04/2019 Room#: Type: Sex: M Reading: Cameron Munguia DO, RPVI Reading: BRITTANY Referring: Cameron Munguia D.O. Diesel Engineer: Albert Inman RVT Procedure Info: [id number] Study Quality: Lower Arterial Doppler: adequate Diagnosis: [...] in the left leg. Clinical correlation advised. Diesel Engineer's Comments:05/07/18 [place] right CLEMENCIA 1.13 ; left CLEMENCIA .84 [...] at 12/04/2019 15:56:33 by: Cameron Munguia DO, YASMIN [facility] Interface, Rad In Heartlab Xper Echopacs - 12/04/2019 4:18 PM EST Non-Invasive Vascular Patient: TONIO Oseguera [facility] Rec#: [id number] (Age): 1950(69y) Study Date: 12/04/2019 Room#: Type: Sex: M Reading: Cameron Munguia DO, RPVI Reading: BRITTANY Referring: Cameron Munguia D.O. Diesel Engineer: Albert Inman RVT Procedure Info: [id number] Study Quality: Lower Arterial Doppler: adequate Diagnosis: [...] in the left leg. Clinical correlation advised. Diesel Engineer's Comments:05/07/18 [place] right CLEMENCIA 1.13 ; left CLEMENCIA .84 [...] signed at 12/04/2019 15:56:33 by: Cameron Munguia DO CHRIS [facility] ECG 12-LEADon 06-05-2019 Bret Fuentes MD 06/05/2019 1:46 PM EKG 12-lead Date/Time: 06/05/2019 1:21 PM Performed by: Bret Fuentes MD Authorized by: Bret Fuentes MD Interpreted by ED attending physician Comparison: not compared with previous ECG Rhythm: sinus rhythm BPM: 72 Conduction: conduction normal T Waves: T waves normal normal NE interval normal QRS interval Clinical impression: normal ECG [facility] POC B-type natriuretic pepti de (BNP)on 06-05-2019 Interpretation and review of laboratory results Normal [facility] Natriuretic peptide B (Bld) [Mass/Vol] 97.3 pg/mL <100 [facility] POC Basic Metabolic Panelon 06-05-2019 Calcium [Mass/Vol] 8.9 mg/dL 8.4 - 10. 2 mg/dL [facility] Chloride [Moles/Vol] 105 mmol/L 98 - 10 8 mmol/L [facility] CO2 [Moles/Vol] 28 mmol/L 21 - 32 mmol/L [facility] Creatinine [Mass/Vol] 1.1 mg/dL 0.8 - 1.3 mg/dL [facility] Glucose [Mass/Vol] 81 mg/dL 65 - 99 mg/dL [facility] Interpretation and review of laboratory results Abnormal [facility] Potassium [Moles/Vol] 3.4 mmol/L Low 3.5 - 5.1 mmol/L [facility] Sodium [Moles/Vol] 141 mmol/L 135 - 145 mmol/L [facility] Urea nitrogen [Mass/Vol] 16 mg/dL 8 - 25 mg/dL [facility] POC CBC and Differentialon 0 06-05-2019 Comment See Comment Critically abnormal (none) [facility] Comment on above: CRITICAL. CBCD reord ered and sent to . Platelet count non reportable due to clumping. Erythrocyte distribution width (RBC) [Entitic vol] 12.3 % 11.6 - 14.8 % [facility] Comment on above: This is a corrected result. Previous result was 12.2 % on 06/05/2019 at 1312 EDT Hematocrit (Bld) [Volume fraction] 38.1 % Low 41 - 53 % [facility] Comment on above: This is a corrected result. Previous result was 36.7 % on 06/05/2019 at 1312 EDT Hemoglobin (Bld) [Mass/Vol] 13.2 g/dL Low 13.5 - 17.5 g/dL [facility] Comment on above: This is a corrected result. Previous result was 12.9 g/dL on 06/05/2019 at 1312 EDT Interpretation and review of laboratory results Abnormal [facility] Lymphocytes (Bld) [#/Vol] 2.2 10*3/uL [facility] Comment on above: This is a corrected result. Previous result was 2.1 K/mcl on 06/05/2019 at 1312 EDT Lymphocytes/100 WBC (Bld) 23.7 % [facility] Comment on above: This is a corrected result. Previous result was 22.6 % on 06/05/2019 at 1312 EDT MCH (RBC) [Entitic mass] 36.4 pg High 26 - 34 pg [facility] Comment on above: This is a corrected result. Previous result was 36.6 pg on 06/05/2019 at 1312 EDT MCHC (RBC) [Mass/Vol] 34.6 g/dL 31 - 37 g/dL [facility] Comment on above: This is a corrected result. Previous result was 35.1 g/dL on 06/05/2019 at 1312 EDT MCV (RBC) [Entitic vol] 105.0 fL High 80 - 100 fL [facility] Comment on above: This is a corrected result. Previous result was 104.3 fL on 06/05/2019 at 1312 EDT Mixed 2.7 % [facility] Comment on above: This is a corrected result. Previous result was 3.1 % on 06/05/2019 at 1312 EDT Mixed Abs 0.3 K/mcl [facility] Neutrophil Abs 6.9 [facility] Comment on above: This is a corrected result. Previous result was 7.1 K/mcl on 06/05/2019 at 1312 EDT Neutrophils/100 WBC (Bld) 73.6 % [facility] Comment on above: This is a corrected result. Previous result was 74.3 % on 06/05/2019 at 1312 EDT Platelet mean volume (Bld) [Entitic vol] 12.2 fL 9 - 15.5 fL [facility] Comment on above: This is an appended report. These results have been appended to a previously final verified report. Platelets (Bld) [#/Vol] 212 10*3/uL [facility] Comment on above: This is an appended report. These results have been appended to a previously final verified report. RBC (Bld) [#/Vol] 3.63 10*6/uL Low [facility] Comment on above: This is a corrected result. Previous result was 3.52 M/mcL on 06/05/2019 at 1312 EDT WBC (Bld) [#/Vol] 9.40 10*3/uL [facility] Comment on above: This is a corrected result. Previous result was 9.50 K/mcL on 06/05/2019 at 1312 EDT POC Troponin Ion 06-05-2019 Interpretation and review of laboratory results Normal [facility] Troponin I.cardiac [Mass/Vol] ng/mL <0.05 ng/mL [facility] XR CHEST AP/PA AND LATon XR [...] on MonJun 05, 2019 12:57:52 PM EDT [facility] Comment on above: Order Comment: Injur [...] mild chronic degenerative changes. Workstation ID: [id number] [facility] EXAMINATION: XR CHES T AP/PA AND [...] rib fracture involving the right 4th rib. [facility] Nonacute two-view ch est with mild chronic degenerative changes. Workstation ID: [id number] [facility] CBC WITH AUTO DIFFERENTIALon 05-27-2019 Basophils (Bld) [#/Vol] 0.06 10*3/uL [facility] Basophils/100 WBC (Bld) 0.6 % [facility] Eosinophils (Bld) [#/Vol] 0.01 10*3/uL [facility] Eosinophils/100 WBC (Bld) 0.1 % [facility] Erythrocyte distribution width (RBC) [Entitic vol] 12.4 % 11.6 - 14.8 % [facility] Hematocrit (Bld) [Volume fraction] 35.5 % Low 41 - 53 % [facility] Hemoglobin (Bld) [Mass/Vol] 12.7 g/dL Low 13.5 - 17.5 g/dL [facility] Immature granulocytes (Bld) [#/Vol] 0.05 10*3/uL [facility] Immature granulocytes/100 WBC (Bld) 0.50 % [facility] Comment on above: The IG parameter is the percentage of metamyelocytes, myelocytes, and promyelocytes. Interpretation and review of laboratory results Abnormal [facility] Lymphocytes (Bld) [#/Vol] 1.78 10*3/uL [facility] Lymphocytes/100 WBC (Bld) 18.9 % [facility] MCH (RBC) [Entitic mass] 37.4 pg High 26 - 34 pg [facility] MCHC (RBC) [Mass/Vol] 35.8 g/dL 31 - 37 g/dL [facility] MCV (RBC) [Entitic vol] 104.4 fL High 80 - 100 fL [facility] Monocytes (Bld) [#/Vol] 0.84 10*3/uL [facility] Monocytes/100 WBC (Bld) 8.9 % [facility] Neutrophils (Bld) [#/Vol] 6.68 10*3/uL [facility] Neutrophils/100 WBC (Bld) 71.0 % [facility] Nucleated RBC (Bld) [#/Vol] 0.00 10*3/uL [facility] Nucleated RBC/100 WBC (Bld) [Ratio] 0.0 % [facility] Platelet mean volume (Bld) [Entitic vol] 11.2 fL 9 - 15.5 fL [facility] Platelets (Bld) [#/Vol] 116 10*3/uL Low [facility] RBC (Bld) [#/Vol] 3.40 10*6/uL Low [facility] WBC (Bld) [#/Vol] 9.42 10*3/uL [facility] CMPon 05-27-2019 Albumin [Mass/Vol] 3.2 g/dL 3.2 - 5.2 g/dL [facility] ALP [Catalytic activity/Vol] 42 U/L 40 - 150 U/L [facility] ALT [Catalytic activity/Vol] 28 U/L 14 - 65 U/L [facility] Anion gap [Moles/Vol] 13 mmol/L 10 - 2 0 mmol/L [facility] AST [Catalytic activity/Vol] 26 U/L 0 - 45 U/L [facility] Bilirubin [Mass/Vol] 0.4 mg/dL 0 - 1.3 mg/dL [facility] Calcium [Mass/Vol] 9.4 mg/dL 8.4 - 10. 2 mg/dL [facility] Chloride [Moles/Vol] 106 mmol/L 98 - 10 8 mmol/L [facility] Creatinine [Mass/Vol] 1.18 mg/dL 0.8 - 1.3 mg/dL [facility] GFR/1.73 sq M predicted among non-blacks MDRD (S/P/Bld) [Vol rate/Area] The eGFR should be used for monitoring renal function only and not for medication dosing. [facility] GFR/1.73 sq M.predicted CKD-EPI (S/P/Bld) [Vol rate/Area] 62 >=60 mL/min/1.73 m2 [facility] Glucose [Mass/Vol] 90 mg/dL 65 - 99 mg/dL [facility] HCO3 [Moles/Vol] 25 mmol/L 21 - 32 mmol/L [facility] Interpretation and review of laboratory results Normal [facility] Potassium [Moles/Vol] 3.9 mmol/L 3.5 - 5.1 mmol/L [facility] Protein [Mass/Vol] 6.8 g/dL 6 - 8 g/dL [facility]th Sodium [Moles/Vol] 140 mmol/L 135 - 145 mmol/L [facility] Urea nitrogen [Mass/Vol] 16 mg/dL 8 - 25 mg/dL [facility] Urea nitrogen/Creatinine [Mass ratio] 13.6 mg/mg [facility] Light Blue Topon 05-27-2019 Extra Tube Hold for add-ons. [facility] Comment on above: Auto resulted. ECG 12-LEADon 04-01-2019 Atrial Rate [facility] P [place] [facility] P-R Interval [facility] Q-T Interval [facility] Q-T Interval (corrected) [facility] QRS Duration [facility] QTC Calculation (Bezet) [facility] R [place] [facility] T [place] [facility] Ventricular Rate [facility] CT CHEST LOW DOSE LUNG SCREE ANTHONY Veloz 01-21-[address] evidence for developing pulmonary malignancy. Lung-RADs 1 Findings: No lung nodules; nodule(s) with specific calcifications: Complete, central, popcorn, concentric rings and fat containing nodules. Management: Continue annual screening with LDCT in 12 months. PRL/hb Workstation ID: [id number] [facility] EXAMINATION: CT CHES T LOW DOSE [...] organ F17.210 Cigarette Smoker COMPARISON: 01/11/2018 at [facility] in [place] and 09/17/2010 from [place]. TECHNIQUE: Dose reduction techniques were achieved by [...] radiodense material in the gallbladder suggesting gallstones. [facility] US DOPPLER CAROTIDon 019 Non-Invasive Vascula r Patient: TONIO Oseguera [facility] Rec#: [id number] (Age): 1950(68y) Study Date: 11/26/2018 Room#: Type: Sex: M Reading: Dr. Marv Krause MD, RPVI Reading: BRITTANY Referring: AQUILES BAY PAUL Diesel Engineer: ALBERT INMAN Procedure Info: [id number]... Study Quality: Carotid Duplex: adequate Diagnosis: I65.23 [...] of stenosis in the left subclavian artery. Diesel Engineer's Comments:05/07/18 Right ICA 0% ; left ICA [...] 11/26/2018 10:09:03 by: Dr. Marv Krause MD, [facility], Rad In [employer] - 11/26/2018 10:19 AM EST Non-Invasive Vascular Patient: TONIO Oseguera [facility] Rec#: [id number] (Age): 1950(68y) Study Date: 11/26/2018 Room#: Type: Sex: M Reading: Dr. Marv Krause MD, RPVI Reading: BRITTANY Referring: AQUILES BAY PAUL Diesel Engineer: ALBERT INMAN Procedure Info: [id number]... Study Quality: Carotid Duplex: adequate Diagnosis: I65.23 [...] of stenosis in the left subclavian artery. Diesel Engineer's Comments:05/07/18 Right ICA 0% ; left ICA [...] 10:09:03 by: Dr. Marv Krause MD, RPVI [facility] Ultrasound abdominal aorta d uplex limitedon 11-26-2018 Non-Invasive Vascula r Patient: TONIO Oseguera [facility] Rec#: [id number] (Age): 1950(68y) Study Date: 11/26/2018 Room#: Type: Sex: M Reading: BRITTANY Reading: Dr. Marv Krause MD, RPVI Referring: AQUILES BAY PAUL Diesel Engineer: Soraya Floyd, RVT, RDMS Procedure Info: [id number] Study Quality: Aneurysm Duplex: adequate Diagnosis: R09.89 [...] Value Units AP JAYME 0.71 cm TRV JAMYE 0.67 cm Left PSV Name Value Units JAYME 438 cm/sec History Carotid Artery Stenosis. Diabetes. Endarterectomy. Hyperlipidemia. Hypertension. Tobacco Use-Current. History Comments:RCEA Electronically signed at 11/26/2018 10:10:49 by: Dr. Marv Krause MD, RPVI [facility], Rad In [facility] - 11/26/2018 10:19 AM EST Non-Invasive Vascular Patient: TONIO Oseguera [facility] Rec#: [id number] (Age): 1950(68y) Study Date: 11/26/2018 Room#: Type: Sex: M Reading: BRITTANY Reading: Dr. Marv Krause MD, RPVI Referring: AQUILES BAY PAUL Diesel Engineer: Soraya Floyd, RVT, RDMS Procedure Info: [id number] Study Quality: Aneurysm Duplex: adequate Diagnosis: R09.89 [...] 10:10:49 by: Dr. Marv Krause MD, RPVI [facility] Dobutamine stress echocardio gramon 11-13-2018 Target HR bpm [facility] Stress Echocardiogra m Patient: TONIO Oseguera [facility] Rec#: [id number] (Age): 1950(68y) Height: 170(cm)/66(in) Study Date: 11/13/2018 Weight: 66.7(kg)/147(lb Room#: BSA: 1.77 Type: Loc: Sex: M Reading: Silvia Joshua M.D. Ordering ProvidDr. [place] MD Diesel Engineer: Faith Richey RN RDCS Supervising - Clarita [...] at 11/13/2018 13:09:45 by: Silvia Joshua M.D. [facility] Interface, Rad In [employer] - 11/13/2018 1:17 PM EST Stress Echocardiogram Patient: TONIO Oseguera [facility] Rec#: [id number] (Age): 1950(68y) Height: 170(cm)/66(in) Study Date: 11/13/2018 Weight: 66.7(kg)/147(lb Room#: BSA: 1.77 Type: Loc: Sex: M Reading: Silvia Joshua M.D. Ordering ProvidDr. [place] MD Diesel Engineer: Faith Richey RN RDCS Supervising - Clarita [...] at 11/13/2018 13:09:45 by: Silvia Joshua M.D. [facility] FASTINGon 11-12-2018 A:G RATIO 1.3 RATIO Normal 1.3-2.2 [facility] Comment on above: Performed By: #### F X, CMPF, LIP2 #### Testing performed at [address] [address] Albumin mass conc 3.5 G/dl Normal 3.5-5.0 [facility] Comment on above: Performed By: #### F X, CMPF, LIP2 #### Testing performed at [address] [address] ALP enzyme act/vol 49 U/L Normal 38-126 [facility] Comment on above: Performed By: #### F X, CMPF, LIP2 #### Testing performed at [address] [address] ALT enzyme act/vol 20 U/L Normal 17-63 [facility] Comment on above: Performed By: #### F X, CMPF, LIP2 #### Testing performed at [address] [address] AST enzyme act/vol 25 U/L Normal 15-41 [facility] Comment on above: Performed By: #### F X, CMPF, LIP2 #### Testing performed at [address] [address] Bilirubin mass conc 0.6 mg/dL Normal 0.2-1.2 [facility] Comment on above: Performed By: #### F X, CMPF, LIP2 #### Testing performed at [address] [address] Creatinine mass conc 1.3 mg/dL High 0.66-1.25 [facility] Comment on above: Performed By: #### F X, CMPF, LIP2 #### Testing performed at [address] [address] EST. GFR, >60 Normal [facility] Comment on above: Performed By: #### F X, CMPF, LIP2 #### Testing performed at [address] [address] EST. GFR,Non 58 ml/min/1.73sq.m Normal [facility] Comment on above: Performed By: #### F X, CMPF, LIP2 #### Testing performed at [address] [address] GFR/1.73 sq M predicted among non-blacks MDRD vol rate/area (S/P/Bld) Average GFR for 60-69 years old = 85. Normal [facility] Comment on above: Result Comment: Shampooer ulises Kidney disease, GFR = <60. Kidney failure, GFR = <15. The GFR estimate is not adjusted for extreme body surface area or acute process, nor has it been validated for women or ethnic groups other than and . Performed By: #### F X, CMPF, LIP2 #### Testing performed at [address] [address] Protein mass conc 6.3 g/dL Normal 6.3-8.2 [facility] Comment on above: Performed By: #### F X, CMPF, LIP2 #### Testing performed at [address] [address] Urea nitrogen mass conc 28 mg/dL High 7-20 [facility] Comment on above: Performed By: #### F X, CMPF, LIP2 #### Testing performed at [address] [address] Calcium mass conc 9.0 mg/dL Normal 8.4-10.2 [facility] Comment on above: Performed By: #### F X, CMPF, LIP2 #### Testing performed at [address] [address] Chloride molar conc 101 mmol/L Normal 98-107 [facility] Comment on above: Performed By: #### F X, CMPF, LIP2 #### Testing performed at [address] [address] CO2 molar conc 27 mmol/L Normal 22-30 [facility] Comment on above: Performed By: #### F X, CMPF, LIP2 #### Testing performed at [address] [address] Glucose mass conc 111 mg/dL High 70-100 [facility] Comment on above: Result Comment: NORMAL <100 mg/dL PREDIABETES 101-126 mg/dL DIABETES 126 mg/dL or higher Performed By: #### F X, CMPF, LIP2 #### Testing performed at [address] [address] Potassium molar conc 4.0 mmol/L Normal 3.5-5.1 [facility] Comment on above: Performed By: #### F X, CMPF, LIP2 #### Testing performed at [address] [address] Sodium molar conc 138 mmol/L Normal 136-145 [facility] Comment on above: Performed By: #### F X, CMPF, LIP2 #### Testing performed at [address] [place] [address] FAX REQUESTon 11-12-2018 FAX TO FAX TO IN [facility] Comment on above: Performed By: #### F X, PSA #### Testing performed at [address] [address] FAX TO FAX TO IN [facility] Comment on above: Performed By: #### F X, HA1CT #### Testing performed at [address] [address] FAX TO FAX TO IN [facility] Comment on above: Performed By: #### F X, CMPF, LIP2 #### Testing performed at [address] [address] HEMOGLOBIN A1Con 11-12-2018 Hemoglobin A1c/Hemoglobin.total mass fraction (Bld) 105 mg/dL Normal [facility] Comment on above: Performed By: #### F X, HA1CT #### Testing performed at [address] [address] Hemoglobin A1c/Hemoglobin.total mass fraction (Bld) 5.3 % Normal <6 [facility] Comment on above: Result Comment: NORMAL <5.7% PREDIABETES 5.7-6.4% DIABETES 6.5% OR HIGHER Performed By: #### F X, HA1CT #### Testing performed at [address] [address] LIPID PROFILEon 11-12-2018 Cholesterol in HDL mass conc 51 mg/dL Normal 40-60 [facility] Comment on above: Performed By: #### F X, CMPF, LIP2 #### Testing performed at [address] [address] Cholesterol in LDL mass conc 81 mg/dL Normal 0-100 [facility] Comment on above: Performed By: #### F X, CMPF, LIP2 #### Testing performed at [address] [address] Cholesterol in VLDL mass conc 38 mg/dL High 5.0-25.0 [facility] Comment on above: Performed By: #### F X, CMPF, LIP2 #### Testing performed at [address] [address] Cholesterol mass conc 170 mg/dL Normal 100-199 [facility] Comment on above: Performed By: #### F X, CMPF, LIP2 #### Testing performed at [address] [address] Cholesterol.total/Caren sterol in HDL mass ratio 3.33 {ratio} Normal [facility] Comment on above: Result Comment: RISK TOTAL/HDL RATIO MEN WOMEN 1/2 AVERAGE 3.43 3.27 AVERAGE 4.97 4.44 2X AVERAGE 9.55 7.05 3X AVERAGE 23.99 11.04 Performed By: #### F X, CMPF, LIP2 #### Testing performed at [address] [address] Triglyceride mass conc 192 mg/dL High <150 [facility] Comment on above: Performed By: #### F X, CMPF, LIP2 #### Testing performed at [address] [address] PSA,TOTALon 11-12-2018 PSA,TOTAL 0.990 NG/ML Normal 0-4 [facility] Comment on above: Result Comment: OBTAIN BASELINE BETWEEN AGES OF 45-75 LESS THAN 1.0 ng/mL REPEAT TESTING AT 2-4 YEARS 1.0-3.0 ng/mL REPEAT TESTING AT 1-2 YEARS GREATER THAN 3.0 ng/mL REPEAT PSA,DANG, AND WORKUP FOR BENIGN DISEASE AGE GREATER THAN 75, PSA LESS THAN 3 ng/mL REPEAT TESTING IN 1-4 YEARS Performed By: #### F X, PSA #### Testing performed at [facility] [address] [place] [address] CBC AND DIFFERENTIALon 09-19 Basophils Auto #/vol (Bld) 0.1 10*3/uL Invalid Interpretation Code [facility] Basophils/100 WBC Auto (Bld) 2.0 % Invalid Interpretation Code [facility] Eosinophils Auto #/vol (Bld) 0.2 10*3/uL Invalid Interpretation Code [facility] Eosinophils/100 WBC Auto (Bld) 3.8 % Invalid Interpretation Code [facility] Erythrocyte distribution width Auto Ratio (RBC) 13.4 % Invalid Interpretation Code 10 - 14.3 % [facility] Hematocrit Auto Volume Fraction (Bld) 43.6 % Invalid Interpretation Code 37.9 - 49.2 % [facility] Hemoglobin mass conc (Bld) 14.8 g/dL Invalid Interpretation Code 12.9 - 16.9 g/dL [facility] Interpretation and review of laboratory results Abnormal Invalid Interpretation Code [facility] Lymphocytes Auto #/vol (Bld) 2.4 10*3/uL Invalid Interpretation Code [facility] Lymphocytes/100 WBC Auto (Bld) 38.9 % Invalid Interpretation Code [facility] MCH Auto Entitic mass (RBC) 37.6 pg High 27.7 - 34.6 pg [facility] MCHC Auto mass conc (RBC) 34.0 g/dL Invalid Interpretation Code 32.9 - 35.5 g/dL [facility] MCV Auto Entitic volume (RBC) 110.7 fL High [facility] Monocytes Auto #/vol (Bld) 0.5 10*3/uL Invalid Interpretation Code [facility] Monocytes/100 WBC Auto (Bld) 8.1 % Invalid Interpretation Code [facility] Neutrophils Auto #/vol (Bld) 2.9 10*3/uL Invalid Interpretation Code [facility] Platelet mean volume Auto Entitic volume (Bld) 10.2 fL Invalid Interpretation Code [facility] Platelets Auto #/vol (Bld) 169 10*3/uL Invalid Interpretation Code [facility] RBC Auto #/vol (Bld) 3.94 10*6/uL Low [place] [facility] Segmented Neut 47.2 % Invalid Interpretation Code [facility] WBC Auto #/vol (Bld) 6.1 10*3/uL Invalid Interpretation Code [facility] CBC with Diffon 09-19-2018 Basophils #/vol (Bld) 0.1 K/mcL Normal 0-0.2 [facility] Comment on above: Performed By: #### F ERR, LYTES, CALCM, BUNCR, IRON, TFERR, ALB, PHOS, PTHI #### Unless otherwise noted, all testing performed by [place] [address] CLIA: [id number] Police Captain Senior: Eric Moser M.D. Basophils/100 WBC (Bld) 2.0 % Normal O [facility] Comment on above: Performed By: #### F ERR, LYTES, CALCM, BUNCR, IRON, TFERR, ALB, PHOS, PTHI #### Unless otherwise noted, all testing performed by [place] [address] CLIA: [id number] Police Captain Senior: Eric Moser M.D. Eosinophils #/vol (Bld) 0.2 K/mcL Normal 0-0.5 [facility] Comment on above: Performed By: #### F ERR, LYTES, CALCM, BUNCR, IRON, TFERR, ALB, PHOS, PTHI #### Unless otherwise noted, all testing performed by [place] [address] CLIA: [id number] Police Captain Senior: Eric Moser M.D. Eosinophils/100 WBC (Bld) 3.8 % [facility] Comment on above: Performed By: #### F ERR, LYTES, CALCM, BUNCR, IRON, TFERR, ALB, PHOS, PTHI #### Unless otherwise noted, all testing performed by [place] [address] CLIA: [id number] Police Captain Senior: Eric Moser M.D. Erythrocyte distribution width Ratio (RBC) 13.4 % Normal 10-14.3 [facility] Comment on above: Performed By: #### F ERR, LYTES, CALCM, BUNCR, IRON, TFERR, ALB, PHOS, PTHI #### Unless otherwise noted, all testing performed by [place] [address] CLIA: [id number] Police Captain Senior: Eric Moser M.D. Hematocrit Volume Fraction (Bld) 43.6 % Normal 37.9-49.2 [facility] Comment on above: Performed By: #### F ERR, LYTES, CALCM, BUNCR, IRON, TFERR, ALB, PHOS, PTHI #### Unless otherwise noted, all testing performed by [place] [address] CLIA: [id number] Police Captain Senior: Eric Moser M.D. Hemoglobin mass conc (Bld) 14.8 g/dL Normal 12.9-16.9 [facility] Comment on above: Performed By: #### F ERR, LYTES, CALCM, BUNCR, IRON, TFERR, ALB, PHOS, PTHI #### Unless otherwise noted, all testing performed by [place] [address] CLIA: [id number] Police Captain Senior: Eric Moser M.D. Lymphocytes #/vol (Bld) 2.4 K/mcL Normal 0.9-3.6 [facility] Comment on above: Performed By: #### F ERR, LYTES, CALCM, BUNCR, IRON, TFERR, ALB, PHOS, PTHI #### Unless otherwise noted, all testing performed by [place] [address] CLIA: [id number] Police Captain Senior: Eric Moser M.D. Lymphocytes/100 WBC (Bld) 38.9 % Normal [facility] Comment on above: Performed By: #### F ERR, LYTES, CALCM, BUNCR, IRON, TFERR, ALB, PHOS, PTHI #### Unless otherwise noted, all testing performed by [place] [address] CLIA: [id number] Police Captain Senior: Eric Moser M.D. MCH Entitic mass (RBC) 37.6 pg High 27.7-34.6 [facility] Comment on above: Performed By: #### F ERR, LYTES, CALCM, BUNCR, IRON, TFERR, ALB, PHOS, PTHI #### Unless otherwise noted, all testing performed by [place] [address] CLIA: [id number] Police Captain Senior: Eric Moser M.D. MCHC mass conc (RBC) 34.0 g/dL Normal 32.9-35.5 [facility] Comment on above: Performed By: #### F ERR, LYTES, CALCM, BUNCR, IRON, TFERR, ALB, PHOS, PTHI #### Unless otherwise noted, all testing performed by [place] [address] CLIA: [id number] Police Captain Senior: Eric Moser M.D. MCV Entitic volume (RBC) 110.7 fL High 82.8-99.3 [facility] Comment on above: Performed By: #### F ERR, LYTES, CALCM, BUNCR, IRON, TFERR, ALB, PHOS, PTHI #### Unless otherwise noted, all testing performed by [place] [address] CLIA: [id number] Police Captain Senior: Eric Moser M.D. Monocytes #/vol (Bld) 0.5 K/mcL Normal 0.2-0.6 [facility] Comment on above: Performed By: #### F ERR, LYTES, CALCM, BUNCR, IRON, TFERR, ALB, PHOS, PTHI #### Unless otherwise noted, all testing performed by [place] [phone] CLIA: [id number] Police Captain Senior: Eric Moser M.D. Monocytes/100 WBC (Bld) 8.1 % Normal [facility] Comment on above: Performed By: #### F ERR, LYTES, CALCM, BUNCR, IRON, TFERR, ALB, PHOS, PTHI #### Unless otherwise noted, all testing performed by [place] [address] CLIA: [id number] Police Captain Senior: Eric Moser M.D. Neutrophils #/vol (Bld) 2.9 K/mcL Normal 1.4-6.8 [facility] Comment on above: Performed By: #### F ERR, LYTES, CALCM, BUNCR, IRON, TFERR, ALB, PHOS, PTHI #### Unless otherwise noted, all testing performed by [place] [address] CLIA: [id number] Police Captain Senior: Eric Moser M.D. Platelet mean volume Entitic volume (Bld) 10.2 fL Normal 6.6-10.8 [facility] Comment on above: Performed By: #### F ERR, LYTES, CALCM, BUNCR, IRON, TFERR, ALB, PHOS, PTHI #### Unless otherwise noted, all testing performed by [place] [address] CLIA: [id number] Police Captain Senior: Eric Moser M.D. Platelets #/vol (Bld) 169 K/mcL Normal 139-354 [facility] Comment on above: Performed By: #### F ERR, LYTES, CALCM, BUNCR, IRON, TFERR, ALB, PHOS, PTHI #### Unless otherwise noted, all testing performed by [place] [phone] CLIA: [id number] Police Captain Senior: Eric Moser M.D. RBC #/vol (Bld) 3.94 M/mcL Low 4.0-5.5 [facility] Comment on above: Performed By: #### F ERR, LYTES, CALCM, BUNCR, IRON, TFERR, ALB, PHOS, PTHI #### Unless otherwise noted, all testing performed by [place] [address] CLIA: [id number] Police Captain Senior: Eric Moser M.D. Segmented Neut % 47.2 % Normal [facility] Comment on above: Performed By: #### F ERR, LYTES, CALCM, BUNCR, IRON, TFERR, ALB, PHOS, PTHI #### Unless otherwise noted, all testing performed by [place] [address] CLIA: [id number] Police Captain Senior: Eric Moser M.D. WBC #/vol (Bld) 6.1 K/mcL Normal 3.6-10.4 [facility] Comment on above: Performed By: #### F ERR, LYTES, CALCM, BUNCR, IRON, TFERR, ALB, PHOS, PTHI #### Unless otherwise noted, all testing performed by [facility] [address] [place] [id number] CLIA: [id number] Police Captain Senior: Eric Moser M.D. Comprehensive Metabolic Pane shelby 09-19-2018 Albumin mass conc 3.1 g/dL Low 3.2 - 5.2 g/dL [facility] ALP enzyme act/vol 59 U/L Invalid Interpretation Code 40 - 150 U/L [facility] ALT enzyme act/vol 33 U/L Invalid Interpretation Code 14 - 65 U/L [facility] Comment on above: This test result alfredo ht be falsely depressed or falsely elevated on samples drawn from patients taking Sulfasalazine and Sulfapyridine. Venipuncture should occur prior to taking either of these drugs. AST enzyme act/vol 29 U/L Invalid Interpretation Code 0 - 45 U/L [facility] Comment on above: This test result alfredo ht be falsely depressed or falsely elevated on samples drawn from patients taking Sulfasalazine and Sulfapyridine. Venipuncture should occur prior to taking either of these drugs. Bilirubin mass conc 0.3 mg/dL Invalid Interpretation Code 0.3 - 1.2 mg/dL [facility] Calcium mass conc 9.2 mg/dL Invalid Interpretation Code 8.4 - 10.2 mg/dL [facility] Chloride molar conc 106 mmol/L Invalid Interpretation Code 98 - 108 mmol/L [facility] CO2 molar conc 26 mmol/L Invalid Interpretation Code 21 - 32 mmol/L [facility] Creatinine mass conc 1.14 mg/dL Invalid Interpretation Code 0.8 - 1.3 mg/dL [facility] GFR/1.73 sq M predicted among blacks MDRD vol rate/area (S/P/Bld) mL/min/{1.73_m2} Invalid Interpretation Code ml/min/1.73s q.m [facility] Comment on above: GFR Calc GFR/1.73 sq M predicted among non-blacks MDRD vol rate/area (S/P/Bld) mL/min/{1.73_m2} Invalid Interpretation Code ml/min/1.73s q.m [facility] Comment on above: Non- GFR [...] 105 mg/dL High 70 - 99 mg/dL [facility] Comment on above: This test result alfredo ht be falsely depressed or falsely elevated on samples drawn from patients taking Sulfasalazine and Sulfapyridine. Venipuncture should occur prior to taking either of these drugs. Interpretation and review of laboratory results Abnormal Invalid Interpretation Code [facility] Potassium molar conc 3.9 mmol/L Invalid Interpretation Code 3.5 - 5.1 mmol/L [facility] Protein mass conc 6.8 g/dL Invalid Interpretation Code 6 - 8 g/dL [facility] Sodium molar conc 139 mmol/L Invalid Interpretation Code 135 - 145 mmol/L [facility] Urea nitrogen mass conc 19 mg/dL Invalid Interpretation Code 8 - 25 mg/dL [facility] Albumin mass conc 3.1 g/dL Low 3.2-5.2 [facility] Comment on above: Performed By: #### F ERR, LYTES, CALCM, BUNCR, IRON, TFERR, ALB, PHOS, PTHI #### Unless otherwise noted, all testing performed by [address] [address] CLIA: [id number] Police Captain Senior: Eric Moser M.D. ALP enzyme act/vol 59 U/L Normal 40-150 [facility] Comment on above: Performed By: #### F ERR, LYTES, CALCM, BUNCR, IRON, TFERR, ALB, PHOS, PTHI #### Unless otherwise noted, all testing performed by [place] [address] CLIA: [id number] Police Captain Senior: Eric Moser M.D. ALT enzyme act/vol 33 U/L Normal 14-65 [facility] Comment on above: Result Comment: This test result might be falsely depressed or falsely elevated on samples drawn from patients taking Sulfasalazine and Sulfapyridine. Venipuncture should occur prior to taking either of these drugs. Performed By: #### F ERR, LYTES, CALCM, BUNCR, IRON, TFERR, ALB, PHOS, PTHI #### Unless otherwise noted, all testing performed by [place] [phone] CLIA: [id number] Police Captain Senior: Eric Moser M.D. AST enzyme act/vol 29 U/L Normal 0-45 [facility] Comment on above: Result Comment: This test result might be falsely depressed or falsely elevated on samples drawn from patients taking Sulfasalazine and Sulfapyridine. Venipuncture should occur prior to taking either of these drugs. Performed By: #### F ERR, LYTES, CALCM, BUNCR, IRON, TFERR, ALB, PHOS, PTHI #### Unless otherwise noted, all testing performed by [place] [address] CLIA: [id number] Police Captain Senior: Eric Moser M.D. Bilirubin mass conc 0.3 mg/dL Normal 0.3-1.2 [facility] Comment on above: Performed By: #### F ERR, LYTES, CALCM, BUNCR, IRON, TFERR, ALB, PHOS, PTHI #### Unless otherwise noted, all testing performed by [place] [address] CLIA: [id number] Police Captain Senior: Eric Moser M.D. Calcium mass conc 9.2 mg/dL Normal 8.4-10.2 [facility] Comment on above: Performed By: #### F ERR, LYTES, CALCM, BUNCR, IRON, TFERR, ALB, PHOS, PTHI #### Unless otherwise noted, all testing performed by [place] [address] CLIA: [id number] Police Captain Senior: Eric Moser M.D. Chloride molar conc 106 mmol/L Normal 98-108 [facility] Comment on above: Performed By: #### F ERR, LYTES, CALCM, BUNCR, IRON, TFERR, ALB, PHOS, PTHI #### Unless otherwise noted, all testing performed by [place] [address] CLIA: [id number] Police Captain Senior: Eric oMser M.D. CO2 molar conc 26 mmol/L Normal 21-32 [facility] Comment on above: Performed By: #### F ERR, LYTES, CALCM, BUNCR, IRON, TFERR, ALB, PHOS, PTHI #### Unless otherwise noted, all testing performed by [place] [address] CLIA: [id number] Police Captain Senior: Eric Moser M.D. Creatinine mass conc 1.14 mg/dL Normal 0.80-1.30 [facility] Comment on above: Performed By: #### F ERR, LYTES, CALCM, BUNCR, IRON, TFERR, ALB, PHOS, PTHI #### Unless otherwise noted, all testing performed by [place] [address] CLIA: [id number] Police Captain Senior: Eric Moser M.D. GFR/1.73 sq M predicted among blacks MDRD vol rate/area (S/P/Bld) mL/min/{1.73_m2} Normal [facility] Comment on above: Result Comment: Afri can Gambian GFR Calc Performed By: #### F ERR, LYTES, CALCM, BUNCR, IRON, TFERR, ALB, PHOS, PTHI #### Unless otherwise noted, all testing performed by [place] [address] CLIA: [id number] Police Captain Senior: Eric Moser M.D. GFR/1.73 sq M predicted among non-blacks MDRD vol rate/area (S/P/Bld) mL/min/{1.73_m2} Normal [facility] Comment on above: Result Comment: Non- [...] Unless otherwise noted, all testing performed by [address] [place] [address] CLIA: [id number] Police Captain Senior: Eric Moser M.D. Glucose mass conc 105 mg/dL High 70-99 [facility] Comment on above: Result Comment: This test result might be falsely depressed or falsely elevated on samples drawn from patients taking Sulfasalazine and Sulfapyridine. Venipuncture should occur prior to taking either of these drugs. Performed By: #### F ERR, LYTES, CALCM, BUNCR, IRON, TFERR, ALB, PHOS, PTHI #### Unless otherwise noted, all testing performed by [place] [address] CLIA: [id number] Police Captain Senior: Eric Moser M.D. Potassium molar conc 3.9 mmol/L Normal 3.5-5.1 [facility] Comment on above: Performed By: #### F ERR, LYTES, CALCM, BUNCR, IRON, TFERR, ALB, PHOS, PTHI #### Unless otherwise noted, all testing performed by [place] [address] CLIA: [id number] Police Captain Senior: Eric Moser M.D. Protein mass conc 6.8 g/dL Normal 6.0-8.0 [facility] Comment on above: Performed By: #### F ERR, LYTES, CALCM, BUNCR, IRON, TFERR, ALB, PHOS, PTHI #### Unless otherwise noted, all testing performed by [place] [address] CLIA: [id number] Police Captain Senior: Eric Moser M.D. Sodium molar conc 139 mmol/L Normal 135-145 [facility] Comment on above: Performed By: #### F ERR, LYTES, CALCM, BUNCR, IRON, TFERR, ALB, PHOS, PTHI #### Unless otherwise noted, all testing performed by [place] [address] CLIA: [id number] Police Captain Senior: Eric Moser M.D. Urea nitrogen mass conc 19 mg/dL Normal 8-25 [facility] Comment on above: Performed By: #### F ERR, LYTES, CALCM, BUNCR, IRON, TFERR, ALB, PHOS, PTHI #### Unless otherwise noted, all testing performed by [place] [address] CLIA: [id number] Police Captain Senior: Eric Moser M.D. Ferritinon 09-19-2018 Ferritin [Mass/volume] in Serum or Plasma 76 ng/mL Invalid Interpretation Code 30 - 400 ng/mL [facility] Comment on above: Samples from patient s routinely receiving high dose biotin therapy (100-300 mg/day) may show falsely decreased results. Please correlate clinically. Ferritin mass conc 76 ng/mL Normal 30-400 [facility] Comment on above: Result Comment: Samp les from patients routinely receiving high dose biotin therapy (100-300 mg/day) may show falsely decreased results. Please correlate clinically. Performed By: #### F ERR, LYTES, CALCM, BUNCR, IRON, TFERR, ALB, PHOS, PTHI #### Unless otherwise noted, all testing performed by [place] [address] CLIA: [id number] Police Captain Senior: Eric Moser M.D. Reticulocyteon 09-19-2018 Reticulocytes 1.42 % Invalid Interpretation Code 0.5 - 1.7 % [facility] Reticulocyte 1.42 % Normal 0.5-1.7 [facility] Comment on above: Performed By: #### F ERR, LYTES, CALCM, BUNCR, IRON, TFERR, ALB, PHOS, PTHI #### Unless otherwise noted, all testing performed by [place] [address] CLIA: [id number] Police Captain Senior: Eric Moser M.D. SPINE LUMBAR 2 OR 3 VIEWSon 09-19-2018 SPINE LUMBAR 2 OR 3 VIEWS Final Report Accession No: [id number] Performed: Sep 19 2018 11:51AM Examination: [...] DONALD M.D. Trans: istumb : cc: Normal [facility] Albuminon 07-02-2018 Albumin mass conc 3.4 g/dL Normal 3.2-5.2 [facility] Comment on above: Performed By: #### F ERR, LYTES, CALCM, BUNCR, IRON, TFERR, ALB, PHOS, PTHI #### Unless otherwise noted, all testing performed by [place] [address] CLIA: [id number] Police Captain Senior: Eric Moser M.D. Albumin mass conc 3.4 g/dL Invalid Interpretation Code 3.2 - 5.2 g/dL [facility] BUN and Creatinineon 018 Creatinine mass conc 1.14 mg/dL Normal 0.80-1.30 [facility] Comment on above: Performed By: #### F ERR, LYTES, CALCM, BUNCR, IRON, TFERR, ALB, PHOS, PTHI #### Unless otherwise noted, all testing performed by [place] [address] CLIA: [id number] Police Captain Senior: Eric Moser M.D. GFR/1.73 sq M predicted among blacks MDRD vol rate/area (S/P/Bld) mL/min/{1.73_m2} Normal [facility] Comment on above: Result Comment: Afri can Gambian GFR Calc Performed By: #### F ERR, LYTES, CALCM, BUNCR, IRON, TFERR, ALB, PHOS, PTHI #### Unless otherwise noted, all testing performed by [place] [address] CLIA: [id number] Police Captain Senior: Eric Moser M.D. GFR/1.73 sq M predicted among non-blacks MDRD vol rate/area (S/P/Bld) mL/min/{1.73_m2} Normal [facility] Comment on above: Result Comment: Non- [...] Unless otherwise noted, all testing performed by [place] [address] CLIA: [id number] Police Captain Senior: Eric Moser M.D. Urea nitrogen mass conc 21 mg/dL Normal 8-25 [facility] Comment on above: Performed By: #### F ERR, LYTES, CALCM, BUNCR, IRON, TFERR, ALB, PHOS, PTHI #### Unless otherwise noted, all testing performed by [place] [address] CLIA: [id number] Police Captain Senior: Eric Moser M.D. Calciumon 07-02-2018 Calcium mass conc 8.7 mg/dL Normal 8.4-10.2 [facility] Comment on above: Performed By: #### F ERR, LYTES, CALCM, BUNCR, IRON, TFERR, ALB, PHOS, PTHI #### Unless otherwise noted, all testing performed by [place] [address] CLIA: [id number] Police Captain Senior: Eric Moser M.D. Calcium Levelon 07-02-2018 Calcium mass conc 8.7 mg/dL Invalid Interpretation Code 8.4 - 10.2 mg/dL [facility] Electrolyte Panelon 07-02-20 18 Chloride molar conc 108 mmol/L Invalid Interpretation Code 98 - 108 mmol/L [facility] CO2 molar conc 16 mmol/L Low 21 - 32 mmol/L [facility] Interpretation and review of laboratory results Abnormal Invalid Interpretation Code [facility] Potassium molar conc 4.2 mmol/L Invalid Interpretation Code 3.5 - 5.1 mmol/L [facility] Sodium molar conc 141 mmol/L Invalid Interpretation Code 135 - 145 mmol/L [facility] Electrolyteson 07-02-2018 Chloride molar conc 108 mmol/L Normal 98-108 [facility] Comment on above: Performed By: #### F ERR, LYTES, CALCM, BUNCR, IRON, TFERR, ALB, PHOS, PTHI #### Unless otherwise noted, all testing performed by [place] [address] CLIA: [id number] Police Captain Senior: Eric Moser M.D. CO2 molar conc 16 mmol/L Low 21-32 [facility] Comment on above: Performed By: #### F ERR, LYTES, CALCM, BUNCR, IRON, TFERR, ALB, PHOS, PTHI #### Unless otherwise noted, all testing performed by [place] [address] CLIA: [id number] Police Captain Senior: Eric Moser M.D. Potassium molar conc 4.2 mmol/L Normal 3.5-5.1 [facility] Comment on above: Performed By: #### F ERR, LYTES, CALCM, BUNCR, IRON, TFERR, ALB, PHOS, PTHI #### Unless otherwise noted, all testing performed by [place] [address] CLIA: [id number] Police Captain Senior: Eric Moser M.D. Sodium molar conc 141 mmol/L Normal 135-145 [facility] Comment on above: Performed By: #### F ERR, LYTES, CALCM, BUNCR, IRON, TFERR, ALB, PHOS, PTHI #### Unless otherwise noted, all testing performed by [place] [address] CLIA: [id number] Police Captain Senior: Eric Moser M.D. Hemoglobin and Hematocriton 07-02-2018 Hematocrit Auto Volume Fraction (Bld) 41.0 % Invalid Interpretation Code 37.9 - 49.2 % [facility] Hemoglobin mass conc (Bld) 13.9 g/dL Invalid Interpretation Code 12.9 - 16.9 g/dL [facility] Hgb and Hcton 07-02-2018 Hematocrit Volume Fraction (Bld) 41.0 % Normal 37.9-49.2 [facility] Comment on above: Performed By: #### F ERR, LYTES, CALCM, BUNCR, IRON, TFERR, ALB, PHOS, PTHI #### Unless otherwise noted, all testing performed by [place] [address] CLIA: [id number] Police Captain Senior: Eric Moser M.D. Hemoglobin mass conc (Bld) 13.9 g/dL Normal 12.9-16.9 [facility] Comment on above: Performed By: #### F ERR, LYTES, CALCM, BUNCR, IRON, TFERR, ALB, PHOS, PTHI #### Unless otherwise noted, all testing performed by [place] [address] CLIA: [id number] Police Captain Senior: Eric Moser M.D. Magnesiumon 07-02-2018 Magnesium mass conc 1.7 mg/dL Normal 1.6-2.4 [facility] Comment on above: Performed By: #### F ERR, LYTES, CALCM, BUNCR, IRON, TFERR, ALB, PHOS, PTHI #### Unless otherwise noted, all testing performed by [place] [address] CLIA: [id number] Police Captain Senior: Eric Moser M.D. Magnesium Levelon 07-02-2018 Magnesium mass conc 1.7 mg/dL Invalid Interpretation Code 1.6 - 2.4 mg/dL [facility] Parathyroid Hormoneon 2017 Parathyroid Hormone 15.9 pg/mL Low 18.4-80.1 [facility] Comment on above: Result Comment: Samp les from patients routinely receiving high dose biotin therapy may show falsely depressed results. Additional information may be required for diagnosis. Performed By: #### F ERR, LYTES, CALCM, BUNCR, IRON, TFERR, ALB, PHOS, PTHI #### Unless otherwise noted, all testing performed by [place] [address] CLIA: [id number] Police Captain Senior: Eric Moser M.D. Interpretation and review of laboratory results Abnormal Invalid Interpretation Code [facility] Parathyroid Hormone 15.9 pg/mL Low 18.4 - 8 0.1 pg/mL [facility] Comment on above: Samples from patient s routinely receiving high dose biotin therapy may show falsely depressed results. Additional information may be required for diagnosis. Phosphoruson 07-02-2018 Phosphate mass conc 3.7 mg/dL Normal 2.3-3.7 [facility] Comment on above: Performed By: #### F ERR, LYTES, CALCM, BUNCR, IRON, TFERR, ALB, PHOS, PTHI #### Unless otherwise noted, all testing performed by [place] [address] CLIA: [id number] Police Captain Senior: Eric Moser M.D. Phosphate mass conc 3.7 mg/dL Invalid Interpretation Code 2.3 - 3.7 mg/dL [facility] Protein Panel, Urineon 07-02 Creatinine, Urine Random 161.00 mg/dL Normal [facility] Comment on above: Result Comment: No e stablished reference range. Performed By: #### F ERR, LYTES, CALCM, BUNCR, IRON, TFERR, ALB, PHOS, PTHI #### Unless otherwise noted, all testing performed by [place] [address] CLIA: [id number] Police Captain Senior: Eric Moser M.D. Protein Creatinine Ratio 3.66 High 0.0-0.2 [facility] Comment on above: Performed By: #### F ERR, LYTES, CALCM, BUNCR, IRON, TFERR, ALB, PHOS, PTHI #### Unless otherwise noted, all testing performed by [place] [address] CLIA: [id number] Police Captain Senior: Eric Moser M.D. Protein mass conc (U) 589.2 mg/dL Normal [facility] Comment on above: Performed By: #### F ERR, LYTES, CALCM, BUNCR, IRON, TFERR, ALB, PHOS, PTHI #### Unless otherwise noted, all testing performed by [place] [address] CLIA: [id number] Police Captain Senior: Eric Moser M.D. Creatinine, Urine Random 161.00 mg/dL Invalid Interpretation Code [facility] Comment on above: No established refer ence range. Interpretation and review of laboratory results Abnormal Invalid Interpretation Code [facility] Protein, Urine Random 589.2 mg/dL Invalid Interpretation Code [facility] Protein/Creatinine Ratio, Urine 3.66 High [facility] CBC and Differentialon 05-10 Basophils Auto #/vol (Bld) 0.1 K/mcL Invalid Interpretation Code 0 - 0.2 [facility] Basophils/100 WBC Auto (Bld) 1.5 % Invalid Interpretation Code [facility] Eosinophils 0.2 K/mcL Invalid Interpretation Code 0 - 0.5 [facility] Eosinophils/100 leukocytes 3.1 % Invalid Interpretation Code [facility] Erythrocyte distribution width Auto Ratio (RBC) 14.4 % High 10 - 14.3 % [facility] Erythrocytes (RBC) 3.87 M/mcL Low 4.0 - 5.5 [facility] Hematocrit (HCT) 39.9 % Invalid Interpretation Code 37.9 - 49.2 % [facility] Hemoglobin mass conc (Bld) 13.6 g/dL Normal 12.9-16.9 [facility] Comment on above: Performed By: #### F ERR, LYTES, CALCM, BUNCR, IRON, TFERR, ALB, PHOS, PTHI #### Unless otherwise noted, all testing performed by [place] [address] CLIA: [id number] Police Captain Senior: Eric Moser M.D. Interpretation and review of laboratory results Abnormal Invalid Interpretation Code [facility] Lymphocytes 2.3 K/mcL Invalid Interpretation Code 0.9 - 3.6 [facility] Lymphocytes/100 leukocytes 36.0 % Invalid Interpretation Code [facility] MCH 35.1 pg High 27.7 - 34.6 pg [facility] MCHC mass conc (RBC) 34.1 g/dL Invalid Interpretation Code 32.9 - 35.5 g/dL [facility] MCV 103 fL High 82.8 - 99.3 [facility] Monocytes 0.6 K/mcL Invalid Interpretation Code 0.2 - 0.6 [facility] Monocytes/100 leukocytes 10.3 % Invalid Interpretation Code [facility] Neutrophils 3.1 K/mcL Invalid Interpretation Code 1.4 - 6.8 [facility] Platelet mean volume (PMV) 9.8 fL Invalid Interpretation Code 6.6 - 10.8 [facility] Platelets 159 K/mcL Invalid Interpretation Code 139 - 354 [facility] Segmented Neut 49.1 % Invalid Interpretation Code [facility] WBC (Leukocytes) 6.3 K/mcL Invalid Interpretation Code 3.6 - 10.4 [facility] CBC with Diffon 05-10-2018 Basophils #/vol (Bld) 0.1 K/mcL Normal 0-0.2 [facility] Comment on above: Performed By: #### F ERR, LYTES, CALCM, BUNCR, IRON, TFERR, ALB, PHOS, PTHI #### Unless otherwise noted, all testing performed by [place] [address] CLIA: [id number] Police Captain Senior: Eric Moser M.D. Basophils/100 WBC (Bld) 1.5 % Normal [facility] Comment on above: Performed By: #### F ERR, LYTES, CALCM, BUNCR, IRON, TFERR, ALB, PHOS, PTHI #### Unless otherwise noted, all testing performed by [place] [address] CLIA: [id number] Police Captain Senior: Eric Moser M.D. Eosinophils #/vol (Bld) 0.2 K/mcL Normal 0-0.5 [facility] Comment on above: Performed By: #### F ERR, LYTES, CALCM, BUNCR, IRON, TFERR, ALB, PHOS, PTHI #### Unless otherwise noted, all testing performed by [address] [place] [address] CLIA: [id number] Police Captain Senior: Eric Moser M.D. Eosinophils/100 WBC (Bld) 3.1 % Normal [facility] Comment on above: Performed By: #### F ERR, LYTES, CALCM, BUNCR, IRON, TFERR, ALB, PHOS, PTHI #### Unless otherwise noted, all testing performed by [place] [address] CLIA: [id number] Police Captain Senior: Eric Moser M.D. Erythrocyte distribution width Ratio (RBC) 14.4 % High 10-14.3 [facility] Comment on above: Performed By: #### F ERR, LYTES, CALCM, BUNCR, IRON, TFERR, ALB, PHOS, PTHI #### Unless otherwise noted, all testing performed by [place] [address] CLIA: [id number] Police Captain Senior: Eric Moser M.D. Hematocrit Volume Fraction (Bld) 39.9 % Normal 37.9-49.2 [facility] Comment on above: Performed By: #### F ERR, LYTES, CALCM, BUNCR, IRON, TFERR, ALB, PHOS, PTHI #### Unless otherwise noted, all testing performed by [place] [address] CLIA: [id number] Police Captain Senior: Eric Moser M.D. Lymphocytes #/vol (Bld) 2.3 K/mcL Normal 0.9-3.6 O [facility] Comment on above: Performed By: #### F ERR, LYTES, CALCM, BUNCR, IRON, TFERR, ALB, PHOS, PTHI #### Unless otherwise noted, all testing performed by [address] [place], [place] [address] CLIA: [id number] Police Captain Senior: Eric Moser M.D. Lymphocytes/100 WBC (Bld) 36.0 % Normal [facility] Comment on above: Performed By: #### F ERR, LYTES, CALCM, BUNCR, IRON, TFERR, ALB, PHOS, PTHI #### Unless otherwise noted, all testing performed by [place] [address] CLIA: [id number] Police Captain Senior: Eric Moser M.D. MCH Entitic mass (RBC) 35.1 pg High 27.7-34.6 [facility] Comment on above: Performed By: #### F ERR, LYTES, CALCM, BUNCR, IRON, TFERR, ALB, PHOS, PTHI #### Unless otherwise noted, all testing performed by [place] [address] CLIA: [id number] Police Captain Senior: Eric Moser M.D. MCHC mass conc (RBC) 34.1 g/dL Normal 32.9-35.5 [facility] Comment on above: Performed By: #### F ERR, LYTES, CALCM, BUNCR, IRON, TFERR, ALB, PHOS, PTHI #### Unless otherwise noted, all testing performed by [place] [address] CLIA: [id number] Police Captain Senior: Eric Moser M.D. MCV Entitic volume (RBC) 103.0 fL High 82.8-99.3 [facility] Comment on above: Performed By: #### F ERR, LYTES, CALCM, BUNCR, IRON, TFERR, ALB, PHOS, PTHI #### Unless otherwise noted, all testing performed by [place] [address] CLIA: [id number] Police Captain Senior: Eric Moser M.D. Monocytes #/vol (Bld) 0.6 K/mcL Normal 0.2-0.6 [facility] Comment on above: Performed By: #### F ERR, LYTES, CALCM, BUNCR, IRON, TFERR, ALB, PHOS, PTHI #### Unless otherwise noted, all testing performed by [place] [address] CLIA: [id number] Police Captain Senior: Eric Moser M.D. Monocytes/100 WBC (Bld) 10.3 % Normal [facility] Comment on above: Performed By: #### F ERR, LYTES, CALCM, BUNCR, IRON, TFERR, ALB, PHOS, PTHI #### Unless otherwise noted, all testing performed by [place] [address] CLIA: [id number] Police Captain Senior: Eric Moser M.D. Neutrophils #/vol (Bld) 3.1 K/mcL Normal 1.4-6.8 [facility] Comment on above: Performed By: #### F ERR, LYTES, CALCM, BUNCR, IRON, TFERR, ALB, PHOS, PTHI #### Unless otherwise noted, all testing performed by [place] [address] CLIA: [id number] Police Captain Senior: Eric Moser M.D. Platelet mean volume Entitic volume (Bld) 9.8 fL Normal 6.6-10.8 [facility] Comment on above: Performed By: #### F ERR, LYTES, CALCM, BUNCR, IRON, TFERR, ALB, PHOS, PTHI #### Unless otherwise noted, all testing performed by [place] [address] CLIA: [id number] Police Captain Senior: Eric Moser M.D. Platelets #/vol (Bld) 159 K/mcL Normal 139-354 [facility] Comment on above: Performed By: #### F ERR, LYTES, CALCM, BUNCR, IRON, TFERR, ALB, PHOS, PTHI #### Unless otherwise noted, all testing performed by [place] [address] CLIA: [id number] Police Captain Senior: Eric Moser M.D. RBC #/vol (Bld) 3.87 M/mcL Low 4.0-5.5 [facility] Comment on above: Performed By: #### F ERR, LYTES, CALCM, BUNCR, IRON, TFERR, ALB, PHOS, PTHI #### Unless otherwise noted, all testing performed by [place] [phone] CLIA: [id number] Police Captain Senior: Eric Moser M.D. Segmented Neut % 49.1 % Normal [facility] Comment on above: Performed By: #### F ERR, LYTES, CALCM, BUNCR, IRON, TFERR, ALB, PHOS, PTHI #### Unless otherwise noted, all testing performed by [place] [address] CLIA: [id number] Police Captain Senior: Eric Moser M.D. WBC #/vol (Bld) 6.3 K/mcL Normal 3.6-10.4 [facility] Comment on above: Performed By: #### F ERR, LYTES, CALCM, BUNCR, IRON, TFERR, ALB, PHOS, PTHI #### Unless otherwise noted, all testing performed by [place] [address] CLIA: [id number] Police Captain Senior: Eric Moser M.D. [facility] Metabolic [facility] 05-10-2018 Alanine aminotransferase (ALT) 30 U/L Normal 14-65 [facility] Comment on above: This test result alfredo [...] Unless otherwise noted, all testing performed by [place] [address] CLIA: [id number] Police Captain Senior: Eric Moser M.D. Albumin 3.4 g/dL Normal 3.2-5.2 [facility] Comment on above: Performed By: #### F ERR, LYTES, CALCM, BUNCR, IRON, TFERR, ALB, PHOS, PTHI #### Unless otherwise noted, all testing performed by [place] [address] CLIA: [id number] Police Captain Senior: Eric Moser M.D. Alkaline phosphatase (ALP) 48 U/L Normal 40-150 [facility] Comment on above: Performed By: #### F ERR, LYTES, CALCM, BUNCR, IRON, TFERR, ALB, PHOS, PTHI #### Unless otherwise noted, all testing performed by [place] [address] CLIA: [id number] Police Captain Senior: Eric Moser M.D. Aspartate aminotransferase (AST) 26 U/L Normal 0-45 [facility] Comment on above: This test result alfredo [...] Unless otherwise noted, all testing performed by [place] [phone] CLIA: [id number] Police Captain Senior: Eric Moser M.D. Bilirubin (total) 0.6 mg/dL Normal 0.3-1.2 [facility] Comment on above: Performed By: #### F ERR, LYTES, CALCM, BUNCR, IRON, TFERR, ALB, PHOS, PTHI #### Unless otherwise noted, all testing performed by [place] [phone] CLIA: [id number] Police Captain Senior: rEic Moser M.D. Calcium 9.2 mg/dL Normal 8.4-10.2 [facility] Comment on above: Performed By: #### F ERR, LYTES, CALCM, BUNCR, IRON, TFERR, ALB, PHOS, PTHI #### Unless otherwise noted, all testing performed by [place] [phone] CLIA: [id number] Police Captain Senior: Eric Moser M.D. Chloride 106 mmol/L Normal 98-108 [facility] Comment on above: Performed By: #### F ERR, LYTES, CALCM, BUNCR, IRON, TFERR, ALB, PHOS, PTHI #### Unless otherwise noted, all testing performed by [place] [address] CLIA: [id number] Police Captain Senior: Eric Moser M.D. CO2 24 mmol/L Normal 21-32 [facility] Comment on above: Performed By: #### F ERR, LYTES, CALCM, BUNCR, IRON, TFERR, ALB, PHOS, PTHI #### Unless otherwise noted, all testing performed by [place] [address] CLIA: [id number] Police Captain Senior: Eric Moser M.D. Creatinine 1.26 mg/dL Normal 0.80-1.30 [facility] Comment on above: Performed By: #### F ERR, LYTES, CALCM, BUNCR, IRON, TFERR, ALB, PHOS, PTHI #### Unless otherwise noted, all testing performed by [place] [address] CLIA: [id number] Police Captain Senior: Eric Moser M.D. eGFR (black) mL/min/{1.73_m2} Normal [facility] Comment on above: GFR Calc Result Comment: Afri can Gambian GFR Calc Performed By: #### F ERR, LYTES, CALCM, BUNCR, IRON, TFERR, ALB, PHOS, PTHI #### Unless otherwise noted, all testing performed by [place] [address] CLIA: [id number] Police Captain Senior: Eric Moser M.D. eGFR (non-black) 57 mL/min/{1.73_m2} Low >60 [facility] Comment on above: Non- GFR [...] Unless otherwise noted, all testing performed by [place] [address] CLIA: [id number] Police Captain Senior: Eric Moser M.D. Glucose mass conc 81 mg/dL Normal 70-99 [facility] Comment on above: This test result [...] Unless otherwise noted, all testing performed by [place] [address] CLIA: [id number] Police Captain Senior: Eric Moser M.D. Potassium molar conc 4.5 mmol/L Normal 3.5-5.1 [facility] Comment on above: Performed By: #### F ERR, LYTES, CALCM, BUNCR, IRON, TFERR, ALB, PHOS, PTHI #### Unless otherwise noted, all testing performed by [place] [address] CLIA: [id number] Police Captain Senior: Eric Moser M.D. Protein 7.0 g/dL Normal 6.0-8.0 [facility] Comment on above: Performed By: #### F ERR, LYTES, CALCM, BUNCR, IRON, TFERR, ALB, PHOS, PTHI #### Unless otherwise noted, all testing performed by [place] [address] CLIA: [id number] Police Captain Senior: Eric Moser M.D. Sodium 140 mmol/L Normal 135-145 [facility] Comment on above: Performed By: #### F ERR, LYTES, CALCM, BUNCR, IRON, TFERR, ALB, PHOS, PTHI #### Unless otherwise noted, all testing performed by [place] [address] CLIA: [id number] Police Captain Senior: Eric Moser M.D. Urea nitrogen 19 mg/dL Normal 8-25 [facility] Comment on above: Performed By: #### F ERR, LYTES, CALCM, BUNCR, IRON, TFERR, ALB, PHOS, PTHI #### Unless otherwise noted, all testing performed by [place] [address] CLIA: [id number] Police Captain Senior: Eric Moser M.D. Ferritinon 05-10-2018 Ferritin 58 ng/mL Invalid Interpretation Code 30 - 400 ng/mL [facility] Comment on above: Samples from patient s routinely receiving high dose biotin therapy (100-300 mg/day) may show falsely decreased results. Please correlate clinically. Ferritin mass conc 58 ng/mL Normal 30-400 [facility] Comment on above: Result Comment: Samp les from patients routinely receiving high dose biotin therapy (100-300 mg/day) may show falsely decreased results. Please correlate clinically. Performed By: #### F ERR, LYTES, CALCM, BUNCR, IRON, TFERR, ALB, PHOS, PTHI #### Unless otherwise noted, all testing performed by [place] [address] CLIA: [id number] Police Captain Senior: Eric Moser M.D. Reticulocyteon 05-10-2018 Reticulocyte 1.72 % High 0.5-1.7 [facility] Comment on above: Performed By: #### F ERR, LYTES, CALCM, BUNCR, IRON, TFERR, ALB, PHOS, PTHI #### Unless otherwise noted, all testing performed by [place] [address] CLIA: [id number] Police Captain Senior: Eric Moser M.D. Reticulocytes 1.72 % High 0.5 - 1.7 % [facility] Segmental doppler lower extr emity arterialon 05-07-2018 Segmental doppler lower extremity arterial Non-Invasive Vascular Patient: TONIO ZAMORA [facility] Rec#: [id number] (Age): 1950(68y) Study Date: 05/07/2018 Room#: Type: Outpatient Sex: M Reading: Tristen Menjivar MD, RPVI Referring: Tristen Menjivar MD Diesel Engineer: Michelle Osei RVT Procedure Info: [id number] Study Quality: Lower Arterial Doppler: adequate Diagnosis: [...] Tibial T B Dorsalis Pedis T B Rsamussen --------- T = Triphasic B = Biphasic [...] lower extremity arterial Interface, Rad In [facility] Xper Echopacs - 05/07/2018 5:28 PM EDT Non-Invasive Vascular Patient: TONIO ZAMORA [facility] Rec#: [id number] (Age): 1950(68y) Study Date: 05/07/2018 Room#: Type: Outpatient Sex: M Reading: Tristen Menjivar MD, RPVI Referring: Tristen Menjivar MD Diesel Engineer: Michelle Osei RVT Procedure Info: [id number] Study Quality: Lower Arterial Doppler: adequate Diagnosis: [...] Tristen Menjivar MD, RPVI Invalid Interpretation Code [facility] RAD Auto Diffon 04-25-2018 Basophils #/vol (Bld) 0.0 E3/mcL Normal 0.0-0.2 [facility] Comment on above: Order Comment: Order Added by Discern Expert. Performed By: #### 2 [id number] #### YENNY RemHemo [address] [place] [address] Basophils/100 WBC (Bld) 0.7 % Normal 0.0-2.0 [facility] Comment on above: Order Comment: Order Added by Discern Expert. Performed By: #### 2 [id number] #### YENNY RemHemo [address] [place] [address] Eos Absolute 0.3 E3/mcL Normal 0.0-0.7 [facility] Comment on above: Order Comment: Order Added by Discern Expert. Performed By: #### 2 155213 #### YENNY RemHemo [address] [place] [address] Eosinophils/100 WBC (Bld) 4.4 % Normal 0.0-11.0 [facility] Comment on above: Order Comment: Order Added by Discern Expert. Performed By: #### 2 [id number] #### YENNY RemHemo [address] [place] [address] Lymphocytes #/vol (Bld) 1.9 E3/mcL Normal 1.2-3.4 [facility] Comment on above: Order Comment: Order Added by Discern Expert. Performed By: #### 2 [id number] #### YENNY RemHemo [address] [place] [address] Lymphocytes/100 WBC (Bld) 30.8 % Normal 20.0-55.0 [facility] Comment on above: Order Comment: Order Added by Discern Expert. Performed By: #### 2 [id number] #### YENNY RemHemo [address] [place] [address] Weber Absolute 0.5 E3/mcL Normal 0.0-0.7 [facility] Comment on above: Order Comment: Order Added by Discern Expert. Performed By: #### 2 823342 #### YENNY RemHemo [address] [place] [address] Monocytes/100 WBC (Bld) 8.6 % Normal 0.0-10.0 [facility] Comment on above: Order Comment: Order Added by Discern Expert. Performed By: #### 2 700881 #### YENNY Haidero [address] [place] [address] Neutro Absolute 3.5 E3/mcL Normal 1.4-6.5 [facility] Comment on above: Order Comment: Order Added by Discern Expert. Performed By: #### 2 271473 #### YENNY Haidero [facility] [place] [address] Neutro Auto 55.5 % Normal 37.0-75.0 [facility] Comment on above: Order Comment: Order Added by Discern Expert. Performed By: #### 2 [id number] #### YENNY Haidero [address] [place], [place] [id number] CBC w/ Auto Diffon 8 Erythrocyte distribution width Ratio (RBC) 14.4 % Normal 11.5-14.5 [facility] Comment on above: Performed By: #### 2 199300 #### YENNY Haidero [facility] [place] [address] Hematocrit Volume Fraction (Bld) 38.9 % Low 42.0-52.0 [facility] Comment on above: Performed By: #### 2 033908 #### YENNY Haidero [address] [place] [address] Hemoglobin mass conc (Bld) 13.2 g/dL Low 13.5-18.0 [facility] Comment on above: Performed By: #### 2 648384 #### YENNY MoyaHemo [address] [place] [address] MCH Entitic mass (RBC) 34.4 pg High 27.0-31.0 [facility] Comment on above: Performed By: #### 2 181310 #### YENNY MoyaHemo [address] [place] [address] MCHC mass conc (RBC) 34.0 g/dL Normal 33.0-37.0 [facility] Comment on above: Performed By: #### 2 723180 #### YENNY MoyaHemo [facility] [place] [address] MCV Entitic volume (RBC) 101.2 fL High 78.0-100.0 [facility] Comment on above: Performed By: #### 2 953729 #### YENNY MoyaHemo [address] [place] [address] Platelet mean volume Entitic volume (Bld) 9.7 fL Normal 7.4-11.0 [facility] Comment on above: Performed By: #### 2 215879 #### YENNY NitaHemo [address] [place] [address] Platelets #/vol (Bld) 169 E3/mcL Normal 130-400 [facility] Comment on above: Performed By: #### 2 646469 #### YENNY NitaHemo [address] [place] [address] RBC #/vol (Bld) 3.84 E6/mcL Low 3.90-6.10 [facility] Comment on above: Performed By: #### 2 646724 #### YENNY NitaHemo [address] [place] [address] WBC #/vol (Bld) 6.2 E3/mcL Normal 3.6-11.0 [facility] Comment on above: Performed By: #### 2 097861 #### YENNY MoyaHemo [address] [place] [address] CMPon 04-25-2018 Albumin mass conc 3.3 g/dL Normal 3.2-5.0 [facility] Comment on above: Performed By: #### 2 837270 #### YENNY [facility] [address] [place] [address] Albumin/Globulin mass ratio 1.1 {ratio} Normal 1.1-1.9 [facility] Comment on above: Performed By: #### 2 754916 #### YENNY [facility] [address] [place] [address] Alk Phos 45 Int._Unit/L Normal 42-121 [facility] Comment on above: Performed By: #### 2 286384 #### YENNY [facility] [address] [place] [address] ALT enzyme act/vol 21 Int._Unit/L Normal 10-40 [facility] Comment on above: Performed By: #### 2 714292 #### YENNY [facility] [address] [place] [address] AST enzyme act/vol 24 Int._Unit/L Normal 10-42 [facility] Comment on above: Performed By: #### 2 866409 #### YENNY [facility] [address] [place] [address] Bili Total 0.8 mg/dL Normal 0.2-1.0 [facility] Comment on above: Performed By: #### 2 927034 #### YENNY [facility] [address] [place] [address] Creatinine mass conc 1.4 mg/dL High 0.6-1.3 [facility] Comment on above: Performed By: #### 2 838212 #### YENNY [facility] [address] [place] [address] Globulin mass conc (S) 2.9 g/dL Normal 2.0-4.0 [facility] Comment on above: Performed By: #### 2 852562 #### YENNY [facility] [address] [place] [address] Protein mass conc 6.2 g/dL Low 6.4-8.3 [facility] Comment on above: Performed By: #### 2 082229 #### YENNY [facility] [address] [place] [address] Urea nitrogen mass conc 25 mg/dL High 7-18 [facility] Comment on above: Performed By: #### 2 726744 #### YENNY [facility] [address] [place] [address] Urea nitrogen/Creatinine mass ratio 17.9 ratio Normal 5.4-30.0 [facility] Comment on above: Performed By: #### 2 969134 #### YENNY [facility] [address] [place] [address] Calcium mass conc 8.9 mg/dL Normal 8.4-10.2 [facility] Comment on above: Performed By: #### 2 260648 #### YENNY [facility] [address] [place] [address] Chloride molar conc 105 mmol/L Normal 98-107 [facility] Comment on above: Performed By: #### 2 302970 #### YENNY [facility] [address] [place] [address] CO2 molar conc 26.1 mmol/L Normal 24.0-30.0 [facility] Comment on above: Performed By: #### 2 265908 #### YENNY [facility] [address] [place] [address] Glucose mass conc 62 mg/dL Low 70-99 [facility] Comment on above: Performed By: #### 2 176039 #### YENNY [facility] [address] [place] [address] Potassium molar conc 4.5 mmol/L Normal 3.5-5.1 [facility] Comment on above: Performed By: #### 2 820108 #### YENNY [facility] [address] [place] [address] Sodium molar conc 139 mmol/L Normal 136-145 [facility] Comment on above: Performed By: #### 2 729577 #### YENNY [facility] [address] [place] [address] [id number] 04-25-2018 Hemoglobin A1c/Hemoglobin.total mass fraction (Bld) 6.2 % Normal 4.0-6.3 [facility] Comment on above: Performed By: #### 5 [id number] #### YENNY POC Subsection [address] [place] [address] Lipid Profileon 04-25-2018 Cholesterol in HDL mass conc 47 mg/dL Normal >=41 [facility] Comment on above: Performed By: #### 3 [id number] #### YENNY [facility] [address] [place] [address] Cholesterol in LDL mass conc 115 mg/dL Normal 0-130 [facility] Comment on above: Result Comment: <100 OPTIMAL 100-129 NEAR / ABOVE OPTIMAL 130-159 BORDERLINE HIGH 160-189 HIGH >190 VERY HIGH CALC LDL NOT VALID WHEN TRIGLYCERIDE IS >400 MG/DL Performed By: #### 3 [id number] #### YENNY [facility] [address] [place] [address] Cholesterol in VLDL mass conc 24 mg/dL Normal [facility] Comment on above: Performed By: #### 3 [id number] #### YENNY [facility] [address] [place] [address] Cholesterol mass conc 186 mg/dL Normal 50-200 [facility] Comment on above: Result Comment: TOTBere Duenas CHOLEESTEROL: <200 NORMAL 200 - 239 BORDERLINE HIGH >240 HIGH Performed By: #### 3 [id number] #### YENNY [facility] [address] [place] [address] Triglyceride mass conc 118 mg/dL Normal 35-150 [facility] Comment on above: Result Comment: <150 NORMAL 150-199 BORDERLINE HIGH 200-499 HIGH >500 VERY HIGH Performed By: #### 3 [id number] #### YENNY [facility] [address] [place] [address] Magnesiumon 04-25-2018 Magnesium mass conc 1.7 mg/dL Normal 1.7-2.8 [facility] Comment on above: Performed By: #### 2 081256 #### YENNY [facility] [address] [place] [address] Microalb/Creat Ratioon 04-25 Creatinine mass conc 110.0 mg/dL Normal 20.0-300.0 [facility] Comment on above: Performed By: #### 5 [id number] #### YENNY POC Subsection [address] [place] [address] Creatinine mass conc 1123 ug/mg High 0-30 [facility] Comment on above: Performed By: #### 5 [id number] #### YENNY POC Subsection [address] [place] [address] Ur Microalbumin 123.5 mg/dL High 0.0-1.9 [facility] Comment on above: Performed By: #### 5 [id number] #### YENNY POC Subsection [address] [place] [address] eGFRon 04-25-2018 GFR/1.73 sq M predicted among non-blacks MDRD vol rate/area (S/P/Bld) mL/min/{1.73_m2} Normal [facility] Comment on above: Order Comment: Order added by Discern Expert. Performed By: #### 1 [id number] #### YENNY [facility] [address] [place] [address] GFR/1.73 sq M predicted among non-blacks MDRD vol rate/area (S/P/Bld) 50 mL/min/1.73 m2 Normal [facility] Comment on above: Order Comment: Order added by Discern Expert. Performed By: #### 1 [id number] #### YENNY [facility] [address] [place] [address] C Woundon 04-10-2018 C Wound Final Report: [...] : <=4 S SXT : <=2/[address] [facility] Comment on above: Performed By: #### 2 [id number] #### YENNY Microbiology Subsection [facility] [place] [address] CT Thorax w/o Contraston CT Thorax w/o [...] Signed by: Seven Garrido MD Technologist: MAXIM [facility] Albuminon 12-20-2017 Albumin 3.4 g/dL Normal 3.2-5.2 [facility] Comment on above: Performed By: #### F ERR, LYTES, CALCM, BUNCR, IRON, TFERR, ALB, PHOS, PTHI #### Unless otherwise noted, all testing performed by [place] [address] CLIA: [id number] Police Captain Senior: Eric Moser M.D. BUN and Creatinineon 018 Creatinine 1.19 mg/dL Normal 0.80-1.30 [facility] Comment on above: Performed By: #### F ERR, LYTES, CALCM, BUNCR, IRON, TFERR, ALB, PHOS, PTHI #### Unless otherwise noted, all testing performed by [place] [address] CLIA: [id number] Police Captain Senior: Eric Moser M.D. eGFR (black) mL/min/{1.73_m2} Normal [facility] Comment on above: Result Comment: Afri can Gambian GFR Calc Performed By: #### F ERR, LYTES, CALCM, BUNCR, IRON, TFERR, ALB, PHOS, PTHI #### Unless otherwise noted, all testing performed by [place] [address] CLIA: [id number] Police Captain Senior: Eric Moser M.D. eGFR (non-black) mL/min/{1.73_m2} Normal [facility] Comment on above: Result Comment: Non- GFR [...] Unless otherwise noted, all testing performed by [place] [address] CLIA: [id number] Police Captain Senior: Eric Moser M.D. Urea nitrogen 15 mg/dL Normal 8-25 [facility] Comment on above: Performed By: #### F ERR, LYTES, CALCM, BUNCR, IRON, TFERR, ALB, PHOS, PTHI #### Unless otherwise noted, all testing performed by [place] [address] CLIA: [id number] Police Captain Senior: Eric Moser M.D. CBC and Differentialon 12-20 Basophils 0.7 % Invalid Interpretation Code [facility] Basophils 0.0 K/mcL Invalid Interpretation Code 0 - 0.2 [facility] Eosinophils 0.2 K/mcL Invalid Interpretation Code 0 - 0.5 [facility] Erythrocytes (RBC) 3.41 M/mcL Low 4.0 - 5.5 [facility] Hematocrit (HCT) 35.0 % Low 37.9 - 49.2 % [facility] Hemoglobin (HGB) 12.1 g/dL Low 12.9-16.9 [facility] Comment on above: Performed By: #### R ETIC, ELPRS, IMMFRLTC, CBCDIF, IFIXSI #### Unless otherwise noted, all testing performed by [place] [id number] CLIA: [id number] Police Captain Senior: Eric Moser M.D. Lymphocytes 2.0 K/mcL Invalid Interpretation Code 0.9 - 3.6 [facility] MCH 35.4 pg High 27.7 - 34.6 pg [facility] MCHC 34.5 g/dL Invalid Interpretation Code 32.9 - 35.5 g/dL [facility] MCV 102.4 fL High 82.8 - 99.3 [facility] Monocytes 0.5 K/mcL Invalid Interpretation Code 0.2 - 0.6 [facility] Neutrophils 4.2 K/mcL Invalid Interpretation Code 1.4 - 6.8 [facility] Platelet mean volume (PMV) 9.6 fL Invalid Interpretation Code 6.6 - 10.8 [facility] Platelets 201 K/mcL Invalid Interpretation Code 139 - 354 [facility] RDW-CA 12.5 % Invalid Interpretation Code 10 - 14.3 % [facility] Segmented Neut 60.2 % Invalid Interpretation Code [facility] T8 suppressor/100 cells 2.4 10*3/uL Invalid Interpretation Code [facility] T8 suppressor/100 cells 28.9 10*3/uL Invalid Interpretation Code [facility] T8 suppressor/100 cells 7.8 10*3/uL Invalid Interpretation Code [facility] WBC (Leukocytes) 6.9 K/mcL Invalid Interpretation Code 3.6 - 10.4 [facility] CBC with Diffon 12-20-2017 Basophils #/vol (Bld) 0.0 K/mcL Normal 0-0.2 [facility] Comment on above: Performed By: #### R ETIC, ELPRS, IMMFRLTC, CBCDIF, IFIXSI #### Unless otherwise noted, all testing performed by [place] [address] CLIA: [id number] Police Captain Senior: Eric Moser M.D. Basophils/100 WBC (Bld) 0.7 % Normal [facility] Comment on above: Performed By: #### R ETIC, ELPRS, IMMFRLTC, CBCDIF, IFIXSI #### Unless otherwise noted, all testing performed by [place] [address] CLIA: [id number] Police Captain Senior: Eric Moser M.D. Eosinophils #/vol (Bld) 0.2 K/mcL Normal 0-0.5 [facility] Comment on above: Performed By: #### R ETIC, ELPRS, IMMFRLTC, CBCDIF, IFIXSI #### Unless otherwise noted, all testing performed by [place] [address] CLIA: [id number] Police Captain Senior: Eric Moser M.D. Eosinophils/100 WBC (Bld) 2.4 % Normal [facility] Comment on above: Performed By: #### R ETIC, ELPRS, IMMFRLTC, CBCDIF, IFIXSI #### Unless otherwise noted, all testing performed by [place] [address] CLIA: [id number] Police Captain Senior: Eric Moser M.D. Erythrocyte distribution width Ratio (RBC) 12.5 % Normal 10-14.3 [facility] Comment on above: Performed By: #### R ETIC, ELPRS, IMMFRLTC, CBCDIF, IFIXSI #### Unless otherwise noted, all testing performed by [place] [address] CLIA: [id number] Police Captain Senior: Eric Moser M.D. Hematocrit Volume Fraction (Bld) 35.0 % Low 37.9-49.2 [facility] Comment on above: Performed By: #### R ETIC, ELPRS, IMMFRLTC, CBCDIF, IFIXSI #### Unless otherwise noted, all testing performed by [place] [address] CLIA: [id number] Police Captain Senior: Eric Moser M.D. Lymphocytes #/vol (Bld) 2.0 K/mcL Normal 0.9-3.6 [facility] Comment on above: Performed By: #### R ETIC, ELPRS, IMMFRLTC, CBCDIF, IFIXSI #### Unless otherwise noted, all testing performed by [place] [address] CLIA: [id number] Police Captain Senior: Eric Moser M.D. Lymphocytes/100 WBC (Bld) 28.9 % Normal [facility] Comment on above: Performed By: #### R ETIC, ELPRS, IMMFRLTC, CBCDIF, IFIXSI #### Unless otherwise noted, all testing performed by [place] [address] CLIA: [id number] Police Captain Senior: Eric Moser M.D. MCH Entitic mass (RBC) 35.4 pg High 27.7-34.6 [facility] Comment on above: Performed By: #### R ETIC, ELPRS, IMMFRLTC, CBCDIF, IFIXSI #### Unless otherwise noted, all testing performed by [place] [address] CLIA: [id number] Police Captain Senior: Eric Moser M.D. MCHC mass conc (RBC) 34.5 g/dL Normal 32.9-35.5 [facility] Comment on above: Performed By: #### R ETIC, ELPRS, IMMFRLTC, CBCDIF, IFIXSI #### Unless otherwise noted, all testing performed by [place] [address] CLIA: [id number] Police Captain Senior: Eric Moser M.D. MCV Entitic volume (RBC) 102.4 fL High 82.8-99.3 [facility] Comment on above: Performed By: #### R ETIC, ELPRS, IMMFRLTC, CBCDIF, IFIXSI #### Unless otherwise noted, all testing performed by [place] [address] CLIA: [id number] Police Captain Senior: Eric Moser M.D. Monocytes #/vol (Bld) 0.5 K/mcL Normal 0.2-0.6 [facility] Comment on above: Performed By: #### R ETIC, ELPRS, IMMFRLTC, CBCDIF, IFIXSI #### Unless otherwise noted, all testing performed by [place] [address] CLIA: [id number] Police Captain Senior: Eric Moser M.D. Monocytes/100 WBC (Bld) 7.8 % Normal [facility] Comment on above: Performed By: #### R ETIC, ELPRS, IMMFRLTC, CBCDIF, IFIXSI #### Unless otherwise noted, all testing performed by [place] [address] CLIA: [id number] Police Captain Senior: Eric Moser M.D. Neutrophils #/vol (Bld) 4.2 K/mcL Normal 1.4-6.8 [facility] Comment on above: Performed By: #### R ETIC, ELPRS, IMMFRLTC, CBCDIF, IFIXSI #### Unless otherwise noted, all testing performed by [place] [address] CLIA: [id number] Police Captain Senior: Eric Moser M.D. Platelet mean volume Entitic volume (Bld) 9.6 fL Normal 6.6-10.8 [facility] Comment on above: Performed By: #### R ETIC, ELPRS, IMMFRLTC, CBCDIF, IFIXSI #### Unless otherwise noted, all testing performed by [place] [address] CLIA: [id number] Police Captain Senior: Eric Moser M.D. Platelets #/vol (Bld) 201 K/mcL Normal 139-354 [facility] Comment on above: Performed By: #### R ETIC, ELPRS, IMMFRLTC, CBCDIF, IFIXSI #### Unless otherwise noted, all testing performed by [place] [address] CLIA: [id number] Police Captain Senior: Eric Moser M.D. RBC #/vol (Bld) 3.41 M/mcL Low 4.0-5.5 [facility] Comment on above: Performed By: #### R ETIC, ELPRS, IMMFRLTC, CBCDIF, IFIXSI #### Unless otherwise noted, all testing performed by [place] [address] CLIA: [id number] Police Captain Senior: Eric Moser M.D. Segmented Neut % 60.2 % Normal [facility] Comment on above: Performed By: #### R ETIC, ELPRS, IMMFRLTC, CBCDIF, IFIXSI #### Unless otherwise noted, all testing performed by [place] [address] CLIA: [id number] Police Captain Senior: Eric Moser M.D. WBC #/vol (Bld) 6.9 K/mcL Normal 3.6-10.4 [facility] Comment on above: Performed By: #### R ETIC, ELPRS, IMMFRLTC, CBCDIF, IFIXSI #### Unless otherwise noted, all testing performed by [place] [address] CLIA: [id number] Police Captain Senior: Eric Moser M.D. Calcium Levelon 12-20-2017 Calcium 8.7 mg/dL Normal 8.4-10.2 [facility] Comment on above: Performed By: #### F ERR, LYTES, CALCM, BUNCR, IRON, TFERR, ALB, PHOS, PTHI #### Unless otherwise noted, all testing performed by [place] [address] CLIA: [id number] Police Captain Senior: Eric Moser M.D. Electrolyte Panelon 12-20-19 18 Chloride 108 mmol/L Normal 98-108 [facility] Comment on above: Performed By: #### F ERR, LYTES, CALCM, BUNCR, IRON, TFERR, ALB, PHOS, PTHI #### Unless otherwise noted, all testing performed by [place] [address] CLIA: [id number] Police Captain Senior: Eric Moser M.D. CO2 26 mmol/L Normal 21-32 [facility] Comment on above: Performed By: #### F ERR, LYTES, CALCM, BUNCR, IRON, TFERR, ALB, PHOS, PTHI #### Unless otherwise noted, all testing performed by [place] [address] CLIA: [id number] Police Captain Senior: Eric Moser M.D. Potassium 3.9 mmol/L Normal 3.5-5.1 [facility] Comment on above: Performed By: #### F ERR, LYTES, CALCM, BUNCR, IRON, TFERR, ALB, PHOS, PTHI #### Unless otherwise noted, all testing performed by [place] [address] CLIA: [id number] Police Captain Senior: Eric Moser M.D. Sodium 140 mmol/L Normal 135-145 [facility] Comment on above: Performed By: #### F ERR, LYTES, CALCM, BUNCR, IRON, TFERR, ALB, PHOS, PTHI #### Unless otherwise noted, all testing performed by [place] [phone] CLIA: [id number] Police Captain Senior: Eric Moser M.D. Ferritinon 12-20-2017 Ferritin 95 ng/mL Invalid Interpretation Code 30 - 400 ng/mL [facility] Ferritin mass conc 95 ng/mL Normal 30-400 [facility] Comment on above: Result Comment: Samp les from patients routinely receiving high dose biotin therapy (100-300 mg/day) may show falsely decreased results. Please correlate clinically. Performed By: #### F ERR, LYTES, CALCM, BUNCR, IRON, TFERR, ALB, PHOS, PTHI #### Unless otherwise noted, all testing performed by [place] [address] CLIA: [id number] Police Captain Senior: Eric Moser M.D. Immunofixationon 12-20-2017 Comments (IFIXS) Normal [facility] Comment on above: Result Comment: No p araproteins detected. A negative serum immunofixation and/or serum protein electrophoresis is insufficient to rule out a monoclonal protein. Recommend serum free light chains if clinically indicated. Reviewed by Pathologist: Hayes House MD. Test Performed by [facility] [address] [place] [address] Performed By: #### F ERR, LYTES, CALCM, BUNCR, IRON, TFERR, ALB, PHOS, PTHI #### Unless otherwise noted, all testing performed by [place] [address] CLIA: [id number] Police Captain Senior: Eric Moser M.D. Immunofixation Normal Normal Normal [facility] Comment on above: Performed By: #### F ERR, LYTES, CALCM, BUNCR, IRON, TFERR, ALB, PHOS, PTHI #### Unless otherwise noted, all testing performed by [place] [address] CLIA: [id number] Police Captain Senior: Eric Moser M.D. Immunoglobulin Free Lt Chain son 12-20-2017 [place] Free Light Chains 2.57 mg/dL High 0.3300-1.94 [facility] Comment on above: Performed By: #### F ERR, LYTES, CALCM, BUNCR, IRON, TFERR, ALB, PHOS, PTHI #### Unless otherwise noted, all testing performed by [place] [address] CLIA: [id number] Police Captain Senior: Eric Moser M.D. [place]-Lambda Ratio 1.21 Normal 0.2600-1.65 [facility] Comment on above: Result Comment: Test Performed by: [address] [address] Performed By: #### F ERR, LYTES, CALCM, BUNCR, IRON, TFERR, ALB, PHOS, PTHI #### Unless otherwise noted, all testing performed by [place] [address] CLIA: [id number] Police Captain Senior: Eric Moser M.D. Lambda Free Light Chain 2.13 mg/dL Normal 0.5700-2.63 [facility] Comment on above: Performed By: #### F ERR, LYTES, CALCM, BUNCR, IRON, TFERR, ALB, PHOS, PTHI #### Unless otherwise noted, all testing performed by [place] [address] CLIA: [id number] Police Captain Senior: Eric Moser M.D. Ironon 12-20-2017 Interpretation and review of laboratory results Abnormal Invalid Interpretation Code [facility] Iron 64 ug/dL Low 65 - 175 [facility] Iron, Totalon 12-20-2017 Iron, Total 64 mcg/dL Low 65-175 [facility] Comment on above: Performed By: #### F ERR, LYTES, CALCM, BUNCR, IRON, TFERR, ALB, PHOS, PTHI #### Unless otherwise noted, all testing performed by [place] [address] CLIA: [id number] Police Captain Senior: Eric Moser M.D. Parathyroid Hormoneon 2017 Parathyroid Hormone 25.4 pg/mL Normal 18.4-80.1 [facility] Comment on above: Result Comment: Samp les from patients routinely receiving high dose biotin therapy may show falsely depressed results. Additional information may be required for diagnosis. Performed By: #### F ERR, LYTES, CALCM, BUNCR, IRON, TFERR, ALB, PHOS, PTHI #### Unless otherwise noted, all testing performed by [place] [address] CLIA: [id number] Police Captain Senior: Eric Moser M.D. Phosphoruson 12-20-2017 Phosphate 2.8 mg/dL Normal 2.3-3.7 [facility] Comment on above: Performed By: #### F ERR, LYTES, CALCM, BUNCR, IRON, TFERR, ALB, PHOS, PTHI #### Unless otherwise noted, all testing performed by [place] [address] CLIA: [id number] Police Captain Senior: Eric Moser M.D. Protein Electrophoresis, [facility] 12-20-2017 Albumin mass conc 3.5 g/dL Normal 3.1-5.5 [facility] Comment on above: Performed By: #### F ERR, LYTES, CALCM, BUNCR, IRON, TFERR, ALB, PHOS, PTHI #### Unless otherwise noted, all testing performed by [place] [address] CLIA: [id number] Police Captain Senior: Eric Moser M.D. Alpha-1 0.3 g/dL Normal 0.2-0.5 [facility] Comment on above: Performed By: #### F ERR, LYTES, CALCM, BUNCR, IRON, TFERR, ALB, PHOS, PTHI #### Unless otherwise noted, all testing performed by [place] [address] CLIA: [id number] Police Captain Senior: Eric Moser M.D. Alpha-2 0.8 g/dL Normal 0.4-1.1 [facility] Comment on above: Performed By: #### F ERR, LYTES, CALCM, BUNCR, IRON, TFERR, ALB, PHOS, PTHI #### Unless otherwise noted, all testing performed by [place] [address] CLIA: [id number] Police Captain Senior: Eric Moser M.D. Beta 1.2 g/dL Normal 0.6-1.3 [facility] Comment on above: Performed By: #### F ERR, LYTES, CALCM, BUNCR, IRON, TFERR, ALB, PHOS, PTHI #### Unless otherwise noted, all testing performed by [place] [address] CLIA: [id number] Police Captain Senior: Eric Moser M.D. Comment ([facility]) Reviewed by patholog ist: Hayes House M.D. [facility] Comment on above: Performed By: #### F ERR, LYTES, CALCM, BUNCR, IRON, TFERR, ALB, PHOS, PTHI #### Unless otherwise noted, all testing performed by [place] [address] CLIA: [id number] Police Captain Senior: Eric Moser M.D. Gamma 0.9 g/dL Normal 0.6-1.8 [facility] Comment on above: Performed By: #### F ERR, LYTES, CALCM, BUNCR, IRON, TFERR, ALB, PHOS, PTHI #### Unless otherwise noted, all testing performed by [place] [address] CLIA: [id number] Police Captain Senior: Eric Moser M.D. Interpretation ([facility]) Normal [facility] Comment on above: Result Comment: Norm al pattern. Serum protein electrophoresis is insufficient to rule out a monoclonal protein. Recommend serum immunofixation and serum free light chains if clinically indicated. Test Performed by [facility] [address] [place] [address] Performed By: #### F ERR, LYTES, CALCM, BUNCR, IRON, TFERR, ALB, PHOS, PTHI #### Unless otherwise noted, all testing performed by [place] [address] CLIA: [id number] Police Captain Senior: Eric Moser M.D. Protein mass conc 6.6 g/dL Normal 6.0-8.0 [facility] Comment on above: Performed By: #### F ERR, LYTES, CALCM, BUNCR, IRON, TFERR, ALB, PHOS, PTHI #### Unless otherwise noted, all testing performed by [place] [address] CLIA: [id number] Police Captain Senior: Eric Moser M.D. Protein Panel, Urineon 12-20 Creatinine, Urine Random 74.00 mg/dL Normal [facility] Comment on above: Result Comment: No e stablished reference range. Performed By: #### F ERR, LYTES, CALCM, BUNCR, IRON, TFERR, ALB, PHOS, PTHI #### Unless otherwise noted, all testing performed by [place] [address] CLIA: [id number] Police Captain Senior: Eric Moser M.D. Interpretation and review of laboratory results Abnormal Invalid Interpretation Code [facility] Protein Creatinine Ratio 2.26 High 0.0-0.2 [facility] Comment on above: Performed By: #### F ERR, LYTES, CALCM, BUNCR, IRON, TFERR, ALB, PHOS, PTHI #### Unless otherwise noted, all testing performed by [place] [address] CLIA: [id number] Police Captain Senior: Eric Moser M.D. Protein mass conc (U) 167.4 mg/dL Normal [facility] Comment on above: Performed By: #### F ERR, LYTES, CALCM, BUNCR, IRON, TFERR, ALB, PHOS, PTHI #### Unless otherwise noted, all testing performed by [place] [address] CLIA: [id number] Police Captain Senior: Eric Moser M.D. Protein, Urine Random 167.4 mg/dL Invalid Interpretation Code [facility] Protein/Creatinine Ratio, Urine 2.26 1 High 0.0 - 0.2 [facility] Reticulocyteon 12-20-2017 Interpretation and review of laboratory results Abnormal Invalid Interpretation Code [facility] Reticulocyte 1.85 % High 0.5-1.7 [facility] Comment on above: Performed By: #### F ERR, LYTES, CALCM, BUNCR, IRON, TFERR, ALB, PHOS, PTHI #### Unless otherwise noted, all testing performed by [place] [address] CLIA: [id number] Police Captain Senior: Eric Moser M.D. Reticulocytes 1.85 % High 0.5 - 1.7 % [facility] Transferrinon 12-20-2017 Transferrin 257.0 mg/dL Normal 212.0-360.0 [facility] Comment on above: Performed By: #### F ERR, LYTES, CALCM, BUNCR, IRON, TFERR, ALB, PHOS, PTHI #### Unless otherwise noted, all testing performed by [place] [address] CLIA: [id number] Police Captain Senior: Eric Moser M.D. SMITH Teston 12-19-2017 SMITH Test Negative Normal Negative [facility] Comment on above: Performed By: #### [id number] #### YENNY Misc Micro SubSection , Glucose POCon 12-18-2017 Glucose mass conc 99 mg/dL Normal 70-99 [facility] Comment on above: Performed By: #### [id number] #### YENNY POC Subsection [facility] [place] [address] Comprehensive Metabolic Pane shelby 08-17-2017 Albumin mass conc 3.6 g/dL Invalid Interpretation Code 3.2 - 5.2 g/dL [facility] ALP enzyme act/vol 77 U/L Invalid Interpretation Code 40 - 150 U/L [facility] ALT enzyme act/vol 28 U/L Invalid Interpretation Code 14 - 65 U/L [facility] Comment on above: This test result alfredo ht be falsely depressed or falsely elevated on samples drawn from patients taking Sulfasalazine and Sulfapyridine. Venipuncture should occur prior to taking either of these drugs. AST enzyme act/vol 22 U/L Invalid Interpretation Code 0 - 45 U/L [facility] Comment on above: This test result alfredo ht be falsely depressed or falsely elevated on samples drawn from patients taking Sulfasalazine and Sulfapyridine. Venipuncture should occur prior to taking either of these drugs. Bilirubin mass conc 0.2 mg/dL Low 0.3 - 1. 2 mg/dL [facility] Calcium mass conc 9.0 mg/dL Invalid Interpretation Code 8.4 - 10.2 mg/dL [facility] Chloride molar conc 113 mmol/L High 98 - 108 mmol/L [facility] CO2 molar conc 17 mmol/L Low 21 - 32 mmol/L [facility] Creatinine mass conc 1.36 mg/dL High 0.8 - 1 .3 mg/dL [facility] GFR/1.73 sq M predicted among blacks MDRD vol rate/area (S/P/Bld) mL/min/{1.73_m2} Invalid Interpretation Code ml/min/1.73s q.m [facility] Comment on above: GFR Calc GFR/1.73 sq M predicted among non-blacks MDRD vol rate/area (S/P/Bld) 52 mL/min/{1.73_m2} Low >60 [facility] Comment on above: Non- GFR Calc eGFR [...] Invalid Interpretation Code 70 - 99 mg/dL [facility] Comment on above: This test result alfredo ht be falsely depressed or falsely elevated on samples drawn from patients taking Sulfasalazine and Sulfapyridine. Venipuncture should occur prior to taking either of these drugs. Interpretation and review of laboratory results Abnormal Invalid Interpretation Code [facility] Potassium molar conc 4.4 mmol/L Invalid Interpretation Code 3.5 - 5.1 mmol/L [facility] Protein mass conc 7.7 g/dL Invalid Interpretation Code 6 - 8 g/dL [facility] Sodium molar conc 141 mmol/L Invalid Interpretation Code 135 - 145 mmol/L [facility] Urea nitrogen mass conc 28 mg/dL High 8 - 25 mg/dL [facility] Ferritinon 08-17-2017 Ferritin [Mass/volume] in Serum or Plasma 87 ng/mL Invalid Interpretation Code 30 - 400 ng/mL [facility] Reticulocyteon 08-17-2017 Reticulocytes 1.44 % Invalid Interpretation Code 0.5 - 1.7 % [facility] Vitamin B12 and Folateson Cobalamin (Vitamin B12) mass conc 825 pg/mL Invalid Interpretation Code 193 - 986 pg/mL [facility] Folate >20.0 High 3.1 - 17.5 ng/mL [facility] Vital Signs Date Time Vital Sign Value Performing Clinician Facility 04-10-2025 17:27-0400 Body temperature 98 [degF] Dr. Phyllis Mae MD Work Phone: [facility] 04-10-2025 17:27-0400 Diastolic blood pressure 66 mm[Hg] Dr. Phyllis Mae MD Work Phone: [facility] 04-10-2025 17:27-0400 Heart rate 62 /min Dr. Phyllis Mae MD Work Phone: [facility] 04-10-2025 17:27-0400 Respiratory rate 17 /min Dr. Phyllis Mae MD Work Phone: [facility] 04-10-2025 17:27-0400 SaO2% (BldA) [Mass fraction] 98 % Dr. Phyllis Mae MD Work Phone: [facility] 04-10-2025 17:27-0400 Systolic blood pressure 151 mm[Hg] Dr. Phyllis Mae MD Work Phone: [facility] 04-10-2025 15:19-0400 Body mass index (BMI) [Ratio] 21.7 kg/m2 Dr. Phyllis Mae MD Work Phone: [facility] 04-10-2025 15:19-0400 Body weight 62.[address] Phyllis Mae MD Work Phone: [facility] 04-10-2025 15:18-0400 Body height 170.[address] Phyllis Mae MD Work Phone: [facility] 01-02-2025 13:34-0500 Diastolic blood pressure 50 mm[Hg] BHUMIKA Duquemann DPM Work Phone: [facility] 01-02-2025 13:34-0500 Heart rate 75 /min CJ Netomann DPM Work Phone: [facility] 01-02-2025 13:34-0500 Systolic blood pressure 95 mm[Hg] BHUMIKA Duquemann DPM Work Phone: [facility] 01-02-2025 13:31-0500 Body height 167.6 cm CJ Netomann DPM Work Phone: [facility] 01-02-2025 13:31-0500 Body mass index (BMI) [Ratio] 22.92 kg/m2 BHUMIKA Duquemann DPM Work Phone: [facility] 01-02-2025 13:31-0500 Body temperature 97 [degF] BHUMIKA Hassmann DPM Work Phone: [facility] 01-02-2025 13:31-0500 Body weight 64.41 kg BHUMIKA Riley DPM Work Phone: [facility] 01-02-2025 13:31-0500 Respiratory rate 16 /min BHUMIKA Riley DPM Work Phone: [facility] 01-02-2025 13:31-0500 SaO2% (BldA) [Mass fraction] 97 % BHUMIKA Riley DPM Work Phone: [facility] 12-05-2024 12:45-0500 Body height 167.6 cm Phyllis Mae MD Work Phone: [phone] [place] [address] 12-05-2024 12:45-0500 Body mass index (BMI) [Ratio] 23.05 kg/m2 Phyllis Mae MD Work Phone: [phone] [address] 12-05-2024 12:45-0500 Body weight 64.77 kg Phyllis Mae MD Work Phone: [phone])[phone] [place] [address] 12-05-2024 12:45-0500 Diastolic blood pressure 58 mm[Hg] Phyllis Mae MD Work Phone: [facility] 12-05-2024 12:45-0500 Heart rate 67 /min Phyllis Mae MD Work Phone: [phone](875)142-693224 [place] [address] 12-05-2024 12:45-0500 SaO2% (BldA) [Mass fraction] 94 % Phyllis Mae MD Work Phone: [phone] [place] [address] 12-05-2024 12:45-0500 Systolic blood pressure 87 mm[Hg] Phyllis Mae MD Work Phone: 4([phone] [place] [address] 11-05-2024 13:04-0500 Body height 167.6 cm Phyllis Mae MD Work Phone: [phone] [place] [address] 11-05-2024 13:04-0500 Body mass index (BMI) [Ratio] 23.27 kg/m2 Phyllis Mae MD Work Phone: [facility] 11-05-2024 13:04-0500 Body weight 65.41 kg Phyllis Mae MD Work Phone: [facility] 11-05-2024 13:04-0500 Diastolic blood pressure 74 mm[Hg] Phyllis Mae MD Work Phone: [facility] 11-05-2024 13:04-0500 Heart rate 74 /min Phyllis Mae MD Work Phone: [facility] 11-05-2024 13:04-0500 SaO2% (BldA) [Mass fraction] 93 % Phyllis Mae MD Work Phone: [facility] 11-05-2024 13:04-0500 Systolic blood pressure 136 mm[Hg] Phyllis Mae MD Work Phone: [facility] 10-03-2024 14:48-0500 Diastolic blood pressure 79 mm[Hg] W. Craske III, DO Work Phone: [facility] 10-03-2024 14:48-0500 Heart rate 60 /min W. Pauske III, DO Work Phone: [facility] 10-03-2024 14:48-0500 Systolic blood pressure 155 mm[Hg] W. Craske III, DO Work Phone: [facility] 10-03-2024 14:42-0500 Body height 167.6 cm W. Craske III, DO Work Phone: [facility] 10-03-2024 14:42-0500 Body mass index (BMI) [Ratio] 22.92 kg/m2 W. Craske III, DO Work Phone: [facility] 10-03-2024 14:42-0500 Body weight 64.41 kg W. Pauske III, DO Work Phone: [facility] 10-03-2024 13:14-0500 Body temperature 98.71 [degF] Hassmann DPM Work Phone: [facility] 10-03-2024 13:14-0500 Diastolic blood pressure 72 mm[Hg] CJ Hassmann DPM Work Phone: [facility] 10-03-2024 13:14-0500 Heart rate 63 /min CJ Hassmann DPM Work Phone: [facility] 10-03-2024 13:14-0500 Systolic blood pressure 115 mm[Hg] CJ Hassmann DPM Work Phone: [facility] 09-09-2024 15:18-0500 Body height 167.6 cm [place] MD Work Phone: [facility] 09-09-2024 15:18-0500 Body mass index (BMI) [Ratio] 22.92 kg/m2 [place] MD Work Phone: [facility] 09-09-2024 15:18-0500 Body weight 64.41 kg [place] MD Work Phone: [facility] 09-09-2024 15:18-0500 Diastolic blood pressure 69 mm[Hg] [place] MD Work Phone: [facility] 09-09-2024 15:18-0500 Heart rate 59 /min [place] MD Work Phone: [facility] 09-09-2024 15:18-0500 SaO2% (BldA) [Mass fraction] 96 % [place] MD Work Phone: [facility] 09-09-2024 15:18-0500 Systolic blood pressure 129 mm[Hg] Aqu[place] Bay MD Work Phone: [facility] 09-09-2024 13:51-0500 Body mass index (BMI) [Ratio] 22.92 kg/m2 Fior Forbes CNP Work Phone: [facility] 09-09-2024 13:51-0500 Body weight 64.41 kg Fior Forbes CNP Work Phone: [facility] 09-09-2024 13:51-0500 Diastolic blood pressure 69 mm[Hg] Fior Forbes CNP Work Phone: [facility] 09-09-2024 13:51-0500 Heart rate 59 /min Fior Forbes SCHEDULING SPECIALIST Work Phone: [facility] 09-09-2024 13:51-0500 Systolic blood pressure 129 mm[Hg] Fior Forbes SCHEDULING SPECIALIST Work Phone: [facility] 07-25-2024 12:52-0400 Body height 167.6 cm Phyllis Mae MD Work Phone: [facility] 07-25-2024 12:52-0400 Body mass index (BMI) [Ratio] 23.73 kg/m2 Phyllis Mae MD Work Phone: [facility] 07-25-2024 12:52-0400 Body weight 66.68 kg Phyllis Mae MD Work Phone: [facility] 07-25-2024 12:52-0400 Diastolic blood pressure 69 mm[Hg] Phyllis Mae MD Work Phone: [facility] 07-25-2024 12:52-0400 Heart rate 82 /min Phyllis Mae MD Work Phone: [facility] 07-25-2024 12:52-0400 Systolic blood pressure 105 mm[Hg] Phyllis Mae MD Work Phone: [facility] 06-27-2024 14:08-0400 Body temperature 98.4 [degF] BHUMIKA Hassmann DPM Work Phone: [facility] 06-27-2024 14:08-0400 Diastolic blood pressure 59 mm[Hg] CJ Hassmann DPM Work Phone: [facility] 06-27-2024 14:08-0400 Heart rate 71 /min CJ Hassmann DPM Work Phone: [facility] 06-27-2024 14:08-0400 SaO2% (BldA) [Mass fraction] 94 % BHUMIKA Hassmann DPM Work Phone: [facility] 06-27-2024 14:08-0400 Systolic blood pressure 96 mm[Hg] CJ Hassmann DPM Work Phone: [facility] 05-14-2024 10:25-0400 Body temperature 98.49 [degF] CJ Hassmann DPM Work Phone: [facility] 05-14-2024 10:25-0400 Diastolic blood pressure 71 mm[Hg] CJ Hassmann DPM Work Phone: [facility] 05-14-2024 10:25-0400 Heart rate 93 /min BHUMIKA Hassmann DPM Work Phone: [facility] 05-14-2024 10:25-0400 SaO2% (BldA) [Mass fraction] 92 % BHUMIKA Hassmann DPM Work Phone: [facility] 05-14-2024 10:25-0400 Systolic blood pressure 108 mm[Hg] CJ Hassmann DPM Work Phone: [facility] 05-07-2024 14:32-0400 Body mass index (BMI) [Ratio] 23.86 kg/m2 David Waters SCHEDULING SPECIALIST Work Phone: [facility] 05-07-2024 14:32-0400 Body weight 67.04 kg David Waters SCHEDULING SPECIALIST Work Phone: [facility] 05-07-2024 14:32-0400 Diastolic blood pressure 71 mm[Hg] David Waters SCHEDULING SPECIALIST Work Phone: [facility] 05-07-2024 14:32-0400 Heart rate 78 /min David Waters SCHEDULING SPECIALIST Work Phone: [facility] 05-07-2024 14:32-0400 SaO2% (BldA) [Mass fraction] 94 % David Waters SCHEDULING SPECIALIST Work Phone: [facility] 05-07-2024 14:32-0400 Systolic blood pressure 121 mm[Hg] David Waters CNP Work Phone: [facility] 03-26-2024 13:31-0400 Body temperature 98.4 [degF] BHUMIKA Lin DPM Work Phone: [facility] 03-26-2024 13:31-0400 Diastolic blood pressure 73 mm[Hg] CJ Netomann DPM Work Phone: [facility] 03-26-2024 13:31-0400 Heart rate 68 /min CJ Netomann DPM Work Phone: [facility] 03-26-2024 13:31-0400 SaO2% (BldA) [Mass fraction] 94 % CJ Netomann DPM Work Phone: [facility] 03-26-2024 13:31-0400 Systolic blood pressure 110 mm[Hg] BHUMIKA Netomann DPM Work Phone: [facility] 02-27-2024 13:37-0400 Body height 167.6 cm Phyllis Mae MD Work Phone: [facility] 02-27-2024 13:37-0400 Body mass index (BMI) [Ratio] 23.57 kg/m2 Phyllis Mae MD Work Phone: [facility] 02-27-2024 13:37-0400 Body weight 66.22 kg Phyllis Mae MD Work Phone: [facility] 02-27-2024 13:37-0400 Diastolic blood pressure 51 mm[Hg] Phyllis Mae MD Work Phone: [facility] 02-27-2024 13:37-0400 Heart rate 70 /min Phyllis Mae MD Work Phone: [facility] 02-27-2024 13:37-0400 Systolic blood pressure 93 mm[Hg] Phyllis Mae MD Work Phone: [facility] 02-22-2024 12:44-0400 Body height 167.6 cm Scott Lambert PA-C Work Phone: [facility] 02-22-2024 12:44-0400 Body mass index (BMI) [Ratio] 22.76 kg/m2 Scott Bhattert PA-C Work Phone: [facility] 02-22-2024 12:44-0400 Body temperature 98.01 [degF] Scott Bhattert PA-C Work Phone: [facility] 02-22-2024 12:44-0400 Body weight 63.96 kg Scott Bhattert PA-C Work Phone: [facility] 02-22-2024 12:44-0400 Diastolic blood pressure 44 mm[Hg] Scott Bhattert PA-C Work Phone: [facility] 02-22-2024 12:44-0400 Heart rate 80 /min Scott Bhattert PA-C Work Phone: [facility] 02-22-2024 12:44-0400 Respiratory rate 19 /min Scott Bhattert PA-C Work Phone: [facility] 02-22-2024 12:44-0400 SaO2% (BldA) [Mass fraction] 96 % Scott Lambert PA-C Work Phone: [facility] 02-22-2024 12:44-0400 Systolic blood pressure 65 mm[Hg] Scott Bhattert PA-C Work Phone: [facility] 12-19-2023 14:02-0500 Body temperature 98.4 [degF] BHUMIKA Duquemann DPM Work Phone: [facility] 12-19-2023 14:02-0500 Diastolic blood pressure 61 mm[Hg] BHUMIKA Duquemann DPM Work Phone: [facility] 12-19-2023 14:02-0500 Heart rate 79 /min BHUMIKA Hassmann DPM Work Phone: [facility] 12-19-2023 14:02-0500 Systolic blood pressure 105 mm[Hg] BHUMIKA Lin DPM Work Phone: [facility] 12-14-2023 12:52-0500 Body height 167.6 cm Phyllis Mae MD Work Phone: [facility] 12-14-2023 12:52-0500 Body mass index (BMI) [Ratio] 22.76 kg/m2 Phyllis Mae MD Work Phone: [facility] 12-14-2023 12:52-0500 Body weight 63.96 kg Phyllis Mae MD Work Phone: [facility] 12-14-2023 12:52-0500 Diastolic blood pressure 67 mm[Hg] Phyllis Mae MD Work Phone: [facility] 12-14-2023 12:52-0500 Heart rate 62 /min Phyllis Mae MD Work Phone: [facility] 12-14-2023 12:52-0500 Systolic blood pressure 112 mm[Hg] Phyllis Mae MD Work Phone: [facility] 10-18-2023 12:56-0500 Diastolic blood pressure 83 mm[Hg] Fior Forbes CNP Work Phone: [facility] 10-18-2023 12:56-0500 Heart rate 88 /min Fior Forbes CNP Work Phone: [facility] 10-18-2023 12:56-0500 Systolic blood pressure 135 mm[Hg] Fior Forbes CNP Work Phone: [facility] 10-18-2023 12:49-0500 Body mass index (BMI) [Ratio] 23.98 kg/m2 Fior Forbes CNP Work Phone: [facility] 10-18-2023 12:49-0500 Body weight 67.41 kg Fior Forbes CNP Work Phone: [facility] 10-11-2023 12:52-0500 Body height 167.6 cm Deshaun Rodrigues MD Work Phone: [facility] 10-11-2023 12:52-0500 Body mass index (BMI) [Ratio] 23.89 kg/m2 Dehsaun Rodrigues MD Work Phone: [facility] 10-11-2023 12:52-0500 Body weight 67.13 kg Deshaun Rodrigues MD Work Phone: [facility] 10-11-2023 12:52-0500 Diastolic blood pressure 70 mm[Hg] Deshaun Rodrigues MD Work Phone: [facility] 10-11-2023 12:52-0500 Heart rate 75 /min Deshaun Rodrigues MD Work Phone: [facility] 10-11-2023 12:52-0500 Respiratory rate 16 /min Deshaun Rodrigues MD Work Phone: [facility] 10-11-2023 12:52-0500 SaO2% (BldA) [Mass fraction] 97 % Deshaun Rodrigues MD Work Phone: [facility] 10-11-2023 12:52-0500 Systolic blood pressure 105 mm[Hg] Deshaun Rodrigues MD Work Phone: [facility] 08-22-2023 13:22-0400 Body height 167.6 cm Phyllis Mae MD Work Phone: [facility] 08-22-2023 13:22-0400 Body mass index (BMI) [Ratio] 24.21 kg/m2 Phyllis Mae MD Work Phone: [facility] 08-22-2023 13:22-0400 Body weight 68.04 kg Phyllis Mae MD Work Phone: [facility] 08-22-2023 13:22-0400 Diastolic blood pressure 62 mm[Hg] Phyllis Mae MD Work Phone: [facility] 08-22-2023 13:22-0400 Heart rate 67 /min Phyllis Mae MD Work Phone: [facility] 08-22-2023 13:22-0400 SaO2% (BldA) [Mass fraction] 92 % Phyllis Mae MD Work Phone: [facility] 08-22-2023 13:22-0400 Systolic blood pressure 114 mm[Hg] Phyllis Mae MD Work Phone: [facility] 07-12-2023 12:49-0400 Body height 167.6 cm Arianna Ream SCHEDULING SPECIALIST Work Phone: [facility] 07-12-2023 12:49-0400 Body mass index (BMI) [Ratio] 24.37 kg/m2 Arianna Ream SCHEDULING SPECIALIST Work Phone: [facility] 07-12-2023 12:49-0400 Body weight 68.49 kg Arianna Ream SCHEDULING SPECIALIST Work Phone: [facility] 07-12-2023 12:49-0400 Diastolic blood pressure 65 mm[Hg] Arianna Ream SCHEDULING SPECIALIST Work Phone: [facility] 07-12-2023 12:49-0400 Heart rate 70 /min Raianna Ream SCHEDULING SPECIALIST Work Phone: [facility] 07-12-2023 12:49-0400 SaO2% (BldA) [Mass fraction] 95 % Arianna Ream SCHEDULING SPECIALIST Work Phone: [facility] 07-12-2023 12:49-0400 Systolic blood pressure 119 mm[Hg] Arianna Ream SCHEDULING SPECIALIST Work Phone: [facility] 04-05-2023 14:10-0400 Body height 167.6 cm Deshaun Rodrigues MD Work Phone: [facility] 04-05-2023 14:10-0400 Body mass index (BMI) [Ratio] 25.82 kg/m2 Deshaun Rodrigues MD Work Phone: [facility] 04-05-2023 14:10-0400 Body weight 72.58 kg Deshaun Rodrigues MD Work Phone: [facility] 04-05-2023 14:10-0400 Diastolic blood pressure 58 mm[Hg] Deshaun Rodrigues MD Work Phone: [facility] 04-05-2023 14:10-0400 Heart rate 62 /min Deshaun Rodrigues MD Work Phone: [facility] 04-05-2023 14:10-0400 Respiratory rate 16 /min Deshaun Rodrigues MD Work Phone: [facility] 04-05-2023 14:10-0400 SaO2% (BldA) [Mass fraction] 96 % Deshaun Rodrigues MD Work Phone: [facility] 04-05-2023 14:10-0400 Systolic blood pressure 101 mm[Hg] Deshaun Rodrigues MD Work Phone: [facility] 03-07-2023 13:42-0400 Body height 167.6 cm Phyllis Mae MD Work Phone: [facility] 03-07-2023 13:42-0400 Body mass index (BMI) [Ratio] 23.89 kg/m2 Phyllis Mae MD Work Phone: [facility] 03-07-2023 13:42-0400 Body weight 67.13 kg Phyllis Mae MD Work Phone: [facility] 03-07-2023 13:42-0400 Diastolic blood pressure 78 mm[Hg] Phyllis Mae MD Work Phone: [facility] 03-07-2023 13:42-0400 Heart rate 60 /min Phyllis Mae MD Work Phone: [facility] 03-07-2023 13:42-0400 Systolic blood pressure 132 mm[Hg] Phyllis Mae MD Work Phone: [facility] 11-09-2022 17:01-0500 Body height 170.1 cm Phyllis Mae Other Phone: [facility] 11-09-2022 17:01-0500 Body temperature 98.06 [degF] Phyllis Mae Other Phone: [facility] 11-09-2022 17:01-0500 Diastolic blood pressure 61 mm[Hg] Phyllis Mae Other Phone: [facility] 11-09-2022 17:01-0500 Heart rate 68 /min Phyllis Mae Other Phone: [facility] 11-09-2022 17:01-0500 Respiratory rate 23 /min Phyllis Mae Other Phone: [facility] 11-09-2022 17:01-0500 SaO2% (BldA) [Mass fraction] 96 % Phyllis Mae Other Phone: [facility] 11-09-2022 17:01-0500 Systolic blood pressure 97 mm[Hg] Phyllis Mae Other Phone: [facility] 09-20-2022 12:54-0500 Body height 167.64 cm Phyllis Mae Work Phone: [facility] Work Phone: 09-20-2022 12:54-0500 Body mass index (BMI) [Ratio] 24.37 kg/m2 Phyllis Mae Work Phone: [facility] Work Phone: 09-20-2022 12:54-0500 Body surface area Derived from formula 1.77 m2 Phyllis Mae Work Phone: [facility] Work Phone: 09-20-2022 12:54-0500 Body weight 68.49 kg Phyllis Taverasabi Work Phone: [facility] Work Phone: 09-20-2022 12:54-0500 Diastolic blood pressure 76 mm[Hg] Phyllis Taverasabi Work Phone: [facility] Work Phone: 09-20-2022 12:54-0500 Heart rate 84 /min Phyllis Mae Work Phone: [facility] Work Phone: 09-20-2022 12:54-0500 Systolic blood pressure 110 mm[Hg] Phyllis Mae Work Phone: [facility] Work Phone: 06-16-2022 12:41-0400 Diastolic blood pressure 72 mm[Hg] Deshaun Rodrigues MD Work Phone: [facility] 06-16-2022 12:41-0400 Heart rate 78 /min Deshaun Rodrigues MD Work Phone: [facility] 06-16-2022 12:41-0400 Respiratory rate 16 /min Deshaun Rodrigues MD Work Phone: [facility] 06-16-2022 12:41-0400 SaO2% (BldA) [Mass fraction] 95 % Deshaun Rodrigues MD Work Phone: [facility] 06-16-2022 12:41-0400 Systolic blood pressure 129 mm[Hg] Deshaun Rodrigues MD Work Phone: [facility] 06-10-2022 11:10-0400 Body height 170.2 cm Erica Gardner PA-C Work Phone: [facility] 06-10-2022 11:10-0400 Body mass index (BMI) [Ratio] 23.96 kg/m2 Erica Gardner PA-C Work Phone: [facility] 06-10-2022 11:10-0400 Body weight 69.4 kg Erica Gardner PA-C Work Phone: [facility] 06-10-2022 11:10-0400 Diastolic blood pressure 66 mm[Hg] Erica Gardner PA-C Work Phone: [facility] 06-10-2022 11:10-0400 Heart rate 79 /min Erica Gardner PA-C Work Phone: [facility] 06-10-2022 11:10-0400 Systolic blood pressure 116 mm[Hg] Erica Gardner PA-C Work Phone: [facility] 06-02-2022 15:31-0400 Body height 170.2 cm Aquiles Bay MD Work Phone: [facility] 06-02-2022 15:31-0400 Body mass index (BMI) [Ratio] 24.28 kg/m2 Aquiles Bay MD Work Phone: [facility] 06-02-2022 15:31-0400 Body weight 70.31 kg Aqu[place] Bay MD Work Phone: [facility] 06-02-2022 15:31-0400 Diastolic blood pressure 72 mm[Hg] Aquiles Bay MD Work Phone: [facility] 06-02-2022 15:31-0400 Heart rate 85 /min Aqu[place] MD Work Phone: [facility] 06-02-2022 15:31-0400 SaO2% (BldA) [Mass fraction] 93 % [place] MD Work Phone: [facility] 06-02-2022 15:31-0400 Systolic blood pressure 122 mm[Hg] [place] Bay MD Work Phone: [facility] 03-29-2022 11:38-0400 Body height 167.64 cm Phyllis Taverasclemencia Work Phone: [facility] Work Phone: 03-29-2022 11:38-0400 Body mass index (BMI) [Ratio] 24.37 kg/m2 Phyllis Taverasclemencia Work Phone: [facility] Work Phone: 03-29-2022 11:38-0400 Body surface area Derived from formula 1.77 m2 Phyllis Taverasclemencia Work Phone: [facility] Work Phone: 03-29-2022 11:38-0400 Body weight 68.49 kg Phyllis Mae Work Phone: [facility] Work Phone: 03-29-2022 11:38-0400 Diastolic blood pressure 74 mm[Hg] Phyllis Taverasabi Work Phone: [facility] Work Phone: 03-29-2022 11:38-0400 Heart rate 79 /min Phyllisallie Mae Work Phone: [facility] Work Phone: 03-29-2022 11:38-0400 SaO2% (BldA) [Mass fraction] 97 % Phyllis Mae Work Phone: [facility] Work Phone: 03-29-2022 11:38-0400 Systolic blood pressure 108 mm[Hg] Phyllis Mae Work Phone: [facility] Work Phone: 03-01-2022 12:58-0400 Body height 167.64 cm Phyllis Mae Work Phone: [facility] Work Phone: 03-01-2022 12:58-0400 Body mass index (BMI) [Ratio] 24.29 kg/m2 Phyllis Taverasabi Work Phone: [facility] Work Phone: 03-01-2022 12:58-0400 Body surface area Derived from formula 1.77 m2 Phyllis Taverasabi Work Phone: [facility] Work Phone: 03-01-2022 12:58-0400 Body weight 68.26 kg Phyllis Taverasabi Work Phone: [facility] Work Phone: 03-01-2022 12:58-0400 Diastolic blood pressure 80 mm[Hg] Phyllis Asifrrabi Work Phone: [facility] Work Phone: 03-01-2022 12:58-0400 Heart rate 91 /min Phyllis Asifrrabi Work Phone: [facility] Work Phone: 03-01-2022 12:58-0400 Systolic blood pressure 130 mm[Hg] Phyllis Asifrrabi Work Phone: [facility] Work Phone: 01-10-2022 11:22-0400 Body height 170.2 cm Santana Kleinmann PA-C Work Phone: [facility] 01-10-2022 11:22-0400 Body mass index (BMI) [Ratio] 23.18 kg/m2 Santana Kleinmann PA-C Work Phone: [facility] 01-10-2022 11:22-0400 Body weight 67.13 kg Santana Kleinmann PA-C Work Phone: [facility] 01-10-2022 11:22-0400 Diastolic blood pressure 78 mm[Hg] Santana Kleinmann PA-C Work Phone: [facility] 01-10-2022 11:22-0400 Heart rate 81 /min Santana Kleinmann PA-C Work Phone: [facility] 01-10-2022 11:22-0400 Systolic blood pressure 123 mm[Hg] Santana Kleinmann PA-C Work Phone: [facility] 01-04-2022 13:46-0500 Body height 167.64 cm Phyllis Taverasabi Work Phone: [facility] Work Phone: 01-04-2022 13:46-0500 Body mass index (BMI) [Ratio] 23.73 kg/m2 Phyllis Zarrabi Work Phone: [facility] Work Phone: 01-04-2022 13:46-0500 Body surface area Derived from formula 1.75 m2 Phylils Taverasabi Work Phone: [facility] Work Phone: 01-04-2022 13:46-0500 Body weight 66.68 kg Phyllis Taverasabi Work Phone: [facility] Work Phone: 01-04-2022 13:46-0500 Diastolic blood pressure 92 mm[Hg] Phyllis Zarrabi Work Phone: [facility] Work Phone: 01-04-2022 13:46-0500 Heart rate 85 /min Phyllis Taverasabi Work Phone: [facility] Work Phone: 01-04-2022 13:46-0500 Systolic blood pressure 108 mm[Hg] Phyllis Taverasabi Work Phone: [facility] Work Phone: 10-04-2021 11:35-0500 Body height 167.64 cm Phyllis Mae Work Phone: [facility] Work Phone: 10-04-2021 11:35-0500 Body mass index (BMI) [Ratio] 23.43 kg/m2 Phyllis Taverasabi Work Phone: [facility] Work Phone: 10-04-2021 11:35-0500 Body surface area Derived from formula 1.75 m2 Phyllis Taverasabi Work Phone: [facility] Work Phone: 10-04-2021 11:35-0500 Body weight 65.85 kg Phyllis Taverasabi Work Phone: [facility] Work Phone: 10-04-2021 11:35-0500 Diastolic blood pressure 60 mm[Hg] Phyllis Taverasabi Work Phone: [facility] Work Phone: 10-04-2021 11:35-0500 Systolic blood pressure 100 mm[Hg] Phyllis Asifrrabi Work Phone: [facility] Work Phone: 09-14-2021 13:55-0500 Body height 167.64 cm Phyllis Taverasabi Work Phone: [facility] Work Phone: 09-14-2021 13:55-0500 Body mass index (BMI) [Ratio] 23.24 kg/m2 Phyllis Asifrrabi Work Phone: [facility] Work Phone: 09-14-2021 13:55-0500 Body surface area Derived from formula 1.74 m2 Phyllis Taverasabi Work Phone: [facility] Work Phone: 09-14-2021 13:55-0500 Body weight 65.31 kg Phyllis Taverasabi Work Phone: [facility] Work Phone: 09-14-2021 13:55-0500 Diastolic blood pressure 80 mm[Hg] Phyllis Asifrrabi Work Phone: [facility] Work Phone: 09-14-2021 13:55-0500 Heart rate 80 /min Phyllis Asifrrabi Work Phone: [facility] Work Phone: 09-14-2021 13:55-0500 Systolic blood pressure 128 mm[Hg] Phyllis Zarrabi Work Phone: [facility] Work Phone: 08-24-2021 11:15-0400 Body height 167.64 cm Phyllis Mae Work Phone: [facility] Internal Medicine Work Phone: 08-24-2021 11:15-0400 Body mass index (BMI) [Ratio] 22.6 kg/m2 Phyllis Mae Work Phone: [facility] Internal Medicine Work Phone: 08-24-2021 11:15-0400 Body surface area Derived from formula 1.72 m2 Phyllis Mae Work Phone: [facility] Medicine Work Phone: 08-24-2021 11:15-0400 Body weight 63.5 kg Phyllis Mae Work Phone: [facility] Medicine Work Phone: 08-24-2021 11:15-0400 Diastolic blood pressure 70 mm[Hg] Phyllis Mae Work Phone: [facility] Medicine Work Phone: 08-24-2021 11:15-0400 Heart rate 94 /min Phyllis Mae Work Phone: [facility] Medicine Work Phone: 08-24-2021 11:15-0400 SaO2% (BldA) [Mass fraction] 97 % Phyllis Mae Work Phone: [facility] Medicine Work Phone: 08-24-2021 11:15-0400 Systolic blood pressure 102 mm[Hg] Phyllis Taverasabi Work Phone: [facility] Internal Medicine Work Phone: 08-03-2021 11:25-0400 Body height 170.2 cm David Waters CNP Work Phone: [facility] 08-03-2021 11:25-0400 Body mass index (BMI) [Ratio] 21.77 kg/m2 David Waters CNP Work Phone: [facility] 08-03-2021 11:25-0400 Body weight 63.05 kg David Waters SCHEDULING SPECIALIST Work Phone: [facility] 08-03-2021 11:25-0400 Diastolic blood pressure 81 mm[Hg] David Waters SCHEDULING SPECIALIST Work Phone: [facility] 08-03-2021 11:25-0400 Heart rate 97 /min David Waters SCHEDULING SPECIALIST Work Phone: [facility] 08-03-2021 11:25-0400 Systolic blood pressure 155 mm[Hg] David Waters SCHEDULING SPECIALIST Work Phone: [facility] 07-12-2021 11:30-0400 Body height 167.64 cm Phyllis Taverasabi Work Phone: [facility] Medicine Work Phone: 07-12-2021 11:30-0400 Body mass index (BMI) [Ratio] 21.63 kg/m2 Phyllis Mae Work Phone: [facility] Medicine Work Phone: 07-12-2021 11:30-0400 Body surface area Derived from formula 1.69 m2 Phyllis Taverasabi Work Phone: [facility] Medicine Work Phone: 07-12-2021 11:30-0400 Body weight 60.78 kg Phyllis Taverasabi Work Phone: [facility] Medicine Work Phone: 07-12-2021 11:30-0400 Diastolic blood pressure 60 mm[Hg] Phyllis Taverasabi Work Phone: [facility] Medicine Work Phone: 07-12-2021 11:30-0400 Heart rate 76 /min Phyllis Asfirrabi Work Phone: [facility] Medicine Work Phone: 07-12-2021 11:30-0400 Systolic blood pressure 100 mm[Hg] Phyllis Mae Work Phone: [facility] Medicine Work Phone: 06-24-2021 11:16-0400 Body height [...] pressure 83 mm[Hg] Phyllis Mae Work Phone: [facility] Work Phone: 06-01-2021 14:11-0400 Body height 170.18 cm Phyllis Mae Work Phone: [facility] Internal Medicine Work Phone: 06-01-2021 14:11-0400 Body mass index (BMI) [Ratio] 19.89 kg/m2 Phyllisallie Mae Work Phone: [facility] Medicine Work Phone: 06-01-2021 14:11-0400 Body surface area Derived from formula 1.67 m2 Phyllisallie Mae Work Phone: [facility] Medicine Work Phone: 06-01-2021 14:11-0400 Body weight 57.61 kg Phyllisallie Mae Work Phone: [facility] Medicine Work Phone: 06-01-2021 14:11-0400 Diastolic blood pressure 70 mm[Hg] Phyllis Mae Work Phone: [facility] Medicine Work Phone: 06-01-2021 14:11-0400 Heart rate 88 /min Phyllis Mae Work Phone: [facility] Medicine Work Phone: 06-01-2021 14:11-0400 Systolic blood pressure 108 mm[Hg] Phyllis Mae Work Phone: [facility] Medicine Work Phone: 05-11-2021 07:47-0400 Body temperature 97.3 [degF] Lev Stockton MD Work Phone: [facility] 05-11-2021 07:47-0400 Diastolic blood pressure 66 mm[Hg] Lev Stockton MD Work Phone: [facility] 05-11-2021 07:47-0400 Heart rate 66 /min Lev Stockton MD Work Phone: [facility] 05-11-2021 07:47-0400 Respiratory rate 16 /min Lev Stockton MD Work Phone: [facility] 05-11-2021 07:47-0400 SaO2% (BldA) [Mass fraction] 95 % Lev Stockton MD Work Phone: [facility] 05-11-2021 07:47-0400 Systolic blood pressure 125 mm[Hg] Lev Stockton MD Work Phone: [facility] 05-11-2021 05:00-0400 Body mass index (BMI) [Ratio] 22.76 kg/m2 Lev Stockton MD Work Phone: [facility] 05-11-2021 05:00-0400 Body weight 66.9 kg Lev Stockton MD Work Phone: [facility] 04-27-2021 16:03-0400 Respiratory rate 0 /min Lev Stockton MD Work Phone: [facility] 04-27-2021 15:12-0400 Body height 171.5 cm Lev Stockton MD Work Phone: [facility] 03-24-2021 15:28-0400 Body height 154.1 cm Dylon Galindo MD Work Phone: [facility] 03-24-2021 15:28-0400 Body mass index (BMI) [Ratio] 25.42 kg/m2 Dylon Galindo MD Work Phone: [facility] 03-24-2021 15:28-0400 Body weight 60.33 kg Dylon Galindo MD Work Phone: [facility] 11-23-2020 13:51-0500 BP Diastolic 63 mm[Hg] Aquiles Camilocody [facility] 11-23-2020 13:51-0500 BP Systolic 122 mm[Hg] [place] [facility] 11-23-2020 13:51-0500 Pulse (Heart Rate) 97 /min [place] [facility] 11-23-2020 13:01-0500 BMI (Body Mass Index) 22.08 kg/m2 [place] [facility] 11-23-2020 13:010500 Body weight 63.96 kg Aquiles Pagenathalie [facility] 11-23-2020 13:010500 Height 170.2 cm Aquiles Lennathalie [facility] 08-17-2020 12:36-0400 BMI (Body Mass Index) 22.87 kg/m2 Phyllis Mae [facility] Internal Medicine Work Phone: 08-17-2020 12:36-0400 Body weight 66.23 kg Phyllis Mae [facility] Medicine Work Phone: 08-17-2020 12:36-0400 BP Diastolic 92 mm[Hg] Phyllis Mae [facility] Internal Medicine Work Phone: 08-17-2020 12:36-0400 BP Systolic 158 mm[Hg] Phyllis Mae [facility] Internal Medicine Work Phone: 08-17-2020 12:36-0400 BSA (Body Surface Area) 1.77 m2 Phyllismax Mae [facility] Internal Medicine Work Phone: 08-17-2020 12:36-0400 Height 170.18 cm Phyllismax Mae [facility] Internal Medicine Work Phone: 08-17-2020 12:36-0400 Pulse (Heart Rate) 64 /min Phyllis Mae [facility] Medicine Work Phone: 08-03-2020 12:54-0400 BMI (Body Mass Index) 22.87 kg/m2 Erica Gardner [facility] 08-03-2020 12:54-0400 Body weight 66.22 kg Erica Gardner [facility] 08-03-2020 12:54-0400 BP Diastolic 78 mm[Hg] Erica Gardner [facility] 08-03-2020 12:54-0400 BP Systolic 135 mm[Hg] Erica Gardner [facility] 08-03-2020 12:54-0400 Height 170.2 cm Erica Gardner [facility] 08-03-2020 12:54-0400 Pulse (Heart Rate) 81 /min Erica Gardner [facility] 07-20-2020 13:19-0400 BMI (Body Mass Index) 22.71 kg/m2 Phyllis Mae [facility] Internal Medicine Work Phone: 07-20-2020 13:19-0400 Body weight 65.77 kg Phyllis Mae [facility] Medicine Work Phone: 07-20-2020 13:19-0400 BP Diastolic 82 mm[Hg] Phyllis Mae [facility] Internal Medicine Work Phone: Comment on above: Location: LUE; Position: Sitting 07-20-2020 13:19-0400 BP Systolic 144 mm[Hg] Phyllis Mae [facility] Medicine Work Phone: Comment on above: Location: LUE; Position: Sitting 07-20-2020 13:19-0400 BSA (Body Surface Area) 1.76 m2 Phyllis Mae [facility] Medicine Work Phone: 07-20-2020 13:19-0400 Height 170.18 cm Phyllis Mae [facility] Work Phone: 07-20-2020 13:19-0400 Pulse (Heart Rate) 84 /min Phyllis Mae [facility] Medicine Work Phone: 06-10-2020 19:01-0400 BP Diastolic 81 mm[Hg] Ray Scherer [facility] 06-10-2020 19:01-0400 BP Systolic 176 mm[Hg] [facility] 06-10-2020 19:01-0400 Pulse (Heart Rate) 74 /min [facility] 06-10-2020 19:01-0400 Pulse Oximetry 97 % Ray Scherer [facility] 06-10-2020 17:29-0400 BMI (Body Mass Index) 23.49 kg/m2 [facility] 06-10-2020 17:29-0400 Body Temperature 98.4 [degF] Ray Scherer [facility] 06-10-2020 17:29-0400 Body weight 68.04 kg Ray Scherer [facility] 06-10-2020 17:29-0400 Height 170.2 cm Ray Scherer [facility] 06-10-2020 17:29-0400 Respiratory Rate 16 /min Ray Scherer [facility] 05-19-2020 14:42-0400 BMI (Body Mass Index) 23.06 kg/m2 Phyllis Mae [facility] Work Phone: 05-19-2020 14:42-0400 Body weight 66.79 kg Phyllis Mae [facility] Medicine Work Phone: 05-19-2020 14:42-0400 BP Diastolic 80 mm[Hg] Phyllisallie Mae [facility] Work Phone: Comment on above: Location: LUE; Position: Sitting 05-19-2020 14:42-0400 BP Systolic 140 mm[Hg] Phyllis Mae [facility] Work Phone: Comment on above: Location: LUE; Position: Sitting 05-19-2020 14:42-0400 BSA (Body Surface Area) 1.78 m2 Phyllismax Mae [facility] Work Phone: 05-19-2020 14:42-0400 Height 170.18 cm Phyllis Mae [facility] Work Phone: 05-19-2020 14:42-0400 Pulse (Heart Rate) 82 /min Phyllis Mae [facility] Work Phone: 04-28-2020 14:29-0400 Diastolic blood pressure 56 ml Aquiles Lennathalie [facility] 04-28-2020 14:29-0400 Systolic blood pressure 15 ml [place] [facility] 04-28-2020 10:25-0400 BMI (Body Mass Index) 23.47 kg/m2 Aquiles Lennathalie [facility] 04-28-2020 10:25-0400 Body weight 68 kg [place] [facility] 04-28-2020 10:25-0400 BP Diastolic 85 mm[Hg] [place] [facility] 04-28-2020 10:25-0400 BP Systolic 155 mm[Hg] [place] [facility] 04-28-2020 10:25-0400 Height 170.2 cm Aquiles Pagenathalie [facility] 04-28-2020 10:25-0400 Pulse (Heart Rate) 76 /min Aquiles Pagenathalie [facility] 04-14-2020 16:00-0400 Pulse (Heart Rate) 72 /min [facility] 04-14-2020 16:00-0400 Pulse Oximetry 93 % [facility] 04-14-2020 15:45-0400 BP Diastolic 59 mm[Hg] [facility] 04-14-2020 15:45-0400 BP Systolic 91 mm[Hg] [facility] 04-14-2020 14:43-0400 Body Temperature 98.8 [degF] [facility] 04-14-2020 13:44-0400 Respiratory Rate 18 /min [facility] 04-14-2020 13:36-0400 Respiratory rate 0 /min [facility] 12-27-2019 10:54-0500 BMI (Body Mass Index) 23.49 kg/m2 David Waters [facility] 12-27-2019 10:54-0500 Body weight 68.04 kg David Waters [facility] 12-27-2019 10:54-0500 BP Diastolic 84 mm[Hg] David Waters [facility] 12-27-2019 10:54-0500 BP Systolic 171 mm[Hg] David Waters [facility] 12-27-2019 10:54-0500 Height 170.2 cm David [facility] 12-27-2019 10:54-0500 Pulse (Heart Rate) 73 /min David Waters [facility] 12-04-2019 15:20-0500 BP Diastolic 84 mm[Hg] Cameron Paupavan [facility] Comment on above: 12-04-2019 15:20-0500 BP Systolic 163 mm[Hg] Cameron [facility] Comment on above: 12-04-2019 14:58-0500 BMI (Body Mass Index) 23.02 kg/m2 Cameron Munguia [facility] 12-04-2019 14:58-0500 Body weight 66.68 kg Cameron Maiadilene [facility] 12-04-2019 14:58-0500 Height 170.2 cm Cameron Maiadilene [facility] 12-04-2019 14:58-0500 Pulse (Heart Rate) 56 /min Cameron Munguia [facility] 10-24-2019 15:44-0500 BP Diastolic 93 mm[Hg] [place] [facility] 10-24-2019 15:44-0500 BP Systolic 170 mm[Hg] Aquiles Pagenathalie [facility] 10-24-2019 15:42-0500 BMI (Body Mass Index) 23.02 kg/m2 Aquiles Pagenathalie [facility] 10-24-2019 15:42-0500 Body weight 66.68 kg Aquiles Lennathalie [facility] 10-24-2019 15:42-0500 Pulse (Heart Rate) 78 /min Aquiles Lennathalie [facility] 10-24-2019 15:42-0500 Pulse Oximetry 96 % Aquiles Pagenathalie [facility] 06-05-2019 13:30-0400 BP Diastolic 80 mm[Hg] [facility] 06-05-2019 13:30-0400 BP Systolic 162 mm[Hg] [facility] 06-05-2019 13:30-0400 Pulse (Heart Rate) 60 /min [facility] 06-05-2019 13:30-0400 Pulse Oximetry 95 % [facility] 06-05-2019 13:30-0400 Respiratory Rate 19 /min [facility] 06-05-2019 12:21-0400 BMI (Body Mass Index) 22.87 kg/m2 [facility] 06-05-2019 12:21-0400 Body Temperature 97.9 [degF] [facility] 06-05-2019 12:21-0400 Body weight 66.22 kg [facility] 06-05-2019 12:21-0400 Height 170.2 cm [facility] 05-27-2019 12:33-0400 BP Diastolic 97 mm[Hg] Cornelia Martin [facility] 05-27-2019 12:33-0400 BP Systolic 148 mm[Hg] Cornelia [facility] 05-27-2019 12:33-0400 Pulse Oximetry 99 % Cornelia [facility] 05-27-2019 11:25-0400 BMI (Body Mass Index) 22.87 kg/m2 Cornelia [facility] 05-27-2019 11:25-0400 Body Temperature 98.2 [degF] Cornelia [facility] 05-27-2019 11:25-0400 Body weight 66.22 kg Cornelia [facility] 05-27-2019 11:25-0400 Height 170.2 cm Cornelia [facility] 05-27-2019 11:25-0400 Pulse (Heart Rate) 84 /min Cornelia [facility] 05-27-2019 11:25-0400 Respiratory Rate 18 /min Cornelia [facility] 05-27-2019 10:55-0400 BMI (Body Mass Index) 22.87 kg/m2 [facility] 05-27-2019 10:55-0400 Body Temperature 98.29 [degF] [facility] 05-27-2019 10:55-0400 Body weight 66.22 kg [facility] 05-27-2019 10:55-0400 BP Diastolic 83 mm[Hg] Guillermo [facility] 05-27-2019 10:55-0400 BP Systolic 146 mm[Hg] Guillermo [facility] 05-27-2019 10:55-0400 Pulse (Heart Rate) 92 /min Guillermo [facility] 05-27-2019 10:55-0400 Pulse Oximetry 84 % [facility] 04-01-2019 13:19-0400 BMI (Body Mass Index) 23.02 kg/m2 Aquiles Pagenathalie [facility] 04-01-2019 13:19-0400 BP Diastolic 92 mm[Hg] Aquiles Pagenathalie [facility] 04-01-2019 13:19-0400 BP Systolic 165 mm[Hg] [facility] 04-01-2019 13:19-0400 Height 170.2 cm Aquiles [facility] 04-01-2019 13:19-0400 Pulse (Heart Rate) 81 /min Aquiles [facility] 04-01-2019 13:19-0400 Pulse Oximetry 98 % [place] [facility] 04-01-2019 13:19-0400 Weight 66.68 kg [place] [facility] 01-25-2019 09:090400 BMI (Body Mass Index) 23.65 kg/m2 Guillermo [facility] 01-25-2019 09:09-0400 Body Temperature 97.81 [degF] [facility] 01-25-2019 09:090400 Body weight 68.49 kg [facility] 01-25-2019 09:09-0400 BP Diastolic 90 mm[Hg] [facility] 01-25-2019 09:090400 BP Systolic 183 mm[Hg] [facility] 01-25-2019 09:090400 Height 170.2 cm [facility] 01-25-2019 09:090400 Pulse (Heart Rate) 83 /min Guillermo [facility] 01-22-2019 13:26-0400 BMI (Body Mass Index) 23.15 kg/m2 [facility] 01-22-2019 13:26-0400 BP Diastolic 60 mm[Hg] [facility] 01-22-2019 13:26-0400 BP Systolic 140 mm[Hg] [facility] 01-22-2019 13:26-0400 Pulse (Heart Rate) 92 /min [facility] 01-22-2019 13:26-0400 Pulse Oximetry 92 % [facility] 01-22-2019 13:26-0400 Weight 67.04 kg [facility] 11-28-2018 12:53-0500 BP Diastolic 79 mm[Hg] [facility] 11-28-2018 12:53-0500 BP Systolic 121 mm[Hg] [facility] 11-28-2018 12:50-0500 BMI (Body Mass Index) 23.34 kg/m2 [facility] 11-28-2018 12:50-0500 Body weight 67.59 kg [facility] 11-28-2018 12:50-0500 Height 170.2 cm [facility] 11-28-2018 12:50-0500 Pulse (Heart Rate) 83 /min Cameron Munguia [facility] 09-28-2018 09:25-0500 BMI (Body Mass Index) 23.71 kg/m2 [facility] 09-28-2018 09:25-0500 Body Temperature 97.81 [degF] Guillermo [facility] 09-28-2018 09:25-0500 BP Diastolic 76 mm[Hg] Guillermo [facility] 09-28-2018 09:25-0500 BP Systolic 169 mm[Hg] Guillermo [facility] 09-28-2018 09:25-0500 Height 170.2 cm Guillermo [facility] 09-28-2018 09:25-0500 Pulse (Heart Rate) 77 /min Guillermo [facility] 09-28-2018 09:25-0500 Pulse Oximetry 90 % [facility] 09-28-2018 09:25-0500 Weight 68.67 kg Guillermo [facility] 01-04-2018 10:46-0500 BMI (Body Mass Index) 23.87 kg/m2 Guillermo [facility] 01-04-2018 10:46-0500 Body Temperature 97.5 [degF] [facility] 01-04-2018 10:46-0500 BP Diastolic 94 mm[Hg] [facility] 01-04-2018 10:46-0500 BP Systolic 154 mm[Hg] [facility] 01-04-2018 10:46-0500 Height 172.7 cm Guillermo [facility] 01-04-2018 10:46-0500 Pulse (Heart Rate) 85 /min [facility] 01-04-2018 10:46-0500 Pulse Oximetry 93 % Guillermo [facility] 01-04-2018 10:46-0500 Weight 71.22 kg [facility] 11-22-2017 10:15-0500 BMI (Body Mass Index) 24.37 kg/m2 Tristen Menjivar [facility] Work Phone: 11-22-2017 10:15-0500 BP Diastolic 76 mm[Hg] Tristen Menjivar [facility] Work Phone: 11-22-2017 10:15-0500 BP Systolic 137 mm[Hg] Tristen Menjivar [facility] Work Phone: 11-22-2017 10:15-0500 Height 167.6 cm Tristen Menjivar [facility] Work Phone: 11-22-2017 10:15-0500 Pulse (Heart Rate) 63 /min Tristen Menjivar [facility] Work Phone: 11-22-2017 10:15-0500 Pulse Oximetry 97 % Tristen Menjivar [facility] Work Phone: 11-22-2017 10:15-0500 Weight 68.49 kg Tristen Menjivar [facility] Work Phone: 10-16-2017 15:35-0500 BMI (Body Mass Index) 24.21 kg/m2 [place] [facility] Work Phone: 10-16-2017 15:35-0500 BP Diastolic 74 mm[Hg] [place] [facility] Work Phone: 10-16-2017 15:35-0500 BP Systolic 135 mm[Hg] [place] [facility] Work Phone: 10-16-2017 15:35-0500 Height 167.6 cm [place] [facility] Work Phone: 10-16-2017 15:35-0500 Pulse (Heart Rate) 65 /min [place] [facility] Work Phone: 10-16-2017 15:35-0500 Pulse Oximetry 94 % [place] [facility] Work Phone: 10-16-2017 15:35-0500 Weight 68.04 kg [place] [facility] Work Phone: 09-07-2017 11:18-0500 BMI (Body Mass Index) 25.29 kg/m2 Guillermo Branham [facility] Work Phone: 09-07-2017 11:18-0500 BP Diastolic 85 mm[Hg] Guillermo Branham [facility] Work Phone: 09-07-2017 11:18-0500 BP Systolic 117 mm[Hg] Guillermodarcy Branham [facility] Work Phone: 09-07-2017 11:18-0500 Height 167.6 cm Guillermo Branham [facility] Work Phone: 09-07-2017 11:18-0500 Pulse (Heart Rate) 100 /min Guillermo Branham [facility] Work Phone: 09-07-2017 11:18-0500 Weight 71.08 kg Guillermo Branham [facility] Work Phone: 08-17-2017 09:01-0400 BMI (Body Mass Index) 26.05 kg/m2 Guillermo Branham [facility] Work Phone: 08-17-2017 09:01-0400 BP Diastolic 67 mm[Hg] Guillermo Branham [facility] Work Phone: 08-17-2017 09:01-0400 BP Systolic 118 mm[Hg] Guillermo Branham [facility] Work Phone: 08-17-2017 09:01-0400 Height 167.6 cm Guillermo Branham [facility] Work Phone: 08-17-2017 09:01-0400 Pulse (Heart Rate) 68 /min Guillermo Branham [facility] Work Phone: 08-17-2017 09:010400 Weight 73.21 kg Guillermo Branham [facility] Work Phone: Encounters Encounter Date Encounter Type Care Provider Facility Start: 08-22-2025 End: 08-22-2025 Emergency department patient visit Rayo Fitch Facility:[facility] Start: 08-06-2025 ambulatory Manohar Pablo Facility: [facility] Start: 06-11-2025 ambulatory Manohar Pablo OLS Facil ity:[facility] Start: 06-11-2025 Registered Referred Manohar Pablo MD -[facility] Work Phone: Start: 05-30-2025 ambulatory Sharmila Velozi ty:[facility] Start: 05-30-[address] Sharmila Arteaga MD -[facility] Work Phone: Start: 05-28-2025 ambulatory Sharmila Velozi ty:[facility] Start: 05-28-[address] Sharmila Arteaga MD -[facility] Work Phone: Start: 04-22-2025 End: 04-22-[address] Phyllis Mae MD Work Phone: -[facility] Start: 04-22-2025 End: 04-22-2025 Departed Referred Manohar Pablo MD -[facility] Work Phone: Start: 04-22-2025 End: 04-22-2025 ambulatory Phyllis Mae Facility:[facility] Start: 04-17-2025 End: 04-17-[address] Deshaun Salcedo MD -[facility] Work Phone: Start: 04-17-2025 End: 04-17-[address] Phyllis Mae MD Work Phone: [facility] Work Phone: Start: 04-16-2025 ambulatory Phyllis Mae Facilit y:[facility] Start: 04-16-2025 Registered Referred Manohar Pablo MD -[facility] Work Phone: Start: 04-10-2025 End: 04-10-2025 Emergency department patient visit Dr. Phyllis Mae MD Work Phone: -Emergency Department Work Phone: Start: 02-23-2025 ambulatory Sharmila LOTT Facili ty:[facility] Start: 02-23-[address] Sharmila Arteaga MD -[facility] Work Phone: Start: 02-19-2025 End: 02-19-2025 Departed Referred Manohar Pablo MD -[facility] Work Phone: Start: 02-19-2025 End: 02-19-2025 ambulatory Phyllis Mae Facility:[facility] Start: 01-27-2025 End: 01-27-[address] Phyllis Mae MD Work Phone: [facility] Work Phone: Start: 01-27-2025 End: 01-27-[address] Sharmila Arteaga MD -[facility] Work Phone: Start: 01-27-2025 End: 01-27-2025 ambulatory Sharmila LOTT Facility:[facility] Start: 01-02-2025 End: 01-02-2025 [facility] Start: 01-02-2025 End: 01-02-2025 Office outpatient visit 15 minutes BHUMIKA Lin DPM Work Phone: [facility] Comment on above: Onychodystrophy (Linda juanis Dx); Onychomycosis; PVD (peripheral vascular disease); Diabetic foot (HCC); Xerosis of skin Start: 12-24-2024 End: 12-24-[address] Phyllis Mae MD Work Phone: [facility] Work Phone: Start: 12-24-2024 End: 12-24-[address] Phyllis Mae MD Work Phone: -Laboratory Work Phone: Start: 12-24-2024 End: 12-24-2024 ambulatory [facility] Facility:[facility] Start: 12-05-2024 End: 12-05-2024 Office outpatient visit 25 minutes Phyllis Mae MD Work Phone: [facility] Comment on above: Fatigue, unspecified [...] encounter status Phyllis Mae MD Work Phone: [facility] Work Phone: Start: 12-05-2024 End: 12-05-2024 ambulatory [facility] Amb[facility] Start: 12-02-2024 End: 12-02-2024 Patient encounter procedure PHYLLIS MAE -Laboratory Work Phone: Start: 12-02-2024 End: 12-02-2024 ambulatory [facility] Facility:[facility] Start: 11-25-2024 End: 11-25-2024 Refill Fior Forbes CNP Work Phone: [facility] Endocr[facility]ology [place] Comment on above: 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, with long-term current use of insulin (HCC) (Primary Dx) Start: 11-21-2024 End: 11-21-2024 Documentation procedure Fior Forbes CNP Work Phone: [facility] Start: 11-12-2024 End: 11-12-2024 Refill Fior Forbes CNP Work Phone: [facility] Start: 11-07-2024 End: 11-07-2024 Refill Fior Forbes CNP Work Phone: [facility] Start: 11-05-2024 End: 11-05-2024 Assay of hemosiderin, quant Phyllis Mae MD Work Phone: [facility] Work Phone: Start: 11-05-2024 End: 11-05-2024 Patient encounter procedure Phyllis Mae MD Work Phone: [facility] Comment on above: Routine general medi sheldon examination at health care facility (Primary Dx); Chronic obstructive pulmonary disease, unspecified COPD type (Multi); Essential tremor; Type 2 diabetes mellitus with hyperglycemia, with long-term current use of insulin; Hypertension associated with type 2 diabetes mellitus (Multi); Mixed hyperlipidemia; Thrombocytopenia ([facility]-HCC); Folate deficiency; CRF (chronic renal failure), stage 3 (moderate) (Multi); Chronic fatigue; Anemia, unspecified type; Weakness of both arms; Weakness of both legs; Smoker Start: 11-05-2024 End: 11-05-2024 Encounter for general adult medical examination without abnormal findings [facility] Start: 11-05-2024 End: 11-05-2024 Refill Fior Forbes CNP Work Phone: [facility] Comment on above: 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, with long-term current use of insulin (HCC) (Primary Dx) Start: 10-07-2024 End: 10-08-2024 Refill David Waters CNP Work Phone: [facility] Comment on above: 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, with long-term current use of insulin (HCC) Start: 10-03-2024 End: 10-03-2024 Office outpatient visit 25 minutes Cameron Munguia DO Work Phone: [facility] Comment on above: History of carotid e ndarterectomy (Primary Dx); Stenosis of left carotid artery; Neurogenic claudication; PAD (peripheral artery disease) (HCC); Type 2 diabetes mellitus with stage 3b chronic kidney disease, with long-term current use of insulin (HCC); Tobacco use Start: 10-03-2024 End: 10-03-2024 Office outpatient visit 10 minutes BHUMIKA Lin DPM Work Phone: [facility] Comment on above: Onychodystrophy (Linda juanis Dx); Onychomycosis; PVD (peripheral vascular disease) (HCC); Tobacco use; Diabetic foot (HCC); Xerosis of skin Start: 10-03-2024 End: 10-03-2024 ambulatory [facility] Start: 09-16-2024 End: 09-16-2024 ambulatory [facility] Start: 09-10-2024 End: 09-11-2024 Refill Fior Forbes CNP Work Phone: [facility] Comment on above: 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, with long-term current use of insulin (HCC) (Primary Dx) Start: 09-09-2024 End: 09-09-2024 Office outpatient visit 25 minutes Fior Forbes CNP Work Phone: [facility] Comment on above: 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, with long-term current use of insulin (HCC) (Primary Dx); Dyslipidemia; Essential hypertension Chest pain, unspecif ied type (Primary Dx); History of CVA (cerebrovascular accident); Essential hypertension; PVD (peripheral vascular disease) (HCC) Start: 09-09-2024 End: 09-09-2024 ambulatory [facility] Start: 09-04-2024 End: 09-04-2024 ambulatory DAVIDPADMINI DOW [facility] Ambulatory Start: 07-25-2024 End: 07-25-2024 ambulatory [facility] Ambulatory Start: 07-25-2024 End: 07-25-2024 Office outpatient visit 25 minutes Phyllis Mae MD Work Phone: [facility] Comment on above: Thrombocytopenia ([facility] S-HCC) (Primary Dx); Chronic obstructive pulmonary disease, unspecified (Multi); Megaloblastic anemia; Folate deficiency; Fatigue, unspecified type; CRF (chronic renal failure), stage 3 (moderate) (Multi); Type 2 diabetes mellitus with hyperglycemia, with long-term current use of insulin (Multi) Start: 07-09-2024 End: 07-09-2024 ambulatory [facility] Start: 06-27-2024 End: 06-27-2024 Patient encounter procedure BHUMIKA Lin DPM Work Phone: [facility] Comment on above: Onychodystrophy (Linda juanis Dx); Onychomycosis; PVD (peripheral vascular disease) ([facility]); Tobacco use; Diabetic foot (HCC); Toe pain, bilateral Start: 06-27-2024 End: 07-01-2024 [facility] Start: 05-28-2024 End: 05-28-2024 ambulatory [facility] Ambulatory Start: 05-14-2024 End: 05-18-2024 ambulatory [facility] Start: 05-14-2024 End: 05-14-2024 Office outpatient visit 25 minutes BHUMIKA Lin DPM Work Phone: [facility] Comment on above: Ingrown toenail (Linda juanis Dx); Paronychia of great toe; PVD (peripheral vascular disease) (HCC); Tobacco use; Xerosis of skin; Diabetic foot (HCC) Start: 05-07-2024 End: 05-07-2024 Office outpatient visit 25 minutes David Waters CNP Work Phone: [facility] Comment on above: 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, with long-term current use of insulin (HCC) (Primary Dx) Start: 05-07-2024 End: 05-07-2024 ambulatory [facility] Start: 04-25-2024 End: 04-25-2024 ambulatory [facility] Start: 03-26-2024 End: 03-26-2024 Office outpatient visit 15 minutes BHUMIKA Lin DPM Work Phone: [facility] Comment on above: Diabetic foot (HCC) (Primary Dx); PVD (peripheral vascular disease) (HCC); Type 2 diabetes mellitus with stage 3b chronic kidney disease, with long-term current use of insulin (HCC); Claudication of lower extremity (HCC); Tobacco use; Xerosis of skin; Onychodystrophy; Onychomycosis; Toe pain, bilateral Start: 03-26-2024 End: 03-26-2024 ambulatory [facility] Start: 03-21-2024 End: 03-21-2024 ambulatory [facility] Start: 03-11-2024 ambulatory FIOR RAGLNAD [facility] Ambulatory Start: 03-08-2024 End: 03-12-2024 ambulatory [facility] Start: 02-29-2024 ambulatory [facility] Start: 02-27-2024 End: 02-27-2024 Assay of hemosiderin, quant hPyllis Mae MD Work Phone: [facility] Work Phone: Start: 02-27-2024 End: 02-27-2024 Patient encounter procedure Phyllis Mae MD Work Phone: [facility] Comment on above: Routine general medi sheldon examination at health care facility (Primary Dx); Superficial gastritis without hemorrhage, unspecified chronicity; Weakness of upper extremity; Weakness of both lower extremities; Recurrent falls; Neck pain; H/O: CVA (cerebrovascular accident); Essential tremor; Neurogenic claudication; Stable angina pectoris ([facility]-HCC); Hypertension associated with type 2 diabetes mellitus (Multi); Encounter for vaccination; 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Multi); Hypotensive episode Start: 02-22-2024 End: 02-22-2024 Emergency department patient visit [facility] Start: 02-22-2024 End: 02-22-2024 Patient encounter procedure Scott Warren PA-C Work Phone: [facility] Comment on above: Hypotension, unspeci fied hypotension type (Primary Dx); Upper respiratory tract infection, unspecified type Start: 02-22-2024 End: 02-22-2024 ambulatory [facility] Start: 02-21-2024 Telephone encounter Fior Forbes SCHEDULING SPECIALIST Work Phone: [facility] Comment on above: Medication Refill 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, with long-term current use of insulin (HCC) Start: 02-14-2024 Refill Fior cee SCHEDULING SPECIALIST Work Phone: [facility] Comment on above: 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, with long-term current use of insulin (HCC) (Primary Dx) Start: 01-04-2024 End: 01-08-2024 Refill Jing Leon SCHEDULING SPECIALIST Work Phone: [facility] Start: 12-25-2023 ambulatory [facility] Start: 12-20-2023 Refill Fior Gamino ee SCHEDULING SPECIALIST Work Phone: [facility] Start: 12-19-2023 End: 12-19-2023 Office outpatient new 30 minutes BHUMIKA Lin DPM Work Phone: [facility] Comment on above: Diabetic foot (HCC) (Primary Dx); PVD (peripheral vascular disease) (HCC); Type 2 diabetes mellitus with stage 3b chronic kidney disease, with long-term current use of insulin (HCC); Claudication of lower extremity (HCC); Tobacco use; Xerosis of skin; Onychodystrophy; Onychomycosis; Toe pain, bilateral Start: 12-19-2023 End: 12-23-2023 Refill Susan Baptiste MD Work Phone: [facility] Start: 12-19-2023 Tamy Burrell MD Work Phone: [facility] Start: 12-14-2023 End: 12-14-2023 Office outpatient visit 25 minutes Phyllis Mae MD Work Phone: [facility] Comment on above: Hypertension associa [...] 25 minutes Fior Forbes CNP Work Phone: [facility] Comment on above: 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, with long-term current use of insulin (HCC) (Primary Dx); Dyslipidemia; Essential hypertension Start: 10-11-2023 End: 10-11-2023 Office outpatient visit 40 minutes Deshaun Rodrigues MD Work Phone: [facility] Comment on above: Atypical parkinsonis m (Primary Dx); Diabetic polyneuropathy associated with type 2 diabetes mellitus (HCC); Essential tremor; Mild cognitive impairment Start: 10-11-2023 End: 10-15-2023 ambulatory [facility] Start: 08-22-2023 End: 08-22-2023 Office outpatient visit 25 minutes Phyllis Mae MD Work Phone: [facility] Comment on above: Type 2 diabetes silvino itus with hyperglycemic coma (CMS/HCC) (Primary Dx); Hyperlipidemia, unspecified hyperlipidemia type; Need for influenza vaccination; Chronic obstructive pulmonary disease, unspecified COPD type (CMS/[facility]); H/O: CVA (cerebrovascular accident); Essential tremor; Encounter for vaccination; Hypertriglyceridemia Start: 07-12-2023 End: 07-12-2023 Office outpatient visit 15 minutes Arianna Alfaro [facility] Work Phone: [facility] Comment on above: Essential hypertensi on (Primary Dx); Tobacco use; Dyslipidemia; History of cerebrovascular accident; Chronic obstructive pulmonary disease, unspecified COPD type (HCC); Musculoskeletal chest pain; Essential tremor Start: 05-15-2023 Refill David Waters SCHEDULING SPECIALIST Work Phone: [facility] Comment on above: Type 2 diabetes silivno itus with stage 3b chronic kidney disease, with long-term current use of insulin (HCC) (Primary Dx) Start: 04-05-2023 End: 04-05-2023 Office outpatient visit 40 minutes Deshaun Rodrigues MD Work Phone: [facility] Comment on above: Atypical parkinsonis m (HCC) (Primary Dx); Essential tremor; Cough syncope; Mild cognitive impairment Start: 03-26-2023 Refill Don Pennington MD Work Phone: [facility] Cardiology [facility] Primary [facility] Start: 03-07-2023 End: 03-07-2023 Office outpatient visit 25 minutes Phyllis Mae MD Work Phone: [facility] Comment on above: Rib pain (Primary Dx ); Stenosis of left carotid artery; Hyperlipidemia, unspecified hyperlipidemia type; Gastro-esophageal reflux disease without esophagitis; Superficial gastritis without hemorrhage, unspecified chronicity; Pulmonary emphysema, unspecified emphysema type (CMS/HCC); CRF (chronic renal failure), stage 3 (moderate) ([facility]); Hypertension associated with type 2 diabetes mellitus (CMS/HCC); Type 2 diabetes mellitus without complication, with long-term current use of insulin ([facility]/HCC); Other fatigue; Screening for prostate cancer; Vascular myelopathies ([facility]); Depression, major, in remission (CMS/HCC); Chronic stable angina ([facility]); Chronic shortness of breath; Hepatic steatosis; H/O fall; Abdominal pain, LUQ; Abdominal pain, RUQ Start: 12-28-2022 ambulatory Phyllis Mae Facilit y:[id number] Start: 11-15-2022 Chart Update Phyllis Ho i Work Phone: [facility] Work Phone: Start: 11-10-2022 Transcribe Orders Donovan Chiang [facility] Comment on above: Non-pressure chronic ulcer of left lower leg, 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) (Primary Dx) Start: 11-09-2022 End: 11-09-2022 Emergency department patient visit Christopher Galindo [facility] 02 Start: 11-07-2022 AUDIT Phyllis Ho i Work Phone: [facility] Work Phone: Start: 09-20-2022 Office outpatient vi sit 25 minutes Phyllis Mae Work Phone: [facility] Work Phone: Start: 09-20-2022 ambulatory Phyllis Mae Facilit [id number] Start: 09-13-2022 Refill David Waters CNP Work Phone: [facility] Start: 06-16-2022 End: 06-16-2022 Office outpatient new 60 minutes Deshaun Rodrigues MD Work Phone: [facility] Comment on above: Essential tremor (Pr imary Dx); Cough syncope Start: 06-15-2022 AUDIT Phyllis Taverasab i Work Phone: [facility] Work Phone: Start: 06-10-2022 End: 06-10-2022 Office outpatient visit 25 minutes Erica Gardner PA-C Work Phone: [facility] Comment on above: 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, with long-term current use of insulin (HCC) (Primary Dx); Essential hypertension Start: 06-02-2022 End: 06-02-2022 Office outpatient visit 25 minutes [place] Bay MD Work Phone: [facility] Comment on above: GREEN (dyspnea on exer tion) (Primary Dx) Start: 05-18-2022 AUDIT Phyllis Zarr i Work Phone: [facility] Work Phone: Start: 05-16-2022 AUDIT Phyllis Taverasab i Work Phone: [facility] Work Phone: Start: 05-11-2022 PTRECHECKBere, Provider : Lorena Ochoa, Status: Pen, Time: 11:15 AM Phyllis Mae Work Phone: [facility] [address] [place] Work Phone: Start: 05-10-2022 Patient encounter procedure Phyllis Mae Work Phone: [facility] Work Phone: Start: 05-09-2022 Patient encounter procedure Phyllis Mae Work Phone: [facility] [address] [place] Work Phone: Start: 05-09-[address] Phyllis Mae Fac ility:[id number] Start: 05-06-2022 PTFUADULT4, Provider : Quin Li, Status: Pen, Time: 2:00 PM Phyllis Mae Work Phone: [facility] [address] [place] Work Phone: Start: 05-06-2022 Patient encounter procedure Phyllis Mae Work Phone: [facility] [address] [place] Work Phone: Start: 05-04-2022 Patient encounter procedure [facility]yllismax Mae [facility] [place] Work Phone: Start: 05-04-[address] Phyllis Mae Fac ility:[id number] Start: 04-29-2022 Patient encounter procedure [facility]yllismax Mae Work Phone: [facility] [place] Work Phone: Start: 04-25-2022 Patient encounter procedure [facility]yllis Mae Work Phone[facility] [place] Work Phone: Start: 04-22-[address] Phyllis Byrnes ility:[id number] Start: 04-22-2022 Patient encounter procedure Phyllis Mae Work Phone: [facility] [address] [place] Work Phone: Start: 04-18-2022 Patient encounter procedure Phyllis Mae Work Phone: [facility] [address] [place] Work Phone: Start: 04-18-[address] Phyllis Mae Fac ility:[id number] Start: 04-06-2022 Patient encounter procedure Phyllis Mae Work Phone: [facility] Work Phone: Start: 04-06-[address] Phyllis Mae Fac ility:[id number] Start: 03-29-2022 Office outpatient vi sit 25 minutes Phyllis Mae Work Phone: [facility] Work Phone: Start: 03-29-2022 ambulatory Phyllis Mae Facilit y:[id number] Start: 03-15-2022 Patient encounter procedure [facility] Start: 03-01-2022 Office outpatient vi sit 25 minutes Phyllis Taverasabi Work Phone: [facility] Work Phone: Start: 03-01-2022 ambulatory Phyllis Taverasabi Facilit y:[id number] Start: 02-16-2022 AUDIT Phlylis Asifrrab i Work Phone: [facility] Work Phone: Start: 01-10-2022 End: 01-10-2022 Office outpatient visit 25 minutes Santana Orosco PA-C Work Phone: [facility] Comment on above: 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, with long-term current use of insulin (HCC) (Primary Dx) Start: 01-09-2022 Refill David Waters CNP Work Phone: [facility] Comment on above: Type 2 diabetes silvino itus without complications (HCC) Start: 01-04-2022 Office outpatient vi sit 15 minutes Phyllis Taverasabi Work Phone: [facility] Work Phone: Start: 01-04-2022 ambulatory Phyllis Taverasabi Facilit y:[id number] Start: 12-30-2021 AUDIT Phyllis Asifrrab i Work Phone: [facility] Work Phone: Start: 12-28-2021 AUDIT Phyllis Asifrrab i Work Phone: [facility] Work Phone: Start: 12-01-2021 AUDIT Phyllis Zarrab i Work Phone: [facility] Work Phone: Start: 10-18-2021 Patient encounter procedure Phyllis Taverasabi Work Phone: [facility] [address] [place] Work Phone: Start: 10-12-2021 AUDIT Phyllis Zarrab i Work Phone: [facility] Work Phone: Start: 10-04-2021 Office outpatient vi sit 25 minutes Phyllis Darcyabi Work Phone: [facility] Work Phone: Start: 09-30-2021 Chart Update Phyllis Taverasab i Work Phone: [facility] Work Phone: Start: 09-29-2021 Patient encounter procedure [facility]yllis Asifrrabi [facility] [address] [place] Work Phone: Start: 09-20-2021 Patient encounter procedure Phyllis Asifrrabi Work Phone: [facility] [address] [place] Work Phone: Start: 09-17-2021 Patient encounter procedure Phyllis Taverasabi Work Phone: [facility] [address] [place] Work Phone: Start: 09-17-2021 PTFUADULT4, Provider : Bib Payne, Status: Pen, Time: 12:30 PM Phyllis Yefrirrabi Work Phone: [facility] Work Phone: Start: 09-15-2021 AUDIT Phyllis Taverasab i Work Phone: [facility] Work Phone: Start: 09-15-2021 PTFUADULT4, Provider : Bib Payne, Status: Pen, Time: 1:15 PM Phyllis Yefrirrabi Work Phone: [facility] Work Phone: Start: 09-14-2021 Office outpatient vi sit 25 minutes Phyllis Yefrirrabi Work Phone: [facility] Work Phone: Start: 09-14-2021 Patient encounter procedure Phyllis Mae Work Phone: [facility] Work Phone: Start: 09-10-2021 Patient encounter procedure [facility]yllis Mae [facility] [address] [place] Work Phone: Start: 09-10-2021 PTFUADULT4, Provider : Bib Payne, Status: Pen, Time: 12:30 PM Phyllis Mae Work Phone: [facility] Work Phone: Start: 09-09-2021 End: 09-09-2021 Office outpatient visit 10 minutes Dylon Galindo MD Work Phone: [facility] Orthopedic & Sports Medicine Physicians Comment on above: Closed displaced fra cture of greater trochanter of right femur with routine healing, subsequent encounter (Primary Dx) Start: 09-09-2021 Chart Update Phyllis Ho i Work Phone: [facility] Work Phone: Start: 09-08-2021 Patient encounter procedure [facility] Mae [facility] Start: 09-06-2021 Patient encounter procedure [facility]yllis Mae Work [facility]: [facility] [address] [place] Work Phone: Start: 09-03-2021 Patient encounter procedure [facility]yllis Mae Work Phone: [facility] [address] [place] Work Phone: Start: 08-27-2021 Patient encounter procedure [facility]yllis Mae [facility] [address] [place] Work Phone: Start: 08-25-2021 [id number], Provider : Bib Payne, Status: Pen, Time: 12:30 PM Phyllis Mae Work Phone: [facility] [address] [place] Work Phone: Start: 08-24-2021 EPV, Provider: Phyllis Mae, Status: Giacomo, Time: 11:15 AM Phyllis Taverasabi [facility] [address] [place] Work Phone: Start: 08-24-2021 Office outpatient vi sit 25 minutes Phyllis Taverasabi Work Phone: [facility] Work Phone: Start: 08-23-2021 Patient encounter procedure [facility]yllis Mae [facility] [place] Work Phone: Start: 08-11-2021 Patient encounter procedure [facility]yllis Mae [facility] Work Phone: Start: 08-03-2021 End: 08-03-2021 Office outpatient visit 25 minutes David Waters [facility] Work Phone: [facility] Endocrinology Physicians Comment on above: 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, with long-term current use of insulin (HCC) (Primary Dx); Essential hypertension Start: 07-19-2021 AUDIT Pyhllis Taverasab i Work Phone: [facility] Work Phone: Start: 07-12-2021 Office outpatient vi sit 40 minutes Phyllis Mae Work Phone: [facility] Work Phone: Start: 07-01-2021 Chart Update Phyllis Taverasab i Work Phone: -[facility] Work Phone: Start: 06-17-2021 FUV, Provider: Jin Robbins II, Status: Pen, Time: 11:00 AM Phyllis Mae Work Phone: [facility] Work Phone: Start: 06-16-2021 Chart Update Phyllis Ho i Work Phone: [facility] Work Phone: Start: 06-01-2021 Office outpatient vi sit 40 minutes Phyllis Mae Work Phone: [facility] Work Phone: Start: 05-21-2021 End: 05-21-2021 Postop follow up visit related to original px Dylon Galindo MD Work Phone: [facility] Phys[facility] Comment on above: Closed displaced fra cture of greater trochanter of right femur with routine healing, subsequent encounter (Primary Dx) Start: 04-27-2021 Critical care ill/in jured patient init 30-74 min Lev Stockton MD Work Phone: [facility] Start: 04-27-2021 End: 05-11-2021 Evaluation and management of inpatient Lev Stockton MD Work Phone: [facility] Start: 04-26-2021 End: 04-26-2021 Documentation procedure Kateryna Yeboah CNP Work Phone: [facility] Start: 04-22-2021 End: 04-22-2021 Orders Only Kateryna Yeboah SCHEDULING SPECIALIST Work Phone: [facility] Cardiology and Primary Care Comment on above: Urinary retention (P rimary Dx) Start: 04-19-2021 End: 04-19-2021 Documentation procedure Kateryna Yeboah CNP Work Phone: [facility] Start: 04-05-2021 End: 04-05-2021 Documentation procedure Kateryna Yeboah CNP Work Phone: [facility] Start: 04-01-2021 AUDIT Phyllis Ho i Work Phone: [facility] Internal Medicine Work Phone: Start: 03-24-2021 End: 03-24-2021 Office outpatient visit 10 minutes Dylon Galindo MD Work Phone: [facility] Phys[facility] Comment on above: Closed displaced fra cture of greater trochanter of right femur with routine healing, subsequent encounter (Primary Dx) Start: 03-22-2021 End: 03-22-2021 Documentation procedure Kateryna Yeboah SCHEDULING SPECIALIST Work Phone: [facility] Start: 03-16-2021 End: 03-16-2021 Orders Only Kateryna Yeboah SCHEDULING SPECIALIST Work Phone: [facility] Start: 03-15-2021 End: 03-15-2021 Documentation procedure Kateryna Yeboah SCHEDULING SPECIALIST Work Phone: [facility] Start: 2021 End: 2021 Orders Only Kateryna Yeboah SCHEDULING SPECIALIST Work Phone: [facility] Comment on above: Claudication of lowe r extremity (HCC) (Primary Dx) Start: 01-13-2021 End: 01-13-2021 Refill David Waters Work Phone: [facility] Endocrinology Physicians Comment on above: Type 2 diabetes silvino itus without complications (HCC) Start: 01-11-2021 End: 01-11-2021 Subsequent hospital visit by physician Lance Modi Work Phone: [facility] Comment on above: Arrived Start: 01-01-2021 End: 01-01-2021 Patient encounter procedure Tosha Mosher Work Phone: [facility] Start: 12-05-2020 End: 12-05-2020 Orders Only Tosha Mosher Work Phone: [facility] Start: 11-23-2020 End: 11-23-2020 Phys/qhp telephone evaluation 21-30 min [place] Work Phone: [facility] Heart & Vascular Physicians Comment on [...] visit by physician Phyllis Mae Work Phone: [facility] Mammography Comment on above: Nipple pain Start: 08-17-2020 Patient encounter procedure Phyllis Mae [facility] Work Phone: Start: 08-03-2020 End: 08-03-2020 Office outpatient visit 25 minutes Erica Gardner Work Phone: [facility] End[facility] Phys[facility] Comment on above: Inadequately control led diabetes mellitus (HCC) (Primary Dx); Dyslipidemia Start: 07-20-2020 Patient encounter procedure Phyllis Mae [facility] Work Phone: Start: 06-10-2020 End: 06-10-2020 Emergency department patient visit Ray Jin Scherer Work Phone: [facility] Emergency Department Comment on above: Closed [...] 06-08-2020 Patient encounter procedure Phyllis Mae MD [facility] Work Phone: Start: 05-25-2020 End: 05-25-2020 Subsequent hospital visit by physician Lola Barksdale Work Phone: [facility] CT Scan Comment on above: Screening for [...] 04-28-2020 Subsequent hospital visit by physician [place] Work Phone: [facility] Vascular Phys[facility] Comment on above: Chest pain, unspecif ied type; PVD (peripheral vascular disease) (HCC) Arrived Start: 04-25-2020 End: 04-25-2020 Patient encounter procedure [place] [facility] Start: 04-16-2020 Patient encounter procedure Phyllis Mae [facility] Work Phone: Start: 04-14-2020 End: 04-14-2020 Emergency department patient visit RAY ABDI [facility] Start: 04-14-2020 End: 04-14-2020 Emergency department patient visit Rayeneida Abdi [facility] Work Phone: [facility] Emergency Department Comment on above: Fall, initial encoun ter (Primary Dx); Alcoholic intoxication with complication (HCC) Start: 04-02-2020 Patient encounter procedure Phyllis Mae [facility] Work Phone: Start: 02-17-2020 End: 02-17-2020 Patient encounter procedure Jasmyn Castillo [facility] Comment on above: proactive outreach Start: 02-11-2020 Refill Lola Barksdale MD Work Phone: [facility] Pulmonary Physicians Start: 12-27-2019 End: 12-27-2019 Office outpatient new 30 minutes David Waters Work Phone: [facility] Endocrinology Physicians Comment on above: IDDM (insulin depend ent diabetes mellitus) (HCC) (Primary Dx); Inadequately controlled diabetes mellitus (HCC); Dyslipidemia Start: 12-18-2019 Patient encounter procedure Phyllis Mae [facility] Work Phone: Start: 12-04-2019 End: 12-04-2019 Office outpatient visit 25 minutes Cameron Munguia Work Phone: [facility] Vascular Physicians Comment on above: Left carotid artery stenosis (Primary Dx); Stenosis of left iliac artery (HCC); History of carotid endarterectomy; Neurogenic claudication Start: 12-04-2019 End: 12-04-2019 Subsequent hospital visit by physician Cameron Munguia Work Phone: [facility] V[facility] Phys[facility] Comment on above: Stenosis of left car otid artery; History of right-sided carotid endarterectomy Stenosis of left lorenzo ac artery (HCC) Start: 10-24-2019 End: 10-24-2019 Office outpatient visit 25 minutes [place] Work Phone: [facility] Comment on above: Abnormal stress test Start: 06-05-2019 End: 06-05-2019 Emergency department patient visit PHYLLIS TAVERASCLEMENCIA [facility] Start: 06-05-2019 End: 06-05-2019 Emergency department patient visit Bret Fuentes Work Phone: [facility] Emergency Department Comment on above: COPD exacerbation (H CC) (Primary Dx) Start: 05-27-2019 End: 05-27-2019 Emergency department patient visit Cornelia Martin Work Phone: [facility] Emergency Department Comment on above: Pneumonia of left lo wer lobe due to infectious organism (HCC) (Primary Dx) Start: 05-27-2019 End: 05-27-2019 Office outpatient visit 25 minutes Guillermo Branham Work Phone: [facility] Cancer Physicians Comment on above: Anemia, unspecified type (Primary Dx); Monoclonal gammopathy; Fatigue, unspecified type; SOB (shortness of breath) Start: 05-07-2019 Refill Tristen bray MD Work Phone: [facility] Comment on above: Medication Refill (L ovastatin ) Start: 04-01-2019 End: 04-01-2019 Office outpatient visit 25 minutes [place] Work Phone: [facility] Vascular Phys[facility] Comment on above: Facial numbness (Linda juanis Dx); Statin intolerance; Abnormal stress test Start: 01-25-2019 End: 01-25-2019 Office outpatient visit 25 minutes Guillermo Branham Work Phone: [facility] Cancer Physicians Comment on above: Anemia, unspecified type (Primary Dx); Monoclonal gammopathy Start: 01-22-2019 End: 01-22-2019 Office outpatient visit 15 minutes Lola Barksdale Work Phone: [facility] Pulmonary Physicians Comment on above: Chronic obstructive pulmonary disease, unspecified COPD type (HCC) (Primary Dx); Cigarette Smoker; Screening for malignant neoplasm of respiratory organ Start: 01-21-2019 End: 01-21-2019 Patient encounter procedure Lola Barksdale Facility:[facility] Comment on above: Screening for malign ant neoplasm of respiratory organ; Cigarette Smoker Start: 11-28-2018 End: 11-28-2018 Office outpatient visit 25 minutes [place] Work Phone: [facility] Vascular Physicians Comment on above: Stenosis of left car otid artery (Primary Dx); History of right-sided carotid endarterectomy; Stenosis of left iliac artery (HCC); Neurogenic claudication Start: 11-26-2018 Patient encounter procedure [place] Facility:[facility] Start: 11-26-2018 End: 11-26-2018 Patient encounter procedure [place] Work Phone: [facility] Vascular Phys[facility] Comment on above: Bilateral carotid ar francisco stenosis Start: 11-26-2018 End: 11-26-2018 Subsequent hospital visit by physician [place] Work Phone: [facility] Vascular Phys[facility] Comment on above: Prominent abdominal aortic pulse Start: 11-25-2018 Refdion Barksdale MD Work Phone: [facility] Pul[facility] Physicians Start: 11-15-2018 Patient encounter procedure Phyllis Mae Facility:[facility] Start: 11-15-2018 End: 11-16-2018 Patient encounter procedure Phyllis Mae Facility:[facility] Start: 11-13-2018 Patient encounter procedure [place] Facility:[place] Start: 11-13-2018 End: 11-13-2018 Patient encounter procedure [place] Work Phone: [facility] V[facility] Phys[facility] Comment on above: Chest pain, unspecif ied type Start: 11-12-2018 End: 11-12-2018 Patient encounter procedure PHYLLIS [facility] Start: 10-16-2018 End: 10-17-2018 Patient encounter procedure Phyllis Mae Facility:[facility] Start: 09-28-2018 End: 09-28-2018 Office outpatient visit 25 minutes Guillermo Branham Work Phone: [facility] Cancer Physicians Comment on above: Anemia, unspecified type (Primary Dx); Monoclonal gammopathy; Fatigue, unspecified type Start: 09-19-2018 Patient encounter procedure Josh Main Martell Facility:[place] Start: 09-19-2018 End: 09-19-2018 Patient encounter procedure Josh Santana Moura Work Phone: [facility] Start: 07-17-2018 End: 07-18-2018 Patient encounter procedure Jose Dailey Facility:[facility] Start: 07-02-2018 Patient encounter procedure Rochelle Kamadana Facility:[place] Start: 07-02-2018 End: 07-02-2018 Patient encounter Rochelle Kamadana Work Phone: [facility] Start: 05-10-2018 Patient encounter procedure Guillermo Esdras Facility:[place] Start: 05-10-2018 End: 05-10-2018 Patient encounter Guillermo Esdras Work Phone: [facility] Start: 05-07-2018 Patient encounter procedure Tristen Menjivar Facility:[place] Start: 05-07-2018 End: 05-07-2018 Ambulatory Tristen Menjivar Work Phone: [facility] V[facility] Phys[facility] Start: 04-25-2018 End: 04-26-2018 [facility] Start: 04-17-2018 End: 04-18-2018 Patient encounter procedure Jose Dailey Facility:[facility] Start: 04-08-2018 End: 04-08-2018 [facility] Start: 01-17-2018 Patient encounter procedure Lola Shamir Facility:[place] Start: 01-17-2018 End: 01-17-2018 Ambulatory Lola Ann Shamir Work Phone: [facility] Start: 01-11-2018 End: 01-12-2018 Patient encounter procedure Lola Barksdale Facility:[facility] Start: 01-10-2018 End: 01-11-2018 Patient encounter procedure Davi Nelson Facility:[facility] Start: 01-04-2018 Office/outpatient vi sit, est, level 4 Guillermo Branham Work Phone: [facility] Cancer Physicians Start: 12-21-2017 End: 12-22-2017 Patient encounter procedure Jose Dailey Facility:[facility] Start: 12-20-2017 Patient encounter procedure Guillermo Branham Facility:[place] Start: 12-20-2017 End: 12-20-2017 Ambulatory Rochelle Cheung Work Phone: [facility] Start: 12-18-2017 End: 12-18-2017 Patient encounter procedure Davi R Omar Facility:[facility] Start: 11-22-2017 Office/outpatient vi sit, est, level 4 Tristen Zelayavin Menjivar Work Phone: [facility] V[facility] Phys[facility] Start: 10-16-2017 Office/outpatient vi sit, est, level 3 [place] Work Phone: [facility] Start: 09-07-2017 Office outpatient vi sit 25 minutes Guillermo Esdras Work Phone: [facility] Cancer Physicians Start: 09-06-2017 End: 09-06-2017 Ambulatory Lola Barksdale Work Phone: [facility] Start: 08-30-2017 End: 08-30-2017 Ambulatory Guillermo Branham Work Phone: [facility] Start: 08-17-2017 End: 08-17-2017 Patient encounter procedure Guillermo Branham Work Phone: [facility] Start: 08-17-2017 Office outpatient ne w 30 minutes Guillermo Esdras Work Phone: [facility] Cancer Physicians Start: 07-07-2017 Ophthalmic examinati on and evaluation Phyllis Mae Work Phone: [facility] Work Phone: Ophthalmic examinati on and evaluation Phyllis Mae MD [facility] Work Phone: Patient encounter procedure Phyllis Mae Work Phone: [facility] Work Phone: Procedures Date Procedure Procedure Detail Performing Clinician Start: 06-11-2025 Serum inorganic phosphate measurement Dr[address] Phyllis Mae MD Work Phone: Start: 05-30-[address] Phyllis Mae MD Work Phone: Start: 05-30-2025 Urnls dip stick/tablet reagent auto microscopy Dr. Phyllis Mae MD Work Phone: Start: 04-22-[address] Neda Mae MD Work Phone: Start: 04-22-2025 Serum inorganic phosphate measurement Dr. Phyllis Mae MD Work Phone: Start: 04-22-2025 Total iron binding capacity measurement Dr. Phyllis Mae MD Work Phone: Start: 04-10-2025 XR knee, [address] [...] routine ecg w/least 12 lds w/i&r [place] MD Work Phone: Start: 06-27-2024 Microalbumin [Mass/volume] in Urine by Test strip BHUMIKA Lin DPM Work Phone: Start: 04-25-2024 Lipid 1996 panel - Serum or Plasma Phyllis Mae MD Work Phone: Start: 03-08-2024 Microalbumin [Mass/volume] in Urine by Test strip BHUMIKA Lin DPMigdalia Work Phone: Start: 12-19-2023 Microalbumin [Mass/volume] in Urine by Test strip BHUMIKA Lin DPM Work Phone: Start: 07-11-2023 Microalbumin [Mass/volume] in Urine by Test strip Arianna Ream SCHEDULING SPECIALIST Work Phone: Start: 01-31-2023 Ophthalmic examination and evaluation Don Pennington MD Work Phone: Start: 12-01-2022 3 comp foot exam completed Don patterson MD Work Phone: Start: 12-01-2022 Microalbumin [Mass/volume] in Urine by Test strip Don Pennington MD Work Phone: Start: 06-10-2022 3 comp foot exam completed Erica Gardner PAArturC Work Phone: Start: 01-10-2022 3 comp foot exam completed Santana goldsmith PA-C Work Phone: Start: 12-14-2021 Microalbumin [Mass/volume] in Urine by Test strip David Waters CNP Work Phone: Start: 09-29-2021 Lipid 1996 panel - Serum or Plasma Phyllis Mae MD Work Phone: Start: 08-03-2021 Hemoglobin glycosylated a1c David Waters CNP Work Phone: Start: 08-03-2021 3 comp foot exam completed Dvaid vazquez SCHEDULING SPECIALIST Work Phone: Start: 05-11-2021 End: 05-11-2021 Glucose [...] 05-02-2021 Drug screen quantitative vancomycin Manuelito Durand [facility],PharmD Start: 05-02-2021 Glucose measurement Bryce Alvarez MD Work Phone: Start: 05-02-2021 RADIOLOGY SCANS Provider Not In System Start: 05-02-2021 Glucose measurement Bryce Alvarez MD Work Phone: Start: 05-02-2021 Glucose measurement Viyelena Alvarez MD Work Phone: Start: 05-02-2021 Glucose measurement Bryce Alvarez MD Work Phone: Start: 05-02-2021 End: 05-02-2021 Radiologic examination femur 1 view Don Pennington MD Work Phone: Start: 05-02-2021 Creatinine blood Kenna Quintero [facility],PharmD Start: 05-01-2021 Glucose measurement Bryce Alvarez [...] Work Phone: Start: 04-27-2021 Glucose measurement Lev Stockton MD Work Phone: Start: 04-27-2021 Basic metabolic panel calcium total Geraldine Reilly MD Work Phone: Start: 04-27-2021 Electrocardiogram Provider Not In System Start: 04-27-2021 End: 04-27-2021 Culture bacterial quanttative colony count urine Lev Stockton MD Work Phone: Start: 04-27-2021 SARS-CoV-2 (COVID-19) RdRp gene [Presence] in Respiratory specimen by BANDAR with probe detection Lev Stockton MD Work Phone: Start: 04-27-2021 Gases blood ph direct quynh xcpt pulse oximitry Lev Stockton MD Work Phone: Start: 04-27-2021 OBTAIN VENOUS BLOOD GASES AND PERFORM Lev Stockton MD Work Phone: Start: 04-27-2021 End: 04-27-2021 Ecg routine ecg w/least 12 lds w/i&r Lev Stockton MD Work Phone: Start: 04-27-2021 End: 04-27-2021 Assay of magnesium Geraldine Reilly MD Work Phone: Start: 04-27-2021 LAVENDER TOP Lev Stockton MD Work Phone: Start: 04-27-2021 MINT GREEN TOP Lev Stockton MD Work Phone: Start: 04-27-2021 RAINBOW DRAW Lev Stockton MD Work Phone: Start: 04-27-2021 Adult depression [...] 08-03-2020 3 comp foot exam completed Phyllis cantu Start: 07-28-2020 Microalbumin [Mass/volume] in Urine by Test strip Erica Kendra Start: 06-10-2020 Incentive spirometry Amanda Gorman Work Phone: Start: 06-10-2020 Radiographic imaging procedure Ray Scherer Work Phone: Start: 06-10-2020 End: 06-10-2020 Computerized tomography, limited studies Ray Scherer Work Phone: Start: 06-10-2020 End: 06-10-2020 Glucose [Mass/volume] in Blood Amanda Gorman Work Phone: Start: 05-25-2020 Low dose computed tomography of thorax Lolaseven Barksdale Work Phone: Start: 05-19-2020 Xray Chest 2 View PA + Lateral Phyllis Z arrclemencia Start: 05-07-2020 Ct thorax w/o contrast material Phyllis Taverasabi Start: 05-07-2020 VASC LAB PVR (Arterial Physiologic) w/ Exercise Phyllis Asifrrabi Start: 04-28-2020 Radionuclide myocardial perfusion study [place] Work Phone: Start: 04-14-2020 End: 04-14-2020 Ct [...] Phone: Start: 04-14-2020 Prothrombin time [facility] Start: 04-14-2020 COVID-19, MOLECULAR Ray Abdi Juan Work Phone: Start: 04-14-2020 Ethanol [Mass/volume] in [...] 12-27-2019 3 comp foot exam completed Jasmyn Barnes Start: 12-11-2019 Microalbumin [Mass/volume] in Urine by Test strip David Waters Start: 12-04-2019 Measurement of segmental blood pressure of artery of lower limb using doppler ultrasonography Cameron Munguia Work Phone: Start: 12-04-2019 Carotid artery doppler assessment Cameron Munguia Work Phone: Start: 06-05-2019 Natriuretic peptide [facility] Start: 06-05-2019 Assay of troponin quantitative [facility] Start: 06-05-2019 12 lead ECG Bret Fuentes Work Phone: Start: 06-05-2019 Basic metabolic panel calcium total [facility] Start: 06-05-2019 POC CBC AND DIFFERENTIAL Bret Fuentes Work Phone: Start: 06-05-2019 Standard chest X-ray Bret Fuentes Work Phone: Start: 05-27-2019 Standard chest X-ray Wendy Michelleadilene Ernst Work Phone: Start: 05-27-2019 Complete blood count with white cell differential, automated Wendybrigid Martinez Ernst Work Phone: Start: 05-27-2019 Complete blood count with white cell differential, manual Wendy Michelle Ernst Work Phone: Start: 05-27-2019 Comprehensive metabolic 2000 panel - Serum or Plasma Wendybrigid Martinez Ernst Work Phone: Start: 05-27-2019 LIGHT BLUE TOP Cornelia Martin Work Phone: Start: 05-27-2019 RAINBOW DRAW Cornelia Martin Work Phone: Start: 04-01-2019 12 lead ECG [place] Work Phone: Start: 01-21-2019 Low dose computed tomography of thorax Lola [place] Work Phone: Start: 11-26-2018 Carotid artery doppler assessment [place] Work Phone: Start: 11-26-2018 Dup-scan aorta ivc iliac vascl/bpgs uni/lmtd [place] Work Phone: Start: 11-13-2018 Cv strs tst xers&/or rx cont ecg w/o i&r [place] Work Phone: Start: 11-12-2018 Lipid 1996 panel - Serum or Plasma Historical Provider Start: 11-12-2018 End: 11-12-2018 ORDERS (OUTSIDE) Historical Provider Start: 09-19-2018 End: 09-19-2018 Complete blood count with white cell differential, manual Guillermo Branham Work Phone: Start: 09-19-2018 End: 09-19-2018 Comprehensive metabolic 2000 panel - Serum or Plasma Guillermo Branham Work Phone: Start: 09-19-2018 End: 09-19-2018 Ferritin [Mass/volume] in Serum or Plasma Guillermo Branham Work Phone: Start: 09-19-2018 End: 09-19-2018 Reticulocytes panel - Blood Guillermo Branham Work Phone: Start: 07-02-2018 End: 07-02-2018 Albumin serum plasma/whole blood Rochelle Cheung Work Phone: Start: 07-02-2018 End: 07-02-2018 Assay of magnesium Rochelle Pinona Work Phone: Start: 07-02-2018 End: 07-02-2018 Assay of phosphorus inorganic Rochelle espinosa Work Phone: Start: 07-02-2018 End: 07-02-2018 Calcium total Rochelle Pinona Work Phone: Start: 07-02-2018 End: 07-02-2018 Electrolyte panel Rochelle Odettena Work Phone: Start: 07-02-2018 End: 07-02-2018 Hemoglobin and Hematocrit panel - Blood Rochelle Odettena Work Phone: Start: 07-02-2018 End: 07-02-2018 [facility] - PARATHYROID HORMONE Rochelle Pinon a Work Phone: Start: 07-02-2018 End: 07-02-2018 [facility] - PROTEIN PANEL, URINE Rochelle Pino na Work Phone: Start: 07-02-2018 Microalbumin [Mass/volume] in Urine by Test strip Jalaj Chandna Start: 04-25-2018 Microalbumin [Mass/volume] in Urine by Test strip [place] Start: 12-18-2017 Colonoscopy Phyllis Mae MD Work [...] Start: 10-30-2006 Operative procedure on hand Phyllis Taveras clem[place] Work Phone: Colonoscopy Phyllis Mae Comment on above: Completed: 2013 End: 06-30-2016 Esophagogastroduodenoscopy Phyllis cantu History of carotid endarterectomy History of carotid endarterectomy Cameron Munguia DO Work Phone: Operative procedure on hand Phyllis Mae Comment on above: Completed: 2006 Operative procedure on hip F mirian Mae Work Phone: End: 08-30-2010 Procedure on neck Phyllis Carmelita End: 07-10-2015 Repair of musculotendinous cuff of shoulder Phyllis Mae Plan of Treatment Date Care Activity Detail Author Start: 06-10-2030 DTaP/Tdap/Td Vaccines (2 - Td or Tdap) DTaP/Tdap/Td Vaccines (2 - Td or Tdap) [facility] Start: 06-10-2030 Tetanus vaccination Tetanus: Every 10yrs [facility] Start: 02-19-2028 Screening for malignant neoplasm of colon [facility] Start: 03-08-2026 Glaucoma screening Diabetes: Retinopathy Screening [facility] Start: 11-06-2025 Medicare Annual Wellness Visit Medicare Annual Wellness Visit (AWV) [facility] Start: 11-05-2025 Medicare Wellness Visit Medicare Wellness Visit [facility] Start: 11-05-2025 End: 11-05-2025 Patient encounter procedure 11/05/2025 12:45 PM EST Office Visit [facility] [address] [place] [phone] Phyllis Mae MD [address] [place], [place] [phone] [facility] Start: 09-09-2025 Diabetic foot examination Diabetic Foot Exam [facility] Start: 05-07-2025 Diabetic foot examination Diabetic Foot Exam [facility] Start: 04-25-2025 Lipid panel Lipid Panel [facility] Start: 04-10-2025 [facility] Start: 04-08-2025 End: 04-08-2025 Patient encounter procedure 04/08/2025 1:15 PM EDT Office Visit [facility] [address] [place] [phone] BHUMIKA Lin, DPM [address] [place] [address] [facility] Start: 04-05-2025 Prostate specific antigen measurement PSA Level [facility] Start: 03-08-2025 Glaucoma screening [facility] Start: 03-08-2025 Urine screening for protein [facility] Start: 03-04-2025 Urine screening for protein eGFR Diabetes [facility] Start: 03-04-2025 End: 03-04-2025 Patient encounter procedure 03/04/2025 12:45 PM EDT Office Visit [facility] [address] [place] [phone] Phyllis Mae MD [address] [place] [address] [facility] Start: 02-27-2025 Medicare Annual Wellness Visit Medicare Annual Wellness Visit (AWV) [facility] Start: 02-26-2025 History and physical examination, annual for health maintenance Wellness Visit [facility] Start: 02-26-2025 Medicare Wellness Visit Medicare Wellness Visit [facility] Start: 01-02-2025 End: 01-02-2025 Patient encounter procedure 01/02/2025 1:15 PM EST Office Visit [facility] [address] [place] [phone] BHUMIKA Lin, DPM [address] [place] [address] [facility] Start: 12-27-2024 Urine screening for protein Urine (micro)albumin/creatinine ratio - Diabetes [facility] Start: 12-19-2024 Diabetic foot examination Diabetic Foot Exam [facility] Start: 12-19-2024 Urine screening for protein Urine Microalbumin [facility] Start: 12-11-2024 End: 12-11-2024 Patient encounter procedure 12/11/2024 2:15 PM EST Office Visit [facility] [address] [place] [address] [place] [phone] Fior Forbes CNP [address] [place] [phone] [facility] Start: 12-10-2024 End: 09-09-2025 Comprehensive metabolic 2000 panel - Serum or Plasma Comprehensive Metabolic Panel Lab Routine Type 2 diabetes mellitus with stage 3b chronic kidney disease, with long-term current use of insulin (HCC) Expected: 12/10/2024, Expires: 09/09/2025 [facility] Work Phone: Comment on above: Expected: 12/10/2024, Expires: Start: 12-10-2024 End: 09-09-2025 Hemoglobin A1c/Hemoglobin.total in Blood Hemoglobin A1c Lab Routine Type 2 diabetes mellitus with stage 3b chronic kidney disease, with long-term current use of insulin (HCC) Expected: 12/10/2024, Expires: 09/09/2025 [facility] Comment on above: Expected: 12/10/2024, Expires: Start: 12-10-2024 End: 09-09-2025 Lipid 1996 panel - Serum or Plasma Lipid Panel Lab Routine Dyslipidemia Expected: 12/10/2024, Expires: 09/09/2025 [facility] Comment on above: Expected: 12/10/2024, Expires: Start: 12-10-2024 End: 09-09-2025 Microalbumin measurement, urine, quantitative Microalbumin/Creatinine Ratio, UR Random Lab Routine Type 2 diabetes mellitus with stage 3b chronic kidney disease, with long-term current use of insulin (HCC) Expected: 12/10/2024, Expires: 09/09/2025 [facility] Comment on above: Expected: 12/10/2024, Expires: Start: 12-10-2024 End: 09-09-2025 Thyrotropin [Units/volume] in Serum or Plasma TSH Lab Routine Type 2 diabetes mellitus with stage 3b chronic kidney disease, with long-term current use of insulin (HCC) Expected: 12/10/2024, Expires: 09/09/2025 [facility] Comment on above: Expected: 12/10/2024, Expires: Start: 12-10-2024 End: 09-09-2025 Thyroxine (T4) free [Mass/volume] in Serum or Plasma T4, Free Lab Routine Type 2 diabetes mellitus with stage 3b chronic kidney disease, with long-term current use of insulin (HCC) Expected: 12/10/2024, Expires: 09/09/2025 [facility] Comment on above: Expected: 12/10/2024, Expires: Start: 12-05-2024 End: 12-05-2025 Comprehensive metabolic 2000 panel - Serum or Plasma Comprehensive Metabolic Panel Lab Routine Type 2 diabetes mellitus with hyperglycemia, with long-term current use of insulin CRF (chronic renal failure), stage 3 (moderate) (Multi) Expected: 12/05/2024 (Approximate), Expires: 12/05/2025 [facility] Service Area Work Phone: Comment on above: Expected: 12/05/2024 (Approximate), Expi res: 12/05/2025 Start: 12-05-2024 End: 12-05-2025 Folate [Mass/volume] in Serum or Plasma Folate Lab Routine High serum folic acid level Expected: 12/05/2024 (Approximate), Expires: 12/05/2025 [facility] Work Phone: Comment on above: Expected: 12/05/2024 (Approximate), Expi res: 12/05/2025 Start: 12-05-2024 Hemoglobin A1c measurement A1C [facility] Start: 12-05-2024 End: 12-05-2025 Hemoglobin A1c/Hemoglobin.total in Blood Hemoglobin A1C Lab Routine Type 2 diabetes mellitus with hyperglycemia, with long-term current use of insulin Expected: 12/05/2024 (Approximate), Expires: 12/05/2025 [facility] Work Phone: Comment on above: Expected: 12/05/2024 (Approximate), Expi res: 12/05/2025 Start: 12-05-2024 End: 12-05-2025 Lipid 1996 panel - Serum or Plasma Lipid Panel Lab Routine Mixed hyperlipidemia Expected: 12/05/2024 (Approximate), Expires: 12/05/2025 [facility] Work Phone: Comment on above: Expected: 12/05/2024 (Approximate), Expi res: 12/05/2025 Start: 12-05-2024 End: 12-05-2025 Magnesium [Mass/volume] in Serum or Plasma Magnesium Lab Routine Anemia, unspecified type Expected: 12/05/2024 (Approximate), Expires: 12/05/2025 [facility] Work Phone: Comment on above: Expected: 12/05/2024 (Approximate), Expi res: 12/05/2025 Start: 12-05-2024 End: 12-05-2025 Prostate specific Ag [Mass/volume] in Serum or Plasma Prostate Specific Antigen, Screen Lab Routine Prostate cancer screening Expected: 12/05/2024 (Approximate), Expires: 12/05/2025 [facility] Work Phone: Comment on above: Expected: 12/05/2024 (Approximate), Expi res: 12/05/2025 Start: 12-05-2024 End: 12-05-2025 Zinc [Mass/volume] in Serum or Plasma Zinc Lab Routine Anemia, unspecified type Expected: 12/05/2024 (Approximate), Expires: 12/05/2025 [facility] Work Phone: Comment on above: Expected: 12/05/2024 (Approximate), Expi res: 12/05/2025 Start: 12-05-2024 End: 12-05-2024 Patient encounter procedure 12/05/2024 12:45 PM EST Office Visit [facility] [address] [place] [phone] Phyllis Mae MD [address] [place] [place] [address] [facility] Start: 11-26-2024 End: 11-26-2024 Patient encounter procedure 11/26/2024 1:15 PM EST Office Visit [facility] [address] [place] [address] [facility] Start: 11-19-2024 End: 11-19-2024 Patient encounter procedure 11/19/2024 10:15 AM EST Office Visit [facility] [address] [place] [address] [facility] Start: 11-05-2024 End: 11-05-2025 CBC W Auto Differential panel - Blood CBC and Auto Differential Lab Routine Anemia, unspecified type Expected: 11/05/2024 (Approximate), Expires: 11/05/2025 [facility] Work Phone: Comment on above: Expected: 11/05/2024 (Approximate), Expi res: 11/05/2025 Start: 11-05-2024 End: 11-05-2025 Cobalamin (Vitamin B12) [Mass/volume] in Serum or Plasma Vitamin B12 Lab Routine Anemia, unspecified type Expected: 11/05/2024 (Approximate), Expires: 11/05/2025 [facility] Work Phone: Comment on above: Expected: 11/05/2024 (Approximate), Expi res: 11/05/2025 Start: 11-05-2024 End: 11-05-2025 Comprehensive metabolic 2000 panel - Serum or Plasma Comprehensive Metabolic Panel Lab Routine Type 2 diabetes mellitus with hyperglycemia, with long-term current use of insulin Hypertension associated with type 2 diabetes mellitus (Multi) Chronic fatigue Expected: 11/05/2024 (Approximate), Expires: 11/05/2025 [facility] Service Area Work Phone: Comment on above: Expected: 11/05/2024 (Approximate), Expi res: 11/05/2025 Start: 11-05-2024 End: 11-05-2025 Ferritin [Mass/volume] in Serum or Plasma Ferritin Lab Routine Anemia, unspecified type Expected: 11/05/2024 (Approximate), Expires: 11/05/2025 [facility] Work Phone: Comment on above: Expected: 11/05/2024 (Approximate), Expi res: 11/05/2025 Start: 11-05-2024 End: 11-05-2025 Folate [Mass/volume] in Serum or Plasma Folate Lab Routine Anemia, unspecified type Expected: 11/05/2024 (Approximate), Expires: 11/05/2025 [facility] Work Phone: Comment on above: Expected: 11/05/2024 (Approximate), Expi res: 11/05/2025 Start: 11-05-2024 Hemoglobin A1c measurement Diabetes: Hemoglobin A1C [facility] Start: 11-05-2024 End: 11-05-2025 Hemoglobin A1c/Hemoglobin.total in Blood Hemoglobin A1C Lab Routine Type 2 diabetes mellitus with hyperglycemia, with long-term current use of insulin Expected: 11/05/2024 (Approximate), Expires: 11/05/2025 [facility] Work Phone: Comment on above: Expected: 11/05/2024 (Approximate), Expi res: 11/05/2025 Start: 11-05-2024 End: 11-05-2025 Iron and Iron binding capacity panel - Serum or Plasma Iron and TIBC Lab Routine Anemia, unspecified type Expected: 11/05/2024 (Approximate), Expires: 11/05/2025 [facility] Work Phone: Comment on above: Expected: 11/05/2024 (Approximate), Expi res: 11/05/2025 Start: 11-05-2024 End: 11-05-2025 Magnesium [Mass/volume] in Serum or Plasma Magnesium Lab Routine Chronic fatigue Expected: 11/05/2024 (Approximate), Expires: 11/05/2025 [facility] Work Phone: Comment on above: Expected: 11/05/2024 (Approximate), Expi res: 11/05/2025 Start: 11-05-2024 End: 11-05-2025 Methylmalonate [Moles/volume] in Serum or Plasma Methylmalonic Acid Lab Routine Anemia, unspecified type Expected: 11/05/2024 (Approximate), Expires: 11/05/2025 [facility] Work Phone: Comment on above: Expected: 11/05/2024 (Approximate), Expi res: 11/05/2025 Start: 11-05-2024 End: 11-05-2025 Microalbumin/Creatini ne [Mass Ratio] in Urine Albumin-Creatinine Ratio, Urine Random Lab Routine Type 2 diabetes mellitus with hyperglycemia, with long-term current use of insulin Expected: 11/05/2024 (Approximate), Expires: 11/05/2025 [facility] Work Phone: Comment on above: Expected: 11/05/2024 (Approximate), Expi res: 11/05/2025 Start: 11-05-2024 End: 11-05-2025 TSH with reflex to Free T4 if abnormal TSH with reflex to Free T4 if abnormal Lab Routine Chronic fatigue Expected: 11/05/2024 (Approximate), Expires: 11/05/2025 [facility] Work Phone: Comment on above: Expected: 11/05/2024 (Approximate), Expi res: 11/05/2025 Start: 11-05-2024 End: 11-05-2025 Zinc [Mass/volume] in Serum or Plasma Zinc Lab Routine Chronic fatigue Expected: 11/05/2024 (Approximate), Expires: 11/05/2025 [facility] Work Phone: Comment on above: Expected: 11/05/2024 (Approximate), Expi res: 11/05/2025 Start: 10-18-2024 Diabetic foot examination Diabetic Foot Exam [facility] Start: 10-03-2024 End: 10-03-2024 Patient encounter procedure 10/03/2024 3:40 PM EST Office Visit [facility] [address] [facility], 3rd [place] [phone] Cameron Munguia III, DO [address] [place], [place] [phone] [facility] Start: 10-03-2024 End: 10-03-2024 Patient encounter procedure [facility] Start: 09-23-2024 End: 09-23-2024 Patient encounter procedure [facility] Start: 09-16-2024 End: 09-16-2024 Patient encounter procedure [facility] Start: 09-09-2024 End: 09-09-2024 Patient encounter procedure 09/09/2024 2:30 PM EST Office Visit [facility] [address] [facility] [place] [phone] Fior Forbes, SCHEDULING SPECIALIST [address] [place] [address] [facility] Start: 09-08-2024 Urine screening for protein Urine (micro)albumin/creatinine ratio - Diabetes [facility] Start: 07-26-2024 Hemoglobin A1c measurement [facility] Start: 07-25-2024 End: 07-25-2025 CBC W Auto Differential panel - Blood CBC and Auto Differential Lab Routine Thrombocytopenia ([facility]-HCC) Fatigue, unspecified type Expected: 07/25/2024 (Approximate), Expires: 07/25/2025 [facility] Work Phone: Comment on above: Expected: 07/25/2024 (Approximate), Expi res: 07/25/2025 Start: 07-25-2024 End: 07-25-2025 Comprehensive metabolic 2000 panel - Serum or Plasma Comprehensive Metabolic Panel Lab Routine Fatigue, unspecified type CRF (chronic renal failure), stage 3 (moderate) (Multi) Type 2 diabetes mellitus with hyperglycemia, with long-term current use of insulin (Multi) Expected: 07/25/2024 (Approximate), Expires: 07/25/2025 [facility] Work Phone: Comment on above: Expected: 07/25/2024 (Approximate), Expi res: 07/25/2025 Start: 07-25-2024 End: 07-25-2025 Hemoglobin A1c/Hemoglobin.total in Blood Hemoglobin A1C Lab Routine Type 2 diabetes mellitus with hyperglycemia, with long-term current use of insulin (Multi) Expected: 07/25/2024 (Approximate), Expires: 07/25/2025 [facility] Work Phone: Comment on above: Expected: 07/25/2024 (Approximate), Expi res: 07/25/2025 Start: 07-25-2024 End: 07-25-2025 Magnesium [Mass/volume] in Serum or Plasma Magnesium Lab Routine Fatigue, unspecified type Expected: 07/25/2024 (Approximate), Expires: 07/25/2025 [facility] Work Phone: Comment on above: Expected: 07/25/2024 (Approximate), Expi res: 07/25/2025 Start: 07-25-2024 End: 07-25-2025 TSH with reflex to Free T4 if abnormal TSH with reflex to Free T4 if abnormal Lab Routine Fatigue, unspecified type Expected: 07/25/2024 (Approximate), Expires: 07/25/2025 [facility] Work Phone: Comment on above: Expected: 07/25/2024 (Approximate), Expi res: 07/25/2025 Start: 07-25-2024 End: 07-25-2025 US Liver limited US abdomen limited liver Imaging Routine Thrombocytopenia (CMS-HCC) Expected: 07/25/2024, Expires: 07/25/2025 [facility] Service Area Work Phone: Comment on above: Expected: 07/25/2024, Expires: Start: 07-25-2024 End: 07-25-2025 Zinc [Mass/volume] in Serum or Plasma Zinc Lab Routine Fatigue, unspecified type Expected: 07/25/2024 (Approximate), Expires: 07/25/2025 [facility] Work Phone: Comment on above: Expected: 07/25/2024 (Approximate), Expi res: 07/25/2025 Start: 07-11-2024 Urine screening for protein Urine Microalbumin [facility] Start: 07-09-2024 End: 07-09-2024 Patient encounter procedure 07/09/2024 2:15 PM EDT Office Visit [facility] [address] [place] [address] [facility] Start: 06-30-2024 COVID-19 Vaccine ( season) COVID-19 Vaccine ( season) [facility] Start: 06-30-2024 COVID-19 Vaccine ( season) COVID-19 Vaccine ( season) [facility] Start: 06-30-2024 Influenza vaccination Influenza Vaccine (#1) [facility] Start: 06-27-2024 End: 06-27-2024 Patient encounter procedure 06/27/2024 2:00 PM EDT Office Visit [facility] [address] [place] [phone] BHUMIKA Lin, DPMigdalia [address] [place] [address] [facility] Start: 06-08-2024 Hemoglobin A1c measurement A1C [facility] Start: 05-21-2024 End: 05-21-2024 Patient encounter procedure 05/21/2024 8:15 AM EDT Office Visit [facility] [address] [place] [phone] BHUMIKA Lin, DPM [address] [place] [address] [facility] Start: 05-14-2024 End: 05-14-2025 Wound Anaerobic Culture Wound Anaerobic Culture Microbiology Routine Ingrown toenail Paronychia of great toe PVD (peripheral vascular disease) ([facility]) Tobacco use Xerosis of skin Diabetic foot (HCC) Expected: 05/14/2024, Expires: 05/14/2025 [facility] Comment on above: Expected: 05/14/2024, Expires: Start: 03-26-2024 End: 03-26-2024 Patient encounter procedure 03/26/2024 1:30 PM EDT Office Visit [facility] [address] [place] [phone] BHUMIKA Lin, DPM [address] [place] [address] [facility] Start: 03-19-2024 End: 03-19-2024 Patient encounter procedure 03/19/2024 1:45 PM EDT Office Visit [facility] [address] [place] [address] [place] [phone] David Waters, SCHEDULING SPECIALIST [address] [place] [phone] [facility] Start: 2024 Respiratory Syncytial Virus Immunization: Risk, 60-74 Risk, or 75+ (1 - 1-dose 75+ series) Respiratory Syncytial Virus Immunization: Risk, 60-74 Risk, or 75+ (1 - 1-dose 75+ series) [facility] Start: 2024 RSV High Risk: (Elderly (60+) or Population) (1 - 1-dose 75+ series) RSV High Risk: (Elderly (60+) or Population) (1 - 1-dose 75+ series) [facility] Start: 02-28-2024 Screening for malignant neoplasm of lung Low-dose CT Lung Cancer Screen [facility] Start: 02-27-2024 End: 02-27-2024 Patient encounter procedure 02/27/2024 1:30 PM EDT Office Visit [facility] [address] [place] [phone] Phyllis Mae MD [address] [place] [address] [facility] Start: 02-21-2024 End: 02-21-2024 Patient encounter procedure 02/21/2024 3:00 PM EDT Appointment [facility] [address] [place] [address] [place] [phone] BHUMIKA Lin, DPM [address] [place] [address] [facility] Start: 02-17-2024 End: 10-18-2024 Comprehensive metabolic 2000 panel - Serum or Plasma Comprehensive Metabolic Panel Lab Routine Type 2 diabetes mellitus with stage 3b chronic kidney disease, with long-term current use of insulin (HCC) Expected: 02/17/2024, Expires: 10/18/2024 [facility] Work Phone: Comment on above: Expected: 02/17/2024, Expires: Start: 02-17-2024 End: 10-18-2024 Hemoglobin A1c/Hemoglobin.total in Blood Hemoglobin A1c Lab Routine Type 2 diabetes mellitus with stage 3b chronic kidney disease, with long-term current use of insulin (HCC) Expected: 02/17/2024, Expires: 10/18/2024 [facility] Comment on above: Expected: 02/17/2024, Expires: Start: 02-17-2024 End: 10-18-2024 Lipid 1996 panel - Serum or Plasma Lipid Panel Lab Routine Dyslipidemia Expected: 02/17/2024, Expires: 10/18/2024 [facility] Comment on above: Expected: 02/17/2024, Expires: 4 Start: 02-17-2024 End: 10-18-2024 Microalbumin measurement, urine, quantitative Microalbumin/Creatinine Ratio, UR Random Lab Routine Type 2 diabetes mellitus with stage 3b chronic kidney disease, with long-term current use of insulin (HCC) Expected: 02/17/2024, Expires: 10/18/2024 [facility] Comment on above: Expected: 02/17/2024, Expires: 4 Start: 02-17-2024 End: 10-18-2024 Thyrotropin [Units/volume] in Serum or Plasma TSH Lab Routine Type 2 diabetes mellitus with stage 3b chronic kidney disease, with long-term current use of insulin (HCC) Expected: 02/17/2024, Expires: 10/18/2024 [facility] Comment on above: Expected: 02/17/2024, Expires: Start: 02-17-2024 End: 10-18-2024 Thyroxine (T4) free [Mass/volume] in Serum or Plasma T4, Free Lab Routine Type 2 diabetes mellitus with stage 3b chronic kidney disease, with long-term current use of insulin (HCC) Expected: 02/17/2024, Expires: 10/18/2024 [facility] Comment on above: Expected: 02/17/2024, Expires: Start: 02-01-2024 Glaucoma screening [facility] Start: 01-29-2024 End: 01-29-2024 Patient encounter procedure 01/29/2024 3:00 PM EDT Appointment [facility] V[facility] [address] [facility] [place] [address] BHUMIKA Lin, DPM [address] [place] [address] [facility] Start: 01-10-2024 Hemoglobin A1c measurement [facility] Start: 12-30-2023 Medicare Annual Wellness Visit Medicare Annual Wellness Visit (AWV) [facility] Start: 12-14-2023 End: 12-14-2024 CBC W Auto Differential panel - Blood CBC and Auto Differential Lab Routine Anemia, unspecified type Expected: 12/14/2023 (Approximate), Expires: 12/14/2024 [facility] Work Phone: Comment on above: Expected: 12/14/2023 (Approximate), Expi res: 12/14/2024 Start: 12-14-2023 End: 12-14-2024 Comprehensive metabolic 2000 panel - Serum or Plasma Comprehensive Metabolic Panel Lab Routine Type 2 diabetes mellitus with other circulatory complication, with long-term current use of insulin (CMS/HCC) Expected: 12/14/2023 (Approximate), Expires: 12/14/2024 [facility] Service Area Work Phone: Comment on above: Expected: 12/14/2023 (Approximate), Expi res: 12/14/2024 Start: 12-14-2023 End: 12-14-2024 Hemoglobin A1c/Hemoglobin.total in Blood Hemoglobin A1C Lab Routine Type 2 diabetes mellitus with other circulatory complication, with long-term current use of insulin (CMS/HCC) Expected: 12/14/2023 (Approximate), Expires: 12/14/2024 [facility] Work Phone: Comment on above: Expected: 12/14/2023 (Approximate), Expi res: 12/14/2024 Start: 12-14-2023 End: 12-14-2024 Lipid 1996 panel - Serum or Plasma Lipid Panel Lab Routine Hypertriglyceridemia Expected: 12/14/2023 (Approximate), Expires: 12/14/2024 [facility] Work Phone: Comment on above: Expected: 12/14/2023 (Approximate), Expi res: 12/14/2024 Start: 12-14-2023 End: 12-14-2024 Prostate specific Ag [Mass/volume] in Serum or Plasma Prostate Specific Antigen, Screen Lab Routine Screening for prostate cancer Expected: 12/14/2023 (Approximate), Expires: 12/14/2024 [facility] Work Phone: Comment on above: Expected: 12/14/2023 (Approximate), Expi res: 12/14/2024 Start: 12-01-2023 Diabetic foot examination [facility] Start: 12-01-2023 Urine screening for protein Urine Microalbumin [facility] Start: 11-12-2023 Fasting lipid profile LIPID SCREENING [facility] Work Phone: Start: 10-30-2023 Screening for malignant neoplasm of colon [facility] Start: 10-18-2023 End: 10-18-2023 Patient encounter procedure 10/18/2023 1:00 PM EST Office Visit [facility] Endocrinology Physicians [address] [facility] [place] [phone] Fior Forbes CNP [address] [place] [address] [facility] Endocr[facility]ology Physicians Start: 10-11-2023 End: 10-11-2023 Patient encounter procedure 10/11/2023 1:00 PM EST Office Visit [facility] Neurological Physicians [address] [place] [address] Office [facility], 2nd [place] [address] Deshaun Rodrigues MD [address] [address] [facility] Neu[facility] Start: 10-09-2023 Hemoglobin A1c measurement [facility] Start: 07-19-2023 End: 07-19-2023 Patient encounter procedure 07/19/2023 3:20 PM EDT Office Visit [facility] Heart [facility] Vascular [facility] [address] [facility] [place] [address] Aquiles Bay MD [address] [place] [address] [facility] Start: 06-30-2023 COVID-19 Vaccine ( season) COVID-19 Vaccine ( season) [facility] Start: 06-30-2023 Influenza vaccination Sequential Influenza Vaccine (#1) [facility] Start: 06-16-2023 End: 06-16-2023 Patient encounter procedure 06/16/2023 2:15 PM EDT Office Visit [facility] Endocrinology Physicians [address] [facility] [place] [phone] Fior Forbes CNP [address] [place] [address] [facility] Endocrinology Physicians Start: 06-10-2023 Diabetic foot examination Foot Exam [facility] Start: 04-21-2023 End: 04-21-2023 Patient encounter procedure 04/21/2023 11:30 AM EDT Office Visit [facility] Endocrinology Physicians [address] [facility] [place] [phone] Santana Orosco PA-C [address] [place] [address] [facility] Endocrinology Physicians Start: 04-05-2023 End: 04-05-2023 Patient encounter procedure 04/05/2023 2:30 PM EDT Office Visit [facility] Neurological Physicians [address] [facility] Office [facility], 2nd [place] [address] Deshaun Rodrigues MD [address] [facility] 2nd [place] [address] [facility] Neurological Physicians Start: 03-07-2023 End: 03-07-2024 CBC W Auto Differential panel - Blood CBC and Auto Differential Lab Routine Other fatigue Expected: 03/07/2023 (Approximate), Expires: 03/07/2024 [facility] Work Phone: Comment on above: Expected: 03/07/2023 (Approximate), Expi res: 03/07/2024 Start: 03-07-2023 End: 03-07-2024 Cobalamin (Vitamin B12) [Mass/volume] in Serum or Plasma Vitamin B12 Lab Routine Other fatigue Expected: 03/07/2023 (Approximate), Expires: 03/07/2024 [facility] Work Phone: Comment on above: Expected: 03/07/2023 (Approximate), Expi res: 03/07/2024 Start: 03-07-2023 End: 03-07-2024 Comprehensive metabolic 2000 panel - Serum or Plasma Comprehensive Metabolic Panel Lab Routine Hypertension associated with type 2 diabetes mellitus (CMS/HCC) Type 2 diabetes mellitus without complication, with long-term current use of insulin (CMS/HCC) Expected: 03/07/2023 (Approximate), Expires: 03/07/2024 [facility] Service Area Work Phone: Comment on above: Expected: 03/07/2023 (Approximate), Expi res: 03/07/2024 Start: 03-07-2023 End: 03-07-2024 Folate [Mass/volume] in Serum or Plasma Folate Lab Routine Other fatigue Expected: 03/07/2023 (Approximate), Expires: 03/07/2024 [facility] Work Phone: Comment on above: Expected: 03/07/2023 (Approximate), Expi res: 03/07/2024 Start: 03-07-2023 End: 03-07-2024 Hemoglobin A1c/Hemoglobin.total in Blood Hemoglobin A1C Lab Routine Type 2 diabetes mellitus without complication, with long-term current use of insulin (CMS/[facility]) Expected: 03/07/2023 (Approximate), Expires: 03/07/2024 [facility] Work Phone: Comment on above: Expected: 03/07/2023 (Approximate), Expi res: 03/07/2024 Start: 03-07-2023 End: 03-07-2024 Magnesium [Mass/volume] in Serum or Plasma Magnesium Lab Routine Other fatigue Expected: 03/07/2023 (Approximate), Expires: 03/07/2024 [facility] Work Phone: Comment on above: Expected: 03/07/2023 (Approximate), Expi res: 03/07/2024 Start: 03-07-2023 End: 03-07-2024 Methylmalonate [Moles/volume] in Serum or Plasma Methylmalonic Acid Lab Routine Other fatigue Expected: 03/07/2023 (Approximate), Expires: 03/07/2024 [facility] Work Phone: Comment on above: Expected: 03/07/2023 (Approximate), Expi res: 03/07/2024 Start: 03-07-2023 End: 03-07-2024 Prostate specific Ag [Mass/volume] in Serum or Plasma Prostate Specific Antigen, Screen Lab Routine Screening for prostate cancer Expected: 03/07/2023 (Approximate), Expires: 03/07/2024 [facility] Work Phone: Comment on above: Expected: 03/07/2023 (Approximate), Expi res: 03/07/2024 Start: 01-11-2023 Prostate specific antigen measurement PSA Level [facility] Start: 01-10-2023 Diabetic foot examination Foot Exam [facility] Start: 01-02-2023 Hemoglobin A1c measurement A1C [facility] Start: 12-22-2022 Hemoglobin A1c measurement A1C [facility] Start: 12-20-2022 FUV, Provider: Phyllis Mae, Status: Pen, Time: 1:00 PM FUV, Provider: Phyllis Mae, Status: Pen, Time: 1:00 PM [facility] Work Phone: Start: 12-20-2022 Patient encounter procedure [facility] Medicine [place] Start: 12-14-2022 Microalbumin measurement, urine, quantitative Urine Microalbumin [facility] Start: 12-14-2022 Urine screening for protein Urine Microalbumin [facility] Start: 12-07-2022 End: 12-07-2022 Patient encounter procedure 12/07/2022 Office Visit Neurology Deshaun Rodrigues MD [facility] [address] [address] [facility] Neurological Physicians Start: 12-05-2022 End: 12-05-2022 Patient encounter procedure 12/05/2022 Office Visit Cardiology Aquiles Bay MD [address] [address] [facility] Start: 12-01-2022 End: 12-01-2022 Patient encounter procedure 12/01/2022 Office Visit Endocrinology David Waters, SCHEDULING SPECIALIST [address] [facility] [place] [address] [facility] End[facility]ology [facility] Start: 11-23-2022 End: 11-23-2022 Patient encounter procedure 11/23/2022 Office Visit Wound Care Maureen Brown MD 335 [facility] [address] [place] [address] [facility] Start: 11-12-2022 Hemoglobin A1c measurement A1C [facility] Start: 11-01-2022 FUV, Provider: Phyllis Mae, Status: Pen, Time: 12:45 PM FUV, Provider: Phyllis Mae, Status: Pen, Time: 12:45 PM [facility] Work Phone: Start: 10-11-2022 End: 10-11-2022 Patient encounter procedure 10/11/2022 Office Visit Endocrinology David Waters, RAQUEL [address] [place] [address] [facility] Endocrinology Physicians Start: 10-10-2022 End: 06-10-2023 Complete blood count with white cell differential, manual CBC and Differential Lab Routine Type 2 diabetes mellitus with stage 3b chronic kidney disease, with long-term current use of insulin (HCC) Expected: 10/10/2022 (Approximate), Expires: 06/10/2023 [facility] Comment on above: Expected: 10/10/2022 (Approximate), Expi res: 06/10/2023 Start: 10-10-2022 End: 06-10-2023 Comprehensive metabolic 2000 panel - Serum or Plasma Comprehensive Metabolic Panel Lab Routine Type 2 diabetes mellitus with stage 3b chronic kidney disease, with long-term current use of insulin (HCC) Expected: 10/10/2022 (Approximate), Expires: 06/10/2023 [facility] Comment on above: Expected: 10/10/2022 (Approximate), Expi res: 06/10/2023 Start: 10-10-2022 End: 06-10-2023 Hemoglobin A1c/Hemoglobin.total in Blood Hemoglobin A1c Lab Routine Type 2 diabetes mellitus with stage 3b chronic kidney disease, with long-term current use of insulin (HCC) Expected: 10/10/2022 (Approximate), Expires: 06/10/2023 [facility] Work Phone: Comment on above: Expected: 10/10/2022 (Approximate), Expi res: 06/10/2023 Start: 10-10-2022 End: 06-10-2023 Lipid 1996 panel - Serum or Plasma Lipid Panel Lab Routine Type 2 diabetes mellitus with stage 3b chronic kidney disease, with long-term current use of insulin (HCC) Expected: 10/10/2022 (Approximate), Expires: 06/10/2023 [facility] Comment on above: Expected: 10/10/2022 (Approximate), Expi res: 06/10/2023 Start: 10-10-2022 End: 06-10-2023 Thyrotropin [Units/volume] in Serum or Plasma TSH Lab Routine Type 2 diabetes mellitus with stage 3b chronic kidney disease, with long-term current use of insulin (HCC) Expected: 10/10/2022 (Approximate), Expires: 06/10/2023 [facility] Comment on above: Expected: 10/10/2022 (Approximate), Expi res: 06/10/2023 Start: 10-10-2022 End: 06-10-2023 Thyroxine (T4) free [Mass/volume] in Serum or Plasma T4, Free Lab Routine Type 2 diabetes mellitus with stage 3b chronic kidney disease, with long-term current use of insulin (HCC) Expected: 10/10/2022 (Approximate), Expires: 06/10/2023 [facility] Comment on above: Expected: 10/10/2022 (Approximate), Expi res: 06/10/2023 Start: 10-04-2022 End: 10-04-2022 Patient encounter procedure 10/04/2022 Appointment Cardiology Aquiles Bay MD [address] [place] [id number] [facility] Start: 09-29-2022 Lipid panel Lipid Panel [facility] Start: 08-15-2022 End: 08-15-2022 Patient encounter procedure 08/15/2022 Appointment Cardiology Aquiles Bay MD [address] [address] [facility] Start: 08-03-2022 Diabetic foot examination Foot Exam [facility] Start: 07-29-2022 End: 07-29-2022 Patient encounter procedure 07/29/2022 Appointment Cardiology Aquiles Bay MD [address] [address] [facility] Start: 07-28-2022 Prostate specific antigen measurement PSA Level [facility] Start: 07-05-2022 FUV, Provider: Phyllis Mae, Status: Pen, Time: 1:45 PM FUV, Provider: Phyllis Mae, Status: Pen, Time: 1:45 PM [facility] Work [facility]: Start: 06-30-2022 Influenza vaccination Sequential Influenza Vaccine (#1) [facility] Start: 06-28-2022 FUV, Provider: Phyllis Mae, Status: Pen, Time: 11:30 AM FUV, Provider: Phyllis Mae, Status: Pen, Time: 11:30 AM [facility] Work Phone: Start: 06-16-2022 End: 06-16-2022 Patient encounter procedure 06/16/2022 Office Visit Neurology Deshaun Rodrigues MD [address] [address] [facility] Neurological Physicians Start: 06-13-2022 Hemoglobin A1c measurement A1C [facility] Start: 06-10-2022 End: 06-10-2022 Patient encounter procedure 06/10/2022 Office Visit Endocrinology Erica Gardner PA-C [address] [place] [address] [facility] Endocrinology Physicians Start: 05-17-2022 End: 05-17-2022 Patient encounter procedure 05/17/2022 Office Visit Endocrinology Waters, David Guerinmariama, SCHEDULING SPECIALIST [address] [place] [address] [facility] Endocr[facility]ology Physicians Start: 05-13-2022 [email or web address], Provider: Quin Li, Status: Pen, Time: 11:45 AM PTFUADULT4, Provider: Quin Li, Status: Pen, Time: 11:45 AM [facility] [place] [address] [place] Work Phone: Start: 05-11-2022 PTRECHECKA, Provider: Lorena Ochoa, Status: Pen, Time: 11:15 AM PTRECHECKA, Provider: Lorena Ochoa, Status: Pen, Time: 11:15 AM [facility] [place] [address] [place] Work Phone: Start: 05-09-2022 PTFUADULT4, Provider: Quin Li, Status: Pen, Time: 12:15 PM PTFUADULT4, Provider: Quin Li, Status: Pen, Time: 12:15 PM [facility] [place] [address] [place] Work Phone: Start: 05-06-2022 PTFUADULT4, Provider: Quin Li, Status: Pen, Time: 2:00 PM PTFUADULT4, Provider: Quin Li, Status: Pen, Time: 2:00 PM [facility] [place] [address] [place] Work Phone: Start: 05-04-2022 PTFUADULT4, Provider: Quin Li, Status: Pen, Time: 2:00 PM PTFUADULT4, Provider: Quin Li, Status: Pen, Time: 2:00 PM [facility] [place] [address] [place] Work Phone: Start: 04-29-2022 PTFUADULT4, Provider: Quin Li, Status: Pen, Time: 2:00 PM PTFUADULT4, Provider: Quin Li, Status: Pen, Time: 2:00 PM [facility] [address] Work Phone: Start: 04-27-2022 Depression screening using PHQ-9 (Patient Health Questionnaire 9) score [facility] Start: 04-25-2022 End: 04-25-2022 Patient encounter procedure 04/25/2022 Office Visit Cardiology Aquiles Bay MD [address] [address] [facility] Start: 04-25-2022 [email or web address], Provider: Quin Li, Status: Pen, Time: 11:30 AM PTFUADULT4, Provider: Quin Li, Status: Pen, Time: 11:30 AM [facility] [address] Work Phone: Start: 04-22-2022 PTFUADULT4, Provider: Quin Li, Status: Pen, Time: 1:15 PM PTFUADULT4, Provider: Quin Li, Status: Pen, Time: 1:15 PM [facility] [address] Work Phone: Start: 04-06-2022 Microalbumin measurement, urine, quantitative Urine Microalbumin [facility] Start: 04-06-2022 PTEVALADUL, Provider: Lorena Ochoa, Status: Pen, Time: 9:30 AM PTEVALADUL, Provider: Lorena Ochoa, Status: Pen, Time: 9:30 AM [facility] Work Phone: Start: 03-16-2022 Microalbumin measurement, urine, quantitative Urine Microalbumin [facility] Start: 03-15-2022 PTEVALADUL, Provider: Rayo Herrera, Status: Pen, Time: 11:30 AM PTEVALADUL, Provider: Rayo Herrera, Status: Pen, Time: 11:30 AM [facility] Work Phone: Start: 03-12-2022 Pneumococcal vaccination [facility] Start: 03-12-2022 Pneumococcal Vaccine: 65+ Years (2 - PCV) Pneumococcal Vaccine: 65+ Years (2 - PCV) [facility] Start: 03-12-2022 Pneumococcal Vaccine: 65+ Years (2 of 2 - PCV) Pneumococcal Vaccine: 65+ Years (2 of 2 - PCV) [facility] Start: 03-12-2022 Pneumococcal Vaccine: Age 50+ (2 of 2 - PCV) Pneumococcal Vaccine: Age 50+ (2 of 2 - PCV) [facility] Start: 03-12-2022 Pneumococcal Vaccine: Age 65+ (2 - PCV) Pneumococcal Vaccine: Age 65+ (2 - PCV) [facility] Start: 03-12-2022 Pneumococcal Vaccine: Age 65+ (2 of 2 - PCV) Pneumococcal Vaccine: Age 65+ (2 of 2 - PCV) [facility] Start: 03-12-2022 Pneumococcal Vaccine: Age 65+ (2 of 2 - PCV13) Pneumococcal Vaccine: Age 65+ (2 of 2 - PCV13) [facility] Start: 02-01-2022 Hemoglobin A1c measurement A1C [facility] Start: 01-25-2022 FUV, Provider: Phyllis Mae, [...] Vaccine (3 - Booster for Ryan series) [facility] Start: 11-03-2021 PTRECHADUL, Provider: Lorena Ochoa, Status: Pen, Time: 12:30 PM PTRECHADUL, Provider: Lorena Ochoa, Status: Pen, Time: 12:30 PM [facility] [address] [place] Work Phone: Start: 11-01-2021 End: 11-01-2021 Patient encounter procedure 11/01/2021 Office Visit Endocrinology Santana Orosco PA-C [address] [place], [place] [phone] [facility] Endocrinology Physicians Start: 10-28-2021 End: 08-04-2022 Complete blood count with white cell differential, manual CBC and Differential Lab Routine Type 2 diabetes mellitus with stage 3b chronic kidney disease, with long-term current use of insulin (HCC) Expected: 10/28/2021, Expires: 08/04/2022 [facility] Comment on above: Expected: 10/28/2021, Expires: 2 Start: 10-28-2021 End: 08-04-2022 Comprehensive metabolic 2000 panel - Serum or Plasma Comprehensive Metabolic Panel Lab Routine Type 2 diabetes mellitus with stage 3b chronic kidney disease, with long-term current use of insulin (HCC) Expected: 10/28/2021, Expires: 08/04/2022 [facility] Work Phone: Comment on above: Expected: 10/28/2021, Expires: 2 Start: 10-28-2021 Hemoglobin A1c measurement A1C [facility] Start: 10-28-2021 End: 08-04-2022 Hemoglobin A1c/Hemoglobin.total in Blood Hemoglobin A1c Lab Routine Type 2 diabetes mellitus with stage 3b chronic kidney disease, with long-term current use of insulin (HCC) Expected: 10/28/2021, Expires: 08/04/2022 [facility] Comment on above: Expected: 10/28/2021, Expires: 2 Start: 10-28-2021 End: 08-04-2022 Lipid 1996 panel - Serum or Plasma Lipid Panel Lab Routine Type 2 diabetes mellitus with stage 3b chronic kidney disease, with long-term current use of insulin (HCC) Expected: 10/28/2021, Expires: 08/04/2022 [facility] Comment on above: Expected: 10/28/2021, Expires: 2 Start: 10-28-2021 End: 08-03-2022 Microalbumin measurement, urine, quantitative Microalbumin/Creatinine Ratio, UR Random Lab Routine Type 2 diabetes mellitus with stage 3b chronic kidney disease, with long-term current use of insulin (HCC) Expected: 10/28/2021, Expires: 08/03/2022 [facility] Comment on above: Expected: 10/28/2021, Expires: 2 Start: 10-28-2021 End: 08-04-2022 Thyrotropin [Units/volume] in Serum or Plasma TSH Lab Routine Type 2 diabetes mellitus with stage 3b chronic kidney disease, with long-term current use of insulin (HCC) Expected: 10/28/2021, Expires: 08/04/2022 [facility] Comment on above: Expected: 10/28/2021, Expires: 2 Start: 10-28-2021 End: 08-04-2022 Thyroxine (T4) free [Mass/volume] in Serum or Plasma T4, Free Lab Routine Type 2 diabetes mellitus with stage 3b chronic kidney disease, with long-term current use of insulin (HCC) Expected: 10/28/2021, Expires: 08/04/2022 [facility] Comment on above: Expected: 10/28/2021, Expires: 2 Start: 10-26-2021 COVID-19 Vaccine (3 - Booster for Ryan series) COVID-19 Vaccine (3 - Booster for Ryan series) [facility] Start: 10-25-2021 [email or web address], Provider: Bib Payne, Status: Pen, Time: 11:30 AM PTFUADULT4, Provider: Bib Payne, Status: Pen, Time: 11:30 AM [facility] [address] Work Phone: Start: 10-18-2021 PTFUADULT4, Provider: Bib Payne, Status: Pen, Time: 11:30 AM PTFUADULT4, Provider: Bib Payne, Status: Pen, Time: 11:[address] Work Phone: Start: 10-15-2021 PTFUADULT4, Provider: Bib Payne, Status: Pen, Time: 1:15 PM PTFUADULT4, Provider: Bib Payne, Status: Pen, Time: 1:15 PM [place] [place] [address] [place] Work Phone: Start: 10-08-2021 PTFUADULT4, Provider: Bib Payne, Status: Pen, Time: 12:30 PM PTFUADULT4, Provider: Bib Payne, Status: Pen, Time: 12:30 PM [facility] [place] [address] [place] Work Phone: Start: 10-04-2021 FUV, Provider: Phyllis Mae, Status: Pen, Time: 11:30 AM FUV, Provider: Phyllis Mae, Status: Pen, Time: 11:30 AM [facility] [place] [address] [place] Work Phone: Start: 09-29-2021 PTRECHECKA, Provider: Kirstie Bernal, Status: Pen, Time: 11:15 AM PTRECHECKA, Provider: Kirstie Bernal, Status: Pen, Time: 11:15 AM [facility] [place] [address] [place] Work Phone: Start: 09-27-2021 End: 09-27-2021 Patient encounter procedure 09/27/2021 Office Visit Pulmonology Tosha Prescott, SCHEDULING SPECIALIST [address] [facility] [address] Pantoja [place], [facility]06 [facility] Pul[facility] Physicians Start: 09-24-2021 PTFUADULT4, Provider: Bib Payne, Status: Pen, Time: 12:30 PM PTFUADULT4, Provider: Bib Payne, Status: Pen, Time: 12:30 [facility] [place] Work Phone: Start: 09-22-2021 PTFUADULT4, Provider: Bib Payne, Status: Pen, Time: 12:30 PM PTFUADULT4, Provider: Bib Payne, Status: Pen, Time: 12:30 [facility] [place] Work Phone: Start: 09-20-2021 PTFUADULT4, Provider: Bib Payne, Status: Pen, Time: 12:15 PM PTFUADULT4, Provider: Bib Payne, Status: Pen, Time: 12:15 PM [facility] [place] Work Phone: Start: 09-17-2021 PTFUADULT4, Provider: Bib Payne, Status: Pen, Time: 12:30 PM PTFUADULT4, Provider: Bib Payne, Status: Pen, Time: 12:30 PM [facility] [place] Work Phone: Start: 09-16-2021 Hemoglobin A1c measurement [address] Start: 09-15-2021 PTFUADULT4, Provider: Bib Payne, Status: Pen, Time: 1:15 PM PTFUADULT4, Provider: Bib Payne, Status: Pen, Time: 1:15 PM [facility] [place] Work Phone: Start: 09-14-2021 FUV, Provider: Phyllis Mae, Status: Pen, Time: 1:15 PM FUV, Provider: Phyllis Mae, Status: Pen, Time: 1:15 PM [facility] Work Phone: Start: 09-13-2021 PTFUADULT4, Provider: Bib Payne, Status: Pen, Time: 12:15 PM PTFUADULT4, Provider: Bib Payne, Status: Pen, Time: 12:15 PM [facility] [place] Work Phone: Start: 09-10-2021 PTFUADULT4, Provider: Bib Payne, Status: Pen, Time: 12:30 PM PTFUADULT4, Provider: Bib Payne, Status: Pen, Time: 12:30 PM [facility] [place] Work Phone: Start: 09-08-2021 PTFUADULT4, Provider: Bib Payne, Status: Pen, Time: 1:15 PM PTFUADULT4, Provider: Bib Payne, Status: Pen, Time: 1:15 PM [facility] Work Phone: Start: 09-06-2021 PTFUADULT4, Provider: Bib Payne, Status: Pen, Time: 12:15 PM PTFUADULT4, Provider: Bib Payne, Status: Pen, Time: 12:15 PM [facility] Work Phone: Start: 09-03-2021 PTFUADULT4, Provider: Bib Payne, Status: Pen, Time: 12:30 PM PTFUADULT4, Provider: Bib Payne, Status: Pen, Time: 12:30 PM [facility] Work Phone: Start: 09-01-2021 PTFUADULT4, Provider: Bib Payne, Status: Pen, Time: 12:30 PM PTFUADULT4, Provider: Bib Payne, Status: Pen, Time: 12:30 PM [facility] Work Phone: Start: 08-30-2021 PTFUADULT4, Provider: Bib Payne, Status: Pen, Time: 12:15 PM PTFUADULT4, Provider: Bib Payne, Status: Pen, Time: 12:15 PM [facility] Work Phone: Start: 08-27-2021 PTFUADULT4, Provider: Bib Payne, Status: Pen, Time: 10:45 AM PTFUADULT4, Provider: Bib Payne, Status: Pen, Time: 10:45 AM [facility] Work Phone: Start: 08-25-2021 PTFUADULT4, Provider: Bib Payne, Status: Pen, Time: 12:30 PM PTFUADULT4, Provider: Bib Payne, Status: Pen, Time: 12:30 [facility] Start: 08-23-2021 PTFUADULT4, Provider: Bib Payne, Status: Pen, Time: 12:00 PM PTFUADULT4, Provider: Bib Payne, Status: Pen, Time: 12:00 PM [facility] Work Phone: Start: 08-20-2021 PTFUADULT4, Provider: Bib Payne, Status: Pen, Time: 10:00 AM PTFUADULT4, Provider: Bib Payne, Status: Pen, Time: 10:00 AM [facility] Work Phone: Start: 08-17-2021 EPV, Provider: Phyllis Mae, Status: Pen, Time: 12:30 PM EPV, Provider: Phyllis Mae, Status: Pen, Time: 12:30 PM [facility] Work Phone: Start: 08-16-2021 PTFUADULT4, Provider: Bib Payne, Status: Pen, Time: 12:15 PM PTFUADULT4, Provider: Bib Payne, Status: Pen, Time: 12:15 PM [facility] Work Phone: Start: 08-04-2021 PTEVALADUL, Provider: Arturo Galvez, Status: Pen, Time: 1:15 PM PTEVALADUL, Provider: Arturo Galvez, Status: Pen, Time: 1:15 PM [facility] Work Phone: Start: 08-03-2021 Diabetic foot examination Foot Exam [facility] Start: 07-28-2021 Albumin DL <= 20 mg/L (U) [Mass/Vol] Urine Microalbumin [facility] Start: 07-28-2021 Microalbumin measurement, urine, quantitative Urine Microalbumin [facility] Start: 07-14-2021 HbA1c (Bld) [Mass fraction] A1C [facility] Start: 07-14-2021 Hemoglobin A1c measurement A1C [facility] Start: 07-12-2021 FUV, Provider: Phyllis Mae, Status: Pen, Time: 11:30 AM FUV, Provider: Phyllis Mae, Status: Pen, Time: 11:30 AM [facility] Work Phone: Start: 07-06-2021 FUV, Provider: Phyllis Mae, Status: Pen, Time: 2:00 PM FUV, Provider: Phyllis Mae, Status: Pen, Time: 2:00 PM [facility] Work Phone: Start: 07-01-2021 End: 07-01-2021 Follow-up encounter 07/01/2021 Follow-Up Sports Medicine Dylon Galindo MD [address] [place] [address] [facility] Start: 06-30-2021 Influenza vaccination Sequential Influenza Vaccine (#1) [facility] Start: 06-24-2021 NPV, Provider: Anya Greenwood, Status: Pen, Time: 11:00 AM NPV, Provider: Anya Greenwood, Status: Pen, Time: 11:00 AM [facility] Work Phone: Start: 06-17-2021 FUV, Provider: Jin Robbins II, Status: Pen, Time: 11:00 AM FUV, Provider: Jin Robbins II, Status: Pen, Time: 11:00 AM [facility] Work Phone: Start: 05-25-2021 Low dose computed tomography of chest without contrast Low-dose CT Lung Cancer Screen [facility] Start: 05-25-2021 Screening for malignant neoplasm of lung Low-dose CT Lung Cancer Screen [facility] Start: 05-13-2021 End: 05-13-2021 Follow-up encounter 05/13/2021 Follow-Up Sports Medicine Dylon Galindo MD [address] [place] [address] [phone] [facility] Start: 04-19-2021 NPV, Provider: Jin Robbins II, Status: Pen, Time: 2:45 PM NPV, Provider: Jin Robbins II, Status: Giacomo, Time: 2:45 PM [facility] Work Phone: Start: 04-19-2021 HbA1c (Bld) [Mass fraction] A1C [facility] Start: 04-14-2021 Screening for malignant neoplasm of lung Low-dose CT Lung Cancer Screen [facility] Start: 03-24-2021 End: 03-24-2021 Patient encounter procedure 03/24/2021 Office Visit Sports Medicine Dylon Galindo MD [address] [place] [address] [phone] [facility] Start: 02-02-2021 End: 02-02-2021 Office Visit 02/02/2021 Office Visit Endocrinology Erica Gardner PA-C [address] [place] [phone] [facility] End[facility] Start: 01-29-2021 COVID-19 Vaccine (Ryan SARS-CoV-2 Vaccination) COVID-19 Vaccine (Ryan SARS-CoV-2 Vaccination) [facility] Start: 01-25-2021 HbA1c (Bld) [Mass fraction] A1C [facility] Start: 12-27-2020 Diabetic foot examination Foot Exam [facility] Start: 12-11-2020 Albumin DL <= 20 mg/L (U) [Mass/Vol] URINE MICROALBUMIN [facility] Start: 12-08-2020 End: 12-08-2020 Appointment [facility] Start: 11-03-2020 End: 08-03-2021 Comprehensive metabolic 2000 panel Comprehensive Metabolic Panel Lab Routine Inadequately controlled diabetes mellitus (HCC) Expected: 11/03/2020 (Approximate), Expires: 08/03/2021 [facility] Comment on above: Expected: 11/03/2020 (Approximate), Expi res: 08/03/2021 Start: 11-03-2020 End: 08-03-2021 HbA1c (Bld) [Mass fraction] Hemoglobin A1c Lab Routine Inadequately controlled diabetes mellitus (HCC) Expected: 11/03/2020 (Approximate), Expires: 08/03/2021 [facility] Comment on above: Expected: 11/03/2020 (Approximate), Expi res: 08/03/2021 Start: 11-03-2020 End: 08-03-2021 Lipid 1996 panel Lipid Panel Lab Routine Inadequately controlled diabetes mellitus (HCC) Dyslipidemia Expected: 11/03/2020 (Approximate), Expires: 08/03/2021 [facility] Comment on above: Expected: 11/03/2020 (Approximate), Expi res: 08/03/2021 Start: 11-03-2020 End: 11-03-2020 Office Visit 11/03/2020 Office Visit Endocrinology David Waters, SCHEDULING SPECIALIST [address] [address] [phone] [facility] Endocrinology Physicians Start: 10-01-2020 HbA1c (Bld) [Mass fraction] A1C [facility] Start: 07-03-2020 End: 07-03-2020 Office Visit 07/03/2020 Office Visit Endocrinology Erica Gardner PA-C [address] [address] [phone] [facility] End[facility] Start: 06-30-2020 Influenza vaccination given [facility] Start: 06-10-2020 HbA1c (Bld) [Mass fraction] A1C [facility] Start: 05-25-2020 End: 05-25-2020 Appointment 05/25/2020 Appointment Radiology Lola Barksdale MD [facility] Yonatan Fernandez [address] [place] [address] [phone] [facility] CT Scan Start: 05-19-2020 Xray Chest 2 View PA + Lateral [facility] Work Phone: Start: 04-20-2020 End: 04-20-2020 Office Visit 04/20/2020 Office Visit Cardiology Aquiles Bay MD [address] [address] [phone] [facility] Start: 03-31-2020 End: 03-31-2020 Office Visit 03/31/2020 Office Visit Endocrinology David Waters, RAQUEL [address] [address] [phone] [facility] Start: 02-26-2020 End: 02-26-2020 Office Visit 02/26/2020 Office Visit Cardiology Aquiles Bay MD [address] [address] [phone] [facility] Start: 01-23-2020 End: 01-23-2020 Low dose computed tomography of thorax CT Lung Cancer Screening Routine Cigarette Smoker Screening for malignant neoplasm of respiratory organ Expected: 01/23/2020, Expires: 01/23/2020 [facility] Comment on above: Expected: 01/23/2020, Expires: 0 Start: 01-23-2020 End: 01-23-2020 Office Visit 01/23/2020 Office Visit Pulmonology Lola Barksdale MD [address] [place] [address] [phone] [facility] Start: 01-22-2020 Screening for malignant neoplasm of lung Low-dose CT Lung Cancer Screen [facility] Start: 01-20-2020 End: 01-20-2020 Appointment 01/20/2020 Appointment Radiology Lola Barksdale MD [address] [place] [address] [phone] [facility] CT Scan Start: 12-27-2019 End: 12-27-2019 Office Visit 12/27/2019 Office Visit Endocrinology David Waters, RAQUEL [address] [address] [phone] [facility] End[facility]ology [facility] Start: 12-04-2019 End: 12-04-2019 Appointment [facility] Start: 12-03-2019 End: 12-03-2019 Appointment [facility] Start: 11-12-2019 Prostate specific antigen measurement PROSTATE CANCER SCREENING DISCUSSION [facility] Work Phone: Start: 07-25-2019 End: 07-25-2019 Office Visit 07/25/2019 Office Visit Pulmonology Lola Barksdale MD [address] [place] [address] [place] [address] [facility] Start: 07-02-2019 Albumin DL <= 20 mg/L (U) [Mass/Vol] URINE MICROALBUMIN [facility] Start: 06-30-2019 Influenza vaccination given SEQUENTIAL INFLUENZA VACCINE (#1) [facility] Start: 05-27-2019 End: 01-26-2020 Complete blood count with white cell differential, manual CBC and Differential Routine Anemia, unspecified type Monoclonal gammopathy Expected: 05/27/2019 (Approximate), Expires: 01/26/2020 [facility] Comment on above: Expected: 05/27/2019 (Approximate), Expi res: 01/26/2020 Start: 05-27-2019 End: 01-25-2020 Reticulocytes panel - Blood Reticulocyte Routine Anemia, unspecified type Monoclonal gammopathy Expected: 05/27/2019 (Approximate), Expires: 01/25/2020 [facility] Comment on above: Expected: 05/27/2019 (Approximate), Expi res: 01/25/2020 Start: 05-27-2019 End: 05-27-2019 Office Visit 05/27/2019 Office Visit Oncology Guillermo Branham MD [facility] [place] [address] [phone] [facility] Cancer Physicians Start: 05-12-2019 Hemoglobin A1c/Hemoglobin.total mass fraction (Bld) [facility] Start: 04-25-2019 Albumin DL <= 20 mg/L mass conc (U) URINE MICROALBUMIN [facility] Start: 01-26-2019 End: 09-29-2019 Cobalamin (Vitamin B12) mass conc Vitamin B12 Routine Anemia, unspecified type Monoclonal gammopathy Fatigue, unspecified type Expected: 01/26/2019 (Approximate), Expires: 09/29/2019 [facility] Comment on above: Expected: 01/26/2019 (Approximate), Expi res: 09/29/2019 Start: 01-26-2019 End: 09-29-2019 Complete blood count with white cell differential, manual CBC and Differential Routine Anemia, unspecified type Monoclonal gammopathy Fatigue, unspecified type Expected: 01/26/2019 (Approximate), Expires: 09/29/2019 [facility] Comment on above: Expected: 01/26/2019 (Approximate), Expi res: 09/29/2019 Start: 01-26-2019 End: 09-28-2019 Reticulocytes panel - Blood Reticulocyte Routine Anemia, unspecified type Monoclonal gammopathy Fatigue, unspecified type Expected: 01/26/2019 (Approximate), Expires: 09/28/2019 [facility] Comment on above: Expected: 01/26/2019 (Approximate), Expi res: 09/28/2019 Start: 01-26-2019 End: 09-29-2019 Thyrotropin Qn TSH Routine Anemia, unspecif ied type Monoclonal gammopathy Fatigue, unspecified type Expected: 01/26/2019 (Approximate), Expires: 09/29/2019 [facility] Comment on above: Expected: 01/26/2019 (Approximate), Expi res: 09/29/2019 Start: 01-25-2019 End: 01-25-2019 Ambulatory 01/25/2019 Office Visit Oncology Guillermo Branham MD [facility] [place] [address] [facility] Cancer Phys[facility] Start: 01-22-2019 End: 01-22-2019 Ambulatory 01/22/2019 Office Visit Pulmonology Lola Barksdale MD [address] [place] [address] [facility] Start: 01-21-2019 Hospital Encounter 01/21/2019 [facility] Lola Belcher MD [address] [place] [address] [facility] Start: 01-14-2019 Ambulatory 01/14/2019 [facility] Lola Belcher MD [address] [place] [address] [facility] Start: 11-28-2018 End: 11-28-2018 Office Visit 11/28/2018 Office Visit Cardiology Aquiles Bay MD [address] [address] [phone] Cameron Munguia III, DO [address] [place] [address] [phone] [facility] Start: 11-26-2018 End: 11-26-2018 Appointment 11/26/2018 Appointment Cardiology Aquiles Bay MD [address] [address] [phone] [facility] Start: 10-18-2018 End: 10-18-2018 Ambulatory 10/18/2018 Office Visit Cardiology Aquiles Bay MD [address] [place] [address] [phone] [facility] Start: 09-28-2018 End: 09-28-2018 Ambulatory 09/28/2018 Office Visit Oncology Guillermo Branham MD [address] [place] [address] [phone] (Fax) [facility] Start: 07-25-2018 End: 07-25-2018 Ambulatory 07/25/2018 Office Visit Pulmonology Lola Barksdale MD [address] [place] [address] [place] [address] [phone] [facility] Start: 07-12-2018 End: 07-12-2018 Ambulatory 07/12/2018 Office Visit Oncology Guillermo Branham MD [address] [facility] [place] [address] [phone] (Fax) [facility] Start: 06-30-2018 Influenza vaccination SEQUENTIAL INFLUENZA VACCINE (#1) [facility] Start: 05-29-2018 End: 05-29-2018 Ambulatory [facility] Start: 05-10-2018 End: 05-10-2018 Ambulatory 05/10/2018 Office Visit Oncology [facility]illermo Branham MD [address] [facility] [place] [address] [facility] Start: 05-06-2018 End: 01-05-2019 CBC and Differential CBC and Differential Routine Anemia, unspecified type Monoclonal gammopathy Expected: 05/06/2018 (Approximate), Expires: 01/05/2019 [facility] Start: 05-06-2018 End: 01-04-2019 Ferritin Ferritin Routine Anemia, unspecified type Monoclonal gammopathy Expected: 05/06/2018 (Approximate), Expires: 01/04/2019 [facility] Start: 05-06-2018 End: 01-04-2019 Reticulocytes panel - Blood Reticulocyte Routine Anemia, unspecified type Monoclonal gammopathy Expected: 05/06/2018 (Approximate), Expires: 01/04/2019 [facility] Start: 01-17-2018 [facility] Start: 01-04-2018 Ambulatory 01/04/2018 Office Visit Oncology Guillermo Branham MD [address] [place] [address] [facility] Start: 12-08-2017 End: 09-08-2018 CBC and Differential CBC and Differential Routine Monoclonal gammopathy Abdominal pain, unspecified abdominal location Expected: 12/08/2017 (Approximate), Expires: 09/08/2018 [employer] Work Phone: Start: 12-08-2017 End: 09-07-2018 Immunofixation, Serum Immunofixation, Serum Routin e Monoclonal gammopathy Abdominal pain, unspecified abdominal location Expected: 12/08/2017 (Approximate), Expires: 09/07/2018 [employer] Work Phone: Start: 12-08-2017 End: 09-07-2018 Immunoglobulin Free Light Chains,Blood Immunoglobulin Free Light Chains,Blood Routine Monoclonal gammopathy Abdominal pain, unspecified abdominal location Expected: 12/08/2017 (Approximate), Expires: 09/07/2018 [employer] Work Phone: Start: 12-08-2017 End: 09-07-2018 Protein Electrophoresis, Blood Protein Electrophoresis, Blood Routine Monoclonal gammopathy Abdominal pain, unspecified abdominal location Expected: 12/08/2017 (Approximate), Expires: 09/07/2018 [employer] Work Phone: Start: 12-08-2017 End: 09-07-2018 Reticulocytes panel - Blood Reticulocyte Routine Monoclonal gammopathy Abdominal pain, unspecified abdominal location Expected: 12/08/2017 (Approximate), Expires: 09/07/2018 [employer] Work Phone: Start: 12-07-2017 Ambulatory 12/07/2017 Office Visit Oncology Guillermo Branham MD [address] [place] [address] [phone] [facility] Start: 10-16-2017 Ambulatory 10/16/2017 Office Visit Cardiology Aquiles Bay MD [address] [address] [facility] Start: 09-07-2017 Ambulatory 09/07/2017 Office Visit Oncology Guillermo Branham MD [address] [place] [address] [phone] [facility] Start: 09-06-2017 Ambulatory 09/06/2017 [facility] David Barksdale, Lola Goldsmith MD [address] [place] [address] [place] [address] [phone] [facility] Start: 08-17-2017 End: 08-18-2018 Cobalamins (Vitamin B12) Vitamin B12 Routine Anemia, unspecified type Monoclonal gammopathy Expected: 08/17/2017, Expires: 08/18/2018 [employer] Work Phone: Start: 08-17-2017 End: 08-18-2018 Comprehensive metabolic panel [AGGREGATE] Comprehensive Metabolic Panel Routine Anemia, unspecified type Monoclonal gammopathy Expected: 08/17/2017, Expires: 08/18/2018 [employer] Work Phone: Start: 08-17-2017 End: 08-17-2018 Ferritin Ferritin Routine Anemia, unspecified type Monoclonal gammopathy Expected: 08/17/2017, Expires: 08/17/2018 [employer] Work Phone: Start: 08-17-2017 End: 08-18-2018 Folate Folate Routine Anemia, unspecified type Monoclonal gammopathy Expected: 08/17/2017, Expires: 08/18/2018 [employer] Phone: Start: 08-17-2017 End: 08-17-2018 Hemoglobin presence in stool Occult Blood Stool Routine Anemia, unspecified type Monoclonal gammopathy Expected: 08/17/2017, Expires: 08/17/2018 [employer] Work Phone: Start: 08-17-2017 End: 08-17-2018 Immunofixation, Serum Immunofixation, Serum Routin e Anemia, unspecified type Monoclonal gammopathy Expected: 08/17/2017, Expires: 08/17/2018 [employer] Work Phone: Start: 08-17-2017 End: 08-17-2018 Immunoglobulin Free Light Chains,Blood Immunoglobulin Free Light Chains,Blood Routine Anemia, unspecified type Monoclonal gammopathy Expected: 08/17/2017, Expires: 08/17/2018 [employer] Phone: Start: 08-17-2017 End: 08-17-2018 Protein Electrophoresis, Blood Protein Electrophoresis, Blood Routine Anemia, unspecified type Monoclonal gammopathy Expected: 08/17/2017, Expires: 08/17/2018 [employer] Phone: Start: 08-17-2017 End: 08-18-2018 Reticulocytes panel - Blood Reticulocyte Routine Anemia, unspecified type Monoclonal gammopathy Expected: 08/17/2017, Expires: 08/18/2018 [employer] Phone: Start: 08-17-2017 End: 08-17-2018 XR Bone Survey Complete XR Bone Survey Complete Routine Anemia, unspecified type Monoclonal gammopathy Expected: 08/17/2017, Expires: 08/17/2018 [employer] Work Phone: Start: 06-30-2017 Influenza vaccination SEQUENTIAL INFLUENZA VACCINE (#1) [employer] Phone: Start: 2014 Abdominal aortic aneurysm screening Abdominal Aortic Aneurysm (AAA) Screening [facility] Start: 2014 Fall risk assessment [facility] [facility] Start: 2014 Pneumococcal vaccination [facility] Work Phone: Start: 2014 Ultrasound scan of abdominal aorta ABDOMINAL AORTIC ULTRASOUND [facility] Work Phone: Start: 2009 Hepatitis B Vaccines (1 of 3 - Risk 3-dose series) Hepatitis B Vaccines (1 of 3 - Risk 3-dose series) [facility] Start: 2009 RSV patients and/or patients aged 60+ years (1 - 1-dose 60+ series) RSV patients and/or patients aged 60+ years (1 - 1-dose 60+ series) [facility] Start: 2009 Zoster vacc, sc ZOSTER VACCINE [facility] Work Phone: Start: 1999 Administration of herpes zoster vaccine ZOSTER VACCINES (1 of 2) [facility] Start: 1999 Protein mass conc COLON CANCER SCREENING DISCUSSION [facility] Work Phone: Start: 1999 Screening for malignant neoplasm of colon [facility] Start: 1999 ZOSTER VACCINES (1 of 2) ZOSTER VACCINES (1 of 2) [facility] Start: 1968 Administration of herpes zoster vaccine Zoster Vaccines (1 of 2) [facility] Start: 1968 Hepatitis A Vaccines (1 of 2 - Risk 2-dose series) Hepatitis A Vaccines (1 of 2 - Risk 2-dose series) [facility] Start: 1968 Third diphtheria, tetanus and acellular pertussis (DTaP) vaccination TDAP (ADULT) [facility] Work Phone: Start: 1968 Urine screening for protein Diabetes: Urine Protein Screening [facility] Start: 1968 Zoster Vaccines (1 of 2) Zoster Vaccines (1 of 2) [facility] Start: 1967 Hepatitis C antibody, confirmatory test Hepatitis C Screening [facility] Start: 1967 Hepatitis C screening Hepatitis C Screening [facility] Start: 1967 Tetanus vaccination TETANUS [facility] Work Phone: Start: 1965 COVID-19 Vaccine (1 of 2) COVID-19 Vaccine (1 of 2) [facility] Start: 1961 Adolescent depression screening assessment Depression Screening (PHQ9) [facility] Start: 1961 Depression screening using PHQ-9 (Patient Health Questionnaire 9) score Depression Screening (PHQ9) [facility] Start: 1959 Glaucoma screening [facility] Start: 1959 End: 1959 Diabetic foot examination (regime/therapy) [facility] Start: 1959 End: 1959 Ophthalmic examination and evaluation [facility] Start: 1959 End: 1959 Urine, microalbumin URINE MICROALBUMIN [facility] Work Phone: Start: 1955 Pneumococcal Vaccine: Age 65+ (1 of 4 - PCV13) Pneumococcal Vaccine: Age 65+ (1 of 4 - PCV13) [facility] Start: 1952 History and physical examination, annual for health maintenance Wellness Visit [facility] Start: 1950 Hepatitis A Vaccines (1 of 2 - Risk 2-dose series) Hepatitis A Vaccines (1 of 2 - Risk 2-dose series) [facility] Start: 1949 Colonoscopy COLONOSCOPY [facility] Start: 1949 Depression screening using PHQ-9 (Patient Health Questionnaire 9) score DEPRESSION SCREENING (PHQ9) [facility] Start: 1949 Fall risk assessment Falls Risk Assessment [facility] Start: 1949 Hemoglobin A1c measurement Diabetes: Hemoglobin A1C [facility] Start: 1949 Hepatitis C antibody, confirmatory test [facility] Start: 1949 Medicare Annual Wellness Visit Medicare Annual Wellness Visit (AWV) [facility] Start: 1949 Prostate specific antigen measurement PSA Level [facility] Start: 1949 Protein mass conc COLONOSCOPY [facility] Start: 1949 Screening for malignant neoplasm of colon [facility] Start: 1949 Screening for malignant neoplasm of lung Low-dose CT Lung Cancer Screen [facility] Start: 1949 US scan of abdominal aorta Abdominal Aortic Ultrasound [facility] Start: 1949 End: 1949 HbA1c [facility] Work Phone: Start: 1949 HEPATITIS C SCREENING HEPATITIS C SCREENING [facility] Work Phone: Start: 1949 Low-dose CT Lung Cancer Screen Low-dose CT Lung Cancer Screen [facility] Work Phone: Start: 1949 Screening colonoscopy COLONOSCOPY [facility] Work Phone: Start: 1949 End: 1949 Tetanus vaccination [facility] Work Phone: Aerobic microbial culture Wound Aerobic Culture Microbiology Routine Ingrown toenail Paronychia of great toe PVD (peripheral vascular disease) (HCC) Tobacco use Xerosis of skin Diabetic foot (HCC) Ordered: 05/14/2024 [facility] Work Phone: Comment on above: Ordered: 05/14/2024 End: 02-01-2021 Carotid artery doppler assessment Carotid Duplex Vascular Ultrasound Routine Left carotid artery stenosis History of carotid endarterectomy 1 Occurrences starting 12/04/2019 until 02/01/2021 [facility] Comment on above: 1 Occurrences starting 12/04/2019 until 02/01/2021 End: 01-27-2020 Carotid artery doppler assessment Carotid Duplex Routine Stenosis of left carotid artery History of right-sided carotid endarterectomy 1 Occurrences starting 11/28/2018 until 01/27/2020 [facility] Comment on above: 1 Occurrences starting 11/28/2018 until 01/27/2020 End: 12-27-2020 Complete blood count with white cell differential, manual CBC and Differential Lab Routine IDDM (insulin dependent diabetes mellitus) (HCC) 1 Occurrences starting 12/27/2019 until 12/27/2020 [facility] Comment on above: 1 Occurrences starting 12/27/2019 until 12/27/2020 End: 05-08-2025 Complete blood count with white cell differential, manual CBC and Differential Lab Routine Type 2 diabetes mellitus with stage 3b chronic kidney disease, with long-term current use of insulin (HCC) 1 Occurrences starting 05/07/2024 until 05/08/2025 [facility] Work Phone: Comment on above: 1 Occurrences starting 05/07/2024 until 05/08/2025 End: 12-27-2020 Comprehensive metabolic 2000 panel Comprehensive Metabolic Panel Lab Routine IDDM (insulin dependent diabetes mellitus) ([facility]) 1 Occurrences starting 12/27/2019 until 12/27/2020 [facility] Comment on above: 1 Occurrences starting 12/27/2019 until 12/27/2020 End: 01-10-2023 Comprehensive metabolic 2000 panel - Serum or Plasma Comprehensive Metabolic Panel Lab Routine Type 2 diabetes mellitus with stage 3b chronic kidney disease, with long-term current use of insulin ([facility]) 1 Occurrences starting 01/10/2022 until 01/10/2023 [facility] Work Phone: Comment on above: 1 Occurrences starting 01/10/2022 until 01/10/2023 End: 05-08-2025 Comprehensive metabolic 2000 panel - Serum or Plasma Comprehensive Metabolic Panel Lab Routine Type 2 diabetes mellitus with stage 3b chronic kidney disease, with long-term current use of insulin (HCC) 1 Occurrences starting 05/07/2024 until 05/08/2025 [facility] Comment on above: 1 Occurrences starting 05/07/2024 until 05/08/2025 Doppler ultrasonography of artery of lower limb Segmental Doppler Lower Extremity Arterial Vascular Ultrasound Routine Diabetic foot ([facility]) PVD (peripheral vascular disease) (HCC) Type 2 diabetes mellitus with stage 3b chronic kidney disease, with long-term current use of insulin (HCC) Claudication of lower extremity (HCC) Tobacco use Xerosis of skin Onychodystrophy Ordered: 12/19/2023 [facility] Work Phone: Comment on above: Ordered: 12/19/2023 End: 06-03-2023 Echocardiography Echocardiogram complete Echocardiography Routine GREEN (dyspnea on exertion) 1 Occurrences starting 06/02/2022 until 06/03/2023 [employer] Work Phone: Comment on above: 1 Occurrences starting 06/02/2022 until 06/03/2023 End: 12-27-2020 Free T4 [Mass/Vol] T4, Free Lab Routine IDDM (insulin dependent diabetes mellitus) (HCC) 1 Occurrences starting 12/27/2019 until 12/27/2020 [facility] Comment on above: 1 Occurrences starting 12/27/2019 until 12/27/2020 H/O: surgery History of hand surgery [facility] End: 02-28-2021 HbA1c (Bld) [Mass fraction] Hemoglobin A1c Lab Routine IDDM (insulin dependent diabetes mellitus) (HCC) 1 Occurrences starting 12/27/2019 until 12/27/2020 [facility] Comment on above: 1 Occurrences starting 12/27/2019 until 12/27/2020 End: 01-10-2023 Hemoglobin A1c/Hemoglobin.total in Blood Hemoglobin A1c Lab Routine Type 2 diabetes mellitus with stage 3b chronic kidney disease, with long-term current use of insulin (HCC) 1 Occurrences starting 01/10/2022 until 01/10/2023 [facility] Comment on above: 1 Occurrences starting 01/10/2022 until 01/10/2023 End: 05-08-2025 Hemoglobin A1c/Hemoglobin.total in Blood Hemoglobin A1c Lab Routine Type 2 diabetes mellitus with stage 3b chronic kidney disease, with long-term current use of insulin ([facility]) 1 Occurrences starting 05/07/2024 until 05/08/2025 [facility] Comment on above: 1 Occurrences starting 05/07/2024 until 05/08/2025 History of cardiovascular surgery History of endarterectomy [facility] History of colonoscopy History of colonoscopy [facility] History of repair of musculotendinous cuff of shoulder History of repair of rotator cuff [facility] End: 06-10-2021 Incentive spirometry Incentive spirometry Respiratory Care Routine Closed fracture of multiple ribs of left side, initial encounter 1 Occurrences starting 06/10/2020 until 06/10/2021 [facility] Comment on above: 1 Occurrences starting 06/10/2020 until 06/10/2021 End: 12-27-2020 Lipid 1996 panel Lipid Panel Lab Routine IDDM (insulin dependent diabetes mellitus) (HCC) 1 Occurrences starting 12/27/2019 until 12/27/2020 [facility] Comment on above: 1 Occurrences starting 12/27/2019 until 12/27/2020 Low dose computed tomography of thorax CT Lung Cancer Screening Imaging Routine Screening for malignant neoplasm of respiratory organ Cigarette Smoker 05/25/2020 12:53 PM EDT [facility] End: 01-29-2020 Measurement of segmental blood pressure of artery of lower limb using doppler ultrasonography Segmental Doppler Lower Extremity Arterial W Exercise Routine Stenosis of left iliac artery (HCC) 1 Occurrences starting 11/28/2018 until 01/29/2020 [facility] Comment on above: 1 Occurrences starting 11/28/2018 until 01/29/2020 End: 04-05-2024 NM Brain Datscan SPECT CT Single Area Single Day NM Brain Datscan SPECT CT Single Area Single Day Imaging Routine 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HCC) 1 Occurrences starting 04/05/2023 until 04/05/2024 [facility] Work Phone: Comment on above: 1 Occurrences starting 04/05/2023 until 04/05/2024 Past history of procedure History of esophagogastroduodenoscopy (EGD) [facility] Patient Education ED Ankle Fracture [facility] Work Phone: Patient referral [facility] Work Phone: End: 09-09-2025 SPECT Heart perfusion NM Myocardial Perfusion Multiple SPECT Imaging Routine Chest pain, unspecified type History of CVA (cerebrovascular accident) 1 Occurrences starting 09/09/2024 until 09/09/2025 [facility] Work Phone: Comment on above: 1 Occurrences starting 09/09/2024 until 09/09/2025 Standard chest X-ray XR Chest AP /PA and LAT Imaging APOLINAR 05/27/2019 11:50 AM EDT [facility] End: 05-08-2025 Thyrotropin [Units/volume] in Serum or Plasma TSH Lab Routine Type 2 diabetes mellitus with stage 3b chronic kidney disease, with long-term current use of insulin ([facility]) 1 Occurrences starting 05/07/2024 until 05/08/2025 [facility] Comment on above: 1 Occurrences starting 05/07/2024 until 05/08/2025 End: 05-08-2025 Thyroxine (T4) free [Mass/volume] in Serum or Plasma T4, Free Lab Routine Type 2 diabetes mellitus with stage 3b chronic kidney disease, with long-term current use of insulin (HCC) 1 Occurrences starting 05/07/2024 until 05/08/2025 [facility] Comment on above: 1 Occurrences starting 05/07/2024 until 05/08/2025 End: 12-27-2020 TSH Qn TSH Lab Routine IDDM (insuli n dependent diabetes mellitus) (HCC) 1 Occurrences starting 12/27/2019 until 12/27/2020 [facility] Comment on above: 1 Occurrences starting 12/27/2019 until 12/27/2020 Urinalysis Urinalysis Routi ne Anemia, unspecified type Monoclonal gammopathy Ordered: 01/04/2018 [facility] End: 04-14-2020 US ED Fast Scan US ED Fast Scan Imaging STAT One time imaging One time imaging for 1 Occurrences starting 04/14/2020 until 04/14/2020 [facility] Comment on above: One time imaging One time imaging for 1 Occurrences starting 04/14/2020 until 04/14/2020 US ED Fast Scan US ED Fast Scan Imaging STAT 04/14/2020 1:16 PM EDT [facility] NEGATED: Highlighted row has been ruled out! Planned Goals not documented -[facility] Work Phone: Immunizations Immunization Date Immunization Notes Care Provider [facility] 12-05-2024 influenza, high dose seasonal, preservative-free Phyllis Mae MD Work Phone: [facility] Work Phone: 02-27-2024 zoster vaccine-recombinant adjuvanted (Shingrix, PF,) 50 mcg/0.5 mL vaccine Phyllis Mae MD Work Phone: [facility] Work Phone: 02-27-2024 pneumoc 20-chris conj- dip cr,PF, (Prevnar 20, PF,) 0.5 mL vaccine Phyllis Mae MD Work Phone: [facility] Work Phone: 02-27-2024 respiratory syncytia l virus, RSV, vaccine, adjuvanted, age 60y+ (Arexvy, PF,) 120 mcg/0.5 mL suspension for reconstitution Phyllis Mae MD Work Phone: [facility] Work Phone: 08-22-2023 Flu vaccine, quadrivalent, high-dose, preservative free, age 65y+ (FLUZONE) Phyllis Mae MD Work Phone: [facility] Work Phone: 08-22-2023 pneumoc 20-chris conj- dip cr,PF, (Prevnar 20, PF,) 0.5 mL vaccine Phyllis Mae MD Work Phone: [facility] Work Phone: 08-22-2023 influenza virus vacc ine, unspecified formulation David Jt [facility] Work Phone: [facility] 09-20-2022 Fluzone High-Dose Quadrivalent 0.7 ML Intramuscular Suspension Prefilled Syringe; 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: [Fluzone High-Dose Quadrivalent 0.7 ML Intramuscular Suspension Prefilled Syringe] Phyllis Mae Work Phone: [facility] Work Phone: Comment on above: Series: 09-20-2022 influenza, high dose seasonal, preservative-free Phyllis Mae MD Work Phone: [facility] Work Phone: 08-31-2021 Ryan COVID-19 Vac cine 0.5 ML Intramuscular Suspension Phyllis Mae Work Phone: [facility] Work Phone: Comment on above: Series: 08-31-2021 Moderna COVID-19 Vac cine 100 MCG/0.5ML Intramuscular Suspension Phyllis Mae Work Phone: [facility] Work Phone: 08-24-2021 Fluzone High-Dose Quadrivalent 0.7 ML Intramuscular Suspension Prefilled Syringe; 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: [Fluzone High-Dose Quadrivalent 0.7 ML Intramuscular Suspension Prefilled Syringe] Phyllis Mae Work Phone: [facility] Work Phone: Comment on above: Series: 08-24-2021 influenza, high dose seasonal, preservative-free Phyllis Mae MD Work Phone: [facility] Work Phone: 03-22-2021 tuberculin skin test ; purified protein derivative solution, intradermal Phyllis Mae MD Work Phone: [facility] Work Phone: 03-12-2021 pneumococcal polysaccharide vaccine, 23 valent Kateryna Yeboah SCHEDULING SPECIALIST Work Phone: [facility] 03-12-2021 pneumococcal vaccine , unspecified formulation Kateryna Yeboah SCHEDULING SPECIALIST Work Phone: [facility] 03-12-2021 tuberculin skin test ; purified protein derivative solution, intradermal Phyllis Mae MD Work Phone: [facility] Work Phone: 01-01-2021 Ryan SARS-CoV-2 Vaccination Jesus Toribio [facility] 07-20-2020 influenza, injectabl e, quadrivalent, contains preservative Phyllis Mae MD Work Phone: [facility] Work Phone: 07-20-2020 influenza, injectabl e, quadrivalent, preservative free; 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: [Flulaval Quadrivalent 0.5 ML Intramuscular Suspension Prefilled Syringe] Phyllis Mae [facility] Work Phone: Comment on above: Series: 06-10-2020 tetanus toxoid, redu marcelina diphtheria toxoid, and acellular pertussis vaccine, adsorbed Phyllis Mae Work Phone: [facility] Work Phone: 07-25-2019 influenza, high dose seasonal, preservative-free Aquiles [facility] 11-12-2018 HEMOGLOBIN A1C [facility] 07-25-2018 influenza, injectable,quadrivalent, preservative free, pediatric Josh Togliatti [facility] 11-23-2000 influenza virus vacc ine, whole virus Phyllis Mae Work Phone: [facility] Work Phone: Payers Date Payer Category Payer Dual Eligibility Medicare/Medicaid Organization [employer] [id number] 2024 Medicare HMO ANTHEM MEDIBLUE ESSENTIAL/PLUS/CONNECT/S [employer] UN[employer]ER HMO [id number] 2024 Medicare [id number] 2024 Self-pay 2019 Medicare HUMANA MANAGED M EDICARE HU[employer]NA MCR ADVANTAGE CHOICE PPO xxxxxxxxx 2019-Present xxxxxxxxx [id number] 2019 Medicare [id number] .[id number] 2019 Medicare PPO HUMANA MCR ADVAN TAGE CHOICE PPO [id number] 2019 Unknown 2019 Medicare [id number] 2018 Medicaid [id number] 2.16.840.1.692822.3.249.1 3 2018 Medicaid [id number] 1.2.840.149230.1.13.385.2 .[id number] 2017 Medicaid 2017 Medicaid [id number] 2.16.840.1.432365.3.249.1 3 2014 Medicare [id number] 2.16.840.1.972081.3.249.1 3 2014 Medicare MEDICARE MEDICAR E PART A & B xxxxxxxxxxx 2014-Present [place] xxxxxxxxxxx [id number] 2014 Medicare 2014 Medicare [id number] 1949 Unknown [id number] 2.16.840.1.102037.3.579.2 1949 Unknown [id number] 2.16.840.1.303007.3.579.2 1949 Unknown [id number] 2.16.840.1.171508.3.579.2 1949 Unknown [id number] 2.16.840.1.976369.3.579.2 1949 Unknown [id number] 2.16.840.1.754964.3.579.2 1949 Unknown [id number] 2.16.840.1.204864.3.579.2 1949 Unknown [id number] 2.16.840.1.387356.3.579.2 1949 Unknown [id number] 2.16.840.1.191332.3.579.2 .1949 Unknown [id number] 2.16.840.1.385473.3.579.2 .1949 Unknown [id number] 2.16.840.1.197033.3.579.2 .1949 Unknown [id number] 2.16.840.1.880961.3.579.2 .1949 Unknown [id number] 2.16.840.1.475322.3.579.2 .1949 Unknown [id number] 2.16.840.1.594996.3.579.2 .1949 Unknown [id number] 2.16.840.1.394459.3.579.2 .1949 Unknown [id number] 2.16.840.1.086562.3.579.2 .900 1949 Unknown [id number] 2.16.840.1.617774.3.579.2 .1068 1949 Unknown [id number] 2.16.840.1.966738.3.579.2 .1068 1949 Unknown [id number] 2.16.840.1.269275.3.579.2 .1068 1949 Unknown [id number] 2.16.840.1.121287.3.579.2 .1068 1949 Unknown [id number] 2.16.840.1.667486.3.579.2 .1068 1949 Unknown [id number] 2.16.840.1.931496.3.579.2 .1068 1949 Unknown [id number] 2.16.840.1.379191.3.579.2 .356 1949 Unknown [id number] 2.16.840.1.275158.3.579.2 .356 1949 Unknown [id number] 2.16.840.1.457819.3.579.2 .356 1949 Unknown [id number] 2.16.840.1.842852.3.579.2 .356 1949 Unknown [id number] 2.16.840.1.887151.3.579.2 .356 1949 Unknown [id number] 2.16.840.1.486719.3.579.2 .1243 1949 Unknown [id number] 2.16.840.1.971260.3.579.2 .1949 Unknown [id number] 2.16.840.1.641777.3.579.2 .1949 Unknown [id number] 2.16840.1.632698.3.579.2 .1949 Unknown [id number] 2.16.840.1.986763.3.579.2 .1949 Unknown [id number] 2.16.840.1.561595.3.579.2 .1949 Unknown [id number] 2.16.840.1.400719.3.579.2 .1949 Unknown [id number] 2.16.840.1.227162.3.579.2 1949 Unknown [id number] 2.16.840.1.642950.3.579.2 .1949 Unknown [id number] 2.16.840.1.006113.3.579.2 1949 Unknown [id number] 2.16.840.1.377922.3.579.2 .1949 Unknown [id number] 2.16.840.1.069689.3.579.2 .1949 Unknown [id number] 2.16.840.1.836630.3.579.2 .1244 1949 Unknown [id number] 2.16.840.1.446348.3.579.2 .1244 1949 Unknown [id number] 2.16.840.1.291064.3.579.2 .1244 1949 Unknown [id number] 2.16.840.1.650391.3.579.2 .1244 1949 Unknown [id number] 2.840.1.621872.3.579.2 .1244 1949 Unknown [id number] 2.840.1.386896.3.579.2 1949 Unknown [id number] 2.840.1.966148.3.579.2 .1949 Unknown [id number] 2.840.1.006969.3.579.2 1949 Unknown [id number] .840.1.762421.3.579.2 1949 Unknown [id number] 2.840.1.210268.3.579.2 .1949 Unknown [id number] 2.840.1.229206.3.579.2 .1949 Unknown [id number] 2.840.1.910538.3.579.2 1949 Unknown [id number] 2.16840.1.603240.3.579.2 1949 Unknown [id number] 2.16840.1.882158.3.579.2 1949 Unknown [id number] 2.16840.1.151270.3.579.2 .903 1949 Unknown [id number] .840.1.672732.3.579.2 .903 1949 Unknown [id number] .840.1.975503.3.579.2 .903 1949 Unknown [id number] 2.840.1.527816.3.579.2 .124 1949 Unknown [id number] .840.1.329706.3.579.2 .124 1949 Unknown [id number] .840.1.845659.3.579.2 .1243 1949 Unknown [id number] .1.499827.3.579.2 .1244 Medicare xxxxxxxxxx 840.1.684518.3.249.1 3 Unknown [id number] 12.15.830.1.850505.3.579.2 .462 Unknown [id number] 840.1.394466.3.579.2 .462 Unknown [id number] 12.15.830.1.655057.3.579.2 .462 Unknown [id number] 840.1.634286.3.579.2 .462 Unknown [id number] 840.1.269493.3.579.2 .462 Unknown [id number] 840.1.434537.3.579.2 .462 Unknown [id number] 840.1.180867.3.579.2 .462 Unknown [id number] 840.1.685963.3.579.2 .462 Unknown [id number] 840.1.970200.3.579.2 .462 Unknown [id number] 2840.1.238756.3.579.2 .462 Unknown [id number] 12.15.830.1.842386.3.579.2 .462 Unknown [id number] 2.16.840.1.625826.3.579.2 .462 Unknown [id number] 2.16.840.1.162282.3.579.2 .462 Unknown [id number] 2.16.840.1.633554.3.579.2 .462 Unknown [id number] 2.16.840.1.121047.3.579.2 .462 Social History Date Type Detail Facility Start: 10-30-1954 End: 10-03-2024 Tobacco smoking status PRIS Current every day smoker [facility] Work Phone: Start: 01-04-2018 End: 02-28-2023 Cigarettes smoked current (pack per day) - Reported [facility] Work Phone: Start: 1950 Sex Assigned At Not on file [facility] Work Phone: Start: 10-30-1954 History of tobacco use Cigarette Smoker [facility] Start: 07-10-2018 End: 03-17-2022 Tobacco Comment Former 3-4 ppd 40 years [facility] Start: 05-24-2017 Alcohol Comment occasional [facility] Start: 10-25-2019 End: 01-02-2025 Alcohol intake Current drinker of alcohol (finding) [facility] Exposure to SARS-CoV-2 (event) Unable to assess [facility] [facility] Start: 12-31-2021 End: 12-05-2024 Exposure to SARS-CoV-2 (event) Not sure [facility] Start: 08-31-2020 End: 10-03-2024 Tobacco use and exposure Never used [facility] Tobacco smoking consumption unknown [facility] Start: 04-01-2019 End: 03-07-2023 Alcohol intake Ex-drinker (finding) [facility] Start: 02-28-2023 End: 03-07-2023 Tobacco use panel [facility] Work Phone: Within the last year , have you been afraid of your partner or ex-partner? No [facility] Are you now , , , , never or living with a partner? [facility] How often to you hav e a [...] - these days [OSQ] Only a little [facility] (I/We) worried whether (my/our) food would run out before (I/we) got money to buy more. Never true [facility] Start: 09-28-2018 Gender identity Identifies as male gender (finding) [facility] Start: 09-28-2018 Sexual orientation Heterosexual (fin ding) [facility] Start: 08-22-2023 Alcohol Comment [facility] Work Phone: Start: 01-07-2025 End: 01-29-2025 Sex Male (finding) [facility] Start: 1950 Sex Assigned At Male [facility] Start: 04-10-2025 Tobacco smoking status NHIS Ex-smoker (finding) [facility] NEGATED: Highlighted row - - [facility] Work Phone: Medical Equipment Procedure Code Equipment Code Equipment Origin al Text Equipment Identifier Dates [id number] Start: 10-29-2018 End: 12-05-2024 USE DIRECTED TWICE DAILY WITH LANTUS DX: DMII/E11.9 [id number] Start: 10-28-2018 End: 12-27-2019 1 (one) strip by Miscellaneous route 4 (four) times a day . [id number] Start: 12-27-2019 Use as directed, 4 times daily. . [id number] Start: 12-27-2019 End: 04-06-2021 Use to check BG 3x daily. DX code E11.9 on insulin . [id number] Start: 01-01-2020 End: 01-13-2021 Accu-Chek Elli Plus [...] DAILY. DX CODE E11.9 ON INSULIN . [id number] Start: 01-13-2021 Nail 11 X 170mm 130deg Fem Short Hilaria Ti Sterl Tfna - [id number] Start: 04-07-2021 Screw 105mm Fen Helical Ti Sterl Tfna - [id number], [id number] FDA Start: 04-07-2021 Screw 5 X 36mm T i Locking T25 Strdrv Im Nail - [id number] Start: 04-07-2021 by Miscellaneous route 4 (four) times a day E11.65 on insulin . [id number] Start: 08-03-2021 End: 09-02-2021 Use as directed QID. E11.65 on QID insulin regimen . [id number] Start: 08-03-2021 Use as directed 4 times daily . [id number] Start: 08-03-2021 Accu-Chek Elli Plus In Vitro Strip TEST TWICE DAILY. Refills: 0 DO Active Lancets Ultra Th in use to check glucose bid Refills: 0 DO Active USE TO CHECK BG 3X DAILY. DX CODE E11.9 ON INSULIN . [id number] Start: 01-10-2022 USE DIRECTED TO CHECK BLOOD SUGAR THREE TIMES DAILY [id number] Start: 02-06-2023 USE DIRECTED 4 TIMES A DAY E11.65 ON INSULIN REGIMEN . [id number] Start: 05-22-2022 Check blood gluc ose 4 times daily . [id number] Start: 11-01-2023 Use to check 2 x daily. DX code E11.65 . [id number] Start: 12-19-2023 by Miscellaneous route Use to check 2 x daily. DX code E11.65 . [id number] End: 12-19-2023 Use to check BG 3 x daily. DX code E11.65 inulin dependent DM (Accu-check Guide strips.) . [id number] Start: 01-04-2024 by Miscellaneous route Use to check BG 3 x daily. DX code E11.65 inulin dependent DM Accu-check Guide strips. . [id number] End: 01-04-2024 Use as directed to inject insulin 5 times per day . [id number] Start: 09-11-2024 Functional Status Date Assessment Result Facility NEGATED: Highlighted row Functional performance Functional status health issues are not documented Disease [facility] Work Phone: Mental Status Date Assessment Result Facility 04-10-2025 Cognitive function Level Of Cons ciousness Awake;Alert;Appropriate ;Follows Commands [facility] Work Phone: NEGATED: Highlighted row Cognitive function [Interpretation] Cognitive status health issues are not documented Disease [facility] Work Phone: Clinical Notes 02-01-2010 to 04-17-2025 Note Date & Type Note Facility 04-17-2025 Evaluation note Diagnosis Onset Date Resolution Closed right ankle fracture inactive April 17, 2025 9:12am [facility] Work Phone: 1(294) 562-587006-12-2025 Radiology Diagnostic study note [facility] Imaging Services [address] [place] [address] [id number] Ankle min 3 Views MR#: [id number] Acct: [id number] Name: STEVO GERMAIN Rep #: [id number] : 1950 M 75 From: Bradford Mcarthur MD PCP: PHYLLIS MAE Status: REG ER Study:Ankle min 3 Views Date of Exam: Exam# [id number] Ordering Dr: Rakel Willard PROCEDURE: ANKLE MIN [...] inferior calcaneal spurring is seen. Reading Location: [address] CC: PHYLLIS MAE; ALLAN Marquez ~ [employer] Dual Rate Supervisor: Signed [facility]06-12-2025 Radiology Diagnostic study note [facility] Imaging Services [address] [place], [place] [address] Knee 3 Views MR#: [id number] Acct: [id number] Name: STEVO GERMAIN Rep #: [id number] : 1950 M 75 From: Pratibha Pope MD PCP: PHYLLIS MAE Status: REG ER Study:Knee 3 Views Date of Exam: 5 Exam# [id number] Ordering Dr: Rakel Willard PROCEDURE: KNEE 3 [...] 3. Other findings as noted. Reading Location: [place] [address] CC: ALLAN Rascon ~ [employer] Dual Rate Supervisor: Signed [facility] Work Phone: 1([phone]) 673-469203-06-2025 NoteEstablished Patient Visit BHUMIKA Lin DPM Patient Name: Stevo Germain. . Date of : 1950, 74 y.o.. [...] Result Date: 03/21/2024 Patient Info Name: STEVO GERMAIN Age: 74 years : 1950 Gender: Male Exam Date: 03/21/2024 3:08 PM Patient Status: Outpatient Material Checker: Albert Inman T Referring Physician: BUDDY LIN II ; Indications - non palpable pulses, tobacco use I73.9 - Peripheral vascular disease, unspecified Procedure Description 47599 Limited bilateral noninvasive physiologic studies of upper [...] partially created using voice (more content not included)...[facility]03-06-2025 History of Present illness Narrative* BHUMIKA Lin DPM - 01/02/2025 3:22 PM EST Images from the original note were not included. Established Patient Visit BHUMIKA Lin DPM Patient Name: Stevo Germain. . Date of : 1950, 74 y.o.. [...] on the right are elongated dystrophic with evidenceof subungual debris. Upon debridement these are quite [...] Result Date: 03/21/2024 Patient Info Name: STEVO GERMAIN Age: 74 years : 1950 Gender: Male Exam Date: 03/21/2024 3:08 PM Patient Status: Outpatient Material Checker: Albert Inman RVT Referring Physician: BUDDY LIN II ; Indications - non palpable pulses,tobacco use I73.9 - Peripheral vascular disease, unspecified Procedure Description 27302 Limited bilateral noninvasive physiologic studies of upper or lower extremity arteries with bidirectional Doppler/PVR waveform analysis at 1-2 levels. Conclusions * Right. * Right ankle brachial index is normal. CLEMENCIA is 0.94. * No evidence of small vessel disease at the transmetatarsal level in the right foot. * Right toe brachial index is normal. * Left. * Left ankle brachial index indicates mild peripheralartery disease noted at the iliofemoral level(s). CLEMENCIA [...] Lt Posterior Tibial: 135 Lt Dorsalis Pedis: 131Lt Digit: 111 0.74 0.70 0.78 0.75 0.64 Prior Study Date: 03/17/2022 Risk Factors Patient has a history of hypertension, hyperlipidemia, diabetes, tobacco use- current and PAD. COPD. CKD. . Report Signatures [...] Foot & Ankle Surgery documented in this [id number] History of Present illness Narrative* Thelma Hankins MA - 12/05/2024 12:45 PM EST Pt needing refills for nub solution and spiriva * Phyllis Mae MD - 12/05/2024 12:45 PM EST Subjective Patient ID: Stevo Germain is a 74 y.o. male who presents for Follow-up (Follow up 1 month ). HPI LAB F/U . CURRENTLY IS GETTING PHYSICAL TX WHICH HELPS WITH BALANCE .SMOKES TOBACCO 1/2 PPD ,HASN'TSTARTED THE NICOTINE PATCH YET. FORM FOR ASSISTED LIVING TO BE DONE. HYPOTENSIVE EPISODE TODAY, BUTIS ASYMPTOMATIC. NEEDS FLU VACCINE TODAY. Review of [...] unspecified COPD type (Multi) tiotropium (Spiriva) 18 mcginhalation capsule 3. Healthcare maintenance calcium carbonate-vitamin D3 500 mg-5 mcg (200 unit) tablet multivitamin with minerals (knxqpyrdvoim-tiib-bfvrc acid) tablet 4. Smoker nicotine (Nicoderm CQ) 14 mg/24 hr patch nicotine (Nicoderm CQ) 7 mg/24 hr patch 5. Type 2 diabetes mellitus with hyperglycemia, with long-term current use of insulin ComprehensiveMetabolic Panel Hemoglobin A1C Comprehensive Metabolic Panel Hemoglobin [...] REFERRAL, . 3 mon documented in this [facility] Work Phone: 1(376) 203-675201-23-2025 History of Present illness Narrative* Radha Antonio RN - 11/21/2024 3:57 PM EST ALLAN requested for Dexcom G7 Sensor Rasmussen: [id number] Status: Eligibility could not be verified for this patient - patient not found. Please review patient information and re-submit. documented in this [id number] Evaluation + Plan note* Assessment & Plan Note - Phyllis Mae MD - 11/05/2024 1:00 PM EST Associated Problem(s): COPD (chronic obstructive pulmonary disease) (Multi) Orders: tiotropium (Spiriva with HandiHaler) 18 mcg inhalation capsule; Place 1 capsule (18 mcg) into inhaler and inhale once daily. AT THE SAME TIME EVERY DAY VIA HANDIHALER [facility] Work Phone: [phone]) 916-643101-07-2025 Evaluation + Plan note* Assessment & Plan Note - Phyllis Mae MD - 11/05/2024 1:00 PM ESTAssociated Problem(s): Essential tremor Orders: primidone (Mysoline) 50 mg tablet; Take 1 tablet (50 mg) by mouth 2 times a day. [facility] Work Phone: [phone] 304-536901-07-2025 Evaluation + Plan note* Assessment & Plan Note - Phyllis Mae MD - 11/05/2024 1:00 PM ESTAssociated Problem(s): DM2 (diabetes mellitus, type 2) (Multi) Orders: Lantus Solostar U-100 Insulin 100 unit/mL (3 mL) pen; Inject 5 Units under the skin once daily in the morning. Take as directed per insulin instructions. Comprehensive Metabolic Panel; Future Hemoglobin A1C; Future Albumin-Creatinine Ratio, Urine Random; Future [facility] Work Phone: [phone]) 618-554901-07-2025 Evaluation + Plan note* Assessment & Plan Note - Phyllis Mae MD - 11/05/2024 1:00 PM ESTAssociated Problem(s): Hypertension associated with type 2 diabetes mellitus (Multi) Orders: Comprehensive Metabolic Panel; Future [facility] Work Phone: [phone]) 653-170201-07-2025 Evaluation + Plan note* Assessment & Plan Note - Phyllis Mae MD - 11/05/2024 1:00 PM ESTAssociated Problem(s): Hyperlipemia [facility] Work Phone: [phone]) 237-469501-07-2025 Evaluation + Plan note* Assessment & Plan Note - Phyllis Mae MD - 11/05/2024 1:00 PM ESTAssociated Problem(s): Thrombocytopenia (CMS-HCC) [facility] Work Phone: [phone]) 647-910501-07-2025 Evaluation + Plan note* Assessment & Plan Note - Phyllis Mae MD - 11/05/2024 1:00 PM ESTAssociated Problem(s): Folate deficiency [facility] Work Phone: [phone] Evaluation + Plan note* Assessment & Plan Note - Phyllis Mae MD - 11/05/2024 1:00 PM ESTAssociated Problem(s): CRF (chronic renal failure), stage 3 (moderate) (Multi) [facility] Work Phone: [phone] 742-991901-07-2025 Evaluation + Plan note* Assessment & Plan Note - Phyllis Mae MD - 11/05/2024 1:00 PM ESTAssociated Problem(s): Fatigue (Resolved 11/05/2024) Orders: Comprehensive Metabolic Panel; Future Magnesium; Future Zinc; Future TSH with reflex to Free T4 if abnormal; Future [facility] Work Phone: [phone]) 634-117701-07-2025 History of Present illness Narrative* Phyllis Mae MD - 11/05/2024 1:00 PM EST Subjective Reason for Visit: Stevo Germain is an 74 y.o. male here for a Medicare Wellness visit. Past Medical, Surgical, and Family History reviewed and updated in chart. Reviewed all medications by prescribing practitioner or clinical pharmacist (such as prescriptions,OTCs, herbal therapies and supplements) and documented in [...] patient,diagnosis , treatment and prognosis discussed with ptfor 16 minutes,pt has capacity to make own decision, pt does not have an AD, advised to set one up and bring a copy for the chart. TEST RESULTS WERE DISCUSSED. ADVISED TO HAVE LOW FAT AND LOW CALORIE DIET , DAILY EXERCISE, FALL PRECAUTION. WILL DO PHYSICAL TXBY HOME HEALTH. Diabetes Mellitus/IFG addressed as follow: [...] PROCEDURE REFERRAL, . 1 mon Labs to [facility]. documented in this [facility] Work Phone: [phone]) 770-553701-07-2025 Miscellaneous Notes* Assessment & Plan Note - Phyllis Mae MD - 11/05/2024 1:00 PM ESTAssociated Problem(s): COPD (chronic obstructive pulmonary disease) (Multi) Orders: tiotropium (Spiriva with HandiHaler) 18 mcg inhalation capsule; Place 1 capsule (18 mcg) into inhaler and inhale once daily. AT THE SAME TIME EVERY DAY VIA HANDIHALER * Assessment & Plan Note - Phyllis Mae MD - 11/05/2024 1:00 PM EST Associated Problem(s): Essential tremor Orders: primidone (Mysoline) 50 mg tablet; Take 1 tablet (50 mg) by mouth 2 times a day. * Assessment & Plan Note - Phyllis Mae MD - 11/05/2024 1:00 PM EST Associated Problem(s): DM2 (diabetes mellitus, type 2) (Multi) Orders: Lantus Solostar U-100 Insulin 100 unit/mL (3 mL) pen; Inject 5 Units under the skin once daily in the morning. Take as directed per insulin instructions. Comprehensive Metabolic Panel; Future Hemoglobin A1C; Future Albumin-Creatinine Ratio, Urine Random; Future * Assessment & Plan Note - Phyllis Mae MD - 11/05/2024 1:00 PM EST Associated Problem(s): Hypertension associated with type 2 diabetes mellitus (Multi) Orders: Comprehensive Metabolic Panel; Future * Assessment & Plan Note - Phyllis Mae MD - 11/05/2024 1:00 PM EST Associated Problem(s): Hyperlipemia * Assessment & Plan Note - Phyllis Mae MD - 11/05/2024 1:00 PM EST Associated Problem(s): Thrombocytopenia (CMS-HCC) * Assessment & Plan Note - Phyllis Mae MD - 11/05/2024 1:00 PM EST Associated Problem(s): Folate deficiency * Assessment & Plan Note - Phyllis Mae MD - 11/05/2024 1:00 PM EST Associated Problem(s): CRF (chronic renal failure), stage 3 (moderate) (Multi) * Assessment & Plan Note - Phyllis Mae MD - 11/05/2024 1:00 PM EST Associated Problem(s): Fatigue (Resolved 11/05/2024) Orders: Comprehensive Metabolic Panel; Future Magnesium; Future Zinc; Future TSH with reflex to Free T4 if abnormal; Future documented in this [facility] Work Phone: [phone]) 404-461412-05-2024 Instructions* Patient Instructions* Jesus Adkins MA - 10/03/2024 2:43 PM EST How to contact your Care Team: Providers: DO Oniel Rich III, CNP Jill Bender, PA Nurse: Lien Zheng To reschedule office appointments call Scheduling [phone] In case of an emergency please call 911. When in need of refills please call the phone number listed above. Please include medication name, pharmacy name and specify 30 or 90 day supply Please check with your pharmacy within 24 hours of your request for refill. You must follow up as directed to continue current refills. Thank you! documented in this [id number] NoteAssessment & Plan: 1. History of carotid endarterectomy Carotid Duplex 2. Stenosis of left carotid artery Carotid Duplex 3. Neurogenic claudication 4. PAD (peripheral artery disease) ([facility]) 5. Type 2 diabetes mellitus with stage 3b chronic kidney disease, with long-term current use of insulin ([facility]) 6. Tobacco use Plan: At the present time, Mr. Germain continues to do well with regards to [...] 10/03/2026) for Recheck with testing. Subjective: Stevo Germain is a 74 y.o. male seen in the office today for follow up regarding carotid artery disease. Mr. Germain (birthday 1950) was seen in the office [...] Closed displaced intertrochanteric fracture of right femur ([facility]) 03/08/2021 Closed fracture of left orbital floor ([facility]) 06/10/2020 Closed fracture of multiple ribs of left side 06/10/2020 COPD (chronic obstructive pulmonary disease) ([facility]) Diabetes mellitus ([facility]) TYPE 2 Essential tremor Fall down stairs 04/14/2020 History of pneumonia Hyperlipidemia Hypertension Left carotid artery stenosis 03/30/2016 Leg cramps Leg heaviness MGUS (monoclonal gammopathy of unknown significance) Peptic ulcer disease PVD (peripheral vascular disease) ([facility]) Rhabdomyolysis 2010 Statin intolerance 04/01/2019 ??? Rhabdomyolysis in past. Stroke ([facility]) 2010 R side Past Surgical History: Procedure [...] a day . fe (more content not included)...[facility]12-05-2024 History of Present illness Narrative* Cameron Munguia III, DO - 10/03/2024 1:56 PM EST Assessment & Plan: 1. History of carotid endarterectomy Carotid Duplex 2. Stenosis of left carotid artery Carotid Duplex 3. Neurogenic claudication 4. PAD (peripheral artery disease) ([facility]) 5. Type 2 diabetes mellitus with stage 3b chronic kidney disease, with long-term current use of insulin ([facility]) 6. Tobacco use Plan: At the present time, Mr. Germain continues to do well with regards to [...] surgery. He does have some issues with balance,but he is using a rollator and is doing well with his activity level. Overall and pleased with his clinical condition. We will keep you informed after his next visit in 2 years. If you have any questions, please feel free to contact me. Follow Up Ordered: Return in about 2 years (around 10/03/2026) for Recheck with testing. Subjective: Stevo Germain is a 74 y.o. male seen in the office today for follow up regarding carotid artery disease. Mr. Germain (birthday 1950) was seen in the office on October 03, 2024. It has been approximately 2-1/2 years since he was seen last. He states he is done fairly well over the past timeframe. Hedoes use a walker/rollator for ambulation due to balance disturbances and strength issues. He does have significant diabetes mellitus with neuropathy, but denies any new evidence of strokes or TIAs or amaurosis or active carotid issues. He did undergo carotid duplex scan in the office today prior to seeing me. He continues to tolerate his medications satisfactorily. Unfortunately, he continues tosmoke small amounts intermittently during the week. He denies any rest pain or night pain or gangren e or symptoms consistent with critical limb ischemia though his activity level is somewhat diminished secondary to balance and neuropathy issues. Histories: Past Medical History: Diagnosis Date Arthritis Carotid artery occlusion CKD (chronic kidney disease) Stage III Closed displaced intertrochanteric fracture of right femur ([facility]) 03/08/2021 Closed fracture of left orbital floor ([facility]) 06/10/2020 Closed fracture of multiple ribs of left side 06/10/2020 COPD (chronic obstructive pulmonary disease) ([facility]) Diabetes mellitus ([facility]) TYPE 2 Essential tremor Fall down stairs 04/14/2020 History of pneumonia Hyperlipidemia Hypertension Left carotid artery stenosis 03/30/2016 Leg cramps Leg heaviness MGUS (monoclonal gammopathy of unknown significance) Peptic ulcer disease PVD (peripheral vascular disease) ([facility]) Rhabdomyolysis 2010 Statin intolerance 04/01/2019 ??? Rhabdomyolysis in past. Stroke ([facility]) 2010 R side Past Surgical History: Procedure [...] mg total) by mouth daily Give with food. 90 tablet 3 fluticasone propion-salmeteroL (ADVAIR DISKUS) 500-50 mcg/dose diskus inhaler Inhale 1 (one) puff 2(two) times a day . insulin aspart U-100 (NovoLOG Flexpen U-100 Insulin) 100 unit/mL (3 mL) InPn Take 5 units subcutaneous every day at meals, up to three times daily. Dx code E11.65. . 15 mL 1 isosorbide mononitrate (IMDUR) 30 MG 24 hr tablet Take 2 (two) tablets (60 mg total) by mouth daily. 180 tablet 3 Lantus Solostar U-100 Insulin 100 unit/mL (3 mL) InPn Inject 16 (sixteen) Units under the skin every morning . 15 mL 11 loratadine (CLARITIN) 10 mg tablet Take 1 (one) tablet (10 mg total) by mouth daily as needed for allergies . lovastatin (MEVACOR) 10 MG tablet Take 1 (one) tablet (10 mg total) by mouth daily . hdbkavgz-ubrb-GF-calcium-mins 9 mg iron-400 mcg Tab Take 1 [...] total) by mouth 2 (two) times a day. sucralfate (CARAFATE) 1 gram tablet Take 1 [...] E11.65 . 1 each 0 blood-glucose meter [facility] Use to check blood sugar as needed to calibrate CGM . 1 each 0 blood-glucose meter, wireless Kit by Miscellaneous route Use to check BG 2x daily. DX ode E11.76 . blood-glucose sensor ([employer] G7 Sensor) Jhon Use to check blood sugar four times daily . 3 each 11 lancets [facility] Check blood glucose 4 times daily . 400 each 3 lancing device with lancets (Accu-Chek Soft Dev Lancets) Kit Use to check 2 x daily. DX code E11.65. 1 kit 0 pantoprazole (PROTONIX) 40 MG [...] office on October 03, 2024 indicates a widelypatent right internal carotid artery with no evidence of restenosis at the endarterectomy site. Theleft carotid artery shows 50 to 69% narrowing though there is significant calcific shadowing. The left ICA peak systolic velocity is 207 cm/s, and the left ICA peak end-diastolic velocity is 55 cm/s.Left ICA/CCA systolic ratio 3.0. This is essentially [...] systolic ratio is 2.9. documented in this [id number] NoteEstablished Patient Visit BHUMIKA Lin DPM Patient Name: Stevo Germain. . Date of : 1950, 74 y.o.. [...] 2. Onychomycosis 3. PVD (peripheral vascular disease) ([facility]) 4. Tobacco use 5. Diabetic foot (HCC) 6. Xerosis of skin Imaging: Reviewed noninvasive vascular studies in detail with patient today. Impression below. Segmental Doppler Lower Extremity Arterial Result Date: 03/21/2024 Patient Info Name: STEVO GERMAIN Age: 74 years : 1950 Gender: Male Exam Date: 03/21/2024 3:08 PM Patient Status: Outpatient Material Checker: Albert Inman RVT Referring Physician: BUDDY LIN II ; Indications - non palpable pulses, tobacco use I73.9 - Peripheral vascular disease, unspecified Procedure Description 27036 Limited bilateral noninvasive physiologic studies of upper [...] In such instances, kenyetta (more content not included)...[facility]12-05-2024 History of Present illness Narrative* BHUMIKA Lin DPM - 10/03/2024 1:27 PM EST Images from the original note were not included. Established Patient Visit BHUMIKA Lin DPM Patient Name: Stevo Germain. . Date of : 1950, 74 y.o.. [...] on the right are elongated dystrophic with evidenceof subungual debris. Upon debridement these are quite brittle as well. Musculoskeletal: Bilateral foot and ankle overall rectus alignment. Muscle strength testing 5 out of 5 all tested muscular. Ankle range of motion limited with knee extended and slightly increased knee flexed. Diagnoses: 1. Onychodystrophy 2. Onychomycosis 3. PVD (peripheral vascular disease) ([facility]) 4. Tobacco use 5. Diabetic foot ([facility]) 6. Xerosis of skin Imaging: Reviewed noninvasive vascular studies in detail with patient today. Impression below. Segmental Doppler Lower Extremity Arterial Result Date: 03/21/2024 Patient Info Name: STEVO GERMAIN Age: 74 years : 1950 Gender: Male Exam Date: 03/21/2024 3:08 PM Patient Status: Outpatient Material Checker: Albert Inman RVT Referring Physician: BUDDY LIN II ; Indications - non palpable pulses,tobacco use I73.9 - Peripheral vascular disease, unspecified Procedure Description 17449 Limited bilateral noninvasive physiologic studies of upper or lower extremity arteries with bidirectional Doppler/PVR waveform analysis at 1-2 levels. Conclusions * Right. * Right ankle brachial index is normal. CLEMENCIA is 0.94. * No evidence of small vessel disease at the transmetatarsal level in the right foot. * Right toe brachial index is normal. * Left. * Left ankle brachial index indicates mild peripheralartery disease noted at the iliofemoral level(s). CLEMENCIA [...] Lt Posterior Tibial: 135 Lt Dorsalis Pedis: 131Lt Digit: 111 0.74 0.70 0.78 0.75 0.64 Prior Study Date: 03/17/2022 Risk Factors Patient has a history of hypertension, hyperlipidemia, diabetes, tobacco use- current and PAD. COPD. CKD. . Report Signatures [...] Foot & Ankle Surgery documented in this [id number] Evaluation + Plan note* Assessment & Plan Note - Aqu[place] Bay MD - 09/10/2024 7:28 AM EST Associated Problem(s): PVD (peripheral vascular disease) ([facility]) Reviewed. [id number] Evaluation + Plan note* Assessment & Plan Note - Aqu[place] Bay MD - 09/10/2024 7:28 AM ESTAssociated Problem(s): Essential hypertension Reviewed. [id number] Miscellaneous Notes* Assessment & Plan Note - Aquiles Bay MD - 09/10/2024 7:28 AM ESTAssociated Problem(s): PVD (peripheral vascular disease) ([facility]) Reviewed. * Assessment & Plan Note - Aquiles Bay MD - 09/10/2024 7:28 AM EST Associated Problem(s): Essential hypertension Reviewed. documented in this [id number] NoteOPG [address] ([address]) [facility] [address] [facility] [address] Subjective: Stevo Germain is a 74 y.o. male seen in [...] uses a walker. Seen today with her ysksmxnk-cg-kqa. No changes see back in 6 months. No history of MS. Normal nuclear stress test in 2019. Overview of Problems Addressed: Problem Essential Hypertension Chest Pain Pvd (Peripheral Vascular Disease) (Formerly [facility]) Assessment & Plan: Reviewed Essential hypertension Reviewed. PVD (peripheral vascular disease) ([facility]) Reviewed. Histories: Past Medical History: Diagnosis Date Arthritis Carotid artery occlusion CKD (chronic kidney disease) Stage III Closed displaced intertrochanteric fracture of right femur ([facility]) 03/08/2021 Closed fracture of left orbital floor ([facility]) 06/10/2020 Closed fracture of multiple ribs of left side 06/10/2020 COPD (chronic obstructive pulmonary disease) ([facility]) Diabetes mellitus ([facility]) TYPE 2 Essential tremor Fall down stairs 04/14/2020 History of pneumonia Hyperlipidemia Hypertension Left carotid artery stenosis 03/30/2016 Leg cramps Leg heaviness MGUS (monoclonal gammopathy of unknown significance) Peptic ulcer disease PVD (peripheral vascular disease) ([facility]) Rhabdomyolysis 2009 Statin intolerance 04/01/2019 ??? Rhabdomyolysis [...] daily. DX code E11.65 . BLOOD-GLUCOSE METER [facility] Use to check blood sugar as needed to calibrate CGM . BLOOD-GLUCOSE METER, WIRELESS KIT by Miscellaneous route Use to check BG 2x daily. DX ode E11.76 . BLOOD-GLUCOSE SENSOR ([employer] G7 SENSOR) JHON Use to check blood [...] times daily. Dx code E11.65. . LANCETS [facility] Check blood glucose 4 times [...] (MEVACOR) 10 MG TABLET (more content not included)...[facility] [id number] History of Present illness Narrative* Aquiles Bay MD - 09/09/2024 3:31 PM EST [facility] [address] ([address]) [facility] [address] [facility] [id number] Subjective: Stevo Germain is a 74 y.o. male seen in [...] walk on treadmill history of CVA uses [place]. Seen today with her rnrgvxgs-tv-asm. No changes see back in 6 months. No history of MS. Normal nuclear stress test in 2019. Overview of Problems Addressed: Problem Essential Hypertension Chest Pain Pvd (Peripheral Vascular Disease) (Formerly [facility]) Assessment & Plan: Reviewed Essential hypertension Reviewed. PVD (peripheral vascular disease) ([facility]) Reviewed. Histories: Past Medical History: Diagnosis Date Arthritis Carotid artery occlusion CKD (chronic kidney disease) Stage III Closed displaced intertrochanteric fracture of right femur ([facility]) 03/08/2021 Closed fracture of left orbital floor ([facility]) 06/10/2020 Closed fracture of multiple ribs of left side 06/10/2020 COPD (chronic obstructive pulmonary disease) ([facility]) Diabetes mellitus ([facility]) TYPE 2 Essential tremor Fall down stairs 04/14/2020 History of pneumonia Hyperlipidemia Hypertension Left carotid artery stenosis 03/30/2016 Leg cramps Leg heaviness MGUS (monoclonal gammopathy of unknown significance) Peptic ulcer disease PVD (peripheral vascular disease) ([facility]) Rhabdomyolysis 2010 Statin intolerance 04/01/2019 ??? Rhabdomyolysis in past. Stroke ([facility]) 2010 R side Past Surgical History: Procedure [...] daily. DX code E11.65 . BLOOD-GLUCOSE METER [facility] Use to check blood sugar as needed to calibrate CGM . BLOOD-GLUCOSE METER, WIRELESS KIT by Miscellaneous route Use to check BG 2x daily. DX ode E11.76 . BLOOD-GLUCOSE SENSOR (DEXCOM G7 [...] MCG/DOSE DISKUS INHALER Inhale 1 (one) puff 2(two) times a day . INSULIN ASPART U-100 (NOVOLOG FLEXPEN U-100 INSULIN) 100 UNIT/ML (3 ML) INPN Take 5 units subcutaneous every day at meals, up to three times daily. Dx code E11.65. . LANCETS [facility] Check blood glucose 4 times daily . LANCING DEVICE WITH LANCETS (ACCU-CHEK SOFT DEV LANCETS) KIT Use to check 2 x daily. DX code E11.65. LANTUS SOLOSTAR U-100 INSULIN 100 UNIT/ML (3 ML) INPN Inject 16 (sixteen) Units under the skin every morning . LORATADINE (CLARITIN) 10 MG TABLET Take 1 (one) tablet (10 mg total) by mouth daily as needed for allergies . LOVASTATIN (MEVACOR) 10 MG TABLET Take 1 (one) tablet (10 mg total) by mouth daily . KIYDHRUF-YLXU-XA-CALCIUM-MINS 9 MG IRON-400 MCG TAB Take 1 [...] total) by mouth 2 (two) times a day. SUCRALFATE (CARAFATE) 1 GRAM TABLET Take 1 [...] (one) tablet (81 mg total) by mouth daily. ATORVASTATIN (LIPITOR) 20 MG TABLET atorvastatin (LIPITOR) 20 MG tablet Take 1 (one) tablet (20 mg total) by mouth daily . Take 1 (one) tablet (20 mg total) by mouth daily. CLOPIDOGREL (PLAVIX) 75 MG TABLET clopidogreL (PLAVIX) 75 mg tablet Take 1 (one) tablet (75 mg total) by mouth daily . Take 1 (one) tablet (75 mg total) by mouth daily. FENOFIBRATE (TRICOR) 145 MG TABLET fenofibrate (TRICOR) [...] to schedule the procedure. Fax Order/Script to: [phone] for Central Scheduling scripts [phone] for [place] Scheduling scripts DO NOT USE R/O A DIAGNOSIS Order Specific Question: What type of stressing agent do you want to be used? Answer: Regadenoson (Lexiscan) Order Specific Question: Release to patient Answer: Immediate Order Specific Question: Administer radiopharmaceutical according to [facility] Nuclear Medicine policy? Answer: Yes ECG 12 Lead Order Specific Question: Release to patient Answer: Immediate Follow Up Ordered: Return in about 6 months (around 03/09/2025). Aqu[place] Bay MD * Kiana Cheatham MA - 09/09/2024 3:18 PM EST Review of Systems Constitutional: Negative for malaise/fatigue. Cardiovascular: Positive for chest pain. Negative for dyspnea on exertion, leg swelling and palpitations. Neurological: Negative for dizziness. documented in this [id number] Instructions* Patient Instructions* Fior Forbes CNP - 09/09/2024 2:19 PM [...] regimen without sufficient information. documented in this [id number] NotePatient ID: Stevo Germain is a 74 y.o. male 1950 Subjective: Stevo Germain presents for evaluation of Type 2 diabetes Diagnosed in 2004 Patient has taken Insulin for 10-11 years. Metformin stopped due to CRI. Mr. Germain is a 74 year-old male patient that [...] route Use to check BG 2x daily. [facility] ode E11.76 . calcium-vitamin D (OS-SHELDON +D) [...] 2 (two) times a day . lancets [facility], Check blood glucose 4 times daily . lancing device with lancets (Accu-Chek Soft Dev Lancets) Kit, Use to check 2 x daily. DX code E11.65 . loratadine (CLARITIN) 10 mg tablet, Take 1 (one) tablet (10 mg total) by mouth daily as needed for allergies . lovastatin (MEVACOR) 10 MG tablet, Take 1 (one) tablet (10 mg total) by mouth daily . saxcaqpg-xzuu-ST-calcium-mins 9 mg iron-400 mcg Tab, Take 1 [...] baseline), weakness and nu (more content not included)...[facility]11-11-2024 History of Present illness Narrative* Fior Forbes CNP - 09/09/2024 2:14 PM EST Images from the original note were not included. Patient ID: Stevo Germain is a 74 y.o. male 1950 Subjective: Stevo Germain presents for evaluation of Type 2 diabetes Diagnosed in 2004 Patient has taken Insulin for 10-11 years. Metformin stopped due to CRI. Mr. Germain is a 74 year-old male patient that presents today for follow-up in regards to his type 2diabetes. Patient currently takes basal insulin and novolog [...] for the 09/09/24 encounter (Office Visit) with Karlie Forbes CNP: acetaminophen (TYLENOL) 325 MG tablet, [...] (10 mg total) by mouth daily . bjkkdmix-upbs-XS-calcium-mins 9 mg iron-400 mcg Tab, Take 1 [...] past surgicalhistory and problem list. Objective: BP 129/69 (BP [...] meter Misc DISCONTINUED: blood-glucose meter,continuous (Dexcom G7 Component Design Engineer) Misc 2. Dyslipidemia Lipid Panel 3. Essential [...] Negative Exam within last 12 months: yes Director Of Global Talent/Endoscopy Technican: [facility] Other Ophthalmologic Conditions: S/P Right cataract extraction [...] of CAD, PVD Follows routinely with: Dr. 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 Efforts to improve compliance (if necessary) willbe directed at increased exercise and regular blood sugar monitorin times daily. Also, will be directed at dietary modifications: Limit portion sizes and Limit starches, carbohydrates and concentrated sugar sources 4. Follow up: 4 months 5. Record blood sugar readings as instructed. Call if BG consistently <70 or >250. [phone] 6. Bring blood sugar meter to follow up appointment. Orders Placed This Encounter Procedures Comprehensive Metabolic Panel Hemoglobin A1c Lipid Panel Microalbumin/Creatinine Ratio, UR Random T4, Free TSH Electronically signed by Fior BAIRES 242:18 PM documented in this [id number] Instructions* Patient Instructions* Urszula Aragon RN - 09/05/2024 2:54 PM EST How to Contact your Care Team: Provider: Dr. Aquiles Bay MD Gate Clerk: Urszula Aragon RN NUCLEAR MEDICINE CARDIAC STRESS [...] decide if more pictures are needed before youleave. If more are needed you will get another injection of nuclear medicine and this will take an additional hour. The total time for this test is 3-4 hours. There are medications that interfere with this test. You may be instructed to hold medications. If so that will be listed here: If you have any further questions please contact your care team or [phone]. documented in this [id number] History of Present illness Narrative* Phyllis Mae MD - 07/25/2024 12:45 PM EDT Subjective Patient ID: Stevo Germain is a 74 y.o. male who presents [...] REFERRAL, . 2 WEEKS Pt's [facility]. LABS TO BE DONE BY HOME HEALTH. documented in this [facility] Work Phone: [phone]) 514-235608-29-2024 NoteEstablished Patient Visit BHUMIKA Lin DPM Patient Name: Stevo Germain. . Date of : 1950, 74 y.o.. [...] 2. Onychomycosis 3. PVD (peripheral vascular disease) ([facility]) 4. Tobacco use 5. Diabetic foot ([facility]) 6. Toe pain, bilateral Imaging: Reviewed noninvasive vascular studies in detail with patient today. Impression below. Segmental Doppler Lower Extremity Arterial Result Date: 03/21/2024 Patient Info Name: STEVO GERMAIN Age: 74 years : 1950 Gender: Male Exam Date: 03/21/2024 3:08 PM Patient Status: Outpatient Material Checker: Albert Inman RVT Referring Physician: BUDDY LIN II ; Indications - non palpable pulses, tobacco use I73.9 - Peripheral vascular disease, unspecified Procedure Description 36697 Limited bilateral noninvasive physiologic studies of upper [...] Lin DPM Podiatric Foot & Ankle Surgery AUTHENTI (more content not included)...[facility]08-29-2024 History of Present illness Narrative* BHUMIKA Lin DPM - 06/27/2024 2:26 PM EDT Images from the original note were not included. Established Patient Visit BHUMIKA Lin DPM Patient Name: Stevo Germain. . Date of : 1950, 74 y.o.. [...] on the right are elongated dystrophic with evidenceof subungual debris. Upon debridement these are quite brittle as well. Musculoskeletal: Bilateral foot and ankle overall rectus alignment. Muscle strength testing 5 out of 5 all tested muscular. Ankle range of motion limited with knee extended and slightly increased knee flexed. Diagnoses: 1. Onychodystrophy 2. Onychomycosis 3. PVD (peripheral vascular disease) ([facility]) 4. Tobacco use 5. Diabetic foot (HCC) 6. Toe pain, bilateral Imaging: Reviewed noninvasive vascular studies in detail with patient today. Impression below. Segmental Doppler Lower Extremity Arterial Result Date: 03/21/2024 Patient Info Name: STEVO GERMAIN Age: 74 years : 1950 Gender: Male Exam Date: 03/21/2024 3:08 PM Patient Status: Outpatient Material Checker: Albert Inman Forrest Referring Physician: BUDDY LIN II ; Indications - non palpable pulses,tobacco use I73.9 - Peripheral vascular disease, unspecified Procedure Description 57561 Limited bilateral noninvasive physiologic studies of upper or lower extremity arteries with bidirectional Doppler/PVR waveform analysis at 1-2 levels. Conclusions * Right. * Right ankle brachial index is normal. CLEMENCIA is 0.94. * No evidence of small vessel disease at the transmetatarsal level in the right foot. * Right toe brachial index is normal. * Left. * Left ankle brachial index indicates mild peripheralartery disease noted at the iliofemoral level(s). CLEMENCIA [...] Lt Posterior Tibial: 135 Lt Dorsalis Pedis: 131Lt Digit: 111 0.74 0.70 0.78 0.75 0.64 Prior Study Date: 03/17/2022 Risk Factors Patient has a history of hypertension, hyperlipidemia, diabetes, tobacco use- current and PAD. COPD. CKD. . Report Signatures [...] Foot & Ankle Surgery documented in this [id number] NoteEstablished Patient Visit BHUMIKA Lin DPM Patient Name: Stevo Germain. . Date of : 1950, 74 y.o.. [...] AUTHENTICATED BY BUDDY LIN II, ON 05/14/2024 11:11:59[facility]07-16-20[facility] History of Present illness Narrative* BHUMIKA Lin DPM - 05/14/2024 11:07 AM EDT Images from the original note were not included. Established Patient Visit BHUMIKA Lni DPM Patient Name: Stevo Germain. . Date of : 1950, 74 y.o.. Gender: male. Subjective: Patient is a pleasant 74-year-old male who presents to clinic today for concerns of right great toeinfection. Patient was placed on doxycycline and has been on it for about a week. Patient continuesto smoke about a half a pack a day. Patient relates that the drainage is improving but it is still quite tender to the area. Patient denies does not remember any trauma. Patient is a diabetic with last known hemoglobin A1c of 8.32 weeks ago. He denies any current fever, chills, nausea, vomit, chestpain calf pain or shortness of breath. Patient has no other pedal complaints at this time peer Physical Examination: BP 108/71 (BP Location: Left arm, Patient Position: Sitting, BP Cuff Size: Adult) Pulse 93 Temp98.5 F (36.9 C) (Infrared) SpO2 92% General [...] substantially improved. Nails 1 on the right hasevidence of paronychia and substantial dry flaky drainage. [...] is superficial slough that is from dried drainage.Overlying is some paronychia. With the sharp podiatric [...] Foot & Ankle Surgery documented in this [id number] NotePatient ID: Stevo Germain is a 74 y.o. male 1950 Subjective: Stevo Germain presents for evaluation of Type 2 diabetes Patient has had diabetes for 16 years. Diagnosed in 2004 Patient has taken Insulin for 10-11 years. Patient has been following with Dr. Carmelita MD. Metformin stopped due to CRI. Mr. Germain is a 74 year-old male patient that [...] mg total) by mouth daily . lancets [facility], Check blood glucose 4 times daily . [...] mouth daily as needed for allergies . jclfuwgz-jvyv-GB-calcium-mins 9 mg iron-400 mcg Tab, Take 1 [...] headaches. Psychiatric/Behavioral: Negative for (more content not included)...[facility]07-11-2024 History of Present illness Narrative* David Waters CNP - 05/09/2024 9:37 AM EDT Images from the original note were not included. Patient ID: Stevo Germain is a 74 y.o. male 1950 Subjective: Stevo Germain presents for evaluation of Type 2 diabetes Patient has had diabetes for 16 years. Diagnosed in 2004 Patient has taken Insulin for 10-11 years. Patient has been following with Dr. Carmelita MD. Metformin stopped due to CRI. Mr. Germain is a 74 year-old male patient that presents today for follow-up in regards to his type 2diabetes. Patient currently takes basal insulin and novolog sliding scale, he states that he checksblood sugars approximately once daily. Glucometer reviewed today. [...] mg total) by mouth daily . lancets [facility], Check blood glucose 4 times daily . [...] mouth daily as needed for allergies . tsvbjnte-fkls-FV-calcium-mins 9 mg iron-400 mcg Tab, Take 1 [...] past surgicalhistory and problem list. Objective: BP 121/71 (BP [...] disease, with long-term current use of insulin ([facility]) CBC and Differential Comprehensive Metabolic Panel Hemoglobin [...] Negative Exam within last 12 months: yes Director Of Global Talent/Endoscopy Technican: [facility] Other Ophthalmologic Conditions: S/P Right cataract [...] of CAD, PVD Follows routinely with: Dr. Bay, Biannual follow-up, saw KILN CAR UNLOADER 07/12/2023 Respiratory: Positive History of COPD, continues to smoke 1 ppd. Previously followed with Dr. Jesus Barksdale, will be seeing Dr. Michele or [place]. 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 Right 4thrd toe. Will be seeing podiatry soon, going to call with an appointment, with Dr Patel Newly developed lesion to right great toe at the base of the nail. Rx sent to pharmacy for doxycyline 100 mg BID. Instructed to call Dr. Jorge JIANG for appointment this week for further evaluation and treatment.Patient offered that our office would call for appointment, however he refused and states they would call later today. History of amputation: No Thyroid: Lab Results Component Value Date TSH 1.99 03/08/2024 Negative Other: Follows with Dr. Branham for chronic anemia. Right hip fracture, repair [...] adjustments to his medication regimen based on hisevening readings. He was reminded his goal hemoglobin [...] Call if BG consistently <70 or >250. [phone] Patient has been checking blood glucoses 2 [...] CNP 05/09/24 9:40 AM documented in this [id number] NoteEstablished Patient Visit BHUMIKA Lin DPM Patient Name: Stevo Germain. . Date of : 1950, 74 y.o.. [...] increased knee flexed. Diagnoses: 1. Diabetic foot ([facility]) 2. PVD (peripheral vascular disease) ([facility]) 3. Type 2 diabetes mellitus with stage 3b chronic kidney disease, with long-term current use of insulin ([facility]) 4. Claudication of lower extremity ([facility]) 5. Tobacco use 6. Xerosis of skin 7. Onychodystrophy 8. Onychomycosis 9. Toe pain, bilateral Imaging: Reviewed noninvasive vascular studies in detail with patient today. Impression below. Segmental Doppler Lower Extremity Arterial Result Date: 03/21/2024 Patient Info Name: STEVO GERMAIN Age: 74 years : 1950 Gender: Male Exam Date: 03/21/2024 3:08 PM Patient Status: Outpatient Material Checker: Albert Inman RVT Referring Physician: BUDDY LIN II ; Indications - non palpable pulses, tobacco use I73.9 - Peripheral vascular disease, unspecified Procedure Description 93248 Limited bilateral noninvasive physiologic studies of upper [...] diabetic shoes with inser (more content not included)...[facility]05-28-2024 History of Present illness Narrative* BHUMIKA Lin DPM - 03/26/2024 1:59 PM EDT Images from the original note were not included. Established Patient Visit BHUMIKA Lin DPM Patient Name: Stevo Germain. . Date of : 1950, 74 y.o.. [...] Sitting, BP Cuff Size: Adult) Pulse 68 Temp98.4 F (36.9 C) (Infrared) SpO2 94% General [...] on the right are elongated dystrophic with evidenceof subungual debris. Upon debridement these are quite brittle as well. Musculoskeletal: Bilateral foot and ankle overall rectus alignment. Muscle strength testing 5 out of 5 all tested muscular. Ankle range of motion limited with knee extended and slightly increased knee flexed. Diagnoses: 1. Diabetic foot ([facility]) 2. PVD (peripheral vascular disease) ([facility]) 3. Type 2 diabetes mellitus with stage 3b chronic kidney disease, with long-term current use of insulin ([facility]) 4. Claudication of lower extremity ([facility]) 5. Tobacco use 6. Xerosis of skin 7. Onychodystrophy 8. Onychomycosis 9. Toe pain, bilateral Imaging: Reviewed noninvasive vascular studies in detail with patient today. Impression below. Segmental Doppler Lower Extremity Arterial Result Date: 03/21/2024 Patient Info Name: STEVO GERMAIN Age: 74 years : 1950 Gender: Male Exam Date: 03/21/2024 3:08 PM Patient Status: Outpatient Material Checker: Albert Inman RVT Referring Physician: BUDDY LIN II ; Indications - non palpable pulses,tobacco use I73.9 - Peripheral vascular disease, unspecified Procedure Description 37800 Limited bilateral noninvasive physiologic studies of upper or lower extremity arteries with bidirectional Doppler/PVR waveform analysis at 1-2 levels. Conclusions * Right. * Right ankle brachial index is normal. CLEMENCIA is 0.94. * No evidence of small vessel disease at the transmetatarsal level in the right foot. * Right toe brachial index is normal. * Left. * Left ankle brachial index indicates mild peripheralartery disease noted at the iliofemoral level(s). CLEMENCIA [...] Lt Posterior Tibial: 135 Lt Dorsalis Pedis: 131Lt Digit: 111 0.74 0.70 0.78 0.75 0.64 Prior Study Date: 03/17/2022 Risk Factors Patient has a history of hypertension, hyperlipidemia, diabetes, tobacco use- current and PAD. COPD. CKD. . 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 male here for a Medicare Wellness visit. Past Medical, Surgical, and Family History reviewed and updated in chart. Reviewed all medications by prescribing practitioner or clinical pharmacist (such as prescriptions,OTCs, herbal therapies and supplements) and documented in [...] to Home Health 10. Stable angina pectoris ([facility]) 11. Hypertension associated with type 2 diabetes [...] 2 weeks. Insert SmartText [facility] Phone: 1(666) 266-255304-25-2024 History of Present illness Narrative* Scott Warren PA-C - 02/22/2024 12:40 PM EDT [facility] [place] NOTE: Name: Stevo Germain, 73 y.o. CSN:[id number] PCP: Phyllis Mae MD ALL: Allergies Allergen [...] as of lately. Has not taken any bxdn-sin-dxcneph medications at this time. Denies fever, nausea, [...] pressure medication and he took his normal dosesthis morning. They did state that his maintenance specialist was trying to wean him off some of his blood pressure medications. He denies headache, nausea, vomiting, changes in vision, chest pain, shortness ofbreath. PMHx: Past Medical History: Diagnosis Date Encounter [...] DAY 90 tablet 3 multivitamin with minerals (bfsrfbhqrfgb-qdcj-rvrvz acid) tablet Take 1 tablet by mouth [...] 1 CAPSULE VIA HANDIHALER ONCE DAILY AT THESAME TIME EVERY DAY 30 capsule 11 sucralfate [...] Resource Strain: Low Risk (02/28/2023) Received from [facility] Overall Financial Resource Strain (CARDIA) Difficulty of Paying Living Expenses: Not hard at all Food Insecurity: No Food Insecurity (02/28/2023) Received from [facility] Hunger Vital Sign Worried About Running Out of Food in the Last Year: Never true Ran Out of Food in the Last Year: Never true Transportation Needs: No Transportation Needs (02/28/2023) Received from [facility] PRAPARE - Transportation Lack of Transportation (Medical): No Lack of Transportation (Non-Medical): No Physical Activity: Inactive (02/28/2023) Received from [facility] Exercise Vital Sign Days of Exercise per Week: 0 days Minutes of Exercise per Session: 0 min Stress: No Stress Concern Present (02/28/2023) Received from [facility] [place] [employer] - Occupational Stress Questionnaire Feeling of Stress : Only a little Social Connections: Moderately Isolated (02/28/2023) Received from [facility] Social Connection and Isolation Panel [NHANES] Frequency of Communication with Friends and Family: More than three times a week Frequency of Social Gatherings with Friends and Family: Once a week Attends [employer] Services: Never Active Member of Clubs or Organizations: No Attends Club or Organization Meetings: Never Marital Status: Intimate Partner Violence: Not At Risk (02/28/2023) Received from [facility] Humiliation, Afraid, Rape, and Kick questionnaire Fear of Current or Ex-Partner: No Emotionally Abused: No Physically Abused: No Sexually Abused: No Housing Stability: Low Risk (02/28/2023) Received from [facility] Housing Stability Vital Sign Unable to [...] medications that I prescribed during the UC courseand/or recommended as an out-patient (including possible OTC [...] to this plan and will report to [facility] immediately. Roberta Warren PA-C Advanced Practice Provider [facility] documented in this [facility] Work Phone: [phone]) 202-554904-24-2024 Telephone encounter Note* Telephone Encounter - Fior Forbes CNP - 02/21/2024 3:32 PM EDT Danette could you see the above message and pend me an order for novolog on this patient. Thanks [id number] Miscellaneous Notes* Telephone Encounter - Fior Forbes CNP - 02/21/2024 3:32 PM EDT Danette could you see the above message and pend me an order for novolog on this patient. Thanks * Telephone Encounter - Rayo Shaw MA - 02/21/2024 3:25 PM EDT Alternative requested for aspart. Insurance prefers Novolog. documented in this [id number] Telephone encounter Note* Telephone Encounter - Rayo Shaw MA - 02/21/2024 3:25 PM EDT Alternative requested for aspart. Insurance prefers Novolog. [id number] Telephone encounter Note* Telephone Encounter - Sita Solano LPN - 01/04/2024 10:55 AM EST After conversation with regarding "testing and high BG readings without symptoms." Discovered test strips were out dated by years." New rx for meter and strips given. With instructions to start apolinar for more accurate readings. [id number] Miscellaneous Notes* Telephone Encounter - Sita Solano LPN - 01/04/2024 10:55 AM EST After conversation with regarding "testing and high BG readings without symptoms." Discovered test strips were out dated by years." New rx for meter and strips given. With instructions to start apolinar for more accurate readings. documented in this [id number] Telephone encounter Note* Telephone Encounter - Shaniqua Lazaro LPN - 12/25/2023 3:28 PM EST Pt stated that he just picked up insulin and has no readings . Will call office back Monday with readings [id number] Miscellaneous Notes* Telephone Encounter - Shaniqua Lazaro LPN - 12/25/2023 3:28 PM EST Pt stated that he just picked up insulin and has no readings . Will call office back Monday with readings * Telephone Encounter - Shaniqua Lazaro LPN - 12/25/2023 3:21 PM EST LVM to called office * Telephone Encounter - Susan Baptiste MD - 12/25/2023 3:17 PM EST Please call and see if you can get any current BG readings from him * Telephone Encounter - Sita Solano LPN - 12/19/2023 3:55 PM EST Calling with BG of 509 per lab [...] to two different ladies. documented in this [id number] Telephone encounter Note* Telephone Encounter - Shaniqua Lazaro LPN - 12/25/2023 3:21 PM EST LVM to called office [id number] Telephone encounter Note* Telephone Encounter - Susan Baptiste MD - 12/25/2023 3:17 PM EST Please call and see if you can get any current BG readings from him [id number] Telephone encounter Note* Telephone Encounter - Sita Solano LPN - 12/19/2023 3:55 PM EST Calling with BG of 509 per lab [...] carefully 2 x to two different ladies. [id number] Miscellaneous Notes* Telephone Encounter - Sita Solano LPN - 12/19/2023 3:55 PM EST Calling with BG of 509 per lab [...] to two different ladies. documented in this [id number] History of Present illness Narrative* BHUMIKA Lin DPM - 12/19/2023 2:24 PM EST Images from the original note were not included. NEW Patient Visit BHUMIKA Lin DPM Patient Name: Stevo Germain. . Date of : 1950, 73 y.o.. Gender: male. Subjective: Patient is a pleasant 73-year-old male who presents to clinic today for comprehensive diabetic footcheck. Patient has seen a foot doctor many [...] He does admit to some pain in hiscalves when he walks for duration of time. Patient never had any stenting to his legs but did have a procedure for stenting to his carotid artery. Patient's most recent hemoglobin A1c is 8.6. Patient relates that this is quite high for him. He denies any numbness burning or tingling to his feet. Hedenies any current fever, chills, nausea, vomiting, chest pain calf pain or shortness of breath outside of his baseline. Patient has no other pedal complaints at this time. Past Medical History: Diagnosis Date Arthritis Carotid artery occlusion CKD (chronic kidney disease) Stage III Closed displaced intertrochanteric fracture of right femur ([facility]) 03/08/2021 Closed fracture of left orbital floor ([facility]) 06/10/2020 Closed fracture of multiple ribs of left side 06/10/2020 COPD (chronic obstructive pulmonary disease) ([facility]) Diabetes mellitus ([facility]) TYPE 2 Essential tremor Fall down stairs 04/14/2020 History of pneumonia Hyperlipidemia Hypertension Left carotid artery stenosis 03/30/2016 Leg cramps Leg heaviness MGUS (monoclonal gammopathy of unknown significance) Peptic ulcer disease PVD (peripheral vascular disease) ([facility]) Rhabdomyolysis 2010 Statin intolerance 04/01/2019 ??? Rhabdomyolysis in past. Stroke ([facility]) 2010 R side Past Surgical History: Procedure Laterality Date carotid angio 2010 HAND SURGERY Right 2009 IM NAILING FEMUR Right 04/07/2021 Procedure: RIGHT TFN; Surgeon: Dylon Galindo MD; Location: Main OR; Service: Orthopedic NE TEAEC W/PATCH GRF CAROTID VERTB SUBCLAV NECK INC Right 2010 SHOULDER OPEN ROTATOR CUFF REPAIR Left 2015 Social History Socioeconomic History Marital status: Occupational History Occupation: Disability Comment: [employer] ([employer]) Tobacco Use Smoking status: Every Day Packs/day: [...] min Stress: No Stress Concern Present (02/28/2023) [place] [employer] - Occupational Stress Questionnaire Feeling of Stress : Only a little Social Connections: Moderately Isolated (02/28/2023) Social Connection and Isolation Panel [NHANES] Frequency of Communication with Friends and Family: More than three times a week Frequency of Social Gatherings with Friends and Family: Once a week Attends [employer] Services: Never Active Member of Clubs or [...] flaky. Patient does have superficial abrasions noted tobilateral lower extremities from itching. No erythema discharge [...] increased knee flexed. Diagnoses: 1. Diabetic foot ([facility]) Segmental Doppler Lower Extremity Arterial 2. PVD (peripheral vascular disease) ([facility]) Segmental Doppler Lower Extremity Arterial 3. Type 2 diabetes mellitus with stage 3b chronic kidney disease, with long-term current use of insulin ([facility]) Segmental Doppler Lower Extremity Arterial 4. Claudication of lower extremity ([facility]) Segmental Doppler Lower Extremity Arterial 5. Tobacco [...] Foot & Ankle Surgery documented in this [id number] Evaluation + Plan note* Assessment & Plan Note - Phyllis Mae MD - 12/14/2023 6:56 PM EST Associated Problem(s): Non-pressure chronic ulcer of other part of right foot with fat layer exposed (CMS/HCC) Doing fine and stable with current management, continue same HAS F/U WITH AIR DRIER. [facility] Work Phone: [phone]) 793-877902-15-2024 Evaluation + Plan note* Assessment & Plan Note - Phyllis Mae MD - 12/14/2023 6:56 PM ESTAssociated Problem(s): Vascular myelopathies (CMS/HCC) stable with current management, continue same [facility] Work Phone: [phone]) 947-352302-15-2024 Evaluation + Plan note* Assessment & Plan Note - Phyllis Mae MD - 12/14/2023 6:56 PM ESTAssociated Problem(s): Depression, major, in remission (CMS/HCC) Doing fine and stable with current management, continue same [facility] Work Phone: [phone]) 379-991902-15-2024 Evaluation + Plan note* Assessment & Plan Note - Phyllis Mae MD - 12/14/2023 6:56 PM ESTAssociated Problem(s): Thoracic aortic aneurysm (TAA) (CMS/HCC) Doing fine and stable with current management, continue same [facility] Work Phone: [phone]) 771-933802-15-2024 Evaluation + Plan note* Assessment & Plan Note - Phyllis Mae MD - 12/14/2023 6:56 PM ESTAssociated Problem(s): Stage 3b chronic kidney disease (CMS/HCC) Doing fine and stable with current management, continue same HAS SAFETY ASSOCIATE F/U. 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 * Assessment & Plan Note - Phyllis Mae MD - 12/14/2023 6:56 PM EST Associated Problem(s): Vascular myelopathies (CMS/HCC) stable with current management, continue same * Assessment & Plan Note - Phyllis Mae MD - 12/14/2023 6:56 PM EST Associated Problem(s): Depression, major, in remission (CMS/HCC) Doing fine and stable with current management, continue same * Assessment & Plan Note - Phyllis Mae MD - 12/14/2023 6:56 PM EST Associated Problem(s): Thoracic aortic aneurysm (TAA) (CMS/HCC) Doing fine and stable with current management, continue same * Assessment & Plan Note - Phyllis Mae MD - 12/14/2023 6:56 PM EST Associated Problem(s): Stage 3b chronic kidney disease (CMS/HCC) Doing fine and stable with current management, continue same HAS SAFETY ASSOCIATE F/U. documented in this [facility] Work Phone: 1([phone]) 351-185202-15-2024 History of Present illness Narrative* Phyllis Mae MD - 12/14/2023 12:45 PM EST Subjective Patient ID: Stevo Germain is a 73 y.o. male who presents [...] complication, with long-term current use of insulin ([facility]/HCC) Dexcom G6 Sensor device Dexcom G6 Transmitter device Comprehensive Metabolic Panel Hemoglobin A1C 3. Gait difficulty Referral to Home Health 4. Muscle weakness of lower extremity Referral to Home Health 5. Recurrent falls Referral to Home Health 6. Centrilobular emphysema (CMS/HCC) nebulizer and compressor device nebulizers (VixOne Nebulizer-Adult Mask) [facility] 7. Screening for prostate cancer Prostate Specific [...] REFERRAL, . 2 MON documented [facility] Phone: [phone]) [phone] Instructions* Patient Instructions* Fior Forbes CNP - 10/18/2023 1:09 PM [...] Jardiance 10mg oral daily documented in this [id number] History of Present illness Narrative* Fior Forbes CNP - 10/18/2023 12:59 PM EST Images from the original note were not included. Patient ID: Stevo Germain is a 73 y.o. male 1950 Subjective: Stevo Germain presents for evaluation of Type 2 diabetes Patient has had diabetes for 16 years. Diagnosed in 2004 Patient has taken Insulin for 10-11 years. Patient has been following with Dr. Carmelita MD. Metformin stopped due to CRI. Mr. Germain is a 73-year-old male patient that presents today for follow-up in regards to his type 2diabetes. Patient currently takes basal insulin, he states that he checks blood sugars approximately once daily. Glucometer reviewed today. Hemoglobin A1c has remained stable at 8.6%. He was started on jardiance by his PCP since his last visit with us. Outpatient Medications Marked as Taking for the 10/18/23 encounter (Office Visit) with Karlie Forbes CNP: acetaminophen (TYLENOL) 325 MG tablet, [...] mouth daily as needed for allergies . lbmhfoqt-ysjg-HG-calcium-mins 9 mg iron-400 mcg Tab, Take 1 [...] past surgicalhistory and problem list. Objective: BP 135/83 Pulse [...] Negative Exam within last 12 months: yes Director Of Global Talent/Endoscopy Technican: [facility] Other Ophthalmologic Conditions: S/P Right cataract extraction [...] of CAD, PVD Follows routinely with: Dr. Bay, Biannual follow-up, saw KILN CAR UNLOADER 07/12/2023 Respiratory: Positive History of COPD, continues to smoke 1 ppd. Previously followed with Dr. Jesus Barksdale, will be seeing Dr. Michele or [place]. 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 Right 4thrd toe. Will be seeing podiatry soon, going to call with an appointment, with Dr Patel History of amputation: No right 2nd toe with scabbed area noted, previous ulcer to that toe had been healed. No significant redness/drainage or swelling noted. Thyroid: Lab Results Component Value Date TSH 2.97 10/04/2022 Negative Other: Follows with Dr. Branham for chronic anemia. Right hip fracture, repair [...] adjustments to his medication regimen based on hisevening readings. He was reminded his goal hemoglobin [...] Call if BG consistently <70 or >250. [phone] Patient has been checking blood glucoses 2 [...] Fior BAIRES 231:00 PM documented in this [id number] Instructions* Patient Instructions* Deshaun Rodrigues MD - 10/11/2023 1:23 PM EST Mr. Germain, We are going to get that CLIFFORD scan we talked about last time before we make any changes to help the tremors. Keep everything else the same for now. I did put a [facility] in [facility]. It was a pleasure taking care of you, and we all wish you the best of health. For concerns regarding medicines, adjusting doses or other questions: Call : [phone] (direct phone line to neurology staff) - leave a message if no one is available. (Note that [phone] is still listed on most of our paperwork and is a general line to the call pool in [place]; the number above is a faster way to get in touch with our staff here in [place]) [employer] [place] - the best way to send messages directly to your doctors, or request Drug Refills. Call [phone] to set up [employer] on your smart phone or computer. Mailing Address: Attn: Dr. Deshaun Rodrigues [facility] [id number], [facility] [address] Our documented in this [id number] History of Present illness Narrative* Deshaun Rodrigues MD - 10/11/2023 1:00 PM EST Neurology Follow Up Note [facility] Date of Service: 10/11/23 Service Type: Follow up, neurology Patient: Stevo Germain Date of : 1950 (73 y.o.) PCP: Phyllis Mae MD ASSESSMENT: Stevo Germain is a 73 y.o. man who presents for follow up of possible seizure episodes, tremor, and memory loss Seizure-like episodes: Reportedly had 2 lifetime possible seizures. One was just after a stroke, 10-15 years ago; the circumstances were unclear but it sounds like he was in severe renal failure at that time and was in theICU for several weeks on sedation so it could well have been provoked. Was never placed on AED at that time. He was referred to me after another more recent episode where he had intense coughing, followed by transient decreased responsiveness and generalized low-amplitude shaking lasting 20 secondswithout any incontinence, oral trauma, or post-ictal period. [...] consistent with mild cognitive impairment rather than fulldementia; we will continue to monitor. Given concerns for polypharmacy, and lack of impairment in function from the memory issues, holding off on cholinesterase inhibitor for now. History of stroke/carotid stenosis: He has generally recovered from prior stroke. Is on DAPT and statin appropriately. Follows with for carotid stenosis. Neuropathy: Mild to moderate [...] regarding treatment options, and diagnoses with Mr Germain and his and daughter. Answered questions and [...] procedures, imaging) and communicating and explaining results tothe patient/family/caregiver 3. Coordination of care; preparing and printing discharge instruction and any educational material for the patient and caregivers. Documenting clinical information in the electronic and other health records. Reviewing OARRS as needed. Deshaun Rodrigues MD Staff Neurologist [facility] [id number], [facility] [address] [facility] Fax: [phone] 10/11/23 Subjective Chief Complaint/Reason for Consult: seizure Informant(s): self, Initial History of Present Illness 06/16/22: Stevo Germain is a 73 y.o. man who reports [...] says it was a miracle he woke up.I am unclear what the seizure had to do with this exactly but he was never placed on antiepilepticsat that time. He was seizure free after [...] Arthritis, Carotid artery occlusion, CKD (chronic kidney disease),Closed displaced intertrochanteric fracture of right femur ([facility]) (03/08/2021), Closed fracture of left orbital floor ([facility]) (06/10/2020), Closed fracture of multiple ribs of left side (06/10/2020), COPD (chronic obstructive pulmonary disease) ([facility]), Diabetes mellitus ([facility]), Essential tremor, Fall down stairs (04/14/2020), History of pneumonia, Hyperlipidemia, Hypertension, Left carotid artery stenosis (03/30/2016), Leg cramps, Leg heaviness, MGUS (monoclonal gammopathy of unknown significance), Pe ptic ulcer disease, PVD (peripheral vascular disease) ([facility]), Rhabdomyolysis (2009), Statin intolerance (04/01/2019), and Stroke ([facility]) (2009). He has a past surgical history [...] tablet 1 tablet, Oral, 2 times daily withmeals clopidogreL (PLAVIX) 75 mg, Oral, Daily famotidine (PEPCID) 20 mg, Oral, 2 times daily fenofibrate (TRICOR) 145 mg, Oral, Daily, Give with food fluticasone propion-salmeteroL (ADVAIR DISKUS) 500-50 mcg/dose diskus inhaler 1 puff, Inhalation, 2times daily isosorbide mononitrate (IMDUR) 60 mg, Oral, Daily Jardiance 10 mg Tab 1 tablet, Oral, Daily Lantus Solostar U-100 Insulin 16 Units, Subcutaneous, 2 times daily loratadine (CLARITIN) 10 mg, Oral, Daily PRN ocfhpbzd-vmnw-EV-calcium-mins 9 mg iron-400 mcg Tab 1 tablet, [...] injection. Ears appear normal. No substantial sinus drainage.See below for vision/hearing Neck: Supple, no tenderness, [...] Absent NILESH Unable to Assess COORDINATION: Coordination Avmbms-dg-Ilyc: No obvious ataxia; possibly some mild intention tremor on top of existing action tremor Valdovinos Finger taps: Slightly clumsy bilaterally but worse on the left Coordination Qcmc-Mvfy-Xgjl: Limited by hip pain STANCE AND GAIT: [...] occlusion, prior R CEA patent, L ICA 50-69%stenosis, and an occlusion of the ostium of the left ECA with more distal reconstitution. Labs: CMP with stable CKD, Cr 1.7 (GFR 37). CBC with macrocytic anemia (Hgb 13.0), otherwise both studies unremarkable. LDL 67. Trig 509. B12 364. MMA WNL. A1c 8.8. documented in this [id number] History of Present illness Narrative* Phyllis Mae MD - 08/22/2023 1:00 PM EDT Subjective Patient ID: Stevo Germain is a 73 y.o. male who presents [...] Flu vaccine, quadrivalent, high-dose, preservative free, age 64y+(FLUZONE) 4. Chronic obstructive pulmonary disease, unspecified COPD [...] REFERRAL, . 1 mon [facility] Phone: 1(328) 588-530109-13-2023 Instructions* Patient Instructions* Katalina Marie MA - 07/12/2023 1:15 PM EDT How to Contact your Care Team: Provider: Dr. Aquiles Bay MD Gate Clerk: Urszula Aragon RN documented in this [id number] History of Present illness Narrative* Arianna Alfaro CNP - 07/12/2023 1:00 PM EDT General Cardiology Clinic Follow up Heart & Vascular [facility] 07/12/2023 Arianna Alfaro CNP [address] [facility] [address] Patient: Stevo Germain Date of : 1950 (73 y.o.) PCP: Phyllis Mae MD Chief Complaint: Routine follow up History of Present Illness: Stevo Germain is a 73 y.o. male with a PMH of CVA, seizure, CKD stage III, COPD, DM T2, HLD, HTN, PVD, carotid stenosis who follows with Dr Bay and last saw him May 2022. At that time he was seen after his eye doctor encouraged him to follow up for noted plaque in his eye. Patient had also c/oDOE, fatigue, atypical CP. Patient was not a good candidate for treadmill stress for he was in wheelchair and was felt to be high risk for Lexiscan nuclear stress given his recent history of seizure at that time. He had a Lexiscan nuclear back in 2019 which was negative for ischemia. Dr. Bay increased his propranolol dosing and updated an [...] chest discomfort which he attributes to musculoskeletal versusindigestion. He states it is the same pain that he has had for years. Denies any new or worsening chest discomfort. Has not had to use any nitroglycerin. Denies any worsening SOB or GREEN, he does haveCOPD and unfortunately continues to smoke. He is wheezy on exam, does have a nebulizer and inhalersat home. Does not require any oxygen use. He denies any lightheadedness, dizziness, palpitations, peripheral edema, weight gain or syncope. We reviewed his most recent cardiac testing. Patient deniesany acute questions or concerns on exam. Refills [...] of breath. Management per PCP Follow-up: Dr Bay 6 months or sooner PRN Review of [...] Closed displaced intertrochanteric fracture of right femur ([facility]) 03/08/2021 Closed fracture of left orbital floor ([facility]) 06/10/2020 Closed fracture of multiple ribs of left side 06/10/2020 COPD (chronic obstructive pulmonary disease) ([facility]) Diabetes mellitus ([facility]) TYPE 2 Essential tremor Fall down stairs 04/14/2020 History of pneumonia Hyperlipidemia Hypertension Left carotid artery stenosis 03/30/2016 Leg cramps Leg heaviness MGUS (monoclonal gammopathy of unknown significance) Peptic ulcer disease PVD (peripheral vascular disease) ([facility]) Rhabdomyolysis 2010 Statin intolerance 04/01/2019 ??? Rhabdomyolysis in past. Stroke ([facility]) 2010 R side Past Surgical History: Procedure [...] mcg/dose diskus inhaler Inhale 1 (one) puff 2(two) times a day . Lantus Solostar U-100 Insulin 100 unit/mL (3 mL) InPn Inject 16 (sixteen) Units under the skin 2 (two) times a day . loratadine (CLARITIN) 10 mg tablet Take 1 (one) tablet (10 mg total) by mouth daily as needed for allergies . njkkhhnf-mddl-KX-calcium-mins 9 mg iron-400 mcg Tab Take 1 [...] total) by mouth 2 (two) times a day. tamsulosin (FLOMAX) 0.4 mg capsule Take 1 [...] (one) tablet (20 mg total) by mouth daily. [DISCONTINUED] clopidogreL (PLAVIX) 75 mg tablet Take 1 (one) tablet (75 mg total) by mouth daily . [DISCONTINUED] fenofibrate 54 MG tablet Take 1 (one) tablet (54 mg total) by mouth daily Give with food . [DISCONTINUED] isosorbide mononitrate (IMDUR) 30 MG 24 hr tablet Take 2 (two) tablets (60 mg total)by mouth daily . [DISCONTINUED] propranoloL (INDERAL LA) 120 MG 24 hr capsule TAKE 1 (ONE) CAPSULE (120 MG TOTAL) BYMOUTH DAILY . [DISCONTINUED] doxycycline hyclate (VIBRAMYCIN) 100 MG capsule Take 1 (one) capsule (100 mg total) by mouth 2 (two) times a day . (Patient not taking: Reported on 07/12/2023 .) [DISCONTINUED] PARoxetine (PAXIL) 20 MG tablet Take 1 (one) tablet (20 mg total) by mouth daily . [DISCONTINUED] predniSONE (DELTASONE) 10 MG tablet TAKE 1 (ONE) TABLET (10 MG TOTAL) BY MOUTH DAILYWITH BREAKFAST START: 03/03/23. (Patient not taking: Reported on 07/12/2023 .) No current facility-administered medications on file prior to visit. documented in this [id number] Instructions* Patient Instructions* Deshaun Rodrigues MD - 04/05/2023 2:57 PM EDT Mr. Germain, Stop the labetalol. Decrease the Paxil to [...] adjusting doses or other questions: Call : [phone] (direct phone line to neurology staff) - leave a message if no one is available. (Note that [phone] is still listed on most of our paperwork and is a general line to the call pool in [place]; the number above is a faster way to get in touch with our staff here in [place]) MyChart Ramsey - the best way to send messages directly to your doctors, or request Drug Refills. Call [phone] to set up Linchpint on your smart phone or computer. Mailing Address: Attn: Dr. Deshaun Rodrigues [facility] [id number], [facility] [address] Our documented in this [id number] History of Present illness Narrative* Deshaun Rodrigues MD - 04/05/2023 2:30 PM EDT Neurology Follow Up Note [facility] Date of Service: 04/05/23 Service Type: Follow up, neurology Patient: Stevo Germain Date of : 1950 (73 y.o.) PCP: Phyllis Mae MD ASSESSMENT: Stevo Germain is a 73 y.o. man who presents for follow up of possible seizure episodes, tremor, and memory loss Seizure-like episodes: Reportedly had 2 lifetime possible seizures. One was just after a stroke, 10-15 years ago; the circumstances were unclear but it sounds like he was in severe renal failure at that time and was in theICU for several weeks on sedation so it [...] of cough, and the lack of any post- ictal period, makes epileptic seizure very unlikely. He [...] and has evidence of a mild peripheral neuropathy(diabetic vs renal vs alcohol-related in etiology) which [...] he ended up on both labetalol and propranololat one point, so we are going to stop the labetalol which could be contributing to excess fatigue and cognitive slowing. History of stroke/carotid stenosis: He has generally recovered from prior stroke. Is on DAPT and statin appropriately. Follows with for carotid stenosis. Neuropathy: Mild to moderate [...] regarding treatment options, and diagnoses with Mr Germain and his and daughter. Answered questions and [...] procedures, imaging) and communicating and explaining results tothe patient/family/caregiver 3. Coordination of care; preparing and printing discharge instruction and any educational material for the patient and caregivers. Documenting clinical information in the electronic and other health records. Reviewing OARRS as needed. Deshaun Rodrigues MD Staff Neurologist [facility] [address] [id number], [address] Fax: [phone] 04/05/23 Subjective Chief Complaint/Reason for Consult: seizure Informant(s): self Initial History of Present Illness 06/16/22: Stevo Germain is a 73 y.o. man who reports [...] says it was a miracle he woke up.I am unclear what the seizure had to do with this exactly but he was never placed on antiepilepticsat that time. He was seizure free after [...] Arthritis, Carotid artery occlusion, CKD (chronic kidney disease),Closed displaced intertrochanteric fracture of right femur (HCC) (03/08/2021), Closed fracture of left orbital floor (HCC) (06/10/2020), Closed fracture of multiple ribs of left side (06/10/2020), COPD (chronic obstructive pulmonary disease) ([facility]), Diabetes mellitus ([facility]), Essential tremor, Fall down stairs (04/14/2020), History of pneumonia, Hyperlipidemia, Hypertension, Left carotid artery stenosis (03/30/2016), Leg cramps, Leg heaviness, MGUS (monoclonal gammopathy of unknown significance), Pe ptic ulcer disease, PVD (peripheral vascular disease) ([facility]), Rhabdomyolysis (2009), Statin intolerance (04/01/2019), and Stroke ([facility]) (2009). He has a past surgical history [...] tablet 1 tablet, Oral, 2 times daily withmeals clopidogreL (PLAVIX) 75 mg, Oral, Daily doxycycline hyclate (VIBRAMYCIN) 100 mg, Oral, 2 times daily famotidine (PEPCID) 20 mg, Oral, 2 times daily fenofibrate 54 mg, Oral, Daily, Give with food fluticasone propion-salmeteroL (ADVAIR DISKUS) 500-50 mcg/dose diskus inhaler 1 puff, Inhalation, 2times daily isosorbide mononitrate (IMDUR) 60 mg, Oral, Daily Lantus Solostar U-100 Insulin 16 Units, Subcutaneous, Nightly loratadine (CLARITIN) 10 mg, Oral, Daily PRN efxhcppg-tszx-VE-calcium-mins 9 mg iron-400 mcg Tab 1 tablet, [...] injection. Ears appear normal. No substantial sinus drainage.See below for vision/hearing Neck: Supple, no tenderness, [...] Knowledge: Normal CRANIAL NERVES: II - Visual Umrphy: Normal II, III: Pupils: PERRL, no RAPD [...] Absent NILESH Unable to Assess COORDINATION: Coordination Debidw-tn-Ymkn: No obvious ataxia; possibly some mild intention tremor on top of existing action tremor Valdovnios Finger taps: Slightly clumsy bilaterally but worse on the left Coordination Izuc-Rtoh-Atgs: Limited by hip pain STANCE AND GAIT: [...] occlusion, prior R CEA patent, L ICA 50-69%stenosis, and an occlusion of the ostium of the left ECA with more distal reconstitution. Labs: CMP with stable CKD, Cr 1.9 (GFR 37). CBC with macrocytic anemia (Hgb 11.7), last A1c 6.9. documented in this [id number] Evaluation + Plan note* Assessment & Plan Note - Phyllis Mae MD - 03/07/2023 3:12 PM EDT Associated Problem(s): Other fracture of base of skull, initial encounter for closed fracture (CMS/HCC) (Resolved 03/07/2023) STABLE. [facility] Work Phone: [phone]) 874-143905-09-2023 Evaluation + Plan note* Assessment & Plan Note - Phyllis Mae MD - 03/07/2023 3:12 PM EDTAssociated Problem(s): Vascular myelopathies (CMS/HCC) Doing fine and stable with current management, continue same [facility] Work Phone: [phone]) 441-117305-09-2023 Evaluation + Plan note* Assessment & Plan Note - Phyllis Mae MD - 03/07/2023 3:12 PM EDTAssociated Problem(s): Depression, major, in remission (CMS/HCC) Stable, continue same [facility] Work Phone: [phone] 189-111005-09-2023 Evaluation + Plan note* Assessment & Plan Note - Phyllis Mae MD - 03/07/2023 3:12 PM EDTAssociated Problem(s): Chronic stable angina (CMS/HCC) Doing fine and stable with current management, continue same [facility] Work Phone: [phone]) [phone] Miscellaneous Notes* Assessment & Plan Note - Phyllis Mae MD - 03/07/2023 3:12 PM EDTAssociated Problem(s): Other fracture of base of skull, initial encounter for closed fracture (CMS/HCC) (Resolved 03/07/2023) STABLE. * Assessment & Plan Note - Phyllis Mae MD - 03/07/2023 3:12 PM EDT Associated Problem(s): Vascular myelopathies (CMS/HCC) Doing fine and stable with current management, continue same * Assessment & Plan Note - Phyllis Mae MD - 03/07/2023 3:12 PM EDT Associated Problem(s): Depression, major, in remission (CMS/HCC) Stable, continue same * Assessment & Plan Note - Phyllis Mae MD - 03/07/2023 3:12 PM EDT Associated Problem(s): Chronic stable angina (CMS/HCC) Doing fine and stable with current management, continue same documented in this [facility] Work Phone: [phone]) 105-817105-09-2023 History of Present illness Narrative* Phyllis Mae MD - 03/07/2023 1:30 PM EDT Subjective Patient ID: Stevo Germain is a 72 y.o. male who presents for Hospital Follow- up (F/U HOSPITAL DISCHARGE [facility] 02/27/23 - COPD EXACERBATION, LEFT RIB PAIN. ). HPI F/U AFTER 4 DAYS OF HOSPITAL STAY LAST WEEK FOR COPD EXACERBATIONS, B/L RIB PAIN , S/P FALL (WHILE WAS GOING TO BATHROOM DURING SLEEP). COPD IS IMPROVING BUT STILL HAS B/L RIB PAIN 4-03/08. HAD LABS ,CXR , CT ANGIO OF CHEST AND EKG [...] REFERRAL, . 2 WEEKS documented in this [facility] Work Phone: 1(739) 274-598708-18-2022 Instructions* Patient Instructions* Deshaun Rodrigues MD - 06/16/2022 1:30 PM EDT Mr. Germain, We are seeing you for a possible [...] adjusting doses or other questions: Call : [phone] (direct phone line to neurology staff) - leave a message if no one is available. (Note that [phone] is still listed on most of our paperwork and is a general line to the call pool in [place]; the number above is a faster way to get in touch with our staff here in [place]) [employer]Te[employer] [facility] - the best way to send messages directly to your doctors, or request Drug Refills. Call [phone] to set up PurpleTeal on your smart phone or computer. Mailing Address: Attn: Dr. Deshaun Rodrigues [id number], [facility] [address] Our documented in this [id number] History of Present illness Narrative* Deshaun Rodrigues MD - 06/16/2022 1:00 PM EDT Neurology New Consult Note [facility] Date of Service: 06/16/22 Service Type: New Patient consultation Patient: Stevo Germain Date of : 1950 (72 y.o.) Referring Provider: Refer to consult order in electronic medical record PCP: Phyllis Mae MD ASSESSMENT: Stevo Germain is a 72 y.o. man who presents for possible seizure; primary concern is tremors. Reportedly had 2 lifetime possible seizures. One was just after a stroke, 10-15 years ago; the circumstances were unclear but it sounds like he was in severe renal failure at that time and was in theICU for several weeks on sedation so it [...] of cough, and the lack of any post- ictal period, makes epileptic seizure very unlikely. He [...] and has evidence of a mild peripheral neuropathy(diabetic vs renal vs alcohol-related in etiology) which [...] they deny ever trying. Will have to renallydose carefully. He has failed propranolol at an [...] on DAPT and statin appropriately. Follows with for carotid stenosis. Problems addressed in this [...] regarding treatment options, and diagnoses with Mr Germain and his and daughter. Answered questions and [...] procedures, imaging) and communicating and explaining results tothe patient/family/caregiver 3. Coordination of care; preparing and printing discharge instruction and any educational material for the patient and caregivers. Documenting clinical information in the electronic and other health records. Reviewing OARRS as needed. Deshaun Rodrigues MD Staff Neurologist [facility] [id number], [facility] [address] [facility] Fax: [phone] 06/16/22 Subjective Chief Complaint/Reason for Consult: seizure Informant(s): self History of Present Illness: Stevo Germain is a 72 y.o. man who reports [...] says it was a miracle he woke up.I am unclear what the seizure had to do with this exactly but he was never placed on antiepilepticsat that time. He was seizure free after [...] Arthritis, Carotid artery occlusion, CKD (chronic kidney disease),Closed fracture of left orbital floor ([facility]) (06/10/2020), Closed fracture of multiple ribs of left side (06/10/2020), COPD (chronic obstructive pulmonary disease) ([facility]), Diabetes mellitus ([facility]), Essen tial tremor, Fall down stairs (04/14/2020), History of pneumonia, Hyperlipidemia, Hypertension, Left carotid artery stenosis (03/30/2016), Leg cramps, Leg heaviness, MGUS (monoclonal gammopathy of unknown significance), Peptic ulcer disease, PVD (peripheral vascular disease) ([facility]), Rhabdomyolysis (2 010), Statin intolerance (04/01/2019), and Stroke ([facility]) (2009). He has a past surgical history that includes Hand surgery (Right, 2008); carotid angio (2009); pr thromboendartectmy neck,neck incis (Right, 2009); Shoulder open rotator cuff repair (Left, 2014); andIm Nailing Femur (Right, 04/07/2021). He family history [...] tablet 1 tablet, Oral, 2 times daily withmeals clopidogreL (PLAVIX) 75 mg, Oral, Daily famotidine (PEPCID) 20 mg, Oral, 2 times daily fenofibrate 54 mg, Oral, Daily, Give with food fluticasone propion-salmeteroL (ADVAIR DISKUS) 500-50 mcg/dose diskus inhaler 1 puff, Inhalation, 2times daily isosorbide mononitrate (IMDUR) 60 mg, Oral, Daily lancets Misc Use as directed QID. E11.65 on QID insulin regimen Lantus Solostar U-100 Insulin 16 Units, Subcutaneous, Nightly loratadine (CLARITIN) 10 mg, Oral, Daily PRN ejgtytlo-hshl-YJ-calcium-mins 9 mg iron-400 mcg Tab 1 tablet, [...] injection. Ears appear normal. No substantial sinus drainage.See below for vision/hearing Neck: Supple, no tenderness, [...] Absent NILESH Unable to Assess COORDINATION: Coordination Hfgriy-yp-Sriv: No obvious ataxia; possibly some mild intention tremor on top of existing action tremor Valdovinos Finger taps: Slightly clumsy bilaterally Coordination Poyy-Dhde-Gaxg: Limited by hip pain STANCE AND GAIT: [...] on the right leg but better on theleft. Gait Aid Used During Exam: Straight cane Gait Assistance Required During Exam: Significant MOVEMENT DISORDERS EXAMINATION: Tremor - Mixed action and resting tremor, which is amplitude about 1 cm or less, fairly high frequency, roughly symmetric in both hands. There is a frequent no- no head tremor as well. Bradykinesia - Decreased [...] occlusion, prior R CEA patent, L ICA 50-69%stenosis, and an occlusion of the ostium of the left ECA with more distal reconstitution. Labs: CMP with stable CKD, Cr 1.9 (GFR 37). CBC with macrocytic anemia (Hgb 11.7), last A1c 6.9. documented in this [id number] History of Present illness Narrative* Erica Gardner PA-C - 06/10/2022 11:21 AM EDT Images from the original note were not included. Patient ID: Stevo Germain is a 72 y.o. male 1950 Subjective: Stevo Germain presents for evaluation of Type 2 diabetes Patient has had diabetes for 16 years. Diagnosed in 2004 Patient has taken Insulin for 10-11 years. Patient has been following with Dr. Carmelita MD. Mr. Germain is a 72-year-old male patient that presents today for follow-up in regards to his type 2diabetes. Patient currently takes basal insulin, he states that he checks blood sugars approximately twice daily. Glucometer reviewed today. He denies any blood sugars less than 80 at this time. Patient's hemoglobin A1c has remained stable at 6.9%. Of note, patient states he recently had seizure-like activity that sent him to the ED on 05/24/2022.Patient states they found no acute findings as [...] by mouth daily as needed for allergies. ggcxboox-dhcs-TZ-calcium-mins 9 mg iron-400 mcg Tab, Take 1 [...] past surgicalhistory and problem list. Objective: BP 116/66 Pulse [...] disease, with long-term current use of insulin ([facility]) Hemoglobin A1c Comprehensive Metabolic Panel TSH T4, [...] Negative Exam within last 12 months: yes Director Of Global Talent/Endoscopy Technican: Dr. Lepe Other Ophthalmologic Conditions: S/P Right [...] of CAD, PVD Follows routinely with: Dr. Bay, last seen in 03/2020. Biannual follow-up Respiratory: Positive History of COPD, continues to smoke 1 ppd. Previously followed with Dr. Jesus Barksdale, will be seeing Dr. Michele or [place]. Vascular: Positive History of CVA 2009 Feet: Follows with Podiatry: No Packing Line Worker: History of foot ulceration: No History of amputation: No Thyroid: Lab Results Component Value Date TSH 2.51 12/14/2021 Negative Other: Follows with Dr. Branham for chronic anemia. Right hip fracture, repair [...] Call if BG consistently <70 or >250. [phone] Patient has been checking blood glucoses 2 [...] PA-C 06/10/22 12:25 PM documented in this [id number] Evaluation + Plan note* Assessment & Plan Note - Aquiles Bay MD - 06/04/2022 9:06 AM EDT Associated Problem(s): GREEN (dyspnea on exertion) Reviewed. [id number] Miscellaneous Notes* Assessment & Plan Note - Aquiles Bay MD - 06/04/2022 9:06 AM EDTAssociated Problem(s): GREEN (dyspnea on exertion) Reviewed. documented in this [id number] History of Present illness Narrative* Aquiles Bay MD - 06/02/2022 3:58 PM EDT [facility] [address] [facility] [address] [facility] [address] Subjective: Stevo Germain is a 72 y.o. male seen in [...] reviewed tells me is on aspirin baby aspirinas well as the Plavix. Overview of Problems [...] III Closed fracture of left orbital floor ([facility]) 06/10/2020 Closed fracture of multiple ribs of left side 06/10/2020 COPD (chronic obstructive pulmonary disease) ([facility]) Diabetes mellitus ([facility]) TYPE 2 Essential tremor Fall down stairs 04/14/2020 History of pneumonia Hyperlipidemia Hypertension Left carotid artery stenosis 03/30/2016 Leg cramps Leg heaviness MGUS (monoclonal gammopathy of unknown significance) Peptic ulcer disease PVD (peripheral vascular disease) ([facility]) Rhabdomyolysis 2010 Statin intolerance 04/01/2019 ??? Rhabdomyolysis in past. Stroke ([facility]) 2010 R side Past Surgical History: Procedure [...] 4(four) hours as needed for wheezing . ASPIRIN [...] MCG/DOSE DISKUS INHALER Inhale 1 puff 2 (two)times a day . ISOSORBIDE MONONITRATE (IMDUR) 30 MG 24 HR TABLET Take 2 (two) tablets (60 mg total) by mouth daily. LABETALOL (NORMODYNE) 100 MG TABLET Take 1 [...] by mouth daily as needed for allergies. RCVBDTDM-HSXX-LQ-CALCIUM-MINS 9 MG IRON-400 MCG TAB Take 1 [...] in about 6 months (around 12/03/2022). Aquiles Bay MD * Kiana Cheatham MA - 06/02/2022 3:41 PM EDT Review of Systems Constitutional: Positive for malaise/fatigue. Cardiovascular: Positive for chest pain and dyspnea on exertion. Negative for leg swelling and palpitations. Neurological: Negative for dizziness. documented in this [id number] Instructions* Patient Instructions* Kiana Cheatham MA - 06/02/2022 3:31 PM EDT How to Contact your Care Team: Provider: Dr. Aquiles Bay MD Gate Clerk: Urszula Aragon RN REFILLS: When in need for refills please call your care team or the office at [phone]. Please include medication name, pharmacy name, and specify 30-day or 90-day supply. Please check with your pharmacy within 24 hours of request for your refill. You must follow up as directed to continue current refills. Thank you! documented in this [id number] History of Present illness Narrative* Santana Orosco PA-C - 01/10/2022 12:51 PM EDT Images from the original note were not included. Patient ID: Stevo Germain is a 71 y.o. male 1950 Subjective: Stevo Germain presents for evaluation of Type 2 diabetes Patient has had diabetes for 16 years. Diagnosed in 2004 Patient has taken Insulin for 10-11 years. Patient has been following with Dr. Carmelita MD. Mr. Germain is a 71-year-old male patient that presents today for follow-up in regards to his type 2diabetes. Patient currently takes basal insulin, he states [...] by mouth daily as needed for allergies. hpawmqbn-dgqu-CN-calcium-mins 9 mg iron-400 mcg Tab, Take 1 tablet by mouth daily . nitroGLYCERIN (NITROSTAT) 0.4 MG SL tablet, Place 0.4 mg under the tongue every 5 (five) minutes asneeded for chest pain . pantoprazole (PROTONIX) 40 [...] past surgicalhistory and problem list. Objective: BP 123/78 Pulse [...] disease, with long-term current use of insulin ([facility]) Comprehensive Metabolic Panel Hemoglobin A1c Type 2 [...] Negative Exam within last 12 months: yes Director Of Global Talent/Endoscopy Technican: Dr. Lepe Other Ophthalmologic Conditions: S/P Right [...] of CAD, PVD Follows routinely with: Dr. Bay, last seen in 03/2020. Biannual follow-up Respiratory: Positive History of COPD, continues to smoke 1 ppd. Previously followed with Dr. Jesus Barksdale, will be seeing Dr. Michele or Delta. Vascular: Positive History of CVA 2009 Feet: Follows with Podiatry: No Packing Line Worker: History of foot ulceration: No History of amputation: No Thyroid: Lab Results Component Value Date TSH 2.51 12/14/2021 Negative Other: Follows with Dr. Branham for chronic anemia. Right hip fracture, repair [...] Call if BG consistently <70 or >250. [phone] Patient has been checking blood glucoses 2 [...] A1c Electronically signed by: Santana Orosco PA-C, [facility] 01/10/22 12:55 PM documented in this [id number] History of Present illness Narrative* Dylon Galindo MD - 09/09/2021 6:10 PM EST (Incomplete)This note is in progress. Dictation on: 09/09/2021 6:10 PM by: DYLON GALINDO [[id number]] documented in this [id number] History of Present illness Narrative* David Waters CNP - 08/03/2021 11:37 AM EDT Images from the original note were not included. Patient ID: Stevo Germain is a 71 y.o. male 1950 Subjective: Stevo Germain presents for evaluation of Type 2 diabetes Patient has had diabetes for 16 years. Diagnosed in 2004 Patient has taken Insulin for 10-11 years. Patient has been following with Dr. Carmelita MD. Mr. Germain is a 70-year-old male patient that presents today for follow-up in regards to his type 2diabetes. Patient currently takes basal insulin, He states [...] by mouth daily as needed for allergies. grahlupn-khqf-ZB-calcium-mins 9 mg iron-400 mcg Tab, Take 1 tablet by mouth daily . NIFEdipine (ADALAT CC) 30 MG 24 hr tablet, Take 1 (one) tablet (30 mg total) by mouth daily . nitroGLYCERIN (NITROSTAT) 0.4 MG SL tablet, Place 0.4 mg under the tongue every 5 (five) minutes asneeded for chest pain . pantoprazole (PROTONIX) 40 [...] surgicalhistory and problem list. Objective: BP (!) 155/81 [...] within last 12 months: yes Date: 11/18 Director Of Global Talent/Endoscopy Technican: Dr. Lepe Other Ophthalmologic Conditions: S/P Right [...] of CAD, PVD Follows routinely with: Dr. Bay, last seen in 03/2020. Biannual follow-up Respiratory: Positive History of COPD, continues to smoke 1 ppd. Previously followed with Dr. eJsus Barksdale, will be seeing Dr. Michele or Delta. Vascular: Positive History of CVA 2009 Feet: Last foot exam: 08/03/21 Follows with Podiatry: No Packing Line Worker: History of foot ulceration: No History of amputation: No Thyroid: Lab Results Component Value Date TSH 1.56 04/28/2021 Negative Other: Follows with Dr. Branham for chronic anemia. Right hip fracture, repair with TFN nail 04/07/21. Plan: 1. Rx changes: Continue current regimen Lantus insulin: 16 units at bedtime Patient denies any recent hypoglycemia but based off his hemoglobin A1c I am concerned he is havingany without knowing. Patient was instructed to continue [...] Call if BG consistently <70 or >250. [phone] Patient has been checking blood glucoses 2 [...] CNP 08/03/21 11:44 AM documented in this [id number] History of Present illness Narrative* Dylon Galindo MD - 05/21/2021 5:59 PM EDT Dictation on: 05/21/2021 6:00 PM by: DYLON GALINDO [[id number]] documented in this [id number] Miscellaneous Notes* Paola Murray - Richardson Lema RN - 05/11/2021 1:53 PM EDT Reviewing AVS and patients . Stated pharmacy incorrect. Called Dr. Alvarez to edit medicationsand pharmacy. Made adjustments while on the phone with this RN. Will wait for updated AVS and review with patient and . * [facility] - Vonda Herrera OTA - 05/11/2021 10:10 AM EDT OCCUPATIONAL THERAPY VISIT VARIANCE NOTE Attempted to see patient at this time, but unable secondary to: Refused. Pt reported he was discharging home this date and denied any needs. Will follow up as appropriate. * Paola Murray - Richardson Lema RN - 05/11/2021 9:50 AM EDT Encouraged patient to sit at side of bed and or get in chair to eat breakfast. Patient declined at this time. * Plan of Care - Shailesh Rachel, RN - 05/10/2021 10:14 AM EDT Problem: Actual or potential alteration in health [...] Goal: Absence of falls Outcome: Partially Met * Plan of Radha Delgadillo RN - 05/10/2021 5:26 AM EDT Problem: Actual or potential alteration in health [...] Goal: Absence of falls Outcome: Partially Met * Plan of [place] - Judi Sorto RN - 05/09/2021 12:31 PM EDT Problem: Actual or potential alteration in health [...] Goal: Absence of falls Outcome: Partially Met * Plan of Care - Radha Barksdale RN - 05/09/2021 12:18 AM EDT Problem: Actual or potential alteration in health [...] Goal: Absence of falls Outcome: Partially Met * Plan of Care - Jenny Umana RN - 05/08/2021 3:22 PM EDT Problem: Actual or potential alteration in health [...] Goal: Absence of falls Outcome: Partially Met * Plan of Care - Maira Daigle RN - 05/07/2021 5:54 PM EDT Problem: Actual or potential alteration in health [...] Goal: Absence of falls Outcome: Partially Met * [place] [facility] [place] - Angelina Nichols RN - 05/07/2021 4:12 AM EDT Problem: Actual or potential alteration in health [...] of comfort function goal Outcome: Partially Met * Plan of [place] - Maira Daigle RN - 05/06/2021 11:14 AM EDT Problem: Actual or potential alteration in health [...] Goal: Knowledge of Enviroment Outcome: Partially Met * Josue - Silvia Baum RN - 05/06/2021 7:08 AM EDT Problem: Actual or potential alteration in health [...] of comfort function goal Outcome: Partially Met * Plan of Care - Maira Daigle RN - 05/05/2021 4:18 PM EDT Problem: Actual or potential alteration in health [...] of comfort function goal Outcome: Partially Met * Plan of Care - Radha Barksdale RN - 05/05/2021 12:15 AM EDT Problem: Actual or potential alteration in health [...] Goal: Absence of falls Outcome: Partially Met * Plan of Care - Silvia Denney RN - 05/04/2021 10:39 AM EDT Problem: Actual or potential alteration in health Goal: Absence of healthcare acquired conditions Outcome: Partially Met Goal: Knowledge of Interdisciplinary Plan of Care Outcome: Partially Met Goal: Knowledge of Enviroment Outcome: Partially Met * Plan of Care - Silvia Baum RN - 05/04/2021 6:35 AM EDT Problem: Actual or potential alteration in health [...] of Goal: Absence of falls Outcome: Met * Plan of Care - Lexii Ac RN - 05/03/2021 4:55 PM EDT Problem: Actual or potential alteration in health [...] Goal: Absence of falls Outcome: Partially Met * Assessment & Plan Note - Bryce Alvarez MD - 05/03/2021 10:24 AM EDT Associated Problem(s): Acute renal failure superimposed on stage 3a chronic kidney disease (HCC) Patient's ultrasound showed only modest post residual urine. Patient's renal functions remained stable potassium is stable * Plan of Care - Vonda Guidry RN - 05/03/2021 12:12 AM EDT Problem: Actual or potential alteration in health [...] Goal: Absence of falls Outcome: Partially Met * Quick Note - Richardson Lema RN - 05/02/2021 3:48 PM EDT Encouraged patient to get up in chair. Declines wanting to get in chair. States "maybe later". * Plan of Care - Richardson Lema RN - 05/02/2021 10:49 AM EDT Problem: Actual or potential alteration in health Goal: Absence of healthcare acquired conditions Outcome: Partially Met Goal: Knowledge of Interdisciplinary Plan of Care Outcome: Partially Met Goal: Knowledge of Enviroment Outcome: Partially Met * Plan of Care - Vonda Guidry RN - 05/02/2021 1:38 AM EDT Problem: Actual or potential alteration in health [...] Goal: Absence of falls Outcome: Partially Met * Plan of Care - Adan Sewell RN - 05/01/2021 5:32 PM EDT Problem: Actual or potential alteration in health [...] Goal: Absence of falls Outcome: Partially Met * Quick Note - Adan Sewell RN - 05/01/2021 4:15 PM EDT Pt's diego removed per order. * Assessment & Plan Note - Bryce Alvarez MD - 05/01/2021 8:49 AM EDT Associated Problem(s): Chronic obstructive pulmonary disease (HCC) Stable * Plan of Care - Vonda Guidry RN - 05/01/2021 2:20 AM EDT Problem: Actual or potential alteration in health [...] of comfort function goal Outcome: Partially Met * Plan of Care - Fadumo Cespedes OT - 04/30/2021 9:48 AM EDT Occupational Therapy Plan of Care Certification Note [...] 2.) [facility] * Plan of Care - Rachel Bridges RN - 04/30/2021 9:44 AM EDT Problem: Actual or potential alteration in health [...] Goal: Absence of falls Outcome: Partially Met * Plan of Care - Annita Camacho, JEFFREY - 04/30/2021 9:21 AM EDT Physical Therapy Plan of Care Certification Note Coded Admission Diagnosis Metabolic encephalopathy [G93.41] Hyperkalemia [E87.5] Acute UTI [N39.0] ELBA (acute kidney injury) ([facility]) [N17.9] H/O: CVA (cerebrovascular accident) [Z86.73] Acute [...] is discharged from the acute care hospital * Plan of Care - Ryne Malin RN - 04/30/2021 2:21 AM EDT Problem: Actual or potential alteration in health [...] Goal: Absence of falls Outcome: Partially Met * Assessment & Plan Note - Bryce Alvarez MD - 04/29/2021 6:43 PM EDT Associated Problem(s): Type 2 diabetes mellitus with stage 3b chronic kidney disease, with long-term current use of insulin (HCC) Blood sugar is stable. * Assessment & Plan Note - Bryce Alvarez MD - 04/29/2021 6:41 PM EDT Associated Problem(s): Urinary retention Confirmed by post void residual. As Diego is out now we will check post residual volume by ultrasound. * Assessment & Plan Note - Bryce Alvarez MD - 04/29/2021 6:41 PM EDT Associated Problem(s): Urinary tract infection associated with indwelling urethral catheter (HCC) Resolved. * Assessment & Plan Note - Bryce Alvarez MD - 04/29/2021 6:41 PM EDT Associated Problem(s): Anemia due to stage 3a chronic kidney disease (HCC) Hemoglobin stable. * Assessment & Plan Note - Bryce Alvarez MD - 04/29/2021 6:40 PM EDT Associated Problem(s): Essential hypertension Blood pressure is better. * Assessment & Plan Note - Bryce Alvarez MD - 04/29/2021 6:38 PM EDT Associated Problem(s): Sepsis with acute renal failure without septic shock (HCC) Present on admission now resolved. Off of antibiotics. * Plan of Care - Rachel Bridges RN - 04/29/2021 9:44 AM EDT Problem: Actual or potential alteration in health [...] Goal: Absence of falls Outcome: Partially Met * Quick Note - Melissa Collins MD - 04/29/2021 9:24 AM EDT Noted urine culture 04/27 growing MRSA- will add vancomycin Continue IV zosyn onemore day till blood and urine cultures finalized Noted patient's PCP is dr Pennington, will notify him to assume care. [facility] state group will sign off. * Plan of Care - Radha Barksdale RN - 04/29/2021 1:12 AM EDT Problem: Actual or potential alteration in health [...] Goal: Absence of falls Outcome: Partially Met * Plan of Care - Keesha Ac RN - 04/28/2021 12:51 PM EDT Problem: Actual or potential alteration in health [...] of comfort function goal Outcome: Partially Met * Quick Note - Chuck John RRT - 04/27/2021 4:05 PM EDT VBG handed to dr stockton documented in this [id number] History of Present illness Narrative* Manohar Shaw RN - 05/11/2021 10:46 AM EDT COMPLEX DISCHARGE Date: 05/11/2021 Time: 10:46 AM Patient Name: Stevo Germain Date of : 1950 Sex: Male Patient Information Primary Caregiver: Other (Comment) ([facility]) Patient and spouse wanting patient discharged home today with home health care. Set up with [facility] by kitman Anya. Ambulatory orders in and signed, updated nursing Source of Information: Patient, Significant Other Living Arrangements: Facility Support Systems: Spouse/significant other Assistance Needed: Moderate Type of Residence: long-term Care Facility Name: [facility] Prior to Admission Home Care Services: Yes Type of Current Home Care Services: Home health care Patient expects to be discharged to:: [facility] Does the patient need discharge transport arranged?: Yes [facility] Disposition D/C Disposition: Usp Facility Agency/Destination: [facility] Estimated Length of Stay (ELOS): 16 ELOS Discussed with Patient / Family?: Yes Post-Acute Patient Choice 1: [facility] Post-Acute Patient Choice 2: [facility] How did you provide the Post Acute Choices: Electronically sent Regulatory Documentation: Medicare IM Regulatory Documentation Status: Signed Signed: Self * Anya Johnson - 05/11/2021 10:16 AM EDT DISCHARGE PLAN PROGRESS NOTE Date: 05/11/2021 Time: 10:16 AM Patient Name: Stevo Germain Date of : 1950 Sex: Male Communicated with patient's spouse Isabelle, who chose 1-[facility], 2-[facility]. Referral(s) sent, awaiting follow-up. Gate Clerk Interactive Designer communicated with Raegan with [facility] who reports acceptance. No pre-cert required. Button Breaker Operator and Gate Clerk, JAYDEN Juan and Kiran RN CM, updated via Secure Chat. [facility] Disposition D/C Disposition: Usp Facility Agency/Destination: [facility] Estimated Length of Stay (ELOS): 16 ELOS Discussed with Patient / Family?: Yes Post-Acute Patient Choice 1: [facility] Post-Acute Patient Choice 2: [facility] How did you provide the Post Acute Choices: Electronically sent Regulatory Documentation: Medicare IM Regulatory Documentation Status: Signed Signed: Self Anticipated Discharge Plan Anticipated HME: None Anticipated Home Care Needs: None Anticipated Facility Type: longterm facility * AbbyKayla CINDY Tate - 05/10/2021 2:15 PM EDT Occupational Therapy OCCUPATIONAL THERAPY TREATMENT NOTE Based on current status, anticipate need for new goal(s) to be created. Will communicate with OTR/Lfor updated POC. Skilled Therapy Needs After Discharge [...] demonstrating improvements since OT evaluation. If pt woulddischarge home 22/05 supervision recommended. Outcomes Measures Prior [...] assist Sit to Supine: Stand by assist Director Online Marketing: bedrails Functional Transfers Sit to Stand: Stand by assist Bed to Chair Transfers: Stand by assist Toilet Transfers: Stand by assist Director Online Marketing: wheeled walker Skilled Intervention Provided: verbal cues, [...] Home Living: [place]hab [place] a hip fracture sustained~ 1 month ago. pt [facility] Prior Level of Function Receives Help From: Spouse Level of White - Transfers/Ambulation/Mobility: Independent with functional transfers, Independent with household ambulation, Independent with community ambulation Level of White - ADLs: Independent Level of White - Homemaking: Independent Driving: Patient does not [...] completion of Occupational Therapy Plan of Care. * Himanshu Philippe, LINING REPAIRER - 05/10/2021 2:07 PM EDT Physical Therapy PHYSICAL THERAPY TREATMENT NOTE Skilled [...] assist Stand Pivot Transfers: Contact guard assist Director Online Marketing: wheeled walker Pt educated on safe transfer [...] Home Living: pt was at rehab [place] for a hip fracture sustained~ 1 month ago. pt came to [facility] Prior Level of Function Receives Help From: Spouse Level of White - Transfers/Ambulation/Mobility: Independent with functional transfers, Independent with household ambulation, Independent with community ambulation Level of White - ADLs: Independent Level of White - Homemaking: Independent Driving: Patient does not [...] completion of Physical Therapy Plan of Care. * Yessica Luna, HOG CONFINEMENT SYSTEM MANAGER ACUPUNCTURE PHYSICIAN - 05/10/2021 12:54 PM EDT DISCHARGE PLAN PROGRESS NOTE Date: 05/10/2021 Time: 12:54 PM Precert remains pending for [facility]. No updated therapy notes to send at this time. [id number]- Spoke with spouse Isabelle. Isabelle confirmed plan will be for home with home health care. [facility]. Isabelle stepped out so [employer] list was texted to her. This worker's contact number listed for return call. Secure chat sent to Dr. Alvarez with an update. Updated Kiran healthcare business analyst, via secure chat. Brii with [facility] notified. Patient Name: Stevo Germain Date of : 1950 Sex: Male [facility] Disposition D/C Disposition: Usp Facility Agency/Destination: [facility] Estimated Length of Stay (ELOS): 16 ELOS Discussed with Patient / Family?: Yes Regulatory Documentation: Medicare IM Regulatory Documentation Status: Certified (LETTER LEFT FOR SLEEPING PT) Anticipated Discharge Plan Anticipated HME: None Anticipated Home Care Needs: None Anticipated Facility Type: longterm facility * Don Pennington MD - 05/10/2021 8:50 AM EDT Patient was admitted from the local retirement with urinary tract infection treated and stable Waiting to go to back to the retirement for recertification Patient is a posterior right hip fracture repair underwent physical therapy and patient is says he is going to bathroom but uses urinals at the bedside Hypertension under reasonable control on Procardia and labetalol Hyperlipidemia on treatment Physical examination findings unchanged Stable overall no new findings Plan waiting to go to retirement. * Bryce Alvarez MD - 05/09/2021 10:27 AM EDT Internal medicine Inpatient Follow-up 05/09/2021 Bryce Alvarez MD [facility] Patient: Stevo Germain Date of : 1950 (71 y.o.) PCP: Phyllis Mae MD ASSESSMENT/PLAN: Stevo Germain 71 y.o. male Sepsis with acute renal [...] disease, with long-term current use of insulin ([facility]) Assessment & Plan Blood sugar is stable. Essential hypertension Assessment & Plan Blood pressure is better. Anemia due to stage 3a chronic kidney disease (HCC) Assessment & Plan Hemoglobin stable. Urinary tract infection associated with indwelling urethral catheter ([facility]) Assessment & Plan Resolved. Urinary retention Assessment & Plan Confirmed by post void residual. As Diego is out now we will check post residual volume by ultrasound. Chronic obstructive pulmonary disease (HCC) Assessment & Plan Stable Summary of assessment and Plan patient's renal functions remained stable overall patient is stable. Plan whenever bed is available/insurance pre-CERT goes through patient will be discharged to retirement for physical therapy. SUBJECTIVE: History Since Last Visit: Patient has no complaints. Review of Systems: Review of Systems Constitutional: Negative for activity change, appetite change, chills, diaphoresis, fatigue, fever and unexpected weight change. HENT: Negative for congestion. Eyes: Negative for visual disturbance. Respiratory: Negative for apnea, cough, choking, chest tightness, shortness of breath, wheezing andstridor. Cardiovascular: Negative for chest pain, palpitations and [...] 05/09/21 10:27 AM: Laboratory, Medications and Transcriptions * Don Pennington MD - 05/08/2021 7:38 AM EDT Patient was treated for urinary sepsis and [...] will be able to go back to retirement hopefully [email or web address] Denies any other issues On examination vital signs blood pressure 126 x 49 mmHg heart rate is 68 temperature normal remainsin room air Rest of the examination remained stable and unchanged there is a pallor. Lab works hemoglobin 8.9 creatinine 1.66 * Vonda Herrera OTA - 05/07/2021 4:11 PM EDT Occupational Therapy OCCUPATIONAL THERAPY PROGRESS REPORT Pt's [...] guard assist Toilet Transfers: (declined to practice) Director Online Marketing: wheeled walker Skilled Intervention Provided: monitoring patient [...] unilateral RUE support, without UE support, retropulsive Director Online Marketing - Standing Dynamic: wheeled walker Loss of [...] Home Living: pt was [place] for [place] hip fracture sustained~ 1 month ago. pt came [facility] Prior Level of Function Receives Help From: Spouse Level of White - Transfers/Ambulation/Mobility: Independent with functional transfers, Independent with household ambulation, Independent with community ambulation Level of White - ADLs: Independent Level of White - Homemaking: Independent Driving: Patient does not [...] completion of Occupational Therapy Plan of Care. * Silvia Bran PTA - 05/07/2021 3:26 PM EDT Physical Therapy PHYSICAL THERAPY TREATMENT NOTE Skilled [...] Standing Balance - Static: Contact guard assist Director Online Marketing - Standing Static: wheeled walker Bed Mobility Rolling: Minimal assist, Modified independent Supine to Sit: Minimal assist Skilled Intervention Provided: verbal cues For: UE management, LE management Transfers Sit to Stand: Stand by assist Bed to Chair: Contact guard assist Stand Pivot Transfers: Contact guard assist Director Online Marketing: wheeled walker Skilled Intervention Provided: verbal cues [...] Home Living: pt was at [place]hab [place] for a hip fracture sustained~ 1 month ago. pt came to [facility] Prior Level of Function Receives Help From: Spouse Level of White - Transfers/Ambulation/Mobility: Independent with functional transfers, Independent with household ambulation, Independent with community ambulation Level of White - ADLs: Independent Level of White - Homemaking: Independent Driving: Patient does not [...] completion of Physical Therapy Plan of Care. * Mary Houston - 05/07/2021 1:05 PM EDT Spiritual Care Progress Note Completed by: Akhil Ventura Person(s) Present During this Visit: Patient, Spouse Time Spent in Direct Patient Care: 30 Narrative: Upon rounding, Stevo's spouse motions precision machinist to come into the room. Resource Management Planner enteredand listened while the spouse shared her concerns with Stevo's eventual departure and discharge from the hospital. The transition piece from the hospital to the retirement gives both spouse and Stevo anxiety. Spouse requested prayer for healing and for a smooth transition once leaving the hospital. Resource Management Planner provided prayer and emotional/spiritual support while spouse gave her narrative which included her aspirations of travel with Stevo upon his departure. Both expressed their gratitude for the medical team and their hospitality. Resource Management Planner provided an empathetic ear for Stevo as he also expressed his past medical history in the ED. In that story, Stevo emphasized the strong support system derived from his children. If still present until tomorrow,he looks forward to seeing his son, who has come in the past. The pastoral care team will continue to provide emotional/spiritual support as needed while Pearl at the hospital. Patient's Response to Pastoral Care: Appeared to be well-engaged, Expressed Gratitude for Visit, Visit said to have been helpful Planning for Future Visits: PRN, Pt aware to contact Resource Management Planner as needed 05/07/21 1220 Visit Background Visit With Patient;Spouse Visit By Student Resource Management Planner Visit Progression Follow-Up Visit Requested By Resource Management Planner Initiated Visit Source Resource Management Planner Initiated Visit Type Inpatient;Rounding Visit Circumstances and Events Routine Visit;Family Support Visit Length (minutes) 30 Patient's Response to Pastoral Care Appeared to be well-engaged;Expressed Gratitude for Visit;Visitsaid to have been helpful Visit Planning PRN;Pt aware to contact Resource Management Planner as needed Spiritual Assessment Not assessed during visit Methodist Assessment Assessed during this visit Family assessment provided? Assessed during this visit Patient Methodist Needs Assessment Methodist Connection Not Discussed Methodist Home Yarsanism Anglican Connection Synagogue Family Assessment Relationship to Patient Spouse Affect at Time of Visit Anxious;Open to Discussion;Tearful;Talkative;Pleasant;Worried Emotions Expressed During Visit Coping;Hopeful;Overwhelmed;Relies on Pia;Tired;Worried Expressed Concerns Regarding Patient Illness Additional Responsibilities;Concern about Patient/Outcome;Eubtk-[id number]-Axlc;Length of Stay;Life Review;Transition in Care Sources of Hope and Strength Comfort;Pia;Praying for Healing;Supportive of One Another Family / Friend's Support and Participation Active (Their children play a considerable part in their support) Grief Assessment Appropriately Coping Spiritual Assessment Seeking Healing/Wholeness Interventions - Family / Friend Resource Management Planner Support;Affirmation;Empathic Listening;Facilitated Story-Telling;Provided Comfort;Provided Prayer;Provided Spiritual Support Family / Friend Outcomes Expressed Gratitude;Open to Resource Management Planner Visit;Processed Tearfully;Processed Verbally;Reduced Anxiety;Verbalized Feelings Akhil Ventura Resource Management Planner Airplane Fueler [facility] 22/05 On-Call * Yessica Luna MSW LSW - 05/07/2021 10:41 AM EDT DISCHARGE PLAN PROGRESS NOTE Date: 05/07/2021 Time: 10:41 AM Patient is ready for discharge once precert is received. Precert remains pending at this time. Mostrecent therapy note from 05/06 was sent to [facility]. Patient Name: Stevo Germain Date of : 1950 Sex: Male [facility] Disposition D/C Disposition: Usp Facility Agency/Destination: [facility] Estimated Length of Stay (ELOS): 16 ELOS Discussed with Patient / Family?: Yes Anticipated Discharge Plan Anticipated HME: None Anticipated Home Care Needs: None Anticipated Facility Type: longterm facility * Bryce Alvarez MD - 05/07/2021 9:15 AM EDT Internal medicine Inpatient Follow-up 05/07/2021 Bryce Alvarez MD [facility] Patient: Stevo Germain Date of : 1950 (71 y.o.) PCP: Phyllis Mae MD ASSESSMENT/PLAN: Stevo Germain 71 y.o. male Sepsis with acute renal failure without septic shock (HCC) Assessment & Plan Present on admission now resolved. Off of antibiotics. * Acute renal failure superimposed on stage 3a chronic kidney disease (HCC) Assessment & Plan Patient's ultrasound showed only modest post residual urine however with increasing creatinine withpossible patient may need a Diego placed back and needs to be followed up with urology as outpatient. Will check postvoid residual again today. Type 2 diabetes mellitus with stage 3b chronic kidney disease, with long-term current use of insulin ([facility]) Assessment & Plan Blood sugar is stable. Essential hypertension Assessment & Plan Blood pressure is better. Anemia due to stage 3a chronic kidney disease ([facility]) Assessment & Plan Hemoglobin stable. Urinary tract infection associated with indwelling urethral catheter ([facility]) Assessment & Plan Resolved. Urinary retention Assessment & Plan Confirmed by post void residual. As Diego is out now we will check post residual volume by ultrasound. Chronic obstructive pulmonary disease ([facility]) Assessment & Plan Stable Summary of assessment and Plan patient overall stable after checking post void urine will dischargethe patient to retirement. SUBJECTIVE: History Since Last Visit: Patient has no new complaints Review of Systems: Review of Systems Constitutional: Negative for activity change, appetite change, chills, diaphoresis, fatigue, fever and unexpected weight change. HENT: Negative for congestion. Eyes: Negative for visual disturbance. Respiratory: Negative for apnea, cough, choking, chest tightness, shortness of breath, wheezing andstridor. Cardiovascular: Negative for chest pain, palpitations and [...] 05/07/21 9:15 AM: Laboratory, Medications and Transcriptions * Lilly Pelaez, LINING REPAIRER - 05/06/2021 1:47 PM EDT Physical Therapy PHYSICAL THERAPY TREATMENT NOTE Skilled [...] assist Stand Pivot Transfers: Contact guard assist Director Online Marketing: wheeled walker Skilled Intervention Provided: verbal cues, [...] of session to improve breathing with pt agreeableto try. Home Living Obtained Home Living and [...] Home Living: pt was at [place]hab in [place] for a hip fracture sustained~ 1 month ago. pt came [facility] Prior Level of Function Receives Help From: Spouse Level of White - Transfers/Ambulation/Mobility: Independent with functional transfers, Independent with household ambulation, Independent with community ambulation Level of White - ADLs: Independent Level of White - Homemaking: Independent Driving: Patient does not [...] completion of Physical Therapy Plan of Care. * Don Pennington MD - 05/06/2021 8:12 AM EDT Patient admitted with a urinary sepsis urine culture growing staph and enterococci received IV antibiotic and completed Patient is waiting to be discharged to retirement and verifying certification Patient is here in [...] at rate 69 sinus rhythm. Waiting discharge * Yessica Luna MSW LSW - 05/05/2021 1:30 PM EDT DISCHARGE PLAN PROGRESS NOTE Date: 05/05/2021 Time: 1:30 PM Updated therapy notes sent to [facility] for precert. Contacted [facility] and notified Brii that notes were sent. Patient Name: Stevo Germain Date of : 1950 Sex: Male [facility] Disposition D/C Disposition: Usp Facility Agency/Destination: [facility] Estimated Length of Stay (ELOS): 16 ELOS Discussed with Patient / Family?: Yes Anticipated Discharge Plan Anticipated HME: None Anticipated Home Care Needs: None Anticipated Facility Type: longterm facility * Vonda Herrera OTA - 05/05/2021 1:10 PM EDT Occupational Therapy OCCUPATIONAL THERAPY TREATMENT NOTE Skilled [...] Contact guard assist, Head of bed elevated Director Online Marketing: bedrails Skilled Intervention Provided: monitoring patient response with activity For: fall prevention, efficient movement, safe use of bedrails and/or equipment Resulting In: improved activity tolerance, improved performance, improved functional independence, improved safety, increased initiation in mobility task(s) Functional Transfers Sit to Stand: Minimal assist (from EOB) Director Online Marketing: wheeled walker Skilled Intervention Provided: monitoring patient [...] Home Living: pt was at rehab in [place] for a hip fracture sustained~ 1 month ago. pt came to [facility] Prior Level of Function Receives Help From: Spouse Level of White - Transfers/Ambulation/Mobility: Independent with functional transfers, Independent with household ambulation, Independent with community ambulation Level of White - ADLs: Independent Level of White - Homemaking: Independent Driving: Patient does not [...] completion of Occupational Therapy Plan of Care. * Mary Houston - 05/05/2021 12:21 PM EDT Spiritual Care Progress Note Completed by: Akhil Ventura Person(s) Present During this Visit: Patient Time Spent in Direct Patient Care: 30 Narrative: While rounding, visited with Stevo. He shared the nature of his visit in thathe fell on his hip. He further shared his lengthy stay in multiple hospitals as of late (2 months).Still, he applauded and expressed gratitude toward the medical team for their kind hospitality. 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 Stevo explained that he was thankful for the good Lord keeping him during his life. He emphasized that if it had not been for the Lord his medical condition would be worse. Stevo's support system includes: his spouse, and two sons who according to Stevo are very closeand still come around. The immediate family has come by to see him multiple times since his stay. Stevo also shared the hobbies he wishes he could return to post his medical stay (fishing). Resource Management Planner providing a listening ear while Stevo shared his anxiety of the unknown of what was going on with his kidney's. Resource Management Planner continued to provide emotional/spiritual support while Stevo requested prayer. Resource Management Planner prayed and let Stevo know that the pastoral care team was ready and available to help with emotional/spiritual support during his visit. Pastoral Care team will remain available to support patient and family PRN. No family was present during the visit. Patient's Response to Pastoral Care: Planning for Future Visits: PRN, Pt aware to contact Resource Management Planner as needed 05/05/21 1125 Visit Background Visit With Patient Visit By Student Resource Management Planner Visit Progression Introduction Visit Requested By Resource Management Planner Initiated Visit Source Resource Management Planner Initiated Visit Type Inpatient;Rounding Visit Circumstances and Events Routine Visit Visit Length (minutes) 30 Visit Planning PRN;Pt aware to contact Resource Management Planner as needed Spiritual Assessment Assessed during this visit Methodist Assessment Unable to Assess during this visit Family assessment provided? Unable to asess during this visit Patient Spiritual Needs Assessment Sources of Connection Son;Spouse (Son(s) - two of them ) Belief Practices Prayer Image of the Wrist Closer;Love (The Good Lord) Role of the Divine [...] Support;Receive Comfort;Regain Sense of Normalcy Akhil Ventura Resource Management Planner Airplane Fueler [facility] 22/05 On-Call * Lance Montero PTA - 05/05/2021 10:20 AM EDT Physical Therapy PHYSICAL THERAPY TREATMENT NOTE Skilled [...] Standing Balance - Static: Contact guard assist Director Online Marketing - Standing Static: wheeled walker Standing Balance - Dynamic: Contact guard assist Director Online Marketing - Standing Dynamic: wheeled walker Standing Balance [...] assist Stand Pivot Transfers: Contact guard assist Director Online Marketing: wheeled walker Skilled Intervention Provided: verbal cues, [...] Home Living: pt was at rehab in [place] for a hip fracture sustained~ 1 month ago. pt came to [facility] Prior Level of Function Receives Help From: Spouse Level of White - Transfers/Ambulation/Mobility: Independent with functional transfers, Independent with household ambulation, Independent with community ambulation Level of White - ADLs: Independent Level of White - Homemaking: Independent Driving: Patient does not [...] completion of Physical Therapy Plan of Care. * Bryce Alvarez MD - 05/05/2021 9:28 AM EDT Internal medicine Inpatient Follow-up 05/05/2021 Bryce Alvarez MD [facility] Patient: Stevo Germain Date of : 1950 (71 y.o.) PCP: Phyllis Mae MD ASSESSMENT/PLAN: Stevo Germain 71 y.o. male Sepsis with acute renal failure without septic shock (HCC) Assessment & Plan Present on admission now resolved. Off of antibiotics. * Acute renal failure superimposed on stage 3a chronic kidney disease (HCC) Assessment & Plan Diego has been removed for last 24 hours. [...] Plan Confirmed by post void residual. As Diego is out now we will check post residual volume by ultrasound. Chronic obstructive pulmonary disease (HCC) Assessment & Plan Stable Summary of assessment and Plan patient's Diego is out waiting for insurance pre- CERT for discharge. SUBJECTIVE: History Since Last Visit: Patient has no new complaints Review of Systems: Review of Systems Constitutional: Negative for activity change, appetite change, chills, diaphoresis, fatigue, fever and unexpected weight change. HENT: Negative for congestion. Eyes: Negative for visual disturbance. Respiratory: Negative for apnea, cough, choking, chest tightness, shortness of breath, wheezing andstridor. Cardiovascular: Negative for chest pain, palpitations and [...] 05/05/21 9:28 AM: Laboratory, Medications and Transcriptions * Yessica Luna, RENALDO CARPENTER - 05/04/2021 3:10 PM EDT DISCHARGE PLAN PROGRESS NOTE Date: 05/04/2021 Time: 3:10 PM Updated therapy notes sent to in-basket. A message was left for Brii with [facility] at [facility]. Patient Name: Stevo Germain Date of : 1950 Sex: Male [facility] Disposition D/C Disposition: Usp Facility Agency/Destination: [facility] Estimated Length of Stay (ELOS): 16 ELOS Discussed with Patient / Family?: Yes Anticipated Discharge Plan Anticipated HME: None Anticipated Home Care Needs: None Anticipated Facility Type: longterm facility * Lance Montero PTA - 05/04/2021 2:20 PM EDT Physical Therapy PHYSICAL THERAPY TREATMENT NOTE Skilled [...] Standing Balance - Dynamic: Contact guard assist Director Online Marketing - Standing Dynamic: wheeled walker Standing Balance [...] assist Bed to Chair: Contact guard assist Director Online Marketing: wheeled walker Skilled Intervention Provided: verbal cues, [...] improved efficiency, improved functional independence, improved performance, improvedsafety Exercise Seated Exercises: Pt engaged in seated BLE ther ex x20 reps ea with mod cues for technique and formall to improve strength and activity tolerance for [...] Home Living: pt was at [place]hab [place] a hip fracture sustained~ 1 month ago. pt came to [facility] Prior Level of Function Receives Help From: Spouse Level of White - Transfers/Ambulation/Mobility: Independent with functional transfers, Independent with household ambulation, Independent with community ambulation Level of White - ADLs: Independent Level of White - Homemaking: Independent Driving: Patient does not [...] completion of Physical Therapy Plan of Care. * Manohar Shaw RN - 05/04/2021 10:04 AM EDT COMPLEX DISCHARGE Date: 05/04/2021 Time: 10:04 AM Patient Name: Stevo Germain Date of : 1950 Sex: Male Patient Information Primary Caregiver: Other (Comment) ([facility]) Per Dr Alvarez, precert can be started to return to [facility]. Source of Information: Patient, Significant Other Living Arrangements: Facility Support Systems: Spouse/significant other Assistance Needed: Moderate Type of Residence: long-term Care Facility Name: [facility] Prior to Admission Home Care Services: Yes Type of Current Home Care Services: Home health care Patient expects to be discharged to:: [facility] Does the patient need discharge transport arranged?: Yes [facility] Disposition D/C Disposition: Usp Facility Agency/Destination: [facility] Estimated Length of Stay (ELOS): 16 ELOS Discussed with Patient / Family?: Yes * Fior Kate RD - 05/04/2021 9:58 AM EDT Nutrition Care Initial Assessment Reason for visit: [...] reviewed. Normal LV function No history of MS. Stage III renal insufficiency Remote history of CVA Follows with vascular. hospitalized in January of 2017 at [facility] in [place]. He had nausea and some abdominal pain, warm feeling from his head down through his body, perhaps some chest discomfo Arthritis Carotid artery occlusion CKD (chronic kidney disease) Stage III Closed fracture of left orbital floor (HCC) 06/10/2020 Closed fracture of multiple ribs of left side 06/10/2020 COPD (chronic obstructive pulmonary disease) ([facility]) Diabetes mellitus ([facility]) TYPE 2 Essential tremor Fall down stairs 04/14/2020 History of pneumonia Hyperlipidemia Hypertension Left carotid artery stenosis 03/30/2016 Leg cramps Leg heaviness MGUS (monoclonal gammopathy of unknown significance) Peptic ulcer disease PVD (peripheral vascular disease) ([facility]) Rhabdomyolysis 2009 Statin intolerance 04/01/2019 ??? Rhabdomyolysis in past. Stroke ([facility]) 2009 R side Height: 5' 7.5" Current [...] Daily heparin (porcine) 5,000 Units Subcutaneous Q8H [facility] insulin glargine 16 Units Subcutaneous Nightly lispro insulin 0-15 Units Subcutaneous at bedtime insulin lispro 0-30 Units Subcutaneous TID AC labetalol 100 mg Oral Q12H GM NIFEdipine 30 mg Oral Daily pantoprazole 40 mg Oral Daily PARoxetine 20 mg Oral Daily sodium bicarbonate 1,300 mg Oral BID sodium chloride (PF) 5 mL Intravenous Q8H [facility] tiotropium bromide 2 puff Inhalation Daily Continuous Infusions: sodium chloride 0.9 % Stopped (05/03/21 0413) Estimated Energy Needs Total Energy Estimated Needs: 1900 kcal Method for Estimating Needs: @ 28 kcal/kg Total Protein Estimated Needs: 65 gm Method for Estimating Needs: @ 1 gm/kg Will continue to follow as needed., while in-house. * Don Pennington MD - 05/04/2021 8:47 AM EDT Patient admitted with urinary sepsis, urine culture [...] inactive Talked about discharge plans and discontinuing Diego Patient feels he can walk or ambulate with assistance or walker On examination the HEENT Except for pallor no abnormal finding Chest is symmetric and clear cardiac examination normal first and second heart sound Abdomen examination negative stable rest of the examination * Yessica Luna MSW LSW - 05/03/2021 1:03 PM EDT DISCHARGE PLAN PROGRESS NOTE Date: 05/03/2021 Time: 1:03 PM Plan remains in [address] for patient to return to [facility] at discharge. Patient will requirenew precert. Patient Name: Stveo Germain Date of : 1950 Sex: Male [facility] Disposition D/C Disposition: Usp Facility Agency/Destination: [facility] Estimated Length of Stay (ELOS): 16 ELOS Discussed with Patient / Family?: Yes * Bryce Alvarez MD - 05/03/2021 10:26 AM EDT Internal medicine Inpatient Follow-up 05/03/2021 Bryce Alvarez MD [facility] Patient: Stevo Germain Date of : 1950 (71 y.o.) PCP: Phyllis Mae MD ASSESSMENT/PLAN: Stevo Germain 71 y.o. male Sepsis with acute renal failure without septic shock (HCC) Assessment & Plan Present on admission now resolved. Repeat urine culture no growth. Will discontinue antibiotics. * Acute renal failure superimposed on stage 3a chronic kidney disease (HCC) Assessment & Plan Acute component more than likely obstructive. A trial of discontinuing Diego catheter was tried. Patient still could not void much yesterday postvoid residual was 330 mL. Diego was reinserted noted that creatinine increased after the Diego was discontinued. Repeat lab ordered for tomorrow Type 2 diabetes mellitus with stage 3b chronic kidney disease, with long-term current use of insulin ([facility]) Assessment & Plan Blood sugar is stable. Essential hypertension Assessment & Plan Blood pressure is better. Anemia due to stage 3a chronic kidney disease ([facility]) Assessment & Plan Repeat lab ordered for tomorrow Urinary tract infection associated with indwelling urethral catheter ([facility]) Assessment & Plan Resolved. Urinary retention Assessment & Plan Confirmed by post void residual. Chronic obstructive pulmonary disease (HCC) Assessment & Plan Stable Summary of assessment and Plan patient clinically stable patient did have post void residual significant with increased creatinine. Now Diego is placed back will discontinue IV fluids and IV antibiotic if BUN/creatinine is stable will plan discharge to retirement tomorrow. SUBJECTIVE: History Since Last Visit: Patient continues to deny any complaints. Poor historian. Review of Systems: Review of Systems Constitutional: Negative for activity change, appetite change, chills, diaphoresis, fatigue, fever and unexpected weight change. HENT: Negative for congestion. Eyes: Negative for visual disturbance. Respiratory: Negative for apnea, cough, choking, chest tightness, shortness of breath, wheezing andstridor. Cardiovascular: Negative for chest pain, palpitations and [...] General: Bowel sounds are normal. Genitourinary: Comments: Diego in place. Musculoskeletal: General: Normal range of motion. Cervical back: Neck supple. Skin: General: Skin is warm. Neurological: General: No focal deficit present. Mental Status: He is alert. Psychiatric: Mood and Affect: Mood normal. Laboratory and Additional Data Reviewed: Reviewed 05/03/21 10:26 AM: Laboratory, Microbiology, Cardiology, Medications and Transcriptions * Fransisca Johnson, [facility],PharmD - 05/03/2021 12:54 AM EDT PHARMACOTHERAPY NOTE: Antimicrobial Therapy Follow-up Assessment / Plan: Stevo Germain is a 71 y.o. male initiated on [...] Pharmacist: Fransisca Johnson RPh,PharmD Contact Number: [phone] * Don Pennington MD - 05/02/2021 8:34 AM EDT [facility] Medicine Inpatient Follow-up 05/02/2021 Don Pennington MD [facility] Patient: Stevo Germain Date of : 1950 (71 y.o.) PCP: Phyllis Mae MD ASSESSMENT/PLAN: Principal Problem: Sepsis with acute renal failure without septic shock ([facility]) Active Problems: Type 2 diabetes mellitus with [...] Abnormal labs: Creatinine 1.3, hemoglobin 8. 7 * Vonda Guidry RN - 05/02/2021 6:47 AM EDT Patient has been urinating with no issues since removal of diego. Upon post void residual at 3:30ampatient had bladder scan done with 118ML left in bladder after urinating 250ml * Vonda Guidry RN - 05/01/2021 7:55 PM EDT Talked to Dr Alvarez, told him patient had voided. Orders to bladder scan after next void, call him back if patient has post void residual more than 300ml * Bryce Alvarez MD - 05/01/2021 8:54 AM EDT Internal medicine Inpatient Follow-up 05/01/2021 Bryce Alvarez MD [facility] Patient: Stevo Germain Date of : 1950 (71 y.o.) PCP: Phyllis Mae MD ASSESSMENT/PLAN: Stevo Germain 71 y.o. male * Sepsis with acute renal failure without septic shock (HCC) Assessment & Plan Probable source of infection urinary tract infection. Urine culture growing Staph aureus,yeast and enterococci Plan continue vancomycin and Diflucan. Repeat urine culture sent. Type 2 diabetes mellitus with stage 3b chronic kidney disease, with long-term current use of insulin ([facility]) Assessment & Plan Blood sugar is stable. Essential hypertension Assessment & Plan Blood pressure is better. Anemia due to stage 3a chronic kidney disease ([facility]) Assessment & Plan Monitor hemoglobin. Urinary tract infection associated with indwelling urethral catheter ([facility]) Assessment & Plan Source of sepsis. Plan continue IV antibiotic and antifungal treatment. Urinary retention Assessment & Plan Plan bladder training and discontinue Diego monitor for difficulty in urinating and residual urine.May repeat ultrasound of kidney and bladder without Diego before discharge. Chronic obstructive pulmonary disease (HCC) Assessment & Plan Stable Summary of assessment and Plan plan continue IV antibiotic and antifungal. DC Diego look for any evidence of obstruction or difficulty urinating if none will do ultrasound ofthe kidney and bladder before discharging back to retirement. Called his and updated the plan. SUBJECTIVE: [...] choking, chest tightness, shortness of breath, wheezing andstridor. Cardiovascular: Negative for chest pain, palpitations and [...] Laboratory, Microbiology, Radiology, Cardiology, Medications and Transcriptions * Don Pennington MD - 04/30/2021 8:18 AM EDT [facility] Medicine Inpatient Follow-up 04/30/2021 Don Pennington MD [facility] Patient: Stevo Germain Date of : 1950 (71 y.o.) PCP: [...] acute renal failure and released to the retirement. Stable type 2 diabetes mellitus Stable chronic [...] 3.9. Creatinine 1.58 hemoglobin 8.4 WBC 6.59 * Manohar Shaw RN - 04/29/2021 2:06 PM EDT 04/29/21 1404 General Care Management Assessment completed with: Patient;Spouse or significant other Living arrangement: Facility (currently at [facility]) Support system: Significant other Type of residence: long-term Was Home Health ordered? No Was Durable Medical Equipment (DME) ordered? No Bed or wheelchair confined: No Diet: Diabetic diet Inadequate nutrition: No Medication adherence problem: No Experiencing side effects from current medications: No History of falls in last 6 months: (!) Yes Difficulty keeping appointments: No Family aware of the patient's advance care planning wishes: Yes Methodist or spiritual beliefs that impact treatment: No [...] Met with patient and spouse. Admitted from [facility] at [place] where he is currently receiving therapy with plan to return home when stronger. * Lisa Canas RD - 04/29/2021 11:08 AM EDT CHART REVIEW Reason for visit: Dietitian Screen d/t BMI of 21.14. Current diet order: ALEXSANDRA, renal Diet Current oral nutrition supplement: n/a Recent intake: 75%-100%X, 25%-50%X1. Dx/Pertinent clinical information: Past Medical History: Diagnosis Date Arthritis Carotid artery occlusion CKD (chronic kidney disease) Stage III COPD (chronic obstructive pulmonary disease) ([facility]) Diabetes mellitus ([facility]) TYPE 2 Essential tremor History of pneumonia Hyperlipidemia Hypertension Left carotid artery stenosis 03/30/2016 Leg cramps Leg heaviness MGUS (monoclonal gammopathy of unknown significance) Peptic ulcer disease PVD (peripheral vascular disease) ([facility]) Rhabdomyolysis 2009 Stroke ([facility]) 2009 R side Height: 5' 7.5" Current [...] within 6 days. GIAN Estrella, RDN, LD * Kenna Quintero RPh,PharmD - 04/29/2021 9:30 AM EDT PHARMACOTHERAPY NOTE: Antimicrobial Therapy Initiation Assessment / Plan: Stevo Germain is a 71 y.o. male initiated on [...] 1 Encounters: 04/27/21 62.1 kg (137 lb) [place] body weight: 67.2 kg (148 lb 4.1 [...] Pending Pharmacist: Kenna Quintero RPh,PharmD Contact Number: [phone] * Brenda Peña MD - 04/28/2021 1:42 PM EDT [facility] Medicine Inpatient Follow-up 04/28/2021 Brenda Peña MD [facility] Patient: Stevo Germain Date of : 1950 (71 y.o.) PCP: Phyllis Mae MD ASSESSMENT/PLAN: Stevo Germain 71 y.o. male residing in a retirement is known for chronic kidney disease stage III with baseline creatinine of 1.1-1.2 history of peripheral vascular disease and carotid artery occlusion COPD history of diabetes mellitus hypertension the hyperlipidemia essential tremor MGUS and pep tic ulcer disease previous stroke and rhabdomyolysis is here due to weakness has chronic Diego catheter, Principal Problem: ELBA (acute kidney injury) ([facility]) PLAN: Urinary tract infection Urine culture growing [...] IMAGING: Reviewed 1:42 PM documented in this [id number] Hospital Discharge instructions * Discharge Instr - IP OT* Vonda Herrera OTA - 05/05/2021 1:12 PM EDT Please issue sock aid at discharge. documented in this [id number] Consult note* Fadumo Cespedes OT - 04/30/2021 9:48 AM EDT Occupational Therapy OCCUPATIONAL THERAPY EVALUATION Dx: Sepsis [...] spouse. The patient's co morbidities do significantly affectpatient performance in the above activities and roles. The performance deficits are a result of musculoskeletal impairment(s) in right, lower extremity, generalized debility including strength, rangeof motion, balance, acitvity tolerance, pain, insight, safety, and knowledge deficit, pain intolerance. The patient's family / caregiver support is a director of claims for return to prior level of function. The patient's compliance is a director of claims to return to prior level of function. [...] x2) Bed to Chair Transfers: Minimal assist Director Online Marketing: wheeled walker Home Living Obtained Home Living [...] Home Living: [place] a hip fracture sustained~ 1 month ago. pt came [facility] Prior Level of Function Receives Help From: Spouse Level of White - Transfers/Ambulation/Mobility: Independent with functional transfers, Independent with household ambulation, Independent with community ambulation Level of White - ADLs: Independent Level of White - Homemaking: Independent Driving: Patient does not drive Subjective Impression - Prior Function: Pt's spouse works wall mirror department supervisor outside of the home. For the past ~1 month, pt has been at [facility] for rehab for hip fx. Past Medical History: Diagnosis Date Abnormal stress test 04/21/2016 Dobutamine stress echo October 2018 negative for ischemia at a very low submaximal heart rate reviewed. Normal LV function No history of MS. Stage III renal insufficiency Remote history of CVA Follows with vascular. hospitalized in January of 2017 at [facility]. He had nausea and some abdominal pain, warm feeling from his head down through his body, perhaps some chest discomfo Arthritis Carotid artery occlusion CKD (chronic kidney disease) Stage III Closed fracture of left orbital floor ([facility]) 06/10/2020 Closed fracture of multiple ribs of left side 06/10/2020 COPD (chronic obstructive pulmonary disease) ([facility]) Diabetes mellitus ([facility]) TYPE 2 Essential tremor Fall down stairs [...] completion of Occupational Therapy Plan of Care. * Annita Camacho, PT - 04/30/2021 9:17 AM EDT Physical Therapy PHYSICAL THERAPY EVALUATION and TREATMENT [...] Impaired: 47.12% Physical Therapy Assessment History: Stevo Germain is a 71 y.o. male presenting from retirement with complaint of decreased level of consciousness [...] result in limitations of Gait, Functional Transfers, Stair- Climbing, Safety, Safety Awareness, Activity Tolerance, Insight. These [...] Standing Balance - Static: Contact guard assist Director Online Marketing - Standing Static: wheeled walker Bed Mobility Rolling: Modified independent Supine to Sit: Modified independent Sit to Supine: Modified independent Transfers Sit to Stand: Minimal assist Bed to Chair: Minimal assist Stand Pivot Transfers: Minimal assist Director Online Marketing: wheeled walker Gait/Locomotion Gait Assistance: Minimal assist Assistive Device: wheeled walker Distance: 3 Feet Pattern: step to Home Living Obtained Home Living and PLOF info from: Patient Lives With: Spouse Type of Home: House Home Layout: One level, Laundry in basement Steps to enter home: Ramped entrance Additional Objective Details - Home Living: [place] was [place] fracture sustained~ 1 month ago. pt came to [facility] Prior Level of Function Receives Help From: Spouse Level of White - Transfers/Ambulation/Mobility: Independent with functional transfers, Independent with household ambulation, Independent with community ambulation Level of White - ADLs: Independent Level of White - Homemaking: Independent Driving: Patient does not [...] reviewed. Normal LV function No history of MS. Stage III renal insufficiency Remote history of CVA Follows with vascular. hospitalized in January of 2017 at [facility] in [place]. He had nausea and some abdominal pain, warm feeling from his head down through his body, perhaps some chest discomfo Arthritis Carotid artery occlusion CKD (chronic kidney disease) Stage III Closed fracture of left orbital floor ([facility]) 06/10/2020 Closed fracture of multiple ribs of left side 06/10/2020 COPD (chronic obstructive pulmonary disease) ([facility]) Diabetes mellitus ([facility]) TYPE 2 Essential tremor Fall down stairs 04/14/2020 History of pneumonia Hyperlipidemia Hypertension Left carotid artery stenosis 03/30/2016 Leg cramps Leg heaviness MGUS (monoclonal gammopathy of unknown significance) Peptic ulcer disease PVD (peripheral vascular disease) ([facility]) Rhabdomyolysis 2009 Statin intolerance 04/01/2019 ??? Rhabdomyolysis in past. Stroke ([facility]) 2010 R side Past Surgical History: Procedure [...] hospital or completion of Physical Therapy Plan. * Manohar Shaw RN - 04/29/2021 2:08 PM EDT COMPLEX DISCHARGE Date: 04/29/2021 Time: 2:08 PM Patient Name: Stevo Germain Date of : 1950 Sex: Male Patient Information Primary Caregiver: Other (Comment) ([facility] [place]) Admitted from [facility], positive for UTI, started on IV antibiotics. Plan is to return there at discharge. Spoke with admissions at [facility], he will need precert to return. PT/OT ordered. Source of Information: Patient, Significant Other Living Arrangements: Facility Support Systems: Spouse/significant other Assistance Needed: Moderate Type of Residence: long-term Care Facility Name: [facility] Prior to Admission Home Care Services: Yes Type of Current Home Care Services: Home health care Patient expects to be discharged to:: [facility] Does the patient need discharge transport arranged?: Yes [facility] Disposition D/C Disposition: Usp Facility Agency/Destination: [facility] Estimated Length of Stay (ELOS): 16 ELOS Discussed with Patient / Family?: Yes * Bhavani Baptiste RN - 04/28/2021 10:26 AM EDT Associated Order(s): ED CONSULT TO MEDICAL - AUDIT OFFICER Mr. Germain was recently a patient here at [facility]. He was admitted on 04/05 and [facility] for continued rehab on 04/16. He has been at their facility since March 12. He has a history of a recent hip fracture, peripheral vascular disease, hypertension, diabetes mellitus, stroke, chronic kidney disease and urinary tract infections with a chronic diego that was replacedin the ED. He presented to the emergency department (ED) yesterday with a potassium of 7.5 and BUN of 47 and creatinine of 2.71. Today it is down to 4.8 with a BUN of 41 and creatinine of 1.94. The plan is to send off another urine and discharge him back to his facility. Mr. Germain is confused and there is no family at bedside, so a chart review was completed. No other needs identified at this time. Care Coordination will continue to follow while he remains in the ED. documented in this [id number] History and physical note* Bryce Alvarez MD - 04/29/2021 6:43 PM EDT Internal Medicine Inpatient H&P 04/29/2021 Bryce Alvarez MD [facility] Patient: Stevo Germain Date of : 1950 (71 y.o.) PCP: [...] disease, with long-term current use of insulin ([facility]) Assessment & Plan Monitor blood sugar. Essential hypertension Assessment & Plan Blood pressure not under control added nifedipine. Anemia due to stage 3a chronic kidney disease ([facility]) Assessment & Plan Monitor hemoglobin. Urinary tract infection associated with indwelling urethral catheter ([facility]) Assessment & Plan Source of sepsis. Plan continue IV antibiotic and antifungal treatment. Urinary retention Assessment & Plan Patient has indwelling Diego catheter. Summary of assessment and plan; Stevo Germain 71 y.o. male with history of chronic kidney disease admitted for acute on chronic renal failure with severe hyperkalemia. Because of acute renal failure thought to be secondary to urinary tract infection and sepsis. Patient's chart reviewed patient's hyper kalemia resolved. Renal function improving. Patient's urine culture growing multiple organisms as patient has clinical signs of endorgan damagewe will treat the patient with antibiotic and antifungal treatment. Follow-up culture results for sensitivity. SUBJECTIVE: Chief Complaint/Reason for Visit: Decreased level of consciousness and abnormal lab. History of Present Illness: Stevo Germain is a 71 y.o. male presenting from retirement with complaint of decreased level of consciousness and abnormal lab. Patient recently was discharged after meeting treatment for sepsis secondary to urinary tract infection that admission was complicated by a fall and femur fracture. Patient had surgery for the same and prolonged hospital course. On discharge patient was doing well at the retirement had urology follow-up for urinary obstruction as clinically patient was doing better. Upon his follow-up urology appointment patient Diego catheter were is removed. When he came back to the facility repeat lab did show acute worsening of renal functions Diego was placed back in overnight IV hydration [...] reviewed. Normal LV function No history of MS. Stage III renal insufficiency Remote history of CVA Follows with vascular. hospitalized in January of 2017 at [facility] in [place]. He had nausea and some abdominal pain, warm feeling from his head down through his body, perhaps some chest discomfo Arthritis Carotid artery occlusion CKD (chronic kidney disease) Stage III Closed fracture of left orbital floor ([facility]) 06/10/2020 Closed fracture of multiple ribs of left side 06/10/2020 COPD (chronic obstructive pulmonary disease) ([facility]) Diabetes mellitus ([facility]) TYPE 2 Essential tremor Fall down stairs 04/14/2020 History of pneumonia Hyperlipidemia Hypertension Left carotid artery stenosis 03/30/2016 Leg cramps Leg heaviness MGUS (monoclonal gammopathy of unknown significance) Peptic ulcer disease PVD (peripheral vascular disease) ([facility]) Rhabdomyolysis 2009 Statin intolerance 04/01/2019 ??? Rhabdomyolysis in past. Stroke ([facility]) 2010 R side Past Surgical History: Procedure Laterality Date carotid angio 2010 HAND SURGERY Right 2008 IM NAILING FEMUR Right 04/07/2021 Procedure: RIGHT [...] 1 puff 2 (two)times a day . insulin glargine (LANTUS) 100 unit/mL injection, Inject 16 (sixteen) Units under the skin nightly . isosorbide mononitrate (IMDUR) 30 MG 24 hr tablet, Take 2 (two) tablets (60 mg total) by mouth daily . xipvlnuf-puqa-SW-calcium-mins 9 mg iron-400 mcg Tab, Take 1 tablet by mouth daily . NIFEdipine (ADALAT CC) 60 MG 24 hr tablet, Take 1 (one) tablet (60 mg total) by mouth daily . nitroGLYCERIN (NITROSTAT) 0.4 MG SL tablet, Place 0.4 mg under the tongue every 5 (five) minutes asneeded for chest pain . oxyCODONE-acetaminophen (PERCOCET) 5-325 [...] (NS) flush 5 mL, 5 mL, Intravenous, PRNAND sodium chloride (PF) (NS) flush 5 mL, [...] Laboratory, Microbiology, Radiology, Cardiology, Medications and Transcriptions * Geraldine Reilly MD - 04/27/2021 9:48 PM EDT [facility] Medicine Inpatient H&P 04/27/2021 Geraldine Reilly MD [facility] Patient: Stevo Germain Date of : 1950 (71 y.o.) PCP: Phyllis Mae MD Assessment Stevo Germain is a 71 y.o. male residing in a retirement is known for chronic kidney disease stage III with baseline creatinine of 1.1-1.2 history of peripheral vascular disease and carotid arteryocclusion COPD history of diabetes mellitus hypertension the hyperlipidemia essential tremor MGUS and peptic ulcer disease previous stroke and rhabdomyolysis is here due to weakness has chronic Foleycatheter, noticed rising creatinine and potassium level concern of UTI low blood pressure and bradycardia -Acute kidney injury prerenal azotemia hemodynamic related -Hyperkalemia of renal failure and acidemia on the top of ARB use -Hypotension hypovolemia and concern of sepsis mediated Has functioning Diego catheter septic work-up in process we will [...] Complaint: Weakness History of Presenting Illness: Stevo Germain is a 71 y.o. male residing in a retirement is known for chronic kidney disease stage III with baseline creatinine of 1.1-1.2 history of peripheral vascular disease and carotid arteryocclusion COPD history of diabetes mellitus hypertension the hyperlipidemia essential tremor MGUS and peptic ulcer disease previous stroke and rhabdomyolysis is here due to weakness has chronic Foleycatheter, noticed rising creatinine and potassium level concern [...] any abdominal pain or vomiting. Again the patient'sat the retirement for rehab. Patient presents with abnormal potassium Review of Systems: 10 systems reviewed and negative other than noted in HPI History: Past Medical History: Diagnosis Date Arthritis Carotid artery occlusion CKD (chronic kidney disease) Stage III COPD (chronic obstructive pulmonary disease) ([facility]) Diabetes mellitus (HCC) TYPE 2 Essential tremor History of pneumonia Hyperlipidemia Hypertension Left carotid artery stenosis 03/30/2016 Leg cramps Leg heaviness MGUS (monoclonal gammopathy of unknown significance) Peptic ulcer disease PVD (peripheral vascular disease) ([facility]) Rhabdomyolysis 2010 Stroke ([facility]) 2010 R side Past Surgical History: Procedure [...] 4(four) hours as needed for wheezing . atorvastatin (LIPITOR) 10 MG tablet Take 1 (one) tablet (10 mg total) by mouth nightly . calcium-vitamin D (calcium-vitamin D) 500 mg(1,250mg) -200 unit per tablet Take 1 tablet by mouth 2(two) times a day with meals . clopidogreL [...] (two) tablets (60 mg total) by mouth daily. metFORMIN (GLUCOPHAGE) 500 MG tablet Take 500 mg by mouth 2 (two) times a day with meals . wsqkluat-hvgk-IF-calcium-mins 9 mg iron-400 mcg Tab Take 1 [...] IMAGING: Reviewed 9:48 PM documented in this [id number] Emergency department Note* Edwin Zelaya RN - 04/28/2021 11:48 AM EDT Provided update to [facility] [place]. * Lizbeth Tadeo RN - 04/28/2021 10:22 AM EDT Returned to bed, diego changed per VO Dr. Peña. Emptied 900 ml slightly cloudy yellow urine from cath bag prior to changing. * Sammi Russo RN - 04/28/2021 7:15 AM EDT PT RIPPED OUT HIS IV AND TOOK HIMSELF OFF CARDIAC AND V/S MONITORING AGAIN, THIS RN REAPPLIED CARDIAC AND V/S MONITOR, REMINDED PT TO PLEASE LEAVE THAT ON * Sammi Russo RN - 04/28/2021 1:45 AM EDT AGAIN REAPPLIED ONLINE EDITOR PT TOOK OFF, THIS RN AND GORDO RN REPOSITIONED PT ON CART, PT REMAINS WITH ATB INFUSING PER PUMP AND IV FLUIDS * Sammi Russo RN - 04/28/2021 1:19 AM EDT PT TOOK HIMSELF OFF CARDIAC AND V/S MONITORING, THIS RN BACK CARTSIDE AND REMINDED PT NEED TO KEEP THAT ON, PT REMAINS RESTING ON CART AT THIS TIME * Brandin Feldman RN - 04/27/2021 7:22 PM EDT Meal tray provided to patient * Lev Stockton MD - 04/27/2021 5:07 PM EDT Associated Order(s): ECG 12 Lead; Critical Care Images from the original note were not included. [facility] EMERGENCY DEPARTMENT PCP - Phyllis Mae MD Please excuse grammar and misspelling secondary to Dragon dictation use Chief Complaint Patient presents with Abnormal Lab HPI Chief complaint abnormal potassium This is a 71-year-old male with past medical history significant for CVA chronic indwelling Diego COPD diabetes kidney disease presenting to the emerge department for concern of abnormal potassium. Patient is residing at the [facility]. Patient presents by EMS squad for elevated potassium yesterday was 5.7. Patient did have a liter of fluid today and it declined to 6.5. Patient denies any history of chest pain shortness breath fevers or chills. The patient was recently treated for UTI justus outpatient basis. There is no history of any traumas or falls. The patient denies any abdominal pain or vomiting. Again the patient's at the retirement for rehab. Patient presents with abnormal p otassium MEDICAL DECISION MAKING This is a 71-year-old male from a retirement multiple medical problems including history of CVA chronic kidney disease COPD diabetes chronic kidney problems presents here with hyperkalemia. Potassium repeat in the emerge department it was noted to be 7.5. Patient is given IV calcium sodium bicarbo trevon insulin and dextrose. The patient is given IV fluids. Patient also ordered for IV antibiotics for recent UTI with Rocephin he has no indication of acute sepsis. He does have underlying confusionlikely due to metabolic encephalopathy. The patient at this time will be admitted to stepdown unit I did discuss the case with admitting hospitalist who agrees with current management. He does have aindwelling Diego that is draining at this time. Again [...] ms QTC Calculation (Bezet) 390 ms P [place] 65 degrees R [place] 67 degrees T [place] 77 degrees POC Venous Blood Gas Panel-Pulm [...] g (premix) (1,000 mg Intravenous New Bag 6/29/21 1724) loratadine (CLARITIN) tablet 10 mg (has no [...] Date/Time: 04/27/2021 3:16 PM Performed by: Lev Stockton MD Authorized by: Lev Stockton MD Interpreted by ED attending physician Comparison: not compared with previous ECG Rhythm: sinus rhythm and sinus bradycardia BPM: 58 Conduction: conduction normal ST Segments: ST segments normal T Waves: T waves normal NE Interval: 182 QRS Interval: 84 QT Interval: 390 Clinical impression: sinus bradycardia Critical Care Performed by: Lev Stockton MD Authorized by: Lev Stockton MD Total critical care time: 45 minutes Critical care was necessary to treat or prevent imminent or life-threatening deterioration of the following conditions: metabolic crisis and renal failure. Critical care was time spent personally by me on the following activities: development of treatmentplan with patient or surrogate, evaluation of patient's [...] hernia in the ventral area. Genitourinary: Comments: Diego catheter is in place and is draining [...] Stage III COPD (chronic obstructive pulmonary disease) ([facility]) Diabetes mellitus (HCC) TYPE 2 Essential tremor History of pneumonia Hyperlipidemia Hypertension Left carotid artery stenosis 03/30/2016 Leg cramps Leg heaviness MGUS (monoclonal gammopathy of unknown significance) Peptic ulcer disease PVD (peripheral vascular disease) ([facility]) Rhabdomyolysis 2010 Stroke ([facility]) 2010 R side Past Surgical History Past Surgical History: Procedure Laterality Date carotid angio 2010 HAND SURGERY Right 2009 IM NAILING FEMUR Right 04/07/2021 Procedure: RIGHT TFN; Surgeon: Dylon Galindo MD; Location: Main OR; Service: Orthopedic NE THROMBOENDARTECTMY NECK,NECK INCIS Right 2009 SHOULDER OPEN ROTATOR CUFF REPAIR Left 2015 Family History Family History Problem Relation Age [...] on file Occupational History Occupation: Disability Comment: [employer] ([employer]) Tobacco Use Smoking status: Current Every Day [...] Social Gatherings with Friends and Family: Attends [employer] Services: Active Member of Clubs or Organizations: Attends Club or Organization Meetings: Marital Status: Allergies Allergies Allergen Reactions Levofloxacin GI Intolerance Varenicline Swelling Medications Patient's Medications New Prescriptions No medications on file Previous Medications ALBUTEROL (PROVENTIL) 2.5 MG /3 ML (0.083 %) NEBULIZER SOLUTION Take 2.5 mg by nebulization every 4(four) hours as needed for wheezing . AMLODIPINE [...] (two) tablets (60 mg total) by mouth daily. LORATADINE (CLARITIN) 10 MG TABLET Take 10 [...] Discontinued Medications No medications on file Lev Stockton MD 04/27/21 [id number] * Lizbeth Tadeo RN - 04/27/2021 3:09 PM EDT Patient presents per EMS for abnormal labs. Per EMS K+ was 5.7 yesterday, had a liter fluid and today level was 6.5. Denies any chest pain or SOB. * Nan Egan RN - 04/27/2021 3:09 PM EDT Bed: 10 Expected date: Expected time: Means of arrival: Comments: [place] documented in this [id number] History of Present illness Narrative* Katreyna Yeboah CNP - 04/26/2021 1:14 PM EDT Images from the original note were not included. Progress Note [facility] [address] [place] [address] [facility] [address] [place] [address] Physician Group 04/26/2021 Kateryna Yeboah CNP Provider Location:[facility] Patient Location Pump Service Supervisor: None Patient Location: [facility] ([place] Patient: Stevo Germain Date of : 1950 (71 y.o. male) PCP: Phyllis Mae MD HPI Stevo is a 71-year-old patient with a history of type 2 diabetes mellitus, stage III chronic kidney disease, long-term current use of insulin, COPD, PVD, hypertension, urinary retention, indwellingurinary catheter, history of ETOH dependence, anemia, history [...] and potassium. Order given to reinsert indwelling diego catheter, notify urology, stop losartan, repeat labs [...] Stage III COPD (chronic obstructive pulmonary disease) ([facility]) Diabetes mellitus ([facility]) TYPE 2 Essential tremor History of pneumonia Hyperlipidemia Hypertension Left carotid artery stenosis 03/30/2016 Leg cramps Leg heaviness MGUS (monoclonal gammopathy of unknown significance) Peptic ulcer disease PVD (peripheral vascular disease) ([facility]) Rhabdomyolysis 2010 Stroke ([facility]) 2010 R side Review of Systems Positives and pertinent negatives as per HPI. All other systems were reviewed and are negative. Physical Exam Constitutional: General: He is not in acute distress. Appearance: He is ill-appearing (chronically ill appearing). He is not toxic- appearing or diaphoretic. HENT: Head: Normocephalic and atraumatic. [...] BP readings Q shift #4 Begin 0.9% NSat 50ml/hr x 10 hours #5 Repeat CBC [...] extrapolated by contextual derivation. documented in this [id number] History of Present illness Narrative* Kateryna Yeboah CNP - 04/20/2021 6:16 PM EDT Images from the original note were not included. Progress Note [facility] [address] [place] [address] [facility] [address] [place], [place] [id number] [address] [facility] 04/19/2021 Kateryna Yeboah CNP Provider Location:[facility] Patient Location Pump Service Supervisor: None Patient Location: [facility] ([facility] Patient: Stevo R Germain Date of : 1950 (71 y.o. male) PCP: Phyllis Mae MD [facility] Stevo is a 71-year-old patient with a history of type 2 diabetes mellitus, stage III chronic kidney disease, long-term current use of insulin, COPD, PVD, hypertension, urinary retention, indwellingurinary catheter, history of EtOH dependence, anemia, history [...] continue Lantus as ordered. Continue with indwelling Diego catheter secondary to urinary retention patient will need outpatienturology follow-up secondary to urinary retention. The following portions of the patient's history were reviewed and updated as appropriate: allergies, current medications, past family history, past medical history, past social history, past surgicalhistory and problem list. Past Medical History: Diagnosis Date Arthritis Carotid artery occlusion CKD (chronic kidney disease) Stage III COPD (chronic obstructive pulmonary disease) ([facility]) Diabetes mellitus ([facility]) TYPE 2 Essential tremor History of pneumonia Hyperlipidemia Hypertension Left carotid artery stenosis 03/30/2016 Leg cramps Leg heaviness MGUS (monoclonal gammopathy of unknown significance) Peptic ulcer disease PVD (peripheral vascular disease) ([facility]) Rhabdomyolysis 2010 Stroke ([facility]) 2010 R side Review of Systems Positives and pertinent negatives as per HPI. All other systems were reviewed and are negative. Physical Exam Constitutional: General: He is not in acute distress. Appearance: He is ill-appearing (chronically ill appearing). He is not toxic- appearing or diaphoretic. HENT: Head: Normocephalic and atraumatic. [...] extrapolated by contextual derivation. documented in this [id number] Evaluation note* Diagnosis Anemia due to stage 3a chronic [...] history of fall documented in this encounter [id number] History of Present illness Narrative* Kateryna Yeboah CNP - 04/05/2021 2:18 PM EDT Progress Note [facility] [address] [facility] [address] [place] [phone] [facility] 04/05/2021 Kateryna Yeboah CNP Provider Location:[facility] Patient Location Pump Service Supervisor: None Patient Location: [facility] Patient: Stevo Germain Date of : 1950 (71 y.o. male) [...] is requesting that patient either be sent [facility] or have x-rays completed. X-ray of right hip was ordered patient is tender to to palpation over the right greater trochanter. No gross abnormalities noted to right hip. Aside from above-noted patient currently denies any concerns. He is sitting up in the recliner he follows simple commands. PERRLA intact. He has bilateral equal grasps. Patient was treated previously at [facility] for acute rising creatinine. Creatinine elevated to 3.17 was noted that patient was unable to void Diego catheter was placed with greater than 500 mL output. Creatinine has subsequently improved we will continue to monitor. Patient will need referral to urology. Staff did notify later in day patient was pointing at things that were not present. [facility] staff reports that VS [...] Stage III COPD (chronic obstructive pulmonary disease) ([facility]) Diabetes mellitus ([facility]) TYPE 2 Essential tremor History of pneumonia Hyperlipidemia Hypertension Leg cramps Leg heaviness MGUS (monoclonal gammopathy of unknown significance) Peptic ulcer disease PVD (peripheral vascular disease) ([facility]) Rhabdomyolysis 2010 Stroke ([facility]) 2010 R side Review of Systems Positives [...] tenderness, guarding or rebound. Genitourinary: Comments: Indwelling diego catheter Musculoskeletal: General: Tenderness (TTP right hip) [...] to urology secondary to urinary retention/ indwelling diego catheter. Decrease Lantus insulin to 16 units [...] extrapolated by contextual derivation. documented in this [id number] History of Present illness Narrative* Dylon Galindo MD - 03/24/2021 6:02 PM EDT Dictation on: 03/24/2021 6:02 PM by: DYLON GALINDO [[id number]] documented in this [id number] History of Present illness Narrative* Kateryna Yeboah CNP - 03/22/2021 3:46 PM EDT Progress Note [facility] [address] [facility] [address] [place] [phone] [facility] 03/22/2021 Kateryna Yeboah CNP Provider Location:[facility] Patient Location Pump Service Supervisor: None Patient Location: [facility] Patient: Stevo Germain Date of : 1950 (71 y.o. male) [...] Stage III COPD (chronic obstructive pulmonary disease) ([facility]) Diabetes mellitus ([facility]) TYPE 2 Essential tremor History of pneumonia Hyperlipidemia Hypertension Leg cramps Leg heaviness MGUS (monoclonal gammopathy of unknown significance) Peptic ulcer disease PVD (peripheral vascular disease) ([facility]) Rhabdomyolysis 2010 Stroke ([facility]) 2010 R side Review of Systems Positives [...] extrapolated by contextual derivation. documented in this [id number] History of Present illness Narrative* Kateryna Yeboah CNP - 03/15/2021 9:21 PM EDT Progress Note [facility] [address] [facility] [address] [facility] [phone] [facility] 03/15/2021 Kateryna Yeboah CNP Provider Location:[facility] Patient Location Pump Service Supervisor: None Patient Location: [facility] Patient: Stevo Germain Date of : 1950 (71 y.o. male) [...] FINDINGS: Parenchyma: The brain parenchyma demonstrates normal bridges-white differentiation. There is periventricular hypodensity consistent with [...] did have some delirium when presenting to retirement. After review of hospital records it does [...] Stage III COPD (chronic obstructive pulmonary disease) ([facility]) Diabetes mellitus ([facility]) TYPE 2 Essential tremor History of pneumonia Hyperlipidemia Hypertension Leg cramps Leg heaviness MGUS (monoclonal gammopathy of unknown significance) Peptic ulcer disease PVD (peripheral vascular disease) ([facility]) Rhabdomyolysis 2010 Stroke ([facility]) 2010 R side Review of Systems Positives [...] date is 21 days after admission into [facility] facility. Obtain CBC, CMP, magnesium, hemoglobin A1c, [...] extrapolated by contextual derivation. documented in this [id number] History of Present illness NarrativeMED REFILL. F/U AFTER HOSPITAL STAY ([facility] , 4 TIMES WITHIN LAST 3 [...] OR TRAMADOL FOR PAIN .HAS F/U WITH [facility] . .PER PT AND HE QUIT ETOH SINCE HOSPITAL STAY.AND CUT BACK ON SMOKING . HAS POOR APPETITE, WEIGHT LOSS , CHRONIC FATIGUE. STOPPED USING THE O2FOR HYPOXEMIA HOME HEALTH EVALUATIONS (W[place] D/C FROM [facility]) .CURRENTLY HAS HOME HEALTH AND GETS PHYSICAL TX AT HOME. AORTIC ANEURYSM AND DEPRESSION/ ANXIETY HAVE BEEN STABLE. [facility] [employer] Work Phone: [phone] 530-893305-04-2021 History of Present illness NarrativeMED REFILL. F/U AFTER HOSPITAL STAY ([facility] , 4 TIMES WITHIN LAST 3 [...] OR TRAMADOL FOR PAIN .HAS F/U WITH [facility] . .PER PT AND HE QUIT ETOH SINCE HOSPITAL STAY.AND CUT BACK ON SMOKING . HAS POOR APPETITE, WEIGHT LOSS , CHRONIC FATIGUE. STOPPED USING THE O2FOR HYPOXEMIA HOME HEALTH EVALUATIONS (WAS D/C FROM [facility]) .CURRENTLY HAS HOME HEALTH AND GETS PHYSICAL TX AT HOME. AORTIC ANEURYSM AND DEPRESSION/ ANXIETY HAVE BEEN STABLE. [facility] Work Phone: [phone]) 352-587605-03-2021 History of Present illness NarrativeF/U ON CAROTID DOPPLER AND U/S OF ABDOMINAL AORTA. . DIDN'T FINISH THE PHYSICAL TX LAST YEAR. HAS B/L LEG WEAKNESS . HAD NO RECENT FALLS.. PT IS ASYMPTOMATIC WITH HAVING VASCULAR MYELOPATHY , COPD HAS BEEN STABLE.. STILL DRINKS ETOH, BUT LESS FREQUENT.[facility] Work Phone: [phone] Telephone encounter Note* Telephone Encounter - Armand Can MA - 05/07/2019 8:05 AM EDT This medication was d/c 10/2017. Refused this medication. [id number] Miscellaneous Notes* Telephone Encounter - Armand Can MA - 05/07/2019 8:05 AM EDT This medication was d/c 10/2017. Refused this medication. documented in this [id number] History of Present illness NarrativeXR AND LAB [...] STAY.[facility] Work Phone: [phone]) [phone] History of Present illness Narrative INSOMNIA , [...] PER PT HAD RECENT LABS DONE FOR CRYSTAL GROWER AND HGBA1C WAS UNDER 5. PT CUT BACK ON ETOH AND SMOKING , BUT HASN'T COMPLETELY STOPPED THEM YET .PT IS HERE WITH .[facility] Work Phone: [phone] History of Present illness NarrativeCHEST PAIN B/L WITH RADIATIONS TO L ARM WITH SEVERITY OF 5/10 LASTING AROUND 5 MINUTES ON AND OFF XSEVERAL WEEKS. NOTHING MAKES THE PAIN BETTER OR WORSE. HAS OC IN 1 WEEK WITH [facility] AND WANT TO WAIT UNTIL THAT VISIT FOR CARDIAC EVALUATIONS. HAS EPIGASTRIC ABDOMINAL PAIN 4-5/10 ON AND OFF X SEVERAL WEEKS. NEEDS NEBULIZER MASK AND TUBE. NEEDS FLU SHOT TODAY.[facility] Internal [facility] Work Phone: Evaluation note* Diagnosis Claudication of lower extremity (HCC)- [facility] Diagnosis Chronic obstructive pulmonary disease, unspecified COPD type (HCC)- Primary PVD (peripheral vascular disease) (HCC) Unspecified peripheral vascular disease PAD (peripheral artery disease) ([facility]) Unspecified peripheral vascular disease Closed fracture of right hip with routine healing, subsequent encounter Tobacco use Type 2 diabetes mellitus with other specified complication, with long-term current use of insulin ([facility]) [facility] Diagnosis Type 2 diabetes mellitus with other specified complication, with long-term current use of insulin ([facility])- Primary [facility]* Diagnosis Closed displaced fracture of greater trochanter of right femur with routine healing, subsequent encounter- Primary [facility]* Diagnosis Type 2 diabetes mellitus with other specified complication, with long-term current use of insulin ([facility])- Primary Chronic obstructive pulmonary disease, unspecified COPD type ([facility]) Closed fracture of right hip with routine healing, subsequent encounter Urinary retention Unspecified retention of urine History of fall Personal history of fall History of cerebrovascular accident Transient ischemic attack (TIA), and cerebral infarction without residual deficits [facility]* Diagnosis Urinary retention- Primary Unspecified retention of urine [facility]* Diagnosis Type 2 diabetes mellitus with stage 3b chronic kidney disease, with long-term current use of insulin ([facility])- Primary Elevated serum creatinine Other nonspecific findings on examination of blood Urinary retention Unspecified retention of urine [facility]* Diagnosis Acute renal failure superimposed on chronic kidney disease, unspecified CKD stage, unspecified acute renal failure type ([facility]) Hyperkalemia Hyperpotassemia Acute UTI Urinary tract infection, site not specified H/O: CVA (cerebrovascular accident) Metabolic encephalopathy Neck pain Cervicalgia PAD (peripheral artery disease) ([facility]) Unspecified peripheral vascular disease PVD (peripheral vascular disease) ([facility]) Unspecified peripheral vascular disease Type 2 diabetes mellitus with stage 3b chronic kidney disease, with long-term current use of insulin ([facility]) Essential hypertension Unspecified essential hypertension ELBA (acute kidney injury) ([facility]) Closed displaced intertrochanteric fracture of right femur with routine healing, subsequent encounter Sepsis with acute renal failure without septic shock ([facility]) Anemia due to stage 3a chronic kidney disease ([facility]) Urinary tract infection associated with indwelling urethral catheter ([facility]) Urinary retention Unspecified retention of urine Chronic obstructive pulmonary disease ([facility]) [facility]* Diagnosis Closed displaced fracture of greater trochanter of right femur with routine healing, subsequent encounter- Primary [facility] Diagnosis Type 2 diabetes mellitus with stage 3b chronic kidney disease, with long-term current use of insulin ([facility])- Primary Essential hypertension Unspecified essential hypertension [facility]* Diagnosis Closed displaced fracture of greater trochanter of right femur with routine healing, subsequent encounter- Primary [facility]* Diagnosis Type 2 diabetes mellitus without complications ([facility]) [facility]* Diagnosis Type 2 diabetes mellitus with stage 3b chronic kidney disease, with long-term current use of insulin (HCC)- Primary [facility] Diagnosis GREEN (dyspnea on exertion)- Primary [...] Abdominal pain, RUQ documented in this encounter [facility] Work Phone: Evaluation note* Diagnosis Atypical parkinsonism [...] pain Essential tremor [facility] Diagnosis Type 2 diabetes mellitus with hyperglycemic coma ([facility])- Primary Hyperlipidemia, unspecified hyperlipidemia type Need for influenza vaccination Need for prophylactic vaccination and inoculation against influenza Chronic obstructive pulmonary disease, unspecified COPD type ([facility]) H/O: CVA (cerebrovascular accident) Essential tremor Encounter for vaccination Hypertriglyceridemia Pure hyperglyceridemia documented in this encounter [facility] Work Phone: Evaluation note* Diagnosis Atypical parkinsonism- Primary Diabetic polyneuropathy associated with type 2 diabetes mellitus ([facility]) Essential tremor Mild cognitive impairment Mild cognitive impairment, so stated [facility]* Diagnosis Type 2 diabetes mellitus with stage 3b chronic kidney disease, with long-term current use of insulin ([facility])- Primary Dyslipidemia Other and unspecified hyperlipidemia Essential hypertension Unspecified essential hypertension [facility]* Diagnosis Hypertension associated with type 2 diabetes mellitus ([facility])- Primary Type 2 diabetes mellitus with other circulatory complication, with long-term current use of insulin ([facility]) Gait difficulty Abnormality of gait Muscle weakness of lower extremity Muscle weakness (generalized) Recurrent falls Centrilobular emphysema ([facility]) Screening for prostate cancer Special screening for malignant neoplasm of prostate Hypertriglyceridemia Pure hyperglyceridemia Anemia, unspecified type Non-pressure chronic ulcer of other part of right foot with fat layer exposed ([facility]) Vascular myelopathies ([facility]) Vascular myelopathies Depression, major, in remission ([facility]) Thoracic aortic aneurysm without rupture, unspecified part ([facility]) Stage 3b chronic kidney disease ([facility]) Stable angina pectoris Calculus of gallbladder without cholecystitis without obstruction documented in this encounter [facility] Work Phone: Evaluation note* Diagnosis Diabetic foot (HCC)- Primary Type II or unspecified type diabetes mellitus with other specified manifestations, not stated as uncontrolled PVD (peripheral vascular disease) ([facility]) Unspecified peripheral vascular disease Type 2 diabetes mellitus with stage 3b chronic kidney disease, with long-term current use of insulin ([facility]) Claudication of lower extremity ([facility]) Tobacco use Xerosis of skin Onychodystrophy Other specified disease of nail Onychomycosis Dermatophytosis of nail Toe pain, bilateral [facility]* Diagnosis Type 2 diabetes mellitus with stage 3b chronic kidney disease, with long-term current use of insulin ([facility])- Primary [facility]* Diagnosis Type 2 diabetes mellitus with stage 3b chronic kidney disease, with long-term current use of insulin ([facility]) [facility]* Diagnosis Hypotension, unspecified hypotension type- Primary Upper respiratory tract infection, unspecified type documented in this encounter [facility] Work Phone: Evaluation note* Diagnosis Routine general medical examination at health care facility- Primary Routine general medical examination at a health care facility Superficial gastritis without hemorrhage, unspecified chronicity Weakness of upper extremity Weakness of both lower extremities Recurrent falls Neck pain Cervicalgia H/O: CVA (cerebrovascular accident) Essential tremor Neurogenic claudication Spinal stenosis of lumbar region Stable angina pectoris ([facility]) Hypertension associated with type 2 diabetes mellitus (Multi) Encounter for vaccination 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Multi) Hypotensive episode documented in this encounter [facility] Work Phone: Evaluation note* Diagnosis Diabetic foot (HCC)- Primary Type II or unspecified type diabetes mellitus with other specified manifestations, not stated as uncontrolled PVD (peripheral vascular disease) ([facility]) Unspecified peripheral vascular disease Type 2 diabetes mellitus with stage 3b chronic kidney disease, with long-term current use of insulin ([facility]) Claudication of lower extremity ([facility]) Tobacco use Xerosis of skin Onychodystrophy Other specified disease of nail Onychomycosis Dermatophytosis of nail Toe pain, bilateral [facility]* Diagnosis Type 2 diabetes mellitus with stage 3b chronic kidney disease, with long-term current use of insulin ([facility])- Primary [facility]* Diagnosis Ingrown toenail- Primary Ingrowing nail Paronychia of great toe PVD (peripheral vascular disease) ([facility]) Unspecified peripheral vascular disease Tobacco use Xerosis of skin Diabetic foot (HCC) Type II or unspecified type diabetes mellitus with other specified manifestations, not stated as uncontrolled [facility]* Diagnosis Onychodystrophy- Primary Other specified disease of nail Onychomycosis Dermatophytosis of nail PVD (peripheral vascular disease) ([facility]) Unspecified peripheral vascular disease Tobacco use Diabetic foot (HCC) Type II or unspecified type diabetes mellitus with other specified manifestations, not stated as uncontrolled Toe pain, bilateral documented in this encounter [facility] note* Diagnosis Bilateral carotid artery stenosis- Primary Occlusion and stenosis of carotid artery without mention of cerebral infarction PAD (peripheral artery disease) ([facility]) Unspecified peripheral vascular disease History of carotid endarterectomy Other postprocedural status Dyslipidemia Other and unspecified hyperlipidemia Claudication of lower extremity ([facility]) Neurogenic claudication- Primary Spinal stenosis of lumbar region PAD (peripheral artery disease) ([facility]) Unspecified peripheral vascular disease Claudication of lower extremity ([facility]) Bilateral carotid artery stenosis Occlusion and stenosis of carotid artery without mention of cerebral infarction History of carotid endarterectomy Other postprocedural status Occlusion and stenosis of right carotid artery Dyslipidemia Other and unspecified hyperlipidemia Fall, initial encounter- Primary Alcoholic intoxication with complication ([facility]) EtOH dependence ([facility]) Hyperkalemia Hyperpotassemia Acute renal failure superimposed on stage 4 chronic kidney disease, unspecified acute renal failure type ([facility]) Acute UTI Urinary tract infection, site not specified Closed displaced intertrochanteric fracture of right femur with routine healing, subsequent encounter Type 2 diabetes mellitus with stage 3b chronic kidney disease, with long-term current use of insulin ([facility]) Bilateral hip pain Pain in joint, pelvic region and thigh PVD (peripheral vascular disease) ([facility]) Unspecified peripheral vascular disease PAD (peripheral artery disease) ([facility]) Unspecified peripheral vascular disease Chronic obstructive pulmonary disease, unspecified COPD type ([facility]) Alcohol dependence with unspecified alcohol-induced disorder ([facility]) History of cerebrovascular accident Transient ischemic attack (TIA), and cerebral infarction without residual deficits History of fall Personal history of fall Acute renal failure superimposed on chronic kidney disease, unspecified CKD stage, unspecified acute renal failure type Hyperkalemia Hyperpotassemia Acute UTI Urinary tract infection, site not specified H/O: CVA (cerebrovascular accident) Metabolic encephalopathy Neck pain Cervicalgia PAD (peripheral artery disease) ([facility]) Unspecified peripheral vascular disease PVD (peripheral vascular disease) ([facility]) Unspecified peripheral vascular disease Type 2 diabetes mellitus with stage 3b chronic kidney disease, with long-term current use of insulin ([facility]) Essential hypertension Unspecified essential hypertension ELBA (acute kidney injury) ([facility]) Closed displaced intertrochanteric fracture of right femur with routine healing, subsequent encounter ELBA (acute kidney injury) ([facility]) Urinary tract infection associated with indwelling urethral catheter ([facility]) Urinary retention Unspecified retention of urine COPD exacerbation ([facility])- Primary Obstructive chronic bronchitis with exacerbation Acute [...] of insulin (HCC) PVD (peripheral vascular disease) ([facility]) Unspecified peripheral vascular disease Neurogenic claudication Spinal stenosis of lumbar region Dyslipidemia Other and unspecified hyperlipidemia Anemia due to stage 3a chronic kidney disease (HCC) Essential hypertension Unspecified essential hypertension Essential tremor Musculoskeletal chest pain Other chest pain Type 2 diabetes mellitus with stage 3b chronic kidney disease, with long-term current use of insulin ([facility])- Primary Dyslipidemia Other and unspecified hyperlipidemia Essential hypertension Unspecified essential hypertension [facility] Diagnosis Bilateral carotid artery stenosis- Primary Occlusion and stenosis of carotid artery without mention of cerebral infarction PAD (peripheral artery disease) ([facility]) Unspecified peripheral vascular disease History of carotid endarterectomy Other postprocedural status Dyslipidemia Other and unspecified hyperlipidemia Claudication of lower extremity ([facility]) Neurogenic claudication- Primary Spinal stenosis of lumbar region PAD (peripheral artery disease) ([facility]) Unspecified peripheral vascular disease Claudication of lower extremity ([facility]) Bilateral carotid artery stenosis Occlusion and stenosis of carotid artery without mention of cerebral infarction History of carotid endarterectomy Other postprocedural status Occlusion and stenosis of right carotid artery Dyslipidemia Other and unspecified hyperlipidemia Fall, initial encounter- Primary Alcoholic intoxication with complication ([facility]) EtOH dependence ([facility]) Hyperkalemia Hyperpotassemia Acute renal failure superimposed on stage 4 chronic kidney disease, unspecified acute renal failure type ([facility]) Acute UTI Urinary tract infection, site not specified Closed displaced intertrochanteric fracture of right femur with routine healing, subsequent encounter Type 2 diabetes mellitus with stage 3b chronic kidney disease, with long-term current use of insulin (HCC) Bilateral hip pain Pain in joint, pelvic region and thigh PVD (peripheral vascular disease) ([facility]) Unspecified peripheral vascular disease PAD (peripheral artery disease) ([facility]) Unspecified peripheral vascular disease Chronic obstructive pulmonary disease, unspecified COPD type (HCC) Alcohol dependence with unspecified alcohol-induced disorder ([facility]) History of cerebrovascular accident Transient ischemic attack (TIA), and cerebral infarction without residual deficits History of fall Personal history of fall Acute renal failure superimposed on chronic kidney disease, unspecified CKD stage, unspecified acute renal failure type Hyperkalemia Hyperpotassemia Acute UTI Urinary tract infection, site not specified H/O: CVA (cerebrovascular accident) Metabolic encephalopathy Neck pain Cervicalgia PAD (peripheral artery disease) ([facility]) Unspecified peripheral vascular disease PVD (peripheral vascular disease) ([facility]) Unspecified peripheral vascular disease Type 2 diabetes mellitus with stage 3b chronic kidney disease, with long-term current use of insulin ([facility]) Essential hypertension Unspecified essential hypertension ELBA (acute kidney injury) ([facility]) Closed displaced intertrochanteric fracture of right femur with routine healing, subsequent encounter ELBA (acute kidney injury) ([facility]) Urinary tract infection associated with indwelling urethral catheter ([facility]) Urinary retention Unspecified retention of urine COPD exacerbation ([facility])- Primary Obstructive chronic bronchitis with exacerbation Acute exacerbation of chronic obstructive pulmonary disease (COPD) ([facility]) Obstructive chronic bronchitis with exacerbation Chronic kidney disease, unspecified CKD stage Fall Unspecified fall Rib pain on left side Acute hypoxemic respiratory failure ([facility]) Stage 3b chronic kidney disease ([facility]) Type 2 diabetes mellitus with stage 3b chronic kidney disease, with long-term current use of insulin ([facility]) PVD (peripheral vascular disease) ([facility]) Unspecified peripheral vascular disease Neurogenic claudication Spinal stenosis of lumbar region Dyslipidemia Other and unspecified hyperlipidemia Anemia due to stage 3a chronic kidney disease ([facility]) Essential hypertension Unspecified essential hypertension Essential tremor Chest pain, unspecified type- Primary History of CVA (cerebrovascular accident) Transient ischemic attack (TIA), and cerebral infarction without residual deficits Essential hypertension Unspecified essential hypertension PVD (peripheral vascular disease) ([facility]) Unspecified peripheral vascular disease documented in this encounter [facility] Diagnosis Bilateral carotid artery stenosis- Primary Occlusion and stenosis of carotid artery without mention of cerebral infarction PAD (peripheral artery disease) ([facility]) Unspecified peripheral vascular disease History of carotid endarterectomy Other postprocedural status Dyslipidemia Other and unspecified hyperlipidemia Claudication of lower extremity ([facility]) Neurogenic claudication- Primary Spinal stenosis of lumbar region PAD (peripheral artery disease) ([facility]) Unspecified peripheral vascular disease Claudication of lower extremity ([facility]) Bilateral carotid artery stenosis Occlusion and stenosis of carotid artery without mention of cerebral infarction History of carotid endarterectomy Other postprocedural status Occlusion and stenosis of right carotid artery Dyslipidemia Other and unspecified hyperlipidemia Fall, initial encounter- Primary Alcoholic intoxication with complication ([facility]) EtOH dependence ([facility]) Hyperkalemia Hyperpotassemia Acute renal failure superimposed on stage 4 chronic kidney disease, unspecified acute renal failure type (HCC) Acute UTI Urinary tract infection, site not specified Closed displaced intertrochanteric fracture of right femur with routine healing, subsequent encounter Type 2 diabetes mellitus with stage 3b chronic kidney disease, with long-term current use of insulin ([facility]) Bilateral hip pain Pain in joint, pelvic region and thigh PVD (peripheral vascular disease) ([facility]) Unspecified peripheral vascular disease PAD (peripheral artery disease) ([facility]) Unspecified peripheral vascular disease Chronic obstructive pulmonary disease, unspecified COPD type ([facility]) Alcohol dependence with unspecified alcohol-induced disorder ([facility]) History of cerebrovascular accident Transient ischemic attack (TIA), and cerebral infarction without residual deficits History of fall Personal history of fall Acute renal failure superimposed on chronic kidney disease, unspecified CKD stage, unspecified acute renal failure type Hyperkalemia Hyperpotassemia Acute UTI Urinary tract infection, site not specified H/O: CVA (cerebrovascular accident) Metabolic encephalopathy Neck pain Cervicalgia PAD (peripheral artery disease) ([facility]) Unspecified peripheral vascular disease PVD (peripheral vascular disease) ([facility]) Unspecified peripheral vascular disease Type 2 diabetes mellitus with stage 3b chronic kidney disease, with long-term current use of insulin ([facility]) Essential hypertension Unspecified essential hypertension ELBA (acute kidney injury) ([facility]) Closed displaced intertrochanteric fracture of right femur with routine healing, subsequent encounter ELBA (acute kidney injury) ([facility]) Urinary tract infection associated with indwelling urethral catheter ([facility]) Urinary retention Unspecified retention of urine COPD exacerbation ([facility] Primary Obstructive chronic bronchitis with exacerbation Acute exacerbation of chronic obstructive pulmonary disease (COPD) ([facility]) Obstructive chronic bronchitis with exacerbation Chronic kidney disease, unspecified CKD stage Fall Unspecified fall Rib pain on left side Acute hypoxemic respiratory failure ([facility]) Stage 3b chronic kidney disease ([facility]) Type 2 diabetes mellitus with stage 3b chronic kidney disease, with long-term current use of insulin ([facility]) PVD (peripheral vascular disease) ([facility]) Unspecified peripheral vascular disease Neurogenic claudication Spinal stenosis of lumbar region Dyslipidemia Other and unspecified hyperlipidemia Anemia due to stage 3a chronic kidney disease ([facility]) Essential hypertension Unspecified essential hypertension Essential tremor Chest pain, unspecified type- Primary History of CVA (cerebrovascular accident) Transient ischemic attack (TIA), and cerebral infarction without residual deficits Essential hypertension Unspecified essential hypertension PVD (peripheral vascular disease) ([facility]) Unspecified peripheral vascular disease Type 2 diabetes mellitus with stage 3b chronic kidney disease, with long-term current use of insulin ([facility] Primary documented in this encounter [facility] note* Diagnosis Bilateral carotid artery stenosis- Primary Occlusion and stenosis of carotid artery without mention of cerebral infarction PAD (peripheral artery disease) ([facility]) Unspecified peripheral vascular disease History of carotid endarterectomy Other postprocedural status Dyslipidemia Other and unspecified hyperlipidemia Claudication of lower extremity ([facility]) Neurogenic claudication- Primary Spinal stenosis of lumbar region PAD (peripheral artery disease) ([facility]) Unspecified peripheral vascular disease Claudication of lower extremity (HCC) Bilateral carotid artery stenosis Occlusion and stenosis of carotid artery without mention of cerebral infarction History of carotid endarterectomy Other postprocedural status Occlusion and stenosis of right carotid artery Dyslipidemia Other and unspecified hyperlipidemia Fall, initial encounter- Primary Alcoholic intoxication with complication ([facility]) EtOH dependence ([facility]) Hyperkalemia Hyperpotassemia Acute renal failure superimposed on stage 4 chronic kidney disease, unspecified acute renal failure type ([facility]) Acute UTI Urinary tract infection, site not specified Closed displaced intertrochanteric fracture of right femur with routine healing, subsequent encounter Type 2 diabetes mellitus with stage 3b chronic kidney disease, with long-term current use of insulin ([facility]) Bilateral hip pain Pain in joint, pelvic region and thigh PVD (peripheral vascular disease) ([facility]) Unspecified peripheral vascular disease PAD (peripheral artery disease) ([facility]) Unspecified peripheral vascular disease Chronic obstructive pulmonary disease, unspecified COPD type ([facility]) Alcohol dependence with unspecified alcohol-induced disorder ([facility]) History of cerebrovascular accident Transient ischemic attack (TIA), and cerebral infarction without residual deficits History of fall Personal history of fall Acute renal failure superimposed on chronic kidney disease, unspecified CKD stage, unspecified acute renal failure type Hyperkalemia Hyperpotassemia Acute UTI Urinary tract infection, site not specified H/O: CVA (cerebrovascular accident) Metabolic encephalopathy Neck pain Cervicalgia PAD (peripheral artery disease) ([facility]) Unspecified peripheral vascular disease PVD (peripheral vascular disease) ([facility]) Unspecified peripheral vascular disease Type 2 diabetes mellitus with stage 3b chronic kidney disease, with long-term current use of insulin ([facility]) Essential hypertension Unspecified essential hypertension ELBA (acute kidney injury) ([facility]) Closed displaced intertrochanteric fracture of right femur with routine healing, subsequent encounter ELBA (acute kidney injury) ([facility]) Urinary tract infection associated with indwelling urethral catheter ([facility]) Urinary retention Unspecified retention of urine COPD exacerbation ([facility] Primary Obstructive chronic bronchitis with exacerbation Acute exacerbation of chronic obstructive pulmonary disease (COPD) ([facility]) Obstructive chronic bronchitis with exacerbation Chronic kidney disease, unspecified CKD stage Fall Unspecified fall Rib pain on left side Acute hypoxemic respiratory failure ([facility]) Stage 3b chronic kidney disease ([facility]) Type 2 diabetes mellitus with stage 3b chronic kidney disease, with long-term current use of insulin ([facility]) PVD (peripheral vascular disease) ([facility]) Unspecified peripheral vascular disease Neurogenic claudication Spinal stenosis of lumbar region Dyslipidemia Other and unspecified hyperlipidemia Anemia due to stage 3a chronic kidney disease ([facility]) Essential hypertension Unspecified essential hypertension Essential tremor Chest pain, unspecified type- Primary History of CVA (cerebrovascular accident) Transient ischemic attack (TIA), and cerebral infarction without residual deficits Essential hypertension Unspecified essential hypertension PVD (peripheral vascular disease) ([facility]) Unspecified peripheral vascular disease Onychodystrophy- Primary Other specified disease of nail Onychomycosis Dermatophytosis of nail PVD (peripheral vascular disease) ([facility]) Unspecified peripheral vascular disease Tobacco use Diabetic foot ([facility]) Type II or unspecified type diabetes mellitus with other specified manifestations, not stated as uncontrolled Xerosis of skin documented [facility] this encounter [facility] Diagnosis Bilateral carotid artery stenosis- Primary Occlusion and stenosis of carotid artery without mention of cerebral infarction PAD (peripheral artery disease) ([facility]) Unspecified peripheral vascular disease History of carotid endarterectomy Other postprocedural status Dyslipidemia Other and unspecified hyperlipidemia Claudication of lower extremity ([facility]) Neurogenic claudication- Primary Spinal stenosis of lumbar region PAD (peripheral artery disease) ([facility]) Unspecified peripheral vascular disease Claudication of lower extremity ([facility]) Bilateral carotid artery stenosis Occlusion and stenosis of carotid artery without mention of cerebral infarction History of carotid endarterectomy Other postprocedural status Occlusion and stenosis of right carotid artery Dyslipidemia Other and unspecified hyperlipidemia Fall, initial encounter- Primary Alcoholic intoxication with complication ([facility]) EtOH dependence ([facility]) Hyperkalemia Hyperpotassemia Acute renal failure superimposed on stage 4 chronic kidney disease, unspecified acute renal failure type ([facility]) Acute UTI Urinary tract infection, site not specified Closed displaced intertrochanteric fracture of right femur with routine healing, subsequent encounter Type 2 diabetes mellitus with stage 3b chronic kidney disease, with long-term current use of insulin ([facility]) Bilateral hip pain Pain in joint, pelvic region and thigh PVD (peripheral vascular disease) ([facility]) Unspecified peripheral vascular disease PAD (peripheral artery disease) ([facility]) Unspecified peripheral vascular disease Chronic obstructive pulmonary disease, unspecified COPD type ([facility]) Alcohol dependence with unspecified alcohol-induced disorder ([facility]) History of cerebrovascular accident Transient ischemic attack (TIA), and cerebral infarction without residual deficits History of fall Personal history of fall Acute renal failure superimposed on chronic kidney disease, unspecified CKD stage, unspecified acute renal failure type Hyperkalemia Hyperpotassemia Acute UTI Urinary tract infection, site not specified H/O: CVA (cerebrovascular accident) Metabolic encephalopathy Neck pain Cervicalgia PAD (peripheral artery disease) ([facility]) Unspecified peripheral vascular disease PVD (peripheral vascular disease) ([facility]) Unspecified peripheral vascular disease Type 2 diabetes mellitus with stage 3b chronic kidney disease, with long-term current use of insulin ([facility]) Essential hypertension Unspecified essential hypertension ELBA (acute kidney injury) ([facility]) Closed displaced intertrochanteric fracture of right femur with routine healing, subsequent encounter ELBA (acute kidney injury) ([facility]) Urinary tract infection associated with indwelling urethral catheter ([facility]) Urinary retention Unspecified retention of urine COPD exacerbation ([facility] Primary Obstructive chronic bronchitis with exacerbation Acute exacerbation of chronic obstructive pulmonary disease (COPD) ([facility]) Obstructive chronic bronchitis with exacerbation Chronic kidney disease, unspecified CKD stage Fall Unspecified fall Rib pain on left side Acute hypoxemic respiratory failure ([facility]) Stage 3b chronic kidney disease ([facility]) Type 2 diabetes mellitus with stage 3b chronic kidney disease, with long-term current use of insulin ([facility]) PVD (peripheral vascular disease) ([facility]) Unspecified peripheral vascular disease Neurogenic claudication Spinal stenosis of lumbar region Dyslipidemia Other and unspecified hyperlipidemia Anemia due to stage 3a chronic kidney disease ([facility]) Essential hypertension Unspecified essential hypertension Essential tremor Chest pain, unspecified type- Primary History of CVA (cerebrovascular accident) Transient ischemic attack (TIA), and cerebral infarction without residual deficits Essential hypertension Unspecified essential hypertension PVD (peripheral vascular disease) ([facility]) Unspecified peripheral vascular disease History of carotid endarterectomy- Primary Other postprocedural status Stenosis of left carotid artery Occlusion and stenosis of carotid artery without mention of cerebral infarction Neurogenic claudication Spinal stenosis of lumbar region PAD (peripheral artery disease) ([facility]) Unspecified peripheral vascular disease Type 2 diabetes mellitus with stage 3b chronic kidney disease, with long-term current use of insulin ([facility]) Tobacco use documented in this encounter [facility] note* Diagnosis Bilateral carotid artery stenosis- Primary Occlusion and stenosis of carotid artery without mention of cerebral infarction PAD (peripheral artery disease) ([facility]) Unspecified peripheral vascular disease History of carotid endarterectomy Other postprocedural status Dyslipidemia Other and unspecified hyperlipidemia Claudication of lower extremity ([facility]) Neurogenic claudication- Primary Spinal stenosis of lumbar region PAD (peripheral artery disease) ([facility]) Unspecified peripheral vascular disease Claudication of lower extremity ([facility]) Bilateral carotid artery stenosis Occlusion and stenosis of carotid artery without mention of cerebral infarction History of carotid endarterectomy Other postprocedural status Occlusion and stenosis of right carotid artery Dyslipidemia Other and unspecified hyperlipidemia Fall, initial encounter- Primary Alcoholic intoxication with complication ([facility]) EtOH dependence ([facility]) Hyperkalemia Hyperpotassemia Acute renal failure superimposed on stage 4 chronic kidney disease, unspecified acute renal failure type ([facility]) Acute UTI Urinary tract infection, site not specified Closed displaced intertrochanteric fracture of right femur with routine healing, subsequent encounter Type 2 diabetes mellitus with stage 3b chronic kidney disease, with long-term current use of insulin ([facility]) Bilateral hip pain Pain in joint, pelvic region and thigh PVD (peripheral vascular disease) ([facility]) Unspecified peripheral vascular disease PAD (peripheral artery disease) ([facility]) Unspecified peripheral vascular disease Chronic obstructive pulmonary disease, unspecified COPD type ([facility]) Alcohol dependence with unspecified alcohol-induced disorder ([facility]) History of cerebrovascular accident Transient ischemic attack (TIA), and cerebral infarction without residual deficits History of fall Personal history of fall Acute renal failure superimposed on chronic kidney disease, unspecified CKD stage, unspecified acute renal failure type Hyperkalemia Hyperpotassemia Acute UTI Urinary tract infection, site not specified H/O: CVA (cerebrovascular accident) Metabolic encephalopathy Neck pain Cervicalgia PAD (peripheral artery disease) ([facility]) Unspecified peripheral vascular disease PVD (peripheral vascular disease) ([facility]) Unspecified peripheral vascular disease Type 2 diabetes mellitus with stage 3b chronic kidney disease, with long-term current use of insulin ([facility]) Essential hypertension Unspecified essential hypertension ELBA (acute kidney injury) ([facility]) Closed displaced intertrochanteric fracture of right femur with routine healing, subsequent encounter ELBA (acute kidney injury) ([facility]) Urinary tract infection associated with indwelling urethral catheter ([facility]) Urinary retention Unspecified retention of urine COPD exacerbation ([facility])- Primary Obstructive chronic bronchitis with exacerbation Acute [...] of insulin [facility] Diagnosis Rib pain- Primary Unspecified chest [...] prostate Vascular myelopathies Depression, major, in remission ([facility]) Chronic stable angina ([facility]) Chronic shortness of breath Hepatic steatosis Other [...] Thoracic aortic aneurysm without rupture, unspecified part ([facility]) Stage 3b chronic kidney disease (Multi) Stable angina pectoris ([facility]) Calculus of gallbladder without cholecystitis without obstruction Routine general medical examination at health care facility- Primary Routine general medical examination at a health care facility Superficial gastritis without hemorrhage, unspecified chronicity Weakness of upper extremity Weakness of both lower extremities Recurrent falls Neck pain Cervicalgia H/O: CVA (cerebrovascular accident) Essential tremor Neurogenic claudication Spinal stenosis of lumbar region Stable angina pectoris ([facility]) Hypertension associated with type 2 diabetes mellitus (Multi) Encounter for vaccination 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[facility]) Hypotensive episode Thrombocytopenia ([facility] Primary Unspecified thrombocytopenia Chronic obstructive pulmonary disease, unspecified Megaloblastic anemia Unspecified deficiency anemia Folate deficiency Other B-complex deficiencies Fatigue, unspecified type CRF (chronic renal failure), stage 3 (moderate) ([facility]) Type 2 diabetes mellitus with hyperglycemia, with long-term current use of insulin documented in this encounter [facility] Work Phone: Evaluation note* Diagnosis Bilateral carotid artery stenosis- Primary Occlusion and stenosis of carotid artery without mention of cerebral infarction PAD (peripheral artery disease) ([facility]) Unspecified peripheral vascular disease History of carotid endarterectomy Other postprocedural status Dyslipidemia Other and unspecified hyperlipidemia Claudication of lower extremity ([facility]) Neurogenic claudication- Primary Spinal stenosis of lumbar region PAD (peripheral artery disease) ([facility]) Unspecified peripheral vascular disease Claudication of lower extremity ([facility]) Bilateral carotid artery stenosis Occlusion and stenosis of carotid artery without mention of cerebral infarction History of carotid endarterectomy Other postprocedural status Occlusion and stenosis of right carotid artery Dyslipidemia Other and unspecified hyperlipidemia Fall, initial encounter- Primary Alcoholic intoxication with complication ([facility]) EtOH dependence ([facility]) Hyperkalemia Hyperpotassemia Acute renal failure superimposed on stage 4 chronic kidney disease, unspecified acute renal failure type ([facility]) Acute UTI Urinary tract infection, site not specified Closed displaced intertrochanteric fracture of right femur with routine healing, subsequent encounter Type 2 diabetes mellitus with stage 3b chronic kidney disease, with long-term current use of insulin ([facility]) Bilateral hip pain Pain in joint, pelvic region and thigh PVD (peripheral vascular disease) Unspecified peripheral vascular disease PAD (peripheral artery disease) ([facility]) Unspecified peripheral vascular disease Chronic obstructive pulmonary disease, unspecified COPD type ([facility]) Alcohol dependence with unspecified alcohol-induced disorder ([facility]) History of cerebrovascular accident Transient ischemic attack [...] documented in this encounter [facility] note* Diagnosis Rib pain- Primary Unspecified [...] major, in remission ([facility]-HCC) Chronic stable angina ([facility]) Chronic shortness of breath Hepatic steatosis Other chronic nonalcoholic liver disease H/O fall Abdominal pain, LUQ Abdominal pain, RUQ Hypertension associated with type 2 diabetes mellitus (Multi)- Primary Type 2 diabetes mellitus with other circulatory complication, with long-term current use of insulin Gait difficulty Abnormality of gait Muscle weakness of lower extremity Muscle weakness (generalized) Recurrent falls Centrilobular emphysema ([facility]) Screening for prostate cancer Special screening for malignant neoplasm of prostate Hypertriglyceridemia Pure hyperglyceridemia Anemia, unspecified type Non-pressure chronic ulcer of other part of right foot with fat layer exposed Vascular myelopathies Depression, major, in remission ([facility]) Thoracic aortic aneurysm without rupture, unspecified part ([facility] Stage 3b chronic kidney disease ([facility]) Stable angina pectoris ([facility]) Calculus of gallbladder without cholecystitis without obstruction Routine general medical examination at health care facility- Primary Routine general medical examination at a health care facility Superficial gastritis without hemorrhage, unspecified chronicity Weakness of upper extremity Weakness of both lower extremities Recurrent falls Neck pain Cervicalgia H/O: CVA (cerebrovascular accident) Essential tremor Neurogenic claudication Spinal stenosis of lumbar region Stable angina pectoris ([facility]) Hypertension associated with type 2 diabetes mellitus ([facility]) Encounter for vaccination 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[facility]) Hypotensive episode Routine general medical examination at health care facility- Primary Routine general medical examination at a health care facility Chronic obstructive pulmonary disease, unspecified COPD type (Multi) Essential tremor Type 2 diabetes mellitus with hyperglycemia, with long-term current use of insulin Hypertension associated with type 2 diabetes mellitus ([facility]) Mixed hyperlipidemia Thrombocytopenia ([facility]) Unspecified thrombocytopenia Folate deficiency Other B-complex deficiencies CRF (chronic renal failure), stage 3 (moderate) ([facility]) Chronic fatigue Other malaise and fatigue Anemia, unspecified type Weakness of both arms Other musculoskeletal symptoms referable to limbs Weakness of both legs Muscle weakness (generalized) Smoker Tobacco use disorder documented in this encounter [facility] Work Phone: Evaluation note* Diagnosis Bilateral carotid artery stenosis- Primary Occlusion and stenosis of carotid artery without mention of cerebral infarction PAD (peripheral artery disease) ([facility]) Unspecified peripheral vascular disease History of carotid endarterectomy Other postprocedural status Dyslipidemia Other and unspecified hyperlipidemia Claudication of lower extremity ([facility]) Neurogenic claudication- Primary Spinal stenosis of lumbar region PAD (peripheral artery disease) ([facility]) Unspecified peripheral vascular disease Claudication of lower extremity ([facility]) Bilateral carotid artery stenosis Occlusion and stenosis of carotid artery without mention of cerebral infarction History of carotid endarterectomy Other postprocedural status Occlusion and stenosis of right carotid artery Dyslipidemia Other and unspecified hyperlipidemia Fall, initial encounter- Primary Alcoholic intoxication with complication ([facility]) EtOH dependence ([facility]) Hyperkalemia Hyperpotassemia Acute renal failure superimposed on stage 4 chronic kidney disease, unspecified acute renal failure type ([facility]) Acute UTI Urinary tract infection, site not specified Closed displaced intertrochanteric fracture of right femur with routine healing, subsequent encounter Type 2 diabetes mellitus with stage 3b chronic kidney disease, with long-term current use of insulin ([facility]) Bilateral hip pain Pain in joint, pelvic region and thigh PVD (peripheral vascular disease) Unspecified peripheral vascular disease PAD (peripheral artery disease) ([facility]) Unspecified peripheral vascular disease Chronic obstructive pulmonary disease, unspecified COPD type ([facility]) Alcohol dependence with unspecified alcohol-induced disorder ([facility]) History of cerebrovascular accident Transient ischemic attack (TIA), and cerebral infarction without residual deficits History of fall Personal history of fall Acute renal failure superimposed on chronic kidney disease, unspecified CKD stage, unspecified acute renal failure type Hyperkalemia Hyperpotassemia Acute UTI Urinary tract infection, site not specified H/O: CVA (cerebrovascular accident) Metabolic encephalopathy Neck pain Cervicalgia PAD (peripheral artery disease) ([facility]) Unspecified peripheral vascular disease PVD (peripheral vascular disease) Unspecified peripheral vascular disease Type 2 diabetes mellitus with stage 3b chronic kidney disease, with long-term current use of insulin ([facility]) Essential hypertension Unspecified essential hypertension ELBA (acute kidney injury) Closed displaced intertrochanteric fracture of right femur with routine healing, subsequent encounter ELBA (acute kidney injury) Urinary tract infection associated with indwelling urethral catheter ([facility]) Urinary retention Unspecified retention of urine COPD exacerbation ([facility])- Primary Obstructive chronic bronchitis with exacerbation Acute exacerbation of chronic obstructive pulmonary disease (COPD) ([facility]) Obstructive chronic bronchitis with exacerbation Chronic kidney disease, unspecified CKD stage Fall Unspecified fall Rib pain on left side Acute hypoxemic respiratory failure ([facility]) Stage 3b chronic kidney disease ([facility]) Type 2 diabetes mellitus with stage 3b chronic kidney disease, with long-term current use of insulin ([facility]) PVD (peripheral vascular disease) Unspecified peripheral vascular [...] insulin (HCC)- Primary [facility] Diagnosis Rib pain- Primary Unspecified chest [...] prostate Vascular myelopathies Depression, major, in remission ([facility]) Chronic stable angina ([facility]) Chronic shortness of breath Hepatic steatosis Other [...] Thoracic aortic aneurysm without rupture, unspecified part ([facility]) Stage 3b chronic kidney disease (Multi) Stable angina pectoris ([facility]) Calculus of gallbladder without cholecystitis without obstruction Routine general medical examination at health care facility- Primary Routine general medical examination at a health care facility Chronic obstructive pulmonary disease, unspecified COPD type (Multi) Essential tremor Type 2 diabetes mellitus with hyperglycemia, with long-term current use of insulin Hypertension associated with type 2 diabetes mellitus (Multi) Mixed hyperlipidemia Thrombocytopenia ([facility]) Unspecified thrombocytopenia Folate deficiency Other B-complex deficiencies [...] Centrilobular emphysema (Multi) documented in this encounter [facility] Work Phone: Evaluation note* Diagnosis Bilateral carotid [...] Neck pain Cervicalgia PAD (peripheral artery disease) ([facility]) Unspecified peripheral vascular disease PVD (peripheral vascular disease) Unspecified peripheral vascular disease Type 2 diabetes mellitus with stage 3b chronic kidney disease, with long-term current use of insulin ([facility]) Essential hypertension Unspecified essential hypertension ELBA (acute kidney injury) Closed displaced intertrochanteric fracture of right femur with routine healing, subsequent encounter ELBA (acute kidney injury) Urinary tract infection associated with indwelling urethral catheter ([facility]) Urinary retention Unspecified retention of urine COPD exacerbation ([facility])- Primary Obstructive chronic bronchitis with exacerbation Acute exacerbation of chronic obstructive pulmonary disease (COPD) ([facility]) Obstructive chronic bronchitis with exacerbation Chronic kidney disease, unspecified CKD stage Fall Unspecified fall Rib pain on left side Acute hypoxemic respiratory failure ([facility]) Stage 3b chronic kidney disease ([facility]) Type 2 diabetes mellitus with stage 3b chronic kidney disease, with long-term current use of insulin ([facility]) PVD (peripheral vascular disease) Unspecified peripheral vascular disease Neurogenic claudication Spinal stenosis of lumbar region Dyslipidemia Other and unspecified hyperlipidemia Anemia due to stage 3a chronic kidney disease ([facility]) Essential hypertension Unspecified essential hypertension Essential tremor Chest pain, unspecified type- Primary History of CVA (cerebrovascular accident) Transient ischemic attack (TIA), and cerebral infarction without residual deficits Essential hypertension Unspecified essential hypertension PVD (peripheral vascular disease) Unspecified peripheral vascular disease Onychodystrophy- Primary Other specified disease of nail Onychomycosis Dermatophytosis of nail PVD (peripheral vascular disease) Unspecified peripheral vascular disease Diabetic foot ([facility]) Type II or unspecified type diabetes mellitus with other specified manifestations, not stated as uncontrolled Xerosis of skin [facility] noteNo assessment information availableWBet[facility] Work Phone: Evaluation note* Diagnosis Onset Date Resolution Status Admit Date Closed right ankle fracture acute April 17, 2025 9:12am [facility] Work Phone: History of Present illness Narrative* STEVO GERMAIN was seen for PT initial evaluation today [...] of motion/joint mobility, strength and transfers. [facility] Work Phone: History of Present illness NarrativeSBA with ambulation into clinic. Weakness noted with LE strengthening. Continued STM to decrease muscular tightness. SOB following sci-fit stepper. Fair quad eccentric control with STS transfers. V/inspector brake lining correct form with standing ther ex. [facility] [place] [id number] [place] Work Phone: History of Present illness NarrativeCGA with added neuro re-ed. Breaks and quick fatigue noted with Ambulation with cane in clinic. Continued palpable tenderness along R glute and hip flexor. [facility] [place] [id number] [employer] Work Phone: History of Present illness NarrativeWeakness noted with quad and hip strengthening. Breaks required with standing ther ex d/t fatigue and SOB. continued tightness R knee ext. Ambulated with cane through out Tx. C/o fatigue at end of Tx.[facility] [place] [address] [place] Work Phone: History of Present illness NarrativePt. arrived 12 mins late to appt. Held neuro re-ed this visit. Fair quad eccentric control with step ups and STS. Quick fatigue with standing ther ex. LOB with tandem stance. Palpable tenderness R glute and hip flexor.[facility] [place] [address] [place] Work Phone: History of Present illness NarrativeFair tolerance to ther ex. Weakness noted with hip strengthening. Continued lacking full R knee extension AROM. Palpable tenderness along R glute and hip flexor. Increased fatigue and SOB with all ofther ex compared to previous visits. Reviewed HEP. [facility] Work Phone: History of Present illness NarrativeLAB F/U.. CLEAR WATERY EYES WITH ITCHY EYES X SEVERAL WEEKS , NO CHANGE IN VISION. , WORSENING CHRONIC TREMOR . HASN'T BEEN TAKING THE PRIMIDONE ( FORGET TO TAKE IT) . HAS F/U WITH ENDO FOR DM2 .-[facility] Work Phone: History of Present illness Narrative* Fair tolerance to ther ex. Weakness noted with step ups requiring B UE assist. SOB and fatigue noted with standing ther ex. Continued Difficulty with ambulation sing cane with CGA. * Lorena Ochoa, PT, DPT, Cert DN updated goals this date with pt making good progress towards all stated POC goals. [facility] Work Phone: History of Present illness NarrativePt continues to have tightness with knee ext. Fair quad control wth step ups using UE assist. SBA with ambulation in clinic with cane. Improved gait pattern with cane this visit. No time for neuro re-ed this visit. Increased SOB this visit.[facility] Work Phone: History of Present illness NarrativeBreaks required with all standing ther ex. SOB following step ups. LOB with tandem stance. Continued tightness with L knee ext. Improved gait pattern with cane. Reviewed HEP. [facility] Work Phone: History of Present illness Narrative* Patient has made significant improvement in R hip AROM and strength, and has progressed towards more independent mobility. He is now using a cane for most household mobility, is able to get up and down independently without 's supervision. He continues to need supervisor [employer] with showering and is unable to ambulate [...] complete today's treatment with some difficulty. [facility] [address] Work Phone: History of Present illness NarrativeLAB F/U. PT QUIT ETOH AFTER HOSPITAL AND NH DISCHARGE, BUT STARTED TO DRINK AGAIN . ITCHY EYES , OLOPATADINE EYE DROP HELPED WITH CLEAR DISCHARGE FROM EYES , BUT NOT MUCH FOR ITCHY EYES . 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 HAS ROUTINE F/U WITH ENDO FOR DM2. HAD NO ANGINASINCE LAST VISIT WITH H/O ANGINA PECTORIS. PVD HAS BEEN STABLE.-[facility] Work Phone: History of [...] factors: none. * LAB F/U (DONE BY SAFETY ASSOCIATE ) . MEDICARE WELLNESS EXAM.. CRF , [...] factors: none. * LAB F/U (DONE BY SAFETY ASSOCIATE ) . MEDICARE WELLNESS EXAM.. CRF , CHRONIC ANGINA , DIABETIC NEUROPATHY NEUROPATHY ,HTN AND DM2 HAVE BEEN STABLE.. STILL DRINKS ETOH ,BUT LESS FREQUENT.(PER PT). [facility] Work Phone: History of Present illness [...] HAD ONE DRINK AFTER SEVERAL FEW MONTHS) .[facility] Work Phone: History of Present illness NarrativePatient identified by name and date of . Patient required rest breaks between sets and exercises due to fatigue. He ambulated into clinic with use of S/C with slow nilda. He verbalized good understanding of HEP with review and additional handouts. [facility] Work Phone: History of Present illness [...] decrease with reported increase in Sx. [facility] Work Phone: History of Present illness NarrativePatient identified by name and date of . [facility] Work Phone: History of Present illness NarrativePatient identified by name and date of . Per patient request treatment time reduced this date due to conflict in schedule. Patient was able to progress with standing exercises this date with addition of reps and step ups. He required seated rest breaks due to LE fatigue. [facility] Work Phone: History of Present illness Narrative* Mr. GERMAIN presents with signs and symptoms consistent with [...] with ADL s/IADL s and return to OF. * Clinical Presentation: Stable and/or uncomplicated characteristics. * Level of Complexity: low * Problem List: activity limitations, ADLs/IADLs/self care skills, balance, coordination, decreased functional level, fall risk, flexibility, gait/locomotion, motor function/control/tone, pain, participation restrictions, posture, range of motion/joint mobility, strength and transfers. [facility] Work Phone: Hospital Discharge instructions Additional Instructions Follow-up with orthopedics, you can take the boot off whenever you are sitting/lying down, use it for walking. Ice your ankle and knee, take Tylenol as needed for pain.[facility] Work Phone: Instructions* Name Dates Details Instructions not documented [facility] Work Phone: Instructions* Attachments The following attachments cannot be sent through Care Everywhere. * Diabetes: Foot Care ([place]uneian) documented in this encounterOhioHealthReason for referral (narrative)No reason for referral information availableWBethesda North Hospital Work Phone: Reason for visit Narrative* Initial Evaluation . muscle weakness of lower extremity M62.81, s/p R hip fracture Z87.81. * Referred by: Phyllis Mae MD [facility] Work Phone: Reason for visit NarrativeInitial Evaluation . BLE weakness and history of CVA. [facility] Work Phone: Instructions Name Dates Details Instructions not documented Name Dates Details Instructions not documented Name Dates Details Instructions not documented Name Dates Details Instructions not documented Assessments Diagnosis Anemia, unspecified type - P rimary Monoclonal gammopathy Monoclonal paraproteinemia Diagnosis Bilateral carotid artery rick nosis - Primary Occlusion and stenosis of carotid artery without mention of cerebral infarction PAD (peripheral artery disea se) ([facility]) Unspecified peripheral vascular disease History of carotid endartere ctomy Other postprocedural status Dyslipidemia Other and unspecified hyperlipidemia Claudication of lower extrem ity ([facility]) Diagnosis Abnormal stress test Other nonspecific abnormal cardiovascular system function study Diagnosis Anemia, unspecified type - P rimary Monoclonal gammopathy Monoclonal paraproteinemia Abdominal pain, unspecified abdominal location Diagnosis Anemia, unspecified type - P rimary Monoclonal gammopathy Monoclonal paraproteinemia Tobacco use disorder Diagnosis Neurogenic claudication Spinal stenosis of lumbar region PAD (peripheral artery disea se) ([facility]) Unspecified peripheral vascular disease Claudication of lower extrem ity ([facility]) Diagnosis Anemia, unspecified type - P rimary [...] Chronic obstructive pulmonary disease, unspecified COPD type ([facility])- Primary Cigarette Smoker Tobacco use disorder Screening for malignant neoplasm of respiratory organ Special screening for malignant neoplasm of the respiratory organs Diagnosis Facial numbness- Primary Disturbance of skin sensation Statin intolerance Abnormal stress test Other nonspecific abnormal cardiovascular system function study Diagnosis Pneumonia of left lower lobe due to infectious organism ([facility])- Primary Diagnosis Anemia, unspecified type- Primary Monoclonal gammopathy Monoclonal paraproteinemia Fatigue, unspecified type SOB (shortness of breath) Shortness of breath Diagnosis COPD exacerbation ([facility])- Primary Obstructive chronic bronchitis with exacerbation Diagnosis Abnormal stress test Other nonspecific abnormal cardiovascular system function study Diagnosis Stenosis of left carotid artery Occlusion and stenosis of carotid artery without mention of cerebral infarction History of right-sided carotid endarterectomy Diagnosis Stenosis of left iliac artery ([facility]) Atherosclerosis of telida arteries of the extremities, unspecified Diagnosis Inadequately controlled diabetes mellitus ([facility]) Type II or unspecified type diabetes mellitus without mention of complication, not stated as uncontrolled IDDM (insulin dependent diabetes mellitus) ([facility]) Dyslipidemia Other and unspecified hyperlipidemia Diagnosis Fall, initial encounter Alcoholic intoxication with complication ([facility]) Fall down stairs Accidental fall on or from other stairs or steps EtOH dependence ([facility]) Diagnosis Chest pain, unspecified type PVD (peripheral vascular disease) ([facility]) Unspecified peripheral vascular disease Diagnosis Screening for malignant neoplasm of respiratory organ Special screening for malignant neoplasm of the respiratory organs Cigarette Smoker Tobacco use disorder Diagnosis Closed fracture of multiple ribs of right side, initial encounter Closed fracture of multiple ribs of left side, initial encounter Closed extensive facial fractures, initial encounter ([facility]) Closed fracture of multiple ribs of both sides, initial encounter Closed fracture of left orbital floor, initial encounter ([facility]) Diagnosis Nipple pain Other sign and symptom in breast Diagnosis Abnormal stress test- Primary Other nonspecific abnormal cardiovascular system function study PAD (peripheral artery disease) ([facility]) Unspecified peripheral vascular disease PVD (peripheral vascular disease) ([facility]) Unspecified peripheral vascular disease Diagnosis Inadequately controlled diabetes mellitus ([facility])- Primary Type II or unspecified type diabetes mellitus without mention of complication, not stated as uncontrolled Dyslipidemia Other and unspecified hyperlipidemia Diagnosis Left carotid artery stenosis Stenosis of left iliac artery ([facility]) Atherosclerosis of telida arteries of the extremities, unspecified History of carotid endarterectomy Other postprocedural status Neurogenic claudication Spinal stenosis of lumbar region Diagnosis Tobacco use disorder Loss of weight Diagnosis Stenosis of left carotid artery- Primary Occlusion and stenosis of carotid artery without mention of cerebral infarction History of right-sided carotid endarterectomy Stenosis of left iliac artery ([facility]) Atherosclerosis of telida arteries of the extremities, unspecified Neurogenic claudication Spinal stenosis of lumbar region Diagnosis Type 2 diabetes mellitus without complications ([facility]) Diagnosis Anemia, unspecified type- Primary Monoclonal gammopathy Monoclonal paraproteinemia Diagnosis Prominent abdominal aortic pulse History of Present Illness * Guillermo Branham MD - 09/28/2018 9:42 AM EST Formatting of this note may be different from the original. CLINIC FOLLOW UP PATIENT: Stevo Germain : 1950 AGE: 68 y.o. SEX: male RACE: [1] PCP: Jose Dailey MD REFERRAL: No ref. provider found HPI Reports anxiety secondary to recent diagnosis of ovarian malignancy in a sister who is being discharged to hospice and another sister post PEA/ hypoxic encephalopathy both at [facility]. HEMATOLOGIC HX Has been a diabetic [...] h/o remote trauma) 12/18/2017 endoscopy performed at [facility] by indicates no abnormality, colonoscopy demonstrates the prostate to be 2+ non nodular, sessile 3 mm polyp within the proximal ascending colon. 12/20/2017 H&H is 12.1/35, MCV is 102.4, serum protein electrophoresis demonstrates a normal pattern, serum kappa free light chain is elevated however ratio is normal, serum immunofixation does not demonstrate any evidence of paraprotein. ALLERGIES Allergies [facility]ergen [facility]actions [facility] has a current medication list which includes the following prescription(s): aclidinium bromide, albuterol, albuterol, clopidogrel, cyanocobalamin, famotidine, fluticasone-salmeterol, folic acid,gemfibrozil, lantus solostar u- 100 insulin, lisinopril, loratadine, metformin, multivitamin with minerals, ondansetron, pantoprazole, pregabalin, propranolol, sodium bicarbonate, spiriva with handihaler, cilostazol, diphenoxylate-atropine, lovastatin, and oxycodone-acetaminophen. PMH/PSH Past Medical History: Diagnosis Date Arthritis Carotid artery occlusion CKD (chronic kidney disease) Stage III Claudication ([facility]) COPD (chronic obstructive pulmonary disease) ([facility]) Diabetes mellitus (HCC) Essential tremor History of pneumonia Hyperlipidemia Hypertension Leg cramps MGUS (monoclonal gammopathy of unknown significance) Peptic ulcer disease PVD (peripheral vascular disease) ([facility]) Rhabdomyolysis 2010 Stroke (HCC) 2010 R side [...] Years of education: N/A Occupational History Disability [employer]in ([employer]) Social History Main Topics Smoking status: Current [...] to participate in the care of Stevo Germain. GUILLERMO BRANHAM MD Template Design PNSHETH in this encounter* Lola Barksdale MD - 01/22/2019 2:41 PM EDT HPI: Stevo Germain is a 68 y.o. male [id number] smoker currently smoking half pack a day [...] and Tudorza Pressair. I explained to Mr. Germain that he can only use 1 form [...] organ F17.210 Cigarette Smoker COMPARISON: 01/11/2018 at [facility] in [place] and 09/17/2010 from [place]. FINDINGS: There are a couplet of perifissural [...] he develops problems. in this encounter* Aquiles Bay MD - 04/01/2019 1:48 PM EDT [facility] [address] ([address]) [facility] [address] [facility] [id number] Subjective: Stevo Germain is a 69 y.o. male seen in [...] reviewed. Normal LV function No history of MS. Stage III-IV renal insufficiency Remote history of CVA Follows with vascular hospitalized in January of 2017 at [facility] in [place]. He had nausea and some abdominal pain, warm feeling from his head down through his body, perhaps some chest discomfort. Difficult historian. Troponins were negative. Underwent a nuclear stress test in [place] on February 22, 2017. Again noted was a medium size mild intensity partially reversible defect involving the apical mid and basalinferior wall thought probably due to a secondary diaphragmatic attenuation artifact. Ejection fraction was intact 72%. Some septal hypokinesis was noted. This is similar to the nuclear stress test he had back in 2014 at [facility]. History of CVA, ambulates slowly. History of [...] CKD (chronic kidney disease) Stage III Claudication ([facility]) COPD (chronic obstructive pulmonary disease) ([facility]) Diabetes mellitus (HCC) Essential tremor History of [...] in about 6 months (around 10/01/2019). Aquiles Bay MD * Kiana Cheatham MA - 04/01/2019 [...] not nervous/anxious. documented in this encounter* Guillermo Branham MD - 05/27/2019 11:23 AM EDT CLINIC FOLLOW UP PATIENT: Stevo Germain : 1950 AGE: 69 y.o. SEX: male [...] h/o remote trauma) 12/18/2017 endoscopy performed at [facility] by indicates no abnormality, colonoscopy demonstrates the prostate to be 2+ non nodular, sessile 3 mm polyp within the proximal ascending colon. 12/20/2017 H&H is 12.1/35, MCV is 102.4, serum protein electrophoresis demonstrates a normal pattern, serum kappa free light chain is elevated however ratio is normal, serum immunofixation does not demonstrate any evidence of paraprotein. ALLERGIES Allergies Allergen Reactions Chantix [Varenicline] [facility] has a current medication list which [...] CKD (chronic kidney disease) Stage III Claudication ([facility]) COPD (chronic obstructive pulmonary disease) ([facility]) Diabetes mellitus ([facility]) Essential tremor History of pneumonia Hyperlipidemia Hypertension Leg cramps MGUS (monoclonal gammopathy of unknown significance) Peptic ulcer disease PVD (peripheral vascular disease) ([facility]) Rhabdomyolysis 2010 Stroke ([facility]) 2010 R side Past Surgical History: Procedure [...] on file Occupational History Occupation: Disability Comment: [employer] ([employer]) Social Needs Financial resource strain: Not on [...] file Gets together: Not on file Attends mosque service: Not on file Active member of [...] to participate in the care of Stevo Germain. GUILLERMO BRANHAM MD Template Design PNSHETH documented in this encounter* [place] MD - 10/24/2019 4:11 PM EST [facility] [address] ([address]) [facility] [address] [facility] [phone] Subjective: Stevo Germain is a 69 y.o. male seen in the office today for Chief Complaint Patient presents with Follow-up 6 mo ov Overview of Problems Addressed: Problem Abnormal Stress Test Dobutamine stress echo October 2018 negative for ischemia at a very low submaximal heart rate reviewed. Normal LV function No history of MS. Stage III renal insufficiency Remote history of CVA Follows with vascular. hospitalized in January of 2017 at [facility] in [place]. He had nausea and some abdominal pain, warm feeling from his head down through his body, perhaps some chest discomfort. Difficult historian. Troponins were negative. Underwent a nuclear stress test in [place] on February 22, 2017. Again noted was a medium size mild intensity partially reversible defect involving the apical mid and basalinferior wall thought probably due to a secondary diaphragmatic attenuation artifact. Ejection fraction was intact 72%. Some septal hypokinesis was noted. This is similar to the nuclear stress test he had back in 2014 at [facility]. History of CVA, ambulates slowly. History of [...] chest pains. Said he recently stated a [place] had to walk up 2 flights of stairs on a regular basis. Denies significant shortness of breath with that. Does have some discomfort in his legs calves bilaterally polyneuropathy no clear-cut claudication symptoms will be following up with vascular near future cardiac exam unremarkable. Blood pressure is elevated [id number] pulse 78 and regular O2 sat 96%. We will go ahead and add amlodipine 2.5 mg daily for his blood pressure. Previous stress testing reviewed no history of MS no history of heart catheterization. History of [...] CKD (chronic kidney disease) Stage III Claudication ([facility]) COPD (chronic obstructive pulmonary disease) ([facility]) Diabetes mellitus ([facility]) Essential tremor History of pneumonia Hyperlipidemia Hypertension Leg cramps MGUS (monoclonal gammopathy of unknown significance) Peptic ulcer disease PVD (peripheral vascular disease) ([facility]) Rhabdomyolysis 2010 Stroke ([facility]) 2010 R side Past Surgical History: Procedure [...] in about 4 months (around 02/23/2020). [place] MD * Katalina Marie MA - 10/24/2019 [...] 12/27/2019 11:03 AM EST Patient ID: Stevo Germain is a 69 y.o. male 1950 Subjective: Stevo Germain presents for evaluation of Type 2 diabetes [...] Elli Plus test strp strips blood-glucose meter [facility] Comprehensive Metabolic Panel Hemoglobin A1c CBC and [...] within last 12 months: yes Date: 11/18 Director Of Global Talent/Endoscopy Technican: Dr. Lepe Other Ophthalmologic Conditions: S/P Right [...] of CAD, PVD Follows routinely with: Dr. Bay Respiratory: Positive History of COPD, continues to smoke [address] Jesus Barksdale. 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 Branham for chronic anemia. Plan: 1. Rx changes: [...] Call if BG consistently <70 or >250. [phone] Patient has been checking blood glucoses 2 [...] Clair Joaquin - 04/14/2020 1:10 PM EDT Resource Management Planner Care Note: Resource Management Planner responded to Level 2 Trauma. Medical staff attending to patient upon arrival. No family present. Pastoral Care Team will remain available to support patient and family PRN. Chaplain Clair Joaquin MDiv [facility] Pastoral Care Department [phone] office [phone] pager [phone] on-call pager (after 5pm and weekends) 04/14/20 1310 Clinical Encounter Type Visit Type Crisis Crisis Visit Trauma 2;Stroke Alert Visited With Patient not available Visited By Other (comment) () Visit Length (minutes) 5 Referral From Trauma documented in this encounter* Aquiles Bay MD - 11/23/2020 1:43 PM EST Telephone Visit Via Phone Call [facility] [address] ([address]) [facility] [address] [facility] [phone] Telephone Visit [facility] 11/23/2020 Aquiles Bay MD Provider Location: [place] Patient Location Pump Service Supervisor: None Patient Location: Patient's Home Patient: Stevo Germain Date of : 1950 (70 y.o. male) [...] there are inherent diagnostic limitations compared to [id number] evaluations. We elected toproceed with the telephone [...] kidney disease), COPD (chronic obstructive pulmonary disease) ([facility]), Diabetes mellitus ([facility]), Essential tremor, History of pneumonia, Hyperlipidemia, Hypertension, Leg cramps, Leg heaviness, MGUS (monoclonal gammopathy of unknown significance), Peptic ulcer disease, PVD (peripheral vascular disease) ([facility]), Rhabdomyolysis (2009), and Stroke ([facility]) (2009). He has a past surgical history [...] Abnormal stress test PAD (peripheral artery disease) (HCC) PVD (peripheral vascular disease) (HCC) Other orders - clopidogreL (PLAVIX) 75 mg [...] 08/03/2020 11:15 AM EDT Patient ID: Stevo Germain is a 70 y.o. male 1950 Subjective: Stevo Germain presents for evaluation of Type 2 diabetes Patient has had diabetes for 15 years. Diagnosed in 2004 Patient has taken Insulin for 10 years. Patient has been following with Dr. Carmelita MD. Mr. Germain is a 70-year-old male patient that presents [...] within last 12 months: yes Date: 11/18 Director Of Global Talent/Endoscopy Technican: Dr. Lepe Other Ophthalmologic Conditions: S/P Right [...] of CAD, PVD Follows routinely with: Dr. Bay, last seen in 03/2020. Biannual follow-up Respiratory: Positive History of COPD, continues to smoke [address] Jesus Barksdale. 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 Branham for chronic anemia. Plan: 1. Rx changes: [...] Call if BG consistently <70 or >250. [phone] Patient has been checking blood glucoses 2 [...] claudication Plan: At the present time, Mr. Germain is stable regarding his carotid disease and [...] testing with Jo Montenegro NP. Subjective: Stevo Germain is a 69 y.o. male seen in the office today for follow up regarding carotid artery disease and left iliac artery stenosis. Mr. Germain (birthday 1950) was seen in the office [...] CKD (chronic kidney disease) Stage III Claudication ([facility]) COPD (chronic obstructive pulmonary disease) ([facility]) Diabetes mellitus ([facility]) Essential tremor History of pneumonia Hyperlipidemia Hypertension Leg cramps Leg heaviness MGUS (monoclonal gammopathy of unknown significance) Peptic ulcer disease PVD (peripheral vascular disease) ([facility]) Rhabdomyolysis 2010 Stroke ([facility]) 2010 R side Past Surgical History: Procedure [...] Exercise Plan: At the present time, Mr. Germain is stable with regards to his carotid [...] 11/28/2019) for Recheck with testing. Subjective: Stevo Germain is a 68 y.o. male seen in the office today for follow up regarding carotid artery disease. Mr. Germain (birthday 1950) was seen in the office today on November 28, 2018. He presents at the request of his rating officer (Dr. Bay). He had undergone a carotid duplex scan and abdominal aortic duplex scan on November 18, 2018. Mr. Germain had been seen in our office in the past. He was last seen in April 2017. He was scheduled to be seen in March 2018, but canceled that visit. He is a long-term smoker (1 pack a day). He had been seen by Dr. Menjivar in the [place] office, but that is been several months [...] CKD (chronic kidney disease) Stage III Claudication ([facility]) COPD (chronic obstructive pulmonary disease) ([facility]) Diabetes mellitus ([facility]) Essential tremor History of pneumonia Hyperlipidemia Hypertension Leg cramps MGUS (monoclonal gammopathy of unknown significance) Peptic ulcer disease PVD (peripheral vascular disease) ([facility]) Rhabdomyolysis 2010 Stroke ([facility]) 2010 R side Past Surgical History: Procedure [...] of 438 cm/s. in this encounter* Guillermo Branham MD - 01/25/2019 9:17 AM EDT CLINIC FOLLOW UP PATIENT: Stevo Germain : 1950 AGE: 68 y.o. SEX: male [...] h/o remote trauma) 12/18/2017 endoscopy performed at [facility] by indicates no abnormality, colonoscopy demonstrates the prostate to be 2+ non nodular, sessile 3 mm polyp within the proximal ascending colon. 12/20/2017 H&H is 12.1/35, MCV is 102.4, serum protein electrophoresis demonstrates a normal pattern, serum kappa free light chain is elevated however ratio is normal, serum immunofixation does not demonstrate any evidence of paraprotein. ALLERGIES Allergies Allergen Reactions Chantix [Varenicline] [facility] has a current medication list [...] Peptic ulcer disease PVD (peripheral vascular disease) ([facility]) Rhabdomyolysis 2010 Stroke (HCC) 2010 R side [...] non-medical: None Occupational History Occupation: Disability Comment: [employer] ([place]) Tobacco Use Smoking status: Current Every Day [...] to participate in the care of Stevo Germain. GUILLERMO BRANHAM MD Template Design PNSHETH in this encounter* Jasmyn Barnes MSW LSW - 02/17/2020 2:16 PM EDT [...] Further Action Completed: none KRISTI Callahan, JAYDEN Button Breaker Operator Primary Care [facility] Care Management documented in this encounter [...] Z82.5) Status:Active Family history of type 2 snushine betes mellitus: Sister(V18.0, Z83.3) Status:Active Family history [...] FoundDocuments on File Type Date Recorded Patient Orthotic/Prosthetic Clinician Expl anation Advance Directives and Livin g Will 11/13/2018 12:00 AM Documents on File Type Date Recorded Patient Orthotic/Prosthetic Clinician Expl anation Advance Directives and Livin g Will 05/27/2019 11:55 AM Documents on File Type Date Recorded Patient Orthotic/Prosthetic Clinician Expl anation Advance Directives and Livin g Will 06/05/2019 12:41 PM Documents on File Type Date Recorded Patient Orthotic/Prosthetic Clinician Expl anation Advance Directives and Livin g Will 12/04/2019 12:47 PM Documents on File Type Date Recorded Patient Orthotic/Prosthetic Clinician Expl anation Advance Directives and Livin g Will 12/04/2019 12:47 PM Documents on File Type Date Recorded Patient Orthotic/Prosthetic Clinician Expl anation Advance Directives and Livin g Will 04/14/2020 1:37 PM Documents on File Type Date Recorded Patient Orthotic/Prosthetic Clinician Expl anation Advance Directives and Livin g Will 12/04/2019 12:47 PM Advance Directives and Livin g Will 04/14/2020 1:37 PM Documents on File Type Date Recorded Patient Orthotic/Prosthetic Clinician Expl anation Advance Directives and Livin g Will 12/04/2019 12:47 PM Advance Directives and Livin g Will 05/25/2020 12:00 AM Documents on File Type Date Recorded Patient Orthotic/Prosthetic Clinician Expl anation Advance Directives and Livin g Will 12/04/2019 12:47 PM Advance Directives and Livin g Will 06/10/2020 6:41 PM Documents on File Type Date Recorded Patient Orthotic/Prosthetic Clinician Expl anation Advance Directives and Livin g Will 12/04/2019 12:47 PM Advance Directives and Livin g Will 08/31/2020 6:41 PM Documents on File Type Date Recorded Patient Orthotic/Prosthetic Clinician Expl anation Advance Directives and Livin g Will 12/04/2019 12:47 PM Advance Directives and Livin g Will 08/31/2020 6:41 PM Documents on File Type Date Recorded Patient Orthotic/Prosthetic Clinician Expl anation Advance Directives and Livin g Will 12/04/2019 12:47 PM Advance Directives and Livin g Will 01/11/2021 12:23 PM Documents on File Type Date Recorded Patient Orthotic/Prosthetic Clinician Expl anation Advance Directives and Livin g Will 12/04/2019 12:47 PM Advance Directives and Livin g Will 03/08/2021 12:23 PM Latest Code Status on File Code Status Date Activated Date Inactivated Comments Full Code 03/08/2021 5:11 PM 03/12/2021 8:19 PM Documents on File Type Date Recorded Patient Orthotic/Prosthetic Clinician Expl anation Advance Directives and Livin g Will 03/08/2021 12:23 PM Advance Directives and Livin g Will 12/04/2019 12:47 PM Documents on File Type Date Recorded Patient Orthotic/Prosthetic Clinician Expl anation Advance Directives and Livin g [...] Documents on File Type Date Recorded Patient Orthotic/Prosthetic Clinician Expl anation Advance Directives and Livin g [...] Documents on File Type Date Recorded Patient Orthotic/Prosthetic Clinician Expl anation Advance Directives and Livin g [...] Agents on File Name Relationship Healthcare Agent Lyndonhi p Communication Isabelle Dunham Spouse Health Care Agent Healthcare Agents on File Name Relationship Healthcare Agent Lyndonhi p Communication Isabelle Dunham Spouse Health Care Agent Advance Directive Response Recorded Date/ Time Do you have a Healthcare Power of Marketing And Promotions Manager? Yes April 10, 2025 3:33pm Name of Medical Power of Marketing And Promotions Manager CESAR MARCIAL April 10, 2025 3:33pm Reason for Referral Status Reason Specialty Diagnoses / Procedures Re ferred By Contact Referred To Contact Closed Cardiology Diagnoses Chest pain, unspecified type Procedures Dobutamine stress echocardiogram [place] MD [address] [address] Status Reason Specialty Diagnoses / Procedures Referre d By Contact Referred To Contact Closed Cardiology Diagnoses Bilateral carotid artery stenosis Procedures Carotid Duplex [place] MD [address] [address] Status Reason Specialty Diagnoses / Procedures Referre d By Contact Referred To Contact Closed Radiology Diagnoses Screening for malignant neoplasm of respiratory organ Cigarette Smoker Procedures CT Lung Cancer Screening Lola Barksdale MD [address] [place] [address] Status Reason Specialty Diagnoses / Procedures Referred By Contact Referred To Contact Pending Review Radiology Diagnoses Cigarette Smoker Screening for malignant neoplasm of respiratory organ Procedures CT Lung Cancer Screening Lola Barksdale MD [address] [place] [address] Status Reason Specialty Diagnoses / Procedures Re ferred By Contact Referred To Contact Closed Cardiology Diagnoses Stenosis of left carotid artery History of right-sided carotid endarterectomy Procedures Carotid Duplex Cameron Munguia III, DO [address] [place] [address] Status Reason Specialty Diagnoses / Procedures Referre d By Contact Referred To Contact Closed Cardiology Diagnoses Stenosis of left iliac artery (HCC) Procedures Segmental Doppler Lower Extremity Arterial W Exercise Cameron Munguia III, DO [address] [place] [address] Status Reason Specialty Diagnoses / Procedures Referre d By Contact Referred To Contact Closed Radiology Diagnoses Chest pain, unspecified type PVD (peripheral vascular disease) (HCC) Procedures NM Myocardial Perfusion Multiple SPECT [place] MD [address] [address] Status Reason Specialty Diagnoses / Procedures Referre d By Contact Referred To Contact Closed Radiology Diagnoses Screening for malignant neoplasm of respiratory organ Cigarette Smoker Procedures CT Lung Cancer Screening Lola Barksdale MD [address] [place] [address] Status Reason Specialty Diagnoses / Procedures Referre d By Contact Referred To Contact Closed Radiology Diagnoses Nipple pain Procedures Mammography Diagnostic Bilateral Phyllis Mae MD [address] [place] [address] Status Reason Specialty Diagnoses / Procedures Re ferred By Contact Referred To Contact Pending Review Cardiology Diagnoses Left carotid artery stenosis History of carotid endarterectomy Procedures Carotid Duplex Cameron Munguia III, DO [address] [place] [address] Status Reason Specialty Diagnoses / Procedures Re ferred By Contact Referred To Contact Authorized Cardiology Diagnoses Stenosis of left carotid artery History of right-sided carotid endarterectomy Procedures Carotid Duplex Cameron Munguia III, DO [address] [place] [address] Status Reason Specialty Diagnoses / Procedures Referred By Contact Referred To Contact Authorized Cardiology Diagnoses Stenosis of left iliac artery (HCC) Procedures Segmental Doppler Lower Extremity Arterial W Exercise Cameron Munguia III, DO [address] [place] [address] Status Reason Specialty Diagnoses / Procedures Referred By Contact Referred To Contact Closed Vascular Surgery / Cardiology Diagnoses Chest pain, unspecified type Bilateral carotid artery stenosis [place] MD [address] [address] Cameron Munguia III, DO [address] [place] [phone] Status Reason Specialty Diagnoses / Procedures Referre d By Contact Referred To Contact Closed Cardiology Diagnoses Prominent abdominal aortic pulse Procedures Ultrasound abdominal aorta duplex limited [place] MD [address] [address] Status Reason Specialty Diagnoses / Procedures Referred By Contact Referred To Contact Pending Review Patient Preference Home Health Services Diagnoses Acute UTI Metabolic encephalopathy Neck pain PAD (peripheral artery disease) ([facility]) PVD (peripheral vascular disease) ([facility]) Type 2 diabetes mellitus with stage 3b chronic kidney disease, with long-term current use of insulin ([facility]) Essential hypertension ELBA (acute kidney injury) ([facility]) Bryce Alvarez MD [address] [place] [phone] Specialty Diagnoses / Procedures Referred By Contac t Referred To Contact Cardiology Diagnoses GREEN (dyspnea on exertion) Procedures Echocardiogram complete [place] MD [address] [address] Referral ID Status Reason Start Date Expiration Date V isits Requested Visits Authorized [id number] Pending Review 06/02/2022 06/02/2023 1 1 Specialty Diagnoses / Procedures Referred By Contac t Referred To Contact Wound Care Diagnoses Non-pressure chronic ulcer of left lower leg, limited to breakdown of skin ([facility]) Christopher Galindo PA-C [address] [place] [phone] Maureen Brown MD [address] [facility] [address] [place] [phone] Referral ID Status Reason Start Date Expiration Date Visits Requested Visits Authorized [id number] Authorized Specialty Services Required/Pat kp's Best Interest 11/10/2022 11/10/2023 1 1 Specialty Diagnoses / Procedures Referred By Contac t Referred To Contact Radiology Diagnoses 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HCC) Procedures NM Brain Datscan SPECT CT Single Area Single Day Deshaun Rodrigues MD [address] [address] Nuclear Medicine [address] [place] [address] Referral ID Status Reason Start Date Expiration Date V isits Requested Visits Authorized [id number] New Request 04/05/2023 04/04/2024 4 4 Specialty Diagnoses / Procedures Referred By Karenac t Referred To Contact Podiatry Diagnoses Diabetic polyneuropathy associated with type 2 diabetes mellitus (HCC) Deshaun Rodrigues MD [address] [facility] [place] [phone] BHUMIKA Lin, DPM [address] [facility] [address] [address] Referral ID Status Reason Start Date Expiration Date V isits Requested Visits Authorized [id number] Pending Review 10/11/2023 10/10/2024 1 1 Specialty Diagnoses / Procedures Referred By Contac t Referred To Contact Home Health Services Diagnoses Gait difficulty Muscle weakness of lower extremity Recurrent falls Phyllis Mae MD [address] [place] [address] [place] [address] [place] [address] Referral ID Status Reason Start Date Expiration Date Visits Requested Visits Authorized [id number] Pending Review Specialty Services Required 12/14/2023 12/13/[phone] Specialty Diagnoses / Procedures Referred By Karenac t Referred To Contact Cardiology Diagnoses Diabetic foot (HCC) PVD (peripheral vascular disease) (HCC) Type 2 diabetes mellitus with stage 3b chronic kidney disease, with long-term current use of insulin (HCC) Claudication of lower extremity (HCC) Tobacco use Xerosis of skin Onychodystrophy Procedures Segmental Doppler Lower Extremity Arterial BHUMIKA Lin, DPM [address] [place] [address] [facility] Cristi 335 [facility] [address] Referral ID Status Reason Start Date Expiration Date V isits Requested Visits Authorized [id number] Authorized 12/19/2023 12/18/2024 1 1 Specialty Diagnoses / Procedures Referred By Contac t Referred To Contact Home Health Services Diagnoses Weakness of upper extremity Weakness of both lower extremities Recurrent falls Neck pain H/O: CVA (cerebrovascular accident) Essential tremor Neurogenic claudication Phyllis Mae MD [address] [place] [address] [facility] [address] [place] [address] Referral ID Status Reason Start Date Expiration Date Visits Requested Visits Authorized [id number] Pending Review Specialty Services Required 02/27/2024 02/26/[phone] Specialty Diagnoses / Procedures Referred By Contac t Referred To Contact Hematology and Oncology Diagnoses Thrombocytopenia ([facility]) Phyllis Mae MD [address] [place] [address] Referral ID Status Reason Start Date Expiration Date Visits Requested Visits Authorized [id number] Authorized Specialty Services Required 07/25/2024 07/25/2025 1 1 Specialty Diagnoses / Procedures Referred By Contac t Referred To Contact Radiology Diagnoses Thrombocytopenia (CMS-HCC) Procedures US abdomen limited liver Phyllis Mae MD [address] [place] [address] Referral ID Status Reason Start Date Expiration Date Visits Requested Visits Authorized [id number] Authorized Perform Procedure 07/25/2024 07/25/2025 1 1 Specialty Diagnoses / Procedures Referred By Adrianna t Referred To Contact Home Health Services Diagnoses Chronic obstructive pulmonary disease, unspecified Phyllis Mae MD [address] [place] [address] Referral ID Status Reason Start Date Expiration Date Visits Requested Visits Authorized [id number] Authorized Specialty Services Required 07/25/2024 07/25/2025 999 [...] be sent through Care Everywhere. * Pneumonia (Bruneian) documented in this encounter* Instructions* Silvia Ken [...] Log into your personal health record on [email or web address] and enter K111 in the "Education" box to learn more about "Using a Metered-Dose Inhaler: Care Instructions." Current as of: July 04, 2018 Content Version: [id number] [employer]. Care instructions adapted under license by your healthcare professional. If you have questions about a medical condition or this instruction, always ask your healthcare professional. [employer] disclaims any warranty or liability for your use of this information. Avoiding COPD Triggers (01:49) Your health professional recommends that you watch this short online health video. Learn how to avoid the things that make your COPD symptoms worse. How to watch the video Scan the QR code OR Visit the website [email or web address] Current as of: July 04, 2018 Content Version: . [employer]. Care instructions adapted under license by your healthcare professional. If you have questions about a medical condition or this instruction, always ask your healthcare professional. [employer] disclaims any warranty or liability for your use of this information. Breathing treatments as prescribed. Continue antibiotics. * Attachments The following attachments cannot be sent through Care Everywhere. * COPD Exacerbation Plan (Bruneian) documented in this encounter* Attachments The following attachments cannot be sent through Care Everywhere. * Alcohol Use Disorder: General Info (Bruneian) * Fall Prevention (Bruneian) documented in this encounter* Instructions* Ray Scherer MD - 06/10/2020 Hold ASA and Plavix til the * Attachments The following attachments cannot be sent through Care Everywhere. * Rib Fracture (Bruneian) * Facial Fracture (Bruneian) documented in this encounter Chief Complaint F/U HOSPITAL/[facility]PC. HAS BEEN B/P MEDS X 2 WEEKS. AT HOSPITAL CALLED IN TRAMADOL BUT IT ISNOT CONTROLLING THE PAIN. THE HOSPITAL D/C A LOT OF HIS MEDS AND PT AND HIS WANTS TO DISCUSS TO YOU.F/U HOSPITAL/[facility]PC. HAS BEEN B/P MEDS X 2 WEEKS. AT HOSPITAL CALLED IN TRAMADOL BUT IT ISNOT CONTROLLING THE PAIN. THE HOSPITAL D/C A LOT OF HIS MEDS AND PT AND HIS WANTS TO DISCUSS TO YOU.1 MO FU SPINE AND NECK XRAYS1 MONTH F/U. DOING PT 3 TIMES A WEEK1 MONTH F/U. DOING PT 3 TIMES A WEEK3 WEEK F/U WITH LABS. SAFETY ASSOCIATE D/C NIFEDIPINE LAST WEEK DUE TO LOW B/P. PATIENT CONTINUES PHYSICAL THERAPY FOR LOW BACK PAIN WHICH HAS BEEN BENEFICIAL. STILL HAS TROUBLE SLEEPING AT NIGHT BUT TRAZODONE DOES HELP. C/O ITCHY AND WATERY EYES FOR THE LAST COUPLE WEEKS - VISINE TX WITH NO RELIEF.3 WEEK F/U WITH LABS. SAFETY ASSOCIATE D/C NIFEDIPINE LAST WEEK DUE TO LOW B/P. PATIENT CONTINUES PHYSICAL THERAPY FOR LOW BACK PAIN WHICH HAS BEEN BENEFICIAL. STILL HAS TROUBLE SLEEPING AT NIGHT BUT TRAZODONE DOES HELP. C/O ITCHY AND WATERY EYES FOR THE LAST COUPLE WEEKS - VISINE TX WITH NO RELIEF.3 WEEK F/U WITH LABS. SAFETY ASSOCIATE D/C NIFEDIPINE LAST WEEK DUE TO LOW [...] Reason for Visit Chief Complaint Admit Date [facility] LAB WORK January 27, 2025 4 :00am Chief Complaint Admit Date [facility] LAB WORK January 27, 2025 4 :00am [facility] LAB WORK February 19, 2025 8 :10am [facility] LAB WORK February 23, 2025 5 :50pm R KNEE AND ANKLE PAIN, HYPOTENSION April 10, 2025 3:16pm Chief Complaint Admit Date [facility] LAB WORK January 27, 2025 4 :00am [facility] LAB WORK February 19, 2025 8 :10am [facility] LAB WORK February 23, 2025 5 :50pm R KNEE AND ANKLE PAIN, HYPOTENSION April 10, 2025 3:16pm [facility] LAB WORK April 16, 2025 4: 00am RIGHT FIBULA April 17, 2025 9:12 am Reason for Visit Admit Date Closed right ankle fracture April 17, 2 025 9:12am Chief Complaint Admit Date R KNEE AND ANKLE PAIN, HYPOTENSION April 10, 2025 3:16pm [facility] LAB WORK April 16, 2025 4: 00am RIGHT FIBULA April 17, 2025 9:12 am [facility] LAB WORK April 22, 2025 5: 00am LABWORK May 28, 2025 5:00 am LABWORK May 30, 2025 5:0 0am [facility] LAB WORK June 11, 2025 5:00am Additional Source Comments Assessment & Plan Note [...] chest pains. Said he recently stated a [place]spot[place] had to walk up 2 flights of [...] Previous stress testing reviewed no history of MS no history of heart catheterization. History of [...] PCP . 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 documented in this encounter Associated Problem(s): Closed [...] cell attenuation consistent with hemorrhage. Transfer from [place] for Trauma tertiary evaluation. Loading CT head, [...] unspecified type Procedures Dobutamine stress echocardiogram [place] MD [address] [address] Status Reason Specialty Diagnoses / Procedures Referre d By Contact Referred To Contact Closed Cardiology Diagnoses Bilateral carotid artery stenosis Procedures Carotid Duplex [place] MD [address] [address] Status Reason Specialty Diagnoses / Procedures Referre d By Contact Referred To Contact Closed Radiology Diagnoses Screening for malignant neoplasm of respiratory organ Cigarette Smoker Procedures CT Lung Cancer Screening Lola Barksdale MD [address] [address] Reason Comments Follow-up LDCT chest Reason Comments [...] diabetes mellitus (HCC) Phyllis Mae MD [address] [place] [address] Susan Baptiste MD [address] [place] [phone] Reason Comments Trauma Stroke Alert Status Reason Specialty Diagnoses / Procedures Referre d By Contact Referred To Contact Closed Radiology Diagnoses Chest pain, unspecified type PVD (peripheral vascular disease) ([facility]) Procedures NM Myocardial Perfusion Multiple SPECT [place] MD [address] [address] Status Reason Specialty Diagnoses / Procedures Referre d By Contact Referred To Contact Closed Radiology Diagnoses Screening for malignant neoplasm of respiratory organ Cigarette Smoker Procedures CT Lung Cancer Screening Lola Barksdale MD [address] [place], [place] [phone] Reason Comments Trauma Status Reason Specialty Diagnoses / Procedures Referre d By Contact Referred To Contact Closed Radiology Diagnoses Nipple pain Procedures Mammography Diagnostic Bilateral Phyllis Mae MD [address] [place] [phone] Reason Comments TELEHEALTH PH. [phone] -6M O Shortness of Breath W/ EXERTION lightheaded upon standing Fatigue Reason Comments Follow-up seg, car Reason Comments Follow-up review abd/carotid Status Reason Specialty Diagnoses / Procedures Referred By Contact Referred To Contact Closed Vascular Surgery / Cardiology Diagnoses Chest pain, unspecified type Bilateral carotid artery stenosis [place] MD [address] [address] Cameron Munguia III, DO [address] [place] [address] Reason Comments Medication Refill Reason Comments proactive outreach Status Reason Specialty Diagnoses / Procedures Referre d By Contact Referred To Contact Closed Cardiology Diagnoses Prominent abdominal aortic pulse Procedures Ultrasound abdominal aorta duplex limited [place] MD [address] [address] Reason Comments Follow-up Reason Comments Abnormal Lab [...] Reason Comments Hospital Follow-up F/U HOSPITAL DISCHAR [facility] 02/27/23 - COPD EXACERBATION, LEFT RIB PAIN. [...] HE HAS BEEN LIVING WITH SON AND [id number] BUT ATTEMPTED ADMISSION TO [facility]. C/O EPISODES OF HYPOGLYCEMIA - DOESN'T TAKE [...] content) DATE CREATED AUTHOR 11/16/2018 [facility] DATE CREATED AUTHOR AUTHOR'S ORGANIZ ATION 11/23/2018 [facility] DATE CREATED AUTHOR AUTHOR'S ORGANIZ ATION 12/11/2018 [facility] DATE CREATED AUTHOR AUTHOR'S ORGANIZ ATION 07/05/2019 [facility] DATE CREATED AUTHOR AUTHOR'S ORGANIZ ATION 04/14/2020 [facility] DATE CREATED AUTHOR AUTHOR'S ORGANIZ ATION 05/21/2020 [facility] DATE CREATED AUTHOR AUTHOR'S ORGANIZ ATION 11/11/2022 [facility] DATE CREATED AUTHOR AUTHOR'S ORGANIZ ATION 12/30/2022 [facility] DATE CREATED AUTHOR AUTHOR'S ORGANIZ ATION 12/30/2022 [employer] DATE CREATED AUTHOR AUTHOR'S ORGANIZ ATION 08/07/2024 [facility] DATE CREATED AUTHOR AUTHOR'S ORGANIZ ATION 09/27/2024 [facility] DATE CREATED AUTHOR AUTHOR'S ORGANIZ ATION 11/15/2024 [facility] DATE CREATED AUTHOR AUTHOR'S ORGANIZ ATION 01/04/2025 [facility] DATE CREATED AUTHOR AUTHOR'S ORGANIZ ATION 03/11/2025 [facility] DATE CREATED AUTHOR AUTHOR'S ORGANIZ ATION 08/24/2025 [facility] Esmer Cheng RN - 05/27/2019 12:40 PM [...] RT for breathing treatment ED PROVIDER NOTE [facility] EMERGENCY DEPARTMENT NAME: Stevo Germain AGE: 69 y.o. : 1950 VISIT DATE: 05/27/2019 CSN: [id number] PCP: Phyllis Mae MD Chief Complaint Patient [...] morning. States that he was at Dr. Branham's office for a follow-up for his anemia [...] Peptic ulcer disease PVD (peripheral vascular disease) ([facility]) Rhabdomyolysis 2010 Stroke (HCC) 2010 R side [...] on file Occupational History Occupation: Disability Comment: [employer] Social Needs Financial resource strain: Not on [...] file Gets together: Not on file Attends mosque service: Not on file Active member of [...] size. 5. Multilevel degenerative changes of the ear-qq-vxows thoracic spine are redemonstrated. [facility] Workstation ID: [id number] Procedures MDM Number of [...] ED Disposition Condition Comment Discharge Stable Stevo Germain discharged to home/self care in stable condition. Follow-up Information 1. Phyllis Mae MD. Specialty: Internal Medicine [address] [place] [address] Contact information for after-discharge care Follow-up information [...] PA-C 05/27/19 1233 Xray at bedside Wendy PA at bedside to evaluate pt Pt c/o cough that started yesterday, states the cough is productive, clear and sometimes yellowish, pt states CP with deep breathing, pt 89% on room air, pt placed on 2 L O2 at this time documented in this encounter Associated Order(s): EKG 12-lead ED PROVIDER NOTE [facility] EMERGENCY DEPART[facility] NAME: Stevo Germain AGE: 69 y.o. 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 Follow-up Information 1. Phyllis Mae MD. Specialty: Internal Medicine Why: If symptoms worsen [address] [place] [address] Contact information for after-discharge care Follow-up information [...] dr mathis is on stroke network monitor [facility] ED Attending Note: NAME: Stevo Germain 70 y.o. CSN: [id number] PCP: Phyllis Mae MD History: Chief Complaint: [...] file Gets together: Not on file Attends mosque service: Not on file Active member of [...] and APTT. Procedure Abnormality Status --------- ------ PT/INR[[id number]] Normal Final result APTT[[id number]] Normal Final result Please view results for these tests on the individual orders. OBTAIN VENOUS BLOOD GASES AND PERFORM TYPE AND SCREEN CT Lumbar Spine Without Contrast Reconstructed Preliminary Result No acute fracture or traumatic malalignment. ST/jdw Workstation ID: [id number] CT Thoracic Spine Without [...] Result No acute fracture or traumatic malalignment. Mvwvgzrn-sd-mdyiig multilevel degenerative changes. ST/kls Workstation ID: [id number] CT Head Or Brain Without Contrast Preliminary Result 1. No intracranial hemorrhage or mass effect. 2. No depressed calvarial fracture. ST/cdr Workstation ID: [id number] XR Chest 1 View Preliminary Result 1. No acute cardiopulmonary process. 2. No acute displaced rib fractures. ST/ges Workstation ID: [id number] US ED Fast Scan (Results Pending) Indicates that patient unharmed by fall. to take him home. Clinical Impression: 1. Fall, initial encounter 2. Alcoholic intoxication with complication (HCC) Disposition: Patient is being discharged to home BRANDIE SCHERER MD [facility] Emergency Department (Please note that portions [...] at this time documented in this encounter [facility] ED Attending Note: NAME: Stevo Germain 70 y.o. CSN: [id number] PCP: Phyllis Mae MD History: Chief Complaint: [...] Stage III COPD (chronic obstructive pulmonary disease) ([facility]LY [facility]) Diabetes mellitus (HCC) TYPE 2 Essential tremor History of pneumonia Hyperlipidemia Hypertension Leg cramps Leg heaviness MGUS (monoclonal gammopathy of unknown significance) Peptic ulcer disease PVD (peripheral vascular disease) ([facility]) Rhabdomyolysis 2010 Stroke ([facility]) 2010 R side PMSx: Past Surgical History: [...] on file Occupational History Occupation: 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 blood-glucose meter [facility] Accu-chek Elli plus meter. Use as directed [...] 3. Closed extensive facial fractures, initial encounter ([facility]) 4. Closed fracture of multiple ribs of [...] Start: 06/16/20. Route: Oral BRANDIE SCHERER MD [facility] Emergency Department (Please note that portions of this note have been completed with a voice recognition software. Efforts were made to correct any errors, but occasionally words are mis-transcribed.) Ray Scherer MD 06/10/201851 [employer]AZ [employer]MA [employer], [facility]. documented in this encounter Amanda Gorman CNP - 06/10/2020 5:57 PM EDT H&P Notes (unrecognized sect ion and content) [place] TRAUMA TRAUMA EVALUATION / HISTORY AND PHYSICAL [...] cell attenuation consistent with hemorrhage. Transfer from [place] for Trauma tertiary evaluation. Loading CT head, [...] Pain, Quality, Radiation, Severity, Duration, Timing] Mr. Germain is a 70 year old male with significant medical history of CKD, COPD, DM type 2, HTN, Stroke with right sided deficit and surgical history of carotid endarterectomy that was transferred from [facility] after being evaluated s/p fall 2 days ago with noted facial fracture and rib fracture. Pt states 2 nights ago he got out of bed and tripped and fell onto his left face and side. Today he had a yearly PCP appointment and his PCP felt he needed to be evaluated for fracture. [place] completed a CT head and cervical spine [...] Stage III COPD (chronic obstructive pulmonary disease) ([facility]) Diabetes mellitus ([facility]) TYPE 2 Essential tremor History of pneumonia Hyperlipidemia Hypertension Leg cramps Leg heaviness MGUS (monoclonal gammopathy of unknown significance) Peptic ulcer disease PVD (peripheral vascular disease) ([facility]) Rhabdomyolysis 2010 Stroke ([facility]) 2010 R side Past Surgical History: Procedure [...] Pupils 3 mm equal and reactive bilaterally. Nasim Coma Scale EYES (4-spont, 3-to verb stim, [...] Mon04/27/21 at 2100 2025 (Given - Provider: aRdha Barksdale RN) 2050 (Given - Provider: oRcío Matthews, RN) budesonide-formoteroL (SYMBICORT) 160-4.5 mcg/actuation inhaler 2 puff 2 puff, Inhalation, 2 times daily (RT), First dose on Mon04/27/21 at 2200 0824 (Given - Provider: Judi Sorto, RN)2024 (Given - Provider: Radha Barksdale RN) 0900 (Given - Provider: Rachel Bridges, SEDA)1999 (Not Given - Provider: Rocío Matthews, RN [...] Sorto RN) 0928 (Given - Provider: Rachel Bridges, RN)1743 (Given - Provider: Rachel Bridges, RN) 0944 (Given - Provider: Richardson Lema, RN) clopidogreL (PLAVIX) tablet 75 mg 75 mg, Oral, Daily, First dose on Mon04/28/21 at 0900 0824 (Given - Provider: Judi Sorto, SEDA) 0928 (Given - Provider: Rachel Bridges, RN) 0944 (Given - Provider: Richardson Lema, RN) heparin (porcine) injection 5,000 Units 5,000 Units, Subcutaneous, Every 8 hours scheduled, First dose on Mon04/27/21 at 2200, Notify physician if patient refuses. 0600 (Given - Provider: Radha Barksdale RN)1437 (Given - Provider: Judi Sorto, RN)2200 (Given - Provider: Radha Barksdale RN) 0600 (Given - Provider: Radha Barksdale RN)1743 (Given - Provider: Rachel Bridges RN)210 (Given - Provider: Rocío Matthews, RN) 0533 (Given - Provider: Rocío Matthews RN)1400 (Due) insulin glargine (LANTUS) injection 16 Units 16 Units, Subcutaneous, Nightly, First dose on Mon04/27/21 at 2230, Do not mix with other insulins in a syringe. Do NOT hold basal insulin without notifying physician" 2027 (Given - Provider: Radha Barksdale RN) 2257 (Given - Provider: Rocío Matthews RN) insulin lispro (HumaLOG) injection 0-15 Units 0-15 Units, Subcutaneous, At bedtime, First dose on Mon04/27/21 at 2100, For Nightly Insulin Dose Coverage, use: CORRECTIVE (Only) for BG greater than 300, Nightly CORRECTIVE Dose Method: Specific Corrective Dose, Nightly Specific CORRECTIVE dose (units of insulin): 2, For Downtime Calculator, use: "Insulin SC NIGHTtime" 2027 (Not Given - Provider: Radha Barksdale RN - Reason: Order parameters not met [...] Sorto RN) 0928 (Given - Provider: Rachel Bridges RN)1130 (Given - Provider: Rachel Bridges RN)1743 (Given - Provider: Rachel Bridges RN) 0944 (Given - Provider: Richardson Lema, SEDA)1130 (Not Given - Provider: Richardson Lema RN - Reason: Order parameters not met) labetaloL (NORMODYNE) tablet 100 mg 100 mg, Oral, Every 12 hours scheduled, First dose on Mon05/01/21 at 1100 0824 (Given - Provider: Judi Sorto, SEDA)2025 (Given - Provider: Radha Barksdale RN) 09 (Given - Provider: Rachel Bridges RN)2050 (Given - Provider: Rocío Matthews RN) 0944 (Given - Provider: Richardson Lema, SEDA) NIFEdipine 24 hr tablet 30 mg 30 mg, Oral, Daily, First dose (after last modification) on Mon04/30/21 at 0915 0823 (Given - Provider: Judi Sorto RN) 09 (Given - Provider: Rachel Bridges RN) 0944 (Given - Provider: Richardson Lema, SEDA) pantoprazole (PROTONIX) EC tablet 40 mg 40 mg, Oral, Daily, First dose on Mon04/28/21 at 0900, DO NOT CRUSH OR CHEW. 0823 (Given - Provider: Judi Sorto RN) 09 (Given - Provider: Rachel Bridges RN) 0943 (Given - Provider: Richardson Lema, SEDA) PARoxetine (PAXIL) tablet 20 mg 20 mg, Oral, Daily, First dose on Mon04/28/21 at 0900, CATEGORY D HAZARDOUS DRUG use safe handling precautions. Use reference link to view PPE guidelines. Minimize crushing/splitting only to situations where clinically necessary. 0826 (Given - Provider: Judi Sorto RN) 09 (Given - Provider: Rachel Bridges RN) 0944 (Given - Provider: Richardson Lema, SEDA) sodium bicarbonate tablet 1,300 mg 1,300 mg, Oral, 2 times daily, First dose on Mon04/27/21 at 2100 0823 (Given - Provider: Judi Sorto RN)2025 (Given - Provider: Radha Barksdale RN) 0927 (Given - Provider: Rachel Bridges RN)2050 (Given - Provider: Rocío Matthews RN) 0943 (Given - Provider: Richardson Lema, SEDA) sodium chloride (PF) (NS) flush 5 mL(Linked Group 1) 5 mL, Intravenous, Every 8 hours scheduled, First dose on Mon04/27/21 at 1720, Saline lock 0600 (Given - Provider: Radha Barksdale RN)1400 (Not Given - Provider: Judi Sorto RN - Reason: Order parameters not met)2200 (Given - Provider: Radha Barksdale RN) 0600 (Not Given - Provider: Radha Barksdale RN - Reason: Other - Comment: pt okay to DC IV)1400 (Given - Provider: Rachel Bridges RN)2103 (Given - Provider: Rocío Matthews RN) 0533 (Given - Provider: Rocío Matthews RN)1400 (Not Given - Provider: Richardson Lema RN - Reason: Loss of IV access) tiotropium bromide (SPIRIVA RESPIMAT) 2.5 mcg/actuation inhaler 2 puff 2 puff, Inhalation, Daily (RT), First dose on Mon04/28/21 at 0900 0829 (Given - Provider: Judi Sorto RN) 0927 (Given - Provider: Rachel Bridges RN) 0944 (Given - Provider: Richardson Lema, SEDA) PRN Medication Order 05/09/2021 05/10/2021 05/11/2021 acetaminophen (TYLENOL) tablet 650 mg 650 mg, Oral, Every 6 hours PRN, headaches, Starting on Mon04/29/21 at 1747 0407 (Return to Cabinet - Provider: Radha Barksdale RN) 0213 (Given - Provider: Rayo Jara [...] 5 min PRN, chest pain, Starting on e 04/27/21 at 1718, Anginal pain, may repeat [id number] x3, then notify physician. DO NOT CRUSH OR CHEW. ondansetron (ZOFRAN) injection 4 mg(Linked Group 3) 4 mg, Intravenous, Every 6 hours PRN, nausea, vomiting, Starting on e 04/27/21 at 1718, Use oral route first, [...] Intravenous, As needed, line care, Starting on e 04/27/21 at 1718 sodium chloride 0.9% (NS)(Linked Group 1) 0-150 mL/hr, Intravenous, As needed, To flush line after IV infusions when no maintenance IV ordered or a compatibility issue. Infuse 20ml at the same rate as the secondary infusion, Starting on e 04/27/21 at 1718, Run as Primary IV. NOT intended for KVO. traMADoL (ULTRAM) 50 mg, acetaminophen (TYLENOL) 325 mg combo dose Oral, Every 6 hours PRN, pain, Starting on Madeline 04/29/21 at 2128 0417 (Given - Provider: Radha Barksdale, RN)1107 (Given - Provider: Judi Sorto, RN)1746 (Given - Provider: Judi Sorto, RN) 0213 (Given - Provider: Rayo Jara, RN)1038 (Given - Provider: Rachel Bridges, RN)2057 (Given - Provider: Rocío Matthews, RN) 0538 (Given - Provider: Rocío Matthews RN)1356 (Given - Provider: Darrin Thompson RN) Linked Groups Order Group 1: Saline lock IV (CANCELED) Routine, Continuous, Starting on Mon04/27/21 at 1719, Until Specified And sodium chloride (PF) (NS) flush 5 mLJump to med 5 mL, Intravenous, As needed, line care, Starting on e 04/27/21 at 1718 And sodium chloride (PF) (NS) [...] rate as the secondary infusion, Starting on e 04/27/21 at 1718
Run as Primary IV. NOT [...] PRN, nausea, vomiting, Starting on 04/27/21 at 1718
Use oral route first, if tolerated. Formulation requires tablet remain in sealed package until immediately prior to dose being administered.
Or ondansetron (ZOFRAN) injection 4 mgJump to med 4 mg, Intravenous, Every 6 hours PRN, nausea, vomiting, Starting on 04/27/21 at 1718
Use oral route first, if tolerated.
Care Teams (unrecognized sec tion and content) Scrum Project Manager Relationship Specialty Start Date End Date Phyllis Mae MD [address] [place] [address] PCP - General Internal Medicine 04/14/20 Phyllis Mae MD [address] [place] [address] Internal Medicine 04/14/20 Rochelle Cheung MD [address] [place] [address] Consulting Physician Nephrology 04/12/17 Cameron Munguia III, DO [address] [place] [address] Consulting Physician Vascular Surgery 05/24/17 [place] MD [address] [address] Consulting Physician Cardiovascular Disease 05/24/17 Ellen Claudio MD [address] [place] [address] Consulting Physician Physical Medicine/Rehabilitation 05/24/17 Scrum Project Manager Relationship Specialty Start Date End Date Phyllis Mae MD [address] [place] [address] PCP - General Internal Medicine 04/14/20 Phyllis Mae MD [address] [place] [address] Internal Medicine 04/14/20 Rochelle Cheung MD [address] [place] [address] Consulting Physician Nephrology 04/12/17 Cameron Munguia III, DO [address] [place] [address] Consulting Physician Vascular Surgery 05/24/17 [place] MD [address] [address] Consulting Physician Cardiovascular Disease 05/24/17 Ellen Claudio MD [address] [place] [address] Consulting Physician Physical Medicine/Rehabilitation 05/24/17 Scrum Project Manager Relationship Specialty Start Date End Date Phyllis Mae MD [address] [place] [address] PCP - General Internal Medicine 04/14/20 Phyllis Mae MD [address] [place] [address] Internal Medicine 04/14/20 Rochelle Cheung MD [address] [place] [address] Consulting Physician Nephrology 04/12/17 Cameron Munguia III, DO [address] [facility] [place] [address] Consulting Physician Vascular Surgery 05/24/17 [place] MD [address] [address] Consulting Physician Cardiovascular Disease 05/24/17 Ellen Claudio MD [address] [place] [address] Consulting Physician Physical Medicine/Rehabilitation 05/24/17 Scrum Project Manager Relationship Specialty Start Date End Date Phyllis Mae MD [address] [place] [address] PCP - General Internal Medicine 04/14/20 Phyllis Mae MD [address] [place] [address] Internal Medicine 04/14/20 Rochelle Cheung MD [address] [place] [address] Consulting Physician Nephrology 04/12/17 Cameron Munguia III, DO [address] [place] [address] Consulting Physician Vascular Surgery 05/24/17 [place] MD [address] [address] Consulting Physician Cardiovascular Disease 05/24/17 Ellen Claudio MD [address] [place] [address] Consulting Physician Physical Medicine/Rehabilitation 05/24/17 Scrum Project Manager Relationship Specialty Start Date End Date Phyllis Mae MD [address] [place] [address] PCP - General Internal Medicine 04/14/20 Phyllis Mae MD [address] [place] [address] Internal Medicine 04/14/20 Rochelle Cheung MD [address] [place] [address] Consulting Physician Nephrology 04/12/17 Cameron Munguia III, DO [address] [place] [address] Consulting Physician Vascular Surgery 05/24/17 [place] MD [address] [phone] Consulting Physician Cardiovascular Disease 05/24/17 Ellen Claudio MD [address] [place] [phone] Consulting Physician Physical Medicine/Rehabilitation 05/24/17 Scrum Project Manager Relationship Specialty Start Date End Date Phyllis Mae MD [address] [place] [address] PCP - General Internal Medicine 04/14/20 Phyllis Mae MD [address] [place] [address] Internal Medicine 04/14/20 Rochelle Cheung MD [address] [place] [address] Consulting Physician Nephrology 04/12/17 Cameron Munguia III, DO [address] [place] [address] Consulting Physician Vascular Surgery 05/24/17 [place] MD [address] [address] Consulting Physician Cardiovascular Disease 05/24/17 Ellen Claudio MD [address] [place] [address] Consulting Physician Physical Medicine/Rehabilitation 05/24/17 Scrum Project Manager Relationship Specialty Start Date End Date Phyllis Mae MD [address] [place] [address] PCP - General Internal Medicine 04/14/20 Phyllis Mae MD [address] [place] [address] Internal Medicine 04/14/20 Rochlele Cheung MD [address] [place] [address] Consulting Physician Nephrology 04/12/17 Cameron Munguia III, DO [address] [place] [address] Consulting Physician Vascular Surgery 05/24/17 [place] MD [address] [address] Consulting Physician Cardiovascular Disease 05/24/17 Ellen Claudio MD [address] [place] [address] Consulting Physician Physical Medicine/Rehabilitation 05/24/17 Scrum Project Manager Relationship Specialty Start Date End Date Phlylis Mae MD [address] [place] [address] PCP - General Internal Medicine 04/14/20 Phyllis Mae MD [address] [place] [address] Internal Medicine 04/14/20 Rochelle Cheung MD [address] [place] [address] Consulting Physician Nephrology 04/12/17 Cameron Munguia III, DO [address] [place] [address] Consulting Physician Vascular Surgery 05/24/17 [place] MD [address] [address] Consulting Physician Cardiovascular Disease 05/24/17 Ellen Claudio MD [address] [place] [address] Consulting Physician Physical Medicine/Rehabilitation 05/24/17 Scrum Project Manager Relationship Specialty Start Date End Date Phyllis Mae MD [address] [place] [address] PCP - General Internal Medicine 04/14/20 Phyllis Mae MD [address] [place] [address] Internal Medicine 04/14/20 Rochelle Cheung MD [address] [place] [address] Consulting Physician Nephrology 04/12/17 Cameron Munguia III, DO [address] [facility] [place] [address] Consulting Physician Vascular Surgery 05/24/17 [place] MD [address] [address] Consulting Physician Cardiovascular Disease 05/24/17 Ellen Claudio MD [address] [place] [address] Consulting Physician Physical Medicine/Rehabilitation 05/24/17 Scrum Project Manager Relationship Specialty Start Date End Date Phyllis Mae MD [address] [place] [address] PCP - General Internal Medicine 11/28/18 04/13/20 Phyllis Mae MD [address] [place] [address] PCP - General Internal Medicine 04/14/20 Phyllis Mae MD [address] [place] [address] Internal Medicine 04/14/20 Rochelle Cheung MD [address] [place] [address] Consulting Physician Nephrology 04/12/17 Cameron Munguia III, DO [address] [place] [address] Consulting Physician Vascular Surgery 05/24/17 [place] MD [address] [address] Consulting Physician Cardiovascular Disease 05/24/17 Ellen Claudio MD [address] [place] [address] Consulting Physician Physical Medicine/Rehabilitation 05/24/17 Scrum Project Manager Relationship Specialty Start Date End Date Phyllis Mae MD [address] [place] [address] PCP - General Internal Medicine 11/28/18 04/13/20 Phyllis Mae MD [address] [place] [address] PCP - General Internal Medicine 04/14/20 Phyllis Mae MD [address] [place] [address] Internal Medicine 04/14/20 Rochelle Cheung MD [address] [place] [address] Consulting Physician Nephrology 04/12/17 Cameron Munguia III, DO [address] [facility] [place], [place] [address] Consulting Physician Vascular Surgery 05/24/17 [place] MD [address] [phone] Consulting Physician Cardiovascular Disease 05/24/17 Ellen Claudio MD [address] [place] [phone] Consulting Physician Physical Medicine/Rehabilitation 05/24/17 Scrum Project Manager Relationship Specialty Start Date End Date Jose Dailey MD [address] [place] [address] PCP - General Internal Medicine 09/23/16 11/27/18 Phyllis Mae MD [address] [place] [address] PCP - General Internal Medicine 11/28/18 04/13/20 Phyllis Mae MD [address] [place] [address] PCP - General Internal Medicine 04/14/20 Phyllis Mae MD [address] [place] [address] Internal Medicine 04/14/20 Rochelle Cheung MD [address] [place] [address] Consulting Physician Nephrology 04/12/17 Cameron Munguia III, [address] [place], [place] [phone] Consulting Physician Vascular Surgery 05/24/17 [place] MD [address], [place] [phone] Consulting Physician Cardiovascular Disease 05/24/17 Ellen Claudio MD [address] [facility], [place] [phone] Consulting Physician Physical Medicine/Rehabilitation 05/24/17 Scrum Project Manager Relationship Specialty Start Date End Date Phyllis Mae MD [address] [place] [address] PCP - General 07/02/19 Phyllis Mae MD [address] [place] [address] PCP - [employer] Advantage PCP 10/30/21 Marley Velarde, inside sales agentInternet Manager 03/03/23 Scrum Project Manager Relationship Specialty Start Date End Date Phyllis Mae MD [address] [place] [address] PCP - General Internal Medicine 04/14/20 Phyllis Mae MD [address] [place] [address] Internal Medicine 04/14/20 Rochelle Cheung MD [address] [place] [address] Consulting Physician Nephrology 04/12/17 Cameron Munguia III, DO [address] [place] [address] Consulting Physician Vascular Surgery 05/24/17 [place] MD [address] [place] [address] Consulting Physician Cardiovascular Disease 05/24/17 Ellen Claudio MD [address] [place] [address] Consulting Physician Physical Medicine/Rehabilitation 05/24/17 Scrum Project Manager Relationship Specialty Start Date End Date Phyllis Mae MD [address] [place] [address] PCP - General Internal Medicine 04/14/20 Phyllis Mae MD [address] [place] [address] Internal Medicine 04/14/20 Rochelle Cheung MD [address] [place] [address] Consulting Physician Nephrology 04/12/17 Cameron Munguia III, DO [address] [facility] [place] [address] Consulting Physician Vascular Surgery 05/24/17 [place] MD [address] [place] [address] Consulting Physician Cardiovascular Disease 05/24/17 Ellen Claudio MD [address] [place] [address] Consulting Physician Physical Medicine/Rehabilitation 05/24/17 Scrum Project Manager Relationship Specialty Start Date End Date Phyllis Mae MD [address] [place] [address] PCP - General Internal Medicine 04/14/20 Phyllis Mae MD [address] [place] [address] Internal Medicine 04/14/20 Rochelle Cheung MD [address] [place] [address] Consulting Physician Nephrology 04/12/17 Cameron Munguia III, DO [facility] [place] [address] Consulting Physician Vascular Surgery 05/24/17 [place] MD [address] [address] Consulting Physician Cardiovascular Disease 05/24/17 Ellen Claudio MD [address] [place] [address] Consulting Physician Physical Medicine/Rehabilitation 05/24/17 Scrum Project Manager Relationship Specialty Start Date End Date Phyllis Mae MD [address] [place] [address] PCP - General 07/02/19 Phyllis Mae MD [address] [place] [address] PCP - [employer] Medicare Advantage PCP 10/30/21 Scrum Project Manager Relationship Specialty Start Date End Date Phyllis Mae MD [address] [place] [address] PCP - General Internal Medicine 04/14/20 Phyllis Mae MD [address] [place] [address] Internal Medicine 04/14/20 Rochelle Cheung MD [address] [place] [address] Consulting Physician Nephrology 04/12/17 Cameron Munguia III, DO [address] [place], [place] [address] [place] [address] Consulting Physician Vascular Surgery 05/24/17 [place] MD [address] [address] Consulting Physician Cardiovascular Disease 05/24/17 Ellen Claudio MD [address] [place] [address] Consulting Physician Physical Medicine/Rehabilitation 05/24/17 Scrum Project Manager Relationship Specialty Start Date End Date Phyllis Mae MD [address] [place] [address] PCP - General Internal Medicine 04/14/20 Phyllis Mae MD [address] [place] [address] Internal Medicine 04/14/20 Rochelle Cheung MD [address] [place] [address] Consulting Physician Nephrology 04/12/17 Cameron Munguia III, DO [address] [place] [address] Consulting Physician Vascular Surgery 05/24/17 [place] MD [address] [address] Consulting Physician Cardiovascular Disease 05/24/17 Ellen Claudio MD [address] [place] [address] [address], [place] [phone] Consulting Physician Physical Medicine/Rehabilitation 05/24/17 Scrum Project Manager Relationship Specialty Start Date End Date Phyllis Mae MD [address] [place] [address] PCP - General 07/02/19 Phyllis Mae MD [address] [place] [address] PCP - [employer] Medicare Advantage PCP 10/30/21 Scrum Project Manager Relationship Specialty Start Date End Date Phyllis Mae MD [address] [place] [address] PCP - General Internal Medicine 04/14/20 Phyllis Mae MD [address] [place] [address] Internal Medicine 04/14/20 Rochelle Cheung MD [address] [place] [address] Consulting Physician Nephrology 04/12/17 Cameron Munguia III, DO [address] [place] [address] Consulting Physician Vascular Surgery 05/24/17 [place] MD [address] [address] Consulting Physician Cardiovascular Disease 05/24/17 Ellen Claudio MD [address] [place] [address] [address], [place] [phone] Consulting Physician Physical Medicine/Rehabilitation 05/24/17 Scrum Project Manager Relationship Specialty Start Date End Date Phyllis Mae MD [address] [place] [address] PCP - General Internal Medicine 04/14/20 Phyllis Mae MD [address] [place] [address] Internal Medicine 04/14/20 Rochelle Cheung MD [address] [place] [place] [address] Consulting Physician Nephrology 04/12/17 Cameron Munguia III, DO [address] [place] [address] Consulting Physician Vascular Surgery 05/24/17 [place] MD [address] [address] Consulting Physician Cardiovascular Disease 05/24/17 Ellen Claudio MD [address] [place] [address] Consulting Physician Physical Medicine/Rehabilitation 05/24/17 Scrum Project Manager Relationship Specialty Start Date End Date Phyllis Mae MD [address] [place] [address] PCP - General Internal Medicine 04/14/20 Phyllis Mae MD [address] [place] [address] Internal Medicine 04/14/20 Rochelle Cheung MD [address] [place] [address] Consulting Physician Nephrology 04/12/17 Cameron Munguia III, DO [facility] [place] [address] Consulting Physician Vascular Surgery 05/24/17 [place] MD [address] [place] [address] Consulting Physician Cardiovascular Disease 05/24/17 Ellen Claudio MD [address] [place] [address] Consulting Physician Physical Medicine/Rehabilitation 05/24/17 Scrum Project Manager Relationship Specialty Start Date End Date Phyllis Mae MD [address] [place] [address] PCP - General Internal Medicine 04/14/20 Phyllis Mae MD [address] [place] [address] Internal Medicine 04/14/20 Rochelle Cheung MD [address] [place] [address] Consulting Physician Nephrology 04/12/17 Cameron Munguia III, DO [address] [place], [place] [address] [place] [address] Consulting Physician Vascular Surgery 05/24/17 [place] MD [address] [place] [address] [phone] Consulting Physician Cardiovascular Disease 05/24/17 Ellen Claudio MD [address] [place] [address] [phone] Consulting Physician Physical Medicine/Rehabilitation 05/24/17 Scrum Project Manager Relationship Specialty Start Date End Date Phyllis Mae MD [address] [facility] [place] [address] PCP - General 07/02/19 Phyllis Mae MD [address] [place] [address] PCP - [employer] Medicare Advantage PCP 10/30/21 Scrum Project Manager Relationship Specialty Start Date End Date Phyllis Mae MD [address] [place] [address] PCP - General 07/02/19 Phyllis Mae MD [address] [place] [address] PCP - [employer] Medicare Advantage PCP 10/30/21 Scrum Project Manager Relationship Specialty Start Date End Date Phyllis Mae MD [address] [place] [address] PCP - General Internal Medicine 04/14/20 Phyllis Mae MD [address] [place] [address] Internal Medicine 04/14/20 Rochelle Cheung MD [address] [place] [address] Consulting Physician Nephrology 04/12/17 Cameron Munguia III, DO [facility] [place] [address] Consulting Physician Vascular Surgery 05/24/17 [place] MD [address] [address] Consulting Physician Cardiovascular Disease 05/24/17 Ellen Claudio MD [address] [place] [address] Consulting Physician Physical Medicine/Rehabilitation 05/24/17 Scrum Project Manager Relationship Specialty Start Date End Date Phyllis Mae MD [address] [place] [address] PCP - General Internal Medicine 04/14/20 Phyllis Mae MD [address] [place] [address] Internal Medicine 04/14/20 Rochelle Cheung MD [address] [place] [address] Consulting Physician Nephrology 04/12/17 Cameron Munguia III, [address] [place] [address] Consulting Physician Vascular Surgery 05/24/17 [place] MD [address] [address] Consulting Physician Cardiovascular Disease 05/24/17 Ellen Claudio MD [address] [place], [place] [phone] Consulting Physician Physical Medicine/Rehabilitation 05/24/17 Scrum Project Manager Relationship Specialty Start Date End Date Phyllis Mae MD [address] [place] [address] PCP - General Internal Medicine 04/14/20 Phyllis Mae MD [address] [place] [address] Internal Medicine 04/14/20 Rochelle Cheung MD [address] [place] [address] Consulting Physician Nephrology 04/12/17 Cameron Munguia III, [address] [place] [address] Consulting Physician Vascular Surgery 05/24/17 [place] MD [address] [address] Consulting Physician Cardiovascular Disease 05/24/17 [place] [address] Consulting Physician Physical Medicine/Rehabilitation 05/24/17 Scrum Project Manager Relationship Specialty Start Date End Date Phyllis Mae MD [address] [place] [address] PCP - General Internal Medicine 04/14/20 Phyllis Mae MD [address] [place] [address] Internal Medicine 04/14/20 Rochelle Cheung MD [address] [place] [address] Consulting Physician Nephrology 04/12/17 Cameron Munguia III, DO [facility] [place] [address] Consulting Physician Vascular Surgery 05/24/17 [place] MD [address] [address] Consulting Physician Cardiovascular Disease 05/24/17 Ellen Claudio MD [address] [place] [address] Consulting Physician Physical Medicine/Rehabilitation 05/24/17 Scrum Project Manager Relationship Specialty Start Date End Date Phyllis Mae MD [address] [place] [address] PCP - General Internal Medicine 04/14/20 Phyllis Mae MD [address] [place] [address] Internal Medicine 04/14/20 Rochelle Cheung MD [address] [place] [address] Consulting Physician Nephrology 04/12/17 Cameron Munguia III, DO [address] [place], [place] [phone] Consulting Physician Vascular Surgery 05/24/17 [place] MD [address] [address] Consulting Physician Cardiovascular Disease 05/24/17 Ellen Claudio MD [address] [place] [address] [place] [address] Consulting Physician Physical Medicine/Rehabilitation 05/24/17 Scrum Project Manager Relationship Specialty Start Date End Date Phyllis Mae MD [address] [place] [address] PCP - General Internal Medicine 04/14/20 Phyllis Mae MD [address] [place] [address] Internal Medicine 04/14/20 Rochelle Cheung MD [address] [place] [address] Consulting Physician Nephrology 04/12/17 Cameron Munguia III, 335 [place] [address] Consulting Physician Vascular Surgery 05/24/17 [place] MD [address] [address] Consulting Physician Cardiovascular Disease 05/24/17 Ellen Claudio MD [address] [place] [address] Consulting Physician Physical Medicine/Rehabilitation 05/24/17 Scrum Project Manager Relationship Specialty Start Date End Date Phyllis Mae MD [address] [place] [address] PCP - General Internal Medicine 04/14/20 Phyllis Mae MD [address] [place] [address] Internal Medicine 04/14/20 Rochelle Cheung MD [address] [place] [address] Consulting Physician Nephrology 04/12/17 Cameron Munguia III, DO [address] [place] [address] Consulting Physician Vascular Surgery 05/24/17 [place] MD [address] [address] Consulting Physician Cardiovascular Disease 05/24/17 Ellen Claudio MD [address] [place] [address] Consulting Physician Physical Medicine/Rehabilitation 05/24/17 Scrum Project Manager Relationship Specialty Start Date End Date Phyllis Mae MD [address] [place] [address] PCP - General Internal Medicine 04/14/20 Phyllis Mae MD [address] [place] [address] Internal Medicine 04/14/20 Rochelle Cheung MD [address] [place] [address] Consulting Physician Nephrology 04/12/17 Cameron Munguia III, DO [address] [place], [place] [address] [place] [address] Consulting Physician Vascular Surgery 05/24/17 [place] MD [address] [address] Consulting Physician Cardiovascular Disease 05/24/17 Ellen Claudio MD [address] [place] [address] Consulting Physician Physical Medicine/Rehabilitation 05/24/17 Scrum Project Manager Relationship Specialty Start Date End Date Phyllis Mae MD [address] [place] [address] PCP - General Internal Medicine 04/14/20 Phyllis Mae MD [address] [place] [address] Internal Medicine 04/14/20 Rochelle Cheung MD [address] [place] [address] Consulting Physician Nephrology 04/12/17 Cameron Munguia III, DO [address] [place] [address] Consulting Physician Vascular Surgery 05/24/17 [place] MD [address] [address] Consulting Physician Cardiovascular Disease 05/24/17 Ellen Claudio MD [address] [place] [address] [place] [address] Consulting Physician Physical Medicine/Rehabilitation 05/24/17 Scrum Project Manager Relationship Specialty Start Date End Date Phyllis Mae MD [address] [place] [address] PCP - General Internal Medicine 04/14/20 Phyllis Mae MD [address] [place] [address] Internal Medicine 04/14/20 Rochelle Cheung MD [address] [place] [address] Consulting Physician Nephrology 04/12/17 Cameron Munguia III, DO [address] [place] [address] Consulting Physician Vascular Surgery 05/24/17 [place] MD [address] [address] Consulting Physician Cardiovascular Disease 05/24/17 Ellen Claudio MD [facility] [place] [address] Consulting Physician Physical Medicine/Rehabilitation 05/24/17 Scrum Project Manager Relationship Specialty Start Date End Date Phyllis Mae MD [address] [place] [address] PCP - General 07/02/19 Phyllis Mae MD [address] [place] [address] PCP - [place] [facility] Medicare Advantage PCP 10/30/21 Scrum Project Manager Relationship Specialty Start Date End Date Phyllis Mae MD [address] [place] [address] PCP - General Internal Medicine 04/14/20 Phyllis Mae MD [address] [place] [address] Internal Medicine 04/14/20 Rochelle Cheung MD [address] [place] [address] Consulting Physician Nephrology 04/12/17 Cameron Munguia III, DO [address] [place] [address] Consulting Physician Vascular Surgery 05/24/17 [place] MD [address] [address] Consulting Physician Cardiovascular Disease 05/24/17 Ellen Claudio MD [address] [place] [address] Consulting Physician Physical Medicine/Rehabilitation 05/24/17 Scrum Project Manager Relationship Specialty Start Date End Date Phyllis Mae MD [address] [place] [address] PCP - General 07/02/19 Phyllis Mae MD [address] [place] [address] PCP - [employer] Medicare Advantage PCP 10/30/21 Scrum Project Manager Relationship Specialty Start Date End Date Phyllis Mae MD [address] [place] [address] PCP - General Internal Medicine 04/14/20 Phyllis Mae MD [address] [place] [address] Internal Medicine 04/14/20 Rochelle Cheung MD [address] [place] [address] Consulting Physician Nephrology 04/12/17 Cameron Munguia III, DO [address] [place] [address] Consulting Physician Vascular Surgery 05/24/17 [place] MD [address] [address] Consulting Physician Cardiovascular Disease 05/24/17 Ellen Claudio MD [address] [place], [place] [phone] Consulting Physician Physical Medicine/Rehabilitation 05/24/17 Scrum Project Manager Relationship Specialty Start Date End Date Phyllis Mae MD [address] [place] [address] PCP - General Internal Medicine 04/14/20 Phyllis Mae MD [address] [place] [address] Internal Medicine 04/14/20 Rochelle Cheung MD [address] [place] [address] Consulting Physician Nephrology 04/12/17 Cameron Munguia III, DO [address] [place], [place] [address] [place] [address] Consulting Physician Vascular Surgery 05/24/17 [place] MD [address] [address] Consulting Physician Cardiovascular Disease 05/24/17 Ellen Claudio MD [address] [place] [address] Consulting Physician Physical Medicine/Rehabilitation 05/24/17 Scrum Project Manager Relationship Specialty Start Date End Date Phyllis Mae MD [address] [place] [address] PCP - General 07/02/19 Phyllis Mae MD [address] [place] [address] PCP - [employer] Medicare Advantage PCP 10/30/21 Scrum Project Manager Relationship Specialty Start Date End Date Phyllis Mae MD [address] [place] [address] PCP - General Internal Medicine 04/14/20 Phyllis Mae MD [address] [place] [address] Internal Medicine 04/14/20 Rochelle Cheung MD [address] [place] [address] Consulting Physician Nephrology 04/12/17 Cameron Munguia III, DO [address] [place] [address] Consulting Physician Vascular Surgery 05/24/17 [place] MD [address] [address] Consulting Physician Cardiovascular Disease 05/24/17 Ellen Claudio MD [address] [place] [address] Consulting Physician Physical Medicine/Rehabilitation 05/24/17 Team Status: [...] Status: Inactive Member Role Status Dates Dr. Phylils Mae MD Primary Care Provider Active Start: [...] April 17, 2025 End: April 17, 2025 Team Status: Active Member Role/Relationship Status Dates Dr. Phyllis Mae MD Primary care physician Active Team Status: Inactive Member Role/Relationship Status Dates Dr. Phyllis Mae MD Primary care physician Active Start: April 10, 2025 End: April 10, 2025 Dr. Joel Slaughter DO Attending physician Active Start: April 10 End: April 10, 2025 Dr. Joel Slaughter DO Emergency Department Physician Active Start: April 10, 2025 End: April 10, 2025 Team Status: Active Member Role/Relationship Status Dates Dr. Phyllis Mae MD Primary care physician Active Start: April 16, 2025 Manohar LOTT MD Attending physician Active Start: April 16, 2025 Manohar LOTT MD Referring Provider Active Start: April 16, 2025 Team Status: Inactive Member Role/Relationship Status Dates Dr. Phyllis Mae MD Primary care physician Active Start: April 17, 2025 End: April 17, 2025 Dr. Phyllis Mae MD Referring Provider Active Start: April 17, 2025 End: April 17, 2025 Deshaun Salcedo MD Attending physician Active S tart: April 17, 2025 End: April 17, 2025 Team Status: Inactive Member Role/Relationship Status Dates Dr. Phyllis Mae MD Primary care physician Active Start: April 22, 2025 End: April 22, 2025 Manohar LOTT MD Attending physician Active Start: April 22, 2025 End: April 22, 2025 Team Status: Active Member Role/Relationship Status Dates Dr. Phyllis Mae MD Primary care physician Active Start: May 28, 2025 Dr. Sharmila LOTT MD Attending physician Active Start: May 28, 2025 Team Status: Active Member Role/Relationship Status Dates Dr. Phyllis Mae MD Primary care physician Active Start: May 30, 2025 Dr. Sharmila LOTT MD Attending physician Active Start: May 30, 2025 Team Status: Active Member Role/Relationship Status Dates Dr. Phyllis Mae MD Primary care physician Active Start: June 11, 2025 Manohar LOTT MD Attending physician Active Start: June 11, 2025 <item> Privacy Markings (unrecogniz ed section [...] BE BASED ON THE PRIMARY CLINICAL RECORDS. [employer] provides no warranty or guarantee of the accuracy or completeness of information in this document.
[2025-08-26 08:35] LABS: Hematocrit 29.7 % (40-54); Hemoglobin 10.1 g/dL (13.0-16.5); Mean Corp Hgb Conc 34.0 g/dL (32-36); Mean Corpuscular Volume 94.9 fL (80-94); Mean Platelet Vol. 11.3 fl (6.2-12.0); Platelet Count 430 K/mm3 (150-450); RBC Distribution Width CV 13.6 % (11.6-14.6); RBC Distribution Width SD 47.3 fl (35.1-43.9); Red Blood Count 3.13 M/mm3 (4.6-6.2); White Blood Count 11.7 K/mm3 (4.4-11.0)
[2025-08-26 08:58] LABS: Anion Gap 11 (5-15); BUN 35 mg/dL (4-19); BUN/Creat Ratio 20.8 RATIO (10-20); Calcium,Total 9.3 mg/dL (7.6-11.0); Carbon Dioxide 22.7 mmol/L (21.0-32.0); Chloride 104 mmol/L (98-108); Glucose 217 mg/dL (70-99); Magnesium 1.7 mg/dL (1.5-2.2); Potassium 4.1 mmol/L (3.3-5.1)
== END ==
LOC: OLS.SW 05:00
PROVIDERS: PCP Internal Medicine; Visit Provider Internal Medicine
DX: Z79.899 Other long term (current) drug therapy (principal); S22.41XD Multiple fractures of ribs, right side, subsequent encounter for fracture with routine healing
CPT/HCPCS: 36415; 80048; 83735; 85027

== ENCOUNTER → 2025-08-28 | Outpatient (REF) | payer MEDICARE, MEDICAID, SELFPAY ==
--- OUTSIDE RECORDS SUMMARY | 2025-08-28 05:12 | XMS RPT_ITS | CCD ---
Author Organization [facility] Care Team Providers Care Machine Try Out Setter Name Role Phone Sulove, Saksham Unavailable Kamadana, Rochelle Unavailable Cameron Munguia Unavailable [place] Unavailable [phone] Claudio, Nancy-Chiew Unavailable PHYLLIS MAE Attending Unavailable [...] Unavailabl e Esdras, Guillermo Attending [facility]availabl e [facility] Primary Care Provider [phone] Kamadana, Rochelle Unavailable Cameron Munguia Unavailable [place] Unavailable ZARRABI, PHYLLIS Primary Care Unavailable BRET FUENTES [...] Munguia Unavailable [place] Unavailable Carmelita WILSON, [facility] Primary Care Provider Phyllis Mae MD Unavailable Jonatan WILSON, Rochelle Unavailable Felice PICKETT DO W. Don Unavailable [phone] [place] MD Unavailable González WILSON, Nancy-Chiew Unavailable Carmelita WILSON [facility] Primary Care Provider Phyllis Mae MD Unavailable Jonatan WILSON, Rochelle Unavailable Felice PICKETT DO, W. Don Unavailable [place] MD Unavailable González WILSON, Nancy-Chiew Unavailable Zarrabi, Phyllis Unavailable Unavailable Unavailable Felice PICKETT DO W. Don Unavailable [place] MD Unavailable Phyllis Mae MD Unavailable Unavailable Zarrabi, Phyllis Unavailable Unavailable Sulove, Saksham Unavailable Unavailable Carmelita WILSON, [facility] Primary Care Provider Phyllis Mae MD Unavailable Thao Cheung MDapna Unavailable [phone] Felice PICKETT DO, W. Don Unavailable [phone] [place] MD Unavailable Ellen Claudio MD Unavailable Unavailable Unavailable Juarez Maeanak Unavailable Christopher Galindo Unavailable Phyllis Mae MD Primary Care Provider Phyllis Mae MD Unavailable Rochelle Cheung MD Unavailable [phone] Felice PICKETT DO, W. Don Unavailable [phone] [place] MD Unavailable Ellen Claudio MD Unavailable Carmelita, [...] Mae MD Primary Care Provider Ashlie WILSON [facility] Primary Care Provider Phyllis Mae Primary Care [...] Unavailable Felice PICKETT, DO, WVito Don Unavailable [phone] [place] MD Unavailable [phone] ZARRABI, PHYLLIS Primary Care Unavailable [place] [...] MD Referring Provider ROCHELLE CHEUNG Attending Provider [phone] ROCHELLE CHEUNG Referring Provider Jenni WILSON, Dr. [...] Unavailable Dr. Joel Slaughter DO Emergency Provider [facility] DO, Dr. Maldonado Attending Provider Samy WILSON, Manohar Referring Provider Unavailable Carmelita WILSON, Dr. Corado Referring Provider Denisse WILSON, Deshaun Attending Provider Carmelita WILSON, Dr. Corado Primary Care Physician [facility], Dr. Maldonado Attending Physician [facility], Dr. Maldonado Emergency [facility] t Physician Samy WILSON, Manohar Attending Physician Unavailgatito Salcedo MD, Deshaun Attending Physician Jenni WILSON, Dr. Doll Attending Physician Unavail able Samy OREN, Manohar Attending Unavailable Zarrabi, Phyllis Primary Care Unavailable Zarrabi, Phyllis Primary Care Unavailable Joel Slaughter Attending Unavailabl Rayo Gimenez Attending Unavailable Zarrabi, Phyllis Primary Care Unavailable GILBERT, N1 Attending Unavailable GILBERT, N1 Referring Unavailable Zarrabi, Phyllis Primary Care Unavailable Zarrabi, Phyllis Primary Care Unavailable Deshaun Salcedo Attending Unavailable Zarrabi, Phyllis Referring Unavailable Zarrabi, Phyllis Primary Care Unavailable Zarrabi, Phyllis Attending Unavailable Zarrabi, Phyllis Referring Unavailable GILBERT, N1 Attending Unavailable GILBERT, N1 Referring Unavailable Zarrabi, Phyllis Primary Care Unavailable SamyManohar Attending Unavailable Samy, Manohar Referring Unavailable Zarrabi, Phyllis Primary Care Unavailable Gudla OLS, Sharmila Attending Unavailable Gudla OLS, Sharmila Referring Unavailable Zarrabi, Phyllis Primary Care Unavailable Zarrabi, Phyllis Primary Care Unavailable Samy OLS, Manohar Attending Unavailable Samy OLS, Manohar Referring Unavailable Gudla OLS, Sharmila Attending Unavailable Zarrabi, Phyllis Primary Care Unavailable Gudla OLS, Sharmila Attending Unavailable Gudla OLS, Sharmila Referring Unavailable Zarrabi, Phyllis Primary Care Unavailable Zarrabi, Phyllis Primary Care Unavailable Samy OREN, Manohar Attending Unavailable Samy OLS, Manohar Attending Unavailable Zarrabi, Phyllis Primary Care Unavailable Gudla OLS, Sharmila Attending Unavailable [facility] Unavailable Sharmila Dunbar Attending Unavailable [facility] Unavailable Allergies Allergy Classification Reported Allergen(s) Allergy Type Date of Onset Reaction(s) Facility Quinolones (antibiotic) (16 sources) levoFLOXacin; Translations: [Levaquin] Drug Allergy 1 GI Intolerance [facility] varenicline (16 sources) varenicline; Translations: [varenicline] Drug Allergy 8 Swelling [facility] (20 sources) varenicline; Translations: [Unknown] Drug Allergy 8 Swelling [facility] (20 sources) levoFLOXacin; Translations: [Levaquin] Drug Allergy Vomiting [facility] Work Phone: (20 sources) levoFLOXacin; Translations: [LEVOFLOXACIN] Drug Allergy 1 GI Intolerance, Other [facility] Comment on above: vomiting Medications Current [...] pain or fever . 0 04/29/2021 Discontinued [id number] 200 actuat albuter ol 0.09 mg/actuat metered [...] Source=Surescripts, Medication=ALBUTEROL SUL 2.5 MG/3 ML SOLN, OriginatingSource=[facility]/pharmacy #[id number], OriginatingProvider=LOLA BARKSDALE, Duration=30, Oxiupozd=339, Refills=11, Date Last Modified/Filled=14-May-2020 take 2 puff(s) by in halation every four hours as needed ALBUTEROL HFA 90 MCG INHALER ; 2 puff(s) inhaled every 4 hours, As Needed Quantity: 0 Refills: 11 Ordered: 10-Jun-2020 Anya Bustillos Generic Substitution Allowed Comments: Source=Surescripts, Medication=ALBUTEROL HFA 90 MCG INHALER, OriginatingSource=[facility]/pharmacy #[id number], OriginatingProvider=LOLA BARKSDALE, Duration=16, Quantity=6.7, Refills=11, Date Last Modified/Filled=15-Apr-2020 take [...] above: Source=Surescripts, Medication=ALBUTEROL HFA 90 MCG INHALER, OriginatingSource=[facility]/pharmacy #[id number], OriginatingProvider=LOLA BARKSDALE, Duration=16, Quantity=6.7, Refills=11, Date Last Modified/Filled=15-Apr-2020 Source=Surescripts, Medication=ALBUTEROL SUL 2.5 MG/3 ML SOLN, OriginatingSource=[facility]/pharmacy #[id number], OriginatingProvider=DIANNE BARKSDALETH, Duration=30, Goutqask=397, Refills=11, Date Last Modified/Filled=14-May-2020 albuterol 90 mcg/actuation [...] above: Source=Surescripts, Medication=AMLODIPINE BESYLATE 2.5 MG TAB, OriginatingSource=[facility]/pharmacy #6176, OriginatingProvider=[place], Duration=90, Quantity=90, Refills=11, Date Last [...] Misc (20 sources) Start: 09-09-2024 blood-glucose meter Mis Indications: Type 2 diabetes mellitus with stage 3b chronic kidney disease, with long-term current use of insulin (HCC) Use to check blood sugar as needed to calibrate CGM . 1 each 09/09/2024 Active Start: 12-27-2019 End: 04-06-2021 blood-glucose meter Misc Ind ications: IDDM (insulin dependent diabetes mellitus) Accu-chek Elli plus meter. Use as directed 4 times daily. . 1 each 0 12/27/2019 04/06/2021 Discontinued Start: 12-27-2019 blood-glucose meter Misc Indications: IDDM (insulin dependent diabetes mellitus) Accu-chek Elli plus meter. Use as directed 4 times daily. . 1 each 0 12/27/2019 Active Start: 12-27-2019 blood-glucose meter Misc Indications: IDDM (insulin dependent diabetes mellitus) (HCC) [...] Active blood-glucose meter,continuo us ([employer] [place]) Misc (2 sources) Start: 11-25-2024 blood-glucose meter,continuous ([employer] [place]) Misc Indications: Type 2 diabetes mellitus with [...] 11/25/2024 Active Blood-Glucose,Receive r,Cont ([employer] [place]) misc (2 sources) Start: 04-17-2025 Blood-Glucose,Rece iver,Cont (Freestyle Hung [employer] [place]) misc Active NMA .ROUTE .MEDSUPPLY April 17, 2025 12:00am As directed calcium carbonate 1250 mg / cholecalciferol 200 unt oral tablet (20 sources) Vitamin D Start: 04-28-2021 End: 12-05-2024 take 1 tablet by mouth twice daily calcium carbonate-vitamin D3 500 mg-5 mcg (200 unit) tablet Indications: Healthcare maintenance Take 1 tablet by mouth 2 times a day. 60 tablet 12/05/2024 Active cephalexin 500 mg oral capsule [...] by mouth once daily Comment on above: Source=Abiel, Medication=CLOPIDOGREL 75 MG TABLET, OriginatingSource=[facility]/pharmacy #[id number], OriginatingProvider=PHYLLIS MAE, Duration=90, Quantity=90, Refills=3, Date Last [...] Active docusate sodium 50 mg / sennosides, fci 8.6 mg oral tablet (6 sources) Start: [...] on above: Source=Surescripts, Medication=FAMOTIDINE 20 MG TABLET, OriginatingSource=[facility]/pharmacy #[id number], OriginatingProvider=PHYLLIS MAE, Duration=90, Mihuglwv=266, Refills=11, Date Last Modified/Filled=02-Apr-2020 fenofibrate 145 mg oral tablet (20 sources) Peroxisome Proliferator Receptor alpha Agonist Start: 3 End: take 1 tablet by mouth once daily [...] Comment on above: Source=Surescripts, Medication=WIXELA 500-50 INHUB, OriginatingSource=[facility]/pharmacy #6105, OriginatingProvider=LOLA BARKSDALE, Duration=90, Digdtcia=841, Refills=3, Date Last Modified/Filled=28-May-2020 FreeStyle Hung 3 [place] misc (1 source) Start: 5 FreeStyle Hung [employer] [place] misc 1 Device. 11/25/2024 Active 3 ml [...] day Quantity: 0 Refills: 0 Ordered: 04-Jan-2021 Hauetein, Eboni Generic Substitution Allowed inject 30 [IU] [...] Source=Surescripts, Medication=ISOSORBIDE MONONIT ER 30 MG TB, OriginatingSource=[facility]/pharmacy #6181, OriginatingProvider=ROCHELLE CHEUNG, Duration=90, Quantity=90, Refills=1, Date Last Modified/Filled=01-Apr-2020 Lantus Solostar 100 Unit/Ml (3 Ml) Subcutaneous Insulin Pen (4 sources) Star t: 08-31 16 LANTUS SOLOSTAR 100 unit/mL (3 mL) InPn INJECT 30 UNITS SUBCUTANEOUSLY TWICE A DAY 11 09/24/2016 Active loperamide hydrochloride 2 mg oral capsule (2 sources) Opioid Agonist Star t: 03-30 take 1 capsule by mouth twice daily as needed loratadine 10 mg oral tablet (20 sources) Star t: 03-30 25 take 1 tablet by mouth once daily [...] on above: Source=Surescripts, Medication=LOVASTATIN 10 MG TABLET, OriginatingSource=[facility]/pharmacy #[id number], OriginatingProvider=PHYLLIS MAE, Duration=90, Quantity=90, Refills=11, Date Last Modified/Filled=07-Nov-2019 magnesium oxide 400 mg oral tablet (16 sources) magnesium oxide 400 mg magnesium Tab Take by mouth 2 (two) times a day . 0 Active lgyjdfai-feqv-YP-sheldon cium-mins 9 mg iron-400 mcg Tab (20 sources) egnwjcfy-mfqf-PI -sheldon cium-mins 9 mg iron-400 mcg Tab Take 1 (one) tablet by mouth daily . Active jsgvahad-lmdi-EY -calcium-mins 9 mg iron-400 mcg Tab Take 1 (one) tablet by mouth daily . 0 Active xhufoipx-srqp-SG -calcium-mins 9 mg iron-400 mcg Tab Take 1 tablet by mouth daily . 0 Active multivitamin with minerals (zhgxmgxyldlx-fpow-wxtvb acid) tablet (9 sources) Start: 12-05-2024 take 1 tablet by mouth once daily multivitamin with minerals (qvvfcndmiaio-ttwl-ohuab acid) tablet Indications: Healthcare maintenance Take 1 tablet by mouth once daily. 30 tablet 11 12/05/2024 Active End: 12-05-2024 take 1 tablet by mouth once daily multivitamin with minerals (zjykvqxhmeqr-qkur-epmof acid) tablet Take 1 tablet by mouth once daily. 12/05/2024 Discontinued (Reorder) take 1 tablet by silviano th once daily multivitamin with minerals (akuujrmxrruj-vodq-bsuhz acid) tablet Take 1 tablet by mouth once daily. Active take 1 tablet by silviano th once daily multivitamin with minerals (mtxerbeource-wjdq-qevvg acid) tablet Take 1 tablet by mouth once daily. 0 Active Multivitamin With Minerals Tablet (12 sources) take 1 tablet by mouth once daily multivitamin with minerals tablet Take 1 tablet by mouth daily. Active Inyqlpbgstlu-Arv-Qypu-Fa-V it K ([facility]) 18 mg iron-400 mcg-25 mcg tablet (2 sources) Start: 04-17-2025 take 1 tablet by mouth once daily Start: 04-17-2025 take 1 tablet by silviano th once daily Uuqcsugduobk-Cev-Vnot-Fa-Vit K ([facility]) 18 mg iron-400 mcg-25 mcg [...] above: Source=Surescripts, Medication=nitroglycerin 0.4 mg sublingual tablet, OriginatingSource=[facility], OriginatingProvider=, , Duration=7, Quantity=25, Refills=5, Date Last [...] Source=Surescripts, Medication=PAROXETIN E HCL 20 MG TABLET, OriginatingSource=[facility]/pharmacy #[id number], OriginatingProvider=PHYLLIS MAE, Duration=90, Quantity=90, Refills=4, Date [...] Message to Pharmacy)) take 1 capsule by [facility] twice daily as needed for pain [...] Start: 08-13-2022 take 2 tablets by mo [facility] once daily primidone (MYSOLINE) 50 MG [...] on above: Source=Surescripts, Medication=PRIMIDONE 50 MG TABLET, OriginatingSource=[facility]/pharmacy #6175, OriginatingProvider=PHYLLIS MAE, Duration=30, Quantity=30, Refills=11, Date [...] Active Start: 09-09-2022 take 1 capsule by [facility] every twenty-four hours Propranolol HCl ER [...] above: Source=Surescripts, Medication=PROPRANOLOL ER 80 MG CAPSULE, OriginatingSource=[facility]/pharmacy #6175, OriginatingProvider=[place], Duration=90, Quantity=90, Refills=3, Date Last [...] 10-Jun-2020 Anya Bustillos Generic Substitution Allowed Comments: Source=Abiel, Medication=SPIRONOLACTONE 25 MG TABLET, OriginatingSource=[facility]/pharmacy #6175, OriginatingProvider=KAMADANA, ROCHELLE, Duration=90, Quantity=90, Refills=1, Date Last Modified/Filled=07-Apr-2020 Comment on above: Source=Abiel, Medication=SPIRONOLACTONE 25 MG TABLET, OriginatingSource=[facility]/pharmacy #[id number], OriginatingProvider=KAMADANA, ROCHELLE, Duration=90, Quantity=90, Refills=1, Date [...] Start: 12-20-2023 take 1 capsule by mo [facility] once daily tamsulosin (Flomax) 0.4 mg 24 [...] 05/07/2021 06/06/2021 Active take 1 capsule by mo [facility] once daily tamsulosin (FLOMAX) 0.4 mg capsule [...] Chronic obstructive pulmonary disease, unspecified COPD type ([facility]) Place 1 capsule (18 mcg) into inhaler and inhale once daily. AT THE SAME TIME EVERY DAY VIA HANDIHALER 90 capsule 3 08/22/2023 Active Start: 09-05-2017 SPIRIVA WITH H ANDIHALER 18 mcg inhalation capsule Start: 09-05-2017 SPIRIVA WITH H ANDIHALER 18 mcg inhalation capsule Comment on above: Source=iJoule, Medication=SPIRIVA 18 MCG CP-HANDIHALER, OriginatingSource=[facility]/pharmacy #[id number], OriginatingProvider=LOLA BARKSDALE, Duration=90, Quantity=90, Refills=3, Date Last Modified/Filled=05-Apr-2020 traMADol [...] Closed fracture of right hip, initial encounter ([facility]) Take 1 (one) tablet (50 mg total) [...] Inhale 2 (two) times a day Ozzy. Active albuterol 0.833 mg/ml / ipratropium bromide [...] 0 02/13/2020 Active blood-glucose meter,continuous ([employer]) Misc (1 source) Start: 09-09-2024 End: 09-09-2024 blood-glucose meter,continuous ([employer]) Misc Indications: Type 2 diabetes mellitus with [...] 16-Apr-2020 Active take 2 tablets by mo [facility] three times daily as needed busPIRone (BUSPAR) 5 MG tablet Take 10 m g by mouth 3 (three) times a day as needed . 0 Active take 1 tablet by mouth three pratibha es daily busPIRone (BUSPAR) 5 MG tablet Take 5 mg by mouth 3 (three) times a day . 0 Active Comment on above: Source=Surescripts, Medication=BUSPIRONE HCL 10 MG TABLET, OriginatingSource=[facility]/pharmacy #[id number], OriginatingProvider=PHYLLIS MAE, Duration=30, Quantity=90, Refills=5, Date Last [...] complication, with long-term current use of insulin ([facility]) To check BS QID 1 each 0 [...] above: Source=Surescripts, Medication=FOLIC ACID 1 MG TABLET, OriginatingSource=[facility]/pharmacy #3600, OriginatingProvider=LANCE MODI, Duration=90, Quantity=90, Refills=11, Date Last [...] scale Quantity: 0 Refills: 0 Ordered: 04-Jan-2021 Haauroranstein, Eboni Generic Substitution Allowed labetalol hydrochloride 100 [...] above: Source=Surescripts, Medication=LISINOPRI L 40 MG TABLET, OriginatingSource=[facility]/pharmacy #6125, OriginatingProvider=PHYLLIS MAE, Duration=90, Quantity=90, Refills=11, Date Last [...] 1 tablet daily Quantity: 30 Refills: 11 hPyllis Mae MD Start : 18-Dec-2019 Active magnesium [...] above: Source=Surescripts, Medication=METFORMIN HCL 500 MG TABLET, OriginatingSource=[facility]/pharmacy #9776, OriginatingProvider=PHYLLIS MAE, Duration=90, Vjvafnuk=316, Refills=11, Date Last Modified/Filled=29-Apr-2020 methylPREDNISolone 4 MG [...] above: Source=Surescripts, Medication=OMEPRAZOLE DR 20 MG CAPSULE, OriginatingSource=[facility]/pharmacy #[id number], OriginatingProvider=PHYLLIS MAE, Duration=90, Quantity=90, Refills=5, Date Last [...] ondansetron (ZOFRAN-ODT) disintegrating tablet 4 mg [place] (4 sources) [place] USE BID WITH LANTUS Refills: 0 Active [place] USE BID WITH LANTUS Refills: 0 DO Active [place] (1 source) [place] USE BID WITH LANTUS Refills: 0 DO [...] once Quantity: 1 Refills: 0 Ordered: 28-Dec-2020 Ly WILSON Lance Start : 28-Dec-2020 End : 01-Jun-2021 Complete [...] (Stop Taking at Discharge) sodium zirconium cyclosilicate 94151 mg powder for oral suspension (1 source) [...] (20 sources) Acute renal failure syndrome; Translations: [Nmvbf-vd-dgqmfcb renal failure] Onset: 04-06-2021 Resolved: 04-29-2021 04-06-2021 [...] 07-25-2024 07-25-2024 Episodic Other aftercare (8 sources) [facility] (current) use of insulin; 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: [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 [place], [place], [id number] (534) Calcium [Mass/Vol] 9.3 mg/dL Normal 7.6-11.0 [facility] Comment on above: Order Comment: 212.1 Performed By: #### L [id number], L506.0250, L502.0250, L501.5200, L3300.9910, L500.4050, L7400.3000, L503.0105, L503.6150, L503.6550, L503.6075, L100.0100, L506.0400 #### [facility] [address] [place], [address] Chloride [Moles/Vol] 104 mmol/L Normal 98-108 [facility] Comment on above: Order Comment: 212.1 Performed By: #### L [id number], L506.0250, L502.0250, L501.5200, L3300.9910, L500.4050, L7400.3000, L503.0105, L503.6150, L503.6550, L503.6075, L100.0100, L506.0400 #### [facility] [address] [place], [address] (039) CO2 [Moles/Vol] 22.7 mmol/L Normal 21.0-32.0 [facility] Comment on above: Order Comment: 212.1 Performed By: #### L [id number], L506.0250, L502.0250, L501.5200, L3300.9910, L500.4050, L7400.3000, L503.0105, L503.6150, L503.6550, L503.6075, L100.0100, L506.0400 #### [facility] [address] [place], [address] (139) Creatinine [Mass/Vol] 1.67 mg/dL High 0.70-1.20 [facility] Comment on above: Order Comment: 212.1 Performed By: #### L [id number], L506.0250, L502.0250, L501.5200, L3300.9910, L500.4050, L7400.3000, L503.0105, L503.6150, L503.6550, L503.6075, L100.0100, L506.0400 #### [facility] [address] [place], [address] GAP 11 Normal 5-15 [facility] Comment on above: Order Comment: 212.1 Performed By: #### L [id number], L506.0250, L502.0250, L501.5200, L3300.9910, L500.4050, L7400.3000, L503.0105, L503.6150, L503.6550, L503.6075, L100.0100, L506.0400 #### [facility] [address] [place], [address] GFR/1.73 sq M.predicted among non-blacks MDRD (S/P/Bld) [Vol rate/Area] 42 mL/min/{1.73_m2} Low >60 [facility] Comment on above: Order Comment: .1 Result Comment: mL/m in/1.73m2 CKD-EPI Creatinine Equation (2020) Performed By: #### L [id number], L506.0250, L502.0250, L501.5200, L3300.9910, L500.4050, L7400.3000, L503.0105, L503.6150, L503.6550, L503.6075, L100.0100, L506.0400 #### [facility] [address] [place], [address] Glucose [Mass/Vol] 217 mg/dL High 70-99 [facility] Comment on above: Order Comment: .1 Performed By: #### L [id number], L506.0250, L502.0250, L501.5200, L3300.9910, L500.4050, L7400.3000, L503.0105, L503.6150, L503.6550, L503.6075, L100.0100, L506.0400 #### [facility] [address] [place], [place], [phone] (182 Potassium [Moles/Vol] 4.1 mmol/L Normal 3.3-5.1 [facility] Comment on above: Order Comment: .1 Performed By: #### L [id number], L506.0250, L502.0250, L501.5200, L3300.9910, L500.4050, L7400.3000, L503.0105, L503.6150, L503.6550, L503.6075, L100.0100, L506.0400 #### [facility] [address] [place], [address] Sodium [Moles/Vol] 138 mmol/L Normal 133-145 [facility] Comment on above: Order Comment: .1 Performed By: #### L 501.9520, L506.0250, L502.0250, L501.5200, L3300.9910, L500.4050, L7400.3000, L503.0105, L503.6150, L503.6550, L503.6075, L100.0100, L506.0400 #### [facility] [address] [place], [place], [phone] Urea nitrogen [Mass/Vol] 35 mg/dL High 4-19 [facility] Comment on above: Order Comment: 212.1 Performed By: #### L 501.9520, L506.0250, L502.0250, L501.5200, L3300.9910, L500.4050, L7400.3000, L503.0105, L503.6150, L503.6550, L503.6075, L100.0100, L506.0400 #### [facility] [address] [place], [place], [phone] CBC-Complete Blood Cnt No Di ffon 08-26-2025 Erythrocyte distribution width (RBC) [Ratio] 13.6 % Normal 11.6-14.6 [facility] Comment on above: Order Comment: 212.1 Performed By: #### L 501.9520, L506.0250, L502.0250, L501.5200, L3300.9910, L500.4050, L7400.3000, L503.0105, L503.6150, L503.6550, L503.6075, L100.0100, L506.0400 #### [facility] [address] [place], [address] Hematocrit (Bld) [Volume fraction] 29.7 % Low 40-54 [facility] Comment on above: Order Comment: 212.1 Performed By: #### L 501.9520, L506.0250, L502.0250, L501.5200, L3300.9910, L500.4050, L7400.3000, L503.0105, L503.6150, L503.6550, L503.6075, L100.0100, L506.0400 #### [facility] [address] [place], [place], [id number] Hemoglobin (Bld) [Mass/Vol] 10.1 g/dL Low 13.0-16.5 [facility] Comment on above: Order Comment: 212.1 Performed By: #### L 501.9520, L506.0250, L502.0250, L501.5200, L3300.9910, L500.4050, L7400.3000, L503.0105, L503.6150, L503.6550, L503.6075, L100.0100, L506.0400 #### [facility] [address] [place], [place], [id number] MCH (RBC) [Entitic mass] 32.3 pg High 27.0-32.0 [facility] Comment on above: Order Comment: 212.1 Performed By: #### L 501.9520, L506.0250, L502.0250, L501.5200, L3300.9910, L500.4050, L7400.3000, L503.0105, L503.6150, L503.6550, L503.6075, L100.0100, L506.0400 #### [facility] [address] [place], [place], [id number] (307) MCHC (RBC) [Mass/Vol] 34.0 g/dL Normal 32-36 [facility] Comment on above: Order Comment: 212.1 Performed By: #### L 501.9520, L506.0250, L502.0250, L501.5200, L3300.9910, L500.4050, L7400.3000, L503.0105, L503.6150, L503.6550, L503.6075, L100.0100, L506.0400 #### [facility] [address] [place], [address] MCV (RBC) [Entitic vol] 94.9 fL High 80-94 [facility] Comment on above: Order Comment: 212.1 Performed By: #### L 501.9520, L506.0250, L502.0250, L501.5200, L3300.9910, L500.4050, L7400.3000, L503.0105, L503.6150, L503.6550, L503.6075, L100.0100, L506.0400 #### [facility] [address] [place], [address] Platelet mean volume (Bld) [Entitic vol] 11.3 fL Normal 6.2-12.0 [facility] Comment on above: Order Comment: 212.1 Performed By: #### L 501.9520, L506.0250, L502.0250, L501.5200, L3300.9910, L500.4050, L7400.3000, L503.0105, L503.6150, L503.6550, L503.6075, L100.0100, L506.0400 #### [facility] [address] [place], [address] Platelets (Bld) [#/Vol] 430 10*3/uL Normal 150-450 [facility] Comment on above: Order Comment: 212.1 Performed By: #### L 501.9520, L506.0250, L502.0250, L501.5200, L3300.9910, L500.4050, L7400.3000, L503.0105, L503.6150, L503.6550, L503.6075, L100.0100, L506.0400 #### [facility] [address] [facility] [place], [address] RBC (Bld) [#/Vol] 3.13 10*6/uL Low 4.6-6.2 [facility] Comment on above: Order Comment: 212.1 Performed By: #### L 501.9520, L506.0250, L502.0250, L501.5200, L3300.9910, L500.4050, L7400.3000, L503.0105, L503.6150, L503.6550, L503.6075, L100.0100, L506.0400 #### [facility] [address] [place], [address] RDW SD 47.3 fl High 35.1-43.9 [facility] Comment on above: Order Comment: 212.1 Performed By: #### L 501.9520, L506.0250, L502.0250, L501.5200, L3300.9910, L500.4050, L7400.3000, L503.0105, L503.6150, L503.6550, L503.6075, L100.0100, L506.0400 #### [facility] [address] [place], [place], [phone] (415) WBC (Bld) [#/Vol] 11.7 10*3/uL High 4.4-11.0 [facility] Comment on above: Order Comment: 212.1 Performed By: #### L 501.9520, L506.0250, L502.0250, L501.5200, L3300.9910, L500.4050, L7400.3000, L503.0105, L503.6150, L503.6550, L503.6075, L100.0100, L506.0400 #### [facility] [address] [place], [place], [id number] Magnesiumon 08-26-2025 Magnesium [Mass/Vol] 1.7 mg/dL Normal 1.5-2.2 [facility] Comment on above: Order Comment: 212.1 Performed By: #### L 501.9520, L506.0250, L502.0250, L501.5200, L3300.9910, L500.4050, L7400.3000, L503.0105, L503.6150, L503.6550, L503.6075, L100.0100, L506.0400 #### [facility] [address] [place], [address] Chest without Contraston Chest without Contrast [facility] Services [address] [place] [address] Chest without Contrast MR#: [id number] Acct: [id number] Name: STEVO GERMAIN Rep #: [id number] : 1950 M 75 From: Gianluca Hale MD PCP: PHYLLIS MAE Status: REG ER Study: Chest without Contrast Date of Exam: 08/22/25 Exam# [id number] Ordering Dr: Rayo Fitch DO PROCEDURE: CHEST [...] pneumonia. Perinephric fat stranding. Cholelithiasis. Reading Location: [facility] CC: Dr. Rayo Fitch DO; PHYLLIS MAE Certified Alcohol Counselor: Signed Normal [facility] Emergency Department Summary on 08-22-2025 Emergency Department Summary [facility] Medical Records Department [address] [place] [address] Emergency Department Summary 08/22/25 MR#: [id number] Acct: [id number] Name: STEVO GERMAIN Rep #: [id number] : 1950 75 From: Rayo Fitch DO [...] falling forward and injuring his chest. Per long-term he had rib x-rays that were negative [...] his right chest. He notes generalized soreness. 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 Normal [facility] CBC-Complete Blood Cnt No Di ffon 08-06-2025 Erythrocyte distribution width (RBC) [Ratio] 14.3 % Normal 11.6-14.6 [facility] Comment on above: Performed By: #### L 501.9520, L506.0250, L502.0250, L501.5200, L3300.9910, L500.4050, L7400.3000, L503.0105, L503.6150, L503.6550, L503.6075, L100.0100, L506.0400 #### [facility] [address] [place], [address] Hematocrit (Bld) [Volume fraction] 34.6 % Low 40-54 [facility] Comment on above: Performed By: #### L 501.9520, L506.0250, L502.0250, L501.5200, L3300.9910, L500.4050, L7400.3000, L503.0105, L503.6150, L503.6550, L503.6075, L100.0100, L506.0400 #### [facility] [address] [place], [address] Hemoglobin (Bld) [Mass/Vol] 11.5 g/dL Low 13.0-16.5 [facility] Comment on above: Performed By: #### L 501.9520, L506.0250, L502.0250, L501.5200, L3300.9910, L500.4050, L7400.3000, L503.0105, L503.6150, L503.6550, L503.6075, L100.0100, L506.0400 #### [facility] [address] [place], [address] MCH (RBC) [Entitic mass] 32.1 pg High 27.0-32.0 [facility] Comment on above: Performed By: #### L 501.9520, L506.0250, L502.0250, L501.5200, L3300.9910, L500.4050, L7400.3000, L503.0105, L503.6150, L503.6550, L503.6075, L100.0100, L506.0400 #### [facility] [address] [place], [address] MCHC (RBC) [Mass/Vol] 33.2 g/dL Normal 32-36 [facility] Comment on above: Performed By: #### L 501.9520, L506.0250, L502.0250, L501.5200, L3300.9910, L500.4050, L7400.3000, L503.0105, L503.6150, L503.6550, L503.6075, L100.0100, L506.0400 #### [facility] [address] [place], [address] MCV (RBC) [Entitic vol] 96.6 fL High 80-94 [facility] Comment on above: Performed By: #### L 501.9520, L506.0250, L502.0250, L501.5200, L3300.9910, L500.4050, L7400.3000, L503.0105, L503.6150, L503.6550, L503.6075, L100.0100, L506.0400 #### [facility] [address] [place], [address] Platelet mean volume (Bld) [Entitic vol] 10.8 fL Normal 6.2-12.0 [facility] Comment on above: Performed By: #### L 501.9520, L506.0250, L502.0250, L501.5200, L3300.9910, L500.4050, L7400.3000, L503.0105, L503.6150, L503.6550, L503.6075, L100.0100, L506.0400 #### [facility] [address] [place], [address] Platelets (Bld) [#/Vol] 360 10*3/uL Normal 150-450 [facility] Comment on above: Performed By: #### L 501.9520, L506.0250, L502.0250, L501.5200, L3300.9910, L500.4050, L7400.3000, L503.0105, L503.6150, L503.6550, L503.6075, L100.0100, L506.0400 #### [facility] [address] [place], [address] RBC (Bld) [#/Vol] 3.58 10*6/uL Low 4.6-6.2 [facility] Comment on above: Performed By: #### L 501.9520, L506.0250, L502.0250, L501.5200, L3300.9910, L500.4050, L7400.3000, L503.0105, L503.6150, L503.6550, L503.6075, L100.0100, L506.0400 #### [facility] [address] [place], [place], [phone] RDW SD 51.2 fl High 35.1-43.9 [facility] Comment on above: Performed By: #### L 501.9520, L506.0250, L502.0250, L501.5200, L3300.9910, L500.4050, L7400.3000, L503.0105, L503.6150, L503.6550, L503.6075, L100.0100, L506.0400 #### [facility] [address] [facility] [address] [place], [place], [phone] (980) WBC (Bld) [#/Vol] 9.2 10*3/uL Normal 4.4-11.0 [facility] Comment on above: Performed By: #### L 501.9520, L506.0250, L502.0250, L501.5200, L3300.9910, L500.4050, L7400.3000, L503.0105, L503.6150, L503.6550, L503.6075, L100.0100, L506.0400 #### [facility] [address] [place], [place], [phone] Renal Profileon 08-06-2025 Albumin [Mass/Vol] 3.8 g/dL Normal 3.4-4.8 [facility] Comment on above: Performed By: #### L 501.9520, L506.0250, L502.0250, L501.5200, L3300.9910, L500.4050, L7400.3000, L503.0105, L503.6150, L503.6550, L503.6075, L100.0100, L506.0400 #### [facility] [address] [place], [place], [phone] (128) BUN/CRE 12.9 RATIO Normal 10-20 [facility] Comment on above: Performed By: #### L 501.9520, L506.0250, L502.0250, L501.5200, L3300.9910, L500.4050, L7400.3000, L503.0105, L503.6150, L503.6550, L503.6075, L100.0100, L506.0400 #### [facility] [address] [place], [address] Calcium [Mass/Vol] 9.5 mg/dL Normal 7.6-11.0 [facility] Comment on above: Performed By: #### L 501.9520, L506.0250, L502.0250, L501.5200, L3300.9910, L500.4050, L7400.3000, L503.0105, L503.6150, L503.6550, L503.6075, L100.0100, L506.0400 #### [facility] [address] [place], [address] Chloride [Moles/Vol] 105 mmol/L Normal 98-108 [facility] Comment on above: Performed By: #### L 501.9520, L506.0250, L502.0250, L501.5200, L3300.9910, L500.4050, L7400.3000, L503.0105, L503.6150, L503.6550, L503.6075, L100.0100, L506.0400 #### [facility] [address] [place], [address] CO2 [Moles/Vol] 23.2 mmol/L Normal 21.0-32.0 [facility] Comment on above: Performed By: #### L 501.9520, L506.0250, L502.0250, L501.5200, L3300.9910, L500.4050, L7400.3000, L503.0105, L503.6150, L503.6550, L503.6075, L100.0100, L506.0400 #### [facility] [address] [facility] [address] [place], [place], [id number] Creatinine [Mass/Vol] 1.84 mg/dL High 0.70-1.20 [facility] Comment on above: Performed By: #### L 501.9520, L506.0250, L502.0250, L501.5200, L3300.9910, L500.4050, L7400.3000, L503.0105, L503.6150, L503.6550, L503.6075, L100.0100, L506.0400 #### [facility] [address] [facility] [place], [address] GAP 11 Normal 5-15 [facility] Comment on above: Performed By: #### L 501.9520, L506.0250, L502.0250, L501.5200, L3300.9910, L500.4050, L7400.3000, L503.0105, L503.6150, L503.6550, L503.6075, L100.0100, L506.0400 #### [facility] [address] [facility] [place], [address] GFR/1.73 sq M.predicted among non-blacks MDRD (S/P/Bld) [Vol rate/Area] 38 mL/min/{1.73_m2} Low >60 [facility] Comment on above: Result Comment: mL/m in/1.73m2 CKD-EPI Creatinine Equation (2020) Performed By: #### L 501.9520, L506.0250, L502.0250, L501.5200, L3300.9910, L500.4050, L7400.3000, L503.0105, L503.6150, L503.6550, L503.6075, L100.0100, L506.0400 #### [facility] [address] [place], [address] Glucose [Mass/Vol] 146 mg/dL High 70-99 [facility] Comment on above: Performed By: #### L 501.9520, L506.0250, L502.0250, L501.5200, L3300.9910, L500.4050, L7400.3000, L503.0105, L503.6150, L503.6550, L503.6075, L100.0100, L506.0400 #### [facility] [address] [place], [address] Phosphate [Mass/Vol] 3.9 mg/dL Normal 2.7-4.5 [facility] Comment on above: Performed By: #### L 501.9520, L506.0250, L502.0250, L501.5200, L3300.9910, L500.4050, L7400.3000, L503.0105, L503.6150, L503.6550, L503.6075, L100.0100, L506.0400 #### [facility] [address] [place], [address] Potassium [Moles/Vol] 4.9 mmol/L Normal 3.3-5.1 [facility] Comment on above: Performed By: #### L 501.9520, L506.0250, L502.0250, L501.5200, L3300.9910, L500.4050, L7400.3000, L503.0105, L503.6150, L503.6550, L503.6075, L100.0100, L506.0400 #### [facility] [address] [place], [address] Sodium [Moles/Vol] 140 mmol/L Normal 133-145 [facility] Comment on above: Performed By: #### L 501.9520, L506.0250, L502.0250, L501.5200, L3300.9910, L500.4050, L7400.3000, L503.0105, L503.6150, L503.6550, L503.6075, L100.0100, L506.0400 #### [facility] [address] [place], [address] Urea nitrogen [Mass/Vol] 24 mg/dL High - [facility] Comment on above: Performed By: #### L 501.9520, L506.0250, L502.0250, L501.5200, L3300.9910, L500.4050, L7400.3000, L503.0105, L503.6150, L503.6550, L503.6075, L100.0100, L506.0400 #### [facility] [address] [place], [place], [id number] Anion gap in Serum or Plasma Ordered By: Manohar Pablo on 06-11-2025 Anion gap [Moles/Vol] 12 mmol/L 03-13 [facility] BUN/creatinine ratioOrdered By: Manohar Pablo on 06-11-2025 Urea nitrogen/Creatinine [Mass ratio] 15.0 mg/mg 08-18 [facility] CBC-Complete Blood Cnt No Di ffon 06-11-2025 Erythrocyte distribution width (RBC) [Ratio] 13.9 % Normal 11.6-14.6 [facility] Comment on above: Order Comment: 111 Performed By: #### L 501.9520, L506.0250, L502.0250, L501.5200, L3300.9910, L500.4050, L7400.3000, L503.0105, L503.6150, L503.6550, L503.6075, L100.0100, L506.0400 #### [facility] [address] [place], [address] Hematocrit (Bld) [Volume fraction] 31.3 % Low 40-54 [facility] Comment on above: Order Comment: 111 Performed By: #### L 501.9520, L506.0250, L502.0250, L501.5200, L3300.9910, L500.4050, L7400.3000, L503.0105, L503.6150, L503.6550, L503.6075, L100.0100, L506.0400 #### [facility] [address] [place], [address] Hemoglobin (Bld) [Mass/Vol] 10.5 g/dL Low 13.0-16.5 [facility] Comment on above: Order Comment: 111 Performed By: #### L 501.9520, L506.0250, L502.0250, L501.5200, L3300.9910, L500.4050, L7400.3000, L503.0105, L503.6150, L503.6550, L503.6075, L100.0100, L506.0400 #### [facility] [address] [place], [address] MCH (RBC) [Entitic mass] 32.0 pg Normal 27.0-32.0 [facility] Comment on above: Order Comment: 111 Performed By: #### L 501.9520, L506.0250, L502.0250, L501.5200, L3300.9910, L500.4050, L7400.3000, L503.0105, L503.6150, L503.6550, L503.6075, L100.0100, L506.0400 #### [facility] [address] [place], [address] MCHC (RBC) [Mass/Vol] 33.5 g/dL Normal 32-36 [facility] Comment on above: Order Comment: 111 Performed By: #### L 501.9520, L506.0250, L502.0250, L501.5200, L3300.9910, L500.4050, L7400.3000, L503.0105, L503.6150, L503.6550, L503.6075, L100.0100, L506.0400 #### [facility] [address] [place], [address] MCV (RBC) [Entitic vol] 95.4 fL High 80-94 [facility] Comment on above: Order Comment: 111 Performed By: #### L 501.9520, L506.0250, L502.0250, L501.5200, L3300.9910, L500.4050, L7400.3000, L503.0105, L503.6150, L503.6550, L503.6075, L100.0100, L506.0400 #### [facility] [address] [place], [place], [phone] ([address] Platelet mean volume (Bld) [Entitic vol] 11.2 fL Normal 6.2-12.0 [facility] Comment on above: Order Comment: 111 Performed By: #### L 501.9520, L506.0250, L502.0250, L501.5200, L3300.9910, L500.4050, L7400.3000, L503.0105, L503.6150, L503.6550, L503.6075, L100.0100, L506.0400 #### [facility] [address] [place], [address] (527) Platelets (Bld) [#/Vol] 276 10*3/uL Normal 150-450 [facility] Comment on above: Order Comment: 111 Performed By: #### L 501.9520, L506.0250, L502.0250, L501.5200, L3300.9910, L500.4050, L7400.3000, L503.0105, L503.6150, L503.6550, L503.6075, L100.0100, L506.0400 #### [facility] [address] [place], [place], [phone] (128) RBC (Bld) [#/Vol] 3.28 10*6/uL Low 4.6-6.2 [facility] Comment on above: Order Comment: 111 Performed By: #### L 501.9520, L506.0250, L502.0250, L501.5200, L3300.9910, L500.4050, L7400.3000, L503.0105, L503.6150, L503.6550, L503.6075, L100.0100, L506.0400 #### [facility] [address] [place], [address] (256) RDW SD 48.7 fl High 35.1-43.9 [facility] Comment on above: Order Comment: 111 Performed By: #### L 501.9520, L506.0250, L502.0250, L501.5200, L3300.9910, L500.4050, L7400.3000, L503.0105, L503.6150, L503.6550, L503.6075, L100.0100, L506.0400 #### [facility] [address] [facility] [place], [address] WBC (Bld) [#/Vol] 7.6 10*3/uL Normal 4.4-11.0 [facility] Comment on above: Order Comment: 111 Performed By: #### L 501.9520, L506.0250, L502.0250, L501.5200, L3300.9910, L500.4050, L7400.3000, L503.0105, L503.6150, L503.6550, L503.6075, L100.0100, L506.0400 #### [facility] [address] [place], [place], [id number] Carbon dioxide, total [Moles /volume] in Central venous bloodOrdered By: Manohar Pablo on 06-11-2025 CO2 [Moles/Vol] 20.6 mmol/L Low 21.0-32.0 [facility] Chloride assayOrdered By: Liane Pablo on 06-11-2025 Chloride [Moles/Vol] 107 mmol/L 98-108 [facility] Erythrocyte distribution wid th ratioOrdered By: Manohar Pablo on 06-11-2025 Erythrocyte distribution width (RBC) [Ratio] 13.9 % 11.6-14.6 [facility] Erythrocyte distribution wid th standard deviationOrdered By: Manohar Pablo on 06-11-2025 Erythrocyte distribution width (RBC) [Ratio] 48.7 fl High 35.1-43.9 [facility] Glomerular filtration rate ( GFR) estimation/1.73 sq m using serum, plasma, or whole bOrdered By: Manohar Pablo on 06-11-2025 GFR/1.73 sq M.predicted among non-blacks MDRD (S/P/Bld) [Vol rate/Area] 38 mL/min/{1.73_m2} Low >60 [facility] Comment on above: mL/min/1.73m2 CKD-EP I Creatinine Equation (2020) Hematocrit Auto (Bld) [Volum e fraction]Ordered By: Manohar Pablo on 06-11-2025 Hematocrit (Bld) [Volume fraction] 31.3 % Low 40-54 [facility] Hemoglobin measurementOrdere d By: Manohar Pablo on 06-11-2025 Hemoglobin (Bld) [Mass/Vol] 10.5 g/dL Low 13.0-16.5 [facility] MCV (mean corpuscular volume ) determinationOrdered By: Manohar Pablo 06-11-2025 MCV (RBC) [Entitic vol] 95.4 fL High 80-94 [facility] Mean corpuscular hemoglobin (MCH) determinationOrdered By: Manohar Pablo 06-11-2025 MCH (RBC) [Entitic mass] 32.0 pg 27.0-32.0 [facility] Mean corpuscular hemoglobin concentration (MCHC) determinationOrdered By: Manohar Pablo 06-11-2025 MCHC (RBC) [Mass/Vol] 33.5 g/dL 32-36 [facility] Mean platelet volume determi nationOrdered By: Manohar Pablo 06-11-2025 Platelet mean volume (Bld) [Entitic vol] 11.2 fL 6.2-12.0 [facility] Platelet countOrdered By: Liane Pablo on 06-11-2025 Platelets (Bld) [#/Vol] 276 10*3/uL 150-450 [facility] Potassium measurement (mass/ volume)Ordered By: Manohar Pablo on 06-11-2025 Potassium (Unsp spec) [Mass/Vol] 4.3 mmol/L 3.3-5.1 [facility] RBC Auto (Bld) [#/Vol]Ordere d By: Manohar Pablo on 06-11-2025 RBC (Bld) [#/Vol] 3.28 10*6/uL Low 4.6-6.2 [facility] Renal Profileon 06-11-2025 Albumin [Mass/Vol] 3.5 g/dL Normal 3.4-4.8 [facility] Comment on above: Order Comment: 111 Performed By: #### L 501.9520, L506.0250, L502.0250, L501.5200, L3300.9910, L500.4050, L7400.3000, L503.0105, L503.6150, L503.6550, L503.6075, L100.0100, L506.0400 #### [facility] [address] [facility] [place], [address] BUN/CRE 15.0 RATIO Normal 10-20 [facility] Comment on above: Order Comment: 111 Performed By: #### L 501.9520, L506.0250, L502.0250, L501.5200, L3300.9910, L500.4050, L7400.3000, L503.0105, L503.6150, L503.6550, L503.6075, L100.0100, L506.0400 #### [facility] [address] [facility] [place], [address] Calcium [Mass/Vol] 9.3 mg/dL Normal 7.6-11.0 [facility] Comment on above: Order Comment: 111 Performed By: #### L 501.9520, L506.0250, L502.0250, L501.5200, L3300.9910, L500.4050, L7400.3000, L503.0105, L503.6150, L503.6550, L503.6075, L100.0100, L506.0400 #### [facility] [address] [place], [place], [phone] (928) Chloride [Moles/Vol] 107 mmol/L Normal 98-108 [facility] Comment on above: Order Comment: 111 Performed By: #### L 501.9520, L506.0250, L502.0250, L501.5200, L3300.9910, L500.4050, L7400.3000, L503.0105, L503.6150, L503.6550, L503.6075, L100.0100, L506.0400 #### [facility] [address] [place], [place], [phone] CO2 [Moles/Vol] 20.6 mmol/L Low 21.0-32.0 [facility] Comment on above: Order Comment: 111 Performed By: #### L 501.9520, L506.0250, L502.0250, L501.5200, L3300.9910, L500.4050, L7400.3000, L503.0105, L503.6150, L503.6550, L503.6075, L100.0100, L506.0400 #### [facility] [address] [place], [place], [id number] Creatinine [Mass/Vol] 1.81 mg/dL High 0.70-1.20 [facility] Comment on above: Order Comment: 111 Performed By: #### L 501.9520, L506.0250, L502.0250, L501.5200, L3300.9910, L500.4050, L7400.3000, L503.0105, L503.6150, L503.6550, L503.6075, L100.0100, L506.0400 #### [facility] [address] [place], [place], [id number] GAP 12 Normal 5-15 [facility] Comment on above: Order Comment: 111 Performed By: #### L 501.9520, L506.0250, L502.0250, L501.5200, L3300.9910, L500.4050, L7400.3000, L503.0105, L503.6150, L503.6550, L503.6075, L100.0100, L506.0400 #### [facility] [address] [facility] [place], [address] GFR/1.73 sq M.predicted among non-blacks MDRD (S/P/Bld) [Vol rate/Area] 38 mL/min/{1.73_m2} Low >60 [facility] Comment on above: Order Comment: 111 Result Comment: mL/m in/1.73m2 CKD-EPI Creatinine Equation (2020) Performed By: #### L 501.9520, L506.0250, L502.0250, L501.5200, L3300.9910, L500.4050, L7400.3000, L503.0105, L503.6150, L503.6550, L503.6075, L100.0100, L506.0400 #### [facility] [address] [place], [place], [id number] Glucose [Mass/Vol] 143 mg/dL High 70-99 [facility] Comment on above: Order Comment: 111 Performed By: #### L 501.9520, L506.0250, L502.0250, L501.5200, L3300.9910, L500.4050, L7400.3000, L503.0105, L503.6150, L503.6550, L503.6075, L100.0100, L506.0400 #### [facility] [address] [place], [address] Phosphate [Mass/Vol] 3.4 mg/dL Normal 2.7-4.5 [facility] Comment on above: Order Comment: 111 Performed By: #### L 501.9520, L506.0250, L502.0250, L501.5200, L3300.9910, L500.4050, L7400.3000, L503.0105, L503.6150, L503.6550, L503.6075, L100.0100, L506.0400 #### [facility] [address] [place], [address] Potassium [Moles/Vol] 4.3 mmol/L Normal 3.3-5.1 [facility] Comment on above: Order Comment: 111 Performed By: #### L 501.9520, L506.0250, L502.0250, L501.5200, L3300.9910, L500.4050, L7400.3000, L503.0105, L503.6150, L503.6550, L503.6075, L100.0100, L506.0400 #### [facility] [address] [place], [address] Sodium [Moles/Vol] 140 mmol/L Normal 133-145 [facility] Comment on above: Order Comment: 111 Performed By: #### L 501.9520, L506.0250, L502.0250, L501.5200, L3300.9910, L500.4050, L7400.3000, L503.0105, L503.6150, L503.6550, L503.6075, L100.0100, L506.0400 #### [facility] [address] [place], [address] Urea nitrogen [Mass/Vol] 27 mg/dL High 4-19 [place] [facility] Comment on above: Order Comment: 111 Performed By: #### L 501.9520, L506.0250, L502.0250, L501.5200, L3300.9910, L500.4050, L7400.3000, L503.0105, L503.6150, L503.6550, L503.6075, L100.0100, L506.0400 #### [facility] [place], [address] Serum creatinine measurement (mass/volume)Ordered By: Manohar Pablo on 06-11-2025 Creatinine [Mass/Vol] 1.81 mg/dL High 0.70-1.20 [facility] Serum glucose measurement (m ass/volume)Ordered By: Manohar Pablo on 06-11-2025 Glucose [Mass/Vol] 143 mg/dL High 70-99 [facility] Serum or plasma albumin quynh urement (mass/volume)Ordered By: Manohar Pablo on 06-11-2025 Albumin [Mass/Vol] 3.5 g/dL 3.4-4.8 [facility] Serum or plasma calcium quynh urement (mass/volume)Ordered By: Manohar Pablo on 06-11-2025 Calcium [Mass/Vol] 9.3 mg/dL 7.6-11.0 [facility] Serum or plasma urea nitroge n measurement (mass/volume)Ordered By: Manohar Pablo on 06-11-2025 Urea nitrogen [Mass/Vol] 27 mg/dL High 4-19 [facility] Sodium levelOrdered By: Caity Pablo on 06-11-2025 Sodium [Moles/Vol] 140 mmol/L 133-145 [facility] White blood cell (WBC) count Ordered By: Manohar Pablo on 06-11-2025 WBC (Bld) [#/Vol] 7.6 10*3/uL 4.4-11.0 [facility] Urine Cultureon 06-01-2025 URC 111 #1, 2, 3 Below infection level. 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 Submit a new specimen if indicated. 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 [place], [place], [id number] Bilirubin Test strip Ql (U)O rdered By: Sharmila Arteaga on 05-30-2025 Bilirubin Ql (U) Negative Negative [facility] Ketones Test strip Ql (U)Ord ered By: Sharmila Arteaga on 05-30-2025 Ketones Ql (U) Negative Negative [facility] Microscopic analysis of urin e for red blood cells (RBC)Ordered By: Sharmila Arteaga on 05-30-2025 Microscopic analysis of urine for red blood cells (RBC) 0 SEEN /hpf 0-5 [facility] Mucus LM Ql (Urine sed)Order ed By: Sharmila Arteaga on 05-30-2025 Mucus Ql (Urine sed) 0 SEEN /hpf [facility] Nitrite Test strip Ql (U)Ord ered By: Sharmila Arteaga on 05-30-2025 Nitrite Ql (U) Negative Negative [facility] Protein Test strip Ql (U)Ord ered By: Sharmila Arteaga on 05-30-2025 Protein Ql (U) 100 mg/dl High Negative [facility] Squamous epithelial cells de tection in urine sediment by light microscopyOrdered By: Sharmila Arteaga on 05-30-2025 Epithelial cells.squamous LM Ql (Urine sed) 0-5 SEEN /hpf 0-5 [facility] Urinalysis, Completeon 05-30 EPI,SQUAMOUS 0-5 SEEN Normal 0-5 [facility] Comment on above: Order Comment: 111CL JAMA CATCH Performed By: #### L 501.9520, L506.0250, L502.0250, L501.5200, L3300.9910, L500.4050, L7400.3000, L503.0105, L503.6150, L503.6550, L503.6075, L100.0100, L506.0400 #### [facility] [address] [place], [address] BACTERIA 0 SEEN Normal None Seen [facility] Comment on above: Order Comment: 111CL JAMA CATCH Performed By: #### L 501.9520, L506.0250, L502.0250, L501.5200, L3300.9910, L500.4050, L7400.3000, L503.0105, L503.6150, L503.6550, L503.6075, L100.0100, L506.0400 #### [facility] [address] [place], [address] Mucus Ql (Urine sed) 0 SEEN Normal [facility] Comment on above: Order Comment: 111CL JAMA CATCH Performed By: #### L 501.9520, L506.0250, L502.0250, L501.5200, L3300.9910, L500.4050, L7400.3000, L503.0105, L503.6150, L503.6550, L503.6075, L100.0100, L506.0400 #### [facility] [address] [place], [address] RBC 0 SEEN Normal 0-5 [facility] Comment on above: Order Comment: 111CL JAMA CATCH Performed By: #### L 501.9520, L506.0250, L502.0250, L501.5200, L3300.9910, L500.4050, L7400.3000, L503.0105, L503.6150, L503.6550, L503.6075, L100.0100, L506.0400 #### [facility] [address] [place], [address] WBC 0 SEEN Normal 0-5 [facility] Comment on above: Order Comment: 111CL JAMA CATCH Performed By: #### L 501.9520, L506.0250, L502.0250, L501.5200, L3300.9910, L500.4050, L7400.3000, L503.0105, L503.6150, L503.6550, L503.6075, L100.0100, L506.0400 #### [facility] [place], [address] Urine clarityOrdered By: James Arteaga on 05-30-2025 Clarity (U) Sl. Cloudy Clear [facility] Urine color determinationOrd ered By: Sharmila Arteaga on 05-30-2025 Color (U) Yellow Yellow [facility] Urine cultureOrdered By: James Arteaga on 05-30-2025 Bacteria identified Cx Nom (U) GNR lactose senior network systems engineer Abnormal [facility] Bacteria identified Cx Nom (U) Positive Abnormal [facility] Bacteria identified Cx Nom (U) GNR lactose senior network systems engineer#2 Abnormal [facility] Urine glucose detectionOrder ed By: Sharmila Arteaga on 05-30-2025 Glucose Ql (U) 250 mg/dl High Normal [facility] Urine leukocyte esterase det ection by dipstickOrdered By: Sharmila Arteaga on 05-30-2025 Leukocyte esterase Test strip Ql (U) Negative Negative [facility] Urine pHOrdered By: Sharmila Morgan udsaloni on 05-30-2025 pH (U) 7.0 [pH] 5.0 - 8.0 [facility] Urine sediment bacteria coun t by microscopy (number/high power field)Ordered By: Sharmila Arteaga on 05-30-2025 Bacteria LM.HPF (Urine sed) [#/Area] 0 /[HPF] None Seen [facility] Urine specific gravity measu rementOrdered By: Sharmila Arteaga on 05-30-2025 Specific gravity (U) [Rel density] 1.010 1.002-1.030 [facility] Urine urobilinogen measureme ntOrdered By: Sharmila Arteaga on 05-30-2025 Urobilinogen Ql (U) Normal mg/dl Normal [facility] White blood cell countOrdere d By: Sharmila Arteaga on 05-30-2025 White blood cell count 0 SEEN /hpf 0-5 [facility] Anion gap in Serum or Plasma Ordered By: Sharmila Arteaga on 05-28-2025 Anion gap [Moles/Vol] 11 mmol/L 03-13 [facility] BUN/creatinine ratioOrdered By: Sharmila Arteaga on 05-28-2025 Urea nitrogen/Creatinine [Mass ratio] 17.2 mg/mg 08-18 [facility] Basic Metabolic Profile (BMP )on 05-28-2025 GAP 11 Normal 03-13 [facility] Comment on above: Order Comment: 111 Performed By: #### L 501.9520, L506.0250, L502.0250, L501.5200, L3300.9910, L500.4050, L7400.3000, L503.0105, L503.6150, L503.6550, L503.6075, L100.0100, L506.0400 #### [facility] [address] [place], [address] BUN/CRE 17.2 RATIO Normal 08-18 [facility] Comment on above: Order Comment: 111 Performed By: #### L 501.9520, L506.0250, L502.0250, L501.5200, L3300.9910, L500.4050, L7400.3000, L503.0105, L503.6150, L503.6550, L503.6075, L100.0100, L506.0400 #### [facility] [address] [place], [place], [id number] Calcium [Mass/Vol] 9.1 mg/dL Normal 7.6-11.0 [facility] Comment on above: Order Comment: 111 Performed By: #### L 501.9520, L506.0250, L502.0250, L501.5200, L3300.9910, L500.4050, L7400.3000, L503.0105, L503.6150, L503.6550, L503.6075, L100.0100, L506.0400 #### [facility] [address] [place], [address] (533) Chloride [Moles/Vol] 100 mmol/L Normal 98-108 [facility] Comment on above: Order Comment: 111 Performed By: #### L 501.9520, L506.0250, L502.0250, L501.5200, L3300.9910, L500.4050, L7400.3000, L503.0105, L503.6150, L503.6550, L503.6075, L100.0100, L506.0400 #### [facility] [address] [place], [address] (446) CO2 [Moles/Vol] 21.4 mmol/L Normal 21.0-32.0 [facility] Comment on above: Order Comment: 111 Performed By: #### L 501.9520, L506.0250, L502.0250, L501.5200, L3300.9910, L500.4050, L7400.3000, L503.0105, L503.6150, L503.6550, L503.6075, L100.0100, L506.0400 #### [facility] [address] [place], [address] (935) Creatinine [Mass/Vol] 1.86 mg/dL High 0.70-1.20 [facility] Comment on above: Order Comment: 111 Performed By: #### L 501.9520, L506.0250, L502.0250, L501.5200, L3300.9910, L500.4050, L7400.3000, L503.0105, L503.6150, L503.6550, L503.6075, L100.0100, L506.0400 #### [facility] [address] [place], [address] (189) GFR/1.73 sq M.predicted among non-blacks MDRD (S/P/Bld) [Vol rate/Area] 37 mL/min/{1.73_m2} Low >60 [facility] Comment on above: Order Comment: 111 Result Comment: mL/m in/1.73m2 CKD-EPI Creatinine Equation (2020) Performed By: #### L 501.9520, L506.0250, L502.0250, L501.5200, L3300.9910, L500.4050, L7400.3000, L503.0105, L503.6150, L503.6550, L503.6075, L100.0100, L506.0400 #### [facility] [address] [place], [address] Glucose [Mass/Vol] 407 mg/dL High 70-99 [facility] Comment on above: Order Comment: 111 Performed By: #### L 501.9520, L506.0250, L502.0250, L501.5200, L3300.9910, L500.4050, L7400.3000, L503.0105, L503.6150, L503.6550, L503.6075, L100.0100, L506.0400 #### [facility] [address] [place], [address] Potassium [Moles/Vol] 4.9 mmol/L Normal 3.3-5.1 [facility] Comment on above: Order Comment: 111 Performed By: #### L 501.9520, L506.0250, L502.0250, L501.5200, L3300.9910, L500.4050, L7400.3000, L503.0105, L503.6150, L503.6550, L503.6075, L100.0100, L506.0400 #### [facility] [address] [place], [address] Sodium [Moles/Vol] 133 mmol/L Normal 133-145 [facility] Comment on above: Order Comment: 111 Performed By: #### L 501.9520, L506.0250, L502.0250, L501.5200, L3300.9910, L500.4050, L7400.3000, L503.0105, L503.6150, L503.6550, L503.6075, L100.0100, L506.0400 #### [facility] [address] [place], [place], [id number] Urea nitrogen [Mass/Vol] 32 mg/dL High 4-19 [facility] Comment on above: Order Comment: 111 Performed By: #### L 501.9520, L506.0250, L502.0250, L501.5200, L3300.9910, L500.4050, L7400.3000, L503.0105, L503.6150, L503.6550, L503.6075, L100.0100, L506.0400 #### [facility] [address] [place], [place], [id number] CBC-Complete Blood Cnt No Di ffon 05-28-2025 Erythrocyte distribution width (RBC) [Ratio] 13.6 % Normal 11.6-14.6 [facility] Comment on above: Order Comment: 111 Performed By: #### L 501.9520, L506.0250, L502.0250, L501.5200, L3300.9910, L500.4050, L7400.3000, L503.0105, L503.6150, L503.6550, L503.6075, L100.0100, L506.0400 #### [facility] [address] [place], [place], [address] Hematocrit (Bld) [Volume fraction] 30.7 % Low 40-54 [facility] Comment on above: Order Comment: 111 Performed By: #### L 501.9520, L506.0250, L502.0250, L501.5200, L3300.9910, L500.4050, L7400.3000, L503.0105, L503.6150, L503.6550, L503.6075, L100.0100, L506.0400 #### [facility] [address] [place], [address] Hemoglobin (Bld) [Mass/Vol] 10.2 g/dL Low 13.0-16.5 [facility] Comment on above: Order Comment: 111 Performed By: #### L 501.9520, L506.0250, L502.0250, L501.5200, L3300.9910, L500.4050, L7400.3000, L503.0105, L503.6150, L503.6550, L503.6075, L100.0100, L506.0400 #### [facility] [address] [place], [address] MCH (RBC) [Entitic mass] 32.0 pg Normal 27.0-32.0 [facility] Comment on above: Order Comment: 111 Performed By: #### L 501.9520, L506.0250, L502.0250, L501.5200, L3300.9910, L500.4050, L7400.3000, L503.0105, L503.6150, L503.6550, L503.6075, L100.0100, L506.0400 #### [facility] [address] [place], [address] MCHC (RBC) [Mass/Vol] 33.2 g/dL Normal 32-36 [facility] Comment on above: Order Comment: 111 Performed By: #### L 501.9520, L506.0250, L502.0250, L501.5200, L3300.9910, L500.4050, L7400.3000, L503.0105, L503.6150, L503.6550, L503.6075, L100.0100, L506.0400 #### [facility] [address] [place], [address] MCV (RBC) [Entitic vol] 96.2 fL High 80-94 [facility] Comment on above: Order Comment: 111 Performed By: #### L 501.9520, L506.0250, L502.0250, L501.5200, L3300.9910, L500.4050, L7400.3000, L503.0105, L503.6150, L503.6550, L503.6075, L100.0100, L506.0400 #### [facility] [address] [place], [address] Platelet mean volume (Bld) [Entitic vol] 11.3 fL Normal 6.2-12.0 [facility] Comment on above: Order Comment: 111 Performed By: #### L 501.9520, L506.0250, L502.0250, L501.5200, L3300.9910, L500.4050, L7400.3000, L503.0105, L503.6150, L503.6550, L503.6075, L100.0100, L506.0400 #### [facility] [address] [place], [address] Platelets (Bld) [#/Vol] 279 10*3/uL Normal 150-450 [facility] Comment on above: Order Comment: 111 Performed By: #### L 501.9520, L506.0250, L502.0250, L501.5200, L3300.9910, L500.4050, L7400.3000, L503.0105, L503.6150, L503.6550, L503.6075, L100.0100, L506.0400 #### [facility] [address] [place], [address] RBC (Bld) [#/Vol] 3.19 10*6/uL Low 4.6-6.2 [facility] Comment on above: Order Comment: 111 Performed By: #### L 501.9520, L506.0250, L502.0250, L501.5200, L3300.9910, L500.4050, L7400.3000, L503.0105, L503.6150, L503.6550, L503.6075, L100.0100, L506.0400 #### [facility] [address] [place], [address] RDW SD 47.9 fl High 35.1-43.9 [facility] Comment on above: Order Comment: 111 Performed By: #### L 501.9520, L506.0250, L502.0250, L501.5200, L3300.9910, L500.4050, L7400.3000, L503.0105, L503.6150, L503.6550, L503.6075, L100.0100, L506.0400 #### [facility] [address] [place], [address] WBC (Bld) [#/Vol] 8.3 10*3/uL Normal 4.4-11.0 [facility] Comment on above: Order Comment: 111 Performed By: #### L 501.9520, L506.0250, L502.0250, L501.5200, L3300.9910, L500.4050, L7400.3000, L503.0105, L503.6150, L503.6550, L503.6075, L100.0100, L506.0400 #### [facility] [address] [place], [address] Carbon dioxide, total [Moles /volume] in Central venous bloodOrdered By: Sharmila Arteaga on 05-28-2025 CO2 [Moles/Vol] 21.4 mmol/L 21.0-32.0 [facility] Chloride assayOrdered By: Boom Arteaga on 05-28-2025 Chloride [Moles/Vol] 100 mmol/L 98-108 [facility] Erythrocyte distribution wid th ratioOrdered By: Sharmila Arteaga on 05-28-2025 Erythrocyte distribution width (RBC) [Ratio] 13.6 % 11.6-14.6 [facility] Erythrocyte distribution wid th standard deviationOrdered By: Sharmila Arteaga on 05-28-2025 Erythrocyte distribution width (RBC) [Ratio] 47.9 fl High 35.1-43.9 [facility] Glomerular filtration rate ( GFR) estimation/1.73 sq m using serum, plasma, or whole bOrdered By: Sharmila Arteaga on 05-28-2025 GFR/1.73 sq M.predicted among non-blacks MDRD (S/P/Bld) [Vol rate/Area] 37 mL/min/{1.73_m2} Low >60 [facility] Comment on above: mL/min/1.73m2 CKD-EP I Creatinine Equation (2020) Hematocrit Auto (Bld) [Volum e fraction]Ordered By: Sharmila Arteaga on 05-28-2025 Hematocrit (Bld) [Volume fraction] 30.7 % Low 40-54 [facility] Hemoglobin A1con 05-28-2025 HbA1c (Bld) [Mass fraction] 10.8 % High <=5.6 [facility] Comment on above: Order Comment: 111 Result Comment: Norm al < 5.7 % Prediabetic 5.7 - 6.4 % Diabetic >or= 6.5 % Please note range changes. Performed By: #### L 501.9520, L506.0250, L502.0250, L501.5200, L3300.9910, L500.4050, L7400.3000, L503.0105, L503.6150, L503.6550, L503.6075, L100.0100, L506.0400 #### [facility] [place], [address] Hemoglobin A1c percentageOrd ered By: Sharmila Arteaga on 05-28-2025 HbA1c (Bld) [Mass fraction] 10.8 % High <5.7 [facility] Comment on above: Normal < 5.7 % Predi abetic 5.7 - 6.4 % Diabetic >or= 6.5 % Please note range changes. Hemoglobin measurementOrdere d By: Sharmila Arteaga on 05-28-2025 Hemoglobin (Bld) [Mass/Vol] 10.2 g/dL Low 13.0-16.5 [facility] MCV (mean corpuscular volume ) determinationOrdered By: Sharmila Arteaga on 05-28-2025 MCV (RBC) [Entitic vol] 96.2 fL High 80-94 [facility] Mean corpuscular hemoglobin (MCH) determinationOrdered By: Sharmila Arteaga on 05-28-2025 MCH (RBC) [Entitic mass] 32.0 pg 27.0-32.0 [facility] Mean corpuscular hemoglobin concentration (MCHC) determinationOrdered By: Sharmila Arteaga on 05-28-2025 MCHC (RBC) [Mass/Vol] 33.2 g/dL 32-36 [facility] Mean platelet volume determi nationOrdered By: Sharmila Arteaga on 05-28-2025 Platelet mean volume (Bld) [Entitic vol] 11.3 fL 6.2-12.0 [facility] Platelet countOrdered By: Boom Arteaga on 05-28-2025 Platelets (Bld) [#/Vol] 279 10*3/uL 150-450 [facility] Potassium measurement (mass/ volume)Ordered By: Sharmila Arteaga on 05-28-2025 Potassium (Unsp spec) [Mass/Vol] 4.9 mmol/L 3.3-5.1 [facility] RBC Auto (Bld) [#/Vol]Ordere d By: Sharmila Arteaga on 05-28-2025 RBC (Bld) [#/Vol] 3.19 10*6/uL Low 4.6-6.2 [facility] Serum creatinine measurement (mass/volume)Ordered By: Sharmila Arteaga on 05-28-2025 Creatinine [Mass/Vol] 1.86 mg/dL High 0.70-1.20 [facility] Serum glucose measurement (m ass/volume)Ordered By: Sharmila Arteaga on 05-28-2025 Glucose [Mass/Vol] 407 mg/dL High 70-99 [facility] Serum or plasma calcium quynh urement (mass/volume)Ordered By: Sharmila Arteaga on 05-28-2025 Calcium [Mass/Vol] 9.1 mg/dL 7.6-11.0 [facility] Serum or plasma urea nitroge n measurement (mass/volume)Ordered By: Sharmila Arteaga on 05-28-2025 Urea nitrogen [Mass/Vol] 32 mg/dL High 4-19 [facility] Sodium levelOrdered By: Angel Arteaga on 05-28-2025 Sodium [Moles/Vol] 133 mmol/L 133-145 [facility] White blood cell (WBC) count Ordered By: Sharmila Arteaga on 05-28-2025 WBC (Bld) [#/Vol] 8.3 10*3/uL 4.4-11.0 [facility] Anion gap in Serum or Plasma Ordered By: Manohar Pablo on 04-22-2025 Anion gap [Moles/Vol] 11 mmol/L 5-15 [facility] BUN/creatinine ratioOrdered By: Manohar Pablo on 04-22-2025 Urea nitrogen/Creatinine [Mass ratio] 15.6 mg/mg 10-20 [facility] Carbon dioxide, total [Moles /volume] in Central venous bloodOrdered By: Manohar Pablo on 04-22-2025 CO2 [Moles/Vol] 22.2 mmol/L 21.0-32.0 [facility] Chloride assayOrdered By: Liane Pablo on 04-22-2025 Chloride [Moles/Vol] 105 mmol/L 98-108 [facility] Ferritinon 04-22-2025 Ferritin [Mass/Vol] 578 ng/mL High 37-417 [facility] Comment on above: Order Comment: 111 Performed By: #### L 501.9520, L506.0250, L502.0250, L501.5200, L3300.9910, L500.4050, L7400.3000, L503.0105, L503.6150, L503.6550, L503.6075, L100.0100, L506.0400 #### [facility] [address] [place], [address] Glomerular filtration rate ( GFR) estimation/1.73 sq m using serum, plasma, or whole bOrdered By: Manohar Pablo on 04-22-2025 GFR/1.73 sq M.predicted among non-blacks MDRD (S/P/Bld) [Vol rate/Area] 36 mL/min/{1.73_m2} Low >60 [facility] Comment on above: mL/min/1.73m2 CKD-EP I Creatinine Equation (2020) Iron measurement (mass/mass) Ordered By: Manohar Pablo on 04-22-2025 Iron (Unsp spec) [Mass/Mass] 67 ug/dL 65-175 [facility] Iron+Iron Binding Capacityon 04-22-2025 Iron [Mass/Vol] 67 ug/dL Normal 65-175 [facility] Comment on above: Order Comment: 111 Performed By: #### L 501.9520, L506.0250, L502.0250, L501.5200, L3300.9910, L500.4050, L7400.3000, L503.0105, L503.6150, L503.6550, L503.6075, L100.0100, L506.0400 #### [facility] [address] [place], [address] IRON SATURATION 20.0 Normal 9-55 [facility] Comment on above: Order Comment: 111 Performed By: #### L 501.9520, L506.0250, L502.0250, L501.5200, L3300.9910, L500.4050, L7400.3000, L503.0105, L503.6150, L503.6550, L503.6075, L100.0100, L506.0400 #### [facility] [address] [place], [address] TIBC 340 ug/dL Normal 250-450 [facility] Comment on above: Order Comment: 111 Performed By: #### L 501.9520, L506.0250, L502.0250, L501.5200, L3300.9910, L500.4050, L7400.3000, L503.0105, L503.6150, L503.6550, L503.6075, L100.0100, L506.0400 #### [facility] [address] [place], [address] UIBC 273 ug/dL Normal 228-428 [facility] Comment on above: Order Comment: 111 Performed By: #### L 501.9520, L506.0250, L502.0250, L501.5200, L3300.9910, L500.4050, L7400.3000, L503.0105, L503.6150, L503.6550, L503.6075, L100.0100, L506.0400 #### [facility] [address] [place], [place], [id number] No Panel InformationOrdered By: Manohar Pablo on 04-22-2025 Unsaturated Iron Binding Capacity 273 ug/dL 228-428 [facility] PTHINon 04-22-2025 PTH 21 pg/mL Normal 11-61 [facility] Comment on above: Order Comment: 111 Performed By: #### L 501.9520, L506.0250, L502.0250, L501.5200, L3300.9910, L500.4050, L7400.3000, L503.0105, L503.6150, L503.6550, L503.6075, L100.0100, L506.0400 #### [facility] [address] [place], [address] Potassium measurement (mass/ volume)Ordered By: Manohar Pablo on 04-22-2025 Potassium (Unsp spec) [Mass/Vol] 4.6 mmol/L 3.3-5.1 [facility] Renal Profileon 04-22-2025 Albumin [Mass/Vol] 3.6 g/dL Normal 3.4-4.8 [facility] Comment on above: Order Comment: 111 Performed By: #### L 501.9520, L506.0250, L502.0250, L501.5200, L3300.9910, L500.4050, L7400.3000, L503.0105, L503.6150, L503.6550, L503.6075, L100.0100, L506.0400 #### [facility] [address] [place], [place], [phone] ([phone]) BUN/CRE 15.6 RATIO Normal 10-20 [facility] Comment on above: Order Comment: 111 Performed By: #### L 501.9520, L506.0250, L502.0250, L501.5200, L3300.9910, L500.4050, L7400.3000, L503.0105, L503.6150, L503.6550, L503.6075, L100.0100, L506.0400 #### [facility] [address] [place], [place], [phone] (425) Calcium [Mass/Vol] 9.3 mg/dL Normal 7.6-11.0 [facility] Comment on above: Order Comment: 111 Performed By: #### L 501.9520, L506.0250, L502.0250, L501.5200, L3300.9910, L500.4050, L7400.3000, L503.0105, L503.6150, L503.6550, L503.6075, L100.0100, L506.0400 #### [facility] [address] [place], [place], [phone] ([phone]) Chloride [Moles/Vol] 105 mmol/L Normal 98-108 [facility] Comment on above: Order Comment: 111 Performed By: #### L 501.9520, L506.0250, L502.0250, L501.5200, L3300.9910, L500.4050, L7400.3000, L503.0105, L503.6150, L503.6550, L503.6075, L100.0100, L506.0400 #### [facility] [address] [place], [address] CO2 [Moles/Vol] 22.2 mmol/L Normal 21.0-32.0 [facility] Comment on above: Order Comment: 111 Performed By: #### L 501.9520, L506.0250, L502.0250, L501.5200, L3300.9910, L500.4050, L7400.3000, L503.0105, L503.6150, L503.6550, L503.6075, L100.0100, L506.0400 #### [facility] [address] [place], [address] Creatinine [Mass/Vol] 1.91 mg/dL High 0.70-1.20 [facility] Comment on above: Order Comment: 111 Performed By: #### L 501.9520, L506.0250, L502.0250, L501.5200, L3300.9910, L500.4050, L7400.3000, L503.0105, L503.6150, L503.6550, L503.6075, L100.0100, L506.0400 #### [facility] [address] [place], [place], [id number] GAP 11 Normal 5-15 [facility] Comment on above: Order Comment: 111 Performed By: #### L 501.9520, L506.0250, L502.0250, L501.5200, L3300.9910, L500.4050, L7400.3000, L503.0105, L503.6150, L503.6550, L503.6075, L100.0100, L506.0400 #### [facility] [address] [place], [address] GFR/1.73 sq M.predicted among non-blacks MDRD (S/P/Bld) [Vol rate/Area] 36 mL/min/{1.73_m2} Low >60 [facility] Comment on above: Order Comment: 111 Result Comment: mL/m in/1.73m2 CKD-EPI Creatinine Equation (2020) Performed By: #### L 501.9520, L506.0250, L502.0250, L501.5200, L3300.9910, L500.4050, L7400.3000, L503.0105, L503.6150, L503.6550, L503.6075, L100.0100, L506.0400 #### [facility] [address] [place], [address] Glucose [Mass/Vol] 173 mg/dL High 70-99 [facility] Comment on above: Order Comment: 111 Performed By: #### L 501.9520, L506.0250, L502.0250, L501.5200, L3300.9910, L500.4050, L7400.3000, L503.0105, L503.6150, L503.6550, L503.6075, L100.0100, L506.0400 #### [facility] [address] [place], [address] Phosphate [Mass/Vol] 3.1 mg/dL Normal 2.7-4.5 [facility] Comment on above: Order Comment: 111 Performed By: #### L 501.9520, L506.0250, L502.0250, L501.5200, L3300.9910, L500.4050, L7400.3000, L503.0105, L503.6150, L503.6550, L503.6075, L100.0100, L506.0400 #### [facility] [address] [place], [address] Potassium [Moles/Vol] 4.6 mmol/L Normal 3.3-5.1 [facility] Comment on above: Order Comment: 111 Performed By: #### L 501.9520, L506.0250, L502.0250, L501.5200, L3300.9910, L500.4050, L7400.3000, L503.0105, L503.6150, L503.6550, L503.6075, L100.0100, L506.0400 #### [facility] [address] [place], [place], [address] Sodium [Moles/Vol] 139 mmol/L Normal 133-145 [facility] Comment on above: Order Comment: 111 Performed By: #### L 501.9520, L506.0250, L502.0250, L501.5200, L3300.9910, L500.4050, L7400.3000, L503.0105, L503.6150, L503.6550, L503.6075, L100.0100, L506.0400 #### [facility] [address] [facility] [place], [place], [address] Urea nitrogen [Mass/Vol] 30 mg/dL High 4-19 [facility] Comment on above: Order Comment: 111 Performed By: #### L 501.9520, L506.0250, L502.0250, L501.5200, L3300.9910, L500.4050, L7400.3000, L503.0105, L503.6150, L503.6550, L503.6075, L100.0100, L506.0400 #### [facility] [address] [facility] [place], [place], [address] Serum creatinine measurement (mass/volume)Ordered By: Manohar Pablo on 04-22-2025 Creatinine [Mass/Vol] 1.91 mg/dL High 0.70-1.20 [facility] Serum glucose measurement (m ass/volume)Ordered By: Manohar Pablo on 04-22-2025 Glucose [Mass/Vol] 173 mg/dL High 70-99 [facility] Serum or plasma albumin quynh urement (mass/volume)Ordered By: Manohar Pablo on 04-22-2025 Albumin [Mass/Vol] 3.6 g/dL 3.4-4.8 [facility] Serum or plasma calcium quynh urement (mass/volume)Ordered By: Manohar Pablo on 04-22-2025 Calcium [Mass/Vol] 9.3 mg/dL 7.6-11.0 [facility] Serum or plasma ferritin oanh surement (mass/volume)Ordered By: Manohar Pablo on 04-22-2025 Ferritin [Mass/Vol] 578 ng/mL High 37-417 [facility] Serum or plasma iron saturat ion measurement (mass fraction)Ordered By: Manohar Pablo on 04-22-2025 Iron saturation [Mass fraction] 20.0 % 9-55 [facility] Serum or plasma urea nitroge n measurement (mass/volume)Ordered By: Manohar Pablo on 04-22-2025 Urea nitrogen [Mass/Vol] 30 mg/dL High 4-19 [facility] Sodium levelOrdered By: Caity Pablo on 04-22-2025 Sodium [Moles/Vol] 139 mmol/L 133-145 [facility] Orthopedic Visit Reporton Orthopedic Visit Report [facility] [address] [place] [address] OFFICE VISIT Date of Service: 04/17/25 MR#: [id number] Acct: [id number] Name: STEVO GERMAIN Rep #: [id number] : 1950 Provider: Dr. 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 Deshaun Salcedo MD 04/17/25 1731. Part of today???s visit was documented by [...] He otherwise denies any injury." Supplemental Info [facility] Services [address] [place], [place] [address] (725) Ankle min 3 Views MR#: [id number] Acct: [id number] Name: STEVO GERMAIN Rep #: [id number] : (more content not included)... Normal [facility] CBC-Complete Blood Cnt No Di ffon 04-16-2025 Erythrocyte distribution width (RBC) [Ratio] 13.2 % Normal 11.6-14.6 [facility] Comment on above: Order Comment: 111 Performed By: #### L 501.9520, L506.0250, L502.0250, L501.5200, L3300.9910, L500.4050, L7400.3000, L503.0105, L503.6150, L503.6550, L503.6075, L100.0100, L506.0400 #### [facility] [address] [facility], [phone] (951) Hematocrit (Bld) [Volume fraction] 29.1 % Low 40-54 [facility] Comment on above: Order Comment: 111 Performed By: #### L 501.9520, L506.0250, L502.0250, L501.5200, L3300.9910, L500.4050, L7400.3000, L503.0105, L503.6150, L503.6550, L503.6075, L100.0100, L506.0400 #### [facility] [address] [facility] [place], [address] Hemoglobin (Bld) [Mass/Vol] 9.8 g/dL Low 13.0-16.5 [facility] Comment on above: Order Comment: 111 Performed By: #### L 501.9520, L506.0250, L502.0250, L501.5200, L3300.9910, L500.4050, L7400.3000, L503.0105, L503.6150, L503.6550, L503.6075, L100.0100, L506.0400 #### [facility] [address] [place], [address] MCH (RBC) [Entitic mass] 32.5 pg High 27.0-32.0 [facility] Comment on above: Order Comment: 111 Performed By: #### L 501.9520, L506.0250, L502.0250, L501.5200, L3300.9910, L500.4050, L7400.3000, L503.0105, L503.6150, L503.6550, L503.6075, L100.0100, L506.0400 #### [facility] [address] [place], [place], [phone] (455) MCHC (RBC) [Mass/Vol] 33.7 g/dL Normal 32-36 [facility] Comment on above: Order Comment: 111 Performed By: #### L 501.9520, L506.0250, L502.0250, L501.5200, L3300.9910, L500.4050, L7400.3000, L503.0105, L503.6150, L503.6550, L503.6075, L100.0100, L506.0400 #### [facility] [address] [place], [place], [phone] (417) MCV (RBC) [Entitic vol] 96.4 fL High 80-94 [facility] Comment on above: Order Comment: 111 Performed By: #### L 501.9520, L506.0250, L502.0250, L501.5200, L3300.9910, L500.4050, L7400.3000, L503.0105, L503.6150, L503.6550, L503.6075, L100.0100, L506.0400 #### [facility] [address] [place], [address] Platelet mean volume (Bld) [Entitic vol] 11.0 fL Normal 6.2-12.0 [facility] Comment on above: Order Comment: 111 Performed By: #### L 501.9520, L506.0250, L502.0250, L501.5200, L3300.9910, L500.4050, L7400.3000, L503.0105, L503.6150, L503.6550, L503.6075, L100.0100, L506.0400 #### [facility] [address] [place], [address] Platelets (Bld) [#/Vol] 302 10*3/uL Normal 150-450 [facility] Comment on above: Order Comment: 111 Performed By: #### L 501.9520, L506.0250, L502.0250, L501.5200, L3300.9910, L500.4050, L7400.3000, L503.0105, L503.6150, L503.6550, L503.6075, L100.0100, L506.0400 #### [facility] [address] [place], [address] RBC (Bld) [#/Vol] 3.02 10*6/uL Low 4.6-6.2 [facility] Comment on above: Order Comment: 111 Performed By: #### L 501.9520, L506.0250, L502.0250, L501.5200, L3300.9910, L500.4050, L7400.3000, L503.0105, L503.6150, L503.6550, L503.6075, L100.0100, L506.0400 #### [facility] [address] [place], [address] RDW SD 46.5 fl High 35.1-43.9 [facility] Comment on above: Order Comment: 111 Performed By: #### L 501.9520, L506.0250, L502.0250, L501.5200, L3300.9910, L500.4050, L7400.3000, L503.0105, L503.6150, L503.6550, L503.6075, L100.0100, L506.0400 #### [facility] [address] [place], [place], [phone] WBC (Bld) [#/Vol] 8.3 10*3/uL Normal 4.4-11.0 [facility] Comment on above: Order Comment: 111 Performed By: #### L 501.9520, L506.0250, L502.0250, L501.5200, L3300.9910, L500.4050, L7400.3000, L503.0105, L503.6150, L503.6550, L503.6075, L100.0100, L506.0400 #### [facility] [address] [facility] [place], [place], [id number] Erythrocyte distribution wid th ratioOrdered By: Manohar Pablo on 04-16-2025 Erythrocyte distribution width (RBC) [Ratio] 13.2 % 11.6-14.6 [facility] Erythrocyte distribution wid th standard deviationOrdered By: Manohar Pablo on 04-16-2025 Erythrocyte distribution width (RBC) [Ratio] 46.5 fl High 35.1-43.9 [facility] Hematocrit Auto (Bld) [Volum e fraction]Ordered By: Manohar Pablo on 04-16-2025 Hematocrit (Bld) [Volume fraction] 29.1 % Low 40-54 [facility] Hemoglobin measurementOrdere d By: Manohar Pablo on 04-16-2025 Hemoglobin (Bld) [Mass/Vol] 9.8 g/dL Low 13.0-16.5 [facility] MCV (mean corpuscular volume ) determinationOrdered By: Manohar Pablo on 04-16-2025 MCV (RBC) [Entitic vol] 96.4 fL High 80-94 [facility] Mean corpuscular hemoglobin (MCH) determinationOrdered By: Manohar Pablo on 04-16-2025 MCH (RBC) [Entitic mass] 32.5 pg High 27.0-32.0 [facility] Mean corpuscular hemoglobin concentration (MCHC) determinationOrdered By: Manohar Pablo on 04-16-2025 MCHC (RBC) [Mass/Vol] 33.7 g/dL 32-36 [facility] Mean platelet volume determi nationOrdered By: aMnohar Pablo on 04-16-2025 Platelet mean volume (Bld) [Entitic vol] 11.0 fL 6.2-12.0 [facility] Platelet countOrdered By: Liane Pablo on 04-16-2025 Platelets (Bld) [#/Vol] 302 10*3/uL 150-450 [facility] RBC Auto (Bld) [#/Vol]Ordere d By: Manohar Pablo on 04-16-2025 RBC (Bld) [#/Vol] 3.02 10*6/uL Low 4.6-6.2 [facility] White blood cell (WBC) count Ordered By: Manohar Pablo on 04-16-2025 WBC (Bld) [#/Vol] 8.3 10*3/uL 4.4-11.0 [facility] Ankle min 3 Viewson 04-10-[address] [facility] [address] [place], [place] [address] Ankle min 3 Views MR#: [id number] Acct: [id number] Name: STEVO GERMAIN Rep #: [id number] : 1950 M 75 From: Bib Mcdowell PCP: PHYLLIS MAE Status: [facility] ER Study: Ankle min 3 Views Date of Exam: 04/10/25 Exam# [id number] Ordering Dr: Rakel Landers PROCEDURE: ANKLE MIN [...] inferior calcaneal spurring is seen. Reading Location: [address] CC: PHYLLIS MAE; ALLAN Marquez Certified Alcohol Counselor: Signed Normal [facility] Emergency Department Summary on 04-10-2025 Emergency Department Summary [facility] Medical Records Department [address] [place] [address] Emergency Department Summary 04/10/25 MR#: [id number] Acct: [id number] Name: STEVO GERMAIN Rep #: [id number] : 1950 75 From: Rakel LEMUS PCP: [...] no fol (more content not included)... Normal [facility] Knee 3 Viewson 04-10-[address] [facility] [address] [place] [address] Knee 3 Views MR#: [id number] Acct: [id number] Name: STEVO GERMAIN Rep #: [id number] : 1950 M 75 From: Morris Pope MD PCP: PHYLLIS MAE Status: REG ER Study: Knee 3 Views Date of Exam: 04/10/25 Exam# [id number] Ordering Dr: Rakel Landers PROCEDURE: KNEE 3 [...] 3. Other findings as noted. Reading Location: [place] [address] CC: PHYLLIS MAE; ALLAN Marquez Certified Alcohol Counselor: Signed Normal [facility] Urinalysis, Completeon 02-24 BACTERIA 0 SEEN Normal None Seen [facility] Comment on above: Order Comment: UNKNO WN METHOD OF COLLECTIONCLEAN CATCH Performed By: #### L 501.0581, L506.0250, L502.0250, L501.5200, L3300.9910, L500.4050, L7400.3000, L503.0105, L503.6150, L503.6550, L503.6075, L100.0100, L506.0400 #### [facility] [address] [place], [place], [id number] EPI,SQUAMOUS 0 SEEN Normal 0-5 [facility] Comment on above: Order Comment: UNKNO WN METHOD OF COLLECTIONCLEAN CATCH Performed By: #### L 501.9520, L506.0250, L502.0250, L501.5200, L3300.9910, L500.4050, L7400.3000, L503.0105, L503.6150, L503.6550, L503.6075, L100.0100, L506.0400 #### [facility] [address] [place], [place], [address] Mucus Ql (Urine sed) 0 SEEN Normal [facility] Comment on above: Order Comment: UNKNO WN METHOD OF COLLECTIONCLEAN CATCH Performed By: #### L 501.9520, L506.0250, L502.0250, L501.5200, L3300.9910, L500.4050, L7400.3000, L503.0105, L503.6150, L503.6550, L503.6075, L100.0100, L506.0400 #### [facility] [address] [place], [place], [address] RBC 0 SEEN Normal 0-5 [facility] Comment on above: Order Comment: UNKNO WN METHOD OF COLLECTIONCLEAN CATCH Performed By: #### L 501.9520, L506.0250, L502.0250, L501.5200, L3300.9910, L500.4050, L7400.3000, L503.0105, L503.6150, L503.6550, L503.6075, L100.0100, L506.0400 #### [facility] [address] [place], [place], [address] WBC 0 SEEN Normal 0-5 [facility] Comment on above: Order Comment: UNKNO WN METHOD OF COLLECTIONCLEAN CATCH Performed By: #### L 501.9520, L506.0250, L502.0250, L501.5200, L3300.9910, L500.4050, L7400.3000, L503.0105, L503.6150, L503.6550, L503.6075, L100.0100, L506.0400 #### [facility] [address] [place], [place], [address] Bilirubin Test strip Ql (U)O rdered By: Sharmila Arteaga on 02-23-2025 Bilirubin Ql (U) Negative Negative [facility] Ketones Test strip Ql (U)Ord ered By: Sharmila Arteaga on 02-23-2025 Ketones Ql (U) Negative Negative [facility] Microscopic analysis of urin e for red blood cells (RBC)Ordered By: Sharmila Arteaga on 02-23-2025 Microscopic analysis of urine for red blood cells (RBC) 0 SEEN /hpf 0-5 [facility] Mucus LM Ql (Urine sed)Order ed By: Sharmila Arteaga on 02-23-2025 Mucus Ql (Urine sed) 0 SEEN /hpf [facility] Nitrite Test strip Ql (U)Ord ered By: Sharmila Arteaga on 02-23-2025 Nitrite Ql (U) Negative Negative [facility] Protein Test strip Ql (U)Ord ered By: Sharmila Arteaga on 02-23-2025 Protein Ql (U) 100 mg/dl High Negative [facility] Squamous epithelial cells de tection in urine sediment by light microscopyOrdered By: Sharmila Arteaga on 02-23-2025 Epithelial cells.squamous LM Ql (Urine sed) 0 SEEN /hpf 0-5 [facility] Urine clarityOrdered By: James Arteaga on 02-23-2025 Clarity (U) Clear Clear [facility] Urine color determinationOrd ered By: Sharmila Arteaga on 02-23-2025 Color (U) Yellow Yellow [facility] Urine glucose detectionOrder ed By: Sharmila Arteaga on 02-23-2025 Glucose Ql (U) 250 mg/dl High Normal [facility] Urine leukocyte esterase det ection by dipstickOrdered By: Sharmila Arteaga on 02-23-2025 Leukocyte esterase Test strip Ql (U) Negative Negative [facility] Urine pHOrdered By: Sharmila Morgan udla on 02-23-2025 pH (U) 6.0 [pH] 5.0 - 8.0 [facility] Urine sediment bacteria coun t by microscopy (number/high power field)Ordered By: Sharmila Arteaga on 02-23-2025 Bacteria LM.HPF (Urine sed) [#/Area] 0 /[HPF] None Seen [facility] Urine specific gravity measu rementOrdered By: Sharmila Arteaga on 02-23-2025 Specific gravity (U) [Rel density] 1.015 1.002-1.030 [facility] Urine urobilinogen measureme ntOrdered By: Sharmila Arteaga on 02-23-2025 Urobilinogen Ql (U) Normal mg/dl Normal [facility] White blood cell countOrdere d By: Sharmila Arteaga on 02-23-2025 White blood cell count 0 SEEN /hpf 0-5 [facility] Anion gap in Serum or Plasma Ordered By: Manohar Pablo on 02-19-2025 Anion gap [Moles/Vol] 11 mmol/L 5-15 [facility] BUN/creatinine ratioOrdered By: Manohar Pablo on 02-19-2025 Urea nitrogen/Creatinine [Mass ratio] 19.4 mg/mg 10-20 [facility] CBC-Complete Blood Cnt No Di ffon 02-19-2025 Erythrocyte distribution width (RBC) [Ratio] 12.7 % Normal 11.6-14.6 [facility] Comment on above: Performed By: #### L 501.9520, L506.0250, L502.0250, L501.5200, L3300.9910, L500.4050, L7400.3000, L503.0105, L503.6150, L503.6550, L503.6075, L100.0100, L506.0400 #### [facility] [address] [place], [address] Hematocrit (Bld) [Volume fraction] 26.7 % Low 40-54 [facility] Comment on above: Performed By: #### L 501.9520, L506.0250, L502.0250, L501.5200, L3300.9910, L500.4050, L7400.3000, L503.0105, L503.6150, L503.6550, L503.6075, L100.0100, L506.0400 #### [facility] [address] [facility] [place], [address] Hemoglobin (Bld) [Mass/Vol] 9.2 g/dL Low 13.0-16.5 [facility] Comment on above: Performed By: #### L 501.9520, L506.0250, L502.0250, L501.5200, L3300.9910, L500.4050, L7400.3000, L503.0105, L503.6150, L503.6550, L503.6075, L100.0100, L506.0400 #### [facility] [address] [facility] [place], [address] MCH (RBC) [Entitic mass] 33.1 pg High 27.0-32.0 [facility] Comment on above: Performed By: #### L 501.9520, L506.0250, L502.0250, L501.5200, L3300.9910, L500.4050, L7400.3000, L503.0105, L503.6150, L503.6550, L503.6075, L100.0100, L506.0400 #### [facility] [address] [place], [address] MCHC (RBC) [Mass/Vol] 34.5 g/dL Normal 32-36 [facility] Comment on above: Performed By: #### L 501.9520, L506.0250, L502.0250, L501.5200, L3300.9910, L500.4050, L7400.3000, L503.0105, L503.6150, L503.6550, L503.6075, L100.0100, L506.0400 #### [facility] [address] [place], [address] MCV (RBC) [Entitic vol] 96.0 fL High 80-94 [facility] Comment on above: Performed By: #### L 501.9520, L506.0250, L502.0250, L501.5200, L3300.9910, L500.4050, L7400.3000, L503.0105, L503.6150, L503.6550, L503.6075, L100.0100, L506.0400 #### [facility] [address] [place], [address] Platelet mean volume (Bld) [Entitic vol] 11.7 fL Normal 6.2-12.0 [facility] Comment on above: Performed By: #### L 501.9520, L506.0250, L502.0250, L501.5200, L3300.9910, L500.4050, L7400.3000, L503.0105, L503.6150, L503.6550, L503.6075, L100.0100, L506.0400 #### [facility] [address] [place], [address] Platelets (Bld) [#/Vol] 253 10*3/uL Normal 150-450 [facility] Comment on above: Performed By: #### L 501.9520, L506.0250, L502.0250, L501.5200, L3300.9910, L500.4050, L7400.3000, L503.0105, L503.6150, L503.6550, L503.6075, L100.0100, L506.0400 #### [facility] [address] [place], [address] RBC (Bld) [#/Vol] 2.78 10*6/uL Low 4.6-6.2 [facility] Comment on above: Performed By: #### L 501.9520, L506.0250, L502.0250, L501.5200, L3300.9910, L500.4050, L7400.3000, L503.0105, L503.6150, L503.6550, L503.6075, L100.0100, L506.0400 #### [facility] [address] [place], [address] RDW SD 44.9 fl High 35.1-43.9 [facility] Comment on above: Performed By: #### L 501.9520, L506.0250, L502.0250, L501.5200, L3300.9910, L500.4050, L7400.3000, L503.0105, L503.6150, L503.6550, L503.6075, L100.0100, L506.0400 #### [facility] [address] [place], [place], [phone] (579) WBC (Bld) [#/Vol] 8.5 10*3/uL Normal 4.4-11.0 [facility] Comment on above: Performed By: #### L 501.9520, L506.0250, L502.0250, L501.5200, L3300.9910, L500.4050, L7400.3000, L503.0105, L503.6150, L503.6550, L503.6075, L100.0100, L506.0400 #### [facility] [address] [place], [place], [phone] (652) Carbon dioxide, total [Moles /volume] in Central venous bloodOrdered By: Manohar Palbo on 02-19-2025 CO2 [Moles/Vol] 19.7 mmol/L Low 21.0-32.0 [facility] Chloride assayOrdered By: Liane Pablo on 02-19-2025 Chloride [Moles/Vol] 100 mmol/L 98-108 [facility] Erythrocyte distribution wid th ratioOrdered By: Manohar Pablo on 02-19-2025 Erythrocyte distribution width (RBC) [Ratio] 12.7 % 11.6-14.6 [facility] Erythrocyte distribution wid th standard deviationOrdered By: Manohar Pablo on 02-19-2025 Erythrocyte distribution width (RBC) [Ratio] 44.9 fl High 35.1-43.9 [facility] Glomerular filtration rate ( GFR) estimation/1.73 sq m using serum, plasma, or whole bOrdered By: Manohar Pablo on 02-19-2025 GFR/1.73 sq M.predicted among non-blacks MDRD (S/P/Bld) [Vol rate/Area] 39 mL/min/{1.73_m2} Low >60 [facility] Comment on above: mL/min/1.73m2 CKD-EP I Creatinine Equation (2020) Hematocrit Auto (Bld) [Volum e fraction]Ordered By: Manohar Pablo on 02-19-2025 Hematocrit (Bld) [Volume fraction] 26.7 % Low 40-54 [facility] Hemoglobin measurementOrdere d By: Manohar Pablo on 02-19-2025 Hemoglobin (Bld) [Mass/Vol] 9.2 g/dL Low 13.0-16.5 [facility] MCV (mean corpuscular volume ) determinationOrdered By: Manohar Pablo on 02-19-2025 MCV (RBC) [Entitic vol] 96.0 fL High 80-94 [facility] Mean corpuscular hemoglobin (MCH) determinationOrdered By: Manohar Pablo 02-19-2025 MCH (RBC) [Entitic mass] 33.1 pg High 27.0-32.0 [facility] Mean corpuscular hemoglobin concentration (MCHC) determinationOrdered By: Manohar Pablo 02-19-2025 MCHC (RBC) [Mass/Vol] 34.5 g/dL 32-36 [facility] Mean platelet volume determi nationOrdered By: Manohar Pablo on 02-19-2025 Platelet mean volume (Bld) [Entitic vol] 11.7 fL 6.2-12.0 [facility] Platelet countOrdered By: Liane Pablo on 02-19-2025 Platelets (Bld) [#/Vol] 253 10*3/uL 150-450 [facility] Potassium measurement (mass/ volume)Ordered By: Manohar Pablo on 02-19-2025 Potassium (Unsp spec) [Mass/Vol] 4.3 mmol/L 3.3-5.1 [facility] RBC Auto (Bld) [#/Vol]Ordere d By: Manohar Pablo on 02-19-2025 RBC (Bld) [#/Vol] 2.78 10*6/uL Low 4.6-6.2 [facility] Renal Profileon 02-19-2025 Albumin [Mass/Vol] 3.1 g/dL Low 3.4-4.8 [facility] Comment on above: Performed By: #### L [id number], L506.0250, L502.0250, L501.5200, L3300.9910, L500.4050, L7400.3000, L503.0105, L503.6150, L503.6550, L503.6075, L100.0100, L506.0400 #### [facility] [address] [place], [place], [id number] BUN/CRE 19.4 RATIO Normal 10-20 [facility] Comment on above: Performed By: #### L [id number], L506.0250, L502.0250, L501.5200, L3300.9910, L500.4050, L7400.3000, L503.0105, L503.6150, L503.6550, L503.6075, L100.0100, L506.0400 #### [facility] [address] [place], [place], [id number] Calcium [Mass/Vol] 8.7 mg/dL Normal 7.6-11.0 [facility] Comment on above: Performed By: #### L 501.9520, L506.0250, L502.0250, L501.5200, L3300.9910, L500.4050, L7400.3000, L503.0105, L503.6150, L503.6550, L503.6075, L100.0100, L506.0400 #### [facility] [address] [place], [address] Chloride [Moles/Vol] 100 mmol/L Normal 98-108 [facility] Comment on above: Performed By: #### L 501.9520, L506.0250, L502.0250, L501.5200, L3300.9910, L500.4050, L7400.3000, L503.0105, L503.6150, L503.6550, L503.6075, L100.0100, L506.0400 #### [facility] [address] [place], [address] CO2 [Moles/Vol] 19.7 mmol/L Low 21.0-32.0 [facility] Comment on above: Performed By: #### L 501.9520, L506.0250, L502.0250, L501.5200, L3300.9910, L500.4050, L7400.3000, L503.0105, L503.6150, L503.6550, L503.6075, L100.0100, L506.0400 #### [facility] [address] [place], [address] Creatinine [Mass/Vol] 1.78 mg/dL High 0.70-1.20 [facility] Comment on above: Performed By: #### L 501.9520, L506.0250, L502.0250, L501.5200, L3300.9910, L500.4050, L7400.3000, L503.0105, L503.6150, L503.6550, L503.6075, L100.0100, L506.0400 #### [facility] [address] [place], [place], [id number] GAP 11 Normal 5-15 [facility] Comment on above: Performed By: #### L 501.9520, L506.0250, L502.0250, L501.5200, L3300.9910, L500.4050, L7400.3000, L503.0105, L503.6150, L503.6550, L503.6075, L100.0100, L506.0400 #### [facility] [address] [place], [address] GFR/1.73 sq M.predicted among non-blacks MDRD (S/P/Bld) [Vol rate/Area] 39 mL/min/{1.73_m2} Low >60 [facility] Comment on above: Result Comment: mL/m in/1.73m2 CKD-EPI Creatinine Equation (2020) Performed By: #### L 501.9520, L506.0250, L502.0250, L501.5200, L3300.9910, L500.4050, L7400.3000, L503.0105, L503.6150, L503.6550, L503.6075, L100.0100, L506.0400 #### [facility] [address] [place], [place], [id number] Glucose [Mass/Vol] 324 mg/dL High 70-99 [facility] Comment on above: Performed By: #### L 501.9520, L506.0250, L502.0250, L501.5200, L3300.9910, L500.4050, L7400.3000, L503.0105, L503.6150, L503.6550, L503.6075, L100.0100, L506.0400 #### [facility] [address] [place], [address] Phosphate [Mass/Vol] 3.1 mg/dL Normal 2.7-4.5 [facility] Comment on above: Performed By: #### L 501.9520, L506.0250, L502.0250, L501.5200, L3300.9910, L500.4050, L7400.3000, L503.0105, L503.6150, L503.6550, L503.6075, L100.0100, L506.0400 #### [facility] [address] [place], [address] Potassium [Moles/Vol] 4.3 mmol/L Normal 3.3-5.1 [facility] Comment on above: Performed By: #### L 501.9520, L506.0250, L502.0250, L501.5200, L3300.9910, L500.4050, L7400.3000, L503.0105, L503.6150, L503.6550, L503.6075, L100.0100, L506.0400 #### [facility] [address] [place], [address] Sodium [Moles/Vol] 131 mmol/L Low 133-145 [facility] Comment on above: Performed By: #### L 501.9520, L506.0250, L502.0250, L501.5200, L3300.9910, L500.4050, L7400.3000, L503.0105, L503.6150, L503.6550, L503.6075, L100.0100, L506.0400 #### [facility] [address] [place], [address] Urea nitrogen [Mass/Vol] 35 mg/dL High 4-19 [facility] Comment on above: Performed By: #### L 501.9520, L506.0250, L502.0250, L501.5200, L3300.9910, L500.4050, L7400.3000, L503.0105, L503.6150, L503.6550, L503.6075, L100.0100, L506.0400 #### [facility] [place], [address] Serum creatinine measurement (mass/volume)Ordered By: Manohar Pablo on 02-19-2025 Creatinine [Mass/Vol] 1.78 mg/dL High 0.70-1.20 [facility] Serum glucose measurement (m ass/volume)Ordered By: Manohar Pablo on 02-19-2025 Glucose [Mass/Vol] 324 mg/dL High 70-99 [facility] Serum or plasma albumin quynh urement (mass/volume)Ordered By: Manohar Pablo on 02-19-2025 Albumin [Mass/Vol] 3.1 g/dL Low 3.4-4.8 [facility] Serum or plasma calcium quynh urement (mass/volume)Ordered By: Manohar Pablo on 02-19-2025 Calcium [Mass/Vol] 8.7 mg/dL 7.6-11.0 [facility] Serum or plasma urea nitroge n measurement (mass/volume)Ordered By: Manohar Pablo on 02-19-2025 Urea nitrogen [Mass/Vol] 35 mg/dL High 4-19 [facility] Sodium levelOrdered By: Caity Pablo on 02-19-2025 Sodium [Moles/Vol] 131 mmol/L Low 133-145 [facility] White blood cell (WBC) count Ordered By: Manohar Pablo on 02-19-2025 WBC (Bld) [#/Vol] 8.5 10*3/uL 4.4-11.0 [facility] Anion gap in Serum or Plasma Ordered By: Sharmila Arteaga on 01-27-2025 Anion gap [Moles/Vol] 12 mmol/L 5-15 [facility] BUN/creatinine ratioOrdered By: Sharmila Arteaga on 01-27-2025 Urea nitrogen/Creatinine [Mass ratio] 18.5 mg/mg 10-20 [facility] Bilirubin, totalOrdered By: Sharmila Arteaga on 01-27-2025 Bilirubin [Mass/Vol] mg/dL 0.00-1.30 [facility] CBC-Complete Blood Cnt No Di ffon 01-27-2025 Erythrocyte distribution width (RBC) [Ratio] 13.4 % Normal 11.6-14.6 [facility] Comment on above: Order Comment: 111 Performed By: #### L 501.9520, L506.0250, L502.0250, L501.5200, L3300.9910, L500.4050, L7400.3000, L503.0105, L503.6150, L503.6550, L503.6075, L100.0100, L506.0400 #### [facility] [address] [place], [address] Hematocrit (Bld) [Volume fraction] 31.4 % Low 40-54 [facility] Comment on above: Order Comment: 111 Performed By: #### L 501.9520, L506.0250, L502.0250, L501.5200, L3300.9910, L500.4050, L7400.3000, L503.0105, L503.6150, L503.6550, L503.6075, L100.0100, L506.0400 #### [facility] [address] [place], [address] Hemoglobin (Bld) [Mass/Vol] 10.7 g/dL Low 13.0-16.5 [facility] Comment on above: Order Comment: 111 Performed By: #### L 501.9520, L506.0250, L502.0250, L501.5200, L3300.9910, L500.4050, L7400.3000, L503.0105, L503.6150, L503.6550, L503.6075, L100.0100, L506.0400 #### [facility] [address] [place], [address] MCH (RBC) [Entitic mass] 33.2 pg High 27.0-32.0 [facility] Comment on above: Order Comment: 111 Performed By: #### L 501.9520, L506.0250, L502.0250, L501.5200, L3300.9910, L500.4050, L7400.3000, L503.0105, L503.6150, L503.6550, L503.6075, L100.0100, L506.0400 #### [facility] [address] [place], [address] MCHC (RBC) [Mass/Vol] 34.1 g/dL Normal 32-36 [facility] Comment on above: Order Comment: 111 Performed By: #### L 501.9520, L506.0250, L502.0250, L501.5200, L3300.9910, L500.4050, L7400.3000, L503.0105, L503.6150, L503.6550, L503.6075, L100.0100, L506.0400 #### [facility] [address] [place], [address] MCV (RBC) [Entitic vol] 97.5 fL High 80-94 [facility] Comment on above: Order Comment: 111 Performed By: #### L 501.9520, L506.0250, L502.0250, L501.5200, L3300.9910, L500.4050, L7400.3000, L503.0105, L503.6150, L503.6550, L503.6075, L100.0100, L506.0400 #### [facility] [address] [place], [address] Platelet mean volume (Bld) [Entitic vol] 11.5 fL Normal 6.2-12.0 [facility] Comment on above: Order Comment: 111 Performed By: #### L 501.9520, L506.0250, L502.0250, L501.5200, L3300.9910, L500.4050, L7400.3000, L503.0105, L503.6150, L503.6550, L503.6075, L100.0100, L506.0400 #### [facility] [address] [place], [address] Platelets (Bld) [#/Vol] 339 10*3/uL Normal 150-450 [facility] Comment on above: Order Comment: 111 Performed By: #### L 501.9520, L506.0250, L502.0250, L501.5200, L3300.9910, L500.4050, L7400.3000, L503.0105, L503.6150, L503.6550, L503.6075, L100.0100, L506.0400 #### [facility] [address] [place], [place], [address] (369) RBC (Bld) [#/Vol] 3.22 10*6/uL Low 4.6-6.2 [facility] Comment on above: Order Comment: 111 Performed By: #### L 501.9520, L506.0250, L502.0250, L501.5200, L3300.9910, L500.4050, L7400.3000, L503.0105, L503.6150, L503.6550, L503.6075, L100.0100, L506.0400 #### [facility] [address] [place], [place], [address] (339) RDW SD 47.8 fl High 35.1-43.9 [facility] Comment on above: Order Comment: 111 Performed By: #### L 501.9520, L506.0250, L502.0250, L501.5200, L3300.9910, L500.4050, L7400.3000, L503.0105, L503.6150, L503.6550, L503.6075, L100.0100, L506.0400 #### [facility] [address] [place], [place], [id number] WBC (Bld) [#/Vol] 7.4 10*3/uL Normal 4.4-11.0 [facility] Comment on above: Order Comment: 111 Performed By: #### L 501.9520, L506.0250, L502.0250, L501.5200, L3300.9910, L500.4050, L7400.3000, L503.0105, L503.6150, L503.6550, L503.6075, L100.0100, L506.0400 #### [facility] [address] [place], [address] Calculated very low density lipoprotein (VLDL) cholesterol measurementOrdered By: Sharmila Arteaga on 01-27-2025 Calculated very low density lipoprotein (VLDL) cholesterol measurement 51 mg/dL High 5-40 [facility] VLDL Cholesterol 51 mg/dL High 5-40 [facility] Carbon dioxide, total [Moles /volume] in Central venous bloodOrdered By: Sharmila Arteaga on 01-27-2025 CO2 [Moles/Vol] 17.6 mmol/L Low 21.0-32.0 [facility] Chloride assayOrdered By: Boom Arteaga on 01-27-2025 Chloride [Moles/Vol] 105 mmol/L 98-108 [facility] Comprehensive Metabolic Prof ilon 01-27-2025 Albumin [Mass/Vol] 3.5 g/dL Normal 3.4-4.8 [facility] Comment on above: Order Comment: 111 Performed By: #### L 501.9520, L506.0250, L502.0250, L501.5200, L3300.9910, L500.4050, L7400.3000, L503.0105, L503.6150, L503.6550, L503.6075, L100.0100, L506.0400 #### [facility] [address] [place], [place], [id number] Albumin/Globulin [Mass ratio] 1.3 {ratio} Normal 0.9-2.4 [facility] Comment on above: Order Comment: 111 Performed By: #### L 501.9520, L506.0250, L502.0250, L501.5200, L3300.9910, L500.4050, L7400.3000, L503.0105, L503.6150, L503.6550, L503.6075, L100.0100, L506.0400 #### [facility] [address] [place], [place], [id number] ALK PHOS 44 U/L Normal 40-129 [facility] Comment on above: Order Comment: 111 Performed By: #### L 501.9520, L506.0250, L502.0250, L501.5200, L3300.9910, L500.4050, L7400.3000, L503.0105, L503.6150, L503.6550, L503.6075, L100.0100, L506.0400 #### [facility] [address] [place], [place], [address] ALT [Catalytic activity/Vol] 17 U/L Normal <=46 [facility] Comment on above: Order Comment: 111 Performed By: #### L 501.9520, L506.0250, L502.0250, L501.5200, L3300.9910, L500.4050, L7400.3000, L503.0105, L503.6150, L503.6550, L503.6075, L100.0100, L506.0400 #### [facility] [address] [place], [place], [phone] (447) AST [Catalytic activity/Vol] 20 U/L Normal <=37 [facility] Comment on above: Order Comment: 111 Performed By: #### L 501.9520, L506.0250, L502.0250, L501.5200, L3300.9910, L500.4050, L7400.3000, L503.0105, L503.6150, L503.6550, L503.6075, L100.0100, L506.0400 #### [facility] [address] [place], [address] BUN/CRE 18.5 RATIO Normal 10-20 [facility] Comment on above: Order Comment: 111 Performed By: #### L 501.9520, L506.0250, L502.0250, L501.5200, L3300.9910, L500.4050, L7400.3000, L503.0105, L503.6150, L503.6550, L503.6075, L100.0100, L506.0400 #### [facility] [address] [place], [address] Calcium [Mass/Vol] 9.5 mg/dL Normal 7.6-11.0 [facility] Comment on above: Order Comment: 111 Performed By: #### L 501.9520, L506.0250, L502.0250, L501.5200, L3300.9910, L500.4050, L7400.3000, L503.0105, L503.6150, L503.6550, L503.6075, L100.0100, L506.0400 #### [facility] [address] [place], [address] Chloride [Moles/Vol] 105 mmol/L Normal 98-108 [facility] Comment on above: Order Comment: 111 Performed By: #### L 501.9520, L506.0250, L502.0250, L501.5200, L3300.9910, L500.4050, L7400.3000, L503.0105, L503.6150, L503.6550, L503.6075, L100.0100, L506.0400 #### [facility] [address] [place], [address] CO2 [Moles/Vol] 17.6 mmol/L Low 21.0-32.0 [facility] Comment on above: Order Comment: 111 Performed By: #### L 501.9520, L506.0250, L502.0250, L501.5200, L3300.9910, L500.4050, L7400.3000, L503.0105, L503.6150, L503.6550, L503.6075, L100.0100, L506.0400 #### [facility] [address] [place], [place], [id number] Creatinine [Mass/Vol] 2.20 mg/dL High 0.70-1.20 [facility] Comment on above: Order Comment: 111 Performed By: #### L 501.9520, L506.0250, L502.0250, L501.5200, L3300.9910, L500.4050, L7400.3000, L503.0105, L503.6150, L503.6550, L503.6075, L100.0100, L506.0400 #### [facility] [address] [place], [address] GAP 12 Normal 5-15 [facility] Comment on above: Order Comment: 111 Performed By: #### L 501.9520, L506.0250, L502.0250, L501.5200, L3300.9910, L500.4050, L7400.3000, L503.0105, L503.6150, L503.6550, L503.6075, L100.0100, L506.0400 #### [facility] [address] [place], [place], [id number] GFR/1.73 sq M.predicted among non-blacks MDRD (S/P/Bld) [Vol rate/Area] 30 mL/min/{1.73_m2} Low >60 [facility] Comment on above: Order Comment: 111 Result Comment: mL/m in/1.73m2 CKD-EPI Creatinine Equation (2020) Performed By: #### L 501.9520, L506.0250, L502.0250, L501.5200, L3300.9910, L500.4050, L7400.3000, L503.0105, L503.6150, L503.6550, L503.6075, L100.0100, L506.0400 #### [facility] [address] [place], [address] Globulin (S) [Mass/Vol] 2.7 g/dL Normal 2.2-4.2 [facility] Comment on above: Order Comment: 111 Performed By: #### L 501.9520, L506.0250, L502.0250, L501.5200, L3300.9910, L500.4050, L7400.3000, L503.0105, L503.6150, L503.6550, L503.6075, L100.0100, L506.0400 #### [facility] [address] [place], [address] Glucose [Mass/Vol] 258 mg/dL High 70-99 [facility] Comment on above: Order Comment: 111 Performed By: #### L 501.9520, L506.0250, L502.0250, L501.5200, L3300.9910, L500.4050, L7400.3000, L503.0105, L503.6150, L503.6550, L503.6075, L100.0100, L506.0400 #### [facility] [address] [place], [address] Potassium [Moles/Vol] 5.1 mmol/L Normal 3.3-5.1 [facility] Comment on above: Order Comment: 111 Performed By: #### L 501.9520, L506.0250, L502.0250, L501.5200, L3300.9910, L500.4050, L7400.3000, L503.0105, L503.6150, L503.6550, L503.6075, L100.0100, L506.0400 #### [facility] [address] [place], [address] Sodium [Moles/Vol] 135 mmol/L Normal 133-145 [facility] Comment on above: Order Comment: 111 Performed By: #### L 501.9520, L506.0250, L502.0250, L501.5200, L3300.9910, L500.4050, L7400.3000, L503.0105, L503.6150, L503.6550, L503.6075, L100.0100, L506.0400 #### [facility] [address] [place], [address] T BILI < 0.15 Normal 0.00-1.30 [facility] Comment on above: Order Comment: 111 Performed By: #### L 501.9520, L506.0250, L502.0250, L501.5200, L3300.9910, L500.4050, L7400.3000, L503.0105, L503.6150, L503.6550, L503.6075, L100.0100, L506.0400 #### [facility] [address] [place], [address] T PROT 6.3 g/dL Normal 5.9-8.4 [facility] Comment on above: Order Comment: 111 Performed By: #### L 501.9520, L506.0250, L502.0250, L501.5200, L3300.9910, L500.4050, L7400.3000, L503.0105, L503.6150, L503.6550, L503.6075, L100.0100, L506.0400 #### [facility] [address] [place], [address] Urea nitrogen [Mass/Vol] 41 mg/dL High 4-19 [facility] Comment on above: Order Comment: 111 Performed By: #### L 501.9520, L506.0250, L502.0250, L501.5200, L3300.9910, L500.4050, L7400.3000, L503.0105, L503.6150, L503.6550, L503.6075, L100.0100, L506.0400 #### [facility] [place], [address] Erythrocyte distribution wid th (RBC) [Ratio]Ordered By: Sharmila Arteaga on 01-27-2025 Erythrocyte distribution width (RBC) [Entitic vol] 47.8 fL High 35.1-43.9 [facility] Erythrocyte distribution wid th ratioOrdered By: Sharmila Arteaga on 01-27-2025 Erythrocyte distribution width (RBC) [Ratio] 13.4 % 11.6-14.6 [facility] Erythrocyte distribution wid th standard deviationOrdered By: Sharmila Arteaga on 01-27-2025 Erythrocyte distribution width (RBC) [Ratio] 47.8 fl High 35.1-43.9 [facility] GFR/1.73 sq M.predicted roxann g non-blacks MDRD (S/P/Bld) [Vol rate/Area]Ordered By: Sharmila Arteaga on 01-27-2025 Estimated GFR (MDRD) Non-Af Amer 30 Low >60 [facility] Comment on above: mL/min/1.73m2 CKD-EP I Creatinine Equation (2020) Glomerular filtration rate ( GFR) estimation/1.73 sq m using serum, plasma, or whole bOrdered By: Sharmila Arteaga on 01-27-2025 GFR/1.73 sq M.predicted among non-blacks MDRD (S/P/Bld) [Vol rate/Area] 30 mL/min/{1.73_m2} Low >60 [facility] Comment on above: mL/min/1.73m2 CKD-EP I Creatinine Equation (2020) Hematocrit Auto (Bld) [Volum e fraction]Ordered By: Sharmila Arteaga on 01-27-2025 Hematocrit (Bld) [Volume fraction] 31.4 % Low 40-54 [facility] Hemoglobin A1con 01-27-2025 HbA1c (Bld) [Mass fraction] 7.7 % Normal <=5.6 [facility] Comment on above: Order Comment: 111 Performed By: #### L 501.9520, L506.0250, L502.0250, L501.5200, L3300.9910, L500.4050, L7400.3000, L503.0105, L503.6150, L503.6550, L503.6075, L100.0100, L506.0400 #### [facility] [address] [place], [place], [id number] Hemoglobin A1c percentageOrd ered By: Sharmila Arteaga on 01-27-2025 HbA1c (Bld) [Mass fraction] 7.7 % >5.7 [facility] Hemoglobin measurementOrdere d By: Sharmila Arteaga on 01-27-2025 Hemoglobin (Bld) [Mass/Vol] 10.7 g/dL Low 13.0-16.5 [facility] L503.0106on 01-27-2025 Cobalamin (Vitamin B12) [Mass/Vol] 536 pg/mL Normal 180-914 [facility] Comment on above: Order Comment: 111 Performed By: #### L 501.9520, L506.0250, L502.0250, L501.5200, L3300.9910, L500.4050, L7400.3000, L503.0105, L503.6150, L503.6550, L503.6075, L100.0100, L506.0400 #### [facility] [address] [place], [address] L506.1001on 01-27-2025 Vitamin D 25-OH 14.8 ng/mL Low 30-100 [facility] Comment on above: Order Comment: 111 Result Comment: Celina min D Status Deficiency: <20 ng/mL (50nmol/L) Insufficiency: 20-30 ng/mL (50-75 nmol/L) Sufficiency: 30-100 ng/mL (75-250 nmol/L) Toxicity: >100 ng/mL (>250 nmol/L) Performed By: #### L 501.9520, L506.0250, L502.0250, L501.5200, L3300.9910, L500.4050, L7400.3000, L503.0105, L503.6150, L503.6550, L503.6075, L100.0100, L506.0400 #### [facility] [address] [place], [place], [id number] LDL calc ser/plasOrdered By: Sharmila Arteaga on 01-27-2025 Cholesterol in LDL [Mass/Vol] 37 mg/dL [facility] Comment on above: Mgvvzjqjdd=210-282 m g/dL & Higher Ksil=952 mg/dL or greater LDL Cholesterol, Calculated 37 mg/dL [facility] Comment on above: Duzrovuxgt=560-368 m g/dL & Higher Gisy=764 mg/dL or greater Laboratory - Chemistry and C hemistry - challengeOrdered By: Sharmila Arteaga on 01-27-2025 AST [Catalytic activity/Vol] 20 U/L <38 [facility] Lipid Profileon 01-27-2025 CHOL:HDL 4.11 Normal [facility] Comment on above: Order Comment: 111 Performed By: #### L 501.9520, L506.0250, L502.0250, L501.5200, L3300.9910, L500.4050, L7400.3000, L503.0105, L503.6150, L503.6550, L503.6075, L100.0100, L506.0400 #### [facility] [address] [place], [address] Cholesterol [Mass/Vol] 116 mg/dL Normal <=200 [facility] Comment on above: Order Comment: 111 Result Comment: Chol esterol level, Desirable <200 mg/dL Borderline high cholesterol 200-239 mg/dL High cholesterol >=240 mg/dL Recommendations of the NCEP Adult Treatment Panel for the following risk-cutoff thresholds for the [place] population. Performed By: #### L 501.9520, L506.0250, L502.0250, L501.5200, L3300.9910, L500.4050, L7400.3000, L503.0105, L503.6150, L503.6550, L503.6075, L100.0100, L506.0400 #### [facility] [address] [place], [place], [id number] (638) Cholesterol in HDL [Mass/Vol] 28 mg/dL Low [facility] Comment on above: Order Comment: 111 [...] L503.0105, L503.6150, L503.6550, L503.6075, L100.0100, L506.0400 #### [facility] [address] [place], [place], [phone] (175) Cholesterol in LDL [Mass/Vol] 37 mg/dL Normal [facility] Comment on above: Order Comment: 111 Result Comment: Bord kptohc=521-909 mg/dL Higher Uqnn=340 mg/dL or greater Performed By: #### L 501.9520, L506.0250, L502.0250, L501.5200, L3300.9910, L500.4050, L7400.3000, L503.0105, L503.6150, L503.6550, L503.6075, L100.0100, L506.0400 #### [facility] [address] [place], [place], [id number] (186) Cholesterol in VLDL [Mass/Vol] 51 mg/dL High 5-40 [facility] Comment on above: Order Comment: 111 Performed By: #### L 501.9520, L506.0250, L502.0250, L501.5200, L3300.9910, L500.4050, L7400.3000, L503.0105, L503.6150, L503.6550, L503.6075, L100.0100, L506.0400 #### [facility] [address] [facility]. [place], [place], [id number] Triglyceride [Mass/Vol] 255 mg/dL High [facility] Comment on above: Order Comment: 111 Result Comment: The drugs N-Acetylcysteine and Metamizole may falsely depress this assay. Normal range: <150 mg/dL Borderline High: 150-199 mg/dL High: 200-499 mg/dL Very High: >500 mg/dL Performed By: #### L 501.9520, L506.0250, L502.0250, L501.5200, L3300.9910, L500.4050, L7400.3000, L503.0105, L503.6150, L503.6550, L503.6075, L100.0100, L506.0400 #### [facility] [address] [facility] [place], [place], [id number] MCV (mean corpuscular volume ) determinationOrdered By: Sharmila Arteaga on 01-27-2025 MCV (RBC) [Entitic vol] 97.5 fL High 80-94 [facility] Magnesiumon 01-27-2025 Magnesium [Mass/Vol] 1.7 mg/dL Normal 1.5-2.2 [facility] Comment on above: Order Comment: 111 Performed By: #### L 501.9520, L506.0250, L502.0250, L501.5200, L3300.9910, L500.4050, L7400.3000, L503.0105, L503.6150, L503.6550, L503.6075, L100.0100, L506.0400 #### [facility] [place], [address] Magnesium (Unsp spec) [Mass/ Vol]Ordered By: Sharmila Arteaga on 01-27-2025 Magnesium [Mass/Vol] 1.7 mg/dL 1.5-2.2 [facility] Magnesium measurement (mass/ volume)Ordered By: Sharmila Arteaga on 01-27-2025 Magnesium (Unsp spec) [Mass/Vol] 1.7 mg/dL 1.5-2.2 [facility] Mean corpuscular hemoglobin (MCH) determinationOrdered By: Sharmila Arteaga on 01-27-2025 MCH (RBC) [Entitic mass] 33.2 pg High 27.0-32.0 [facility] Mean corpuscular hemoglobin concentration (MCHC) determinationOrdered By: Sharmila Arteaga on 01-27-2025 MCHC (RBC) [Mass/Vol] 34.1 g/dL 32-36 [facility] Mean platelet volume determi nationOrdered By: Sharmila Arteaga on 01-27-2025 Platelet mean volume (Bld) [Entitic vol] 11.5 fL 6.2-12.0 [facility] Platelet countOrdered By: Boom Arteaga on 01-27-2025 Platelets (Bld) [#/Vol] 339 10*3/uL 150-450 [facility] Potassium (Unsp spec) [Mass/ Vol]Ordered By: Sharmila Arteaga on 01-27-2025 Potassium [Moles/Vol] 5.1 mmol/L 3.3-5.1 [facility] Potassium measurement (mass/ volume)Ordered By: Sharmila Arteaga on 01-27-2025 Potassium (Unsp spec) [Mass/Vol] 5.1 mmol/L 3.3-5.1 [facility] RBC Auto (Bld) [#/Vol]Ordere d By: Sharmila Arteaga on 01-27-2025 RBC (Bld) [#/Vol] 3.22 10*6/uL Low 4.6-6.2 [facility] Screening total cholesterol/ high density lipoprotein (HDL) cholesterol ratioOrdered By: Sharmila Arteaga on 01-27-2025 Cholesterol.total/Caren sterol in HDL [Mass ratio] 4.11 {ratio} [facility] Serum creatinine measurement (mass/volume)Ordered By: Sharmila Arteaga on 01-27-2025 Creatinine [Mass/Vol] 2.20 mg/dL High 0.70-1.20 [facility] Serum globulin measurementOr dered By: Sharmila Arteaga on 01-27-2025 Globulin (S) [Mass/Vol] 2.7 g/dL 2.2-4.2 [facility] Serum glucose measurement (m ass/volume)Ordered By: Sharmila Arteaga on 01-27-2025 Glucose [Mass/Vol] 258 mg/dL High 70-99 [facility] Serum or plasma alanine hutson otransferase (ALT) measurementOrdered By: Sharmila Arteaga on 01-27-2025 ALT [Catalytic activity/Vol] 17 U/L <47 [facility] Serum or plasma albumin quynh urement (mass/volume)Ordered By: Sharmila Arteaga on 01-27-2025 Albumin [Mass/Vol] 3.5 g/dL 3.4-4.8 [facility] Serum or plasma albumin/glob ulin mass ratioOrdered By: Sharmila Arteaga on 01-27-2025 Albumin/Globulin [Mass ratio] 1.3 {ratio} 0.9-2.4 [facility] Serum or plasma alkaline charito sphatase measurementOrdered By: Sharmila Arteaga on 01-27-2025 ALP [Catalytic activity/Vol] 44 U/L 40-129 [facility] Serum or plasma calcium quynh urement (mass/volume)Ordered By: Sharmila Arteaga on 01-27-2025 Calcium [Mass/Vol] 9.5 mg/dL 7.6-11.0 [facility] Serum or plasma cholesterol in HDL measurement (mass/volume)Ordered By: Sharmila Arteaga on 01-27-2025 Cholesterol in HDL [Mass/Vol] 28 mg/dL Low >40 [facility] Comment on above: National Cholesterol Education Program (NCEP) guidelines:<40 mg/dL: Low HDL-cholesterol (major risk factor for CHD)>= 60 mg/dL: High HDL-cholesterol (negative risk factor for CHD)HDL-cholesterol is affected by a number of factors, e.g. smoking, exercise, hormones, sex and age. Serum or plasma cholesterol measurement (mass/volume)Ordered By: Sharmila Arteaga on 01-27-2025 Cholesterol [Mass/Vol] 116 mg/dL <201 [facility] Comment on above: Cholesterol level, D esirable <200 mg/dLBorderline high cholesterol 200-239 mg/dLHigh cholesterol >=240 mg/dLRecommendations of the NCEP Adult Treatment Panel for the following risk-cutoff thresholds for the [place] population. Serum or plasma urea nitroge n measurement (mass/volume)Ordered By: Sharmila Arteaga on 01-27-2025 Urea nitrogen [Mass/Vol] 41 mg/dL High 4-19 [facility] Sodium levelOrdered By: Angel Arteaga on 01-27-2025 Sodium [Moles/Vol] 135 mmol/L 133-145 [facility] TSH DL <= 0.005 mIU/L QnOrde red By: Sharmila Arteaga on 01-27-2025 Thyroid Stimulating Hormone (TSH) 3.110 uIU/mL 0.300-4.200 [facility] TSH Qn 3.110 uIU/mL 0.300-4.200 [facility] Thyroid Stim Hormone (TSH)on 01-27-2025 TSH 3.110 uIU/mL Normal 0.300-4.200 [facility] Comment on above: Order Comment: 111 Performed By: #### L 501.9520, L506.0250, L502.0250, L501.5200, L3300.9910, L500.4050, L7400.3000, L503.0105, L503.6150, L503.6550, L503.6075, L100.0100, L506.0400 #### [facility] [address] [place], [address] Total proteinOrdered By: James Arteaga on 01-27-2025 Protein [Mass/Vol] 6.3 g/dL 5.9-8.4 [facility] Triglycerides measurementOrd ered By: Sharmila Arteaga on 01-27-2025 Triglyceride [Mass/Vol] 255 mg/dL High <199 [facility] Comment on above: The drugs N-Acetylcy steine and Metamizole may falsely depress this assay. Normal range: <150 mg/dLBorderline High: 150-199 mg/dLHigh: 200-499 mg/dLVery High: >500 mg/dL Vitamin B12 ser/plasOrdered By: Sharmila Arteaga on 01-27-2025 Cobalamin (Vitamin B12) [Mass/Vol] 536 pg/mL 180-914 [facility] Vitamin D, 25-hydroxyOrdered By: Sharmila Arteaga on 01-27-2025 Vitamin D 25-Hydroxy 14.8 ng/mL Low 30-100 [facility] Comment on above: Vitamin D StatusDefi ciency: <20 ng/mL (50nmol/L)Insufficiency: 20-30 ng/mL (50-75 nmol/L)Sufficiency: 30-100 ng/mL (75-250 nmol/L)Toxicity: >100 ng/mL (>250 nmol/L) White blood cell (WBC) count Ordered By: Sharmila Arteaga on 01-27-2025 WBC (Bld) [#/Vol] 7.4 10*3/uL 4.4-11.0 [facility] Renal Profileon 12-25-2024 Calcium [Mass/Vol] 10.0 mg/dL Normal 7.6-11.0 [facility] Comment on above: Performed By: #### L 501.9520, L506.0250, L502.0250, L501.5200, L3300.9910, L500.4050, L7400.3000, L503.0105, L503.6150, L503.6550, L503.6075, L100.0100, L506.0400 #### [facility] [address] [place], [address] Chloride [Moles/Vol] 103 mmol/L Normal 98-107 [facility] Comment on above: Performed By: #### L 501.9520, L506.0250, L502.0250, L501.5200, L3300.9910, L500.4050, L7400.3000, L503.0105, L503.6150, L503.6550, L503.6075, L100.0100, L506.0400 #### [facility] [address] [place], [address] CO2 [Moles/Vol] 20.2 mmol/L Low 21.0-32.0 [facility] Comment on above: Performed By: #### L 501.9520, L506.0250, L502.0250, L501.5200, L3300.9910, L500.4050, L7400.3000, L503.0105, L503.6150, L503.6550, L503.6075, L100.0100, L506.0400 #### [facility] [address] [place], [address] Potassium [Moles/Vol] 4.8 mmol/L Normal 3.5-5.1 [facility] Comment on above: Performed By: #### L 501.9520, L506.0250, L502.0250, L501.5200, L3300.9910, L500.4050, L7400.3000, L503.0105, L503.6150, L503.6550, L503.6075, L100.0100, L506.0400 #### [facility] [address] [place], [address] Sodium [Moles/Vol] 140 mmol/L Normal 136-145 [facility] Comment on above: Performed By: #### L 501.9520, L506.0250, L502.0250, L501.5200, L3300.9910, L500.4050, L7400.3000, L503.0105, L503.6150, L503.6550, L503.6075, L100.0100, L506.0400 #### [facility] [address] [place], [place], [id number] BUN/creatinine ratioon 12-24 Urea nitrogen/Creatinine [Mass ratio] 17.5 mg/mg 10-20 [facility] Creatinine Unsp time (U) [Ma ss/Vol]on 12-24-2024 Creatinine (U) [Mass/Vol] 90.10 mg/dL NO RANGE EST. [facility] Creatinine [Moles/Vol]on Creatinine [Mass/Vol] 2.0 mg/dL High 0.8-1.3 [facility] GFR/1.73 sq M.predicted roxann g non-blacks MDRD (S/P/Bld) [Vol rate/Area]on 12-24-2024 Estimated GFR (MDRD) Non-Af Amer 35 Low >60 [facility] Comment on above: mL/min/1.73m2 CKD-EP I Creatinine Equation (2020) Glomerular filtration rate ( GFR) estimation/1.73 sq m using serum, plasma, or whole bon 12-24-2024 GFR/1.73 sq M.predicted among non-blacks MDRD (S/P/Bld) [Vol rate/Area] 35 mL/min/{1.73_m2} Low >60 [facility] Comment on above: mL/min/1.73m2 CKD-EP I Creatinine Equation (2020) Potassium measurementon 12-01 Potassium [Moles/Vol] 4.8 mmol/L 3.5-5.1 [facility] Protein+Creatinine Ratio,Uri neon 12-24-2024 PROT:CRE RATIO 383 mg/g CRE High 0-200 [facility] Comment on above: Performed By: #### L 501.9520, L506.0250, L502.0250, L501.5200, L3300.9910, L500.4050, L7400.3000, L503.0105, L503.6150, L503.6550, L503.6075, L100.0100, L506.0400 #### [facility] [address] [place], [address] Protein (U) [Mass/Vol] 35 mg/dL Normal <=12 [facility] Comment on above: Performed By: #### L 501.9520, L506.0250, L502.0250, L501.5200, L3300.9910, L500.4050, L7400.3000, L503.0105, L503.6150, L503.6550, L503.6075, L100.0100, L506.0400 #### [facility] [address] [place], [address] UR CREAT 90.10 mg/dL Normal NO RANGE EST. [facility] Comment on above: Performed By: #### L 501.9520, L506.0250, L502.0250, L501.5200, L3300.9910, L500.4050, L7400.3000, L503.0105, L503.6150, L503.6550, L503.6075, L100.0100, L506.0400 #### [facility] [address] [facility] [place], [address] Protein/Creatinine (U) [Mass ratio]on 12-24-2024 Urine Protein/Creatinine Ratio 383 mg/g CRE High 0-200 [facility] Random urine creatinine quynh urement (mass/volume)on 12-24-2024 Creatinine Unsp time (U) [Mass/Vol] 90.10 mg/dL NO RANGE EST. [facility] Serum glucose measurement (m ass/volume)on 12-24-2024 Glucose [Mass/Vol] 158 mg/dL High 70-99 [facility] Serum or plasma albumin quynh urement (mass/volume)on 12-24-2024 Albumin [Mass/Vol] 4.0 g/dL 3.4-4.8 [facility] Serum or plasma calcium quynh urement (mass/volume)on 12-24-2024 Calcium [Mass/Vol] 10.0 mg/dL 7.6-11.0 [facility] Serum or plasma carbon dioxi de measurement (moles/volume)on 12-24-2024 CO2 [Moles/Vol] 20.2 mmol/L Low 21.0-32.0 [facility] Serum or plasma chloride oanh surement (moles/volume)on 12-24-2024 Chloride [Moles/Vol] 103 mmol/L 98-107 [facility] Serum or plasma creatinine m easurement (moles/volume)on 12-24-2024 Creatinine [Moles/Vol] 2.0 mg/dL High 0.8-1.3 [facility] Serum or plasma urea nitroge n measurement (mass/volume)on 12-24-2024 Urea nitrogen [Mass/Vol] 35 mg/dL High 4-19 [facility] Serum phosphorus measurement on 12-24-2024 Phosphorus Level 3.3 mg/dL 2.7-4.5 [facility] Sodium levelon 12-24-2024 Sodium [Moles/Vol] 140 mmol/L 136-145 [facility] Urine protein measurement (m ass/volume)on 12-24-2024 Protein (U) [Mass/Vol] 35 mg/dL <=12 [facility] Urine protein/creatinine mas s ratioon 12-24-2024 Protein/Creatinine (U) [Mass ratio] 383 mg/g CRE High 0-200 [facility] Methylmalonic Acid [place] METHYLMAL ACID 295 nmol/L Normal 0-378 [facility] Comment on above: Order Comment: Test( s) 916547-Yiafpnajifxbt Acid, Serumwas developed and its performance characteristicsdetermined by [employer]. It has not been cleared or approvedby the Food and Drug Administration. Result Comment: Perf ormed at: - [facility] [id number] Cyber Instructor: Dilcia Sloan MD, Phone: [phone] Performed By: #### L 501.9520, L506.0250, L502.0250, L501.5200, L3300.9910, L500.4050, L7400.3000, L503.0105, L503.6150, L503.6550, L503.6075, L100.0100, L506.0400 #### [facility] [address] [place], [place], [address] Zinc, WHOLE BLOODon 12-05-19 25 Zinc Whole Bld 632 ug/dL Normal 440-860 [facility] Comment on above: Order Comment: Test( s) 226839-Vsbi, Whole Bloodwas developed and its performance characteristicsdetermined by [facility]. It has not been cleared or approvedby the Food and Drug Administration. Result Comment: Perf ormed at: - [facility] [id number] Cyber Instructor: Dilcia Sloan MD, Phone: [phone] Performed By: #### L 501.9520, L506.0250, L502.0250, L501.5200, L3300.9910, L500.4050, L7400.3000, L503.0105, L503.6150, L503.6550, L503.6075, L100.0100, L506.0400 #### [facility] [address] [facility] [place], [address] L3410.9998on 12-04-2024 [facility]. COMMENT Normal . [facility] Comment on above: Order Comment: [id number] 3HGB A1C Result Comment: Test Ordered: [id number] Hemoglobin A1c Hemoglobin A1c 7.1 [H ] % Reference Range: 4.8-5.6 Prediabetes: 5.7 - 6.4 Diabetes: >6.4 Glycemic control for adults with diabetes: <7.0 Performed at: - [facility] [id number] Cyber Instructor: Greg Preciado PhD, Phone: [phone] Performed By: #### L 501.9520, L506.0250, L502.0250, L501.5200, L3300.9910, L500.4050, L7400.3000, L503.0105, L503.6150, L503.6550, L503.6075, L100.0100, L506.0400 #### [facility] [address] [place], [address] Absolute neutrophil countOrd ered By: PHYLLIS MAE on 12-02-2024 Neutrophils (Bld) [#/Vol] 3.9 10*3/uL 2.0-7.7 [facility] Albumin to globulin ratioOrd ered By: PHYLLIS MAE on 12-02-2024 Albumin/Globulin [Mass ratio] 0.9 {ratio} 0.9-2.4 [facility] Basophil percentageOrdered B y: PHYLLIS MAE on 12-02-2024 Basophils/100 WBC (Bld) 0.7 % 0-1 [facility] Bilirubin, totalOrdered By: PHYLLISMAX MAE on 12-02-2024 Bilirubin [Mass/Vol] 0.40 mg/dL 0.20-1.00 [facility] Comment on above: For patients on eltr ombopag therapy, use of Dimension [place]ta TBIL is not recommended. Blood urea nitrogen (BUN)/cr eatinine ratioOrdered By: PHYLLIS MAE on 12-02-2024 Urea nitrogen/Creatinine [Mass ratio] 13.0 mg/mg 10-20 [facility] CBC W/Diff, Automatedon Absolute Lymph 2.44 X10 3/uL Normal 0.83-4.51 [facility] Comment on above: Performed By: #### L 501.9520, L506.0250, L502.0250, L501.5200, L3300.9910, L500.4050, L7400.3000, L503.0105, L503.6150, L503.6550, L503.6075, L100.0100, L506.0400 #### [facility] [address] [place], [address] Absolute Neut 3.9 X10 3/uL Normal 2.0-7.7 [facility] Comment on above: Performed By: #### L 501.9520, L506.0250, L502.0250, L501.5200, L3300.9910, L500.4050, L7400.3000, L503.0105, L503.6150, L503.6550, L503.6075, L100.0100, L506.0400 #### [facility] [address] [facility] [place], [address] Basophils/100 WBC (Bld) 0.7 % Normal 0-1 [facility] Comment on above: Performed By: #### L 501.9520, L506.0250, L502.0250, L501.5200, L3300.9910, L500.4050, L7400.3000, L503.0105, L503.6150, L503.6550, L503.6075, L100.0100, L506.0400 #### [facility] [address] [facility] [place], [address] Eosinophils/100 WBC (Bld) 4.1 % Normal 0-5 [facility] Comment on above: Performed By: #### L 501.9520, L506.0250, L502.0250, L501.5200, L3300.9910, L500.4050, L7400.3000, L503.0105, L503.6150, L503.6550, L503.6075, L100.0100, L506.0400 #### [facility] [address] [facility] [place], [place], [id number] (946) Erythrocyte distribution width (RBC) [Ratio] 13.0 % Normal 11.6-14.6 [facility] Comment on above: Performed By: #### L 501.9520, L506.0250, L502.0250, L501.5200, L3300.9910, L500.4050, L7400.3000, L503.0105, L503.6150, L503.6550, L503.6075, L100.0100, L506.0400 #### [facility] [address] [facility] [place], [address] Hematocrit (Bld) [Volume fraction] 35.9 % Low 40-54 [facility] Comment on above: Performed By: #### L 501.9520, L506.0250, L502.0250, L501.5200, L3300.9910, L500.4050, L7400.3000, L503.0105, L503.6150, L503.6550, L503.6075, L100.0100, L506.0400 #### [facility] [address] [place], [address] Hemoglobin (Bld) [Mass/Vol] 12.0 g/dL Low 13.0-16.5 [facility] Comment on above: Performed By: #### L 501.9520, L506.0250, L502.0250, L501.5200, L3300.9910, L500.4050, L7400.3000, L503.0105, L503.6150, L503.6550, L503.6075, L100.0100, L506.0400 #### [facility] [address] [facility] [place], [address] IG% 0.600 Normal 0.0-0.9 [facility] Comment on above: Result Comment: IG% - Immature Granulocytes (promyelocytes, myelocytes and metamyelocytes) > 1% indicates that a LEFT SHIFT is Present. Performed By: #### L 501.9520, L506.0250, L502.0250, L501.5200, L3300.9910, L500.4050, L7400.3000, L503.0105, L503.6150, L503.6550, L503.6075, L100.0100, L506.0400 #### [facility] [address] [facility] [place], [address] Lymphocytes/100 WBC (Bld) 33.7 % Normal 19-41 [facility] Comment on above: Performed By: #### L 501.9520, L506.0250, L502.0250, L501.5200, L3300.9910, L500.4050, L7400.3000, L503.0105, L503.6150, L503.6550, L503.6075, L100.0100, L506.0400 #### [facility] [address] [place], [address] MCH (RBC) [Entitic mass] 33.3 pg High 27.0-32.0 [facility] Comment on above: Performed By: #### L 501.9520, L506.0250, L502.0250, L501.5200, L3300.9910, L500.4050, L7400.3000, L503.0105, L503.6150, L503.6550, L503.6075, L100.0100, L506.0400 #### [facility] [address] [place], [address] MCHC (RBC) [Mass/Vol] 33.4 g/dL Normal 32-36 [facility] Comment on above: Performed By: #### L 501.9520, L506.0250, L502.0250, L501.5200, L3300.9910, L500.4050, L7400.3000, L503.0105, L503.6150, L503.6550, L503.6075, L100.0100, L506.0400 #### [facility] [address] [place], [address] MCV (RBC) [Entitic vol] 99.7 fL High 80-94 [facility] Comment on above: Performed By: #### L 501.9520, L506.0250, L502.0250, L501.5200, L3300.9910, L500.4050, L7400.3000, L503.0105, L503.6150, L503.6550, L503.6075, L100.0100, L506.0400 #### [facility] [address] [place], [address] Monocytes/100 WBC (Bld) 7.6 % Normal 0-10 [facility] Comment on above: Performed By: #### L 501.9520, L506.0250, L502.0250, L501.5200, L3300.9910, L500.4050, L7400.3000, L503.0105, L503.6150, L503.6550, L503.6075, L100.0100, L506.0400 #### [facility] [address] [place], [address] Neutrophils/100 WBC (Bld) 53.3 % Normal 47-70 [facility] Comment on above: Performed By: #### L 501.9520, L506.0250, L502.0250, L501.5200, L3300.9910, L500.4050, L7400.3000, L503.0105, L503.6150, L503.6550, L503.6075, L100.0100, L506.0400 #### [facility] [address] [facility] [place], [address] Nucleated RBC (Bld) [#/Vol] 0 10*3/uL Normal 0-5 [facility] Comment on above: Performed By: #### L 501.9520, L506.0250, L502.0250, L501.5200, L3300.9910, L500.4050, L7400.3000, L503.0105, L503.6150, L503.6550, L503.6075, L100.0100, L506.0400 #### [facility] [address] [facility] [place], [address] Platelet mean volume (Bld) [Entitic vol] 11.4 fL Normal 6.2-12.0 [facility] Comment on above: Performed By: #### L 501.9520, L506.0250, L502.0250, L501.5200, L3300.9910, L500.4050, L7400.3000, L503.0105, L503.6150, L503.6550, L503.6075, L100.0100, L506.0400 #### [facility] [address] [facility] [place], [address] Platelets (Bld) [#/Vol] 277 10*3/uL Normal 150-450 [facility] Comment on above: Performed By: #### L 501.9520, L506.0250, L502.0250, L501.5200, L3300.9910, L500.4050, L7400.3000, L503.0105, L503.6150, L503.6550, L503.6075, L100.0100, L506.0400 #### [facility] [address] [facility] [place], [address] RBC (Bld) [#/Vol] 3.60 10*6/uL Low 4.6-6.2 [facility] Comment on above: Performed By: #### L 501.9520, L506.0250, L502.0250, L501.5200, L3300.9910, L500.4050, L7400.3000, L503.0105, L503.6150, L503.6550, L503.6075, L100.0100, L506.0400 #### [facility] [address] [facility] [place], [place], [address] (750) RDW SD 47.8 fl High 35.1-43.9 [facility] Comment on above: Performed By: #### L 501.9520, L506.0250, L502.0250, L501.5200, L3300.9910, L500.4050, L7400.3000, L503.0105, L503.6150, L503.6550, L503.6075, L100.0100, L506.0400 #### [facility] [address] [place], [address] WBC (Bld) [#/Vol] 7.3 10*3/uL Normal 4.4-11.0 [facility] Comment on above: Performed By: #### L 501.9520, L506.0250, L502.0250, L501.5200, L3300.9910, L500.4050, L7400.3000, L503.0105, L503.6150, L503.6550, L503.6075, L100.0100, L506.0400 #### [facility] [address] [place], [place], [id number] Carbon dioxide measurementOr dered By: PHYLLIS MAE on 12-02-2024 CO2 [Moles/Vol] 25.0 mmol/L 21.0-32.0 [facility] Chloride measurementOrdered By: PHYLLIS MAE on 12-02-2024 Chloride [Moles/Vol] 107 mmol/L 98-107 [facility] Comprehensive Metabolic Prof ilon 12-02-2024 Albumin [Mass/Vol] 3.6 g/dL Normal 3.2-5.0 [facility] Comment on above: Performed By: #### L 501.9520, L506.0250, L502.0250, L501.5200, L3300.9910, L500.4050, L7400.3000, L503.0105, L503.6150, L503.6550, L503.6075, L100.0100, L506.0400 #### [facility] [address] [place], [place], [id number] Albumin/Globulin [Mass ratio] 0.9 {ratio} Normal 0.9-2.4 [facility] Comment on above: Performed By: #### L 501.9520, L506.0250, L502.0250, L501.5200, L3300.9910, L500.4050, L7400.3000, L503.0105, L503.6150, L503.6550, L503.6075, L100.0100, L506.0400 #### [facility] [address] [place], [place], [id number] ALK P 42 U/L Low 45-117 [facility] Comment on above: Performed By: #### L 501.9520, L506.0250, L502.0250, L501.5200, L3300.9910, L500.4050, L7400.3000, L503.0105, L503.6150, L503.6550, L503.6075, L100.0100, L506.0400 #### [facility] [address] [place], [place], [id number] (343) ALT [Catalytic activity/Vol] 31 U/L Normal 16-61 [facility] Comment on above: Performed By: #### L 501.9520, L506.0250, L502.0250, L501.5200, L3300.9910, L500.4050, L7400.3000, L503.0105, L503.6150, L503.6550, L503.6075, L100.0100, L506.0400 #### [facility] [address] [place], [place], [id number] (474) AST [Catalytic activity/Vol] 33 U/L Normal 15-37 [facility] Comment on above: Performed By: #### L 501.9520, L506.0250, L502.0250, L501.5200, L3300.9910, L500.4050, L7400.3000, L503.0105, L503.6150, L503.6550, L503.6075, L100.0100, L506.0400 #### [facility] [address] [place], [place], [id number] Bilirubin [Mass/Vol] 0.40 mg/dL Normal 0.20-1.00 [facility] Comment on above: Result Comment: For patients on eltrombopag therapy, use of Dimension [place] TBIL is not recommended. Performed By: #### L 501.9520, L506.0250, L502.0250, L501.5200, L3300.9910, L500.4050, L7400.3000, L503.0105, L503.6150, L503.6550, L503.6075, L100.0100, L506.0400 #### [facility] [address] [place], [address] BUN/CRE 13.0 RATIO Normal 10-20 [facility] Comment on above: Performed By: #### L 501.9520, L506.0250, L502.0250, L501.5200, L3300.9910, L500.4050, L7400.3000, L503.0105, L503.6150, L503.6550, L503.6075, L100.0100, L506.0400 #### [facility] [address] [place], [address] CA,Total 9.4 mg/dL Normal 8.5-10.1 [facility] Comment on above: Performed By: #### L 501.9520, L506.0250, L502.0250, L501.5200, L3300.9910, L500.4050, L7400.3000, L503.0105, L503.6150, L503.6550, L503.6075, L100.0100, L506.0400 #### [facility] [address] [place], [address] Chloride [Moles/Vol] 107 mmol/L Normal 98-107 [facility] Comment on above: Performed By: #### L 501.9520, L506.0250, L502.0250, L501.5200, L3300.9910, L500.4050, L7400.3000, L503.0105, L503.6150, L503.6550, L503.6075, L100.0100, L506.0400 #### [facility] [address] [place], [place], [id number] (460) CO2 [Moles/Vol] 25.0 mmol/L Normal 21.0-32.0 [facility] Comment on above: Performed By: #### L 501.9520, L506.0250, L502.0250, L501.5200, L3300.9910, L500.4050, L7400.3000, L503.0105, L503.6150, L503.6550, L503.6075, L100.0100, L506.0400 #### [facility] [facility] [address] [place], [place], [id number] Creatinine [Mass/Vol] 1.85 mg/dL High 0.70-1.30 [facility] Comment on above: Result Comment: The validity of the calculated GFR GFRAA in patients over 70 years has not been determined. Clinical correlation is essential. Performed By: #### L 501.9520, L506.0250, L502.0250, L501.5200, L3300.9910, L500.4050, L7400.3000, L503.0105, L503.6150, L503.6550, L503.6075, L100.0100, L506.0400 #### [facility] [address] [place], [place], [id number] EST GFR - AA 46 mL/min Low >60 [facility] Comment on above: Result Comment: Afri can Burkinan GFR Calc Performed By: #### L 501.9520, L506.0250, L502.0250, L501.5200, L3300.9910, L500.4050, L7400.3000, L503.0105, L503.6150, L503.6550, L503.6075, L100.0100, L506.0400 #### [facility] [address] [place], [address] GAP 7 Normal 5-15 [facility] Comment on above: Performed By: #### L 501.9520, L506.0250, L502.0250, L501.5200, L3300.9910, L500.4050, L7400.3000, L503.0105, L503.6150, L503.6550, L503.6075, L100.0100, L506.0400 #### [facility] [address] [place], [address] GFR/1.73 sq M.predicted among non-blacks MDRD (S/P/Bld) [Vol rate/Area] 38 mL/min/{1.73_m2} Low >60 [facility] Comment on above: Result Comment: Non- GFR Calc Performed By: #### L 501.9520, L506.0250, L502.0250, L501.5200, L3300.9910, L500.4050, L7400.3000, L503.0105, L503.6150, L503.6550, L503.6075, L100.0100, L506.0400 #### [facility] [address] [place], [address] Globulin (S) [Mass/Vol] 3.8 g/dL Normal 2.2-4.2 [facility] Comment on above: Performed By: #### L 501.9520, L506.0250, L502.0250, L501.5200, L3300.9910, L500.4050, L7400.3000, L503.0105, L503.6150, L503.6550, L503.6075, L100.0100, L506.0400 #### [facility] [address] [place], [address] Glucose [Mass/Vol] 156 mg/dL High 74-106 [facility] Comment on above: Result Comment: Fast ing Glucose result greater than or equal to 126 mg/dL suggests DIABETES MELLITUS per A.D.A. criteria. Performed By: #### L 501.9520, L506.0250, L502.0250, L501.5200, L3300.9910, L500.4050, L7400.3000, L503.0105, L503.6150, L503.6550, L503.6075, L100.0100, L506.0400 #### [facility] [address] [place], [address] Potassium [Moles/Vol] 4.8 mmol/L Normal 3.5-5.1 [facility] Comment on above: Performed By: #### L 501.9520, L506.0250, L502.0250, L501.5200, L3300.9910, L500.4050, L7400.3000, L503.0105, L503.6150, L503.6550, L503.6075, L100.0100, L506.0400 #### [facility] [address] [place], [address] Sodium [Moles/Vol] 139 mmol/L Normal 136-145 [facility] Comment on above: Performed By: #### L 501.9520, L506.0250, L502.0250, L501.5200, L3300.9910, L500.4050, L7400.3000, L503.0105, L503.6150, L503.6550, L503.6075, L100.0100, L506.0400 #### [facility] [address] [place], [address] T PROT 7.4 g/dL Normal 6.4-8.2 [facility] Comment on above: Performed By: #### L 501.9520, L506.0250, L502.0250, L501.5200, L3300.9910, L500.4050, L7400.3000, L503.0105, L503.6150, L503.6550, L503.6075, L100.0100, L506.0400 #### [facility] [address] [place], [place], [id number] Urea nitrogen [Mass/Vol] 24 mg/dL High 7-18 [facility] Comment on above: Performed By: #### L 501.9520, L506.0250, L502.0250, L501.5200, L3300.9910, L500.4050, L7400.3000, L503.0105, L503.6150, L503.6550, L503.6075, L100.0100, L506.0400 #### [facility] [address] [facility] [place], [address] Direct serum free thyroxine (FT4) measurementOrdered By: PHYLLIS MAE on 12-02-2024 Free T4 [Mass/Vol] 0.94 ng/dL 0.76-1.46 [facility] Eosinophil percentageOrdered By: PHYLLIS MAE on 12-02-2024 Eosinophils/100 WBC (Bld) 4.1 % 0-5 [facility] Erythrocyte distribution wid th ratioOrdered By: PHYLLISMAX MAE on 12-02-2024 Erythrocyte distribution width (RBC) [Ratio] 13.0 % 11.6-14.6 [facility] Erythrocyte distribution wid th standard deviationOrdered By: PHYLLISAllie MAE on 12-02-2024 Erythrocyte distribution width (RBC) [Entitic vol] 47.8 fL High 35.1-43.9 [facility] Estimated glomerular filtrat ion rate (GFR) AmericanOrdered By: PHYLLIS MAE on 12-02-2024 Estimated GFR (MDRD) Amer 46 mL/min Low >60 [facility] Comment on above: GFR Calc Ferritinon 12-02-2024 Ferritin [Mass/Vol] 190 ng/mL Normal 26-388 [facility] Comment on above: Performed By: #### L 501.9520, L506.0250, L502.0250, L501.5200, L3300.9910, L500.4050, L7400.3000, L503.0105, L503.6150, L503.6550, L503.6075, L100.0100, L506.0400 #### [facility] [address] [facility] [place], [place], [id number] Ferritin measurementOrdered By: PHYLLIS MAE on 12-02-2024 Ferritin [Mass/Vol] 190 ng/mL 26-388 [facility] Folates, (Folic Acid)on FOLATES 72.50 ng/mL High 3.1-55.4 [facility] Comment on above: Order Comment: N Performed By: #### L 501.9520, L506.0250, L502.0250, L501.5200, L3300.9910, L500.4050, L7400.3000, L503.0105, L503.6150, L503.6550, L503.6075, L100.0100, L506.0400 #### [facility] [address] [facility] [place], [place], [id number] Folic acid measurementOrdere d By: PHYLLIS MAE on 12-02-2024 Folate 72.50 ng/mL High 3.1-55.4 [facility] Glomerular filtration rate ( GFR) estimationOrdered By: PHYLLIS MAE on 12-02-2024 Estimated GFR (MDRD) Non-Af Amer 38 mL/min Low >60 [facility] Comment on above: Non- GFR Calc Glucose measurementOrdered B y: PHYLLIS MAE on 12-02-2024 Glucose [Mass/Vol] 156 mg/dL High 74-106 [facility] Comment on above: Fasting Glucose resu lt greater than or equal to 126 mg/dL suggests DIABETES MELLITUS per A.D.A. criteria. Hematocrit Auto (Bld) [Volum e fraction]Ordered By: PHYLLIS MAE on 12-02-2024 Hematocrit (Bld) [Volume fraction] 35.9 % Low 40-54 [facility] Hemoglobin measurementOrdere d By: PHYLLIS MAE on 12-02-2024 Hemoglobin (Bld) [Mass/Vol] 12.0 g/dL Low 13.0-16.5 [facility] Immature granulocytes/100 WB C Auto (Bld)Ordered By: PHYLLIS MAE on 12-02-2024 Immature granulocytes/100 WBC (Bld) 0.600 % 0.0-0.9 [facility] Comment on above: IG% - Immature Granu locytes (promyelocytes, myelocytes and metamyelocytes) > 1% indicates that a LEFT SHIFT is Present. Ironon 12-02-2024 Iron [Mass/Vol] 97 ug/dL Normal 65-175 [facility] Comment on above: Performed By: #### L 501.9520, L506.0250, L502.0250, L501.5200, L3300.9910, L500.4050, L7400.3000, L503.0105, L503.6150, L503.6550, L503.6075, L100.0100, L506.0400 #### [facility] [address] [place], [address] Iron (Unsp spec) [Mass/Mass] Ordered By: PHYLLIS MAE on 12-02-2024 Iron [Mass/Vol] 97 ug/dL 65-175 [facility] Iron Binding Capacity,Totalo n 12-02-2024 TIBC 377 ug/dL Normal 250-450 [facility] Comment on above: Performed By: #### L 501.9520, L506.0250, L502.0250, L501.5200, L3300.9910, L500.4050, L7400.3000, L503.0105, L503.6150, L503.6550, L503.6075, L100.0100, L506.0400 #### [facility] [address] [facility] [place], [address] Laboratory - Chemistry and C hemistry - challengeOrdered By: PHYLLIS MAE on 12-02-2024 AST [Catalytic activity/Vol] 33 U/L 15-37 [facility] Lymphocytes Auto (Unsp spec) [#/Vol]Ordered By: PHYLLIS MAE on 12-02-2024 Lymphocytes (Bld) [#/Vol] 2.44 10*3/uL 0.83-4.51 [facility] Lymphocytes/100 WBC Auto (Un sp spec)Ordered By: PHYLLIS MAE on 12-02-2024 Lymphocytes/100 WBC (Bld) 33.7 % 19-41 [facility] MCV (mean corpuscular volume ) determinationOrdered By: PHYLLIS MAE on 12-02-2024 MCV (RBC) [Entitic vol] 99.7 fL High 80-94 [facility] Magnesiumon 12-02-2024 Magnesium [Mass/Vol] 2.1 mg/dL Normal 1.6-2.6 [facility] Comment on above: Performed By: #### L 501.9520, L506.0250, L502.0250, L501.5200, L3300.9910, L500.4050, L7400.3000, L503.0105, L503.6150, L503.6550, L503.6075, L100.0100, L506.0400 #### [facility] [address] [place] [address]. [place], [address] Magnesium measurementOrdered By: PHYLLIS MAE on 12-02-2024 Magnesium [Mass/Vol] 2.1 mg/dL 1.6-2.6 [facility] Mean corpuscular hemoglobin (MCH) determinationOrdered By: PHYLLIS MAE on 12-02-2024 MCH (RBC) [Entitic mass] 33.3 pg High 27.0-32.0 [facility] Mean corpuscular hemoglobin concentration (MCHC) determinationOrdered By: PHYLLIS MAE on 12-02-2024 MCHC (RBC) [Mass/Vol] 33.4 g/dL 32-36 [facility] Mean platelet volume determi nationOrdered By: PHYLLIS MAE on 12-02-2024 Platelet mean volume (Bld) [Entitic vol] 11.4 fL 6.2-12.0 [facility] Methylmalonate [Moles/Vol]Or dered By: PHYLLIS MAE on 12-02-2024 Methylmalonic Acid 295 nmol/L 0-378 [facility] Comment on above: Performed at: [address] [id number] Director: Dilcia Sloan MD, Phone: [phone] Microalb:Creat Ratio,Random URon 12-02-2024 Creatinine [Mass/Vol] 114.00 mg/dL Normal NO RAN GE EST. [facility] Comment on above: Performed By: #### L 501.9520, L506.0250, L502.0250, L501.5200, L3300.9910, L500.4050, L7400.3000, L503.0105, L503.6150, L503.6550, L503.6075, L100.0100, L506.0400 #### [facility] [address] [facility] [place], [place], [id number] MALB:CRE 491.2 mg/g CRE High <30 mg/g CRE [facility] Comment on above: Performed By: #### L 501.9520, L506.0250, L502.0250, L501.5200, L3300.9910, L500.4050, L7400.3000, L503.0105, L503.6150, L503.6550, L503.6075, L100.0100, L506.0400 #### [facility] [address] [facility] [place], [place], [id number] MICROALBUMIN,UR 560.0 mg/L Normal NO RANGE EST. [facility] Comment on above: Performed By: #### L 501.9520, L506.0250, L502.0250, L501.5200, L3300.9910, L500.4050, L7400.3000, L503.0105, L503.6150, L503.6550, L503.6075, L100.0100, L506.0400 #### [facility] [address] [facility] [place], [address] Monocyte percentageOrdered B y: PHYLLIS MAE on 12-02-2024 Monocytes/100 WBC (Bld) 7.6 % 0-10 [facility] Neutrophil percentageOrdered By: PHYLLIS MAE on 12-02-2024 Neutrophils/100 WBC (Bld) 53.3 % 47-70 [facility] Nucleated red blood cell per centageOrdered By: PHYLLIS MAE on 12-02-2024 Nucleated RBC/100 WBC (Bld) [Ratio] 0 % 0-5 [facility] Platelet countOrdered By: HAYLEY MAE on 12-02-2024 Platelets (Bld) [#/Vol] 277 10*3/uL 150-450 [facility] Potassium measurementOrdered By: PHYLLIS MAE on 12-02-2024 Potassium [Moles/Vol] 4.8 mmol/L 3.5-5.1 [facility] RBC Auto (Bld) [#/Vol]Ordere d By: PHYLLIS MAE on 12-02-2024 RBC (Bld) [#/Vol] 3.60 10*6/uL Low 4.6-6.2 [facility] Random urine microalbumin me asurementOrdered By: PHYLLIS MAE on 12-02-2024 Urine Random Microalbumin 560.0 mg/L NO RANGE EST. [facility] Serum anion gap measurementO rdered By: PHYLLIS MAE on 12-02-2024 Anion gap [Moles/Vol] 7 mmol/L 5-15 [facility] Serum globulin measurementOr dered By: PHYLLIS MAE on 12-02-2024 Globulin (S) [Mass/Vol] 3.8 g/dL 2.2-4.2 [facility] Serum or plasma alanine hutson otransferase (ALT) measurementOrdered By: PHYLLIS MAE on 12-02-2024 ALT [Catalytic activity/Vol] 31 U/L 16-61 [facility] Serum or plasma albumin quynh urement (mass/volume)Ordered By: PHYLLIS MAE on 12-02-2024 Albumin [Mass/Vol] 3.6 g/dL 3.2-5.0 [facility] Serum or plasma alkaline charito sphatase measurementOrdered By: PHYLLIS MAE on 12-02-2024 ALP [Catalytic activity/Vol] 42 U/L Low 45-117 [facility] Serum or plasma calcium quynh urement (mass/volume)Ordered By: PHYLLIS MAE on 12-02-2024 Calcium [Mass/Vol] 9.4 mg/dL 8.5-10.1 [facility] Serum or plasma creatinine m easurement (mass/volume)Ordered By: PHYLLIS MAE on 12-02-2024 Creatinine [Mass/Vol] 1.85 mg/dL High 0.70-1.30 [facility] Comment on above: The validity of the calculated GFR & GFRAA in patients over 70 years has not been determined. Clinical correlation is essential. Serum or plasma urea nitroge n measurement (mass/volume)Ordered By: PHYLLIS MAE on 12-02-2024 Urea nitrogen [Mass/Vol] 24 mg/dL High 7-18 [facility] Sodium levelOrdered By: NEDA MAE on 12-02-2024 Sodium [Moles/Vol] 139 mmol/L 136-145 [facility] T4 Free Directon 12-02-2024 T4 FREE DIRECT 0.94 ng/dL Normal 0.76-1.46 [facility] Comment on above: Order Comment: N Performed By: #### L 501.9520, L506.0250, L502.0250, L501.5200, L3300.9910, L500.4050, L7400.3000, L503.0105, L503.6150, L503.6550, L503.6075, L100.0100, L506.0400 #### [facility] [place], [address] TIBCOrdered By: PHYLLIS KHANNA on 12-02-2024 Total Iron Binding Capacity 377 ug/dL 250-450 [facility] TSH QnOrdered By: PHYLLIS GONG on 12-02-2024 Thyroid Stimulating Hormone (TSH) 2.380 uIU/mL 0.358-3.740 [facility] Thyroid Stim Hormone (TSH)on 12-02-2024 TSH 2.380 uIU/mL Normal 0.358-3.740 [facility] Comment on above: Performed By: #### L 501.9520, L506.0250, L502.0250, L501.5200, L3300.9910, L500.4050, L7400.3000, L503.0105, L503.6150, L503.6550, L503.6075, L100.0100, L506.0400 #### [facility] [address] [facility] [place], [address] Total proteinOrdered By: JUAREZ MAE on 12-02-2024 Protein [Mass/Vol] 7.4 g/dL 6.4-8.2 [facility] Urine albumin/creatinine rat io for detection of microalbuminuriaOrdered By: PHYLLIS MAE on 12-02-2024 Urine Microalbumin/Creatinine Ratio 491.2 mg/g CRE High <30 [facility] Urine creatinine measurement (mass/volume)Ordered By: PHYLLIS MAE on 12-02-2024 Creatinine (U) [Mass/Vol] 114.00 mg/dL NO RANGE EST. [facility] Vitamin B12on 12-02-2024 Cobalamin (Vitamin B12) [Mass/Vol] 440 pg/mL Normal [facility] Comment on above: Performed By: #### L 501.9520, L506.0250, L502.0250, L501.5200, L3300.9910, L500.4050, L7400.3000, L503.0105, L503.6150, L503.6550, L503.6075, L100.0100, L506.0400 #### [facility] [address] [facility] [place], [address] Vitamin B12 measurementOrder ed By: PHYLLIS MAE on 12-02-2024 Cobalamin (Vitamin B12) [Mass/Vol] 440 pg/mL [facility] White blood cell (WBC) count Ordered By: PHYLLIS MAE on 12-02-2024 WBC (Bld) [#/Vol] 7.3 10*3/uL 4.4-11.0 [facility] Zinc WBOrdered By: PHYLLIS PAGE on 12-02-2024 Whole Blood Zinc 632 ug/dL 440-860 [facility] Comment on above: Performed at: [address] [id number] Director: Dilcia Sloan MD, Phone: [phone] NM MYOCARDIAL PERFUSION MULT I SPECTon 09-16-2024 NM MYOCARDIAL PERFUSION MULTI SPECT Patient Info Name: STEVO GERMAIN Age: 74 years : 1950 Gender: Male Ht: 168 cm Wt: 64 kg BSA: 1.74 m2 HR: 56 bpm BP: 155 / 70 mmHg Heart Rhythm: Bradycardia Exam Date: 09/16/2024 9:00 AM Patient Status: Outpatient Finish Opener: Joelle Holbrook, RT(N), FAINA, LILLIE, Saurabh Holbrook RT(N), NCT Exam Type: NM MYOCARDIAL PERFUSION MULTI SPECT Study Info Indications - chest pain; history of CVA Nuclear Physician: Clarita Galvez MD Referring Physician: JAIDEN; [id number] Primary Nurse: Felicitas Cline RN Supervising Stress [...] right antecubital Administered By: Joelle Holbrook RT(N), DEVELOPMENTAL WRITING INSTRUCTOR, [facility] Camera Used: [employer] D-SPECT Radiopharmaceutical: Tc-99m Tetrofosmin Administration Site: IV - right antecubital Administered By: Saurabh Holbrook RT(N), [facility] Camera Used: [employer] D-SPECT Image Protocol Protocol: Stress/Rest 1 [...] AM Dic (more content not included)... Normal [facility] Comment on above: Order Comment: Injur y/Trauma or Illness?:Illness/Other How long have you had these symptoms (acute/chronic)?:Unknown Reason for exam?:CP, CVA Type of Exam?:Unknown Additional signs and symptoms?:CP, CVA ECG 12 Leadon 09-09-2024 Atrial Rate [facility] P [facility] P-R Interval [facility] Q-T Interval [facility] Q-T Interval (corrected) [facility] QRS Duration [facility] QTC Calculation (Bezet) [facility] T [facility] CBC W/Diff, Automatedon 11-0 Absolute Lymph 1.51 X10 3/uL Normal 0.83-4.51 [facility] Comment on above: Performed By: #### L 501.9520, L506.0250, L502.0250, L501.5200, L3300.9910, L500.4050, L7400.3000, L503.0105, L503.6150, L503.6550, L503.6075, L100.0100, L506.0400 #### [facility] [address] [place], [place], [id number] Absolute Neut 3.3 X10 3/uL Normal 2.0-7.7 [facility] Comment on above: Performed By: #### L 501.9520, L506.0250, L502.0250, L501.5200, L3300.9910, L500.4050, L7400.3000, L503.0105, L503.6150, L503.6550, L503.6075, L100.0100, L506.0400 #### [facility] [address] [place], [place], [id number] (964) Basophils/100 WBC (Bld) 1.4 % High 0-1 [facility] Comment on above: Performed By: #### L 501.9520, L506.0250, L502.0250, L501.5200, L3300.9910, L500.4050, L7400.3000, L503.0105, L503.6150, L503.6550, L503.6075, L100.0100, L506.0400 #### [facility] [address] [place], [address] ([phone] Eosinophils/100 WBC (Bld) 3.9 % Normal 0-5 [facility] Comment on above: Performed By: #### L 501.9520, L506.0250, L502.0250, L501.5200, L3300.9910, L500.4050, L7400.3000, L503.0105, L503.6150, L503.6550, L503.6075, L100.0100, L506.0400 #### [facility] [address] [place], [address] Erythrocyte distribution width (RBC) [Ratio] 12.1 % Normal 11.6-14.6 [facility] Comment on above: Performed By: #### L 501.9520, L506.0250, L502.0250, L501.5200, L3300.9910, L500.4050, L7400.3000, L503.0105, L503.6150, L503.6550, L503.6075, L100.0100, L506.0400 #### [facility] [address] [place], [address] (030) Hematocrit (Bld) [Volume fraction] 35.0 % Low 40-54 [facility] Comment on above: Performed By: #### L 501.9520, L506.0250, L502.0250, L501.5200, L3300.9910, L500.4050, L7400.3000, L503.0105, L503.6150, L503.6550, L503.6075, L100.0100, L506.0400 #### [facility] [address] [facility] [place], [address] Hemoglobin (Bld) [Mass/Vol] 12.1 g/dL Low 13.0-16.5 [facility] Comment on above: Performed By: #### L 501.9520, L506.0250, L502.0250, L501.5200, L3300.9910, L500.4050, L7400.3000, L503.0105, L503.6150, L503.6550, L503.6075, L100.0100, L506.0400 #### [facility] [address] [place], [address] IG% 0.500 Normal 0.0-0.9 [facility] Comment on above: Result Comment: IG% - Immature Granulocytes (promyelocytes, myelocytes and metamyelocytes) > 1% indicates that a LEFT SHIFT is Present. Performed By: #### L 501.9520, L506.0250, L502.0250, L501.5200, L3300.9910, L500.4050, L7400.3000, L503.0105, L503.6150, L503.6550, L503.6075, L100.0100, L506.0400 #### [facility] [address] [facility] [place], [address] Lymphocytes/100 WBC (Bld) 27.0 % Normal 19-41 [facility] Comment on above: Performed By: #### L 501.9520, L506.0250, L502.0250, L501.5200, L3300.9910, L500.4050, L7400.3000, L503.0105, L503.6150, L503.6550, L503.6075, L100.0100, L506.0400 #### [facility] [address] [place], [address] MCH (RBC) [Entitic mass] 35.8 pg High 27.0-32.0 [facility] Comment on above: Performed By: #### L 501.9520, L506.0250, L502.0250, L501.5200, L3300.9910, L500.4050, L7400.3000, L503.0105, L503.6150, L503.6550, L503.6075, L100.0100, L506.0400 #### [facility] [address] [place], [address] MCHC (RBC) [Mass/Vol] 34.6 g/dL Normal 32-36 [facility] Comment on above: Performed By: #### L 501.9520, L506.0250, L502.0250, L501.5200, L3300.9910, L500.4050, L7400.3000, L503.0105, L503.6150, L503.6550, L503.6075, L100.0100, L506.0400 #### [facility] [address] [place], [address] MCV (RBC) [Entitic vol] 103.6 fL High 80-94 [facility] Comment on above: Performed By: #### L 501.9520, L506.0250, L502.0250, L501.5200, L3300.9910, L500.4050, L7400.3000, L503.0105, L503.6150, L503.6550, L503.6075, L100.0100, L506.0400 #### [facility] [address] [place], [address] Monocytes/100 WBC (Bld) 8.4 % Normal 0-10 [facility] Comment on above: Performed By: #### L 501.9520, L506.0250, L502.0250, L501.5200, L3300.9910, L500.4050, L7400.3000, L503.0105, L503.6150, L503.6550, L503.6075, L100.0100, L506.0400 #### [facility] [address] [place], [place], [id number] (543) Neutrophils/100 WBC (Bld) 58.8 % Normal 47-70 [facility] Comment on above: Performed By: #### L 501.9520, L506.0250, L502.0250, L501.5200, L3300.9910, L500.4050, L7400.3000, L503.0105, L503.6150, L503.6550, L503.6075, L100.0100, L506.0400 #### [facility] [address] [facility] [place], [place], [phone] Nucleated RBC (Bld) [#/Vol] 0 10*3/uL Normal 0-5 [facility] Comment on above: Performed By: #### L 501.9520, L506.0250, L502.0250, L501.5200, L3300.9910, L500.4050, L7400.3000, L503.0105, L503.6150, L503.6550, L503.6075, L100.0100, L506.0400 #### [facility] [address] [facility] [place], [place], [id number] Platelet mean volume (Bld) [Entitic vol] 12.2 fL High 6.2-12.0 [facility] Comment on above: Performed By: #### L 501.9520, L506.0250, L502.0250, L501.5200, L3300.9910, L500.4050, L7400.3000, L503.0105, L503.6150, L503.6550, L503.6075, L100.0100, L506.0400 #### [facility] [address] [place], [address] Platelets (Bld) [#/Vol] 220 10*3/uL Normal 150-450 [facility] Comment on above: Performed By: #### L 501.9520, L506.0250, L502.0250, L501.5200, L3300.9910, L500.4050, L7400.3000, L503.0105, L503.6150, L503.6550, L503.6075, L100.0100, L506.0400 #### [facility] [address] [place], [address] RBC (Bld) [#/Vol] 3.38 10*6/uL Low 4.6-6.2 [facility] Comment on above: Performed By: #### L 501.9520, L506.0250, L502.0250, L501.5200, L3300.9910, L500.4050, L7400.3000, L503.0105, L503.6150, L503.6550, L503.6075, L100.0100, L506.0400 #### [facility] [address] [place], [address] RDW SD 45.8 fl High 35.1-43.9 [facility] Comment on above: Performed By: #### L 501.9520, L506.0250, L502.0250, L501.5200, L3300.9910, L500.4050, L7400.3000, L503.0105, L503.6150, L503.6550, L503.6075, L100.0100, L506.0400 #### [facility] [address] [place], [address] WBC (Bld) [#/Vol] 5.6 10*3/uL Normal 4.4-11.0 [facility] Comment on above: Performed By: #### L 501.9520, L506.0250, L502.0250, L501.5200, L3300.9910, L500.4050, L7400.3000, L503.0105, L503.6150, L503.6550, L503.6075, L100.0100, L506.0400 #### [facility] [address] [place], [place], [id number] [facility] ilon 09-04-2024 Albumin [Mass/Vol] 3.3 g/dL Normal 3.2-5.0 [facility] Comment on above: Performed By: #### L 501.9520, L506.0250, L502.0250, L501.5200, L3300.9910, L500.4050, L7400.3000, L503.0105, L503.6150, L503.6550, L503.6075, L100.0100, L506.0400 #### [facility] [address] [place], [place], [id number] Albumin/Globulin [Mass ratio] 1.0 {ratio} Normal 0.9-2.4 [facility] Comment on above: Performed By: #### L 501.9520, L506.0250, L502.0250, L501.5200, L3300.9910, L500.4050, L7400.3000, L503.0105, L503.6150, L503.6550, L503.6075, L100.0100, L506.0400 #### [facility] [address] [place], [place], [id number] ALK P 37 U/L Low 45-117 [facility] Comment on above: Performed By: #### L 501.9520, L506.0250, L502.0250, L501.5200, L3300.9910, L500.4050, L7400.3000, L503.0105, L503.6150, L503.6550, L503.6075, L100.0100, L506.0400 #### [facility] [address] [place], [place], [address] ALT [Catalytic activity/Vol] 25 U/L Normal 16-61 [facility] Comment on above: Performed By: #### L 501.9520, L506.0250, L502.0250, L501.5200, L3300.9910, L500.4050, L7400.3000, L503.0105, L503.6150, L503.6550, L503.6075, L100.0100, L506.0400 #### [facility] [address] [place], [place], [phone] (501) AST [Catalytic activity/Vol] 24 U/L Normal 15-37 [facility] Comment on above: Result Comment: Slig ht Hemolysis, Result may be falsely increased. Performed By: #### L 501.9520, L506.0250, L502.0250, L501.5200, L3300.9910, L500.4050, L7400.3000, L503.0105, L503.6150, L503.6550, L503.6075, L100.0100, L506.0400 #### [facility] [address] [place], [place], [id number] Bilirubin [Mass/Vol] 0.40 mg/dL Normal 0.20-1.00 [facility] Comment on above: Result Comment: For patients on eltrombopag therapy, use of Dimension [place] TBIL is not recommended. Performed By: #### L 501.9520, L506.0250, L502.0250, L501.5200, L3300.9910, L500.4050, L7400.3000, L503.0105, L503.6150, L503.6550, L503.6075, L100.0100, L506.0400 #### [facility] [address] [place], [address] BUN/CRE 11.6 RATIO Normal 10-20 [facility] Comment on above: Performed By: #### L 501.9520, L506.0250, L502.0250, L501.5200, L3300.9910, L500.4050, L7400.3000, L503.0105, L503.6150, L503.6550, L503.6075, L100.0100, L506.0400 #### [facility] [address] [place], [address] CA,Total 9.0 mg/dL Normal 8.5-10.1 [facility] Comment on above: Performed By: #### L 501.9520, L506.0250, L502.0250, L501.5200, L3300.9910, L500.4050, L7400.3000, L503.0105, L503.6150, L503.6550, L503.6075, L100.0100, L506.0400 #### [facility] [address] [place], [address] Chloride [Moles/Vol] 103 mmol/L Normal 98-107 [facility] Comment on above: Performed By: #### L 501.9520, L506.0250, L502.0250, L501.5200, L3300.9910, L500.4050, L7400.3000, L503.0105, L503.6150, L503.6550, L503.6075, L100.0100, L506.0400 #### [facility] [address] [place], [address] CO2 [Moles/Vol] 25.0 mmol/L Normal 21.0-32.0 [facility] Comment on above: Performed By: #### L 501.9520, L506.0250, L502.0250, L501.5200, L3300.9910, L500.4050, L7400.3000, L503.0105, L503.6150, L503.6550, L503.6075, L100.0100, L506.0400 #### [facility] [address] [place], [address] Creatinine [Mass/Vol] 1.81 mg/dL High 0.70-1.30 [facility] Comment on above: Result Comment: The validity of the calculated GFR GFRAA in patients over 70 years has not been determined. Clinical correlation is essential. Performed By: #### L 501.9520, L506.0250, L502.0250, L501.5200, L3300.9910, L500.4050, L7400.3000, L503.0105, L503.6150, L503.6550, L503.6075, L100.0100, L506.0400 #### [facility] [address] [place], [address] EST GFR - AA 47 mL/min Low >60 [facility] Comment on above: Result Comment: Afri can Burkinan GFR Calc Performed By: #### L 501.9520, L506.0250, L502.0250, L501.5200, L3300.9910, L500.4050, L7400.3000, L503.0105, L503.6150, L503.6550, L503.6075, L100.0100, L506.0400 #### [facility] [address] [place], [address] GAP 5 Normal 5-15 [facility] Comment on above: Performed By: #### L 501.9520, L506.0250, L502.0250, L501.5200, L3300.9910, L500.4050, L7400.3000, L503.0105, L503.6150, L503.6550, L503.6075, L100.0100, L506.0400 #### [facility] [address] [place], [address] GFR/1.73 sq M.predicted among non-blacks MDRD (S/P/Bld) [Vol rate/Area] 39 mL/min/{1.73_m2} Low >60 [facility] Comment on above: Result Comment: Non- GFR Calc Performed By: #### L 501.9520, L506.0250, L502.0250, L501.5200, L3300.9910, L500.4050, L7400.3000, L503.0105, L503.6150, L503.6550, L503.6075, L100.0100, L506.0400 #### [facility] [address] [place], [place], [phone] ([phone]) Globulin (S) [Mass/Vol] 3.4 g/dL Normal 2.2-4.2 [facility] Comment on above: Performed By: #### L 501.9520, L506.0250, L502.0250, L501.5200, L3300.9910, L500.4050, L7400.3000, L503.0105, L503.6150, L503.6550, L503.6075, L100.0100, L506.0400 #### [facility] [address] [place], [place], [phone] ([phone] Glucose [Mass/Vol] 246 mg/dL High 74-106 [facility] Comment on above: Result Comment: Gluc ose result greater than or equal to 200 mg/dL suggests DIABETES MELLITUS per A.D.A. criteria. Performed By: #### L 501.9520, L506.0250, L502.0250, L501.5200, L3300.9910, L500.4050, L7400.3000, L503.0105, L503.6150, L503.6550, L503.6075, L100.0100, L506.0400 #### [facility] [address] [place], [place], [phone] (409) Potassium [Moles/Vol] 4.7 mmol/L Normal 3.5-5.1 [facility] Comment on above: Result Comment: Slig ht Hemolysis, Result may be falsely increased. Performed By: #### L 501.9520, L506.0250, L502.0250, L501.5200, L3300.9910, L500.4050, L7400.3000, L503.0105, L503.6150, L503.6550, L503.6075, L100.0100, L506.0400 #### [facility] [address] [place], [address] Sodium [Moles/Vol] 133 mmol/L Low 136-145 [facility] Comment on above: Performed By: #### L 501.9520, L506.0250, L502.0250, L501.5200, L3300.9910, L500.4050, L7400.3000, L503.0105, L503.6150, L503.6550, L503.6075, L100.0100, L506.0400 #### [facility] [address] [place], [address] T PROT 6.7 g/dL Normal 6.4-8.2 [facility] Comment on above: Performed By: #### L 501.9520, L506.0250, L502.0250, L501.5200, L3300.9910, L500.4050, L7400.3000, L503.0105, L503.6150, L503.6550, L503.6075, L100.0100, L506.0400 #### [facility] [address] [place], [address] Urea nitrogen [Mass/Vol] 21 mg/dL High 7-18 [facility] Comment on above: Performed By: #### L 501.9520, L506.0250, L502.0250, L501.5200, L3300.9910, L500.4050, L7400.3000, L503.0105, L503.6150, L503.6550, L503.6075, L100.0100, L506.0400 #### [facility] [address] [place], [place], [address] Hemoglobin A1con 09-04-2024 HbA1c (Bld) [Mass fraction] 7.5 % High 3.8-5.6 [facility] Comment on above: Result Comment: Norm al < 5.7 % Prediabetic 5.7 - 6.4 % Diabetic >or= 6.5 % Please note range changes. Performed By: #### L 501.9520, L506.0250, L502.0250, L501.5200, L3300.9910, L500.4050, L7400.3000, L503.0105, L503.6150, L503.6550, L503.6075, L100.0100, L506.0400 #### [facility] [address], [place], [address] T4 Free Directon 09-04-2024 T4 FREE DIRECT 0.89 ng/dL Normal 0.76-1.46 [facility] Comment on above: Performed By: #### L 501.9520, L506.0250, L502.0250, L501.5200, L3300.9910, L500.4050, L7400.3000, L503.0105, L503.6150, L503.6550, L503.6075, L100.0100, L506.0400 #### [facility] [address] [place], [place], [address] Thyroid Stim Hormone (TSH)on 09-04-2024 TSH 1.780 uIU/mL Normal 0.358-3.740 [facility] Comment on above: Performed By: #### L 501.9520, L506.0250, L502.0250, L501.5200, L3300.9910, L500.4050, L7400.3000, L503.0105, L503.6150, L503.6550, L503.6075, L100.0100, L506.0400 #### [facility] [address] [place], [address] CBC W Auto Differential pane l (Bld)on 08-05-2024 Basophils (Bld) [#/Vol] 0.10 x10*3/uL Normal 0.00-0.10 [facility] Comment on above: Performed By: #### 5 7021-8 #### LAYLA MENDOZA ([id number]) [facility] ([facility]) [address] [place] [address] 71906 Basophils/100 WBC (Bld) 1.4 % Normal 0.0-2.0 [facility] Comment on above: Performed By: #### 5 7021-8 #### LAYLA MENDOZA ([id number]) [facility] ([facility]) [address] [place] [address] 24573 Eosinophils (Bld) [#/Vol] 0.38 x10*3/uL Normal 0.00-0.40 [facility] Comment on above: Performed By: #### 5 7021-8 #### LAYLA MENDOZA ([id number]) [facility] ([facility]) [address] [place] [address] 42612 Eosinophils/100 WBC (Bld) 5.4 % Normal 0.0-6.0 [facility] Comment on above: Performed By: #### 5 7021-8 #### LAYLA MENDOZA ([id number]) [facility] ([facility]) [address] [place] [address] 81818 Erythrocyte distribution width (RBC) [Ratio] 12.8 % Normal 11.5-14.5 [facility] Comment on above: Performed By: #### 5 7021-8 #### LAYLA MENDOZA ([id number]) [facility] ([facility]) [address] [place] [address] 16185 Hematocrit (Bld) [Volume fraction] 40.5 % Low 41.0-52.0 [facility] Comment on above: Performed By: #### 5 7021-8 #### LAYLA MENDOZA ([id number]) [facility] ([facility]) [address] [place] [address] 43542 Hemoglobin (Bld) [Mass/Vol] 13.8 g/dL Normal 13.5-17.5 [facility] Comment on above: Performed By: #### 5 7021-8 #### LAYLA MENDOZA ([id number]) [facility] ([facility]) [address] [place] [address] 38561 Immature granulocytes (Bld) [#/Vol] 0.04 x10*3/uL Normal 0.00-0.50 [facility] Comment on above: Performed By: #### 5 7021-8 #### LAYLA MENDOZA ([id number]) [facility] ([facility]) [address] [place] [address] 55438 Immature granulocytes/100 WBC (Bld) 0.6 % Normal 0.0-0.9 [facility] Comment on above: Result Comment: Yaquelin ture Granulocyte Count (IG) includes promyelocytes, myelocytes and metamyelocytes but does not include bands. Percent differential counts (%) should be interpreted in the context of the absolute cell counts (cells/UL). Performed By: #### 5 7021-8 #### LAYLA MENDOZA ([id number]) [facility] ([facility]) [address] [place] [address] 30453 Lymphocytes (Bld) [#/Vol] 2.22 x10*3/uL Normal 0.80-3.00 [facility] Comment on above: Performed By: #### 5 7021-8 #### LAYLA MENDOZA ([id number]) [facility] ([facility]) [address] [place] [address] 08497 Lymphocytes/100 WBC (Bld) 31.5 % Normal 13.0-44.0 [facility] Comment on above: Performed By: #### 5 7021-8 #### LAYLA MENDOZA ([id number]) [facility] ([facility]) [address] [place] [address] 05166 MCH (RBC) [Entitic mass] 35.8 pg High 26.0-34.0 [facility] Comment on above: Performed By: #### 5 7021-8 #### LAYLA MENDOZA ([id number]) [facility] ([facility]) [address] [place] [address] 01562 MCHC (RBC) [Mass/Vol] 34.1 g/dL Normal 32.0-36.0 [facility] Comment on above: Performed By: #### 5 7021-8 #### LAYLA MENDOZA ([id number]) [facility] ([facility]) [address] [place] [address] 54479 MCV (RBC) [Entitic vol] 105 fL High 80-100 [facility] Comment on above: Performed By: #### 5 7021-8 #### LAYLA MENDOZA ([id number]) [facility] ([facility]) [address] [place] [address] 18830 Monocytes (Bld) [#/Vol] 0.48 x10*3/uL Normal 0.05-0.80 [facility] Comment on above: Performed By: #### 5 7021-8 #### LAYLA MENDOZA ([id number]) [facility] ([facility]) [address] [place] [address] 57424 Monocytes/100 WBC (Bld) 6.8 % Normal 2.0-10.0 [facility] Comment on above: Performed By: #### 5 7021-8 #### LAYLA MENDOZA ([id number]) [facility] ([facility]) [address] [place] [address] 66265 Neutrophils (Bld) [#/Vol] 3.82 x10*3/uL Normal 1.60-5.50 [facility] Comment on above: Result Comment: Perc ent differential counts (%) should be interpreted in the context of the absolute cell counts (cells/uL). Performed By: #### 5 7021-8 #### LALYA MENDOZA ([id number]) [facility] ([facility]) [address] [place] [address] 15540 Neutrophils/100 WBC (Bld) 54.3 % Normal 40.0-80.0 [facility] Comment on above: Performed By: #### 5 7021-8 #### LAYLA MENDOZA ([id number]) [facility] ([facility]) [address] [place] [address] 84282 Nucleated RBC/100 WBC (Bld) [Ratio] 0.0 /100 WBCs Normal 0.0-0.0 [facility] Comment on above: Performed By: #### 5 7021-8 #### LAYLA MENDOZA ([id number]) [facility] ([facility]) [address] [place] [address] 10423 Platelets (Bld) [#/Vol] 298 x10*3/uL Normal 150-450 [facility] Comment on above: Result Comment: Plat elet count verified by smear review. Performed By: #### 5 7021-8 #### LAYLA MENDOZA ([id number]) [facility] ([facility]) [address] [place] [address] 09715 RBC (Bld) [#/Vol] 3.86 x10*6/uL Low 4.50-5.90 [facility] Comment on above: Performed By: #### 5 7021-8 #### LAYLA MENDOZA ([id number]) [facility] ([facility]) [address] [place] [address] 72692 WBC (Bld) [#/Vol] 7.0 x10*3/uL Normal 4.4-11.3 [facility] Comment on above: Performed By: #### 5 7021-8 #### LAYLA MENDOZA ([id number]) [facility] ([facility]) [address] [place] [address] 31013 Comprehensive metabolic 2000 panelon 08-05-2024 Albumin BCP dye [Mass/Vol] 4.2 g/dL Normal 3.4-5.0 [facility] Comment on above: Performed By: #### 2 4323-8 #### LAYLA MENDOZA ([id number]) [facility] ([facility]) [address] [place] [address] 02409 ALP [Catalytic activity/Vol] 37 U/L Normal 33-136 [facility] Comment on above: Performed By: #### 2 432-8 #### LAYLA MENDOZA ([id number]) [facility] ([facility]) [address] [place] [address] ALT With P-5'-P [Catalytic activity/Vol] 11 U/L Normal 10-52 [facility] Comment on above: Result Comment: Shey ents treated with Sulfasalazine may generate falsely decreased results for ALT. Performed By: #### 2 4323-8 #### LAYLA MENDOZA ([id number]) [facility] ([facility]) [address] [place] [address] Anion gap [Moles/Vol] 12 mmol/L Normal 10-20 [facility] Comment on above: Performed By: #### 2 4322-8 #### LAYLA MENDOZA ([id number]) [facility] ([facility]) [address] [place] [address] 29268 AST With P-5'-P [Catalytic activity/Vol] 17 U/L Normal 9-39 [facility] Comment on above: Performed By: #### 2 4322-8 #### LAYLA MENDOZA ([id number]) [facility] ([facility]) [address] [place] [address] 00884 Bilirubin [Mass/Vol] 0.5 mg/dL Normal 0.0-1.2 [facility] Comment on above: Performed By: #### 2 4322-8 #### LAYLA MENDOZA ([id number]) [facility] ([facility]) [address] [place] [address] 14477 Calcium [Mass/Vol] 9.7 mg/dL Normal 8.6-10.3 [facility] Comment on above: Performed By: #### 2 4322-8 #### LAYLA MENDOZA ([id number]) [facility] ([facility]) [address] [place] [address] 23003 Chloride [Moles/Vol] 100 mmol/L Normal 98-107 [facility] Comment on above: Performed By: #### 2 3-8 #### LAYLA MENDOZA ([id number]) [facility] ([facility]) [address] [place] [address] CO2 [Moles/Vol] 27 mmol/L Normal 21-32 [facility] Comment on above: Performed By: #### 2 4323-8 #### LAYLA MENDOZA ([id number]) [facility] ([facility]) [address] [place] [address] Creatinine [Mass/Vol] 1.55 mg/dL High 0.50-1.30 [facility] Comment on above: Performed By: #### 2 4323-8 #### LAYLA MENDOZA ([id number]) [facility] ([facility]) [address] [place] [address] 39217 Glomerular filtration rate/1.73 sq M.predicted 46 mL/min/1.73m*2 Low >60 [facility] Comment on above: Result Comment: Calc ulations of estimated GFR are performed using the 2020 CKD-EPI Study Refit equation without the race variable for the IDMS-Traceable creatinine methods. https://jasn.asnjournals.org/content/early//ASN.2020 751312 Performed By: #### 2 4323-8 #### LAYLA MENDOZA ([id number]) [facility] ([facility]) [facility] [place] [address] Glucose [Mass/Vol] 164 mg/dL High 74-99 [facility] Comment on above: Performed By: #### 2 4323-8 #### LAYLA MENDOZA ([id number]) [facility] ([facility]) [facility] [place] [address] Potassium [Moles/Vol] 4.1 mmol/L Normal 3.5-5.3 [facility] Comment on above: Performed By: #### 2 4323-8 #### LAYLA MENDOZA ([id number]) [facility] ([facility]) [address] [place] [address] Protein [Mass/Vol] 7.3 g/dL Normal 6.4-8.2 [facility] Comment on above: Performed By: #### 2 4323-8 #### LAYLA MENDOZA ([id number]) [facility] ([facility]) [address] [place] [address] Sodium [Moles/Vol] 135 mmol/L Low 136-145 [facility] Comment on above: Performed By: #### 2 4323-8 #### LAYLA MENDOZA ([id number]) [facility] ([facility]) [address] [place], [place] [id number] Urea nitrogen [Mass/Vol] 20 mg/dL Normal 6-23 [facility] Comment on above: Performed By: #### 2 4323-8 #### LAYLA MENDOZA ([id number]) [facility] ([facility]) [address] [place] [address] HbA1c (Bld) [Mass fraction]o n 08-05-2024 Average glucose Estimated from glycated hemoglobin (Bld) [Mass/Vol] 174 mg/dL Normal Not Established [facility] Comment on above: Order Comment: Diagn osis of Diabetes-Adults Non-Diabetic: < or = 5.6% Increased risk for developing diabetes: 5.7-6.4% Diagnostic of diabetes: > or = 6.5% Performed By: #### 4 548-4 #### MANOHAR Duenas ([id number]) [facility] ([facility]) [address] [place] [address] 99792 Hemoglobin A1c/Hemoglobin.to ada 08-05-2024 HbA1c (Bld) [Mass fraction] 7.7 % High See comment [facility] Comment on above: Order Comment: Diagn osis of Diabetes-Adults Non-Diabetic: < or = 5.6% Increased risk for developing diabetes: 5.7-6.4% Diagnostic of diabetes: > or = 6.5% Performed By: #### 4 548-4 #### MANOHAR Duenas ([id number]) [facility] ([facility]) [address] [place] [address] 09320 Magnesiumon 08-05-2024 Magnesium [Mass/Vol] 1.63 mg/dL Normal 1.60-2.40 [facility] Comment on above: Performed By: #### 1 9123-9 #### LAYLA EMNDOZA ([id number]) [facility] ([facility]) [address] [place] [address] 23559 TSH WITH REFLEX TO FREE T4 I F ABNORMALon 08-05-2024 TSH Qn 2.72 m[IU]/L Normal 0.44-3.98 [facility] Comment on above: Order Comment: TSH t esting is performed using different testing methodology at [facility] than at other [facility]. Direct result comparisons should only be made within the same method. Performed By: #### T HYDS #### LAYLA MENDOZA ([id number]) [facility] ([facility]) [address] [place] [address] [id number] CBC W Auto Differential pane l (Bld)on 07-09-2024 Basophils (Bld) [#/Vol] 0.10 x10*3/uL Normal 0.00-0.10 [facility] Comment on above: Performed By: #### 5 7021-8 #### LAYLA MENDOZA ([id number]) [facility] ([facility]) [address] [place] [address] [id number] Basophils/100 WBC (Bld) 1.6 % Normal 0.0-2.0 [facility] Comment on above: Performed By: #### 5 7021-8 #### LAYLA MENDOZA ([id number]) [facility] ([facility]) [address] [place] [address] [id number] Eosinophils (Bld) [#/Vol] 0.26 x10*3/uL Normal 0.00-0.40 [facility] Comment on above: Performed By: #### 5 7021-8 #### LAYLA MENDOZA ([id number]) [facility] ([facility]) [address] [place] [address] 06800 Eosinophils/100 WBC (Bld) 4.2 % Normal 0.0-6.0 [facility] Comment on above: Performed By: #### 5 7021-8 #### LAYLA MENDOZA ([id number]) [facility] ([facility]) [address] [place] [address] [id number] Erythrocyte distribution width (RBC) [Ratio] 13.3 % Normal 11.5-14.5 [facility] Comment on above: Performed By: #### 5 7021-8 #### LAYLA MENDOZA ([id number]) [facility] ([facility]) [address] [place] [address] 21035 Hematocrit (Bld) [Volume fraction] 38.5 % Low 41.0-52.0 [facility] Comment on above: Performed By: #### 5 7021-8 #### LAYLA MENDOZA ([id number]) [facility] ([facility]) [address] [place] [address] Hemoglobin (Bld) [Mass/Vol] 12.4 g/dL Low 13.5-17.5 [facility] Comment on above: Performed By: #### 5 7021-8 #### LAYLA MENDOZA ([id number]) [facility] ([facility]) [address] [place], [place] [id number] Immature granulocytes (Bld) [#/Vol] 0.04 x10*3/uL Normal 0.00-0.50 [facility] Comment on above: Performed By: #### 5 7021-8 #### LAYLA MENDOZA ([id number]) [facility] ([facility]) [address] [place], [place] [id number] Immature granulocytes/100 WBC (Bld) 0.7 % Normal 0.0-0.9 [facility] Comment on above: Result Comment: Yaquelin ture Granulocyte Count (IG) includes promyelocytes, myelocytes and metamyelocytes but does not include bands. Percent differential counts (%) should be interpreted in the context of the absolute cell counts (cells/UL). Performed By: #### 5 7021-8 #### LAYLA MENDOZA ([id number]) [facility] ([facility]) [address] [place] [address] 31376 Lymphocytes (Bld) [#/Vol] 2.37 x10*3/uL Normal 0.80-3.00 [facility] Comment on above: Performed By: #### 5 7021-8 #### LAYLA MENDOZA ([id number]) [facility] ([facility]) [facility] [place] [address] Lymphocytes/100 WBC (Bld) 38.5 % Normal 13.0-44.0 [facility] Comment on above: Performed By: #### 5 7021-8 #### LAYLA MENDOZA ([id number]) [facility] ([facility]) [address] [place] [address] 93712 MCH (RBC) [Entitic mass] 35.3 pg High 26.0-34.0 [facility] Comment on above: Performed By: #### 5 7021-8 #### LAYLA MENDOZA ([id number]) [facility] ([facility]) [address] [place] [address] 86107 MCHC (RBC) [Mass/Vol] 32.2 g/dL Normal 32.0-36.0 [facility] Comment on above: Performed By: #### 5 7021-8 #### LAYLA MENDOZA ([id number]) [facility] ([facility]) [address] [place] [address] 53738 MCV (RBC) [Entitic vol] 110 fL High 80-100 [facility] Comment on above: Performed By: #### 5 7021-8 #### LAYLA MENDOZA ([id number]) [facility] ([facility]) [address] [place] [address] 15479 Monocytes (Bld) [#/Vol] 0.47 x10*3/uL Normal 0.05-0.80 [facility] Comment on above: Performed By: #### 5 7021-8 #### LAYLA MENDOZA ([id number]) [facility] ([facility]) [address] [place] [address] 24153 Monocytes/100 WBC (Bld) 7.6 % Normal 2.0-10.0 [facility] Comment on above: Performed By: #### 5 7021-8 #### LAYLA MENDOZA ([id number]) [facility] ([facility]) [address] [place] [address] 99321 Neutrophils (Bld) [#/Vol] 2.91 x10*3/uL Normal 1.60-5.50 [facility] Comment on above: Result Comment: Perc ent differential counts (%) should be interpreted in the context of the absolute cell counts (cells/uL). Performed By: #### 5 7021-8 #### LAYLA MENDOZA ([id number]) [facility] ([facility]) [address] [place] [address] 44723 Neutrophils/100 WBC (Bld) 47.4 % Normal 40.0-80.0 [facility] Comment on above: Performed By: #### 5 7021-8 #### LAYLA MENDOZA ([id number]) [facility] ([facility]) [address] [place] [address] 95959 Nucleated RBC/100 WBC (Bld) [Ratio] 0.0 /100 WBCs Normal 0.0-0.0 [facility] Comment on above: Performed By: #### 5 7021-8 #### LAYLA MENDOZA ([id number]) [facility] ([facility]) [address] [place] [address] 04200 Platelets (Bld) [#/Vol] 53 x10*3/uL Low 150-450 [facility] Comment on above: Performed By: #### 5 7021-8 #### LAYLA MENDOZA ([id number]) [facility] ([facility]) [address] [place] [address] 16898 RBC (Bld) [#/Vol] 3.51 x10*6/uL Low 4.50-5.90 [facility] Comment on above: Performed By: #### 5 7021-8 #### LAYLA MENDOZA ([id number]) [facility] ([facility]) [address] [place] [address] 27375 WBC (Bld) [#/Vol] 6.2 x10*3/uL Normal 4.4-11.3 [facility] Comment on above: Performed By: #### 5 7021-8 #### LAYLA MENDOZA ([id number]) [facility] ([facility]) [address] [place] [address] 49362 Cobalaminson 07-09-2024 Cobalamin (Vitamin B12) [Mass/Vol] 289 pg/mL Normal 211-911 [facility] Comment on above: Performed By: #### 2 132-9 #### LAYLA MENDOZA ([id number]) [facility] ([facility]) [facility] [place] [address] Ferritinon 07-09-2024 Ferritin [Mass/Vol] 331 ng/mL High 20-300 [facility] Comment on above: Performed By: #### 2 276-4 #### LAYLA MENDOZA ([id number]) [facility] ([facility]) [address] [place] [address] 80857 Folateon 07-09-2024 Folate [Mass/Vol] 3.5 ng/mL Low >5.0 [facility] Comment on above: Order Comment: Low < 3.4 Borderline 3.4-5.0 Normal >5.0 Patients receiving more than 5 mg/day of biotin may have interference in test results. A sample should be taken no sooner than eight hours after previous dose. Contact the testing laboratory for additional information. Performed By: #### 2 284-8 #### LAYLA MENDOZA ([id number]) [facility] ([facility]) [address] [place] [address] 56570 Iron and Iron binding capaci ty panelon 07-09-2024 Iron [Mass/Vol] 110 ug/dL Normal 35-150 [facility] Comment on above: Performed By: #### 5 0190-8 #### LAYLA MENDOZA ([id number]) [facility] ([facility]) [address] [place] [address] 01894 Iron binding capacity [Mass/Vol] 397 ug/dL Normal 240-445 [facility] Comment on above: Performed By: #### 5 0190-8 #### LAYLA MENDOZA ([id number]) [facility] ([facility]) [address] [place] [address] 94336 Iron binding capacity.unsaturated [Mass/Vol] 287 ug/dL Normal 110-370 [facility] Comment on above: Performed By: #### 5 0190-8 #### LAYLA MENDOZA ([id number]) [facility] ([facility]) [address] [place] [address] Iron saturation [Mass fraction] 28 % Normal 25-45 [facility] Comment on above: Performed By: #### 5 0190-8 #### LAYLA MENDOZA ([id number]) [facility] ([facility]) [address] [place] [address] Methylmalonateon 07-09-2024 Methylmalonate [Moles/Vol] 0.24 umol/L Normal 0.00-0.40 [facility] Comment on above: Result Comment: INTE RPRETIVE INFORMATION: MMA Serum/Plasma, Vitamin B12 Status This test was developed and its performance characteristics determined by [facility]. It has not been cleared or approved by the [place] Food and Drug Administration. This test was performed in a CLIA certified laboratory and is intended for clinical purposes. Performed By: [facility] [address] [place] [address] Director Of Gift Planning: Eric Humphrey MD, PhD CLIA Number: [id number] Performed By: #### 4 548-4 #### LAYLA MENDOZA ([id number]) [facility] ([facility]) [facility] [place] [address] PROTEIN / CREATININE RATIO, URINEon 06-27-2024 CREATININE,UR 152.0 mg/dL Normal [facility] Comment on above: Performed By: #### 4 7136 #### [facility] [address] [place], [place] [address] Eric Moser M.D. [id number] Protein (U) [Mass/Vol] 52.5 mg/dL Normal [facility] Comment on above: Performed By: #### 4 7136 #### [facility] [address] [place], [place] [address] Eric Moser M.D. [id number] PROTEIN CREATININE RATIO 0.3 ratio High 0.0-0.2 [facility] Comment on above: Performed By: #### 4 7136 #### [facility] [address] [place], [place] [address] Eric Moser M.D. [id number] PTH INTACT ([facility] )on 06-27-2024 Calcium [Mass/Vol] 9.8 mg/dL Normal 8.4-10.2 [facility] Comment on above: Performed By: #### 4 6413 #### LAB [address] [place] [address] Eric Moser M.D. [id number] Order Comment: [facility] has implemented the eGFR calculation approach that does not have a coefficient for race that conforms to the NKF-ASN Task Force Recommendations. Performed By: #### 4 6449 #### LAB [address] [place] [address] Eric Moser M.D. [id number] PTH INTACT 15.7 pg/mL Normal 12.0-65.0 [facility] Comment on above: Performed By: #### 4 6413 #### [facility] [address] [place] [address] Eric Moser M.D. [id number] RENAL FUNCTION PANELon 06-27 Albumin [Mass/Vol] 3.9 g/dL Normal 3.2-5.2 [facility] Comment on above: Order Comment: [facility] has implemented the eGFR calculation approach that does not have a coefficient for race that conforms to the NKF-ASN Task Force Recommendations. Performed By: #### 4 6449 #### [facility] [address] [place] [address] Eric Moser M.D. [id number] Anion gap [Moles/Vol] 16 mmol/L Normal 10-20 [facility] Comment on above: Order Comment: [facility] has implemented the eGFR calculation approach that does not have a coefficient for race that conforms to the NKF-ASN Task Force Recommendations. Performed By: #### 4 6449 #### [facility] [address] [place] [address] Eric Moser M.D. [id number] Chloride [Moles/Vol] 102 mmol/L Normal 98-108 [facility] Comment on above: Order Comment: [facility] has implemented the eGFR calculation approach that does not have a coefficient for race that conforms to the NKF-ASN Task Force Recommendations. Performed By: #### 4 6449 #### [facility] [address] [place] [address] Eric Moser M.D. [id number] Creatinine [Mass/Vol] 1.46 mg/dL High 0.80-1.30 [facility] Comment on above: Order Comment: [facility] has implemented the eGFR calculation approach that does not have a coefficient for race that conforms to the NKF-ASN Task Force Recommendations. Performed By: #### 4 6449 #### [facility] [address] [place] [address] Eric Moser M.D. [id number] EGFR 50 mL/min/1.73 m2 Low >=60 [facility] Comment on above: Order Comment: [facility] has implemented the eGFR calculation approach that does not have a coefficient for race that conforms to the NKF-ASN Task Force Recommendations. Result Comment: Telma mated GFR was calculated using the 2020 CKD-EPI creatinine equation. Performed By: #### 4 6449 #### [facility] [address] [place] [address] Eric Moser M.D. [id number] Glucose [Mass/Vol] 178 mg/dL High 65-99 [facility] Comment on above: Order Comment: [facility] has implemented the eGFR calculation approach that does not have a coefficient for race that conforms to the NKF-ASN Task Force Recommendations. Performed By: #### 4 6449 #### [facility] [address] [place] [address] Eric Moser M.D. [id number] HCO3 (Bld) [Moles/Vol] 25 mmol/L Normal 21-32 [facility] Comment on above: Order Comment: [facility] has implemented the eGFR calculation approach that does not have a coefficient for race that conforms to the NKF-ASN Task Force Recommendations. Performed By: #### 4 6449 #### [facility] [address] [place] [address] Eric Moser M.D. [id number] Phosphate [Mass/Vol] 2.7 mg/dL Normal 2.3-3.7 [facility] Comment on above: Order Comment: [facility] has implemented the eGFR calculation approach that does not have a coefficient for race that conforms to the NKF-ASN Task Force Recommendations. Performed By: #### 4 6449 #### LAB [address] [place] [id number] Eric Moser M.D. [id number] Potassium [Moles/Vol] 5.0 mmol/L Normal 3.5-5.1 [facility] Comment on above: Order Comment: [facility] has implemented the eGFR calculation approach that does not have a coefficient for race that conforms to the NKF-ASN Task Force Recommendations. Performed By: #### 4 6449 #### [facility] [address] [place], [place] [address] Eric Moser M.D. [id number] Sodium [Moles/Vol] 138 mmol/L Normal 135-145 [facility] Comment on above: Order Comment: [facility] has implemented the eGFR calculation approach that does not have a coefficient for race that conforms to the NKF-ASN Task Force Recommendations. Performed By: #### 4 6449 #### LAB [address] [place], [place] [address] Eric Moser M.D. [id number] Urea nitrogen [Mass/Vol] 13 mg/dL Normal 8-25 [facility] Comment on above: Order Comment: [facility] has implemented the eGFR calculation approach that does not have a coefficient for race that conforms to the NKF-ASN Task Force Recommendations. Performed By: #### 4 6449 #### LAB [address] [place] [id number] Eric Moser M.D. [id number] Urea nitrogen/Creatinine [Mass ratio] 8.9 mg/mg Low 10.0-20.0 [facility] Comment on above: Order Comment: [facility] has implemented the eGFR calculation approach that does not have a coefficient for race that conforms to the NKF-ASN Task Force Recommendations. Performed By: #### 4 6449 #### [facility] [address] [place] [address] Eric Moser M.D. [id number] WOUND AEROBIC CULTUREon 04-29 WOUND AEROBIC CULTURE AEROBIC CULTURE Few Growth Normal Skin [place] GRAM STAIN RESULT No Organisms Seen Few WBC Many RBC Normal [facility] Comment on above: Performed By: #### 4 4060 #### [facility] [address] [place] [address] Bob Curran M.D. [id number] WOUND ANAEROBIC CULTUREon WOUND ANAEROBIC CULTURE ANAEROBE CULTURE No Anaerobic Growth at 5 Days Normal [facility] Comment on above: Performed By: #### 4 4287 #### [facility] [address] [place] [address] 91380 Bob Curran M.D. [id number] XR ORTHO FOOT RIGHTon 2023 XR ORTHO FOOT RIGHT 3 views of the right foot reviewed today AP MO and lateral. No acute fracture or dislocation of note. No evidence of cortical lysis or subcutaneous emphysema. Stable x-ray. Dictated by: BHUMIKA LIN on [place] May 19, 2024 10:27:10 AM EDT Transcribed by: BHUMIKA LIN on [place] May 19, 2024 10:27:10 AM EDT Finalized by: BHUMIKA LIN on [place] May 19, 2024 10:27:10 AM EDT Normal [facility] Comment on above: Order Comment: Injur y/Trauma or Illness?:Illness/Other How long have you had these symptoms (acute/chronic)?:Unknown Reason for exam?:Right great toe History of cancer?:Unknown Surgeries, chemotherapy, or radiation?:Unknown Type of Exam?:Initial Additional signs and symptoms?:Right great toe CBC W Auto Differential pane l (Bld)on 04-25-2024 Basophils (Bld) [#/Vol] 0.10 x10*3/uL Normal 0.00-0.10 [facility] Comment on above: Performed By: #### 5 7021-8 #### RICH REJI ([id number]) [facility] ([facility]) [address] [place] [address] 62514 Basophils/100 WBC (Bld) 1.2 % Normal 0.0-2.0 [facility] Comment on above: Performed By: #### 5 7021-8 #### LAYLA MENDOZA ([id number]) [facility] ([facility]) [address] [place] [address] 35653 Eosinophils (Bld) [#/Vol] 0.36 x10*3/uL Normal 0.00-0.40 [facility] Comment on above: Performed By: #### 5 7021-8 #### LAYLA MENDOZA ([id number]) [facility] ([facility]) [address] [place] [address] 47491 Eosinophils/100 WBC (Bld) 4.4 % Normal 0.0-6.0 [facility] Comment on above: Performed By: #### 5 7021-8 #### LAYLA MENDOZA ([id number]) [facility] ([facility]) [address] [place] [address] 80860 Erythrocyte distribution width (RBC) [Ratio] 14.0 % Normal 11.5-14.5 [facility] Comment on above: Performed By: #### 5 7021-8 #### LAYLA MENDOZA ([id number]) [facility] ([facility]) [address] [place] [address] 50164 Hematocrit (Bld) [Volume fraction] 36.8 % Low 41.0-52.0 [facility] Comment on above: Performed By: #### 5 7021-8 #### LAYLA MENDOZA ([id number]) [facility] ([facility]) [address] [place] [address] 14915 Hemoglobin (Bld) [Mass/Vol] 12.2 g/dL Low 13.5-17.5 [facility] Comment on above: Performed By: #### 5 7021-8 #### LAYLA MENDOZA ([id number]) [facility] ([facility]) [address] [place] [address] 74167 Immature granulocytes (Bld) [#/Vol] 0.02 x10*3/uL Normal 0.00-0.50 [facility] Comment on above: Performed By: #### 5 7021-8 #### LAYLA MENDOZA ([id number]) [facility] ([facility]) [address] [place] [address] 09690 Immature granulocytes/100 WBC (Bld) 0.2 % Normal 0.0-0.9 [facility] Comment on above: Result Comment: Yaquelin ture Granulocyte Count (IG) includes promyelocytes, myelocytes and metamyelocytes but does not include bands. Percent differential counts (%) should be interpreted in the context of the absolute cell counts (cells/UL). Performed By: #### 5 7021-8 #### LAYLA MENDOZA ([id number]) [facility] ([facility]) [address] [place] [address] Lymphocytes (Bld) [#/Vol] 2.88 x10*3/uL Normal 0.80-3.00 [facility] Comment on above: Performed By: #### 5 7021-8 #### LAYLA MENDOZA ([id number]) [facility] ([facility]) [address] [place] [address] 31906 Lymphocytes/100 WBC (Bld) 35.3 % Normal 13.0-44.0 [facility] Comment on above: Performed By: #### 5 7021-8 #### LAYLA MENDOZA ([id number]) [facility] ([facility]) [address] [place] [address] 73970 MCH (RBC) [Entitic mass] 35.0 pg High 26.0-34.0 [facility] Comment on above: Performed By: #### 5 7021-8 #### LAYLA MENDOZA ([id number]) [facility] ([facility]) [address] [place] [address] 69206 MCHC (RBC) [Mass/Vol] 33.2 g/dL Normal 32.0-36.0 [facility] Comment on above: Performed By: #### 5 7021-8 #### LAYLA MENDOZA ([id number]) [facility] ([facility]) [address] [place] [address] 85013 MCV (RBC) [Entitic vol] 105 fL High 80-100 [facility] Comment on above: Performed By: #### 5 7021-8 #### LAYLA MENDOZA ([id number]) [facility] ([facility]) [address] [place] [address] 68364 Monocytes (Bld) [#/Vol] 0.79 x10*3/uL Normal 0.05-0.80 [facility] Comment on above: Performed By: #### 5 7021-8 #### LAYLA MENDOZA ([id number]) [facility] ([facility]) [address] [place] [address] 73964 Monocytes/100 WBC (Bld) 9.7 % Normal 2.0-10.0 [facility] Comment on above: Performed By: #### 5 7021-8 #### LAYLA MENDOZA ([id number]) [facility] ([facility]) [address] [place] [address] 08209 Neutrophils (Bld) [#/Vol] 4.01 x10*3/uL Normal 1.60-5.50 [facility] Comment on above: Result Comment: Perc ent differential counts (%) should be interpreted in the context of the absolute cell counts (cells/uL). Performed By: #### 5 7021-8 #### LAYLA MENDOZA ([id number]) [facility] ([facility]) [address] [place] [address] 70249 Neutrophils/100 WBC (Bld) 49.2 % Normal 40.0-80.0 [facility] Comment on above: Performed By: #### 5 7021-8 #### LAYLA MENDOZA ([id number]) [facility] ([facility]) [address] [place] [address] 70090 Nucleated RBC/100 WBC (Bld) [Ratio] 0.0 /100 WBCs Normal 0.0-0.0 [facility] Comment on above: Performed By: #### 5 7021-8 #### LAYLA MENDOZA ([id number]) [facility] ([facility]) [address] [place] [address] 55649 Platelets (Bld) [#/Vol] 282 x10*3/uL Normal 150-450 [facility] Comment on above: Performed By: #### 5 7021-8 #### LAYLA MENDOZA ([id number]) [facility] ([facility]) [address] [place] [address] RBC (Bld) [#/Vol] 3.49 x10*6/uL Low 4.50-5.90 [facility] Comment on above: Performed By: #### 5 7021-8 #### LAYLA MENDOZA ([id number]) [facility] ([facility]) [address] [place] [address] 20271 WBC (Bld) [#/Vol] 8.2 x10*3/uL Normal 4.4-11.3 [facility] Comment on above: Performed By: #### 5 7021-8 #### LAYLA MENDOZA ([id number]) [facility] ([facility]) [address] [place] [address] Comprehensive metabolic 2000 panelon 04-25-2024 Albumin BCP dye [Mass/Vol] 4.2 g/dL Normal 3.4-5.0 [facility] Comment on above: Performed By: #### 2 4323-8 #### LAYLA MENDOZA ([id number]) [facility] ([facility]) [address] [place] [address] ALP [Catalytic activity/Vol] 40 U/L Normal 33-136 [facility] Comment on above: Performed By: #### 2 4323-8 #### LAYLA MENDOZA ([id number]) [facility] ([facility]) [address] [place] [address] 88229 ALT With P-5'-P [Catalytic activity/Vol] 14 U/L Normal 10-52 [facility] Comment on above: Result Comment: Shey ents treated with Sulfasalazine may generate falsely decreased results for ALT. Performed By: #### 2 4323-8 #### LAYLA MENDOZA ([id number]) [facility] ([facility]) [address] [place] [address] 50217 Anion gap [Moles/Vol] 14 mmol/L Normal 10-20 [facility] Comment on above: Performed By: #### 2 4323-8 #### LAYLA MENDOZA ([id number]) [facility] ([facility]) [address] [place] [address] 98794 AST With P-5'-P [Catalytic activity/Vol] 17 U/L Normal 9-39 [facility] Comment on above: Performed By: #### 2 4323-8 #### LAYLA MENDOZA ([id number]) [facility] ([facility]) [address] [place] [address] 70454 Bilirubin [Mass/Vol] 0.4 mg/dL Normal 0.0-1.2 [facility] Comment on above: Performed By: #### 2 432-8 #### LAYLA MENDOZA ([id number]) [facility] ([facility]) [address] [place] [address] 39568 Calcium [Mass/Vol] 9.5 mg/dL Normal 8.6-10.3 [facility] Comment on above: Performed By: #### 2 432-8 #### LAYLA MENDOZA ([id number]) [facility] ([facility]) [address] [place] [address] 05850 Chloride [Moles/Vol] 103 mmol/L Normal 98-107 [facility] Comment on above: Performed By: #### 2 4323-8 #### LAYLA MENDOZA ([id number]) [facility]) [address] [place] [address] 44236 CO2 [Moles/Vol] 21 mmol/L Normal 21-32 [facility] Comment on above: Performed By: #### 2 4323-8 #### LAYLA MENDOZA ([id number]) [facility] ([facility]) [address] [place] [address] 07262 Creatinine [Mass/Vol] 1.44 mg/dL High 0.50-1.30 [facility] Comment on above: Performed By: #### 2 4323-8 #### LAYLA MENDOZA ([id number]) [facility] ([facility]) [address] [place] [address] 87194 Glomerular filtration rate/1.73 sq M.predicted 51 mL/min/1.73m*2 Low >60 [facility] Comment on above: Result Comment: Calc ulations of estimated GFR are performed using the 2020 CKD-EPI Study Refit equation without the race variable for the IDMS-Traceable creatinine methods. https://jasn.asnjournals.org/content//ASN.2020 834569 Performed By: #### 2 4323-8 #### LAYLA MENDOZA ([id number]) [facility] ([facility]) [address] [place] [address] 60052 Glucose [Mass/Vol] 192 mg/dL High 74-99 [facility] Comment on above: Performed By: #### 2 4323-8 #### LAYLA MENDOZA ([id number]) [facility] ([facility]) [address] [place] [address] 45778 Potassium [Moles/Vol] 4.3 mmol/L Normal 3.5-5.3 [facility] Comment on above: Performed By: #### 2 4323-8 #### LAYLA MENDOZA ([id number]) [facility] ([facility]) [address] [place] [address] 33365 Protein [Mass/Vol] 6.9 g/dL Normal 6.4-8.2 [facility] Comment on above: Performed By: #### 2 4323-8 #### LAYLA MENDOZA ([id number]) [facility] ([facility]) [address] [place] [address] 77933 Sodium [Moles/Vol] 134 mmol/L Low 136-145 [facility] Comment on above: Performed By: #### 2 4323-8 #### LAYLA MENDOZA ([id number]) [facility] ([facility]) [address] [place] [address] 99040 Urea nitrogen [Mass/Vol] 22 mg/dL Normal 6-23 [facility] Comment on above: Performed By: #### 2 4323-8 #### LAYLA MENDOZA ([id number]) [facility] ([facility]) [address] [id number] HbA1c (Bld) [Mass fraction]o n 04-25-2024 Average glucose Estimated from glycated hemoglobin (Bld) [Mass/Vol] 192 mg/dL Normal Not Established [facility] Comment on above: Order Comment: Diagn osis of Diabetes-Adults Non-Diabetic: < or = 5.6% Increased risk for developing diabetes: 5.7-6.4% Diagnostic of diabetes: > or = 6.5% Performed By: #### 4 548-4 #### LAYLA MENDOZA ([id number]) [facility] ([facility]) [facility] [place] [address] Hemoglobin A1c/Hemoglobin.to ada 04-25-2024 HbA1c (Bld) [Mass fraction] 8.3 % High see below [facility] Comment on above: Order Comment: Diagn osis of Diabetes-Adults Non-Diabetic: < or = 5.6% Increased risk for developing diabetes: 5.7-6.4% Diagnostic of diabetes: > or = 6.5% Performed By: #### 4 548-4 #### LAYLA MENDOZA ([id number]) [facility] ([facility]) [address] [place] [address] 07575 Lipid 1996 panelon 4 Cholesterol [Mass/Vol] 181 mg/dL Normal 0-199 Un [facility] Comment on above: Result Comment: Age [...] By: #### 2 4331-1 #### LAYLA MENDOZA ([id number]) [facility] ([facility]) [address] [place] [address] Cholesterol in HDL [Mass/Vol] 34.0 mg/dL Normal [facility] Comment on above: Result Comment: Age Very Low Low Normal High 0-19 Y < 35 < 40 40-45 ---- 20-24 Y ---- < 40 >45 ---- >24 Y ---- < 40 40-60 >60 Performed By: #### 2 4331-1 #### LAYLA MENDOZA ([id number]) [facility] ([facility]) [address] [place] [address] 92488 Cholesterol in LDL [Mass/Vol] Normal [facility] Comment on above: Result Comment: The calculation [...] By: #### 2 4331-1 #### LAYLA MENDOZA ([id number]) [facility] ([facility]) [address] [place] [address] 42403 CHOLESTEROL/HDL RATIO 5.3 Normal [facility] Comment on above: Result Comment: Ref Values Desirable < 3.4 High Risk > 5.0 Performed By: #### 2 4331-1 #### LAYLA MENDOZA ([id number]) [facility] ([facility]) [address] [place] [address] 56040 NON HDL CHOLESTEROL 147 mg/dL Normal 0-149 [facility] Comment on above: Result Comment: Age Desirable Borderline High High Very High 0-19 Y 0 - 119 120 - 144 >/= 145 >/= 160 20-24 Y 0 - 149 150 - 189 >/= 190 ---- >24 Y 30 mg/dL above LDL Cholesterol goal Performed By: #### 2 4331-1 #### LAYLA MENDOZA ([id number]) [facility] ([facility]) [address] [place] [address] Triglyceride [Mass/Vol] 546 mg/dL High 0-149 U [facility] Comment on above: Result Comment: Age [...] By: #### 2 4331-1 #### LAYLA MENDOZA ([id number]) [facility] ([facility]) [address] [place] [address] VLDL Normal [facility] Comment on above: Result Comment: Unab le to calculate VLDL. Performed By: #### 2 4331-1 #### LAYLA MENDOZA ([id number]) [facility] ([facility]) [address] [place] [address] Prostate specific Agon 04-25 Prostate specific Ag [Mass/Vol] 0.95 ng/mL Normal <=4.00 [facility] Comment on above: Order Comment: The F DA requires that the method used for PSA assay be reported to the physician. Values obtained with different assay methods must not be used interchangeably. This test was performed at [facility] using the OnSwipe PSA assay is a two-site immunoenzymatic sandwich assay. The assay is approved for measurement of prostate-specific antigen (PSA)in serum and may be used in conjunction with a digital rectal examination in men 50 years and older as an aid in detection of prostate cancer. 2-Trtfx-vppqgwhut inhibitors (e.g. Proscar, Finasteride, Avodart, Dutasteride and Carmenza) for the treatment of BPH have been shown to lower PSA levels by an average of 50% after 6 months of treatment. 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: Albert Inman RVT Referring Physician: BUDDY LIN II ; Indications - non palpable pulses, tobacco use I73.9 - Peripheral vascular disease, unspecified Procedure Description 28134 Limited bilateral noninvasive physiologic studies of upper [...] Chaparro MD on 03/21/2024 04:04 PM Normal [facility] COMPREHENSIVE METABOLIC PANE Jer 03-08-2024 Albumin [Mass/Vol] 3.9 g/dL Normal 3.2-5.2 [facility] Comment on above: Order Comment: [facility] has implemented the eGFR calculation approach that does not have a coefficient for race that conforms to the NKF-ASN Task Force Recommendations. Performed By: #### 4 6126 #### [facility] [address] [place] [address] 27955 Bob Curran M.D. [id number] ALP [Catalytic activity/Vol] 53 U/L Normal 40-150 [facility] Comment on above: Order Comment: [facility] has implemented the eGFR calculation approach that does not have a coefficient for race that conforms to the NKF-ASN Task Force Recommendations. Performed By: #### 4 6126 #### [facility] [address] [place] [address] 27092 Bob Curran M.D. [id number] ALT [Catalytic activity/Vol] 12 U/L Normal 0-50 U/L [facility] Comment on above: Order Comment: [facility] has implemented the eGFR calculation approach that does not have a coefficient for race that conforms to the NKF-ASN Task Force Recommendations. Performed By: #### 4 6126 #### [facility] [address] [place] [address] 53222 Bob Curran M.D. [id number] Anion gap [Moles/Vol] 17 mmol/L Normal 10-20 [facility] Comment on above: Order Comment: [facility] has implemented the eGFR calculation approach that does not have a coefficient for race that conforms to the NKF-ASN Task Force Recommendations. Performed By: #### 4 6126 #### [facility] [address] [place], [place] [address] Bob Curran M.D. [id number] AST [Catalytic activity/Vol] 16 U/L Normal 0-50 U/L [facility] Comment on above: Order Comment: [facility] has implemented the eGFR calculation approach that does not have a coefficient for race that conforms to the NKF-ASN Task Force Recommendations. Performed By: #### 4 6126 #### [facility] [address] [place] [address] 79272 Bob Curran M.D. [id number] Bilirubin [Mass/Vol] 0.3 mg/dL Normal 0.0-1.3 [facility] Comment on above: Order Comment: [facility] has implemented the eGFR calculation approach that does not have a coefficient for race that conforms to the NKF-ASN Task Force Recommendations. Performed By: #### 4 6126 #### [facility] [address] [place], [place] [address] Bob Curran M.D. [id number] Calcium [Mass/Vol] 9.4 mg/dL Normal 8.4-10.2 [facility] Comment on above: Order Comment: [facility] has implemented the eGFR calculation approach that does not have a coefficient for race that conforms to the NKF-ASN Task Force Recommendations. Performed By: #### 4 6126 #### [facility] [address] [place] [address] 45065 Bob Curran M.D. [id number] Chloride [Moles/Vol] 99 mmol/L Normal 98-108 [facility] Comment on above: Order Comment: [facility] has implemented the eGFR calculation approach that does not have a coefficient for race that conforms to the NKF-ASN Task Force Recommendations. Performed By: #### 4 6126 #### [facility] [address] [place] [address] 53817 Bob Curran M.D. [id number] Creatinine [Mass/Vol] 1.33 mg/dL High 0.80-1.30 [facility] Comment on above: Order Comment: [facility] has implemented the eGFR calculation approach that does not have a coefficient for race that conforms to the NKF-ASN Task Force Recommendations. Performed By: #### 4 6126 #### [facility] [address] [place] [address] 23507 Bob Curran M.D. [id number] EGFR 56 mL/min/1.73 m2 Low >=60 [facility] Comment on above: Order Comment: [facility] has implemented the eGFR calculation approach that does not have a coefficient for race that conforms to the NKF-ASN Task Force Recommendations. Result Comment: Telma mated GFR was calculated using the 2020 CKD-EPI creatinine equation. Performed By: #### 4 6126 #### [facility] [address] [place], [place] [address] Bob Curran M.D. [id number] Glucose [Mass/Vol] 201 mg/dL High 65-99 [facility] Comment on above: Order Comment: [facility] has implemented the eGFR calculation approach that does not have a coefficient for race that conforms to the NKF-ASN Task Force Recommendations. Performed By: #### 4 6126 #### [facility] [address] [place] [address] 68580 Bob Curran M.D. [id number] HCO3 (Bld) [Moles/Vol] 22 mmol/L Normal 21-32 [facility] Comment on above: Order Comment: [facility] has implemented the eGFR calculation approach that does not have a coefficient for race that conforms to the NKF-ASN Task Force Recommendations. Performed By: #### 4 6126 #### [facility] [address] [place] [address] 46428 Bob Curran M.D. [id number] Potassium [Moles/Vol] 4.9 mmol/L Normal 3.5-5.1 [facility] Comment on above: Order Comment: [facility] has implemented the eGFR calculation approach that does not have a coefficient for race that conforms to the NKF-ASN Task Force Recommendations. Performed By: #### 4 6126 #### [facility] [address] [place] [address] 76086 Bob Curran M.D. [id number] Protein [Mass/Vol] 7.3 g/dL Normal 6.0-8.0 [facility] Comment on above: Order Comment: [facility] has implemented the eGFR calculation approach that does not have a coefficient for race that conforms to the NKF-ASN Task Force Recommendations. Performed By: #### 4 6126 #### [facility] [address] [place] [address] 57323 Bob Curran M.D. [id number] Sodium [Moles/Vol] 133 mmol/L Low 135-145 [facility] Comment on above: Order Comment: [facility] has implemented the eGFR calculation approach that does not have a coefficient for race that conforms to the NKF-ASN Task Force Recommendations. Performed By: #### 4 6126 #### [address] [address] Bob Curran M.D. [id number] Urea nitrogen [Mass/Vol] 23 mg/dL Normal 8-25 [facility] Comment on above: Order Comment: [facility] has implemented the eGFR calculation approach that does not have a coefficient for race that conforms to the NKF-ASN Task Force Recommendations. Performed By: #### 4 6126 #### [facility] [address] [place] [address] 12399 Bob Curran M.D. [id number] Urea nitrogen/Creatinine [Mass ratio] 17.3 mg/mg Normal 10.0-20.0 [facility] Comment on above: Order Comment: [facility] has implemented the eGFR calculation approach that does not have a coefficient for race that conforms to the NKF-ASN Task Force Recommendations. Performed By: #### 4 6126 #### [facility] [address] [place], [place] [address] Bob Curran M.D. [id number] HEMOGLOBIN A1Con 03-08-2024 Glucose [Mass/Vol] 214 mg/dL High 74-114 [facility] Comment on above: Order Comment: [place] l: 4.2% - 5.6% Increased risk for diabetes: 5.7% - 6.4% Diabetes: >= 6.5% Pediatrics: No established reference range Estimated average glucose: 74-114 mg/dL Performed By: #### 4 8202 #### [facility] [address] [place], [place] [address] Bob Curran M.D. [id number] HbA1c (Bld) [Mass fraction] 9.1 % High 4.2-5.6 [facility] Comment on above: Order Comment: Keturah l: 4.2% - 5.6% Increased risk for diabetes: 5.7% - 6.4% Diabetes: >= 6.5% Pediatrics: No established reference range Estimated average glucose: 74-114 mg/dL Performed By: #### 4 8202 #### [facility] [address] [place], [place] [address] Bob Curran M.D. [id number] LIPID PANELon 03-08-2024 Cholesterol [Mass/Vol] 161 mg/dL Normal 100-199 [facility] Comment on above: Performed By: #### 4 6087 #### [facility] [address] [place], [place] [address]Marty Curran M.D. [id number] Cholesterol in HDL [Mass/Vol] 34 mg/dL Low 40-59 [facility] Comment on above: Performed By: #### 4 6087 #### [facility] [address] [place], [place] [address] Bob Curran M.D. [id number] Cholesterol.total/Caren sterol in HDL [Mass ratio] 4.7 {ratio} Normal [facility] Comment on above: Result Comment: Male s Cholesterol/HDL Ratio: Average risk: 5.0 1/2 average risk: 3.4 2 x average risk: 9.6 Performed By: #### 4 6087 #### [facility] [address] [place], [place] [address] Bob Curran M.D. [id number] LDL CHOLESTEROL CALCULATED 68 mg/dL Normal 10-130 [facility] Comment on above: Result Comment: [facility] onal Cholesterol Education Program Guidelines: LDL Cholesterol Optimal: <100 mg/dL Near Optimal/above Optimal: 100-129 mg/dL Borderline High: 130-159 mg/dL High: 160-189 mg/dL Very High: greater than or equal to 190 mg/dL Performed By: #### 4 6087 #### [facility] [address] [place], [place] [address] Bob Curran M.D. [id number] NON HDL CHOL 127 mg/dL Normal [facility] Comment on above: Result Comment: [place] [facility] Cholesterol Education Program Guidelines: NON HDL Cholesterol Desirable: <130 mg/dL Borderline High: 130-159 mg/dL High: 160-189 mg/dL Very High: > or = 190 mg/dL Performed By: #### 4 6087 #### [facility] [address] [place], [place] [address] Bob Curran M.D. [id number] Triglyceride [Mass/Vol] 294 mg/dL High 30-150 M [facility] Comment on above: Performed By: #### 4 6087 #### [facility] [address] [place], [place] [address] Bob Curran M.D. [id number] MICROALBUMIN/CREATININE RATI O, UR RANDOMon 03-08-2024 Albumin DL <= 20 mg/L (U) [Mass/Vol] 33.6 mg/dL High 0.0-1.8 [facility] Comment on above: Performed By: #### L [id number] #### [facility] [address] [place] [address] 35005 Eric Moser M.D. [id number] CREATININE, URINE, RANDOM 79.5 mg/dL Normal [facility] Comment on above: Performed By: #### L [id number] #### LAB [address] [id number] Eric Moser M.D. [id number] MICROALBUMIN/CREATININE RATIO 423 mg/g crea High 0-25 [facility] Comment on above: Performed By: #### L [id number] #### [facility] [address] [address] Eric Moser M.D. [id number] T4, FREEon 03-08-2024 Free T4 [Mass/Vol] 1.1 ng/dL Normal 0.7-1.7 [facility] Comment on above: Performed By: #### 4 6567 #### [facility] [address] [place], [place] [address] Bob Curran M.D. [id number] TSHon 03-08-2024 TSH Qn 1.99 m[IU]/L Normal 0.27-4.20 [facility] Comment on above: Performed By: #### 4 6613 #### [facility] [address] [place] [address] Bob Curran M.D. [id number] COVID-19/INFLUENZA A,B MOLEC ARon 02-22-2024 SARS-CoV-2 (COVID-19) Ab IA Ql SARS-COV-2 (EDITH): Not Detected INFLUENZA A (EDITH): Not Detected INFLUENZA B (EDITH): Not Detected Normal Not Detected [facility] Comment on above: Performed By: #### L [id number] #### LAB [address] [id number] Eric Moser M.D. [id number] XR CHEST PA/APon 02-22-2024 XR CHEST PA/AP [...] ID: [id number] Dictated by: BIB BARKSDALE on Madeline Feb 22, 2024 1:57:59 PM EDT Transcribed by: BIB BARKSDALE on Madeline Feb 22, 2024 1:57:59 PM EDT Finalized by: BIB BARKSDALE on Madeline Feb 22, 2024 1:57:59 PM EDT Normal [facility] Comment on above: Order Comment: Injur y/Trauma [...] care plan. 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 SORE THROAT SINCE THIS MORNING, [...] (530.81) (K21. (more content not included)... Normal [employer] BASIC METABOLIC PANELon 10-30 Anion gap [Moles/Vol] 15 mmol/L Normal 10 - 20 [facility] Comment on above: Performed By: #### B MP #### [address] [address] Calcium [Mass/Vol] 9.4 mg/dL Normal 8.6 - 10.3 [facility] Comment on above: Performed By: #### B MP #### [address] [address] Chloride [Moles/Vol] 97 mmol/L Low 98 - 107 [facility] Comment on above: Performed By: #### B MP #### [address] [address] Creatinine [Mass/Vol] 2.08 mg/dL High 0.50 - 1.30 [facility] Comment on above: Performed By: #### B MP #### [address] [address] GFR/1.73 sq M.predicted among non-blacks MDRD (S/P/Bld) [Vol rate/Area] 33 mL/min/{1.73_m2} Abnormal >90 [facility] Comment on above: Result Comment: CALC ULATIONS OF ESTIMATED GFR ARE PERFORMED USING THE 2020 CKD-EPI STUDY REFIT EQUATION WITHOUT THE RACE VARIABLE FOR THE IDMS-TRACEABLE CREATININE METHODS. https://jasn.asnjournals.org/content/early/ASN.2020 055056 Performed By: #### B MP #### [address] [address] Glucose [Mass/Vol] 260 mg/dL High 74 - 99 [facility] Comment on above: Performed By: #### B MP #### [address] [address] HCO3 (Bld) [Moles/Vol] 24 mmol/L Normal 21 - 32 [facility] Comment on above: Performed By: #### B MP #### [address] [address] Potassium [Moles/Vol] 5.1 mmol/L Normal 3.5 - 5.3 [facility] Comment on above: Performed By: #### B MP #### [address] [address] Sodium [Moles/Vol] 131 mmol/L Low 136 - 145 [facility] Comment on above: Performed By: #### B MP #### [address] [address] Urea nitrogen [Mass/Vol] 38 mg/dL High 6 - 23 [facility] Comment on above: Performed By: #### B MP #### [address] [address] ANION GAP Canceled Normal [facility] Comment on above: Order Comment: TEST BASIC METABOLIC PANEL WAS CANCELLED, 11/09/2022 19:03 DUPLICATE ORDER. Performed By: #### B MP #### [address] [address] BICARBONATE Canceled Normal [facility] Comment on above: Order Comment: TEST BASIC METABOLIC PANEL WAS CANCELLED, 11/09/2022 19:03 DUPLICATE ORDER. Performed By: #### B MP #### [address] [address] CALCIUM Canceled Normal [facility] [place] [facility] Comment on above: Order Comment: TEST BASIC METABOLIC PANEL WAS CANCELLED, 11/09/2022 19:03 DUPLICATE ORDER. Performed By: #### B MP #### [address] [address] CHLORIDE Canceled Normal [facility] [place] [facility] Comment on above: Order Comment: TEST BASIC METABOLIC PANEL WAS CANCELLED, 11/09/2022 19:03 DUPLICATE ORDER. Performed By: #### B MP #### [address] [address] CREATININE Canceled Normal [facility] [place] Comment on above: Order Comment: TEST BASIC METABOLIC PANEL WAS CANCELLED, 11/09/2022 19:03 DUPLICATE ORDER. Performed By: #### B MP #### [address] [address] eGFR FEMALE Canceled Normal [facility] [place] Comment on above: Order Comment: TEST BASIC METABOLIC PANEL WAS CANCELLED, 11/09/2022 19:03 DUPLICATE ORDER. Result Comment: CALC ULATIONS OF ESTIMATED GFR ARE PERFORMED USING THE 2020 CKD-EPI STUDY REFIT EQUATION WITHOUT THE RACE VARIABLE FOR THE IDMS-TRACEABLE CREATININE METHODS. https://jasn.asnjournals.org/content/ASN 152903 Performed By: #### B MP #### [address] [address] eGFR MALE Canceled Normal [facility] [place] [facility] Comment on above: Order Comment: TEST BASIC METABOLIC PANEL WAS CANCELLED, 11/09/2022 19:03 DUPLICATE ORDER. Result Comment: CALC ULATIONS OF ESTIMATED GFR ARE PERFORMED USING THE 2020 CKD-EPI STUDY REFIT EQUATION WITHOUT THE RACE VARIABLE FOR THE IDMS-TRACEABLE CREATININE METHODS. https://jasn.asnjournals.org/content/ 237464 Performed By: #### B MP #### [address] [address] GLUCOSE Canceled Normal [facility] [place] Comment on above: Order Comment: TEST BASIC METABOLIC PANEL WAS CANCELLED, 11/09/2022 19:03 DUPLICATE ORDER. Performed By: #### B MP #### [address] [address] POTASSIUM Canceled Normal [facility] [place] Comment on above: Order Comment: TEST BASIC METABOLIC PANEL WAS CANCELLED, 11/09/2022 19:03 DUPLICATE ORDER. Performed By: #### B MP #### [address] [address] SODIUM Canceled Normal [facility] [place] Comment on above: Order Comment: TEST BASIC METABOLIC PANEL WAS CANCELLED, 11/09/2022 19:03 DUPLICATE ORDER. Performed By: #### B MP #### [address] [address] UREA NITROGEN Canceled Normal [facility] [place] Comment on above: Order Comment: TEST BASIC METABOLIC PANEL WAS CANCELLED, 11/09/2022 19:03 DUPLICATE ORDER. Performed By: #### B MP #### [address] [address] C Reactive Protein, Serumon 11-09-2022 CRP [Mass/Vol] 1.93 mg/dL Abnormal [facility] Work Phone: Comment on above: REF VALUE< 1.00 C-REACTIVE PROTEINon 023 C-REACTIVE PROTEIN 1.93 mg/dL Abnormal [facility] Comment on above: Result Comment: REF VALUE < 1.00 Performed By: #### C RP #### [address] [address] C-REACTIVE PROTEIN Canceled Normal [facility] [place] Comment on above: Order Comment: TEST C-REACTIVE PROTEIN WAS CANCELLED, 11/09/2022 19:03 DUPLICATE ORDER. Performed By: #### C RP #### [address] [address] CBC AND DIFFERENTIALon 11-09 % AUTOMATED IMMATURE GRAN 3.6 % High 0.0 - 0.9 [facility] Comment on above: Result Comment: Yaquelin ture Granulocyte Count (IG) includes promyelocytes, myelocytes and metamyelocytes but does not include bands. Percent differential counts (%) should be interpreted in the context of the absolute cell counts (cells/L). Performed By: #### C BCDF #### [address] [address] Basophils (Bld) [#/Vol] 0.12 10*3/uL High 0.00 - 0.1 0 [facility] Comment on above: Performed By: #### C BCDF #### [address] [address] Basophils/100 WBC (Bld) 1.2 % Normal 0.0 - 2.0 S [facility] Comment on above: Performed By: #### C BCDF #### [address] [address] Eosinophils (Bld) [#/Vol] 0.12 10*3/uL Normal 0.00 - 0.40 [facility] Comment on above: Performed By: #### C BCDF #### [address] [address] Eosinophils/100 WBC (Bld) 1.2 % Normal 0.0 - 6.0 [facility] Comment on above: Performed By: #### C BCDF #### [address] [address] Erythrocyte distribution width (RBC) [Ratio] 11.8 % Normal 11.5 - 14.5 [facility] Comment on above: Performed By: #### C BCDF #### [address] [address] Hematocrit (Bld) [Volume fraction] 33.8 % Low 41.0 - 52.0 [facility] Comment on above: Performed By: #### C BCDF #### [address] [address] Hemoglobin (Bld) [Mass/Vol] 11.6 g/dL Low 13.5 - 17.5 [facility] Comment on above: Performed By: #### C BCDF #### [address] [address] Lymphocytes (Bld) [#/Vol] 1.58 10*3/uL Normal 0.80 - 3.00 [facility] Comment on above: Performed By: #### C BCDF #### [address] [address] Lymphocytes/100 WBC (Bld) 16.0 % Normal 13.0 - 44.0 [facility] Comment on above: Performed By: #### C BCDF #### [address] [address] MCHC (RBC) [Mass/Vol] 34.3 g/dL Normal 32.0 - 36.0 [facility] Comment on above: Performed By: #### C BCDF #### [address] [address] MCV (RBC) [Entitic vol] 106 fL High 80 - 100 S [facility] Comment on above: Performed By: #### C BCDF #### [address] [address] Monocytes (Bld) [#/Vol] 0.65 10*3/uL Normal 0.05 - 0.8 0 [facility] Comment on above: Performed By: #### C BCDF #### [address] [address] Monocytes/100 WBC (Bld) 6.6 % Normal 2.0 - 10.0 S [facility] Comment on above: Performed By: #### C BCDF #### [address] [address] Neutrophils (Bld) [#/Vol] 7.04 10*3/uL High 1.60 - 5.50 [facility] Comment on above: Result Comment: Perc ent differential counts (%) should be interpreted in the context of the absolute cell counts (cells/L). Performed By: #### C BCDF #### [address] [address] Neutrophils/100 WBC (Bld) 71.4 % Normal 40.0 - 80.0 [facility] Comment on above: Performed By: #### C BCDF #### [address] [address] Platelets (Bld) [#/Vol] 311 10*3/uL Normal 150 - 450 [facility] Comment on above: Performed By: #### C BCDF #### [address] [address] RBC 3.20 x10E12/L Low 4.50 - 5.90 [facility] Comment on above: Performed By: #### C BCDF #### [address] [address] WBC (Bld) [#/Vol] 9.9 10*3/uL Normal 4.4 - 11.3 [facility] Comment on above: Performed By: #### C BCDF #### [address] [address] % AUTOMATED IMMATURE GRAN Canceled Normal [facility] [place] Comment on above: Order Comment: TEST CBC AND DIFFERENTIAL WAS CANCELLED, 11/09/2022 19:03 DUPLICATE ORDER. Result Comment: Yaquelin ture Granulocyte Count (IG) includes promyelocytes, myelocytes and metamyelocytes but does not include bands. Percent differential counts (%) should be interpreted in the context of the absolute cell counts (cells/L). Performed By: #### C BCDF #### [address] [address] % BASOPHIL Canceled Normal [facility] [place] Comment on above: Order Comment: TEST CBC AND DIFFERENTIAL WAS CANCELLED, 11/09/2022 19:03 DUPLICATE ORDER. Performed By: #### C BCDF #### [address] [address] % EOSINOPHIL Canceled Normal [facility] [place] Comment on above: Order Comment: TEST CBC AND DIFFERENTIAL WAS CANCELLED, 11/09/2022 19:03 DUPLICATE ORDER. Performed By: #### C BCDF #### [address] [address] % LYMPHOCYTE Canceled Normal [facility] [place] Comment on above: Order Comment: TEST CBC AND DIFFERENTIAL WAS CANCELLED, 11/09/2022 19:03 DUPLICATE ORDER. Performed By: #### C BCDF #### [address] [address] % MONOCYTE Canceled Normal [facility] [place] Comment on above: Order Comment: TEST CBC AND DIFFERENTIAL WAS CANCELLED, 11/09/2022 19:03 DUPLICATE ORDER. Performed By: #### C BCDF #### [address] [address] % NEUTROPHIL Canceled Normal [facility] [place] Comment on above: Order Comment: TEST CBC AND DIFFERENTIAL WAS CANCELLED, 11/09/2022 19:03 DUPLICATE ORDER. Performed By: #### C BCDF #### [address] [address] BASOPHIL Canceled Normal [facility] [place] Comment on above: Order Comment: TEST CBC AND DIFFERENTIAL WAS CANCELLED, 11/09/2022 19:03 DUPLICATE ORDER. Performed By: #### C BCDF #### [address] [address] DIFFERENTIAL Canceled Normal [facility] [place] Comment on above: Order Comment: TEST CBC AND DIFFERENTIAL WAS CANCELLED, 11/09/2022 19:03 DUPLICATE ORDER. Performed By: #### C BCDF #### [address] [address] EOSINOPHIL Canceled Normal [facility] [place] Comment on above: Order Comment: TEST CBC AND DIFFERENTIAL WAS CANCELLED, 11/09/2022 19:03 DUPLICATE ORDER. Performed By: #### C BCDF #### [address] [address] HCT Canceled Normal [facility] [place] Comment on above: Order Comment: TEST CBC AND DIFFERENTIAL WAS CANCELLED, 11/09/2022 19:03 DUPLICATE ORDER. Performed By: #### C BCDF #### [place] [id number] HGB Canceled Normal [facility] [place] Comment on above: Order Comment: TEST CBC AND DIFFERENTIAL WAS CANCELLED, 11/09/2022 19:03 DUPLICATE ORDER. Performed By: #### C BCDF #### [place] [id number] LYMPHOCYTE Canceled Normal [facility] [place] Comment on above: Order Comment: TEST CBC AND DIFFERENTIAL WAS CANCELLED, 11/09/2022 19:03 DUPLICATE ORDER. Performed By: #### C BCDF #### [place] [id number] MCHC Canceled Normal [facility] [place] Comment on above: Order Comment: TEST CBC AND DIFFERENTIAL WAS CANCELLED, 11/09/2022 19:03 DUPLICATE ORDER. Performed By: #### C BCDF #### [address] [address] MCV Canceled Normal [facility] [place] Comment on above: Order Comment: TEST CBC AND DIFFERENTIAL WAS CANCELLED, 11/09/2022 19:03 DUPLICATE ORDER. Performed By: #### C BCDF #### [address] [address] MONOCYTE Canceled Normal [facility] [place] Comment on above: Order Comment: TEST CBC AND DIFFERENTIAL WAS CANCELLED, 11/09/2022 19:03 DUPLICATE ORDER. Performed By: #### C BCDF #### [place] [id number] NEUTROPHIL Canceled Normal [facility] [place] Comment on above: Order Comment: TEST CBC AND DIFFERENTIAL WAS CANCELLED, 11/09/2022 19:03 DUPLICATE ORDER. Result Comment: Perc ent differential counts (%) should be interpreted in the context of the absolute cell counts (cells/L). Performed By: #### C BCDF #### [place] [address] PLT Canceled Normal [facility] [place] Comment on above: Order Comment: TEST CBC AND DIFFERENTIAL WAS CANCELLED, 11/09/2022 19:03 DUPLICATE ORDER. Performed By: #### C BCDF #### [place] [address] RBC Canceled Normal [facility] [place] Comment on above: Order Comment: TEST CBC AND DIFFERENTIAL WAS CANCELLED, 11/09/2022 19:03 DUPLICATE ORDER. Performed By: #### C BCDF #### [place] [address] RDW-CV Canceled Normal [facility] [place] Comment on above: Order Comment: TEST CBC AND DIFFERENTIAL WAS CANCELLED, 11/09/2022 19:03 DUPLICATE ORDER. Performed By: #### C BCDF #### [place] [address] WBC Canceled Normal [facility] [place] Comment on above: Order Comment: TEST CBC AND DIFFERENTIAL WAS CANCELLED, 11/09/2022 19:03 DUPLICATE ORDER. Performed By: #### C BCDF #### [place] [id number] Complete Blood Count + Diffe rentialon 11-09-2022 Basophils/100 WBC (Bld) 1.2 % 0.0 - 2.0 M [facility] Internal Medicine Work Phone: Erythrocyte distribution width (RBC) [Ratio] 11.8 % See Below [facility] Internal Medicine Work Phone: Comment on above: Reference Range: 11. 5 - 14.5 Hematocrit (Bld) [Volume fraction] 33.8 % below low threshold See Below [facility] Internal Medicine Work Phone: Comment on above: Reference Range: 41. 0 - 52.0 Hemoglobin (Bld) [Mass/Vol] 11.6 g/dL below low threshold See Below [facility] Work Phone: Comment on above: Reference Range: 13. 5 - 17.5 Lymphocytes/100 WBC (Bld) 16.0 % See Below [facility] Work Phone: Comment on above: Reference Range: 13. 0 - 44.0 MCHC (RBC) [Mass/Vol] 34.3 g/dL See Below [facility] Work Phone: Comment on above: Reference Range: 32. 0 - 36.0 MCV (RBC) [Entitic vol] 106 fL above hi gh threshold 80 - 100 [facility] Work Phone: Monocytes/100 WBC (Bld) 6.6 % 2.0 - 10.0 M [facility] Work Phone: Neutrophils/100 WBC (Bld) 71.4 % See Below [facility] Work Phone: Comment on above: Reference Range: 40. 0 - 80.0 Platelets (Bld) [#/Vol] 311 10*3/uL 150 - 450 [facility] Work Phone: RBC (Bld) [#/Vol] 3.20 {x10E12/L} below low threshold See Below [facility] Work Phone: Comment on above: Reference Range: 4.5 0 - 5.90 WBC (Bld) [#/Vol] 9.9 10*3/uL 4.4 - 11.3 [facility] Work Phone: Complete Blood Count + Differential 0.12 {x10E9/L} See Below [facility] Work Phone: Comment on above: Reference Range: 0.0 0 - 0.10 Reference Range: 0.0 0 - 0.40 Complete Blood Count + Differential 0.65 {x10E9/L} See Below [facility] Work Phone: Comment on above: Reference Range: 0.0 5 - 0.80 Complete Blood Count + Differential 1.58 {x10E9/L} See Below [facility] Work Phone: Comment on above: Reference Range: 0.8 0 - 3.00 Complete Blood Count + Differential 7.04 {x10E9/L} above high threshold See Below [facility] Work Phone: Comment on above: Reference Range: 1.6 0 - 5.50 Percent differential counts (%) should be interpreted in the context of the absolute cell counts (cells/L). Complete Blood Count + Differential 1.2 % 0.0 - 6.0 [facility] Work Phone: Complete Blood Count + Differential 3.6 % above high threshold 0.0 - 0.9 [facility] Work Phone: Comment on above: Immature Granulocyte Count (IG) includes promyelocytes, myelocytes and metamyelocytes but does not include bands. Percent differential counts (%) should be interpreted in the context of the absolute cell counts (cells/L). Cult, Misc + smearon 023 Bacteria identified Cx Nom (Unsp spec) Abnormal [facility] Work Phone: FOOT COMPLETE, MIN 3 VIEWSon 11-09-2022 FOOT COMPLETE, MIN 3 VIEWS Patient Name: STEVO GERMAIN STUDY: FOOT; COMPLETE, MIN 3 VIEWS; Right; 11/09/2022 4:09 pm INDICATION: right 2nd toe infection & heel infection, r/o free air . COMPARISON: None. ACCESSION NUMBER(S): [id number] ORDERING CLINICIAN: CHRISTOPHER GALINDO FINDINGS: Minimal superficial [...] Electronically signed by: FRANSISCA POWELL MD Normal [facility] [place] Laboratory - Chemistry and C hemistry - challengeon 11-09-2022 Anion gap [Moles/Vol] 15 mmol/L 10 - 20 [facility] Internal Medicine Work Phone: Calcium [Mass/Vol] 9.4 mg/dL 8.6 - 10.3 [facility] Internal Medicine Work Phone: Chloride [Moles/Vol] 97 mmol/L below low threshold 98 - 107 [facility] Internal Medicine Work Phone: CO2 [Moles/Vol] 24 mmol/L 21 - 32 [facility] Internal Medicine Work Phone: Creatinine [Mass/Vol] 2.08 mg/dL above high threshold See Below [facility] Work Phone: Comment on above: Reference Range: 0.5 0 - 1.30 Glucose [Mass/Vol] 260 mg/dL above high threshold 74 - 99 [facility] Work Phone: Potassium [Moles/Vol] 5.1 mmol/L 3.5 - 5.3 [facility] Work Phone: Sodium [Moles/Vol] 131 mmol/L below low threshold 136 - 145 [facility] Work Phone: Urea nitrogen [Mass/Vol] 38 mg/dL above high threshold 6 - 23 [facility] Work Phone: MISCELLANEOUS CULT./SM.BACT. on 11-09-2022 MISCELLANEOUS CULT./SM.BACT. GAS Called- RB to FLYNN WILLS MA, 11/10/2022 16:23 PATIENT: STEVO GERMAIN LOCATION: [facility] [place] BILL#: [id number] : 48 AGE: SEX: M ORDERED BY: CHRISTOPHER GALINDO SOURCE: WOUND/ABSCESS COLLECTED: 11/09/22 15:44 ANTIBIOTICS AT RISSA.: RECEIVED : 11/10/22 00:57 SITE: RT SECOND TOE R E S U L T S GRAM STAIN FINAL 11/10/22 13:16 1+ GRANULOCYTES. 3+ GRAM (+) COCCI MISCELLANEOUS CULT./SM.BACT. FINAL 11/12/22 12:46 ISOLATE1 : Group A streptococcus 4+ Normal [facility] [place] Comment on above: Performed By: #### M [facility] #### [facility] [address] [place] [address] No Panel Informationon 11-09 33 {mL/min/1.73m2} Abnormal >90 -[facility] Internal Medicine Work Phone: Comment on above: CALCULATIONS OF TELMA MATED GFR ARE PERFORMED USING THE 2020 CKD-EPI STUDY REFIT EQUATION WITHOUT THE RACE VARIABLE FOR THE IDMS-TRACEABLE CREATININE METHODS.https://jasn.asnjournals.org/content/early// ASN.6128476433 Provider Note - ED v3on 10-30 Provider [...] Infection: DRAI (more content not included)... Normal [facility] Radiologyon 11-09-2022 XR Foot 3 Views Normal [facility] Work Phone: SEDIMENTATION RATE, ERYTHROC YTEon 11-09-2022 SEDIMENTATION RATE, ERYTHROCYTE 46 mm/h High 0 - 20 [facility] Comment on above: Performed By: #### E SRWS #### [address] [address] SEDIMENTATION RATE, ERYTHROCYTE Canceled Normal [facility] [place] Comment on above: Order Comment: TEST SEDIMENTATION RATE, ERYTHROCYTE WAS CANCELLED, 11/09/2022 19:03 DUPLICATE ORDER. Performed By: #### E SRWS #### [address] [place] [address] Sedimentation Rate, Erythroc yteon 11-09-2022 ESR (Bld) [Velocity] 46 mm/h above high threshold 0 - 20 [facility] Work Phone: Office Visit (Internal [...] pulmonary disease); BANDAR = N; Sent To: [facility]Grinder; Last Updated By: Mobile Backstage; 09/20/2022 2:23:32 PM Start: Nebulizer/Tubing/Mouthpi araceli KIT; USE DIRECTED Rx By: Phyllis Mae; Dispense: 0 Days ; #:1 Kit; Refill: 3; For: Chronic cough, COPD (chronic obstructive pulmonary disease); BANDAR = N; Sent To: [facility]Grinder; Last Updated By: Mobile Backstage; 09/20/2022 2:23:33 PM DM2 (diabetes mellitus, type 2) Comprehensive Metabolic Panel; Status:Active; Requested for:21Dec2022; Perform:Lab Services - Lab To Draw (Blood Test); Due:21Mar2023;Ordered; For:DM2 (diabetes mellitus, type 2); Ordered By:Phyllis Mae; Hemoglobin A1C; Status:Active; Requested for:21Dec2022; Perform:Lab Services - Lab To Draw (Blood Test); Due:[id number];Ordered; For:DM2 (diabetes mellitus, type 2); Ordered By:Phyllis Mae; Encounter for immunization Administered: Fluzone High-Dose Quadrivalent 0.7 ML Intramuscular Suspension Prefilled Syringe For: Encounter for immunization; Ordered By:Phyllis Mae; Effective Date:20Sep2022; Administered by: Daiana Barksdale TRAVELING ACCOUNTANT: 09/20/2022 1:43:00 PM; Last Updated By: Daiana Barksdale; 09/20/2022 1:43:45 PM Essential tremor Renew: Primidone 50 MG Oral Tablet; TAKE 1 TABLET AT BEDTIME Rx By: Phyllis Mae; Dispense: 30 Days ; #:30 Tablet; Refill: 11; For: Essential tremor; BANDAR = N; Verified Transmission to [facility] #6175; Last Updated By: L'Idealist; 09/20/2022 1:28:13 PM GERD (gastroesophageal reflux disease), Intermittent epigastric abdominal pain Start: Sucralfate 1 GM Oral Tablet; TAKE 1 TABLET 4 TIMES DAILY, BEFORE MEALS AND AT BEDTIME Rx By: Phyllis Mae; Dispense: 30 Days ; #:120 Tablet; Refill: 0; For: GERD (gastroesophageal reflux disease), Intermittent epigastric abdominal pain; BANDAR = N; Verified Transmission to [facility] #6175; Last Updated By: [employer]; 09/20/2022 1:28:13 PM Mixed hyperlipidemia Renew: Lovastatin 10 MG Oral Tablet; TAKE 1 TABLET DAILY Rx By: Phyllis Mae; Dispense: 90 Days ; #:90 Tablet; Refill: 3; For: Mixed hyperlipidemia; BNADAR = N; Verified Transmission to [facility] #6175; Last Updated By: L'Idealist; 09/20/2022 1:28:09 PM Patient Discussion/Summary 1/5 MON FOR ABDOMINAL PAIN. 3 MON FOR LABS. 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 CMP, HGBA1C Provider Impressions OFFERED TO DO EKG, CXR , PT REFUSED . PT WANTS TO WAIT FOR [employer] VISIT NEXT WEEK. ADVISED TO GO TO [...] WORSE. HAS OC IN 1 WEEK WITH [employer]ATE AND WANT TO WAIT UNTIL THAT VISIT [...] no wheezing (more content not included)... [facility] PH[facility] VITALSon 09-20-2022 Adult depression screening assessment No [facility] Internal Medicine Work Phone: Tobacco Screening.on 022 Fall risk assessment a) No falls within the last year [facility] Internal Medicine Work Phone: Tobacco use status [facility] b) No M [facility] Internal Medicine Work Phone: Therapy Communicationon 07 Therapy Communication Message STEVO GERMAIN was (D/C)- last seen: 05/04/22. Pt self-discharged [...] Therapy Communicationon 04-29 Therapy Communication Message STEVO GERMAIN no showed [...] Progress Note No report was sent Normal [facility] Therapy Communicationon 07 Therapy Communication Message STEVO GERMAIN canceled today 05/06/22. Patient called to cancel no reason provided per front worker. Signatures Electronically signed by : Quin Li [...] ONLY Supervising PT: Lorena Ochoa PT, DPT, Luh DN PT Dx: [phone]; [...] code time is 29 minutes. Therapeutic exercise (60877): timed minutes 29, units 2 . NuStep [...] was sent Normal [facility] Therapy Communicationon 070 Therapy Communication Message STEVO GERMAIN canceled today 04/29/22. Patient called to cancel. Signatures Electronically signed by : Quin Li PTA; Apr 29 2022 2:35PM EST (Author) Normal [facility] Therapy Communication Message STEVO GERMAIN canceled today 04/29/22. Patient called to cancel. Signatures Electronically signed by : Quin Li PTA; Apr 29 2022 2:34PM EST (Author) Normal [facility] PT Progress Noteon 2 PT Progress Note No report was sent [facility] Therapy Communicationon 03-31 Therapy Communication Message STEVO GERMAIN canceled today 04/25/22. Per front worker patient called to cancel due to broke [...] code time is 30 minutes. Therapeutic exercise (36837): timed minutes 30, units 2 . NuStep [...] Mini squats (more content not included)... Normal [facility] [employer] PT Progress Noteon 2 PT Progress Note [...] code time is 42 minutes. Therapeutic exercise (59493): timed minutes 42, units 3 . NuStep [...] x 10 (N) . Provided today:. 04/18/22 [id number] HEP handout provided and reviewed patient demonstrated good understanding. 'Scores and Scales' Signatures Electronically signed by : Quin Li BIAS MACHINE OPERATOR; Apr 18 2022 12:31PM EST (Author) Electronically signed by : Lorena Ochoa PT; Apr 18 2022 1:57PM EST Normal [facility] PT Initial Evaluationon 06-0 PT Initial Evaluation Therapy Diagnosis Assessed Muscle [...] symptoms; BANDAR = N; Verified Transmission to [facility]/PHARMACY #6175; Last Updated By: L'Idealist; 03/29/2022 11:57:57 AM COPD (chronic obstructive pulmonary disease) Renew: Ventolin HFA 108 (90 Base) MCG/ACT Inhalation Aerosol Solution (Albuterol Sulfate HFA); USE 2 PUFFS EVERY 6 HOURS FOR SHORTNESS OF BREATH OR WHEEZING Rx By: Phylils Mae; Dispense: 0 Days ; #:1 X 8 GM Inhaler; Refill: 11;For: COPD (chronic obstructive pulmonary disease); BANDAR = N; Verified Transmission to [facility] #6175; Last Updated By: L'Idealist; 03/29/2022 11:57:54 AM Essential tremor, H/O ETOH abuse, H/O: CVA (cerebrovascular accident) Neurology - General Referral Evaluation and Treatment Evaluate AND Treat, PT WANTS TO GO TO [facility] Status: Hold For - Scheduling Requested for: [id number] Ordered;For: Essential tremor, H/O ETOH abuse, H/O: CVA (cerebrovascular accident); Ordered By: Phyllis Mae Performed: Due: [id number] H/O: CVA (cerebrovascular accident) Renew: Clopidogrel Bisulfate 75 MG Oral Tablet; Take 1 tablet daily Rx By: Phyllis Mae; Dispense: 0 Days ; #:90 Tablet; Refill: 3;For: H/O: CVA (cerebrovascular accident); BANDAR = N; Verified Transmission to [facility] #6175; Last Updated By: L'Idealist; 03/29/2022 11:57:50 AM Hypertension associated with type 2 diabetes mellitus Renew: Labetalol HCl - 100 MG Oral Tablet; TAKE 1 TABLET EVERY 12 HOURS DAILY Rx By: Phyllis Mae; Dispense: 90 Days ; #:180 Tablet; Refill: 3;For: Hypertension associated with type 2 diabetes mellitus; BANDAR = N; Verified Transmission to [facility] #6175; Last Updated By: L'Idealist; 03/29/2022 11:57:54 AM Hypertriglyceridemia Renew: Fenofibrate 54 MG Oral Tablet; TAKE 1 TABLET DAILY Rx By: Phyllis Mae; Dispense: 90 Days ; #:90 Tablet; Refill: 3;For: Hypertriglyceridemia; BANDAR = N; Verified Transmission to [facility] #6175; Last Updated By: L'Idealist; 03/29/2022 11:57:54 AM Patient Discussion/Summary 3 MON. CMP, HGBA1C(TO [facility]) Provider Impressions ADVISED FOR FALL PRECAUTION, ADVISED [...] no in (more content not included)... Normal [employer] Tobacco Screening.on 022 Fall risk assessment a) No falls within the last year [facility] Internal Medicine Work Phone: Tobacco use status [facility] a) Yes [facility] Internal Medicine Work Phone: Tobacco [...] Evaluate AND Treat, PT WANTS IT AT [facility] Status: Complete Done: [id number] Ordered; For: DJD (degenerative joint disease), cervical, H/O: CVA (cerebrovascular accident), Muscle weakness of lower extremity; Ordered By: Phyllis Mae Performed: Due: [id number]; Last Updated By: Jillian Can; 03/01/2022 2:39:34 [facility] Monday03/15/2022 AT 1130AM ARRIVE AT 1115AM. PT WANTS AT [facility] AND WILL CALL BACK TO SCHEDULE AFTER SHE CHECKS HER SCHEDULE Hyperlipemia Renew: Atorvastatin Calcium 20 MG Oral Tablet; TAKE 1 TABLET DAILY Rx By: Phyllis Mae; Dispense: 90 Days ; #:90 Tablet; Refill: 3; For: Hyperlipemia; BANDAR = N; Verified Transmission to [facility][id number]; Last Updated By: [employer]; 03/01/2022 1:38:38 PM Patient Discussion/Summary 1 MON FAX THE RESULT OF CAROTID DOPPLER AND U/S OF ABDOMINAL AORTA DR MARTINEZ AT [facility] HE[facility]ULAR Provider Impressions TEST RESULTS [...] (K80.20) Chroni (more content not included)... Normal [employer] Tobacco Screening.on 022 Fall risk assessment a) No falls within the last year [facility] Internal Medicine Work Phone: Tobacco use status [facility] a) Yes [facility] Internal Medicine Work Phone: Tobacco [...] risk factors: none. LAB F/U (DONE BY 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 ) . MEDICARE WELLNESS EXAM.. CRF , [...] more fall s in the last year [facility] Work Phone: Tobacco use status [facility] a) Yes [facility] Work Phone: Tobacco Screening. Yes [facility] Work Phone: Tobacco Screening.on 021 Fall risk assessment b) One or more fall s in the last year [facility] Work Phone: Tobacco use status [facility] a) Yes [facility] Work Phone: Tobacco Screening. Yes [facility] Work Phone: Complete Blood Count + Diffe ilanaon 09-29-2021 Basophils/100 WBC (Bld) 1.7 % 0.0 - 2.0 [facility] Work Phone: Erythrocyte distribution width (RBC) [Ratio] 13.7 % See Below [facility] Work Phone: Comment on above: Reference Range: 11. 5 - 14.5 Hematocrit (Bld) [Volume fraction] 42.5 % See Below [facility] Work Phone: Comment on above: Reference Range: 41. 0 - 52.0 Hemoglobin (Bld) [Mass/Vol] 14.0 g/dL See Below [facility] Work Phone: Comment on above: Reference Range: 13. 5 - 17.5 Lymphocytes/100 WBC (Bld) 38.5 % See Below [facility] Work Phone: Comment on above: Reference Range: 13. 0 - 44.0 MCHC (RBC) [Mass/Vol] 32.9 g/dL See Below [facility] Work Phone: Comment on above: Reference Range: 32. 0 - 36.0 MCV (RBC) [Entitic vol] 110 fL above hi gh threshold 80 - 100 [facility] Work Phone: Monocytes/100 WBC (Bld) 10.2 % 2.0 - 10.0 M [facility] Work Phone: Neutrophils/100 WBC (Bld) 45.4 % See Below [facility] Work Phone: Comment on above: Reference Range: 40. 0 - 80.0 Platelets (Bld) [#/Vol] 235 10*3/uL 150 - 450 [facility] Work Phone: RBC (Bld) [#/Vol] 3.86 {x10E12/L} below low threshold See Below [facility] Work Phone: Comment on above: Reference Range: 4.5 0 - 5.90 WBC (Bld) [#/Vol] 7.1 10*3/uL 4.4 - 11.3 [facility] Work Phone: Complete Blood Count + Differential 0.10 {x10E9/L} See Below [facility] Work Phone: Comment on above: Reference Range: 0.0 0 - 0.10 Complete Blood Count + Differential 0.30 {x10E9/L} See Below [facility] Work Phone: Comment on above: Reference Range: 0.0 0 - 0.40 Complete Blood Count + Differential 0.70 {x10E9/L} See Below [facility] Work Phone: Comment on above: Reference Range: 0.0 5 - 0.80 Complete Blood Count + Differential 2.70 {x10E9/L} See Below [facility] Work Phone: Comment on above: Reference Range: 0.8 0 - 3.00 Complete Blood Count + Differential 3.20 {x10E9/L} See Below [facility] Work Phone: Comment on above: Reference Range: 1.6 0 - 5.50 Percent differential counts (%) should be interpreted in the context of the absolute cell counts (cells/L). Complete Blood Count + Differential 4.2 % 0.0 - 6.0 [facility] Work Phone: Complete Blood Count + Differential 0.1 {/100_WBC} [facility] Work Phone: Laboratory - Chemistry and C hemistry - challengeon 09-29-2021 Albumin BCP dye [Mass/Vol] 4.2 g/dL 3.4 - 5.0 [facility] Work Phone: ALP [Catalytic activity/Vol] 82 U/L 33 - 136 [facility] Work Phone: ALT With P-5'-P [Catalytic activity/Vol] 13 U/L 10 - 52 [facility] Work Phone: Comment on above: Patients treated wit h Sulfasalazine may generate falsely decreased results for ALT. Anion gap [Moles/Vol] 18 mmol/L 10 - 20 [facility] Work Phone: AST With P-5'-P [Catalytic activity/Vol] 16 U/L 9 - 39 [facility] Work Phone: Bilirubin [Mass/Vol] 0.4 mg/dL 0.0 - 1.2 [facility] Work Phone: Calcium [Mass/Vol] 9.7 mg/dL 8.6 - 10.3 [facility] Work Phone: Chloride [Moles/Vol] 104 mmol/L 98 - 107 [facility] Internal Medicine Work Phone: CO2 [Moles/Vol] 22 mmol/L 21 - 32 [facility] Internal Medicine Work Phone: Creatinine [Mass/Vol] 1.71 mg/dL above high threshold See Below [facility] Work Phone: Comment on above: Reference Range: 0.5 0 - 1.30 Glucose [Mass/Vol] 149 mg/dL above high threshold 74 - 99 [facility] Work Phone: Potassium [Moles/Vol] 4.4 mmol/L 3.5 - 5.3 [facility] Work Phone: Protein [Mass/Vol] 7.3 g/dL 6.4 - 8.2 [facility] Work Phone: Sodium [Moles/Vol] 140 mmol/L 136 - 145 [facility] Work Phone: Urea nitrogen [Mass/Vol] 24 mg/dL above high threshold 6 - 23 [facility] Work Phone: Lipid Panelon 09-29-2021 Cholesterol [Mass/Vol] 217 mg/dL above hig h threshold 0 - 199 [facility] Work Phone: Comment on above: . [...] dosing. Cholesterol in HDL [Mass/Vol] 47.0 mg/dL [facility] Work Phone: Comment on above: . AGE VERY LOW LOW N ORMAL HIGH 0-19 Y < 35 < 40 40-45 ---- 20-24 Y ---- < 40 >45 ---- >24 Y ---- < 40 40-60 >60. Cholesterol in LDL [Mass/Vol] - 0 - 99 [facility] Internal Medicine Work Phone: Comment on above: . NEAR [...] sterol in HDL [Mass ratio] 4.6 {ratio} [facility] Work Phone: Comment on above: REF VALUESDESIRABLE < 3.4HIGH RISK > 5.0 Triglyceride [Mass/Vol] 582 mg/dL above hi gh threshold 0 - 149 [facility] Work Phone: Comment on above: . [...] Lipid Panel SEE COMMENT 0 - 40 [facility] Internal Medicine Work Phone: Comment on above: Unable to calculate VLDL. No Panel Informationon 09-29 47 {mL/min/1.73m2} Abnormal >60 [facility] Work Phone: Comment on above: CALCULATIONS OF TELMA MATED GFR ARE PERFORMED USING THE MDRD STUDY EQUATION FOR THE IDMS-TRACEABLE CREATININE METHODS. CLIN CHEM 2007;53:766-72 39 {mL/min/1.73m2} Abnormal >60 [facility] Work Phone: NORMAL [facility] Work Phone: Tobacco Screening.on 021 Fall risk assessment b) One or more fall s in the last year [facility] Work Phone: Tobacco use status [facility] a) Yes [facility] Work Phone: Tobacco Screening. Yes [facility] Work Phone: Folate, Serumon 09-08-2021 Folate [Mass/Vol] 11.3 ng/mL >5.0 [facility] Work Phone: Comment on above: Low <3.4Borderline 3 .4-5.0Normal >5.0. Patients receiving more than 5 mg/day of biotin may have interference in test results. A sample should be taken no sooner than eight hours after previous dose. Contact the testing laboratory for additional information. Magnesium, Serumon Magnesium [Mass/Vol] 2.03 mg/dL See Below [facility] Work Phone: Comment on above: Reference Range: 1.6 0 - 2.40 Vitamin B12, Serumon Cobalamin (Vitamin B12) [Mass/Vol] 397 pg/mL 211 - 911 [facility] Work Phone: Tobacco Screening.on Fall risk assessment b) One or more fall s in the last year [facility] Work Phone: Tobacco use status [facility] a) Yes [facility] Work Phone: Tobacco Screening. Yes [facility] Work Phone: Albumin, Serumon 08-16-2021 Albumin BCP dye [Mass/Vol] 4.2 g/dL 3.4 - 5.0 [facility] [place] Work Phone: Bicarbonate, Serumon 021 CO2 [Moles/Vol] 21 mmol/L 21 - 32 [facility] [address] [place] Work Phone: Blood Urea Nitrogen, Serumon 08-16-2021 Urea nitrogen [Mass/Vol] 33 mg/dL above high threshold 6 - 23 [facility] [address] [place] Work Phone: Calcium, Serumon 08-16-2021 Calcium [Mass/Vol] 9.4 mg/dL 8.6 - 10.3 [facility] [address] [place] Work Phone: Chloride, Serumon 08-16-2021 Chloride [Moles/Vol] 105 mmol/L 98 - [facility] [address] [place] Work Phone: Creatinine, Serumon 08-16-20 21 Creatinine [Mass/Vol] 1.85 mg/dL above high threshold See Below [facility] [place] [address] [place] Work Phone: Comment on above: Reference Range: 0.5 0 - 1.30 Creatinine, Serum 44 {mL/min/1.73m2} Abnormal >60 [facility] [place] [address] [place] Work Phone: Comment on above: CALCULATIONS OF TELMA MATED GFR ARE PERFORMED USING THE MDRD STUDY EQUATION FOR THE IDMS-TRACEABLE CREATININE METHODS. CLIN CHEM 2007;53:766-72 Creatinine, Serum 36 {mL/min/1.73m2} Abnormal >60 [facility] [address] [place] Work Phone: Laboratory - Chemistry and C hemistry - challengeon 08-16-2021 Anion gap [Moles/Vol] 18 mmol/L 10 - 20 [facility] [place] [address] [place] Work Phone: Potassium [Moles/Vol] 4.9 mmol/L 3.5 - 5.3 [facility] [place] [address] [place] Work Phone: Magnesium, Serumon Magnesium [Mass/Vol] 2.04 mg/dL See Below [facility] [address] [place] Work Phone: Comment on above: Reference Range: 1.6 0 - 2.40 Parathormone Intact, Serumon 08-16-2021 Parathyrin.intact [Mass/Vol] 22.3 pg/mL See Below [facility] [address] [place] Work Phone: Comment on above: Reference Range: 18. 5 - 88.0 Phosphorus, Serumon 08-16-20 Phosphate [Mass/Vol] 5.0 mg/dL above high threshold 2.5 - 4.9 [facility] [address] [place] Work Phone: Comment on above: The performance cassi acteristics of phosphorus testing in heparinized plasma have been validated by the individual laboratory site where testing is performed. Testing on heparinized plasma is not approved by the FDA; however, such approval is not necessary. Sodium, Serumon 08-16-2021 Sodium [Moles/Vol] 139 mmol/L 136 - 145 [facility] [address] [place] Work Phone: Total Protein, Urine Spoton 08-16-2021 Creatinine (U) [Mass/Vol] Canceled [facility] [address] [place] Work Phone: Protein (U) [Mass/Vol] Canceled [facility] [address] [place] Work Phone: Protein/Creatinine (U) [Ratio] Canceled [facility] [address] [place] Work Phone: HbA1c (Bld) [Mass fraction]O rdered By: Akila Carroll on 08-03-2021 Interpretation and review of laboratory results Normal [facility] POC Hemoglobin [id number] By : Akila Carroll on 08-03-2021 HbA1c (Bld) [Mass fraction] 5.9 % 4.0 - 6.0 % [facility] Tobacco Screening.on 021 Fall risk assessment a) No falls within the last year [facility] Internal Medicine Work Phone: Tobacco use status [facility] a) Yes M [facility] Work Phone: Tobacco Screening. Yes [facility] Work Phone: Laboratory - Drug toxicology on 06-24-2021 Amphetamines Screen Ql Negative Cutoff 20 [facility] [place] Work Phone: Barbiturates Screen Ql Negative Cutoff 50 [facility] Work Phone: Benzodiazepines Screen Ql Negative Cutoff 50 [facility] Work Phone: Cannabinoids Screen Ql Negative Cutoff 20 [facility] Work Phone: Cocaine Screen Ql Negative Cutoff 20 [facility] Work Phone: Methadone Screen Ql Negative Cutoff 25 [facility] [place] Work Phone: Methamphetamine Ql Negative Cutoff 20 [facility] [place] Work Phone: Opiates Screen Ql Negative Cutoff 20 [facility] Work Phone: oxyCODONE Ql Negative Cutoff 20 [facility] Work Phone: Phencyclidine Screen Ql Negative Cutoff 10 [facility] [place] Work Phone: No Panel Informationon 06-24 Annotation comment [Interpretation] Narrative See Note [facility] Work Phone: Comment on above: INTERPRETIVE INFORMA [...] developed and its performance characteristics determined by [facility]. It has not been cleared or approved by the [place] Food and Drug Administration. This test was performed in a CLIA certified laboratory and is intended for clinical purposes.Performed By: [facility] [place] [id number] Director: Laurie Chavez MD Negative Cutoff 1 [facility] Work Phone: Complete Blood Count + Diffe rentialon 06-21-2021 Basophils/100 WBC (Bld) 2.2 % 0.0 - 2.0 M [facility] Work Phone: Erythrocyte distribution width (RBC) [Ratio] 17.3 % above high threshold See Below [facility] Work Phone: Comment on above: Reference Range: 11. 5 - 14.5 Hematocrit (Bld) [Volume fraction] 37.6 % below low threshold See Below [facility] Work Phone: Comment on above: Reference Range: 41. 0 - 52.0 Hemoglobin (Bld) [Mass/Vol] 12.4 g/dL below low threshold See Below [facility] Work Phone: Comment on above: Reference Range: 13. 5 - 17.5 Lymphocytes/100 WBC (Bld) 27.3 % See Below [facility] Work Phone: Comment on above: Reference Range: 13. 0 - 44.0 MCHC (RBC) [Mass/Vol] 32.9 g/dL See Below [facility] Work Phone: Comment on above: Reference Range: 32. 0 - 36.0 MCV (RBC) [Entitic vol] 108 fL above hi gh threshold 80 - 100 [facility] Work Phone: Monocytes/100 WBC (Bld) 7.2 % 2.0 - 10.0 M [facility] Work Phone: Neutrophils/100 WBC (Bld) 56.5 % See Below [facility] Work Phone: Comment on above: Reference Range: 40. 0 - 80.0 Platelets (Bld) [#/Vol] 282 10*3/uL 150 - 450 [facility] Work Phone: RBC (Bld) [#/Vol] 3.49 {x10E12/L} below low threshold See Below [facility] Work Phone: Comment on above: Reference Range: 4.5 0 - 5.90 WBC (Bld) [#/Vol] 6.4 10*3/uL 4.4 - 11.3 [facility] Work Phone: Complete Blood Count + Differential 0.10 {x10E9/L} See Below [facility] Work Phone: Comment on above: Reference Range: 0.0 0 - 0.10 Complete Blood Count + Differential 0.40 {x10E9/L} See Below [facility] Work Phone: Comment on above: Reference Range: 0.0 0 - 0.40 Complete Blood Count + Differential 0.50 {x10E9/L} See Below [facility] Work Phone: Comment on above: Reference Range: 0.0 5 - 0.80 Complete Blood Count + Differential 1.80 {x10E9/L} See Below [facility] Work Phone: Comment on above: Reference Range: 0.8 0 - 3.00 Complete Blood Count + Differential 3.60 {x10E9/L} See Below [facility] Work Phone: Comment on above: Reference Range: 1.6 0 - 5.50 Percent differential counts (%) should be interpreted in the context of the absolute cell counts (cells/L). Complete Blood Count + Differential 6.8 % 0.0 - 6.0 [facility] Work Phone: Complete Blood Count + Differential 0.1 {/100_WBC} [facility] Work Phone: Ferritin, Serumon 06-21-2021 Ferritin [Mass/Vol] 183 ug/L 20 - 300 [facility] Internal Medicine Work Phone: Folate, Serumon 06-21-2021 Folate [Mass/Vol] 10.2 ng/mL >5.0 [facility] Work Phone: Comment on above: Low <3.4Borderline 3 .4-5.0Normal >5.0. Patients receiving more than 5 mg/day of biotin may have interference in test results. A sample should be taken no sooner than eight hours after previous dose. Contact the testing laboratory for additional information. Laboratory - Chemistry and C hemistry - challengeon 06-21-2021 Albumin BCP dye [Mass/Vol] 3.9 g/dL 3.4 - 5.0 [facility] Work Phone: ALP [Catalytic activity/Vol] 103 U/L 33 - 136 [facility] Work Phone: ALT With P-5'-P [Catalytic activity/Vol] 12 U/L 10 - 52 [facility] Work Phone: Comment on above: Patients treated wit h Sulfasalazine may generate falsely decreased results for ALT. Anion gap [Moles/Vol] 13 mmol/L 10 - 20 [facility] Work Phone: AST With P-5'-P [Catalytic activity/Vol] 14 U/L 9 - 39 [facility] Work Phone: Bilirubin [Mass/Vol] 0.3 mg/dL 0.0 - 1.2 [facility] Work Phone: Calcium [Mass/Vol] 9.5 mg/dL 8.6 - 10.3 [facility] Work Phone: Chloride [Moles/Vol] 105 mmol/L 98 - 107 [facility] Work Phone: CO2 [Moles/Vol] 22 mmol/L 21 - 32 [facility] Internal Medicine Work Phone: Creatinine [Mass/Vol] 1.38 mg/dL above high threshold See Below [facility] Work Phone: Comment on above: Reference Range: 0.5 0 - 1.30 Glucose [Mass/Vol] 164 mg/dL above high threshold 74 - 99 [facility] Work Phone: Iron [Mass/Vol] 60 ug/dL 35 - 150 [facility] Work Phone: Iron binding capacity [Mass/Vol] 336 ug/dL 240 - 445 [facility] Work Phone: Potassium [Moles/Vol] 4.5 mmol/L 3.5 - 5.3 [facility] Work Phone: Protein [Mass/Vol] 6.9 g/dL 6.4 - 8.2 [facility] Work Phone: Sodium [Moles/Vol] 135 mmol/L below low threshold 136 - 145 [facility] Work Phone: Urea nitrogen [Mass/Vol] 27 mg/dL above high threshold 6 - 23 [facility] Work Phone: Magnesium, Serumon 1 Magnesium [Mass/Vol] 1.94 mg/dL See Below -[facility] Work Phone: Comment on above: Reference Range: 1.6 0 - 2.40 No Panel Informationon 06-21 62 {mL/min/1.73m2} >60 [facility] Work Phone: Comment on above: CALCULATIONS OF TELMA MATED GFR ARE PERFORMED USING THE MDRD STUDY EQUATION FOR THE IDMS-TRACEABLE CREATININE METHODS. CLIN CHEM 2007;53:766-72 51 {mL/min/1.73m2} Abnormal >60 [facility] Work Phone: 18 % below low threshold 25 - 45 [facility] Work Phone: NORMAL [facility] Work Phone: Radiologyon 06-21-2021 XR Cervical spine 4 Views Normal [facility] Work Phone: No Panel Informationon 06-14 Normal [facility] Work Phone: Tobacco Screening.on 021 Fall risk assessment b) One or more fall s in the last year [facility] Work Phone: Tobacco use status [facility] a) Yes M [facility] Work Phone: Tobacco Screening. Yes [facility] Work Phone: Glucose (Bld) [Mass/Vol]Orde red By: Bryce Alvarez on 05-11-2021 Glucose [Mass/Vol] 156 mg/dL High 65 - 99 mg/dL [facility] Interpretation and review of laboratory results Abnormal [facility] Glucose [Mass/Vol] 64 mg/dL Low 65 - 99 mg/dL [facility] Interpretation and review of laboratory results Abnormal [facility] Glucose [Mass/Vol] 81 mg/dL 65 - 99 mg/dL [facility] Interpretation and review of laboratory results Normal [facility] Glucose (Bld) [Mass/Vol]Orde red By: Bryce Alvarez on 05-10-2021 Glucose [Mass/Vol] 146 mg/dL High 65 - 99 mg/dL [facility] Interpretation and review of laboratory results Abnormal [facility] Glucose [Mass/Vol] 86 mg/dL 65 - 99 mg/dL [facility] Interpretation and review of laboratory results Normal [facility] Glucose [Mass/Vol] 198 mg/dL High 65 - 99 mg/dL [facility] Interpretation and review of laboratory results Abnormal [facility] Glucose [Mass/Vol] 134 mg/dL High 65 - 99 mg/dL [facility] Interpretation and review of laboratory results Abnormal [facility] Glucose [Mass/Vol] 97 mg/dL 65 - 99 mg/dL [facility] Interpretation and review of laboratory results Normal [facility] Basic metabolic 2000 panelOr dered By: Bryce Alvarez on 05-09-2021 Anion gap [Moles/Vol] 10 mmol/L 10 - 2 0 mmol/L [facility] Calcium [Mass/Vol] 8.5 mg/dL 8.4 - 10. 2 mg/dL [facility] Chloride [Moles/Vol] 110 mmol/L High 98 - 10 8 mmol/L [facility] Creatinine [Mass/Vol] 1.57 mg/dL High 0.80 - 1.30 [facility] GFR/1.73 sq M.predicted CKD-EPI (S/P/Bld) [Vol rate/Area] 43 Low >=60 mL/min/1.73 m2 [facility] Glucose [Mass/Vol] 121 mg/dL High 65 - 99 mg/dL [facility] HCO3 [Moles/Vol] 23 mmol/L 21 - 32 mmol/L [facility] Interpretation and review of laboratory results Abnormal [facility] Potassium [Moles/Vol] 4.4 mmol/L 3.5 - 5.1 mmol/L [facility] Sodium [Moles/Vol] 139 mmol/L 135 - 145 mmol/L [facility] Urea nitrogen [Mass/Vol] 26 mg/dL High 8 - 25 mg/dL [facility] Urea nitrogen/Creatinine [Mass ratio] 16.6 mg/mg [facility] The eGFR should be u sed for monitoring renal function only and not for medication dosing. [facility] CBC WITH AUTO DIFFERENTIALOr dered By: Bryce Alvarez on 05-09-2021 Basophils (Bld) [#/Vol] 0.06 10*3/uL [facility] Basophils/100 WBC (Bld) 0.8 % O [facility] Eosinophils (Bld) [#/Vol] 0.31 10*3/uL [facility] Eosinophils/100 WBC (Bld) 4.1 % [facility] Erythrocyte distribution width (RBC) [Entitic vol] 14.1 % 11.6 - 14.8 % [facility] Hematocrit (Bld) [Volume fraction] 26.4 % Low 41.0 - 53.0 % [facility] Hemoglobin (Bld) [Mass/Vol] 8.6 g/dL Low 13.5 - 17.5 g/dL [facility] Immature granulocytes (Bld) [#/Vol] 0.09 10*3/uL [facility] Immature granulocytes/100 WBC (Bld) 1.20 % [facility] Comment on above: The IG parameter is the percentage of metamyelocytes, myelocytes and promyelocytes. An immature granulocyte count (IG) of 1% or more suggests the possibility of infection, an IG count of 3% is very likely related to an infection. Interpretation and review of laboratory results Abnormal [facility] Lymphocytes (Bld) [#/Vol] 2.55 10*3/uL [facility] Lymphocytes/100 WBC (Bld) 33.7 % [facility] MCH (RBC) [Entitic mass] 34.0 pg 26.0 - 34.0 pg [facility] MCHC (RBC) [Mass/Vol] 32.6 g/dL 31.0 - 37.0 g/dL [facility] MCV (RBC) [Entitic vol] 104.3 fL High 80.0 - 100.0 fL [facility] Monocytes (Bld) [#/Vol] 0.92 10*3/uL High [facility] Monocytes/100 WBC (Bld) 12.2 % [facility] Neutrophils (Bld) [#/Vol] 3.63 10*3/uL [facility] Neutrophils/100 WBC (Bld) 48.0 % [facility] Nucleated RBC (Bld) [#/Vol] 0.00 10*3/uL [facility] Nucleated RBC/100 WBC (Bld) [Ratio] 0.0 % [facility] Platelet mean volume (Bld) [Entitic vol] 10.9 fL 9.4 - 12.4 fL [facility] Platelets (Bld) [#/Vol] 265 10*3/uL [facility] RBC (Bld) [#/Vol] 2.53 10*6/uL Low [facility] WBC (Bld) [#/Vol] 7.56 10*3/uL [facility] Glucose (Bld) [Mass/Vol]Orde red By: Bryce Alvarez on 05-09-2021 Glucose [Mass/Vol] 239 mg/dL High 65 - 99 mg/dL [facility] Interpretation and review of laboratory results Abnormal [facility] Glucose [Mass/Vol] 93 mg/dL 65 - 99 mg/dL [facility] Interpretation and review of laboratory results Normal [facility] Glucose [Mass/Vol] 157 mg/dL High 65 - 99 mg/dL [facility] Interpretation and review of laboratory results Abnormal [facility] Glucose [Mass/Vol] 82 mg/dL 65 - 99 mg/dL [facility] Interpretation and review of laboratory results Normal [facility] Hepatic function 1999 panelO rdered By: Bryce Alvarez on 05-09-2021 Albumin [Mass/Vol] 2.5 g/dL Low 3.2 - 5.2 g/dL [facility] ALP [Catalytic activity/Vol] 156 U/L High 40 - 150 U/L [facility] ALT [Catalytic activity/Vol] 29 U/L 14 - 65 U/L [facility] AST [Catalytic activity/Vol] 21 U/L 0 - 45 U/L [facility] Bilirubin [Mass/Vol] 0.1 mg/dL 0.0 - 1 .3 mg/dL [facility] Bilirubin.conjugated [Mass/Vol] mg/dL 0.0 - 0.4 mg/dL [facility] Interpretation and review of laboratory results Abnormal [facility] Protein [Mass/Vol] 6.3 g/dL 6.0 - 8.0 g/dL [facility] Magnesium LevelOrdered By: Elton Alvarez on 05-09-2021 Magnesium [Mass/Vol] 1.8 mg/dL 1.6 - 2 .4 mg/dL [facility] Magnesium [Mass/Vol]Ordered By: Bryce Alvarez on 05-09-2021 Interpretation and review of laboratory results Normal [facility] Basic metabolic 1999 panelOr dered By: Bryce Alvarez on 05-08-2021 Anion gap [Moles/Vol] 15 mmol/L 10 - 2 0 mmol/L [facility] Calcium [Mass/Vol] 8.6 mg/dL 8.4 - 10. 2 mg/dL [facility] Chloride [Moles/Vol] 111 mmol/L High 98 - 10 8 mmol/L [facility] Creatinine [Mass/Vol] 1.66 mg/dL High 0.80 - 1.30 [facility] GFR/1.73 sq M.predicted CKD-EPI (S/P/Bld) [Vol rate/Area] 41 Low >=60 mL/min/1.73 m2 [facility] Glucose [Mass/Vol] 141 mg/dL High 65 - 99 mg/dL [facility] HCO3 [Moles/Vol] 19 mmol/L Low 21 - 32 mmol/L [facility] Interpretation and review of laboratory results Abnormal [facility] Potassium [Moles/Vol] 4.5 mmol/L 3.5 - 5.1 mmol/L [facility] Sodium [Moles/Vol] 140 mmol/L 135 - 145 mmol/L [facility] Urea nitrogen [Mass/Vol] 28 mg/dL High 8 - 25 mg/dL [facility] Urea nitrogen/Creatinine [Mass ratio] 16.9 mg/mg [facility] The eGFR should be u sed for monitoring renal function only and not for medication dosing. [facility] CBC WITH AUTO DIFFERENTIALOr dered By: Bryce Alvarez on 05-08-2021 Basophils (Bld) [#/Vol] 0.10 10*3/uL [facility] Basophils/100 WBC (Bld) 1.1 % [facility] Eosinophils (Bld) [#/Vol] 0.31 10*3/uL [facility] Eosinophils/100 WBC (Bld) 3.5 % [facility] Erythrocyte distribution width (RBC) [Entitic vol] 14.3 % 11.6 - 14.8 % [facility] Hematocrit (Bld) [Volume fraction] 26.7 % Low 41.0 - 53.0 % [facility] Hemoglobin (Bld) [Mass/Vol] 8.5 g/dL Low 13.5 - 17.5 g/dL [facility] Immature granulocytes (Bld) [#/Vol] 0.06 10*3/uL [facility] Immature granulocytes/100 WBC (Bld) 0.70 % [facility] Comment on above: The IG parameter is the percentage of metamyelocytes, myelocytes and promyelocytes. An immature granulocyte count (IG) of 1% or more suggests the possibility of infection, an IG count of 3% is very likely related to an infection. Interpretation and review of laboratory results Abnormal [facility] Lymphocytes (Bld) [#/Vol] 2.37 10*3/uL [facility] Lymphocytes/100 WBC (Bld) 26.7 % [facility] MCH (RBC) [Entitic mass] 34.0 pg 26.0 - 34.0 pg [facility] MCHC (RBC) [Mass/Vol] 31.8 g/dL 31.0 - 37.0 g/dL [facility] MCV (RBC) [Entitic vol] 106.8 fL High 80.0 - 100.0 fL [facility] Monocytes (Bld) [#/Vol] 1.04 10*3/uL High [facility] Monocytes/100 WBC (Bld) 11.7 % [facility] Neutrophils (Bld) [#/Vol] 5.01 10*3/uL [facility] Neutrophils/100 WBC (Bld) 56.3 % [facility] Nucleated RBC (Bld) [#/Vol] 0.00 10*3/uL [facility] Nucleated RBC/100 WBC (Bld) [Ratio] 0.0 % [facility] Platelet mean volume (Bld) [Entitic vol] 11.3 fL 9.4 - 12.4 fL [facility] Platelets (Bld) [#/Vol] 264 10*3/uL [facility] RBC (Bld) [#/Vol] 2.50 10*6/uL [facility] ealth WBC (Bld) [#/Vol] 8.89 10*3/uL [facility] Glucose (Bld) [Mass/Vol]Orde red By: Bryce Alvarez on 05-08-2021 Glucose [Mass/Vol] 145 mg/dL High 65 - 99 mg/dL [facility] Interpretation and review of laboratory results Abnormal [facility] Glucose [Mass/Vol] 163 mg/dL High 65 - 99 mg/dL [facility] Interpretation and review of laboratory results Abnormal [facility] Glucose [Mass/Vol] 92 mg/dL 65 - 99 mg/dL [facility] Interpretation and review of laboratory results Normal [facility] Glucose [Mass/Vol] 83 mg/dL 65 - 99 mg/dL [facility] Interpretation and review of laboratory results Normal [facility] Hepatic function 2000 panelO rdered By: Bryce Alvarez on 05-08-2021 Albumin [Mass/Vol] 2.6 g/dL Low 3.2 - 5.2 g/dL [facility] ALP [Catalytic activity/Vol] 168 U/L High 40 - 150 U/L [facility] ALT [Catalytic activity/Vol] 30 U/L 14 - 65 U/L [facility] AST [Catalytic activity/Vol] 18 U/L 0 - 45 U/L [facility] Bilirubin [Mass/Vol] 0.2 mg/dL 0.0 - 1 .3 mg/dL [facility] Bilirubin.conjugated [Mass/Vol] mg/dL 0.0 - 0.4 mg/dL [facility] Interpretation and review of laboratory results Abnormal [facility] Protein [Mass/Vol] 6.5 g/dL 6.0 - 8.0 g/dL [facility] Magnesium LevelOrdered By: Elton Alvarez on 05-08-2021 Magnesium [Mass/Vol] 1.9 mg/dL 1.6 - 2 .4 mg/dL [facility] Magnesium [Mass/Vol]Ordered By: Bryce Alvarez on 05-08-2021 Interpretation and review of laboratory results Normal [facility] Basic metabolic 2000 panelOr dered By: Bryce Alvarez on 05-07-2021 Anion gap [Moles/Vol] 10 mmol/L 10 - 2 0 mmol/L [facility] Calcium [Mass/Vol] 9.0 mg/dL 8.4 - 10. 2 mg/dL [facility] Chloride [Moles/Vol] 111 mmol/L High 98 - 10 8 mmol/L [facility] Creatinine [Mass/Vol] 1.68 mg/dL High 0.80 - 1.30 [facility] GFR/1.73 sq M.predicted CKD-EPI (S/P/Bld) [Vol rate/Area] 40 Low >=60 mL/min/1.73 m2 [facility] Glucose [Mass/Vol] 62 mg/dL Low 65 - 99 mg/dL [facility] Comment on above: [id number] CALLED ATTENT ION RESULT ON 05/07/2021 @ 0521 TO AND READ BACK BY [id number] in A37 HCO3 [Moles/Vol] 25 mmol/L 21 - 32 mmol/L [facility] Interpretation and review of laboratory results Abnormal [facility] Potassium [Moles/Vol] 4.6 mmol/L 3.5 - 5.1 mmol/L [facility] Sodium [Moles/Vol] 141 mmol/L 135 - 145 mmol/L [facility] Urea nitrogen [Mass/Vol] 27 mg/dL High 8 - 25 mg/dL [facility] Urea nitrogen/Creatinine [Mass ratio] 16.1 mg/mg [facility] The eGFR should be u sed for monitoring renal function only and not for medication dosing. [facility] CBC WITH AUTO DIFFERENTIALOr dered By: Bryce Alvarez on 05-07-2021 Basophils (Bld) [#/Vol] 0.08 10*3/uL [facility] Basophils/100 WBC (Bld) 1.1 % [facility] Eosinophils (Bld) [#/Vol] 0.30 10*3/uL [facility] Eosinophils/100 WBC (Bld) 4.1 % [facility] Erythrocyte distribution width (RBC) [Entitic vol] 14.2 % 11.6 - 14.8 % [facility] Hematocrit (Bld) [Volume fraction] 27.8 % Low 41.0 - 53.0 % [facility] Hemoglobin (Bld) [Mass/Vol] 9.0 g/dL Low 13.5 - 17.5 g/dL [facility] Immature granulocytes (Bld) [#/Vol] 0.10 10*3/uL [facility] Immature granulocytes/100 WBC (Bld) 1.40 % [facility] Comment on above: The IG parameter is the percentage of metamyelocytes, myelocytes and promyelocytes. An immature granulocyte count (IG) of 1% or more suggests the possibility of infection, an IG count of 3% is very likely related to an infection. Interpretation and review of laboratory results Abnormal [facility] Lymphocytes (Bld) [#/Vol] 2.65 10*3/uL [facility] Lymphocytes/100 WBC (Bld) 36.4 % [facility] MCH (RBC) [Entitic mass] 33.6 pg 26.0 - 34.0 pg [facility] MCHC (RBC) [Mass/Vol] 32.4 g/dL 31.0 - 37.0 g/dL [facility] MCV (RBC) [Entitic vol] 103.7 fL High 80.0 - 100.0 fL [facility] Monocytes (Bld) [#/Vol] 0.94 10*3/uL High [facility] Monocytes/100 WBC (Bld) 12.9 % [facility] Neutrophils (Bld) [#/Vol] 3.21 10*3/uL [facility] Neutrophils/100 WBC (Bld) 44.1 % [facility] Nucleated RBC (Bld) [#/Vol] 0.00 10*3/uL [facility] Nucleated RBC/100 WBC (Bld) [Ratio] 0.0 % [facility] Platelet mean volume (Bld) [Entitic vol] 10.6 fL 9.4 - 12.4 fL [facility] Platelets (Bld) [#/Vol] 279 10*3/uL [facility] RBC (Bld) [#/Vol] 2.68 10*6/uL Low [facility] ealth WBC (Bld) [#/Vol] 7.28 10*3/uL [facility] Glucose (Bld) [Mass/Vol]Orde red By: Bryce Alvarez on 05-07-2021 Glucose [Mass/Vol] 145 mg/dL High 65 - 99 mg/dL [facility] Interpretation and review of laboratory results Abnormal [facility] Glucose [Mass/Vol] 72 mg/dL 65 - 99 mg/dL [facility] Interpretation and review of laboratory results Normal [facility] Glucose [Mass/Vol] 170 mg/dL High 65 - 99 mg/dL [facility] Interpretation and review of laboratory results Abnormal [facility] Glucose [Mass/Vol] 82 mg/dL 65 - 99 mg/dL [facility] Interpretation and review of laboratory results Normal [facility] Glucose [Mass/Vol] 93 mg/dL 65 - 99 mg/dL [facility] Interpretation and review of laboratory results Normal [facility] Hepatic function 2000 panelO rdered By: Bryce Alvarez on 05-07-2021 Albumin [Mass/Vol] 2.7 g/dL Low 3.2 - 5.2 g/dL [facility] ALP [Catalytic activity/Vol] 164 U/L High 40 - 150 U/L [facility] ALT [Catalytic activity/Vol] 30 U/L 14 - 65 U/L [facility] AST [Catalytic activity/Vol] 24 U/L 0 - 45 U/L [facility] Bilirubin [Mass/Vol] 0.2 mg/dL 0.0 - 1 .3 mg/dL [facility] Bilirubin.conjugated [Mass/Vol] 0.1 mg/dL 0.0 - 0.4 mg/dL [facility] Interpretation and review of laboratory results Abnormal [facility] Protein [Mass/Vol] 6.7 g/dL 6.0 - 8.0 g/dL [facility] Magnesium LevelOrdered By: Elton Alvarez on 05-07-2021 Magnesium [Mass/Vol] 2.0 mg/dL 1.6 - 2 .4 mg/dL [facility] Magnesium [Mass/Vol]Ordered By: Bryce Alvarez on 05-07-2021 Interpretation and review of laboratory results Normal [facility] RADIOLOGY SCANSOrdered By: Cyndy Morales on 05-07-2021 Ordered by an unspecified provider. [facility] Glucose (Bld) [Mass/Vol]Orde red By: Bryce Alvarez on 05-06-2021 Glucose [Mass/Vol] 96 mg/dL 65 - 99 mg/dL [facility] Interpretation and review of laboratory results Normal [facility] Glucose [Mass/Vol] 107 mg/dL High 65 - 99 mg/dL [facility] Interpretation and review of laboratory results Abnormal [facility] Glucose [Mass/Vol] 104 mg/dL High 65 - 99 mg/dL [facility] Interpretation and review of laboratory results Abnormal [facility] Glucose [Mass/Vol] 73 mg/dL 65 - 99 mg/dL [facility] Interpretation and review of laboratory results Normal [facility] Basic metabolic 2000 panelOr dered By: Bryce Alvarez on 05-05-2021 Anion gap [Moles/Vol] 10 mmol/L 10 - 2 0 mmol/L [facility] Calcium [Mass/Vol] 8.9 mg/dL 8.4 - 10. 2 mg/dL [facility] Chloride [Moles/Vol] 109 mmol/L High 98 - 10 8 mmol/L [facility] Creatinine [Mass/Vol] 1.52 mg/dL High 0.80 - 1.30 [facility] GFR/1.73 sq M.predicted CKD-EPI (S/P/Bld) [Vol rate/Area] 45 Low >=60 mL/min/1.73 m2 [facility] Glucose [Mass/Vol] 122 mg/dL High 65 - 99 mg/dL [facility] HCO3 [Moles/Vol] 26 mmol/L 21 - 32 mmol/L [facility] Interpretation and review of laboratory results Abnormal [facility] Potassium [Moles/Vol] 4.7 mmol/L 3.5 - 5.1 mmol/L [facility] Sodium [Moles/Vol] 140 mmol/L 135 - 145 mmol/L [facility] Urea nitrogen [Mass/Vol] 19 mg/dL 8 - 25 mg/dL [facility] Urea nitrogen/Creatinine [Mass ratio] 12.5 mg/mg [facility] The eGFR should be u sed for monitoring renal function only and not for medication dosing. [facility] CBC WITH AUTO DIFFERENTIALOr dered By: Bryce Alvarez on 05-05-2021 Basophils (Bld) [#/Vol] 0.06 10*3/uL [facility] Basophils/100 WBC (Bld) 0.7 % [facility] Eosinophils (Bld) [#/Vol] 0.34 10*3/uL [facility] Eosinophils/100 WBC (Bld) 3.9 % [facility] Erythrocyte distribution width (RBC) [Entitic vol] 14.4 % 11.6 - 14.8 % [facility] Hematocrit (Bld) [Volume fraction] 28.9 % Low 41.0 - 53.0 % [facility] Hemoglobin (Bld) [Mass/Vol] 9.2 g/dL Low 13.5 - 17.5 g/dL [facility] Immature granulocytes (Bld) [#/Vol] 0.10 10*3/uL [facility] Immature granulocytes/100 WBC (Bld) 1.10 % [facility] Comment on above: The IG parameter is the percentage of metamyelocytes, myelocytes and promyelocytes. An immature granulocyte count (IG) of 1% or more suggests the possibility of infection, an IG count of 3% is very likely related to an infection. Interpretation and review of laboratory results Abnormal [facility] Lymphocytes (Bld) [#/Vol] 2.30 10*3/uL [facility] Lymphocytes/100 WBC (Bld) 26.3 % [facility] MCH (RBC) [Entitic mass] 33.6 pg 26.0 - 34.0 pg [facility] MCHC (RBC) [Mass/Vol] 31.8 g/dL 31.0 - 37.0 g/dL [facility] MCV (RBC) [Entitic vol] 105.5 fL High 80.0 - 100.0 fL [facility] Monocytes (Bld) [#/Vol] 0.93 10*3/uL High [facility] Monocytes/100 WBC (Bld) 10.7 % [facility] Neutrophils (Bld) [#/Vol] 5.00 10*3/uL [facility] Neutrophils/100 WBC (Bld) 57.3 % [facility] Nucleated RBC (Bld) [#/Vol] 0.00 10*3/uL [facility] Nucleated RBC/100 WBC (Bld) [Ratio] 0.0 % [facility] Platelet mean volume (Bld) [Entitic vol] 11.1 fL 9.4 - 12.4 fL [facility] Platelets (Bld) [#/Vol] 294 10*3/uL [facility] RBC (Bld) [#/Vol] 2.74 10*6/uL Low [facility] ealth WBC (Bld) [#/Vol] 8.73 10*3/uL [facility] Glucose (Bld) [Mass/Vol]Orde red By: Bryce Alvarez on 05-05-2021 Glucose [Mass/Vol] 90 mg/dL 65 - 99 mg/dL [facility] Interpretation and review of laboratory results Normal [facility] Glucose [Mass/Vol] 149 mg/dL High 65 - 99 mg/dL [facility] Interpretation and review of laboratory results Abnormal [facility] Glucose [Mass/Vol] 98 mg/dL 65 - 99 mg/dL [facility] Interpretation and review of laboratory results Normal [facility] Glucose [Mass/Vol] 128 mg/dL High 65 - 99 mg/dL [facility] Interpretation and review of laboratory results Abnormal [facility] US RENAL AND BLADDEROrdered By: Bryce Alvarez on 05-05-2021 No hydronephrosis or nephrolithiasis. Nonspecific trace perinephric fluid. Moderate postvoid residual volume, 107 mL. [employer] Workstation ID: [id number] [facility] EXAMINATION: US RENAL AND BLADDER HISTORY: [...] Moderate postvoid residual volume of 107 mL. [facility] Interface, Rad In Abel ji Speechq - 05/05/2021 7:57 PM EDT [...] fluid. Moderate postvoid residual volume, [address] Workstation ID: [id number] [facility] Basic metabolic 2000 panelOr dered By: Bryce Alvarez on 05-04-2021 Anion gap [Moles/Vol] 9 mmol/L Low 10 - 2 0 mmol/L [facility] Calcium [Mass/Vol] 9.0 mg/dL 8.4 - 10. 2 mg/dL [facility] Chloride [Moles/Vol] 112 mmol/L High 98 - 10 8 mmol/L [facility] Creatinine [Mass/Vol] 1.56 mg/dL High 0.80 - 1.30 [facility] GFR/1.73 sq M.predicted CKD-EPI (S/P/Bld) [Vol rate/Area] 44 Low >=60 mL/min/1.73 m2 [facility] Glucose [Mass/Vol] 70 mg/dL 65 - 99 mg/dL [facility] Comment on above: [id number] CALLED ATTENT ION RESULT ON 05/04/2021 @ 0620 TO AND READ BACK BY [id number] in TOWER3 HCO3 [Moles/Vol] 25 mmol/L 21 - 32 mmol/L [facility] Interpretation and review of laboratory results Abnormal [facility] Potassium [Moles/Vol] 4.5 mmol/L 3.5 - 5.1 mmol/L [facility] Sodium [Moles/Vol] 141 mmol/L 135 - 145 mmol/L [facility] Urea nitrogen [Mass/Vol] 19 mg/dL 8 - 25 mg/dL [facility] Urea nitrogen/Creatinine [Mass ratio] 12.2 mg/mg [facility] The eGFR should be u sed for monitoring renal function only and not for medication dosing. [facility] CBC WITH AUTO DIFFERENTIALOr dered By: Bryce Alvarez on 05-04-2021 Basophils (Bld) [#/Vol] 0.07 10*3/uL [facility] Basophils/100 WBC (Bld) 1.0 % [facility] Eosinophils (Bld) [#/Vol] 0.35 10*3/uL [facility] Eosinophils/100 WBC (Bld) 5.0 % [facility] Erythrocyte distribution width (RBC) [Entitic vol] 14.3 % 11.6 - 14.8 % [facility] Hematocrit (Bld) [Volume fraction] 27.9 % Low 41.0 - 53.0 % [facility] Hemoglobin (Bld) [Mass/Vol] 8.9 g/dL Low 13.5 - 17.5 g/dL [facility] Immature granulocytes (Bld) [#/Vol] 0.10 10*3/uL [facility] Immature granulocytes/100 WBC (Bld) 1.40 % [facility] Comment on above: The IG parameter is the percentage of metamyelocytes, myelocytes and promyelocytes. An immature granulocyte count (IG) of 1% or more suggests the possibility of infection, an IG count of 3% is very likely related to an infection. Interpretation and review of laboratory results Abnormal [facility] Lymphocytes (Bld) [#/Vol] 2.57 10*3/uL [facility] Lymphocytes/100 WBC (Bld) 36.7 % [facility] MCH (RBC) [Entitic mass] 33.6 pg 26.0 - 34.0 pg [facility] MCHC (RBC) [Mass/Vol] 31.9 g/dL 31.0 - 37.0 g/dL [facility] MCV (RBC) [Entitic vol] 105.3 fL High 80.0 - 100.0 fL [facility] Monocytes (Bld) [#/Vol] 0.92 10*3/uL High [facility] Monocytes/100 WBC (Bld) 13.1 % [facility] Neutrophils (Bld) [#/Vol] 2.99 10*3/uL [facility] Neutrophils/100 WBC (Bld) 42.8 % [facility] Nucleated RBC (Bld) [#/Vol] 0.00 10*3/uL [facility] Nucleated RBC/100 WBC (Bld) [Ratio] 0.0 % [facility] Platelet mean volume (Bld) [Entitic vol] 10.9 fL 9.4 - 12.4 fL [facility] Platelets (Bld) [#/Vol] 276 10*3/uL [facility] RBC (Bld) [#/Vol] 2.65 10*6/uL [facility] WBC (Bld) [#/Vol] 7.00 10*3/uL [facility] Glucose (Bld) [Mass/Vol]Orde red By: Bryce Alvarez on 05-04-2021 Glucose [Mass/Vol] 180 mg/dL High 65 - 99 mg/dL [facility] Interpretation and review of laboratory results Abnormal [facility] Glucose [Mass/Vol] 121 mg/dL High 65 - 99 mg/dL [facility] Interpretation and review of laboratory results Abnormal [facility] Glucose [Mass/Vol] 76 mg/dL 65 - 99 mg/dL [facility] Interpretation and review of laboratory results Normal [facility] Basic metabolic 2000 panelOr dered By: Bryce Alvarez on 05-03-2021 Anion gap [Moles/Vol] 15 mmol/L 10 - 2 0 mmol/L [facility] Calcium [Mass/Vol] 9.0 mg/dL 8.4 - 10. 2 mg/dL [facility] Chloride [Moles/Vol] 110 mmol/L High 98 - 10 8 mmol/L [facility] Creatinine [Mass/Vol] 1.56 mg/dL High 0.80 - 1.30 [facility] GFR/1.73 sq M.predicted CKD-EPI (S/P/Bld) [Vol rate/Area] 44 Low >=60 mL/min/1.73 m2 [facility] Glucose [Mass/Vol] 76 mg/dL 65 - 99 mg/dL [facility] HCO3 [Moles/Vol] 21 mmol/L 21 - 32 mmol/L [facility] Interpretation and review of laboratory results Abnormal [facility] Potassium [Moles/Vol] 4.7 mmol/L 3.5 - 5.1 mmol/L [facility] Sodium [Moles/Vol] 141 mmol/L 135 - 145 mmol/L [facility] Urea nitrogen [Mass/Vol] 19 mg/dL 8 - 25 mg/dL [facility] Urea nitrogen/Creatinine [Mass ratio] 12.2 mg/mg [facility] The eGFR should be u sed for monitoring renal function only and not for medication dosing. [facility] Creatinine [Mass/Vol]Ordered By: Melissa Collins on 05-03-2021 GFR/1.73 sq M.predicted CKD-EPI (S/P/Bld) [Vol rate/Area] 44 Low >=60 mL/min/1.73 m2 [facility] Interpretation and review of laboratory results Abnormal [facility] The eGFR should be u sed for monitoring renal function only and not for medication dosing. [facility] Creatinine, serumOrdered By: Melissa Collins on 05-03-2021 Creatinine [Mass/Vol] 1.56 mg/dL High 0.80 - 1.30 [facility] Glucose (Bld) [Mass/Vol]Orde red By: Bryce Alvarez on 05-03-2021 Glucose [Mass/Vol] 139 mg/dL High 65 - 99 mg/dL [facility] Interpretation and review of laboratory results Abnormal [facility] Glucose [Mass/Vol] 178 mg/dL High 65 - 99 mg/dL [facility] Interpretation and review of laboratory results Abnormal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 the imaging pmrew-kh-puyt. No pneumothorax, pleural effusion or focal air dense airspace consolidation. Scattered calcified pulmonary granulomas. Normal heart size. Scattered atherosclerotic changes of the aorta. Remote healed right posterior 4th rib fracture. No acute displaced rib fractures. [facility] 1. No acute cardiopulmonary process. 2. No acute displaced rib fractures. [employer] Workstation ID: [id number] [facility] US DOPPLER CAROTIDon 020 Non-Invasive Vascula r Patient: TONIO Oseguera Med Rec#: [id number] (Age): 1950(69y) Study Date: 12/04/2019 Room#: Type: Sex: M Reading: BRITTANY Reading: Cameron Munguia DO, RPVI Referring: FELICE JHAVERI Carbon Grinder: ALBERT INMAN Procedure Info: Study Quality: Carotid [...] appear to be warranted. Clinical correlation advised. Carbon Grinder's Comments:11/26/18 right ICA 0% ; left ICA [...] 12/04/2019 15:54:04 by: Cameron Munguia DO, RPVI [facility] Interface, Rad [facility]04[facility] 4:18 PM EST Non-Invasive Vascular Patient: TONIO Oseguera [facility] Rec#: [id number] (Age): 1950(69y) Study Date: 12/04/2019 Room#: Type: Sex: M Reading: BRITTANY Reading: Cameron Munguia DO, RPVI Referring: FELICE JHAVERI Carbon Grinder: ALBERT INMAN Procedure Info: Study Quality: Carotid [...] appear to be warranted. Clinical correlation advised. Carbon Grinder's Comments:11/26/18 right ICA 0% ; left ICA [...] 12/04/2019 15:54:04 by: Cameron Munguia DO, RPVI [facility] DOPPLER SEGMENTAL ARTERIA L LEGS W EXERCISEon 12-04-2019 Non-Invasive Vascula r Patient: TONIO ZAMORA [facility] Rec#: [id number] (Age): 1950(69y) Study Date: 12/04/2019 Room#: Type: Sex: M Reading: Cameron Munguia DO, RPVI Reading: BRITTANY Referring: Cameron Munguia D.O. Carbon Grinder: Albert Inman RVForrest Procedure Info: [id number] Study Quality: Lower Arterial Doppler: adequate Diagnosis: [...] in the left leg. Clinical correlation advised. Carbon Grinder's Comments:05/07/18 [place] right CLEMENCIA 1.13 ; left CLEMENCIA .84 [...] 12/04/2019 15:56:33 by: Cameron Munguia DO, RPVI [facility] Interface, Rad In Heartlab Xper Echopacs - 12/04/2019 4:18 PM EST Non-Invasive Vascular Patient: TONIO ZAMORA [facility] Rec#: [id number] (Age): 1950(69y) Study Date: 12/04/2019 Room#: Type: Sex: M Reading: Cameron Munguia DO, RPVI Reading: BRITTANY Referring: Cameron Munguia D.O. Carbon Grinder: Albert Inman RVT Procedure Info: [id number] Study Quality: Lower Arterial Doppler: adequate Diagnosis: [...] in the left leg. Clinical correlation advised. Carbon Grinder's Comments:05/07/18 [place] right CLEMENCIA 1.13 ; left CLEMENCIA .84 [...] 12/04/2019 15:56:33 by: Cameron Munguia DO, RPVI [facility] ECG 12-LEADon 06-05-2019 Bret Fuentes MD 06/05/2019 1:46 PM EKG 12-lead Date/Time: 06/05/2019 1:21 PM Performed by: Bret Fuentes MD Authorized by: Bret Fuentes MD Interpreted by ED attending physician Comparison: not compared with previous ECG Rhythm: sinus rhythm BPM: 72 Conduction: conduction normal T Waves: T waves normal normal FL interval normal QRS interval Clinical impression: normal ECG [facility] POC B-type natriuretic pepti de (BNP)on 06-05-2019 Interpretation and review of laboratory results Normal [facility] Natriuretic peptide B (Bld) [Mass/Vol] 97.3 pg/mL <100 [facility] POC Basic Metabolic Panelon 06-05-2019 Calcium [Mass/Vol] 8.9 mg/dL 8.4 - 10. 2 mg/dL [facility] Chloride [Moles/Vol] 105 mmol/L 98 - 10 8 mmol/L [facility] CO2 [Moles/Vol] 28 mmol/L 21 - 32 mmol/L [facility] Creatinine [Mass/Vol] 1.1 mg/dL 0.8 - 1.3 mg/dL [facility] Glucose [Mass/Vol] 81 mg/dL 65 - 99 mg/dL [facility] Interpretation and review of laboratory results Abnormal [facility] Potassium [Moles/Vol] 3.4 mmol/L Low 3.5 - 5.1 mmol/L [facility] Sodium [Moles/Vol] 141 mmol/L 135 - 145 mmol/L [facility] Urea nitrogen [Mass/Vol] 16 mg/dL 8 - 25 mg/dL [facility] POC CBC and Differentialon 0 06-05-2019 Comment See Comment Critically abnormal (none) [facility] Comment on above: CRITICAL. CBCD reord ered and sent to . Platelet count non reportable due to clumping. Erythrocyte distribution width (RBC) [Entitic vol] 12.3 % 11.6 - 14.8 % [facility] Comment on above: This is a corrected result. Previous result was 12.2 % on 06/05/2019 at 1312 EDT Hematocrit (Bld) [Volume fraction] 38.1 % Low 41 - 53 % [facility] Comment on above: This is a corrected result. Previous result was 36.7 % on 06/05/2019 at 1312 EDT Hemoglobin (Bld) [Mass/Vol] 13.2 g/dL Low 13.5 - 17.5 g/dL [facility] Comment on above: This is a corrected result. Previous result was 12.9 g/dL on 06/05/2019 at 1312 EDT Interpretation and review of laboratory results Abnormal [facility] Lymphocytes (Bld) [#/Vol] 2.2 10*3/uL [facility] Comment on above: This is a corrected result. Previous result was 2.1 K/mcl on 06/05/2019 at 1312 EDT Lymphocytes/100 WBC (Bld) 23.7 % [facility] Comment on above: This is a corrected result. Previous result was 22.6 % on 06/05/2019 at 1312 EDT MCH (RBC) [Entitic mass] 36.4 pg High 26 - 34 pg [facility] Comment on above: This is a corrected result. Previous result was 36.6 pg on 06/05/2019 at 1312 EDT MCHC (RBC) [Mass/Vol] 34.6 g/dL 31 - 37 g/dL [facility] Comment on above: This is a corrected result. Previous result was 35.1 g/dL on 06/05/2019 at 1312 EDT MCV (RBC) [Entitic vol] 105.0 fL High 80 - 100 fL [facility] Comment on above: This is a corrected result. Previous result was 104.3 fL on 06/05/2019 at 1312 EDT Mixed 2.7 % [facility] Comment on above: This is a corrected result. Previous result was 3.1 % on 06/05/2019 at 1312 EDT Mixed Abs 0.3 K/mcl [facility] Neutrophil Abs 6.9 [facility] Comment on above: This is a corrected result. Previous result was 7.1 K/mcl on 06/05/2019 at 1312 EDT Neutrophils/100 WBC (Bld) 73.6 % [facility] Comment on above: This is a corrected result. Previous result was 74.3 % on 06/05/2019 at 1312 EDT Platelet mean volume (Bld) [Entitic vol] 12.2 fL 9 - 15.5 fL [facility] Comment on above: This is an appended report. These results have been appended to a previously final verified report. Platelets (Bld) [#/Vol] 212 10*3/uL [facility] Comment on above: This is an appended report. These results have been appended to a previously final verified report. RBC (Bld) [#/Vol] 3.63 10*6/uL Low [facility] Comment on above: This is a corrected result. Previous result was 3.52 M/mcL on 06/05/2019 at 1312 EDT WBC (Bld) [#/Vol] 9.40 10*3/uL [facility] Comment on above: This is a corrected result. Previous result was 9.50 K/mcL on 06/05/2019 at 1312 EDT POC Troponin Ion 06-05-2019 Interpretation and review of laboratory results Normal [facility] Troponin I.cardiac [Mass/Vol] ng/mL <0.05 ng/mL [facility] XR CHEST AP/PA AND LATon XR [...] on MonJun 05, 2019 12:57:[address] [facility] Comment on above: Order Comment: Injur [...] mild chronic degenerative changes. Workstation ID: [id number] [facility] EXAMINATION: XR CHES T AP/PA AND [...] rib fracture involving the right 4th rib. [facility] Nonacute two-view ch est with mild chronic degenerative changes. Workstation ID: [id number] [facility] CBC WITH AUTO DIFFERENTIALon 05-27-2019 Basophils (Bld) [#/Vol] 0.06 10*3/uL [facility] Basophils/100 WBC (Bld) 0.6 % [facility] Eosinophils (Bld) [#/Vol] 0.01 10*3/uL [facility] Eosinophils/100 WBC (Bld) 0.1 % [facility] Erythrocyte distribution width (RBC) [Entitic vol] 12.4 % 11.6 - 14.8 % [facility] Hematocrit (Bld) [Volume fraction] 35.5 % Low 41 - 53 % [facility] Hemoglobin (Bld) [Mass/Vol] 12.7 g/dL Low 13.5 - 17.5 g/dL [facility] Immature granulocytes (Bld) [#/Vol] 0.05 10*3/uL [facility] Immature granulocytes/100 WBC (Bld) 0.50 % [facility] Comment on above: The IG parameter is the percentage of metamyelocytes, myelocytes, and promyelocytes. Interpretation and review of laboratory results Abnormal [facility] Lymphocytes (Bld) [#/Vol] 1.78 10*3/uL [facility] Lymphocytes/100 WBC (Bld) 18.9 % [facility] MCH (RBC) [Entitic mass] 37.4 pg High 26 - 34 pg [facility] MCHC (RBC) [Mass/Vol] 35.8 g/dL 31 - 37 g/dL [facility] MCV (RBC) [Entitic vol] 104.4 fL High 80 - 100 fL [facility] Monocytes (Bld) [#/Vol] 0.84 10*3/uL [facility] Monocytes/100 WBC (Bld) 8.9 % [facility] Neutrophils (Bld) [#/Vol] 6.68 10*3/uL [facility] Neutrophils/100 WBC (Bld) 71.0 % [facility] Nucleated RBC (Bld) [#/Vol] 0.00 10*3/uL [facility] Nucleated RBC/100 WBC (Bld) [Ratio] 0.0 % [facility] Platelet mean volume (Bld) [Entitic vol] 11.2 fL 9 - 15.5 fL [facility] Platelets (Bld) [#/Vol] 116 10*3/uL Low [facility] RBC (Bld) [#/Vol] 3.40 10*6/uL Low [facility] WBC (Bld) [#/Vol] 9.42 10*3/uL [facility] ealth CMPon 05-27-2019 Albumin [Mass/Vol] 3.2 g/dL 3.2 - 5.2 g/dL [facility] ALP [Catalytic activity/Vol] 42 U/L 40 - 150 U/L [facility] ALT [Catalytic activity/Vol] 28 U/L 14 - 65 U/L [facility] Anion gap [Moles/Vol] 13 mmol/L 10 - 2 0 mmol/L [facility] AST [Catalytic activity/Vol] 26 U/L 0 - 45 U/L [facility] Bilirubin [Mass/Vol] 0.4 mg/dL 0 - 1.3 mg/dL [facility] Calcium [Mass/Vol] 9.4 mg/dL 8.4 - 10. 2 mg/dL [facility] Chloride [Moles/Vol] 106 mmol/L 98 - 10 8 mmol/L [facility] Creatinine [Mass/Vol] 1.18 mg/dL 0.8 - 1.3 mg/dL [facility] GFR/1.73 sq M predicted among non-blacks MDRD (S/P/Bld) [Vol rate/Area] The eGFR should be used for monitoring renal function only and not for medication dosing. [facility] GFR/1.73 sq M.predicted CKD-EPI (S/P/Bld) [Vol rate/Area] 62 >=60 mL/min/1.73 m2 [facility] Glucose [Mass/Vol] 90 mg/dL 65 - 99 mg/dL [facility] HCO3 [Moles/Vol] 25 mmol/L 21 - 32 mmol/L [facility] Interpretation and review of laboratory results Normal [facility] Potassium [Moles/Vol] 3.9 mmol/L 3.5 - 5.1 mmol/L [facility] Protein [Mass/Vol] 6.8 g/dL 6 - 8 g/dL [facility] Sodium [Moles/Vol] 140 mmol/L 135 - 145 mmol/L [facility] Urea nitrogen [Mass/Vol] 16 mg/dL 8 - 25 mg/dL [facility] Urea nitrogen/Creatinine [Mass ratio] 13.6 mg/mg [facility] Light Blue Topon 05-27-2019 Extra Tube Hold for add-ons. [facility] Comment on above: Auto resulted. ECG 12-LEADon 04-01-2019 Atrial Rate [facility] P [place] [facility] P-R Interval [facility] Q-T Interval [facility] Q-T Interval (corrected) [facility] QRS Duration [facility] QTC Calculation (Bezet) [facility] R [place] [facility] T [place] [facility] Ventricular Rate [facility] th CT CHEST LOW DOSE LUNG TANMAY Veloz 01-21-[address] evidence for developing pulmonary malignancy. Lung-RADs 1 Findings: No lung nodules; nodule(s) with specific calcifications: Complete, central, popcorn, concentric rings and fat containing nodules. Management: Continue annual screening with LDCT in 12 months. [facility]/hb Workstation ID: [id number] [facility] EXAMINATION: CT CHES T LOW DOSE [...] organ F17.210 Cigarette Smoker COMPARISON: 01/11/2018 at [facility] in [place] and 09/17/2010 from [place]. TECHNIQUE: Dose reduction techniques were achieved by [...] radiodense material in the gallbladder suggesting gallstones. [facility] US DOPPLER CAROTIDon 019 Non-Invasive Vascula r Patient: TONIO Oseguera [facility] Rec#: [id number] (Age): 1950(68y) Study Date: 11/26/2018 Room#: Type: Sex: M Reading: Dr. Marv Krause MD, RPVI Reading: BRITTANY Referring: AQUILES BAY PAUL Carbon Grinder: ALBERT INMAN Procedure Info: [id number]... Study Quality: Carotid Duplex: adequate Diagnosis: I65.23 [...] of stenosis in the left subclavian artery. Carbon Grinder's Comments:05/07/18 Right ICA 0% ; left ICA [...] 10:09:03 by: Dr. Marv Krause MD, YASMIN [facility] Interface, Rad In Heartlab Xper Echopacs - 11/26/2018 10:19 AM EST Non-Invasive Vascular Patient: TONIO ZAMORA [facility] Rec#: [id number] (Age): 1950(68y) Study Date: 11/26/2018 Room#: Type: Sex: M Reading: Dr. Marv Krause MD, YASMIN Reading: BRITTANY Referring: AQUILES BAY PAUL Carbon Grinder: ALBERT INMAN Procedure Info: [id number]... Study Quality: Carotid Duplex: adequate Diagnosis: I65.23 [...] of stenosis in the left subclavian artery. Carbon Grinder's Comments:05/07/18 Right ICA 0% ; left ICA [...] 10:09:03 by: Dr. Marv Krause MD, RPVI [facility] Ultrasound abdominal aorta d uplex limitedon 11-26-2018 Non-Invasive Vascula r Patient: TONIO Oseguera [facility] Rec#: [id number] (Age): 1950(68y) Study Date: 11/26/2018 Room#: Type: Sex: M Reading: BRITTANY Reading: Dr. Marv Krause MD, RPVI Referring: AQUILES BAY PAUL Carbon Grinder: Soraya Floyd, RVT, RDMS Procedure Info: [id number] Study Quality: Aneurysm Duplex: adequate Diagnosis: R09.89 [...] 11/26/2018 10:10:49 by: Dr. Marv Krause MD, [facility], Rad In Heartlab Xper Echopacs - 11/26/2018 10:19 AM EST Non-Invasive Vascular Patient: TONIO Oseguera [facility] Rec#: [id number] (Age): 1950(68y) Study Date: 11/26/2018 Room#: Type: Sex: M Reading: BRITTANY Reading: Dr. Marv Krause MD, RPVI Referring: AQUILES BAY PAUL Carbon Grinder: Soraya Floyd, RVForrest, RDMS Procedure Info: [id number] Study Quality: Aneurysm Duplex: adequate Diagnosis: R09.89 [...] 10:10:49 by: Dr. Marv Krause MD, VI [facility] Dobutamine stress echocardio gramon 11-13-2018 Target HR bpm [facility] Stress Echocardiogra m Patient: TONIO Oseguera [facility] Rec#: [id number] (Age): 1950(68y) Height: 170(cm)/66(in) Study Date: 11/13/2018 Weight: 66.7(kg)/147(lb Room#: BSA: 1.77 Type: Loc: Sex: M Reading: Silvia Joshua M.D. Ordering ProvidDr. [place] MD Carbon Grinder: Faith Richey RN RDCS Supervising - Clarita [...] 11/13/2018 13:09:45 by: Silvia Joshua M.D. [facility], Rad In Heartlab Xper Echopacs - 11/13/2018 1:17 PM EST Stress Echocardiogram Patient: TONIO Oseguera [facility] Rec#: [id number] (Age): 1950(68y) Height: 170(cm)/66(in) Study Date: 11/13/2018 Weight: 66.7(kg)/147(lb Room#: BSA: 1.77 Type: Loc: Sex: M Reading: Silvia Joshua M.D. Ordering ProvidDr. [place] MD Carbon Grinder: Faith Richey RN RDCS Supervising - Clartia Galvez MD History: COPD. CVA, history. Summary: [...] at 11/13/2018 13:09:45 by: Silvia Joshua M.D. [facility] FASTINGon 11-12-2018 A:G RATIO 1.3 RATIO Normal 1.3-2.2 [facility] Comment on above: Performed By: #### F X, CMPF, LIP2 #### [place] [address] Albumin mass conc 3.5 G/dl Normal 3.5-5.0 [facility] Comment on above: Performed By: #### F X, CMPF, LIP2 #### Testing performed at [address] [address] ALP enzyme act/vol 49 U/L Normal 38-126 [facility] Comment on above: Performed By: #### F X, CMPF, LIP2 #### Testing performed at [address] [address] ALT enzyme act/vol 20 U/L Normal 17-63 [facility] Comment on above: Performed By: #### F X, CMPF, LIP2 #### Testing performed at [address] [address] AST enzyme act/vol 25 U/L Normal 15-41 [facility] Comment on above: Performed By: #### F X, CMPF, LIP2 #### Testing performed at [address] [address] Bilirubin mass conc 0.6 mg/dL Normal 0.2-1.2 [facility] Comment on above: Performed By: #### F X, CMPF, LIP2 #### Testing performed at [address] [address] Creatinine mass conc 1.3 mg/dL High 0.66-1.25 [facility] Comment on above: Performed By: #### F X, CMPF, LIP2 #### Testing performed at [address] [address] EST. GFR, >60 Normal [facility] Comment on above: Performed By: #### F X, CMPF, LIP2 #### Testing performed at [address] [address] EST. GFR,Non 58 ml/min/1.73sq.m Normal [facility] Comment on above: Performed By: #### F X, CMPF, LIP2 #### Testing performed at [address] [address] GFR/1.73 sq M predicted among non-blacks MDRD vol rate/area (S/P/Bld) Average GFR for 60-69 years old = 85. Normal [facility] Comment on above: Result Comment: Flap Curer ulises Kidney disease, GFR = <60. Kidney failure, GFR = <15. The GFR estimate is not adjusted for extreme body surface area or acute process, nor has it been validated for women or ethnic groups other than and . Performed By: #### F X, CMPF, LIP2 #### Testing performed at [address] [address] Protein mass conc 6.3 g/dL Normal 6.3-8.2 [facility] Comment on above: Performed By: #### F X, CMPF, LIP2 #### Testing performed at [address] [address] Urea nitrogen mass conc 28 mg/dL High 7-20 A [facility] Comment on above: Performed By: #### F X, CMPF, LIP2 #### Testing performed at [address] [address] Calcium mass conc 9.0 mg/dL Normal 8.4-10.2 [facility] Comment on above: Performed By: #### F X, CMPF, LIP2 #### Testing performed at [address] [address] Chloride molar conc 101 mmol/L Normal 98-107 [facility] Comment on above: Performed By: #### F X, CMPF, LIP2 #### Testing performed at [address] [address] CO2 molar conc 27 mmol/L Normal 22-30 [facility] Comment on above: Performed By: #### F X, CMPF, LIP2 #### Testing performed at [address] [address] Glucose mass conc 111 mg/dL High 70-100 [facility] Comment on above: Result Comment: NORMAL <100 mg/dL PREDIABETES 101-126 mg/dL DIABETES 126 mg/dL or higher Performed By: #### F X, CMPF, LIP2 #### Testing performed at [address] [address] Potassium molar conc 4.0 mmol/L Normal 3.5-5.1 [facility] Comment on above: Performed By: #### F X, CMPF, LIP2 #### Testing performed at [address] [address] Sodium molar conc 138 mmol/L Normal 136-145 [facility] Comment on above: Performed By: #### F X, CMPF, LIP2 #### Testing performed at [address] [address] FAX REQUESTon 11-12-2018 FAX TO FAX TO [facility] Comment on above: Performed By: #### F X, PSA #### Testing performed at [address] [address] FAX TO FAX TO [facility] Comment on above: Performed By: #### F X, HA1CT #### Testing performed at [address] [address] FAX TO FAX TO [facility] Comment on above: Performed By: #### F X, CMPF, LIP2 #### Testing performed at [address] [address] HEMOGLOBIN A1Con 11-12-2018 Hemoglobin A1c/Hemoglobin.total mass fraction (Bld) 105 mg/dL Normal [facility] Comment on above: Performed By: #### F X, HA1CT #### Testing performed at [address] [address] Hemoglobin A1c/Hemoglobin.total mass fraction (Bld) 5.3 % Normal <6 [facility] Comment on above: Result Comment: NORMAL <5.7% PREDIABETES 5.7-6.4% DIABETES 6.5% OR HIGHER Performed By: #### F X, HA1CT #### Testing performed at [address] [address] LIPID PROFILEon 11-12-2018 Cholesterol in HDL mass conc 51 mg/dL Normal 40-60 [facility] Comment on above: Performed By: #### F X, CMPF, LIP2 #### Testing performed at [address] [address] Cholesterol in LDL mass conc 81 mg/dL Normal 0-100 [facility] Comment on above: Performed By: #### F X, CMPF, LIP2 #### [place] [address] Cholesterol in VLDL mass conc 38 mg/dL High 5.0-25.0 [facility] Comment on above: Performed By: #### F X, CMPF, LIP2 #### Testing performed at [address] [address] Cholesterol mass conc 170 mg/dL Normal 100-199 [facility] Comment on above: Performed By: #### F X, CMPF, LIP2 #### Testing performed at [address] [address] Cholesterol.total/Caren sterol in HDL mass ratio 3.33 {ratio} Normal [facility] Comment on above: Result Comment: RISK TOTAL/HDL RATIO MEN WOMEN 1/2 AVERAGE 3.43 3.27 AVERAGE 4.97 4.44 2X AVERAGE 9.55 7.05 3X AVERAGE 23.99 11.04 Performed By: #### F X, CMPF, LIP2 #### Testing performed at [address] [address] Triglyceride mass conc 192 mg/dL High <150 [facility] Comment on above: Performed By: #### F X, CMPF, LIP2 #### Testing performed at [place] [id number] [facility] [place] [address] PSA,TOTALon 11-12-2018 PSA,TOTAL 0.990 NG/ML Normal 0-4 [facility] Comment on above: Result Comment: OBTAIN BASELINE BETWEEN AGES OF 45-75 LESS THAN 1.0 ng/mL REPEAT TESTING AT 2-4 YEARS 1.0-3.0 ng/mL REPEAT TESTING AT 1-2 YEARS GREATER THAN 3.0 ng/mL REPEAT PSA,DANG, AND WORKUP FOR BENIGN DISEASE AGE GREATER THAN 75, PSA LESS THAN 3 ng/mL REPEAT TESTING IN 1-4 YEARS Performed By: #### F X, PSA #### Testing performed at [address] [place] [address] CBC AND DIFFERENTIALon 09-19 Basophils Auto #/vol (Bld) 0.1 10*3/uL Invalid Interpretation Code [facility] Basophils/100 WBC Auto (Bld) 2.0 % Invalid Interpretation Code [facility] Eosinophils Auto #/vol (Bld) 0.2 10*3/uL Invalid Interpretation Code [facility] Eosinophils/100 WBC Auto (Bld) 3.8 % Invalid Interpretation Code [facility] Erythrocyte distribution width Auto Ratio (RBC) 13.4 % Invalid Interpretation Code 10 - 14.3 % [facility] Hematocrit Auto Volume Fraction (Bld) 43.6 % Invalid Interpretation Code 37.9 - 49.2 % [facility] Hemoglobin mass conc (Bld) 14.8 g/dL Invalid Interpretation Code 12.9 - 16.9 g/dL [facility] Interpretation and review of laboratory results Abnormal Invalid Interpretation Code [facility] Lymphocytes Auto #/vol (Bld) 2.4 10*3/uL Invalid Interpretation Code [facility] Lymphocytes/100 WBC Auto (Bld) 38.9 % Invalid Interpretation Code [facility] MCH Auto Entitic mass (RBC) 37.6 pg High 27.7 - 34.6 pg [facility] MCHC Auto mass conc (RBC) 34.0 g/dL Invalid Interpretation Code 32.9 - 35.5 g/dL [facility] MCV Auto Entitic volume (RBC) 110.7 fL High [facility] Monocytes Auto #/vol (Bld) 0.5 10*3/uL Invalid Interpretation Code [facility] Monocytes/100 WBC Auto (Bld) 8.1 % Invalid Interpretation Code [facility] Neutrophils Auto #/vol (Bld) 2.9 10*3/uL Invalid Interpretation Code [facility] Platelet mean volume Auto Entitic volume (Bld) 10.2 fL Invalid Interpretation Code [facility] Platelets Auto #/vol (Bld) 169 10*3/uL Invalid Interpretation Code [facility] RBC Auto #/vol (Bld) 3.94 10*6/uL Low [place] [facility] Segmented Neut 47.2 % Invalid Interpretation Code [facility] WBC Auto #/vol (Bld) 6.1 10*3/uL Invalid Interpretation Code [facility] CBC with Diffon 09-19-2018 Basophils #/vol (Bld) 0.1 K/mcL Normal 0-0.2 [facility] Comment on above: Performed By: #### F ERR, LYTES, CALCM, BUNCR, IRON, TFERR, ALB, PHOS, PTHI #### Unless otherwise noted, all testing performed by [place] [address] CLIA: [id number] [place] Tutor: Eric Moser M.D. Basophils/100 WBC (Bld) 2.0 % Normal [facility] Comment on above: Performed By: #### F ERR, LYTES, CALCM, BUNCR, IRON, TFERR, ALB, PHOS, PTHI #### Unless otherwise noted, all testing performed by [place] [address] CLIA: [id number] [place] Tutor: Eric Moser M.D. Eosinophils #/vol (Bld) 0.2 K/mcL Normal 0-0.5 [facility] Comment on above: Performed By: #### F ERR, LYTES, CALCM, BUNCR, IRON, TFERR, ALB, PHOS, PTHI #### Unless otherwise noted, all testing performed by [place] [address] CLIA: [id number] German Tutor: Eric Moser M.D. Eosinophils/100 WBC (Bld) 3.8 % Normal [facility] Comment on above: Performed By: #### F ERR, LYTES, CALCM, BUNCR, IRON, TFERR, ALB, PHOS, PTHI #### Unless otherwise noted, all testing performed by [place] [address] CLIA: [id number] German Tutor: Eric Moser M.D. Erythrocyte distribution width Ratio (RBC) 13.4 % Normal 10-14.3 [facility] Comment on above: Performed By: #### F ERR, LYTES, CALCM, BUNCR, IRON, TFERR, ALB, PHOS, PTHI #### Unless otherwise noted, all testing performed by [place] [address] CLIA: [id number] German Tutor: Eric Moser M.D. Hematocrit Volume Fraction (Bld) 43.6 % Normal 37.9-49.2 [facility] Comment on above: Performed By: #### F ERR, LYTES, CALCM, BUNCR, IRON, TFERR, ALB, PHOS, PTHI #### Unless otherwise noted, all testing performed by [place] [address] CLIA: [id number] German Tutor: Eric Moser M.D. Hemoglobin mass conc (Bld) 14.8 g/dL Normal 12.9-16.9 [facility] Comment on above: Performed By: #### F ERR, LYTES, CALCM, BUNCR, IRON, TFERR, ALB, PHOS, PTHI #### Unless otherwise noted, all testing performed by [place] [address] CLIA: [id number] German Tutor: Eric Moser M.D. Lymphocytes #/vol (Bld) 2.4 K/mcL Normal 0.9-3.6 [facility] Comment on above: Performed By: #### F ERR, LYTES, CALCM, BUNCR, IRON, TFERR, ALB, PHOS, PTHI #### Unless otherwise noted, all testing performed by [place] [address] CLIA: [id number] German Tutor: Eric Moser M.D. Lymphocytes/100 WBC (Bld) 38.9 % Normal [facility] Comment on above: Performed By: #### F ERR, LYTES, CALCM, BUNCR, IRON, TFERR, ALB, PHOS, PTHI #### Unless otherwise noted, all testing performed by [place] [address] CLIA: [id number] German Tutor: Eric Moser M.D. MCH Entitic mass (RBC) 37.6 pg High 27.7-34.6 [facility] Comment on above: Performed By: #### F ERR, LYTES, CALCM, BUNCR, IRON, TFERR, ALB, PHOS, PTHI #### Unless otherwise noted, all testing performed by [place] [address] CLIA: [id number] German Tutor: Eric Moser M.D. MCHC mass conc (RBC) 34.0 g/dL Normal 32.9-35.5 [facility] Comment on above: Performed By: #### F ERR, LYTES, CALCM, BUNCR, IRON, TFERR, ALB, PHOS, PTHI #### Unless otherwise noted, all testing performed by [place] [address] CLIA: [id number] German Tutor: Eric Moser M.D. MCV Entitic volume (RBC) 110.7 fL High 82.8-99.3 [facility] Comment on above: Performed By: #### F ERR, LYTES, CALCM, BUNCR, IRON, TFERR, ALB, PHOS, PTHI #### Unless otherwise noted, all testing performed by [place] [address] CLIA: [id number] German Tutor: Eric Moser M.D. Monocytes #/vol (Bld) 0.5 K/mcL Normal 0.2-0.6 [facility] Comment on above: Performed By: #### F ERR, LYTES, CALCM, BUNCR, IRON, TFERR, ALB, PHOS, PTHI #### Unless otherwise noted, all testing performed by [place] [address] CLIA: [id number] German Tutor: Eric Moser M.D. Monocytes/100 WBC (Bld) 8.1 % Normal [facility] Comment on above: Performed By: #### F ERR, LYTES, CALCM, BUNCR, IRON, TFERR, ALB, PHOS, PTHI #### Unless otherwise noted, all testing performed by [place] [address] CLIA: [id number] German Tutor: Eric Moser M.D. Neutrophils #/vol (Bld) 2.9 K/mcL Normal 1.4-6.8 [facility] Comment on above: Performed By: #### F ERR, LYTES, CALCM, BUNCR, IRON, TFERR, ALB, PHOS, PTHI #### Unless otherwise noted, all testing performed by [place] [address] CLIA: [id number] German Tutor: Eric Moser M.D. Platelet mean volume Entitic volume (Bld) 10.2 fL Normal 6.6-10.8 [facility] Comment on above: Performed By: #### F ERR, LYTES, CALCM, BUNCR, IRON, TFERR, ALB, PHOS, PTHI #### Unless otherwise noted, all testing performed by [place] [phone] CLIA: [id number] German Tutor: Eric Moser M.D. Platelets #/vol (Bld) 169 K/mcL Normal 139-354 [facility] Comment on above: Performed By: #### F ERR, LYTES, CALCM, BUNCR, IRON, TFERR, ALB, PHOS, PTHI #### Unless otherwise noted, all testing performed by [place] [address] CLIA: [id number] German Tutor: Eric Moser M.D. RBC #/vol (Bld) 3.94 M/mcL Low 4.0-5.5 [facility] Comment on above: Performed By: #### F ERR, LYTES, CALCM, BUNCR, IRON, TFERR, ALB, PHOS, PTHI #### Unless otherwise noted, all testing performed by [place] [address] CLIA: [id number] German Tutor: Eric Moser M.D. Segmented Neut % 47.2 % Normal [facility] Comment on above: Performed By: #### F ERR, LYTES, CALCM, BUNCR, IRON, TFERR, ALB, PHOS, PTHI #### Unless otherwise noted, all testing performed by [address] [place] [address] CLIA: [id number] German Tutor: Eric Moser M.D. WBC #/vol (Bld) 6.1 K/mcL Normal 3.6-10.4 [facility] Comment on above: Performed By: #### F ERR, LYTES, CALCM, BUNCR, IRON, TFERR, ALB, PHOS, PTHI #### Unless otherwise noted, all testing performed by [place] [address] CLIA: [id number] German Tutor: Eric Moser M.D. Comprehensive Metabolic [facility] 09-19-2018 Albumin mass conc 3.1 g/dL Low 3.2 - 5.2 g/dL [facility] ALP enzyme act/vol 59 U/L Invalid Interpretation Code 40 - 150 U/L [facility] ALT enzyme act/vol 33 U/L Invalid Interpretation Code 14 - 65 U/L [facility] Comment on above: This test result alfredo ht be falsely depressed or falsely elevated on samples drawn from patients taking Sulfasalazine and Sulfapyridine. Venipuncture should occur prior to taking either of these drugs. AST enzyme act/vol 29 U/L Invalid Interpretation Code 0 - 45 U/L [facility] Comment on above: This test result alfredo ht be falsely depressed or falsely elevated on samples drawn from patients taking Sulfasalazine and Sulfapyridine. Venipuncture should occur prior to taking either of these drugs. Bilirubin mass conc 0.3 mg/dL Invalid Interpretation Code 0.3 - 1.2 mg/dL [facility] Calcium mass conc 9.2 mg/dL Invalid Interpretation Code 8.4 - 10.2 mg/dL [facility] Chloride molar conc 106 mmol/L Invalid Interpretation Code 98 - 108 mmol/L [facility] CO2 molar conc 26 mmol/L Invalid Interpretation Code 21 - 32 mmol/L [facility] Creatinine mass conc 1.14 mg/dL Invalid Interpretation Code 0.8 - 1.3 mg/dL [facility] GFR/1.73 sq M predicted among blacks MDRD vol rate/area (S/P/Bld) mL/min/{1.73_m2} Invalid Interpretation Code ml/min/1.73s q.m [facility] Comment on above: GFR Calc GFR/1.73 sq M predicted among non-blacks MDRD vol rate/area (S/P/Bld) mL/min/{1.73_m2} Invalid Interpretation Code ml/min/1.73s q.m [facility] Comment on above: Non- GFR Calc eGFR [...] 105 mg/dL High 70 - 99 mg/dL [facility] Comment on above: This test result alfredo ht be falsely depressed or falsely elevated on samples drawn from patients taking Sulfasalazine and Sulfapyridine. Venipuncture should occur prior to taking either of these drugs. Interpretation and review of laboratory results Abnormal Invalid Interpretation Code [facility] Potassium molar conc 3.9 mmol/L Invalid Interpretation Code 3.5 - 5.1 mmol/L [facility] Protein mass conc 6.8 g/dL Invalid Interpretation Code 6 - 8 g/dL [facility] Sodium molar conc 139 mmol/L Invalid Interpretation Code 135 - 145 mmol/L [facility] Urea nitrogen mass conc 19 mg/dL Invalid Interpretation Code 8 - 25 mg/dL [facility] Albumin mass conc 3.1 g/dL Low 3.2-5.2 [facility] Comment on above: Performed By: #### F ERR, LYTES, CALCM, BUNCR, IRON, TFERR, ALB, PHOS, PTHI #### Unless otherwise noted, all testing performed by [place] [address] CLIA: [id number] German Tutor: Eric Moser M.D. ALP enzyme act/vol 59 U/L Normal 40-150 [facility] Comment on above: Performed By: #### F ERR, LYTES, CALCM, BUNCR, IRON, TFERR, ALB, PHOS, PTHI #### Unless otherwise noted, all testing performed by [place] [phone] CLIA: [id number] German Tutor: Eric Moser M.D. ALT enzyme act/vol 33 U/L Normal 14-65 [facility] Comment on above: Result Comment: This test result might be falsely depressed or falsely elevated on samples drawn from patients taking Sulfasalazine and Sulfapyridine. Venipuncture should occur prior to taking either of these drugs. Performed By: #### F ERR, LYTES, CALCM, BUNCR, IRON, TFERR, ALB, PHOS, PTHI #### Unless otherwise noted, all testing performed by [place] [phone] CLIA: [id number] German Tutor: Eric Moser M.D. AST enzyme act/vol 29 U/L Normal 0-45 [facility] Comment on above: Result Comment: This test result might be falsely depressed or falsely elevated on samples drawn from patients taking Sulfasalazine and Sulfapyridine. Venipuncture should occur prior to taking either of these drugs. Performed By: #### F ERR, LYTES, CALCM, BUNCR, IRON, TFERR, ALB, PHOS, PTHI #### Unless otherwise noted, all testing performed by [place] [address] CLIA: [id number] German Tutor: Eric Moser M.D. Bilirubin mass conc 0.3 mg/dL Normal 0.3-1.2 [facility] Comment on above: Performed By: #### F ERR, LYTES, CALCM, BUNCR, IRON, TFERR, ALB, PHOS, PTHI #### Unless otherwise noted, all testing performed by [place] [address] CLIA: [id number] German Tutor: Eric Moser M.D. Calcium mass conc 9.2 mg/dL Normal 8.4-10.2 [facility] Comment on above: Performed By: #### F ERR, LYTES, CALCM, BUNCR, IRON, TFERR, ALB, PHOS, PTHI #### Unless otherwise noted, all testing performed by [place] [address] CLIA: [id number] German Tutor: Eric Moser M.D. Chloride molar conc 106 mmol/L Normal 98-108 [facility] Comment on above: Performed By: #### F ERR, LYTES, CALCM, BUNCR, IRON, TFERR, ALB, PHOS, PTHI #### Unless otherwise noted, all testing performed by [place] [address] CLIA: [id number] German Tutor: Eric Moser M.D. CO2 molar conc 26 mmol/L Normal 21-32 [facility] Comment on above: Performed By: #### F ERR, LYTES, CALCM, BUNCR, IRON, TFERR, ALB, PHOS, PTHI #### Unless otherwise noted, all testing performed by [place] [address] CLIA: [id number] German Tutor: Eric Moser M.D. Creatinine mass conc 1.14 mg/dL Normal 0.80-1.30 [facility] Comment on above: Performed By: #### F ERR, LYTES, CALCM, BUNCR, IRON, TFERR, ALB, PHOS, PTHI #### Unless otherwise noted, all testing performed by [place] [address] CLIA: [id number] German Tutor: Eric Moser M.D. GFR/1.73 sq M predicted among blacks MDRD vol rate/area (S/P/Bld) mL/min/{1.73_m2} Normal [facility] Comment on above: Result Comment: Afri can Burkinan GFR Calc Performed By: #### F ERR, LYTES, CALCM, BUNCR, IRON, TFERR, ALB, PHOS, PTHI #### Unless otherwise noted, all testing performed by [place] [address] CLIA: [id number] German Tutor: Eric Moser M.D. GFR/1.73 sq M predicted among non-blacks MDRD vol rate/area (S/P/Bld) mL/min/{1.73_m2} Normal [facility] Comment on above: Result Comment: Non- GFR [...] Unless otherwise noted, all testing performed by [place] [address] CLIA: [id number] German Tutor: Eric Moser M.D. Glucose mass conc 105 mg/dL High 70-99 [facility] Comment on above: Result Comment: This test result might be falsely depressed or falsely elevated on samples drawn from patients taking Sulfasalazine and Sulfapyridine. Venipuncture should occur prior to taking either of these drugs. Performed By: #### F ERR, LYTES, CALCM, BUNCR, IRON, TFERR, ALB, PHOS, PTHI #### Unless otherwise noted, all testing performed by [place] [address] CLIA: [id number] German Tutor: Eric Moser M.D. Potassium molar conc 3.9 mmol/L Normal 3.5-5.1 [facility] Comment on above: Performed By: #### F ERR, LYTES, CALCM, BUNCR, IRON, TFERR, ALB, PHOS, PTHI #### Unless otherwise noted, all testing performed by [place] [address] CLIA: [id number] German Tutor: Eric Moser M.D. Protein mass conc 6.8 g/dL Normal 6.0-8.0 [facility] Comment on above: Performed By: #### F ERR, LYTES, CALCM, BUNCR, IRON, TFERR, ALB, PHOS, PTHI #### Unless otherwise noted, all testing performed by [place] [address] CLIA: [id number] German Tutor: Eric Moser M.D. Sodium molar conc 139 mmol/L Normal 135-145 [facility] Comment on above: Performed By: #### F ERR, LYTES, CALCM, BUNCR, IRON, TFERR, ALB, PHOS, PTHI #### Unless otherwise noted, all testing performed by [place] [address] CLIA: [id number] German Tutor: Eric Moser M.D. Urea nitrogen mass conc 19 mg/dL Normal 8-25 [facility] Comment on above: Performed By: #### F ERR, LYTES, CALCM, BUNCR, IRON, TFERR, ALB, PHOS, PTHI #### Unless otherwise noted, all testing performed by [place] [address] CLIA: [id number] German Tutor: Eric Moser M.D. Ferritinon 09-19-2018 Ferritin [Mass/volume] in Serum or Plasma 76 ng/mL Invalid Interpretation Code 30 - 400 ng/mL [facility] Comment on above: Samples from patient s routinely receiving high dose biotin therapy (100-300 mg/day) may show falsely decreased results. Please correlate clinically. Ferritin mass conc 76 ng/mL Normal 30-400 [facility] Comment on above: Result Comment: Samp les from patients routinely receiving high dose biotin therapy (100-300 mg/day) may show falsely decreased results. Please correlate clinically. Performed By: #### F ERR, LYTES, CALCM, BUNCR, IRON, TFERR, ALB, PHOS, PTHI #### Unless otherwise noted, all testing performed by [place] [address] CLIA: [id number] German Tutor: [place] Moser M.D. Reticulocyteon 09-19-2018 Reticulocytes 1.42 % Invalid Interpretation Code 0.5 - 1.7 % [facility] Reticulocyte 1.42 % Normal 0.5-1.7 [facility] Comment on above: Performed By: #### F ERR, LYTES, CALCM, BUNCR, IRON, TFERR, ALB, PHOS, PTHI #### Unless otherwise noted, all testing performed by [place] [address] CLIA: [id number] German Tutor: Eric Shanti, M.D. SPINE LUMBAR 2 OR 3 VIEWSon 09-19-2018 SPINE LUMBAR 2 OR 3 VIEWS Final Report Accession No: [id number] Performed: Sep 19 2018 11:51AM Examination: [...] DONALD M.D. Trans: istumb : cc: Normal [facility] Albuminon 07-02-2018 Albumin mass conc 3.4 g/dL Normal 3.2-5.2 [facility] Comment on above: Performed By: #### F ERR, LYTES, CALCM, BUNCR, IRON, TFERR, ALB, PHOS, PTHI #### Unless otherwise noted, all testing performed by [place] [address] CLIA: [id number] German Tutor: [place] Moser M.D. Albumin mass conc 3.4 g/dL Invalid Interpretation Code 3.2 - 5.2 g/dL [facility] BUN and Creatinineon 018 Creatinine mass conc 1.14 mg/dL Normal 0.80-1.30 [facility] Comment on above: Performed By: #### F ERR, LYTES, CALCM, BUNCR, IRON, TFERR, ALB, PHOS, PTHI #### Unless otherwise noted, all testing performed by [place] [phone] CLIA: [id number] German Tutor: [place] Moser M.D. GFR/1.73 sq M predicted among blacks MDRD vol rate/area (S/P/Bld) mL/min/{1.73_m2} Normal [facility] Comment on above: Result Comment: Afri can Burkin[place] GFR Calc Performed By: #### F ERR, LYTES, CALCM, BUNCR, IRON, TFERR, ALB, PHOS, PTHI #### Unless otherwise noted, all testing performed by [place] [address] CLIA: [id number] German Tutor: Eric Moser M.D. GFR/1.73 sq M predicted among non-blacks MDRD vol rate/area (S/P/Bld) mL/min/{1.73_m2} Normal [facility] Comment on above: Result Comment: Non- GFR [...] Unless otherwise noted, all testing performed by [place] [address] CLIA: [id number] German Tutor: [place] Moser M.D. Urea nitrogen mass conc 21 mg/dL Normal 8-25 [facility] Comment on above: Performed By: #### F ERR, LYTES, CALCM, BUNCR, IRON, TFERR, ALB, PHOS, PTHI #### Unless otherwise noted, all testing performed by [place] [address] CLIA: [id number] German Tutor: Eric Moser M.D. Calciumon 07-02-2018 Calcium mass conc 8.7 mg/dL Normal 8.4-10.2 [facility] Comment on above: Performed By: #### F ERR, LYTES, CALCM, BUNCR, IRON, TFERR, ALB, PHOS, PTHI #### Unless otherwise noted, all testing performed by [place] [address] CLIA: [id number] German Tutor: Eric Moser M.D. Calcium Levelon 07-02-2018 Calcium mass conc 8.7 mg/dL Invalid Interpretation Code 8.4 - 10.2 mg/dL [facility] Electrolyte Panelon 07-02-20 18 Chloride molar conc 108 mmol/L Invalid Interpretation Code 98 - 108 mmol/L [facility] CO2 molar conc 16 mmol/L Low 21 - 32 mmol/L [facility] Interpretation and review of laboratory results Abnormal Invalid Interpretation Code [facility] Potassium molar conc 4.2 mmol/L Invalid Interpretation Code 3.5 - 5.1 mmol/L [facility] Sodium molar conc 141 mmol/L Invalid Interpretation Code 135 - 145 mmol/L [facility] Electrolyteson 07-02-2018 Chloride molar conc 108 mmol/L Normal 98-108 [facility] Comment on above: Performed By: #### F ERR, LYTES, CALCM, BUNCR, IRON, TFERR, ALB, PHOS, PTHI #### Unless otherwise noted, all testing performed by [place] [address] CLIA: [id number] German Tutor: Eric Moser M.D. CO2 molar conc 16 mmol/L Low 21-32 [facility] Comment on above: Performed By: #### F ERR, LYTES, CALCM, BUNCR, IRON, TFERR, ALB, PHOS, PTHI #### Unless otherwise noted, all testing performed by [place] [address] CLIA: [id number] German Tutor: Eric Moser M.D. Potassium molar conc 4.2 mmol/L Normal 3.5-5.1 [facility] Comment on above: Performed By: #### F ERR, LYTES, CALCM, BUNCR, IRON, TFERR, ALB, PHOS, PTHI #### Unless otherwise noted, all testing performed by [place] [address] CLIA: [id number] German Tutor: [place] Moser M.D. Sodium molar conc 141 mmol/L Normal 135-145 [facility] Comment on above: Performed By: #### F ERR, LYTES, CALCM, BUNCR, IRON, TFERR, ALB, PHOS, PTHI #### Unless otherwise noted, all testing performed by [place] [address] CLIA: [id number] German Tutor: [place] Moser M.D. Hemoglobin and Hematocriton 07-02-2018 Hematocrit Auto Volume Fraction (Bld) 41.0 % Invalid Interpretation Code 37.9 - 49.2 % [facility] Hemoglobin mass conc (Bld) 13.9 g/dL Invalid Interpretation Code 12.9 - 16.9 g/dL [facility] Hgb and Hcton 07-02-2018 Hematocrit Volume Fraction (Bld) 41.0 % Normal 37.9-49.2 [facility] Comment on above: Performed By: #### F ERR, LYTES, CALCM, BUNCR, IRON, TFERR, ALB, PHOS, PTHI #### Unless otherwise noted, all testing performed by [place] [address] CLIA: [id number] German Tutor: [place] Moser M.D. Hemoglobin mass conc (Bld) 13.9 g/dL Normal 12.9-16.9 [facility] Comment on above: Performed By: #### F ERR, LYTES, CALCM, BUNCR, IRON, TFERR, ALB, PHOS, PTHI #### Unless otherwise noted, all testing performed by [place] [address] CLIA: [id number] German Tutor: [place] Moser M.D. Magnesiumon 07-02-2018 Magnesium mass conc 1.7 mg/dL Normal 1.6-2.4 [facility] Comment on above: Performed By: #### F ERR, LYTES, CALCM, BUNCR, IRON, TFERR, ALB, PHOS, PTHI #### Unless otherwise noted, all testing performed by [place] [address] CLIA: [id number] German Tutor: Eric Moser M.D. Magnesium Levelon 07-02-2018 Magnesium mass conc 1.7 mg/dL Invalid Interpretation Code 1.6 - 2.4 mg/dL [facility] Parathyroid Hormoneon 2017 Parathyroid Hormone 15.9 pg/mL Low 18.4-80.1 [facility] Comment on above: Result Comment: Samp les from patients routinely receiving high dose biotin therapy may show falsely depressed results. Additional information may be required for diagnosis. Performed By: #### F ERR, LYTES, CALCM, BUNCR, IRON, TFERR, ALB, PHOS, PTHI #### Unless otherwise noted, all testing performed by [place] [address] CLIA: [id number] German Tutor: Eric Moser M.D. Interpretation and review of laboratory results Abnormal Invalid Interpretation Code [facility] Parathyroid Hormone 15.9 pg/mL Low 18.4 - 8 0.1 pg/mL [facility] Comment on above: Samples from patient s routinely receiving high dose biotin therapy may show falsely depressed results. Additional information may be required for diagnosis. Phosphoruson 07-02-2018 Phosphate mass conc 3.7 mg/dL Normal 2.3-3.7 [facility] Comment on above: Performed By: #### F ERR, LYTES, CALCM, BUNCR, IRON, TFERR, ALB, PHOS, PTHI #### Unless otherwise noted, all testing performed by [place] [address] CLIA: [id number] German Tutor: Eric Moser M.D. Phosphate mass conc 3.7 mg/dL Invalid Interpretation Code 2.3 - 3.7 mg/dL [facility] Protein Panel, Urineon 07-02 Creatinine, Urine Random 161.00 mg/dL Normal [facility] Comment on above: Result Comment: No e stablished reference range. Performed By: #### F ERR, LYTES, CALCM, BUNCR, IRON, TFERR, ALB, PHOS, PTHI #### Unless otherwise noted, all testing performed by [place] [address] CLIA: [id number] German Tutor: Eric Moser M.D. Protein Creatinine Ratio 3.66 High 0.0-0.2 [facility] Comment on above: Performed By: #### F ERR, LYTES, CALCM, BUNCR, IRON, TFERR, ALB, PHOS, PTHI #### Unless otherwise noted, all testing performed by [place] [address] CLIA: [id number] German Tutor: Eric Moesr M.D. Protein mass conc (U) 589.2 mg/dL Normal [facility] Comment on above: Performed By: #### F ERR, LYTES, CALCM, BUNCR, IRON, TFERR, ALB, PHOS, PTHI #### Unless otherwise noted, all testing performed by [place] [address] CLIA: [id number] German Tutor: Eric Moser M.D. Creatinine, Urine Random 161.00 mg/dL Invalid Interpretation Code [facility] Comment on above: No established refer ence range. Interpretation and review of laboratory results Abnormal Invalid Interpretation Code [facility] Protein, Urine Random 589.2 mg/dL Invalid Interpretation Code [facility] Protein/Creatinine Ratio, Urine 3.66 High [facility] CBC and Differentialon 05-10 Basophils Auto #/vol (Bld) 0.1 K/mcL Invalid Interpretation Code 0 - 0.2 [facility] Basophils/100 WBC Auto (Bld) 1.5 % Invalid Interpretation Code [facility] Eosinophils 0.2 K/mcL Invalid Interpretation Code 0 - 0.5 [facility] Eosinophils/100 leukocytes 3.1 % Invalid Interpretation Code [facility] Erythrocyte distribution width Auto Ratio (RBC) 14.4 % High 10 - 14.3 % [facility] Erythrocytes (RBC) 3.87 M/mcL Low 4.0 - 5.5 [facility] Hematocrit (HCT) 39.9 % Invalid Interpretation Code 37.9 - 49.2 % [facility] Hemoglobin mass conc (Bld) 13.6 g/dL Normal 12.9-16.9 [facility] Comment on above: Performed By: #### F ERR, LYTES, CALCM, BUNCR, IRON, TFERR, ALB, PHOS, PTHI #### Unless otherwise noted, all testing performed by [place] [address] CLIA: [id number] German Tutor: Eric Moser M.D. Interpretation and review of laboratory results Abnormal Invalid Interpretation Code [facility] Lymphocytes 2.3 K/mcL Invalid Interpretation Code 0.9 - 3.6 [facility] [facility] [place] Lymphocytes/100 leukocytes 36.0 % Invalid Interpretation Code [facility] MCH 35.1 pg High 27.7 - 34.6 pg [facility] MCHC mass conc (RBC) 34.1 g/dL Invalid Interpretation Code 32.9 - 35.5 g/dL [facility] MCV 103 fL High 82.8 - 99.3 [facility] Monocytes 0.6 K/mcL Invalid Interpretation Code 0.2 - 0.6 [facility] Monocytes/100 leukocytes 10.3 % Invalid Interpretation Code [facility] Neutrophils 3.1 K/mcL Invalid Interpretation Code 1.4 - 6.8 [facility] Platelet mean volume (PMV) 9.8 fL Invalid Interpretation Code 6.6 - 10.8 [facility] Platelets 159 K/mcL Invalid Interpretation Code 139 - 354 [facility] Segmented Neut 49.1 % Invalid Interpretation Code [facility] WBC (Leukocytes) 6.3 K/mcL Invalid Interpretation Code 3.6 - 10.4 [facility] CBC with Diffon 05-10-2018 Basophils #/vol (Bld) 0.1 K/mcL Normal 0-0.2 [facility] Comment on above: Performed By: #### F ERR, LYTES, CALCM, BUNCR, IRON, TFERR, ALB, PHOS, PTHI #### Unless otherwise noted, all testing performed by [place] [address] CLIA: [id number] German Tutor: Eric Moser M.D. Basophils/100 WBC (Bld) 1.5 % Normal [facility] Comment on above: Performed By: #### F ERR, LYTES, CALCM, BUNCR, IRON, TFERR, ALB, PHOS, PTHI #### Unless otherwise noted, all testing performed by [place] [address] CLIA: [id number] German Tutor: Eric Moser M.D. Eosinophils #/vol (Bld) 0.2 K/mcL Normal 0-0.5 [facility] Comment on above: Performed By: #### F ERR, LYTES, CALCM, BUNCR, IRON, TFERR, ALB, PHOS, PTHI #### Unless otherwise noted, all testing performed by [place] [address] CLIA: [id number] German Tutor: Eric Moser M.D. Eosinophils/100 WBC (Bld) 3.1 % Normal [facility] Comment on above: Performed By: #### F ERR, LYTES, CALCM, BUNCR, IRON, TFERR, ALB, PHOS, PTHI #### Unless otherwise noted, all testing performed by [place] [address] CLIA: [id number] German Tutor: Eric Moser M.D. Erythrocyte distribution width Ratio (RBC) 14.4 % High 10-14.3 [facility] Comment on above: Performed By: #### F ERR, LYTES, CALCM, BUNCR, IRON, TFERR, ALB, PHOS, PTHI #### Unless otherwise noted, all testing performed by [place] [address] CLIA: [id number] German Tutor: Eric Moser M.D. Hematocrit Volume Fraction (Bld) 39.9 % Normal 37.9-49.2 [facility] Comment on above: Performed By: #### F ERR, LYTES, CALCM, BUNCR, IRON, TFERR, ALB, PHOS, PTHI #### Unless otherwise noted, all testing performed by [place] [address] CLIA: [id number] German Tutor: Eric Moser M.D. Lymphocytes #/vol (Bld) 2.3 K/mcL Normal 0.9-3.6 [facility] Comment on above: Performed By: #### F ERR, LYTES, CALCM, BUNCR, IRON, TFERR, ALB, PHOS, PTHI #### Unless otherwise noted, all testing performed by [place] [address] CLIA: [id number] German Tutor: Eric Moser M.D. Lymphocytes/100 WBC (Bld) 36.0 % Normal [facility] Comment on above: Performed By: #### F ERR, LYTES, CALCM, BUNCR, IRON, TFERR, ALB, PHOS, PTHI #### Unless otherwise noted, all testing performed by [place] [address] CLIA: [id number] German Tutor: Eric Moser M.D. MCH Entitic mass (RBC) 35.1 pg High 27.7-34.6 [facility] Comment on above: Performed By: #### F ERR, LYTES, CALCM, BUNCR, IRON, TFERR, ALB, PHOS, PTHI #### Unless otherwise noted, all testing performed by [place] [address] CLIA: [id number] German Tutor: Eric Moser M.D. MCHC mass conc (RBC) 34.1 g/dL Normal 32.9-35.5 [facility] Comment on above: Performed By: #### F ERR, LYTES, CALCM, BUNCR, IRON, TFERR, ALB, PHOS, PTHI #### Unless otherwise noted, all testing performed by [place] [address] CLIA: [id number] German Tutor: Eric Moser M.D. MCV Entitic volume (RBC) 103.0 fL High 82.8-99.3 [facility] Comment on above: Performed By: #### F ERR, LYTES, CALCM, BUNCR, IRON, TFERR, ALB, PHOS, PTHI #### Unless otherwise noted, all testing performed by [place] [phone] CLIA: [id number] German Tutor: Eric Moser M.D. Monocytes #/vol (Bld) 0.6 K/mcL Normal 0.2-0.6 [facility] Comment on above: Performed By: #### F ERR, LYTES, CALCM, BUNCR, IRON, TFERR, ALB, PHOS, PTHI #### Unless otherwise noted, all testing performed by [place] [phone] CLIA: [id number] German Tutor: Eric Moser M.D. Monocytes/100 WBC (Bld) 10.3 % Normal [facility] Comment on above: Performed By: #### F ERR, LYTES, CALCM, BUNCR, IRON, TFERR, ALB, PHOS, PTHI #### Unless otherwise noted, all testing performed by [place] [phone] CLIA: [id number] German Tutor: Eric Moser M.D. Neutrophils #/vol (Bld) 3.1 K/mcL Normal 1.4-6.8 [facility] Comment on above: Performed By: #### F ERR, LYTES, CALCM, BUNCR, IRON, TFERR, ALB, PHOS, PTHI #### Unless otherwise noted, all testing performed by [place] [address] CLIA: [id number] German Tutor: Eric Moser M.D. Platelet mean volume Entitic volume (Bld) 9.8 fL Normal 6.6-10.8 [facility] Comment on above: Performed By: #### F ERR, LYTES, CALCM, BUNCR, IRON, TFERR, ALB, PHOS, PTHI #### Unless otherwise noted, all testing performed by [place] [address] CLIA: [id number] German Tutor: Eric Moser M.D. Platelets #/vol (Bld) 159 K/mcL Normal 139-354 [facility] Comment on above: Performed By: #### F ERR, LYTES, CALCM, BUNCR, IRON, TFERR, ALB, PHOS, PTHI #### Unless otherwise noted, all testing performed by [place] [address] CLIA: [id number] German Tutor: Eric Moser M.D. RBC #/vol (Bld) 3.87 M/mcL Low 4.0-5.5 [facility] Comment on above: Performed By: #### F ERR, LYTES, CALCM, BUNCR, IRON, TFERR, ALB, PHOS, PTHI #### Unless otherwise noted, all testing performed by [place] [address] CLIA: [id number] German Tutor: Eric Moser M.D. Segmented Neut % 49.1 % Normal [facility] Comment on above: Performed By: #### F ERR, LYTES, CALCM, BUNCR, IRON, TFERR, ALB, PHOS, PTHI #### Unless otherwise noted, all testing performed by [place] [address] CLIA: [id number] German Tutor: Eric Moser M.D. WBC #/vol (Bld) 6.3 K/mcL Normal 3.6-10.4 [facility] Comment on above: Performed By: #### F ERR, LYTES, CALCM, BUNCR, IRON, TFERR, ALB, PHOS, PTHI #### Unless otherwise noted, all testing performed by [place] [address] CLIA: [id number] German Tutor: Eric Moser M.D. [facility] 05-10-2018 Alanine aminotransferase (ALT) 30 U/L Normal 14-65 [facility] Comment on above: This test result [...] Unless otherwise noted, all testing performed by [place] [address] CLIA: [id number] German Tutor: Eric Moser M.D. Albumin 3.4 g/dL Normal 3.2-5.2 [facility] Comment on above: Performed By: #### F ERR, LYTES, CALCM, BUNCR, IRON, TFERR, ALB, PHOS, PTHI #### Unless otherwise noted, all testing performed by [place] [address] CLIA: [id number] German Tutor: Eric Moser M.D. Alkaline phosphatase (ALP) 48 U/L Normal 40-150 [facility] [place] [facility] Comment on above: Performed By: #### F ERR, LYTES, CALCM, BUNCR, IRON, TFERR, ALB, PHOS, PTHI #### Unless otherwise noted, all testing performed by [place] [address] CLIA: [id number] German Tutor: Eric Moser M.D. Aspartate aminotransferase (AST) 26 U/L Normal 0-45 [facility] Comment on above: This test result [...] Unless otherwise noted, all testing performed by [place] [address] CLIA: [id number] German Tutor: Eric Moser M.D. Bilirubin (total) 0.6 mg/dL Normal 0.3-1.2 [facility] Comment on above: Performed By: #### F ERR, LYTES, CALCM, BUNCR, IRON, TFERR, ALB, PHOS, PTHI #### Unless otherwise noted, all testing performed by [place] [address] CLIA: [id number] German Tutor: Eric Moser M.D. Calcium 9.2 mg/dL Normal 8.4-10.2 [facility] Comment on above: Performed By: #### F ERR, LYTES, CALCM, BUNCR, IRON, TFERR, ALB, PHOS, PTHI #### Unless otherwise noted, all testing performed by [place] [address] CLIA: [id number] German Tutor: Eric Moser M.D. Chloride 106 mmol/L Normal 98-108 [facility] [facility] Comment on above: Performed By: #### F ERR, LYTES, CALCM, BUNCR, IRON, TFERR, ALB, PHOS, PTHI #### Unless otherwise noted, all testing performed by [place] [address] CLIA: [id number] German Tutor: Eric Moser M.D. CO2 24 mmol/L Normal 21-32 [facility] Comment on above: Performed By: #### F ERR, LYTES, CALCM, BUNCR, IRON, TFERR, ALB, PHOS, PTHI #### Unless otherwise noted, all testing performed by [place] [address] CLIA: [id number] German Tutor: Eric Moser M.D. Creatinine 1.26 mg/dL Normal 0.80-1.30 [facility] [place] [facility] Comment on above: Performed By: #### F ERR, LYTES, CALCM, BUNCR, IRON, TFERR, ALB, PHOS, PTHI #### Unless otherwise noted, all testing performed by [place] [address] CLIA: [id number] German Tutor: Eric Moser M.D. eGFR (black) mL/min/{1.73_m2} Normal [facility] Comment on above: GFR Calc Result Comment: Afri can Burkinan GFR Calc Performed By: #### F ERR, LYTES, CALCM, BUNCR, IRON, TFERR, ALB, PHOS, PTHI #### Unless otherwise noted, all testing performed by [place] [address] CLIA: [id number] German Tutor: Eric Moser M.D. eGFR (non-black) 57 mL/min/{1.73_m2} Low >60 [facility] Comment on above: Non- GFR Calc eGFR [...] Unless otherwise noted, all testing performed by [place] [address] CLIA: [id number] German Tutor: Eric Moser M.D. Glucose mass conc 81 mg/dL Normal 70-99 [facility] Comment on above: This test result [...] Unless otherwise noted, all testing performed by [place] [address] CLIA: [id number] German Tutor: Eric Moser M.D. Potassium molar conc 4.5 mmol/L Normal 3.5-5.1 [facility] Comment on above: Performed By: #### F ERR, LYTES, CALCM, BUNCR, IRON, TFERR, ALB, PHOS, PTHI #### Unless otherwise noted, all testing performed by [place] [address] CLIA: [id number] German Tutor: Eric Moser M.D. Protein 7.0 g/dL Normal 6.0-8.0 [facility] Comment on above: Performed By: #### F ERR, LYTES, CALCM, BUNCR, IRON, TFERR, ALB, PHOS, PTHI #### Unless otherwise noted, all testing performed by [place] [address] CLIA: [id number] German Tutor: Eric Moser M.D. Sodium 140 mmol/L Normal 135-145 [facility] [place] [facility] Comment on above: Performed By: #### F ERR, LYTES, CALCM, BUNCR, IRON, TFERR, ALB, PHOS, PTHI #### Unless otherwise noted, all testing performed by [place] [address] CLIA: [id number] German Tutor: Eric Moser M.D. Urea nitrogen 19 mg/dL Normal 8-25 [facility] Comment on above: Performed By: #### F ERR, LYTES, CALCM, BUNCR, IRON, TFERR, ALB, PHOS, PTHI #### Unless otherwise noted, all testing performed by [place] [address] CLIA: [id number] German Tutor: Eric Moser M.D. Ferritinon 05-10-2018 Ferritin 58 ng/mL Invalid Interpretation Code 30 - 400 ng/mL [facility] Comment on above: Samples from patient s routinely receiving high dose biotin therapy (100-300 mg/day) may show falsely decreased results. Please correlate clinically. Ferritin mass conc 58 ng/mL Normal 30-400 [facility] Comment on above: Result Comment: Samp les from patients routinely receiving high dose biotin therapy (100-300 mg/day) may show falsely decreased results. Please correlate clinically. Performed By: #### F ERR, LYTES, CALCM, BUNCR, IRON, TFERR, ALB, PHOS, PTHI #### Unless otherwise noted, all testing performed by [place] [address] CLIA: [id number] German Tutor: Eric Moser M.D. Reticulocyteon 05-10-2018 Reticulocyte 1.72 % High 0.5-1.7 [facility] Comment on above: Performed By: #### F ERR, LYTES, CALCM, BUNCR, IRON, TFERR, ALB, PHOS, PTHI #### Unless otherwise noted, all testing performed by [place] [address] CLIA: [id number] German Tutor: Eric Moser M.D. Reticulocytes 1.72 % High 0.5 - 1.7 % [facility] [facility] Segmental doppler lower extr emity arterialon 05-07-2018 Segmental doppler lower extremity arterial Non-Invasive Vascular Patient: TONIO Oseguera [facility] Rec#: [id number] (Age): 1950(68y) Study Date: 05/07/2018 Room#: Type: Outpatient Sex: M Reading: Tristen Menjivar MD, RPVI Referring: Tristen Menjivar MD Carbon Grinder: Michelle Osei RVForrest Procedure Info: [id number] Study Quality: Lower Arterial Doppler: adequate Diagnosis: [...] extremity arterial Interface, Rad [facility] 05/07/2018 5:28 PM EDT Non-Invasive Vascular Patient: TONIO Oseguera [facility] Rec#: [id number] (Age): 1950(68y) Study Date: 05/07/2018 Room#: Type: Outpatient Sex: M Reading: Tristen Menjivar MD, RPVI Referring: Tristen Menjiavr MD Carbon Grinder: Michelle Osei RVT Procedure Info: [id number] Study Quality: Lower Arterial Doppler: adequate Diagnosis: [...] at 05/07/2018 17:26:13 by: Tristen Menjivar MD, VI Invalid Interpretation Code C RAD Auto Diffon 04-25-2018 Basophils #/vol (Bld) 0.0 E3/mcL Normal 0.0-0.2 [facility] Comment on above: Order Comment: Order Added by Discern Expert. Performed By: #### 2 [id number] #### YENNY RemHemo [address] [place] [address] Basophils/100 WBC (Bld) 0.7 % Normal 0.0-2.0 [facility] Comment on above: Order Comment: Order Added by Discern Expert. Performed By: #### 2 [id number] #### YENNY RemHemo [address] [place] [address] Eos Absolute 0.3 E3/mcL Normal 0.0-0.7 [facility] Comment on above: Order Comment: Order Added by Discern Expert. Performed By: #### 2 [id number] #### YENNY RemHemo [address] [place] [address] Eosinophils/100 WBC (Bld) 4.4 % Normal 0.0-11.0 [facility] Comment on above: Order Comment: Order Added by Discern Expert. Performed By: #### 2 [id number] #### YENNY RemHemo [address] [place] [address] Lymphocytes #/vol (Bld) 1.9 E3/mcL Normal 1.2-3.4 [facility] Comment on above: Order Comment: Order Added by Discern Expert. Performed By: #### 2 [id number] #### YENNY RemHemo [address] [place] [address] Lymphocytes/100 WBC (Bld) 30.8 % Normal 20.0-55.0 [facility] Comment on above: Order Comment: Order Added by Discern Expert. Performed By: #### 2 [id number] #### YENNY RemHemo [address] [place] [address] Sabine Absolute 0.5 E3/mcL Normal 0.0-0.7 [facility] Comment on above: Order Comment: Order Added by Discern Expert. Performed By: #### 2 [id number] #### YENNY MoyaHemo [address] [place] [phone] Monocytes/100 WBC (Bld) 8.6 % Normal 0.0-10.0 [facility] Comment on above: Order Comment: Order Added by Discern Expert. Performed By: #### 2 [id number] #### YENNY MoyaHemo [address] [place], [place] [address] Neutro Absolute 3.5 E3/mcL Normal 1.4-6.5 [facility] Comment on above: Order Comment: Order Added by Discern Expert. Performed By: #### 2 [id number] #### YENNY MoyaHemo [address] [place] [address] Neutro Auto 55.5 % Normal 37.0-75.0 [facility] Comment on above: Order Comment: Order Added by Discern Expert. Performed By: #### 2 080055 #### YENNY MoyaHemo [facility] [place] [id number] CBC w/ Auto Diffon 8 Erythrocyte distribution width Ratio (RBC) 14.4 % Normal 11.5-14.5 [facility] Comment on above: Performed By: #### 2 [id number] #### YENNY MoyaHemo [address] [place], [place] [address] Hematocrit Volume Fraction (Bld) 38.9 % Low 42.0-52.0 [facility] Comment on above: Performed By: #### 2 [id number] #### YENNY MoyaHemo [address] [place], [place] [address] Hemoglobin mass conc (Bld) 13.2 g/dL Low 13.5-18.0 [facility] Comment on above: Performed By: #### 2 [id number] #### YENNY MoyaHemo [address] [place] [address] MCH Entitic mass (RBC) 34.4 pg High 27.0-31.0 [facility] Comment on above: Performed By: #### 2 [id number] #### YENNY NitaHemo [address] [place] [phone] MCHC mass conc (RBC) 34.0 g/dL Normal 33.0-37.0 [facility] Comment on above: Performed By: #### 2 587396 #### YENNY Haidero [address] [place] [phone] MCV Entitic volume (RBC) 101.2 fL High 78.0-100.0 [facility] Comment on above: Performed By: #### 2 830805 #### YENNY MoyaHemo [address] [place], [place] [address] Platelet mean volume Entitic volume (Bld) 9.7 fL Normal 7.4-11.0 [facility] Comment on above: Performed By: #### 2 899638 #### YENNYBere MoyaHemo [address] [place], [place] [address] Platelets #/vol (Bld) 169 E3/mcL Normal 130-400 [facility] Comment on above: Performed By: #### 2 959254 #### YENNYBere MoyaHemo [address] [place], [place] [address] RBC #/vol (Bld) 3.84 E6/mcL Low 3.90-6.10 [facility] Comment on above: Performed By: #### 2 [id number] #### YENNYBere MoyaHemo [address] [place], [place] [address] WBC #/vol (Bld) 6.2 E3/mcL Normal 3.6-11.0 [facility] Comment on above: Performed By: #### 2 [id number] #### YENNY MoyaHemo [address] [place], [place] [id number] CMPon 04-25-2018 Albumin mass conc 3.3 g/dL Normal 3.2-5.0 [facility] Comment on above: Performed By: #### 2 911542 #### YENNYBere MoyaChem [facility] [place] [phone] Albumin/Globulin mass ratio 1.1 {ratio} Normal 1.1-1.9 [facility] Comment on above: Performed By: #### 2 056609 #### YENNYBere [facility]oya[facility] [address] [place], [place] [address] Alk Phos 45 Int._Unit/L Normal 42-121 [facility] Comment on above: Performed By: #### 2 986844 #### YENNY Rem[facility] [address] [place] [address] ALT enzyme act/vol 21 Int._Unit/L Normal 10-40 [facility] Comment on above: Performed By: #### 2 803035 #### YENNY [facility] [address] [place] [address] AST enzyme act/vol 24 Int._Unit/L Normal 10-42 [facility] Comment on above: Performed By: #### 2 191612 #### YENNY [facility] [address] [place] [address] Bili Total 0.8 mg/dL Normal 0.2-1.0 [facility] Comment on above: Performed By: #### 2 931401 #### YENNY [facility] [address] [place] [address] Creatinine mass conc 1.4 mg/dL High 0.6-1.3 [facility] Comment on above: Performed By: #### 2 763865 #### YENNY [facility] [address] [place] [address] Globulin mass conc (S) 2.9 g/dL Normal 2.0-4.0 [facility] Comment on above: Performed By: #### 2 770298 #### YENNY [facility] [address] [place] [address] Protein mass conc 6.2 g/dL Low 6.4-8.3 [facility] Comment on above: Performed By: #### 2 160305 #### YENNY [facility] [address] [place] [address] Urea nitrogen mass conc 25 mg/dL High 7-18 [facility] Comment on above: Performed By: #### 2 156631 #### YENNY [facility] [address] [place] [address] Urea nitrogen/Creatinine mass ratio 17.9 ratio Normal 5.4-30.0 [facility] Comment on above: Performed By: #### 2 968469 #### YENNY [facility] [address] [place] [address] Calcium mass conc 8.9 mg/dL Normal 8.4-10.2 [facility] Comment on above: Performed By: #### 2 578739 #### YENNY [facility] [address] [place] [address] Chloride molar conc 105 mmol/L Normal 98-107 [facility] Comment on above: Performed By: #### 2 715546 #### YENNY [facility] [address] [place] [address] CO2 molar conc 26.1 mmol/L Normal 24.0-30.0 [facility] Comment on above: Performed By: #### 2 344042 #### YENNY [facility] [address] [place] [address] Glucose mass conc 62 mg/dL Low 70-99 [facility] Comment on above: Performed By: #### 2 378681 #### YENNY [facility] [address] [place] [address] Potassium molar conc 4.5 mmol/L Normal 3.5-5.1 [facility] Comment on above: Performed By: #### 2 009475 #### YENNY [facility] [address] [place] [address] Sodium molar conc 139 mmol/L Normal 136-145 [facility] Comment on above: Performed By: #### 2 988259 #### YENNY [facility] [address] [place] [address] [id number] 04-25-2018 Hemoglobin A1c/Hemoglobin.total mass fraction (Bld) 6.2 % Normal 4.0-6.3 [facility] Comment on above: Performed By: #### 5 [id number] #### YENNY POC Subsection [address] [place] [address] Lipid Profileon 04-25-2018 Cholesterol in HDL mass conc 47 mg/dL Normal >=41 [facility] Comment on above: Performed By: #### 3 [id number] #### YENNY [facility] [address] [place] [address] Cholesterol in LDL mass conc 115 mg/dL Normal 0-130 [facility] Comment on above: Result Comment: <100 OPTIMAL 100-129 NEAR / ABOVE OPTIMAL 130-159 BORDERLINE HIGH 160-189 HIGH >190 VERY HIGH CALC LDL NOT VALID WHEN TRIGLYCERIDE IS >400 MG/DL Performed By: #### 3 [id number] #### YENNY [facility] [address] [place] [address] Cholesterol in VLDL mass conc 24 mg/dL Normal [facility] Comment on above: Performed By: #### 3 [id number] #### YENNY [facility] [address] [place] [address] Cholesterol mass conc 186 mg/dL Normal 50-200 [facility] Comment on above: Result Comment: TOTA L CHOLEESTEROL: <200 NORMAL 200 - 239 BORDERLINE HIGH >240 HIGH Performed By: #### 3 [id number] #### YENNY [facility] [address] [place] [address] Triglyceride mass conc 118 mg/dL Normal 35-150 [facility] Comment on above: Result Comment: <150 NORMAL 150-199 BORDERLINE HIGH 200-499 HIGH >500 VERY HIGH Performed By: #### 3 [id number] #### YENNY [facility] [address] [place] [address] Magnesiumon 04-25-2018 Magnesium mass conc 1.7 mg/dL Normal 1.7-2.8 [facility] Comment on above: Performed By: #### 2 832107 #### YENNY [facility] [address] [place] [address] Microalb/Creat Ratioon 04-25 Creatinine mass conc 110.0 mg/dL Normal 20.0-300.0 [facility] Comment on above: Performed By: #### 5 [id number] #### YENNY POC Subsection [address] [place] [address] Creatinine mass conc 1123 ug/mg High 0-30 [facility] Comment on above: Performed By: #### 5 [id number] #### YENNY POC Subsection [address] [place] [address] Ur Microalbumin 123.5 mg/dL High 0.0-1.9 [facility] Comment on above: Performed By: #### 5 [id number] #### YENNY POC Subsection [address] [place] [address] eGFRon 04-25-2018 GFR/1.73 sq M predicted among non-blacks MDRD vol rate/area (S/P/Bld) mL/min/{1.73_m2} [facility] Comment on above: Order Comment: Order added by Discern Expert. Performed By: #### 1 [id number] #### YENNY [facility] [address] [place] [address] GFR/1.73 sq M predicted among non-blacks MDRD vol rate/area (S/P/Bld) 50 mL/min/1.73 m2 [facility] Comment on above: Order Comment: Order added by Discern Expert. Performed By: #### 1 [id number] #### YENNY [facility] [place] [address] C Woundon 04-10-2018 C Wound Final Report: [...] : <=4 S SXT : <=2/38 S [facility] Comment on above: Performed By: #### 2 [id number] #### YENNY Microbiology Subsection [address] [place], [place] [address] CT Thorax w/o Contraston CT Thorax w/o [...] by: Seven Garrido MD Technologist: MLL Normal [facility] Albuminon 12-20-2017 Albumin 3.4 g/dL Normal 3.2-5.2 [facility] [facility] Comment on above: Performed By: #### F ERR, LYTES, CALCM, BUNCR, IRON, TFERR, ALB, PHOS, PTHI #### Unless otherwise noted, all testing performed by [place] [address] CLIA: [id number] German Tutor: Eric Moser M.D. BUN and Creatinineon 018 Creatinine 1.19 mg/dL Normal 0.80-1.30 [facility] [facility] Comment on above: Performed By: #### F ERR, LYTES, CALCM, BUNCR, IRON, TFERR, ALB, PHOS, PTHI #### Unless otherwise noted, all testing performed by [place] [address] CLIA: [id number] German Tutor: Eric Moser M.D. eGFR (black) mL/min/{1.73_m2} Normal [facility] Comment on above: Result Comment: Afri can [place]kin[place] GFR Calc Performed By: #### F ERR, LYTES, CALCM, BUNCR, IRON, TFERR, ALB, PHOS, PTHI #### Unless otherwise noted, all testing performed by [place] [address] CLIA: [id number] German Tutor: Eric Moser M.D. eGFR (non-black) mL/min/{1.73_m2} Normal [facility] Comment on above: Result Comment: Non- GFR [...] Unless otherwise noted, all testing performed by [place] [address] CLIA: [id number] German Tutor: Eric Moser M.D. Urea nitrogen 15 mg/dL Normal 8-25 [facility] Comment on above: Performed By: #### F ERR, LYTES, CALCM, BUNCR, IRON, TFERR, ALB, PHOS, PTHI #### Unless otherwise noted, all testing performed by [place] [address] CLIA: [id number] German Tutor: Eric Moser M.D. CBC and Differentialon 12-20 Basophils 0.7 % Invalid Interpretation Code [facility] Basophils 0.0 K/mcL Invalid Interpretation Code 0 - 0.2 [facility] Eosinophils 0.2 K/mcL Invalid Interpretation Code 0 - 0.5 [facility] Erythrocytes (RBC) 3.41 M/mcL Low 4.0 - 5.5 [facility] Hematocrit (HCT) 35.0 % Low 37.9 - 49.2 % [facility] Hemoglobin (HGB) 12.1 g/dL Low 12.9-16.9 [facility] Comment on above: Performed By: #### R ETIC, ELPRS, IMMFRLTC, CBCDIF, IFIXSI #### Unless otherwise noted, all testing performed by [facility] [address], [place] [address] CLIA: [id number] German Tutor: Eric Moser M.D. Lymphocytes 2.0 K/mcL Invalid Interpretation Code 0.9 - 3.6 [facility] MCH 35.4 pg High 27.7 - 34.6 pg [facility] MCHC 34.5 g/dL Invalid Interpretation Code 32.9 - 35.5 g/dL [facility] MCV 102.4 fL High 82.8 - 99.3 [facility] Monocytes 0.5 K/mcL Invalid Interpretation Code 0.2 - 0.6 [facility] Neutrophils 4.2 K/mcL Invalid Interpretation Code 1.4 - 6.8 [facility] Platelet mean volume (PMV) 9.6 fL Invalid Interpretation Code 6.6 - 10.8 [facility] Platelets 201 K/mcL Invalid Interpretation Code 139 - 354 [facility] RDW-CA 12.5 % Invalid Interpretation Code 10 - 14.3 % [facility] Segmented Neut 60.2 % Invalid Interpretation Code [facility] T8 suppressor/100 cells 2.4 10*3/uL Invalid Interpretation Code [facility] T8 suppressor/100 cells 28.9 10*3/uL Invalid Interpretation Code [facility] T8 suppressor/100 cells 7.8 10*3/uL Invalid Interpretation Code [facility] WBC (Leukocytes) 6.9 K/mcL Invalid Interpretation Code 3.6 - 10.4 [facility] CBC with Diffon 12-20-2017 Basophils #/vol (Bld) 0.0 K/mcL Normal 0-0.2 [facility] Comment on above: Performed By: #### R ETIC, ELPRS, IMMFRLTC, CBCDIF, IFIXSI #### Unless otherwise noted, all testing performed by [place] [address] CLIA: [id number] German Tutor: Eric Moser M.D. Basophils/100 WBC (Bld) 0.7 % Normal [facility] Comment on above: Performed By: #### R ETIC, ELPRS, IMMFRLTC, CBCDIF, IFIXSI #### Unless otherwise noted, all testing performed by [place] [address] CLIA: [id number] German Tutor: Eric Moser M.D. Eosinophils #/vol (Bld) 0.2 K/mcL Normal 0-0.5 [facility] Comment on above: Performed By: #### R ETIC, ELPRS, IMMFRLTC, CBCDIF, IFIXSI #### Unless otherwise noted, all testing performed by [place] [address] CLIA: [id number] German Tutor: Eric Moser M.D. Eosinophils/100 WBC (Bld) 2.4 % Normal [facility] Comment on above: Performed By: #### R ETIC, ELPRS, IMMFRLTC, CBCDIF, IFIXSI #### Unless otherwise noted, all testing performed by [place] [address] CLIA: [id number] German Tutor: Eric Moser M.D. Erythrocyte distribution width Ratio (RBC) 12.5 % Normal 10-14.3 [facility] Comment on above: Performed By: #### R ETIC, ELPRS, IMMFRLTC, CBCDIF, IFIXSI #### Unless otherwise noted, all testing performed by [place] [address] CLIA: [id number] German Tutor: Eric Moser M.D. Hematocrit Volume Fraction (Bld) 35.0 % Low 37.9-49.2 [facility] Comment on above: Performed By: #### R ETIC, ELPRS, IMMFRLTC, CBCDIF, IFIXSI #### Unless otherwise noted, all testing performed by [place] [address] CLIA: [id number] German Tutor: Eric Moser M.D. Lymphocytes #/vol (Bld) 2.0 K/mcL Normal 0.9-3.6 [facility] Comment on above: Performed By: #### R ETIC, ELPRS, IMMFRLTC, CBCDIF, IFIXSI #### Unless otherwise noted, all testing performed by [place] [phone] CLIA: [id number] German Tutor: Eric Moser M.D. Lymphocytes/100 WBC (Bld) 28.9 % Normal [facility] Comment on above: Performed By: #### R ETIC, ELPRS, IMMFRLTC, CBCDIF, IFIXSI #### Unless otherwise noted, all testing performed by [place] [address] CLIA: [id number] German Tutor: Eric Msoer M.D. MCH Entitic mass (RBC) 35.4 pg High 27.7-34.6 [facility] Comment on above: Performed By: #### R ETIC, ELPRS, IMMFRLTC, CBCDIF, IFIXSI #### Unless otherwise noted, all testing performed by [place] [address] CLIA: [id number] German Tutor: Eric Moser M.D. MCHC mass conc (RBC) 34.5 g/dL Normal 32.9-35.5 [facility] Comment on above: Performed By: #### R ETIC, ELPRS, IMMFRLTC, CBCDIF, IFIXSI #### Unless otherwise noted, all testing performed by [place] [address] CLIA: [id number] German Tutor: Eric Moser M.D. MCV Entitic volume (RBC) 102.4 fL High 82.8-99.3 [facility] Comment on above: Performed By: #### R ETIC, ELPRS, IMMFRLTC, CBCDIF, IFIXSI #### Unless otherwise noted, all testing performed by [place] [address] CLIA: [id number] German Tutor: Eric Moser M.D. Monocytes #/vol (Bld) 0.5 K/mcL Normal 0.2-0.6 [facility] Comment on above: Performed By: #### R ETIC, ELPRS, IMMFRLTC, CBCDIF, IFIXSI #### Unless otherwise noted, all testing performed by [place] [address] CLIA: [id number] German Tutor: Eric Moser M.D. Monocytes/100 WBC (Bld) 7.8 % Normal [facility] Comment on above: Performed By: #### R ETIC, ELPRS, IMMFRLTC, CBCDIF, IFIXSI #### Unless otherwise noted, all testing performed by [place] [address] CLIA: [id number] German Tutor: Eric Moser M.D. Neutrophils #/vol (Bld) 4.2 K/mcL Normal 1.4-6.8 [facility] Comment on above: Performed By: #### R ETIC, ELPRS, IMMFRLTC, CBCDIF, IFIXSI #### Unless otherwise noted, all testing performed by [place] [address] CLIA: [id number] German Tutor: Eric Moser M.D. Platelet mean volume Entitic volume (Bld) 9.6 fL Normal 6.6-10.8 [facility] Comment on above: Performed By: #### R ETIC, ELPRS, IMMFRLTC, CBCDIF, IFIXSI #### Unless otherwise noted, all testing performed by [place] [address] CLIA: [id number] German Tutor: Eric Moser M.D. Platelets #/vol (Bld) 201 K/mcL Normal 139-354 [facility] Comment on above: Performed By: #### R ETIC, ELPRS, IMMFRLTC, CBCDIF, IFIXSI #### Unless otherwise noted, all testing performed by [place] [address] CLIA: [id number] German Tutor: Eric Moser M.D. RBC #/vol (Bld) 3.41 M/mcL Low 4.0-5.5 [facility] Comment on above: Performed By: #### R ETIC, ELPRS, IMMFRLTC, CBCDIF, IFIXSI #### Unless otherwise noted, all testing performed by [place] [address] CLIA: [id number] German Tutor: Eric Moser M.D. Segmented Neut % 60.2 % Normal [facility] Comment on above: Performed By: #### R ETIC, ELPRS, IMMFRLTC, CBCDIF, IFIXSI #### Unless otherwise noted, all testing performed by [place] [address] CLIA: [id number] German Tutor: Eric Moser M.D. WBC #/vol (Bld) 6.9 K/mcL Normal 3.6-10.4 [facility] Comment on above: Performed By: #### R ETIC, ELPRS, IMMFRLTC, CBCDIF, IFIXSI #### Unless otherwise noted, all testing performed by [place] [address] CLIA: [id number] German Tutor: Eric Moser M.D. Calcium Levelon 12-20-2017 Calcium 8.7 mg/dL Normal 8.4-10.2 [facility] Comment on above: Performed By: #### F ERR, LYTES, CALCM, BUNCR, IRON, TFERR, ALB, PHOS, PTHI #### Unless otherwise noted, all testing performed by [place] [address] CLIA: [id number] German Tutor: Eric Moser M.D. Electrolyte Panelon 12-20-19 18 Chloride 108 mmol/L Normal 98-108 [facility] Comment on above: Performed By: #### F ERR, LYTES, CALCM, BUNCR, IRON, TFERR, ALB, PHOS, PTHI #### Unless otherwise noted, all testing performed by [place] [address] CLIA: [id number] German Tutor: Eric Moser M.D. CO2 26 mmol/L Normal 21-32 [facility] Comment on above: Performed By: #### F ERR, LYTES, CALCM, BUNCR, IRON, TFERR, ALB, PHOS, PTHI #### Unless otherwise noted, all testing performed by [place] [address] CLIA: [id number] German Tutor: Eric Moser M.D. Potassium 3.9 mmol/L Normal 3.5-5.1 [facility] Comment on above: Performed By: #### F ERR, LYTES, CALCM, BUNCR, IRON, TFERR, ALB, PHOS, PTHI #### Unless otherwise noted, all testing performed by [place] [address] CLIA: [id number] German Tutor: Eric Moser M.D. Sodium 140 mmol/L Normal 135-145 [facility] Comment on above: Performed By: #### F ERR, LYTES, CALCM, BUNCR, IRON, TFERR, ALB, PHOS, PTHI #### Unless otherwise noted, all testing performed by [place] [address] CLIA: [id number] German Tutor: Eric Moser M.D. Ferritinon 12-20-2017 Ferritin 95 ng/mL Invalid Interpretation Code 30 - 400 ng/mL [facility] Ferritin mass conc 95 ng/mL Normal 30-400 [facility] Comment on above: Result Comment: Samp les from patients routinely receiving high dose biotin therapy (100-300 mg/day) may show falsely decreased results. Please correlate clinically. Performed By: #### F ERR, LYTES, CALCM, BUNCR, IRON, TFERR, ALB, PHOS, PTHI #### Unless otherwise noted, all testing performed by [place] [address] CLIA: [id number] German Tutor: Eric Moser M.D. Immunofixationon 12-20-2017 Comments (IFIXS) Normal [facility] Comment on above: Result Comment: No p araproteins detected. A negative serum immunofixation and/or serum protein electrophoresis is insufficient to rule out a monoclonal protein. Recommend serum free light chains if clinically indicated. Reviewed by Pathologist: Hayes House MD. Test Performed by [facility] [address] [place] [address] Performed By: #### F ERR, LYTES, CALCM, BUNCR, IRON, TFERR, ALB, PHOS, PTHI #### Unless otherwise noted, all testing performed by [place] [address] CLIA: [id number] German Tutor: Eric Moser M.D. Immunofixation Normal Normal Normal [facility] Comment on above: Performed By: #### F ERR, LYTES, CALCM, BUNCR, IRON, TFERR, ALB, PHOS, PTHI #### Unless otherwise noted, all testing performed by [place] [phone] CLIA: [id number] German Tutor: Eric Moser M.D. Immunoglobulin Free Lt Chain son 12-20-2017 [place] Free Light Chains 2.57 mg/dL High 0.3300-1.94 [facility] Comment on above: Performed By: #### F ERR, LYTES, CALCM, BUNCR, IRON, TFERR, ALB, PHOS, PTHI #### Unless otherwise noted, all testing performed by [place] [phone] CLIA: [id number] German Tutor: Eric Moser M.D. [place]-Lambda Ratio 1.21 Normal 0.2600-1.65 [facility] Comment on above: Result Comment: Test Performed by: [address] [address] Performed By: #### F ERR, LYTES, CALCM, BUNCR, IRON, TFERR, ALB, PHOS, PTHI #### Unless otherwise noted, all testing performed by [place] [address] CLIA: [id number] German Tutor: Eric Moser M.D. Lambda Free Light Chain 2.13 mg/dL Normal 0.5700-2.63 [facility] Comment on above: Performed By: #### F ERR, LYTES, CALCM, BUNCR, IRON, TFERR, ALB, PHOS, PTHI #### Unless otherwise noted, all testing performed by [place] [address] CLIA: [id number] German Tutor: Eric Moser M.D. Ironon 12-20-2017 Interpretation and review of laboratory results Abnormal Invalid Interpretation Code [facility] Iron 64 ug/dL Low 65 - 175 [facility] Iron, Totalon 12-20-2017 Iron, Total 64 mcg/dL Low 65-175 [facility] Comment on above: Performed By: #### F ERR, LYTES, CALCM, BUNCR, IRON, TFERR, ALB, PHOS, PTHI #### Unless otherwise noted, all testing performed by [place] [address] CLIA: [id number] German Tutor: Eric Moser M.D. Parathyroid Hormoneon 2017 Parathyroid Hormone 25.4 pg/mL Normal 18.4-80.1 [facility] Comment on above: Result Comment: Samp les from patients routinely receiving high dose biotin therapy may show falsely depressed results. Additional information may be required for diagnosis. Performed By: #### F ERR, LYTES, CALCM, BUNCR, IRON, TFERR, ALB, PHOS, PTHI #### Unless otherwise noted, all testing performed by [place] [address] CLIA: [id number] German Tutor: Eric Moser M.D. Phosphoruson 12-20-2017 Phosphate 2.8 mg/dL Normal 2.3-3.7 [facility] Comment on above: Performed By: #### F ERR, LYTES, CALCM, BUNCR, IRON, TFERR, ALB, PHOS, PTHI #### Unless otherwise noted, all testing performed by [place] [address] CLIA: [id number] German Tutor: Eric Moser M.D. Protein Electrophoresis, [facility] umon 12-20-2017 Albumin mass conc 3.5 g/dL Normal 3.1-5.5 [facility] Comment on above: Performed By: #### F ERR, LYTES, CALCM, BUNCR, IRON, TFERR, ALB, PHOS, PTHI #### Unless otherwise noted, all testing performed by [place] [address] CLIA: [id number] German Tutor: Eric Moser M.D. Alpha-1 0.3 g/dL Normal 0.2-0.5 [facility] Comment on above: Performed By: #### F ERR, LYTES, CALCM, BUNCR, IRON, TFERR, ALB, PHOS, PTHI #### Unless otherwise noted, all testing performed by [place] [address] CLIA: [id number] German Tutor: Eric Moser M.D. Alpha-2 0.8 g/dL Normal 0.4-1.1 [facility] Comment on above: Performed By: #### F ERR, LYTES, CALCM, BUNCR, IRON, TFERR, ALB, PHOS, PTHI #### Unless otherwise noted, all testing performed by [place] [address] CLIA: [id number] German Tutor: Eric Moser M.D. Beta 1.2 g/dL Normal 0.6-1.3 [facility] Comment on above: Performed By: #### F ERR, LYTES, CALCM, BUNCR, IRON, TFERR, ALB, PHOS, PTHI #### Unless otherwise noted, all testing performed by [place] [address] CLIA: [id number] German Tutor: Eric Moser M.D. Comment (SPE) Reviewed by patholog ist: Hayes House M.D. [facility] Comment on above: Performed By: #### F ERR, LYTES, CALCM, BUNCR, IRON, TFERR, ALB, PHOS, PTHI #### Unless otherwise noted, all testing performed by [place] [address] CLIA: [id number] German Tutor: Eric Moser M.D. Gamma 0.9 g/dL Normal 0.6-1.8 [facility] Comment on above: Performed By: #### F ERR, LYTES, CALCM, BUNCR, IRON, TFERR, ALB, PHOS, PTHI #### Unless otherwise noted, all testing performed by [place] [address] CLIA: [id number] German Tutor: Eric Moser M.D. Interpretation ([facility]) Normal [facility] Comment on above: Result Comment: Norm al pattern. Serum protein electrophoresis is insufficient to rule out a monoclonal protein. Recommend serum immunofixation and serum free light chains if clinically indicated. Test Performed by [facility] [address] [place] [address] Performed By: #### F ERR, LYTES, CALCM, BUNCR, IRON, TFERR, ALB, PHOS, PTHI #### Unless otherwise noted, all testing performed by [place] [address] CLIA: [id number] German Tutor: Eric Moser M.D. Protein mass conc 6.6 g/dL Normal 6.0-8.0 [facility] Comment on above: Performed By: #### F ERR, LYTES, CALCM, BUNCR, IRON, TFERR, ALB, PHOS, PTHI #### Unless otherwise noted, all testing performed by [place] [address] CLIA: [id number] German Tutor: Eric Moser M.D. Protein Panel, Urineon 12-20 Creatinine, Urine Random 74.00 mg/dL Normal [facility] Comment on above: Result Comment: No e stablished reference range. Performed By: #### F ERR, LYTES, CALCM, BUNCR, IRON, TFERR, ALB, PHOS, PTHI #### Unless otherwise noted, all testing performed by [place] [address] CLIA: [id number] German Tutor: Eric Moser M.D. Interpretation and review of laboratory results Abnormal Invalid Interpretation Code [facility] Protein Creatinine Ratio 2.26 High 0.0-0.2 [facility] Comment on above: Performed By: #### F ERR, LYTES, CALCM, BUNCR, IRON, TFERR, ALB, PHOS, PTHI #### Unless otherwise noted, all testing performed by [place] [address] CLIA: [id number] German Tutor: Eric Moser M.D. Protein mass conc (U) 167.4 mg/dL Normal [facility] Comment on above: Performed By: #### F ERR, LYTES, CALCM, BUNCR, IRON, TFERR, ALB, PHOS, PTHI #### Unless otherwise noted, all testing performed by [place] [address] CLIA: [id number] German Tutor: Eric Moser M.D. Protein, Urine Random 167.4 mg/dL Invalid Interpretation Code [facility] Protein/Creatinine Ratio, Urine 2.26 1 High 0.0 - 0.2 [facility] Reticulocyteon 12-20-2017 Interpretation and review of laboratory results Abnormal Invalid Interpretation Code [facility] Reticulocyte 1.85 % High 0.5-1.7 [facility] Comment on above: Performed By: #### F ERR, LYTES, CALCM, BUNCR, IRON, TFERR, ALB, PHOS, PTHI #### Unless otherwise noted, all testing performed by [place] [address] CLIA: [id number] German Tutor: Eric Moser M.D. Reticulocytes 1.85 % High 0.5 - 1.7 % [facility] Transferrinon 12-20-2017 Transferrin 257.0 mg/dL Normal 212.0-360.0 [facility] Comment on above: Performed By: #### F ERR, LYTES, CALCM, BUNCR, IRON, TFERR, ALB, PHOS, PTHI #### Unless otherwise noted, all testing performed by [address] [place], [place] [address] CLIA: [id number] German Tutor: Eric Moser M.D. SMITH Teston 12-19-2017 SMITH Test Negative Normal Negative [facility] Comment on above: Performed By: #### [id number] #### YENNY Misc Micro SubSection , Glucose POCon 12-18-2017 Glucose mass conc 99 mg/dL Normal 70-99 [facility] Comment on above: Performed By: #### [id number] #### YENNY POC Subsection [address] [place] [address] Comprehensive Metabolic Pane jer 08-17-2017 Albumin mass conc 3.6 g/dL Invalid Interpretation Code 3.2 - 5.2 g/dL [facility] ALP enzyme act/vol 77 U/L Invalid Interpretation Code 40 - 150 U/L [facility] ALT enzyme act/vol 28 U/L Invalid Interpretation Code 14 - 65 U/L [facility] Comment on above: This test result alfredo ht be falsely depressed or falsely elevated on samples drawn from patients taking Sulfasalazine and Sulfapyridine. Venipuncture should occur prior to taking either of these drugs. AST enzyme act/vol 22 U/L Invalid Interpretation Code 0 - 45 U/L [facility] Comment on above: This test result alfredo ht be falsely depressed or falsely elevated on samples drawn from patients taking Sulfasalazine and Sulfapyridine. Venipuncture should occur prior to taking either of these drugs. Bilirubin mass conc 0.2 mg/dL Low 0.3 - 1. 2 mg/dL [facility] Calcium mass conc 9.0 mg/dL Invalid Interpretation Code 8.4 - 10.2 mg/dL [facility] Chloride molar conc 113 mmol/L High 98 - 108 mmol/L [facility] CO2 molar conc 17 mmol/L Low 21 - 32 mmol/L [facility] Creatinine mass conc 1.36 mg/dL High 0.8 - 1 .3 mg/dL [facility] GFR/1.73 sq M predicted among blacks MDRD vol rate/area (S/P/Bld) mL/min/{1.73_m2} Invalid Interpretation Code ml/min/1.73s q.m [facility] Comment on above: GFR Calc GFR/1.73 sq M predicted among non-blacks MDRD vol rate/area (S/P/Bld) 52 mL/min/{1.73_m2} Low >60 [facility] Comment on above: Non- GFR Calc [...] Invalid Interpretation Code 70 - 99 mg/dL [facility] Comment on above: This test result alfredo ht be falsely depressed or falsely elevated on samples drawn from patients taking Sulfasalazine and Sulfapyridine. Venipuncture should occur prior to taking either of these drugs. Interpretation and review of laboratory results Abnormal Invalid Interpretation Code [facility] Potassium molar conc 4.4 mmol/L Invalid Interpretation Code 3.5 - 5.1 mmol/L [facility] Protein mass conc 7.7 g/dL Invalid Interpretation Code 6 - 8 g/dL [facility] Sodium molar conc 141 mmol/L Invalid Interpretation Code 135 - 145 mmol/L [facility] Urea nitrogen mass conc 28 mg/dL High 8 - 25 mg/dL [facility] Ferritinon 08-17-2017 Ferritin [Mass/volume] in Serum or Plasma 87 ng/mL Invalid Interpretation Code 30 - 400 ng/mL [facility] Reticulocyteon 08-17-2017 Reticulocytes 1.44 % Invalid Interpretation Code 0.5 - 1.7 % [facility] Vitamin B12 and Folateson Cobalamin (Vitamin B12) mass conc 825 pg/mL Invalid Interpretation Code 193 - 986 pg/mL [facility] Folate >20.0 High 3.1 - 17.5 ng/mL [facility] Vital Signs Date Time Vital Sign Value Performing Clinician Facility 04-10-2025 17:27-0400 Body temperature 98 [degF] Dr. Phyllis Mae MD Work Phone: [facility] 04-10-2025 17:27-0400 Diastolic blood pressure 66 mm[Hg] Dr. Phyllis Mae MD Work Phone: [facility] 04-10-2025 17:27-0400 Heart rate 62 /min Dr. Phyllis Mae MD Work Phone: [facility] 04-10-2025 17:27-0400 Respiratory rate 17 /min Dr. Phyllis Mae MD Work Phone: [facility] 04-10-2025 17:27-0400 SaO2% (BldA) [Mass fraction] 98 % Dr. Phyllis Mae MD Work Phone: [facility] 04-10-2025 17:27-0400 Systolic blood pressure 151 mm[Hg] Dr. Phyllis Mae MD Work Phone: [facility] 04-10-2025 15:19-0400 Body mass index (BMI) [Ratio] 21.7 kg/m2 Dr. Phyllis Mae MD Work Phone: [facility] 04-10-2025 15:19-0400 Body weight 62.[address] Phyllis Mae MD Work Phone: [facility] 04-10-2025 15:18-0400 Body height 170.[address] Phyllis Mae MD Work Phone: [facility] 01-02-2025 13:34-0500 Diastolic blood pressure 50 mm[Hg] BHUMIKA Lin DPM Work Phone: [facility] 01-02-2025 13:34-0500 Heart rate 75 /min BHUMIKA Lin DPM Work Phone: [facility] 01-02-2025 13:34-0500 Systolic blood pressure 95 mm[Hg] BHUMIKA Duquemann DPM Work Phone: [facility] 01-02-2025 13:31-0500 Body height 167.6 cm BHUMIKA Lin DPM Work Phone: [facility] 01-02-2025 13:31-0500 Body mass index (BMI) [Ratio] 22.92 kg/m2 BHUMIKA Lin DPM Work Phone: [facility] 01-02-2025 13:31-0500 Body temperature 97 [degF] BHUMIKA Duquemann DPM Work Phone: [facility] 01-02-2025 13:31-0500 Body weight 64.41 kg BHUMIKA Lin DPM Work Phone: [facility] 01-02-2025 13:31-0500 Respiratory rate 16 /min BHUMIKA Duquemann DPM Work Phone: [facility] 01-02-2025 13:31-0500 SaO2% (BldA) [Mass fraction] 97 % BHUMIKA Lin DPM Work Phone: [facility] 12-05-2024 12:45-0500 Body height 167.6 cm Phyllis Mae MD Work Phone: [facility] 12-05-2024 12:45-0500 Body mass index (BMI) [Ratio] 23.05 kg/m2 Phyllis Mae MD Work Phone: [facility] 12-05-2024 12:45-0500 Body weight 64.77 kg Phyllis Mae MD Work Phone: [facility] 12-05-2024 12:45-0500 Diastolic blood pressure 58 mm[Hg] Phyllis Mae MD Work Phone: [facility] 12-05-2024 12:45-0500 Heart rate 67 /min Phyllis Mae MD Work Phone: [facility] 12-05-2024 12:45-0500 SaO2% (BldA) [Mass fraction] 94 % Phyllis Mae MD Work Phone: [facility] 12-05-2024 12:45-0500 Systolic blood pressure 87 mm[Hg] Phyllis Mae MD Work Phone: [facility] 11-05-2024 13:04-0500 Body height 167.6 cm Phyllis Mae MD Work Phone: [facility] 11-05-2024 13:04-0500 Body mass index (BMI) [Ratio] 23.27 kg/m2 Phyllis Mae MD Work Phone: [facility] 11-05-2024 13:04-0500 Body weight 65.41 kg Phyllis Mae MD Work Phone: [facility] 11-05-2024 13:04-0500 Diastolic blood pressure 74 mm[Hg] Phyllis Mae MD Work Phone: [facility] 11-05-2024 13:04-0500 Heart rate 74 /min Phyllis Mae MD Work Phone: [facility] 11-05-2024 13:04-0500 SaO2% (BldA) [Mass fraction] 93 % Phyllis Mae MD Work Phone: [facility] 11-05-2024 13:04-0500 Systolic blood pressure 136 mm[Hg] Phyllis Mae MD Work Phone: [facility] 10-03-2024 14:48-0500 Diastolic blood pressure 79 mm[Hg] WVito Maiske III, DO Work Phone: [facility] 10-03-2024 14:48-0500 Heart rate 60 /min WVito Tiptone III, DO Work Phone: [facility] 10-03-2024 14:48-0500 Systolic blood pressure 155 mm[Hg] WVito Maiske III, DO Work Phone: [facility] 10-03-2024 14:42-0500 Body height 167.6 cm Cameron Tiptone III, DO Work Phone: [facility] 10-03-2024 14:42-0500 Body mass index (BMI) [Ratio] 22.92 kg/m2 WVito Tiptone III, DO Work Phone: [facility] 10-03-2024 14:42-0500 Body weight 64.41 kg KikoVito Felice III, DO Work Phone: [facility] 10-03-2024 13:14-0500 Body temperature 98.71 [degF] CJ Hassmann DPM Work Phone: [facility] 10-03-2024 13:14-0500 Diastolic blood pressure 72 mm[Hg] CJ Hassmann DPM Work Phone: [facility] 10-03-2024 13:14-0500 Heart rate 63 /min CJ Hassmann DPM Work Phone: [facility] 10-03-2024 13:14-0500 Systolic blood pressure 115 mm[Hg] CJ Hassmann DPM Work Phone: [facility] 09-09-2024 15:18-0500 Body height 167.6 cm Aquiles Bay MD Work Phone: [facility] 09-09-2024 15:18-0500 Body mass index (BMI) [Ratio] 22.92 kg/m2 Aquiles Bay MD Work Phone: [facility] 09-09-2024 15:18-0500 Body weight 64.41 kg Aquiles Bay MD Work Phone: [facility] 09-09-2024 15:18-0500 Diastolic blood pressure 69 mm[Hg] Aquiles Bay MD Work Phone: [facility] 09-09-2024 15:18-0500 Heart rate 59 /min Aquiles Bay MD Work Phone: [facility] 09-09-2024 15:18-0500 SaO2% (BldA) [Mass fraction] 96 % Aquiles Bay MD Work Phone: [facility] 09-09-2024 15:18-0500 Systolic blood pressure 129 mm[Hg] Aquiles Bay MD Work Phone: [facility] 09-09-2024 13:51-0500 Body mass index (BMI) [Ratio] 22.92 kg/m2 Fior Forbes CNP Work Phone: [facility] 09-09-2024 13:51-0500 Body weight 64.41 kg Fior Forbes CNP Work Phone: [facility] 09-09-2024 13:51-0500 Diastolic blood pressure 69 mm[Hg] Fior Forbes CNP Work Phone: [facility] 09-09-2024 13:51-0500 Heart rate 59 /min Fior Forbes CNP Work Phone: [facility] 09-09-2024 13:51-0500 Systolic blood pressure 129 mm[Hg] Fior Forbes CNP Work Phone: [facility] 07-25-2024 12:52-0400 Body height 167.6 cm Phyllis Mae MD Work Phone: [facility] 07-25-2024 12:52-0400 Body mass index (BMI) [Ratio] 23.73 kg/m2 Phyllis Mae MD Work Phone: [facility] 07-25-2024 12:52-0400 Body weight 66.68 kg Phyllis Mae MD Work Phone: [facility] 07-25-2024 12:52-0400 Diastolic blood pressure 69 mm[Hg] Phyllis Mae MD Work Phone: [facility] 07-25-2024 12:52-0400 Heart rate 82 /min Phyllis Mae MD Work Phone: [facility] 07-25-2024 12:52-0400 Systolic blood pressure 105 mm[Hg] Phyllis Mae MD Work Phone: [facility] 06-27-2024 14:08-0400 Body temperature 98.4 [degF] BHUMIKA Lin DPM Work Phone: [facility] 06-27-2024 14:08-0400 Diastolic blood pressure 59 mm[Hg] CJ Hassmann DPM Work Phone: [facility] 06-27-2024 14:08-0400 Heart rate 71 /min CJ Hassmann DPM Work Phone: [facility] 06-27-2024 14:08-0400 SaO2% (BldA) [Mass fraction] 94 % CJ Hassmann DPM Work Phone: [facility] 06-27-2024 14:08-0400 Systolic blood pressure 96 mm[Hg] CJ Hassmann DPM Work Phone: [facility] 05-14-2024 10:25-0400 Body temperature 98.49 [degF] CJ Hassmann DPM Work Phone: [facility] 05-14-2024 10:25-0400 Diastolic blood pressure 71 mm[Hg] CJ Hassmann DPM Work Phone: [facility] 05-14-2024 10:25-0400 Heart rate 93 /min CJ Hassmann DPM Work Phone: [facility] 05-14-2024 10:25-0400 SaO2% (BldA) [Mass fraction] 92 % CJ Hassmann DPM Work Phone: [facility] 05-14-2024 10:25-0400 Systolic blood pressure 108 mm[Hg] CJ Hassmann DPM Work Phone: [facility] 05-07-2024 14:32-0400 Body mass index (BMI) [Ratio] 23.86 kg/m2 David Waters [employer] Work Phone: [facility] 05-07-2024 14:32-0400 Body weight 67.04 kg David Waters [employer] Work Phone: [facility] 05-07-2024 14:32-0400 Diastolic blood pressure 71 mm[Hg] David Waters [employer] Work Phone: [facility] 05-07-2024 14:32-0400 Heart rate 78 /min David Waters [employer] Work Phone: [facility] 05-07-2024 14:32-0400 SaO2% (BldA) [Mass fraction] 94 % David Waters [employer] Work Phone: [facility] 05-07-2024 14:32-0400 Systolic blood pressure 121 mm[Hg] David Waters [employer] Work Phone: [facility] 03-26-2024 13:31-0400 Body temperature 98.4 [degF] CJ Hassmann DPM Work Phone: [facility] 03-26-2024 13:31-0400 Diastolic blood pressure 73 mm[Hg] CJ Hassmann DPM Work Phone: [facility] 03-26-2024 13:31-0400 Heart rate 68 /min CJ Hassmann DPM Work Phone: [facility] 03-26-2024 13:31-0400 SaO2% (BldA) [Mass fraction] 94 % CJ Hassmann DPM Work Phone: [facility] 03-26-2024 13:31-0400 Systolic blood pressure 110 mm[Hg] CJ Hassmann DPM Work Phone: [facility] 02-27-2024 13:37-0400 Body height 167.6 cm Phyllis Mae MD Work Phone: [facility] 02-27-2024 13:37-0400 Body mass index (BMI) [Ratio] 23.57 kg/m2 Phyllis Mae MD Work Phone: [facility] 02-27-2024 13:37-0400 Body weight 66.22 kg Phyllis Mae MD Work Phone: [facility] 02-27-2024 13:37-0400 Diastolic blood pressure 51 mm[Hg] Phyllis Mae MD Work Phone: [facility] 02-27-2024 13:37-0400 Heart rate 70 /min Phyllis Mae MD Work Phone: [facility] 02-27-2024 13:37-0400 Systolic blood pressure 93 mm[Hg] Phyllis Mae MD Work Phone: [facility] 02-22-2024 12:44-0400 Body height 167.6 cm Scott Lambert PA-C Work Phone: [facility] 02-22-2024 12:44-0400 Body mass index (BMI) [Ratio] 22.76 kg/m2 Scott Lambert PA-C Work Phone: [facility] 02-22-2024 12:44-0400 Body temperature 98.01 [degF] Scott Lambert PA-C Work Phone: [facility] 02-22-2024 12:44-0400 Body weight 63.96 kg Scott Lambert PA-C Work Phone: [facility] 02-22-2024 12:44-0400 Diastolic blood pressure 44 mm[Hg] Scott Lambert PA-C Work Phone: [facility] 02-22-2024 12:44-0400 Heart rate 80 /min Scott Lambert PA-C Work Phone: [facility] 02-22-2024 12:44-0400 Respiratory rate 19 /min Scott Lambert PA-C Work Phone: [facility] 02-22-2024 12:44-0400 SaO2% (BldA) [Mass fraction] 96 % Scott Lambert PA-C Work Phone: [facility] 02-22-2024 12:44-0400 Systolic blood pressure 65 mm[Hg] Scott Lambert PA-C Work Phone: [facility] 12-19-2023 14:02-0500 Body temperature 98.4 [degF] BHUMIKA Lin DPM Work Phone: [facility] 12-19-2023 14:02-0500 Diastolic blood pressure 61 mm[Hg] BHUMIKA Lin DPM Work Phone: [facility] 12-19-2023 14:02-0500 Heart rate 79 /min CJ Riley DPM Work Phone: [facility] 12-19-2023 14:02-0500 Systolic blood pressure 105 mm[Hg] BHUMIKA Riley DPM Work Phone: [facility] 12-14-2023 12:52-0500 Body height 167.6 cm Phyllis Mae MD Work Phone: [facility] 12-14-2023 12:52-0500 Body mass index (BMI) [Ratio] 22.76 kg/m2 Phyllis Mae MD Work Phone: [facility] 12-14-2023 12:52-0500 Body weight 63.96 kg Phyllis Mae MD Work Phone: [facility] 12-14-2023 12:52-0500 Diastolic blood pressure 67 mm[Hg] Phyllis Mae MD Work Phone: [facility] 12-14-2023 12:52-0500 Heart rate 62 /min Phyllis Mae MD Work Phone: [facility] 12-14-2023 12:52-0500 Systolic blood pressure 112 mm[Hg] Phyllis Mae MD Work Phone: [facility] 10-18-2023 12:56-0500 Diastolic blood pressure 83 mm[Hg] Fior Forbes CNP Work Phone: [facility] 10-18-2023 12:56-0500 Heart rate 88 /min Fior Forbes CNP Work Phone: [facility] 10-18-2023 12:56-0500 Systolic blood pressure 135 mm[Hg] Fior Forbes CNP Work Phone: [facility] 10-18-2023 12:49-0500 Body mass index (BMI) [Ratio] 23.98 kg/m2 Fior Forbes [employer] Work Phone: [facility] 10-18-2023 12:49-0500 Body weight 67.41 kg Fior Forbes [employer] Work Phone: [facility] 10-11-2023 12:52-0500 Body height 167.6 cm Deshaun Rodrigues MD Work Phone: [facility] 10-11-2023 12:52-0500 Body mass index (BMI) [Ratio] 23.89 kg/m2 Deshaun Rodrigues MD Work Phone: [facility] 10-11-2023 12:52-0500 Body weight 67.13 kg Deshaun Rodrigues MD Work Phone: [facility] 10-11-2023 12:52-0500 Diastolic blood pressure 70 mm[Hg] Deshaun Rodrigues MD Work Phone: [facility] 10-11-2023 12:52-0500 Heart rate 75 /min Deshaun Rodrigues MD Work Phone: [facility] 10-11-2023 12:52-0500 Respiratory rate 16 /min Deshaun Rodrigues MD Work Phone: [facility] 10-11-2023 12:52-0500 SaO2% (BldA) [Mass fraction] 97 % Deshaun Rodrigues MD Work Phone: [facility] 10-11-2023 12:52-0500 Systolic blood pressure 105 mm[Hg] Deshaun Rodrigues MD Work Phone: [facility] 08-22-2023 13:22-0400 Body height 167.6 cm Phyllis Mae MD Work Phone: [facility] 08-22-2023 13:22-0400 Body mass index (BMI) [Ratio] 24.21 kg/m2 Phyllis Mae MD Work Phone: [facility] 08-22-2023 13:22-0400 Body weight 68.04 kg Phyllis Mae MD Work Phone: [facility] 08-22-2023 13:22-0400 Diastolic blood pressure 62 mm[Hg] Phyllis Mae MD Work Phone: [facility] 08-22-2023 13:22-0400 Heart rate 67 /min Phyllis Mae MD Work Phone: [facility] 08-22-2023 13:22-0400 SaO2% (BldA) [Mass fraction] 92 % Phyllis Mae MD Work Phone: [facility] 08-22-2023 13:22-0400 Systolic blood pressure 114 mm[Hg] Phyllis Mae MD Work Phone: [facility] 07-12-2023 12:49-0400 Body height 167.6 cm Arianna Ream [employer] Work Phone: [facility] 07-12-2023 12:49-0400 Body mass index (BMI) [Ratio] 24.37 kg/m2 Arianna Ream [employer] Work Phone: [facility] 07-12-2023 12:49-0400 Body weight 68.49 kg Arianna Ream [employer] Work Phone: [facility] 07-12-2023 12:49-0400 Diastolic blood pressure 65 mm[Hg] Arianna Ream [employer] Work Phone: [facility] 07-12-2023 12:49-0400 Heart rate 70 /min Arianna Ream [employer] Work Phone: [facility] 07-12-2023 12:49-0400 SaO2% (BldA) [Mass fraction] 95 % Arianna Ream [employer] Work Phone: [facility] 07-12-2023 12:49-0400 Systolic blood pressure 119 mm[Hg] Arianna Ream [employer] Work Phone: [facility] 04-05-2023 14:10-0400 Body height 167.6 cm Deshaun Rodrigues MD Work Phone: [facility] 06-07-2023 14:10-0400 Body mass index (BMI) [Ratio] 25.82 kg/m2 Deshaun Rodrigues MD Work Phone: [facility] 04-05-2023 14:10-0400 Body weight 72.58 kg Deshaun Rodrigues MD Work Phone: [facility] 04-05-2023 14:10-0400 Diastolic blood pressure 58 mm[Hg] Deshaun Rodrigues MD Work Phone: [facility] 04-05-2023 14:10-0400 Heart rate 62 /min Deshaun Rodrigues MD Work Phone: [facility] 04-05-2023 14:10-0400 Respiratory rate 16 /min Deshaun Rodrigues MD Work Phone: [facility] 04-05-2023 14:10-0400 SaO2% (BldA) [Mass fraction] 96 % Deshaun Rodrigues MD Work Phone: [facility] 04-05-2023 14:10-0400 Systolic blood pressure 101 mm[Hg] Deshaun Rodrigues MD Work Phone: [facility] 03-07-2023 13:42-0400 Body height 167.6 cm Phyllis Mae MD Work Phone: [facility] 03-07-2023 13:42-0400 Body mass index (BMI) [Ratio] 23.89 kg/m2 Phyllis Mae MD Work Phone: [facility] 03-07-2023 13:42-0400 Body weight 67.13 kg Phyllis Mae MD Work Phone: [facility] 03-07-2023 13:42-0400 Diastolic blood pressure 78 mm[Hg] Phyllis Mae MD Work Phone: [facility] 03-07-2023 13:42-0400 Heart rate 60 /min Phyllis Mae MD Work Phone: [facility] 03-07-2023 13:42-0400 Systolic blood pressure 132 mm[Hg] Phyllis Mae MD Work Phone: [facility] 11-09-2022 17:01-0500 Body height 170.1 cm Phyllis Mae Other Phone: [facility] 11-09-2022 17:01-0500 Body temperature 98.06 [degF] Phyllis Mae Other Phone: [facility] 11-09-2022 17:01-0500 Diastolic blood pressure 61 mm[Hg] Phyllis Mae Other Phone: [facility] 11-09-2022 17:01-0500 Heart rate 68 /min Phyllis Mae Other Phone: [facility] 11-09-2022 17:01-0500 Respiratory rate 23 /min Phyllis Mae Other Phone: [facility] 11-09-2022 17:01-0500 SaO2% (BldA) [Mass fraction] 96 % Phyllis Mae Other Phone: [facility] 11-09-2022 17:01-0500 Systolic blood pressure 97 mm[Hg] Phyllis Mae Other Phone: [facility] 09-20-2022 12:54-0500 Body height 167.64 cm [...] weight 68.49 kg Phyllis Mae Work Phone: [facility] Work Phone: 09-20-2022 12:54-0500 Diastolic blood pressure 76 mm[Hg] Phyllis Mae Work Phone: [facility] Work Phone: 09-20-2022 12:54-0500 Heart rate 84 /min Phyllis Mae Work Phone: [facility] Work Phone: 09-20-2022 12:54-0500 Systolic blood pressure 110 mm[Hg] Phyllis Mae Work Phone: [facility] Work Phone: 06-16-2022 12:41-0400 Diastolic blood pressure 72 mm[Hg] Deshaun Rodrigues MD Work Phone: [facility] 06-16-2022 12:41-0400 Heart rate 78 /min Deshaun Rodrigues MD Work Phone: [facility] 06-16-2022 12:41-0400 Respiratory rate 16 /min Deshaun Rodrigues MD Work Phone: [facility] 06-16-2022 12:41-0400 SaO2% (BldA) [Mass fraction] 95 % Deshaun Rodrigues MD Work Phone: [facility] 06-16-2022 12:41-0400 Systolic blood pressure 129 mm[Hg] Deshaun Rodrigues MD Work Phone: [facility] 06-10-2022 11:10-0400 Body height 170.2 cm Erica Gardner PA-C Work Phone: [facility] 06-10-2022 11:10-0400 Body mass index (BMI) [Ratio] 23.96 kg/m2 Erica Gardner PA-C Work Phone: [facility] 06-10-2022 11:10-0400 Body weight 69.4 kg Erica Kendra PA-C Work Phone: [facility] 06-10-2022 11:10-0400 Diastolic blood pressure 66 mm[Hg] Erica Kendra PA-C Work Phone: [facility] 06-10-2022 11:10-0400 Heart rate 79 /min Erica Lacey PA-C Work Phone: [facility] 06-10-2022 11:10-0400 Systolic blood pressure 116 mm[Hg] Erica Kendra PA-C Work Phone: [facility] 06-02-2022 15:31-0400 Body height 170.2 cm Aquiles Bay MD Work Phone: [facility] 06-02-2022 15:31-0400 Body mass index (BMI) [Ratio] 24.28 kg/m2 Aquiles Bay MD Work Phone: [facility] 06-02-2022 15:31-0400 Body weight 70.31 kg Aqu[place] MD Work Phone: [facility] 06-02-2022 15:31-0400 Diastolic blood pressure 72 mm[Hg] Aquiles Bay MD Work Phone: [facility] 06-02-2022 15:31-0400 Heart rate 85 /min Aqu[place] Bay MD Work Phone: [facility] 06-02-2022 15:31-0400 SaO2% (BldA) [Mass fraction] 93 % Aqu[place] MD Work Phone: [facility] 06-02-2022 15:31-0400 Systolic blood pressure 122 mm[Hg] Aquiles [place] MD Work Phone: [facility] 03-29-2022 11:38-0400 Body height 167.64 cm Phyllis Mae Work Phone: [facility] Work Phone: 03-29-2022 11:38-0400 Body mass index (BMI) [Ratio] 24.37 kg/m2 Phyllis Mae Work Phone: [facility] Work Phone: 03-29-2022 11:38-0400 Body surface area Derived from formula 1.77 m2 Phyllis Mae Work Phone: [facility] Work Phone: 03-29-2022 11:38-0400 Body weight 68.49 kg Phyllisallie Mae Work Phone: [facility] Work Phone: 03-29-2022 11:38-0400 Diastolic blood pressure 74 mm[Hg] Phyllisallie Mae Work Phone: [facility] Work Phone: 03-29-2022 11:38-0400 Heart rate 79 /min Phyllisallie Mae Work Phone: [facility] Work Phone: 03-29-2022 11:38-0400 SaO2% (BldA) [Mass fraction] 97 % Phyllisallie Mae Work Phone: [facility] Work Phone: 03-29-2022 11:38-0400 Systolic blood pressure 108 mm[Hg] Phyllis Mae Work Phone: [facility] Work Phone: 03-01-2022 12:58-0400 Body height 167.64 cm Phyllis Mae Work Phone: [facility] Work Phone: 03-01-2022 12:58-0400 Body mass index (BMI) [Ratio] 24.29 kg/m2 Phyllis Mae Work Phone: [facility] Work Phone: 03-01-2022 12:58-0400 Body surface area Derived from formula 1.77 m2 Phyllis Zarrabi Work Phone: [facility] Work Phone: 03-01-2022 12:58-0400 Body weight 68.26 kg Phyllis Asifrrabi Work Phone: [facility] Work Phone: 03-01-2022 12:58-0400 Diastolic blood pressure 80 mm[Hg] Phyllis Asifrrabi Work Phone: [facility] Work Phone: 03-01-2022 12:58-0400 Heart rate 91 /min Phyllis Taverasabi Work Phone: [facility] Work Phone: 03-01-2022 12:58-0400 Systolic blood pressure 130 mm[Hg] Phyllis Asifrrabi Work Phone: [facility] Work Phone: 01-10-2022 11:22-0400 Body height 170.2 cm Santana Kleinmann PA-C Work Phone: [facility] 01-10-2022 11:22-0400 Body mass index (BMI) [Ratio] 23.18 kg/m2 Santana Kleinmann PA-C Work Phone: [facility] 01-10-2022 11:22-0400 Body weight 67.13 kg Santana Kleinmann PA-C Work Phone: [facility] 01-10-2022 11:22-0400 Diastolic blood pressure 78 mm[Hg] Santana Zackarymann PA-C Work Phone: [facility] 01-10-2022 11:22-0400 Heart rate 81 /min Santana Zackarymann PA-C Work Phone: [facility] 01-10-2022 11:22-0400 Systolic blood pressure 123 mm[Hg] Santana Kleinmann PA-C Work Phone: [facility] 01-04-2022 13:46-0500 Body height 167.64 cm Phyllis Mae Work Phone: [facility] Work Phone: 01-04-2022 13:46-0500 Body mass index (BMI) [Ratio] 23.73 kg/m2 Phyllis Taverasabi Work Phone: [facility] Work Phone: 01-04-2022 13:46-0500 Body surface area Derived from formula 1.75 m2 Phyllis Taverasabi Work Phone: [facility] Work Phone: 01-04-2022 13:46-0500 Body weight 66.68 kg Phyllis TaverasUnified Work Phone: [facility] Work Phone: 01-04-2022 13:46-0500 Diastolic blood pressure 92 mm[Hg] Phyllis Taverasabi Work Phone: [facility] Work Phone: 01-04-2022 13:46-0500 Heart rate 85 /min Phyllis Mae Work Phone: [facility] Work Phone: 01-04-2022 13:46-0500 Systolic blood pressure 108 mm[Hg] Phyllis Taverasabi Work Phone: [facility] Work Phone: 10-04-2021 11:35-0500 Body height 167.64 cm Phyllis Mae Work Phone: [facility] Work Phone: 10-04-2021 11:35-0500 Body mass index (BMI) [Ratio] 23.43 kg/m2 Phyllis Taverasabi Work Phone: [facility] Work Phone: 10-04-2021 11:35-0500 Body surface area Derived from formula 1.75 m2 Phyllis Zarrabi Work Phone: [facility] Work Phone: 10-04-2021 11:35-0500 Body weight 65.85 kg Phyllis Taverasabi Work Phone: [facility] Work Phone: 10-04-2021 11:35-0500 Diastolic blood pressure 60 mm[Hg] Phyllis Zarrabi Work Phone: [facility] Work Phone: 10-04-2021 11:35-0500 Systolic blood pressure 100 mm[Hg] Phyllis Zarrabi Work Phone: [facility] Work Phone: 09-14-2021 13:55-0500 Body height 167.64 cm Phyllis Taverasabi Work Phone: [facility] Work Phone: 09-14-2021 13:55-0500 Body mass index (BMI) [Ratio] 23.24 kg/m2 Phyllis Taverasabi Work Phone: [facility] Work Phone: 09-14-2021 13:55-0500 Body surface area Derived from formula 1.74 m2 Phyllis Taverasabi Work Phone: [facility] Work Phone: 09-14-2021 13:55-0500 Body weight 65.31 kg Phyllis Taverasabi Work Phone: [facility] Work Phone: 09-14-2021 13:55-0500 Diastolic blood pressure 80 mm[Hg] Phyllis Zarrabi Work Phone: [facility] Work Phone: 09-14-2021 13:55-0500 Heart rate 80 /min Phyllis Asifrrabi Work Phone: [facility] Work Phone: 09-14-2021 13:55-0500 Systolic blood pressure 128 mm[Hg] Phyllis Taverasabi Work Phone: [facility] Work Phone: 08-24-2021 11:15-0400 Body height 167.64 cm Phyllisallie Mae Work Phone: [facility] Work Phone: 08-24-2021 11:15-0400 Body mass index (BMI) [Ratio] 22.6 kg/m2 Phyllis Zarrabi Work Phone: [facility] Work Phone: 08-24-2021 11:15-0400 Body surface area Derived from formula 1.72 m2 Phyllisallie Mae Work Phone: [facility] Work Phone: 08-24-2021 11:15-0400 Body weight 63.5 kg Phyllisallie Mae Work Phone: [facility] Work Phone: 08-24-2021 11:15-0400 Diastolic blood pressure 70 mm[Hg] Phyllis Mae Work Phone: [facility] Work Phone: 08-24-2021 11:15-0400 Heart rate 94 /min Phyllisallie Mae Work Phone: [facility] Work Phone: 08-24-2021 11:15-0400 SaO2% (BldA) [Mass fraction] 97 % Phyllis Zarrabi Work Phone: [facility] Work Phone: 08-24-2021 11:15-0400 Systolic blood pressure 102 mm[Hg] Phyllis Taverasabi Work Phone: [facility] Work Phone: 08-03-2021 11:25-0400 Body height 170.2 cm David Waters [employer] Work Phone: [facility] 08-03-2021 11:25-0400 Body mass index (BMI) [Ratio] 21.77 kg/m2 David Waters [employer] Work Phone: [facility] 08-03-2021 11:25-0400 Body weight 63.05 kg David Waters [employer] Work Phone: [facility] 08-03-2021 11:25-0400 Diastolic blood pressure 81 mm[Hg] David Waters [employer] Work Phone: [facility] 08-03-2021 11:25-0400 Heart rate 97 /min David Watres [employer]ACH[employer] Work Phone: [facility] 08-03-2021 11:25-0400 Systolic blood pressure 155 mm[Hg] David Waters [employer] Work Phone: [facility] 07-12-2021 11:30-0400 Body height 167.64 cm Phyllis Taverasabi Work Phone: [facility] Work Phone: 07-12-2021 11:30-0400 Body mass index (BMI) [Ratio] 21.63 kg/m2 Phyllis Taverasabi Work Phone: [facility] Work Phone: 07-12-2021 11:30-0400 Body surface area Derived from formula 1.69 m2 Phyllis Taverasabi Work Phone: [facility] Work Phone: 07-12-2021 11:30-0400 Body weight 60.78 kg Phyllis Asifrrabi Work Phone: [facility] Work Phone: 07-12-2021 11:30-0400 Diastolic blood pressure 60 mm[Hg] Phyllis Zarrabi Work Phone: [facility] Work Phone: 07-12-2021 11:30-0400 Heart rate 76 /min Phyllis Mae Work Phone: [facility] Work Phone: 07-12-2021 11:30-0400 Systolic blood pressure 100 mm[Hg] Phyllis Mae Work Phone: [facility] Work Phone: 06-24-2021 11:16-0400 Body [...] 11:16-0400 Systolic blood pressure 83 mm[Hg] Phyllis Taverasabi Work Phone: [facility] Work Phone: 06-01-2021 14:11-0400 Body height 170.18 cm Phyllis Mae Work Phone: [facility] Work Phone: 06-01-2021 14:11-0400 Body mass index (BMI) [Ratio] 19.89 kg/m2 Phyllis Taverasabi Work Phone: [facility] Work Phone: 06-01-2021 14:11-0400 Body surface area Derived from formula 1.67 m2 Phyllis Mae Work Phone: [facility] Work Phone: 06-01-2021 14:11-0400 Body weight 57.61 kg Phyllis Mae Work Phone: [facility] Work Phone: 06-01-2021 14:11-0400 Diastolic blood pressure 70 mm[Hg] Phyllis Taverasabi Work Phone: [facility] [facility] Work Phone: 06-01-2021 14:11-0400 Heart rate 88 /min Phyllis Mae Work Phone: [facility] Work Phone: 06-01-2021 14:11-0400 Systolic blood pressure 108 mm[Hg] Phyllis Taverasabi Work Phone: [facility] Work Phone: 05-11-2021 07:47-0400 Body temperature 97.3 [degF] Lev Stockton MD Work Phone: [facility] 05-11-2021 07:47-0400 Diastolic blood pressure 66 mm[Hg] Lev Stockton MD Work Phone: [facility] 05-11-2021 07:47-0400 Heart rate 66 /min Lev Stockton MD Work Phone: [facility] 05-11-2021 07:47-0400 Respiratory rate 16 /min Lev Stockton MD Work Phone: [facility] 05-11-2021 07:47-0400 SaO2% (BldA) [Mass fraction] 95 % Lev Stockton MD Work Phone: [facility] 05-11-2021 07:47-0400 Systolic blood pressure 125 mm[Hg] Lev Stockton MD Work Phone: [facility] 05-11-2021 05:00-0400 Body mass index (BMI) [Ratio] 22.76 kg/m2 Lev Stockton MD Work Phone: [facility] 05-11-2021 05:00-0400 Body weight 66.9 kg Lev Stockton MD Work Phone: [facility] 04-27-2021 16:03-0400 Respiratory rate 0 /min Lev Stockton MD Work Phone: [facility] 04-27-2021 15:12-0400 Body height 171.5 cm Lev Stockton MD Work Phone: [facility] 03-24-2021 15:28-0400 Body height 154.1 cm Dylon Galindo MD Work Phone: [facility] 03-24-2021 15:28-0400 Body mass index (BMI) [Ratio] 25.42 kg/m2 Dylon Galindo MD Work Phone: [facility] 03-24-2021 15:28-0400 Body weight 60.33 kg Dylon Galindo MD Work Phone: [facility] 11-23-2020 13:51-0500 BP Diastolic 63 mm[Hg] [place] [facility] 11-23-2020 13:51-0500 BP Systolic 122 mm[Hg] [place] [facility] 11-23-2020 13:51-0500 Pulse (Heart Rate) 97 /min [facility] 11-23-2020 13:01-0500 BMI (Body Mass Index) 22.08 kg/m2 [place] [facility] 11-23-2020 13:0500 Body weight 63.96 kg [facility] 11-23-2020 13:0500 Height 170.2 cm [facility] 08-17-2020 12:36-0400 BMI (Body Mass Index) 22.87 kg/m2 Phyllis Mae [facility] Internal Medicine Work Phone: 08-17-2020 12:36-0400 Body weight 66.23 kg Phyllis Mae [facility] Medicine Work Phone: 08-17-2020 12:36-0400 BP Diastolic 92 mm[Hg] Phyllis Mae [facility] Work Phone: 08-17-2020 12:36-0400 BP Systolic 158 mm[Hg] Phyllis Mae [facility] Medicine Work Phone: 08-17-2020 12:36-0400 BSA (Body Surface Area) 1.77 m2 Phyllis Mae [facility] Medicine Work Phone: 08-17-2020 12:36-0400 Height 170.18 cm Phyllis Mae [facility] Medicine Work Phone: 08-17-2020 12:36-0400 Pulse (Heart Rate) 64 /min Phyllis Mae [facility] Work Phone: 08-03-2020 12:54-0400 BMI (Body Mass Index) 22.87 kg/m2 Erica Gardner [facility] 08-03-2020 12:54-0400 Body weight 66.22 kg Erica Gardner [facility] 08-03-2020 12:54-0400 BP Diastolic 78 mm[Hg] Erica Gardner [facility] 08-03-2020 12:54-0400 BP Systolic 135 mm[Hg] Erica Gardner [facility] 08-03-2020 12:54-0400 Height 170.2 cm Erica Gardner [facility] 08-03-2020 12:54-0400 Pulse (Heart Rate) 81 /min Erica Gardner [facility] 07-20-2020 13:19-0400 BMI (Body Mass Index) 22.71 kg/m2 Phyllis Mae [facility] Work Phone: 07-20-2020 13:19-0400 Body weight 65.77 kg Phyllis Mae [facility] Work Phone: 07-20-2020 13:19-0400 BP Diastolic 82 mm[Hg] Phyllis Mae [facility] Work Phone: Comment on above: Location: LUE; Position: Sitting 07-20-2020 13:19-0400 BP Systolic 144 mm[Hg] Phyllis Mae [facility] Work Phone: Comment on above: Location: LUE; Position: Sitting 07-20-2020 13:19-0400 BSA (Body Surface Area) 1.76 m2 Phyllis Mae [facility] Work Phone: 07-20-2020 13:19-0400 Height 170.18 cm Phyllis Mae [facility] Work Phone: 07-20-2020 13:19-0400 Pulse (Heart Rate) 84 /min Phyllis Mae [facility] Work Phone: 06-10-2020 19:01-0400 BP Diastolic 81 mm[Hg] Ray Scherer [facility] 06-10-2020 19:01-0400 BP Systolic 176 mm[Hg] Ray Scherer [facility] 06-10-2020 19:01-0400 Pulse (Heart Rate) 74 /min Ray Scherer [facility] 06-10-2020 19:01-0400 Pulse Oximetry 97 % Ray Scherer [facility] 06-10-2020 17:29-0400 BMI (Body Mass Index) 23.49 kg/m2 Ray Scherer [facility] 06-10-2020 17:29-0400 Body Temperature 98.4 [degF] Ray Scherer [facility] 06-10-2020 17:29-0400 Body weight 68.04 kg [facility] 06-10-2020 17:29-0400 Height 170.2 cm Ray [facility] 06-10-2020 17:29-0400 Respiratory Rate 16 /min Ray [facility] 05-19-2020 14:42-0400 BMI (Body Mass Index) 23.06 kg/m2 Phyllis Mae [facility] Work Phone: 05-19-2020 14:42-0400 Body weight 66.79 kg Phyllis Mae [facility] Work Phone: 05-19-2020 14:42-0400 BP Diastolic 80 mm[Hg] Phyllismax Mae [facility] Internal Medicine Work Phone: Comment on above: Location: LUE; Position: Sitting 05-19-2020 14:42-0400 BP Systolic 140 mm[Hg] Phyllis Mae [facility] Internal Medicine Work Phone: Comment on above: Location: LUE; Position: Sitting 05-19-2020 14:42-0400 BSA (Body Surface Area) 1.78 m2 Phyllis Mae [facility] Internal Medicine Work Phone: 05-19-2020 14:42-0400 Height 170.18 cm Phyllis Mae [facility] Internal Medicine Work Phone: 05-19-2020 14:42-0400 Pulse (Heart Rate) 82 /min Phyllis Mae [facility] Internal Medicine Work Phone: 04-28-2020 14:29-0400 Diastolic blood pressure 56 ml [place] [facility] 04-28-2020 14:29-0400 Systolic blood pressure 15 ml [place] [facility] 04-28-2020 10:25-0400 BMI (Body Mass Index) 23.47 kg/m2 [facility] [facility] 04-28-2020 10:25-0400 Body weight 68 kg [place] [facility] 04-28-2020 10:25-0400 BP Diastolic 85 mm[Hg] [place] [facility] 04-28-2020 10:25-0400 BP Systolic 155 mm[Hg] [place] [facility] 04-28-2020 10:25-0400 Height 170.2 cm [place] [facility] 04-28-2020 10:25-0400 Pulse (Heart Rate) 76 /min [facility] 04-14-2020 16:00-0400 Pulse (Heart Rate) 72 /min [facility] 04-14-2020 16:00-0400 Pulse Oximetry 93 % [facility] 04-14-2020 15:45-0400 BP Diastolic 59 mm[Hg] [facility] 04-14-2020 15:45-0400 BP Systolic 91 mm[Hg] [facility] 04-14-2020 14:43-0400 Body Temperature 98.8 [degF] [facility] 04-14-2020 13:44-0400 Respiratory Rate 18 /min [facility] 04-14-2020 13:36-0400 Respiratory rate 0 /min Ray Scherer [facility] 12-27-2019 10:54-0500 BMI (Body Mass Index) 23.49 kg/m2 David Waters [facility] 12-27-2019 10:54-0500 Body weight 68.04 kg David Waters [facility] 12-27-2019 10:54-0500 BP Diastolic 84 mm[Hg] David Waters [facility] 12-27-2019 10:54-0500 BP Systolic 171 mm[Hg] David Waters [facility] 12-27-2019 10:54-0500 Height 170.2 cm David Waters [facility] 12-27-2019 10:54-0500 Pulse (Heart Rate) 73 /min David Waters [facility] 12-04-2019 15:20-0500 BP Diastolic 84 mm[Hg] [facility] Comment on above: 12-04-2019 15:20-0500 BP Systolic 163 mm[Hg] Cameron Munguia [facility] Comment on above: 12-04-2019 14:58-0500 BMI (Body Mass Index) 23.02 kg/m2 Cameron [facility] 12-04-2019 14:58-0500 Body weight 66.68 kg Cameron [facility] 12-04-2019 14:58-0500 Height 170.2 cm Cameron [facility] 12-04-2019 14:58-0500 Pulse (Heart Rate) 56 /min Cameron Munguia [facility] 10-24-2019 15:44-0500 BP Diastolic 93 mm[Hg] [place] [facility] 10-24-2019 15:44-0500 BP Systolic 170 mm[Hg] [facility] 10-24-2019 15:42-0500 BMI (Body Mass Index) 23.02 kg/m2 [facility] 10-24-2019 15:42-0500 Body weight 66.68 kg [facility] 10-24-2019 15:42-0500 Pulse (Heart Rate) 78 /min [facility] 10-24-2019 15:42-0500 Pulse Oximetry 96 % [place] [facility] 06-05-2019 13:30-0400 BP Diastolic 80 mm[Hg] [facility] 06-05-2019 13:30-0400 BP Systolic 162 mm[Hg] [facility] 06-05-2019 13:30-0400 Pulse (Heart Rate) 60 /min [facility] 06-05-2019 13:30-0400 Pulse Oximetry 95 % [facility] 06-05-2019 13:30-0400 Respiratory Rate 19 /min [facility] 06-05-2019 12:21-0400 BMI (Body Mass Index) 22.87 kg/m2 [facility] 06-05-2019 12:21-0400 Body Temperature 97.9 [degF] [facility] 06-05-2019 12:21-0400 Body weight 66.22 kg Bret Fuentes [facility] 06-05-2019 12:0400 Height 170.2 cm Bret Fuentes [facility] 05-27-2019 12:33-0400 BP Diastolic 97 mm[Hg] Cornelia Martin [facility] 05-27-2019 12:33-0400 BP Systolic 148 mm[Hg] Cornelia Martin [facility] 05-27-2019 12:33-0400 Pulse Oximetry 99 % Cornelia Martin [facility] 05-27-2019 11:25-0400 BMI (Body Mass Index) 22.87 kg/m2 Cornelia [facility] 05-27-2019 11:25-0400 Body Temperature 98.2 [degF] Cornelia Martin [facility] 05-27-2019 11:25-0400 Body weight 66.22 kg Cornelia Martin [facility] 05-27-2019 11:250400 Height 170.2 cm Cornelia [facility] 05-27-2019 11:25-0400 Pulse (Heart Rate) 84 /min Cornelia [facility] 05-27-2019 11:25-0400 Respiratory Rate 18 /min Cornelia [facility] 05-27-2019 10:55-0400 BMI (Body Mass Index) 22.87 kg/m2 [facility] 05-27-2019 10:55-0400 Body Temperature 98.29 [degF] Guillermo [facility] 05-27-2019 10:55-0400 Body weight 66.22 kg [facility] 05-27-2019 10:55-0400 BP Diastolic 83 mm[Hg] Guillermo [facility] 05-27-2019 10:55-0400 BP Systolic 146 mm[Hg] [facility] 05-27-2019 10:55-0400 Pulse (Heart Rate) 92 /min Guillermo [facility] 05-27-2019 10:55-0400 Pulse Oximetry 84 % [facility] 04-01-2019 13:19-0400 BMI (Body Mass Index) 23.02 kg/m2 [facility] 04-01-2019 13:19-0400 BP Diastolic 92 mm[Hg] [facility] 04-01-2019 13:19-0400 BP Systolic 165 mm[Hg] [place] [facility] 04-01-2019 13:-0400 Height 170.2 cm [facility] [facility] 04-01-2019 13:19-0400 Pulse (Heart Rate) 81 /min [facility] [facility] 04-01-2019 13:19-0400 Pulse Oximetry 98 % [facility] 04-01-2019 13:-0400 Weight 66.68 kg [facility] [facility] 01-25-2019 09:09-0400 BMI (Body Mass Index) 23.65 kg/m2 Guillermo [facility] 01-25-2019 09:09-0400 Body Temperature 97.81 [degF] Guillermo [facility] 01-25-2019 09:09-0400 Body weight 68.49 kg Guillermo [facility] 01-25-2019 09:09-0400 BP Diastolic 90 mm[Hg] [facility] 01-25-2019 09:09-0400 BP Systolic 183 mm[Hg] Guillermo [facility] 01-25-2019 09:09-0400 Height 170.2 cm [facility] 01-25-2019 09:09-0400 Pulse (Heart Rate) 83 /min Guillermo [facility] 01-22-2019 13:26-0400 BMI (Body Mass Index) 23.15 kg/m2 [facility] 01-22-2019 13:26-0400 BP Diastolic 60 mm[Hg] [facility] 01-22-2019 13:26-0400 BP Systolic 140 mm[Hg] [facility] 01-22-2019 13:26-0400 Pulse (Heart Rate) 92 /min [facility] 01-22-2019 13:26-0400 Pulse Oximetry 92 % [facility] 01-22-2019 13:26-0400 Weight 67.04 kg [facility] 11-28-2018 12:53-0500 BP Diastolic 79 mm[Hg] Cameron Munguia [facility] 11-28-2018 12:53-0500 BP Systolic 121 mm[Hg] Cameron Munguia [facility] 11-28-2018 12:50-0500 BMI (Body Mass Index) 23.34 kg/m2 Cameron [facility] 11-28-2018 12:50-0500 Body weight 67.59 kg [facility] 11-28-2018 12:50-0500 Height 170.2 cm Cameron [facility] 11-28-2018 12:50-0500 Pulse (Heart Rate) 83 /min Cameron Munguia [facility] 09-28-2018 09:25-0500 BMI (Body Mass Index) 23.71 kg/m2 Guillermo [facility] 09-28-2018 09:25-0500 Body Temperature 97.81 [degF] Guillermo [facility] 09-28-2018 09:25-0500 BP Diastolic 76 mm[Hg] Guillermo [facility] 09-28-2018 09:25-0500 BP Systolic 169 mm[Hg] Guillermo [facility] 09-28-2018 09:25-0500 Height 170.2 cm Guillermo [facility] 09-28-2018 09:25-0500 Pulse (Heart Rate) 77 /min Guillermo [facility] 09-28-2018 09:25-0500 Pulse Oximetry 90 % Guillermo [facility] 09-28-2018 09:25-0500 Weight 68.67 kg [facility] 01-04-2018 10:46-0500 BMI (Body Mass Index) 23.87 kg/m2 [facility] 01-04-2018 10:46-0500 Body Temperature 97.5 [degF] Guillermo [facility] 01-04-2018 10:46-0500 BP Diastolic 94 mm[Hg] Guillermo [facility] 01-04-2018 10:46-0500 BP Systolic 154 mm[Hg] Guillermo [facility] 01-04-2018 10:46-0500 Height 172.7 cm [facility] 01-04-2018 10:46-0500 Pulse (Heart Rate) 85 /min Guillermo [facility] 01-04-2018 10:46-0500 Pulse Oximetry 93 % Guillermo [facility] 01-04-2018 10:46-0500 Weight 71.22 kg Guillermo [facility] 11-22-2017 10:15-0500 BMI (Body Mass Index) 24.37 kg/m2 Tristen Menjivar [facility] Work Phone: 11-22-2017 10:15-0500 BP Diastolic 76 mm[Hg] Tristen Morganhta [facility] Work Phone: 11-22-2017 10:15-0500 BP Systolic 137 mm[Hg] Tristenrachid Morganhta [facility] Work Phone: 11-22-2017 10:15-0500 Height 167.6 cm Tristen Morganhta [facility] Work Phone: 11-22-2017 10:15-0500 Pulse (Heart Rate) 63 /min Tristen Menjivar [facility] Work Phone: 11-22-2017 10:15-0500 Pulse Oximetry 97 % Tristen Menjivar [facility] Work Phone: 11-22-2017 10:15-0500 Weight 68.49 kg Tristen Menjivar [facility] Work Phone: 10-16-2017 15:35-0500 BMI (Body Mass Index) 24.21 kg/m2 [place] [facility] Work Phone: 10-16-2017 15:35-0500 BP Diastolic 74 mm[Hg] [place] [facility] Work Phone: 10-16-2017 15:35-0500 BP Systolic 135 mm[Hg] [place] [facility] Work Phone: 10-16-2017 15:35-0500 Height 167.6 [address] [place] [facility] Work Phone: 10-16-2017 15:35-0500 Pulse (Heart Rate) 65 /min [place] [facility] Work Phone: 10-16-2017 15:35-0500 Pulse Oximetry 94 % [place] [facility] Work Phone: 10-16-2017 15:35-0500 Weight 68.04 kg [place] [facility] Work Phone: 09-07-2017 11:18-0500 BMI (Body Mass Index) 25.29 kg/m2 Guillermo [facility] Work Phone: 09-07-2017 11:18-0500 BP Diastolic 85 mm[Hg] Guillermo [facility] Work Phone: 09-07-2017 11:18-0500 BP Systolic 117 mm[Hg] Guillermo Westn[facility] Work Phone: 09-07-2017 11:18-0500 Height 167.6 cm Guillermo [facility] Work Phone: 09-07-2017 11:18-0500 Pulse (Heart Rate) 100 /min Guillermo [facility] Work Phone: 09-07-2017 11:18-0500 Weight 71.08 kg Guillermo [facility] Work Phone: 08-17-2017 09:01-0400 BMI (Body Mass Index) 26.05 kg/m2 Guillermo [facility] Work Phone: 08-17-2017 09:01-0400 BP Diastolic 67 mm[Hg] Guillermo [facility] Work Phone: 08-17-2017 09:01-0400 BP Systolic 118 mm[Hg] Guillermo [facility] Work Phone: 08-17-2017 09:01-0400 Height 167.6 cm Guillermo [facility] Work Phone: 08-17-2017 09:01-0400 Pulse (Heart Rate) 68 /min Guillermo [facility] Work Phone: 08-17-2017 09:01-0400 Weight 73.21 kg Guillermo [facility] Work Phone: Encounters Encounter Date Encounter Type Care Provider Facility Start: 08-26-2025 ambulatory Sharmila LOTT Facili ty:[facility] Start: 08-22-2025 End: 08-22-2025 Emergency department patient visit Rayo Fitch Facility:[facility] Start: 08-06-2025 End: 08-06-2025 ambulatory Manohar Pablo Facility:[facility] Start: 06-11-2025 ambulatory Manohar LOTT Facil ity:[facility] Start: 06-11-2025 Registered Referred Manohar Pablo MD -[facility] Work Phone: Start: 05-30-2025 ambulatory Sharmila LOTT Facili ty:[facility] Start: 05-30-[address] Sharmila Arteaga MD -[facility] Work Phone: Start: 05-28-2025 ambulatory Sharmila LOTT Facili ty:[facility] Start: 05-28-[address] Sharmila Arteaga MD -[facility] Work Phone: Start: 04-22-2025 End: 04-22-[address] Phyllis Mae MD Work Phone: -[facility] Start: 04-22-2025 End: 04-22-2025 Departed Referred Manohar Pablo MD -[facility] Work Phone: Start: 04-22-2025 End: 04-22-2025 ambulatory Manohar LOTT Facility:[facility] Start: 04-17-2025 End: 04-17-[address] Deshaun Salcedo MD -[facility] Work Phone: Start: 04-17-2025 End: 04-17-[address] Phyllis Mae MD Work Phone: [facility] Work Phone: Start: 04-16-2025 ambulatory [facility] Facilit y:[facility] Start: 04-16-2025 Registered Referred Manohar Pablo MD -[facility] Work Phone: Start: 04-10-2025 End: 04-10-2025 Emergency department patient visit Dr. Phyllis Mae MD Work Phone: -Emergency Department Work Phone: Start: 02-23-2025 ambulatory Sharmila LOTT Facili ty:[facility] Start: 02-23-[address] Sharmila Arteaga MD -[facility] Work Phone: Start: 02-19-2025 End: 02-19-2025 Departed Referred Manohar Pablo MD -[facility] Work Phone: Start: 02-19-2025 End: 02-19-2025 ambulatory [facility] Facility:[facility] Start: 01-27-2025 End: 01-27-[address] Phyllis Mae MD Work Phone: [facility] Work Phone: Start: 01-27-2025 End: 01-27-[address] Sharmila Arteaga MD -[facility] Work Phone: Start: 01-27-2025 End: 01-27-2025 ambulatory Sharmila LOTT Facility:[facility] Start: 01-02-2025 End: 01-02-2025 ambulatory [facility] Start: 01-02-2025 End: 01-02-2025 Office outpatient visit 15 minutes BHUMIKA Lin DPM Work Phone: [facility] Comment on above: Onychodystrophy (Linda juanis Dx); Onychomycosis; PVD (peripheral vascular disease); Diabetic foot (HCC); Xerosis of skin Start: 12-24-2024 End: 12-24-[address] Phyllis Mae MD Work Phone: [facility] Work Phone: Start: 12-24-2024 End: 12-24-[address] Phyllis Mae MD Work Phone: -Laboratory Work Phone: Start: 12-24-2024 End: 12-24-2024 ambulatory Poly COLLINSNEELAM Facility:[facility] Start: 12-05-2024 End: 12-05-2024 Office outpatient visit 25 minutes Phyllis Mae MD Work Phone: [facility] Internal Medicine Comment on above: Fatigue, unspecified [...] encounter status Phyllis Mae MD Work Phone: [facility] Work Phone: Start: 12-05-2024 End: 12-05-2024 ambulatory [facility] Start: 12-02-2024 End: 12-02-2024 Patient encounter procedure PHYLLIS MAE -Laboratory Work Phone: Start: 12-02-2024 End: 12-02-[facility] Start: 11-25-2024 End: 11-25-2024 Refill Fior Forbes CNP Work Phone: [facility] Endocrinology Jud Comment on above: 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, with long-term current use of insulin (HCC) (Primary Dx) Start: 11-21-2024 End: 11-21-2024 Documentation procedure Fior Forbes CNP Work Phone: [facility] Start: 11-12-2024 End: 11-12-2024 Refill Fior Forbes CNP Work Phone: [facility] Start: 11-07-2024 End: 11-07-2024 Refill Fior Forbes CNP Work Phone: [facility] Start: 11-05-2024 End: 11-05-2024 Assay of hemosiderin, quant Phyllis Mae MD Work Phone: [facility] Work Phone: Start: 11-05-2024 End: 11-05-2024 Patient encounter procedure Phyllis Mae MD Work Phone: [facility] Internal Medicine Comment on above: Routine general medi sheldon examination at health care facility (Primary Dx); Chronic obstructive pulmonary disease, unspecified COPD type (Multi); Essential tremor; Type 2 diabetes mellitus with hyperglycemia, with long-term current use of insulin; Hypertension associated with type 2 diabetes mellitus (Multi); Mixed hyperlipidemia; Thrombocytopenia ([facility]-HCC); Folate deficiency; CRF (chronic renal failure), stage 3 (moderate) (Multi); Chronic fatigue; Anemia, unspecified type; Weakness of both arms; Weakness of both legs; Smoker Start: 11-05-2024 End: 11-05-2024 Encounter for general adult medical examination without abnormal findings PHYLLIS BELTRAN [facility] Start: 11-05-2024 End: 11-05-2024 Refill Fior Forbes CNP Work Phone: [facility] Comment on above: 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, with long-term current use of insulin (HCC) (Primary Dx) Start: 10-07-2024 End: 10-08-2024 Refill David Waters CNP Work Phone: [facility] Comment on above: 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, with long-term current use of insulin (HCC) Start: 10-03-2024 End: 10-03-2024 Office outpatient visit 25 minutes Cameron Munguia DO Work Phone: [facility] Comment on above: History of carotid e ndarterectomy (Primary Dx); Stenosis of left carotid artery; Neurogenic claudication; PAD (peripheral artery disease) (HCC); Type 2 diabetes mellitus with stage 3b chronic kidney disease, with long-term current use of insulin (HCC); Tobacco use Start: 10-03-2024 End: 10-03-2024 Office outpatient visit 10 minutes BHUMIKA Lin DPM Work Phone: [facility] Comment on above: Onychodystrophy (Linda juanis Dx); Onychomycosis; PVD (peripheral vascular disease) (HCC); Tobacco use; Diabetic foot (HCC); Xerosis of skin Start: 10-03-2024 End: 10-03-2024 ambulatory [facility] Start: 09-16-2024 End: 09-16-2024 ambulatory [facility] Start: 09-10-2024 End: 09-11-2024 Refill Fior Forbes CNP Work Phone: [facility] Comment on above: 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, with long-term current use of insulin (HCC) (Primary Dx) Start: 09-09-2024 End: 09-09-2024 Office outpatient visit 25 minutes Fior Forbes CNP Work Phone: [facility] Comment on above: 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, with long-term current use of insulin (HCC) (Primary Dx); Dyslipidemia; Essential hypertension Chest pain, unspecif ied type (Primary Dx); History of CVA (cerebrovascular accident); Essential hypertension; PVD (peripheral vascular disease) (HCC) Start: 09-09-2024 End: 09-09-2024 ambulatory [facility] Start: 09-04-2024 End: 09-04-2024 ambulatory DAVID DOW [facility] Start: 07-25-2024 End: 07-25-2024 ambulatory [facility] Start: 07-25-2024 End: 07-25-2024 Office outpatient visit 25 minutes Phyllis Mae MD Work Phone: [facility] Comment on above: Thrombocytopenia (CM S-HCC) (Primary Dx); Chronic obstructive pulmonary disease, unspecified (Multi); Megaloblastic anemia; Folate deficiency; Fatigue, unspecified type; CRF (chronic renal failure), stage 3 (moderate) (Multi); Type 2 diabetes mellitus with hyperglycemia, with long-term current use of insulin (Multi) Start: 07-09-2024 End: 07-09-2024 ambulatory [facility] Start: 06-27-2024 End: 06-27-2024 Patient encounter procedure BHUMIKA Lin DPM Work Phone: [facility] Comment on above: Onychodystrophy (Linda juanis Dx); Onychomycosis; PVD (peripheral vascular disease) (HCC); Tobacco use; Diabetic foot (HCC); Toe pain, bilateral Start: 06-27-2024 End: 07-01-2024 ambulatory [facility] Start: 05-28-2024 End: 05-28-2024 ambulatory [facility] Ambulatory Start: 05-14-2024 End: 05-18-2024 ambulatory [facility] Start: 05-14-2024 End: 05-14-2024 Office outpatient visit 25 minutes BHUMIKA Lin DPM Work Phone: [facility] Comment on above: Ingrown toenail (Linda juanis Dx); Paronychia of great toe; PVD (peripheral vascular disease) (HCC); Tobacco use; Xerosis of skin; Diabetic foot (HCC) Start: 05-07-2024 End: 05-07-2024 Office outpatient visit 25 minutes David Waters CNP Work Phone: [facility] Comment on above: 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, with long-term current use of insulin (HCC) (Primary Dx) Start: 05-07-2024 End: [facility]07[facility] Start: 04-25-2024 End: 04-25-2024 ambulatory [facility] Start: 03-26-2024 End: 03-26-2024 Office outpatient visit 15 minutes BHUMIKA Lin DPM Work Phone: [facility] Comment on above: Diabetic foot (HCC) (Primary Dx); PVD (peripheral vascular disease) (HCC); Type 2 diabetes mellitus with stage 3b chronic kidney disease, with long-term current use of insulin (HCC); Claudication of lower extremity (HCC); Tobacco use; Xerosis of skin; Onychodystrophy; Onychomycosis; Toe pain, bilateral Start: 03-26-2024 End: 03-26-2024 [facility] Start: 03-21-2024 End: 03-21-2024 [facility] Start: 03-11-2024 ambulatory [facility] Start: 03-08-2024 End: 03-12-2024 ambulatory [facility] Start: 02-29-2024 ambulatory [facility] Start: 02-27-2024 End: 02-27-2024 Assay of hemosiderin, quant Phyllis Mae MD Work Phone: [facility] Work Phone: Start: 02-27-2024 End: 02-27-2024 Patient encounter procedure Phyllis Mae MD Work Phone: [facility] Comment on above: Routine general medi sheldon examination at health care facility (Primary Dx); Superficial gastritis without hemorrhage, unspecified chronicity; Weakness of upper extremity; Weakness of both lower extremities; Recurrent falls; Neck pain; H/O: CVA (cerebrovascular accident); Essential tremor; Neurogenic claudication; Stable angina pectoris (CMS-HCC); Hypertension associated with type 2 diabetes mellitus (Multi); Encounter for vaccination; 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Multi); Hypotensive episode Start: 02-22-2024 End: 02-22-2024 Emergency department patient visit [facility] Start: 02-22-2024 End: 02-22-2024 Patient encounter procedure Scott Warren PA-C Work Phone: [facility] Comment on above: Hypotension, unspeci fied hypotension type (Primary Dx); Upper respiratory tract infection, unspecified type Start: 02-22-2024 End: 02-22-2024 ambulatory [facility] Start: 02-21-2024 Telephone encounter Fior Forbes CNP Work Phone: [facility] Comment on above: Medication Refill 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, with long-term current use of insulin (HCC) Start: 02-14-2024 Refill Fior cee STITCH BONDING MACHINE DRAWER IN Work Phone: [facility] Comment on above: 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, with long-term current use of insulin (HCC) (Primary Dx) Start: 01-04-2024 End: 01-08-2024 Refill Jing Lowe STITCH BONDING MACHINE DRAWER IN Work Phone: [facility] Start: 12-25-2023 ambulatory [facility] Start: 12-20-2023 Refill Fior cee STITCH BONDING MACHINE DRAWER IN Work Phone: [facility] Start: 12-19-2023 End: 12-19-2023 Office outpatient new 30 minutes BHUMIKA Lin DPM Work Phone: [facility] Comment on above: Diabetic foot (HCC) (Primary Dx); PVD (peripheral vascular disease) (HCC); Type 2 diabetes mellitus with stage 3b chronic kidney disease, with long-term current use of insulin (HCC); Claudication of lower extremity (HCC); Tobacco use; Xerosis of skin; Onychodystrophy; Onychomycosis; Toe pain, bilateral Start: 12-19-2023 End: 12-23-2023 Refill Susan Baptiste MD Work Phone: [facility] Start: 12-19-2023 Refill Susan Burrell MD Work Phone: [facility] Start: 12-14-2023 End: 12-14-2023 Office outpatient visit 25 minutes Phyllis Mae MD Work Phone: [facility] Comment on above: Hypertension associa [...] 25 minutes Fior Forbes CNP Work Phone: [facility] Comment on above: 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, with long-term current use of insulin (HCC) (Primary Dx); Dyslipidemia; Essential hypertension Start: 10-11-2023 End: 10-11-2023 Office outpatient visit 40 minutes Deshaun Rodrigues MD Work Phone: [facility] Comment on above: Atypical parkinsonis m (Primary Dx); Diabetic polyneuropathy associated with type 2 diabetes mellitus (HCC); Essential tremor; Mild cognitive impairment Start: 10-11-2023 End: 10-15-2023 [facility] Start: 08-22-2023 End: 08-22-2023 Office outpatient visit 25 minutes Phyllis Mae MD Work Phone: [facility] Comment on above: Type 2 diabetes silvino itus with hyperglycemic coma (CMS/HCC) (Primary Dx); Hyperlipidemia, unspecified hyperlipidemia type; Need for influenza vaccination; Chronic obstructive pulmonary disease, unspecified COPD type (CMS/HCC); H/O: CVA (cerebrovascular accident); Essential tremor; Encounter for vaccination; Hypertriglyceridemia Start: 07-12-2023 End: 07-12-2023 Office outpatient visit 15 minutes Arianna Alfaro STITCH BONDING MACHINE DRAWER IN Work Phone: [facility] Comment on above: Essential hypertensi on (Primary Dx); Tobacco use; Dyslipidemia; History of cerebrovascular accident; Chronic obstructive pulmonary disease, unspecified COPD type (HCC); Musculoskeletal chest pain; Essential tremor Start: 05-15-2023 Refill David Waters CNP Work Phone: [facility] Comment on above: 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, with long-term current use of insulin (HCC) (Primary Dx) Start: 04-05-2023 End: 04-05-2023 Office outpatient visit 40 minutes Deshaun Rodrigues MD Work Phone: [facility] Comment on above: Atypical parkinsonis m (HCC) (Primary Dx); Essential tremor; Cough syncope; Mild cognitive impairment Start: 03-26-2023 Tamy Pennington MD Work Phone: [facility] Start: 03-07-2023 End: 03-07-2023 Office outpatient visit 25 minutes Phyllis Mae MD Work Phone: [facility] Comment on above: Rib pain [...] major, in remission (CMS/HCC); Chronic stable angina ([facility]/HCC); Chronic shortness of breath; Hepatic steatosis; H/O fall; Abdominal pain, LUQ; Abdominal pain, RUQ Start: 12-28-2022 ambulatory Phyllis Yefrirrabi Facilit [id number] Start: 11-15-2022 Chart Update Phyllis Yefrijeramyab i Work Phone: [facility] Work Phone: Start: 11-10-2022 Transcribe Orders Donovan Chiang [facility] Comment on above: Non-pressure chronic ulcer of left lower leg, 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 02 Start: 11-07-2022 AUDIT Phyllismax Taverasab i Work Phone: [facility] Work Phone: Start: 09-20-2022 Office outpatient vi sit 25 minutes Phyllis Mae Work Phone: [facility] Work Phone: Start: 09-20-2022 ambulatory Phyllis Yefrirrabi Facilit [id number] Start: 09-13-2022 Refill David Waters CNP Work Phone: [facility] Start: 06-16-2022 End: 06-16-2022 Office outpatient new 60 minutes Deshaun Rodrigues MD Work Phone: [facility] Comment on above: Essential tremor (Pr imary Dx); Cough syncope Start: 06-15-2022 AUDIT Phyllis Taverasab i Work Phone: [facility] Work Phone: Start: 06-10-2022 End: 06-10-2022 Office outpatient visit 25 minutes Erica Gardner PA-C Work Phone: [facility] Comment on above: 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, with long-term current use of insulin (HCC) (Primary Dx); Essential hypertension Start: 06-02-2022 End: 06-02-2022 Office outpatient visit 25 minutes [place] MD Work Phone: [facility] Comment on above: GREEN (dyspnea on exer tion) (Primary Dx) Start: 05-18-2022 AUDIT Phyllis Ho i Work Phone: [facility] Work Phone: Start: 05-16-2022 AUDIT Phyllis Ho i Work Phone: [facility] Work Phone: Start: 05-11-2022 PTRECHECKA, Provider : Lorena Ochoa, Status: Pen, Time: 11:15 AM [facility]yllis Mae [facility] [place] Work Phone: Start: 05-10-2022 Patient encounter procedure [facility]yllis Mae [facility]: Start: 05-09-2022 Patient encounter procedure [facility]yllis Mae [facility] [place] Work Phone: Start: 05-09-[address] Phyllis Mae Fac ility:[id number] Start: 05-06-2022 PTFUADULT4, Provider : Quin Li, Status: Pen, Time: 2:00 PM Phyllis Mae Work Phone: [facility] [address] [place] Work Phone: Start: 05-06-2022 Patient encounter procedure Phyllis Zabeltran Work [facility]: [facility] [address] [place] Work Phone: Start: 05-04-2022 Patient encounter procedure Phyllis Yefribeltran Work Phone: [facility] [address] [place] Work Phone: Start: 05-04-[address] Phyllis Mae Fac ility:[id number] Start: 04-29-2022 Patient encounter procedure Phyllis Mae [facility]: [facility] [address] [place] Work Phone: Start: 04-25-2022 Patient encounter procedure Phyllis Mae [facility] [address] [place] Work Phone: Start: 04-22-[address] Phyllis Mae Fac ility:[id number] Start: 04-22-2022 Patient encounter procedure Phyllis Mae [facility]: [facility] [address] [place] Work Phone: Start: 04-18-2022 Patient encounter procedure Phyllis Mae Work Phone: [facility] [address] [place] Work Phone: Start: 04-18-[address] Phyllis Mae Fac ility:[id number] Start: 04-06-2022 Patient encounter procedure Phyllis Mae Work Phone: [facility] Work Phone: Start: 04-06-[address] Phyllis Mae Fac ility:[id number] Start: 03-29-2022 Office outpatient vi sit 25 minutes Phyllis Mae Work Phone: [facility] Work Phone: Start: 03-29-2022 ambulatory Phyllis Zarrabi Facilit [id number] Start: 03-15-2022 Patient encounter procedure Phyllis Yefrirrabi Work Phone: [facility] Work Phone: Start: 03-01-2022 Office outpatient vi sit 25 minutes Phyllis Zarrabi Work Phone: [facility] Work Phone: Start: 03-01-2022 ambulatory Phyllis Zarrabi Facilit [id number] Start: 02-16-2022 AUDIT Phyllis Zarrab i Work Phone: [facility] Work Phone: Start: 01-10-2022 End: 01-10-2022 Office outpatient visit 25 minutes Santana Orosco PA-C Work Phone: [facility] Comment on above: 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, with long-term current use of insulin (HCC) (Primary Dx) Start: 01-09-2022 Refdion Waters CNP Work Phone: [facility] Comment on above: Type 2 diabetes silvino itus without complications (HCC) Start: 01-04-2022 Office outpatient vi sit 15 minutes Phyllis Yefrirrabi Work Phone: [facility] Work Phone: Start: 01-04-2022 ambulatory Phyllis Yefrirrabi Facilit [id number] Start: 12-30-2021 AUDIT Phyllis Zarrab i Work Phone: [facility] Work Phone: Start: 12-28-2021 AUDIT Phyllis Zarrab i Work Phone: [facility] Work Phone: Start: 12-01-2021 AUDIT Phyllis Zarrab i Work Phone: [facility] Work Phone: Start: 10-18-2021 Patient encounter procedure Phyllis Taverasabi [facility] [place] Work Phone: Start: 10-12-2021 AUDIT Phyllis Asifrrab i Work Phone: [facility] Work Phone: Start: 10-04-2021 Office outpatient vi sit 25 minutes Phyllis Asifrrabi Work Phone: [facility] Work Phone: Start: 09-30-2021 Chart Update Phyllis Asifrrab i Work Phone: [facility] Work Phone: Start: 09-29-2021 Patient encounter procedure Phyllis Taverasabi [facility] [place] Work Phone: Start: 09-20-2021 Patient encounter procedure Phyllis Asifrrabi [facility]: [facility] [address] [place] Work Phone: Start: 09-17-2021 Patient encounter procedure Phyllis Asifrrabi Work Phone: [facility] [place] Work Phone: Start: 09-17-2021 PTFUADULT4, Provider : Bib Payne, Status: Giacomo, Time: 12:30 PM Phyllis Asifrrabi Work Phone: [facility] Work Phone: Start: 09-15-2021 AUDIT Phyllis Asifrrab i Work Phone: [facility] Work Phone: Start: 09-15-2021 PTFUADULT4, Provider : Bib Payne, Status: Pen, Time: 1:15 PM Phyllis Taverasabi Work Phone: [facility] Work Phone: Start: 09-14-2021 Office outpatient vi sit 25 minutes Phyllis Asifrrabi Work Phone: [facility] Work Phone: Start: 09-14-2021 Patient encounter procedure Phyllis Zarrabi Work Phone: [facility] Work Phone: Start: 09-10-2021 Patient encounter procedure Phyllis Asifrrabi Work Phone: [facility] [address] [place] Work Phone: Start: 09-10-2021 PTFUADULT4, Provider : Bib Payne, Status: Pen, Time: 12:30 PM Phyllis Taverasabi Work Phone: [facility] Work Phone: Start: 09-09-2021 End: 09-09-2021 Office outpatient visit 10 minutes Dylon Galindo MD Work Phone: [facility] Comment on above: Closed displaced fra cture of greater trochanter of right femur with routine healing, subsequent encounter (Primary Dx) Start: 09-09-2021 Chart Update Phyllis Taverasab i Work Phone: [facility] Work Phone: Start: 09-08-2021 Patient encounter procedure Phyllis Asifrrabi Work Phone: [facility] Work Phone: Start: 09-06-2021 Patient encounter procedure Phyllis Asifrrabi Work Phone: [facility] [address] [place] Work Phone: Start: 09-03-2021 Patient encounter procedure [facility]yllis Zarrabi [facility] [place] Work Phone: Start: 08-27-2021 Patient encounter procedure Phyllis Mae Work [facility]: [facility] [address] [place] Work Phone: Start: 08-25-2021 PTFUADULT4, Provider : Bib Payne, Status: Pen, Time: 12:30 PM Phyllis Mae Work Phone: [facility] [place] Work Phone: Start: 08-24-2021 EPV, Provider: Phyllis Mae, Status: Pen, Time: 11:15 AM Phyllis Mae Work [facility]: [facility] [address] [place] Work Phone: Start: 08-24-2021 Office outpatient vi sit 25 minutes Phyllis Mae Work Phone: [facility] Work Phone: Start: 08-23-2021 Patient encounter procedure Phyllis Mae Work Phone: [facility] [address] [place] Work Phone: Start: 08-11-2021 Patient encounter procedure Phyllis Mae Work Phone: [facility] Work Phone: Start: 08-03-2021 End: 08-03-2021 Office outpatient visit 25 minutes David Waters [facility] Work Phone: [facility] Comment on above: 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, with long-term current use of insulin (HCC) (Primary Dx); Essential hypertension Start: 07-19-2021 AUDIT Phyllis Taveras i Work Phone: [facility] Work Phone: Start: 07-12-2021 Office outpatient vi sit 40 minutes Phyllis Mae Work Phone: [facility] Work Phone: Start: 07-01-2021 Chart Update Phyllis Asifrrab i Work Phone: [facility] Work Phone: Start: 06-17-2021 FUV, Provider: Jin Robbins II, Status: Pen, Time: 11:00 AM Phyllis Taverasabi Work Phone: -[facility] Work Phone: Start: 06-16-2021 Chart Update Phyllis Taverasab i Work Phone: [facility] Work Phone: Start: 06-01-2021 Office outpatient vi sit 40 minutes Phyllis Mae Work Phone: [facility] Work Phone: Start: 05-21-2021 End: 05-21-2021 Postop follow up visit related to original px Dylon Galindo MD Work Phone: [facility] Comment on above: Closed displaced fra cture of greater trochanter of right femur with routine healing, subsequent encounter (Primary Dx) Start: 04-27-2021 Critical care ill/in jured patient init 30-74 min Lev Stockton MD Work Phone: [facility] Start: 04-27-2021 End: 05-11-2021 Evaluation and management of inpatient Lev Stockton MD Work Phone: [facility] Start: 04-26-2021 End: 04-26-2021 Documentation procedure Kateryna Yeboah STITCH BONDING MACHINE DRAWER IN Work Phone: [facility] Start: 04-22-2021 End: 04-22-2021 Orders Only Kateryna Yeboah STITCH BONDING MACHINE DRAWER IN Work Phone: [facility] Comment on above: Urinary retention (P rimary Dx) Start: 04-19-2021 End: 04-19-2021 Documentation procedure Kateryna Yeboah STITCH BONDING MACHINE DRAWER IN Work Phone: [facility] Start: 04-05-2021 End: 04-05-2021 Documentation procedure Kateryna Yeboah STITCH BONDING MACHINE DRAWER IN Work Phone: [facility] Start: 04-01-2021 AUDIT Phyllismax Ho i Work Phone: [facility] Work Phone: Start: 03-24-2021 End: 03-24-2021 Office outpatient visit 10 minutes Dylon Galindo MD Work Phone: [facility] Comment on above: Closed displaced fra cture of greater trochanter of right femur with routine healing, subsequent encounter (Primary Dx) Start: 03-22-2021 End: 03-22-2021 Documentation procedure Kateryna Yeboah STITCH BONDING MACHINE DRAWER IN Work Phone: [facility] Start: 03-16-2021 End: 03-16-2021 Orders Only Kateryna Yeboah STITCH BONDING MACHINE DRAWER IN Work Phone: [facility] Start: 03-15-2021 End: 03-15-2021 Documentation procedure Kateryna Yeboah STITCH BONDING MACHINE DRAWER IN Work Phone: [facility] Start: 2021 End: 2021 Orders Only Kateryna Yeboah STITCH BONDING MACHINE DRAWER IN Work Phone: [facility] Comment on above: Claudication of lowe r extremity (HCC) (Primary Dx) Start: 01-13-2021 End: 01-13-2021 Refill David Waters Work Phone: [facility] Comment on above: Type 2 diabetes silvino itus without complications (HCC) Start: 01-11-2021 End: 01-11-2021 Subsequent hospital visit by physician Lance Modi Work Phone: [facility] Comment on above: Arrived Start: 01-01-2021 End: 01-01-2021 Patient encounter procedure Tosha Mosher Work Phone: [facility] Start: 12-05-2020 End: 12-05-2020 Orders Only Tosha Mosher Work Phone: [facility] Start: 11-23-2020 End: 11-23-2020 Phys/qhp telephone evaluation 21-30 min [place] Work Phone: [facility] Comment on above: Abnormal stress test (Primary Dx); PAD (peripheral artery disease) (HCC); PVD (peripheral vascular disease) (HCC) Start: 09-16-2020 Patient encounter procedure Phyllis Yefribeltran [facility] Work Phone: Start: 09-09-2020 Patient encounter procedure Phyllis Taverasclemencia [facility] Work Phone: Start: 09-08-2020 Patient encounter procedure Phyllis Taverasclemencia [facility] Work Phone: Start: 08-31-2020 End: 08-31-2020 Subsequent hospital visit by physician Phyllis Mae Work Phone: [facility] Comment on above: Nipple pain Start: 08-17-2020 Patient encounter procedure Phyllis Zarrclemencia [facility] Work Phone: Start: 08-03-2020 End: 08-03-2020 Office outpatient visit 25 minutes Erica Gardner Work Phone: [facility] Comment on above: Inadequately control led diabetes mellitus (HCC) (Primary Dx); Dyslipidemia Start: 07-20-2020 Patient encounter procedure Phyllis Zarrclemencia [facility] Work Phone: Start: 06-10-2020 End: 06-10-2020 Emergency department patient visit Ray Scherer Work Phone: [facility] Comment on above: Closed fracture [...] visit by physician Lola Barksdale Work Phone: [facility] Comment on above: Screening for [...] visit by physician [place] Work Phone: [facility] [facility] Comment on above: Chest pain, unspecif ied type; PVD (peripheral vascular disease) (HCC) Arrived Start: 04-25-2020 End: 04-25-2020 Patient encounter procedure [place] [facility] Start: 04-16-2020 Patient encounter procedure Phyllis Mae [facility] Work Phone: Start: 04-14-2020 End: 04-14-2020 Emergency department patient visit RAY SCHERER [facility] Start: 04-14-2020 End: 04-14-2020 Emergency department patient visit Ray Scherer Work Phone: [phone] [place] [address] Emergency Department Comment on above: Fall, initial encoun ter (Primary Dx); Alcoholic intoxication with complication (HCC) Start: 04-02-2020 Patient encounter procedure Phyllis Mae -[facility] Work Phone: Start: 02-17-2020 End: 02-17-2020 Patient encounter procedure Jasmyn Castillo [facility] Comment on above: proactive outreach Start: 02-11-2020 Refill oLla Barksdale MD Work Phone: [facility] Start: 12-27-2019 End: 12-27-2019 Office outpatient new 30 minutes David Waters Work Phone: [facility] Comment on above: IDDM (insulin depend ent diabetes mellitus) (HCC) (Primary Dx); Inadequately controlled diabetes mellitus (HCC); Dyslipidemia Start: 12-18-2019 Patient encounter procedure Phyllis Mae -[facility] Work Phone: Start: 12-04-2019 End: 12-04-2019 Office outpatient visit 25 minutes Cameron Munguia Work Phone: [facility] Comment on above: Left carotid artery stenosis (Primary Dx); Stenosis of left iliac artery (HCC); History of carotid endarterectomy; Neurogenic claudication Start: 12-04-2019 End: 12-04-2019 Subsequent hospital visit by physician Cameron Munguia Work Phone: [facility] Comment on above: Stenosis of left car otid artery; History of right-sided carotid endarterectomy Stenosis of left lorenzo ac artery (HCC) Start: 10-24-2019 End: 10-24-2019 Office outpatient visit 25 minutes [place] Work Phone: [facility] Comment on above: Abnormal stress test Start: 06-05-2019 End: 06-05-2019 Emergency department patient visit PHYLLIS MAE [facility] Start: 06-05-2019 End: 06-05-2019 Emergency department patient visit Bret Fuentes Work Phone: [facility] Emergency Department Comment on above: COPD exacerbation (H CC) (Primary Dx) Start: 05-27-2019 End: 05-27-2019 Emergency department patient visit Cornelia Martin Work Phone: [facility] Emergency Department Comment on above: Pneumonia of left lo wer lobe due to infectious organism (HCC) (Primary Dx) Start: 05-27-2019 End: 05-27-2019 Office outpatient visit 25 minutes [employer] Work Phone: [facility] Comment on above: Anemia, unspecified type (Primary Dx); Monoclonal gammopathy; Fatigue, unspecified type; SOB (shortness of breath) Start: 05-07-2019 Refill Tristen bray MD Work Phone: [facility] Comment on above: Medication Refill (L ovastatin ) Start: 04-01-2019 End: 04-01-2019 Office outpatient visit 25 minutes [place] Work Phone: [facility] Comment on above: Facial numbness (Linda juanis Dx); Statin intolerance; Abnormal stress test Start: 01-25-2019 End: 01-25-2019 Office outpatient visit 25 minutes [employer] Work Phone: [facility] Comment on above: Anemia, unspecified type (Primary Dx); Monoclonal gammopathy Start: 01-22-2019 End: 01-22-2019 Office outpatient visit 15 minutes Lola Barksdale Work Phone: [facility] Comment on above: Chronic obstructive pulmonary disease, unspecified COPD type (HCC) (Primary Dx); Cigarette Smoker; Screening for malignant neoplasm of respiratory organ Start: 01-21-2019 End: 01-21-2019 Patient encounter procedure Lola Barksdale Facility:[facility] Comment on above: Screening for malign ant neoplasm of respiratory organ; Cigarette Smoker Start: 11-28-2018 End: 11-28-2018 Office outpatient visit 25 minutes [place] Work Phone: [facility] Comment on above: Stenosis of left car otid artery (Primary Dx); History of right-sided carotid endarterectomy; Stenosis of left iliac artery (HCC); Neurogenic claudication Start: 11-26-2018 Patient encounter procedure Aquiles Garrisonnathalie Facility:[facility] Start: 11-26-2018 End: 11-26-2018 Patient encounter procedure [place] Bart Shanique Work Phone: [facility] Comment on above: Bilateral carotid ar francisco stenosis Start: 11-26-2018 End: 11-26-2018 Subsequent hospital visit by physician [place] Work Phone: [facility] Comment on above: Prominent abdominal aortic pulse Start: 11-25-2018 Refill Lola Barksdale MD Work Phone: [facility] Start: 11-15-2018 Patient encounter procedure Phyllis Mae Facility:[facility] Start: 11-15-2018 End: 11-16-2018 Patient encounter procedure Phyllis Mae Facility:[facility] Start: 11-13-2018 Patient encounter procedure [place] Cyndy Camilocody Facility:[facility] Start: 11-13-2018 End: 11-13-2018 Patient encounter procedure [place] Work Phone: [facility] Comment on above: Chest pain, unspecif ied type Start: 11-12-2018 End: 11-12-2018 Patient encounter procedure PHYLLIS MAE [facility] Start: 10-16-2018 End: 10-17-2018 Patient encounter procedure Phyllis Mae Facility:[facility] Start: 09-28-2018 End: 09-28-2018 Office outpatient visit 25 minutes Guillermo Branham Work Phone: [facility] Comment on above: Anemia, unspecified type (Primary Dx); Monoclonal gammopathy; Fatigue, unspecified type Start: 09-19-2018 Patient encounter procedure Josh Moura Facility:[facility] Start: 09-19-2018 End: 09-19-2018 Patient encounter procedure Josh Moura Work Phone: [facility] Start: 07-17-2018 End: 07-18-2018 Patient encounter procedure Jose Dailey Facility:[facility] Start: 07-02-2018 Patient encounter procedure Rochelle Kamadana Facility:[facility] Start: 07-02-2018 End: 07-02-2018 Patient encounter Rochelle Kamadana Work Phone: [facility] Start: 05-10-2018 Patient encounter procedure Guillermo Esdras Facility:[facility] Start: 05-10-2018 End: 05-10-2018 Patient encounter Guillermo Esdras Work Phone: [facility] Start: 05-07-2018 Patient encounter procedure Tristen Bere Myersa Facility:[facility] Start: 05-07-2018 End: 05-07-2018 Ambulatory Tristen Menjivar Work Phone: [facility] Start: 04-25-2018 End: 04-26-2018 [facility] Start: 04-17-2018 End: 04-18-2018 [facility] Start: 04-08-2018 End: 04-08-2018 Emergency department patient visit [facility] Facility:[facility] Start: 01-17-2018 Patient encounter procedure Lola Barksdale Facility:[facility] Start: 01-17-2018 End: 01-17-2018 Ambulatory Lola Barksdale Work Phone: [facility] Start: 01-11-2018 End: 01-12-2018 Patient encounter procedure Lola Barksdale Facility:[facility] Start: 01-10-2018 End: 01-11-2018 Patient encounter procedure Davi Nelson Facility:Davi Nelson DO Start: 01-04-2018 Office/outpatient vi sit, est, level 4 Guillermo Esdras Work Phone: [facility] Start: 12-21-2017 End: 12-22-2017 Patient encounter procedure Saksham Sulfazal Facility:[facility] Start: 12-20-2017 Patient encounter procedure Guillermo Esdras Facility:[facility] Start: 12-20-2017 End: 12-20-2017 Ambulatory Rochelle Jonatan Work Phone: [facility] Start: 12-18-2017 End: 12-18-2017 Patient encounter procedure Davi Nelson Facility:[facility] Start: 11-22-2017 Office/outpatient vi sit, est, level 4 Tristen Menjivar Work Phone: [facility] Start: 10-16-2017 Office/outpatient vi sit, est, level 3 [place] Work Phone: [facility] Start: 09-07-2017 Office outpatient vi sit 25 minutes Guillermo Esdras Work Phone: [facility] Start: 09-06-2017 End: 09-06-2017 Ambulatory Lola Barksdale Work Phone: [facility] Start: 08-30-2017 End: 08-30-2017 Ambulatory Guillermo Esdras Work Phone: [facility] Start: 08-17-2017 End: 08-17-2017 Patient encounter procedure Guillermo Esdras Work Phone: [facility] Start: 08-17-2017 Office outpatient ne w 30 minutes Guillermo Esdras Work Phone: [facility] Start: 07-07-2017 Ophthalmic examinati [...] [Mass/volume] in Urine by Test strip BHUMIKA Riley DP Work Phone: Start: 12-19-2023 Microalbumin [Mass/volume] in Urine by Test strip BHUMIKA Riley DPM Work Phone: Start: 07-11-2023 Microalbumin [Mass/volume] in Urine by Test strip Arianna Alfaro [employer] Work Phone: Start: 01-31-2023 Ophthalmic examination and evaluation Don Pennington MD Work Phone: Start: 12-01-2022 3 comp foot exam completed Don patterson MD Work Phone: Start: 12-01-2022 Microalbumin [Mass/volume] in Urine by Test strip Don Pennington MD Work Phone: Start: 06-10-2022 3 comp foot exam completed Erica GAGEC Work Phone: Start: 01-10-2022 3 comp foot exam completed Santana goldsmith PA-C Work Phone: Start: 12-14-2021 Microalbumin [Mass/volume] in Urine by Test strip David Waters [facility] Work Phone: Start: 09-29-2021 Lipid 1996 panel - Serum or Plasma Phyllis Mae MD Work Phone: Start: 08-03-2021 Hemoglobin glycosylated a1c David Waters [facility] Work Phone: Start: 08-03-2021 3 comp foot exam completed David vazquez [employer] Work Phone: Start: 05-11-2021 End: 05-11-2021 Glucose [...] 05-02-2021 Drug screen quantitative vancomycin Manuelito Durand [facility],PharmD Start: 05-02-2021 Glucose measurement Bryce Alvarez MD [...] Phone: Start: 05-02-2021 Creatinine blood Kenna Quintero [facility],PharmD Start: 05-01-2021 Glucose measurement Bryce Alvarez MD [...] Microalbumin [Mass/volume] in Urine by Test strip Katerynamohit Yeboah [employer] Work Phone: Start: 03-16-2021 Microalbumin [Mass/volume] in Urine by Test strip Kateryna Yeboah [employer] Work Phone: Start: 01-11-2021 Standard chest X-ray External Transcribed Start: 08-31-2020 MG Breast - bilateral diagnostic Externa l Transcribed Start: 08-03-2020 3 comp foot exam completed Phyllis Zarra Start: 07-28-2020 Microalbumin [Mass/volume] in Urine by [...] of thorax Lola Barksdale Work Phone: Start: 05-19-2020 Xray Chest 2 View PA + Lateral Phyllis Z arrclemencia Start: 05-07-2020 Ct thorax w/o contrast material Phyllis Carmelita Start: 05-07-2020 VASC LAB PVR (Arterial Physiologic) w/ Exercise Phyllis Zarrabi Start: 04-28-2020 Radionuclide myocardial perfusion study [place]a Work Phone: Start: 04-14-2020 End: 04-14-2020 Ct [...] Scherer Work Phone: Start: 04-14-2020 Prothrombin time [facility] Start: 04-14-2020 COVID-19, MOLECULAR [...] Microalbumin [Mass/volume] in Urine by Test strip Davidandrew Waters Start: 12-04-2019 Measurement of segmental blood pressure of artery of lower limb using doppler ultrasonography Cameron Munguia Work Phone: Start: 12-04-2019 Carotid artery doppler assessment Cameron Munguia Work Phone: Start: 06-05-2019 Natriuretic peptide [facility] Start: 06-05-2019 Assay of troponin quantitative [facility] Start: 06-05-2019 12 lead ECG Bret Fuentes Work Phone: Start: 06-05-2019 Basic metabolic panel calcium total [facility] Start: 06-05-2019 POC CBC [...] Work Phone: Start: 05-27-2019 RAINBOW DRAW Cornelia Mario Work Phone: Start: 04-01-2019 12 lead ECG [place] Work Phone: Start: 01-21-2019 Low dose computed tomography of thorax Lola Barksdale Work Phone: Start: 11-26-2018 Carotid artery doppler assessment [place] Work Phone: Start: 11-26-2018 Dup-scan aorta ivc iliac vascl/bpgs uni/lmtd [place] Work Phone: Start: 11-13-2018 Cv strs [...] 07-02-2018 End: 07-02-2018 Assay of magnesium Rochelle Mattadakathy Work Phone: Start: 07-02-2018 End: 07-02-2018 Assay of phosphorus inorganic Rochelle Gutierrez adana Work Phone: Start: 07-02-2018 End: 07-02-2018 Calcium total Rochelle Mattadana Work Phone: Start: 07-02-2018 End: 07-02-2018 Electrolyte panel Rochelle Mattadana Work Phone: Start: 07-02-2018 End: 07-02-2018 Hemoglobin and Hematocrit panel - Blood Rochelle Kamadana Work Phone: Start: 07-02-2018 End: 07-02-2018 [facility] [...] Work Phone: Operative procedure on hand Phyllis Yefrirrabi Comment on above: Completed: 2006 Operative procedure on hip F mirian Mae Work Phone: End: 08-30-2010 Procedure on neck Phyllismax Mae End: 07-10-2015 Repair of musculotendinous cuff of shoulder Phyllis Mae Plan of Treatment Date Care Activity Detail Author Start: 06-10-2030 DTaP/Tdap/Td Vaccines (2 - Td or Tdap) DTaP/Tdap/Td Vaccines (2 - Td or Tdap) [facility] Start: 06-10-2030 Tetanus vaccination Tetanus: Every 10yrs [facility] Start: 12-18-2027 Screening for malignant neoplasm of colon [facility] Start: 03-08-2026 Glaucoma screening Diabetes: Retinopathy Screening [facility] Start: 11-06-2025 Medicare Annual Wellness Visit Medicare Annual Wellness Visit (AWV) [facility] Start: 11-05-2025 Medicare Wellness Visit Medicare Wellness Visit [facility] Start: 11-05-2025 End: 11-05-2025 Patient encounter procedure 11/05/2025 12:45 PM EST Office Visit [facility] [address] [place] [phone] Phyllis Mae MD [address] [place] [address] [facility] Start: 09-09-2025 Diabetic foot examination Diabetic Foot Exam [facility] Start: 05-07-2025 Diabetic foot examination Diabetic Foot Exam [facility] Start: 04-25-2025 Lipid panel Lipid Panel [facility] Start: 04-10-2025 [facility] Start: 04-08-2025 End: 04-08-2025 Patient encounter procedure 04/08/2025 1:15 PM EDT Office Visit [facility] [address] [place] [address] BHUMIKA Lin, DPMigdalia [address] [place] [address] [facility] Start: 04-05-2025 Prostate specific antigen measurement PSA Level [facility] Start: 03-08-2025 Glaucoma screening [facility] Start: 03-08-2025 Urine screening for protein [facility] Start: 03-04-2025 Urine screening for protein eGFR Diabetes [facility] Start: 03-04-2025 End: 03-04-2025 Patient encounter procedure 03/04/2025 12:45 PM EDT Office Visit [facility] [address] [place] [phone] Phyllis Mae MD [address] [place] [address] [facility] Start: 02-27-2025 Medicare Annual Wellness Visit Medicare Annual Wellness Visit (AWV) [facility] Start: 02-26-2025 History and physical examination, annual for health maintenance Wellness Visit [facility] Start: 02-26-2025 Medicare Wellness Visit Medicare Wellness Visit [facility] Start: 01-02-2025 End: 01-02-2025 Patient encounter procedure 01/02/2025 1:15 PM EST Office Visit [facility] [address] [place] [phone] BHUMIKA Lin, DPM [address] [place] [address] [facility] Start: 12-27-2024 Urine screening for protein Urine (micro)albumin/creatinine ratio - Diabetes [facility] Start: 12-19-2024 Diabetic foot examination Diabetic Foot Exam [facility] Start: 12-19-2024 Urine screening for protein Urine Microalbumin [facility] Start: 12-11-2024 End: 12-11-2024 Patient encounter procedure 12/11/2024 2:15 PM EST Office Visit [facility] [address] [place] [address] [place] [phone] Fior Forbes, [employer] [address] [place] [address] [facility] Start: 12-10-2024 End: 09-09-2025 Comprehensive metabolic 2000 panel - Serum or Plasma Comprehensive Metabolic Panel Lab Routine Type 2 diabetes mellitus with stage 3b chronic kidney disease, with long-term current use of insulin (HCC) Expected: 12/10/2024, Expires: 09/09/2025 [facility] Work Phone: Comment on above: Expected: 12/10/2024, Expires: Start: 12-10-2024 End: 09-09-2025 Hemoglobin A1c/Hemoglobin.total in Blood Hemoglobin A1c Lab Routine Type 2 diabetes mellitus with stage 3b chronic kidney disease, with long-term current use of insulin (HCC) Expected: 12/10/2024, Expires: 09/09/2025 [facility] Comment on above: Expected: 12/10/2024, Expires: Start: 12-10-2024 End: 09-09-2025 Lipid 1996 panel - Serum or Plasma Lipid Panel Lab Routine Dyslipidemia Expected: 12/10/2024, Expires: 09/09/2025 [facility] Comment on above: Expected: 12/10/2024, Expires: Start: 12-10-2024 End: 09-09-2025 Microalbumin measurement, urine, quantitative Microalbumin/Creatinine Ratio, UR Random Lab Routine Type 2 diabetes mellitus with stage 3b chronic kidney disease, with long-term current use of insulin (HCC) Expected: 12/10/2024, Expires: 09/09/2025 [facility] Comment on above: Expected: 12/10/2024, Expires: Start: 12-10-2024 End: 09-09-2025 Thyrotropin [Units/volume] in Serum or Plasma TSH Lab Routine Type 2 diabetes mellitus with stage 3b chronic kidney disease, with long-term current use of insulin (HCC) Expected: 12/10/2024, Expires: 09/09/2025 [facility] Comment on above: Expected: 12/10/2024, Expires: Start: 12-10-2024 End: 09-09-2025 Thyroxine (T4) free [Mass/volume] in Serum or Plasma T4, Free Lab Routine Type 2 diabetes mellitus with stage 3b chronic kidney disease, with long-term current use of insulin (HCC) Expected: 12/10/2024, Expires: 09/09/2025 [facility] Comment on above: Expected: 12/10/2024, Expires: Start: 12-05-2024 End: 12-05-2025 Comprehensive metabolic 2000 panel - Serum or Plasma Comprehensive Metabolic Panel Lab Routine Type 2 diabetes mellitus with hyperglycemia, with long-term current use of insulin CRF (chronic renal failure), stage 3 (moderate) (Multi) Expected: 12/05/2024 (Approximate), Expires: 12/05/2025 [facility] Service Area Work Phone: Comment on above: Expected: 12/05/2024 (Approximate), Expi res: 12/05/2025 Start: 12-05-2024 End: 12-05-2025 Folate [Mass/volume] in Serum or Plasma Folate Lab Routine High serum folic acid level Expected: 12/05/2024 (Approximate), Expires: 12/05/2025 [facility] Work Phone: Comment on above: Expected: 12/05/2024 (Approximate), Expi res: 12/05/2025 Start: 12-05-2024 Hemoglobin A1c measurement [address] Start: 12-05-2024 End: 12-05-2025 Hemoglobin A1c/Hemoglobin.total in Blood Hemoglobin A1C Lab Routine Type 2 diabetes mellitus with hyperglycemia, with long-term current use of insulin Expected: 12/05/2024 (Approximate), Expires: 12/05/2025 [facility] Work Phone: Comment on above: Expected: 12/05/2024 (Approximate), Expi res: 12/05/2025 Start: 12-05-2024 End: 12-05-2025 Lipid 1996 panel - Serum or Plasma Lipid Panel Lab Routine Mixed hyperlipidemia Expected: 12/05/2024 (Approximate), Expires: 12/05/2025 [facility] Work Phone: Comment on above: Expected: 12/05/2024 (Approximate), Expi res: 12/05/2025 Start: 12-05-2024 End: 12-05-2025 Magnesium [Mass/volume] in Serum or Plasma Magnesium Lab Routine Anemia, unspecified type Expected: 12/05/2024 (Approximate), Expires: 12/05/2025 [facility] Work Phone: Comment on above: Expected: 12/05/2024 (Approximate), Expi res: 12/05/2025 Start: 12-05-2024 End: 12-05-2025 Prostate specific Ag [Mass/volume] in Serum or Plasma Prostate Specific Antigen, Screen Lab Routine Prostate cancer screening Expected: 12/05/2024 (Approximate), Expires: 12/05/2025 [facility] Work Phone: Comment on above: Expected: 12/05/2024 (Approximate), Expi res: 12/05/2025 Start: 12-05-2024 End: 12-05-2025 Zinc [Mass/volume] in Serum or Plasma Zinc Lab Routine Anemia, unspecified type Expected: 12/05/2024 (Approximate), Expires: 12/05/2025 [facility] Work Phone: Comment on above: Expected: 12/05/2024 (Approximate), Expi res: 12/05/2025 Start: 12-05-2024 End: 12-05-2024 Patient encounter procedure 12/05/2024 12:45 PM EST Office Visit [facility] [address] [place] [phone] Phyllis Mae MD [address] [place] [address] [facility] Start: 11-26-2024 End: 11-26-2024 Patient encounter procedure 11/26/2024 1:15 PM EST Office Visit [facility] [address] [place] [address] [facility] Start: 11-19-2024 End: 11-19-2024 Patient encounter procedure 11/19/2024 10:15 AM EST Office Visit [facility] [address] [place] [address] [facility] Start: 11-05-2024 End: 11-05-2025 CBC W Auto Differential panel - Blood CBC and Auto Differential Lab Routine Anemia, unspecified type Expected: 11/05/2024 (Approximate), Expires: 11/05/2025 [facility] Work Phone: Comment on above: Expected: 11/05/2024 (Approximate), Expi res: 11/05/2025 Start: 11-05-2024 End: 11-05-2025 Cobalamin (Vitamin B12) [Mass/volume] in Serum or Plasma Vitamin B12 Lab Routine Anemia, unspecified type Expected: 11/05/2024 (Approximate), Expires: 11/05/2025 [facility] Work Phone: Comment on above: Expected: 11/05/2024 (Approximate), Expi res: 11/05/2025 Start: 11-05-2024 End: 11-05-2025 Comprehensive metabolic 2000 panel - Serum or Plasma Comprehensive Metabolic Panel Lab Routine Type 2 diabetes mellitus with hyperglycemia, with long-term current use of insulin Hypertension associated with type 2 diabetes mellitus (Multi) Chronic fatigue Expected: 11/05/2024 (Approximate), Expires: 11/05/2025 [facility] Service Area Work Phone: Comment on above: Expected: 11/05/2024 (Approximate), Expi res: 11/05/2025 Start: 11-05-2024 End: 11-05-2025 Ferritin [Mass/volume] in Serum or Plasma Ferritin Lab Routine Anemia, unspecified type Expected: 11/05/2024 (Approximate), Expires: 11/05/2025 [facility] Work Phone: Comment on above: Expected: 11/05/2024 (Approximate), Expi res: 11/05/2025 Start: 11-05-2024 End: 11-05-2025 Folate [Mass/volume] in Serum or Plasma Folate Lab Routine Anemia, unspecified type Expected: 11/05/2024 (Approximate), Expires: 11/05/2025 [facility] Work Phone: Comment on above: Expected: 11/05/2024 (Approximate), Expi res: 11/05/2025 Start: 11-05-2024 Hemoglobin A1c measurement Diabetes: Hemoglobin A1C [facility] Start: 11-05-2024 End: 11-05-2025 Hemoglobin A1c/Hemoglobin.total in Blood Hemoglobin A1C Lab Routine Type 2 diabetes mellitus with hyperglycemia, with long-term current use of insulin Expected: 11/05/2024 (Approximate), Expires: 11/05/2025 [facility] Work Phone: Comment on above: Expected: 11/05/2024 (Approximate), Expi res: 11/05/2025 Start: 11-05-2024 End: 11-05-2025 Iron and Iron binding capacity panel - Serum or Plasma Iron and TIBC Lab Routine Anemia, unspecified type Expected: 11/05/2024 (Approximate), Expires: 11/05/2025 [facility] Work Phone: Comment on above: Expected: 11/05/2024 (Approximate), Expi res: 11/05/2025 Start: 11-05-2024 End: 11-05-2025 Magnesium [Mass/volume] in Serum or Plasma Magnesium Lab Routine Chronic fatigue Expected: 11/05/2024 (Approximate), Expires: 11/05/2025 [facility] Work Phone: Comment on above: Expected: 11/05/2024 (Approximate), Expi res: 11/05/2025 Start: 11-05-2024 End: 11-05-2025 Methylmalonate [Moles/volume] in Serum or Plasma Methylmalonic Acid Lab Routine Anemia, unspecified type Expected: 11/05/2024 (Approximate), Expires: 11/05/2025 [facility] Work Phone: Comment on above: Expected: 11/05/2024 (Approximate), Expi res: 11/05/2025 Start: 11-05-2024 End: 11-05-2025 Microalbumin/Creatini ne [Mass Ratio] in Urine Albumin-Creatinine Ratio, Urine Random Lab Routine Type 2 diabetes mellitus with hyperglycemia, with long-term current use of insulin Expected: 11/05/2024 (Approximate), Expires: 11/05/2025 [facility] Work Phone: Comment on above: Expected: 11/05/2024 (Approximate), Expi res: 11/05/2025 Start: 11-05-2024 End: 11-05-2025 TSH with reflex to Free T4 if abnormal TSH with reflex to Free T4 if abnormal Lab Routine Chronic fatigue Expected: 11/05/2024 (Approximate), Expires: 11/05/2025 [facility] Work Phone: Comment on above: Expected: 11/05/2024 (Approximate), Expi res: 11/05/2025 Start: 11-05-2024 End: 11-05-2025 Zinc [Mass/volume] in Serum or Plasma Zinc Lab Routine Chronic fatigue Expected: 11/05/2024 (Approximate), Expires: 11/05/2025 [facility] Work Phone: Comment on above: Expected: 11/05/2024 (Approximate), Expi res: 11/05/2025 Start: 10-18-2024 Diabetic foot examination Diabetic Foot Exam [facility] Start: 10-03-2024 End: 10-03-2024 Patient encounter procedure 10/03/2024 3:40 PM EST Office Visit [facility] [address] [facility], 3rd [place] [address] Cameron Munguia III, [address] [place] [address] [facility] Start: 10-03-2024 End: 10-03-2024 Patient encounter procedure [facility] Start: 09-23-2024 End: 09-23-2024 Patient encounter procedure [facility] Start: 09-16-2024 End: 09-16-2024 Patient encounter procedure [facility] Start: 09-09-2024 End: 09-09-2024 Patient encounter procedure 09/09/2024 2:30 PM EST Office Visit [facility] [address] [facility] [place] [address] Fior Forbes, [employer] [address] [place] [address] [facility] Start: 09-08-2024 Urine screening for protein Urine (micro)albumin/creatinine ratio - Diabetes [facility] Start: 07-26-2024 Hemoglobin A1c measurement [facility] Start: 07-25-2024 End: 07-25-2025 CBC W Auto Differential panel - Blood CBC and Auto Differential Lab Routine Thrombocytopenia ([facility]) Fatigue, unspecified type Expected: 07/25/2024 (Approximate), Expires: 07/25/2025 [facility] Work Phone: Comment on above: Expected: 07/25/2024 (Approximate), Expi res: 07/25/2025 Start: 07-25-2024 End: 07-25-2025 Comprehensive metabolic 2000 panel - Serum or Plasma Comprehensive Metabolic Panel Lab Routine Fatigue, unspecified type CRF (chronic renal failure), stage 3 (moderate) (Multi) Type 2 diabetes mellitus with hyperglycemia, with long-term current use of insulin (Multi) Expected: 07/25/2024 (Approximate), Expires: 07/25/2025 [facility] Work Phone: Comment on above: Expected: 07/25/2024 (Approximate), Expi res: 07/25/2025 Start: 07-25-2024 End: 07-25-2025 Hemoglobin A1c/Hemoglobin.total in Blood Hemoglobin A1C Lab Routine Type 2 diabetes mellitus with hyperglycemia, with long-term current use of insulin (Multi) Expected: 07/25/2024 (Approximate), Expires: 07/25/2025 [facility] Work Phone: Comment on above: Expected: 07/25/2024 (Approximate), Expi res: 07/25/2025 Start: 07-25-2024 End: 07-25-2025 Magnesium [Mass/volume] in Serum or Plasma Magnesium Lab Routine Fatigue, unspecified type Expected: 07/25/2024 (Approximate), Expires: 07/25/2025 [facility] Work Phone: Comment on above: Expected: 07/25/2024 (Approximate), Expi res: 07/25/2025 Start: 07-25-2024 End: 07-25-2025 TSH with reflex to Free T4 if abnormal TSH with reflex to Free T4 if abnormal Lab Routine Fatigue, unspecified type Expected: 07/25/2024 (Approximate), Expires: 07/25/2025 [facility] Work Phone: Comment on above: Expected: 07/25/2024 (Approximate), Expi res: 07/25/2025 Start: 07-25-2024 End: 07-25-2025 US Liver limited US abdomen limited liver Imaging Routine Thrombocytopenia (CMS-HCC) Expected: 07/25/2024, Expires: 07/25/2025 [facility] Service Area Work Phone: Comment on above: Expected: 07/25/2024, Expires: Start: 07-25-2024 End: 07-25-2025 Zinc [Mass/volume] in Serum or Plasma Zinc Lab Routine Fatigue, unspecified type Expected: 07/25/2024 (Approximate), Expires: 07/25/2025 [facility] Work Phone: Comment on above: Expected: 07/25/2024 (Approximate), Expi res: 07/25/2025 Start: 07-11-2024 Urine screening for protein Urine Microalbumin [facility] Start: 07-09-2024 End: 07-09-2024 Patient encounter procedure 07/09/2024 2:15 PM EDT Office Visit [facility] [address] [place] [address] [facility] Start: 06-30-2024 COVID-19 Vaccine ( season) COVID-19 Vaccine ( season) [facility] Start: 06-30-2024 COVID-19 Vaccine ( season) COVID-19 Vaccine ( season) [facility] Start: 06-30-2024 Influenza vaccination Influenza Vaccine (#1) [facility] Start: 06-27-2024 End: 06-27-2024 Patient encounter procedure 06/27/2024 2:00 PM EDT Office Visit [facility] [address] [place] [phone] BHUMIKA Lin, DPM [address] [place] [address] [facility] Start: 06-08-2024 Hemoglobin A1c measurement A1C [facility] Start: 05-21-2024 End: 05-21-2024 Patient encounter procedure 05/21/2024 8:15 AM EDT Office Visit [facility] [address] [place], [place] [address]adam [place] [address] BHUMIKA Lin, DPM [address] [place] [address] [facility] Start: 05-14-2024 End: 05-14-2025 Wound Anaerobic Culture Wound Anaerobic Culture Microbiology Routine Ingrown toenail Paronychia of great toe PVD (peripheral vascular disease) ([facility]) Tobacco use Xerosis of skin Diabetic foot ([facility]) Expected: 05/14/2024, Expires: 05/14/2025 [facility] Comment on above: Expected: 05/14/2024, Expires: Start: 03-26-2024 End: 03-26-2024 Patient encounter procedure 03/26/2024 1:30 PM EDT Office Visit [facility] [address] [place], [place] [address] [address] BHUMIKA Lin, DPM [address] [place] [address] [facility] Start: 03-19-2024 End: 03-19-2024 Patient encounter procedure 03/19/2024 1:45 PM EDT Office Visit [facility] [address] [place] [address] [place] [phone] David Waters, RAQUEL [address] [place] [address] [facility] Start: 2024 Respiratory Syncytial Virus Immunization: Risk, 60-74 Risk, or 75+ (1 - 1-dose 75+ series) Respiratory Syncytial Virus Immunization: Risk, 60-74 Risk, or 75+ (1 - 1-dose 75+ series) [facility] Start: 2024 RSV High Risk: (Elderly (60+) or Population) (1 - 1-dose 75+ series) RSV High Risk: (Elderly (60+) or Population) (1 - 1-dose 75+ series) [facility] Start: 02-28-2024 Screening for malignant neoplasm of lung Low-dose CT Lung Cancer Screen [facility] Start: 02-27-2024 End: 02-27-2024 Patient encounter procedure 02/27/2024 1:30 PM EDT Office Visit [facility] [address] [place] [address] Phyllis Mae MD [address] [place] [address] [facility] Start: 02-21-2024 End: 02-21-2024 Patient encounter procedure 02/21/2024 3:00 PM EDT Appointment [facility] [address] [place] [address] [place] [address] BHUMIKA Lin, DPM [address] [place] [address] [facility] Start: 02-17-2024 End: 10-18-2024 Comprehensive metabolic 2000 panel - Serum or Plasma Comprehensive Metabolic Panel Lab Routine Type 2 diabetes mellitus with stage 3b chronic kidney disease, with long-term current use of insulin (HCC) Expected: 02/17/2024, Expires: 10/18/2024 [facility] Work Phone: Comment on above: Expected: 02/17/2024, Expires: Start: 02-17-2024 End: 10-18-2024 Hemoglobin A1c/Hemoglobin.total in Blood Hemoglobin A1c Lab Routine Type 2 diabetes mellitus with stage 3b chronic kidney disease, with long-term current use of insulin (HCC) Expected: 02/17/2024, Expires: 10/18/2024 [facility] Comment on above: Expected: 02/17/2024, Expires: Start: 02-17-2024 End: 10-18-2024 Lipid 1996 panel - Serum or Plasma Lipid Panel Lab Routine Dyslipidemia Expected: 02/17/2024, Expires: 10/18/2024 [facility] Comment on above: Expected: 02/17/2024, Expires: Start: 02-17-2024 End: 10-18-2024 Microalbumin measurement, urine, quantitative Microalbumin/Creatinine Ratio, UR Random Lab Routine Type 2 diabetes mellitus with stage 3b chronic kidney disease, with long-term current use of insulin (HCC) Expected: 02/17/2024, Expires: 10/18/2024 [facility] Comment on above: Expected: 02/17/2024, Expires: Start: 02-17-2024 End: 10-18-2024 Thyrotropin [Units/volume] in Serum or Plasma TSH Lab Routine Type 2 diabetes mellitus with stage 3b chronic kidney disease, with long-term current use of insulin (HCC) Expected: 02/17/2024, Expires: 10/18/2024 [facility] Comment on above: Expected: 02/17/2024, Expires: Start: 02-17-2024 End: 10-18-2024 Thyroxine (T4) free [Mass/volume] in Serum or Plasma T4, Free Lab Routine Type 2 diabetes mellitus with stage 3b chronic kidney disease, with long-term current use of insulin (HCC) Expected: 02/17/2024, Expires: 10/18/2024 [facility] Comment on above: Expected: 02/17/2024, Expires: Start: 02-01-2024 Glaucoma screening [facility] Start: 01-29-2024 End: 01-29-2024 Patient encounter procedure 01/29/2024 3:00 PM EDT Appointment [facility] [address] [facility] [place] [phone] BHUMIKA Lin, DPMigdalia [address] [place] [address] [facility] Start: 01-10-2024 Hemoglobin A1c measurement [facility] Start: 12-30-2023 Medicare Annual Wellness Visit Medicare Annual Wellness Visit (AWV) [facility] Start: 12-14-2023 End: 12-14-2024 CBC W Auto Differential panel - Blood CBC and Auto Differential Lab Routine Anemia, unspecified type Expected: 12/14/2023 (Approximate), Expires: 12/14/2024 [facility] Work Phone: Comment on above: Expected: 12/14/2023 (Approximate), Expi res: 12/14/2024 Start: 12-14-2023 End: 12-14-2024 Comprehensive metabolic 2000 panel - Serum or Plasma Comprehensive Metabolic Panel Lab Routine Type 2 diabetes mellitus with other circulatory complication, with long-term current use of insulin (CMS/HCC) Expected: 12/14/2023 (Approximate), Expires: 12/14/2024 [facility] Service Area Work Phone: Comment on above: Expected: 12/14/2023 (Approximate), Expi res: 12/14/2024 Start: 12-14-2023 End: 12-14-2024 Hemoglobin A1c/Hemoglobin.total in Blood Hemoglobin A1C Lab Routine Type 2 diabetes mellitus with other circulatory complication, with long-term current use of insulin (CMS/HCC) Expected: 12/14/2023 (Approximate), Expires: 12/14/2024 [facility] Work Phone: Comment on above: Expected: 12/14/2023 (Approximate), Expi res: 12/14/2024 Start: 12-14-2023 End: 12-14-2024 Lipid 1996 panel - Serum or Plasma Lipid Panel Lab Routine Hypertriglyceridemia Expected: 12/14/2023 (Approximate), Expires: 12/14/2024 [facility] Work Phone: Comment on above: Expected: 12/14/2023 (Approximate), Expi res: 12/14/2024 Start: 12-14-2023 End: 12-14-2024 Prostate specific Ag [Mass/volume] in Serum or Plasma Prostate Specific Antigen, Screen Lab Routine Screening for prostate cancer Expected: 12/14/2023 (Approximate), Expires: 12/14/2024 [facility] Work Phone: Comment on above: Expected: 12/14/2023 (Approximate), Expi res: 12/14/2024 Start: 12-01-2023 Diabetic foot examination [facility] Start: 12-01-2023 Urine screening for protein Urine Microalbumin [facility] Start: 11-12-2023 Fasting lipid profile LIPID SCREENING [facility] Work Phone: Start: 10-30-2023 Screening for malignant neoplasm of colon [facility] Start: 10-18-2023 End: 10-18-2023 Patient encounter procedure 10/18/2023 1:00 PM EST Office Visit [facility] [address] [facility] [place] [address] Fior Forbes CNP [address] [place] [address] [facility] Start: 10-11-2023 End: 10-11-2023 Patient encounter procedure 10/11/2023 1:00 PM EST Office Visit [facility] [address] [facility], 2nd [place] [phone] Deshaun Rordigues MD [address] [place] [address] [facility] Start: 10-09-2023 Hemoglobin A1c measurement [facility] Start: 07-19-2023 End: 07-19-2023 Patient encounter procedure 07/19/2023 3:20 PM EDT Office Visit [facility] [address] [facility] [place] [address] Aquiles Bay MD [address] [address] [facility] Start: 06-30-2023 COVID-19 Vaccine ( season) COVID-19 Vaccine () [facility] Start: 06-30-2023 Influenza vaccination Sequential Influenza Vaccine (#1) [facility] Start: 06-16-2023 End: 06-16-2023 Patient encounter procedure 06/16/2023 2:15 PM EDT Office Visit [facility] [address] [facility] [place] [phone] Fior Forbes CNP [address] [place] [phone] [facility] Start: 06-10-2023 Diabetic foot examination Foot Exam [facility] Start: 04-21-2023 End: 04-21-2023 Patient encounter procedure 04/21/2023 11:30 AM EDT Office Visit [facility] [address] [facility] [place] [phone] Santana Orosco PA-C [address] [place] [address] [facility] Start: 04-05-2023 End: 04-05-2023 Patient encounter procedure 04/05/2023 2:30 PM EDT Office Visit [facility] [address] [facility], 2nd [place] [address] Deshaun Rodrigues MD [address] [facility] 2[address] [place] [address] [facility] Start: 03-07-2023 End: 03-07-2024 CBC W Auto Differential panel - Blood CBC and Auto Differential Lab Routine Other fatigue Expected: 03/07/2023 (Approximate), Expires: 03/07/2024 [facility] Work Phone: Comment on above: Expected: 03/07/2023 (Approximate), Expi res: 03/07/2024 Start: 03-07-2023 End: 03-07-2024 Cobalamin (Vitamin B12) [Mass/volume] in Serum or Plasma Vitamin B12 Lab Routine Other fatigue Expected: 03/07/2023 (Approximate), Expires: 03/07/2024 [facility] Work Phone: Comment on above: Expected: 03/07/2023 (Approximate), Expi res: 03/07/2024 Start: 03-07-2023 End: 03-07-2024 Comprehensive metabolic 2000 panel - Serum or Plasma Comprehensive Metabolic Panel Lab Routine Hypertension associated with type 2 diabetes mellitus (CMS/HCC) Type 2 diabetes mellitus without complication, with long-term current use of insulin (CMS/HCC) Expected: 03/07/2023 (Approximate), Expires: 03/07/2024 [facility] Service Area Work Phone: Comment on above: Expected: 03/07/2023 (Approximate), Expi res: 03/07/2024 Start: 03-07-2023 End: 03-07-2024 Folate [Mass/volume] in Serum or Plasma Folate Lab Routine Other fatigue Expected: 03/07/2023 (Approximate), Expires: 03/07/2024 [facility] Work Phone: Comment on above: Expected: 03/07/2023 (Approximate), Expi res: 03/07/2024 Start: 03-07-2023 End: 03-07-2024 Hemoglobin A1c/Hemoglobin.total in Blood Hemoglobin A1C Lab Routine Type 2 diabetes mellitus without complication, with long-term current use of insulin (CMS/HCC) Expected: 03/07/2023 (Approximate), Expires: 03/07/2024 [facility] Work Phone: Comment on above: Expected: 03/07/2023 (Approximate), Expi res: 03/07/2024 Start: 03-07-2023 End: 03-07-2024 Magnesium [Mass/volume] in Serum or Plasma Magnesium Lab Routine Other fatigue Expected: 03/07/2023 (Approximate), Expires: 03/07/2024 [facility] Work Phone: Comment on above: Expected: 03/07/2023 (Approximate), Expi res: 03/07/2024 Start: 03-07-2023 End: 03-07-2024 Methylmalonate [Moles/volume] in Serum or Plasma Methylmalonic Acid Lab Routine Other fatigue Expected: 03/07/2023 (Approximate), Expires: 03/07/2024 [facility] Work Phone: Comment on above: Expected: 03/07/2023 (Approximate), Expi res: 03/07/2024 Start: 03-07-2023 End: 03-07-2024 Prostate specific Ag [Mass/volume] in Serum or Plasma Prostate Specific Antigen, Screen Lab Routine Screening for prostate cancer Expected: 03/07/2023 (Approximate), Expires: 03/07/2024 [facility] Work Phone: Comment on above: Expected: 03/07/2023 (Approximate), Expi res: 03/07/2024 Start: 01-11-2023 Prostate specific antigen measurement PSA Level [facility] Start: 01-10-2023 Diabetic foot examination Foot Exam [facility] Start: 01-02-2023 Hemoglobin A1c measurement A1C [facility] Start: 12-22-2022 Hemoglobin A1c measurement A1C [facility] Start: 12-20-2022 FUV, Provider: Phyllis Mae, Status: Pen, Time: 1:00 PM FUV, Provider: Phyllis Mae, Status: Pen, Time: 1:00 PM [facility] Work Phone: Start: 12-20-2022 Patient encounter procedure [facility] Medicine [place] Start: 12-14-2022 Microalbumin measurement, urine, quantitative Urine Microalbumin [facility] Start: 12-14-2022 Urine screening for protein Urine Microalbumin [facility] Start: 12-07-2022 End: 12-07-2022 Patient encounter procedure 12/07/2022 Office Visit Neurology Deshaun Rodrigues MD [facility] [place] [address] [facility] Start: 12-05-2022 End: 12-05-2022 Patient encounter procedure 12/05/2022 Office Visit Cardiology Aquiles Bay MD [address] [address] [facility] Start: 12-01-2022 End: 12-01-2022 Patient encounter procedure 12/01/2022 Office Visit Endocrinology David Waters CNP [address] [place] [address] [facility] Start: 11-23-2022 End: 11-23-2022 Patient encounter procedure 11/23/2022 Office Visit Wound Care Maureen Brown MD [address] [facility] [address] [place] [address] [facility] Start: 11-12-2022 Hemoglobin A1c measurement A1C [facility] Start: 11-01-2022 FUV, Provider: Phyllis Mae, Status: Pen, Time: 12:45 PM FUV, Provider: Phyllis Mae, Status: Giacomo, Time: 12:45 PM [facility] Work Phone: Start: 10-11-2022 End: 10-11-2022 Patient encounter procedure 10/11/2022 Office Visit Endocrinology David Waters CNP [address] [place] [address] [facility] Start: 10-10-2022 End: 06-10-2023 Complete blood count with white cell differential, manual CBC and Differential Lab Routine Type 2 diabetes mellitus with stage 3b chronic kidney disease, with long-term current use of insulin (HCC) Expected: 10/10/2022 (Approximate), Expires: 06/10/2023 [facility] Comment on above: Expected: 10/10/2022 (Approximate), Expi res: 06/10/2023 Start: 10-10-2022 End: 06-10-2023 Comprehensive metabolic 2000 panel - Serum or Plasma Comprehensive Metabolic Panel Lab Routine Type 2 diabetes mellitus with stage 3b chronic kidney disease, with long-term current use of insulin (HCC) Expected: 10/10/2022 (Approximate), Expires: 06/10/2023 [facility] Comment on above: Expected: 10/10/2022 (Approximate), Expi res: 06/10/2023 Start: 10-10-2022 End: 06-10-2023 Hemoglobin A1c/Hemoglobin.total in Blood Hemoglobin A1c Lab Routine Type 2 diabetes mellitus with stage 3b chronic kidney disease, with long-term current use of insulin (HCC) Expected: 10/10/2022 (Approximate), Expires: 06/10/2023 [facility] Work Phone: Comment on above: Expected: 10/10/2022 (Approximate), Expi res: 06/10/2023 Start: 10-10-2022 End: 06-10-2023 Lipid 1996 panel - Serum or Plasma Lipid Panel Lab Routine Type 2 diabetes mellitus with stage 3b chronic kidney disease, with long-term current use of insulin (HCC) Expected: 10/10/2022 (Approximate), Expires: 06/10/2023 [facility] Comment on above: Expected: 10/10/2022 (Approximate), Expi res: 06/10/2023 Start: 10-10-2022 End: 06-10-2023 Thyrotropin [Units/volume] in Serum or Plasma TSH Lab Routine Type 2 diabetes mellitus with stage 3b chronic kidney disease, with long-term current use of insulin (HCC) Expected: 10/10/2022 (Approximate), Expires: 06/10/2023 [facility] Comment on above: Expected: 10/10/2022 (Approximate), Expi res: 06/10/2023 Start: 10-10-2022 End: 06-10-2023 Thyroxine (T4) free [Mass/volume] in Serum or Plasma T4, Free Lab Routine Type 2 diabetes mellitus with stage 3b chronic kidney disease, with long-term current use of insulin (HCC) Expected: 10/10/2022 (Approximate), Expires: 06/10/2023 [facility] Comment on above: Expected: 10/10/2022 (Approximate), Expi res: 06/10/2023 Start: 10-04-2022 End: 10-04-2022 Patient encounter procedure 10/04/2022 Appointment Cardiology Aquiles Bay MD [address] [address] [facility] Start: 09-29-2022 Lipid panel Lipid Panel [facility] Start: 08-15-2022 End: 08-15-2022 Patient encounter procedure 08/15/2022 Appointment Cardiology Aquiles Bay MD [address] [address] [facility] Start: 08-03-2022 Diabetic foot examination Foot Exam [facility] Start: 07-29-2022 End: 07-29-2022 Patient encounter procedure 07/29/2022 Appointment Cardiology Aquiles Bay MD [address] [address] [facility] Start: 07-28-2022 Prostate specific antigen measurement PSA Level [facility] Start: 07-05-2022 FUV, Provider: Phyllis Mae, Status: Pen, Time: 1:45 PM FUV, Provider: Phyllis Mae, Status: Pen, Time: 1:45 PM [facility] Work [facility]: Start: 06-30-2022 Influenza vaccination Sequential Influenza Vaccine (#1) [facility] Start: 06-28-2022 FUV, Provider: Phyllis Mae, Status: Pen, Time: 11:30 AM FUV, Provider: Phyllis Mae, Status: Pen, Time: 11:30 AM [facility] Work Phone: Start: 06-16-2022 End: 06-16-2022 Patient encounter procedure 06/16/2022 Office Visit Neurology Deshaun Rodrigues MD [facility] [address] [address] [facility] Start: 06-13-2022 Hemoglobin A1c measurement A1C [facility] Start: 06-10-2022 End: 06-10-2022 Patient encounter procedure 06/10/2022 Office Visit Endocrinology Erica Gardner PA-C [address] [facility] [place] [address] [facility] Start: 05-17-2022 End: 05-17-2022 Patient encounter procedure 05/17/2022 Office Visit Endocrinology David Waters, RAQUEL [address] [place] [address] [facility] Start: 05-13-2022 [email or web address], Provider: Quin Li, Status: Pen, Time: 11:45 AM PTFUADULT4, Provider: Quin Li, Status: Pen, Time: 11:45 AM [facility] [place] [address] [place] Work Phone: Start: 05-11-2022 PTRECHECKA, Provider: Lorena Ochoa, Status: Pen, Time: 11:15 AM PTRECHECKA, Provider: Lorena Ochoa, Status: Pen, Time: 11:15 AM [facility] [place] [address] [place] Work Phone: Start: 05-09-2022 PTFUADULT4, Provider: Quin Li, Status: Pen, Time: 12:15 PM PTFUADULT4, Provider: Quin Li, Status: Pen, Time: 12:15 PM [facility] [place] [address] [place] Work Phone: Start: 05-06-2022 PTFUADULT4, Provider: Quin Li, Status: Pen, Time: 2:00 PM PTFUADULT4, Provider: Quin Li, Status: Pen, Time: 2:00 PM [facility] [place] [address] [place] Work Phone: Start: 05-04-2022 PTFUADULT4, Provider: Quin Li, Status: Pen, Time: 2:00 PM PTFUADULT4, Provider: Quin Li, Status: Pen, Time: 2:00 PM [facility] [address] Work Phone: Start: 04-29-2022 PTFUADULT4, Provider: Quin Li, Status: Pen, Time: 2:00 PM PTFUADULT4, Provider: Quin Li, Status: Pen, Time: 2:00 PM [facility] [address] Work Phone: Start: 04-27-2022 Depression screening using PHQ-9 (Patient Health Questionnaire 9) score [facility] Start: 04-25-2022 End: 04-25-2022 Patient encounter procedure 04/25/2022 Office Visit Cardiology Aquiles Bay MD [address] [place] [address] [facility] Start: 04-25-2022 PTFUADULT4, Provider: Quin Li, Status: Pen, Time: 11:30 AM PTFUADULT4, Provider: Quin Li, Status: Pen, Time: 11:30 AM [facility] [address] Work Phone: Start: 04-22-2022 PTFUADULT4, Provider: Quin Li, Status: Pen, Time: 1:15 PM PTFUADULT4, Provider: Quin Li, Status: Pen, Time: 1:15 PM [facility] [address] Work Phone: Start: 04-06-2022 Microalbumin measurement, urine, quantitative Urine Microalbumin [facility] Start: 04-06-2022 PTEVALADUL, Provider: Lorena Ochoa, Status: Pen, Time: 9:30 AM PTEVALADUL, Provider: Lorena Ochoa, Status: Pen, Time: 9:30 AM [facility] Work Phone: Start: 03-16-2022 Microalbumin measurement, urine, quantitative Urine Microalbumin [facility] Start: 03-15-2022 PTEVALAJANINE, Provider: Rayo Herrera, Status: Pen, Time: 11:30 AM PTEVARIELLE, Provider: aRyo Herrera, Status: Pen, Time: 11:30 AM [facility] Work Phone: Start: 03-12-2022 Pneumococcal vaccination [facility] Start: 03-12-2022 Pneumococcal Vaccine: 65+ Years (2 - PCV) Pneumococcal Vaccine: 65+ Years (2 - PCV) [facility] Start: 03-12-2022 Pneumococcal Vaccine: 65+ Years (2 of 2 - PCV) Pneumococcal Vaccine: 65+ Years (2 of 2 - PCV) [facility] Start: 03-12-2022 Pneumococcal Vaccine: Age 50+ (2 of 2 - PCV) Pneumococcal Vaccine: Age 50+ (2 of 2 - PCV) [facility] Start: 03-12-2022 Pneumococcal Vaccine: Age 65+ (2 - PCV) Pneumococcal Vaccine: Age 65+ (2 - PCV) [facility] Start: 03-12-2022 Pneumococcal Vaccine: Age 65+ (2 of 2 - PCV) Pneumococcal Vaccine: Age 65+ (2 of 2 - PCV) [facility] Start: 03-12-2022 Pneumococcal Vaccine: Age 65+ (2 of 2 - PCV13) Pneumococcal Vaccine: Age 65+ (2 of 2 - PCV13) [facility] Start: 02-01-2022 Hemoglobin A1c measurement A1C [facility] Start: 01-25-2022 FUV, Provider: Phyllis Mae, Status: Giacomo, Time: 1:30 PM FUV, Provider: Phyllis Mae, Status: Pen, Time: 1:30 PM [facility] Work Phone: Start: 01-04-2022 Patient encounter procedure MCRANNUAL, Provider: Phyllis Mae, Status: Giacomo, Time: 1:30 PM [facility] Work Phone: Start: 12-29-2021 COVID-19 Vaccine (3 - Booster for Ryan series) COVID-19 Vaccine (3 - Booster for Ryan series) [facility] Start: 11-03-2021 GURU, Provider: Lorena Ochoa, Status: Pen, Time: 12:30 PM GURU, Provider: Lorena Ochoa, Status: Pen, Time: 12:30 PM [facility] [address] Work Phone: Start: 11-01-2021 End: 11-01-2021 Patient encounter procedure 11/01/2021 Office Visit Endocrinology Santana Orosco PA-C [address] [place], [place] [id number] [facility] Start: 10-28-2021 End: 08-04-2022 Complete blood count with white cell differential, manual CBC and Differential Lab Routine Type 2 diabetes mellitus with stage 3b chronic kidney disease, with long-term current use of insulin (HCC) Expected: 10/28/2021, Expires: 08/04/2022 [facility] Comment on above: Expected: 10/28/2021, Expires: 2 Start: 10-28-2021 End: 08-04-2022 Comprehensive metabolic 2000 panel - Serum or Plasma Comprehensive Metabolic Panel Lab Routine Type 2 diabetes mellitus with stage 3b chronic kidney disease, with long-term current use of insulin (HCC) Expected: 10/28/2021, Expires: 08/04/2022 [facility] Work Phone: Comment on above: Expected: 10/28/2021, Expires: 2 Start: 10-28-2021 Hemoglobin A1c measurement A1C [facility] Start: 10-28-2021 End: 08-04-2022 Hemoglobin A1c/Hemoglobin.total in Blood Hemoglobin A1c Lab Routine Type 2 diabetes mellitus with stage 3b chronic kidney disease, with long-term current use of insulin (HCC) Expected: 10/28/2021, Expires: 08/04/2022 [facility] Comment on above: Expected: 10/28/2021, Expires: 2 Start: 10-28-2021 End: 08-04-2022 Lipid 1996 panel - Serum or Plasma Lipid Panel Lab Routine Type 2 diabetes mellitus with stage 3b chronic kidney disease, with long-term current use of insulin (HCC) Expected: 10/28/2021, Expires: 08/04/2022 [facility] Comment on above: Expected: 10/28/2021, Expires: 2 Start: 10-28-2021 End: 08-03-2022 Microalbumin measurement, urine, quantitative Microalbumin/Creatinine Ratio, UR Random Lab Routine Type 2 diabetes mellitus with stage 3b chronic kidney disease, with long-term current use of insulin (HCC) Expected: 10/28/2021, Expires: 08/03/2022 [facility] Comment on above: Expected: 10/28/2021, Expires: 2 Start: 10-28-2021 End: 08-04-2022 Thyrotropin [Units/volume] in Serum or Plasma TSH Lab Routine Type 2 diabetes mellitus with stage 3b chronic kidney disease, with long-term current use of insulin (HCC) Expected: 10/28/2021, Expires: 08/04/2022 [facility] Comment on above: Expected: 10/28/2021, Expires: 2 Start: 10-28-2021 End: 08-04-2022 Thyroxine (T4) free [Mass/volume] in Serum or Plasma T4, Free Lab Routine Type 2 diabetes mellitus with stage 3b chronic kidney disease, with long-term current use of insulin (HCC) Expected: 10/28/2021, Expires: 08/04/2022 [facility] Comment on above: Expected: 10/28/2021, Expires: 2 Start: 10-26-2021 COVID-19 Vaccine (3 - Booster for Ryan series) COVID-19 Vaccine (3 - Booster for Ryan series) [facility] Start: 10-25-2021 PTFUADULT4, Provider: Bib Payne, Status: Pen, Time: 11:30 AM PTFUADULT4, Provider: Bib Payne, Status: Pen, Time: 11:30 AM [facility] [address] Work Phone: Start: 10-18-2021 PTFUADULT4, Provider: Bib Payne, Status: Pen, Time: 11:30 AM PTFUADULT4, Provider: Bib Payne, Status: Pen, Time: 11:30 AM [facility] [address] Work Phone: Start: 10-15-2021 PTFUADULT4, Provider: Bib Payne, Status: Pen, Time: 1:15 PM PTFUADULT4, Provider: Bib Payne, Status: Pen, Time: 1:15 PM [facility] [place] [address] [place] Work Phone: Start: 10-08-2021 PTFUADULT4, Provider: Bib Payne, Status: Pen, Time: 12:30 PM PTFUADULT4, Provider: Bib Payne, Status: Pen, Time: 12:30 PM [facility] [place] [address] [place] Work Phone: Start: 10-04-2021 FUV, Provider: Phyllis Mae, Status: Pen, Time: 11:30 AM FUV, Provider: Phyllis Mae, Status: Pen, Time: 11:30 AM [facility] [address] Work Phone: Start: 09-29-2021 PTRECHECKA, Provider: Kirstie Bernal, Status: Pen, Time: 11:15 AM PTRECHECKA, Provider: Kirstie Bernal, Status: Pen, Time: 11:15 AM [facility] [address] Work Phone: Start: 09-27-2021 End: 09-27-2021 Patient encounter procedure 09/27/2021 Office Visit Pulmonology Tosha Prescott, [address] [place] [address] [facility] Start: 09-24-2021 PTFUADULT4, Provider: Bib Payne, Status: Pen, Time: 12:30 PM PTFUADULT4, Provider: Bib Payne, Status: Pen, Time: 12:30 PM [facility] [place] Work Phone: Start: 09-22-2021 PTFUADULT4, Provider: Bib Panye, Status: Pen, Time: 12:30 PM PTFUADULT4, Provider: Bib Payne, Status: Pen, Time: 12:30 PM [facility] [place] Work Phone: Start: 09-20-2021 PTFUADULT4, Provider: Bib Payne, Status: Pen, Time: 12:15 PM PTFUADULT4, Provider: Bib Payne, Status: Pen, Time: 12:15 PM [facility] [place] Work Phone: Start: 09-17-2021 PTFUADULT4, Provider: Bib Payne, Status: Pen, Time: 12:30 PM PTFUADULT4, Provider: Bib Payne, Status: Pen, Time: 12:30 PM [facility] [place] Work Phone: Start: 09-16-2021 Hemoglobin A1c measurement [address] Start: 09-15-2021 PTFUADULT4, Provider: Bib Payne, Status: Pen, Time: 1:15 PM PTFUADULT4, Provider: Bib Payne, Status: Pen, Time: 1:15 PM [facility] [place] Work Phone: Start: 09-14-2021 FUV, Provider: Phyllis Mae, Status: Pen, Time: 1:15 PM FUV, Provider: Phyllis Mae, Status: Pen, Time: 1:15 PM [facility] Work Phone: Start: 09-13-2021 PTFUADULT4, Provider: Bib Payne, Status: Pen, Time: 12:15 PM PTFUADULT4, Provider: Bib Payne, Status: Pen, Time: 12:15 PM [facility] [place] Work Phone: Start: 09-10-2021 PTFUADULT4, Provider: Bib Payne, Status: Pen, Time: 12:30 PM PTFUADULT4, Provider: Bib Payne, Status: Pen, Time: 12:30 PM [facility] Work Phone: Start: 09-08-2021 PTFUADULT4, Provider: Bib Payne, Status: Pen, Time: 1:15 PM PTFUADULT4, Provider: Bib Payne, Status: Pen, Time: 1:15 PM [facility] Start: 09-06-2021 PTFUADULT4, Provider: Bib Payne, Status: Pen, Time: 12:15 PM PTFUADULT4, Provider: Bib Payne, Status: Pen, Time: 12:15 PM [facility] Work [facility]: Start: 09-03-2021 PTFUADULT4, Provider: Bib Payne, Status: Pen, Time: 12:30 PM PTFUADULT4, Provider: Bib Payne, Status: Pen, Time: 12:30 PM [facility] Work [facility]: Start: 09-01-2021 PTFUADULT4, Provider: Bib Payne, Status: Pen, Time: 12:30 PM PTFUADULT4, Provider: Bib Payne, Status: Pen, Time: 12:30 PM [facility] Work [facility]: Start: 08-30-2021 PTFUADULT4, Provider: Bib Payne, Status: Pen, Time: 12:15 PM PTFUADULT4, Provider: Bib Payne, Status: Pen, Time: 12:15 PM [facility] Work Phone: Start: 08-27-2021 PTFUADULT4, Provider: Bib Payne, Status: Pen, Time: 10:45 AM PTFUADULT4, Provider: Bib Payne, Status: Pen, Time: 10:45 AM [facility] Work Phone: Start: 08-25-2021 PTFUADULT4, Provider: Bib Payne, Status: Pen, Time: 12:30 PM PTFUADULT4, Provider: Bib Payne, Status: Pen, Time: 12:30 PM [facility] Work Phone: Start: 08-23-2021 PTFUADULT4, Provider: Bib Payne, Status: Pen, Time: 12:00 PM PTFUADULT4, Provider: Bib Payne, Status: Pen, Time: 12:00 PM [facility] Work Phone: Start: 08-20-2021 PTFUADULT4, Provider: Bib Payne, Status: Pen, Time: 10:00 AM PTFUADULT4, Provider: Bib Payne, Status: Pen, Time: 10:00 AM [facility] Work Phone: Start: 08-17-2021 EPV, Provider: Phyllis Mae, Status: Pen, Time: 12:30 PM EPV, Provider: Phyllis Mae, Status: Pen, Time: 12:30 PM [facility] Work Phone: Start: 08-16-2021 PTFUADULT4, Provider: Bib Payne, Status: Pen, Time: 12:15 PM PTFUADULT4, Provider: Bib Payne, Status: Pen, Time: 12:15 PM [facility] Work Phone: Start: 08-04-2021 PTEVALADUL, Provider: Arturo Galvez, Status: Pen, Time: 1:15 PM PTEVALADUL, Provider: Arturo Galvez, Status: Pen, Time: 1:15 PM [facility] Work Phone: Start: 08-03-2021 Diabetic foot examination Foot Exam [facility] Start: 07-28-2021 Albumin DL <= 20 mg/L (U) [Mass/Vol] Urine Microalbumin [facility] Start: 07-28-2021 Microalbumin measurement, urine, quantitative Urine Microalbumin [facility] Start: 07-14-2021 HbA1c (Bld) [Mass fraction] A1C [facility] Start: 07-14-2021 Hemoglobin A1c measurement A1C [facility] Start: 07-12-2021 FUV, Provider: Phyllis Mae, Status: Pen, Time: 11:30 AM FUV, Provider: Phyllis Mae, Status: Pen, Time: 11:30 AM [facility] [place] Work Phone: Start: 07-06-2021 FUV, Provider: Phyllis Mae, Status: Pen, Time: 2:00 PM FUV, Provider: Phyllis Mae, Status: Pen, Time: 2:00 PM [facility] Work Phone: Start: 07-01-2021 End: 07-01-2021 Follow-up encounter 07/01/2021 Follow-Up Sports Medicine Dylon Galindo MD [address] [place], [place] [id number] [facility] Start: 06-30-2021 Influenza vaccination Sequential Influenza Vaccine (#1) [facility] Start: 06-24-2021 NPV, Provider: Anya Greenwood, Status: Pen, Time: 11:00 AM NPV, Provider: Anya Greenwood, Status: Pen, Time: 11:00 AM [facility] Work Phone: Start: 06-17-2021 FUV, Provider: Jin Robbins II, Status: Pen, Time: 11:00 AM FUV, Provider: Jin Robbins II, Status: Pen, Time: 11:00 AM [facility] Work Phone: Start: 05-25-2021 Low dose computed tomography of chest without contrast Low-dose CT Lung Cancer Screen [facility] Start: 05-25-2021 Screening for malignant neoplasm of lung Low-dose CT Lung Cancer Screen [facility] Start: 05-13-2021 End: 05-13-2021 Follow-up encounter 05/13/2021 Follow-Up Sports Medicine Dylon Galindo MD [address] [place] [address] [phone] [facility] Start: 04-19-2021 NPV, Provider: Jin Robbins II, Status: Pen, Time: 2:45 PM NPV, Provider: Jin Robbins II, Status: Pen, Time: 2:45 PM [facility] Work Phone: Start: 04-19-2021 HbA1c (Bld) [Mass fraction] A1C [facility] Start: 04-14-2021 Screening for malignant neoplasm of lung Low-dose CT Lung Cancer Screen [facility] Start: 03-24-2021 End: 03-24-2021 Patient encounter procedure 03/24/2021 Office Visit Sports Medicine Dylon Galindo MD [address] [place] [address] [phone] [facility] Start: 02-02-2021 End: 02-02-2021 Office Visit 02/02/2021 Office Visit Endocrinology Erica Gardner PA-C [address] [place] [address] [phone] [facility] Start: 01-29-2021 COVID-19 Vaccine (Ryan SARS-CoV-2 Vaccination) COVID-19 Vaccine (Ryan SARS-CoV-2 Vaccination) [facility] Start: 01-25-2021 HbA1c (Bld) [Mass fraction] A1C [facility] Start: 12-27-2020 Diabetic foot examination Foot Exam [facility] Start: 12-11-2020 Albumin DL <= 20 mg/L (U) [Mass/Vol] URINE MICROALBUMIN [facility] Start: 12-08-2020 End: 12-08-2020 Appointment [facility] Start: 11-03-2020 End: 08-03-2021 Comprehensive metabolic 2000 panel Comprehensive Metabolic Panel Lab Routine Inadequately controlled diabetes mellitus (HCC) Expected: 11/03/2020 (Approximate), Expires: 08/03/2021 [facility] Comment on above: Expected: 11/03/2020 (Approximate), Expi res: 08/03/2021 Start: 11-03-2020 End: 08-03-2021 HbA1c (Bld) [Mass fraction] Hemoglobin A1c Lab Routine Inadequately controlled diabetes mellitus (HCC) Expected: 11/03/2020 (Approximate), Expires: 08/03/2021 [facility] Comment on above: Expected: 11/03/2020 (Approximate), Expi res: 08/03/2021 Start: 11-03-2020 End: 08-03-2021 Lipid 1996 panel Lipid Panel Lab Routine Inadequately controlled diabetes mellitus (HCC) Dyslipidemia Expected: 11/03/2020 (Approximate), Expires: 08/03/2021 [facility] Comment on above: Expected: 11/03/2020 (Approximate), Expi res: 08/03/2021 Start: 11-03-2020 End: 11-03-2020 Office Visit 11/03/2020 Office Visit Endocrinology David Waters, [employer] [place] [address] [place] [address] [phone] [facility] Start: 10-01-2020 HbA1c (Bld) [Mass fraction] A1C [facility] Start: 07-03-2020 End: 07-03-2020 Office Visit 07/03/2020 Office Visit Endocrinology Erica Gardner PA-C [address] [place] [address] [phone] [facility] Start: 06-30-2020 Influenza vaccination given [facility] Start: 06-10-2020 HbA1c (Bld) [Mass fraction] A1C [facility] Start: 05-25-2020 End: 05-25-2020 Appointment 05/25/2020 Appointment Radiology Lola Barksdale MD [address] [place] [address] [phone] [facility] Scan Start: 05-19-2020 Xray Chest 2 View PA + Lateral [facility] Work Phone: Start: 04-20-2020 End: 04-20-2020 Office Visit 04/20/2020 Office Visit Cardiology Aquiles Bay MD [address] [address] [phone] [facility] Start: 03-31-2020 End: 03-31-2020 Office Visit 03/31/2020 Office Visit Endocrinology David Waters, [employer] [place] [address] [address] [phone] [facility] Start: 02-26-2020 End: 02-26-2020 Office Visit 02/26/2020 Office Visit Cardiology Aquiles Bay MD [address] [address] [phone] [facility] Start: 01-23-2020 End: 01-23-2020 Low dose computed tomography of thorax CT Lung Cancer Screening Routine Cigarette Smoker Screening for malignant neoplasm of respiratory organ Expected: 01/23/2020, Expires: 01/23/2020 [facility] Comment on above: Expected: 01/23/2020, Expires: 0 Start: 01-23-2020 End: 01-23-2020 Office Visit 01/23/2020 Office Visit Pulmonology Lola Barksdale MD [address] [place] [address] [phone] [facility] Start: 01-22-2020 Screening for malignant neoplasm of lung Low-dose CT Lung Cancer Screen [facility] Start: 01-20-2020 End: 01-20-2020 Appointment 01/20/2020 Appointment Radiology Lola Barksdale MD [address] [place] [address] [phone] [facility] Start: 12-27-2019 End: 12-27-2019 Office Visit 12/27/2019 Office Visit Endocrinology David Waters CNP [address] [address] [phone] [facility] Start: 12-04-2019 End: 12-04-2019 Appointment [facility] Start: 12-03-2019 End: 12-03-2019 Appointment [facility] Start: 11-12-2019 Prostate specific antigen measurement PROSTATE CANCER SCREENING DISCUSSION [facility] Work Phone: Start: 07-25-2019 End: 07-25-2019 Office Visit 07/25/2019 Office Visit Pulmonology Lola Barksdale MD [address] [place] [address] [phone] [facility] Start: 07-02-2019 Albumin DL <= 20 mg/L (U) [Mass/Vol] URINE MICROALBUMIN [facility] Start: 06-30-2019 Influenza vaccination given SEQUENTIAL INFLUENZA VACCINE (#1) [facility] Start: 05-27-2019 End: 01-26-2020 Complete blood count with white cell differential, manual CBC and Differential Routine Anemia, unspecified type Monoclonal gammopathy Expected: 05/27/2019 (Approximate), Expires: 01/26/2020 [facility] Comment on above: Expected: 05/27/2019 (Approximate), Expi res: 01/26/2020 Start: 05-27-2019 End: 01-25-2020 Reticulocytes panel - Blood Reticulocyte Routine Anemia, unspecified type Monoclonal gammopathy Expected: 05/27/2019 (Approximate), Expires: 01/25/2020 [facility] Comment on above: Expected: 05/27/2019 (Approximate), Expi res: 01/25/2020 Start: 05-27-2019 End: 05-27-2019 Office Visit 05/27/2019 Office Visit Oncology Guillermo Branham MD [facility] [place] [address] [phone] [facility] Start: 05-12-2019 Hemoglobin A1c/Hemoglobin.total mass fraction (Bld) [facility] Start: 04-25-2019 Albumin DL <= 20 mg/L mass conc (U) URINE MICROALBUMIN [facility] Start: 01-26-2019 End: 09-29-2019 Cobalamin (Vitamin B12) mass conc Vitamin B12 Routine Anemia, unspecified type Monoclonal gammopathy Fatigue, unspecified type Expected: 01/26/2019 (Approximate), Expires: 09/29/2019 [facility] Comment on above: Expected: 01/26/2019 (Approximate), Expi res: 09/29/2019 Start: 01-26-2019 End: 09-29-2019 Complete blood count with white cell differential, manual CBC and Differential Routine Anemia, unspecified type Monoclonal gammopathy Fatigue, unspecified type Expected: 01/26/2019 (Approximate), Expires: 09/29/2019 [facility] Comment on above: Expected: 01/26/2019 (Approximate), Expi res: 09/29/2019 Start: 01-26-2019 End: 09-28-2019 Reticulocytes panel - Blood Reticulocyte Routine Anemia, unspecified type Monoclonal gammopathy Fatigue, unspecified type Expected: 01/26/2019 (Approximate), Expires: 09/28/2019 [facility] Comment on above: Expected: 01/26/2019 (Approximate), Expi res: 09/28/2019 Start: 01-26-2019 End: 09-29-2019 Thyrotropin Qn TSH Routine Anemia, unspecif ied type Monoclonal gammopathy Fatigue, unspecified type Expected: 01/26/2019 (Approximate), Expires: 09/29/2019 [facility] Comment on above: Expected: 01/26/2019 (Approximate), Expi res: 09/29/2019 Start: 01-25-2019 End: 01-25-2019 Ambulatory 01/25/2019 Office Visit Oncology Guillermo Branham MD [facility] [place] [address] [facility] Start: 01-22-2019 End: 01-22-2019 Ambulatory 01/22/2019 Office Visit Pulmonology Lola Barksdale MD [address] [place] [address] [phone] [facility] Start: 01-21-2019 Hospital Encounter 01/21/2019 Hospital [facility] Lola Barksdale MD [address] [place] [address] [phone] [facility] Start: 01-14-2019 [facility] [address] [place] [address] [phone] [facility] Start: 11-28-2018 End: 11-28-2018 Office Visit 11/28/2018 Office Visit Cardiology Aquiles Bay MD [address] [address] [phone] Cameron Munguia III, DO [address] [place] [address] [phone] [facility] Start: 11-26-2018 End: 11-26-2018 Appointment 11/26/2018 Appointment Cardiology Aquiles Bay MD [address] [address] [phone] [facility] Start: 10-18-2018 End: 10-18-2018 Ambulatory 10/18/2018 Office Visit Cardiology Aquiles Bay MD [address] [address] [phone] [facility] Start: 09-28-2018 End: 09-28-2018 Ambulatory 09/28/2018 Office Visit Oncology Guillermo Branham MD [address] [place] [address] [phone] (Fax) [facility] Start: 07-25-2018 End: 07-25-2018 Ambulatory 07/25/2018 Office Visit Pulmonology Lola Barksdale MD [address] [place] [address] [phone] [facility] Start: 07-12-2018 End: 07-12-2018 Ambulatory 07/12/2018 Office Visit Oncology Guillermo Branham MD [address] [place] [address] [facility] Start: 06-30-2018 Influenza vaccination SEQUENTIAL INFLUENZA VACCINE (#1) [facility] Start: 05-29-2018 End: 05-29-2018 Ambulatory [facility] Start: 05-10-2018 End: 05-10-2018 Ambulatory 05/10/2018 Office Visit Oncology Guillermo Branham MD [address] [place] [address] [facility] Start: 05-06-2018 End: 01-05-2019 CBC and Differential CBC and Differential Routine Anemia, unspecified type Monoclonal gammopathy Expected: 05/06/2018 (Approximate), Expires: 01/05/2019 [facility] Start: 05-06-2018 End: 01-04-2019 Ferritin Ferritin Routine Anemia, unspecified type Monoclonal gammopathy Expected: 05/06/2018 (Approximate), Expires: 01/04/2019 [facility] Start: 05-06-2018 End: 01-04-2019 Reticulocytes panel - Blood Reticulocyte Routine Anemia, unspecified type Monoclonal gammopathy Expected: 05/06/2018 (Approximate), Expires: 01/04/2019 [facility] Start: 01-17-2018 [facility] Start: 01-04-2018 Ambulatory 01/04/2018 Office Visit Oncology Guillermo Branham MD [address] [place] [id number] [facility] Start: 12-08-2017 End: 09-08-2018 CBC and Differential CBC and Differential Routine Monoclonal gammopathy Abdominal pain, unspecified abdominal location Expected: 12/08/2017 (Approximate), Expires: 09/08/2018 [facility] Work Phone: Start: 12-08-2017 End: 09-07-2018 Immunofixation, Serum Immunofixation, Serum Routin e Monoclonal gammopathy Abdominal pain, unspecified abdominal location Expected: 12/08/2017 (Approximate), Expires: 09/07/2018 [facility] Work Phone: Start: 12-08-2017 End: 09-07-2018 Immunoglobulin Free Light Chains,Blood Immunoglobulin Free Light Chains,Blood Routine Monoclonal gammopathy Abdominal pain, unspecified abdominal location Expected: 12/08/2017 (Approximate), Expires: 09/07/2018 [facility] Work Phone: Start: 12-08-2017 End: 09-07-2018 Protein Electrophoresis, Blood Protein Electrophoresis, Blood Routine Monoclonal gammopathy Abdominal pain, unspecified abdominal location Expected: 12/08/2017 (Approximate), Expires: 09/07/2018 [facility] Work Phone: Start: 12-08-2017 End: 09-07-2018 Reticulocytes panel - Blood Reticulocyte Routine Monoclonal gammopathy Abdominal pain, unspecified abdominal location Expected: 12/08/2017 (Approximate), Expires: 09/07/2018 [facility] Work Phone: Start: 12-07-2017 Ambulatory 12/07/2017 Office Visit Oncology Guillermo Branham MD [address] [place] [address] [phone] [facility] Start: 10-16-2017 Ambulatory 10/16/2017 Office Visit Cardiology [place] MD [address] [address] [facility] Start: 09-07-2017 Ambulatory 09/07/2017 Office Visit Oncology Guillermo Branham MD [address] [place] [address] [phone] [facility] Start: 09-06-2017 Ambulatory 09/06/2017 [facility] David Barksdale, Lola Goldsmith MD [address] [place] [address] [address] [place] [address] [phone] [facility] Start: 08-17-2017 End: 08-18-2018 Cobalamins (Vitamin B12) Vitamin B12 Routine Anemia, unspecified type Monoclonal gammopathy Expected: 08/17/2017, Expires: 08/18/2018 [facility] Work Phone: Start: 08-17-2017 End: 08-18-2018 Comprehensive metabolic panel [AGGREGATE] Comprehensive Metabolic Panel Routine Anemia, unspecified type Monoclonal gammopathy Expected: 08/17/2017, Expires: 08/18/2018 [facility] Work Phone: Start: 08-17-2017 End: 08-17-2018 Ferritin Ferritin Routine Anemia, unspecified type Monoclonal gammopathy Expected: 08/17/2017, Expires: 08/17/2018 [employer] Phone: Start: 08-17-2017 End: 08-18-2018 Folate Folate Routine Anemia, unspecified type Monoclonal gammopathy Expected: 08/17/2017, Expires: 08/18/2018 [facility] Work Phone: Start: 08-17-2017 End: 08-17-2018 Hemoglobin presence in stool Occult Blood Stool Routine Anemia, unspecified type Monoclonal gammopathy Expected: 08/17/2017, Expires: 08/17/2018 [employer] Phone: Start: 08-17-2017 End: 08-17-2018 Immunofixation, Serum Immunofixation, Serum Routin e Anemia, unspecified type Monoclonal gammopathy Expected: 08/17/2017, Expires: 08/17/2018 [facility] Phone: Start: 08-17-2017 End: 08-17-2018 Immunoglobulin Free Light Chains,Blood Immunoglobulin Free Light Chains,Blood Routine Anemia, unspecified type Monoclonal gammopathy Expected: 08/17/2017, Expires: 08/17/2018 [employer] Phone: Start: 08-17-2017 End: 08-17-2018 Protein Electrophoresis, Blood Protein Electrophoresis, Blood Routine Anemia, unspecified type Monoclonal gammopathy Expected: 08/17/2017, Expires: 08/17/2018 [facility] Work Phone: Start: 08-17-2017 End: 08-18-2018 Reticulocytes panel - Blood Reticulocyte Routine Anemia, unspecified type Monoclonal gammopathy Expected: 08/17/2017, Expires: 08/18/2018 [employer] Phone: Start: 08-17-2017 End: 08-17-2018 XR Bone Survey Complete XR Bone Survey Complete Routine Anemia, unspecified type Monoclonal gammopathy Expected: 08/17/2017, Expires: 08/17/2018 [facility] Work Phone: Start: 06-30-2017 Influenza vaccination SEQUENTIAL INFLUENZA VACCINE (#1) [facility] Work Phone: Start: 2014 Abdominal aortic aneurysm screening Abdominal Aortic Aneurysm (AAA) Screening [facility] Start: 2014 Fall risk assessment [facility] Start: 2014 Pneumococcal vaccination [facility] Work Phone: Start: 2014 Ultrasound scan of abdominal aorta ABDOMINAL AORTIC ULTRASOUND [facility] Work Phone: Start: 2009 Hepatitis B Vaccines (1 of 3 - Risk 3-dose series) Hepatitis B Vaccines (1 of 3 - Risk 3-dose series) [facility] Start: 2009 RSV patients and/or patients aged 60+ years (1 - 1-dose 60+ series) RSV patients and/or patients aged 60+ years (1 - 1-dose 60+ series) [facility] Start: 2009 Zoster vacc, sc ZOSTER VACCINE [facility] Work Phone: Start: 1999 Administration of herpes zoster vaccine ZOSTER VACCINES (1 of 2) [facility] Start: 1999 Protein mass conc COLON CANCER SCREENING DISCUSSION [facility] Work Phone: Start: 1999 Screening for malignant neoplasm of colon [facility] Start: 1999 ZOSTER VACCINES (1 of 2) ZOSTER VACCINES (1 of 2) [facility] Start: 1968 Administration of herpes zoster vaccine Zoster Vaccines (1 of 2) [facility] Start: 1968 Hepatitis A Vaccines (1 of 2 - Risk 2-dose series) Hepatitis A Vaccines (1 of 2 - Risk 2-dose series) [facility] Start: 1968 Third diphtheria, tetanus and acellular pertussis (DTaP) vaccination TDAP (ADULT) [facility] Work Phone: Start: 1968 Urine screening for protein Diabetes: Urine Protein Screening [facility] Start: 1968 Zoster Vaccines (1 of 2) Zoster Vaccines (1 of 2) [facility] Start: 1967 Hepatitis C antibody, confirmatory test Hepatitis C Screening [facility] Start: 1967 Hepatitis C screening Hepatitis C Screening [facility] Start: 1967 Tetanus vaccination TETANUS [facility] Work Phone: Start: 1965 COVID-19 Vaccine (1 of 2) COVID-19 Vaccine (1 of 2) [facility] Start: 1961 Adolescent depression screening assessment Depression Screening (PHQ9) [facility] Start: 1961 Depression screening using PHQ-9 (Patient Health Questionnaire 9) score Depression Screening (PHQ9) [facility] Start: 1959 Glaucoma screening [facility] Start: 1959 End: 1959 Diabetic foot examination (regime/therapy) [facility] Start: 1959 End: 1959 Ophthalmic examination and evaluation [facility] Start: 1959 End: 1959 Urine, microalbumin URINE MICROALBUMIN [facility] Work Phone: Start: 1955 Pneumococcal Vaccine: Age 65+ (1 of 4 - PCV13) Pneumococcal Vaccine: Age 65+ (1 of 4 - PCV13) [facility] Start: 1952 History and physical examination, annual for health maintenance Wellness Visit [facility] Start: 1950 Hepatitis A Vaccines (1 of 2 - Risk 2-dose series) Hepatitis A Vaccines (1 of 2 - Risk 2-dose series) [facility] Start: 1949 Colonoscopy COLONOSCOPY [facility] Start: 1949 Depression screening using PHQ-9 (Patient Health Questionnaire 9) score DEPRESSION SCREENING (PHQ9) [facility] Start: 1949 Fall risk assessment Falls Risk Assessment [facility] Start: 1949 Hemoglobin A1c measurement Diabetes: Hemoglobin A1C [facility] Start: 1949 Hepatitis C antibody, confirmatory test [facility] Start: 1949 Medicare Annual Wellness Visit Medicare Annual Wellness Visit (AWV) [facility] Start: 1949 Prostate specific antigen measurement PSA Level [facility] Start: 1949 Protein mass conc COLONOSCOPY [facility] Start: 1949 Screening for malignant neoplasm of colon [facility] Start: 1949 Screening for malignant neoplasm of lung Low-dose CT Lung Cancer Screen [facility] Start: 1949 US scan of abdominal aorta Abdominal Aortic Ultrasound [facility] Start: 1949 End: 1949 HbA1c [facility] Work Phone: Start: 1949 HEPATITIS C SCREENING HEPATITIS C SCREENING [facility] Work Phone: Start: 1949 Low-dose [address] Lung Cancer Screen Low-dose CT Lung Cancer Screen [facility] Work Phone: Start: 1949 Screening colonoscopy COLONOSCOPY [facility] Work Phone: Start: 1949 End: 1949 Tetanus vaccination [facility] Work Phone: Aerobic microbial culture Wound Aerobic Culture Microbiology Routine Ingrown toenail Paronychia of great toe PVD (peripheral vascular disease) (HCC) Tobacco use Xerosis of skin Diabetic foot (HCC) Ordered: 05/14/2024 [facility] Work Phone: Comment on above: Ordered: 05/14/2024 End: 02-01-2021 Carotid artery doppler assessment Carotid Duplex Vascular Ultrasound Routine Left carotid artery stenosis History of carotid endarterectomy 1 Occurrences starting 12/04/2019 until 02/01/2021 [facility] Comment on above: 1 Occurrences starting 12/04/2019 until 02/01/2021 End: 01-27-2020 Carotid artery doppler assessment Carotid Duplex Routine Stenosis of left carotid artery History of right-sided carotid endarterectomy 1 Occurrences starting 11/28/2018 until 01/27/2020 [facility] Comment on above: 1 Occurrences starting 11/28/2018 until 01/27/2020 End: 12-27-2020 Complete blood count with white cell differential, manual CBC and Differential Lab Routine IDDM (insulin dependent diabetes mellitus) (HCC) 1 Occurrences starting 12/27/2019 until 12/27/2020 [facility] Comment on above: 1 Occurrences starting 12/27/2019 until 12/27/2020 End: 05-08-2025 Complete blood count with white cell differential, manual CBC and Differential Lab Routine Type 2 diabetes mellitus with stage 3b chronic kidney disease, with long-term current use of insulin ([facility]) 1 Occurrences starting 05/07/2024 until 05/08/2025 [facility] Work Phone: Comment on above: 1 Occurrences starting 05/07/2024 until 05/08/2025 End: 12-27-2020 Comprehensive metabolic 2000 panel Comprehensive Metabolic Panel Lab Routine IDDM (insulin dependent diabetes mellitus) ([facility]) 1 Occurrences starting 12/27/2019 until 12/27/2020 [facility] Comment on above: 1 Occurrences starting 12/27/2019 until 12/27/2020 End: 01-10-2023 Comprehensive metabolic 2000 panel - Serum or Plasma Comprehensive Metabolic Panel Lab Routine Type 2 diabetes mellitus with stage 3b chronic kidney disease, with long-term current use of insulin ([facility]) 1 Occurrences starting 01/10/2022 until 01/10/2023 [facility] Work Phone: Comment on above: 1 Occurrences starting 01/10/2022 until 01/10/2023 End: 05-08-2025 Comprehensive metabolic 2000 panel - Serum or Plasma Comprehensive Metabolic Panel Lab Routine Type 2 diabetes mellitus with stage 3b chronic kidney disease, with long-term current use of insulin ([facility]) 1 Occurrences starting 05/07/2024 until 05/08/2025 [facility] Comment on above: 1 Occurrences starting 05/07/2024 until 05/08/2025 Doppler ultrasonography of artery of lower limb Segmental Doppler Lower Extremity Arterial Vascular Ultrasound Routine Diabetic foot ([facility]) PVD (peripheral vascular disease) (HCC) Type 2 diabetes mellitus with stage 3b chronic kidney disease, with long-term current use of insulin (HCC) Claudication of lower extremity (HCC) Tobacco use Xerosis of skin Onychodystrophy Ordered: 12/19/2023 [facility] Work Phone: Comment on above: Ordered: 12/19/2023 End: 06-03-2023 Echocardiography Echocardiogram complete Echocardiography Routine GREEN (dyspnea on exertion) 1 Occurrences starting 06/02/2022 until 06/03/2023 [facility] Work Phone: Comment on above: 1 Occurrences starting 06/02/2022 until 06/03/2023 End: 12-27-2020 Free T4 [Mass/Vol] T4, Free Lab Routine IDDM (insulin dependent diabetes mellitus) (HCC) 1 Occurrences starting 12/27/2019 until 12/27/2020 [facility] Comment on above: 1 Occurrences starting 12/27/2019 until 12/27/2020 H/O: surgery History of hand surgery [facility] End: 12-27-2020 HbA1c (Bld) [Mass fraction] Hemoglobin A1c Lab Routine IDDM (insulin dependent diabetes mellitus) (HCC) 1 Occurrences starting 12/27/2019 until 12/27/2020 [facility] Comment on above: 1 Occurrences starting 12/27/2019 until 12/27/2020 End: 01-10-2023 Hemoglobin A1c/Hemoglobin.total in Blood Hemoglobin A1c Lab Routine Type 2 diabetes mellitus with stage 3b chronic kidney disease, with long-term current use of insulin ([facility]) 1 Occurrences starting 01/10/2022 until 01/10/2023 [facility] Comment on above: 1 Occurrences starting 01/10/2022 until 01/10/2023 End: 05-08-2025 Hemoglobin A1c/Hemoglobin.total in Blood Hemoglobin A1c Lab Routine Type 2 diabetes mellitus with stage 3b chronic kidney disease, with long-term current use of insulin ([facility]) 1 Occurrences starting 05/07/2024 until 05/08/2025 [facility] Comment on above: 1 Occurrences starting 05/07/2024 until 05/08/2025 History of cardiovascular surgery History of endarterectomy [facility] History of colonoscopy History of colonoscopy [facility] History of repair of musculotendinous cuff of shoulder History of repair of rotator cuff [facility] End: 06-10-2021 Incentive spirometry Incentive spirometry Respiratory Care Routine Closed fracture of multiple ribs of left side, initial encounter 1 Occurrences starting 06/10/2020 until 06/10/2021 [facility] Comment on above: 1 Occurrences starting 06/10/2020 until 06/10/2021 End: 12-27-2020 Lipid 1996 panel Lipid Panel Lab Routine IDDM (insulin dependent diabetes mellitus) (HCC) 1 Occurrences starting 12/27/2019 until 12/27/2020 [facility] Comment on above: 1 Occurrences starting 12/27/2019 until 12/27/2020 Low dose computed tomography of thorax CT Lung Cancer Screening Imaging Routine Screening for malignant neoplasm of respiratory organ Cigarette Smoker 05/25/2020 12:53 PM EDT [facility] End: 01-29-2020 Measurement of segmental blood pressure of artery of lower limb using doppler ultrasonography Segmental Doppler Lower Extremity Arterial W Exercise Routine Stenosis of left iliac artery (HCC) 1 Occurrences starting 11/28/2018 until 01/29/2020 [facility] Comment on above: 1 Occurrences starting 11/28/2018 until 01/29/2020 End: 04-05-2024 NM Brain Datscan SPECT CT Single Area Single Day NM Brain Datscan SPECT CT Single Area Single Day Imaging Routine 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HCC) 1 Occurrences starting 04/05/2023 until 04/05/2024 [facility] Work Phone: Comment on above: 1 Occurrences starting 04/05/2023 until 04/05/2024 Past history of procedure History of esophagogastroduodenoscopy (EGD) [facility] Patient Education [facility] Work Phone: End: 09-09-2025 SPECT Heart perfusion NM Myocardial Perfusion Multiple SPECT Imaging Routine Chest pain, unspecified type History of CVA (cerebrovascular accident) 1 Occurrences starting 09/09/2024 until 09/09/2025 [facility] Work Phone: Comment on above: 1 Occurrences starting 09/09/2024 until 09/09/2025 Standard chest X-ray XR Chest AP /PA and LAT Imaging APOLINAR 05/27/2019 11:50 AM EDT [facility] End: 05-08-2025 Thyrotropin [Units/volume] in Serum or Plasma TSH Lab Routine Type 2 diabetes mellitus with stage 3b chronic kidney disease, with long-term current use of insulin (HCC) 1 Occurrences starting 05/07/2024 until 05/08/2025 [facility] Comment on above: 1 Occurrences starting 05/07/2024 until 05/08/2025 End: 05-08-2025 Thyroxine (T4) free [Mass/volume] in Serum or Plasma T4, Free Lab Routine Type 2 diabetes mellitus with stage 3b chronic kidney disease, with long-term current use of insulin (HCC) 1 Occurrences starting 05/07/2024 until 05/08/2025 [facility] Comment on above: 1 Occurrences starting 05/07/2024 until 05/08/2025 End: 12-27-2020 TSH Qn TSH Lab Routine IDDM (insuli n dependent diabetes mellitus) (HCC) 1 Occurrences starting 12/27/2019 until 12/27/2020 [facility] Comment on above: 1 Occurrences starting 12/27/2019 until 12/27/2020 Urinalysis Urinalysis Routi ne Anemia, unspecified type Monoclonal gammopathy Ordered: 01/04/2018 [facility] End: 04-14-2020 US ED Fast Scan US ED Fast Scan Imaging STAT One time imaging One time imaging for 1 Occurrences starting 04/14/2020 until 04/14/2020 [facility] Comment on above: One time imaging One time imaging for 1 Occurrences starting 04/14/2020 until 04/14/2020 US ED Fast Scan US ED Fast Scan Imaging STAT 04/14/2020 1:16 PM EDT [facility] NEGATED: Highlighted row has been ruled out! Planned Goals not documented [facility] Work Phone: Immunizations Immunization Date Immunization Notes Care Provider [facility] 12-05-2024 influenza, high dose seasonal, preservative-free Phyllis Mae MD Work Phone: [facility] Work Phone: 02-27-2024 zoster vaccine-recombinant adjuvanted (Shingrix, PF,) 50 mcg/0.5 mL vaccine Phyllis Mae MD Work Phone: [facility] Work Phone: 02-27-2024 pneumoc 20-chris conj- dip cr,PF, (Prevnar 20, PF,) 0.5 mL vaccine Phyllis Mae MD Work Phone: [facility] Work Phone: 02-27-2024 respiratory syncytia l virus, RSV, vaccine, adjuvanted, age 60y+ (Arexvy, PF,) 120 mcg/0.5 mL suspension for reconstitution Phyllis Mae MD Work Phone: [facility] Work Phone: 10-24-2023 Flu vaccine, quadrivalent, high-dose, preservative free, age 65y+ (FLUZONE) Phyllis Mae MD Work Phone: [facility] Work Phone: 08-22-2023 pneumoc 20-chris conj- dip cr,PF, (Prevnar 20, PF,) 0.5 mL vaccine Phyllis Mae MD Work Phone: [facility] Work Phone: 08-22-2023 influenza virus vacc ine, unspecified formulation David Waters [facility] Work Phone: [facility] 09-20-2022 Fluzone High-Dose Quadrivalent 0.7 ML Intramuscular Suspension Prefilled Syringe; Translations: [Fluzone High-Dose Quadrivalent 0.7 ML Intramuscular Suspension Prefilled Syringe] Phyllis Mae Work Phone: [facility] Work Phone: Comment on above: Series: 09-20-2022 influenza, high dose seasonal, preservative-free Phyllis Mae MD Work Phone: [facility] Work Phone: 08-31-2021 Ryan COVID-19 Vac cine 0.5 ML Intramuscular Suspension Phyllisallie Mae Work Phone: [facility] Work Phone: Comment on above: Series: 08-31-2021 Moderna COVID-19 Vac cine 100 MCG/0.5ML Intramuscular Suspension Phyllisallie Mae Work Phone: [facility] Work Phone: 08-24-2021 Fluzone High-Dose Quadrivalent 0.7 ML Intramuscular Suspension Prefilled Syringe; Translations: [Fluzone High-Dose Quadrivalent 0.7 ML Intramuscular Suspension Prefilled Syringe] Phyllis Mae Work Phone: [facility] Work Phone: Comment on above: Series: 08-24-2021 influenza, high dose seasonal, preservative-free Phyllis Mae MD Work Phone: [facility] Work Phone: 03-22-2021 tuberculin skin test ; purified protein derivative solution, intradermal Phyllis Mae MD Work Phone: [facility] Work Phone: 03-12-2021 pneumococcal polysaccharide vaccine, 23 valent Kateryna Yeboah [employer] Work Phone: [facility] 03-12-2021 pneumococcal vaccine , unspecified formulation Kateryna Yeboah [employer] Work Phone: [facility] 03-12-2021 tuberculin skin test ; purified protein derivative solution, intradermal Phyllis Mae MD Work Phone: [facility] Work Phone: 01-01-2021 Ryan SARS-CoV-2 Vaccination Jesus Toribio [facility] 07-20-2020 influenza, injectabl e, quadrivalent, contains preservative Phyllis Mae MD Work Phone: [facility] Work Phone: 07-20-2020 influenza, injectabl e, quadrivalent, preservative free; Translations: [Flulaval Quadrivalent 0.5 ML Intramuscular Suspension Prefilled Syringe] Phyllis Mae [facility] Work Phone: Comment on above: Series: 06-10-2020 tetanus toxoid, redu marcelina diphtheria toxoid, and acellular pertussis vaccine, adsorbed Phyllis Mae Work Phone: [facility] Work Phone: 07-25-2019 influenza, high dose seasonal, preservative-free [place] [facility] 11-12-2018 HEMOGLOBIN A1C [place] [facility] 07-25-2018 influenza, injectable,quadrivalent, preservative free, pediatric Josh Toglilidia [facility] 11-23-2000 influenza virus vacc ine, whole virus Phyllis Mae Work Phone: [facility] Work Phone: Payers Date Payer Category Payer Dual Eligibility Medicare/Medicaid Organization [employer]VANT[employer] [id number] 2024 Medicare HMO [employer] MEDIBLUE ESSENTIAL/PLUS/CONNECT/S [employer]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 [id number] 2024 Medicare [id number] 2024 Self-pay 2019 Medicare [employer]MANA MANAGED M MAR[employer] MCR ADVANTAGE CHOICE PPO xxxxxxxxx 2019-Present xxxxxxxxx [id number] 2019 Medicare [id number] 2019 Medicare PPO HU[employer]NA MCR ADVAN TAGE CHOICE PPO [id number] 2019 Unknown 2019 Medicare [id number] 2018 Medicaid [id number] 3 2018 Medicaid [id number] .[id number] 2017 Medicaid 2017 Medicaid [id number] 2.16.840.1.683374.3.249.1 3 2014 Medicare [id number] 2.16.840.1.387071.3.249.1 3 2014 Medicare MEDICARE MEDICAR E PART A & B xxxxxxxxxxx 2014-Present [place] xxxxxxxxxxx [id number] 2014 Medicare 2014 Medicare [id number] 1949 Unknown [id number] 2.16.840.1.784947.3.579.2 .1949 Unknown [id number] 2.16.840.1.501137.3.579.2 .1949 Unknown [id number] 2.16.840.1.990650.3.579.2 .1949 Unknown [id number] 2.16.840.1.103866.3.579.2 .1949 Unknown [id number] 2.16.840.1.636848.3.579.2 .1949 Unknown [id number] 2.16.840.1.083583.3.579.2 .1949 Unknown [id number] 2.16.840.1.894128.3.579.2 .1949 Unknown [id number] 2.16.840.1.615478.3.579.2 .1949 Unknown [id number] 2.16.840.1.895710.3.579.2 .1949 Unknown [id number] 2.16.840.1.633527.3.579.2 .1949 Unknown [id number] 2.16.840.1.441869.3.579.2 .1949 Unknown [id number] 2.16.840.1.815175.3.579.2 .1949 Unknown [id number] 2.16.840.1.292496.3.579.2 .1949 Unknown [id number] 2.16.840.1.568442.3.579.2 .1949 Unknown [id number] 2.16840.1.099124.3.579.2 .900 1949 Unknown [id number] 2.16.840.1.110221.3.579.2 .1068 1949 Unknown [id number] 2.16.840.1.415576.3.579.2 .1068 1949 Unknown [id number] 2.16.840.1.744283.3.579.2 .1068 1949 Unknown [id number] 2.16.840.1.533865.3.579.2 .1068 1949 Unknown [id number] 2.16.840.1.964238.3.579.2 .1069 1949 Unknown [id number] 2.16.840.1.598497.3.579.2 .1069 1949 Unknown [id number] 2.16.840.1.422355.3.579.2 .356 1949 Unknown [id number] 2.16.840.1.968746.3.579.2 .356 1949 Unknown [id number] 2.16.840.1.483496.3.579.2 .356 1949 Unknown [id number] 2.16.840.1.870058.3.579.2 .356 1949 Unknown [id number] 2.16.840.1.766135.3.579.2 .356 1949 Unknown [id number] 2.16.840.1.557166.3.579.2 .1243 1949 Unknown [id number] 2.16.840.1.434804.3.579.2 .1949 Unknown [id number] 2.16.840.1.253234.3.579.2 .1949 Unknown [id number] 2.16.840.1.815657.3.579.2 .1949 Unknown [id number] 2.16.840.1.768240.3.579.2 .1949 Unknown [id number] 2.16.840.1.722847.3.579.2 .90 1949 Unknown [id number] 2.16.840.1.244085.3.579.2 .90 1949 Unknown [id number] 2.16.840.1.731531.3.579.2 .90 1949 Unknown [id number] 2.16.840.1.332917.3.579.2 .1949 Unknown [id number] 2.16.840.1.495877.3.579.2 .1949 Unknown [id number] 2.16.840.1.801741.3.579.2 .1950 Unknown [id number] 2.16.840.1.874760.3.579.2 .1950 Unknown [id number] 2.16.840.1.423518.3.579.2 .1244 1950 Unknown [id number] 2.840.1.031875.3.579.2 .1244 1950 Unknown [id number] 2.840.1.754660.3.579.2 .1244 1950 Unknown [id number] 2.840.1.467287.3.579.2 .1244 1950 Unknown [id number] 2.840.1.976942.3.579.2 .1244 1950 Unknown [id number] 2.840.1.425515.3.579.2 .1950 Unknown [id number] 2.840.1.231502.3.579.2 .1950 Unknown [id number] 2.840.1.407983.3.579.2 .1950 Unknown [id number] 2.16840.1.998874.3.579.2 .1950 Unknown [id number] 2.16.840.1.746175.3.579.2 .1950 Unknown [id number] 2.16.840.1.488311.3.579.2 .1950 Unknown [id number] 2.16840.1.991374.3.579.2 .903 1950 Unknown [id number] 2..840.1.909654.3.579.2 .1950 Unknown [id number] 2.16.840.1.291846.3.579.2 .1950 Unknown [id number] 2..840.1.900378.3.579.2 .1950 Unknown [id number] 2.840.1.491024.3.579.2 .1950 Unknown [id number] 2.840.1.912114.3.579.2 .1950 Unknown [id number] 2.840.1.834613.3.579.2 .1243 1950 Unknown [id number] 12.15.830.1.188006.3.579.2 .1243 1950 Unknown [id number] .840.1.137215.3.579.2 .1243 1950 Unknown [id number] 12.15.830.1.646431.3.579.2 .1244 Medicare xxxxxxxxxx 840.1.186013.3.249.1 3 Unknown [id number] 840.1.976714.3.579.2 .462 Unknown [id number] 840.1.735600.3.579.2 .462 Unknown [id number] 840.1.717297.3.579.2 .462 Unknown [id number] .840.1.359922.3.579.2 .462 Unknown [id number] 2.840.1.898710.3.579.2 .462 Unknown [id number] 2.840.1.401898.3.579.2 .462 Unknown [id number] 2.16.840.1.583896.3.579.2 .462 Unknown [id number] 2.16.840.1.233557.3.579.2 .462 Unknown [id number] 2.16.840.1.521089.3.579.2 .462 Unknown [id number] 2.16.840.1.782581.3.579.2 .462 Unknown [id number] 2.16.840.1.104222.3.579.2 .462 Unknown [id number] 2.16.840.1.294767.3.579.2 .462 Unknown [id number] 2.16.840.1.715967.3.579.2 .462 Unknown [id number] 2.16.840.1.645929.3.579.2 .462 Unknown [id number] 2.16.840.1.695228.3.579.2 .462 Unknown [id number] 2.16.840.1.701219.3.579.2 .462 Social History Date Type Detail Facility Start: 10-30-1955 End: 10-03-2024 Tobacco smoking status KSIS Current every day smoker [facility] Work Phone: Start: 01-04-2018 End: 02-28-2023 Cigarettes smoked current (pack per day) - Reported [facility] Work Phone: Start: 1950 Sex Assigned At Not on file [facility] Work Phone: Start: 10-30-1955 History of tobacco use Cigarette Smoker [facility] Start: 07-10-2018 End: 03-17-2022 Tobacco Comment Former 3-4 ppd 40 years [facility] Start: 05-24-2017 Alcohol Comment occasional [facility] Start: 10-25-2019 End: 01-02-2025 Alcohol intake Current drinker of alcohol (finding) [facility] Exposure to SARS-CoV-2 (event) Unable to assess [facility] Start: 12-31-2021 End: 12-05-2024 Exposure to SARS-CoV-2 (event) Not sure [facility] Start: 08-31-2020 End: 10-03-2024 Tobacco use and exposure Never used [facility] Tobacco smoking consumption unknown [facility] Start: 04-01-2019 End: 03-07-2023 Alcohol intake Ex-drinker (finding) [facility] Start: 02-28-2023 End: 03-07-2023 Tobacco use panel [facility] Work Phone: Within the last year , [...] got money to buy more. Never true [facility] Start: 09-28-2018 Gender identity Identifies as male gender (finding) [facility] Start: 09-28-2018 Sexual orientation Heterosexual (fin ding) [facility] Start: 08-22-[address] [facility] Work Phone: Start: 01-07-2025 End: 01-29-2025 Sex Male (finding) [facility] Start: 1950 Sex Assigned At Male [facility] Start: 04-10-2025 Tobacco smoking status NHIS Ex-smoker (finding) [facility] NEGATED: Highlighted row - - [facility] Work Phone: Medical Equipment Procedure Code Equipment Code Equipment Origin al Text Equipment Identifier Dates [id number] Start: 10-29-2018 End: 12-05-2024 USE DIRECTED TWICE DAILY WITH LANTUS DX: DMII/E11.9 [id number] Start: 10-28-2018 End: 12-27-2019 1 (one) strip by Miscellaneous route 4 (four) times a day . [id number] Start: 12-27-2019 Use as directed, 4 times daily. . [id number] Start: 12-27-2019 End: 04-06-2021 Use to check BG 3x daily. DX code E11.9 on insulin . [id number] Start: 01-01-2020 End: 01-13-2021 Accu-Chek Elli Plus [...] DAILY. DX CODE E11.9 ON INSULIN . [id number] Start: 01-13-2021 Nail 11 X 170mm 130deg Fem Short Hilaria Ti Sterl Tfna - [id number] Start: 04-07-2021 Screw 105mm Fen Helical Ti Sterl Tfna - [id number], [id number] FDA Start: 04-07-2021 Screw 5 X 36mm T i Locking T25 Strdrv Im Nail - [id number] Start: 04-07-2021 by Miscellaneous route 4 (four) times a day E11.65 on insulin . [id number] Start: 08-03-2021 End: 09-02-2021 Use as directed QID. E11.65 on QID insulin regimen . [id number] Start: 08-03-2021 Use as directed 4 times daily . [id number] Start: 08-03-2021 Accu-Chek Elli Plus In Vitro Strip TEST TWICE DAILY. Refills: 0 DO Active Lancets Ultra Th in use to check glucose bid Refills: 0 DO Active USE TO CHECK BG 3X DAILY. DX CODE E11.9 ON INSULIN . [id number] Start: 01-10-2022 USE DIRECTED TO CHECK BLOOD SUGAR THREE TIMES DAILY [id number] Start: 02-06-2023 USE DIRECTED 4 TIMES A DAY E11.65 ON INSULIN REGIMEN . [id number] Start: 05-22-2022 Check blood gluc ose 4 times daily . [id number] Start: 11-01-2023 Use to check 2 x daily. DX code E11.65 . [id number] Start: 12-19-2023 by Miscellaneous route Use to check 2 x daily. DX code E11.65 . [id number] End: 12-19-2023 Use to check BG 3 x daily. DX code E11.65 inulin dependent DM (Accu-check Guide strips.) . [id number] Start: 01-04-2024 by Miscellaneous route Use to check BG 3 x daily. DX code E11.65 inulin dependent DM Accu-check Guide strips. . [id number] End: 01-04-2024 Use as directed to inject insulin 5 times per day . [id number] Start: 09-11-2024 Functional Status Date Assessment Result Facility NEGATED: Highlighted row Functional performance Functional status health issues are not documented Disease [facility] Work Phone: Mental Status Date Assessment Result Facility 04-10-2025 Cognitive function Level Of Cons ciousness Awake;Alert;Appropriate ;Follows Commands [facility] Work Phone: NEGATED: Highlighted row Cognitive function [Interpretation] Cognitive status health issues are not documented Disease [facility] Work Phone: Clinical Notes 02-01-2010 to 04-17-2025 Note Date & Type Note Facility 04-17-2025 Evaluation note Diagnosis Onset Date Resolution Closed right ankle fracture inactive April 17, 2025 9:12am [facility] Work Phone: 1(481) 113-426406-12-2025 Radiology Diagnostic study note [facility] Services [address], [place] [address] Ankle min 3 Views MR#: [id number] Acct: [id number] Name: STEVO GERMAIN Rep #: [id number] : 1950 M 75 From: Bradford Mcarthur MD PCP: PHYLLIS MAE Status: REG ER Study:Ankle min 3 Views Date of Exam: Exam# [id number] Ordering Dr: Rakel Willard PROCEDURE: ANKLE MIN [...] inferior calcaneal spurring is seen. Reading Location: [address] CC: PHYLLIS MAE; ALLAN Marquez ~ Certified Alcohol Counselor: Signed [facility]06-12-2025 Radiology Diagnostic study note [facility] Imaging Services [address] [place], [place] [address] Knee 3 Views MR#: [id number] Acct: [id number] Name: STEVO GERMAIN Rep #: [id number] : 1950 M 75 From: Pratibha Pope MD PCP: PHYLLIS MAE Status: REG ER Study:Knee 3 Views Date of Exam: 5 Exam# [id number] Ordering Dr: Rakel Willard PROCEDURE: KNEE 3 [...] 3. Other findings as noted. 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: Albert Inman RVT Referring Physician: BUDDY LIN II ; Indications - non palpable pulses, tobacco use I73.9 - Peripheral vascular disease, unspecified Procedure Description 05930 Limited bilateral noninvasive physiologic studies of upper [...] partially created using voice (more content not included)...[facility] History of Present illness Narrative* BHUMIKA [...] Date: 03/21/2024 3:08 PM 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 . Report Signatures Finalized by Maximino Chapraro MD on 03/21/2024 04:04 PM Assessment/Plan: Patient [...] Foot & Ankle Surgery documented in this [id number] History of Present illness Narrative* Thelma Hankins [...] mcg (200 unit) tablet multivitamin with minerals (kginehgtvmal-none-fjdpy acid) tablet 4. Smoker nicotine (Nicoderm CQ) [...] REFERRAL, . 3 mon [facility]: 1(874) 910-952101-23-2025 History of Present illness Narrative* Radha Antonio RN - 11/21/2024 3:57 PM EST PA requested for Dexcom G7 Sensor [place]asmussen: [id number] Status: Eligibility could not be verified for this patient - patient not found. Please review patient information and re-submit. documented in this [id number] Evaluation + Plan note* Assessment & Plan Note - Phyllis Mae MD - 11/05/2024 1:00 PM EST Associated Problem(s): COPD (chronic obstructive pulmonary disease) (Multi) Orders: tiotropium (Spiriva with HandiHaler) 18 mcg inhalation capsule; Place 1 capsule (18 mcg) into inhaler and inhale once daily. AT THE SAME TIME EVERY DAY VIA HANDIHALER [facility] Work Phone: 1(806) 201-290801-07-2025 Evaluation + Plan note* Assessment & Plan Note - Phyllis Mae MD - 11/05/2024 1:00 PM ESTAssociated Problem(s): Essential tremor Orders: primidone (Mysoline) 50 mg tablet; Take 1 tablet (50 mg) by mouth 2 times a day. [facility] Work Phone: 1(708) 465-431801-07-2025 Evaluation + Plan note* Assessment & Plan Note - Phyllis Mae MD - 11/05/2024 1:00 PM ESTAssociated Problem(s): DM2 (diabetes mellitus, type 2) (Multi) Orders: Lantus Solostar U-100 Insulin 100 unit/mL (3 mL) pen; Inject 5 Units under the skin once daily in the morning. Take as directed per insulin instructions. Comprehensive Metabolic Panel; Future Hemoglobin A1C; Future Albumin-Creatinine Ratio, Urine Random; Future [facility] Work Phone: 1(381) 450-664301-07-2025 Evaluation + Plan note* Assessment & Plan Note - Phyllis Mae MD - 11/05/2024 1:00 PM ESTAssociated Problem(s): Hypertension associated with type 2 diabetes mellitus (Multi) Orders: Comprehensive Metabolic Panel; Future [facility] Work Phone: [phone]) 785-175101-07-2025 Evaluation + Plan note* Assessment & Plan Note - Phyllis Mae MD - 11/05/2024 1:00 PM ESTAssociated Problem(s): Hyperlipemia [facility] Work Phone: 1(759) 633-688601-07-2025 Evaluation + Plan note* Assessment & Plan Note - Phyllis Mae MD - 11/05/2024 1:00 PM ESTAssociated Problem(s): Thrombocytopenia (CMS-HCC) [facility] Work Phone: 1(490) 507-108101-07-2025 Evaluation + Plan note* Assessment & Plan Note - Phyllis Mae MD - 11/05/2024 1:00 PM ESTAssociated Problem(s): Folate deficiency [facility] Work Phone: [phone]) 998-604301-07-2025 Evaluation + Plan note* Assessment & Plan Note - Phyllis Mae MD - 11/05/2024 1:00 PM ESTAssociated Problem(s): CRF (chronic renal failure), stage 3 (moderate) (Multi) [facility] Work Phone: [phone]) 913-802701-07-2025 Evaluation + Plan note* Assessment & Plan Note - Phyllis Mae MD - 11/05/2024 1:00 PM ESTAssociated Problem(s): Fatigue (Resolved 11/05/2024) Orders: Comprehensive Metabolic Panel; Future Magnesium; Future Zinc; Future TSH with reflex to Free T4 if abnormal; Future [facility] Work Phone: 1(690) 304-598101-07-2025 History of Present illness Narrative* Phyllis Mae [...] PROCEDURE REFERRAL, . 1 mon Labs to [facility]. documented in this [facility] Work Phone: 1(320) 898-750501-07-2025 Miscellaneous Notes* Assessment & Plan Note - [...] T4 if abnormal; Future documented in this [facility] Work Phone: 1(246) 354-286512-05-2024 Instructions* Patient Instructions* Jesus Adkins MA - 10/03/2024 2:43 PM EST How to contact your Care Team: Providers: Cameron Munguia III, RAQUEL Amaro PA Nurse: Lien Zheng To reschedule office appointments call Scheduling [phone] In case of an emergency please call 911. When in need of refills please call the phone number listed above. Please include medication name, pharmacy name and specify 30 or 90 day supply Please check with your pharmacy within 24 hours of your request for refill. You must follow up as directed to continue current refills. Thank you! documented in this [id number] NoteAssessment & Plan: 1. History of carotid endarterectomy Carotid Duplex 2. Stenosis of left carotid artery Carotid Duplex 3. Neurogenic claudication 4. PAD (peripheral artery disease) ([facility]) 5. Type 2 diabetes mellitus with stage 3b chronic kidney disease, with long-term current use of insulin ([facility]) 6. Tobacco use Plan: At the present [...] Closed displaced intertrochanteric fracture of right femur ([facility]) 03/08/2021 Closed fracture of left orbital floor ([facility]) 06/10/2020 Closed fracture of multiple ribs of left side 06/10/2020 COPD (chronic obstructive pulmonary disease) ([facility]) Diabetes mellitus ([facility]) TYPE 2 Essential tremor Fall down stairs 04/14/2020 History of pneumonia Hyperlipidemia Hypertension Left carotid artery stenosis 03/30/2016 Leg cramps Leg heaviness MGUS (monoclonal gammopathy of unknown significance) Peptic ulcer disease PVD (peripheral vascular disease) ([facility]) Rhabdomyolysis 2010 Statin intolerance 04/01/2019 ??? Rhabdomyolysis in past. Stroke ([facility]) 2010 R side Past Surgical History: Procedure Laterality Date carotid angio 2010 HAND SURGERY Right 2009 IM NAILING FEMUR Right 04/07/2021 Procedure: RIGHT TFN; Surgeon: Dylon Galindo MD; Location: Main OR; Service: Orthopedic FL TEAEC W/PATCH GRF CAROTID VERTB SUBCLAV NECK [...] a day . fe (more content not included)...[facility] History of Present illness Narrative* Cameron Munguia III, DO - 10/03/2024 1:56 PM EST Assessment & Plan: 1. History of carotid endarterectomy Carotid Duplex 2. Stenosis of left carotid artery Carotid Duplex 3. Neurogenic claudication 4. PAD (peripheral artery disease) ([facility]) 5. Type 2 diabetes mellitus with stage 3b chronic kidney disease, with long-term current use of insulin ([facility]) 6. Tobacco use Plan: At the present [...] Closed displaced intertrochanteric fracture of right femur ([facility]) 03/08/2021 Closed fracture of left orbital floor ([facility]) 06/10/2020 Closed fracture of multiple ribs of left side 06/10/2020 COPD (chronic obstructive pulmonary disease) ([facility]) Diabetes mellitus ([facility]) TYPE 2 Essential tremor Fall down stairs 04/14/2020 History of pneumonia Hyperlipidemia Hypertension Left carotid artery stenosis 03/30/2016 Leg cramps Leg heaviness MGUS (monoclonal gammopathy of unknown significance) Peptic ulcer disease PVD (peripheral vascular disease) ([facility]) Rhabdomyolysis 2010 Statin intolerance 04/01/2019 ??? Rhabdomyolysis in past. Stroke ([facility]) 2010 R side Past Surgical History: Procedure Laterality Date carotid angio 2010 HAND SURGERY Right 2009 IM NAILING FEMUR Right 04/07/2021 Procedure: RIGHT TFN; Surgeon: Dylon Galindo MD; Location: Main OR; Service: Orthopedic FL TEAEC W/PATCH GRF CAROTID VERTB SUBCLAV NECK [...] (10 mg total) by mouth daily . qotdppps-sgsg-LB-calcium-mins 9 mg iron-400 mcg Tab Take 1 [...] systolic ratio is 2.9. documented in this [id number] NoteEstablished Patient Visit BHUMIKA Lin DPM Patient [...] Date: 03/21/2024 3:08 PM Patient Status: Outpatient Bakelite Molder: Albert Inman RVT Referring Physician: BUDDY LIN II ; Indications - non palpable pulses, tobacco use I73.9 - Peripheral vascular disease, unspecified Procedure Description 36211 Limited bilateral noninvasive physiologic studies of upper [...] In such instances, kenyetta (more content not included)...[facility] History of Present illness Narrative* BHUMIKA [...] 2. Onychomycosis 3. PVD (peripheral vascular disease) ([facility]) 4. Tobacco use 5. Diabetic foot ([facility]) 6. Xerosis of skin Imaging: Reviewed noninvasive vascular studies in detail with patient today. Impression below. Segmental Doppler Lower Extremity Arterial Result Date: 03/21/2024 Patient Info Name: STEVO GERMAIN Age: 74 years : 1950 Gender: Male Exam Date: 03/21/2024 3:08 PM Patient Status: Outpatient Bakelite Molder: Albert Inman RVT Referring Physician: BUDDY LIN II ; Indications - non palpable pulses,tobacco use I73.9 - Peripheral vascular disease, unspecified Procedure Description 89531 Limited bilateral noninvasive physiologic studies of upper [...] Foot & Ankle Surgery documented in this [id number] Evaluation + Plan note* Assessment & Plan Note - [place] MD - 09/10/2024 7:28 AM EST Associated Problem(s): PVD (peripheral vascular disease) (HCC) Reviewed. [id number] Evaluation + Plan note* Assessment & Plan Note - [place] MD - 09/10/2024 7:28 AM ESTAssociated Problem(s): Essential hypertension Reviewed. [id number] Miscellaneous Notes* Assessment & Plan Note - [place] MD - 09/10/2024 7:28 AM ESTAssociated Problem(s): PVD (peripheral vascular disease) ([facility]) Reviewed. * Assessment & Plan Note - [place] MD - 09/10/2024 7:28 AM EST Associated Problem(s): Essential hypertension Reviewed. documented in this [id number] NoteOPG [address] ([address]) [facility] [address] [facility] [id number] Subjective: Stevo Germain is a [...] uses a walker. Seen today with her atotqqsr-ce-dhj. No changes see back in 6 months. No history of SD. Normal nuclear stress test in 2019. Overview of Problems Addressed: Problem Essential Hypertension Chest Pain Pvd (Peripheral Vascular Disease) ([facility]) Assessment & Plan: Reviewed Essential hypertension Reviewed. PVD (peripheral vascular disease) ([facility]) Reviewed. Histories: Past Medical History: Diagnosis Date Arthritis Carotid artery occlusion CKD (chronic kidney disease) Stage III Closed displaced intertrochanteric fracture of right femur ([facility]) 03/08/2021 Closed fracture of left orbital floor ([facility]) 06/10/2020 Closed fracture of multiple ribs of left side 06/10/2020 COPD (chronic obstructive pulmonary disease) ([facility]) Diabetes mellitus ([facility]) TYPE 2 Essential tremor Fall down stairs 04/14/2020 History of pneumonia Hyperlipidemia Hypertension Left carotid artery stenosis 03/30/2016 Leg cramps Leg heaviness MGUS (monoclonal gammopathy of unknown significance) Peptic ulcer disease PVD (peripheral vascular disease) ([facility]) Rhabdomyolysis 2009 Statin intolerance 04/01/2019 ??? Rhabdomyolysis in past. Stroke ([facility]) 2010 R side Past Surgical History: Procedure Laterality Date carotid angio 2010 HAND SURGERY Right 2009 IM NAILING FEMUR Right 04/07/2021 Procedure: RIGHT TFN; Surgeon: Dylon Galindo MD; Location: Main OR; Service: Orthopedic FL TEAEC W/PATCH GRF CAROTID VERTB SUBCLAV NECK [...] times daily. Dx code E11.65. . LANCETS [facility] Check blood glucose 4 times daily . [...] (MEVACOR) 10 MG TABLET (more content not included)...[facility] [id number] History of Present illness Narrative* [place] MD - 09/09/2024 3:31 PM EST [facility] [address] ([address]) [facility] [address] [facility] [phone] Subjective: Stevo Germain is a 74 y.o. [...] walk on treadmill history of CVA uses awalker. Seen today with her llywrqsr-yr-awl. No changes see back in 6 months. No history of SD. Normal nuclear stress test in 2020. Overview of Problems Addressed: Problem Essential Hypertension Chest Pain Pvd (Peripheral Vascular Disease) ([facility]) Assessment & Plan: Reviewed Essential hypertension Reviewed. PVD (peripheral vascular disease) ([facility]) Reviewed. Histories: Past Medical History: Diagnosis Date Arthritis Carotid artery occlusion CKD (chronic kidney disease) Stage III Closed displaced intertrochanteric fracture of right femur ([facility]) 03/08/2021 Closed fracture of left orbital floor ([facility]) 06/10/2020 Closed fracture of multiple ribs of left side 06/10/2020 COPD (chronic obstructive pulmonary disease) ([facility]) Diabetes mellitus ([facility]) TYPE 2 Essential tremor Fall down stairs 04/14/2020 History of pneumonia Hyperlipidemia Hypertension Left carotid artery stenosis 03/30/2016 Leg cramps Leg heaviness MGUS (monoclonal gammopathy of unknown significance) Peptic ulcer disease PVD (peripheral vascular disease) ([facility]) Rhabdomyolysis 2010 Statin intolerance 04/01/2019 ??? Rhabdomyolysis in past. Stroke ([facility]) 2010 R side Past Surgical History: Procedure Laterality Date carotid angio 2010 HAND SURGERY Right 2009 IM NAILING FEMUR Right 04/07/2021 Procedure: RIGHT TFN; Surgeon: Dylon Galindo MD; Location: Main OR; Service: Orthopedic FL TEAEC W/PATCH GRF CAROTID VERTB SUBCLAV NECK [...] daily. DX code E11.65 . BLOOD-GLUCOSE METER [facility] Use to check blood sugar as needed to calibrate CGM . BLOOD-GLUCOSE METER, WIRELESS KIT by Miscellaneous route Use to check BG 2x daily. DXc ode E11.76 . BLOOD-GLUCOSE SENSOR ([employer] G7 SENSOR) JHON Use to check blood [...] times daily. Dx code E11.65. . LANCETS [facility] Check blood glucose 4 times daily . [...] (10 mg total) by mouth daily . EHBCHEHL-XUDZ-IA-CALCIUM-MINS 9 MG IRON-400 MCG TAB Take 1 [...] to schedule the procedure. Fax Order/Script to: [phone] for Central Scheduling scripts [phone] for Mckittrick/Kenna Scheduling scripts DO NOT USE R/O A DIAGNOSIS Order Specific Question: What type of stressing agent do you want to be used? Answer: Regadenoson (Lexiscan) Order Specific Question: Release to patient Answer: Immediate Order Specific Question: Administer radiopharmaceutical according to [facility] policy? Answer: Yes ECG [...] Neurological: Negative for dizziness. documented in this [id number] Instructions* Patient Instructions* Fior Forbes CNP - [...] regimen without sufficient information. documented in this [id number] NotePatient ID: Stevo Germain is a 74 [...] (10 mg total) by mouth daily . oumatonc-iori-BZ-calcium-mins 9 mg iron-400 mcg Tab, Take 1 [...] baseline), weakness and nu (more content not included)...[facility] [facility] History of Present illness Narrative* Fior [...] 2 (two) times a day . lancets [facility] [place], Check blood glucose 4 times daily . lancing device with lancets (Accu-Chek Soft Dev Lancets) Kit, Use to check 2 x daily. DX code E11.65 . loratadine (CLARITIN) 10 mg tablet, Take 1 (one) tablet (10 mg total) by mouth daily as needed for allergies . lovastatin (MEVACOR) 10 MG tablet, Take 1 (one) tablet (10 mg total) by mouth daily . ulblxxip-kmvk-DA-calcium-mins 9 mg iron-400 mcg Tab, Take 1 [...] meter Misc DISCONTINUED: blood-glucose meter,continuous (Dexcom G7 Surveying Crew Rodman) Misc 2. Dyslipidemia Lipid Panel 3. Essential [...] Negative Exam within last 12 months: yes Federal Mediation Commissioner/Silviculture Forester: [facility] Other Ophthalmologic Conditions: S/P Right cataract [...] Feet: deferred today Follows with Podiatry: Yes Skewer Up: Dr Patel saw 06/27/2024 History of foot [...] Call if BG consistently <70 or >250. [phone] 6. Bring blood sugar meter to follow up appointment. Orders Placed This Encounter Procedures Comprehensive Metabolic Panel Hemoglobin A1c Lipid Panel Microalbumin/Creatinine Ratio, UR Random T4, Free TSH Electronically signed by Fior BAIRES 242:18 PM documented in this [id number] Instructions* Patient Instructions* Urszula Aragon RN - 09/05/2024 2:54 PM EST How to Contact your Care Team: Provider: Dr. Aquiles Bay MD Physician Extender: Urszula Aragon RN NUCLEAR MEDICINE CARDIAC STRESS [...] questions please contact your care team or [phone]. documented in this [id number] History of Present illness Narrative* Phyllis Mae [...] DONE BY HOME HEALTH. documented in this encounterPark[facility] Work Phone: 1(105) 440-558908-29-2024 NoteEstablished Patient Visit BHUMIKA Lin DPM Patient [...] 2. Onychomycosis 3. PVD (peripheral vascular disease) ([facility]) 4. Tobacco use 5. Diabetic foot ([facility]) 6. Toe pain, bilateral Imaging: Reviewed noninvasive vascular studies in detail with patient today. Impression below. Segmental Doppler Lower Extremity Arterial Result Date: 03/21/2024 Patient Info Name: STEVO GERMAIN Age: 74 years : 1950 Gender: Male Exam Date: 03/21/2024 3:08 PM Patient Status: Outpatient Bakelite Molder: Albert Inman RVT Referring Physician: BUDDY LIN II ; Indications - non palpable pulses, tobacco use I73.9 - Peripheral vascular disease, unspecified Procedure Description 69688 Limited bilateral noninvasive physiologic studies of upper [...] & Ankle Surgery AUTHENTI (more content not included)...[facility]08[facility]29[facility] History of Present illness Narrative* BHUMIKA [...] Date: 03/21/2024 3:08 PM Patient Status: Outpatient Bakelite Molder: Albert Inman RVT Referring Physician: BUDDY LIN II ; Indications - non palpable pulses,tobacco use I73.9 - Peripheral vascular disease, unspecified Procedure Description 61279 Limited bilateral noninvasive physiologic studies of upper [...] Foot & Ankle Surgery documented in this [id number] NoteEstablished Patient Visit BHUMIKA Lin DPM Patient [...] AUTHENTICATED BY BUDDY LIN II, ON 05/14/2024 11:11:59[facility]07-16-2024 History of Present illness Narrative* BHUMIKA [...] Foot & Ankle Surgery documented in this [id number] NotePatient ID: Stevo Germain is a 74 [...] mouth daily as needed for allergies . veeihqak-cnwr-PC-calcium-mins 9 mg iron-400 mcg Tab, Take 1 [...] headaches. Psychiatric/Behavioral: Negative for (more content not included)...[facility]07-11-2024 History of Present illness Narrative* David [...] mg total) by mouth daily . lancets [facility] [place], Check blood glucose 4 times daily . [...] mouth daily as needed for allergies . pfqvvoym-ewdx-LQ-calcium-mins 9 mg iron-400 mcg Tab, Take 1 [...] disease, with long-term current use of insulin ([facility]) CBC and Differential Comprehensive Metabolic Panel Hemoglobin [...] Negative Exam within last 12 months: yes Federal Mediation Commissioner/Silviculture Forester: [place] [facility] Other Ophthalmologic Conditions: S/P Right cataract extraction [...] routinely with: Dr. Bay, Biannual follow-up, saw FERRIS WHEEL OPERATOR 07/12/2023 Respiratory: Positive History of COPD, continues to smoke 1 ppd. Previously followed with Dr. Jesus Barksdale, will be seeing Dr. Michele or [place]. Vascular: Positive History of CVA 2009 Feet: 10/18/2023 Follows with Podiatry: No Skewer Up: History of foot ulceration: Yes. Right 4thrd [...] Call if BG consistently <70 or >250. [phone] Patient has been checking blood glucoses 2 [...] CNP 05/09/24 9:40 AM documented in this [id number] NoteEstablished Patient Visit BHUMIKA Lin DPM Patient [...] increased knee flexed. Diagnoses: 1. Diabetic foot ([facility]) 2. PVD (peripheral vascular disease) ([facility]) 3. Type 2 diabetes mellitus with stage 3b chronic kidney disease, with long-term current use of insulin ([facility]) 4. Claudication of lower extremity (HCC) 5. Tobacco use 6. Xerosis of skin 7. Onychodystrophy 8. Onychomycosis 9. Toe pain, bilateral Imaging: Reviewed noninvasive vascular studies in detail with patient today. Impression below. Segmental Doppler Lower Extremity Arterial Result Date: 03/21/2024 Patient Info Name: STEVO GERMAIN Age: 74 years : 1950 Gender: Male Exam Date: 03/21/2024 3:08 PM Patient Status: Outpatient Bakelite Molder: Albert Inman RVT Referring Physician: BUDDY LIN II ; Indications - non palpable pulses, tobacco use I73.9 - Peripheral vascular disease, unspecified Procedure Description 64794 Limited bilateral noninvasive physiologic studies of upper [...] diabetic shoes with inser (more content not included)...[facility]05-28-[facility]24 History of Present illness Narrative* BHUMIKA [...] increased knee flexed. Diagnoses: 1. Diabetic foot ([facility]) 2. PVD (peripheral vascular disease) ([facility]) 3. Type 2 diabetes mellitus with stage 3b chronic kidney disease, with long-term current use of insulin ([facility]) 4. Claudication of lower extremity ([facility]) 5. Tobacco use 6. Xerosis of skin 7. Onychodystrophy 8. Onychomycosis 9. Toe pain, bilateral Imaging: Reviewed noninvasive vascular studies in detail with patient today. Impression below. Segmental Doppler Lower Extremity Arterial Result Date: 03/21/2024 Patient Info Name: STEVO GERMAIN Age: 74 years : 1950 Gender: Male Exam Date: 03/21/2024 3:08 PM Patient Status: Outpatient Bakelite Molder: Albert Inman RVT Referring Physician: BUDDY LIN II ; Indications - non palpable pulses,tobacco use I73.9 - Peripheral vascular disease, unspecified Procedure Description 97960 Limited bilateral noninvasive physiologic studies of upper [...] Foot & Ankle Surgery documented in this [id number] Evaluation + Plan note* Assessment & Plan Note - Phyllis Mae MD - 02/27/2024 5:45 PM EDT 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 Stable angina pectoris ([facility]) 11. Hypertension associated with type 2 [...] 2 weeks. Insert SmartText documented in this encounterParkview Health Work Phone: 1(884) 896-638704-25-2024 History of Present illness Narrative* Scott Warren PA-C - 02/22/2024 12:40 PM EDT [facility] [place] NOTE: Name: Stevo Germain, 73 y.o. CSN:[id number] PCP: Phyllis Mae MD ALL: Allergies Allergen [...] as of lately. Has not taken any uurs-tri-xeffpro medications at this time. Denies fever, nausea, [...] dosesthis morning. They did state that his research clerk was trying to wean him off some [...] DAY 90 tablet 3 multivitamin with minerals (ghbzjnurbavy-kwyw-bbjuf acid) tablet Take 1 tablet by mouth [...] Resource Strain: Low Risk (02/28/2023) Received from [facility] Overall Financial Resource Strain (CARDIA) Difficulty of Paying Living Expenses: Not hard at all Food Insecurity: No Food Insecurity (02/28/2023) Received from [facility] Hunger Vital Sign Worried About Running Out of Food in the Last Year: Never true Ran Out of Food in the Last Year: Never true Transportation Needs: No Transportation Needs (02/28/2023) Received from [facility] PRAPARE - Transportation Lack of Transportation (Medical): No Lack of Transportation (Non-Medical): No Physical Activity: Inactive (02/28/2023) Received from [facility] Exercise Vital Sign Days of Exercise per Week: 0 days Minutes of Exercise per Session: 0 min Stress: No Stress Concern Present (02/28/2023) Received from [facility] [place] Citizen [place] [employer] - Occupational Stress Questionnaire Feeling of Stress : Only a little Social Connections: Moderately Isolated (02/28/2023) Received from [facility] Social Connection and Isolation Panel [NHANES] Frequency of Communication with Friends and Family: More than three times a week Frequency of Social Gatherings with Friends and Family: Once a week Attends Shinto Services: Never Active Member of Clubs or Organizations: No Attends Club or Organization Meetings: Never Marital Status: Intimate Partner Violence: Not At Risk (02/28/2023) Received from [facility] Humiliation, Afraid, Rape, and Kick questionnaire Fear of Current or Ex-Partner: No Emotionally Abused: No Physically Abused: No Sexually Abused: No Housing Stability: Low Risk (02/28/2023) Received from [facility] Housing Stability Vital Sign Unable to [...] previous visit (from the past 24 hour(s)). COURSE/MEDICAL DECISION MAKING: Stevo is a 73 [...] to this plan and will report to [facility] immediately. Roberta Warren PA-C Advanced Practice Provider [facility] documented in this encounterParkview Health Work Phone: [phone]) 908-406304-24-2024 Telephone encounter Note* Telephone Encounter - Fior Forbes CNP - 02/21/2024 3:32 PM EDT Danette could you see the above message and pend me an order for novolog on this patient. Thanks [id number] Miscellaneous Notes* Telephone Encounter - Fior Forbes CNP - 02/21/2024 3:32 PM EDT Danette could you see the above message and pend me an order for novolog on this patient. Thanks * Telephone Encounter - Rayo Shaw MA - 02/21/2024 3:25 PM EDT Alternative requested for aspart. Insurance prefers Novolog. documented in this [id number] Telephone encounter Note* Telephone Encounter - Rayo Shaw MA - 02/21/2024 3:25 PM EDT Alternative requested for aspart. Insurance prefers Novolog. [id number] Telephone encounter Note* Telephone Encounter - Sita Solano LPN - 01/04/2024 10:55 AM EST After conversation with regarding "testing and high BG readings without symptoms." Discovered test strips were out dated by years." New rx for meter and strips given. With instructions to start apolinar for more accurate readings. [id number] Miscellaneous Notes* Telephone Encounter - Sita Solano LPN - 01/04/2024 10:55 AM EST After conversation with regarding "testing and high BG readings without symptoms." Discovered test strips were out dated by years." New rx for meter and strips given. With instructions to start apolinar for more accurate readings. documented in this [id number] Telephone encounter Note* Telephone Encounter - Shaniqua Lazaro LPN - 12/25/2023 3:28 PM EST Pt stated that he just picked up insulin and has no readings . Will call office back Monday with readings [id number] Miscellaneous Notes* Telephone Encounter - Shaniqua Lazaro [...] to two different ladies. documented in this [id number] Telephone encounter Note* Telephone Encounter - Shaniqua Lazaro LPN - 12/25/2023 3:21 PM EST LVM to called office [id number] Telephone encounter Note* Telephone Encounter - Susan Baptiste MD - 12/25/2023 3:17 PM EST Please call and see if you can get any current BG readings from him [id number] Telephone encounter Note* Telephone Encounter - Sita [...] carefully 2 x to two different ladies. [id number] Miscellaneous Notes* Telephone Encounter - Sita Solano [...] to two different ladies. documented in this [id number] History of Present illness Narrative* BHUMIKA Lin [...] displaced intertrochanteric fracture of right femur (HCC) 03/08/2021 Closed fracture of left orbital floor (HCC) 06/10/2020 Closed fracture of multiple ribs of left side 06/10/2020 COPD (chronic obstructive pulmonary disease) (HCC) Diabetes mellitus (HCC) TYPE 2 Essential tremor Fall down stairs 04/14/2020 History of pneumonia Hyperlipidemia Hypertension Left carotid artery stenosis 03/30/2016 Leg cramps Leg heaviness MGUS (monoclonal gammopathy of unknown significance) Peptic ulcer disease PVD (peripheral vascular disease) (HCC) Rhabdomyolysis 2010 Statin intolerance 04/01/2019 ??? Rhabdomyolysis in past. Stroke (HCC) 2010 R side Past Surgical History: Procedure Laterality Date carotid angio 2010 HAND SURGERY Right 2009 IM NAILING FEMUR Right 04/07/2021 Procedure: RIGHT TFN; Surgeon: Dylon Galindo MD; Location: Main OR; Service: Orthopedic FL TEAEC W/PATCH GRF CAROTID VERTB SUBCLAV NECK INC Right 2010 SHOULDER OPEN ROTATOR CUFF REPAIR Left 2014 Social History Socioeconomic History Marital status: Occupational History Occupation: Disability Comment: [employer] Tobacco Use Smoking status: Every Day Packs/day: [...] min Stress: No Stress Concern Present (02/28/2023) [place] Citizen [place] [employer] - Occupational Stress Questionnaire Feeling of Stress : Only a little Social Connections: Moderately Isolated (02/28/2023) Social Connection and Isolation Panel [NHANES] Frequency of Communication with Friends and Family: More than three times a week Frequency of Social Gatherings with Friends and Family: Once a week Attends Shinto Services: Never Active Member of Clubs or [...] Extremity Arterial 2. PVD (peripheral vascular disease) ([facility]) Segmental Doppler Lower Extremity Arterial 3. Type 2 diabetes mellitus with stage 3b chronic kidney disease, with long-term current use of insulin ([facility]) Segmental Doppler Lower Extremity Arterial 4. Claudication of lower extremity ([facility]) Segmental Doppler Lower Extremity Arterial 5. Tobacco [...] Foot & Ankle Surgery documented in this [id number] Evaluation + Plan note* Assessment & Plan Note - Phyllis Mae MD - 12/14/2023 6:56 PM EST Associated Problem(s): Non-pressure chronic ulcer of other part of right foot with fat layer exposed (CMS/HCC) Doing fine and stable with current management, continue same HAS F/U WITH MANAGER HEART FAILURE. [facility] Work Phone: [phone] 160-803702-15-2024 Evaluation + Plan note* Assessment & Plan Note - Phyllis Mae MD - 12/14/2023 6:56 PM ESTAssociated Problem(s): Vascular myelopathies (CMS/HCC) stable with current management, continue same [facility] Work Phone: [phone]) 799-901302-15-2024 Evaluation + Plan note* Assessment & Plan Note - Phyllis Mae MD - 12/14/2023 6:56 PM ESTAssociated Problem(s): Depression, major, in remission (CMS/HCC) Doing fine and stable with current management, continue same [facility] Work Phone: [phone]) 127-552802-15-2024 Evaluation + Plan note* Assessment & Plan Note - Phyllis Mae MD - 12/14/2023 6:56 PM ESTAssociated Problem(s): Thoracic aortic aneurysm (TAA) (CMS/HCC) Doing fine and stable with current management, continue same [facility] Work Phone: [phone]) 452-619702-15-2024 Evaluation + Plan note* Assessment & Plan Note - Phyllis Mae MD - 12/14/2023 6:56 PM ESTAssociated Problem(s): Stage 3b chronic kidney disease (CMS/HCC) Doing fine and stable with current management, continue same 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 [facility] Work Phone: [phone] Miscellaneous Notes* Assessment & Plan Note - Phyllis Mae MD - 12/14/2023 6:56 PM ESTAssociated Problem(s): Non- pressure chronic ulcer of other part of right foot with fat layer exposed (CMS/HCC) Doing fine and stable with current management, continue same HAS F/U WITH MANAGER HEART FAILURE. * Assessment & Plan Note - Phyllis [...] * Assessment & Plan Note - Phyllis Mea MD - 12/14/2023 6:56 PM EST Associated Problem(s): Stage 3b chronic kidney disease (CMS/HCC) Doing fine and stable with current management, continue same 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 documented in this [facility] Work Phone: [phone] History of Present illness Narrative* Phyllis Mae [...] Hypertension associated with type 2 diabetes mellitus ([facility]) 2. Type 2 diabetes mellitus with other circulatory complication, with long-term current use of insulin ([facility]) Dexcom G6 Sensor device Dexcom G6 Transmitter device Comprehensive Metabolic Panel Hemoglobin A1C 3. Gait difficulty Referral to Home Health 4. Muscle weakness of lower extremity Referral to Home Health 5. Recurrent falls Referral to Home Health 6. Centrilobular emphysema ([facility]) nebulizer and compressor device nebulizers (VixOne Nebulizer-Adult Mask) [facility] 7. Screening for prostate cancer Prostate Specific [...] REFERRAL, . 2 MON documented in this [facility] Work Phone: [phone]) [phone] Instructions* Patient Instructions* Fior Forbes CNP - [...] Jardiance 10mg oral daily documented in this [id number] History of Present illness Narrative* Fior Forbes [...] mouth daily as needed for allergies . euofcusa-fwlc-SA-calcium-mins 9 mg iron-400 mcg Tab, Take 1 [...] Negative Exam within last 12 months: yes Federal Mediation Commissioner/Silviculture Forester: [facility] Other Ophthalmologic Conditions: S/P Right cataract extraction [...] routinely with: Dr. Bay, Biannual follow-up, saw FERRIS WHEEL OPERATOR 07/12/2023 Respiratory: Positive History of COPD, continues to smoke 1 ppd. Previously followed with Dr. Jesus Barksdael, will be seeing Dr. Michele or [place]. Vascular: Positive History of CVA 2010 Feet: 10/18/2023 Follows with Podiatry: No Skewer Up: History of foot ulceration: Yes. Right 4thrd [...] Call if BG consistently <70 or >250. [phone] Patient has been checking blood glucoses 2 [...] Fior BAIRES 231:00 PM documented in this [id number] Instructions* Patient Instructions* Deshaun Rodrigues MD - 10/11/2023 1:23 PM EST Mr. Germain, We are going to get that CLIFFORD scan we talked about last time before we make any changes to help the tremors. Keep everything else the same for now. I did put a referral in for a lay out helper here in [place] to check the foot. It was a pleasure taking care of you, and we all wish you the best of health. For concerns regarding medicines, adjusting doses or other questions: Call : [phone] (direct phone line to neurology staff) - leave a message if no one is available. (Note that [phone] is still listed on most of our paperwork and is a general line to the call pool in [place]; the number above is a faster way to get in touch with our staff here in [place]) [facility] [place] - the best way to send messages directly to your doctors, or request Drug Refills. Call [phone] to set up [facility] on your smart phone or computer. Mailing Address: Attn: Dr. Deshaun Rodrigues [address] [place], [place] [address]mon[facility] [id number], [place] [address] Our documented in this [id number] History of Present illness Narrative* Deshaun Rodrigues MD - 10/11/2023 1:00 PM EST Neurology Follow Up Note [facility] Date of Service: 10/11/23 [...] as needed. Deshaun Rodrigues MD Staff Neurologist [facility] [address] [id number], [facility] [address] [facility] Fax: [phone] 10/11/23 Subjective Chief Complaint/Reason for Consult: seizure Informant(s): self, Initial History of Present Illness 06/16/22: Stevo Gremain is a 73 y.o. man who reports [...] side (06/10/2020), COPD (chronic obstructive pulmonary disease) ([facility]), Diabetes mellitus ([facility]), Essential tremor, Fall down stairs (04/14/2020), History of pneumonia, Hyperlipidemia, Hypertension, Left carotid artery stenosis (03/30/2016), Leg cramps, Leg heaviness, MGUS (monoclonal gammopathy of unknown significance), Pe ptic ulcer disease, PVD (peripheral vascular disease) ([facility]), Rhabdomyolysis (2009), Statin intolerance (04/01/2019), and Stroke ([facility]) (2009). He has a past surgical history [...] loratadine (CLARITIN) 10 mg, Oral, Daily PRN mzerafls-kbzt-RN-calcium-mins 9 mg iron-400 mcg Tab 1 tablet, [...] Absent NILESH Unable to Assess COORDINATION: Coordination Ybdyti-kb-Rkyt: No obvious ataxia; possibly some mild intention tremor on top of existing action tremor Valdovinos Finger taps: Slightly clumsy bilaterally but worse on the left Coordination Vmtd-Kzos-Thsa: Limited by hip pain STANCE AND GAIT: [...] MMA WNL. A1c 8.8. documented in this [id number] History of Present illness Narrative* Phyllis Mae [...] REFERRAL, . 1 mon documented in this encounterPark[facility] Work Phone: [phone] 278-422509-13-2023 Instructions* Patient Instructions* Katalina Marie MA - 07/12/2023 1:15 PM EDT How to Contact your Care Team: Provider: Dr. Aquiles Bay MD Physician Extender: Urszula Aragon RN documented in this [id number] History of Present illness Narrative* Arianna Alfaro CNP - 07/12/2023 1:00 PM EDT General Cardiology Clinic Follow up Heart & Vascular [facility] 07/12/2023 Arianna Alfaro CNP [address] [place] [address] Medical Office [facility] [id number] Patient: Stevo Germain Date of [...] Closed displaced intertrochanteric fracture of right femur ([facility]) 03/08/2021 Closed fracture of left orbital floor ([facility]) 06/10/2020 Closed fracture of multiple ribs of left side 06/10/2020 COPD (chronic obstructive pulmonary disease) ([facility]) Diabetes mellitus ([facility]) TYPE 2 Essential tremor Fall down stairs 04/14/2020 History of pneumonia Hyperlipidemia Hypertension Left carotid artery stenosis 03/30/2016 Leg cramps Leg heaviness MGUS (monoclonal gammopathy of unknown significance) Peptic ulcer disease PVD (peripheral vascular disease) ([facility]) Rhabdomyolysis 2010 Statin intolerance 04/01/2019 ??? Rhabdomyolysis in past. Stroke ([facility]) 2010 R side Past Surgical History: Procedure Laterality Date carotid angio 2010 HAND SURGERY Right 2009 IM NAILING FEMUR Right 04/07/2021 Procedure: RIGHT TFN; Surgeon: Dylon Galindo MD; Location: Main OR; Service: Orthopedic FL TEAEC W/PATCH GRF CAROTID VERTB SUBCLAV NECK [...] mouth daily as needed for allergies . rwhrgsbz-jtqx-DB-calcium-mins 9 mg iron-400 mcg Tab Take 1 [...] file prior to visit. documented in this [id number] Instructions* Patient Instructions* Deshaun Rodrigues MD - [...] adjusting doses or other questions: Call : [phone] (direct phone line to neurology staff) - leave a message if no one is available. (Note that [phone] is still listed on most of our paperwork and is a general line to the call pool in [place]; the number above is a faster way to get in touch with our staff here in [place]) [facility] - the best way to send messages directly to your doctors, or request Drug Refills. Call [phone] to set up [facility] on your smart phone or computer. Mailing Address: Attn: Dr. Deshaun Rodrigues [address] [place] [address]# [id number], [facility] [address] Our documented in this [id number] History of Present illness Narrative* Deshaun Rodrigues MD - 04/05/2023 2:30 PM EDT Neurology Follow Up Note [facility] Date of Service: 04/05/23 [...] as needed. Deshaun Rodrigues MD Staff Neurologist [facility] [id number], [facility] [address] [facility] Fax: [phone] 04/05/23 Subjective Chief Complaint/Reason for Consult: seizure [...] disease),Closed displaced intertrochanteric fracture of right femur ([facility]) (03/08/2021), Closed fracture of left orbital floor ([facility]) (06/10/2020), Closed fracture of multiple ribs of left side (06/10/2020), COPD (chronic obstructive pulmonary disease) ([facility]), Diabetes mellitus ([facility]), Essential tremor, Fall down stairs (04/14/2020), History of pneumonia, Hyperlipidemia, Hypertension, Left carotid artery stenosis (03/30/2016), Leg cramps, Leg heaviness, MGUS (monoclonal gammopathy of unknown significance), Pe ptic ulcer disease, PVD (peripheral vascular disease) ([facility]), Rhabdomyolysis (2009), Statin intolerance (04/01/2019), and Stroke ([facility]) (2009). He has a past surgical history [...] loratadine (CLARITIN) 10 mg, Oral, Daily PRN cjliuvtk-ndsw-FZ-calcium-mins 9 mg iron-400 mcg Tab 1 tablet, [...] Absent NILESH Unable to Assess COORDINATION: Coordination Epopeh-gw-Pyos: No obvious ataxia; possibly some mild intention tremor on top of existing action tremor Valdovinos Finger taps: Slightly clumsy bilaterally but worse on the left Coordination Wsey-Cves-Dxij: Limited by hip pain STANCE AND GAIT: [...] 11.7), last A1c 6.9. documented in this [id number] Evaluation + Plan note* Assessment & Plan Note - Phyllis Mae MD - 03/07/2023 3:12 PM EDT Associated Problem(s): Other fracture of base of skull, initial encounter for closed fracture (CMS/HCC) (Resolved 03/07/2023) STABLE. [facility] Work Phone: [phone]) 900-355605-09-2023 Evaluation + Plan note* Assessment & Plan Note - Phyllis Mae MD - 03/07/2023 3:12 PM EDTAssociated Problem(s): Vascular myelopathies (CMS/HCC) Doing fine and stable with current management, continue same [facility] Work Phone: 1(666) 596-587005-09-2023 Evaluation + Plan note* Assessment & Plan Note - Phyllis Mae MD - 03/07/2023 3:12 PM EDTAssociated Problem(s): Depression, major, in remission (CMS/HCC) Stable, continue same [facility] Work Phone: 1(122) 326-893705-09-2023 Evaluation + Plan note* Assessment & Plan Note - Phyllis Mae MD - 03/07/2023 3:12 PM EDTAssociated Problem(s): Chronic stable angina (CMS/HCC) Doing fine and stable with current management, continue same [facility] Work Phone: [phone]) 414-102605-09-2023 Miscellaneous Notes* Assessment & Plan Note - [...] current management, continue same documented in this [facility] Work Phone: 1(140) 902-724605-09-2023 History of Present illness Narrative* Phyllis Mae MD - 03/07/2023 1:30 PM EDT Subjective Patient ID: Stevo Germain is a 72 y.o. male who presents for Hospital Follow- up (F/U HOSPITAL DISCHARGE [facility] 02/27/23 - COPD EXACERBATION, LEFT RIB PAIN. ). HPI F/U AFTER 4 DAYS OF HOSPITAL STAY LAST WEEK FOR COPD EXACERBATIONS, B/L RIB PAIN , S/P FALL (WHILE WAS GOING TO BATHROOM DURING SLEEP). COPD IS IMPROVING BUT STILL HAS B/L RIB PAIN 4-5/10. HAD LABS ,CXR , CT ANGIO OF [...] tablet 6. Pulmonary emphysema, unspecified emphysema type ([facility]) 7. CRF (chronic renal failure), stage 3 (moderate) ([facility]) 8. Hypertension associated with type 2 diabetes mellitus ([facility]) Comprehensive Metabolic Panel 9. Type 2 diabetes [...] REFERRAL, . 2 WEEKS documented in this [facility] Work Phone: 1(499) 405-384608-18-2022 Instructions* Patient Instructions* Deshaun Rodrigues MD - [...] adjusting doses or other questions: Call : [phone] (direct phone line to neurology staff) - leave a message if no one is available. (Note that [phone] is still listed on most of our paperwork and is a general line to the call pool in [place]; the number above is a faster way to get in touch with our staff here in [place]) [facility] [place] - the best way to send messages directly to your doctors, or request Drug Refills. Call [phone] to set up [facility] on your smart phone or computer. Mailing Address: Attn: Dr. Deshaun Rodrigues [address] [place], [place] [address]ashish, [facility]# [id number], [facility] [address] Our documented in this [id number] History of Present illness Narrative* Deshaun Rodrigues MD - 06/16/2022 1:00 PM EDT Neurology New Consult Note [facility] Date of Service: 06/16/22 [...] as needed. Deshaun Rodrigues MD Staff Neurologist [facility] [address] [id number], [address] Fax: [phone] 06/16/22 Subjective Chief Complaint/Reason for Consult: seizure [...] kidney disease),Closed fracture of left orbital floor ([facility]) (06/10/2020), Closed fracture of multiple ribs of left side (06/10/2020), COPD (chronic obstructive pulmonary disease) ([facility]), Diabetes mellitus ([facility]), Essen tial tremor, Fall down stairs (04/14/2020), History of pneumonia, Hyperlipidemia, Hypertension, Left carotid artery stenosis (03/30/2016), Leg cramps, Leg heaviness, MGUS (monoclonal gammopathy of unknown significance), Peptic ulcer disease, PVD (peripheral vascular disease) (HCC), Rhabdomyolysis (2 010), Statin intolerance (04/01/2019), and Stroke ([facility]) (2009). He has a past surgical history [...] loratadine (CLARITIN) 10 mg, Oral, Daily PRN jjqcuuau-piob-CW-calcium-mins 9 mg iron-400 mcg Tab 1 tablet, [...] Absent NILESH Unable to Assess COORDINATION: Coordination Ljvrll-ln-Octx: No obvious ataxia; possibly some mild intention tremor on top of existing action tremor Valdovinos Finger taps: Slightly clumsy bilaterally Coordination Ldve-Dgeh-Qsdf: Limited by hip pain STANCE AND GAIT: [...] 11.7), last A1c 6.9. documented in this [id number] History of Present illness Narrative* Erica Gardner [...] by mouth daily as needed for allergies. lckpnslj-txrq-IT-calcium-mins 9 mg iron-400 mcg Tab, Take 1 [...] disease, with long-term current use of insulin ([facility]) Hemoglobin A1c Comprehensive Metabolic Panel TSH T4, [...] Negative Exam within last 12 months: yes Federal Mediation Commissioner/Silviculture Forester: Dr. Lepe Other Ophthalmologic Conditions: S/P Right [...] CVA 2009 Feet: Follows with Podiatry: No Skewer Up: History of foot ulceration: No History of [...] Call if BG consistently <70 or >250. [phone] Patient has been checking blood glucoses 2 [...] PA-C 06/10/22 12:25 PM documented in this [id number] Evaluation + Plan note* Assessment & Plan Note - Aquiles Bay MD - 06/04/2022 9:06 AM EDT Associated Problem(s): GREEN (dyspnea on exertion) Reviewed. [id number] Miscellaneous Notes* Assessment & Plan Note - [place] MD - 06/04/2022 9:06 AM EDTAssociated Problem(s): GREEN (dyspnea on exertion) Reviewed. documented in this [id number] History of Present illness Narrative* Aqu[place] Bay MD - 06/02/2022 3:58 PM EDT [facility] [address] ([address]) [facility] [address] [facility] [id number] Subjective: Stevo Germain is a [...] III Closed fracture of left orbital floor ([facility]) 06/10/2020 Closed fracture of multiple ribs of left side 06/10/2020 COPD (chronic obstructive pulmonary disease) ([facility]) Diabetes mellitus ([facility]) TYPE 2 Essential tremor Fall down stairs 04/14/2020 History of pneumonia Hyperlipidemia Hypertension Left carotid artery stenosis 03/30/2016 Leg cramps Leg heaviness MGUS (monoclonal gammopathy of unknown significance) Peptic ulcer disease PVD (peripheral vascular disease) ([facility]) Rhabdomyolysis 2009 Statin intolerance 04/01/2019 ??? Rhabdomyolysis in past. Stroke (HCC) 2010 R side Past Surgical History: Procedure Laterality Date carotid angio 2010 HAND SURGERY Right 2009 IM NAILING FEMUR Right 04/07/2021 Procedure: RIGHT TFN; Surgeon: Dylon Galindo MD; Location: Main OR; Service: Orthopedic [place] THROMBOENDARTECTMY NECK,NECK INCIS Right 2009 SHOULDER OPEN [...] by mouth daily as needed for allergies. JPSDORHO-AKVA-RY-CALCIUM-MINS 9 MG IRON-400 MCG TAB Take 1 [...] Neurological: Negative for dizziness. documented in this [id number] Instructions* Patient Instructions* Kiana Cheatham MA - 06/02/2022 3:31 PM EDT How to Contact your Care Team: Provider: Dr. Aquiles Bay MD Physician Extender: Urszula Aragon RN REFILLS: When in need for refills please call your care team or the office at [phone]. Please include medication name, pharmacy name, and specify 30-day or 90-day supply. Please check with your pharmacy within 24 hours of request for your refill. You must follow up as directed to continue current refills. Thank you! documented in this [id number] History of Present illness Narrative* Santana Orosco [...] the 01/10/22 encounter (Office Visit) with Santana Orsoco PA-C: Accu-Chek Elli Plus test strp strips, [...] by mouth daily as needed for allergies. vzyenutc-ijwl-RE-calcium-mins 9 mg iron-400 mcg Tab, Take 1 [...] disease, with long-term current use of insulin ([facility]) Comprehensive Metabolic Panel Hemoglobin A1c Type 2 [...] Negative Exam within last 12 months: yes Federal Mediation Commissioner/Silviculture Forester: Dr. Lepe Other Ophthalmologic Conditions: S/P Right [...] CVA 2009 Feet: Follows with Podiatry: No Skewer Up: History of foot ulceration: No History of [...] Call if BG consistently <70 or >250. [phone] Patient has been checking blood glucoses 2 [...] A1c Electronically signed by: Santana Orosco PA-C, [facility] 01/10/22 12:55 PM documented in this [id number] History of Present illness Narrative* Dylon Galindo MD - 09/09/2021 6:10 PM EST (Incomplete)This note is in progress. Dictation on: 09/09/2021 6:10 PM by: DYLON GALINDO [[id number]] documented in this [id number] History of Present illness Narrative* David Waters [...] by mouth daily as needed for allergies. rktyzfps-vzta-SM-calcium-mins 9 mg iron-400 mcg Tab, Take 1 [...] disease, with long-term current use of insulin ([facility]) 2. Essential hypertension Type 2 diabetes, under [...] within last 12 months: yes Date: 11/18 Federal Mediation Commissioner/Silviculture Forester: Dr. Lepe Other Ophthalmologic Conditions: S/P Right [...] foot exam: 08/03/21 Follows with Podiatry: No Skewer Up: History of foot ulceration: No History of [...] Call if BG consistently <70 or >250. [phone] Patient has been checking blood glucoses 2 [...] CNP 08/03/21 11:44 AM documented in this [id number] History of Present illness Narrative* Dylon Galindo MD - 05/21/2021 5:59 PM EDT Dictation on: 05/21/2021 6:00 PM by: DYLON GALINDO [[id number]] documented in this [id number] Miscellaneous Notes* Quick Note - Richardson Lema RN - 05/11/2021 1:53 PM EDT Reviewing AVS and patients . Stated pharmacy incorrect. Called Dr. Alvarez to edit medicationsand pharmacy. Made adjustments while on the phone with this RN. Will wait for updated AVS and review with patient and . * [facility] - Vonda Herrera OTA - 05/11/2021 10:10 AM EDT OCCUPATIONAL THERAPY VISIT VARIANCE NOTE Attempted to see patient at this time, but unable secondary to: Refused. Pt reported he was discharging home this date and denied any needs. Will follow up as appropriate. * Quick Note - Richardson Lema RN - 05/11/2021 9:50 AM EDT Encouraged patient to sit at side of bed and or get in chair to eat breakfast. Patient declined at this time. * Plan of Care - Rachel Bridges RN - 05/10/2021 10:14 AM EDT Problem: [...] of Care - Radha Barksdale RN - 05/10/2021 5:26 AM EDT Problem: [...] Partially Met * Plan of Care - Judi Sorto RN - 05/09/2021 12:31 [...] of [place] - Maira Daigle RN - 05/07/2021 5:54 [...] falls Outcome: Partially Met * Plan of Angelina Castle RN - 05/07/2021 4:12 AM EDT Problem: [...] comfort function goal Outcome: Partially Met * Ho[place] of Maira Ascencio RN - 05/06/2021 11:14 AM EDT Problem: [...] Enviroment Outcome: Partially Met * Plan of [place] - Silvia Baum RN - 05/06/2021 7:08 [...] Partially Met * Plan of [place] - Radha Barksdale RN - 05/05/2021 12:15 [...] Partially Met * Plan of [place] - Silvia Denney RN - 05/04/2021 10:39 [...] chair. States "maybe later". * Plan of [place] - Richardson Lema RN - 05/02/2021 10:49 [...] Partially Met * Plan of [place] - Fadumo Cespedes OT - 04/30/2021 9:48 [...] care hospital * Plan of Care - Rachel [...] * Plan of Care - Annita Camacho, PT - 04/30/2021 9:21 AM EDT Physical Therapy [...] [place], will notify him to assume care. [facility] will sign off. * Plan [...] handed to dr stockton documented in this [id number] History of Present illness Narrative* Manohar Shaw RN - 05/11/2021 10:46 AM EDT COMPLEX DISCHARGE Date: 05/11/2021 Time: 10:46 AM Patient Name: Stevo Germain Date of : 1950 Sex: Male Patient Information Primary Caregiver: Other (Comment) ([facility]) Patient and spouse wanting patient discharged home today with home health care. Set up with [facility] by associate professor Anya. Ambulatory orders in and signed, updated nursing Source of Information: Patient, Significant Other Living Arrangements: Facility Support Systems: Spouse/significant other Assistance Needed: Moderate Type of Residence: alf Care Facility Name: [facility] Prior to Admission Home Care Services: Yes Type of Current Home Care Services: Home health care Patient expects to be discharged to:: [facility] Does the patient need discharge transport arranged?: Yes [facility] Disposition D/C Disposition: Halfway Facility Agency/Destination: [facility] Estimated Length of Stay (ELOS): 16 ELOS [...] Communicated with patient's spouse Isabelle, who chose 1-[facility], 2-[facility]. Referral(s) sent, awaiting follow-up. Physician Extender Variety Saw Operator communicated with Raegan with [facility] who reports acceptance. No pre-cert required. Outbound Sales Advisor and Physician Extender, JAYDEN Juan and Kiran STACK CM, updated via Secure Chat. [facility] Disposition D/C Disposition: Halfway Facility Agency/Destination: [facility] Estimated Length of Stay (ELOS): 16 ELOS Discussed with Patient / Family?: Yes Post-Acute Patient Choice 1: [facility] Post-Acute Patient Choice 2: [facility] How did you provide the Post Acute Choices: Electronically sent Regulatory Documentation: Medicare IM Regulatory Documentation Status: Signed Signed: Self Anticipated Discharge Plan Anticipated HME: None Anticipated Home Care Needs: None Anticipated Facility Type: [facility] facility * Kayla Mora OTA - 05/10/2021 2:15 PM EDT Occupational Therapy [...] assist Sit to Supine: Stand by assist Algorithm Developer: bedrails Functional Transfers Sit to Stand: Stand by assist Bed to Chair Transfers: Stand by assist Toilet Transfers: Stand by assist Algorithm Developer: wheeled walker Skilled Intervention Provided: verbal cues, [...] Home Living: pt was at rehab in [place] for a hip fracture sustained~ 1 month ago. pt came to [facility] from [facility] Prior Level of Function Receives Help From: Spouse Level of [place] - Transfers/Ambulation/Mobility: Independent with functional transfers, Independent with household ambulation, Independent with community ambulation Level of [place] - ADLs: Independent Level of [place] - Homemaking: Independent Driving: Patient does not [...] Occupational Therapy Plan of Care. * Himanshu Philippe PTA - 05/10/2021 2:07 PM EDT Physical Therapy [...] assist Stand Pivot Transfers: Contact guard assist Algorithm Developer: wheeled walker Pt educated on safe transfer [...] Home Living: pt was at rehab in [place] for a hip fracture sustained~ 1 month ago. pt came to [facility] from [facility] Prior Level of Function Receives Help From: Spouse Level of [place] - Transfers/Ambulation/Mobility: Independent with functional transfers, Independent with household ambulation, Independent with community ambulation Level of [place] - ADLs: Independent Level of [place] - Homemaking: Independent Driving: Patient does not [...] Physical Therapy Plan of Care. * Yessica Luna JIGGER CROWN POUNCING MACHINE OPERATOR GANG BORE OPERATOR - 05/10/2021 12:54 PM EDT DISCHARGE PLAN PROGRESS NOTE Date: 05/10/2021 Time: 12:54 PM Precert remains pending for [facility]. No updated therapy notes to send at this time. 1443- Spoke with spouse Isabelle. Isabelle confirmed plan will be for home with home health care. [facility]. Isabelle stepped out so [facility] list was texted to her. This worker's contact number listed for return call. Secure chat sent to Dr. Alvarez with an update. Updated Kiran, rn care transition, via secure chat. Brii with [facility] notified. Patient Name: Stevo Germain Date of : 1950 Sex: Male [facility] Disposition D/C Disposition: Halfway Facility Agency/Destination: [facility] Estimated Length of Stay (ELOS): 16 ELOS Discussed with Patient / Family?: Yes Regulatory Documentation: Medicare IM Regulatory Documentation Status: Certified (LETTER LEFT FOR SLEEPING PT) Anticipated Discharge Plan Anticipated HME: None Anticipated Home Care Needs: None Anticipated Facility Type: [facility] facility * Don Penning[place] MD - 05/10/2021 8:50 AM EDT Patient was admitted from the local long-term with urinary tract infection treated and stable Waiting to go to back to the long-term for recertification Patient is a posterior right hip fracture repair underwent physical therapy and patient is says he is going to bathroom but uses urinals at the bedside Hypertension under reasonable control on Procardia and labetalol Hyperlipidemia on treatment Physical examination findings unchanged Stable overall no new findings Plan waiting to go to long-term. * Bryce Alvarez MD - 05/09/2021 10:27 AM EDT Internal medicine Inpatient Follow-up 05/09/2021 Bryce Alvarez MD [facility] Patient: Stevo Germain Date of : 1950 [...] disease, with long-term current use of insulin ([facility]) Assessment & Plan Blood sugar is stable. Essential hypertension Assessment & Plan Blood pressure is better. Anemia due to stage 3a chronic kidney disease ([facility]) Assessment & Plan Hemoglobin stable. Urinary tract infection associated with indwelling urethral catheter ([facility]) Assessment & Plan Resolved. Urinary retention Assessment & Plan Confirmed by post void residual. As Diego is out now we will check post residual volume by ultrasound. Chronic obstructive pulmonary disease ([facility]) Assessment & Plan Stable Summary of assessment and Plan patient's renal functions remained stable overall patient is stable. Plan whenever bed is available/insurance pre-CERT goes through patient will be discharged to long-term for physical therapy. SUBJECTIVE: History Since Last [...] will be able to go back to long-term hopefully byMonday Denies any other issues On examination vital [...] Precautions Orthotic Devices: No Weight Bearing Status: WF General Rehab Precautions: Fall risk Cognition Overall Cognitive Status: Within Functional Limits Arousal/Alertness: Appropriate responses to stimuli Orientation Level: Oriented X4 Executive functioning: Insight Safety Judgment: Decreased awareness of need for assistance, Decreased awareness of need for safety Problem Solving: Assistance required to identify errors made Attention: Attends to quiet environment Hearing Status: [facility] Social Interaction: [facility] Comments: Followed all commands during session. [...] guard assist Toilet Transfers: (declined to practice) Algorithm Developer: wheeled walker Skilled Intervention Provided: monitoring patient [...] unilateral RUE support, without UE support, retropulsive Algorithm Developer - Standing Dynamic: wheeled walker Loss of [...] Home Living: pt was at rehab in [place] for a hip fracture sustained~ 1 month ago. pt came to [facility] from [facility] Prior Level of Function Receives Help From: Spouse Level of [place] - Transfers/Ambulation/Mobility: Independent with functional transfers, Independent with household ambulation, Independent with community ambulation Level of [place] - ADLs: Independent Level of [place] - Homemaking: Independent Driving: Patient does not [...] Standing Balance - Static: Contact guard assist Algorithm Developer - Standing Static: wheeled walker Bed Mobility Rolling: Minimal assist, Modified independent Supine to Sit: Minimal assist Skilled Intervention Provided: verbal cues For: UE management, LE management Transfers Sit to Stand: Stand by assist Bed to Chair: Contact guard assist Stand Pivot Transfers: Contact guard assist Algorithm Developer: wheeled walker Skilled Intervention Provided: verbal cues [...] Home Living: pt was at rehab in [place] for a hip fracture sustained~ 1 month ago. pt came to [facility] from [facility] Prior Level of Function Receives Help From: Spouse Level of [place] - Transfers/Ambulation/Mobility: Independent with functional transfers, Independent with household ambulation, Independent with community ambulation Level of [place] - ADLs: Independent Level of [place] - Homemaking: Independent Driving: Patient does not [...] 30 Narrative: Upon rounding, Stevo's spouse motions traveling accountant to come into the room. Account Clerk enteredand listened while the spouse shared her concerns with Stevo's eventual departure and discharge from the hospital. The transition piece from the hospital to the long-term gives both spouse and Stevo anxiety. Spouse requested prayer for healing and for a smooth transition once leaving the hospital. Account Clerk provided prayer and emotional/spiritual support while spouse gave her narrative which included her aspirations of travel with Stevo upon his departure. Both expressed their gratitude for the medical team and their hospitality. Account Clerk provided an empathetic ear for Stevo as [...] Future Visits: PRN, Pt aware to contact Account Clerk as needed 05/07/21 1220 Visit Background Visit With Patient;Spouse Visit By Student Account Clerk Visit Progression Follow-Up Visit Requested By Account Clerk Initiated Visit Source Account Clerk Initiated Visit Type Inpatient;Rounding Visit Circumstances and Events Routine Visit;Family Support Visit Length (minutes) 30 Patient's Response to Pastoral Care Appeared to be well-engaged;Expressed Gratitude for Visit;Visitsaid to have been helpful Visit Planning PRN;Pt aware to contact Account Clerk as needed Spiritual Assessment Not assessed during visit Shinto Assessment Assessed during this visit Family assessment provided? Assessed during this visit Patient Shinto Needs Assessment Shinto Connection Not Discussed Shinto [employer] Connection [employer] Family Assessment Relationship to Patient Spouse Affect at Time of Visit Anxious;Open to Discussion;Tearful;Talkative;Pleasant;Worried Emotions Expressed During Visit Coping;Hopeful;Overwhelmed;Relies on Pia;Tired;Worried Expressed Concerns Regarding Patient Illness Additional Responsibilities;Concern about Patient/Outcome;[id number];Length of Stay;Life Review;Transition in Care Sources of Hope and Strength Comfort;Pia;Praying for Healing;Supportive of One Another Family / Friend's Support and Participation Active (Their children play a considerable part in their support) Grief Assessment Appropriately Coping Spiritual Assessment Seeking Healing/Wholeness Interventions - Family / Friend Account Clerk Support;Affirmation;Empathic Listening;Facilitated Story-Telling;Provided Comfort;Provided Prayer;Provided Spiritual Support Family / Friend Outcomes Expressed Gratitude;Open to Account Clerk Visit;Processed Tearfully;Processed Verbally;Reduced Anxiety;Verbalized Feelings Akhil Ventura Account Clerk Human Resources Operations Manager [facility] 22/05 On-Call * Yessica Luna MSW LSW - 05/07/2021 10:41 AM EDT DISCHARGE PLAN PROGRESS NOTE Date: 05/07/2021 Time: 10:41 AM Patient is ready for discharge once precert is received. Precert remains pending at this time. Mostrecent therapy note from 05/06 was sent to [place]. Patient Name: Stevo Germain Date of : 1950 Sex: Male [facility] Disposition D/C Disposition: Halfway Facility Agency/Destination: [facility] Estimated Length of Stay (ELOS): 16 ELOS Discussed with Patient / Family?: Yes Anticipated Discharge Plan Anticipated HME: None Anticipated Home Care Needs: None Anticipated Facility Type: [facility] facility * Bryce Alvarez MD - 05/07/2021 9:15 AM EDT Internal medicine Inpatient Follow-up 05/07/2021 Bryce Alvarez MD [facility] Patient: Stevo Germain Date of : 1950 (71 y.o.) PCP: Phyllis Mae MD ASSESSMENT/PLAN: Stevo Germain 71 y.o. male Sepsis with acute renal failure without septic shock ([facility]) Assessment & Plan Present on admission now [...] disease, with long-term current use of insulin ([facility]) Assessment & Plan Blood sugar is stable. Essential hypertension Assessment & Plan Blood pressure is better. Anemia due to stage 3a chronic kidney disease (HCC) Assessment & Plan Hemoglobin stable. Urinary tract infection associated with indwelling urethral catheter ([facility]) Assessment & Plan Resolved. Urinary retention Assessment & Plan Confirmed by post void residual. As Diego is out now we will check post residual volume by ultrasound. Chronic obstructive pulmonary disease (HCC) Assessment & Plan Stable Summary of assessment and Plan patient overall stable after checking post void urine will dischargethe patient to long-term. SUBJECTIVE: History Since Last Visit: Patient has [...] Laboratory, Medications and Transcriptions * Lilly Pelaez, BIAS MACHINE OPERATOR - 05/06/2021 1:47 PM EDT Physical Therapy [...] assist Stand Pivot Transfers: Contact guard assist Algorithm Developer: wheeled walker Skilled Intervention Provided: verbal cues, [...] Home Living: pt was at rehab in [place] for a hip fracture sustained~ 1 month ago. pt came to [facility] from [facility] Prior Level of Function Receives Help From: Spouse Level of [place] - Transfers/Ambulation/Mobility: Independent with functional transfers, Independent with household ambulation, Independent with community ambulation Level of [place] - ADLs: Independent Level of [place] - Homemaking: Independent Driving: Patient does not [...] Patient is waiting to be discharged to long-term and verifying certification Patient is here in [...] 1:30 PM Updated therapy notes sent to [facility] for precert. Contacted [facility] and notified Brii that notes were sent. Patient Name: Steov Germain Date of : 1950 Sex: Male [facility] Disposition D/C Disposition: Halfway Facility Agency/Destination: [facility] Estimated Length of Stay (ELOS): 16 ELOS Discussed with Patient / Family?: Yes Anticipated Discharge Plan Anticipated HME: None Anticipated Home Care Needs: None Anticipated Facility Type: [facility] facility * Vonda Herrera OTA - 05/05/2021 [...] Attention: Attends to quiet environment Hearing Status: [facility] Social Interaction: [facility] Comments: Followed all commands during session. [...] Contact guard assist, Head of bed elevated Algorithm Developer: bedrails Skilled Intervention Provided: monitoring patient response with activity For: fall prevention, efficient movement, safe use of bedrails and/or equipment Resulting In: improved activity tolerance, improved performance, improved functional independence, improved safety, increased initiation in mobility task(s) Functional Transfers Sit to Stand: Minimal assist (from EOB) Algorithm Developer: wheeled walker Skilled Intervention Provided: monitoring patient [...] Home Living: pt was at rehab in [place] for a hip fracture sustained~ 1 month ago. pt came to [facility] from [facility] Prior Level of Function Receives Help From: Spouse Level of [place] - Transfers/Ambulation/Mobility: Independent with functional transfers, Independent with household ambulation, Independent with community ambulation Level of [place] - ADLs: Independent Level of [place] - Homemaking: Independent Driving: Patient does not [...] Direct Patient Care: 30 Narrative: While rounding, traveling accountant visited with Stevo. He shared the nature [...] see him multiple times since his stay. Stveo also shared the hobbies he wishes he could return to post his medical stay (fishing). Account Clerk providing a listening ear while Stevo shared his anxiety of the unknown of what was going on with his kidney's. Account Clerk continued to provide emotional/spiritual support while Stevo requested prayer. Account Clerk prayed and let Stevo know that the pastoral care team was ready and available to help with emotional/spiritual support during his visit. Pastoral Care team will remain available to support patient and family PRN. No family was present during the visit. Patient's Response to Pastoral Care: Planning for Future Visits: PRN, Pt aware to contact Account Clerk as needed 05/05/21 1125 Visit Background Visit With Patient Visit By Student Account Clerk Visit Progression Introduction Visit Requested By Account Clerk Initiated Visit Source Account Clerk Initiated Visit Type Inpatient;Rounding Visit Circumstances and Events Routine Visit Visit Length (minutes) 30 Visit Planning PRN;Pt aware to contact Account Clerk as needed Spiritual Assessment Assessed during this visit Shinto Assessment Unable to Assess during this visit Family assessment provided? Unable to asess during this visit Patient Spiritual Needs Assessment Sources of Connection Son;Spouse (Son(s) - two of them ) Belief Practices Prayer Image of the Operations Accountant;Love (The Good Lord) Role of the Divine [...] Spiritual Support;Receive Comfort;Regain Sense of Normalcy Akhil Fredericklain Human Resources Operations Manager [facility] 22/05 On-Call * Lance MonteroZELDA - 05/05/2021 10:20 AM EDT Physical Therapy [...] Standing Balance - Static: Contact guard assist Algorithm Developer - Standing Static: wheeled walker Standing Balance - Dynamic: Contact guard assist Algorithm Developer - Standing Dynamic: wheeled walker Standing Balance [...] assist Stand Pivot Transfers: Contact guard assist Algorithm Developer: wheeled walker Skilled Intervention Provided: verbal cues, [...] Home Living: pt was at rehab in [place] for a hip fracture sustained~ 1 month ago. pt came to [facility] from [facility] Prior Level of Function Receives Help From: Spouse Level of [place] - Transfers/Ambulation/Mobility: Independent with functional transfers, Independent with household ambulation, Independent with community ambulation Level of [place] - ADLs: Independent Level of [place] - Homemaking: Independent Driving: Patient does not [...] medicine Inpatient Follow-up 05/05/2021 Bryce Alvarez MD [facility] Patient: Stevo Germain Date of : 1950 [...] AM: Laboratory, Medications and Transcriptions * Yessica Luna MSW LSW - 05/04/2021 3:10 PM EDT DISCHARGE PLAN PROGRESS NOTE Date: 05/04/2021 Time: 3:10 PM Updated therapy notes sent to in-basket. A message was left for Brii with [facility] at [facility]. Patient Name: Stevo Germain Date of : 1950 Sex: Male [facility] Disposition D/C Disposition: Halfway Facility Agency/Destination: [facility] Estimated Length of Stay (ELOS): 16 ELOS Discussed with Patient / Family?: Yes Anticipated Discharge Plan Anticipated HME: None Anticipated Home Care Needs: None Anticipated Facility Type: [facility] facility * Lance Montero PTA - 05/04/2021 [...] Standing Balance - Dynamic: Contact guard assist Algorithm Developer - Standing Dynamic: wheeled walker Standing Balance [...] assist Bed to Chair: Contact guard assist Algorithm Developer: wheeled walker Skilled Intervention Provided: verbal cues, [...] Home Living: pt was at rehab in [place] for a hip fracture sustained~ 1 month ago. pt came to [facility] from [facility] Prior Level of Function Receives Help From: Spouse Level of [place] - Transfers/Ambulation/Mobility: Independent with functional transfers, Independent with household ambulation, Independent with community ambulation Level of [place] - ADLs: Independent Level of [place] - Homemaking: Independent Driving: Patient does not [...] Male Patient Information Primary Caregiver: Other (Comment) ([facility]) Per Dr Alvarez, precert can be started to return to [facility] [place]. Source of Information: Patient, Significant Other Living Arrangements: Facility Support Systems: Spouse/significant other Assistance Needed: Moderate Type of Residence: alf Care Facility Name: [facility] Prior to Admission Home Care Services: Yes Type of Current Home Care Services: Home health care Patient expects to be discharged to:: [facility] Does the patient need discharge transport arranged?: Yes [facility] Disposition D/C Disposition: Halfway Facility Agency/Destination: [facility] Estimated Length of Stay (ELOS): 16 ELOS [...] vascular. hospitalized in January of 2017 at [facility] in [place]. He had nausea and some abdominal pain, warm feeling from his head down through his body, perhaps some chest discomfo Arthritis Carotid artery occlusion CKD (chronic kidney disease) Stage III Closed fracture of left orbital floor ([facility]) 06/10/2020 Closed fracture of multiple ribs of left side 06/10/2020 COPD (chronic obstructive pulmonary disease) ([facility]) Diabetes mellitus ([facility]) TYPE 2 Essential tremor Fall down stairs 04/14/2020 History of pneumonia Hyperlipidemia Hypertension Left carotid artery stenosis 03/30/2016 Leg cramps Leg heaviness MGUS (monoclonal gammopathy of unknown significance) Peptic ulcer disease PVD (peripheral vascular disease) ([facility]) Rhabdomyolysis 2009 Statin intolerance 04/01/2019 ??? Rhabdomyolysis in past. Stroke ([facility]) 2009 R side Height: 5' 7.5" Current [...] Daily heparin (porcine) 5,000 Units Subcutaneous Q8H [facility] insulin glargine 16 Units Subcutaneous Nightly lispro [...] Infusions: sodium chloride 0.9 % Stopped (05/03/21 5173) Estimated Energy Needs Total Energy Estimated Needs: [...] in place for patient to return to [facility] at discharge. Patient will requirenew precert. Patient Name: Stevo Germain Date of : 1950 Sex: Male [facility] Disposition D/C Disposition: Halfway Facility Agency/Destination: [facility] Estimated Length of Stay (ELOS): 16 ELOS Discussed with Patient / Family?: Yes * Bryce Alvarez MD - 05/03/2021 10:26 AM EDT Internal medicine Inpatient Follow-up 05/03/2021 Bryce Alvarez MD [facility] Patient: Stevo Germain Date of : 1950 [...] disease, with long-term current use of insulin ([facility]) Assessment & Plan Blood sugar is stable. Essential hypertension Assessment & Plan Blood pressure is better. Anemia due to stage 3a chronic kidney disease (HCC) Assessment & Plan Repeat lab ordered for tomorrow Urinary tract infection associated with indwelling urethral catheter ([facility]) Assessment & Plan Resolved. Urinary retention Assessment & Plan Confirmed by post void residual. Chronic obstructive pulmonary disease (HCC) Assessment & Plan Stable Summary of assessment and Plan patient clinically stable patient did have post void residual significant with increased creatinine. Now Diego is placed back will discontinue IV fluids and IV antibiotic if BUN/creatinine is stable will plan discharge to long-term tomorrow. SUBJECTIVE: History Since Last Visit: Patient [...] Microbiology, Cardiology, Medications and Transcriptions * Fransisca Johnson RPh,PharmD - 05/03/2021 12:54 AM EDT PHARMACOTHERAPY NOTE: [...] Pennington MD - 05/02/2021 8:34 AM EDT [facility] Medicine Inpatient Follow-up 05/02/2021 Don Pennington MD [facility] Patient: Stevo Germain Date of : 1950 (71 y.o.) PCP: Phyllis Mae MD ASSESSMENT/PLAN: Principal Problem: Sepsis with acute renal failure without septic shock ([facility]) Active Problems: Type 2 diabetes mellitus with [...] medicine Inpatient Follow-up 05/01/2021 Bryce Alvarez MD [facility] Patient: Stevo Germain Date of : 1950 (71 y.o.) PCP: Phylils Mae MD ASSESSMENT/PLAN: Stevo Germain 71 y.o. male * Sepsis with acute renal failure without septic shock ([facility]) Assessment & Plan Probable source of infection urinary tract infection. Urine culture growing Staph aureus,yeast and enterococci Plan continue vancomycin and Diflucan. Repeat urine culture sent. Type 2 diabetes mellitus with stage 3b chronic kidney disease, with long-term current use of insulin ([facility]) Assessment & Plan Blood sugar is stable. Essential hypertension Assessment & Plan Blood pressure is better. Anemia due to stage 3a chronic kidney disease ([facility]) Assessment & Plan Monitor hemoglobin. Urinary tract infection associated with indwelling urethral catheter ([facility]) Assessment & Plan Source of sepsis. Plan continue IV antibiotic and antifungal treatment. Urinary retention Assessment & Plan Plan bladder training and discontinue Diego monitor for difficulty in urinating and residual urine.May repeat ultrasound of kidney and bladder without Diego before discharge. Chronic obstructive pulmonary disease ([facility]) Assessment & Plan Stable Summary of assessment and Plan plan continue IV antibiotic and antifungal. DC Diego look for any evidence of obstruction or difficulty urinating if none will do ultrasound ofthe kidney and bladder before discharging back to long-term. Called his and updated the plan. SUBJECTIVE: [...] Pennington MD - 04/30/2021 8:18 AM EDT [facility] Inpatient Follow-up 04/30/2021 Don Pennington MD [facility] Patient: Stevo Germain Date of : 1950 [...] acute renal failure and released to the long-term. Stable type 2 diabetes mellitus Stable chronic [...] RN - 04/29/2021 2:06 PM EDT 04/29/21 7694 General Care Management Assessment completed with: Patient;Spouse or significant other Living arrangement: Facility ([facility]) Support system: Significant other Type of residence: alf Was Home Health ordered? No Was Durable Medical Equipment (DME) ordered? No Bed or wheelchair confined: No Diet: Diabetic diet Inadequate nutrition: No Medication adherence problem: No Experiencing side effects from current medications: No History of falls in last 6 months: (!) Yes Difficulty keeping appointments: No Family aware of the patient's advance care planning wishes: Yes Shinto or spiritual beliefs that impact treatment: No [...] Met with patient and spouse. Admitted from [facility] where he is currently receiving therapy with plan to return home when stronger. * Lisa Canas, RD - 04/29/2021 11:08 AM EDT CHART REVIEW Reason for visit: Dietitian Screen d/t BMI of 21.14. Current diet order: ALEXSANDRA, renal Diet Current oral nutrition supplement: n/a Recent intake: 75%-100%X, 25%-50%X1. Dx/Pertinent clinical information: Past Medical History: Diagnosis Date Arthritis Carotid artery occlusion CKD (chronic kidney disease) Stage III COPD (chronic obstructive pulmonary disease) ([facility]) Diabetes mellitus ([facility]) TYPE 2 Essential tremor History of pneumonia Hyperlipidemia Hypertension Left carotid artery stenosis 03/30/2016 Leg cramps Leg heaviness MGUS (monoclonal gammopathy of unknown significance) Peptic ulcer disease PVD (peripheral vascular disease) ([facility]) Rhabdomyolysis 2009 Stroke ([facility]) 2009 R side Height: 5' 7.5" Current [...] 1 Encounters: 04/27/21 62.1 kg (137 lb) [place] body weight: 67.2 kg (148 lb 4.1 [...] Catch) = NGTD 04/27/21 (Blood) = NGTD 06/30/21 (Urine) = Pending Pharmacist: Kenna Quintero RPh,PharmD Contact Number: [phone] * Brenda Peña MD - 04/28/2021 1:42 PM EDT [facility] Medicine Inpatient Follow-up 04/28/2021 Brenda Peña MD [facility] Patient: Stevo Germain Date of : 1950 (71 y.o.) PCP: Phyllis Mae MD ASSESSMENT/PLAN: Stevo Germain 71 y.o. male residing in a long-term is known for chronic kidney disease stage III with baseline creatinine of 1.1-1.2 history of peripheral vascular disease and carotid artery occlusion COPD history of diabetes mellitus hypertension the hyperlipidemia essential tremor MGUS and pep tic ulcer disease previous stroke and rhabdomyolysis is here due to weakness has chronic Diego catheter, Principal Problem: ELBA (acute kidney injury) ([facility]) PLAN: Urinary tract infection Urine culture growing [...] IMAGING: Reviewed 1:42 PM documented in this [id number] Hospital Discharge instructions * Discharge Instr - IP OT* Vonda Herrera OTA - 05/05/2021 1:12 PM EDT Please issue sock aid at discharge. 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 [...] x2) Bed to Chair Transfers: Minimal assist Algorithm Developer: wheeled walker Home Living Obtained Home Living [...] Home Living: pt was at rehab in [place] for a hip fracture sustained~ 1 month ago. pt came to [facility] Prior Level of Function Receives Help From: Spouse Level of [place] - Transfers/Ambulation/Mobility: Independent with functional transfers, Independent with household ambulation, Independent with community ambulation Level of [place] - ADLs: Independent Level of [place] - Homemaking: Independent Driving: Patient does not drive Subjective Impression - Prior Function: Pt's spouse works pediatrician managing partner outside of the home. For the past ~1 month, pt has been at [facility] for rehab for hip fx. Past Medical History: Diagnosis Date Abnormal stress test 04/21/2016 Dobutamine stress echo October 2018 negative for ischemia at a very low submaximal heart rate reviewed. Normal LV function No history of SD. Stage III renal insufficiency Remote history of CVA Follows with vascular. hospitalized in January of 2017 at [facility] in [place]. He had nausea and some abdominal pain, warm feeling from his head down through his body, perhaps some chest discomfo Arthritis Carotid artery occlusion CKD (chronic kidney disease) Stage III Closed fracture of left orbital floor ([facility]) 06/10/2020 Closed fracture of multiple ribs of left side 06/10/2020 COPD (chronic obstructive pulmonary disease) ([facility]) Diabetes mellitus ([facility]) TYPE 2 Essential tremor Fall down stairs 04/14/2020 History of pneumonia Hyperlipidemia Hypertension Left carotid artery stenosis 03/30/2016 Leg cramps Leg heaviness MGUS (monoclonal gammopathy of unknown significance) Peptic ulcer disease PVD (peripheral vascular disease) ([facility]) Rhabdomyolysis 2010 Statin intolerance 04/01/2019 ??? Rhabdomyolysis in past. Stroke ([facility]) 2010 R side Past Surgical History: Procedure Laterality Date carotid angio 2010 HAND SURGERY Right 2009 IM NAILING FEMUR Right 04/07/2021 Procedure: RIGHT TFN; Surgeon: Dylon Galindo MD; Location: Main OR; Service: Orthopedic [place] THROMBOENDARTECTMY NECK,NECK INCIS Right 2009 SHOULDER OPEN [...] is a 71 y.o. male presenting from long-term with complaint of decreased level of consciousness [...] Standing Balance - Static: Contact guard assist Algorithm Developer - Standing Static: wheeled walker Bed Mobility Rolling: Modified independent Supine to Sit: Modified independent Sit to Supine: Modified independent Transfers Sit to Stand: Minimal assist Bed to Chair: Minimal assist Stand Pivot Transfers: Minimal assist Algorithm Developer: wheeled walker Gait/Locomotion Gait Assistance: Minimal assist Assistive Device: wheeled walker Distance: 3 Feet Pattern: step to Home Living Obtained Home Living and PLOF info from: Patient Lives With: Spouse Type of Home: House Home Layout: One level, Laundry in basement Steps to enter home: Ramped entrance Additional Objective Details - Home Living: pt was at rehab in [place] for a hip fracture sustained~ 1 month ago. pt came to [facility] Prior Level of Function Receives Help From: Spouse Level of [place] - Transfers/Ambulation/Mobility: Independent with functional transfers, Independent with household ambulation, Independent with community ambulation Level of [place] - ADLs: Independent Level of [place] - Homemaking: Independent Driving: Patient does not [...] vascular. hospitalized in January of 2017 at [facility] in [place]. He had nausea and some abdominal pain, warm feeling from his head down through his body, perhaps some chest discomfo Arthritis Carotid artery occlusion CKD (chronic kidney disease) Stage III Closed fracture of left orbital floor ([facility]) 06/10/2020 Closed fracture of multiple ribs of left side 06/10/2020 COPD (chronic obstructive pulmonary disease) ([facility]) Diabetes mellitus ([facility]) TYPE 2 Essential tremor Fall down stairs 04/14/2020 History of pneumonia Hyperlipidemia Hypertension Left carotid artery stenosis 03/30/2016 Leg cramps Leg heaviness MGUS (monoclonal gammopathy of unknown significance) Peptic ulcer disease PVD (peripheral vascular disease) ([facility]) Rhabdomyolysis 2010 Statin intolerance 04/01/2019 ??? Rhabdomyolysis in past. Stroke ([facility]) 2010 R side Past Surgical History: Procedure Laterality Date carotid angio 2010 HAND SURGERY Right 2009 IM NAILING FEMUR Right 04/07/2021 Procedure: RIGHT TFN; Surgeon: Dylon Galindo MD; Location: Main OR; Service: Orthopedic FL THROMBOENDARTECTMY NECK,NECK INCIS Right 2009 SHOULDER OPEN [...] Male Patient Information Primary Caregiver: Other (Comment) ([facility]) Admitted from [facility], positive for UTI, started on IV antibiotics. Plan is to return there at discharge. Spoke with admissions at [facility], he will need precert to return. PT/OT ordered. Source of Information: Patient, Significant Other Living Arrangements: Facility Support Systems: Spouse/significant other Assistance Needed: Moderate Type of Residence: alf Care Facility Name: [facility] Prior to Admission Home Care Services: Yes Type of Current Home Care Services: Home health care Patient expects to be discharged to:: [facility] Does the patient need discharge transport arranged?: Yes [facility] Disposition D/C Disposition: Halfway Facility Agency/Destination: [facility] Estimated Length of Stay (ELOS): 16 ELOS Discussed with Patient / Family?: Yes * Bhavani Baptiste RN - 04/28/2021 10:26 AM EDT Associated Order(s): ED CONSULT TO 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 Germain was recently a patient here at [facility]. He was admitted on 04/05 and returnedto [facility] for continued rehab on 04/16. He [...] remains in the ED. documented in this [id number] History and physical note* Bryce Alvarez MD - 04/29/2021 6:43 PM EDT Internal Medicine Inpatient H&P 04/29/2021 Bryce Alvarez MD [facility] Patient: Stevo Germain Date of : 1950 [...] disease, with long-term current use of insulin ([facility]) Assessment & Plan Monitor blood sugar. Essential hypertension Assessment & Plan Blood pressure not under control added nifedipine. Anemia due to stage 3a chronic kidney disease ([facility]) Assessment & Plan Monitor hemoglobin. Urinary tract [...] is a 71 y.o. male presenting from long-term with complaint of decreased level of consciousness and abnormal lab. Patient recently was discharged after meeting treatment for sepsis secondary to urinary tract infection that admission was complicated by a fall and femur fracture. Patient had surgery for the same and prolonged hospital course. On discharge patient was doing well at the long-term had urology follow-up for urinary obstruction as [...] vascular. hospitalized in January of 2017 at [facility] in [place]. He had nausea and some abdominal pain, warm feeling from his head down through his body, perhaps some chest discomfo Arthritis Carotid artery occlusion CKD (chronic kidney disease) Stage III Closed fracture of left orbital floor ([facility]) 06/10/2020 Closed fracture of multiple ribs of left side 06/10/2020 COPD (chronic obstructive pulmonary disease) ([facility]) Diabetes mellitus ([facility]) TYPE 2 Essential tremor Fall down stairs 04/14/2020 History of pneumonia Hyperlipidemia Hypertension Left carotid artery stenosis 03/30/2016 Leg cramps Leg heaviness MGUS (monoclonal gammopathy of unknown significance) Peptic ulcer disease PVD (peripheral vascular disease) ([facility]) Rhabdomyolysis 2009 Statin intolerance 04/01/2019 ??? Rhabdomyolysis in past. Stroke ([facility]) 2010 R side Past Surgical History: Procedure Laterality Date carotid angio 2010 HAND SURGERY Right 2009 IM NAILING FEMUR Right 04/07/2021 Procedure: RIGHT TFN; Surgeon: Dylon Galindo MD; Location: Main OR; Service: Orthopedic FL THROMBOENDARTECTMY NECK,NECK INCIS Right 2010 SHOULDER OPEN [...] (60 mg total) by mouth daily . nmywnujn-yvsh-PJ-calcium-mins 9 mg iron-400 mcg Tab, Take 1 [...] Reilly MD - 04/27/2021 9:48 PM EDT [facility] Medicine Inpatient H&P 04/27/2021 Geraldine Reilly MD [facility] Patient: Stevo Germain Date of : 1950 (71 y.o.) PCP: Phyllis Mae MD Assessment Stevo Germain is a 71 y.o. male residing in a long-term is known for chronic kidney disease stage [...] a 71 y.o. male residing in a long-term is known for chronic kidney disease stage [...] pain or vomiting. Again the patient'sat the long-term for rehab. Patient presents with abnormal potassium Review of Systems: 10 systems reviewed and negative other than noted in HPI History: Past Medical History: Diagnosis Date Arthritis Carotid artery occlusion CKD (chronic kidney disease) Stage III COPD (chronic obstructive pulmonary disease) ([facility]) Diabetes mellitus (HCC) TYPE 2 Essential tremor History of pneumonia Hyperlipidemia Hypertension Left carotid artery stenosis 03/30/2016 Leg cramps Leg heaviness MGUS (monoclonal gammopathy of unknown significance) Peptic ulcer disease PVD (peripheral vascular disease) ([facility]) Rhabdomyolysis 2009 Stroke ([facility]) 2009 R side Past Surgical History: Procedure Laterality Date carotid angio 2010 HAND SURGERY Right 2009 IM NAILING FEMUR Right 04/07/2021 Procedure: RIGHT TFN; Surgeon: Dylon Galindo MD; Location: Main OR; Service: Orthopedic FL THROMBOENDARTECTMY NECK,NECK INCIS Right 2010 SHOULDER OPEN [...] (two) times a day with meals . jlnzxxtu-tuuf-HK-calcium-mins 9 mg iron-400 mcg Tab Take 1 [...] IMAGING: Reviewed 9:48 PM documented in this [id number] Emergency department Note* Edwin Zelaya RN - 04/28/2021 11:48 AM EDT Provided update to [facility] [place]. 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 [facility] EM[facility]GENCY [facility] PCP - Phyllis Mae [...] abnormal potassium. Patient is residing at the [facility]. Patient presents by EMS squad for [...] or vomiting. Again the patient's at the long-term for rehab. Patient presents with abnormal p otassium MEDICAL DECISION MAKING This is a 71-year-old male from a long-term multiple medical problems including history of CVA [...] ms QTC Calculation (Bezet) 390 ms P [place] 65 degrees R [place] 67 degrees T [place] 77 degrees POC Venous Blood Gas Panel-Pulm [...] 500 mL (500 mL Intravenous New Bag 04/27/21 1724) sodium chloride 0.9% (NS) (has no administration in time range) cefTRIAXone (ROCEPHIN) IVPB 1 g (premix) (1,000 mg Intravenous New Bag 04/27/21 1724) loratadine (CLARITIN) tablet 10 mg (has [...] segments normal T Waves: T waves normal FL Interval: 182 QRS Interval: 84 QT Interval: [...] Galindo MD; Location: Main OR; Service: Orthopedic FL THROMBOENDARTECTMY NECK,NECK INCIS Right 2009 SHOULDER OPEN [...] on file Occupational History Occupation: Disability Comment: [employer] Tobacco Use Smoking status: Current Every Day [...] Social Gatherings with Friends and Family: Attends Shinto Services: Active Member of Clubs or Organizations: [...] medications on file Lev Stockton MD 04/27/21 1733 * Lizbeth Tadeo RN - 04/27/2021 3:09 PM EDT Patient presents per EMS for abnormal labs. Per EMS K+ was 5.7 yesterday, had a liter fluid and today level was 6.5. Denies any chest pain or SOB. * Nan Egna RN - 04/27/2021 3:09 PM EDT Bed: 10 Expected date: Expected time: Means of arrival: Comments: [place] documented in this [id number] History of Present illness Narrative* Kateryna Yeboah CNP - 04/26/2021 1:14 PM EDT Images from the original note were not included. Progress Note [facility] [address] [place] [address] [facility] [address] [place], [place] [id number] [facility] 04/26/2021 Kateryna Yeboah CNP Provider Location:[facility] Patient Location Windows Server Administrator: None Patient Location: [facility] ([place] Patient: Stevo Germain Date of : 1950 [...] Stage III COPD (chronic obstructive pulmonary disease) ([facility]) Diabetes mellitus ([facility]) TYPE 2 Essential tremor History of pneumonia Hyperlipidemia Hypertension Left carotid artery stenosis 03/30/2016 Leg cramps Leg heaviness MGUS (monoclonal gammopathy of unknown significance) Peptic ulcer disease PVD (peripheral vascular disease) ([facility]) Rhabdomyolysis 2010 Stroke ([facility]) 2010 R side Review of Systems Positives [...] extrapolated by contextual derivation. documented in this [id number] History of Present illness Narrative* Kateryna Yeboah CNP - 04/20/2021 6:16 PM EDT Images from the original note were not included. Progress Note [facility] [address] [facility] PHYSICIAN [facility] [address] [place] [id number] [facility] 04/19/2021 Kateryna Yeboah CNP Provider Location:[facility] Patient Location Windows Server Administrator: None Patient Location: [facility] ([place] Patient: Stevo Germain Date of : 1950 [...] Peptic ulcer disease PVD (peripheral vascular disease) ([facility]) Rhabdomyolysis 2010 Stroke (HCC) 2010 R side Review of Systems Positives [...] extrapolated by contextual derivation. documented in this [id number] Evaluation note* Diagnosis Anemia due to stage [...] history of fall documented in this encounter [id number] History of Present illness Narrative* Kateryna Yeboah CNP - 04/05/2021 2:18 PM EDT Progress Note [facility] [address] [place] [address] [facility] [address] [place], [place] [id number] [facility] 04/05/2021 Kateryna Yeboah CNP Provider Location:[facility] Patient Location Windows Server Administrator: None Patient Location: [facility] ([place]) Patient: Stevo Germain Date of : 1950 [...] is requesting that patient either be [facility] or have x-rays completed. X-ray of right hip was ordered patient is tender to to palpation over the right greater trochanter. No gross abnormalities noted to right hip. Aside from above-noted patient currently denies any concerns. He is sitting up in the recliner he follows simple commands. PERRLA intact. He has bilateral equal grasps. Patient was treated previously at [place] for acute rising creatinine. Creatinine elevated to 3.17 was noted that patient was unable to void Diego catheter was placed with greater than 500 mL output. Creatinine has subsequently improved we will continue to monitor. Patient will need referral to urology. Staff did notify later in day patient was pointing at things that were not present. [facility] reports that VS are stable. [...] Stage III COPD (chronic obstructive pulmonary disease) ([facility]) Diabetes mellitus ([facility]) TYPE 2 Essential tremor History of pneumonia Hyperlipidemia Hypertension Leg cramps Leg heaviness MGUS (monoclonal gammopathy of unknown significance) Peptic ulcer disease PVD (peripheral vascular disease) ([facility]) Rhabdomyolysis 2010 Stroke ([facility]) 2010 R side Review of Systems Positives [...] extrapolated by contextual derivation. documented in this [id number] History of Present illness Narrative* Dylon Galindo MD - 03/24/2021 6:02 PM EDT Dictation on: 03/24/2021 6:02 PM by: DYLON GALINDO [[id number]] documented in this [id number] History of Present illness Narrative* Kateryna Yeboah CNP - 03/22/2021 3:46 PM EDT Progress Note [facility] [address] [place] [address] PHYSICIAN [facility] [address] [place] [address] Physician Group 03/22/2021 Kateryna Yeboah CNP Provider Location:[facility] Patient Location Windows Server Administrator: None Patient Location: [facility] ([place] Patient: Stevo Germain Date of : 1950 [...] Peptic ulcer disease PVD (peripheral vascular disease) ([facility]) Rhabdomyolysis 2010 Stroke ([facility]) 2010 R side Review of Systems Positives [...] extrapolated by contextual derivation. documented in this [id number] History of Present illness Narrative* Kateryna Yeboah CNP - 03/15/2021 9:21 PM EDT Progress Note [facility] [address] [place] [address] PHYSICIAN [facility] [address] [place] [address] Physician [facility] 03/15/2021 Kateryna Yeboah CNP Provider Location:[facility] Patient Location Windows Server Administrator: None Patient Location: [facility] ([place] Patient: Stevo Germain Date of : 1950 [...] did have some delirium when presenting to long-term. After review of hospital records it does [...] Stage III COPD (chronic obstructive pulmonary disease) ([facility]) Diabetes mellitus ([facility]) TYPE 2 Essential tremor History of pneumonia Hyperlipidemia Hypertension Leg cramps Leg heaviness MGUS (monoclonal gammopathy of unknown significance) Peptic ulcer disease PVD (peripheral vascular disease) ([facility]) Rhabdomyolysis 2010 Stroke ([facility]) 2010 R side Review of Systems Positives [...] extrapolated by contextual derivation. documented in this [id number] History of Present illness NarrativeMED REFILL. F/U AFTER HOSPITAL STAY ([facility] , 4 TIMES WITHIN LAST 3 [...] OR TRAMADOL FOR PAIN .HAS F/U WITH [employer] AND [facility] ORTH[facility]ED[facility] . .PER PT AND HE QUIT ETOH SINCE HOSPITAL STAY.AND CUT BACK ON SMOKING . HAS POOR APPETITE, WEIGHT LOSS , CHRONIC FATIGUE. STOPPED USING THE O2FOR HYPOXEMIA HOME HEALTH EVALUATIONS (WAS D/C FROM [place] [facility]) .CURRENTLY HAS HOME HEALTH AND GETS PHYSICAL TX AT HOME. AORTIC ANEURYSM AND DEPRESSION/ ANXIETY HAVE BEEN STABLE. [facility] Work Phone: [phone]) 305-266505-04-2021 History of Present illness NarrativeMED REFILL. F/U AFTER HOSPITAL STAY ([facility] , 4 TIMES WITHIN LAST 3 [...] OR TRAMADOL FOR PAIN .HAS F/U WITH [employer] AND ENDO AND ORTHOPEDICS . .PER PT AND HE QUIT ETOH SINCE HOSPITAL STAY.AND CUT BACK ON SMOKING . HAS POOR APPETITE, WEIGHT LOSS , CHRONIC FATIGUE. STOPPED USING THE O2FOR HYPOXEMIA HOME HEALTH EVALUATIONS (WAS D/C FROM [place] [facility]) .CURRENTLY HAS HOME HEALTH AND GETS PHYSICAL TX AT HOME. AORTIC ANEURYSM AND DEPRESSION/ ANXIETY HAVE BEEN STABLE. [facility] Work Phone: [phone]) 920-526705-03-2021 History of Present illness NarrativeF/U ON CAROTID DOPPLER AND U/S OF ABDOMINAL AORTA. . DIDN'T FINISH THE PHYSICAL TX LAST YEAR. HAS B/L LEG WEAKNESS . HAD NO RECENT FALLS.. PT IS ASYMPTOMATIC WITH HAVING VASCULAR MYELOPATHY , COPD HAS BEEN STABLE.. STILL DRINKS ETOH, BUT LESS FREQUENT.[facility] Work Phone: [phone] Telephone encounter Note* Telephone Encounter - Armand Can MA - 05/07/2019 8:05 AM EDT This medication was d/c 10/2017. Refused this medication. [id number] Miscellaneous Notes* Telephone Encounter - Armand Can MA - 05/07/2019 8:05 AM EDT This medication was d/c 10/2017. Refused this medication. 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 PT CUT BACK ON ETOH AND SMOKING , BUT HASN'T COMPLETELY STOPPED THEM YET .PT IS HERE WITH .[facility] Internal Medicine Work Phone: [phone] History of Present illness NarrativeCHEST PAIN B/L WITH RADIATIONS TO L ARM WITH SEVERITY OF 5/10 LASTING AROUND 5 MINUTES ON AND OFF XSEVERAL WEEKS. NOTHING MAKES THE PAIN BETTER OR WORSE. HAS OC IN 1 WEEK WITH [employer] AND WANT TO WAIT UNTIL THAT VISIT FOR CARDIAC EVALUATIONS. HAS EPIGASTRIC ABDOMINAL PAIN 4-5/10 ON AND OFF X SEVERAL WEEKS. NEEDS NEBULIZER MASK AND TUBE. NEEDS FLU SHOT TODAY.[facility] Work Phone: Evaluation note* Diagnosis Claudication of lower extremity (HCC)- [facility] Diagnosis Chronic obstructive pulmonary disease, unspecified COPD type ([facility])- Primary PVD (peripheral vascular disease) ([facility]) Unspecified peripheral vascular disease PAD (peripheral artery disease) ([facility]) Unspecified peripheral vascular disease Closed fracture of right hip with routine healing, subsequent encounter Tobacco use Type 2 diabetes mellitus with other specified complication, with long-term current use of insulin ([facility]) [facility]* Diagnosis Type 2 diabetes mellitus with other specified complication, with long-term current use of insulin ([facility])- Primary [facility]* Diagnosis Closed displaced fracture of greater trochanter of right femur with routine healing, subsequent encounter- Primary [facility]* Diagnosis Type 2 diabetes mellitus with other specified complication, with long-term current use of insulin ([facility])- Primary Chronic obstructive pulmonary disease, unspecified COPD type ([facility]) Closed fracture of right hip with routine [...] disease, with long-term current use of insulin ([facility])- Primary Elevated serum creatinine Other nonspecific findings on examination of blood Urinary retention Unspecified retention of urine [facility]* Diagnosis Acute renal failure superimposed on chronic kidney disease, unspecified CKD stage, unspecified acute renal failure type ([facility]) Hyperkalemia Hyperpotassemia Acute UTI Urinary tract infection, site not specified H/O: CVA (cerebrovascular accident) Metabolic encephalopathy Neck pain Cervicalgia PAD (peripheral artery disease) ([facility]) Unspecified peripheral vascular disease PVD (peripheral vascular disease) ([facility]) Unspecified peripheral vascular disease Type 2 diabetes mellitus with stage 3b chronic kidney disease, with long-term current use of insulin ([facility]) Essential hypertension Unspecified essential hypertension ELBA (acute kidney injury) ([facility]) Closed displaced intertrochanteric fracture of right femur with routine healing, subsequent encounter Sepsis with acute renal failure without septic shock ([facility]) Anemia due to stage 3a chronic kidney disease ([facility]) Urinary tract infection associated with indwelling urethral catheter ([facility]) Urinary retention Unspecified retention of urine Chronic obstructive pulmonary disease (HCC) [facility] Diagnosis [...] without complications (HCC) [facility]* Diagnosis [...] Abdominal pain, RUQ documented in this encounter [facility] Work Phone: Evaluation note* Diagnosis Atypical parkinsonism [...] Chronic obstructive pulmonary disease, unspecified COPD type ([facility]) Musculoskeletal chest pain Other chest pain Essential tremor [facility]* Diagnosis Type 2 diabetes mellitus with hyperglycemic coma ([facility])- Primary Hyperlipidemia, unspecified hyperlipidemia type Need for influenza vaccination Need for prophylactic vaccination and inoculation against influenza Chronic obstructive pulmonary disease, unspecified COPD type ([facility]) H/O: CVA (cerebrovascular accident) Essential tremor Encounter for vaccination Hypertriglyceridemia Pure hyperglyceridemia documented in this encounter [facility] Work Phone: Evaluation note* Diagnosis Atypical parkinsonism- Primary Diabetic polyneuropathy associated with type 2 diabetes mellitus (HCC) Essential tremor Mild cognitive impairment Mild cognitive impairment, so stated [facility]* Diagnosis Type 2 diabetes mellitus with stage 3b chronic kidney disease, with long-term current use of insulin ([facility])- Primary Dyslipidemia Other and unspecified hyperlipidemia Essential hypertension Unspecified essential hypertension [facility]* Diagnosis Hypertension associated with type 2 diabetes mellitus ([facility])- Primary Type 2 diabetes mellitus with other circulatory complication, with long-term current use of insulin ([facility]) Gait difficulty Abnormality of gait Muscle weakness of lower extremity Muscle weakness (generalized) Recurrent falls Centrilobular emphysema ([facility]) Screening for prostate cancer Special screening for malignant neoplasm of prostate Hypertriglyceridemia Pure hyperglyceridemia Anemia, unspecified type Non-pressure chronic ulcer of other part of right foot with fat layer exposed ([facility]) Vascular myelopathies ([facility]) Vascular myelopathies Depression, major, in remission ([facility]) Thoracic aortic aneurysm without rupture, unspecified part ([facility]) Stage 3b chronic kidney disease ([facility]) Stable angina pectoris Calculus of gallbladder without cholecystitis without obstruction documented in this encounter [facility] Work Phone: Evaluation note* Diagnosis Diabetic foot (HCC)- Primary Type II or unspecified type diabetes mellitus with other specified manifestations, not stated as uncontrolled PVD (peripheral vascular disease) (HCC) Unspecified peripheral [...] disease, with long-term current use of insulin ([facility]) [facility] Diagnosis Hypotension, unspecified hypotension type- Primary Upper respiratory tract infection, unspecified type documented in this encounter [facility] Work Phone: Evaluation note* Diagnosis Routine general medical examination at health care facility- Primary Routine general medical examination at a health care facility Superficial gastritis without hemorrhage, unspecified chronicity Weakness of upper extremity Weakness of both lower extremities Recurrent falls Neck pain Cervicalgia H/O: CVA (cerebrovascular accident) Essential tremor Neurogenic claudication Spinal stenosis of lumbar region Stable angina pectoris ([facility] [facility] Hypertension associated with type 2 diabetes mellitus (Multi) Encounter for vaccination 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Multi) Hypotensive episode documented in this encounter [facility] Work Phone: Evaluation note* Diagnosis Diabetic foot (HCC)- Primary Type II or unspecified type diabetes mellitus with other specified manifestations, not stated as uncontrolled PVD (peripheral vascular disease) (HCC) Unspecified peripheral [...] disease, with long-term current use of insulin ([facility])- [facility] Diagnosis Ingrown toenail- Primary Ingrowing nail Paronychia of great toe PVD (peripheral vascular disease) ([facility]) Unspecified peripheral vascular disease Tobacco use Xerosis of skin Diabetic foot ([facility]) Type II or unspecified type diabetes mellitus with other specified manifestations, not stated as uncontrolled [facility] Onychodystrophy- Primary Other specified disease of nail Onychomycosis Dermatophytosis of nail PVD (peripheral vascular disease) ([facility]) Unspecified peripheral vascular disease Tobacco use Diabetic foot ([facility]) Type II or unspecified type diabetes mellitus with other specified manifestations, not stated as uncontrolled Toe pain, bilateral [facility] Diagnosis Bilateral carotid artery stenosis- Primary Occlusion and stenosis of carotid artery without mention of cerebral infarction PAD (peripheral artery disease) ([facility]) Unspecified peripheral vascular disease History of carotid endarterectomy Other postprocedural status Dyslipidemia Other and unspecified hyperlipidemia Claudication of lower extremity ([facility]) Neurogenic claudication- Primary Spinal stenosis of lumbar region PAD (peripheral artery disease) ([facility]) Unspecified peripheral vascular disease Claudication of lower extremity ([facility]) Bilateral carotid artery stenosis Occlusion and stenosis of carotid artery without mention of cerebral infarction History of carotid endarterectomy Other postprocedural status Occlusion and stenosis of right carotid artery Dyslipidemia Other and unspecified hyperlipidemia Fall, initial encounter- Primary Alcoholic intoxication with complication ([facility]) EtOH dependence ([facility]) Hyperkalemia Hyperpotassemia Acute renal failure superimposed on stage 4 chronic kidney disease, unspecified acute renal failure type ([facility]) Acute UTI Urinary tract infection, site not specified Closed displaced intertrochanteric fracture of right femur with routine healing, subsequent encounter Type 2 diabetes mellitus with stage 3b chronic kidney disease, with long-term current use of insulin ([facility]) Bilateral hip pain Pain in joint, pelvic region and thigh PVD (peripheral vascular disease) ([facility]) Unspecified peripheral vascular disease PAD (peripheral artery disease) ([facility]) Unspecified peripheral vascular disease Chronic obstructive pulmonary disease, unspecified COPD type ([facility]) Alcohol dependence with unspecified alcohol-induced disorder ([facility]) History of cerebrovascular accident Transient ischemic attack (TIA), and cerebral infarction without residual deficits History of fall Personal history of fall Acute renal failure superimposed on chronic kidney disease, unspecified CKD stage, unspecified acute renal failure type Hyperkalemia Hyperpotassemia Acute UTI Urinary tract infection, site not specified H/O: CVA (cerebrovascular accident) Metabolic encephalopathy Neck pain Cervicalgia PAD (peripheral artery disease) ([facility]) Unspecified peripheral vascular disease PVD (peripheral vascular disease) ([facility]) Unspecified peripheral vascular disease Type 2 diabetes mellitus with stage 3b chronic kidney disease, with long-term current use of insulin ([facility]) Essential hypertension Unspecified essential hypertension ELBA (acute kidney injury) ([facility]) Closed displaced intertrochanteric fracture of right femur with routine healing, subsequent encounter ELBA (acute kidney injury) ([facility]) Urinary tract infection associated with indwelling urethral catheter ([facility]) Urinary retention Unspecified retention of urine COPD exacerbation ([facility])- Primary Obstructive chronic bronchitis with exacerbation Acute exacerbation of chronic obstructive pulmonary disease (COPD) ([facility]) Obstructive chronic bronchitis with exacerbation Chronic kidney disease, unspecified CKD stage Fall Unspecified fall Rib pain on left side Acute hypoxemic respiratory failure ([facility]) Stage 3b chronic kidney disease ([facility]) Type 2 diabetes mellitus with stage 3b chronic kidney disease, with long-term current use of insulin ([facility]) PVD (peripheral vascular disease) ([facility]) Unspecified peripheral vascular disease Neurogenic claudication Spinal stenosis of lumbar region Dyslipidemia Other and unspecified hyperlipidemia Anemia due to stage 3a chronic kidney disease ([facility]) Essential hypertension Unspecified essential hypertension Essential tremor Musculoskeletal chest pain Other chest pain Type 2 diabetes mellitus with stage 3b chronic kidney disease, with long-term current use of insulin ([facility])- Primary Dyslipidemia Other and unspecified hyperlipidemia Essential hypertension Unspecified essential hypertension [facility] Diagnosis Bilateral carotid artery stenosis- Primary Occlusion and stenosis of carotid artery without mention of cerebral infarction PAD (peripheral artery disease) ([facility]) Unspecified peripheral vascular disease History of carotid endarterectomy Other postprocedural status Dyslipidemia Other and unspecified hyperlipidemia Claudication of lower extremity ([facility]) Neurogenic claudication- Primary Spinal stenosis of lumbar region PAD (peripheral artery disease) ([facility]) Unspecified peripheral vascular disease Claudication of lower extremity ([facility]) Bilateral carotid artery stenosis Occlusion and stenosis of carotid artery without mention of cerebral infarction History of carotid endarterectomy Other postprocedural status Occlusion and stenosis of right carotid artery Dyslipidemia Other and unspecified hyperlipidemia Fall, initial encounter- Primary Alcoholic intoxication with complication ([facility]) EtOH dependence ([facility]) Hyperkalemia Hyperpotassemia Acute renal failure superimposed on stage 4 chronic kidney disease, unspecified acute renal failure type ([facility]) Acute UTI Urinary tract infection, site not specified Closed displaced intertrochanteric fracture of right femur with routine healing, subsequent encounter Type 2 diabetes mellitus with stage 3b chronic kidney disease, with long-term current use of insulin ([facility]) Bilateral hip pain Pain in joint, pelvic region and thigh PVD (peripheral vascular disease) ([facility]) Unspecified peripheral vascular disease PAD (peripheral artery disease) ([facility]) Unspecified peripheral vascular disease Chronic obstructive pulmonary disease, unspecified COPD type ([facility]) Alcohol dependence with unspecified alcohol-induced disorder ([facility]) History of cerebrovascular accident Transient ischemic attack (TIA), and cerebral infarction without residual deficits History of fall Personal history of fall Acute renal failure superimposed on chronic kidney disease, unspecified CKD stage, unspecified acute renal failure type Hyperkalemia Hyperpotassemia Acute UTI Urinary tract infection, site not specified H/O: CVA (cerebrovascular accident) Metabolic encephalopathy Neck pain Cervicalgia PAD (peripheral artery disease) ([facility]) Unspecified peripheral vascular disease PVD (peripheral vascular disease) ([facility]) Unspecified peripheral vascular disease Type 2 diabetes mellitus with stage 3b chronic kidney disease, with long-term current use of insulin ([facility]) Essential hypertension Unspecified essential hypertension ELBA (acute kidney injury) ([facility]) Closed displaced intertrochanteric fracture of right femur with routine healing, subsequent encounter ELBA (acute kidney injury) ([facility]) Urinary tract infection associated with indwelling urethral catheter ([facility]) Urinary retention Unspecified retention of urine COPD exacerbation ([facility])- Primary Obstructive chronic bronchitis with exacerbation Acute exacerbation of chronic obstructive pulmonary disease (COPD) ([facility]) Obstructive chronic bronchitis with exacerbation Chronic kidney disease, unspecified CKD stage Fall Unspecified fall Rib pain on left side Acute hypoxemic respiratory failure ([facility]) Stage 3b chronic kidney disease ([facility]) Type 2 diabetes mellitus with stage 3b chronic kidney disease, with long-term current use of insulin ([facility]) PVD (peripheral vascular disease) ([facility]) Unspecified peripheral vascular disease Neurogenic claudication Spinal stenosis of lumbar region Dyslipidemia Other and unspecified hyperlipidemia Anemia due to stage 3a chronic kidney disease ([facility]) Essential hypertension Unspecified essential hypertension Essential tremor Chest pain, unspecified type- Primary History of CVA (cerebrovascular accident) Transient ischemic attack (TIA), and cerebral infarction without residual deficits Essential hypertension Unspecified essential hypertension PVD (peripheral vascular disease) ([facility]) Unspecified peripheral vascular disease [facility] Bilateral carotid artery stenosis- Primary Occlusion and stenosis of carotid artery without mention of cerebral infarction PAD (peripheral artery disease) ([facility]) Unspecified peripheral vascular disease History of carotid endarterectomy Other postprocedural status Dyslipidemia Other and unspecified hyperlipidemia Claudication of lower extremity ([facility]) Neurogenic claudication- Primary Spinal stenosis of lumbar region PAD (peripheral artery disease) ([facility]) Unspecified peripheral vascular disease Claudication of lower extremity ([facility]) Bilateral carotid artery stenosis Occlusion and stenosis of carotid artery without mention of cerebral infarction History of carotid endarterectomy Other postprocedural status Occlusion and stenosis of right carotid artery Dyslipidemia Other and unspecified hyperlipidemia Fall, initial encounter- Primary Alcoholic intoxication with complication ([facility]) EtOH dependence ([facility]) Hyperkalemia Hyperpotassemia Acute renal failure superimposed on stage 4 chronic kidney disease, unspecified acute renal failure type ([facility]) Acute UTI Urinary tract infection, site not specified Closed displaced intertrochanteric fracture of right femur with routine healing, subsequent encounter Type 2 diabetes mellitus with stage 3b chronic kidney disease, with long-term current use of insulin ([facility]) Bilateral hip pain Pain in joint, pelvic region and thigh PVD (peripheral vascular disease) ([facility]) Unspecified peripheral vascular disease PAD (peripheral artery disease) ([facility]) Unspecified peripheral vascular disease Chronic obstructive pulmonary disease, unspecified COPD type ([facility]) Alcohol dependence with unspecified alcohol-induced disorder ([facility]) History of cerebrovascular accident Transient ischemic attack (TIA), and cerebral infarction without residual deficits History of fall Personal history of fall Acute renal failure superimposed on chronic kidney disease, unspecified CKD stage, unspecified acute renal failure type Hyperkalemia Hyperpotassemia Acute UTI Urinary tract infection, site not specified H/O: CVA (cerebrovascular accident) Metabolic encephalopathy Neck pain Cervicalgia PAD (peripheral artery disease) ([facility]) Unspecified peripheral vascular disease PVD (peripheral vascular disease) ([facility]) Unspecified peripheral vascular disease Type 2 diabetes mellitus with stage 3b chronic kidney disease, with long-term current use of insulin ([facility]) Essential hypertension Unspecified essential hypertension ELBA (acute kidney injury) ([facility]) Closed displaced intertrochanteric fracture of right femur with routine healing, subsequent encounter ELBA (acute kidney injury) ([facility]) Urinary tract infection associated with indwelling urethral catheter ([facility]) Urinary retention Unspecified retention of urine COPD exacerbation ([facility])- Primary Obstructive chronic bronchitis with exacerbation Acute exacerbation of chronic obstructive pulmonary disease (COPD) ([facility]) Obstructive chronic bronchitis with exacerbation Chronic kidney disease, unspecified CKD stage Fall Unspecified fall Rib pain on left side Acute hypoxemic respiratory failure (HCC) Stage 3b chronic kidney disease (HCC) Type 2 diabetes mellitus with stage 3b chronic kidney disease, with long-term current use of insulin (HCC) PVD (peripheral vascular disease) ([facility]) Unspecified peripheral vascular disease Neurogenic claudication Spinal [...] disease, with long-term current use of insulin ([facility])- [facility] Diagnosis Bilateral carotid artery stenosis- Primary Occlusion and stenosis of carotid artery without mention of cerebral infarction PAD (peripheral artery disease) ([facility]) Unspecified peripheral vascular disease History of carotid endarterectomy Other postprocedural status Dyslipidemia Other and unspecified hyperlipidemia Claudication of lower extremity ([facility]) Neurogenic claudication- Primary Spinal stenosis of lumbar region PAD (peripheral artery disease) ([facility]) Unspecified peripheral vascular disease Claudication of lower extremity (HCC) Bilateral carotid artery stenosis Occlusion and stenosis of carotid artery without mention of cerebral infarction History of carotid endarterectomy Other postprocedural status Occlusion and stenosis of right carotid artery Dyslipidemia Other and unspecified hyperlipidemia Fall, initial encounter- Primary Alcoholic intoxication with complication (HCC) EtOH dependence ([facility]) Hyperkalemia Hyperpotassemia Acute renal failure superimposed on stage 4 chronic kidney disease, unspecified acute renal failure type ([facility]) Acute UTI Urinary tract infection, site not specified Closed displaced intertrochanteric fracture of right femur with routine healing, subsequent encounter Type 2 diabetes mellitus with stage 3b chronic kidney disease, with long-term current use of insulin (HCC) Bilateral hip pain Pain in joint, pelvic region and thigh PVD (peripheral vascular disease) ([facility]) Unspecified peripheral vascular disease PAD (peripheral artery disease) ([facility]) Unspecified peripheral vascular disease Chronic obstructive pulmonary disease, unspecified COPD type ([facility]) Alcohol dependence with unspecified alcohol-induced disorder ([facility]) History of cerebrovascular accident Transient ischemic attack (TIA), and cerebral infarction without residual deficits History of fall Personal history of fall Acute renal failure superimposed on chronic kidney disease, unspecified CKD stage, unspecified acute renal failure type Hyperkalemia Hyperpotassemia Acute UTI Urinary tract infection, site not specified H/O: CVA (cerebrovascular accident) Metabolic encephalopathy Neck pain Cervicalgia PAD (peripheral artery disease) ([facility]) Unspecified peripheral vascular disease PVD (peripheral vascular disease) ([facility]) Unspecified peripheral vascular disease Type 2 diabetes mellitus with stage 3b chronic kidney disease, with long-term current use of insulin ([facility]) Essential hypertension Unspecified essential hypertension ELBA (acute kidney injury) ([facility]) Closed displaced intertrochanteric fracture of right femur with routine healing, subsequent encounter ELBA (acute kidney injury) ([facility]) Urinary tract infection associated with indwelling urethral catheter ([facility]) Urinary retention Unspecified retention of urine COPD exacerbation ([facility])- Primary Obstructive chronic bronchitis with exacerbation Acute exacerbation of chronic obstructive pulmonary disease (COPD) ([facility]) Obstructive chronic bronchitis with exacerbation Chronic kidney disease, unspecified CKD stage Fall Unspecified fall Rib pain on left side Acute hypoxemic respiratory failure ([facility]) Stage 3b chronic kidney disease ([facility]) Type 2 diabetes mellitus with stage 3b chronic kidney disease, with long-term current use of insulin ([facility]) PVD (peripheral vascular disease) ([facility]) Unspecified peripheral vascular disease Neurogenic claudication Spinal stenosis of lumbar region Dyslipidemia Other and unspecified hyperlipidemia Anemia due to stage 3a chronic kidney disease ([facility]) Essential hypertension Unspecified essential hypertension Essential tremor Chest pain, unspecified type- Primary History of CVA (cerebrovascular accident) Transient ischemic attack (TIA), and cerebral infarction without residual deficits Essential hypertension Unspecified essential hypertension PVD (peripheral vascular disease) ([facility]) Unspecified peripheral vascular disease Onychodystrophy- Primary Other specified disease of nail Onychomycosis Dermatophytosis of nail PVD (peripheral vascular disease) ([facility]) Unspecified peripheral vascular disease Tobacco use Diabetic foot ([facility]) Type II or unspecified type diabetes mellitus with other specified manifestations, not stated as uncontrolled Xerosis of skin documented in this encounter [facility] note* Diagnosis Bilateral carotid artery stenosis- Primary Occlusion and stenosis of carotid artery without mention of cerebral infarction PAD (peripheral artery disease) ([facility]) Unspecified peripheral vascular disease History of carotid endarterectomy Other postprocedural status Dyslipidemia Other and unspecified hyperlipidemia Claudication of lower extremity ([facility]) Neurogenic claudication- Primary Spinal stenosis of lumbar region PAD (peripheral artery disease) ([facility]) Unspecified peripheral vascular disease Claudication of lower extremity ([facility]) Bilateral carotid artery stenosis Occlusion and stenosis of carotid artery without mention of cerebral infarction History of carotid endarterectomy Other postprocedural status Occlusion and stenosis of right carotid artery Dyslipidemia Other and unspecified hyperlipidemia Fall, initial encounter- Primary Alcoholic intoxication with complication ([facility]) EtOH dependence ([facility]) Hyperkalemia Hyperpotassemia Acute renal failure superimposed on stage 4 chronic kidney disease, unspecified acute renal failure type ([facility]) Acute UTI Urinary tract infection, site not specified Closed displaced intertrochanteric fracture of right femur with routine healing, subsequent encounter Type 2 diabetes mellitus with stage 3b chronic kidney disease, with long-term current use of insulin ([facility]) Bilateral hip pain Pain in joint, pelvic region and thigh PVD (peripheral vascular disease) ([facility]) Unspecified peripheral vascular disease PAD (peripheral artery disease) ([facility]) Unspecified peripheral vascular disease Chronic obstructive pulmonary disease, unspecified COPD type ([facility]) Alcohol dependence with unspecified alcohol-induced disorder ([facility]) History of cerebrovascular accident Transient ischemic attack (TIA), and cerebral infarction without residual deficits History of fall Personal history of fall Acute renal failure superimposed on chronic kidney disease, unspecified CKD stage, unspecified acute renal failure type Hyperkalemia Hyperpotassemia Acute UTI Urinary tract infection, site not specified H/O: CVA (cerebrovascular accident) Metabolic encephalopathy Neck pain Cervicalgia PAD (peripheral artery disease) ([facility]) Unspecified peripheral vascular disease PVD (peripheral vascular disease) ([facility]) Unspecified peripheral vascular disease Type 2 diabetes mellitus with stage 3b chronic kidney disease, with long-term current use of insulin ([facility]) Essential hypertension Unspecified essential hypertension ELBA (acute kidney injury) ([facility]) Closed displaced intertrochanteric fracture of right femur with routine healing, subsequent encounter ELBA (acute kidney injury) ([facility]) Urinary tract infection associated with indwelling urethral catheter ([facility]) Urinary retention Unspecified retention of urine COPD exacerbation ([facility])- Primary Obstructive chronic bronchitis with exacerbation Acute exacerbation of chronic obstructive pulmonary disease (COPD) ([facility]) Obstructive chronic bronchitis with exacerbation Chronic kidney disease, unspecified CKD stage Fall Unspecified fall Rib pain on left side Acute hypoxemic respiratory failure ([facility]) Stage 3b chronic kidney disease ([facility]) Type 2 diabetes mellitus with stage 3b chronic kidney disease, with long-term current use of insulin ([facility]) PVD (peripheral vascular disease) ([facility]) Unspecified peripheral vascular disease Neurogenic claudication Spinal stenosis of lumbar region Dyslipidemia Other and unspecified hyperlipidemia Anemia due to stage 3a chronic kidney disease ([facility]) Essential hypertension Unspecified essential hypertension Essential tremor Chest pain, unspecified type- Primary History of CVA (cerebrovascular accident) Transient ischemic attack (TIA), and cerebral infarction without residual deficits Essential hypertension Unspecified essential hypertension PVD (peripheral vascular disease) ([facility]) Unspecified peripheral vascular disease History of carotid endarterectomy- Primary Other postprocedural status Stenosis of left carotid artery Occlusion and stenosis of carotid artery without mention of cerebral infarction Neurogenic claudication Spinal stenosis of lumbar region PAD (peripheral artery disease) ([facility]) Unspecified peripheral vascular disease Type 2 diabetes mellitus with stage 3b chronic kidney disease, with long-term current use of insulin ([facility]) [facility] Diagnosis Bilateral carotid artery stenosis- Primary Occlusion and stenosis of carotid artery without mention of cerebral infarction PAD (peripheral artery disease) ([facility]) Unspecified peripheral vascular disease History of carotid endarterectomy Other postprocedural status Dyslipidemia Other and unspecified hyperlipidemia Claudication of lower extremity ([facility]) Neurogenic claudication- Primary Spinal stenosis of lumbar region PAD (peripheral artery disease) ([facility]) Unspecified peripheral vascular disease Claudication of lower extremity ([facility]) Bilateral carotid artery stenosis Occlusion and stenosis of carotid artery without mention of cerebral infarction History of carotid endarterectomy Other postprocedural status Occlusion and stenosis of right carotid artery Dyslipidemia Other and unspecified hyperlipidemia Fall, initial encounter- Primary Alcoholic intoxication with complication ([facility]) EtOH dependence ([facility]) Hyperkalemia Hyperpotassemia Acute renal failure superimposed on stage 4 chronic kidney disease, unspecified acute renal failure type ([facility]) Acute UTI Urinary tract infection, site not specified Closed displaced intertrochanteric fracture of right femur with routine healing, subsequent encounter Type 2 diabetes mellitus with stage 3b chronic kidney disease, with long-term current use of insulin ([facility]) Bilateral hip pain Pain in joint, pelvic region and thigh PVD (peripheral vascular disease) ([facility]) Unspecified peripheral vascular disease PAD (peripheral artery disease) ([facility]) Unspecified peripheral vascular disease Chronic obstructive pulmonary disease, unspecified COPD type ([facility]) Alcohol dependence with unspecified alcohol-induced disorder ([facility]) History of cerebrovascular accident Transient ischemic attack [...] peripheral vascular disease PVD (peripheral vascular disease) (HCC) Unspecified peripheral vascular disease Type 2 diabetes mellitus with stage 3b chronic kidney disease, with long-term current use of insulin (HCC) Essential hypertension Unspecified essential hypertension ELBA (acute kidney injury) (HCC) Closed displaced intertrochanteric fracture of right femur [...] of insulin ([facility]CC) [facility] Diagnosis Rib pain- Primary Unspecified chest [...] Muscle weakness (generalized) Recurrent falls Centrilobular emphysema ([facility]) Screening for prostate cancer Special screening for malignant neoplasm of prostate Hypertriglyceridemia Pure hyperglyceridemia Anemia, unspecified type Non-pressure chronic ulcer of other part of right foot with fat layer exposed Vascular myelopathies Depression, major, in remission ([facility]) Thoracic aortic aneurysm without rupture, unspecified part ([facility]) Stage 3b chronic kidney disease ([facility]) Stable angina pectoris ([facility]) Calculus of gallbladder without cholecystitis without obstruction Routine general medical examination at health care facility- Primary Routine general medical examination at a health care facility Superficial gastritis without hemorrhage, unspecified chronicity Weakness of upper extremity Weakness of both lower extremities Recurrent falls Neck pain Cervicalgia H/O: CVA (cerebrovascular accident) Essential tremor Neurogenic claudication Spinal stenosis of lumbar region Stable angina pectoris ([facility]) Hypertension associated with type 2 diabetes mellitus ([facility]) Encounter for vaccination 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[facility]) Hypotensive episode Thrombocytopenia ([facility])- Primary Unspecified thrombocytopenia Chronic obstructive pulmonary disease, unspecified Megaloblastic anemia Unspecified deficiency anemia Folate deficiency Other B-complex deficiencies Fatigue, unspecified type CRF (chronic renal failure), stage 3 (moderate) ([facility]) Type 2 diabetes mellitus with hyperglycemia, with long-term current use of insulin documented in this encounter [facility] Work Phone: Evaluation note* Diagnosis Bilateral carotid artery stenosis- Primary Occlusion and stenosis of carotid artery without mention of cerebral infarction PAD (peripheral artery disease) ([facility]) Unspecified peripheral vascular disease History of carotid endarterectomy Other postprocedural status Dyslipidemia Other and unspecified hyperlipidemia Claudication of lower extremity (HCC) Neurogenic claudication- Primary Spinal stenosis of lumbar region PAD (peripheral artery disease) ([facility]) Unspecified peripheral vascular disease Claudication of lower extremity ([facility]) Bilateral carotid artery stenosis Occlusion and stenosis of carotid artery without mention of cerebral infarction History of carotid endarterectomy Other postprocedural status Occlusion and stenosis of right carotid artery Dyslipidemia Other and unspecified hyperlipidemia Fall, initial encounter- Primary Alcoholic intoxication with complication ([facility]) EtOH dependence ([facility]) Hyperkalemia Hyperpotassemia Acute renal failure superimposed on stage 4 chronic kidney disease, unspecified acute renal failure type (HCC) Acute UTI Urinary tract infection, site not specified Closed displaced intertrochanteric fracture of right femur with routine healing, subsequent encounter Type 2 diabetes mellitus with stage 3b chronic kidney disease, with long-term current use of insulin ([facility]) Bilateral hip pain Pain in joint, pelvic region and thigh PVD (peripheral vascular disease) Unspecified peripheral vascular disease PAD (peripheral artery disease) ([facility]) Unspecified peripheral vascular disease Chronic obstructive pulmonary disease, unspecified COPD type ([facility]) Alcohol dependence with unspecified alcohol-induced disorder ([facility]) History of cerebrovascular accident Transient ischemic attack (TIA), and cerebral infarction without residual deficits History of fall Personal history of fall Acute renal failure superimposed on chronic kidney disease, unspecified CKD stage, unspecified acute renal failure type Hyperkalemia Hyperpotassemia Acute UTI Urinary tract infection, site not specified H/O: CVA (cerebrovascular accident) Metabolic encephalopathy Neck pain Cervicalgia PAD (peripheral artery disease) ([facility]) Unspecified peripheral vascular disease PVD (peripheral vascular disease) Unspecified peripheral vascular disease Type 2 diabetes mellitus with stage 3b chronic kidney disease, with long-term current use of insulin ([facility]) Essential hypertension Unspecified essential hypertension ELBA (acute kidney injury) Closed displaced intertrochanteric fracture of right femur with routine healing, subsequent encounter ELBA (acute kidney injury) Urinary tract infection associated with indwelling urethral catheter ([facility]) Urinary retention Unspecified retention of urine COPD exacerbation ([facility])- Primary Obstructive chronic bronchitis with exacerbation Acute exacerbation of chronic obstructive pulmonary disease (COPD) ([facility]) Obstructive chronic bronchitis with exacerbation Chronic kidney disease, unspecified CKD stage Fall Unspecified fall Rib pain on left side Acute hypoxemic respiratory failure ([facility]) Stage 3b chronic kidney disease ([facility]) Type 2 diabetes mellitus with stage 3b chronic kidney disease, with long-term current use of insulin ([facility]) PVD (peripheral vascular disease) Unspecified peripheral vascular disease Neurogenic claudication Spinal stenosis of lumbar region Dyslipidemia Other and unspecified hyperlipidemia Anemia due to stage 3a chronic kidney disease ([facility]) Essential hypertension Unspecified essential hypertension Essential tremor Chest pain, unspecified type- Primary History of CVA (cerebrovascular accident) Transient ischemic attack (TIA), and cerebral infarction without residual deficits Essential hypertension Unspecified essential hypertension PVD (peripheral vascular disease) Unspecified peripheral vascular disease Type 2 diabetes mellitus with stage 3b chronic kidney disease, with long-term current use of insulin ([facility])- Primary [facility] [...] prostate Vascular myelopathies Depression, major, in remission ([facility]) Chronic stable angina ([facility]) Chronic shortness of breath Hepatic steatosis Other [...] exposed Vascular myelopathies Depression, major, in remission ([facility]) Thoracic aortic aneurysm without rupture, unspecified part ([facility]) Stage 3b chronic kidney disease ([facility]) Stable angina pectoris ([facility]) Calculus of gallbladder without cholecystitis without obstruction Routine general medical examination at health care facility- Primary Routine general medical examination at a health care facility Superficial gastritis without hemorrhage, unspecified chronicity Weakness of upper extremity Weakness of both lower extremities Recurrent falls Neck pain Cervicalgia H/O: CVA (cerebrovascular accident) Essential tremor Neurogenic claudication Spinal stenosis of lumbar region Stable angina pectoris ([facility]) Hypertension associated with type 2 diabetes mellitus ([facility]) Encounter for vaccination 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[facility]) Hypotensive episode Routine general medical examination at health care facility- Primary Routine general medical examination at a health care facility Chronic obstructive pulmonary disease, unspecified COPD type ([facility]) Essential tremor Type 2 diabetes mellitus with hyperglycemia, with long-term current use of insulin Hypertension associated with type 2 diabetes mellitus ([facility]) Mixed hyperlipidemia Thrombocytopenia ([facility]) Unspecified thrombocytopenia Folate deficiency Other B-complex deficiencies CRF (chronic renal failure), stage 3 (moderate) ([facility]) Chronic fatigue Other malaise and fatigue Anemia, unspecified type Weakness of both arms Other musculoskeletal symptoms referable to limbs Weakness of both legs Muscle weakness (generalized) Smoker Tobacco use disorder documented in this encounter [facility] Work Phone: Evaluation note* Diagnosis Bilateral carotid artery stenosis- Primary Occlusion and stenosis of carotid artery without mention of cerebral infarction PAD (peripheral artery disease) ([facility]) Unspecified peripheral vascular disease History of carotid [...] initial encounter- Primary Alcoholic intoxication with complication ([facility]) EtOH dependence ([facility]) Hyperkalemia Hyperpotassemia Acute renal failure superimposed on stage 4 chronic kidney disease, unspecified acute renal failure type (HCC) Acute UTI Urinary tract infection, site not specified Closed displaced intertrochanteric fracture of right femur with routine healing, subsequent encounter Type 2 diabetes mellitus with stage 3b chronic kidney disease, with long-term current use of insulin ([facility]) Bilateral hip pain Pain in joint, pelvic region and thigh PVD (peripheral vascular disease) Unspecified peripheral vascular disease PAD (peripheral artery disease) ([facility]) Unspecified peripheral vascular disease Chronic obstructive pulmonary disease, unspecified COPD type ([facility]) Alcohol dependence with unspecified alcohol-induced disorder ([facility]) History of cerebrovascular accident Transient ischemic attack (TIA), and cerebral infarction without residual deficits History of fall Personal history of fall Acute renal failure superimposed on chronic kidney disease, unspecified CKD stage, unspecified acute renal failure type Hyperkalemia Hyperpotassemia Acute UTI Urinary tract infection, site not specified H/O: CVA (cerebrovascular accident) Metabolic encephalopathy Neck pain Cervicalgia PAD (peripheral artery disease) ([facility]) Unspecified peripheral vascular disease PVD (peripheral vascular [...] Thoracic aortic aneurysm without rupture, unspecified part ([facility]) Stage 3b chronic kidney disease ([facility]) Stable angina pectoris ([facility]) Calculus of gallbladder without cholecystitis without obstruction Routine general medical examination at health care facility- Primary Routine general medical examination at a health care facility Chronic obstructive pulmonary disease, unspecified COPD type ([facility]) Essential tremor Type 2 diabetes mellitus with hyperglycemia, with long-term current use of insulin Hypertension associated with type 2 diabetes mellitus ([facility]) Mixed hyperlipidemia Thrombocytopenia ([facility]) Unspecified thrombocytopenia Folate deficiency Other B-complex deficiencies [...] vaccination and inoculation against influenza Centrilobular emphysema ([facility]) documented in this encounter [facility] Work Phone: Evaluation note* Diagnosis Bilateral carotid artery stenosis- Primary Occlusion and stenosis of carotid artery without mention of cerebral infarction PAD (peripheral artery disease) ([facility]) Unspecified peripheral vascular disease History of carotid [...] disease, with long-term current use of insulin ([facility]) Bilateral hip pain Pain in joint, pelvic region and thigh PVD (peripheral vascular disease) Unspecified peripheral vascular disease PAD (peripheral artery disease) ([facility]) Unspecified peripheral vascular disease Chronic obstructive pulmonary disease, unspecified COPD type ([facility]) Alcohol dependence with unspecified alcohol-induced disorder ([facility]) History of cerebrovascular accident Transient ischemic attack (TIA), and cerebral infarction without residual deficits History of fall Personal history of fall Acute renal failure superimposed on chronic kidney disease, unspecified CKD stage, unspecified acute renal failure type Hyperkalemia Hyperpotassemia Acute UTI Urinary tract infection, site not specified H/O: CVA (cerebrovascular accident) Metabolic encephalopathy Neck pain Cervicalgia PAD (peripheral artery disease) ([facility]) Unspecified peripheral vascular disease PVD (peripheral vascular disease) Unspecified peripheral vascular disease Type 2 diabetes mellitus with stage 3b chronic kidney disease, with long-term current use of insulin ([facility]) Essential hypertension Unspecified essential hypertension ELBA (acute kidney injury) Closed displaced intertrochanteric fracture of right femur with routine healing, subsequent encounter ELBA (acute kidney injury) Urinary tract infection associated with indwelling urethral catheter ([facility]) Urinary retention Unspecified retention of urine COPD exacerbation ([facility])- Primary Obstructive chronic bronchitis with exacerbation Acute exacerbation of chronic obstructive pulmonary disease (COPD) ([facility]) Obstructive chronic bronchitis with exacerbation Chronic kidney disease, unspecified CKD stage Fall Unspecified fall Rib pain on left side Acute hypoxemic respiratory failure ([facility]) Stage 3b chronic kidney disease ([facility]) Type 2 diabetes mellitus with stage 3b chronic kidney disease, with long-term current use of insulin ([facility]) PVD (peripheral vascular disease) Unspecified peripheral vascular disease Neurogenic claudication Spinal stenosis of lumbar region Dyslipidemia Other and unspecified hyperlipidemia Anemia due to stage 3a chronic kidney disease ([facility]) Essential hypertension Unspecified essential hypertension Essential tremor Chest pain, unspecified type- Primary History of CVA (cerebrovascular accident) Transient ischemic attack (TIA), and cerebral infarction without residual deficits Essential hypertension Unspecified essential hypertension PVD (peripheral vascular disease) Unspecified peripheral vascular disease Onychodystrophy- Primary Other specified disease of nail Onychomycosis Dermatophytosis of nail PVD (peripheral vascular disease) Unspecified peripheral vascular disease Diabetic foot ([facility]) Type II or unspecified type diabetes mellitus with other specified manifestations, not stated as uncontrolled Xerosis of skin [facility]No assessment information availableW[facility] Work Phone: Evaluation note* Diagnosis Onset Date Resolution Status Admit Date Closed right ankle fracture acute April 17, 2025 9:12am [facility] Work Phone: History of Present illness [...] of motion/joint mobility, strength and transfers. [facility] Work Phone: History of Present illness NarrativeSBA with ambulation into clinic. Weakness noted with LE strengthening. Continued STM to decrease muscular tightness. SOB following sci-fit stepper. Fair quad eccentric control with STS transfers. V/assistant director of nursing correct form with standing ther ex. [facility] [address] [place] Work Phone: History of Present illness NarrativeCGA with added neuro re-ed. Breaks and quick fatigue noted with Ambulation with cane in clinic. Continued palpable tenderness along R glute and hip flexor. Reviewed HEP. [facility] [address] [place] Work Phone: History of Present illness NarrativeWeakness noted with quad and hip strengthening. Breaks required with standing ther ex d/t fatigue and SOB. continued tightness R knee ext. Ambulated with cane through out Tx. C/o fatigue at end of Tx. Rehab [address] Work Phone: History of Present illness NarrativePt. arrived 12 mins late to appt. Held neuro re-ed this visit. Fair quad eccentric control with step ups and STS. Quick fatigue with standing ther ex. LOB with tandem stance. Palpable tenderness R glute and hip flexor.[facility] [place] [address] [place] Work Phone: History of Present illness NarrativeFair tolerance to ther ex. Weakness noted with hip strengthening. Continued lacking full R knee extension AROM. Palpable tenderness along R glute and hip flexor. Increased fatigue and SOB with all ofther ex compared to previous visits. Reviewed HEP.[address] Work Phone: History of Present illness NarrativeLAB F/U.. CLEAR WATERY EYES WITH ITCHY EYES X SEVERAL WEEKS , NO CHANGE IN VISION. , WORSENING CHRONIC TREMOR . HASN'T BEEN TAKING THE PRIMIDONE ( FORGET TO TAKE IT) . HAS F/U WITH ENDO FOR DM2 .-[facility] Work Phone: History of Present illness Narrative* Fair tolerance to ther ex. Weakness noted with step ups requiring B UE assist. SOB and fatigue noted with standing ther ex. Continued Difficulty with ambulation sing cane with CGA. * Lorena Ochoa, PT, DPT, Cert DN updated goals this date with pt making good progress towards all stated POC goals. [facility] Work Phone: History of Present illness NarrativePt continues to have tightness with knee ext. Fair quad control wth step ups using UE assist. SBA with ambulation in clinic with cane. Improved gait pattern with cane this visit. No time for neuro re-ed this visit. Increased SOB this visit.[facility] [address] Work Phone: History of Present illness NarrativeBreaks required with all standing ther ex. SOB following step ups. LOB with tandem stance. Continued tightness with L knee ext. Improved gait pattern with cane. Reviewed HEP.[facility] [address] Work Phone: History of Present illness Narrative* Patient has made significant improvement in R hip AROM and strength, and has progressed towards more independent mobility. He is now using a cane for most household mobility, is able to get up and down independently without 's supervision. He continues to need zone supervisor firearms with showering and is unable to ambulate [...] complete today's treatment with some difficulty. [facility] [address] [place] Work Phone: History of Present illness NarrativeLAB F/U. PT QUIT ETOH AFTER HOSPITAL AND NH DISCHARGE, BUT STARTED TO DRINK AGAIN . ITCHY EYES , OLOPATADINE EYE DROP HELPED WITH CLEAR DISCHARGE FROM EYES , BUT NOT MUCH FOR ITCHY EYES . 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 HAS ROUTINE F/U WITH ENDO FOR DM2. HAD NO ANGINASINCE LAST VISIT WITH H/O ANGINA PECTORIS. PVD HAS BEEN STABLE.[facility] Work Phone: Hiseadg of Present illness Narrative* The patient is [...] factors: none. * LAB F/U (DONE BY 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 ) . MEDICARE WELLNESS EXAM.. CRF , [...] factors: none. * LAB F/U (DONE BY 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 ) . MEDICARE WELLNESS EXAM.. CRF , CHRONIC ANGINA , DIABETIC NEUROPATHY NEUROPATHY ,HTN AND DM2 HAVE BEEN STABLE.. STILL DRINKS ETOH ,BUT LESS FREQUENT.(PER PT). [facility] Work Phone: History of Present illness [...] HAD ONE DRINK AFTER SEVERAL FEW MONTHS) .[facility] Work Phone: History of Present illness NarrativePatient identified by name and date of . Patient required rest breaks between sets and exercises due to fatigue. He ambulated into clinic with use of S/C with slow nilda. He verbalized good understanding of HEP with review and additional handouts. [facility] Work Phone: History of Present illness [...] decrease with reported increase in Sx. [facility] Work Phone: History of Present illness NarrativePatient identified by name and date of . [facility] Work Phone: History of Present illness NarrativePatient identified by name and date of . Per patient request treatment time reduced this date due to conflict in schedule. Patient was able to progress with standing exercises this date with addition of reps and step ups. He required seated rest breaks due to LE fatigue. [facility] Work Phone: History of Present illness [...] of motion/joint mobility, strength and transfers. [facility] Work Phone: Hospital Discharge instructions Additional Instructions Follow-up with orthopedics, you can take the boot off whenever you are sitting/lying down, use it for walking. Ice your ankle and knee, take Tylenol as needed for pain.[facility] Work Phone: Instructions* Name Dates Details Instructions not documented -[facility] Work Phone: Instructions* Attachments The following attachments cannot be sent through Care Everywhere. * Diabetes: Foot Care (Croatian) documented in this encounterOhioHealthReason for referral (narrative)No reason for referral information availableWTrinity [facility] Work Phone: Reason for visit Narrative* Initial Evaluation . muscle weakness of lower extremity M62.81, s/p R hip fracture Z87.81. * Referred by: Phyllis Mae MD [facility] Work Phone: Reason for visit NarrativeInitial Evaluation . BLE weakness and history of CVA. [facility] Work Phone: Instructions Name Dates Details Instructions not documented Name Dates Details Instructions not documented Name Dates Details Instructions not documented Name Dates Details Instructions not documented Assessments Diagnosis Anemia, unspecified type - P rimary Monoclonal gammopathy Monoclonal paraproteinemia Diagnosis Bilateral carotid artery rick nosis - Primary Occlusion and stenosis of carotid artery without mention of cerebral infarction PAD (peripheral artery disea se) ([facility]) Unspecified peripheral vascular disease History of carotid endartere ctomy Other postprocedural status Dyslipidemia Other and unspecified hyperlipidemia Claudication of lower extrem ity ([facility]) Diagnosis Abnormal stress test Other nonspecific abnormal cardiovascular system function study Diagnosis Anemia, unspecified type - P rimary Monoclonal gammopathy Monoclonal paraproteinemia Abdominal pain, unspecified abdominal location Diagnosis Anemia, unspecified type - P rimary Monoclonal gammopathy Monoclonal paraproteinemia Tobacco use disorder Diagnosis Neurogenic claudication Spinal stenosis of lumbar region PAD (peripheral artery disea se) ([facility]) Unspecified peripheral vascular disease Claudication of lower extrem ity ([facility]) Diagnosis Anemia, unspecified type - P rimary [...] Chronic obstructive pulmonary disease, unspecified COPD type ([facility])- Primary Cigarette Smoker Tobacco use disorder Screening for malignant neoplasm of respiratory organ Special screening for malignant neoplasm of the respiratory organs Diagnosis Facial numbness- Primary Disturbance of skin sensation Statin intolerance Abnormal stress test Other nonspecific abnormal cardiovascular system function study Diagnosis Pneumonia of left lower lobe due to infectious organism ([facility])- Primary Diagnosis Anemia, unspecified type- Primary Monoclonal gammopathy Monoclonal paraproteinemia Fatigue, unspecified type SOB (shortness of breath) Shortness of breath Diagnosis COPD exacerbation ([facility])- Primary Obstructive chronic bronchitis with exacerbation Diagnosis Abnormal stress test Other nonspecific abnormal cardiovascular system function study Diagnosis Stenosis of left carotid artery Occlusion and stenosis of carotid artery without mention of cerebral infarction History of right-sided carotid endarterectomy Diagnosis Stenosis of left iliac artery (HCC) Atherosclerosis of [place] arteries of the extremities, unspecified Diagnosis Inadequately controlled diabetes mellitus (HCC) Type II or unspecified type diabetes mellitus without mention of complication, not stated as uncontrolled IDDM (insulin dependent diabetes mellitus) (HCC) Dyslipidemia Other and unspecified hyperlipidemia Diagnosis Fall, initial encounter Alcoholic intoxication with complication (HCC) Fall down stairs Accidental fall on or from other stairs or steps EtOH dependence ([facility]) Diagnosis Chest pain, unspecified type PVD (peripheral vascular disease) (HCC) Unspecified peripheral vascular disease Diagnosis Screening for malignant neoplasm of respiratory organ Special screening for malignant neoplasm of the respiratory organs Cigarette Smoker Tobacco use disorder Diagnosis Closed fracture of multiple ribs of right side, initial encounter Closed fracture of multiple ribs of left side, initial encounter Closed extensive facial fractures, initial encounter (HCC) Closed fracture of multiple ribs of both sides, initial encounter Closed fracture of left orbital floor, initial encounter ([facility]) Diagnosis Nipple pain Other sign and symptom in breast Diagnosis Abnormal stress test- Primary Other nonspecific abnormal cardiovascular system function study PAD (peripheral artery disease) (HCC) Unspecified peripheral vascular disease PVD (peripheral vascular disease) (HCC) Unspecified peripheral vascular disease Diagnosis Inadequately controlled diabetes mellitus (HCC)- Primary Type II or unspecified type diabetes mellitus without mention of complication, not stated as uncontrolled Dyslipidemia Other and unspecified hyperlipidemia Diagnosis Left carotid artery stenosis Stenosis of left iliac artery (HCC) Atherosclerosis of [place] arteries of the extremities, unspecified History of carotid endarterectomy Other postprocedural status Neurogenic claudication Spinal stenosis of lumbar region Diagnosis Tobacco use disorder Loss of weight Diagnosis Stenosis of left carotid artery- Primary Occlusion and stenosis of carotid artery without mention of cerebral infarction History of right-sided carotid endarterectomy Stenosis of left iliac artery (HCC) Atherosclerosis of [place] arteries of the extremities, unspecified Neurogenic claudication Spinal stenosis of lumbar region Diagnosis Type 2 diabetes mellitus without complications ([facility]) Diagnosis Anemia, unspecified type- Primary Monoclonal gammopathy [...] sister post PEA/ hypoxic encephalopathy both at [facility]. HEMATOLOGIC HX Has been a [...] h/o remote trauma) 12/18/2017 endoscopy performed at [facility] by indicates no abnormality, colonoscopy demonstrates the prostate to be 2+ non nodular, sessile 3 mm polyp within the proximal ascending colon. 12/20/2017 H&H is 12.1/35, MCV is 102.4, serum protein electrophoresis demonstrates a normal pattern, serum kappa free light chain is elevated however ratio is normal, serum immunofixation does not demonstrate any evidence of paraprotein. ALLERGIES Allergies Allergen Reactions [facility] [...] PVD (peripheral vascular disease) (HCC) Rhabdomyolysis 2009 Stroke (HCC) 2010 R side Past Surgical History: Procedure Laterality Date carotid angio 2010 HAND SURGERY Right 2009 [place] THROMBOENDARTECTMY NECK,NECK INCIS Right 2010 SHOULDER OPEN [...] Years of education: N/A Occupational History Disability [employer] Social History Main Topics Smoking status: Current [...] Stevo Germain is a 68 y.o. male [id number] smoker currently smoking half pack a day [...] organ F17.210 Cigarette Smoker COMPARISON: 01/11/2018 at [facility] in [place] and 09/17/2010 from [place]. FINDINGS: There are a couplet of perifissural [...] PM EDT [facility] [address] (11) [facility] [address] [facility] [id number] Subjective: Stevo Germain is a [...] vascular hospitalized in January of 2017 at [facility] in [place]. He had nausea and some abdominal pain, warm feeling from his head down through his body, perhaps some chest discomfort. Difficult historian. Troponins were negative. Underwent a nuclear stress test in [place] on February 22, 2017. Again noted was a medium size mild intensity partially reversible defect involving the apical mid and basalinferior wall thought probably due to a secondary diaphragmatic attenuation artifact. Ejection fraction was intact 72%. Some septal hypokinesis was noted. This is similar to the nuclear stress test he had back in 2014 at [facility]. History of CVA, ambulates slowly. History [...] try to get him on a long-acting beta-dnany instead ofthe short acting propranolol 20 mg [...] Peptic ulcer disease PVD (peripheral vascular disease) ([facility]) Rhabdomyolysis 2010 Stroke (HCC) 2010 R side Past Surgical History: Procedure Laterality Date carotid angio 2010 HAND SURGERY Right 2009 [place] THROMBOENDARTECTMY NECK,NECK INCIS Right 2009 SHOULDER OPEN [...] h/o remote trauma) 12/18/2017 endoscopy performed at [facility] by indicates no abnormality, colonoscopy demonstrates the [...] Peptic ulcer disease PVD (peripheral vascular disease) ([facility]) Rhabdomyolysis 2010 Stroke (HCC) 2010 R side Past Surgical History: Procedure Laterality Date carotid angio 2010 HAND SURGERY Right 2009 [place] THROMBOENDARTECTMY NECK,NECK INCIS Right 2009 SHOULDER OPEN [...] on file Occupational History Occupation: Disability Comment: [employer] Social Needs Financial resource strain: Not on [...] file Gets together: Not on file Attends alevism service: Not on file Active member of [...] PM EST [facility] [address] ([address]) [facility] [address] [facility] [id number] Subjective: Stevo Germain is a 69 y.o. [...] vascular. hospitalized in January of 2017 at [facility] in [place]. He had nausea and some abdominal pain, warm feeling from his head down through his body, perhaps some chest discomfort. Difficult historian. Troponins were negative. Underwent a nuclear stress test in [place] on February 22, 2017. Again noted was a medium size mild intensity partially reversible defect involving the apical mid and basalinferior wall thought probably due to a secondary diaphragmatic attenuation artifact. Ejection fraction was intact 72%. Some septal hypokinesis was noted. This is similar to the nuclear stress test he had back in 2015 at [facility]. History of CVA, ambulates slowly. History [...] pains. Said he recently stated a cecilia Vincent had to walk up 2 flights of stairs on a regular basis. Denies significant shortness of breath with that. Does have some discomfort in his legs calves bilaterally polyneuropathy no clear-cut claudication symptoms will be following up with vascular near future cardiac exam unremarkable. Blood pressure is elevated /93 pulse 78 and regular O2 sat 96%. [...] CKD (chronic kidney disease) Stage III Claudication ([facility]) COPD (chronic obstructive pulmonary disease) ([facility]) Diabetes mellitus ([facility]) Essential tremor History of pneumonia Hyperlipidemia Hypertension Leg cramps MGUS (monoclonal gammopathy of unknown significance) Peptic ulcer disease PVD (peripheral vascular disease) ([facility]) Rhabdomyolysis 2010 Stroke ([facility]) 2010 R side Past Surgical History: Procedure Laterality Date carotid angio 2010 HAND SURGERY Right 2009 [place] THROMBOENDARTECTMY NECK,NECK INCIS Right 2010 SHOULDER OPEN [...] within last 12 months: yes Date: 11/18 Federal Mediation Commissioner/Silviculture Forester: Dr. Lepe Other Ophthalmologic Conditions: S/P Right [...] foot exam: 12/27/19 Follows with Podiatry: No Skewer Up: History of foot ulceration: No History of [...] Call if BG consistently <70 or >250. [phone] Patient has been checking blood glucoses 2 [...] Clair Joaquin - 04/14/2020 1:10 PM EDT Account Clerk Care Note: Account Clerk responded to Level 2 Trauma. Medical staff attending to patient upon arrival. No family present. Pastoral Care Team will remain available to support patient and family PRN. Chaplain Clair Joaquin MDiv [facility] Pastoral Care Department [phone] office [phone] pager [phone] on-call pager (after 5pm and weekends) 04/14/20 1310 Clinical Encounter Type Visit Type Crisis Crisis Visit Trauma 2;Stroke Alert Visited With Patient not available Visited By Other (comment) () Visit Length (minutes) 5 Referral From Trauma documented in this encounter* [place] MD - 11/23/2020 1:43 PM EST Telephone Visit Via Phone Call [facility] [address] ([address]) [facility] [address] [facility] [phone] Telephone Visit [facility] 11/23/2020 Aqu[place] Bay MD Provider Location: [place] Patient Location Windows Server Administrator: None Patient Location: Patient's Home Patient: Stevo [...] there are inherent diagnostic limitations compared to [id number] evaluations. We elected toproceed with the telephone [...] kidney disease), COPD (chronic obstructive pulmonary disease) ([facility]), Diabetes mellitus (HCC), Essential tremor, History of pneumonia, Hyperlipidemia, Hypertension, Leg cramps, Leg heaviness, MGUS (monoclonal gammopathy of unknown significance), Peptic ulcer disease, PVD (peripheral vascular disease) ([facility]), Rhabdomyolysis (2009), and Stroke ([facility]) (2009). He has a past surgical history that includes Hand surgery (Right, 2008); carotid angio (2009); pr thromboendartectmy neck,neck incis (Right, 2010); and [...] as needed for cough . BLOOD-GLUCOSE METER [facility] Accu-chek Elli plus meter. Use as directed [...] within last 12 months: yes Date: 11/18 Federal Mediation Commissioner/Silviculture Forester: Dr. Lepe Other Ophthalmologic Conditions: S/P Right [...] foot exam: 08/03/20 Follows with Podiatry: No Skewer Up: History of foot ulceration: No History of [...] Call if BG consistently <70 or >250. [phone] Patient has been checking blood glucoses 2 [...] Peptic ulcer disease PVD (peripheral vascular disease) ([facility]) Rhabdomyolysis 2010 Stroke ([facility]) 2010 R side Past Surgical History: Procedure Laterality Date carotid angio 2010 HAND SURGERY Right 2009 [place] THROMBOENDARTECTMY NECK,NECK INCIS Right 2010 SHOULDER OPEN [...] He presents at the request of his fitter hand (Dr. Bay). He had undergone a carotid [...] been seen by Dr. Menjivar in the [place] office, but that is been several months [...] CKD (chronic kidney disease) Stage III Claudication ([facility]) COPD (chronic obstructive pulmonary disease) ([facility]) Diabetes mellitus ([facility]) Essential tremor History of pneumonia Hyperlipidemia Hypertension Leg cramps MGUS (monoclonal gammopathy of unknown significance) Peptic ulcer disease PVD (peripheral vascular disease) ([facility]) Rhabdomyolysis 2010 Stroke ([facility]) 2010 R side Past Surgical History: Procedure Laterality Date carotid angio 2010 HAND SURGERY Right 2009 [place] THROMBOENDARTECTMY NECK,NECK INCIS Right 2009 SHOULDER OPEN [...] AePB Inhale 2 (two) times a day Sherrillryefri. ADVAIR DISKUS 500-50 mcg/dose diskus inhaler INHALE [...] h/o remote trauma) 12/18/2017 endoscopy performed at [facility] by indicates no abnormality, colonoscopy demonstrates the prostate to be 2+ non nodular, sessile 3 mm polyp within the proximal ascending colon. 12/20/2017 H&H is 12.1/35, MCV is 102.4, serum protein electrophoresis demonstrates a normal pattern, serum kappa free light chain is elevated however ratio is normal, serum immunofixation does not demonstrate any evidence of paraprotein. ALLERGIES Allergies Allergen Reactions Chantix [Varenicline] [facility] has a current medication list which includes [...] CKD (chronic kidney disease) Stage III Claudication ([facility]) COPD (chronic obstructive pulmonary disease) ([facility]) Diabetes mellitus ([facility]) Essential tremor History of pneumonia Hyperlipidemia Hypertension Leg cramps MGUS (monoclonal gammopathy of unknown significance) Peptic ulcer disease PVD (peripheral vascular disease) ([facility]) Rhabdomyolysis 2010 Stroke ([facility]) 2010 R side Past Surgical History: Procedure Laterality Date carotid angio 2010 HAND SURGERY Right 2009 [place] THROMBOENDARTECTMY NECK,NECK INCIS Right 2009 SHOULDER OPEN [...] non-medical: None Occupational History Occupation: Disability Comment: [employer] Tobacco Use Smoking status: Current Every Day [...] Further Action Completed: none KRISTI Callahan, JAYDEN Outbound Sales Advisor Primary Care [facility] Care Management documented in this encounter [...] FoundDocuments on File Type Date Recorded Patient Sql Developer Expl anation Advance Directives and Livin g Will 11/13/2018 12:00 AM Documents on File Type Date Recorded Patient Sql Developer Expl anation Advance Directives and Livin g Will 05/27/2019 11:55 AM Documents on File Type Date Recorded Patient Sql Developer Expl anation Advance Directives and Livin g Will 06/05/2019 12:41 PM Documents on File Type Date Recorded Patient Sql Developer Expl anation Advance Directives and Livin g Will 12/04/2019 12:47 PM Documents on File Type Date Recorded Patient Sql Developer Expl anation Advance Directives and Livin g Will 12/04/2019 12:47 PM Documents on File Type Date Recorded Patient Sql Developer Expl anation Advance Directives and Livin g Will 04/14/2020 1:37 PM Documents on File Type Date Recorded Patient Sql Developer Expl anation Advance Directives and Livin g Will 12/04/2019 12:47 PM Advance Directives and Livin g Will 04/14/2020 1:37 PM Documents on File Type Date Recorded Patient Sql Developer Expl anation Advance Directives and Livin g Will 12/04/2019 12:47 PM Advance Directives and Livin g Will 05/25/2020 12:00 AM Documents on File Type Date Recorded Patient Sql Developer Expl anation Advance Directives and Livin g Will 12/04/2019 12:47 PM Advance Directives and Livin g Will 06/10/2020 6:41 PM Documents on File Type Date Recorded Patient Sql Developer Expl anation Advance Directives and Livin g Will 12/04/2019 12:47 PM Advance Directives and Livin g Will 08/31/2020 6:41 PM Documents on File Type Date Recorded Patient Sql Developer Expl anation Advance Directives and Livin g Will 12/04/2019 12:47 PM Advance Directives and Livin g Will 08/31/2020 6:41 PM Documents on File Type Date Recorded Patient Sql Developer Expl anation Advance Directives and Livin g Will 12/04/2019 12:47 PM Advance Directives and Livin g Will 01/11/2021 12:23 PM Documents on File Type Date Recorded Patient Sql Developer Expl anation Advance Directives and Livin g Will 12/04/2019 12:47 PM Advance Directives and Livin g Will 03/08/2021 12:23 PM Latest Code Status on File Code Status Date Activated Date Inactivated Comments Full Code 03/08/2021 5:11 PM 03/12/2021 8:19 PM Documents on File Type Date Recorded Patient Sql Developer Expl anation Advance Directives and Livin g Will 03/08/2021 12:23 PM Advance Directives and Livin g Will 12/04/2019 12:47 PM Documents on File Type Date Recorded Patient Sql Developer Expl anation Advance Directives and Livin g [...] Documents on File Type Date Recorded Patient Sql Developer Expl anation Advance Directives and Livin g [...] Documents on File Type Date Recorded Patient Sql Developer Expl anation Advance Directives and Livin g [...] Do you have a Healthcare Power of Abrasives Sales Representative? Yes April 10, 2025 3:33pm Name of Medical Power of Abrasives Sales Representative DAUGHTER ANIKET April 10, 2025 3:33pm Reason for Referral Status Reason Specialty Diagnoses / Procedures Re ferred By Contact Referred To Contact Closed Cardiology Diagnoses Chest pain, unspecified type Procedures Dobutamine stress echocardiogram Aqu[place] Bay MD [address] [address] Status Reason Specialty Diagnoses / Procedures Referre d By Contact Referred To Contact Closed Cardiology Diagnoses Bilateral carotid artery stenosis Procedures Carotid Duplex Aquiles Bay MD [address] [address] Status Reason Specialty Diagnoses / Procedures Referre d By Contact Referred To Contact Closed Radiology Diagnoses Screening for malignant neoplasm of respiratory organ Cigarette Smoker Procedures CT Lung Cancer Screening Lola Barksdale MD [address] [address] Status Reason Specialty Diagnoses / Procedures Referred By Contact Referred To Contact Pending Review Radiology Diagnoses Cigarette Smoker Screening for malignant neoplasm of respiratory organ Procedures CT Lung Cancer Screening Lola Barksdale MD [address] [address] Status Reason Specialty Diagnoses / Procedures Re ferred By Contact Referred To Contact Closed Cardiology Diagnoses Stenosis of left carotid artery History of right-sided carotid endarterectomy Procedures Carotid Duplex Cameron Munguia III, DO [address] [place] [address] Status Reason Specialty Diagnoses / Procedures Referre d By Contact Referred To Contact Closed Cardiology Diagnoses Stenosis of left iliac artery (HCC) Procedures Segmental Doppler Lower Extremity Arterial W Exercise Cameron Munguia III, DO [address] [place] [address] Status Reason Specialty Diagnoses / Procedures Referre d By Contact Referred To Contact Closed Radiology Diagnoses Chest pain, unspecified type PVD (peripheral vascular disease) (HCC) Procedures NM Myocardial Perfusion Multiple SPECT Aquiles Bay MD [address] [address] Status Reason Specialty Diagnoses / Procedures Referre d By Contact Referred To Contact Closed Radiology Diagnoses Screening for malignant neoplasm of respiratory organ Cigarette Smoker Procedures CT Lung Cancer Screening Lola Barksdale MD [address] [place] [id number] Status Reason Specialty Diagnoses / Procedures Referre d By Contact Referred To Contact Closed Radiology Diagnoses Nipple pain Procedures Mammography Diagnostic Bilateral Phyllis Mae MD [address] [place] [address] Status Reason Specialty Diagnoses / Procedures Re ferred By Contact Referred To Contact Pending Review Cardiology Diagnoses Left carotid artery stenosis History of carotid endarterectomy Procedures Carotid Duplex Cameron Munguia III, DO [address] [place] [address] Status Reason Specialty Diagnoses / Procedures Re ferred By Contact Referred To Contact Authorized Cardiology Diagnoses Stenosis of left carotid artery History of right-sided carotid endarterectomy Procedures Carotid Duplex Cameron Munguia III, DO [address] [place] [address] Status Reason Specialty Diagnoses / Procedures Referred By Contact Referred To Contact Authorized Cardiology Diagnoses Stenosis of left iliac artery (HCC) Procedures Segmental Doppler Lower Extremity Arterial W Exercise Cameron Munguia III, DO [address] [place] [address] Status Reason Specialty Diagnoses / Procedures Referred By Contact Referred To Contact Closed Vascular Surgery / Cardiology Diagnoses Chest pain, unspecified type Bilateral carotid artery stenosis Aquiles Bay MD [address] [address] Cameron Munguia III, DO [address] [place] [address] Status Reason Specialty Diagnoses / Procedures Referre d By Contact Referred To Contact Closed Cardiology Diagnoses Prominent abdominal aortic pulse Procedures Ultrasound abdominal aorta duplex limited [place] MD [address] [address] Status Reason Specialty Diagnoses / Procedures Referred By Contact Referred To Contact Pending Review Patient Preference Home Health Services Diagnoses Acute UTI Metabolic encephalopathy Neck pain PAD (peripheral artery disease) ([facility]) PVD (peripheral vascular disease) ([facility]) Type 2 diabetes mellitus with stage 3b chronic kidney disease, with long-term current use of insulin (HCC) Essential hypertension ELBA (acute kidney injury) ([facility]) Bryce Alvarez MD [address] [place] [address] Specialty Diagnoses / Procedures Referred By Contac t Referred To Contact Cardiology Diagnoses GREEN (dyspnea on exertion) Procedures Echocardiogram complete [place] MD [address] [address] Referral ID Status Reason Start Date Expiration Date V isits Requested Visits Authorized [id number] Pending Review 06/02/2022 06/02/2023 1 1 Specialty Diagnoses / Procedures Referred By Contac t Referred To Contact Wound Care Diagnoses Non-pressure chronic ulcer of left lower leg, 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) Christopher Galindo PA-C [address] [place] [address] Maureen Brown MD [address] [place] [id number] [place] [phone] Referral ID Status Reason Start Date Expiration Date Visits Requested Visits Authorized [id number] Authorized Specialty Services Required/Nataliia goodrich's Best Interest 11/10/2022 11/10/2023 1 1 Specialty Diagnoses / Procedures Referred By Contac t Referred To Contact Radiology Diagnoses 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HCC) Procedures NM Brain Datscan SPECT CT Single Area Single Day Deshaun Rodrigues MD [address] [facility] [place] [address] Nuclear Medicine [address] [place] [address] Referral ID Status Reason Start Date Expiration Date V isits Requested Visits Authorized [id number] New Request 04/05/2023 04/04/2024 4 4 Specialty Diagnoses / Procedures Referred By Contac t Referred To Contact Podiatry Diagnoses Diabetic polyneuropathy associated with type 2 diabetes mellitus (HCC) Deshaun Rodrigues MD [address] [place] [phone] BHUMIKA Lin, DPM [address] [place] [address] Referral ID Status Reason Start Date Expiration Date V isits Requested Visits Authorized [id number] Pending Review 10/11/2023 10/10/2024 1 1 Specialty Diagnoses / Procedures Referred By Contac t Referred To Contact Home Health Services Diagnoses Gait difficulty Muscle weakness of lower extremity Recurrent falls Phyllis Mae MD [address] [place] [address] [place] [address] [place] [address] Referral ID Status Reason Start Date Expiration Date Visits Requested Visits Authorized [id number] Pending Review Specialty Services Required 12/14/2023 12/13/2024 [...] Arterial BHUMIKA Lin, DPM [address] [place] [address] [facility] Yelena [address] [place] [address] [place] [address] Referral ID Status Reason Start Date Expiration Date V isits Requested Visits Authorized [id number] Authorized 12/19/2023 12/18/2024 1 1 Specialty Diagnoses / Procedures Referred By Contac t Referred To Contact Home Health Services Diagnoses Weakness of upper extremity Weakness of both lower extremities Recurrent falls Neck pain H/O: CVA (cerebrovascular accident) Essential tremor Neurogenic claudication Phyllis Mae MD [address] [place] [address] [place] [address] [place] [address] Referral ID Status Reason Start Date Expiration Date Visits Requested Visits Authorized [id number] Pending Review Specialty Services Required 02/27/2024 02/26/2025 999 999 Specialty Diagnoses / Procedures Referred By Contac t Referred To Contact Hematology and Oncology Diagnoses Thrombocytopenia (CMS-HCC) Phyllis Mae MD [address] [place] [address] Referral ID Status Reason Start Date Expiration Date Visits Requested Visits Authorized [id number] Authorized Specialty Services Required 07/25/2024 07/25/2025 1 1 Specialty Diagnoses / Procedures Referred By Contac t Referred To Contact Radiology Diagnoses Thrombocytopenia (CMS-HCC) Procedures US abdomen limited liver Phyllis Mae MD [address] [place] [address] Referral ID Status Reason Start Date Expiration Date Visits Requested Visits Authorized [id number] Authorized Perform Procedure 07/25/2024 07/25/2025 1 1 Specialty Diagnoses / Procedures Referred By Contac t Referred To Contact Home Health Services Diagnoses Chronic obstructive pulmonary disease, unspecified Phyllis Mae MD [address] [place] [address] Referral ID Status Reason Start Date Expiration Date Visits Requested Visits Authorized [id number] Authorized Specialty Services Required 07/25/2024 07/25/2025 999 [...] be sent through Care Everywhere. * Pneumonia (Croatian) documented in this encounter* Instructions* Silvia Ken, SEDA - 06/05/2019 Using a Metered-Dose Inhaler: Care [...] Log into your personal health record on [email or web address] and enter K111 in the "Education" box to learn more about "Using a Metered-Dose Inhaler: Care Instructions." Current as of: July 04, 2018 Content Version: 09.29 [employer]. Care instructions adapted under license by your healthcare professional. If you have questions about a medical condition or this instruction, always ask your healthcare professional. [employer] disclaims any warranty or liability for your use of this information. Avoiding COPD Triggers (01:49) Your health professional recommends that you watch this short online health video. Learn how to avoid the things that make your COPD symptoms worse. How to watch the video Scan the QR code OR Visit the website [email or web address] Current as of: July 04, 2018 Content Version: 09.29 [employer]. Care instructions adapted under license by your healthcare professional. If you have questions about a medical condition or this instruction, always ask your healthcare professional. [employer] disclaims any warranty or liability for your use of this information. Breathing treatments as prescribed. Continue antibiotics. * Attachments The following attachments cannot be sent through Care Everywhere. * COPD Exacerbation Plan (Croatian) documented in this encounter* Attachments The following attachments cannot be sent through Care Everywhere. * Alcohol Use Disorder: General Info (Croatian) * Fall Prevention (Croatian) documented in this encounter* Instructions* Ray Scherer MD - 06/10/2020 Hold ASA and Plavix til the * Attachments The following attachments cannot be sent through Care Everywhere. * Rib Fracture (Croatian) * Facial Fracture (Croatian) documented in this encounter Chief Complaint F/U HOSPITAL/PRISON. HAS BEEN B/P MEDS X 2 WEEKS. AT HOSPITAL CALLED IN TRAMADOL BUT IT ISNOT CONTROLLING THE PAIN. THE HOSPITAL D/C A LOT OF HIS MEDS AND PT AND HIS WANTS TO DISCUSS TO YOU.F/U HOSPITAL/PRISON. HAS BEEN B/P MEDS X 2 WEEKS. AT HOSPITAL CALLED IN TRAMADOL BUT IT ISNOT CONTROLLING THE PAIN. THE HOSPITAL D/C A LOT OF HIS MEDS AND PT AND HIS WANTS TO DISCUSS TO YOU.1 MO FU SPINE AND NECK XRAYS1 MONTH F/U. DOING PT 3 TIMES A WEEK1 MONTH F/U. DOING PT 3 TIMES A WEEK3 WEEK F/U WITH LABS. 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 PATIENT CONTINUES PHYSICAL THERAPY FOR LOW BACK PAIN WHICH HAS BEEN BENEFICIAL. STILL HAS TROUBLE SLEEPING AT NIGHT BUT TRAZODONE DOES HELP. C/O ITCHY AND WATERY EYES FOR THE LAST COUPLE WEEKS - VISINE TX WITH NO RELIEF.3 WEEK F/U WITH LABS. 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 PATIENT CONTINUES PHYSICAL THERAPY FOR LOW BACK PAIN WHICH HAS BEEN BENEFICIAL. STILL HAS TROUBLE SLEEPING AT NIGHT BUT TRAZODONE DOES HELP. C/O ITCHY AND WATERY EYES FOR THE LAST COUPLE WEEKS - VISINE TX WITH NO RELIEF.3 WEEK F/U WITH LABS. 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 D/C NIFEDIPINE LAST WEEK DUE TO LOW [...] Reason for Visit Chief Complaint Admit Date PRISON LAB WORK January 27, 2025 4 :00am Chief Complaint Admit Date PRISON LAB WORK January 27, 2025 4 :00am PRISON LAB WORK February 19, 2025 8 :10am PRISON LAB WORK February 23, 2025 5 :50pm R KNEE AND ANKLE PAIN, HYPOTENSION April 10, 2025 3:16pm Chief Complaint Admit Date PRISON LAB WORK January 27, 2025 4 :00am PRISON LAB WORK February 19, 2025 8 :10am PRISON LAB WORK February 23, 2025 5 :50pm R KNEE AND ANKLE PAIN, HYPOTENSION April 10, 2025 3:16pm PRISON LAB WORK April 16, 2025 4: 00am RIGHT FIBULA April 17, 2025 9:12 am Reason for Visit Admit Date Closed right ankle fracture April 17, 2 025 9:12am Chief Complaint Admit Date R KNEE AND ANKLE PAIN, HYPOTENSION April 10, 2025 3:16pm PRISON LAB WORK April 16, 2025 4: 00am RIGHT FIBULA April 17, 2025 9:12 am PRISON LAB WORK April 22, 2025 5: 00am LABWORK May 28, 2025 5:00 am LABWORK May 30, 2025 5:0 0am PRISON LAB WORK June 11, 2025 5:00am Additional [...] chest pains. Said he recently stated a [facility] had to walk up 2 [...] PCP . He follows closely with his special diet cook and fitter hand. documented in this encounter Associated Problem(s): Closed [...] cell attenuation consistent with hemorrhage. Transfer from [place] for Trauma tertiary evaluation. Loading CT head, [...] stress echocardiogram Aqu[place] MD [address] [address] Status Reason Specialty Diagnoses / Procedures Referre d By Contact Referred To Contact Closed Cardiology Diagnoses Bilateral carotid artery stenosis Procedures Carotid Duplex [place] MD [address] [address] Status Reason Specialty Diagnoses / Procedures Referre d By Contact Referred To Contact Closed Radiology Diagnoses Screening for malignant neoplasm of respiratory organ Cigarette Smoker Procedures CT Lung Cancer Screening Lola Barksdale MD [address] [address] Reason Comments Follow-up LDCT chest Reason Comments [...] Phyllis Mae MD [address] [place] [address] Susan Baptiste MD [facility] [place] [address] Reason Comments Trauma Stroke Alert Status Reason Specialty Diagnoses / Procedures Referre d By Contact Referred To Contact Closed Radiology Diagnoses Chest pain, unspecified type PVD (peripheral vascular disease) (HCC) Procedures NM Myocardial Perfusion Multiple SPECT [place] MD [address] [address] Status Reason Specialty Diagnoses / Procedures Referre d By Contact Referred To Contact Closed Radiology Diagnoses Screening for malignant neoplasm of respiratory organ Cigarette Smoker Procedures CT Lung Cancer Screening Lola Barksdale MD [address] [place] [address] Reason Comments Trauma Status Reason Specialty Diagnoses / Procedures Referre d By Contact Referred To Contact Closed Radiology Diagnoses Nipple pain Procedures Mammography Diagnostic Bilateral Phyllis Mae MD [address] [place] [id number] Reason Comments TELEHEALTH PH. [phone] -6M O Shortness of Breath W/ EXERTION lightheaded upon standing Fatigue Reason Comments Follow-up seg, car Reason Comments Follow-up review abd/carotid Status Reason Specialty Diagnoses / Procedures Referred By Contact Referred To Contact Closed Vascular Surgery / Cardiology Diagnoses Chest pain, unspecified type Bilateral carotid artery stenosis [place] MD [address] [address] Cameron Munguia III, DO [address] [place] [address] Reason Comments Medication Refill Reason Comments proactive outreach Status Reason Specialty Diagnoses / Procedures Referre d By Contact Referred To Contact Closed Cardiology Diagnoses Prominent abdominal aortic pulse Procedures Ultrasound abdominal aorta duplex limited [place] MD [address] [address] Reason Comments Follow-up Reason Comments Abnormal Lab [...] Reason Comments Hospital Follow-up F/U HOSPITAL DISCHAR [facility] 02/27/23 - COPD EXACERBATION, LEFT RIB PAIN. [...] Reason Comments Diabetic Foot Exam A1c: 8.6DLS: 10/11/2 3 Wound Check Right foot wound clement [...] HE HAS BEEN LIVING WITH SON AND [id number] BUT ATTEMPTED ADMISSION TO [facility]. C/O EPISODES OF HYPOGLYCEMIA - [...] section and content) DATE CREATED AUTHOR 11/16/2018 [facility] DATE CREATED AUTHOR AUTHOR'S ORGANIZ ATION 11/23/2018 [facility] DATE CREATED AUTHOR AUTHOR'S ORGANIZ ATION 12/11/2018 [facility] DATE CREATED AUTHOR AUTHOR'S ORGANIZ ATION 07/05/2019 [facility] DATE CREATED AUTHOR AUTHOR'S ORGANIZ ATION 04/14/2020 [facility] DATE CREATED AUTHOR AUTHOR'S ORGANIZ ATION 05/21/2020 [facility] DATE CREATED AUTHOR AUTHOR'S ORGANIZ ATION 11/11/2022 [facility] DATE CREATED AUTHOR AUTHOR'S ORGANIZ ATION 12/30/2022 [facility] DATE CREATED AUTHOR AUTHOR'S ORGANIZ ATION 12/30/2022 [facility] DATE CREATED AUTHOR AUTHOR'S ORGANIZ ATION 08/07/2024 [facility] DATE CREATED AUTHOR AUTHOR'S ORGANIZ ATION 09/27/2024 [facility] DATE CREATED AUTHOR AUTHOR'S ORGANIZ ATION 11/15/2024 [facility] DATE CREATED AUTHOR AUTHOR'S ORGANIZ ATION 01/04/2025 [facility] DATE CREATED AUTHOR AUTHOR'S ORGANIZ ATION 03/11/2025 [facility] DATE CREATED AUTHOR AUTHOR'S ORGANIZ ATION 08/26/2025 [facility] Esmer Cheng RN - 05/27/2019 12:40 [...] RT for breathing treatment ED PROVIDER NOTE [facility] EM[facility] NAME: Stevo Germain AGE: 69 y.o. : 1950 VISIT DATE: 05/27/2019 CSN: [id number] PCP: Phyllis Mae MD Chief Complaint Patient [...] Peptic ulcer disease PVD (peripheral vascular disease) ([facility]) Rhabdomyolysis 2010 Stroke (HCC) 2010 R side Past Surgical History: Procedure Laterality Date carotid angio 2010 HAND SURGERY Right 2009 [place] THROMBOENDARTECTMY NECK,NECK INCIS Right 2010 SHOULDER OPEN [...] on file Occupational History Occupation: Disability Comment: [employer] Social Needs Financial resource strain: Not on [...] file Gets together: Not on file Attends alevism service: Not on file Active member of [...] size. 5. Multilevel degenerative changes of the xkp-zx-pflmo thoracic spine are redemonstrated. [facility] Workstation ID: [id number] Procedures MDM Number [...] MD. Specialty: Internal Medicine [address] [place] [address] Contact information for after-discharge care Follow-up information [...] Associated Order(s): EKG 12-lead ED PROVIDER NOTE [facility] EMERGENCY DEPARTMENT NAME: Stevo Germain AGE: 69 y.o. : 1950 VISIT DATE: 06/05/2019 CSN: [id number] PCP: Phyllis Mae MD Chief Complaint Patient [...] CKD (chronic kidney disease) Stage III Claudication ([facility]) COPD (chronic obstructive pulmonary disease) ([facility]) Diabetes mellitus (HCC) Essential tremor History of pneumonia Hyperlipidemia Hypertension Leg cramps MGUS (monoclonal gammopathy of unknown significance) Peptic ulcer disease PVD (peripheral vascular disease) ([facility]) Rhabdomyolysis 2010 Stroke ([facility]) 2010 R side Past Surgical History: Procedure Laterality Date carotid angio 2010 HAND SURGERY Right 2009 FL THROMBOENDARTECTMY NECK,NECK INCIS Right 2009 SHOULDER OPEN [...] on file Occupational History Occupation: Disability Comment: [employer] Social Needs Financial resource strain: Not [...] file Gets together: Not on file Attends alevism service: Not on file Active member of [...] normal T Waves: T waves normal normal FL interval normal QRS interval Clinical impression: normal [...] Why: If symptoms worsen [address] [place] [address] Contact information for after-discharge care Follow-up information [...] dr mathis is on stroke network monitor [facility] ED Attending Note: NAME: Stevo Germain 70 y.o. CSN: [id number] PCP: Phyllis Mae MD History: Chief Complaint: [...] file Gets together: Not on file Attends alevism service: Not on file Active member of [...] and APTT. Procedure Abnormality Status --------- ------ PT/INR[[id number]] Normal Final result APTT[[id number]] Normal Final result Please view results for these tests on the individual orders. OBTAIN VENOUS BLOOD GASES AND PERFORM TYPE AND SCREEN CT Lumbar Spine Without Contrast Reconstructed Preliminary Result No acute fracture or traumatic malalignment. /[employer] Workstation ID: [id number] CT Thoracic Spine Without Contrast Reconstructed Preliminary Result No acute fracture or traumatic malalignment. /[employer] Workstation ID: [id number] CT Chest Abdomen Pelvis Without Contrast Preliminary Result No acute findings. No acute displaced rib fractures. Multiple chronic bilateral healed rib fractures. No acute fracture of the pelvis. Chronic findings of hepatic steatosis, cholelithiasis, mild pancreatic duct dilatation and moderate pulmonary emphysema. Moderately severe atherosclerotic disease. Stable mild fusiform aneurysmal dilatation of the descending thoracic aorta. /[employer] Workstation ID: [id number] CT Cervical Spine Without Contrast Preliminary Result No acute fracture or traumatic malalignment. Miaziodx-ys-cqayej multilevel degenerative changes. /[facility] Workstation ID: [id number] CT Head Or Brain [...] being discharged to home BRANDIE SCHERER MD [facility] Emergency Department (Please note that portions of this note have been completed with a voice recognition software. Efforts were made to correct any errors, but occasionally words are mis-transcribed.) Ray Scherer MD 04/14/[address] XRAY CARTSIDE ROLLED TO EVAL BACK, C SPINE MAINTAINED BY MARIANO STACK Alert called to Stroke Network to activate Cart at this time documented in this encounter [facility] ED Attending Note: NAME: Stevo Germain 70 y.o. CSN: [id number] PCP: Phyllis Mae MD History: Chief Complaint: [...] Stage III COPD (chronic obstructive pulmonary disease) ([facility]) Diabetes mellitus ([facility]) TYPE 2 Essential tremor History of pneumonia Hyperlipidemia Hypertension Leg cramps Leg heaviness MGUS (monoclonal gammopathy of unknown significance) Peptic ulcer disease PVD (peripheral vascular disease) ([facility]) Rhabdomyolysis 2010 Stroke ([facility]) 2010 R side PMSx: Past Surgical History: Procedure Laterality Date carotid angio 2010 HAND SURGERY Right 2009 [place] THROMBOENDARTECTMY NECK,NECK INCIS Right 2010 SHOULDER OPEN [...] on file Occupational History Occupation: Disability Comment: [employer] Social Needs Financial resource strain: Not on [...] file Gets together: Not on file Attends alevism service: Not on file Active member of [...] as needed for cough . blood-glucose meter [facility] Accu-chek Elli plus meter. Use as directed [...] 3. Closed extensive facial fractures, initial encounter ([facility]) 4. Closed fracture of multiple ribs of [...] Start: 06/16/20. Route: Oral BRANDIE SCHERER MD [facility] Emergency Department (Please note that portions of this note have been completed with a voice recognition software. Efforts were made to correct any errors, but occasionally words are mis-transcribed.) Ray Scherer MD 06/10/201851 JAZ TRAUMA FERRIS WHEEL OPERATOR, [facility]. documented in this encounter Amanda Gorman CNP - 06/10/2020 5:57 PM EDT H&P Notes (unrecognized sect ion and content) [place] TRA[facility]MA TRAUMA EVALUATION / HISTORY AND PHYSICAL [...] cell attenuation consistent with hemorrhage. Transfer from [place] [facility] for Trauma tertiary evaluation. Loading CT head, [...] of carotid endarterectomy that was transferred from [facility] after being evaluated s/p fall 2 days ago with noted facial fracture and rib fracture. Pt states 2 nights ago he got out of bed and tripped and fell onto his left face and side. Today he had a yearly PCP appointment and his PCP felt he needed to be evaluated for fracture. [facility] [facility] completed a CT head and cervical spine [...] carotid angio 2010 HAND SURGERY Right 2009 FL THROMBOENDARTECTMY NECK,NECK INCIS Right 2010 SHOULDER OPEN [...] Pupils 3 mm equal and reactive bilaterally. [place] Coma Scale EYES (4-spont, 3-to verb stim, [...] this patient. documented in this encounter Felicitas Cline, SEDA - 04/28/2020 10:00 AM EDT Nursing Notes [...] at 2100 2025 (Given - Provider: Radha Barksdale, RN) 2050 (Given - Provider: Rocío Matthews, RN) budesonide-formoteroL (SYMBICORT) 160-4.5 mcg/actuation inhaler 2 puff 2 puff, Inhalation, 2 times daily (RT), First dose on Mon04/27/21 at 2200 0824 (Given - Provider: Judi Sorto, SEDA)2024 (Given - Provider: Radha Barksdale RN) 0900 [...] Food 0824 (Given - Provider: Judi Sorto, RN)1735 (Given - Provider: Judi Sorto RN) 0928 (Given - Provider: Rachel Bridges, RN)174 (Given - Provider: Rachel Bridges, RN) 0944 (Given - Provider: Richardson Lema, RN) clopidogreL (PLAVIX) tablet 75 mg 75 mg, Oral, Daily, First dose on Mon04/28/21 at 0900 0824 (Given - Provider: Patesha Macario, RN) 0928 (Given - Provider: Rachel Bridges, RN) [...] Radha Barksdale RN)1743 (Given - Provider: Rachel Bridges, RN)2101 (Given - Provider: Rocío Matthews, RN) 0533 (Given - Provider: Rocío Matthews, RN)1400 (Due) insulin glargine (LANTUS) injection 16 Units 16 Units, Subcutaneous, Nightly, First dose on Mon04/27/21 at 2230, Do not mix with other insulins in a syringe. Do NOT hold basal insulin without notifying physician" 2027 (Given - Provider: Radha Barksdale RN) 2257 (Given - Provider: Rocío Matthews, [...] 239) 2099 (Not Given - Provider: Rocío Matthews, RN - Reason: Order parameters not met) [...] RN) 0928 (Given - Provider: Rachel Bridges, RN)1130 (Given - Provider: Rachel Bridges RN)1743 (Given - Provider: Rachel Bridges RN) 0944 (Given - Provider: Richardson Lema, RN)1130 (Not Given - Provider: Richardson Lema, SEDA - Reason: Order parameters not met) labetaloL (NORMODYNE) tablet 100 mg 100 mg, Oral, Every 12 hours scheduled, First dose on Mon05/01/21 at 1100 0824 (Given - Provider: Judi Sorto, SEDA)2025 (Given - Provider: Radha Barksdale RN) 0928 (Given - Provider: Rachel Bridges, SEDA)2050 (Given - Provider: Rocío Matthews, SEDA) 0944 (Given - Provider: Richardson Lema, SEDA) NIFEdipine 24 hr tablet 30 mg 30 mg, Oral, Daily, First dose (after last modification) on Mon04/30/21 at 0915 0823 (Given - Provider: Judi Sorto RN) 0927 (Given - Provider: Rachel Bridges, SEDA) 0944 (Given - Provider: Richardson Lema, SEDA) pantoprazole (PROTONIX) EC tablet 40 mg 40 mg, Oral, Daily, First dose on Mon04/28/21 at 0900, DO NOT CRUSH OR CHEW. 0823 (Given - Provider: Judi Sorto, SEDA) 0927 (Given - Provider: Rachel Bridges RN) 0943 (Given - Provider: Richardson Lema, SEDA) PARoxetine (PAXIL) tablet 20 mg 20 mg, Oral, Daily, First dose on Mon04/28/21 at 0900, CATEGORY D HAZARDOUS DRUG use safe handling precautions. Use reference link to view PPE guidelines. Minimize crushing/splitting only to situations where clinically necessary. 0826 (Given - Provider: Judi Sorto RN) 09 (Given - Provider: Rachel Bridges, RN) 0944 (Given - Provider: Richardson Lema, RN) sodium bicarbonate tablet 1,300 mg 1,300 mg, Oral, 2 times daily, First dose on Mon04/27/21 at 2100 0823 (Given - Provider: Judi Sorto, RN)2025 (Given - Provider: Radha Barksdale RN) 09 (Given - Provider: Rachel Bridges, RN)2050 (Given - Provider: Rocío Matthews, SEDA) 0943 (Given - Provider: Richardson Lema, RN) sodium chloride (PF) (NS) flush 5 mL(Linked [...] to DC IV)1400 (Given - Provider: Rachel Bridges, RN)2103 (Given - Provider: Rocío Matthews, RN) 0533 (Given - Provider: Rocío Matthews, RN)1400 (Not Given - Provider: Richardson Lema, SEDA - Reason: Loss of IV access) tiotropium bromide (SPIRIVA RESPIMAT) 2.5 mcg/actuation inhaler 2 puff 2 puff, Inhalation, Daily (RT), First dose on Mon04/28/21 at 0900 0829 (Given - Provider: Judi Sorto RN) 09 (Given - Provider: Rachel Bridges, RN) 09 (Given - Provider: Richardson Lema, RN) PRN Medication Order 05/09/2021 05/10/2021 05/11/2021 acetaminophen (TYLENOL) tablet 650 mg 650 mg, Oral, Every 6 hours PRN, headaches, Starting on Madeline 04/29/21 at 1747 0407 (Return to Cabinet - Provider: Radha Barksdale, SEDA) 0213 (Given - Provider: Rayo Jara, SEDA) 1354 (Due) albuterol (PROVENTIL) 2.5 mg /3 [...] Mon04/27/21 at 1718, Anginal pain, may repeat I2nmwyreq x3, then notify physician. DO NOT CRUSH [...] at 2128 0417 (Given - Provider: Radha Barksdale RN)1107 (Given - Provider: Judi Sorto, SEDA)1746 (Given - Provider: Judi Sorto, SEDA) 0213 (Given - Provider: Rayo Jara, RN)1038 (Given - Provider: Rachel Bridges RN)2057 (Given - Provider: Rocío Matthews RN) 0538 (Given - Provider: Rocío Matthews RN)1356 (Given - Provider: Darrin Thompson, RN) [...] nausea, vomiting, Starting on e 04/27/21 at 1718
Use oral route first, if tolerated.
Care Teams (unrecognized sec tion and content) Machine Try Out Setter Relationship Specialty Start Date End Date Phyllis Mae MD [address] [place] [address] PCP - General Internal Medicine 04/14/20 Phyllis Mae MD [address] [place] [address] Internal Medicine 04/14/20 Rochelle Cheung MD [address] [place] [address] Consulting Physician Nephrology 04/12/17 Cameron Munguia III, DO [address] [place] [address] Consulting Physician Vascular Surgery 05/24/17 [place] MD [address] [address] Consulting Physician Cardiovascular Disease 05/24/17 Ellen Claudio MD [address] [place] [address] Consulting Physician Physical Medicine/Rehabilitation 05/24/17 Machine Try Out Setter Relationship Specialty Start Date End Date Phyllis Mae MD [address] [place] [address] PCP - General Internal Medicine 04/14/20 Phyllis Mae MD [address] [place] [address] Internal Medicine 04/14/20 Rochelle Cheung MD [address] [place] [address] Consulting Physician Nephrology 04/12/17 Cameron Munguia III, DO [address] [place] [address] Consulting Physician Vascular Surgery 05/24/17 [place] MD [address] [address] Consulting Physician Cardiovascular Disease 05/24/17 Ellen Claudio MD [address] [place] [address] Consulting Physician Physical Medicine/Rehabilitation 05/24/17 Machine Try Out Setter Relationship Specialty Start Date End Date Phyllis Mae MD [address] [place] [address] PCP - General Internal Medicine 04/14/20 Phyllis Mae MD [address] [place] [address] Internal Medicine 04/14/20 Rochelle Cheung MD [address] [place] [address] Consulting Physician Nephrology 04/12/17 Cameron Munguia III, DO [address] [place] [address] Consulting Physician Vascular Surgery 05/24/17 [place] MD [address] [address] Consulting Physician Cardiovascular Disease 05/24/17 Ellen Claudio MD [address] [place] [address] [phone] Consulting Physician Physical Medicine/Rehabilitation 05/24/17 Machine Try Out Setter Relationship Specialty Start Date End Date Phyllis Mae MD [address] [place] [address] PCP - General Internal Medicine 04/14/20 Phyllis Mea MD [address] [place] [address] Internal Medicine 04/14/20 Rochelle Cheung MD [address] [place] [address] Consulting Physician Nephrology 04/12/17 Cameron Munguia III, DO [address] [facility] [place] [address] Consulting Physician Vascular Surgery 05/24/17 [place] MD [address] [phone] Consulting Physician Cardiovascular Disease 05/24/17 Ellen Claudio MD [address] [place] [address] Consulting Physician Physical Medicine/Rehabilitation 05/24/17 Machine Try Out Setter Relationship Specialty Start Date End Date Phyllis Mae MD [address] [place] [address] PCP - General Internal Medicine 04/14/20 Phyllis Mae MD [address] [place] [address] Internal Medicine 04/14/20 Rochelle Cheung MD [address] [place] [address] Consulting Physician Nephrology 04/12/17 Cameron Munguia III, DO [address] [place] [address] Consulting Physician Vascular Surgery 05/24/17 [place] MD [address] [phone] Consulting Physician Cardiovascular Disease 05/24/17 Ellen Claudio MD [address] [place] [address] Consulting Physician Physical Medicine/Rehabilitation 05/24/17 Machine Try Out Setter Relationship Specialty Start Date End Date Phyllis Mae MD [address] [place] [address] PCP - General Internal Medicine 04/14/20 Phyllis Mae MD [address] [place] [address] Internal Medicine 04/14/20 Rochelle Cheung MD [address] [place] [address] Consulting Physician Nephrology 04/12/17 Cameron Munguia III, DO [address] [place] [address] Consulting Physician Vascular Surgery 05/24/17 [place] MD [address] [address] Consulting Physician Cardiovascular Disease 05/24/17 Ellen Claudio MD [address] [place] [address] Consulting Physician Physical Medicine/Rehabilitation 05/24/17 Machine Try Out Setter Relationship Specialty Start Date End Date Phyllis Mae MD [address] [place] [address] PCP - General Internal Medicine 04/14/20 Phyllis Mae MD [address] [place] [address] Internal Medicine 04/14/20 Rochelle Cheung MD [address] [place] [address] Consulting Physician Nephrology 04/12/17 Cameron Munguia III, DO [address] [place] [address] Consulting Physician Vascular Surgery 05/24/17 [place] MD [address] [address] Consulting Physician Cardiovascular Disease 05/24/17 Ellen Claudio MD [address] [place] [address] Consulting Physician Physical Medicine/Rehabilitation 05/24/17 Machine Try Out Setter Relationship Specialty Start Date End Date Phyllis Mae MD [address] [place] [address] PCP - General Internal Medicine 04/14/20 Phyllis Mae MD [address] [place] [place] [address] Internal Medicine 04/14/20 Rochelle Cheung MD [address] [place] [address] Consulting Physician Nephrology 04/12/17 Cameron Munguia III, DO [address] [place], [place] [phone] Consulting Physician Vascular Surgery 05/24/17 [place] MD [address] [phone] Consulting Physician Cardiovascular Disease 05/24/17 Ellen Claudio MD [address] [place], [place] [phone] Consulting Physician Physical Medicine/Rehabilitation 05/24/17 Machine Try Out Setter Relationship Specialty Start Date End Date Phyllis Mae MD [address] [place] [address] PCP - General Internal Medicine 04/14/20 Phyllis Mae MD [address] [place] [address] Internal Medicine 04/14/20 Rochelle Cheung MD [address] [place] [address] Consulting Physician Nephrology 04/12/17 Cameron Munguia III, DO [address] [place] [address] Consulting Physician Vascular Surgery 05/24/17 [place] MD [address] [place] [address] Consulting Physician Cardiovascular Disease 05/24/17 Ellen Claudio MD [address] [facility] [place] [address] Consulting Physician Physical Medicine/Rehabilitation 05/24/17 Machine Try Out Setter Relationship Specialty Start Date End Date Phyllis Mae MD [address] [place] [address] PCP - General Internal Medicine 11/28/18 04/13/20 Phyllis Mae MD [address] [place] [address] PCP - General Internal Medicine 04/14/20 Phyllis Mae MD [address] [place] [address] Internal Medicine 04/14/20 Rochelel Cheung MD [address] [place] [address] Consulting Physician Nephrology 04/12/17 Cameron Munguia III, DO [address] [place] [address] Consulting Physician Vascular Surgery 05/24/17 [place] MD [address] [place] [address] Consulting Physician Cardiovascular Disease 05/24/17 Ellen Claudio MD 293 [facility] [place] [address] Consulting Physician Physical Medicine/Rehabilitation 05/24/17 Machine Try Out Setter Relationship Specialty Start Date End Date Phyllis Mae MD [address] [place] [address] PCP - General Internal Medicine 11/28/18 04/13/20 Phyllis Mae MD [address] [place] [address] PCP - General Internal Medicine 04/14/20 Phyllis Mae MD [address] [place] [address] Internal Medicine 04/14/20 Rochelle Cheung MD [address] [place] [address] Consulting Physician Nephrology 04/12/17 Cameron Munguia III, DO [address] [place] [address] Consulting Physician Vascular Surgery 05/24/17 [place] MD [address] [address] Consulting Physician Cardiovascular Disease 05/24/17 Ellen Claudio MD [address] [place] [address] Consulting Physician Physical Medicine/Rehabilitation 05/24/17 Machine Try Out Setter Relationship Specialty Start Date End Date Jose Dailey MD [address] [place] [address] PCP - General Internal Medicine 09/23/16 11/27/18 Phyllis Mae MD [address] [place] [address] PCP - General Internal Medicine 11/28/18 04/13/20 Phyllis Mae MD [address] [place] [address] PCP - General Internal Medicine 04/14/20 Phyllis Mae MD [address] [place] [address] Internal Medicine 04/14/20 Rochelle Cheung MD [address] [place] [address] Consulting Physician Nephrology 04/12/17 Cameron Munguia III, DO [address] [place], [place] [phone] Consulting Physician Vascular Surgery 05/24/17 [place] MD [address] [phone] Consulting Physician Cardiovascular Disease 05/24/17 Ellen Claudio MD [address] [place], [place] [phone] Consulting Physician Physical Medicine/Rehabilitation 05/24/17 Machine Try Out Setter Relationship Specialty Start Date End Date Phyllis Mae MD [address] [place] [address] PCP - General 07/02/19 Phyllis Mae MD [address] [place] [address] PCP - [employer] Medicare Advantage PCP 10/30/21 Marley Velarde, photo lab technicianPrimary Montessori Teacher 03/03/23 Machine Try Out Setter Relationship Specialty Start Date End Date Phyllis Mae MD [address] [place] [address] PCP - General Internal Medicine 04/14/20 Phyllis Mae MD [address] [place] [address] Internal Medicine 04/14/20 Rochelle Cheung MD [address] [place] [address] Consulting Physician Nephrology 04/12/17 Cameron Munguia III, DO [address] [place] [address] Consulting Physician Vascular Surgery 05/24/17 [place] MD [address] [phone] Consulting Physician Cardiovascular Disease 05/24/17 Ellen Claudio MD [address] [place] [address] [phone] Consulting Physician Physical Medicine/Rehabilitation 05/24/17 Machine Try Out Setter Relationship Specialty Start Date End Date Phyllis Mae MD [address] [place] [address] PCP - General Internal Medicine 04/14/20 Phyllis Mae MD [address] [place] [address] Internal Medicine 04/14/20 Rochelle Cheung MD [address] [place] [address] Consulting Physician Nephrology 04/12/17 Cameron Munguia III, [address] [place] [address] Consulting Physician Vascular Surgery 05/24/17 [place] MD [address] [address] Consulting Physician Cardiovascular Disease 05/24/17 Ellen Claudio MD [address] [place] [address] Consulting Physician Physical Medicine/Rehabilitation 05/24/17 Machine Try Out Setter Relationship Specialty Start Date End Date Phyllis Mae MD [address] [place] [address] PCP - General Internal Medicine 04/14/20 Phyllis Mae MD [address] [place] [address] Internal Medicine 04/14/20 Rochelle Cheung MD [address] [place] [address] Consulting Physician Nephrology 04/12/17 Cameron Munguia III, DO [address] [place] [address] Consulting Physician Vascular Surgery 05/24/17 [place] MD [address] [address] Consulting Physician Cardiovascular Disease 05/24/17 Ellen Claudio MD [address] [place] [address] Consulting Physician Physical Medicine/Rehabilitation 05/24/17 Machine Try Out Setter Relationship Specialty Start Date End Date Phyllis Mae MD [address] [place] [address] PCP - General 07/02/19 Phyllis Mae MD [address] [address] PCP - [employer] Medicare Advantage PCP 10/30/21 Machine Try Out Setter Relationship Specialty Start Date End Date Phyllis Mae MD [address] [place] [address] PCP - General Internal Medicine 04/14/20 Phyllis Mae MD [address] [place] [address] Internal Medicine 04/14/20 Rochelle Cheung MD [address] [place] [address] Consulting Physician Nephrology 04/12/17 Cameron Munguia III, DO [address] [place] [address] Consulting Physician Vascular Surgery 05/24/17 [place] MD [address] [address] Consulting Physician Cardiovascular Disease 05/24/17 Ellen Claudio MD [facility] [place] [address] Consulting Physician Physical Medicine/Rehabilitation 05/24/17 Machine Try Out Setter Relationship Specialty Start Date End Date Phyllis Mae MD [address] [place] [address] PCP - General Internal Medicine 04/14/20 Phyllis Mae MD [address] [place] [address] Internal Medicine 04/14/20 Rochelle Cheung MD [address] [place] [address] Consulting Physician Nephrology 04/12/17 Cameron Munguia III, DO [facility] [place] [address] Consulting Physician Vascular Surgery 05/24/17 [place] MD [address] [address] Consulting Physician Cardiovascular Disease 05/24/17 Ellen Claudio MD [address] [place] [address] Consulting Physician Physical Medicine/Rehabilitation 05/24/17 Machine Try Out Setter Relationship Specialty Start Date End Date Phyllis Mae MD [address] Zelaya[place] [address] PCP - General 07/02/19 Phyllis Mae MD [address] [place] [address] PCP - [employer] Medicare Advantage PCP 10/30/21 Machine Try Out Setter Relationship Specialty Start Date End Date Phyllis Mae MD [address] [place] [address] PCP - General Internal Medicine 04/14/20 Phyllis Mae MD [address] [place] [address] Internal Medicine 04/14/20 Rochelle Cheung MD [address] [place] [address] Consulting Physician Nephrology 04/12/17 Cameron Munguia III, DO [facility] [place] [address] Consulting Physician Vascular Surgery 05/24/17 [place] MD [address] [place] [address] Consulting Physician Cardiovascular Disease 05/24/17 Ellen Claudio MD [address] [place] [address] [place] [address] Consulting Physician Physical Medicine/Rehabilitation 05/24/17 Machine Try Out Setter Relationship Specialty Start Date End Date Phyllis Mae MD [address] [place] [address] PCP - General Internal Medicine 04/14/20 Phyllis Mae MD [address] [place] [address] Internal Medicine 04/14/20 Rochelle Cheung MD [address] [place] [address] Consulting Physician Nephrology 04/12/17 Cameron Munguia III, DO [address] [place] [address] Consulting Physician Vascular Surgery 05/24/17 [place] MD [address] [address] Consulting Physician Cardiovascular Disease 05/24/17 Ellen Claudio MD [address] [place] [address] Consulting Physician Physical Medicine/Rehabilitation 05/24/17 Machine Try Out Setter Relationship Specialty Start Date End Date Phyllis Mae MD [address] [place] [address] PCP - General Internal Medicine 04/14/20 Phyllis Mae MD [address] [place] [address] Internal Medicine 04/14/20 Rochelle Cheung MD [address] [place] [address] Consulting Physician Nephrology 04/12/17 Cameron Munguia III, DO [address] [place] [address] Consulting Physician Vascular Surgery 05/24/17 [place] MD [address] [address] Consulting Physician Cardiovascular Disease 05/24/17 Ellen Claudio MD [address] [place] [address] Consulting Physician Physical Medicine/Rehabilitation 05/24/17 Machine Try Out Setter Relationship Specialty Start Date End Date Phyllis Mae MD [address] [place] [address] PCP - General Internal Medicine 04/14/20 Phyllis Mae MD [address] [place] [address] Internal Medicine 04/14/20 Rochelle Cheung MD [address] [place] [address] Consulting Physician Nephrology 04/12/17 Cameron Munguia III, DO [address] [place], [place] [address] [place] [address] Consulting Physician Vascular Surgery 05/24/17 [place] MD [address] [place] [address] Consulting Physician Cardiovascular Disease 05/24/17 Ellen Claudio MD [address] [place] [address] Consulting Physician Physical Medicine/Rehabilitation 05/24/17 Machine Try Out Setter Relationship Specialty Start Date End Date Phyllis Mae MD [address] [place] [address] PCP - General 07/02/19 Phyllis Mae MD [address] [place] [address] PCP - [employer] Medicare Advantage PCP 10/30/21 Machine Try Out Setter Relationship Specialty Start Date End Date Phyllis Mae MD [address] [place] [address] PCP - General 07/02/19 Phyllis Mae MD [address] [place] [address] PCP - [employer] Medicare Advantage PCP 10/30/21 Machine Try Out Setter Relationship Specialty Start Date End Date Phyllis Mae MD [address] [place] [address] PCP - General Internal Medicine 04/14/20 Phyllis Mae MD [address] [place] [address] Internal Medicine 04/14/20 Rochelle Cheung MD [address] [place] [address] Consulting Physician Nephrology 04/12/17 Cameron Munguia III, DO [address] [place] [address] Consulting Physician Vascular Surgery 05/24/17 [place] MD [address] [address] Consulting Physician Cardiovascular Disease 05/24/17 Ellen Claudio MD [address] [place], [place] [address] [address] Consulting Physician Physical Medicine/Rehabilitation 05/24/17 Machine Try Out Setter Relationship Specialty Start Date End Date Phyllis Mae MD [address] [place] [address] PCP - General Internal Medicine 04/14/20 Phyllis Mae MD [address] [place] [address] Internal Medicine 04/14/20 Rochelle Cheung MD [address] [place] [address] Consulting Physician Nephrology 04/12/17 Cameron Munguia III, DO [address] [place] [address]joni[address] [place] [address] Consulting Physician Vascular Surgery 05/24/17 [place] MD [address] [address] Consulting Physician Cardiovascular Disease 05/24/17 Ellen Claudio MD [address] [place] [address] Consulting Physician Physical Medicine/Rehabilitation 05/24/17 Machine Try Out Setter Relationship Specialty Start Date End Date Phyllis Mae MD [address] [place] [address] PCP - General Internal Medicine 04/14/20 Phyllis Mae MD [address] [place] [address] Internal Medicine 04/14/20 Rochelle Cheung MD [address] [place] [address] Consulting Physician Nephrology 04/12/17 Cameron Munguia III, DO [address] [place] [address] Consulting Physician Vascular Surgery 05/24/17 [place] MD [address] [address] Consulting Physician Cardiovascular Disease 05/24/17 Ellen Claudio MD [address] [place] [address] [place] [address] Consulting Physician Physical Medicine/Rehabilitation 05/24/17 Machine Try Out Setter Relationship Specialty Start Date End Date Phyllis Mae MD [address] [place] [address] PCP - General Internal Medicine 04/14/20 Phyllis Mae MD [address] [place] [address] Internal Medicine 04/14/20 Rochelle Cheung MD [address] [place] [address] Consulting Physician Nephrology 04/12/17 Cameron Munguia III, DO [address] [place] [address] Consulting Physician Vascular Surgery 05/24/17 [place] MD [address] [address] Consulting Physician Cardiovascular Disease 05/24/17 Ellen Claudio MD [address] [place] [address] Consulting Physician Physical Medicine/Rehabilitation 05/24/17 Machine Try Out Setter Relationship Specialty Start Date End Date Phyllis Mae MD [address] [place] [address] PCP - General Internal Medicine 04/14/20 Phyllis Mae MD [address] [place] [address] Internal Medicine 04/14/20 Rochelle Cheung MD [address] [place] [address] Consulting Physician Nephrology 04/12/17 Cameron Munguia III, DO [facility] [place] [address] Consulting Physician Vascular Surgery 05/24/17 [place] MD [address] [place] [address] Consulting Physician Cardiovascular Disease 05/24/17 Ellen Claudio MD [address] [place] [address] Consulting Physician Physical Medicine/Rehabilitation 05/24/17 Machine Try Out Setter Relationship Specialty Start Date End Date Phyllis Mae MD [address] [place] [address] PCP - General Internal Medicine 04/14/20 Phyllis Mae MD [address] [place] [address] Internal Medicine 04/14/20 Rochelle Cheung MD [address] [place] [address] Consulting Physician Nephrology 04/12/17 Cameron Munguia III, DO [address] [facility] [place] [place] [address] Consulting Physician Vascular Surgery 05/24/17 [place] MD [address] [place] [address] Consulting Physician Cardiovascular Disease 05/24/17 Ellen Claudio MD [address] [place] [address] Consulting Physician Physical Medicine/Rehabilitation 05/24/17 Machine Try Out Setter Relationship Specialty Start Date End Date Phyllis Mae MD [address] [place] [address] PCP - General Internal Medicine 04/14/20 Phyllis Mae MD [address] [place] [address] Internal Medicine 04/14/20 Rochelle Cheung MD [address] [place] [address] Consulting Physician Nephrology 04/12/17 Cameron Munguia III, 335 [facility] [place] [place] [address] Consulting Physician Vascular Surgery 05/24/17 [place] MD [address] [address] Consulting Physician Cardiovascular Disease 05/24/17 Ellen Claudio MD [address] [place] [address] Consulting Physician Physical Medicine/Rehabilitation 05/24/17 Machine Try Out Setter Relationship Specialty Start Date End Date Phyllis Mae MD [address] [place] [address] PCP - General Internal Medicine 04/14/20 Phyllis Mae MD [address] [place] [address] Internal Medicine 04/14/20 Rochelle Cheung MD [address] [place] [address] Consulting Physician Nephrology 04/12/17 Cameron Munguia III, DO [facility] [place] [address] Consulting Physician Vascular Surgery 05/24/17 [place] MD [address] [address] Consulting Physician Cardiovascular Disease 05/24/17 Ellen Claudio MD [address] [place] [address] Consulting Physician Physical Medicine/Rehabilitation 05/24/17 Machine Try Out Setter Relationship Specialty Start Date End Date Phyllis Mae MD [address] [place] [address] PCP - General Internal Medicine 04/14/20 Phyllis Mae MD [address] [place] [address] Internal Medicine 04/14/20 Rochelle Cheung MD [address] [place] [address] Consulting Physician Nephrology 04/12/17 Cameron Munguia III, DO [facility] [place] [address] Consulting Physician Vascular Surgery 05/24/17 [place] MD [address] [place] [address] Consulting Physician Cardiovascular Disease 05/24/17 Ellen Claudio MD [address] [place] [address] Consulting Physician Physical Medicine/Rehabilitation 05/24/17 Machine Try Out Setter Relationship Specialty Start Date End Date Phyllis Mae MD [address] [place] [address] PCP - General Internal Medicine 04/14/20 Phyllis Mae MD [address] [place] [address] Internal Medicine 04/14/20 Rochelle Cheung MD [address] [place] [address] Consulting Physician Nephrology 04/12/17 Cameron Munguia III, DO [address] [place] [address] Consulting Physician Vascular Surgery 05/24/17 Aquiles Bay MD [address] [id number] Consulting Physician Cardiovascular Disease 05/24/17 Ellen Claudio MD [address] [place] [address] Yelena [place], [place] [id number] Consulting Physician Physical Medicine/Rehabilitation 05/24/17 Machine Try Out Setter Relationship Specialty Start Date End Date Phyllis Mae MD [address] [place] [address] PCP - General 07/02/19 Phyllis Mae MD [address] [place] [address] PCP - [employer] PCP 10/30/21 Machine Try Out Setter Relationship Specialty Start Date End Date Phyllis Mae MD [address] [place] [address] PCP - General Internal Medicine 04/14/20 Phyllis Mae MD [address] [place] [address] Internal Medicine 04/14/20 Rochelle Cheung MD [address] [place] [address] Consulting Physician Nephrology 04/12/17 Cameron Munguia III, DO [address] [place] [address] Consulting Physician Vascular Surgery 05/24/17 Aqu[place] MD [address] [address] Consulting Physician Cardiovascular Disease 05/24/17 Ellen Claudio MD [address] [place] [address] [address] [place], [place] [id number] Consulting Physician Physical Medicine/Rehabilitation 05/24/17 Machine Try Out Setter Relationship Specialty Start Date End Date Phyllis Mae MD [address] [place] [address] PCP - General 07/02/19 Phyllis Mae MD [address] [place] [address] P[address] - [facility] Medicare Advantage PCP 10/30/21 Machine Try Out Setter Relationship Specialty Start Date End Date Phyllis Mae MD [address] [place] [address] PCP - General Internal Medicine 04/14/20 Phyllis Mae MD [address] [place] [address] Internal Medicine 04/14/20 Rochelle Cheung MD [address] [place] [address] Consulting Physician Nephrology 04/12/17 Cameron Munguia III, DO [address] [place] [address] Consulting Physician Vascular Surgery 05/24/17 Aqu[place] MD [address] [place] [address] Consulting Physician Cardiovascular Disease 05/24/17 Ellen Claudio MD [address] [place] [address] Consulting Physician Physical Medicine/Rehabilitation 05/24/17 Machine Try Out Setter Relationship Specialty Start Date End Date Phyllis Mae MD [address] [place] [address] PCP - General Internal Medicine 04/14/20 Phyllis Mae MD [address] [place] [address] Internal Medicine 04/14/20 Rochelle Cheung MD [address] [place] [address] Consulting Physician Nephrology 04/12/17 Cameron Munguia III, DO [address] [place] [address] Consulting Physician Vascular Surgery 05/24/17 Aqu[place] MD [address] [place] [address] Consulting Physician Cardiovascular Disease 05/24/17 Ellen Claudio MD [address] [place] [address] Consulting Physician Physical Medicine/Rehabilitation 05/24/17 Machine Try Out Setter Relationship Specialty Start Date End Date Phyllis Mae MD [address] [place] [address] PCP - General 07/02/19 Phyllis Mae MD [address] [place] [address] PCP - [employer] Advantage PCP 10/30/21 Machine Try Out Setter Relationship Specialty Start Date End Date Phyllis Mae MD [address] [place] [address] PCP - General Internal Medicine 04/14/20 Phyllis Mae MD [address] [place] [address] Internal Medicine 04/14/20 Rochelle Cheung MD [address] [place] [address] Consulting Physician Nephrology 04/12/17 Cameron Munguia III, DO [address] [place] [address] Consulting Physician Vascular Surgery 05/24/17 [place] MD [address] [address] Consulting Physician Cardiovascular Disease 05/24/17 Ellen Claudio MD [address] [place], [place] [address] [address] Consulting Physician Physical Medicine/Rehabilitation 05/24/17 Team Status: [...] Status: Inactive Member Role/Relationship Status Dates Dr. hPyllis Mae MD Primary care physician Active Start: [...] BE BASED ON THE PRIMARY CLINICAL RECORDS. [facility]. provides no warranty or guarantee of the accuracy or completeness of information in this document.
[2025-08-28 09:29] LABS: Hematocrit 32.3 % (40-54); Hemoglobin 11.1 g/dL (13.0-16.5); Mean Corp Hgb Conc 34.4 g/dL (32-36); Mean Corpuscular Volume 93.6 fL (80-94); Mean Platelet Vol. 11.1 fl (6.2-12.0); Platelet Count 530 K/mm3 (150-450); RBC Distribution Width CV 13.7 % (11.6-14.6); RBC Distribution Width SD 47.0 fl (35.1-43.9); Red Blood Count 3.45 M/mm3 (4.6-6.2); White Blood Count 11.2 K/mm3 (4.4-11.0)
== END ==
LOC: OLS.SW 05:00
PROVIDERS: PCP Internal Medicine; Visit Provider Internal Medicine
DX: D72.829 Elevated white blood cell count, unspecified (principal)
CPT/HCPCS: 36415; 85027